=== PATIENT | female | born 1950 | race Caucasian/White ===

== ENCOUNTER → 2016-11-03 | Outpatient (CLI) | payer OTHER ==
[~2016-11-03] VITALS: Ht 157.5 cm; Wt 85.2 kg
[~2016-11-03] MED LIST: ALBUAER19 INH; ASTN NAE; CALC-20 PO; CHOL1CAP57 PO; CYAN10002 IM; CYCL5TAB PO; ESCI1TAB10 PO; FERR1TAB13 PO; FNTTP75 TOP; FRS/40 PO; GABA-113 PO; GABA300C19 PO; IPRA1AER2 INH; LACT1TAB4 PO; LORA-741 PO; MAGN400T5 PO; METO25TA56 PO; MIRA1TAB3 PO; MONT1TAB3 PO; MULT-190 PO; MULTCHW PO; NRN600 PO; OMEP20CA9 PO; ONDA4TAB46 PO; OXYC-57 PO; PANC1200 PO; POTA20TA16 PO; PYRI100T2 PO; RISP3TAB3 PO; SENNTAB23 PO; TRIA0.1P3 BU; [UNRECOGNIZED DRUG - CODE] PO; [UNRECOGNIZED DRUG - OTHER]
[2016-11-03 14:56] VITALS: BP 117/77; PULSE 66; Ht 157.5 cm; Wt 85.2 kg
== END | disposition home or self-care (01) ==
LOC: C.NEUR 13:50
PROVIDERS: ATTEND Internal Medicine Pulmonary Disease
DX: G47.30 Sleep apnea, unspecified (principal)

== ENCOUNTER → 2016-11-05 | Outpatient (CLI) | payer OTHER ==
--- NOTE | 2016-11-05 12:48 | DIAGNOSTIC IMAGING REPORT ---
CERVICAL SPINE 2 OR 3 VIEWS CLINICAL HISTORY: M54.2 Cervical pain (neck)[id number] COMPARISON STUDY: None. FINDINGS: AP, lateral, swimmer's, and odontoid views of the cervical spine were submitted. The cervical spine is visualized C1-T1. There is no fracture or subluxation. Disc spaces are preserved. Prevertebral soft tissues and the C1-C2 interval are intact. There are mild facet degenerative changes at C3-C4 and C6-C7. Mild interstitial thickening within the visualized lungs. This may be chronic. IMPRESSION: 1. No fracture or subluxation within the cervical spine. 2. Mild facet degenerative changes. The disc spaces are preserved. Electronically signed by: Noel Crenshaw M.D. 11/05/2016 12:47 PM Dictated Date/Time: 11/05/2016 12:44 PM
== END | disposition home or self-care (01) ==
LOC: C.RAD1850 11:37
PROVIDERS: ATTEND Internal Medicine
DX: M54.2 Cervicalgia (principal)

== ENCOUNTER → 2016-12-19 | Outpatient (CLI) | payer OTHER ==
--- NOTE | 2016-12-19 11:59 | DIAGNOSTIC IMAGING REPORT ---
RIGHT KNEE 3 VIEWS CLINICAL HISTORY: Chronic right knee pain. FINDINGS: AP, lateral, and sunrise views of the right knee are obtained. No prior studies are available for comparison at the time of dictation. The skeletal structures are osteopenic. A right knee arthroplasty is in near anatomic alignment. No periprosthetic lucency is identified. There has been undersurface remodeling of the patella. No fracture is seen. Mild heterotopic bone formation is noted along the lateral aspect of the joint space. No significant joint effusion is seen. The overlying soft tissues are within normal limits. IMPRESSION: No acute bony abnormality is seen in the right knee noting an arthroplasty in place. Electronically signed by: Chinedu Hicks M.D. 12/19/2016 11:58 AM Dictated Date/Time: 12/19/2016 11:56 AM
--- NOTE | 2016-12-19 12:02 | DIAGNOSTIC IMAGING REPORT ---
L-SPINE MIN 4 VIEWS ROUTINE CLINICAL HISTORY: Chronic back pain. COMPARISON: Lumbar spine MRI February 22, 2016. FINDINGS: Abdominal and pelvic surgical clips are noted. Bowel anastomoses are noted. There is a moderate amount of stool within the colon. Bowel gas pattern is normal. Mild dextroscoliosis of the lumbar spine is unchanged. No acute fracture or suspicious lesion is identified. Mild disc space narrowing at L5-S1 with osteophytosis is noted. There is endplate irregularity centered at the L2-L3 level which is unchanged. Soft tissue calcifications adjacent to the posterior iliac bones are chronic. IMPRESSION: 1. No acute lumbar spine fracture or subluxation. 2. No change in mild dextroscoliosis of the lumbar spine. 3. Mild multilevel degenerative disc disease and facet arthrosis. Electronically signed by: Mehrdad Torre M.D. 12/19/2016 12:01 PM Dictated Date/Time: 12/19/2016 11:59 AM
--- NOTE | 2016-12-19 12:05 | DIAGNOSTIC IMAGING REPORT ---
SINGLE VIEW PELVIS; 2 VIEWS RIGHT HIP CLINICAL HISTORY: Chronic right hip pain. FINDINGS: An AP view of the pelvis with AP and frog-leg views of the right hip are correlated with pelvic CT dated 12/29/2014. The skeletal structures are osteopenic. No fracture is seen in the hips or bony pelvis. Mild arthritic change is present in both hips. There is only mild loss of the joint space. Sclerotic change is noted in the sacroiliac joints. Large gluteal calcifications are again noted. Surgical clips and phleboliths are identified in the pelvis. The overlying soft tissues are within normal limits. IMPRESSION: Osteopenia and minimal arthritic change as above. No acute bony abnormality is seen in the hips or pelvis. Electronically signed by: Chinedu Hicks M.D. 12/19/2016 12:03 PM Dictated Date/Time: 12/19/2016 12:02 PM
--- NOTE | 2016-12-19 12:06 | DIAGNOSTIC IMAGING REPORT ---
RIGHT WRIST MIN 3 VIEWS ROUTINE CLINICAL HISTORY: Right wrist pain. COMPARISON: None FINDINGS: There is mild narrowing of the radiocarpal joint space. No fracture or suspicious lesion is identified. There is mild to moderate arthritis of the right first carpometacarpal joint. No erosions are identified. IMPRESSION: 1. No acute fracture or dislocation of the right wrist. 2. Mild to moderate arthritis of the right first carpometacarpal joint. 2. Mild radiocarpal joint space narrowing. Electronically signed by: Mehrdad Torre M.D. 12/19/2016 12:04 PM Dictated Date/Time: 12/19/2016 12:01 PM
== END | disposition home or self-care (01) ==
LOC: C.RAD1850 11:19
PROVIDERS: ATTEND Internal Medicine
DX: M25.539 Pain in unspecified wrist (principal); M25.551 Pain in right hip; M54.9 Dorsalgia, unspecified

== ENCOUNTER → 2017-03-10 | Outpatient (CLI) | payer OTHER ==
[~2017-03-10] MED LIST changes: +GABA-1218 PO; -GABA300C19 PO; +PREG100C PO
--- NOTE | 2017-03-10 15:25 | DIAGNOSTIC IMAGING REPORT ---
RIGHT HAND MIN 3 VIEWS ROUTINE CLINICAL HISTORY: Osteoarthritis of right thumb. COMPARISON: Right wrist radiographs December 19, 2016. FINDINGS: There is moderate joint space narrowing with osteophytosis of the right first carpometacarpal joint. There is moderate osteoarthritis within distal interphalangeal joints of multiple fingers of the right hand, most pronounced within the second digit. No fracture or suspicious osseous lesion is identified. IMPRESSION: 1. 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 2. Moderate osteoarthritis within multiple additional articulations of the right hand. Electronically signed by: Mehrdad Torre M.D. 03/10/2017 3:24 PM Dictated Date/Time: 03/10/2017 3:22 PM
== END | disposition home or self-care (01) ==
LOC: C.RAD1850 15:08
PROVIDERS: ATTEND Internal Medicine
DX: M19.041 Primary osteoarthritis, right hand (principal)

== ENCOUNTER → 2017-03-27 | Outpatient (CLI) | payer OTHER ==
[~2017-03-27] MED LIST changes: +REGADENOSON 0.4 MG/5 ML SYR ONE
--- NOTE | 2017-03-28 01:13 | MYOCARDIAL PERFUSION SCAN ---
ONE-DAY NUCLEAR MEDICINE TECHNETIUM-99M CARDIOLITE MYOCARDIAL PERFUSION SCAN PRIMARY CARE PHYSICIAN: Dr. Bailey INDICATION: Atypical chest pain, cardiac risk factors. EKG: Baseline EKG showed sinus bradycardia with first degree AV block and nonspecific ST changes. Stress EKG with Lexiscan, patient's heart rate jewels from 56 to 79 beats per minute, maximum predicted heart rate of 50%. There were no significant ST abnormalities. No significant arrhythmias. TECHNIQUE: For the stress portion of the study, 32.1 mCi of technetium-99m Cardiolite IV was injected at 1322 on 03/27/2017. Thirty minutes following the injection, imaging of the heart was performed in multiple projections. For the rest portion of the study, 11.08 mCi of technetium-99m Cardiolite was injected IV at 11:25. One hour following the injection, imaging of the heart was performed in the same projections. FINDINGS: The rotating raw images were reviewed in detail. There was mild breast attenuation and minimal diaphragmatic attenuation. There was also extraminimal gut uptake impacting the inferior imaging border of the heart. There was no significant extracardiac pathologic uptake. The short axis, long axis, vertical long axis images were reviewed in detail. There was no visual TID. There was a small mild, fixed perfusion defect involving the mid anterior septum, apical anterior wall. This was most consistent with breast attenuation and there was normal wall motion in that territory. EF was 85%, end-diastolic volume was 64%. There were no regional wall motion abnormalities. IMPRESSION: 1. Essentially normal Lexiscan myocardial perfusion study with no evidence of significant ischemia or infarct. 2. Normal left ventricular function with an ejection fraction of 85%. Normal left ventricular size. No regional wall motion abnormalities. 3. Nondiagnostic Lexiscan EKG due to inability to achieve target heart rate. MTDD
== END | disposition home or self-care (01) ==
LOC: C.NUCL 10:58
PROVIDERS: ATTEND Internal Medicine Interventional Cardiology
DX: E78.5 Hyperlipidemia, unspecified (principal); R07.89 Other chest pain

== ENCOUNTER → 2017-04-23 | Outpatient (CLI) | payer OTHER ==
[~2017-04-23] MED LIST changes: -GABA-1218 PO; +GABA300C19 PO; +GADAVIST IV PRN; -REGADENOSON 0.4 MG/5 ML SYR ONE
--- NOTE | 2017-04-23 13:42 | DIAGNOSTIC IMAGING REPORT ---
BRAIN COMBO CLINICAL HISTORY: R51 Intractable [id number] headache COMPARISON STUDY: 11/12/2015 TECHNIQUE: Utilizing a 1.5 Micaela magnet and dedicated coil, multiplanar, multiecho imaging of the brain was performed pre and postcontrast administration. IV administration of 8 mL of Gadavist contrast was uneventful. FINDINGS: Mild mucosal thickening right mastoid air cells. Signal characteristics of the cerebellar as well as cerebral hemispheres are unremarkable. There is a small focus of increased signal posterior left frontal lobe unchanged compared to prior exams. No evidence for abnormal postcontrast enhancement. Ventricular system is midline. No evidence for an acute ischemic insult. IMPRESSION: 1. Negative MRI of the brain for age. 2. Mild mucosal thickening right inferior mastoid air cells The above report was generated using voice recognition software. It may contain grammatical, syntax or spelling errors. Electronically signed by: Tano Michaud M.D. 04/23/2017 1:41 PM Dictated Date/Time: 04/23/2017 1:37 PM
== END | disposition home or self-care (01) ==
LOC: C.MRIBC 12:42
PROVIDERS: ATTEND Physician Assistant
DX: R51 Headache (principal)

== ENCOUNTER → 2017-06-02 | Outpatient (CLI) | payer OTHER ==
[~2017-06-02] MED LIST changes: -GADAVIST IV PRN
[2017-06-02 12:21] LABS: BASO % 0.4 %; BASO ABS # 0.02 K/uL (0-0.2); COMPLETE YES; EOS % 1.6 %; HEMATOCRIT 39.6 % (37-47); IG% 0.2 %; LYMPH % 30.6 %; LYMPH ABS # 1.56 K/uL (1.2-3.4); MEAN CELL VOLUME 86.1 fL (80-100); MEAN CORPUSCULAR HEMOGLOBIN 28.3 pg (25-34); MEAN CORPUSCULAR HGB CONC 32.8 g/dl (32-36); MEAN PLATELET VOLUME 9.1 fL (7.4-10.4); MONO % 6.3 %; NEUT % 60.9 %; PLATELET COUNT 230 K/uL (130-400)
[2017-06-02 12:41] LABS: ALT/SGPT 29 U/L (12-78); AST/SGOT 21 U/L (15-37); BLOOD UREA NITROGEN 21 mg/dl (7-18); BUN/CREATININE RATIO 28.8 (10-20); CALCIUM 8.5 mg/dl (8.5-10.1); CARBON DIOXIDE 27 mmol/L (21-32); CHLORIDE 106 mmol/L (98-107); CREATININE 0.73 mg/dl (0.60-1.20); GLUCOSE 91 mg/dl (70-99); POTASSIUM 4.5 mmol/L (3.5-5.1); SODIUM 137 mmol/L (136-145)
[2017-06-02 12:46] LABS: ALB/GLOB RATIO 1.1 (0.9-2); ALKALINE PHOSPHATASE 118 U/L (45-117); TOTAL IRON BINDING CAPACITY 349 mcg/dl (250-450)
== END | disposition home or self-care (01) ==
LOC: C.LAB1850 10:54
PROVIDERS: ATTEND Internal Medicine
DX: R26.89 Other abnormalities of gait and mobility (principal); E53.8 Deficiency of other specified B group vitamins; E55.9 Vitamin D deficiency, unspecified; D51.0 Vitamin B12 deficiency anemia due to intrinsic factor deficiency; E21.3 Hyperparathyroidism, unspecified

== ENCOUNTER → 2017-06-29 | Outpatient (CLI) | payer OTHER | END | disposition home or self-care (01) | LOC: C.MAMM 11:21 | PROVIDERS: ATTEND Internal Medicine | DX: M85.88 Other specified disorders of bone density and structure, other site (principal); M85.852 Other specified disorders of bone density and structure, left thigh; M85.851 Other specified disorders of bone density and structure, right thigh ==

== ENCOUNTER → 2017-09-02 | Outpatient (CLI) | payer OTHER ==
[~2017-09-02] MED LIST changes: -GABA300C19 PO
[2017-09-02 15:18] LABS: BENZODIAZEPINE, URINE NEG (NEG); COCAINE,URINE NEG (NEG); PHENCYCLIDINE, URINE NEG (NEG)
--- NOTE | 2017-09-07 11:45 | CODING QUERY MEDICAL NECESSITY ---
SUPPORTING DIAGNOSIS NEEDED Dr. Bailey, A supporting diagnosis is required for the test/procedure performed on this patient in order for us to be reimbursed by the patient's insurance. Please provide a supporting diagnosis for the following test/procedure listed below next to the test name along with your signature. *If there is no additional diagnosis for this patient that would support the following test/procedure please document that below next to the test/procedure. Test(s)/Procedure(s) that require a supporting diagnosis: * ([id number]) URINE DRUG SCREEN ([facility]) DIAGNOSIS: DATE OF SERVICE: 09/02/17 Provider Signature: Date: Thank you Bhargav Cannon [facility] Information Management Once completed, please kindly fax back to [phone] For questions please call [phone]
== END | disposition home or self-care (01) ==
LOC: C.LABSPEC 14:23
PROVIDERS: ATTEND Internal Medicine
DX: M54.9 Dorsalgia, unspecified (principal)

== ENCOUNTER 2017-12-09 14:34 | Inpatient (IN) | payer OTHER ==
[~2017-12-09] VITALS: Ht 154.9 cm; Wt 90.0 kg
[~2017-12-09 14:34] MED LIST changes: -FNTTP75 TOP; -OXYC-57 PO
[2017-12-09] MEDS ORDERED: LIDOCAINE/EPINEPH/TETRACAINE 1 EA SYR EXT STA (14:49)
[2017-12-09] MEDS ORDERED: ONDANSETRON INJ 2 MG/ML 2 ML VIAL IV STA (14:49)
[2017-12-09] MEDS ORDERED: SODIUM CHLORIDE 0.9% 1000ML 1,000 ML IV STA (14:49)
[2017-12-09] MEDS ORDERED: PREG1CAP70 PO (15:07)
[2017-12-09] MEDS ORDERED: WLC625 PO (15:07)
[2017-12-09] MEDS ORDERED: AMPI500C9 PO (15:07)
[2017-12-09] MEDS ORDERED: TRML160 TOP (15:07)
[2017-12-09] MEDS ORDERED: ALBU18002 INH (15:10)
--- NOTE | 2017-12-09 15:15 | EMERGENCY ROOM VISIT NOTE ---
History Report prepared by Lesley: Eugenia Connor Under the Supervision of: Dr. Boby Norton D.O. First contact with patient: 14:43 Chief Complaint: FALL Stated Complaint: FALL/LACERATION/WRIST PAIN History of Present Illness The patient is a 67 year old female who presents to the Emergency Room with complaints of a fall. The patient was getting gasoline when she tripped on a curb. She fell onto her left side mostly injuring her left upper extremity. The patient denies having any loss of consciousness but she did strike her head and suffered a laceration above her left eyebrow. The patient was splinted. She arrived to the emergency department via EMS. The patient denies having any back pain or abdominal pain. She does complain of neck pain but she states that she has some chronic neck pain. The patient states her pain is very severe especially in her left upper extremity. The patient denies having any nausea vomiting or chest pain. Patient's pain was mildly improved with splinting. Source of History: patient Onset: [employer] Position: arm (left) Symptom Intensity: severe Quality: other (fall) Timing: other (episodic) Modifying Factors (Relieving): other (splinting) Associated Symptoms: + neck pain, No LOC, No chest pain, No nausea, No vomiting, No abdominal pain, No back pain Review of Systems See HPI for pertinent positives & negatives. A total of 10 systems reviewed and were otherwise negative. Past Medical & Surgical Medical Problems: (1) Fever and chills (2) High output heart failure (3) Malnutrition following gastrointestinal surgery (4) Pernicious anemia (5) Wrist fracture, left Family History FH: coronary artery disease FH: diabetes mellitus Social History Smoking Status: Never Smoker Drug Use: none Marital Status: single Occupation Status: disabled Current/Historical Medications Scheduled Ampicillin (Ampicillin), 500 MG PO HS Colesevelam Hcl (Welchol), 625 MG PO TID Desipramine Hcl (Desipramine Hcl), 50 MG PO TID Desipramine Hcl (Desipramine Hcl), 100 MG PO HS Escitalopram Oxalate (Lexapro), 20 MG PO QAM Furosemide (Lasix), 40 MG PO QAM Metoprolol Tartrate (Lopressor) (Lopressor), 12.5 MG PO BID Mirabegron (Myrbetriq Er), 50 MG PO QAM Mometasone Furoate-Formoterol (Dulera 100/5 Mcg), 2 PUFFS INH BID Montelukast Sodium (Singulair), 10 MG PO QPM Omeprazole (Prilosec), 20 MG PO BID Pancrelipase (Lipase-Protease- (Creon 02260), 96,000 UNITS PO TIDM Potassium Ext Rel (Klor-Con), 20 MEQ PO QAM Pregabalin (Lyrica), 150 MG PO BID Risperidone (Risperdal), 3 MG PO HS Triamcinolone (Triamcinolone Acetonide), 1 APPLN TOP BID Scheduled PRN Albuterol Sulfate (Proair Respiclick), 2 PUFFS INH QID PRN for SOB/Wheezing Cyclobenzaprine Hcl (Flexeril), 5 MG PO DAILY PRN for Significant Headaches Lorazepam (Ativan), 0.5 MG PO TID PRN for Anxiety Miscellaneous Medications Cholecalciferol (Vitamin D3) Allergies Coded Allergies: Sulfa Antibiotics (Verified Allergy, Intermediate, Generalized Rash, ) Bupropion (Verified Allergy, Mild, NERVOUS REACTION, 12/09/17) Cephalosporins (Verified Allergy, Mild, UNKNOWN, 12/09/17) Levofloxacin (Verified Allergy, Mild, RASH,TURNED RED, 12/09/17) Prochlorperazine (Verified Allergy, Mild, NERVOUS REACTION, 12/09/17) Promethazine (Verified Allergy, Mild, UNKNOWN, 12/09/17) Tobramycin (Verified Allergy, Mild, UNKNOWN, 12/09/17) Bethanechol (Verified Allergy, Unknown, RASH, "FEELS FUNNY", 12/09/17) Clindamycin (Verified Allergy, Unknown, Unknown, 12/09/17) Per PCP records Dipyridamole (Verified Allergy, Unknown, UNKNOWN, 12/09/17) Droperidol (Verified Allergy, Unknown, Unknown, 12/09/17) Per PCP records Morphine and Related (Verified Allergy, Unknown, Unknown, 12/09/17) Per PCP records Penicillins (Verified Allergy, Unknown, RASH ALL OVER UPPER BODY NO RESP SYMPTOMS, 12/09/17) Piperacillin (Verified Allergy, Unknown, UNKNOWN, 12/09/17) Tazobactam (Verified Allergy, Unknown, RASH ALL OVER UPPER BODY NO RESP SYMPTOMS, 12/09/17) Aspirin (Verified Adverse Reaction, Severe, BLEEDING, 12/09/17) Tedizolid (Verified Adverse Reaction, Severe, GI SYMPTOMS, 12/09/17) Cephalexin (Verified Adverse Reaction, Unknown, GI SYMPTOMS, 12/09/17) VOMITED X 1 Ertapenem (Verified Adverse Reaction, Unknown, RASH, 12/09/17) Physical Exam Vital Signs Date Time Temp Pulse Resp B/P (MAP) Pulse Ox O2 Delivery O2 Flow Rate FiO2 12/09/17 16:23 67 20 101/57 95 Room Air 12/09/17 16:22 101/57 12/09/17 15:04 60 18 97 12/09/17 15:02 60 12/09/17 14:50 36.4 61 20 120/78 97 Room Air 12/09/17 14:36 120/78 Physical Exam GENERAL: Patient is awake and alert. She is very anxious and uncomfortable appearing. She appears to be in significant pain. EYES: The conjunctivae are clear. The pupils are round and reactive. There is a laceration lateral to the left eye. There is a wound dressing in place and no active bleeding was noted. EARS, NOSE, MOUTH AND THROAT: The nose is without any evidence of any deformity. Mucous membranes are moist tongue is midline NECK: The neck is diffusely tender on the paraspinal musculature. There is no midline tenderness. Range of motion appears intact. RESPIRATORY: Normal respiratory effort is noted there is no evidence of wheezing rhonchi or rales CARDIOVASCULAR: Regular rate and rhythm noted there no murmurs rubs or gallops normal S1 normal S2 GASTROINTESTINAL: The abdomen is soft. Bowel sounds are present in all quadrants. Abdomen is nontender BACK: No midline tenderness or or step-off noted range of motion in flexion extension as well as rotation no signs of muscle spasm noted MUSCULOSKELETAL/EXTREMITIES: There is gross deformity noted to the left upper extremity. There is angular deviation noted of the left hand compared to the left forearm. Capillary refill is symmetric. There is no tenderness over the shoulders or either lower extremities. SKIN: There is no obvious evidence of any rash. There is an abrasion over the ventral aspect of the left wrist. There does not appear to be an open fracture but this will be explored more thoroughly. NEUROLOGIC: Patient is awake alert and oriented x3. Strength is symmetric bilaterally. Medical Decision & Procedures ER Provider Diagnostic Interpretation: X-ray results as stated below per interpretation by me and the radiologist. Radiology results as stated below per my review and radiologist interpretation: CHEST ONE VIEW PORTABLE HISTORY: 67 years-old Female fall acute chest injury status post fall COMPARISON: Chest radiograph 06/04/2016 TECHNIQUE: Portable AP view of the chest FINDINGS: Cardiac silhouette is again mildly enlarged. Mild pulmonary vascular congestion with interstitial coarsening. The patient is slightly rotated to the right. There is no pneumothorax, pleural effusion or lobar airspace consolidation. Mild right hemidiaphragmatic elevation. Right internal jugular Bjoilc-l-Ioxr catheter is noted with distal tip in the region of the mid SVC. Surgical clips project over the epigastric region. Degenerative changes noted within the shoulders and spine. IMPRESSION: Cardiomegaly with mild pulmonary vascular congestion. The above report was generated using voice recognition software. It may contain grammatical, syntax or spelling errors. Electronically signed by: Ernesto Kirby M.D. 12/09/2017 3:34 PM Dictated Date/Time: 12/09/2017 3:33 PM L FOREARM 2 VIEWS ROUTINE CLINICAL HISTORY: 67 years-old Female presenting with fall. TECHNIQUE: Frontal and lateral views of the left forearm are obtained. COMPARISON: None. FINDINGS: Extensive soft tissue emphysema. Comminuted fractures of the distal radial and ulnar metaphyses. Significant dorsal displacement of the distal radial fracture fragment and carpus. The distal radial fracture may extend into the radial carpal articulation. The carpus remains intact. IMPRESSION: Open comminuted fractures of the distal radial and ulnar metaphyses with significant dorsal angulation (Colles' type fracture). Electronically signed by: Matthew Hernandez M.D. 12/09/2017 3:40 PM Dictated Date/Time: 12/09/2017 3:36 PM L HAND MIN 3 VIEWS ROUTINE CLINICAL HISTORY: 67 years-old Female presenting with fall. TECHNIQUE: Frontal, oblique, and lateral views of the left hand were obtained. COMPARISON: None. FINDINGS: Comminuted fractures of the distal radial and ulnar metaphyses. Soft tissue emphysema evident. Significant apex volar and apex medial angulation at the fracture sites. The distal radial fracture fragment and carpus are displaced dorsally. The distal radial fracture may be intra-articular, however, no disruption of the radiocarpal articulations. Degenerative changes noted at the first carpometacarpal articulation. Osteopenia suggested. IMPRESSION: Comminuted open fractures of the distal radial and ulnar metaphyses with significant angulation (Colles' type fracture). Electronically signed by: Matthew Hernandez M.D. 12/09/2017 3:50 PM Dictated Date/Time: 12/09/2017 3:[address] SCAN OF THE BRAIN WITHOUT IV CONTRAST CLINICAL HISTORY: Fall. COMPARISON STUDY: CT of the brain dated 08/10/2012. TECHNIQUE: Unenhanced axial CT scan of the brain is performed from the vertex to the skull base. A dose lowering technique was utilized adhering to the principles of ALARA. FINDINGS: Brain parenchyma: There are age-related involutional changes noting mild subcortical and periventricular microangiopathic change. There is no hemorrhage, mass effect, or evidence of acute territorial ischemia by CT criteria. Jerez-white matter is preserved. No extra-axial fluid collection is seen. Ventricles, sulci, cisterns: Prominent secondary to involutional change. Intracranial vasculature: There is atherosclerotic calcification of the cavernous carotid intervertebral arteries. Calvarium: The skeletal structures are osteopenic. No depressed calvarial fracture is seen. Soft tissues: There is left periorbital/supraorbital scalp contusion/laceration. Sinuses and mastoids: There is evidence of previous paranasal sinus surgery. There is moderate mucosal thickening in the right maxillary antrum. Mild mucosal thickening is seen in the left maxillary antrum, the right frontal sinus, and the ethmoid sinuses. The mastoid air cells are well pneumatized. Orbits: The bony orbits are grossly intact. There are bilateral ocular lens implants. IMPRESSION: 1. No acute intracranial abnormality. 2. Left frontal scalp injury. Electronically signed by: Chinedu Hicks M.D. 12/09/2017 4:19 PM Dictated Date/Time: 12/09/2017 4:[address] SCAN OF THE CERVICAL SPINE CLINICAL HISTORY: Fall. COMPARISON STUDY: Radiographs of the cervical spine dated 11/05/2016. TECHNIQUE: CT scan of the cervical spine is performed from the skull base to the upper thoracic spine. Images are reviewed in the axial, sagittal, and coronal planes. IV contrast was not administered for this examination. A dose lowering technique was utilized adhering to the principles of ALARA. CT DOSE: 1056.04 mGy.cm FINDINGS: Skeletal structures: The skeletal structures are osteopenic. There is no evidence of fracture or subluxation involving the cervical spine. Vertebral body height and alignment are maintained. The odontoid process and lateral masses are intact. The atlantoaxial articulation is preserved noting mild productive degenerative change. The spinous processes appear intact. A hemangioma is incidentally noted in the body of C6. Intervertebral discs: The disc spaces are well maintained. Central canal: Widely patent. Soft tissues: The prevertebral and paraspinous soft tissues are within normal limits. A right internal jugular central venous infusion port is in place. Calvarium: The visualized calvarium at the skull base appears intact. Brain parenchyma: Partially visualized brain parenchyma the skull base is within normal limits. Sinuses and mastoids: Moderate mucosal thickening is seen in the right maxillary antrum. Mild mucosal thickening is seen in the left maxillary antrum. The mastoid air cells are well pneumatized. Lung apices: Clear as visualized. IMPRESSION: There is no evidence of fracture or subluxation involving the cervical spine Electronically signed by: Chinedu Hicks M.D. 12/09/2017 4:24 PM Dictated Date/Time: 12/09/2017 4:20 PM Laboratory Results 12/09/17 15:37 Red Blood Count 4.39, Mean Corpuscular Volume 86.3, Mean Corpuscular Hemoglobin 28.5, Mean Corpuscular Hemoglobin Concent 33.0, Mean Platelet Volume 9.4, Neutrophils (%) (Auto) 61.0, Lymphocytes (%) (Auto) 30.7, Monocytes (%) (Auto) 6.2, Eosinophils (%) (Auto) 1.1, Basophils (%) (Auto) 0.5, Neutrophils # (Auto) 3.34, Lymphocytes # (Auto) 1.68, Monocytes # (Auto) 0.34, Eosinophils # (Auto) 0.06, Basophils # (Auto) 0.03 12/09/17 15:37 Test 12/09/17 15:37 White Blood Count 5.48 K/uL (4.8-10.8) Red Blood Count 4.39 M/uL (4.2-5.4) Hemoglobin 12.5 g/dL (12.0-16.0) Hematocrit 37.9 % (37-47) Mean Corpuscular Volume 86.3 fL (80-100) Mean Corpuscular Hemoglobin 28.5 pg (25-34) Mean Corpuscular Hemoglobin Concent 33.0 g/dl (32-36) Platelet Count 209 K/uL (130-400) Mean Platelet Volume 9.4 fL (7.4-10.4) Neutrophils (%) (Auto) 61.0 % Lymphocytes (%) (Auto) 30.7 % Monocytes (%) (Auto) 6.2 % Eosinophils (%) (Auto) 1.1 % Basophils (%) (Auto) 0.5 % Neutrophils # (Auto) 3.34 K/uL (1.4-6.5) Lymphocytes # (Auto) 1.68 K/uL (1.2-3.4) Monocytes # (Auto) 0.34 K/uL (0.11-0.59) Eosinophils # (Auto) 0.06 K/uL (0-0.5) Basophils # (Auto) 0.03 K/uL (0-0.2) RDW Standard Deviation 45.2 fL (36.4-46.3) RDW Coefficient of Variation 14.3 % (11.5-14.5) Immature Granulocyte % (Auto) 0.5 % Immature Granulocyte # (Auto) 0.03 K/uL (0.00-0.02) Prothrombin Time 10.9 SECONDS (9.0-12.0) Prothromb Time International Ratio 1.0 (0.9-1.1) Activated Partial Thromboplast Time 28.9 SECONDS (21.0-31.0) Partial Thromboplastin Ratio 1.1 Anion Gap 5.0 mmol/L (3-11) Est Creatinine Clear Calc Drug Dose 100.4 ml/min Estimated GFR () 112.7 Estimated GFR (Non- 97.3 BUN/Creatinine Ratio 34.9 (10-20) Calcium Level 8.3 mg/dl (8.5-10.1) Total Bilirubin 0.4 mg/dl (0.2-1) Direct Bilirubin < 0.1 mg/dl (0-0.2) Aspartate Amino Transf (AST/SGOT) 16 U/L (15-37) Alanine Aminotransferase (ALT/SGPT) 26 U/L (12-78) Alkaline Phosphatase 117 U/L (45-117) Total Protein 6.3 gm/dl (6.4-8.2) Albumin 3.2 gm/dl (3.4-5.0) Lipase 141 U/L (73-393) Laboratory results per my review. Medications Administered Medications (Trade) Dose Ordered Sig/Zoë Route Start Time Stop Time Status Last Admin Dose Admin Sodium Chloride 1,000 ml @ 999 mls/hr Q1H1M STAT IV 12/09/17 14:49 12/09/17 15:49 DC 12/09/17 14:49 999 MLS/HR Fentanyl Citrate (Fentanyl Inj) 50 mcg Q15M PRN IV 12/09/17 15:00 12/09/17 18:14 DC 12/09/17 15:50 50 MCG Ondansetron HCl (Zofran Inj) 4 mg NOW STAT IV 12/09/17 14:49 12/09/17 14:52 DC 12/09/17 15:18 4 MG Tetracaine/ Epinephrine/ Lidocaine (L.e.t. Gel 4%/ 1:100/0.5%) 1 ea UD STAT EXT 12/09/17 14:49 12/09/17 14:53 DC 12/09/17 15:50 1 EA Cefazolin Sodium 2000 mg/Dextrose 65 ml @ 100 mls/hr ONE STAT IV 12/09/17 15:51 12/09/17 16:29 DC 12/09/17 16:21 100 MLS/HR ED Course 1445: The patient was evaluated in room A10. A complete history and physical examination were performed. 1449: LET Gel EXT, Zofran Inj 4 mg IV, NSS 1000 ml @ 999 mls/hr IV. 1500: Fentanyl Inj 50 mcg IV. 1540: I reevaluated the patient. I updated her on the results. She does not have a preferred orthopedic group. 1545: I discussed the patient's case with Stef Lake PA-C orthopedic surgery [facility] and [facility]. The patient will be evaluated for further management. 1551: Cefazolin Sodium 2000 mg/Dextrose 65 ml @ 100 mls/hr IV. 1555: Upon reevaluation, the patient is stable. I discussed results and treatment plan with her. She verbalizes agreement and understanding. The patient will be evaluated for further management and care. 1600: The laceration was repaired by Nikunj Hidalgo PA-C. See his note for details. Medical Decision Prior records/ancillary studies reviewed. Triage Nursing notes reviewed. The patient's history was concerning for traumatic injury Differential diagnosis: Etiologies such as fracture, dislocation, intra-abdominal, pneumothorax, intrathoracic , intracranial, neurologic, as well as other traumatic pathologies were entertained. The patient is a 67-year-old female who presented to the emergency department after a fall. The patient suffered a fall while she was pumping gasoline for her car. She suffered an injury to the left upper extremity. She also struck the left side of her face. The patient was treated with IV fluids IV pain medicine and IV anti-medics. She was also given IV antibiotics for presumed open fracture. I discussed the patient's laboratory and radiographic studies with her. I also discussed her case with the on-call orthopedic physician. He is agreed to evaluate the patient in the emergency department for further management and disposition. Head Trauma GCS Score: 15 Medication Reconcilliation Current Medication List: was personally reviewed by me Blood Pressure Screening Patient's blood pressure: Normal blood pressure Blood pressure disposition: Did not require urgent referral Consults Time Called: [id number] Consulting Physician: Stef Lake PA-C orthopedic surgery [place] and [facility] Returned Call: [phone] I discussed the patient's case with him. The patient will be evaluated for further management. Impression Primary Impression: Fall Additional Impressions: Open Colles' fracture of left radius Facial laceration Scribe Attestation The scribe's documentation has been prepared under my direction and personally reviewed by me in its entirety. I confirm that the note above accurately reflects all work, treatment, procedures, and medical decision making performed by me. Departure Information Dispostion Being Evaluated By Surgeon Referrals No Doctor, Assigned (PCP) Patient Instructions [facility] Problem Qualifiers Primary Impression: Fall Encounter type: initial encounter Qualified Codes: W19.XXXA - Unspecified fall, initial encounter Additional Impressions: Open Colles' fracture of left radius Encounter type: initial encounter Open fracture type: open type I or II Qualified Codes: S52.532B - Colles' fracture of left radius, initial encounter for open fracture type I or II Facial laceration Encounter type: initial encounter Qualified Codes: S01.81XA - Laceration without foreign body of other part of head, initial encounter
[2017-12-09] MEDS: FENTANYL CITRATE INJ 50 MCG/1 ML 2 ML VIAL IV PRN ×2 (15:17→15:50)
--- NOTE | 2017-12-09 15:36 | DIAGNOSTIC IMAGING REPORT ---
CHEST ONE VIEW PORTABLE HISTORY: 67 years-old Female fall acute chest injury status post fall COMPARISON: Chest radiograph 06/04/2016 TECHNIQUE: Portable AP view of the chest FINDINGS: Cardiac silhouette is again mildly enlarged. Mild pulmonary vascular congestion with interstitial coarsening. The patient is slightly rotated to the right. There is no pneumothorax, pleural effusion or lobar airspace consolidation. Mild right hemidiaphragmatic elevation. Right internal jugular Qtfdfk-l-Envh catheter is noted with distal tip in the region of the mid SVC. Surgical clips project over the epigastric region. Degenerative changes noted within the shoulders and spine. IMPRESSION: Cardiomegaly with mild pulmonary vascular congestion. The above report was generated using voice recognition software. It may contain grammatical, syntax or spelling errors. Electronically signed by: Ernesto Kirby M.D. 12/09/2017 3:34 PM Dictated Date/Time: 12/09/2017 3:33 PM
--- NOTE | 2017-12-09 15:41 | DIAGNOSTIC IMAGING REPORT ---
L FOREARM 2 VIEWS ROUTINE CLINICAL HISTORY: 67 years-old Female presenting with fall. TECHNIQUE: Frontal and lateral views of the left forearm are obtained. COMPARISON: None. FINDINGS: Extensive soft tissue emphysema. Comminuted fractures of the distal radial and ulnar metaphyses. Significant dorsal displacement of the distal radial fracture fragment and carpus. The distal radial fracture may extend into the radial carpal articulation. The carpus remains intact. IMPRESSION: Open comminuted fractures of the distal radial and ulnar metaphyses with significant dorsal angulation (Colles' type fracture). Electronically signed by: Matthew Hernandez M.D. 12/09/2017 3:40 PM Dictated Date/Time: 12/09/2017 3:36 PM
[2017-12-09] MEDS ORDERED: CEFAZOLIN IV 2,000 MG in DEXTROSE 5% 50ML 50 ML IV STA (15:51)
--- NOTE | 2017-12-09 15:52 | DIAGNOSTIC IMAGING REPORT ---
L HAND MIN 3 VIEWS ROUTINE CLINICAL HISTORY: 67 years-old Female presenting with fall. TECHNIQUE: Frontal, oblique, and lateral views of the left hand were obtained. COMPARISON: None. FINDINGS: Comminuted fractures of the distal radial and ulnar metaphyses. Soft tissue emphysema evident. Significant apex volar and apex medial angulation at the fracture sites. The distal radial fracture fragment and carpus are displaced dorsally. The distal radial fracture may be intra-articular, however, no disruption of the radiocarpal articulations. Degenerative changes noted at the first carpometacarpal articulation. Osteopenia suggested. IMPRESSION: Comminuted open fractures of the distal radial and ulnar metaphyses with significant angulation (Colles' type fracture). Electronically signed by: Matthew Hernandez M.D. 12/09/2017 3:50 PM Dictated Date/Time: 12/09/2017 3:49 PM
[2017-12-09] MEDS ORDERED: XYLOCAINE 1%/SOD BICARB 20 ML VIAL INFIL STA (16:02)
[2017-12-09 16:09] LABS: BASO % 0.5 %; BASO ABS # 0.03 K/uL (0-0.2); EOS % 1.1 %; EOS ABS # 0.06 K/uL (0-0.5); HEMATOCRIT 37.9 % (37-47); HEMOGLOBIN 12.5 g/dL (12.0-16.0); IG# 0.03 K/uL (0.00-0.02); LYMPH % 30.7 %; LYMPH ABS # 1.68 K/uL (1.2-3.4); MEAN CELL VOLUME 86.3 fL (80-100); MEAN CORPUSCULAR HEMOGLOBIN 28.5 pg (25-34); MEAN PLATELET VOLUME 9.4 fL (7.4-10.4); MONO % 6.2 %; MONO ABS # 0.34 K/uL (0.11-0.59); NEUT ABS # 3.34 K/uL (1.4-6.5); PLATELET COUNT 209 K/uL (130-400); RED CELL DISTRIBUTION WIDTH CV 14.3 % (11.5-14.5); RED CELL DISTRIBUTION WIDTH SD 45.2 fL (36.4-46.3); WHITE BLOOD COUNT 5.48 K/uL (4.8-10.8)
[2017-12-09 16:17] LABS: PTT PATIENT 28.9 SECONDS (21.0-31.0)
--- NOTE | 2017-12-09 16:21 | DIAGNOSTIC IMAGING REPORT ---
CT SCAN OF THE BRAIN WITHOUT IV CONTRAST CLINICAL HISTORY: Fall. COMPARISON STUDY: CT of the brain dated 08/10/2012. TECHNIQUE: Unenhanced axial CT scan of the brain is performed from the vertex to the skull base. A dose lowering technique was utilized adhering to the principles of ALARA. FINDINGS: Brain parenchyma: There are age-related involutional changes noting mild subcortical and periventricular microangiopathic change. There is no hemorrhage, mass effect, or evidence of acute territorial ischemia by CT criteria. Jerez-white matter is preserved. No extra-axial fluid collection is seen. Ventricles, sulci, cisterns: Prominent secondary to involutional change. Intracranial vasculature: There is atherosclerotic calcification of the cavernous carotid intervertebral arteries. Calvarium: The skeletal structures are osteopenic. No depressed calvarial fracture is seen. Soft tissues: There is left periorbital/supraorbital scalp contusion/laceration. Sinuses and mastoids: There is evidence of previous paranasal sinus surgery. There is moderate mucosal thickening in the right maxillary antrum. Mild mucosal thickening is seen in the left maxillary antrum, the right frontal sinus, and the ethmoid sinuses. The mastoid air cells are well pneumatized. Orbits: The bony orbits are grossly intact. There are bilateral ocular lens implants. IMPRESSION: 1. No acute intracranial abnormality. 2. Left frontal scalp injury. Electronically signed by: Chinedu Hicks M.D. 12/09/2017 4:19 PM Dictated Date/Time: 12/09/2017 4:17 PM
--- NOTE | 2017-12-09 16:25 | DIAGNOSTIC IMAGING REPORT ---
CT SCAN OF THE CERVICAL SPINE CLINICAL HISTORY: Fall. COMPARISON STUDY: Radiographs of the cervical spine dated 11/05/2016. TECHNIQUE: CT scan of the cervical spine is performed from the skull base to the upper thoracic spine. Images are reviewed in the axial, sagittal, and coronal planes. IV contrast was not administered for this examination. A dose lowering technique was utilized adhering to the principles of ALARA. CT DOSE: 1056.04 mGy.cm FINDINGS: Skeletal structures: The skeletal structures are osteopenic. There is no evidence of fracture or subluxation involving the cervical spine. Vertebral body height and alignment are maintained. The odontoid process and lateral masses are intact. The atlantoaxial articulation is preserved noting mild productive degenerative change. The spinous processes appear intact. A hemangioma is incidentally noted in the body of C6. Intervertebral discs: The disc spaces are well maintained. Central canal: Widely patent. Soft tissues: The prevertebral and paraspinous soft tissues are within normal limits. A right internal jugular central venous infusion port is in place. Calvarium: The visualized calvarium at the skull base appears intact. Brain parenchyma: Partially visualized brain parenchyma the skull base is within normal limits. Sinuses and mastoids: Moderate mucosal thickening is seen in the right maxillary antrum. Mild mucosal thickening is seen in the left maxillary antrum. The mastoid air cells are well pneumatized. Lung apices: Clear as visualized. IMPRESSION: There is no evidence of fracture or subluxation involving the cervical spine Electronically signed by: Chinedu Hicks M.D. 12/09/2017 4:24 PM Dictated Date/Time: 12/09/2017 4:20 PM
[2017-12-09 16:26] LABS: ALBUMIN 3.2 gm/dl (3.4-5.0); ALT/SGPT 26 U/L (12-78); AST/SGOT 16 U/L (15-37); BLOOD UREA NITROGEN 20 mg/dl (7-18); CALCIUM 8.3 mg/dl (8.5-10.1); CARBON DIOXIDE 25 mmol/L (21-32); CREATININE 0.57 mg/dl (0.60-1.20); GLUCOSE 107 mg/dl (70-99); LIPASE 141 U/L (73-393); POTASSIUM 3.6 mmol/L (3.5-5.1); SODIUM 140 mmol/L (136-145)
[2017-12-09 16:29] LABS: ALKALINE PHOSPHATASE 117 U/L (45-117); TOTAL PROTEIN 6.3 gm/dl (6.4-8.2)
[2017-12-09] MEDS ORDERED: ONDANSETRON INJ 2 MG/ML 2 ML VIAL IV PRN (16:30)
[2017-12-09] MEDS ORDERED: OXYCODONE/ACETAMINOPHEN 5-325 TAB PO PRN (16:30)
--- NOTE | 2017-12-09 16:35 | EMERGENCY ROOM VISIT NOTE ---
ED Visit Note Patient was seen and evaluated by Dr. Norton. I was asked to perform primary wound closure of the L eyebrow laceration. It was 2 cm in length. Verbal consent was obtained prior to performing the procedure. LET gel and 2 cc of 1% buffered lidocaine was used to anesthetize the L eyebrow laceration. The wound was cleansed and prepped in the typical sterile fashion utilizing normal saline and Betadine. The wound was sterilely draped. Once proper anesthetization was established, the wound was further examined and demonstrated no deep involvement. The wound was copiously irrigated with normal saline and Betadine. The wound was closed using 3 simple, 6-0 nylon sutures with the wound edges being well approximated. Patient tolerated the procedure well. No complications were met. The wound was cleansed and dressed with a Bacitracin dressing. Blood Loss: <1cc Length: 2cm Total sutures: 3
[2017-12-09 16:45] VITALS: O2SAT 95; Ht 154.9 cm; Wt 90.0 kg
[2017-12-09] MEDS ORDERED: IV FLUIDS COMPLETED PRN (17:00)
[2017-12-09 18:00] VITALS: BP 152/82; PULSE 67; O2SAT 99
--- NOTE | 2017-12-09 18:12 | HISTORY & PHYSICAL EXAMINATION ---
DATE OF ADMISSION: 12/09/2017 CHIEF COMPLAINT: Left wrist pain. SECONDARY COMPLAINT: Facial laceration. HISTORY OF PRESENT ILLNESS: Liz is delightful, meeting her for the first time at Emergency Room at [facility]. She is 67. She fell, subacute injury, getting gasoline can and tripped on a curb. She fell to her left upper extremity, suffered acute injury, did hit her head, and did not lose consciousness. Also, injured her elbow. She came to the Emergency Room versus emergency transport, evaluation and treatment. PAST MEDICAL HISTORY: Positive for heart failure, gastrointestinal surgery, pernicious anemia, peptic ulcer disease. PAST SURGICAL HISTORY: Includes multiple stomach surgeries, right knee replacement, cholecystectomy, and hysterectomy. FAMILY HISTORY: Coronary artery disease, diabetes. SOCIAL HISTORY: Nonsmoker, nonuser. She is single. She is disabled. MEDICATIONS: Numerous and listed. ALLERGIES: SULFA, CLINDAMYCIN, TOBRAMYCIN, MORPHINE, PENICILLINS, ASPIRIN AND CEPHALOSPORINS. REVIEW OF SYSTEMS: She denies any blurred vision, double vision, tinnitus, vertigo. Admits to her head injury. Denies chest pain, palpitations, angina. Denies asthma, wheezing, shortness of breath. Denies nausea, vomiting. Does have a history of peptic ulcer disease and multiple surgeries. Denies urgency, frequency or dysuria. Her major complaint is her musculoskeletal left wrist pain. OBJECTIVE: VITAL SIGNS: Blood pressure 120/78, respiration rate is 20, pulse regular at 60, temperature 96.4. GENERAL: She is alert, oriented, comfortable, moderate pain. HEENT: Ear, nose and throat essentially negative. Does have a laceration about the left eye region, superior. NECK: Nontender. PULMONARY: Respiratory rate normal. No wheezing or rhonchi. CARDIAC: Regular rate and rhythm of her heart, no ectopy. ABDOMEN: Soft. Bowel sounds present. EXTREMITIES: There is gross deformity of the left upper extremity, angular deviation, small laceration. SKIN: Intact. No rashes. NEUROLOGICAL: Cranial nerves intact. Facial nerves intact. There is no deficit. No calf tenderness. IMAGING DATA: X-rays demonstrate a comminuted intraarticular fracture of the left distal radius and ulna, significant displacement. She does have some cardiomegaly on chest x-ray. LABORATORY DATA: White blood cell count 5.48, red blood cell count 4.39 and 12.5 hemoglobin. ASSESSMENT: Includes that of a delightful lady with multiple surgeries in the past. Some other significant comorbidities including heart failure, peptic ulcer disease. Acutely, she has a displaced intraarticular left wrist fracture, typically called a Colles fracture. PLAN: I am admitting her to my service for reduction of the wrist, pain control, and observation. Will have a medical consultation, evaluation and treatment to handle take care of her medical problems while she is in the hospital. We anticipate surgery tomorrow about midafternoon and then potentially discharged home on Thursday morning.
[2017-12-09] MEDS ORDERED: ACETAMINOPHEN IV 1,000 MG in EMPTY BAG 0 ML IV SCH (18:30)
[2017-12-09] MEDS: SODIUM CHLORIDE 0.9% 1000ML 1,000 ML IV SCH (18:35)
[2017-12-09] MEDS: OXYCODONE HCL IR 5 MG TAB (IMMEDIATE RELEASE) PO PRN ×2 (18:35→22:30)
[2017-12-09] MEDS ORDERED: CONSULT PHARMACY STA (20:39)
[2017-12-09] MEDS ORDERED: OPTIRAY 320 IV PRN (21:00)
[2017-12-09] MEDS ORDERED: NURSING VERBAL MED ORDER ONE (22:30)
[2017-12-09 23:14] VITALS: BP 122/78; PULSE 68; TEMP 36.4; O2SAT 100
[2017-12-09] MEDS ORDERED: MOME100A INH (23:28)
[2017-12-09] MEDS ORDERED: VTMD1000 (23:28)
[2017-12-09] MEDS ORDERED: CYCLOBENZAPRINE HCL 5 MG TAB PO PRN (23:30)
[2017-12-09] MEDS ORDERED: LORAZEPAM 0.5 MG TAB PO PRN (23:30)
[2017-12-09] MEDS ORDERED: ALBUTEROL HFA 8 GM INHALER INH PRN (23:30)
[2017-12-10] VITALS (9 sets, daily range): BP systolic 86–126; BP diastolic 53–85; PULSE 69–86; TEMP 36.4–36.8; O2SAT 91–100
[2017-12-10] MEDS: DESIPRAMINE 50 MG PO SCH ×5 (00:23→21:34)
[2017-12-10] MEDS: PREGABALIN 150 MG CAP PO SCH ×3 (00:23→21:32)
[2017-12-10] MEDS: METOPROLOL TARTRATE 25 MG TAB PO SCH ×3 (00:24→21:33)
[2017-12-10] MEDS: MONTELUKAST SOD 10 MG TAB PO SCH ×2 (00:24→21:33)
[2017-12-10] MEDS: PANTOprazole SOD 40 MG TAB PO SCH ×3 (00:25→21:34)
[2017-12-10] MEDS: RISPERIDONE 3 MG TAB PO SCH ×2 (00:25→21:33)
[2017-12-10] MEDS ORDERED: HYDROmorphone INJ 0.5 MG/0.5 ML SYR IV STA (00:39)
[2017-12-10] MEDS: OXYCODONE HCL IR 5 MG TAB (IMMEDIATE RELEASE) PO PRN ×3 (04:45→19:34)
[2017-12-10] MEDS: SODIUM CHLORIDE 0.9% 1000ML 1,000 ML IV SCH (05:44)
--- NOTE | 2017-12-10 07:20 | Medical Consult ---
Consultation Date of Consultation: Dec 09, 2017. Attending Physician: Yaron Ram DO Reason for Consultation: medication management History of Present Illness 67-year-old female presented to the ER after a mechanical fall at a gas station where she tripped on a curb. She fell to her upper left extremity and suffered an acute injury to her left wrist. She did hit her head and suffered a facial last 3 sutures. She did not lose consciousness. She came to the emergency room via emergency transport. In the ER the patient was splinted and orthopedics was consulted. Vital signs were stable and she was oxygenating 97% on room air physical exam was remarkable for a gross deformity of the left upper extremity with angular deviation noted of the left hand compared to the left forearm. Capillary refill with symmetric and there was no tenderness over the shoulders or either lower extremities. There was an abrasion over the ventral aspect of the left wrist. There did not appear to be an open fracture initially. Chest x-ray revealed cardiomegaly with mild pulmonary vascular congestion. The patient denied any history of worsening shortness of breath or chest pain in the last 6 months. She reports a chronic exercise tolerance of about 10 feet prior to having to stop to take a breath. 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 Rohith Otoole and no medication or treatment changes were made she denies any weight gain or swelling. Left forearm x-ray reveals an open comminuted fracture of the distal radius and ulnar metaphysis with significant dorsal angulation (Colles' type fracture). Lab work was unremarkable. She was given 1 L normal saline fentanyl 50, Zofran 4 mg, and 1 dose of cefazolin 2 g. The patient was admitted under Dr.'s Ram with potential surgical fix tomorrow. ROS reveals pain in LUE requiring some IV dilaudid. Past Medical/Surgical History Medical Problems: (1) Chronic diastolic (congestive) heart failure Status: Chronic (2) H/O methicillin resistant Staphylococcus aureus Status: Chronic (3) H/O peptic ulcer Status: Chronic (4) Malnutrition following gastrointestinal surgery Status: Chronic (5) Pernicious anemia Status: Chronic (6) Short bowel syndrome Status: Chronic Surgical Problems: (1) History of intestinal surgery Status: Chronic (2) S/P jeanine Status: Chronic (3) S/P hysterectomy Status: Chronic Family History FH: coronary artery disease FH: diabetes mellitus Social History Smoking Status: Never Smoker Smokeless Tobacco Use: No Alcohol Use: none Drug Use: none Marital Status: single Housing Status: lives alone Occupation Status: disabled Allergies Coded Allergies: Sulfa Antibiotics (Verified Allergy, Intermediate, Generalized Rash, ) Bupropion (Verified Allergy, Mild, NERVOUS REACTION, 12/09/17) Cephalosporins (Verified Allergy, Mild, UNKNOWN, 12/09/17) Levofloxacin (Verified Allergy, Mild, RASH,TURNED RED, 12/09/17) Prochlorperazine (Verified Allergy, Mild, NERVOUS REACTION, 12/09/17) Promethazine (Verified Allergy, Mild, UNKNOWN, 12/09/17) Tobramycin (Verified Allergy, Mild, UNKNOWN, 12/09/17) Bethanechol (Verified Allergy, Unknown, RASH, "FEELS FUNNY", 12/09/17) Clindamycin (Verified Allergy, Unknown, Unknown, 12/09/17) Per PCP records Dipyridamole (Verified Allergy, Unknown, UNKNOWN, 12/09/17) Droperidol (Verified Allergy, Unknown, Unknown, 12/09/17) Per PCP records Morphine and Related (Verified Allergy, Unknown, Unknown, 12/09/17) Per PCP records Penicillins (Verified Allergy, Unknown, RASH ALL OVER UPPER BODY NO RESP SYMPTOMS, 12/09/17) Piperacillin (Verified Allergy, Unknown, UNKNOWN, 12/09/17) Tazobactam (Verified Allergy, Unknown, RASH ALL OVER UPPER BODY NO RESP SYMPTOMS, 12/09/17) Aspirin (Verified Adverse Reaction, Severe, BLEEDING, 12/09/17) Tedizolid (Verified Adverse Reaction, Severe, GI SYMPTOMS, 12/09/17) Cephalexin (Verified Adverse Reaction, Unknown, GI SYMPTOMS, 12/09/17) VOMITED X 1 Ertapenem (Verified Adverse Reaction, Unknown, RASH, 12/09/17) Home Medications Active Reported Dulera 100/5 Mcg (Mometasone Furoate-Formoterol) 1 Aer Aer 2 Puffs INH BID 30 Days Vitamin D3 (Cholecalciferol) 1,000 Inter.unit Tab Proair Respiclick (Albuterol Sulfate) 108 Mcg/Act Aer 2 Puffs INH QID PRN Triamcinolone Acetonide (Triamcinolone) 60 Appln/60 Ml Lotn 1 Appln TOP BID Ampicillin 500 Mg Cap 500 Mg PO HS TAKES REGULARLY, PER H AT [facility] Welchol (Colesevelam Hcl) 625 Mg Tab 625 Mg PO TID Lyrica (Pregabalin) 150 Mg Cap 150 Mg PO BID Lasix (Furosemide) 40 Mg Tab 40 Mg PO QAM Desipramine Hcl 50 Mg Tab 100 Mg PO HS TWO 50 MG TABLETS AT BEDTIME Klor-Con (Potassium Chloride) 20 Meq Tabcr 20 Meq PO QAM Myrbetriq Er (Mirabegron) 50 Mg Tab 50 Mg PO QAM Flexeril (Cyclobenzaprine Hcl) 5 Mg Tab 5 Mg PO DAILY PRN PRN Creon 24300 (Pancrelipase (Lipase-Protease-) 1 Cap Cap 96,000 Units PO TIDM FOUR 24,000 UNIT CAPSULES TID WITH MEALS Desipramine Hcl 50 Mg Tab 50 Mg PO TID Ativan (Lorazepam) 0.5 Mg Tab 0.5 Mg PO TID PRN Risperdal (Risperidone) 3 Mg Tab 3 Mg PO HS Prilosec (Omeprazole) 20 Mg Cap 20 Mg PO BID Singulair (Montelukast Sodium) 10 Mg Tab 10 Mg PO QPM Lopressor (Metoprolol Tartrate) 25 Mg Tab 12.5 Mg PO BID Lexapro (Escitalopram Oxalate) 20 Mg Tab 20 Mg PO QAM Current Inpatient Medications Current Inpatient Medications Medications (Trade) Dose Ordered Sig/Zoë Route Start Time Stop Time Status Last Admin Dose Admin Ondansetron HCl (Zofran Inj) 4 mg Q6H PRN IV 12/09/17 16:30 01/08/18 16:29 Sodium Chloride 1,000 ml @ 80 mls/hr [id number] IV 12/09/17 18:15 01/08/18 18:14 12/09/17 18:35 80 MLS/HR Miscellaneous (Iv Fluids Completed) 1 ea PRN PRN N/A 12/09/17 17:00 12/09/18 16:59 Oxycodone HCl (Roxicodone Immediate Rel Tab) `1-2 tabs for pain 1 tab ... Q4H PRN PO 12/09/17 18:30 12/23/17 18:29 12/09/17 22:30 10 MG Ioversol (Optiray 320) 100 ml UD PRN IV 12/09/17 21:00 12/13/17 20:59 Acetaminophen 1000 mg/Empty Bag 100 ml @ 400 mls/hr Q8H IV 12/10/17 08:00 01/09/18 07:59 Heparin Sodium (Porcine) (Heparin 100 Unit/ml 5ml Flush) 5 ml PRN PRN IV 12/09/17 23:30 01/08/18 23:29 Review of Systems At least 10 systems were reviewed and negative except as indicated in HPI. Physical Exam Date Time Temp Pulse Resp B/P (MAP) Pulse Ox O2 Delivery O2 Flow Rate FiO2 12/09/17 18:00 67 16 152/82 (105) 99 Room Air 12/09/17 18:00 99 Room Air 12/09/17 17:34 66 129/76 100 12/09/17 17:04 63 99 12/09/17 16:45 95 Room Air 12/09/17 16:34 68 98 12/09/17 16:23 67 20 101/57 95 Room Air 12/09/17 16:22 101/57 12/09/17 15:04 60 18 97 12/09/17 15:02 60 12/09/17 14:50 36.4 61 20 120/78 97 Room Air 12/09/17 14:36 120/78 General Appearance: WD/WN, no apparent distress Head: normocephalic, atraumatic Eyes: normal inspection, PERRL, sclerae normal ENT: hearing grossly normal, pharynx normal Neck: trachea midline Respiratory/Chest: lungs clear, normal breath sounds, no respiratory distress, no accessory muscle use Cardiovascular: regular rate, rhythm, no edema, no gallop, no JVD, no murmur, normal peripheral pulses Abdomen/GI: normal bowel sounds, non tender, soft, no organomegaly Back: normal inspection Extremities/Musculoskelatal: no pedal edema, + pertinent finding (Left upper extremity is splinted, left finger is purple in color warm to touch, and neurovascularly intact) Neurologic/Psych: 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 as tested, alert, normal mood/affect, oriented x 3 Skin: warm/dry Laboratory Results 12/09/17 15:37 Red Blood Count 4.39, Mean Corpuscular Volume 86.3, Mean Corpuscular Hemoglobin 28.5, Mean Corpuscular Hemoglobin Concent 33.0, Mean Platelet Volume 9.4, Neutrophils (%) (Auto) 61.0, Lymphocytes (%) (Auto) 30.7, Monocytes (%) (Auto) 6.2, Eosinophils (%) (Auto) 1.1, Basophils (%) (Auto) 0.5, Neutrophils # (Auto) 3.34, Lymphocytes # (Auto) 1.68, Monocytes # (Auto) 0.34, Eosinophils # (Auto) 0.06, Basophils # (Auto) 0.03 12/09/17 15:37 Test 12/09/17 15:37 White Blood Count 5.48 K/uL (4.8-10.8) Red Blood Count 4.39 M/uL (4.2-5.4) Hemoglobin 12.5 g/dL (12.0-16.0) Hematocrit 37.9 % (37-47) Mean Corpuscular Volume 86.3 fL (80-100) Mean Corpuscular Hemoglobin 28.5 pg (25-34) Mean Corpuscular Hemoglobin Concent 33.0 g/dl (32-36) Platelet Count 209 K/uL (130-400) Mean Platelet Volume 9.4 fL (7.4-10.4) Neutrophils (%) (Auto) 61.0 % Lymphocytes (%) (Auto) 30.7 % Monocytes (%) (Auto) 6.2 % Eosinophils (%) (Auto) 1.1 % Basophils (%) (Auto) 0.5 % Neutrophils # (Auto) 3.34 K/uL (1.4-6.5) Lymphocytes # (Auto) 1.68 K/uL (1.2-3.4) Monocytes # (Auto) 0.34 K/uL (0.11-0.59) Eosinophils # (Auto) 0.06 K/uL (0-0.5) Basophils # (Auto) 0.03 K/uL (0-0.2) RDW Standard Deviation 45.2 fL (36.4-46.3) RDW Coefficient of Variation 14.3 % (11.5-14.5) Immature Granulocyte % (Auto) 0.5 % Immature Granulocyte # (Auto) 0.03 K/uL (0.00-0.02) Prothrombin Time 10.9 SECONDS (9.0-12.0) Prothromb Time International Ratio 1.0 (0.9-1.1) Activated Partial Thromboplast Time 28.9 SECONDS (21.0-31.0) Partial Thromboplastin Ratio 1.1 Anion Gap 5.0 mmol/L (3-11) Est Creatinine Clear Calc Drug Dose 100.4 ml/min Estimated GFR () 112.7 Estimated GFR (Non- 97.3 BUN/Creatinine Ratio 34.9 (10-20) Calcium Level 8.3 mg/dl (8.5-10.1) Total Bilirubin 0.4 mg/dl (0.2-1) Direct Bilirubin < 0.1 mg/dl (0-0.2) Aspartate Amino Transf (AST/SGOT) 16 U/L (15-37) Alanine Aminotransferase (ALT/SGPT) 26 U/L (12-78) Alkaline Phosphatase 117 U/L (45-117) Total Protein 6.3 gm/dl (6.4-8.2) Albumin 3.2 gm/dl (3.4-5.0) Lipase 141 U/L (73-393) Last 24 Hours Test 12/09/17 15:37 White Blood Count 5.48 K/uL Red Blood Count 4.39 M/uL Hemoglobin 12.5 g/dL Hematocrit 37.9 % Mean Corpuscular Volume 86.3 fL Mean Corpuscular Hemoglobin 28.5 pg Mean Corpuscular Hemoglobin Concent 33.0 g/dl Platelet Count 209 K/uL Mean Platelet Volume 9.4 fL Neutrophils (%) (Auto) 61.0 % Lymphocytes (%) (Auto) 30.7 % Monocytes (%) (Auto) 6.2 % Eosinophils (%) (Auto) 1.1 % Basophils (%) (Auto) 0.5 % Neutrophils # (Auto) 3.34 K/uL Lymphocytes # (Auto) 1.68 K/uL Monocytes # (Auto) 0.34 K/uL Eosinophils # (Auto) 0.06 K/uL Basophils # (Auto) 0.03 K/uL RDW Standard Deviation 45.2 fL RDW Coefficient of Variation 14.3 % Immature Granulocyte % (Auto) 0.5 % Immature Granulocyte # (Auto) 0.03 K/uL Prothrombin Time 10.9 SECONDS Prothromb Time International Ratio 1.0 Activated Partial Thromboplast Time 28.9 SECONDS Partial Thromboplastin Ratio 1.1 Sodium Level 140 mmol/L Potassium Level 3.6 mmol/L Chloride Level 110 mmol/L Carbon Dioxide Level 25 mmol/L Anion Gap 5.0 mmol/L Blood Urea Nitrogen 20 mg/dl Creatinine 0.57 mg/dl Est Creatinine Clear Calc Drug Dose 100.4 ml/min Estimated GFR () 112.7 Estimated GFR (Non- 97.3 BUN/Creatinine Ratio 34.9 Random Glucose 107 mg/dl Calcium Level 8.3 mg/dl Total Bilirubin 0.4 mg/dl Direct Bilirubin < 0.1 mg/dl Aspartate Amino Transf (AST/SGOT) 16 U/L Alanine Aminotransferase (ALT/SGPT) 26 U/L Alkaline Phosphatase 117 U/L Total Protein 6.3 gm/dl Albumin 3.2 gm/dl Lipase 141 U/L Assessment & Plan 67-year-old female status post mechanical fall with left open Colles' wrist fracture 1. Left wrist Colles' fracture after mechanical fall-management per Orth O. Splint in place pain meds as needed. Plan for surgical fixation tomorrow. 2. Chronic diastolic heart failure-compensated. Management per Dr. Rohith Otoole who recently saw her as an outpatient last week. Continue medical management with Lasix 40 mg daily, metoprolol 12.5 mg twice daily. 3. Facial laceration-sutured in the ER. Some ecchymosis present. 4. Asthma-controlled. Continue Dulera, Singulair, and albuterol as needed. No wheezing heard on exam. 5. Depression/anxiety-continue Lexapro and try cyclic antidepressant. Lorazepam as needed 6. History of multiple bowel surgeries and dependence on feeding tube for over 20 years-feeding tube has been removed for several years, multiple scars and incisional hernias on abdominal exam. Patient takes Creon capsules with each meal for chronic pancreatic insufficiency. 7. Chronic pain-continue home regimen including Flexeril as needed, Lyrica. 8. history of MRSA DVT prophylaxis-SCDs Full code Disposition per orthopedics Thank you for this consultation. We will follow the patient throughout her hospital stay. Dr. Roman will assume care in a.m. Dee Mccullough DO [facility]
[2017-12-10] MEDS: DULERA~ORDER AWAITING ACTION SCH ×2 (08:00→16:37)
[2017-12-10] MEDS: PANCREAZE (LIPASE 10,500U) CAP PO SCH ×3 (08:30→19:33)
[2017-12-10] MEDS: ACETAMINOPHEN IV 1,000 MG in EMPTY BAG 0 ML IV SCH ×3 (08:41→19:33)
[2017-12-10] MEDS: ESCITALOPRAM OXALATE 20 MG TAB PO SCH (09:57)
[2017-12-10] MEDS: CHOLECALCIFEROL 1000 INTER.UNIT TAB PO SCH (09:57)
[2017-12-10] MEDS: FUROSEMIDE 40 MG TAB PO SCH (09:57)
[2017-12-10] MEDS: POTASSIUM CHLORIDE 20 MEQ TABCR PO SCH (09:58)
[2017-12-10] MEDS: MIRABEGRON ER 25 MG TAB PO SCH (10:36)
--- NOTE | 2017-12-10 13:43 | Pain Clinic Procedure Note ---
Pain Management Procedure Note Procedure Date Dec 07, 2017. Procedure Description Procedure Time Out: side/site verified, patient ID confirmed, correct procedure Consent Obtained: written Performed By: Dr. Garcia Indications: therapeutic Contraindications: none Pre Procedure Vital Signs Date Time Temp Pulse Resp B/P (MAP) Pulse Ox O2 Delivery O2 Flow Rate FiO2 12/10/17 08:38 71 93/59 (70) 12/10/17 08:15 Room Air 12/10/17 07:16 36.4 71 16 86/53 (64) 91 Room Air ASA Class: 3 Description: INTERLAMINAR EPIDURAL STEROID INJECTION Diagnosis: Lumbar radiculitis, intervertebral disc disease Level injected: L1/L2 Surgeon: Dr. Garcia Prior to starting, the Patients diagnosis and the procedure were reviewed with the patient in detail. Possible risks, complications and alternative therapies were also reviewed. Patients questions were answered. Informed consent was obtained. Allergies and medication list was reviewed. The patient was brought to the fluoroscopy room and placed in prone position on the table. Immediately prior to starting the procedure, a ``time out was conducted with the staff and the patient where the patient was identified, proposed procedure was verified, consent was reviewed and the proper site for the planned procedure was identified. Fluoroscopy was utilized in performing the procedure to assist the placement of the needle, to evaluate the final position of the needle prior to injection and to avoid intravascular injection. Monitors used included intermittent blood pressure with automated device, continuous pulse oximetry and level of consciousness. Patient was not given any intravenous sedation and constant verbal contact was maintained throughout the procedure. Biplanar fluoroscopy was used to assist the placement of the needle and to evaluate final needle position prior to injection. Lumbar-sacral area was prepped with DuraPrep and Betadine solution. Sterile drapes were applied. A true AP view of the superior endplate of the L2 vertebra was obtained. Skin and soft tissue over the inferior aspect of the interlaminar laminar notch was infiltrated with 1 mL of 1% Xylocaine using a 25 gauge needle. Midline approach was utilized. A 20 gauge, 3.5 inch Tuohy needle was then inserted through the anesthetized area and advanced under fluoroscopic guidance through the intraspinous ligaments. C-arm was then turned to a true lateral view and the needle was advanced through the ligamentum flavum into the epidural space with [id number] technique with air. Upon entering the epidural space the patient did not experience pain or paresthesia. Bevel of the needle was directed in the cephalad direction. 6 inch micro bore tubing was attached to the needle and aspiration via the needle demonstrated no CSF or blood. In a lateral view, 1cc Isovue 300 contrast was injected via the needle under live fluoroscopy. The contrast was noted to be in the dorsal epidural space. No subarachnoid spread of contrast was noted. Presence of contrast was verified and contralateral oblique view. Finally, an AP view was then checked and additional 1cc of the contrast was injected under live fluoroscopy. Neither subdural or subarachnoid spread nor intravascular uptake was noted on plain fluoroscopy. No vascular uptake was noted on a 10 second run of digital subtraction angiography at rate of 8 fps. Next, 80 mg Kenalog followed by 3cc of preservation free 0.9% saline was injected via the epidural needle gradually. Patient did not experience any pain , paresthesia or discomfort throughout the injection period. Needle was flushed with additional 0.5 ML of saline withdrawn. Adequate hemostasis was noted. A sterile Band-Aid was applied at the injection site. Patient was then placed in sitting position. Patient was monitored for additional 30 minutes in the waiting area and discharged with an accompanying adult. Discharge instructions were reviewed with the Patient. Any specific questions were answered. Patient voiced understanding of the instructions. Follow-up appointment has been scheduled. Complications: none Patient Tolerated Procedure: well Post-procedure Vital Signs: reviewed and stable Discharge Instructions: reviewed & understood Comments: Potential risks including infection, bleeding, nerve injury, persistent pain at the injection site, reaction to any one of the medication used for the procedure , possibly of postdural puncture headache as well as persistent symptoms after the procedure were discussed with the patient. Alternatives to this procedure were also discussed with the patient. Patient's questions were answered. Patient gave informed consent.
[2017-12-10] MEDS ORDERED: PROPOFOL IV EMULSION 10 MG/ML 20 ML VIAL IV ONE (16:07)
[2017-12-10] MEDS ORDERED: LIDOCAINE HCL 2% 2 ML VIAL (20MG/ML) ONE (16:07)
[2017-12-10] MEDS ORDERED: ONDANSETRON INJ 2 MG/ML 2 ML VIAL ONE (16:07)
[2017-12-10] MEDS ORDERED: FENTANYL CITRATE INJ 50 MCG/1 ML 2 ML VIAL ONE (16:08)
[2017-12-10] MEDS ORDERED: MIDAZOLAM HCL 1 MG/ML 2ML VIAL ONE (16:08)
[2017-12-10] MEDS ORDERED: BUPIVACAINE/EPINEPHRINE 0.5% MPF 1:200,000 30 ML VIAL ONE (16:20)
[2017-12-10] MEDS ORDERED: CEFAZOLIN SOD 1000MG/7.5 ML IV PUSH IV ONE (16:35)
--- NOTE | 2017-12-10 16:39 | History & Physical Bridge Note ---
H&P Re-Evaluation Bridge Note: I have examined the patient, reviewed the History & Physical and in the interval since the performance of the History & Physical I have noted the following changes of clinical significance: No changes noted
[2017-12-10] MEDS ORDERED: NURSING VERBAL MED ORDER ONE (16:45)
[2017-12-10] MEDS ORDERED: BUPIVACAINE 0.5 % 5 MG/1 ML PF 10ML VIAL ONE (17:17)
--- NOTE | 2017-12-10 17:42 | Progress Note ---
Internal Med Progress Note Date of Service: Dec 10, 2017. Provider Documentation: SUBJECTIVE: The patient was seen and examined Complains of some left UE pain No other symptoms OBJECTIVE: Vital Signs-as noted below Exam: General-no distress at rets Eyes-normal ENT-normal Neck-supple Lungs-Clear to auscultate bilaterally Heart-Regular,no murmur appreciated Abdomen-Benign,no masses ,bowel sound present Extremities-No edema Left UE is in bandage Neuro-AAOx3 Lab data as noted below. ASSESSMENT & PLAN: 67-year-old female status post mechanical fall with left open Colles' wrist fracture Left wrist Colles' fracture after mechanical fall-management per Ortho. Splint in place pain meds as needed. Plan for surgical fixation this afternoon . Chronic diastolic heart failure-compensated. Management per Dr. Rohith Otoole who recently saw her as an outpatient last week. Continue medical management with Lasix 40 mg daily, metoprolol 12.5 mg twice daily. No acute symptoms now Medically stable to go for the proposed surgery Facial laceration-sutured in the ER. Some ecchymosis present. Asthma-controlled. Continue Dulera, Singulair, and albuterol as needed. No wheezing heard on exam. Depression/anxiety-continue Lexapro and try cyclic antidepressant. Lorazepam as needed History of multiple bowel surgeries and dependence on feeding tube for over 20 years-feeding tube has been removed for several years, Multiple scars and incisional hernias on abdominal exam. Patient takes Creon capsules with each meal for chronic pancreatic insufficiency. Chronic pain-continue home regimen including Flexeril as needed, Lyrica. History of MRSA No acute infection DVT prophylaxis-SCDs Full code Disposition per orthopedics Vital Signs: Date Time Temp Pulse Resp B/P (MAP) Pulse Ox O2 Delivery O2 Flow Rate FiO2 12/10/17 08:38 71 93/59 (70) 12/10/17 08:15 Room Air 12/10/17 07:16 36.4 71 16 86/53 (64) 91 Room Air 12/10/17 00:28 69 114/75 (88) 12/09/17 23:50 Nasal Cannula 2.0 12/09/17 23:14 36.4 68 15 122/78 (93) 100 Nasal Cannula 2.0 12/09/17 18:00 67 16 152/82 (105) 99 Room Air 12/09/17 18:00 99 Room Air
--- NOTE | 2017-12-10 18:01 | [facility] Post Operative Brief Note ---
Immediate Operative Summary Operative Date Dec 10, 2017. Pre-Operative Diagnosis left wrist fracture Post-Operative Diagnosis left wrist fracture Procedure(s) Performed Left Wrist External Fixator, release left carpal canal Surgeon Dr. Yaron Ram Barber Or Beauty [employer] Manager Surgeon(s) Stef JOSHUA Estimated Blood Loss 20ml Findings Consistent with Post-Op Diagnosis Specimens none per surgeon Drains None Anesthesia Type General Disposition Accompanied Pt To Recover: yes
[2017-12-10] MEDS ORDERED: MAGNESIUM HYDROXIDE SUSP 30 ML UDC PO PRN (18:15)
[2017-12-10] MEDS ORDERED: BISACODYL 10 MG SUPP PR PRN (18:15)
[2017-12-10] MEDS ORDERED: HYDROmorphone INJ 1 MG/ML SYR ONE (18:20)
[2017-12-10] MEDS ORDERED: HYDROmorphone INJ 2 MG/ML SYR/VIAL IV PRN (18:30)
[2017-12-10] MEDS ORDERED: ATROPINE SULFATE 0.1 MG/ML 5ML SYR IV PRN (18:30)
[2017-12-10] MEDS ORDERED: ONDANSETRON INJ 2 MG/ML 2 ML VIAL IV PRN (18:30)
--- NOTE | 2017-12-10 18:47 | DIAGNOSTIC IMAGING REPORT ---
L FOREARM 2 VIEWS ROUTINE HISTORY: 67 years-old Female LEFT DISTAL FOREARM REDUCTION AND EXTERNAL FIXATION status post ORIF of the left forearm with acute distal radius and ulnar fractures COMPARISON: Left forearm radiographs 12/09/2017. TECHNIQUE: 2 spot fluoroscopic images of the left forearm were obtained utilizing 12.9 seconds fluoroscopy time FINDINGS: There is improved alignment of the comminuted fractures of the distal radius and ulna status post reduction. Intra-articular extension of the distal radial fractures suspected. There is now only minimal cortical displacement dorsally. Persistent soft tissue swelling. Orthopedic metallic device is noted overlying the distal radial diaphysis. IMPRESSION: Improved alignment status post reduction of the comminuted distal radial and ulnar fractures. The above report was generated using voice recognition software. It may contain grammatical, syntax or spelling errors. Electronically signed by: Ernesto Kirby M.D. 12/10/2017 6:45 PM Dictated Date/Time: 12/10/2017 6:43 PM
--- NOTE | 2017-12-10 19:21 | OPERATIVE REPORT ---
DATE OF OPERATION: 12/10/2017 PREOPERATIVE DIAGNOSIS: Colles fracture, left upper extremity. POSTOPERATIVE DIAGNOSIS: Colles fracture left upper extremity, carpal tunnel syndrome and hematoma in the palmar aspect of her left hand. PROCEDURE: Reduction of her Colles fracture with an external fixator placement along with a release of her left carpal canal. DESCRIPTION OF PROCEDURE: The patient was examined by me in the preoperative area and holding and in the operating room itself. I was concerned about the coloration and loss of sensation to her fingers, particularly the index and long. My assessment was that she had compression of the carpal canal at the time of her trauma as well and the injury to her distal left radius. A tourniquet was applied to her left upper extremity after a LMA anesthetic. We scrubbed her first, prepped her second, and commenced with surgery and we were able to reduce it fairly readily. Two pins were placed in the index metacarpal, 2 pins in the radius. We were able to reduce it out to a normal length with normal tilt. I was pleased with the reduction and the external fixator was tightened into place. I then addressed the median nerve in the carpal canal of the same hand. I felt it was tight. I felt there was some hematoma involved and indeed there was. I made a skin incision, fascial incision, dissected the palmar fascia, dissected the transverse carpal ligament. There was significant amount of hematoma within the carpal canal; this was evacuated. We irrigated thoroughly. I felt it was safe to close the wounds and we closed with 4-0 nylon suture. Sterile dressings applied. The patient returned to PACU stable. Her condition remains guarded. There were no complications. No specimen and sponge and needle count correct at the close. I attest to the content of the Intraoperative Record and any orders documented therein. Any exception s are noted below.
[2017-12-10] MEDS: WELCHOL~ORDER AWAITING ACTION SCH (19:27)
--- NOTE | 2017-12-10 19:49 | Anesthesiology Progress Note ---
Anesthesia Post Op Note Date & Time Dec 10, 2017 at 19:49 Vital Signs Vital Signs Past 12 Hours Date Time Temp Pulse Resp B/P (MAP) Pulse Ox O2 Delivery O2 Flow Rate FiO2 12/10/17 19:39 86 15 126/82 (97) 99 Nasal Cannula 2.0 12/10/17 19:04 81 16 12/10/17 19:04 81 16 100 12/10/17 19:01 130/75 12/10/17 18:59 81 14 100 12/10/17 18:59 81 14 12/10/17 18:56 127/77 12/10/17 18:54 81 20 99 12/10/17 18:54 81 20 12/10/17 18:52 36.7 12/10/17 18:51 134/78 12/10/17 18:49 82 16 12/10/17 18:49 78 16 99 12/10/17 18:48 82 18 12/10/17 18:48 81 18 98 12/10/17 18:46 132/81 12/10/17 18:43 82 16 12/10/17 18:43 81 16 99 12/10/17 18:41 134/81 12/10/17 18:38 81 14 12/10/17 18:38 81 14 99 12/10/17 18:37 82 16 99 12/10/17 18:37 82 16 12/10/17 18:36 132/74 12/10/17 18:32 83 15 12/10/17 18:32 83 15 99 12/10/17 18:31 140/84 12/10/17 18:27 82 16 12/10/17 18:27 82 16 99 12/10/17 18:26 143/91 12/10/17 18:24 82 14 99 12/10/17 18:24 82 14 12/10/17 18:21 141/86 12/10/17 18:19 82 19 99 12/10/17 18:19 82 19 12/10/17 18:16 146/84 12/10/17 18:14 82 22 12/10/17 18:14 82 22 100 12/10/17 18:11 145/85 12/10/17 18:09 84 25 100 12/10/17 18:09 85 25 12/10/17 18:06 145/83 12/10/17 18:05 142/101 12/10/17 18:04 36.1 88 22 145/83 99 Oxymask 10 12/10/17 18:04 89 19 99 12/10/17 18:04 89 19 12/10/17 08:38 71 93/59 (70) 12/10/17 08:15 Room Air Notes Mental Status: alert / awake / arousable, participated in evaluation Pt Amnestic to Procedure: Yes Nausea / Vomiting: adequately controlled Pain: adequately controlled Airway Patency, RR, SpO2: stable & adequate BP & HR: stable & adequate Hydration State: stable & adequate Anesthetic Complications: no major complications apparent
[2017-12-10] MEDS: POTASSIUM CHLORIDE INJ 10 MEQ in SODIUM CHLORIDE 0.9% 1000ML 1,000 ML IV SCH (21:31)
[2017-12-10] MEDS: DOCUSATE SODIUM 100 MG CAP PO SCH (21:32)
[2017-12-11] VITALS (10 sets, daily range): BP systolic 89–108; BP diastolic 57–72; PULSE 67–83; TEMP 36.7–37; O2SAT 84–97
[2017-12-11] MEDS: CEFAZOLIN IV 2,000 MG in SYRINGE 0 ML IV SCH ×3 (00:33→15:51)
[2017-12-11] MEDS: POTASSIUM CHLORIDE INJ 10 MEQ in SODIUM CHLORIDE 0.9% 1000ML 1,000 ML IV SCH ×2 (04:48→14:32)
[2017-12-11] MEDS: ACETAMINOPHEN IV 1,000 MG in EMPTY BAG 0 ML IV SCH ×2 (04:49→12:13)
[2017-12-11] MEDS: DULERA~ORDER AWAITING ACTION SCH ×4 (08:00→23:25)
[2017-12-11] MEDS: PANCREAZE (LIPASE 10,500U) CAP PO SCH ×3 (09:21→17:55)
[2017-12-11] MEDS: PANTOprazole SOD 40 MG TAB PO SCH ×2 (09:23→21:00)
[2017-12-11] MEDS: METOPROLOL TARTRATE 25 MG TAB PO SCH ×2 (09:23→21:00)
[2017-12-11] MEDS: DESIPRAMINE 50 MG PO SCH ×4 (09:23→21:00)
[2017-12-11] MEDS: POTASSIUM CHLORIDE 20 MEQ TABCR PO SCH (09:23)
[2017-12-11] MEDS: DOCUSATE SODIUM 100 MG CAP PO SCH ×2 (09:23→21:00)
[2017-12-11] MEDS: MIRABEGRON ER 25 MG TAB PO SCH (09:23)
[2017-12-11] MEDS: FUROSEMIDE 40 MG TAB PO SCH (09:24)
[2017-12-11] MEDS: ESCITALOPRAM OXALATE 20 MG TAB PO SCH (09:25)
[2017-12-11] MEDS: CHOLECALCIFEROL 1000 INTER.UNIT TAB PO SCH (09:25)
[2017-12-11] MEDS: WELCHOL~ORDER AWAITING ACTION SCH ×4 (09:25→23:26)
[2017-12-11] MEDS: PREGABALIN 150 MG CAP PO SCH ×2 (09:43→21:00)
[2017-12-11] MEDS: OXYCODONE HCL IR 5 MG TAB (IMMEDIATE RELEASE) PO PRN ×2 (09:44→15:51)
--- NOTE | 2017-12-11 10:06 | Anesthesiology Progress Note ---
Anesthesia Post Op Note Date & Time Dec 11, 2017 at 10:05 Vital Signs Pain Intensity: 10.0 Vital Signs Past 12 Hours Date Time Temp Pulse Resp B/P (MAP) Pulse Ox O2 Delivery O2 Flow Rate FiO2 12/11/17 09:42 97 Room Air 12/11/17 09:22 83 105/70 (82) 12/11/17 08:03 37.0 80 14 98/64 (75) 97 Room Air 12/11/17 02:56 37.0 72 16 103/69 (80) 93 Nasal Cannula 12/11/17 00:30 Nasal Cannula 2.0 12/10/17 22:46 36.8 76 15 106/71 (83) 100 Nasal Cannula 2.0 12/10/17 22:31 36.5 77 14 111/75 (87) 100 Nasal Cannula 2.0 Notes Mental Status: alert / awake / arousable, participated in evaluation Pt Amnestic to Procedure: Yes Nausea / Vomiting: adequately controlled Pain: improving with treatment, see Notes Airway Patency, RR, SpO2: stable & adequate BP & HR: stable & adequate Hydration State: stable & adequate Anesthetic Complications: no major complications apparent RN currently getting pain medication for patient. patient encouraged to take when due for controlled pain or have them call doctor for different/ additional break through pain medications.
--- NOTE | 2017-12-11 15:41 | Progress Note ---
Internal Med Progress Note Date of Service: Dec 11, 2017. Provider Documentation: SUBJECTIVE: The patient was seen and examined Complains of some left UE pain No other symptoms Feels better OOB in a chair Has had Physical Therapy OBJECTIVE: Vital Signs-as noted below Exam: General-no distress at rest Eyes-normal ENT-normal Neck-supple Lungs-Clear to auscultate bilaterally Heart-Regular,no murmur appreciated Abdomen-Benign,no masses ,bowel sound present Extremities-No edema Left UE is in bandage Neuro-AAOx3 Lab data as noted below. ASSESSMENT & PLAN: 67-year-old female status post mechanical fall with left open Colles' wrist fracture Left wrist Colles' fracture after mechanical fall-management per Ortho. Splint in place pain meds as needed. S/P Fixation last evening Minimal Pain at rest . Chronic diastolic heart failure-compensated. Management per Dr. Rohith Otoole who recently saw her as an outpatient last week. Continue medical management with Lasix 40 mg daily, metoprolol 12.5 mg twice daily. Medically stable to go for the proposed surgery No acute symptoms Facial laceration-sutured in the ER. Some ecchymosis present. Asthma-controlled. Continue Dulera, Singulair, and albuterol as needed. No wheezing heard on exam. Depression/anxiety-continue Lexapro and try cyclic antidepressant. Lorazepam as needed Denies any acute symptoms History of multiple bowel surgeries and dependence on feeding tube for over 20 years-feeding tube has been removed for several years, Multiple scars and incisional hernias on abdominal exam. Patient takes Creon capsules with each meal for chronic pancreatic insufficiency. Chronic pain-continue home regimen including Flexeril as needed, Lyrica. Has been on Roxicodone History of MRSA No acute infection DVT prophylaxis-SCDs Full code Disposition per orthopedics Medically stable Vital Signs: Date Time Temp Pulse Resp B/P (MAP) Pulse Ox O2 Delivery O2 Flow Rate FiO2 12/11/17 15:30 36.8 67 18 89/57 (68) 95 Room Air 12/11/17 12:04 36.9 70 14 96/63 (74) 90 Room Air 12/11/17 09:42 97 Room Air 12/11/17 09:22 83 105/70 (82) 12/11/17 08:03 37.0 80 14 98/64 (75) 97 Room Air 12/11/17 08:00 Room Air 12/11/17 02:56 37.0 72 16 103/69 (80) 93 Nasal Cannula 12/11/17 00:30 Nasal Cannula 2.0 12/10/17 22:46 36.8 76 15 106/71 (83) 100 Nasal Cannula 2.0 12/10/17 22:31 36.5 77 14 111/75 (87) 100 Nasal Cannula 2.0 12/10/17 21:10 74 15 113/75 (88) 94 Nasal Cannula 2.0 12/10/17 20:16 82 16 124/85 (98) 98 Nasal Cannula 2.0 12/10/17 19:39 86 15 126/82 (97) 99 Nasal Cannula 2.0 12/10/17 19:10 94 Nasal Cannula 2.0 12/10/17 19:10 36.4 83 15 121/80 (94) 94 Nasal Cannula 2.0 12/10/17 19:10 94 Nasal Cannula 2.0 12/10/17 19:04 81 16 12/10/17 19:04 81 16 100 12/10/17 19:01 130/75 12/10/17 18:59 81 14 100 12/10/17 18:59 81 14 12/10/17 18:56 127/77 12/10/17 18:54 81 20 99 12/10/17 18:54 81 20 12/10/17 18:52 36.7 12/10/17 18:51 134/78 12/10/17 18:49 82 16 12/10/17 18:49 78 16 99 12/10/17 18:48 82 18 12/10/17 18:48 81 18 98 12/10/17 18:46 132/81 18 18:43 82 16 12/10/17 18:43 81 16 99 18 18:41 134/81 12/10/17 18:38 81 14 12/10/17 18:38 81 14 99 12/10/17 18:37 82 16 99 12/10/17 18:37 82 16 12/10/17 18:36 132/74 12/10/17 18:32 83 15 12/10/17 18:32 83 15 99 12/10/17 18:31 140/84 3/8/18 18:27 82 16 12/10/17 18:27 82 16 99 12/10/17 18:26 143/91 12/10/17 18:24 82 14 99 12/10/17 18:24 82 14 12/10/17 18:21 141/86 12/10/17 18:19 82 19 99 12/10/17 18:19 82 19 12/10/17 18:16 146/84 12/10/17 18:14 82 22 12/10/17 18:14 82 22 100 12/10/17 18:11 145/85 12/10/17 18:09 84 25 100 12/10/17 18:09 85 25 12/10/17 18:06 145/83 12/10/17 18:05 142/101 12/10/17 18:04 36.1 88 22 145/83 99 Oxymask 10 12/10/17 18:04 89 19 99 12/10/17 18:04 89 19
[2017-12-11] MEDS ORDERED: OXYC-106 PO (15:49)
--- NOTE | 2017-12-11 15:54 | Discharge Instructions ---
Discharge Instructions Date of Service Dec 11, 2017. Admission Reason for Admission: Wrist Fracture, Left Discharge Discharge Diagnosis / Problem: wrist fracure, head trauma Discharge Goals Goal(s): Improve function Activity Recommendations Activity Limitations: as noted below Lifting Limitations: no more than 5 pounds Exercise/Sports Limitations: until after follow-up appointment May Resume Sexual Activity: after follow-up appointment Shower/Bathe: keep incision dry very limited use of left hand . Instructions / Follow-Up Instructions / Follow-Up HOME, REST, TAKE IT EASY. PATIENT TO CALL OFFICE , THURSDAY @ [phone]. PLEASE MAKE AN APPOINTMENT FOR THE OR December. Current Hospital Diet Patient's current hospital diet: Regular Diet Discharge Diet Recommended Diet: Regular Diet Procedures Procedures Performed: Left Wrist External Fixator, release left carpal canal Pending Studies Studies pending at discharge: no Medical Emergencies . Who to Call and When: Medical Emergencies: If at any time you feel your situation is an emergency, please call 911 immediately. . Non-Emergent Contact Non-Emergency issues call your: Primary Care Provider Call Non-Emergent contact if: you have any medication questions . "Provider Documentation" section prepared by Yaron Ram. .
--- NOTE | 2017-12-11 17:47 | ORTHOPEDICS PROGRESS NOTE ---
DATE: 12/11/2017 SUBJECTIVE: She is alert, oriented. Moderate hand pain, wrist pain post trauma. OBJECTIVE: Vital signs stable. Alert, oriented. White cell count 4.8, hematocrit 37.9. ASSESSMENT: Status post fracture dislocation left wrist, head trauma, and multiple medical problems. DISPOSITION: She needs to stay 1 more day. We will try to get her up and ambulatory, control her pain. Tentative discharge will be tomorrow the 12 of December.
[2017-12-11] MEDS: TRIAMCINOLONE~ORDER AWAITING ACTION SCH ×2 (17:55→23:25)
[2017-12-11] MEDS: MONTELUKAST SOD 10 MG TAB PO SCH (21:00)
[2017-12-11] MEDS: RISPERIDONE 3 MG TAB PO SCH (21:00)
[2017-12-12] MEDS ORDERED: FUROSEMIDE INJ 40 MG in SYRINGE 0 ML IV ONE
[2017-12-12] MEDS: OXYCODONE/ACETAMINOPHEN 10/325MG TAB PO PRN ×2 (00:26→08:05)
[2017-12-12 03:36] VITALS: BP 106/63; PULSE 78; TEMP 36.5; O2SAT 94; O2SAT 98
--- NOTE | 2017-12-12 06:20 | DIAGNOSTIC IMAGING REPORT ---
CHEST ONE VIEW PORTABLE HISTORY: 67 years-old Female acute SOB after fluids, h/o CHF, hypoxic, thx acute shortness of breath COMPARISON: Chest radiograph 12/09/2017 TECHNIQUE: Portable AP view of the chest FINDINGS: Cardiac silhouette is again enlarged. Right internal jugular Oycsta-i-Sapf catheter is unchanged. Mild pulmonary vascular congestion without overt pulmonary edema. Calcifications of the tracheobronchial tree are noted. Mild right hemidiaphragmatic elevation. Linear subsegmental scarring of the lateral left upper lobe is unchanged. Surgical clips project over the epigastric region. Degenerative changes are noted within the shoulders and spine. IMPRESSION: Stable appearance of the chest with cardiomegaly and mild pulmonary vascular congestion. The above report was generated using voice recognition software. It may contain grammatical, syntax or spelling errors. Electronically signed by: Ernesto Kirby M.D. 12/12/2017 6:18 AM Dictated Date/Time: 12/12/2017 6:16 AM
[2017-12-12] MEDS: TRIAMCINOLONE~ORDER AWAITING ACTION SCH ×2 (08:00→16:00)
[2017-12-12] MEDS: WELCHOL~ORDER AWAITING ACTION SCH ×2 (08:00→16:00)
[2017-12-12] MEDS: DULERA~ORDER AWAITING ACTION SCH ×2 (08:00→16:00)
[2017-12-12] MEDS: PANCREAZE (LIPASE 10,500U) CAP PO SCH ×3 (08:24→17:59)
[2017-12-12] MEDS: PANTOprazole SOD 40 MG TAB PO SCH (08:26)
[2017-12-12] MEDS: CHOLECALCIFEROL 1000 INTER.UNIT TAB PO SCH (08:26)
[2017-12-12] MEDS: ESCITALOPRAM OXALATE 20 MG TAB PO SCH (08:26)
[2017-12-12] MEDS: DOCUSATE SODIUM 100 MG CAP PO SCH (08:26)
[2017-12-12] MEDS: POTASSIUM CHLORIDE 20 MEQ TABCR PO SCH (08:28)
[2017-12-12] MEDS: METOPROLOL TARTRATE 25 MG TAB PO SCH (08:28)
[2017-12-12] MEDS: MIRABEGRON ER 25 MG TAB PO SCH (08:29)
[2017-12-12] MEDS: FUROSEMIDE 40 MG TAB PO SCH (08:29)
[2017-12-12] MEDS: DESIPRAMINE 50 MG PO SCH ×2 (08:29→14:33)
[2017-12-12] MEDS: PREGABALIN 150 MG CAP PO SCH (08:34)
[2017-12-12 08:38] VITALS: BP 104/61; PULSE 81; TEMP 37.2; O2SAT 93
--- NOTE | 2017-12-12 09:27 | Discharge Instructions ---
Discharge Instructions Date of Service Dec 12, 2017. Admission Reason for Admission: Wrist Fracture, Left Discharge Discharge Diagnosis / Problem: same, head trauma Discharge Goals Goal(s): Improve function Activity Recommendations Activity Limitations: as noted below Lifting Limitations: no more than 5 pounds, gradually increase as tolerated Exercise/Sports Limitations: until after follow-up appointment Shower/Bathe: keep incision dry home, rest, recover. limited use of left hand . Instructions / Follow-Up Instructions / Follow-Up HOME REST, RECOVER. PATIENT TO CALL OFFICE @ [phone] FOR AN APPOINTMENT NEXT WEEK IN THE OFFICE Current Hospital Diet Patient's current hospital diet: Regular Diet Discharge Diet Recommended Diet: Regular Diet Procedures Procedures Performed: Left Wrist External Fixator, release left carpal canal Pending Studies Studies pending at discharge: no Medical Emergencies . Who to Call and When: Medical Emergencies: If at any time you feel your situation is an emergency, please call 911 immediately. . Non-Emergent Contact Non-Emergency issues call your: Primary Care Provider Call Non-Emergent contact if: you have any medication questions . "Provider Documentation" section prepared by Yaron Ram. .
[2017-12-12 11:09] LABS: HEMOGLOBIN 11.9 g/dL (12.0-16.0); MEAN CORPUSCULAR HEMOGLOBIN 29.1 pg (25-34); MEAN CORPUSCULAR HGB CONC 33.1 g/dl (32-36); MEAN PLATELET VOLUME 8.9 fL (7.4-10.4); PLATELET COUNT 182 K/uL (130-400); RED CELL DISTRIBUTION WIDTH CV 14.5 % (11.5-14.5); RED CELL DISTRIBUTION WIDTH SD 47.2 fL (36.4-46.3); WHITE BLOOD COUNT 9.36 K/uL (4.8-10.8)
[2017-12-12 11:45] LABS: CALCIUM 7.6 mg/dl (8.5-10.1); CREATININE 0.81 mg/dl (0.60-1.20)
[2017-12-12] MEDS ORDERED: POTASSIUM CHLORIDE 10 MEQ TABCR PO STA ×2 (11:58→14:53)
[2017-12-12] MEDS ORDERED: MAGNESIUM CHLORIDE 64MG DELAYED REL TAB PO ONE ×2 (12:00→15:00)
--- NOTE | 2017-12-12 12:06 | Progress Note ---
Internal Med Progress Note Date of Service: Dec 12, 2017. Provider Documentation: SUBJECTIVE: The patient was seen and examined Complains of some left UE pain No other symptoms Has had Some SOB last night Received IV Lasix Much better this AM OBJECTIVE: Vital Signs-as noted below Exam: General-no distress at rest Eyes-normal ENT-normal Neck-supple Lungs-Minimal crackles bilaterally at the Bases Heart-Regular,no murmur appreciated Abdomen-Benign,no masses ,bowel sound present Extremities-No edema Left UE is in bandage Neuro-AAOx3 Lab data as noted below. ASSESSMENT & PLAN: 67-year-old female status post mechanical fall with left open Colles' wrist fracture SOB -last night-secondary to mild CHF The Mild CHF was an Acute Exacerbation of the Chronic Diastolic CHF Received IV Lasix last night Potassium is low Replaced will recheck before discharge PCP appointment made on 12/16 at 12:45 AM Left wrist Colles' fracture after mechanical fall-management per Ortho. Splint in place pain meds as needed. S/P Fixation last evening Minimal Pain at rest . Chronic diastolic heart failure-compensated. Management per Dr. Rohith Otoole who recently saw her as an outpatient last week. Continue medical management with Lasix 40 mg daily, metoprolol 12.5 mg twice daily. Medically stable to go for the proposed surgery No acute symptoms Facial laceration-sutured in the ER. Some ecchymosis present. Asthma-controlled. Continue Dulera, Singulair, and albuterol as needed. No wheezing heard on exam. Depression/anxiety-continue Lexapro and try cyclic antidepressant. Lorazepam as needed Denies any acute symptoms History of multiple bowel surgeries and dependence on feeding tube for over 20 years-feeding tube has been removed for several years, Multiple scars and incisional hernias on abdominal exam. Patient takes Creon capsules with each meal for chronic pancreatic insufficiency. Chronic pain-continue home regimen including Flexeril as needed, Lyrica. Has been on Roxicodone History of MRSA No acute infection DVT prophylaxis-SCDs Full code Disposition per orthopedics Medically stable to be discharged Vital Signs: Lab Results:
[2017-12-12 14:51] LABS: CALCIUM 7.4 mg/dl (8.5-10.1); CREATININE 0.82 mg/dl (0.60-1.20)
[2017-12-12 15:45] VITALS: BP 109/72; PULSE 78; TEMP 37.1; O2SAT 92
[2017-12-12] MEDS: POTASSIUM CHLR 10 MEQ / WTR 10 MEQ in PREMIXED WATER 100 ML IV SCH ×2 (16:13→17:24)
--- NOTE | 2017-12-15 09:11 | EDITING REQUIRED CODING QUERY ---
CODING QUERY To promote full compliance with coding requirements relating to patient care, provider participation is requested in all cases of import/export agent uncertainty. Please assist us with the question(s) below: Coding Question(s): There is documentation on the 12/12/17 Progress Note of the patient having had some SOB last night and received IV Lasix and documentation of SOB last night likely secondary to Mild CHF as well as documentation of Chronic Diastolic heart failure through the record. Please clarify below regarding the Mild CHF type when the patient receiving IV Lasix. (+ ) The Mild CHF was an Acute Exacerbation of the Chronic Diastolic CHF ( ) The Mild CHF was Chronic Diastolic CHF ( ) The Mild CHF was other: Specify Physician's Response(s): Thank you Nadia Murillo Principal Diagnosis: "_that condition established after study, to be chiefly responsible for occasioning the admission of the patient to the hospital for care." Co-Existing Principal Diagnosis: "_when two or more diagnoses equally meet the criteria for principal diagnosis as determined by the circumstances of admission, diagnostic work up, and/or therapy provided, and the Alphabetic Index, Tabular List, or another coding guideline does not provide sequencing direction, any one of the diagnoses may be sequenced first." "When the physician has documented what appears to be a current diagnosis in the body of the record, but has not included the diagnosis in the final diagnostic statement, the physician should be asked whether the diagnosis should be added." (Source Coding [facility] 2 QTR90. p3-4)
--- NOTE | 2017-12-20 16:56 | DISCHARGE SUMMARY ---
HISTORY OF PRESENT ILLNESS: Alert, oriented. Minimal complaints of pain. No chest pain, shortness of breath, no confusion. Vital signs stable. Neurologically intact. Discharged home in improved stable condition. Medications offered, follow up offered; instructions, precautions given to her and through the head nurse as well.
== END 2017-12-12 19:00 | disposition home or self-care (01) | DRG 510 ==
LOC: EDBD 14:34 → C.EDA 14:36 → C.3E 16:25 → ENRESERV 17:22 → OBSVTOIN 12-11 14:58
PROVIDERS: ADMIT Orthopaedic Surgery Orthopaedic Surgery of the Spine; ATTEND Orthopaedic Surgery Orthopaedic Surgery of the Spine
PROC: 0HQ1XZZ Repair Face Skin, External Approach (ICD-10-PCS; 2017-12-09)
PROC: 0PSJ05Z Reposition Left Radius with External Fixation Device, Open Approach (ICD-10-PCS; principal; 2017-12-10 07:30)
PROC: 0J9K0ZZ Drainage of Left Hand Subcutaneous Tissue and Fascia, Open Approach (ICD-10-PCS; principal; 2017-12-10 07:30)
PROC: 01N50ZZ Release Median Nerve, Open Approach (ICD-10-PCS; principal; 2017-12-10 07:30)
DX: S52.532B Colles' fracture of left radius, initial encounter for open fracture type I or II (principal); I50.33 Acute on chronic diastolic (congestive) heart failure; G56.02 Carpal tunnel syndrome, left upper limb; S60.222A Contusion of left hand, initial encounter; S01.112A Laceration without foreign body of left eyelid and periocular area, initial encounter; M54.2 Cervicalgia; G89.29 Other chronic pain; J45.909 Unspecified asthma, uncomplicated; K86.89 Other specified diseases of pancreas; F32.9 Major depressive disorder, single episode, unspecified; F41.9 Anxiety disorder, unspecified; Z79.899 Other long term (current) drug therapy; Z87.11 Personal history of peptic ulcer disease; Z86.14 Personal history of Methicillin resistant Staphylococcus aureus infection; Z88.2 Allergy status to sulfonamides; Z88.8 Allergy status to other drugs, medicaments and biological substances; Z88.1 Allergy status to other antibiotic agents; Z88.5 Allergy status to narcotic agent; Z88.0 Allergy status to penicillin; Z88.6 Allergy status to analgesic agent; Z82.49 Family history of ischemic heart disease and other diseases of the circulatory system; Z83.3 Family history of diabetes mellitus; W22.8XXA Striking against or struck by other objects, initial encounter; Y92.524 Gas station as the place of occurrence of the external cause; Y99.8 Other external cause status

== ENCOUNTER 2018-01-14 08:47 | Day surgery (SDC) | payer OTHER ==
[2018-01-13 08:23] VITALS: Ht 154.9 cm; Wt 79.5 kg
[~2018-01-14] VITALS: Ht 154.9 cm; Wt 79.5 kg
--- NOTE | 2018-01-14 08:40 | HISTORY & PHYSICAL EXAMINATION ---
DATE OF ADMISSION: 01/14/2018 CHIEF COMPLAINT: Left wrist pain and malunion of left wrist. HISTORY: Liz is a most delightful patient. She is 67. She suffered a severe wrist fracture a few weeks ago. She had nice reduction, has gone on to a little bit of malunion and malalignment. She is being set up today for a manipulation under anesthetic of her left wrist fracture. MEDICAL HISTORY: Multiple stomach surgeries, right knee surgery, cholecystectomy, hysterectomy. FAMILY HISTORY: Coronary artery disease, diabetes. SOCIAL HISTORY: Nonsmoker, single, disabled. MEDICATIONS: Numerous and listed. ALLERGIES: SULFA, CLINDAMYCIN, TOBRAMYCIN, MORPHINE, PENICILLIN. REVIEW OF SYSTEMS: She denies any blurred vision, double vision, tinnitus, vertigo, syncope. No current angina. No shortness of breath. No asthma. No nausea or vomiting. No bowel or bladder issues. Her major positive complaint is her left wrist. PHYSICAL EXAMINATION: VITAL SIGNS: Blood pressure 120/78, ____ 20 and regular, temperature 96.4. GENERAL: Alert and oriented. CARDIAC: Normal S1, S2, no ectopy. LUNGS: Clear. ABDOMEN: Soft, nontender. EXTREMITIES: Her extremities are intact x4. She has a small angular deviation. She has no breakage of skin. She has loss of sensation as well. IMPRESSION: Severe wrist fracture malunion with carpal tunnel, median nerve compression. PLAN: Includes a manipulation under anesthetic of her left wrist. We will keep the external fixator intact and hopefully improve alignment.
[~2018-01-14 08:47] MED LIST changes: +ALBU18002 INH; -ALBUAER19 INH; +AMPI500C9 PO; -ASTN NAE; -CALC-20 PO; +CEFAZOLIN 3000MG IV PUSH 22.5 ML IV SCH; -CHOL1CAP57 PO; -CYAN10002 IM; -FERR1TAB13 PO; -GABA-113 PO; -IPRA1AER2 INH; -LACT1TAB4 PO; +LACTATED RINGER'S 1000ML 1,000 ML IV SCH; -MAGN400T5 PO; -METO25TA56 PO; +MOME100A INH; -MULT-190 PO; -MULTCHW PO; -NRN600 PO; +NSS 1000ML IV SCH; -ONDA4TAB46 PO; +POTA-639 PO; -POTA20TA16 PO; -PREG100C PO; +PREG1CAP70 PO; -PYRI100T2 PO; -SENNTAB23 PO; -TRIA0.1P3 BU; +TRML160 TOP; +VTMD1000 PO; +WLC625 PO; -[UNRECOGNIZED DRUG - OTHER]
[2018-01-14] MEDS ORDERED: METO25TA3 PO (09:32)
[2018-01-14 09:35] VITALS: BP 105/65; PULSE 61; TEMP 36.5; O2SAT 95
[2018-01-14] MEDS ORDERED: MEPERIDINE HCL 25 MG/ML CARP IV PRN (09:45)
[2018-01-14] MEDS ORDERED: ONDANSETRON INJ 2 MG/ML 2 ML VIAL IV PRN ×2 (09:45→11:15)
[2018-01-14] MEDS ORDERED: NALOXONE HCL 0.4 MG/1 ML VIAL/CARP IV PRN (09:45)
[2018-01-14] MEDS ORDERED: PHENYLEPHRINE 100MCG/ML 5ML SYR IV PRN (09:45)
[2018-01-14] MEDS ORDERED: ATROPINE SULFATE 0.1 MG/ML 5ML SYR IV PRN (09:45)
[2018-01-14] MEDS ORDERED: EpHEDrine SULFATE INJ 50 MG/ML AMP IV PRN (09:45)
[2018-01-14] MEDS ORDERED: LABETALOL HCL IV 5 MG/ML 20ML IV PRN (09:45)
[2018-01-14] MEDS ORDERED: FLUMAZENIL 0.1 MG/1 ML 10 ML VIAL IV PRN (09:45)
[2018-01-14 09:50] LABS: CALCIUM 8.4 mg/dl (8.5-10.1); CREATININE 0.75 mg/dl (0.60-1.20); POTASSIUM 3.9 mmol/L (3.5-5.1)
[2018-01-14] MEDS ORDERED: FENTANYL CITRATE INJ 50 MCG/1 ML 2 ML VIAL ONE (10:19)
[2018-01-14] MEDS ORDERED: MIDAZOLAM HCL 1 MG/ML 2ML VIAL ONE (10:19)
[2018-01-14] MEDS ORDERED: PROPOFOL IV EMULSION 10 MG/ML 20 ML VIAL IV ONE (10:19)
[2018-01-14] MEDS ORDERED: ONDANSETRON INJ 2 MG/ML 2 ML VIAL ONE (10:19)
[2018-01-14] MEDS ORDERED: LIDOCAINE HCL 2% 2 ML VIAL (20MG/ML) ONE (10:19)
[2018-01-14] MEDS ORDERED: DEXAMETHASONE SOD INJ 4 MG/ML VIAL ONE (10:54)
--- NOTE | 2018-01-14 10:59 | [facility] Post Operative Brief Note ---
Immediate Operative Summary Operative Date Jan 14, 2018. Pre-Operative Diagnosis Malunion Colles Fracture Post-Operative Diagnosis Malunion Colles Fracture Procedure(s) Performed Manipulation Under Anesthesia of Left Wrist Surgeon Dr Ram Multi Purpose Machine Operator Surgeon(s) Stef Lake PA-C Estimated Blood Loss 0cc Findings Consistent with Post-Op Diagnosis Specimens None per surgeon Anesthesia Type General Disposition Disposition: Recovery Room / PACU
[2018-01-14] MEDS ORDERED: SODIUM CHLORIDE 0.9% 1000ML 1,000 ML IV SCH (11:03)
[2018-01-14] MEDS ORDERED: ACETAMINOPHEN 325 MG TAB PO STA (11:03)
--- NOTE | 2018-01-14 11:07 | Discharge Instructions ---
Discharge Instructions Date of Service Jan 14, 2018. Admission Reason for Admission: Left Wrist Fracture Discharge Discharge Diagnosis / Problem: SAME ABOVE Discharge Goals Goal(s): Decrease discomfort, Improve function Activity Recommendations Activity Limitations: as noted below Lifting Limitations: until after follow-up appointment Exercise/Sports Limitations: until after follow-up appointment Shower/Bathe: keep incision dry . Instructions / Follow-Up Instructions / Follow-Up MEDICATIONS: * Resume previous medications unless instructed otherwise by your surgeon. * Always take pain medication on a full stomach or with food to avoid upset stomach. * Do not drink alcohol or drive while taking narcotics. * Ibuprofen or Tylenol may be taken if narcotic not needed. SPECIAL CARE INSTRUCTIONS: __ None _X_ Keep extremity elevated and iced x 48 hours; apply ice 20-30 minutes 8-10 times/day. May remove at night. __ Sling __24 hrs/day __ Remove at night __ Shoulder Immobilizer __ 24 hrs/day __ Remove at night _X_ Dressing _X_ Maintain until seen in office, may shower with plastic over site __ Remove dressings in 24-48 hours and then may shower __ Cover incisions with band-aids after showering __ Do not remove steri-strips Call physician if chills or temperature rises above 102 degrees or pain unrelieved by prescribed pain medications at . . Current Hospital Diet Patient's current hospital diet: Discharge Diet Recommended Diet: Regular Diet Procedures Procedures Performed: Manipulation Under Anesthesia of Left Wrist Pending Studies Studies pending at discharge: no Medical Emergencies . Who to Call and When: Medical Emergencies: If at any time you feel your situation is an emergency, please call 911 immediately. . Non-Emergent Contact Non-Emergency issues call your: Primary Care Provider . "Provider Documentation" section prepared by Stef Lake. .
--- NOTE | 2018-01-14 11:09 | DIAGNOSTIC IMAGING REPORT ---
INTRAOPERATIVE RADIOGRAPHS CLINICAL HISTORY: Operative fixation of the left wrist. Fluoroscopy time: 6 seconds. FINDINGS: 3 spot fluoroscopic views of the left wrist are presented. A traction device has been placed in the left wrist extending from the distal radial shaft to the level of the metacarpals. There are comminuted fractures of the distal radius and ulna with numerous distracted fragments. Alignment is near-anatomic. Overlying soft tissue edema is noted. IMPRESSION: Intraoperative images from traction device placement involving the left wrist as above. See operative report for detailed findings. Electronically signed by: Chinedu Hicks M.D. 01/14/2018 11:08 AM Dictated Date/Time: 01/14/2018 11:05 AM
[2018-01-14] MEDS: FENTANYL CITRATE INJ 50 MCG/1 ML 2 ML VIAL IV PRN ×4 (11:23→11:40)
[2018-01-14] MEDS ORDERED: MEPERIDINE HCL 50 MG/ML CARP ONE (11:38)
--- NOTE | 2018-01-14 11:38 | OPERATIVE REPORT ---
DATE OF OPERATION: 01/14/2018 PREOPERATIVE DIAGNOSIS: Malunion of the left wrist. POSTOPERATIVE DIAGNOSIS: Same. PROCEDURE: Included a closed reduction without general anesthetic and adjustment of the external fixator, left wrist. SURGEON: Yaron Ram DO SLUBBER TENDER: Stef Lake PA-C COMPLICATIONS: Zero. DESCRIPTION OF PROCEDURE: The patient was taken to the surgical suite, a LMA anesthetic successfully provided to the patient. We scrubbed off of her pin sites. We then loosened the external fixator. We were able to reduce her wrist in essentially anatomic position. We took her out of some of the volar flexion, had some radial deviation and lined up fairly well. We tightened down the fixator. Cleaned the pins once again. Retightened the fixator. Sterile dressings applied. She was extubated to PACU stable. No complications. I attest to the content of the Intraoperative Record and any orders documented therein. Any exception s are noted below.
[2018-01-14 12:05] VITALS: BP 109/55; PULSE 66; TEMP 36.6; O2SAT 95
--- NOTE | 2018-01-14 12:15 | Anesthesiology Progress Note ---
Anesthesia Post Op Note Date & Time Jan 14, 2018 at 12:14 Vital Signs Pain Intensity: 2 Vital Signs Past 12 Hours Date Time Temp Pulse Resp B/P (MAP) Pulse Ox O2 Delivery O2 Flow Rate FiO2 01/14/18 11:57 68 20 99 01/14/18 11:57 68 20 01/14/18 11:57 36.9 66 17 105/62 (80) 100 Oxymask 2 01/14/18 11:56 105/62 01/14/18 11:52 65 15 99 01/14/18 11:52 65 15 01/14/18 11:51 65 15 108/57 99 01/14/18 11:51 65 15 01/14/18 11:46 65 13 98 01/14/18 11:46 65 13 01/14/18 11:45 111/61 01/14/18 11:44 65 10 01/14/18 11:44 66 10 98 01/14/18 11:40 107/58 01/14/18 11:39 68 20 01/14/18 11:39 68 20 92 01/14/18 11:36 98/61 01/14/18 11:34 69 16 95 01/14/18 11:34 69 16 01/14/18 11:32 104/54 01/14/18 11:31 77/57 01/14/18 11:29 69 18 01/14/18 11:29 69 18 96 01/14/18 11:26 108/56 01/14/18 11:24 69 13 98 01/14/18 11:24 69 13 01/14/18 11:23 67 15 01/14/18 11:23 67 15 98 01/14/18 11:20 108/60 01/14/18 11:18 67 18 01/14/18 11:18 67 18 99 01/14/18 11:15 107/64 01/14/18 11:13 66 13 01/14/18 11:13 66 13 99 01/14/18 11:10 105/64 01/14/18 11:08 64 20 01/14/18 11:08 64 20 99 01/14/18 11:05 103/58 01/14/18 11:03 63 16 01/14/18 11:03 61 16 101/54 96 01/14/18 11:03 36.7 61 16 101/54 (68) 96 Oxymask 10 01/14/18 09:35 36.5 61 20 105/65 (78) 95 Room Air Notes Mental Status: alert / awake / arousable, participated in evaluation Pt Amnestic to Procedure: Yes Nausea / Vomiting: adequately controlled Pain: adequately controlled Airway Patency, RR, SpO2: stable & adequate BP & HR: stable & adequate Hydration State: stable & adequate Anesthetic Complications: no major complications apparent
[2018-01-14 12:35] VITALS: BP 111/55; PULSE 67; TEMP 36.6; O2SAT 95
== END 2018-01-14 13:26 | disposition home or self-care (01) ==
LOC: C.ACU 08:47
PROVIDERS: ATTEND Orthopaedic Surgery Orthopaedic Surgery of the Spine
DX: S62.102A Fracture of unspecified carpal bone, left wrist, initial encounter for closed fracture (principal); X58.XXXA Exposure to other specified factors, initial encounter; J45.909 Unspecified asthma, uncomplicated; I50.9 Heart failure, unspecified; E66.9 Obesity, unspecified; K21.9 Gastro-esophageal reflux disease without esophagitis; Z88.2 Allergy status to sulfonamides; Z88.8 Allergy status to other drugs, medicaments and biological substances; Z88.1 Allergy status to other antibiotic agents; Z88.5 Allergy status to narcotic agent; Z88.0 Allergy status to penicillin; Z82.49 Family history of ischemic heart disease and other diseases of the circulatory system; Z83.3 Family history of diabetes mellitus; Z98.84 Bariatric surgery status; Z88.6 Allergy status to analgesic agent; Z79.899 Other long term (current) drug therapy

== ENCOUNTER 2019-05-05 20:22 | Inpatient (IN) ==
[2019-05-05] MEDS ORDERED: LIDOCAINE/EPINEPH/TETRACAINE 1 EA SYR EXT STA (20:51)
[2019-05-05] MEDS ORDERED: HYDROCODONE/ACETAMOPHEN 5/325MG TAB PO STA (20:51)
[2019-05-05] MEDS ORDERED: XYLOCAINE 1%/SOD BICARB 20 ML VIAL INFIL ONE (20:51)
[2019-05-05 21:07] LABS: Basophils # (auto) 0.04 K/uL (0-0.2); Basophils % (auto) 0.6 %; Eosinophils # (auto) 0.16 K/uL (0-0.5); Eosinophils % (auto) 2.5 %; Hematocrit (blood only) 35.3 % (37-47); Hemoglobin 11.7 g/dL (12.0-16.0); Immature Granulocytes # (auto) 0.04 K/uL (0.00-0.02); Immature Granulocytes % (auto) 0.6 %; Lymphocytes # (auto) 1.81 K/uL (1.2-3.4); Lymphocytes % (auto) 28.8 %; Mean Corpuscular Hemoglobin 27.3 pg (25-34); Mean Corpuscular Hgb Conc 33.1 g/dL (32-36); Mean Corpuscular Volume 82.3 fL (80-100); Mean Platelet Volume 9.2 fL (7.4-10.4); Monocytes # (auto) 0.65 K/uL (0.11-0.59); Monocytes % (auto) 10.4 %; Neutrophils # (auto) 3.58 K/uL (1.4-6.5); Neutrophils % (auto) 57.1 %; Platelet Count 253 K/uL (130-400); RDW Coefficient of Variation 14.3 % (11.5-14.5); Red Blood Count 4.29 M/uL (4.2-5.4); White Blood Count 6.28 K/uL (4.8-10.8)
--- NOTE | 2019-05-05 21:21 | XRay Report ---
XR tibia fibula LT 2V HISTORY: 68 years-old Female fall, lateral pain acute left lower leg pain status post fall COMPARISON: Left ankle radiographic 05/26/2016 TECHNIQUE: 2 views of the left tibia and fibula FINDINGS: Degenerative changes noted about the knee and ankle. Moderate soft tissue prominence about the mid lo wer leg with soft tissue irregularity and deep tissue air. No acute fracture, dislocation or opaque f oreign body. IMPRESSION: 1. No acute fracture, dislocation or opaque foreign body. 2. Soft tissue swelling with deep tissue air compatible with penetrating trauma. The above report was generated using voice recognition software. It may contain grammatical, syntax o r spelling errors. Electronically signed by: Ernesto Kirby M.D. 05/05/2019 9:19 PM
--- NOTE | 2019-05-05 21:22 | XRay Report ---
XR chest 1V portable HISTORY: 68 years-old Female Chest Pain acute atypical chest pain COMPARISON: Chest radiograph 12/31/2018 TECHNIQUE: Portable AP view of the chest FINDINGS: Cardiac silhouette is enlarged, unchanged. There is mild right hemidiaphragmatic elevation. Chronic i nterstitial coarsening. Stable positioning of the right pectoral Ufjqat-f-Zocb catheter. There is no pneumothorax, pleural effusion or focal airspace consolidation. Surgical clips project over the epiga stric region. Degenerative changes of the shoulders and spine. IMPRESSION: Cardiomegaly with chronic interstitial coarsening. The above report was generated using voice recognition software. It may contain grammatical, syntax o r spelling errors. Electronically signed by: Ernesto Kirby M.D. 05/05/2019 9:20 PM
[2019-05-05 21:23] LABS: Alanine Aminotransferase 20 U/L (12-78); Albumin Level 3.3 gm/dl (3.4-5.0); Aspartate Aminotransferase 18 U/L (15-37); BUN Creatinine Ratio 22.4 (10-20); Blood Urea Nitrogen 17 mg/dl (7-18); Calcium 7.9 mg/dl (8.5-10.1); Carbon Dioxide 27 mmol/L (21-32); Chloride 104 mmol/L (98-107); Creatinine Clr Calc Pharmacy 79.7 ml/min; Est GFR (African American) 96.3; Est GFR (Non-African American) 83.1; Glucose 106 mg/dl (70-99); Lipase 149 U/L (73-393); Potassium 3.3 mmol/L (3.5-5.1); Sodium 137 mmol/L (136-145)
[2019-05-05 21:28] LABS: Alkaline Phosphatase 130 U/L (45-117); Bilirubin,Total 0.2 mg/dl (0.2-1); Globulin 3.2 gm/dl (2.5-4.0); Total Protein 6.5 gm/dl (6.4-8.2); Troponin I < 0.015 ng/ml (0-0.045)
[2019-05-05] MEDS ORDERED: ASPIRIN 325 MG ECTAB PO STA (23:28)
[2019-05-05] MEDS ORDERED: POTASSIUM CHLORIDE 20 MEQ TABCR PO STA (23:33)
[2019-05-05 23:47] LABS: Magnesium 1.8 mg/dl (1.8-2.4)
[2019-05-05 23:55] LABS: Partial Thromboplastin Ratio 1.1; Partial Thromboplastin Time 29.1 Seconds (21.0-31.0)
[2019-05-06 00:04] LABS: NT Pro B Type Natriuretic Pept 206 pg/ml (0-900)
[2019-05-06] MEDS ORDERED: FUROSEMIDE 40 MG in SYRINGE 0 ML IV ONE (00:12)
--- NOTE | 2019-05-06 00:12 | History & Physical Report ---
Date of Service May 06, 2019 Assessment & Plan (1) CHF exacerbation: Subacute symptoms Predominantly right-sided with minimal pulmonary congestion on CXR, normal BNP chronic diastolic heart failure (EF 55 to 60%, TTE 2016) Weight gain of 20 pounds noted from 11/2018 hx LARRY on BIPAP Transient chest pain, SOB following fall possibly from anxiety Traumatic wound, left lower extremity New onset anemia from outpatient blood work 2 weeks ago hypertension, stable asthma, currently stable history of gastric bypass ankylosing spondylitis as per records mood/anxiety disorder, at baseline PCU Diuretic Rx Strict I/Os, daily weights, CHF education, fluid restriction for now Update TTE, Cardiology consult RE subacute CHF exacerbation Anemia work-up DVT prophylaxis. SCDs RE bleeding wound left lower extremity status post repair Full code History of Present Illness Chief Complaint: Chest pain, S OB Primary Care Provider: Frederick Reynaga DO History obtained from patient and records. Medical history significant for chronic diastolic heart failure (EF 55 to 60%, TTE 2016), hypertension, LARRY on BIPAP, asthma, history of gastric bypass, hyperparathyroidism as per records, ankylosing spondylitis as per records, mood/anxiety disorder, history MRSA. Recent confinement December 2017 under Orthopedics service for left wrist fracture sp surgery. Patient seen at PCPs office about 2 weeks ago for increased shortness of breath on exertion, bilateral leg swelling for about 3 to 4 days without chest pain, some weight gain despite compliance with home diuretic Rx. Denies dietary indiscretion, claims to be compliant with home BiPAP. Outpatient BNP noted to be elevated. Outpatient hemoglobin noted to be 11. Increase diuretic Rx for 3 days then back to usual dosing for possible CHF as per records. Improved symptoms as per patient. Last night, patient tripped over some home furniture leading to a mechanical fall. Left leg wound sustained after patient landed on the ground. No head trauma. Patient noted squeezing substernal pain, S OB after episode. No unusual cough symptoms, no fever, no chills. Denies abdominal pain, black/bloody stools. Spontaneous resolution of chest discomfort at the emergency room. Left lower leg wound repaired at the ER. Medical History as above 2016 EGD disclosed esophageal stenosis, gastric bypass 2016 colonoscopy disclosed internal hemorrhoids. 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 Allergies Allergy/AdvReac Type Severity Reaction Status Date / Time Penicillins Allergy Intermediate RASH ALL Verified 05/05/19 21:42 OVER UPPER BODY NO RESP SYMPTOMS piperacillin Allergy Intermediate RASH Verified 05/05/19 21:42 Sulfa (Sulfonamide Allergy Intermediate Generalized Verified 05/05/19 21:42 Antibiotics) Rash tazobactam Allergy Intermediate RASH ALL Verified 05/05/19 21:42 OVER UPPER BODY NO RESP SYMPTOMS bupropion Allergy Mild NERVOUS Verified 05/05/19 21:42 REACTION Cephalosporins Allergy Mild RASH, Verified 05/05/19 21:42 DIARRHEA levofloxacin Allergy Mild RASH,TURNED Verified 05/05/19 21:42 RED prochlorperazine Allergy Mild NERVOUS Verified 05/05/19 21:42 REACTION promethazine Allergy Mild UNKNOWN Verified 05/05/19 21:42 tobramycin Allergy Mild UNKNOWN Verified 05/05/19 21:42 bethanechol Allergy Unknown RASH, Verified 05/05/19 21:42 "FEELS FUNNY" clindamycin Allergy Unknown Unknown Verified 05/05/19 21:42 dipyridamole Allergy Unknown UNKNOWN Verified 05/05/19 21:42 droperidol Allergy Unknown Unknown Verified 05/05/19 21:42 morphine Allergy Unknown NERVOUS Verified 05/05/19 21:42 REACTION TO IT aspirin AdvReac Severe BLEEDING Verified 05/05/19 21:42 tedizolid AdvReac Severe GI SYMPTOMS Verified 05/05/19 21:42 ertapenem AdvReac Intermediate RASH Verified 05/05/19 21:42 cephalexin AdvReac Mild GI SYMPTOMS Verified 05/05/19 21:42 Home Medications Home Medications Medication Instructions Recorded Confirmed Type albuterol sulfate 90 mcg/actuation 2 puffs INH Q4H PRN 06/17/18 05/05/19 History breath activated powder inhaler colesevelam 625 mg tablet 625 mg PO TID tab 06/17/18 05/05/19 History cyclobenzaprine 5 mg tablet 5 mg PO HS PRN 06/17/18 05/05/19 History desipramine 50 mg tablet 150 mg PO QAM tab 06/17/18 05/05/19 History escitalopram 20 mg tablet 20 mg PO QAM tab 06/17/18 05/05/19 History furosemide 40 mg tablet 40 mg PO QAM 06/17/18 05/05/19 History lorazepam 0.5 mg tablet 0.5 mg PO TID tab 06/17/18 05/05/19 History montelukast 10 mg tablet 10 mg PO HS 06/17/18 05/05/19 History omeprazole magnesium 20 mg 20 mg PO AMHS 06/17/18 05/05/19 History tablet,delayed release potassium chloride ER 20 mEq 20 meq PO QAM 06/17/18 05/05/19 History tablet,extended release(part/cryst) pregabalin 150 mg capsule 150 mg PO BID 06/17/18 05/05/19 History risperidone 3 mg tablet 3 mg PO HS tab 06/17/18 05/05/19 History metoprolol tartrate 25 mg PO QAM 11/20/18 05/05/19 History Lactobacillus acidoph-L.bulgar 1 tab PO TID 05/05/19 05/05/19 History [Floranex] ampicillin 500 mg PO HS 05/05/19 05/05/19 History calcium carbonate-vitamin D3 1 tab PO DAILY 05/05/19 05/05/19 History [Calcium 600 + D(3)] cholecalciferol (vitamin D3) 2,000 unit PO QDD 05/05/19 05/05/19 History [Vitamin D3] desipramine 100 mg PO HS 05/05/19 05/05/19 History diclofenac sodium 2 g TOPICAL DIRECTED 05/05/19 05/05/19 History ipratropium-albuterol 3 ml INHALATION Q4H PRN 05/05/19 05/05/19 History qrrezz-dyhrmfuc-vcydfvs [Creon] 4 cap PO TID 05/05/19 05/05/19 History mirabegron [Myrbetriq] 50 mg PO DAILY 05/05/19 05/05/19 History jwuqwpbd-wkr-wtok-FA-lutein 1 tab PO DAILY 05/05/19 05/05/19 History [Centrum Silver Women] mupirocin 1 applic TOPICAL BID 05/05/19 05/05/19 History ondansetron HCl [Zofran] 4 mg PO TID PRN 05/05/19 05/05/19 History pyridoxine (vitamin B6) [Vitamin 100 mg PO BID 05/05/19 05/05/19 History B-6] umeclidinium [Incruse Ellipta] 1 inh INHALATION DAILY 05/05/19 05/05/19 History Past Med/Surg History Social History Preferred Language: Malay Communication Ability: Effective Mortgage Consultant Required: No Beliefs That Will Affect Care: None Current Living Situation: Alone Other Information That Helps Us Care for You: No Feels Safe at Home: Yes Safety Concerns: Feels Safe At This Time Smoking Status: Never smoker Hx Alcohol Use: Yes Alcohol type: hard liquor Hx Substance Use: No Review of Systems Review of Systems: As per HPI, all 10 systems reviewed, all other ROS negative Physical Exam Physical Exam: GENERAL: Comfortable, slightly anxious, obese, no respiratory distress SKIN: Normal color, warm HEENT: Bespectacled, pink palpebral conjunctivae, no ptosis, dry buccal mucosa NECK : Supple, short, no tenderness CHEST : Decreased breath sounds, no tenderness HEART : RRR, systolic murmur ABDOMEN: Some distention, nontender EXTREMITIES : Bilateral LE swelling, no RLE tenderness, dressing over LLE NEUROLOGIC : Coherent, no facial asymmetry, no other gross focality Results & Data Vital Signs (Past 12 Hours) Vital Signs Temp Pulse Resp BP Pulse Ox 05/05/19 22:01 61 16 111/63 99 05/05/19 21:49 60 17 106/64 98 05/05/19 21:07 61 19 100 05/05/19 20:29 61 17 143/80 H 98 05/05/19 20:27 36.5 C 62 18 143/80 H 100 Laboratory Results Laboratory Results WBC 6.28 K/uL (4.8-10.8) 05/05/19 21:00 RBC 4.29 M/uL (4.2-5.4) 05/05/19 21:00 Hgb 11.7 g/dL (12.0-16.0) L 05/05/19 21:00 Hct 35.3 % (37-47) L 05/05/19 21:00 MCV 82.3 fL (80-100) 05/05/19 21:00 MCH 27.3 pg (25-34) 05/05/19 21:00 MCHC 33.1 g/dL (32-36) 05/05/19 21:00 RDW Std Deviation 43.0 fL (36.4-46.3) 05/05/19 21:00 RDW Coeff of David 14.3 % (11.5-14.5) 05/05/19 21:00 Plt Count 253 K/uL (130-400) 05/05/19 21:00 MPV 9.2 fL (7.4-10.4) 05/05/19 21:00 Immature Gran % (Auto) 0.6 % 05/05/19 21:00 Neut % (Auto) 57.1 % 05/05/19 21:00 Lymph % (Auto) 28.8 % 05/05/19 21:00 Bracken % (Auto) 10.4 % 05/05/19 21:00 Eos % (Auto) 2.5 % 05/05/19 21:00 Baso % (Auto) 0.6 % 05/05/19 21:00 Immature Gran # (Auto) 0.04 K/uL (0.00-0.02) H 05/05/19 21:00 Neut # (Auto) 3.58 K/uL (1.4-6.5) 05/05/19 21:00 Lymph # (Auto) 1.81 K/uL (1.2-3.4) 05/05/19 21:00 Bracken # (Auto) 0.65 K/uL (0.11-0.59) H 05/05/19 21:00 Eos # (Auto) 0.16 K/uL (0-0.5) 05/05/19 21:00 Baso # (Auto) 0.04 K/uL (0-0.2) 05/05/19 21:00 APTT 29.1 Seconds (21.0-31.0) 05/05/19 21:00 PTT Ratio 1.1 05/05/19 21:00 Sodium 137 mmol/L (136-145) 05/05/19 21:00 Potassium 3.3 mmol/L (3.5-5.1) L 05/05/19 21:00 Chloride 104 mmol/L (98-107) 05/05/19 21:00 Carbon Dioxide 27 mmol/L (21-32) 05/05/19 21:00 Anion Gap 6.0 (3-11) 05/05/19 21:00 BUN 17 mg/dl (7-18) 05/05/19 21:00 Creatinine 0.75 mg/dl (0.6-1.2) 05/05/19 21:00 Est Cr Clr Drug Dosing 79.7 ml/min 05/05/19 21:00 Est GFR ( Amer) 96.3 05/05/19 21:00 Est GFR (Non-Af Amer) 83.1 05/05/19 21:00 BUN/Creatinine Ratio 22.4 (10-20) H 05/05/19 21:00 Glucose 106 mg/dl (70-99) H 05/05/19 21:00 Calcium 7.9 mg/dl (8.5-10.1) L 05/05/19 21:00 Magnesium 1.8 mg/dl (1.8-2.4) 05/05/19 21:00 Total Bilirubin 0.2 mg/dl (0.2-1) 05/05/19 21:00 AST 18 U/L (15-37) 05/05/19 21:00 ALT 20 U/L (12-78) 05/05/19 21:00 Alkaline Phosphatase 130 U/L (45-117) H 05/05/19 21:00 Troponin I < 0.015 ng/ml (0-0.045) 05/05/19 21:00 NT-Pro-B Natriuret Pep 206 pg/ml (0-900) 05/05/19 21:00 Total Protein 6.5 gm/dl (6.4-8.2) 05/05/19 21:00 Albumin 3.3 gm/dl (3.4-5.0) L 05/05/19 21:00 Globulin 3.2 gm/dl (2.5-4.0) 05/05/19 21:00 Albumin/Globulin Ratio 1.0 (0.9-2) 05/05/19 21:00 Lipase 149 U/L (73-393) 05/05/19 21:00 TSH 2.970 uIu/ml (0.300-4.500) 05/05/19 21:00 Diagnostic Findings Chest x-ray showed Cardiomegaly with chronic interstitial coarsening. EKG as per my interpretation : Rate 60, NSR, LAD, LAFB, LVH, T wave flattening inferior, anterolateral leads Tibia-fibula x-ray: 1. No acute fracture, dislocation or opaque foreign body. 2. Soft tissue swelling with deep tissue air compatible with penetrating trauma.
[2019-05-06] MEDS ORDERED: FUROSEMIDE 40 MG/4 ML VIAL IV STA (00:19)
[2019-05-06] MEDS ORDERED: TRAMADOL HCL 50 MG TABLET PO PRN (01:21)
[2019-05-06] MEDS ORDERED: NITROGLYCERIN SL 0.4 MG/TAB TAB SL PRN (01:21)
[2019-05-06] MEDS ORDERED: ACETAMINOPHEN 325 MG TAB PO PRN (01:21)
[2019-05-06] MEDS ORDERED: METOCLOPRAMIDE HCL INJ 5 MG/ML 2 ML VIAL IV PRN (01:21)
[2019-05-06] MEDS ORDERED: HYDROmorphone INJ 0.5 MG/0.5 ML SYR IV PRN (01:21)
[2019-05-06] MEDS ORDERED: risperiDONE 3 MG TABLET PO SCH (01:21)
[2019-05-06] MEDS: PREGABALIN 150 MG CAP PO SCH ×2 (02:32→09:19)
[2019-05-06] MEDS: LORazepam 0.5 MG TAB PO SCH ×2 (02:32→09:19)
--- NOTE | 2019-05-06 02:33 | Emergency Department Note ---
Entered by Susan Walden acting as a scribe for ED Provider Note CHIEF COMPLAINT: Fall HISTORY OF PRESENT ILLNESS: The patient is a 68 year old female who presents to the Emergency Room with complaints of a complaint of a fall. Per EMS, the patient tripped and fell over an ottoman and cut her lower left leg. The patient states that she caught her fall with her arms, but denies pain in her upper extremities. The patient denies hitting her head and losing consciousness. The patient states that she has a history of asthma and is currently experiencing chest pain and shortness of breath. The patient notes that these symptoms started when she saw her blood. The patient states that she uses an inhaler and nebulizer at home as needed. The patient states that the pain in her leg is pretty bad and is requesting pain medication. Pt denies LOC, headache, fevers, chills, diaphoresis, visual changes, neck pain, nausea, vomiting, abdominal pain, back pain, melena, he matochezia, urinary symptoms, numbness, weakness, lymphadenopathy, rash, or other complaints. REVIEW OF SYSTEMS: See HPI for pertinent positives and negatives. A total of ten systems were reviewed and were otherwise negative. PMHx/PSHx: Palpitations, peptic ulcer disease, hysterectomy, cholecystectomy, lumbar stenosis. SOCIAL HISTORY: Patient lives at home. PHYSICAL EXAM: GENERAL: Awake, alert, uncomfortable-appearing, in no distress HENT: Normocephalic, atraumatic. Oropharynx unremarkable. EYES: PERRL. Normal conjunctiva. Sclera non-icteric. NECK: Inspection normal. Non-tender. Supple. No nuchal rigidity. FROM. No masses. RESPIRATORY: Clear to auscultation. No wheezes. No rales. Normal respiratory effort. CARDIAC: Normal rate. Normal rhythm. No murmurs. No rubs. Extremities warm and well perfused. Pulses equal. No JVD. GI: Soft, non-distended. No tenderness to palpation. No rebound or guarding. No masses. RECTAL: Deferred. MUSCULOSKELETAL: Atraumatic. Chest examination reveals no tenderness. The back is symmetrical on inspection without obvious abnormality. There is no CVA tenderness to palpation. No joint edema. LOWER EXTREMITIES: Knee replacement on right side. "L" shaped laceration to lateral left lower leg. Calves are equal size bilaterally and non-tender. No edema. No discoloration. NEURO: Normal sensorium. No sensory or motor deficits noted. SKIN: No rash or jaundice noted. EMERGENCY DEPARTMENT COURSE: 2025: Past medical records reviewed. The patient was evaluated in room A12, and a complete history and physical examination were performed. 2157: I updated the patient on the test results.I performed a laceration repair at this time. 2327: I discussed the patient's case with Dr. Cummings- [facility] Hospitalist. He will evaluate the patient for further management. MEDICAL DECISION MAKING: A12 Prior records/ancillary studies reviewed. Triage Nursing notes reviewed and agree them. Additional history obtained from the EMS crew. The patient's history was concerning for an accidental fall, leg laceration with bleeding and chest pain. Differential diagnosis: Etiologies such as soft tissue injury, fracture, dislocation, foreign body, cardiac ischemia, aortic dissection, pulmonary embolism, pneumonia, pne umothorax, musculoskeletal, infections, pericarditis, myocarditis, esophageal rupture, gastrointestinal, as well as others were entertained. Physical examination: As above. Patient has a 10 cm L-shaped laceration to the left lower leg. ER treatment provided: Let gel Oral Isanti. Laceration repair by me. Enteric-coated aspirin On reassessment the patient felt better. Diagnostic interpretation by me: The electrocardiogram was concerning for T wave inversions in lead V3. Somewhat subtle nonspecific changes in the anterior leads otherwise. The labs revealed an unremarkable CBC and chemistry panel. LFTs lipase negative. The patient's troponin was normal. Imaging studies: Chest x-ray was negative for acute disease. The patient had no fracture, dislocation, foreign body noted on leg imaging. The patient had an episode of chest pain and shortness of breath. This was relieved with oxygen. She was very stressed about the wound and bleeding. She does have some subtle changes on her ECG compared to prior. The wound was repaired. Given the patient's history and the chest pain further management in the hospital is warranted. I did discuss the case with the [facility] rafa. Consultation: A consultation was placed with the [facility] hospitalist. The case was discussed and diagnostics were reviewed. The patient was evaluated in the ER for further treatment. IMPRESSION: Substernal chest pain, laceration of left leg 10 cm, fall PLAN: Being evaluated by Hospitalist PROCEDURE: Location: Left leg Total length: 10 cm Complexity: Complex Verbal consent was obtained after the risks and benefits were explained, including but not limited to bleeding, scarring, infection, pain, and bone/joint/nerve damage. At this time, the risks of the procedure are less than the risks of NOT performing the procedure. A time out was taken and the correct patient and site identified. The skin was prepped with betadine. The target area was anesthetized with LET gel and 4 ml of 1% lidocaine without epinephrine. Copious irrigation was performed using saline. The skin was re-prepped with betadine and a sterile field set. The wound was explored for foreign bodies and none found. Examination revealed no injury to deep structures such as tendons, bone, or significant blood vessels. Debridement was not performed. The wound edges were approximated using two 4-0 vicryl deep sutured and eleven 4-0 simple interrupted nylon sutures and dermabond. Hemostasis and excellent approximation was achieved. Antibacterial ointment and a sterile dressing applied. Detailed wound care instructions and signs and symptoms of infection reviewed with the patient. No complications and the patient tolerated the procedure well. The scribe's documentation has been prepared under my direction and personally reviewed by me in its entirety. I confirm that the note above accurately re flects all work, treatment, procedures, and medical decision making performed by me. Impression & Plan Substernal chest pain, Laceration of left leg Past Med/Surg History Social History Preferred Language: Latvian Communication Ability: Effective Spring Forger Required: No Beliefs That Will Affect Care: None Current Living Situation: Alone Other Information That Helps Us Care for You: No Feels Safe at Home: Yes Safety Concerns: Feels Safe At This Time Smoking Status: Never smoker Hx Alcohol Use: Yes Alcohol type: hard liquor Hx Substance Use: No Results & Data Vital Signs Vital Signs - 24 hr 05/05/19 20:27 05/05/19 20:29 05/05/19 21:07 Temperature 36.5 C Temperature Source Oral Sepsis Recent Fever Within 48 Hours No Sepsis New/Unexplained Change in Mental Status No Sepsis Action Taken by Nursing No Action Required Pulse Rate 62 61 61 Pulse Rate from SpO2 Sensor 62 Pulse Rhythm Regular Regular Respiratory Rate 18 17 19 Respiratory Effort / Characteristics Non-Labored Respiratory Depth Normal Respiratory Pattern Regular Blood Pressure 143/80 H 143/80 H Blood Pressure Mean 101 101 Pulse Oximetry 100 98 100 Oxygen Delivery Method Room Air Room Air Room Air 05/05/19 21:49 05/05/19 22:01 Temperature Temperature Source Sepsis Recent Fever Within 48 Hours Sepsis New/Unexplained Change in Mental Status Sepsis Action Taken by Nursing Pulse Rate 60 61 Pulse Rate from SpO2 Sensor 61 61 Pulse Rhythm Respiratory Rate 17 16 Respiratory Effort / Characteristics Respiratory Depth Respiratory Pattern Blood Pressure 106/64 111/63 Blood Pressure Mean 78 79 Pulse Oximetry 98 99 Oxygen Delivery Method Room Air Room Air Home Medications Current Medication List: was personally reviewed by me Laboratory Data Attestation: I reviewed the patient's lab results. Result diagrams: 05/05/19 21:00 05/05/19 21:00 Lab Results 05/05/19 05/05/19 05/05/19 Range/Units 21:00 21:00 21:00 WBC 6.28 (4.8-10.8) K/uL RBC 4.29 (4.2-5.4) M/uL Hgb 11.7 L (12.0-16.0) g/dL Hct 35.3 L (37-47) % MCV 82.3 (80-100) fL MCH 27.3 (25-34) pg MCHC 33.1 (32-36) g/dL RDW Std Deviation 43.0 (36.4-46.3) fL RDW Coeff of David 14.3 (11.5-14.5) % Plt Count 253 (130-400) K/uL MPV 9.2 (7.4-10.4) fL Immature Gran % (Auto) 0.6 % Neut % (Auto) 57.1 % Lymph % (Auto) 28.8 % Payette % (Auto) 10.4 % Eos % (Auto) 2.5 % Baso % (Auto) 0.6 % Immature Gran # (Auto) 0.04 H (0.00-0.02) K/uL Neut # (Auto) 3.58 (1.4-6.5) K/uL Lymph # (Auto) 1.81 (1.2-3.4) K/uL Payette # (Auto) 0.65 H (0.11-0.59) K/uL Eos # (Auto) 0.16 (0-0.5) K/uL Baso # (Auto) 0.04 (0-0.2) K/uL APTT 29.1 (21.0-31.0) Seconds PTT Ratio 1.1 Sodium 137 (136-145) mmol/L Potassium 3.3 L (3.5-5.1) mmol/L Chloride 104 (98-107) mmol/L Carbon Dioxide 27 (21-32) mmol/L Anion Gap 6.0 (3-11) BUN 17 (7-18) mg/dl Creatinine 0.75 (0.6-1.2) mg/dl Est Cr Clr Drug Dosing 79.7 ml/min Est GFR ( Amer) 96.3 Est GFR (Non-Af Amer) 83.1 BUN/Creatinine Ratio 22.4 H (10-20) Glucose 106 H (70-99) mg/dl Calcium 7.9 L (8.5-10.1) mg/dl Magnesium 1.8 (1.8-2.4) mg/dl Total Bilirubin 0.2 (0.2-1) mg/dl AST 18 (15-37) U/L ALT 20 (12-78) U/L Alkaline Phosphatase 130 H (45-117) U/L Troponin I < 0.015 (0-0.045) ng/ml NT-Pro-B Natriuret Pep 206 (0-900) pg/ml Total Protein 6.5 (6.4-8.2) gm/dl Albumin 3.3 L (3.4-5.0) gm/dl Globulin 3.2 (2.5-4.0) gm/dl Albumin/Globulin Ratio 1.0 (0.9-2) Lipase 149 (73-393) U/L TSH 2.970 (0.300-4.500) uIu/ml Administered Medications Lorazepam (Ativan) 0.5 mg PO TID CATE Stop: 06/05/19 01:20 Last Admin: 05/06/19 02:32 Dose: 0.5 mg Documented by: [id number] Pregabalin (Lyrica) 150 mg PO BID CATE Stop: 06/05/19 01:20 Last Admin: 05/06/19 02:32 Dose: 150 mg Documented by: [id number] Risperidone (Risperdal) 3 mg PO HS CATE Stop: 06/05/19 01:20 Last Admin: 05/06/19 02:32 Dose: 3 mg Documented by: [id number] Discontinued Medications Hydrocodone Bitart/Acetaminophen (Isanti 5/325) 1 tab PO NOW STA Stop: 05/05/19 20:52 Last Admin: 05/05/19 21:18 Dose: 1 tab Documented by: [id number] Aspirin (Ecotrin) 325 mg PO NOW STA Stop: 05/05/19 23:29 Last Admin: 05/05/19 23:50 Dose: 325 mg Documented by: [id number] Furosemide (Lasix) 40 mg IV ONE STA Stop: 05/06/19 00:20 Last Admin: 05/06/19 01:14 Dose: 40 mg Documented by: [id number] Lidocaine (Let Gel 4%/1:100/0.5%) 1 ea EXT NOW STA Stop: 05/05/19 20:52 Last Admin: 05/05/19 21:18 Dose: 1 ea Documented by: [id number] Lidocaine HCl (Buffered Lidocaine 1%) 20 ml INFIL NOW ONE Stop: 05/05/19 20:52 Last Admin: 05/05/19 21:23 Dose: 20 ml Documented by: [id number] Potassium Chloride (Klor-Con M20) 40 meq PO NOW STA Stop: 05/05/19 23:34 Last Admin: 05/05/19 23:50 Dose: 40 meq Documented by: [id number] Imaging Data Radiologist's Impression: Radiology results as stated below per my review and the radiologist's interpretation: XR chest 1V portable HISTORY: 68 years-old Female Chest Pain acute atypical chest pain COMPARISON: Chest radiograph 12/31/2018 TECHNIQUE: Portable AP view of the chest FINDINGS: Cardiac silhouette is enlarged, unchanged. There is mild right hemidiaphragmatic elevation. Chronic interstitial coarsening. Stable positioning of the right pectoral [id number] catheter. There is no pneumothorax, pleural effusion or focal airspace consolidation. Surgical clips project over the epigastric region. Degenerative changes of the shoulders and spine. IMPRESSION: Cardiomegaly with chronic interstitial coarsening. The above report was generated using voice recognition software. It may contain grammatical, syntax or spelling errors. Electronically signed by: Ernesto Kirby M.D. 05/05/2019 9:20 PM XR tibia fibula LT 2V HISTORY: 68 years-old Female fall, lateral pain acute left lower leg pain status post fall COMPARISON: Left ankle radiographic 05/26/2016 TECHNIQUE: 2 views of the left tibia and fibula FINDINGS: Degenerative changes noted about the knee and ankle. Moderate soft tissue prominence about the mid lower leg with soft tissue irregularity and deep tissue air. No acute fracture, dislocation or opaque foreign body. IMPRESSION: 1. No acute fracture, dislocation or opaque foreign body. 2. Soft tissue swelling with deep tissue air compatible with penetrating trauma. The above report was generated using voice recognition software. It may contain grammatical, syntax or spelling errors. Electronically signed by: Ernesto Kirby M.D. 05/05/2019 9:19 PM ECG Data Attestation: I personally reviewed and interpreted this ECG as follows: Indication: chest pain Rate (beats per minute): 62 Rhythm: normal sinus Findings: + other (left ventricular hypertrophy) and + T-wave inversion (anteriorly); no ST elevation Comparison ECG Date: from (06/05/2016) Change: the following changes noted (T-wave inversion anteriorly is new) Blood Pressure Blood Pressure Findings: Normal blood pressure Blood Pressure Disposition: did not require urgent referral Discharge Plan Visit Data *Final* Discharge Date/Time: 05/06/19 01:09 Chief Complaint: Fall Stated Complaint: Fall, left leg laceration ED Provider: Yaron Ch Discharge Problem: Substernal chest pain, Laceration of left leg Patient Disposition: Admitted As Inpatient Discharge Instructions Interventions: ED Discharge Assessment Last Done: 05/06/19 01:09 Discharge Problem: Laceration of left leg Qualifiers: Encounter type: initial encounter Qualified Code(s): S81.812A - Laceration without foreign body, left lower leg, initial encounter The scribe's documentation has been prepared under my direction and personally reviewed by me in its entirety. I confirm that the note above accurately reflects all work, treatment, procedures, and medical decision making performed by me.
[2019-05-06 05:32] LABS: Basophils # (auto) 0.03 K/uL (0-0.2); Basophils % (auto) 0.6 %; Eosinophils # (auto) 0.16 K/uL (0-0.5); Hemoglobin 11.6 g/dL (12.0-16.0); Immature Granulocytes # (auto) 0.03 K/uL (0.00-0.02); Immature Granulocytes % (auto) 0.6 %; Lymphocytes # (auto) 1.59 K/uL (1.2-3.4); Lymphocytes % (auto) 29.4 %; Mean Corpuscular Hemoglobin 27.4 pg (25-34); Mean Corpuscular Hgb Conc 33.1 g/dL (32-36); Mean Corpuscular Volume 82.5 fL (80-100); Mean Platelet Volume 9.2 fL (7.4-10.4); Monocytes # (auto) 0.43 K/uL (0.11-0.59); Neutrophils # (auto) 3.16 K/uL (1.4-6.5); Neutrophils % (auto) 58.4 %; Platelet Count 245 K/uL (130-400); RDW Coefficient of Variation 14.3 % (11.5-14.5); RDW Standard Deviation 42.9 fL (36.4-46.3); Red Blood Count 4.24 M/uL (4.2-5.4); Reticulocyte % 1.7 % (0.5-2.0); Reticulocytes # 0.07 10^6/uL (0.02-0.10)
[2019-05-06 05:51] LABS: Partial Thromboplastin Ratio 1.1; Partial Thromboplastin Time 29.3 Seconds (21.0-31.0)
[2019-05-06 05:59] LABS: BUN Creatinine Ratio 25.5 (10-20); Calcium 8.3 mg/dl (8.5-10.1); Creatinine Clr Calc Pharmacy 90.5 ml/min; Est GFR (African American) 108.3; Est GFR (Non-African American) 93.5; Potassium 3.2 mmol/L (3.5-5.1)
[2019-05-06 06:05] LABS: Ferritin 10.7 ng/ml (8-388)
[2019-05-06] MEDS ORDERED: LACTOBACILLUS ACIDOPHILUS (FLORANEX) TAB PO SCH (08:00)
[2019-05-06] MEDS ORDERED: COLESEVELAM~ORDER AWAITING ACTION SCH (08:00)
[2019-05-06] MEDS ORDERED: PANCREAZE (LIPASE 16,800U) CAP PO SCH (08:00)
[2019-05-06] MEDS ORDERED: PYRIDOXINE HCL 50 MG TAB PO SCH (09:00)
[2019-05-06] MEDS ORDERED: FUROSEMIDE 80 MG in SYRINGE 0 ML IV SCH (09:00)
[2019-05-06] MEDS ORDERED: DESIPRAMINE HCL 50 MG TAB PO SCH ×2 (09:00→21:00)
[2019-05-06] MEDS ORDERED: ESCITALOPRAM OXALATE 20 MG TAB PO SCH (09:00)
[2019-05-06] MEDS ORDERED: ASPIRIN 81 MG ECTAB PO SCH (09:00)
[2019-05-06] MEDS ORDERED: PANTOprazole 40 MG TAB PO SCH (09:00)
[2019-05-06] MEDS ORDERED: MIRABEGRON ER 25 MG TAB PO SCH (09:00)
[2019-05-06] MEDS ORDERED: METOPROLOL TARTRATE 25 MG TAB PO SCH (09:00)
[2019-05-06] MEDS ORDERED: CEROVITE ADV FORMULA TAB PO SCH (09:00)
[2019-05-06] MEDS ORDERED: POTASSIUM CHLORIDE 20 MEQ TABCR PO SCH ×2 (09:00)
[2019-05-06] MEDS ORDERED: FUROSEMIDE 40 MG/4 ML VIAL IV SCH (09:00)
[2019-05-06] MEDS ORDERED: CALCIUM 600MG + VIT D 400 IU TAB PO SCH (09:00)
--- NOTE | 2019-05-06 10:31 | Cardiology Consultation ---
Date of Consultation May 06, 2019 Assessment & Plan (1) Chronic diastolic (congestive) heart failure: She carries a history of chronic diastolic CHF for which she is maintained on PO Lasix 80 mg in the morning and 40 mg in the afternoon on an outpatient basis. She takes an additional 40 mg PRN. She currently appears well compensated and euvolemic from a CHF standpoint. Her CXR showed no evidence of pulmonary vascular congestion and pro-BNP was within normal limits at 206. She denies any significant change in weight recently. Recommend discontinuing IV Lasix and resuming her usual PO diuretic therapy. Recommend low sodium diet, <2,000 mg daily and daily weights. She did undergo an echocardiogram this morning, and the official report is pending. (2) Substernal chest pain: She noted shortness of breath and a squeezing sensation in her chest after her fall last evening. Her symptoms lasted about 2 hours in duration before self-resolving. Her cardiac enzymes have been negative and ECG shows no acute ischemic changes. Her symptoms therefore do no appear cardiac in nature. Echocardiogram is pending. Otherwise, no additional cardiovascular testing/intervention recommended at this time. History of Present Illness Reason for Consultation: CHF Requesting Physician: Dr. Cummings History of Present Illness Ms. Braswell is a pleasant 68-year-old woman with a complex past medical history including asthma/bronchiectasis, chronic fungal sinus infection, history of MRSA, longstanding GI issues status post multiple prior surgeries and prior feeding tube, anemia, hyperlipidemia, hypertension, sleep apnea (on BIPAP), ankylosing spondylitis, and chronic diastolic heart failure who was admitted last evening after a fall at home. She was felt to possibly be in congestive heart failure, and this consultation was requested for management of her CHF. The patient states that last evening, she was ambulating in her home and sustained a mechanical fall after tripping on her ottoman. She denies loss of consciousness or symptoms leading up to the fall. She sustained a laceration to her left lower extremity, and she reports that after she fell, she noted shortness of breath and substernal chest discomfort described as a "squeezing" sensation. She denies any radiation of the pain. Her shortness of breath and chest discomfort lasted about 2 hours in duration before self-resolving. She herself feels as though the shortness of breath and chest discomfort symptoms were related to her "nerves" after the fall. She denies any recurrence of the symptoms since her hospitalization. She reports that she was feeling well prior to her fall. She notes shortness of breath with ambulating up hill to get to her apartment, especially in the hot/humid weather. She attributes the shortness of breath to her asthma, and her breathing does improve with the use of her inhaler. She denies shortness of breath symptoms when ambulating on ground level. She denies orthopnea. She reports that she noted increased lower extremity edema a couple of weeks ago and therefore increased her Lasix from 80 mg in the morning and 40 mg for a few days with resolution of the edema. She denies any significant lower extremity edema currently. She states that she put on some weight over the winter months due to increased caloric intake. More recently, her weight has remained rather stable at 194 +/- 2 lbs according to her home scales. She denies abnormal bleeding such as melena, hematochezia, or hematuria. She denies cerebrovascular symptoms. As noted in HPI. All other 10 point ROS are reviewed and otherwise negative at this time. Allergies Allergy/AdvReac Type Severity Reaction Status Date / Time Penicillins Allergy Intermediate RASH ALL Verified 05/05/19 21:42 OVER UPPER BODY NO RESP SYMPTOMS piperacillin Allergy Intermediate RASH Verified 05/05/19 21:42 Sulfa (Sulfonamide Allergy Intermediate Generalized Verified 05/05/19 21:42 Antibiotics) Rash tazobactam Allergy Intermediate RASH ALL Verified 05/05/19 21:42 OVER UPPER BODY NO RESP SYMPTOMS bupropion Allergy Mild NERVOUS Verified 05/05/19 21:42 REACTION Cephalosporins Allergy Mild RASH, Verified 05/05/19 21:42 DIARRHEA levofloxacin Allergy Mild RASH,TURNED Verified 05/05/19 21:42 RED prochlorperazine Allergy Mild NERVOUS Verified 05/05/19 21:42 REACTION promethazine Allergy Mild UNKNOWN Verified 05/05/19 21:42 tobramycin Allergy Mild UNKNOWN Verified 05/05/19 21:42 bethanechol Allergy Unknown RASH, Verified 05/05/19 21:42 "FEELS FUNNY" clindamycin Allergy Unknown Unknown Verified 05/05/19 21:42 dipyridamole Allergy Unknown UNKNOWN Verified 05/05/19 21:42 droperidol Allergy Unknown Unknown Verified 05/05/19 21:42 morphine Allergy Unknown NERVOUS Verified 05/05/19 21:42 REACTION TO IT aspirin AdvReac Severe BLEEDING Verified 05/05/19 21:42 tedizolid AdvReac Severe GI SYMPTOMS Verified 05/05/19 21:42 ertapenem AdvReac Intermediate RASH Verified 05/05/19 21:42 cephalexin AdvReac Mild GI SYMPTOMS Verified 05/05/19 21:42 Home Medications Home Medications Medication Instructions Recorded Confirmed Type albuterol sulfate 90 mcg/actuation 2 puffs INH Q4H PRN 06/17/18 05/05/19 History breath activated powder inhaler colesevelam 625 mg tablet 625 mg PO TID tab 06/17/18 05/05/19 History cyclobenzaprine 5 mg tablet 5 mg PO HS PRN 06/17/18 05/05/19 History desipramine 50 mg tablet 150 mg PO QAM tab 06/17/18 05/05/19 History escitalopram 20 mg tablet 20 mg PO QAM tab 06/17/18 05/05/19 History furosemide 40 mg tablet 40 mg PO QAM 06/17/18 05/05/19 History lorazepam 0.5 mg tablet 0.5 mg PO TID tab 06/17/18 05/05/19 History montelukast 10 mg tablet 10 mg PO HS 06/17/18 05/05/19 History omeprazole magnesium 20 mg 20 mg PO AMHS 06/17/18 05/05/19 History tablet,delayed release potassium chloride ER 20 mEq 20 meq PO QAM 06/17/18 05/05/19 History tablet,extended release(part/cryst) pregabalin 150 mg capsule 150 mg PO BID 06/17/18 05/05/19 History risperidone 3 mg tablet 3 mg PO HS tab 06/17/18 05/05/19 History metoprolol tartrate 25 mg PO QAM 11/20/18 05/05/19 History Lactobacillus acidoph-L.bulgar 1 tab PO TID 05/05/19 05/05/19 History [Floranex] ampicillin 500 mg PO HS 05/05/19 05/05/19 History calcium carbonate-vitamin D3 1 tab PO DAILY 05/05/19 05/05/19 History [Calcium 600 + D(3)] cholecalciferol (vitamin D3) 2,000 unit PO QDD 05/05/19 05/05/19 History [Vitamin D3] desipramine 100 mg PO HS 05/05/19 05/05/19 History diclofenac sodium 2 g TOPICAL DIRECTED 05/05/19 05/05/19 History ipratropium-albuterol 3 ml INHALATION Q4H PRN 05/05/19 05/05/19 History cdoifh-okuuhfja-ufrkuzl [Creon] 4 cap PO TID 05/05/19 05/05/19 History mirabegron [Myrbetriq] 50 mg PO DAILY 05/05/19 05/05/19 History jfcirvhx-xwu-cmui-FA-lutein 1 tab PO DAILY 05/05/19 05/05/19 History [Centrum Silver Women] mupirocin 1 applic TOPICAL BID 05/05/19 05/05/19 History ondansetron HCl [Zofran] 4 mg PO TID PRN 05/05/19 05/05/19 History pyridoxine (vitamin B6) [Vitamin 100 mg PO BID 05/05/19 05/05/19 History B-6] umeclidinium [Incruse Ellipta] 1 inh INHALATION DAILY 05/05/19 05/05/19 History Patient History Social History Preferred Language: [place] Communication Ability: Effective [employer] Counter Associate Required: No Beliefs That Will Affect Care: None Current Living Situation: Alone Other Information That Helps Us Care for You: No Feels Safe at Home: Yes Safety Concerns: Feels Safe At This Time Smoking Status: Never smoker Hx Alcohol Use: Yes Alcohol type: hard liquor Hx Substance Use: No Physical Exam Physical Exam: Constitutional: Alert, oriented, in no acute distress HEENT: Head is atraumatic and normocephalic. EOMs intact. Sclera non-icteric. Face is symmetric. No perioral cyanosis. Mucous membranes moist Neck: Supple, no JVD Pulmonary: Normal respiratory effort, clear to auscultation throughout Cardiac: Regular rate and rhythm, normal S1 and S2, no gallops, no rubs, grade 1/6 basal systolic murmur Extremities: Left lower extremity wound is covered with a bandage. No pitting edema of lower extremities. No clubbing or cyanosis. Pulses intact Abdomen: Normal bowel sounds, soft, non-tender, no abdominal masses palpated Skin: Normal skin color, turgor, and pigmentation. No rash Neurological: Oriented to person, place, and time Results & Data Vital Signs (Past 12 Hours) Vital Signs Temp Pulse Pulse Resp BP BP BP 05/06/19 07:12 36.3 C L 67 21 128/84 05/06/19 03:13 36.3 C L 64 20 119/68 05/06/19 01:34 36.5 C 65 18 141/98 H 05/06/19 01:21 05/06/19 01:09 64 18 122/69 Pulse Ox Pulse Ox 05/06/19 07:12 95 05/06/19 03:13 98 05/06/19 01:34 97 05/06/19 01:21 96 05/06/19 01:09 95 Laboratory Results Laboratory Results WBC 5.40 K/uL (4.8-10.8) 05/06/19 04:56 RBC 4.24 M/uL (4.2-5.4) 05/06/19 04:56 Hgb 11.6 g/dL (12.0-16.0) L 05/06/19 04:56 Hct 35.0 % (37-47) L 05/06/19 04:56 MCV 82.5 fL (80-100) 05/06/19 04:56 MCH 27.4 pg (25-34) 05/06/19 04:56 MCHC 33.1 g/dL (32-36) 05/06/19 04:56 RDW Std Deviation 42.9 fL (36.4-46.3) 05/06/19 04:56 RDW Coeff of David 14.3 % (11.5-14.5) 05/06/19 04:56 Plt Count 245 K/uL (130-400) 05/06/19 04:56 MPV 9.2 fL (7.4-10.4) 05/06/19 04:56 Immature Gran % (Auto) 0.6 % 05/06/19 04:56 Neut % (Auto) 58.4 % 05/06/19 04:56 Lymph % (Auto) 29.4 % 05/06/19 04:56 [place] % (Auto) 8.0 % 05/06/19 04:56 Eos % (Auto) 3.0 % 05/06/19 04:56 Baso % (Auto) 0.6 % 05/06/19 04:56 Reticulocyte % (Auto) 1.7 % (0.5-2.0) 05/06/19 04:56 Immature Gran # (Auto) 0.03 K/uL (0.00-0.02) H 05/06/19 04:56 Neut # (Auto) 3.16 K/uL (1.4-6.5) 05/06/19 04:56 Lymph # (Auto) 1.59 K/uL (1.2-3.4) 05/06/19 04:56 [place] # (Auto) 0.43 K/uL (0.11-0.59) 05/06/19 04:56 Eos # (Auto) 0.16 K/uL (0-0.5) 05/06/19 04:56 Baso # (Auto) 0.03 K/uL (0-0.2) 05/06/19 04:56 Reticulocyte # 0.07 10^6/uL (0.02-0.10) 05/06/19 04:56 APTT 29.3 Seconds (21.0-31.0) 05/06/19 04:56 PTT Ratio 1.1 05/06/19 04:56 Sodium 141 mmol/L (136-145) 05/06/19 04:56 Potassium 3.2 mmol/L (3.5-5.1) L 05/06/19 04:56 Chloride 106 mmol/L (98-107) 05/06/19 04:56 Carbon Dioxide 27 mmol/L (21-32) 05/06/19 04:56 Anion Gap 8.0 (3-11) 05/06/19 04:56 BUN 16 mg/dl (7-18) 05/06/19 04:56 Creatinine 0.63 mg/dl (0.6-1.2) 05/06/19 04:56 Est Cr Clr Drug Dosing 90.5 ml/min 05/06/19 04:56 Est GFR ( Amer) 108.3 05/06/19 04:56 Est GFR (Non-Af Amer) 93.5 05/06/19 04:56 BUN/Creatinine Ratio 25.5 (10-20) H 05/06/19 04:56 Glucose 95 mg/dl (70-99) 05/06/19 04:56 Calcium 8.3 mg/dl (8.5-10.1) L 05/06/19 04:56 Magnesium 1.8 mg/dl (1.8-2.4) 05/05/19 21:00 Iron 36 mcg/dl (35-150) 05/06/19 04:56 TIBC 449 mcg/dl (250-450) 05/06/19 04:56 Transferrin 353 mg/dl (200-360) 05/06/19 04:56 Ferritin 10.7 ng/ml (8-388) 05/06/19 04:56 Total Bilirubin 0.2 mg/dl (0.2-1) 05/05/19 21:00 AST 18 U/L (15-37) 05/05/19 21:00 ALT 20 U/L (12-78) 05/05/19 21:00 Alkaline Phosphatase 130 U/L (45-117) H 05/05/19 21:00 Troponin I < 0.015 ng/ml (0-0.045) 05/06/19 04:56 NT-Pro-B Natriuret Pep 206 pg/ml (0-900) 05/05/19 21:00 Total Protein 6.5 gm/dl (6.4-8.2) 05/05/19 21:00 Albumin 3.3 gm/dl (3.4-5.0) L 05/05/19 21:00 Globulin 3.2 gm/dl (2.5-4.0) 05/05/19 21:00 Albumin/Globulin Ratio 1.0 (0.9-2) 05/05/19 21:00 Triglycerides 106 mg/dl (0-150) 05/06/19 04:56 Cholesterol 186 mg/dl (0-200) 05/06/19 04:56 LDL Cholesterol, Calc 100 mg/dl 05/06/19 04:56 VLDL Cholesterol, Calc 21 mg/dl 05/06/19 04:56 HDL Cholesterol 65 mg/dl 05/06/19 04:56 Cholesterol/HDL Ratio 3 05/06/19 04:56 Lipase 149 U/L (73-393) 05/05/19 21:00 Vitamin B12 509 pg/ml (211-911) 05/06/19 04:56 Folate 3.59 ng/ml (>5.38) L 05/06/19 04:56 TSH 2.970 uIu/ml (0.300-4.500) 05/05/19 21:00 Diagnostic Findings CXR: Cardiomegaly with chronic interstitial coarsening. ECGs reviewed and show sinus rhythm with voltage criteria for LVH and nonspecific T-wave abnormality. Unchanged from prior. PG Care Time/CCT Total # of Minutes Spent Total Time Spent with Patient: Total time spent is greater than 50% in coordination of care (as documented) at patient's floor/unit and/or counseling patient: 60 minutes
[2019-05-06] MEDS ORDERED: POTASSIUM CHLORIDE 10 MEQ TABCR PO STA (14:37)
--- NOTE | 2019-05-06 15:07 | Hospitalist Progress Note ---
Date of Service May 06, 2019 Assessment & Plan (1) Chest pain: Chest pain, acute coronary syndrome ruled out In the setting of mechanical fall Troponins negative x3 EKG no signs of acute ischemia Echo: Normal LV size, borderline concentric LVH EF 65 to 70%, no regional wall motion Normal RV size and function Mild aortic regurgitation Compared with prior study on 06/28/2016: No significant changes Cardiology service consulted, chest pain not felt to be cardiac in etiology Further interventions recommended Left lower leg laceration, status post mechanical fall Patient reports tripping in her ottoman Status post suturing of the laceration at the ER Wound care service consulted, recommend OPTi foam every 3 days Follow-up with primary care physician, remove sutures in 1 week Chronic diastolic congestive heart failure There was a concern for possible CHF exacerbation on admission Patient given IV Lasix However, BNP normal Evaluated by cardiology service, felt to be euvolemic during evaluation, recommend recent changes with her Lasix dosing change Lasix 80 mg p.o. in the morning and 40 mg in the afternoon. Follow-up with cardiology clinic as scheduled Home health services arranged for the patient Anemia Hemoglobin 11.6 admitted Upon review, hemoglobin 11.7 back in November 2018 Monitor as an outpatient hypertension, stable asthma, currently stable history of gastric bypass ankylosing spondylitis as per records mood/anxiety disorder, at baseline Disposition Discharge to home with home with services Follow-up with primary care physician on Thursday as outlined in discharge instructions Follow-up with cardiology clinic as scheduled Subjective Follow-up for chest pain, status post mechanical fall Seen resting in bed, comfortable, not in distress Denies recurrence of chest pain, no shortness of breath, palpitations, dizzine ss, nausea Denies abdominal pain Mild discomfort on the lower leg, suture site No other symptoms Reevaluates in the afternoon Patient remained comfortable States she feels much better overall States she is ready and would like to be discharged today Review of Systems Review of Systems: All systems reviewed & are unremarkable except as noted in HPI & below Physical Exam Physical Exam: General- oriented x 3, not in distress, speaks in sentences w ith no effort or accessory muscle use Head- atraumatic Eyes- PERRL, EOMI, anicteric ENT- oropharynx clear Neck- supple, no JVD, no adenopathy, no thyromegaly; carotids +2/2, no bruits appreciated Lungs- clear to auscultation bilaterally, no rales/wheezes Heart- normal rate, regular rhythm; no murmur, no gallop, no rub appreciated Abdomen- normal bowel sounds, nondistended, soft, nontender, no masses or hepatosplenomegaly Extremities- no pretibial edema, no calf tenderness; peripheral pulses intact Positive laceration left lower leg, anterior region, sutures in place, no discharge of bleeding, no surrounding erythema/hematoma/warmth/tenderness Neuro- alert, oriented x 3; CN 2-12 grossly intact; motor 5/5 bilaterally;sensation 100% on all extremities; no other gross focal neurologic deficits Skin- warm & dry Results & Data Vital Signs (Past 12 Hours) Vital Signs Temp Pulse Resp BP Pulse Ox 05/06/19 12:22 36.4 C L 57 L 16 116/74 100 05/06/19 07:12 36.3 C L 67 21 128/84 95 05/06/19 03:13 36.3 C L 64 20 119/68 98 Laboratory Results Laboratory Results - last 24 hr 05/05/19 05/05/19 05/05/19 21:00 21:00 21:00 WBC 6.28 RBC 4.29 Hgb 11.7 L Hct 35.3 L MCV 82.3 MCH 27.3 MCHC 33.1 RDW Std Deviation 43.0 RDW Coeff of David 14.3 Plt Count 253 MPV 9.2 Immature Gran % (Auto) 0.6 Neut % (Auto) 57.1 Lymph % (Auto) 28.8 [place] % (Auto) 10.4 Eos % (Auto) 2.5 Baso % (Auto) 0.6 Reticulocyte % (Auto) Immature Gran # (Auto) 0.04 H Neut # (Auto) 3.58 Lymph # (Auto) 1.81 [place] # (Auto) 0.65 H Eos # (Auto) 0.16 Baso # (Auto) 0.04 Reticulocyte # APTT 29.1 PTT Ratio 1.1 Sodium 137 Potassium 3.3 L Chloride 104 Carbon Dioxide 27 Anion Gap 6.0 BUN 17 Creatinine 0.75 Est Cr Clr Drug Dosing 79.7 Est GFR ( Amer) 96.3 Est GFR (Non-Af Amer) 83.1 BUN/Creatinine Ratio 22.4 H Glucose 106 H Calcium 7.9 L Magnesium 1.8 Iron TIBC Transferrin Ferritin Total Bilirubin 0.2 AST 18 ALT 20 Alkaline Phosphatase 130 H Troponin I < 0.015 NT-Pro-B Natriuret Pep 206 Total Protein 6.5 Albumin 3.3 L Globulin 3.2 Albumin/Globulin Ratio 1.0 Triglycerides Cholesterol LDL Cholesterol, Calc VLDL Cholesterol, Calc HDL Cholesterol Cholesterol/HDL Ratio Lipase 149 Vitamin B12 Folate TSH 2.970 05/06/19 05/06/19 05/06/19 04:56 04:56 04:56 WBC 5.40 RBC 4.24 Hgb 11.6 L Hct 35.0 L MCV 82.5 MCH 27.4 MCHC 33.1 RDW Std Deviation 42.9 RDW Coeff of David 14.3 Plt Count 245 MPV 9.2 Immature Gran % (Auto) 0.6 Neut % (Auto) 58.4 Lymph % (Auto) 29.4 [place] % (Auto) 8.0 Eos % (Auto) 3.0 Baso % (Auto) 0.6 Reticulocyte % (Auto) 1.7 Immature Gran # (Auto) 0.03 H Neut # (Auto) 3.16 Lymph # (Auto) 1.59 [place] # (Auto) 0.43 Eos # (Auto) 0.16 Baso # (Auto) 0.03 Reticulocyte # 0.07 APTT 29.3 PTT Ratio 1.1 Sodium 141 Potassium 3.2 L Chloride 106 Carbon Dioxide 27 Anion Gap 8.0 BUN 16 Creatinine 0.63 Est Cr Clr Drug Dosing 90.5 Est GFR ( Amer) 108.3 Est GFR (Non-Af Amer) 93.5 BUN/Creatinine Ratio 25.5 H Glucose 95 Calcium 8.3 L Magnesium Iron 36 TIBC 449 Transferrin 353 Ferritin 10.7 Total Bilirubin AST ALT Alkaline Phosphatase Troponin I NT-Pro-B Natriuret Pep Total Protein Albumin Globulin Albumin/Globulin Ratio Triglycerides 106 Cholesterol 186 LDL Cholesterol, Calc 100 VLDL Cholesterol, Calc 21 HDL Cholesterol 65 Cholesterol/HDL Ratio 3 Lipase Vitamin B12 Folate TSH 05/06/19 05/06/19 05/06/19 04:56 04:56 04:56 WBC RBC Hgb Hct MCV MCH MCHC RDW Std Deviation RDW Coeff of David Plt Count MPV Immature Gran % (Auto) Neut % (Auto) Lymph % (Auto) [place] % (Auto) Eos % (Auto) Baso % (Auto) Reticulocyte % (Auto) Immature Gran # (Auto) Neut # (Auto) Lymph # (Auto) [place] # (Auto) Eos # (Auto) Baso # (Auto) Reticulocyte # APTT PTT Ratio Sodium Potassium Chloride Carbon Dioxide Anion Gap BUN Creatinine Est Cr Clr Drug Dosing Est GFR ( Amer) Est GFR (Non-Af Amer) BUN/Creatinine Ratio Glucose Calcium Magnesium Iron TIBC Transferrin Ferritin Total Bilirubin AST ALT Alkaline Phosphatase Troponin I < 0.015 NT-Pro-B Natriuret Pep Total Protein Albumin Globulin Albumin/Globulin Ratio Triglycerides Cholesterol LDL Cholesterol, Calc VLDL Cholesterol, Calc HDL Cholesterol Cholesterol/HDL Ratio Lipase Vitamin B12 509 Folate 3.59 L TSH
--- NOTE | 2019-05-06 15:12 | Discharge Summary ---
Date of Service May 06, 2019 Admission HPI Per Admitting Provider History obtained from patient and records. Medical history significant for chronic diastolic heart failure (EF 55 to 60%, TTE 2016), hypertension, LARRY on BIPAP, asthma, history of gastric bypass, hyperparathyroidism as per records, ankylosing spondylitis as per records, mood/anxiety disorder, history MRSA. Recent confinement December 2017 under Orthopedics service for left wrist fracture sp surgery. Patient seen at PCPs office about 2 weeks ago for increased shortness of breath on exertion, bilateral leg swelling for about 3 to 4 days without chest pain, some weight gain despite compliance with home diuretic Rx. Denies dietary indiscretion, claims to be compliant with home BiPAP. Outpatient BNP noted to be elevated. Outpatient hemoglobin noted to be 11. Increase diuretic Rx for 3 days then back to usual dosing for possible CHF as per records. Improved symptoms as per patient. Last night, patient tripped over some home furniture leading to a mechanical fall. Left leg wound sustained after patient landed on the ground. No head trauma. Patient noted squeezing substernal pain, S OB after episode. No unusual cough symptoms, no fever, no chills. Denies abdominal pain, black/bloody stools. Spontaneous resolution of chest discomfort at the emergency room. Left lower leg wound repaired at the ER. Medical History as above 2016 EGD disclosed esophageal stenosis, gastric bypass 2016 colonoscopy disclosed internal hemorrhoids. 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 Admission Exam Per Admitting Provider GENERAL: Comfortable, slightly anxious, obese, no respiratory distress SKIN: Normal color, warm HEENT: Bespectacled, pink palpebral conjunctivae, no ptosis, dry buccal mucosa NECK : Supple, short, no tenderness CHEST : Decreased breath sounds, no tenderness HEART : RRR, systolic murmur ABDOMEN: Some distention, nontender EXTREMITIES : Bilateral LE swelling, no RLE tenderness, dressing over LLE NEUROLOGIC : Coherent, no facial asymmetry, no other gross focality Principal Diagnosis Chest pain, left lower leg laceration, status post mechanical fall Discharge Exam General- oriented x 3, not in distress, speaks in sentences with no effort or accessory muscle use Head- atraumatic Eyes- PERRL, EOMI, anicteric ENT- oropharynx clear Neck- supple, no JVD, no adenopathy, no thyromegaly; carotids +2/2, no bruits appreciated Lungs- clear to auscultation bilaterally, no rales/wheezes Heart- normal rate, regular rhythm; no murmur, no gallop, no rub appreciated Abdomen- normal bowel sounds, nondistended, soft, nontender, no masses or hepatosplenomegaly Extremities- no pretibial edema, no calf tenderness; peripheral pulses intact Positive laceration left lower leg, anterior region, sutures in place, no discharge of bleeding, no surrounding erythema/hematoma/warmth/tenderness Neuro- alert, oriented x 3; CN 2-12 grossly intact; motor 5/5 bilaterally;sensation 100% on all extremities; no other gross focal neurologic deficits Skin- warm & dry Discharge Data Allergies Allergy/AdvReac Type Severity Reaction Status Date / Time Penicillins Allergy Intermediate RASH ALL Verified 05/05/19 21:42 OVER UPPER BODY NO RESP SYMPTOMS piperacillin Allergy Intermediate RASH Verified 05/05/19 21:42 Sulfa (Sulfonamide Allergy Intermediate Generalized Verified 05/05/19 21:42 Antibiotics) Rash tazobactam Allergy Intermediate RASH ALL Verified 05/05/19 21:42 OVER UPPER BODY NO RESP SYMPTOMS bupropion Allergy Mild NERVOUS Verified 05/05/19 21:42 REACTION Cephalosporins Allergy Mild RASH, Verified 05/05/19 21:42 DIARRHEA levofloxacin Allergy Mild RASH,TURNED Verified 05/05/19 21:42 RED prochlorperazine Allergy Mild NERVOUS Verified 05/05/19 21:42 REACTION promethazine Allergy Mild UNKNOWN Verified 05/05/19 21:42 tobramycin Allergy Mild UNKNOWN Verified 05/05/19 21:42 bethanechol Allergy Unknown RASH, Verified 05/05/19 21:42 "FEELS FUNNY" clindamycin Allergy Unknown Unknown Verified 05/05/19 21:42 dipyridamole Allergy Unknown UNKNOWN Verified 05/05/19 21:42 droperidol Allergy Unknown Unknown Verified 05/05/19 21:42 morphine Allergy Unknown NERVOUS Verified 05/05/19 21:42 REACTION TO IT aspirin AdvReac Severe BLEEDING Verified 05/05/19 21:42 tedizolid AdvReac Severe GI SYMPTOMS Verified 05/05/19 21:42 ertapenem AdvReac Intermediate RASH Verified 05/05/19 21:42 cephalexin AdvReac Mild GI SYMPTOMS Verified 05/05/19 21:42 Consultations 05/05/19 23:31 ED Decision to Admit Stat 05/06/19 01:21 Consult Cardiology Routine Hospital Course (1) Chest pain: CHEST PAIN, ACUTE CORONARY SYNDROME RULED OUT In the setting of mechanical fall Troponins negative x3 EKG no signs of acute ischemia Echo: Normal LV size, borderline concentric LVH EF 65 to 70%, no regional wall motion Normal RV size and function Mild aortic regurgitation Compared with prior study on 06/28/2016: No significant changes Cardiology service consulted, chest pain not felt to be cardiac in etiology No further interventions recommended LEFT LOWER LEG LACERATION, STATUS POST MECHANICAL FALL Patient reports tripping in her ottoman Status post suturing of the laceration at the ER Wound care service consulted, recommend OPTi foam every 3 days Follow-up with primary care physician, remove sutures in 1 week CHRONIC DIASTOLIC CONGESTIVE HEART FAILURE There was a concern for possible CHF exacerbation on admission Patient given IV Lasix However, BNP normal Evaluated by cardiology service, felt to be euvolemic during evaluation, recommend recent changes with her Lasix dosing change Lasix 80 mg p.o. in the morning and 40 mg in the afternoon. Follow-up with cardiology clinic as scheduled Home health services arranged for the patient ANEMIA Hemoglobin 11.6 admitted Upon review, hemoglobin 11.7 back in November 2018 Monitor as an outpatient hypertension, stable asthma, currently stable history of gastric bypass ankylosing spondylitis as per records mood/anxiety disorder, at baseline Disposition Discharge to home with home with services Follow-up with primary care physician on Thursday as outlined in discharge instructions Follow-up with cardiology clinic as scheduled Total Time Total Time Spent Total Time Spent (In Minutes): 55 minutes Discharge Plan Discharge Items Patient Disposition: Home - Self-Care Reason For Visit: CHF Discharge Diagnosis: STATUS POST MECHANICAL FALL, LEFT LOWER LEG LACERATION, CHEST PAIN Discharge Goals: Diagnostic testing and Therapeutic intervention Activity: As commented below Activity Comment: Resume activity gradually, always be careful when ambulating, always use assistive device Lifting: Wait until after follow-up appointment Bathing Comment: No bathing Exercise/Sports: Wait until after follow-up appointment Driving/Machine Use Comment: No driving until reevaluated by primary care physician Non-emergency contact: Primary Care Provider Call non-emergency contact if: you have any medication questions, your symptoms worsen, your pain is not controlled, your pain is worsening and you have a fever Follow-up/Referrals: Frederick Reynaga DO [Primary Care Provider] - 05/09/19 12:45 pm Diet: Heart Healthy Addtl Provider Instructions: Cover laceration of the left lower leg with large OPTi foam. Change every 3 days and as needed for drainage. Keep wound dry until tomorrow. You may take a shower on Wednesday, May 08, 2019. Call primary care physician or return to the ER immediately if with worsening symptoms, increasing redness, pain, warmth, drainage or bleeding from the laceration site, fevers or chills, increasing leg swelling, shortness of breath. Follow-up with primary care physician as outlined above. Follow-up with hat sprayer as scheduled. Call 911 and go to the Emergency Room if: * You have tightness or pain in your chest that does not go away with rest or Nitroglycerin * You are very short of breath even with rest Call your doctor if any of the following symptoms or problems start or get worse: * Shortness of breath or difficulty breathing * Wake up at night short of breath * Chest pain * Cough * Swelling of your hands, fee, or legs * More fatigued or tired with your normal activity * Palpitations - sudden fast heart beats WEIGHT * Weigh yourself every morning after using the bathroom. * Use the same scale. * Wear the same amount of clothing. * Write your weight down on your chart. * Call your doctor if you gain more than 2-3 pounds in 1-2 days. MEDICATIONS * Use this discharge instruction sheet for instructions. * Take your medications at the time your doctor ordered. * Do not skip a dose of your medicines. * If you miss a dose of medicine, take as soon as possible, but DO NOT DOUBLE A DOSE. * Read your medicine information when you get home. * Know all of the side effects of your medicine. * Call your doctor's office if you have any side effects. * Be sure all of your doctors know what medicine and herbs you take (including cold, flu, and herbal medicine). * Pain Medicine: If you do not get relief from your pain, please call your doctor for help. Take the following with you to your follow-up doctor appointments: * Weight Chart * Medication List * List of questions Do not drink excessive alcohol, beer or wine. Prescriptions: New furosemide 40 mg Tablet 40 mg PO DAILY@1700 30 Days Qty: 30 RF: 0 furosemide 80 mg Tablet 80 mg PO QAM 30 Days Qty: 30 RF: 0 Continued risperidone 3 mg tablet 3 mg PO HS RF: 0 lorazepam [Ativan] 0.5 mg tablet 0.5 mg PO TID RF: 0 desipramine 50 mg tablet 150 mg PO QAM RF: 0 colesevelam 625 mg tablet 625 mg PO TID RF: 0 montelukast [Singulair] 10 mg tablet 10 mg PO HS RF: 0 escitalopram oxalate [Lexapro] 20 mg tablet 20 mg PO QAM RF: 0 cyclobenzaprine 5 mg tablet 5 mg PO HS PRN (Reason: Headache) RF: 0 omeprazole magnesium [Prilosec OTC] 20 mg tablet,delayed release (DR/EC) 20 mg PO AMHS RF: 0 albuterol sulfate 90 mcg/actuation aerosol powdr breath activated 2 puffs INH Q4H PRN (Reason: Shortness Of Breath Or Wheezing) RF: 0 ipratropium-albuterol 0.5 mg-3 mg(2.5 mg base)/3 mL Solution For Nebulization 3 ml INHALATION Q4H PRN (Reason: Shortness Of Breath Or Wheezing) RF: 0 ondansetron HCl [Zofran] 4 mg Tablet 4 mg PO TID PRN (Reason: Nausea And Vomiting) RF: 0 desipramine 50 mg Tablet 100 mg PO HS RF: 0 mupirocin 2 % Ointment 1 applic TOPICAL BID RF: 0 pyridoxine (vitamin B6) [Vitamin B-6] 100 mg Tablet 100 mg PO BID RF: 0 calcium carbonate-vitamin D3 [Calcium 600 + D(3)] 600 mg(1,500mg) -400 unit Tablet 1 tab PO DAILY RF: 0 diclofenac sodium 1 % Gel 2 g TOPICAL DIRECTED RF: 0 cholecalciferol (vitamin D3) [Vitamin D3] 2,000 unit Capsule 2,000 unit PO QDD RF: 0 Creon 24,000-76,000 -120,000 unit Capsule,Delayed Release(Dr/Ec) 4 cap PO TID RF: 0 Lactobacillus acidoph-L.bulgar [Floranex] 1 million cell Tablet 1 tab PO TID RF: 0 Centrum Silver Women 8 mg iron-400 mcg-300 mcg Tablet 1 tab PO DAILY RF: 0 Myrbetriq 50 mg Tablet Extended Release 24 Hr 50 mg PO DAILY RF: 0 Incruse Ellipta 62.5 mcg/actuation Blister With Device 1 inh INHALATION DAILY RF: 0 Changed potassium chloride [Klor-Con M20] 20 mEq tablet,ER particles/crystals 40 meq PO QAM Qty: 0 RF: 0 metoprolol tartrate 25 mg tablet 12.5 mg PO BID Qty: 0 RF: 0 pregabalin [Lyrica] 150 mg capsule 200 mg PO BID Qty: 0 RF: 0 Discontinued furosemide [Lasix] 40 mg tablet 40 mg PO QAM RF: 0 ampicillin 500 mg Capsule 500 mg PO HS RF: 0 Stand-Alone Forms: [facility] Discharge Orders: Discharge Order (Routine); Ordered 05/06/19 Ordered By: Pastor Smith Admission Data Admit Date/Time: 05/06/19 00:17 Attending Provider: Pastor Smith Admit Provider: Austin Cummings Primary Care Provider: Frederick Reynaga Other Providers: Austin Cummings ; Meng Otoole Service: Telemetry
[2019-05-06] MEDS ORDERED: HEPARIN 100 UNIT/ML 5ML FLUSH ONE (15:17)
[2019-05-06] MEDS ORDERED: CHOLECALCIFEROL 1,000 UNITS TAB PO SCH (16:30)
[2019-05-06] MEDS ORDERED: FUROSEMIDE 40 MG TAB PO SCH (17:00)
[2019-05-06] MEDS ORDERED: MONTELUKAST SODIUM 10 MG TABLET PO SCH (21:00)
[2019-05-07] MEDS ORDERED: FUROSEMIDE 80 MG TAB PO SCH (09:00)
--- NOTE | 2019-05-23 09:58 | Coding Query ---
CODING QUERY To promote full compliance with coding requirements relating to patient care, provider participation is requested in all cases of lay out inspector uncertainty. Please assist us with the question(s) below: Coding Question(s): Please clarify if the CHF exacerbation was ruled out. Physician's Response(s): CHF exacerbation ruled out Thank you Milly Schmidt Principal Diagnosis: "that condition established after study, to be chiefly responsible for occasioning the admission of the patient to the hospital for care." Co-Existing Principal Diagnosis: "when two or more diagnoses equally meet the criteria for principal diagnosis as determined by the circumstances of admission, diagnostic work up, and/or therapy provided, and the Alphabetic Index, Tabular List, or another coding guideline does not provide sequencing direction, any one of the diagnoses may be sequenced first." "When the physician has documented what appears to be a current diagnosis in the body of the record, but has not included the diagnosis in the final diagnostic statement, the physician should be asked whether the diagnosis should be added." (Source Coding [facility] 2 QTR90. p3-4) ALEXANDR
== END 2019-05-06 15:30 | disposition home or self-care (01) | DRG 313 ==
LOC: ED 20:22 → 2E 05-06 00:17

== ENCOUNTER 2020-04-19 12:41 | Inpatient (IN) ==
--- NOTE | 2020-04-19 13:10 | Emergency Department Note ---
Impression & Plan Weakness, Fall, Acute UTI ED Provider Note NAME: JOSHUA ZAVALA AGE: 69 SEX: F : 1950 ARRIVES VIA: Ambulance INFORMANT: Patient ED PROVIDER(S): Pavel Alarcon DO CHIEF COMPLAINT: Fall and weakness HPI: Patient is a [age]-year-old female with extensive past medical history of CHF, anemia, neuropathy and short bowel syndrome who presents the ER for mechan ical fall. She went to get up from bed and she fell backwards. She notes that she was very dizzy. She denies any complaints from the fall. She notes that she feels extremely weak. She has no focal weakness. She denies any headache, neck pain, chest pain, shortness of breath, nausea vomiting or diarrhea. No other exacerbating or remitting factors. Patient admits that yesterday she had her greatest saphenous operated on by Dr. Daniel Otoole for venous insufficiency. ROS: See above HPI for pertinent positives & negatives. A total of 10 systems reviewed and were otherwise negative. PAST MEDICAL HISTORY:See Below PAST SURGICAL HISTORY:See Below FAMILY HISTORY:See Below SOCIAL HISTORY:See Below HOME MEDICATIONS:See Below ALLERGIES:See Below VITALS:See Below PHYSICAL EXAMINATION: GENERAL: Sitting up in bed, alert, well appearing, well nourished, no distress, non-toxic HEAD: N/C/AT EYE EXAM: normal conjunctiva. OROPHARYNX: dry mucus membranes NECK: supple, no nuchal rigidity, no adenopathy, non-tender LUNGS: Clear to auscultation. Normal chest wall mechanics HEART: no murmurs, S1 normal and S2 normal ABDOMEN: abdomen soft, non-tender, normo-active bowel sounds, no masses, no rebound or guarding. BACK: Back is symmetrical on inspection and there is no deformity, no midline tenderness, no CVA tenderness. SKIN: no rashes and no bruising UPPER EXTREMITIES: upper extremities are grossly normal. LOWER EXTREMITIES: No pitting edema. NEURO EXAM: Normal sensorium, cranial nerves II-XII grossly intact, normal speech, no gross weakness of arms, no gross weakness of legs. MEDICAL DECISION MAKING: Patient is a 69-year-old female who presents here for a fall at home. Yesterday she had saphenous ablation. She notes she is been feeling extremely weak rundown today. IV was established blood work was obtained. Labs showed no significant leukocytosis or anemia. INR was unremarkable. BMP with mild hyponatremia and hypokalemia. LFTs bilirubin was unremarkable. Troponin was negative. UA with nitrites leukocytes and +2 bacteria. It was contaminated with epithelial cells. Will treat but based on allergies gave 2 g of Ancef. Do favor that this likely cause of amatory dysfunction. Patient was updated bedside. We attempted to walk her and she became significantly weak and almost collapsed as her legs became very weak. With this discussed with the hospitalist permission. CT of the head, chest x-ray are unremarkable. Patient was updated and discussed with hospitalist for observation. Triage Nursing notes reviewed. Prior medical records reviewed Vital Signs: reviewed and remarkable for no significant abnormalities Differential diagnosis: Differential diagnosis includes etiologies such as ectopic , dysfunction uterine bleeding, bleeding dyscrasia, trauma, infection, as well as others were entertained. ER treatment provided: See below Diagnostics interpreted by me: ECG: Sinus rhythm rate [address] wave changes in the high lateral leads Improvement/resolution T wave inversion in inferior and septal leads in comparison to old EKG on March 30 Cardiac Monitoring: An order was placed for continuous cardiac monitoring. The monitor shows a rate of 90 with sinus rhythm. Laboratory studies: As stated above and show below. Imaging studies: duplex of the lower extremity and chest x-ray was unremarkable. Consultation(s): none ED COURSE: Procedures: none Critical Care: None Past Med/Surg History Medical History Abscess of skin of left wrist Chronic diastolic (congestive) heart failure (Chronic) follows w/ Dr. Otoole Chronic sinusitis Deep vein thrombosis RLE - 15-20 years ago - immobility - treated w/ AC. Depression Enterocutaneous fistula (Inactive) History of jejunostomy tube placement History of kidney stones Morbid obesity MRSA (methicillin resistant staph aureus) culture positive Left wrist Osteoarthritis Pancreatic insufficiency Peripheral neuropathy Port-A-Cath in place PUD (peptic ulcer disease) PVC (premature ventricular contraction) (Inactive) Short bowel syndrome (Chronic) Urinary leakage Wrist fracture, left Surgical History History of appendectomy History of cardiac cath 2-3 months ago - [place] - no stents History of cholecystectomy History of colonoscopy (~2015) History of esophagogastroduodenoscopy (EGD) (~2016) History of gastrointestinal surgery multiple History of joint replacement Rt thumb History of knee replacement procedure of right knee History of lithotripsy History of open reduction and internal fixation (ORIF) procedure LUE History of partial gastrectomy History of sinus surgery History of tonsillectomy and adenoidectomy History of total abdominal hysterectomy and bilateral salpingo-oophorectomy Family History Mother Family history of diabetes mellitus Sister Family history of diabetes mellitus Father Esophageal cancer Other Family history non-contributory No family history of adverse response to anesthesia Social History Preferred Language: Kyrgyz Communication Ability: Effective 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: No Beliefs That Will Affect Care: None Current Living Situation: Alone Feels Safe at Home: Yes Smoking Status: Former smoker Second Hand Exposure: Yes (parents smoke) ; Hx Alcohol Use: No Hx Substance Use: No Allergies Allergies Allergy/AdvReac Type Severity Reaction Status Date / Time Penicillins Allergy Intermediate RASH ALL Verified 04/19/20 14:59 OVER UPPER BODY NO RESP SYMPTOMS piperacillin Allergy Intermediate RASH Verified 04/19/20 14:59 Sulfa (Sulfonamide Allergy Intermediate Generalized Verified 04/19/20 14:59 Antibiotics) Rash tazobactam Allergy Intermediate RASH ALL Verified 04/19/20 14:59 OVER UPPER BODY NO RESP SYMPTOMS bupropion Allergy Mild NERVOUS Verified 04/19/20 14:59 REACTION Cephalosporins Allergy Mild RASH, Verified 04/19/20 14:59 DIARRHEA levofloxacin Allergy Mild RASH,TURNED Verified 04/19/20 14:59 RED prochlorperazine Allergy Mild NERVOUS Verified 04/19/20 14:59 REACTION promethazine Allergy Mild UNKNOWN Verified 04/19/20 14:59 tobramycin Allergy Mild UNKNOWN Verified 04/19/20 14:59 bethanechol Allergy Unknown RASH, Verified 04/19/20 14:59 "FEELS FUNNY" clindamycin Allergy Unknown Unknown Verified 04/19/20 14:59 dipyridamole Allergy Unknown UNKNOWN Verified 04/19/20 14:59 droperidol Allergy Unknown Unknown Verified 04/19/20 14:59 morphine Allergy Unknown NERVOUS Verified 04/19/20 14:59 REACTION TO IT aspirin AdvReac Severe BLEEDING Verified 04/19/20 14:59 tedizolid AdvReac Severe GI SYMPTOMS Verified 04/19/20 14:59 ertapenem AdvReac Intermediate RASH Verified 04/19/20 14:59 cephalexin AdvReac Mild GI SYMPTOMS Verified 04/19/20 14:59 Home Meds Home Medications Medication Instructions Recorded Confirmed colesevelam 625 mg tablet 625 mg PO TID tab 06/17/18 04/19/20 desipramine 50 mg tablet 50 mg PO TIDM tab 06/17/18 04/19/20 escitalopram oxalate 20 mg tablet 20 mg PO QAM tab 06/17/18 04/19/20 lorazepam 0.5 mg tablet 0.5 mg PO TID PRN tab 06/17/18 04/19/20 montelukast 10 mg tablet 10 mg PO HS 06/17/18 04/19/20 risperidone 3 mg tablet 3 mg PO HS tab 06/17/18 04/19/20 Centrum Silver Women 1 tab PO DAILY 05/05/19 04/19/20 Creon 4 cap PO TID 05/05/19 04/19/20 Myrbetriq 50 mg PO QAM 05/05/19 04/19/20 cholecalciferol (vitamin D3) 2,000 unit PO QDD 05/05/19 04/19/20 [Vitamin D3] desipramine 100 mg PO HS 05/05/19 04/19/20 diclofenac sodium 2 g TOPICAL DIRECTED 05/05/19 04/19/20 ipratropium-albuterol 3 ml INHALATION Q4H PRN 05/05/19 04/19/20 mupirocin 1 applic TOPICAL BID PRN 05/05/19 04/19/20 pyridoxine (vitamin B6) [Vitamin 100 mg PO BID 05/05/19 04/19/20 B-6] metoprolol tartrate 25 mg tablet 12.5 mg PO BID tab 05/17/19 04/19/20 omeprazole magnesium 20 mg 20 mg PO BID tab 05/17/19 04/19/20 tablet,delayed release furosemide [Lasix] 80 mg PO BID 03/30/20 04/19/20 ibuprofen [Advil] 400 mg PO Q6H PRN 03/30/20 04/19/20 oxycodone-acetaminophen 1 tab PO Q6H PRN 04/19/20 04/19/20 potassium chloride [Klor-Con M20] 20 meq PO BID 04/19/20 04/19/20 Previous Rx's Medication Instructions Recorded albuterol sulfate 90 mcg/actuation 2 puffs INH Q4H PRN #1 ea 10/17/19 breath activated powder inhaler fluticasone fur. 100 mcg-umeclid 1 puffs INH QAM #60 ea 12/12/19 62.5 mcg-vilant 25 mcg inhalat.powder ropinirole 0.25 mg tablet 0.25 mg PO HS 30 Days #30 tab 03/06/20 Results & Data (ED) Vital Signs Vital Signs - 24 hr 04/19/20 12:45 04/19/20 12:46 04/19/20 13:01 Temperature 36.9 C Temperature Source Oral Pulse Rate 90 90 79 Pulse Rate [Right Finger] Pulse Rate from SpO2 Sensor 90 91 H Respiratory Rate 20 27 H 28 H Respiratory Effort / Characteristics Non-Labored Spontaneous Respiratory Depth Normal Blood Pressure 113/65 113/65 Blood Pressure Mean 81 81 85 Pulse Oximetry 97 97 98 Oxygen Delivery Method Room Air Sepsis Recent Fever Within 48 Hours No Sepsis New/Unexplained Change in Mental Status No Sepsis Action Taken by Nursing No Action Required 04/19/20 13:35 04/19/20 15:08 04/19/20 15:24 Temperature Temperature Source Pulse Rate 96 H 102 H 102 H Pulse Rate [Right Finger] Pulse Rate from SpO2 Sensor Respiratory Rate 23 20 28 H Respiratory Effort / Characteristics Respiratory Depth Blood Pressure 122/65 104/65 Blood Pressure Mean 85 75 Pulse Oximetry Oxygen Delivery Method Sepsis Recent Fever Within 48 Hours Sepsis New/Unexplained Change in Mental Status Sepsis Action Taken by Nursing 04/19/20 15:31 04/19/20 15:32 04/19/20 16:00 Temperature Temperature Source Pulse Rate 102 H 102 H 100 H Pulse Rate [Right Finger] Pulse Rate from SpO2 Sensor 104 H 101 H 101 H Respiratory Rate 33 H 23 28 H Respiratory Effort / Characteristics Respiratory Depth Blood Pressure 109/47 L 92/50 L Blood Pressure Mean 63 56 Pulse Oximetry 93 96 97 Oxygen Delivery Method Sepsis Recent Fever Within 48 Hours Sepsis New/Unexplained Change in Mental Status Sepsis Action Taken by Nursing 04/19/20 16:50 04/19/20 17:00 04/19/20 17:05 Temperature Temperature Source Pulse Rate 103 H 99 H Pulse Rate [Right Finger] 99 H Pulse Rate from SpO2 Sensor 104 H 98 H Respiratory Rate 28 H 31 H 18 Respiratory Effort / Characteristics Non-Labored Spontaneous Respiratory Depth Blood Pressure 100/71 99/41 L Blood Pressure Mean 83 53 Pulse Oximetry 92 97 96 Oxygen Delivery Method Room Air Room Air Sepsis Recent Fever Within 48 Hours Sepsis New/Unexplained Change in Mental Status Sepsis Action Taken by Nursing 04/19/20 17:30 04/19/20 17:48 Temperature Temperature Source Pulse Rate 96 H 95 H Pulse Rate [Right Finger] Pulse Rate from SpO2 Sensor 97 H 95 H Respiratory Rate 28 H 27 H Respiratory Effort / Characteristics Respiratory Depth Blood Pressure 107/52 L Blood Pressure Mean 79 Pulse Oximetry 97 95 Oxygen Delivery Method Sepsis Recent Fever Within 48 Hours Sepsis New/Unexplained Change in Mental Status Sepsis Action Taken by Nursing Laboratory Data Result diagrams: 04/19/20 13:30 04/19/20 13:30 Lab Results 04/19/20 04/19/20 04/19/20 Range/Units 13:30 13:30 13:30 WBC 11.71 H (4.8-10.8) K/uL RBC 4.43 (4.2-5.4) M/uL Hgb 11.2 L (12.0-16.0) g/dL Hct 33.1 L (37-47) % MCV 74.7 L (80-100) fL MCH 25.3 (25-34) pg MCHC 33.8 (32-36) g/dL RDW Std Deviation 45.2 (36.4-46.3) fL RDW Coeff of David 16.4 H (11.5-14.5) % Plt Count 169 (130-400) K/uL MPV 9.0 (7.4-10.4) fL Immature Gran % (Auto) 1.1 % Neut % (Auto) 90.2 % Lymph % (Auto) 4.6 % Real % (Auto) 3.4 % Eos % (Auto) 0.5 % Baso % (Auto) 0.2 % Neut # (Auto) 10.56 H (1.4-6.5) K/uL Lymph # (Auto) 0.54 L (1.2-3.4) K/uL Real # (Auto) 0.40 (0.11-0.59) K/uL Eos # (Auto) 0.06 (0-0.5) K/uL Baso # (Auto) 0.02 (0-0.2) K/uL Immature Gran # (Auto) 0.13 H (0.00-0.02) K/uL PT 11.7 (9.0-12.0) Seconds INR 1.1 (0.9-1.1) APTT (21.0-31.0) Seconds PTT Ratio D-Dimer (0-500) ug/L FEU Sodium 132 L (136-145) mmol/L Potassium 3.4 L (3.5-5.1) mmol/L Chloride 101 (98-107) mmol/L Carbon Dioxide 21 (21-32) mmol/L Anion Gap 10.0 (3-11) BUN 28 H (7-18) mg/dl Creatinine 1.33 H (0.6-1.2) mg/dl Est Cr Clr Drug Dosing Not Reportable Est GFR ( Amer) 47.8 Est GFR (Non-Af Amer) 41.3 BUN/Creatinine Ratio 20.9 H (10-20) Glucose 105 H (70-99) mg/dl Calcium 7.5 L (8.5-10.1) mg/dl Magnesium 1.9 (1.8-2.4) mg/dl Total Bilirubin 0.6 (0.2-1) mg/dl AST 24 (15-37) U/L ALT 27 (12-78) U/L Alkaline Phosphatase 118 H (45-117) U/L Troponin I < 0.015 (0-0.045) ng/ml Total Protein 5.9 L (6.4-8.2) gm/dl Albumin 2.6 L (3.4-5.0) gm/dl Globulin 3.3 (2.5-4.0) gm/dl Albumin/Globulin Ratio 0.8 L (0.9-2) TSH 0.914 (0.300-4.500) uIu/ml Urine Color Urine Appearance (Clear) Urine pH (4.5-7.5) Ur Specific [place] (1.000-1.030) Urine Protein (Negative) Urine Glucose (UA) (Negative) Urine Ketones (Negative) Urine Blood (Negative) Urine Nitrite (Negative) Urine Bilirubin (Negative) Urine Urobilinogen (Negative) Ur Leukocyte Esterase (Negative) Urine WBC (Auto) (0-5) /hpf Urine RBC (Auto) (0-4) /hpf U Hyaline Cast (Auto) (0-5) /lpf U Epithel Cells (Auto) (0-5) /lpf Urine Bacteria (Auto) (Negative) 04/19/20 04/19/20 04/19/20 Range/Units 13:30 13:30 13:30 WBC (4.8-10.8) K/uL RBC (4.2-5.4) M/uL Hgb (12.0-16.0) g/dL Hct (37-47) % MCV (80-100) fL MCH (25-34) pg MCHC (32-36) g/dL RDW Std Deviation (36.4-46.3) fL RDW Coeff of David (11.5-14.5) % Plt Count (130-400) K/uL MPV (7.4-10.4) fL Immature Gran % (Auto) % Neut % (Auto) % Lymph % (Auto) % Real % (Auto) % Eos % (Auto) % Baso % (Auto) % Neut # (Auto) (1.4-6.5) K/uL Lymph # (Auto) (1.2-3.4) K/uL Real # (Auto) (0.11-0.59) K/uL Eos # (Auto) (0-0.5) K/uL Baso # (Auto) (0-0.2) K/uL Immature Gran # (Auto) (0.00-0.02) K/uL PT (9.0-12.0) Seconds INR (0.9-1.1) APTT 37.5 H (21.0-31.0) Seconds PTT Ratio 1.3 D-Dimer 8720 H* (0-500) ug/L FEU Sodium (136-145) mmol/L Potassium (3.5-5.1) mmol/L Chloride (98-107) mmol/L Carbon Dioxide (21-32) mmol/L Anion Gap (3-11) BUN (7-18) mg/dl Creatinine (0.6-1.2) mg/dl Est Cr Clr Drug Dosing Est GFR ( Amer) Est GFR (Non-Af Amer) BUN/Creatinine Ratio (10-20) Glucose (70-99) mg/dl Calcium (8.5-10.1) mg/dl Magnesium (1.8-2.4) mg/dl Total Bilirubin (0.2-1) mg/dl AST (15-37) U/L ALT (12-78) U/L Alkaline Phosphatase (45-117) U/L Troponin I (0-0.045) ng/ml Total Protein (6.4-8.2) gm/dl Albumin (3.4-5.0) gm/dl Globulin (2.5-4.0) gm/dl Albumin/Globulin Ratio (0.9-2) TSH (0.300-4.500) uIu/ml Urine Color Yellow Urine Appearance Clear (Clear) Urine pH 5.0 (4.5-7.5) Ur Specific [place] 1.014 (1.000-1.030) Urine Protein Negative (Negative) Urine Glucose (UA) Negative (Negative) Urine Ketones Negative (Negative) Urine Blood Negative (Negative) Urine Nitrite Positive A (Negative) Urine Bilirubin Negative (Negative) Urine Urobilinogen Negative (Negative) Ur Leukocyte Esterase Trace H (Negative) Urine WBC (Auto) 1-5 (0-5) /hpf Urine RBC (Auto) 0-4 (0-4) /hpf U Hyaline Cast (Auto) 1-5 (0-5) /lpf U Epithel Cells (Auto) 10-20 H (0-5) /lpf Urine Bacteria (Auto) 2+ H (Negative) Administered Medications Discontinued Medications Albuterol (Duoneb) 3 ml NEB NOW STA Stop: 04/19/20 16:55 Last Admin: 04/19/20 17:05 Dose: 3 ml Documented by: [id number] Sodium Chloride (Nss) 500 mls @ 999 mls/hr IV .Q31M CATE Stop: 04/19/20 13:45 Last Infusion: 04/19/20 14:23 Dose: 0 mls/hr Documented by: [id number] Admin: 04/19/20 13:20 Dose: 999 mls/hr Documented by: [id number] Cefazolin Sodium (Ancef 2000mg) 2,000 mg in 15 mls @ 3.75 mls/min IV NOW STA Stop: 04/19/20 15:32 Last Admin: 04/19/20 16:58 Dose: 3.75 mls/min Documented by: [id number] Discharge Plan Visit Data Chief Complaint: Fall ED Provider: Pavel Alarcon Discharge Problem: Weakness, Fall, Acute UTI Patient Disposition: Admitted As Inpatient Discharge Instructions Interventions: ED Discharge Assessment Last Done: 04/19/20 17:29 Forms Stand Alone Forms: [facility] Prescriptions Prescriptions: No Action risperidone 3 mg tablet 3 mg PO HS RF: 0 lorazepam [Ativan] 0.5 mg tablet 0.5 mg PO TID PRN (Reason: Anxiety) RF: 0 desipramine 50 mg tablet 50 mg PO TIDM RF: 0 colesevelam 625 mg tablet 625 mg PO TID RF: 0 montelukast [Singulair] 10 mg tablet 10 mg PO HS RF: 0 escitalopram oxalate [Lexapro] 20 mg tablet 20 mg PO QAM RF: 0 Prilosec OTC 20 mg tablet,delayed release (DR/EC) 20 mg PO BID RF: 0 albuterol sulfate 90 mcg/actuation aerosol powdr breath activated 2 puffs INH Q4H PRN (Reason: Shortness Of Breath Or Wheezing) Qty: 1 RF: 5 Trelegy Ellipta 100-62.5-25 mcg blister with device 1 puffs INH QAM Qty: 60 RF: 5 ropinirole 0.25 mg tablet 0.25 mg PO HS 30 Days Qty: 30 RF: 3 metoprolol tartrate 25 mg tablet 12.5 mg PO BID RF: 0 oxycodone-acetaminophen 5-325 mg tablet 1 tab PO Q6H PRN (Reason: Pain) RF: 0 potassium chloride [Klor-Con M20] 20 mEq tablet,ER particles/crystals 20 meq PO BID RF: 0 ipratropium-albuterol 0.5 mg-3 mg(2.5 mg base)/3 mL Solution For Nebulization 3 ml INHALATION Q4H PRN (Reason: Shortness Of Breath Or Wheezing) RF: 0 desipramine 50 mg Tablet 100 mg PO HS RF: 0 mupirocin 2 % Ointment 1 applic TOPICAL BID PRN (Reason: BREAKOUTS\\) RF: 0 pyridoxine (vitamin B6) [Vitamin B-6] 100 mg Tablet 100 mg PO BID RF: 0 diclofenac sodium 1 % Gel 2 g TOPICAL DIRECTED RF: 0 cholecalciferol (vitamin D3) [Vitamin D3] 2,000 unit Capsule 2,000 unit PO QDD RF: 0 Creon 24,000-76,000 -120,000 unit Capsule,Delayed Release(Dr/Ec) 4 cap PO TID RF: 0 Centrum Silver Women 8 mg iron-400 mcg-300 mcg Tablet 1 tab PO DAILY RF: 0 Myrbetriq 50 mg Tablet Extended Release 24 Hr 50 mg PO QAM RF: 0 furosemide [Lasix] 80 mg tablet 80 mg PO BID RF: 0 ibuprofen [Advil] 200 mg Tablet 400 mg PO Q6H PRN (Reason: Pain) RF: 0 Referrals Referrals: Frederick Reynaga DO [Primary Care Provider] - Discharge Problem: Fall Qualifiers: Encounter type: initial encounter Qualified Code(s): W19.XXXA - Unspecified fall, initial encounter
[2020-04-19] MEDS ORDERED: SODIUM CHLORIDE 0.9% 500 ML IV SCH (13:15)
[2020-04-19 13:52] LABS: Basophils # (auto) 0.02 K/uL (0-0.2); Basophils % (auto) 0.2 %; Eosinophils # (auto) 0.06 K/uL (0-0.5); Eosinophils % (auto) 0.5 %; Hematocrit (blood only) 33.1 % (37-47); Hemoglobin 11.2 g/dL (12.0-16.0); Immature Granulocytes # (auto) 0.13 K/uL (0.00-0.02); Immature Granulocytes % (auto) 1.1 %; Lymphocytes # (auto) 0.54 K/uL (1.2-3.4); Lymphocytes % (auto) 4.6 %; Mean Corpuscular Hemoglobin 25.3 pg (25-34); Mean Corpuscular Hgb Conc 33.8 g/dL (32-36); Mean Corpuscular Volume 74.7 fL (80-100); Monocytes % (auto) 3.4 %; Neutrophils # (auto) 10.56 K/uL (1.4-6.5); Neutrophils % (auto) 90.2 %; Platelet Count 169 K/uL (130-400); RDW Coefficient of Variation 16.4 % (11.5-14.5); RDW Standard Deviation 45.2 fL (36.4-46.3); Red Blood Count 4.43 M/uL (4.2-5.4); White Blood Count 11.71 K/uL (4.8-10.8)
--- NOTE | 2020-04-19 13:52 | XRay Report ---
XR chest 1V portable CLINICAL HISTORY: weakness dyspnea COMPARISON STUDY: 03/30/2020 FINDINGS: Central catheter in superior vena cava. Lungs are considered clear. Slight chronic interstitial prominence. No focal infiltrate. IMPRESSION: Chronic change. No acute process. ACT 112: Negative or not required by law. The above report was generated using voice recognition software. It may contain grammatical, syntax or spelling errors. Electronically signed by: Tano Michaud M.D. 04/19/2020 1:51 PM
[2020-04-19 13:58] LABS: Appearance Urine Clear (Clear); Bacteria Urine Automated 2+ (Negative); Bilirubin Urine Negative (Negative); Blood Urine Negative (Negative); Color Urine Yellow; Glucose Urine UA Negative (Negative); Ketones Urine Negative (Negative); Leukocyte Esterase Urine Trace (Negative); Nitrite Urine Positive (Negative); Protein Urine Negative (Negative); RBC Urine Automated 0-4 /hpf (0-4); Specific Gravity Urine 1.014 (1.000-1.030); Urobilinogen Urine Negative (Negative)
[2020-04-19 14:00] LABS: Alanine Aminotransferase 27 U/L (12-78); Albumin Level 2.6 gm/dl (3.4-5.0); Aspartate Aminotransferase 24 U/L (15-37); BUN Creatinine Ratio 20.9 (10-20); Blood Urea Nitrogen 28 mg/dl (7-18); Calcium 7.5 mg/dl (8.5-10.1); Carbon Dioxide 21 mmol/L (21-32); Chloride 101 mmol/L (98-107); Est GFR (African American) 47.8; Est GFR (Non-African American) 41.3; Glucose 105 mg/dl (70-99); Magnesium 1.9 mg/dl (1.8-2.4); Potassium 3.4 mmol/L (3.5-5.1); Sodium 132 mmol/L (136-145)
[2020-04-19 14:02] LABS: INR 1.1 (0.9-1.1); Prothrombin Time 11.7 Seconds (9.0-12.0)
[2020-04-19 14:11] LABS: Albumin Globulin Ratio 0.8 (0.9-2); Alkaline Phosphatase 118 U/L (45-117); Bilirubin,Total 0.6 mg/dl (0.2-1); Globulin 3.3 gm/dl (2.5-4.0); Thyroid Stimulating Hormone 0.914 uIu/ml (0.300-4.500); Total Protein 5.9 gm/dl (6.4-8.2); Troponin I < 0.015 ng/ml (0-0.045)
--- NOTE | 2020-04-19 14:21 | CT Scan Report ---
CT head/brain wo con CLINICAL HISTORY: Head pain status post trauma COMPARISON STUDY: 03/30/2020 TECHNIQUE: Axial CT of the brain is performed from the vertex to the skull base. IV contrast was not administered for this examination. A dose lowering technique was utilized adhering to the principles of ALARA. CT DOSE: 537.48 mGy.cm FINDINGS: No intra or extra-axial mass lesions are visualized. There is no CT evidence of acute cortical infarc tion. There is no evidence of midline shift. There is no acute hemorrhage. No calvarial fractures ar e visualized. There are patchy white matter hypodensities likely on a small vessel basis. There is no evidence of pathologic ventricular dilatation. There is chronic right maxillary sinus mucosal thickening IMPRESSION: No acute intracranial findings ACT 112: Negative or not required by law. Electronically signed by: Yousuf Denny M.D. 04/19/2020 2:20 PM
[2020-04-19] MEDS ORDERED: CEFAZOLIN 3000MG/72.5 ML BAG IV STA (15:26)
[2020-04-19] MEDS ORDERED: CEFAZOLIN 2000MG 2,000 MG/15 ML SYR IV STA (15:29)
[2020-04-19] MEDS ORDERED: ALBUT/IPRATROP 3MG/0.5MG NEB 3 ML VIAL NEB STA (16:54)
[2020-04-19 17:09] LABS: D Dimer 8720 ug/L FEU (0-500)
[2020-04-19] MEDS ORDERED: Heparin IV Standard *NO* Bolus IV ONE (17:21)
--- NOTE | 2020-04-19 17:21 | History & Physical Report ---
Date of Service April 19, 2020 Assessment & Plan (1) Weakness: (2) Fall: Pt is 69 y/o F with PMH chronic diastolic CHF, dyslipidemia, short gut syndrome, COPD, sleep apnea, depression, venous stasis presented to ER with c/o fall. Pt states today was getting out of bed and she felt dizzy and her legs felt week and then she fell. In ER pt afebrile, P: 90, R: 20, BP: 113/65, 97% on RA CT Head: no acute changes. Hgb: 11.7 and stable at baseline In ER given 500ml NSS bolus Pt with no reported injury from fall Obtain orthostatics Appears dry on exam. Gentle IVF PT/OT eval CBC, BMP in am (3) Shortness of breath: H/O COPD R/O PE C/O SOB and wheezing x 1-2 days. Denies increased extremity edema CXR: no acute changes D-Dimer: 8700 Pending venous doppler BLE to r/o DVT Consider CTA chest or VQ scan tomorrow as renal functions allow to further e valuate for PE Will start Heparin now Duonebs Continue home inhaler, singulair (4) Possible urinary tract infection: WBC: 11. UA: +nitrite, trace leuk esterase, 10-20 epithelial, 2+bacteria Pt c/o dysuria In ER given cefazolin Will continue cefazolin. Pt has extensive allergy list, however pt has received on prior admissions Urine culture pending (5) JAVI (acute kidney injury): BUN: 28, Cr: 1.33. Baseline Cr: 0.7 with baseline GFR>60 Appears on dry side on exam Hold lasix for now Gentle IV fluids (6) Hypokalemia: K: 3.4. Magnesium: 1.9 Replace and monitor (7) Chronic diastolic (congestive) heart failure: 05/2019 echo: EF 65%, mild aortic regurgitation Pt with noted murmur. Will update echo today Monitor I&O's, daily weight (8) Short bowel syndrome: H/O prior intestinal surgery Continue Abdulaziz Newman Pump Runner consult (9) Chronic venous insufficiency: A/P left greater saphenous vein ablation on 04/18/[address] Otoole (10) Complex sleep apnea syndrome: Bipap HS (11) Depression: Continue escitalopram, risperidone DVT Prophylaxis -Currently on IV heparin Full Code Follows with Dr Reynaga for routine care Pt was seen and care coordinated with Dr Chicas. See addendum History of Present Illness Chief Complaint: Fall Primary Care Provider: Frederick Reynaga DO Pt is 69 y/o F with PMH chronic diastolic CHF, dyslipidemia, short gut syndrome, COPD, sleep apnea, depression, venous stasis presented to ER with c/o fall. Pt states today was getting out of bed and she felt dizzy and her legs felt week and then she fell. She states friends called EMS to help get her up off floor. She doesn't think she had LOC and denies any neck pain, back pain or extremity pain or known injury from fall. Pt states has been SOB for past 1-2 days and had wheezing this morning. Denies orthopnea but reports waking up at night with SOB. Denies any cough or CP, fever/chills, hemoptysis. She took albuterol inhaler at home with a little relief of SOB. Denies any increased BLE edema past several days. Pt with recent h/o BLE edema and had Lasix adjustments in March and then had low potassium and low sodium and Lasix was decreased to 80mg BID. Pt had left greater saphenous vein ablation on 04/18/[address] Otoole. Denies any leg pain, erythema or discharge from surgery site. Pt did not eat or drink today. Reports some dysuria today. Denies fever/chills, diaphoresis, N/V/D/C, LESLIE, vision changes, palpitations, cough, sore throat, choking, otalgia, rhinorrhea, abdominal pain, paresthesias, rashes, hematuria, urinary frequency. Allergies Allergy/AdvReac Type Severity Reaction Status Date / Time Penicillins Allergy Intermediate RASH ALL Verified 04/19/20 14:59 OVER UPPER BODY NO RESP SYMPTOMS piperacillin Allergy Intermediate RASH Verified 04/19/20 14:59 Sulfa (Sulfonamide Allergy Intermediate Generalized Verified 04/19/20 14:59 Antibiotics) Rash tazobactam Allergy Intermediate RASH ALL Verified 04/19/20 14:59 OVER UPPER BODY NO RESP SYMPTOMS bupropion Allergy Mild NERVOUS Verified 04/19/20 14:59 REACTION Cephalosporins Allergy Mild RASH, Verified 04/19/20 14:59 DIARRHEA levofloxacin Allergy Mild RASH,TURNED Verified 04/19/20 14:59 RED prochlorperazine Allergy Mild NERVOUS Verified 04/19/20 14:59 REACTION promethazine Allergy Mild UNKNOWN Verified 04/19/20 14:59 tobramycin Allergy Mild UNKNOWN Verified 04/19/20 14:59 bethanechol Allergy Unknown RASH, Verified 04/19/20 14:59 "FEELS FUNNY" clindamycin Allergy Unknown Unknown Verified 04/19/20 14:59 dipyridamole Allergy Unknown UNKNOWN Verified 04/19/20 14:59 droperidol Allergy Unknown Unknown Verified 04/19/20 14:59 morphine Allergy Unknown NERVOUS Verified 04/19/20 14:59 REACTION TO IT aspirin AdvReac Severe BLEEDING Verified 04/19/20 14:59 tedizolid AdvReac Severe GI SYMPTOMS Verified 04/19/20 14:59 ertapenem AdvReac Intermediate RASH Verified 04/19/20 14:59 cephalexin AdvReac Mild GI SYMPTOMS Verified 04/19/20 14:59 Home Medications Home Medications Medication Instructions Recorded Confirmed Type colesevelam 625 mg tablet 625 mg PO TID tab 06/17/18 04/19/20 History desipramine 50 mg tablet 50 mg PO TIDM tab 06/17/18 04/19/20 History escitalopram oxalate 20 mg tablet 20 mg PO QAM tab 06/17/18 04/19/20 History lorazepam 0.5 mg tablet 0.5 mg PO TID PRN tab 06/17/18 04/19/20 History montelukast 10 mg tablet 10 mg PO HS 06/17/18 04/19/20 History risperidone 3 mg tablet 3 mg PO HS tab 06/17/18 04/19/20 History Centrum Silver Women 1 tab PO DAILY 05/05/19 04/19/20 History Creon 4 cap PO TID 05/05/19 04/19/20 History Myrbetriq 50 mg PO QAM 05/05/19 04/19/20 History cholecalciferol (vitamin D3) 2,000 unit PO QDD 05/05/19 04/19/20 History [Vitamin D3] desipramine 100 mg PO HS 05/05/19 04/19/20 History diclofenac sodium 2 g TOPICAL DIRECTED 05/05/19 04/19/20 History ipratropium-albuterol 3 ml INHALATION Q4H PRN 05/05/19 04/19/20 History mupirocin 1 applic TOPICAL BID PRN 05/05/19 04/19/20 History pyridoxine (vitamin B6) [Vitamin 100 mg PO BID 05/05/19 04/19/20 History B-6] metoprolol tartrate 25 mg tablet 12.5 mg PO BID tab 05/17/19 04/19/20 History omeprazole magnesium 20 mg 20 mg PO BID tab 05/17/19 04/19/20 History tablet,delayed release albuterol sulfate 90 mcg/actuation 2 puffs INH Q4H PRN #1 ea 10/17/19 04/19/20 Rx breath activated powder inhaler fluticasone fur. 100 mcg-umeclid 1 puffs INH QAM #60 ea 12/12/19 04/19/20 Rx 62.5 mcg-vilant 25 mcg inhalat.powder ropinirole 0.25 mg tablet 0.25 mg PO HS 30 Days #30 tab 03/06/20 04/19/20 Rx furosemide [Lasix] 80 mg PO BID 03/30/20 04/19/20 History ibuprofen [Advil] 400 mg PO Q6H PRN 03/30/20 04/19/20 History oxycodone-acetaminophen 1 tab PO Q6H PRN 04/19/20 04/19/20 History potassium chloride [Klor-Con M20] 20 meq PO BID 04/19/20 04/19/20 History Past Med/Surg History Medical History Abscess of skin of left wrist Chronic diastolic (congestive) heart failure (Chronic) follows w/ Dr. Otoole Chronic sinusitis Deep vein thrombosis RLE - 15-20 years ago - immobility - treated w/ AC. Depression Enterocutaneous fistula (Inactive) History of jejunostomy tube placement History of kidney stones Morbid obesity MRSA (methicillin resistant staph aureus) culture positive Left wrist Osteoarthritis Pancreatic insufficiency Peripheral neuropathy Port-A-Cath in place PUD (peptic ulcer disease) PVC (premature ventricular contraction) (Inactive) Short bowel syndrome (Chronic) Urinary leakage Wrist fracture, left Surgical History History of appendectomy History of cardiac cath 2-3 months ago - [place] - no stents History of cholecystectomy History of colonoscopy (~2016) History of esophagogastroduodenoscopy (EGD) (~2016) History of gastrointestinal surgery multiple History of joint replacement Rt thumb History of knee replacement procedure of right knee History of lithotripsy History of open reduction and internal fixation (ORIF) procedure LUE History of partial gastrectomy History of sinus surgery History of tonsillectomy and adenoidectomy History of total abdominal hysterectomy and bilateral salpingo-oophorectomy Family History Mother Family history of diabetes mellitus Sister Family history of diabetes mellitus Father Esophageal cancer Other Family history non-contributory No family history of adverse response to anesthesia Social History Preferred Language: Arabic Communication Ability: Effective Mold Builder Required: No Beliefs That Will Affect Care: None Current Living Situation: Alone Current Living Situation Comment: Apartment - [facility] Feels Safe at Home: Yes Safety Concerns: Feels Safe At This Time Smoking Status: Never smoker Second Hand Exposure: Yes (parents smoke) ; Hx Alcohol Use: No Hx Substance Use: No Review of Systems Review of Systems: All systems reviewed & are unremarkable except as noted in HPI & below Physical Exam Physical Exam: General: no distress, obese Head: normocephalic, atraumatic Eyes: PERRL, EOM's intact, conjunctiva non-injected, anicteric ENT: normal inspection external ears, nose, mucous membranes mildly dry Neck: supple, trachea midline Lungs: clear, R: 22, no wheezing/rhonchi/rales CV: RRR, + murmur, 1-2+ pretibial edema Abd: normal BS, multiple healed surgical scars, soft, non-tender Ext: no cyanosis, no erythema, no calf tenderness, left lower leg with puncture site with surrounding mild ecchymosis that is non-tender to palpation no discharge or surrounding erythema Neuro: A&O x 3, no focal deficits noted, normal affect Skin: warm, dry Results & Data Results & Data ([facility]) Vital Signs (Past 12 Hours) Vital Signs Temp Pulse Pulse Resp BP Pulse Ox 04/19/20 17:05 99 H 18 96 04/19/20 16:50 103 H 28 H 100/71 92 04/19/20 16:00 100 H 28 H 92/50 L 97 04/19/20 15:32 102 H 23 96 04/19/20 15:31 102 H 33 H 109/47 L 93 04/19/20 15:24 102 H 28 H 104/65 04/19/20 15:08 102 H 20 04/19/20 13:35 96 H 23 122/65 04/19/20 13:01 79 28 H 98 04/19/20 12:46 90 27 H 113/65 97 04/19/20 12:45 36.9 C 90 20 113/65 97 Laboratory Results Short CBC 04/19/20 Range/Units 13:30 WBC 11.71 H (4.8-10.8) K/uL Hgb 11.2 L (12.0-16.0) g/dL Hct 33.1 L (37-47) % Plt Count 169 (130-400) K/uL BMP 04/19/20 13:30 Sodium 132 L Potassium 3.4 L Chloride 101 Carbon Dioxide 21 BUN 28 H Creatinine 1.33 H Glucose 105 H Calcium 7.5 L Cardiac Enzymes 04/19/20 Range/Units 13:30 Troponin I < 0.015 (0-0.045) ng/ml Liver Function 04/19/20 Range/Units 13:30 Total Bilirubin 0.6 (0.2-1) mg/dl AST 24 (15-37) U/L ALT 27 (12-78) U/L Alkaline Phosphatase 118 H (45-117) U/L Albumin 2.6 L (3.4-5.0) gm/dl Urine 04/19/20 Range/Units 13:30 Urine Color Yellow Urine Appearance Clear (Clear) Urine pH 5.0 (4.5-7.5) Ur Specific [place] 1.014 (1.000-1.030) Urine Protein Negative (Negative) Urine Glucose (UA) Negative (Negative) Diagnostic Findings CT HEAD: IMPRESSION: No acute intracranial findings CXR: IMPRESSION: Chronic change. No acute process. Code Status & VTE Plan VTE Prophylaxis Plan VTE Prophylaxis will be ordered: Yes Supervising Physician Co-Signing Physician Notes Patient is a 69-year-old female with history of chronic diastolic heart failure, short bowel syndrome, COPD and other medical problems presents with history of dizziness associated with a fall. She also states having shortness of breath associated with some mild wheezing since 1 to 2 days duration. Patient had left great saphenous vein ablation yesterday by Dr. Otoole. She was noted to have relatively low blood pressure while in ED. Her white count is elevated at 11.7 K. Mild hypokalemia 3.4, JAVI with Cr:1.3 noted. Urinalysis suggestive of possible UTI. Also noted mild hyponatremia 132. She complained of generalized weakness currently. On exam patient is obese, no apparent distress, normocephalic atraumatic, lungs--decreased breath sounds, clear to auscultation, S1-S2,+ murmur, abdomen soft, nontender,+ well-healed surgical scar, abdominal wall hernia, grossly no focal neurologic deficits, 1+bilateral lower extremity edema noted. Patient is admitted for management of JAVI, generalized weakness/fall, dehydration, possible UTI. Also to rule out PE/DVT. D-dimer is elevated at 8700. Will hold diuretics, give IV fluids, check orthostatics. Will start on antibiotics for UTI. Will obtain cultures. Venous Doppler suggestive of left greater saphenous vein thrombus. Will need to obtain CTA once renal function improves tomorrow. Will start on IV heparin. Avoid nephrot oxic agents as able. PT OT, fall precautions. No wheezes on exam noted. Will give duo nebs. Consider glucocorticoids if develops wheezing. I personally reviewed the record. Patient is interviewed and examined at bedside. Patient's care is coordinated with Verona Templeton PA-C. Please refer to the documentation above for details of patient's presentation and for discussion of other issues.
[2020-04-19] MEDS ORDERED: HEPARIN SODIUM/DEXTROSE 25,000 UNITS/500 ML BAG IV SCH (17:30)
[2020-04-19 17:44] LABS: Partial Thromboplastin Ratio 1.3; Partial Thromboplastin Time 37.5 Seconds (21.0-31.0)
--- NOTE | 2020-04-19 18:33 | Ultrasound Report ---
US venous doppler LE BI CLINICAL HISTORY: elevated d-dimer BILATERAL LEG PAIN COMPARISON STUDY: No previous studies for comparison. FINDINGS: Grayscale, color-flow, and Doppler spectral waveform analysis was performed On the right, no intraluminal thrombus was visualized. The veins are fully compressible from the groi n to the popliteal fossa. There is normal color flow within the proximal trifurcation veins at the ri t calf. Note is made of a right-sided popliteal cyst measuring 36 x 21 x 11 mm. On the left, no thrombus is visualized within the deep system proper. There is thrombus within the gr eater saphenous vein extending from the mid calf to within 1.2 cm of the common femoral vein confluen ce. IMPRESSION: 1. No evidence of right lower extremity DVT 2. Long segment thrombus within the left greater saphenous vein extending from the mid calf to within 1.2 cm of the common femoral vein confluence ACT 112: Negative or not required by law. Electronically signed by: Yousuf Denny M.D. 04/19/2020 6:32 PM
--- NOTE | 2020-04-19 19:05 | Electrocardiogram Report ---
Test Reason : Blood Pressure : / mmHG Vent. Rate : 095 BPM Atrial Rate : 095 BPM P-R Int : 174 ms QRS Dur : 104 ms QT Int : 352 ms P-R-T Axes : 048 -25 043 degrees QTc Int : 442 ms Normal sinus rhythm Moderate voltage criteria for LVH, may be normal variant Nonspecific ST abnormality Borderline ECG When compared with ECG of 30-MAR-2020 17:06, [place] interval has decreased T wave inversion no longer evident in Inferior leads T wave inversion no longer evident in Anterior leads Confirmed by Rohith Patel ([id number]) on 04/19/2020 7:05:46 PM Referred By: ED Confirmed By:Irving Patel
[2020-04-19] MEDS ORDERED: POTASSIUM CHLORIDE 20 MEQ TABCR PO STA (19:19)
[2020-04-19] MEDS ORDERED: LORazepam 0.5 MG TAB PO PRN (19:19)
[2020-04-19] MEDS ORDERED: OXYCODONE/ACETAMINOPHEN 5mg/325mg TAB PO PRN (19:19)
[2020-04-19] MEDS: ALBUT/IPRATROP 3MG/0.5MG NEB 3 ML VIAL NEB SCH (19:46)
[2020-04-19] MEDS ORDERED: CEFAZOLIN 1000MG 1,000 MG/7.5 ML SYR IV SCH (20:00)
[2020-04-19] MEDS ORDERED: COLESEVELAM 625 MG PO SCH (21:00)
[2020-04-19] MEDS ORDERED: METOPROLOL TARTRATE 25 MG TAB PO SCH (21:00)
[2020-04-19] MEDS ORDERED: POTASSIUM CHLORIDE 20 MEQ TABCR PO SCH (21:00)
[2020-04-19] MEDS ORDERED: risperiDONE 3 MG TABLET PO SCH (21:00)
[2020-04-19] MEDS: ACETAMINOPHEN 325 MG TAB PO PRN (21:12)
[2020-04-19] MEDS: PANTOprazole 40 MG TAB PO SCH (21:13)
[2020-04-19] MEDS: MONTELUKAST SODIUM 10 MG TABLET PO SCH (21:14)
[2020-04-19] MEDS: risperiDONE 1 MG TABLET PO SCH (21:14)
[2020-04-19] MEDS: PYRIDOXINE HCL 50 MG TAB PO SCH (21:14)
[2020-04-19] MEDS: ROPINIROLE HCL 0.25 MG TABLET PO SCH (21:51)
[2020-04-19] MEDS: DESIPRAMINE HCL 50 MG TAB PO SCH (21:51)
[2020-04-19] MEDS ORDERED: POTASSIUM CHLORIDE 10 MEQ in SODIUM CHLORIDE 0.9% 1000ML 1,000 ML IV SCH (22:00)
[2020-04-19] MEDS ORDERED: HEPARIN 100 UNIT/ML 5ML FLUSH FLUSH PRN (23:03)
[2020-04-19] MEDS ORDERED: SODIUM CHLORIDE 0.9% 500 ML IV ONE (23:32)
--- NOTE | 2020-04-19 23:44 | Communication Note ---
Date of Service: April 19, 2020 Overnight developments 04/19, 2330 Notified by RN of SBP 70s. Patient asleep as per RN. NSS 500 cc bolus given. Blood cultures, lactic acid drawn for possible severe sepsis secondary to UTI. IV Cefazolin for complicated UTI changed to IV Azactam for amplified gram- negative coverage given multiple antibiotic allergies and history of cefazolin resistant Enterobacter on prior urine CS. 04/20, 12-2 AM Fever spike SBP 60s after fluid bolus RR 28 O2 sats 93 on 2L Patient drowsy as per RN. Patient denies chest pain, cough; shortness of breath better than admission as per patient Transient headache symptoms as per patient. Chest x-ray as per my interpretation congestion WBC 18 platelets 108 lactic acid WNL serum crea 1.46 Difficulty obtaining additional IV access as per med systems lead. AP Persistent hypotension Severe sepsis, possible septic shock, history recurrent UTIs, history of MRSA as per records Hypoxemic respiratory failure secondary to pulmonary congestion, possible PE (Ongoing IV heparin rx for presumptive PE, superficial LE clot) Possible adrenal insufficiency given recent outpatient steroid course for shoulder tendinitis Headache, lethargy Rule out intracranial hemorrhage with IV heparin Rx New onset thrombocytopenia Rule out HIT ICU transfer IV albumin given pulmonary congestion Add Daptomycin to Azactam Decadron 1 dose now for possible adrenal insufficiency Hold antihypertensives for now Hold heparin for now CT head prior to ICU transfer RE headache, lethargy, thrombocytopenia, IV heparin Rx HIT screen (inpatient testing currently unavailable) Consider Argatroban for presumptive PE/possible HIT until send out HIT screen testing results back if CT head negative for bleed Case d/w ICU Provider, Nikujn Conklin PA-C.
[2020-04-20] MEDS ORDERED: AZTREONAM 1,000 MG in DEXTROSE 5% 100 ML IV STA (00:04)
[2020-04-20] MEDS ORDERED: AZTREONAM CONSULT ACTIVE PRN (00:46)
[2020-04-20 00:47] LABS: BUN Creatinine Ratio 20.1 (10-20); Calcium 6.9 mg/dl (8.5-10.1); Creatinine Clr Calc Pharmacy 41.2 ml/min; Est GFR (African American) 47.4; Est GFR (Non-African American) 40.9
[2020-04-20] MEDS ORDERED: MAGNESIUM SULFATE / D5W 1 GM/100 ML BAG IV ONE (00:50)
[2020-04-20] MEDS ORDERED: POTASSIUM CHLORIDE PWD 20 MEQ PACK PO STA (00:50)
[2020-04-20] MEDS ORDERED: POTASSIUM CHLORIDE 40 MEQ in SODIUM CHLORIDE 0.9% 1000ML 1,000 ML IV ONE (00:53)
[2020-04-20] MEDS ORDERED: ACETAMINOPHEN 325 MG TAB PO STA (00:54)
[2020-04-20] MEDS ORDERED: POTASSIUM CHLORIDE 40 MEQ in SODIUM CHLORIDE 0.9% 1000ML 1,000 ML IV SCH (01:00)
[2020-04-20] MEDS ORDERED: DAPTOMYCIN CONSULT ACTIVE PRN (02:07)
[2020-04-20] MEDS ORDERED: ALBUMIN 25% 50 ML IV ONE ×2 (02:11→03:00)
[2020-04-20 02:12] LABS: Hematocrit (blood only) 31.7 % (37-47); Hemoglobin 10.8 g/dL (12.0-16.0); Mean Corpuscular Hemoglobin 25.2 pg (25-34); Mean Corpuscular Hgb Conc 34.1 g/dL (32-36); Mean Corpuscular Volume 73.9 fL (80-100); Platelet Count 108 K/uL (130-400); RDW Coefficient of Variation 16.5 % (11.5-14.5); RDW Standard Deviation 44.7 fL (36.4-46.3); Red Blood Count 4.29 M/uL (4.2-5.4); White Blood Count 18.51 K/uL (4.8-10.8)
[2020-04-20] MEDS ORDERED: XOPENEX/ATROVENT 1.25mg/0.5MG NEB COMBO NEB STA (02:23)
[2020-04-20 02:32] LABS: Partial Thromboplastin Ratio 4.4
[2020-04-20 02:34] LABS: BUN Creatinine Ratio 18.7 (10-20); Calcium 6.8 mg/dl (8.5-10.1); Creatinine Clr Calc Pharmacy 37.8 ml/min; Est GFR (African American) 42.7; Est GFR (Non-African American) 36.9; Potassium 3.7 mmol/L (3.5-5.1)
[2020-04-20] MEDS ORDERED: DEXAMETHASONE SOD PHOSPHATE 4 MG in SYRINGE 0 ML IV STA (02:34)
[2020-04-20] MEDS ORDERED: LEVALBUTEROL 1.25MG/0.5ML NEB INH STA (02:35)
[2020-04-20] MEDS ORDERED: IPRATROPIUM BROMIDE NEB SOLN 0.02% 2.5 ML VIAL INH STA (02:35)
[2020-04-20 02:40] LABS: Partial Thromboplastin Time 123.8 Seconds (21.0-31.0)
[2020-04-20] MEDS ORDERED: DAPTOmycin 275 MG in SYRINGE 0 ML IV SCH (03:00)
[2020-04-20 03:20] LABS: Allen Test POS (Pos); Base Excess ABG -4.2 mEq/L (-9-1.8); HCO3 ABG 19 mmol/L (19-24); Oxygen Saturation ABG 94.3 % (90-95); PCO2 ABG 28 mmHg (35-46); PO2 ABG 71 mmHg (80-95); pH ABG 7.45 (7.35-7.45)
[2020-04-20 03:24] LABS: Troponin I 0.047 ng/ml (0-0.045)
[2020-04-20] MEDS ORDERED: STAT IV Infusion **Titration per Protocol STA ×2 (04:17→05:31)
[2020-04-20] MEDS: NOREPINEPHRINE BIT INJ 8 MG in DEXTROSE 5% 500 ML IV SCH ×3 (04:45→21:26)
[2020-04-20] MEDS ORDERED: ICU PROTOCOL FOR HYPERGLYCEMIA PRN (04:47)
--- NOTE | 2020-04-20 05:25 | Critical Care Consultation ---
Date of Consultation April 20, 2020 Assessment & Plan (1) Admitted to intensive care unit: Reason Critically Ill: 69-year-old female admitted to the ICU for shock and hypoxia, now requiring vasopressors Neuro - Holding anxiety medications as patient has become increasingly drowsy, likely secondary to hypotension/sepsis CT head negative Cardiac - Shock/hypotensionlikely secondary to septic shock given elevated procalcitonin of 52, see treatment sepsis below -Starting 100 mg hydrocortisone every 6 hours -Follow-up TTE read, rule out cor pulmonale -Trending troponins -Currently requiring levo fed and vasopressin, titrate for maps greater than 65 -A-line for continuous BP monitoring -Holding BP medications Respiratory - Hypoxic respiratory insufficiency/apneapatient maintaining sats on nasal cannula however placed on BiPAP for periods of apnea -Suspicion for PE given hypoxia, lower extremity DVT on Doppler -Continue heparin drip -We will evaluate for cor pulmonale on echo -We will hold on CTA for now due to worsening renal function -Caution with IV fluid as patient has history of diastolic heart failure, worsening congestion on chest x-ray -We will hold on diuresis for now as patient is hypotensive -Continue DuoNeb, Singulair -Continuous monitoring on pulse ox GI - History of RENAL/LYTES - AKIcreatinine uptrending to 1.4 -Likely prerenal/ATN in the setting of hypotension/shock -Vasopressors for map management greater than 65 -Avoid nephrotoxins -Monitor routine BMPs, trend - Strict I's and O's ENDO - No history of diabetes thyroid disease ICU hyperglycemic protocol TSH within normal limits HEME - H&H stable, monitor routine CBCs ID - Sepsispatient now febrile, leukocytosis, procal 52, UA +2 bacteria -Patient with history of MRSA bacteremia and drug-resistant E. coli -Multiple antibiotic allergies, currently on daptomycin and aztreonam -Urine culture, blood cultures pending LINES/IV ACCESS - Central port access, peripheral IV DVT PROPHYLAXIS - SCDs, heparin drip I have personally spent 70 minutes of critical care time in the direct management of this patient. This is a life/limb threatening event. This includes time spent evaluating patient, direct bedside care, chart review, placing orders, interpretation of diagnostic studies, discussion with consultants, patient, and family members, as well as other required patient management activities. This time is exclusive of all separately billable procedures, and teaching time and separate from and in addition to any other critical care service time. Thank you for allowing us to participate in the care of this patient. Please refer to my attending physician's documentation for any further recommendations. (2) Shock: (3) Sepsis: (4) Acute UTI: (5) JAVI (acute kidney injury): (6) Acute respiratory insufficiency: (7) Chronic venous insufficiency: (8) Asthma: (9) Edema of left lower extremity: Supervising Physician Co-Signing Physician Notes Patient seen and examined. EMR reviewed. Images independently reviewed. Discussed with critical care ESTEVAN as well as on multidisciplinary rounds and with bedside critical care nurse. Agree with assessment and plan as noted. 69-year-old female status post fall admitted with significant hypotension.. She is currently requiring norepinephrine and vasopressin although we are weaning the neuro her chest x-ray does appear somewhat hazy and certainly pneumonia. Novel coronavirus testing was negative. She was initiated on aztreonam and daptomycin in the presumed septic shock of unclear etiology although her chest x-ray does demonstrate some mild infiltrates. There was initial concern about pulmonary embolism as she recently underwent saphenous vein ablation. No DVT was identified. She had a mild increase in serum creatinine from her baseline. At this point time she appears to have septic shock although interestingly her lactate was normal. Will continue to look for sources abdomen and pelvis as she does have an extensive abdominal history. Certainly lungs would also be a potential source of infection wean off BiPAP and continue to wean pressors as tolerated. Electrolytes will be replaced. We will keep n.p.o. pending results of imaging studies. Continue noninvasive positive pressure ventilation at night. Patient will continue to be monitored in the ICU for now. She remains critically ill with significant possibility of clinical deterioration. She has agreed to intubation mechanical ventilation should it become necessary however she would not want CPR which I think is reasonable given her age and medical comorbidities. History of Present Illness Attending Physician: Aubrey Chicas MD History of Present Illness Mrs. Braswell is a 69-year-old female with PMH significant for chronic diastolic CHF, HLD, short gut syndrome (status post multiple bowel surgeries/resection), COPD, obstructive sleep apnea (noncompliant with CPAP), venous stasis of left lower extremity (s/p ablation of left greater saphenous vein 04/18). She initially presented to the emergency department yesterday with complaints of fall after getting out of bed and feeling dizzy and weak in the legs. Patient has been short of breath for 1 to 2 days and was wheezing this morning, and reports waking up with shortness of breath. She was found to have JAVI and was admitted for weakness/falls with shortness of breath. CT of the chest was notable for due to the patient's creatinine however she did have a lower extremity DVT which did show thrombus in the left lower extremity, however patient did have ablation of the greater saphenous vein 2 days ago. She was placed on heparin drip for questionable PE. Patient did become febrile overnight and increasingly hypotensive throughout the night. She was given multiple boluses without improvement was becoming increasingly hypoxic and now requiring nasal oxygen. Patient be taken for CT the head as she was on heparin drip and complaining of headache with increased drowsiness, and result was negative. She was transferred to the ICU for worsening hypotension/shock. Her antibiotics have been broadened, and she is now requiring multiple vasopressors. Procalcitonin elevated to 53, consistent with sepsis. Patient to undergo VQ scan for PE rule out once stable. I did discuss with the patient her CODE STATUS. Patient is currently alert and oriented and answers appropriately though drowsy. She states that she has a living will that states that she is a DNR in the event of cardiac arrest. She states that in the event of cardiac arrest she would not want CPR, defibrillation, or other ACLS measures. She did state that she would be willing to be intubated if she were to experience respiratory failure requiring mechanical ventilation. Currently the patient is drowsy but arousable with verbal stimulation and is oriented and appropriate. She currently denies headache dizziness or syncope, cough or sore throat, shortness of breath, palpitations, chest pain, nausea or vomiting, abdominal pain, or diarrhea. Patient to remain in ICU this time as she is requiring multiple vasopressors for shock. Allergies Allergy/AdvReac Type Severity Reaction Status Date / Time Penicillins Allergy Intermediate RASH ALL Verified 04/19/20 14:59 OVER UPPER BODY NO RESP SYMPTOMS piperacillin Allergy Intermediate RASH Verified 04/19/20 14:59 Sulfa (Sulfonamide Allergy Intermediate Generalized Verified 04/19/20 14:59 Antibiotics) Rash tazobactam Allergy Intermediate RASH ALL Verified 04/19/20 14:59 OVER UPPER BODY NO RESP SYMPTOMS bupropion Allergy Mild NERVOUS Verified 04/19/20 14:59 REACTION Cephalosporins Allergy Mild RASH, Verified 04/19/20 14:59 DIARRHEA levofloxacin Allergy Mild RASH,TURNED Verified 04/19/20 14:59 RED prochlorperazine Allergy Mild NERVOUS Verified 04/19/20 14:59 REACTION promethazine Allergy Mild UNKNOWN Verified 04/19/20 14:59 tobramycin Allergy Mild UNKNOWN Verified 04/19/20 14:59 bethanechol Allergy Unknown RASH, Verified 04/19/20 14:59 "FEELS FUNNY" clindamycin Allergy Unknown Unknown Verified 04/19/20 14:59 dipyridamole Allergy Unknown UNKNOWN Verified 04/19/20 14:59 droperidol Allergy Unknown Unknown Verified 04/19/20 14:59 morphine Allergy Unknown NERVOUS Verified 04/19/20 14:59 REACTION TO IT aspirin AdvReac Severe BLEEDING Verified 04/19/20 14:59 tedizolid AdvReac Severe GI SYMPTOMS Verified 04/19/20 14:59 ertapenem AdvReac Intermediate RASH Verified 04/19/20 14:59 cephalexin AdvReac Mild GI SYMPTOMS Verified 04/19/20 14:59 Home Medications Home Medications Medication Instructions Recorded Confirmed Type colesevelam 625 mg tablet 625 mg PO TID tab 06/17/18 04/19/20 History desipramine 50 mg tablet 50 mg PO TIDM tab 06/17/18 04/19/20 History escitalopram oxalate 20 mg tablet 20 mg PO QAM tab 06/17/18 04/19/20 History lorazepam 0.5 mg tablet 0.5 mg PO TID PRN tab 06/17/18 04/19/20 History montelukast 10 mg tablet 10 mg PO HS 06/17/18 04/19/20 History risperidone 3 mg tablet 3 mg PO HS tab 06/17/18 04/19/20 History Centrum Silver Women 1 tab PO DAILY 05/05/19 04/19/20 History Creon 4 cap PO TID 05/05/19 04/19/20 History Myrbetriq 50 mg PO QAM 05/05/19 04/19/20 History cholecalciferol (vitamin D3) 2,000 unit PO QDD 05/05/19 04/19/20 History [Vitamin D3] desipramine 100 mg PO HS 05/05/19 04/19/20 History diclofenac sodium 2 g TOPICAL DIRECTED 05/05/19 04/19/20 History ipratropium-albuterol 3 ml INHALATION Q4H PRN 05/05/19 04/19/20 History mupirocin 1 applic TOPICAL BID PRN 05/05/19 04/19/20 History pyridoxine (vitamin B6) [Vitamin 100 mg PO BID 05/05/19 04/19/20 History B-6] metoprolol tartrate 25 mg tablet 12.5 mg PO BID tab 05/17/19 04/19/20 History omeprazole magnesium 20 mg 20 mg PO BID tab 05/17/19 04/19/20 History tablet,delayed release albuterol sulfate 90 mcg/actuation 2 puffs INH Q4H PRN #1 ea 10/17/19 04/19/20 Rx breath activated powder inhaler fluticasone fur. 100 mcg-umeclid 1 puffs INH QAM #60 ea 12/12/19 04/19/20 Rx 62.5 mcg-vilant 25 mcg inhalat.powder ropinirole 0.25 mg tablet 0.25 mg PO HS 30 Days #30 tab 03/06/20 04/19/20 Rx furosemide [Lasix] 80 mg PO BID 03/30/20 04/19/20 History ibuprofen [Advil] 400 mg PO Q6H PRN 03/30/20 04/19/20 History oxycodone-acetaminophen 1 tab PO Q6H PRN 04/19/20 04/19/20 History potassium chloride [Klor-Con M20] 20 meq PO BID 04/19/20 04/19/20 History Patient History Medical History Abscess of skin of left wrist Chronic diastolic (congestive) heart failure (Chronic) follows w/ Dr. Otoole Chronic sinusitis Deep vein thrombosis RLE - 15-20 years ago - immobility - treated w/ AC. Depression Enterocutaneous fistula (Inactive) History of jejunostomy tube placement History of kidney stones Morbid obesity MRSA (methicillin resistant staph aureus) culture positive Left wrist Osteoarthritis Pancreatic insufficiency Peripheral neuropathy Port-A-Cath in place PUD (peptic ulcer disease) PVC (premature ventricular contraction) (Inactive) Short bowel syndrome (Chronic) Urinary leakage Wrist fracture, left Surgical History History of appendectomy History of cardiac cath 2-3 months ago - [place] - no stents History of cholecystectomy History of colonoscopy (~2015) History of esophagogastroduodenoscopy (EGD) (~2015) History of gastrointestinal surgery multiple History of joint replacement Rt thumb History of knee replacement procedure of right knee History of lithotripsy History of open reduction and internal fixation (ORIF) procedure LUE History of partial gastrectomy History of sinus surgery History of tonsillectomy and adenoidectomy History of total abdominal hysterectomy and bilateral salpingo-oophorectomy Family History Mother Family history of diabetes mellitus Sister Family history of diabetes mellitus Father Esophageal cancer Other Family history non-contributory No family history of adverse response to anesthesia Social History Preferred Language: [place] Communication Ability: Effective Embossed Or Impressed Lettering Painter Required: No Beliefs That Will Affect Care: None Current Living Situation: Alone Current Living Situation Comment: [facility] Feels Safe at Home: Yes Safety Concerns: Feels Safe At This Time Smoking Status: Never smoker Second Hand Exposure: Yes (parents smoke) ; Hx Alcohol Use: No Hx Substance Use: No Review of Systems Review of Systems: All systems reviewed & are unremarkable except as noted in HPI & below Physical Exam Constitutional: cooperative and + lethargic Eyes: PERRL, conjunctivae normal, anicteric sclerae ENMT: external ear and nose normal, oropharynx normal Neck: trachea midline, no thyromegaly Respiratory: Nonlabored breathing, does display periods of apnea while asleep, symmetrical chest wall movement, coarse crackles auscultated bilaterally in lower lobes. No wheezing. No tachypnea. Cardiovascular: RRR, no murmur, no edema Heart Sounds: normal S1 and normal S2 Vessels: no JVD Extremities: normal capillary refill; no edema Gastrointestinal (Abdomen): Abdomen distended but soft and nontender, midline surgical scar healed from prior surgery, bowel sounds normal Skin: no rashes, warm and dry Neurologic: PERRL, EOMI, accommodation nl, no face palsy, no dysarthria Psychiatric: A+Ox3, euthymic affect Results & Data Results & Data ([facility]) Vital Signs (Past 12 Hours) Vital Signs Temp Pulse Pulse Resp BP BP BP 04/20/20 03:43 37.3 C 85 20 50/34 L 04/20/20 03:05 86 18 04/20/20 02:08 69/54 L 04/20/20 01:57 37.5 C 92 H 28 H 65/49 L 04/20/20 01:35 101 H 04/20/20 00:41 90 84/52 L 04/20/20 00:40 38.3 C H 04/19/20 23:00 36.9 C 93 H 18 76/51 L 71/46 L 04/19/20 21:09 36.9 C 22 109/58 L 04/19/20 19:44 77 18 04/19/20 19:31 37.1 C 98 H 20 99/63 L 04/19/20 19:18 98 H 04/19/20 17:48 95 H 27 H 04/19/20 17:30 96 H 28 H 107/52 L Pulse Ox 04/20/20 03:43 96 04/20/20 03:05 93 04/20/20 02:08 04/20/20 01:57 93 04/20/20 01:35 04/20/20 00:41 04/20/20 00:40 04/19/20 23:00 99 04/19/20 21:09 96 04/19/20 19:44 93 04/19/20 19:31 93 04/19/20 19:18 04/19/20 17:48 95 04/19/20 17:30 97 Coding Level of Care Code Critical Care 1st 30-74 mins Diagnoses Admitted to intensive care unit Z78.9 Shock R57.9 Sepsis A41.9 Acute UTI N39.0 JAVI (acute kidney injury) N17.9 Acute respiratory insufficiency R06.89 Chronic venous insufficiency I87.2 Asthma J45.909 Edema of left lower extremity R60.0
--- NOTE | 2020-04-20 05:29 | Procedure Note ---
Procedure Note Date of Service April 20, 2020 Note ARTERIAL LINE PROCEDURE NOTE: Procedure: Arterial Line Placement Attending: Dr. Troy Canales Provider: KHOI Recinos Indication: Monitoring on Pressors Anesthesia: Lidocaine 1% Line placed emergently in the setting of septic shock requiring vasopressors A time-out was completed verifying correct patient, procedure, site, positioning, and implant(s) or special equipment if applicable. Allens test was performed to ensure adequate perfusion. Patients right wrist was prepped and draped in the usual sterile fashion. Ultrasound guidance was used to aid needle placement. A 20g Arrow arterial line was introduced into the right radial artery. Catheter was threaded, and the needle was removed with appropriate blood return. Good waveform was observed. The patient tolerated the procedure well. Confirmation of placement with ultrasound. Blood Loss: Minimal Complications: None Procedural Ultrasound Guidance: Procedure Date: 04/20/2020 Indication: Arterial line insertion Attending: Dr. Troy Canales Provider: KHOI Recinos Artery Identified: YES Line confirmed in Artery with ultrasound: Yes Complications: NONE Patient tolerated procedure: WELL Coding CPT Codes Tubes, Drains, and Vasc Access - Tubes, Drains, and Vasc Access: [id number] Place Catheter In Artery ([id number]) Tubes, Drains, and Vasc Access - Tubes, Drains, and Vasc Access: [id number] Ultrasound Guidance For Vascular ([id number]) [facility] [place] Codes (Charges) Tubes, Drains, and Vasc Access Procedure 1: Tubes, Drains, and Vasc Access: [id number] Place Catheter In Artery Procedure 2: Tubes, Drains, and Vasc Access: [id number] Ultrasound Guidance For Vascular
[2020-04-20] MEDS: VASOPRESSIN 20 UNITS in 0.9 % SODIUM CHLORIDE 100 ML IV SCH ×2 (05:55→16:36)
[2020-04-20] MEDS ORDERED: HYDROCORTISONE SOD 100 MG in SYRINGE 0 ML IV SCH (06:00)
--- NOTE | 2020-04-20 06:37 | CT Scan Report ---
CT head/brain wo con CT DOSE: 537.48 mGy.cm HISTORY: elizabeth TECHNIQUE: Multiaxial CT images of the head were performed without the use of intravenous contrast. A dose lowering technique was utilized adhering to the principles of ALARA. Comparison: None Findings: Mild mucosal thickening of the maxillary sinuses The calvarium and skull base are intact. T he ventricles and sulci are within normal limits. There is no mass, hematoma, midline shift, or acute infarct. Mild age-related atrophy and chronic small vessel change. Impression: No acute intracranial abnormality. Mild mucosal thickening of the maxillary sinuses. ACT 112: Negative or not required by law. The above report was generated using voice recognition software. It may contain grammatical, syntax or spelling errors. Electronically signed by: Tano Michaud M.D. 04/20/2020 6:36 AM
[2020-04-20 07:27] LABS: BUN Creatinine Ratio 19.3 (10-20); Calcium 7.1 mg/dl (8.5-10.1); Creatinine Clr Calc Pharmacy 35.2 ml/min; Est GFR (African American) 39.1; Est GFR (Non-African American) 33.8; Magnesium 2.2 mg/dl (1.8-2.4); Phosphorus 4.4 mg/dl (2.5-4.9); Potassium 4.3 mmol/L (3.5-5.1)
[2020-04-20] MEDS: ALBUT/IPRATROP 3MG/0.5MG NEB 3 ML VIAL NEB SCH ×4 (07:30→19:54)
--- NOTE | 2020-04-20 07:43 | XRay Report ---
XR chest 1V portable HISTORY: Hypoxia. COMPARISON: Chest 04/19/2020. FINDINGS: There are low lung volumes. The heart is mildly enlarged. Right jugular Port-A-Cath termina karina at the superior cavoatrial junction. This remains unchanged. Epigastric surgical clips are again noted. There is diffuse interstitial and vascular thickening. This suggests mild congestive change. T his has slightly progressed. No pleural effusions. No pneumothorax. IMPRESSION: Cardiomegaly with slight progression of the pulmonary vascular congestion. ACT 112: Negative or not required by law. Electronically signed by: Noel Crenshaw M.D. 04/20/2020 7:42 AM
[2020-04-20] MEDS ORDERED: CALCIUM CHLORIDE 10% 1,000 MG in SODIUM CHLORIDE 0.9% 50 ML IV STA (07:52)
[2020-04-20] MEDS ORDERED: AZTREONAM 1,000 MG in DEXTROSE 5% 100 ML IV SCH (08:00)
[2020-04-20] MEDS: MULTIVITAMIN TAB PO SCH (08:20)
[2020-04-20] MEDS: PANCREAZE (LIPASE 16,800U) CAP PO SCH ×3 (08:21→18:12)
[2020-04-20] MEDS: DESIPRAMINE HCL 50 MG TAB PO SCH ×4 (08:21→20:43)
[2020-04-20] MEDS: PYRIDOXINE HCL 50 MG TAB PO SCH ×2 (08:22→20:45)
[2020-04-20] MEDS: PANTOprazole 40 MG TAB PO SCH ×2 (08:22→20:43)
[2020-04-20] MEDS: UMECLIDINIUM/VILANTEROL 62.5/25MCG 7 PUFFS/INHALER INH SCH (08:22)
[2020-04-20] MEDS: FLUTICASONE FUROATE 100MCG 14 PUFFS/INHALER INH SCH (08:23)
[2020-04-20] MEDS ORDERED: MIRABEGRON ER 25 MG TAB PO SCH (09:00)
[2020-04-20] MEDS ORDERED: ESCITALOPRAM OXALATE 20 MG TAB PO SCH (09:00)
[2020-04-20] MEDS ORDERED: NON-FORMULARY MEDICATION (Fluticasone-Umeclidin-Vilanter [Trelegy Ellipta] 1 PUFFS) INH SCH (09:00)
[2020-04-20] MEDS ORDERED: Nursing to Pharmacy Communication SCH ×2 (10:15→13:45)
[2020-04-20] MEDS ORDERED: PHARMACY CONSULT IN PROGRESS PRN (11:08)
[2020-04-20] MEDS ORDERED: CEFTAROLINE FOSAMIL ACETATE 400 MG in SODIUM CHLORIDE 0.9% 250 ML IV SCH (11:30)
[2020-04-20] MEDS: HYDROCORTISONE SOD 50 MG in SYRINGE 0 ML IV SCH ×2 (11:56→17:53)
[2020-04-20] MEDS: HEPARIN SOD 5,000 UNIT/0.5 ML VIAL SQ SCH ×2 (12:07→21:27)
--- NOTE | 2020-04-20 12:35 | XCELERA ---
[id number]
--- NOTE | 2020-04-20 13:09 | CT Scan Report ---
CT abd pelvis oral con only CLINICAL HISTORY: septic shock COMPARISON STUDY: 08/01/2015 FINDINGS: The patient was scanned following administration of dilute oral contrast. No intravenous co ntrast was administered. A dose reduction technique was utilized according to the principles of ALARA There is contrast within the distal esophagus possibly indicating reflux. There is significant respir atory motion artifact at the lung bases. There are left basilar opacities, atelectatic versus pneumon ia. No hepatic masses are visualized on this noncontrast examination. The patient appears be status post a prior cholecystectomy. No splenic masses are visualized. No pancreatic masses are visualized. Pancreas appears somewhat atrophic. No adrenal masses are visualized. There is right-sided nephrolithiasis including a 13 mm calculus within the renal pelvis. There is rig ht-sided hydronephrosis and hydroureter. There are several obstructing distal right ureteral calculi the largest of which measures 6 mm. There is a nonobstructing left renal calculus. There are dilated jejunal bowel loops. A definite transition zone is not visualized. This may represe nt an ileus. There is a ventral abdominal wall hernia. There is moderate fecal retention, possibly se condary to constipation There is no evidence of abdominal aortic aneurysm. There is no pathologic adenopathy. There is no free intraperitoneal air. There is a joint Cam catheter. There is air within the bladder likely iatrogenic. The uterus is surgically absent. There are scattered surgical clips within the pelvis. There are post surgical changes involving the stomach. There is right-sided sacroiliitis. IMPRESSION: 1. Motion compromised examination 2. Bilateral nephrolithiasis 3. Distal right ureteral calculi with secondary right-sided hydroureteronephrosis. In the setting of sepsis, emergent urological consultation is recommended 4. Left lower lobe pulmonary airspace opacities, atelectasis versus pneumonia 5. None specific proximal small bowel dilatation, possibly secondary to an ileus given the other find ings 6. Fecal retention. Clinical correlation with regards to constipation is recommended 7. Large ventral hernia ACT 112: Negative or not required by law. Electronically signed by: Yousuf Denny M.D. 04/20/2020 1:08 PM
[2020-04-20] MEDS: FLUDROCORTISONE ACETATE 0.1 MG TAB PO SCH (13:15)
--- NOTE | 2020-04-20 13:55 | Urology Consultation ---
Date of Consultation April 20, 2020 Assessment & Plan (1) Sepsis: Sepsis secondary to an obstructing right ureteral calc, hydronephrosis, and an infected right upper tract - plan for emergent intervention - cysto, right ureteral stent -Consent completed and placed on chartmove to the OR immediately -Continue supportive care History of Present Illness Attending Physician: Dee Mccullough, DO History of Present Illness 69y/o female with a multitude of chronic medical issues currently admitted to the ICU with septic shock - likely due to a urinary infection and obstructing right ureteral calculi. Bcx growing gram neg rods. UCx the same. Significant leukocytosis (18k), JAVI - b/l Cr around .6 CT demonstrates right hydro with a large renal stone and also several right distal ureteral stones Clinically ok for OR - aggressively resuscitated and stabilized upon arrival - continues to require pressors Allergies Allergy/AdvReac Type Severity Reaction Status Date / Time Penicillins Allergy Intermediate RASH ALL Verified 04/19/20 14:59 OVER UPPER BODY NO RESP SYMPTOMS piperacillin Allergy Intermediate RASH Verified 04/19/20 14:59 Sulfa (Sulfonamide Allergy Intermediate Generalized Verified 04/19/20 14:59 Antibiotics) Rash tazobactam Allergy Intermediate RASH ALL Verified 04/19/20 14:59 OVER UPPER BODY NO RESP SYMPTOMS bupropion Allergy Mild NERVOUS Verified 04/19/20 14:59 REACTION Cephalosporins Allergy Mild RASH, Verified 04/19/20 14:59 DIARRHEA levofloxacin Allergy Mild RASH,TURNED Verified 04/19/20 14:59 RED prochlorperazine Allergy Mild NERVOUS Verified 04/19/20 14:59 REACTION promethazine Allergy Mild UNKNOWN Verified 04/19/20 14:59 tobramycin Allergy Mild UNKNOWN Verified 04/19/20 14:59 bethanechol Allergy Unknown RASH, Verified 04/19/20 14:59 "FEELS FUNNY" clindamycin Allergy Unknown Unknown Verified 04/19/20 14:59 dipyridamole Allergy Unknown UNKNOWN Verified 04/19/20 14:59 droperidol Allergy Unknown Unknown Verified 04/19/20 14:59 morphine Allergy Unknown NERVOUS Verified 04/19/20 14:59 REACTION TO IT aspirin AdvReac Severe BLEEDING Verified 04/19/20 14:59 tedizolid AdvReac Severe GI SYMPTOMS Verified 04/19/20 14:59 ertapenem AdvReac Intermediate RASH Verified 04/19/20 14:59 cephalexin AdvReac Mild GI SYMPTOMS Verified 04/19/20 14:59 Home Medications Home Medications Medication Instructions Recorded Confirmed Type colesevelam 625 mg tablet 625 mg PO TID tab 06/17/18 04/19/20 History desipramine 50 mg tablet 50 mg PO TIDM tab 06/17/18 04/19/20 History escitalopram oxalate 20 mg tablet 20 mg PO QAM tab 06/17/18 04/19/20 History lorazepam 0.5 mg tablet 0.5 mg PO TID PRN tab 06/17/18 04/19/20 History montelukast 10 mg tablet 10 mg PO HS 06/17/18 04/19/20 History risperidone 3 mg tablet 3 mg PO HS tab 06/17/18 04/19/20 History Centrum Silver Women 1 tab PO DAILY 05/05/19 04/19/20 History Creon 4 cap PO TID 05/05/19 04/19/20 History Myrbetriq 50 mg PO QAM 05/05/19 04/19/20 History cholecalciferol (vitamin D3) 2,000 unit PO QDD 05/05/19 04/19/20 History [Vitamin D3] desipramine 100 mg PO HS 05/05/19 04/19/20 History diclofenac sodium 2 g TOPICAL DIRECTED 05/05/19 04/19/20 History ipratropium-albuterol 3 ml INHALATION Q4H PRN 05/05/19 04/19/20 History mupirocin 1 applic TOPICAL BID PRN 05/05/19 04/19/20 History pyridoxine (vitamin B6) [Vitamin 100 mg PO BID 05/05/19 04/19/20 History B-6] metoprolol tartrate 25 mg tablet 12.5 mg PO BID tab 05/17/19 04/19/20 History omeprazole magnesium 20 mg 20 mg PO BID tab 05/17/19 04/19/20 History tablet,delayed release albuterol sulfate 90 mcg/actuation 2 puffs INH Q4H PRN #1 ea 10/17/19 04/19/20 Rx breath activated powder inhaler fluticasone fur. 100 mcg-umeclid 1 puffs INH QAM #60 ea 12/12/19 04/19/20 Rx 62.5 mcg-vilant 25 mcg inhalat.powder ropinirole 0.25 mg tablet 0.25 mg PO HS 30 Days #30 tab 03/06/20 04/19/20 Rx furosemide [Lasix] 80 mg PO BID 03/30/20 04/19/20 History ibuprofen [Advil] 400 mg PO Q6H PRN 03/30/20 04/19/20 History oxycodone-acetaminophen 1 tab PO Q6H PRN 04/19/20 04/19/20 History potassium chloride [Klor-Con M20] 20 meq PO BID 04/19/20 04/19/20 History Patient History Medical History Abscess of skin of left wrist Chronic diastolic (congestive) heart failure (Chronic) follows w/ Dr. Otoole Chronic sinusitis Deep vein thrombosis RLE - 15-20 years ago - immobility - treated w/ AC. Depression Enterocutaneous fistula (Inactive) History of jejunostomy tube placement History of kidney stones Morbid obesity MRSA (methicillin resistant staph aureus) culture positive Left wrist Osteoarthritis Pancreatic insufficiency Peripheral neuropathy Port-A-Cath in place PUD (peptic ulcer disease) PVC (premature ventricular contraction) (Inactive) Short bowel syndrome (Chronic) Urinary leakage Wrist fracture, left Surgical History History of appendectomy History of cardiac cath 2-3 months ago - [place] - no stents History of cholecystectomy History of colonoscopy (~2015) History of esophagogastroduodenoscopy (EGD) (~2015) History of gastrointestinal surgery multiple History of joint replacement Rt thumb History of knee replacement procedure of right knee History of lithotripsy History of open reduction and internal fixation (ORIF) procedure LUE History of partial gastrectomy History of sinus surgery History of tonsillectomy and adenoidectomy History of total abdominal hysterectomy and bilateral salpingo-oophorectomy Family History Mother Family history of diabetes mellitus Sister Family history of diabetes mellitus Father Esophageal cancer Other Family history non-contributory No family history of adverse response to anesthesia Social History Preferred Language: Dominican Communication Ability: Effective Business Analysis Specialist Required: No Beliefs That Will Affect Care: None Current Living Situation: Alone Current Living Situation Comment: [facility] Feels Safe at Home: Yes Safety Concerns: Feels Safe At This Time Smoking Status: Never smoker Second Hand Exposure: Yes (parents smoke) ; Hx Alcohol Use: No Hx Substance Use: No Review of Systems Constitutional: + fever, + chills and + body aches; no fatigue Eyes: no worsening vision Ear, Nose, Mouth, Throat: no facial pain and no pain with swallowing Respiratory: no cough and no dyspnea Cardiovascular: no chest pain and no palpitations Gastrointestinal: + abdominal pain and + nausea; no vomiting Genitourinary: + dysuria and + urinary frequency; no difficulty urinating and no hematuria Musculoskeletal: + back pain Integumentary: no rash and no urticaria Neurologic: no gait abnormality and no unsteadiness Psychiatric: no behavioral changes and no depression Endocrine: no fatigue Physical Exam Constitutional: well developed and well nourished Really interactive, moderately ill-appearing Neck: neck nontender Respiratory: normal respiratory effort; no respiratory distress and does not use accessory muscles Cardiovascular: Rate/Rhythm: regular rate Vessels: radial pulses present Actively receiving pressors Gastrointestinal (Abdomen): Percussion/Palpation: + abdomen tender (Right flank) and abdomen soft; no guarding Notable midline hernia Musculoskeletal: Head/Neck/Chest: normocephalic and head atraumatic Extremities: extremities normal to inspection Skin: no rashes and no lesions Trauma: no evidence of skin trauma Prior grafting harvest sites from both legs Neurologic: awake; not obtunded Speech / Cognition: normal speech Motor/Sensory: no tremor Psychiatric: Orientation: alert and oriented x 3 Genitourinary: Right CVA tenderness, Cam in place with moderately cloudy urine Lymphatic: no lymphadenopathy Results & Data Vital Signs (Past 12 Hours) Vital Signs Temp Pulse Pulse Resp BP BP BP 04/20/20 13:04 37.4 C 85 17 108/62 04/20/20 12:00 37.4 C 87 20 108/80 04/20/20 11:04 104 H 32 H 04/20/20 11:00 37.5 C 88 24 115/69 04/20/20 10:00 37.7 C H 83 12 127/77 04/20/20 09:00 37.8 C H 82 14 119/70 04/20/20 08:00 38.3 C H 86 17 113/66 07/17/20 07:50 38.3 C H 86 18 04/20/20 07:40 38.3 C H 87 18 04/20/20 07:30 87 21 04/20/20 07:15 87 04/20/20 07:00 38.3 C H 86 17 106/63 04/20/20 06:50 38.3 C H 87 22 04/20/20 06:40 38.3 C H 86 20 04/20/20 06:30 38.2 C H 86 18 04/20/20 06:20 38.2 C H 86 17 04/20/20 06:10 38.2 C H 88 17 04/20/20 06:00 38.2 C H 89 17 108/64 04/20/20 05:55 38.2 C H 90 17 99/60 L 04/20/20 05:50 38.2 C H 90 17 99/60 L 04/20/20 05:45 38.2 C H 90 18 99/59 L 04/20/20 05:40 38.2 C H 89 18 96/59 L 04/20/20 05:35 38.2 C H 89 19 100/56 L 04/20/20 05:30 38.2 C H 88 17 95/62 L 04/20/20 05:25 38.2 C H 87 21 87/55 L 04/20/20 05:20 38.2 C H 87 18 87/53 L 04/20/20 05:15 38.2 C H 87 16 89/53 L 04/20/20 05:14 86 18 04/20/20 05:10 38.2 C H 87 18 85/50 L 04/20/20 05:05 38.2 C H 85 19 75/50 L 04/20/20 05:00 38.2 C H 84 18 65/45 L 04/20/20 04:46 84 19 61/37 L 04/20/20 04:45 84 18 70/50 L 04/20/20 04:40 85 23 04/20/20 03:43 37.3 C 85 20 50/34 L 04/20/20 03:05 86 18 04/20/20 02:08 69/54 L 04/20/20 01:57 37.5 C 92 H 28 H 65/49 L Pulse Ox 04/20/20 13:04 90 04/20/20 12:00 92 04/20/20 11:04 90 04/20/20 11:00 94 04/20/20 10:00 90 04/20/20 09:00 95 04/20/20 08:00 97 04/20/20 07:50 97 04/20/20 07:40 97 04/20/20 07:30 98 04/20/20 07:15 04/20/20 07:00 98 04/20/20 06:50 97 04/20/20 06:40 97 04/20/20 06:30 97 04/20/20 06:20 99 04/20/20 06:10 100 04/20/20 06:00 100 04/20/20 05:55 100 04/20/20 05:50 100 04/20/20 05:45 100 04/20/20 05:40 100 04/20/20 05:35 100 04/20/20 05:30 100 04/20/20 05:25 99 04/20/20 05:20 99 04/20/20 05:15 99 04/20/20 05:14 99 04/20/20 05:10 98 04/20/20 05:05 97 04/20/20 05:00 98 04/20/20 04:46 97 04/20/20 04:45 95 04/20/20 04:40 96 04/20/20 03:43 96 04/20/20 03:05 93 04/20/20 02:08 04/20/20 01:57 93 PG Care Time/CCT Total # of Minutes Spent Total Time Spent with Patient: Total time spent is greater than 50% in coordination of care (as documented) at patient's floor/unit and/or counseling patient: Coding Level of Care Code 15577 Inpt Consult Level 4 Diagnoses Sepsis A41.9
[2020-04-20] MEDS ORDERED: MIDAZOLAM HCL 1 MG/ML 2ML VIAL ONE (14:03)
[2020-04-20] MEDS ORDERED: PROPOFOL IV EMULSION 10 MG/ML 20 ML VIAL IV ONE (14:04)
[2020-04-20] MEDS ORDERED: ONDANSETRON INJ 2 MG/ML 2 ML VIAL ONE (14:04)
--- NOTE | 2020-04-20 14:06 | Anesthesiology Consultation ---
Date of Service April 20, 2020 History Surgery Operation Date: 04/20/20 14:00 Proposed Procedures p Cystoscopy, Right Stent Placement - Meng Resendiz MD Height/Weight Height: 5 ft 1 in Weight: 88.6 kg Allergies Allergy/AdvReac Type Severity Reaction Status Date / Time Penicillins Allergy Intermediate RASH ALL Verified 04/19/20 14:59 OVER UPPER BODY NO RESP SYMPTOMS piperacillin Allergy Intermediate RASH Verified 04/19/20 14:59 Sulfa (Sulfonamide Allergy Intermediate Generalized Verified 04/19/20 14:59 Antibiotics) Rash tazobactam Allergy Intermediate RASH ALL Verified 04/19/20 14:59 OVER UPPER BODY NO RESP SYMPTOMS bupropion Allergy Mild NERVOUS Verified 04/19/20 14:59 REACTION Cephalosporins Allergy Mild RASH, Verified 04/19/20 14:59 DIARRHEA levofloxacin Allergy Mild RASH,TURNED Verified 04/19/20 14:59 RED prochlorperazine Allergy Mild NERVOUS Verified 04/19/20 14:59 REACTION promethazine Allergy Mild UNKNOWN Verified 04/19/20 14:59 tobramycin Allergy Mild UNKNOWN Verified 04/19/20 14:59 bethanechol Allergy Unknown RASH, Verified 04/19/20 14:59 "FEELS FUNNY" clindamycin Allergy Unknown Unknown Verified 04/19/20 14:59 dipyridamole Allergy Unknown UNKNOWN Verified 04/19/20 14:59 droperidol Allergy Unknown Unknown Verified 04/19/20 14:59 morphine Allergy Unknown NERVOUS Verified 04/19/20 14:59 REACTION TO IT aspirin AdvReac Severe BLEEDING Verified 04/19/20 14:59 tedizolid AdvReac Severe GI SYMPTOMS Verified 04/19/20 14:59 ertapenem AdvReac Intermediate RASH Verified 04/19/20 14:59 cephalexin AdvReac Mild GI SYMPTOMS Verified 04/19/20 14:59 Medications Home Medications Medication Instructions Recorded Confirmed Last Taken colesevelam 625 mg tablet 625 mg PO TID tab 06/17/18 04/19/20 04/18/20 desipramine 50 mg tablet 50 mg PO TIDM tab 06/17/18 04/19/20 04/18/20 escitalopram oxalate 20 mg tablet 20 mg PO QAM tab 06/17/18 04/19/20 04/18/20 lorazepam 0.5 mg tablet 0.5 mg PO TID PRN tab 06/17/18 04/19/20 04/17/20 montelukast 10 mg tablet 10 mg PO HS 06/17/18 04/19/20 04/18/20 risperidone 3 mg tablet 3 mg PO HS tab 06/17/18 04/19/20 04/18/20 Centrum Silver Women 1 tab PO DAILY 05/05/19 04/19/20 04/18/20 Creon 4 cap PO TID 05/05/19 04/19/20 04/18/20 Myrbetriq 50 mg PO QAM 05/05/19 04/19/20 04/18/20 cholecalciferol (vitamin D3) 2,000 unit PO QDD 05/05/19 04/19/20 04/18/20 [Vitamin D3] desipramine 100 mg PO HS 05/05/19 04/19/20 04/18/20 diclofenac sodium 2 g TOPICAL DIRECTED 05/05/19 04/19/20 05/05/19 ipratropium-albuterol 3 ml INHALATION Q4H PRN 05/05/19 04/19/20 04/17/20 mupirocin 1 applic TOPICAL BID PRN 05/05/19 04/19/20 04/18/20 pyridoxine (vitamin B6) [Vitamin 100 mg PO BID 05/05/19 04/19/20 04/18/20 B-6] metoprolol tartrate 25 mg tablet 12.5 mg PO BID tab 05/17/19 04/19/20 04/18/20 omeprazole magnesium 20 mg 20 mg PO BID tab 05/17/19 04/19/20 04/18/20 tablet,delayed release albuterol sulfate 90 mcg/actuation 2 puffs INH Q4H PRN #1 ea 10/17/19 04/19/20 10/26/19 breath activated powder inhaler fluticasone fur. 100 mcg-umeclid 1 puffs INH QAM #60 ea 12/12/19 04/19/20 04/18/20 62.5 mcg-vilant 25 mcg inhalat.powder ropinirole 0.25 mg tablet 0.25 mg PO HS 30 Days #30 tab 03/06/20 04/19/20 04/18/20 furosemide [Lasix] 80 mg PO BID 03/30/20 04/19/2004/18/20 ibuprofen [Advil] 400 mg PO Q6H PRN 03/30/20 04/19/20 04/18/20 21:00 400 mg oxycodone-acetaminophen 1 tab PO Q6H PRN 04/19/20 04/19/20 Unknown potassium chloride [Klor-Con M20] 20 meq PO BID 04/19/20 04/19/20 04/18/20 Active Medications Generic Name Dose Route Start Last Admin Trade Name Freq PRN Reason Stop Dose Admin Acetaminophen 650 mg 04/19/20 19:19 04/19/20 21:12 Tylenol PO 05/19/20 19:18 650 mg Q4H PRN Administration Pain or Fever Albuterol 3 ml 04/19/20 19:19 04/20/20 10:47 Duoneb NEB 05/19/20 19:18 3 ml QIDR CATE Administration Lipase/Protease/Amylase 5 cap 04/20/20 08:00 04/20/20 13:16 Pancreaze [id number] Unit PO 05/20/20 07:59 5 cap TIDM CATE Administration Desipramine HCl 50 mg 04/20/20 08:00 04/20/20 13:16 Norpramin PO 05/20/20 07:59 50 mg TIDM CATE Administration Desipramine HCl 100 mg 04/19/20 21:00 04/19/20 21:51 Norpramin PO 05/19/20 20:59 100 mg HS CATE Administration Fludrocortisone Acetate 0.05 mg 04/20/20 11:30 04/20/20 13:15 Florinef PO 05/20/20 11:29 0.05 mg QAM CATE Administration Fluticasone Furoate 1 puffs 04/20/20 09:00 04/20/20 08:23 Arnuity Ellipta 100mcg INH 05/20/20 08:59 1 puffs QAM CATE Administration Heparin Sodium (Porcine) 5,000 units 04/20/20 11:30 04/20/20 12:07 Heparin Sodium (Porcine) SQ 05/20/20 11:29 5,000 units Q12 CATE Administration Norepinephrine Bitartrate 8 mg 508 mls @ 6.751 mls/hr 04/20/20 04:30 04/20/20 13:36 / Dextrose IV 05/20/20 04:29 Not Given .Q24H CATE Protocol 0.02 MCG/KG/MIN Vasopressin 20 units/ Sodium 101 mls @ 0 mls/hr 04/20/20 05:45 04/20/20 13:45 Chloride IV 05/20/20 05:44 0 unit/min .Q0M CATE 0 mls/hr Infusion 0 UNIT/MIN Hydrocortisone Sodium 1 mls @ 2 mls/min 04/20/20 12:00 04/20/20 11:56 Succinate 50 mg/ Syringe IV 05/20/20 11:59 2 mls/min Q6H CATE Administration Ceftaroline Fosamil 400 mg/ 263.3333 mls @ 270 mls/hr 04/20/20 11:30 04/20/20 13:15 Sodium Chloride IV 04/27/20 11:29 Infused Q12H CATE Infusion Montelukast Sodium 10 mg 04/19/20 21:00 04/19/20 21:14 Singulair PO 05/19/20 20:59 10 mg HS CATE Administration Multivitamins 1 tab 04/20/20 09:00 04/20/20 08:20 Multivitamin Tab PO 05/20/20 08:59 1 tab DAILY CATE Administration Pantoprazole Sodium 40 mg 04/19/20 21:00 04/20/20 08:22 Protonix PO 05/19/20 20:59 40 mg BID CATE Administration Pyridoxine HCl 100 mg 04/19/20 21:00 04/20/20 08:22 Vitamin B-6 PO 05/19/20 20:59 100 mg BID CATE Administration Risperidone 3 mg 04/19/20 21:00 04/19/20 21:14 Risperdal PO 05/19/20 20:59 3 mg HS CATE Administration Ropinirole HCl 0.25 mg 04/19/20 21:00 04/19/20 21:51 Requip PO 05/19/20 20:59 0.25 mg HS CATE Administration Umeclidinium/Vilanterol 1 puffs 04/20/20 09:00 04/20/20 08:22 Anoro Ellipta 62.5/25 Mcg Inh INH 05/20/20 08:59 1 puffs DAILY CATE Administration Past Medical History Medical History Abscess of skin of left wrist Chronic diastolic (congestive) heart failure (Chronic) follows w/ Dr. Otoole Chronic sinusitis Deep vein thrombosis RLE - 15-20 years ago - immobility - treated w/ AC. Depression Enterocutaneous fistula (Inactive) History of jejunostomy tube placement History of kidney stones Morbid obesity MRSA (methicillin resistant staph aureus) culture positive Left wrist Osteoarthritis Pancreatic insufficiency Peripheral neuropathy Port-A-Cath in place PUD (peptic ulcer disease) PVC (premature ventricular contraction) (Inactive) Short bowel syndrome (Chronic) Urinary leakage Wrist fracture, left Past Family History Family History Mother Family history of diabetes mellitus Sister Family history of diabetes mellitus Father Esophageal cancer Other Family history non-contributory No family history of adverse response to anesthesia Past Surgical History Surgical History History of appendectomy History of cardiac cath 2-3 months ago - [place] - no stents History of cholecystectomy History of colonoscopy (~2015) History of esophagogastroduodenoscopy (EGD) (~2015) History of gastrointestinal surgery multiple History of joint replacement Rt thumb History of knee replacement procedure of right knee History of lithotripsy History of open reduction and internal fixation (ORIF) procedure LUE History of partial gastrectomy History of sinus surgery History of tonsillectomy and adenoidectomy History of total abdominal hysterectomy and bilateral salpingo-oophorectomy Social History Smoking Status: Never smoker Hx Alcohol Use: No Alcohol type: hard liquor alcohol intake frequency: holidays/special occasions only Hx Substance Use: No substance use type: does not use Physical Exam Vital Signs Last Vital Signs Temp 37.4 C 04/20/20 13:04 Pulse 85 04/20/20 13:04 Resp 17 04/20/20 13:04 BP 108/62 04/20/20 13:04 Pulse Ox 90 04/20/20 13:04 Testing Laboratory Results 04/20/20 01:51 04/20/20 06:14 PT 11.7 Seconds (9.0-12.0) 04/19/20 13:30 INR 1.1 (0.9-1.1) 04/19/20 13:30 APTT 123.8 Seconds (21.0-31.0) H* 04/20/20 01:51 Urine Color Yellow 04/19/20 13:30 Urine Appearance Clear (Clear) 04/19/20 13:30 Urine pH 5.0 (4.5-7.5) 04/19/20 13:30 Ur Specific [place] 1.014 (1.000-1.030) 04/19/20 13:30 Urine Protein Negative (Negative) 04/19/20 13:30 Urine Glucose (UA) Negative (Negative) 04/19/20 13:30 Urine Ketones Negative (Negative) 04/19/20 13:30 Urine Nitrite Positive (Negative) A 04/19/20 13:30 Ur Leukocyte Esterase Trace (Negative) H 04/19/20 13:30 Urine WBC (Auto) 1-5 /hpf (0-5) 04/19/20 13:30 Urine RBC (Auto) 0-4 /hpf (0-4) 04/19/20 13:30 U Hyaline Cast (Auto) 1-5 /lpf (0-5) 04/19/20 13:30 U Epithel Cells (Auto) 10-20 /lpf (0-5) H 04/19/20 13:30 Urine Bacteria (Auto) 2+ (Negative) H 04/19/20 13:30 04/20/20 00:08 Aerobic Blood Culture - Preliminary Blood Gram negative bacilli 04/19/20 13:30 Urine Culture - Preliminary Urine,Clean Catch Gram negative bacilli 04/20/20 00:17 Aerobic Blood Culture - Preliminary Blood Gram negative bacilli 04/20/20 11:55 POC Glucose (other) 175 H
--- NOTE | 2020-04-20 15:03 | Operative Report ---
[facility] Post Operative Report Pre & Post Diagnosis Operation Date: 04/20/20 14:00 Preop diagnosis: Sepsis and obstructing right ureteral stone Postop diagnosis sepsis and obstructing right ureteral stone I identified the patient and participated in the time-out.: Yes Procedure Operation Date: 04/20/20 14:00 Procedure: Cystoscopy, right ureteral stent placement6 [place] by 24 cm Surgeon Rohith Resendiz MD Electric Shovel Operator none Estimated Blood Loss 0 Findings Consistent with Post-Op Diagnosis Specimens none Description of Procedure The patient was identified in the preoperative holding area, appropriate informed consents were reviewed and completed and the patient was transferred to the operative suite. Upon arrival, light sedation was administered and the patient was placed in dorsal lithotomy position and prepped and draped in sterile fashion. She did not receive additional antibiotics that she has been on broad-spectrum antibiotics on the floor. To begin the case I passed a 22 [place] cystoscope with 30 degree lens. Inspection revealed healthy appearing bladder mucosa with mild debris in the dependent portion of the bladder. I irrigated this debris out of the bladder and turned my attention of the right ureteral orifice. I cannulated this with a 5 [place] open-ended catheter and a sensor wire. Immediately upon advancing the wire beyond the stone I had a discharge of purulent urine from the right collecting system. I advanced the wire to the level of the kidney and subsequently placed a 6 [place] by 24 cm double-J ureteral stent. There was excellent drainage through and around the stent after placement. There was good curl in the kidney as well as the bladder. A new Cam catheter was inserted and the case was concluded. She was taken to the recovery room in stable condition. There were no complications. I attest to the content of the Intraoperative Record and any orders documented therein. Any exceptions are noted below.
[2020-04-20] MEDS ORDERED: ONDANSETRON INJ 2 MG/ML 2 ML VIAL IV PRN (15:36)
[2020-04-20] MEDS ORDERED: ePHEDrine sulfate 50 MG/ML AMP IV PRN (15:36)
[2020-04-20] MEDS ORDERED: ATROPINE SULFATE 0.1 MG/ML 10ML SYR IV PRN (15:36)
[2020-04-20] MEDS ORDERED: fentaNYL citrate 100 MCG/2 ML VIAL IV PRN (15:36)
--- NOTE | 2020-04-20 15:42 | Anesthesiology Progress Note ---
Date of Service April 20, 2020 Anesthesia Post Procedure Vital Signs Vital Signs: Temp Pulse Pulse Resp BP BP BP 04/20/20 15:20 82 18 95/70 L 04/20/20 15:10 83 18 87/59 L 04/20/20 15:01 36.7 C 87 18 89/65 L 04/20/20 14:21 36.6 C 86 18 110/63 04/20/20 14:00 37.2 C 84 16 89/58 L 04/20/20 13:04 37.4 C 85 17 108/62 04/20/20 12:00 37.4 C 87 20 108/80 04/20/20 11:04 104 H 32 H 04/20/20 11:00 37.5 C 88 24 115/69 04/20/20 10:00 37.7 C H 83 12 127/77 04/20/20 09:00 37.8 C H 82 14 119/70 04/20/20 08:00 38.3 C H 86 17 113/66 04/20/20 07:50 38.3 C H 86 18 04/20/20 07:40 38.3 C H 87 18 04/20/20 07:30 87 21 04/20/20 07:15 87 04/20/20 07:00 38.3 C H 86 17 106/63 04/20/20 06:50 38.3 C H 87 22 04/20/20 06:40 38.3 C H 86 20 04/20/20 06:30 38.2 C H 86 18 04/20/20 06:20 38.2 C H 86 17 04/20/20 06:10 38.2 C H 88 17 04/20/20 06:00 38.2 C H 89 17 108/64 04/20/20 05:55 38.2 C H 90 17 99/60 L 04/20/20 05:50 38.2 C H 90 17 99/60 L 04/20/20 05:45 38.2 C H 90 18 99/59 L 04/20/20 05:40 38.2 C H 89 18 96/59 L 04/20/20 05:35 38.2 C H 89 19 100/56 L 04/20/20 05:30 38.2 C H 88 17 95/62 L 04/20/20 05:25 38.2 C H 87 21 87/55 L 04/20/20 05:20 38.2 C H 87 18 87/53 L 04/20/20 05:15 38.2 C H 87 16 89/53 L 04/20/20 05:14 86 18 04/20/20 05:10 38.2 C H 87 18 85/50 L 04/20/20 05:05 38.2 C H 85 19 75/50 L 04/20/20 05:00 38.2 C H 84 18 65/45 L 04/20/20 04:46 84 19 61/37 L 04/20/20 04:45 84 18 70/50 L 04/20/20 04:40 85 23 04/20/20 03:43 37.3 C 85 20 50/34 L 04/20/20 03:05 86 18 04/20/20 02:08 69/54 L 04/20/20 01:57 37.5 C 92 H 28 H 65/49 L 04/20/20 01:35 101 H 04/20/20 00:41 90 84/52 L 04/20/20 00:40 38.3 C H 04/19/20 23:00 36.9 C 93 H 18 76/51 L 71/46 L 04/19/20 21:09 36.9 C 22 109/58 L 04/19/20 19:44 77 18 04/19/20 19:31 37.1 C 98 H 20 99/63 L 04/19/20 19:18 98 H 04/19/20 17:48 95 H 27 H 04/19/20 17:30 96 H 28 H 107/52 L 04/19/20 17:05 99 H 18 04/19/20 17:00 99 H 31 H 99/41 L 04/19/20 16:50 103 H 28 H 100/71 04/19/20 16:00 100 H 28 H 92/50 L Pulse Ox 04/20/20 15:20 100 04/20/20 15:10 100 04/20/20 15:01 98 04/20/20 14:21 91 04/20/20 14:00 91 04/20/20 13:04 90 04/20/20 12:00 92 04/20/20 11:04 90 04/20/20 11:00 94 04/20/20 10:00 90 04/20/20 09:00 95 04/20/20 08:00 97 04/20/20 07:50 97 04/20/20 07:40 97 04/20/20 07:30 98 04/20/20 07:15 04/20/20 07:00 98 04/20/20 06:50 97 04/20/20 06:40 97 04/20/20 06:30 97 04/20/20 06:20 99 04/20/20 06:10 100 04/20/20 06:00 100 04/20/20 05:55 100 04/20/20 05:50 100 04/20/20 05:45 100 04/20/20 05:40 100 04/20/20 05:35 100 04/20/20 05:30 100 04/20/20 05:25 99 04/20/20 05:20 99 04/20/20 05:15 99 04/20/20 05:14 99 04/20/20 05:10 98 04/20/20 05:05 97 04/20/20 05:00 98 04/20/20 04:46 97 04/20/20 04:45 95 04/20/20 04:40 96 04/20/20 03:43 96 04/20/20 03:05 93 04/20/20 02:08 04/20/20 01:57 93 04/20/20 01:35 04/20/20 00:41 04/20/20 00:40 04/19/20 23:00 99 04/19/20 21:09 96 04/19/20 19:44 93 04/19/20 19:31 93 04/19/20 19:18 04/19/20 17:48 95 04/19/20 17:30 97 04/19/20 17:05 96 04/19/20 17:00 97 04/19/20 16:50 92 04/19/20 16:00 97 Pain Intensity Head: Pain Intensity: 2 Transfer of Care Handoff Completed per policy Notes Mental Status: alert / awake / arousable and participated in evaluation Patient Amnestic to Procedure: Yes Nausea / Vomiting: adequately controlled Pain: adequately controlled Airway Patency, RR, SpO2: stable & adequate BP & HR: stable & adequate Hydration State: stable & adequate Anesthetic Complications: no major complications apparent and Pt Satisfied with anesthetic care Notes: The patient has a complex medical history. She was given a total of 2mg IV versed and 20mg IV propofol for the procedure. Per Chantel, the [employer], at the end of the procedure she noted some green bile like secretions in the patient's mo uth which she immediately suctioned. Per Chantel, it did not appear that the patient aspirated as she did not cough or drop her oxygen saturation. The patient was transported to PACU where she remained hemodynamically stable with no complaints.
--- NOTE | 2020-04-20 16:26 | Fluoroscopy Report ---
FL KUB HISTORY: 69 years-old Female RT STENT placement of a right ureteral stent COMPARISON: CT abdomen pelvis 04/20/2020 TECHNIQUE: One spot fluoroscopic image of the abdominal right upper quadrant was obtained utilizing 3 .1 seconds fluoroscopy time FINDINGS: Proximal portion of a right ureteral stent appears to be in satisfactory positioning. The distal port ion of the stent is not imaged. IMPRESSION: Fluoroscopic assistance as above. Please see procedural report for further details. ACT 112: Negative or not required by law. The above report was generated using voice recognition software. It may contain grammatical, syntax o r spelling errors. Electronically signed by: Ernesto Kirby M.D. 04/20/2020 4:25 PM
[2020-04-20] MEDS ORDERED: CHOLECALCIFEROL 1,000 UNITS 25 MCG TAB PO SCH (16:30)
[2020-04-20] MEDS: NORMOSOL-R 1,000 ML IV SCH (17:00)
--- NOTE | 2020-04-20 19:19 | Hospitalist Progress Note ---
Date of Service April 20, 2020 Assessment & Plan (1) Sepsis: septic shock 2/2 obstructive uropathy with infection present. She has undergone a procedure for source control and will hopefully be weaned off her current pressor therapy in the next 24 hours. Cont broad spectrum abx and stress dose steroids per ICU team. (2) Shock: plan as above. (3) Obstructive uropathy: s/p ureteral stent by Urology placed today. Good drainage achieved during the procedure. (4) Acute UTI: abx and ureteral stent placement. (5) Hypoxia: Initially short of breath and after a recent left greater saphenous cyanoacrylate adhesive procedure with endovenous ablation for chronic venous insufficiency. As a result a bilateral venous doppler was performed revealing a ? DVT in the left leg. She was started on a heparin drip and PE was presumed, but no CT chest wihto contrast could be performed in the setting of renal insufficiency. She was started on cefazolin for presumed UTI. (6) JAVI (acute kidney injury): worsened renal function in setting of sepsis syndrome. Monitor after resuscitation efforts. (7) Chronic venous insufficiency: S/P left greater saphenous vein ablation on 04/18/[address] Otoole (8) Complex sleep apnea syndrome: Bipap HS (9) Depression: Continue escitalopram, risperidone (10) DVT prophylaxis: heparin Conditional Code-Ok to intubate, no CPR Dispo-cont ICU level care. Dee Mccullough DO [facility] Hospitalist Admission and Anticipated Discharge Date Admission Date: April 19, 2020 Subjective 69 yo F presented with SOB and overnight became septic likely from infected urine and was transferred into the ICU She was found to have a large obstructing right ureteral stone on CT a/p. Throughout the day she has required pressor support. Urology took her for an emergent cystoscopy and placed a stent draining the purulent area around the distal right ureteral obstructing stones. She is now recovering in the ICU, is somnolent and unarousable from anesthesia, but is not intubated. She is still on Levophed. Review of Systems Review of Systems: Unobtainable due to cognitive status Physical Exam Physical Exam: CONSTITUTIONAL: WNWD, vitals as above, somnolent, NAD EYES: closed ENT: MMM RESPIRATORY: mild crackles heard throughout, worse on the right side. CARDIOVASCULAR: regular rate and rhythm, S1 and 2 heard without murmurs, gallops or rubs, no JVD, no peripheral edema GASTROINTESTINAL: soft, ventral hernias present with prior surgical scars present, slightly distended to palpation but this seems to be more from the excessive scarring and hernias that area present. MUSCULOSKELETAL: head is normocephalic and atraumatic, unable to assess as she is somnolent SKIN: warm and dry NEUROLOGIC: somnolent Results & Data Results & Data ([facility]) Vital Signs (Past 12 Hours) Vital Signs Temp Pulse Pulse Resp BP BP Pulse Ox 04/20/20 18:00 84 14 98/52 L 95 04/20/20 17:40 87 15 96 04/20/20 17:11 86 16 86/50 L 97 04/20/20 17:10 84 17 97 04/20/20 17:00 85 14 97 04/20/20 16:50 86 12 98 04/20/20 16:45 84 04/20/20 16:40 84 12 97 04/20/20 16:30 84 12 97 04/20/20 16:20 84 13 97 04/20/20 16:10 84 12 97 04/20/20 16:00 85 12 93/60 L 97 04/20/20 15:50 83 25 H 99 04/20/20 15:47 84 24 98 04/20/20 15:45 36.4 C L 83 21 89/53 L 97 04/20/20 15:20 82 18 95/70 L 100 04/20/20 15:10 83 18 87/59 L 100 04/20/20 15:01 36.7 C 87 18 89/65 L 98 04/20/20 14:21 36.6 C 86 18 110/63 91 04/20/20 14:00 37.2 C 84 16 89/58 L 91 04/20/20 13:04 37.4 C 85 17 108/62 90 04/20/20 12:00 37.4 C 87 20 108/80 92 04/20/20 11:04 104 H 32 H 90 04/20/20 11:00 37.5 C 88 24 115/69 94 04/20/20 10:00 37.7 C H 83 12 127/77 90 04/20/20 09:00 37.8 C H 82 14 119/70 95 04/20/20 08:00 38.3 C H 86 17 113/66 97 04/20/20 07:50 38.3 C H 86 18 97 04/20/20 07:40 38.3 C H 87 18 97 04/20/20 07:30 87 21 98 Laboratory Results Short CBC 04/20/20 Range/Units 01:51 WBC 18.51 H (4.8-10.8) K/uL Hgb 10.8 L (12.0-16.0) g/dL Hct 31.7 L (37-47) % Plt Count 108 L (130-400) K/uL BMP 04/20/20 04/20/20 04/20/20 00:08 01:51 06:14 Sodium 139 D 137 135 L Potassium 3.0 L 3.7 D 4.3 D Chloride 107 109 H 108 H Carbon Dioxide 20 L 18 L 19 L BUN 27 H 27 H 30 H Creatinine 1.34 H 1.46 H 1.57 H Glucose 98 120 H 151 H Calcium 6.9 L 6.8 L 7.1 L Cardiac Enzymes 04/20/20 04/20/20 Range/Units 01:51 06:14 Troponin I 0.047 H* 0.064 H* (0-0.045) ng/ml Diagnostic Findings CT abd pelvis oral con only CLINICAL HISTORY: septic shock COMPARISON STUDY: 08/01/2015 FINDINGS: The patient was scanned following administration of dilute oral contrast. No intravenous contrast was administered. A dose reduction technique was utilized according to the principles of ALARA There is contrast within the distal esophagus possibly indicating reflux. There is significant respiratory motion artifact at the lung bases. There are left basilar opacities, atelectatic versus pneumonia. No hepatic masses are visualized on this noncontrast examination. The patient appears be status post a prior cholecystectomy. No splenic masses are visualized. No pancreatic masses are visualized. Pancreas appears somewhat atrophic. No adrenal masses are visualized. There is right-sided nephrolithiasis including a 13 mm calculus within the renal pelvis. There is right-sided hydronephrosis and hydroureter. There are several obstructing distal right ureteral calculi the largest of which measures 6 mm. There is a nonobstructing left renal calculus. There are dilated jejunal bowel loops. A definite transition zone is not visualized. This may represent an ileus. There is a ventral abdominal wall hernia. There is moderate fecal retention, possibly secondary to constipation There is no evidence of abdominal aortic aneurysm. There is no pathologic adenopathy. There is no free intraperitoneal air. There is a joint Cam catheter. There is air within the bladder likely iatrogenic. The uterus is surgically absent. There are scattered surgical clips within the pelvis. There are postsurgical changes involving the stomach. There is right- sided sacroiliitis. IMPRESSION: 1. Motion compromised examination 2. Bilateral nephrolithiasis 3. Distal right ureteral calculi with secondary right-sided hydroureteronephrosis. In the setting of sepsis, emergent urological consultation is recommended 4. Left lower lobe pulmonary airspace opacities, atelectasis versus pneumonia 5. None specific proximal small bowel dilatation, possibly secondary to an ileus given the other findings 6. Fecal retention. Clinical correlation with regards to constipation is recommended 7. Large ventral hernia Medications Administered Current Inpatient Medications Acetaminophen (Tylenol) 650 mg PO Q4H PRN PRN Reason: Pain or Fever Stop: 05/19/20 19:18 Last Admin: 04/19/20 21:12 Dose: 650 mg Documented by: Albuterol (Duoneb) 3 ml NEB QIDR [facility] Stop: 05/19/20 19:18 Last Admin: 04/20/20 15:43 Dose: 3 ml Documented by: Lipase/Protease/Amylase (Pancreaze [id number] Unit) 5 cap PO TIDM [facility] Stop: 05/20/20 07:59 Last Admin: 04/20/20 18:12 Dose: Not Given Documented by: Atropine Sulfate (Atropine Sulfate) 0.5 mg IV Q1M PRN PRN Reason: PACU Use-HR<40 &/or Bradycardi Stop: 04/20/20 23:36 Desipramine HCl (Norpramin) 50 mg PO TIDM [facility] Stop: 05/20/20 07:59 Last Admin: 04/20/20 18:12 Dose: Not Given Documented by: Desipramine HCl (Norpramin) 100 mg PO HS [facility] Stop: 05/19/20 20:59 Last Admin: 04/19/20 21:51 Dose: 100 mg Documented by: Ephedrine Sulfate (Ephedrine Sulfate) 5 mg IV Q5M PRN PRN Reason: PACU Use Only-SBP<90 mmHg Stop: 04/20/20 23:36 Fentanyl Citrate (Fentanyl Citrate) 25 mcg IV Q5M PRN PRN Reason: PACU Use Only-Pain Stop: 04/20/20 23:36 Fludrocortisone Acetate (Florinef) 0.05 mg PO QAM [facility] Stop: 05/20/20 11:29 Last Admin: 04/20/20 13:15 Dose: 0.05 mg Documented by: Fluticasone Furoate (Arnuity Ellipta 100mcg) 1 puffs INH QAM [facility] Stop: 05/20/20 08:59 Last Admin: 04/20/20 08:23 Dose: 1 puffs Documented by: Heparin Sodium (Porcine) (Heparin Sodium (Porcine)) 5,000 units SQ Q12 [facility] Stop: 05/20/20 11:29 Last Admin: 04/20/20 12:07 Dose: 5,000 units Documented by: Norepinephrine Bitartrate 8 mg (/ Dextrose) 508 mls @ 13.503 mls/hr IV .Q24H [facility]; Protocol Stop: 05/20/20 04:29 Last Titration: 04/20/20 16:16 Dose: 0.04 mcg/kg/min, 13.5 mls/hr Documented by: Vasopressin 20 units/ Sodium (Chloride) 101 mls @ 0 mls/hr IV .Q0M [facility] Stop: 05/20/20 05:44 Last Admin: 04/20/20 16:36 Dose: Not Given Documented by: Hydrocortisone Sodium (Succinate 50 mg/ Syringe) 1 mls @ 2 mls/min IV Q6H [facility] Stop: 05/20/20 11:59 Last Admin: 04/20/20 17:53 Dose: 2 mls/min Documented by: Ceftriaxone Sodium 2,000 mg/ (Dextrose) 70 mls @ 140 mls/hr IV Q24H [facility] Stop: 04/30/20 22:59 Parenteral Electrolytes (Normosol-R) 1,000 mls @ 60 mls/hr IV .[id number] [facility] Stop: 05/20/20 16:59 Last Admin: 04/20/20 17:00 Dose: 60 mls/hr Documented by: Miscellaneous (I[facility] Protocol For Hyperglycemia) 1 ea N/A PRN PRN; Protocol PRN Reason: Hyperglycemia Protocol Stop: 04/22/20 04:46 Montelukast Sodium (Singulair) 10 mg PO HS [facility] Stop: 05/19/20 20:59 Last Admin: 04/19/20 21:14 Dose: 10 mg Documented by: Multivitamins (Multivitamin Tab) 1 tab PO DAILY [facility] Stop: 05/20/20 08:59 Last Admin: 04/20/20 08:20 Dose: 1 tab Documented by: Ondansetron HCl (Zofran) 4 mg IV ONCE PRN PRN Reason: PACU Use Only-Nausea/Vomiting Stop: 04/20/20 23:36 Oxycodone HCl (Roxicodone Immediate Rel) 5 mg PO Q4H PRN PRN Reason: Pain Stop: 05/04/20 04:46 Pantoprazole Sodium (Protonix) 40 mg PO BID [facility] Stop: 05/19/20 20:59 Last Admin: 04/20/20 08:22 Dose: 40 mg Documented by: Pyridoxine HCl (Vitamin B-6) 100 mg PO BID [facility] Stop: 05/19/20 20:59 Last Admin: 04/20/20 08:22 Dose: 100 mg Documented by: Risperidone (Risperdal) 3 mg PO HS [facility] Stop: 04/20/20 21:01 Last Admin: 04/19/20 21:14 Dose: 3 mg Documented by: Risperidone (Risperdal) 3 mg PO HS [facility] Stop: 05/21/20 20:59 Ropinirole HCl (Requip) 0.25 mg PO HS [facility] Stop: 05/19/20 20:59 Last Admin: 04/19/20 21:51 Dose: 0.25 mg Documented by: Umeclidinium/Vilanterol (Anoro Ellipta 62.5/25 Mcg Inh) 1 puffs INH DAILY [facility] Stop: 05/20/20 08:59 Last Admin: 04/20/20 08:22 Dose: 1 puffs Documented by:
[2020-04-20] MEDS: MONTELUKAST SODIUM 10 MG TABLET PO SCH (20:44)
[2020-04-20] MEDS: ROPINIROLE HCL 0.25 MG TABLET PO SCH (20:44)
[2020-04-20] MEDS: risperiDONE 1 MG TABLET PO SCH (20:44)
[2020-04-20] MEDS: cefTRIAXone SODIUM 2,000 MG in DEXTROSE 5% 50 ML IV SCH (22:23)
[2020-04-20] MEDS ORDERED: HEPARIN 100 UNIT/ML 5ML FLUSH FLUSH PRN (23:57)
[2020-04-21] MEDS: HYDROCORTISONE SOD 50 MG in SYRINGE 0 ML IV SCH ×4 (00:36→21:22)
[2020-04-21] MEDS: ACETAMINOPHEN 325 MG TAB PO PRN ×2 (01:09→17:42)
[2020-04-21 04:52] LABS: BUN Creatinine Ratio 25.9 (10-20); Est GFR (African American) 54.2; Est GFR (Non-African American) 46.7; Magnesium 2.3 mg/dl (1.8-2.4); Phosphorus 4.6 mg/dl (2.5-4.9); Potassium 3.4 mmol/L (3.5-5.1)
[2020-04-21] MEDS ORDERED: ICU ELECTROLYTE REPLACEMENT PROTOCOL PRN (05:08)
[2020-04-21] MEDS: POTASSIUM CHLORIDE / WTR 10 MEQ/100 ML PLCT IV SCH ×4 (05:37→08:49)
[2020-04-21 05:54] LABS: Hematocrit (blood only) 29.3 % (37-47); Mean Corpuscular Hemoglobin 25.4 pg (25-34); Mean Corpuscular Hgb Conc 34.1 g/dL (32-36); Mean Corpuscular Volume 74.6 fL (80-100); RDW Coefficient of Variation 17.6 % (11.5-14.5); RDW Standard Deviation 48.1 fL (36.4-46.3); Red Blood Count 3.93 M/uL (4.2-5.4); White Blood Count 13.16 K/uL (4.8-10.8)
[2020-04-21 06:16] LABS: Echinocytes 1+; Immature Granulocytes # (auto) 0.33 K/uL (0.00-0.02); Immature Granulocytes % (auto) 2.5 %; Lymphocytes % (auto) 3.8 %; Mean Platelet Volume 10.3 fL (7.4-10.4); Monocytes # (auto) 0.36 K/uL (0.11-0.59); Monocytes % (auto) 2.7 %; Neutrophils # (auto) 11.97 K/uL (1.4-6.5); Platelet Count 87 K/uL (130-400); Platelet Estimate Decreased (Normal)
[2020-04-21] MEDS: ALBUT/IPRATROP 3MG/0.5MG NEB 3 ML VIAL NEB SCH ×4 (07:29→19:55)
--- NOTE | 2020-04-21 07:32 | Hospitalist Progress Note ---
Date of Service April 21, 2020 Assessment & Plan (1) Sepsis: Severe Sepsis with septic shock, not POA. Septic shock 2/2 obstructive uropathy with infection present. She underwent ureteral stent placement with drainage of infectious source. She continues on ceftriaxone and stress dose steroids. She is now off pressor support and clinically improved. (2) Shock: Resolved, she is now off pressor support. (3) Obstructive uropathy: s/p ureteral stent by Urology placed 04/21. Good drainage achieved during the procedure. (4) Acute UTI: Ceftriazone and ureteral stent placement. (5) Hypoxia: Initially short of breath and after a recent left greater saphenous cyanoacrylate adhesive procedure with endovenous ablation for chronic venous insufficiency. As a result a bilateral venous doppler was performed revealing a ? DVT in the left leg. This was later felt to be the results of her recent saphenous vein procedure to treat venous insufficiency, and she reports her leg is actually feeling better. Initially she was started on a heparin drip for presumed PE, as no contrast could be in the setting of renal insufficiency. This has been stopped and she is now on minimal oxygen support at this time. (6) JAVI (acute kidney injury): worsened renal function in setting of sepsis syndrome. Improving after resuscitation and source control. (7) Chronic venous insufficiency: S/P left greater saphenous vein ablation on 04/18/[address] Otoole (8) Occlusion of left saphenous vein: *L Saphenous vein thrombus due to saphenous vein ablation (9) Complex sleep apnea syndrome: Bipap HS (10) Depression: Continue escitalopram, risperidone (11) DVT prophylaxis: heparin Conditional Code-Ok to intubate, no CPR Dispo-cont ICU level care. [facility] Admission and Anticipated Discharge Date Admission Date: April 19, 2020 Subjective doing much better today alerta and oriented denies pain was OOB to chair and is tolerating food slight O2 requirement but denies SOB off pressors. Review of Systems Review of Systems: All systems reviewed & are unremarkable except as noted in Subjective Physical Exam Physical Exam: CONSTITUTIONAL: WNWD, vitals as above, NAD EYES: Normal conjunctivae, nonicteric sclera ENT: MMM RESPIRATORY: Mild crackles that are decreased compared to yesterday, no increased respiratory effort. No wheezing. CARDIOVASCULAR: regular rate and rhythm, S1 and 2 heard without murmurs, gallops or rubs, no JVD, no peripheral edema GASTROINTESTINAL: soft, ventral hernias present with prior surgical scars present, slightly distended to palpation but this seems to be more from the excessive scarring and hernias that area present. Nontender MUSCULOSKELETAL: head is normocephalic and atraumatic, No gross focal deficit SKIN: warm and dry NEUROLOGIC: CN II through XII grossly intact, speech intact, memory intact, language intact. Moving all extremities equally. No gross focal deficits. Results & Data Results & Data ([facility]) Vital Signs (Past 12 Hours) Vital Signs Temp Pulse Pulse Resp BP Pulse Ox 04/21/20 06:00 36.7 C 86 15 105/54 L 96 04/21/20 05:00 36.9 C 88 18 111/61 95 04/21/20 04:24 86 04/21/20 04:00 36.9 C 85 16 103/58 L 95 04/21/20 03:26 87 21 95 04/21/20 03:00 36.8 C 89 17 92/56 L 95 04/21/20 02:00 36.8 C 82 15 99/53 L 95 04/21/20 01:00 36.8 C 84 14 98/53 L 95 04/21/20 00:00 36.8 C 83 16 94/56 L 95 04/20/20 23:10 89 22 95 04/20/20 23:00 36.7 C 88 20 105/58 L 95 04/20/20 22:00 36.7 C 86 19 109/57 L 97 04/20/20 21:50 36.7 C 85 14 96 04/20/20 21:30 36.7 C 85 15 97 04/20/20 21:10 36.7 C 85 12 96 04/20/20 21:00 36.7 C 85 15 98/50 L 98 04/20/20 20:50 36.7 C 86 16 96 04/20/20 20:40 36.8 C 88 14 88 L 04/20/20 20:20 87 13 90 04/20/20 20:15 83 04/20/20 20:00 84 14 102/58 L 100 04/20/20 19:56 82 18 95 Laboratory Results Short CBC 04/21/20 Range/Units 04:21 WBC 13.16 H (4.8-10.8) K/uL Hgb 10.0 L (12.0-16.0) g/dL Hct 29.3 L (37-47) % Plt Count 87 L (130-400) K/uL BMP 04/21/20 04:18 Sodium 140 Potassium 3.4 L D Chloride 110 H Carbon Dioxide 22 BUN 31 H Creatinine 1.20 D Glucose 121 H Calcium 8.0 L Medications Administered Current Inpatient Medications Acetaminophen (Tylenol) 650 mg PO Q4H PRN PRN Reason: Pain or Fever Stop: 05/19/20 19:18 Last Admin: 04/21/20 01:09 Dose: 650 mg Documented by: Albuterol (Duoneb) 3 ml NEB QIDR [facility] Stop: 05/19/20 19:18 Last Admin: 04/21/20 15:17 Dose: 3 ml Documented by: Lipase/Protease/Amylase (Pancreaze [id number] Unit) 5 cap PO TIDM [facility] Stop: 05/20/20 07:59 Last Admin: 04/21/20 13:43 Dose: 5 cap Documented by: Desipramine HCl (Norpramin) 50 mg PO TIDM [facility] Stop: 05/20/20 07:59 Last Admin: 04/21/20 13:43 Dose: 50 mg Documented by: Desipramine HCl (Norpramin) 100 mg PO HS [facility] Stop: 05/19/20 20:59 Last Admin: 04/20/20 20:43 Dose: Not Given Documented by: Fludrocortisone Acetate (Florinef) 0.05 mg PO QAM [facility] Stop: 05/20/20 11:29 Last Admin: 04/21/20 07:45 Dose: 0.05 mg Documented by: Fluticasone Furoate (Arnuity Ellipta 100mcg) 1 puffs INH QAM [facility] Stop: 05/20/20 08:59 Last Admin: 04/21/20 07:43 Dose: 1 puffs Documented by: Heparin Sodium (Porcine) (Heparin Sodium (Porcine)) 5,000 units SQ Q12 [facility] Stop: 05/20/20 11:29 Last Admin: 04/21/20 07:45 Dose: 5,000 units Documented by: Norepinephrine Bitartrate 8 mg (/ Dextrose) 508 mls @ 0 mls/hr IV .Q0M [facility]; Protocol Stop: 05/20/20 04:29 Last Admin: 04/21/20 08:13 Dose: Not Given Documented by: Ceftriaxone Sodium 2,000 mg/ (Dextrose) 70 mls @ 140 mls/hr IV Q24H [facility] Stop: 04/30/20 22:59 Last Infusion: 04/20/20 23:34 Dose: Infused Documented by: Hydrocortisone Sodium (Succinate 50 mg/ Syringe) 1 mls @ 2 mls/min IV Q8 [facility] Stop: 05/21/20 13:59 Last Admin: 04/21/20 13:43 Dose: 2 mls/min Documented by: Miscellaneous ([facility] Protocol For Hyperglycemia) 1 ea N/A PRN PRN; Protocol PRN Reason: Hyperglycemia Protocol Stop: 04/22/20 04:46 Miscellaneous ([facility] Electrolyte Replacement Protocol) 1 ea N/A UD PRN PRN Reason: for e-lyte repletion Stop: 04/28/20 05:07 Montelukast Sodium (Singulair) 10 mg PO HS [facility] Stop: 05/19/20 20:59 Last Admin: 04/20/20 20:44 Dose: Not Given Documented by: Multivitamins (Multivitamin Tab) 1 tab PO DAILY [facility] Stop: 05/20/20 08:59 Last Admin: 04/21/20 07:44 Dose: 1 tab Documented by: Oxycodone HCl (Roxicodone Immediate Rel) 5 mg PO Q4H PRN PRN Reason: Pain Stop: 05/04/20 04:46 Pantoprazole Sodium (Protonix) 40 mg PO BID [facility] Stop: 05/19/20 20:59 Last Admin: 04/21/20 07:44 Dose: 40 mg Documented by: Pyridoxine HCl (Vitamin B-6) 100 mg PO BID [facility] Stop: 05/19/20 20:59 Last Admin: 04/21/20 07:44 Dose: 100 mg Documented by: Risperidone (Risperdal) 3 mg PO HS [facility] Stop: 05/21/20 20:59 Ropinirole HCl (Requip) 0.25 mg PO HS [facility] Stop: 05/19/20 20:59 Last Admin: 04/20/20 20:44 Dose: Not Given Documented by: Umeclidinium/Vilanterol (Anoro Ellipta 62.5/25 Mcg Inh) 1 puffs INH DAILY [facility] Stop: 05/20/20 08:59 Last Admin: 04/21/20 07:43 Dose: 1 puffs Documented by:
[2020-04-21] MEDS: UMECLIDINIUM/VILANTEROL 62.5/25MCG 7 PUFFS/INHALER INH SCH (07:43)
[2020-04-21] MEDS: FLUTICASONE FUROATE 100MCG 14 PUFFS/INHALER INH SCH (07:43)
[2020-04-21] MEDS: PANCREAZE (LIPASE 16,800U) CAP PO SCH ×3 (07:44→17:39)
[2020-04-21] MEDS: PANTOprazole 40 MG TAB PO SCH ×2 (07:44→21:03)
[2020-04-21] MEDS: PYRIDOXINE HCL 50 MG TAB PO SCH ×2 (07:44→21:05)
[2020-04-21] MEDS: MULTIVITAMIN TAB PO SCH (07:44)
[2020-04-21] MEDS: DESIPRAMINE HCL 50 MG TAB PO SCH ×4 (07:45→21:04)
[2020-04-21] MEDS: FLUDROCORTISONE ACETATE 0.1 MG TAB PO SCH (07:45)
[2020-04-21] MEDS: HEPARIN SOD 5,000 UNIT/0.5 ML VIAL SQ SCH ×2 (07:45→21:02)
[2020-04-21] MEDS: NORMOSOL-R 1,000 ML IV SCH (07:46)
--- NOTE | 2020-04-21 07:55 | Critical Care Progress Note ---
Date of Service April 21, 2020 Assessment & Plan (1) Admitted to intensive care unit: Impression: 69-year-old female admitted syncopal/fall event at home. She was found to have acute pyelonephritis secondary to an obstructing stone and is on antibiotics and status post cystoscopy with stent placement. She is brought to the ICU 04/20/2024 vasopressor agents 24-hour events: Urology consultation obtained based on findings of the CT of the abdomen and pelvis demonstrating several obstructing stones. She taken to the OR and stent was placed. She tolerated this very well. Her mental status continues to show slow and steady improvement. She initially was on norepinephrine and vasopressin. Vasopressin has been weaned off and we are making significant progress in weaning her norepinephrine. Her acute kidney injury is improving. Recommendations: Neuro -no acute issues. She presented previously with some metabolic en cephalopathy which is now resolved. She is at her baseline Cardiac -severe sepsis with septic shock: She appears adequately volume resuscitated. Echocardiogram with no acute findings. Her blood pressure is tightening up with control of her underlying infection. History of diastolic heart failure and may need diuretics depending on clinical course. She does have some mild valvular heart disease. Outpatient follow-up with cardiology is appropriate. Respiratory -patient initially had some mild hypoxemia and was placed on BiPAP due to apneic periods. This has resolved. She does carry a history of sleep disordered breathing and is recommended to be on BiPAP ST 20/09 with a backup rate of 10. She follows in the sleep clinic with Dr. Hart (complex sleep apnea) and in the pulmonary clinic with JOSIANE Wallace (reactive airway disease). we will continue this nightly while she is sleeping there was initial concern for PE however the occluded saphenous vein identified on duplex ultrasound is a sequelae of her ablation procedure and there was no evidence of propagation into the deep system. Heparin drip is been discontinued. Continue ropinirole for RLS and observe for signs of anticipation or augmentation GI: Large ventral hernia without incarceration. Advance diet as tolerated. RENAL/LYTES -patient presented with acute kidney injury likely due to hypoperfusion and hypotension. Creatinine is continuing to improve on a daily basis. Monitor electrolytes acid-base status and replete as needed. -appreciate urology consultation. She is now status post stent placement. W ill need urology follow-up at discharge ENDO -glycemic control per protocol. The patient was empirically placed on hydrocortisone and Florinef for severe septic shock. Random cortisol was not obtained as the hydrocortisone was initiated before these labs could be drawn. We will continue for now until she is off pressors and then taper to off. HEME - H&H stable, monitor routine CBCs ID -urine culture growing E. coli resistant to fluoroquinolones. Blood cultures 2 out of 2 gram-negative rods, likely similar organism. She has been de- escalated to Rocephin. She reports allergies to cephalosporin including rash and diarrhea but appears to be tolerating this currently. Continue parenteral antibiotics for at least 7 days. LINES/IV ACCESS - Central port access, peripheral IV DVT PROPHYLAXIS - SCDs, subcutaneous heparin We will continue to monitor in the ICU pending resolution of her pressor requirement. At that point time, she can transfer to the floor under the care of the hospitalist. Will sign off when she leaves the ICU. (2) Hypoxia: (3) Sepsis: (4) Shock: (5) Acute UTI: (6) JAVI (acute kidney injury): Admission and Anticipated Discharge Date Admission Date: April 19, 2020 Subjective Patient seen and examined. Discussed with critical care ESTEVAN from overnight as well as bedside ICU nurse. The patient reports no specific complaints currently. She states she feels fine. No chest pain or shortness of breath. She not having any abdominal pain or nausea and vomiting did no flank pain. Review of Systems Review of Systems: All systems reviewed & are unremarkable except as noted in HPI & below Physical Exam Constitutional: WD/WN, vitals as above Neck: trachea midline, no thyromegaly Respiratory: normal respiratory effort, lungs clear to auscultation Cardiovascular: RRR, no murmur, no edema Gastrointestinal (Abdomen): normal bowel sounds, soft, nontender, no hepat osplenomegaly Large ventral hernia. Easily reducible. No tenderness to palpation Musculoskeletal: Extremities: extremities normal to inspection Skin: no rashes, warm and dry Neurologic: Nonfocal exam Lymphatic: no cervical lymphadenopathy Results & Data Results & Data ([facility]) Vital Signs (Past 12 Hours) Vital Signs Temp Pulse Pulse Resp BP Pulse Ox 04/21/20 07:29 90 18 96 04/21/20 06:00 36.7 C 86 15 105/54 L 96 04/21/20 05:00 36.9 C 88 18 111/61 95 04/21/20 04:24 86 04/21/20 04:00 36.9 C 85 16 103/58 L 95 04/21/20 03:26 87 21 95 04/21/20 03:00 36.8 C 89 17 92/56 L 95 04/21/20 02:00 36.8 C 82 15 99/53 L 95 04/21/20 01:00 36.8 C 84 14 98/53 L 95 04/21/20 00:00 36.8 C 83 16 94/56 L 95 04/20/20 23:10 89 22 95 04/20/20 23:00 36.7 C 88 20 105/58 L 95 04/20/20 22:00 36.7 C 86 19 109/57 L 97 04/20/20 21:50 36.7 C 85 14 96 04/20/20 21:30 36.7 C 85 15 97 04/20/20 21:10 36.7 C 85 12 96 04/20/20 21:00 36.7 C 85 15 98/50 L 98 04/20/20 20:50 36.7 C 86 16 96 04/20/20 20:40 36.8 C 88 14 88 L 04/20/20 20:20 87 13 90 04/20/20 20:15 83 04/20/20 20:00 84 14 102/58 L 100 04/20/20 19:56 82 18 95 Laboratory Results 04/21/20 04:21 04/21/20 04:18 Urine culture growing E. coli resistant to ciprofloxacin otherwise sensitive Blood cultures 2 out of 2 gram-negative rods, speciation and sensitivity pending Diagnostic Findings Urology consult and operative note reviewed. Cloudy purulent urine obtained after passage of stent. Echocardiogram demonstrated ejection fraction of 50 to 55% with grade 1 diastolic dysfunction. Mild aortic insufficiency and moderate mitral regurgitation noted. Left atrium is dilated. Not significantly changed from prior Coding Level of Care Code 94220 Subseq Hosp Care Lvl 3 Diagnoses Admitted to intensive care unit Z78.9 Hypoxia R09.02 Sepsis A41.9 Shock R57.9 Acute UTI N39.0 JAVI (acute kidney injury) N17.9
[2020-04-21] MEDS: NOREPINEPHRINE BIT INJ 8 MG in DEXTROSE 5% 500 ML IV SCH ×2 (08:12→08:13)
--- NOTE | 2020-04-21 11:00 | Anesthesiology Progress Note ---
Date of Service April 21, 2020 Anesthesia Post Procedure Vital Signs Vital Signs: Temp Pulse Pulse Resp BP BP Pulse Ox 04/21/20 09:10 36.4 C L 91 H 14 95 04/21/20 09:00 36.5 C 92 H 15 97/54 L 96 04/21/20 08:50 36.5 C 92 H 15 96 04/21/20 08:40 94 H 17 04/21/20 08:30 94 H 22 04/21/20 08:20 36.4 C L 95 H 15 96 04/21/20 08:10 36.6 C 96 H 17 95 04/21/20 08:00 36.6 C 96 H 14 91/51 L 94 04/21/20 07:50 36.6 C 93 H 16 95 04/21/20 07:40 36.6 C 91 H 14 94 04/21/20 07:30 36.5 C 92 H 19 93 04/21/20 07:29 90 18 96 04/21/20 07:20 36.5 C 90 16 94 04/21/20 07:10 36.6 C 91 H 17 93 04/21/20 07:00 36.6 C 91 H 15 102/55 L 95 04/21/20 06:54 36.6 C 90 18 118/62 93 04/21/20 06:50 36.6 C 91 H 15 94 04/21/20 06:45 36.6 C 91 H 20 95 04/21/20 06:00 36.7 C 86 15 105/54 L 96 04/21/20 05:00 36.9 C 88 18 111/61 95 04/21/20 04:24 86 04/21/20 04:00 36.9 C 85 16 103/58 L 95 04/21/20 03:26 87 21 95 04/21/20 03:00 36.8 C 89 17 92/56 L 95 04/21/20 02:00 36.8 C 82 15 99/53 L 95 04/21/20 01:00 36.8 C 84 14 98/53 L 95 04/21/20 00:00 36.8 C 83 16 94/56 L 95 04/20/20 23:10 89 22 95 04/20/20 23:00 36.7 C 88 20 105/58 L 95 04/20/20 22:00 36.7 C 86 19 109/57 L 97 04/20/20 21:50 36.7 C 85 14 96 04/20/20 21:30 36.7 C 85 15 97 04/20/20 21:10 36.7 C 85 12 96 04/20/20 21:00 36.7 C 85 15 98/50 L 98 04/20/20 20:50 36.7 C 86 16 96 04/20/20 20:40 36.8 C 88 14 88 L 04/20/20 20:20 87 13 90 04/20/20 20:15 83 04/20/20 20:00 84 14 102/58 L 100 04/20/20 19:56 82 18 95 04/20/20 19:00 83 12 97/55 L 95 04/20/20 18:00 84 14 98/52 L 95 04/20/20 17:40 87 15 96 04/20/20 17:11 86 16 86/50 L 97 04/20/20 17:10 84 17 97 04/20/20 17:00 85 14 97 04/20/20 16:50 86 12 98 04/20/20 16:45 84 04/20/20 16:40 84 12 97 04/20/20 16:30 84 12 97 04/20/20 16:20 84 13 97 04/20/20 16:10 84 12 97 04/20/20 16:00 85 12 93/60 L 97 04/20/20 15:50 83 25 H 99 04/20/20 15:47 84 24 98 04/20/20 15:45 36.4 C L 83 21 89/53 L 97 04/20/20 15:20 82 18 95/70 L 100 04/20/20 15:10 83 18 87/59 L 100 04/20/20 15:01 36.7 C 87 18 89/65 L 98 04/20/20 14:21 36.6 C 86 18 110/63 91 04/20/20 14:00 37.2 C 84 16 89/58 L 91 04/20/20 13:04 37.4 C 85 17 108/62 90 04/20/20 12:00 37.4 C 87 20 108/80 92 04/20/20 11:04 104 H 32 H 90 04/20/20 11:00 37.5 C 88 24 115/69 94 Pain Intensity Head: Pain Intensity: 2 Transfer of Care Handoff Completed per policy Notes Mental Status: alert / awake / arousable Patient Amnestic to Procedure: Yes Nausea / Vomiting: adequately controlled Pain: adequately controlled Airway Patency, RR, SpO2: stable & adequate BP & HR: stable & adequate Hydration State: stable & adequate Anesthetic Complications: no major complications apparent and Pt Satisfied with anesthetic care Notes: The patient was sitting comfortably in bed. Her SpO2 was 96 on 2 L NC.
[2020-04-21] MEDS: OXYCODONE HCL IR 5 MG TAB (IMMEDIATE RELEASE) PO PRN (18:51)
[2020-04-21] MEDS: risperiDONE 3 MG TABLET PO SCH (21:03)
[2020-04-21] MEDS: ROPINIROLE HCL 0.25 MG TABLET PO SCH (21:03)
[2020-04-21] MEDS: MONTELUKAST SODIUM 10 MG TABLET PO SCH (21:04)
[2020-04-21] MEDS: cefTRIAXone SODIUM 2,000 MG in DEXTROSE 5% 50 ML IV SCH (22:11)
[2020-04-22 04:51] LABS: BUN Creatinine Ratio 32.3 (10-20); Calcium 8.2 mg/dl (8.5-10.1); Creatinine Clr Calc Pharmacy 55.2 ml/min; Est GFR (African American) 66.7; Est GFR (Non-African American) 57.6; Magnesium 2.2 mg/dl (1.8-2.4); Potassium 3.7 mmol/L (3.5-5.1)
[2020-04-22 04:52] LABS: Phosphorus 3.7 mg/dl (2.5-4.9)
[2020-04-22 05:14] LABS: Mean Corpuscular Hgb Conc 34.2 g/dL (32-36)
[2020-04-22 05:17] LABS: Hematocrit (blood only) 28.1 % (37-47); Hemoglobin 9.6 g/dL (12.0-16.0); Mean Corpuscular Hemoglobin 25.3 pg (25-34); Mean Corpuscular Volume 74.1 fL (80-100); RDW Coefficient of Variation 17.7 % (11.5-14.5); RDW Standard Deviation 48.4 fL (36.4-46.3); Red Blood Count 3.79 M/uL (4.2-5.4); White Blood Count 8.76 K/uL (4.8-10.8)
[2020-04-22 05:27] LABS: Mean Platelet Volume 9.9 fL (7.4-10.4); Platelet Count 79 K/uL (130-400)
[2020-04-22 05:35] LABS: Basophils # (auto) 0.01 K/uL (0-0.2); Basophils % (auto) 0.1 %; Echinocytes 1+; Immature Granulocytes # (auto) 0.05 K/uL (0.00-0.02); Immature Granulocytes % (auto) 0.6 %; Lymphocytes # (auto) 0.54 K/uL (1.2-3.4); Lymphocytes % (auto) 6.2 %; Monocytes # (auto) 0.35 K/uL (0.11-0.59); Neutrophils # (auto) 7.81 K/uL (1.4-6.5); Neutrophils % (auto) 89.1 %; Platelet Estimate Decreased (Normal)
[2020-04-22] MEDS: HYDROCORTISONE SOD 50 MG in SYRINGE 0 ML IV SCH (06:12)
[2020-04-22] MEDS: DESIPRAMINE HCL 50 MG TAB PO SCH ×4 (07:39→20:50)
[2020-04-22] MEDS: POTASSIUM CHLORIDE 20 MEQ TABCR PO SCH ×2 (07:40→11:51)
[2020-04-22] MEDS: PANCREAZE (LIPASE 16,800U) CAP PO SCH ×3 (07:40→16:51)
[2020-04-22] MEDS: ALBUT/IPRATROP 3MG/0.5MG NEB 3 ML VIAL NEB SCH ×2 (07:52→11:04)
[2020-04-22] MEDS: UMECLIDINIUM/VILANTEROL 62.5/25MCG 7 PUFFS/INHALER INH SCH (08:17)
[2020-04-22] MEDS: FLUTICASONE FUROATE 100MCG 14 PUFFS/INHALER INH SCH (08:18)
[2020-04-22] MEDS: PANTOprazole 40 MG TAB PO SCH ×2 (08:18→20:49)
[2020-04-22] MEDS: MULTIVITAMIN TAB PO SCH (08:18)
[2020-04-22] MEDS: FLUDROCORTISONE ACETATE 0.1 MG TAB PO SCH (08:18)
[2020-04-22] MEDS: PYRIDOXINE HCL 50 MG TAB PO SCH ×2 (08:19→20:50)
[2020-04-22] MEDS: HEPARIN SOD 5,000 UNIT/0.5 ML VIAL SQ SCH (08:19)
--- NOTE | 2020-04-22 08:25 | Urology Progress Note ---
Date of Service April 22, 2020 Assessment & Plan (1) Obstructive uropathy: S/p stent placement - critical care plan in place - we will arrange for outpt f/u for definitive stone treatment after resolution of the infection Subjective Gradually progressing in regard to urosepsis - s/p emergent stent on Thursday Results & Data Vital Signs (Past 12 Hours) Vital Signs Temp Pulse Pulse Resp BP Pulse Ox 04/22/20 08:00 96 H 04/22/20 07:52 98 H 18 93 04/22/20 05:00 36.3 C L 96 H 15 129/76 91 04/22/20 04:00 36.3 C L 92 H 16 111/70 92 04/22/20 03:33 93 H 14 95 04/22/20 03:00 36.3 C L 94 H 16 115/65 94 04/22/20 02:00 36.2 C L 91 H 16 110/62 93 04/22/20 01:00 36.2 C L 91 H 15 109/64 92 04/22/20 00:01 36.2 C L 86 11 L 100/55 L 93 04/22/20 00:00 36.2 C L 85 13 100/55 L 94 04/21/20 23:00 36.1 C L 85 12 100/55 L 95 04/21/20 22:00 36.1 C L 87 13 97/57 L 94 04/21/20 21:45 90 12 100 04/21/20 21:00 36.3 C L 91 H 15 89/45 L 92 PG Care Time/CCT Total # of Minutes Spent Total Time Spent with Patient: Total time spent is greater than 50% in coordination of care (as documented) at patient's floor/unit and/or counseling patient: Coding Level of Care Code 06604 Subseq Hosp Care Lvl 1 Diagnoses Obstructive uropathy N13.9
--- NOTE | 2020-04-22 09:41 | Critical Care Progress Note ---
Date of Service April 22, 2020 Assessment & Plan (1) Admitted to intensive care unit: Impression: 69-year-old female admitted syncopal/fall event at home. She was found to have acute pyelonephritis secondary to an obstructing stone and is on antibiotics and status post cystoscopy with stent placement. She is brought to the ICU 04/20/2020 for vasopressor agents 24-hour events: She has not required any vasopressor support in the last 48 hours. Urine output has been adequate. No significant events overnight. Recommendations: Neuro -no acute issues. She continues to have some mild metabolic encephalopathy. She may have some mild dementia at baseline. She is currently on risperidone. Hopefully, this will continue to clear as her infection improves. If this does not improve, she may need further brain imaging. Cardiac -severe sepsis with septic shock: She appears adequately volume resuscitated. Echocardiogram with no acute findings. I am weaning her hydrocortisone to 50 mg every 12 and I stopped her fludrocortisone. She will likely need to be restarted on p.o. Lasix tomorrow. She does have some mild valvular heart disease. Outpatient follow-up with cardiology is appropriate. Respiratory -patient initially had some mild hypoxemia and was placed on BiPAP due to apneic periods. This has resolved. She does carry a history of sleep disordered breathing and is recommended to be on BiPAP ST 20/09 with a backup rate of 10. She follows in the sleep clinic with Dr. Hart (complex sleep apnea) and in the pulmonary clinic with JOSIANE Wallace (reactive airway disease). We will continue this nightly while she is sleeping there was initial concern for PE however the occluded saphenous vein identified on duplex ultrasound is a sequelae of her ablation procedure and there was no evidence of propagation into the deep system. Continue ropinirole for RLS and observe for signs of anticipation or augmentation GI: Large ventral hernia without incarceration. Advance diet as tolerated. RENAL/LYTES - Creatinine is continuing to improve on a daily basis. Monitor electrolytes acid-base status and replete as needed. -appreciate urology consultation. She is now status post stent placement. Will need urology follow-up at discharge ENDO -glycemic control per protocol. Weaning hydrocortisone. Fludrocortisone has been stopped. HEME - Her platelet count has been dropping a bit. This may be related to a sepsis consumptive coagulopathy. I am going to hold her heparin for today. HIT panel pending. ID -urine cultures with evidence of resistant E. coli. Continue antibiotics for total 2 weeks. I have ordered for repeat blood cultures to be done today to demonstrate clearing from previous cultures. LINES/IV ACCESS - Central port access, peripheral IV DVT PROPHYLAXIS - SCDs, holding subcutaneous heparin today Patient is safe to be transferred out of the ICU at this time. No ICU needs today. (2) Hypoxia: (3) Sepsis: (4) Shock: (5) Acute UTI: (6) JAVI (acute kidney injury): Admission and Anticipated Discharge Date Admission Date: April 19, 2020 Subjective Patient is sitting up in a chair. No significant events overnight. She has been hemodynamically stable and not required pressors in the last 48 hours. She is a bit delirious and indicated to me that she is in [place] at the [facility]. She denies any chest pain, abdominal pain, nausea or vomiting. Review of Systems Review of Systems: All systems reviewed & are unremarkable except as noted in HPI & below Physical Exam Constitutional: WD/WN, vitals as above Neck: trachea midline, no thyromegaly Respiratory: normal respiratory effort, lungs clear to auscultation Cardiovascular: Regular rate and rhythm. No murmurs. 1+ pitting edema in the lower extremities. Gastrointestinal (Abdomen): normal bowel sounds, soft, nontender, no hepatosplenomegaly Large ventral hernia. Easily reducible. No tenderness to palpation Musculoskeletal: Extremities: extremities normal to inspection Skin: no rashes, warm and dry Neurologic: Nonfocal exam Lymphatic: no cervical lymphadenopathy Results & Data Results & Data ([facility]) Vital Signs (Past 12 Hours) Vital Signs Temp Pulse Pulse Resp BP Pulse Ox 04/22/20 08:00 96 H 04/22/20 07:52 98 H 18 93 04/22/20 05:00 97.3 F L 96 H 15 129/76 91 04/22/20 04:00 97.3 F L 92 H 16 111/70 92 04/22/20 03:33 93 H 14 95 04/22/20 03:00 97.3 F L 94 H 16 115/65 94 04/22/20 02:00 97.2 F L 91 H 16 110/62 93 04/22/20 01:00 97.2 F L 91 H 15 109/64 92 07/19/20 00:01 97.2 F L 86 11 L 100/55 L 93 04/22/20 00:00 97.2 F L 85 13 100/55 L 94 04/21/20 23:00 97.0 F L 85 12 100/55 L 95 04/21/20 22:00 97.0 F L 87 13 97/57 L 94 04/21/20 21:45 90 12 100 I personally reviewed labs, chest imaging and recent notes. Coding Level of Care Code 28542 Subseq Hosp Care Lvl 3 Diagnoses Admitted to intensive care unit Z78.9 Hypoxia R09.02 Sepsis A41.9 Shock R57.9 Acute UTI N39.0 JAVI (acute kidney injury) N17.9
--- NOTE | 2020-04-22 14:11 | Anesthesiology Progress Note ---
Date of Service April 22, 2020 Anesthesia Post Procedure Vital Signs Vital Signs: Temp Pulse Pulse Resp BP Pulse Ox 04/22/20 13:00 102 H 20 131/59 L 93 04/22/20 12:00 101 H 20 132/73 90 04/22/20 11:04 98 H 18 93 04/22/20 11:00 98 H 20 130/72 96 04/22/20 10:35 99 H 19 116/66 94 04/22/20 10:33 99 H 24 125/68 94 04/22/20 10:00 97 H 22 119/69 98 04/22/20 09:00 100 H 20 115/59 L 98 04/22/20 08:33 102 H 17 138/59 L 92 04/22/20 08:00 36.3 C L 98 H 18 121/79 94 04/22/20 07:52 98 H 18 93 04/22/20 07:01 36.3 C L 93 H 22 124/70 96 04/22/20 07:00 36.3 C L 95 H 16 93 04/22/20 05:00 36.3 C L 96 H 15 129/76 91 04/22/20 04:00 36.3 C L 92 H 16 111/70 92 04/22/20 03:33 93 H 14 95 04/22/20 03:00 36.3 C L 94 H 16 115/65 94 04/22/20 02:00 36.2 C L 91 H 16 110/62 93 04/22/20 01:00 36.2 C L 91 H 15 109/64 92 04/22/20 00:01 36.2 C L 86 11 L 100/55 L 93 04/22/20 00:00 36.2 C L 85 13 100/55 L 94 04/21/20 23:00 36.1 C L 85 12 100/55 L 95 04/21/20 22:00 36.1 C L 87 13 97/57 L 94 04/21/20 21:45 90 12 100 04/21/20 21:00 36.3 C L 91 H 15 89/45 L 92 04/21/20 20:00 36.4 C L 90 12 93/57 L 100 04/21/20 19:57 92 H 20 95 04/21/20 19:45 95 H 04/21/20 19:00 95 H 19 126/65 96 07/18/20 15:40 92 H 18 Pain Intensity Head: Pain Intensity: 0 Notes Mental Status: alert / awake / arousable and participated in evaluation Nausea / Vomiting: adequately controlled Pain: adequately controlled Airway Patency, RR, SpO2: stable & adequate BP & HR: stable & adequate Hydration State: stable & adequate Anesthetic Complications: no major complications apparent and Pt Satisfied with anesthetic care
--- NOTE | 2020-04-22 14:45 | Hospitalist Progress Note ---
Date of Service April 22, 2020 Assessment & Plan (1) Abdominal pain: acute pain this afternoon. Repeat bloodwork and lactate were within normal limits. Pain improved significantly with dilaudid 0.5mg IV. CT scan revealed possible ileus with dilated loops of bowel but there was no transition point. She does have multiple hernias present, and if incarcerated bowel were of concern, we would likely need to repeat the CT scan with oral contrast. However, this was done two days ago with no issue and her lactate is normal. Also pain is controllable. She was made NPO. She initially reported a generalized abdominal pain, with a benign abdominal exam. However, later she said her pain was localized more on the left side (not the stented side) with radiation to her back. If possible stent pain/ureteral spasm, have added flomax. (2) Hypoxia: still requiring oxygen and has some evidence of edema at lung bases on both CT scans. As a result of septic shock her home Lasix 80mg BID has been held. Although we could start that now, I would encourage PO hydration and repeat Na in am which is 146. Edema likely related to sepsis resuscitation efforts. She is not working to breathe and lungs are clear on exam today. (3) Sepsis: Severe Sepsis with septic shock, not POA. Septic shock 2/2 obstructive uropathy with infection present. She underwent ureteral stent placement with drainage of infectious source. She continues on ceftriaxone and stress dose steroids. She is now off pressor support and clinically improved. (4) Shock: Resolved, she is now off pressor support. (5) Obstructive uropathy: s/p ureteral stent by Urology placed 04/21. Good drainage achieved during the procedure. Manage pain as above and definitive stone management planned for outpatient setting. (6) Hypoxia: Initially short of breath and after a recent left greater saphenous cyanoacrylate adhesive procedure with endovenous ablation for chronic venous insufficiency. As a result a bilateral venous doppler was performed revealing a ? DVT in the left leg. This was later felt to be the results of her recent saphenous vein procedure to treat venous insufficiency, and she reports her leg is actually feeling better. Initially she was started on a heparin drip for presumed PE, as no contrast could be in the setting of renal insufficiency. This has been stopped and she is now on minimal oxygen support at this time. (7) Acute pyelonephritis: plan as above. (8) Gram-negative bacteremia: FQ-resistant E coli. Continuing treatment with ceftriaxone pending further ID recommendations for abx recommendations. May be prolonged beyond 14 days pending plans for stone management. ID consult in place. Repeat blood cultures are pending. (9) JAVI (acute kidney injury): worsened renal function in setting of sepsis syndrome. resolved. (10) Chronic venous insufficiency: S/P left greater saphenous vein ablation on 04/18/[address] Otoole (11) Occlusion of left saphenous vein: *L Saphenous vein thrombus due to saphenous vein ablation (12) Complex sleep apnea syndrome: Bipap HS (13) Depression: Continue escitalopram, risperidone (14) DVT prophylaxis: heparin-on hold pending HIT assay. TEDs Conditional Code-Ok to intubate, no CPR Dispo-transferred from ICU to med/tele. Dee Mccullough DO [facility] Hospitalist Admission and Anticipated Discharge Date Admission Date: April 19, 2020 Subjective 69 yo F recent treated in the ICU for septic shock requiring pressor support with acute pyelonephritis as a source. She has been improving s/p ureteral stent placement. Although feeling well overnight and this morning and tolerating solid foods for lunch and breakfast this morning, she reports acute onset generalized abdominal pain that has been going on since transferring to the floor which was around 1430. She denies the pain is sharp but cannot describe it. She reports it is 10/10. she denies nausea. She reports last BM was yesterday. She otherwise denies any symptoms. Review of Systems Review of Systems: All systems reviewed & are unremarkable except as noted in Subjective Physical Exam Physical Exam: CONSTITUTIONAL: WNWD, vitals as above, doesn't appear ill but is writhing in pain. EYES: Normal conjunctivae, nonicteric sclera ENT: MMM RESPIRATORY: clear to auscultation, no increased respiratory effort. No wheezing. CARDIOVASCULAR: tachy rate and rhythm, S1 and 2 heard without murmurs, gallops or rubs, no JVD, no peripheral edema GASTROINTESTINAL: soft, ventral hernias present with prior surgical scars present, nondistended but is tender throughout MUSCULOSKELETAL: head is normocephalic and atraumatic, No gross focal deficit SKIN: warm and dry NEUROLOGIC: CN II through XII grossly intact, speech intact, memory intact, language intact. Moving all extremities equally. No gross focal deficits. Results & Data Results & Data ([facility]) Vital Signs (Past 12 Hours) Vital Signs Temp Pulse Pulse Resp BP Pulse Ox 04/22/20 13:00 102 H 20 131/59 L 93 04/22/20 12:00 101 H 20 132/73 90 04/22/20 11:04 98 H 18 93 04/22/20 11:00 98 H 20 130/72 96 04/22/20 10:35 99 H 19 116/66 94 04/22/20 10:33 99 H 24 125/68 94 04/22/20 10:00 97 H 22 119/69 98 04/22/20 09:00 100 H 20 115/59 L 98 04/22/20 08:33 102 H 17 138/59 L 92 04/22/20 08:00 36.3 C L 98 H 18 121/79 94 04/22/20 07:52 98 H 18 93 04/22/20 07:01 36.3 C L 93 H 22 124/70 96 04/22/20 07:00 36.3 C L 95 H 16 93 04/22/20 05:00 36.3 C L 96 H 15 129/76 91 04/22/20 04:00 36.3 C L 92 H 16 111/70 92 04/22/20 03:33 93 H 14 95 04/22/20 03:00 36.3 C L 94 H 16 115/65 94 Laboratory Results Short CBC 04/22/20 Range/Units 03:55 WBC 8.76 (4.8-10.8) K/uL Hgb 9.6 L (12.0-16.0) g/dL Hct 28.1 L (37-47) % Plt Count 79 L (130-400) K/uL Short CBC 04/22/20 04/22/20 Range/Units 03:55 17:15 WBC 8.76 8.82 (4.8-10.8) K/uL Hgb 9.6 L 10.7 L (12.0-16.0) g/dL Hct 28.1 L 31.8 L (37-47) % Plt Count 79 L 84 L (130-400) K/uL BMP 04/22/20 04/22/20 03:55 17:15 Sodium 142 146 H Potassium 3.7 3.7 Chloride 111 H 113 H Carbon Dioxide 23 23 BUN 33 H 28 H Creatinine 1.01 0.86 Glucose 107 H 91 Calcium 8.2 L 8.4 L Liver Function 04/22/20 Range/Units 17:15 Total Bilirubin 0.4 (0.2-1) mg/dl AST 19 (15-37) U/L ALT 13 (12-78) U/L Alkaline Phosphatase 128 H (45-117) U/L Albumin 2.2 L (3.4-5.0) gm/dl BMP 04/22/20 03:55 Sodium 142 Potassium 3.7 Chloride 111 H Carbon Dioxide 23 BUN 33 H Creatinine 1.01 Glucose 107 H Calcium 8.2 L Medications Administered Current Inpatient Medications Acetaminophen (Tylenol) 650 mg PO Q4H PRN PRN Reason: Pain or Fever Stop: 05/19/20 19:18 Last Admin: 04/21/20 17:42 Dose: 650 mg Documented by: Lipase/Protease/Amylase (Pancreaze [id number] Unit) 5 cap PO TIDM CATE Stop: 05/20/20 07:59 Last Admin: 04/22/20 11:51 Dose: 5 cap Documented by: Desipramine HCl (Norpramin) 50 mg PO TIDM CATE Stop: 05/20/20 07:59 Last Admin: 04/22/20 11:51 Dose: 50 mg Documented by: Desipramine HCl (Norpramin) 100 mg PO HS CATE Stop: 05/19/20 20:59 Last Admin: 04/21/20 21:04 Dose: 100 mg Documented by: Fluticasone Furoate (Arnuity Ellipta 100mcg) 1 puffs INH QAM CATE Stop: 05/20/20 08:59 Last Admin: 04/22/20 08:18 Dose: 1 puffs Documented by: Heparin Sodium (Porcine) (Heparin Sodium (Porcine)) 5,000 units SQ Q12 CATE Stop: 05/20/20 11:29 Last Admin: 04/22/20 08:19 Dose: 5,000 units Documented by: Hydrocortisone (Cortef) 20 mg PO BID17 CATE Stop: 04/24/20 09:01 Hydrocortisone (Cortef) 10 mg PO BID17 CATE Stop: 04/26/20 09:01 Ceftriaxone Sodium 2,000 mg/ (Dextrose) 70 mls @ 140 mls/hr IV Q24H CATE Stop: 04/30/20 22:59 Last Infusion: 04/21/20 22:42 Dose: Infused Documented by: Montelukast Sodium (Singulair) 10 mg PO HS CATE Stop: 05/19/20 20:59 Last Admin: 04/21/20 21:04 Dose: 10 mg Documented by: Multivitamins (Multivitamin Tab) 1 tab PO DAILY CATE Stop: 05/20/20 08:59 Last Admin: 04/22/20 08:18 Dose: 1 tab Documented by: Oxycodone HCl (Roxicodone Immediate Rel) 5 mg PO Q4H PRN PRN Reason: Pain Stop: 05/04/20 04:46 Last Admin: 04/21/20 18:51 Dose: 5 mg Documented by: Pantoprazole Sodium (Protonix) 40 mg PO BID CATE Stop: 05/19/20 20:59 Last Admin: 04/22/20 08:18 Dose: 40 mg Documented by: Pyridoxine HCl (Vitamin B-6) 100 mg PO BID CATE Stop: 05/19/20 20:59 Last Admin: 04/22/20 08:19 Dose: 100 mg Documented by: Risperidone (Risperdal) 3 mg PO HS CATE Stop: 05/21/20 20:59 Last Admin: 04/21/20 21:03 Dose: 3 mg Documented by: Ropinirole HCl (Requip) 0.25 mg PO HS CATE Stop: 05/19/20 20:59 Last Admin: 04/21/20 21:03 Dose: 0.25 mg Documented by: Umeclidinium/Vilanterol (Anoro Ellipta 62.5/25 Mcg Inh) 1 puffs INH DAILY CATE Stop: 05/20/20 08:59 Last Admin: 04/22/20 08:17 Dose: 1 puffs Documented by:
[2020-04-22] MEDS ORDERED: HYDROmorphone INJ 0.5 MG/0.5 ML SYR IV STA (16:37)
[2020-04-22] MEDS: HYDROCORTISONE 10 MG TAB PO SCH (16:51)
[2020-04-22] MEDS ORDERED: IOVERSOL 100ml IV PRN (17:22)
[2020-04-22 17:28] LABS: Hematocrit (blood only) 31.8 % (37-47); Hemoglobin 10.7 g/dL (12.0-16.0); Mean Corpuscular Hemoglobin 24.9 pg (25-34); Mean Corpuscular Volume 74.1 fL (80-100); RDW Coefficient of Variation 17.9 % (11.5-14.5); RDW Standard Deviation 48.6 fL (36.4-46.3); Red Blood Count 4.29 M/uL (4.2-5.4); White Blood Count 8.82 K/uL (4.8-10.8)
[2020-04-22 17:36] LABS: Mean Corpuscular Hgb Conc 33.6 g/dL (32-36); Mean Platelet Volume 9.9 fL (7.4-10.4); Platelet Count 84 K/uL (130-400)
[2020-04-22 17:47] LABS: Albumin Level 2.2 gm/dl (3.4-5.0); BUN Creatinine Ratio 32.5 (10-20); Calcium 8.4 mg/dl (8.5-10.1); Creatinine Clr Calc Pharmacy 64.8 ml/min; Est GFR (Non-African American) 69.9; Potassium 3.7 mmol/L (3.5-5.1)
[2020-04-22 17:49] LABS: Albumin Globulin Ratio 0.6 (0.9-2); Bilirubin,Total 0.4 mg/dl (0.2-1); Globulin 3.9 gm/dl (2.5-4.0); Total Protein 6.1 gm/dl (6.4-8.2)
--- NOTE | 2020-04-22 17:52 | CT Scan Report ---
ABDOMEN AND PELVIS CT WITH IV CONTRAST CT DOSE: 974.05 mGy.cm HISTORY: severe acute abdominal pain, tachy, h/o shock TECHNIQUE: Multiaxial CT images of the abdomen and pelvis were performed following the use of intrave nous contrast. A dose lowering technique was utilized adhering to the principles of ALARA. COMPARISON STUDY: Abdomen and pelvis CT 04/20/2020. FINDINGS: Patchy bilateral airspace opacities within the lungs, right greater than left. The heart is borderline enlarged. Tip of a central venous catheter is noted in the distal SVC. Suboptimal evaluat ion due to the motion artifact. No definite pneumoperitoneum or pneumatosis. No suspicious lytic are blastic osseous lesions. Marked thinning of the midline abdominal wall is again noted. This is likely due to old postoperative change. Presacral surgical clips. Bilateral gluteal subcutaneous calcificat ions are again noted. Mild intrahepatic bile duct dilatation. Gallbladder appears surgically absent. Mildly dilated common bile duct remains unchanged. This may be due to the patient's postcholecystecto my state. Gastrohepatic surgical clips. The spleen remains mildly enlarged. The adrenal glands unrema rkable. The pancreas is not well visualized due to the motion artifact but demonstrates diffuse fatty atrophy. No retroperitoneal lymphadenopathy. Normal caliber abdominal aorta. Multiple bilateral oxana l calculi are again noted. There is 1 cm hypodense lesion within the upper pole the right kidney. Thi s favors a cyst. Dominant right renal stone measures 1.5 cm. Interval placement of a right ureteral s tent which appears in good position. There is a 5 mm stone remaining within the distal right ureter b est seen on image 350. This is adjacent to the ureteral stent. This is unchanged in position. Bladder is decompressed by Cam catheter. Bladder wall thickening may be due to the under distention. Gas w ithin the bladder lumen is likely due to the prior catheterization. The uterus is surgically absent. Dense contrast within the proximal colon resulting in artifact along the right side the abdomen. Mode rate well-formed stool seen within the proximal to mid colon. A few mildly dilated gas-filled loops o f small bowel within the midabdomen. This favors a mild ileus. No definite transition point to sugges t a small bowel obstruction. IMPRESSION: 1. Suboptimal study due to motion artifact and the streak artifact from the dense residual barium con trast within the colon. 2. Interval placement of a right ureteral stent which appears in good position. No change in the 5 mm distal right ureteral stone. However, no right-sided hydronephrosis 3. Bilateral nephrolithiasis. 4. A few mildly dilated gas-filled loops of large and small bowel seen throughout the abdomen. No def inite transition point identified. This favors an ileus rather than an obstruction. 5. Patchy bilateral airspace opacities within the lungs, right greater than left. This could be due t o pulmonary edema versus a pneumonia. 6. Marked thinning of the midline abdominal wall. This is likely due to old postoperative change. ACT 112: Negative or not required by law. Electronically signed by: Noel Crenshaw M.D. 04/22/2020 5:50 PM
[2020-04-22] MEDS: MONTELUKAST SODIUM 10 MG TABLET PO SCH (20:49)
[2020-04-22] MEDS: TAMSULOSIN HCL 0.4 MG CAP PO SCH (20:50)
[2020-04-22] MEDS: risperiDONE 3 MG TABLET PO SCH (20:50)
[2020-04-22] MEDS: ROPINIROLE HCL 0.25 MG TABLET PO SCH (20:50)
[2020-04-22] MEDS ORDERED: HYDROCORTISONE SOD 50 MG in SYRINGE 0 ML IV SCH (21:00)
[2020-04-22] MEDS: cefTRIAXone SODIUM 2,000 MG in DEXTROSE 5% 50 ML IV SCH (22:03)
[2020-04-22] MEDS ORDERED: ALBUT/IPRATROP 3MG/0.5MG NEB 3 ML VIAL NEB STA (22:20)
[2020-04-22] MEDS ORDERED: MAGNESIUM SULFATE / D5W 1 GM/100 ML BAG IV ONE (22:23)
[2020-04-22] MEDS ORDERED: XOPENEX/ATROVENT 1.25mg/0.5MG NEB COMBO NEB STA (22:35)
[2020-04-22] MEDS ORDERED: LEVALBUTEROL 1.25MG/0.5ML NEB INH STA (22:39)
[2020-04-22] MEDS ORDERED: IPRATROPIUM BROMIDE NEB SOLN 0.02% 2.5 ML VIAL INH STA (22:39)
[2020-04-22] MEDS ORDERED: FUROSEMIDE 40 MG in SYRINGE 0 ML IV ONE (22:45)
[2020-04-22 23:00] LABS: HCO3 ABG 22 mmol/L (19-24); Oxygen Saturation ABG 86.8 % (90-95); PCO2 ABG 36 mmHg (35-46); PO2 ABG 56 mmHg (80-95); pH ABG 7.39 (7.35-7.45)
[2020-04-22 23:01] LABS: Allen Test POS (Pos)
[2020-04-22 23:06] LABS: Partial Thromboplastin Time 28.2 Seconds (21.0-31.0)
[2020-04-22 23:15] LABS: BUN Creatinine Ratio 36.7 (10-20); Calcium 8.6 mg/dl (8.5-10.1); Creatinine Clr Calc Pharmacy 73.3 ml/min; Est GFR (African American) 94.1; Est GFR (Non-African American) 81.2; Magnesium 2.1 mg/dl (1.8-2.4); Potassium 3.5 mmol/L (3.5-5.1)
[2020-04-22] MEDS: OXYCODONE HCL IR 5 MG TAB (IMMEDIATE RELEASE) PO PRN (23:57)
[2020-04-23] MEDS: POTASSIUM CHLORIDE PWD 20 MEQ PACK PO STA ×2 (00:10)
[2020-04-23] MEDS ORDERED: ACETAMINOPHEN 1,000 MG/100 ML VIAL IV STA (00:21)
[2020-04-23 00:50] LABS: Albumin Level 2.2 gm/dl (3.4-5.0); Bilirubin,Total 0.4 mg/dl (0.2-1)
[2020-04-23 00:56] LABS: Bilirubin Direct 0.1 mg/dl (0-0.2)
[2020-04-23] MEDS: POTASSIUM CHLORIDE / WTR 10 MEQ/100 ML PLCT IV SCH ×6 (01:00→07:06)
--- NOTE | 2020-04-23 01:24 | Communication Note ---
Date of Service: April 23, 2020 Overnight developments : 04/22, 1020 PM Patient complaint of shortness of breath to RT as BiPAP is being set up as per RN. O2 sats 90s on 6 L. Chest x-ray as per my interpretation : Asymmetric pulmonary congestion right greater than the left IV Lasix given for pulmonary congestion. 04/23, 1215 AM Updated by RN of patient status. Patient still S OB. Complaining of abdominal pain. Patient lethargic, unable to follow commands to swallow. O2 sats 87 on 6 L even after IV Lasix administration. At bedside, patient complaining of pleuritic chest pain and S OB. Dry cough symptoms. Worsening abdominal pain as per patient PPE : Lethargic, hard of hearing, obese Decreased breath sounds, bilateral expiratory wheezes Tachycardic Abdominal distention, minimal central abd tenderness EKG as per my interpretation rate 100, LAD, LAFB, LVH, ST depression anterolateral leads AP Encephalopathy Multifactorial : Hypoxemic respiratory failure secondary to fluid overload, history diastolic dysfunction Rule out pulmonary embolism Home neuropsychotropic meds contributory Abdominal pain, recent urologic procedure (ileus on CT abd pelvis 04/22) Continue BiPAP Additional IV Lasix (patient takes Lasix 80 mg p.o. BID at home) Nebs RTC given diffuse expiratory wheezes (hx bronchial asthma on [id number] albuterol Rx as per outpatient Rx list) CT chest PE study (patient creatinine currently within normal limits) CT abdomen pelvis RE worsening abdominal pain, recent urologic procedure) Hold parameters for neuropsychotropic meds for sedation and confusion (Consider discussing possible dose adjustment with Psychiatry if AM provider okay.) Further management pending imaging results.
[2020-04-23] MEDS ORDERED: methylPREDNISolone 20 MG in SYRINGE 0 ML IV STA (01:27)
[2020-04-23] MEDS ORDERED: FUROSEMIDE 20 MG in SYRINGE 0 ML IV ONE ×2 (01:30→09:30)
[2020-04-23 02:52] LABS: Troponin I 0.19 ng/ml (0-0.045)
[2020-04-23] MEDS ORDERED: OPTIRAY 320 125ml IV PRN (03:04)
[2020-04-23] MEDS ORDERED: XOPENEX/ATROVENT 1.25mg/0.5MG NEB COMBO NEB PRN (04:05)
[2020-04-23] MEDS ORDERED: LEVALBUTEROL 1.25MG/0.5ML NEB INH SCH ×2 (04:15→07:00)
[2020-04-23] MEDS ORDERED: IPRATROPIUM BROMIDE NEB SOLN 0.02% 2.5 ML VIAL INH SCH ×2 (04:15→07:00)
[2020-04-23] MEDS ORDERED: METOPROLOL TARTRATE 1 MG/ML VIAL IV STA (04:44)
[2020-04-23 06:20] LABS: Mean Corpuscular Hgb Conc 33.6 g/dL (32-36); Nucleated RBC # (auto) 0.02 K/uL (0-0); Nucleated RBC % (auto) 0.2 %
[2020-04-23 06:30] LABS: Partial Thromboplastin Ratio 0.9; Partial Thromboplastin Time 25.6 Seconds (21.0-31.0)
--- NOTE | 2020-04-23 06:41 | CT Scan Report ---
CT ANGIOGRAPHY OF THE CHEST, PULMONARY EMBOLUS PROTOCOL CLINICAL HISTORY: Shortness of breath. Chest pain. COMPARISON STUDY: Chest radiograph April 16, 2015. Chest radiograph April 22, 2020. TECHNIQUE: Following IV administration of 118 mL of Optiray-320, helical axial images of the chest we re obtained utilizing the pulmonary embolus protocol. Maximal intensity projections and sagittal and coronal reformats were viewed on an independent 3D workstation. IV contrast was administered withou t complication. Automated exposure control was utilized for the study. A dose lowering technique wa s utilized adhering to the principles of ALARA. CT DOSE: 2418.87 mGy.cm FINDINGS: No pulmonary emboli are identified although the segmental and subsegmental pulmonary arter ies are suboptimally assessed given respiratory motion. Note is made of mild cardiomegaly. No pericar dial effusion. No thoracic aortic dissection is noted. There is no thoracic lymphadenopathy. No pneum othorax is present. There are trace bilateral pleural effusions. Lungs are suboptimally assessed give n respiratory motion. Extensive bilateral groundglass opacities with patchy consolidation noted with interlobular septal thickening. Bony thorax is unremarkable. Abdomen and pelvis will be reported sepa rately. IMPRESSION: 1. No pulmonary emboli identified although segmental and subsegmental pulmonary arteries suboptimally assessed given respiratory motion. 2. Extensive bilateral airspace opacities. The findings may reflect pneumonia or pulmonary edema. 3. Trace bilateral pleural effusions. ACT 112: Negative or not required by law. Electronically signed by: Mehrdad Torre M.D. 04/23/2020 6:40 AM
[2020-04-23] MEDS: IPRATROPIUM BROMIDE NEB SOLN 0.02% 2.5 ML VIAL INH SCH ×3 (06:54→19:30)
[2020-04-23] MEDS: LEVALBUTEROL 1.25MG/0.5ML NEB INH SCH ×3 (06:55→19:30)
[2020-04-23 07:00] LABS: BUN Creatinine Ratio 31.5 (10-20); Calcium 8.5 mg/dl (8.5-10.1); Est GFR (African American) 98.8; Est GFR (Non-African American) 85.2; Potassium 3.7 mmol/L (3.5-5.1)
[2020-04-23] MEDS ORDERED: XOPENEX/ATROVENT 1.25mg/0.5MG NEB COMBO NEB SCH ×2 (07:00)
[2020-04-23 07:07] LABS: Troponin I 0.366 ng/ml (0-0.045)
[2020-04-23 07:20] LABS: Hemoglobin 11.1 g/dL (12.0-16.0); Mean Corpuscular Hemoglobin 24.9 pg (25-34); Platelet Count 89 K/uL (130-400); RDW Coefficient of Variation 17.9 % (11.5-14.5); RDW Standard Deviation 48.7 fL (36.4-46.3); Red Blood Count 4.46 M/uL (4.2-5.4); White Blood Count 9.55 K/uL (4.8-10.8)
[2020-04-23 07:21] LABS: Immature Granulocytes # (auto) 0.07 K/uL (0.00-0.02); Immature Granulocytes % (auto) 0.7 %; Lymphocytes # (auto) 0.38 K/uL (1.2-3.4); Microcytosis Present; Monocytes # (auto) 0.46 K/uL (0.11-0.59); Monocytes % (auto) 4.8 %; Neutrophils # (auto) 8.64 K/uL (1.4-6.5); Neutrophils % (auto) 90.5 %; Platelet Estimate Decreased (Normal); Target Cells 1+; Toxic Vacuolation 1+
--- NOTE | 2020-04-23 07:35 | XRay Report ---
XR chest 1V portable CLINICAL HISTORY: sob COMPARISON STUDY: Chest radiograph April 20, 2020. FINDINGS: Right internal jugular [id number] is in place. There is no pneumothorax. Interstitial th ickening and extensive bilateral airspace opacities have progressed. Cardiomegaly is unchanged. There are surgical clips within the upper abdomen. There are trace bilateral pleural effusions. IMPRESSION: 1. Progression of extensive bilateral airspace opacities and interstitial thickening. The findings ma y reflect pulmonary edema or pneumonia. 2. Trace bilateral pleural effusions. ACT 112: Negative or not required by law. Electronically signed by: Mehrdad Torre M.D. 04/23/2020 7:34 AM
[2020-04-23] MEDS: FUROSEMIDE 40 MG TAB PO SCH (08:04)
[2020-04-23] MEDS: HYDROCORTISONE 10 MG TAB PO SCH (08:04)
[2020-04-23] MEDS: UMECLIDINIUM/VILANTEROL 62.5/25MCG 7 PUFFS/INHALER INH SCH (08:05)
[2020-04-23] MEDS: FLUTICASONE FUROATE 100MCG 14 PUFFS/INHALER INH SCH (08:05)
[2020-04-23] MEDS: PANCREAZE (LIPASE 16,800U) CAP PO SCH (08:12)
[2020-04-23] MEDS: DESIPRAMINE HCL 50 MG TAB PO SCH (08:12)
[2020-04-23] MEDS: PANTOprazole 40 MG TAB PO SCH (08:13)
[2020-04-23] MEDS: MULTIVITAMIN TAB PO SCH (08:13)
[2020-04-23] MEDS: METOPROLOL TARTRATE 25 MG TAB PO SCH (08:13)
[2020-04-23] MEDS: PYRIDOXINE HCL 50 MG TAB PO SCH (08:13)
--- NOTE | 2020-04-23 08:22 | CT Scan Report ---
ABDOMEN AND PELVIS CT WITH IV CONTRAST HISTORY: Acute generalized abdominal pain worsening abd pain TECHNIQUE: Multiaxial CT images of the abdomen and pelvis were performed following the IV administrat ion of 118 cc of Optiray 320, A dose lowering technique was utilized adhering to the principles of A SIMON. COMPARISON STUDY: CT chest of same day, CT abdomen and pelvis 04/22/2020 FINDINGS: Extensive patchy consolidative and groundglass opacities of the lung bases with intralobula r septal thickening. Trace pleural effusions. Imaged inferior cardiac chambers are mildly enlarged. N o pneumatosis or pneumoperitoneum. Study is motion degraded. Study is motion degraded. Streak artifac t from residual enteric contrast in the colon. The spleen and adrenal glands are unremarkable. Cholec ystectomy with mild intrahepatic and extrahepatic biliary ductal dilation, likely postsurgical. Moder ate pancreatic atrophy. There are a few bilateral renal cysts. Bilateral nephrolithiasis. Indeterminate millimeter hypodensit y of the medial interpolar right kidney. Satisfactory positioning of the right ureteral stent with un changed positioning of the 5 mm distal ureteral calculus. Cam catheter noted within a decompressed urinary bladder. Hysterectomy. Aorta and IVC are unremarkable. No adenopathy. Prior gastric bypass. The duodenum is fluid-filled and mildly dilated. Fluid-filled mildly prominent loop of jejunum within the abdominal left upper quadrant appears similar to comparison. No transition point to suggest obstruction. Moderate fecal retention. Nonvisualization of the appendix. Marked thi nning of the anterior abdominal wall with diastases is unchanged. Mild nonspecific subcutaneous edema of the bilateral lower flank and gluteal distributions. Demineralized appearance of the bones with d egenerative changes of the spine, pelvis and hips. IMPRESSION: 1. Stable positioning of a right ureteral stent with unchanged 5 mm calculus of the distal right uret er. 2. Bilateral nephrolithiasis. 3. Groundglass and consolidative opacities of the lung bases suggest pneumonia versus pulmonary edema . 4. Trace pleural effusions. 5. Fluid-filled mildly dilated duodenum and proximal jejunum may be physiologic or reflect a mild ile us. No obstruction identified. 6. Moderate fecal retention. 7. Additional findings as above. ACT 112: Negative or not required by law. The above report was generated using voice recognition software. It may contain grammatical, syntax o r spelling errors. Electronically signed by: Ernesto Kirby M.D. 04/23/2020 8:20 AM
--- NOTE | 2020-04-23 08:37 | Hospitalist Progress Note ---
Date of Service April 23, 2020 Assessment & Plan (1) Acute respiratory failure: Typically uses bipap overnight per home regimen, however, hypoxia worsened overnight. CT angio revealed no evidence of PE, pulmonary edema is significant and likely the cause of her current respiratory distress. Discussed the case with Plant Facilities Technician who if evaluating her at bedside and performed a bedside lung us. Lasix 20mg IV given overnight with net 4L off overnight so far. Will give additional 20mg IV now, and transfer to PCU. ABG is WNL on BIPAP 20/09 at 40%. Inspiratory pressure was decreased to 15mmHg to decrease mask leak. Transfer to PCU for continued monitoring. (2) Abdominal pain: Likely related to ileus which may have improved with improvement in abdominal exam and no walter tenderness of exam. However, will cont to keep NPO in setting of her concerning respiratory status. Flomax added last night in case of ureteral spasm as a contributer of pain. She also is exhibiting some ?delirium, and may be suffering from uncontrolled pain. Will schedule Tylenol IV for her now. (3) Sepsis: Severe Sepsis with septic shock, not POA. Septic shock 2/2 obstructive uropathy with infection present. She underwent ureteral stent placement with drainage of infectious source. She continues on ceftriaxone and stress dose steroids. She is now off pressor support and clinically improved. (4) Shock: Resolved, she is now off pressor support. (5) Obstructive uropathy: s/p ureteral stent by Urology placed 04/21. Good drainage achieved during the procedure. Manage pain as above and definitive stone management planned for outpatient setting. (6) Acute pyelonephritis: plan as above. (7) Gram-negative bacteremia: FQ-resistant E coli. Per ID specialist, will continue with ceftriaxone and transition to oral cefdinir when tolerant of PO for total 14 day course. (8) JAVI (acute kidney injury): worsened renal function in setting of sepsis syndrome. resolved. I would expect that with two doses of IV contrast yesteday and reinitiation of Lasix overnight and today, we may start to see a worsening of this again. Will monitor with daily BMP. (9) Chronic venous insufficiency: S/P left greater saphenous vein ablation on 04/18/[address] Otoole (10) Occlusion of left saphenous vein: *L Saphenous vein thrombus due to saphenous vein ablation (11) Complex sleep apnea syndrome: Bipap HS (12) Depression: Continue escitalopram, risperidone (13) DVT prophylaxis: heparin-on hold pending HIT assay. TEDs Conditional Code-Ok to intubate, no CPR Dispo-transferred back to PCU for close monitoring of worsening respiratory status. Holding all PO meds at this time. Sister Michelle was updated by phone and verbalized that she understood the reason for the transfer with no further questions at this time. DO Kathy Zhou Hospitalist Admission and Anticipated Discharge Date Admission Date: April 19, 2020 Subjective Pt on home BIPAP this morning Received Lasix 20mg IV overnight and 4L off net overnight. Still with increased respiratory effort on BIPAP currently Lungs are clear to auscultation. Although she is oriented to person and place, she is hallucinating that cats are in the room on the ceiling. She is reporting some discomfort in her posterior right back. Although she reports pain in her abdomen, when asked where the pain is, she points to her rear right flank area. She has been afebrile. No WBC elevation on [place] this morning. Review of Systems Review of Systems: Other (difficult to obtain full ROS with BIPAP and some ? delirium in play today.) Physical Exam Physical Exam: CONSTITUTIONAL: WNWD, vitals as above, NAD except when palpating right flank which is painful. There is a softball size area of ecchymosis present there. EYES: Normal conjunctivae, nonicteric sclera ENT: MMM RESPIRATORY: clear to auscultation, BIPAP in place at 40% (17/), increased respiratory effort. CARDIOVASCULAR: tachy rate and rhythm, S1 and 2 heard without murmurs, gallops or rubs, no JVD, no peripheral edema GASTROINTESTINAL: soft, ventral hernias present with prior surgical scars present, nondistended, nontender throughout MUSCULOSKELETAL: head is normocephalic and atraumatic, No gross focal deficit SKIN: warm and dry NEUROLOGIC: CN II through XII grossly intact, speech intact, memory intact, language intact. Moving all extremities equally. No gross focal deficits. Results & Data Results & Data ([facility]) Vital Signs (Past 12 Hours) Vital Signs Temp Pulse Pulse Resp BP BP Pulse Ox 04/23/20 08:08 106 H 30 H 87 L 04/23/20 07:43 36.6 C 105 H 20 120/81 91 04/23/20 06:55 97 H 97 H 20 97 04/23/20 05:24 104 H 142/86 H 04/23/20 04:00 36.4 C L 102 H 20 142/86 H 98 04/23/20 03:21 100 H 24 96 04/23/20 01:49 102 H 24 100 04/23/20 00:00 106 H 04/22/20 23:00 36.7 C 98 H 20 122/80 95 04/22/20 22:51 106 H 20 87 L 04/22/20 22:20 108 H 20 149/86 H 90 04/22/20 22:01 88 20 90 Laboratory Results Short CBC 04/22/20 04/23/20 Range/Units 17:15 06:01 WBC 8.82 9.55 (4.8-10.8) K/uL Hgb 10.7 L 11.1 L (12.0-16.0) g/dL Hct 31.8 L 33.0 L (37-47) % Plt Count 84 L 89 L (130-400) K/uL BMP 04/22/20 04/22/20 04/23/20 17:15 22:39 06:01 Sodium 146 H 144 143 Potassium 3.7 3.5 3.7 Chloride 113 H 111 H 108 H Carbon Dioxide 23 23 26 BUN 28 H 28 H 23 H Creatinine 0.86 0.76 0.73 Glucose 91 117 H 117 H Calcium 8.4 L 8.6 8.5 Cardiac Enzymes 04/22/20 04/23/20 Range/Units 22:39 06:01 Troponin I 0.190 H* 0.366 H* (0-0.045) ng/ml Liver Function 04/22/20 04/22/20 Range/Units 17:15 22:39 Total Bilirubin 0.4 0.4 (0.2-1) mg/dl Direct Bilirubin 0.1 (0-0.2) mg/dl AST 19 17 (15-37) U/L ALT 13 17 (12-78) U/L Alkaline Phosphatase 128 H 118 H (45-117) U/L Albumin 2.2 L 2.2 L (3.4-5.0) gm/dl Medications Administered Current Inpatient Medications Lipase/Protease/Amylase (Pancreaze 33669 Unit) 5 cap PO TIDM [facility] Stop: 05/20/20 07:59 Last Admin: 04/23/20 08:12 Dose: Not Given Documented by: Desipramine HCl (Norpramin) 50 mg PO TIDM [facility] Stop: 05/20/20 07:59 Last Admin: 04/23/20 08:12 Dose: Not Given Documented by: Desipramine HCl (Norpramin) 100 mg PO HS [facility] Stop: 05/19/20 20:59 Last Admin: 04/22/20 20:50 Dose: 100 mg Documented by: Fluticasone Furoate (Arnuity Ellipta 100mcg) 1 puffs INH QAM [facility] Stop: 05/20/20 08:59 Last Admin: 04/23/20 08:05 Dose: 1 puffs Documented by: Furosemide (Lasix) 40 mg PO BID17 [facility] Stop: 05/23/20 08:59 Last Admin: 04/23/20 08:04 Dose: Not Given Documented by: Heparin Sodium (Porcine) (Heparin Sodium (Porcine)) 5,000 units SQ Q12 [facility] Stop: 05/20/20 11:29 Last Admin: 04/22/20 08:19 Dose: 5,000 units Documented by: Heparin Sodium (Porcine) (Heparin Sod 100 Unit/Ml Flush) 5 ml FLUSH PRN PRN PRN Reason: Flush Stop: 05/23/20 06:14 Hydrocortisone (Cortef) 20 mg PO BID17 [facility] Last Admin: 04/23/20 08:04 Dose: Not Given Documented by: Hydrocortisone (Cortef) 10 mg PO BID17 [facility] Ceftriaxone Sodium 2,000 mg/ (Dextrose) 70 mls @ 140 mls/hr IV Q24H [facility] Stop: 04/30/20 22:59 Last Infusion: 04/22/20 23:02 Dose: Infused Documented by: Acetaminophen (Ofirmev) 1,000 mg in 100 mls @ 400 mls/hr IV Q8H [facility] Stop: 04/26/20 08:59 Last Infusion: 04/23/20 10:06 Dose: Infused Documented by: Pantoprazole Sodium 40 mg/ (Syringe) 10 mls @ 5 mls/min IV BID [facility] Stop: 05/23/20 09:29 Last Admin: 04/23/20 09:49 Dose: 5 mls/min Documented by: Hydrocortisone Sodium (Succinate 50 mg/ Syringe) 1 mls @ 4 mls/min IV Q12H [facility] Stop: 05/23/20 09:59 Last Admin: 04/23/20 09:49 Dose: 4 mls/min Documented by: Ioversol (Optiray 320 100ml) 93 ml IV ONCE PRN PRN Reason: Interaction Checking Stop: 04/26/20 17:21 Last Admin: 04/22/20 17:22 Dose: 93 ml Documented by: Ioversol (Optiray 320 125ml) 125 ml IV ONCE PRN PRN Reason: Interaction Checking Stop: 04/27/20 03:03 Last Admin: 04/23/20 03:04 Dose: 118 ml Documented by: Ipratropium [place] (Atrovent 0.02% 0.5mg/2.5ml) 0.5 mg INH Q6R [facility] Stop: 05/23/20 06:59 Last Admin: 04/23/20 06:54 Dose: 0.5 mg Documented by: Levalbuterol HCl (Xopenex 1.25mg/0.5ml Neb) 1.25 mg INH Q6R [facility] Stop: 05/23/20 06:59 Last Admin: 04/23/20 06:55 Dose: 1.25 mg Documented by: Metoprolol Tartrate (Lopressor) 12.5 mg PO BID [facility] Stop: 05/23/20 08:59 Last Admin: 04/23/20 08:13 Dose: Not Given Documented by: Montelukast Sodium (Singulair) 10 mg PO HS [facility] Stop: 05/19/20 20:59 Last Admin: 04/22/20 20:49 Dose: 10 mg Documented by: Multivitamins (Multivitamin Tab) 1 tab PO DAILY [facility] Stop: 05/20/20 08:59 Last Admin: 04/23/20 08:13 Dose: Not Given Documented by: Oxycodone HCl (Roxicodone Immediate Rel) 5 mg PO Q4H PRN PRN Reason: Pain Stop: 05/04/20 04:46 Last Admin: 04/21/20 18:51 Dose: 5 mg Documented by: Pantoprazole Sodium (Protonix) 40 mg PO BID [facility] Stop: 05/19/20 20:59 Last Admin: 04/23/20 08:13 Dose: Not Given Documented by: Pyridoxine HCl (Vitamin B-6) 100 mg PO BID [facility] Stop: 05/19/20 20:59 Last Admin: 04/23/20 08:13 Dose: Not Given Documented by: Risperidone (Risperdal) 3 mg PO [facility] Stop: 05/21/20 20:59 Last Admin: 04/22/20 20:50 Dose: 3 mg Documented by: Ropinirole HCl (Requip) 0.25 mg PO [facility] Stop: 05/19/20 20:59 Last Admin: 04/22/20 20:50 Dose: 0.25 mg Documented by: Tamsulosin HCl (Flomax) 0.4 mg PO [facility] Stop: 05/22/20 20:59 Last Admin: 04/22/20 20:50 Dose: 0.4 mg Documented by: Umeclidinium/Vilanterol (Anoro Ellipta 62.5/25 Mcg Inh) 1 puffs INH DAILY [facility] Stop: 05/20/20 08:59 Last Admin: 04/23/20 08:05 Dose: 1 puffs Documented by:
[2020-04-23] MEDS: ACETAMINOPHEN 1,000 MG/100 ML VIAL IV SCH ×2 (09:47→16:05)
[2020-04-23] MEDS: PANTOprazole 40 MG in SYRINGE 0 ML IV SCH ×2 (09:49→20:44)
[2020-04-23] MEDS: HYDROCORTISONE SOD 50 MG in SYRINGE 0 ML IV SCH ×2 (09:49→22:01)
[2020-04-23 10:21] LABS: Base Excess ABG 1.5 mEq/L (-9-1.8); HCO3 ABG 26 mmol/L (19-24); Oxygen Saturation ABG 96.2 % (90-95); PCO2 ABG 41 mmHg (35-46); PO2 ABG 82 mmHg (80-95); pH ABG 7.42 (7.35-7.45)
[2020-04-23 10:26] LABS: Allen Test Pos (Pos)
--- NOTE | 2020-04-23 15:07 | Electrocardiogram Report ---
Test Reason : Blood Pressure : / mmHG Vent. Rate : 101 BPM Atrial Rate : 101 BPM P-R Int : 200 ms QRS Dur : 112 ms QT Int : 376 ms P-R-T Axes : 039 -27 023 degrees QTc Int : 487 ms Sinus tachycardia Minimal voltage criteria for LVH, may be normal variant Nonspecific ST abnormality Abnormal ECG When compared with ECG of 19-APR-2020 13:45, Nonspecific T wave abnormality no longer evident in Lateral leads Confirmed by Boby Nevarez ([id number]) on 04/23/2020 3:06:25 PM Referred By: REFERRED SELF Confirmed By:Boby Nevarez
[2020-04-23] MEDS ORDERED: MAGNESIUM SULFATE / D5W 1 GM/100 ML BAG IV ONE (19:45)
--- NOTE | 2020-04-23 19:55 | Communication Note ---
Date of Service: April 23, 2020 I was notified by the nurse in the afternoon that she was doing well on nasal canula and her respiratory status was improved. On arrival to bedside around 7pm, however, she was back on BIPAP 12/5 and 40% oxygenating 100%. She was not working to breathe, but was somnolent and notably on scheduled Tylenol. She does not have peripheral edema. She appears comfortable on the BIPAP. CXR is improved from last night and she has diuresed net 5.5 L today so far. Pulmonary exam reveals crackles on the left and clear on the right side. Abdomen is soft and nontender, nondistended. Lasix 40mg IV, BMP/ABG pending. Cont BIPAP with wean as tolerated. Cont NPO x meds, sips and chips as mental status allows. Cont close monitoring in PCU. DO Jamel
--- NOTE | 2020-04-23 19:56 | XRay Report ---
SINGLE VIEW CHEST CLINICAL HISTORY: Dyspnea. FINDINGS: An AP, portable, upright chest radiograph is compared to study dated 04/22/2020 and correlat ed with chest CT performed the same day 04/23/2020. The examination is degraded by portable technique and patient rotation. A right sided central venous infusion port is unchanged in position. The heart is enlarged noting atherosclerotic calcification of the thoracic ureter. There is pulmonary vascular congestion. Bilateral airspace opacities have modestly cleared from yesterday. No large pleural effus ion or pneumothorax is seen. The skeletal structures are osteopenic. The bony thorax is grossly intac t. Surgical clips project over the gastroesophageal junction. IMPRESSION: 1. Cardiomegaly with evidence of congestive failure. 2. Bilateral airspace opacities likely represent interstitial edema. This has modestly cleared as com pared to yesterday. Correlate clinically for evidence of a superimposed infectious/inflammatory pneum onitis. ACT 112: Negative or not required by law. Electronically signed by: Chinedu Hicks M.D. 04/23/2020 7:55 PM
[2020-04-23] MEDS: POTASSIUM CHLORIDE / WTR 20 MEQ/100 ML PLCT IV SCH ×2 (19:57→21:59)
[2020-04-23] MEDS ORDERED: FUROSEMIDE 40 MG in SYRINGE 0 ML IV ONE (20:00)
[2020-04-23] MEDS ORDERED: ALBUMIN 25% 50 ML with FUROSEMIDE 40 MG IV ONE (20:00)
[2020-04-23] MEDS ORDERED: ACETAMINOPHEN 1,000 MG/100 ML VIAL IV PRN (20:00)
[2020-04-23 20:12] LABS: HCO3 ABG 28 mmol/L (19-24); Oxygen Saturation ABG 98.5 % (90-95); PCO2 ABG 43 mmHg (35-46); PO2 ABG 118 mmHg (80-95); pH ABG 7.43 (7.35-7.45)
[2020-04-23 20:15] LABS: Allen Test POS (Pos)
[2020-04-23 20:24] LABS: BUN Creatinine Ratio 30.4 (10-20); Calcium 8.5 mg/dl (8.5-10.1); Creatinine Clr Calc Pharmacy 71.1 ml/min; Est GFR (African American) 94.1; Est GFR (Non-African American) 81.2; Magnesium 1.9 mg/dl (1.8-2.4); Potassium 3.2 mmol/L (3.5-5.1)
[2020-04-23] MEDS: cefTRIAXone SODIUM 2,000 MG in DEXTROSE 5% 50 ML IV SCH (23:40)
[2020-04-24] MEDS: IPRATROPIUM BROMIDE NEB SOLN 0.02% 2.5 ML VIAL INH SCH ×2 (01:06→07:18)
[2020-04-24] MEDS: LEVALBUTEROL 1.25MG/0.5ML NEB INH SCH ×2 (01:06→07:18)
[2020-04-24] MEDS: PANTOprazole 40 MG in SYRINGE 0 ML IV SCH ×2 (08:59→21:06)
[2020-04-24] MEDS: HYDROCORTISONE SOD 50 MG in SYRINGE 0 ML IV SCH ×2 (08:59→21:06)
[2020-04-24] MEDS ORDERED: LEVALBUTEROL 1.25MG/0.5ML NEB INH PRN (09:46)
[2020-04-24] MEDS ORDERED: IPRATROPIUM BROMIDE NEB SOLN 0.02% 2.5 ML VIAL INH PRN (09:46)
[2020-04-24] MEDS: FLUTICASONE FUROATE 100MCG 14 PUFFS/INHALER INH SCH (09:47)
[2020-04-24] MEDS: UMECLIDINIUM/VILANTEROL 62.5/25MCG 7 PUFFS/INHALER INH SCH (09:49)
[2020-04-24 10:27] LABS: Hematocrit (blood only) 34.4 % (37-47); Hemoglobin 11.2 g/dL (12.0-16.0); Mean Corpuscular Hemoglobin 24.7 pg (25-34); Mean Corpuscular Hgb Conc 32.6 g/dL (32-36); Mean Corpuscular Volume 75.9 fL (80-100); Mean Platelet Volume 10.1 fL (7.4-10.4); Platelet Count 139 K/uL (130-400); RDW Coefficient of Variation 17.9 % (11.5-14.5); RDW Standard Deviation 49.7 fL (36.4-46.3); Red Blood Count 4.53 M/uL (4.2-5.4); White Blood Count 9.22 K/uL (4.8-10.8)
[2020-04-24 10:43] LABS: BUN Creatinine Ratio 32.5 (10-20); Calcium 8.9 mg/dl (8.5-10.1); Creatinine Clr Calc Pharmacy 75.6 ml/min; Est GFR (African American) 103.9; Est GFR (Non-African American) 89.7; Potassium 3.1 mmol/L (3.5-5.1)
[2020-04-24] MEDS ORDERED: DEXTROSE 5% 1,000 ML IV SCH (11:15)
[2020-04-24] MEDS: PREGABALIN 100 MG CAP PO SCH ×2 (11:46→20:27)
[2020-04-24] MEDS ORDERED: HYDROCORTISONE 10 MG TAB PO SCH (17:00)
--- NOTE | 2020-04-24 17:01 | Hospitalist Progress Note ---
Date of Service April 24, 2020 Assessment & Plan (1) Acute respiratory failure: Overall this is a patient who didn't need much in the way of fluid resuscitation with septic shock based on what was recorded, who appeared euvolemic when transferred out of the ICU (04/22), but developed pulmonary edema and respiratory distress that evening, received Lasix 20mg IV and diuresed 4.5L net in 6-8 hours;hypoxia responded well to BIPAP. On 04/23 in the morning (that next morning) she had difficulty coming off the BIPAP 2/2 persistent pulmonary edema and was given an additional dose of Lasix 20mg IV with another net couple Liters off. She was able to come off the BIPAP for a few hours but then went back on it in the evening (04/23). A repeat CXR at that time revealed improving pulmonary edema. Lasix 40mg IV was given at that time. She diuresed approx 3L overnight. Na this morning (04/24) was 153. Oxygenating better on nasal canula throughout the day (04/24). D5W was started for hypernatremia (NA 153) and confusion/lethargy this morning, however, fluid stopped after 1L (1700) for worsening hypoxia and increased pulmonary edema. Responded very well to the BIPAP and respiratory will leave on BIPAP overnight and wean off in am. Diuril given as Na jewels from 153 (0700) to 154 (1700), in an effort to continue the diuresis. Suspect the hypernatremia was going to continue to climb today, but the free water slowed the rise somewhat. ? Did not give further Lasix so as to not worsen the hypernatremia. Dosed with Diuril 500mg IV instead. Alkalosis is present. No Lasix currently scheduled and fluid status will need to be re-evaluated in am to continue diuresis efforts. Nephrology consulted. Stable respiratory status on the BIPAP. Repeat BMP at 11pm this evening revealed the Na decreasing to 152, K 2.9 with an additional 30 MEq of KCl yet to give, and nurse reports she has woken up and is asking him questions. Discussed the case peripherally with the respiratory care assistant human relations teacher. Formal consult in am. Tough to say at this point, but wondering if a post-obstructive diuresis may have played a role in water balance after the emergent cystoscopy with stent placement which relieved the obstruction. Appreciate further Nephrology recs for management of the hypertonic hypernatremia and fluid balance/electrolyte replacement. Cont to diurese as tolerated to improve the pulmonary edema. (2) Abdominal pain: Nonspecific, when she had pain, an ileus appeared on imaging. However, she has now had a BM and eaten food today, so this has resolved. No further workup as abdominal pain appears to have subsided. (3) Sepsis: Severe Sepsis with septic shock, not POA. Septic shock 2/2 obstructive uropathy with infection present. She underwent ureteral stent placement with drainage of infectious source (04/20). She came off pressor support shortly after source control. She continues on ceftriaxone for E coli bacteremia, and stress dose steroids which will need to be continually weaned. (4) Shock: Resolved, she is now off pressor support. (5) Obstructive uropathy: s/p ureteral stent by Urology placed 04/21. Good drainage achieved during the procedure. Manage pain as above and definitive stone management planned for outpatient setting. (6) Gram-negative bacteremia: FQ-resistant E coli. Per ID specialist, will continue with ceftriaxone and transition to oral cefdinir when tolerant of PO for total 14 day course. (7) Acute pyelonephritis: plan as above. (8) Thrombocytopenia: Acute hypernatremia, likely related to consumption from sepsis. HIT AB was negative. PLT count improved to 135K, resumed heparin. (9) JAVI (acute kidney injury): worsened renal function in setting of sepsis syndrome. resolved. I would expect that with multiple doses of IV contrast and reinitiation of Lasix, we may start to see a worsening of this again. Will monitor with daily BMP. (10) Chronic venous insufficiency: S/P left greater saphenous vein ablation on 04/18/[address] Otoole (11) Occlusion of left saphenous vein: *L Saphenous vein thrombus due to saphenous vein ablation (12) Complex sleep apnea syndrome: Bipap HS (13) Depression: Continue escitalopram, risperidone (14) Acute pulmonary edema: plan as above, currently doing well on BIPAP (15) Hypernatremia: Hypertonic hypernatremia 2/2 loop diuretic administration with plan as above. Nephrology to reassess volume status in am and appreciate additional recommendations. (16) DVT prophylaxis: Heparin Conditional Code-Ok to intubate, no CPR Dispo-continue PCU monitoring until she is euvolemic again. Once we can get there successfully and electrolytes are corrected, she may be discharge with further stone management as outpatient. Cefdinir to complete 14 day course. Suspect may require rehab with prolonged critical illness. Dee Mccullough DO [facility] Hospitalist Admission and Anticipated Discharge Date Admission Date: April 19, 2020 Subjective Somnolent, denies abdominal pain but couldn't get much else from her. Review of Systems Review of Systems: Unobtainable due to cognitive status Physical Exam Physical Exam: CONSTITUTIONAL: WNWD, vitals as above, NAD except when palpating right flank which causes her to withdraw in pain somewhat. There is a softball size area of ecchymosis present there that is healing. EYES: Normal conjunctivae, nonicteric sclera ENT: MMM RESPIRATORY: clear to auscultation, min crackles at the left base and clear in upper left posterior lung field and in the right posterior rivera. CARDIOVASCULAR: tachy rate and rhythm, S1 and 2 heard without murmurs, gallops or rubs, no JVD, no peripheral edema GASTROINTESTINAL: soft, ventral hernias present with prior surgical scars present, nondistended, nontender throughout MUSCULOSKELETAL: head is normocephalic and atraumatic, somnolent so cannot assess but doesn't appear to have a focal deficit. Generalized weakness is present. SKIN: warm and dry, ecchymosis on left mid-axillary line. NEUROLOGIC: CN II through XII grossly intact, somnolent and cannot fully assess. Results & Data Results & Data ([facility]) Vital Signs (Past 12 Hours) Vital Signs Temp Pulse Pulse Resp BP Pulse Ox 04/24/20 14:57 36.8 C 110 H 114 H 22 114/70 94 04/24/20 12:20 37.0 C 123 H 20 145/84 H 91 04/24/20 08:00 110 H 04/24/20 07:20 109 H 22 90 04/24/20 07:12 36.6 C 108 H 20 129/83 93 Laboratory Results Short CBC 04/24/20 Range/Units 09:52 WBC 9.22 (4.8-10.8) K/uL Hgb 11.2 L (12.0-16.0) g/dL Hct 34.4 L (37-47) % Plt Count 139 D (130-400) K/uL BMP 04/23/20 04/24/20 19:58 09:52 Sodium 148 H 153 H Potassium 3.2 L 3.1 L Chloride 111 H 113 H Carbon Dioxide 27 29 BUN 23 H 23 H Creatinine 0.76 0.70 Glucose 105 H 116 H Calcium 8.5 8.9 Diagnostic Findings XR chest 1V portable HISTORY: hypoxia COMPARISON: Chest 04/23/2020. FINDINGS: No pneumothorax. The heart remains mildly enlarged. Interstitial thickening and hazy airspace opacities have slightly improved. There are trace bilateral pleural effusions. Right jugular Port-A-Cath remains at the SV. IMPRESSION: Improved aeration within the lungs. This may represent resolving edema/pneumonia. Medications Administered Current Inpatient Medications Lipase/Protease/Amylase (Pancreaze 69768 Unit) 5 cap PO TIDM [facility] Stop: 05/20/20 07:59 Last Admin: 04/23/20 08:12 Dose: Not Given Documented by: Desipramine HCl (Norpramin) 50 mg PO TIDM [facility] Stop: 05/20/20 07:59 Last Admin: 04/23/20 08:12 Dose: Not Given Documented by: Desipramine HCl (Norpramin) 100 mg PO HS [facility] Stop: 05/19/20 20:59 Last Admin: 04/22/20 20:50 Dose: 100 mg Documented by: Fluticasone Furoate (Arnuity Ellipta 100mcg) 1 puffs INH QAM [facility] Stop: 05/20/20 08:59 Last Admin: 04/24/20 09:47 Dose: 1 puffs Documented by: Furosemide (Lasix) 40 mg PO BID17 [facility] Stop: 05/23/20 08:59 Last Admin: 04/23/20 08:04 Dose: Not Given Documented by: Heparin Sodium (Porcine) (Heparin Sodium (Porcine)) 5,000 units SQ Q12 [facility] Stop: 05/20/20 11:29 Last Admin: 04/22/20 08:19 Dose: 5,000 units Documented by: Heparin Sodium (Porcine) (Heparin Sod 100 Unit/Ml Flush) 5 ml FLUSH PRN PRN PRN Reason: Flush Stop: 05/23/20 06:14 Hydrocortisone (Cortef) 20 mg PO BID17 [facility] Last Admin: 04/23/20 08:04 Dose: Not Given Documented by: Hydrocortisone (Cortef) 10 mg PO BID17 [facility] Ceftriaxone Sodium 2,000 mg/ (Dextrose) 70 mls @ 140 mls/hr IV Q24H [facility] Stop: 04/30/20 22:59 Last Infusion: 04/24/20 00:11 Dose: Infused Documented by: Pantoprazole Sodium 40 mg/ (Syringe) 10 mls @ 5 mls/min IV BID [facility] Stop: 05/23/20 09:29 Last Admin: 04/24/20 08:59 Dose: 5 mls/min Documented by: Hydrocortisone Sodium (Succinate 50 mg/ Syringe) 1 mls @ 4 mls/min IV Q12H [facility] Stop: 05/23/20 09:59 Last Admin: 04/24/20 08:59 Dose: 4 mls/min Documented by: Acetaminophen (Ofirmev) 1,000 mg in 100 mls @ 400 mls/hr IV Q8H PRN PRN Reason: Pain or Fever Stop: 04/26/20 19:59 Dextrose (D5w) 1,000 mls @ 150 mls/hr IV .Q6H40M [facility] Stop: 04/25/20 00:34 Last Admin: 04/24/20 11:41 Dose: 150 mls/hr Documented by: Ioversol (Optiray 320 100ml) 93 ml IV ONCE PRN PRN Reason: Interaction Checking Stop: 04/26/20 17:21 Last Admin: 04/22/20 17:22 Dose: 93 ml Documented by: Ioversol (Optiray 320 125ml) 125 ml IV ONCE PRN PRN Reason: Interaction Checking Stop: 04/27/20 03:03 Last Admin: 04/23/20 03:04 Dose: 118 ml Documented by: Ipratropium [place] (Atrovent 0.02% 0.5mg/2.5ml) 0.5 mg INH Q6R PRN PRN Reason: SOB/wheezing Stop: 05/23/20 06:59 Levalbuterol HCl (Xopenex 1.25mg/0.5ml Neb) 1.25 mg INH Q6R PRN PRN Reason: SOB/wheezing Stop: 05/23/20 06:59 Metoprolol Tartrate (Lopressor) 12.5 mg PO BID [facility] Stop: 05/23/20 08:59 Last Admin: 04/23/20 08:13 Dose: Not Given Documented by: Montelukast Sodium (Singulair) 10 mg PO [facility] Stop: 05/19/20 20:59 Last Admin: 04/22/20 20:49 Dose: 10 mg Documented by: Multivitamins (Multivitamin Tab) 1 tab PO DAILY [facility] Stop: 05/20/20 08:59 Last Admin: 04/23/20 08:13 Dose: Not Given Documented by: Oxycodone HCl (Roxicodone Immediate Rel) 5 mg PO Q4H PRN PRN Reason: Pain Stop: 05/04/20 04:46 Last Admin: 04/21/20 18:51 Dose: 5 mg Documented by: Pantoprazole Sodium (Protonix) 40 mg PO BID [facility] Stop: 05/19/20 20:59 Last Admin: 04/23/20 08:13 Dose: Not Given Documented by: Pregabalin (Lyrica) 100 mg PO BID [facility] Stop: 05/24/20 11:29 Last Admin: 04/24/20 11:46 Dose: 100 mg Documented by: Pyridoxine HCl (Vitamin B-6) 100 mg PO BID [facility] Stop: 05/19/20 20:59 Last Admin: 04/23/20 08:13 Dose: Not Given Documented by: Risperidone (Risperdal) 3 mg PO [facility] Stop: 05/21/20 20:59 Last Admin: 04/22/20 20:50 Dose: 3 mg Documented by: Ropinirole HCl (Requip) 0.25 mg PO [facility] Stop: 05/19/20 20:59 Last Admin: 04/22/20 20:50 Dose: 0.25 mg Documented by: Tamsulosin HCl (Flomax) 0.4 mg PO [facility] Stop: 05/22/20 20:59 Last Admin: 04/22/20 20:50 Dose: 0.4 mg Documented by: Umeclidinium/Vilanterol (Anoro Ellipta 62.5/25 Mcg Inh) 1 puffs INH DAILY [facility] Stop: 05/20/20 08:59 Last Admin: 04/24/20 09:49 Dose: 1 puffs Documented by:
[2020-04-24 17:56] LABS: Calcium 8.6 mg/dl (8.5-10.1); Creatinine Clr Calc Pharmacy 74.6 ml/min; Est GFR (African American) 102.2; Est GFR (Non-African American) 88.1
[2020-04-24 18:44] LABS: Base Excess ABG 8.2 mEq/L (-9-1.8); HCO3 ABG 33 mmol/L (19-24); Oxygen Saturation ABG 99.8 % (90-95); PCO2 ABG 47 mmHg (35-46); PO2 ABG 294 mmHg (80-95); pH ABG 7.47 (7.35-7.45)
[2020-04-24 18:45] LABS: Allen Test Pos (Pos)
[2020-04-24] MEDS ORDERED: CHLOROTHIAZIDE SODIUM 500 MG in DEXTROSE 5% 50 ML IV ONE (19:15)
--- NOTE | 2020-04-24 19:21 | XRay Report ---
XR chest 1V portable HISTORY: hypoxia COMPARISON: Chest 04/23/2020. FINDINGS: No pneumothorax. The heart remains mildly enlarged. Interstitial thickening and hazy airspa ce opacities have slightly improved. There are trace bilateral pleural effusions. Right jugular Port- A-Cath remains at the SVC. IMPRESSION: Improved aeration within the lungs. This may represent resolving edema/pneumonia. ACT 112: Negative or not required by law. Electronically signed by: Noel Crenshaw M.D. 04/24/2020 7:20 PM
[2020-04-24] MEDS: POTASSIUM ACETATE 10 MEQ in 0.9 % SODIUM CHLORIDE 100 ML IV SCH ×2 (20:25→21:33)
[2020-04-24 21:12] LABS: Creatinine Urine Random 57.7 mg/dl
[2020-04-24] MEDS: cefTRIAXone SODIUM 2,000 MG in DEXTROSE 5% 50 ML IV SCH (23:43)
[2020-04-24] MEDS: POTASSIUM CHLORIDE / WTR 10 MEQ/100 ML PLCT IV SCH (23:43)
[2020-04-24 23:58] LABS: BUN Creatinine Ratio 31.1 (10-20); Calcium 8.5 mg/dl (8.5-10.1); Creatinine Clr Calc Pharmacy 75.6 ml/min; Est GFR (African American) 103.9; Est GFR (Non-African American) 89.7; Potassium 2.9 mmol/L (3.5-5.1)
[2020-04-25] MEDS: POTASSIUM CHLORIDE / WTR 10 MEQ/100 ML PLCT IV SCH ×3 (00:41→02:24)
[2020-04-25 06:16] LABS: Mean Corpuscular Hgb Conc 32.6 g/dL (32-36)
[2020-04-25] MEDS: HEPARIN SOD 5,000 UNIT/0.5 ML VIAL SQ SCH ×3 (06:18→20:30)
[2020-04-25 06:31] LABS: Hematocrit (blood only) 35.3 % (37-47); Hemoglobin 11.5 g/dL (12.0-16.0); Mean Corpuscular Volume 76.7 fL (80-100); RDW Coefficient of Variation 17.7 % (11.5-14.5); RDW Standard Deviation 49.9 fL (36.4-46.3); White Blood Count 7.96 K/uL (4.8-10.8)
[2020-04-25 06:39] LABS: Mean Platelet Volume 10.3 fL (7.4-10.4); Platelet Count 145 K/uL (130-400); Platelet Estimate Normal (Normal)
[2020-04-25 06:46] LABS: BUN Creatinine Ratio 30.1 (10-20); Creatinine Clr Calc Pharmacy 73.5 ml/min; Est GFR (African American) 100.4; Est GFR (Non-African American) 86.7; Magnesium 1.7 mg/dl (1.8-2.4); Potassium 3.1 mmol/L (3.5-5.1)
[2020-04-25 06:51] LABS: Phosphorus 2.8 mg/dl (2.5-4.9)
[2020-04-25] MEDS: UMECLIDINIUM/VILANTEROL 62.5/25MCG 7 PUFFS/INHALER INH SCH (07:54)
[2020-04-25] MEDS: FLUTICASONE FUROATE 100MCG 14 PUFFS/INHALER INH SCH (07:54)
[2020-04-25] MEDS: PREGABALIN 100 MG CAP PO SCH ×2 (08:10→19:58)
[2020-04-25] MEDS: PANTOprazole 40 MG in SYRINGE 0 ML IV SCH ×2 (08:10→20:30)
--- NOTE | 2020-04-25 08:36 | Hospitalist Progress Note ---
Date of Service April 25, 2020 Assessment & Plan (1) Acute respiratory failure: Overall this is a patient who didn't need much in the way of fluid resuscitation with septic shock based on what was recorded, who appeared euvolemic when transferred out of the ICU (04/22), but developed pulmonary edema and respiratory distress that evening, received Lasix 20mg IV and diuresed 4.5L net in 6-8 hours;hypoxia responded well to BIPAP. On 04/23 in the morning (that next morning) she had difficulty coming off the BIPAP 2/2 persistent pulmonary edema and was given an additional dose of Lasix 20mg IV with another net couple Liters off. She was able to come off the BIPAP for a few hours but then went back on it in the evening (04/23). A repeat CXR at that time revealed improving pulmonary edema. Lasix 40mg IV was given at that time. She diuresed approx 3L overnight. Na (04/24) was 153. He was oxygenating better on nasal canula throughout the day (04/24). D5W was started for hypernatremia (NA 153) and confusion/lethargy 04/24 morning, however, fluid stopped after 1L (1700) for worsening hypoxia and increased pulmonary edema. Responded very well to the BIPAP and respiratory was on BIPAP overnight and not able to wean. Diuril given yesterday as Na jewels from 153 (0700) to 154 (1700), in an effort to continue the diuresis. Dosed with Diuril 500mg IV instead. Alkalosis is present. Nephrology consulted. Stable respiratory status on the BIPAP. Repeat BMP at 11pm 04/24 revealed the Na decreasing to 152, K 2.9 with an additional 30 MEq of KCl yet to give, and nurse reports she has woken up and is asking him questions. (2) Abdominal pain: Nonspecific, when she had pain, an ileus appeared on imaging. However, she has now had a BM and eaten food today, so this has resolved. No further workup as abdominal pain appears to have subsided. (3) Sepsis: Severe Sepsis with septic shock, not POA. Septic shock 2/2 obstructive uropathy with infection present. She underwent ureteral stent placement with drainage of infectious source (04/20). She came off pressor support shortly after. She continues on ceftriaxone for E coli bacteremia, and stress dose steroids which will need to be continually weaned. (4) Shock: 2/2 to sepsis, Resolved, she is now on floor. (5) Obstructive uropathy: s/p ureteral stent by Urology placed 04/21. Good drainage achieved during the procedure. Manage pain as above and definitive stone management planned for outpatient setting. (6) Gram-negative bacteremia: FQ-resistant E coli. Per ID specialist, will continue with ceftriaxone and transition to oral cefdinir when tolerant of PO for total 14 day course. +Staph await final ID (7) Acute pyelonephritis: plan as above. (8) Thrombocytopenia: Acute hypernatremia, likely related to consumption from sepsis. HIT AB was negative. PLT count improved to 135K, resumed heparin. (9) JAVI (acute kidney injury): worsened renal function in setting of sepsis syndrome. resolved. (10) Chronic venous insufficiency: S/P left greater saphenous vein ablation on 04/18/[address] Otoole (11) Occlusion of left saphenous vein: *L Saphenous vein thrombus due to saphenous vein ablation (12) Complex sleep apnea syndrome: Bipap HS (13) Depression: Continue escitalopram, risperidone (14) Acute pulmonary edema: plan as above, currently doing well on BIPAP (15) Hypernatremia: Hypertonic hypernatremia 2/2 loop diuretic administration with plan as above. Nephrology to reassess volume status today. (16) DVT prophylaxis: Heparin Conditional Code-Ok to intubate, no CPR Dispo-continue PCU monitoring until she is euvolemic again. Once we can get there successfully and electrolytes are corrected, she may be discharge with further stone management as outpatient. Cefdinir to complete 14 day course. Rehab with prolonged critical illness. ROS-No Headache, No Visual Changes, No Nausea, No Vomiting, No Fever, No Chills, No Neck Pain or Stiffness, No Chest Pain, No Palpitations, No SOB, No HULL, No Cough, No Sputum, No Wheezing, No Abdominal Pain, No Diarrhea, No Hematemesis, No Hemoptysis, No Unexpected Weight Loss, No Flank pain, No Melena, No Hematochezia, No Frequency, No Urgency, No Burning, No Hematuria, No Rashes, No Diaphoresis. Appetite is Normal Physical Exam Gen-AAO x 3, NAD, Afebrile, weak, on bipap, obese Head-NCAT, EOMI, PERRLA, Anicteric Sclera, No Posterior Pharyngeal Erythema Neck-Supple, No JVD, No Thyromegaly, No Masses, No LAD, No Bruits Lungs-Clear to Auscultation Bilaterally, No Rales, No Rhonchi, No Wheezing, No Crepitus Chest-No S4, +S1, +S2, No S3, No Murmurs, No Rubs, No Gallops, No Ectopy Abdomen-Soft, Bowel Sounds Present, Non Tender, Non Distended, No Hepatomegaly, No Splenomegaly, No Palpable Masses, No Rebound, No Rigidity, No Guarding Musculoskeletal-Full Range of Motion Bilaterally, No CVAT Extremities-No Cyanosis, No Clubbing, No Edema Nuero-Cranial Nerves II-XII grossly intact, Motor WNL, DTRs WNL, Strength WNL, Non Focal Psych-Normal Mood Admission and Anticipated Discharge Date Admission Date: April 19, 2020 Results & Data Results & Data ([facility]) Vital Signs (Past 12 Hours) Vital Signs Temp Pulse Pulse Resp BP BP Pulse Ox 04/25/20 08:00 36.6 C 99 H 20 126/81 96 04/25/20 07:59 99 H 29 H 93 04/25/20 04:38 36.8 C 99 H 22 124/77 98 04/25/20 03:51 90 24 95 04/25/20 00:07 36.8 C 106 H 20 123/79 95 04/24/20 23:33 104 H 24 97
[2020-04-25] MEDS ORDERED: POTASSIUM CHLORIDE 20 MEQ/15 ML UDC PO STA (09:54)
--- NOTE | 2020-04-25 10:09 | Nephrology Consultation ---
Date of Consultation April 25, 2020 Assessment & Plan (1) Hypernatremia: Patient with hypernatremia due to inadequate free water intake. Free water deficit of 5.5 L. This will be corrected of at least 2 days. Patient is also hypoxic requiring BiPAP. -We will be conservative with the correction of hypernatremia. We will start with D5 water at 80 mL/h. Monitor sodium daily. (2) Acute respiratory failure: Likely multifactorial including atelectasis, LARRY, asthma. Does not appear to be pulmonary edema. CXR yesterday showed improving aeration. Continue BiPAP as needed and encourage mobilization and incentive spirometry. No need for IV diuretics (3) Obstructive uropathy: Due to obstructive kidney stones. Patient status post a right ureteral stent. She will need additional work-up per outpatient and stone prevention therapies. She can follow-up with nephrology on discharge (4) Hypokalemia: Will give potassium chloride 40 mEq once this morning. We will follow-up on morning potassium History of Present Illness Reason for Consultation: Hypernatremia Requesting Physician: Nam Quintana DO Attending Physician: Nam Quintana DO History of Present Illness This is a 69-year-old female with complex past medical history including diastolic CHF, asthma, malabsorption syndrome, depression, obstructive sleep apnea and chronic venous insufficiency who was admitted on 04/19/2020 with urosepsis in the setting of a right obstructive stone. She underwent cystoscopy and right ureteral stent. She has been getting antibiotics. She required ICU stay for management of sepsis. She is now on the floor. On admission her sodium was 132 but has progressively increased and now ranging between 152-153 for the past 48 hours. She is also hypokalemic at 3.1 today. Main complaint today is shortness of breath. She is requiring BiPAP and desaturates off BiPAP. She is n.p.o. She required IV diuretics for the past few days and her cu mulative fluid balance is negative about 7 L. Chest x-ray yesterday showed some improvement in aeration. She was doing PT at the time of my visit and able to stand by the side of the bed but remains profoundly weak Allergies Allergy/AdvReac Type Severity Reaction Status Date / Time Penicillins Allergy Intermediate RASH ALL Verified 04/19/20 14:59 OVER UPPER BODY NO RESP SYMPTOMS piperacillin Allergy Intermediate RASH Verified 04/19/20 14:59 Sulfa (Sulfonamide Allergy Intermediate Generalized Verified 04/19/20 14:59 Antibiotics) Rash tazobactam Allergy Intermediate RASH ALL Verified 04/19/20 14:59 OVER UPPER BODY NO RESP SYMPTOMS bupropion Allergy Mild NERVOUS Verified 04/19/20 14:59 REACTION Cephalosporins Allergy Mild RASH, Verified 04/19/20 14:59 DIARRHEA levofloxacin Allergy Mild RASH,TURNED Verified 04/19/20 14:59 RED prochlorperazine Allergy Mild NERVOUS Verified 04/19/20 14:59 REACTION promethazine Allergy Mild UNKNOWN Verified 04/19/20 14:59 tobramycin Allergy Mild UNKNOWN Verified 04/19/20 14:59 bethanechol Allergy Unknown RASH, Verified 04/19/20 14:59 "FEELS FUNNY" clindamycin Allergy Unknown Unknown Verified 04/19/20 14:59 dipyridamole Allergy Unknown UNKNOWN Verified 04/19/20 14:59 droperidol Allergy Unknown Unknown Verified 04/19/20 14:59 morphine Allergy Unknown NERVOUS Verified 04/19/20 14:59 REACTION TO IT aspirin AdvReac Severe BLEEDING Verified 04/19/20 14:59 tedizolid AdvReac Severe GI SYMPTOMS Verified 04/19/20 14:59 ertapenem AdvReac Intermediate RASH Verified 04/19/20 14:59 cephalexin AdvReac Mild GI SYMPTOMS Verified 04/19/20 14:59 Home Medications Home Medications Medication Instructions Recorded Confirmed Type colesevelam 625 mg tablet 625 mg PO TID tab 06/17/18 04/19/20 History desipramine 50 mg tablet 50 mg PO TIDM tab 06/17/18 04/19/20 History escitalopram oxalate 20 mg tablet 20 mg PO QAM tab 06/17/18 04/19/20 History lorazepam 0.5 mg tablet 0.5 mg PO TID PRN tab 06/17/18 04/19/20 History montelukast 10 mg tablet 10 mg PO HS 06/17/18 04/19/20 History risperidone 3 mg tablet 3 mg PO HS tab 06/17/18 04/19/20 History Centrum Silver Women 1 tab PO DAILY 05/05/19 04/19/20 History Creon 4 cap PO TID 05/05/19 04/19/20 History Myrbetriq 50 mg PO QAM 05/05/19 04/19/20 History cholecalciferol (vitamin D3) 2,000 unit PO QDD 05/05/19 04/19/20 History [Vitamin D3] desipramine 100 mg PO HS 05/05/19 04/19/20 History diclofenac sodium 2 g TOPICAL DIRECTED 05/05/19 04/19/20 History ipratropium-albuterol 3 ml INHALATION Q4H PRN 05/05/19 04/19/20 History mupirocin 1 applic TOPICAL BID PRN 05/05/19 04/19/20 History pyridoxine (vitamin B6) [Vitamin 100 mg PO BID 05/05/19 04/19/20 History B-6] metoprolol tartrate 25 mg tablet 12.5 mg PO BID tab 05/17/19 04/19/20 History omeprazole magnesium 20 mg 20 mg PO BID tab 05/17/19 04/19/20 History tablet,delayed release albuterol sulfate 90 mcg/actuation 2 puffs INH Q4H PRN #1 ea 10/17/19 04/19/20 Rx breath activated powder inhaler fluticasone fur. 100 mcg-umeclid 1 puffs INH QAM #60 ea 12/12/19 04/19/20 Rx 62.5 mcg-vilant 25 mcg inhalat.powder ropinirole 0.25 mg tablet 0.25 mg PO HS 30 Days #30 tab 03/06/20 04/19/20 Rx furosemide [Lasix] 80 mg PO BID 03/30/20 04/19/20 History ibuprofen [Advil] 400 mg PO Q6H PRN 03/30/20 04/19/20 History oxycodone-acetaminophen 1 tab PO Q6H PRN 04/19/20 04/19/20 History potassium chloride [Klor-Con M20] 20 meq PO BID 04/19/20 04/19/20 History Patient History Medical History Abscess of skin of left wrist Chronic diastolic (congestive) heart failure (Chronic) follows w/ Dr. Otoole Chronic sinusitis Deep vein thrombosis RLE - 15-20 years ago - immobility - treated w/ AC. Depression Enterocutaneous fistula (Inactive) History of jejunostomy tube placement History of kidney stones Morbid obesity MRSA (methicillin resistant staph aureus) culture positive Left wrist Osteoarthritis Pancreatic insufficiency Peripheral neuropathy Port-A-Cath in place PUD (peptic ulcer disease) PVC (premature ventricular contraction) (Inactive) Short bowel syndrome (Chronic) Urinary leakage Wrist fracture, left Surgical History History of appendectomy History of cardiac cath 2-3 months ago - [place] - no stents History of cholecystectomy History of colonoscopy (~2015) History of esophagogastroduodenoscopy (EGD) (~2015) History of gastrointestinal surgery multiple History of joint replacement Rt thumb History of knee replacement procedure of right knee History of lithotripsy History of open reduction and internal fixation (ORIF) procedure LUE History of partial gastrectomy History of sinus surgery History of tonsillectomy and adenoidectomy History of total abdominal hysterectomy and bilateral salpingo-oophorectomy Family History Mother Family history of diabetes mellitus Sister Family history of diabetes mellitus Father Esophageal cancer Other Family history non-contributory No family history of adverse response to anesthesia Social History Smoking Status: Never smoker Second Hand Exposure: Yes (parents smoke); Hx Alcohol Use: No Hx Substance Use: No Preferred Language: Syrian Communication Ability: Effective 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 Gastrointestinal: Abdomen is soft, non distended, non tender, bowel sounds are present CVS: Regular rate and rhythm. No murmurs, rubs or gallops Musculoskeletal: No joint or muscle tenderness Extremities: Non tender, no edema, peripheral pulses are present Neuro: Oriented, no tremors, no focal neurological deficits Skin: No rashes Results & Data Vital Signs (Past 12 Hours) Vital Signs Temp Pulse Pulse Resp BP BP Pulse Ox 04/25/20 08:00 36.6 C 99 H 20 126/81 96 04/25/20 07:59 99 H 29 H 93 04/25/20 04:38 36.8 C 99 H 22 124/77 98 04/25/20 03:51 90 24 95 04/25/20 00:07 36.8 C 106 H 20 123/79 95 04/24/20 23:33 104 H 24 97 Laboratory Results 04/25/20 05:46 04/24/20 04/25/20 04/25/20 09:52 05:46 05:46 WBC 9.22 7.96 RBC 4.53 4.60 MCV 75.9 L 76.7 L MCH 24.7 L 25.0 MCHC 32.6 32.6 RDW Std Deviation 49.7 H 49.9 H RDW Coeff of David 17.9 H 17.7 H Plt Count 139 D 145 MPV 10.1 10.3 Phosphorus 2.8
[2020-04-25] MEDS: DEXTROSE 5% 1,000 ML IV SCH ×2 (11:12→22:38)
[2020-04-25] MEDS: HYDROCORTISONE SOD 50 MG in SYRINGE 0 ML IV SCH ×2 (11:12→20:31)
[2020-04-25] MEDS ORDERED: MoRPHine SULFATE 2 MG/ML CARP IV STA (22:31)
[2020-04-25] MEDS: cefTRIAXone SODIUM 2,000 MG in DEXTROSE 5% 50 ML IV SCH (22:38)
[2020-04-26] MEDS: HEPARIN SOD 5,000 UNIT/0.5 ML VIAL SQ SCH ×3 (06:10→21:35)
[2020-04-26 06:39] LABS: Basophils # (auto) 0.01 K/uL (0-0.2); Basophils % (auto) 0.1 %; Eosinophils # (auto) 0.03 K/uL (0-0.5); Eosinophils % (auto) 0.4 %; Hematocrit (blood only) 34.3 % (37-47); Hemoglobin 10.9 g/dL (12.0-16.0); Immature Granulocytes # (auto) 0.09 K/uL (0.00-0.02); Immature Granulocytes % (auto) 1.3 %; Lymphocytes # (auto) 1.16 K/uL (1.2-3.4); Lymphocytes % (auto) 16.4 %; Mean Corpuscular Hgb Conc 31.8 g/dL (32-36); Mean Corpuscular Volume 78.7 fL (80-100); Mean Platelet Volume 10.7 fL (7.4-10.4); Monocytes # (auto) 0.48 K/uL (0.11-0.59); Monocytes % (auto) 6.8 %; Platelet Count 214 K/uL (130-400); RDW Coefficient of Variation 17.8 % (11.5-14.5); RDW Standard Deviation 51.2 fL (36.4-46.3); Red Blood Count 4.36 M/uL (4.2-5.4); White Blood Count 7.07 K/uL (4.8-10.8)
--- NOTE | 2020-04-26 06:55 | Hospitalist Progress Note ---
Date of Service April 26, 2020 Assessment & Plan (1) Acute respiratory failure: Overall this is a patient who didn't need much in the way of fluid resuscitation with septic shock based on what was recorded, who appeared euvolemic when transferred out of the ICU (04/22), but developed pulmonary edema and respiratory distress that evening, received Lasix 20mg IV and diuresed 4.5L net in 6-8 hours;hypoxia responded well to BIPAP. On 04/23 in the morning (that next morning) she had difficulty coming off the BIPAP 2/2 persistent pulmonary edema and was given an additional dose of Lasix 20mg IV with another net couple Liters off. She was able to come off the BIPAP for a few hours but then went back on it in the evening (04/23). A repeat CXR at that time revealed improving pulmonary edema. Lasix 40mg IV was given at that time. She diuresed approx 3L overnight. Na (04/24) was 153. He was oxygenating better on nasal canula throughout the day (04/24). D5W was started for hypernatremia (NA 153) and confusion/lethargy 04/24 morning, however, fluid stopped after 1L (1700) for worsening hypoxia and increased pulmonary edema. Responded very well to the BIPAP and respiratory was on BIPAP overnight and not able to wean. Diuril given yesterday as Na jewels from 153 (0700) to 154 (1700), in an effort to continue the diuresis. Dosed with Diuril 500mg IV instead. Alkalosis is present. Nephrology on case. Stable respiratory status on the BIPAP. Repeated BMP at 11pm 04/24 revealed the Na decreasing to 152, K 2.9 with an additional 30 MEq of KCl yet to give. (2) Abdominal pain: Nonspecific, when she had pain, an ileus appeared on imaging. However, she has now had a BM and eaten food today, so this has resolved. No further workup as abdominal pain appears to have subsided. (3) Sepsis: Severe Sepsis with septic shock, not POA. Septic shock 2/2 obstructive uropathy with infection present. She underwent ureteral stent placement with drainage of infectious source (04/20). She came off pressor support shortly after. She continues on ceftriaxone for E coli bacteremia, and stress dose steroids which will need to be continually weaned. (4) Shock: 2/2 to sepsis, Resolved, she is now on floor. (5) Obstructive uropathy: s/p ureteral stent by Urology placed 04/21. Good drainage achieved during the procedure. Manage pain as above and definitive stone management planned for outpatient setting. (6) Gram-negative bacteremia: FQ-resistant E coli. Per ID specialist, will continue with ceftriaxone and transition to oral cefdinir when tolerant of PO for total 14 day course. +Staph await final ID (7) Acute pyelonephritis: plan as above. (8) Thrombocytopenia: Acute hypernatremia, likely related to consumption from sepsis. HIT AB was negative. PLT count improved to 135K, resumed heparin. (9) JAVI (acute kidney injury): worsened renal function in setting of sepsis syndrome. resolved. (10) Chronic venous insufficiency: S/P left greater saphenous vein ablation on 04/18/[address] Otoole (11) Occlusion of left saphenous vein: *L Saphenous vein thrombus due to saphenous vein ablation (12) Complex sleep apnea syndrome: Bipap HS (13) Depression: Continue escitalopram, risperidone (14) Acute pulmonary edema: plan as above, currently doing well on BIPAP (15) Hypernatremia: Hypertonic hypernatremia 2/2 loop diuretic administration with plan as above. Nephrology to reassess volume status today. (16) DVT prophylaxis: Heparin Conditional Code-Ok to intubate, no CPR Dispo-continue PCU monitoring until she is euvolemic again. Once we can get there successfully and electrolytes are corrected, she may be discharge with further stone management as outpatient. Cefdinir to complete 14 day course. Rehab with prolonged critical illness. labs checked ROS-No Headache, No Visual Changes, No Nausea, No Vomiting, No Fever, No Chills, No Neck Pain or Stiffness, No Chest Pain, No Palpitations, No SOB, No HULL, No Cough, No Sputum, No Wheezing, No Abdominal Pain, No Diarrhea, No Hematemesis, No Hemoptysis, No Unexpected Weight Loss, No Flank pain, No Melena, No Hematochezia, No Frequency, No Urgency, No Burning, No Hematuria, No Rashes, No Diaphoresis. Appetite is Normal Physical Exam Gen-AAO x 3, NAD, Afebrile, weak, on bipap, obese, looks a little better Head-NCAT, EOMI, PERRLA, Anicteric Sclera, No Posterior Pharyngeal Erythema Neck-Supple, No JVD, No Thyromegaly, No Masses, No LAD, No Bruits Lungs-Clear to Auscultation Bilaterally, No Rales, No Rhonchi, No Wheezing, No Crepitus Chest-No S4, +S1, +S2, No S3, No Murmurs, No Rubs, No Gallops, No Ectopy Abdomen-Soft, Bowel Sounds Present, Non Tender, Non Distended, No Hepatomegaly, No Splenomegaly, No Palpable Masses, No Rebound, No Rigidity, No Guarding Musculoskeletal-Full Range of Motion Bilaterally, No CVAT Extremities-No Cyanosis, No Clubbing, No Edema Nuero-Cranial Nerves II-XII grossly intact, Motor WNL, DTRs WNL, Strength WNL, Non Focal Psych-Normal Mood Admission and Anticipated Discharge Date Admission Date: April 19, 2020 Results & Data Results & Data ([facility]) Vital Signs (Past 12 Hours) Vital Signs Temp Pulse Pulse Resp BP Pulse Ox 04/26/20 04:37 36.6 C 86 24 137/75 94 04/26/20 03:50 93 H 29 H 95 04/25/20 23:39 36.7 C 104 H 24 127/84 94 04/25/20 22:11 104 H 30 H 95 04/25/20 20:13 96 H 27 H 90 04/25/20 20:07 97 H 32 H 132/84 90 04/25/20 19:20 97 H 26 H 97 04/25/20 19:07 36.6 C 94 H 23 124/80 97
[2020-04-26 07:10] LABS: Albumin Globulin Ratio 0.5 (0.9-2); Albumin Level 2.2 gm/dl (3.4-5.0); BUN Creatinine Ratio 29.2 (10-20); Bilirubin,Total 0.4 mg/dl (0.2-1); Calcium 8.6 mg/dl (8.5-10.1); Creatinine Clr Calc Pharmacy 88.2 ml/min; Est GFR (African American) 109.3; Est GFR (Non-African American) 94.3; Phosphorus 2.8 mg/dl (2.5-4.9); Potassium 2.9 mmol/L (3.5-5.1); Total Protein 6.2 gm/dl (6.4-8.2)
[2020-04-26] MEDS: FLUTICASONE FUROATE 100MCG 14 PUFFS/INHALER INH SCH (08:02)
[2020-04-26] MEDS: UMECLIDINIUM/VILANTEROL 62.5/25MCG 7 PUFFS/INHALER INH SCH (08:02)
[2020-04-26] MEDS: PANTOprazole 40 MG in SYRINGE 0 ML IV SCH ×2 (08:03→21:34)
[2020-04-26] MEDS: PREGABALIN 100 MG CAP PO SCH ×2 (08:05→21:34)
[2020-04-26] MEDS: SODIUM CHLORIDE 0.9% IV SCH ×2 (09:56→12:13)
[2020-04-26] MEDS: POTASSIUM ACETATE IV SCH ×2 (09:56→12:13)
[2020-04-26] MEDS: DEXTROSE 5% 1,000 ML IV SCH ×3 (09:57→19:45)
[2020-04-26] MEDS: HYDROCORTISONE SOD 50 MG in SYRINGE 0 ML IV SCH ×2 (09:57→21:34)
--- NOTE | 2020-04-26 10:19 | Nephrology Progress Note ---
Date of Service April 26, 2020 Assessment & Plan (1) Hypernatremia: Patient with hypernatremia due to inadequate free water intake. Free water deficit of 5.5 L. Sodium up to 158 this morning. This will be corrected of at least 2 days. Patient is also hypoxic on oxygen by facemask -We will increase the rate of D5 to 200 mL/h. We will repeat sodium at 3 PM today. (2) Acute respiratory failure: Likely multifactorial including atelectasis, LARRY, asthma. Does not appear to be pulmonary edema. CXR yesterday showed improving aeration. Continue BiPAP as needed and encourage mobilization and incentive spirometry. No need for IV diuretics (3) Obstructive uropathy: Due to obstructive kidney stones. Patient status post a right ureteral stent. She will need additional work-up per outpatient and stone prevention therapies. She can follow-up with nephrology on discharge (4) Hypokalemia: Will give potassium chloride 50 mEq iv once this morning. We will follow- up K this afternoon Admission and Anticipated Discharge Date Admission Date: April 19, 2020 Subjective Patient complaining of constipation. Breathing is about the same. She is now o n oxygen by facemask. Sodium is up trending. Review of Systems Review of Systems: All systems reviewed & are unremarkable except as noted in HPI & below Physical Exam Physical Exam: General exam: Appears comfortable on oxygen by facemask, no acute distress HEENT: Pupils are equal and reactive to light Neck: No JVD, neck is supple trachea is midline Respiratory system: Clear breath sounds bilaterally. Gastrointestinal: Abdomen is soft, non distended, non tender, bowel sounds are present CVS: Regular rate and rhythm. No murmurs, rubs or gallops Musculoskeletal: No joint or muscle tenderness Extremities: Non tender, no edema, peripheral pulses are present Neuro: Oriented, no tremors, no focal neurological deficits Skin: No rashes Results & Data ([facility]) Vital Signs (Past 12 Hours) Vital Signs Temp Pulse Pulse Resp BP Pulse Ox 04/26/20 08:53 36.8 C 70 22 129/80 93 04/26/20 04:37 36.6 C 86 24 137/75 94 04/26/20 03:50 93 H 29 H 95 04/25/20 23:39 36.7 C 104 H 24 127/84 94 Laboratory Results 04/26/20 05:42 04/26/20 04/26/20 05:42 05:42 WBC 7.07 RBC 4.36 MCV 78.7 L MCH 25.0 MCHC 31.8 L RDW Std Deviation 51.2 H RDW Coeff of David 17.8 H Plt Count 214 MPV 10.7 H Phosphorus 2.8 Albumin 2.2 L
[2020-04-26 15:58] LABS: BUN Creatinine Ratio 19.8 (10-20); Calcium 8.4 mg/dl (8.5-10.1); Creatinine Clr Calc Pharmacy 67.9 ml/min; Est GFR (African American) 91.2; Est GFR (Non-African American) 78.7
[2020-04-26 19:13] LABS: Potassium 5.1 mmol/L (3.5-5.1)
--- NOTE | 2020-04-26 22:31 | Electrocardiogram Report ---
Test Reason : Blood Pressure : / mmHG Vent. Rate : 101 BPM Atrial Rate : 101 BPM P-R Int : 200 ms QRS Dur : 082 ms QT Int : 346 ms P-R-T Axes : 075 -23 -50 degrees QTc Int : 448 ms Sinus tachycardia Voltage criteria for left ventricular hypertrophy T wave abnormality, consider inferior ischemia Abnormal ECG When compared with ECG of 23-APR-2020 03:30, QRS duration has decreased T wave inversion now evident in Inferior leads T wave inversion now evident in Anterior leads Confirmed by Nicho Lombardi ([id number]) on 04/26/2020 10:31:16 PM Referred By: REFERRED SELF Confirmed By:Nicho Lombardi
[2020-04-26] MEDS: cefTRIAXone SODIUM 2,000 MG in DEXTROSE 5% 50 ML IV SCH (23:03)
[2020-04-27] MEDS: DEXTROSE 5% 1,000 ML IV SCH ×2 (00:47→05:26)
[2020-04-27] MEDS: HEPARIN SOD 5,000 UNIT/0.5 ML VIAL SQ SCH ×3 (05:26→20:28)
[2020-04-27 06:39] LABS: Eosinophils # (auto) 0.11 K/uL (0-0.5); Eosinophils % (auto) 1.3 %; Hematocrit (blood only) 32.3 % (37-47); Hemoglobin 10.2 g/dL (12.0-16.0); Immature Granulocytes # (auto) 0.15 K/uL (0.00-0.02); Immature Granulocytes % (auto) 1.7 %; Lymphocytes # (auto) 1.38 K/uL (1.2-3.4); Lymphocytes % (auto) 15.7 %; Mean Corpuscular Hemoglobin 24.8 pg (25-34); Mean Corpuscular Hgb Conc 31.6 g/dL (32-36); Mean Corpuscular Volume 78.4 fL (80-100); Monocytes # (auto) 0.44 K/uL (0.11-0.59); Neutrophils % (auto) 76.3 %; Platelet Count 234 K/uL (130-400); RDW Coefficient of Variation 17.5 % (11.5-14.5); RDW Standard Deviation 49.5 fL (36.4-46.3); Red Blood Count 4.12 M/uL (4.2-5.4); White Blood Count 8.78 K/uL (4.8-10.8)
--- NOTE | 2020-04-27 06:49 | Hospitalist Progress Note ---
Date of Service April 27, 2020 Assessment & Plan (1) Acute respiratory failure: Overall this is a patient who didn't need much in the way of fluid resuscitation with septic shock based on what was recorded, who appeared euvolemic when transferred out of the ICU (04/22), but developed pulmonary edema and respiratory distress that evening, received Lasix 20mg IV and diuresed 4.5L net in 6-8 hours;hypoxia responded well to BIPAP. On 04/23 in the morning (that next morning) she had difficulty coming off the BIPAP 2/2 persistent pulmonary edema and was given an additional dose of Lasix 20mg IV with another net couple Liters off. She was able to come off the BIPAP for a few hours but then went back on it in the evening (04/23). A repeat CXR at that time revealed improving pulmonary edema. Lasix 40mg IV was given at that time. She diuresed approx 3L overnight. Na (04/24) was 153. He was oxygenating better on nasal canula throughout the day (04/24). D5W was started for hypernatremia (NA 153) and confusion/lethargy 04/24 morning, however, fluid stopped after 1L (1700) for worsening hypoxia and increased pulmonary edema. Responded very well to the BIPAP and respiratory was on BIPAP overnight and not able to wean. Diuril given yesterday as Na jewels from 153 (0700) to 154 (1700), in an effort to continue the diuresis. Dosed with Diuril 500mg IV instead. Alkalosis is present. Nephrology on case. Repeated BMP at 11pm 04/24 revealed the Na decreasing to 152, K 2.9 with an additional 30 MEq of KCl yet to give. Stable respiratory status on the BIPAP. Tolerated NC during the day yesterday, ate yesterday, feeling a lot better, Adv diet, ambulate, OOB (2) Abdominal pain: Nonspecific (3) Sepsis: Severe Sepsis with septic shock-resolved, not POA. Septic shock 2/2 obstructive uropathy with infection. She underwent ureteral stent placement with drainage of infectious source (04/20). She came off pressor support shortly after. She continues on ceftriaxone for E coli bacteremia, and stress dose steroids wean to PO. (4) Shock: 2/2 to sepsis, Resolved, she is now on floor. (5) Obstructive uropathy: s/p ureteral stent by Urology placed 04/21. Good drainage achieved during the procedure. Manage pain as above and definitive stone management planned for outpatient setting. DC alonzo today, replace if can't void (6) Gram-negative bacteremia: FQ-resistant E coli. Per ID specialist, will continue with ceftriaxone and transition to oral cefdinir when tolerant of PO for total 14 day course. +Staph await final ID (7) Acute pyelonephritis: plan as above. (8) Thrombocytopenia: Acute hypernatremia, likely related to consumption from sepsis. HIT AB was negative. PLT count improved to 135K, resumed heparin. (9) JAVI (acute kidney injury): worsened renal function in setting of sepsis syndrome. resolved. (10) Chronic venous insufficiency: S/P left greater saphenous vein ablation on 04/18/[address] Otoole (11) Occlusion of left saphenous vein: *L Saphenous vein thrombus due to saphenous vein ablation (12) Complex sleep apnea syndrome: Bipap HS (13) Depression: Continue escitalopram, risperidone (14) Acute pulmonary edema: plan as above, currently doing well on BIPAP (15) Hypernatremia: Hypertonic hypernatremia 2/2 loop diuretic administration with plan as above. Nephrology to reassess volume status today. (16) DVT prophylaxis: Heparin Conditional Code-Ok to intubate, no CPR Dispo-continue PCU monitoring until she is euvolemic again. Once we can get there successfully and electrolytes are corrected, she may be discharge with further stone management as outpatient. Cefdinir to complete 14 day course. Rehab with prolonged critical illness. labs checked ROS-No Headache, No Visual Changes, No Nausea, No Vomiting, No Fever, No Chills, No Neck Pain or Stiffness, No Chest Pain, No Palpitations, No SOB, No HULL, No Cough, No Sputum, No Wheezing, No Abdominal Pain, No Diarrhea, No Hematemesis, No Hemoptysis, No Unexpected Weight Loss, No Flank pain, No Melena, No Hematochezia, No Frequency, No Urgency, No Burning, No Hematuria, No Rashes, No Diaphoresis. Appetite is Normal Physical Exam Gen-AAO x 3, NAD, Afebrile, looks a little better each day Head-NCAT, EOMI, PERRLA, Anicteric Sclera, No Posterior Pharyngeal Erythema Neck-Supple, No JVD, No Thyromegaly, No Masses, No LAD, No Bruits Lungs-Clear to Auscultation Bilaterally, No Rales, No Rhonchi, No Wheezing, No Crepitus Chest-No S4, +S1, +S2, No S3, No Murmurs, No Rubs, No Gallops, No Ectopy Abdomen-Soft, Bowel Sounds Present, Non Tender, Non Distended, No Hepatomegaly, No Splenomegaly, No Palpable Masses, No Rebound, No Rigidity, No Guarding Musculoskeletal-Full Range of Motion Bilaterally, No CVAT Extremities-No Cyanosis, No Clubbing, No Edema Nuero-Cranial Nerves II-XII grossly intact, Motor WNL, DTRs WNL, Strength WNL, Non Focal Psych-Normal Mood Admission and Anticipated Discharge Date Admission Date: April 19, 2020 Results & Data Results & Data ([facility]) Vital Signs (Past 12 Hours) Vital Signs Temp Pulse Pulse Resp BP BP Pulse Ox 04/27/20 03:52 36.9 C 85 16 130/82 98 04/27/20 03:11 72 20 100 04/27/20 00:00 87 04/26/20 23:38 37 C 82 18 135/82 97 04/26/20 22:56 87 16 97 04/26/20 19:47 36.7 C 92 H 24 117/79 91
[2020-04-27 07:16] LABS: Magnesium 1.1 mg/dl (1.8-2.4); Phosphorus 3.3 mg/dl (2.5-4.9)
[2020-04-27] MEDS: HYDROCORTISONE SOD 50 MG in SYRINGE 0 ML IV SCH ×2 (09:11→20:28)
[2020-04-27] MEDS: PREGABALIN 100 MG CAP PO SCH ×2 (09:11→20:33)
[2020-04-27] MEDS: UMECLIDINIUM/VILANTEROL 62.5/25MCG 7 PUFFS/INHALER INH SCH (09:12)
[2020-04-27] MEDS: FLUTICASONE FUROATE 100MCG 14 PUFFS/INHALER INH SCH (09:12)
[2020-04-27] MEDS: PANTOprazole 40 MG in SYRINGE 0 ML IV SCH ×2 (09:14→20:33)
[2020-04-27 09:22] LABS: BUN Creatinine Ratio 18.7 (10-20); Calcium 7.7 mg/dl (8.5-10.1); Creatinine Clr Calc Pharmacy 106.2 ml/min; Est GFR (African American) 116.1; Est GFR (Non-African American) 100.2; Potassium 3.2 mmol/L (3.5-5.1)
[2020-04-27] MEDS ORDERED: POTASSIUM CHLORIDE 20 MEQ/15 ML UDC PO ONE (10:00)
--- NOTE | 2020-04-27 10:41 | Nephrology Progress Note ---
Date of Service April 27, 2020 Assessment & Plan (1) Hypernatremia: Patient with hypernatremia due to inadequate free water intake. Free water deficit of 5.5 L. Sodium peaked at 158 but but was 153 the day before and down to 142 today. We will stop D5 water. Patient can now drink and eat on her own. (2) Acute respiratory failure: Likely multifactorial including atelectasis, LARRY, asthma. Does not appear to be pulmonary edema. CXR yesterday showed improving aeration. Continue BiPAP as needed and encourage mobilization and incentive spirometry. No need for IV diuretics (3) Obstructive uropathy: Due to obstructive kidney stones. Patient status post a right ureteral stent. She will need additional work-up per outpatient and stone prevention therapies. She can follow-up with nephrology on discharge (4) Hypokalemia: Will give potassium chloride 40 mEqpo once this morning. We will follow- up K AM Admission and Anticipated Discharge Date Admission Date: April 19, 2020 Subjective She feels better today. Breathing is about the same. She is on oxygen by nasal cannula. Sodium is better today. Potassium still on the lower side. Review of Systems Review of Systems: All systems reviewed & are unremarkable except as noted in HPI & below Physical Exam Physical Exam: General exam: Appears comfortable, no acute distress HEENT: Pupils are equal and reactive to light Neck: No JVD, neck is supple trachea is midline Respiratory system: Clear breath sounds bilaterally. Gastrointestinal: Abdomen is soft, non distended, non tender, bowel sounds are present CVS: Regular rate and rhythm. No murmurs, rubs or gallops Musculoskeletal: No joint or muscle tenderness Extremities: Non tender, no edema, peripheral pulses are present Neuro: Oriented, no tremors, no focal neurological deficits Skin: No rashes Results & Data ([facility]) Vital Signs (Past 12 Hours) Vital Signs Temp Pulse Pulse Resp BP Pulse Ox 04/27/20 07:46 88 04/27/20 07:38 37.0 C 86 18 138/69 98 04/27/20 03:52 36.9 C 85 16 130/82 98 04/27/20 03:11 72 20 100 04/27/20 00:00 87 04/26/20 23:38 37 C 82 18 135/82 97 04/26/20 22:56 87 16 97 Laboratory Results 04/27/20 06:30 04/27/20 04/27/20 06:24 06:24 WBC 8.78 RBC 4.12 L MCV 78.4 L MCH 24.8 L MCHC 31.6 L RDW Std Deviation 49.5 H RDW Coeff of David 17.5 H Plt Count 234 MPV 10.0 Phosphorus 3.3
--- NOTE | 2020-04-27 15:40 | Electrocardiogram Report ---
Test Reason : Blood Pressure : / mmHG Vent. Rate : 102 BPM Atrial Rate : 102 BPM P-R Int : 158 ms QRS Dur : 082 ms QT Int : 336 ms P-R-T Axes : 046 -24 -59 degrees QTc Int : 437 ms Poor data quality, interpretation may be adversely affected Sinus tachycardia Voltage criteria for left ventricular hypertrophy T wave abnormality, consider inferior ischemia T wave abnormality, consider anterolateral ischemia Abnormal ECG When compared with ECG of 23-APR-2020 03:30, QRS duration has decreased T wave inversion now evident in Inferior leads T wave inversion now evident in Anterolateral leads Confirmed by Boby Nevarez ([id number]) on 04/27/2020 3:40:11 PM Referred By: REFERRED SELF Confirmed By:Boby Nevarez
[2020-04-27] MEDS: cefTRIAXone SODIUM 2,000 MG in DEXTROSE 5% 50 ML IV SCH (23:37)
[2020-04-28] MEDS: HEPARIN SOD 5,000 UNIT/0.5 ML VIAL SQ SCH ×3 (04:48→21:00)
[2020-04-28 05:36] LABS: Basophils # (auto) 0.02 K/uL (0-0.2); Basophils % (auto) 0.2 %; Eosinophils # (auto) 0.05 K/uL (0-0.5); Eosinophils % (auto) 0.6 %; Hematocrit (blood only) 32.6 % (37-47); Hemoglobin 10.3 g/dL (12.0-16.0); Immature Granulocytes # (auto) 0.32 K/uL (0.00-0.02); Immature Granulocytes % (auto) 3.6 %; Mean Corpuscular Hemoglobin 24.6 pg (25-34); Mean Corpuscular Hgb Conc 31.6 g/dL (32-36); Mean Platelet Volume 9.8 fL (7.4-10.4); Monocytes # (auto) 0.53 K/uL (0.11-0.59); Neutrophils # (auto) 6.41 K/uL (1.4-6.5); Neutrophils % (auto) 72.6 %; Platelet Count 269 K/uL (130-400); RDW Coefficient of Variation 17.7 % (11.5-14.5); RDW Standard Deviation 49.7 fL (36.4-46.3); Red Blood Count 4.18 M/uL (4.2-5.4); White Blood Count 8.83 K/uL (4.8-10.8)
[2020-04-28 06:00] LABS: Albumin Globulin Ratio 0.5 (0.9-2); Albumin Level 1.9 gm/dl (3.4-5.0); BUN Creatinine Ratio 17.3 (10-20); Bilirubin,Total 0.3 mg/dl (0.2-1); Calcium 7.3 mg/dl (8.5-10.1); Creatinine Clr Calc Pharmacy 82.5 ml/min; Est GFR (African American) 106.5; Est GFR (Non-African American) 91.9; Globulin 3.5 gm/dl (2.5-4.0); Potassium 3.7 mmol/L (3.5-5.1); Total Protein 5.4 gm/dl (6.4-8.2)
--- NOTE | 2020-04-28 07:34 | Hospitalist Progress Note ---
Date of Service April 28, 2020 Assessment & Plan (1) Acute respiratory failure: Overall this is a patient who didn't need much in the way of fluid resuscitation with septic shock based on what was recorded, who appeared euvolemic when transferred out of the ICU (04/22), but developed pulmonary edema and respiratory distress that evening, received Lasix 20mg IV and diuresed 4.5L net in 6-8 hours;hypoxia responded well to BIPAP. On 04/23 in the morning (that next morning) she had difficulty coming off the BIPAP 2/2 persistent pulmonary edema and was given an additional dose of Lasix 20mg IV with another net couple Liters off. She was able to come off the BIPAP for a few hours but then went back on it in the evening (04/23). A repeat CXR at that time revealed improving pulmonary edema. Lasix 40mg IV was given at that time. She diuresed approx 3L overnight. Na (04/24) was 153. He was oxygenating better on nasal canula throughout the day (04/24). D5W was started for hypernatremia (NA 153) and confusion/lethargy 04/24 morning, however, fluid stopped after 1L (1700) for worsening hypoxia and increased pulmonary edema. Responded very well to the BIPAP and respiratory was on BIPAP overnight and not able to wean. Diuril given yesterday as Na jewels from 153 (0700) to 154 (1700), in an effort to continue the diuresis. Dosed with Diuril 500mg IV instead. Alkalosis is present. Nephrology on case. Repeated BMP at 11pm 04/24 revealed the Na decreasing to 152, K 2.9 with an additional 30 MEq of KCl yet to give. Stable respiratory status on the BIPAP. Tolerated NC during the day, feeling a lot better, Advanced diet, ambulate, OOB, CTC today (2) Abdominal pain: Nonspecific (3) Sepsis: Severe Sepsis with septic shock-resolved, not POA. Septic shock 2/2 obstructive uropathy with infection. She underwent ureteral stent placement with drainage of infectious source (04/20). She came off pressor support shortly after. She continues on ceftriaxone for E coli bacteremia, and stress dose steroids wean to PO. (4) Shock: 2/2 to sepsis, Resolved, she is now on floor. (5) Obstructive uropathy: s/p ureteral stent by Urology placed 04/21. Good drainage achieved during the procedure. Manage pain as above and definitive stone management planned for outpatient setting. DC alonzo today, replace if can't void (6) Gram-negative bacteremia: FQ-resistant E coli. Per ID specialist, will continue with ceftriaxone and transition to oral cefdinir when tolerant of PO for total 14 day course. +Staph await final ID (7) Acute pyelonephritis: plan as above. (8) Thrombocytopenia: Acute hypernatremia, likely related to consumption from sepsis. HIT AB was negative. PLT count improved to 135K, resumed heparin. (9) JAVI (acute kidney injury): worsened renal function in setting of sepsis syndrome. resolved. (10) Chronic venous insufficiency: S/P left greater saphenous vein ablation on 04/18/[address] Otoole (11) Occlusion of left saphenous vein: *L Saphenous vein thrombus due to saphenous vein ablation (12) Complex sleep apnea syndrome: Bipap HS (13) Depression: Continue escitalopram, risperidone (14) Acute pulmonary edema: plan as above, currently doing well on BIPAP (15) Hypernatremia: Hypertonic hypernatremia 2/2 loop diuretic administration with plan as above. Nephrology to reassess volume status today. (16) DVT prophylaxis: Heparin Conditional Code-Ok to intubate, no CPR Dispo-continue PCU monitoring until she is euvolemic again. Once we can get there successfully and electrolytes are corrected, she may be discharge with further stone management as outpatient. Cefdinir to complete 14 day course. Rehab with prolonged critical illness. labs checked ROS-No Headache, No Visual Changes, No Nausea, No Vomiting, No Fever, No Chills, No Neck Pain or Stiffness, No Chest Pain, No Palpitations, No SOB, No HULL, No Cough, No Sputum, No Wheezing, No Abdominal Pain, No Diarrhea, No Hematemesis, No Hemoptysis, No Unexpected Weight Loss, No Flank pain, No Melena, No Hematochezia, No Frequency, No Urgency, No Burning, No Hematuria, No Rashes, No Diaphoresis. Appetite is Normal Physical Exam Gen-AAO x 3, NAD, Afebrile, looks a little better each day Head-NCAT, EOMI, PERRLA, Anicteric Sclera, No Posterior Pharyngeal Erythema Neck-Supple, No JVD, No Thyromegaly, No Masses, No LAD, No Bruits Lungs-Clear to Auscultation Bilaterally, + Rales, No Rhonchi, No Wheezing, No Crepitus Chest-No S4, +S1, +S2, No S3, No Murmurs, No Rubs, No Gallops, No Ectopy Abdomen-Soft, Bowel Sounds Present, Non Tender, Non Distended, No Hepatomegaly, No Splenomegaly, No Palpable Masses, No Rebound, No Rigidity, No Guarding Musculoskeletal-Full Range of Motion Bilaterally, No CVAT Extremities-No Cyanosis, No Clubbing, No Edema, TEDS Nuero-Cranial Nerves II-XII grossly intact, Motor WNL, DTRs WNL, Strength WNL, Non Focal Psych-Normal Mood Admission and Anticipated Discharge Date Admission Date: April 19, 2020 Results & Data Results & Data ([facility]) Vital Signs (Past 12 Hours) Vital Signs Temp Pulse Pulse Resp BP Pulse Ox 04/28/20 07:01 36.8 C 84 19 129/76 97 04/28/20 03:29 36.7 C 88 20 110/70 99 04/28/20 00:05 93 H 25 H 95 04/28/20 00:00 94 H 04/27/20 23:42 37.2 C 100 H 20 122/71 95
[2020-04-28] MEDS: PANTOprazole 40 MG in SYRINGE 0 ML IV SCH ×2 (08:14→21:07)
[2020-04-28] MEDS: UMECLIDINIUM/VILANTEROL 62.5/25MCG 7 PUFFS/INHALER INH SCH (08:14)
[2020-04-28] MEDS: PREGABALIN 100 MG CAP PO SCH ×2 (08:14→20:59)
[2020-04-28] MEDS: FLUTICASONE FUROATE 100MCG 14 PUFFS/INHALER INH SCH (08:14)
--- NOTE | 2020-04-28 10:19 | CT Scan Report ---
CT chest wo con CT DOSE: 552.81 mGy.cm CLINICAL HISTORY: 69 years-old Female with Rales. Acutely abnormal lung sounds TECHNIQUE: Multiaxial CT images of the chest were performed without contrast. A dose lowering techni que was utilized adhering to the principles of ALARA. COMPARISON: CTA of the chest 04/23/2020, chest CT 08/24/2014 FINDINGS: Unremarkable thyroid. Mildly enlarged precarinal and subcarinal lymph nodes measure up to 11 mm, like ly reactive. Mild cardiomegaly. Trace pericardial effusion. Mild aortic annular calcifications. No th oracic aortic aneurysm. Dilation of the main pulmonary artery, 3.3 cm suspicious for pulmonary artery hypertension. Right IJ central venous catheter distal tip terminates within the superior cavoatrial junction. Resolution of the previously described trace pleural effusions. There is moderately improved aeration of the bilateral lungs with residual multifocal multisegmental groundglass opacities. There are nume devon scattered nodular opacities within multiple lobes bilaterally, largest which measure up to 7-8 m m. These findings were previously obscured from the consolidation. The central airways appear patent. Postoperative changes of the stomach. Retained enteric contrast in the colon. Diastases of the upper anterior abdominal wall. Degenerative changes of the shoulders and spine. No acute fracture identifie d. IMPRESSION: 1. Moderately improved aeration of the lungs with persistent multifocal multilobar patchy groundglass opacities suggestive of resolving pneumonia and/or pulmonary edema. 2. Resolution of the trace pleural effusions. 3. Cardiomegaly with pulmonary artery dilation suggestive of pulmonary artery hypertension. 4. Mildly enlarged mediastinal lymph nodes, likely reactive. 5. Numerous irregular pulmonary nodules of the bilateral lungs measure up to approximately 8 mm. Foll ow-up guidelines provided below. Please refer to below summary of Fleischner criteria recommendations for follow-up of incidental CT n odules (Jacey Lee, Guidelines for management of small pulmonary nodules detected on CT scans: A sta tement from the Fleischner Society, Radiology 237: [phone].) SOLID NODULES Multiple nodules size: >8 mm * Low risk patients: follow-up at 3-6 months, then consider further follow-up at 18-24 months * high risk patients: follow-up at 3-6 months, then at 18-24 months if no change Note: newly detected indeterminate nodule in persons 35 years of age or older. * Low risk patients: minimal or absent history of smoking and/or other known risk factors * high risk patients: history of smoking or of other known risk factors (e.g. first degree relative with lung cancer, or exposure to asbestos, radon, uranium) * if a nodule up to 8 mm is partly solid or is ground glass further follow-up is required after 24 m onths to exclude possible slow growing adenocarcinoma (CARLO) The above report was generated using voice recognition software. It may contain grammatical, syntax o r spelling errors. ACT 112: Negative or not required by law. Electronically signed by: Ernesto Kirby M.D. 04/28/2020 10:18 AM
--- NOTE | 2020-04-28 10:45 | Nephrology Progress Note ---
Date of Service April 28, 2020 Assessment & Plan (1) Hypernatremia: Patient with hypernatremia due to inadequate free water intake. Free water deficit of 5.5 L. Sodium peaked at 158 but but was 153 the day before and down to 142 yesterday. Sodium is now up to 146 this morning. Patient can now drink and eat on her own. -Advised patient to drink at least 2 L of water daily. (2) Acute respiratory failure: Likely multifactorial including atelectasis, LARRY, asthma. Does not appear to be pulmonary edema. CXR yesterday showed improving aeration. Continue BiPAP as needed and encourage mobilization and incentive spirometry. No need for IV diuretics (3) Obstructive uropathy: Due to obstructive kidney stones. Patient status post a right ureteral stent. She will need additional work-up per outpatient and stone prevention therapies. She can follow-up with nephrology on discharge (4) Hypokalemia: K3.7 this morning. We will follow-up K AM Admission and Anticipated Discharge Date Admission Date: April 19, 2020 Subjective She feels better today. She is not a water drinker and drinks about 500 mm of water daily. She went for CAT scan of the chest this morning. Review of Systems Review of Systems: All systems reviewed & are unremarkable except as noted in HPI & below Physical Exam Physical Exam: General exam: Appears comfortable on oxygen by nasal cannula, no acute distress HEENT: Pupils are equal and reactive to light Neck: No JVD, neck is supple trachea is midline Respiratory system: Crackles bilaterally. Gastrointestinal: Abdomen is soft, non distended, non tender, bowel sounds are present CVS: Regular rate and rhythm. No murmurs, rubs or gallops Musculoskeletal: No joint or muscle tenderness Extremities: Non tender, no edema, peripheral pulses are present Neuro: Oriented, no tremors, no focal neurological deficits Skin: No rashes Results & Data ([facility]) Vital Signs (Past 12 Hours) Vital Signs Temp Pulse Pulse Resp BP Pulse Ox 04/28/20 08:00 85 04/28/20 07:01 36.8 C 84 19 129/76 97 04/28/20 03:29 36.7 C 88 20 110/70 99 04/28/20 00:05 93 H 25 H 95 04/28/20 00:00 94 H 04/27/20 23:42 37.2 C 100 H 20 122/71 95 Laboratory Results 07/25/20 05:23 04/28/20 04/28/20 05:23 05:23 WBC 8.83 RBC 4.18 L MCV 78.0 L MCH 24.6 L MCHC 31.6 L RDW Std Deviation 49.7 H RDW Coeff of David 17.7 H Plt Count 269 MPV 9.8 Albumin 1.9 L
[2020-04-28] MEDS: HYDROCORTISONE SOD 50 MG in SYRINGE 0 ML IV SCH (11:27)
[2020-04-28] MEDS ORDERED: ACETAMINOPHEN 325 MG TAB PO PRN (18:17)
[2020-04-28] MEDS: LORATADINE 10 MG TAB PO SCH (20:59)
[2020-04-28] MEDS: cefTRIAXone SODIUM 2,000 MG in DEXTROSE 5% 50 ML IV SCH (23:29)
[2020-04-29] MEDS: ALUMINUM/MAGNESIUM/SIMETH (MAALOX MAX) 30 ML UDC PO PRN ×2 (02:51→19:11)
[2020-04-29] MEDS: HEPARIN SOD 5,000 UNIT/0.5 ML VIAL SQ SCH (06:05)
[2020-04-29] MEDS: ONDANSETRON INJ 2 MG/ML 2 ML VIAL IV PRN ×2 (08:01→14:25)
[2020-04-29] MEDS: LORATADINE 10 MG TAB PO SCH (08:04)
[2020-04-29] MEDS: UMECLIDINIUM/VILANTEROL 62.5/25MCG 7 PUFFS/INHALER INH SCH (08:04)
[2020-04-29] MEDS: PANTOprazole 40 MG in SYRINGE 0 ML IV SCH (08:04)
[2020-04-29] MEDS: PREGABALIN 100 MG CAP PO SCH ×2 (08:04→20:04)
[2020-04-29] MEDS: HYDROCORTISONE SOD 50 MG in SYRINGE 0 ML IV SCH (08:04)
[2020-04-29] MEDS: FLUTICASONE FUROATE 100MCG 14 PUFFS/INHALER INH SCH (08:05)
--- NOTE | 2020-04-29 09:38 | Nephrology Progress Note ---
Date of Service April 29, 2020 Assessment & Plan (1) Hypernatremia: Patient with hypernatremia due to inadequate free water intake. Free water deficit of 5.5 L. Sodium peaked at 158 but but was 153 the day before and down to 142 yesterday. Sodium is now up to 146 this morning. Patient can now drink and eat on her own. -Advised patient to drink at least 2 L of water daily. (2) Obstructive uropathy: Due to obstructive kidney stones. Patient status post a right ureteral stent. She will need additional work-up per outpatient and stone prevention therapies. She can follow-up with nephrology on discharge (3) Hypokalemia: Potassium is improved with improved diet. No need for supplements. Admission and Anticipated Discharge Date Admission Date: April 19, 2020 Subjective She feels better today. She drank about 1.5 L of fluids yesterday. Sodium was 146 yesterday. Today's labs are pending Review of Systems Review of Systems: All systems reviewed & are unremarkable except as noted in HPI & below Physical Exam Physical Exam: General exam: Appears comfortable, no acute distress HEENT: Pupils are equal and reactive to light Neck: No JVD, neck is supple trachea is midline Respiratory system: Clear breath sounds bilaterally. Gastrointestinal: Abdomen is soft, non distended, non tender, bowel sounds are present CVS: Regular rate and rhythm. No murmurs, rubs or gallops Musculoskeletal: No joint or muscle tenderness Extremities: Non tender, no edema, peripheral pulses are present Neuro: Oriented, no tremors, no focal neurological deficits Skin: No rashes Results & Data ([facility]) Vital Signs (Past 12 Hours) Vital Signs Temp Pulse Pulse Resp BP Pulse Ox 04/29/20 08:00 83 04/29/20 07:05 36.5 C 83 19 104/68 97 04/29/20 02:51 36.6 C 86 20 129/79 91 04/29/20 00:00 81 04/28/20 23:51 36.8 C 89 22 112/71 98 04/28/20 22:15 79 22 100 Laboratory Results 04/28/20 05:23
[2020-04-29 10:58] LABS: Hematocrit (blood only) 34.2 % (37-47); Hemoglobin 10.8 g/dL (12.0-16.0); Mean Corpuscular Hemoglobin 25.1 pg (25-34); Mean Corpuscular Hgb Conc 31.6 g/dL (32-36); Mean Corpuscular Volume 79.5 fL (80-100); Mean Platelet Volume 9.6 fL (7.4-10.4); Platelet Count 284 K/uL (130-400); RDW Standard Deviation 50.3 fL (36.4-46.3); White Blood Count 9.23 K/uL (4.8-10.8)
[2020-04-29 11:16] LABS: BUN Creatinine Ratio 21.8 (10-20); Calcium 7.8 mg/dl (8.5-10.1); Creatinine Clr Calc Pharmacy 94.6 ml/min; Est GFR (African American) 111.8; Est GFR (Non-African American) 96.5; Potassium 3.9 mmol/L (3.5-5.1)
[2020-04-29] MEDS: CEFDINIR 300 MG CAP PO SCH ×2 (14:00→20:06)
[2020-04-29] MEDS: ENOXAPARIN INJ 40 MG/0.4 ML SYR SQ SCH (14:01)
[2020-04-29] MEDS: FUROSEMIDE 40 MG TAB PO SCH (17:07)
--- NOTE | 2020-04-29 19:47 | Hospitalist Progress Note ---
Date of Service April 29, 2020 Assessment & Plan (1) Hypernatremia: Hypertonic hypernatremia 2/2 loop diuretic administration. Nephrology following. Na is 141 today and she is tolerating free water and food. (2) Acute respiratory failure: Improving pulmonary edema on CT chest yesterday. Cont to wean oxygen as tolerated. Cont to ambulate as tolerated. Crackles on lung exam. Laix was restarted with the permission of Nephro at 50% (40mg PO BID). Cont to monitor this effect on sodium closely. (3) Sepsis: Severe Sepsis with septic shock-resolved, not POA. Septic shock 2/2 obstructive uropathy with infection. She underwent ureteral stent placement with drainage of infectious source (04/20). She came off pressor support shortly after. She continues on ceftriaxone for E coli bacteremia, and is being weaned from stress dosed steroids. Change to cefdinir for remainder of the 14 day course. (4) Shock: 2/2 to sepsis, Resolved, she is now on floor. (5) Obstructive uropathy: s/p ureteral stent by Urology placed 04/21. Good drainage achieved during the procedure. Manage pain as above and definitive stone management planned for outpatient setting. Still reporting some flank pain. Flomax and pyridium started today. (6) Gram-negative bacteremia: FQ-resistant E coli. Per ID specialist, will continue with ceftriaxone and transition to oral cefdinir when tolerant of PO for total 14 day course. (7) Acute pyelonephritis: plan as above. (8) Thrombocytopenia: Acute thrombocytopenia, likely related to consumption from sepsis. HIT AB was negative. PLT count improved. Changed Heparin to Lovenox to decrease shot burden. (9) Chronic venous insufficiency: S/P left greater saphenous vein ablation on 04/18/[address] Otoole (10) Occlusion of left saphenous vein: *L Saphenous vein thrombus due to saphenous vein ablation (11) Complex sleep apnea syndrome: Bipap HS-settings 12/5, 30% FiO2 (12) Depression: Continue escitalopram, risperidone (13) DVT prophylaxis: Lovenox OK to intubate, no CPR Dispo-to rehab at discharge. Awaiting resolution of hypoxia and symptom improvement. Discharge in the next 1-2 days. Dee Mccullough DO [facility] Hospitalist Admission and Anticipated Discharge Date Admission Date: April 19, 2020 Subjective nausea overnight that was severe, lasted until this morning but now has almost resolved. crackles at right base but reports no SOB she reports drinking free water, but not sure she can keep up with the recommendations Na is improved to 141 this morning. Review of Systems Review of Systems: All systems reviewed & are unremarkable except as noted in Subjective Physical Exam Physical Exam: CONSTITUTIONAL: WNWD, vitals as above, generally well- appearing EYES: normal conjunctivae, no scleral icterus ENT: external ear and nose normal, oropharynx clear, MMM RESPIRATORY: Coarse crackles at the right base, clear to auscultation on the left, no rales or wheezes, normal respiratory effort CARDIOVASCULAR: regular rate and rhythm, S1 and 2 heard without murmurs, gallops or rubs, no JVD, no peripheral edema GASTROINTESTINAL: normal bowel sounds, soft, nontender, nondistended MUSCULOSKELETAL: strength 5/5 throughout, head is normocephalic and atraumatic SKIN: warm and dry NEUROLOGIC: CN 2-12 grossly intact, normal cognition, normal speech, no gross focal deficits. PSYCHIATRIC: alert cooperative and oriented to person, place and time. Results & Data Results & Data ([facility]) Vital Signs (Past 12 Hours) Vital Signs Temp Pulse Pulse Resp BP BP Pulse Ox 04/29/20 19:06 36.8 C 87 18 99/66 L 99 04/29/20 16:44 36.8 C 85 20 111/72 99 04/29/20 16:00 86 04/29/20 11:28 36.8 C 84 19 95/63 L 97 04/29/20 08:00 83 Laboratory Results Short CBC 04/29/20 Range/Units 10:46 WBC 9.23 (4.8-10.8) K/uL Hgb 10.8 L (12.0-16.0) g/dL Hct 34.2 L (37-47) % Plt Count 284 (130-400) K/uL BMP 04/29/20 10:46 Sodium 141 Potassium 3.9 Chloride 109 H Carbon Dioxide 28 BUN 12 Creatinine 0.56 L Glucose 131 H Calcium 7.8 L Medications Administered Current Inpatient Medications Acetaminophen (Tylenol) 650 mg PO Q4H PRN PRN Reason: Pain or Fever Stop: 05/28/20 18:16 Al Hydrox/Mg Hydrox/Simethicone (Maalox Max) 30 ml PO Q6H PRN PRN Reason: Heartburn Stop: 05/29/20 02:34 Last Admin: 04/29/20 19:11 Dose: 30 ml Documented by: Lipase/Protease/Amylase (Pancreaze [id number] Unit) 5 cap PO TIDM [facility] Stop: 05/20/20 07:59 Last Admin: 04/23/20 08:12 Dose: Not Given Documented by: Cefdinir (Omnicef Cap) 300 mg PO BID [facility]; Protocol Stop: 05/04/20 12:44 Last Admin: 04/29/20 14:00 Dose: 300 mg Documented by: Desipramine HCl (Norpramin) 50 mg PO TIDM [facility] Stop: 05/20/20 07:59 Last Admin: 04/23/20 08:12 Dose: Not Given Documented by: Desipramine HCl (Norpramin) 100 mg PO HS [facility] Stop: 05/19/20 20:59 Last Admin: 04/22/20 20:50 Dose: 100 mg Documented by: Enoxaparin Sodium (Lovenox) 40 mg SQ QAM [facility] Stop: 05/29/20 13:59 Last Admin: 04/29/20 14:01 Dose: 40 mg Documented by: Fluticasone Furoate (Arnuity Ellipta 100mcg) 1 puffs INH QAM [facility] Stop: 05/20/20 08:59 Last Admin: 04/29/20 08:05 Dose: 1 puffs Documented by: Furosemide (Lasix) 40 mg PO BID17 [facility] Stop: 05/23/20 08:59 Last Admin: 04/29/20 17:07 Dose: 40 mg Documented by: Heparin Sodium (Porcine) (Heparin Sod 100 Unit/Ml Flush) 5 ml FLUSH PRN PRN PRN Reason: Flush Stop: 05/23/20 06:14 Hydrocortisone Sodium (Succinate 50 mg/ Syringe) 1 mls @ 4 mls/min IV Q24H [facility] Stop: 05/01/20 08:59 Last Admin: 04/29/20 08:04 Dose: 4 mls/min Documented by: Ipratropium [place] (Atrovent 0.02% 0.5mg/2.5ml) 0.5 mg INH Q6R PRN PRN Reason: SOB/wheezing Stop: 05/23/20 06:59 Last Admin: 04/25/20 20:13 Dose: 0.5 mg Documented by: Levalbuterol HCl (Xopenex 1.25mg/0.5ml Neb) 1.25 mg INH Q6R PRN PRN Reason: SOB/wheezing Stop: 05/23/20 06:59 Last Admin: 04/25/20 20:12 Dose: 1.25 mg Documented by: Loratadine (Claritin) 10 mg PO QAM [facility] Stop: 05/28/20 18:29 Last Admin: 04/29/20 08:04 Dose: 10 mg Documented by: Metoprolol Tartrate (Lopressor) 12.5 mg PO BID [facility] Stop: 05/23/20 08:59 Last Admin: 04/23/20 08:13 Dose: Not Given Documented by: Montelukast Sodium (Singulair) 10 mg PO [facility] Stop: 05/19/20 20:59 Last Admin: 04/22/20 20:49 Dose: 10 mg Documented by: Ondansetron HCl (Zofran) 4 mg IV Q6H PRN PRN Reason: Nausea Stop: 05/28/20 22:34 Last Admin: 04/29/20 14:25 Dose: 4 mg Documented by: Pantoprazole Sodium (Protonix) 40 mg PO BID [facility] Stop: 05/29/20 20:59 Pregabalin (Lyrica) 100 mg PO BID [facility] Stop: 05/24/20 11:29 Last Admin: 04/29/20 08:04 Dose: 100 mg Documented by: Pyridoxine HCl (Vitamin B-6) 100 mg PO BID [facility] Stop: 05/19/20 20:59 Last Admin: 04/23/20 08:13 Dose: Not Given Documented by: Risperidone (Risperdal) 3 mg PO [facility] Stop: 05/21/20 20:59 Last Admin: 04/22/20 20:50 Dose: 3 mg Documented by: Risperidone (Risperdal) 1 mg PO [facility] Stop: 05/29/20 20:59 Ropinirole HCl (Requip) 0.25 mg PO [facility] Stop: 05/19/20 20:59 Last Admin: 04/22/20 20:50 Dose: 0.25 mg Documented by: Tamsulosin HCl (Flomax) 0.4 mg PO [facility] Stop: 05/22/20 20:59 Last Admin: 04/22/20 20:50 Dose: 0.4 mg Documented by: Umeclidinium/Vilanterol (Anoro Ellipta 62.5/25 Mcg Inh) 1 puffs INH DAILY [facility] Stop: 05/20/20 08:59 Last Admin: 04/29/20 08:04 Dose: 1 puffs Documented by:
[2020-04-29] MEDS: PANTOprazole 40 MG TAB PO SCH (20:05)
[2020-04-29] MEDS: risperiDONE 1 MG TABLET PO SCH (20:05)
[2020-04-29] MEDS: PYRIDOXINE HCL 50 MG TAB PO SCH (20:06)
[2020-04-29] MEDS: METOPROLOL TARTRATE 25 MG TAB PO SCH (20:06)
[2020-04-29] MEDS: MONTELUKAST SODIUM 10 MG TABLET PO SCH (20:06)
[2020-04-29] MEDS: TAMSULOSIN HCL 0.4 MG CAP PO SCH (20:06)
[2020-04-29] MEDS: PHENAZOPYRIDINE HCL 100 MG TAB PO SCH (20:21)
[2020-04-30] MEDS: risperiDONE 1 MG TABLET PO SCH ×3 (00:45→20:07)
[2020-04-30] MEDS: HEPARIN 100 UNIT/ML 5ML FLUSH FLUSH PRN ×2 (05:57→09:59)
[2020-04-30 07:33] LABS: BUN Creatinine Ratio 20.6 (10-20); Calcium 8.1 mg/dl (8.5-10.1); Creatinine Clr Calc Pharmacy 86.9 ml/min; Est GFR (African American) 108.7; Est GFR (Non-African American) 93.8; Potassium 3.5 mmol/L (3.5-5.1)
[2020-04-30] MEDS: CEFDINIR 300 MG CAP PO SCH ×2 (09:59→20:05)
[2020-04-30] MEDS: HYDROCORTISONE SOD 50 MG in SYRINGE 0 ML IV SCH (09:59)
[2020-04-30] MEDS: PREGABALIN 100 MG CAP PO SCH ×2 (09:59→20:05)
[2020-04-30] MEDS: LORATADINE 10 MG TAB PO SCH (10:00)
[2020-04-30] MEDS: PANTOprazole 40 MG TAB PO SCH ×2 (10:00→20:06)
[2020-04-30] MEDS: METOPROLOL TARTRATE 25 MG TAB PO SCH ×2 (10:00→20:06)
[2020-04-30] MEDS: PYRIDOXINE HCL 50 MG TAB PO SCH ×2 (10:01→20:07)
[2020-04-30] MEDS: ENOXAPARIN INJ 40 MG/0.4 ML SYR SQ SCH (10:02)
[2020-04-30] MEDS: PHENAZOPYRIDINE HCL 100 MG TAB PO SCH ×3 (10:03→20:06)
[2020-04-30] MEDS: FLUTICASONE FUROATE 100MCG 14 PUFFS/INHALER INH SCH (10:03)
[2020-04-30] MEDS: UMECLIDINIUM/VILANTEROL 62.5/25MCG 7 PUFFS/INHALER INH SCH (10:03)
[2020-04-30] MEDS: FUROSEMIDE 40 MG TAB PO SCH ×2 (10:04→17:50)
--- NOTE | 2020-04-30 14:24 | Hospitalist Progress Note ---
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 She was on tube feeds for 20 years through a feeding tube and just started eating real food again in 2012. She has not had her pancrease enzymes started back again. Will start those in am with meals. Also will check H pylori, GI coctail or TUMS PRN for comfort ordered. (2) Gram-negative bacteremia: FQ-resistant E coli. Per ID specialist, will continue with ceftriaxone and transition to oral cefdinir when tolerant of PO for total 14 day course. (3) Obstructive uropathy: s/p ureteral stent by Urology placed 04/21. Good drainage achieved during the procedure. Manage pain as above and definitive stone management planned for outpatient setting. Still reporting some flank pain. Flomax and pyridium started on 04/29 with some imprvement in bladder discomfort, however still has ureteral stent pain. Starting trial of detrol. (4) Hypernatremia: Hypertonic hypernatremia 2/2 loop diuretic administration. Resolved and she is eating and drinking well. Lasix was restarted on 04/29. Trend BMP. (5) Acute respiratory failure: Cont to wean oxygen as tolerated. Cont to ambulate as tolerated. Crackles on lung exam are improving. She is on room air. Cont LAsix at 40mg BID. Trend BMP. (6) Sepsis: Severe Sepsis with septic shock-resolved, not POA. Septic shock 2/2 obstructive uropathy with infection. She underwent ureteral stent placement with drainage of infectious source (04/20). She came off pressor support shortly after. She continues on cefdinir for E coli bacteremia, and is being weaned from stress dosed steroids. (7) Shock: 2/2 to sepsis, Resolved, she is now on floor. (8) Acute pyelonephritis: plan as above. (9) Thrombocytopenia: Acute thrombocytopenia, likely related to consumption from sepsis. HIT AB was negative. PLT count improved. Changed Heparin to Lovenox to decrease shot burden. (10) Chronic venous insufficiency: S/P left greater saphenous vein ablation on 04/18/[address] Otoole (11) Occlusion of left saphenous vein: *L Saphenous vein thrombus due to saphenous vein ablation (12) Complex sleep apnea syndrome: Bipap HS-settings 12/5, 30% FiO2 (13) Depression: Continue escitalopram, risperidone (14) DVT prophylaxis: Lovenox OK to intubate, no CPR Dispo-to rehab at discharge. Awaiting resolution of hypoxia and symptom improvement. Discharge in the next 1-2 days. [facility]tic[facility]ated Discharge Date Admission Date: April 19, 2020 Subjective Bladder discomfort is improved on the pyridium and flomax started yesterday However, she still feels pain in the location of her ureteral stent. She is tolerating PO but reports severe esophageal burning that is not better with PPI Breathing is improved. Review of Systems Review of Systems: All systems reviewed & are unremarkable except as noted in Subjective Physical Exam Physical Exam: CONSTITUTIONAL: WNWD, vitals as above, generally well- appearing EYES: normal conjunctivae, no scleral icterus ENT: external ear and nose normal, oropharynx clear, MMM RESPIRATORY: Coarse crackles at the right base that are reduced from yesterday, clear to auscultation on the left, no rales or wheezes, normal respiratory effort CARDIOVASCULAR: regular rate and rhythm, S1 and 2 heard without murmurs, gallops or rubs, no JVD, no peripheral edema GASTROINTESTINAL: normal bowel sounds, soft, nontender, nondistended MUSCULOSKELETAL: strength 5/5 throughout, head is normocephalic and atraumatic SKIN: warm and dry NEUROLOGIC: CN 2-12 grossly intact, normal cognition, normal speech, no gross focal deficits. PSYCHIATRIC: alert cooperative and oriented to person, place and time. Results & Data Results & Data ([facility]) Vital Signs (Past 12 Hours) Vital Signs Temp Pulse Pulse Resp BP Pulse Ox 04/30/20 11:15 97 04/30/20 07:10 36.8 C 85 16 111/67 100 04/30/20 03:51 54 L 18 96 Laboratory Results BMP 04/30/20 06:29 Sodium 144 Potassium 3.5 Chloride 108 H Carbon Dioxide 31 BUN 13 Creatinine 0.61 Glucose 113 H Calcium 8.1 L Medications Administered Current Inpatient Medications Acetaminophen (Tylenol) 650 mg PO Q4H PRN PRN Reason: Pain or Fever Stop: 05/28/20 18:16 Al Hydrox/Mg Hydrox/Simethicone (Maalox Max) 30 ml PO Q6H PRN PRN Reason: Heartburn Stop: 05/29/20 02:34 Last Admin: 04/29/20 19:11 Dose: 30 ml Documented by: Lipase/Protease/Amylase (Pancreaze [id number] Unit) 5 cap PO TIDM [facility] Stop: 05/20/20 07:59 Last Admin: 04/23/20 08:12 Dose: Not Given Documented by: Cefdinir (Omnicef Cap) 300 mg PO BID [facility]; Protocol Stop: 05/04/20 12:44 Last Admin: 04/30/20 09:59 Dose: 300 mg Documented by: Desipramine HCl (Norpramin) 50 mg PO TIDM [facility] Stop: 05/20/20 07:59 Last Admin: 04/23/20 08:12 Dose: Not Given Documented by: Desipramine HCl (Norpramin) 100 mg PO HS [facility] Stop: 05/19/20 20:59 Last Admin: 04/22/20 20:50 Dose: 100 mg Documented by: Enoxaparin Sodium (Lovenox) 40 mg SQ QAM [facility] Stop: 05/29/20 13:59 Last Admin: 04/30/20 10:02 Dose: 40 mg Documented by: Fluticasone Furoate (Arnuity Ellipta 100mcg) 1 puffs INH QAM [facility] Stop: 05/20/20 08:59 Last Admin: 04/30/20 10:03 Dose: 1 puffs Documented by: Furosemide (Lasix) 40 mg PO BID17 [facility] Stop: 05/23/20 08:59 Last Admin: 04/30/20 10:04 Dose: 40 mg Documented by: Heparin Sodium (Porcine) (Heparin Sod 100 Unit/Ml Flush) 5 ml FLUSH PRN PRN PRN Reason: Flush Stop: 05/23/20 06:14 Last Admin: 04/30/20 09:59 Dose: 5 ml Documented by: Hydrocortisone Sodium (Succinate 50 mg/ Syringe) 1 mls @ 4 mls/min IV Q24H [facility] Stop: 05/01/20 08:59 Last Admin: 04/30/20 09:59 Dose: 4 mls/min Documented by: Ipratropium [place] (Atrovent 0.02% 0.5mg/2.5ml) 0.5 mg INH Q6R PRN PRN Reason: SOB/wheezing Stop: 05/23/20 06:59 Last Admin: 04/25/20 20:13 Dose: 0.5 mg Documented by: Levalbuterol HCl (Xopenex 1.25mg/0.5ml Neb) 1.25 mg INH Q6R PRN PRN Reason: SOB/wheezing Stop: 05/23/20 06:59 Last Admin: 04/25/20 20:12 Dose: 1.25 mg Documented by: Loratadine (Claritin) 10 mg PO QAM [facility] Stop: 05/28/20 18:29 Last Admin: 04/30/20 10:00 Dose: 10 mg Documented by: Metoprolol Tartrate (Lopressor) 12.5 mg PO BID [facility] Stop: 05/23/20 08:59 Last Admin: 04/30/20 10:00 Dose: 12.5 mg Documented by: Montelukast Sodium (Singulair) [address] [facility] Stop: 05/19/20 20:59 Last Admin: 04/29/20 20:06 Dose: 10 mg Documented by: Ondansetron HCl (Zofran) 4 mg IV Q6H PRN PRN Reason: Nausea Stop: 05/28/20 22:34 Last Admin: 04/29/20 14:25 Dose: 4 mg Documented by: Pantoprazole Sodium (Protonix) 40 mg PO BID [facility] Stop: 05/29/20 20:59 Last Admin: 04/30/20 10:00 Dose: 40 mg Documented by: Phenazopyridine HCl (Pyridium) 100 mg PO TID [facility] Stop: 05/02/20 20:59 Last Admin: 04/30/20 13:53 Dose: 100 mg Documented by: Pregabalin (Lyrica) 100 mg PO BID [facility] Stop: 05/24/20 11:29 Last Admin: 04/30/20 09:59 Dose: 100 mg Documented by: Pyridoxine HCl (Vitamin B-6) 100 mg PO BID [facility] Stop: 05/19/20 20:59 Last Admin: 04/30/20 10:01 Dose: 100 mg Documented by: Risperidone (Risperdal) 3 mg PO [facility] Stop: 05/21/20 20:59 Last Admin: 04/22/20 20:50 Dose: 3 mg Documented by: Risperidone (Risperdal) 1 mg PO [facility] Stop: 05/29/20 20:59 Last Admin: 04/30/20 01:24 Dose: 1 mg Documented by: Ropinirole HCl (Requip) 0.25 mg PO HS [facility] Stop: 05/19/20 20:59 Last Admin: 04/22/20 20:50 Dose: 0.25 mg Documented by: Tamsulosin HCl (Flomax) 0.4 mg PO HS [facility] Stop: 05/22/20 20:59 Last Admin: 04/29/20 20:06 Dose: 0.4 mg Documented by: Umeclidinium/Vilanterol (Anoro Ellipta 62.5/25 Mcg Inh) 1 puffs INH DAILY [facility] Stop: 05/20/20 08:59 Last Admin: 04/30/20 10:03 Dose: 1 puffs Documented by:
[2020-04-30] MEDS ORDERED: CALCIUM CARBONATE 500 MG CHEWABLE TAB PO PRN (18:11)
[2020-04-30] MEDS ORDERED: OXYBUTYNIN CHLORIDE 5 MG TAB PO STA (18:13)
[2020-04-30] MEDS ORDERED: ALUMINUM/MAGNESIUM SUSP 18 ML, LIDOCAINE HCL VISCOUS 2% 6 ML, BARCODE IDENTIFIER 1 EA PO ONE (18:45)
[2020-04-30] MEDS: TAMSULOSIN HCL 0.4 MG CAP PO SCH (20:06)
[2020-04-30] MEDS: MONTELUKAST SODIUM 10 MG TABLET PO SCH (20:07)
[2020-05-01] MEDS: METOPROLOL TARTRATE 25 MG TAB PO SCH ×2 (09:18→20:18)
[2020-05-01] MEDS: PANTOprazole 40 MG TAB PO SCH ×2 (09:19→20:20)
[2020-05-01] MEDS: CEFDINIR 300 MG CAP PO SCH ×2 (09:21→20:25)
[2020-05-01] MEDS: LORATADINE 10 MG TAB PO SCH (09:21)
[2020-05-01] MEDS: PYRIDOXINE HCL 50 MG TAB PO SCH ×2 (09:21→20:20)
[2020-05-01] MEDS: PHENAZOPYRIDINE HCL 100 MG TAB PO SCH ×3 (09:22→20:25)
[2020-05-01] MEDS: FUROSEMIDE 40 MG TAB PO SCH ×2 (09:23→18:38)
[2020-05-01] MEDS: PANCREAZE (LIPASE 16,800U) CAP PO SCH ×3 (09:24→16:22)
[2020-05-01] MEDS: ENOXAPARIN INJ 40 MG/0.4 ML SYR SQ SCH (09:25)
[2020-05-01] MEDS: UMECLIDINIUM/VILANTEROL 62.5/25MCG 7 PUFFS/INHALER INH SCH (09:27)
[2020-05-01] MEDS: FLUTICASONE FUROATE 100MCG 14 PUFFS/INHALER INH SCH (09:28)
[2020-05-01] MEDS: PREGABALIN 100 MG CAP PO SCH ×2 (09:54→20:25)
[2020-05-01] MEDS: TOLTERODINE TARTRATE LA 2 MG CAPCR PO SCH (10:48)
[2020-05-01] MEDS: DESIPRAMINE HCL 50 MG TAB PO SCH (16:21)
[2020-05-01] MEDS: ESCITALOPRAM OXALATE 10 MG TAB PO SCH (16:25)
--- NOTE | 2020-05-01 19:31 | Hospitalist Progress Note ---
Date of Service May 01, 2020 Assessment & Plan (1) Heartburn symptom: Improved with readdition of pancreas enzymes. 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 She was on tube feeds for 20 years through a feeding tube and just started eating real food again in 2012. Symptom control as needed. (2) Gram-negative bacteremia: FQ-resistant E coli. Per ID specialist, will continue with ceftriaxone an d transition to oral cefdinir when tolerant of PO for total 14 day course. (3) Obstructive uropathy: s/p ureteral stent by Urology placed 04/21. Good drainage achieved during the procedure. Manage pain as above and definitive stone management planned for outpatient setting. Still reporting some flank pain. Flomax and pyridium started on 04/29 with some imprvement in bladder discomfort, however still has ureteral stent pain. Starting trial of oxybutinin. (4) Hypernatremia: Hypertonic hypernatremia 2/2 loop diuretic administration. Resolved and she is eating and drinking well. Lasix was restarted on 04/29. Trend BMP. (5) Acute respiratory failure: Cont to wean oxygen as tolerated. Cont to ambulate as tolerated. Crackles on lung exam are improving. She is on room air. Cont LAsix at 40mg BID. Trend BMP. (6) Sepsis: Severe Sepsis with septic shock-resolved, not POA. Septic shock 2/2 obstructive uropathy with infection. She underwent ureteral stent placement with drainage of infectious source (04/20). She came off pressor support shortly after. She continues on cefdinir for E coli bacteremia. (7) Shock: 2/2 to sepsis, Resolved, she is now on floor. (8) Acute pyelonephritis: plan as above. (9) Thrombocytopenia: Acute thrombocytopenia, likely related to consumption from sepsis. HIT AB was negative. PLT count improved. Changed Heparin to Lovenox to decrease shot burden. (10) Chronic venous insufficiency: S/P left greater saphenous vein ablation on 04/18/[address] Otoole (11) Occlusion of left saphenous vein: *L Saphenous vein thrombus due to saphenous vein ablation (12) Complex sleep apnea syndrome: Bipap HS-settings 12/5, 30% FiO2 (13) Depression: Continue escitalopram, risperidone (14) DVT prophylaxis: Lovenox OK to intubate, no CPR Dispo-to rehab at discharge. Awaiting resolution of hypoxia and symptom improvement. Discharge in the next 1-2 days. Dee Mccullough DO [facility] Hospitalist Admission and Anticipated Discharge Date Admission Date: April 19, 2020 Subjective Doing well reports some improvement on the bladder pain but is having stent pain with dysuria afebrile tolerating PO Review of Systems Review of Systems: All systems reviewed & are unremarkable except as noted in Subjective Physical Exam Physical Exam: CONSTITUTIONAL: WNWD, vitals as above, generally well- appearing EYES: normal conjunctivae, no scleral icterus ENT: external ear and nose normal, oropharynx clear, MMM RESPIRATORY: clear to auscultation bilaterally, no rales or wheezes, normal respiratory effort CARDIOVASCULAR: regular rate and rhythm, S1 and 2 heard without murmurs, gallops or rubs, no JVD, no peripheral edema GASTROINTESTINAL: normal bowel sounds, soft, nontender, nondistended MUSCULOSKELETAL: strength 5/5 throughout, head is normocephalic and atraumatic SKIN: warm and dry NEUROLOGIC: CN 2-12 grossly intact, normal cognition, normal speech, no gross focal deficits. PSYCHIATRIC: alert cooperative and oriented to person, place and time. Results & Data Results & Data ([facility]) Vital Signs (Past 12 Hours) Vital Signs Temp Pulse Resp BP Pulse Ox 05/01/20 16:06 36.8 C 89 17 109/71 95 Medications Administered Current Inpatient Medications Acetaminophen (Tylenol) 650 mg PO Q4H PRN PRN Reason: Pain or Fever Stop: 05/28/20 18:16 Last Admin: 05/01/20 16:20 Dose: 650 mg Documented by: Al Hydrox/Mg Hydrox/Simethicone (Maalox Max) 30 ml PO Q6H PRN PRN Reason: Heartburn Stop: 05/29/20 02:34 Last Admin: 04/29/20 19:11 Dose: 30 ml Documented by: Lipase/Protease/Amylase (Pancreaze [id number] Unit) 5 cap PO TIDM [facility] Stop: 05/20/20 07:59 Last Admin: 04/23/20 08:12 Dose: Not Given Documented by: Lipase/Protease/Amylase (Pancreaze [id number] Unit) 5 cap PO TIDM [facility] Stop: 05/31/20 07:59 Last Admin: 05/01/20 16:22 Dose: 5 cap Documented by: Calcium Carbonate (Tums) 1,000 mg PO Q6H PRN PRN Reason: Indigestion Stop: 05/30/20 18:10 Last Admin: 05/01/20 09:54 Dose: 1,000 mg Documented by: Cefdinir (Omnicef Cap) 300 mg PO BID [facility]; Protocol Stop: 05/04/20 12:44 Last Admin: 05/01/20 09:21 Dose: 300 mg Documented by: Desipramine HCl (Norpramin) 100 mg PO HS [facility] Stop: 05/31/20 20:59 Desipramine HCl (Norpramin) 50 mg PO TIDM [facility] Stop: 05/31/20 16:59 Last Admin: 05/01/20 16:21 Dose: 50 mg Documented by: Enoxaparin Sodium (Lovenox) 40 mg SQ QAM [facility] Stop: 05/29/20 13:59 Last Admin: 05/01/20 09:25 Dose: 40 mg Documented by: Escitalopram Oxalate (Lexapro Tab) 10 mg PO QAM [facility] Stop: 05/31/20 15:29 Last Admin: 05/01/20 16:25 Dose: 10 mg Documented by: Fluticasone Furoate (Arnuity Ellipta 100mcg) 1 puffs INH QAM [facility] Stop: 05/20/20 08:59 Last Admin: 05/01/20 09:28 Dose: 1 puffs Documented by: Furosemide (Lasix) 40 mg PO BID17 [facility] Stop: 05/23/20 08:59 Last Admin: 05/01/20 18:38 Dose: 40 mg Documented by: Heparin Sodium (Porcine) (Heparin Sod 100 Unit/Ml Flush) 5 ml FLUSH PRN PRN PRN Reason: Flush Stop: 05/23/20 06:14 Last Admin: 04/30/20 09:59 Dose: 5 ml Documented by: Ipratropium [place] (Atrovent 0.02% 0.5mg/2.5ml) 0.5 mg INH Q6R PRN PRN Reason: SOB/wheezing Stop: 05/23/20 06:59 Last Admin: 04/25/20 20:13 Dose: 0.5 mg Documented by: Levalbuterol HCl (Xopenex 1.25mg/0.5ml Neb) 1.25 mg INH Q6R PRN PRN Reason: SOB/wheezing Stop: 05/23/20 06:59 Last Admin: 04/25/20 20:12 Dose: 1.25 mg Documented by: Loratadine (Claritin) 10 mg PO QAM [facility] Stop: 05/28/20 18:29 Last Admin: 05/01/20 09:21 Dose: 10 mg Documented by: Metoprolol Tartrate (Lopressor) 12.5 mg PO BID [facility] Stop: 05/23/20 08:59 Last Admin: 05/01/20 09:18 Dose: 12.5 mg Documented by: Montelukast Sodium (Singulair) 10 mg PO [facility] Stop: 05/19/20 20:59 Last Admin: 04/30/20 20:07 Dose: 10 mg Documented by: Ondansetron HCl (Zofran) 4 mg IV Q6H PRN PRN Reason: Nausea Stop: 05/28/20 22:34 Last Admin: 04/29/20 14:25 Dose: 4 mg Documented by: Pantoprazole Sodium (Protonix) 40 mg PO BID [facility] Stop: 05/29/20 20:59 Last Admin: 05/01/20 09:19 Dose: 40 mg Documented by: Phenazopyridine HCl (Pyridium) 100 mg PO TID [facility] Stop: 05/02/20 20:59 Last Admin: 05/01/20 13:14 Dose: 100 mg Documented by: Pregabalin (Lyrica) 200 mg PO TID [facility] Stop: 05/31/20 20:59 Pyridoxine HCl (Vitamin B-6) 100 mg PO BID [facility] Stop: 05/19/20 20:59 Last Admin: 05/01/20 09:21 Dose: 100 mg Documented by: Risperidone (Risperdal) 3 mg PO [facility] Stop: 05/31/20 20:59 Ropinirole HCl (Requip) 0.25 mg PO [facility] Stop: 05/19/20 20:59 Last Admin: 04/22/20 20:50 Dose: 0.25 mg Documented by: Tamsulosin HCl (Flomax) 0.4 mg PO [facility] Stop: 05/22/20 20:59 Last Admin: 04/30/20 20:06 Dose: 0.4 mg Documented by: Tolterodine Tartrate (Detrol La) 2 mg PO QAM [facility] Stop: 05/31/20 08:59 Last Admin: 05/01/20 10:48 Dose: 2 mg Documented by: Umeclidinium/Vilanterol (Anoro Ellipta 62.5/25 Mcg Inh) 1 puffs INH DAILY [facility] Stop: 05/20/20 08:59 Last Admin: 05/01/20 09:27 Dose: 1 puffs Documented by:
[2020-05-01] MEDS: MONTELUKAST SODIUM 10 MG TABLET PO SCH (20:19)
[2020-05-01] MEDS: TAMSULOSIN HCL 0.4 MG CAP PO SCH (20:20)
[2020-05-01] MEDS ORDERED: risperiDONE 3 MG TABLET PO SCH (21:00)
[2020-05-01] MEDS ORDERED: DESIPRAMINE HCL 50 MG TAB PO SCH (21:00)
[2020-05-02 06:49] LABS: Creatinine Clr Calc Pharmacy 55.4 ml/min; Est GFR (African American) 71.8
[2020-05-02] MEDS: PANCREAZE (LIPASE 16,800U) CAP PO SCH ×2 (08:07→12:12)
[2020-05-02] MEDS: FLUTICASONE FUROATE 100MCG 14 PUFFS/INHALER INH SCH (08:08)
[2020-05-02] MEDS: UMECLIDINIUM/VILANTEROL 62.5/25MCG 7 PUFFS/INHALER INH SCH (08:08)
[2020-05-02] MEDS: PYRIDOXINE HCL 50 MG TAB PO SCH (08:09)
[2020-05-02] MEDS: TOLTERODINE TARTRATE LA 2 MG CAPCR PO SCH (08:09)
[2020-05-02] MEDS: CEFDINIR 300 MG CAP PO SCH (08:09)
[2020-05-02] MEDS: ENOXAPARIN INJ 40 MG/0.4 ML SYR SQ SCH (08:09)
[2020-05-02] MEDS: LORATADINE 10 MG TAB PO SCH (08:10)
[2020-05-02] MEDS: PANTOprazole 40 MG TAB PO SCH (08:10)
[2020-05-02] MEDS: METOPROLOL TARTRATE 25 MG TAB PO SCH (08:10)
[2020-05-02] MEDS: FUROSEMIDE 40 MG TAB PO SCH (08:11)
[2020-05-02] MEDS: PHENAZOPYRIDINE HCL 100 MG TAB PO SCH (08:11)
[2020-05-02] MEDS: DESIPRAMINE HCL 50 MG TAB PO SCH ×2 (08:12→12:11)
[2020-05-02] MEDS: ESCITALOPRAM OXALATE 10 MG TAB PO SCH (08:12)
[2020-05-02] MEDS: PREGABALIN 100 MG CAP PO SCH (08:21)
--- NOTE | 2020-05-02 22:46 | Hospitalist Progress Note ---
Date of Service April 30, 2020 (documented retrospectively) Assessment & Plan (1) Gram-negative bacteremia: FQ-resistant E coli. Per ID specialist, will continue with ceftriaxone and transition to oral cefdinir when tolerant of PO for total 14 day course. (2) Obstructive uropathy: s/p ureteral stent by Urology placed 04/21. Good drainage achieved during the procedure. Manage pain as above and definitive stone management planned for outpatient setting. Still reporting some flank pain. Flomax and pyridium started on 04/29 with some imprvement in bladder discomfort, however still has ureteral stent pain. Starting trial of oxybutinin. (3) Hypernatremia: Hypertonic hypernatremia 2/2 loop diuretic administration. Resolved and she is eating and drinking well. Lasix was restarted on 04/29. Trend BMP. (4) Acute respiratory failure: Cont to wean oxygen as tolerated. Cont to ambulate as tolerated. Crackles on lung exam are improving. She is on room air. Cont LAsix at 40mg BID. Trend BMP. (5) Sepsis: Severe Sepsis with septic shock-resolved, not POA. Septic shock 2/2 obstructive uropathy with infection. She underwent ureteral stent placement with drainage of infectious source (04/20). She came off pressor support shortly after. She continues on cefdinir for E coli bacteremia. (6) Shock: 2/2 to sepsis, Resolved, she is now on floor. (7) Acute pyelonephritis: plan as above. (8) Thrombocytopenia: Acute thrombocytopenia, likely related to consumption from sepsis. HIT AB was negative. PLT count improved. Changed Heparin to Lovenox to decrease shot burden. (9) Chronic venous insufficiency: S/P left greater saphenous vein ablation on 04/18/[address] Otoole (10) Occlusion of left saphenous vein: *L Saphenous vein thrombus due to saphenous vein ablation (11) Complex sleep apnea syndrome: Bipap HS-settings 12/5, 30% FiO2 (12) Depression: Continue escitalopram, risperidone (13) DVT prophylaxis: Lovenox OK to intubate, no CPR Dispo-to rehab at discharge. Awaiting resolution of hypoxia and symptom improvement. Discharge in the next 1-2 days. Dee Mccullough DO [facility] Hospitalist Admission and Anticipated Discharge Date Admission Date: April 19, 2020 Subjective Doing well afebrile tolerating PO Review of Systems Review of Systems: All systems reviewed & are unremarkable except as noted in Subjective Physical Exam Physical Exam: CONSTITUTIONAL: WNWD, vitals as above, generally well- appearing EYES: normal conjunctivae, no scleral icterus ENT: external ear and nose normal, oropharynx clear, MMM RESPIRATORY: clear to auscultation bilaterally, no rales or wheezes, normal respiratory effort CARDIOVASCULAR: regular rate and rhythm, S1 and 2 heard without murmurs, gallops or rubs, no JVD, no peripheral edema GASTROINTESTINAL: normal bowel sounds, soft, nontender, nondistended MUSCULOSKELETAL: strength 5/5 throughout, head is normocephalic and atraumatic SKIN: warm and dry NEUROLOGIC: CN 2-12 grossly intact, normal cognition, normal speech, no gross focal deficits. PSYCHIATRIC: alert cooperative and oriented to person, place and time.
[2020-05-03] MEDS ORDERED: OXYBUTYNIN CHLORIDE XL 5 MG TABCR PO SCH (09:00)
--- NOTE | 2020-05-17 11:41 | Discharge Summary ---
Date of Service May 02, 2020 Admission HPI Per Admitting Provider Pt is 69 y/o F with PMH chronic diastolic CHF, dyslipidemia, short gut syndrome, COPD, sleep apnea, depression, venous stasis presented to ER with c/o fall. Pt states today was getting out of bed and she felt dizzy and her legs felt week and then she fell. She states friends called EMS to help get her up off floor. She doesn't think she had LOC and denies any neck pain, back pain or extremity pain or known injury from fall. Pt states has been SOB for past 1-2 days and had wheezing this morning. Denies orthopnea but reports waking up at night with SOB. Denies any cough or CP, fever/chills, hemoptysis. She took albuterol inhaler at home with a little relief of SOB. Denies any increased BLE edema past several days. Pt with recent h/o BLE edema and had Lasix adjustments in March and then had low potassium and low sodium and Lasix was decreased to 80mg BID. Pt had left greater saphenous vein ablation on 04/18/[address] Otoole. Denies any leg pain, erythema or discharge from surgery site. Pt did not eat or drink today. Reports some dysuria today. Denies fever/chills, diaphoresis, N/V/D/C, LESLIE, vision changes, palpitations, cough, sore throat, choking, otalgia, rhinorrhea, abdominal pain, paresthesias, rashes, hematuria, urinary frequency. Admission Exam Per Admitting Provider General: no distress, obese Head: normocephalic, atraumatic Eyes: PERRL, EOM's intact, conjunctiva non-injected, anicteric ENT: normal inspection external ears, nose, mucous membranes mildly dry Neck: supple, trachea midline Lungs: clear, R: 22, no wheezing/rhonchi/rales CV: RRR, + murmur, 1-2+ pretibial edema Abd: normal BS, multiple healed surgical scars, soft, non-tender Ext: no cyanosis, no erythema, no calf tenderness, left lower leg with puncture site with surrounding mild ecchymosis that is non-tender to palpation no discharge or surrounding erythema Neuro: A&O x 3, no focal deficits noted, normal affect Skin: warm, dry Principal Diagnosis Septic shock 2/2 gram negative bacteremia and obstructive uropathy-resolved s/p ureteral stnet placement Hypernatremia-resolved Acute respiratory failure Obstructive uropathy Discharge Exam CONSTITUTIONAL: WNWD, vitals as above, generally well-appearing EYES: normal conjunctivae, no scleral icterus ENT: external ear and nose normal, oropharynx clear, MMM RESPIRATORY: clear to auscultation bilaterally, no rales or wheezes, normal respiratory effort CARDIOVASCULAR: regular rate and rhythm, S1 and 2 heard without murmurs, gallops or rubs, no JVD, no peripheral edema GASTROINTESTINAL: normal bowel sounds, soft, nontender, nondistended MUSCULOSKELETAL: strength 5/5 throughout, head is normocephalic and atraumatic SKIN: warm and dry NEUROLOGIC: CN 2-12 grossly intact, normal cognition, normal speech, no gross focal deficits. PSYCHIATRIC: alert cooperative and oriented to person, place and time. Discharge Data Allergies Allergy/AdvReac Type Severity Reaction Status Date / Time Penicillins Allergy Intermediate RASH ALL Verified 05/17/20 09:48 OVER UPPER BODY NO RESP SYMPTOMS piperacillin Allergy Intermediate RASH Verified 05/17/20 09:48 Sulfa (Sulfonamide Allergy Intermediate Generalized Verified 05/17/20 09:48 Antibiotics) Rash tazobactam Allergy Intermediate RASH ALL Verified 05/17/20 09:48 OVER UPPER BODY NO RESP SYMPTOMS bupropion Allergy Mild NERVOUS Verified 05/17/20 09:48 REACTION Cephalosporins Allergy Mild RASH, Verified 05/17/20 09:48 DIARRHEA levofloxacin Allergy Mild RASH,TURNED Verified 05/17/20 09:48 RED prochlorperazine Allergy Mild NERVOUS Verified 05/17/20 09:48 REACTION promethazine Allergy Mild UNKNOWN Verified 05/17/20 09:48 tobramycin Allergy Mild UNKNOWN Verified 05/17/20 09:48 bethanechol Allergy Unknown RASH, Verified 05/17/20 09:48 "FEELS FUNNY" clindamycin Allergy Unknown Unknown Verified 05/17/20 09:48 dipyridamole Allergy Unknown UNKNOWN Verified 05/17/20 09:48 droperidol Allergy Unknown Unknown Verified 05/17/20 09:48 morphine Allergy Unknown NERVOUS Verified 05/17/20 09:48 REACTION TO IT aspirin AdvReac Severe BLEEDING Verified 05/17/20 09:48 tedizolid AdvReac Severe GI SYMPTOMS Verified 05/17/20 09:48 ertapenem AdvReac Intermediate RASH Verified 05/17/20 09:48 cephalexin AdvReac Mild GI SYMPTOMS Verified 05/17/20 09:48 Consultations 04/19/20 15:46 ED Decision to Admit Stat 04/19/20 19:19 Consult Case Management - Discharge Planning Routine 04/20/20 04:47 Consult Case Management - Discharge Planning Routine Consult General Accounting Clerk Routine 04/22/20 18:10 Consult Infectious Diseases Routine 04/24/20 22:49 Consult Nephrology Routine Procedures Performed Operation Date: 04/20/20 14:00 Actual Procedures p Cystoscopy, Right Stent Placement(Right) - Meng Resendiz MD Ordered Studies 04/19/20 13:03 CT head/brain wo con Stat 04/19/20 17:21 US venous doppler LE BI Stat 04/20/20 03:48 CT head/brain wo con Urgent 04/20/20 09:28 CT abd pelvis oral con only Urgent 04/20/20 15:00 FL KUB Routine FL fluoroscopy <1hr Routine 04/22/20 16:45 CT abd pelvis IV con only Stat 04/23/20 01:52 CT abd pelvis IV con only Urgent CT angio chest PE protocol Urgent 04/28/20 07:34 CT chest wo con Routine Hospital Course (1) Gram-negative bacteremia: FQ-resistant E coli. Per ID specialist, will continue with ceftriaxone and transition to oral cefdinir when tolerant of PO for total 14 day course. (2) Obstructive uropathy: s/p ureteral stent by Urology placed 04/21. Good drainage achieved during the procedure. Manage pain as above and definitive stone management planned for outpatient setting. Still reporting some flank pain. Flomax and pyridium started on 04/29 with some improvement in bladder discomfort. (3) Hypernatremia: Hypertonic hypernatremia 2/2 loop diuretic administration. Resolved and she is eating and drinking well. Lasix was restarted on 04/29. Remained in normal range at discharge. BMP as outpatient recommended in 1-2 weeks. (4) Acute respiratory failure: Cont to wean oxygen as tolerated--off oxygen breathing on room air by time of discharge. (5) Sepsis: Severe Sepsis with septic shock-resolved, not POA. Septic shock 2/2 obstructive uropathy with infection. She underwent ureteral stent placement with drainage of infectious source (04/20). She came off pressor support shortly after. She continues on cefdinir for E coli bacteremia. (6) Shock: 2/2 to sepsis, Resolved. (7) Acute pyelonephritis: plan as above. (8) Thrombocytopenia: Acute thrombocytopenia, likely related to consumption from sepsis. HIT AB was negative. PLT count improved. Changed Heparin to Lovenox to decrease shot burden. (9) Chronic venous insufficiency: S/P left greater saphenous vein ablation on 04/18/[address] Otoole (10) Occlusion of left saphenous vein: *L Saphenous vein thrombus due to saphenous vein ablation (11) Complex sleep apnea syndrome: Bipap HS-settings 12/5, 30% FiO2 (12) Depression: Continue escitalopram, risperidone DC exam as listed above. Discharged to [facility] in stable condition with close PCP followup recommended. Total Time Total Time Spent Total Time Spent (In Minutes): 60 Total Time Includes: Examination of the Patient, Discharge Planning, Medication Reconciliation and Communication With Other Providers Discharge Plan Discharge Items Patient Disposition: Transfer Residential Fac Reason For Visit: WEAKNESS,FALL,JAVI Discharge Diagnosis: Acute respiratory failure-resolved Severe sepsis with septic shock not present on arrival secondary to obstructive uropathy with infection present status post ureteral stent placement on the right with drainage of infectious source (04/20) E. coli bacteremia Acute pyelonephritis Thrombocytopenia resolved Acute kidney injury-resolved Chronic venous insufficiency status post left greater saphenous vein ablation on 04/18/2020 Complex sleep apnea syndrome Depression Hypernatremia-resolved Condition on Discharge: Good Activity: Resume your previous activity Non-emergency contact: Primary Care Provider Call non-emergency contact if: you have any medication questions, your symptoms worsen, your pain is not controlled, your pain is worsening, your pain is unusual for you and you have a fever Follow-up/Referrals: Frederick Reynaga DO [Primary Care Provider] - Diet: Heart Healthy Addtl Attending Provider Instructions: Please take all medications as instructed on discharge list below. Please note that your FUROSEMIDE and, therefore, your POTASSIUM, has been reduced by half. Additionally, please complete the entire course of antibiotics as prescribed for the bacterial blood infection that was found. No follow-up is necessary for this issue. Please follow-up with your primary care physician (PCP) within one to two weeks of discharge from the hospital to touch base and ensure you are still doing well after discharge. You were found to have numerous irregular pulmonary nodules in both lungs measuring up to approximately 8 mm in diameter. Please follow-up with PCP to discuss the need for repeat imaging as outpatient. Please follow-up with [facility] to establish a time/date for ureteral stent removal, or if you have any further issues with stent pain. Their number is . It was a pleasure taking care of you! Please call if you have any questions or problems. You can reach a [facility] hospitalist on duty at [facility] 24 hours a day by calling [phone]. Take care of yourself. Dee Mccullough, DO [facility] Hospitalist Pending Studies at Discharge: No Stand-Alone Forms: My [facility] Skilled Items Patient informed of condition?: Yes DNR: Yes (conditional code-no CPR, intubation ok) Discharge Level of Care: Acute rehab Communicable Disease: No Discharge Prognosis: Stable Lines: None Urinary Catheter: No Medications and DC Order Prescriptions: New cefdinir 300 mg Capsule 300 mg PO BID Qty: 4 RF: 0 tamsulosin 0.4 mg Capsule 0.4 mg PO HS Qty: 30 RF: 1 furosemide 40 mg Tablet 40 mg PO BID17 Qty: 60 RF: 1 potassium chloride 10 mEq tablet,ER particles/crystals 10 meq PO BID17 Qty: 60 RF: 1 phenazopyridine [Pyridium] 100 mg Tablet 100 mg PO TID PRN (Reason: pelvic/bladder pain) Qty: 20 RF: 0 oxybutynin chloride 5 mg Tablet Extended Release 24hr 5 mg PO QAM Qty: 30 RF: 0 Continued risperidone 3 mg tablet 3 mg PO HS RF: 0 lorazepam [Ativan] 0.5 mg tablet 0.5 mg PO TID PRN (Reason: Anxiety) RF: 0 desipramine 50 mg tablet 50 mg PO TIDM RF: 0 colesevelam 625 mg tablet 625 mg PO TID RF: 0 montelukast [Singulair] 10 mg tablet 10 mg PO HS RF: 0 escitalopram oxalate [Lexapro] 20 mg tablet 20 mg PO QAM RF: 0 Prilosec OTC 20 mg tablet,delayed release (DR/EC) 20 mg PO BID RF: 0 albuterol sulfate 90 mcg/actuation aerosol powdr breath activated 2 puffs INH Q4H PRN (Reason: Shortness Of Breath Or Wheezing) Qty: 1 RF: 5 Trelegy Ellipta 100-62.5-25 mcg blister with device 1 puffs INH QAM Qty: 60 RF: 5 ropinirole 0.25 mg tablet 0.25 mg PO HS 30 Days Qty: 30 RF: 3 metoprolol tartrate 25 mg tablet 12.5 mg PO BID RF: 0 oxycodone-acetaminophen 5-325 mg tablet 1 tab PO Q6H PRN (Reason: Pain) RF: 0 pregabalin 200 mg Capsule 200 mg PO TID RF: 0 ipratropium-albuterol 0.5 mg-3 mg(2.5 mg base)/3 mL Solution For Nebulization 3 ml INHALATION Q4H PRN (Reason: Shortness Of Breath Or Wheezing) RF: 0 desipramine 50 mg Tablet 100 mg PO HS RF: 0 mupirocin 2 % Ointment 1 applic TOPICAL BID PRN (Reason: BREAKOUTS\\) RF: 0 pyridoxine (vitamin B6) [Vitamin B-6] 100 mg Tablet 100 mg PO BID RF: 0 diclofenac sodium 1 % Gel 2 g TOPICAL DIRECTED RF: 0 cholecalciferol (vitamin D3) [Vitamin D3] 2,000 unit Capsule 2,000 unit PO QDD RF: 0 Creon 24,000-76,000 -120,000 unit Capsule,Delayed Release(Dr/Ec) 4 cap PO TID RF: 0 Centrum Silver Women 8 mg iron-400 mcg-300 mcg Tablet 1 tab PO DAILY RF: 0 ibuprofen [Advil] 200 mg Tablet 400 mg PO Q6H PRN (Reason: Pain) RF: 0 Discontinued potassium chloride [Klor-Con M20] 20 mEq tablet,ER particles/crystals 20 meq PO BID RF: 0 Myrbetriq 50 mg Tablet Extended Release 24 Hr 50 mg PO QAM RF: 0 furosemide [Lasix] 80 mg tablet 80 mg PO BID RF: 0 Discharge Orders: Discharge Order (Routine); Ordered 05/02/20 Ordered By: Dee Mccullough Admission Data Admit Date/Time: 04/19/20 16:07 Attending Provider: Dee Mccullough Admit Provider: Aubrey Chicas Primary Care Provider: Frederick Reynaga Other Providers: Gene Canales ; Meng Resendiz
== END 2020-05-02 13:15 | DRG 659 ==
LOC: ED 12:41 → SUATTDRO 16:07 → 2W 16:07 → 1E 04-20 04:35 → 2W 04-22 14:22 → 2S 04-23 09:31 → 3N 04-30 00:54

== ENCOUNTER 2021-09-24 12:21 | Inpatient (IN) ==
[~2021-09-24 12:21] MED LIST changes: -ALBU18002 INH; -AMPI500C9 PO; -CEFAZOLIN 3000MG IV PUSH 22.5 ML IV SCH; -CYCL5TAB PO; -ESCI1TAB10 PO; -FRS/40 PO; -LACTATED RINGER'S 1000ML 1,000 ML IV SCH; -LORA-741 PO; -MIRA1TAB3 PO; -MOME100A INH; -MONT1TAB3 PO; -NSS 1000ML IV SCH; -OMEP20CA9 PO; -PANC1200 PO; -POTA-639 PO; +POTASSIUM CHLORIDE CRTAB 20 MEQ TABCR PO ONE; -PREG1CAP70 PO; -RISP3TAB3 PO; -TRML160 TOP; -VTMD1000 PO; -WLC625 PO; -[UNRECOGNIZED DRUG - CODE] PO
[2021-09-24] MEDS ORDERED: ACETAMINOPHEN 1,000 MG/100 ML VIAL IV STA (12:51)
--- NOTE | 2021-09-24 12:59 | Emergency Department Note ---
Impression & Plan Hypokalemia, Ureterolithiasis, Hyponatremia, Lumbar transverse process fracture, Hydronephrosis due to obstruction of ureter ED Provider Note NAME: JOSHUA ZAVALA AGE: 71 SEX: F ARRIVES VIA: Ambulance INFORMANT: Patient ED PROVIDER(S): Semaj Hernandez MD CHIEF COMPLAINT: Fall, back pain, weakness PLAN: Disposition: Admit MEDICAL DECISION MAKING: The patient is a pleasant 71-year-old woman with a past medical history of diastolic heart failure, DVT, hypertension, hyperlipidemia, nephrolithiasis, PUD sleep apnea who presents to the emergency department after having a mechanical fall where she was attempting to get blows out of her closet and lost her balance falling backwards hitting her lower back on the commode before falling to the ground. She denies hitting her head or loss of consciousness. She was unable to get up secondary to pain. Prior to today she reports she has been in her recent state of health where she reports she has been managing increased fluid retention with a water pill prescribed by her providers. She denies any new cough, congestion, fevers, chills, nausea, vomiting, diarrhea or urinary symptoms. On arrival the patient is uncomfortable no acute distress, afebrile stable vital signs. She appears euvolemic to dry. He has no cervical or thoracic midline tenderness to palpation or step-offs. She does have lumbar paraspinal muscle tenderness left, greater than right with left-sided ecchymosis/contusion noted. There is no bony crepitus. She has normal strength in all extremities. WBC, H/H and platelets within normal limits. Chemistry without metabolic acidosis. BUN is elevated at 29 with BUN/creatinine> 30. Potassium is 1.7 with repletion initiated. Sodium 125. Magnesium 1.9 and electrolytes otherwise unremarkable. LFTs are unremarkable. UA with out convincing evidence of infection. COVID-19 RNA, NAAT test was negative. CT of the lumbar spine and abdomen pelvis were it was performed. Findings notes acute mildly displaced fracture of the left transverse process of L3 and possib le acute displaced fractures of the left transverse process of L2 1 and 2. Incidental note is made of right-sided mid ureteral calculus measuring 5 x 3 mm with mild right-sided hydronephrosis. Given the patient's electrolyte abnormalities reasonable to admit the patient for further management. The patient is in agreement with this. Kathy Lott PAC, with Dr. Jeniffer Chavez hospitalist who will evaluate the patient for admission. Triage Nursing notes reviewed and agree them. Prior medical records reviewed Vital Signs: reviewed and remarkable for no significant abnormalities Differential diagnosis: Fracture, dislocation, contusion, intra-abdominal, pneumothorax, intrathoracic, intracranial, neurologic, compartment syndrome, rhabdomyolysis, as well as other pathologies. ER treatment provided: See below. Diagnostics interpreted by me: Cardiac Monitoring: An order for continuous cardiac monitoring was placed and demonstrated NSR, 63 bpm, no ectopy. Laboratory studies: See below Imaging studies: See below Consultation(s): Kathy Lott PAC, with Dr. Jeniffer Chavez hospitalist who will evaluate the patient for admission. HPI: The patient is a pleasant 71-year-old woman with a past medical history of diastolic heart failure, DVT, hypertension, hyperlipidemia, nephrolithiasis, PUD sleep apnea who presents to the emergency department after having a mechanical fall where she was attempting to get blows out of her closet and lost her balance falling backwards hitting her lower back on the commode before falling to the ground. She denies hitting her head or loss of consciousness. She was unable to get up secondary to pain. Prior to today she reports she has been in her recent state of health where she reports she has been managing increased fluid retention with a water pill prescribed by her providers. She denies any new cough, congestion, fevers, chills, nausea, vomiting, diarrhea or urinary symptoms. ROS: See above HPI for pertinent positives & negatives. A total of 10 systems reviewed and were otherwise negative. PAST MEDICAL HISTORY:See Below PAST SURGICAL HISTORY:See Below FAMILY HISTORY:See Below SOCIAL HISTORY:See Below HOME MEDICATIONS:See Below ALLERGIES:See Below VITALS:See Below PHYSICAL EXAMINATION: GENERAL: Awake, alert, uncomfortable-appearing, in no distress HENT: Normocephalic, atraumatic. Oropharynx with dry mucous membranes and otherwise unremarkable.. EYES: Normal conjunctiva. Sclera non-icteric. NECK: Supple. No nuchal rigidity. FROM. No JVD. RESPIRATORY: Clear to auscultation. CARDIAC: Regular rate, normal rhythm. 3/6 systolic murmur. Extremities warm and well perfused. Pulses equal. ABDOMEN: Soft, non-distended. No tenderness to palpation. No rebound or guarding. No masses. RECTAL: Deferred. MUSCULOSKELETAL: Chest examination reveals no tenderness. The back is symmetrical on inspection without obvious abnormality. No cervical or thoracic midline tenderness to palpation or step-offs. Mild lumbar paraspinal muscle tenderness left greater than right with left-sided ecchymosis/contusion noted. No bony crepitus. There is no CVA tenderness to palpation. No joint edema. LOWER EXTREMITIES: Calves are equal size bilaterally and non-tender. No edema. No discoloration. NEURO: Normal sensorium. No sensory or motor deficits noted. SKIN: No rash or jaundice noted. ED COURSE: Critical Care: I have personally spent greater than 35 minutes of critical care time in the direct management of this patient. This includes bedside care, interpretation of diagnostic studies, and testing, discussion with consultants, patient, and family members, and other required patient management activities. This 35 minutes is in excess of all separately billable procedures. Semaj Hernandez MD Past Med/Surg History Medical History Anemia hx Asthma Chronic diastolic (congestive) heart failure follows w/[facility] (Dr. Otoole) Chronic sinusitis Chronic urinary tract infection Deep vein thrombosis RLE (15+ years ago), secondary immobility, treated w/AC Depression History of kidney stones Hyperlipidemia per records Hyperparathyroidism Incisional hernia Many, on abdomen from multiple surgeries/feeding tube MRSA (methicillin resistant staph aureus) culture positive Left wrist -- had 3 nasal swab and all negative - patient states thru [facility] Obesity Pancreatic insufficiency Peripheral neuropathy Port-A-Cath in place right side due to poor vascular access PUD (peptic ulcer disease) hx of and had feeding tube for 28 years and has been removed for 11 years PVC (premature ventricular contraction) Reactive hypoglycemia Sepsis 05/2020 @ [facility], urosepsis 2/2 obstructing renal stone, S/P cysto/stent and ESWL Short bowel syndrome Sleep apnea BIPAP, t/c nighttime O2 per pt Urinary leakage Vitamin D deficiency Wrist injury Scar tissue surrounding remote wrist ORIF several years ago resulting in intermittent inflammation per pt Surgical History History of appendectomy History of cardiac cath 08/2019 ([place]): essentially normal coronary arteries angiographically, + luminal irregularities. no stents History of cholecystectomy History of colonoscopy (~2015) History of cystoscopy with stone removal History of esophagogastroduodenoscopy (EGD) (~2015) History of gastrointestinal surgery multiple History of joint replacement Rt thumb History of knee replacement procedure of right knee History of lithotripsy History of open reduction and internal fixation (ORIF) procedure LUE History of partial gastrectomy History of prior ablation treatment Right LE in January 2020 and left LE 04/18/20 History of sinus surgery History of tonsillectomy and adenoidectomy History of total abdominal hysterectomy and bilateral salpingo-oophorectomy Status post laser lithotripsy of ureteral calculus (~07/26/20) [facility] Status post laser lithotripsy of ureteral calculus (~02/04/21) Family History Mother Family history of diabetes mellitus Sister Family history of diabetes mellitus Father Esophageal cancer Other Family history non-contributory No family history of adverse response to anesthesia Social History Smoking Status: Never smoker Second Hand Exposure: Yes (parents smoke); Hx Alcohol Use: Yes Alcohol type: beer Preferred Language: Khmer Communication Ability: Effective Visual Impairment: No Limitations [employer] Supervisor Required: No Beliefs That Will Affect Care: None Current Living Situation: Alone [facility] Feels Safe at Home: Yes Assistive Devices: BiPap, Glasses and Walker Allergies Allergies Allergy/AdvReac Type Severity Reaction Status Date / Time bethanechol Allergy Intermediate RASH, Verified 09/24/21 14:56 "FEELS FUNNY" ertapenem Allergy Intermediate RASH Verified 09/24/21 14:56 Sulfa (Sulfonamide Allergy Intermediate Generalized Verified 09/24/21 14:56 Antibiotics) Rash Cephalosporins Allergy Mild RASH, Verified 09/24/21 14:56 DIARRHEA levofloxacin Allergy Mild RASH,TURNED Verified 09/24/21 14:56 RED promethazine Allergy Mild UNKNOWN Verified 09/24/21 14:56 tobramycin Allergy Mild UNKNOWN Verified 09/24/21 14:56 clindamycin Allergy Unknown Unknown Verified 09/24/21 14:56 dipyridamole Allergy Unknown UNKNOWN Verified 09/24/21 14:56 droperidol Allergy Unknown Unknown Verified 09/24/21 14:56 aspirin AdvReac Intermediate BLEEDING Verified 09/24/21 14:56 nitrofurantoin AdvReac Intermediate Vomiting Verified 09/24/21 14:56 [From Macrobid] tedizolid AdvReac Intermediate GI SYMPTOMS Verified 09/24/21 14:56 bupropion AdvReac Mild NERVOUS Verified 09/24/21 14:56 REACTION cephalexin AdvReac Mild GI SYMPTOMS Verified 09/24/21 14:56 morphine AdvReac Mild NERVOUS Verified 09/24/21 14:56 REACTION TO IT prochlorperazine AdvReac Mild NERVOUS Verified 09/24/21 14:56 REACTION Home Meds Home Medications Medication Instructions Recorded Confirmed colesevelam 625 mg tablet (WelChol) 625 mg PO TID tab 06/17/18 09/24/21 lorazepam 0.5 mg tablet (Ativan) 0.5 mg PO TID PRN tab 06/17/18 09/24/21 montelukast 10 mg tablet 10 mg PO HS 06/17/18 09/24/21 (Singulair) ipratropium 0.5 mg-albuterol 3 mg 3 ml INHALATION Q4H PRN 05/05/19 09/24/21 (2.5 mg base)/3 mL nebulization soln [id number] 4 cap PO TID 05/05/19 09/24/21 24,000-76,000-120,000 unit capsule,delayed rel (Creon) pyridoxine (vitamin B6) 100 mg 100 mg PO BID 05/05/19 09/24/21 tablet (Vitamin B-6) omeprazole magnesium 20 mg 20 mg PO BID tab 05/17/19 09/24/21 tablet,delayed release (Prilosec OTC) mecobalamin (vitamin B12) 1,000 1,000 mcg PO QAM 01/21/21 09/24/21 mcg disintegrating tablet,sublingual risperidone 2 mg tablet 2 mg PO HS 02/27/21 09/24/21 albuterol sulfate 90 mcg/actuation 2 inh INH Q6H PRN 09/24/21 09/24/21 breath activated powder inhaler carvedilol 3.125 mg tablet 3.125 mg PO BID 09/24/21 09/24/21 ferrous sulfate 325 mg (65 mg 325 mg PO DAILY 09/24/21 09/24/21 iron) tablet fluticasone fur. 100 mcg-umeclid 1 inh INHALATION DAILY 09/24/21 09/24/21 62.5 mcg-vilant 25 mcg inhalat.powder (Trelegy Ellipta) metolazone 2.5 mg tablet 2.5 mg PO DAILY 09/24/21 09/24/21 mirabegron 50 mg tablet,extended 50 mg PO DAILY 09/24/21 09/24/21 release 24 hr (Myrbetriq) potassium chloride 10 mEq 10 meq PO BID 09/24/21 09/24/21 capsule,extended release ropinirole 0.25 mg tablet 0.25 mg PO HS 09/24/21 09/24/21 valacyclovir 500 mg tablet 500 mg PO DAILY 09/24/21 09/24/21 Previous Rx's Medication Instructions Recorded BiPap Machine #1 ea 07/24/20 docusate sodium 100 mg capsule 100 mg PO BID #60 cap 09/04/20 (Colace) tamsulosin 0.4 mg capsule 0.4 mg PO HS #30 cap 04/29/21 Flutter Valve #1 ea 06/19/21 fluticasone fur. 100 mcg-umeclid 1 inh INH QAM #60 ea 06/19/21 62.5 mcg-vilant 25 mcg inhalat.powder (Trelegy Ellipta) pregabalin 150 mg capsule (Lyrica) 150 mg PO TID #90 cap 08/06/21 oxycodone-acetaminophen 5 mg-325 1 tab PO Q6H PRN #30 tab 08/08/21 mg tablet (Percocet) furosemide 40 mg tablet 60 mg PO BID #270 tab 08/28/21 Results & Data (ED) Vital Signs Vital Signs - 24 hr 09/24/21 12:21 09/24/21 12:49 09/24/21 13:30 Temperature 36.6 C Temperature Source Oral Pulse Rate 66 66 Pulse Rate [Radial] 65 Pulse Rhythm Regular Regular Pulse Rhythm [Radial] Regular Pulse Strength Normal Pulse Strength [Radial] Normal Respiratory Rate 20 20 17 Respiratory Effort / Characteristics Non-Labored Non-Labored Respiratory Depth Normal Normal Respiratory Pattern Regular Blood Pressure 121/56 L Blood Pressure [Left Arm] 115/64 Blood Pressure Mean 77 Blood Pressure Mean [Left Arm] 81 Blood Pressure Position Lying Blood Pressure Position [Left Arm] Lying Pulse Oximetry 97 98 94 Oxygen Delivery Method Room Air Room Air Room Air Sepsis Recent Fever Within 48 Hours No Sepsis New/Unexplained Change in Mental Status No Sepsis Action Taken by Nursing No Action Required 09/24/21 14:00 09/24/21 14:30 09/24/21 15:00 Temperature Temperature Source Pulse Rate Pulse Rate [Radial] 63 67 63 Pulse Rhythm Pulse Rhythm [Radial] Regular Regular Regular Pulse Strength Pulse Strength [Radial] Normal Normal Normal Respiratory Rate 19 16 16 Respiratory Effort / Characteristics Non-Labored Non-Labored Non-Labored Respiratory Depth Normal Normal Normal Respiratory Pattern Blood Pressure Blood Pressure [Left Arm] 142/67 H 115/64 120/62 Blood Pressure Mean Blood Pressure Mean [Left Arm] 92 81 81 Blood Pressure Position Blood Pressure Position [Left Arm] Lying Lying Pulse Oximetry 94 94 94 Oxygen Delivery Method Room Air Room Air Room Air Sepsis Recent Fever Within 48 Hours Sepsis New/Unexplained Change in Mental Status Sepsis Action Taken by Nursing 09/24/21 16:00 09/24/21 16:30 09/24/21 17:00 Temperature Temperature Source Pulse Rate Pulse Rate [Radial] 66 68 64 Pulse Rhythm Pulse Rhythm [Radial] Regular Regular Pulse Strength Pulse Strength [Radial] Normal Normal Respiratory Rate 16 20 18 Respiratory Effort / Characteristics Non-Labored Non-Labored Non-Labored Respiratory Depth Normal Normal Normal Respiratory Pattern Blood Pressure Blood Pressure [Left Arm] 118/60 110/64 136/66 Blood Pressure Mean Blood Pressure Mean [Left Arm] 79 79 89 Blood Pressure Position Blood Pressure Position [Left Arm] Lying Lying Pulse Oximetry 95 95 98 Oxygen Delivery Method Room Air Room Air Room Air Sepsis Recent Fever Within 48 Hours Sepsis New/Unexplained Change in Mental Status Sepsis Action Taken by Nursing 09/24/21 17:30 09/24/21 18:00 Temperature Temperature Source Pulse Rate Pulse Rate [Radial] 65 66 Pulse Rhythm Pulse Rhythm [Radial] Regular Pulse Strength Pulse Strength [Radial] Normal Respiratory Rate 18 20 Respiratory Effort / Characteristics Non-Labored Respiratory Depth Normal Normal Respiratory Pattern Regular Blood Pressure Blood Pressure [Left Arm] 120/69 117/64 Blood Pressure Mean Blood Pressure Mean [Left Arm] 86 81 Blood Pressure Position Blood Pressure Position [Left Arm] Lying Lying Pulse Oximetry 98 94 Oxygen Delivery Method Room Air Room Air Sepsis Recent Fever Within 48 Hours Sepsis New/Unexplained Change in Mental Status Sepsis Action Taken by Nursing Laboratory Data Attestation: I reviewed the patient's lab results. Result diagrams: 09/24/21 13:52 09/24/21 21:10 Lab Results 09/24/21 09/24/21 09/24/21 Range/Units 13:05 13:52 13:52 WBC 6.89 (4.8-10.8) K/uL RBC 4.57 (4.2-5.4) M/uL Hgb 13.7 (12.0-16.0) g/dL Hct 38.7 (37-47) % MCV 84.7 (80-100) fL MCH 30.0 (25-34) pg MCHC 35.4 (32-36) g/dL RDW Std Deviation 40.1 (36.4-46.3) fL RDW Coeff of David 12.9 (11.5-14.5) % Plt Count 173 (130-400) K/uL MPV 10.3 (7.4-10.4) fL Immature Gran % (Auto) 0.4 % Neut % (Auto) 76.3 % Lymph % (Auto) 13.8 % [place] % (Auto) 9.0 % Eos % (Auto) 0.4 % Baso % (Auto) 0.1 % Neut # (Auto) 5.25 (1.4-6.5) K/uL Lymph # (Auto) 0.95 L (1.2-3.4) K/uL [place] # (Auto) 0.62 H (0.11-0.59) K/uL Eos # (Auto) 0.03 (0-0.5) K/uL Baso # (Auto) 0.01 (0-0.2) K/uL Immature Gran # (Auto) 0.03 H (0.00-0.02) K/uL PT (9.0-12.0) Seconds INR (0.9-1.1) Sodium 125 L (136-145) mmol/L Potassium 1.7 L* (3.5-5.1) mmol/L Chloride 81 L (98-107) mmol/L Carbon Dioxide 34 H (21-32) mmol/L Anion Gap 10.0 (3-11) BUN 29 H (7-18) mg/dl Creatinine 0.90 (0.6-1.2) mg/dl Est Cr Clr Drug Dosing 59.0 ml/min Est GFR ( Amer) 75.6 ml/min Est GFR (Non-Af Amer) 65.2 ml/min BUN/Creatinine Ratio 31.8 H (10-20) Glucose 119 H (70-99) mg/dl Osmolality (280-300) mOsm/kg Calcium 7.8 L (8.5-10.1) mg/dl Phosphorus 2.9 (2.5-4.9) mg/dl Magnesium 1.9 (1.8-2.4) mg/dl Total Bilirubin 0.4 (0.2-1) mg/dl AST 27 (15-37) U/L ALT 26 (12-78) Alkaline Phosphatase 162 H (45-117) U/L NT-Pro-B Natriuret Pep 156 (0-900) pg/ml Total Protein 6.9 (6.4-8.2) gm/dl Albumin 3.2 L (3.4-5.0) gm/dl Globulin 3.7 (2.5-4.0) gm/dl Albumin/Globulin Ratio 0.9 (0.9-2) Urine Color Urine Appearance (Clear) Urine pH (4.5-7.5) Ur Specific [place] (1.000-1.030) Urine Protein (Negative) Urine Glucose (UA) (Negative) Urine Ketones (Negative) Urine Blood (Negative) Urine Nitrite (Negative) Urine Bilirubin (Negative) Urine Urobilinogen (Negative) Ur Leukocyte Esterase (Negative) Urine WBC (Auto) (0-5) /hpf Urine RBC (Auto) (0-4) /hpf U Hyaline Cast (Auto) (0-5) /lpf U Epithel Cells (Auto) (0-5) /lpf Urine Bacteria (Auto) (Negative) SARS-CoV-2, RNA, NAAT NEGATIVE (NEGATIVE) 09/24/21 09/24/21 09/24/21 Range/Units 14:33 17:12 18:00 WBC (4.8-10.8) K/uL RBC (4.2-5.4) M/uL Hgb (12.0-16.0) g/dL Hct (37-47) % MCV (80-100) fL MCH (25-34) pg MCHC (32-36) g/dL RDW Std Deviation (36.4-46.3) fL RDW Coeff of David (11.5-14.5) % Plt Count (130-400) K/uL MPV (7.4-10.4) fL Immature Gran % (Auto) % Neut % (Auto) % Lymph % (Auto) % [place] % (Auto) % Eos % (Auto) % Baso % (Auto) % Neut # (Auto) (1.4-6.5) K/uL Lymph # (Auto) (1.2-3.4) K/uL [place] # (Auto) (0.11-0.59) K/uL Eos # (Auto) (0-0.5) K/uL Baso # (Auto) (0-0.2) K/uL Immature Gran # (Auto) (0.00-0.02) K/uL PT 10.6 (9.0-12.0) Seconds INR 1.0 (0.9-1.1) Sodium (136-145) mmol/L Potassium (3.5-5.1) mmol/L Chloride (98-107) mmol/L Carbon Dioxide (21-32) mmol/L Anion Gap (3-11) BUN (7-18) mg/dl Creatinine (0.6-1.2) mg/dl Est Cr Clr Drug Dosing ml/min Est GFR ( Amer) ml/min Est GFR (Non-Af Amer) ml/min BUN/Creatinine Ratio (10-20) Glucose (70-99) mg/dl Osmolality 275 L (280-300) mOsm/kg Calcium (8.5-10.1) mg/dl Phosphorus (2.5-4.9) mg/dl Magnesium (1.8-2.4) mg/dl Total Bilirubin (0.2-1) mg/dl AST (15-37) U/L ALT (12-78) Alkaline Phosphatase (45-117) U/L NT-Pro-B Natriuret Pep (0-900) pg/ml Total Protein (6.4-8.2) gm/dl Albumin (3.4-5.0) gm/dl Globulin (2.5-4.0) gm/dl Albumin/Globulin Ratio (0.9-2) Urine Color Yellow Urine Appearance Clear (Clear) Urine pH 7.5 (4.5-7.5) Ur Specific [place] 1.017 (1.000-1.030) Urine Protein Negative (Negative) Urine Glucose (UA) Negative (Negative) Urine Ketones Negative (Negative) Urine Blood Negative (Negative) Urine Nitrite Negative (Negative) Urine Bilirubin Negative (Negative) Urine Urobilinogen Negative (Negative) Ur Leukocyte Esterase 2+ H (Negative) Urine WBC (Auto) 5-10 H (0-5) /hpf Urine RBC (Auto) 0-4 (0-4) /hpf U Hyaline Cast (Auto) 1-5 (0-5) /lpf U Epithel Cells (Auto) 20-30 H (0-5) /lpf Urine Bacteria (Auto) Negative (Negative) SARS-CoV-2, RNA, NAAT (NEGATIVE) Administered Medications Acetaminophen (Acetaminophen 500 Mg Tab) 1,000 mg PO Q8H CATE Stop: 10/24/21 18:44 Last Admin: 09/24/21 20:09 Dose: 1,000 mg Documented by: [id number] Carvedilol (Carvedilol 3.125 Mg Tab) 3.125 mg PO BID CATE Stop: 10/24/21 20:59 Last Admin: 09/24/21 22:29 Dose: 3.125 mg Documented by: [id number] Docusate Sodium (Docusate Sodium 100 Mg Cap) 100 mg PO BID CATE Stop: 10/24/21 20:59 Last Admin: 09/24/21 22:29 Dose: 100 mg Documented by: [id number] Heparin Sodium (Porcine) (Heparin Sod 5,000 Unit/0.5 Ml Vial) 5,000 units SQ Q8 CATE Stop: 10/24/21 21:59 Last Admin: 09/24/21 22:31 Dose: 5,000 units Documented by: [id number] Potassium Chloride/Sodium Chloride (Normal Saline W/20 Meq Kcl) 20 meq in 1,000 mls @ 125 mls/hr IV .Q8H CATE Stop: 09/25/21 21:44 Last Admin: 09/24/21 22:31 Dose: 125 mls/hr Documented by: [id number] Montelukast Sodium (Montelukast Sodium 10 Mg Tablet) 10 mg PO HS CATE Stop: 10/24/21 20:59 Last Admin: 12/21/21 22:29 Dose: 10 mg Documented by: [id number] Pantoprazole Sodium (Pantoprazole 40 Mg Tab) 40 mg PO BID CATE Stop: 10/24/21 20:59 Last Admin: 09/24/21 22:30 Dose: 40 mg Documented by: [id number] Potassium Chloride (Potassium Chloride 10 Meq Tabcr) 10 meq PO BID CATE Stop: 10/24/21 20:59 Last Admin: 09/24/21 22:30 Dose: 10 meq Documented by: [id number] Pregabalin (Pregabalin 150 Mg Cap) 150 mg PO TID CATE Stop: 10/24/21 20:59 Last Admin: 09/24/21 22:30 Dose: 150 mg Documented by: [id number] Pyridoxine HCl (Pyridoxine Hcl 50 Mg Tab) 100 mg PO BID CATE Stop: 10/24/21 20:59 Last Admin: 09/24/21 22:30 Dose: 100 mg Documented by: [id number] Risperidone (Risperidone 2 Mg Tablet) 2 mg PO HS CATE Stop: 10/24/21 20:59 Last Admin: 09/24/21 22:31 Dose: 2 mg Documented by: [id number] Ropinirole HCl (Ropinirole Hcl 0.25 Mg Tablet) 0.25 mg PO [facility] Stop: 10/24/21 20:59 Last Admin: 09/24/21 22:31 Dose: 0.25 mg Documented by: [id number] Tamsulosin HCl (Tamsulosin Hcl 0.4 Mg Cap) 0.4 mg PO CATE Stop: 10/24/21 20:59 Last Admin: 09/24/21 22:31 Dose: 0.4 mg Documented by: [id number] Discontinued Medications Azithromycin (Azithromycin 250 Mg Tab) 500 mg PO NOW ONE Stop: 09/24/21 18:53 Last Admin: 09/24/21 20:10 Dose: 500 mg Documented by: [id number] Hydromorphone HCl (Hydromorphone Inj 0.5 Mg/0.5 Ml Syr) 0.5 mg IV NOW STA Stop: 09/24/21 18:40 Last Admin: 09/24/21 20:09 Dose: 0.5 mg Documented by: [id number] Acetaminophen (Ofirmev) 1,000 mg in 100 mls @ 400 mls/hr IV NOW STA Stop: 09/24/21 13:05 Last Infusion: 09/24/21 14:14 Dose: 0 mls/hr Documented by: [id number] Admin: 09/24/21 13:54 Dose: 400 mls/hr Documented by: [id number] Potassium Chloride (K Hermilo / Wtr) 10 meq in 100 mls @ 100 mls/hr IV Q1H CATE; Protocol Stop: 09/24/21 19:44 Last Infusion: 09/24/21 22:58 Dose: 0 mls/hr Documented by: [id number] Admin: 09/24/21 20:09 Dose: 100 mls/hr Documented by: [id number] Infusion: 09/24/21 20:02 Dose: 100 mls/hr Documented by: [id number] Admin: 09/24/21 19:02 Dose: 100 mls/hr Documented by: [id number] Sodium Chloride (Nss) 500 mls @ 125 mls/hr IV .Q4H CATE Stop: 10/24/21 17:44 Last Infusion: 09/24/21 22:58 Dose: 0 mls/hr Documented by: [id number] Admin: 09/24/21 17:55 Dose: 125 mls/hr Documented by: [id number] Magnesium Sulfate/Dextrose (Magnesium Sulfate / D5w) 1 gm in 100 mls @ 100 mls/hr IV NOW STA Stop: 09/24/21 18:37 Last Infusion: 09/24/21 19:01 Dose: 0 mls/hr Documented by: [id number] Admin: 09/24/21 17:55 Dose: 100 mls/hr Documented by: [id number] Ioversol (Optiray 320 100ml) 94 ml IV ONCE ONE Stop: 09/24/21 15:54 Last Admin: 09/24/21 15:55 Dose: 94 ml Documented by: [id number] Potassium Chloride (Potassium Chloride Crtab 20 Meq Tabcr) 40 meq PO NOW STA Stop: 09/24/21 17:38 Last Admin: 09/24/21 17:53 Dose: 40 meq Documented by: [id number] Potassium Chloride (Potassium Chloride Crtab 20 Meq Tabcr) 40 meq PO NOW STA Stop: 09/24/21 21:59 Last Admin: 09/24/21 22:57 Dose: 40 meq Documented by: [id number] Potassium Chloride (Potassium Chloride Crtab 20 Meq Tabcr) 40 meq PO ONE ONE Stop: 09/24/21 00:01 Last Admin: 09/25/21 00:02 Dose: 40 meq Documented by: [id number] Imaging Data Radiologist's Impression: Abdomen/Pelvis CT 09/24/21 12:51 CT OF THE ABDOMEN AND PELVIS WITH CONTRAST CLINICAL HISTORY: back pain, contusion, fall COMPARISON STUDY: CT of the abdomen and pelvis March 22, 2021. Renal ultrasound July 01, 2021. TECHNIQUE: Following IV administration of Optiray, axial images of the abdomen and pelvis were obtained from the lung bases to the proximal femurs. Images were reviewed in the axial, sagittal, and coronal planes. IV contrast was administered without complication. Automated exposure control was utilized for the study. A dose lowering technique was utilized adhering to the principles of ALARA. FINDINGS: Ground glass opacities within the lower lungs are similar to chest CT July 18, 2021. No pneumatosis, free air or portal venous gas is present. There is no evidence for traumatic injury to the liver, spleen, adrenal glands, kidneys or pancreas. Mild biliary ductal dilatation is unchanged and likely related to cholecystectomy. The choledochojejunostomy is noted. Moderate right renal atrophy is noted. A 5 mm x 3 mm mid right ureteral calculus results in mild right hydronephrosis. Multiple bilateral renal calculi are noted. Calculus burden is decreased since CT of March 22, 2021. There are no left ureteral calculi. Marked laxity of the anterior abdominal wall with diastases is again noted. This is unchanged. There is no evidence for a bowel obstruction. The ca liber and wall thickness of small and large bowel are normal. There is no free fluid. There is no hemoperitoneum. No acute pelvic fracture is noted. There is no acute hip fracture. Note is made of an acute mildly displaced fracture of the left transverse process of L3. There are possible acute nondisplaced fractures of the left transverse processes of L1 and L2. IMPRESSION: 1. No evidence for traumatic injury to the solid abdominal viscera. 2. Acute mildly displaced fracture of the left transverse process of L3. Possible acute displaced fractures of the left transverse processes of L1 and L2. 3. 5 mm x 3 mm mid right ureteral calculus. This results in mild right hydronephrosis. 4. Bilateral nephrolithiasis. ACT 112: Negative or not required by law. Electronically signed by: Mehrdad Torre M.D. 09/24/2021 4:12 PM Chest X-Ray 09/24/21 12:51 XR chest 1V portable CLINICAL HISTORY: Status post fall with pain. COMPARISON STUDY: 11/02/2020 TECHNIQUE: 1 view of the chest FINDINGS: Single frontal view of the chest demonstrates the cardiomediastinal silhouette to be within normal limits. A Port-A-Cath is in place. The lungs are clear of alveolar opacities. There is no evidence for pleural effusion. There is no evidence for vascular congestion. There is no acute osseous pathology. IMPRESSION: No acute cardiopulmonary disease. ACT 112: Negative or not required by law. Electronically signed by: Mitchell Moran M.D. 09/24/2021 1:[address] 09/24/21 12:51 CT lumbar spine w con CLINICAL HISTORY: Status post fall with pain COMPARISON STUDY: CT of the abdomen and pelvis from 03/22/2021 CT DOSE: 1252.84 mGy.cm TECHNIQUE: Standard CT of the Lumbar Spine was performed with 94 mL of Optiray 320 IV contrast which was given for earlier CT of the abdomen and pelvis. A dose lowering technique was utilized adhering to the principles of ALARA. FINDINGS: Bones: Bones are diffusely osteopenic. There is no evidence for an acute fracture or malalignment. Minimal old wedge deformities are present involving the inferior endplate of L2 and the superior endplate of L3 as seen on the old CT of the abdomen and pelvis. The heights of the remaining lumbar vertebral bodies are maintained. The vertebral bodies are in anatomic alignment. Is an omental is maintained of a hemangioma of the L3 vertebral body which is also unchanged. Disc spaces: The disc space heights are maintained. There is mild bulging of the annulus at L4-5 and L5-S1. There is vacuum disc phenomenon and calcification of the annulus at L5-S1. Facet joints: Mild hypertrophic facet joint disease is seen at the lower 2 disc space levels. There is asymmetric general change involving the right SI joint. Soft tissues: The prevertebral soft tissues are within normal limits. IMPRESSION: 1. Osteopenia with no acute osseous pathology. 2. Minimal old wedge deformities of L2 and L3. 3. 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 ACT 112: Negative or not required by law. Electronically signed by: Mitchell Moran M.D. 09/24/2021 4:22 PM Discharge Plan Visit Data Chief Complaint: Back Injury/Pain Stated Complaint: FALL, BACK PAIN, WEAK, NAUSEA ED Provider: Semaj Hernandez Discharge Problem: Hypokalemia, Ureterolithiasis, Hyponatremia, Lumbar transverse process fractu re, Hydronephrosis due to obstruction of ureter Discharge Instructions Interventions: ED Discharge Assessment Last Done: 09/24/21 20:58 Discharge Problem: Lumbar transverse process fracture Qualifiers: Encounter type: initial encounter Fracture type: closed Qualified Code(s): S32.009A - Unspecified fracture of unspecified lumbar vertebra, initial encounter for closed fracture
--- NOTE | 2021-09-24 13:32 | XRay Report ---
XR chest 1V portable CLINICAL HISTORY: Status post fall with pain. COMPARISON STUDY: 11/02/2020 TECHNIQUE: 1 view of the chest FINDINGS: Single frontal view of the chest demonstrates the cardiomediastinal silhouette to be within normal li mits. A Port-A-Cath is in place. The lungs are clear of alveolar opacities. There is no evidence for pleural effusion. There is no evidence for vascular congestion. There is no acute osseous pathology. IMPRESSION: No acute cardiopulmonary disease. ACT 112: Negative or not required by law. Electronically signed by: Mitchell Moran M.D. 09/24/2021 1:31 PM
[2021-09-24 14:06] LABS: Basophils # (auto) 0.01 K/uL (0-0.2); Basophils % (auto) 0.1 %; Eosinophils # (auto) 0.03 K/uL (0-0.5); Eosinophils % (auto) 0.4 %; Hematocrit (blood only) 38.7 % (37-47); Hemoglobin 13.7 g/dL (12.0-16.0); Immature Granulocytes # (auto) 0.03 K/uL (0.00-0.02); Immature Granulocytes % (auto) 0.4 %; Lymphocytes # (auto) 0.95 K/uL (1.2-3.4); Lymphocytes % (auto) 13.8 %; Mean Corpuscular Hgb Conc 35.4 g/dL (32-36); Mean Corpuscular Volume 84.7 fL (80-100); Mean Platelet Volume 10.3 fL (7.4-10.4); Monocytes # (auto) 0.62 K/uL (0.11-0.59); Neutrophils # (auto) 5.25 K/uL (1.4-6.5); Neutrophils % (auto) 76.3 %; Platelet Count 173 K/uL (130-400); RDW Coefficient of Variation 12.9 % (11.5-14.5); RDW Standard Deviation 40.1 fL (36.4-46.3); Red Blood Count 4.57 M/uL (4.2-5.4); White Blood Count 6.89 K/uL (4.8-10.8)
[2021-09-24 14:50] LABS: Albumin Level 3.2 gm/dl (3.4-5.0); BUN Creatinine Ratio 31.8 (10-20); Bilirubin,Total 0.4 mg/dl (0.2-1); Calcium 7.8 mg/dl (8.5-10.1); Est GFR (African American) 75.6 ml/min; Est GFR (Non-African American) 65.2 ml/min; Globulin 3.7 gm/dl (2.5-4.0); Magnesium 1.9 mg/dl (1.8-2.4); Phosphorus 2.9 mg/dl (2.5-4.9); Potassium 1.7 mmol/L (3.5-5.1); Total Protein 6.9 gm/dl (6.4-8.2)
[2021-09-24 14:51] LABS: Prothrombin Time 10.6 Seconds (9.0-12.0)
[2021-09-24 15:24] LABS: Albumin Globulin Ratio 0.9 (0.9-2)
[2021-09-24] MEDS ORDERED: OPTIRAY 320 100ml IV ONE (15:53)
--- NOTE | 2021-09-24 16:14 | CT Scan Report ---
CT OF THE ABDOMEN AND PELVIS WITH CONTRAST CLINICAL HISTORY: back pain, contusion, fall COMPARISON STUDY: CT of the abdomen and pelvis March 22, 2021. Renal ultrasound July 01, 2021. TECHNIQUE: Following IV administration of Optiray, axial images of the abdomen and pelvis were obtain ed from the lung bases to the proximal femurs. Images were reviewed in the axial, sagittal, and coron al planes. IV contrast was administered without complication. Automated exposure control was utilize d for the study. A dose lowering technique was utilized adhering to the principles of ALARA. FINDINGS: Ground glass opacities within the lower lungs are similar to chest CT July 18, 2021. No pneumatosis, free air or portal venous gas is present. There is no evidence for traumatic injury to t he liver, spleen, adrenal glands, kidneys or pancreas. Mild biliary ductal dilatation is unchanged an d likely related to cholecystectomy. The choledochojejunostomy is noted. Moderate right renal atrophy is noted. A 5 mm x 3 mm mid right ureteral calculus results in mild right hydronephrosis. Multiple b ilateral renal calculi are noted. Calculus burden is decreased since CT of March 22, 2021. There are n o left ureteral calculi. Marked laxity of the anterior abdominal wall with diastases is again noted. This is unchanged. There is no evidence for a bowel obstruction. The caliber and wall thickness of sm all and large bowel are normal. There is no free fluid. There is no hemoperitoneum. No acute pelvic f racture is noted. There is no acute hip fracture. Note is made of an acute mildly displaced fracture of the left transverse process of L3. There are possible acute nondisplaced fractures of the left tra nsverse processes of L1 and L2. IMPRESSION: 1. No evidence for traumatic injury to the solid abdominal viscera. 2. Acute mildly displaced fracture of the left transverse process of L3. Possible acute displaced fra ctures of the left transverse processes of L1 and L2. 3. 5 mm x 3 mm mid right ureteral calculus. This results in mild right hydronephrosis. 4. Bilateral nephrolithiasis. ACT 112: Negative or not required by law. Electronically signed by: Mehrdad Torre M.D. 09/24/2021 4:12 PM
--- NOTE | 2021-09-24 16:23 | CT Scan Report ---
CT lumbar spine w con CLINICAL HISTORY: Status post fall with pain COMPARISON STUDY: CT of the abdomen and pelvis from 03/22/2021 CT DOSE: 1252.84 mGy.cm TECHNIQUE: Standard CT of the Lumbar Spine was performed with 94 mL of Optiray 320 IV contrast which was given for earlier CT of the abdomen and pelvis. A dose lowering technique was utilized adhering to the principles of ALARA. FINDINGS: Bones: Bones are diffusely osteopenic. There is no evidence for an acute fracture or malalignment. Mi nimal old wedge deformities are present involving the inferior endplate of L2 and the superior endpla te of L3 as seen on the old CT of the abdomen and pelvis. The heights of the remaining lumbar vertebr al bodies are maintained. The vertebral bodies are in anatomic alignment. Is an omental is maintained of a hemangioma of the L3 vertebral body which is also unchanged. Disc spaces: The disc space heights are maintained. There is mild bulging of the annulus at L4-5 and L5-S1. There is vacuum disc phenomenon and calcification of the annulus at L5-S1. Facet joints: Mild hypertrophic facet joint disease is seen at the lower 2 disc space levels. There i s asymmetric general change involving the right SI joint. Soft tissues: The prevertebral soft tissues are within normal limits. IMPRESSION: 1. Osteopenia with no acute osseous pathology. 2. Minimal old wedge deformities of L2 and L3. 3. Degenerative disc and degenerative facet joint disease along with degenerative right SI joint dise ase. ACT 112: Negative or not required by law. Electronically signed by: Mitchell Moran M.D. 09/24/2021 4:22 PM
[2021-09-24 17:24] LABS: Appearance Urine Clear (Clear); Bacteria Urine Automated Negative (Negative); Bilirubin Urine Negative (Negative); Blood Urine Negative (Negative); Color Urine Yellow; Epithelial Cell Urine Auto 20-30 /lpf (0-5); Glucose Urine UA Negative (Negative); Ketones Urine Negative (Negative); Leukocyte Esterase Urine 2+ (Negative); Nitrite Urine Negative (Negative); Protein Urine Negative (Negative); RBC Urine Automated 0-4 /hpf (0-4); Specific Gravity Urine 1.017 (1.000-1.030); Urobilinogen Urine Negative (Negative); pH Urine 7.5 (4.5-7.5)
[2021-09-24] MEDS ORDERED: POTASSIUM CHLORIDE CRTAB 20 MEQ TABCR PO STA ×2 (17:37→21:58)
[2021-09-24] MEDS ORDERED: MAGNESIUM SULFATE / D5W 1 GM/100 ML BAG IV STA (17:38)
[2021-09-24] MEDS ORDERED: SODIUM CHLORIDE 0.9% 500 ML IV SCH (17:45)
--- NOTE | 2021-09-24 18:18 | History & Physical Report ---
Date of Service September 24, 2021 Assessment & Plan (1) Fall: Plan: - Admit to med surg with tele - PT/OT consult - Ortho consulted for possible new L1-L2 transverse fracture and if needs for brace fitting or surgical intervention - Likely secondary to significant electrolyte abnormalities as below (2) Hypokalemia: Plan: -Potassium of 1.7 upon admission, receiving replacement via IV and p.o. -Trend BMP every 4 -Holding p.o. Lasix, was taking 60 mg twice daily and an extra 80 mg daily for diastolic CHF and lower extremity edema (3) Hyponatremia: Plan: -125 on admission, likely dehydrated secondary to Lasix use, appears hypovolemic on exam -Placement with IV fluids, holding Lasix (4) Nephrolithiasis: Plan: -History of such, patient states chronic, but has past six small kidney stones within the past 2 weeks she is having right-sided flank pain -CT abdomen pelvis shows mild right hydronephrosis, will consult nephrology -Pain control -IV fluids as above -Encourage p.o. intake - Denies hematuria, UA appears clear on admission (5) Sinus infection: Plan: - will start on azithromycin po today (6) Chronic diastolic (congestive) heart failure: Plan: - Continue po meds except for lasix DVT ppx: - tedterra, scds CODE: DNR/DNI Dispo: From home, likely to remain in the hospital x 1-2 days History of Present Illness Chief Complaint: Fall Primary Care Provider: Frederick Reynaga DO This is a 71-year-old female with PMHx of chronic diastolic CHF, short-bowel syndrome with chronic malabsorption, LARRY on BiPAP, chronic pain syndrome, HLD, asthma, depression, osteopenia, 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 She presents today status post a fall where she lost her balance while reaching for clothes that were hanging on a shower rack, and fell backwards and hit her lower back on commode. Her pain currently is rated as a 10 out of 10. She is bruised on her back on exam. Patient normally ambulates well without assistance and lives at home independently participating in all ADLs. She has a life alert button and therefore pressed it whenever she was on the ground. She admits to feeling "woozy" after she fell. She has been taking her medications routinely including Lasix 60 mg twice daily and 80 mg as needed for fluid in her legs, denies any changes in her diet recently. Denies any abdominal complaints or recent nausea, vomiting or diarrhea which could explain electrolyte abnormalities. Currently she does have a headache, and also reports feeling like she has had a sinus infection for the past week. She has postnasal drip as well as sinus pressure, headache, and green nasal discharge. Denies any known Covid positive contacts. After reviewing the imaging it appears that she has sustained mildly displaced fracture of the left transverse process of L3 and possible acute displaced fractures of left transverse processes of L1 and L2. Also concerning are her electrolyte abnormalities which include sodium of 125 and a potassium of 1.7 on admission. She had been given potassium 40 M EQ p.o., started on NSS at 125 an hour and given 1 g of mag. Allergies Allergy/AdvReac Type Severity Reaction Status Date / Time bethanechol Allergy Intermediate RASH, Verified 09/24/21 14:56 "FEELS FUNNY" ertapenem Allergy Intermediate RASH Verified 09/24/21 14:56 Sulfa (Sulfonamide Allergy Intermediate Generalized Verified 09/24/21 14:56 Antibiotics) Rash Cephalosporins Allergy Mild RASH, Verified 09/24/21 14:56 DIARRHEA levofloxacin Allergy Mild RASH,TURNED Verified 09/24/21 14:56 RED promethazine Allergy Mild UNKNOWN Verified 09/24/21 14:56 tobramycin Allergy Mild UNKNOWN Verified 09/24/21 14:56 clindamycin Allergy Unknown Unknown Verified 09/24/21 14:56 dipyridamole Allergy Unknown UNKNOWN Verified 09/24/21 14:56 droperidol Allergy Unknown Unknown Verified 09/24/21 14:56 metolazone AdvReac Severe Verified 09/26/21 10:26 aspirin AdvReac Intermediate BLEEDING Verified 09/24/21 14:56 nitrofurantoin AdvReac Intermediate Vomiting Verified 09/24/21 14:56 [From Macrobid] tedizolid AdvReac Intermediate GI SYMPTOMS Verified 09/24/21 14:56 bupropion AdvReac Mild NERVOUS Verified 09/24/21 14:56 REACTION cephalexin AdvReac Mild GI SYMPTOMS Verified 09/24/21 14:56 morphine AdvReac Mild NERVOUS Verified 09/24/21 14:56 REACTION TO IT prochlorperazine AdvReac Mild NERVOUS Verified 09/24/21 14:56 REACTION Home Medications Medication Instructions Recorded Confirmed Type colesevelam 625 mg tablet (WelChol) 625 mg PO TID tab 06/17/18 10/08/21 History lorazepam 0.5 mg tablet (Ativan) 0.5 mg PO TID PRN tab 06/17/18 10/08/21 History montelukast 10 mg tablet 10 mg PO HS 06/17/18 10/08/21 History (Singulair) ipratropium 0.5 mg-albuterol 3 mg 3 ml INHALATION Q4H PRN 05/05/19 10/08/21 History (2.5 mg base)/3 mL nebulization soln [id number] 4 cap PO TID 05/05/19 10/08/21 History 24,000-76,000-120,000 unit capsule,delayed rel (Creon) pyridoxine (vitamin B6) 100 mg 100 mg PO BID 05/05/19 10/08/21 History tablet (Vitamin B-6) omeprazole magnesium 20 mg 20 mg PO BID tab 05/17/19 10/08/21 History tablet,delayed release (Prilosec OTC) BiPap Machine #1 ea 07/24/20 10/08/21 Rx docusate sodium 100 mg capsule 100 mg PO BID #60 cap 09/04/20 10/08/21 Rx (Colace) mecobalamin (vitamin B12) 1,000 1,000 mcg PO QAM 01/21/21 10/08/21 History mcg disintegrating tablet,sublingual risperidone 2 mg tablet 2 mg PO HS 02/27/21 10/08/21 History tamsulosin 0.4 mg capsule 0.4 mg PO HS #30 cap 04/29/21 10/08/21 Rx Flutter Valve #1 ea 06/19/21 10/08/21 Rx fluticasone fur. 100 mcg-umeclid 1 inh INH QAM #60 ea 06/19/21 10/08/21 Rx 62.5 mcg-vilant 25 mcg inhalat.powder (Trelegy Ellipta) pregabalin 150 mg capsule (Lyrica) 150 mg PO TID #90 cap 08/06/21 10/08/21 Rx oxycodone-acetaminophen 5 mg-325 1 tab PO Q6H PRN #30 tab 08/08/21 10/08/21 Rx mg tablet (Percocet) furosemide 40 mg tablet 60 mg PO BID #270 tab 08/28/21 10/08/21 Rx albuterol sulfate 90 mcg/actuation 2 inh INH Q6H PRN 09/24/21 10/08/21 History breath activated powder inhaler carvedilol 3.125 mg tablet 3.125 mg PO BID 09/24/21 10/08/21 History ferrous sulfate 325 mg (65 mg 325 mg PO DAILY 09/24/21 10/08/21 History iron) tablet fluticasone fur. 100 mcg-umeclid 1 inh INHALATION DAILY 09/24/21 10/08/21 History 62.5 mcg-vilant 25 mcg inhalat.powder (Trelegy Ellipta) mirabegron 50 mg tablet,extended 50 mg PO DAILY 09/24/21 10/08/21 History release 24 hr (Myrbetriq) potassium chloride 10 mEq 10 meq PO BID 09/24/21 10/08/21 History capsule,extended release ropinirole 0.25 mg tablet 0.25 mg PO HS 09/24/21 10/08/21 History valacyclovir 500 mg tablet 500 mg PO DAILY 09/24/21 10/08/21 History lidocaine 5 % topical patch 1 patch TRANSDERMAL QAM #15 ea 09/27/21 10/08/21 Rx phenazopyridine 200 mg tablet 200 mg PO Q8H PRN #10 tab 09/27/21 10/08/21 Rx (Pyridium) potassium citrate 15 mEq (1,620 15 meq PO BID #180 tab 10/08/21 10/08/21 Rx mg) tablet,extended release Past Med/Surg History Medical History Anemia hx Asthma Chronic diastolic (congestive) heart failure follows w/[facility] (Dr. Otoole) Chronic sinusitis Chronic urinary tract infection Deep vein thrombosis RLE (15+ years ago), secondary immobility, treated w/AC Depression History of kidney stones Hyperlipidemia per records Hyperparathyroidism Incisional hernia Many, on abdomen from multiple surgeries/feeding tube MRSA (methicillin resistant staph aureus) culture positive Left wrist -- had 3 nasal swab and all negative - patient states thru [facility] Obesity Pancreatic insufficiency Peripheral neuropathy Port-A-Cath in place right side due to poor vascular access PUD (peptic ulcer disease) hx of and had feeding tube for 28 years and has been removed for 11 years PVC (premature ventricular contraction) Reactive hypoglycemia Sepsis 05/2020 @ [facility], urosepsis 2/2 obstructing renal stone, S/P cysto/stent and ESWL Short bowel syndrome Sleep apnea BIPAP, t/c nighttime O2 per pt Urinary leakage Vitamin D deficiency Wrist injury Scar tissue surrounding remote wrist ORIF several years ago resulting in intermittent inflammation per pt Surgical History History of appendectomy History of cardiac cath 08/2019 ([place]): essentially normal coronary arteries angiographically, + luminal irregularities. no stents History of cholecystectomy History of colonoscopy (~2015) History of cystoscopy with stone removal History of esophagogastroduodenoscopy (EGD) (~2015) History of gastrointestinal surgery multiple History of joint replacement Rt thumb History of knee replacement procedure of right knee History of lithotripsy History of open reduction and internal fixation (ORIF) procedure LUE History of partial gastrectomy History of prior ablation treatment Right LE in January 2020 and left LE 04/18/20 History of sinus surgery History of tonsillectomy and adenoidectomy History of total abdominal hysterectomy and bilateral salpingo-oophorectomy Status post laser lithotripsy of ureteral calculus (~07/26/20) [facility] Status post laser lithotripsy of ureteral calculus (~02/04/21) Family History Mother Family history of diabetes mellitus Sister Family history of diabetes mellitus Father Esophageal cancer Other Family history non-contributory No family history of adverse response to anesthesia Social History Smoking Status: Never smoker Second Hand Exposure: Yes (parents smoke); Hx Alcohol Use: Yes Alcohol type: beer Hx Substance Use: No Preferred Language: Nigerien Communication Ability: Effective Visual Impairment: No Limitations Ota Required: No Beliefs That Will Affect Care: None Current Living Situation: Alone Current Living Situation Comment: [facility] ([facility]) Feels Safe at Home: Yes Assistive Devices: Denture - Upper, Denture - Lower, Glasses and Walker Immunizations: This is a 71-year-old female with PMHx of chronic diastolic CHF, short-bowel syndrome with chronic malabsorption, LARRY on BiPAP, chronic pain syndrome, HLD, asthma, depression, osteopenia, 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 She presents today status post a fall where she lost her balance while reaching for clothes that were hanging on a shower rack, and fell backwards and hit her lower back on commode. Her pain currently is rated as a 10 out of 10. She is bruised on her back on exam. Patient normally ambulates well without assistance and lives at home independently participating in all ADLs. She has a life alert button and therefore pressed it whenever she was on the ground. She admits to feeling "woozy" after she fell. She has been taking her medications routinely including Lasix 60 mg twice daily and 80 mg as needed for fluid in her legs, denies any changes in her diet recently. Denies any abdominal complaints or recent nausea, vomiting or diarrhea which could explain electrolyte abnormalities. Currently she does have a headache, and also reports feeling like she has had a sinus infection for the past week. She has postnasal drip as well as sinus pressure, headache, and green nasal discharge. Denies any known Covid positive contacts. After reviewing the imaging it appears that she has sustained mildly displaced fracture of the left transverse process of L3 and possible acute displaced fractures of left transverse processes of L1 and L2. Also concerning are her electrolyte abnormalities which include sodium of 125 and a potassium of 1.7 on admission. She had been given potassium 40 M EQ p.o., started on NSS at 125 an hour and given 1 g of mag. Results & Data Results & Data ([facility] [place]) Vital Signs (Past 12 Hours) Vital Signs Temp Pulse Pulse Resp BP BP Pulse Ox 09/24/21 18:00 66 20 117/64 94 09/24/21 17:30 65 18 120/69 98 09/24/21 17:00 64 18 136/66 98 09/24/21 16:30 68 20 110/64 95 09/24/21 16:00 66 16 118/60 95 09/24/21 15:00 63 16 120/62 94 09/24/21 14:30 67 16 115/64 94 09/24/21 14:00 63 19 142/67 H 94 09/24/21 13:30 65 17 115/64 94 09/24/21 12:49 66 20 98 09/24/21 12:21 36.6 C 66 20 121/56 L 97 Laboratory Results 09/24/21 09/24/21 09/24/21 18:00 17:12 14:33 WBC RBC Hgb Hct MCV MCH MCHC RDW Std Deviation RDW Coeff of David Plt Count MPV Immature Gran % (Auto) Neut % (Auto) Lymph % (Auto) Gonzales % (Auto) Eos % (Auto) Baso % (Auto) Neut # (Auto) Lymph # (Auto) Gonzales # (Auto) Eos # (Auto) Baso # (Auto) Immature Gran # (Auto) PT 10.6 INR 1.0 Sodium Potassium Chloride Carbon Dioxide Anion Gap BUN Creatinine Est Cr Clr Drug Dosing Est GFR ( Amer) Est GFR (Non-Af Amer) BUN/Creatinine Ratio Glucose Osmolality 275 L Calcium Phosphorus Magnesium Total Bilirubin AST ALT Alkaline Phosphatase NT-Pro-B Natriuret Pep Total Protein Albumin Globulin Albumin/Globulin Ratio Urine Color Yellow Urine Appearance Clear Urine pH 7.5 Ur Specific [place] 1.017 Urine Protein Negative Urine Glucose (UA) Negative Urine Ketones Negative Urine Blood Negative Urine Nitrite Negative Urine Bilirubin Negative Urine Urobilinogen Negative Ur Leukocyte Esterase 2+ H Urine WBC (Auto) 5-10 H Urine RBC (Auto) 0-4 U Hyaline Cast (Auto) 1-5 U Epithel Cells (Auto) 20-30 H Urine Bacteria (Auto) Negative SARS-CoV-2, RNA, NAAT 09/24/21 09/24/21 09/24/21 13:52 13:52 13:05 WBC 6.89 RBC 4.57 Hgb 13.7 Hct 38.7 MCV 84.7 MCH 30.0 MCHC 35.4 RDW Std Deviation 40.1 RDW Coeff of David 12.9 Plt Count 173 MPV 10.3 Immature Gran % (Auto) 0.4 Neut % (Auto) 76.3 Lymph % (Auto) 13.8 Gonzales % (Auto) 9.0 Eos % (Auto) 0.4 Baso % (Auto) 0.1 Neut # (Auto) 5.25 Lymph # (Auto) 0.95 L Gonzales # (Auto) 0.62 H Eos # (Auto) 0.03 Baso # (Auto) 0.01 Immature Gran # (Auto) 0.03 H PT INR Sodium 125 L Potassium 1.7 L* Chloride 81 L Carbon Dioxide 34 H Anion Gap 10.0 BUN 29 H Creatinine 0.90 Est Cr Clr Drug Dosing 59.0 Est GFR ( Amer) 75.6 Est GFR (Non-Af Amer) 65.2 BUN/Creatinine Ratio 31.8 H Glucose 119 H Osmolality Calcium 7.8 L Phosphorus 2.9 Magnesium 1.9 Total Bilirubin 0.4 AST 27 ALT 26 Alkaline Phosphatase 162 H NT-Pro-B Natriuret Pep 156 Total Protein 6.9 Albumin 3.2 L Globulin 3.7 Albumin/Globulin Ratio 0.9 Urine Color Urine Appearance Urine pH Ur Specific [place] Urine Protein Urine Glucose (UA) Urine Ketones Urine Blood Urine Nitrite Urine Bilirubin Urine Urobilinogen Ur Leukocyte Esterase Urine WBC (Auto) Urine RBC (Auto) U Hyaline Cast (Auto) U Epithel Cells (Auto) Urine Bacteria (Auto) SARS-CoV-2, RNA, NAAT NEGATIVE Diagnostic Findings Abdomen/Pelvis CT 09/24/21 12:51 CT OF THE ABDOMEN AND PELVIS WITH CONTRAST CLINICAL HISTORY: back pain, contusion, fall COMPARISON STUDY: CT of the abdomen and pelvis March 22, 2021. Renal ultrasound July 01, 2021. TECHNIQUE: Following IV administration of Optiray, axial images of the abdomen and pelvis were obtained from the lung bases to the proximal femurs. Images were reviewed in the axial, sagittal, and coronal planes. IV contrast was administered without complication. Automated exposure control was utilized for the study. A dose lowering technique was utilized adhering to the principles of ALARA. FINDINGS: Ground glass opacities within the lower lungs are similar to chest CT July 18, 2021. No pneumatosis, free air or portal venous gas is present. There is no evidence for traumatic injury to the liver, spleen, adrenal glands, kidneys or pancreas. Mild biliary ductal dilatation is unchanged and likely related to cholecystectomy. The choledochojejunostomy is noted. Moderate right renal atrophy is noted. A 5 mm x 3 mm mid right ureteral calculus results in mild right hydronephrosis. Multiple bilateral renal calculi are noted. Calculus burden is decreased since CT of March 22, 2021. There are no left ureteral calculi. Marked laxity of the anterior abdominal wall with diastases is again noted. This is unchanged. There is no evidence for a bowel obstruction. The caliber and wall thickness of small and large bowel are normal. There is no free fluid. There is no hemoperitoneum. No acute pelvic fracture is noted. There is no acute hip fracture. Note is made of an acute mildly displaced fracture of the left transverse process of L3. There are possible acute nondisplaced fractures of the left transverse processes of L1 and L2. IMPRESSION: 1. No evidence for traumatic injury to the solid abdominal viscera. 2. Acute mildly displaced fracture of the left transverse process of L3. Possible acute displaced fractures of the left transverse processes of L1 and L2. 3. 5 mm x 3 mm mid right ureteral calculus. This results in mild right hydronephrosis. 4. Bilateral nephrolithiasis. ACT 112: Negative or not required by law. Electronically signed by: Mehrdad Torre M.D. 09/24/2021 4:12 PM Chest X-Ray 09/24/21 12:51 XR chest 1V portable CLINICAL HISTORY: Status post fall with pain. COMPARISON STUDY: 11/02/2020 TECHNIQUE: 1 view of the chest FINDINGS: Single frontal view of the chest demonstrates the cardiomediastinal silhouette to be within normal limits. A Port-A-Cath is in place. The lungs are clear of alveolar opacities. There is no evidence for pleural effusion. There is no evidence for vascular congestion. There is no acute osseous pathology. IMPRESSION: No acute cardiopulmonary disease. ACT 112: Negative or not required by law. Electronically signed by: Mitchell Moran M.D. 09/24/2021 1:[address] 09/24/21 12:51 CT lumbar spine w con CLINICAL HISTORY: Status post fall with pain COMPARISON STUDY: CT of the abdomen and pelvis from 03/22/2021 CT DOSE: 1252.84 mGy.cm TECHNIQUE: Standard CT of the Lumbar Spine was performed with 94 mL of Optiray 320 IV contrast which was given for earlier CT of the abdomen and pelvis. A dose lowering technique was utilized adhering to the principles of ALARA. FINDINGS: Bones: Bones are diffusely osteopenic. There is no evidence for an acute fracture or malalignment. Minimal old wedge deformities are present involving the inferior endplate of L2 and the superior endplate of L3 as seen on the old CT of the abdomen and pelvis. The heights of the remaining lumbar vertebral bodies are maintained. The vertebral bodies are in anatomic alignment. Is an omental is maintained of a hemangioma of the L3 vertebral body which is also unchanged. Disc spaces: The disc space heights are maintained. There is mild bulging of the annulus at L4-5 and L5-S1. There is vacuum disc phenomenon and calcification of the annulus at L5-S1. Facet joints: Mild hypertrophic facet joint disease is seen at the lower 2 disc space levels. There is asymmetric general change involving the right SI joint. Soft tissues: The prevertebral soft tissues are within normal limits. IMPRESSION: 1. Osteopenia with no acute osseous pathology. 2. Minimal old wedge deformities of L2 and L3. 3. 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 ACT 112: Negative or not required by law. Electronically signed by: Mitchell Moran M.D. 09/24/2021 4:22 PM Code Status & VTE Plan Code Status DNR/DNI -discussed with the patient at bedside Supervising Physician Co-Signing Physician Notes Pt was seen and examined. Agreed Janice WILCOX exam, assessment and plan. 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 Pt said that she lost balance after reaching to get her clothes. She said that she fell backward and hit her lower back on commode.CT abd/pelvis showed acute mildly displaced fracture of the left transverse process of L3. Possible acute displaced fractures of the left transverse processes of L1 and L2. 5 mm x 3 mm mid right ureteral calculus. This results in mild right hydronephrosis. CT lumbar spine showed Minimal old wedge deformities of L2 and L3. Lab showed Na 125 and K 1.7 on admission. Will continue pain control. Ortho consult. Electrolytes replaced. Continue monitor BMP. Fall precaution. Urology consult for the hydronephrosis. Will continue monitor closely. MD Jeniffer (1) Fall Encounter type: initial encounter Qualified Code(s): W19.XXXA - Unspecified fall, initial encounter
[2021-09-24] MEDS ORDERED: HYDROmorphone INJ 0.5 MG/0.5 ML SYR IV STA (18:39)
[2021-09-24] MEDS ORDERED: AZITHROMYCIN 250 MG TAB PO ONE (18:52)
[2021-09-24] MEDS: POTASSIUM CHLORIDE / WTR 10 MEQ/100 ML PLCT IV SCH ×2 (19:02→20:09)
[2021-09-24] MEDS: ACETAMINOPHEN 500 MG TAB PO SCH (20:09)
[2021-09-24] MEDS ORDERED: ACETAMINOPHEN 325 MG TAB PO PRN (20:56)
[2021-09-24] MEDS ORDERED: ALBUT/IPRATROP 3MG/0.5MG NEB 3 ML VIAL INH PRN (20:56)
[2021-09-24] MEDS ORDERED: LORazepam 0.5 MG TAB PO PRN (20:56)
[2021-09-24] MEDS ORDERED: MoRPHine SULFATE 4 MG/ML 1 ML CARP\\VIAL IV PRN (20:56)
[2021-09-24] MEDS ORDERED: MoRPHine SULFATE 2 MG/ML CARP IV PRN (20:56)
[2021-09-24] MEDS ORDERED: ONDANSETRON INJ 2 MG/ML 2 ML VIAL IV PRN (20:56)
[2021-09-24] MEDS ORDERED: ALBUTEROL HFA 8 GM INHALER INH PRN (20:56)
[2021-09-24] MEDS ORDERED: oxyCODONE/ACETAMINOPHEN 5mg/325mg TAB PO PRN (20:56)
[2021-09-24 21:51] LABS: Calcium 7.7 mg/dl (8.5-10.1); Creatinine Clr Calc Pharmacy 58.3 ml/min; Est GFR (African American) 74.6 ml/min; Est GFR (Non-African American) 64.4 ml/min; Potassium 2.3 mmol/L (3.5-5.1)
--- NOTE | 2021-09-24 22:00 | Communication Note ---
Date of Service: September 24, 2021 Repeat potassium 2.3 as per RN. AP Replace potassium Hold home diuretic until serum potassium within normal limits.
[2021-09-24] MEDS: carvediloL 3.125 MG TAB PO SCH (22:29)
[2021-09-24] MEDS: MONTELUKAST SODIUM 10 MG TABLET PO SCH (22:29)
[2021-09-24] MEDS: DOCUSATE SODIUM 100 MG CAP PO SCH (22:29)
[2021-09-24] MEDS: POTASSIUM CHLORIDE 10 MEQ TABCR PO SCH (22:30)
[2021-09-24] MEDS: PANTOprazole 40 MG TAB PO SCH (22:30)
[2021-09-24] MEDS: PYRIDOXINE HCL 50 MG TAB PO SCH (22:30)
[2021-09-24] MEDS: PREGABALIN 150 MG CAP PO SCH (22:30)
[2021-09-24] MEDS: TAMSULOSIN HCL 0.4 MG CAP PO SCH (22:31)
[2021-09-24] MEDS: NSS + 20MEQ KCL 20 MEQ/1,000 ML BAG IV SCH (22:31)
[2021-09-24] MEDS: risperiDONE 2 MG TABLET PO SCH (22:31)
[2021-09-24] MEDS: HEPARIN SOD 5,000 UNIT/0.5 ML VIAL SQ SCH (22:31)
[2021-09-24] MEDS: rOPINIRole HCL 0.25 MG TABLET PO SCH (22:31)
[2021-09-25 01:28] LABS: Est GFR (African American) 71.7 ml/min; Est GFR (Non-African American) 61.9 ml/min; Potassium 2.8 mmol/L (3.5-5.1)
[2021-09-25 01:29] LABS: BUN Creatinine Ratio 28.7 (10-20); Calcium 8.1 mg/dl (8.5-10.1); Creatinine Clr Calc Pharmacy 56.5 ml/min
[2021-09-25] MEDS ORDERED: POTASSIUM CHLORIDE CRTAB 20 MEQ TABCR PO ONE (02:00)
[2021-09-25] MEDS: ACETAMINOPHEN 500 MG TAB PO SCH ×3 (03:55→18:32)
[2021-09-25] MEDS: HEPARIN SOD 5,000 UNIT/0.5 ML VIAL SQ SCH ×3 (05:05→20:59)
[2021-09-25 05:48] LABS: Hematocrit (blood only) 38.9 % (37-47); Hemoglobin 13.3 g/dL (12.0-16.0); Mean Corpuscular Hemoglobin 29.7 pg (25-34); Mean Corpuscular Hgb Conc 34.2 g/dL (32-36); Mean Corpuscular Volume 86.8 fL (80-100); Mean Platelet Volume 10.1 fL (7.4-10.4); Platelet Count 175 K/uL (130-400); RDW Coefficient of Variation 13.2 % (11.5-14.5); Red Blood Count 4.48 M/uL (4.2-5.4); White Blood Count 6.42 K/uL (4.8-10.8)
[2021-09-25] MEDS: NSS + 20MEQ KCL 20 MEQ/1,000 ML BAG IV SCH ×2 (06:04→14:18)
[2021-09-25 06:18] LABS: BUN Creatinine Ratio 30.2 (10-20); Calcium 8.3 mg/dl (8.5-10.1); Creatinine Clr Calc Pharmacy 58.3 ml/min; Est GFR (African American) 74.6 ml/min; Est GFR (Non-African American) 64.4 ml/min; Potassium 3.2 mmol/L (3.5-5.1)
[2021-09-25 06:21] LABS: Albumin Globulin Ratio 0.9 (0.9-2); Bilirubin,Total 0.5 mg/dl (0.2-1); Globulin 3.4 gm/dl (2.5-4.0); Total Protein 6.4 gm/dl (6.4-8.2)
[2021-09-25] MEDS ORDERED: POTASSIUM CHLORIDE CRTAB 20 MEQ TABCR PO STA ×2 (07:39→17:50)
--- NOTE | 2021-09-25 07:40 | Hospitalist Progress Note ---
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 Lasix, was taking 60 mg twice daily and an extra 80 mg daily for diastolic CHF and lower extremity edema - denies diarrhea (but hx of short bowel syndrome) - Nephrology also consulted (3) Hyponatremia: Plan: -125 on admission - likely dehydrated secondary to Lasix use, appears hypovolemic on exam -Placement with IV fluids, holding Lasix -Na improved this AM - nephrology consulted (4) Nephrolithiasis: Plan: Obstructing ureteral stone, mild hydronephrosis -History of such, patient states chronic, but has past six small kidney stones within the past 2 weeks -she is having right-sided flank pain -CT abdomen pelvis shows mild right hydronephrosis, urology consulted -Pain control -IV fluids as above - drain urine -Encourage p.o. intake - Denies hematuria, UA w/o nitrites, positive leukoesterase, negative bacteria (5) Sinus infection: Plan: - started on PO azithromycin on admission (6) Chronic diastolic (congestive) heart failure: Plan: - Continue po meds except for lasix DVT ppx: - teds, scds CODE: DNR/DNI Dispo: From home, likely to remain in the hospital x 1-2 days Admission and Anticipated Discharge Date Admission Date: September 24, 2021 Subjective Patient seen in follow-up of fall, back pain, flank pain, renal stone, lumbar fracture, electrolyte abnormalities Currently patient sitting up in a chair, she is teary, reports back pain and not feeling well for the past several days Reports having nausea vomiting several days ago Denies diarrhea, says she has about 1 bowel movement a day Currently denies any fevers, chills, chest pain, shortness of breath Seen by urology earlier Review of Systems Review of Systems: All systems reviewed & are unremarkable except as noted in Subjective Physical Exam Physical Exam: GENERAL: WD/WN F in NAD, but tearful HENT: Normocephalic, atraumatic EYES: Normal conjunctiva. Sclera non-icteric. NECK: Supple. RESPIRATORY: Clear to auscultation. CARDIAC: Regular rate, normal rhythm. + systolic murmur. ABDOMEN: Soft, non-distended. No tenderness to palpation. No guarding. MUSCULOSKELETAL: + lumbar spinal and lumbar paraspinal muscle tenderness, + ecchymosis noted. : + CVA tenderness (right) EXTREMITIES: moves extremities NEURO: Alert oriented, answers appropriately, no facial asymmetry, extremities, tearful during interview SKIN: warm, dry Results & Data Results & Data ([facility]) Vital Signs (Past 12 Hours) Vital Signs Temp Pulse Resp BP Pulse Ox 09/25/21 07:29 36.6 C 68 18 144/78 H 97 09/25/21 03:56 76 18 100/47 L 98 09/25/21 02:26 63 20 94/47 L 93 09/24/21 23:41 63 20 116/65 95 09/24/21 22:59 66 20 115/59 L 96 09/24/21 21:17 61 20 122/60 94 09/24/21 20:13 67 20 112/59 L 96 09/24/21 19:43 64 20 84/51 L 97 Laboratory Results 09/25/21 09/25/21 09/25/21 Range/Units 05:29 05:29 05:29 WBC 6.42 (4.8-10.8) K/uL RBC 4.48 (4.2-5.4) M/uL Hgb 13.3 (12.0-16.0) g/dL Hct 38.9 (37-47) % MCV 86.8 (80-100) fL MCH 29.7 (25-34) pg MCHC 34.2 (32-36) g/dL RDW Std Deviation 42.0 (36.4-46.3) fL RDW Coeff of David 13.2 (11.5-14.5) % Plt Count 175 (130-400) K/uL MPV 10.1 (7.4-10.4) fL Immature Gran % (Auto) % Neut % (Auto) % Lymph % (Auto) % Hayes % (Auto) % Eos % (Auto) % Baso % (Auto) % Neut # (Auto) (1.4-6.5) K/uL Lymph # (Auto) (1.2-3.4) K/uL Hayes # (Auto) (0.11-0.59) K/uL Eos # (Auto) (0-0.5) K/uL Baso # (Auto) (0-0.2) K/uL Immature Gran # (Auto) (0.00-0.02) K/uL PT (9.0-12.0) Seconds INR (0.9-1.1) Sodium 132 L (136-145) mmol/L Potassium 3.2 L (3.5-5.1) mmol/L Chloride 92 L (98-107) mmol/L Carbon Dioxide 34 H (21-32) mmol/L Anion Gap 6.0 (3-11) BUN 27 H (7-18) mg/dl Creatinine 0.91 (0.6-1.2) mg/dl Est Cr Clr Drug Dosing 58.3 ml/min Est GFR ( Amer) 74.6 ml/min Est GFR (Non-Af Amer) 64.4 ml/min BUN/Creatinine Ratio 30.2 H (10-20) Glucose 112 H (70-99) mg/dl Osmolality (280-300) mOsm/kg Calcium 8.3 L (8.5-10.1) mg/dl Phosphorus 3.0 (2.5-4.9) mg/dl Magnesium 2.4 (1.8-2.4) mg/dl Total Bilirubin 0.5 (0.2-1) mg/dl AST 23 (15-37) U/L ALT 24 (12-78) Alkaline Phosphatase 145 H (45-117) U/L NT-Pro-B Natriuret Pep (0-900) pg/ml Total Protein 6.4 (6.4-8.2) gm/dl Albumin 3.0 L (3.4-5.0) gm/dl Globulin 3.4 (2.5-4.0) gm/dl Albumin/Globulin Ratio 0.9 (0.9-2) Urine Color Urine Appearance (Clear) Urine pH (4.5-7.5) Ur Specific [place] (1.000-1.030) Urine Protein (Negative) Urine Glucose (UA) (Negative) Urine Ketones (Negative) Urine Blood (Negative) Urine Nitrite (Negative) Urine Bilirubin (Negative) Urine Urobilinogen (Negative) Ur Leukocyte Esterase (Negative) Urine WBC (Auto) (0-5) /hpf Urine RBC (Auto) (0-4) /hpf U Hyaline Cast (Auto) (0-5) /lpf U Epithel Cells (Auto) (0-5) /lpf Urine Bacteria (Auto) (Negative) SARS-CoV-2, RNA, NAAT (NEGATIVE) 09/25/21 09/24/21 09/24/21 Range/Units 00:27 21:10 18:00 WBC (4.8-10.8) K/uL RBC (4.2-5.4) M/uL Hgb (12.0-16.0) g/dL Hct (37-47) % MCV (80-100) fL MCH (25-34) pg MCHC (32-36) g/dL RDW Std Deviation (36.4-46.3) fL RDW Coeff of David (11.5-14.5) % Plt Count (130-400) K/uL MPV (7.4-10.4) fL Immature Gran % (Auto) % Neut % (Auto) % Lymph % (Auto) % Hayes % (Auto) % Eos % (Auto) % Baso % (Auto) % Neut # (Auto) (1.4-6.5) K/uL Lymph # (Auto) (1.2-3.4) K/uL Hayes # (Auto) (0.11-0.59) K/uL Eos # (Auto) (0-0.5) K/uL Baso # (Auto) (0-0.2) K/uL Immature Gran # (Auto) (0.00-0.02) K/uL PT (9.0-12.0) Seconds INR (0.9-1.1) Sodium 129 L 127 L (136-145) mmol/L Potassium 2.8 L D 2.3 L* D (3.5-5.1) mmol/L Chloride 86 L 82 L (98-107) mmol/L Carbon Dioxide 36 H 37 H (21-32) mmol/L Anion Gap 7.0 8.0 (3-11) BUN 27 H 26 H (7-18) mg/dl Creatinine 0.94 0.91 (0.6-1.2) mg/dl Est Cr Clr Drug Dosing 56.5 58.3 ml/min Est GFR ( Amer) 71.7 74.6 ml/min Est GFR (Non-Af Amer) 61.9 64.4 ml/min BUN/Creatinine Ratio 28.7 H 29.0 H (10-20) Glucose 110 H 110 H (70-99) mg/dl Osmolality 275 L (280-300) mOsm/kg Calcium 8.1 L 7.7 L (8.5-10.1) mg/dl Phosphorus (2.5-4.9) mg/dl Magnesium (1.8-2.4) mg/dl Total Bilirubin (0.2-1) mg/dl AST (15-37) U/L ALT (12-78) Alkaline Phosphatase (45-117) U/L NT-Pro-B Natriuret Pep (0-900) pg/ml Total Protein (6.4-8.2) gm/dl Albumin (3.4-5.0) gm/dl Globulin (2.5-4.0) gm/dl Albumin/Globulin Ratio (0.9-2) Urine Color Urine Appearance (Clear) Urine pH (4.5-7.5) Ur Specific [place] (1.000-1.030) Urine Protein (Negative) Urine Glucose (UA) (Negative) Urine Ketones (Negative) Urine Blood (Negative) Urine Nitrite (Negative) Urine Bilirubin (Negative) Urine Urobilinogen (Negative) Ur Leukocyte Esterase (Negative) Urine WBC (Auto) (0-5) /hpf Urine RBC (Auto) (0-4) /hpf U Hyaline Cast (Auto) (0-5) /lpf U Epithel Cells (Auto) (0-5) /lpf Urine Bacteria (Auto) (Negative) SARS-CoV-2, RNA, NAAT (NEGATIVE) 09/24/21 09/24/21 09/24/21 Range/Units 17:12 14:33 13:52 WBC (4.8-10.8) K/uL RBC (4.2-5.4) M/uL Hgb (12.0-16.0) g/dL Hct (37-47) % MCV (80-100) fL MCH (25-34) pg MCHC (32-36) g/dL RDW Std Deviation (36.4-46.3) fL RDW Coeff of David (11.5-14.5) % Plt Count (130-400) K/uL MPV (7.4-10.4) fL Immature Gran % (Auto) % Neut % (Auto) % Lymph % (Auto) % Hayes % (Auto) % Eos % (Auto) % Baso % (Auto) % Neut # (Auto) (1.4-6.5) K/uL Lymph # (Auto) (1.2-3.4) K/uL Hayes # (Auto) (0.11-0.59) K/uL Eos # (Auto) (0-0.5) K/uL Baso # (Auto) (0-0.2) K/uL Immature Gran # (Auto) (0.00-0.02) K/uL PT 10.6 (9.0-12.0) Seconds INR 1.0 (0.9-1.1) Sodium 125 L (136-145) mmol/L Potassium 1.7 L* (3.5-5.1) mmol/L Chloride 81 L (98-107) mmol/L Carbon Dioxide 34 H (21-32) mmol/L Anion Gap 10.0 (3-11) BUN 29 H (7-18) mg/dl Creatinine 0.90 (0.6-1.2) mg/dl Est Cr Clr Drug Dosing 59.0 ml/min Est GFR ( Amer) 75.6 ml/min Est GFR (Non-Af Amer) 65.2 ml/min BUN/Creatinine Ratio 31.8 H (10-20) Glucose 119 H (70-99) mg/dl Osmolality (280-300) mOsm/kg Calcium 7.8 L (8.5-10.1) mg/dl Phosphorus 2.9 (2.5-4.9) mg/dl Magnesium 1.9 (1.8-2.4) mg/dl Total Bilirubin 0.4 (0.2-1) mg/dl AST 27 (15-37) U/L ALT 26 (12-78) Alkaline Phosphatase 162 H (45-117) U/L NT-Pro-B Natriuret Pep 156 (0-900) pg/ml Total Protein 6.9 (6.4-8.2) gm/dl Albumin 3.2 L (3.4-5.0) gm/dl Globulin 3.7 (2.5-4.0) gm/dl Albumin/Globulin Ratio 0.9 (0.9-2) Urine Color Yellow Urine Appearance Clear (Clear) Urine pH 7.5 (4.5-7.5) Ur Specific [place] 1.017 (1.000-1.030) Urine Protein Negative (Negative) Urine Glucose (UA) Negative (Negative) Urine Ketones Negative (Negative) Urine Blood Negative (Negative) Urine Nitrite Negative (Negative) Urine Bilirubin Negative (Negative) Urine Urobilinogen Negative (Negative) Ur Leukocyte Esterase 2+ H (Negative) Urine WBC (Auto) 5-10 H (0-5) /hpf Urine RBC (Auto) 0-4 (0-4) /hpf U Hyaline Cast (Auto) 1-5 (0-5) /lpf U Epithel Cells (Auto) 20-30 H (0-5) /lpf Urine Bacteria (Auto) Negative (Negative) SARS-CoV-2, RNA, NAAT (NEGATIVE) 09/24/21 09/24/21 Range/Units 13:52 13:05 WBC 6.89 (4.8-10.8) K/uL RBC 4.57 (4.2-5.4) M/uL Hgb 13.7 (12.0-16.0) g/dL Hct 38.7 (37-47) % MCV 84.7 (80-100) fL MCH 30.0 (25-34) pg MCHC 35.4 (32-36) g/dL RDW Std Deviation 40.1 (36.4-46.3) fL RDW Coeff of David 12.9 (11.5-14.5) % Plt Count 173 (130-400) K/uL MPV 10.3 (7.4-10.4) fL Immature Gran % (Auto) 0.4 % Neut % (Auto) 76.3 % Lymph % (Auto) 13.8 % Hayes % (Auto) 9.0 % Eos % (Auto) 0.4 % Baso % (Auto) 0.1 % Neut # (Auto) 5.25 (1.4-6.5) K/uL Lymph # (Auto) 0.95 L (1.2-3.4) K/uL Hayes # (Auto) 0.62 H (0.11-0.59) K/uL Eos # (Auto) 0.03 (0-0.5) K/uL Baso # (Auto) 0.01 (0-0.2) K/uL Immature Gran # (Auto) 0.03 H (0.00-0.02) K/uL PT (9.0-12.0) Seconds INR (0.9-1.1) Sodium (136-145) mmol/L Potassium (3.5-5.1) mmol/L Chloride (98-107) mmol/L Carbon Dioxide (21-32) mmol/L Anion Gap (3-11) BUN (7-18) mg/dl Creatinine (0.6-1.2) mg/dl Est Cr Clr Drug Dosing ml/min Est GFR ( Amer) ml/min Est GFR (Non-Af Amer) ml/min BUN/Creatinine Ratio (10-20) Glucose (70-99) mg/dl Osmolality (280-300) mOsm/kg Calcium (8.5-10.1) mg/dl Phosphorus (2.5-4.9) mg/dl Magnesium (1.8-2.4) mg/dl Total Bilirubin (0.2-1) mg/dl AST (15-37) U/L ALT (12-78) Alkaline Phosphatase (45-117) U/L NT-Pro-B Natriuret Pep (0-900) pg/ml Total Protein (6.4-8.2) gm/dl Albumin (3.4-5.0) gm/dl Globulin (2.5-4.0) gm/dl Albumin/Globulin Ratio (0.9-2) Urine Color Urine Appearance (Clear) Urine pH (4.5-7.5) Ur Specific [place] (1.000-1.030) Urine Protein (Negative) Urine Glucose (UA) (Negative) Urine Ketones (Negative) Urine Blood (Negative) Urine Nitrite (Negative) Urine Bilirubin (Negative) Urine Urobilinogen (Negative) Ur Leukocyte Esterase (Negative) Urine WBC (Auto) (0-5) /hpf Urine RBC (Auto) (0-4) /hpf U Hyaline Cast (Auto) (0-5) /lpf U Epithel Cells (Auto) (0-5) /lpf Urine Bacteria (Auto) (Negative) SARS-CoV-2, RNA, NAAT NEGATIVE (NEGATIVE) Medications Administered Current Inpatient Medications Acetaminophen (Acetaminophen 500 Mg Tab) 1,000 mg PO Q8H CATE Stop: 10/24/21 18:44 Last Admin: 09/25/21 03:55 Dose: 1,000 mg Documented by: Acetaminophen (Acetaminophen 325 Mg Tab) 650 mg PO Q4H PRN PRN Reason: Moderate Pain Stop: 10/24/21 20:55 Albuterol (Albuterol Hfa 8 Gm Inhaler) 2 puffs INH Q6H PRN PRN Reason: Shortness Of Breath Or Wheezin Stop: 10/24/21 20:55 Albuterol (Albut/Ipratrop 3mg/0.5mg Neb 3 Ml Vial) 3 ml INH Q4H PRN; Protocol PRN Reason: Shortness Of Breath Or Wheezing Stop: 10/24/21 20:55 Lipase/Protease/Amylase (Pancreaze (Lipase 16,800u) Cap) 5 cap PO TIDM CATE Stop: 10/25/21 07:59 Azithromycin (Azithromycin 250 Mg Tab) 250 mg PO QAM [facility] Stop: 09/28/21 09:01 Carvedilol (Carvedilol 3.125 Mg Tab) 3.125 mg PO BID CATE Stop: 10/24/21 20:59 Last Admin: 09/24/21 22:29 Dose: 3.125 mg Documented by: Cyanocobalamin (Cyanocobalamin 500 Mcg Tablet (Vitamin B-12)) 1,000 mcg PO QAM CATE Stop: 10/25/21 08:59 Docusate Sodium (Docusate Sodium 100 Mg Cap) 100 mg PO BID CATE Stop: 10/24/21 20:59 Last Admin: 09/24/21 22:29 Dose: 100 mg Documented by: Ferrous Sulfate (Ferrous Sulfate 325 Mg Tab) 325 mg PO DAILY [facility] Stop: 10/25/21 08:59 Fluticasone Furoate (Fluticasone Furoate 100mcg 14 Puffs/Inhaler) 1 puffs INH QAM CATE Stop: 10/25/21 08:59 Heparin Sodium (Porcine) (Heparin Sod 5,000 Unit/0.5 Ml Vial) 5,000 units SQ Q8 [facility] Stop: 10/24/21 21:59 Last Admin: 09/25/21 05:05 Dose: 5,000 units Documented by: Potassium Chloride/Sodium Chloride (Normal Saline W/20 Meq Kcl) 20 meq in 1,000 mls @ 125 mls/hr IV .Q8H [facility] Stop: 09/25/21 21:44 Last Admin: 09/25/21 06:04 Dose: 125 mls/hr Documented by: Lorazepam (Lorazepam 0.5 Mg Tab) 0.5 mg PO TID PRN PRN Reason: Anxiety Stop: 10/24/21 20:55 Mirabegron (Mirabegron Er 25 Mg Tab) 50 mg PO DAILY [facility] Stop: 10/25/21 08:59 Miscellaneous (Colesevelam [Welchol]: Order Awaiting Action) 1 ea N/A QS [facility] Stop: 10/25/21 07:59 Montelukast Sodium (Montelukast Sodium 10 Mg Tablet) 10 mg PO HS [facility] Stop: 10/24/21 20:59 Last Admin: 09/24/21 22:29 Dose: 10 mg Documented by: Morphine Sulfate (Morphine Sulfate 2 Mg/Ml Carp) 2 mg IV Q2H PRN; Protocol PRN Reason: Pain (1,2,3,4,5) Stop: 10/08/21 20:55 Morphine Sulfate (Morphine Sulfate 4 Mg/Ml 1 Ml Carp\Vial) 4 mg IV Q2H PRN; Protocol PRN Reason: Pain (6,7,8,9,10) Stop: 10/08/21 20:55 Ondansetron HCl (Ondansetron Inj 2 Mg/Ml 2 Ml Vial) 4 mg IV Q4H PRN PRN Reason: Nausea And Vomiting Stop: 10/24/21 20:55 Oxycodone/Acetaminophen (Oxycodone/Acetaminophen 5mg/325mg Tab) 1 tab PO Q6H PRN PRN Reason: pain Stop: 10/08/21 20:55 Pantoprazole Sodium (Pantoprazole 40 Mg Tab) 40 mg PO BID [facility] Stop: 10/24/21 20:59 Last Admin: 09/24/21 22:30 Dose: 40 mg Documented by: Potassium Chloride (Potassium Chloride 10 Meq Tabcr) 10 meq PO BID [facility] Stop: 10/24/21 20:59 Last Admin: 09/24/21 22:30 Dose: 10 meq Documented by: Potassium Chloride (Potassium Chloride Crtab 20 Meq Tabcr) 20 meq PO NOW STA Stop: 09/25/21 07:40 Pregabalin (Pregabalin 150 Mg Cap) 150 mg PO TID CATE Stop: 10/24/21 20:59 Last Admin: 09/24/21 22:30 Dose: 150 mg Documented by: Pyridoxine HCl (Pyridoxine Hcl 50 Mg Tab) 100 mg PO BID CATE Stop: 10/24/21 20:59 Last Admin: 09/24/21 22:30 Dose: 100 mg Documented by: Risperidone (Risperidone 2 Mg Tablet) 2 mg PO HS [facility] Stop: 10/24/21 20:59 Last Admin: 09/24/21 22:31 Dose: 2 mg Documented by: Ropinirole HCl (Ropinirole Hcl 0.25 Mg Tablet) 0.25 mg PO HS CATE Stop: 10/24/21 20:59 Last Admin: 09/24/21 22:31 Dose: 0.25 mg Documented by: Tamsulosin HCl (Tamsulosin Hcl 0.4 Mg Cap) 0.4 mg PO HS CATE Stop: 10/24/21 20:59 Last Admin: 09/24/21 22:31 Dose: 0.4 mg Documented by: Umeclidinium/Vilanterol (Umeclidinium/Vilanterol 62.5/25mcg 7 Puffs/Inhaler) 1 puffs INH QAM [facility] Stop: 10/25/21 08:59 Valacyclovir HCl (Valacyclovir Hcl 500 Mg Tablet) 500 mg PO DAILY [facility] Stop: 10/25/21 08:59 (1) Fall Encounter type: initial encounter Qualified Code(s): W19.XXXA - Unspecified fall, initial encounter
[2021-09-25 08:02] LABS: Magnesium 2.4 mg/dl (1.8-2.4)
--- NOTE | 2021-09-25 08:09 | Urology Consultation ---
Date of Consultation September 25, 2021 Assessment & Plan (1) Hydronephrosis due to obstruction of ureter: (2) Nephrolithiasis: (3) Fall: 71yo F with multiple chronic medical issues admitted s/p fall with left transverse processe fracture, electrolyte abnormalities, and incidental finding on CT of a 5 x 3mm obstructing right ureteral stone. - Plan of care reviewed with Dr. Fernandez, on-call urologist. - CTAP reviewed and notable for an obstructing right ureteral stone with hydronephrosis as well as multiple b/l renal calculi. - Afebrile, non-toxic appearing. - Labs reviewed - Wbc 6.42, Creatinine 0.91. - UA on admission not overly suggestive of infection. - Incontinent of urine - Continue to monitor, bladder scan as needed. - No acute intervention planned for today as she has not been NPO and is currently stable from a standpoint. - We will plan to make NPO at midnight and reassess in the AM for potential procedure if she is still having right flank pain. - We discussed possible stent placement if she continues to have significant right flank pain, however she understands that her pain is likely multifactorial given her recent fall. - If her pain is controlled and she remains stable from a perspective, it would be reasonable to follow-up with urology as an outpatient to arrange definitive stone treatment. - Will also await orthopedic recommendations given her left transverse process fracture. - Continue supportive care, pain management, and close monitoring. - Please consult our service urgently if patient develops fever >101F, intractable pain or nausea, as this may necessitate urgent surgical intervention. - Will continue to follow. Supervising Physician Co-Signing Physician Notes Discussed patient with ESTEVAN. Agree with plan. No acute intervention necessary for stone. Additionally, patient is not appropriately n.p.o. Can reevaluate tomorrow morning and if pain persists, can discuss stent placement. Will need to get clearance from orthopedics first from a surgical positioning standpoint prior to scheduling any stent placement. History of Present Illness Reason for Consultation: Ureteral stone; Hydronephrosis Requesting Physician: Dr. 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 CT of the lumbar spine and abdomen pelvis were performed. Imaging revealed an acute mildly displaced fracture of the left transverse process of L3 and possible acute displaced fractures of the left transverse process of L2 1 and 2. Incidental note was made of right-sided mid ureteral calculus measuring 5 x 3 mm with mild right-sided hydronephrosis. Given the patient's electrolyte abnormalities she was admitted for further management. Urology consulted for obstructing ureteral stone. Chart review: Afebrile Wbc 6.42 Hgb 13.3 Cr 0.91 Urinalysis on admission with 2+ Leukocytes, 5-10WBC, 20-30Epis, negative bacteria, negative nitrite. On Myrbetriq and Flomax. CTAP IMPRESSION: 1. No evidence for traumatic injury to the solid abdominal viscera. 2. Acute mildly displaced fracture of the left transverse process of L3. Possible acute displaced fractures of the left transverse processes of L1 and L2 . 3. 5 mm x 3 mm mid right ureteral calculus. This results in mild right hydronephrosis. 4. Bilateral nephrolithiasis. Patient is known to the urology service. Hx of significant stone burden requiring treatment. She underwent right URS-LL with right stent exchange and basket extraction of right renal stone on 04/29/2021. Pt examined at bedside in the ED. Awake, resting in bed on arrival. Tearful during exam. No acute distress. At present, she reports bilateral flank and back pain, rates pain 8/10. Pt states she has had persistent right sided flank pain, however the pain has worsened recently from her baseline. She states "I am tired of being in pain." She reports passing 6 small stones in the past 2 weeks. She denies fevers or chills. She had breakfast. No nausea or vomiting. Denies hematuria and dysuria. She is mostly incontinent of urine. She reports urinary urgency and leakage/incontinence at baseline, for which she wears a depends at home. Denies constipation. Reports she tolerated a ureteral stent in the past with minimal bother. Offered no additional complaints at time of exam. Allergies Allergy/AdvReac Type Severity Reaction Status Date / Time bethanechol Allergy Intermediate RASH, Verified 09/24/21 14:56 "FEELS FUNNY" ertapenem Allergy Intermediate RASH Verified 09/24/21 14:56 Sulfa (Sulfonamide Allergy Intermediate Generalized Verified 09/24/21 14:56 Antibiotics) Rash Cephalosporins Allergy Mild RASH, Verified 09/24/21 14:56 DIARRHEA levofloxacin Allergy Mild RASH,TURNED Verified 09/24/21 14:56 RED promethazine Allergy Mild UNKNOWN Verified 09/24/21 14:56 tobramycin Allergy Mild UNKNOWN Verified 09/24/21 14:56 clindamycin Allergy Unknown Unknown Verified 09/24/21 14:56 dipyridamole Allergy Unknown UNKNOWN Verified 09/24/21 14:56 droperidol Allergy Unknown Unknown Verified 09/24/21 14:56 aspirin AdvReac Intermediate BLEEDING Verified 09/24/21 14:56 nitrofurantoin AdvReac Intermediate Vomiting Verified 09/24/21 14:56 [From Macrobid] tedizolid AdvReac Intermediate GI SYMPTOMS Verified 09/24/21 14:56 bupropion AdvReac Mild NERVOUS Verified 09/24/21 14:56 REACTION cephalexin AdvReac Mild GI SYMPTOMS Verified 09/24/21 14:56 morphine AdvReac Mild NERVOUS Verified 09/24/21 14:56 REACTION TO IT prochlorperazine AdvReac Mild NERVOUS Verified 09/24/21 14:56 REACTION Home Medications Medication Instructions Recorded Confirmed Type colesevelam 625 mg tablet (WelChol) 625 mg PO TID tab 06/17/18 09/24/21 History lorazepam 0.5 mg tablet (Ativan) 0.5 mg PO TID PRN tab 06/17/18 09/24/21 History montelukast 10 mg tablet 10 mg PO HS 06/17/18 09/24/21 History (Singulair) ipratropium 0.5 mg-albuterol 3 mg 3 ml INHALATION Q4H PRN 05/05/19 09/24/21 History (2.5 mg base)/3 mL nebulization soln [id number] 4 cap PO TID 05/05/19 09/24/21 History 24,000-76,000-120,000 unit capsule,delayed rel (Creon) pyridoxine (vitamin B6) 100 mg 100 mg PO BID 05/05/19 09/24/21 History tablet (Vitamin B-6) omeprazole magnesium 20 mg 20 mg PO BID tab 05/17/19 09/24/21 History tablet,delayed release (Prilosec OTC) BiPap Machine #1 ea 07/24/20 09/24/21 Rx docusate sodium 100 mg capsule 100 mg PO BID #60 cap 09/04/20 09/24/21 Rx (Colace) mecobalamin (vitamin B12) 1,000 1,000 mcg PO QAM 01/21/21 09/24/21 History mcg disintegrating tablet,sublingual risperidone 2 mg tablet 2 mg PO HS 02/27/21 09/24/21 History tamsulosin 0.4 mg capsule 0.4 mg PO HS #30 cap 04/29/21 09/24/21 Rx Flutter Valve #1 ea 06/19/21 09/24/21 Rx fluticasone fur. 100 mcg-umeclid 1 inh INH QAM #60 ea 06/19/21 09/24/21 Rx 62.5 mcg-vilant 25 mcg inhalat.powder (Trelegy Ellipta) pregabalin 150 mg capsule (Lyrica) 150 mg PO TID #90 cap 08/06/21 09/24/21 Rx oxycodone-acetaminophen 5 mg-325 1 tab PO Q6H PRN #30 tab 08/08/21 09/24/21 Rx mg tablet (Percocet) furosemide 40 mg tablet 60 mg PO BID #270 tab 08/28/21 09/24/21 Rx albuterol sulfate 90 mcg/actuation 2 inh INH Q6H PRN 09/24/21 09/24/21 History breath activated powder inhaler carvedilol 3.125 mg tablet 3.125 mg PO BID 09/24/21 09/24/21 History ferrous sulfate 325 mg (65 mg 325 mg PO DAILY 09/24/21 09/24/21 History iron) tablet fluticasone fur. 100 mcg-umeclid 1 inh INHALATION DAILY 09/24/21 09/24/21 History 62.5 mcg-vilant 25 mcg inhalat.powder (Trelegy Ellipta) metolazone 2.5 mg tablet 2.5 mg PO DAILY 09/24/21 09/24/21 History mirabegron 50 mg tablet,extended 50 mg PO DAILY 09/24/21 09/24/21 History release 24 hr (Myrbetriq) potassium chloride 10 mEq 10 meq PO BID 09/24/21 09/24/21 History capsule,extended release ropinirole 0.25 mg tablet 0.25 mg PO HS 09/24/21 09/24/21 History valacyclovir 500 mg tablet 500 mg PO DAILY 09/24/21 09/24/21 History Patient History Medical History Anemia hx Asthma Chronic diastolic (congestive) heart failure follows w/[facility] (Dr. Otooel) Chronic sinusitis Chronic urinary tract infection Deep vein thrombosis RLE (15+ years ago), secondary immobility, treated w/AC Depression History of kidney stones Hyperlipidemia per records Hyperparathyroidism Incisional hernia Many, on abdomen from multiple surgeries/feeding tube MRSA (methicillin resistant staph aureus) culture positive Left wrist -- had 3 nasal swab and all negative - patient states thru [facility] Obesity Pancreatic insufficiency Peripheral neuropathy Port-A-Cath in place right side due to poor vascular access PUD (peptic ulcer disease) hx of and had feeding tube for 28 years and has been removed for 11 years PVC (premature ventricular contraction) Reactive hypoglycemia Sepsis 05/2020 @ [facility], urosepsis 2/2 obstructing renal stone, S/P cysto/stent and ESWL Short bowel syndrome Sleep apnea BIPAP, t/c nighttime O2 per pt Urinary leakage Vitamin D deficiency Wrist injury Scar tissue surrounding remote wrist ORIF several years ago resulting in intermittent inflammation per pt Surgical History History of appendectomy History of cardiac cath 08/2019 (MD): essentially normal coronary arteries angiographically, + luminal irregularities. no stents History of cholecystectomy History of colonoscopy (~2015) History of cystoscopy with stone removal History of esophagogastroduodenoscopy (EGD) (~2015) History of gastrointestinal surgery multiple History of joint replacement Rt thumb History of knee replacement procedure of right knee History of lithotripsy History of open reduction and internal fixation (ORIF) procedure LUE History of partial gastrectomy History of prior ablation treatment Right LE in January 2020 and left LE 04/18/20 History of sinus surgery History of tonsillectomy and adenoidectomy History of total abdominal hysterectomy and bilateral salpingo-oophorectomy Status post laser lithotripsy of ureteral calculus (~07/26/20) [facility] Status post laser lithotripsy of ureteral calculus (~02/04/21) Family History Mother Family history of diabetes mellitus Sister Family history of diabetes mellitus Father Esophageal cancer Other Family history non-contributory No family history of adverse response to anesthesia Social History Smoking Status: Never smoker Second Hand Exposure: Yes (parents smoke); Hx Alcohol Use: Yes Alcohol type: beer Hx Substance Use: No Preferred Language: [place] Communication Ability: Effective Visual Impairment: No Limitations Shop Technician Required: No Beliefs That Will Affect Care: None Current Living Situation: Alone Current Living Situation Comment: Apartment - [facility] ([facility]) Feels Safe at Home: Yes Safety Concerns: Feels Safe At This Time Assistive Devices: Walker Review of Systems Review of Systems: All systems reviewed & are unremarkable except as noted in HPI & below Physical Exam Constitutional: well developed and well nourished; no acute distress Respiratory: normal respiratory effort and able to speak in complete sentences; no labored breathing and no audible wheezes Gastrointestinal (Abdomen): Inspection/Auscultation: abdomen normal to inspection; abdomen not distended Percussion/Palpation: abdomen soft; abdomen nontender and no guarding Musculoskeletal: Head/Neck/Chest: normocephalic Skin: No visible rashes or lesions to exposed skin areas Neurologic: moves all extremities and awake Psychiatric: Orientation: alert, oriented x 3 and cooperative Affect: + tearful affect Genitourinary: + CVA tenderness (right) Results & Data ([facility]) Vital Signs (Past 12 Hours) Vital Signs Temp Pulse Resp BP Pulse Ox 09/25/21 07:29 36.6 C 68 18 144/78 H 97 09/25/21 03:56 76 18 100/47 L 98 09/25/21 02:26 63 20 94/47 L 93 09/24/21 23:41 63 20 116/65 95 09/24/21 22:59 66 20 115/59 L 96 09/24/21 21:17 61 20 122/60 94 09/24/21 20:13 67 20 112/59 L 96 PG Care Time/CCT Total # of Minutes Spent Total Time Spent with Patient: Total time spent is greater than 50% in coordination of care (as documented) at patient's floor/unit and/or counseling patient: Coding Level of Care Code 35874 Initial Inpt Care Lvl 2 Diagnoses Hydronephrosis due to obstruction of ureter N13.1 Nephrolithiasis N20.0 Fall W19.XXXA Encounter type: initial encounter (1) Fall Encounter type: initial encounter Qualified Code(s): W19.XXXA - Unspecified fall, initial encounter
[2021-09-25] MEDS: PANCREAZE (LIPASE 16,800U) CAP PO SCH ×3 (10:27→17:55)
[2021-09-25] MEDS: AZITHROMYCIN 250 MG TAB PO SCH (10:27)
[2021-09-25] MEDS: carvediloL 3.125 MG TAB PO SCH ×2 (10:28→20:58)
[2021-09-25] MEDS: CYANOCOBALAMIN 500 MCG TABLET (VITAMIN B-12) PO SCH (10:28)
[2021-09-25] MEDS: FERROUS SULFATE 325 MG TAB PO SCH (10:28)
[2021-09-25] MEDS: DOCUSATE SODIUM 100 MG CAP PO SCH ×2 (10:28→20:58)
[2021-09-25] MEDS: PANTOprazole 40 MG TAB PO SCH ×2 (10:29→20:59)
[2021-09-25] MEDS: MIRABEGRON ER 25 MG TAB PO SCH (10:29)
[2021-09-25] MEDS: FLUTICASONE FUROATE 100MCG 14 PUFFS/INHALER INH SCH (10:29)
[2021-09-25] MEDS: POTASSIUM CHLORIDE 10 MEQ TABCR PO SCH ×2 (10:30→20:57)
[2021-09-25] MEDS: PREGABALIN 150 MG CAP PO SCH ×3 (10:30→20:57)
[2021-09-25] MEDS: PYRIDOXINE HCL 50 MG TAB PO SCH ×2 (10:30→20:59)
[2021-09-25] MEDS: valACYclovir HCL 500 MG TABLET PO SCH (10:30)
[2021-09-25] MEDS: UMECLIDINIUM/VILANTEROL 62.5/25MCG 7 PUFFS/INHALER INH SCH (10:31)
--- NOTE | 2021-09-25 11:23 | Orthopedic Consultation ---
Date of Consultation September 25, 2021 Assessment & Plan (1) Lumbar transverse process fracture: Discussed findings of CT scans with the patient. Explained to her that she has degenerative disc and facet arthropathy as well as some degenerative disease in her right SI joint. She also has evidence of some old wedge compression deformities of L2 and L3 with possibly some new transverse processes fractures of L1, and L2 and L3. This correlates with her point of tenderness as well as some of her ecchymosis. She does have some new onset paresthesias in the left foot. Will obtain a spine consult for further evaluation. For the time being we will allow her to be weightbearing as tolerated, activities as tolerated with the assistance of walker for ambulation. Explained to her that she will have pain for the next 4 to 6 weeks until things start to heal and resolve. Will defer bracing based on the findings by Spine team. In the mean time she can apply some ice to her back as needed for comfort acutely and then transition to heat when she gets home as needed for comfort. She can do Tylenol as needed for pain. Rest and activity modification as necessary. Advised her to try to continue to be mobile with use of her walker to prevent blood clots and also do ankle pumps frequently when in bed to help with that as well. She can be placed on an aspirin 81 mg twice daily for DVT prophylaxis for the next 4-6 weeks if appropriate and indicated as per medicine. I, Dr. Garcia, saw and examined the patient and discussed the management with my PA. I reviewed my PAs note and agree with the documented findings and the plan of care I developed. Her urinary incontinence does not appear to be new, and can continue to be managed by urology. However, her new onset diarrhea along with the decreased sensation in the left foot/great toe, should be evaluated urgently by the spine team. Continue care per primary service. Will sign off. Present on Admission?: Yes History of Present Illness Reason for Consultation: low back pain - s/p fall yesterday Attending Physician: Kenny Easley MD History of Present Illness Patient is a pleasant 71-year-old female who was seen in the emergency room today. She was brought by ambulance yesterday after sustaining a fall in her home. She states she was in her bathroom and was reaching up overhead to lift some close off of her shower [place] that were hanging. She states she fell backwards and landed directly onto the toilet. She states that she hit very hard. She did not lose consciousness or bump her head. She did not feel dizzy or lightheaded prior to her fall. She does normally walk with a rolling walker in her home. She states that she did have that with her. She did have a call alert bowel around her neck and was able to call for help. She denies any other injuries. States that she does have some low back pain discomfort today. She has had some back pain in the past but no treatment for this. She states that occasionally she uses a heating pad at home which does help. She denies any c hronic numbness or tingling in either extremity but states her left foot/toes feel little tingly since her injury. She denies any other injury at the time of her fall. She was brought to the emergency room yesterday and has been there since. She does live alone. She is tearful today and upset with herself about the fall and the situation especially around this time of the year. She states that she recently had some incontinence which comes and goes due to a kidney stone. She states that she may get a kidney stent today to help with that stone. No new onset incontinence of bladder. Does note new on-set diarrhea. She denies any known history of previous compression fractures. Allergies Allergy/AdvReac Type Severity Reaction Status Date / Time bethanechol Allergy Intermediate RASH, Verified 09/24/21 14:56 "FEELS FUNNY" ertapenem Allergy Intermediate RASH Verified 09/24/21 14:56 Sulfa (Sulfonamide Allergy Intermediate Generalized Verified 09/24/21 14:56 Antibiotics) Rash Cephalosporins Allergy Mild RASH, Verified 09/24/21 14:56 DIARRHEA levofloxacin Allergy Mild RASH,TURNED Verified 09/24/21 14:56 RED promethazine Allergy Mild UNKNOWN Verified 09/24/21 14:56 tobramycin Allergy Mild UNKNOWN Verified 09/24/21 14:56 clindamycin Allergy Unknown Unknown Verified 09/24/21 14:56 dipyridamole Allergy Unknown UNKNOWN Verified 09/24/21 14:56 droperidol Allergy Unknown Unknown Verified 09/24/21 14:56 aspirin AdvReac Intermediate BLEEDING Verified 09/24/21 14:56 nitrofurantoin AdvReac Intermediate Vomiting Verified 09/24/21 14:56 [From Macrobid] tedizolid AdvReac Intermediate GI SYMPTOMS Verified 09/24/21 14:56 bupropion AdvReac Mild NERVOUS Verified 09/24/21 14:56 REACTION cephalexin AdvReac Mild GI SYMPTOMS Verified 09/24/21 14:56 morphine AdvReac Mild NERVOUS Verified 09/24/21 14:56 REACTION TO IT prochlorperazine AdvReac Mild NERVOUS Verified 09/24/21 14:56 REACTION Home Medications Medication Instructions Recorded Confirmed Type colesevelam 625 mg tablet (WelChol) 625 mg PO TID tab 06/17/18 09/24/21 History lorazepam 0.5 mg tablet (Ativan) 0.5 mg PO TID PRN tab 06/17/18 09/24/21 History montelukast 10 mg tablet 10 mg PO HS 06/17/18 09/24/21 History (Singulair) ipratropium 0.5 mg-albuterol 3 mg 3 ml INHALATION Q4H PRN 05/05/19 09/24/21 History (2.5 mg base)/3 mL nebulization soln vkwgjg-maklwobo-mlencep 4 cap PO TID 05/05/19 09/24/21 History 24,000-76,000-120,000 unit capsule,delayed rel (Creon) pyridoxine (vitamin B6) 100 mg 100 mg PO BID 05/05/19 09/24/21 History tablet (Vitamin B-6) omeprazole magnesium 20 mg 20 mg PO BID tab 05/17/19 09/24/21 History tablet,delayed release (Prilosec OTC) BiPap Machine #1 ea 07/24/20 09/24/21 Rx docusate sodium 100 mg capsule 100 mg PO BID #60 cap 09/04/20 09/24/21 Rx (Colace) mecobalamin (vitamin B12) 1,000 1,000 mcg PO QAM 01/21/21 09/24/21 History mcg disintegrating tablet,sublingual risperidone 2 mg tablet 2 mg PO HS 02/27/21 09/24/21 History tamsulosin 0.4 mg capsule 0.4 mg PO HS #30 cap 04/29/21 09/24/21 Rx Flutter Valve #1 ea 06/19/21 09/24/21 Rx fluticasone fur. 100 mcg-umeclid 1 inh INH QAM #60 ea 06/19/21 09/24/21 Rx 62.5 mcg-vilant 25 mcg inhalat.powder (Trelegy Ellipta) pregabalin 150 mg capsule (Lyrica) 150 mg PO TID #90 cap 08/06/21 09/24/21 Rx oxycodone-acetaminophen 5 mg-325 1 tab PO Q6H PRN #30 tab 08/08/21 09/24/21 Rx mg tablet (Percocet) furosemide 40 mg tablet 60 mg PO BID #270 tab 08/28/21 09/24/21 Rx albuterol sulfate 90 mcg/actuation 2 inh INH Q6H PRN 09/24/21 09/24/21 History breath activated powder inhaler carvedilol 3.125 mg tablet 3.125 mg PO BID 09/24/21 09/24/21 History ferrous sulfate 325 mg (65 mg 325 mg PO DAILY 09/24/21 09/24/21 History iron) tablet fluticasone fur. 100 mcg-umeclid 1 inh INHALATION DAILY 09/24/21 09/24/21 History 62.5 mcg-vilant 25 mcg inhalat.powder (Trelegy Ellipta) metolazone 2.5 mg tablet 2.5 mg PO DAILY 09/24/21 09/24/21 History mirabegron 50 mg tablet,extended 50 mg PO DAILY 09/24/21 09/24/21 History release 24 hr (Myrbetriq) potassium chloride 10 mEq 10 meq PO BID 09/24/21 09/24/21 History capsule,extended release ropinirole 0.25 mg tablet 0.25 mg PO HS 09/24/21 09/24/21 History valacyclovir 500 mg tablet 500 mg PO DAILY 09/24/21 09/24/21 History Patient History Medical History Anemia hx Asthma Chronic diastolic (congestive) heart failure follows w/[facility] (Dr. Otoole) Chronic sinusitis Chronic urinary tract infection Deep vein thrombosis RLE (15+ years ago), secondary immobility, treated w/AC Depression History of kidney stones Hyperlipidemia per records Hyperparathyroidism Incisional hernia Many, on abdomen from multiple surgeries/feeding tube MRSA (methicillin resistant staph aureus) culture positive Left wrist -- had 3 nasal swab and all negative - patient states thru [facility] Obesity Pancreatic insufficiency Peripheral neuropathy Port-A-Cath in place right side due to poor vascular access PUD (peptic ulcer disease) hx of and had feeding tube for 28 years and has been removed for 11 years PVC (premature ventricular contraction) Reactive hypoglycemia Sepsis 05/2020 @ [facility], urosepsis 2/2 obstructing renal stone, S/P cysto/stent and ESWL Short bowel syndrome Sleep apnea BIPAP, t/c nighttime O2 per pt Urinary leakage Vitamin D deficiency Wrist injury Scar tissue surrounding remote wrist ORIF several years ago resulting in intermittent inflammation per pt Surgical History History of appendectomy History of cardiac cath 08/2019 ([facility]): essentially normal coronary arteries angiographically, + luminal irregularities. no stents History of cholecystectomy History of colonoscopy (~2015) History of cystoscopy with stone removal History of esophagogastroduodenoscopy (EGD) (~2015) History of gastrointestinal surgery multiple History of joint replacement Rt thumb History of knee replacement procedure of right knee History of lithotripsy History of open reduction and internal fixation (ORIF) procedure LUE History of partial gastrectomy History of prior ablation treatment Right LE in January 2020 and left LE 04/18/20 History of sinus surgery History of tonsillectomy and adenoidectomy History of total abdominal hysterectomy and bilateral salpingo-oophorectomy Status post laser lithotripsy of ureteral calculus (~07/26/20) [facility] Status post laser lithotripsy of ureteral calculus (~02/04/21) Family History Mother Family history of diabetes mellitus Sister Family history of diabetes mellitus Father Esophageal cancer Other Family history non-contributory No family history of adverse response to anesthesia Social History Smoking Status: Never smoker Second Hand Exposure: Yes (parents smoke); Hx Alcohol Use: Yes Alcohol type: beer Hx Substance Use: No Preferred Language: Uzbek Communication Ability: Effective Visual Impairment: No Limitations Upholstery Technician Required: No Beliefs That Will Affect Care: None Current Living Situation: Alone Current Living Situation Comment: [facility] ([facility]) Feels Safe at Home: Yes Safety Concerns: Feels Safe At This Time Assistive Devices: Walker Review of Systems Review of Systems: As per HPI. Physical Exam Musculoskeletal: Exam of bilateral upper extremities: She is nontender with palpation of bilateral upper extremities and shoulders. She is nontender of her cervical spine and has full cervical motion without discomfort. There is no visible deformity or ecchymosis. She is able to do full motion of her shoulders without any discomfort. Distal pulses of her upper extremities are 2+. Sensation is normal throughout. Strength is 5/5. Exam of bilateral lower extremities: Pulses are 2+ bilaterally at dorsalis pedis and posterior tibial. No distal edema in either extremity. She is able to independently straight leg raise and hold against resistance. Strength is 5/5. She can actively flex both knees to about 100 degrees bilaterally. She does have a previous history of a right total knee arthroplasty and incision is healed nicely. No effusion to either knee. No ecchymosis over her legs at all. She has full ankle range of motion bilaterally with full strength. Tolerates logrolling of her hips without any discomfort. She also tolerates full flexion of both hips to about 90 degrees with internal and external rotation and no reproduction of pain in her back. She is nontender with palpation of her thighs. Normal sensation throughout her thighs and calves. Calves are supple and nontender. She has some tingling and decreased sensation in the medial aspect of her lower leg along the medial border of her foot and into her great toe. She states the lesser toes are numb and tingly on the top and the bottom. She is able to feel and dorsum of her foot starting about the base of the metatarsals to the rest of her foot. No change in sensation laterally or anteriorly. She is able to extend the great toe and hold against resistance without any weakness noted. Exam of her back: There is no visible deformity appreciated she does have dark purple ecchymosis mid to lower back on the left side. She is point tender with palpation over the lumbar spinous processes with palpation starting at about L1- L3. No significant tenderness at L5-S1. No tenderness over her sacrum or right or left SI joint. Tenderness around the ecchymotic area and tenderness over the musculature throughout the rest of her upper back. Skin is intact. Results & Data ([facility]) Vital Signs (Past 12 Hours) Vital Signs Temp Pulse Resp BP Pulse Ox 12/22/21 07:29 36.6 C 68 18 144/78 H 97 09/25/21 03:56 76 18 100/47 L 98 09/25/21 02:26 63 20 94/47 L 93 09/24/21 23:41 63 20 116/[address] lumbar spine w con CLINICAL HISTORY: Status post fall with pain COMPARISON STUDY: CT of the abdomen and pelvis from 03/22/2021 CT DOSE: 1252.84 mGy.cm TECHNIQUE: Standard CT of the Lumbar Spine was performed with 94 mL of Optiray 320 IV contrast which was given for earlier CT of the abdomen and pelvis. A dose lowering technique was utilized adhering to the principles of ALARA. FINDINGS: Bones: Bones are diffusely osteopenic. There is no evidence for an acute fracture or malalignment. Minimal old wedge deformities are present involving the inferior endplate of L2 and the superior endplate of L3 as seen on the old CT of the abdomen and pelvis. The heights of the remaining lumbar vertebral bodies are maintained. The vertebral bodies are in anatomic alignment. Is an omental is maintained of a hemangioma of the L3 vertebral body which is also unchanged. Disc spaces: The disc space heights are maintained. There is mild bulging of the annulus at L4-5 and L5-S1. There is vacuum disc phenomenon and calcification of the annulus at L5-S1. Facet joints: Mild hypertrophic facet joint disease is seen at the lower 2 disc space levels. There is asymmetric general change involving the right SI joint. Soft tissues: The prevertebral soft tissues are within normal limits. IMPRESSION: 1. Osteopenia with no acute osseous pathology. 2. Minimal old wedge deformities of L2 and L3. 3. 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 CT OF THE ABDOMEN AND PELVIS WITH CONTRAST CLINICAL HISTORY: back pain, contusion, fall COMPARISON STUDY: CT of the abdomen and pelvis March 22, 2021. Renal ultrasound July 01, 2021. TECHNIQUE: Following IV administration of Optiray, axial images of the abdomen and pelvis were obtained from the lung bases to the proximal femurs. Images were reviewed in the axial, sagittal, and coronal planes. IV contrast was administered without complication. Automated exposure control was utilized for the study. A dose lowering technique was utilized adhering to the principles of ALARA. FINDINGS: Ground glass opacities within the lower lungs are similar to chest CT July 18, 2021. No pneumatosis, free air or portal venous gas is present. There is no evidence for traumatic injury to the liver, spleen, adrenal glands, kidneys or pancreas. Mild biliary ductal dilatation is unchanged and likely related to cholecystectomy. The choledochojejunostomy is noted. Moderate right renal atrophy is noted. A 5 mm x 3 mm mid right ureteral calculus results in mild right hydronephrosis. Multiple bilateral renal calculi are noted. Calculus burden is decreased since CT of March 22, 2021. There are no left ureteral calculi. Marked laxity of the anterior abdominal wall with diastases is again noted. This is unchanged. There is no evidence for a bowel obstruction. The caliber and wall thickness of small and large bowel are normal. There is no free fluid. There is no hemoperitoneum. No acute pelvic fracture is noted. There is no acute hip fracture. Note is made of an acute mildly displaced fracture of the left transverse process of L3. There are possible acute nondisplaced fractures of the left transverse processes of L1 and L2. IMPRESSION: 1. No evidence for traumatic injury to the solid abdominal viscera. 2. Acute mildly displaced fracture of the left transverse process of L3. Possible acute displaced fractures of the left transverse processes of L1 and L2. 3. 5 mm x 3 mm mid right ureteral calculus. This results in mild right hydronephrosis. 4. Bilateral nephrolithiasis. (1) Lumbar transverse process fracture Encounter type: initial encounter Fracture type: closed Qualified Code(s): S32.009A - Unspecified fracture of unspecified lumbar vertebra, initial encounter for closed fracture
[2021-09-25 16:36] LABS: BUN Creatinine Ratio 21.7 (10-20); Calcium 8.3 mg/dl (8.5-10.1); Creatinine Clr Calc Pharmacy 44.6 ml/min; Est GFR (African American) 53.9 ml/min; Est GFR (Non-African American) 46.5 ml/min; Potassium 3.5 mmol/L (3.5-5.1)
[2021-09-25] MEDS: HEPARIN 100 UNIT/ML 5ML FLUSH FLUSH PRN (18:33)
[2021-09-25] MEDS: MONTELUKAST SODIUM 10 MG TABLET PO SCH (20:57)
[2021-09-25] MEDS: rOPINIRole HCL 0.25 MG TABLET PO SCH (20:58)
[2021-09-25] MEDS: TAMSULOSIN HCL 0.4 MG CAP PO SCH (20:58)
[2021-09-25] MEDS: risperiDONE 2 MG TABLET PO SCH (20:58)
[2021-09-26] MEDS: ACETAMINOPHEN 500 MG TAB PO SCH ×3 (02:46→17:42)
[2021-09-26] MEDS: HEPARIN SOD 5,000 UNIT/0.5 ML VIAL SQ SCH ×3 (05:39→20:58)
--- NOTE | 2021-09-26 06:54 | Hospitalist Progress Note ---
Date of Service September 26, 2021 Assessment & Plan (1) Fall: Plan: LikelyOsteoporotic transverse process fractures of lumbar spine - Admitted to med surg with tele - PT/OT consult - Orthopedics consulted for possible new L1-L2 transverse fracture and if needs for brace fitting or surgical intervention - Likely secondary to significant electrolyte abnormalities as below (2) Hypokalemia: Plan: -Potassium of 1.7 on admission -replace and monitor -Holding p.o. Lasix, was taking 60 mg twice daily and an extra 80 mg daily for diastolic CHF and lower extremity edema - denies diarrhea (but hx of short bowel syndrome) - Nephrology also consulted -Patient also took metolazone, per nephrology, metolazone should be discontinued and placed as allergy for her (3) Hyponatremia: Plan: -125 on admission - likely dehydrated secondary to Lasix use, appears hypovolemic on exam -Placement with IV fluids, holding Lasix -Na improved this AM - nephrology consulted, as above - stop metolazone (4) Nephrolithiasis: Plan: Obstructing ureteral stone, mild hydronephrosis -History of such, patient states chronic, but has past six small kidney stones within the past 2 weeks -she is having right-sided flank pain -CT abdomen pelvis shows mild right hydronephrosis, urology consulted -Pain control -IV fluids as above - drain urine -Encourage p.o. intake - Denies hematuria, UA w/o nitrites, positive leukoesterase, negative bacteria -Plan for cystoscopy, and right ureteral stent placement with Dr. Resendiz today (08/27) (5) Sinus infection: Plan: - started on PO azithromycin on admission (6) Chronic diastolic (congestive) heart failure: Plan: - Continue po meds except for metolazone (which should be stopped altogether) DVT ppx: - teds, scds CODE: DNR/DNI Dispo: From home, likely to remain in the hospital x 1-2 days Admission and Anticipated Discharge Date Admission Date: September 24, 2021 Subjective Patient seen in follow-up of fall, back pain, flank pain, renal stone/ obstructing, lumbar transverse process fracture, electrolyte abnormalities Patient seen after her x-ray of lumbar spine Currently lying in bed, in no acute distress Plan for urology procedure later today Continues to have right flank pain and some back pain Currently denies any fever, chills, chest pain, shortness of breath Review of Systems Review of Systems: All systems reviewed & are unremarkable except as noted in Subjective Physical Exam Physical Exam: GENERAL: WD/WN F in NAD HENT: Normocephalic, atraumatic EYES: Normal conjunctiva. Sclera non-icteric. NECK: Supple. RESPIRATORY: Clear to auscultation. CARDIAC: Regular rate, normal rhythm. + systolic murmur. ABDOMEN: Soft, non-distended. No tenderness to palpation. No guarding. MUSCULOSKELETAL: + lumbar spinal and lumbar paraspinal muscle tenderness, + ecchymosis noted. : + CVA tenderness (right) EXTREMITIES: moves extremities NEURO: Alert oriented, answers appropriately, no facial asymmetry, extremities SKIN: warm, dry Results & Data Results & Data ([facility]) Vital Signs (Past 12 Hours) Vital Signs Temp Pulse Resp BP Pulse Ox 09/25/21 22:33 36.4 C L 69 16 117/71 99 09/25/21 20:49 71 154/64 H Medications Administered Current Inpatient Medications Acetaminophen (Acetaminophen 500 Mg Tab) 1,000 mg PO Q8H CATE Stop: 10/24/21 18:44 Last Admin: 09/26/21 02:46 Dose: 1,000 mg Documented by: Acetaminophen (Acetaminophen 325 Mg Tab) 650 mg PO Q4H PRN PRN Reason: Moderate Pain Stop: 10/24/21 20:55 Albuterol (Albuterol Hfa 8 Gm Inhaler) 2 puffs INH Q6H PRN PRN Reason: Shortness Of Breath Or Wheezin Stop: 10/24/21 20:55 Albuterol (Albut/Ipratrop 3mg/0.5mg Neb 3 Ml Vial) 3 ml INH Q4H PRN; Protocol PRN Reason: Shortness Of Breath Or Wheezing Stop: 10/24/21 20:55 Lipase/Protease/Amylase (Pancreaze (Lipase 16,800u) Cap) 5 cap PO TIDM CATE Stop: 10/25/21 07:59 Last Admin: 09/25/21 17:55 Dose: 5 cap Documented by: Azithromycin (Azithromycin 250 Mg Tab) 250 mg PO QAM CATE Stop: 09/28/21 09:01 Last Admin: 09/25/21 10:27 Dose: 250 mg Documented by: Carvedilol (Carvedilol 3.125 Mg Tab) 3.125 mg PO BID [facility] Stop: 10/24/21 20:59 Last Admin: 09/25/21 20:58 Dose: 3.125 mg Documented by: Cyanocobalamin (Cyanocobalamin 500 Mcg Tablet (Vitamin B-12)) 1,000 mcg PO QAM [facility] Stop: 10/25/21 08:59 Last Admin: 09/25/21 10:28 Dose: 1,000 mcg Documented by: Docusate Sodium (Docusate Sodium 100 Mg Cap) 100 mg PO BID [facility] Stop: 10/24/21 20:59 Last Admin: 09/25/21 20:58 Dose: 100 mg Documented by: Ferrous Sulfate (Ferrous Sulfate 325 Mg Tab) 325 mg PO DAILY [facility] Stop: 10/25/21 08:59 Last Admin: 09/25/21 10:28 Dose: 325 mg Documented by: Fluticasone Furoate (Fluticasone Furoate 100mcg 14 Puffs/Inhaler) 1 puffs INH QAM [facility] Stop: 10/25/21 08:59 Last Admin: 09/25/21 10:29 Dose: 1 puffs Documented by: Heparin Sodium (Porcine) (Heparin Sod 5,000 Unit/0.5 Ml Vial) 5,000 units SQ Q8 [facility] Stop: 10/24/21 21:59 Last Admin: 09/26/21 05:39 Dose: 5,000 units Documented by: Heparin Sodium (Porcine) (Heparin 100 Unit/Ml 5ml Flush) 5 ml FLUSH PRN PRN PRN Reason: Flush Stop: 10/25/21 18:01 Last Admin: 09/25/21 18:33 Dose: 5 ml Documented by: Lorazepam (Lorazepam 0.5 Mg Tab) 0.5 mg PO TID PRN PRN Reason: Anxiety Stop: 10/24/21 20:55 Mirabegron (Mirabegron Er 25 Mg Tab) 50 mg PO DAILY [facility] Stop: 10/25/21 08:59 Last Admin: 09/25/21 10:29 Dose: 50 mg Documented by: Miscellaneous (Colesevelam [Welchol]: Order Awaiting Action) 1 ea N/A QS [facility] Stop: 10/25/21 07:59 Last Admin: 09/25/21 23:34 Dose: Not Given Documented by: Montelukast Sodium (Montelukast Sodium 10 Mg Tablet) 10 mg PO HS [facility] Stop: 10/24/21 20:59 Last Admin: 09/25/21 20:57 Dose: 10 mg Documented by: Morphine Sulfate (Morphine Sulfate 2 Mg/Ml Carp) 2 mg IV Q2H PRN; Protocol PRN Reason: Pain (1,2,3,4,5) Stop: 10/08/21 20:55 Morphine Sulfate (Morphine Sulfate 4 Mg/Ml 1 Ml Carp\Vial) 4 mg IV Q2H PRN; Protocol PRN Reason: Pain (6,7,8,9,10) Stop: 10/08/21 20:55 Ondansetron HCl (Ondansetron Inj 2 Mg/Ml 2 Ml Vial) 4 mg IV Q4H PRN PRN Reason: Nausea And Vomiting Stop: 10/24/21 20:55 Oxycodone/Acetaminophen (Oxycodone/Acetaminophen 5mg/325mg Tab) 1 tab PO Q6H PRN PRN Reason: pain Stop: 10/08/21 20:55 Pantoprazole Sodium (Pantoprazole 40 Mg Tab) 40 mg PO BID [facility] Stop: 10/24/21 20:59 Last Admin: 09/25/21 20:59 Dose: 40 mg Documented by: Potassium Chloride (Potassium Chloride 10 Meq Tabcr) 10 meq PO BID [facility] Stop: 10/24/21 20:59 Last Admin: 09/25/21 20:57 Dose: 10 meq Documented by: Pregabalin (Pregabalin 150 Mg Cap) 150 mg PO TID [facility] Stop: 10/24/21 20:59 Last Admin: 09/25/21 20:57 Dose: 150 mg Documented by: Pyridoxine HCl (Pyridoxine Hcl 50 Mg Tab) 100 mg PO BID [facility] Stop: 10/24/21 20:59 Last Admin: 09/25/21 20:59 Dose: 100 mg Documented by: Risperidone (Risperidone 2 Mg Tablet) 2 mg PO [facility] Stop: 10/24/21 20:59 Last Admin: 09/25/21 20:58 Dose: 2 mg Documented by: Ropinirole HCl (Ropinirole Hcl 0.25 Mg Tablet) 0.25 mg PO [facility] Stop: 10/24/21 20:59 Last Admin: 09/25/21 20:58 Dose: 0.25 mg Documented by: Tamsulosin HCl (Tamsulosin Hcl 0.4 Mg Cap) 0.4 mg PO HS [facility] Stop: 10/24/21 20:59 Last Admin: 09/25/21 20:58 Dose: 0.4 mg Documented by: Umeclidinium/Vilanterol (Umeclidinium/Vilanterol 62.5/25mcg 7 Puffs/Inhaler) 1 puffs INH QAM CATE Stop: 10/25/21 08:59 Last Admin: 09/25/21 10:31 Dose: 1 puffs Documented by: Valacyclovir HCl (Valacyclovir Hcl 500 Mg Tablet) 500 mg PO DAILY [facility] Stop: 10/25/21 08:59 Last Admin: 09/25/21 10:30 Dose: 500 mg Documented by: (1) Fall Encounter type: initial encounter Qualified Code(s): W19.XXXA - Unspecified fall, initial encounter
[2021-09-26] MEDS: POTASSIUM CHLORIDE 10 MEQ TABCR PO SCH (08:09)
[2021-09-26] MEDS: PYRIDOXINE HCL 50 MG TAB PO SCH ×2 (08:09→20:57)
[2021-09-26] MEDS: valACYclovir HCL 500 MG TABLET PO SCH (08:09)
[2021-09-26] MEDS: PREGABALIN 150 MG CAP PO SCH ×3 (08:09→21:00)
[2021-09-26] MEDS: AZITHROMYCIN 250 MG TAB PO SCH (08:09)
[2021-09-26] MEDS: MIRABEGRON ER 25 MG TAB PO SCH (08:09)
[2021-09-26] MEDS: PANTOprazole 40 MG TAB PO SCH ×2 (08:09→20:58)
[2021-09-26] MEDS: PANCREAZE (LIPASE 16,800U) CAP PO SCH ×3 (08:09→17:42)
[2021-09-26] MEDS: DOCUSATE SODIUM 100 MG CAP PO SCH ×2 (08:10→21:01)
[2021-09-26] MEDS: CYANOCOBALAMIN 500 MCG TABLET (VITAMIN B-12) PO SCH (08:10)
[2021-09-26] MEDS: carvediloL 3.125 MG TAB PO SCH ×2 (08:10→20:59)
[2021-09-26] MEDS: FERROUS SULFATE 325 MG TAB PO SCH (08:16)
[2021-09-26] MEDS: HEPARIN 100 UNIT/ML 5ML FLUSH FLUSH PRN (08:26)
[2021-09-26 08:47] LABS: Hematocrit (blood only) 39.9 % (37-47); Hemoglobin 13.2 g/dL (12.0-16.0); Mean Corpuscular Hemoglobin 30.1 pg (25-34); Mean Corpuscular Hgb Conc 33.1 g/dL (32-36); Mean Corpuscular Volume 90.9 fL (80-100); Mean Platelet Volume 10.4 fL (7.4-10.4); Platelet Count 200 K/uL (130-400); RDW Coefficient of Variation 14.1 % (11.5-14.5); RDW Standard Deviation 46.8 fL (36.4-46.3); Red Blood Count 4.39 M/uL (4.2-5.4); White Blood Count 4.71 K/uL (4.8-10.8)
--- NOTE | 2021-09-26 09:07 | Anesthesiology Consultation ---
Date of Service September 26, 2021 Assessment & Plan (1) Encounter for pre-operative examination: Chart Review Chart Review: Acceptable Risk for Surgery and Patient NOT seen in Pre Admission Testing covid neg 09/24/21. Consults Requested none History Height/Weight Height: 5 ft 1 in Weight: 86.6 kg Allergies Allergy/AdvReac Type Severity Reaction Status Date / Time bethanechol Allergy Intermediate RASH, Verified 09/24/21 14:56 "FEELS FUNNY" ertapenem Allergy Intermediate RASH Verified 09/24/21 14:56 Sulfa (Sulfonamide Allergy Intermediate Generalized Verified 09/24/21 14:56 Antibiotics) Rash Cephalosporins Allergy Mild RASH, Verified 09/24/21 14:56 DIARRHEA levofloxacin Allergy Mild RASH,TURNED Verified 09/24/21 14:56 RED promethazine Allergy Mild UNKNOWN Verified 09/24/21 14:56 tobramycin Allergy Mild UNKNOWN Verified 09/24/21 14:56 clindamycin Allergy Unknown Unknown Verified 09/24/21 14:56 dipyridamole Allergy Unknown UNKNOWN Verified 09/24/21 14:56 droperidol Allergy Unknown Unknown Verified 09/24/21 14:56 aspirin AdvReac Intermediate BLEEDING Verified 09/24/21 14:56 nitrofurantoin AdvReac Intermediate Vomiting Verified 09/24/21 14:56 [From Macrobid] tedizolid AdvReac Intermediate GI SYMPTOMS Verified 09/24/21 14:56 bupropion AdvReac Mild NERVOUS Verified 09/24/21 14:56 REACTION cephalexin AdvReac Mild GI SYMPTOMS Verified 09/24/21 14:56 morphine AdvReac Mild NERVOUS Verified 09/24/21 14:56 REACTION TO IT prochlorperazine AdvReac Mild NERVOUS Verified 09/24/21 14:56 REACTION Medications Home Medications Medication Instructions Recorded Confirmed Last Taken colesevelam 625 mg tablet (WelChol) 625 mg PO TID tab 06/17/18 09/24/21 04/28/21 18:00 lorazepam 0.5 mg tablet (Ativan) 0.5 mg PO TID PRN tab 06/17/18 09/24/21 04/28/21 22:00 montelukast 10 mg tablet 10 mg PO HS 06/17/18 09/24/21 04/28/21 18:00 (Singulair) ipratropium 0.5 mg-albuterol 3 mg 3 ml INHALATION Q4H PRN 05/05/19 09/24/21 04/28/21 16:00 (2.5 mg base)/3 mL nebulization soln [id number] 4 cap PO TID 05/05/19 09/24/21 04/28/21 18:00 24,000-76,000-120,000 unit capsule,delayed rel (Creon) pyridoxine (vitamin B6) 100 mg 100 mg PO BID 05/05/19 09/24/21 04/28/21 18:00 tablet (Vitamin B-6) omeprazole magnesium 20 mg 20 mg PO BID tab 05/17/19 09/24/21 04/28/21 18:00 tablet,delayed release (Prilosec OTC) BiPap Machine #1 ea 07/24/20 09/24/21 Unknown docusate sodium 100 mg capsule 100 mg PO BID #60 cap 09/04/20 09/24/21 04/28/21 18:00 (Colace) mecobalamin (vitamin B12) 1,000 1,000 mcg PO QAM 01/21/21 09/24/21 04/28/21 08:00 mcg disintegrating tablet,sublingual risperidone 2 mg tablet 2 mg PO HS 02/27/21 09/24/21 04/28/21 22:00 tamsulosin 0.4 mg capsule 0.4 mg PO HS #30 cap 04/29/21 09/24/21 04/28/21 22:00 Flutter Valve #1 ea 06/19/21 09/24/21 Unknown fluticasone fur. 100 mcg-umeclid 1 inh INH QAM #60 ea 06/19/21 09/24/21 Unknown 62.5 mcg-vilant 25 mcg inhalat.powder (Trelegy Ellipta) pregabalin 150 mg capsule (Lyrica) 150 mg PO TID #90 cap 08/06/21 09/24/21 Unknown oxycodone-acetaminophen 5 mg-325 1 tab PO Q6H PRN #30 tab 08/08/21 09/24/21 Unknown mg tablet (Percocet) furosemide 40 mg tablet 60 mg PO BID #270 tab 08/28/21 09/24/21 Unknown albuterol sulfate 90 mcg/actuation 2 inh INH Q6H PRN 09/24/21 09/24/21 Unknown breath activated powder inhaler carvedilol 3.125 mg tablet 3.125 mg PO BID 09/24/21 09/24/21 Unknown ferrous sulfate 325 mg (65 mg 325 mg PO DAILY 09/24/21 09/24/21 Unknown iron) tablet fluticasone fur. 100 mcg-umeclid 1 inh INHALATION DAILY 09/24/21 09/24/21 Unknown 62.5 mcg-vilant 25 mcg inhalat.powder (Trelegy Ellipta) metolazone 2.5 mg tablet 2.5 mg PO DAILY 09/24/21 09/24/21 Unknown mirabegron 50 mg tablet,extended 50 mg PO DAILY 09/24/21 09/24/21 Unknown release 24 hr (Myrbetriq) potassium chloride 10 mEq 10 meq PO BID 09/24/21 09/24/21 Unknown capsule,extended release ropinirole 0.25 mg tablet 0.25 mg PO HS 09/24/21 09/24/21 Unknown valacyclovir 500 mg tablet 500 mg PO DAILY 09/24/21 09/24/21 Unknown Active Medications Generic Name Dose Route Start Last Admin Trade Name Freq PRN Reason Stop Dose Admin Acetaminophen 1,000 mg 09/24/21 18:45 09/26/21 02:46 Acetaminophen 500 Mg Tab PO 10/24/21 18:44 1,000 mg Q8H CATE Administration Lipase/Protease/Amylase 5 cap 09/25/21 08:00 09/26/21 08:09 Pancreaze (Lipase 16,800u) Cap PO 10/25/21 07:59 5 cap TIDM CATE Administration Azithromycin 250 mg 09/25/21 09:00 09/26/21 08:09 Azithromycin 250 Mg Tab PO 09/28/21 09:01 250 mg QAM CATE Administration Carvedilol 3.125 mg 09/24/21 21:00 09/26/21 08:10 Carvedilol 3.125 Mg Tab PO 10/24/21 20:59 3.125 mg BID CATE Administration Cyanocobalamin 1,000 mcg 09/25/21 09:00 09/26/21 08:10 Cyanocobalamin 500 Mcg Tablet (Vitamin B-12) PO 10/25/21 08:59 1,000 mcg QAM CATE Administration Docusate Sodium 100 mg 09/24/21 21:00 09/26/21 08:10 Docusate Sodium 100 Mg Cap PO 10/24/21 20:59 100 mg BID CATE Administration Ferrous Sulfate 325 mg 09/25/21 09:00 09/26/21 08:16 Ferrous Sulfate 325 Mg Tab PO 10/25/21 08:59 Not Given DAILY CATE Fluticasone Furoate 1 puffs 09/25/21 09:00 09/25/21 10:29 Fluticasone Furoate 100mcg 14 Puffs/Inhaler INH 10/25/21 08:59 1 puffs QAM CATE Administration Heparin Sodium (Porcine) 5,000 units 09/24/21 22:00 09/26/21 05:39 Heparin Sod 5,000 Unit/0.5 Ml Vial SQ 10/24/21 21:59 5,000 units Q8 CATE Administration Heparin Sodium (Porcine) 5 ml 09/25/21 18:02 09/26/21 08:26 Heparin 100 Unit/Ml 5ml Flush FLUSH 10/25/21 18:01 5 ml PRN PRN Administration Flush Mirabegron 50 mg 09/25/21 09:00 09/26/21 08:09 Mirabegron Er 25 Mg Tab PO 10/25/21 08:59 50 mg DAILY CATE Administration Miscellaneous 1 ea 09/25/21 08:00 09/26/21 08:10 Colesevelam [Welchol]: Order Awaiting Action N/A 10/25/21 07:59 Not Given QS CATE Montelukast Sodium 10 mg 09/24/21 21:00 09/25/21 20:57 Montelukast Sodium 10 Mg Tablet PO 10/24/21 20:59 10 mg HS CATE Administration Pantoprazole Sodium 40 mg 09/24/21 21:00 09/26/21 08:09 Pantoprazole 40 Mg Tab PO 10/24/21 20:59 40 mg BID CATE Administration Potassium Chloride 10 meq 09/24/21 21:00 09/26/21 08:09 Potassium Chloride 10 Meq Tabcr PO 10/24/21 20:59 10 meq BID CATE Administration Pregabalin 150 mg 09/24/21 21:00 09/26/21 08:09 Pregabalin 150 Mg Cap PO 10/24/21 20:59 150 mg TID CATE Administration Pyridoxine HCl 100 mg 09/24/21 21:00 09/26/21 08:09 Pyridoxine Hcl 50 Mg Tab PO 10/24/21 20:59 100 mg BID CATE Administration Risperidone 2 mg 09/24/21 21:00 09/25/21 20:58 Risperidone 2 Mg Tablet PO 10/24/21 20:59 2 mg HS CATE Administration Ropinirole HCl 0.25 mg 09/24/21 21:00 09/25/21 20:58 Ropinirole Hcl 0.25 Mg Tablet PO 10/24/21 20:59 0.25 mg HS CATE Administration Tamsulosin HCl 0.4 mg 09/24/21 21:00 09/25/21 20:58 Tamsulosin Hcl 0.4 Mg Cap PO 10/24/21 20:59 0.4 mg HS CATE Administration Umeclidinium/Vilanterol 1 puffs 09/25/21 09:00 09/25/21 10:31 Umeclidinium/Vilanterol 62.5/25mcg 7 Puffs/Inhaler INH 10/25/21 08:59 1 puffs QAM CATE Administration Valacyclovir HCl 500 mg 09/25/21 09:00 09/26/21 08:09 Valacyclovir Hcl 500 Mg Tablet PO 10/25/21 08:59 500 mg DAILY CATE Administration NPO Date Last Intake of Fluids: 09/25/21 Time Last Intake of Fluids: 23:45 Past Medical History Medical History Anemia hx Asthma Chronic diastolic (congestive) heart failure follows w/[facility] (Dr. Otoole) Chronic sinusitis Chronic urinary tract infection Deep vein thrombosis RLE (15+ years ago), secondary immobility, treated w/AC Depression History of kidney stones Hyperlipidemia per records Hyperparathyroidism Incisional hernia Many, on abdomen from multiple surgeries/feeding tube MRSA (methicillin resistant staph aureus) culture positive Left wrist -- had 3 nasal swab and all negative - patient states thru [facility] Obesity Pancreatic insufficiency Peripheral neuropathy Port-A-Cath in place right side due to poor vascular access PUD (peptic ulcer disease) hx of and had feeding tube for 28 years and has been removed for 11 years PVC (premature ventricular contraction) Reactive hypoglycemia Sepsis 05/2020 @ [facility], urosepsis 2/2 obstructing renal stone, S/P cysto/stent and ES [facility] Short bowel syndrome Sleep apnea BIPAP, t/c nighttime O2 per pt Urinary leakage Vitamin D deficiency Wrist injury Scar tissue surrounding remote wrist ORIF several years ago resulting in intermittent inflammation per pt Past Family History Family History Mother Family history of diabetes mellitus Sister Family history of diabetes mellitus Father Esophageal cancer Other Family history non-contributory No family history of adverse response to anesthesia Past Surgical History Surgical History History of appendectomy History of cardiac cath 08/2019 (MD): essentially normal coronary arteries angiographically, + luminal irregularities. no stents History of cholecystectomy History of colonoscopy (~2015) History of cystoscopy with stone removal History of esophagogastroduodenoscopy (EGD) (~2015) History of gastrointestinal surgery multiple History of joint replacement Rt thumb History of knee replacement procedure of right knee History of lithotripsy History of open reduction and internal fixation (ORIF) procedure LUE History of partial gastrectomy History of prior ablation treatment Right LE in January 2020 and left LE 04/18/20 History of sinus surgery History of tonsillectomy and adenoidectomy History of total abdominal hysterectomy and bilateral salpingo-oophorectomy Status post laser lithotripsy of ureteral calculus (~07/26/20) [facility] Status post laser lithotripsy of ureteral calculus (~02/04/21) Right shoulder scope with RCR. 05/25. [place] [facility] Social History Smoking Status: Never smoker Hx Alcohol Use: Yes Alcohol type: beer alcohol intake frequency: holidays/special occasions only Hx Substance Use: No substance use type: does not use Physical Exam Vital Signs Last Vital Signs Temp 37 C 09/26/21 07:04 Pulse 73 09/26/21 07:04 Resp 16 09/26/21 07:04 BP 131/68 09/26/21 07:04 Pulse Ox 98 09/26/21 07:04 Testing Laboratory Results 09/26/21 08:22 PT 10.6 Seconds (9.0-12.0) 09/24/21 14:33 INR 1.0 (0.9-1.1) 09/24/21 14:33 Urine Color Yellow 09/24/21 17:12 Urine Appearance Clear (Clear) 09/24/21 17:12 Urine pH 7.5 (4.5-7.5) 09/24/21 17:12 Ur Specific [place] 1.017 (1.000-1.030) 09/24/21 17:12 Urine Protein Negative (Negative) 09/24/21 17:12 Urine Glucose (UA) Negative (Negative) 09/24/21 17:12 Urine Ketones Negative (Negative) 09/24/21 17:12 Urine Nitrite Negative (Negative) 09/24/21 17:12 Ur Leukocyte Esterase 2+ (Negative) H 09/24/21 17:12 Urine WBC (Auto) 5-10 /hpf (0-5) H 09/24/21 17:12 Urine RBC (Auto) 0-4 /hpf (0-4) 09/24/21 17:12 U Hyaline Cast (Auto) 1-5 /lpf (0-5) 09/24/21 17:12 U Epithel Cells (Auto) 20-30 /lpf (0-5) H 09/24/21 17:12 Urine Bacteria (Auto) Negative (Negative) 09/24/21 17:12 Electrocardiogram Date: 05/23/21 DICTATED BY:Nicho Lombardi MD Test Reason : Blood Pressure : / mmHG Vent. Rate : 068 BPM Atrial Rate : 068 BPM P-R Int : 216 ms QRS Dur : 098 ms QT Int : 402 ms P-R-T Axes : 075 -18 025 degrees QTc Int : 427 ms Sinus rhythm with 1st degree A-V block Moderate voltage criteria for LVH, may be normal variant ( R in aVL , Armen product ) Nonspecific T wave abnormality Abnormal ECG When compared with ECG of 19-JUL-2020 11:34, No significant change Confirmed by Nicho Lombardi ([id number]) on 05/24/2021 6:01:40 AM Chest X-Ray Date: 09/24/21 XR chest 1V portable CLINICAL HISTORY: Status post fall with pain. COMPARISON STUDY: 11/02/2020 TECHNIQUE: 1 view of the chest FINDINGS: Single frontal view of the chest demonstrates the cardiomediastinal silhouette to be within normal limits. A Port-A-Cath is in place. The lungs are clear of alveolar opacities. There is no evidence for pleural effusion. There is no evidence for vascular congestion. There is no acute osseous pathology. IMPRESSION: No acute cardiopulmonary disease. Echocardiogram Date: 07/15/21 LV systolic function is normal. Mild LVH LA is mildly dilated Mild AR. Mild to moderate MR. EF 60-65%
--- NOTE | 2021-09-26 09:13 | Urology Progress Note ---
Date of Service September 26, 2021 Assessment & Plan (1) Hydronephrosis due to obstruction of ureter: (2) Nephrolithiasis: (3) Fall: Plan: 71yo F with multiple chronic medical issues admitted s/p fall with left transverse processe fracture, electrolyte abnormalities, and incidental finding on CT of a 5 x 3mm obstructing right ureteral stone. - Plan of care reviewed with Astrid, on-call urologist. - Still with right flank and back pain this morning, no stone passage noted. - Pt remains afebrile, non-toxic appearing. - Labs reviewed - Wbc 4.71, Creatinine 1.06 - Given her persistent right flank pain in the context of an obstructing 5x3mm right ureteral stone, will proceed with OR for cystoscopy, right retrograde pyelogram, right ureteral stent placement. Risks and benefits to be reviewed with patient by Dr. Resendiz. OR notified. Covid test negative. She is on PO Azithromycin. - Patient agreeable to plan, all questions were answered. - Keep NPO. - Strain all urine. - Continue supportive care, pain management, and close monitoring. - Will continue to follow. Admission and Anticipated Discharge Date Admission Date: September 24, 2021 Supervising Physician Co-Signing Physician Notes Plan for cysto and right stent today. Case reviewed with ortho - we will use caution when positioning her given the spinous process fractures, but moving forward with our case is not felt to pose significant risk to her spine. Subjective Pt examined at bedside this AM. Awake, sitting in wheelchair on arrival. Currently waiting to be taken to Xray. No acute distress. Has been NPO. Still with right flank and back pain. No fevers or chills. Denies nausea or vomiting this morning. Reports incontinence of bowel and bladder. Per nursing note, pt with an external Purewick catheter draining clear yellow urine. Urine output appears adequate. Offered no additional complaints at time of exam. Review of Systems Constitutional: as per Subjective / HPI Gastrointestinal: as per Subjective / HPI Genitourinary: as per Subjective / HPI Musculoskeletal: as per Subjective / HPI Physical Exam Constitutional: well developed and well nourished; no acute distress Respiratory: normal respiratory effort and able to speak in complete sentences; no labored breathing and no audible wheezes Gastrointestinal (Abdomen): Inspection/Auscultation: abdomen normal to inspection; abdomen not distended Musculoskeletal: Head/Neck/Chest: normocephalic Skin: No visible rashes or lesions to exposed skin areas Neurologic: moves all extremities and awake Psychiatric: Orientation: alert, oriented x 3 and cooperative Genitourinary: + CVA tenderness (mild right-sided) Results & Data ([facility]) Vital Signs (Past 12 Hours) Vital Signs Temp Pulse Resp BP Pulse Ox 09/26/21 07:04 37 C 73 16 131/68 98 09/25/21 22:33 36.4 C L 69 16 117/71 99 09/25/21 20:49 71 154/64 H PG Care Time/CCT Total # of Minutes Spent Total Time Spent with Patient: Total time spent is greater than 50% in coordination of care (as documented) at patient's floor/unit and/or counseling patient: Coding Level of Care Code 95369 Subseq Hosp Care Lvl 2 Diagnoses Hydronephrosis due to obstruction of ureter N13.1 Nephrolithiasis N20.0 Fall W19.XXXA Encounter type: initial encounter (1) Fall Encounter type: initial encounter Qualified Code(s): W19.XXXA - Unspecified fall, initial encounter
[2021-09-26 09:33] LABS: Albumin Level 2.8 gm/dl (3.4-5.0); BUN Creatinine Ratio 20.2 (10-20); Calcium 8.9 mg/dl (8.5-10.1); Creatinine Clr Calc Pharmacy 50.1 ml/min; Est GFR (Non-African American) 53.5 ml/min; Magnesium 2.3 mg/dl (1.8-2.4); Potassium 4.1 mmol/L (3.5-5.1)
[2021-09-26 09:38] LABS: Albumin Globulin Ratio 0.8 (0.9-2); Bilirubin,Total 0.3 mg/dl (0.2-1); Globulin 3.4 gm/dl (2.5-4.0); Phosphorus 2.7 mg/dl (2.5-4.9); Total Protein 6.2 gm/dl (6.4-8.2)
--- NOTE | 2021-09-26 10:00 | XRay Report ---
XR lumbar spine 2-3V HISTORY: 71 years-old Female back pain . Acute low back pain with recent fall COMPARISON: CT lumbar spine 09/24/2021 TECHNIQUE: 3 views of the lumbar spine FINDINGS: Acute fracture of the left L3 transverse process redemonstrated. Demineralized appearance of the bone s. No acute lumbar compression deformity, subluxation or endplate erosion. Bilateral nephrolithiasis. 5 mm right ureteral calculus overlies the right sacrum. Surgical clips and suture material of the ab domen and pelvis. Nonobstructive bowel gas pattern. Gluteal soft tissue calcifications. IMPRESSION: 1. Acute fracture of the left L3 transverse process redemonstrated. 2. Bilateral nephrolithiasis. 5 mm calculus of the right ureter overlying the right sacrum is in unch anged positioning. ACT 112: Negative or not required by law. The above report was generated using voice recognition software. It may contain grammatical, syntax o r spelling errors. Electronically signed by: Soham Kirby M.D. 09/26/2021 9:59 AM
[2021-09-26] MEDS ORDERED: PROPOFOL IV EMULSION 10 MG/ML 20 ML VIAL IV ONE (10:11)
[2021-09-26] MEDS ORDERED: LIDOCAINE 2% 2 ML VIAL/AMP(20MG/ML) INFIL ONE (10:11)
[2021-09-26] MEDS ORDERED: MIDAZOLAM HCL 1 MG/ML 2ML VIAL ONE (10:12)
[2021-09-26] MEDS ORDERED: fentaNYL citrate 100 MCG/2 ML VIAL ONE (10:12)
[2021-09-26] MEDS ORDERED: ePHEDrine sulfate 50 MG/ML AMP IV PRN (10:24)
[2021-09-26] MEDS ORDERED: fentaNYL citrate 100 MCG/2 ML VIAL IV PRN (10:24)
[2021-09-26] MEDS ORDERED: ONDANSETRON INJ 2 MG/ML 2 ML VIAL IV PRN (10:24)
[2021-09-26] MEDS ORDERED: ATROPINE SULFATE 0.1 MG/ML 10ML SYR IV PRN (10:24)
--- NOTE | 2021-09-26 11:13 | Consultation Report ---
NEPHROLOGY CONSULTATION NOTE DATE OF SERVICE: 09/26/2021 REASON FOR CONSULT: Severe electrolyte imbalance. HISTORY OF PRESENT ILLNESS: The patient is a 71-year-old female who was admitted 2 days ago because of fall at home. At the time of fall, she was feeling very weak. In the Emergency Department, blood work shows very severe electrolyte imbalance with potassium of 1.7, sodium of 125. Since admission, the Lasix and metolazone have been held, and she has been given IV fluid as well as electrolyte repl acement, and with that, this morning, sodium and potassium are both normal. CT abdomen and pelvis do ne at the time of admission showed right ureteral calculus causing mild right hydronephrosis as well as bilateral nephrolithiasis. She has been seen by urology for this and she is actually getting uret tigist stent placement later today. At this point, she is complaining of back pain as she does have a lumbar transverse process fracture, but it does not appear she is requiring surgical intervention for that. It appears the patient has significant GI issues and has problem with chronic malabsorption a s she does have a short bowel syndrome. She normally gets Lasix 60 mg twice daily, but recently abou t a week ago, she also was put on metolazone. She claims as soon as she takes metolazone, she feels very, very wiped out and feels extremely weak. ALLERGY LIST: REVIEWED IN DETAIL AND IS A VERY LONG LIST. HOME MEDICATION LIST: Reviewed in detail. Of special interest to nephrology, she is on Lasix 60 mg twice daily as well as metolazone 2.5 mg daily, but it does not appear she is actually taking it benja y. Potassium chloride 10 twice daily. REVIEW OF SYSTEMS: As listed in HPI, unless stated otherwise, 12 systems reviewed and negative. Pos itive review of systems include back pain, weakness. PHYSICAL EXAMINATION: GENERAL: A middle-aged white female who is awake, alert, and oriented x3. HEENT: Mucous membrane is moist. NECK: Supple. No jugular venous distention. CHEST: Bilateral clear to auscultation. CARDIOVASCULAR: S1 and S2 regular. ABDOMEN: Soft, nontender. EXTREMITIES: Show no edema. LABORATORY TEST: At the time of admission, potassium was 1.7, now it is normal at 4.1; sodium was lo w at 125, now it is normal at 141. WBC count 4.71, hemoglobin 13.2. Kidney function normal with a B UN of 21, creatinine 1.06. Magnesium has been normal right from the time of admission, it is 2.3 now . ASSESSMENT AND PLAN: A 71-year-old female who was admitted following a fall and was found to have cr itical electrolyte imbalance. I have been consulted for, 1. Hypokalemia. 2. Hyponatremia. 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 For her con gestive heart failure, she can be managed on Lasix alone and there is a plenty of room to go up on th e dose if needed. She seems to have a very exaggerated electrolyte response with metolazone, which i s not unusual as lot of patients do have that feature, and given this, I absolutely recommend she laney uld never ever be on metolazone and should be listed as an allergy. Her electrolytes are back to hernandez ng normal at this time. She does not appear to be in volume overload, so I would hold the Lasix for a day or two, but she can be restarted hopefully by the time of discharge. I would increase the pota ssium supplementation that she normally gets to 20 twice daily, but the main recommendation still is she should never ever be on metolazone. Job ID: [id number]
[2021-09-26] MEDS ORDERED: ONDANSETRON INJ 2 MG/ML 2 ML VIAL ONE (12:57)
--- NOTE | 2021-09-26 13:02 | Operative Report ---
PG Post Operative Report Pre & Post Diagnosis Operation Date: 09/26/21 10:40 Pre-Op Diagnosis: right ureteral stone Post-Op Diagnosis: right ureteral stone I identified the patient and participated in the time-out.: Yes Procedure Operation Date: 09/26/21 10:40 Actual Procedures p Cystoscopy Retrograde Pyelogram, Right Stent Placement(Right) - Meng Resendiz MD Surgeon Rohith Resendiz MD Tree [employer] none Estimated Blood Loss 0 Findings Consistent with Post-Op Diagnosis Specimens none Description of Procedure The patient was identified in the preoperative holding area, appropriate informed consents were reviewed and completed and the patient was transferred to the operative suite. Upon arrival, appropriate antibiotics and anesthesia were administered and the patient was placed in dorsal lithotomy position and prepped and draped in sterile fashion. At begin the case I passed a 22 [place] cystoscope with 30 degree lens. She had cloudy urine which I irrigated copiously. I then inspected the bladder which was quite healthy. There were a few small stone fragments floating in the bladder. I turned my attention to the right UO and cannulated with a sensor wire and 5 [place] open-ended catheter. The wire advanced the kidney without difficulty and I subsequently placed a 6 [place] by 24 cm double-J stent. There was good curl in the kidney as well as the bladder. Urine was draining through the stent. There were no complications and I concluded the case. She was reversed of anesthesia and taken to the recovery room in stable condition. I attest to the content of the Intraoperative Record and any orders documented therein. Any exceptions are noted below.
--- NOTE | 2021-09-26 13:15 | Anesthesiology Progress Note ---
Date of Service September 26, 2021 Anesthesia Post Procedure Vital Signs Vital Signs: Temp Pulse Pulse Resp BP BP Pulse Ox 09/26/21 13:10 70 12 100/57 L 100 09/26/21 13:04 97.2 F L 72 15 101/56 L 100 09/26/21 10:06 97.7 F 69 20 111/47 L 97 09/26/21 07:04 98.6 F 73 16 131/68 98 09/25/21 22:33 97.5 F L 69 16 117/71 99 09/25/21 20:49 71 154/64 H 09/25/21 16:40 97.3 F L 66 16 168/77 H 97 Pain Intensity Left Lower Back: Pain Intensity: 8 Transfer of Care Handoff Completed per policy Notes Mental Status: alert / awake / arousable and participated in evaluation Patient Amnestic to Procedure: Yes Nausea / Vomiting: adequately controlled Pain: adequately controlled Airway Patency, RR, SpO2: stable & adequate BP & HR: stable & adequate Hydration State: stable & adequate Anesthetic Complications: no major complications apparent and Pt Satisfied with anesthetic care
--- NOTE | 2021-09-26 13:21 | Fluoroscopy Report ---
FL KUB HISTORY: 71 years-old Female RT RETROGRADE/STENT right-sided cystourethrogram COMPARISON: CT abdomen and pelvis 09/24/2021 TECHNIQUE: 2 spot fluoroscopic images of the abdomen and pelvis were obtained utilizing 2.7 seconds f luoroscopy time FINDINGS: A right ureteral stent appears to be in satisfactory positioning. Bilateral nephrolithiasis and the r ight ureteral calculus are better seen by CT. Surgical clips of the pelvis. Pelvic basin phleboliths. IMPRESSION: Fluoroscopic assistance as above. ACT 112: Negative or not required by law. The above report was generated using voice recognition software. It may contain grammatical, syntax o r spelling errors. Electronically signed by: Soham Kirby M.D. 09/26/2021 1:19 PM
[2021-09-26] MEDS: UMECLIDINIUM/VILANTEROL 62.5/25MCG 7 PUFFS/INHALER INH SCH (13:44)
[2021-09-26] MEDS: FLUTICASONE FUROATE 100MCG 14 PUFFS/INHALER INH SCH (13:45)
[2021-09-26] MEDS: risperiDONE 2 MG TABLET PO SCH (20:57)
[2021-09-26] MEDS: TAMSULOSIN HCL 0.4 MG CAP PO SCH (20:57)
[2021-09-26] MEDS: MONTELUKAST SODIUM 10 MG TABLET PO SCH (20:57)
[2021-09-26] MEDS: rOPINIRole HCL 0.25 MG TABLET PO SCH (20:58)
[2021-09-26] MEDS: POTASSIUM CHLORIDE CRTAB 20 MEQ TABCR PO SCH (20:59)
[2021-09-27] MEDS: ACETAMINOPHEN 500 MG TAB PO SCH ×3 (03:04→11:49)
[2021-09-27] MEDS: HEPARIN SOD 5,000 UNIT/0.5 ML VIAL SQ SCH ×2 (05:52→14:08)
[2021-09-27] MEDS: PANCREAZE (LIPASE 16,800U) CAP PO SCH ×2 (07:23→11:49)
[2021-09-27] MEDS: MIRABEGRON ER 25 MG TAB PO SCH (07:23)
[2021-09-27] MEDS: AZITHROMYCIN 250 MG TAB PO SCH (07:24)
[2021-09-27] MEDS: FERROUS SULFATE 325 MG TAB PO SCH (07:24)
[2021-09-27] MEDS: PANTOprazole 40 MG TAB PO SCH (07:24)
[2021-09-27] MEDS: valACYclovir HCL 500 MG TABLET PO SCH (07:24)
[2021-09-27] MEDS: PYRIDOXINE HCL 50 MG TAB PO SCH (07:24)
[2021-09-27] MEDS: POTASSIUM CHLORIDE CRTAB 20 MEQ TABCR PO SCH (07:24)
[2021-09-27] MEDS: carvediloL 3.125 MG TAB PO SCH (07:24)
[2021-09-27] MEDS: DOCUSATE SODIUM 100 MG CAP PO SCH (07:25)
[2021-09-27] MEDS: CYANOCOBALAMIN 500 MCG TABLET (VITAMIN B-12) PO SCH (07:25)
[2021-09-27] MEDS: UMECLIDINIUM/VILANTEROL 62.5/25MCG 7 PUFFS/INHALER INH SCH (07:26)
[2021-09-27] MEDS: FLUTICASONE FUROATE 100MCG 14 PUFFS/INHALER INH SCH (07:26)
[2021-09-27] MEDS: PREGABALIN 150 MG CAP PO SCH ×2 (07:30→14:08)
[2021-09-27 08:55] LABS: Hematocrit (blood only) 42.8 % (37-47); Hemoglobin 13.9 g/dL (12.0-16.0); Mean Corpuscular Hemoglobin 29.8 pg (25-34); Mean Corpuscular Hgb Conc 32.5 g/dL (32-36); Mean Corpuscular Volume 91.8 fL (80-100); Mean Platelet Volume 10.1 fL (7.4-10.4); Platelet Count 177 K/uL (130-400); RDW Coefficient of Variation 14.6 % (11.5-14.5); RDW Standard Deviation 49.2 fL (36.4-46.3); Red Blood Count 4.66 M/uL (4.2-5.4); White Blood Count 6.57 K/uL (4.8-10.8)
[2021-09-27] MEDS ORDERED: metOLazone 2.5 MG TABLET PO SCH (09:00)
[2021-09-27 09:17] LABS: Magnesium 2.2 mg/dl (1.8-2.4); Phosphorus 2.9 mg/dl (2.5-4.9)
[2021-09-27 09:18] LABS: Albumin Level 3.1 gm/dl (3.4-5.0); BUN Creatinine Ratio 18.3 (10-20); Calcium 9.2 mg/dl (8.5-10.1); Creatinine Clr Calc Pharmacy 48.2 ml/min; Est GFR (African American) 59.3 ml/min; Est GFR (Non-African American) 51.2 ml/min; Potassium 4.7 mmol/L (3.5-5.1)
--- NOTE | 2021-09-27 09:19 | Urology Progress Note ---
Date of Service September 27, 2021 Assessment & Plan (1) Ureterolithiasis: Plan: s/p cysto, stent yesterday - ok for d/c home from a standpoint - we will plan for outpt f/u Admission and Anticipated Discharge Date Admission Date: September 24, 2021 Subjective reports that she is feeling much better today anxious to go home had to be straight cathed x1 overnight has voided since that time no other subjective complaints today Physical Exam Constitutional: well developed and well nourished Respiratory: no respiratory distress Cardiovascular: Extremities: no pedal edema Gastrointestinal (Abdomen): Inspection/Auscultation: abdomen normal to inspection Results & Data ([facility]) Vital Signs (Past 12 Hours) Vital Signs Temp Pulse Resp BP Pulse Ox 09/27/21 07:03 36.5 C 65 16 125/75 92 09/27/21 02:11 36.4 C L 66 16 115/61 97 09/26/21 22:05 36.6 C 67 16 106/68 97 PG Care Time/CCT Total # of Minutes Spent Total Time Spent with Patient: Total time spent is greater than 50% in coordination of care (as documented) at patient's floor/unit and/or counseling patient: Coding Level of Care Code 84770 Subseq Hosp Care Lvl 2 Diagnoses Ureterolithiasis N20.1
[2021-09-27 09:21] LABS: Albumin Globulin Ratio 0.8 (0.9-2); Bilirubin,Total 0.3 mg/dl (0.2-1); Globulin 3.9 gm/dl (2.5-4.0)
--- NOTE | 2021-09-27 14:44 | Orthopedic Consultation ---
Date of Consultation September 27, 2021 Assessment & Plan (1) Lumbar transverse process fracture: At this time the patient is doing well. I believe with her body habitus and other limitations brace would be more cumbersome than the beneficial. She can continue with regular activity avoid lifting more than 5 pounds for the next several weeks but I have conveyed to the patient that he should fractures will heal up without incident. She is okay for discharge per orthopedics. History of Present Illness Reason for Consultation: Patient is here status post fall and was noted to have a nondisplaced transverse process fracture of L3. Patient does admit to some back pain but is controlled. She has no other complaints at this time and states she is fairly functional and ready to go home. Attending Physician: Kenny Easley MD Allergies Allergy/AdvReac Type Severity Reaction Status Date / Time bethanechol Allergy Intermediate RASH, Verified 09/24/21 14:56 "FEELS FUNNY" ertapenem Allergy Intermediate RASH Verified 09/24/21 14:56 Sulfa (Sulfonamide Allergy Intermediate Generalized Verified 09/24/21 14:56 Antibiotics) Rash Cephalosporins Allergy Mild RASH, Verified 09/24/21 14:56 DIARRHEA levofloxacin Allergy Mild RASH,TURNED Verified 09/24/21 14:56 RED promethazine Allergy Mild UNKNOWN Verified 09/24/21 14:56 tobramycin Allergy Mild UNKNOWN Verified 09/24/21 14:56 clindamycin Allergy Unknown Unknown Verified 09/24/21 14:56 dipyridamole Allergy Unknown UNKNOWN Verified 09/24/21 14:56 droperidol Allergy Unknown Unknown Verified 09/24/21 14:56 metolazone AdvReac Severe Verified 09/26/21 10:26 aspirin AdvReac Intermediate BLEEDING Verified 09/24/21 14:56 nitrofurantoin AdvReac Intermediate Vomiting Verified 09/24/21 14:56 [From Macrobid] tedizolid AdvReac Intermediate GI SYMPTOMS Verified 09/24/21 14:56 bupropion AdvReac Mild NERVOUS Verified 09/24/21 14:56 REACTION cephalexin AdvReac Mild GI SYMPTOMS Verified 09/24/21 14:56 morphine AdvReac Mild NERVOUS Verified 09/24/21 14:56 REACTION TO IT prochlorperazine AdvReac Mild NERVOUS Verified 09/24/21 14:56 REACTION Home Medications Medication Instructions Recorded Confirmed Type colesevelam 625 mg tablet (WelChol) 625 mg PO TID tab 06/17/18 09/24/21 History lorazepam 0.5 mg tablet (Ativan) 0.5 mg PO TID PRN tab 06/17/18 09/24/21 History montelukast 10 mg tablet 10 mg PO HS 06/17/18 09/24/21 History (Singulair) ipratropium 0.5 mg-albuterol 3 mg 3 ml INHALATION Q4H PRN 05/05/19 09/24/21 History (2.5 mg base)/3 mL nebulization soln [id number] 4 cap PO TID 05/05/19 09/24/21 History 24,000-76,000-120,000 unit capsule,delayed rel (Creon) pyridoxine (vitamin B6) 100 mg 100 mg PO BID 05/05/19 09/24/21 History tablet (Vitamin B-6) omeprazole magnesium 20 mg 20 mg PO BID tab 05/17/19 09/24/21 History tablet,delayed release (Prilosec OTC) BiPap Machine #1 ea 07/24/20 09/24/21 Rx docusate sodium 100 mg capsule 100 mg PO BID #60 cap 09/04/20 09/24/21 Rx (Colace) mecobalamin (vitamin B12) 1,000 1,000 mcg PO QAM 01/21/21 09/24/21 History mcg disintegrating tablet,sublingual risperidone 2 mg tablet 2 mg PO HS 02/27/21 09/24/21 History tamsulosin 0.4 mg capsule 0.4 mg PO HS #30 cap 04/29/21 09/24/21 Rx Flutter Valve #1 ea 06/19/21 09/24/21 Rx fluticasone fur. 100 mcg-umeclid 1 inh INH QAM #60 ea 06/19/21 09/24/21 Rx 62.5 mcg-vilant 25 mcg inhalat.powder (Trelegy Ellipta) pregabalin 150 mg capsule (Lyrica) 150 mg PO TID #90 cap 08/06/21 09/24/21 Rx oxycodone-acetaminophen 5 mg-325 1 tab PO Q6H PRN #30 tab 08/08/21 09/24/21 Rx mg tablet (Percocet) furosemide 40 mg tablet 60 mg PO BID #270 tab 08/28/21 09/24/21 Rx albuterol sulfate 90 mcg/actuation 2 inh INH Q6H PRN 09/24/21 09/24/21 History breath activated powder inhaler carvedilol 3.125 mg tablet 3.125 mg PO BID 09/24/21 09/24/21 History ferrous sulfate 325 mg (65 mg 325 mg PO DAILY 09/24/21 09/24/21 History iron) tablet fluticasone fur. 100 mcg-umeclid 1 inh INHALATION DAILY 09/24/21 09/24/21 History 62.5 mcg-vilant 25 mcg inhalat.powder (Trelegy Ellipta) metolazone 2.5 mg tablet 2.5 mg PO DAILY 09/24/21 09/24/21 History mirabegron 50 mg tablet,extended 50 mg PO DAILY 09/24/21 09/24/21 History release 24 hr (Myrbetriq) potassium chloride 10 mEq 10 meq PO BID 09/24/21 09/24/21 History capsule,extended release ropinirole 0.25 mg tablet 0.25 mg PO HS 09/24/21 09/24/21 History valacyclovir 500 mg tablet 500 mg PO DAILY 09/24/21 09/24/21 History Patient History Medical History Anemia hx Asthma Chronic diastolic (congestive) heart failure follows w/[facility] (Dr. Otoole) Chronic sinusitis Chronic urinary tract infection Deep vein thrombosis RLE (15+ years ago), secondary immobility, treated w/AC Depression History of kidney stones Hyperlipidemia per records Hyperparathyroidism Incisional hernia Many, on abdomen from multiple surgeries/feeding tube MRSA (methicillin resistant staph aureus) culture positive Left wrist -- had 3 nasal swab and all negative - patient states thru [facility] Obesity Pancreatic insufficiency Peripheral neuropathy Port-A-Cath in place right side due to poor vascular access PUD (peptic ulcer disease) hx of and had feeding tube for 28 years and has been removed for 11 years PVC (premature ventricular contraction) Reactive hypoglycemia Sepsis 05/2020 @ [facility], urosepsis 2/2 obstructing renal stone, S/P cysto/stent and ESWL Short bowel syndrome Sleep apnea BIPAP, t/c nighttime O2 per pt Urinary leakage Vitamin D deficiency Wrist injury Scar tissue surrounding remote wrist ORIF several years ago resulting in intermittent inflammation per pt Surgical History History of appendectomy History of cardiac cath 08/2019 (CT): essentially normal coronary arteries angiographically, + luminal irregularities. no stents History of cholecystectomy History of colonoscopy (~2015) History of cystoscopy with stone removal History of esophagogastroduodenoscopy (EGD) (~2015) History of gastrointestinal surgery multiple History of joint replacement Rt thumb History of knee replacement procedure of right knee History of lithotripsy History of open reduction and internal fixation (ORIF) procedure LUE History of partial gastrectomy History of prior ablation treatment Right LE in January 2020 and left LE 04/18/20 History of sinus surgery History of tonsillectomy and adenoidectomy History of total abdominal hysterectomy and bilateral salpingo-oophorectomy Status post laser lithotripsy of ureteral calculus (~07/26/20) [facility] Status post laser lithotripsy of ureteral calculus (~02/04/21) Family History Mother Family history of diabetes mellitus Sister Family history of diabetes mellitus Father Esophageal cancer Other Family history non-contributory No family history of adverse response to anesthesia Social History Smoking Status: Never smoker Second Hand Exposure: Yes (parents smoke); Hx Alcohol Use: Yes Alcohol type: beer Hx Substance Use: No Preferred Language: Kyrgyz Communication Ability: Effective Visual Impairment: No Limitations Center Mgr Required: No Beliefs That Will Affect Care: None Current Living Situation: Alone Current Living Situation Comment: Apartment - [facility] ([facility]) Feels Safe at Home: Yes Safety Concerns: Feels Safe At This Time Assistive Devices: Denture - Upper, Denture - Lower, Glasses and Walker Physical Exam Physical Exam: On exam patient is very pleasant. She is at the bedside. She is eccentric to detailed testing bilateral extremities. No sensory deficits. Results & Data ([facility]) Vital Signs (Past 12 Hours) Vital Signs Temp Pulse Resp BP Pulse Ox 09/27/21 07:03 36.5 C 65 16 125/75 92 (1) Lumbar transverse process fracture Encounter type: initial encounter Fracture type: closed Qualified Code(s): S32.009A - Unspecified fracture of unspecified lumbar vertebra, initial encounter for closed fracture
--- NOTE | 2021-09-27 15:18 | Hospitalist Progress Note ---
Date of Service September 27, 2021 Assessment & Plan (1) Fall: Plan: LikelyOsteoporotic transverse process fractures of lumbar spine CT abdomen/pelvis 1. No evidence for traumatic injury to the solid abdominal viscera. 2. Acute mildly displaced fracture of the left transverse process of L3. Possible acute displaced fractures of the left transverse processes of L1 and L2. 3. 5 mm x 3 mm mid right ureteral calculus. This results in mild right hydronephrosis. 4. Bilateral nephrolithiasis. - Admitted to med surg with tele - PT/OT consult - Orthopedics consulted for Acute mildly displaced fracture of the left transverse process of L3 and possible new L1-L2 transverse fracture and if needs for brace fitting or surgical intervention - At this time orthopedics recommends no lifting anything heavier than 5 pounds for several weeks, brace may not be so helpful due to patient's body habitus - fall likely secondary to significant electrolyte abnormalities as below (2) Hypokalemia: Plan: -Potassium of 1.7 on admission -replace and monitor - ow K level normal -Holding p.o. Lasix on admission, was taking 60 mg twice daily and an extra 80 mg daily for diastolic CHF and lower extremity edema - denies diarrhea (but hx of short bowel syndrome) - Nephrology also consulted -Patient also took metolazone, per nephrology, metolazone should be discontinued and placed as allergy for her If needed, Lasix should be used in higher doses (3) Hyponatremia: Plan: -125 on admission - likely dehydrated secondary to Lasix use, appears hypovolemic on exam -Placement with IV fluids, holding Lasix -Na improved , now 137 - nephrology consulted, as above - stop metolazone (4) Nephrolithiasis: Plan: Obstructing ureteral stone, mild hydronephrosis -History of such, patient states chronic, but has past six small kidney stones within the past 2 weeks -she is having right-sided flank pain -CT abdomen pelvis shows 5 mm x 3 mm mid right ureteral calculus. This results in mild right hydronephrosis Urology consulted -Pain control -IV fluids as above - drain urine - Denies hematuria, UA w/o nitrites, positive leukoesterase, negative bacteria -Now s/p cystoscopy, and right ureteral stent placement with Dr. Resendiz (08/27) -Patient will follow-up with urology as outpatient, patient is well-known to their practice (5) Sinus infection: Plan: - started on PO azithromycin on admission (6) Chronic diastolic (congestive) heart failure: Plan: - Continue po meds except for metolazone (which should be stopped altogether) DVT ppx: - teds, scds CODE: DNR/DNI Dispo: Plan to discharge home today Admission and Anticipated Discharge Date Admission Date: September 24, 2021 Subjective Patient seen in follow-up of fall, back pain, flank pain, renal stone/ obstructing, lumbar transverse process fracture, electrolyte abnormalities No acute events overnight Patient had right ureteral stent placed yesterday, doing well today, required 1 cath overnight, now avoiding the difficulty Seen by urology this morning, cleared for discharge Currently sitting up in chair,, in no acute distress She is inquiring about discharge Currently denies any fever, chills, chest pain, shortness of breath Review of Systems Review of Systems: All systems reviewed & are unremarkable except as noted in Subjective Physical Exam Physical Exam: GENERAL: WD/WN F in NAD HENT: Normocephalic, atraumatic EYES: Normal conjunctiva. Sclera non-icteric. NECK: Supple. RESPIRATORY: Clear to auscultation. CARDIAC: Regular rate, normal rhythm. + systolic murmur. ABDOMEN: Soft, non-distended. No tenderness to palpation. No guarding. MUSCULOSKELETAL: + lumbar spinal and lumbar paraspinal muscle tenderness, + ecchymosis noted. : + CVA tenderness (right) EXTREMITIES: moves extremities NEURO: Alert oriented, answers appropriately, no facial asymmetry, extremities SKIN: warm, dry Results & Data Results & Data ([facility]) Vital Signs (Past 12 Hours) Vital Signs Temp Pulse Resp BP Pulse Ox 09/27/21 14:54 36.3 C L 58 L 17 118/67 99 09/27/21 07:03 36.5 C 65 16 125/75 92 Laboratory Results 09/27/21 09/27/21 09/27/21 Range/Units 08:41 08:41 08:41 WBC 6.57 (4.8-10.8) K/uL RBC 4.66 (4.2-5.4) M/uL Hgb 13.9 (12.0-16.0) g/dL Hct 42.8 (37-47) % MCV 91.8 (80-100) fL MCH 29.8 (25-34) pg MCHC 32.5 (32-36) g/dL RDW Std Deviation 49.2 H (36.4-46.3) fL RDW Coeff of David 14.6 H (11.5-14.5) % Plt Count 177 (130-400) K/uL MPV 10.1 (7.4-10.4) fL Sodium 137 (136-145) mmol/L Potassium 4.7 (3.5-5.1) mmol/L Chloride 106 (98-107) mmol/L Carbon Dioxide 29 (21-32) mmol/L Anion Gap 2.0 L (3-11) BUN 20 H (7-18) mg/dl Creatinine 1.10 (0.6-1.2) mg/dl Est Cr Clr Drug Dosing 48.2 ml/min Est GFR ( Amer) 59.3 ml/min Est GFR (Non-Af Amer) 51.2 ml/min BUN/Creatinine Ratio 18.3 (10-20) Glucose 142 H (70-99) mg/dl Calcium 9.2 (8.5-10.1) mg/dl Phosphorus 2.9 (2.5-4.9) mg/dl Magnesium 2.2 (1.8-2.4) mg/dl Total Bilirubin 0.3 (0.2-1) mg/dl AST 27 (15-37) U/L ALT 29 (12-78) Alkaline Phosphatase 140 H (45-117) U/L Total Protein 7.0 (6.4-8.2) gm/dl Albumin 3.1 L (3.4-5.0) gm/dl Globulin 3.9 (2.5-4.0) gm/dl Albumin/Globulin Ratio 0.8 L (0.9-2) Urine Osmolality (500-800) mOsm/kg 09/26/21 Range/Units 22:39 WBC (4.8-10.8) K/uL RBC (4.2-5.4) M/uL Hgb (12.0-16.0) g/dL Hct (37-47) % MCV (80-100) fL MCH (25-34) pg MCHC (32-36) g/dL RDW Std Deviation (36.4-46.3) fL RDW Coeff of David (11.5-14.5) % Plt Count (130-400) K/uL MPV (7.4-10.4) fL Sodium (136-145) mmol/L Potassium (3.5-5.1) mmol/L Chloride (98-107) mmol/L Carbon Dioxide (21-32) mmol/L Anion Gap (3-11) BUN (7-18) mg/dl Creatinine (0.6-1.2) mg/dl Est Cr Clr Drug Dosing ml/min Est GFR ( Amer) ml/min Est GFR (Non-Af Amer) ml/min BUN/Creatinine Ratio (10-20) Glucose (70-99) mg/dl Calcium (8.5-10.1) mg/dl Phosphorus (2.5-4.9) mg/dl Magnesium (1.8-2.4) mg/dl Total Bilirubin (0.2-1) mg/dl AST (15-37) U/L ALT (12-78) Alkaline Phosphatase (45-117) U/L Total Protein (6.4-8.2) gm/dl Albumin (3.4-5.0) gm/dl Globulin (2.5-4.0) gm/dl Albumin/Globulin Ratio (0.9-2) Urine Osmolality 400 L (500-800) mOsm/kg Medications Administered Current Inpatient Medications Acetaminophen (Acetaminophen 500 Mg Tab) 1,000 mg PO Q8H CATE Stop: 10/24/21 18:44 Last Admin: 09/27/21 11:49 Dose: 500 mg Documented by: Acetaminophen (Acetaminophen 325 Mg Tab) 650 mg PO Q4H PRN PRN Reason: Moderate Pain Stop: 10/24/21 20:55 Albuterol (Albuterol Hfa 8 Gm Inhaler) 2 puffs INH Q6H PRN PRN Reason: Shortness Of Breath Or Wheezin Stop: 10/24/21 20:55 Albuterol (Albut/Ipratrop 3mg/0.5mg Neb 3 Ml Vial) 3 ml INH Q4H PRN; Protocol PRN Reason: Shortness Of Breath Or Wheezing Stop: 10/24/21 20:55 Lipase/Protease/Amylase (Pancreaze (Lipase 16,800u) Cap) 5 cap PO TIDM CATE Stop: 10/25/21 07:59 Last Admin: 09/27/21 11:49 Dose: 5 cap Documented by: Azithromycin (Azithromycin 250 Mg Tab) 250 mg PO QAM CATE Stop: 09/28/21 09:01 Last Admin: 09/27/21 07:24 Dose: 250 mg Documented by: Carvedilol (Carvedilol 3.125 Mg Tab) 3.125 mg PO BID CATE Stop: 10/24/21 20:59 Last Admin: 09/27/21 07:24 Dose: 3.125 mg Documented by: Cyanocobalamin (Cyanocobalamin 500 Mcg Tablet (Vitamin B-12)) 1,000 mcg PO QAM CATE Stop: 10/25/21 08:59 Last Admin: 09/27/21 07:25 Dose: 1,000 mcg Documented by: Docusate Sodium (Docusate Sodium 100 Mg Cap) 100 mg PO BID CATE Stop: 10/24/21 20:59 Last Admin: 09/27/21 07:25 Dose: Not Given Documented by: Ferrous Sulfate (Ferrous Sulfate 325 Mg Tab) 325 mg PO DAILY CATE Stop: 10/25/21 08:59 Last Admin: 09/27/21 07:24 Dose: 325 mg Documented by: Fluticasone Furoate (Fluticasone Furoate 100mcg 14 Puffs/Inhaler) 1 puffs INH QAM CATE Stop: 10/25/21 08:59 Last Admin: 09/27/21 07:26 Dose: 1 puffs Documented by: Heparin Sodium (Porcine) (Heparin Sod 5,000 Unit/0.5 Ml Vial) 5,000 units SQ Q8 CATE Stop: 10/24/21 21:59 Last Admin: 09/27/21 14:08 Dose: 5,000 units Documented by: Heparin Sodium (Porcine) (Heparin 100 Unit/Ml 5ml Flush) 5 ml FLUSH PRN PRN PRN Reason: Flush Stop: 10/25/21 18:01 Last Admin: 09/26/21 08:26 Dose: 5 ml Documented by: Lidocaine (Lidocaine 5% 1 Patch) 1 patch TD Q24H CATE Stop: 10/27/21 15:59 Lorazepam (Lorazepam 0.5 Mg Tab) 0.5 mg PO TID PRN PRN Reason: Anxiety Stop: 10/24/21 20:55 Mirabegron (Mirabegron Er 25 Mg Tab) 50 mg PO DAILY [facility] Stop: 10/25/21 08:59 Last Admin: 09/27/21 07:23 Dose: 50 mg Documented by: Miscellaneous (Colesevelam [Welchol]: Order Awaiting Action) 1 ea N/A QS CATE Stop: 10/25/21 07:59 Last Admin: 09/27/21 14:45 Dose: Not Given Documented by: Miscellaneous (Remove Lidoderm Patch) 1 ea N/A Q24H CATE Stop: 10/28/21 03:59 Montelukast Sodium (Montelukast Sodium 10 Mg Tablet) 10 mg PO HS [facility] Stop: 10/24/21 20:59 Last Admin: 09/26/21 20:57 Dose: 10 mg Documented by: Morphine Sulfate (Morphine Sulfate 2 Mg/Ml Carp) 2 mg IV Q2H PRN; Protocol PRN Reason: Pain (1,2,3,4,5) Stop: 10/08/21 20:55 Morphine Sulfate (Morphine Sulfate 4 Mg/Ml 1 Ml Carp\Vial) 4 mg IV Q2H PRN; Protocol PRN Reason: Pain (6,7,8,9,10) Stop: 10/08/21 20:55 Ondansetron HCl (Ondansetron Inj 2 Mg/Ml 2 Ml Vial) 4 mg IV Q4H PRN PRN Reason: Nausea And Vomiting Stop: 10/24/21 20:55 Oxycodone/Acetaminophen (Oxycodone/Acetaminophen 5mg/325mg Tab) 1 tab PO Q6H PRN PRN Reason: pain Stop: 10/08/21 20:55 Last Admin: 09/27/21 07:28 Dose: 1 tab Documented by: Pantoprazole Sodium (Pantoprazole 40 Mg Tab) 40 mg PO BID [facility] Stop: 10/24/21 20:59 Last Admin: 09/27/21 07:24 Dose: 40 mg Documented by: Potassium Chloride (Potassium Chloride 10 Meq Tabcr) 10 meq PO BID [facility] Stop: 10/27/21 20:59 Pregabalin (Pregabalin 150 Mg Cap) 150 mg PO TID [facility] Stop: 10/24/21 20:59 Last Admin: 09/27/21 14:08 Dose: 150 mg Documented by: Pyridoxine HCl (Pyridoxine Hcl 50 Mg Tab) 100 mg PO BID [facility] Stop: 10/24/21 20:59 Last Admin: 09/27/21 07:24 Dose: 100 mg Documented by: Risperidone (Risperidone 2 Mg Tablet) 2 mg PO HS [facility] Stop: 10/24/21 20:59 Last Admin: 09/26/21 20:57 Dose: 2 mg Documented by: Ropinirole HCl (Ropinirole Hcl 0.25 Mg Tablet) 0.25 mg PO [facility] Stop: 10/24/21 20:59 Last Admin: 09/26/21 20:58 Dose: 0.25 mg Documented by: Tamsulosin HCl (Tamsulosin Hcl 0.4 Mg Cap) 0.4 mg PO [facility] Stop: 10/24/21 20:59 Last Admin: 09/26/21 20:57 Dose: 0.4 mg Documented by: Umeclidinium/Vilanterol (Umeclidinium/Vilanterol 62.5/25mcg 7 Puffs/Inhaler) 1 puffs INH QAM [facility] Stop: 10/25/21 08:59 Last Admin: 09/27/21 07:26 Dose: 1 puffs Documented by: Valacyclovir HCl (Valacyclovir Hcl 500 Mg Tablet) 500 mg PO DAILY [facility] Stop: 10/25/21 08:59 Last Admin: 09/27/21 07:24 Dose: 500 mg Documented by: (1) Fall Encounter type: initial encounter Qualified Code(s): W19.XXXA - Unspecified fall, initial encounter
[2021-09-27] MEDS ORDERED: FUROSEMIDE 20 MG TAB PO ONE (15:30)
--- NOTE | 2021-09-27 15:41 | Discharge Summary ---
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 She presents today status post a fall where she lost her balance while reaching for clothes that were hanging on a shower rack, and fell backwards and hit her lower back on commode. Her pain currently is rated as a 10 out of 10. She is bruised on her back on exam. Patient normally ambulates well without assistance and lives at home independently participating in all ADLs. She has a life alert button and therefore pressed it whenever she was on the ground. She admits to feeling "woozy" after she fell. She has been taking her medications routinely including Lasix 60 mg twice daily and 80 mg as needed for fluid in her legs, denies any changes in her diet recently. Denies any abdominal complaints or recent nausea, vomiting or diarrhea which could explain electrolyte abnormalities. Currently she does have a headache, and also reports feeling like she has had a sinus infection for the past week. She has postnasal drip as well as sinus pressure, headache, and green nasal discharge. Denies any known Covid positive contacts. After reviewing the imaging it appears that she has sustained mildly displaced fracture of the left transverse process of L3 and possible acute displaced fractures of left transverse processes of L1 and L2. Also concerning are her electrolyte abnormalities which include sodium of 125 and a potassium of 1.7 on admission. She had been given potassium 40 M EQ p.o., started on NSS at 125 an hour and given 1 g of mag. Admission Exam Per Admitting Provider Per ED provider: GENERAL: Awake, alert, uncomfortable-appearing, in no distress HENT: Normocephalic, atraumatic. Oropharynx with dry mucous membranes and otherwise unremarkable.. EYES: Normal conjunctiva. Sclera non-icteric. NECK: Supple. No nuchal rigidity. FROM. No JVD. RESPIRATORY: Clear to auscultation. CARDIAC: Regular rate, normal rhythm. 3/6 systolic murmur. Extremities warm and well perfused. Pulses equal. ABDOMEN: Soft, non-distended. No tenderness to palpation. No rebound or guarding. No masses. RECTAL: Deferred. MUSCULOSKELETAL: Chest examination reveals no tenderness. The back is symmetrical on inspection without obvious abnormality. No cervical or thoracic midline tenderness to palpation or step-offs. Mild lumbar paraspinal muscle tenderness left greater than right with left-sided ecchymosis/contusion noted. No bony crepitus. There is no CVA tenderness to palpation. No joint edema. LOWER EXTREMITIES: Calves are equal size bilaterally and non-tender. No edema. No discoloration. NEURO: Normal sensorium. No sensory or motor deficits noted. SKIN: No rash or jaundice noted. Principal Diagnosis Fall Right obstructing ureteral renal stone, mild hydronephrosis Hyponatremia, hypokalemia Lumbar transverse process fracture Discharge Exam GENERAL: WD/WN F in NAD HENT: Normocephalic, atraumatic EYES: Normal conjunctiva. Sclera non-icteric. NECK: Supple. RESPIRATORY: Clear to auscultation. CARDIAC: Regular rate, normal rhythm. + systolic murmur. ABDOMEN: Soft, non-distended. No tenderness to palpation. No guarding. MUSCULOSKELETAL: + lumbar spinal and lumbar paraspinal muscle tenderness (improved), + ecchymosis noted. : + CVA tenderness (right) - improved EXTREMITIES: moves extremities NEURO: Alert oriented, answers appropriately, no facial asymmetry, extremities SKIN: warm, dry Discharge Data Allergies Allergy/AdvReac Type Severity Reaction Status Date / Time bethanechol Allergy Intermediate RASH, Verified 09/24/21 14:56 "FEELS FUNNY" ertapenem Allergy Intermediate RASH Verified 09/24/21 14:56 Sulfa (Sulfonamide Allergy Intermediate Generalized Verified 09/24/21 14:56 Antibiotics) Rash Cephalosporins Allergy Mild RASH, Verified 09/24/21 14:56 DIARRHEA levofloxacin Allergy Mild RASH,TURNED Verified 09/24/21 14:56 RED promethazine Allergy Mild UNKNOWN Verified 09/24/21 14:56 tobramycin Allergy Mild UNKNOWN Verified 09/24/21 14:56 clindamycin Allergy Unknown Unknown Verified 09/24/21 14:56 dipyridamole Allergy Unknown UNKNOWN Verified 09/24/21 14:56 droperidol Allergy Unknown Unknown Verified 09/24/21 14:56 metolazone AdvReac Severe Verified 09/26/21 10:26 aspirin AdvReac Intermediate BLEEDING Verified 09/24/21 14:56 nitrofurantoin AdvReac Intermediate Vomiting Verified 09/24/21 14:56 [From Macrobid] tedizolid AdvReac Intermediate GI SYMPTOMS Verified 09/24/21 14:56 bupropion AdvReac Mild NERVOUS Verified 09/24/21 14:56 REACTION cephalexin AdvReac Mild GI SYMPTOMS Verified 09/24/21 14:56 morphine AdvReac Mild NERVOUS Verified 09/24/21 14:56 REACTION TO IT prochlorperazine AdvReac Mild NERVOUS Verified 09/24/21 14:56 REACTION Consultations 09/24/21 17:39 ED Decision to Admit Stat 09/24/21 18:09 Consult Nephrology Routine Consult Orthopedic Surgery Routine 09/25/21 07:54 Consult Urology Routine 09/25/21 11:38 Consult Orthopedic Surgery Routine Procedures Performed Operation Date: 09/26/21 10:40 Actual Procedures p Cystoscopy Retrograde Pyelogram, Right Stent Placement(Right) - Meng Resendiz MD Ordered Studies 09/24/21 12:51 CT abd pelvis IV con only Stat IMPRESSION: 1. No evidence for traumatic injury to the solid abdominal viscera. 2. Acute mildly displaced fracture of the left transverse process of L3. Possible acute displaced fractures of the left transverse processes of L1 and L 2. 3. 5 mm x 3 mm mid right ureteral calculus. This results in mild right hydronephrosis. 4. Bilateral nephrolithiasis. CT lumbar spine w con Stat IMPRESSION: 1. Osteopenia with no acute osseous pathology. 2. Minimal old wedge deformities of L2 and L3. 3. 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 09/26/21 11:00 FL KUB Routine Hospital Course (1) Fall: LikelyOsteoporotic transverse process fractures of lumbar spine CT abdomen/pelvis 1. No evidence for traumatic injury to the solid abdominal viscera. 2. Acute mildly displaced fracture of the left transverse process of L3. Possible acute displaced fractures of the left transverse processes of L1 and L2. 3. 5 mm x 3 mm mid right ureteral calculus. This results in mild right hydronephrosis. 4. Bilateral nephrolithiasis. - Admitted to med surg with tele - PT/OT consult - Orthopedics consulted for Acute mildly displaced fracture of the left transverse process of L3 and possible new L1-L2 transverse fracture and if needs for brace fitting or surgical intervention - At this time orthopedics recommends no lifting anything heavier than 5 pounds for several weeks, brace may not be so helpful due to patient's body habitus - fall likely secondary to significant electrolyte abnormalities as below (2) Hypokalemia: -Potassium of 1.7 on admission -replace and monitor - ow K level normal -Holding p.o. Lasix on admission, was taking 60 mg twice daily and an extra 80 mg daily for diastolic CHF and lower extremity edema - denies diarrhea (but hx of short bowel syndrome) - Nephrology also consulted -Patient also took metolazone, per nephrology, metolazone should be discontinued and placed as allergy for her If needed, Lasix should be used in higher doses (3) Hyponatremia: -125 on admission - likely dehydrated secondary to Lasix use, appears hypovolemic on exam -Placement with IV fluids, holding Lasix -Na improved , now 137 - nephrology consulted, as above - stop metolazone (4) Nephrolithiasis: Obstructing ureteral stone, mild hydronephrosis -History of such, patient states chronic, but has past six small kidney stones within the past 2 weeks -she is having right-sided flank pain -CT abdomen pelvis shows 5 mm x 3 mm mid right ureteral calculus. This results in mild right hydronephrosis Urology consulted -Pain control -IV fluids as above - drain urine - Denies hematuria, UA w/o nitrites, positive leukoesterase, negative bacteria -Now s/p cystoscopy, and right ureteral stent placement with Dr. Resendiz (08/27) -Patient will follow-up with urology as outpatient, patient is well-known to their practice (5) Sinus infection: - started on PO azithromycin on admission (6) Chronic diastolic (congestive) heart failure: - Continue po meds except for metolazone (which should be stopped altogeth er) Total Time Total Time Spent Total Time Spent (In Minutes): 50 Discharge Plan Discharge Items Patient Disposition: Home - Self-Care Reason For Visit: FALL, BACK PAIN, WEAK, NAUSEA Discharge Diagnosis: Fall Right obstructing ureteral renal stone, mild hydronephrosis Hyponatremia, hypokalemia Lumbar transverse process fracture Activity: Per Instructions section Lifting: No more than 5 pounds Lifting Comment: Do not lift anything heavier than 5 pounds, for several weeks Non-emergency contact: Primary Care Provider, Specialist and Urologist Call non-emergency contact if: you have any medication questions and your symptoms worsen Follow-up/Referrals: Frederick Reynaga DO [Primary Care Provider] - Diet: Heart Healthy Addtl Attending Provider Instructions: Follow-up with your primary care doctor, within 1 to 2 weeks. Do not take metolazone, as this caused severe loss of potassium and sodium for you. Per nephrology/kidney doctor, you should never take metolazone again. You can continue to take your furosemide/Lasix. For pain, take Tylenol up to 3,000 mg a day. Also take Pyridium, this can make your urine look orange. Use lidocaine patch on your lower back and right flank, this can be often obtained [id number], under the name Salonpas. Do not lift anything heavier than 5 pounds, for next several weeks. Finish antibiotic treatment (azithromycin), as prescribed. Pending Studies at Discharge: No Stand-Alone Forms: My [facility] Examify, Smoking Cessation Medications and DC Order Prescriptions: New phenazopyridine [Pyridium] 200 mg tablet 200 mg PO Q8H PRN (Reason: pain) Qty: 10 RF: 0 lidocaine 5 % Adhesive Patch,Medicated 1 patch transdermal QAM Qty: 15 RF: 0 azithromycin 250 mg Tablet 250 mg PO QAM 2 Days Qty: 2 RF: 0 Continued lorazepam [Ativan] 0.5 mg tablet 0.5 mg PO TID PRN (Reason: Anxiety) RF: 0 colesevelam [WelChol] 625 mg tablet 625 mg PO TID RF: 0 montelukast [Singulair] 10 mg tablet 10 mg PO HS RF: 0 Prilosec OTC 20 mg tablet,delayed release (DR/EC) 20 mg PO BID RF: 0 mecobalamin (vitamin B12) 1,000 mcg tablet,disintegrating 1,000 mcg PO QAM RF: 0 pregabalin [Lyrica] 150 mg capsule 150 mg PO TID Qty: 90 RF: 2 oxycodone-acetaminophen [Percocet] 5-325 mg tablet 1 tab PO Q6H PRN (Reason: pain) Qty: 30 RF: 0 furosemide 40 mg tablet 60 mg PO BID Qty: 270 RF: 3 (DME) BiPap Machine Misc See Rx Instructions .MEDSUPPLY Qty: 1 RF: 0 docusate sodium [Colace] 100 mg capsule 100 mg PO BID Qty: 60 RF: 0 Trelegy Ellipta 100-62.5-25 mcg blister with device 1 inh INH QAM Qty: 60 RF: 5 (DME) Flutter Valve Device See Rx Instructions .Route Qty: 1 RF: 0 ipratropium-albuterol 0.5 mg-3 mg(2.5 mg base)/3 mL Solution For Nebulization 3 ml INHALATION Q4H PRN (Reason: Shortness Of Breath Or Wheezing) RF: 0 pyridoxine (vitamin B6) [Vitamin B-6] 100 mg Tablet 100 mg PO BID RF: 0 Creon 24,000-76,000 -120,000 unit Capsule,Delayed Release(Dr/Ec) 4 cap PO TID RF: 0 potassium chloride 10 mEq capsule, extended release 10 meq PO BID RF: 0 valacyclovir 500 mg tablet 500 mg PO DAILY RF: 0 carvedilol 3.125 mg tablet 3.125 mg PO BID RF: 0 ropinirole 0.25 mg tablet 0.25 mg PO HS RF: 0 ferrous sulfate 325 mg (65 mg iron) tablet 325 mg PO DAILY RF: 0 Myrbetriq 50 mg tablet extended release 24 hr 50 mg PO DAILY RF: 0 Trelegy Ellipta 100-62.5-25 mcg blister with device 1 inh INHALATION DAILY RF: 0 albuterol sulfate 90 mcg/actuation aerosol powdr breath activated 2 inh INH Q6H PRN (Reason: Shortness Of Breath Or Wheezing) RF: 0 risperidone 2 mg Tablet 2 mg PO HS RF: 0 tamsulosin 0.4 mg capsule 0.4 mg PO HS Qty: 30 RF: 0 Discontinued metolazone 2.5 mg tablet 2.5 mg PO DAILY RF: 0 Discharge Orders: Discharge Order (Routine); Ordered 09/27/21 Ordered By: Kenny Easley Admission Data Admit Date/Time: 09/24/21 18:09 Attending Provider: Kenny Easley Admit Provider: Chen Swift Primary Care Provider: Frederick Reynaga Other Providers: Chen Swift ; Tim Fernandez ; Gene Ordoñez ; Sharri Ngo ; Jose Elias Garcia A
[2021-09-27] MEDS ORDERED: LIDOCAINE 5% 1 PATCH TD SCH (16:00)
[2021-09-27] MEDS ORDERED: POTASSIUM CHLORIDE 10 MEQ TABCR PO SCH (21:00)
== END 2021-09-27 16:35 | disposition home or self-care (01) | DRG 988 ==
LOC: ED 12:21 → SUATTDRO 18:09 → EDINP 18:09 → 3N 09-25 16:36

== ENCOUNTER 2022-03-06 18:21 | Inpatient (IN) ==
--- NOTE | 2022-03-06 18:41 | Emergency Department Note ---
Impression & Plan Junctional bradycardia, Left-sided chest pain ED Provider Note Name: JOSHUA ZAVALA Age: 71 Sex: F Arrives Via: Ambulance Informant: Patient, EMS ED Provider: Christopher Del Rio MD Chief Complaint: Chest pain Impression: As per impressions above Medical Decision Makin-year-old female with longstanding medical issues including hypothyroidism, hyperparathyroidism, CHF, number cytopenia, depression/anxiety, anxiety, GERD, COPD Radix for evaluation of acute onset left-sided chest pain throughout the day associated with bradycardia. EMS noted no severe junctional bradycardia with a heart rate in the 40s and she was given 1 mg IV atropine with improvement in heart rate to the low 50s. Per EMS gram call I did request she received some fluids but hold off on further atropine and given the chest pain give her a dose of fentanyl. By time she arrived she has no further chest pain her heart rate is now in the low 50s and she is in no distress. Work-up is relatively unremarkable other than the junctional bradycardia on the EKG. She was monitored for some time and I did start to slow down into the mid 40s but she was not hypotensive and had no further chest pain. Initial troponin was not elevated. Do not feel starting anticoagulation at this time is indicated. I discussed the case with the hospitalist and they will evaluate her for further management. Prior Medical Record and Triage/Nursing Notes reviewed by Me Additional history obtained from EMS and chart Differentials:Cardiac ischemia, aortic dissection, pulmonary embolism, pneumothorax, pneumonia, pericarditis, myocarditis, esophageal rupture, GERD, cholecystitis, pancreatitis, musculoskeletal, as well as other pathologies. Vital Signs: reviewed and remarkable for bradycardia Interventions: As per EMS administration of atropine, fentanyl, fluids under my medical command Labs:Reviewed and remarkable for no significant abnormalities Imagin view chest x-ray mild congestive findings EKG:Per My Interpretation: Indication chest pain. Patient EKG shows a junctional rhythm at 53 bpm with a QTC of 429. No acute ischemic findings or ectopy. When compared to EKG of May 23, 2021 the junctional rhythm is new having replaced sinus rhythm. Cardiac/Tele Monitoring: Cardiac Monitoring: An Order was placed for continuous cardiac monitoring. The monitor shows a rate of 50with a junctional bradycardic rhythm. Consults:Kathy hospitalist Plan: Disposition:Hospitalization Condition: Good History of Present Illness:71-year-old female arrives for evaluation of chest pain. Patient notes that throughout the day she has been having increasing chest pain. Notes her chest pain is left-sided and dull in nature. As the day went on it became more sharp. Not on was called. Patient notes she feels slightly lightheaded but otherwise feels all right. He does note that she has been having some stomach bloating the last few days and felt that that was consistent with her fluid overload that she is having the past. Denies any trouble breathing, falls, syncope, fevers, chills, nausea, vomiting, back pain, abdominal pain, leg swelling, headache, neck pain, rashes nor other signs or symptoms. She has not passed out or fallen. EMS arrived and noted patient to be in complete heart block with a heart rate of 40. She was given atropine 1 mg which improved her heart rate to the 50s. She continues have chest pain and was given 50 mcg of IV fentanyl. She was also given some fluid bolus in route. Patient notes that her chest pain has pretty much resolved and is only mild at the moment. She denies other symptoms at this time. She says she has no history of cardiac disease and had a cardiac cath in 2019 which was reported as unremarkable she has no history of blood clots nor she on any blood thinners. ROS: See above HPI for pertinent positives & negatives. A total of 10 systems reviewed and were otherwise negative. Past Medical History:See Below Past Surgical History:See Below Family History:See Below Social History:See Below Home Medications:See Below Allergies:See Below Vitals:Blood Pressure: 130/69, Pulse 52, RR 16, T 36.5C, O2 97% on RA Physical Exam: GENERAL: Patient is chronically unwell appearing and in minimal distress. EYES: No scleral icterus, unremarkable pupils. ENT: Mucous membranes moist, no nasal congestion. NECK: No masses appreciated, nomeningismus, trachea is midline. RESPIRATORY: No dyspnea. Clear to auscultation and equal bilaterally. No wheeze, no rhonchi. CARDIOVASCULAR: Bradycardic.No murmurs, rubs, gallops appreciated. GASTROINTESTINAL: Large, soft, easily reducible, nontender mid abdominal hernia. Abdomen soft, non-tender, no peritonitis.Bowel sounds positive.No masses appreciated. BACK: No midline tenderness, no CVA tenderness EXTREMITIES: Normal motion all extremities, no cyanosis, no edema. NEUROLOGIC: Alert and oriented, no acute motor or sensory deficits, no focal weakness, cranial nerves grossly intact. SKIN: No rash, no jaundice, no diaphoresis. PSYCH: Appropriate GCS: 15 ED Course: Times/Reassessments: Multiple reevaluations patient without any further pain heart rate remains around 50s sometimes in the low upper 40s and blood pressure remained stable. Christopher Del Rio MD Past Med/Surg History Medical History Acute pulmonary edema Acute pyelonephritis Acute respiratory failure JAVI (acute kidney injury) Asthma LAST USED RESCUE INHALER "ITS BEEN A WHILE" Atherosclerosis of both lower extremities Chronic diastolic (congestive) heart failure follows w/[facility] (Dr. Otoole) Chronic kidney disease stage 3b Chronic sinusitis Chronic urinary tract infection Chronic venous insufficiency COPD (chronic obstructive pulmonary disease) Depression GERD without esophagitis Gram-negative bacteremia H/O concussion History of anemia Hyperlipidemia per records Hypothyroidism Incisional hernia Many, on abdomen from multiple surgeries/feeding tube Lumbar transverse process fracture LVH (left ventricular hypertrophy) mild Mitral regurgitation Mild to moderate MRSA (methicillin resistant staph aureus) culture positive Left wrist -- had 3 nasal swab and all negative - patient states thru [facility] Obesity Pancreatic insufficiency chronic pancreatitis Peripheral neuropathy Port-A-Cath in place right side due to poor vascular access PUD (peptic ulcer disease) had feeding tube for 28 years and has been removed for 11 years Pulmonary hypertension mild per 07/[address] report PVC (premature ventricular contraction) Reactive hypoglycemia Secondary hyperparathyroidism Sepsis 05/2020 @ [facility], urosepsis 2/2 obstructing renal stone, S/P cysto/stent and ESWL Short bowel syndrome Sleep apnea complex sleep apnea, BIPAP, t/c nighttime O2 per pt Urinary leakage Wrist injury Scar tissue surrounding remote wrist ORIF several years ago resulting in inte rmittent inflammation per pt Surgical History H/O shoulder surgery RT arthroscopy 05/28/2021: LMA#4 atraumatic x 1 + PNB. Anesthesia postop progress note: "Pt denies SOB at this time. Block is functioning well. Vital signs stable and appropriate. Oxygenating well considering block placement and her comorbidities. Plan to discharge home with IS." History of appendectomy History of cardiac cath 08/2019 ([facility]): essentially normal coronary arteries angiographically, + luminal irregularities. no stents History of cholecystectomy History of colonoscopy (~2015) History of cystoscopy 04/20/2020: MAC. Per anesthesia postop progress note: "The patient has a complex medical history. She was given a total of 2mg IV versed and 20mg IV propofol for the procedure. Per Chantel, the DIRECTOR OF VALUATION, at the end of the procedure she noted some green bile like secretions in the patient's mouth which she immediately suctioned. Per Chantel, it did not appear that the patient aspirated as she did not cough or drop her oxygen saturation. The patient was transported to PACU where she remained hemodynamically stable with no complaints." History of esophagogastroduodenoscopy (EGD) (~2015) History of gastrointestinal surgery multiple History of joint replacement Rt thumb History of knee replacement procedure of right knee History of open reduction and internal fixation (ORIF) procedure left wrist + manipulation (01/2018) and I&D (10/2019) 12/11/2017: LMA#4, atraumatic x 1. History of partial gastrectomy History of prior ablation treatment Right LE in January 2020 and left LE 04/18/20 History of sinus surgery History of tonsillectomy and adenoidectomy History of total abdominal hysterectomy and bilateral salpingo-oophorectomy S/P right rotator cuff repair S/P ureteral stent placement Status post laser lithotripsy of ureteral calculus 04/29/2021: LMA#4 atraumatic x 1. [facility]. 03/01/2021: LMA#4 atraumatic x 1. [facility]. 02/04/2021: LMA#4 atraumatic x 1. [facility]. 07/04/2020: LMA#4 atraumatic x 1. [facility]. No issues per anesthesia postop progress notes. Family History Mother Family history of diabetes mellitus Sister Family history of diabetes mellitus Father Esophageal cancer Other Family history non-contributory No family history of adverse response to anesthesia Social History Smoking Status: Never smoker Second Hand Exposure: Yes (parents smoke); Hx Alcohol Use: No Hx Substance Use: No Preferred Language: Hungarian Communication Ability: Effective Visual Impairment: No Limitations Grinder Machine Setter Required: No Beliefs That Will Affect Care: None Current Living Situation: Alone Current Living Situation Comment: Apartment - [facility] Other Information That Helps Us Care for You: No Feels Safe at Home: Yes Safety Concerns: Feels Safe At This Time Assistive Devices: Walker Assistive Devices Comment: BiPap nightly at home Allergies Allergies Allergy/AdvReac Type Severity Reaction Status Date / Time bethanechol Allergy Intermediate RASH, Verified 02/26/22 11:18 "FEELS FUNNY" Cephalosporins Allergy Mild RASH, Verified 02/26/22 11:18 DIARRHEA ertapenem Allergy Mild RASH Verified 02/26/22 11:18 levofloxacin Allergy Mild RASH,TURNED Verified 02/26/22 11:18 RED Sulfa (Sulfonamide Allergy Mild Generalized Verified 02/26/22 11:18 Antibiotics) Rash clindamycin Allergy Unknown Unknown Verified 02/26/22 11:18 dipyridamole Allergy Unknown UNKNOWN Verified 02/26/22 11:18 droperidol Allergy Unknown Unknown Verified 02/26/22 11:18 promethazine Allergy Unknown UNKNOWN Verified 02/26/22 11:18 tobramycin Allergy Unknown UNKNOWN Verified 02/26/22 11:18 aspirin AdvReac Intermediate BLEEDING Verified 02/26/22 11:18 metolazone AdvReac Intermediate ELECTROLYTE Verified 02/26/22 11:18 ISSUES nitrofurantoin AdvReac Intermediate Vomiting Verified 02/26/22 11:18 [From Macrobid] tedizolid AdvReac Intermediate GI SYMPTOMS Verified 02/26/22 11:18 bupropion AdvReac Mild NERVOUS Verified 02/26/22 11:18 REACTION cephalexin AdvReac Mild GI SYMPTOMS Verified 02/26/22 11:18 morphine AdvReac Mild NERVOUS Verified 02/26/22 11:18 REACTION TO IT prochlorperazine AdvReac Mild NERVOUS Verified 02/26/22 11:18 REACTION Home Meds Home Medications Medication Instructions Recorded Confirmed colesevelam 625 mg tablet (WelChol) 625 mg PO TID tab 06/17/18 02/26/22 lorazepam 0.5 mg tablet (Ativan) 0.5 mg PO TID PRN tab 06/17/18 02/26/22 montelukast 10 mg tablet 10 mg PO HS 06/17/18 02/26/22 (Singulair) ipratropium 0.5 mg-albuterol 3 mg 3 ml INHALATION Q4H PRN 05/05/19 02/26/22 (2.5 mg base)/3 mL nebulization soln qzivfr-[id number]-wofjmwa 4 cap PO TID 05/05/19 02/26/22 24,000-76,000-120,000 unit capsule,delayed rel (Creon) omeprazole magnesium 20 mg 20 mg PO BID tab 05/17/19 02/26/22 tablet,delayed release (Prilosec OTC) mecobalamin (vitamin B12) 1,000 1,000 mcg PO QAM 01/21/21 02/26/22 mcg disintegrating tablet,sublingual risperidone 2 mg tablet 2 mg PO HS 02/27/21 02/26/22 albuterol sulfate 90 mcg/actuation 2 inh INH Q6H PRN 09/24/21 02/26/22 breath activated powder inhaler carvedilol 3.125 mg tablet 3.125 mg PO BID 09/24/21 02/26/22 mirabegron 50 mg tablet,extended 50 mg PO QAM 09/24/21 02/26/22 release 24 hr (Myrbetriq) ropinirole 0.25 mg tablet 0.25 mg PO HS 09/24/21 02/26/22 potassium chloride 10 mEq 10 meq PO TID cap 12/04/21 02/26/22 capsule,extended release torsemide 20 mg tablet See Rx Instructions PO DAILY tab 12/04/21 02/26/22 desipramine 50 mg tablet 50 mg PO BID tab 01/23/22 02/26/22 escitalopram oxalate 10 mg tablet 15 mg PO DAILY tab 01/23/22 02/26/22 (Lexapro) Previous Rx's Medication Instructions Recorded BiPap Machine #1 ea 07/24/20 tamsulosin 0.4 mg capsule 0.4 mg PO HS #30 cap 04/29/21 Flutter Valve #1 ea 06/19/21 oxycodone-acetaminophen 5 mg-325 1 tab PO Q6H PRN #30 tab 08/08/21 mg tablet (Percocet) phenazopyridine 200 mg tablet 200 mg PO Q8H PRN #10 tab 09/27/21 (Pyridium) levothyroxine 75 mcg tablet 75 mcg PO DAILY #90 tab 01/01/22 duloxetine 20 mg capsule,delayed 20 mg PO HS #30 cap 01/08/22 release (Cymbalta) fluticasone fur. 100 mcg-umeclid See Rx Instructions .ROUTE 01/21/22 62.5 mcg-vilant 25 mcg .COMPLEX #60 blister inhalat.powder (Trelegy Ellipta) pregabalin 150 mg capsule (Lyrica) 150 mg PO TID #90 cap 01/23/22 calcitriol 0.25 mcg capsule 0.25 mcg PO DAILY #90 cap 02/27/22 potassium, magnesium 1 ea PO BID #60 ea 03/05/22 citrate-sodium bicarb 10 mEq oral powder packet Results & Data (ED) Vital Signs Vital Signs - 24 hr 03/06/22 18:27 03/06/22 18:37 03/06/22 18:38 Temperature 36.5 C Temperature Source Oral Pulse Rate 52 L Pulse Rate [Left Apical] Pulse Rate from SpO2 Sensor Pulse Rhythm Regular Pulse Rhythm [Left Apical] Pulse Strength Normal Pulse Strength [Left Apical] Respiratory Rate 16 Respiratory Effort / Characteristics Non-Labored Spontaneous Non-Labored Respiratory Depth Normal Normal Respiratory Pattern Regular Blood Pressure 130/69 Blood Pressure [Right Arm] Blood Pressure Mean 89 Blood Pressure Mean [Right Arm] Blood Pressure Position Lying Blood Pressure Position [Right Arm] Pulse Oximetry 97 98 Oxygen Delivery Method Room Air Room Air Sepsis Recent Fever Within 48 Hours No Sepsis New/Unexplained Change in Mental Status No Sepsis Action Taken by Nursing No Action Required 03/06/22 18:40 03/06/22 18:45 03/06/22 19:00 Temperature Temperature Source Pulse Rate 49 L 47 L Pulse Rate [Left Apical] 49 L Pulse Rate from SpO2 Sensor 49 L Pulse Rhythm Pulse Rhythm [Left Apical] Regular Pulse Strength Pulse Strength [Left Apical] Normal Respiratory Rate 20 16 16 Respiratory Effort / Characteristics Non-Labored Respiratory Depth Normal Respiratory Pattern Blood Pressure 119/68 111/68 Blood Pressure [Right Arm] 117/63 Blood Pressure Mean 85 82 Blood Pressure Mean [Right Arm] 81 Blood Pressure Position Blood Pressure Position [Right Arm] Lying Pulse Oximetry 98 97 97 Oxygen Delivery Method Room Air Room Air Room Air Sepsis Recent Fever Within 48 Hours Sepsis New/Unexplained Change in Mental Status Sepsis Action Taken by Nursing 03/06/22 19:15 03/06/22 19:30 03/06/22 19:45 Temperature Temperature Source Pulse Rate 46 L 43 L 46 L Pulse Rate [Left Apical] Pulse Rate from SpO2 Sensor 46 L 43 L 46 L Pulse Rhythm Pulse Rhythm [Left Apical] Pulse Strength Pulse Strength [Left Apical] Respiratory Rate 15 15 20 Respiratory Effort / Characteristics Respiratory Depth Respiratory Pattern Blood Pressure 104/55 L 101/65 122/62 Blood Pressure [Right Arm] Blood Pressure Mean 71 77 82 Blood Pressure Mean [Right Arm] Blood Pressure Position Blood Pressure Position [Right Arm] Pulse Oximetry 98 97 97 Oxygen Delivery Method Room Air Room Air Sepsis Recent Fever Within 48 Hours Sepsis New/Unexplained Change in Mental Status Sepsis Action Taken by Nursing 03/06/22 20:00 03/06/22 20:16 03/06/22 20:30 Temperature Temperature Source Pulse Rate 44 L 55 L 44 L Pulse Rate [Left Apical] Pulse Rate from SpO2 Sensor 43 L 43 L Pulse Rhythm Pulse Rhythm [Left Apical] Pulse Strength Pulse Strength [Left Apical] Respiratory Rate 15 16 16 Respiratory Effort / Characteristics Respiratory Depth Respiratory Pattern Blood Pressure 102/54 L 119/63 95/57 L Blood Pressure [Right Arm] Blood Pressure Mean 70 81 69 Blood Pressure Mean [Right Arm] Blood Pressure Position Blood Pressure Position [Right Arm] Pulse Oximetry 98 100 100 Oxygen Delivery Method Room Air Room Air Room Air Sepsis Recent Fever Within 48 Hours Sepsis New/Unexplained Change in Mental Status Sepsis Action Taken by Nursing 03/06/22 20:46 03/06/22 21:00 Temperature Temperature Source Pulse Rate 42 L 42 L Pulse Rate [Left Apical] Pulse Rate from SpO2 Sensor 43 L 42 L Pulse Rhythm Pulse Rhythm [Left Apical] Pulse Strength Pulse Strength [Left Apical] Respiratory Rate 15 14 Respiratory Effort / Characteristics Respiratory Depth Respiratory Pattern Blood Pressure 113/58 L 113/61 Blood Pressure [Right Arm] Blood Pressure Mean 76 78 Blood Pressure Mean [Right Arm] Blood Pressure Position Blood Pressure Position [Right Arm] Pulse Oximetry 100 100 Oxygen Delivery Method Room Air Room Air Sepsis Recent Fever Within 48 Hours Sepsis New/Unexplained Change in Mental Status Sepsis Action Taken by Nursing Laboratory Data Result diagrams: 03/07/22 03:12 03/07/22 03:12 Lab Results 03/06/22 03/06/22 03/06/22 Range/Units 18:30 18:30 18:30 WBC 5.53 (4.8-10.8) K/uL RBC 4.17 L (4.2-5.4) M/uL Hgb 12.2 (12.0-16.0) g/dL Hct 37.7 (37-47) % MCV 90.4 (80-100) fL MCH 29.3 (25-34) pg MCHC 32.4 (32-36) g/dL RDW Std Deviation 44.1 (36.4-46.3) fL RDW Coeff of David 13.4 (11.5-14.5) % Plt Count 160 (130-400) K/uL MPV 10.4 (7.4-10.4) fL Immature Gran % (Auto) 0.2 % Neut % (Auto) 52.1 % Lymph % (Auto) 36.7 % [place] % (Auto) 9.2 % Eos % (Auto) 1.4 % Baso % (Auto) 0.4 % Neut # (Auto) 2.88 (1.4-6.5) K/uL Lymph # (Auto) 2.03 (1.2-3.4) K/uL [place] # (Auto) 0.51 (0.11-0.59) K/uL Eos # (Auto) 0.08 (0-0.5) K/uL Baso # (Auto) 0.02 (0-0.2) K/uL Immature Gran # (Auto) 0.01 (0.00-0.02) K/uL Sodium 129 L (136-145) mmol/L Potassium 4.6 (3.5-5.1) mmol/L Chloride 100 (98-107) mmol/L Carbon Dioxide 23 (21-32) mmol/L Anion Gap 6 (3-11) BUN 25 H (6-23) mg/dl Creatinine 1.00 (0.6-1.2) mg/dl Est Cr Clr Drug Dosing 56.5 ml/min Est GFR ( Amer) 66.6 ml/min Est GFR (Non-Af Amer) 57.4 ml/min BUN/Creatinine Ratio 25.0 H (10-20) Glucose 97 (70-99(Fasting)) mg/dl Calcium 8.4 L (8.5-10.1) mg/dl Magnesium 2.1 (1.7-2.4) mg/dl Total Bilirubin 0.3 (0.2-1.0) mg/dl Direct Bilirubin 0.1 (0-0.2) mg/dl AST 18 (13-39) U/L ALT 15 (7-52) U/L Alkaline Phosphatase 97 (34-104) U/L Troponin I High Sens 11.2 (0-14) pg/ml Total Protein 6.2 (6.0-8.3) gm/dl Albumin 3.7 (3.4-5.0) gm/dl TSH 3.134 (0.300-4.500) uIu/ml Urine Color Urine Appearance (Clear) Urine pH (4.5-7.5) Ur Specific Call (1.000-1.030) Urine Protein (Negative) Urine Glucose (UA) (Negative) Urine Ketones (Negative) Urine Blood (Negative) Urine Nitrite (Negative) Urine Bilirubin (Negative) Urine Urobilinogen (Negative) Ur Leukocyte Esterase (Negative) Urine WBC (Auto) (0-5) /hpf Urine RBC (Auto) (0-4) /hpf U Hyaline Cast (Auto) (0-5) /lpf U Epithel Cells (Auto) (0-5) /lpf Urine Bacteria (Auto) (Negative) Ur Renal Epithelial Cell SARS-CoV-2, RNA, NAAT (NEGATIVE) 03/06/22 03/06/22 Range/Units 18:34 20:20 WBC (4.8-10.8) K/uL RBC (4.2-5.4) M/uL Hgb (12.0-16.0) g/dL Hct (37-47) % MCV (80-100) fL MCH (25-34) pg MCHC (32-36) g/dL RDW Std Deviation (36.4-46.3) fL RDW Coeff of David (11.5-14.5) % Plt Count (130-400) K/uL MPV (7.4-10.4) fL Immature Gran % (Auto) % Neut % (Auto) % Lymph % (Auto) % [place] % (Auto) % Eos % (Auto) % Baso % (Auto) % Neut # (Auto) (1.4-6.5) K/uL Lymph # (Auto) (1.2-3.4) K/uL [place] # (Auto) (0.11-0.59) K/uL Eos # (Auto) (0-0.5) K/uL Baso # (Auto) (0-0.2) K/uL Immature Gran # (Auto) (0.00-0.02) K/uL Sodium (136-145) mmol/L Potassium (3.5-5.1) mmol/L Chloride (98-107) mmol/L Carbon Dioxide (21-32) mmol/L Anion Gap (3-11) BUN (6-23) mg/dl Creatinine (0.6-1.2) mg/dl Est Cr Clr Drug Dosing ml/min Est GFR ( Amer) ml/min Est GFR (Non-Af Amer) ml/min BUN/Creatinine Ratio (10-20) Glucose (70-99(Fasting)) mg/dl Calcium (8.5-10.1) mg/dl Magnesium (1.7-2.4) mg/dl Total Bilirubin (0.2-1.0) mg/dl Direct Bilirubin (0-0.2) mg/dl AST (13-39) U/L ALT (7-52) U/L Alkaline Phosphatase (34-104) U/L Troponin I High Sens (0-14) pg/ml Total Protein (6.0-8.3) gm/dl Albumin (3.4-5.0) gm/dl TSH (0.300-4.500) uIu/ml Urine Color Yellow Urine Appearance Clear (Clear) Urine pH 6.5 (4.5-7.5) Ur Specific Call 1.006 (1.000-1.030) Urine Protein Negative (Negative) Urine Glucose (UA) Negative (Negative) Urine Ketones Negative (Negative) Urine Blood Negative (Negative) Urine Nitrite Negative (Negative) Urine Bilirubin Negative (Negative) Urine Urobilinogen Negative (Negative) Ur Leukocyte Esterase 2+ H (Negative) Urine WBC (Auto) 10-30 H (0-5) /hpf Urine RBC (Auto) 0-4 (0-4) /hpf U Hyaline Cast (Auto) 1-5 (0-5) /lpf U Epithel Cells (Auto) 20-30 H (0-5) /lpf Urine Bacteria (Auto) Negative (Negative) Ur Renal Epithelial Cell Not Reportable SARS-CoV-2, RNA, NAAT NEGATIVE (NEGATIVE) Administered Medications Lipase/Protease/Amylase (Pancreaze (Lipase 16,800u) Cap) 4 cap PO TIDM CATE Stop: 04/06/22 07:59 Last Admin: 03/07/22 12:09 Dose: 4 cap Documented by: [id number] Admin: 03/07/22 08:24 Dose: 4 cap Documented by: [id number] Duloxetine HCl (Duloxetine Hcl 20 Mg Cap) 20 mg PO CATE Stop: 04/05/22 22:20 Last Admin: 03/06/22 23:44 Dose: 20 mg Documented by: [id number] Furosemide (Furosemide 40 Mg/4 Ml Vial) 40 mg IV BID CATE Stop: 04/05/22 22:20 Last Admin: 03/07/22 08:26 Dose: 40 mg Documented by: [id number] Admin: 03/06/22 23:57 Dose: 40 mg Documented by: [id number] Heparin Sodium (Porcine) (Heparin Sod 5,000 Unit/0.5 Ml Vial) 5,000 units SQ Q12 CATE Stop: 04/06/22 08:59 Last Admin: 03/07/22 08:26 Dose: 5,000 units Documented by: [id number] Levothyroxine Sodium (Levothyroxine Sodium 75 Mcg Tablet) 75 mcg PO DAILYBB [facility] Stop: 04/06/22 06:29 Last Admin: 03/07/22 05:32 Dose: 75 mcg Documented by: [id number] Montelukast Sodium (Montelukast Sodium 10 Mg Tablet) 10 mg PO [facility] Stop: 04/05/22 22:20 Last Admin: 03/06/22 23:45 Dose: 10 mg Documented by: [id number] Oxycodone/Acetaminophen (Oxycodone/Acetaminophen 5mg/325mg Tab) 1 tab PO Q6H PRN PRN Reason: pain Stop: 03/20/22 22:20 Last Admin: 03/07/22 09:51 Dose: 1 tab Documented by: [id number] Pantoprazole Sodium (Pantoprazole 40 Mg Tab) 40 mg PO BID CATE Stop: 04/05/22 22:59 Last Admin: 03/07/22 08:26 Dose: 40 mg Documented by: [id number] Admin: 03/06/22 23:46 Dose: 40 mg Documented by: [id number] Potassium Chloride (Potassium Chloride 10 Meq Tabcr) 10 meq PO TIDM CATE Stop: 04/05/22 22:59 Last Admin: 03/07/22 12:09 Dose: 10 meq Documented by: [id number] Admin: 03/07/22 08:28 Dose: 10 meq Documented by: [id number] Admin: 03/06/22 23:57 Dose: 10 meq Documented by: [id number] Pregabalin (Pregabalin 150 Mg Cap) 150 mg PO TID CATE Stop: 04/05/22 22:20 Last Admin: 03/07/22 13:56 Dose: 150 mg Documented by: [id number] Admin: 03/07/22 08:24 Dose: 150 mg Documented by: [id number] Admin: 03/06/22 23:57 Dose: 150 mg Documented by: [id number] Ropinirole HCl (Ropinirole Hcl 0.25 Mg Tablet) 0.25 mg PO HS CATE Stop: 04/05/22 22:20 Last Admin: 03/06/22 23:46 Dose: 0.25 mg Documented by: [id number] Discontinued Medications Aspirin (Aspirin 81 Mg Chew) 324 mg PO NOW STA Stop: 03/06/22 19:44 Last Admin: 03/06/22 20:51 Dose: 324 mg Documented by: [id number] Calcium Gluconate 1,000 mg/ (Dextrose) 60 mls @ 240 mls/hr IV NOW ONE Stop: 03/07/22 02:44 Last Infusion: 03/07/22 03:13 Dose: 0 mls/hr Documented by: [id number] Admin: 03/07/22 02:57 Dose: 240 mls/hr Documented by: [id number] Discharge Plan Visit Data Chief Complaint: Chest Pain Stated Complaint: complete heart block ED Provider: Christopher Del Rio Discharge Problem: Junctional bradycardia, Left-sided chest pain Patient Disposition: Admitted As Inpatient Discharge Instructions Interventions: ED Discharge Assessment Last Done: 03/06/22 21:38
--- NOTE | 2022-03-06 18:57 | XRay Report ---
XR chest 1V portable HISTORY: 71 years-old Female complete heart block, chest pain acute atypical chest pain COMPARISON: Chest radiograph 09/24/2021 TECHNIQUE: Portable AP view of the chest FINDINGS: Cardiac silhouette is enlarged. No overt pulmonary edema. Mild chronic interstitial coarsening. Uncha nged positioning of the right IJ Cetroe-y-Apej catheter. Chronic right hemidiaphragmatic elevation. N o pneumothorax, large pleural effusion or lobar airspace consolidation. Degenerative changes of the s houlders and spine. Surgical suture material and clips project over the epigastric distribution. IMPRESSION: Chronic findings as above without acute process. ACT 112: Negative or not required by law. The above report was generated using voice recognition software. It may contain grammatical, syntax o r spelling errors. Electronically signed by: Soham Kirby M.D. 03/06/2022 6:56 PM
[2022-03-06 19:16] LABS: Troponin I High Sensitivity 11.2 pg/ml (0-14)
[2022-03-06 19:36] LABS: Albumin Level 3.7 gm/dl (3.4-5.0); Basophils # (auto) 0.02 K/uL (0-0.2); Basophils % (auto) 0.4 %; Bilirubin Direct 0.1 mg/dl (0-0.2); Bilirubin,Total 0.3 mg/dl (0.2-1.0); Calcium 8.4 mg/dl (8.5-10.1); Creatinine Clr Calc Pharmacy 56.5 ml/min; Eosinophils # (auto) 0.08 K/uL (0-0.5); Eosinophils % (auto) 1.4 %; Est GFR (African American) 66.6 ml/min; Est GFR (Non-African American) 57.4 ml/min; Hematocrit (blood only) 37.7 % (37-47); Hemoglobin 12.2 g/dL (12.0-16.0); Immature Granulocytes # (auto) 0.01 K/uL (0.00-0.02); Immature Granulocytes % (auto) 0.2 %; Lymphocytes # (auto) 2.03 K/uL (1.2-3.4); Lymphocytes % (auto) 36.7 %; Magnesium 2.1 mg/dl (1.7-2.4); Mean Corpuscular Hemoglobin 29.3 pg (25-34); Mean Corpuscular Hgb Conc 32.4 g/dL (32-36); Mean Corpuscular Volume 90.4 fL (80-100); Mean Platelet Volume 10.4 fL (7.4-10.4); Monocytes # (auto) 0.51 K/uL (0.11-0.59); Monocytes % (auto) 9.2 %; Neutrophils # (auto) 2.88 K/uL (1.4-6.5); Neutrophils % (auto) 52.1 %; Platelet Count 160 K/uL (130-400); Potassium 4.6 mmol/L (3.5-5.1); RDW Coefficient of Variation 13.4 % (11.5-14.5); RDW Standard Deviation 44.1 fL (36.4-46.3); Red Blood Count 4.17 M/uL (4.2-5.4); Total Protein 6.2 gm/dl (6.0-8.3); White Blood Count 5.53 K/uL (4.8-10.8)
[2022-03-06] MEDS ORDERED: ASPIRIN 81 MG CHEW PO STA (19:43)
--- NOTE | 2022-03-06 20:08 | History & Physical Report ---
Date of Service March 06, 2022 Assessment & Plan (1) Junctional bradycardia: (2) Chest pain: (3) Acute on chronic diastolic CHF (congestive heart failure): (4) Complex sleep apnea syndrome: Plan: Junctional bradycardia- HR in low 40s , currently asymptomatic. Denies any new medications. Denies any tick bites. - S/p 1 dose of 1 mg atropine by EMS. TSH normal, electrolytes normal - Check for lyme disease. Hold all AV froylan blockers and medications which can worsen bradycardia - Will monitor on tele, Hold coreg and other medications that can worsen bradycardia like her antipsychotic and antidepressants. - Have atropine and pacer pad in place in case she has symptomatic bradycardia - Check echo - Consult cardio- follows Dr Otoole - Will keep npo overnight incase she might need procedure in am in case her bradycardia worsens and might need a pacer Chest pain- resolved, trop x1 negative. ?related to bradycardia. Had stress test and cath couple years ago which was negative. Will trend trop and monitor on tele. Repeat echo and ekg. Acute on chronic diastolic CHF- complains of weight gain, abd bloating, shortens of breath with exertion. Bibasilar crackles +. Baseline wt of 197 lb, currently 203 lb. Ran out of torsemide yesterday. Also gets iv lasix via port as neeeded - Will start on CHF protocol with iv lasix bid, daily weight, strict I and Os. Repeat echo. Check BNP. Hyponatremia- NA 129. ?hypervolemic. Giving lasix and on fluid restriction. R echeck in am CKD3a- Cr at baseline of around 1. Monitor with diuresis COPD- not in exacerbation, continue trelegy LARRY- on BIPAP 09/10 per patient. continue GERD- on PPI Depression/anxiety- continue cymbalta. Holding her other antidepressants or antipsychotic which can worsen bradycardia. Postsurgical malabsorption- holding colesevelam as it can worsen bradycardia Abnormal UA- denies any urinary symptoms. Could be contamination. Hold off on antibiotics for now, maribel given her multiple antibiotic allergies. DVT ppx- sc heparin Dispo- PCU on tele Full code History of Present Illness Chief Complaint: chest pain, bradycardia Primary Care Provider: Frederick Reynaga DO 71 year old female with h/o chronic diastolic CHF, COPD, LARRY on bipap, malabsorption syndrome and other medical conditions as below presented to the ED with bradycardia, dyspnea on exertion. States she was in her usual state of health until yesterday. When she woke up this morning, she did not feel right. She thought she needed more lasix. She was feeling short of breath with exertion, left sided chest pain and some dizziness. She had increase in her abdominal bloating and some leg swelling. She takes torsemide bid but ran out yesterday. She called her home nurse to get iv lasix through her port. Her RN found her to be bradycardic in 40s, called PCP and was then recommended ED evaluation. She was given 1 mg atropine and 50mcg fentanly via port by EMS. She was not given lasix. She came to the ED. She states she felt better after the medications and her symptoms completely resolved although her HR was still in low 40s in the ED. She was found to have junctional bradycardia. Trop x1 negative. She was comfortably lying in bed, not in any distress and felt fine during my encounter. States she follows Dr Otoole but has not seen him in a while. Denies any bradycardia or cardiac issues before other than her CHF. Denies any tick bites. Allergies Allergy/AdvReac Type Severity Reaction Status Date / Time bethanechol Allergy Intermediate RASH, Verified 02/26/22 11:18 "FEELS FUNNY" Cephalosporins Allergy Mild RASH, Verified 02/26/22 11:18 DIARRHEA ertapenem Allergy Mild RASH Verified 02/26/22 11:18 levofloxacin Allergy Mild RASH,TURNED Verified 02/26/22 11:18 RED Sulfa (Sulfonamide Allergy Mild Generalized Verified 02/26/22 11:18 Antibiotics) Rash clindamycin Allergy Unknown Unknown Verified 02/26/22 11:18 dipyridamole Allergy Unknown UNKNOWN Verified 02/26/22 11:18 droperidol Allergy Unknown Unknown Verified 02/26/22 11:18 promethazine Allergy Unknown UNKNOWN Verified 02/26/22 11:18 tobramycin Allergy Unknown UNKNOWN Verified 02/26/22 11:18 aspirin AdvReac Intermediate BLEEDING Verified 02/26/22 11:18 metolazone AdvReac Intermediate ELECTROLYTE Verified 02/26/22 11:18 ISSUES nitrofurantoin AdvReac Intermediate Vomiting Verified 02/26/22 11:18 [From Macrobid] tedizolid AdvReac Intermediate GI SYMPTOMS Verified 02/26/22 11:18 bupropion AdvReac Mild NERVOUS Verified 02/26/22 11:18 REACTION cephalexin AdvReac Mild GI SYMPTOMS Verified 02/26/22 11:18 morphine AdvReac Mild NERVOUS Verified 02/26/22 11:18 REACTION TO IT prochlorperazine AdvReac Mild NERVOUS Verified 02/26/22 11:18 REACTION Home Medications Medication Instructions Recorded Confirmed Type colesevelam 625 mg tablet (WelChol) 625 mg PO TID tab 06/17/18 02/26/22 History lorazepam 0.5 mg tablet (Ativan) 0.5 mg PO TID PRN tab 06/17/18 02/26/22 History montelukast 10 mg tablet 10 mg PO HS 06/17/18 02/26/22 History (Singulair) ipratropium 0.5 mg-albuterol 3 mg 3 ml INHALATION Q4H PRN 05/05/19 02/26/22 History (2.5 mg base)/3 mL nebulization soln puexma-kvihmbqn-bhchhoy 4 cap PO TID 05/05/19 02/26/22 History 24,000-76,000-120,000 unit capsule,delayed rel (Creon) omeprazole magnesium 20 mg 20 mg PO BID tab 05/17/19 02/26/22 History tablet,delayed release (Prilosec OTC) BiPap Machine #1 ea 07/24/20 02/26/22 Rx mecobalamin (vitamin B12) 1,000 1,000 mcg PO QAM 01/21/21 02/26/22 History mcg disintegrating tablet,sublingual risperidone 2 mg tablet 2 mg PO HS 02/27/21 02/26/22 History tamsulosin 0.4 mg capsule 0.4 mg PO HS #30 cap 04/29/21 02/26/22 Rx Flutter Valve #1 ea 06/19/21 02/26/22 Rx oxycodone-acetaminophen 5 mg-325 1 tab PO Q6H PRN #30 tab 08/08/21 02/26/22 Rx mg tablet (Percocet) albuterol sulfate 90 mcg/actuation 2 inh INH Q6H PRN 09/24/21 02/26/22 History breath activated powder inhaler carvedilol 3.125 mg tablet 3.125 mg PO BID 09/24/21 02/26/22 History mirabegron 50 mg tablet,extended 50 mg PO QAM 09/24/21 02/26/22 History release 24 hr (Myrbetriq) ropinirole 0.25 mg tablet 0.25 mg PO HS 09/24/21 02/26/22 History phenazopyridine 200 mg tablet 200 mg PO Q8H PRN #10 tab 09/27/21 02/26/22 Rx (Pyridium) potassium chloride 10 mEq 10 meq PO TID cap 12/04/21 02/26/22 History capsule,extended release torsemide 20 mg tablet See Rx Instructions PO DAILY tab 12/04/21 02/26/22 History levothyroxine 75 mcg tablet 75 mcg PO DAILY #90 tab 01/01/22 02/26/22 Rx duloxetine 20 mg capsule,delayed 20 mg PO HS #30 cap 01/08/22 02/26/22 Rx release (Cymbalta) fluticasone fur. 100 mcg-umeclid See Rx Instructions .ROUTE 01/21/22 02/26/22 Rx 62.5 mcg-vilant 25 mcg .COMPLEX #60 blister inhalat.powder (Trelegy Ellipta) desipramine 50 mg tablet 50 mg PO BID tab 01/23/22 02/26/22 History escitalopram oxalate 10 mg tablet 15 mg PO DAILY tab 01/23/22 02/26/22 History (Lexapro) pregabalin 150 mg capsule (Lyrica) 150 mg PO TID #90 cap 01/23/22 02/26/22 Rx calcitriol 0.25 mcg capsule 0.25 mcg PO DAILY #90 cap 02/27/22 Rx potassium, magnesium 1 ea PO BID #60 ea 03/05/22 Rx citrate-sodium bicarb 10 mEq oral powder packet Past Med/Surg History Medical History Acute pulmonary edema Acute pyelonephritis Acute respiratory failure JAVI (acute kidney injury) Asthma LAST USED RESCUE INHALER "ITS BEEN A WHILE" Atherosclerosis of both lower extremities Chronic diastolic (congestive) heart failure follows w/[facility] (Dr. Otoole) Chronic kidney disease stage 3b Chronic sinusitis Chronic urinary tract infection Chronic venous insufficiency COPD (chronic obstructive pulmonary disease) Depression GERD without esophagitis Gram-negative bacteremia H/O concussion History of anemia Hyperlipidemia per records Hypothyroidism Incisional hernia Many, on abdomen from multiple surgeries/feeding tube Lumbar transverse process fracture LVH (left ventricular hypertrophy) mild Mitral regurgitation Mild to moderate MRSA (methicillin resistant staph aureus) culture positive Left wrist -- had 3 nasal swab and all negative - patient states thru [facility] Obesity Pancreatic insufficiency chronic pancreatitis Peripheral neuropathy Port-A-Cath in place right side due to poor vascular access PUD (peptic ulcer disease) had feeding tube for 28 years and has been removed for 11 years Pulmonary hypertension mild per 07/[address] report PVC (premature ventricular contraction) Reactive hypoglycemia Secondary hyperparathyroidism Sepsis 05/2020 @ [facility], urosepsis 2/2 obstructing renal stone, S/P cysto/stent and ESWL Short bowel syndrome Sleep apnea complex sleep apnea, BIPAP, t/c nighttime O2 per pt Urinary leakage Wrist injury Scar tissue surrounding remote wrist ORIF several years ago resulting in intermittent inflammation per pt Surgical History H/O shoulder surgery RT arthroscopy 05/28/2021: LMA#4 atraumatic x 1 + PNB. Anesthesia postop progress note: "Pt denies SOB at this time. Block is functioning well. Vital signs stable and appropriate. Oxygenating well considering block placement and her comorbidities. Plan to discharge home with IS." History of appendectomy History of cardiac cath 08/2019 ([facility]): essentially normal coronary arteries angiographically, + luminal irregularities. no stents History of cholecystectomy History of colonoscopy (~2015) History of cystoscopy 04/20/2020: MAC. Per anesthesia postop progress note: "The patient has a complex medical history. She was given a total of 2mg IV versed and 20mg IV propofol for the procedure. Per Chantel, the CHIEF SCIENTIFIC OFFICER, at the end of the procedure she noted some green bile like secretions in the patient's mouth which she immediately suctioned. Per Chantel, it did not appear that the patient aspirated as she did not cough or drop her oxygen saturation. The patient was transp orted to PACU where she remained hemodynamically stable with no complaints." History of esophagogastroduodenoscopy (EGD) (~2015) History of gastrointestinal surgery multiple History of joint replacement Rt thumb History of knee replacement procedure of right knee History of open reduction and internal fixation (ORIF) procedure left wrist + manipulation (01/2018) and I&D (10/2019) 12/11/2017: LMA#4, atraumatic x 1. History of partial gastrectomy History of prior ablation treatment Right LE in January 2020 and left LE 04/18/20 History of sinus surgery History of tonsillectomy and adenoidectomy History of total abdominal hysterectomy and bilateral salpingo-oophorectomy S/P right rotator cuff repair S/P ureteral stent placement Status post laser lithotripsy of ureteral calculus 04/29/2021: LMA#4 atraumatic x 1. [facility]. 03/01/2021: LMA#4 atraumatic x 1. [facility] [place]. 02/04/2021: LMA#4 atraumatic x 1. [facility]. 07/04/2020: LMA#4 atraumatic x 1. [facility]. No issues per anesthesia postop progress notes. Family History Mother Family history of diabetes mellitus Sister Family history of diabetes mellitus Father Esophageal cancer Other Family history non-contributory No family history of adverse response to anesthesia Social History Smoking Status: Former smoker Second Hand Exposure: Yes (parents smoke); Hx Alcohol Use: Yes Alcohol type: beer Preferred Language: Tunisian Communication Ability: Effective Visual Impairment: No Limitations Circulation Clerk Required: No Beliefs That Will Affect Care: None Current Living Situation: Alone Current Living Situation Comment: [facility] ([facility]) Feels Safe at Home: Yes Assistive Devices: Glasses, Nebulizer and Walker Review of Systems Review of Systems: All systems reviewed & are unremarkable except as noted in Subjective Physical Exam Physical Exam: General: Lying comfortably in bed, not in distress, on room air HEENT: EOMI, BORA, MMM Chest: Rt sided Port. Clear breath sounds bilaterally with bilateral crackles more in bases CVS: Bradycardic but regular, no murmur Abdomen: Soft, non tender, mildly distended, normal bowel sounds Neuro: Awake, alert, oriented, conversing well, non focal Extremities: No cyanosis, clubbing, mild RLE edema Results & Data Results & Data ([facility]) Vital Signs (Past 12 Hours) Vital Signs Temp Pulse Pulse Resp BP BP Pulse Ox 03/06/22 19:00 47 L 16 111/68 97 03/06/22 18:45 49 L 16 119/68 97 03/06/22 18:40 49 L 20 117/63 98 03/06/22 18:38 98 03/06/22 18:27 36.5 C 52 L 16 130/69 97 Laboratory Results Short CBC 03/06/22 Range/Units 18:30 WBC 5.53 (4.8-10.8) K/uL Hgb 12.2 (12.0-16.0) g/dL Hct 37.7 (37-47) % Plt Count 160 (130-400) K/uL BMP 03/06/22 18:30 Sodium 129 L Potassium 4.6 Chloride 100 Carbon Dioxide 23 BUN 25 H Creatinine 1.00 Glucose 97 Calcium 8.4 L Liver Function 03/06/22 Range/Units 18:30 Total Bilirubin 0.3 (0.2-1.0) mg/dl Direct Bilirubin 0.1 (0-0.2) mg/dl AST 18 (13-39) U/L ALT 15 (7-52) U/L Alkaline Phosphatase 97 (34-104) U/L Albumin 3.7 (3.4-5.0) gm/dl Urine 03/06/22 Range/Units 20:20 Urine Color Yellow Urine Appearance Clear (Clear) Urine pH 6.5 (4.5-7.5) Ur Specific [place] 1.006 (1.000-1.030) Urine Protein Negative (Negative) Urine Glucose (UA) Negative (Negative) Diagnostic Findings Chest X-Ray 03/06/22 18:18 XR chest 1V portable HISTORY: 71 years-old Female complete heart block, chest pain acute atypical chest pain COMPARISON: Chest radiograph 09/24/2021 TECHNIQUE: Portable AP view of the chest FINDINGS: Cardiac silhouette is enlarged. No overt pulmonary edema. Mild chronic interstitial coarsening. Unchanged positioning of the right IJ Nbkihi-t-Onqt catheter. Chronic right hemidiaphragmatic elevation. No pneumothorax, large pleural effusion or lobar airspace consolidation. Degenerative changes of the shoulders and spine. Surgical suture material and clips project over the epigastric distribution. IMPRESSION: Chronic findings as above without acute process. ACT 112: Negative or not required by law. The above report was generated using voice recognition software. It may contain grammatical, syntax or spelling errors. Electronically signed by: Soham Kirby M.D. 03/06/2022 6:56 PM
[2022-03-06 21:02] LABS: Appearance Urine Clear (Clear); Bilirubin Urine Negative (Negative); Blood Urine Negative (Negative); Color Urine Yellow; Glucose Urine UA Negative (Negative); Ketones Urine Negative (Negative); Leukocyte Esterase Urine 2+ (Negative); Nitrite Urine Negative (Negative); Protein Urine Negative (Negative); Specific Gravity Urine 1.006 (1.000-1.030); Urobilinogen Urine Negative (Negative); pH Urine 6.5 (4.5-7.5)
[2022-03-06] MEDS ORDERED: ATROPINE SULFATE 0.1 MG/ML 10ML SYR IV PRN (21:07)
[2022-03-06 21:12] LABS: RBC Urine Automated 0-4 /hpf (0-4)
[2022-03-06 21:13] LABS: Bacteria Urine Automated Negative (Negative); Epithelial Cell Urine Auto 20-30 /lpf (0-5)
[2022-03-06] MEDS ORDERED: ALBUT/IPRATROP 3MG/0.5MG NEB 3 ML VIAL INH PRN (22:21)
[2022-03-06] MEDS ORDERED: ALBUTEROL HFA 8 GM INHALER INH PRN (22:52)
[2022-03-06] MEDS ORDERED: HEPARIN 100 UNIT/ML 5ML FLUSH FLUSH PRN (23:25)
[2022-03-06] MEDS: DULoxetine HCL 20 MG CAP PO SCH (23:44)
[2022-03-06] MEDS: MONTELUKAST SODIUM 10 MG TABLET PO SCH (23:45)
[2022-03-06] MEDS: PANTOprazole 40 MG TAB PO SCH (23:46)
[2022-03-06] MEDS: rOPINIRole HCL 0.25 MG TABLET PO SCH (23:46)
[2022-03-06] MEDS: PREGABALIN 150 MG CAP PO SCH (23:57)
[2022-03-06] MEDS: FUROSEMIDE 40 MG/4 ML VIAL IV SCH (23:57)
[2022-03-06] MEDS: POTASSIUM CHLORIDE 10 MEQ TABCR PO SCH (23:57)
[2022-03-07] MEDS ORDERED: CALCIUM GLUCONATE 10% 1,000 MG in DEXTROSE 5% 50 ML IV ONE (02:30)
[2022-03-07] MEDS ORDERED: STAT IV STA (02:30)
[2022-03-07 03:35] LABS: Hemoglobin 12.4 g/dL (12.0-16.0); Mean Corpuscular Hemoglobin 30.7 pg (25-34); Mean Corpuscular Hgb Conc 33.5 g/dL (32-36); Mean Corpuscular Volume 91.6 fL (80-100); Mean Platelet Volume 10.1 fL (7.4-10.4); Platelet Count 161 K/uL (130-400); RDW Coefficient of Variation 13.5 % (11.5-14.5); RDW Standard Deviation 44.5 fL (36.4-46.3); Red Blood Count 4.04 M/uL (4.2-5.4); White Blood Count 5.32 K/uL (4.8-10.8)
[2022-03-07 04:02] LABS: Albumin Globulin Ratio 1.4 (0.9-2); Albumin Level 3.6 gm/dl (3.4-5.0); BUN Creatinine Ratio 24.2 (10-20); Bilirubin,Total 0.3 mg/dl (0.2-1.0); Calcium 8.7 mg/dl (8.5-10.1); Est GFR (African American) 70.8 ml/min; Est GFR (Non-African American) 61.1 ml/min; Globulin 2.5 gm/dl (2.5-4.0); Magnesium 2.1 mg/dl (1.7-2.4); Potassium 3.8 mmol/L (3.5-5.1); Total Protein 6.1 gm/dl (6.0-8.3)
[2022-03-07] MEDS: LEVOTHYROXINE SODIUM 75 MCG TABLET PO SCH (05:32)
[2022-03-07] MEDS: PREGABALIN 150 MG CAP PO SCH ×3 (08:24→20:44)
[2022-03-07] MEDS: PANCREAZE (LIPASE 16,800U) CAP PO SCH ×3 (08:24→17:10)
[2022-03-07] MEDS: HEPARIN SOD 5,000 UNIT/0.5 ML VIAL SQ SCH ×2 (08:26→20:43)
[2022-03-07] MEDS: FUROSEMIDE 40 MG/4 ML VIAL IV SCH ×2 (08:26→20:44)
[2022-03-07] MEDS: PANTOprazole 40 MG TAB PO SCH ×2 (08:26→20:44)
[2022-03-07] MEDS: POTASSIUM CHLORIDE 10 MEQ TABCR PO SCH ×3 (08:28→17:10)
[2022-03-07] MEDS: oxyCODONE/ACETAMINOPHEN 5mg/325mg TAB PO PRN ×2 (09:51→18:34)
--- NOTE | 2022-03-07 13:07 | Cardiology Consultation ---
Date of Consultation March 07, 2022 Assessment & Plan (1) Junctional bradycardia: 2. Acute on chronic diastolic heart failure 3. Hyponatremia, chronic kidney disease stage 3 4. Malabsorption syndrome 5. Obstructive sleep apnea 6. Chronic pain syndrome 7. Mild AI, mild to moderate MR Patient admitted with acute onset chest pain/shortness of breath with reported heart rate in the 40s and junctional bradycardia on admission. TSH, electrolytes normal, no evidence of ischemia. Currently patient back in sinus rhythm and presenting symptoms resolved. Does have some evidence of pulmonary/systemic venous congestion on exam. No prior similar episodes and was on beta-isaac at time of event. For now would hold off on permanent pacemaker and continue to monitor on telemetry. Continue diuresis for acute heart failure. Recommendations: Follow-up on echo, Lyme studies Continue to monitor on telemetry overnight Continue to hold prior carvedilol Continue current twice daily IV diuretics. Possible transition to p.o. diuretics tomorrow Will continue to follow History of Present Illness Attending Physician: Padmini Lomas MD History of Present Illness Ms. Braswell is a pleasant 70-year-old woman chronic venous insufficiency and HFpEF known to me from the outpatient setting. Seen today on telemetry floor after admitted with chest pain/shortness of breath and junctional bradycardia. 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 Yesterday evening developed acute onset chest pain and shortness of breath. EMS contacted and per report had heart rates in the 40s. Given atropine x1 with increasing heart rate to the 50s and improvement in symptoms. On arrival to ED appeared to be in narrow complex junctional rhythm in the 50s with no dynamic ST changes. BNP elevated 836. Chest x-ray without acute process. HsTrop flat, negative x4 Around 2 AM on telemetry converted from junctional rhythm back to sinus rhythm and has maintained sinus rhythm since with heart rates in the 60s to 70s. Prior cardiovascular history Patient was initially diagnosed with chronic diastolic heart failure in the setting of mild volume overload noted while at patient's wound clinic back in June 2016. She was hospitalized and underwent a transthoracic echocardiogram at that time which showed preserved LV function and grade 1 diastolic dysfunction with no significant valvular pathology. She has had frequent, longstanding atypical chest pain. After multiple attempts was eventually able to undergo Lexiscan SPECT in March of 2017 which showed normal myocardial normal size and function. In August 2019 she was seen in the office with exertional chest pain. She underwent cardiac catheterization which revealed essentially normal coronary arteries. Underwent right GSV RFA 01/2020, left GSV VenaSeal 04/2020 Social history: She has been on disability since late 80s due to her GI issues. Prior to that had worked in [place]. She denies ever using significant tobacco, alcohol or illicit drugs. Prior cardiovascular studies: Echo 07/2021: LVEF 60%, mild LVH, mild to moderate MR, mild AI Cardiac cath 08/17/19: Essentially normal coronary arteries angiographically. Normal left and right-sided filling pressures. Normal pulmonary artery pressures. Normal cardiac output Dobutamine stress echo (09/2016): Nondiagnostic as unable to achieve target heart rate. With dobutamine only achieved 61 percent MPHR. Normal resting LV function Pharmacologic SPECT (07/2016): Test unable to be obtained due to infiltrated IV. Echo (06/2016): Normal LV function, no regional wall motion abnormalities noted, EF 55-60%, trace mild AI, grade 1 diastolic dysfunction Allergies Allergy/AdvReac Type Severity Reaction Status Date / Time bethanechol Allergy Intermediate RASH, Verified 02/26/22 11:18 "FEELS FUNNY" Cephalosporins Allergy Mild RASH, Verified 02/26/22 11:18 DIARRHEA ertapenem Allergy Mild RASH Verified 02/26/22 11:18 levofloxacin Allergy Mild RASH,TURNED Verified 02/26/22 11:18 RED Sulfa (Sulfonamide Allergy Mild Generalized Verified 02/26/22 11:18 Antibiotics) Rash clindamycin Allergy Unknown Unknown Verified 02/26/22 11:18 dipyridamole Allergy Unknown UNKNOWN Verified 02/26/22 11:18 droperidol Allergy Unknown Unknown Verified 02/26/22 11:18 promethazine Allergy Unknown UNKNOWN Verified 02/26/22 11:18 tobramycin Allergy Unknown UNKNOWN Verified 02/26/22 11:18 aspirin AdvReac Intermediate BLEEDING Verified 02/26/22 11:18 metolazone AdvReac Intermediate ELECTROLYTE Verified 02/26/22 11:18 ISSUES nitrofurantoin AdvReac Intermediate Vomiting Verified 02/26/22 11:18 [From Macrobid] tedizolid AdvReac Intermediate GI SYMPTOMS Verified 02/26/22 11:18 bupropion AdvReac Mild NERVOUS Verified 02/26/22 11:18 REACTION cephalexin AdvReac Mild GI SYMPTOMS Verified 02/26/22 11:18 morphine AdvReac Mild NERVOUS Verified 02/26/22 11:18 REACTION TO IT prochlorperazine AdvReac Mild NERVOUS Verified 02/26/22 11:18 REACTION Home Medications Medication Instructions Recorded Confirmed Type colesevelam 625 mg tablet (WelChol) 625 mg PO TID tab 06/17/18 02/26/22 History lorazepam 0.5 mg tablet (Ativan) 0.5 mg PO TID PRN tab 06/17/18 02/26/22 History montelukast 10 mg tablet 10 mg PO HS 06/17/18 02/26/22 History (Singulair) ipratropium 0.5 mg-albuterol 3 mg 3 ml INHALATION Q4H PRN 05/05/19 02/26/22 History (2.5 mg base)/3 mL nebulization soln [id number] 4 cap PO TID 05/05/19 02/26/22 History 24,000-76,000-120,000 unit capsule,delayed rel (Creon) omeprazole magnesium 20 mg 20 mg PO BID tab 05/17/19 02/26/22 History tablet,delayed release (Prilosec OTC) BiPap Machine #1 ea 07/24/20 02/26/22 Rx mecobalamin (vitamin B12) 1,000 1,000 mcg PO QAM 01/21/21 02/26/22 History mcg disintegrating tablet,sublingual risperidone 2 mg tablet 2 mg PO HS 02/27/21 02/26/22 History tamsulosin 0.4 mg capsule 0.4 mg PO HS #30 cap 04/29/21 02/26/22 Rx Flutter Valve #1 ea 06/19/21 02/26/22 Rx oxycodone-acetaminophen 5 mg-325 1 tab PO Q6H PRN #30 tab 08/08/21 02/26/22 Rx mg tablet (Percocet) albuterol sulfate 90 mcg/actuation 2 inh INH Q6H PRN 09/24/21 02/26/22 History breath activated powder inhaler carvedilol 3.125 mg tablet 3.125 mg PO BID 09/24/21 02/26/22 History mirabegron 50 mg tablet,extended 50 mg PO QAM 09/24/21 02/26/22 History release 24 hr (Myrbetriq) ropinirole 0.25 mg tablet 0.25 mg PO HS 09/24/21 02/26/22 History phenazopyridine 200 mg tablet 200 mg PO Q8H PRN #10 tab 09/27/21 02/26/22 Rx (Pyridium) potassium chloride 10 mEq 10 meq PO TID cap 12/04/21 02/26/22 History capsule,extended release torsemide 20 mg tablet See Rx Instructions PO DAILY tab 12/04/21 02/26/22 History levothyroxine 75 mcg tablet 75 mcg PO DAILY #90 tab 01/01/22 02/26/22 Rx duloxetine 20 mg capsule,delayed 20 mg PO HS #30 cap 01/08/22 02/26/22 Rx release (Cymbalta) fluticasone fur. 100 mcg-umeclid See Rx Instructions .ROUTE 01/21/22 02/26/22 Rx 62.5 mcg-vilant 25 mcg .COMPLEX #60 blister inhalat.powder (Trelegy Ellipta) desipramine 50 mg tablet 50 mg PO BID tab 01/23/22 02/26/22 History escitalopram oxalate 10 mg tablet 15 mg PO DAILY tab 01/23/22 02/26/22 History (Lexapro) pregabalin 150 mg capsule (Lyrica) 150 mg PO TID #90 cap 01/23/22 02/26/22 Rx calcitriol 0.25 mcg capsule 0.25 mcg PO DAILY #90 cap 02/27/22 Rx potassium, magnesium 1 ea PO BID #60 ea 03/05/22 Rx citrate-sodium bicarb 10 mEq oral powder packet Patient History Medical History Acute pulmonary edema Acute pyelonephritis Acute respiratory failure JAVI (acute kidney injury) Asthma LAST USED RESCUE INHALER "ITS BEEN A WHILE" Atherosclerosis of both lower extremities Chronic diastolic (congestive) heart failure follows w/[facility] (Dr. Otoole) Chronic kidney disease stage 3b Chronic sinusitis Chronic urinary tract infection Chronic venous insufficiency COPD (chronic obstructive pulmonary disease) Depression GERD without esophagitis Gram-negative bacteremia H/O concussion History of anemia Hyperlipidemia per records Hypothyroidism Incisional hernia Many, on abdomen from multiple surgeries/feeding tube Lumbar transverse process fracture LVH (left ventricular hypertrophy) mild Mitral regurgitation Mild to moderate MRSA (methicillin resistant staph aureus) culture positive Left wrist -- had 3 nasal swab and all negative - patient states thru [facility] Obesity Pancreatic insufficiency chronic pancreatitis Peripheral neuropathy Port-A-Cath in place right side due to poor vascular access PUD (peptic ulcer disease) had feeding tube for 28 years and has been removed for 11 years Pulmonary hypertension mild per 07/[address] report PVC (premature ventricular contraction) Reactive hypoglycemia Secondary hyperparathyroidism Sepsis 05/2020 @ [facility], urosepsis 2/2 obstructing renal stone, S/P cysto/stent and ESWL Short bowel syndrome Sleep apnea complex sleep apnea, BIPAP, t/c nighttime O2 per pt Urinary leakage Wrist injury Scar tissue surrounding remote wrist ORIF several years ago resulting in intermittent inflammation per pt Surgical History H/O shoulder surgery RT arthroscopy 05/28/2021: LMA#4 atraumatic x 1 + PNB. Anesthesia postop progress note: "Pt denies SOB at this time. Block is functioning well. Vital signs stable and appropriate. Oxygenating well considering block placement and her comorbidities. Plan to discharge home with IS." History of appendectomy History of cardiac cath 08/2019 ([facility]): essentially normal coronary arteries angiographically, + luminal irregularities. no stents History of cholecystectomy History of colonoscopy (~2015) History of cystoscopy 04/20/2020: MAC. Per anesthesia postop progress note: "The patient has a complex medical history. She was given a total of 2mg IV versed and 20mg IV propofol for the procedure. Per Chantel, the RAT TRAPPER, at the end of the procedure she noted some green bile like secretions in the patient's mouth which she immediately suctioned. Per Chantel, it did not appear that the patient aspirated as she did not cough or drop her oxygen saturation. The patient was transported to PACU where she remained hemodynamically stable with no complaints." History of esophagogastroduodenoscopy (EGD) (~2016) History of gastrointestinal surgery multiple History of joint replacement Rt thumb History of knee replacement procedure of right knee History of open reduction and internal fixation (ORIF) procedure left wrist + manipulation (01/2018) and I&D (10/2019) 12/11/2017: LMA#4, atraumatic x 1. History of partial gastrectomy History of prior ablation treatment Right LE in January 2020 and left LE 04/18/20 History of sinus surgery History of tonsillectomy and adenoidectomy History of total abdominal hysterectomy and bilateral salpingo-oophorectomy S/P right rotator cuff repair S/P ureteral stent placement Status post laser lithotripsy of ureteral calculus 04/29/2021: LMA#4 atraumatic x 1. [facility]. 03/01/2021: LMA#4 atraumatic x 1. [facility]. 02/04/2021: LMA#4 atraumatic x 1. [facility]. 07/04/2020: LMA#4 atraumatic x 1. [facility]. No issues per anesthesia postop progress notes. Family History Mother Family history of diabetes mellitus Sister Family history of diabetes mellitus Father Esophageal cancer Other Family history non-contributory No family history of adverse response to anesthesia Social History Smoking Status: Never smoker Second Hand Exposure: Yes (parents smoke); Hx Alcohol Use: No Hx Substance Use: No Preferred Language: [place]ese Communication Ability: Effective Visual Impairment: No Limitations Rub[employer] Goods Finisher Required: No Beliefs That Will Affect Care: None Current Living Situation: Alone Current Living Situation Comment: [facility] ([facility]) Other Information That Helps Us Care for You: No Feels Safe at Home: Yes Safety Concerns: Feels Safe At This Time Assistive Devices: Walker Assistive Devices Comment: BiPap nightly at home Review of Systems Review of Systems: All systems reviewed & are unremarkable except as noted in HPI & below Physical Exam Physical Exam: General: Comfortable HEENT: Sclerae anicteric, face appears flushed Lungs: Few crackles at bases bilaterally Cardiac: Regular rate and rhythm, 6 holosystolic murmur at the apex Vascular: 2+ radial Abdomen: Soft, nontender Extremities: Well perfused, no significant edema, few reticular veins/telangiectasias Neuro: Nonfocal Psych: Alert orient x3, normal affect and mood Results & Data ([facility]) Vital Signs (Past 12 Hours) Vital Signs Temp Pulse Pulse Resp BP Pulse Ox 03/07/22 12:23 97.7 F 66 20 110/61 97 03/07/22 09:21 67 03/07/22 02:33 97.2 F L 40 L 12 103/66 100 03/07/22 01:18 41 L PG Care Time/CCT Total # of Minutes Spent Total Time Spent with Patient: Total time spent is greater than 50% in coordination of care (as documented) at patient's floor/unit and/or counseling patient: Coding Level of Care Code 28011 Initial Inpt Care Lvl 3 Diagnoses Junctional bradycardia R00.1
--- NOTE | 2022-03-07 13:40 | Hospitalist Progress Note ---
Date of Service March 07, 2022 Assessment & Plan (1) Junctional bradycardia: (2) Chest pain: (3) Acute on chronic diastolic CHF (congestive heart failure): (4) Complex sleep apnea syndrome: Plan: Junctional bradycardia - At presentation, HR in low 40s. Denied any recent new medications. Denies any tick bites. - S/p 1 dose of 1 mg atropine by EMS. TSH normal, electrolytes normal - Check for lyme disease sent 03/07. Hold all AV froylan blockers and medications which can worsen bradycardia - C/t monitor on tele, Hold coreg and other medications that can worsen bradycardia like her antipsychotic and antidepressants. - Have atropine and pacer pad in place in case she has symptomatic bradycardia - Await echo - Cardio on board, appreciate recs, pt started on HH diet. - HR improving, pt remains asymptomatic. Chest pain- resolved, trop x3 negative. ?related to bradycardia. Had stress test and cath couple years ago which was negative. F/u EKG reviewed, await echo Acute on chronic diastolic CHF- complains of weight gain, abd bloating, shortens of breath with exertion. Bibasilar crackles +. Ran out of torsemide the day prior to arrival. Also gets iv lasix via port as neeeded. - iv lasix bid, daily weight, strict I and Os. Repeat echo pending. BNP elevated. transition to po lasix tomorrow. Hyponatremia- NA 129. ?hypervolemic. Giving lasix and on fluid restriction. Improving. Recheck in am CKD3a- Cr at baseline of around 1. Monitor with diuresis COPD- not in exacerbation, continue trelegy LARRY- on BIPAP 09/10 per patient. continue GERD- on PPI Depression/anxiety- continue cymbalta. Holding her other antidepressants or antipsychotic which can worsen bradycardia. Postsurgical malabsorption- holding colesevelam as it can worsen bradycardia Abnormal UA- denies any urinary symptoms. Could be contamination. Hold off on antibiotics for now, maribel given her multiple antibiotic allergies. Await C/S DVT ppx- sc heparin Dispo- PCU on tele Full code Admission and Anticipated Discharge Date Admission Date: March 06, 2022 Subjective Patient seen and examined at bedside as a follow-up of chest pain and junctional bradycardia and acute on chronic CHF. Patient was lying in bed, on room air, NAD, no new acute events overnight. Patient was n.p.o. until seen by cardiology today. Patient complains of mild chest pain ongoing. She does have chronic low back pain. She reports moving bowels okay. Denies any belly pain or nausea. She does have dizziness and headache on and off per her. Physical Exam Physical Exam: GENERAL: Alert and oriented x3. NAD, on RA. HEENT: No pallor, no icterus. Pupils equal, round and reactive to light. Oral mucosa moist. NECK: No JVD, no neck masses. HEART: S1 and S2 heard. Regular rate and rhythm. systolic murmur at aortic and pulmonic area, no gallop. RESPIRATORY SYSTEM: Normal AP diameter. No accessory muscle use. No wheezing, mid and bibasal crackles ABDOMEN: Soft, bowel sounds present, nontender, no distention. CENTRAL NERVOUS SYSTEM: No facial droop. Speech is clear. Obeys simple commands. Moves extremities. EXTREMITIES: No edema, no erythema seen. Results & Data Results & Data ([facility]) Vital Signs (Past 12 Hours) Vital Signs Temp Pulse Pulse Resp BP Pulse Ox 03/07/22 12:23 36.5 C 66 20 110/61 97 03/07/22 09:21 67 03/07/22 02:33 36.2 C L 40 L 12 103/66 100
--- NOTE | 2022-03-07 14:51 | XCELERA ---
[id number]
[2022-03-07 16:04] LABS: Lyme Ab IgG w/WB Rflx Positive (Negative); Lyme Ab IgM w/WB Rflx Equivocal (Negative)
[2022-03-07] MEDS: DULoxetine HCL 20 MG CAP PO SCH (20:43)
[2022-03-07] MEDS: rOPINIRole HCL 0.25 MG TABLET PO SCH (20:43)
[2022-03-07] MEDS: MONTELUKAST SODIUM 10 MG TABLET PO SCH (20:44)
[2022-03-08] MEDS: LEVOTHYROXINE SODIUM 75 MCG TABLET PO SCH (05:30)
[2022-03-08 07:01] LABS: Hematocrit (blood only) 39.9 % (37-47); Hemoglobin 13.2 g/dL (12.0-16.0); Mean Corpuscular Hemoglobin 30.4 pg (25-34); Mean Corpuscular Hgb Conc 33.1 g/dL (32-36); Mean Corpuscular Volume 91.9 fL (80-100); Mean Platelet Volume 10.1 fL (7.4-10.4); Platelet Count 189 K/uL (130-400); RDW Coefficient of Variation 13.5 % (11.5-14.5); Red Blood Count 4.34 M/uL (4.2-5.4); White Blood Count 5.25 K/uL (4.8-10.8)
[2022-03-08 07:49] LABS: Calcium 8.4 mg/dl (8.5-10.1); Potassium 3.9 mmol/L (3.5-5.1)
[2022-03-08 07:55] LABS: BUN Creatinine Ratio 21.6 (10-20); Creatinine Clr Calc Pharmacy 50.5 ml/min; Est GFR (African American) 58.7 ml/min; Est GFR (Non-African American) 50.6 ml/min; Phosphorus 3.5 mg/dl (2.5-4.9)
[2022-03-08] MEDS: POTASSIUM CHLORIDE 10 MEQ TABCR PO SCH ×3 (08:58→16:39)
[2022-03-08] MEDS: PREGABALIN 150 MG CAP PO SCH ×3 (08:58→20:10)
[2022-03-08] MEDS: PANCREAZE (LIPASE 16,800U) CAP PO SCH ×3 (08:58→16:36)
[2022-03-08] MEDS: PANTOprazole 40 MG TAB PO SCH ×2 (08:59→20:10)
[2022-03-08] MEDS: HEPARIN SOD 5,000 UNIT/0.5 ML VIAL SQ SCH ×2 (08:59→20:11)
[2022-03-08] MEDS: FUROSEMIDE 40 MG/4 ML VIAL IV SCH ×2 (09:04→20:11)
--- NOTE | 2022-03-08 10:59 | Cardiology Progress Note ---
Date of Service March 08, 2022 Assessment & Plan (1) Junctional bradycardia: (2) Left-sided chest pain: Plan: 1. Junctional rhythm: She has had no further junctional rhythm, her blood pressure is good so I would avoid negative chronotropic medications. 2. Chest discomfort: This appears to be noncardiac, and it is still present. Perhaps musculoskeletal. Admission and Anticipated Discharge Date Admission Date: March 06, 2022 Subjective Today she is lying in bed, she looks comfortable but she tells me that she has continued to have chest discomfort intermittently, similar to what brought her into the hospital. She locates it under her left breast, tells me it is sharp but does say it radiates to her neck. No lightheadedness, dizziness or shortness of breath. Physical Exam Physical Exam: Constitutional: Alert, cooperative and in no distress. HEENT: Unremarkable Neck: No jugular venous distention, carotid pulses are normal and equal bilaterally without bruits. Pulmonary: Clear to auscultation bilaterally. Cardiac: Regular rhythm with no murmur, gallop or rub. Abdomen: Soft, nontender with normal bowel sounds. Extremities: No edema. Distal pulses intact. Neurologic: No focal findings. Gait is steady. Skin: No rash, ecchymoses or petechiae. Results & Data ([facility]) Vital Signs (Past 12 Hours) Vital Signs Temp Pulse Pulse Resp BP Pulse Ox 03/08/22 07:15 70 03/08/22 03:34 36.7 C 71 16 104/65 92 Laboratory Results CBC 03/08/22 Range/Units 06:26 WBC 5.25 (4.8-10.8) K/uL RBC 4.34 (4.2-5.4) M/uL Hgb 13.2 (12.0-16.0) g/dL Hct 39.9 (37-47) % Plt Count 189 (130-400) K/uL Comprehensive Metabolic Panel 03/08/22 Range/Units 06:26 Sodium 143 (136-145) mmol/L Potassium 3.9 (3.5-5.1) mmol/L Chloride 108 H (98-107) mmol/L Carbon Dioxide 28 (21-32) mmol/L BUN 24 H (6-23) mg/dl Creatinine 1.11 (0.6-1.2) mg/dl Glucose 114 H (70-99(Fasting)) mg/dl Calcium 8.4 L (8.5-10.1) mg/dl Intake and Output 03/07/22 03/08/22 03/08/22 22:59 06:59 14:59 Intake Total 300 / 1100 300 / 1100 Output Total 200 / 800 Balance 300 / 300 100 / 300 Intake: Oral 300 / 1100 300 / 1100 Output: Urine Amount (Catheter) 200 / 600 External 200 / 600 Other: # Unmeasured Voids 1 1 Diagnostic Findings Telemetry: Sinus rhythm, first-degree AV block but no higher degree AV block. An echocardiogram done on March 07, 2022 shows normal left ventricular systolic function with no wall motion abnormalities. PG Care Time/CCT Total # of Minutes Spent Total Time Spent with Patient: Total time spent is greater than 50% in coordination of care (as documented) at patient's floor/unit and/or counseling patient: Coding Level of Care Code 08451 Subseq Hosp Care Lvl 2 Diagnoses Junctional bradycardia R00.1 Left-sided chest pain R07.9
[2022-03-08] MEDS: oxyCODONE/ACETAMINOPHEN 5mg/325mg TAB PO PRN (11:39)
[2022-03-08] MEDS: DOXYCYCLINE HYCLATE 100 MG CAP PO SCH ×2 (11:40→20:12)
[2022-03-08] MEDS: ESCITALOPRAM OXALATE 10 MG TAB PO SCH (11:40)
--- NOTE | 2022-03-08 12:48 | Hospitalist Progress Note ---
Date of Service March 08, 2022 Assessment & Plan (1) Junctional bradycardia: (2) Chest pain: (3) Acute on chronic diastolic CHF (congestive heart failure): (4) Complex sleep apnea syndrome: Plan: Junctional bradycardia- resolved off of BB- currently NSR in 60s-70s. ?related to lyme - At presentation, HR in low 40s. Denied any recent new medications or tick bites, however h/o lyme disease in past. - S/p 1 dose of 1 mg atropine by EMS. TSH normal, electrolytes normal - Lyme IgM equivocal, IgG positive, western blot pending- started on doxy D1 pending final results- allergic to cephalosporin- Discussed with cardiology. - Discontinue all AV froylan blockers including BB - Will resume her home antipsychotic and antidepressants and monitor on tel - Cardio following - Echo with no significant change from 07/2021: EF 55-60%, no regional WMA, mild AR Chest pain- resolved, trop x3 negative. ?related to bradycardia. Had stress test and cath couple years ago which was negative. F/u EKG reviewed, Echo with no significant change from before Acute on chronic diastolic CHF- complains of weight gain, abd bloating, shortens of breath with exertion. Bibasilar crackles +. Ran out of torsemide the day prior to arrival. Also gets iv lasix via port as needed. - iv lasix bid, daily weight, strict I and Os. Repeat echo similar to before. - change to po torsemide- likely tomorrow Hyponatremia- resolved with diuresis. Likely was hypervolemic CKD3a- Cr at baseline of around 1. Monitor with diuresis COPD- not in exacerbation, continue trelegy LARRY- on BIPAP 09/10 per patient. continue GERD- on PPI Depression/anxiety- resume home meds- monitor on tele Postsurgical malabsorption- resume colesevelam Abnormal UA- urine clx negative. Asymptomatic DVT ppx- sc heparin Dispo- Anticipate discharge in 1-2 days Admission and Anticipated Discharge Date Admission Date: March 06, 2022 Subjective She had chest tightness and shortness of breath this morning, similar to what brought her to the ED. Feels fine during my encounter, States she has been having a lot of diuresis with iv lasix. Discussed about lyme results. States she had lyme disease in the past- agreeable to ABx pending final results. Updated cardio. Physical Exam Physical Exam: General: Lying comfortably in bed, not in distress, on room air HEENT: EOMI, BORA, MMM Chest: Rt sided Port. Clear breath sounds bilaterally CVS: Regular, normal heart sounds, no murmur Abdomen: Soft, non tender, mildly distended, normal bowel sounds Neuro: Awake, alert, oriented, conversing well, non focal Extremities: No cyanosis, clubbing, trace RLE edema Results & Data Results & Data ([facility]) Vital Signs (Past 12 Hours) Vital Signs Temp Pulse Pulse Resp BP Pulse Ox 03/08/22 11:37 36.7 C 77 16 113/76 92 03/08/22 07:15 70 03/08/22 03:34 36.7 C 71 16 104/65 92 Laboratory Results Short CBC 03/08/22 Range/Units 06:26 WBC 5.25 (4.8-10.8) K/uL Hgb 13.2 (12.0-16.0) g/dL Hct 39.9 (37-47) % Plt Count 189 (130-400) K/uL BMP 03/08/22 06:26 Sodium 143 Potassium 3.9 Chloride 108 H Carbon Dioxide 28 BUN 24 H Creatinine 1.11 Glucose 114 H Calcium 8.4 L Medications Administered Current Inpatient Medications Albuterol (Albuterol Hfa 8 Gm Inhaler) 2 puffs INH Q6H PRN PRN Reason: Shortness Of Breath Or Wheezing Stop: 04/05/22 22:51 Albuterol (Albut/Ipratrop 3mg/0.5mg Neb 3 Ml Vial) 3 ml INH Q4H PRN; Protocol PRN Reason: Shortness Of Breath Or Wheezing Stop: 04/05/22 22:20 Lipase/Protease/Amylase (Pancreaze (Lipase 16,800u) Cap) 4 cap PO TIDM [facility]ATE Stop: 04/06/22 07:59 Last Admin: 03/08/22 11:40 Dose: 4 cap Documented by: Atropine Sulfate (Atropine Sulfate 0.1 Mg/Ml 10ml Syr) 0.5 mg IV DAILY PRN PRN Reason: bradycardia, HR <30 or symptomatic Stop: 04/05/22 21:06 Desipramine HCl (Desipramine Hcl 50 Mg Tab) 50 mg PO BID [facility]ATE Stop: 04/07/22 08:59 Doxycycline Hyclate (Doxycycline Hyclate 100 Mg Cap) 100 mg PO BID [facility] Stop: 03/18/22 08:59 Last Admin: 03/08/22 11:40 Dose: 100 mg Documented by: Duloxetine HCl (Duloxetine Hcl 20 Mg Cap) 20 mg PO HS [facility] Stop: 04/05/22 22:20 Last Admin: 03/07/22 20:43 Dose: 20 mg Documented by: Escitalopram Oxalate (Escitalopram Oxalate 10 Mg Tab) 10 mg PO QAM [facility] Stop: 04/07/22 08:59 Last Admin: 03/08/22 11:40 Dose: 10 mg Documented by: Furosemide (Furosemide 40 Mg/4 Ml Vial) 40 mg IV BID CATE Stop: 04/05/22 22:20 Last Admin: 03/08/22 09:04 Dose: 40 mg Documented by: Heparin Sodium (Porcine) (Heparin Sod 5,000 Unit/0.5 Ml Vial) 5,000 units SQ Q12 CATE Stop: 04/06/22 08:59 Last Admin: 03/08/22 08:59 Dose: 5,000 units Documented by: Heparin Sodium (Porcine) (Heparin 100 Unit/Ml 5ml Flush) 5 ml FLUSH PRN PRN PRN Reason: Flush Stop: 04/05/22 23:24 Levothyroxine Sodium (Levothyroxine Sodium 75 Mcg Tablet) 75 mcg PO DAILYBB [facility] Stop: 04/06/22 06:29 Last Admin: 03/08/22 05:30 Dose: 75 mcg Documented by: Montelukast Sodium (Montelukast Sodium 10 Mg Tablet) 10 mg PO HS [facility] Stop: 04/05/22 22:20 Last Admin: 03/07/22 20:44 Dose: 10 mg Documented by: Oxycodone/Acetaminophen (Oxycodone/Acetaminophen 5mg/325mg Tab) 1 tab PO Q6H PRN PRN Reason: pain Stop: 03/20/22 22:20 Last Admin: 03/08/22 11:39 Dose: 1 tab Documented by: Pantoprazole Sodium (Pantoprazole 40 Mg Tab) 40 mg PO BID [facility] Stop: 04/05/22 22:59 Last Admin: 03/08/22 08:59 Dose: 40 mg Documented by: Potassium Chloride (Potassium Chloride 10 Meq Tabcr) 10 meq PO TIDM [facility] Stop: 04/05/22 22:59 Last Admin: 03/08/22 11:40 Dose: 10 meq Documented by: Pregabalin (Pregabalin 150 Mg Cap) 150 mg PO TID [facility] Stop: 04/05/22 22:20 Last Admin: 03/08/22 08:58 Dose: 150 mg Documented by: Risperidone (Risperidone 2 Mg Tablet) 2 mg PO HS [facility] Stop: 04/07/22 20:59 Ropinirole HCl (Ropinirole Hcl 0.25 Mg Tablet) 0.25 mg PO [facility] Stop: 04/05/22 22:20 Last Admin: 03/07/22 20:43 Dose: 0.25 mg Documented by: Tamsulosin HCl (Tamsulosin Hcl 0.4 Mg Cap) 0.4 mg PO CATE Stop: 04/07/22 20:59
[2022-03-08] MEDS: DESIPRAMINE HCL 50 MG TAB PO SCH ×2 (13:06→20:11)
--- NOTE | 2022-03-08 14:24 | Electrocardiogram Report ---
Test Reason : Blood Pressure : / mmHG Vent. Rate : 053 BPM Atrial Rate : 061 BPM P-R Int : 000 ms QRS Dur : 108 ms QT Int : 458 ms P-R-T Axes : 000 -19 013 degrees QTc Int : 429 ms Junctional rhythm Moderate voltage criteria for LVH, may be normal variant Nonspecific ST and T wave abnormality Abnormal ECG When compared with ECG of 23-MAY-2021 11:40, Junctional rhythm has replaced Sinus rhythm Confirmed by Srikanth Wagner ([id number]) on 03/08/2022 2:23:38 PM Referred By: REFERRED SELF Confirmed By:Srikanth Wagner
--- NOTE | 2022-03-08 14:33 | Electrocardiogram Report ---
Test Reason : Blood Pressure : / mmHG Vent. Rate : 048 BPM Atrial Rate : 073 BPM P-R Int : 000 ms QRS Dur : 098 ms QT Int : 456 ms P-R-T Axes : 000 -18 019 degrees QTc Int : 407 ms Junctional rhythm Minimal voltage criteria for LVH, may be normal variant Nonspecific ST and T wave abnormality Abnormal ECG When compared with ECG of 06-MAR-2022 18:21, (unconfirmed) No significant change was found Confirmed by Srikanth Wagner ([id number]) on 03/08/2022 2:33:19 PM Referred By: REFERRED SELF Confirmed By:Srikanth Wagner
--- NOTE | 2022-03-08 14:35 | Electrocardiogram Report ---
Test Reason : Blood Pressure : / mmHG Vent. Rate : 067 BPM Atrial Rate : 067 BPM P-R Int : 222 ms QRS Dur : 114 ms QT Int : 432 ms P-R-T Axes : 050 -29 050 degrees QTc Int : 456 ms Sinus rhythm with 1st degree A-V block Minimal voltage criteria for LVH, may be normal variant Nonspecific T wave abnormality Abnormal ECG When compared with ECG of 06-MAR-2022 23:31, (unconfirmed) Sinus rhythm has replaced Junctional rhythm Confirmed by Srikanth Wagner ([id number]) on 03/08/2022 2:35:21 PM Referred By: REFERRED SELF Confirmed By:Srikanth Wagner
[2022-03-08] MEDS: rOPINIRole HCL 0.25 MG TABLET PO SCH (20:10)
[2022-03-08] MEDS: DULoxetine HCL 20 MG CAP PO SCH (20:10)
[2022-03-08] MEDS: TAMSULOSIN HCL 0.4 MG CAP PO SCH (20:10)
[2022-03-08] MEDS: MONTELUKAST SODIUM 10 MG TABLET PO SCH (20:11)
[2022-03-08] MEDS: risperiDONE 2 MG TABLET PO SCH (20:11)
[2022-03-09] MEDS: LEVOTHYROXINE SODIUM 75 MCG TABLET PO SCH (05:02)
[2022-03-09 06:32] LABS: Hematocrit (blood only) 43.1 % (37-47); Hemoglobin 13.9 g/dL (12.0-16.0); Mean Corpuscular Hemoglobin 29.7 pg (25-34); Mean Corpuscular Hgb Conc 32.3 g/dL (32-36); Mean Corpuscular Volume 92.1 fL (80-100); Mean Platelet Volume 10.4 fL (7.4-10.4); Platelet Count 207 K/uL (130-400); RDW Coefficient of Variation 13.9 % (11.5-14.5); RDW Standard Deviation 46.9 fL (36.4-46.3); Red Blood Count 4.68 M/uL (4.2-5.4); White Blood Count 5.87 K/uL (4.8-10.8)
[2022-03-09 06:59] LABS: BUN Creatinine Ratio 28.9 (10-20); Calcium 8.8 mg/dl (8.5-10.1); Creatinine Clr Calc Pharmacy 47.1 ml/min; Est GFR (African American) 56.8 ml/min; Potassium 4.1 mmol/L (3.5-5.1)
[2022-03-09] MEDS: oxyCODONE/ACETAMINOPHEN 5mg/325mg TAB PO PRN ×2 (09:25→15:26)
[2022-03-09] MEDS: DESIPRAMINE HCL 50 MG TAB PO SCH ×2 (09:25→20:06)
[2022-03-09] MEDS: PANCREAZE (LIPASE 16,800U) CAP PO SCH ×3 (09:25→16:28)
[2022-03-09] MEDS: POTASSIUM CHLORIDE 10 MEQ TABCR PO SCH ×3 (09:25→16:28)
[2022-03-09] MEDS: PREGABALIN 150 MG CAP PO SCH ×3 (09:25→20:07)
[2022-03-09] MEDS: ESCITALOPRAM OXALATE 10 MG TAB PO SCH (09:26)
[2022-03-09] MEDS: PANTOprazole 40 MG TAB PO SCH ×2 (09:26→20:07)
[2022-03-09] MEDS: FUROSEMIDE 40 MG/4 ML VIAL IV SCH ×2 (09:26→20:12)
[2022-03-09] MEDS: DOXYCYCLINE HYCLATE 100 MG CAP PO SCH ×2 (10:00→20:07)
[2022-03-09] MEDS: HEPARIN SOD 5,000 UNIT/0.5 ML VIAL SQ SCH ×2 (10:00→20:07)
--- NOTE | 2022-03-09 11:27 | Cardiology Progress Note ---
Date of Service March 09, 2022 Assessment & Plan (1) Junctional bradycardia: (2) Left-sided chest pain: Plan: 1. Junctional rhythm: She has had no further junctional rhythm, her blood pressure is good so I would avoid negative chronotropic medications. 2. Chest discomfort: This appears to be noncardiac, and it is not there today. Perhaps musculoskeletal. Admission and Anticipated Discharge Date Admission Date: March 06, 2022 Subjective She tells me she is short of breath but does not look it, she has no other complaints. She has not been out of bed and she is laying flat. Physical Exam Physical Exam: Constitutional: Alert, cooperative and in no distress. HEENT: Unremarkable Neck: No jugular venous distention, carotid pulses are normal and equal bilaterally without bruits. Pulmonary: Clear to auscultation bilaterally. Cardiac: Regular rhythm with no murmur, gallop or rub. Abdomen: Soft, nontender with normal bowel sounds. Extremities: No edema. Distal pulses intact. Neurologic: No focal findings. Gait is steady. Skin: No rash, ecchymoses or petechiae. Results & Data ([facility]) Vital Signs (Past 12 Hours) Vital Signs Temp Pulse Pulse Resp BP Pulse Ox 03/09/22 10:12 71 03/09/22 08:00 36.5 C 83 18 118/64 96 03/09/22 03:21 36.4 C L 76 17 106/71 100 Laboratory Results CBC 03/09/22 Range/Units 06:08 WBC 5.87 (4.8-10.8) K/uL RBC 4.68 (4.2-5.4) M/uL Hgb 13.9 (12.0-16.0) g/dL Hct 43.1 (37-47) % Plt Count 207 (130-400) K/uL Comprehensive Metabolic Panel 03/09/22 Range/Units 06:08 Sodium 142 (136-145) mmol/L Potassium 4.1 (3.5-5.1) mmol/L Chloride 106 (98-107) mmol/L Carbon Dioxide 29 (21-32) mmol/L BUN 33 H (6-23) mg/dl Creatinine 1.14 (0.6-1.2) mg/dl Glucose 128 H (70-99(Fasting)) mg/dl Calcium 8.8 (8.5-10.1) mg/dl Intake and Output 06/04/22 06/05/22 06/05/22 22:59 06:59 14:59 Intake Total 250 / 500 Output Total 450 / 1150 Balance -200 / -650 Intake: Oral 250 / 500 Output: Urine Amount (Catheter) 450 / 1150 External 450 / 1150 Other: # Unmeasured Voids 1 Weight 88.5 kg Weight Measurement Method Built in [facility] Diagnostic Findings Telemetry: First-degree AV block, no second-degree AV block. PG Care Time/CCT Total # of Minutes Spent Total Time Spent with Patient: Total time spent is greater than 50% in coordination of care (as documented) at patient's floor/unit and/or counseling patient: Coding Level of Care Code 20073 Subseq Hosp Care Lvl 2 Diagnoses Junctional bradycardia R00.1 Left-sided chest pain R07.9
--- NOTE | 2022-03-09 15:01 | Hospitalist Progress Note ---
Date of Service March 09, 2022 Assessment & Plan (1) Junctional bradycardia: (2) Chest pain: (3) Acute on chronic diastolic CHF (congestive heart failure): (4) Complex sleep apnea syndrome: Plan: Junctional bradycardia- resolved off of BB- currently NSR in 60s-70s. ?related to lyme - At presentation, HR in low 40s. Denied any recent new medications or tick bites, however h/o lyme disease in past. - S/p 1 dose of 1 mg atropine by EMS. TSH normal, electrolytes normal - Lyme IgM equivocal, IgG positive, western blot pending- started on doxy D2 pending final results- allergic to cephalosporin- Discussed with cardiology. - Discontinue all AV froylan blockers including BB - Will resume her home antipsychotic and antidepressants and monitor on tel - Cardio following - Echo with no significant change from 07/2021: EF 55-60%, no regional WMA, mild AR Chest pain- resolved, trop x3 negative. ?related to bradycardia. Had stress test and cath couple years ago which was negative. F/u EKG reviewed, Echo with no significant change from before Acute on chronic diastolic CHF- complains of weight gain, abd bloating, shortens of breath with exertion. Bibasilar crackles +. Ran out of torsemide the day prior to arrival. Also gets iv lasix via port as needed. - iv lasix bid, daily weight, strict I and Os. Repeat echo similar to before. - change to po torsemide- likely tomorrow - recommended to ambulate around to see how her dyspnea is Hyponatremia- resolved with diuresis. Likely was hypervolemic CKD3a- Cr at baseline of around 1. Monitor with diuresis COPD- not in exacerbation, continue trelegy LARRY- on BIPAP 09/10 per patient. continue GERD- on PPI Depression/anxiety- resume home meds- monitor on tele Postsurgical malabsorption- resume colesevelam Abnormal UA- urine clx negative. Asymptomatic DVT ppx- sc heparin Dispo- Anticipate discharge in 1-2 days Admission and Anticipated Discharge Date Admission Date: March 06, 2022 Subjective She feels better but still has some shortness of breath. She has not ambulated much. She states urine output seems to have slowed down. Denies any chest pain. States her abdominal bloating and swelling is improved. Physical Exam Physical Exam: General: Lying comfortably in bed, not in distress, on room air HEENT: EOMI, BORA, MMM Chest: Rt sided Port. Clear breath sounds bilaterally CVS: Regular, normal heart sounds, no murmur Abdomen: Soft, non tender, mildly distended, normal bowel sounds Neuro: Awake, alert, oriented, conversing well, non focal Extremities: No cyanosis, clubbing, trace RLE edema Results & Data Results & Data ([facility]) Vital Signs (Past 12 Hours) Vital Signs Temp Pulse Pulse Resp BP Pulse Ox 03/09/22 10:12 71 03/09/22 08:00 36.5 C 83 18 118/64 96 03/09/22 03:21 36.4 C L 76 17 106/71 100 Laboratory Results Short CBC 03/09/22 Range/Units 06:08 WBC 5.87 (4.8-10.8) K/uL Hgb 13.9 (12.0-16.0) g/dL Hct 43.1 (37-47) % Plt Count 207 (130-400) K/uL BMP 03/09/22 06:08 Sodium 142 Potassium 4.1 Chloride 106 Carbon Dioxide 29 BUN 33 H Creatinine 1.14 Glucose 128 H Calcium 8.8 Medications Administered Current Inpatient Medications Albuterol (Albuterol Hfa 8 Gm Inhaler) 2 puffs INH Q6H PRN PRN Reason: Shortness Of Breath Or Wheezing Stop: 04/05/22 22:51 Albuterol (Albut/Ipratrop 3mg/0.5mg Neb 3 Ml Vial) 3 ml INH Q4H PRN; Protocol PRN Reason: Shortness Of Breath Or Wheezing Stop: 04/05/22 22:20 Lipase/Protease/Amylase (Pancreaze (Lipase 16,800u) Cap) 4 cap PO TIDM CATE Stop: 04/06/22 07:59 Last Admin: 03/09/22 11:40 Dose: 4 cap Documented by: Atropine Sulfate (Atropine Sulfate 0.1 Mg/Ml 10ml Syr) 0.5 mg IV DAILY PRN PRN Reason: bradycardia, HR <30 or symptomatic Stop: 04/05/22 21:06 Desipramine HCl (Desipramine Hcl 50 Mg Tab) 50 mg PO BID [facility] Stop: 04/07/22 08:59 Last Admin: 03/09/22 09:25 Dose: 50 mg Documented by: Doxycycline Hyclate (Doxycycline Hyclate 100 Mg Cap) 100 mg PO BID [facility] Stop: 03/18/22 08:59 Last Admin: 03/09/22 10:00 Dose: 100 mg Documented by: Duloxetine HCl (Duloxetine Hcl 20 Mg Cap) 20 mg PO HS [facility] Stop: 04/05/22 22:20 Last Admin: 03/08/22 20:10 Dose: 20 mg Documented by: Escitalopram Oxalate (Escitalopram Oxalate 10 Mg Tab) 10 mg PO QAM [facility] Stop: 04/07/22 08:59 Last Admin: 03/09/22 09:26 Dose: 10 mg Documented by: Furosemide (Furosemide 40 Mg/4 Ml Vial) 40 mg IV BID [facility] Stop: 04/05/22 22:20 Last Admin: 03/09/22 09:26 Dose: 40 mg Documented by: Heparin Sodium (Porcine) (Heparin Sod 5,000 Unit/0.5 Ml Vial) 5,000 units SQ Q12 CATE Stop: 04/06/22 08:59 Last Admin: 03/09/22 10:00 Dose: 5,000 units Documented by: Heparin Sodium (Porcine) (Heparin 100 Unit/Ml 5ml Flush) 5 ml FLUSH PRN PRN PRN Reason: Flush Stop: 04/05/22 23:24 Levothyroxine Sodium (Levothyroxine Sodium 75 Mcg Tablet) 75 mcg PO DAILYBB [facility] Stop: 04/06/22 06:29 Last Admin: 03/09/22 05:02 Dose: 75 mcg Documented by: Montelukast Sodium (Montelukast Sodium 10 Mg Tablet) 10 mg PO HS [facility] Stop: 04/05/22 22:20 Last Admin: 03/08/22 20:11 Dose: 10 mg Documented by: Oxycodone/Acetaminophen (Oxycodone/Acetaminophen 5mg/325mg Tab) 1 tab PO Q6H PRN PRN Reason: pain Stop: 03/20/22 22:20 Last Admin: 03/09/22 09:25 Dose: 1 tab Documented by: Pantoprazole Sodium (Pantoprazole 40 Mg Tab) 40 mg PO BID [facility] Stop: 04/05/22 22:59 Last Admin: 03/09/22 09:26 Dose: 40 mg Documented by: Potassium Chloride (Potassium Chloride 10 Meq Tabcr) 10 meq PO TIDM CATE Stop: 04/05/22 22:59 Last Admin: 03/09/22 11:40 Dose: 10 meq Documented by: Pregabalin (Pregabalin 150 Mg Cap) 150 mg PO TID [facility] Stop: 04/05/22 22:20 Last Admin: 03/09/22 14:09 Dose: 150 mg Documented by: Risperidone (Risperidone 2 Mg Tablet) 2 mg PO [facility] Stop: 04/07/22 20:59 Last Admin: 03/08/22 20:11 Dose: 2 mg Documented by: Ropinirole HCl (Ropinirole Hcl 0.25 Mg Tablet) 0.25 mg PO [facility] Stop: 04/05/22 22:20 Last Admin: 03/08/22 20:10 Dose: 0.25 mg Documented by: Tamsulosin HCl (Tamsulosin Hcl 0.4 Mg Cap) 0.4 mg PO [facility] Stop: 04/07/22 20:59 Last Admin: 03/08/22 20:10 Dose: 0.4 mg Documented by:
[2022-03-09] MEDS: DULoxetine HCL 20 MG CAP PO SCH (20:06)
[2022-03-09] MEDS: rOPINIRole HCL 0.25 MG TABLET PO SCH (20:06)
[2022-03-09] MEDS: MONTELUKAST SODIUM 10 MG TABLET PO SCH (20:07)
[2022-03-09] MEDS: risperiDONE 2 MG TABLET PO SCH (20:07)
[2022-03-09] MEDS: TAMSULOSIN HCL 0.4 MG CAP PO SCH (20:07)
[2022-03-10] MEDS: oxyCODONE/ACETAMINOPHEN 5mg/325mg TAB PO PRN (04:07)
[2022-03-10] MEDS: LEVOTHYROXINE SODIUM 75 MCG TABLET PO SCH (04:08)
[2022-03-10 06:27] LABS: BUN Creatinine Ratio 30.1 (10-20); Calcium 8.8 mg/dl (8.5-10.1); Creatinine Clr Calc Pharmacy 39.5 ml/min; Est GFR (African American) 45.9 ml/min; Est GFR (Non-African American) 39.6 ml/min; Magnesium 1.6 mg/dl (1.7-2.4); Potassium 3.8 mmol/L (3.5-5.1)
[2022-03-10] MEDS: ESCITALOPRAM OXALATE 10 MG TAB PO SCH (08:11)
[2022-03-10] MEDS: HEPARIN SOD 5,000 UNIT/0.5 ML VIAL SQ SCH (08:11)
[2022-03-10] MEDS: DESIPRAMINE HCL 50 MG TAB PO SCH (08:11)
[2022-03-10] MEDS: PANCREAZE (LIPASE 16,800U) CAP PO SCH ×2 (08:11→13:12)
[2022-03-10] MEDS: PANTOprazole 40 MG TAB PO SCH (08:11)
[2022-03-10] MEDS: POTASSIUM CHLORIDE 10 MEQ TABCR PO SCH ×2 (08:12→13:12)
[2022-03-10] MEDS: DOXYCYCLINE HYCLATE 100 MG CAP PO SCH (08:12)
[2022-03-10] MEDS: PREGABALIN 150 MG CAP PO SCH (08:14)
[2022-03-10] MEDS: MAGNESIUM SULFATE / D5W 1 GM/100 ML BAG IV SCH ×2 (08:14→09:45)
[2022-03-10 14:02] LABS: 18KDIGG Band NON-REACTIVE; 23KDIGG Band NON-REACTIVE; 23KDIGM Band NON-REACTIVE; 28KDIGG Band NON-REACTIVE; 30KDIGG Band NON-REACTIVE; 39KDIGG Band NON-REACTIVE; 39KDIGM Band REACTIVE; 41KDIGG Band REACTIVE; 41KDIGM Band NON-REACTIVE; 45KDIGG Band NON-REACTIVE; 58KDIGG Band NON-REACTIVE; 66KDIGG Band NON-REACTIVE; 93KDIGG Band NON-REACTIVE; Lyme Antibodies, WB IgG NEGATIVE (NEGATIVE); Lyme Antibodies, WB IgM NEGATIVE (NEGATIVE)
--- NOTE | 2022-03-10 16:06 | Discharge Summary ---
Date of Service March 10, 2022 Admission HPI Per Admitting Provider 71 year old female with h/o chronic diastolic CHF, COPD, LARRY on bipap, malabsorption syndrome and other medical conditions as below presented to the ED with bradycardia, dyspnea on exertion. States she was in her usual state of health until yesterday. When she woke up this morning, she did not feel right. She thought she needed more lasix. She was feeling short of breath with exertion, left sided chest pain and some dizziness. She had increase in her abdominal bloating and some leg swelling. She takes torsemide bid but ran out yesterday. She called her home nurse to get iv lasix through her port. Her RN found her to be bradycardic in 40s, called PCP and was then recommended ED evaluation. She was given 1 mg atropine and 50mcg fentanly via port by EMS. She was not given lasix. She came to the ED. She states she felt better after the medications and her symptoms completely resolved although her HR was still in low 40s in the ED. She was found to have junctional bradycardia. Trop x1 negative. She was comfortably lying in bed, not in any distress and felt fine during my encounter. States she follows Dr Otoole but has not seen him in a while. Denies any bradycardia or cardiac issues before other than her CHF. Denies any tick bites. Admission Exam Per Admitting Provider General: Lying comfortably in bed, not in distress, on room air HEENT: EOMI, BORA, MMM Chest: Rt sided Port. Clear breath sounds bilaterally with bilateral crackles more in bases CVS: Bradycardic but regular, no murmur Abdomen: Soft, non tender, mildly distended, normal bowel sounds Neuro: Awake, alert, oriented, conversing well, non focal Extremities: No cyanosis, clubbing, mild RLE edema Principal Diagnosis Junctional bradycardia, Acute on chronic diastolic CHF Discharge Exam General: Sitting comfortably in chair, not in distress, on room air HEENT: EOMI, BORA, MMM Chest: Rt sided Port. Clear breath sounds bilaterally CVS: Regular, normal heart sounds, no murmur Abdomen: Soft, non tender, mildly distended, normal bowel sounds Neuro: Awake, alert, oriented, conversing well, non focal Extremities: No cyanosis, clubbing, no edema Discharge Data Allergies Allergy/AdvReac Type Severity Reaction Status Date / Time bethanechol Allergy Intermediate RASH, Verified 02/26/22 11:18 "FEELS FUNNY" Cephalosporins Allergy Mild RASH, Verified 02/26/22 11:18 DIARRHEA ertapenem Allergy Mild RASH Verified 02/26/22 11:18 levofloxacin Allergy Mild RASH,TURNED Verified 02/26/22 11:18 RED Sulfa (Sulfonamide Allergy Mild Generalized Verified 02/26/22 11:18 Antibiotics) Rash clindamycin Allergy Unknown Unknown Verified 02/26/22 11:18 dipyridamole Allergy Unknown UNKNOWN Verified 02/26/22 11:18 droperidol Allergy Unknown Unknown Verified 02/26/22 11:18 promethazine Allergy Unknown UNKNOWN Verified 02/26/22 11:18 tobramycin Allergy Unknown UNKNOWN Verified 02/26/22 11:18 aspirin AdvReac Intermediate BLEEDING Verified 02/26/22 11:18 metolazone AdvReac Intermediate ELECTROLYTE Verified 02/26/22 11:18 ISSUES nitrofurantoin AdvReac Intermediate Vomiting Verified 02/26/22 11:18 [From Macrobid] tedizolid AdvReac Intermediate GI SYMPTOMS Verified 02/26/22 11:18 bupropion AdvReac Mild NERVOUS Verified 02/26/22 11:18 REACTION cephalexin AdvReac Mild GI SYMPTOMS Verified 02/26/22 11:18 morphine AdvReac Mild NERVOUS Verified 02/26/22 11:18 REACTION TO IT prochlorperazine AdvReac Mild NERVOUS Verified 02/26/22 11:18 REACTION Consultations 03/06/22 20:00 ED Decision to Admit Stat 03/06/22 21:07 Consult Cardiology Routine Ordered Studies Laboratory Results WBC 5.87 K/uL (4.8-10.8) 03/09/22 06:08 RBC 4.68 M/uL (4.2-5.4) 03/09/22 06:08 Hgb 13.9 g/dL (12.0-16.0) 03/09/22 06:08 Hct 43.1 % (37-47) 03/09/22 06:08 MCV 92.1 fL (80-100) 03/09/22 06:08 MCH 29.7 pg (25-34) 03/09/22 06:08 MCHC 32.3 g/dL (32-36) 03/09/22 06:08 RDW Std Deviation 46.9 fL (36.4-46.3) H 03/09/22 06:08 RDW Coeff of David 13.9 % (11.5-14.5) 03/09/22 06:08 Plt Count 207 K/uL (130-400) 03/09/22 06:08 MPV 10.4 fL (7.4-10.4) 03/09/22 06:08 Immature Gran % (Auto) 0.2 % 03/06/22 18:30 Neut % (Auto) 52.1 % 03/06/22 18:30 Lymph % (Auto) 36.7 % 03/06/22 18:30 Sunflower % (Auto) 9.2 % 03/06/22 18:30 Eos % (Auto) 1.4 % 03/06/22 18:30 Baso % (Auto) 0.4 % 03/06/22 18:30 Neut # (Auto) 2.88 K/uL (1.4-6.5) 03/06/22 18:30 Lymph # (Auto) 2.03 K/uL (1.2-3.4) 03/06/22 18:30 Sunflower # (Auto) 0.51 K/uL (0.11-0.59) 03/06/22 18:30 Eos # (Auto) 0.08 K/uL (0-0.5) 03/06/22 18:30 Baso # (Auto) 0.02 K/uL (0-0.2) 03/06/22 18:30 Immature Gran # (Auto) 0.01 K/uL (0.00-0.02) 03/06/22 18:30 Sodium 141 mmol/L (136-145) 03/10/22 05:22 Potassium 3.8 mmol/L (3.5-5.1) 03/10/22 05:22 Chloride 105 mmol/L (98-107) 03/10/22 05:22 Carbon Dioxide 27 mmol/L (21-32) 03/10/22 05:22 Anion Gap 9 (3-11) 03/10/22 05:22 BUN 41 mg/dl (6-23) H 03/10/22 05:22 Creatinine 1.36 mg/dl (0.6-1.2) H 03/10/22 05:22 Est Cr Clr Drug Dosing 39.5 ml/min 03/10/22 05:22 Est GFR ( Amer) 45.9 ml/min 03/10/22 05:22 Est GFR (Non-Af Amer) 39.6 ml/min 03/10/22 05:22 BUN/Creatinine Ratio 30.1 (10-20) H 03/10/22 05:22 Glucose 110 mg/dl (70-99(Fasting)) H 03/10/22 05:22 Calcium 8.8 mg/dl (8.5-10.1) 03/10/22 05:22 Phosphorus 3.5 mg/dl (2.5-4.9) 03/08/22 06:26 Magnesium 1.6 mg/dl (1.7-2.4) L 03/10/22 05:22 Total Bilirubin 0.3 mg/dl (0.2-1.0) 03/07/22 03:12 Direct Bilirubin 0.1 mg/dl (0-0.2) 03/06/22 18:30 AST 16 U/L (13-39) 03/07/22 03:12 ALT 15 U/L (7-52) 03/07/22 03:12 Alkaline Phosphatase 103 U/L (34-104) 03/07/22 03:12 Troponin I High Sens 11.0 pg/ml (0-14) 03/07/22 09:16 B-Natriuretic Peptide 51 pg/ml (0-100) 03/10/22 05:22 Total Protein 6.1 gm/dl (6.0-8.3) 03/07/22 03:12 Albumin 3.6 gm/dl (3.4-5.0) 03/07/22 03:12 Globulin 2.5 gm/dl (2.5-4.0) 03/07/22 03:12 Albumin/Globulin Ratio 1.4 (0.9-2) 03/07/22 03:12 TSH 3.134 uIu/ml (0.300-4.500) 03/06/22 18:30 Urine Color Yellow 03/06/22 20:20 Urine Appearance Clear (Clear) 03/06/22 20:20 Urine pH 6.5 (4.5-7.5) 03/06/22 20:20 Ur Specific Jackson 1.006 (1.000-1.030) 03/06/22 20:20 Urine Protein Negative (Negative) 03/06/22 20:20 Urine Glucose (UA) Negative (Negative) 03/06/22 20:20 Urine Ketones Negative (Negative) 03/06/22 20:20 Urine Blood Negative (Negative) 03/06/22 20:20 Urine Nitrite Negative (Negative) 03/06/22 20:20 Urine Bilirubin Negative (Negative) 03/06/22 20:20 Urine Urobilinogen Negative (Negative) 03/06/22 20:20 Ur Leukocyte Esterase 2+ (Negative) H 03/06/22 20:20 Urine WBC (Auto) 10-30 /hpf (0-5) H 03/06/22 20:20 Urine RBC (Auto) 0-4 /hpf (0-4) 03/06/22 20:20 U Hyaline Cast (Auto) 1-5 /lpf (0-5) 03/06/22 20:20 U Epithel Cells (Auto) 20-30 /lpf (0-5) H 03/06/22 20:20 Urine Bacteria (Auto) Negative (Negative) 03/06/22 20:20 Ur Renal Epithelial Cell Not Reportable 03/06/22 20:20 Lyme Disease IgG Ab Positive (Negative) A 03/07/22 14:15 Lyme IgG (Western Blot) NEGATIVE (NEGATIVE) 03/07/22 14:15 Lyme IgG 18 kDa Band NON-REACTIVE 03/07/22 14:15 Lyme IgG 23 kDa Band NON-REACTIVE 03/07/22 14:15 Lyme IgG 28 kDa Band NON-REACTIVE 03/07/22 14:15 Lyme IgG 30 kDa Band NON-REACTIVE 03/07/22 14:15 Lyme IgG 39 kDa Band NON-REACTIVE 03/07/22 14:15 Lyme IgG 41 kDa Band REACTIVE A 03/07/22 14:15 Lyme IgG 45 kDa Band NON-REACTIVE 03/07/22 14:15 Lyme IgG 58 kDa Band NON-REACTIVE 03/07/22 14:15 Lyme IgG 66 kDa Band NON-REACTIVE 03/07/22 14:15 Lyme IgG 93 kDa Band NON-REACTIVE 03/07/22 14:15 Lyme IgM Ab (WB) NEGATIVE (NEGATIVE) 03/07/22 14:15 Lyme Disease IgM Ab Equivocal (Negative) A 03/07/22 14:15 Lyme IgM 23 kDa Band NON-REACTIVE 03/07/22 14:15 Lyme IgM 39 kDa Band REACTIVE A 03/07/22 14:15 Lyme IgM 41 kDa Band NON-REACTIVE 03/07/22 14:15 SARS-CoV-2, RNA, NAAT NEGATIVE (NEGATIVE) 03/06/22 18:34 Impressions Chest X-Ray 03/06/22 18:18 XR chest 1V portable HISTORY: 71 years-old Female complete heart block, chest pain acute atypical chest pain COMPARISON: Chest radiograph 09/24/2021 TECHNIQUE: Portable AP view of the chest FINDINGS: Cardiac silhouette is enlarged. No overt pulmonary edema. Mild chronic interstitial coarsening. Unchanged positioning of the right IJ Cexwof-y-Kwem catheter. Chronic right hemidiaphragmatic elevation. No pneumothorax, large pleural effusion or lobar airspace consolidation. Degenerative changes of the shoulders and spine. Surgical suture material and clips project over the epigastric distribution. IMPRESSION: Chronic findings as above without acute process. ACT 112: Negative or not required by law. The above report was generated using voice recognition software. It may contain grammatical, syntax or spelling errors. Electronically signed by: Soham Kirby M.D. 03/06/2022 6:56 PM Hospital Course (1) Junctional bradycardia: (2) Chest pain: (3) Acute on chronic diastolic CHF (congestive heart failure): (4) Complex sleep apnea syndrome: Junctional bradycardia- resolved off of BB- currently NSR in 60s-70s. ?related to lyme - At presentation, HR in low 40s. Denied any recent new medications or tick bites, however h/o lyme disease in past. - S/p 1 dose of 1 mg atropine by EMS. TSH normal, electrolytes normal - Lyme IgM equivocal, IgG positive, western blot pending- started on doxy D3/21 pending final results- allergic to cephalosporin- Discussed with cardiology. - Discontinue all AV froylan blockers including BB- home coreg discontinued - Seen by cardio- recommendations noted. - Echo with no significant change from 07/2021: EF 55-60%, no regional WMA, mild AR ?lyme disease- - Lyme IgM equivocal, IgG positive, western blot pending- started on doxy currently D3/21 pending final results- allergic to cephalosporin- Recommended follow up with PCP regarding final results and further decision on continuation of doxy per the results. Patient voiced understanding. Chest pain- resolved, trop x3 negative. ?per cardio could be MSK. Had stress test and cath couple years ago which was negative. F/u EKG reviewed, Echo with no significant change from before Acute on chronic diastolic CHF- complains of weight gain, abd bloating, shortens of breath with exertion. Bibasilar crackles +. Ran out of torsemide the day prior to arrival. Also gets iv lasix via port as needed. - s/p iv lasix bid with good diuresis and now euvolemic- lasix held today due to mild bump in Cr. Recommended overnight observation to follow up on labs in am but she was adamant and anxious to leave - Okay to resume home torsemide from tomorrow- recommended repeat BMP in 1-2 days- patient states she has home nurses who can come anytime and get the labs and can forward to the PCP - Baseline weight seems to be around 90 kg, currently 88 kg yesterday and today (91.8 kg prior to admission 02/26->96.9 kg on admission 03/06->95.3->95.4->88.5->88.1 kg) - Ambulating around the elder independently without issues, no dyspnea or hypoxia Hyponatremia- resolved with diuresis. Likely was hypervolemic CKD3a- Cr at baseline of around 1-1.2. currently 1.36 today and lasix held today. recommend repeat in the next few days. COPD- not in exacerbation, continue trelegy LARRY- on BIPAP 09/10 per patient. continue GERD- on PPI Depression/anxiety- resumed home meds and remained stable on tele with no further bradycardia Postsurgical malabsorption- continue colesevelam Abnormal UA- urine clx negative. Asymptomatic Hypomagnesemia- Repleted IV prior to discharge. Total Time Total Time Spent Total Time Spent (In Minutes): 40 Discharge Plan Discharge Items Patient Disposition: Home - Self-Care Reason For Visit: BRADYCARDIA, SOB Discharge Diagnosis: Junctional bradycardia, acute on chronic CHF Activity: Resume your previous activity Non-emergency contact: Primary Care Provider Call non-emergency contact if: you have any medication questions and your symptoms worsen Follow-up/Referrals: Frederick Reynaga DO [Primary Care Provider] - Diet: Low Sodium (2gm) Fluids: 1500ml (6 cups) Addtl Attending Provider Instructions: STOP YOUR COREG DUE TO LOW HEART RATE you can resume your waterpill from tomorrow recommend repeat blood work (BMP) in 1-2 days follow up with your heart doctor in 1-2 weeks Continue the antibiotic doxycycline twice daily- Follow up with the family doctor regarding the lyme test and regarding the duration of antibiotic based on the results Pending Studies at Discharge: Yes (western blot for lyme) Stand-Alone Forms: My [facility] Qinec, Smoking Cessation Medications and DC Order Prescriptions: New doxycycline hyclate 100 mg Capsule 100 mg PO BID 18 Days Qty: 36 RF: 0 Continued lorazepam [Ativan] 0.5 mg tablet 0.5 mg PO TID PRN (Reason: Anxiety) RF: 0 colesevelam [WelChol] 625 mg tablet 625 mg PO TID RF: 0 montelukast [Singulair] 10 mg tablet 10 mg PO HS RF: 0 Prilosec OTC 20 mg tablet,delayed release (DR/EC) 20 mg PO BID RF: 0 mecobalamin (vitamin B12) 1,000 mcg tablet,disintegrating 1,000 mcg PO QAM RF: 0 oxycodone-acetaminophen [Percocet] 5-325 mg tablet 1 tab PO Q6H PRN (Reason: pain) Qty: 30 RF: 0 duloxetine [Cymbalta] 20 mg capsule,delayed release(DR/EC) 20 mg PO HS Qty: 30 RF: 2 Trelegy Ellipta 100-62.5-25 mcg blister with device See Rx Instructions .ROUTE .COMPLEX Qty: 60 RF: 5 desipramine 50 mg tablet 50 mg PO BID RF: 0 pregabalin [Lyrica] 150 mg capsule 150 mg PO TID Qty: 90 RF: 2 escitalopram oxalate [Lexapro] 10 mg tablet 15 mg PO DAILY RF: 0 calcitriol 0.25 mcg capsule 0.25 mcg PO DAILY Qty: 90 RF: 3 pot,mag citrate-sodium bicarb 10 mEq powder in packet 1 ea PO BID Qty: 60 RF: 6 (DME) BiPap Machine Misc See Rx Instructions .MEDSUPPLY Qty: 1 RF: 0 levothyroxine 75 mcg tablet 75 mcg PO DAILY Qty: 90 RF: 3 (DME) Flutter Valve Device See Rx Instructions .Route Qty: 1 RF: 0 ipratropium-albuterol 0.5 mg-3 mg(2.5 mg base)/3 mL Solution For Nebulization 3 ml INHALATION Q4H PRN (Reason: Shortness Of Breath Or Wheezing) RF: 0 Creon 24,000-76,000 -120,000 unit Capsule,Delayed Release(Dr/Ec) 4 cap PO TID RF: 0 ropinirole 0.25 mg tablet 0.25 mg PO HS RF: 0 Myrbetriq 50 mg tablet extended release 24 hr 50 mg PO QAM RF: 0 albuterol sulfate 90 mcg/actuation aerosol powdr breath activated 2 inh INH Q6H PRN (Reason: Shortness Of Breath Or Wheezing) RF: 0 phenazopyridine [Pyridium] 200 mg tablet 200 mg PO Q8H PRN (Reason: pain) Qty: 10 RF: 0 potassium chloride 10 mEq capsule, extended release 10 meq PO TID RF: 0 torsemide 20 mg tablet See Rx Instructions PO DAILY Qty: 60 RF: 0 risperidone 2 mg Tablet 2 mg PO HS RF: 0 tamsulosin 0.4 mg capsule 0.4 mg PO HS Qty: 30 RF: 0 Discontinued carvedilol 3.125 mg tablet 3.125 mg PO BID RF: 0 Discharge Orders: Discharge Order (Routine); Ordered 03/10/22 Ordered By: Harpreet Emmanuel Admission Data Admit Date/Time: 03/06/22 21:07 Attending Provider: Harpreet Emmanuel Admit Provider: Padmini Lomas Primary Care Provider: Frederick Reynaga Other Providers: Harpreet Emmanuel ; Rohith Patel Other Interventions: Discharge Summary Assessment (RN) Last Done: 03/10/22 13:00
== END 2022-03-10 13:50 | disposition home or self-care (01) | DRG 308 ==
LOC: ED 18:21 → SUATTDRO 21:07 → 2S 21:07

== ENCOUNTER 2022-06-02 16:25 | Inpatient (IN) ==
[2022-06-02] MEDS ORDERED: ACETAMINOPHEN 1,000 MG/100 ML VIAL IV STA (17:14)
--- NOTE | 2022-06-02 17:18 | Emergency Department Note ---
History of Present Illness General Chief complaint: Abdominal Pain Time Seen by Provider: 06/02/22 16:54 Source: patient Mode of arrival: EMS Limitations: no limitations History of Present Illness Provider complaint: Right back pain, history of kidney stones Onset (ago): hour(s) Location: back Radiation: non-radiation Pain Consistency: + constant and + colicky Maximum Pain Intensity: 10 Treatments prior to arrival: other This is a 71-year-old female presents emergency department complaining of right- sided back pain. Patient states pain feels similar to prior kidney stones. Patient states pain began abruptly several hours ago, and has been constant with intermittent episodes of a sharper pain. She states the pain is otherwise nonradiating. She denies any change in urine or stools. Patient states last week she had lithotripsy performed for left-sided stones by Dr. Marvin. She denies fevers, chills, vomiting although does admit to intermittent nausea. P atient states she was previously given Percocet to take at home for her kidney stone so she did try 1 of those this morning without any improvement in her pain. She denies any other recent trauma or change in activity. No recent change in other medications. Pt seen during a time of high acuity and national emergency pandemic while wearing PPE. Home Medications Medication Instructions Recorded Confirmed Type colesevelam 625 mg tablet (WelChol) 625 mg PO TID 06/17/18 06/02/22 History lorazepam 0.5 mg tablet (Ativan) 0.5 mg PO HS 06/17/18 06/02/22 History montelukast 10 mg tablet 10 mg PO HS 06/17/18 06/02/22 History (Singulair) ipratropium 0.5 mg-albuterol 3 mg 3 ml inhalation Q4H PRN Shortness 05/05/19 06/02/22 History (2.5 mg base)/3 mL nebulization Of Breath Or Wheezing soln [id number] 4 cap PO TID 05/05/19 06/02/22 History 24,000-76,000-120,000 unit capsule,delayed rel (Creon) omeprazole magnesium 20 mg 20 mg PO BID 05/17/19 06/02/22 History tablet,delayed release (Prilosec OTC) mecobalamin (vitamin B12) 1,000 1,000 mcg PO QAM 01/21/21 06/02/22 History mcg disintegrating tablet,sublingual risperidone 2 mg tablet 2 mg PO HS 02/27/21 06/02/22 History tamsulosin 0.4 mg capsule 0.4 mg PO HS #30 caps 04/29/21 06/02/22 Rx oxycodone-acetaminophen 5 mg-325 1 tab PO Q6H PRN pain #30 tabs 08/08/21 06/02/22 Rx mg tablet (Percocet) albuterol sulfate 90 mcg/actuation 2 inh inhalation Q6H PRN Shortness 09/24/21 06/02/22 History breath activated powder inhaler Of Breath Or Wheezing ropinirole 0.25 mg tablet 0.25 mg PO HS 09/24/21 06/02/22 History phenazopyridine 200 mg tablet 200 mg PO Q8H PRN pain #10 tabs 09/27/21 06/02/22 Rx (Pyridium) potassium chloride 10 mEq 10 meq PO TID 12/04/21 06/02/22 History capsule,extended release desipramine 50 mg tablet 50 mg PO BID 01/23/22 06/02/22 History escitalopram oxalate 10 mg tablet 15 mg PO HS 01/23/22 06/02/22 History (Lexapro) fluticasone fur. 100 mcg-umeclid 1 inh inhalation QAM 04/21/22 06/02/22 History 62.5 mcg-vilant 25 mcg inhalat.powder (Trelegy Ellipta) fosfomycin tromethamine 3 gram 1 packet PO Q OTHER DAY 1 day #1 ea 05/01/22 06/02/22 Rx oral packet calcitriol 0.25 mcg capsule 0.25 mcg PO BID #60 caps 05/02/22 06/02/22 Rx calcium carbonate 600 mg calcium 600 mg PO TID #60 tabs 05/02/22 06/02/22 Rx (1,500 mg) tablet (Calcium) duloxetine 20 mg capsule,delayed 20 mg PO HS #30 caps 05/09/22 06/02/22 Rx release (Cymbalta) torsemide 10 mg tablet 10 mg PO BID 05/09/22 06/02/22 History pregabalin 150 mg capsule (Lyrica) 150 mg PO TID #90 caps 05/14/22 06/02/22 Rx levothyroxine 88 mcg tablet 88 mcg PO QAM 05/19/22 06/02/22 History vibegron 75 mg tablet (Gemtesa) 75 mg PO DAILY #30 tabs 05/22/22 06/02/22 Rx lorazepam 0.5 mg tablet 0.5 mg PO BID PRN Anxiety 06/02/22 06/02/22 History Allergies Allergy/AdvReac Type Severity Reaction Status Date / Time bethanechol Allergy Unknown RASH, Verified 06/02/22 20:16 "FEELS FUNNY" Cephalosporins Allergy Unknown RASH, Verified 06/02/22 20:16 DIARRHEA clindamycin Allergy Unknown Unknown Verified 06/02/22 20:16 dipyridamole Allergy Unknown UNKNOWN Verified 06/02/22 20:16 droperidol Allergy Unknown Unknown Verified 06/02/22 20:16 ertapenem Allergy Unknown RASH Verified 06/02/22 20:16 levofloxacin Allergy Unknown RASH,TURNED Verified 06/02/22 20:16 RED promethazine Allergy Unknown UNKNOWN Verified 06/02/22 20:16 Sulfa (Sulfonamide Allergy Unknown Generalized Verified 06/02/22 20:16 Antibiotics) Rash tobramycin Allergy Unknown UNKNOWN Verified 06/02/22 20:16 doxycycline AdvReac Severe severe Verified 05/22/22 12:31 Diarrhea, nausea aspirin AdvReac Unknown BLEEDING Verified 05/22/22 12:31 bupropion AdvReac Unknown NERVOUS Verified 05/22/22 12:31 REACTION cephalexin AdvReac Unknown GI SYMPTOMS Verified 05/22/22 12:31 metolazone AdvReac Unknown ELECTROLYTE Verified 05/22/22 12:31 ISSUES morphine AdvReac Unknown NERVOUS Verified 05/22/22 12:31 REACTION TO IT nitrofurantoin AdvReac Unknown Vomiting Verified 05/22/22 12:31 [From Macrobid] prochlorperazine AdvReac Unknown NERVOUS Verified 05/22/22 12:31 REACTION tedizolid AdvReac Unknown GI SYMPTOMS Verified 05/22/22 12:31 Past Med/Surg History Medical History Asthma Atherosclerosis of both lower extremities Chronic diastolic (congestive) heart failure Chronic kidney disease Chronic sinusitis Chronic urinary tract infection Chronic venous insufficiency COPD (chronic obstructive pulmonary disease) Depression GERD without esophagitis H/O concussion History of anemia History of esophageal dilatation Hyperlipidemia Hypothyroidism Incisional hernia Kidney stones Lumbar transverse process fracture MRSA (methicillin resistant staph aureus) culture positive Obesity Pancreatic insufficiency Peripheral neuropathy Port-A-Cath in place PUD (peptic ulcer disease) Pulmonary hypertension PVC (premature ventricular contraction) Reactive hypoglycemia Secondary hyperparathyroidism Sepsis Short bowel syndrome Sleep apnea SOB (shortness of breath) on exertion Trouble swallowing Urinary leakage Wrist injury Surgical History H/O shoulder surgery History of appendectomy History of cardiac cath History of cholecystectomy History of colonoscopy History of cystoscopy History of esophagogastroduodenoscopy (EGD) History of gastrointestinal surgery History of joint replacement History of knee replacement procedure of right knee History of open reduction and internal fixation (ORIF) procedure History of partial gastrectomy History of prior ablation treatment History of sinus surgery History of tonsillectomy and adenoidectomy History of total abdominal hysterectomy and bilateral salpingo-oophorectomy S/P right rotator cuff repair S/P ureteral stent placement Status post laser lithotripsy of ureteral calculus Family History Mother Family history of diabetes mellitus Sister Family history of diabetes mellitus Family history of breast cancer Father Esophageal cancer Other Family history non-contributory No family history of adverse response to anesthesia Social History Smoking Status: Never smoker Second Hand Exposure: No; Hx Alcohol Use: No Hx Substance Use: No Preferred Language: Belarusian Communication Ability: Effective Visual Impairment: No Limitations Postal Worker Required: No Beliefs That Will Affect Care: None marital status: Single Current Living Situation: Alone Current Living Situation Comment: [facility] How many Children do You have: 0 Other Information That Helps Us Care for You: No Feels Safe at Home: Yes Safety Concerns: Feels Safe At This Time Assistive Devices: Walker Review of Systems A total of 10 systems reviewed and were otherwise negative All systems reviewed & are unremarkable except as noted in HPI & below Physical Exam Vital Signs Vital Signs - 24 hr 06/02/22 16:32 06/02/22 18:28 Temperature 36.7 C Temperature Source Oral Pulse Rate 65 Pulse Rate [Apical] 76 Respiratory Rate 20 15 Respiratory Depth Normal Blood Pressure 125/67 Blood Pressure Mean 86 Pulse Oximetry 96 95 Oxygen Delivery Method Room Air Room Air Sepsis Recent Fever Within 48 Hours No Sepsis New/Unexplained Change in Mental Status N/A Sepsis Action Taken by Nursing No Action Required GENERAL: alert, uncomfortable appearing, well nourished, no distress, non-toxic EYE EXAM: normal conjunctiva, PERRL and EOM's grossly intact OROPHARYNX: no exudate, no erythema, lips, buccal mucosa, and tongue normal and mucous membranes are moist NECK: supple, no nuchal rigidity, no adenopathy, non-tender LUNGS: Clear to auscultation. Normal chest wall mechanics, no w/r/r HEART: no murmurs, S1 normal and S2 normal, port noted right anterior superior chest wall ABDOMEN: abdomen soft, non-tender, normo-active bowel sounds, no masses, no rebound or guarding. BACK: Back is symmetrical on inspection and there is no deformity, no midline tenderness, no CVA tenderness. Pain with palpation along right lateral lumbar area. SKIN: no rashes and no bruising UPPER EXTREMITIES: upper extremities are grossly normal. FROM, nml pulses b/l. LOWER EXTREMITIES: No pitting edema. FROM, nml pulses b/l. NEURO EXAM: Normal sensorium, cranial nerves II-XII grossly intact, normal speech, no gross weakness of arms, no gross weakness of legs. Gross sensation intact. Course Course 1924: Pt updated at bedside. Still having pain. Discussed allergies and urine culture with pharmacy. She has previously taken cipro without any reaction. 1934: Discussed with Augie Gonzales PA-C covering urology. Administered Medications Lipase/Protease/Amylase (Pancreaze (Lipase 10,500u) Cap) 9 cap PO TIDM [facility] Stop: 07/03/22 07:59 Last Admin: 06/03/22 16:44 Dose: 9 cap Documented By: Admin: 06/03/22 12:01 Dose: 9 cap Documented By: Admin: 06/03/22 08:21 Dose: 9 cap Documented By: SAWYER Calcitriol (Calcitriol 0.25 Mcg Capsule) 0.25 mcg PO BID [facility] Stop: 07/03/22 08:59 Last Admin: 06/03/22 20:24 Dose: 0.25 mcg Documented By: Admin: 06/03/22 08:22 Dose: 0.25 mcg Documented By: SAWYER Cyanocobalamin (Cyanocobalamin (B-12) 500 Mcg Tablet) 1,000 mcg PO QAM [facility] Stop: 07/03/22 08:59 Last Admin: 06/03/22 08:22 Dose: 1,000 mcg Documented By: SAWYER Desipramine HCl (Desipramine Hcl 50 Mg Tab) 50 mg PO BID [facility] Stop: 07/03/22 08:59 Last Admin: 06/03/22 20:24 Dose: 50 mg Documented By: Admin: 06/03/22 08:22 Dose: 50 mg Documented By: SAWYER Duloxetine HCl (Duloxetine Hcl 20 Mg Cap) 20 mg PO [facility] Stop: 07/03/22 20:59 Last Admin: 06/03/22 20:24 Dose: 20 mg Documented By: LESA Enoxaparin Sodium (Enoxaparin Inj 40 Mg/0.4 Ml Syr) [facility] [place] Stop: 07/03/22 08:59 Last Admin: 06/03/22 08:22 Dose: 40 mg Documented By: SAWYER Escitalopram Oxalate (Escitalopram Oxalate 10 Mg Tab) 15 mg PO [facility] Stop: 07/03/22 20:59 Last Admin: 06/03/22 20:23 Dose: 15 mg Documented By: LESA Fluticasone Furoate (Fluticasone Furoate 100mcg 14 Puffs/Inhaler) 1 puffs INH DAILY [facility] Stop: 07/03/22 08:59 Last Admin: 06/03/22 08:21 Dose: 1 puffs Documented By: SAWYER Heparin Sodium (Porcine) (Heparin 100 Unit/Ml 5ml Flush) 5 ml FLUSH PRN PRN PRN Reason: Flush Stop: 07/03/22 03:05 Last Admin: 06/03/22 18:37 Dose: 5 ml Documented By: HANY Aztreonam 2,000 mg/ Dextrose 110 mls @ 100 mls/hr IV Q8H [facility]; Protocol Stop: 06/13/22 05:59 Last Infusion: 06/03/22 23:28 Dose: 100 mls/hr Documented By: Admin: 06/03/22 22:21 Dose: 100 mls/hr Documented By: Infusion: 06/03/22 15:00 Dose: 0 mls/hr Documented By: Admin: 06/03/22 13:38 Dose: 100 mls/hr Documented By: Infusion: 06/03/22 07:06 Dose: 0 mls/hr Documented By: Admin: 06/03/22 06:00 Dose: 100 mls/hr Documented By: CASIMIRO Levothyroxine Sodium (Levothyroxine Sodium 88 Mcg Tablet) 88 mcg PO DAILYBB [facility] Stop: 07/03/22 06:29 Last Admin: 06/03/22 05:59 Dose: 88 mcg Documented By: CASIMIRO Lorazepam (Lorazepam 0.5 Mg Tab) 0.5 mg PO BID PRN PRN Reason: Anxiety Stop: 07/02/22 22:45 Last Admin: 06/02/22 23:16 Dose: 0.5 mg Documented By: CASIMIRO Lorazepam (Lorazepam 0.5 Mg Tab) 0.5 mg PO [facility] Stop: 07/03/22 20:59 Last Admin: 06/03/22 20:22 Dose: 0.5 mg Documented By: LESA Montelukast Sodium (Montelukast Sodium 10 Mg Tablet) 10 mg PO [facility] Stop: 07/03/22 20:59 Last Admin: 06/03/22 20:24 Dose: 10 mg Documented By: LESA Multivitamins/Minerals (Calcium 600mg + Vit D 400 Iu Tab) 1 tab PO TID [facility] Stop: 07/03/22 08:59 Last Admin: 06/03/22 20:23 Dose: 1 tab Documented By: Admin: 06/03/22 13:38 Dose: 1 tab Documented By: Admin: 06/03/22 08:22 Dose: 1 tab Documented By: SAWYER Oxycodone HCl (Oxycodone Hcl Ir 5 Mg Tab (Immediate Release)) 5 - 10 mg PO QID PRN PRN Reason: Pain Stop: 06/16/22 21:28 Last Admin: 06/03/22 11:13 Dose: 10 mg Documented By: Admin: 06/03/22 06:14 Dose: 10 mg Documented By: CASIMIRO Pantoprazole Sodium (Pantoprazole 40 Mg Tab) 40 mg PO BID [facility] Stop: 07/03/22 08:59 Last Admin: 06/03/22 20:24 Dose: 40 mg Documented By: Admin: 06/03/22 08:22 Dose: 40 mg Documented By: SAWYER Phenazopyridine HCl (Phenazopyridine Hcl 200 Mg Tab) 200 mg PO Q8H PRN PRN Reason: pain Stop: 07/02/22 22:45 Last Admin: 06/03/22 08:22 Dose: 200 mg Documented By: Admin: 06/02/22 23:40 Dose: 200 mg Documented By: CASIMIRO Pregabalin (Pregabalin 150 Mg Cap) 150 mg PO TID C[facility] Stop: 07/02/22 22:45 Last Admin: 06/03/22 20:22 Dose: 150 mg Documented By: Admin: 06/03/22 13:38 Dose: 150 mg Documented By: Admin: 06/03/22 08:22 Dose: 150 mg Documented By: Admin: 06/02/22 23:41 Dose: 150 mg Documented By: CASIMIRO Risperidone (Risperidone 2 Mg Tablet) 2 mg PO HS CATE Stop: 07/02/22 22:45 Last Admin: 06/03/22 20:24 Dose: 2 mg Documented By: Admin: 06/02/22 23:40 Dose: 2 mg Documented By: CASIMIRO Ropinirole HCl (Ropinirole Hcl 0.25 Mg Tablet) 0.25 mg PO HS CATE Stop: 07/02/22 22:45 Last Admin: 06/03/22 20:22 Dose: 0.25 mg Documented By: Admin: 06/02/22 23:40 Dose: 0.25 mg Documented By: CASIMIRO Tamsulosin HCl (Tamsulosin Hcl 0.4 Mg Cap) 0.4 mg PO HS CATE Stop: 07/03/22 20:59 Last Admin: 06/03/22 20:23 Dose: 0.4 mg Documented By: LESA Umeclidinium/Vilanterol (Umeclidinium/Vilanterol 62.5/25mcg 7 Puffs/Inhaler) 1 puffs INH DAILY [facility] Stop: 07/03/22 08:59 Last Admin: 06/03/22 08:21 Dose: 1 puffs Documented By: SAWYER Discontinued Medications Hydromorphone HCl (Hydromorphone Inj 0.5 Mg/0.5 Ml Syr) 0.25 mg IV NOW STA Stop: 06/02/22 19:38 Last Admin: 06/02/22 20:06 Dose: 0.25 mg Documented By: SIMONE Acetaminophen (Ofirmev) 1,000 mg in 100 mls @ 400 mls/hr IV NOW STA Stop: 06/02/22 17:28 Last Infusion: 06/02/22 17:32 Dose: 0 mls/hr Documented By: Admin: 06/02/22 17:17 Dose: 400 mls/hr Documented By: SIMONE Ciprofloxacin (Cipro / D5w) 400 mg in 200 mls @ 100 mls/hr IV NOW STA; Protocol Stop: 06/02/22 21:29 Last Infusion: 06/02/22 21:21 Dose: 0 mls/hr Documented By: Admin: 06/02/22 20:06 Dose: 100 mls/hr Documented By: SIMONE Sodium Chloride (Nss 1000ml) 1,000 mls @ 125 mls/hr IV .Q8H CATE Stop: 07/02/22 19:44 Last Infusion: 06/02/22 22:53 Dose: 0 mls/hr Documented By: Admin: 06/02/22 20:05 Dose: 125 mls/hr Documented By: SIMONE Aztreonam 2,000 mg/ Dextrose 110 mls @ 100 mls/hr IV NOW STA; Protocol Stop: 06/02/22 21:47 Last Infusion: 06/02/22 22:28 Dose: 0 mls/hr Documented By: Admin: 06/02/22 21:21 Dose: 100 mls/hr Documented By: SIMONE Sodium Chloride (Nss 1000ml) 1,000 mls @ 60 mls/hr IV .[id number] CATE Stop: 07/03/22 02:14 Last Infusion: 06/03/22 18:37 Dose: 0 mls/hr Documented By: Admin: 06/03/22 02:30 Dose: 60 mls/hr Documented By: CASIMIRO Godoycellaneous (Vibegron [Gemtesa]: Order Awaiting Action) 1 each N/A QS CATE Stop: 07/03/22 07:59 Last Admin: 06/03/22 08:22 Dose: Not Given Documented By: SAWYER Lima (Colesevelam [Welchol]: Order Awaiting Action) 1 each N/A QS CATE Stop: 07/03/22 07:59 Last Admin: 06/03/22 08:22 Dose: Not Given Documented By: SAWYER Potassium Chloride (Potassium Chloride Crtab 20 Meq Tabcr) 40 meq PO NOW STA Stop: 06/02/22 19:35 Last Admin: 06/02/22 20:05 Dose: 40 meq Documented By: SIMONE Potassium Chloride (Potassium Chloride Crtab 20 Meq Tabcr) 40 meq PO NOW STA Stop: 06/02/22 21:30 Last Admin: 06/02/22 21:47 Dose: 40 meq Documented By: SIMONE Tamsulosin HCl (Tamsulosin Hcl 0.4 Mg Cap) 0.4 mg PO NOW ONE Stop: 06/02/22 20:13 Last Admin: 06/02/22 20:40 Dose: 0.4 mg Documented By: SIMONE Medical Decision Making Differential Diagnosis Differential diagnosis: Etiologies such as shingles, pyelonephritis/UTI, renal colic, appendicitis, diverticulitis, mesenteric ischemia, torsion, aortic pathology, infections, inflammatory bowel disease, bowel obstruction, PUD, biliary pathology, as well as others were entertained. Medical Records Attestation: I reviewed the patient's medical records. Home Medications Current Medication List: was personally reviewed by me Laboratory Data Attestation: I reviewed the patient's lab results. Result diagrams: 06/03/22 06:23 06/03/22 06:23 Lab Results 06/02/22 06/02/22 06/02/22 Range/Units 16:48 16:48 17:14 WBC 10.68 (4.8-10.8) K/ul RBC 4.09 (3.93-5.22) M/uL Hgb 12.1 (12.0-16.0) g/dl Hct 35.6 (34.1-44.9) % MCV 87.0 (80.0-100.0) fL MCH 29.6 (25.0-34.0) pg MCHC 34.0 (32.0-36.0) g/dL RDW Std Deviation 40.6 (36.4-46.3) fL RDW Coeff of David 12.9 (11.5-14.5) % Plt Count 185 (130-400) K/uL MPV 10.6 (9.4-12.3) fL Immature Gran % (Auto) 0.3 % Neut % (Auto) 79.2 % Lymph % (Auto) 10.2 % Morrow % (Auto) 9.7 % Eos % (Auto) 0.3 % Baso % (Auto) 0.3 % Neut # (Auto) 8.46 H (1.4-6.5) K/uL Lymph # (Auto) 1.09 L (1.2-3.4) K/uL Morrow # (Auto) 1.04 H (0.24-0.82) K/uL Eos # (Auto) 0.03 (0-0.50) K/uL Baso # (Auto) 0.03 (0-0.2) K/uL Immature Gran # (Auto) 0.03 H (0.00-0.02) K/uL PT 11.3 (9.0-12.0) Seconds INR 1.1 (0.9-1.1) Sodium 130 L (136-145) mmol/L Potassium 2.9 L (3.5-5.1) mmol/L Chloride 91 L (98-107) mmol/L Carbon Dioxide 30 (21-32) mmol/L Anion Gap 9 (3-11) BUN 42 H (6-23) mg/dl Creatinine 1.00 (0.6-1.2) mg/dl Est Cr Clr Drug Dosing 55.2 ml/min Est GFR ( Amer) 66.6 ml/min Est GFR (Non-Af Amer) 57.4 ml/min BUN/Creatinine Ratio 42.0 H (10-20) Glucose 102 H (70-99(Fasting)) mg/dl Calcium 8.7 (8.5-10.1) mg/dl Magnesium 2.1 (1.7-2.4) mg/dl Total Bilirubin 0.5 (0.2-1.0) mg/dl AST 17 (13-39) U/L ALT 16 (7-52) U/L Alkaline Phosphatase 109 H (34-104) U/L Total Protein 6.5 (6.0-8.3) gm/dl Albumin 3.8 (3.4-5.0) gm/dl Globulin 2.7 (2.5-4.0) gm/dl Albumin/Globulin Ratio 1.4 (0.9-2) Procalcitonin (0-0.5) ng/ml TSH (0.300-4.500) uIu/ml 06/02/22 06/02/22 Range/Units 19:13 19:13 WBC (4.8-10.8) K/ul RBC (3.93-5.22) M/uL Hgb (12.0-16.0) g/dl Hct (34.1-44.9) % MCV (80.0-100.0) fL MCH (25.0-34.0) pg MCHC (32.0-36.0) g/dL RDW Std Deviation (36.4-46.3) fL RDW Coeff of David (11.5-14.5) % Plt Count (130-400) K/uL MPV (9.4-12.3) fL Immature Gran % (Auto) % Neut % (Auto) % Lymph % (Auto) % Morrow % (Auto) % Eos % (Auto) % Baso % (Auto) % Neut # (Auto) (1.4-6.5) K/uL Lymph # (Auto) (1.2-3.4) K/uL Morrow # (Auto) (0.24-0.82) K/uL Eos # (Auto) (0-0.50) K/uL Baso # (Auto) (0-0.2) K/uL Immature Gran # (Auto) (0.00-0.02) K/uL PT (9.0-12.0) Seconds INR (0.9-1.1) Sodium (136-145) mmol/L Potassium (3.5-5.1) mmol/L Chloride (98-107) mmol/L Carbon Dioxide (21-32) mmol/L Anion Gap (3-11) BUN (6-23) mg/dl Creatinine (0.6-1.2) mg/dl Est Cr Clr Drug Dosing ml/min Est GFR ( Amer) ml/min Est GFR (Non-Af Amer) ml/min BUN/Creatinine Ratio (10-20) Glucose (70-99(Fasting)) mg/dl Calcium (8.5-10.1) mg/dl Magnesium (1.7-2.4) mg/dl Total Bilirubin (0.2-1.0) mg/dl AST (13-39) U/L ALT (7-52) U/L Alkaline Phosphatase (34-104) U/L Total Protein (6.0-8.3) gm/dl Albumin (3.4-5.0) gm/dl Globulin (2.5-4.0) gm/dl Albumin/Globulin Ratio (0.9-2) Procalcitonin 0.12 (0-0.5) ng/ml TSH 1.045 (0.300-4.500) uIu/ml Imaging Data Radiologist's Impression: Abdomen/Pelvis CT 06/02/22 17:13 CT abd pelvis wo con CLINICAL HISTORY: right flank pain, hx stones TECHNIQUE: Helical axial images of the abdomen and pelvis were obtained. Automated dose lowering techniques and/or adjustment according to patient size were utilized for this exam. This exam was performed without intravenous contrast. CT DOSE: 970.90 mGy.cm COMPARISON: Comparison is made to CT abdomen pelvis 04/23/2022 FINDINGS: Lower chest: Bibasilar atelectasis versus scarring is seen. Liver: The liver measures 15 cm on craniocaudal dimension. There is suggestion of nodularity of the surface. Gallbladder and biliary tree: Patient is status post cholecystectomy. Physiologic prominence of the biliary ducts is noted. Pancreas: Fatty replacement of the pancreas is seen. Spleen: Unremarkable. Adrenals: Unremarkable. Kidneys and ureters: Numerous nonobstructive stones are seen bilaterally. In addition, there is right hydronephrosis and hydroureter. There is a stone in the right distal ureter measuring approximately 2 mm. The right kidney is atrophic. Bladder: Bladder is underdistended but mildly thickened. Reproductive organs: Patient is status post hysterectomy. Bowel: Patient is status post bowel resection. The appendix is surgically absent. There is postsurgical changes of gastric bypass surgery with a hiatal hernia. Lymph nodes Retroperitoneal: Unremarkable. Pelvic: Unremarkable. Mesenteric: Unremarkable. Peritoneum: Normal. Vessels: Unremarkable. Abdominal wall: There is diastases of the abdominal wall musculature with bulging of multiple bowel loops into the subcutaneous tissues. Bones: Degenerative changes in the visualized spine. IMPRESSION: 1. There is a 2 mm obstructive stone in the right distal ureter with resulting hydronephrosis/hydroureter. Additional nonobstructive stones are seen bilaterally. 2. Bladder wall thickening may represent chronic outlet obstruction, however cystitis cannot be excluded. Correlation with urinalysis is recommended. 3. Additional findings as above. ACT 112: Negative or not required by law. Electronically signed by: Evan Ventura M.D. 06/02/2022 6:37 PM MDM Narrative An order was placed for continuous cardiac monitoring. The monitor shows a rate of _72__ with _normal sinus__ rhythm. This is a 71 yo female who presents with acute onset right back pain consistent with prior stones. UA concerning for concurrent infection. CT revealed 2 mm stone in distal ureter. Patient appears clinically dehydrated and prerenal on labs. She was afebrile and VS stable. Patient cautiously hydrated and given meds for pain. Case discussed with hospitalist for additional evaluation and with covering PA-C for urology. Patient with recent lithotripsy for left nephrolithiasis. No evidence of bacteremia/sepsis. I do not suspect additional spine pathology at this time. All results discussed with patient at bedside. Impression & Plan Acute right-sided back pain, Ureterolithiasis, Acute UTI (urinary tract infec tion), Acute dehydration Discharge Plan Visit Data Chief Complaint: Abdominal Pain ED Provider: Florence Kilgore Discharge Problem: Acute right-sided back pain, Ureterolithiasis, Acute UTI (urinary tract infection), Acute dehydration Patient Disposition: Admitted As Inpatient Discharge Instructions Interventions: ED Discharge Assessment Last Done: 06/02/22 22:26
[2022-06-02 17:39] LABS: Appearance Urine Clear (Clear); Bacteria Urine Automated 4+ (Negative); Bilirubin Urine Negative (Negative); Blood Urine 2+ (Negative); Color Urine Yellow; Epithelial Cell Urine Auto 0-5 /lpf (0-5); Glucose Urine UA Negative (Negative); Ketones Urine Negative (Negative); Leukocyte Esterase Urine 3+ (Negative); Nitrite Urine Negative (Negative); Protein Urine 1+ (Negative); RBC Urine Automated 0-4 /hpf (0-4); Specific Gravity Urine 1.005 (1.000-1.030); Urobilinogen Urine Negative (Negative); WBC Urine Automated >30 /hpf (0-5)
--- NOTE | 2022-06-02 18:39 | CT Scan Report ---
CT abd pelvis wo con CLINICAL HISTORY: right flank pain, hx stones TECHNIQUE: Helical axial images of the abdomen and pelvis were obtained. Automated dose lowering tech niques and/or adjustment according to patient size were utilized for this exam. This exam was perfor med without intravenous contrast. CT DOSE: 970.90 mGy.cm COMPARISON: Comparison is made to CT abdomen pelvis 04/23/2022 FINDINGS: Lower chest: Bibasilar atelectasis versus scarring is seen. Liver: The liver measures 15 cm on craniocaudal dimension. There is suggestion of nodularity of the s urface. Gallbladder and biliary tree: Patient is status post cholecystectomy. Physiologic prominence of the b iliary ducts is noted. Pancreas: Fatty replacement of the pancreas is seen. Spleen: Unremarkable. Adrenals: Unremarkable. Kidneys and ureters: Numerous nonobstructive stones are seen bilaterally. In addition, there is right hydronephrosis and hydroureter. There is a stone in the right distal ureter measuring approximately 2 mm. The right kidney is atrophic. Bladder: Bladder is underdistended but mildly thickened. Reproductive organs: Patient is status post hysterectomy. Bowel: Patient is status post bowel resection. The appendix is surgically absent. There is postsurgic al changes of gastric bypass surgery with a hiatal hernia. Lymph nodes Retroperitoneal: Unremarkable. Pelvic: Unremarkable. Mesenteric: Unremarkable. Peritoneum: Normal. Vessels: Unremarkable. Abdominal wall: There is diastases of the abdominal wall musculature with bulging of multiple bowel l oops into the subcutaneous tissues. Bones: Degenerative changes in the visualized spine. IMPRESSION: 1. There is a 2 mm obstructive stone in the right distal ureter with resulting hydronephrosis/hydrou reter. Additional nonobstructive stones are seen bilaterally. 2. Bladder wall thickening may represent chronic outlet obstruction, however cystitis cannot be excl uded. Correlation with urinalysis is recommended. 3. Additional findings as above. ACT 112: Negative or not required by law. Electronically signed by: Evan Ventura M.D. 06/02/2022 6:37 PM
[2022-06-02 18:40] LABS: Basophils # (auto) 0.03 K/uL (0-0.2); Basophils % (auto) 0.3 %; Eosinophils # (auto) 0.03 K/uL (0-0.50); Eosinophils % (auto) 0.3 %; Hematocrit (blood only) 35.6 % (34.1-44.9); Hemoglobin 12.1 g/dl (12.0-16.0); Immature Granulocytes # (auto) 0.03 K/uL (0.00-0.02); Immature Granulocytes % (auto) 0.3 %; Lymphocytes # (auto) 1.09 K/uL (1.2-3.4); Lymphocytes % (auto) 10.2 %; Mean Corpuscular Hemoglobin 29.6 pg (25.0-34.0); Mean Platelet Volume 10.6 fL (9.4-12.3); Monocytes # (auto) 1.04 K/uL (0.24-0.82); Monocytes % (auto) 9.7 %; Neutrophils # (auto) 8.46 K/uL (1.4-6.5); Neutrophils % (auto) 79.2 %; Platelet Count 185 K/uL (130-400); RDW Coefficient of Variation 12.9 % (11.5-14.5); RDW Standard Deviation 40.6 fL (36.4-46.3); Red Blood Count 4.09 M/uL (3.93-5.22); White Blood Count 10.68 K/ul (4.8-10.8)
[2022-06-02 18:54] LABS: INR 1.1 (0.9-1.1); Prothrombin Time 11.3 Seconds (9.0-12.0)
[2022-06-02 19:18] LABS: Albumin Globulin Ratio 1.4 (0.9-2); Albumin Level 3.8 gm/dl (3.4-5.0); Bilirubin,Total 0.5 mg/dl (0.2-1.0); Calcium 8.7 mg/dl (8.5-10.1); Creatinine Clr Calc Pharmacy 55.2 ml/min; Est GFR (African American) 66.6 ml/min; Est GFR (Non-African American) 57.4 ml/min; Globulin 2.7 gm/dl (2.5-4.0); Potassium 2.9 mmol/L (3.5-5.1); Total Protein 6.5 gm/dl (6.0-8.3)
[2022-06-02] MEDS ORDERED: CIPROFLOXACIN / D5W 400 MG/200 ML BAG IV STA (19:30)
[2022-06-02] MEDS ORDERED: POTASSIUM CHLORIDE CRTAB 20 MEQ TABCR PO STA ×2 (19:34→21:29)
[2022-06-02] MEDS ORDERED: HYDROmorphone INJ 0.5 MG/0.5 ML SYR IV STA (19:37)
[2022-06-02] MEDS ORDERED: SODIUM CHLORIDE 0.9% 1000ML 1,000 ML IV SCH (19:45)
[2022-06-02] MEDS ORDERED: TAMSULOSIN HCL 0.4 MG CAP PO ONE (20:12)
--- NOTE | 2022-06-02 20:21 | Urology Consultation ---
Date of Consultation June 02, 2022 Assessment & Plan (1) Bilateral nephrolithiasis: The patient is being admitted on the hospitalist service. We recommend proceeding as follows: Continue resuscitation with intravenous fluids Continue Flomax for expulsive therapy Continue analgesics Provide antiemetics if needed Antibiotics in form of Cipro has been initiated. We recommend continuing this medication pending the urine culture results, at which time antibiotics can be tailored based on these results At the present time the patient is noted to be afebrile, normotensive, and without tachycardia. Her creatinine is noted to be normal. Therefore I do not feel the patient requires an urgent procedure at this time. I would however, recommend making her n.p.o. after midnight, and the patient be reassessed in the morning to determine if if cystoscopy will be required. History of Present Illness Reason for Consultation: Nephrolithiasis History of Present Illness This is a 71-year-old female who is known to Dr. Marvin of [facility]. The patient underwent a left ESWL procedure on 05/22/2022. Patient notes that she was doing reasonably well at home. She does note that she has some intermittent right-sided flank pain from time to time however earlier this morning she developed severe right-sided flank pain with radiation to her abdomen. With the symptoms she has had occasional chills but denies any fevers. She denies any nausea or vomiting. She notes no modifying factors to the pain other than pain medicines administered in the emergency department. In addition the patient reports dysuria along with urinary frequency. She specifically denies any hematuria. Her most recent oral intake was at noon today. Since arrival to the emergency department the patient has had labs and imaging which I independent reviewed. A CBC revealed white blood cell count, hemoglobin, hematocrit, and platelet count were all normal. Chemistry profile showed sodium and potassium are 130 and 2.9 respectively. Her BUN had a slight elevation at 42 and her creatinine was normal at 1.0. The patient did have a urinalysis that showed 3+ leukocyte Estrace and greater than 30 white blood cells per high-power field. She was also noted to have 4+ bacteria on this study. The specimen was negative for nitrites. In addition to these labs the patient had a CT scan of her abdomen and pelvis that showed the patient had a 2 mm obstructing kidney stone in the right distal ureter with associated hydronephrosis. There were some additional nonobstructing kidney stones noted bilaterally. Since arrival to the hospital the patient has received intravenous fluids, antibiotics in form of Cipro, Flomax, and a urine culture has been sent. At the time of my visit she was noted to be afebrile, hemodynamically stable, and was in no distress. Her pain was well controlled. Allergies Allergy/AdvReac Type Severity Reaction Status Date / Time bethanechol Allergy Unknown RASH, Verified 06/02/22 20:16 "FEELS FUNNY" Cephalosporins Allergy Unknown RASH, Verified 06/02/22 20:16 DIARRHEA clindamycin Allergy Unknown Unknown Verified 06/02/22 20:16 dipyridamole Allergy Unknown UNKNOWN Verified 06/02/22 20:16 droperidol Allergy Unknown Unknown Verified 06/02/22 20:16 ertapenem Allergy Unknown RASH Verified 06/02/22 20:16 levofloxacin Allergy Unknown RASH,TURNED Verified 06/02/22 20:16 RED promethazine Allergy Unknown UNKNOWN Verified 06/02/22 20:16 Sulfa (Sulfonamide Allergy Unknown Generalized Verified 06/02/22 20:16 Antibiotics) Rash tobramycin Allergy Unknown UNKNOWN Verified 06/02/22 20:16 doxycycline AdvReac Severe severe Verified 05/22/22 12:31 Diarrhea, nausea aspirin AdvReac Unknown BLEEDING Verified 05/22/22 12:31 bupropion AdvReac Unknown NERVOUS Verified 05/22/22 12:31 REACTION cephalexin AdvReac Unknown GI SYMPTOMS Verified 05/22/22 12:31 metolazone AdvReac Unknown ELECTROLYTE Verified 05/22/22 12:31 ISSUES morphine AdvReac Unknown NERVOUS Verified 05/22/22 12:31 REACTION TO IT nitrofurantoin AdvReac Unknown Vomiting Verified 05/22/22 12:31 [From Macrobid] prochlorperazine AdvReac Unknown NERVOUS Verified 05/22/22 12:31 REACTION tedizolid AdvReac Unknown GI SYMPTOMS Verified 05/22/22 12:31 Home Medications Medication Instructions Recorded Confirmed Type colesevelam 625 mg tablet (WelChol) 625 mg PO TID 06/17/18 05/22/22 History lorazepam 0.5 mg tablet (Ativan) 0.5 mg PO TID PRN Anxiety 06/17/18 05/22/22 History montelukast 10 mg tablet 10 mg PO HS 06/17/18 05/22/22 History (Singulair) ipratropium 0.5 mg-albuterol 3 mg 3 ml inhalation Q4H PRN Shortness 05/05/19 05/22/22 History (2.5 mg base)/3 mL nebulization Of Breath Or Wheezing soln ljpubn-hifnoqku-yafwsjy 4 cap PO TID 05/05/19 05/22/22 History 24,000-76,000-120,000 unit capsule,delayed rel (Creon) omeprazole magnesium 20 mg 20 mg PO BID 05/17/19 05/22/22 History tablet,delayed release (Prilosec OTC) mecobalamin (vitamin B12) 1,000 1,000 mcg PO QAM 01/21/21 05/22/22 History mcg disintegrating tablet,sublingual risperidone 2 mg tablet 2 mg PO HS 02/27/21 05/22/22 History tamsulosin 0.4 mg capsule 0.4 mg PO HS #30 caps 04/29/21 05/22/22 Rx oxycodone-acetaminophen 5 mg-325 1 tab PO Q6H PRN pain #30 tabs 08/08/21 05/22/22 Rx mg tablet (Percocet) albuterol sulfate 90 mcg/actuation 2 inh inhalation Q6H PRN Shortness 09/24/21 05/22/22 History breath activated powder inhaler Of Breath Or Wheezing ropinirole 0.25 mg tablet 0.25 mg PO HS 09/24/21 05/22/22 History phenazopyridine 200 mg tablet 200 mg PO Q8H PRN pain #10 tabs 09/27/21 05/22/22 Rx (Pyridium) potassium chloride 10 mEq 10 meq PO TID 12/04/21 05/22/22 History capsule,extended release desipramine 50 mg tablet 50 mg PO BID 01/23/22 05/22/22 History escitalopram oxalate 10 mg tablet 15 mg PO HS 01/23/22 05/22/22 History (Lexapro) fluticasone fur. 100 mcg-umeclid 1 inh inhalation QAM 04/21/22 05/22/22 History 62.5 mcg-vilant 25 mcg inhalat.powder (Trelegy Ellipta) fosfomycin tromethamine 3 gram 1 packet PO Q OTHER DAY 1 day #1 ea 05/01/22 05/22/22 Rx oral packet calcitriol 0.25 mcg capsule 0.25 mcg PO BID #60 caps 05/02/22 05/22/22 Rx calcium carbonate 600 mg calcium 600 mg PO TID #60 tabs 05/02/22 05/22/22 Rx (1,500 mg) tablet (Calcium) duloxetine 20 mg capsule,delayed 20 mg PO HS #30 caps 05/09/22 05/22/22 Rx release (Cymbalta) torsemide 10 mg tablet 10 mg PO BID 05/09/22 05/22/22 History pregabalin 150 mg capsule (Lyrica) 150 mg PO TID #90 caps 05/14/22 05/22/22 Rx levothyroxine 88 mcg tablet 88 mcg PO QAM 05/19/22 05/22/22 History vibegron 75 mg tablet (Gemtesa) 75 mg PO DAILY #30 tabs 05/22/22 Rx lorazepam 0.5 mg tablet 0.5 mg PO BID PRN Anxiety 06/02/22 06/02/22 History Patient History Medical History Asthma Atherosclerosis of both lower extremities Chronic diastolic (congestive) heart failure Hospitalized March 2022 Follows w/[facility] (Dr. Otoole) Chronic kidney disease stage 3b Chronic sinusitis Chronic urinary tract infection Instructed to take pre op antibiotics prior to upcoming Lithotripsy on 05/22/22. States she will start 05/20/22 in the morning Chronic venous insufficiency COPD (chronic obstructive pulmonary disease) Depression GERD without esophagitis H/O concussion History of anemia History of esophageal dilatation Hyperlipidemia per records Hypothyroidism Incisional hernia Abdominal (from multiple surgeries/feeding tube) Kidney stones Lumbar transverse process fracture Pt reports lower back detioriating - can't lie flat/sleep on a chair MRSA (methicillin resistant staph aureus) culture positive History of Left wrist Had 3 nasal swab and all negative (through [facility] per pt) Obesity Pancreatic insufficiency chronic pancreatitis Peripheral neuropathy Port-A-Cath in place right side due to poor vascular access PUD (peptic ulcer disease) Had feeding tube for 28 years (has been removed for 11 years) Pulmonary hypertension mild per 07/[address] report PVC (premature ventricular contraction) Reactive hypoglycemia Secondary hyperparathyroidism Sepsis 05/2020 @ [facility], urosepsis 2/2 obstructing renal stone, S/P cysto/stent and ESWL Short bowel syndrome Sleep apnea complex sleep apnea, BIPAP SOB (shortness of breath) on exertion Trouble swallowing hx egd with dilation / "narrowing" Urinary leakage Wrist injury Scar tissue surrounding remote wrist ORIF several years ago resulting in intermittent inflammation per pt Surgical History H/O shoulder surgery RT arthroscopy 05/28/2021: LMA#4 atraumatic x 1 + PNB. Anesthesia postop progress note: "Pt denies SOB at this time. Block is functioning well. Vital signs stable and appropriate. Oxygenating well considering block placement and her comorbidities. Plan to discharge home with IS." History of appendectomy History of cardiac cath 08/2019 ([facility]): essentially normal coronary arteries angiographically, + luminal irregularities. no stents History of cholecystectomy History of colonoscopy History of cystoscopy 04/20/2020: MAC. Per anesthesia postop progress note: "The patient has a complex medical history. She was given a total of 2mg IV versed and 20mg IV propofol for the procedure. Per Chantel, the LITERACY TEACHER, at the end of the procedure she noted some green bile like secretions in the patient's mouth which she immediately suctioned. Per Chantel, it did not appear that the patient aspirated as she did not cough or drop her oxygen saturation. The patient was transported to PACU where she remained hemodynamically stable with no complaints." History of esophagogastroduodenoscopy (EGD) History of gastrointestinal surgery multiple History of joint replacement Rt thumb History of knee replacement procedure of right knee History of open reduction and internal fixation (ORIF) procedure left wrist + manipulation (01/2018) and I&D (10/2019) 12/11/2017: LMA#4, atraumatic x 1. History of partial gastrectomy History of prior ablation treatment Right LE in January 2020 and left LE 04/18/20 History of sinus surgery History of tonsillectomy and adenoidectomy History of total abdominal hysterectomy and bilateral salpingo-oophorectomy S/P right rotator cuff repair S/P ureteral stent placement Status post laser lithotripsy of ureteral calculus most recent litho nov 2021 04/29/2021: LMA#4 atraumatic x 1. [facility]. 03/01/2021: LMA#4 atraumatic x 1. [facility]. 02/04/2021: LMA#4 atraumatic x 1. [facility]. 07/04/2020: LMA#4 atraumatic x 1. [facility]. No issues per anesthesia postop progress notes. Family History Mother Family history of diabetes mellitus Sister Family history of diabetes mellitus Family history of breast cancer Father Esophageal cancer Other Family history non-contributory No family history of adverse response to anesthesia Social History Smoking Status: Never smoker Second Hand Exposure: No; Hx Alcohol Use: Yes Alcohol type: beer Hx Substance Use: No Preferred Language: German Communication Ability: Effective Visual Impairment: No Limitations Human Factors Specialist Required: No Beliefs That Will Affect Care: None Current Living Situation: Alone Current Living Situation Comment: [facility] Feels Safe at Home: Yes Assistive Devices: BiPap, Glasses and Walker Review of Systems Constitutional: + chills; no fever Eyes: no diplopia Ear, Nose, Mouth, Throat: no ear pain Respiratory: no cough and no dyspnea Cardiovascular: no chest pain Gastrointestinal: + abdominal pain (Radiating from right flank); no nausea and no vomiting Genitourinary: as per Subjective / HPI Musculoskeletal: + back pain (Right flank) Integumentary: no rash Neurologic: no localized weakness Physical Exam Constitutional: WD/WN, vitals as above Eyes: Wears glasses ENMT: Ears: no hearing impairment and no external ear abnormality Mouth: no oropharynx abnormality Neck: trachea midline Respiratory: normal respiratory effort; no respiratory distress and no labored breathing Cardiovascular: Rate/Rhythm: regular rate and regular rhythm Vessels: dorsalis pedis pulses present and radial pulses present Gastrointestinal (Abdomen): Abdomen soft, nonrigid, nondistended, and nontender to palpation. There is no rebound tenderness or guarding Musculoskeletal: Feet are warm and non-mottled. No calf tenderness noted Skin: no rashes Neurologic: moves all extremities Psychiatric: A+Ox3, euthymic affect Genitourinary: + CVA tenderness (Right sided, noted with percussion) Results & Data ([facility]) Vital Signs (Past 12 Hours) Vital Signs Temp Pulse Pulse Resp BP Pulse Ox O2 Del Method 06/02/22 18:28 76 15 95 Room Air 06/02/22 16:32 36.7 C 65 20 125/67 96 Room Air PG Care Time/CCT Total # of Minutes Spent Total Time Spent with Patient: Total time spent is greater than 50% in coordination of care (as documented) at patient's floor/unit and/or counseling patient: Coding Level of Care Code 82092 Inpt Consult Level 5 Diagnoses Bilateral nephrolithiasis N20.0
[2022-06-02] MEDS ORDERED: AZTREONAM 2,000 MG in DEXTROSE 5% 100 ML IV STA (20:42)
--- NOTE | 2022-06-02 21:01 | XRay Report ---
XR chest 1V portable CLINICAL HISTORY: hyponatremia TECHNIQUE: Single frontal radiograph of the chest was obtained. Comparison: Comparison is made to chest radiograph 03/06/2022 FINDINGS: A port catheter is seen. Cardiomegaly is noted. Reticular interstitial opacities are seen. No evidenc e of pleural effusion or pneumothorax. IMPRESSION: No acute chest disease. ACT 112: Negative or not required by law. Electronically signed by: Evan Ventura M.D. 06/02/2022 9:00 PM
[2022-06-02 21:09] LABS: Magnesium 2.1 mg/dl (1.7-2.4)
--- NOTE | 2022-06-02 21:22 | History & Physical Report ---
Date of Service June 02, 2022 Assessment & Plan (1) Complicated UTI (urinary tract infection): Plan: History recurrent urolithiasis No sepsis for now Hyponatremia secondary to illness, home diuretics contributory chronic diastolic heart failure (EF 55 to 60%, TTE 2021), patient on the dry side LARRY on BIPAP, pulmonary hypertension, asthma -pulmonary status currently stable history of gastric bypass hx ankylosing spondylitis Hypokalemia secondary to decreased p.o. intake and home diuretic Rx mood/ anxiety disorder, at baseline GMF Follow urine CS, Azactam (Urine CS from 03/2020 showed quinolone resistant organism) Continue Flomax Urology consult Re: Obstructive uropathy (Patient already seen by provider on-call at the ER. Service recommends n.p.o. status after midnight in anticipation of procedural intervention in a.m.) Careful correction of sodium, hold home diuretic for now Replace electrolytes DVT prophylaxis. Lovenox subcu Full code Text document was generated using [employer] voice recognition software. It may contain grammatical or spelling errors. Kindly contact undersigned for clarification of any documentation item in question. History of Present Illness Chief Complaint: Right pain, dysuria Primary Care Provider: Frederick Reynaga DO History obtained from patient and records. Medical history significant for chronic diastolic heart failure (EF 55 to 60%, TTE 2021), LARRY on BIPAP, pulmonary hypertension, asthma, history of gastric bypass, hyperparathyroidism as per records, ankylosing spondylitis as per records, recurrent calcium urolithiasis, history pancreatic insufficiency/malabsorption as per records, mood/ anxiety disorder, Recent confinement 2 months ago for decompensated heart failure and junctional bradycardia. Patient underwent outpatient ESWL by [facility] [place] 2 weeks ago. This morning, patient experience achy right sided flank pain with nausea, no emesis. Hematuria. No fever, no chills. Episode reminiscent of kidney stone pain. No chest pain, no SOB, no unusual fluid retention. IV ciprofloxacin administered at the ER. 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 Allergies Allergy/AdvReac Type Severity Reaction Status Date / Time bethanechol Allergy Unknown RASH, Verified 06/02/22 20:16 "FEELS FUNNY" Cephalosporins Allergy Unknown RASH, Verified 06/02/22 20:16 DIARRHEA clindamycin Allergy Unknown Unknown Verified 06/02/22 20:16 dipyridamole Allergy Unknown UNKNOWN Verified 06/02/22 20:16 droperidol Allergy Unknown Unknown Verified 06/02/22 20:16 ertapenem Allergy Unknown RASH Verified 06/02/22 20:16 levofloxacin Allergy Unknown RASH,TURNED Verified 06/02/22 20:16 RED promethazine Allergy Unknown UNKNOWN Verified 06/02/22 20:16 Sulfa (Sulfonamide Allergy Unknown Generalized Verified 06/02/22 20:16 Antibiotics) Rash tobramycin Allergy Unknown UNKNOWN Verified 06/02/22 20:16 doxycycline AdvReac Severe severe Verified 05/22/22 12:31 Diarrhea, nausea aspirin AdvReac Unknown BLEEDING Verified 05/22/22 12:31 bupropion AdvReac Unknown NERVOUS Verified 05/22/22 12:31 REACTION cephalexin AdvReac Unknown GI SYMPTOMS Verified 05/22/22 12:31 metolazone AdvReac Unknown ELECTROLYTE Verified 05/22/22 12:31 ISSUES morphine AdvReac Unknown NERVOUS Verified 05/22/22 12:31 REACTION TO IT nitrofurantoin AdvReac Unknown Vomiting Verified 05/22/22 12:31 [From Macrobid] prochlorperazine AdvReac Unknown NERVOUS Verified 05/22/22 12:31 REACTION tedizolid AdvReac Unknown GI SYMPTOMS Verified 05/22/22 12:31 Home Medications Medication Instructions Recorded Confirmed Type colesevelam 625 mg tablet (WelChol) 625 mg PO TID 06/17/18 06/02/22 History lorazepam 0.5 mg tablet (Ativan) 0.5 mg PO HS 06/17/18 06/02/22 History montelukast 10 mg tablet 10 mg PO HS 06/17/18 06/02/22 History (Singulair) ipratropium 0.5 mg-albuterol 3 mg 3 ml inhalation Q4H PRN Shortness 05/05/19 06/02/22 History (2.5 mg base)/3 mL nebulization Of Breath Or Wheezing soln upemfw-[id number]-fnrkbyp 4 cap PO TID 05/05/19 06/02/22 History 24,000-76,000-120,000 unit capsule,delayed rel (Creon) omeprazole magnesium 20 mg 20 mg PO BID 05/17/19 06/02/22 History tablet,delayed release (Prilosec OTC) mecobalamin (vitamin B12) 1,000 1,000 mcg PO QAM 01/21/21 06/02/22 History mcg disintegrating tablet,sublingual risperidone 2 mg tablet 2 mg PO HS 02/27/21 06/02/22 History tamsulosin 0.4 mg capsule 0.4 mg PO HS #30 caps 04/29/21 06/02/22 Rx oxycodone-acetaminophen 5 mg-325 1 tab PO Q6H PRN pain #30 tabs 08/08/21 06/02/22 Rx mg tablet (Percocet) albuterol sulfate 90 mcg/actuation 2 inh inhalation Q6H PRN Shortness 09/24/21 06/02/22 History breath activated powder inhaler Of Breath Or Wheezing ropinirole 0.25 mg tablet 0.25 mg PO HS 09/24/21 06/02/22 History phenazopyridine 200 mg tablet 200 mg PO Q8H PRN pain #10 tabs 09/27/21 06/02/22 Rx (Pyridium) potassium chloride 10 mEq 10 meq PO TID 12/04/21 06/02/22 History capsule,extended release desipramine 50 mg tablet 50 mg PO BID 01/23/22 06/02/22 History escitalopram oxalate 10 mg tablet 15 mg PO HS 01/23/22 06/02/22 History (Lexapro) fluticasone fur. 100 mcg-umeclid 1 inh inhalation QAM 04/21/22 06/02/22 History 62.5 mcg-vilant 25 mcg inhalat.powder (Trelegy Ellipta) fosfomycin tromethamine 3 gram 1 packet PO Q OTHER DAY 1 day #1 ea 05/01/22 06/02/22 Rx oral packet calcitriol 0.25 mcg capsule 0.25 mcg PO BID #60 caps 05/02/22 06/02/22 Rx calcium carbonate 600 mg calcium 600 mg PO TID #60 tabs 05/02/22 06/02/22 Rx (1,500 mg) tablet (Calcium) duloxetine 20 mg capsule,delayed 20 mg PO HS #30 caps 05/09/22 06/02/22 Rx release (Cymbalta) torsemide 10 mg tablet 10 mg PO BID 05/09/22 06/02/22 History pregabalin 150 mg capsule (Lyrica) 150 mg PO TID #90 caps 05/14/22 06/02/22 Rx levothyroxine 88 mcg tablet 88 mcg PO QAM 05/19/22 06/02/22 History vibegron 75 mg tablet (Gemtesa) 75 mg PO DAILY #30 tabs 05/22/22 06/02/22 Rx lorazepam 0.5 mg tablet 0.5 mg PO BID PRN Anxiety 06/02/22 06/02/22 History Past Med/Surg History Medical History Asthma Atherosclerosis of both lower extremities Chronic diastolic (congestive) heart failure Hospitalized March 2022 Follows w/[facility] (Dr. Otoole) Chronic kidney disease stage 3b Chronic sinusitis Chronic urinary tract infection Instructed to take pre op antibiotics prior to upcoming Lithotripsy on 05/22/22. States she will start 05/20/22 in the morning Chronic venous insufficiency COPD (chronic obstructive pulmonary disease) Depression GERD without esophagitis H/O concussion History of anemia History of esophageal dilatation Hyperlipidemia per records Hypothyroidism Incisional hernia Abdominal (from multiple surgeries/feeding tube) Kidney stones Lumbar transverse process fracture Pt reports lower back detioriating - can't lie flat/sleep on a chair MRSA (methicillin resistant staph aureus) culture positive History of Left wrist Had 3 nasal swab and all negative (through [facility] per pt) Obesity Pancreatic insufficiency chronic pancreatitis Peripheral neuropathy Port-A-Cath in place right side due to poor vascular access PUD (peptic ulcer disease) Had feeding tube for 28 years (has been removed for 11 years) Pulmonary hypertension mild per 07/[address] report PVC (premature ventricular contraction) Reactive hypoglycemia Secondary hyperparathyroidism Sepsis 05/2020 @ [facility], urosepsis 2/2 obstructing renal stone, S/P cysto/stent and ESWL Short bowel syndrome Sleep apnea complex sleep apnea, BIPAP SOB (shortness of breath) on exertion Trouble swallowing hx egd with dilation / "narrowing" Urinary leakage Wrist injury Scar tissue surrounding remote wrist ORIF several years ago resulting in intermittent inflammation per pt Surgical History H/O shoulder surgery RT arthroscopy 05/28/2021: LMA#4 atraumatic x 1 + PNB. Anesthesia postop progress note: "Pt denies SOB at this time. Block is functioning well. Vital signs stable and appropriate. Oxygenating well considering block placement and her comorbidities. Plan to discharge home with IS." History of appendectomy History of cardiac cath 08/2019 ([facility]): essentially normal coronary arteries angiographically, + luminal irregularities. no stents History of cholecystectomy History of colonoscopy History of cystoscopy 04/20/2020: MAC. Per anesthesia postop progress note: "The patient has a complex medical history. She was given a total of 2mg IV versed and 20mg IV propofol for the procedure. Per Chantel, the HOME ASSESSMENT NURSE, at the end of the procedure she noted some green bile like secretions in the patient's mouth which she immediately suctioned. Per Chantel, it did not appear that the patient aspirated as she did not cough or drop her oxygen saturation. The patient was transported to PACU where she remained hemodynamically stable with no complaints." History of esophagogastroduodenoscopy (EGD) History of gastrointestinal surgery multiple History of joint replacement Rt thumb History of knee replacement procedure of right knee History of open reduction and internal fixation (ORIF) procedure left wrist + manipulation (01/2018) and I&D (10/2019) 12/11/2017: LMA#4, atraumatic x 1. History of partial gastrectomy History of prior ablation treatment Right LE in January 2020 and left LE 04/18/20 History of sinus surgery History of tonsillectomy and adenoidectomy History of total abdominal hysterectomy and bilateral salpingo-oophorectomy S/P right rotator cuff repair S/P ureteral stent placement Status post laser lithotripsy of ureteral calculus most recent litho nov 2021 04/29/2021: LMA#4 atraumatic x 1. [facility]. 03/01/2021: LMA#4 atraumatic x 1. [facility]. 02/04/2021: LMA#4 atraumatic x 1. [facility]. 07/04/2020: LMA#4 atraumatic x 1. [facility]. No issues per anesthesia postop progress notes. Family History Mother Family history of diabetes mellitus Sister Family history of diabetes mellitus Family history of breast cancer Father Esophageal cancer Other Family history non-contributory No family history of adverse response to anesthesia Social History Smoking Status: Never smoker Second Hand Exposure: No; Hx Alcohol Use: No Hx Substance Use: No Preferred Language: Mexican Communication Ability: Effective Visual Impairment: No Limitations Sales Recruiter Required: No Beliefs That Will Affect Care: None Current Living Situation: Alone Current Living Situation Comment: [facility] Other Information That Helps Us Care for You: No Feels Safe at Home: Yes Safety Concerns: Feels Safe At This Time Assistive Devices: Denture - Upper, Denture - Lower, Glasses and Walker Review of Systems Review of Systems: As per HPI, all other systems reviewed and negative Physical Exam Physical Exam: GENERAL: Comfortable, slightly anxious, obese, no respiratory distress SKIN: Normal color, warm HEENT: Bespectacled, pink palpebral conjunctivae, no ptosis, dry buccal mucosa NECK : Supple, short, no tenderness CHEST : Decreased breath sounds, no tenderness HEART : RRR, systolic murmur ABDOMEN: Some distention, minimal right-sided abdominal tenderness nontender EXTREMITIES : Bilateral LE swelling, no LE tenderness NEUROLOGIC : Coherent, no facial asymmetry, no other gross focality Results & Data Results & Data ([facility]) Vital Signs (Past 12 Hours) Vital Signs Temp Pulse Pulse Resp BP Pulse Ox O2 Del Method 06/02/22 20:37 75 16 93 Room Air 06/02/22 18:28 76 15 95 Room Air 06/02/22 16:32 36.7 C 65 20 125/67 96 Room Air Laboratory Results Laboratory Results WBC 10.68 K/ul (4.8-10.8) 06/02/22 16:48 RBC 4.09 M/uL (3.93-5.22) 06/02/22 16:48 Hgb 12.1 g/dl (12.0-16.0) 06/02/22 16:48 Hct 35.6 % (34.1-44.9) 06/02/22 16:48 MCV 87.0 fL (80.0-100.0) 06/02/22 16:48 MCH 29.6 pg (25.0-34.0) 06/02/22 16:48 MCHC 34.0 g/dL (32.0-36.0) 06/02/22 16:48 RDW Std Deviation 40.6 fL (36.4-46.3) 06/02/22 16:48 RDW Coeff of David 12.9 % (11.5-14.5) 06/02/22 16:48 Plt Count 185 K/uL (130-400) 06/02/22 16:48 MPV 10.6 fL (9.4-12.3) 06/02/22 16:48 Immature Gran % (Auto) 0.3 % 06/02/22 16:48 Neut % (Auto) 79.2 % 06/02/22 16:48 Lymph % (Auto) 10.2 % 06/02/22 16:48 [place] % (Auto) 9.7 % 06/02/22 16:48 Eos % (Auto) 0.3 % 06/02/22 16:48 Baso % (Auto) 0.3 % 06/02/22 16:48 Neut # (Auto) 8.46 K/uL (1.4-6.5) H 06/02/22 16:48 Lymph # (Auto) 1.09 K/uL (1.2-3.4) L 06/02/22 16:48 [place] # (Auto) 1.04 K/uL (0.24-0.82) H 06/02/22 16:48 Eos # (Auto) 0.03 K/uL (0-0.50) 06/02/22 16:48 Baso # (Auto) 0.03 K/uL (0-0.2) 06/02/22 16:48 Immature Gran # (Auto) 0.03 K/uL (0.00-0.02) H 06/02/22 16:48 PT 11.3 Seconds (9.0-12.0) 06/02/22 17:14 INR 1.1 (0.9-1.1) 06/02/22 17:14 Sodium 130 mmol/L (136-145) L 06/02/22 16:48 Potassium 2.9 mmol/L (3.5-5.1) L 06/02/22 16:48 Chloride 91 mmol/L (98-107) L 06/02/22 16:48 Carbon Dioxide 30 mmol/L (21-32) 06/02/22 16:48 Anion Gap 9 (3-11) 06/02/22 16:48 BUN 42 mg/dl (6-23) H 06/02/22 16:48 Creatinine 1.00 mg/dl (0.6-1.2) 06/02/22 16:48 Est Cr Clr Drug Dosing 55.2 ml/min 06/02/22 16:48 Est GFR ( Amer) 66.6 ml/min 06/02/22 16:48 Est GFR (Non-Af Amer) 57.4 ml/min 06/02/22 16:48 BUN/Creatinine Ratio 42.0 (10-20) H 06/02/22 16:48 Glucose 102 mg/dl (70-99(Fasting)) H 06/02/22 16:48 Calcium 8.7 mg/dl (8.5-10.1) 06/02/22 16:48 Magnesium 2.1 mg/dl (1.7-2.4) 06/02/22 16:48 Total Bilirubin 0.5 mg/dl (0.2-1.0) 06/02/22 16:48 AST 17 U/L (13-39) 06/02/22 16:48 ALT 16 U/L (7-52) 06/02/22 16:48 Alkaline Phosphatase 109 U/L (34-104) H 06/02/22 16:48 Total Protein 6.5 gm/dl (6.0-8.3) 06/02/22 16:48 Albumin 3.8 gm/dl (3.4-5.0) 06/02/22 16:48 Globulin 2.7 gm/dl (2.5-4.0) 06/02/22 16:48 Albumin/Globulin Ratio 1.4 (0.9-2) 06/02/22 16:48 Procalcitonin 0.12 ng/ml (0-0.5) 06/02/22 19:13 Urine Color Yellow 06/02/22 Unknown Urine Appearance Clear (Clear) 06/02/22 Unknown Urine pH 7.0 (4.5-7.5) 06/02/22 Unknown Ur Specific [place] 1.005 (1.000-1.030) 06/02/22 Unknown Urine Protein 1+ (Negative) H 06/02/22 Unknown Urine Glucose (UA) Negative (Negative) 06/02/22 Unknown Urine Ketones Negative (Negative) 06/02/22 Unknown Urine Blood 2+ (Negative) H 06/02/22 Unknown Urine Nitrite Negative (Negative) 06/02/22 Unknown Urine Bilirubin Negative (Negative) 06/02/22 Unknown Urine Urobilinogen Negative (Negative) 06/02/22 Unknown Ur Leukocyte Esterase 3+ (Negative) H 06/02/22 Unknown Urine WBC (Auto) >30 /hpf (0-5) H 06/02/22 Unknown Urine RBC (Auto) 0-4 /hpf (0-4) 06/02/22 Unknown U Hyaline Cast (Auto) 1-5 /lpf (0-5) 06/02/22 Unknown U Epithel Cells (Auto) 0-5 /lpf (0-5) 06/02/22 Unknown Urine Bacteria (Auto) 4+ (Negative) H 06/02/22 Unknown SARS-CoV-2, RNA, NAAT NEGATIVE (NEGATIVE) 06/02/22 Unknown Impressions Abdomen/Pelvis CT 06/02/22 17:13 CT abd pelvis wo con CLINICAL HISTORY: right flank pain, hx stones TECHNIQUE: Helical axial images of the abdomen and pelvis were obtained. Automated dose lowering techniques and/or adjustment according to patient size were utilized for this exam. This exam was performed without intravenous contrast. CT DOSE: 970.90 mGy.cm COMPARISON: Comparison is made to CT abdomen pelvis 04/23/2022 FINDINGS: Lower chest: Bibasilar atelectasis versus scarring is seen. Liver: The liver measures 15 cm on craniocaudal dimension. There is suggestion of nodularity of the surface. Gallbladder and biliary tree: Patient is status post cholecystectomy. Physiologic prominence of the biliary ducts is noted. Pancreas: Fatty replacement of the pancreas is seen. Spleen: Unremarkable. Adrenals: Unremarkable. Kidneys and ureters: Numerous nonobstructive stones are seen bilaterally. In addition, there is right hydronephrosis and hydroureter. There is a stone in the right distal ureter measuring approximately 2 mm. The right kidney is atrophic. Bladder: Bladder is underdistended but mildly thickened. Reproductive organs: Patient is status post hysterectomy. Bowel: Patient is status post bowel resection. The appendix is surgically absent. There is postsurgical changes of gastric bypass surgery with a hiatal hernia. Lymph nodes Retroperitoneal: Unremarkable. Pelvic: Unremarkable. Mesenteric: Unremarkable. Peritoneum: Normal. Vessels: Unremarkable. Abdominal wall: There is diastases of the abdominal wall musculature with bulging of multiple bowel loops into the subcutaneous tissues. Bones: Degenerative changes in the visualized spine. IMPRESSION: 1. There is a 2 mm obstructive stone in the right distal ureter with resulting hydronephrosis/hydroureter. Additional nonobstructive stones are seen bilaterally. 2. Bladder wall thickening may represent chronic outlet obstruction, however cystitis cannot be excluded. Correlation with urinalysis is recommended. 3. Additional findings as above. ACT 112: Negative or not required by law. Electronically signed by: Evan Ventura M.D. 06/02/2022 6:37 PM Chest X-Ray 06/02/22 20:15 XR chest 1V portable CLINICAL HISTORY: hyponatremia TECHNIQUE: Single frontal radiograph of the chest was obtained. Comparison: Comparison is made to chest radiograph 03/06/2022 FINDINGS: A port catheter is seen. Cardiomegaly is noted. Reticular interstitial opacities are seen. No evidence of pleural effusion or pneumothorax. IMPRESSION: No acute chest disease. ACT 112: Negative or not required by law. Electronically signed by: Evan Ventura M.D. 06/02/2022 9:00 PM
[2022-06-02] MEDS ORDERED: HYDROmorphone INJ 0.5 MG/0.5 ML SYR IV PRN (21:29)
[2022-06-02] MEDS ORDERED: PROMETHAZINE HCL 12.5 MG in SODIUM CHLORIDE 0.9% 50 ML IV PRN (21:29)
[2022-06-02] MEDS ORDERED: ACETAMINOPHEN 325 MG TAB PO PRN (22:46)
[2022-06-02] MEDS ORDERED: LORazepam 0.5 MG TAB PO PRN (22:46)
[2022-06-02] MEDS: PHENAZOPYRIDINE HCL 200 MG TAB PO PRN (23:40)
[2022-06-02] MEDS: rOPINIRole HCL 0.25 MG TABLET PO SCH (23:40)
[2022-06-02] MEDS: risperiDONE 2 MG TABLET PO SCH (23:40)
[2022-06-02] MEDS: PREGABALIN 150 MG CAP PO SCH (23:41)
[2022-06-03] MEDS ORDERED: SODIUM CHLORIDE 0.9% 1000ML 1,000 ML IV SCH (02:15)
[2022-06-03] MEDS: LEVOTHYROXINE SODIUM 88 MCG TABLET PO SCH (05:59)
[2022-06-03] MEDS: AZTREONAM 2,000 MG in DEXTROSE 5% 100 ML IV SCH ×3 (06:00→22:21)
[2022-06-03] MEDS: oxyCODONE HCL IR 5 MG TAB (IMMEDIATE RELEASE) PO PRN ×2 (06:14→11:13)
[2022-06-03 06:59] LABS: Basophils # (auto) 0.02 K/uL (0-0.2); Basophils % (auto) 0.2 %; Eosinophils # (auto) 0.01 K/uL (0-0.50); Eosinophils % (auto) 0.1 %; Hematocrit (blood only) 35.8 % (34.1-44.9); Hemoglobin 11.9 g/dl (12.0-16.0); Immature Granulocytes # (auto) 0.03 K/uL (0.00-0.02); Immature Granulocytes % (auto) 0.4 %; Lymphocytes # (auto) 0.88 K/uL (1.2-3.4); Lymphocytes % (auto) 10.9 %; Mean Corpuscular Hemoglobin 29.5 pg (25.0-34.0); Mean Corpuscular Hgb Conc 33.2 g/dL (32.0-36.0); Mean Corpuscular Volume 88.6 fL (80.0-100.0); Mean Platelet Volume 9.8 fL (9.4-12.3); Monocytes # (auto) 0.83 K/uL (0.24-0.82); Monocytes % (auto) 10.3 %; Neutrophils # (auto) 6.28 K/uL (1.4-6.5); Neutrophils % (auto) 78.1 %; Platelet Count 189 K/uL (130-400); RDW Coefficient of Variation 13.1 % (11.5-14.5); RDW Standard Deviation 42.3 fL (36.4-46.3); Red Blood Count 4.04 M/uL (3.93-5.22); White Blood Count 8.05 K/ul (4.8-10.8)
[2022-06-03 07:32] LABS: BUN Creatinine Ratio 33.3 (10-20); Calcium 8.5 mg/dl (8.5-10.1); Creatinine Clr Calc Pharmacy 61.4 ml/min; Est GFR (African American) 75.6 ml/min; Est GFR (Non-African American) 65.2 ml/min; Potassium 4.1 mmol/L (3.5-5.1)
[2022-06-03] MEDS: PANCREAZE (LIPASE 10,500U) CAP PO SCH ×3 (08:21→16:44)
[2022-06-03] MEDS: FLUTICASONE FUROATE 100MCG 14 PUFFS/INHALER INH SCH (08:21)
[2022-06-03] MEDS: UMECLIDINIUM/VILANTEROL 62.5/25MCG 7 PUFFS/INHALER INH SCH (08:21)
[2022-06-03] MEDS: CYANOCOBALAMIN (B-12) 500 MCG TABLET PO SCH (08:22)
[2022-06-03] MEDS: PANTOprazole 40 MG TAB PO SCH ×2 (08:22→20:24)
[2022-06-03] MEDS: DESIPRAMINE HCL 50 MG TAB PO SCH ×2 (08:22→20:24)
[2022-06-03] MEDS: PHENAZOPYRIDINE HCL 200 MG TAB PO PRN (08:22)
[2022-06-03] MEDS: PREGABALIN 150 MG CAP PO SCH ×3 (08:22→20:22)
[2022-06-03] MEDS: CALCIUM 600MG + VIT D 400 IU TAB PO SCH ×3 (08:22→20:23)
[2022-06-03] MEDS: ENOXAPARIN INJ 40 MG/0.4 ML SYR SQ SCH (08:22)
[2022-06-03] MEDS: CALCITRIOL 0.25 MCG CAPSULE PO SCH ×2 (08:22→20:24)
[2022-06-03] MEDS ORDERED: NON-FORMULARY MEDICATION (Fluticasone-Umeclidin-Vilanter [Trelegy Ellipta] 100-62.5-25 mcg INH SCH (09:00)
--- NOTE | 2022-06-03 09:00 | Urology Progress Note ---
Date of Service June 03, 2022 Assessment & Plan (1) Bilateral nephrolithiasis: Plan 1. Right mid/distal ureteral calculus2 mm This stone has a high probability of spontaneous passage of given adequate time, hydration, pain control She is interested in at least trialing conservative management overnightwe can was reassess this in the morning I will allow her to have a diet now and make her n.p.o. after midnight in the event that she does not progress well or has any other issues 2. Cystitis?/UTI? Cultures pending She shows no systemic infectious symptoms At this stage I do not believe that this warrants an immediate intervention from the stone, however, if she starts to exhibit systemic issuesfevers, hemodynamic instability, elevated white count, we may have to intervene for the infection - cont abx for now Admission and Anticipated Discharge Date Admission Date: June 02, 2022 Subjective 71-year-old female well-known to our service who follows with Dr. Marvin as an outpatient for longstanding kidney stone problems She presented to the emergency room yesterday after sudden onset of right flank pain She continues to have some mild discomfort today but intensity is tolerable No current nausea or vomiting Afebrile and hemodynamically stable Urine culture does show gram-negative bacillispeciation and sensitivities pending She has not exhibited any signs of sepsis or bacteremia CT reviewed and discussed as she has stones in both kidneys but also has a 2 mm fragment just below the vessels on the right sideseveral centimeters above the bladder with mild hydronephrosis Physical Exam Constitutional: well developed and well nourished Respiratory: no respiratory distress Cardiovascular: Extremities: no pedal edema Gastrointestinal (Abdomen): Inspection/Auscultation: abdomen normal to inspection Results & Data ([facility]) Vital Signs (Past 12 Hours) Vital Signs Temp Pulse Pulse Resp BP Pulse Ox O2 Del Method 06/03/22 08:31 36.5 C 73 18 104/68 95 Room Air 06/02/22 22:45 Nasal Cannula 06/02/22 22:45 36.4 C L 67 18 146/82 H 93 Room Air 06/02/22 22:26 74 18 95 Room Air O2 Flow Rate 06/03/22 08:31 06/02/22 22:45 3 06/02/22 22:45 06/02/22 22:26 PG Care Time/CCT Total # of Minutes Spent Total Time Spent with Patient: Total time spent is greater than 50% in coordination of care (as documented) at patient's floor/unit and/or counseling patient: Coding Level of Care Code 81875 Subseq Hosp Care Lv 3 Diagnoses Bilateral nephrolithiasis N20.0
--- NOTE | 2022-06-03 16:34 | Hospitalist Progress Note ---
Date of Service June 03, 2022 Assessment & Plan (1) Complicated UTI (urinary tract infection): Plan: 1) Ureteric Colic, hx of recurrent stones. 2) UTI 2/2 G -ve bacilli Plan: - Continue on current antibiotics. will follow up on C/S. - NPO from midnight. Hyponatremia secondary to illness, home diuretics contributory - Improved to 139. home diuretics on hold currently. chronic diastolic heart failure (EF 55 to 60%, TTE 2021), patient on the dry side LARRY on BIPAP, pulmonary hypertension, asthma -pulmonary status currently stable history of gastric bypass hx ankylosing spondylitis Hypokalemia secondary to decreased p.o. intake and home diuretic Rx mood/ anxiety disorder, at baseline Replace electrolytes [facility] Admission and Anticipated Discharge Date Admission Date: June 02, 2022 Subjective Patient is seen and examined at bedside. She is comfortable; he states that the pain is well controlled. Review of Systems Review of Systems: All systems reviewed & are unremarkable except as noted in Subjective Physical Exam Physical Exam: GENERAL: Comfortable, slightly anxious, obese, no respiratory distress SKIN: Normal color, warm HEENT: Bespectacled, pink palpebral conjunctivae, no ptosis, dry buccal mucosa NECK : Supple, short, no tenderness CHEST : Decreased breath sounds, no tenderness HEART : RRR, systolic murmur ABDOMEN: Some distention, minimal right-sided abdominal tenderness nontender EXTREMITIES : Bilateral LE swelling, no LE tenderness NEUROLOGIC : Coherent, no facial asymmetry, no other gross focality Results & Data Results & Data ([facility]) Vital Signs (Past 12 Hours) Vital Signs Temp Pulse Resp BP Pulse Ox O2 Del Method O2 Flow Rate 06/03/22 15:41 36.8 C 72 18 107/67 92 Room Air 06/03/22 07:45 Nasal Cannula 3 06/03/22 08:31 36.5 C 73 18 104/68 95 Room Air Diagnostic Findings Laboratory Results WBC 8.05 K/ul (4.8-10.8) 06/03/22 06:23 RBC 4.04 M/uL (3.93-5.22) 06/03/22 06:23 Hgb 11.9 g/dl (12.0-16.0) L 06/03/22 06:23 Hct 35.8 % (34.1-44.9) 06/03/22 06:23 MCV 88.6 fL (80.0-100.0) 06/03/22 06:23 MCH 29.5 pg (25.0-34.0) 06/03/22 06:23 MCHC 33.2 g/dL (32.0-36.0) 06/03/22 06:23 RDW Std Deviation 42.3 fL (36.4-46.3) 06/03/22 06: RDW Coeff of David 13.1 % (11.5-14.5) 06/03/22 06:23 Plt Count 189 K/uL (130-400) 06/03/22 06:23 MPV 9.8 fL (9.4-12.3) 06/03/22 06:23 Immature Gran % (Auto) 0.4 % 06/03/22 06: Neut % (Auto) 78.1 % 06/03/22 06:23 Lymph % (Auto) 10.9 % 06/03/22 06:23 [place] % (Auto) 10.3 % 06/03/22 06:23 Eos % (Auto) 0.1 % 06/03/22 06:23 Baso % (Auto) 0.2 % 06/03/22 06:23 Neut # (Auto) 6.28 K/uL (1.4-6.5) 06/03/22 06:23 Lymph # (Auto) 0.88 K/uL (1.2-3.4) L 06/03/22 06:23 [place] # (Auto) 0.83 K/uL (0.24-0.82) H 06/03/22 06:23 Eos # (Auto) 0.01 K/uL (0-0.50) 06/03/22 06:23 Baso # (Auto) 0.02 K/uL (0-0.2) 06/03/22 06:23 Immature Gran # (Auto) 0.03 K/uL (0.00-0.02) H 06/03/22 06:23 PT 11.3 Seconds (9.0-12.0) 06/02/22 17:14 INR 1.1 (0.9-1.1) 06/02/22 17:14 Sodium 139 mmol/L (136-145) 06/03/22 06:23 Potassium 4.1 mmol/L (3.5-5.1) D 06/03/22 06:23 Chloride 101 mmol/L (98-107) 06/03/22 06:23 Carbon Dioxide 30 mmol/L (21-32) 06/03/22 06:23 Anion Gap 8 (3-11) 06/03/22 06:23 BUN 30 mg/dl (6-23) H 06/03/22 06:23 Creatinine 0.90 mg/dl (0.6-1.2) 06/03/22 06:23 Est Cr Clr Drug Dosing 61.4 ml/min 06/03/22 06:23 Est GFR ( Amer) 75.6 ml/min 06/03/22 06:23 Est GFR (Non-Af Amer) 65.2 ml/min 06/03/22 06:23 BUN/Creatinine Ratio 33.3 (10-20) H 06/03/22 06:23 Glucose 118 mg/dl (70-99(Fasting)) H 06/03/22 06:23 Calcium 8.5 mg/dl (8.5-10.1) 06/03/22 06:23 Magnesium 2.1 mg/dl (1.7-2.4) 06/02/22 16:48 Total Bilirubin 0.5 mg/dl (0.2-1.0) 06/02/22 16:48 AST 17 U/L (13-39) 06/02/22 16:48 ALT 16 U/L (7-52) 06/02/22 16:48 Alkaline Phosphatase 109 U/L (34-104) H 06/02/22 16:48 Total Protein 6.5 gm/dl (6.0-8.3) 06/02/22 16:48 Albumin 3.8 gm/dl (3.4-5.0) 06/02/22 16:48 Globulin 2.7 gm/dl (2.5-4.0) 06/02/22 16:48 Albumin/Globulin Ratio 1.4 (0.9-2) 06/02/22 16:48 Procalcitonin 0.12 ng/ml (0-0.5) 06/02/22 19:13 TSH 1.045 uIu/ml (0.300-4.500) 06/02/22 19:13 Urine Color Yellow 06/02/22 Unknown Urine Appearance Clear (Clear) 06/02/22 Unknown Urine pH 7.0 (4.5-7.5) 06/02/22 Unknown Ur Specific [place] 1.005 (1.000-1.030) 06/02/22 Unknown Urine Protein 1+ (Negative) H 06/02/22 Unknown Urine Glucose (UA) Negative (Negative) 06/02/22 Unknown Urine Ketones Negative (Negative) 06/02/22 Unknown Urine Blood 2+ (Negative) H 06/02/22 Unknown Urine Nitrite Negative (Negative) 06/02/22 Unknown Urine Bilirubin Negative (Negative) 06/02/22 Unknown Urine Urobilinogen Negative (Negative) 06/02/22 Unknown Ur Leukocyte Esterase 3+ (Negative) H 06/02/22 Unknown Urine WBC (Auto) >30 /hpf (0-5) H 06/02/22 Unknown Urine RBC (Auto) 0-4 /hpf (0-4) 06/02/22 Unknown U Hyaline Cast (Auto) 1-5 /lpf (0-5) 06/02/22 Unknown U Epithel Cells (Auto) 0-5 /lpf (0-5) 06/02/22 Unknown Urine Bacteria (Auto) 4+ (Negative) H 06/02/22 Unknown SARS-CoV-2, RNA, NAAT NEGATIVE (NEGATIVE) 06/02/22 Unknown Impressions Abdomen/Pelvis CT 06/02/22 17:13 CT abd pelvis wo con CLINICAL HISTORY: right flank pain, hx stones TECHNIQUE: Helical axial images of the abdomen and pelvis were obtained. Automated dose lowering techniques and/or adjustment according to patient size were utilized for this exam. This exam was performed without intravenous contrast. CT DOSE: 970.90 mGy.cm COMPARISON: Comparison is made to CT abdomen pelvis 04/23/2022 FINDINGS: Lower chest: Bibasilar atelectasis versus scarring is seen. Liver: The liver measures 15 cm on craniocaudal dimension. There is suggestion of nodularity of the surface. Gallbladder and biliary tree: Patient is status post cholecystectomy. Physiologic prominence of the biliary ducts is noted. Pancreas: Fatty replacement of the pancreas is seen. Spleen: Unremarkable. Adrenals: Unremarkable. Kidneys and ureters: Numerous nonobstructive stones are seen bilaterally. In addition, there is right hydronephrosis and hydroureter. There is a stone in the right distal ureter measuring approximately 2 mm. The right kidney is atrophic. Bladder: Bladder is underdistended but mildly thickened. Reproductive organs: Patient is status post hysterectomy. Bowel: Patient is status post bowel resection. The appendix is surgically abs ent. There is postsurgical changes of gastric bypass surgery with a hiatal hernia. Lymph nodes Retroperitoneal: Unremarkable. Pelvic: Unremarkable. Mesenteric: Unremarkable. Peritoneum: Normal. Vessels: Unremarkable. Abdominal wall: There is diastases of the abdominal wall musculature with bulging of multiple bowel loops into the subcutaneous tissues. Bones: Degenerative changes in the visualized spine. IMPRESSION: 1. There is a 2 mm obstructive stone in the right distal ureter with resulting hydronephrosis/hydroureter. Additional nonobstructive stones are seen bilaterally. 2. Bladder wall thickening may represent chronic outlet obstruction, however cystitis cannot be excluded. Correlation with urinalysis is recommended. 3. Additional findings as above. ACT 112: Negative or not required by law. Electronically signed by: Evan Ventura M.D. 06/02/2022 6:37 PM Chest X-Ray 06/02/22 20:15 XR chest 1V portable CLINICAL HISTORY: hyponatremia TECHNIQUE: Single frontal radiograph of the chest was obtained. Comparison: Comparison is made to chest radiograph 03/06/2022 FINDINGS: A port catheter is seen. Cardiomegaly is noted. Reticular interstitial opacities are seen. No evidence of pleural effusion or pneumothorax. IMPRESSION: No acute chest disease. ACT 112: Negative or not required by law. Electronically signed by: Evan Ventura M.D. 06/02/2022 9:00 PM
[2022-06-03] MEDS: HEPARIN 100 UNIT/ML 5ML FLUSH FLUSH PRN (18:37)
[2022-06-03] MEDS: rOPINIRole HCL 0.25 MG TABLET PO SCH (20:22)
[2022-06-03] MEDS: LORazepam 0.5 MG TAB PO SCH (20:22)
[2022-06-03] MEDS: TAMSULOSIN HCL 0.4 MG CAP PO SCH (20:23)
[2022-06-03] MEDS: ESCITALOPRAM OXALATE 10 MG TAB PO SCH (20:23)
[2022-06-03] MEDS: risperiDONE 2 MG TABLET PO SCH (20:24)
[2022-06-03] MEDS: DULoxetine HCL 20 MG CAP PO SCH (20:24)
[2022-06-03] MEDS: MONTELUKAST SODIUM 10 MG TABLET PO SCH (20:24)
[2022-06-04] MEDS: AZTREONAM 2,000 MG in DEXTROSE 5% 100 ML IV SCH (05:39)
[2022-06-04] MEDS: LEVOTHYROXINE SODIUM 88 MCG TABLET PO SCH (05:39)
[2022-06-04] MEDS: oxyCODONE HCL IR 5 MG TAB (IMMEDIATE RELEASE) PO PRN (05:43)
--- NOTE | 2022-06-04 08:27 | Urology Progress Note ---
Date of Service June 04, 2022 Assessment & Plan (1) Bilateral nephrolithiasis: Plan - Follow-up of right mid/distal ureteral calculus2 mm; UTI. - No stone passage overnight. - Remains afebrile, normal creatinine and no leukocytosis on 06/03, repeat labs ordered. - Urine culture 06/02 showing prelim E. coli, pansensitive. Currently on IV Aztreonam. - Cont abx, narrow per sensitivities. - Cam intact, patent and draining cloudy/purulent urine in tubing this AM. - She continues to have right flank/abd pain, relieved with PO pain medication. - Discussed options for stone management including trial of passage vs surgical intervention. - Discussed that stone has a high probability of spontaneous passage if given adequate time, hydration, pain control. - Will keep NPO at present and reassess later this AM. Patient reassessed with Dr. Villafana, urologist baby registry sales consultant. Lab work from today reviewed - Creatinine and WBC within normal limits. Cam continues to drain some cloudy/purulent appearing urine. Again reviewed and discussed options for management of stone. After discussion, patient elects to proceed with right stent placement today. Keep NPO for procedure. OR notified. Plan for cystoscopy, retrograde pyelogram, and right ureteral stent placement today with Dr. Villafana. Admission and Anticipated Discharge Date Admission Date: June 02, 2022 Supervising Physician Co-Signing Physician Notes I have discussed Ms. Braswell's case with KHOI Rosenberg and agree with the above documentation. She remains hemodynamically stable and lab work is reassuring, however urine appears grossly purulent. We discussed options of stent placement to ensure maximal drainage of her kidney, especially since she is having ongoing right-sided flank pain. The alternative would be to monitor closely. If she were to go home and start having any fevers or chills, she would need to come back and have this procedure performed. After consideration of the risks and benefits, she expressed that she would prefer to have stent placement. We will plan for ureteral stent placement this afternoon. Subjective Patient seen and examined at bedside this AM. She is awake and resting in bed. No acute issues overnight. Denies stone passage. She continues to have right flank/abdominal pain, relieved with PO oxycodone. Cam intact and draining, urine in tubing appears cloudy/purulent. Endorses dysuria, no hematuria. No nausea or vomiting. No fever or chills. Review of Systems Constitutional: as per Subjective / HPI Gastrointestinal: as per Subjective / HPI Genitourinary: as per Subjective / HPI Physical Exam Constitutional: well developed, well nourished and + obese; no acute distress and not ill appearing Respiratory: normal respiratory effort and able to speak in complete sentences; no respiratory distress and no labored breathing Cardiovascular: Extremities: no pedal edema Gastrointestinal (Abdomen): Inspection/Auscultation: abdomen normal to inspection; abdomen not distended Percussion/Palpation: abdomen soft; abdomen nontender and no guarding Musculoskeletal: Head/Neck/Chest: normocephalic and head atraumatic Neurologic: moves all extremities and awake Psychiatric: Orientation: alert and oriented x 3 Genitourinary: Cam intact and draining, urine in tubing appears cloudy/purulent Results & Data ([facility]) Vital Signs (Past 12 Hours) Vital Signs Temp Pulse Resp BP Pulse Ox O2 Del Method O2 Flow Rate 06/04/22 06:59 36.8 C 72 18 110/69 96 Nasal Cannula 2 06/03/22 22:24 93 Nasal Cannula 06/03/22 22:23 37.2 C 81 16 126/73 87 L Room Air PG Care Time/CCT Total # of Minutes Spent Total Time Spent with Patient: Total time spent is greater than 50% in coordination of care (as documented) at patient's floor/unit and/or counseling patient: Coding Level of Care Code 22896 Subseq Hosp Care Lvl 2 Diagnoses Bilateral nephrolithiasis N20.0
[2022-06-04 09:05] LABS: Hematocrit (blood only) 35.7 % (34.1-44.9); Hemoglobin 11.3 g/dl (12.0-16.0); Mean Corpuscular Hemoglobin 29.4 pg (25.0-34.0); Mean Corpuscular Hgb Conc 31.7 g/dL (32.0-36.0); Mean Corpuscular Volume 92.7 fL (80.0-100.0); Platelet Count 192 K/uL (130-400); RDW Coefficient of Variation 13.6 % (11.5-14.5); RDW Standard Deviation 45.9 fL (36.4-46.3); Red Blood Count 3.85 M/uL (3.93-5.22); White Blood Count 7.31 K/ul (4.8-10.8)
[2022-06-04] MEDS: UMECLIDINIUM/VILANTEROL 62.5/25MCG 7 PUFFS/INHALER INH SCH (09:31)
[2022-06-04 09:32] LABS: BUN Creatinine Ratio 28.4 (10-20); Calcium 8.4 mg/dl (8.5-10.1); Creatinine Clr Calc Pharmacy 54.1 ml/min; Est GFR (Non-African American) 56.1 ml/min; Potassium 3.9 mmol/L (3.5-5.1)
[2022-06-04] MEDS: PREGABALIN 150 MG CAP PO SCH ×3 (09:32→20:23)
[2022-06-04] MEDS: FLUTICASONE FUROATE 100MCG 14 PUFFS/INHALER INH SCH (09:32)
[2022-06-04] MEDS: AMOXICILLIN/CLAVULANATE 875 MG TAB PO SCH ×2 (09:32→16:53)
[2022-06-04] MEDS: DESIPRAMINE HCL 50 MG TAB PO SCH ×2 (09:33→20:25)
[2022-06-04] MEDS: CALCIUM 600MG + VIT D 400 IU TAB PO SCH ×3 (09:33→20:24)
[2022-06-04] MEDS: CYANOCOBALAMIN (B-12) 500 MCG TABLET PO SCH (09:33)
[2022-06-04] MEDS: PANTOprazole 40 MG TAB PO SCH ×2 (09:33→20:26)
[2022-06-04] MEDS: PANCREAZE (LIPASE 10,500U) CAP PO SCH ×3 (09:34→16:54)
[2022-06-04] MEDS: CALCITRIOL 0.25 MCG CAPSULE PO SCH ×2 (09:34→20:25)
[2022-06-04] MEDS: ENOXAPARIN INJ 40 MG/0.4 ML SYR SQ SCH (09:37)
--- NOTE | 2022-06-04 11:24 | Anesthesiology Consultation ---
Date of Service June 04, 2022 Assessment & Plan Chart Review Chart Review: Acceptable Risk for Surgery and Patient NOT seen in Pre Admission Testing Consults Requested none ASA ASA4 Proposed Anesthesia Anesthesia Type: General History Surgery Operation Date: 06/04/22 08:05 Proposed Procedures p Cystoscopy, Retrograde Pyelogram, Right Stent Placement - Christopher Villafana MD Height/Weight Height: 5 ft 1 in Weight: 93 kg Allergies Allergy/AdvReac Type Severity Reaction Status Date / Time bethanechol Allergy Unknown RASH, Verified 06/02/22 20:16 "FEELS FUNNY" Cephalosporins Allergy Unknown RASH, Verified 06/02/22 20:16 DIARRHEA clindamycin Allergy Unknown Unknown Verified 06/02/22 20:16 dipyridamole Allergy Unknown UNKNOWN Verified 06/02/22 20:16 droperidol Allergy Unknown Unknown Verified 06/02/22 20:16 ertapenem Allergy Unknown RASH Verified 06/02/22 20:16 levofloxacin Allergy Unknown RASH,TURNED Verified 06/02/22 20:16 RED promethazine Allergy Unknown UNKNOWN Verified 06/02/22 20:16 Sulfa (Sulfonamide Allergy Unknown Generalized Verified 06/02/22 20:16 Antibiotics) Rash tobramycin Allergy Unknown UNKNOWN Verified 06/02/22 20:16 doxycycline AdvReac Severe severe Verified 05/22/22 12:31 Diarrhea, nausea aspirin AdvReac Unknown BLEEDING Verified 05/22/22 12:31 bupropion AdvReac Unknown NERVOUS Verified 05/22/22 12:31 REACTION cephalexin AdvReac Unknown GI SYMPTOMS Verified 05/22/22 12:31 metolazone AdvReac Unknown ELECTROLYTE Verified 05/22/22 12:31 ISSUES morphine AdvReac Unknown NERVOUS Verified 05/22/22 12:31 REACTION TO IT nitrofurantoin AdvReac Unknown Vomiting Verified 05/22/22 12:31 [From Macrobid] prochlorperazine AdvReac Unknown NERVOUS Verified 05/22/22 12:31 REACTION tedizolid AdvReac Unknown GI SYMPTOMS Verified 05/22/22 12:31 Medications Home Medications Medication Instructions Recorded Confirmed Last Taken colesevelam 625 mg tablet (WelChol) 625 mg PO TID 06/17/18 06/02/22 06/02/22 12:00 lorazepam 0.5 mg tablet (Ativan) 0.5 mg PO HS 0906/02/22 05/21/22 18:00 montelukast 10 mg tablet 10 mg PO HS 06/17/18 06/02/22 05/21/22 18:00 (Singulair) ipratropium 0.5 mg-albuterol 3 mg 3 ml inhalation Q4H PRN Shortness 05/05/19 06/02/22 05/22/22 06:00 (2.5 mg base)/3 mL nebulization Of Breath Or Wheezing soln szldad-ipsordhc-pxnaltm 4 cap PO TID 05/05/19 06/02/22 06/02/22 12:00 24,000-76,000-120,000 unit capsule,delayed rel (Creon) omeprazole magnesium 20 mg 20 mg PO BID 05/17/19 06/02/22 06/02/22 09:00 tablet,delayed release (Prilosec OTC) mecobalamin (vitamin B12) 1,000 1,000 mcg PO QAM 01/21/21 06/02/22 06/02/22 09:00 mcg disintegrating tablet,sublingual risperidone 2 mg tablet 2 mg PO HS 02/27/21 06/02/22 05/21/22 18:00 tamsulosin 0.4 mg capsule 0.4 mg PO HS #30 caps 04/29/21 06/02/22 05/21/22 18:00 oxycodone-acetaminophen 5 mg-325 1 tab PO Q6H PRN pain #30 tabs 08/08/21 06/02/22 06/02/22 06:00 mg tablet (Percocet) albuterol sulfate 90 mcg/actuation 2 inh inhalation Q6H PRN Shortness 09/24/21 06/02/22 04/28/22 breath activated powder inhaler Of Breath Or Wheezing ropinirole 0.25 mg tablet 0.25 mg PO HS 09/24/21 06/02/22 05/21/22 17:00 phenazopyridine 200 mg tablet 200 mg PO Q8H PRN pain #10 tabs 09/27/21 06/02/22 03/26/22 (Pyridium) potassium chloride 10 mEq 10 meq PO TID 12/04/21 06/02/22 06/02/22 12:00 capsule,extended release desipramine 50 mg tablet 50 mg PO BID 01/23/22 06/02/22 06/02/22 09:00 escitalopram oxalate 10 mg tablet 15 mg PO HS 01/23/22 06/02/22 05/22/22 06:00 (Lexapro) fluticasone fur. 100 mcg-umeclid 1 inh inhalation QAM 04/21/22 06/02/22 05/22/22 06:00 62.5 mcg-vilant 25 mcg inhalat.powder (Trelegy Ellipta) fosfomycin tromethamine 3 gram 1 packet PO Q OTHER DAY 1 day #1 ea 05/01/22 06/02/22 Unknown oral packet calcitriol 0.25 mcg capsule 0.25 mcg PO BID #60 caps 05/02/22 06/02/22 06/02/22 09:00 calcium carbonate 600 mg calcium 600 mg PO TID #60 tabs 05/02/22 06/02/22 06/02/22 12:00 (1,500 mg) tablet (Calcium) duloxetine 20 mg capsule,delayed 20 mg PO HS #30 caps 05/09/22 06/02/22 05/21/22 18:00 release (Cymbalta) torsemide 10 mg tablet 10 mg PO BID 05/09/22 06/02/22 06/02/22 09:00 pregabalin 150 mg capsule (Lyrica) 150 mg PO TID #90 caps 05/14/22 06/02/22 06/02/22 12:00 levothyroxine 88 mcg tablet 88 mcg PO QAM 05/19/22 06/02/22 06/02/22 08:00 vibegron 75 mg tablet (Gemtesa) 75 mg PO DAILY #30 tabs 05/22/22 06/02/22 Unknown lorazepam 0.5 mg tablet 0.5 mg PO BID PRN Anxiety 06/02/22 06/02/22 Unknown Active Medications Generic Name Dose Route Start Last Admin Trade Name Freq PRN Reason Stop Dose Admin Amoxicillin/Clavulanate Potassium 1 tab 06/04/22 08:00 06/04/22 09:32 Amoxicillin/Clavulanate 875 Mg Tab PO 06/09/22 07:59 1 tab BIDM CATE Administration Lipase/Protease/Amylase 9 cap 06/03/22 08:00 06/04/22 09:34 Pancreaze (Lipase 10,500u) Cap PO 07/03/22 07:59 9 cap TIDM CATE Administration Calcitriol 0.25 mcg 06/03/22 09:00 06/04/22 09:34 Calcitriol 0.25 Mcg Capsule PO 07/03/22 08:59 0.25 mcg BID CATE Administration Cyanocobalamin 1,000 mcg 06/03/22 09:00 06/04/22 09:33 Cyanocobalamin (B-12) 500 Mcg Tablet PO 07/03/22 08:59 1,000 mcg QAM CATE Administration Desipramine HCl 50 mg 06/03/22 09:00 06/04/22 09:33 Desipramine Hcl 50 Mg Tab PO 07/03/22 08:59 50 mg BID CATE Administration Duloxetine HCl 20 mg 06/03/22 21:00 06/03/22 20:24 Duloxetine Hcl 20 Mg Cap PO 07/03/22 20:59 20 mg HS CATE Administration Enoxaparin Sodium 40 mg 06/03/22 09:00 06/04/22 09:37 Enoxaparin Inj 40 Mg/0.4 Ml Syr SQ 07/03/22 08:59 40 mg QAM CATE Administration Escitalopram Oxalate 15 mg 06/03/22 21:00 06/03/22 20:23 Escitalopram Oxalate 10 Mg Tab PO 07/03/22 20:59 15 mg HS CATE Administration Fluticasone Furoate 1 puffs 06/03/22 09:00 06/04/22 09:32 Fluticasone Furoate 100mcg 14 Puffs/Inhaler INH 07/03/22 08:59 1 puffs DAILY CATE Administration Heparin Sodium (Porcine) 5 ml 06/03/22 03:06 06/03/22 18:37 Heparin 100 Unit/Ml 5ml Flush FLUSH 07/03/22 03:05 5 ml PRN PRN Administration Flush Levothyroxine Sodium 88 mcg 06/03/22 06:30 06/04/22 05:39 Levothyroxine Sodium 88 Mcg Tablet PO 07/03/22 06:29 88 mcg DAILYBB CATE Administration Lorazepam 0.5 mg 06/02/22 22:46 06/02/22 23:16 Lorazepam 0.5 Mg Tab PO 07/02/22 22:45 0.5 mg BID PRN Administration Anxiety Lorazepam 0.5 mg 06/03/22 21:00 06/03/22 20:22 Lorazepam 0.5 Mg Tab PO 07/03/22 20:59 0.5 mg HS CATE Administration Montelukast Sodium 10 mg 06/03/22 21:00 06/03/22 20:24 Montelukast Sodium 10 Mg Tablet PO 07/03/22 20:59 10 mg HS CATE Administration Multivitamins/Minerals 1 tab 06/03/22 09:00 06/04/22 09:33 Calcium 600mg + Vit D 400 Iu Tab PO 07/03/22 08:59 1 tab TID CATE Administration Oxycodone HCl 5 - 10 mg 06/02/22 21:29 06/04/22 05:43 Oxycodone Hcl Ir 5 Mg Tab (Immediate Release) PO 06/16/22 21:28 10 mg QID PRN Administration Pain Pantoprazole Sodium 40 mg 06/03/22 09:00 06/04/22 09:33 Pantoprazole 40 Mg Tab PO 07/03/22 08:59 40 mg BID CATE Administration Phenazopyridine HCl 200 mg 06/02/22 22:46 06/03/22 08:22 Phenazopyridine Hcl 200 Mg Tab PO 07/02/22 22:45 200 mg Q8H PRN Administration pain Pregabalin 150 mg 06/02/22 22:46 06/04/22 09:32 Pregabalin 150 Mg Cap PO 07/02/22 22:45 150 mg TID CATE Administration Risperidone 2 mg 06/02/22 22:46 06/03/22 20:24 Risperidone 2 Mg Tablet PO 07/02/22 22:45 2 mg HS CATE Administration Ropinirole HCl 0.25 mg 06/02/22 22:46 06/03/22 20:22 Ropinirole Hcl 0.25 Mg Tablet PO 07/02/22 22:45 0.25 mg HS CATE Administration Tamsulosin HCl 0.4 mg 06/03/22 21:00 06/03/22 20:23 Tamsulosin Hcl 0.4 Mg Cap PO 07/03/22 20:59 0.4 mg HS CATE Administration Umeclidinium/Vilanterol 1 puffs 06/03/22 09:00 06/04/22 09:31 Umeclidinium/Vilanterol 62.5/25mcg 7 Puffs/Inhaler INH 07/03/22 08:59 1 puffs DAILY CATE Administration Past Medical History Medical History Asthma Atherosclerosis of both lower extremities Chronic diastolic (congestive) heart failure Hospitalized March 2022 Follows w/[facility] (Dr. Otoole) Chronic kidney disease stage 3b Chronic sinusitis Chronic urinary tract infection Instructed to take pre op antibiotics prior to upcoming Lithotripsy on 05/22/22. States she will start 05/20/22 in the morning Chronic venous insufficiency COPD (chronic obstructive pulmonary disease) Depression GERD without esophagitis H/O concussion History of anemia History of esophageal dilatation Hyperlipidemia per records Hypothyroidism Incisional hernia Abdominal (from multiple surgeries/feeding tube) Kidney stones Lumbar transverse process fracture Pt reports lower back detioriating - can't lie flat/sleep on a chair MRSA (methicillin resistant staph aureus) culture positive History of Left wrist Had 3 nasal swab and all negative (through [facility] per pt) Obesity Pancreatic insufficiency chronic pancreatitis Peripheral neuropathy Port-A-Cath in place right side due to poor vascular access PUD (peptic ulcer disease) Had feeding tube for 28 years (has been removed for 11 years) Pulmonary hypertension mild per 07/[address] report PVC (premature ventricular contraction) Reactive hypoglycemia Secondary hyperparathyroidism Sepsis 05/2020 @ [facility], urosepsis 2/2 obstructing renal stone, S/P cysto/stent and ESWL Short bowel syndrome Sleep apnea complex sleep apnea, BIPAP SOB (shortness of breath) on exertion Trouble swallowing hx egd with dilation / "narrowing" Urinary leakage Wrist injury Scar tissue surrounding remote wrist ORIF several years ago resulting in intermittent inflammation per pt Exercise / Class Metabolic Activity III < 4 Walking/Shop/Light housework Past Family History Family History Mother Family history of diabetes mellitus Sister Family history of diabetes mellitus Family history of breast cancer Father Esophageal cancer Other Family history non-contributory No family history of adverse response to anesthesia Past Surgical History Surgical History H/O shoulder surgery RT arthroscopy 05/28/2021: LMA#4 atraumatic x 1 + PNB. Anesthesia postop progress note: "Pt denies SOB at this time. Block is functioning well. Vital signs stable and appropriate. Oxygenating well considering block placement and her comorbidities. Plan to discharge home with IS." History of appendectomy History of cardiac cath 08/2019 ([facility]): essentially normal coronary arteries angiographically, + luminal irregularities. no stents History of cholecystectomy History of colonoscopy History of cystoscopy 04/20/2020: MAC. Per anesthesia postop progress note: "The patient has a comp soledad medical history. She was given a total of 2mg IV versed and 20mg IV propofol for the procedure. Per Chantel, the [employer] ASSEMBLER, at the end of the procedure she noted some green bile like secretions in the patient's mouth which she immediately suctioned. Per Chantel, it did not appear that the patient aspirated as she did not cough or drop her oxygen saturation. The patient was transported to PACU where she remained hemodynamically stable with no complaints." History of esophagogastroduodenoscopy (EGD) History of gastrointestinal surgery multiple History of joint replacement Rt thumb History of knee replacement procedure of right knee History of open reduction and internal fixation (ORIF) procedure left wrist + manipulation (01/2018) and I&D (10/2019) 12/11/2017: LMA#4, atraumatic x 1. History of partial gastrectomy History of prior ablation treatment Right LE in January 2020 and left LE 04/18/20 History of sinus surgery History of tonsillectomy and adenoidectomy History of total abdominal hysterectomy and bilateral salpingo-oophorectomy S/P right rotator cuff repair S/P ureteral stent placement Status post laser lithotripsy of ureteral calculus most recent litho nov 2021 04/29/2021: LMA#4 atraumatic x 1. [facility]. 03/01/2021: LMA#4 atraumatic x 1. [place]. 02/04/2021: LMA#4 atraumatic x 1. [facility]. 07/04/2020: LMA#4 atraumatic x 1. [facility]. No issues per anesthesia postop progress notes. Past Anesthesia History No Hx of Anesthesia Complications and No Family Hx of Anesthesia Complications History of PONV No Hx of PONV and No Hx of Motion Sickness Social History Smoking Status: Never smoker Hx Alcohol Use: No Alcohol type: beer alcohol intake frequency: holidays/special occasions only Hx Substance Use: No substance use type: does not use Physical Exam Vital Signs Last Vital Signs Temp 36.8 C 06/04/22 06:59 Pulse 72 06/04/22 06:59 Resp 18 06/04/22 06:59 BP 110/69 06/04/22 06:59 Pulse Ox 96 06/04/22 06:59 O2 Del Method 06/04/22 06:59 O2 Flow Rate 2 06/04/22 06:59 Testing Laboratory Results 06/04/22 08:30 06/04/22 08:30 PT 11.3 Seconds (9.0-12.0) 06/02/22 17:14 INR 1.1 (0.9-1.1) 06/02/22 17:14 Urine Color Yellow 06/02/22 Unknown Urine Appearance Clear (Clear) 06/02/22 Unknown Urine pH 7.0 (4.5-7.5) 06/02/22 Unknown Ur Specific [place] 1.005 (1.000-1.030) 06/02/22 Unknown Urine Protein 1+ (Negative) H 06/02/22 Unknown Urine Glucose (UA) Negative (Negative) 06/02/22 Unknown Urine Ketones Negative (Negative) 06/02/22 Unknown Urine Nitrite Negative (Negative) 06/02/22 Unknown Ur Leukocyte Esterase 3+ (Negative) H 06/02/22 Unknown Urine WBC (Auto) >30 /hpf (0-5) H 06/02/22 Unknown Urine RBC (Auto) 0-4 /hpf (0-4) 06/02/22 Unknown U Hyaline Cast (Auto) 1-5 /lpf (0-5) 06/02/22 Unknown U Epithel Cells (Auto) 0-5 /lpf (0-5) 06/02/22 Unknown Urine Bacteria (Auto) 4+ (Negative) H 06/02/22 Unknown 06/02/22 Unknown Urine Culture - Final Urine,Clean Catch Escherichia coli Electrocardiogram Date: 03/07/22 Findings: + NSR @ (at 69 w/1st degree AVB) and + NSST changes Chest X-Ray Date: 06/02/22 Findings: + NAD Echocardiogram Date: 04/03/22 EF: 55% LV Function: normal RWMA: + none Other Findings: + LVH (mild) Valvular Disease: + AI (mild) and + MR (mild) Cardiac Catheterization Date: 08/17/19 Findings: + pertinent finding (just luminal irregularities,mild)
[2022-06-04] MEDS ORDERED: ATROPINE SULFATE 0.1 MG/ML 10ML SYR IV PRN (12:07)
[2022-06-04] MEDS ORDERED: ONDANSETRON INJ 2 MG/ML 2 ML VIAL IV PRN (12:07)
[2022-06-04] MEDS ORDERED: FLUMAZENIL 0.1 MG/1 ML 10 ML VIAL IV PRN (12:07)
[2022-06-04] MEDS ORDERED: NALOXONE HCL 0.4 MG/1 ML VIAL/CARP IV PRN (12:07)
[2022-06-04] MEDS ORDERED: fentaNYL citrate 100 MCG/2 ML VIAL IV PRN (12:07)
[2022-06-04] MEDS ORDERED: PROPOFOL IV EMULSION 10 MG/ML 20 ML VIAL IV ONE ×2 (12:12→12:13)
[2022-06-04] MEDS ORDERED: LIDOCAINE 2% MPF LOCAL 5 ML VIAL INFIL ONE (12:12)
[2022-06-04] MEDS ORDERED: ONDANSETRON INJ 2 MG/ML 2 ML VIAL ONE (12:18)
[2022-06-04] MEDS ORDERED: PHENYLEPHRINE 100MCG/ML 5ML SYR ONE (12:29)
--- NOTE | 2022-06-04 12:37 | Operative Report ---
[facility] Post Operative Report Pre & Post Diagnosis Operation Date: 06/04/22 08:05 Pre-Op Diagnosis: UTI, right ureteral stone Post-Op Diagnosis: UTI, right ureteral stone I identified the patient and participated in the time-out.: Yes Procedure Operation Date: 06/04/22 08:05 Cystoscopy, right retrograde pyelogram, right ureteral stent placement Surgeon Christopher Villafana MD [employer] None Estimated Blood Loss 0 Findings See Below Successful right ureteral stent placement, turbid urine draining from the stent at the end of the case. Specimens None Drains 6 [place] by 24 cm double-J ureteral stent in the right ureter. 16 [place] Cam catheter per urethra Anesthesia Type MAC Complications none Disposition Disposition: Recovery Room Indications This is a 71-year-old female with history of nephrolithiasis. She was recently admitted to the hospital with infectious symptoms and found to have a urinary tract infection. CT scan also indicated there is a 2 mm stone in the distal right ureter. Due to concern for obstructed infection, she is being brought to the OR today for right ureteral stent placement. Description of Procedure The patient was identified in the holding area and informed consent was confirmed. She was marked on the right side, then were taken to the operating room where anesthesia was initiated. She was placed in the dorsal lithotomy position with all pressure points appropriately padded. She was prepped and draped in the usual sterile fashion and a preoperative timeout was performed. A well-lubricated cystoscope was inserted per urethra and panendoscopy was performed. The urethra was normal in appearance. The bladder was of normal size with ureteral orifices in orthotopic position. There was a 2 mm stone fragment visualized within the lumen of the bladder. The right ureteral orifice was identified and cannulated with a 5 [place] open- ended catheter. A retrograde pyelogram was performed demonstrating the ureter was normal in course with some hydronephrosis of the right kidney. A 0.038" ZIPwire was advanced to the level of the kidney under fluoroscopic guidance. Over the wire, a 6 [place]e x 24 centimeter double-J ureteral stent was advanced. When the wire was removed, the proximal curl was visualized in the kidney with x-ray, and the distal curl visualized in the bladder with the cystoscope. There was drainage of turbid urine through the stent. At this point the bladder was drained and all instrumentation was removed. The stone fragment appeared to be flushed out from the bladder but could not be identified to send for analysis. The patient was then awakened from anesthesia and was brought to the PACU in stable condition. I attest to the content of the Intraoperative Record and any orders documented therein. Any exceptions are noted below.
--- NOTE | 2022-06-04 12:54 | Fluoroscopy Report ---
FL retrograde includes kub CLINICAL HISTORY: Right-sided retrograde pyelogram with stent placement. COMPARISON STUDY: None. FLUOROSCOPY TIME: 10 seconds. FINDINGS: 5 fluoroscopic spot images of the abdomen and pelvis demonstrate retrograde opacification o f the right renal collecting system/ureter followed by placement of a right ureteral stent. Only the proximal portion of the stent is identified and appears in good position. IMPRESSION: Fluoroscopic assistance provided for right ureteral stent placement as above. ACT 112: Negative or not required by law. Electronically signed by: Noel Crenshaw M.D. 06/04/2022 12:53 PM
[2022-06-04] MEDS ORDERED: DIATRIZOATE MEGLUMINE 30% 100ML VIAL INSTIL ONE (12:55)
--- NOTE | 2022-06-04 13:21 | Anesthesiology Progress Note ---
Date of Service June 04, 2022 Anesthesia Post Procedure Vital Signs Vital Signs: Temp Pulse Pulse Resp BP BP Pulse Ox 06/04/22 13:10 36.6 C 72 12 116/57 L 99 06/04/22 13:00 76 13 113/58 L 91 06/04/22 12:50 73 12 121/59 L 99 06/04/22 12:45 74 21 88/48 L 100 06/04/22 12:42 36.8 C 74 18 83/49 L 99 06/04/22 11:25 37 C 73 18 107/81 93 06/04/22 07:45 06/04/22 06:59 36.8 C 72 18 110/69 96 06/03/22 22:24 93 06/03/22 22:23 37.2 C 81 16 126/73 87 L 06/03/22 15:41 36.8 C 72 18 107/67 92 O2 Del Method O2 Flow Rate 06/04/22 13:10 Nasal Cannula 2 06/04/22 13:00 Room Air 06/04/22 12:50 Oxymask 5 06/04/22 12:45 Oxymask 5 06/04/22 12:42 Oxymask 5 06/04/22 11:25 Room Air 06/04/22 07:45 Room Air 06/04/22 06:59 Nasal Cannula 2 06/03/22 22:24 Nasal Cannula 06/03/22 22:23 Room Air 06/03/22 15:41 Room Air Pain Intensity Right Lower Abdomen: Pain Intensity: 9 Transfer of Care Handoff Completed per policy Notes Mental Status: alert / awake / arousable Patient Amnestic to Procedure: Yes Nausea / Vomiting: adequately controlled Pain: adequately controlled Airway Patency, RR, SpO2: stable & adequate BP & HR: stable & adequate Hydration State: stable & adequate Anesthetic Complications: no major complications apparent
[2022-06-04] MEDS: HEPARIN 100 UNIT/ML 5ML FLUSH FLUSH PRN (14:01)
--- NOTE | 2022-06-04 14:23 | Hospitalist Progress Note ---
Date of Service June 04, 2022 Assessment & Plan (1) Complicated UTI (urinary tract infection): Plan: 1) Ureteric Colic, hx of recurrent stones s/p right ureteral stent placement 06/04 2) UTI 2/2 pansensitive E.coli Plan: -Patient underwent a stent placement by urology today. We will follow-up postop. -Antibiotics changed to Augmentin based on sensitivity profile. Patient had undergone penicillin allergy test in the past as outpatient and did not have any reaction. Hyponatremia secondary to illness, home diuretics contributory- Resolved -Improved with IV hydration. -Continue holding off diuretics for now. Urine output is -163 mL. chronic diastolic heart failure (EF 55 to 60%, TTE 2021), patient on the dry side LARRY on BIPAP, pulmonary hypertension, asthma -pulmonary status currently stable history of gastric bypass hx ankylosing spondylitis Hypokalemia secondary to decreased p.o. intake and home diuretic Rx mood/ anxiety disorder, at baseline Replace electrolytes DVT prophylaxis. Lovenox subcu Full code Admission and Anticipated Discharge Date Admission Date: June 02, 2022 Subjective Patient seen and examined at bedside. She states that pain has resolved completely. Cam is in place draining clear urine. She was afebrile overnight. Review of Systems Review of Systems: All systems reviewed & are unremarkable except as noted in Subjective Physical Exam Physical Exam: GENERAL: Comfortable, slightly anxious, obese, no respiratory distress SKIN: Normal color, warm HEENT: Bespectacled, pink palpebral conjunctivae, no ptosis, dry buccal mucosa NECK : Supple, short, no tenderness CHEST : Decreased breath sounds, no tenderness. Port-A-Cath in right side. HEART : RRR, systolic murmur ABDOMEN: Some distention, minimal right-sided abdominal tenderness nontender EXTREMITIES : Bilateral LE swelling, no LE tenderness NEUROLOGIC : Coherent, no facial asymmetry, no other gross focality Results & Data Results & Data ([facility]) Vital Signs (Past 12 Hours) Vital Signs Temp Pulse Pulse Resp BP BP Pulse Ox 06/04/22 13:50 36.8 C 75 14 108/66 98 06/04/22 13:40 74 12 120/55 L 97 06/04/22 13:30 74 12 116/60 97 06/04/22 13:20 73 12 118/54 L 98 06/04/22 13:10 36.6 C 72 12 116/57 L 99 08/31/22 13:00 76 13 113/58 L 91 06/04/22 12:50 73 12 121/59 L 99 06/04/22 12:45 74 21 88/48 L 100 06/04/22 12:42 36.8 C 74 18 83/49 L 99 06/04/22 11:25 37 C 73 18 107/81 93 06/04/22 07:45 06/04/22 06:59 36.8 C 72 18 110/69 96 O2 Del Method O2 Flow Rate 06/04/22 13:50 Nasal Cannula 2 06/04/22 13:40 Nasal Cannula 2 06/04/22 13:30 Nasal Cannula 2 06/04/22 13:20 Nasal Cannula 2 06/04/22 13:10 Nasal Cannula 2 06/04/22 13:00 Room Air 06/04/22 12:50 Oxymask 5 06/04/22 12:45 Oxymask 5 06/04/22 12:42 Oxymask 5 06/04/22 11:25 Room Air 06/04/22 07:45 Room Air 06/04/22 06:59 Nasal Cannula 2 Diagnostic Findings Laboratory Results WBC 7.31 K/ul (4.8-10.8) 06/04/22 08:30 RBC 3.85 M/uL (3.93-5.22) L 06/04/22 08:30 Hgb 11.3 g/dl (12.0-16.0) L 06/04/22 08:30 Hct 35.7 % (34.1-44.9) 06/04/22 08:30 MCV 92.7 fL (80.0-100.0) 06/04/22 08:30 MCH 29.4 pg (25.0-34.0) 06/04/22 08:30 MCHC 31.7 g/dL (32.0-36.0) L 06/04/22 08:30 RDW Std Deviation 45.9 fL (36.4-46.3) 06/04/22 08:30 RDW Coeff of David 13.6 % (11.5-14.5) 06/04/22 08:30 Plt Count 192 K/uL (130-400) 06/04/22 08:30 MPV 10.0 fL (9.4-12.3) 06/04/22 08:30 Immature Gran % (Auto) 0.4 % 06/03/22 06:23 Neut % (Auto) 78.1 % 06/03/22 06:23 Lymph % (Auto) 10.9 % 06/03/22 06:23 [place] % (Auto) 10.3 % 06/03/22 06:23 Eos % (Auto) 0.1 % 06/03/22 06:23 Baso % (Auto) 0.2 % 06/03/22 06:23 Neut # (Auto) 6.28 K/uL (1.4-6.5) 06/03/22 06:23 Lymph # (Auto) 0.88 K/uL (1.2-3.4) L 06/03/22 06:23 Clinton # (Auto) 0.83 K/uL (0.24-0.82) H 06/03/22 06:23 Eos # (Auto) 0.01 K/uL (0-0.50) 06/03/22 06:23 Baso # (Auto) 0.02 K/uL (0-0.2) 06/03/22 06:23 Immature Gran # (Auto) 0.03 K/uL (0.00-0.02) H 06/03/22 06:23 PT 11.3 Seconds (9.0-12.0) 06/02/22 17:14 INR 1.1 (0.9-1.1) 06/02/22 17:14 Sodium 137 mmol/L (136-145) 06/04/22 08:30 Potassium 3.9 mmol/L (3.5-5.1) 06/04/22 08:30 Chloride 104 mmol/L (98-107) 06/04/22 08:30 Carbon Dioxide 28 mmol/L (21-32) 06/04/22 08:30 Anion Gap 5 (3-11) 06/04/22 08:30 BUN 29 mg/dl (6-23) H 06/04/22 08:30 Creatinine 1.02 mg/dl (0.6-1.2) 06/04/22 08:30 Est Cr Clr Drug Dosing 54.1 ml/min 06/04/22 08:30 Est GFR ( Amer) 65.0 ml/min 06/04/22 08:30 Est GFR (Non-Af Amer) 56.1 ml/min 06/04/22 08:30 BUN/Creatinine Ratio 28.4 (10-20) H 06/04/22 08:30 Glucose 104 mg/dl (70-99(Fasting)) H 06/04/22 08:30 Calcium 8.4 mg/dl (8.5-10.1) L 06/04/22 08:30 Magnesium 2.1 mg/dl (1.7-2.4) 06/02/22 16:48 Total Bilirubin 0.5 mg/dl (0.2-1.0) 06/02/22 16:48 AST 17 U/L (13-39) 06/02/22 16:48 ALT 16 U/L (7-52) 06/02/22 16:48 Alkaline Phosphatase 109 U/L (34-104) H 06/02/22 16:48 Total Protein 6.5 gm/dl (6.0-8.3) 06/02/22 16:48 Albumin 3.8 gm/dl (3.4-5.0) 06/02/22 16:48 Globulin 2.7 gm/dl (2.5-4.0) 06/02/22 16:48 Albumin/Globulin Ratio 1.4 (0.9-2) 06/02/22 16:48 Procalcitonin 0.12 ng/ml (0-0.5) 06/02/22 19:13 TSH 1.045 uIu/ml (0.300-4.500) 06/02/22 19:13 Urine Color Yellow 06/02/22 Unknown Urine Appearance Clear (Clear) 06/02/22 Unknown Urine pH 7.0 (4.5-7.5) 06/02/22 Unknown Ur Specific [place] 1.005 (1.000-1.030) 06/02/22 Unknown Urine Protein 1+ (Negative) H 06/02/22 Unknown Urine Glucose (UA) Negative (Negative) 06/02/22 Unknown Urine Ketones Negative (Negative) 06/02/22 Unknown Urine Blood 2+ (Negative) H 06/02/22 Unknown Urine Nitrite Negative (Negative) 06/02/22 Unknown Urine Bilirubin Negative (Negative) 06/02/22 Unknown Urine Urobilinogen Negative (Negative) 06/02/22 Unknown Ur Leukocyte Esterase 3+ (Negative) H 06/02/22 Unknown Urine WBC (Auto) >30 /hpf (0-5) H 06/02/22 Unknown Urine RBC (Auto) 0-4 /hpf (0-4) 06/02/22 Unknown U Hyaline Cast (Auto) 1-5 /lpf (0-5) 06/02/22 Unknown U Epithel Cells (Auto) 0-5 /lpf (0-5) 06/02/22 Unknown Urine Bacteria (Auto) 4+ (Negative) H 06/02/22 Unknown SARS-CoV-2, RNA, NAAT NEGATIVE (NEGATIVE) 06/02/22 Unknown Impressions Abdomen/Pelvis CT 06/02/22 17:13 CT abd pelvis wo con CLINICAL HISTORY: right flank pain, hx stones TECHNIQUE: Helical axial images of the abdomen and pelvis were obtained. Automated dose lowering techniques and/or adjustment according to patient size were utilized for this exam. This exam was performed without intravenous contrast. CT DOSE: 970.90 mGy.cm COMPARISON: Comparison is made to CT abdomen pelvis 04/23/2022 FINDINGS: Lower chest: Bibasilar atelectasis versus scarring is seen. Liver: The liver measures 15 cm on craniocaudal dimension. There is suggestion of nodularity of the surface. Gallbladder and biliary tree: Patient is status post cholecystectomy. Physiologic prominence of the biliary ducts is noted. Pancreas: Fatty replacement of the pancreas is seen. Spleen: Unremarkable. Adrenals: Unremarkable. Kidneys and ureters: Numerous nonobstructive stones are seen bilaterally. In addition, there is right hydronephrosis and hydroureter. There is a stone in the right distal ureter measuring approximately 2 mm. The right kidney is atrophic. Bladder: Bladder is underdistended but mildly thickened. Reproductive organs: Patient is status post hysterectomy. Bowel: Patient is status post bowel resection. The appendix is surgically absent. There is postsurgical changes of gastric bypass surgery with a hiatal hernia. Lymph nodes Retroperitoneal: Unremarkable. Pelvic: Unremarkable. Mesenteric: Unremarkable. Peritoneum: Normal. Vessels: Unremarkable. Abdominal wall: There is diastases of the abdominal wall musculature with bulging of multiple bowel loops into the subcutaneous tissues. Bones: Degenerative changes in the visualized spine. IMPRESSION: 1. There is a 2 mm obstructive stone in the right distal ureter with resulting hydronephrosis/hydroureter. Additional nonobstructive stones are seen bilaterally. 2. Bladder wall thickening may represent chronic outlet obstruction, however c ystitis cannot be excluded. Correlation with urinalysis is recommended. 3. Additional findings as above. ACT 112: Negative or not required by law. Electronically signed by: Evan Ventura M.D. 06/02/2022 6:37 PM Chest X-Ray 06/02/22 20:15 XR chest 1V portable CLINICAL HISTORY: hyponatremia TECHNIQUE: Single frontal radiograph of the chest was obtained. Comparison: Comparison is made to chest radiograph 03/06/2022 FINDINGS: A port catheter is seen. Cardiomegaly is noted. Reticular interstitial opacities are seen. No evidence of pleural effusion or pneumothorax. IMPRESSION: No acute chest disease. ACT 112: Negative or not required by law. Electronically signed by: Evan Ventura M.D. 06/02/2022 9:00 PM Retrograde Pyelogram 06/04/22 12:00 FL retrograde includes kub CLINICAL HISTORY: Right-sided retrograde pyelogram with stent placement. COMPARISON STUDY: None. FLUOROSCOPY TIME: 10 seconds. FINDINGS: 5 fluoroscopic spot images of the abdomen and pelvis demonstrate retrograde opacification of the right renal collecting system/ureter followed by placement of a right ureteral stent. Only the proximal portion of the stent is identified and appears in good position. IMPRESSION: Fluoroscopic assistance provided for right ureteral stent placement as above. ACT 112: Negative or not required by law. Electronically signed by: Noel Crenshaw M.D. 06/04/2022 12:53 PM
[2022-06-04] MEDS: PHENAZOPYRIDINE HCL 200 MG TAB PO PRN (16:53)
[2022-06-04] MEDS: LORazepam 0.5 MG TAB PO SCH (20:23)
[2022-06-04] MEDS: ESCITALOPRAM OXALATE 10 MG TAB PO SCH (20:23)
[2022-06-04] MEDS: TAMSULOSIN HCL 0.4 MG CAP PO SCH (20:23)
[2022-06-04] MEDS: MONTELUKAST SODIUM 10 MG TABLET PO SCH (20:24)
[2022-06-04] MEDS: DULoxetine HCL 20 MG CAP PO SCH (20:24)
[2022-06-04] MEDS: rOPINIRole HCL 0.25 MG TABLET PO SCH (20:25)
[2022-06-04] MEDS: risperiDONE 2 MG TABLET PO SCH (20:25)
[2022-06-05] MEDS: LEVOTHYROXINE SODIUM 88 MCG TABLET PO SCH (06:00)
--- NOTE | 2022-06-05 08:06 | Urology Progress Note ---
Date of Service June 05, 2022 Assessment & Plan (1) Ureterolithiasis: (2) Acute UTI (urinary tract infection): Plan: - Follow-up of 2 mm right mid/distal ureteral stone, UTI. - Pt POD#1 s/p cystoscopy, right retrograde pyelogram, and right ureteral stent placement. - Doing well, progressing as expected. - Afebrile, no new lab work today - creatinine and WBC were within normal limits yesterday. - Urine culture grew out E. coli. She has been transitioned to PO Augmentin. - Tolerating right ureteral stent with minimal bother. - Cam intact and draining, urine clearer today. - She was afebrile overnight - okay to remove Cam and monitor for void. - Okay to d/c from perspective when medically stable. - Recommend d/c with course of PO antibiotics, Tamsulosin, prn Pyridium and prn pain medication for stent management. - Expected clinical course reviewed, all questions answered. - Will arrange outpatient follow-up with our service to discuss definitive stone management. - will sign off. Admission and Anticipated Discharge Date Admission Date: June 02, 2022 Subjective Patient seen this AM. She is awake and resting in bed. No acute issues overnight, though notes that she did not sleep well. No flank pain. Reports mild discomfort in right lower abdomen. No dysuria or hematuria. Cam intact and draining clear orange urine, small amount of sediment noted. No nausea or vomiting. No fever or chills. Review of Systems Constitutional: as per Subjective / HPI Gastrointestinal: as per Subjective / HPI Genitourinary: as per Subjective / HPI Physical Exam Constitutional: well developed, well nourished and + obese; no acute distress and not ill appearing Respiratory: normal respiratory effort and able to speak in complete sentences; no respiratory distress and no labored breathing Gastrointestinal (Abdomen): Inspection/Auscultation: abdomen normal to inspection; abdomen not distended Percussion/Palpation: abdomen soft; abdomen nontender and no guarding Musculoskeletal: Head/Neck/Chest: normocephalic and head atraumatic Neurologic: moves all extremities and awake Psychiatric: Orientation: alert and oriented x 3 Genitourinary: Cam intact and draining clear light orange urine, small sediment noted Results & Data ([facility]) Vital Signs (Past 12 Hours) Vital Signs Temp Pulse Resp BP Pulse Ox O2 Del Method O2 Flow Rate 06/05/22 06:28 36.9 C 69 16 105/68 96 Room Air 06/05/22 04:20 36.5 C 71 16 107/68 98 Nasal Cannula 3 06/04/22 23:09 36.9 C 67 16 111/71 96 Room Air PG Care Time/CCT Total # of Minutes Spent Total Time Spent with Patient: Total time spent is greater than 50% in coordination of care (as documented) at patient's floor/unit and/or counseling patient: Coding Level of Care Code 85768 Subseq Hosp Care Lvl 2 Diagnoses Ureterolithiasis N20.1 Acute UTI (urinary tract infection) N39.0
[2022-06-05] MEDS: UMECLIDINIUM/VILANTEROL 62.5/25MCG 7 PUFFS/INHALER INH SCH (09:21)
[2022-06-05] MEDS: AMOXICILLIN/CLAVULANATE 875 MG TAB PO SCH (09:22)
[2022-06-05] MEDS: CALCITRIOL 0.25 MCG CAPSULE PO SCH (09:24)
[2022-06-05] MEDS: CALCIUM 600MG + VIT D 400 IU TAB PO SCH (09:25)
[2022-06-05] MEDS: CYANOCOBALAMIN (B-12) 500 MCG TABLET PO SCH (09:25)
[2022-06-05] MEDS: PANCREAZE (LIPASE 10,500U) CAP PO SCH ×2 (09:26→12:14)
[2022-06-05] MEDS: PANTOprazole 40 MG TAB PO SCH (09:29)
[2022-06-05] MEDS: FLUTICASONE FUROATE 100MCG 14 PUFFS/INHALER INH SCH (09:29)
[2022-06-05] MEDS: DESIPRAMINE HCL 50 MG TAB PO SCH (09:29)
[2022-06-05] MEDS: ENOXAPARIN INJ 40 MG/0.4 ML SYR SQ SCH (09:30)
[2022-06-05] MEDS: PREGABALIN 150 MG CAP PO SCH (09:32)
--- NOTE | 2022-06-05 14:02 | Discharge Summary ---
Date of Service June 05, 2022 Admission HPI Per Admitting Provider History obtained from patient and records. Medical history significant for chronic diastolic heart failure (EF 55 to 60%, TTE 2021), LARRY on BIPAP, pulmonary hypertension, asthma, history of gastric bypass, hyperparathyroidism as per records, ankylosing spondylitis as per records, recurrent calcium urolithiasis, history pancreatic insufficiency/malabsorption as per records, mood/ anxiety disorder, Recent confinement 2 months ago for decompensated heart failure and junctional bradycardia. Patient underwent outpatient ESWL by DONNA 2 weeks ago. This morning, patient experience achy right sided flank pain with nausea, no emesis. Hematuria. No fever, no chills. Episode reminiscent of kidney stone pain. No chest pain, no SOB, no unusual fluid retention. IV ciprofloxacin administered at the ER. 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 Admission Exam Per Admitting Provider GENERAL: Comfortable, slightly anxious, obese, no respiratory distress SKIN: Normal color, warm HEENT: Bespectacled, pink palpebral conjunctivae, no ptosis, dry buccal mucosa NECK : Supple, short, no tenderness CHEST : Decreased breath sounds, no tenderness HEART : RRR, systolic murmur ABDOMEN: Some distention, minimal right-sided abdominal tenderness nontender EXTREMITIES : Bilateral LE swelling, no LE tenderness NEUROLOGIC : Coherent, no facial asymmetry, no other gross focality Principal Diagnosis 1) Ureteric Colic, hx of recurrent stones s/p right ureteral stent placement 06/04 2) UTI 2/2 pansensitive E.coli 3) Hyponatremia Discharge Exam Gen: WD/WN, NAD, sitting in bedside chair, A&Ox3 HEENT: Normocephalic, atraumatic, conjunctivae moist, sclerae anicteric, mucous membranes moist Lung: Clear to Auscultation bilaterally, no wheezes/rales/rhonchi Heart: Regular rate, regular rhythm, no murmurs, rubs, or gallops Abdomen: Soft, NT, ND +BS x 4 Extremities: no edema Skin: Warm, no rash Discharge Data Allergies Allergy/AdvReac Type Severity Reaction Status Date / Time bethanechol Allergy Unknown RASH, Verified 06/02/22 20:16 "FEELS FUNNY" Cephalosporins Allergy Unknown RASH, Verified 06/02/22 20:16 DIARRHEA clindamycin Allergy Unknown Unknown Verified 06/02/22 20:16 dipyridamole Allergy Unknown UNKNOWN Verified 06/02/22 20:16 droperidol Allergy Unknown Unknown Verified 06/02/22 20:16 ertapenem Allergy Unknown RASH Verified 06/02/22 20:16 levofloxacin Allergy Unknown RASH,TURNED Verified 06/02/22 20:16 RED promethazine Allergy Unknown UNKNOWN Verified 06/02/22 20:16 Sulfa (Sulfonamide Allergy Unknown Generalized Verified 06/02/22 20:16 Antibiotics) Rash tobramycin Allergy Unknown UNKNOWN Verified 06/02/22 20:16 doxycycline AdvReac Severe severe Verified 05/22/22 12:31 Diarrhea, nausea aspirin AdvReac Unknown BLEEDING Verified 05/22/22 12:31 bupropion AdvReac Unknown NERVOUS Verified 05/22/22 12:31 REACTION cephalexin AdvReac Unknown GI SYMPTOMS Verified 05/22/22 12:31 metolazone AdvReac Unknown ELECTROLYTE Verified 05/22/22 12:31 ISSUES morphine AdvReac Unknown NERVOUS Verified 05/22/22 12:31 REACTION TO IT nitrofurantoin AdvReac Unknown Vomiting Verified 05/22/22 12:31 [From Macrobid] prochlorperazine AdvReac Unknown NERVOUS Verified 05/22/22 12:31 REACTION tedizolid AdvReac Unknown GI SYMPTOMS Verified 05/22/22 12:31 Consultations 06/02/22 20:16 ED Decision to Admit Stat Procedures Performed Operation Date: 06/04/22 08:05 Actual Procedures p Cystoscopy, Right Retrograde Pyelogram, Right Stent Placement(Right) - Christopher Villafana MD Ordered Studies 06/02/22 17:13 CT abd pelvis wo con Stat 06/04/22 12:00 FL retrograde includes kub Routine Hospital Course (1) Ureterolithiasis: (2) Hyponatremia: (3) Complicated UTI (urinary tract infection): Plan This is a 71yo F with PMH of chronic diastolic heart failure (EF 55 to 60%, TTE 2021), LARRY on BIPAP, pulmonary hypertension, asthma, history of gastric bypass, hyperparathyroidism as per records, ankylosing spondylitis as per records, recurrent calcium urolithiasis, history pancreatic insufficiency/malabsorption as per records, mood/ anxiety disorder who presented with ureteral colic and is status post right ureteral stent placement on 06/04. Per urology, continue Flomax and Pyridium as needed. Follow-up in urology clinic for definitive stone management. Found to have complicated UTI growing pansensitive E. coli on culture. Transition to Augmentin at time of discharge. Initial hyponatremia resolved with IV fluids. Patient is hemodynamically stable at time of discharge. Total Time Total Time Spent Total Time Spent (In Minutes): 45 Discharge Plan Discharge Items Patient Disposition: Home - Self-Care Reason For Visit: COMP UTI Discharge Diagnosis: 1) Ureteric Colic, hx of recurrent stones s/p right ureteral stent placement 06/04 2) UTI 2/2 pansensitive E.coli 3) Hyponatremia Activity: Resume your previous activity Non-emergency contact: Primary Care Provider Call non-emergency contact if: you have any medication questions and your symptoms worsen Follow-up/Referrals: Christopher Villafana MD [Physician] - (Dr. Kory Bruce's office will call the patient with a hospital follow up appointment once she speaks to Physician.) Frederick Reynaga DO [Primary Care Provider] - (Date & Time 06/12/2022 10:00 AM Provider Corey Pinto MD Department Family Practice [facility] ) Diet: Regular Addtl Attending Provider Instructions: You are prescribed Augmentin 1 tablet twice daily for next 7 days. Please follow-up with your primary care doctor and go to your urology appointment. Please continue to take other medication as prescribed. Pending Studies at Discharge: No Stand-Alone Forms: My [facility] [employer], Smoking Cessation Medications and DC Order Prescriptions: New amoxicillin-pot clavulanate 875-125 mg Tablet 1 tab PO BIDM 7 Days Qty: 14 0RF tamsulosin [Flomax] 0.4 mg capsule 0.4 mg PO DAILY Qty: 30 0RF Rx Instructions: Take once daily phenazopyridine [Pyridium] 100 mg tablet 100 mg PO TID PRN (Reason: pain) Qty: 9 0RF Rx Instructions: Take up to three times daily as needed for urinary pain Continued lorazepam [Ativan] 0.5 mg tablet 0.5 mg PO HS Label Comments: usually one at bedtime colesevelam [WelChol] 625 mg tablet 625 mg PO TID Label Comments: before meals , morning , noon and night montelukast [Singulair] 10 mg tablet 10 mg PO HS Prilosec OTC 20 mg tablet,delayed release (DR/EC) 20 mg PO BID mecobalamin (vitamin B12) 1,000 mcg tablet,disintegrating 1,000 mcg PO QAM Rx Instructions: place tablet under tongue and allow to dissolve for at least30 secs before swallowing oxycodone-acetaminophen [Percocet] 5-325 mg tablet 1 tab PO Q6H PRN (Reason: pain) Qty: 30 0RF desipramine 50 mg tablet 50 mg PO BID escitalopram oxalate [Lexapro] 10 mg tablet 15 mg PO HS fosfomycin tromethamine 3 gram packet 1 packet PO Q OTHER DAY 1 Days Qty: 1 0RF Rx Instructions: Take the day before ESWL procedure in the morning calcium carbonate [Calcium 600] 600 mg calcium (1,500 mg) tablet 600 mg PO TID Qty: 60 0RF calcitriol 0.25 mcg capsule 0.25 mcg PO BID Qty: 60 1RF pregabalin [Lyrica] 150 mg capsule 150 mg PO TID Qty: 90 5RF Gemtesa 75 mg tablet 75 mg PO DAILY Qty: 30 11RF torsemide 10 mg tablet 10 mg PO BID duloxetine [Cymbalta] 20 mg capsule,delayed release(DR/EC) 20 mg PO HS Qty: 30 5RF ipratropium-albuterol 0.5 mg-3 mg(2.5 mg base)/3 mL Solution For Nebulization 3 ml INHALATION Q4H PRN (Reason: Shortness Of Breath Or Wheezing) Creon 24,000-76,000 -120,000 unit Capsule,Delayed Release(Dr/Ec) 4 cap PO TID Label Comments: before meals ropinirole 0.25 mg tablet 0.25 mg PO HS albuterol sulfate 90 mcg/actuation aerosol powdr breath activated 2 inh INH Q6H PRN (Reason: Shortness Of Breath Or Wheezing) phenazopyridine [Pyridium] 200 mg tablet 200 mg PO Q8H PRN (Reason: pain) Qty: 10 0RF potassium chloride 10 mEq capsule, extended release 10 meq PO TID Trelegy Ellipta 100-62.5-25 mcg blister with device 1 inh inhalation QAM Rx Instructions: USE ONE INHALATION EVERY MORNING risperidone 2 mg Tablet 2 mg PO HS tamsulosin 0.4 mg capsule 0.4 mg PO HS Qty: 30 0RF Label Comments: TAKES HS levothyroxine 88 mcg tablet 88 mcg PO QAM lorazepam 0.5 mg Tablet 0.5 mg PO BID PRN (Reason: Anxiety) Discharge Orders: Discharge Order (Routine); Ordered 06/05/22 Ordered By: Souleymane Markham/Other Patient Handouts: Understanding Kidney Stones, Preventing Kidney Stones Admission Data Admit Date/Time: 06/02/22 21:27 Attending Provider: Souleymane Rodarte Admit Provider: Austin Cummings Primary Care Provider: Frederick Reynaga Other Providers: Austin Cummings ; Janet Younger Other Interventions: Discharge Summary Assessment (RN) Last Done: 06/05/22 12:42 Supervising Physician Co-Signing Physician Notes Patient seen and examined independently. Agree with above assessment of Janet Younger PA-C. Patient discharged on Augmentin for 7 days with instruction to follow-up with PCP and urologist. Trial of void was done on the day of discharge successfully.
== END 2022-06-05 13:53 | disposition home health service (06) | DRG 660 ==
LOC: ED 16:25 → 3W 21:27

== ENCOUNTER 2022-11-15 21:24 | Inpatient (IN) ==
[~2022-11-15 21:24] MED LIST changes: -POTASSIUM CHLORIDE CRTAB 20 MEQ TABCR PO ONE; +POTASSIUM CHLORIDE PWD 20 MEQ PACK PO ONE
--- NOTE | 2022-11-15 21:46 | Emergency Department Note ---
History of Present Illness General Chief complaint: Fall Stated complaint: fall Time Seen by Provider: 11/15/22 21:26 History of Present Illness Maximum Pain Intensity: 7 This 72-year-old female presents to the ER via EMS for increasing weakness and frequent falls for the past few days. Patient has a history of ESBL. Patient states she is feels weak and could be related to her urine infection. Patient states she fell multiple times and did hit her head. Patient denies chest pain, dyspnea, abdominal pain, vomiting, diarrhea, fever, chills. EMS went to her house 3 times today to pick her up after falls. Home Medications Medication Instructions Recorded Confirmed Type colesevelam 625 mg tablet (WelChol) 625 mg PO TID 06/17/18 11/15/22 History montelukast 10 mg tablet 10 mg PO HS 06/17/18 11/15/22 History (Singulair) ipratropium 0.5 mg-albuterol 3 mg 3 ml inhalation Q4H PRN Shortness 05/05/19 11/15/22 History (2.5 mg base)/3 mL nebulization Of Breath Or Wheezing soln [id number]-[id number]-rkdozgk 4 cap PO TID 05/05/19 11/15/22 History 24,000-76,000-120,000 unit capsule,delayed rel (Creon) omeprazole magnesium 20 mg 20 mg PO BID 05/17/19 11/15/22 History tablet,delayed release (Prilosec OTC) mecobalamin (vitamin B12) 1,000 1,000 mcg PO QAM 01/21/21 11/15/22 History mcg disintegrating tablet,sublingual risperidone 2 mg tablet 2 mg PO HS 02/27/21 11/15/22 History potassium chloride 10 mEq 10 meq PO TID 12/04/21 11/15/22 History capsule,extended release desipramine 50 mg tablet 50 mg PO BID 01/23/22 11/15/22 History levothyroxine 88 mcg tablet 88 mcg PO QAM 05/19/22 11/15/22 History calcitriol 0.5 mcg capsule 0.5 mcg PO BID #60 caps 07/02/22 11/15/22 Rx calcium carbonate 600 mg calcium 1,200 mg PO TID #180 tabs 07/02/22 11/15/22 Rx (1,500 mg) tablet (Calcium) albuterol sulfate 90 mcg/actuation 2 inh inhalation Q6H PRN Shortness 07/31/22 11/15/22 Rx breath activated powder inhaler Of Breath Or Wheezing #1 ea fluticasone fur. 100 mcg-umeclid 1 inh inhalation QAM #60 ea 07/31/22 11/15/22 Rx 62.5 mcg-vilant 25 mcg inhalat.powder (Trelegy Ellipta) pregabalin 100 mg capsule 100 mg PO TID #90 caps 10/01/22 11/15/22 Rx duloxetine 20 mg capsule,delayed 20 mg PO HS #30 caps 10/29/22 11/15/22 Rx release (Cymbalta) lamotrigine 25 mg tablet 25 mg PO BID #60 tabs 11/06/22 11/15/22 Rx lorazepam 0.5 mg tablet 0.5 mg PO BID PRN Anxiety 11/06/22 11/15/22 History cholecalciferol (vitamin D3) 25 50 mcg PO DAILY 11/15/22 11/15/22 History mcg (1,000 unit) capsule (Vitamin D3) escitalopram oxalate 20 mg tablet 20 mg PO QAM 11/15/22 11/15/22 History metolazone 2.5 mg tablet 2.5 mg PO DAILY PRN WT >199 LBS. 11/15/22 11/15/22 History cfnbdnrmclci-pwlmxvsz-twglqs tablet 1 tab PO DAILY 11/15/22 11/15/22 History oxycodone-acetaminophen 5 mg-325 1 tab PO Q6H PRN Pain 11/15/22 11/15/22 History mg tablet (Percocet) ropinirole 0.5 mg tablet 0.5 mg PO HS 11/15/22 11/15/22 History rosuvastatin 10 mg tablet 10 mg PO DAILY 11/15/22 11/15/22 History tamsulosin 0.4 mg capsule (Flomax) 0.4 mg PO DAILY 11/15/22 11/15/22 History torsemide 20 mg tablet 40 mg PO BID 11/15/22 11/15/22 History valacyclovir 500 mg tablet 500 mg PO DAILY 11/15/22 11/15/22 History Allergies Allergy/AdvReac Type Severity Reaction Status Date / Time bethanechol Allergy Intermediate RASH, Verified 11/15/22 22:07 "FEELS FUNNY" Cephalosporins Allergy Intermediate RASH, Verified 11/15/22 22:07 DIARRHEA ertapenem Allergy Intermediate RASH Verified 11/15/22 22:07 levofloxacin Allergy Intermediate RASH,TURNED Verified 11/15/22 22:07 RED Sulfa (Sulfonamide Allergy Intermediate Generalized Verified 11/15/22 22:07 Antibiotics) Rash clindamycin Allergy Unknown Unknown Verified 11/15/22 22:07 dipyridamole Allergy Unknown UNKNOWN Verified 11/15/22 22:07 droperidol Allergy Unknown Unknown Verified 11/15/22 22:07 promethazine Allergy Unknown UNKNOWN Verified 11/15/22 22:07 tobramycin Allergy Unknown UNKNOWN Verified 11/15/22 22:07 aspirin AdvReac Severe BLEEDING Verified 11/15/22 22:07 doxycycline AdvReac Severe severe Verified 11/15/22 22:07 Diarrhea, nausea metolazone AdvReac Severe ELECTROLYTE Verified 11/15/22 22:07 ISSUES bupropion AdvReac Intermediate NERVOUS Verified 11/15/22 22:07 REACTION cephalexin AdvReac Intermediate GI SYMPTOMS Verified 11/15/22 22:07 morphine AdvReac Intermediate NERVOUS Verified 11/15/22 22:07 REACTION TO IT nitrofurantoin AdvReac Intermediate Vomiting Verified 11/15/22 22:07 [From Macrobid] prochlorperazine AdvReac Intermediate NERVOUS Verified 11/15/22 22:07 REACTION tedizolid AdvReac Intermediate GI SYMPTOMS Verified 11/15/22 22:07 Past Med/Surg History Medical History Asthma Atherosclerosis of both lower extremities Chronic diastolic (congestive) heart failure Hospitalized March 2022 Follows w/[facility] (Dr. Otoole), EF 55-60% Chronic kidney disease stage 3b Chronic sinusitis Chronic urinary tract infection Chronic venous insufficiency COPD (chronic obstructive pulmonary disease) Depression GERD without esophagitis H/O concussion "a long time ago" History of anemia History of esophageal dilatation Hyperlipidemia per records Hypothyroidism Incisional hernia Abdominal (from multiple surgeries/feeding tube) Kidney stones Lumbar transverse process fracture Pt reports lower back detioriating - can't lie flat/sleep on a chair MRSA (methicillin resistant staph aureus) culture positive History of Left wrist Had 3 nasal swab and all negative (through [facility] per pt) Obesity Osteoporosis Pancreatic insufficiency chronic pancreatitis Peripheral neuropathy Port-A-Cath in place right side due to poor vascular access PUD (peptic ulcer disease) Had feeding tube for 28 years (has been removed for 11 years) Pulmonary hypertension mild per 07/[address] report PVC (premature ventricular contraction) Reactive hypoglycemia Secondary hyperparathyroidism Sepsis 05/2020 @ [facility], urosepsis 2/2 obstructing renal stone, S/P cysto/stent and ESWL Short bowel syndrome Sleep apnea complex sleep apnea, BIPAP *has not used it, can't get used to wearing a mask SOB (shortness of breath) on exertion Trouble swallowing hx egd with dilation / "narrowing" Urinary leakage Wrist injury Scar tissue surrounding remote wrist ORIF several years ago resulting in intermittent inflammation per pt Surgical History H/O shoulder surgery RT arthroscopy 05/28/2021: LMA#4 atraumatic x 1 + PNB. Anesthesia postop progress note: "Pt denies SOB at this time. Block is functioning well. Vital signs stable and appropriate. Oxygenating well considering block placement and her comorbidities. Plan to discharge home with IS." History of appendectomy History of cardiac cath 08/2019 ([facility]): essentially normal coronary arteries angiographically, + luminal irregularities. no stents History of cholecystectomy History of colonoscopy History of cystoscopy multiple History of esophagogastroduodenoscopy (EGD) History of gastrointestinal surgery multiple History of joint replacement Rt thumb History of knee replacement procedure of right knee History of open reduction and internal fixation (ORIF) procedure left wrist + manipulation (01/2018) and I&D (10/2019) History of partial gastrectomy History of prior ablation treatment Right LE in January 2020 and left LE 04/18/20 History of sinus surgery History of tonsillectomy and adenoidectomy History of total abdominal hysterectomy and bilateral salpingo-oophorectomy S/P right rotator cuff repair S/P ureteral stent placement Status post laser lithotripsy of ureteral calculus most recent litho nov 2021 04/29/2021: LMA#4 atraumatic x 1. [facility]. 03/01/2021: LMA#4 atraumatic x 1. [place]. 02/04/2021: LMA#4 atraumatic x 1. [facility]. 07/04/2020: LMA#4 atraumatic x 1. [facility]. No issues per anesthesia postop progress notes. Family History Mother Family history of diabetes mellitus Sister Family history of diabetes mellitus Family history of breast cancer Father Esophageal cancer Other Family history non-contributory No family history of adverse response to anesthesia Social History Smoking Status: Never smoker Second Hand Exposure: Yes ( A CHILD); Hx Alcohol Use: Yes Alcohol type: beer Preferred Language: Burmese Communication Ability: Effective Visual Impairment: No Limitations Medical Assisting Program Director Required: No Beliefs That Will Affect Care: None marital status: Single Current Living Situation: Alone Current Living Situation Comment: APARTMENT COMPLEX>FRIENDS ALL AROUND How many Children do You have: 0 Feels Safe at Home: Yes Assistive Devices: Glasses, Nebulizer and Walker Review of Systems A total of 10 systems reviewed and were otherwise negative Physical Exam Vital Signs Vital Signs - 24 hr 11/15/22 21:31 11/15/22 21:37 11/15/22 21:41 Temperature 36.5 C Temperature Source Oral Pulse Rate 60 61 Pulse Rate [Apical] 61 Pulse Rhythm Regular Respiratory Rate 18 16 Respiratory Effort / Characteristics Non-Labored Respiratory Depth Normal Respiratory Pattern Regular Blood Pressure 121/72 Blood Pressure [Right Arm] 121/72 Blood Pressure Mean 88 Blood Pressure Mean [Right Arm] 88 Pulse Oximetry 96 100 Oxygen Delivery Method Room Air Room Air Sepsis New/Unexplained Change in Mental Status N/A Sepsis Action Taken by Nursing No Action Required VITALS: Vitals are noted on the nurse's note and reviewed by myself. Vital signs stable. GENERAL: Pleasant elderly female following commands, in no acute distress, nondiaphoretic, well-developed well-nourished. SKIN: The skin was without rashes, erythema, or bruising. There is no tenting of the skin. Capillary reflex less than 2 seconds. HEAD: Normocephalic atraumatic. EARS: External auditory canals clear, EYES: Pupils equal round and reactive to light and accommodation. Conjunctivae without injection, sclerae without icterus. Extraocular movements intact. NOSE: Patent, turbinates without inflammation or discharge. MOUTH: Mucous membranes moist. Pharynx without erythema or exudate. Uvula midline. Airway patent. Tongue does not deviate. NECK: Supple without nuchal rigidity. No lymphadenopathy. No thyromegaly. Cervical spine is nontender. No JVD. HEART: Regular rate and rhythm LUNGS: Clear to auscultation bilaterally without wheezes, rales or rhonchi. No retractions or accessory muscle use. ABDOMEN: Positive bowel sounds x 4. Normal tympanic percussion. Soft, nontender, without masses or organomegaly. Quinonez sign negative. No guarding or rebound tenderness. No CVA tenderness MUSCULOSKELETAL: No muscle atrophy, erythema, noted. NEURO: Patient was alert and oriented to person place and time. Normal sensat ion to light and sharp touch. No focal neurological deficits. Course Administered Medications Potassium Chloride (K Hermilo / Wtr) 10 meq in 100 mls @ 100 mls/hr IV Q1H CATE; Protocol Stop: 11/16/22 00:59 Last Admin: 11/15/22 23:49 Dose: 100 mls/hr Documented By: GERHARD Discontinued Medications Diphenhydramine HCl (Diphenhydramine 50 Mg/Ml Vial) 25 mg IV NOW STA Stop: 11/15/22 21:52 Last Admin: 11/15/22 23:28 Dose: 25 mg Documented By: KATHERINE Meropenem 1,000 mg/ Syringe 20 mls @ 2 mls/min IV NOW STA; Protocol Stop: 11/15/22 21:59 Last Admin: 11/15/22 23:22 Dose: 2 mls/min Documented By: KATHERINE Potassium Chloride (Potassium Chloride 10 Meq Tabcr) 40 meq PO NOW STA Stop: 11/15/22 22:55 Last Admin: 11/15/22 23:22 Dose: 40 meq Documented By: KATHERINE Medical Decision Making Medical Records Attestation: I reviewed the patient's medical records. Home Medications Current Medication List: was personally reviewed by me Laboratory Data Attestation: I reviewed the patient's lab results. 11/15/22 21:55 11/15/22 21:55 Lab Results 11/15/22 11/15/22 11/15/22 Range/Units 21:55 21:55 21:55 WBC 6.33 (4.8-10.8) K/ul RBC 4.22 (4.20-5.40) M/uL Hgb 12.4 (12.0-16.0) g/dl Hct 36.5 L (37.0-47.0) % MCV 86.5 (80.0-100.0) fL MCH 29.4 (25.0-34.0) pg MCHC 34.0 (32.0-36.0) g/dL RDW Std Deviation 46.3 (36.4-46.3) fL RDW Coeff of David 14.6 H (11.5-14.5) % Plt Count 231 (130-400) K/uL MPV 10.1 (9.4-12.4) fL Immature Gran % (Auto) 0.9 % Neut % (Auto) 65.4 % Lymph % (Auto) 21.5 % Titus % (Auto) 10.3 % Eos % (Auto) 1.3 % Baso % (Auto) 0.6 % Neut # (Auto) 4.14 (1.40-6.50) K/uL Lymph # (Auto) 1.36 (1.2-3.4) K/uL Titus # (Auto) 0.65 H (0.11-0.59) K/uL Eos # (Auto) 0.08 (0-0.50) K/uL Baso # (Auto) 0.04 (0-0.2) K/uL Immature Gran # (Auto) 0.06 (0.01-0.20) K/uL Sodium 134 L (136-145) mmol/L Potassium 2.3 L* (3.5-5.1) mmol/L Chloride 91 L (98-107) mmol/L Carbon Dioxide 36 H (21-32) mmol/L Anion Gap 7 (3-11) BUN 48 H (6-23) mg/dl Creatinine 1.19 (0.6-1.2) mg/dl Est Cr Clr Drug Dosing 44.5 ml/min Est GFR ( Amer) 53.6 ml/min Est GFR (Non-Af Amer) 46.2 ml/min BUN/Creatinine Ratio 40.3 H (10-20) Glucose 129 H (70-99(Fasting)) mg/dl Calcium 9.7 (8.5-10.1) mg/dl Magnesium 2.2 (1.7-2.4) mg/dl Total Bilirubin 0.5 (0.2-1.0) mg/dl AST 26 (13-39) U/L ALT 21 (7-52) U/L Alkaline Phosphatase 84 (34-104) U/L Total Creatine Kinase 109 (26-192) U/L Troponin I High Sens 20.7 H (0-14) pg/ml Total Protein 6.7 (6.0-8.3) gm/dl Albumin 3.8 (3.4-5.0) gm/dl Globulin 2.9 (2.5-4.0) gm/dl Albumin/Globulin Ratio 1.3 (0.9-2) Procalcitonin (0-0.5) ng/ml TSH 1.583 (0.300-4.500) uIu/ml Urine Color Urine Appearance (Clear) Urine pH (4.5-7.5) Ur Specific [place] (1.000-1.030) Urine Protein (Negative) Urine Glucose (UA) (Negative) Urine Ketones (Negative) Urine Blood (Negative) Urine Nitrite (Negative) Urine Bilirubin (Negative) Urine Urobilinogen (Negative) Ur Leukocyte Esterase (Negative) Urine WBC (Auto) (0-5) /hpf Urine RBC (Auto) (0-4) /hpf U Hyaline Cast (Auto) (0-5) /lpf U Epithel Cells (Auto) (0-5) /lpf Urine Bacteria (Auto) (Negative) SARS-CoV-2 (PCR) (Negative) Influenza Type A (PCR) (Neg) Influenza Type B (PCR) (Neg) RSV (RT-PCR) (Neg) 11/15/22 11/15/22 11/15/22 Range/Units 21:55 21:55 22:05 WBC (4.8-10.8) K/ul RBC (4.20-5.40) M/uL Hgb (12.0-16.0) g/dl Hct (37.0-47.0) % MCV (80.0-100.0) fL MCH (25.0-34.0) pg MCHC (32.0-36.0) g/dL RDW Std Deviation (36.4-46.3) fL RDW Coeff of David (11.5-14.5) % Plt Count (130-400) K/uL MPV (9.4-12.4) fL Immature Gran % (Auto) % Neut % (Auto) % Lymph % (Auto) % Titus % (Auto) % Eos % (Auto) % Baso % (Auto) % Neut # (Auto) (1.40-6.50) K/uL Lymph # (Auto) (1.2-3.4) K/uL Titus # (Auto) (0.11-0.59) K/uL Eos # (Auto) (0-0.50) K/uL Baso # (Auto) (0-0.2) K/uL Immature Gran # (Auto) (0.01-0.20) K/uL Sodium (136-145) mmol/L Potassium (3.5-5.1) mmol/L Chloride (98-107) mmol/L Carbon Dioxide (21-32) mmol/L Anion Gap (3-11) BUN (6-23) mg/dl Creatinine (0.6-1.2) mg/dl Est Cr Clr Drug Dosing ml/min Est GFR ( Amer) ml/min Est GFR (Non-Af Amer) ml/min BUN/Creatinine Ratio (10-20) Glucose (70-99(Fasting)) mg/dl Calcium (8.5-10.1) mg/dl Magnesium (1.7-2.4) mg/dl Total Bilirubin (0.2-1.0) mg/dl AST (13-39) U/L ALT (7-52) U/L Alkaline Phosphatase (34-104) U/L Total Creatine Kinase (26-192) U/L Troponin I High Sens (0-14) pg/ml Total Protein (6.0-8.3) gm/dl Albumin (3.4-5.0) gm/dl Globulin (2.5-4.0) gm/dl Albumin/Globulin Ratio (0.9-2) Procalcitonin 0.05 (0-0.5) ng/ml TSH (0.300-4.500) uIu/ml Urine Color Yellow Urine Appearance Clear (Clear) Urine pH 7.5 (4.5-7.5) Ur Specific [place] 1.006 (1.000-1.030) Urine Protein Negative (Negative) Urine Glucose (UA) Negative (Negative) Urine Ketones Negative (Negative) Urine Blood Negative (Negative) Urine Nitrite Negative (Negative) Urine Bilirubin Negative (Negative) Urine Urobilinogen Negative (Negative) Ur Leukocyte Esterase 3+ H (Negative) Urine WBC (Auto) >30 H (0-5) /hpf Urine RBC (Auto) 0-4 (0-4) /hpf U Hyaline Cast (Auto) 1-5 (0-5) /lpf U Epithel Cells (Auto) 0-5 (0-5) /lpf Urine Bacteria (Auto) 4+ H (Negative) SARS-CoV-2 (PCR) NEGATIVE (Negative) Influenza Type A (PCR) Negative (Neg) Influenza Type B (PCR) Negative (Neg) RSV (RT-PCR) Negative (Neg) 11/15/22 Range/Units 23:05 WBC (4.8-10.8) K/ul RBC (4.20-5.40) M/uL Hgb (12.0-16.0) g/dl Hct (37.0-47.0) % MCV (80.0-100.0) fL MCH (25.0-34.0) pg MCHC (32.0-36.0) g/dL RDW Std Deviation (36.4-46.3) fL RDW Coeff of David (11.5-14.5) % Plt Count (130-400) K/uL MPV (9.4-12.4) fL Immature Gran % (Auto) % Neut % (Auto) % Lymph % (Auto) % Titus % (Auto) % Eos % (Auto) % Baso % (Auto) % Neut # (Auto) (1.40-6.50) K/uL Lymph # (Auto) (1.2-3.4) K/uL Titus # (Auto) (0.11-0.59) K/uL Eos # (Auto) (0-0.50) K/uL Baso # (Auto) (0-0.2) K/uL Immature Gran # (Auto) (0.01-0.20) K/uL Sodium (136-145) mmol/L Potassium (3.5-5.1) mmol/L Chloride (98-107) mmol/L Carbon Dioxide (21-32) mmol/L Anion Gap (3-11) BUN (6-23) mg/dl Creatinine (0.6-1.2) mg/dl Est Cr Clr Drug Dosing ml/min Est GFR ( Amer) ml/min Est GFR (Non-Af Amer) ml/min BUN/Creatinine Ratio (10-20) Glucose (70-99(Fasting)) mg/dl Calcium (8.5-10.1) mg/dl Magnesium (1.7-2.4) mg/dl Total Bilirubin (0.2-1.0) mg/dl AST (13-39) U/L ALT (7-52) U/L Alkaline Phosphatase (34-104) U/L Total Creatine Kinase (26-192) U/L Troponin I High Sens 19.8 H (0-14) pg/ml Total Protein (6.0-8.3) gm/dl Albumin (3.4-5.0) gm/dl Globulin (2.5-4.0) gm/dl Albumin/Globulin Ratio (0.9-2) Procalcitonin (0-0.5) ng/ml TSH (0.300-4.500) uIu/ml Urine Color Urine Appearance (Clear) Urine pH (4.5-7.5) Ur Specific [place] (1.000-1.030) Urine Protein (Negative) Urine Glucose (UA) (Negative) Urine Ketones (Negative) Urine Blood (Negative) Urine Nitrite (Negative) Urine Bilirubin (Negative) Urine Urobilinogen (Negative) Ur Leukocyte Esterase (Negative) Urine WBC (Auto) (0-5) /hpf Urine RBC (Auto) (0-4) /hpf U Hyaline Cast (Auto) (0-5) /lpf U Epithel Cells (Auto) (0-5) /lpf Urine Bacteria (Auto) (Negative) SARS-CoV-2 (PCR) (Negative) Influenza Type A (PCR) (Neg) Influenza Type B (PCR) (Neg) RSV (RT-PCR) (Neg) Imaging Data Attestation: I personally reviewed and interpreted this imaging study as follows: MDM Narrative Prior records/ancillary studies reviewed and summarized above. Nursing notes reviewed. Additional history obtained from EMS. The patient's history was concerning for weakness with frequent falls. Differential diagnosis: Etiologies such as ESBL infection again, metabolic, infection, hypo/hyperglycemia, electrolyte abnormalities, cardiac sources, intracerebral event, toxicologic, neurologic, as well as others were entertained. Physical examination: As above. ER treatment provided: IV Lock An order was placed for continuous cardiac monitoring. The monitor shows a rate of 60-100 with a sinus rhythm per my interpretation. IV fluids, Meropenem, K On reassessment the patient felt better. Diagnostics interpretation by me: ECG: Ordered for weakness EKG: Normal sinus, left axis deviation, left ventricular hypertrophy, rate of 61. EKG compared to prior EKG. Impression normal sinus rhythm with first- degree AV block left axis deviation left ventricular hypertrophy interpreted myself and unchanged from prior. I think arrhythmia is unlikely. EKG shows no interval abnormalities such as QT prolongation or WPW. There are no findings to suggest Brugada syndrome. Cardiac monitoring in the emergency department reveals no tachycardic or bradycardic dysrhythmia. Hypertrophic cardiomyopathy was considered but there are no clear historical elements pointing toward this. EKG is not suggestive. The QRS voltage is not extremely large The labs Independently Interpreted by myself revealed [] [address], [place] [address] / Director: Matthew Silva M.D. Clinical Laboratory Report Name: LUCASJOSHUA J Acct: [id number] Status: [facility] : 1950 [facility] Date: 07/30/22 Age: 72 Sex: F Dis Date: Loc: Laboratory Main [place] Spec: [id number] Collected: 07/30/22 Received: 07/30/[address]: Zeb Marvin, II, DO Source: Urine,Clean Catch OV Order: Ordered: Urine Culture Procedure Result Verified Site Urine Culture Final 08/01/22 Organism 1 Escherichia coli ESBL [place] Count >100,000 CFU/ml Sens Sensitivities to Follow ESBL E col RX M.I.C. --- --------- Amox/Clav S <=8/4 Ampicillin R >16 Amp/Sul S <=8/4 Cefazolin R >16 Cefepime R >16 Cefotaxime R >16 Ceftriaxone R >2 Ciprofloxacin R >2 Ertapenem S <=0.5 Gentamicin S <=4 Levofloxacin R >4 Meropenem S <=1 Nitrofurantoin S <=32 Tobramycin S <=4 Trimeth/Sulfa R >2/38 Pip/Tazo S <=16 S = SENSITIVE I = INTERMEDIATE R = RESISTANT Imaging studies: CT C SPINE: There is diffuse osseous demineralization. There is moderate multilevel degenerative disease. There is no acute osseous injury identified. There is a partially visualized tunneled right-sided central venous catheter. Radiologist: Royer Galeano MD CT HEAD: No acute findings. Moderate chronic sinus mucosal disease with near complete opacification of the right maxillary sinus and associated osseous remodeling. Radiologist: Royer Galeano MD Consultation: A consultation was placed with the hospitalist. The case was discussed and diagnostics were reviewed. The patient was evaluated in the ER for further treatment. Exam and history seem consistent with weakness, increasing falls, acute UTI with a history of ESBL,Low potassium and an elevated troponin.Labs and diagnostics were independently interpreted by myself. Patient started antibiotics immediately for concerns for UTI. Prior urine culture was reviewed. Potassium was replaced.She was reassessed multiple times. Medicine was consulted and the case was discussed. She will be admitted to the medical service. By the evaluation outlined above emergent etiologies such as intracerebral event, toxologic, neurologic, abnormalities blood glucose, metabolic, as well as others were deemed relatively unlikely. The pt informed about the findings as listed above. All questions were answered and pleased with the treatment. The chart was completed utilizing [employer] Speech voice recognition software. Grammatical errors, random word insertions, pronoun errors, and incomplete sentences are an occassional consequence of this system due to software limitations, ambient noise, and hardware issues. Any formal questions or concerns about the content, text, or information contained within the body of this dictation should be directly addressed to the physician oceanographer assistant for clarification. Impression & Plan Acute UTI, Head injury, Weakness, Fall, Hypokalemia, Elevated troponin Discharge Plan Visit Data Chief Complaint: Fall Stated Complaint: fall ED Provider: Boby Norton ED Midlevel Provider: Nallely Galeano Discharge Problem: Acute UTI, Head injury, Weakness, Fall, Hypokalemia, Elevated troponin Forms Stand Alone Forms: My [facility] Prescriptions Prescriptions: No Action colesevelam [WelChol] 625 mg tablet 625 mg PO TID Label Comments: before meals , morning , noon and night Rx Instructions: PER [facility]-TAKE 1250 MG BIDM. montelukast [Singulair] 10 mg tablet 10 mg PO HS Prilosec OTC 20 mg tablet,delayed release (DR/EC) 20 mg PO BID mecobalamin (vitamin B12) 1,000 mcg tablet,disintegrating 1,000 mcg PO QAM Rx Instructions: place tablet under tongue and allow to dissolve for at least30 secs before swallowing desipramine 50 mg tablet 50 mg PO BID Rx Instructions: PER [facility]--TAKE 25 MG TID, THEN 50 AT HS. pregabalin 100 mg capsule 100 mg PO TID Qty: 90 2RF duloxetine [Cymbalta] 20 mg capsule,delayed release(DR/EC) 20 mg PO HS Qty: 30 5RF calcium carbonate [Calcium 600] 600 mg calcium (1,500 mg) tablet 1,200 mg PO TID Qty: 180 5RF calcitriol 0.5 mcg capsule 0.5 mcg PO BID Qty: 60 5RF Trelegy Ellipta 100-62.5-25 mcg blister with device 1 inh inhalation QAM Qty: 60 5RF Rx Instructions: USE ONE INHALATION EVERY MORNING albuterol sulfate 90 mcg/actuation aerosol powdr breath activated 2 inh INH Q6H PRN (Reason: Shortness Of Breath Or Wheezing) Qty: 1 3RF lamotrigine 25 mg tablet 25 mg PO BID Qty: 60 3RF ipratropium-albuterol 0.5 mg-3 mg(2.5 mg base)/3 mL Solution For Nebulization 3 ml INHALATION Q4H PRN (Reason: Shortness Of Breath Or Wheezing) Creon 24,000-76,000 -120,000 unit Capsule,Delayed Release(Dr/Ec) 4 cap PO TID Label Comments: before meals potassium chloride 10 mEq capsule, extended release 10 meq PO TID torsemide 20 mg tablet 40 mg PO BID valacyclovir 500 mg tablet 500 mg PO DAILY ropinirole 0.5 mg tablet 0.5 mg PO HS escitalopram oxalate 20 mg tablet 20 mg PO QAM rosuvastatin 10 mg tablet 10 mg PO DAILY metolazone [Zaroxolyn] 2.5 mg Tablet 2.5 mg PO DAILY PRN (Reason: WT >199 LBS.) oxycodone-acetaminophen [Percocet] 5-325 mg Tablet 1 tab PO Q6H PRN (Reason: Pain) tamsulosin [Flomax] 0.4 mg Capsule 0.4 mg PO DAILY cholecalciferol (vitamin D3) [Vitamin D3] 25 mcg (1,000 unit) Capsule 50 mcg PO DAILY Centrum Silver Tablet 1 tab PO DAILY risperidone 2 mg Tablet 2 mg PO HS levothyroxine 88 mcg tablet 88 mcg PO QAM lorazepam 0.5 mg tablet 0.5 mg PO BID PRN (Reason: Anxiety) Referrals Referrals: Frederick Reynaga DO [Primary Care Provider] -
[2022-11-15] MEDS ORDERED: MEROPENEM 1,000 MG in SYRINGE 0 ML IV STA (21:50)
[2022-11-15] MEDS ORDERED: diphenhydrAMINE 50 MG/ML VIAL IV STA (21:51)
--- NOTE | 2022-11-15 22:07 | Emergency Department Note ---
ED Visit Note I was consulted by the Advanced Practice Provide, Nallely Galeano PA-C. I saw the patient personally and performed a substantive portion of the visit. This includes aspects of the HPI, MDM, diagnostic interpretations, and disposition/plan. .
[2022-11-15 22:23] LABS: Appearance Urine Clear (Clear); Bacteria Urine Automated 4+ (Negative); Bilirubin Urine Negative (Negative); Blood Urine Negative (Negative); Color Urine Yellow; Epithelial Cell Urine Auto 0-5 /lpf (0-5); Glucose Urine UA Negative (Negative); Ketones Urine Negative (Negative); Leukocyte Esterase Urine 3+ (Negative); Nitrite Urine Negative (Negative); Protein Urine Negative (Negative); RBC Urine Automated 0-4 /hpf (0-4); Specific Gravity Urine 1.006 (1.000-1.030); Urobilinogen Urine Negative (Negative); WBC Urine Automated >30 /hpf (0-5); pH Urine 7.5 (4.5-7.5)
[2022-11-15 22:36] LABS: Basophils # (auto) 0.04 K/uL (0-0.2); Basophils % (auto) 0.6 %; Eosinophils # (auto) 0.08 K/uL (0-0.50); Eosinophils % (auto) 1.3 %; Hematocrit (blood only) 36.5 % (37.0-47.0); Hemoglobin 12.4 g/dl (12.0-16.0); Immature Granulocytes # (auto) 0.06 K/uL (0.01-0.20); Immature Granulocytes % (auto) 0.9 %; Lymphocytes # (auto) 1.36 K/uL (1.2-3.4); Lymphocytes % (auto) 21.5 %; Mean Corpuscular Hemoglobin 29.4 pg (25.0-34.0); Mean Corpuscular Volume 86.5 fL (80.0-100.0); Mean Platelet Volume 10.1 fL (9.4-12.4); Monocytes # (auto) 0.65 K/uL (0.11-0.59); Monocytes % (auto) 10.3 %; Neutrophils # (auto) 4.14 K/uL (1.40-6.50); Neutrophils % (auto) 65.4 %; Platelet Count 231 K/uL (130-400); RDW Coefficient of Variation 14.6 % (11.5-14.5); RDW Standard Deviation 46.3 fL (36.4-46.3); Red Blood Count 4.22 M/uL (4.20-5.40); White Blood Count 6.33 K/ul (4.8-10.8)
[2022-11-15] MEDS ORDERED: POTASSIUM CHLORIDE 10 MEQ TABCR PO STA (22:54)
[2022-11-15 22:55] LABS: Albumin Globulin Ratio 1.3 (0.9-2); Albumin Level 3.8 gm/dl (3.4-5.0); BUN Creatinine Ratio 40.3 (10-20); Bilirubin,Total 0.5 mg/dl (0.2-1.0); Calcium 9.7 mg/dl (8.5-10.1); Creatinine Clr Calc Pharmacy 44.5 ml/min; Est GFR (African American) 53.6 ml/min; Est GFR (Non-African American) 46.2 ml/min; Globulin 2.9 gm/dl (2.5-4.0); Magnesium 2.2 mg/dl (1.7-2.4); Potassium 2.3 mmol/L (3.5-5.1); Total Protein 6.7 gm/dl (6.0-8.3); Troponin I High Sensitivity 20.7 pg/ml (0-14)
[2022-11-15 23:09] LABS: Influenza A virus by PCR Negative (Neg); Influenza B virus by PCR Negative (Neg); RSV by PCR Negative (Neg); SARS CoV2 RNA(COVID-19) Ceph NEGATIVE (Negative)
[2022-11-15] MEDS: POTASSIUM CHLORIDE / WTR 10 MEQ/100 ML PLCT IV SCH (23:49)
[2022-11-15] MEDS ORDERED: POTASSIUM CHLORIDE PWD 20 MEQ PACK PO STA (23:51)
--- NOTE | 2022-11-16 00:08 | History & Physical Report ---
Date of Service November 16, 2022 Assessment & Plan (1) Weakness: Plan: Multifactorial Complicated UTI recurrent illness, no sepsis for now Rule out orthostasis from possible clinical dehydration given hypokalemia in the setting of diuretic Rx Multiple neuropsychotropic medications may be contributory to falling chronic diastolic heart failure, patient on the dry side LARRY, pulmonary hypertension, asthma -pulmonary status, lung status at baseline history of gastric bypass hx ankylosing spondylitis mood/ anxiety disorder, at baseline Peripheral neuropathy, Lamictal recently added to patient's regimen by her neurologist Ambulatory dysfunction Medical telemetry CS, Ertapenem given history ESBL organism Check orthostatic vitals Replace potassium, hold home diuretics for now until patient euvolemic Review neuropsychotropic medications, consider holding new Lamictal Rx if patient still dizzy following above interventions. PT OT eval DVT prophylaxis. Lovenox subcu Full code Text document was generated using [employer] recognition software. It may contain grammatical or spelling errors. Kindly contact undersigned for clarification of any documentation item in question. History of Present Illness Chief Complaint: Dizziness, frequent falls Primary Care Provider: Frederick Reynaga DO History obtained from patient and records. Medical history significant for chronic diastolic heart failure (EF 55 to 60%, TTE 2021), LARRY, pulmonary hypertension, asthma, history of gastric bypass, hyperparathyroidism as per records, ankylosing spondylitis as per records, recurrent UTIs (ESBL E. coli infection), urolithiasis, history pancreatic insufficiency/malabsorption as per records, mood/anxiety disorder, chronic pain/neuropathy. Last confinement May 2022 for complicated UTI. Pansensitive E. coli on urine CS. Patient discharged on Augmentin course. Few days history of increasing weakness and dizziness described as lightheadedness. No headache. Patient falling at home from weakness. No syncope, no chest pain, no SOB. Appetite okay. Denies abdominal/flank pain, diarrhea, dysuria, hematuria, fever, chills. Meropenem administered at the ER for possible UTI. 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 Allergies Allergy/AdvReac Type Severity Reaction Status Date / Time bethanechol Allergy Intermediate RASH, Verified 11/15/22 22:07 "FEELS FUNNY" Cephalosporins Allergy Intermediate RASH, Verified 11/15/22 22:07 DIARRHEA ertapenem Allergy Intermediate RASH Verified 11/15/22 22:07 levofloxacin Allergy Intermediate RASH,TURNED Verified 11/15/22 22:07 RED Sulfa (Sulfonamide Allergy Intermediate Generalized Verified 11/15/22 22:07 Antibiotics) Rash clindamycin Allergy Unknown Unknown Verified 11/15/22 22:07 dipyridamole Allergy Unknown UNKNOWN Verified 11/15/22 22:07 droperidol Allergy Unknown Unknown Verified 11/15/22 22:07 promethazine Allergy Unknown UNKNOWN Verified 11/15/22 22:07 tobramycin Allergy Unknown UNKNOWN Verified 11/15/22 22:07 aspirin AdvReac Severe BLEEDING Verified 11/15/22 22:07 doxycycline AdvReac Severe severe Verified 11/15/22 22:07 Diarrhea, nausea metolazone AdvReac Severe ELECTROLYTE Verified 11/15/22 22:07 ISSUES bupropion AdvReac Intermediate NERVOUS Verified 11/15/22 22:07 REACTION cephalexin AdvReac Intermediate GI SYMPTOMS Verified 11/15/22 22:07 morphine AdvReac Intermediate NERVOUS Verified 11/15/22 22:07 REACTION TO IT nitrofurantoin AdvReac Intermediate Vomiting Verified 11/15/22 22:07 [From Macrobid] prochlorperazine AdvReac Intermediate NERVOUS Verified 11/15/22 22:07 REACTION tedizolid AdvReac Intermediate GI SYMPTOMS Verified 11/15/22 22:07 Home Medications Medication Instructions Recorded Confirmed Type colesevelam 625 mg tablet (WelChol) 625 mg PO TID 06/17/18 11/15/22 History montelukast 10 mg tablet 10 mg PO HS 06/17/18 11/15/22 History (Singulair) ipratropium 0.5 mg-albuterol 3 mg 3 ml inhalation Q4H PRN Shortness 05/05/19 11/15/22 History (2.5 mg base)/3 mL nebulization Of Breath Or Wheezing soln dxgqng-rzktwumn-ltqjgma 4 cap PO TID 05/05/19 11/15/22 History 24,000-76,000-120,000 unit capsule,delayed rel (Creon) omeprazole magnesium 20 mg 20 mg PO BID 05/17/19 11/15/22 History tablet,delayed release (Prilosec OTC) mecobalamin (vitamin B12) 1,000 1,000 mcg PO QAM 01/21/21 11/15/22 History mcg disintegrating tablet,sublingual risperidone 2 mg tablet 2 mg PO HS 02/27/21 11/15/22 History potassium chloride 10 mEq 10 meq PO TID 12/04/21 11/15/22 History capsule,extended release desipramine 50 mg tablet 50 mg PO BID 01/23/22 11/15/22 History levothyroxine 88 mcg tablet 88 mcg PO QAM 05/19/22 11/15/22 History calcitriol 0.5 mcg capsule 0.5 mcg PO BID #60 caps 07/02/22 11/15/22 Rx calcium carbonate 600 mg calcium 1,200 mg PO TID #180 tabs 07/02/22 11/15/22 Rx (1,500 mg) tablet (Calcium) albuterol sulfate 90 mcg/actuation 2 inh inhalation Q6H PRN Shortness 07/31/22 11/15/22 Rx breath activated powder inhaler Of Breath Or Wheezing #1 ea fluticasone fur. 100 mcg-umeclid 1 inh inhalation QAM #60 ea 07/31/22 11/15/22 Rx 62.5 mcg-vilant 25 mcg inhalat.powder (Trelegy Ellipta) pregabalin 100 mg capsule 100 mg PO TID #90 caps 10/01/22 11/15/22 Rx duloxetine 20 mg capsule,delayed 20 mg PO HS #30 caps 10/29/22 11/15/22 Rx release (Cymbalta) lamotrigine 25 mg tablet 25 mg PO BID #60 tabs 11/06/22 11/15/22 Rx lorazepam 0.5 mg tablet 0.5 mg PO BID PRN Anxiety 11/06/22 11/15/22 History cholecalciferol (vitamin D3) 25 50 mcg PO DAILY 11/15/22 11/15/22 History mcg (1,000 unit) capsule (Vitamin D3) escitalopram oxalate 20 mg tablet 20 mg PO QAM 11/15/22 11/15/22 History metolazone 2.5 mg tablet 2.5 mg PO DAILY PRN WT >199 LBS. 11/15/22 11/15/22 History ylxqxysdwwzg-dbueqroj-afrxak tablet 1 tab PO DAILY 11/15/22 11/15/22 History oxycodone-acetaminophen 5 mg-325 1 tab PO Q6H PRN Pain 11/15/22 11/15/22 History mg tablet (Percocet) ropinirole 0.5 mg tablet 0.5 mg PO HS 11/15/22 11/15/22 History rosuvastatin 10 mg tablet 10 mg PO DAILY 11/15/22 11/15/22 History tamsulosin 0.4 mg capsule (Flomax) 0.4 mg PO DAILY 11/15/22 11/15/22 History torsemide 20 mg tablet 40 mg PO BID 11/15/22 11/15/22 History valacyclovir 500 mg tablet 500 mg PO DAILY 11/15/22 11/15/22 History Past Med/Surg History Medical History Asthma Atherosclerosis of both lower extremities Chronic diastolic (congestive) heart failure Hospitalized March 2022 Follows w/[facility] (Dr. Otoole), EF 55-60% Chronic kidney disease stage 3b Chronic sinusitis Chronic urinary tract infection Chronic venous insufficiency COPD (chronic obstructive pulmonary disease) Depression GERD without esophagitis H/O concussion "a long time ago" History of anemia History of esophageal dilatation Hyperlipidemia per records Hypothyroidism Incisional hernia Abdominal (from multiple surgeries/feeding tube) Kidney stones Lumbar transverse process fracture Pt reports lower back detioriating - can't lie flat/sleep on a chair MRSA (methicillin resistant staph aureus) culture positive History of Left wrist Had 3 nasal swab and all negative (through [facility] per pt) Obesity Osteoporosis Pancreatic insufficiency chronic pancreatitis Peripheral neuropathy Port-A-Cath in place right side due to poor vascular access PUD (peptic ulcer disease) Had feeding tube for 28 years (has been removed for 11 years) Pulmonary hypertension mild per 07/[address] report PVC (premature ventricular contraction) Reactive hypoglycemia Secondary hyperparathyroidism Sepsis 05/2020 @ [facility], urosepsis 2/2 obstructing renal stone, S/P cysto/stent and ESWL Short bowel syndrome Sleep apnea complex sleep apnea, BIPAP *has not used it, can't get used to wearing a mask SOB (shortness of breath) on exertion Trouble swallowing hx egd with dilation / "narrowing" Urinary leakage Wrist injury Scar tissue surrounding remote wrist ORIF several years ago resulting in intermittent inflammation per pt Surgical History H/O shoulder surgery RT arthroscopy 05/28/2021: LMA#4 atraumatic x 1 + PNB. Anesthesia postop progress note: "Pt denies SOB at this time. Block is functioning well. Vital signs stable and appropriate. Oxygenating well considering block placement and her comorbidities. Plan to discharge home with IS." History of appendectomy History of cardiac cath 08/2019 ([facility]): essentially normal coronary arteries angiographically, + luminal irregularities. no stents History of cholecystectomy History of colonoscopy History of cystoscopy multiple History of esophagogastroduodenoscopy (EGD) History of gastrointestinal surgery multiple History of joint replacement Rt thumb History of knee replacement procedure of right knee History of open reduction and internal fixation (ORIF) procedure left wrist + manipulation (01/2018) and I&D (10/2019) History of partial gastrectomy History of prior ablation treatment Right LE in January 2020 and left LE 04/18/20 History of sinus surgery History of tonsillectomy and adenoidectomy History of total abdominal hysterectomy and bilateral salpingo-oophorectomy S/P right rotator cuff repair S/P ureteral stent placement Status post laser lithotripsy of ureteral calculus most recent litho nov 2021 04/29/2021: LMA#4 atraumatic x 1. [facility]. 03/01/2021: LMA#4 atraumatic x 1. [facility]. 02/04/2021: LMA#4 atraumatic x 1. [facility]. 07/04/2020: LMA#4 atraumatic x 1. [facility]. No issues per anesthesia postop progress notes. Family History Mother Family history of diabetes mellitus Sister Family history of diabetes mellitus Family history of breast cancer Father Esophageal cancer Other Family history non-contributory No family history of adverse response to anesthesia Social History Smoking Status: Never smoker Second Hand Exposure: Yes ( A CHILD); Hx Alcohol Use: No Hx Substance Use: No Preferred Language: Yi Communication Ability: Effective Visual Impairment: No Limitations Brick Setter Required: No Beliefs That Will Affect Care: None marital status: Single Current Living Situation: Alone Current Living Situation Comment: APARTMENT COMPLEX>FRIENDS ALL AROUND How many Children do You have: 0 Other Information That Helps Us Care for You: No Feels Safe at Home: Yes Safety Concerns: Feels Safe At This Time Assistive Devices: Denture - Upper Review of Systems Review of Systems: As per HPI, all other systems reviewed and negative Physical Exam Physical Exam: GENERAL: Comfortable, slightly anxious, obese, no respiratory distress SKIN: Normal color, warm HEENT: Bespectacled, pink palpebral conjunctivae, no ptosis, dry buccal mucosa NECK : Supple, short, no tenderness CHEST : Decreased breath sounds, no tenderness HEART : RRR, systolic murmur ABDOMEN: Some distention, nontender EXTREMITIES : Bilateral LE swelling, no LE tenderness NEUROLOGIC : Coherent, no facial asymmetry, no other gross focality Results & Data Results & Data ([facility]) Vital Signs (Past 12 Hours) Vital Signs Temp Pulse Pulse Resp BP BP Pulse Ox 11/15/22 21:41 61 121/72 11/15/22 21:37 61 16 100 11/15/22 21:31 36.5 C 60 18 121/72 96 O2 Del Method 11/15/22 21:41 11/15/22 21:37 Room Air 11/15/22 21:31 Room Air Laboratory Results Laboratory Results WBC 6.33 K/ul (4.8-10.8) 11/15/22 21:55 RBC 4.22 M/uL (4.20-5.40) 11/15/22 21:55 Hgb 12.4 g/dl (12.0-16.0) 11/15/22 21:55 Hct 36.5 % (37.0-47.0) L 11/15/22 21:55 MCV 86.5 fL (80.0-100.0) 11/15/22 21:55 MCH 29.4 pg (25.0-34.0) 11/15/22 21:55 MCHC 34.0 g/dL (32.0-36.0) 11/15/22 21:55 RDW Std Deviation 46.3 fL (36.4-46.3) 11/15/22 21:55 RDW Coeff of David 14.6 % (11.5-14.5) H 11/15/22 21:55 Plt Count 231 K/uL (130-400) 11/15/22 21:55 MPV 10.1 fL (9.4-12.4) 11/15/22 21:55 Immature Gran % (Auto) 0.9 % 11/15/22 21: Neut % (Auto) 65.4 % 11/15/22 21:55 Lymph % (Auto) 21.5 % 11/15/22 21:55 [place] % (Auto) 10.3 % 11/15/22 21:55 Eos % (Auto) 1.3 % 11/15/22 21:55 Baso % (Auto) 0.6 % 11/15/22 21: Neut # (Auto) 4.14 K/uL (1.40-6.50) 11/15/22 21: Lymph # (Auto) 1.36 K/uL (1.2-3.4) 11/15/22 21:55 [place] # (Auto) 0.65 K/uL (0.11-0.59) H 11/15/22 21:55 Eos # (Auto) 0.08 K/uL (0-0.50) 11/15/22 21: Baso # (Auto) 0.04 K/uL (0-0.2) 11/15/22 21: Immature Gran # (Auto) 0.06 K/uL (0.01-0.20) 11/15/22 21:55 Sodium 134 mmol/L (136-145) L 11/15/22 21: Potassium 2.3 mmol/L (3.5-5.1) L* 11/15/22 21: Chloride 91 mmol/L (98-107) L 11/15/22 21:55 Carbon Dioxide 36 mmol/L (21-32) H 11/15/22 21:55 Anion Gap 7 (3-11) 11/15/22 21: BUN 48 mg/dl (6-23) H 11/15/22 21:55 Creatinine 1.19 mg/dl (0.6-1.2) 11/15/22 21: Est Cr Clr Drug Dosing 44.5 ml/min 11/15/22 21:55 Est GFR ( Amer) 53.6 ml/min 11/15/22 21:55 Est GFR (Non-Af Amer) 46.2 ml/min 11/15/22 21:55 BUN/Creatinine Ratio 40.3 (10-20) H 11/15/22 21:55 Glucose 129 mg/dl (70-99(Fasting)) H 11/15/22 21:55 Calcium 9.7 mg/dl (8.5-10.1) 11/15/22 21:55 Magnesium 2.2 mg/dl (1.7-2.4) 11/15/22 21:55 Total Bilirubin 0.5 mg/dl (0.2-1.0) 11/15/22 21:55 AST 26 U/L (13-39) 11/15/22 21:55 ALT 21 U/L (7-52) 11/15/22 21:55 Alkaline Phosphatase 84 U/L (34-104) 11/15/22 21:55 Total Creatine Kinase 109 U/L (26-192) 11/15/22 21:55 Troponin I High Sens 19.8 pg/ml (0-14) H 11/15/22 23:05 Total Protein 6.7 gm/dl (6.0-8.3) 11/15/22 21:55 Albumin 3.8 gm/dl (3.4-5.0) 11/15/22 21:55 Globulin 2.9 gm/dl (2.5-4.0) 11/15/22 21:55 Albumin/Globulin Ratio 1.3 (0.9-2) 11/15/22 21:55 Procalcitonin 0.05 ng/ml (0-0.5) 11/15/22 21:55 TSH 1.583 uIu/ml (0.300-4.500) 11/15/22 21:55 Urine Color Yellow 11/15/22 22:05 Urine Appearance Clear (Clear) 11/15/22 22:05 Urine pH 7.5 (4.5-7.5) 11/15/22 22:05 Ur Specific Ignacio 1.006 (1.000-1.030) 11/15/22 22:05 Urine Protein Negative (Negative) 11/15/22 22:05 Urine Glucose (UA) Negative (Negative) 11/15/22 22:05 Urine Ketones Negative (Negative) 11/15/22 22:05 Urine Blood Negative (Negative) 11/15/22 22:05 Urine Nitrite Negative (Negative) 11/15/22 22:05 Urine Bilirubin Negative (Negative) 11/15/22 22:05 Urine Urobilinogen Negative (Negative) 11/15/22 22:05 Ur Leukocyte Esterase 3+ (Negative) H 11/15/22 22:05 Urine WBC (Auto) >30 /hpf (0-5) H 11/15/22 22:05 Urine RBC (Auto) 0-4 /hpf (0-4) 11/15/22 22:05 U Hyaline Cast (Auto) 1-5 /lpf (0-5) 11/15/22 22:05 U Epithel Cells (Auto) 0-5 /lpf (0-5) 11/15/22 22:05 Urine Bacteria (Auto) 4+ (Negative) H 11/15/22 22:05 SARS-CoV-2 (PCR) NEGATIVE (Negative) 11/15/22 21:55 Influenza Type A (PCR) Negative (Neg) 11/15/22 21:55 Influenza Type B (PCR) Negative (Neg) 11/15/22 21:55 RSV (RT-PCR) Negative (Neg) 11/15/22 21:[address] head initial read: No acute findings. Moderate chronic sinus mucosal disease with near complete opacification of the right maxillary sinus and associated osseous remodeling. CT cervical spine initial read: There is diffuse osseous demineralization. There is moderate multilevel degenerative disease. There is no acute osseous injury identified. There is a partially visualized tunneled right-sided central venous catheter Chest x-ray as per interpretation cardiomegaly, chronic interstitial changes EKG as per my interpretation : Rate 60, NSR, LAD, LAFB, LVH, T wave abnormality septal leads
[2022-11-16] MEDS: POTASSIUM CHLORIDE / WTR 10 MEQ/100 ML PLCT IV SCH (00:47)
[2022-11-16] MEDS ORDERED: POTASSIUM CHLORIDE CRTAB 20 MEQ TABCR PO STA (01:16)
[2022-11-16] MEDS ORDERED: ALBUMIN 25% 100 mL 25 GM/100 ML VIAL IV STA (01:19)
[2022-11-16] MEDS ORDERED: ALBUT/IPRATROP 3MG/0.5MG NEB 3 ML VIAL INH PRN (02:16)
[2022-11-16] MEDS ORDERED: LORazepam 0.5 MG TAB PO PRN (02:16)
[2022-11-16] MEDS ORDERED: ONDANSETRON INJ 2 MG/ML 2 ML VIAL IV PRN (02:16)
[2022-11-16] MEDS ORDERED: HEPARIN 100 UNIT/ML 5ML FLUSH FLUSH PRN (02:41)
[2022-11-16] MEDS: lamoTRIgine 25 MG TAB PO SCH ×3 (03:33→19:58)
[2022-11-16] MEDS: DESIPRAMINE HCL 50 MG TAB PO SCH ×3 (03:33→19:57)
[2022-11-16] MEDS: LEVOTHYROXINE SODIUM 88 MCG TABLET PO SCH (05:46)
[2022-11-16] MEDS: ERTAPENEM SODIUM 1,000 MG in SYRINGE 0 ML IV SCH (05:49)
[2022-11-16] MEDS: oxyCODONE/ACETAMINOPHEN 5mg/325mg TAB PO PRN ×2 (06:01→18:09)
[2022-11-16 06:17] LABS: Basophils # (auto) 0.04 K/uL (0-0.2); Basophils % (auto) 0.6 %; Eosinophils # (auto) 0.07 K/uL (0-0.50); Eosinophils % (auto) 1.1 %; Hematocrit (blood only) 34.3 % (37.0-47.0); Hemoglobin 11.7 g/dl (12.0-16.0); Immature Granulocytes # (auto) 0.03 K/uL (0.01-0.20); Immature Granulocytes % (auto) 0.5 %; Lymphocytes # (auto) 1.24 K/uL (1.2-3.4); Lymphocytes % (auto) 18.9 %; Mean Corpuscular Hemoglobin 29.5 pg (25.0-34.0); Mean Corpuscular Hgb Conc 34.1 g/dL (32.0-36.0); Mean Corpuscular Volume 86.6 fL (80.0-100.0); Monocytes # (auto) 0.61 K/uL (0.11-0.59); Monocytes % (auto) 9.3 %; Neutrophils # (auto) 4.58 K/uL (1.40-6.50); Neutrophils % (auto) 69.6 %; Platelet Count 220 K/uL (130-400); RDW Coefficient of Variation 14.6 % (11.5-14.5); RDW Standard Deviation 46.6 fL (36.4-46.3); Red Blood Count 3.96 M/uL (4.20-5.40); White Blood Count 6.57 K/ul (4.8-10.8)
[2022-11-16 06:34] LABS: BUN Creatinine Ratio 40.6 (10-20); Calcium 9.1 mg/dl (8.5-10.1); Creatinine Clr Calc Pharmacy 51.4 ml/min; Est GFR (African American) 65.3 ml/min; Est GFR (Non-African American) 56.4 ml/min; Potassium 3.4 mmol/L (3.5-5.1)
--- NOTE | 2022-11-16 06:55 | XRay Report ---
XR chest 1V portable HISTORY: weakness COMPARISON: Chest 06/02/2022. FINDINGS: No pneumothorax. No pleural effusions. There are low lung volumes with mild elevation of th e right hemidiaphragm, unchanged. Epigastric surgical clips are again noted. There is mild enlargemen t of the cardiac silhouette. A right jugular Port-A-Cath terminates at the distal SVC. Progressive in terstitial thickening within the mid to lower lung zones. IMPRESSION: Progressive interstitial thickening within the mid to lower lung zones which may be chronic. Stable m ild cardiomegaly. ACT 112: Negative or not required by law. Electronically signed by: Noel Crenshaw M.D. 11/16/2022 6:53 AM
--- NOTE | 2022-11-16 07:47 | CT Scan Report ---
HEAD CT NONCONTRAST CT DOSE: HISTORY: fall, [place] TECHNIQUE: Multiaxial CT images of the head were performed without the use of intravenous contrast. A utomated exposure control was utilized for this study. A dose lowering technique was utilized adheri ng to the principles of ALARA. Comparison: Head CT 04/20/2020. Findings: Partial opacification of the right maxillary sinus. The calvarium and skull base are intact . The ventricles and sulci are within normal limits. There is no mass, hematoma, midline shift, or ac curyung infarct. Impression: No acute intracranial abnormality. ACT 112: Negative or not required by law. Electronically signed by: Noel Crenshaw M.D. 11/16/2022 7:46 AM
--- NOTE | 2022-11-16 08:02 | CT Scan Report ---
CERVICAL SPINE CT CT DOSE: 867.47 mGy.cm HISTORY: Fall. Head injury. TECHNIQUE: Multiaxial CT images of the cervical spine were performed and reformatted in the sagittal and coronal plane without the use of contrast. A dose lowering technique was utilized adhering to th e principles of ALARA. COMPARISON: Cervical spine CT 12/09/2017. FINDINGS: No fractures. No subluxation. Prevertebral soft tissues and the C1-C2 interval are intact. No pneumothorax. A right-sided central venous catheter is partially visualized. IMPRESSION: No fractures within the cervical spine. ACT 112: Negative or not required by law. Electronically signed by: Noel Crenshaw M.D. 11/16/2022 8:00 AM
[2022-11-16] MEDS: UMECLIDINIUM/VILANTEROL 62.5/25MCG 7 PUFFS/INHALER INH SCH (08:09)
[2022-11-16] MEDS: CEROVITE ADV FORMULA TAB PO SCH (08:09)
[2022-11-16] MEDS: WELCHOL~ORDER AWAITING ACTION SCH ×2 (08:09→17:23)
[2022-11-16] MEDS: TAMSULOSIN HCL 0.4 MG CAP PO SCH (08:09)
[2022-11-16] MEDS: PANTOprazole 40 MG TAB PO SCH ×2 (08:10→19:59)
[2022-11-16] MEDS: CYANOCOBALAMIN (B-12) 500 MCG TABLET PO SCH (08:10)
[2022-11-16] MEDS: ESCITALOPRAM OXALATE 20 MG TAB PO SCH (08:10)
[2022-11-16] MEDS: FLUTICASONE FUROATE 100MCG 14 PUFFS/INHALER INH SCH (08:10)
[2022-11-16] MEDS: POTASSIUM CHLORIDE 10 MEQ TABCR PO SCH ×3 (08:10→19:58)
[2022-11-16] MEDS: ROSUVASTATIN CALCIUM 10 MG TAB PO SCH (08:10)
[2022-11-16] MEDS: ENOXAPARIN INJ 40 MG/0.4 ML SYR SQ SCH (08:11)
[2022-11-16] MEDS: PREGABALIN 100 MG CAP PO SCH ×3 (08:28→20:01)
[2022-11-16] MEDS ORDERED: NON-FORMULARY MEDICATION (Fluticasone-Umeclidin-Vilanter [Trelegy Ellipta] 100-62.5-25 mcg INH SCH (09:00)
[2022-11-16] MEDS: PANCREAZE (LIPASE 10,500U) CAP PO SCH (17:23)
--- NOTE | 2022-11-16 17:30 | Communication Note ---
Date of Service: November 16, 2022 Patient was seen and evaluated for follow-up of weakness. Lying in bed in no acute distress. CT head showed no acute intracranial abnormality. Cervical CT showed no fractures within the cervical spine. UA positive for leukocyte and bacteria. Currently on IV ertapenem. will follow urine culture. continue PT/OT eval. fall precaution. Continue monitor closely. MD Jeniffer
[2022-11-16] MEDS: MONTELUKAST SODIUM 10 MG TABLET PO SCH (19:57)
[2022-11-16] MEDS: risperiDONE 2 MG TABLET PO SCH (19:57)
[2022-11-16] MEDS: rOPINIRole HCL 0.25 MG TABLET PO SCH (19:57)
[2022-11-16] MEDS: DULoxetine HCL 20 MG CAP PO SCH (19:57)
[2022-11-17] MEDS: WELCHOL~ORDER AWAITING ACTION SCH ×3 (00:16→16:29)
--- NOTE | 2022-11-17 05:52 | Electrocardiogram Report ---
Test Reason : Blood Pressure : / mmHG Vent. Rate : 061 BPM Atrial Rate : 061 BPM P-R Int : 238 ms QRS Dur : 126 ms QT Int : 386 ms P-R-T Axes : 067 -31 095 degrees QTc Int : 388 ms Sinus rhythm with 1st degree A-V block Left axis deviation Left ventricular hypertrophy with QRS widening and repolarization abnormality Abnormal ECG When compared with ECG of 07-MAR-2022 04:37, Inverted T waves have replaced nonspecific T wave abnormality in Lateral leads Confirmed by Nicho Lombardi ([id number]) on 11/17/2022 5:51:41 AM Referred By: REFERRED SELF Confirmed By:Nicho Lombardi
[2022-11-17] MEDS: ERTAPENEM SODIUM 1,000 MG in SYRINGE 0 ML IV SCH (06:08)
[2022-11-17] MEDS: LEVOTHYROXINE SODIUM 88 MCG TABLET PO SCH (06:08)
[2022-11-17] MEDS: HYDROCORTISONE 2.5% CR 30 GM TUBE EXT PRN ×2 (09:00→21:14)
[2022-11-17] MEDS: ESCITALOPRAM OXALATE 20 MG TAB PO SCH (09:33)
[2022-11-17] MEDS: lamoTRIgine 25 MG TAB PO SCH ×2 (09:33→21:12)
[2022-11-17] MEDS: ROSUVASTATIN CALCIUM 10 MG TAB PO SCH (09:33)
[2022-11-17] MEDS: POTASSIUM CHLORIDE 10 MEQ TABCR PO SCH ×3 (09:33→21:11)
[2022-11-17] MEDS: CEROVITE ADV FORMULA TAB PO SCH (09:33)
[2022-11-17] MEDS: TAMSULOSIN HCL 0.4 MG CAP PO SCH (09:33)
[2022-11-17] MEDS: CYANOCOBALAMIN (B-12) 500 MCG TABLET PO SCH (09:33)
[2022-11-17] MEDS: DESIPRAMINE HCL 50 MG TAB PO SCH ×2 (09:33→21:12)
[2022-11-17] MEDS: PANCREAZE (LIPASE 10,500U) CAP PO SCH ×3 (09:33→16:31)
[2022-11-17] MEDS: PANTOprazole 40 MG TAB PO SCH ×2 (09:33→21:13)
[2022-11-17] MEDS: ENOXAPARIN INJ 40 MG/0.4 ML SYR SQ SCH (09:34)
[2022-11-17] MEDS: UMECLIDINIUM/VILANTEROL 62.5/25MCG 7 PUFFS/INHALER INH SCH (09:34)
[2022-11-17] MEDS: FLUTICASONE FUROATE 100MCG 14 PUFFS/INHALER INH SCH (09:34)
[2022-11-17] MEDS: PREGABALIN 100 MG CAP PO SCH ×3 (09:39→21:13)
[2022-11-17] MEDS: oxyCODONE/ACETAMINOPHEN 5mg/325mg TAB PO PRN ×2 (09:39→16:28)
[2022-11-17 10:27] LABS: Hematocrit (blood only) 37.2 % (37.0-47.0); Hemoglobin 12.3 g/dl (12.0-16.0); Mean Corpuscular Hemoglobin 29.1 pg (25.0-34.0); Mean Corpuscular Hgb Conc 33.1 g/dL (32.0-36.0); Mean Corpuscular Volume 87.9 fL (80.0-100.0); Mean Platelet Volume 10.1 fL (9.4-12.4); Platelet Count 230 K/uL (130-400); RDW Coefficient of Variation 15.1 % (11.5-14.5); RDW Standard Deviation 48.4 fL (36.4-46.3); Red Blood Count 4.23 M/uL (4.20-5.40); White Blood Count 6.63 K/ul (4.8-10.8)
[2022-11-17 11:04] LABS: BUN Creatinine Ratio 32.1 (10-20); Calcium 9.2 mg/dl (8.5-10.1); Creatinine Clr Calc Pharmacy 38.8 ml/min; Est GFR (African American) 46.4 ml/min; Potassium 3.4 mmol/L (3.5-5.1)
--- NOTE | 2022-11-17 16:11 | Hospitalist Progress Note ---
Date of Service November 17, 2022 Assessment & Plan (1) Weakness: Plan: Ambulatory dysfunction Mostly related to UTI CT head showed no acute intracranial abnormality. Continue PT/OT eval Fall precaution Complicated UTI Urine cx grew ESBL Continue IV ertapenem Continue monitor Renal stones Hx of multiples renal stones Renal u/s showed no hydronephrosis. Left-sided renal calculi are noted. Follow with [facility] Continue pain control Peripheral neuropathy Lamictal recently added by neurology Continue pregabalin and duloxetine Chronic diastolic heart failure No sign of volume overload Continue monitor Hypokalemia Potassium 3.4 Continue K supplement Continue monitor BMP LARRY Asthma stable DVT prophylaxis. Lovenox subcu Full code Admission and Anticipated Discharge Date Admission Date: November 16, 2022 Subjective Patient was seen and examined for follow-up of weakness and UTI Sitting in chair with no acute distress watching TV She is having low back pain that she believes it is due to her kidney stone She said her energy is slightly better compared to when she came Denies any chest pain, palpitation, dizziness, shortness of breath. Review of Systems Review of Systems: All systems reviewed & are unremarkable except as noted in Subjective Physical Exam Physical Exam: General- No acute distress Head- atraumatic Eyes- PERRL, EOMI, ENT- oropharynx clear Neck- supple, no JVD Lungs- clear to auscultation Heart- regular rhythm; no murmur Abdomen- normal bowel sounds, soft, nontender Extremities- no calf tenderness Neuro- alert, oriented x 3; PERRL, EOMI; no facial palsy; no dysarthria Skin- warm & dry Results & Data Results & Data ([facility]) Vital Signs (Past 12 Hours) Vital Signs Temp Pulse Pulse Resp BP Pulse Ox O2 Del Method 11/17/22 15:00 62 11/17/22 07:00 66 11/17/22 15:15 36.5 C 64 18 92/62 L 97 Room Air 11/17/22 10:59 36.7 C 63 18 87/56 L 94 Room Air 11/17/22 07:35 36.5 C 61 18 101/66 97 Room Air
[2022-11-17] MEDS: LIDOCAINE 5% 1 PATCH TD SCH (18:13)
--- NOTE | 2022-11-17 20:30 | Ultrasound Report ---
ULTRASOUND KIDNEYS AND BLADDER CLINICAL HISTORY: Flank pain. COMPARISON STUDY: Renal ultrasound dated 11/05/2022. Abdominal CT dated 06/02/2022. TECHNIQUE: Real-time, grayscale, and color flow sonography of the kidneys and bladder is performed. I mages are reviewed in the transverse and longitudinal planes. FINDINGS: Kidneys: The right kidney is atrophic and echogenic. There is a mild cortical atrophy of the left kid nimco. The right kidney measures 5.6 x 2.6 x 2.4 cm and the left kidney measures 8.5 x 5.0 x 4.4 cm. T here is no hydronephrosis. Nonobstructing left renal calculi measuring up to 8 mm. A 1 1.8 cyst is no nikkie on the right. There is no sonographic evidence of contour deforming renal mass lesion. No perinep hric fluid is identified. Bladder: The bladder wall appears mildly thickened. Ureteral jets were not seen. IMPRESSION: 1. The right kidney is atrophic and echogenic. 2. No hydronephrosis. 3. The bladder wall appears mildly thickened. Correlate with clinical findings and urinalysis. 4. Left-sided renal calculi are noted. ACT 112: Negative or not required by law. Electronically signed by: Chinedu Hicks M.D. 11/17/2022 8:29 PM
[2022-11-17] MEDS: rOPINIRole HCL 0.25 MG TABLET PO SCH (21:10)
[2022-11-17] MEDS: DULoxetine HCL 20 MG CAP PO SCH (21:12)
[2022-11-17] MEDS: ACETAMINOPHEN 325 MG TAB PO PRN (21:13)
[2022-11-17] MEDS: risperiDONE 2 MG TABLET PO SCH (21:13)
[2022-11-17] MEDS: MONTELUKAST SODIUM 10 MG TABLET PO SCH (21:13)
[2022-11-18] MEDS: WELCHOL~ORDER AWAITING ACTION SCH ×4 (01:04→21:52)
[2022-11-18] MEDS: ERTAPENEM SODIUM 1,000 MG in SYRINGE 0 ML IV SCH (05:49)
[2022-11-18] MEDS: LEVOTHYROXINE SODIUM 88 MCG TABLET PO SCH (05:49)
[2022-11-18] MEDS: PANTOprazole 40 MG TAB PO SCH ×2 (07:39→21:49)
[2022-11-18] MEDS: TAMSULOSIN HCL 0.4 MG CAP PO SCH (07:39)
[2022-11-18] MEDS: ESCITALOPRAM OXALATE 20 MG TAB PO SCH (07:39)
[2022-11-18] MEDS: POTASSIUM CHLORIDE 10 MEQ TABCR PO SCH ×3 (07:39→21:50)
[2022-11-18] MEDS: PANCREAZE (LIPASE 10,500U) CAP PO SCH ×3 (07:40→16:06)
[2022-11-18] MEDS: CEROVITE ADV FORMULA TAB PO SCH (07:40)
[2022-11-18] MEDS: CYANOCOBALAMIN (B-12) 500 MCG TABLET PO SCH (07:40)
[2022-11-18] MEDS: lamoTRIgine 25 MG TAB PO SCH ×2 (07:40→21:48)
[2022-11-18] MEDS: ROSUVASTATIN CALCIUM 10 MG TAB PO SCH (07:40)
[2022-11-18] MEDS: DESIPRAMINE HCL 50 MG TAB PO SCH ×2 (07:40→21:47)
[2022-11-18] MEDS: ENOXAPARIN INJ 40 MG/0.4 ML SYR SQ SCH (07:41)
[2022-11-18] MEDS: FLUTICASONE FUROATE 100MCG 14 PUFFS/INHALER INH SCH (07:42)
[2022-11-18] MEDS: LIDOCAINE 5% 1 PATCH TD SCH (07:42)
[2022-11-18] MEDS: UMECLIDINIUM/VILANTEROL 62.5/25MCG 7 PUFFS/INHALER INH SCH (07:43)
[2022-11-18] MEDS: PREGABALIN 100 MG CAP PO SCH ×3 (07:50→21:56)
[2022-11-18 08:08] LABS: Calcium 9.1 mg/dl (8.5-10.1); Creatinine Clr Calc Pharmacy 35.6 ml/min; Est GFR (African American) 41.8 ml/min; Est GFR (Non-African American) 36.1 ml/min; Potassium 2.9 mmol/L (3.5-5.1)
[2022-11-18] MEDS ORDERED: POTASSIUM CHLORIDE CRTAB 20 MEQ TABCR PO STA (08:57)
[2022-11-18] MEDS ORDERED: SODIUM CHLORIDE 0.9% 1000ML 1,000 ML IV SCH (09:00)
[2022-11-18] MEDS: ACETAMINOPHEN 325 MG TAB PO PRN (10:47)
[2022-11-18] MEDS: HYDROCORTISONE 2.5% CR 30 GM TUBE EXT PRN (11:46)
--- NOTE | 2022-11-18 18:00 | Hospitalist Progress Note ---
Date of Service November 18, 2022 Assessment & Plan (1) Weakness: Plan: Ambulatory dysfunction Mostly related to UTI CT head showed no acute intracranial abnormality. Continue PT/OT eval Fall precaution Clinically improved Complicated UTI Urine cx grew ESBL Continue IV ertapenem to complete 7 days course Continue monitor Renal stones Hx of multiples renal stones Renal u/s showed no hydronephrosis. Left-sided renal calculi are noted. Follow with Dakota peres urology Continue pain control Pain improved Peripheral neuropathy Lamictal recently added by neurology Continue pregabalin and duloxetine Chronic diastolic heart failure No sign of volume overload Continue monitor Hypokalemia Potassium 2.9 today Continue K supplement Will check BMP later JAVI Creatinine increased to 1.4 Will continue gentle IVF Continue to hold Torsemide Avoid nephrotoxic agents Will consult nephrology Continue monitor BMP LARRY Asthma stable DVT prophylaxis. Lovenox subcu Full code Disposition will discharge once medically stable Admission and Anticipated Discharge Date Admission Date: November 16, 2022 Subjective Patient was seen and examined for follow-up of weakness and UTI Sitting in chair with no acute distress Patient states she is feeling much better. She was walking in the hallway early today She said that her energy feels better Denies any chest pain, palpitation, dizziness, shortness of breath. Review of Systems Review of Systems: All systems reviewed & are unremarkable except as noted in Subjective Physical Exam Physical Exam: General- No acute distress Head- atraumatic Eyes- PERRL, EOMI, ENT- oropharynx clear Neck- supple, no JVD Lungs- clear to auscultation Heart- regular rhythm; no murmur Abdomen- normal bowel sounds, soft, nontender Extremities- no calf tenderness Neuro- alert, oriented x 3; PERRL, EOMI; no facial palsy; no dysarthria Skin- warm & dry Results & Data Results & Data ([facility]) Vital Signs (Past 12 Hours) Vital Signs Temp Pulse Pulse Resp BP Pulse Ox O2 Del Method 11/18/22 15:47 36.7 C 55 L 18 104/69 96 Room Air 11/18/22 15:21 57 L 11/18/22 11:05 36.6 C 60 18 97/62 L 99 Room Air 11/18/22 07:41 36.4 C L 60 18 99/65 L 95 Room Air 11/18/22 07:24 63
[2022-11-18 20:14] LABS: BUN Creatinine Ratio 26.2 (10-20); Calcium 8.3 mg/dl (8.5-10.1); Creatinine Clr Calc Pharmacy 27.8 ml/min; Est GFR (Non-African American) 26.8 ml/min; Potassium 4.1 mmol/L (3.5-5.1)
[2022-11-18] MEDS: DULoxetine HCL 20 MG CAP PO SCH (21:47)
[2022-11-18] MEDS: MONTELUKAST SODIUM 10 MG TABLET PO SCH (21:48)
[2022-11-18] MEDS: risperiDONE 2 MG TABLET PO SCH (21:51)
[2022-11-18] MEDS: rOPINIRole HCL 0.25 MG TABLET PO SCH (21:51)
[2022-11-18] MEDS: oxyCODONE/ACETAMINOPHEN 5mg/325mg TAB PO PRN (21:56)
[2022-11-19] MEDS: HYDROCORTISONE 2.5% CR 30 GM TUBE EXT PRN (06:17)
[2022-11-19] MEDS: ERTAPENEM SODIUM 1,000 MG in SYRINGE 0 ML IV SCH (06:17)
[2022-11-19] MEDS: LEVOTHYROXINE SODIUM 88 MCG TABLET PO SCH (06:17)
[2022-11-19 06:20] LABS: Basophils # (auto) 0.05 K/uL (0-0.2); Basophils % (auto) 0.9 %; Eosinophils # (auto) 0.19 K/uL (0-0.50); Eosinophils % (auto) 3.6 %; Hematocrit (blood only) 34.7 % (37.0-47.0); Hemoglobin 11.5 g/dl (12.0-16.0); Immature Granulocytes # (auto) 0.02 K/uL (0.01-0.20); Immature Granulocytes % (auto) 0.4 %; Lymphocytes # (auto) 1.27 K/uL (1.2-3.4); Lymphocytes % (auto) 24.1 %; Mean Corpuscular Hemoglobin 29.6 pg (25.0-34.0); Mean Corpuscular Hgb Conc 33.1 g/dL (32.0-36.0); Mean Corpuscular Volume 89.4 fL (80.0-100.0); Mean Platelet Volume 9.7 fL (9.4-12.4); Monocytes # (auto) 0.46 K/uL (0.11-0.59); Monocytes % (auto) 8.7 %; Neutrophils # (auto) 3.28 K/uL (1.40-6.50); Neutrophils % (auto) 62.3 %; Platelet Count 200 K/uL (130-400); RDW Coefficient of Variation 14.9 % (11.5-14.5); RDW Standard Deviation 48.9 fL (36.4-46.3); Red Blood Count 3.88 M/uL (4.20-5.40); White Blood Count 5.27 K/ul (4.8-10.8)
[2022-11-19 07:59] LABS: BUN Creatinine Ratio 34.3 (10-20); Calcium 8.3 mg/dl (8.5-10.1); Creatinine Clr Calc Pharmacy 37.9 ml/min; Est GFR (African American) 46.4 ml/min; Magnesium 2.1 mg/dl (1.7-2.4); Phosphorus 3.3 mg/dl (2.5-4.9); Potassium 3.7 mmol/L (3.5-5.1)
[2022-11-19] MEDS: PREGABALIN 100 MG CAP PO SCH ×3 (08:30→22:02)
[2022-11-19] MEDS: oxyCODONE/ACETAMINOPHEN 5mg/325mg TAB PO PRN ×3 (08:30→22:02)
[2022-11-19] MEDS: CEROVITE ADV FORMULA TAB PO SCH (08:31)
[2022-11-19] MEDS: ROSUVASTATIN CALCIUM 10 MG TAB PO SCH (08:31)
[2022-11-19] MEDS: CYANOCOBALAMIN (B-12) 500 MCG TABLET PO SCH (08:31)
[2022-11-19] MEDS: ADVANCED PROBIOTIC 1250 MG CAPSULE PO SCH (08:31)
[2022-11-19] MEDS: POTASSIUM CHLORIDE 10 MEQ TABCR PO SCH ×3 (08:31→21:59)
[2022-11-19] MEDS: TAMSULOSIN HCL 0.4 MG CAP PO SCH (08:32)
[2022-11-19] MEDS: PANCREAZE (LIPASE 10,500U) CAP PO SCH ×3 (08:32→16:52)
[2022-11-19] MEDS: lamoTRIgine 25 MG TAB PO SCH ×2 (08:32→21:58)
[2022-11-19] MEDS: PANTOprazole 40 MG TAB PO SCH ×2 (08:32→21:59)
[2022-11-19] MEDS: DESIPRAMINE HCL 50 MG TAB PO SCH ×2 (08:32→21:58)
[2022-11-19] MEDS: ESCITALOPRAM OXALATE 20 MG TAB PO SCH (08:32)
[2022-11-19] MEDS: LIDOCAINE 5% 1 PATCH TD SCH (08:33)
[2022-11-19] MEDS: FLUTICASONE FUROATE 100MCG 14 PUFFS/INHALER INH SCH (08:33)
[2022-11-19] MEDS: ENOXAPARIN INJ 40 MG/0.4 ML SYR SQ SCH (08:34)
[2022-11-19] MEDS: UMECLIDINIUM/VILANTEROL 62.5/25MCG 7 PUFFS/INHALER INH SCH (08:39)
--- NOTE | 2022-11-19 09:05 | Hospitalist Progress Note ---
Date of Service November 19, 2022 Assessment & Plan (1) Weakness: Plan: Ambulatory dysfunction Mostly related to UTI CT head showed no acute intracranial abnormality. Continue PT/OT eval Fall precaution Clinically improved Complicated UTI Urine cx grew ESBL Continue IV ertapenem to complete 7 days course Continue monitor Renal stones Hx of multiples renal stones Renal u/s showed no hydronephrosis. Left-sided renal calculi are noted. Follow with Dakota alberto urology Continue pain control Pain improved JAVI Creatinine increased to 1.8 yesterday - now down to 1.3 Received gentle IVF Continue to hold Torsemide Avoid nephrotoxic agents Continue monitor BMP Discussed with Dakota Alberto nephrology (pt follows w/ [facility] nephro) - reviewed renal ultrasound, and would recommend to stop IV fluids now, and recheck BMP in the morning. If no traumatic changes, okay to discharge patient tomorrow. Patient should follow-up with nephrology and have BMP checked on Thursday or Thursday. Patient will be contacted about the follow-up appointment. Peripheral neuropathy Lamictal recently added by neurology Continue pregabalin and duloxetine Chronic diastolic heart failure No sign of volume overload Continue monitor Hypokalemia Potassium 3.7 today Continue K supplement Continue to monitor LARRY Asthma stable DVT prophylaxis. Lovenox subcu Full code Disposition will discharge once medically stable / possibly tomorrow Admission and Anticipated Discharge Date Admission Date: November 16, 2022 Subjective Patient was seen and examined for follow-up of weakness and UTI Sitting in chair with no acute distress Patient states she is feeling better. She was walking in the hallway yesterday Denies any chest pain, palpitation, dizziness, shortness of breath. Cr up yesterday - received IVF Discussed w/ nephrology over the phone. Review of Systems Review of Systems: All systems reviewed & are unremarkable except as noted in Subjective Physical Exam Physical Exam: General- elderly F sitting up in chair, in No acute distress Head- atraumatic Eyes- PERRL, EOMI, ENT- oropharynx clear Neck- supple, no JVD Lungs- clear to auscultation Heart- regular rhythm; no murmur Abdomen- normal bowel sounds, soft, nontender Extremities- no calf tenderness Neuro- alert, oriented x 3; PERRL, EOMI; no facial palsy; no dysarthria, moves extremities Skin- warm & dry Results & Data Results & Data ([facility]) Vital Signs (Past 12 Hours) Vital Signs Temp Pulse Pulse Resp BP Pulse Ox O2 Del Method 11/19/22 07:38 71 11/19/22 07:17 36.6 C 69 20 95/61 L 95 Room Air 11/19/22 02:05 36.4 C L 70 18 112/73 93 Room Air 11/18/22 22:00 Room Air 11/18/22 22:10 66 11/18/22 22:00 36.3 C L 66 18 91/57 L 91 Room Air Laboratory Results 11/19/22 11/19/22 11/18/22 Range/Units 06:07 06:07 18:31 WBC 5.27 (4.8-10.8) K/ul RBC 3.88 L (4.20-5.40) M/uL Hgb 11.5 L (12.0-16.0) g/dl Hct 34.7 L (37.0-47.0) % MCV 89.4 (80.0-100.0) fL MCH 29.6 (25.0-34.0) pg MCHC 33.1 (32.0-36.0) g/dL RDW Std Deviation 48.9 H (36.4-46.3) fL RDW Coeff of David 14.9 H (11.5-14.5) % Plt Count 200 (130-400) K/uL MPV 9.7 (9.4-12.4) fL Immature Gran % (Auto) 0.4 % Neut % (Auto) 62.3 % Lymph % (Auto) 24.1 % [place] % (Auto) 8.7 % Eos % (Auto) 3.6 % Baso % (Auto) 0.9 % Neut # (Auto) 3.28 (1.40-6.50) K/uL Lymph # (Auto) 1.27 (1.2-3.4) K/uL [place] # (Auto) 0.46 (0.11-0.59) K/uL Eos # (Auto) 0.19 (0-0.50) K/uL Baso # (Auto) 0.05 (0-0.2) K/uL Immature Gran # (Auto) 0.02 (0.01-0.20) K/uL Sodium 142 138 (136-145) mmol/L Potassium 3.7 4.1 D (3.5-5.1) mmol/L Chloride 107 104 (98-107) mmol/L Carbon Dioxide 31 27 (21-32) mmol/L Anion Gap 4 7 (3-11) BUN 46 H 49 H (6-23) mg/dl Creatinine 1.34 H D 1.87 H D (0.6-1.2) mg/dl Est Cr Clr Drug Dosing 37.9 27.8 ml/min Est GFR ( Amer) 46.4 31.0 ml/min Est GFR (Non-Af Amer) 40.0 26.8 ml/min BUN/Creatinine Ratio 34.3 H 26.2 H (10-20) Glucose 96 164 H (70-99(Fasting)) mg/dl Calcium 8.3 L 8.3 L (8.5-10.1) mg/dl Phosphorus 3.3 (2.5-4.9) mg/dl Magnesium 2.1 (1.7-2.4) mg/dl Medications Administered Current Inpatient Medications Acetaminophen (Acetaminophen 325 Mg Tab) 650 mg PO Q4H PRN PRN Reason: Pain or Fever Stop: 12/16/22 02:15 Last Admin: 11/18/22 10:47 Dose: 650 mg Albuterol (Albut/Ipratrop 3mg/0.5mg Neb 3 Ml Vial) 3 ml INH Q4H PRN; Protocol PRN Reason: Shortness Of Breath Or Wheezing Stop: 12/16/22 02:15 Lipase/Protease/Amylase (Pancreaze (Lipase 10,500u) Cap) 4 cap PO AC CATE Stop: 12/16/22 16:29 Last Admin: 11/19/22 08:32 Dose: 4 cap Cyanocobalamin (Cyanocobalamin (B-12) 500 Mcg Tablet) 1,000 mcg PO QAM CATE Stop: 12/16/22 08:59 Last Admin: 11/19/22 08:31 Dose: 1,000 mcg Desipramine HCl (Desipramine Hcl 50 Mg Tab) 50 mg PO BID CATE Stop: 12/16/22 02:15 Last Admin: 11/19/22 08:32 Dose: 50 mg Duloxetine HCl (Duloxetine Hcl 20 Mg Cap) 20 mg PO HS CATE Stop: 12/16/22 20:59 Last Admin: 11/18/22 21:47 Dose: 20 mg Enoxaparin Sodium (Enoxaparin Inj 40 Mg/0.4 Ml Syr) 40 mg SQ QAM [facility] Stop: 12/16/22 08:59 Last Admin: 11/19/22 08:34 Dose: 40 mg Escitalopram Oxalate (Escitalopram Oxalate 20 Mg Tab) 20 mg PO QAM [facility] Stop: 12/16/22 08:59 Last Admin: 11/19/22 08:32 Dose: 20 mg Fluticasone Furoate (Fluticasone Furoate 100mcg 14 Puffs/Inhaler) 1 puffs INH DAILY [facility] Stop: 12/16/22 08:59 Last Admin: 11/19/22 08:33 Dose: 1 puffs Heparin Sodium (Porcine) (Heparin 100 Unit/Ml 5ml Flush) 5 ml FLUSH PRN PRN PRN Reason: Flush Stop: 12/16/22 02:40 Hydrocortisone (Hydrocortisone 2.5% Cr 30 Gm Tube) 1 appln EXT BID PRN PRN Reason: itchy rash Stop: 12/17/22 06:48 Last Admin: 11/19/22 06:17 Dose: 1 appln Ertapenem 1,000 mg/ Syringe 10 mls @ 2 mls/min IV Q24H [facility]; Protocol Stop: 11/26/22 05:59 Last Admin: 11/19/22 06:17 Dose: 2 mls/min Sodium Chloride (Nss 1000ml) 1,000 mls @ 80 mls/hr IV .[id number] [facility] Stop: 11/19/22 12:52 Last Infusion: 11/19/22 01:36 Dose: Infused Lactobacillus Acidophilus (Advanced Probiotic 1250 Mg Capsule) 2 cap PO DAILY [facility] Stop: 12/19/22 08:59 Last Admin: 11/19/22 08:31 Dose: 2 cap Lamotrigine (Lamotrigine 25 Mg Tab) 25 mg PO BID [facility] Stop: 12/16/22 02:15 Last Admin: 11/19/22 08:32 Dose: 25 mg Levothyroxine Sodium (Levothyroxine Sodium 88 Mcg Tablet) 88 mcg PO DAILYBB [facility] Stop: 12/16/22 06:29 Last Admin: 11/19/22 06:17 Dose: 88 mcg Lidocaine (Lidocaine 5% 1 Patch) [facility] Stop: 12/17/22 16:29 Last Admin: 11/19/22 08:33 Dose: 1 patch Lorazepam (Lorazepam 0.5 Mg Tab) 0.5 mg PO BID PRN PRN Reason: Anxiety Stop: 12/16/22 02:15 Miscellaneous (Welchol~Order Awaiting Action) 1 each N/A QS CATE Stop: 12/16/22 07:59 Last Admin: 11/18/22 21:52 Dose: Not Given Miscellaneous (Remove Lidoderm Patch) 1 each N/A DAILY@2100 [facility] Stop: 12/17/22 20:59 Last Admin: 11/18/22 21:51 Dose: Not Given Montelukast Sodium (Montelukast Sodium 10 Mg Tablet) 10 mg PO HS [facility] Stop: 12/16/22 20:59 Last Admin: 11/18/22 21:48 Dose: 10 mg Multivitamins/Minerals (Cerovite Adv Formula Tab) 1 tab PO DAILY [facility] Stop: 12/16/22 08:59 Last Admin: 11/19/22 08:31 Dose: 1 tab Ondansetron HCl (Ondansetron Inj 2 Mg/Ml 2 Ml Vial) 4 mg IV Q4H PRN PRN Reason: Nausea Stop: 12/16/22 02:15 Oxycodone/Acetaminophen (Oxycodone/Acetaminophen 5mg/325mg Tab) 1 tab PO Q6H P RN PRN Reason: Pain Stop: 11/30/22 02:15 Last Admin: 11/19/22 08:30 Dose: 1 tab Pantoprazole Sodium (Pantoprazole 40 Mg Tab) 40 mg PO BID [facility] Stop: 12/16/22 08:59 Last Admin: 11/19/22 08:32 Dose: 40 mg Potassium Chloride (Potassium Chloride 10 Meq Tabcr) 10 meq PO TID [facility] Stop: 12/16/22 08:59 Last Admin: 11/19/22 08:31 Dose: 10 meq Pregabalin (Pregabalin 100 Mg Cap) 100 mg PO TID [facility] Stop: 12/16/22 08:59 Last Admin: 11/19/22 08:30 Dose: 100 mg Risperidone (Risperidone 2 Mg Tablet) 2 mg PO HS [facility] Stop: 12/16/22 20:59 Last Admin: 11/18/22 21:51 Dose: 2 mg Ropinirole HCl (Ropinirole Hcl 0.25 Mg Tablet) 0.5 mg PO HS [facility] Stop: 12/16/22 20:59 Last Admin: 11/18/22 21:51 Dose: 0.5 mg Rosuvastatin Calcium (Rosuvastatin Calcium 10 Mg Tab) 10 mg PO DAILY [facility] Stop: 12/16/22 08:59 Last Admin: 11/19/22 08:31 Dose: 10 mg Tamsulosin HCl (Tamsulosin Hcl 0.4 Mg Cap) 0.4 mg PO DAILY [facility] Stop: 12/16/22 08:59 Last Admin: 11/19/22 08:32 Dose: 0.4 mg Umeclidinium/Vilanterol (Umeclidinium/Vilanterol 62.5/25mcg 7 Puffs/Inhaler) 1 puffs INH DAILY [facility] Stop: 12/16/22 08:59 Last Admin: 11/19/22 08:39 Dose: 1 puffs Zinc Acetate/Diphenhydramine (Diphenhydramine 2%/Zinc 0.1% Cream 28gm Tube) 1 appln EXT Q8H PRN PRN Reason: Itching Stop: 12/17/22 18:45 Last Admin: 11/19/22 08:33 Dose: 1 appln
--- NOTE | 2022-11-19 11:13 | Nephrology Consultation ---
Date of Consultation November 19, 2022 History of Present Illness Reason for Consultation: Acute kidney injury Requesting Physician: Dr. Cummings Attending Physician: Kenny Easley MD History of Present Illness 72-year-old female whom I am asked to evaluate for acute kidney injury was admitted on November 16 with recurrent falls and a complicated UTI. Past medical history includes chronic diastolic heart failure, sleep apnea, pulmonary hypertension, history of gastric bypass, hypothyroid, hyperparathyroidism, ankylosing spondylitis, recurrent urinary tract infections with ESBL E coli and urolithiasis, chronic pain/neuropathy, anxiety disorder, polypharmacy. Allergies Allergy/AdvReac Type Severity Reaction Status Date / Time bethanechol Allergy Intermediate RASH, Verified 11/15/22 22:07 "FEELS FUNNY" Cephalosporins Allergy Intermediate RASH, Verified 11/15/22 22:07 DIARRHEA ertapenem Allergy Intermediate RASH Verified 11/15/22 22:07 levofloxacin Allergy Intermediate RASH,TURNED Verified 11/15/22 22:07 RED Sulfa (Sulfonamide Allergy Intermediate Generalized Verified 11/15/22 22:07 Antibiotics) Rash clindamycin Allergy Unknown Unknown Verified 11/15/22 22:07 dipyridamole Allergy Unknown UNKNOWN Verified 11/15/22 22:07 droperidol Allergy Unknown Unknown Verified 11/15/22 22:07 promethazine Allergy Unknown UNKNOWN Verified 11/15/22 22:07 tobramycin Allergy Unknown UNKNOWN Verified 11/15/22 22:07 aspirin AdvReac Severe BLEEDING Verified 11/15/22 22:07 doxycycline AdvReac Severe severe Verified 11/15/22 22:07 Diarrhea, nausea metolazone AdvReac Severe ELECTROLYTE Verified 11/15/22 22:07 ISSUES bupropion AdvReac Intermediate NERVOUS Verified 11/15/22 22:07 REACTION cephalexin AdvReac Intermediate GI SYMPTOMS Verified 11/15/22 22:07 morphine AdvReac Intermediate NERVOUS Verified 11/15/22 22:07 REACTION TO IT nitrofurantoin AdvReac Intermediate Vomiting Verified 11/15/22 22:07 [From Macrobid] prochlorperazine AdvReac Intermediate NERVOUS Verified 11/15/22 22:07 REACTION tedizolid AdvReac Intermediate GI SYMPTOMS Verified 11/15/22 22:07 Home Medications Medication Instructions Recorded Confirmed Type colesevelam 625 mg tablet (WelChol) 625 mg PO TID 06/17/18 11/15/22 History montelukast 10 mg tablet 10 mg PO HS 06/17/18 11/15/22 History (Singulair) ipratropium 0.5 mg-albuterol 3 mg 3 ml inhalation Q4H PRN Shortness 05/05/19 11/15/22 History (2.5 mg base)/3 mL nebulization Of Breath Or Wheezing soln gavpie-xemmawqj-kyqvjct 4 cap PO TID 05/05/19 11/15/22 History 24,000-76,000-120,000 unit capsule,delayed rel (Creon) omeprazole magnesium 20 mg 20 mg PO BID 05/17/19 11/15/22 History tablet,delayed release (Prilosec OTC) mecobalamin (vitamin B12) 1,000 1,000 mcg PO QAM 01/21/21 11/15/22 History mcg disintegrating tablet,sublingual risperidone 2 mg tablet 2 mg PO HS 02/27/21 11/15/22 History potassium chloride 10 mEq 10 meq PO TID 12/04/21 11/15/22 History capsule,extended release desipramine 50 mg tablet 50 mg PO BID 01/23/22 11/15/22 History levothyroxine 88 mcg tablet 88 mcg PO QAM 05/19/22 11/15/22 History calcitriol 0.5 mcg capsule 0.5 mcg PO BID #60 caps 07/02/22 11/15/22 Rx calcium carbonate 600 mg calcium 1,200 mg PO TID #180 tabs 07/02/22 11/15/22 Rx (1,500 mg) tablet (Calcium) albuterol sulfate 90 mcg/actuation 2 inh inhalation Q6H PRN Shortness 07/31/22 11/15/22 Rx breath activated powder inhaler Of Breath Or Wheezing #1 ea fluticasone fur. 100 mcg-umeclid 1 inh inhalation QAM #60 ea 07/31/22 11/15/22 Rx 62.5 mcg-vilant 25 mcg inhalat.powder (Trelegy Ellipta) pregabalin 100 mg capsule 100 mg PO TID #90 caps 10/01/22 11/15/22 Rx duloxetine 20 mg capsule,delayed 20 mg PO HS #30 caps 10/29/22 11/15/22 Rx release (Cymbalta) lamotrigine 25 mg tablet 25 mg PO BID #60 tabs 11/06/22 11/15/22 Rx lorazepam 0.5 mg tablet 0.5 mg PO BID PRN Anxiety 11/06/22 11/15/22 History cholecalciferol (vitamin D3) 25 50 mcg PO DAILY 11/15/22 11/15/22 History mcg (1,000 unit) capsule (Vitamin D3) escitalopram oxalate 20 mg tablet 20 mg PO QAM 11/15/22 11/15/22 History metolazone 2.5 mg tablet 2.5 mg PO DAILY PRN WT >199 LBS. 11/15/22 11/15/22 History pmzdtjdnclym-syxqdhzj-xhskwg tablet 1 tab PO DAILY 11/15/22 11/15/22 History oxycodone-acetaminophen 5 mg-325 1 tab PO Q6H PRN Pain 11/15/22 11/15/22 History mg tablet (Percocet) ropinirole 0.5 mg tablet 0.5 mg PO HS 11/15/22 11/15/22 History rosuvastatin 10 mg tablet 10 mg PO DAILY 11/15/22 11/15/22 History tamsulosin 0.4 mg capsule (Flomax) 0.4 mg PO DAILY 11/15/22 11/15/22 History torsemide 20 mg tablet 40 mg PO BID 11/15/22 11/15/22 History valacyclovir 500 mg tablet 500 mg PO DAILY 11/15/22 11/15/22 History Patient History Medical History Asthma Atherosclerosis of both lower extremities Chronic diastolic (congestive) heart failure Hospitalized March 2022 Follows w/[facility] (Dr. Otoole), EF 55-60% Chronic kidney disease stage 3b Chronic sinusitis Chronic urinary tract infection Chronic venous insufficiency COPD (chronic obstructive pulmonary disease) Depression GERD without esophagitis H/O concussion "a long time ago" History of anemia History of esophageal dilatation Hyperlipidemia per records Hypothyroidism Incisional hernia Abdominal (from multiple surgeries/feeding tube) Kidney stones Lumbar transverse process fracture Pt reports lower back detioriating - can't lie flat/sleep on a chair MRSA (methicillin resistant staph aureus) culture positive History of Left wrist Had 3 nasal swab and all negative (through [facility] per pt) Obesity Osteoporosis Pancreatic insufficiency chronic pancreatitis Peripheral neuropathy Port-A-Cath in place right side due to poor vascular access PUD (peptic ulcer disease) Had feeding tube for 28 years (has been removed for 11 years) Pulmonary hypertension mild per 07/[address] report PVC (premature ventricular contraction) Reactive hypoglycemia Secondary hyperparathyroidism Sepsis 05/2020 @ [facility], urosepsis 2/2 obstructing renal stone, S/P cysto/stent and ESWL Short bowel syndrome Sleep apnea complex sleep apnea, BIPAP *has not used it, can't get used to wearing a mask SOB (shortness of breath) on exertion Trouble swallowing hx egd with dilation / "narrowing" Urinary leakage Wrist injury Scar tissue surrounding remote wrist ORIF several years ago resulting in intermittent inflammation per pt Surgical History H/O shoulder surgery RT arthroscopy 05/28/2021: LMA#4 atraumatic x 1 + PNB. Anesthesia postop progress note: "Pt denies SOB at this time. Block is functioning well. Vital signs stable and appropriate. Oxygenating well considering block placement and her comorbidities. Plan to discharge home with IS." History of appendectomy History of cardiac cath 08/2019 ([facility]): essentially normal coronary arteries angiographically, + luminal irregularities. no stents History of cholecystectomy History of colonoscopy History of cystoscopy multiple History of esophagogastroduodenoscopy (EGD) History of gastrointestinal surgery multiple History of joint replacement Rt thumb History of knee replacement procedure of right knee History of open reduction and internal fixation (ORIF) procedure left wrist + manipulation (01/2018) and I&D (10/2019) History of partial gastrectomy History of prior ablation treatment Right LE in January 2020 and left LE 04/18/20 History of sinus surgery History of tonsillectomy and adenoidectomy History of total abdominal hysterectomy and bilateral salpingo-oophorectomy S/P right rotator cuff repair S/P ureteral stent placement Status post laser lithotripsy of ureteral calculus most recent litho nov 2021 04/29/2021: LMA#4 atraumatic x 1. [facility]. 03/01/2021: LMA#4 atraumatic x 1. [facility]. 02/04/2021: LMA#4 atraumatic x 1. [facility]. 07/04/2020: LMA#4 atraumatic x 1. [facility]. No issues per anesthesia postop progress notes. Family History Mother Family history of diabetes mellitus Sister Family history of diabetes mellitus Family history of breast cancer Father Esophageal cancer Other Family history non-contributory No family history of adverse response to anesthesia Social History Smoking Status: Never smoker Second Hand Exposure: Yes ( A CHILD); Hx Alcohol Use: No Hx Substance Use: No Preferred Language: Mongolian Communication Ability: Effective Visual Impairment: No Limitations Child Development Specialist Required: No Beliefs That Will Affect Care: None marital status: Single Current Living Situation: Alone Current Living Situation Comment: APARTMENT COMPLEX>FRIENDS ALL AROUND How many Children do You have: 0 Other Information That Helps Us Care for You: No Feels Safe at Home: Yes Safety Concerns: Feels Safe At This Time Assistive Devices: Walker Results & Data ([facility]) Vital Signs (Past 12 Hours) Vital Signs Temp Pulse Pulse Resp BP Pulse Ox O2 Del Method 11/19/22 07:38 71 11/19/22 07:17 36.6 C 69 20 95/61 L 95 Room Air 11/19/22 02:05 36.4 C L 70 18 112/73 93 Room Air
[2022-11-19] MEDS: WELCHOL~ORDER AWAITING ACTION SCH ×3 (11:18→22:28)
[2022-11-19] MEDS ORDERED: diphenhydrAMINE Capsule 25 MG CAP PO PRN (13:14)
[2022-11-19] MEDS: DULoxetine HCL 20 MG CAP PO SCH (21:58)
[2022-11-19] MEDS: MONTELUKAST SODIUM 10 MG TABLET PO SCH (21:59)
[2022-11-19] MEDS: risperiDONE 2 MG TABLET PO SCH (22:00)
[2022-11-19] MEDS: rOPINIRole HCL 0.25 MG TABLET PO SCH (22:00)
[2022-11-20] MEDS: ERTAPENEM SODIUM 1,000 MG in SYRINGE 0 ML IV SCH (05:37)
[2022-11-20] MEDS: LEVOTHYROXINE SODIUM 88 MCG TABLET PO SCH (05:37)
[2022-11-20] MEDS: oxyCODONE/ACETAMINOPHEN 5mg/325mg TAB PO PRN (06:08)
[2022-11-20] MEDS: HYDROCORTISONE 2.5% CR 30 GM TUBE EXT PRN ×2 (06:09→08:59)
[2022-11-20 06:51] LABS: BUN Creatinine Ratio 37.9 (10-20); Calcium 8.6 mg/dl (8.5-10.1); Creatinine Clr Calc Pharmacy 43.7 ml/min; Est GFR (African American) 55.2 ml/min; Est GFR (Non-African American) 47.7 ml/min; Magnesium 2.1 mg/dl (1.7-2.4); Phosphorus 3.3 mg/dl (2.5-4.9); Potassium 3.6 mmol/L (3.5-5.1)
[2022-11-20] MEDS: PANCREAZE (LIPASE 10,500U) CAP PO SCH ×2 (08:55→12:14)
[2022-11-20] MEDS: ENOXAPARIN INJ 40 MG/0.4 ML SYR SQ SCH (08:56)
[2022-11-20] MEDS: ROSUVASTATIN CALCIUM 10 MG TAB PO SCH (08:57)
[2022-11-20] MEDS: CEROVITE ADV FORMULA TAB PO SCH (08:57)
[2022-11-20] MEDS: ADVANCED PROBIOTIC 1250 MG CAPSULE PO SCH (08:57)
[2022-11-20] MEDS: ESCITALOPRAM OXALATE 20 MG TAB PO SCH (08:57)
[2022-11-20] MEDS: CYANOCOBALAMIN (B-12) 500 MCG TABLET PO SCH (08:57)
[2022-11-20] MEDS: PANTOprazole 40 MG TAB PO SCH (08:57)
[2022-11-20] MEDS: lamoTRIgine 25 MG TAB PO SCH (08:57)
[2022-11-20] MEDS: DESIPRAMINE HCL 50 MG TAB PO SCH (08:57)
[2022-11-20] MEDS: UMECLIDINIUM/VILANTEROL 62.5/25MCG 7 PUFFS/INHALER INH SCH (08:58)
[2022-11-20] MEDS: TAMSULOSIN HCL 0.4 MG CAP PO SCH (08:58)
[2022-11-20] MEDS: FLUTICASONE FUROATE 100MCG 14 PUFFS/INHALER INH SCH (08:58)
[2022-11-20] MEDS: WELCHOL~ORDER AWAITING ACTION SCH (08:59)
[2022-11-20] MEDS: LIDOCAINE 5% 1 PATCH TD SCH (08:59)
[2022-11-20] MEDS: PREGABALIN 100 MG CAP PO SCH ×2 (09:04→13:18)
[2022-11-20] MEDS: POTASSIUM CHLORIDE 10 MEQ TABCR PO SCH ×2 (09:04→12:15)
--- NOTE | 2022-11-20 10:28 | Hospitalist Progress Note ---
Date of Service November 20, 2022 Assessment & Plan (1) Weakness: Plan: Ambulatory dysfunction Mostly related to UTI CT head showed no acute intracranial abnormality. Continue PT/OT eval Fall precaution Clinically improved Complicated UTI Urine cx grew ESBL Continue IV ertapenem to complete 7 days course (currently Day # 5 of 7) Continue monitor Renal stones Hx of multiples renal stones Renal u/s showed no hydronephrosis. Left-sided renal calculi are noted. Follows with [facility] ja urology Continue pain control Pain improved JAVI - resolved Creatinine increased to 1.8 then down to 1.3 , and down to 1.1 today Received gentle IVF Continue to hold Torsemide Avoid nephrotoxic agents Continue monitor BMP Discussed with [facility] nephrology Dr. Iesha Roberts (pt follows w/ [facility] nephro) - Patient should follow-up with nephrology and have BMP checked on Thursday or Thursday (pls send lab results to Dr. Loja). Patient will be contacted about the follow-up appointment. Peripheral neuropathy Lamictal recently added by neurology Continue pregabalin and duloxetine Chronic diastolic heart failure No sign of volume overload Continue monitor Hypokalemia Potassium 3.6 today Continue K supplement Continue to monitor LARRY Asthma stable DVT prophylaxis. Lovenox subcu Full code Disposition - plan to discharge today to [facility] Admission and Anticipated Discharge Date Admission Date: November 16, 2022 Subjective Patient was seen and examined for follow-up of weakness and UTI Sitting in chair in no acute distress Patient states she is feeling well overall. Denies any chest pain, palpitation, dizziness, shortness of breath. Review of Systems Review of Systems: All systems reviewed & are unremarkable except as noted in Subjective Physical Exam Physical Exam: General- elderly F sitting up in chair, in No acute distress Head- atraumatic Eyes- PERRL, EOMI, ENT- oropharynx clear Neck- supple, no JVD Lungs- clear to auscultation Heart- regular rhythm; no murmur Abdomen- normal bowel sounds, soft, nontender Extremities- no calf tenderness Neuro- alert, oriented x 3; PERRL, EOMI; no facial palsy; no dysarthria, moves extremities Skin- warm & dry Results & Data Results & Data ([facility] Vital Signs (Past 12 Hours) Vital Signs Temp Pulse Resp BP Pulse Ox O2 Del Method 11/20/22 08:00 36.3 C L 59 L 16 115/71 97 Room Air 11/20/22 03:00 36.3 C L 64 18 121/73 92 Room Air 11/20/22 00:24 Room Air 11/19/22 22:51 36.2 C L 69 18 109/70 95 Room Air Laboratory Results 11/20/22 Range/Units 06:08 Sodium 142 (136-145) mmol/L Potassium 3.6 (3.5-5.1) mmol/L Chloride 107 (98-107) mmol/L Carbon Dioxide 32 (21-32) mmol/L Anion Gap 3 (3-11) BUN 44 H (6-23) mg/dl Creatinine 1.16 (0.6-1.2) mg/dl Est Cr Clr Drug Dosing 43.7 ml/min Est GFR ( Amer) 55.2 ml/min Est GFR (Non-Af Amer) 47.7 ml/min BUN/Creatinine Ratio 37.9 H (10-20) Glucose 97 (70-99(Fasting)) mg/dl Calcium 8.6 (8.5-10.1) mg/dl Phosphorus 3.3 (2.5-4.9) mg/dl Magnesium 2.1 (1.7-2.4) mg/dl Medications Administered Current Inpatient Medications Acetaminophen (Acetaminophen 325 Mg Tab) 650 mg PO Q4H PRN PRN Reason: Pain or Fever Stop: 12/16/22 02:15 Last Admin: 11/18/22 10:47 Dose: 650 mg Albuterol (Albut/Ipratrop 3mg/0.5mg Neb 3 Ml Vial) 3 ml INH Q4H PRN; Protocol PRN Reason: Shortness Of Breath Or Wheezing Stop: 12/16/22 02:15 Lipase/Protease/Amylase (Pancreaze (Lipase 10,500u) Cap) 4 cap PO AC CATE Stop: 12/16/22 16:29 Last Admin: 11/20/22 08:55 Dose: 4 cap Cyanocobalamin (Cyanocobalamin (B-12) 500 Mcg Tablet) 1,000 mcg PO QAM CATE Stop: 12/16/22 08:59 Last Admin: 11/20/22 08:57 Dose: 1,000 mcg Desipramine HCl (Desipramine Hcl 50 Mg Tab) 50 mg PO BID CATE Stop: 12/16/22 02:15 Last Admin: 11/20/22 08:57 Dose: 50 mg Diphenhydramine HCl (Diphenhydramine Capsule 25 Mg Cap) 25 mg PO TID PRN PRN Reason: pruritus Stop: 12/19/22 13:13 Last Admin: 11/19/22 14:55 Dose: 25 mg Duloxetine HCl (Duloxetine Hcl 20 Mg Cap) 20 mg PO HS [facility] Stop: 12/16/22 20:59 Last Admin: 11/19/22 21:58 Dose: 20 mg Enoxaparin Sodium (Enoxaparin Inj 40 Mg/0.4 Ml Syr) 40 mg SQ QAM [facility] Stop: 12/16/22 08:59 Last Admin: 11/20/22 08:56 Dose: 40 mg Escitalopram Oxalate (Escitalopram Oxalate 20 Mg Tab) 20 mg PO QAM [facility] Stop: 12/16/22 08:59 Last Admin: 11/20/22 08:57 Dose: 20 mg Fluticasone Furoate (Fluticasone Furoate 100mcg 14 Puffs/Inhaler) 1 puffs INH DAILY [facility] Stop: 12/16/22 08:59 Last Admin: 11/20/22 08:58 Dose: 1 puffs Heparin Sodium (Porcine) (Heparin 100 Unit/Ml 5ml Flush) 5 ml FLUSH PRN PRN PRN Reason: Flush Stop: 12/16/22 02:40 Hydrocortisone (Hydrocortisone 2.5% Cr 30 Gm Tube) 1 appln EXT BID PRN PRN Reason: itchy rash Stop: 12/17/22 06:48 Last Admin: 11/20/22 08:59 Dose: 1 appln Ertapenem 1,000 mg/ Syringe 10 mls @ 2 mls/min IV Q24H [facility]; Protocol Stop: 11/26/22 05:59 Last Admin: 11/20/22 05:37 Dose: 2 mls/min Lactobacillus Acidophilus (Advanced Probiotic 1250 Mg Capsule) 2 cap PO DAILY [facility] Stop: 12/19/22 08:59 Last Admin: 11/20/22 08:57 Dose: 2 cap Lamotrigine (Lamotrigine 25 Mg Tab) 25 mg PO BID [facility] Stop: 12/16/22 02:15 Last Admin: 11/20/22 08:57 Dose: 25 mg Levothyroxine Sodium (Levothyroxine Sodium 88 Mcg Tablet) 88 mcg PO DAILYBB [facility] Stop: 12/16/22 06:29 Last Admin: 11/20/22 05:37 Dose: 88 mcg Lidocaine (Lidocaine 5% 1 Patch) 1 patch TD QAM [facility] Stop: 12/17/22 16:29 Last Admin: 11/20/22 08:59 Dose: Not Given Lorazepam (Lorazepam 0.5 Mg Tab) 0.5 mg PO BID PRN PRN Reason: Anxiety Stop: 12/16/22 02:15 Miscellaneous (Welchol~Order Awaiting Action) 1 each N/A QS [facility] Stop: 12/16/22 07:59 Last Admin: 11/20/22 08:59 Dose: Not Given Miscellaneous (Remove Lidoderm Patch) 1 each N/A DAILY@2100 [facility] Stop: 12/17/22 20:59 Last Admin: 11/19/22 22:00 Dose: 1 each Montelukast Sodium (Montelukast Sodium 10 Mg Tablet) 10 mg PO HS [facility] Stop: 12/16/22 20:59 Last Admin: 11/19/22 21:59 Dose: 10 mg Multivitamins/Minerals (Cerovite Adv Formula Tab) 1 tab PO DAILY [facility] Stop: 12/16/22 08:59 Last Admin: 11/20/22 08:57 Dose: 1 tab Ondansetron HCl (Ondansetron Inj 2 Mg/Ml 2 Ml Vial) 4 mg IV Q4H PRN PRN Reason: Nausea Stop: 12/16/22 02:15 Oxycodone/Acetaminophen (Oxycodone/Acetaminophen 5mg/325mg Tab) 1 tab PO Q6H PRN PRN Reason: Pain Stop: 11/30/22 02:15 Last Admin: 11/20/22 06:08 Dose: 1 tab Pantoprazole Sodium (Pantoprazole 40 Mg Tab) 40 mg PO BID [facility] Stop: 12/16/22 08:59 Last Admin: 11/20/22 08:57 Dose: 40 mg Potassium Chloride (Potassium Chloride 10 Meq Tabcr) 10 meq PO TID CATE Stop: 12/16/22 08:59 Last Admin: 11/20/22 09:04 Dose: 10 meq Pregabalin (Pregabalin 100 Mg Cap) 100 mg PO TID [facility] Stop: 12/16/22 08:59 Last Admin: 11/20/22 09:04 Dose: 100 mg Risperidone (Risperidone 2 Mg Tablet) 2 mg PO HS CATE Stop: 12/16/22 20:59 Last Admin: 11/19/22 22:00 Dose: 2 mg Ropinirole HCl (Ropinirole Hcl 0.25 Mg Tablet) 0.5 mg PO HS CATE Stop: 12/16/22 20:59 Last Admin: 11/19/22 22:00 Dose: 0.5 mg Rosuvastatin Calcium (Rosuvastatin Calcium 10 Mg Tab) 10 mg PO DAILY [facility] Stop: 12/16/22 08:59 Last Admin: 11/20/22 08:57 Dose: 10 mg Tamsulosin HCl (Tamsulosin Hcl 0.4 Mg Cap) 0.4 mg PO DAILY [facility] Stop: 12/16/22 08:59 Last Admin: 11/20/22 08:58 Dose: 0.4 mg Umeclidinium/Vilanterol (Umeclidinium/Vilanterol 62.5/25mcg 7 Puffs/Inhaler) 1 puffs INH DAILY [facility] Stop: 12/16/22 08:59 Last Admin: 11/20/22 08:58 Dose: 1 puffs Zinc Acetate/Diphenhydramine (Diphenhydramine 2%/Zinc 0.1% Cream 28gm Tube) 1 appln EXT Q8H PRN PRN Reason: Itching Stop: 12/17/22 18:45 Last Admin: 11/19/22 08:33 Dose: 1 appln
--- NOTE | 2022-11-20 10:59 | Discharge Summary ---
Date of Service November 20, 2022 Admission HPI Per Admitting Provider History obtained from patient and records. Medical history significant for chronic diastolic heart failure (EF 55 to 60%, TTE 2021), LARRY, pulmonary hypertension, asthma, history of gastric bypass, hyperparathyroidism as per records, ankylosing spondylitis as per records, recurrent UTIs (ESBL E. coli infection), urolithiasis, history pancreatic insufficiency/malabsorption as per records, mood/anxiety disorder, chronic pain/neuropathy. Last confinement May 2022 for complicated UTI. Pansensitive E. coli on urine CS. Patient discharged on Augmentin course. Few days history of increasing weakness and dizziness described as lightheadedness. No headache. Patient falling at home from weakness. No syncope, no chest pain, no SOB. Appetite okay. Denies abdominal/flank pain, diarrhea, dysuria, hematuria, fever, chills. Meropenem administered at the ER for possible UTI. 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 Admission Exam Per Admitting Provider GENERAL: Comfortable, slightly anxious, obese, no respiratory distress SKIN: Normal color, warm HEENT: Bespectacled, pink palpebral conjunctivae, no ptosis, dry buccal mucosa NECK : Supple, short, no tenderness CHEST : Decreased breath sounds, no tenderness HEART : RRR, systolic murmur ABDOMEN: Some distention, nontender EXTREMITIES : Bilateral LE swelling, no LE tenderness NEUROLOGIC : Coherent, no facial asymmetry, no other gross focality Principal Diagnosis ESBL E.coli UTI JAVI Hypokalemia Discharge Exam General- elderly F sitting up in chair, in No acute distress Head- atraumatic Eyes- PERRL, EOMI, ENT- oropharynx clear Neck- supple, no JVD Lungs- clear to auscultation Heart- regular rhythm; no murmur Abdomen- normal bowel sounds, soft, nontender Extremities- no calf tenderness Neuro- alert, oriented x 3; PERRL, EOMI; no facial palsy; no dysarthria, moves extremities Skin- warm & dry Discharge Data Allergies Allergy/AdvReac Type Severity Reaction Status Date / Time bethanechol Allergy Intermediate RASH, Verified 11/15/22 22:07 "FEELS FUNNY" Cephalosporins Allergy Intermediate RASH, Verified 11/15/22 22:07 DIARRHEA ertapenem Allergy Intermediate RASH Verified 11/15/22 22:07 levofloxacin Allergy Intermediate RASH,TURNED Verified 11/15/22 22:07 RED Sulfa (Sulfonamide Allergy Intermediate Generalized Verified 11/15/22 22:07 Antibiotics) Rash clindamycin Allergy Unknown Unknown Verified 11/15/22 22:07 dipyridamole Allergy Unknown UNKNOWN Verified 11/15/22 22:07 droperidol Allergy Unknown Unknown Verified 11/15/22 22:07 promethazine Allergy Unknown UNKNOWN Verified 11/15/22 22:07 tobramycin Allergy Unknown UNKNOWN Verified 11/15/22 22:07 aspirin AdvReac Severe BLEEDING Verified 11/15/22 22:07 doxycycline AdvReac Severe severe Verified 11/15/22 22:07 Diarrhea, nausea metolazone AdvReac Severe ELECTROLYTE Verified 11/15/22 22:07 ISSUES bupropion AdvReac Intermediate NERVOUS Verified 11/15/22 22:07 REACTION cephalexin AdvReac Intermediate GI SYMPTOMS Verified 11/15/22 22:07 morphine AdvReac Intermediate NERVOUS Verified 11/15/22 22:07 REACTION TO IT nitrofurantoin AdvReac Intermediate Vomiting Verified 11/15/22 22:07 [From Macrobid] prochlorperazine AdvReac Intermediate NERVOUS Verified 11/15/22 22:07 REACTION tedizolid AdvReac Intermediate GI SYMPTOMS Verified 11/15/22 22:07 Consultations 11/15/22 23:39 ED Decision to Admit Stat Ordered Studies 11/15/22 21:37 CT cervical spine wo con Stat FINDINGS: No fractures. No subluxation. Prevertebral soft tissues and the C1-C2 interval are intact. No pneumothorax. A right-sided central venous catheter is partially visualized. IMPRESSION: No fractures within the cervical spine. CT head/brain wo con Stat Findings: Partial opacification of the right maxillary sinus. The calvarium and skull base are intact. The ventricles and sulci are within normal limits. There is no mass, hematoma, midline shift, or acute infarct. Impression: No acute intracranial abnormality. 11/17/22 16:27 US Renal Bladder [US renal/blad retro comp] Routine FINDINGS: Kidneys: The right kidney is atrophic and echogenic. There is a mild cortical atrophy of the left kidney. The right kidney measures 5.6 x 2.6 x 2.4 cm and the left kidney measures 8.5 x 5.0 x 4.4 cm. There is no hydronephrosis. Nonobstructing left renal calculi measuring up to 8 mm. A 1 1.8 cyst is noted on the right. There is no sonographic evidence of contour deforming renal mass lesion. No perinephric fluid is identified. Bladder: The bladder wall appears mildly thickened. Ureteral jets were not seen. IMPRESSION: 1. The right kidney is atrophic and echogenic. 2. No hydronephrosis. 3. The bladder wall appears mildly thickened. Correlate with clinical findings and urinalysis. 4. Left-sided renal calculi are noted. Hospital Course (1) Weakness: Ambulatory dysfunction Mostly related to UTI CT head showed no acute intracranial abnormality. Continue PT/OT eval Fall precaution Clinically improved Complicated UTI Urine cx grew ESBL Continue IV ertapenem to complete 7 days course (currently Day # 5 of 7) Continue monitor Renal stones Hx of multiples renal stones Renal u/s showed no hydronephrosis. Left-sided renal calculi are noted. Follows with [facility] urology Continue pain control Pain improved JAVI - resolved Creatinine increased to 1.8 then down to 1.3 , and down to 1.1 today (11/19/2022) Received gentle IVF Continue to hold Torsemide Avoid nephrotoxic agents Continue monitor BMP Discussed with [facility] nephrology Dr. Iesha Roberts (pt follows w/ [facility] nephro) - Patient should follow-up with nephrology and have BMP checked on Thursday or Thursday (pls send lab results to Dr. Loja). Patient will be contacted about the follow-up appointment. Peripheral neuropathy Lamictal recently added by neurology Continue pregabalin and duloxetine Chronic diastolic heart failure No sign of volume overload Continue monitor Hypokalemia Potassium 3.6 today Continue K supplement Continue to monitor LARRY Asthma stable Total Time Total Time Spent Total Time Spent (In Minutes): 40 Discharge Plan Discharge Items Patient Disposition[facility] Reason For Visit: HYPOKALEMIA, COMP UTI Discharge Diagnosis: ESBL E.coli UTI JAVI Hypokalemia Activity: Per Instructions section Non-emergency contact: Primary Care Provider and Pump And B[employer] Operator Call non-emergency contact if: you have any medication questions and your symptoms worsen Follow-up/Referrals: Ronnell,Frederick, DO [Primary Care Provider] - Diet: Heart Healthy Fluids: 2000ml (8 cups) Addtl Attending Provider Instructions: Follow-up with your primary care doctor, and doctor of nurse anesthesia practice. Finish IV antibiotic treatment with ertapenem, 2 more days of treatment. Recommend to take probiotics for the next few days. As discussed, have blood work, BMP, done on Thursday or Thursday and have the results to be sent to [facility] physician group nephrologyDr. Loja. Nephrology office will also contact you about the upcoming appointment. Do not take torsemide for next 1 to 2 days. Monitor your blood pressure. Discuss further with your primary care doctor and/or nephrology, if your torsemide dose needs to be adjusted. Pending Studies at Discharge: No Stand-Alone Forms: [facility] Skilled Items Patient informed of condition?: Yes DNR: No Discharge Level of Care: Other Communicable Disease: No Discharge Prognosis: Improving Lines: None Urinary Catheter: No Medications and DC Order Prescriptions: New Advanced Probiotic 625 mg (10 billion cell) Capsule 2 cap PO DAILY 5 Days Qty: 10 0RF Continued colesevelam [WelChol] 625 mg tablet 625 mg PO TID Patient Comments: before meals , morning , noon and night Rx Instructions: PER [facility]-TAKE 1250 MG BIDM. montelukast [Singulair] 10 mg tablet 10 mg PO HS Prilosec OTC 20 mg tablet,delayed release (DR/EC) 20 mg PO BID mecobalamin (vitamin B12) 1,000 mcg tablet,disintegrating 1,000 mcg PO QAM Rx Instructions: place tablet under tongue and allow to dissolve for at least30 secs before swallowing desipramine 50 mg tablet 50 mg PO BID Rx Instructions: PER [facility]--TAKE 25 MG TID, THEN 50 AT HS. pregabalin 100 mg capsule 100 mg PO TID Qty: 90 2RF duloxetine [Cymbalta] 20 mg capsule,delayed release(DR/EC) 20 mg PO HS Qty: 30 5RF calcium carbonate [Calcium 600] 600 mg calcium (1,500 mg) tablet 1,200 mg PO TID Qty: 180 5RF calcitriol 0.5 mcg capsule 0.5 mcg PO BID Qty: 60 5RF Trelegy Ellipta 100-62.5-25 mcg blister with device 1 inh inhalation QAM Qty: 60 5RF Rx Instructions: USE ONE INHALATION EVERY MORNING albuterol sulfate 90 mcg/actuation aerosol powdr breath activated 2 inh INH Q6H PRN (Reason: Shortness Of Breath Or Wheezing) Qty: 1 3RF lamotrigine 25 mg tablet 25 mg PO BID Qty: 60 3RF ipratropium-albuterol 0.5 mg-3 mg(2.5 mg base)/3 mL Solution For Nebulization 3 ml INHALATION Q4H PRN (Reason: Shortness Of Breath Or Wheezing) Creon 24,000-76,000 -120,000 unit Capsule,Delayed Release(Dr/Ec) 4 cap PO TID Patient Comments: before meals potassium chloride 10 mEq capsule, extended release 10 meq PO TID torsemide 20 mg tablet 40 mg PO BID valacyclovir 500 mg tablet 500 mg PO DAILY ropinirole 0.5 mg tablet 0.5 mg PO HS escitalopram oxalate 20 mg tablet 20 mg PO QAM rosuvastatin 10 mg tablet 10 mg PO DAILY metolazone [Zaroxolyn] 2.5 mg Tablet 2.5 mg PO DAILY PRN (Reason: WT >199 LBS.) oxycodone-acetaminophen [Percocet] 5-325 mg Tablet 1 tab PO Q6H PRN (Reason: Pain) tamsulosin [Flomax] 0.4 mg Capsule 0.4 mg PO DAILY cholecalciferol (vitamin D3) [Vitamin D3] 25 mcg (1,000 unit) Capsule 50 mcg PO DAILY Centrum Silver Tablet 1 tab PO DAILY risperidone 2 mg Tablet 2 mg PO HS levothyroxine 88 mcg tablet 88 mcg PO QAM lorazepam 0.5 mg tablet 0.5 mg PO BID PRN (Reason: Anxiety) Discharge Orders: Discharge Order (Routine); Ordered 11/20/22 Ordered By: Kenny Easley Admission Data Admit Date/Time: 11/16/22 01:07 Attending Provider: Kenny Easley Admit Provider: Austin Cummings Primary Care Provider: Frederick Reynaga [facility]: Austin Cummings ; [facility] ; Chen Swift
== END 2022-11-20 14:10 | DRG 690 ==
LOC: ED 21:24 → 2W 11-16 01:07 → SUATTDRO 11-16 01:07 → 2W 11-16 01:58

== ENCOUNTER 2022-12-07 14:00 | Inpatient (IN) ==
[2022-12-07] MEDS ORDERED: SODIUM CHLORIDE 0.9% 500 ML IV ONE (14:17)
--- NOTE | 2022-12-07 14:27 | Emergency Department Note ---
Impression & Plan Near syncope, Acute UTI (urinary tract infection), Acute hypotension, Contusion of left shoulder ED Provider Note NAME: JOSHUA ZAVALA AGE: 72 SEX: F : 1950 ARRIVES VIA: Ambulance INFORMANT: Patient, ED PROVIDER(S): Boby Norton DO CHIEF COMPLAINT: Syncope HPI: The patient is a 72-year-old female who presented to the emergency d [facility] by ambulance for evaluation of syncope. Patient states while she was at home earlier today she had an episode where she became very dizzy and lightheaded. She is unsure if she completely passed out but she fell to the ground injuring her left shoulder. The patient was able to stand with assistance. Initially the patient was evaluated by the prehospital personnel. She did not wish to come the hospital and was feeling better. She refused care at the time. The patient had another episode where she became very lightheaded and dizzy. She called 911 again but was brought to the emergency department. Reportedly the patient had hypotension with a systolic blood pressure of 70. Th e patient denies having any back pain. She denies have any vomiting. She states that she feels like she has generalized weakness. She denies having any rectal bleeding. She was recently admitted to our facility for urinary tract infection. She states that she finished the course of the antibiotic. ROS: See above HPI for pertinent positives & negatives. A total of 10 systems reviewed and were otherwise negative. PAST MEDICAL HISTORY: See Below PAST SURGICAL HISTORY: See Below FAMILY HISTORY: See Below SOCIAL HISTORY: See Below HOME MEDICATIONS: See Below ALLERGIES: See Below VITALS: See Below PHYSICAL EXAMINATION: GENERAL: Patient is awake and alert. She does not appear to be uncomfortable or in pain. EYES: The conjunctivae are clear. The pupils are round and reactive. EARS, NOSE, MOUTH AND THROAT: The nose is without any evidence of any deformity. Mucous membranes are dry. NECK: The neck is nontender and supple. RESPIRATORY: Splinting respirations were noted. There is no tachypnea or conversational dyspnea. Rales were noted in the right base. CARDIOVASCULAR: Regular rate and rhythm noted there no murmurs rubs or gallops normal S1 normal S2. GASTROINTESTINAL: The abdomen is soft. The abdomen is diffusely tender. There is no guarding rigidity. MUSCULOSKELETAL/EXTREMITIES: There is no evidence of gross deformity full range of motion is noted in the hips and shoulders. SKIN: Skin is warm and dry. There is no significant pedal edema or calf tenderness elicited. NEUROLOGIC: Patient is awake alert and oriented x3. Strength is symmetric. There is no facial droop. Speech was clear. MEDICAL DECISION MAKING: Patient is a 72-year-old female who presented to the emergency department by ambulance. Initially she refused transport earlier today but had another near syncopal fall where she injured her left shoulder. The patient presented to the emergency department with reported hypotension. She was treated with IV fluids in the emergency department. The patient was treated with IV antibiotics for presumed urinary tract infection. She was recently discharged in our facility for similar presentation. On reevaluation the patient was feeling somewhat improved but still was not comfortable with home outpatient management given the way she was still feeling and given what happened earlier in the day. For this reason I discussed her condition with the on-call [facility] Hospitalist. They have agreed to evaluate the patient in the emergency department for further management and disposition. Triage Nursing notes reviewed. Prior medical records reviewed Vital Signs: reviewed and remarkable for initial hypotension. Differential diagnosis: Vasovagal event, dehydration, infection, hypoglycemia, electrolyte abnormalities, cardiac sources, intracerebral event, pulmonary embolism, seizur e, toxicologic, neurologic, as well as other pathologies. ER treatment provided: See below Diagnostics interpreted by me: ECG: EKG was obtained in the emergency department. My interpretation is sinus bradycardia 57 bpm. First-degree AV block was noted. LVH was suggested by voltage criteria. Nonspecific ST segment depressions were noted. This was compared to a tracing from November 15, 2022. No significant changes were noted. Cardiac Monitoring: An order was placed for continuous cardiac monitoring. The monitor shows a rate of 62 bpm with sinus rhythm Laboratory studies: As stated above and show below. Imaging studies: See below. Radiographic imaging was reviewed by myself Consultation(s): I discussed this case with Trish who is on-call for the [facility] Hospitalist group. Past Med/Surg History Medical History Asthma Atherosclerosis of both lower extremities Chronic diastolic (congestive) heart failure Hospitalized March 2022 Follows w/[facility] (Dr. Otoole), EF 55-60% Chronic kidney disease stage 3b Chronic sinusitis Chronic urinary tract infection Chronic venous insufficiency COPD (chronic obstructive pulmonary disease) Depression GERD without esophagitis H/O concussion "a long time ago" History of anemia History of esophageal dilatation Hyperlipidemia per records Hypothyroidism Incisional hernia Abdominal (from multiple surgeries/feeding tube) Kidney stones Lumbar transverse process fracture Pt reports lower back detioriating - can't lie flat/sleep on a chair MRSA (methicillin resistant staph aureus) culture positive History of Left wrist Had 3 nasal swab and all negative (through [facility] per pt) Obesity Osteoporosis Pancreatic insufficiency chronic pancreatitis Peripheral neuropathy Port-A-Cath in place right side due to poor vascular access PUD (peptic ulcer disease) Had feeding tube for 28 years (has been removed for 11 years) Pulmonary hypertension mild per 07/[address] report PVC (premature ventricular contraction) Reactive hypoglycemia Secondary hyperparathyroidism Sepsis 05/2020 @ [facility], urosepsis 2/2 obstructing renal stone, S/P cysto/stent and ESWL Short bowel syndrome Sleep apnea complex sleep apnea, BIPAP *has not used it, can't get used to wearing a mask SOB (shortness of breath) on exertion Trouble swallowing hx egd with dilation / "narrowing" Urinary leakage Wrist injury Scar tissue surrounding remote wrist ORIF several years ago resulting in intermittent inflammation per pt Surgical History H/O shoulder surgery RT arthroscopy 05/28/2021: LMA#4 atraumatic x 1 + PNB. Anesthesia postop pro jose note: "Pt denies SOB at this time. Block is functioning well. Vital signs stable and appropriate. Oxygenating well considering block placement and her comorbidities. Plan to discharge home with IS." History of appendectomy History of cardiac cath 08/2019 ([facility]): essentially normal coronary arteries angiographically, + luminal irregularities. no stents History of cholecystectomy History of colonoscopy History of cystoscopy multiple History of esophagogastroduodenoscopy (EGD) History of gastrointestinal surgery multiple History of joint replacement Rt thumb History of knee replacement procedure of right knee History of open reduction and internal fixation (ORIF) procedure left wrist + manipulation (01/2018) and I&D (10/2019) History of partial gastrectomy History of prior ablation treatment Right LE in January 2020 and left LE 04/18/20 History of sinus surgery History of tonsillectomy and adenoidectomy History of total abdominal hysterectomy and bilateral salpingo-oophorectomy S/P right rotator cuff repair S/P ureteral stent placement Status post laser lithotripsy of ureteral calculus most recent litho nov 2021 04/29/2021: LMA#4 atraumatic x 1. [facility]. 03/01/2021: LMA#4 atraumatic x 1. [facility] 02/04/2021: LMA#4 atraumatic x 1. [facility]. 07/04/2020: LMA#4 atraumatic x 1. [facility]. No issues per anesthesia postop progress notes. Family History Mother Family history of diabetes mellitus Sister Family history of diabetes mellitus Family history of breast cancer Father Esophageal cancer Other Family history non-contributory No family history of adverse response to anesthesia Social History Smoking Status: Never smoker Second Hand Exposure: Yes ( A CHILD); Hx Alcohol Use: No Hx Substance Use: No Preferred Language: Persian Communication Ability: Effective Visual Impairment: No Limitations Tankage Grinder Operator Required: No Beliefs That Will Affect Care: None marital status: Single Current Living Situation: Alone Current Living Situation Comment: APARTMENT COMPLEX>FRIENDS ALL AROUND How many Children do You have: 0 Feels Safe at Home: Yes Assistive Devices: Walker Allergies Allergies Allergy/AdvReac Type Severity Reaction Status Date / Time bethanechol Allergy Intermediate RASH, Verified 12/07/22 15:30 "FEELS FUNNY" Cephalosporins Allergy Intermediate RASH, Verified 12/07/22 15:30 DIARRHEA ertapenem Allergy Intermediate RASH Verified 12/07/22 15:30 levofloxacin Allergy Intermediate RASH,TURNED Verified 12/07/22 15:30 RED Sulfa (Sulfonamide Allergy Intermediate Generalized Verified 12/07/22 15:30 Antibiotics) Rash clindamycin Allergy Unknown Unknown Verified 12/07/22 15:30 dipyridamole Allergy Unknown UNKNOWN Verified 12/07/22 15:30 droperidol Allergy Unknown Unknown Verified 12/07/22 15:30 promethazine Allergy Unknown UNKNOWN Verified 12/07/22 15:30 tobramycin Allergy Unknown UNKNOWN Verified 12/07/22 15:30 aspirin AdvReac Severe BLEEDING Verified 12/07/22 15:30 doxycycline AdvReac Severe severe Verified 12/07/22 15:30 Diarrhea, nausea metolazone AdvReac Severe ELECTROLYTE Verified 12/07/22 15:30 ISSUES bupropion AdvReac Intermediate NERVOUS Verified 12/07/22 15:30 REACTION cephalexin AdvReac Intermediate GI SYMPTOMS Verified 12/07/22 15:30 morphine AdvReac Intermediate NERVOUS Verified 12/07/22 15:30 REACTION TO IT nitrofurantoin AdvReac Intermediate Vomiting Verified 12/07/22 15:30 [From Macrobid] prochlorperazine AdvReac Intermediate NERVOUS Verified 12/07/22 15:30 REACTION tedizolid AdvReac Intermediate GI SYMPTOMS Verified 12/07/22 15:30 Home Meds Home Medications Medication Instructions Recorded Confirmed colesevelam 625 mg tablet (WelChol) 625 mg PO TID 06/17/18 12/07/22 montelukast 10 mg tablet 10 mg PO HS 06/17/18 12/07/22 (Singulair) ipratropium 0.5 mg-albuterol 3 mg 3 ml inhalation Q4H PRN Shortness 05/05/19 12/07/22 (2.5 mg base)/3 mL nebulization Of Breath Or Wheezing soln evqdmp-jkhikbvm-zlcgfqg 4 cap PO TID 05/05/19 12/07/22 24,000-76,000-120,000 unit capsule,delayed rel (Creon) omeprazole magnesium 20 mg 20 mg PO BID 05/17/19 12/07/22 tablet,delayed release (Prilosec OTC) mecobalamin (vitamin B12) 1,000 1,000 mcg PO QAM 01/21/21 12/07/22 mcg disintegrating tablet,sublingual risperidone 2 mg tablet 2 mg PO HS 02/27/21 12/07/22 potassium chloride 10 mEq 10 meq PO TID 12/04/21 12/07/22 capsule,extended release desipramine 50 mg tablet 50 mg PO BID 01/23/22 12/07/22 levothyroxine 88 mcg tablet 88 mcg PO QAM 05/19/22 12/07/22 lorazepam 0.5 mg tablet 0.5 mg PO BID PRN Anxiety 11/06/22 12/07/22 cholecalciferol (vitamin D3) 25 50 mcg PO DAILY 11/15/22 12/07/22 mcg (1,000 unit) capsule (Vitamin D3) escitalopram oxalate 20 mg tablet 20 mg PO QAM 11/15/22 12/07/22 metolazone 2.5 mg tablet 2.5 mg PO DAILY PRN WT >199 LBS. 11/15/22 12/07/22 yeioeszdzjpw-qiglpxsh-xjhbny tablet 1 tab PO DAILY 11/15/22 12/07/22 oxycodone-acetaminophen 5 mg-325 1 tab PO Q6H PRN Pain 11/15/22 12/07/22 mg tablet (Percocet) ropinirole 0.5 mg tablet 0.5 mg PO HS 11/15/22 12/07/22 rosuvastatin 10 mg tablet 10 mg PO DAILY 11/15/22 12/07/22 tamsulosin 0.4 mg capsule (Flomax) 0.4 mg PO DAILY 11/15/22 12/07/22 torsemide 20 mg tablet 40 mg PO BID 11/15/22 12/07/22 valacyclovir 500 mg tablet 500 mg PO DAILY 11/15/22 12/07/22 Previous Rx's Medication Instructions Recorded calcitriol 0.5 mcg capsule 0.5 mcg PO BID #60 caps 07/02/22 calcium carbonate 600 mg calcium 1,200 mg PO TID #180 tabs 07/02/22 (1,500 mg) tablet (Calcium) albuterol sulfate 90 mcg/actuation 2 inh inhalation Q6H PRN Shortness 07/31/22 breath activated powder inhaler Of Breath Or Wheezing #1 ea fluticasone fur. 100 mcg-umeclid 1 inh inhalation QAM #60 ea 07/31/22 62.5 mcg-vilant 25 mcg inhalat.powder (Trelegy Ellipta) pregabalin 100 mg capsule 100 mg PO TID #90 caps 10/01/22 duloxetine 20 mg capsule,delayed 20 mg PO HS #30 caps 10/29/22 release (Cymbalta) lamotrigine 25 mg tablet 25 mg PO BID #60 tabs 11/06/22 Results & Data (ED) Vital Signs Vital Signs - 24 hr 12/07/22 14:36 12/07/22 14:36 12/07/22 15:06 Temperature 35.8 C L Temperature Source Temporal Artery Scan Pulse Rate - Lying Pulse Rate - Sitting Pulse Rate 59 L Pulse Rate [Right Finger] 61 Pulse Rhythm Regular Pulse Strength Normal Respiratory Rate 18 16 Respiratory Effort / Characteristics Non-Labored Respiratory Depth Normal Respiratory Pattern Regular Blood Pressure - Lying Blood Pressure - Sitting Blood Pressure 111/67 Blood Pressure [Right Arm] 119/72 Blood Pressure Mean 81 Blood Pressure Mean [Right Arm] 87 Blood Pressure Position Lying Pulse Oximetry 98 97 Oxygen Delivery Method Room Air Room Air Room Air Sepsis Recent Fever Within 48 Hours No Sepsis New/Unexplained Change in Mental Status No Sepsis Action Taken by Nursing No Action Required 12/07/22 15:55 12/07/22 16:32 12/07/22 16:23 Temperature Temperature Source Pulse Rate - Lying 59 L Pulse Rate - Sitting 59 L Pulse Rate 62 Pulse Rate [Right Finger] 59 L Pulse Rhythm Pulse Strength Respiratory Rate 16 Respiratory Effort / Characteristics Respiratory Depth Respiratory Pattern Blood Pressure - Lying 104/66 Blood Pressure - Sitting 122/65 Blood Pressure Blood Pressure [Right Arm] 116/73 Blood Pressure Mean Blood Pressure Mean [Right Arm] 87 Blood Pressure Position Pulse Oximetry Oxygen Delivery Method Sepsis Recent Fever Within 48 Hours Sepsis New/Unexplained Change in Mental Status Sepsis Action Taken by Correction Medications Current Medication List: was personally reviewed by me Laboratory Data Attestation: I reviewed the patient's lab results. 12/07/22 14:22 12/07/22 14:22 Lab Results 12/07/22 12/07/22 12/07/22 Range/Units 14:22 14:22 14:22 WBC 6.59 (4.8-10.8) K/ul RBC 3.73 L (4.20-5.40) M/uL Hgb 11.0 L (12.0-16.0) g/dl Hct 32.9 L (37.0-47.0) % MCV 88.2 (80.0-100.0) fL MCH 29.5 (25.0-34.0) pg MCHC 33.4 (32.0-36.0) g/dL RDW Std Deviation 47.8 H (36.4-46.3) fL RDW Coeff of David 14.9 H (11.5-14.5) % Plt Count 177 (130-400) K/uL MPV 10.9 (9.4-12.4) fL Immature Gran % (Auto) 0.5 % Neut % (Auto) 60.8 % Lymph % (Auto) 22.6 % [place] % (Auto) 9.4 % Eos % (Auto) 5.8 % Baso % (Auto) 0.9 % Neut # (Auto) 4.01 (1.40-6.50) K/uL Lymph # (Auto) 1.49 (1.2-3.4) K/uL [place] # (Auto) 0.62 H (0.11-0.59) K/uL Eos # (Auto) 0.38 (0-0.50) K/uL Baso # (Auto) 0.06 (0-0.2) K/uL Immature Gran # (Auto) 0.03 (0.01-0.20) K/uL PT 11.3 (9.0-12.0) Seconds INR 1.1 (0.9-1.1) APTT 36.7 H (21.0-31.0) Seconds PTT Ratio 1.3 VBG pH (7.36-7.41) VBG pCO2 (38-50) mmHg VBG pO2 mmHg VBG HCO3 mmol/L VBG O2 Saturation % VBG Base Excess mEq/L Sodium 137 (136-145) mmol/L Potassium 3.2 L (3.5-5.1) mmol/L Chloride 102 (98-107) mmol/L Carbon Dioxide 28 (21-32) mmol/L Anion Gap 7 (3-11) BUN 50 H (6-23) mg/dl Creatinine 1.43 H (0.6-1.2) mg/dl Est Cr Clr Drug Dosing 37.1 ml/min Est GFR ( Amer) 42.9 ml/min Est GFR (Non-Af Amer) 37.0 ml/min BUN/Creatinine Ratio 35.0 H (10-20) Glucose 109 H (70-99(Fasting)) mg/dl Lactate (0.4-2.0) mmol/L Calcium 9.1 (8.5-10.1) mg/dl Magnesium 2.0 (1.7-2.4) mg/dl Total Bilirubin 0.5 (0.2-1.0) mg/dl Direct Bilirubin 0.1 (0-0.2) mg/dl AST 22 (13-39) U/L ALT 18 (7-52) U/L Alkaline Phosphatase 80 (34-104) U/L Troponin I High Sens 12.9 (0-14) pg/ml Total Protein 6.3 (6.0-8.3) gm/dl Albumin 3.7 (3.4-5.0) gm/dl Procalcitonin (0-0.5) ng/ml Urine Color Urine Appearance (Clear) Urine pH (4.5-7.5) Ur Specific Zirconia (1.000-1.030) Urine Protein (Negative) Urine Glucose (UA) (Negative) Urine Ketones (Negative) Urine Blood (Negative) Urine Nitrite (Negative) Urine Bilirubin (Negative) Urine Urobilinogen (Negative) Ur Leukocyte Esterase (Negative) Urine WBC (Auto) (0-5) /hpf Urine RBC (Auto) (0-4) /hpf U Hyaline Cast (Auto) (0-5) /lpf U Epithel Cells (Auto) (0-5) /lpf Urine Bacteria (Auto) (Negative) 12/07/22 12/07/22 12/07/22 Range/Units 14:22 14:46 14:46 WBC (4.8-10.8) K/ul RBC (4.20-5.40) M/uL Hgb (12.0-16.0) g/dl Hct (37.0-47.0) % MCV (80.0-100.0) fL MCH (25.0-34.0) pg MCHC (32.0-36.0) g/dL RDW Std Deviation (36.4-46.3) fL RDW Coeff of David (11.5-14.5) % Plt Count (130-400) K/uL MPV (9.4-12.4) fL Immature Gran % (Auto) % Neut % (Auto) % Lymph % (Auto) % [place] % (Auto) % Eos % (Auto) % Baso % (Auto) % Neut # (Auto) (1.40-6.50) K/uL Lymph # (Auto) (1.2-3.4) K/uL [place] # (Auto) (0.11-0.59) K/uL Eos # (Auto) (0-0.50) K/uL Baso # (Auto) (0-0.2) K/uL Immature Gran # (Auto) (0.01-0.20) K/uL PT (9.0-12.0) Seconds INR (0.9-1.1) APTT (21.0-31.0) Seconds PTT Ratio VBG pH 7.37 (7.36-7.41) VBG pCO2 52 H (38-50) mmHg VBG pO2 44 mmHg VBG HCO3 30 mmol/L VBG O2 Saturation 73.5 % VBG Base Excess 3.6 mEq/L Sodium (136-145) mmol/L Potassium (3.5-5.1) mmol/L Chloride (98-107) mmol/L Carbon Dioxide (21-32) mmol/L Anion Gap (3-11) BUN (6-23) mg/dl Creatinine (0.6-1.2) mg/dl Est Cr Clr Drug Dosing ml/min Est GFR ( Amer) ml/min Est GFR (Non-Af Amer) ml/min BUN/Creatinine Ratio (10-20) Glucose (70-99(Fasting)) mg/dl Lactate 0.5 (0.4-2.0) mmol/L Calcium (8.5-10.1) mg/dl Magnesium (1.7-2.4) mg/dl Total Bilirubin (0.2-1.0) mg/dl Direct Bilirubin (0-0.2) mg/dl AST (13-39) U/L ALT (7-52) U/L Alkaline Phosphatase (34-104) U/L Troponin I High Sens (0-14) pg/ml Total Protein (6.0-8.3) gm/dl Albumin (3.4-5.0) gm/dl Procalcitonin 0.05 (0-0.5) ng/ml Urine Color Urine Appearance (Clear) Urine pH (4.5-7.5) Ur Specific Zirconia (1.000-1.030) Urine Protein (Negative) Urine Glucose (UA) (Negative) Urine Ketones (Negative) Urine Blood (Negative) Urine Nitrite (Negative) Urine Bilirubin (Negative) Urine Urobilinogen (Negative) Ur Leukocyte Esterase (Negative) Urine WBC (Auto) (0-5) /hpf Urine RBC (Auto) (0-4) /hpf U Hyaline Cast (Auto) (0-5) /lpf U Epithel Cells (Auto) (0-5) /lpf Urine Bacteria (Auto) (Negative) 12/07/22 Range/Units 15:04 WBC (4.8-10.8) K/ul RBC (4.20-5.40) M/uL Hgb (12.0-16.0) g/dl Hct (37.0-47.0) % MCV (80.0-100.0) fL MCH (25.0-34.0) pg MCHC (32.0-36.0) g/dL RDW Std Deviation (36.4-46.3) fL RDW Coeff of David (11.5-14.5) % Plt Count (130-400) K/uL MPV (9.4-12.4) fL Immature Gran % (Auto) % Neut % (Auto) % Lymph % (Auto) % [place] % (Auto) % Eos % (Auto) % Baso % (Auto) % Neut # (Auto) (1.40-6.50) K/uL Lymph # (Auto) (1.2-3.4) K/uL [place] # (Auto) (0.11-0.59) K/uL Eos # (Auto) (0-0.50) K/uL Baso # (Auto) (0-0.2) K/uL Immature Gran # (Auto) (0.01-0.20) K/uL PT (9.0-12.0) Seconds INR (0.9-1.1) APTT (21.0-31.0) Seconds PTT Ratio VBG pH (7.36-7.41) VBG pCO2 (38-50) mmHg VBG pO2 mmHg VBG HCO3 mmol/L VBG O2 Saturation % VBG Base Excess mEq/L Sodium (136-145) mmol/L Potassium (3.5-5.1) mmol/L Chloride (98-107) mmol/L Carbon Dioxide (21-32) mmol/L Anion Gap (3-11) BUN (6-23) mg/dl Creatinine (0.6-1.2) mg/dl Est Cr Clr Drug Dosing ml/min Est GFR ( Amer) ml/min Est GFR (Non-Af Amer) ml/min BUN/Creatinine Ratio (10-20) Glucose (70-99(Fasting)) mg/dl Lactate (0.4-2.0) mmol/L Calcium (8.5-10.1) mg/dl Magnesium (1.7-2.4) mg/dl Total Bilirubin (0.2-1.0) mg/dl Direct Bilirubin (0-0.2) mg/dl AST (13-39) U/L ALT (7-52) U/L Alkaline Phosphatase (34-104) U/L Troponin I High Sens (0-14) pg/ml Total Protein (6.0-8.3) gm/dl Albumin (3.4-5.0) gm/dl Procalcitonin (0-0.5) ng/ml Urine Color Yellow Urine Appearance Clear (Clear) Urine pH 6.0 (4.5-7.5) Ur Specific [place] 1.007 (1.000-1.030) Urine Protein Negative (Negative) Urine Glucose (UA) Negative (Negative) Urine Ketones Negative (Negative) Urine Blood Negative (Negative) Urine Nitrite Negative (Negative) Urine Bilirubin Negative (Negative) Urine Urobilinogen Negative (Negative) Ur Leukocyte Esterase 2+ H (Negative) Urine WBC (Auto) 10-30 H (0-5) /hpf Urine RBC (Auto) 0-4 (0-4) /hpf U Hyaline Cast (Auto) 0 (0-5) /lpf U Epithel Cells (Auto) 10-20 H (0-5) /lpf Urine Bacteria (Auto) Negative (Negative) Administered Medications Discontinued Medications Sodium Chloride (Nss) 500 mls @ 999 mls/hr IV .Q31M ONE Stop: 12/07/22 14:47 Last Infusion: 12/07/22 15:54 Dose: 0 mls/hr Documented By: Admin: 12/07/22 15:05 Dose: 999 mls/hr Documented By: QUINCY Ertapenem (Invanz) 10 mls @ 2 mls/min IV NOW STA Stop: 12/07/22 16:13 Last Admin: 12/07/22 16:37 Dose: 2 mls/min Documented By: QUINCY Imaging Data Attestation: I personally reviewed and interpreted this imaging study as follows: My Impression: CT of the abdomen and pelvis was obtained in the emergency department. My interpretation is no signs of obstruction no free air, final report pending. CT the head was obtained in the emergency department. My initial interpretation is no intracranial hemorrhage, no mass effect, final report pending X-rays of the left shoulder were obtained in the emergency department. My interpretation is no definite fracture, final report pending Chest x-ray was obtained in the emergency department. My interpretation is no definite infiltrate, cardiomegaly, final report pending. Radiologist's Impression: Abdomen/Pelvis CT 12/07/22 14:[address] WITHOUT CONTRAST HISTORY: Acute bilateral flank pain status post fall flank pain TECHNIQUE: Multiaxial CT images of the abdomen and pelvis were performed without contrast. A dose lowering technique was utilized adhering to the principles of ALARA. COMPARISON STUDY: 06/02/2022 FINDINGS: Mild cardiomegaly. Partially imaged catheter within the superior cavoatrial junction. Mild right hemidiaphragmatic elevation. Mild bibasilar atelectasis/scarring. No pneumatosis or pneumoperitoneum. The unenhanced spleen is upper limits of normal in size. Moderately atrophic pancreas. Unremarkable adrenal glands. Contracted gallbladder. Unremarkable liver. Is severely atrophic right kidney redemonstrated. Bilateral nephrolithiasis with calculi measuring up to 1.1 cm on the right and 0.9 cm on the left. Probable cyst of the superior pole right kidney measures 1.3 cm. No ureteral calculi or hydronephrosis. Unremarkable urinary bladder. Straightening. No abdominal aortic aneurysm or lymphadenopathy. Postoperative changes of the stomach and bowel. There is moderate colonic fecal retention. The appendix is not visualized. Diastases of the anterior abdominal wall. Subcutaneous calcifications of the bilateral flanks. No acute fracture identified. Demineralized appearance of the bones. L3 vertebral body hemangioma. Unchanged mild superior endplate compression at L3 with chronic inferior endplate Schmorl's node at L2. IMPRESSION: 1. No acute posttraumatic intra-abdominal or intrapelvic abnormality. 2. No bowel obstruction or bowel wall thickening. 3. Bilateral nephrolithiasis. 4. Severely atrophic right kidney. 5. Additional findings as above. ACT 112: Negative or not required by law. The above report was generated using voice recognition software. It may contain grammatical, syntax or spelling errors. Electronically signed by: Soham Kirby M.D. 12/07/2022 3:[address] 12/07/22 14:17 CT cervical spine wo con CT DOSE: 1934.80 mGy.cm CLINICAL HISTORY: 72 years-old Female with fakll. Acute neck pain status post fall COMPARISON: Head CT of same day, CT cervical spine 11/15/2022 TECHNIQUE: Multiple axial CT images of the cervical spine were obtained without contrast. A dose lowering technique was utilized adhering to the principles of ALARA. FINDINGS: Multilevel degenerative changes of the cervical spine redemonstrated. Demineralized appearance the bones. C6 vertebral body hemangioma. No acute fracture or subluxation identified. Partially imaged right IJ catheter. Heterogeneity of the thyroid. The cervical soft tissues appear unremarkable. The visualized lung apices appear clear. IMPRESSION: No acute cervical spine fracture or subluxation. ACT 112: Negative or not required by law. The above report was generated using voice recognition software. It may contain grammatical, syntax or spelling errors. Electronically signed by: Soham Kirby M.D. 12/07/2022 3:[address] 12/07/22 14:17 CT head/brain wo con CLINICAL HISTORY: 72 years-old Female with fall. Acute head trauma status post fall TECHNIQUE: Multiple axial CT images of the head were obtained without contrast. A dose lowering technique was utilized adhering to the principles of ALARA. COMPARISON: Head CT 11/15/2022 FINDINGS: No acute intracranial hemorrhage, midline shift, intracranial mass, hydrocephalus, territorial ischemia or abnormal extra-axial collection. Involutional changes. Suggestion of mild chronic microvascular ischemic disease. The calvarium is intact. Bilateral lens repair. Moderate mucoperiosteal thickening of the paranasal sinuses. Mastoid air cells are clear. IMPRESSION: No acute intracranial abnormality. ACT 112: Negative or not required by law. The above report was generated using voice recognition software. It may contain grammatical, syntax or spelling errors. Electronically signed by: Soham Kirby M.D. 12/07/2022 3:44 PM Shoulder X-Ray 12/07/22 14:17 XR shoulder LT min 2V routine HISTORY: 72 years-old Female fall acute left shoulder pain status post fall COMPARISON: Chest radiograph of same day TECHNIQUE: 3 views of the left shoulder FINDINGS: Chronic appearing left-sided rib fractures. Mild osteoarthritis of the left shoulder without acute fracture, dislocation or osseous erosion. IMPRESSION: No acute fracture or dislocation. ACT 112: Negative or not required by law. The above report was generated using voice recognition software. It may contain grammatical, syntax or spelling errors. Electronically signed by: Soham Kirby M.D. 12/07/2022 2:43 PM Chest X-Ray 12/07/22 14:18 XR chest 1V portable HISTORY: 72 years-old Female Sepsis acute sepsis COMPARISON: Left shoulder radiographs of same day, chest radiograph 11/15/2022 TECHNIQUE: AP view of the chest FINDINGS: Cardiac silhouette is enlarged. Right IJ central venous catheter is noted with distal tip in the expected location of the mid SVC. No pneumothorax, large pleural effusion or overt pulmonary edema. Mild right hemidiaphragmatic elevation. Chronic interstitial coarsening of the lung bases. Degenerative changes of the shoulders and spine. Surgical clips of the epigastric distribution. IMPRESSION: Cardiomegaly without acute process. ACT 112: Negative or not required by law. The above report was generated using voice recognition software. It may contain grammatical, syntax or spelling errors. Electronically signed by: Soham Kirby M.D. 12/07/2022 2:42 PM Discharge Plan Visit Data Chief Complaint: Fall Stated Complaint: FALL, R SHOULDER PAIN, DIZZINESS, HYPOTENSION ED Provider: Boby Norton Discharge Problem: Near syncope, Acute UTI (urinary tract infection), Acute hypotension, Contusion of left shoulder Patient Disposition: Being Evaluated by Hospitalist Forms Stand Alone Forms: [facility] Prescriptions Prescriptions: No Action colesevelam [WelChol] 625 mg tablet 625 mg PO TID Patient Comments: before meals , morning , noon and night Rx Instructions: PER [facility]-TAKE 1250 MG BIDM. montelukast [Singulair] 10 mg tablet 10 mg PO HS Prilosec OTC 20 mg tablet,delayed release (DR/EC) 20 mg PO BID mecobalamin (vitamin B12) 1,000 mcg tablet,disintegrating 1,000 mcg PO QAM Rx Instructions: place tablet under tongue and allow to dissolve for at least30 secs before swallowing desipramine 50 mg tablet 50 mg PO BID Rx Instructions: PER GMG--TAKE 25 MG TID, THEN 50 AT HS. pregabalin 100 mg capsule 100 mg PO TID Qty: 90 2RF duloxetine [Cymbalta] 20 mg capsule,delayed release(DR/EC) 20 mg PO HS Qty: 30 5RF calcium carbonate [Calcium 600] 600 mg calcium (1,500 mg) tablet 1,200 mg PO TID Qty: 180 5RF calcitriol 0.5 mcg capsule 0.5 mcg PO BID Qty: 60 5RF Trelegy Ellipta 100-62.5-25 mcg blister with device 1 inh inhalation QAM Qty: 60 5RF Rx Instructions: USE ONE INHALATION EVERY MORNING albuterol sulfate 90 mcg/actuation aerosol powdr breath activated 2 inh INH Q6H PRN (Reason: Shortness Of Breath Or Wheezing) Qty: 1 3RF lamotrigine 25 mg tablet 25 mg PO BID Qty: 60 3RF ipratropium-albuterol 0.5 mg-3 mg(2.5 mg base)/3 mL Solution For Nebulization 3 ml INHALATION Q4H PRN (Reason: Shortness Of Breath Or Wheezing) Creon 24,000-76,000 -120,000 unit Capsule,Delayed Release(Dr/Ec) 4 cap PO TID Patient Comments: before meals potassium chloride 10 mEq capsule, extended release 10 meq PO TID torsemide 20 mg tablet 40 mg PO BID valacyclovir 500 mg tablet 500 mg PO DAILY ropinirole 0.5 mg tablet 0.5 mg PO HS escitalopram oxalate 20 mg tablet 20 mg PO QAM rosuvastatin 10 mg tablet 10 mg PO DAILY metolazone 2.5 mg Tablet 2.5 mg PO DAILY PRN (Reason: WT >199 LBS.) oxycodone-acetaminophen [Percocet] 5-325 mg Tablet 1 tab PO Q6H PRN (Reason: Pain) tamsulosin [Flomax] 0.4 mg Capsule 0.4 mg PO DAILY cholecalciferol (vitamin D3) [Vitamin D3] 25 mcg (1,000 unit) Capsule 50 mcg PO DAILY tizydmpykqus-ctqkbcni-ybiiio Tablet 1 tab PO DAILY risperidone 2 mg Tablet 2 mg PO HS levothyroxine 88 mcg tablet 88 mcg PO QAM lorazepam 0.5 mg tablet 0.5 mg PO BID PRN (Reason: Anxiety) Referrals Referrals: Ronnell,Frederick, DO [Primary Care Provider] - Contusion of left shoulder Qualifiers: Encounter type: initial encounter Qualified Code(s): S40.012A - Contusion of left shoulder, initial encounter
--- NOTE | 2022-12-07 14:43 | XRay Report ---
XR chest 1V portable HISTORY: 72 years-old Female Sepsis acute sepsis COMPARISON: Left shoulder radiographs of same day, chest radiograph 11/15/2022 TECHNIQUE: AP view of the chest FINDINGS: Cardiac silhouette is enlarged. Right IJ central venous catheter is noted with distal tip in the expe cted location of the mid SVC. No pneumothorax, large pleural effusion or overt pulmonary edema. Mild right hemidiaphragmatic elevation. Chronic interstitial coarsening of the lung bases. Degenerative ch anges of the shoulders and spine. Surgical clips of the epigastric distribution. IMPRESSION: Cardiomegaly without acute process. ACT 112: Negative or not required by law. The above report was generated using voice recognition software. It may contain grammatical, syntax o r spelling errors. Electronically signed by: Soham Kirby M.D. 12/07/2022 2:42 PM
[2022-12-07 14:44] LABS: Basophils # (auto) 0.06 K/uL (0-0.2); Basophils % (auto) 0.9 %; Eosinophils # (auto) 0.38 K/uL (0-0.50); Eosinophils % (auto) 5.8 %; Hematocrit (blood only) 32.9 % (37.0-47.0); Immature Granulocytes # (auto) 0.03 K/uL (0.01-0.20); Immature Granulocytes % (auto) 0.5 %; Lymphocytes # (auto) 1.49 K/uL (1.2-3.4); Lymphocytes % (auto) 22.6 %; Mean Corpuscular Hemoglobin 29.5 pg (25.0-34.0); Mean Corpuscular Hgb Conc 33.4 g/dL (32.0-36.0); Mean Corpuscular Volume 88.2 fL (80.0-100.0); Mean Platelet Volume 10.9 fL (9.4-12.4); Monocytes # (auto) 0.62 K/uL (0.11-0.59); Monocytes % (auto) 9.4 %; Neutrophils # (auto) 4.01 K/uL (1.40-6.50); Neutrophils % (auto) 60.8 %; Platelet Count 177 K/uL (130-400); RDW Coefficient of Variation 14.9 % (11.5-14.5); RDW Standard Deviation 47.8 fL (36.4-46.3); Red Blood Count 3.73 M/uL (4.20-5.40); White Blood Count 6.59 K/ul (4.8-10.8)
--- NOTE | 2022-12-07 14:44 | XRay Report ---
XR shoulder LT min 2V routine HISTORY: 72 years-old Female fall acute left shoulder pain status post fall COMPARISON: Chest radiograph of same day TECHNIQUE: 3 views of the left shoulder FINDINGS: Chronic appearing left-sided rib fractures. Mild osteoarthritis of the left shoulder without acute fr acture, dislocation or osseous erosion. IMPRESSION: No acute fracture or dislocation. ACT 112: Negative or not required by law. The above report was generated using voice recognition software. It may contain grammatical, syntax o r spelling errors. Electronically signed by: Soham Kirby M.D. 12/07/2022 2:43 PM
[2022-12-07 14:54] LABS: Base Excess VBG 3.6 mEq/L; HCO3 VBG 30 mmol/L; Oxygen Saturation VBG 73.5 %; PCO2 VBG 52 mmHg (38-50); PO2 VBG 44 mmHg; pH VBG 7.37 (7.36-7.41)
[2022-12-07 15:00] LABS: Albumin Level 3.7 gm/dl (3.4-5.0); Bilirubin Direct 0.1 mg/dl (0-0.2); Bilirubin,Total 0.5 mg/dl (0.2-1.0); Calcium 9.1 mg/dl (8.5-10.1); Creatinine Clr Calc Pharmacy 37.1 ml/min; Est GFR (African American) 42.9 ml/min; Potassium 3.2 mmol/L (3.5-5.1); Total Protein 6.3 gm/dl (6.0-8.3)
[2022-12-07 15:05] LABS: INR 1.1 (0.9-1.1); Partial Thromboplastin Ratio 1.3; Partial Thromboplastin Time 36.7 Seconds (21.0-31.0); Prothrombin Time 11.3 Seconds (9.0-12.0)
[2022-12-07 15:06] LABS: Troponin I High Sensitivity 12.9 pg/ml (0-14)
[2022-12-07 15:14] LABS: Appearance Urine Clear (Clear); Bacteria Urine Automated Negative (Negative); Bilirubin Urine Negative (Negative); Blood Urine Negative (Negative); Cast Urine Automated 0 /lpf (0-5); Color Urine Yellow; Glucose Urine UA Negative (Negative); Ketones Urine Negative (Negative); Leukocyte Esterase Urine 2+ (Negative); Nitrite Urine Negative (Negative); Protein Urine Negative (Negative); RBC Urine Automated 0-4 /hpf (0-4); Specific Gravity Urine 1.007 (1.000-1.030); Urobilinogen Urine Negative (Negative)
--- NOTE | 2022-12-07 15:48 | CT Scan Report ---
CT head/brain wo con CLINICAL HISTORY: 72 years-old Female with fall. Acute head trauma status post fall TECHNIQUE: Multiple axial CT images of the head were obtained without contrast. A dose lowering tech nique was utilized adhering to the principles of ALARA. COMPARISON: Head CT 11/15/2022 FINDINGS: No acute intracranial hemorrhage, midline shift, intracranial mass, hydrocephalus, territorial ischem ia or abnormal extra-axial collection. Involutional changes. Suggestion of mild chronic microvascular ischemic disease. The calvarium is intact. Bilateral lens repair. Moderate mucoperiosteal thickening of the paranasal sinuses. Mastoid air cells are clear. IMPRESSION: No acute intracranial abnormality. ACT 112: Negative or not required by law. The above report was generated using voice recognition software. It may contain grammatical, syntax o r spelling errors. Electronically signed by: Soham Kirby M.D. 12/07/2022 3:44 PM
--- NOTE | 2022-12-07 15:55 | CT Scan Report ---
CT cervical spine wo con CT DOSE: 1934.80 mGy.cm CLINICAL HISTORY: 72 years-old Female with fakll. Acute neck pain status post fall COMPARISON: Head CT of same day, CT cervical spine 11/15/2022 TECHNIQUE: Multiple axial CT images of the cervical spine were obtained without contrast. A dose low ering technique was utilized adhering to the principles of ALARA. FINDINGS: Multilevel degenerative changes of the cervical spine redemonstrated. Demineralized appeara nce the bones. C6 vertebral body hemangioma. No acute fracture or subluxation identified. Partially i darren right IJ catheter. Heterogeneity of the thyroid. The cervical soft tissues appear unremarkable. The visualized lung apices appear clear. IMPRESSION: No acute cervical spine fracture or subluxation. ACT 112: Negative or not required by law. The above report was generated using voice recognition software. It may contain grammatical, syntax o r spelling errors. Electronically signed by: Soham Kirby M.D. 12/07/2022 3:53 PM
--- NOTE | 2022-12-07 16:02 | CT Scan Report ---
ABDOMEN AND PELVIS CT WITHOUT CONTRAST HISTORY: Acute bilateral flank pain status post fall flank pain TECHNIQUE: Multiaxial CT images of the abdomen and pelvis were performed without contrast. A dose lo wering technique was utilized adhering to the principles of ALARA. COMPARISON STUDY: 06/02/2022 FINDINGS: Mild cardiomegaly. Partially imaged catheter within the superior cavoatrial junction. Mild right hemidiaphragmatic elevation. Mild bibasilar atelectasis/scarring. No pneumatosis or pneumoperit oneum. The unenhanced spleen is upper limits of normal in size. Moderately atrophic pancreas. Unremar kable adrenal glands. Contracted gallbladder. Unremarkable liver. Is severely atrophic right kidney redemonstrated. Bilateral nephrolithiasis with calculi measuring up to 1.1 cm on the right and 0.9 cm on the left. Probable cyst of the superior pole right kidney measu res 1.3 cm. No ureteral calculi or hydronephrosis. Unremarkable urinary bladder. Straightening. No ab dominal aortic aneurysm or lymphadenopathy. Postoperative changes of the stomach and bowel. There is moderate colonic fecal retention. The append ix is not visualized. Diastases of the anterior abdominal wall. Subcutaneous calcifications of the bi lateral flanks. No acute fracture identified. Demineralized appearance of the bones. L3 vertebral bod y hemangioma. Unchanged mild superior endplate compression at L3 with chronic inferior endplate Schmo rl's node at L2. IMPRESSION: 1. No acute posttraumatic intra-abdominal or intrapelvic abnormality. 2. No bowel obstruction or bowel wall thickening. 3. Bilateral nephrolithiasis. 4. Severely atrophic right kidney. 5. Additional findings as above. ACT 112: Negative or not required by law. The above report was generated using voice recognition software. It may contain grammatical, syntax o r spelling errors. Electronically signed by: Soham Kirby M.D. 12/07/2022 3:59 PM
[2022-12-07] MEDS ORDERED: ERTAPENEM SODIUM 10 ML IV STA (16:09)
--- NOTE | 2022-12-07 16:32 | History & Physical Report ---
Date of Service December 07, 2022 Assessment & Plan (1) Near syncope: (2) Fall: (3) Contusion of left shoulder: (4) JAVI (acute kidney injury): Plan This is a 72-year-old female who has significant past medical history of chronic diastolic CHF, pulm hypertension, renal disease, COPD, LARRY, hyperlipidemia, chronic pancreatitis, hyperparathyroidism, hypothyroidism, GERD, history of nephrolithiasis, RLS, enclosing spondylitis depression with anxiety who presents to ED secondary to syncope x2 prior to arrival. Fall ?Syncope vs Vertiginous sx pt with 2 falls today, there is a ? of syncope vs fall in setting of idiopathic neuropathy of ? vertigo pt reports frequent falls in the last year with recent worsening no recent med changes will w/u syncope with echo, carotid doppler, orthostatics (negative in ED; however after IVF bolus) consider PT for BPPV Recent hx of Complicated ESBL UTI continue empiric IV ertapenem await urine and blood culture JAVI on CKD 3 Creatinine increased to 1.5, was 1.1 at discharge hold torsemide give gentle IVF Avoid nephrotoxic agents Follows with [facility] L Shoulder injury pt follows [facility] - consult ? RC tear and possible bicep tear ICE, elevate, make NWB for now Peripheral neuropathy Lamictal recently added by neurology Continue pregabalin and duloxetine ? if causing freq falls Chronic diastolic heart failure Sinus Bradycardia, hx of junctional rhythm No sign of volume overload Continue monitor hold torsemide off negative chronotropic agents will consult [facility] cards to eval, pt follows Dr. Otoole Hypokalemia Potassium 3.2 today replete increase supplement to 20meq tid COPD LARRY- noncompliant with cpap stable DVT prophylaxis. Lovenox subcu Full code Disposition - tele A total of 100 minutes was spent with greater than 50% of that time personally viewing all current laboratory work and diagnostic imaging studies obtained in the ED. Additionally, I was able to view the patients past medication reconciliation and history with direct visualization in the patients chart. Included in the time above, a portion of that time was spent assessing the patient while discussing and collaborating with specialists, if necessary, and making medical decision making on treatment plan. All of the above was collaborated with Dr. Easley. Please see addendum for further details. History of Present Illness Chief Complaint: Syncope x2 prior to arrival. Primary Care Provider: Frederick Reynaga, DO This is a 72-year-old female who has significant past medical history of chronic diastolic CHF, pulm hypertension, renal disease, COPD, LARRY, hyperlipidemia, chronic pancreatitis, hyperparathyroidism, hypothyroidism, GERD, history of nephrolithiasis, RLS, enclosing spondylitis depression with anxiety who presents to ED secondary to syncope x2 prior to arrival. Patient states that she had 2 falls today. First 1 was when she got out of the shower and was trying to dry herself. She felt, "funny in the head," and the next thing she knew she was on the ground on her left side. She hit the left side of her head and her left shoulder. She was unable to get up pushed her life alert button and EMS was summoned. They were able to get her up to the chair and she refused further evaluation. Upon initial questioning there was concern that patient may have syncopized. She states that she did feel lightheaded prior to the fall but denies any chest pain, shortness of breath diaphoresis or nausea. She feels that she does recall all events and does not feel it was true syncope. The second episode she was walking into the kitchen. When she first got up from her chair she felt, "funny in the head," and the more she walked she then found herself down on the ground again. This time she thinks she fell on her back/buttock. She denies any injury from that fall. Unfortunately due to left shoulder pain he required her to summon EMS again. Per prehospital personnel she was hypotensive with blood pressures in the 70s. In ED she was bolused with IV fluid and her blood pressure stabilized. She was not hypotensive in ED. She was not hypotensive in ED. Lab work notable for H&H 11.0 and 32.9, potassium 3.2, BUN 50, creatinine 1.43, BUN/creatinine ratio 35. Her urine did have positive leukocyte esterase but 10-20 epithelial cells. Due to recent UTI she was given empiric dose of IV ertapenem. She has been taking her medications regularly. She otherwise denies any recent illness, fever, chills, sweats, chest pain, shortness breath at rest, URI symptoms, nausea, vomiting, abdominal pain. He feels like her appetite is at baseline. Currently she complains of significant left shoulder pain and inability to move left shoulder. Of significance patient recently hospitalized 11/16 to 11/20/2022 secondary to complicated UTI. Urine culture grew ESBL and she was treated with IV meropenem for 7-day course. Hospital course was complicated with JAVI with peak creatinine of 1.8 and creatinine of 1.1 on the day of discharge. She received gentle IV fluids and her diuretics were held. She follows closely with [facility] nephrology. Allergies Allergy/AdvReac Type Severity Reaction Status Date / Time bethanechol Allergy Intermediate RASH, Verified 12/07/22 16:56 "FEELS FUNNY" Cephalosporins Allergy Intermediate RASH, Verified 12/07/22 15:30 DIARRHEA levofloxacin Allergy Intermediate RASH,TURNED Verified 12/07/22 15:30 RED Sulfa (Sulfonamide Allergy Intermediate Generalized Verified 12/07/22 15:30 Antibiotics) Rash ertapenem Allergy Mild RASH Verified 12/07/22 16:57 clindamycin Allergy Unknown Unknown Verified 12/07/22 15:30 dipyridamole Allergy Unknown UNKNOWN Verified 12/07/22 15:30 droperidol Allergy Unknown Unknown Verified 12/07/22 15:30 promethazine Allergy Unknown UNKNOWN Verified 12/07/22 15:30 tobramycin Allergy Unknown UNKNOWN Verified 12/07/22 15:30 aspirin AdvReac Severe BLEEDING Verified 12/07/22 15:30 doxycycline AdvReac Severe severe Verified 12/07/22 15:30 Diarrhea, nausea metolazone AdvReac Severe ELECTROLYTE Verified 12/07/22 15:30 ISSUES bupropion AdvReac Intermediate NERVOUS Verified 12/07/22 15:30 REACTION cephalexin AdvReac Intermediate GI SYMPTOMS Verified 12/07/22 15:30 morphine AdvReac Intermediate NERVOUS Verified 12/07/22 15:30 REACTION TO IT nitrofurantoin AdvReac Intermediate Vomiting Verified 12/07/22 15:30 [From Macrobid] prochlorperazine AdvReac Intermediate NERVOUS Verified 12/07/22 15:30 REACTION tedizolid AdvReac Intermediate GI SYMPTOMS Verified 12/07/22 15:30 Home Medications Medication Instructions Recorded Confirmed Type colesevelam 625 mg tablet (WelChol) 625 mg PO TID 06/17/18 12/07/22 History montelukast 10 mg tablet 10 mg PO HS 06/17/18 12/07/22 History (Singulair) ipratropium 0.5 mg-albuterol 3 mg 3 ml inhalation Q4H PRN Shortness 05/05/19 12/07/22 History (2.5 mg base)/3 mL nebulization Of Breath Or Wheezing soln xuarag-ctodxpze-zkingdo 4 cap PO TID 05/05/19 12/07/22 History 24,000-76,000-120,000 unit capsule,delayed rel (Creon) omeprazole magnesium 20 mg 20 mg PO BID 05/17/19 12/07/22 History tablet,delayed release (Prilosec OTC) mecobalamin (vitamin B12) 1,000 1,000 mcg PO QAM 01/21/21 12/07/22 History mcg disintegrating tablet,sublingual risperidone 2 mg tablet 2 mg PO HS 02/27/21 12/07/22 History potassium chloride 10 mEq 10 meq PO TID 12/04/21 12/07/22 History capsule,extended release desipramine 50 mg tablet 50 mg PO BID 01/23/22 12/07/22 History levothyroxine 88 mcg tablet 88 mcg PO QAM 05/19/22 12/07/22 History calcitriol 0.5 mcg capsule 0.5 mcg PO BID #60 caps 07/02/22 12/07/22 Rx calcium carbonate 600 mg calcium 1,200 mg PO TID #180 tabs 07/02/22 12/07/22 Rx (1,500 mg) tablet (Calcium) albuterol sulfate 90 mcg/actuation 2 inh inhalation Q6H PRN Shortness 07/31/22 12/07/22 Rx breath activated powder inhaler Of Breath Or Wheezing #1 ea fluticasone fur. 100 mcg-umeclid 1 inh inhalation QAM #60 ea 07/31/22 12/07/22 Rx 62.5 mcg-vilant 25 mcg inhalat.powder (Trelegy Ellipta) pregabalin 100 mg capsule 100 mg PO TID #90 caps 10/01/22 12/07/22 Rx duloxetine 20 mg capsule,delayed 20 mg PO HS #30 caps 10/29/22 12/07/22 Rx release (Cymbalta) lamotrigine 25 mg tablet 25 mg PO BID #60 tabs 11/06/22 12/07/22 Rx lorazepam 0.5 mg tablet 0.5 mg PO BID PRN Anxiety 11/06/22 12/07/22 History cholecalciferol (vitamin D3) 25 50 mcg PO DAILY 11/15/22 12/07/22 History mcg (1,000 unit) capsule (Vitamin D3) escitalopram oxalate 20 mg tablet 20 mg PO QAM 11/15/22 12/07/22 History metolazone 2.5 mg tablet 2.5 mg PO DAILY PRN WT >199 LBS. 11/15/22 12/07/22 His tory lqkpumhmqabl-pjubvhge-cfamqf tablet 1 tab PO DAILY 11/15/22 12/07/22 History oxycodone-acetaminophen 5 mg-325 1 tab PO Q6H PRN Pain 11/15/22 12/07/22 History mg tablet (Percocet) ropinirole 0.5 mg tablet 0.5 mg PO HS 11/15/22 12/07/22 History rosuvastatin 10 mg tablet 10 mg PO DAILY 11/15/22 12/07/22 History tamsulosin 0.4 mg capsule (Flomax) 0.4 mg PO DAILY 11/15/22 12/07/22 History torsemide 20 mg tablet 40 mg PO BID 11/15/22 12/07/22 History valacyclovir 500 mg tablet 500 mg PO DAILY 11/15/22 12/07/22 History Past Med/Surg History Medical History (Updated 12/12/22 @ 12:38 by Srikanth Wagner MD) Asthma Atherosclerosis of both lower extremities Chronic diastolic (congestive) heart failure Hospitalized March 2022 Follows w/[facility] (Dr. Otoole), EF 55-60% Chronic kidney disease stage 3b Chronic sinusitis Chronic urinary tract infection Chronic venous insufficiency COPD (chronic obstructive pulmonary disease) Depression GERD without esophagitis H/O concussion "a long time ago" History of anemia History of esophageal dilatation Hyperlipidemia per records Hypothyroidism Incisional hernia Abdominal (from multiple surgeries/feeding tube) Kidney stones Lumbar transverse process fracture Pt reports lower back detioriating - can't lie flat/sleep on a chair MRSA (methicillin resistant staph aureus) culture positive History of Left wrist Had 3 nasal swab and all negative (through [facility] per pt) Obesity Osteoporosis Pancreatic insufficiency chronic pancreatitis Peripheral neuropathy Port-A-Cath in place right side due to poor vascular access PUD (peptic ulcer disease) Had feeding tube for 28 years (has been removed for 11 years) Pulmonary hypertension mild per 07/[address] report PVC (premature ventricular contraction) Reactive hypoglycemia Right rotator cuff tear Secondary hyperparathyroidism Sepsis 05/2020 @ [facility], urosepsis 2/2 obstructing renal stone, S/P cysto/stent and ESWL Short bowel syndrome Sleep apnea complex sleep apnea, BIPAP *has not used it, can't get used to wearing a mask SOB (shortness of breath) on exertion Trouble swallowing hx egd with dilation / "narrowing" Urinary leakage Wrist injury Scar tissue surrounding remote wrist ORIF several years ago resulting in intermittent inflammation per pt Surgical History H/O shoulder surgery RT arthroscopy 05/28/2021: LMA#4 atraumatic x 1 + PNB. Anesthesia postop progress note: "Pt denies SOB at this time. Block is functioning well. Vital signs stable and appropriate. Oxygenating well considering block placement and her comorbidities. Plan to discharge home with IS." History of appendectomy History of cardiac cath 08/2019 ([facility]): essentially normal coronary arteries angiographically, + luminal irregularities. no stents History of cholecystectomy History of colonoscopy History of cystoscopy multiple History of esophagogastroduodenoscopy (EGD) History of gastrointestinal surgery multiple History of joint replacement Rt thumb History of knee replacement procedure of right knee History of open reduction and internal fixation (ORIF) procedure left wrist + manipulation (01/2018) and I&D (10/2019) History of partial gastrectomy History of prior ablation treatment Right LE in January 2020 and left LE 04/18/20 History of sinus surgery History of tonsillectomy and adenoidectomy History of total abdominal hysterectomy and bilateral salpingo-oophorectomy S/P right rotator cuff repair S/P ureteral stent placement Status post laser lithotripsy of ureteral calculus most recent litho nov 2021 04/29/2021: LMA#4 atraumatic x 1. [facility]. 03/01/2021: LMA#4 atraumatic x 1. [facility]. 02/04/2021: LMA#4 atraumatic x 1. [facility]. 07/04/2020: LMA#4 atraumatic x 1. [facility]. No issues per anesthesia postop progress notes. Family History Mother Family history of diabetes mellitus Sister Family history of diabetes mellitus Family history of breast cancer Father Esophageal cancer Other Family history non-contributory No family history of adverse response to anesthesia Social History Smoking Status: Never smoker Second Hand Exposure: Yes ( A CHILD); Hx Alcohol Use: No Hx Substance Use: No Preferred Language: Luxembourgish Communication Ability: Effective Visual Impairment: No Limitations Turning Lathe Tender Required: No Beliefs That Will Affect Care: None marital status: Single Current Living Situation: Alone Current Living Situation Comment: APARTMENT COMPLEX>FRIENDS ALL AROUND How many Children do You have: 0 Feels Safe at Home: Yes Assistive Devices: Walker Review of Systems Review of Systems: All systems reviewed & are unremarkable except as noted in HPI & below Physical Exam Physical Exam: Constitutional: WD/WN, appears older than age, slowed speech, vitals as above, NAD, sitting up in bed, pleasant, conversing easily Head: Normocephalic, Atraumatic Eyes: PERRL, conjunctivae normal, anicteric sclerae ENMT: external ear and nose normal, oropharynx normal dry mucus membranes Neck: trachea midline, no thyromegaly normal visual inspection Respiratory: normal respiratory effort, lungs clear to auscultation, no wheeze, rales, rhonchi. Normal insp/exp effort, no accessory muscle use Cardiovascular: RRR, 2/6 pati, b/l +1 edema, no redness/homans, no pain to palp no edema Vessels: no JVD or carotid bruit Chest: normal inspection of chest RACW port a cath Abdomen: normal bowel sounds, soft, nontender, no hepatosplenomegaly Musculoskeletal: no cyanosis or clubbing, L shoulder ecchymosis, inability to abduct L shoulder or extend anterior/laterally, ? bicep tear as well Skin: no rashes, warm and dry normal turgor Neurologic: PERRL, EOMI, accommodation nl, no face palsy, no dysarthria CN's II-XI intact bilaterally and moves all extremities Psychiatric: A+Ox3, euthymic affect Lymphatic: no cervical or axillary lymphadenopathy : deferred Results & Data Results & Data ([facility]) Vital Signs (Past 12 Hours) Vital Signs Temp Pulse Pulse Resp BP BP Pulse Ox 12/07/22 15:55 62 12/07/22 15:06 61 16 119/72 97 12/07/22 14:36 12/07/22 14:36 35.8 C L 59 L 18 111/67 98 O2 Del Method 12/07/22 15:55 12/07/22 15:06 Room Air 12/07/22 14:36 Room Air 12/07/22 14:36 Room Air Diagnostic Findings Abdomen/Pelvis CT 12/07/22 14:[address] WITHOUT CONTRAST HISTORY: Acute bilateral flank pain status post fall flank pain TECHNIQUE: Multiaxial CT images of the abdomen and pelvis were performed without contrast. A dose lowering technique was utilized adhering to the principles of ALARA. COMPARISON STUDY: 06/02/2022 FINDINGS: Mild cardiomegaly. Partially imaged catheter within the superior cavoatrial junction. Mild right hemidiaphragmatic elevation. Mild bibasilar atelectasis/scarring. No pneumatosis or pneumoperitoneum. The unenhanced spleen is upper limits of normal in size. Moderately atrophic pancreas. Unremarkable adrenal glands. Contracted gallbladder. Unremarkable liver. Is severely atrophic right kidney redemonstrated. Bilateral nephrolithiasis with calculi measuring up to 1.1 cm on the right and 0.9 cm on the left. Probable cyst of the superior pole right kidney measures 1.3 cm. No ureteral calculi or hydronephrosis. Unremarkable urinary bladder. Straightening. No abdominal aortic aneurysm or lymphadenopathy. Postoperative changes of the stomach and bowel. There is moderate colonic fecal retention. The appendix is not visualized. Diastases of the anterior abdominal wall. Subcutaneous calcifications of the bilateral flanks. No acute fracture identified. Demineralized appearance of the bones. L3 vertebral body hemangioma. Unchanged mild superior endplate compression at L3 with chronic inferior endplate Schmorl's node at L2. IMPRESSION: 1. No acute posttraumatic intra-abdominal or intrapelvic abnormality. 2. No bowel obstruction or bowel wall thickening. 3. Bilateral nephrolithiasis. 4. Severely atrophic right kidney. 5. Additional findings as above. ACT 112: Negative or not required by law. The above report was generated using voice recognition software. It may contain grammatical, syntax or spelling errors. Electronically signed by: Soham Kirby M.D. 12/07/2022 3:[address] 12/07/22 14:17 CT cervical spine wo con CT DOSE: 1934.80 mGy.cm CLINICAL HISTORY: 72 years-old Female with fakll. Acute neck pain status post fall COMPARISON: Head CT of same day, CT cervical spine 11/15/2022 TECHNIQUE: Multiple axial CT images of the cervical spine were obtained without contrast. A dose lowering technique was utilized adhering to the principles of ALARA. FINDINGS: Multilevel degenerative changes of the cervical spine redemonstrated. Demineralized appearance the bones. C6 vertebral body hemangioma. No acute fracture or subluxation identified. Partially imaged right IJ catheter. Heterog eneity of the thyroid. The cervical soft tissues appear unremarkable. The visualized lung apices appear clear. IMPRESSION: No acute cervical spine fracture or subluxation. ACT 112: Negative or not required by law. The above report was generated using voice recognition software. It may contain grammatical, syntax or spelling errors. Electronically signed by: Soham Kirby M.D. 12/07/2022 3:[address] 12/07/22 14:17 CT head/brain wo con CLINICAL HISTORY: 72 years-old Female with fall. Acute head trauma status post fall TECHNIQUE: Multiple axial CT images of the head were obtained without contrast. A dose lowering technique was utilized adhering to the principles of ALARA. COMPARISON: Head CT 11/15/2022 FINDINGS: No acute intracranial hemorrhage, midline shift, intracranial mass, hydrocephalus, territorial ischemia or abnormal extra-axial collection. Involutional changes. Suggestion of mild chronic microvascular ischemic disease. The calvarium is intact. Bilateral lens repair. Moderate mucoperiosteal thickening of the paranasal sinuses. Mastoid air cells are clear. IMPRESSION: No acute intracranial abnormality. ACT 112: Negative or not required by law. The above report was generated using voice recognition software. It may contain grammatical, syntax or spelling errors. Electronically signed by: Soham Kirby M.D. 12/07/2022 3:44 PM Shoulder X-Ray 12/07/22 14:17 XR shoulder LT min 2V routine HISTORY: 72 years-old Female fall acute left shoulder pain status post fall COMPARISON: Chest radiograph of same day TECHNIQUE: 3 views of the left shoulder FINDINGS: Chronic appearing left-sided rib fractures. Mild osteoarthritis of the left shoulder without acute fracture, dislocation or osseous erosion. IMPRESSION: No acute fracture or dislocation. ACT 112: Negative or not required by law. The above report was generated using voice recognition software. It may contain grammatical, syntax or spelling errors. Electronically signed by: Soham Kirby M.D. 12/07/2022 2:43 PM Chest X-Ray 12/07/22 14:18 XR chest 1V portable HISTORY: 72 years-old Female Sepsis acute sepsis COMPARISON: Left shoulder radiographs of same day, chest radiograph 11/15/2022 TECHNIQUE: AP view of the chest FINDINGS: Cardiac silhouette is enlarged. Right IJ central venous catheter is noted with distal tip in the expected location of the mid SVC. No pneumothorax, large pleural effusion or overt pulmonary edema. Mild right hemidiaphragmatic elevation. Chronic interstitial coarsening of the lung bases. Degenerative changes of the shoulders and spine. Surgical clips of the epigastric distribution. IMPRESSION: Cardiomegaly without acute process. ACT 112: Negative or not required by law. The above report was generated using voice recognition software. It may contain grammatical, syntax or spelling errors. Electronically signed by: Soham Kirby M.D. 12/07/2022 2:42 PM Medications Administered Medication List Discontinued Medications Sodium Chloride (Nss) 500 mls @ 999 mls/hr IV .Q31M ONE Stop: 12/07/22 14:47 Last Infusion: 12/07/22 15:54 Dose: 0 mls/hr Documented By: Admin: 12/07/22 15:05 Dose: 999 mls/hr Documented By: PAOLOW COVID-19 Results Results COVID-19 Adm Lab Results: RBC 3.71 M/uL (4.20-5.40) L 12/15/22 WBC 6.76 K/ul (4.8-10.8) 12/15/22 Hgb 10.9 g/dl (12.0-16.0) L 12/15/22 Hct 32.9 % (37.0-47.0) L 12/15/22 Plt Count 176 K/uL (130-400) 12/15/22 Neutrophils (%) (Auto) 51.9 % 12/08/22 Lymphocytes (%) (Auto) 27.8 % 12/08/22 Monocytes # (Auto) 0.40 K/uL (0.11-0.59) 12/08/22 Eosinophils # (Auto) 0.36 K/uL (0-0.50) 12/08/22 Immature Granulocyte % (Auto) 0.5 % 12/08/22 Neutrophils # (Auto) 2.08 K/uL (1.40-6.50) 12/08/22 Lymphocytes # (Auto) 1.11 K/uL (1.2-3.4) L 12/08/22 Monocytes # (Auto) 0.40 K/uL (0.11-0.59) 12/08/22 Eosinophils # (Auto) 0.36 K/uL (0-0.50) 12/08/22 Basophils # (Auto) 0.03 K/uL (0-0.2) 12/08/22 Immature Granulocyte # (Auto) 0.02 K/uL (0.01-0.20) 3 Na 141 mmol/L (136-145) 12/15/22 K 3.1 mmol/L (3.5-5.1) L 12/15/22 Cl 101 mmol/L (98-107) 12/15/22 CO2 33 mmol/L (21-32) H 12/15/22 Anion Gap 7 (3-11) 12/15/22 BUN 59 mg/dl (6-23) H 12/15/22 Creatinine 1.56 mg/dl (0.6-1.2) H 12/15/22 BUN/Creatinine Ratio 37.8 (10-20) H 12/15/22 Glucose Level 102 mg/dl (70-99(Fasting)) H 12/15/22 Ca 9.2 mg/dl (8.5-10.1) 12/15/22 Phosphorus Level 4.3 mg/dl (2.5-4.9) 12/10/22 Total Bilirubin 0.4 mg/dl (0.2-1.0) 12/08/22 Direct Bilirubin 0.1 mg/dl (0-0.2) 12/07/22 AST/SGOT 19 U/L (13-39) 12/08/22 ALT/SGPT 17 U/L (7-52) 12/08/22 Alkaline Phosphatase 77 U/L (34-104) 12/08/22 Total Protein 5.9 gm/dl (6.0-8.3) L 12/08/22 Albumin 3.3 gm/dl (3.4-5.0) L 12/08/22 Globulin 2.6 gm/dl (2.5-4.0) 12/08/22 Albumin/Globulin Ratio 1.3 (0.9-2) 12/08/22 Procalcitonin 0.05 ng/ml (0-0.5) 12/07/22 PTT 36.7 Seconds (21.0-31.0) H 12/07/22 INR 1.1 (0.9-1.1) 12/07/22 SARS-CoV-2, RNA, NAAT NEGATIVE (NEGATIVE) 12/07/22 Chest X-Ray 12/12/22 Code Status & VTE Plan Code Status FULL CODE VTE Prophylaxis Plan VTE Prophylaxis will be ordered: Yes Supervising Physician Co-Signing Physician Notes Pt seen and examined by me, care coordinated w/ Juan Welsh PA-C, pls see her note above for further detail. Pt is a 72 yo F w/chronic diastolic CHF, pulm hypertension, renal disease, COPD, LARRY, HLD, chronic pancreatitis, hyperparathyroidism, hypothyroidism, GERD, history of nephrolithiasis, RLS, enclosing spondylitis depression with anxiety who presents due to syncope x2 prior to arrival. She felt, "funny in the head," and the next thing she knew she was on the ground , both times. Due to recent ESBL UTI she was given empiric dose of IV ertapenem. urine and blood cultx - pending. In March pt hospitalized for poss. junctional rhythm. Currently pt is awake , alert able to answer simple questions appropriately. Lung sounds clear. Heart sounds regular, soft syst. murmur. Abdomen soft, obese, + bowel sounds. Pt moves extremities. Skin is warm dry. For now will continue antibiotics and will await urine and blood cultures. Will closely monitor on telemetry, will obtain echo and will further discuss with cardiology. MD Kaushal (3) Contusion of left shoulder Encounter type: initial encounter Qualified Code(s): S40.012A - Contusion of left shoulder, initial encounter
[2022-12-07] MEDS ORDERED: POTASSIUM CHLORIDE CRTAB 20 MEQ TABCR PO STA (17:27)
[2022-12-07] MEDS ORDERED: ALBUT/IPRATROP 3MG/0.5MG NEB 3 ML VIAL INH PRN (20:22)
[2022-12-07] MEDS ORDERED: SODIUM CHLORIDE 0.9% 1000ML 1,000 ML IV SCH (20:22)
[2022-12-07] MEDS ORDERED: ONDANSETRON INJ 2 MG/ML 2 ML VIAL IV PRN (20:22)
[2022-12-07] MEDS ORDERED: ALUMINUM/MAGNESIUM SUSP 30 ML UDC PO PRN (20:22)
[2022-12-07] MEDS ORDERED: MAGNESIUM HYDROXIDE SUSP 30 ML UDC PO PRN (20:22)
[2022-12-07] MEDS ORDERED: POLYETHYLENE (MIRALAX) 17 GM PACK PO PRN (20:22)
[2022-12-07] MEDS ORDERED: ALBUTEROL HFA 8 GM INHALER INH PRN (20:39)
[2022-12-07] MEDS: oxyCODONE/ACETAMINOPHEN 5mg/325mg TAB PO PRN (21:07)
[2022-12-07] MEDS: ENOXAPARIN INJ 40 MG/0.4 ML SYR SQ SCH (21:29)
[2022-12-07] MEDS: CALCITRIOL 0.25 MCG CAPSULE PO SCH (21:30)
[2022-12-07] MEDS: DULoxetine HCL 20 MG CAP PO SCH (21:31)
[2022-12-07] MEDS: lamoTRIgine 25 MG TAB PO SCH (21:31)
[2022-12-07] MEDS: CALCIUM CARBONATE 1250MG TAB PO SCH (21:31)
[2022-12-07] MEDS: POTASSIUM CHLORIDE CRTAB 20 MEQ TABCR PO SCH (21:32)
[2022-12-07] MEDS: PANTOprazole 40 MG TAB PO SCH (21:32)
[2022-12-07] MEDS: MONTELUKAST SODIUM 10 MG TABLET PO SCH (21:32)
[2022-12-07] MEDS: PREGABALIN 100 MG CAP PO SCH (21:33)
[2022-12-07] MEDS: rOPINIRole HCL 0.25 MG TABLET PO SCH (21:33)
[2022-12-07] MEDS: risperiDONE 2 MG TABLET PO SCH (21:33)
[2022-12-07] MEDS: DESIPRAMINE HCL 50 MG TAB PO SCH (21:34)
[2022-12-08] MEDS: oxyCODONE/ACETAMINOPHEN 5mg/325mg TAB PO PRN ×2 (03:31→16:03)
[2022-12-08] MEDS ORDERED: Nursing to Pharmacy Communication SCH (06:30)
--- NOTE | 2022-12-08 07:03 | Ultrasound Report ---
ULTRASOUND BILATERAL LOWER EXTREMITY VENOUS CLINICAL HISTORY: Lower extremity edema. COMPARISON STUDY: Bilateral lower extremity venous ultrasound dated 04/19/2020 TECHNIQUE: Real-time, grayscale, and color Doppler sonography of the deep veins of the right and left lower extremity was performed from the inguinal crease to the calf. Compression and augmentation wer e utilized. FINDINGS: There is no sonographic evidence of deep venous thrombosis identified in the right or left lower extremity. The common femoral, superficial femoral, and popliteal veins are patent and normally compressible bilaterally. The greater saphenous vein and the profunda femoris vein at the junction w ith the common femoral vein are clear in both legs. The visualized calf veins are patent bilaterally. A small right popliteal cyst measures 4.3 x 1.4 x 2.5 cm. IMPRESSION: 1. There is no sonographic evidence of deep venous thrombosis identified in the right or left lower e xtremity. 2. Right-sided Bey's cyst. ACT 112: Negative or not required by law. Electronically signed by: Chinedu Hicks M.D. 12/08/2022 7:01 AM
--- NOTE | 2022-12-08 07:08 | Ultrasound Report ---
ULTRASOUND OF THE CAROTID ARTERIES CLINICAL HISTORY: Syncope. COMPARISON STUDY: No priors. TECHNIQUE: Real-time, grayscale, and color Doppler sonography of the carotid arteries is performed. I mages are reviewed in the transverse and longitudinal planes. FINDINGS: The carotid arteries are patent bilaterally and demonstrate antegrade flow. There is no significant a therosclerotic plaque identified. Normal doppler arterial waveforms are seen throughout. Velocity pattie surements are listed below. Common carotid peak systolic velocity (cm/sec): RIGHT: 86 LEFT: 104 ICA proximal peak systolic velocity (cm/sec): RIGHT: 58 LEFT: 151 ICA mid peak systolic velocity (cm/sec): RIGHT: 69 LEFT: 78 ICA distal peak systolic velocity (cm/sec): RIGHT: 54 LEFT: 104 ICA/CC peak systolic ratio: RIGHT: 0.8 LEFT: 1.5 Antegrade flow was shown in the vertebral arteries. The external carotid arteries are patent. IMPRESSION: 1. There is no sonographic evidence of hemodynamically significant stenosis in the right or left romero tid arterial system. 2. Antegrade flow is shown in the vertebral arteries. ACT 112: Negative or not required by law. Electronically signed by: Chinedu Hicks M.D. 12/08/2022 7:07 AM
[2022-12-08 07:13] LABS: Basophils # (auto) 0.03 K/uL (0-0.2); Basophils % (auto) 0.8 %; Eosinophils # (auto) 0.36 K/uL (0-0.50); Hematocrit (blood only) 32.8 % (37.0-47.0); Hemoglobin 10.8 g/dl (12.0-16.0); Immature Granulocytes # (auto) 0.02 K/uL (0.01-0.20); Immature Granulocytes % (auto) 0.5 %; Lymphocytes # (auto) 1.11 K/uL (1.2-3.4); Lymphocytes % (auto) 27.8 %; Mean Corpuscular Hemoglobin 29.3 pg (25.0-34.0); Mean Corpuscular Hgb Conc 32.9 g/dL (32.0-36.0); Mean Corpuscular Volume 88.9 fL (80.0-100.0); Mean Platelet Volume 11.3 fL (9.4-12.4); Neutrophils # (auto) 2.08 K/uL (1.40-6.50); Neutrophils % (auto) 51.9 %; Platelet Count 159 K/uL (130-400); RDW Coefficient of Variation 14.7 % (11.5-14.5); RDW Standard Deviation 47.7 fL (36.4-46.3); Red Blood Count 3.69 M/uL (4.20-5.40)
[2022-12-08 07:48] LABS: Alanine Aminotransferase 17 U/L (7-52); Albumin Globulin Ratio 1.3 (0.9-2); Albumin Level 3.3 gm/dl (3.4-5.0); Alkaline Phosphatase 77 U/L (34-104); Anion Gap 4 (3-11); BUN Creatinine Ratio 35.7 (10-20); Bilirubin,Total 0.4 mg/dl (0.2-1.0); Blood Urea Nitrogen 50 mg/dl (6-23); Calcium 8.9 mg/dl (8.5-10.1); Carbon Dioxide 31 mmol/L (21-32); Chloride 105 mmol/L (98-107); Creatinine Clr Calc Pharmacy 37.9 ml/min; Globulin 2.6 gm/dl (2.5-4.0); Glucose 81 mg/dl (70-99(Fasting)); Magnesium 1.9 mg/dl (1.7-2.4); Sodium 140 mmol/L (136-145); Total Protein 5.9 gm/dl (6.0-8.3)
[2022-12-08] MEDS ORDERED: NON-FORMULARY MEDICATION (Fluticasone-Umeclidin-Vilanter [Trelegy Ellipta] 100-62.5-25 mcg INH SCH (09:00)
[2022-12-08] MEDS: PREGABALIN 100 MG CAP PO SCH ×3 (09:48→22:11)
[2022-12-08] MEDS: CALCIUM CARBONATE 1250MG TAB PO SCH ×3 (09:49→22:08)
[2022-12-08] MEDS: CALCITRIOL 0.25 MCG CAPSULE PO SCH ×2 (09:49→22:09)
[2022-12-08] MEDS: DESIPRAMINE HCL 50 MG TAB PO SCH ×2 (09:50→22:09)
[2022-12-08] MEDS: PANTOprazole 40 MG TAB PO SCH ×2 (09:50→22:09)
[2022-12-08] MEDS: POTASSIUM CHLORIDE CRTAB 20 MEQ TABCR PO SCH ×3 (09:50→22:09)
[2022-12-08] MEDS: lamoTRIgine 25 MG TAB PO SCH ×2 (09:50→22:09)
[2022-12-08] MEDS: ROSUVASTATIN CALCIUM 10 MG TAB PO SCH (09:51)
[2022-12-08] MEDS: TAMSULOSIN HCL 0.4 MG CAP PO SCH (09:51)
[2022-12-08] MEDS: CEROVITE ADV FORMULA TAB PO SCH (09:51)
[2022-12-08] MEDS: valACYclovir HCL 500 MG TABLET PO SCH (09:52)
[2022-12-08] MEDS: ESCITALOPRAM OXALATE 20 MG TAB PO SCH (09:52)
[2022-12-08] MEDS: LEVOTHYROXINE SODIUM 88 MCG TABLET PO SCH (09:52)
[2022-12-08] MEDS: CYANOCOBALAMIN (B-12) 500 MCG TABLET PO SCH (09:52)
[2022-12-08] MEDS: FLUTICASONE FUROATE 100MCG 14 PUFFS/INHALER INH SCH (09:53)
[2022-12-08] MEDS: CHOLECALCIFEROL 1,000 UNITS 25 MCG TAB PO SCH (09:53)
[2022-12-08] MEDS: UMECLIDINIUM/VILANTEROL 62.5/25MCG 7 PUFFS/INHALER INH SCH (09:54)
[2022-12-08 10:16] LABS: Potassium 3.3 mmol/L (3.5-5.1)
--- NOTE | 2022-12-08 11:23 | XCELERA ---
[id number]
--- NOTE | 2022-12-08 11:29 | Cardiology Consultation ---
Date of Consultation December 08, 2022 Assessment & Plan (1) Near syncope: (2) Junctional bradycardia: (3) Exertional shortness of breath: Plan 1. Near syncope (with possible syncope): This is most likely due to bradycardia although we have not been able to prove that. It seems that she has not had these symptoms while wearing a monitor although they are relatively frequent. I discussed various plans with her, I think we need to is a minimum document her rhythm. Her symptoms are increasing in frequency and now are quite frequent and she feels that they would almost certainly be picked up on a 30-day monitor. She would prefer that approach. 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 She would prefer not to do that unless she has some assurance that that is the problem. I would therefore recommend a 30-day monitor when she goes home, which I can arrange through the office. 2. History of junctional bradycardia: She did have a history of junctional bradycardia identified several years ago, but it did not seem to cause the significant symptoms that she has now. I suspect that she has ongoing sinus node dysfunction (which we saw as a single pause and junctional beat on telemetry this admission) and will likely need a pacemaker. We should document that as a cause of her symptoms however and I suspect that we can do that with a 30-day monitor. 3. Dyspnea on exertion: She has a very blunted heart rate response, which would be consistent with sinus node dysfunction, including on pharmacologic stress testing where her heart rate remained well below target as far back as 2018. I suspect her difficulty with exertion is due to poor heart rate response which could be corrected with a rate responsive pacemaker. History of Present Illness Reason for Consultation: Presyncope and falling Attending Physician: Kenny Easley MD History of Present Illness This is a 72-year-old woman who presented in March 2022 with chest discomfort and shortness of breath and had heart rates in the 40s, this appeared to be a junctional rhythm. Lyme studies were equivocal but she was treated with doxycycline. I do not believe heart block was present. She has a background diagnosis of diastolic congestive heart failure and had a preserved left ventricular ejection fraction with no valvular abnormalities. Catheterization had been done for atypical chest discomfort and a nondiagnostic stress test on August 17, 2019 and showed normal coronary arteries. A Holter monitor was done from April 01, 2022 through April 04, 2022 with a heart rate ranging from 58 to 78 bpm with an average of 67 (quite blunted) but no junctional rhythm identified. She presented here on November 20, 2022 with weakness, dizziness and falling. I believe this was felt to be secondary to a UTI. She presented again on December 07, 2022 with near syncope. She became very dizzy and lightheadedness and fell to the ground injuring her left shoulder, it is possible she passed out but that is not clear. This happened twice before she came into the emergency room. Evaluation in the emergency room included an electrocardiogram which showed sinus bradycardia with first-degree AV block, a repeat electrocardiogram this morning shows a similar finding. I do not believe her rhythm has been documented during her symptoms. She describes to me symptoms noted above. She feels the symptoms are becoming more frequent and perhaps more severe, sometimes she will have several in a day, usually a few days between them. She has had none during this hospitalization and telemetry has shown occasional sinus pauses and occasional blocked premature atrial beats. Currently she has no cardiovascular complaints. Allergies Allergy/AdvReac Type Severity Reaction Status Date / Time bethanechol Allergy Intermediate RASH, Verified 12/07/22 16:56 "FEELS FUNNY" Cephalosporins Allergy Intermediate RASH, Verified 12/07/22 15:30 DIARRHEA levofloxacin Allergy Intermediate RASH,TURNED Verified 12/07/22 15:30 RED Sulfa (Sulfonamide Allergy Intermediate Generalized Verified 12/07/22 15:30 Antibiotics) Rash ertapenem Allergy Mild RASH Verified 12/07/22 16:57 clindamycin Allergy Unknown Unknown Verified 12/07/22 15:30 dipyridamole Allergy Unknown UNKNOWN Verified 12/07/22 15:30 droperidol Allergy Unknown Unknown Verified 12/07/22 15:30 promethazine Allergy Unknown UNKNOWN Verified 12/07/22 15:30 tobramycin Allergy Unknown UNKNOWN Verified 12/07/22 15:30 aspirin AdvReac Severe BLEEDING Verified 12/07/22 15:30 doxycycline AdvReac Severe severe Verified 12/07/22 15:30 Diarrhea, nausea metolazone AdvReac Severe ELECTROLYTE Verified 12/07/22 15:30 ISSUES bupropion AdvReac Intermediate NERVOUS Verified 12/07/22 15:30 REACTION cephalexin AdvReac Intermediate GI SYMPTOMS Verified 12/07/22 15:30 morphine AdvReac Intermediate NERVOUS Verified 12/07/22 15:30 REACTION TO IT nitrofurantoin AdvReac Intermediate Vomiting Verified 12/07/22 15:30 [From Macrobid] prochlorperazine AdvReac Intermediate NERVOUS Verified 12/07/22 15:30 REACTION tedizolid AdvReac Intermediate GI SYMPTOMS Verified 12/07/22 15:30 Home Medications Medication Instructions Recorded Confirmed Type colesevelam 625 mg tablet (WelChol) 625 mg PO TID 06/17/18 12/07/22 History montelukast 10 mg tablet 10 mg PO HS 06/17/18 12/07/22 History (Singulair) ipratropium 0.5 mg-albuterol 3 mg 3 ml inhalation Q4H PRN Shortness 05/05/19 12/07/22 History (2.5 mg base)/3 mL nebulization Of Breath Or Wheezing soln vxfvxo-rlgptmvw-gpuxiwn 4 cap PO TID 05/05/19 12/07/22 History 24,000-76,000-120,000 unit capsule,delayed rel (Creon) omeprazole magnesium 20 mg 20 mg PO BID 05/17/19 12/07/22 History tablet,delayed release (Prilosec OTC) mecobalamin (vitamin B12) 1,000 1,000 mcg PO QAM 01/21/21 12/07/22 History mcg disintegrating tablet,sublingual risperidone 2 mg tablet 2 mg PO HS 02/27/21 12/07/22 History potassium chloride 10 mEq 10 meq PO TID 12/04/21 12/07/22 History capsule,extended release desipramine 50 mg tablet 50 mg PO BID 01/23/22 12/07/22 History levothyroxine 88 mcg tablet 88 mcg PO QAM 05/19/22 12/07/22 History calcitriol 0.5 mcg capsule 0.5 mcg PO BID #60 caps 07/02/22 12/07/22 Rx calcium carbonate 600 mg calcium 1,200 mg PO TID #180 tabs 07/02/22 12/07/22 Rx (1,500 mg) tablet (Calcium) albuterol sulfate 90 mcg/actuation 2 inh inhalation Q6H PRN Shortness 07/31/22 12/07/22 Rx breath activated powder inhaler Of Breath Or Wheezing #1 ea fluticasone fur. 100 mcg-umeclid 1 inh inhalation QAM #60 ea 07/31/22 12/07/22 Rx 62.5 mcg-vilant 25 mcg inhalat.powder (Trelegy Ellipta) pregabalin 100 mg capsule 100 mg PO TID #90 caps 10/01/22 12/07/22 Rx duloxetine 20 mg capsule,delayed 20 mg PO HS #30 caps 10/29/22 12/07/22 Rx release (Cymbalta) lamotrigine 25 mg tablet 25 mg PO BID #60 tabs 11/06/22 12/07/22 Rx lorazepam 0.5 mg tablet 0.5 mg PO BID PRN Anxiety 11/06/22 12/07/22 History cholecalciferol (vitamin D3) 25 50 mcg PO DAILY 11/15/22 12/07/22 History mcg (1,000 unit) capsule (Vitamin D3) escitalopram oxalate 20 mg tablet 20 mg PO QAM 11/15/22 12/07/22 History metolazone 2.5 mg tablet 2.5 mg PO DAILY PRN WT >199 LBS. 11/15/22 12/07/22 History opfbdzyvnwoe-mfwqsxkm-ofdhia tablet 1 tab PO DAILY 11/15/22 12/07/22 History oxycodone-acetaminophen 5 mg-325 1 tab PO Q6H PRN Pain 11/15/22 12/07/22 History mg tablet (Percocet) ropinirole 0.5 mg tablet 0.5 mg PO HS 11/15/22 12/07/22 History rosuvastatin 10 mg tablet 10 mg PO DAILY 11/15/22 12/07/22 History tamsulosin 0.4 mg capsule (Flomax) 0.4 mg PO DAILY 11/15/22 12/07/22 History torsemide 20 mg tablet 40 mg PO BID 11/15/22 12/07/22 History valacyclovir 500 mg tablet 500 mg PO DAILY 11/15/22 12/07/22 History Patient History Medical History Asthma Atherosclerosis of both lower extremities Chronic diastolic (congestive) heart failure Hospitalized March 2022 Follows w/[facility] (Dr. Otoole), EF 55-60% Chronic kidney disease stage 3b Chronic sinusitis Chronic urinary tract infection Chronic venous insufficiency COPD (chronic obstructive pulmonary disease) Depression GERD without esophagitis H/O concussion "a long time ago" History of anemia History of esophageal dilatation Hyperlipidemia per records Hypothyroidism Incisional hernia Abdominal (from multiple surgeries/feeding tube) Kidney stones Lumbar transverse process fracture Pt reports lower back detioriating - can't lie flat/sleep on a chair MRSA (methicillin resistant staph aureus) culture positive History of Left wrist Had 3 nasal swab and all negative (through [facility] per pt) Obesity Osteoporosis Pancreatic insufficiency chronic pancreatitis Peripheral neuropathy Port-A-Cath in place right side due to poor vascular access PUD (peptic ulcer disease) Had feeding tube for 28 years (has been removed for 11 years) Pulmonary hypertension mild per 07/[address] report PVC (premature ventricular contraction) Reactive hypoglycemia Secondary hyperparathyroidism Sepsis 05/2020 @ [facility], urosepsis 2/2 obstructing renal stone, S/P cysto/stent and ESWL Short bowel syndrome Sleep apnea complex sleep apnea, BIPAP *has not used it, can't get used to wearing a mask SOB (shortness of breath) on exertion Trouble swallowing hx egd with dilation / "narrowing" Urinary leakage Wrist injury Scar tissue surrounding remote wrist ORIF several years ago resulting in intermittent inflammation per pt Surgical History H/O shoulder surgery RT arthroscopy 05/28/2021: LMA#4 atraumatic x 1 + PNB. Anesthesia postop progress note: "Pt denies SOB at this time. Block is functioning well. Vital signs stable and appropriate. Oxygenating well considering block placement and her comorbidities. Plan to discharge home with IS." History of appendectomy History of cardiac cath 08/2019 ([facility]): essentially normal coronary arteries angiographically, + luminal irregularities. no stents History of cholecystectomy History of colonoscopy History of cystoscopy multiple History of esophagogastroduodenoscopy (EGD) History of gastrointestinal surgery multiple History of joint replacement Rt thumb History of knee replacement procedure of right knee History of open reduction and internal fixation (ORIF) procedure left wrist + manipulation (01/2018) and I&D (10/2019) History of partial gastrectomy History of prior ablation treatment Right LE in January 2020 and left LE 04/18/20 History of sinus surgery History of tonsillectomy and adenoidectomy History of total abdominal hysterectomy and bilateral salpingo-oophorectomy S/P right rotator cuff repair S/P ureteral stent placement Status post laser lithotripsy of ureteral calculus most recent litho nov 2021 04/29/2021: LMA#4 atraumatic x 1. [facility]. 03/01/2021: LMA#4 atraumatic x 1. [facility]. 02/04/2021: LMA#4 atraumatic x 1. [facility]. 07/04/2020: LMA#4 atraumatic x 1. [facility]. No issues per anesthesia postop progress notes. Family History Mother Family history of diabetes mellitus Sister Family history of diabetes mellitus Family history of breast cancer Father Esophageal cancer Other Family history non-contributory No family history of adverse response to anesthesia Social History Smoking Status: Never smoker Second Hand Exposure: Yes ( A CHILD); Hx Alcohol Use: No Hx Substance Use: No Preferred Language: Kiswahili Communication Ability: Effective Visual Impairment: No Limitations Lobby Porter Required: No Beliefs That Will Affect Care: None marital status: Single Current Living Situation: Alone Current Living Situation Comment: APARTMENT COMPLEX>FRIENDS ALL AROUND How many Children do You have: 0 Feels Safe at Home: Yes Safety Concerns: Feels Safe At This Time Assistive Devices: Walker Review of Systems Review of Systems: Review of systems was performed and is notable as in the HPI and elsewhere in the chart. Physical Exam Physical Exam: Constitutional: Alert, cooperative and in no distress. HEENT: Unremarkable Neck: No jugular venous distention, carotid pulses are normal and equal bilaterally without bruits. Pulmonary: Clear to auscultation bilaterally. Cardiac: Regular rhythm with no murmur, gallop or rub. Abdomen: Soft, nontender with normal bowel sounds. Extremities: No edema. Distal pulses intact. Neurologic: No focal findings. Gait is steady. Skin: No rash, ecchymoses or petechiae. Results & Data ([facility]) Vital Signs (Past 12 Hours) Vital Signs Temp Pulse Resp BP BP Pulse Ox O2 Del Method 12/08/22 11:13 35.4 C L 60 18 112/66 97 Room Air 12/08/22 07:55 35.3 C L 59 L 18 93/62 L 96 Room Air 12/08/22 03:13 36.6 C 55 L 18 108/70 96 Room Air 12/07/22 23:54 Room Air Laboratory Results Cardiac Enzymes 12/07/22 12/08/22 12/08/22 Range/Units 14: 06:25 09:47 AST 22 TNP 19 (13-39) U/L Troponin I High Sens 12.9 (0-14) pg/ml Coagulation 12/07/22 Range/Units 14: PT 11.3 (9.0-12.0) Seconds APTT 36.7 H (21.0-31.0) Seconds CBC 12/07/22 12/08/22 Range/Units 14: 06:25 WBC 6.59 4.00 L (4.8-10.8) K/ul RBC 3.73 L 3.69 L (4.20-5.40) M/uL Hgb 11.0 L 10.8 L (12.0-16.0) g/dl Hct 32.9 L 32.8 L (37.0-47.0) % Plt Count 177 159 (130-400) K/uL Neut # (Auto) 4.01 2.08 (1.40-6.50) K/uL Lymph # (Auto) 1.49 1.11 L (1.2-3.4) K/uL Rowan # (Auto) 0.62 H 0.40 (0.11-0.59) K/uL Eos # (Auto) 0.38 0.36 (0-0.50) K/uL Baso # (Auto) 0.06 0.03 (0-0.2) K/uL Comprehensive Metabolic Panel 12/07/22 12/08/22 12/08/22 Range/Units 14:22 06:25 09:47 Sodium 137 140 (136-145) mmol/L Potassium 3.2 L TNP 3.3 L (3.5-5.1) mmol/L Chloride 102 105 (98-107) mmol/L Carbon Dioxide 28 31 (21-32) mmol/L BUN 50 H 50 H (6-23) mg/dl Creatinine 1.43 H 1.40 H (0.6-1.2) mg/dl Glucose 109 H 81 (70-99(Fasting)) mg/dl Calcium 9.1 8.9 (8.5-10.1) mg/dl Direct Bilirubin 0.1 (0-0.2) mg/dl AST 22 TNP 19 (13-39) U/L ALT 18 17 (7-52) U/L Alkaline Phosphatase 80 77 (34-104) U/L Total Protein 6.3 5.9 L (6.0-8.3) gm/dl Albumin 3.7 3.3 L (3.4-5.0) gm/dl Intake and Output 12/07/22 12/08/22 12/08/22 22:59 06:59 14:59 Intake Total 500 / 700 200 / 700 1000 / 1000 Output Total Balance 500 / 700 200 / 700 999 / 999 Intake: IV 500 / 500 1000 / 1000 Sodium Chloride 0.9% 1000ML 1, 1000 / 1000 000 ml @ 80 mls/hr IV .[id number] [facility] Rx#:[id number] Sodium Chloride 0.9% 500 ml @ 500 / 500 999 mls/hr IV .Q31M ONE Rx#: [id number] Oral 200 / 200 Output: # Bowel Movements Other: Weight 89 kg Weight Measurement Method Built in [facility] Diagnostic Findings Telemetry: Sinus rhythm with occasional sinus pauses followed by junctional beat, nothing significant so far. Very blunted heart rate trend with very little diurnal heart rate variation. PG Care Time/CCT Total # of Minutes Spent Total Time Spent with Patient: Total time spent is greater than 50% in coordination of care (as documented) at patient's floor/unit and/or counseling patient: Coding Level of Care Code 17892 INT INP/OBS CARE 3/75MIN Diagnoses Near syncope R55 Junctional bradycardia R00.1 Exertional shortness of breath R06.02
--- NOTE | 2022-12-08 12:06 | Hospitalist Progress Note ---
Date of Service December 08, 2022 Assessment & Plan (1) Near syncope: (2) Fall: (3) Contusion of left shoulder: (4) JAVI (acute kidney injury): Plan 72-year-old female with chronic diastolic CHF, pulm hypertension, renal disease, COPD, LARRY, hyperlipidemia, chronic pancreatitis, hyperparathyroidism, hypothyroidism, GERD, history of nephrolithiasis, RLS, enclosing spondylitis depression with anxiety who presents to ED secondary to syncope x2 prior to arrival. Fall, syncope likely 2/2 bradycardia/ sinus pause pt with 2 falls on day of admission Reports "funny feeling" in her head, "blacking out" prior to falling Hx of poss. junctional rhythm per her admission in March 2022 pt reports frequent falls in the last year with recent worsening no recent med changes will w/u syncope with echo, carotid doppler, orthostatics (negative in ED; however after IVF bolus) carotid dppler - unremarkable Echo - no change Sinus pause on telemetry, about 3 seconds noted, patient feeling short of breath and having chest discomfort Discussed with cardiology at the bedside, will plan for pacemaker placement, likely tomorrow Chronic diastolic heart failure Sinus Bradycardia, hx of junctional rhythm No sign of volume overload Continue monitor hold torsemide off negative chronotropic agents [facility] consulted (pt follows Dr. Otoole), plan as above Recent hx of Complicated ESBL UTI continue empiric IV ertapenem await urine and blood culture - negative thus far JAVI on CKD 3 Creatinine increased to 1.5, was 1.1 at discharge hold torsemide gentle IVF Avoid nephrotoxic agents Follows with [facility] L Shoulder injury XR L shoulder - Chronic appearing left-sided rib fractures. Mild osteoarthritis of the left shoulder without acute fracture, dislocation or osseous erosion. pt follows [facility] - consult ? RC tear and possible bicep tear ICE, elevate, make NWB for now Peripheral neuropathy Lamictal recently added by neurology Continue pregabalin and duloxetine ? if causing freq falls Hypokalemia Potassium 3.2 on admission replete and monitor increase supplement to 20meq tid COPD LARRY- noncompliant with cpap stable DVT prophylaxis. Lovenox subcu Full code Disposition - telemetry Admission and Anticipated Discharge Date Admission Date: December 07, 2022 Subjective Patient seen in follow-up of fall, syncope Currently laying in bed, however reports feeling short of breath and having chest discomfort after coming from the bathroom Currently at the bedside with cardiology She did have a pause on monitor, and we are discussing placing a pacemaker, possibly tomorrow, patient in agreement Patient denies fevers chills abdominal pain, she does have shoulder pain Review of Systems Review of Systems: All systems reviewed & are unremarkable except as noted in Subjective Physical Exam Physical Exam: Constitutional: elderly obese F laying in bed in some distress Head: Normocephalic, Atraumatic Eyes: PERRL, conjunctivae normal, anicteric sclerae ENMT: external ear and nose normal, oropharynx normal dry mucus membranes Neck: normal visual inspection Respiratory: +rhonchi (velcro like sounds - seem chronic per pulmonary outpt note). Cardiovascular: RRR, 2/6 pati, b/l +1 edema, no pain to palp no edema Chest: normal inspection of chest RACW port a cath Abdomen: normal bowel sounds, soft, nontender Musculoskeletal:+ L shoulder ecchymosis, + tender to palp. or movement Skin: no rashes, warm and dry normal turgor Neurologic: PERRL, EOMI, no face palsy, speech fluent, moves all extremities Psychiatric: A+Ox3, euthymic affect Results & Data Results & Data ([facility]) Vital Signs (Past 12 Hours) Vital Signs Temp Pulse Resp BP BP Pulse Ox O2 Del Method 12/08/22 11:13 35.4 C L 60 18 112/66 97 Room Air 12/08/22 07:55 35.3 C L 59 L 18 93/62 L 96 Room Air 12/08/22 03:13 36.6 C 55 L 18 108/70 96 Room Air Laboratory Results 12/08/22 12/08/22 12/08/22 Range/Units 09:47 06:25 06:25 WBC 4.00 L (4.8-10.8) K/ul RBC 3.69 L (4.20-5.40) M/uL Hgb 10.8 L (12.0-16.0) g/dl Hct 32.8 L (37.0-47.0) % MCV 88.9 (80.0-100.0) fL MCH 29.3 (25.0-34.0) pg MCHC 32.9 (32.0-36.0) g/dL RDW Std Deviation 47.7 H (36.4-46.3) fL RDW Coeff of David 14.7 H (11.5-14.5) % Plt Count 159 (130-400) K/uL MPV 11.3 (9.4-12.4) fL Immature Gran % (Auto) 0.5 % Neut % (Auto) 51.9 % Lymph % (Auto) 27.8 % Wilkes % (Auto) 10.0 % Eos % (Auto) 9.0 % Baso % (Auto) 0.8 % Neut # (Auto) 2.08 (1.40-6.50) K/uL Lymph # (Auto) 1.11 L (1.2-3.4) K/uL Wilkes # (Auto) 0.40 (0.11-0.59) K/uL Eos # (Auto) 0.36 (0-0.50) K/uL Baso # (Auto) 0.03 (0-0.2) K/uL Immature Gran # (Auto) 0.02 (0.01-0.20) K/uL PT (9.0-12.0) Seconds INR (0.9-1.1) APTT (21.0-31.0) Seconds PTT Ratio VBG pH (7.36-7.41) VBG pCO2 (38-50) mmHg VBG pO2 mmHg VBG HCO3 mmol/L VBG O2 Saturation % VBG Base Excess mEq/L Sodium 140 (136-145) mmol/L Potassium 3.3 L TNP (3.5-5.1) mmol/L Chloride 105 (98-107) mmol/L Carbon Dioxide 31 (21-32) mmol/L Anion Gap 4 (3-11) BUN 50 H (6-23) mg/dl Creatinine 1.40 H (0.6-1.2) mg/dl Est Cr Clr Drug Dosing 37.9 ml/min Est GFR ( Amer) 44.0 ml/min Est GFR (Non-Af Amer) 38.0 ml/min BUN/Creatinine Ratio 35.7 H (10-20) Glucose 81 (70-99(Fasting)) mg/dl Lactate (0.4-2.0) mmol/L Calcium 8.9 (8.5-10.1) mg/dl Magnesium 1.9 (1.7-2.4) mg/dl Total Bilirubin 0.4 (0.2-1.0) mg/dl Direct Bilirubin (0-0.2) mg/dl AST 19 TNP (13-39) U/L ALT 17 (7-52) U/L Alkaline Phosphatase 77 (34-104) U/L Troponin I High Sens (0-14) pg/ml Total Protein 5.9 L (6.0-8.3) gm/dl Albumin 3.3 L (3.4-5.0) gm/dl Globulin 2.6 (2.5-4.0) gm/dl Albumin/Globulin Ratio 1.3 (0.9-2) Procalcitonin (0-0.5) ng/ml Urine Color Urine Appearance (Clear) Urine pH (4.5-7.5) Ur Specific [place] (1.000-1.030) Urine Protein (Negative) Urine Glucose (UA) (Negative) Urine Ketones (Negative) Urine Blood (Negative) Urine Nitrite (Negative) Urine Bilirubin (Negative) Urine Urobilinogen (Negative) Ur Leukocyte Esterase (Negative) Urine WBC (Auto) (0-5) /hpf Urine RBC (Auto) (0-4) /hpf U Hyaline Cast (Auto) (0-5) /lpf U Epithel Cells (Auto) (0-5) /lpf Urine Bacteria (Auto) (Negative) SARS-CoV-2, RNA, NAAT (NEGATIVE) 12/07/22 12/07/22 12/07/22 Range/Units 16:10 15:04 14:46 WBC (4.8-10.8) K/ul RBC (4.20-5.40) M/uL Hgb (12.0-16.0) g/dl Hct (37.0-47.0) % MCV (80.0-100.0) fL MCH (25.0-34.0) pg MCHC (32.0-36.0) g/dL RDW Std Deviation (36.4-46.3) fL RDW Coeff of David (11.5-14.5) % Plt Count (130-400) K/uL MPV (9.4-12.4) fL Immature Gran % (Auto) % Neut % (Auto) % Lymph % (Auto) % Wilkes % (Auto) % Eos % (Auto) % Baso % (Auto) % Neut # (Auto) (1.40-6.50) K/uL Lymph # (Auto) (1.2-3.4) K/uL Wilkes # (Auto) (0.11-0.59) K/uL Eos # (Auto) (0-0.50) K/uL Baso # (Auto) (0-0.2) K/uL Immature Gran # (Auto) (0.01-0.20) K/uL PT (9.0-12.0) Seconds INR (0.9-1.1) APTT (21.0-31.0) Seconds PTT Ratio VBG pH 7.37 (7.36-7.41) VBG pCO2 52 H (38-50) mmHg VBG pO2 44 mmHg VBG HCO3 30 mmol/L VBG O2 Saturation 73.5 % VBG Base Excess 3.6 mEq/L Sodium (136-145) mmol/L Potassium (3.5-5.1) mmol/L Chloride (98-107) mmol/L Carbon Dioxide (21-32) mmol/L Anion Gap (3-11) BUN (6-23) mg/dl Creatinine (0.6-1.2) mg/dl Est Cr Clr Drug Dosing ml/min Est GFR ( Amer) ml/min Est GFR (Non-Af Amer) ml/min BUN/Creatinine Ratio (10-20) Glucose (70-99(Fasting)) mg/dl Lactate (0.4-2.0) mmol/L Calcium (8.5-10.1) mg/dl Magnesium (1.7-2.4) mg/dl Total Bilirubin (0.2-1.0) mg/dl Direct Bilirubin (0-0.2) mg/dl AST (13-39) U/L ALT (7-52) U/L Alkaline Phosphatase (34-104) U/L Troponin I High Sens (0-14) pg/ml Total Protein (6.0-8.3) gm/dl Albumin (3.4-5.0) gm/dl Globulin (2.5-4.0) gm/dl Albumin/Globulin Ratio (0.9-2) Procalcitonin (0-0.5) ng/ml Urine Color Yellow Urine Appearance Clear (Clear) Urine pH 6.0 (4.5-7.5) Ur Specific [place] 1.007 (1.000-1.030) Urine Protein Negative (Negative) Urine Glucose (UA) Negative (Negative) Urine Ketones Negative (Negative) Urine Blood Negative (Negative) Urine Nitrite Negative (Negative) Urine Bilirubin Negative (Negative) Urine Urobilinogen Negative (Negative) Ur Leukocyte Esterase 2+ H (Negative) Urine WBC (Auto) 10-30 H (0-5) /hpf Urine RBC (Auto) 0-4 (0-4) /hpf U Hyaline Cast (Auto) 0 (0-5) /lpf U Epithel Cells (Auto) 10-20 H (0-5) /lpf Urine Bacteria (Auto) Negative (Negative) SARS-CoV-2, RNA, NAAT NEGATIVE (NEGATIVE) 12/07/22 12/07/22 12/07/22 Range/Units 14:46 14:22 14:22 WBC (4.8-10.8) K/ul RBC (4.20-5.40) M/uL Hgb (12.0-16.0) g/dl Hct (37.0-47.0) % MCV (80.0-100.0) fL MCH (25.0-34.0) pg MCHC (32.0-36.0) g/dL RDW Std Deviation (36.4-46.3) fL RDW Coeff of David (11.5-14.5) % Plt Count (130-400) K/uL MPV (9.4-12.4) fL Immature Gran % (Auto) % Neut % (Auto) % Lymph % (Auto) % Wilkes % (Auto) % Eos % (Auto) % Baso % (Auto) % Neut # (Auto) (1.40-6.50) K/uL Lymph # (Auto) (1.2-3.4) K/uL Wilkes # (Auto) (0.11-0.59) K/uL Eos # (Auto) (0-0.50) K/uL Baso # (Auto) (0-0.2) K/uL Immature Gran # (Auto) (0.01-0.20) K/uL PT (9.0-12.0) Seconds INR (0.9-1.1) APTT (21.0-31.0) Seconds PTT Ratio VBG pH (7.36-7.41) VBG pCO2 (38-50) mmHg VBG pO2 mmHg VBG HCO3 mmol/L VBG O2 Saturation % VBG Base Excess mEq/L Sodium 137 (136-145) mmol/L Potassium 3.2 L (3.5-5.1) mmol/L Chloride 102 (98-107) mmol/L Carbon Dioxide 28 (21-32) mmol/L Anion Gap 7 (3-11) BUN 50 H (6-23) mg/dl Creatinine 1.43 H (0.6-1.2) mg/dl Est Cr Clr Drug Dosing 37.1 ml/min Est GFR ( Amer) 42.9 ml/min Est GFR (Non-Af Amer) 37.0 ml/min BUN/Creatinine Ratio 35.0 H (10-20) Glucose 109 H (70-99(Fasting)) mg/dl Lactate 0.5 (0.4-2.0) mmol/L Calcium 9.1 (8.5-10.1) mg/dl Magnesium 2.0 (1.7-2.4) mg/dl Total Bilirubin 0.5 (0.2-1.0) mg/dl Direct Bilirubin 0.1 (0-0.2) mg/dl AST 22 (13-39) U/L ALT 18 (7-52) U/L Alkaline Phosphatase 80 (34-104) U/L Troponin I High Sens 12.9 (0-14) pg/ml Total Protein 6.3 (6.0-8.3) gm/dl Albumin 3.7 (3.4-5.0) gm/dl Globulin (2.5-4.0) gm/dl Albumin/Globulin Ratio (0.9-2) Procalcitonin 0.05 (0-0.5) ng/ml Urine Color Urine Appearance (Clear) Urine pH (4.5-7.5) Ur Specific [place] (1.000-1.030) Urine Protein (Negative) Urine Glucose (UA) (Negative) Urine Ketones (Negative) Urine Blood (Negative) Urine Nitrite (Negative) Urine Bilirubin (Negative) Urine Urobilinogen (Negative) Ur Leukocyte Esterase (Negative) Urine WBC (Auto) (0-5) /hpf Urine RBC (Auto) (0-4) /hpf U Hyaline Cast (Auto) (0-5) /lpf U Epithel Cells (Auto) (0-5) /lpf Urine Bacteria (Auto) (Negative) SARS-CoV-2, RNA, NAAT (NEGATIVE) 12/07/22 12/07/22 Range/Units 14:22 14:22 WBC 6.59 (4.8-10.8) K/ul RBC 3.73 L (4.20-5.40) M/uL Hgb 11.0 L (12.0-16.0) g/dl Hct 32.9 L (37.0-47.0) % MCV 88.2 (80.0-100.0) fL MCH 29.5 (25.0-34.0) pg MCHC 33.4 (32.0-36.0) g/dL RDW Std Deviation 47.8 H (36.4-46.3) fL RDW Coeff of David 14.9 H (11.5-14.5) % Plt Count 177 (130-400) K/uL MPV 10.9 (9.4-12.4) fL Immature Gran % (Auto) 0.5 % Neut % (Auto) 60.8 % Lymph % (Auto) 22.6 % Wilkes % (Auto) 9.4 % Eos % (Auto) 5.8 % Baso % (Auto) 0.9 % Neut # (Auto) 4.01 (1.40-6.50) K/uL Lymph # (Auto) 1.49 (1.2-3.4) K/uL Wilkes # (Auto) 0.62 H (0.11-0.59) K/uL Eos # (Auto) 0.38 (0-0.50) K/uL Baso # (Auto) 0.06 (0-0.2) K/uL Immature Gran # (Auto) 0.03 (0.01-0.20) K/uL PT 11.3 (9.0-12.0) Seconds INR 1.1 (0.9-1.1) APTT 36.7 H (21.0-31.0) Seconds PTT Ratio 1.3 VBG pH (7.36-7.41) VBG pCO2 (38-50) mmHg VBG pO2 mmHg VBG HCO3 mmol/L VBG O2 Saturation % VBG Base Excess mEq/L Sodium (136-145) mmol/L Potassium (3.5-5.1) mmol/L Chloride (98-107) mmol/L Carbon Dioxide (21-32) mmol/L Anion Gap (3-11) BUN (6-23) mg/dl Creatinine (0.6-1.2) mg/dl Est Cr Clr Drug Dosing ml/min Est GFR ( Amer) ml/min Est GFR (Non-Af Amer) ml/min BUN/Creatinine Ratio (10-20) Glucose (70-99(Fasting)) mg/dl Lactate (0.4-2.0) mmol/L Calcium (8.5-10.1) mg/dl Magnesium (1.7-2.4) mg/dl Total Bilirubin (0.2-1.0) mg/dl Direct Bilirubin (0-0.2) mg/dl AST (13-39) U/L ALT (7-52) U/L Alkaline Phosphatase (34-104) U/L Troponin I High Sens (0-14) pg/ml Total Protein (6.0-8.3) gm/dl Albumin (3.4-5.0) gm/dl Globulin (2.5-4.0) gm/dl Albumin/Globulin Ratio (0.9-2) Procalcitonin (0-0.5) ng/ml Urine Color Urine Appearance (Clear) Urine pH (4.5-7.5) Ur Specific [place] (1.000-1.030) Urine Protein (Negative) Urine Glucose (UA) (Negative) Urine Ketones (Negative) Urine Blood (Negative) Urine Nitrite (Negative) Urine Bilirubin (Negative) Urine Urobilinogen (Negative) Ur Leukocyte Esterase (Negative) Urine WBC (Auto) (0-5) /hpf Urine RBC (Auto) (0-4) /hpf U Hyaline Cast (Auto) (0-5) /lpf U Epithel Cells (Auto) (0-5) /lpf Urine Bacteria (Auto) (Negative) SARS-CoV-2, RNA, NAAT (NEGATIVE) Medications Administered Current Inpatient Medications Acetaminophen (Acetaminophen 325 Mg Tab) 650 mg PO Q4H PRN PRN Reason: Pain or Fever Stop: 01/06/23 20:21 Al Hydrox/Mg Hydrox/Simethicone (Aluminum/Magnesium Susp 30 Ml Udc) 15 ml PO Q4H PRN PRN Reason: Dyspepsia Stop: 01/06/23 20:21 Albuterol (Albuterol Hfa 8 Gm Inhaler) 2 puffs INH Q6H PRN PRN Reason: Shortness Of Breath Or Wheezing Stop: 01/06/23 20:38 Albuterol (Albut/Ipratrop 3mg/0.5mg Neb 3 Ml Vial) 3 ml INH Q4H PRN; Protocol PRN Reason: Shortness Of Breath Or Wheezing Stop: 01/06/23 20:21 Calcitriol (Calcitriol 0.25 Mcg Capsule) 0.5 mcg PO BID CATE Stop: 01/06/23 20:59 Last Admin: 12/08/22 09:49 Dose: 0.5 mcg Calcium Carbonate (Calcium Carbonate 1250mg Tab) 1,250 mg PO TID CATE Stop: 01/06/23 20:59 Last Admin: 12/08/22 09:49 Dose: 1,250 mg Cyanocobalamin (Cyanocobalamin (B-12) 500 Mcg Tablet) 1,000 mcg PO QAM CATE Stop: 01/07/23 08:59 Last Admin: 12/08/22 09:52 Dose: 1,000 mcg Desipramine HCl (Desipramine Hcl 50 Mg Tab) 50 mg PO BID CATE Stop: 01/06/23 20:59 Last Admin: 12/08/22 09:50 Dose: 50 mg Duloxetine HCl (Duloxetine Hcl 20 Mg Cap) 20 mg PO HS CATE Stop: 01/06/23 20:59 Last Admin: 12/07/22 21:31 Dose: 20 mg Enoxaparin Sodium (Enoxaparin Inj 40 Mg/0.4 Ml Syr) 40 mg SQ HS CATE Stop: 01/06/23 20:59 Last Admin: 12/07/22 21:29 Dose: 40 mg Escitalopram Oxalate (Escitalopram Oxalate 20 Mg Tab) 20 mg PO QAM CATE Stop: 01/07/23 08:59 Last Admin: 12/08/22 09:52 Dose: 20 mg Fluticasone Furoate (Fluticasone Furoate 100mcg 14 Puffs/Inhaler) 1 puffs INH DAILY CATE Stop: 01/07/23 08:59 Last Admin: 12/08/22 09:53 Dose: 1 puffs Heparin Sodium (Porcine) (Heparin 100 Unit/Ml 5ml Flush 5 Ml Syr) 5 ml IV PRN PRN PRN Reason: Flush Stop: 01/07/23 06:44 Ertapenem 1,000 mg/ Syringe 10 mls @ 2 mls/min IV Q24H [facility] Stop: 12/10/22 16:29 Lamotrigine (Lamotrigine 25 Mg Tab) 25 mg PO BID CATE Stop: 01/06/23 20:59 Last Admin: 12/08/22 09:50 Dose: 25 mg Levothyroxine Sodium (Levothyroxine Sodium 88 Mcg Tablet) 88 mcg PO QAM [facility] Stop: 01/07/23 08:59 Last Admin: 12/08/22 09:52 Dose: 88 mcg Magnesium Hydroxide (Magnesium Hydroxide Susp 30 Ml Udc) 30 ml PO Q12H PRN PRN Reason: Constipation Stop: 01/06/23 20:21 Miscellaneous (Colesevelam 625mg--Order Awaiting Action) 1 each N/A QS [facility] Stop: 01/07/23 00:00 Last Admin: 12/08/22 12:02 Dose: Not Given Miscellaneous (Creon--Order Awaiting Action) 1 each N/A QS [facility] Stop: 01/07/23 00:00 Last Admin: 12/08/22 12:02 Dose: Not Given Montelukast Sodium (Montelukast Sodium 10 Mg Tablet) 10 mg PO HS [facility] Stop: 01/06/23 20:59 Last Admin: 12/07/22 21:32 Dose: 10 mg Multivitamins/Minerals (Cerovite Adv Formula Tab) 1 tab PO DAILY CATE Stop: 01/07/23 08:59 Last Admin: 12/08/22 09:51 Dose: 1 tab Ondansetron HCl (Ondansetron Inj 2 Mg/Ml 2 Ml Vial) 4 mg IV Q6H PRN PRN Reason: Nausea Stop: 01/06/23 20:21 Oxycodone/Acetaminophen (Oxycodone/Acetaminophen 5mg/325mg Tab) 1 tab PO Q6H PRN PRN Reason: mod-severe pain 5,6,7, 8,9,10 Stop: 12/21/22 20:21 Last Admin: 12/08/22 03:31 Dose: 1 tab Pantoprazole Sodium (Pantoprazole 40 Mg Tab) 40 mg PO BID CATE Stop: 01/06/23 20:59 Last Admin: 12/08/22 09:50 Dose: 40 mg Polyethylene Glycol (Polyethylene (Miralax) 17 Gm Pack) 17 gm PO DAILY PRN PRN Reason: Constipation Stop: 01/06/23 20:21 Potassium Chloride (Potassium Chloride Crtab 20 Meq Tabcr) 20 meq PO TID CATE Stop: 01/06/23 20:59 Last Admin: 12/08/22 09:50 Dose: 20 meq Pregabalin (Pregabalin 100 Mg Cap) 100 mg PO TID CATE Stop: 01/06/23 20:59 Last Admin: 12/08/22 09:48 Dose: 100 mg Risperidone (Risperidone 2 Mg Tablet) 2 mg PO HS CATE Stop: 01/06/23 20:59 Last Admin: 12/07/22 21:33 Dose: 2 mg Ropinirole HCl (Ropinirole Hcl 0.25 Mg Tablet) 0.5 mg PO HS CATE Stop: 01/06/23 20:59 Last Admin: 12/07/22 21:33 Dose: 0.5 mg Rosuvastatin Calcium (Rosuvastatin Calcium 10 Mg Tab) 10 mg PO DAILY CATE Stop: 01/07/23 08:59 Last Admin: 12/08/22 09:51 Dose: 10 mg Tamsulosin HCl (Tamsulosin Hcl 0.4 Mg Cap) 0.4 mg PO DAILY CATE Stop: 01/07/23 08:59 Last Admin: 12/08/22 09:51 Dose: 0.4 mg Umeclidinium/Vilanterol (Umeclidinium/Vilanterol 62.5/25mcg 7 Puffs/Inhaler) 1 puffs INH DAILY CATE Stop: 01/07/23 08:59 Last Admin: 12/08/22 09:54 Dose: 1 puffs Valacyclovir HCl (Valacyclovir Hcl 500 Mg Tablet) 500 mg PO DAILY CATE Stop: 01/07/23 08:59 Last Admin: 12/08/22 09:52 Dose: 500 mg Vitamin D (Cholecalciferol 1,000 Units 25 Mcg Tab) 2,000 units PO DAILY CATE Stop: 01/07/23 08:59 Last Admin: 12/08/22 09:53 Dose: 2,000 units (3) Contusion of left shoulder Encounter type: initial encounter Qualified Code(s): S40.012A - Contusion of left shoulder, initial encounter
--- NOTE | 2022-12-08 17:40 | Orthopedic Consultation ---
Date of Service December 08, 2022 Assessment & Plan (1) Right rotator cuff tear: Patient likely With chronic rotator cuff tear on the right side causing his persistent pain. Treatment at this point on the side is a injection if needed. We will hold off and she can follow-up in clinic for this. (2) Contusion of left shoulder: Left shoulder acute contusion is acute. There certainly may be some underlying rotator cuff pathology. I did let this heal up a bit before intervention. Does not need a sling. She can use it as tolerated within limits of pain. It still bothers 68 weeks from now she is to call the office and consider injection. She is not a good surgical candidate. Best to treat this conservatively. That she does not need a sling. She can use her arm within limits of pain. Any orthopedic questions can direct me [phone] History of Present Illness Reason for Consultation: . Bilateral shoulder pain status post several recent falls Requesting Physician: . Attending Physician: Kenny Easley MD . 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 She has history of right shoulder surgery done by Dr. Reed in 2020 and the new onset of left shoulder pain status post a fall yesterday. She reports improving left shoulder. The right shoulder is been chronically painful for extensive surgery. No new injury. The left side is a new injury. No other real complaints. She is get a pacemaker tomorrow. Scribes mostly lateral sided pain. Allergies Allergy/AdvReac Type Severity Reaction Status Date / Time bethanechol Allergy Intermediate RASH, Verified 12/07/22 16:56 "FEELS FUNNY" Cephalosporins Allergy Intermediate RASH, Verified 12/07/22 15:30 DIARRHEA levofloxacin Allergy Intermediate RASH,TURNED Verified 12/07/22 15:30 RED Sulfa (Sulfonamide Allergy Intermediate Generalized Verified 12/07/22 15:30 Antibiotics) Rash ertapenem Allergy Mild RASH Verified 12/07/22 16:57 clindamycin Allergy Unknown Unknown Verified 12/07/22 15:30 dipyridamole Allergy Unknown UNKNOWN Verified 12/07/22 15:30 droperidol Allergy Unknown Unknown Verified 12/07/22 15:30 promethazine Allergy Unknown UNKNOWN Verified 12/07/22 15:30 tobramycin Allergy Unknown UNKNOWN Verified 12/07/22 15:30 aspirin AdvReac Severe BLEEDING Verified 12/07/22 15:30 doxycycline AdvReac Severe severe Verified 12/07/22 15:30 Diarrhea, nausea metolazone AdvReac Severe ELECTROLYTE Verified 12/07/22 15:30 ISSUES bupropion AdvReac Intermediate NERVOUS Verified 12/07/22 15:30 REACTION cephalexin AdvReac Intermediate GI SYMPTOMS Verified 12/07/22 15:30 morphine AdvReac Intermediate NERVOUS Verified 12/07/22 15:30 REACTION TO IT nitrofurantoin AdvReac Intermediate Vomiting Verified 12/07/22 15:30 [From Macrobid] prochlorperazine AdvReac Intermediate NERVOUS Verified 12/07/22 15:30 REACTION tedizolid AdvReac Intermediate GI SYMPTOMS Verified 12/07/22 15:30 Home Medications Medication Instructions Recorded Confirmed Type colesevelam 625 mg tablet (WelChol) 625 mg PO TID 06/17/18 12/07/22 History montelukast 10 mg tablet 10 mg PO HS 06/17/18 12/07/22 History (Singulair) ipratropium 0.5 mg-albuterol 3 mg 3 ml inhalation Q4H PRN Shortness 05/05/19 12/07/22 History (2.5 mg base)/3 mL nebulization Of Breath Or Wheezing soln yrjvju-hiuqhwng-olzgmwz 4 cap PO TID 05/05/19 12/07/22 History 24,000-76,000-120,000 unit capsule,delayed rel (Creon) omeprazole magnesium 20 mg 20 mg PO BID 05/17/19 12/07/22 History tablet,delayed release (Prilosec OTC) mecobalamin (vitamin B12) 1,000 1,000 mcg PO QAM 01/21/21 12/07/22 History mcg disintegrating tablet,sublingual risperidone 2 mg tablet 2 mg PO HS 02/27/21 12/07/22 History potassium chloride 10 mEq 10 meq PO TID 12/04/21 12/07/22 History capsule,extended release desipramine 50 mg tablet 50 mg PO BID 01/23/22 12/07/22 History levothyroxine 88 mcg tablet 88 mcg PO QAM 05/19/22 12/07/22 History calcitriol 0.5 mcg capsule 0.5 mcg PO BID #60 caps 07/02/22 12/07/22 Rx calcium carbonate 600 mg calcium 1,200 mg PO TID #180 tabs 07/02/22 12/07/22 Rx (1,500 mg) tablet (Calcium) albuterol sulfate 90 mcg/actuation 2 inh inhalation Q6H PRN Shortness 07/31/22 12/07/22 Rx breath activated powder inhaler Of Breath Or Wheezing #1 ea fluticasone fur. 100 mcg-umeclid 1 inh inhalation QAM #60 ea 07/31/22 12/07/22 Rx 62.5 mcg-vilant 25 mcg inhalat.powder (Trelegy Ellipta) pregabalin 100 mg capsule 100 mg PO TID #90 caps 10/01/22 12/07/22 Rx duloxetine 20 mg capsule,delayed 20 mg PO HS #30 caps 10/29/22 12/07/22 Rx release (Cymbalta) lamotrigine 25 mg tablet 25 mg PO BID #60 tabs 11/06/22 12/07/22 Rx lorazepam 0.5 mg tablet 0.5 mg PO BID PRN Anxiety 11/06/22 12/07/22 History cholecalciferol (vitamin D3) 25 50 mcg PO DAILY 11/15/22 12/07/22 History mcg (1,000 unit) capsule (Vitamin D3) escitalopram oxalate 20 mg tablet 20 mg PO QAM 11/15/22 12/07/22 History metolazone 2.5 mg tablet 2.5 mg PO DAILY PRN WT >199 LBS. 11/15/22 12/07/22 History aoxzgozboaxp-xuntpsau-zqgkbo tablet 1 tab PO DAILY 11/15/22 12/07/22 History oxycodone-acetaminophen 5 mg-325 1 tab PO Q6H PRN Pain 11/15/22 12/07/22 History mg tablet (Percocet) ropinirole 0.5 mg tablet 0.5 mg PO HS 11/15/22 12/07/22 History rosuvastatin 10 mg tablet 10 mg PO DAILY 11/15/22 12/07/22 History tamsulosin 0.4 mg capsule (Flomax) 0.4 mg PO DAILY 11/15/22 12/07/22 History torsemide 20 mg tablet 40 mg PO BID 11/15/22 12/07/22 History valacyclovir 500 mg tablet 500 mg PO DAILY 11/15/22 12/07/22 History Past Med/Surg History Medical History (Updated 12/08/22 @ 17:38 by Gilberto Younger MD) Asthma Atherosclerosis of both lower extremities Chronic diastolic (congestive) heart failure Hospitalized March 2022 Follows w/[facility] (Dr. Otoole), EF 55-60% Chronic kidney disease stage 3b Chronic sinusitis Chronic urinary tract infection Chronic venous insufficiency COPD (chronic obstructive pulmonary disease) Depression GERD without esophagitis H/O concussion "a long time ago" History of anemia History of esophageal dilatation Hyperlipidemia per records Hypothyroidism Incisional hernia Abdominal (from multiple surgeries/feeding tube) Kidney stones Lumbar transverse process fracture Pt reports lower back detioriating - can't lie flat/sleep on a chair MRSA (methicillin resistant staph aureus) culture positive History of Left wrist Had 3 nasal swab and all negative (through [facility] per pt) Obesity Osteoporosis Pancreatic insufficiency chronic pancreatitis Peripheral neuropathy Port-A-Cath in place right side due to poor vascular access PUD (peptic ulcer disease) Had feeding tube for 28 years (has been removed for 11 years) Pulmonary hypertension mild per 07/[address] report PVC (premature ventricular contraction) Reactive hypoglycemia Right rotator cuff tear Secondary hyperparathyroidism Sepsis 05/2020 @ [facility], urosepsis 2/2 obstructing renal stone, S/P cysto/stent and ESWL Short bowel syndrome Sleep apnea complex sleep apnea, BIPAP *has not used it, can't get used to wearing a mask SOB (shortness of breath) on exertion Trouble swallowing hx egd with dilation / "narrowing" Urinary leakage Wrist injury Scar tissue surrounding remote wrist ORIF several years ago resulting in intermittent inflammation per pt Surgical History H/O shoulder surgery RT arthroscopy 05/28/2021: LMA#4 atraumatic x 1 + PNB. Anesthesia postop progress note: "Pt denies SOB at this time. Block is functioning well. Vital signs stable and appropriate. Oxygenating well considering block placement and her comorbidities. Plan to discharge home with IS." History of appendectomy History of cardiac cath 08/2019 ([facility]): essentially normal coronary arteries angiographically, + luminal irregularities. no stents History of cholecystectomy History of colonoscopy History of cystoscopy multiple History of esophagogastroduodenoscopy (EGD) History of gastrointestinal surgery multiple History of joint replacement Rt thumb History of knee replacement procedure of right knee History of open reduction and internal fixation (ORIF) procedure left wrist + manipulation (01/2018) and I&D (10/2019) History of partial gastrectomy History of prior ablation treatment Right LE in January 2020 and left LE 04/18/20 History of sinus surgery History of tonsillectomy and adenoidectomy History of total abdominal hysterectomy and bilateral salpingo-oophorectomy S/P right rotator cuff repair S/P ureteral stent placement Status post laser lithotripsy of ureteral calculus most recent litho nov 2021 04/29/2021: LMA#4 atraumatic x 1. [facility] 03/01/2021: LMA#4 atraumatic x 1. [facility] [place] 02/04/2021: LMA#4 atraumatic x 1. [facility]. 07/04/2020: LMA#4 atraumatic x 1. [facility]. No issues per anesthesia postop progress notes. Family History Mother Family history of diabetes mellitus Sister Family history of diabetes mellitus Family history of breast cancer Father Esophageal cancer Other Family history non-contributory No family history of adverse response to anesthesia Social History Smoking Status: Never smoker Second Hand Exposure: Yes ( A CHILD); Hx Alcohol Use: No Hx Substance Use: No Preferred Language: Portuguese Communication Ability: Effective Visual Impairment: No Limitations [employer] Required: No Beliefs That Will Affect Care: None marital status: Single Current Living Situation: Alone Current Living Situation Comment: APARTMENT COMPLEX>FRIENDS ALL AROUND How many Children do You have: 0 Feels Safe at Home: Yes Safety Concerns: Feels Safe At This Time Assistive Devices: Walker Review of Systems All systems reviewed & are unremarkable except as noted in HPI & below. Physical Exam . Physical examination of the left shoulder reveals maybe a little bit of atrophy. She does have some bruising over the lateral deltoid area. She can actively elevate about 110 degrees. Motor strength is 4/5 at best. She got brisk refill. No obvious deformity. Examination the right shoulder reveals there is some mild atrophy. She can elevate to 120. Motor strength is 4 5 please get brisk refill. Results & Data Results & Data Laboratory Results . Diagnostic Findings . X-rays of the left shoulder reviewed. Shows no signs of fracture. Minimal arthritic change. PG Care Time/CCT Total # of Minutes Spent Total Time Spent with Patient: Total time spent is greater than 50% in coordination of care (as documented) at patient's floor/unit and/or counseling patient: Coding Level of Care Code 34561 IN/OBS CONSULT LVL 4,60M Diagnoses Right rotator cuff tear M75.101 Contusion of left shoulder S40.012A Encounter type: initial encounter (2) Contusion of left shoulder Encounter type: initial encounter Qualified Code(s): S40.012A - Contusion of left shoulder, initial encounter
[2022-12-08] MEDS: ADVANCED PROBIOTIC 1250 MG CAPSULE PO SCH (18:13)
[2022-12-08] MEDS: LIDOCAINE 5% 1 PATCH TD SCH (18:13)
[2022-12-08] MEDS: ERTAPENEM SODIUM 1,000 MG in SYRINGE 0 ML IV SCH (18:17)
[2022-12-08] MEDS: rOPINIRole HCL 0.25 MG TABLET PO SCH (22:09)
[2022-12-08] MEDS: risperiDONE 2 MG TABLET PO SCH (22:09)
[2022-12-08] MEDS: DULoxetine HCL 20 MG CAP PO SCH (22:09)
[2022-12-08] MEDS: MONTELUKAST SODIUM 10 MG TABLET PO SCH (22:09)
[2022-12-08] MEDS: ENOXAPARIN INJ 40 MG/0.4 ML SYR SQ SCH (22:10)
--- NOTE | 2022-12-09 05:07 | Electrocardiogram Report ---
Test Reason : Blood Pressure : / mmHG Vent. Rate : 057 BPM Atrial Rate : 057 BPM P-R Int : 242 ms QRS Dur : 134 ms QT Int : 476 ms P-R-T Axes : 056 -26 043 degrees QTc Int : 463 ms Sinus bradycardia with 1st degree A-V block Left ventricular hypertrophy with QRS widening and repolarization abnormality Abnormal ECG When compared with ECG of 15-NOV-2022 21:30, T wave inversion no longer evident in Lateral leads No significant change Confirmed by Srikanth Wagner ([id number]) on 12/09/2022 5:07:01 AM Referred By: STACIE PCP Confirmed By:Srikanth Wagner
--- NOTE | 2022-12-09 05:22 | Electrocardiogram Report ---
Test Reason : Blood Pressure : / mmHG Vent. Rate : 058 BPM Atrial Rate : 058 BPM P-R Int : 250 ms QRS Dur : 120 ms QT Int : 482 ms P-R-T Axes : 052 -28 036 degrees QTc Int : 473 ms Sinus bradycardia with 1st degree A-V block Left ventricular hypertrophy with QRS widening Abnormal ECG When compared with ECG of 07-DEC-2022 14:22, (unconfirmed) No significant change Confirmed by Srikanth Wagner ([id number]) on 12/09/2022 5:22:25 AM Referred By: NO PCP Confirmed By:Srikanth Wagner
--- NOTE | 2022-12-09 05:43 | Electrocardiogram Report ---
Test Reason : Blood Pressure : / mmHG Vent. Rate : 047 BPM Atrial Rate : 357 BPM P-R Int : 000 ms QRS Dur : 110 ms QT Int : 472 ms P-R-T Axes : 000 -23 008 degrees QTc Int : 417 ms Junctional rhythm Moderate voltage criteria for LVH, may be normal variant Abnormal ECG When compared with ECG of 08-DEC-2022 05:46, (unconfirmed) Junctional rhythm has replaced Sinus rhythm Nonspecific T wave abnormality no longer evident in Lateral leads QT has shortened Confirmed by Srikanth Wagner ([id number]) on 12/09/2022 5:42:44 AM Referred By: NO PCP Confirmed By:Srikanth Wagner
[2022-12-09] MEDS ORDERED: VANCOMYCIN HCL 1,250 MG in SODIUM CHLORIDE 0.9% 250 ML IV SCH (06:00)
[2022-12-09] MEDS ORDERED: CLINDAMYCIN/D5W 900 MG/50 ML BAG IV SCH (06:00)
[2022-12-09] MEDS ORDERED: WATER, STERILE FOR INJ 10 ML VIAL ONE (06:53)
[2022-12-09] MEDS ORDERED: LIDOCAINE 1% LOCAL 20 ML VIAL ONE (06:53)
[2022-12-09] MEDS ORDERED: VANCOMYCIN HCL 1000MG/20ML VIAL ONE (06:54)
[2022-12-09] MEDS ORDERED: Nursing to Pharmacy Communication STA (07:30)
--- NOTE | 2022-12-09 08:15 | Pre Anesthesia Assessment ---
Date of Service December 09, 2022 Pre Sedation Assessment Vital Signs Temp Pulse Pulse Resp BP BP Pulse Ox 12/09/22 07:25 45 L 16 112/70 98 12/09/22 07:14 47 L 12/09/22 02:22 36.6 C 42 L 16 115/57 L 93 12/08/22 23:49 48 L 12/08/22 22:31 36.8 C 51 L 15 100/56 L 96 12/08/22 19:46 57 L 12/08/22 19:43 12/08/22 19:43 36.6 C 49 L 16 106/60 95 12/08/22 18:33 36.1 C L 54 L 20 86/53 L 97 12/08/22 14:32 35.7 C L 47 L 20 95/62 L 98 12/08/22 11:13 35.4 C L 60 18 112/66 97 O2 Del Method 12/09/22 07:25 Room Air 12/09/22 07:14 12/09/22 02:22 Room Air 12/08/22 23:49 12/08/22 22:31 Room Air 12/08/22 19:46 12/08/22 19:43 Room Air 12/08/22 19:43 Room Air 12/08/22 18:33 Room Air 12/08/22 14:32 Room Air 12/08/22 11:13 Room Air Cardiovascular RRR, no murmur, no edema Respiratory normal respiratory effort, lungs clear to auscultation Pre-Sedation Airway Assessment Smoking Status: Never smoker Hx Sleep Apnea: Yes Hx Difficult Intubation: No Mallampati Class: II ASA: ASA3 NPO Status Date of Last Intake of Fluids: 12/08/22 Date of Last Intake of Solid Food: 12/08/22 Procedure Planning Contraindications for Sedation: none Current Medications Reviewed: Yes Notes The planned sedation has been discussed with the patient. Informed Consent was obtained. I have identified the patient, determined the appropriateness of sedation and have assessed the patient immediately prior to the procedure. All medicine(s) and interventions are by my order.
[2022-12-09] MEDS ORDERED: MIDAZOLAM HCL 5 MG/ML 1 ML VIAL ONE (08:36)
[2022-12-09] MEDS ORDERED: fentaNYL citrate 100 MCG/2 ML VIAL ONE (08:36)
--- NOTE | 2022-12-09 08:51 | Hospitalist Progress Note ---
Date of Service December 09, 2022 Assessment & Plan (1) Near syncope: (2) Fall: (3) Contusion of left shoulder: (4) JAVI (acute kidney injury): Plan 72-year-old female with chronic diastolic CHF, pulm hypertension, renal disease, COPD, LARRY, hyperlipidemia, chronic pancreatitis, hyperparathyroidism, hypothyroidism, GERD, history of nephrolithiasis, RLS, enclosing spondylitis depression with anxiety who presents to ED secondary to syncope x2 prior to arrival. Fall, syncope likely 2/2 bradycardia/ sinus pause pt with 2 falls on day of admission Reports "funny feeling" in her head, "blacking out" prior to falling Hx of poss. junctional rhythm per her admission in March 2022 pt reports frequent falls in the last year with recent worsening no recent med changes will w/u syncope with echo, carotid doppler, orthostatics (negative in ED; however after IVF bolus) carotid dppler - unremarkable Echo - no change Sinus pause on telemetry, about 3 seconds noted, patient feeling short of breath and having chest discomfort Discussed with cardiology at the bedside, plan for pacemaker placement attempted pacemaker placement however unsuccesful, discussed furher approach w/ cardiology at the bedside Chronic diastolic heart failure Sinus Bradycardia, hx of junctional rhythm No sign of volume overload Continue monitor hold torsemide off negative chronotropic agents [facility] [place] (pt follows Dr. Otoole), plan as above Recent hx of Complicated ESBL UTI continue empiric IV ertapenem await urine and blood culture - negative thus far JAVI on CKD 3 Creatinine increased to 1.5, was 1.1 at discharge hold torsemide gentle IVF Avoid nephrotoxic agents [place] [facility] L Shoulder injury XR L shoulder - Chronic appearing left-sided rib fractures. Mild osteoarthritis of the left shoulder without acute fracture, dislocation or osseous erosion. pt follows [facility] - consult ? RC tear and possible bicep tear ICE, elevate, make NWB for now Peripheral neuropathy Lamictal recently added by neurology Continue pregabalin and duloxetine ? if causing freq falls Hypokalemia Potassium 3.2 on admission replete and monitor increase supplement to 20meq tid COPD LARRY- noncompliant with cpap stable DVT prophylaxis. Lovenox subcu Full code Disposition - telemetry Admission and Anticipated Discharge Date Admission Date: December 08, 2022 Subjective Patient seen in follow-up of fall, syncope Currently laying in bed, in NAD, drowsy Attempted pacemaker placement today however unsuccessful Discussed further approach w/cardiology at the bedside Patient denies fevers chills abdominal pain Review of Systems Review of Systems: All systems reviewed & are unremarkable except as noted in Subjective Physical Exam Physical Exam: Constitutional: elderly obese F laying in bed in NAD Head: Normocephalic, Atraumatic Eyes: PERRL, conjunctivae normal, anicteric sclerae ENMT: external ear and nose normal, oropharynx normal Neck: normal visual inspection Respiratory: +rhonchi (velcro like sounds - seem chronic per pulmonary outpt note). Cardiovascular: RRR, 2/6 pati, b/l +1 edema, no pain to palp no edema Chest: normal inspection of chest RACW port a cath Abdomen: normal bowel sounds, soft, nontender Musculoskeletal:+ L shoulder ecchymosis, + tender to palp. or movement Skin: no rashes, warm and dry normal turgor Neurologic: PERRL, EOMI, no face palsy, speech fluent, moves all extremities Psychiatric: A+Ox3, euthymic affect Results & Data Results & Data ([facility]) Vital Signs (Past 12 Hours) Vital Signs Temp Pulse Pulse Resp BP BP Pulse Ox 12/09/22 07:25 45 L 16 112/70 98 12/09/22 07:14 47 L 12/09/22 02:22 36.6 C 42 L 16 115/57 L 93 12/08/22 23:49 48 L 12/08/22 22:31 36.8 C 51 L 15 100/56 L 96 O2 Del Method 12/09/22 07:25 Room Air 12/09/22 07:14 12/09/22 02:22 Room Air 12/08/22 23:49 12/08/22 22:31 Room Air Medications Administered Current Inpatient Medications Acetaminophen (Acetaminophen 325 Mg Tab) 650 mg PO Q4H PRN PRN Reason: Pain or Fever Stop: 01/06/23 20:21 Al Hydrox/Mg Hydrox/Simethicone (Aluminum/Magnesium Susp 30 Ml Udc) 15 ml PO Q4H PRN PRN Reason: Dyspepsia Stop: 01/06/23 20:21 Albuterol (Albuterol Hfa 8 Gm Inhaler) 2 puffs INH Q6H PRN PRN Reason: Shortness Of Breath Or Wheezing Stop: 01/06/23 20:38 Albuterol (Albut/Ipratrop 3mg/0.5mg Neb 3 Ml Vial) 3 ml INH Q4H PRN; Protocol PRN Reason: Shortness Of Breath Or Wheezing Stop: 01/06/23 20:21 Calcitriol (Calcitriol 0.25 Mcg Capsule) 0.5 mcg PO BID CATE Stop: 01/06/23 20:59 Last Admin: 12/08/22 22:09 Dose: 0.5 mcg Calcium Carbonate (Calcium Carbonate 1250mg Tab) 1,250 mg PO TID CATE Stop: 01/06/23 20:59 Last Admin: 12/08/22 22:08 Dose: 1,250 mg Cyanocobalamin (Cyanocobalamin (B-12) 500 Mcg Tablet) 1,000 mcg PO QAM CATE Stop: 01/07/23 08:59 Last Admin: 12/08/22 09:52 Dose: 1,000 mcg Desipramine HCl (Desipramine Hcl 50 Mg Tab) 50 mg PO BID CATE Stop: 01/06/23 20:59 Last Admin: 12/08/22 22:09 Dose: 50 mg Duloxetine HCl (Duloxetine Hcl 20 Mg Cap) 20 mg PO HS CATE Stop: 01/06/23 20:59 Last Admin: 12/08/22 22:09 Dose: 20 mg Enoxaparin Sodium (Enoxaparin Inj 40 Mg/0.4 Ml Syr) 40 mg SQ HS CATE Stop: 01/06/23 20:59 Last Admin: 12/08/22 22:10 Dose: 40 mg Escitalopram Oxalate (Escitalopram Oxalate 20 Mg Tab) 20 mg PO QAM [facility] Stop: 01/07/23 08:59 Last Admin: 12/08/22 09:52 Dose: 20 mg Fluticasone Furoate (Fluticasone Furoate 100mcg 14 Puffs/Inhaler) 1 puffs INH DAILY CATE Stop: 01/07/23 08:59 Last Admin: 12/08/22 09:53 Dose: 1 puffs Heparin Sodium (Porcine) (Heparin 100 Unit/Ml 5ml Flush 5 Ml Syr) 5 ml IV PRN PRN PRN Reason: Flush Stop: 01/07/23 06:44 Ertapenem 1,000 mg/ Syringe 10 mls @ 2 mls/min IV Q24H CATE Stop: 12/10/22 16:29 Last Admin: 12/08/22 18:17 Dose: 2 mls/min Lactated Ringer's (Lr) 1,000 mls @ 15 mls/hr IV .Q24H [facility] Stop: 12/12/22 00:39 Clindamycin Phosphate (Cleocin/D5w) 900 mg in 50 mls @ 100 mls/hr IV PREOP [facility]ATE Stop: 12/09/22 15:00 Last Admin: 12/09/22 07:42 Dose: Not Given Vancomycin HCl 1,250 mg/ (Sodium Chloride) 275 mls @ 200 mls/hr IV PREOP [facility]ATE Stop: 12/09/22 12:00 Last Admin: 12/09/22 07:42 Dose: 200 mls/hr Lactobacillus Acidophilus (Advanced Probiotic 1250 Mg Capsule) 2 cap PO DAILY [facility] Stop: 01/07/23 15:29 Last Admin: 12/08/22 18:13 Dose: 2 cap Lamotrigine (Lamotrigine 25 Mg Tab) 25 mg PO BID [facility] Stop: 01/06/23 20:59 Last Admin: 12/08/22 22:09 Dose: 25 mg Levothyroxine Sodium (Levothyroxine Sodium 88 Mcg Tablet) 88 mcg PO QAM [facility] Stop: 01/07/23 08:59 Last Admin: 12/08/22 09:52 Dose: 88 mcg Lidocaine (Lidocaine 5% 1 Patch) 1 patch TD QAM [facility] Stop: 01/07/23 15:29 Last Admin: 12/08/22 18:13 Dose: 1 patch Magnesium Hydroxide (Magnesium Hydroxide Susp 30 Ml Udc) 30 ml PO Q12H PRN PRN Reason: Constipation Stop: 01/06/23 20:21 Miscellaneous (Colesevelam 625mg--Order Awaiting Action) 1 each N/A QS [facility] Stop: 01/07/23 00:00 Last Admin: 12/09/22 00:15 Dose: Not Given Miscellaneous (Creon--Order Awaiting Action) 1 each N/A QS [facility] Stop: 01/07/23 00:00 Last Admin: 12/09/22 00:15 Dose: Not Given Miscellaneous (Remove Lidoderm Patch) 1 each N/A DAILY@2100 [facility] Stop: 01/07/23 22:59 Last Admin: 12/09/22 00:15 Dose: 1 each Montelukast Sodium (Montelukast Sodium 10 Mg Tablet) 10 mg PO HS [facility] Stop: 01/06/23 20:59 Last Admin: 12/08/22 22:09 Dose: 10 mg Multivitamins/Minerals (Cerovite Adv Formula Tab) 1 tab PO DAILY [facility] Stop: 01/07/23 08:59 Last Admin: 12/08/22 09:51 Dose: 1 tab Ondansetron HCl (Ondansetron Inj 2 Mg/Ml 2 Ml Vial) 4 mg IV Q6H PRN PRN Reason: Nausea Stop: 01/06/23 20:21 Oxycodone/Acetaminophen (Oxycodone/Acetaminophen 5mg/325mg Tab) 1 tab PO Q6H PRN PRN Reason: mod-severe pain 5,6,7, 8,9,10 Stop: 12/21/22 20:21 Last Admin: 12/08/22 16:03 Dose: 1 tab Pantoprazole Sodium (Pantoprazole 40 Mg Tab) 40 mg PO BID [facility] Stop: 01/06/23 20:59 Last Admin: 12/08/22 22:09 Dose: 40 mg Polyethylene Glycol (Polyethylene (Miralax) 17 Gm Pack) 17 gm PO DAILY PRN PRN Reason: Constipation Stop: 01/06/23 20:21 Potassium Chloride (Potassium Chloride Crtab 20 Meq Tabcr) 20 meq PO TID [facility] Stop: 01/06/23 20:59 Last Admin: 12/08/22 22:09 Dose: 20 meq Pregabalin (Pregabalin 100 Mg Cap) 100 mg PO TID [facility] Stop: 01/06/23 20:59 Last Admin: 12/08/22 22:11 Dose: 100 mg Risperidone (Risperidone 2 Mg Tablet) 2 mg PO HS [facility] Stop: 01/06/23 20:59 Last Admin: 12/08/22 22:09 Dose: 2 mg Ropinirole HCl (Ropinirole Hcl 0.25 Mg Tablet) 0.5 mg PO HS [facility] Stop: 01/06/23 20:59 Last Admin: 12/08/22 22:09 Dose: 0.5 mg Rosuvastatin Calcium (Rosuvastatin Calcium 10 Mg Tab) 10 mg PO DAILY [facility] Stop: 01/07/23 08:59 Last Admin: 12/08/22 09:51 Dose: 10 mg Tamsulosin HCl (Tamsulosin Hcl 0.4 Mg Cap) 0.4 mg PO DAILY [facility] Stop: 01/07/23 08:59 Last Admin: 12/08/22 09:51 Dose: 0.4 mg Umeclidinium/Vilanterol (Umeclidinium/Vilanterol 62.5/25mcg 7 Puffs/Inhaler) 1 puffs INH DAILY [facility] Stop: 01/07/23 08:59 Last Admin: 12/08/22 09:54 Dose: 1 puffs Valacyclovir HCl (Valacyclovir Hcl 500 Mg Tablet) 500 mg PO DAILY [facility] Stop: 01/07/23 08:59 Last Admin: 12/08/22 09:52 Dose: 500 mg Vitamin D (Cholecalciferol 1,000 Units 25 Mcg Tab) 2,000 units PO DAILY [facility] Stop: 01/07/23 08:59 Last Admin: 12/08/22 09:53 Dose: 2,000 units (3) Contusion of left shoulder Encounter type: initial encounter Qualified Code(s): S40.012A - Contusion of left shoulder, initial encounter
[2022-12-09] MEDS: LACTATED RINGER'S 1,000 ML IV SCH (09:01)
--- NOTE | 2022-12-09 09:31 | Electrophysiology Report ---
Date of Service December 09, 2022 Electrophysiology Procedure Electrophysiology Procedure Report Pre-op diagnosis: Sinus node dysfunction Postop diagnosis same Procedure 1: Left subclavian venogram 2: Unable to place pacemaker Surgeon Srikanth Wagner MD Sedation: Versed and fentanyl Complications: None There was no IV access in either arm, the access port was available and was used for the procedure. Left subclavian venipuncture was therefore performed without difficulty, however guidewire could not be advanced through the vessel. Using the vena puncture needle dye was injected into the left subclavian vein and it appeared to be obstructed and collateralized into the left atrium. There is no route to access the atrium from the left with a pacing lead. The right access port is in the location that the pacemaker would be placed on the right, although the catheter from the port appears to go into the right IJ. Attempts were made to place a right sided IV catheter to for a dye injection but no venous access was found, including the use of ultrasound. The procedure was therefore abandoned. Alternative access will be required, consideration of a Micra pacemaker although that is not ideal due to lack of atrial pacing. [facility] [place] Electrophysiology codes Indication for Procedure (1) Sinus node dysfunction: Miscellaneous Procedures Procedure 1: EP Miscellaneous: 13983 Contrast injection for venography Procedure 2: EP Miscellaneous: 77772-45 Vengraphy, extremity PG Moderate Sedation Codes Moderate Sedation Codes Procedure 1: Sedation/Anesthesia: 92865 Mod Sedation by the same physician;Init15 Min Child Age 5 & Up Procedure 2: Sedation/Anesthesia: 45281 Mod Sedation by the same physician; Ea [id number] Minutes
[2022-12-09 10:59] LABS: Hematocrit (blood only) 34.6 % (37.0-47.0); Hemoglobin 11.6 g/dl (12.0-16.0); Mean Corpuscular Hemoglobin 29.3 pg (25.0-34.0); Mean Corpuscular Hgb Conc 33.5 g/dL (32.0-36.0); Mean Corpuscular Volume 87.4 fL (80.0-100.0); Mean Platelet Volume 11.4 fL (9.4-12.4); Platelet Count 198 K/uL (130-400); RDW Coefficient of Variation 14.8 % (11.5-14.5); RDW Standard Deviation 47.5 fL (36.4-46.3); Red Blood Count 3.96 M/uL (4.20-5.40)
[2022-12-09 11:15] LABS: BUN Creatinine Ratio 27.5 (10-20); Calcium 9.3 mg/dl (8.5-10.1); Creatinine Clr Calc Pharmacy 28.3 ml/min; Est GFR (Non-African American) 27.7 ml/min; Magnesium 2.1 mg/dl (1.7-2.4); Phosphorus 5.4 mg/dl (2.5-4.9)
--- NOTE | 2022-12-09 13:10 | Post Anesthesia Assessment ---
Date of Service December 09, 2022 Post Sedation Assessment Vital Signs Temp Pulse Pulse Resp BP BP Pulse Ox 12/09/22 12:04 63 17 111/69 95 12/09/22 11:00 64 18 116/62 94 12/09/22 10:50 64 12/09/22 10:31 12/09/22 09:45 62 18 110/59 L 93 12/09/22 09:30 64 18 112/57 L 94 12/09/22 09:21 67 18 112/70 92 12/09/22 07:25 45 L 16 112/70 98 12/09/22 07:14 47 L 12/09/22 02:22 36.6 C 42 L 16 115/57 L 93 12/08/22 23:49 48 L 12/08/22 22:31 36.8 C 51 L 15 100/56 L 96 12/08/22 19:46 57 L 12/08/22 19:43 12/08/22 19:43 36.6 C 49 L 16 106/60 95 12/08/22 18:33 36.1 C L 54 L 20 86/53 L 97 12/08/22 14:32 35.7 C L 47 L 20 95/62 L 98 O2 Del Method 12/09/22 12:04 Room Air 12/09/22 11:00 Room Air 12/09/22 10:50 12/09/22 10:31 Room Air 12/09/22 09:45 Room Air 12/09/22 09:30 Room Air 12/09/22 09:21 Room Air 12/09/22 07:25 Room Air 12/09/22 07:14 12/09/22 02:22 Room Air 12/08/22 23:49 12/08/22 22:31 Room Air 12/08/22 19:46 12/08/22 19:43 Room Air 12/08/22 19:43 Room Air 12/08/22 18:33 Room Air 12/08/22 14:32 Room Air Recovery Score Activity: Moves 4 extremities Respiration: Deep Breath/Cough Circulation: +/-20% PreAnes Value Consciousness: Arouseable (by name) Oxygen Saturation: > 92% On Room Air Post Anesthesia Score: 9 Discharge Sedation Level of Care: Fast Track Phase II Post Sedation Plan On clinical assessment, the patient appears to have tolerated the sedation without complications. Patient is recovering as anticipated. Patient will continue to be monitored by nursing and may be discharged when sedation discharge criteria are met per below protocol. Upon Completions of procedure up to 15 minutes continue every 5 minute vital signs and the P.A.R. score; then discharge to a Phase I or Fast Track to Phase II per the following guidelines: * Discharge Patient to appropriate Phase II area if PAR is 8 or greater or return to pre- procedure baseline. The post - procedure orders will be as directed. * If PAR score is less than 8 or not return to pre-procedure baseline then patient will follow Phase I monitoring till PAR is reached for Phase II. The Phase I may be done in procedure room or may call to secure a Phase I area. * If naloxone or flumazenil are used for reversal, hold in Phase I for continued monitoring from when last reversal dose was given for a minimum of 60 minutes or longer pending the nurse and/or physician discretion of patient condition before discharge to Phase II. Please call the Sedation Physician to re-evaluate and complete post-note for discharge to Phase II area. Do NOT discharge from procedure sedation or Phase 1 until post- sedation evaluation note is complete by procedure /sedation MD Sedation Discharge Instructions to be given to the patient at discharge to home.
[2022-12-09] MEDS: PREGABALIN 100 MG CAP PO SCH ×3 (13:46→21:32)
[2022-12-09] MEDS: TAMSULOSIN HCL 0.4 MG CAP PO SCH (13:47)
[2022-12-09] MEDS: LIDOCAINE 5% 1 PATCH TD SCH (13:47)
[2022-12-09] MEDS: valACYclovir HCL 500 MG TABLET PO SCH (13:47)
[2022-12-09] MEDS: ADVANCED PROBIOTIC 1250 MG CAPSULE PO SCH (13:47)
[2022-12-09] MEDS: ROSUVASTATIN CALCIUM 10 MG TAB PO SCH (13:47)
[2022-12-09] MEDS: CYANOCOBALAMIN (B-12) 500 MCG TABLET PO SCH (13:48)
[2022-12-09] MEDS: CEROVITE ADV FORMULA TAB PO SCH (13:48)
[2022-12-09] MEDS: DESIPRAMINE HCL 50 MG TAB PO SCH ×2 (13:48→21:32)
[2022-12-09] MEDS: lamoTRIgine 25 MG TAB PO SCH ×2 (13:48→21:32)
[2022-12-09] MEDS: ESCITALOPRAM OXALATE 20 MG TAB PO SCH (13:48)
[2022-12-09] MEDS: POTASSIUM CHLORIDE CRTAB 20 MEQ TABCR PO SCH ×3 (13:49→21:32)
[2022-12-09] MEDS: CALCITRIOL 0.25 MCG CAPSULE PO SCH ×2 (13:49→21:32)
[2022-12-09] MEDS: CHOLECALCIFEROL 1,000 UNITS 25 MCG TAB PO SCH (13:49)
[2022-12-09] MEDS: FLUTICASONE FUROATE 100MCG 14 PUFFS/INHALER INH SCH (13:50)
[2022-12-09] MEDS: UMECLIDINIUM/VILANTEROL 62.5/25MCG 7 PUFFS/INHALER INH SCH (13:50)
[2022-12-09] MEDS: LEVOTHYROXINE SODIUM 88 MCG TABLET PO SCH (14:47)
[2022-12-09] MEDS: CALCIUM CARBONATE 1250MG TAB PO SCH ×3 (14:55→21:32)
[2022-12-09] MEDS: PANTOprazole 40 MG TAB PO SCH ×2 (14:55→21:32)
[2022-12-09] MEDS: ERTAPENEM SODIUM 1,000 MG in SYRINGE 0 ML IV SCH (18:00)
[2022-12-09] MEDS: DULoxetine HCL 20 MG CAP PO SCH (21:32)
[2022-12-09] MEDS: risperiDONE 2 MG TABLET PO SCH (21:32)
[2022-12-09] MEDS: rOPINIRole HCL 0.25 MG TABLET PO SCH (21:32)
[2022-12-09] MEDS: MONTELUKAST SODIUM 10 MG TABLET PO SCH (21:32)
[2022-12-09] MEDS: ENOXAPARIN INJ 40 MG/0.4 ML SYR SQ SCH (21:32)
[2022-12-10] MEDS: LEVOTHYROXINE SODIUM 88 MCG TABLET PO SCH (05:52)
[2022-12-10 06:22] LABS: Hematocrit (blood only) 35.8 % (37.0-47.0); Hemoglobin 11.8 g/dl (12.0-16.0); Mean Corpuscular Hemoglobin 29.4 pg (25.0-34.0); Mean Corpuscular Volume 89.1 fL (80.0-100.0); Mean Platelet Volume 11.2 fL (9.4-12.4); Platelet Count 180 K/uL (130-400); RDW Coefficient of Variation 14.7 % (11.5-14.5); RDW Standard Deviation 47.8 fL (36.4-46.3); Red Blood Count 4.02 M/uL (4.20-5.40); White Blood Count 4.66 K/ul (4.8-10.8)
[2022-12-10 06:50] LABS: Calcium 9.6 mg/dl (8.5-10.1); Creatinine Clr Calc Pharmacy 33.4 ml/min; Est GFR (African American) 39.8 ml/min; Est GFR (Non-African American) 34.4 ml/min; Phosphorus 4.3 mg/dl (2.5-4.9); Potassium 4.1 mmol/L (3.5-5.1)
[2022-12-10] MEDS: UMECLIDINIUM/VILANTEROL 62.5/25MCG 7 PUFFS/INHALER INH SCH (08:08)
[2022-12-10] MEDS: FLUTICASONE FUROATE 100MCG 14 PUFFS/INHALER INH SCH (08:08)
[2022-12-10] MEDS: lamoTRIgine 25 MG TAB PO SCH ×2 (08:09→20:16)
[2022-12-10] MEDS: PANTOprazole 40 MG TAB PO SCH ×2 (08:09→20:16)
[2022-12-10] MEDS: DESIPRAMINE HCL 50 MG TAB PO SCH ×2 (08:09→20:16)
[2022-12-10] MEDS: CALCITRIOL 0.25 MCG CAPSULE PO SCH ×2 (08:10→20:16)
[2022-12-10] MEDS: CHOLECALCIFEROL 1,000 UNITS 25 MCG TAB PO SCH (08:10)
[2022-12-10] MEDS: CALCIUM CARBONATE 1250MG TAB PO SCH ×3 (08:10→20:16)
[2022-12-10] MEDS: valACYclovir HCL 500 MG TABLET PO SCH (08:10)
[2022-12-10] MEDS: TAMSULOSIN HCL 0.4 MG CAP PO SCH (08:11)
[2022-12-10] MEDS: ROSUVASTATIN CALCIUM 10 MG TAB PO SCH (08:11)
[2022-12-10] MEDS: CEROVITE ADV FORMULA TAB PO SCH (08:11)
[2022-12-10] MEDS: ESCITALOPRAM OXALATE 20 MG TAB PO SCH (08:11)
[2022-12-10] MEDS: CYANOCOBALAMIN (B-12) 500 MCG TABLET PO SCH (08:11)
[2022-12-10] MEDS: ADVANCED PROBIOTIC 1250 MG CAPSULE PO SCH (08:12)
[2022-12-10] MEDS: LIDOCAINE 5% 1 PATCH TD SCH (08:12)
[2022-12-10] MEDS: LACTATED RINGER'S 1,000 ML IV SCH (09:36)
[2022-12-10] MEDS: POTASSIUM CHLORIDE CRTAB 20 MEQ TABCR PO SCH ×3 (09:43→20:16)
[2022-12-10] MEDS: PREGABALIN 100 MG CAP PO SCH ×3 (09:45→20:16)
[2022-12-10] MEDS ORDERED: FUROSEMIDE INJ 20 MG/2 ML VIAL IV ONE (11:00)
[2022-12-10] MEDS: oxyCODONE/ACETAMINOPHEN 5mg/325mg TAB PO PRN ×2 (11:28→20:19)
--- NOTE | 2022-12-10 16:24 | Hospitalist Progress Note ---
Date of Service December 10, 2022 Assessment & Plan (1) Near syncope: (2) Fall: (3) Contusion of left shoulder: (4) JAVI (acute kidney injury): Plan Patient is a 72 yr female with H/O chronic diastolic CHF, pulm hypertension, renal disease, COPD, LARRY, hyperlipidemia, chronic pancreatitis, hyperparathyroidism, hypothyroidism, GERD, history of nephrolithiasis, RLS, enclosing spondylitis depression with anxiety who presents to ED secondary to syncope x2 prior to arrival. Fall, syncope Sick sinus syndrome --CT Head:No acute intracranial abnormality. --CT Neck:No acute cervical spine fracture or subluxation. --Carotid Doppler:There is no sonographic evidence of hemodynamically significant stenosis in the right or left carotid arterial system. Antegrade flow is shown in the vertebral arteries. -- Orthostatics negative in ED --ECHO: No significant change from prior study. Was not able to have pacemaker placed due to access issues Appreciate cardiology input Will need pacemaker placement as able Fall precautions PT OT as able Chronic diastolic heart failure Held torsemide Patient follows Dr. Otoole as outpatient Monitor volume status Diuretics as needed Recent H/O Complicated ESBL UTI Completed IV ertapenem course Blood Cx:Negative to date Urine Culture: Negative JAVI on CKD III Baseline Cr ~ 1.4-1.5 held torsemide Received gentle IVF Avoid nephrotoxic agents [place] [facility] [place] Monitor renal function Right rotator cuff tear Left shoulder contusion Not a good surgical candidate as per orthopedics Conservative management Follow-up with orthopedics as needed Peripheral neuropathy Lamictal recently added by neurology Continue pregabalin and duloxetine Hypokalemia Replete electrolytes as needed Monitor COPD LARRY- noncompliant with cpap stable DVT Px: Lovenox SQ Code Status Full code Admission and Anticipated Discharge Date Admission Date: December 08, 2022 Subjective Patient is seen and examined at bedside States having right wrist, back pain Also reports dyspnea and intermittent dizziness No other complaints Review of Systems Review of Systems: All systems reviewed & are unremarkable except as noted in Subjective Physical Exam Physical Exam: Physical Exam: Vitals signs as noted above General Appearance:Moderately built and nourished, no apparent distress Head: normocephalic, Atraumatic Eyes: normal inspection, EOMI Neck: supple, Trachea midline Respiratory/Chest: Normal breath sounds, +Basal Crackles, R port, No accessory muscle use Cardiovascular: S1, S2, +murmur Abdomen/GI:Soft, Non tender, + abdominal hernia, bowel sounds present Extremities/Musculoskeletal:normal inspection, no edema, left shoulder bruising Neurologic/Psych:AAOX3, grossly no focal neurological deficits Skin: normal color, warm Results & Data Results & Data ([facility]) Vital Signs (Past 12 Hours) Vital Signs Temp Pulse Pulse Resp BP Pulse Ox O2 Del Method 12/10/22 15:06 36.4 C L 64 18 115/70 93 Room Air 12/10/22 09:58 65 12/10/22 07:28 36.4 C L 65 19 128/76 96 Room Air Laboratory Results Short CBC 12/10/22 Range/Units 05:30 WBC 4.66 L (4.8-10.8) K/ul Hgb 11.8 L (12.0-16.0) g/dl Hct 35.8 L (37.0-47.0) % Plt Count 180 (130-400) K/uL BMP 12/10/22 05:30 Sodium 144 Potassium 4.1 Chloride 106 Carbon Dioxide 33 H BUN 41 H Creatinine 1.52 H D Glucose 112 H Calcium 9.6 (3) Contusion of left shoulder Encounter type: initial encounter Qualified Code(s): S40.012A - Contusion of left shoulder, initial encounter
[2022-12-10] MEDS: ENOXAPARIN INJ 40 MG/0.4 ML SYR SQ SCH (20:16)
[2022-12-10] MEDS: DULoxetine HCL 20 MG CAP PO SCH (20:16)
[2022-12-10] MEDS: risperiDONE 2 MG TABLET PO SCH (20:16)
[2022-12-10] MEDS: rOPINIRole HCL 0.25 MG TABLET PO SCH (20:16)
[2022-12-10] MEDS: MONTELUKAST SODIUM 10 MG TABLET PO SCH (20:16)
[2022-12-11] MEDS: LEVOTHYROXINE SODIUM 88 MCG TABLET PO SCH (05:52)
[2022-12-11 07:07] LABS: Calcium 9.2 mg/dl (8.5-10.1); Creatinine Clr Calc Pharmacy 34.9 ml/min; Est GFR (African American) 42.2 ml/min; Est GFR (Non-African American) 36.4 ml/min; Magnesium 1.9 mg/dl (1.7-2.4); Potassium 3.9 mmol/L (3.5-5.1)
[2022-12-11] MEDS: ROSUVASTATIN CALCIUM 10 MG TAB PO SCH (08:46)
[2022-12-11] MEDS: TAMSULOSIN HCL 0.4 MG CAP PO SCH (08:46)
[2022-12-11] MEDS: CYANOCOBALAMIN (B-12) 500 MCG TABLET PO SCH (08:46)
[2022-12-11] MEDS: CEROVITE ADV FORMULA TAB PO SCH (08:46)
[2022-12-11] MEDS: ESCITALOPRAM OXALATE 20 MG TAB PO SCH (08:46)
[2022-12-11] MEDS: POTASSIUM CHLORIDE CRTAB 20 MEQ TABCR PO SCH ×2 (08:46→20:29)
[2022-12-11] MEDS: PANTOprazole 40 MG TAB PO SCH ×2 (08:46→20:30)
[2022-12-11] MEDS: valACYclovir HCL 500 MG TABLET PO SCH (08:46)
[2022-12-11] MEDS: CHOLECALCIFEROL 1,000 UNITS 25 MCG TAB PO SCH (08:46)
[2022-12-11] MEDS: ADVANCED PROBIOTIC 1250 MG CAPSULE PO SCH (08:46)
[2022-12-11] MEDS: DESIPRAMINE HCL 50 MG TAB PO SCH ×2 (08:47→20:27)
[2022-12-11] MEDS: FLUTICASONE FUROATE 100MCG 14 PUFFS/INHALER INH SCH (08:47)
[2022-12-11] MEDS: CALCITRIOL 0.25 MCG CAPSULE PO SCH ×2 (08:47→20:26)
[2022-12-11] MEDS: UMECLIDINIUM/VILANTEROL 62.5/25MCG 7 PUFFS/INHALER INH SCH (08:47)
[2022-12-11] MEDS: lamoTRIgine 25 MG TAB PO SCH ×2 (08:47→20:30)
[2022-12-11] MEDS: CALCIUM CARBONATE 1250MG TAB PO SCH ×3 (08:47→20:26)
[2022-12-11] MEDS: LIDOCAINE 5% 1 PATCH TD SCH (08:48)
[2022-12-11] MEDS: PREGABALIN 100 MG CAP PO SCH ×3 (08:49→20:37)
[2022-12-11] MEDS: LACTATED RINGER'S 1,000 ML IV SCH (08:53)
[2022-12-11] MEDS: oxyCODONE/ACETAMINOPHEN 5mg/325mg TAB PO PRN ×3 (08:55→20:37)
[2022-12-11] MEDS: predniSONE 5 MG TAB PO SCH (13:08)
[2022-12-11] MEDS: TORSEMIDE 20 MG TAB PO SCH ×2 (13:08→20:33)
--- NOTE | 2022-12-11 15:15 | Hospitalist Progress Note ---
Date of Service December 11, 2022 Assessment & Plan (1) Near syncope: (2) Fall: (3) Contusion of left shoulder: (4) JAVI (acute kidney injury): Plan Patient is a 72 yr female with H/O chronic diastolic CHF, pulm hypertension, renal disease, COPD, LARRY, hyperlipidemia, chronic pancreatitis, hyperparathyroidism, hypothyroidism, GERD, history of nephrolithiasis, RLS, enclosing spondylitis depression with anxiety who presents to ED secondary to syncope x2 prior to arrival. Fall, syncope Sick sinus syndrome --CT Head:No acute intracranial abnormality. --CT Neck:No acute cervical spine fracture or subluxation. --Carotid Doppler:There is no sonographic evidence of hemodynamically significant stenosis in the right or left carotid arterial system. Antegrade flow is shown in the vertebral arteries. -- Orthostatics negative in ED --ECHO: No significant change from prior study. Was not able to have pacemaker placed due to access issues Appreciate cardiology input Will need pacemaker placement eventually Fall precautions PT OT as able Needs follow up with EP for pacemaker placement Chronic diastolic heart failure Held torsemide Patient follows Dr. Otoole as outpatient Monitor volume status Torsemide resumed Monitor renal function Right Wrist Pain H/O Fall Will obtain Wrist X ray Started on low dose prednisone Recent H/O Complicated ESBL UTI Completed IV ertapenem course Blood Cx:Negative to date Urine Culture: Negative JAVI on CKD III Baseline Cr ~ 1.4-1.5 held torsemide Received gentle IVF Avoid nephrotoxic agents [place] [facility] [place] [facility] Monitor renal function Right rotator cuff tear Left shoulder contusion Not a good surgical candidate as per orthopedics Conservative management Follow-up with orthopedics as needed Peripheral neuropathy Lamictal recently added by neurology Continue pregabalin and duloxetine Hypokalemia Replete electrolytes as needed Monitor COPD LARRY- noncompliant with cpap stable DVT Px: Lovenox SQ Code Status Full code Admission and Anticipated Discharge Date Admission Date: December 08, 2022 Subjective Patient is seen and examined at bedside Reports persistent right wrist pain secondary to fall No dizziness today Denies any chest pain, dyspnea, nausea, vomiting, abd pain No other complaints Review of Systems Review of Systems: All systems reviewed & are unremarkable except as noted in Subjective Physical Exam Physical Exam: Physical Exam: Vitals signs as noted above General Appearance:Moderately built and nourished, no apparent distress Head: normocephalic, Atraumatic Eyes: normal inspection, EOMI Neck: supple, Trachea midline Respiratory/Chest: Normal breath sounds, +Basal Crackles, R port, No accessory muscle use Cardiovascular: S1, S2, +murmur Abdomen/GI:Soft, Non tender, + abdominal hernia, bowel sounds present Extremities/Musculoskeletal:normal inspection, no edema, left shoulder bruising Neurologic/Psych:AAOX3, grossly no focal neurological deficits Skin: normal color, warm Results & Data Results & Data ([facility]) Vital Signs (Past 12 Hours) Vital Signs Temp Pulse Pulse Resp BP BP Pulse Ox 12/11/22 11:13 36.4 C L 63 19 103/64 95 12/11/22 07:00 66 12/11/22 07:36 36.4 C L 68 18 108/69 93 O2 Del Method 12/11/22 11:13 Room Air 12/11/22 07:00 12/11/22 07:36 Room Air Laboratory Results BMP 12/11/22 06:05 Sodium 142 Potassium 3.9 Chloride 104 Carbon Dioxide 32 BUN 42 H Creatinine 1.45 H Glucose 142 H Calcium 9.2 (3) Contusion of left shoulder Encounter type: initial encounter Qualified Code(s): S40.012A - Contusion of left shoulder, initial encounter
--- NOTE | 2022-12-11 15:52 | XRay Report ---
XR wrist RT min 3V routine HISTORY: 72 years-old Female Wrist Pain H/O Fall COMPARISON: None TECHNIQUE: 4 views of the right wrist FINDINGS: Demineralized appearance the bones. Mostly mild multifocal osteoarthritis. Moderate degeneration of t he triscaphe joint. Prior resection of the trapezium. Mild dorsal soft tissue swelling. IMPRESSION: No acute fracture or dislocation. ACT 112: Negative or not required by law. The above report was generated using voice recognition software. It may contain grammatical, syntax o r spelling errors. Electronically signed by: Soham Kirby M.D. 12/11/2022 3:50 PM
[2022-12-11] MEDS: DULoxetine HCL 20 MG CAP PO SCH (20:28)
[2022-12-11] MEDS: ENOXAPARIN INJ 40 MG/0.4 ML SYR SQ SCH (20:28)
[2022-12-11] MEDS: MONTELUKAST SODIUM 10 MG TABLET PO SCH (20:30)
[2022-12-11] MEDS: risperiDONE 2 MG TABLET PO SCH (20:31)
[2022-12-11] MEDS: rOPINIRole HCL 0.25 MG TABLET PO SCH (20:32)
[2022-12-12] MEDS: oxyCODONE/ACETAMINOPHEN 5mg/325mg TAB PO PRN ×3 (04:21→22:45)
[2022-12-12 06:16] LABS: Hemoglobin 11.7 g/dl (12.0-16.0); Mean Corpuscular Hemoglobin 29.1 pg (25.0-34.0); Mean Corpuscular Hgb Conc 33.4 g/dL (32.0-36.0); Mean Corpuscular Volume 87.1 fL (80.0-100.0); Platelet Count 180 K/uL (130-400); RDW Coefficient of Variation 14.2 % (11.5-14.5); RDW Standard Deviation 45.3 fL (36.4-46.3); Red Blood Count 4.02 M/uL (4.20-5.40); White Blood Count 7.67 K/ul (4.8-10.8)
[2022-12-12] MEDS: LEVOTHYROXINE SODIUM 88 MCG TABLET PO SCH (06:32)
[2022-12-12 06:36] LABS: BUN Creatinine Ratio 29.3 (10-20); Calcium 9.5 mg/dl (8.5-10.1); Creatinine Clr Calc Pharmacy 30.3 ml/min; Est GFR (African American) 35.6 ml/min; Est GFR (Non-African American) 30.7 ml/min; Magnesium 1.8 mg/dl (1.7-2.4); Potassium 3.6 mmol/L (3.5-5.1)
--- NOTE | 2022-12-12 07:58 | XRay Report ---
XR chest 1V portable HISTORY: 72 years-old Female chf acute shortness of breath COMPARISON: Chest radiograph 12/07/2022 TECHNIQUE: AP view of the chest FINDINGS: Cardiomediastinal and hilar silhouettes are within normal limits. Right IJ [id number] catheter is unchanged. Patient is mildly rotated. Unchanged right hemidiaphragmatic elevation. No pneumothorax, p leural effusion, airspace consolidation or overt pulmonary edema. Degenerative changes of the shoulde rs and spine. Surgical clips of the upper abdomen. Chronic interstitial coarsening. IMPRESSION: Cardiomegaly without acute process. ACT 112: Negative or not required by law. The above report was generated using voice recognition software. It may contain grammatical, syntax o r spelling errors. Electronically signed by: Soham Kirby M.D. 12/12/2022 7:57 AM
[2022-12-12] MEDS ORDERED: POTASSIUM CHLORIDE 10 MEQ TABCR PO SCH (09:00)
[2022-12-12] MEDS: valACYclovir HCL 500 MG TABLET PO SCH (09:15)
[2022-12-12] MEDS: TAMSULOSIN HCL 0.4 MG CAP PO SCH (09:15)
[2022-12-12] MEDS: CALCITRIOL 0.25 MCG CAPSULE PO SCH ×2 (09:16→20:28)
[2022-12-12] MEDS: ADVANCED PROBIOTIC 1250 MG CAPSULE PO SCH (09:16)
[2022-12-12] MEDS: ROSUVASTATIN CALCIUM 10 MG TAB PO SCH (09:16)
[2022-12-12] MEDS: CYANOCOBALAMIN (B-12) 500 MCG TABLET PO SCH (09:16)
[2022-12-12] MEDS: ESCITALOPRAM OXALATE 20 MG TAB PO SCH (09:16)
[2022-12-12] MEDS: CHOLECALCIFEROL 1,000 UNITS 25 MCG TAB PO SCH (09:16)
[2022-12-12] MEDS: CEROVITE ADV FORMULA TAB PO SCH (09:16)
[2022-12-12] MEDS: CALCIUM CARBONATE 1250MG TAB PO SCH ×3 (09:17→20:28)
[2022-12-12] MEDS: DESIPRAMINE HCL 50 MG TAB PO SCH ×2 (09:17→20:28)
[2022-12-12] MEDS: LIDOCAINE 5% 1 PATCH TD SCH (09:18)
[2022-12-12] MEDS: FLUTICASONE FUROATE 100MCG 14 PUFFS/INHALER INH SCH (09:18)
[2022-12-12] MEDS: lamoTRIgine 25 MG TAB PO SCH ×2 (09:18→20:28)
[2022-12-12] MEDS: POTASSIUM CHLORIDE CRTAB 20 MEQ TABCR PO SCH ×2 (09:19→20:28)
[2022-12-12] MEDS: PANTOprazole 40 MG TAB PO SCH ×2 (09:19→20:28)
[2022-12-12] MEDS: TORSEMIDE 20 MG TAB PO SCH (09:20)
[2022-12-12] MEDS: UMECLIDINIUM/VILANTEROL 62.5/25MCG 7 PUFFS/INHALER INH SCH (09:20)
[2022-12-12] MEDS: PREGABALIN 100 MG CAP PO SCH ×3 (09:28→20:28)
[2022-12-12] MEDS: predniSONE 5 MG TAB PO SCH (10:04)
[2022-12-12] MEDS: AMOXICILLIN/CLAVULANATE 250 MG TAB PO SCH ×2 (10:42→16:56)
--- NOTE | 2022-12-12 12:46 | Cardiology Progress Note ---
Date of Service December 12, 2022 Assessment & Plan (1) Sinus node dysfunction: (2) Junctional rhythm: (3) Exertional shortness of breath: Plan 1. Near syncope (with possible syncope): This is most likely due to development of a junctional rhythm resulting in a junctional bradycardia. This was identified on telemetry here and did correlate with her symptoms of weakness, although she was in bed so she did not have near syncope. No other cause for syncope is evident. 2. History of junctional bradycardia: She did have a history of junctional bradycardia identified several years ago, but it did not seem to cause the significant symptoms that she has now. I suspect that she has ongoing and progressive sinus node dysfunction resulting in increased frequency of events although they are still sporadic. During the episode of junctional bradycardia in the 40s which occurred here she had retrograde atrial activation which not only worsens hemodynamics but also increases the time before sinus rhythm returns due to overdrive of the sinus node. I believe she should have a pacemaker, we could not place one from above due to an occluded left subclavian vein (she has evidence of venous access on that side but she does not remember why and probably there was injury to the vessel) and the right side is occupied by the access port. Our options are therefore a leadless pacemaker ([employer] Micra) which is placed from the groin, or a groin pacemaker with long leads. This latter approach has not been used much and with the current availability of Micra is probably not warranted. The downside to the Micra is that is a ventricular only device, not dual-chamber, but I suspect with maintenance of heart rate even with ventricular pacing she will not have the symptoms. 3. Dyspnea on exertion: She has a very blunted heart rate response, which would be consistent with sinus node dysfunction, including on pharmacologic stress testing where her heart rate remained well below target as far back as 2019. I suspect her difficulty with exertion is due to poor heart rate response which is another sign of sinus node dysfunction and which could be corrected with a rate responsive pacemaker. At this time I tentatively have her scheduled for a Micra leadless pacemaker implantation on Thursday, December 16. We could arrange this as an outpatient if she would go home before that. I discussed this with her sister Adele Martinez by phone and she agees with this approach. Admission and Anticipated Discharge Date Admission Date: December 08, 2022 Subjective She is feeling well today. She has had no recurrence of her bradycardia or her symptoms. Physical Exam Physical Exam: Constitutional: Alert, cooperative and in no distress. HEENT: Unremarkable Neck: No jugular venous distention, carotid pulses are normal and equal bilaterally without bruits. Pulmonary: Clear to auscultation bilaterally. Cardiac: Regular rhythm with no murmur, gallop or rub. Abdomen: Soft, nontender with normal bowel sounds. Extremities: No edema. Distal pulses intact. Neurologic: No focal findings. Gait is steady. Skin: No rash, ecchymoses or petechiae. Results & Data ([facility]) Vital Signs (Past 12 Hours) Vital Signs Temp Pulse Resp BP BP Pulse Ox O2 Del Method 12/12/22 10:37 36.4 C L 71 19 94/66 L 95 Room Air 12/12/22 08:08 36.4 C L 74 18 109/71 93 Room Air 12/12/22 02:35 36.4 C L 67 18 115/74 90 Room Air Laboratory Results CBC 12/12/22 Range/Units 05:23 WBC 7.67 (4.8-10.8) K/ul RBC 4.02 L (4.20-5.40) M/uL Hgb 11.7 L (12.0-16.0) g/dl Hct 35.0 L (37.0-47.0) % Plt Count 180 (130-400) K/uL Comprehensive Metabolic Panel 12/12/22 Range/Units 05:23 Sodium 143 (136-145) mmol/L Potassium 3.6 (3.5-5.1) mmol/L Chloride 102 (98-107) mmol/L Carbon Dioxide 35 H (21-32) mmol/L BUN 49 H (6-23) mg/dl Creatinine 1.67 H (0.6-1.2) mg/dl Glucose 92 (70-99(Fasting)) mg/dl Calcium 9.5 (8.5-10.1) mg/dl Intake and Output 12/11/22 12/12/22 12/12/22 22:59 06:59 14:59 Intake Total 150 / 500 100 / 500 Output Total 1250 / 2950 1050 / 2950 Balance -1100 / -2450 -950 / -2450 Intake: Oral 150 / 500 100 / 500 Output: Urine Amount (Catheter) 1250 / 2950 1050 / 2950 Cam/Indwelling 1250 / 2950 1050 / 2950 Other: Weight 81.2 kg Diagnostic Findings Telemetry: Sinus rhythm rate 60 to 70 bpm past 24 hours, no significant arrhythmia. PG Care Time/CCT Total # of Minutes Spent Total Time Spent with Patient: Total time spent is greater than 50% in coordination of care (as documented) at patient's floor/unit and/or counseling patient: Coding Level of Care Code 20855 SUB INP/OBS CARE 2/35MIN Diagnoses Sinus node dysfunction I49.5 Junctional rhythm I49.8 Exertional shortness of breath R06.02
--- NOTE | 2022-12-12 14:01 | Nephrology Consultation ---
Date of Consultation December 12, 2022 Assessment & Plan (1) JAVI (acute kidney injury): (2) Near syncope: (3) Ureterolithiasis: Plan 72 y o F with History of nephrolithiasis, repeated episodes of JAVI, complicated UTI, admitted after 2 episodes of syncope at home. has functional b radycardia and sinus node dysfunction and plan to have pacemaker placement next Thursday. the Creatinine peaked to 1.9 then improved to 1.4 but again went up to 1.7 this morning. Blood pressure stable but relatively low, more than 5 L net negative since admission. -- Recommend holding torsemide for now, encourage p.o. intake. -- Continue to monitor renal function and electrolyte, avoid hypotension -- okay to be discharged over the weekend if renal function improved, would hold diuretics and discharge with close outpatient lab monitoring. Thank you for allowing me to participate in your patient's care. It was a pleasure to see Liz. History of Present Illness Reason for Consultation: JAVI Attending Physician: Aubrey Chicas MD History of Present Illness Ms. Liz Braswell is a 72-year-old female with PMH of repeated episodes of JAVI, CHF, pulmonary hypertension, COPD, LARRY Admitted to the hospital with 2 episodes of near-syncope at home and found to have JAVI. Nephrology consult was requested for further management of JAVI. EMR records are reviewed in detail during patient's visit. Liz was brought to ER after she had 2 episodes of near-syncope at home. In ER she was found to be hypotensive with systolic blood pressure in 90s and IV fluid bolus was given with slight improvement in blood pressure. Lab showed hemoglobin 11.0, WBC was normal. She was afebrile. Creatinine was 1.4, potassium was 3.2 and BUN of 50. urinalysis showed leukocyte esterase is but no bacteria but because of recent history of complicated UTI with ESBL requiring hospitalization in November, she was empirically started on IV ertapenem.She was found to have functional bradycardia and sinus node dysfunction, evaluated by Cardiology with plan for pacemaker placement next week. She was recently hospitalized 11/16 to 11/20/2022 secondary to complicated UTI. Urine culture grew ESBL and she was treated with IV meropenem for 7-day course. Hospital course was complicated with JAVI with peak creatinine of 1.8 and creatinine of 1.1 on the day of discharge. At baseline she has decent renal function, baseline creatinine around 1-1.1.She did have repeated episodes of JAVI over last 2 years when creatinine would peaked to around 1.7 to 1.8 but improved rapidly and back to baseline of around 1.0- 1.1. No proteinuria hematuria. Never smoker but had exposure to second hand smoke. 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 Mom and brother has h/o CKD, no ESRD, sister has h/o nephrolithiasis. Renal imaging was otherwise unremarkable except bilateral nephrolithiasis. Previously she was seen in 2020 for metabolic evaluation for h/o recurrent nephrolithiasis with calcium oxalate stone, first stone episode was in April 2020, had right-sided laser lithotripsy and basket retrieval of multiple stones on 04/29/2021. h/o pyelonephritis and septic shock with right-sided obstructive uropathy. .She was found to have hypocitraturia and low urine volume and encouraged to increase fluid intake and started on potassium citrate however she could not tolerate that very well. Since then she did not come for follow-up. On admission creatinine was 1.4 but peaked to 1.9 but again started to improve and staying around 1.5-1.6. She has been voiding normally, denies dysuria or gross hematuria. Overall she otherwise feels well. Clinically she seems volume depleted, she is total net negative almost 5 L since admission. Allergies Allergy/AdvReac Type Severity Reaction Status Date / Time bethanechol Allergy Intermediate RASH, Verified 12/07/22 16:56 "FEELS FUNNY" Cephalosporins Allergy Intermediate RASH, Verified 12/07/22 15:30 DIARRHEA levofloxacin Allergy Intermediate RASH,TURNED Verified 12/07/22 15:30 RED Sulfa (Sulfonamide Allergy Intermediate Generalized Verified 12/07/22 15:30 Antibiotics) Rash ertapenem Allergy Mild RASH Verified 12/07/22 16:57 clindamycin Allergy Unknown Unknown Verified 12/07/22 15:30 dipyridamole Allergy Unknown UNKNOWN Verified 12/07/22 15:30 droperidol Allergy Unknown Unknown Verified 12/07/22 15:30 promethazine Allergy Unknown UNKNOWN Verified 12/07/22 15:30 tobramycin Allergy Unknown UNKNOWN Verified 12/07/22 15:30 aspirin AdvReac Severe BLEEDING Verified 12/07/22 15:30 doxycycline AdvReac Severe severe Verified 12/07/22 15:30 Diarrhea, nausea metolazone AdvReac Severe ELECTROLYTE Verified 12/07/22 15:30 ISSUES bupropion AdvReac Intermediate NERVOUS Verified 12/07/22 15:30 REACTION cephalexin AdvReac Intermediate GI SYMPTOMS Verified 12/07/22 15:30 morphine AdvReac Intermediate NERVOUS Verified 12/07/22 15:30 REACTION TO IT nitrofurantoin AdvReac Intermediate Vomiting Verified 12/07/22 15:30 [From Macrobid] prochlorperazine AdvReac Intermediate NERVOUS Verified 12/07/22 15:30 REACTION tedizolid AdvReac Intermediate GI SYMPTOMS Verified 12/07/22 15:30 Home Medications Medication Instructions Recorded Confirmed Type colesevelam 625 mg tablet (WelChol) 625 mg PO TID 06/17/18 12/07/22 History montelukast 10 mg tablet 10 mg PO HS 06/17/18 12/07/22 History (Singulair) ipratropium 0.5 mg-albuterol 3 mg 3 ml inhalation Q4H PRN Shortness 05/05/19 12/07/22 History (2.5 mg base)/3 mL nebulization Of Breath Or Wheezing soln yuwudg-iqeerkne-cdfajss 4 cap PO TID 05/05/19 12/07/22 History 24,000-76,000-120,000 unit capsule,delayed rel (Creon) omeprazole magnesium 20 mg 20 mg PO BID 05/17/19 12/07/22 History tablet,delayed release (Prilosec OTC) mecobalamin (vitamin B12) 1,000 1,000 mcg PO QAM 01/21/21 12/07/22 History mcg disintegrating tablet,sublingual risperidone 2 mg tablet 2 mg PO HS 02/27/21 12/07/22 History potassium chloride 10 mEq 10 meq PO TID 12/04/21 12/07/22 History capsule,extended release desipramine 50 mg tablet 50 mg PO BID 01/23/22 12/07/22 History levothyroxine 88 mcg tablet 88 mcg PO QAM 05/19/22 12/07/22 History calcitriol 0.5 mcg capsule 0.5 mcg PO BID #60 caps 07/02/22 12/07/22 Rx calcium carbonate 600 mg calcium 1,200 mg PO TID #180 tabs 07/02/22 12/07/22 Rx (1,500 mg) tablet (Calcium) albuterol sulfate 90 mcg/actuation 2 inh inhalation Q6H PRN Shortness 07/31/22 12/07/22 Rx breath activated powder inhaler Of Breath Or Wheezing #1 ea fluticasone fur. 100 mcg-umeclid 1 inh inhalation QAM #60 ea 07/31/22 12/07/22 Rx 62.5 mcg-vilant 25 mcg inhalat.powder (Trelegy Ellipta) pregabalin 100 mg capsule 100 mg PO TID #90 caps 10/01/22 12/07/22 Rx duloxetine 20 mg capsule,delayed 20 mg PO HS #30 caps 10/29/22 12/07/22 Rx release (Cymbalta) lamotrigine 25 mg tablet 25 mg PO BID #60 tabs 11/06/22 12/07/22 Rx lorazepam 0.5 mg tablet 0.5 mg PO BID PRN Anxiety 11/06/22 12/07/22 History cholecalciferol (vitamin D3) 25 50 mcg PO DAILY 11/15/22 12/07/22 History mcg (1,000 unit) capsule (Vitamin D3) escitalopram oxalate 20 mg tablet 20 mg PO QAM 11/15/22 12/07/22 History metolazone 2.5 mg tablet 2.5 mg PO DAILY PRN WT >199 LBS. 11/15/22 12/07/22 History ueggqjuhcujy-rbtwcnkc-uxouum tablet 1 tab PO DAILY 11/15/22 12/07/22 History oxycodone-acetaminophen 5 mg-325 1 tab PO Q6H PRN Pain 11/15/22 12/07/22 History mg tablet (Percocet) ropinirole 0.5 mg tablet 0.5 mg PO HS 11/15/22 12/07/22 History rosuvastatin 10 mg tablet 10 mg PO DAILY 11/15/22 12/07/22 History tamsulosin 0.4 mg capsule (Flomax) 0.4 mg PO DAILY 11/15/22 12/07/22 History torsemide 20 mg tablet 40 mg PO BID 11/15/22 12/07/22 History valacyclovir 500 mg tablet 500 mg PO DAILY 11/15/22 12/07/22 History Patient History Medical History (Updated 12/12/22 @ 12:38 by Srikanth Wagner MD) Asthma Atherosclerosis of both lower extremities Chronic diastolic (congestive) heart failure Hospitalized March 2022 Follows w/[facility] (Dr. Otoole), EF 55-60% Chronic kidney disease stage 3b Chronic sinusitis Chronic urinary tract infection Chronic venous insufficiency COPD (chronic obstructive pulmonary disease) Depression GERD without esophagitis H/O concussion "a long time ago" History of anemia History of esophageal dilatation Hyperlipidemia per records Hypothyroidism Incisional hernia Abdominal (from multiple surgeries/feeding tube) Kidney stones Lumbar transverse process fracture Pt reports lower back detioriating - can't lie flat/sleep on a chair MRSA (methicillin resistant staph aureus) culture positive History of Left wrist Had 3 nasal swab and all negative (through [facility] pt) Obesity Osteoporosis Pancreatic insufficiency chronic pancreatitis Peripheral neuropathy Port-A-Cath in place right side due to poor vascular access PUD (peptic ulcer disease) Had feeding tube for 28 years (has been removed for 11 years) Pulmonary hypertension mild per 07/[address] report PVC (premature ventricular contraction) Reactive hypoglycemia Right rotator cuff tear Secondary hyperparathyroidism Sepsis 05/2020 @ [facility], urosepsis 2/2 obstructing renal stone, S/P cysto/stent and ESWL Short bowel syndrome Sleep apnea complex sleep apnea, BIPAP *has not used it, can't get used to wearing a mask SOB (shortness of breath) on exertion Trouble swallowing hx egd with dilation / "narrowing" Urinary leakage Wrist injury Scar tissue surrounding remote wrist ORIF several years ago resulting in intermittent inflammation per pt Surgical History H/O shoulder surgery RT arthroscopy 05/28/2021: LMA#4 atraumatic x 1 + PNB. Anesthesia postop progress note: "Pt denies SOB at this time. Block is functioning well. Vital signs stable and appropriate. Oxygenating well considering block placement and her comorbidities. Plan to discharge home with IS." History of appendectomy History of cardiac cath 08/2019 ([facility]): essentially normal coronary arteries angiographically, + luminal irregularities. no stents History of cholecystectomy History of colonoscopy History of cystoscopy multiple History of esophagogastroduodenoscopy (EGD) History of gastrointestinal surgery multiple History of joint replacement Rt thumb History of knee replacement procedure of right knee History of open reduction and internal fixation (ORIF) procedure left wrist + manipulation (01/2018) and I&D (10/2019) History of partial gastrectomy History of prior ablation treatment Right LE in January 2020 and left LE 04/18/20 History of sinus surgery History of tonsillectomy and adenoidectomy History of total abdominal hysterectomy and bilateral salpingo-oophorectomy S/P right rotator cuff repair S/P ureteral stent placement Status post laser lithotripsy of ureteral calculus most recent litho nov 2021 04/29/2021: LMA#4 atraumatic x 1. [facility]. 03/01/2021: LMA#4 atraumatic x 1. [facility] [place]. 02/04/2021: LMA#4 atraumatic x 1. [facility]. 07/04/2020: LMA#4 atraumatic x 1. [facility]. No issues per anesthesia postop progress notes. Family History Mother Family history of diabetes mellitus Sister Family history of diabetes mellitus Family history of breast cancer Father Esophageal cancer Other Family history non-contributory No family history of adverse response to anesthesia Social History Smoking Status: Never smoker Second Hand Exposure: Yes ( A CHILD); Hx Alcohol Use: No Hx Substance Use: No Preferred Language: Polish Communication Ability: Effective Visual Impairment: No Limitations Blender / Cook Required: No Beliefs That Will Affect Care: None marital status: Single Current Living Situation: Alone Current Living Situation Comment: APARTMENT COMPLEX>FRIENDS ALL AROUND How many Children do You have: 0 Feels Safe at Home: Yes Assistive Devices: Walker Review of Systems Review of Systems: detailed review of system was done and pertinent positives and negatives are mentioned above. Physical Exam Constitutional: WD/WN, vitals as above no acute distress Eyes: + anicteric sclerae Neck: normal visual inspection Respiratory: Auscultation: lungs clear to auscultation bilaterally Cardiovascular: Rate/Rhythm: regular rate and regular rhythm Heart Sounds: normal S1 and normal S2 Extremities: no edema Gastrointestinal (Abdomen): Inspection/Auscultation: abdomen normal to inspection Musculoskeletal: Extremities: extremities normal to inspection Skin: no rashes Neurologic: no focal motor deficits Psychiatric: Orientation: alert and oriented x 3 Affect: euthymic affect Results & Data ([facility]) Vital Signs (Past 12 Hours) Vital Signs Temp Pulse Resp BP BP Pulse Ox O2 Del Method 12/12/22 10:37 36.4 C L 71 19 94/66 L 95 Room Air 12/12/22 08:08 36.4 C L 74 18 109/71 93 Room Air 12/12/22 02:35 36.4 C L 67 18 115/74 90 Room Air PG Care Time/CCT Total # of Minutes Spent Total Time Spent with Patient: Total time spent is greater than 50% in coordination of care (as documented) at patient's floor/unit and/or counseling patient: Coding Level of Care Code 87115 INT INP/OBS CARE 375MIN Diagnoses JAVI (acute kidney injury) N17.9 Near syncope R55 Ureterolithiasis N20.1
--- NOTE | 2022-12-12 15:50 | Hospitalist Progress Note ---
Date of Service December 12, 2022 Assessment & Plan (1) Near syncope: (2) Fall: (3) Contusion of left shoulder: (4) JAVI (acute kidney injury): Plan Patient is a 72 yr female with H/O chronic diastolic CHF, pulm hypertension, renal disease, COPD, LARRY, hyperlipidemia, chronic pancreatitis, hyperparathyroidism, hypothyroidism, GERD, history of nephrolithiasis, RLS, enclosing spondylitis depression with anxiety who presents to ED secondary to syncope x2 prior to arrival. Fall, syncope Sick sinus syndrome --CT Head:No acute intracranial abnormality. --CT Neck:No acute cervical spine fracture or subluxation. --Carotid Doppler:There is no sonographic evidence of hemodynamically significant stenosis in the right or left carotid arterial system. Antegrade flow is shown in the vertebral arteries. -- Orthostatics negative in ED --ECHO: No significant change from prior study. Was not able to have pacemaker placed due to access issues Appreciate cardiology input Will need leadless pacemaker placement Fall precautions PT OT as able Likely will have pacemaker placement on Thursday Chronic diastolic heart failure Patient follows Dr. Otoole as outpatient Monitor volume status Monitor renal function Hold torsemide for now secondary to JAVI Right Wrist Pain H/O Fall Wrist X ray: No acute fracture or dislocation. Started on low dose prednisone Acute Bronchitis Intolerance to multiple antibiotics Started on low-dose Augmentin Monitor Recent H/O Complicated ESBL UTI Completed IV ertapenem course Blood Cx:Negative to date Urine Culture: Negative JAVI on CKD III Baseline Cr ~ 1.4-1.5 Received gentle IVF Avoid nephrotoxic agents Follows with [facility] Monitor renal function Diuretics held Right rotator cuff tear Left shoulder contusion Not a good surgical candidate as per orthopedics Conservative management Follow-up with orthopedics as needed Peripheral neuropathy Lamictal recently added by neurology Continue pregabalin and duloxetine Hypokalemia Replete electrolytes as needed Monitor COPD LARRY- noncompliant with cpap stable DVT Px: Lovenox SQ Code Status Full code Admission and Anticipated Discharge Date Admission Date: December 08, 2022 Subjective Patient is seen and examined at bedside Right wrist pain better Reports cough with expectoration No recurrence of dizziness Also has chronic back pain Denies any chest pain, dyspnea, nausea, vomiting, abd pain Discussed with Cardiology today Review of Systems Review of Systems: All systems reviewed & are unremarkable except as noted in Subjective Physical Exam Physical Exam: Physical Exam: Vitals signs as noted above General Appearance:Moderately built and nourished, no apparent distress Head: normocephalic, Atraumatic Eyes: normal inspection, EOMI Neck: supple, Trachea midline Respiratory/Chest: Normal breath sounds, +B/L Crackles, R port, No accessory muscle use Cardiovascular: S1, S2, +murmur Abdomen/GI:Soft, Non tender, + abdominal hernia, bowel sounds present Extremities/Musculoskeletal:normal inspection, no edema, left shoulder bruising Neurologic/Psych:AAOX3, grossly no focal neurological deficits Skin: normal color, warm Results & Data Results & Data ([facility]) Vital Signs (Past 12 Hours) Vital Signs Temp Pulse Resp BP Pulse Ox O2 Del Method 12/12/22 15:05 36.4 C L 66 19 104/65 96 Room Air 12/12/22 10:37 36.4 C L 71 19 94/66 L 95 Room Air 12/12/22 08:08 36.4 C L 74 18 109/71 93 Room Air Laboratory Results Short CBC 12/12/22 Range/Units 05:23 WBC 7.67 (4.8-10.8) K/ul Hgb 11.7 L (12.0-16.0) g/dl Hct 35.0 L (37.0-47.0) % Plt Count 180 (130-400) K/uL BMP 12/12/22 05:23 Sodium 143 Potassium 3.6 Chloride 102 Carbon Dioxide 35 H BUN 49 H Creatinine 1.67 H Glucose 92 Calcium 9.5 (3) Contusion of left shoulder Encounter type: initial encounter Qualified Code(s): S40.012A - Contusion of left shoulder, initial encounter
[2022-12-12] MEDS: rOPINIRole HCL 0.25 MG TABLET PO SCH (20:27)
[2022-12-12] MEDS: DULoxetine HCL 20 MG CAP PO SCH (20:27)
[2022-12-12] MEDS: MONTELUKAST SODIUM 10 MG TABLET PO SCH (20:28)
[2022-12-12] MEDS: risperiDONE 2 MG TABLET PO SCH (20:28)
[2022-12-12] MEDS: ENOXAPARIN INJ 40 MG/0.4 ML SYR SQ SCH (20:29)
[2022-12-13] MEDS: LEVOTHYROXINE SODIUM 88 MCG TABLET PO SCH (05:27)
[2022-12-13] MEDS: oxyCODONE/ACETAMINOPHEN 5mg/325mg TAB PO PRN ×2 (05:28→14:56)
[2022-12-13 06:32] LABS: Calcium 9.5 mg/dl (8.5-10.1); Creatinine Clr Calc Pharmacy 31.4 ml/min; Est GFR (African American) 37.2 ml/min; Est GFR (Non-African American) 32.1 ml/min; Potassium 3.9 mmol/L (3.5-5.1)
[2022-12-13] MEDS: LIDOCAINE 5% 1 PATCH TD SCH (08:42)
[2022-12-13] MEDS: CALCITRIOL 0.25 MCG CAPSULE PO SCH ×2 (08:42→20:46)
[2022-12-13] MEDS: AMOXICILLIN/CLAVULANATE 250 MG TAB PO SCH ×2 (08:42→16:42)
[2022-12-13] MEDS: CYANOCOBALAMIN (B-12) 500 MCG TABLET PO SCH (08:43)
[2022-12-13] MEDS: CALCIUM CARBONATE 1250MG TAB PO SCH ×3 (08:43→20:47)
[2022-12-13] MEDS: CHOLECALCIFEROL 1,000 UNITS 25 MCG TAB PO SCH (08:43)
[2022-12-13] MEDS: DESIPRAMINE HCL 50 MG TAB PO SCH ×2 (08:43→20:47)
[2022-12-13] MEDS: PREGABALIN 100 MG CAP PO SCH ×3 (08:44→21:03)
[2022-12-13] MEDS: CEROVITE ADV FORMULA TAB PO SCH (08:44)
[2022-12-13] MEDS: predniSONE 5 MG TAB PO SCH (08:44)
[2022-12-13] MEDS: lamoTRIgine 25 MG TAB PO SCH ×2 (08:44→20:50)
[2022-12-13] MEDS: ESCITALOPRAM OXALATE 20 MG TAB PO SCH (08:44)
[2022-12-13] MEDS: POTASSIUM CHLORIDE CRTAB 20 MEQ TABCR PO SCH (08:44)
[2022-12-13] MEDS: TAMSULOSIN HCL 0.4 MG CAP PO SCH (08:45)
[2022-12-13] MEDS: FLUTICASONE FUROATE 100MCG 14 PUFFS/INHALER INH SCH (08:45)
[2022-12-13] MEDS: valACYclovir HCL 500 MG TABLET PO SCH (08:45)
[2022-12-13] MEDS: ADVANCED PROBIOTIC 1250 MG CAPSULE PO SCH (08:45)
[2022-12-13] MEDS: PANTOprazole 40 MG TAB PO SCH ×2 (08:45→20:53)
[2022-12-13] MEDS: ROSUVASTATIN CALCIUM 10 MG TAB PO SCH (08:45)
[2022-12-13] MEDS: UMECLIDINIUM/VILANTEROL 62.5/25MCG 7 PUFFS/INHALER INH SCH (08:45)
[2022-12-13] MEDS ORDERED: ADVANCED PROBIOTIC 1250 MG CAPSULE PO SCH (09:00)
--- NOTE | 2022-12-13 11:31 | Nephrology Progress Note ---
Date of Service December 13, 2022 Assessment & Plan (1) JAVI (acute kidney injury): Plan: Non-oliguric. Volume status acceptable. Electrolytes normal. Creatinine stable at 1.6 mg/dL. Medications appropriately dosed for kidney function. Diuretics held. Document I/O's. Repeat metabolic profile tomorrow AM. Hold potassium supplement. (2) Near syncope: Plan: History of junctional bradycardia. Cardiology consultation appreciated. Tentatively planned for pacer placement on Thursday. Remains on tele monitor. (3) Ureterolithiasis: Plan: Outpatient follow up with Dr. Roberts at discharge. Noted evidence of CKD with severely atrophic right kidney. Receiving treatment for suspected UTI. Importance of outpatient follow up reviewed. Remains on calcitriol per home Rx. Serum calcium acceptable. Admission and Anticipated Discharge Date Admission Date: December 08, 2022 Subjective No acute events overnight. Liz was resting comfortably in bedside chair this AM. No complaints today. Denies dyspnea or chest pain. Review of Systems Review of Systems: All systems reviewed & are unremarkable except as noted in HPI & below Physical Exam Constitutional: well developed; no acute distress and not ill appearing Eyes: + anicteric sclerae; pupils not irregular ENMT: Ears: + hearing impairment Mouth: oral mucous membranes not dry Neck: normal visual inspection Respiratory: normal respiratory effort Auscultation: lungs clear to auscultation bilaterally Cardiovascular: Rate/Rhythm: regular rate, regular rhythm and + bradycardic Heart Sounds: normal S1, normal S2 and + murmur Extremities: no edema Musculoskeletal: Extremities: no cyanosis and no clubbing Skin: + turgor decreased; no rashes Neurologic: Motor/Sensory: no tremor and no asterixis Psychiatric: Orientation: alert and oriented x 3 Results & Data ([facility]) Vital Signs (Past 12 Hours) Vital Signs Temp Pulse Pulse Resp BP BP Pulse Ox 12/13/22 11:00 36.7 C 66 18 105/63 96 12/13/22 06:57 36.6 C 70 19 105/66 91 12/13/22 02:26 36.7 C 72 18 111/66 91 12/13/22 01:31 71 O2 Del Method 12/13/22 11:00 Room Air 12/13/22 06:57 Room Air 12/13/22 02:26 Room Air 12/13/22 01:31 Laboratory Results Laboratory Results - last 24 hr 12/13/22 05:20 Sodium 140 Potassium 3.9 Chloride 100 Carbon Dioxide 34 H Anion Gap 6 BUN 58 H Creatinine 1.61 H Est Cr Clr Drug Dosing 31.4 Est GFR ( Amer) 37.2 Est GFR (Non-Af Amer) 32.1 BUN/Creatinine Ratio 36.0 H Glucose 90 Calcium 9.5 Magnesium 2.0 PG Care Time/CCT Total # of Minutes Spent Total Time Spent with Patient: Total time spent is greater than 50% in coordination of care (as documented) at patient's floor/unit and/or counseling patient: Coding Level of Care Code 99810 SUB INP/OBS CARE 3/50MIN Diagnoses JAVI (acute kidney injury) N17.9 Near syncope R55 Ureterolithiasis N20.1
--- NOTE | 2022-12-13 16:30 | Hospitalist Progress Note ---
Date of Service December 13, 2022 Assessment & Plan (1) Near syncope: (2) Fall: (3) Contusion of left shoulder: (4) JAVI (acute kidney injury): Plan Patient is a 72 yr female with H/O chronic diastolic CHF, pulm hypertension, renal disease, COPD, LARRY, hyperlipidemia, chronic pancreatitis, hyperparathyroidism, hypothyroidism, GERD, history of nephrolithiasis, RLS, enclosing spondylitis depression with anxiety who presents to ED secondary to syncope x2 prior to arrival. Fall, syncope Sick sinus syndrome --CT Head:No acute intracranial abnormality. --CT Neck:No acute cervical spine fracture or subluxation. --Carotid Doppler:There is no sonographic evidence of hemodynamically significant stenosis in the right or left carotid arterial system. Antegrade flow is shown in the vertebral arteries. -- Orthostatics negative in ED --ECHO: No significant change from prior study. Was not able to have pacemaker placed due to access issues Appreciate cardiology input Will need leadless pacemaker placement Fall precautions PT OT as able Likely will have pacemaker placement on Thursday Chronic diastolic heart failure Patient follows Dr. Otoole as outpatient Monitor volume status, renal function Hold torsemide for now secondary to JAVI Resume diuretics as able Right Wrist Pain H/O Fall Wrist X ray: No acute fracture or dislocation. Continue low dose prednisone Wrist pain much improved Acute Bronchitis Intolerance to multiple antibiotics Continue Augmentin Monitor Recent H/O Complicated ESBL UTI Completed IV ertapenem course Blood Cx:Negative to date Urine Culture: Negative JAVI on CKD III Baseline Cr ~ 1.4-1.5 Received gentle IVF Avoid nephrotoxic agents [place]s [place] [facility] Monitor renal function Diuretics held Right rotator cuff tear Left shoulder contusion Not a good surgical candidate as per orthopedics Conservative management Follow-up with orthopedics as needed Peripheral neuropathy Lamictal recently added by neurology Continue pregabalin and duloxetine Hypokalemia Replete electrolytes as needed Monitor COPD LARRY- noncompliant with cpap stable DVT Px: Lovenox SQ Code Status Full code Admission and Anticipated Discharge Date Admission Date: December 08, 2022 Subjective Patient is seen and examined at bedside States having brief episode of dyspnea this morning which resolved during my encounter Also states having dizziness today Right wrist pain is much improved Less cough today Denies any chest pain, dyspnea, nausea, vomiting, abd pain Review of Systems Review of Systems: All systems reviewed & are unremarkable except as noted in Subjective Physical Exam Physical Exam: Physical Exam: Vitals signs as noted above General Appearance:Moderately built and nourished, no apparent distress Head: normocephalic, Atraumatic Eyes: normal inspection, EOMI Neck: supple, Trachea midline Respiratory/Chest: Normal breath sounds, +B/L Crackles, R port, No accessory muscle use Cardiovascular: S1, S2, +murmur Abdomen/GI:Soft, Non tender, + abdominal hernia, bowel sounds present Extremities/Musculoskeletal:normal inspection, no edema, left shoulder bruising Neurologic/Psych:AAOX3, grossly no focal neurological deficits Skin: normal color, warm Results & Data Results & Data ([facility]) Vital Signs (Past 12 Hours) Vital Signs Temp Pulse Resp BP Pulse Ox O2 Del Method 12/13/22 15:02 36.6 C 64 19 113/63 95 Room Air 12/13/22 11:00 36.7 C 66 18 105/63 96 Room Air 12/13/22 06:57 36.6 C 70 19 105/66 91 Room Air Laboratory Results [facility] 12/13/22 05:20 Sodium 140 Potassium 3.9 Chloride 100 Carbon Dioxide 34 H BUN 58 H Creatinine 1.61 H Glucose 90 Calcium 9.5 (3) Contusion of left shoulder Encounter type: initial encounter Qualified Code(s): S40.012A - Contusion of left shoulder, initial encounter
[2022-12-13] MEDS: ENOXAPARIN INJ 40 MG/0.4 ML SYR SQ SCH (20:49)
[2022-12-13] MEDS: MONTELUKAST SODIUM 10 MG TABLET PO SCH (20:52)
[2022-12-13] MEDS: rOPINIRole HCL 0.25 MG TABLET PO SCH (20:54)
[2022-12-13] MEDS: risperiDONE 2 MG TABLET PO SCH (20:55)
[2022-12-13] MEDS: DULoxetine HCL 20 MG CAP PO SCH (21:10)
[2022-12-14] MEDS: oxyCODONE/ACETAMINOPHEN 5mg/325mg TAB PO PRN ×3 (04:06→20:32)
[2022-12-14] MEDS: LEVOTHYROXINE SODIUM 88 MCG TABLET PO SCH (04:06)
[2022-12-14 06:06] LABS: BUN Creatinine Ratio 40.1 (10-20); Calcium 9.1 mg/dl (8.5-10.1); Creatinine Clr Calc Pharmacy 34.5 ml/min; Est GFR (African American) 41.5 ml/min; Est GFR (Non-African American) 35.8 ml/min; Potassium 3.2 mmol/L (3.5-5.1)
[2022-12-14] MEDS: TAMSULOSIN HCL 0.4 MG CAP PO SCH (09:08)
[2022-12-14] MEDS: CEROVITE ADV FORMULA TAB PO SCH (09:08)
[2022-12-14] MEDS: AMOXICILLIN/CLAVULANATE 250 MG TAB PO SCH ×2 (09:08→16:30)
[2022-12-14] MEDS: CALCIUM CARBONATE 1250MG TAB PO SCH ×3 (09:08→20:38)
[2022-12-14] MEDS: PREGABALIN 100 MG CAP PO SCH ×3 (09:08→20:42)
[2022-12-14] MEDS: PANTOprazole 40 MG TAB PO SCH ×2 (09:08→20:38)
[2022-12-14] MEDS: LIDOCAINE 5% 1 PATCH TD SCH (09:09)
[2022-12-14] MEDS: ROSUVASTATIN CALCIUM 10 MG TAB PO SCH (09:09)
[2022-12-14] MEDS: CALCITRIOL 0.25 MCG CAPSULE PO SCH ×2 (09:09→20:35)
[2022-12-14] MEDS: predniSONE 5 MG TAB PO SCH (09:09)
[2022-12-14] MEDS: ADVANCED PROBIOTIC 1250 MG CAPSULE PO SCH (09:09)
[2022-12-14] MEDS: ESCITALOPRAM OXALATE 20 MG TAB PO SCH (09:10)
[2022-12-14] MEDS: lamoTRIgine 25 MG TAB PO SCH ×2 (09:10→20:37)
[2022-12-14] MEDS: CHOLECALCIFEROL 1,000 UNITS 25 MCG TAB PO SCH (09:10)
[2022-12-14] MEDS: UMECLIDINIUM/VILANTEROL 62.5/25MCG 7 PUFFS/INHALER INH SCH (09:10)
[2022-12-14] MEDS: CYANOCOBALAMIN (B-12) 500 MCG TABLET PO SCH (09:10)
[2022-12-14] MEDS: DESIPRAMINE HCL 50 MG TAB PO SCH ×2 (09:10→20:36)
[2022-12-14] MEDS: FLUTICASONE FUROATE 100MCG 14 PUFFS/INHALER INH SCH (09:11)
[2022-12-14] MEDS: valACYclovir HCL 500 MG TABLET PO SCH (09:11)
[2022-12-14] MEDS ORDERED: POTASSIUM CHLORIDE CRTAB 20 MEQ TABCR PO STA (09:18)
--- NOTE | 2022-12-14 09:22 | Nephrology Progress Note ---
Date of Service December 14, 2022 Assessment & Plan (1) JAVI (acute kidney injury): Plan: Non-oliguric. Volume status acceptable. Electrolytes normal. Creatinine improved to 1.47 mg/dL mg/dL. Medications appropriately dosed for kidney function. Diuretics held. Document I/O's. Repeat metabolic profile tomorrow AM. KCl 40 mEq provided this AM and 20 mEq BID to be restarted this afternoon. (2) Near syncope: Plan: History of junctional bradycardia. Cardiology consultation appreciated. Tentatively planned for pacer placement on Thursday. Remains on tele monitor. (3) Ureterolithiasis: Plan: Outpatient follow up with Dr. Roberts at discharge. Noted evidence of CKD with severely atrophic right kidney. Receiving treatment for suspected UTI. Importance of outpatient follow up reviewed. Remains on calcitriol per home Rx. Serum calcium acceptable. (4) Acute on chronic diastolic CHF (congestive heart failure): Plan: Increased rales on exam. Torsemide 40 mg provided this AM. Consider restarting home dose of 40 mg PO BID, or adding extra PRN. monitor I/O's. Admission and Anticipated Discharge Date Admission Date: December 08, 2022 Subjective No acute events overnight. Liz states that she feels reasonably well this AM. Reports increasing wheeze. Some weakness. No chest pain or palpitations. No lightheadedness, dizziness, syncope, or presyncope. Review of Systems Review of Systems: All systems reviewed & are unremarkable except as noted in HPI & below Physical Exam Constitutional: well developed; no acute distress and not ill appearing Eyes: + anicteric sclerae; pupils not irregular ENMT: Ears: + hearing impairment Mouth: oral mucous membranes not dry Neck: normal visual inspection Respiratory: normal respiratory effort Auscultation: + rales Cardiovascular: Rate/Rhythm: regular rate, regular rhythm and + bradycardic Heart Sounds: normal S1, normal S2 and + murmur Extremities: no edema Musculoskeletal: Extremities: no cyanosis and no clubbing Skin: + turgor decreased; no rashes Neurologic: Motor/Sensory: no tremor and no asterixis Psychiatric: Orientation: alert and oriented x 3 Results & Data ([facility]) Vital Signs (Past 12 Hours) Vital Signs Temp Pulse Resp BP Pulse Ox O2 Del Method 12/14/22 07:40 36.3 C L 64 18 112/63 92 Room Air 12/14/22 03:43 36.4 C L 60 16 127/71 94 Room Air 12/13/22 22:05 Room Air Laboratory Results Laboratory Results - last 24 hr 12/14/22 05:18 Sodium 139 Potassium 3.2 L Chloride 102 Carbon Dioxide 32 Anion Gap 5 BUN 59 H Creatinine 1.47 H Est Cr Clr Drug Dosing 34.5 Est GFR ( Amer) 41.5 Est GFR (Non-Af Amer) 35.8 BUN/Creatinine Ratio 40.1 H Glucose 91 Calcium 9.1 Magnesium 2.0 PG Care Time/CCT Total # of Minutes Spent Total Time Spent with Patient: Total time spent is greater than 50% in coordination of care (as documented) at patient's floor/unit and/or counseling patient: Coding Level of Care Code 54298 SUB INP/OBS CARE 3/50MIN Diagnoses JAVI (acute kidney injury) N17.9 Near syncope R55 Ureterolithiasis N20.1 Acute on chronic diastolic CHF (congestive heart failure) I50.33
[2022-12-14] MEDS: TORSEMIDE 10 MG TAB PO SCH (10:08)
--- NOTE | 2022-12-14 16:57 | Hospitalist Progress Note ---
Date of Service December 14, 2022 Assessment & Plan (1) Near syncope: (2) Fall: (3) Contusion of left shoulder: (4) JAVI (acute kidney injury): Plan Patient is a 72 yr female with H/O chronic diastolic CHF, pulm hypertension, renal disease, COPD, LARRY, hyperlipidemia, chronic pancreatitis, hyperparathyroidism, hypothyroidism, GERD, history of nephrolithiasis, RLS, enclosing spondylitis depression with anxiety who presents to ED secondary to syncope x2 prior to arrival. Fall, syncope Sick sinus syndrome --CT Head:No acute intracranial abnormality. --CT Neck:No acute cervical spine fracture or subluxation. --Carotid Doppler:There is no sonographic evidence of hemodynamically significant stenosis in the right or left carotid arterial system. Antegrade flow is shown in the vertebral arteries. -- Orthostatics negative in ED --ECHO: No significant change from prior study. Was not able to have pacemaker placed due to access issues Appreciate cardiology input Will need leadless pacemaker placement Fall precautions PT OT as able Likely will have pacemaker placement on Thursday Chronic diastolic heart failure Patient follows Dr. Otoole as outpatient Monitor volume status, renal function Initially torsemide held due to JAVI Restarted torsemide 40 mg daily Right Wrist Pain H/O Fall Wrist X ray: No acute fracture or dislocation. Received prednisone for 3 days Wrist pain much improved Acute Bronchitis Intolerance to multiple antibiotics Continue Augmentin Monitor Recent H/O Complicated ESBL UTI Completed IV ertapenem course Blood Cx:Negative to date Urine Culture: Negative JAVI on CKD III Baseline Cr ~ 1.4-1.5 Received gentle IVF Avoid nephrotoxic agents [place] [facility] [place] Monitor renal function Right rotator cuff tear Left shoulder contusion Not a good surgical candidate as per orthopedics Conservative management Follow-up with orthopedics as needed Peripheral neuropathy Lamictal recently added by neurology Continue pregabalin and duloxetine Hypokalemia Replete electrolytes as needed Monitor COPD LARRY- noncompliant with cpap stable DVT Px: Lovenox SQ Code Status Full code Admission and Anticipated Discharge Date Admission Date: December 08, 2022 Subjective Patient is seen and examined at bedside States having intermittent dizziness with ambulation No new complaints Still has cough Denies dyspnea, chest pain, dyspnea, nausea, vomiting, abd pain Review of Systems Review of Systems: All systems reviewed & are unremarkable except as noted in Subjective Physical Exam Physical Exam: Physical Exam: Vitals signs as noted above General Appearance:Moderately built and nourished, no apparent distress Head: normocephalic, Atraumatic Eyes: normal inspection, EOMI Neck: supple, Trachea midline Respiratory/Chest: Normal breath sounds, +B/L Crackles, R port, No accessory muscle use Cardiovascular: S1, S2, +murmur Abdomen/GI:Soft, Non tender, + abdominal hernia, bowel sounds present Extremities/Musculoskeletal:normal inspection, no edema, left shoulder bruising Neurologic/Psych:AAOX3, grossly no focal neurological deficits Skin: normal color, warm Results & Data Results & Data ([facility]) Vital Signs (Past 12 Hours) Vital Signs Temp Pulse Resp BP Pulse Ox O2 Del Method 12/14/22 15:30 36.4 C L 62 18 102/64 95 Room Air 12/14/22 10:57 36.3 C L 63 19 96/59 L 91 Room Air 12/14/22 07:40 36.3 C L 64 18 112/63 92 Room Air Laboratory Results [facility] 12/14/22 05:18 Sodium 139 Potassium 3.2 L Chloride 102 Carbon Dioxide 32 BUN 59 H Creatinine 1.47 H Glucose 91 Calcium 9.1 (3) Contusion of left shoulder Encounter type: initial encounter Qualified Code(s): S40.012A - Contusion of left shoulder, initial encounter
[2022-12-14] MEDS: ENOXAPARIN INJ 40 MG/0.4 ML SYR SQ SCH (20:33)
[2022-12-14] MEDS: POTASSIUM CHLORIDE CRTAB 20 MEQ TABCR PO SCH (20:34)
[2022-12-14] MEDS: MONTELUKAST SODIUM 10 MG TABLET PO SCH (20:35)
[2022-12-14] MEDS: rOPINIRole HCL 0.25 MG TABLET PO SCH (20:36)
[2022-12-14] MEDS: risperiDONE 2 MG TABLET PO SCH (20:37)
[2022-12-14] MEDS: DULoxetine HCL 20 MG CAP PO SCH (20:37)
[2022-12-15] MEDS: oxyCODONE/ACETAMINOPHEN 5mg/325mg TAB PO PRN ×3 (04:39→20:47)
[2022-12-15] MEDS: LEVOTHYROXINE SODIUM 88 MCG TABLET PO SCH (04:40)
[2022-12-15 06:27] LABS: Hematocrit (blood only) 32.9 % (37.0-47.0); Hemoglobin 10.9 g/dl (12.0-16.0); Mean Corpuscular Hemoglobin 29.4 pg (25.0-34.0); Mean Corpuscular Hgb Conc 33.1 g/dL (32.0-36.0); Mean Corpuscular Volume 88.7 fL (80.0-100.0); Mean Platelet Volume 11.1 fL (9.4-12.4); Platelet Count 176 K/uL (130-400); RDW Coefficient of Variation 13.8 % (11.5-14.5); RDW Standard Deviation 44.8 fL (36.4-46.3); Red Blood Count 3.71 M/uL (4.20-5.40); White Blood Count 6.76 K/ul (4.8-10.8)
[2022-12-15 06:45] LABS: BUN Creatinine Ratio 37.8 (10-20); Calcium 9.2 mg/dl (8.5-10.1); Creatinine Clr Calc Pharmacy 32.3 ml/min; Est GFR (African American) 38.6 ml/min; Est GFR (Non-African American) 33.3 ml/min; Magnesium 1.8 mg/dl (1.7-2.4); Potassium 3.1 mmol/L (3.5-5.1)
[2022-12-15] MEDS: LIDOCAINE 5% 1 PATCH TD SCH (08:10)
[2022-12-15] MEDS: FLUTICASONE FUROATE 100MCG 14 PUFFS/INHALER INH SCH (08:11)
[2022-12-15] MEDS: lamoTRIgine 25 MG TAB PO SCH ×2 (08:12→20:50)
[2022-12-15] MEDS: PANTOprazole 40 MG TAB PO SCH ×2 (08:12→20:50)
[2022-12-15] MEDS: CALCIUM CARBONATE 1250MG TAB PO SCH ×3 (08:12→20:50)
[2022-12-15] MEDS: CYANOCOBALAMIN (B-12) 500 MCG TABLET PO SCH (08:13)
[2022-12-15] MEDS: DESIPRAMINE HCL 50 MG TAB PO SCH ×2 (08:13→20:50)
[2022-12-15] MEDS: ROSUVASTATIN CALCIUM 10 MG TAB PO SCH (08:13)
[2022-12-15] MEDS: CALCITRIOL 0.25 MCG CAPSULE PO SCH ×2 (08:13→20:51)
[2022-12-15] MEDS: CEROVITE ADV FORMULA TAB PO SCH (08:13)
[2022-12-15] MEDS: ADVANCED PROBIOTIC 1250 MG CAPSULE PO SCH (08:13)
[2022-12-15] MEDS: AMOXICILLIN/CLAVULANATE 250 MG TAB PO SCH ×2 (08:13→17:08)
[2022-12-15] MEDS: valACYclovir HCL 500 MG TABLET PO SCH (08:14)
[2022-12-15] MEDS: TORSEMIDE 10 MG TAB PO SCH ×2 (08:14→17:08)
[2022-12-15] MEDS: ESCITALOPRAM OXALATE 20 MG TAB PO SCH (08:14)
[2022-12-15] MEDS: POTASSIUM CHLORIDE CRTAB 20 MEQ TABCR PO SCH ×2 (08:14→20:52)
[2022-12-15] MEDS: CHOLECALCIFEROL 1,000 UNITS 25 MCG TAB PO SCH (08:14)
[2022-12-15] MEDS: UMECLIDINIUM/VILANTEROL 62.5/25MCG 7 PUFFS/INHALER INH SCH (08:15)
[2022-12-15] MEDS: TAMSULOSIN HCL 0.4 MG CAP PO SCH (08:15)
[2022-12-15] MEDS: PREGABALIN 100 MG CAP PO SCH ×3 (08:17→20:47)
[2022-12-15] MEDS ORDERED: POTASSIUM CHLORIDE CRTAB 20 MEQ TABCR PO SCH ×2 (09:00→21:00)
[2022-12-15] MEDS ORDERED: POTASSIUM CHLORIDE CRTAB 20 MEQ TABCR PO ONE (09:00)
--- NOTE | 2022-12-15 09:21 | Nephrology Progress Note ---
Date of Service December 15, 2022 Assessment & Plan (1) JAVI (acute kidney injury): Plan: Non-oliguric. Creatinine stable at 1.56 mg/dL. Electrolytes notable for hypokalemia. KCl 40 mEq BID. Medications appropriately dosed for kidney function. Torsemide 40 mg provided yesterday. Net negative 1 L; weight down ~1 kg. Evidence of pulmonary edema persists. Torsemide increased to home dose of torsemide 40 mg BID this AM. Document I/O's. Repeat metabolic profile this afternoon. (2) Near syncope: Plan: History of junctional bradycardia. Tentatively planned for pacer placement tomorrow. Remains on tele monitor. (3) Ureterolithiasis: Plan: Outpatient follow up with Dr. Roberts at discharge. Noted evidence of CKD with severely atrophic right kidney. Receiving treatment for suspected UTI. Importance of outpatient follow up reviewed. Remains on calcitriol per home Rx. Serum calcium acceptable. (4) Acute on chronic diastolic CHF (congestive heart failure): Plan: Torsemide increased to 40 mg BID this AM. Monitor I/O's. Daily weight. Low sodium diet. Admission and Anticipated Discharge Date Admission Date: December 08, 2022 Subjective No acute events overnight. Negative ~1 L. HULL and some wheezing persist. No fevers or chills. No chest pain or palpitations. Liz denies lightheadedness, dizziness, or presyncope. Cam remains intact. Liz states that she would prefer to leave it in. She reports some difficulty getting out of bed to void. Review of Systems Review of Systems: All systems reviewed & are unremarkable except as noted in HPI & below Physical Exam Constitutional: well developed; no acute distress Eyes: + anicteric sclerae; pupils not irregular ENMT: Ears: + hearing impairment Mouth: oral mucous membranes not dry Neck: normal visual inspection Respiratory: normal respiratory effort Auscultation: lungs clear to auscultation bilaterally and + rales Cardiovascular: Rate/Rhythm: regular rate, regular rhythm and + bradycardic Heart Sounds: normal S1, normal S2 and + murmur Extremities: no edema Musculoskeletal: Extremities: no cyanosis and no clubbing Skin: + turgor decreased; no jaundice Neurologic: Motor/Sensory: no tremor and no asterixis Psychiatric: Orientation: alert and oriented x 3 Genitourinary: Cam with clear yellow urine in beg. Results & Data ([facility]) Vital Signs (Past 12 Hours) Vital Signs Temp Pulse Pulse Resp BP Pulse Ox O2 Del Method 12/15/22 07:30 37.1 C 63 16 92 Room Air 12/15/22 08:00 65 18 116/61 91 Room Air 12/15/22 03:07 36.6 C 63 18 120/64 92 Room Air 12/14/22 23:54 66 12/14/22 22:59 36.5 C 68 18 105/56 L 91 Room Air 12/14/22 22:20 Room Air Laboratory Results Laboratory Results - last 24 hr 12/15/22 12/15/22 05:41 05:41 WBC 6.76 RBC 3.71 L Hgb 10.9 L Hct 32.9 L MCV 88.7 MCH 29.4 MCHC 33.1 RDW Std Deviation 44.8 RDW Coeff of David 13.8 Plt Count 176 MPV 11.1 Sodium 141 Potassium 3.1 L Chloride 101 Carbon Dioxide 33 H Anion Gap 7 BUN 59 H Creatinine 1.56 H Est Cr Clr Drug Dosing 32.3 Est GFR ( Amer) 38.6 Est GFR (Non-Af Amer) 33.3 BUN/Creatinine Ratio 37.8 H Glucose 102 H Calcium 9.2 Magnesium 1.8 PG Care Time/CCT Total # of Minutes Spent Total Time Spent with Patient: Total time spent is greater than 50% in coordination of care (as documented) at patient's floor/unit and/or counseling patient: Coding Level of Care Code 85972 SUB INP/OBS CARE 3/50MIN Diagnoses JAVI (acute kidney injury) N17.9 Near syncope R55 Ureterolithiasis N20.1 Acute on chronic diastolic CHF (congestive heart failure) I50.33
--- NOTE | 2022-12-15 13:36 | Hospitalist Progress Note ---
Date of Service December 15, 2022 Assessment & Plan (1) Near syncope: (2) Fall: (3) Contusion of left shoulder: (4) JAVI (acute kidney injury): Plan Patient is a 72 yr female with H/O chronic diastolic CHF, pulm hypertension, renal disease, COPD, LARRY, hyperlipidemia, chronic pancreatitis, hyperparathyroidism, hypothyroidism, GERD, history of nephrolithiasis, RLS, enclosing spondylitis depression with anxiety who presents to ED secondary to syncope x2 prior to arrival. Fall, syncope Sick sinus syndrome --CT Head:No acute intracranial abnormality. --CT Neck:No acute cervical spine fracture or subluxation. --Carotid Doppler:There is no sonographic evidence of hemodynamically significant stenosis in the right or left carotid arterial system. Antegrade flow is shown in the vertebral arteries. -- Orthostatics negative in ED --ECHO: No significant change from prior study. Appreciate cardiology input Will need leadless pacemaker placement Fall precautions PT OT as able Plan for pacemaker placement tomorrow N.p.o. after midnight Chronic diastolic heart failure Patient follows Dr. Otoole as outpatient Monitor volume status, renal function Initially torsemide held due to JAVI Restarted torsemide 40 mg daily>> increased to 40 mg twice daily Right Wrist Pain H/O Fall Wrist X ray: No acute fracture or dislocation. Received prednisone for 3 days Wrist pain resolved Acute Bronchitis Intolerance to multiple antibiotics Continue Augmentin Monitor Recent H/O Complicated ESBL UTI Completed IV ertapenem course Blood Cx:Negative to date Urine Culture: Negative JAVI on CKD III Baseline Cr ~ 1.4-1.5 Received gentle IVF Avoid nephrotoxic agents Follows with [facility] [place] Monitor renal function Cr 1.56 today Right rotator cuff tear Left shoulder contusion Not a good surgical candidate as per orthopedics Conservative management Follow-up with orthopedics as needed Peripheral neuropathy Lamictal recently added by neurology Continue pregabalin and duloxetine Hypokalemia Replete electrolytes as needed Monitor COPD LARRY- noncompliant with cpap stable DVT Px: Lovenox SQ Code Status Full code Admission and Anticipated Discharge Date Admission Date: December 08, 2022 Subjective Patient is seen and examined at bedside States having dyspnea, intermittent wheezing associated with cough Also states having dizziness with ambulation No other complaints Plan for pacemaker placement tomorrow Denies chest pain, nausea, vomiting, abd pain Review of Systems Review of Systems: All systems reviewed & are unremarkable except as noted in Subjective Physical Exam Physical Exam: Physical Exam: Vitals signs as noted above General Appearance:Moderately built and nourished, no apparent distress Head: normocephalic, Atraumatic Eyes: normal inspection, EOMI Neck: supple, Trachea midline Respiratory/Chest: Normal breath sounds, +B/L Crackles, R port, No accessory muscle use Cardiovascular: S1, S2, +murmur Abdomen/GI:Soft, Non tender, + abdominal hernia, bowel sounds present Extremities/Musculoskeletal:normal inspection, no edema, left shoulder bruising Neurologic/Psych:AAOX3, grossly no focal neurological deficits Skin: normal color, warm Results & Data Results & Data ([facility]) Vital Signs (Past 12 Hours) Vital Signs Temp Pulse Pulse Resp BP BP Pulse Ox 12/15/22 11:16 36.4 C L 60 16 119/75 96 12/15/22 09:53 12/15/22 09:53 60 12/15/22 07:30 37.1 C 63 16 92 12/15/22 08:00 65 18 116/61 91 12/15/22 03:07 36.6 C 63 18 120/64 92 O2 Del Method 12/15/22 11:16 Room Air 12/15/22 09:53 Room Air 12/15/22 09:53 12/15/22 07:30 Room Air 12/15/22 08:00 Room Air 12/15/22 03:07 Room Air Laboratory Results Short CBC 12/15/22 Range/Units 05:41 WBC 6.76 (4.8-10.8) K/ul Hgb 10.9 L (12.0-16.0) g/dl Hct 32.9 L (37.0-47.0) % Plt Count 176 (130-400) K/uL BMP 12/15/22 05:41 Sodium 141 Potassium 3.1 L Chloride 101 Carbon Dioxide 33 H BUN 59 H Creatinine 1.56 H Glucose 102 H Calcium 9.2 (3) Contusion of left shoulder Encounter type: initial encounter Qualified Code(s): S40.012A - Contusion of left shoulder, initial encounter
[2022-12-15 17:05] LABS: Albumin Level 3.6 gm/dl (3.4-5.0); BUN Creatinine Ratio 29.4 (10-20); Calcium 9.8 mg/dl (8.5-10.1); Creatinine Clr Calc Pharmacy 24.7 ml/min; Est GFR (African American) 27.9 ml/min; Est GFR (Non-African American) 24.1 ml/min; Phosphorus 4.5 mg/dl (2.5-4.9); Potassium 3.2 mmol/L (3.5-5.1)
[2022-12-15] MEDS ORDERED: POTASSIUM CHLORIDE CRTAB 20 MEQ TABCR PO STA (17:51)
[2022-12-15] MEDS: rOPINIRole HCL 0.25 MG TABLET PO SCH (20:49)
[2022-12-15] MEDS: risperiDONE 2 MG TABLET PO SCH (20:49)
[2022-12-15] MEDS: DULoxetine HCL 20 MG CAP PO SCH (20:50)
[2022-12-15] MEDS: MONTELUKAST SODIUM 10 MG TABLET PO SCH (20:51)
[2022-12-15 22:08] LABS: Partial Thromboplastin Ratio 1.2; Partial Thromboplastin Time 33.6 Seconds (21.0-31.0)
[2022-12-16] MEDS: LEVOTHYROXINE SODIUM 88 MCG TABLET PO SCH (05:37)
[2022-12-16] MEDS ORDERED: VANCOMYCIN HCL 1 GM/270 ML BAG IV SCH (06:00)
[2022-12-16 06:35] LABS: Calcium 9.5 mg/dl (8.5-10.1); Creatinine Clr Calc Pharmacy 33.6 ml/min; Est GFR (African American) 40.5 ml/min; Est GFR (Non-African American) 34.9 ml/min; Magnesium 1.7 mg/dl (1.7-2.4); Potassium 3.4 mmol/L (3.5-5.1)
[2022-12-16] MEDS: UMECLIDINIUM/VILANTEROL 62.5/25MCG 7 PUFFS/INHALER INH SCH (07:46)
[2022-12-16] MEDS: TAMSULOSIN HCL 0.4 MG CAP PO SCH (07:46)
[2022-12-16] MEDS: ESCITALOPRAM OXALATE 20 MG TAB PO SCH (07:47)
[2022-12-16] MEDS: CEROVITE ADV FORMULA TAB PO SCH (07:47)
[2022-12-16] MEDS: valACYclovir HCL 500 MG TABLET PO SCH (07:47)
[2022-12-16] MEDS: CYANOCOBALAMIN (B-12) 500 MCG TABLET PO SCH (07:47)
[2022-12-16] MEDS: FLUTICASONE FUROATE 100MCG 14 PUFFS/INHALER INH SCH (07:47)
[2022-12-16] MEDS: CHOLECALCIFEROL 1,000 UNITS 25 MCG TAB PO SCH (07:47)
[2022-12-16] MEDS: ROSUVASTATIN CALCIUM 10 MG TAB PO SCH (07:47)
[2022-12-16] MEDS: lamoTRIgine 25 MG TAB PO SCH ×2 (07:48→21:21)
[2022-12-16] MEDS: DESIPRAMINE HCL 50 MG TAB PO SCH ×2 (07:48→21:20)
[2022-12-16] MEDS: CALCIUM CARBONATE 1250MG TAB PO SCH ×3 (07:48→21:20)
[2022-12-16] MEDS: POTASSIUM CHLORIDE CRTAB 20 MEQ TABCR PO SCH ×2 (07:48→21:21)
[2022-12-16] MEDS: PANTOprazole 40 MG TAB PO SCH ×2 (07:49→22:58)
[2022-12-16] MEDS: LIDOCAINE 5% 1 PATCH TD SCH (07:49)
[2022-12-16] MEDS: ADVANCED PROBIOTIC 1250 MG CAPSULE PO SCH (07:49)
[2022-12-16] MEDS: CALCITRIOL 0.25 MCG CAPSULE PO SCH ×2 (07:49→21:20)
[2022-12-16] MEDS: TORSEMIDE 10 MG TAB PO SCH ×2 (07:50→16:25)
[2022-12-16] MEDS: AMOXICILLIN/CLAVULANATE 250 MG TAB PO SCH ×2 (07:52→16:25)
[2022-12-16] MEDS: PREGABALIN 100 MG CAP PO SCH ×3 (08:32→21:22)
--- NOTE | 2022-12-16 09:49 | Nephrology Progress Note ---
Date of Service December 16, 2022 Assessment & Plan (1) JAVI (acute kidney injury): Plan: Non-oliguric. Creatinine stable at 1.5 mg/dL. Electrolytes acceptable. Hypokalemia improving. KCl 40 mEq BID. Medications appropriately dosed for kidney function. Torsemide 40 mg BID provided yesterday. Net negative 2.6 L; weight down ~0.5 kg. Evidence of pulmonary edema improving. Continue torsemide to encourage negative fluid balance. Patient refused this AM. Document I/O's. Repeat metabolic profile tomorrow AM. (2) Near syncope: Plan: History of junctional bradycardia. Tentatively planned for pacer placement. Remains on tele monitor. (3) Ureterolithiasis: Plan: Outpatient follow up with Dr. Roberts at discharge. Noted evidence of CKD with severely atrophic right kidney. Receiving treatment for suspected UTI. Importance of outpatient follow up reviewed. Remains on calcitriol per home Rx. (4) Acute on chronic diastolic CHF (congestive heart failure): Plan: Torsemide increased to 40 mg BID yesterday. Monitor I/O's. Daily weight. Low sodium diet. Admission and Anticipated Discharge Date Admission Date: December 08, 2022 Subjective No acute events overnight. Liz was sleeping this morning but woke to voice. Denies chest pain or palpitations. No shortness of breath. Refused Torsemide this AM. Breathing improved with diuresis yesterday. Review of Systems Review of Systems: All systems reviewed & are unremarkable except as noted in HPI & below Physical Exam Constitutional: well developed; no acute distress Eyes: + anicteric sclerae; pupils not irregular ENMT: Ears: + hearing impairment Mouth: oral mucous membranes not dry Neck: normal visual inspection Respiratory: normal respiratory effort Auscultation: lungs clear to auscultation bilaterally and + rales Cardiovascular: Rate/Rhythm: regular rate, regular rhythm and + bradycardic Heart Sounds: normal S1, normal S2 and + murmur Extremities: no edema Musculoskeletal: Extremities: no cyanosis and no clubbing Skin: + turgor decreased; no rashes and no jaundice Neurologic: Motor/Sensory: no tremor and no asterixis Psychiatric: Orientation: alert and oriented x 3 Results & Data ([facility]) Vital Signs (Past 12 Hours) Vital Signs Temp Pulse Pulse Resp BP BP Pulse Ox 12/16/22 08:00 12/16/22 08:00 61 12/16/22 08:00 36.4 C L 67 18 125/75 97 12/16/22 03:44 94 12/16/22 03:38 36.5 C 59 L 18 134/66 91 12/15/22 23:36 66 12/15/22 22:48 12/15/22 22:33 36.4 C L 61 20 113/65 92 O2 Del Method O2 Flow Rate 12/16/22 08:00 Room Air 12/16/22 08:00 12/16/22 08:00 Room Air 12/16/22 03:44 Nasal Cannula 2.0 12/16/22 03:38 Room Air 12/15/22 23:36 12/15/22 22:48 Room Air 12/15/22 22:33 Room Air Laboratory Results Laboratory Results - last 24 hr 12/15/22 12/15/22 12/15/22 16:31 21:48 21:48 APTT 33.6 H PTT Ratio 1.2 Sodium 136 Potassium 3.2 L Chloride 97 L Carbon Dioxide 34 H Anion Gap 5 BUN 60 H Creatinine 2.04 H D Est Cr Clr Drug Dosing 24.7 Est GFR ( Amer) 27.9 Est GFR (Non-Af Amer) 24.1 BUN/Creatinine Ratio 29.4 H Glucose 136 H Calcium 9.8 Phosphorus 4.5 Magnesium Troponin I High Sens 15.6 H Albumin 3.6 12/16/22 12/16/22 00:26 05:32 APTT PTT Ratio Sodium 141 Potassium 3.4 L Chloride 99 Carbon Dioxide 33 H Anion Gap 9 BUN 63 H Creatinine 1.50 H D Est Cr Clr Drug Dosing 33.6 Est GFR ( Amer) 40.5 Est GFR (Non-Af Amer) 34.9 BUN/Creatinine Ratio 42.0 H Glucose 96 Calcium 9.5 Phosphorus Magnesium 1.7 Troponin I High Sens 15.2 H Albumin PG Care Time/CCT Total # of Minutes Spent Total Time Spent with Patient: Total time spent is greater than 50% in coordination of care (as documented) at patient's floor/unit and/or counseling patient: Coding Level of Care Code 78078 SUB INP/OBS CARE 3/50MIN Diagnoses JAVI (acute kidney injury) N17.9 Near syncope R55 Ureterolithiasis N20.1 Acute on chronic diastolic CHF (congestive heart failure) I50.33
[2022-12-16] MEDS ORDERED: MIDAZOLAM HCL 5 MG/ML 1 ML VIAL ONE (12:54)
[2022-12-16] MEDS ORDERED: fentaNYL citrate 100 MCG/2 ML VIAL ONE (12:55)
[2022-12-16] MEDS: LACTATED RINGER'S 1,000 ML IV SCH (13:00)
[2022-12-16] MEDS ORDERED: LIDOCAINE 1% LOCAL 20 ML VIAL ONE (13:28)
--- NOTE | 2022-12-16 13:31 | History & Physical Bridge Note ---
Date of Service December 16, 2022 History & Physical Bridge Note I have examined the patient, reviewed the History & Physical and in the interval since the performance of the History & Physical I have noted the following changes of clinical significance: no changes noted. I reviewed the indications, procedure, risks and alternatives of Micra leadless pacemaker implantation with the patient, and answered all questions. Patient understands and agrees to the procedure. Consent obtained. I also reviewed the risks and use of sedation, patient understands and consent obtained.
--- NOTE | 2022-12-16 13:31 | Pre Anesthesia Assessment ---
Date of Service December 16, 2022 Pre Sedation Assessment Vital Signs Temp Pulse Pulse Resp BP BP Pulse Ox 12/16/22 13:12 60 20 103/60 95 12/16/22 08:00 12/16/22 08:00 61 12/16/22 08:00 36.4 C L 67 18 125/75 97 12/16/22 03:44 94 12/16/22 03:38 36.5 C 59 L 18 134/66 91 12/15/22 23:36 66 12/15/22 22:48 12/15/22 22:33 36.4 C L 61 20 113/65 92 12/15/22 19:25 36.4 C L 58 L 18 105/68 95 12/15/22 15:59 36.4 C L 56 L 18 103/62 96 O2 Del Method O2 Flow Rate 12/16/22 13:12 Room Air 12/16/22 08:00 Room Air 12/16/22 08:00 12/16/22 08:00 Room Air 12/16/22 03:44 Nasal Cannula 2.0 12/16/22 03:38 Room Air 12/15/22 23:36 12/15/22 22:48 Room Air 12/15/22 22:33 Room Air 12/15/22 19:25 Room Air 12/15/22 15:59 Room Air Cardiovascular + regular rate + murmur (Grade 2/6 crescendo decrescendo) Respiratory normal respiratory effort, lungs clear to auscultation Pre-Sedation Airway Assessment Smoking Status: Never smoker Hx Sleep Apnea: No Hx Difficult Intubation: No Short, Thick Neck: No Thyromental Distance: > or= 3.5 Finger Breadths Oral Cavity: + WNL Mallampati Class: III ASA: ASA3 NPO Status Date of Last Intake of Fluids: 12/16/22 Time of Last Intake of Fluids: 09:00 Date of Last Intake of Solid Food: 12/15/22 Time of Last Intake of Solid Foods: 18:00 Procedure Planning Contraindications for Sedation: none Current Medications Reviewed: Yes Notes The planned sedation has been discussed with the patient. Informed Consent was obtained. I have identified the patient, determined the appropriateness of sedation and have assessed the patient immediately prior to the procedure. All medicine(s) and interventions are by my order.
--- NOTE | 2022-12-16 13:41 | Hospitalist Progress Note ---
Date of Service December 16, 2022 Assessment & Plan (1) Near syncope: (2) Fall: (3) Contusion of left shoulder: (4) JAVI (acute kidney injury): Plan Patient is a 72 yr female with H/O chronic diastolic CHF, pulm hypertension, renal disease, COPD, LARRY, hyperlipidemia, chronic pancreatitis, hyperparathyroidism, hypothyroidism, GERD, history of nephrolithiasis, RLS, enclosing spondylitis depression with anxiety who presents to ED secondary to syncope x2 prior to arrival. Fall, syncope Sick sinus syndrome --CT Head:No acute intracranial abnormality. --CT Neck:No acute cervical spine fracture or subluxation. --Carotid Doppler:There is no sonographic evidence of hemodynamically significant stenosis in the right or left carotid arterial system. Antegrade flow is shown in the vertebral arteries. -- Orthostatics negative in ED --ECHO: No significant change from prior study. Appreciate cardiology input Will need leadless pacemaker placement Fall precautions PT OT as able Planned for pacemaker placement today Cardiology following Chronic diastolic heart failure Patient follows Dr. Otoole as outpatient Monitor volume status, renal function Initially torsemide held due to JAVI Restarted torsemide 40 mg daily>> increased to 40 mg twice daily Right Wrist Pain H/O Fall Wrist X ray: No acute fracture or dislocation. Received prednisone for 3 days Wrist pain resolved Acute Bronchitis Intolerance to multiple antibiotics Continue Augmentin Monitor Recent H/O Complicated ESBL UTI Completed IV ertapenem course Blood Cx:Negative to date Urine Culture: Negative JAVI on CKD III Baseline Cr ~ 1.4-1.5 Received gentle IVF Avoid nephrotoxic agents Follows with [facility] [place] Nephrology Monitor renal function Cr 1.5 today Right rotator cuff tear Left shoulder contusion Not a good surgical candidate as per orthopedics Conservative management Follow-up with orthopedics as needed Peripheral neuropathy Lamictal recently added by neurology Continue pregabalin and duloxetine Hypokalemia Replete electrolytes as needed Monitor COPD LARRY- noncompliant with cpap stable DVT Px: Lovenox SQ Code Status Full code Disposition PT OT prior to discharge Admission and Anticipated Discharge Date Admission Date: December 08, 2022 Subjective Patient is seen and examined at bedside Feels tired Less cough, dyspnea today Reports chronic back pain No dizziness today Planned for pacemaker placement today Denies chest pain, nausea, vomiting, abd pain Review of Systems Review of Systems: All systems reviewed & are unremarkable except as noted in Subjective Physical Exam Physical Exam: Physical Exam: Vitals signs as noted above General Appearance:Moderately built and nourished, no apparent distress Head: normocephalic, Atraumatic Eyes: normal inspection, EOMI Neck: supple, Trachea midline Respiratory/Chest: Normal breath sounds, +B/L Crackles, R port, No accessory muscle use Cardiovascular: S1, S2, +murmur Abdomen/GI:Soft, Non tender, + abdominal hernia, bowel sounds present Extremities/Musculoskeletal:normal inspection, no edema, left shoulder bruising Neurologic/Psych:AAOX3, grossly no focal neurological deficits Skin: normal color, warm Results & Data Results & Data ([facility]) Vital Signs (Past 12 Hours) Vital Signs Temp Pulse Pulse Resp BP BP Pulse Ox 12/16/22 13:12 60 20 103/60 95 12/16/22 08:00 12/16/22 08:00 61 12/16/22 08:00 36.4 C L 67 18 125/75 97 12/16/22 03:44 94 12/16/22 03:38 36.5 C 59 L 18 134/66 91 O2 Del Method O2 Flow Rate 12/16/22 13:12 Room Air 12/16/22 08:00 Room Air 12/16/22 08:00 12/16/22 08:00 Room Air 12/16/22 03:44 Nasal Cannula 2.0 12/16/22 03:38 Room Air Laboratory Results [facility] 12/15/22 12/16/22 16:31 05:32 Sodium 136 141 Potassium 3.2 L 3.4 L Chloride 97 L 99 Carbon Dioxide 34 H 33 H BUN 60 H 63 H Creatinine 2.04 H D 1.50 H D Glucose 136 H 96 Calcium 9.8 9.5 Liver Function 12/15/22 Range/Units 16:31 Albumin 3.6 (3.4-5.0) gm/dl (3) Contusion of left shoulder Encounter type: initial encounter Qualified Code(s): S40.012A - Contusion of left shoulder, initial encounter
[2022-12-16] MEDS ORDERED: HEPARIN (PORCINE) 1000 UNIT/ML 10 ML (CATH LAB USE ONLY) ONE (13:48)
--- NOTE | 2022-12-16 15:39 | Electrophysiology Report ---
Date of Service December 16, 2022 Electrophysiology Procedure Electrophysiology Procedure Report Preoperative diagnosis: Sinus node dysfunction with presyncope and falls No access in right or left subclavian area Postoperative diagnosis: Same Procedure: Micra leadless pacemaker implantation Surgeon: Srikanth Wagner MD Anesthesia: Local with sedation Estimated blood loss: 20 cc Complications: None Specimens: None Disposition: Relief Mate recovery: Procedure details: After obtaining informed consent for the procedure, the patient was brought to the laboratory and prepped and draped in the standard sterile manner. The right groin was anesthetized with 1% lidocaine local anes thetic and venipuncture was performed by percutaneous technique and a guidewire placed through the right femoral vein into the superior vena cava. Sequential dilators were used to dilate the femoral vein insertion site. A Micra sheath was placed over the guidewire and advanced to the right atrium. The Micra positioning sheath and pacemaker were advanced into the right atrium and then into the right ventricle. The tip of the pacemaker was positioned against the intraventricular septum and position was documented with dye injection. The pacemaker was then deployed, tested for sensing and capture and tested for fixation. Once in place the tether was removed followed by positioning system. Final pacing and sensing characteristics are noted on the data sheet. The sheath was then removed through a [id number] suture at the right groin and hemostasis obtained by firm pressure and the suture at the site and a dressing applied. [facility] Electrophysiology codes Indication for Procedure (1) Sinus node dysfunction: Pacing Procedure 1: Pacin Transcath insert/replace perm leadless pacemaker PG Moderate Sedation Codes Moderate Sedation Codes Procedure 1: Sedation/Anesthesia: 84859 Mod Sedation by the same physician;Init15 Min Child Age 5 & Up Procedure 2: Sedation/Anesthesia: 64250 Mod Sedation by the same physician; Ea [id number] Minutes
[2022-12-16] MEDS: oxyCODONE/ACETAMINOPHEN 5mg/325mg TAB PO PRN ×2 (16:27→22:58)
[2022-12-16] MEDS: DULoxetine HCL 20 MG CAP PO SCH (21:21)
[2022-12-16] MEDS: MONTELUKAST SODIUM 10 MG TABLET PO SCH (21:21)
[2022-12-16] MEDS: risperiDONE 2 MG TABLET PO SCH (21:22)
[2022-12-16] MEDS: ACETAMINOPHEN 325 MG TAB PO PRN (21:23)
[2022-12-16] MEDS: rOPINIRole HCL 0.25 MG TABLET PO SCH (21:23)
[2022-12-17] MEDS: ACETAMINOPHEN 325 MG TAB PO PRN (04:04)
[2022-12-17] MEDS: oxyCODONE/ACETAMINOPHEN 5mg/325mg TAB PO PRN ×2 (05:39→12:29)
[2022-12-17] MEDS: LEVOTHYROXINE SODIUM 88 MCG TABLET PO SCH (05:39)
--- NOTE | 2022-12-17 06:11 | Electrocardiogram Report ---
Test Reason : Blood Pressure : / mmHG Vent. Rate : 060 BPM Atrial Rate : 060 BPM P-R Int : 216 ms QRS Dur : 112 ms QT Int : 460 ms P-R-T Axes : 048 -28 007 degrees QTc Int : 460 ms Sinus rhythm with 1st degree A-V block Left ventricular hypertrophy with repolarization abnormality Abnormal ECG When compared with ECG of 08-DEC-2022 14:10, Sinus rhythm has replaced Junctional rhythm QT has lengthened Confirmed by Nicho Lombardi ([id number]) on 12/17/2022 6:11:20 AM Referred By: NO PCP Confirmed By:Nicho Lombardi
[2022-12-17 06:34] LABS: Hematocrit (blood only) 34.8 % (37.0-47.0); Hemoglobin 11.6 g/dl (12.0-16.0); Mean Corpuscular Hemoglobin 29.4 pg (25.0-34.0); Mean Corpuscular Hgb Conc 33.3 g/dL (32.0-36.0); Mean Corpuscular Volume 88.3 fL (80.0-100.0); Mean Platelet Volume 11.6 fL (9.4-12.4); Platelet Count 200 K/uL (130-400); RDW Coefficient of Variation 13.8 % (11.5-14.5); RDW Standard Deviation 44.5 fL (36.4-46.3); Red Blood Count 3.94 M/uL (4.20-5.40); White Blood Count 9.58 K/ul (4.8-10.8)
[2022-12-17 06:56] LABS: BUN Creatinine Ratio 47.5 (10-20); Calcium 9.1 mg/dl (8.5-10.1); Creatinine Clr Calc Pharmacy 41.3 ml/min; Est GFR (Non-African American) 44.8 ml/min; Magnesium 1.7 mg/dl (1.7-2.4); Potassium 3.7 mmol/L (3.5-5.1)
--- NOTE | 2022-12-17 07:42 | Hospitalist Progress Note ---
Date of Service December 17, 2022 Assessment & Plan (1) Near syncope: (2) Fall: (3) Contusion of left shoulder: (4) JAVI (acute kidney injury): Plan 72 yo F with chronic diastolic CHF, pulm hypertension, interstitia; lung disease, renal disease, COPD, LARRY, hyperlipidemia, chronic pancreatitis, hyperparathyroidism, hypothyroidism, GERD, history of nephrolithiasis, RLS, enclosing spondylitis depression with anxiety who presents to ED secondary to syncope x2 prior to arrival. Fall, syncope Sick sinus syndrome --CT Head:No acute intracranial abnormality. --CT Neck:No acute cervical spine fracture or subluxation. --Carotid Doppler:There is no sonographic evidence of hemodynamically significant stenosis in the right or left carotid arterial system. Antegrade flow is shown in the vertebral arteries. -- Orthostatics negative in ED --ECHO: No significant change from prior study. Appreciate cardiology input S/p leadless pacemaker placement on 12/16/2022 , tolerated procedure well Fall precautions PT OT as able Cardiology following Chronic diastolic heart failure Patient follows Dr. Otoole as outpatient Monitor volume status, renal function Initially torsemide held due to JAVI Restarted torsemide 40 mg daily>> increased to 40 mg twice daily JAVI on CKD III Baseline Cr ~ 1.4-1.5 Received gentle IVF Avoid nephrotoxic agents Follows with [facility] Monitor renal function Cr 1.22 today Acute Bronchitis Intolerance to multiple antibiotics Continue Augmentin Monitor Recent H/O Complicated ESBL UTI Completed IV ertapenem course Blood Cx:Negative to date Urine Culture: Negative Right Wrist Pain H/O Fall Wrist X ray: No acute fracture or dislocation. Received prednisone for 3 days Wrist pain resolved Right rotator cuff tear Left shoulder contusion (after recent fall) Not a good surgical candidate as per orthopedics Conservative management Follow-up with orthopedics as needed Peripheral neuropathy Lamictal recently added by neurology Continue pregabalin and duloxetine Hypokalemia Replete electrolytes as needed Monitor COPD LARRY- noncompliant with cpap stable DVT Px: Lovenox SQ Code Status :Full code Disposition: PT OT prior to discharge, plan to DC to [facility] Admission and Anticipated Discharge Date Admission Date: December 08, 2022 Subjective Patient seen in follow up of syncope, bradycardia. now s/p leadless pacer placement yesterday Currently laying in bed, in no acute distress, feeling tired No fevers chills chest pain palpitations, no shortness of breath Reports chronic back pain Denies abd. pain. Review of Systems Review of Systems: All systems reviewed & are unremarkable except as noted in Subjective Physical Exam Physical Exam: Constitutional: elderly obese F laying in bed in NAD Head: Normocephalic, Atraumatic Eyes: PERRL, conjunctivae normal, anicteric sclerae ENMT: external ear and nose normal, oropharynx normal Neck: normal visual inspection Respiratory: +rhonchi (velcro like sounds - seem chronic per pulmonary outpt note). Cardiovascular: RRR, 2/6 pati, b/l +1 edema, no pain to palp no edema Chest: right upper chest - port a cath Abdomen: normal bowel sounds, soft, obese, nontender Musculoskeletal:+ L shoulder ecchymosis : Cam cath draining yellow urine Skin: no rashes, warm and dry normal turgor Neurologic: PERRL, EOMI, no face palsy, speech fluent, moves all extremities Psychiatric: A+Ox3, euthymic affect Results & Data Results & Data ([facility]) Vital Signs (Past 12 Hours) Vital Signs Temp Pulse Pulse Resp BP BP Pulse Ox 12/17/22 07:29 36.6 C 63 18 106/59 L 95 12/17/22 02:34 36.7 C 64 19 114/56 L 92 12/16/22 22:03 60 12/16/22 21:15 12/16/22 22:00 36.3 C L 60 19 104/54 L 95 O2 Del Method 12/17/22 07:29 Room Air 12/17/22 02:34 Room Air 12/16/22 22:03 12/16/22 21:15 Room Air 12/16/22 22:00 Room Air Laboratory Results 12/17/22 12/17/22 Range/Units 05:29 05:29 WBC 9.58 (4.8-10.8) K/ul RBC 3.94 L (4.20-5.40) M/uL Hgb 11.6 L (12.0-16.0) g/dl Hct 34.8 L (37.0-47.0) % MCV 88.3 (80.0-100.0) fL MCH 29.4 (25.0-34.0) pg MCHC 33.3 (32.0-36.0) g/dL RDW Std Deviation 44.5 (36.4-46.3) fL RDW Coeff of David 13.8 (11.5-14.5) % Plt Count 200 (130-400) K/uL MPV 11.6 (9.4-12.4) fL Sodium 141 (136-145) mmol/L Potassium 3.7 (3.5-5.1) mmol/L Chloride 100 (98-107) mmol/L Carbon Dioxide 34 H (21-32) mmol/L Anion Gap 7 (3-11) BUN 58 H (6-23) mg/dl Creatinine 1.22 H (0.6-1.2) mg/dl Est Cr Clr Drug Dosing 41.3 ml/min Est GFR ( Amer) 52.0 ml/min Est GFR (Non-Af Amer) 44.8 ml/min BUN/Creatinine Ratio 47.5 H (10-20) Glucose 94 (70-99(Fasting)) mg/dl Calcium 9.1 (8.5-10.1) mg/dl Magnesium 1.7 (1.7-2.4) mg/dl Medications Administered Current Inpatient Medications Acetaminophen (Acetaminophen 325 Mg Tab) 650 mg PO Q4H PRN PRN Reason: Pain or Fever Stop: 01/06/23 20:21 Last Admin: 12/17/22 04:04 Dose: 650 mg Albuterol (Albuterol Hfa 8 Gm Inhaler) 2 puffs INH Q6H PRN PRN Reason: Shortness Of Breath Or Wheezing Stop: 01/06/23 20:38 Albuterol (Albut/Ipratrop 3mg/0.5mg Neb 3 Ml Vial) 3 ml INH Q4H PRN; Protocol PRN Reason: Shortness Of Breath Or Wheezing Stop: 01/06/23 20:21 Amoxicillin/Clavulanate Potassium (Amoxicillin/Clavulanate 250 Mg Tab) 1 tab PO BIDM [facility] Stop: 12/19/22 09:59 Last Admin: 12/16/22 16:25 Dose: 1 tab Calcitriol (Calcitriol 0.25 Mcg Capsule) 0.5 mcg PO BID CATE Stop: 01/06/23 20:59 Last Admin: 12/16/22 21:20 Dose: 0.5 mcg Calcium Carbonate (Calcium Carbonate 1250mg Tab) 1,250 mg PO TID CATE Stop: 01/06/23 20:59 Last Admin: 12/16/22 21:20 Dose: 1,250 mg Cyanocobalamin (Cyanocobalamin (B-12) 500 Mcg Tablet) 1,000 mcg PO QAM CATE Stop: 01/07/23 08:59 Last Admin: 12/16/22 07:47 Dose: 1,000 mcg Desipramine HCl (Desipramine Hcl 50 Mg Tab) 50 mg PO BID CATE Stop: 01/06/23 20:59 Last Admin: 12/16/22 21:20 Dose: 50 mg Duloxetine HCl (Duloxetine Hcl 20 Mg Cap) 20 mg PO HS CATE Stop: 01/06/23 20:59 Last Admin: 12/16/22 21:21 Dose: 20 mg Enoxaparin Sodium (Enoxaparin Inj 40 Mg/0.4 Ml Syr) 40 mg SQ HS CATE Stop: 01/06/23 20:59 Last Admin: 12/14/22 20:33 Dose: 40 mg Escitalopram Oxalate (Escitalopram Oxalate 20 Mg Tab) 20 mg PO QAM CATE Stop: 01/07/23 08:59 Last Admin: 12/16/22 07:47 Dose: 20 mg Fluticasone Furoate (Fluticasone Furoate 100mcg 14 Puffs/Inhaler) 1 puffs INH DAILY CATE Stop: 01/07/23 08:59 Last Admin: 12/16/22 07:47 Dose: 1 puffs Heparin Sodium (Porcine) (Heparin 100 Unit/Ml 5ml Flush 5 Ml Syr) 5 ml IV PRN PRN PRN Reason: Flush Stop: 01/07/23 06:44 Last Admin: 12/14/22 10:51 Dose: 5 ml Lactated Ringer's (Lr) 1,000 mls @ 15 mls/hr IV .Q24H CATE Stop: 12/19/22 02:39 Last Admin: 12/16/22 13:00 Dose: Not Given Lactobacillus Acidophilus (Advanced Probiotic 1250 Mg Capsule) 2 cap PO DAILY CATE Stop: 01/07/23 15:29 Last Admin: 12/16/22 07:49 Dose: 2 cap Lamotrigine (Lamotrigine 25 Mg Tab) 25 mg PO BID CATE Stop: 01/06/23 20:59 Last Admin: 12/16/22 21:21 Dose: 25 mg Levothyroxine Sodium (Levothyroxine Sodium 88 Mcg Tablet) 88 mcg PO DAILYBB [facility] Stop: 01/09/23 06:29 Last Admin: 12/17/22 05:39 Dose: 88 mcg Lidocaine (Lidocaine 5% 1 Patch) 1 patch TD QAM [facility] Stop: 01/07/23 15:29 Last Admin: 12/16/22 07:49 Dose: 1 patch Magnesium Hydroxide (Magnesium Hydroxide Susp 30 Ml Udc) 30 ml PO Q12H PRN PRN Reason: Constipation Stop: 01/06/23 20:21 Miscellaneous (Remove Lidoderm Patch) 1 each N/A DAILY@2100 [facility] Stop: 01/07/23 22:59 Last Admin: 12/16/22 21:22 Dose: 1 each Montelukast Sodium (Montelukast Sodium 10 Mg Tablet) 10 mg PO HS [facility] Stop: 01/06/23 20:59 Last Admin: 12/16/22 21:21 Dose: 10 mg Multivitamins/Minerals (Cerovite Adv Formula Tab) 1 tab PO DAILY CATE Stop: 01/07/23 08:59 Last Admin: 12/16/22 07:47 Dose: 1 tab Ondansetron HCl (Ondansetron Inj 2 Mg/Ml 2 Ml Vial) 4 mg IV Q6H PRN PRN Reason: Nausea Stop: 01/06/23 20:21 Oxycodone/Acetaminophen (Oxycodone/Acetaminophen 5mg/325mg Tab) 1 tab PO Q6H PRN PRN Reason: mod-severe pain 5,6,7, 8,9,10 Stop: 12/21/22 20:21 Last Admin: 12/17/22 05:39 Dose: 1 tab Pantoprazole Sodium (Pantoprazole 40 Mg Tab) 40 mg PO BID CATE Stop: 01/06/23 20:59 Last Admin: 12/16/22 22:58 Dose: 40 mg Polyethylene Glycol (Polyethylene (Miralax) 17 Gm Pack) 17 gm PO DAILY PRN PRN Reason: Constipation Stop: 01/06/23 20:21 Potassium Chloride (Potassium Chloride Crtab 20 Meq Tabcr) 40 meq PO BID CATE Stop: 01/14/23 20:59 Last Admin: 12/16/22 21:21 Dose: 40 meq Pregabalin (Pregabalin 100 Mg Cap) 100 mg PO TID CATE Stop: 01/06/23 20:59 Last Admin: 12/16/22 21:22 Dose: 100 mg Risperidone (Risperidone 2 Mg Tablet) 2 mg PO HS CATE Stop: 01/06/23 20:59 Last Admin: 12/16/22 21:22 Dose: 2 mg Ropinirole HCl (Ropinirole Hcl 0.25 Mg Tablet) 0.5 mg PO HS CATE Stop: 01/06/23 20:59 Last Admin: 12/16/22 21:23 Dose: 0.5 mg Rosuvastatin Calcium (Rosuvastatin Calcium 10 Mg Tab) 10 mg PO DAILY CATE Stop: 01/07/23 08:59 Last Admin: 12/16/22 07:47 Dose: 10 mg Tamsulosin HCl (Tamsulosin Hcl 0.4 Mg Cap) 0.4 mg PO DAILY CATE Stop: 01/07/23 08:59 Last Admin: 12/16/22 07:46 Dose: 0.4 mg Torsemide (Torsemide 10 Mg Tab) 40 mg PO BID17 CATE Stop: 01/14/23 16:59 Last Admin: 12/16/22 16:25 Dose: 40 mg Umeclidinium/Vilanterol (Umeclidinium/Vilanterol 62.5/25mcg 7 Puffs/Inhaler) 1 puffs INH DAILY CATE Stop: 01/07/23 08:59 Last Admin: 12/16/22 07:46 Dose: 1 puffs Valacyclovir HCl (Valacyclovir Hcl 500 Mg Tablet) 500 mg PO DAILY CATE Stop: 01/07/23 08:59 Last Admin: 12/16/22 07:47 Dose: 500 mg Vitamin D (Cholecalciferol 1,000 Units 25 Mcg Tab) 2,000 units PO DAILY CATE Stop: 01/07/23 08:59 Last Admin: 12/16/22 07:47 Dose: 2,000 units (3) Contusion of left shoulder Encounter type: initial encounter Qualified Code(s): S40.012A - Contusion of left shoulder, initial encounter
[2022-12-17] MEDS: LACTATED RINGER'S 1,000 ML IV SCH (08:32)
[2022-12-17] MEDS: ESCITALOPRAM OXALATE 20 MG TAB PO SCH (08:46)
[2022-12-17] MEDS: valACYclovir HCL 500 MG TABLET PO SCH (08:46)
[2022-12-17] MEDS: ADVANCED PROBIOTIC 1250 MG CAPSULE PO SCH (08:46)
[2022-12-17] MEDS: TORSEMIDE 10 MG TAB PO SCH ×2 (08:46→16:32)
[2022-12-17] MEDS: CALCITRIOL 0.25 MCG CAPSULE PO SCH ×2 (08:46→21:24)
[2022-12-17] MEDS: FLUTICASONE FUROATE 100MCG 14 PUFFS/INHALER INH SCH (08:46)
[2022-12-17] MEDS: CHOLECALCIFEROL 1,000 UNITS 25 MCG TAB PO SCH (08:46)
[2022-12-17] MEDS: CALCIUM CARBONATE 1250MG TAB PO SCH ×3 (08:46→21:24)
[2022-12-17] MEDS: DESIPRAMINE HCL 50 MG TAB PO SCH ×2 (08:46→21:26)
[2022-12-17] MEDS: PREGABALIN 100 MG CAP PO SCH ×3 (08:46→21:22)
[2022-12-17] MEDS: lamoTRIgine 25 MG TAB PO SCH ×2 (08:46→21:26)
[2022-12-17] MEDS: CYANOCOBALAMIN (B-12) 500 MCG TABLET PO SCH (08:46)
[2022-12-17] MEDS: AMOXICILLIN/CLAVULANATE 250 MG TAB PO SCH ×2 (08:46→16:33)
[2022-12-17] MEDS: TAMSULOSIN HCL 0.4 MG CAP PO SCH (08:46)
[2022-12-17] MEDS: LIDOCAINE 5% 1 PATCH TD SCH (08:47)
[2022-12-17] MEDS: POTASSIUM CHLORIDE CRTAB 20 MEQ TABCR PO SCH ×2 (08:47→21:25)
[2022-12-17] MEDS: CEROVITE ADV FORMULA TAB PO SCH (08:47)
[2022-12-17] MEDS: ROSUVASTATIN CALCIUM 10 MG TAB PO SCH (08:47)
[2022-12-17] MEDS: PANTOprazole 40 MG TAB PO SCH ×2 (08:48→21:23)
[2022-12-17] MEDS: UMECLIDINIUM/VILANTEROL 62.5/25MCG 7 PUFFS/INHALER INH SCH (08:48)
--- NOTE | 2022-12-17 09:44 | XRay Report ---
XR chest 2V PA/lateral HISTORY: EXACT TIME ORDERED Evaluate for pacer position COMPARISON: Chest 12/12/2022. FINDINGS: No pneumothorax. No pleural effusions. A right Port-A-Cath terminates in the SVC. Small steve ctronic device overlying the left heart which is new from the prior study. Surgical clips and suture material seen within the upper abdomen. Old, healed left-sided rib fractures are noted. Mild intersti tial thickening and dependent changes again noted at the lung bases. No evidence for pulmonary edema. The heart remains mildly enlarged. IMPRESSION: Interval placement of a small electronic device overlying the left heart. No pneumothorax. ACT 112: Negative or not required by law. Electronically signed by: Noel Crenshaw M.D. 12/17/2022 9:41 AM
--- NOTE | 2022-12-17 10:23 | Nephrology Progress Note ---
Date of Service December 17, 2022 Assessment & Plan (1) JAVI (acute kidney injury): Plan: Non-oliguric. Creatinine stable at 1.2-1.5 mg/dL. Electrolytes acceptable. KCl 40 mEq BID. Medications appropriately dosed for kidney function. Torsemide 40 mg BID provided. Volume status acceptable. Document I/O's. Repeat metabolic profile tomorrow AM. (2) Near syncope: Plan: History of junctional bradycardia. POD#1 s/p pacer. (3) Ureterolithiasis: Plan: Outpatient follow up with Dr. Roberts at discharge. Remains on calcitriol per home Rx. (4) Acute on chronic diastolic CHF (congestive heart failure): Plan: Torsemide 40 mg BID. Close outpatient follow up at discharge. Admission and Anticipated Discharge Date Admission Date: December 08, 2022 Subjective No acute events overnight. Out of bed to bathroom this morning. Denies any complaints. Review of Systems Review of Systems: All systems reviewed & are unremarkable except as noted in HPI & below Physical Exam Constitutional: well developed; no acute distress and not ill appearing Eyes: + anicteric sclerae; pupils not irregular ENMT: Ears: + hearing impairment Mouth: oral mucous membranes not dry Neck: normal visual inspection Respiratory: normal respiratory effort Auscultation: lungs clear to auscultation bilaterally and + rales Cardiovascular: Rate/Rhythm: regular rate, regular rhythm and + bradycardic Heart Sounds: normal S1, normal S2 and + murmur Extremities: no edema Musculoskeletal: Extremities: no cyanosis and no clubbing Skin: + turgor decreased; no rashes and no jaundice Neurologic: Motor/Sensory: no tremor and no asterixis Psychiatric: Orientation: alert and oriented x 3 Results & Data ([facility]) Vital Signs (Past 12 Hours) Vital Signs Temp Pulse Resp BP Pulse Ox O2 Del Method 12/17/22 07:29 36.6 C 63 18 106/59 L 95 Room Air 12/17/22 02:34 36.7 C 64 19 114/56 L 92 Room Air Laboratory Results Laboratory Results - last 24 hr 12/17/22 12/17/22 05:29 05:29 WBC 9.58 RBC 3.94 L Hgb 11.6 L Hct 34.8 L MCV 88.3 MCH 29.4 MCHC 33.3 RDW Std Deviation 44.5 RDW Coeff of David 13.8 Plt Count 200 MPV 11.6 Sodium 141 Potassium 3.7 Chloride 100 Carbon Dioxide 34 H Anion Gap 7 BUN 58 H Creatinine 1.22 H Est Cr Clr Drug Dosing 41.3 Est GFR ( Amer) 52.0 Est GFR (Non-Af Amer) 44.8 BUN/Creatinine Ratio 47.5 H Glucose 94 Calcium 9.1 Magnesium 1.7 PG Care Time/CCT Total # of Minutes Spent Total Time Spent with Patient: Total time spent is greater than 50% in coordination of care (as documented) at patient's floor/unit and/or counseling patient: Coding Level of Care Code 40572 SUB INP/OBS CARE 3/50MIN Diagnoses JAVI (acute kidney injury) N17.9 Near syncope R55 Ureterolithiasis N20.1 Acute on chronic diastolic CHF (congestive heart failure) I50.33
--- NOTE | 2022-12-17 11:44 | Cardiology Progress Note ---
Date of Service December 17, 2022 Assessment & Plan (1) Status post placement of cardiac pacemaker: Plan 1: Pacemaker: Postop day #1, she is doing very well, the groin site looks good, the chest x-ray looks good and the device is working very well. From my standpoint she can go home at any time. I will arrange office follow-up. Admission and Anticipated Discharge Date Admission Date: December 08, 2022 Subjective She is feeling well today, no groin or chest discomfort. Physical Exam Physical Exam: Her groin site is clean and dry, suture removed. Dressing remains in place. Cardiac rhythm is regular with no rubs Lungs are clear Results & Data Vital Signs (Past 12 Hours) Vital Signs Temp Pulse Resp BP BP Pulse Ox O2 Del Method 12/17/22 11:28 36.5 C 61 16 100/66 95 Room Air 12/17/22 10:41 Room Air 12/17/22 07:29 36.6 C 63 18 106/59 L 95 Room Air 12/17/22 02:34 36.7 C 64 19 114/56 L 92 Room Air Laboratory Results CBC 12/17/22 Range/Units 05:29 WBC 9.58 (4.8-10.8) K/ul RBC 3.94 L (4.20-5.40) M/uL Hgb 11.6 L (12.0-16.0) g/dl Hct 34.8 L (37.0-47.0) % Plt Count 200 (130-400) K/uL Comprehensive Metabolic Panel 12/17/22 Range/Units 05:29 Sodium 141 (136-145) mmol/L Potassium 3.7 (3.5-5.1) mmol/L Chloride 100 (98-107) mmol/L Carbon Dioxide 34 H (21-32) mmol/L BUN 58 H (6-23) mg/dl Creatinine 1.22 H (0.6-1.2) mg/dl Glucose 94 (70-99(Fasting)) mg/dl Calcium 9.1 (8.5-10.1) mg/dl Intake and Output 12/16/22 12/17/22 12/17/22 22:59 06:59 14:59 Intake Total 570 / 570 Output Total 1300 / 3100 Balance -730 / -2530 - Intake: IV 270 / 270 Vancomycin HCl 1 gm In 270 ml @ 270 / 270 200 mls/hr IV PREOP CATE Rx#: [id number] Oral 300 / 300 Output: Urine Amount (Catheter) 1300 / 3100 Cam/Indwelling 1300 / 3100 # Bowel Movements Other: Weight 80.8 kg Diagnostic Findings Postop ECG: Sinus rhythm with intact AV conduction, appropriate pacemaker suppression Telemetry: Sinus rhythm, very rare ventricular pacing appropriately Chest x-ray: Appropriate pacemaker location although more apical than desirable but that was no implant Pacemaker evaluation: Excellent pacing and sensing characteristics PG Care Time/CCT Total # of Minutes Spent Total Time Spent with Patient: Total time spent is greater than 50% in coordination of care (as documented) at patient's floor/unit and/or counseling patient: Coding Level of Care Code 14002 Post Operative Follow-Up Diagnoses Status post placement of cardiac pacemaker Z95.0 CPT Codes Dual Lead Pacemaker System - 30076 ([id number])
[2022-12-17] MEDS: rOPINIRole HCL 0.25 MG TABLET PO SCH (21:24)
[2022-12-17] MEDS: MONTELUKAST SODIUM 10 MG TABLET PO SCH (21:25)
[2022-12-17] MEDS: risperiDONE 2 MG TABLET PO SCH (21:25)
[2022-12-17] MEDS: DULoxetine HCL 20 MG CAP PO SCH (21:26)
[2022-12-18] MEDS: LEVOTHYROXINE SODIUM 88 MCG TABLET PO SCH (06:12)
[2022-12-18] MEDS: CALCITRIOL 0.25 MCG CAPSULE PO SCH (08:17)
[2022-12-18] MEDS: AMOXICILLIN/CLAVULANATE 250 MG TAB PO SCH (08:17)
[2022-12-18] MEDS: LACTATED RINGER'S 1,000 ML IV SCH (08:17)
[2022-12-18] MEDS: lamoTRIgine 25 MG TAB PO SCH (08:18)
[2022-12-18] MEDS: valACYclovir HCL 500 MG TABLET PO SCH (08:18)
[2022-12-18] MEDS: DESIPRAMINE HCL 50 MG TAB PO SCH (08:18)
[2022-12-18] MEDS: TAMSULOSIN HCL 0.4 MG CAP PO SCH (08:18)
[2022-12-18] MEDS: ESCITALOPRAM OXALATE 20 MG TAB PO SCH (08:18)
[2022-12-18] MEDS: ROSUVASTATIN CALCIUM 10 MG TAB PO SCH (08:18)
[2022-12-18] MEDS: PREGABALIN 100 MG CAP PO SCH ×2 (08:18→13:45)
[2022-12-18] MEDS: CEROVITE ADV FORMULA TAB PO SCH (08:18)
[2022-12-18] MEDS: POTASSIUM CHLORIDE CRTAB 20 MEQ TABCR PO SCH (08:18)
[2022-12-18] MEDS: PANTOprazole 40 MG TAB PO SCH (08:18)
[2022-12-18] MEDS: CHOLECALCIFEROL 1,000 UNITS 25 MCG TAB PO SCH (08:18)
[2022-12-18] MEDS: CYANOCOBALAMIN (B-12) 500 MCG TABLET PO SCH (08:18)
[2022-12-18] MEDS: TORSEMIDE 10 MG TAB PO SCH (08:18)
[2022-12-18] MEDS: ADVANCED PROBIOTIC 1250 MG CAPSULE PO SCH (08:18)
[2022-12-18] MEDS: LIDOCAINE 5% 1 PATCH TD SCH (08:19)
[2022-12-18] MEDS: FLUTICASONE FUROATE 100MCG 14 PUFFS/INHALER INH SCH (08:19)
[2022-12-18] MEDS: UMECLIDINIUM/VILANTEROL 62.5/25MCG 7 PUFFS/INHALER INH SCH (08:19)
[2022-12-18] MEDS: CALCIUM CARBONATE 1250MG TAB PO SCH ×2 (08:19→13:45)
[2022-12-18] MEDS: oxyCODONE/ACETAMINOPHEN 5mg/325mg TAB PO PRN (08:19)
[2022-12-18 08:25] LABS: Hematocrit (blood only) 34.9 % (37.0-47.0); Hemoglobin 11.3 g/dl (12.0-16.0); Mean Corpuscular Hemoglobin 29.4 pg (25.0-34.0); Mean Corpuscular Hgb Conc 32.4 g/dL (32.0-36.0); Mean Corpuscular Volume 90.9 fL (80.0-100.0); Mean Platelet Volume 10.9 fL (9.4-12.4); Platelet Count 191 K/uL (130-400); RDW Standard Deviation 45.9 fL (36.4-46.3); Red Blood Count 3.84 M/uL (4.20-5.40); White Blood Count 10.38 K/ul (4.8-10.8)
[2022-12-18 08:40] LABS: BUN Creatinine Ratio 38.7 (10-20); Creatinine Clr Calc Pharmacy 35.1 ml/min; Est GFR (African American) 43.3 ml/min; Est GFR (Non-African American) 37.3 ml/min; Magnesium 1.7 mg/dl (1.7-2.4); Phosphorus 3.6 mg/dl (2.5-4.9); Potassium 4.2 mmol/L (3.5-5.1)
--- NOTE | 2022-12-18 08:46 | Hospitalist Progress Note ---
Date of Service December 18, 2022 Assessment & Plan (1) Near syncope: (2) Fall: (3) Contusion of left shoulder: (4) JAVI (acute kidney injury): Plan 72 yo F with chronic diastolic CHF, pulm hypertension, interstitia; lung disease, renal disease, COPD, LARRY, hyperlipidemia, chronic pancreatitis, hyperparathyroidism, hypothyroidism, GERD, history of nephrolithiasis, RLS, enclosing spondylitis depression with anxiety who presents to ED secondary to syncope x2 prior to arrival. Fall, syncope Sick sinus syndrome --CT Head:No acute intracranial abnormality. --CT Neck:No acute cervical spine fracture or subluxation. --Carotid Doppler:There is no sonographic evidence of hemodynamically significant stenosis in the right or left carotid arterial system. Antegrade flow is shown in the vertebral arteries. -- Orthostatics negative in ED --ECHO: No significant change from prior study. Appreciate cardiology input S/p leadless pacemaker placement on 12/16/2022 , tolerated procedure well Fall precautions PT OT as able Cardiology following - plan to see in clinic as outpt Chronic diastolic heart failure Patient follows Dr. Otoole as outpatient Monitor volume status, renal function Initially torsemide held due to JAVI Restarted torsemide 40 mg daily>> increased to 40 mg twice daily JAVI on CKD III Baseline Cr ~ 1.4-1.5 Received gentle IVF Avoid nephrotoxic agents Follows with [facility] Nephrology Monitor renal function Cr 1.4 today Discussed w/ nephrology - ok to DC on torsemide and K suppl. , BMP next week, Nephro outpt follow up 1-2 weeks Acute Bronchitis Intolerance to multiple antibiotics Finished tx w/Augmentin Monitor Recent H/O Complicated ESBL UTI Completed IV ertapenem course Blood Cx:Negative to date Urine Culture: Negative Right Wrist Pain H/O Fall Wrist X ray: No acute fracture or dislocation. Received prednisone for 3 days Wrist pain resolved Right rotator cuff tear Left shoulder contusion (after recent fall) Not a good surgical candidate as per orthopedics Conservative management Follow-up with orthopedics as needed Peripheral neuropathy Lamictal recently added by neurology Continue pregabalin and duloxetine Hypokalemia Replete electrolytes as needed Monitor Currently on 40 bid COPD LARRY- noncompliant with cpap stable DVT Px: Lovenox SQ Code Status :Full code Disposition: plan to DC to [facility] Admission and Anticipated Discharge Date Admission Date: December 08, 2022 Subjective Patient seen in follow up of syncope, bradycardia. now s/p leadless pacer placement Currently laying in bed, in no acute distress No fevers chills chest pain palpitations, no shortness of breath Denies abd. pain. Reports eating well Discussed w/ nephrology - ok to DC on torsemide and K suppl. , BMP next week, Nephro outpt follow up 1-2 weeks Review of Systems Review of Systems: All systems reviewed & are unremarkable except as noted in Subjective Physical Exam Physical Exam: Constitutional: elderly obese F laying in bed in NAD Head: Normocephalic, Atraumatic Eyes: PERRL, conjunctivae normal, anicteric sclerae ENMT: external ear and nose normal, oropharynx normal Neck: normal visual inspection Respiratory: +mild rhonchi (velcro like sounds - seem chronic per pulmonary outpt note). Cardiovascular: RRR, 2/6 pati, no LE edema (resolved) Chest: right upper chest - port a cath Abdomen: normal bowel sounds, soft, obese, nontender Musculoskeletal:+ L shoulder ecchymosis : Cam cath draining yellow urine Skin: no rashes, warm and dry normal turgor Neurologic: PERRL, EOMI, no face palsy, speech fluent, moves all extremities Psychiatric: A+Ox3, euthymic affect Results & Data Results & Data Vital Signs (Past 12 Hours) Vital Signs Temp Pulse Resp BP BP Pulse Ox O2 Del Method 12/18/22 08:40 Room Air 12/18/22 06:58 36.4 C L 64 16 101/58 L 92 Room Air 12/18/22 03:25 36.4 C L 66 19 121/66 99 Nasal Cannula 12/17/22 23:02 36.5 C 69 20 101/62 93 Nasal Cannula 12/17/22 21:26 Room Air Laboratory Results 12/18/22 12/18/22 Range/Units 07:32 07:32 WBC 10.38 (4.8-10.8) K/ul RBC 3.84 L (4.20-5.40) M/uL Hgb 11.3 L (12.0-16.0) g/dl Hct 34.9 L (37.0-47.0) % MCV 90.9 (80.0-100.0) fL MCH 29.4 (25.0-34.0) pg MCHC 32.4 (32.0-36.0) g/dL RDW Std Deviation 45.9 (36.4-46.3) fL RDW Coeff of David 14.0 (11.5-14.5) % Plt Count 191 (130-400) K/uL MPV 10.9 (9.4-12.4) fL Sodium 141 (136-145) mmol/L Potassium 4.2 (3.5-5.1) mmol/L Chloride 101 (98-107) mmol/L Carbon Dioxide 33 H (21-32) mmol/L Anion Gap 7 (3-11) BUN 55 H (6-23) mg/dl Creatinine 1.42 H (0.6-1.2) mg/dl Est Cr Clr Drug Dosing 35.1 ml/min Est GFR ( Amer) 43.3 ml/min Est GFR (Non-Af Amer) 37.3 ml/min BUN/Creatinine Ratio 38.7 H (10-20) Glucose 117 H (70-99(Fasting)) mg/dl Calcium 9.0 (8.5-10.1) mg/dl Phosphorus 3.6 (2.5-4.9) mg/dl Magnesium 1.7 (1.7-2.4) mg/dl Medications Administered Current Inpatient Medications Acetaminophen (Acetaminophen 325 Mg Tab) 650 mg PO Q4H PRN PRN Reason: Pain or Fever Stop: 01/06/23 20:21 Last Admin: 12/17/22 04:04 Dose: 650 mg Albuterol (Albuterol Hfa 8 Gm Inhaler) 2 puffs INH Q6H PRN PRN Reason: Shortness Of Breath Or Wheezing Stop: 01/06/23 20:38 Albuterol (Albut/Ipratrop 3mg/0.5mg Neb 3 Ml Vial) 3 ml INH Q4H PRN; Protocol PRN Reason: Shortness Of Breath Or Wheezing Stop: 01/06/23 20:21 Calcitriol (Calcitriol 0.25 Mcg Capsule) 0.5 mcg PO BID CATE Stop: 01/06/23 20:59 Last Admin: 12/18/22 08:17 Dose: 0.5 mcg Calcium Carbonate (Calcium Carbonate 1250mg Tab) 1,250 mg PO TID CATE Stop: 01/06/23 20:59 Last Admin: 12/18/22 08:19 Dose: 1,250 mg Cyanocobalamin (Cyanocobalamin (B-12) 500 Mcg Tablet) 1,000 mcg PO QAM [facility] Stop: 01/07/23 08:59 Last Admin: 12/18/22 08:18 Dose: 1,000 mcg Desipramine HCl (Desipramine Hcl 50 Mg Tab) 50 mg PO BID CATE Stop: 01/06/23 20:59 Last Admin: 12/18/22 08:18 Dose: 50 mg Duloxetine HCl (Duloxetine Hcl 20 Mg Cap) 20 mg PO HS CATE Stop: 01/06/23 20:59 Last Admin: 12/17/22 21:26 Dose: 20 mg Enoxaparin Sodium (Enoxaparin Inj 40 Mg/0.4 Ml Syr) 40 mg SQ HS CATE Stop: 01/06/23 20:59 Last Admin: 12/14/22 20:33 Dose: 40 mg Escitalopram Oxalate (Escitalopram Oxalate 20 Mg Tab) 20 mg PO QAM CATE Stop: 01/07/23 08:59 Last Admin: 12/18/22 08:18 Dose: 20 mg Fluticasone Furoate (Fluticasone Furoate 100mcg 14 Puffs/Inhaler) 1 puffs INH DAILY CATE Stop: 01/07/23 08:59 Last Admin: 12/18/22 08:19 Dose: 1 puffs Heparin Sodium (Porcine) (Heparin 100 Unit/Ml 5ml Flush 5 Ml Syr) 5 ml IV PRN PRN PRN Reason: Flush Stop: 01/07/23 06:44 Last Admin: 12/14/22 10:51 Dose: 5 ml Lactated Ringer's (Lr) 1,000 mls @ 15 mls/hr IV .Q24H CATE Stop: 12/19/22 02:39 Last Admin: 12/18/22 08:17 Dose: Not Given Lactobacillus Acidophilus (Advanced Probiotic 1250 Mg Capsule) 2 cap PO DAILY CATE Stop: 01/07/23 15:29 Last Admin: 12/18/22 08:18 Dose: 2 cap Lamotrigine (Lamotrigine 25 Mg Tab) 25 mg PO BID CATE Stop: 01/06/23 20:59 Last Admin: 12/18/22 08:18 Dose: 25 mg Levothyroxine Sodium (Levothyroxine Sodium 88 Mcg Tablet) 88 mcg PO DAILYBB [facility] Stop: 01/09/23 06:29 Last Admin: 12/18/22 06:12 Dose: 88 mcg Lidocaine (Lidocaine 5% 1 Patch) 1 patch TD QAM [facility] Stop: 01/07/23 15:29 Last Admin: 12/18/22 08:19 Dose: 1 patch Magnesium Hydroxide (Magnesium Hydroxide Susp 30 Ml Udc) 30 ml PO Q12H PRN PRN Reason: Constipation Stop: 01/06/23 20:21 Miscellaneous (Remove Lidoderm Patch) 1 each N/A DAILY@2100 [facility] Stop: 01/07/23 22:59 Last Admin: 12/17/22 22:42 Dose: 1 each Montelukast Sodium (Montelukast Sodium 10 Mg Tablet) 10 mg PO HS [facility] Stop: 01/06/23 20:59 Last Admin: 12/17/22 21:25 Dose: 10 mg Multivitamins/Minerals (Cerovite Adv Formula Tab) 1 tab PO DAILY CATE Stop: 01/07/23 08:59 Last Admin: 12/18/22 08:18 Dose: 1 tab Ondansetron HCl (Ondansetron Inj 2 Mg/Ml 2 Ml Vial) 4 mg IV Q6H PRN PRN Reason: Nausea Stop: 01/06/23 20:21 Last Admin: 12/17/22 12:29 Dose: 4 mg Oxycodone/Acetaminophen (Oxycodone/Acetaminophen 5mg/325mg Tab) 1 tab PO Q6H PRN PRN Reason: mod-severe pain 5,6,7, 8,9,10 Stop: 12/21/22 20:21 Last Admin: 12/18/22 08:19 Dose: 1 tab Pantoprazole Sodium (Pantoprazole 40 Mg Tab) 40 mg PO BID [facility] Stop: 01/06/23 20:59 Last Admin: 12/18/22 08:18 Dose: 40 mg Polyethylene Glycol (Polyethylene (Miralax) 17 Gm Pack) 17 gm PO DAILY PRN PRN Reason: Constipation Stop: 01/06/23 20:21 Potassium Chloride (Potassium Chloride Crtab 20 Meq Tabcr) 40 meq PO BID [facility] Stop: 01/14/23 20:59 Last Admin: 12/18/22 08:18 Dose: 40 meq Pregabalin (Pregabalin 100 Mg Cap) 100 mg PO TID [facility] Stop: 01/06/23 20:59 Last Admin: 12/18/22 08:18 Dose: 100 mg Risperidone (Risperidone 2 Mg Tablet) 2 mg PO HS CATE Stop: 01/06/23 20:59 Last Admin: 12/17/22 21:25 Dose: 2 mg Ropinirole HCl (Ropinirole Hcl 0.25 Mg Tablet) 0.5 mg PO HS CATE Stop: 01/06/23 20:59 Last Admin: 12/17/22 21:24 Dose: 0.5 mg Rosuvastatin Calcium (Rosuvastatin Calcium 10 Mg Tab) 10 mg PO DAILY CATE Stop: 01/07/23 08:59 Last Admin: 12/18/22 08:18 Dose: 10 mg Tamsulosin HCl (Tamsulosin Hcl 0.4 Mg Cap) 0.4 mg PO DAILY CATE Stop: 01/07/23 08:59 Last Admin: 12/18/22 08:18 Dose: 0.4 mg Torsemide (Torsemide 10 Mg Tab) 40 mg PO BID17 CATE Stop: 01/14/23 16:59 Last Admin: 12/18/22 08:18 Dose: 40 mg Umeclidinium/Vilanterol (Umeclidinium/Vilanterol 62.5/25mcg 7 Puffs/Inhaler) 1 puffs INH DAILY CATE Stop: 01/07/23 08:59 Last Admin: 12/18/22 08:19 Dose: 1 puffs Valacyclovir HCl (Valacyclovir Hcl 500 Mg Tablet) 500 mg PO DAILY CATE Stop: 01/07/23 08:59 Last Admin: 12/18/22 08:18 Dose: 500 mg Vitamin D (Cholecalciferol 1,000 Units 25 Mcg Tab) 2,000 units PO DAILY CATE Stop: 01/07/23 08:59 Last Admin: 12/18/22 08:18 Dose: 2,000 units (3) Contusion of left shoulder Encounter type: initial encounter Qualified Code(s): S40.012A - Contusion of left shoulder, initial encounter
--- NOTE | 2022-12-18 09:16 | Nephrology Progress Note ---
Date of Service December 18, 2022 Assessment & Plan (1) JAVI (acute kidney injury): Plan: Non-oliguric. Creatinine stable at 1.2-1.5 mg/dL. Electrolytes acceptable. Medications appropriately dosed for kidney function. Volume status acceptable. Repeat metabolic profile within 1 week of discharge. Follow up with Dr. Roberts in the nephrology clinic in 1-2 weeks. Continue Torsemide 40 mg BID. Encourage Liz to monitor daily weights. Metolazone PRN. No change in home Rx. KCl 30-40 mEq daily. (2) Near syncope: Plan: History of junctional bradycardia. POD#2 s/p pacer. (3) Ureterolithiasis: Plan: Outpatient follow up with Dr. Roberts. Remains on calcitriol per home Rx. (4) Acute on chronic diastolic CHF (congestive heart failure): Plan: Torsemide 40 mg BID. Close outpatient follow up discussed with patient. Volume status acceptable. Low sodium diet. Monitor daily weights at home. Admission and Anticipated Discharge Date Admission Date: December 08, 2022 Subjective No acute events overnight. No complaints this AM. Anticipated discharge home. Follow up plan reviewed. Review of Systems Review of Systems: All systems reviewed & are unremarkable except as noted in HPI & below Physical Exam Constitutional: well developed; no acute distress and not ill appearing Eyes: + anicteric sclerae; pupils not irregular ENMT: Mouth: oral mucous membranes not dry Neck: normal visual inspection Respiratory: normal respiratory effort Auscultation: lungs clear to auscultation bilaterally Cardiovascular: Rate/Rhythm: regular rhythm Heart Sounds: normal S1, normal S2 and + murmur Extremities: no edema Musculoskeletal: Extremities: no cyanosis and no clubbing Skin: + turgor decreased; no rashes and no jaundice Neurologic: Motor/Sensory: no tremor and no asterixis Psychiatric: Orientation: alert and oriented x 3 Results & Data Vital Signs (Past 12 Hours) Vital Signs Temp Pulse Resp BP BP Pulse Ox O2 Del Method 12/18/22 08:40 Room Air 12/18/22 06:58 36.4 C L 64 16 101/58 L 92 Room Air 12/18/22 03:25 36.4 C L 66 19 121/66 99 Nasal Cannula 12/17/22 23:02 36.5 C 69 20 101/62 93 Nasal Cannula 12/17/22 21:26 Room Air Laboratory Results Laboratory Results - last 24 hr 12/18/22 12/18/22 07:32 07:32 WBC 10.38 RBC 3.84 L Hgb 11.3 L Hct 34.9 L MCV 90.9 MCH 29.4 MCHC 32.4 RDW Std Deviation 45.9 RDW Coeff of David 14.0 Plt Count 191 MPV 10.9 Sodium 141 Potassium 4.2 Chloride 101 Carbon Dioxide 33 H Anion Gap 7 BUN 55 H Creatinine 1.42 H Est Cr Clr Drug Dosing 35.1 Est GFR ( Amer) 43.3 Est GFR (Non-Af Amer) 37.3 BUN/Creatinine Ratio 38.7 H Glucose 117 H Calcium 9.0 Phosphorus 3.6 Magnesium 1.7 PG Care Time/CCT Total # of Minutes Spent Total Time Spent with Patient: Total time spent is greater than 50% in coordination of care (as documented) at patient's floor/unit and/or counseling patient: Coding Level of Care Code 28553 SUB INP/OBS CARE 3/50MIN Diagnoses AJVI (acute kidney injury) N17.9 Near syncope R55 Ureterolithiasis N20.1 Acute on chronic diastolic CHF (congestive heart failure) I50.33
--- NOTE | 2022-12-18 10:49 | Discharge Summary ---
Date of Service December 18, 2022 Admission HPI Per Admitting Provider This is a 72-year-old female who has significant past medical history of chronic diastolic CHF, pulm hypertension, renal disease, COPD, LARRY, hyperlipidemia, chronic pancreatitis, hyperparathyroidism, hypothyroidism, GERD, history of nephrolithiasis, RLS, enclosing spondylitis depression with anxiety who presents to ED secondary to syncope x2 prior to arrival. Patient states that she had 2 falls today. First 1 was when she got out of the shower and was trying to dry herself. She felt, "funny in the head," and the next thing she knew she was on the ground on her left side. She hit the left side of her head and her left shoulder. She was unable to get up pushed her life alert button and EMS was summoned. They were able to get her up to the chair and she refused further evaluation. Upon initial questioning there was concern that patient may have syncopized. She states that she did feel lightheaded prior to the fall but denies any chest pain, shortness of breath diaphoresis or nausea. She feels that she does recall all events and does not feel it was true syncope. The second episode she was walking into the kitchen. When she first got up from her chair she felt, "funny in the head," and the more she walked she then found herself down on the ground again. This time she thinks she fell on her back/buttock. She denies any injury from that fall. Unfortunately due to left shoulder pain he required her to summon EMS again. Per prehospital personnel she was hypotensive with blood pressures in the 70s. In ED she was bolused with IV fluid and her blood pressure stabilized. She was not hypotensive in ED. She was not hypotensive in ED. Lab work notable for H&H 11.0 and 32.9, potassium 3.2, BUN 50, creatinine 1.43, BUN/creatinine ratio 35. Her urine did have positive leukocyte esterase but 10-20 epithelial cells. Due to recent UTI she was given empiric dose of IV ertapenem. She has been taking her medications regularly. She otherwise denies any recent illness, fever, chills, sweats, chest pain, shortness breath at rest, URI symptoms, nausea, vomiting, abdominal pain. He feels like her appetite is at baseline. Currently she complains of significant left shoulder pain and inability to move left shoulder. Of significance patient recently hospitalized 11/16 to 11/20/2022 secondary to complicated UTI. Urine culture grew ESBL and she was treated with IV meropenem for 7-day course. Hospital course was complicated with JAVI with peak creatinine of 1.8 and creatinine of 1.1 on the day of discharge. She received gentle IV fluids and her diuretics were held. She follows closely with [facility] nephrology. Admission Exam Per Admitting Provider Constitutional: WD/WN, appears older than age, slowed speech, vitals as above, NAD, sitting up in bed, pleasant, conversing easily Head: Normocephalic, Atraumatic Eyes: PERRL, conjunctivae normal, anicteric sclerae ENMT: external ear and nose normal, oropharynx normal dry mucus membranes Neck: trachea midline, no thyromegaly normal visual inspection Respiratory: normal respiratory effort, lungs clear to auscultation, no wheeze, rales, rhonchi. Normal insp/exp effort, no accessory muscle use Cardiovascular: RRR, 2/6 pati, b/l +1 edema, no redness/homans, no pain to palp no edema Vessels: no JVD or carotid bruit Chest: normal inspection of chest RACW port a cath Abdomen: normal bowel sounds, soft, nontender, no hepatosplenomegaly Musculoskeletal: no cyanosis or clubbing, L shoulder ecchymosis, inability to abduct L shoulder or extend anterior/laterally, ? bicep tear as well Skin: no rashes, warm and dry normal turgor Neurologic: PERRL, EOMI, accommodation nl, no face palsy, no dysarthria CN's II-XI intact bilaterally and moves all extremities Psychiatric: A+Ox3, euthymic affect Principal Diagnosis Sick sinus rhythm s/p pacemaker placement Discharge Exam Constitutional: elderly obese F laying in bed in NAD Head: Normocephalic, Atraumatic Eyes: PERRL, conjunctivae normal, anicteric sclerae ENMT: external ear and nose normal, oropharynx normal Neck: normal visual inspection Respiratory: +mild rhonchi (velcro like sounds - seem chronic per pulmonary outpt note). Cardiovascular: RRR, 2/6 pati, no LE edema (resolved) Chest: right upper chest - port a cath Abdomen: normal bowel sounds, soft, obese, nontender Musculoskeletal:+ L shoulder ecchymosis : Cam cath draining yellow urine Skin: no rashes, warm and dry normal turgor Neurologic: PERRL, EOMI, no face palsy, speech fluent, moves all extremities Psychiatric: A+Ox3, euthymic affect Discharge Data Allergies Allergy/AdvReac Type Severity Reaction Status Date / Time bethanechol Allergy Intermediate RASH, Verified 12/07/22 16:56 "FEELS FUNNY" Cephalosporins Allergy Intermediate RASH, Verified 12/07/22 15:30 DIARRHEA levofloxacin Allergy Intermediate RASH,TURNED Verified 12/07/22 15:30 RED Sulfa (Sulfonamide Allergy Intermediate Generalized Verified 12/07/22 15:30 Antibiotics) Rash ertapenem Allergy Mild RASH Verified 12/07/22 16:57 clindamycin Allergy Unknown Unknown Verified 12/07/22 15:30 dipyridamole Allergy Unknown UNKNOWN Verified 12/07/22 15:30 droperidol Allergy Unknown Unknown Verified 12/07/22 15:30 promethazine Allergy Unknown UNKNOWN Verified 12/07/22 15:30 tobramycin Allergy Unknown UNKNOWN Verified 12/07/22 15:30 aspirin AdvReac Severe BLEEDING Verified 12/07/22 15:30 doxycycline AdvReac Severe severe Verified 12/07/22 15:30 Diarrhea, nausea metolazone AdvReac Severe ELECTROLYTE Verified 12/07/22 15:30 ISSUES bupropion AdvReac Intermediate NERVOUS Verified 12/07/22 15:30 REACTION cephalexin AdvReac Intermediate GI SYMPTOMS Verified 12/07/22 15:30 morphine AdvReac Intermediate NERVOUS Verified 12/07/22 15:30 REACTION TO IT nitrofurantoin AdvReac Intermediate Vomiting Verified 12/07/22 15:30 [From Macrobid] prochlorperazine AdvReac Intermediate NERVOUS Verified 12/07/22 15:30 REACTION tedizolid AdvReac Intermediate GI SYMPTOMS Verified 12/07/22 15:30 Consultations 12/07/22 16:16 ED Decision to Admit Stat 12/07/22 17:25 Consult Orthopedic Surgery Routine 12/07/22 18:01 Consult Cardiology Routine 12/12/22 07:40 Consult Nephrology Routine Procedures Performed Operation Date: 12/16/22 13:00 Actual Procedures p Insert/Replace Leadless PM - Srikanth Wagner MD Ordered Studies 12/07/22 14:17 CT abd pelvis wo con Stat IMPRESSION: 1. No acute posttraumatic intra-abdominal or intrapelvic abnormality. 2. No bowel obstruction or bowel wall thickening. 3. Bilateral nephrolithiasis. 4. Severely atrophic right kidney. 5. Additional findings as above. CT cervical spine wo con Stat IMPRESSION: No acute cervical spine fracture or subluxation. CT head/brain wo con Stat IMPRESSION: No acute intracranial abnormality. 12/07/22 17:00 US venous doppler LE BI Routine IMPRESSION: 1. There is no sonographic evidence of deep venous thrombosis identified in the right or left lower extremity. 2. Right-sided Bey's cyst. 12/07/22 17:25 US carotid doppler BI Routine IMPRESSION: 1. There is no sonographic evidence of hemodynamically significant stenosis in the right or left carotid arterial system. 2. Antegrade flow is shown in the vertebral arteries. 12/09/22 07:30 EP Lab Images for PACS ONCE 12/16/22 07:30 EP Lab Images for PACS ONCE Hospital Course (1) Near syncope: (2) Fall: (3) Contusion of left shoulder: (4) JAVI (acute kidney injury): Plan 72 yo F with chronic diastolic CHF, pulm hypertension, interstitia; lung disease, renal disease, COPD, LARRY, hyperlipidemia, chronic pancreatitis, hyperparathyroidism, hypothyroidism, GERD, history of nephrolithiasis, RLS, enclosing spondylitis depression with anxiety who presents to ED secondary to syncope x2 prior to arrival. Fall, syncope Sick sinus syndrome --CT Head:No acute intracranial abnormality. --CT Neck:No acute cervical spine fracture or subluxation. --Carotid Doppler:There is no sonographic evidence of hemodynamically significant stenosis in the right or left carotid arterial system. Antegrade flow is shown in the vertebral arteries. -- Orthostatics negative in ED --ECHO: No significant change from prior study. Appreciate cardiology input S/p leadless pacemaker placement on 12/16/2022 , tolerated procedure well Fall precautions PT OT as able Cardiology following - plan to see in clinic as outpt Chronic diastolic heart failure Patient follows Dr. Otoole as outpatient Monitor volume status, renal function Initially torsemide held due to JAVI Restarted torsemide 40 mg daily>> increased to 40 mg twice daily JAVI on CKD III Baseline Cr ~ 1.4-1.5 Received gentle IVF Avoid nephrotoxic agents Follows with [facility] [place] Nephrology Monitor renal function Cr 1.4 today Discussed w/ nephrology - ok to DC on torsemide and K suppl. , BMP next week, Nephro outpt follow up 1-2 weeks Acute Bronchitis Intolerance to multiple antibiotics Finished tx w/Augmentin Monitor Recent H/O Complicated ESBL UTI Completed IV ertapenem course Blood Cx:Negative to date Urine Culture: Negative Right Wrist Pain H/O Fall Wrist X ray: No acute fracture or dislocation. Received prednisone for 3 days Wrist pain resolved Right rotator cuff tear Left shoulder contusion (after recent fall) Not a good surgical candidate as per orthopedics Conservative management Follow-up with orthopedics as needed Peripheral neuropathy Lamictal recently added by neurology Continue pregabalin and duloxetine Hypokalemia Replete electrolytes as needed Monitor Currently on 40 bid COPD LARRY- noncompliant with cpap stable Disposition: plan to DC to [facility] Total Time Total Time Spent Total Time Spent (In Minutes): 40 Discharge Plan Discharge Items Patient Disposition: Transfer Halfway Fac Reason For Visit: SYNCOPE, ARRYTHMIA Discharge Diagnosis: Sick sinus rhythm s/p pacemaker placement Activity: Per Instructions section Non-emergency contact: Primary Care Provider, [facility] [employer] [facility] Call non-emergency contact if: you have any medication questions and your symptoms worsen Follow-up/Referrals: Srikanth Wagner MD [Physician] - 01/19/23 3:00 pm Frederick Reynaga DO [Primary Care Provider] - Diet: Heart Healthy Addtl Attending Provider Instructions: Follow-up with your primary care physician, nephrology, and cardiology. Continue taking torsemide 40 mg twice a day. You will also need to take potassium supplement as prescribed. Instead of 10 mEq 3-times a day, take 20 mEq 3-times a day. It is recommended that you have blood work done, BMP, early next week. You should also follow-up with nephrology within 1 to 2 weeks. Please follow-up with your primary care physician within 1 to 2 weeks as well. You will also need to follow-up with cardiology given your recent pacemaker placement. Recommend taking probiotics for at least a week. Pending Studies at Discharge: No Stand-Alone Forms: [employer] Skilled Items Patient informed of condition?: Yes DNR: No Discharge Level of Care: Skilled Communicable Disease: No Discharge Prognosis: Stable Lines: None Urinary Catheter: No Medications and DC Order Prescriptions: New Advanced Probiotic 625 mg (10 billion cell) Capsule 2 cap PO DAILY 7 Days Qty: 14 0RF Continued colesevelam [WelChol] 625 mg tablet 625 mg PO TID Patient Comments: before meals , morning , noon and night Rx Instructions: PER [facility]-TAKE 1250 MG BIDM. montelukast [Singulair] 10 mg tablet 10 mg PO HS Prilosec OTC 20 mg tablet,delayed release (DR/EC) 20 mg PO BID mecobalamin (vitamin B12) 1,000 mcg tablet,disintegrating 1,000 mcg PO QAM Rx Instructions: place tablet under tongue and allow to dissolve for at least30 secs before swallowing desipramine 50 mg tablet 50 mg PO BID Rx Instructions: PER [facility]--TAKE 25 MG TID, THEN 50 AT HS. pregabalin 100 mg capsule 100 mg PO TID Qty: 90 2RF duloxetine [Cymbalta] 20 mg capsule,delayed release(DR/EC) 20 mg PO HS Qty: 30 5RF calcium carbonate [Calcium 600] 600 mg calcium (1,500 mg) tablet 1,200 mg PO TID Qty: 180 5RF calcitriol 0.5 mcg capsule 0.5 mcg PO BID Qty: 60 5RF Trelegy Ellipta 100-62.5-25 mcg blister with device 1 inh inhalation QAM Qty: 60 5RF Rx Instructions: USE ONE INHALATION EVERY MORNING albuterol sulfate 90 mcg/actuation aerosol powdr breath activated 2 inh INH Q6H PRN (Reason: Shortness Of Breath Or Wheezing) Qty: 1 3RF lamotrigine 25 mg tablet 25 mg PO BID Qty: 60 3RF ipratropium-albuterol 0.5 mg-3 mg(2.5 mg base)/3 mL Solution For Nebulization 3 ml INHALATION Q4H PRN (Reason: Shortness Of Breath Or Wheezing) Creon 24,000-76,000 -120,000 unit Capsule,Delayed Release(Dr/Ec) 4 cap PO TID Patient Comments: before meals torsemide 20 mg tablet 40 mg PO BID valacyclovir 500 mg tablet 500 mg PO DAILY ropinirole 0.5 mg tablet 0.5 mg PO HS escitalopram oxalate 20 mg tablet 20 mg PO QAM rosuvastatin 10 mg tablet 10 mg PO DAILY metolazone 2.5 mg Tablet 2.5 mg PO DAILY PRN (Reason: WT >199 LBS.) oxycodone-acetaminophen [Percocet] 5-325 mg Tablet 1 tab PO Q6H PRN (Reason: Pain) tamsulosin [Flomax] 0.4 mg Capsule 0.4 mg PO DAILY cholecalciferol (vitamin D3) [Vitamin D3] 25 mcg (1,000 unit) Capsule 50 mcg PO DAILY [id number] Tablet 1 tab PO DAILY risperidone 2 mg Tablet 2 mg PO HS levothyroxine 88 mcg tablet 88 mcg PO QAM lorazepam 0.5 mg tablet 0.5 mg PO BID PRN (Reason: Anxiety) Changed potassium chloride 10 mEq capsule, extended release 20 meq PO TID Qty: 30 0RF Discharge Orders: Discharge Order (Routine); Ordered 12/18/22 Ordered By: Kenny Easley Admission Data Admit Date/Time: 12/08/22 15:11 Attending Provider: Kenny Easley Admit Provider: Kenny Easley Primary Care Provider: Frederick Reynaga Other Providers: Kenny Easley ; Gilberto Younger ; Kevon Dye ; Iesha [place] ; Aubrey Chicas
--- NOTE | 2022-12-19 05:44 | Electrocardiogram Report ---
Test Reason : Blood Pressure : / mmHG Vent. Rate : 064 BPM Atrial Rate : 064 BPM P-R Int : 222 ms QRS Dur : 112 ms QT Int : 450 ms P-R-T Axes : 056 -29 034 degrees QTc Int : 464 ms Sinus rhythm with 1st degree A-V block Moderate voltage criteria for LVH, may be normal variant Abnormal ECG When compared with ECG of 15-DEC-2022 22:24, No significant change Confirmed by Nicho Lombardi ([id number]) on 12/19/2022 5:44:09 AM Referred By: NO PCP Confirmed By:Nicho Lombardi
== END 2022-12-18 14:49 | DRG 229 ==
LOC: ED 14:00 → EDINP 14:00 → 2W 20:23 → SUATTDRO 12-08 15:11 → 2E 12-08 20:22

== ENCOUNTER 2023-05-20 13:14 | Inpatient (IN) ==
--- NOTE | 2023-05-20 13:19 | ED Triage Note ---
Date of Service May 20, 2023 History of Present Illness This patient was briefly evaluated while in triage. An abbreviated physical exam was performed. This patient is a 72-year-old Female who presents to the ED for evaluation of weakness. She fell 4 days ago (Sat) and was seen by her PCP on Thursday and was diagnosed with a concussion and low potassium. She has been taking potassium supplements without improvement. She states that she had a CT scan of her head and neck done at [facility] that was negative per patient. She had a ground level fall again today. She states that she was getting in the car and just felt weak and shaky causing her to fall. She did not hit her head and denies any pain or symptoms from her current fall. Still just feels weak and shaky. Her BPs have been low recently, but she states that this is normal. BSG 86. She is not on blood thinners. Currently denies any head injury symptoms and denies new head injury. Physical Exam GENERAL: Non-toxic and in no acute distress. HEENT: Pupils equal. No obvious scleral icterus. HEART: Regular rate and rhythm. LUNGS: Clear to auscultation. No accessory muscle use. ABDOMEN: Soft, BS normal. Non-tender to palpation. NEURO: Alert and oriented. No obvious neurological deficits on quick neuro exam. MUSCULOSKELETAL: Extremities are non tender to palpation. No cervical, thoracic, or lumbar spine tenderness. Initial orders for labs and / or imaging were placed and patient was placed in the waiting area until a bed is available. Please see further documentation for the full ED course.
[2023-05-20] MEDS ORDERED: SODIUM CHLORIDE 0.9% 500 ML IV SCH (13:30)
--- NOTE | 2023-05-20 14:28 | XRay Report ---
XR chest 1V not portable CLINICAL HISTORY: weakness TECHNIQUE: Single frontal radiograph of the chest was obtained. Comparison: Comparison is made to chest radiograph 12/17/2022 FINDINGS: A port catheter is seen. Cardiomegaly is noted. Reticular interstitial opacities are seen. No evidenc e of pleural effusion or pneumothorax. IMPRESSION: No acute chest disease. ACT 112: Negative or not required by law. Electronically signed by: Evan Ventura M.D. 05/20/2023 2:27 PM
[2023-05-20 14:45] LABS: Appearance Urine Clear (Clear); Bacteria Urine Automated Negative (Negative); Bilirubin Urine Negative (Negative); Blood Urine Negative (Negative); Cast Urine Automated 0 /lpf (0-5); Color Urine Yellow; Glucose Urine UA Negative (Negative); Ketones Urine Negative (Negative); Leukocyte Esterase Urine 2+ (Negative); Nitrite Urine Positive (Negative); Protein Urine Negative (Negative); RBC Urine Automated 0-4 /hpf (0-4); Specific Gravity Urine 1.007 (1.000-1.030); Urobilinogen Urine Negative (Negative); WBC Urine Automated >30 /hpf (0-5)
[2023-05-20] MEDS ORDERED: AMPICILLIN/SULBACTAM SOD 3,000 MG in 0.9 % SODIUM CHLORIDE 100 ML IV STA (15:50)
--- NOTE | 2023-05-20 15:57 | Emergency Department Note ---
Impression & Plan Falls frequently, Head injury, Hypokalemia, Generalized weakness, Urinary tract infection, Acute dehydration, Elevated troponin I level ED Provider Note NAME: JOSHUA ZAVALA AGE: 72 SEX: F : 1950 ARRIVES VIA: Ambulance INFORMANT: Patient, ED PROVIDER(S): Boby Norton DO CHIEF COMPLAINT: Weakness HPI: The patient is a 72-year-old female who presented to the emergency department for an evaluation of generalized weakness. The patient states that she has been having problems over the course of the last few weeks. She states over the last few days she has had frequent falling. She fell this morning. Today's fall was not very severe. She relates that a few days ago she did fall and strike her head. She denies having any neck or back pain. She does complain of right flank pain. She has a history of frequent urinary tract infections. She has not been seen by her family doctor. She states that she has been compliant with her outpatient medications. She notices no vomiting or signs of rectal bleeding. The patient called 911 today to come to the emergency department at the request of some of her neighbors. They thought she was more weak than usual. ROS: See above HPI for pertinent positives & negatives. A total of 10 systems reviewed and were otherwise negative. PAST MEDICAL HISTORY: See Below PAST SURGICAL HISTORY: See Below FAMILY HISTORY: See Below SOCIAL HISTORY: See Below HOME MEDICATIONS: See Below ALLERGIES: See Below VITALS: See Below PHYSICAL EXAMINATION: GENERAL: The patient is awake and alert. She was evaluated in triage. She does not appear to be uncomfortable. EYES: The conjunctivae are clear. The pupils are round and reactive. EARS, NOSE, MOUTH AND THROAT: The nose is without any evidence of any deformity. There is an area of ecchymosis over the forehead NECK: The neck is nontender and supple. RESPIRATORY: Diminished breath sounds are noted at the bases. There is no tachypnea or conversational dyspnea. CARDIOVASCULAR: Regular rate and rhythm noted there no murmurs rubs or gallops normal S1 normal S2. GASTROINTESTINAL: The abdomen is distended. There is diffuse tenderness to palpation but no guarding rigidity. BACK: Right CVA tenderness was noted to percussion. MUSCULOSKELETAL/EXTREMITIES: There is no evidence of gross deformity full range of motion is noted in the hips and shoulders. SKIN: Skin is warm and dry. Pedal edema was noted bilaterally. NEUROLOGIC: Patient is awake alert and oriented x3. Strength is symmetric but diminished. MEDICAL DECISION MAKING: The patient is a 72-year-old female who presented to the emergency department for an evaluation of generalized weakness. She came by ambulance. She has had frequent falls recently. She struck her head recently. The patient was found have signs of urinary tract infection on urinalysis. She was treated with IV antibiotics after I reviewed the patient's recent urine cultures. She was also treated with IV fluids. I discussed patient's laboratory and radiographic studies with her. Given her age and comorbidities as well as her findings this evening I do not feel the patient would be a good candidate for outpatient [facility]. For this reason I discussed her condition [facility] They have agreed to evaluate the patient in the emergency department for further management and disposition. Triage Nursing notes reviewed. Prior medical records reviewed Vital Signs: reviewed and remarkable for initial hypotension. Differential diagnosis: Infection, dehydration, metabolic abnormality, hypo/hyperglycemia, electrolyte disturbance, anemia, hypoxia, cardiac sources, intracerebral event, toxicologic, neurologic, as well as other pathologies. ER treatment provided: See below Diagnostics interpreted by me: ECG: EKG was obtained in the emergency department. My interpretation is ventricular paced rhythm at 54 bpm. [place] beats were noted. Left bundle- branch block pattern was favored. This was compared to a tracing from December 16, 2022. Sinus rhythm has been replaced with paced rhythm. Cardiac Monitoring: An order was placed for continuous cardiac monitoring. The monitor shows a rate of 84 bpm with paced rhythm. Laboratory studies: As stated above and show below. Imaging studies: See below. Radiographic imaging was reviewed by myself Consultation(s): I discussed this case with Dr. Ventura who is [facility]call [facility]. Past Med/Surg History Medical History Asthma Atherosclerosis of both lower extremities Chronic diastolic (congestive) heart failure [place] [facility] [place] Chronic kidney disease stage 3b Chronic sinusitis Chronic urinary tract infection Chronic venous insufficiency COPD (chronic obstructive pulmonary disease) "Well controlled" Depression GERD without esophagitis H/O concussion Remote hx "a long time ago" History of anemia History of DVT (deep vein thrombosis) Hyperlipidemia per records Hypothyroidism Incisional hernia Abdominal (from multiple surgeries/feeding tube) Kidney stones Lumbar transverse process fracture Pt reports lower back detioriating - can't lie flat/sleep on a chair MRSA (methicillin resistant staph aureus) culture positive Hx (Left wrist) Had 3 nasal swab and all negative (through [facility] per pt) Obesity Osteoporosis Pacemaker Med[employer], implanted 12/2022 (bradycardia) Pancreatic insufficiency chronic pancreatitis Peripheral neuropathy Port-A-Cath in place right side due to poor vascular access PUD (peptic ulcer disease) Had feeding tube for 28 years (has been removed for 11 years) Pulmonary hypertension mild per 07/[address] report PVC (premature ventricular contraction) Reactive hypoglycemia Right rotator cuff tear Secondary hyperparathyroidism Sepsis 05/2020 @ [facility], urosepsis 2/2 obstructing renal stone, S/P cysto/stent and ESWL Short bowel syndrome Sleep apnea complex sleep apnea, BIPAP (non-compliant) Urinary leakage Wrist injury Scar tissue surrounding remote wrist ORIF several years ago resulting in intermittent inflammation per pt Surgical History H/O shoulder surgery RT arthroscopy 05/28/2021: LMA#4 atraumatic x 1 + PNB. Anesthesia postop progress note: "Pt denies SOB at this time. Block is functioning well. Vital signs stable and appropriate. Oxygenating well considering block placement and her comorbidities. Plan to discharge home with IS." History of appendectomy History of cardiac cath 08/2019 ([facility])- essentially normal coronary arteries angiographically, no stents History of cholecystectomy History of colonoscopy History of cystoscopy multiple History of esophageal dilatation History of esophagogastroduodenoscopy (EGD) History of gastrointestinal surgery multiple History of joint replacement Rt thumb History of knee replacement procedure of right knee History of open reduction and internal fixation (ORIF) procedure left wrist + manipulation (01/2018) and I&D (10/2019) History of partial gastrectomy History of prior ablation treatment Right LE in January 2020 and left LE 04/18/20 History of sinus surgery History of tonsillectomy and adenoidectomy History of total abdominal hysterectomy and bilateral salpingo-oophorectomy S/P right rotator cuff repair S/P ureteral stent placement Status post laser lithotripsy of ureteral calculus Family History Mother Family history of diabetes mellitus Sister Family history of diabetes mellitus Family history of breast cancer Father Esophageal cancer Other Family history non-contributory No family history of adverse response to anesthesia Social History Smoking Status: Never smoker Second Hand Exposure: No; Do You Dip or Chew Tobacco: No; Hx Alcohol Use: Yes Alcohol type: beer Hx Substance Use: No Preferred Language: Stateless Communication Ability: Effective Visual Impairment: No Limitations Adult Education Teacher Required: No Beliefs That Will Affect Care: None marital status: Single Current Living Situation: Alone Current Living Situation Comment: APARTMENT COMPLEX>FRIENDS ALL AROUND How many Children do You have: 0 Feels Safe at Home: Yes Assistive Devices: Denture - Upper, Denture - Lower, Glasses and Walker Allergies Allergies Allergy/AdvReac Type Severity Reaction Status Date / Time bethanechol Allergy Intermediate RASH, Verified 04/27/23 12:57 "FEELS FUNNY" Cephalosporins Allergy Intermediate RASH, Verified 04/27/23 12:57 DIARRHEA levofloxacin Allergy Intermediate RASH,TURNED Verified 04/27/23 12:57 RED Sulfa (Sulfonamide Allergy Intermediate Generalized Verified 04/27/23 12:57 Antibiotics) Rash ertapenem Allergy Mild RASH Verified 04/27/23 12:57 clindamycin Allergy Unknown Unknown Verified 04/27/23 12:57 dipyridamole Allergy Unknown UNKNOWN Verified 04/27/23 12:57 droperidol Allergy Unknown Unknown Verified 04/27/23 12:57 promethazine Allergy Unknown UNKNOWN Verified 04/27/23 12:57 tobramycin Allergy Unknown UNKNOWN Verified 04/27/23 12:57 aspirin AdvReac Severe BLEEDING Verified 04/27/23 12:57 doxycycline AdvReac Severe severe Verified 04/27/23 12:57 Diarrhea, nausea metolazone AdvReac Severe ELECTROLYTE Verified 04/27/23 12:57 ISSUES bupropion AdvReac Intermediate NERVOUS Verified 04/27/23 12:57 REACTION cephalexin AdvReac Intermediate GI SYMPTOMS Verified 04/27/23 12:57 morphine AdvReac Intermediate NERVOUS Verified 04/27/23 12:57 REACTION TO IT nitrofurantoin AdvReac Intermediate Vomiting Verified 04/27/23 12:57 [From Macrobid] prochlorperazine AdvReac Intermediate NERVOUS Verified 04/27/23 12:57 REACTION tedizolid AdvReac Intermediate GI SYMPTOMS Verified 04/27/23 12:57 lamotrigine AdvReac Unknown tremors Verified 04/27/23 12:57 Home Meds Home Medications Medication Instructions Recorded Confirmed colesevelam 625 mg tablet (WelChol) 625 mg PO TID 06/17/18 04/17/23 montelukast 10 mg tablet 10 mg PO HS 06/17/18 04/17/23 (Singulair) ipratropium 0.5 mg-albuterol 3 mg 3 ml inhalation Q4H PRN Shortness 05/05/19 04/17/23 (2.5 mg base)/3 mL nebulization Of Breath Or Wheezing soln vmdgxv-ftegugcj-qqyxjaq 4 cap PO TID 05/05/19 04/17/23 24,000-76,000-120,000 unit capsule,delayed rel (Creon) omeprazole magnesium 20 mg 20 mg PO BID 05/17/19 04/17/23 tablet,delayed release (Prilosec OTC) mecobalamin (vitamin B12) 1,000 1,000 mcg PO QAM 01/21/21 04/17/23 mcg disintegrating tablet,sublingual risperidone 2 mg tablet 2 mg PO HS 02/27/21 04/17/23 desipramine 50 mg tablet 50 mg PO BID 01/23/22 04/17/23 levothyroxine 88 mcg tablet 88 mcg PO QAM 05/19/22 04/17/23 lorazepam 0.5 mg tablet 0.5 mg PO BID PRN Anxiety 11/06/22 04/17/23 cholecalciferol (vitamin D3) 25 50 mcg PO QAM 11/15/22 04/17/23 mcg (1,000 unit) capsule (Vitamin D3) escitalopram oxalate 20 mg tablet 20 mg PO QAM 11/15/22 04/17/23 metolazone 2.5 mg tablet 2.5 mg PO DAILY PRN WT >199 LBS. 11/15/22 04/17/23 oxycodone-acetaminophen 5 mg-325 1 tab PO Q6H PRN Pain 11/15/22 04/17/23 mg tablet (Percocet) ropinirole 0.5 mg tablet 0.5 mg PO HS 11/15/22 04/17/23 rosuvastatin 10 mg tablet 10 mg PO HS 11/15/22 04/17/23 tamsulosin 0.4 mg capsule (Flomax) 0.4 mg PO QAM 11/15/22 04/17/23 valacyclovir 500 mg tablet 500 mg PO QAM 11/15/22 04/17/23 fexofenadine 60 mg tablet 60 mg PO BID 12/31/22 04/17/23 gglnzzfw-kuq-yfhie acid 0.4 1 tab PO DAILY 12/31/22 04/17/23 mg-lycopene 300 mcg-lutein 250 mcg tablet (Cerovite Senior) penicillin V potassium 500 mg 500 mg PO QID 12/31/22 04/17/23 tablet torsemide 20 mg tablet 20 mg PO BID 12/31/22 04/17/23 duloxetine 30 mg capsule,delayed 30 mg PO HS 04/17/23 04/17/23 release vibegron 75 mg tablet (Gemtesa) 75 mg PO QAM 04/17/23 04/17/23 Previous Rx's Medication Instructions Recorded calcitriol 0.5 mcg capsule 0.5 mcg PO BID #60 caps 12/21/22 potassium citrate-citric acid 15 ml PO BID #473 mL 12/31/22 1,100 mg-334 mg/5 mL oral solution calcium carbonate 600 mg calcium 1,200 mg PO TID #180 tabs 01/01/23 (1,500 mg) tablet (Calcium) albuterol sulfate 90 mcg/actuation 2 inh inhalation Q6H PRN Shortness 02/03/23 breath activated powder inhaler Of Breath Or Wheezing #1 ea fluticasone fur. 100 mcg-umeclid 1 inh inhalation QAM #60 ea 02/03/23 62.5 mcg-vilant 25 mcg inhalat.powder (Trelegy Ellipta) potassium chloride 20 mEq 20 meq PO TID #90 tabs 03/30/23 tablet,extended release pregabalin 100 mg capsule 100 mg PO TID 30 days #90 caps 04/21/23 Results & Data (ED) Vital Signs Vital Signs - 24 hr 05/20/23 13:18 05/20/23 15:58 05/20/23 15:58 Temperature 36.5 C Temperature Source Temporal Artery Scan Pulse Rate 55 L Pulse Rate [Apical] 59 L Pulse Rate from SpO2 Sensor Respiratory Rate 18 12 Respiratory Effort / Characteristics Non-Labored Respiratory Depth Normal Blood Pressure 103/57 L Blood Pressure [Left Arm] 132/61 Blood Pressure Mean 72 Blood Pressure Mean [Left Arm] 84 Pulse Oximetry 98 98 98 Oxygen Delivery Method Room Air Room Air Room Air Sepsis Recent Fever Within 48 Hours No Sepsis New/Unexplained Change in Mental Status No Sepsis Action Taken by Nursing No Action Required 05/20/23 16:12 05/20/23 16:35 05/20/23 17:30 Temperature Temperature Source Pulse Rate 58 L 58 L 77 Pulse Rate [Apical] Pulse Rate from SpO2 Sensor 55 L Respiratory Rate 19 14 Respiratory Effort / Characteristics Respiratory Depth Blood Pressure 113/62 Blood Pressure [Left Arm] Blood Pressure Mean 79 Blood Pressure Mean [Left Arm] Pulse Oximetry 96 Oxygen Delivery Method Sepsis Recent Fever Within 48 Hours Sepsis New/Unexplained Change in Mental Status Sepsis Action Taken by Nursing 05/20/23 18:00 05/20/23 18:12 05/20/23 19:00 Temperature Temperature Source Pulse Rate 60 56 L 84 Pulse Rate [Apical] Pulse Rate from SpO2 Sensor Respiratory Rate 16 12 23 Respiratory Effort / Characteristics Respiratory Depth Blood Pressure 133/71 133/71 141/77 H Blood Pressure [Left Arm] Blood Pressure Mean 91 91 98 Blood Pressure Mean [Left Arm] Pulse Oximetry Oxygen Delivery Method Sepsis Recent Fever Within 48 Hours Sepsis New/Unexplained Change in Mental Status Sepsis Action Taken by Correction Medications Current Medication List: was personally reviewed by me Laboratory Data Attestation: I reviewed the patient's lab results. 05/20/23 17:18 05/20/23 17:18 Lab Results 05/20/23 05/20/23 05/20/23 Range/Units 14:25 16:27 17:18 WBC 6.42 (4.8-10.8) K/ul RBC 4.42 (4.20-5.40) M/uL Hgb 12.8 (12.0-16.0) g/dl Hct 37.4 (37.0-47.0) % MCV 84.6 (80.0-100.0) fL MCH 29.0 (25.0-34.0) pg MCHC 34.2 (32.0-36.0) g/dL RDW Std Deviation 48.3 H (36.4-46.3) fL RDW Coeff of David 15.7 H (11.5-14.5) % Plt Count 193 (130-400) K/uL MPV 9.6 (9.4-12.4) fL Immature Gran % (Auto) 0.3 % Neut % (Auto) 67.2 % Lymph % (Auto) 21.3 % [place] % (Auto) 9.2 % Eos % (Auto) 1.4 % Baso % (Auto) 0.6 % Neut # (Auto) 4.31 (1.40-6.50) K/uL Lymph # (Auto) 1.37 (1.2-3.4) K/uL [place] # (Auto) 0.59 (0.11-0.59) K/uL Eos # (Auto) 0.09 (0-0.50) K/uL Baso # (Auto) 0.04 (0-0.2) K/uL Immature Gran # (Auto) 0.02 (0.01-0.20) K/uL Sodium (136-145) mmol/L Potassium (3.5-5.1) mmol/L Chloride (98-107) mmol/L Carbon Dioxide (21-32) mmol/L Anion Gap (3-11) BUN (6-23) mg/dl Creatinine (0.6-1.2) mg/dl Est Cr Clr Drug Dosing ml/min Est GFR ( Amer) ml/min Est GFR (Non-Af Amer) ml/min BUN/Creatinine Ratio (10-20) Glucose (70-99(Fasting)) mg/dl Calcium (8.6-10.3) mg/dl Magnesium (1.7-2.4) mg/dl Total Bilirubin (0.2-1.0) mg/dl AST (13-39) U/L ALT (7-52) U/L Alkaline Phosphatase (34-104) U/L Troponin I High Sens (0-14) pg/ml C-Reactive Protein (0-0.5) mg/dl Total Protein (6.0-8.3) gm/dl Albumin (3.4-5.0) gm/dl Globulin (2.5-4.0) gm/dl Albumin/Globulin Ratio (0.9-2) Procalcitonin (0-0.5) ng/ml TSH (0.300-4.500) uIu/ml Urine Color Yellow Urine Appearance Clear (Clear) Urine pH 7.0 (4.5-7.5) Ur Specific [place] 1.007 (1.000-1.030) Urine Protein Negative (Negative) Urine Glucose (UA) Negative (Negative) Urine Ketones Negative (Negative) Urine Blood Negative (Negative) Urine Nitrite Positive A (Negative) Urine Bilirubin Negative (Negative) Urine Urobilinogen Negative (Negative) Ur Leukocyte Esterase 2+ H (Negative) Urine WBC (Auto) >30 H (0-5) /hpf Urine RBC (Auto) 0-4 (0-4) /hpf U Hyaline Cast (Auto) 0 (0-5) /lpf U Epithel Cells (Auto) 5-10 H (0-5) /lpf Urine Bacteria (Auto) Negative (Negative) SARS-CoV-2, RNA, NAAT NEGATIVE (NEGATIVE) 05/20/23 05/20/23 05/20/23 Range/Units 17:18 17:18 17:27 WBC (4.8-10.8) K/ul RBC (4.20-5.40) M/uL Hgb (12.0-16.0) g/dl Hct (37.0-47.0) % MCV (80.0-100.0) fL MCH (25.0-34.0) pg MCHC (32.0-36.0) g/dL RDW Std Deviation (36.4-46.3) fL RDW Coeff of David (11.5-14.5) % Plt Count (130-400) K/uL MPV (9.4-12.4) fL Immature Gran % (Auto) % Neut % (Auto) % Lymph % (Auto) % [place] % (Auto) % Eos % (Auto) % Baso % (Auto) % Neut # (Auto) (1.40-6.50) K/uL Lymph # (Auto) (1.2-3.4) K/uL [place] # (Auto) (0.11-0.59) K/uL Eos # (Auto) (0-0.50) K/uL Baso # (Auto) (0-0.2) K/uL Immature Gran # (Auto) (0.01-0.20) K/uL Sodium 135 L (136-145) mmol/L Potassium 2.3 L* (3.5-5.1) mmol/L Chloride 93 L (98-107) mmol/L Carbon Dioxide 32 (21-32) mmol/L Anion Gap 10 (3-11) BUN 54 H (6-23) mg/dl Creatinine 1.18 (0.6-1.2) mg/dl Est Cr Clr Drug Dosing 42.7 ml/min Est GFR ( Amer) 54.1 ml/min Est GFR (Non-Af Amer) 46.7 ml/min BUN/Creatinine Ratio 45.8 H (10-20) Glucose 112 H (70-99(Fasting)) mg/dl Calcium 8.9 (8.6-10.3) mg/dl Magnesium 2.2 (1.7-2.4) mg/dl Total Bilirubin 0.5 (0.2-1.0) mg/dl AST 29 (13-39) U/L ALT 19 (7-52) U/L Alkaline Phosphatase 76 (34-104) U/L Troponin I High Sens 22.4 H (0-14) pg/ml C-Reactive Protein 0.72 H (0-0.5) mg/dl Total Protein 6.7 (6.0-8.3) gm/dl Albumin 4.0 (3.4-5.0) gm/dl Globulin 2.7 (2.5-4.0) gm/dl Albumin/Globulin Ratio 1.5 (0.9-2) Procalcitonin < 0.05 (0-0.5) ng/ml TSH 2.050 (0.300-4.500) uIu/ml Urine Color Urine Appearance (Clear) Urine pH (4.5-7.5) Ur Specific [place] (1.000-1.030) Urine Protein (Negative) Urine Glucose (UA) (Negative) Urine Ketones (Negative) Urine Blood (Negative) Urine Nitrite (Negative) Urine Bilirubin (Negative) Urine Urobilinogen (Negative) Ur Leukocyte Esterase (Negative) Urine WBC (Auto) (0-5) /hpf Urine RBC (Auto) (0-4) /hpf U Hyaline Cast (Auto) (0-5) /lpf U Epithel Cells (Auto) (0-5) /lpf Urine Bacteria (Auto) (Negative) SARS-CoV-2, RNA, NAAT (NEGATIVE) Administered Medications Potassium Chloride (K Hermilo / Wtr) 10 meq in 100 mls @ 100 mls/hr IV ONE ONE Stop: 05/20/23 19:22 Last Admin: 05/20/23 18:39 Dose: 100 mls/hr Documented By: ARETHA Discontinued Medications Sodium Chloride (Nss) 500 mls @ 999 mls/hr IV .Q31M CATE Stop: 05/20/23 14:00 Last Admin: 05/20/23 15:57 Dose: 999 mls/hr Documented By: EDGAR Ampicillin Sodium/Sulbactam Sodium 3,000 mg/ Sodium Chloride 108 mls @ 200 mls/hr IV NOW STA; Protocol Stop: 05/20/23 16:22 Last Infusion: 05/20/23 17:09 Dose: 0 mls/hr Documented By: Admin: 05/20/23 16:25 Dose: 200 mls/hr Documented By: ARETHA Potassium Chloride (Potassium Chloride 10 Meq Tabcr) 20 meq PO NOW STA Stop: 05/20/23 18:24 Last Admin: 05/20/23 18:39 Dose: 20 meq Documented By: ARETHA Imaging Data Attestation: I personally reviewed and interpreted this imaging study as follows: My Impression: 1 view chest x-ray was obtained in the emergency department. My interpretation is no free air or definite infiltrate, final report below. CT of the brain was obtained in the emergency department. My interpretation is no intracranial hemorrhage or mass effect, final report below. Radiologist's Impression: Chest X-Ray 05/20/23 13:23 XR chest 1V not portable CLINICAL HISTORY: weakness TECHNIQUE: Single frontal radiograph of the chest was obtained. Comparison: Comparison is made to chest radiograph 12/17/2022 FINDINGS: A port catheter is seen. Cardiomegaly is noted. Reticular interstitial opacities are seen. No evidence of pleural effusion or pneumothorax. IMPRESSION: No acute chest disease. ACT 112: Negative or not required by law. Electronically signed by: Evan Ventura M.D. 05/20/2023 2:27 PM Abdomen/Pelvis CT 05/20/23 15:49 CT abd pelvis wo con CLINICAL HISTORY: flank pain, right TECHNIQUE: Helical axial images of the abdomen and pelvis were obtained. Aut omated dose lowering techniques and/or adjustment according to patient size were utilized for this exam. This exam was performed without intravenous contrast. CT DOSE: 2266.84 mGy.cm COMPARISON: None available at the time of this dictation. FINDINGS: Lower chest: Bibasilar atelectasis versus scarring is seen. Liver: Unremarkable. No focal lesions are seen. Gallbladder and biliary tree: Patient is status post cholecystectomy. Physiologic prominence of the biliary ducts is noted. Pancreas: Unremarkable, no focal lesions. Spleen: Unremarkable. Adrenals: Unremarkable. Kidneys and ureters: Diminutive right kidney is seen. Bilateral nonobstructive stones are seen. No hydronephrosis is seen. Bladder: Unremarkable. Reproductive organs: Patient is status post hysterectomy. Bowel: A hiatal hernia is seen. Lymph nodes Retroperitoneal: Unremarkable. Pelvic: Unremarkable. Mesenteric: Unremarkable. Peritoneum: Normal. Vessels: Unremarkable. Abdominal wall: Ventral hernia is again seen. Bones: Unremarkable. IMPRESSION: No acute abnormality. Bilateral nephrolithiasis with atrophic right kidney again seen. Additional findings as above. ACT 112: Negative or not required by law. Electronically signed by: Evan Ventura M.D. 05/20/2023 4:[address] 05/20/23 15:[address] DOSE: HISTORY: Neck pain. fall TECHNIQUE: Multiaxial CT images of the cervical spine were performed and reformatted in the sagittal and coronal plane without the use of contrast. A dose lowering technique was utilized adhering to the principles of ALARA. COMPARISON: Cervical spine CT 12/07/2022. FINDINGS: No fractures. No subluxation. Prevertebral soft tissues and the C1-C2 interval are intact. No pneumothorax. Partially visualized right jugular catheter is again noted. IMPRESSION: No fractures within the cervical spine. ACT 112: Negative or not required by law. Electronically signed by: Noel Crenshaw M.D. 05/20/2023 4:[address] 05/20/23 15:49 CT head/brain wo con CLINICAL HISTORY: fall Technique: Contiguous axial CT images of the head were acquired from the base of the skull to the vertex without intravenous contrast administration. Images were viewed in brain, subdural and bone windows. Automated dose lowering techniques and/or adjustment according to patient size were utilized for this exam. Comparison: None available at the time of this dictation. Findings: Areas of decreased attenuation are present in the periventricular and subcortical white matter bilaterally consistent with small vessel ischemic disease. Generalized cerebral atrophy with commensurate enlargement of the ventricles, sulci, and cisterns is also present. There is no acute intracranial hemorrhage or evidence of acute territorial infarction. No shift of the midline structures, mass effect, or extra-axial abnormalities are shown. Athero sclerotic calcifications are present in the intracranial segments of the internal carotid arteries. Right maxillary sinus disease is again seen. The orbits appear normal. There are no acute fractures of the calvaria or scalp swelling. Impression: No acute intracranial hemorrhage, no evidence of acute territorial infarction or other acute intracranial disease process. ACT 112: Negative or not required by law. Electronically signed by: Evan Ventura M.D. 05/20/2023 4:37 PM Discharge Plan Visit Data Chief Complaint: Weakness Stated Complaint: WEAKNESS ED Provider: Boby Norton Discharge Problem: Falls frequently, Head injury, Hypokalemia, Generalized weakness, Urinary tract infection, Acute dehydration, Elevated troponin I level Patient Disposition: Being Evaluated by Hospitalist Forms Stand Alone Forms: My [facility] Prescriptions Prescriptions: No Action colesevelam [WelChol] 625 mg tablet 625 mg PO TID Patient Comments: before meals , morning , noon and night Rx Instructions: PER [facility]-TAKE 1250 MG BIDM. montelukast [Singulair] 10 mg tablet 10 mg PO HS Prilosec OTC 20 mg tablet,delayed release (DR/EC) 20 mg PO BID mecobalamin (vitamin B12) 1,000 mcg tablet,disintegrating 1,000 mcg PO QAM Rx Instructions: place tablet under tongue and allow to dissolve for at least30 secs before swallowing desipramine 50 mg tablet 50 mg PO BID Rx Instructions: PER [facility]--TAKE 25 MG TID, THEN 50 AT HS. calcitriol 0.5 mcg capsule 0.5 mcg PO BID Qty: 60 5RF calcium carbonate [Calcium 600] 600 mg calcium (1,500 mg) tablet 1,200 mg PO TID Qty: 180 5RF potassium chloride 20 mEq tablet extended release 20 meq PO TID Qty: 90 3RF pregabalin 100 mg capsule 100 mg PO TID 30 Days Qty: 90 2RF Trelegy Ellipta 100-62.5-25 mcg blister with device 1 inh inhalation QAM Qty: 60 5RF Rx Instructions: USE ONE INHALATION EVERY MORNING albuterol sulfate 90 mcg/actuation aerosol powdr breath activated 2 inh INH Q6H PRN (Reason: Shortness Of Breath Or Wheezing) Qty: 1 3RF fexofenadine 60 mg tablet 60 mg PO BID penicillin V potassium 500 mg tablet 500 mg PO QID Cerovite Senior 0.4 mg-300 mcg- 250 mcg tablet 1 tab PO DAILY torsemide 20 mg tablet 20 mg PO BID potassium citrate-citric acid 1,100-334 mg/5 mL solution 15 ml PO BID Qty: 473 6RF Rx Instructions: please provide enough for a month ipratropium-albuterol 0.5 mg-3 mg(2.5 mg base)/3 mL Solution For Nebulization 3 ml INHALATION Q4H PRN (Reason: Shortness Of Breath Or Wheezing) Creon 24,000-76,000 -120,000 unit Capsule,Delayed Release(Dr/Ec) 4 cap PO TID Patient Comments: before meals valacyclovir 500 mg tablet 500 mg PO QAM ropinirole 0.5 mg tablet 0.5 mg PO HS escitalopram oxalate 20 mg tablet 20 mg PO QAM rosuvastatin 10 mg tablet 10 mg PO HS metolazone 2.5 mg Tablet 2.5 mg PO DAILY PRN (Reason: WT >199 LBS.) oxycodone-acetaminophen [Percocet] 5-325 mg Tablet 1 tab PO Q6H PRN (Reason: Pain) tamsulosin [Flomax] 0.4 mg Capsule 0.4 mg PO QAM cholecalciferol (vitamin D3) [Vitamin D3] 25 mcg (1,000 unit) Capsule 50 mcg PO QAM duloxetine 30 mg capsule,delayed release(DR/EC) 30 mg PO HS Gemtesa 75 mg tablet 75 mg PO QAM risperidone 2 mg Tablet 2 mg PO HS levothyroxine 88 mcg tablet 88 mcg PO QAM lorazepam 0.5 mg tablet 0.5 mg PO BID PRN (Reason: Anxiety) Referrals Referrals: Frederick Reynaga DO [Primary Care Provider] -
--- NOTE | 2023-05-20 15:59 | Electrocardiogram Report ---
Test Reason : Blood Pressure : / mmHG Vent. Rate : 054 BPM Atrial Rate : 042 BPM P-R Int : 000 ms QRS Dur : 170 ms QT Int : 570 ms P-R-T Axes : 000 -38 066 degrees QTc Int : 540 ms Ventricular-paced rhythm with intrinsic complexes Abnormal ECG When compared with ECG of 16-DEC-2022 16:31, Electronic ventricular pacemaker has replaced Sinus rhythm Confirmed by Boby Nevarez ([id number]) on 05/20/2023 3:59:22 PM Referred By: Confirmed By:Boby Nevarez
--- NOTE | 2023-05-20 16:39 | CT Scan Report ---
CT head/brain wo con CLINICAL HISTORY: fall Technique: Contiguous axial CT images of the head were acquired from the base of the skull to the bishnu pool without intravenous contrast administration. Images were viewed in brain, subdural and bone [employer]. Automated dose lowering techniques and/or adjustment according to patient size were utilized for this exam. Comparison: None available at the time of this dictation. Findings: Areas of decreased attenuation are present in the periventricular and subcortical white matter bilate rally consistent with small vessel ischemic disease. Generalized cerebral atrophy with commensurate e nlargement of the ventricles, sulci, and cisterns is also present. There is no acute intracranial hem orrhage or evidence of acute territorial infarction. No shift of the midline structures, mass effect, or extra-axial abnormalities are shown. Atherosclerotic calcifications are present in the intracran ial segments of the internal carotid arteries. Right maxillary sinus disease is again seen. The orbits appear normal. There are no acute fractures of the calvaria or scalp swelling. Impression: No acute intracranial hemorrhage, no evidence of acute territorial infarction or other acute intracra nial disease process. ACT 112: Negative or not required by law. Electronically signed by: Evan Ventura M.D. 05/20/2023 4:37 PM
--- NOTE | 2023-05-20 16:44 | CT Scan Report ---
CERVICAL SPINE CT CT DOSE: HISTORY: Neck pain. fall TECHNIQUE: Multiaxial CT images of the cervical spine were performed and reformatted in the sagittal and coronal plane without the use of contrast. A dose lowering technique was utilized adhering to th e principles of ALARA. COMPARISON: Cervical spine CT 12/07/2022. FINDINGS: No fractures. No subluxation. Prevertebral soft tissues and the C1-C2 interval are intact. No pneumothorax. Partially visualized right jugular catheter is again noted. IMPRESSION: No fractures within the cervical spine. ACT 112: Negative or not required by law. Electronically signed by: Noel Crenshaw M.D. 05/20/2023 4:42 PM
--- NOTE | 2023-05-20 16:51 | CT Scan Report ---
CT abd pelvis wo con CLINICAL HISTORY: flank pain, right TECHNIQUE: Helical axial images of the abdomen and pelvis were obtained. Automated dose lowering tech niques and/or adjustment according to patient size were utilized for this exam. This exam was perfor med without intravenous contrast. CT DOSE: 2266.84 mGy.cm COMPARISON: None available at the time of this dictation. FINDINGS: Lower chest: Bibasilar atelectasis versus scarring is seen. Liver: Unremarkable. No focal lesions are seen. Gallbladder and biliary tree: Patient is status post cholecystectomy. Physiologic prominence of the b iliary ducts is noted. Pancreas: Unremarkable, no focal lesions. Spleen: Unremarkable. Adrenals: Unremarkable. Kidneys and ureters: Diminutive right kidney is seen. Bilateral nonobstructive stones are seen. No hy dronephrosis is seen. Bladder: Unremarkable. Reproductive organs: Patient is status post hysterectomy. Bowel: A hiatal hernia is seen. Lymph nodes Retroperitoneal: Unremarkable. Pelvic: Unremarkable. Mesenteric: Unremarkable. Peritoneum: Normal. Vessels: Unremarkable. Abdominal wall: Ventral hernia is again seen. Bones: Unremarkable. IMPRESSION: No acute abnormality. Bilateral nephrolithiasis with atrophic right kidney again seen. Additional fin dings as above. ACT 112: Negative or not required by law. Electronically signed by: Evan Ventura M.D. 05/20/2023 4:49 PM
[2023-05-20 17:42] LABS: Basophils # (auto) 0.04 K/uL (0-0.2); Basophils % (auto) 0.6 %; Eosinophils # (auto) 0.09 K/uL (0-0.50); Eosinophils % (auto) 1.4 %; Hematocrit (blood only) 37.4 % (37.0-47.0); Hemoglobin 12.8 g/dl (12.0-16.0); Immature Granulocytes # (auto) 0.02 K/uL (0.01-0.20); Immature Granulocytes % (auto) 0.3 %; Lymphocytes # (auto) 1.37 K/uL (1.2-3.4); Lymphocytes % (auto) 21.3 %; Mean Corpuscular Hgb Conc 34.2 g/dL (32.0-36.0); Mean Corpuscular Volume 84.6 fL (80.0-100.0); Mean Platelet Volume 9.6 fL (9.4-12.4); Monocytes # (auto) 0.59 K/uL (0.11-0.59); Monocytes % (auto) 9.2 %; Neutrophils # (auto) 4.31 K/uL (1.40-6.50); Neutrophils % (auto) 67.2 %; Platelet Count 193 K/uL (130-400); RDW Coefficient of Variation 15.7 % (11.5-14.5); RDW Standard Deviation 48.3 fL (36.4-46.3); Red Blood Count 4.42 M/uL (4.20-5.40); White Blood Count 6.42 K/ul (4.8-10.8)
[2023-05-20] MEDS ORDERED: POTASSIUM CHLORIDE 10 MEQ TABCR PO STA (18:23)
[2023-05-20] MEDS ORDERED: POTASSIUM CHLORIDE / WTR 10 MEQ/100 ML PLCT IV ONE (18:23)
[2023-05-20 18:25] LABS: Albumin Globulin Ratio 1.5 (0.9-2); BUN Creatinine Ratio 45.8 (10-20); Bilirubin,Total 0.5 mg/dl (0.2-1.0); C Reactive Protein 0.72 mg/dl (0-0.5); Calcium 8.9 mg/dl (8.6-10.3); Creatinine Clr Calc Pharmacy 42.7 ml/min; Est GFR (African American) 54.1 ml/min; Est GFR (Non-African American) 46.7 ml/min; Globulin 2.7 gm/dl (2.5-4.0); Magnesium 2.2 mg/dl (1.7-2.4); Potassium 2.3 mmol/L (3.5-5.1); Total Protein 6.7 gm/dl (6.0-8.3); Troponin I High Sensitivity 22.4 pg/ml (0-14)
[2023-05-20] MEDS ORDERED: POTASSIUM CHLORIDE CRTAB 20 MEQ TABCR PO STA (20:21)
--- NOTE | 2023-05-20 20:35 | History & Physical Report ---
Date of Service May 20, 2023 Assessment & Plan (1) Falls frequently: Plan: 72-year-old female with past medical significant for chronic pancreatitis, hyperlipidemia, hypothyroidism, hyperparathyroidism, COPD, complex sleep apnea syndrome, as per patient not on oxygen or CPAP, chronic diastolic CHF, chronic kidney disease stage III, sick sinus syndrome status post pacemaker, peripheral vascular disease, left ventricular hypertrophy, chronic venous insufficiency, occlusion of left saphenous vein, renal disease, pulmonary hypertension, GERD, postsurgical malabsorption, obstructive uropathy, kidney stones, osteoarthritis, restless leg syndrome, dysgeusia, depression, generalized disorder, s/p partial gastrectomy who lives at home alone comes with frequent falls and found to have UTI and hypokalemia. Falls Generalized weakness Most likely from UTI and hypokalemia PT OT when stable UTI History of ESBL Received Unasyn in the ER Placed on IV cefepime based on previous cultures Follow the cultures Patient seems to have allergy to cephalosporins we will monitor We will monitor the response Hypokalemia Potassium of 2.3 We will replace and follow labs Patient is on torsemide and potassium supplements at home Chronic diastolic CHF Seems on torsemide 40 mg p.o. twice daily Currently placed on torsemide 20 mg p.o. twice daily Continue home potassium supplements Monitor for any volume overload as patient getting fluids Follow the labs Chronic kidney stage III Present creatinine 1.1 We will follow the labs History of chronic pancreatitis On Creon supplements Hypothyroid Continue home Synthyroid History of sick sinus syndrome status post pacemaker History of "kidney stones Follows with urology On potassium citrate Hyperlipidemia on statin and colesevelam Restless leg syndrome on ropinirole GERD on omeprazole Depression and anxiety On duloxetine, Lexapro, desipramine, risperidone History of COPD Continue home inhalers Peripheral neuropathy Pregabalin and duloxetine DVT prophylaxis Lovenox Disposition monitor in med telemetry Full code as per discussion with the patient History of Present Illness Chief Complaint: Weakness and falls Primary Care Provider: Frederick Reynaga DO 72-year-old female with past medical significant for chronic pancreatitis, hyperlipidemia, hypothyroidism, hyperparathyroidism, COPD, complex sleep apnea syndrome, as per patient not on oxygen or CPAP, chronic diastolic CHF, chronic kidney disease stage III, sick sinus syndrome status post pacemaker, peripheral vascular disease, left ventricular hypertrophy, chronic venous insufficiency, occlusion of left saphenous vein, renal disease, pulmonary hypertension, GERD, postsurgical malabsorption, obstructive uropathy, kidney stones, osteoarthritis, restless leg syndrome, dysgeusia, depression, generalized disorder, s/p partial gastrectomy who lives at home alone comes with falls. Patient says she fell last Thursday when she has to call EMS and at the time she did hit her head but no loss of consciousness. She had a headache for some time but after that she was fine. She fell again today and a person in the building helped her. Because of recurrent falls she came to the ER. Denies any fevers. Currently no headache. She was dizzy last Thursday but okay now. No earaches or runny nose or sore throat. No blurred visions or double vision, no cough. She is always short of breath. No chest pain. No nausea or vomiting. Says she has chronic back pain and sometimes radiates to the abdomen. Currently she has some abdominal discomfort left lower side. Normal bowel and bladder movements. Currently resting comfortably and hemodynamically stable Allergies Allergy/AdvReac Type Severity Reaction Status Date / Time bethanechol Allergy Intermediate RASH, Verified 04/27/23 12:57 "FEELS FUNNY" Cephalosporins Allergy Intermediate RASH, Verified 04/27/23 12:57 DIARRHEA levofloxacin Allergy Intermediate RASH,TURNED Verified 04/27/23 12:57 RED Sulfa (Sulfonamide Allergy Intermediate Generalized Verified 04/27/23 12:57 Antibiotics) Rash ertapenem Allergy Mild RASH Verified 04/27/23 12:57 clindamycin Allergy Unknown Unknown Verified 04/27/23 12:57 dipyridamole Allergy Unknown UNKNOWN Verified 04/27/23 12:57 droperidol Allergy Unknown Unknown Verified 04/27/23 12:57 promethazine Allergy Unknown UNKNOWN Verified 04/27/23 12:57 tobramycin Allergy Unknown UNKNOWN Verified 04/27/23 12:57 aspirin AdvReac Severe BLEEDING Verified 04/27/23 12:57 doxycycline AdvReac Severe severe Verified 04/27/23 12:57 Diarrhea, nausea metolazone AdvReac Severe ELECTROLYTE Verified 04/27/23 12:57 ISSUES bupropion AdvReac Intermediate NERVOUS Verified 04/27/23 12:57 REACTION cephalexin AdvReac Intermediate GI SYMPTOMS Verified 04/27/23 12:57 morphine AdvReac Intermediate NERVOUS Verified 04/27/23 12:57 REACTION TO IT nitrofurantoin AdvReac Intermediate Vomiting Verified 04/27/23 12:57 [From Macrobid] prochlorperazine AdvReac Intermediate NERVOUS Verified 04/27/23 12:57 REACTION tedizolid AdvReac Intermediate GI SYMPTOMS Verified 04/27/23 12:57 lamotrigine AdvReac Unknown tremors Verified 04/27/23 12:57 Home Medications Medication Instructions Recorded Confirmed Type colesevelam 625 mg tablet (WelChol) 625 mg PO TID 06/17/18 05/20/23 History montelukast 10 mg tablet 10 mg PO HS 06/17/18 05/20/23 History (Singulair) ipratropium 0.5 mg-albuterol 3 mg 3 ml inhalation Q4H PRN Shortness 05/05/19 05/20/23 History (2.5 mg base)/3 mL nebulization Of Breath Or Wheezing soln mjqzyg-punzixsr-gtdegvj 4 cap PO TID 05/05/19 05/20/23 History 24,000-76,000-120,000 unit capsule,delayed rel (Creon) omeprazole magnesium 20 mg 20 mg PO BID 05/17/19 05/20/23 History tablet,delayed release (Prilosec OTC) mecobalamin (vitamin B12) 1,000 1,000 mcg PO QAM 01/21/21 05/20/23 History mcg disintegrating tablet,sublingual risperidone 2 mg tablet 2 mg PO HS 02/27/21 05/20/23 History desipramine 50 mg tablet 50 mg PO BID 01/23/22 05/20/23 History levothyroxine 88 mcg tablet 88 mcg PO QAM 05/19/22 05/20/23 History lorazepam 0.5 mg tablet 0.5 mg PO BID PRN Anxiety 11/06/22 05/20/23 History cholecalciferol (vitamin D3) 25 50 mcg PO QAM 11/15/22 05/20/23 History mcg (1,000 unit) capsule (Vitamin D3) escitalopram oxalate 20 mg tablet 20 mg PO QAM 11/15/22 05/20/23 History metolazone 2.5 mg tablet 2.5 mg PO DAILY PRN WT >199 LBS. 11/15/22 05/20/23 History oxycodone-acetaminophen 5 mg-325 1 tab PO Q6H PRN Pain 11/15/22 05/20/23 History mg tablet (Percocet) ropinirole 0.5 mg tablet 0.5 mg PO HS 11/15/22 05/20/23 History rosuvastatin 10 mg tablet 10 mg PO HS 11/15/22 05/20/23 History tamsulosin 0.4 mg capsule (Flomax) 0.4 mg PO QAM 11/15/22 05/20/23 History valacyclovir 500 mg tablet 500 mg PO QAM 11/15/22 05/20/23 History calcitriol 0.5 mcg capsule 0.5 mcg PO BID #60 caps 12/21/22 05/20/23 Rx fexofenadine 60 mg tablet 60 mg PO BID 12/31/22 05/20/23 History mrpmimmt-mkt-duytl acid 0.4 1 tab PO DAILY 12/31/22 05/20/23 History mg-lycopene 300 mcg-lutein 250 mcg tablet (Cerovite Senior) potassium citrate-citric acid 15 ml PO BID #473 mL 12/31/22 05/20/23 Rx 1,100 mg-334 mg/5 mL oral solution torsemide 20 mg tablet 40 mg PO BID 12/31/22 05/20/23 History calcium carbonate 600 mg calcium 1,200 mg PO TID #180 tabs 01/01/23 05/20/23 Rx (1,500 mg) tablet (Calcium) albuterol sulfate 90 mcg/actuation 2 inh inhalation Q6H PRN Shortness 02/03/23 05/20/23 Rx breath activated powder inhaler Of Breath Or Wheezing #1 ea fluticasone fur. 100 mcg-umeclid 1 inh inhalation QAM #60 ea 02/03/23 05/20/23 Rx 62.5 mcg-vilant 25 mcg inhalat.powder (Trelegy Ellipta) potassium chloride 20 mEq 20 meq PO TID #90 tabs 03/30/23 05/20/23 Rx tablet,extended release duloxetine 30 mg capsule,delayed 30 mg PO HS 04/17/23 05/20/23 History release vibegron 75 mg tablet (Gemtesa) 75 mg PO QAM 04/17/23 05/20/23 History pregabalin 100 mg capsule 100 mg PO TID 30 days #90 caps 04/21/23 05/20/23 Rx cetirizine 10 mg tablet 10 mg PO DAILY PRN Other 05/20/23 05/20/23 History fluticasone propionate 50 1 spray intranasal DAILY PRN Other 05/20/23 05/20/23 History mcg/actuation nasal spray,suspension Past Med/Surg History Medical History Asthma Atherosclerosis of both lower extremities Chronic diastolic (congestive) heart failure Follows with [facility] cardiology Chronic kidney disease stage 3b Chronic sinusitis Chronic urinary tract infection Chronic venous insufficiency COPD (chronic obstructive pulmonary disease) "Well controlled" Depression GERD without esophagitis H/O concussion Remote hx "a long time ago" History of anemia History of DVT (deep vein thrombosis) Hyperlipidemia per records Hypothyroidism Incisional hernia Abdominal (from multiple surgeries/feeding tube) Kidney stones Lumbar transverse process fracture Pt reports lower back detioriating - can't lie flat/sleep on a chair MRSA (methicillin resistant staph aureus) culture positive Hx (Left wrist) Had 3 nasal swab and all negative (through [facility] per pt) Obesity Osteoporosis Pacemaker Medtr[employer], implanted 12/2022 (bradycardia) Pancreatic insufficiency chronic pancreatitis Peripheral neuropathy Port-A-Cath in place right side due to poor vascular access PUD (peptic ulcer disease) Had feeding tube for 28 years (has been removed for 11 years) Pulmonary hypertension mild per 07/[address] report PVC (premature ventricular contraction) Reactive hypoglycemia Right rotator cuff tear Secondary hyperparathyroidism Sepsis 05/[address] [facility], urosepsis 2/2 obstructing renal stone, S/P cysto/stent and ESWL Short bowel syndrome Sleep apnea complex sleep apnea, BIPAP (non-compliant) Urinary leakage Wrist injury Scar tissue surrounding remote wrist ORIF several years ago resulting in intermittent inflammation per pt Surgical History H/O shoulder surgery RT arthroscopy 05/28/2021: LMA#4 atraumatic x 1 + PNB. Anesthesia postop progress note: "Pt denies SOB at this time. Block is functioning well. Vital signs stable and appropriate. Oxygenating well considering block placement and her comorbidities. Plan to discharge home with IS." History of appendectomy History of cardiac cath 08/2019 ([facility])- essentially normal coronary arteries angiographically, no stents History of cholecystectomy History of colonoscopy History of cystoscopy multiple History of esophageal dilatation History of esophagogastroduodenoscopy (EGD) History of gastrointestinal surgery multiple History of joint replacement Rt thumb History of knee replacement procedure of right knee History of open reduction and internal fixation (ORIF) procedure left wrist + manipulation (01/2018) and I&D (10/2019) History of partial gastrectomy History of prior ablation treatment Right LE in January 2020 and left LE 04/18/20 History of sinus surgery History of tonsillectomy and adenoidectomy History of total abdominal hysterectomy and bilateral salpingo-oophorectomy S/P right rotator cuff repair S/P ureteral stent placement Status post laser lithotripsy of ureteral calculus Family History Mother Family history of diabetes mellitus Sister Family history of diabetes mellitus Family history of breast cancer Father Esophageal cancer Other Family history non-contributory No family history of adverse response to anesthesia Social History Smoking Status: Never smoker Second Hand Exposure: No; Do You Dip or Chew Tobacco: No; Tobacco Cessation Education Requested by Patient: No Hx Alcohol Use: Yes Alcohol type: beer Hx Substance Use: No Preferred Language: [place]an Communication Ability: Effective Visual Impairment: No Limitations Home Economics Expert Required: Yes Beliefs That Will Affect Care: Voodoo Voodoo Beliefs: Protestant marital status: Single Current Living Situation: Alone Current Living Situation Comment: In an apartment behind [facility] How many Children do You have: 0 Other Information That Helps Us Care for You: No Feels Safe at Home: Yes Safety Concerns: Feels Safe At This Time Assistive Devices: Denture - Upper, Denture - Lower, Glasses and Walker Review of Systems Review of Systems: All systems reviewed & are unremarkable except as noted in Subjective Physical Exam Physical Exam: General- Not in distress Head- atraumatic Eyes- PERRL ENT- oropharynx clear Neck- supple, no JVD, Lungs- clear to auscultation bilaterally, no wheezing or crackles Heart- regular rate and rhythm; no murmur, no gallop. Abdomen- normal bowel sounds, soft, nontender, no distension. Extremities- mild pretibial edema, no erythema seen. Neuro- alert, oriented x 3; PERRL, EOMI; no facial palsy; no dysarthria;Non foacl. Skin- warm & dry Results & Data Results & Data Vital Signs (Past 12 Hours) Vital Signs Temp Pulse Pulse Resp BP BP Pulse Ox 05/20/23 19:16 63 18 143/67 H 05/20/23 19:00 84 23 141/77 H 05/20/23 18:12 56 L 12 133/71 05/20/23 18:00 60 16 133/71 05/20/23 17:30 77 14 05/20/23 16:35 58 L 19 113/62 96 05/20/23 16:12 58 L 05/20/23 15:58 98 05/20/23 15:58 59 L 12 132/61 98 05/20/23 13:18 36.5 C 55 L 18 103/57 L 98 O2 Del Method 05/20/23 19:16 05/20/23 19:00 05/20/23 18:12 05/20/23 18:00 05/20/23 17:30 05/20/23 16:35 05/20/23 16:12 05/20/23 15:58 Room Air 05/20/23 15:58 Room Air 05/20/23 13:18 Room Air Diagnostic Findings Laboratory Results WBC 6.42 K/ul (4.8-10.8) 05/20/23 17:18 RBC 4.42 M/uL (4.20-5.40) 05/20/23 17:18 Hgb 12.8 g/dl (12.0-16.0) 05/20/23 17:18 Hct 37.4 % (37.0-47.0) 05/20/23 17:18 MCV 84.6 fL (80.0-100.0) 05/20/23 17:18 MCH 29.0 pg (25.0-34.0) 05/20/23 17:18 MCHC 34.2 g/dL (32.0-36.0) 05/20/23 17:18 RDW Std Deviation 48.3 fL (36.4-46.3) H 05/20/23 17:18 RDW Coeff of David 15.7 % (11.5-14.5) H 05/20/23 17:18 Plt Count 193 K/uL (130-400) 05/20/23 17:18 MPV 9.6 fL (9.4-12.4) 05/20/23 17:18 Immature Gran % (Auto) 0.3 % 05/20/23 17:18 Neut % (Auto) 67.2 % 05/20/23 17:18 Lymph % (Auto) 21.3 % 05/20/23 17:18 [place] % (Auto) 9.2 % 05/20/23 17:18 Eos % (Auto) 1.4 % 05/20/23 17:18 Baso % (Auto) 0.6 % 05/20/23 17:18 Neut # (Auto) 4.31 K/uL (1.40-6.50) 05/20/23 17:18 Lymph # (Auto) 1.37 K/uL (1.2-3.4) 05/20/23 17:18 [place] # (Auto) 0.59 K/uL (0.11-0.59) 05/20/23 17:18 Eos # (Auto) 0.09 K/uL (0-0.50) 05/20/23 17:18 Baso # (Auto) 0.04 K/uL (0-0.2) 05/20/23 17:18 Immature Gran # (Auto) 0.02 K/uL (0.01-0.20) 05/20/23 17:18 Sodium 135 mmol/L (136-145) L 05/20/23 17:18 Potassium 2.3 mmol/L (3.5-5.1) L* 05/20/23 17:18 Chloride 93 mmol/L (98-107) L 05/20/23 17:18 Carbon Dioxide 32 mmol/L (21-32) 05/20/23 17:18 Anion Gap 10 (3-11) 05/20/23 17:18 BUN 54 mg/dl (6-23) H 05/20/23 17:18 Creatinine 1.18 mg/dl (0.6-1.2) 05/20/23 17:18 Est Cr Clr Drug Dosing 42.7 ml/min 05/20/23 17:18 Est GFR ( Amer) 54.1 ml/min 05/20/23 17:18 Est GFR (Non-Af Amer) 46.7 ml/min 05/20/23 17:18 BUN/Creatinine Ratio 45.8 (10-20) H 05/20/23 17:18 Glucose 112 mg/dl (70-99(Fasting)) H 05/20/23 17:18 Calcium 8.9 mg/dl (8.6-10.3) 05/20/23 17:18 Magnesium 2.2 mg/dl (1.7-2.4) 05/20/23 17:18 Total Bilirubin 0.5 mg/dl (0.2-1.0) 05/20/23 17:18 AST 29 U/L (13-39) 05/20/23 17:18 ALT 19 U/L (7-52) 05/20/23 17:18 Alkaline Phosphatase 76 U/L (34-104) 05/20/23 17:18 Troponin I High Sens 22.4 pg/ml (0-14) H 05/20/23 17:18 C-Reactive Protein 0.72 mg/dl (0-0.5) H 05/20/23 17:18 Total Protein 6.7 gm/dl (6.0-8.3) 05/20/23 17:18 Albumin 4.0 gm/dl (3.4-5.0) 05/20/23 17:18 Globulin 2.7 gm/dl (2.5-4.0) 05/20/23 17:18 Albumin/Globulin Ratio 1.5 (0.9-2) 05/20/23 17:18 Procalcitonin < 0.05 ng/ml (0-0.5) 05/20/23 17:27 TSH 2.050 uIu/ml (0.300-4.500) 05/20/23 17:18 Urine Color Yellow 05/20/23 14:25 Urine Appearance Clear (Clear) 05/20/23 14:25 Urine pH 7.0 (4.5-7.5) 05/20/23 14:25 Ur Specific [place] 1.007 (1.000-1.030) 05/20/23 14:25 Urine Protein Negative (Negative) 05/20/23 14:25 Urine Glucose (UA) Negative (Negative) 05/20/23 14:25 Urine Ketones Negative (Negative) 05/20/23 14:25 Urine Blood Negative (Negative) 05/20/23 14:25 Urine Nitrite Positive (Negative) A 05/20/23 14:25 Urine Bilirubin Negative (Negative) 05/20/23 14:25 Urine Urobilinogen Negative (Negative) 05/20/23 14:25 Ur Leukocyte Esterase 2+ (Negative) H 05/20/23 14:25 Urine WBC (Auto) >30 /hpf (0-5) H 05/20/23 14:25 Urine RBC (Auto) 0-4 /hpf (0-4) 05/20/23 14:25 U Hyaline Cast (Auto) 0 /lpf (0-5) 05/20/23 14:25 U Epithel Cells (Auto) 5-10 /lpf (0-5) H 05/20/23 14:25 Urine Bacteria (Auto) Negative (Negative) 05/20/23 14:25 SARS-CoV-2, RNA, NAAT NEGATIVE (NEGATIVE) 05/20/23 16:27 Impressions Chest X-Ray 05/20/23 13:23 XR chest 1V not portable CLINICAL HISTORY: weakness TECHNIQUE: Single frontal radiograph of the chest was obtained. Comparison: Comparison is made to chest radiograph 12/17/2022 FINDINGS: A port catheter is seen. Cardiomegaly is noted. Reticular interstitial opacities are seen. No evidence of pleural effusion or pneumothorax. IMPRESSION: No acute chest disease. ACT 112: Negative or not required by law. Electronically signed by: Evan Ventura M.D. 05/20/2023 2:27 PM Abdomen/Pelvis CT 05/20/23 15:49 CT abd pelvis wo con CLINICAL HISTORY: flank pain, right TECHNIQUE: Helical axial images of the abdomen and pelvis were obtained. Automated dose lowering techniques and/or adjustment according to patient size were utilized for this exam. This exam was performed without intravenous contrast. CT DOSE: 2266.84 mGy.cm COMPARISON: None available at the time of this dictation. FINDINGS: Lower chest: Bibasilar atelectasis versus scarring is seen. Liver: Unremarkable. No focal lesions are seen. Gallbladder and biliary tree: Patient is status post cholecystectomy. Physiologic prominence of the biliary ducts is noted. Pancreas: Unremarkable, no focal lesions. Spleen: Unremarkable. Adrenals: Unremarkable. Kidneys and ureters: Diminutive right kidney is seen. Bilateral nonobstructive stones are seen. No hydronephrosis is seen. Bladder: Unremarkable. Reproductive organs: Patient is status post hysterectomy. Bowel: A hiatal hernia is seen. Lymph nodes Retroperitoneal: Unremarkable. Pelvic: Unremarkable. Mesenteric: Unremarkable. Peritoneum: Normal. Vessels: Unremarkable. Abdominal wall: Ventral hernia is again seen. Bones: Unremarkable. IMPRESSION: No acute abnormality. Bilateral nephrolithiasis with atrophic right kidney again seen. Additional findings as above. ACT 112: Negative or not required by law. Electronically signed by: Evan Ventura M.D. 05/20/2023 4:[address] 05/20/23 15:[address] DOSE: HISTORY: Neck pain. fall TECHNIQUE: Multiaxial CT images of the cervical spine were performed and reformatted in the sagittal and coronal plane without the use of contrast. A dose lowering technique was utilized adhering to the principles of ALARA. COMPARISON: Cervical spine CT 12/07/2022. FINDINGS: No fractures. No subluxation. Prevertebral soft tissues and the C1-C2 interval are intact. No pneumothorax. Partially visualized right jugular catheter is again noted. IMPRESSION: No fractures within the cervical spine. ACT 112: Negative or not required by law. Electronically signed by: Noel Crenshaw M.D. 05/20/2023 4:[address] 05/20/23 15:49 CT head/brain wo con CLINICAL HISTORY: fall Technique: Contiguous axial CT images of the head were acquired from the base of the skull to the vertex without intravenous contrast administration. Images were viewed in brain, subdural and bone windows. Automated dose lowering techniques and/or adjustment according to patient size were utilized for this exam. Comparison: None available at the time of this dictation. Findings: Areas of decreased attenuation are present in the periventricular and subcortical white matter bilaterally consistent with small vessel ischemic disease. Generalized cerebral atrophy with commensurate enlargement of the ventricles, sulci, and cisterns is also present. There is no acute intracranial hemorrhage or evidence of acute territorial infarction. No shift of the midline structures, mass effect, or extra-axial abnormalities are shown. Atherosclerotic calcifications are present in the intracranial segments of the internal carotid arteries. Right maxillary sinus disease is again seen. The orbits appear normal. There are no acute fractures of the calvaria or scalp swelling. Impression: No acute intracranial hemorrhage, no evidence of acute territorial infarction or other acute intracranial disease process. ACT 112: Negative or not required by law. Electronically signed by: Evan Ventura M.D. 05/20/2023 4:37 PM ECG Additional Comments: ECG ventricular precipitin with intrinsic complexes at rate of 54 Code Status & VTE Plan VTE Prophylaxis Plan VTE Prophylaxis will be ordered: Yes
[2023-05-20] MEDS ORDERED: POLYETHYLENE (MIRALAX) 17 GM PACK PO PRN (22:38)
[2023-05-20] MEDS ORDERED: oxyCODONE/ACETAMINOPHEN 5mg/325mg TAB PO PRN (22:38)
[2023-05-20] MEDS ORDERED: FLUTICASONE PROPIONATE NA SPR 16 GM BTL PRN (22:38)
[2023-05-20] MEDS ORDERED: NITROGLYCERIN SL 0.4 MG/TAB TAB SL PRN (22:38)
[2023-05-20] MEDS ORDERED: CETIRIZINE HCL 10 MG TABLET PO PRN (22:38)
[2023-05-20] MEDS ORDERED: LORazepam 0.5 MG TAB PO PRN (22:38)
[2023-05-20] MEDS ORDERED: ALBUT/IPRATROP 3MG/0.5MG NEB 3 ML VIAL INH PRN (22:38)
[2023-05-20] MEDS ORDERED: ALBUTEROL HFA 8 GM INHALER INH PRN (22:52)
[2023-05-20] MEDS ORDERED: [UNRECOGNIZED DRUG - OTHER] PO SCH (23:00)
[2023-05-21] MEDS: CALCIUM CARBONATE 1250MG TAB PO SCH ×4 (00:47→21:46)
[2023-05-21] MEDS: CEFEPIME 2,000 MG in SYRINGE 0 ML IV SCH ×3 (00:47→22:04)
[2023-05-21] MEDS: [UNRECOGNIZED DRUG - OTHER] PO SCH ×3 (00:48→21:49)
[2023-05-21] MEDS: ENOXAPARIN INJ 40 MG/0.4 ML SYR SQ SCH ×2 (00:48→21:47)
[2023-05-21] MEDS: DULoxetine HCL 30 MG CAP PO SCH ×2 (00:49→21:47)
[2023-05-21] MEDS: ADVANCED PROBIOTIC 1250 MG CAPSULE PO SCH ×3 (00:51→21:45)
[2023-05-21] MEDS: CALCITRIOL 0.25 MCG CAPSULE PO SCH ×3 (00:52→21:44)
[2023-05-21] MEDS: FEXOFENADINE 60 MG TAB PO SCH ×3 (00:53→21:45)
[2023-05-21] MEDS: PANTOprazole 40 MG TAB PO SCH ×3 (00:53→21:46)
[2023-05-21] MEDS: PREGABALIN 50 MG CAP PO SCH ×4 (00:53→21:57)
[2023-05-21] MEDS: TORSEMIDE 20 MG TAB PO SCH ×3 (00:53→21:46)
[2023-05-21] MEDS: risperiDONE 2 MG TABLET PO SCH ×2 (00:54→21:45)
[2023-05-21] MEDS: MONTELUKAST SODIUM 10 MG TABLET PO SCH ×2 (00:55→21:47)
[2023-05-21] MEDS: ROSUVASTATIN CALCIUM 10 MG TAB PO SCH ×2 (00:56→21:47)
[2023-05-21] MEDS: rOPINIRole HCL 0.25 MG TABLET PO SCH ×2 (00:57→21:45)
[2023-05-21] MEDS: POTASSIUM CHLORIDE CRTAB 20 MEQ TABCR PO SCH ×4 (00:57→21:57)
[2023-05-21] MEDS: DESIPRAMINE HCL 50 MG TAB PO SCH ×3 (00:58→21:47)
[2023-05-21] MEDS: NSS + 20MEQ KCL 20 MEQ/1,000 ML BAG IV SCH ×2 (01:52→23:19)
[2023-05-21] MEDS: POTASSIUM CHLORIDE / WTR 10 MEQ/100 ML PLCT IV SCH ×4 (02:16→08:50)
[2023-05-21] MEDS ORDERED: HEPARIN 100 UNIT/ML 5ML FLUSH FLUSH PRN (05:19)
[2023-05-21] MEDS: LEVOTHYROXINE SODIUM 88 MCG TABLET PO SCH (05:59)
[2023-05-21 08:53] LABS: Basophils # (auto) 0.05 K/uL (0-0.2); Basophils % (auto) 0.9 %; Eosinophils # (auto) 0.06 K/uL (0-0.50); Eosinophils % (auto) 1.1 %; Hematocrit (blood only) 38.6 % (37.0-47.0); Immature Granulocytes # (auto) 0.02 K/uL (0.01-0.20); Immature Granulocytes % (auto) 0.4 %; Lymphocytes # (auto) 0.79 K/uL (1.2-3.4); Lymphocytes % (auto) 14.9 %; Mean Corpuscular Hemoglobin 28.4 pg (25.0-34.0); Mean Corpuscular Hgb Conc 33.7 g/dL (32.0-36.0); Mean Corpuscular Volume 84.3 fL (80.0-100.0); Mean Platelet Volume 10.6 fL (9.4-12.4); Monocytes # (auto) 0.49 K/uL (0.11-0.59); Monocytes % (auto) 9.2 %; Neutrophils # (auto) 3.89 K/uL (1.40-6.50); Neutrophils % (auto) 73.5 %; Platelet Count 206 K/uL (130-400); RDW Coefficient of Variation 15.9 % (11.5-14.5); RDW Standard Deviation 48.9 fL (36.4-46.3); Red Blood Count 4.58 M/uL (4.20-5.40)
[2023-05-21] MEDS: UMECLIDINIUM/VILANTEROL 62.5/25MCG 7 PUFFS/INHALER INH SCH (08:59)
[2023-05-21] MEDS ORDERED: [UNRECOGNIZED DRUG - OTHER] PO SCH (09:00)
[2023-05-21] MEDS ORDERED: NON-FORMULARY MEDICATION (Fluticasone-Umeclidin-Vilanter [Trelegy Ellipta] 100-62.5-25 mcg INH SCH (09:00)
[2023-05-21] MEDS: CEROVITE ADV FORMULA TAB PO SCH (09:00)
[2023-05-21] MEDS: CYANOCOBALAMIN (B-12) 500 MCG TABLET PO SCH (09:00)
[2023-05-21] MEDS: TAMSULOSIN HCL 0.4 MG CAP PO SCH (09:00)
[2023-05-21] MEDS: valACYclovir HCL 500 MG TABLET PO SCH (09:00)
[2023-05-21] MEDS: CHOLECALCIFEROL 1,000 UNITS 25 MCG TAB PO SCH (09:01)
[2023-05-21] MEDS: VIBEGRON 75 MG TAB PO SCH (09:01)
[2023-05-21] MEDS: ESCITALOPRAM OXALATE 20 MG TAB PO SCH (09:01)
[2023-05-21] MEDS: FLUTICASONE FUROATE 100MCG 14 PUFFS/INHALER INH SCH (09:02)
[2023-05-21 10:15] LABS: Calcium 9.5 mg/dl (8.6-10.3); Magnesium 1.9 mg/dl (1.7-2.4)
[2023-05-21 10:17] LABS: BUN Creatinine Ratio 48.4 (10-20); Creatinine Clr Calc Pharmacy 54.2 ml/min; Est GFR (African American) 72.2 ml/min; Est GFR (Non-African American) 62.3 ml/min; Phosphorus 2.8 mg/dl (2.5-4.9)
--- NOTE | 2023-05-21 14:41 | Hospitalist Progress Note ---
Date of Service May 21, 2023 Assessment & Plan (1) Falls frequently: Plan: 72-year-old female with past medical significant for chronic pancreatitis, hyperlipidemia, hypothyroidism, hyperparathyroidism, COPD, complex sleep apnea syndrome, as per patient not on oxygen or CPAP, chronic diastolic CHF, chronic kidney disease stage III, sick sinus syndrome status post pacemaker, peripheral vascular disease, left ventricular hypertrophy, chronic venous insufficiency, occlusion of left saphenous vein, renal disease, pulmonary hypertension, GERD, postsurgical malabsorption, obstructive uropathy, kidney stones, osteoarthritis, restless leg syndrome, dysgeusia, depression, generalized disorder, s/p partial gastrectomy who lives at home alone comes with frequent falls and found to have UTI and hypokalemia. Falls Generalized weakness Most likely from UTI and hypokalemia PT OT, orth vitals. UTI History of ESBL Received Unasyn in the ER Placed on IV cefepime based on previous cultures, continue Follow the cultures Patient seems to have allergy to cephalosporins we will monitor We will monitor the response Hypokalemia Potassium of 2.3, We will replace and follow labs Patient is on torsemide and potassium supplements at home Chronic diastolic CHF Seems on torsemide 40 mg p.o. twice daily Currently placed on torsemide 20 mg p.o. twice daily --> gradually uptitrate to home dose, follow ortho vitals. Pt received fluids at presentation. Continue home potassium supplements Monitor for any volume overload Follow the labs Chronic kidney stage III Present creatinine 1.1 We will follow the labs History of chronic pancreatitis On Creon supplements Hypothyroid Continue home Synthyroid History of sick sinus syndrome status post pacemaker History of "kidney stones Follows with urology On potassium citrate Hyperlipidemia on statin and colesevelam Restless leg syndrome on ropinirole GERD on omeprazole Depression and anxiety On duloxetine, Lexapro, desipramine, risperidone History of COPD Continue home inhalers Peripheral neuropathy Pregabalin and duloxetine DVT prophylaxis Lovenox Disposition monitor in med telemetry. pt/ot, cm to asssis. Full code Admission and Anticipated Discharge Date Admission Date: May 20, 2023 Subjective Patient seen and examined at bedside as a follow-up of falls, UTI, hypokalemia. Patient was lying in bed, on room air, NAD, reports no new acute event overnight, denies any loss of consciousness during fall, denies any chest pain or lightheadedness or feeling of warmth just prior to fall. Patient reports that she was reaching out to her walker when she lost balance and fell. Physical Exam Physical Exam: GENERAL: Alert and oriented x3. NAD, on RA. HEENT: No pallor, no icterus. Pupils equal, round and reactive to light. Oral mucosa moist. NECK: No JVD, no neck masses. Rt chest w/ A port - no signs of infection. HEART: S1 and S2 heard. Regular rate and rhythm. No murmur, no gallop. RESPIRATORY SYSTEM: Normal AP diameter. No accessory muscle use. No wheezing, no crackles. ABDOMEN: Soft, bowel sounds present, nontender, no distention. CENTRAL NERVOUS SYSTEM: No facial droop. Speech is clear. Obeys simple commands. Moves extremities. EXTREMITIES: No edema, no erythema seen. Results & Data Results & Data Vital Signs (Past 12 Hours) Vital Signs Temp Pulse Pulse Resp BP BP Pulse Ox 05/21/23 11:58 05/21/23 11:19 36.5 C 62 18 98/57 L 96 05/21/23 07:58 36.4 C L 61 19 109/74 96 05/21/23 07:06 64 05/21/23 02:40 60 05/21/23 03:19 Pulse Ox O2 Del Method O2 Del Method 05/21/23 11:58 Room Air 05/21/23 11:19 Room Air 05/21/23 07:58 Room Air 05/21/23 07:06 05/21/23 02:40 05/21/23 03:19 92 Room Air
[2023-05-22] MEDS: ACETAMINOPHEN 325 MG TAB PO PRN ×3 (02:39→13:29)
[2023-05-22] MEDS: LEVOTHYROXINE SODIUM 88 MCG TABLET PO SCH (05:53)
[2023-05-22 08:16] LABS: Hematocrit (blood only) 41.4 % (37.0-47.0); Hemoglobin 13.4 g/dl (12.0-16.0); Mean Corpuscular Hemoglobin 28.5 pg (25.0-34.0); Mean Corpuscular Hgb Conc 32.4 g/dL (32.0-36.0); Mean Corpuscular Volume 88.1 fL (80.0-100.0); Mean Platelet Volume 10.2 fL (9.4-12.4); Platelet Count 196 K/uL (130-400); RDW Coefficient of Variation 16.8 % (11.5-14.5); RDW Standard Deviation 53.8 fL (36.4-46.3); White Blood Count 5.33 K/ul (4.8-10.8)
[2023-05-22 08:22] LABS: BUN Creatinine Ratio 29.7 (10-20); Calcium 9.5 mg/dl (8.6-10.3); Creatinine Clr Calc Pharmacy 42.7 ml/min; Est GFR (African American) 54.1 ml/min; Est GFR (Non-African American) 46.7 ml/min; Magnesium 1.8 mg/dl (1.7-2.4); Phosphorus 3.3 mg/dl (2.5-4.9); Potassium 3.9 mmol/L (3.5-5.1)
[2023-05-22] MEDS: POTASSIUM CHLORIDE CRTAB 20 MEQ TABCR PO SCH ×2 (08:40→13:20)
[2023-05-22] MEDS: valACYclovir HCL 500 MG TABLET PO SCH (08:41)
[2023-05-22] MEDS: TAMSULOSIN HCL 0.4 MG CAP PO SCH (08:41)
[2023-05-22] MEDS: ESCITALOPRAM OXALATE 20 MG TAB PO SCH (08:41)
[2023-05-22] MEDS: PANTOprazole 40 MG TAB PO SCH (08:42)
[2023-05-22] MEDS: FEXOFENADINE 60 MG TAB PO SCH (08:42)
[2023-05-22] MEDS: CYANOCOBALAMIN (B-12) 500 MCG TABLET PO SCH (08:42)
[2023-05-22] MEDS: CALCITRIOL 0.25 MCG CAPSULE PO SCH (08:42)
[2023-05-22] MEDS: CEROVITE ADV FORMULA TAB PO SCH (08:42)
[2023-05-22] MEDS: CHOLECALCIFEROL 1,000 UNITS 25 MCG TAB PO SCH (08:42)
[2023-05-22] MEDS: VIBEGRON 75 MG TAB PO SCH (08:43)
[2023-05-22] MEDS: DESIPRAMINE HCL 50 MG TAB PO SCH (08:43)
[2023-05-22] MEDS: TORSEMIDE 20 MG TAB PO SCH (08:43)
[2023-05-22] MEDS: CALCIUM CARBONATE 1250MG TAB PO SCH ×2 (08:43→13:21)
[2023-05-22] MEDS: ADVANCED PROBIOTIC 1250 MG CAPSULE PO SCH (08:43)
[2023-05-22] MEDS: FLUTICASONE FUROATE 100MCG 14 PUFFS/INHALER INH SCH (08:44)
[2023-05-22] MEDS: [UNRECOGNIZED DRUG - OTHER] PO SCH (08:44)
[2023-05-22] MEDS: UMECLIDINIUM/VILANTEROL 62.5/25MCG 7 PUFFS/INHALER INH SCH (08:44)
[2023-05-22] MEDS: PREGABALIN 50 MG CAP PO SCH ×2 (08:47→13:20)
[2023-05-22] MEDS: CEFEPIME 2,000 MG in SYRINGE 0 ML IV SCH (10:33)
--- NOTE | 2023-05-22 14:40 | Discharge Summary ---
Date of Service May 22, 2023 Admission HPI Per Admitting Provider 72-year-old female with past medical significant for chronic pancreatitis, hyperlipidemia, hypothyroidism, hyperparathyroidism, COPD, complex sleep apnea syndrome, as per patient not on oxygen or CPAP, chronic diastolic CHF, chronic kidney disease stage III, sick sinus syndrome status post pacemaker, peripheral vascular disease, left ventricular hypertrophy, chronic venous insufficiency, occlusion of left saphenous vein, renal disease, pulmonary hypertension, GERD, postsurgical malabsorption, obstructive uropathy, kidney stones, osteoarthritis, restless leg syndrome, dysgeusia, depression, generalized disorder, s/p partial gastrectomy who lives at home alone comes with falls. Patient says she fell last Thursday when she has to call EMS and at the time she did hit her head but no loss of consciousness. She had a headache for some time but after that she was fine. She fell again today and a person in the building helped her. Because of recurrent falls she came to the ER. Denies any fevers. Currently no headache. She was dizzy last Thursday but okay now. No earaches or runny nose or sore throat. No blurred visions or double vision, no cough. She is always short of breath. No chest pain. No nausea or vomiting. Says she has chronic back pain and sometimes radiates to the abdomen. Currently she has some abdominal discomfort left lower side. Normal bowel and bladder movements. Currently resting comfortably and hemodynamically stable Admission Exam Per Admitting Provider General- Not in distress Head- atraumatic Eyes- PERRL ENT- oropharynx clear Neck- supple, no JVD, Lungs- clear to auscultation bilaterally, no wheezing or crackles Heart- regular rate and rhythm; no murmur, no gallop. Abdomen- normal bowel sounds, soft, nontender, no distension. Extremities- mild pretibial edema, no erythema seen. Neuro- alert, oriented x 3; PERRL, EOMI; no facial palsy; no dysarthria;Non foacl. Skin- warm & dry Principal Diagnosis UTI Discharge Exam General: Alert, oriented. No acute distress, sitting at the side of the bed. Skin: No noted rashes or bruises Psych: Appropriate mood and affect HEENT: NC/AT CV: RRR, Normal s1, s2. No murmurs appreciated Resp: Breath sounds clear bilaterally, no increased effort of breathing. Abdomen: Soft, nontender, nondistended. No guarding. No organomegaly appreciated. Extremities: No edema in lower extremities bilaterally. Discharge Data Allergies Allergy/AdvReac Type Severity Reaction Status Date / Time bethanechol Allergy Intermediate RASH, Verified 04/27/23 12:57 "FEELS FUNNY" Cephalosporins Allergy Intermediate RASH, Verified 04/27/23 12:57 DIARRHEA levofloxacin Allergy Intermediate RASH,TURNED Verified 04/27/23 12:57 RED Sulfa (Sulfonamide Allergy Intermediate Generalized Verified 04/27/23 12:57 Antibiotics) Rash ertapenem Allergy Mild RASH Verified 04/27/23 12:57 clindamycin Allergy Unknown Unknown Verified 04/27/23 12:57 dipyridamole Allergy Unknown UNKNOWN Verified 04/27/23 12:57 droperidol Allergy Unknown Unknown Verified 04/27/23 12:57 promethazine Allergy Unknown UNKNOWN Verified 04/27/23 12:57 tobramycin Allergy Unknown UNKNOWN Verified 04/27/23 12:57 aspirin AdvReac Severe BLEEDING Verified 04/27/23 12:57 doxycycline AdvReac Severe severe Verified 04/27/23 12:57 Diarrhea, nausea metolazone AdvReac Severe ELECTROLYTE Verified 04/27/23 12:57 ISSUES bupropion AdvReac Intermediate NERVOUS Verified 04/27/23 12:57 REACTION cephalexin AdvReac Intermediate GI SYMPTOMS Verified 04/27/23 12:57 morphine AdvReac Intermediate NERVOUS Verified 04/27/23 12:57 REACTION TO IT nitrofurantoin AdvReac Intermediate Vomiting Verified 04/27/23 12:57 [From Macrobid] prochlorperazine AdvReac Intermediate NERVOUS Verified 04/27/23 12:57 REACTION tedizolid AdvReac Intermediate GI SYMPTOMS Verified 04/27/23 12:57 lamotrigine AdvReac Unknown tremors Verified 04/27/23 12:57 Consultations 05/20/23 19:31 ED Decision to Admit Stat Ordered Studies 05/20/23 15:49 CT abd pelvis wo con Stat CT cervical spine wo con Stat CT head/brain wo con Stat Hospital Course (1) Falls frequently: 72yoF with PMHx significant for chronic pancreatitis, hyperlipidemia, hypothyroidism, hyperparathyroidism, COPD, complex sleep apnea syndrome, as per patient not on oxygen or CPAP, chronic diastolic CHF, chronic kidney disease stage III, sick sinus syndrome status post pacemaker, peripheral vascular disease, left ventricular hypertrophy, chronic venous insufficiency, occlusion of left saphenous vein, renal disease, pulmonary hypertension, GERD, postsurgical malabsorption, obstructive uropathy, kidney stones, osteoarthritis, restless leg syndrome, dysgeusia, depression, generalized disorder, s/p partial gastrectomy admitted with frequent falls and found to have UTI and hypokalemia. Falls Generalized weakness, in setting of UTI and hypokalemia PT OT- pt discharged home with home PT/OT services UTI History of ESBL Received Unasyn in the ER, received IV cefepime based on previous cultures Pt with many antibiotic allergies, tolerated cefepime for 2 days. Discharged on cefdinir 300mg BID for an additional 3 days. Urine culture with NGTD. Hypokalemia Potassium of 2.3, repleted Patient is on torsemide and potassium supplements at home, continue. Chronic diastolic CHF On torsemide 40 mg p.o. twice daily Continue home potassium supplements Chronic kidney stage III Stable History of chronic pancreatitis On Creon supplements Hypothyroid Continue home Synthroid History of sick sinus syndrome status post pacemaker Stable History of "kidney stones Follows with urology On potassium citrate Hyperlipidemia on statin and colesevelam, continue Restless leg syndrome on ropinirole, continue GERD on omeprazole, continue Depression and anxiety On duloxetine, Lexapro, desipramine, risperidone Continue History of COPD Continue home inhalers Peripheral neuropathy Pregabalin and duloxetine Continue (2) Hypokalemia: (3) Generalized weakness: (4) Urinary tract infection: Home Health Attestation I certify that this patient is under my care and that I, or a physicians assistant coach working with me, had a face to-face encounter that meets the home health [id number] encounter requirements with this patient. The encounter with the patient was in whole, or in part, for the following medical condition, which is the primary reason for home health care (list medical condition): weakness, falls, UTI, hypokalemia I certify that, based on my findings, the following services are medically necessary home health services: PT/OT My clinical findings support the need for the above services because: Pt is weak and having frequent falls Further, I certify that my clinical findings support that this patient is homebound (i.e. absences from home require considerable and taxing effort and are for medical reasons or holiness services or infrequently or of short duration when for other reasons) because: As above Certification for Home Health Services: Based on the above findings, I certify that this patient is confined to the home and needs intermittent longterm care, physical therapy and/or speech therapy or continues to need occupational therapy. The patient is under my care, and I have initiated the establishment of the plan of care. This patient will be followed by a physician who will periodically review the plan of care. Total Time Total Time Spent Total Time Spent (In Minutes): >30 minutes Discharge Plan Discharge Items Patient Disposition: Home - Home Health Services Reason For Visit: UTI, FALL, HYPOKALEMIA Discharge Diagnosis: UTI Activity: Per Instructions section Non-emergency contact: Primary Care Provider Call non-emergency contact if: your symptoms worsen and your pain is not controlled Follow-up/Referrals: Frederick Reynaga DO [Primary Care Provider] - (Date & Time 05/26/2023 1:00 PM Provider Frederick Reynaga DO [facility] ) Diet: Heart Healthy Addtl Attending Provider Instructions: You were admitted out of concern that you had a urinary tract infection. We treated you with a medication called Cefepime for 2 days. Your urine culture did not indicate that you had an infection. We are discharging you with 3 more days of the medication Cefdinir 300mg to be taken twice a day. Please stop taking this medication if you develop any side effects. Please keep follow up with your primary care provider. Your potassium level was decreased when admitted but your level is currently normal. Your sodium level was increased by 1 point on discharge. We ask that you follow up with your primary care provider as scheduled on May 26 for repeat labwork to ensure that your potassium and sodium levels are in the normal range. You chose to go home and would like to have home physical therapy and occupational therapy services. Please continue with those services. Pending Studies at Discharge: No Stand-Alone Forms: My AFFiRiS, Smoking Cessation Medications and DC Order Prescriptions: New cefdinir 300 mg capsule 300 mg PO BID 3 Days Qty: 6 0RF Continued colesevelam [WelChol] 625 mg tablet 625 mg PO TID Patient Comments: before meals , morning , noon and night Rx Instructions: PER [facility]G-TAKE 1250 MG BIDM. montelukast [Singulair] 10 mg tablet 10 mg PO HS Prilosec OTC 20 mg tablet,delayed release (DR/EC) 20 mg PO BID mecobalamin (vitamin B12) 1,000 mcg tablet,disintegrating 1,000 mcg PO QAM Rx Instructions: place tablet under tongue and allow to dissolve for at least30 secs before swallowing desipramine 50 mg tablet 50 mg PO BID Rx Instructions: PER GMG--TAKE 25 MG TID, THEN 50 AT HS. calcitriol 0.5 mcg capsule 0.5 mcg PO BID Qty: 60 5RF calcium carbonate [Calcium 600] 600 mg calcium (1,500 mg) tablet 1,200 mg PO TID Qty: 180 5RF potassium chloride 20 mEq tablet extended release 20 meq PO TID Qty: 90 3RF pregabalin 100 mg capsule 100 mg PO TID 30 Days Qty: 90 2RF levothyroxine 88 mcg tablet 88 mcg PO QAM Qty: 30 3RF Trelegy Ellipta 100-62.5-25 mcg blister with device 1 inh inhalation QAM Qty: 60 5RF Rx Instructions: USE ONE INHALATION EVERY MORNING albuterol sulfate 90 mcg/actuation aerosol powdr breath activated 2 inh INH Q6H PRN (Reason: Shortness Of Breath Or Wheezing) Qty: 1 3RF fexofenadine 60 mg tablet 60 mg PO BID Cerovite Senior 0.4 mg-300 mcg- 250 mcg tablet 1 tab PO DAILY torsemide 20 mg tablet 40 mg PO BID potassium citrate-citric acid 1,100-334 mg/5 mL solution 15 ml PO BID Qty: 473 6RF Rx Instructions: please provide enough for a month ipratropium-albuterol 0.5 mg-3 mg(2.5 mg base)/3 mL Solution For Nebulization 3 ml INHALATION Q4H PRN (Reason: Shortness Of Breath Or Wheezing) Creon 24,000-76,000 -120,000 unit Capsule,Delayed Release(Dr/Ec) 4 cap PO TID Patient Comments: before meals valacyclovir 500 mg tablet 500 mg PO QAM ropinirole 0.5 mg tablet 0.5 mg PO HS escitalopram oxalate 20 mg tablet 20 mg PO QAM rosuvastatin 10 mg tablet 10 mg PO HS metolazone 2.5 mg Tablet 2.5 mg PO DAILY PRN (Reason: WT >199 LBS.) oxycodone-acetaminophen [Percocet] 5-325 mg Tablet 1 tab PO Q6H PRN (Reason: Pain) tamsulosin [Flomax] 0.4 mg Capsule 0.4 mg PO QAM cholecalciferol (vitamin D3) [Vitamin D3] 25 mcg (1,000 unit) Capsule 50 mcg PO QAM duloxetine 30 mg capsule,delayed release(DR/EC) 30 mg PO HS Gemtesa 75 mg tablet 75 mg PO QAM cetirizine 10 mg tablet 10 mg PO DAILY PRN (Reason: Other) fluticasone propionate 50 mcg/actuation spray,suspension 1 spray INTRANASAL DAILY PRN (Reason: Other) risperidone 2 mg Tablet 2 mg PO HS lorazepam 0.5 mg tablet 0.5 mg PO BID PRN (Reason: Anxiety) Discharge Orders: Discharge Order (Routine); Ordered 05/22/23 Ordered By: Daniella Thomas Admission Data Admit Date/Time: 05/20/23 20:16 Attending Provider: Daniella Thomas Admit Provider: Jerome Ventura Primary Care Provider: Frederick Reynaga Other Providers: Jerome Ventura ; Padmini Lomas
== END 2023-05-22 15:46 | disposition home health service (06) | DRG 690 ==
LOC: ED 13:14 → SUATTDRO 20:16 → EDINP 20:16 → 2N 22:38

== ENCOUNTER 2023-05-24 12:51 | Inpatient (IN) ==
--- NOTE | 2023-05-24 12:41 | Emergency Department Note ---
Impression & Plan Hyperkalemia, Fall, Back pain, Acute dehydration ED Provider Note NAME: JOSHUA ZAVALA AGE: 72 SEX: F : 1950 ARRIVES VIA: Ambulance INFORMANT: Patient, ED PROVIDER(S): Lion Cannon MD CHIEF COMPLAINT: Shakiness, fall MEDICAL DECISION MAKING: Patient presents due to concern for shakiness and associated fall. The patient does not exhibit any acute stroke deficits on exam. IV was established and blood work is obtained. Initial srqul-rh-lgwc potassium was greater than 6. Was noted that during her most recent admission she was hypokalemic. The patient is on potassium supplementation. Patient did receive IV Ativan. CTs of the head neck and thoracic spine are negative. Patient has a normal white count H&H and platelet count. Lab potassium was 6.2. The patient was ordered 2 g of calcium 10 mg of albuterol as a neb treatment as well as 20 of IV Lasix as well as IV fluids. Patient's initial creatinine is 1.36. Initial troponin is 16.5. Urinalysis negative for blood. I did speak the on-call hospital service [facility] Real as well as Dr. Pineda and the patient was admitted to the medicine service. Shakiness did improve with the Ativan. Repeat BMP showed improving potassium to 5.9. Critical Care: I have personally spent 45 minutes of critical care time in direct management of this patient. This includes bedside care, interpretation of diagnostic studies, and testing, discussion with consultants, patient, and family members, and other require inpatient management activities. This 45 minutes is in excess of all separately billable procedures. Prior /Outside records reviewed: I did review discharge summary from Dr. Thomas from May 22, 2023. Patient does have a known history of chronic pancreatitis hyperlipidemia hypothyroidism hyperparathyroidism COPD sleep apnea not on oxygen or CPAP history of CHF CKD pacemaker patient had presented due to concern for falls and UTI. Patient does have a history of ESBL and was discharged on cefdinir after tolerating cefepime. Urine culture with no growth to date at the time of discharge. Patient was noted to be hypokalemic at 2.3. Differential diagnosis: ICH, fracture, sprain, strain, electrolyte abnormality, hypoglycemia among others were considered. Diagnostics, as interpreted by me: ECG: Sinus bradycardia, rate of 58, prolonged GA, normal QRS, left axis deviation no ST elevations. Cardiac monitoring: An order was placed for continuous cardiac monitoring. The monitor shows a rate of 55 with paced rhythm. Patient was placed on pulse oximetry Medical decision rules: None Imaging studies: See below HPI: Patient presents via EMS due to concern for shakiness. The patient reports that she had just showered and was getting ready to get dressed in the bathroom when she started to experience some shaking but did not feel cold and fell striking her back in her head. The patient denies any LOC. The patient does not take any blood thinning medications. Patient denies any numbness tingling or focal weakness but does feel shaky. No history of Parkinson's. Patient was recently admitted for a UTI and is not currently on antibiotics that she was unable to pick them up. Patient denies any cough. Patient denies any alcohol or tobacco use. She does live at home by herself but does have a health care coordinator that does come in from time to time. Patient does have a history of frequent falls. Prior to the patient's arrival he did receive an EMS call as they were concerned about the patient's symptoms. There were no definitive symptoms of stroke but she was having some shakiness. The patient's BSG was not low. PAST MEDICAL HISTORY: See Below PAST SURGICAL HISTORY: See Below SOCIAL HISTORY: See Below HOME MEDICATIONS: See Below ALLERGIES: See Below VITALS: See Below PHYSICAL EXAMINATION: GENERAL: NAD, non-toxic. Shakiness. EYE EXAM: Normal conjunctiva. PERRL, no anisocoria and EOM's grossly intact w/o pain. OROPHARYNX: Moist mucus membranes, grossly normal dentition. NECK: Supple, no nuchal rigidity, no adenopathy, non-tender. No signs of meningismus. FROM of the neck with good chin to chest and neck extension. No stridor. LUNGS: Clear to auscultation. Normal chest wall mechanics. HEART: NSR, no MRG. ABDOMEN: Abdomen soft, non-tender, no masses, no rebound or guarding. BACK: No CVA TTP. Lower thoracic midline pain without step-offs or overlying skin changes. SKIN: Old bruising to the left elbow area as well as the left proximal thigh. UPPER EXTREMITIES: Upper extremities are grossly normal. Shaking of the bilateral upper extremities. LOWER EXTREMITIES: Grossly normal, no edema. NEURO EXAM: A&O x3, cranial nerves II-XII grossly intact, normal speech, moves all 4 extremities. Past Med/Surg History Medical History Asthma Atherosclerosis of both lower extremities Bilateral nephrolithiasis Bronchiectasis Chronic diastolic (congestive) heart failure [place]s [place] [facility] [place] Chronic kidney disease stage 3b Chronic sinusitis Chronic urinary tract infection Chronic venous insufficiency Complex sleep apnea syndrome COPD (chronic obstructive pulmonary disease) "Well controlled" Depression Fall GERD without esophagitis H/O concussion Remote hx "a long time ago" History of anemia History of DVT (deep vein thrombosis) Hyperlipidemia per records Hypothyroidism ILD (interstitial lung disease) Incisional hernia Abdominal (from multiple surgeries/feeding tube) Junctional bradycardia Kidney stones Lumbar stenosis Lumbar transverse process fracture Pt reports lower back detioriating - can't lie flat/sleep on a chair MRSA (methicillin resistant staph aureus) culture positive Hx (Left wrist) Had 3 nasal swab and all negative (through [facility] per pt) Nocturnal hypoxemia Obesity LARRY treated with BiPAP Osteoarthritis of left knee Osteoporosis Pacemaker [employer], implanted 12/2022 (bradycardia) Pancreatic insufficiency chronic pancreatitis Peripheral neuropathy Peripheral neuropathy Pernicious anemia (08/08/13) Port-A-Cath in place right side due to poor vascular access PUD (peptic ulcer disease) Had feeding tube for 28 years (has been removed for 11 years) Pulmonary hypertension mild per 07/[address] report Pulmonary nodule seen on imaging study PVC (premature ventricular contraction) Reactive hypoglycemia Right rotator cuff tear Secondary hyperparathyroidism Sepsis 05/2020 @ [facility], urosepsis 2/2 obstructing renal stone, S/P cysto/stent and ESWL Short bowel syndrome Sleep apnea complex sleep apnea, BIPAP (non-compliant) Urinary leakage Vitamin D deficiency Wrist injury Scar tissue surrounding remote wrist ORIF several years ago resulting in intermittent inflammation per pt Surgical History H/O shoulder surgery RT arthroscopy 05/28/2021: LMA#4 atraumatic x 1 + PNB. Anesthesia postop progress note: "Pt denies SOB at this time. Block is functioning well. Vital signs stable and appropriate. Oxygenating well considering block placement and her comorbidities. Plan to discharge home with IS." History of appendectomy History of cardiac cath 08/2019 ([facility])- essentially normal coronary arteries angiographically, no stents History of cholecystectomy History of colonoscopy History of cystoscopy multiple History of esophageal dilatation History of esophagogastroduodenoscopy (EGD) History of gastrointestinal surgery multiple History of joint replacement Rt thumb History of knee replacement procedure of right knee History of open reduction and internal fixation (ORIF) procedure left wrist + manipulation (01/2018) and I&D (10/2019) History of partial gastrectomy History of prior ablation treatment Right LE in January 2020 and left LE 04/18/20 History of sinus surgery History of tonsillectomy and adenoidectomy History of total abdominal hysterectomy and bilateral salpingo-oophorectomy S/P right rotator cuff repair S/P ureteral stent placement Status post laser lithotripsy of ureteral calculus Family History Mother Family history of diabetes mellitus Sister Family history of diabetes mellitus Family history of breast cancer Father Esophageal cancer Other Family history non-contributory No family history of adverse response to anesthesia Social History Smoking Status: Never smoker Second Hand Exposure: No; Do You Dip or Chew Tobacco: No; Hx Alcohol Use: Yes Alcohol type: beer Hx Substance Use: No Preferred Language: Cameroonian Communication Ability: Effective Visual Impairment: No Limitations 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: No Beliefs That Will Affect Care: Cheondoism Cheondoism Beliefs: baptist marital status: Single Current Living Situation: Alone Current Living Situation Comment: apartment behind group home facility How many Children do You have: 0 Other Information That Helps Us Care for You: No Feels Safe at Home: Yes Safety Concerns: Feels Safe At This Time Assistive Devices: Denture - Upper, Denture - Lower, Glasses and Walker Allergies Allergies Allergy/AdvReac Type Severity Reaction Status Date / Time bethanechol Allergy Intermediate RASH, Verified 05/24/23 15:32 "FEELS FUNNY" Cephalosporins Allergy Intermediate RASH, Verified 05/24/23 15:32 DIARRHEA levofloxacin Allergy Intermediate RASH,TURNED Verified 05/24/23 15:32 RED Sulfa (Sulfonamide Allergy Intermediate Generalized Verified 05/24/23 15:32 Antibiotics) Rash ertapenem Allergy Mild RASH Verified 05/24/23 15:32 atropine Allergy Unknown ON [facility] MED Verified 05/24/23 15:32 LIST clindamycin Allergy Unknown Unknown Verified 05/24/23 15:32 dipyridamole Allergy Unknown PERSANTINE--ON Verified 05/24/23 15:32 [facility]G MED LIST droperidol Allergy Unknown Unknown Verified 05/24/23 15:32 meperidine [From Demerol] Allergy Unknown ? ALLERGY Verified 05/24/23 15:32 ON [facility] MED LIST promethazine Allergy Unknown UNKNOWN Verified 05/24/23 15:32 tobramycin Allergy Unknown UNKNOWN Verified 05/24/23 15:32 aspirin AdvReac Severe BLEEDING Verified 05/24/23 15:32 doxycycline AdvReac Severe severe Verified 05/24/23 15:32 Diarrhea, nausea metolazone AdvReac Severe ELECTROLYTE Verified 05/24/23 15:32 ISSUES--HYPOKALEMIA bupropion AdvReac Intermediate NERVOUS Verified 05/24/23 15:32 REACTION cephalexin AdvReac Intermediate GI SYMPTOMS Verified 05/24/23 15:32 morphine AdvReac Intermediate NERVOUS Verified 05/24/23 15:32 REACTION TO IT nitrofurantoin AdvReac Intermediate Vomiting Verified 05/24/23 15:32 [From Macrobid] prochlorperazine AdvReac Intermediate NERVOUS Verified 05/24/23 15:32 REACTION tedizolid AdvReac Intermediate GI SYMPTOMS Verified 05/24/23 15:32 venlafaxine [From Effexor] AdvReac Intermediate NERVOUS Verified 05/24/23 15:32 REACTION lamotrigine AdvReac Unknown tremors Verified 05/24/23 15:32 Home Meds Home Medications Medication Instructions Recorded Confirmed colesevelam 625 mg tablet (WelChol) 625 mg PO TID 06/17/18 05/24/23 montelukast 10 mg tablet 10 mg PO HS 06/17/18 05/24/23 (Singulair) ipratropium 0.5 mg-albuterol 3 mg 3 ml inhalation Q4H PRN Shortness 05/05/19 05/24/23 (2.5 mg base)/3 mL nebulization Of Breath Or Wheezing soln cddmtx-rlcaqpcf-vpiqwav 4 cap PO TID 05/05/19 05/24/23 24,000-76,000-120,000 unit capsule,delayed rel (Creon) omeprazole magnesium 20 mg 20 mg PO BID 05/17/19 05/24/23 tablet,delayed release (Prilosec OTC) risperidone 2 mg tablet 2 mg PO HS 02/27/21 05/24/23 desipramine 50 mg tablet See Rx Instructions .Route .COMPLEX 01/23/22 05/24/23 lorazepam 0.5 mg tablet 0.5 mg PO BID PRN Anxiety 11/06/22 05/24/23 cholecalciferol (vitamin D3) 25 50 mcg PO QAM 11/15/22 05/24/23 mcg (1,000 unit) capsule (Vitamin D3) escitalopram oxalate 20 mg tablet 20 mg PO QAM 11/15/22 05/24/23 metolazone 2.5 mg tablet 2.5 mg PO WK 11/15/22 05/24/23 oxycodone-acetaminophen 5 mg-325 1 tab PO Q6H PRN Pain 11/15/22 05/24/23 mg tablet (Percocet) ropinirole 0.5 mg tablet 0.5 mg PO HS 11/15/22 05/24/23 rosuvastatin 10 mg tablet 10 mg PO QAM 11/15/22 05/24/23 valacyclovir 500 mg tablet 500 mg PO QAM 11/15/22 05/24/23 pfxobort-mnv-krzsb acid 0.4 1 tab PO DAILY 12/31/22 05/24/23 mg-lycopene 300 mcg-lutein 250 mcg tablet (Cerovite Senior) torsemide 20 mg tablet 40 mg PO BID 12/31/22 05/24/23 duloxetine 30 mg capsule,delayed 30 mg PO HS 04/17/23 05/24/23 release vibegron 75 mg tablet (Gemtesa) 75 mg PO QAM 04/17/23 05/24/23 cetirizine 10 mg tablet 10 mg PO DAILY PRN Other 05/20/23 05/24/23 fluticasone propionate 50 1 spray intranasal DAILY PRN 05/20/23 05/24/23 mcg/actuation nasal Congestion spray,suspension Lactobacil.acidophilus-Bifido.animalis 2 cap PO QPM 05/24/23 05/24/23 5 billion cell sprinkle capsule (Probiotic) calcium carbonate 600 mg calcium 1,200 mg PO BIDM 05/24/23 05/24/23 (1,500 mg) tablet (Calcium) cyanocobalamin (vitamin B-12) 1,000 mcg PO DAILY 05/24/23 05/24/23 1,000 mcg tablet (Vitamin B-12) epinephrine 0.3 mg/0.3 mL 0.3 mg IM DIRECTED PRN Allergic 05/24/23 05/24/23 injection, auto-injector (EpiPen) Reaction fluticasone fur. 100 mcg-umeclid 1 inh inhalation DAILY 05/24/23 05/24/23 62.5 mcg-vilant 25 mcg inhalat.powder (Trelegy Ellipta) lamotrigine 25 mg tablet (Lamictal) 25 mg PO BID 05/24/23 05/24/23 nitroglycerin 0.4 mg sublingual 0.4 mg sublingual DIRECTED PRN 05/24/23 05/24/23 tablet (Nitrostat) Chest Pain Previous Rx's Medication Instructions Recorded calcitriol 0.5 mcg capsule 0.5 mcg PO BID #60 caps 12/21/22 albuterol sulfate 90 mcg/actuation 2 inh inhalation Q6H PRN Shortness 02/03/23 breath activated powder inhaler Of Breath Or Wheezing #1 ea potassium chloride 20 mEq 20 meq PO TID #90 tabs 03/30/23 tablet,extended release pregabalin 100 mg capsule 100 mg PO TID 30 days #90 caps 04/21/23 levothyroxine 88 mcg tablet 88 mcg PO QAM #30 tabs 05/21/23 Results & Data (ED) Vital Signs Vital Signs - 24 hr 05/24/23 13:01 05/24/23 12:55 05/24/23 12:55 Temperature Temperature Source Pulse Rate 63 61 Pulse Rate [Apical] Pulse Rate from SpO2 Sensor Pulse Rhythm Respiratory Rate 16 Blood Pressure 97/31 L Blood Pressure [Right Arm] Blood Pressure Mean 53 Blood Pressure Mean [Right Arm] Pulse Oximetry 95 Oxygen Delivery Method Room Air Room Air Sepsis New/Unexplained Change in Mental Status No Sepsis Action Taken by Nursing No Action Required 05/24/23 12:55 05/24/23 12:55 05/24/23 13:00 Temperature 36.9 C Temperature Source Oral Pulse Rate 62 Pulse Rate [Apical] 61 Pulse Rate from SpO2 Sensor 57 L Pulse Rhythm Regular Respiratory Rate 16 26 H Blood Pressure 97/31 L Blood Pressure [Right Arm] 97/31 L Blood Pressure Mean 53 Blood Pressure Mean [Right Arm] 53 Pulse Oximetry 98 97 Oxygen Delivery Method Room Air Room Air Sepsis New/Unexplained Change in Mental Status Sepsis Action Taken by Nursing 05/24/23 13:30 05/24/23 14:15 05/24/23 13:45 Temperature Temperature Source Pulse Rate 60 55 L Pulse Rate [Apical] Pulse Rate from SpO2 Sensor 59 L 55 L Pulse Rhythm Respiratory Rate 22 20 Blood Pressure 90/55 L Blood Pressure [Right Arm] Blood Pressure Mean 66 Blood Pressure Mean [Right Arm] Pulse Oximetry 97 99 Oxygen Delivery Method Room Air Sepsis New/Unexplained Change in Mental Status Sepsis Action Taken by Nursing 05/24/23 14:00 05/24/23 14:15 Temperature Temperature Source Pulse Rate 54 L 55 L Pulse Rate [Apical] Pulse Rate from SpO2 Sensor 55 L 55 L Pulse Rhythm Respiratory Rate 10 L 15 Blood Pressure 89/62 L 77/39 L Blood Pressure [Right Arm] Blood Pressure Mean 71 51 Blood Pressure Mean [Right Arm] Pulse Oximetry 100 100 Oxygen Delivery Method Sepsis New/Unexplained Change in Mental Status Sepsis Action Taken by Longterm Medications Current Medication List: was personally reviewed by me Laboratory Data Attestation: I reviewed the patient's lab results. 05/24/23 13:08 05/24/23 15:10 Lab Results 05/24/23 05/24/23 05/24/23 Range/Units 13:08 13:08 13:08 WBC 8.47 (4.8-10.8) K/ul RBC 4.23 (4.20-5.40) M/uL Hgb 12.2 (12.0-16.0) g/dl POC Hgb (12.0-16.0) g/dl Hct 37.2 (37.0-47.0) % POC Hct (37-47) % MCV 87.9 (80.0-100.0) fL MCH 28.8 (25.0-34.0) pg MCHC 32.8 (32.0-36.0) g/dL RDW Std Deviation 54.8 H (36.4-46.3) fL RDW Coeff of David 17.0 H (11.5-14.5) % Plt Count 155 (130-400) K/uL MPV 9.9 (9.4-12.4) fL Immature Gran % (Auto) 0.5 % Neut % (Auto) 69.3 % Lymph % (Auto) 17.6 % [place] % (Auto) 9.2 % Eos % (Auto) 2.8 % Baso % (Auto) 0.6 % Neut # (Auto) 5.87 (1.40-6.50) K/uL Lymph # (Auto) 1.49 (1.2-3.4) K/uL [place] # (Auto) 0.78 H (0.11-0.59) K/uL Eos # (Auto) 0.24 (0-0.50) K/uL Baso # (Auto) 0.05 (0-0.2) K/uL Immature Gran # (Auto) 0.04 (0.01-0.20) K/uL PT 11.6 (9.0-12.0) Seconds INR 1.1 (0.9-1.1) POC Sodium (135-144) mmol/L Sodium 135 L (136-145) mmol/L POC Potassium (3.3-5.0) mmol/L Potassium 6.2 H* (3.5-5.1) mmol/L POC Chloride (101-112) mmol/L Chloride 104 (98-107) mmol/L Carbon Dioxide 26 (21-32) mmol/L POC Total CO2 (24-31) mmol/L Anion Gap 5 (3-11) POC Anion Gap (16-25) mmol/L POC BUN (7-18) mg/dl BUN 47 H (6-23) mg/dl Creatinine 1.36 H (0.6-1.2) mg/dl POC Creatinine (0.6-1.3) mg/dl Est Cr Clr Drug Dosing 37.7 ml/min Est GFR ( Amer) 45.6 ml/min Est GFR (Non-Af Amer) 39.3 ml/min BUN/Creatinine Ratio 34.6 H (10-20) Glucose 93 (70-99(Fasting)) mg/dl POC Glucose (70-99) mg/dl POC Glucose (other) (70-99) mg/dl Calcium 8.7 (8.6-10.3) mg/dl POC Ioniz Calcium Krystyna (1.12-1.32) mmol/l Magnesium 2.2 (1.7-2.4) mg/dl Total Bilirubin 0.4 (0.2-1.0) mg/dl AST 28 (13-39) U/L ALT 22 (7-52) U/L Alkaline Phosphatase 66 (34-104) U/L Troponin I High Sens 16.5 H (0-14) pg/ml Total Protein 6.3 (6.0-8.3) gm/dl Albumin 3.7 (3.4-5.0) gm/dl Globulin 2.6 (2.5-4.0) gm/dl Albumin/Globulin Ratio 1.4 (0.9-2) TSH (0.300-4.500) uIu/ml 05/24/23 05/24/23 05/24/23 Range/Units 13:08 13:14 13:15 WBC (4.8-10.8) K/ul RBC (4.20-5.40) M/uL Hgb (12.0-16.0) g/dl POC Hgb 12.6 (12.0-16.0) g/dl Hct (37.0-47.0) % POC Hct 37 (37-47) % MCV (80.0-100.0) fL MCH (25.0-34.0) pg MCHC (32.0-36.0) g/dL RDW Std Deviation (36.4-46.3) fL RDW Coeff of David (11.5-14.5) % Plt Count (130-400) K/uL MPV (9.4-12.4) fL Immature Gran % (Auto) % Neut % (Auto) % Lymph % (Auto) % [place] % (Auto) % Eos % (Auto) % Baso % (Auto) % Neut # (Auto) (1.40-6.50) K/uL Lymph # (Auto) (1.2-3.4) K/uL [place] # (Auto) (0.11-0.59) K/uL Eos # (Auto) (0-0.50) K/uL Baso # (Auto) (0-0.2) K/uL Immature Gran # (Auto) (0.01-0.20) K/uL PT (9.0-12.0) Seconds INR (0.9-1.1) POC Sodium 137 (135-144) mmol/L Sodium (136-145) mmol/L POC Potassium 6.2 H* (3.3-5.0) mmol/L Potassium (3.5-5.1) mmol/L POC Chloride 104 (101-112) mmol/L Chloride (98-107) mmol/L Carbon Dioxide (21-32) mmol/L POC Total CO2 24 (24-31) mmol/L Anion Gap (3-11) POC Anion Gap 17.0 (16-25) mmol/L POC BUN 41 H (7-18) mg/dl BUN (6-23) mg/dl Creatinine (0.6-1.2) mg/dl POC Creatinine 1.5 H (0.6-1.3) mg/dl Est Cr Clr Drug Dosing ml/min Est GFR ( Amer) ml/min Est GFR (Non-Af Amer) ml/min BUN/Creatinine Ratio (10-20) Glucose (70-99(Fasting)) mg/dl POC Glucose 94 (70-99) mg/dl POC Glucose (other) 94 (70-99) mg/dl Calcium (8.6-10.3) mg/dl POC Ioniz Calcium Krystyna 1.16 (1.12-1.32) mmol/l Magnesium (1.7-2.4) mg/dl Total Bilirubin (0.2-1.0) mg/dl AST (13-39) U/L ALT (7-52) U/L Alkaline Phosphatase (34-104) U/L Troponin I High Sens (0-14) pg/ml Total Protein (6.0-8.3) gm/dl Albumin (3.4-5.0) gm/dl Globulin (2.5-4.0) gm/dl Albumin/Globulin Ratio (0.9-2) TSH 1.039 (0.300-4.500) uIu/ml Administered Medications Discontinued Medications Acetaminophen (Acetaminophen 500 Mg Tab) 1,000 mg PO NOW STA Stop: 05/24/23 13:01 Last Admin: 05/24/23 13:44 Dose: 1,000 mg Documented By: BOBBI Albuterol (Albuterol 0.083% Nebu Soln 3 Ml Vial) 10 mg NEB NOW STA; Protocol Stop: 05/24/23 13:52 Last Admin: 05/24/23 14:04 Dose: 10 mg Documented By: BOBBI Furosemide (Furosemide Inj 20 Mg/2 Ml Vial) 20 mg IV ONE ONE Stop: 05/24/23 13:53 Last Admin: 05/24/23 14:18 Dose: 20 mg Documented By: BOBBI Sodium Chloride (Nss) 500 mls @ 999 mls/hr IV .Q31M ONE Stop: 05/24/23 14:21 Last Infusion: 05/24/23 15:11 Dose: 0 mls/hr Documented By: Admin: 05/24/23 14:04 Dose: 999 mls/hr Documented By: BOBBI Calcium Gluconate () 1,000 mg in 60 mls @ 240 mls/hr IV Q15M CATE Stop: 05/24/23 14:29 Last Infusion: 05/24/23 15:10 Dose: 0 mls/hr Documented By: Admin: 05/24/23 14:23 Dose: 240 mls/hr Documented By: Infusion: 05/24/23 14:23 Dose: 240 mls/hr Documented By: Admin: 05/24/23 14:09 Dose: 240 mls/hr Documented By: BOBBI Sodium Chloride (Nss 1000ml) 500 mls @ 999 mls/hr IV .Q31M ONE Stop: 05/24/23 14:55 Last Infusion: 05/24/23 15:45 Dose: 0 mls/hr Documented By: Admin: 05/24/23 15:12 Dose: 999 mls/hr Documented By: JOSE Lorazepam (Lorazepam 2 Mg/1 Ml Vial) 0.25 mg IV NOW STA Stop: 05/24/23 13:03 Last Admin: 05/24/23 13:45 Dose: 0.25 mg Documented By: [facility] Data Radiologist's Impression: Cervical Spine CT 05/24/23 13:[address] DOSE: 2064.61 mGy.cm HISTORY: fall TECHNIQUE: Multiaxial CT images of the cervical spine were performed and reform atted in the sagittal and coronal plane without the use of contrast. A dose lowering technique was utilized adhering to the principles of ALARA. COMPARISON: Cervical spine CT 05/20/2023. FINDINGS: No fractures. No subluxation. Prevertebral soft tissues and the C1-C2 interval are intact. No pneumothorax. IMPRESSION: No fractures within the cervical spine. ACT 112: Negative or not required by law. Electronically signed by: Noel Crenshaw M.D. 05/24/2023 1:59 PM Chest X-Ray 05/24/23 13:00 XR chest 1V portable HISTORY: 72 years-old Female weakness acute weakness COMPARISON: 05/20/2023 TECHNIQUE: AP view of the chest FINDINGS: The cardiac silhouette is enlarged. Mild right hemidiaphragmatic elevation. Right IJ Xolxxd-z-Vjmb catheter is unchanged. Surgical clips project over the epigastrium. Electronic device is again noted projected over the left heart border. No pneumothorax, pleural effusion or overt pulmonary edema. Chronic reticular interstitial opacities with bronchiectasis. Degenerative changes of the shoulders and spine. IMPRESSION: 1. Cardiomegaly with chronic interstitial coarsening. 2. Stable mild right hemidiaphragmatic elevation. ACT 112: Negative or not required by law. The above report was generated using voice recognition software. It may contain grammatical, syntax or spelling errors. Electronically signed by: Soham Kirby M.D. 05/24/2023 2:[address] 05/24/23 13:[address] DOSE: HISTORY: Slurred speech. fall TECHNIQUE: Multiaxial CT images of the head were performed without the use of intravenous contrast. Automated exposure control was utilized for this study. A dose lowering technique was utilized adhering to the principles of ALARA. Comparison: Head CT 05/20/2023. Findings: Partial opacification of the right maxillary sinus and right anterior ethmoid air cells again noted. The mastoid air cells are clear. Prior bilateral lens replacement. The calvarium and skull base are intact. The ventricles and sulci are within normal limits. There is no mass, hematoma, midline shift, or acute infarct. Impression: No acute intracranial abnormality. ACT 112: Negative or not required by law. Electronically signed by: Noel Crenshaw M.D. 05/24/2023 1:[address] 05/24/23 13:[address] DOSE: HISTORY: fall, midline lower T spine pain TECHNIQUE: Multiaxial CT images of the thoracic spine were performed and reformatted in the sagittal and coronal plane without the use of contrast. A dose lowering technique was utilized adhering to the principles of ALARA. COMPARISON: None. FINDINGS: No fractures. No subluxation. Paraspinal soft tissues are unremarkable. A right jugular catheter terminates at the distal SVC. There are surgical clips seen within the epigastric region. No pneumothorax. Interstitial thickening noted within the lungs which is likely chronic. Mild degenerative disc disease seen within the thoracic spine. There are few scattered vertebral body hemangiomas. IMPRESSION: No fractures within the thoracic spine. ACT 112: Negative or not required by law. Electronically signed by: Noel Crenshaw M.D. 05/24/2023 2:02 PM Discharge Plan Visit Data Chief Complaint: Stroke Alert ED Provider: Lion Cannon Discharge Problem: Hyperkalemia, Fall, Back pain, Acute dehydration Patient Disposition: Admitted As Inpatient Discharge Instructions Interventions: ED Discharge Assessment Last Done: 05/24/23 16:15
[2023-05-24] MEDS ORDERED: ACETAMINOPHEN 500 MG TAB PO STA (13:00)
[2023-05-24] MEDS ORDERED: LORazepam 2 MG/1 ML VIAL IV STA (13:02)
[2023-05-24 13:27] LABS: Basophils # (auto) 0.05 K/uL (0-0.2); Basophils % (auto) 0.6 %; Eosinophils # (auto) 0.24 K/uL (0-0.50); Eosinophils % (auto) 2.8 %; Hematocrit (blood only) 37.2 % (37.0-47.0); Hemoglobin 12.2 g/dl (12.0-16.0); Immature Granulocytes # (auto) 0.04 K/uL (0.01-0.20); Immature Granulocytes % (auto) 0.5 %; Lymphocytes # (auto) 1.49 K/uL (1.2-3.4); Lymphocytes % (auto) 17.6 %; Mean Corpuscular Hemoglobin 28.8 pg (25.0-34.0); Mean Corpuscular Hgb Conc 32.8 g/dL (32.0-36.0); Mean Corpuscular Volume 87.9 fL (80.0-100.0); Mean Platelet Volume 9.9 fL (9.4-12.4); Monocytes # (auto) 0.78 K/uL (0.11-0.59); Monocytes % (auto) 9.2 %; Neutrophils # (auto) 5.87 K/uL (1.40-6.50); Neutrophils % (auto) 69.3 %; Platelet Count 155 K/uL (130-400); RDW Standard Deviation 54.8 fL (36.4-46.3); Red Blood Count 4.23 M/uL (4.20-5.40); White Blood Count 8.47 K/ul (4.8-10.8)
[2023-05-24 13:28] LABS: iSTAT Creatinine 1.5 mg/dl (0.6-1.3); iSTAT Hemoglobin 12.6 g/dl (12.0-16.0); iSTAT Ionized Calcium 1.16 mmol/l (1.12-1.32); iSTAT Potassium 6.2 mmol/L (3.3-5.0)
[2023-05-24 13:29] LABS: INR 1.1 (0.9-1.1); Prothrombin Time 11.6 Seconds (9.0-12.0)
--- NOTE | 2023-05-24 13:39 | CT Scan Report ---
HEAD CT NONCONTRAST CT DOSE: HISTORY: Slurred speech. fall TECHNIQUE: Multiaxial CT images of the head were performed without the use of intravenous contrast. A utomated exposure control was utilized for this study. A dose lowering technique was utilized adheri ng to the principles of ALARA. Comparison: Head CT 05/20/2023. Findings: Partial opacification of the right maxillary sinus and right anterior ethmoid air cells aga in noted. The mastoid air cells are clear. Prior bilateral lens replacement. The calvarium and skull base are intact. The ventricles and sulci are within normal limits. There is no mass, hematoma, midli ne shift, or acute infarct. Impression: No acute intracranial abnormality. ACT 112: Negative or not required by law. Electronically signed by: Noel Crenshaw M.D. 05/24/2023 1:37 PM
[2023-05-24 13:48] LABS: Albumin Globulin Ratio 1.4 (0.9-2); Albumin Level 3.7 gm/dl (3.4-5.0); BUN Creatinine Ratio 34.6 (10-20); Bilirubin,Total 0.4 mg/dl (0.2-1.0); Calcium 8.7 mg/dl (8.6-10.3); Creatinine Clr Calc Pharmacy 37.7 ml/min; Est GFR (African American) 45.6 ml/min; Est GFR (Non-African American) 39.3 ml/min; Globulin 2.6 gm/dl (2.5-4.0); Magnesium 2.2 mg/dl (1.7-2.4); Potassium 6.2 mmol/L (3.5-5.1); Total Protein 6.3 gm/dl (6.0-8.3); Troponin I High Sensitivity 16.5 pg/ml (0-14)
[2023-05-24] MEDS ORDERED: SODIUM CHLORIDE 0.9% 500 ML IV ONE (13:51)
[2023-05-24] MEDS ORDERED: ALBUTEROL 0.083% NEBU SOLN 3 ML VIAL NEB STA (13:51)
[2023-05-24] MEDS ORDERED: FUROSEMIDE INJ 20 MG/2 ML VIAL IV ONE (13:52)
--- NOTE | 2023-05-24 14:01 | CT Scan Report ---
CERVICAL SPINE CT CT DOSE: 2064.61 mGy.cm HISTORY: fall TECHNIQUE: Multiaxial CT images of the cervical spine were performed and reformatted in the sagittal and coronal plane without the use of contrast. A dose lowering technique was utilized adhering to th e principles of ALARA. COMPARISON: Cervical spine CT 05/20/2023. FINDINGS: No fractures. No subluxation. Prevertebral soft tissues and the C1-C2 interval are intact. No pneumothorax. IMPRESSION: No fractures within the cervical spine. ACT 112: Negative or not required by law. Electronically signed by: Noel Crenshaw M.D. 05/24/2023 1:59 PM
--- NOTE | 2023-05-24 14:03 | CT Scan Report ---
THORACIC SPINE CT CT DOSE: HISTORY: fall, midline lower T spine pain TECHNIQUE: Multiaxial CT images of the thoracic spine were performed and reformatted in the sagittal and coronal plane without the use of contrast. A dose lowering technique was utilized adhering to th e principles of ALARA. COMPARISON: None. FINDINGS: No fractures. No subluxation. Paraspinal soft tissues are unremarkable. A right jugular cat heter terminates at the distal SVC. There are surgical clips seen within the epigastric region. No pn eumothorax. Interstitial thickening noted within the lungs which is likely chronic. Mild degenerative disc disease seen within the thoracic spine. There are few scattered vertebral body hemangiomas. IMPRESSION: No fractures within the thoracic spine. ACT 112: Negative or not required by law. Electronically signed by: Noel Crenshaw M.D. 05/24/2023 2:02 PM
--- NOTE | 2023-05-24 14:04 | XRay Report ---
XR chest 1V portable HISTORY: 72 years-old Female weakness acute weakness COMPARISON: 05/20/2023 TECHNIQUE: AP view of the chest FINDINGS: The cardiac silhouette is enlarged. Mild right hemidiaphragmatic elevation. Right IJ [id number]-a-[id number] ca theter is unchanged. Surgical clips project over the epigastrium. Electronic device is again noted pr ojected over the left heart border. No pneumothorax, pleural effusion or overt pulmonary edema. Chron ic reticular interstitial opacities with bronchiectasis. Degenerative changes of the shoulders and sp ine. IMPRESSION: 1. Cardiomegaly with chronic interstitial coarsening. 2. Stable mild right hemidiaphragmatic elevation. ACT 112: Negative or not required by law. The above report was generated using voice recognition software. It may contain grammatical, syntax o r spelling errors. Electronically signed by: Soham Kirby M.D. 05/24/2023 2:03 PM
[2023-05-24] MEDS: CALCIUM GLUCONATE 1,000 MG/60 ML BAG IV SCH ×2 (14:09→14:23)
[2023-05-24] MEDS ORDERED: SODIUM CHLORIDE 0.9% 1000ML 500 ML IV ONE (14:25)
[2023-05-24 15:25] LABS: Appearance Urine Clear (Clear); Bacteria Urine Automated Negative (Negative); Bilirubin Urine Negative (Negative); Blood Urine Negative (Negative); Cast Urine Automated 0 /lpf (0-5); Color Urine Yellow; Epithelial Cell Urine Auto 0-5 /lpf (0-5); Glucose Urine UA Negative (Negative); Ketones Urine Negative (Negative); Leukocyte Esterase Urine 1+ (Negative); Nitrite Urine Negative (Negative); Protein Urine Negative (Negative); RBC Urine Automated 0-4 /hpf (0-4); Specific Gravity Urine 1.007 (1.000-1.030); Urobilinogen Urine Negative (Negative)
[2023-05-24 15:45] LABS: BUN Creatinine Ratio 34.4 (10-20); Calcium 9.4 mg/dl (8.6-10.3); Creatinine Clr Calc Pharmacy 39.2 ml/min; Est GFR (African American) 47.7 ml/min; Est GFR (Non-African American) 41.1 ml/min; Potassium 5.9 mmol/L (3.5-5.1)
[2023-05-24] MEDS ORDERED: ACETAMINOPHEN 325 MG TAB PO PRN (16:46)
--- NOTE | 2023-05-24 17:54 | History & Physical Report ---
Date of Service May 24, 2023 Assessment & Plan (1) Hyperkalemia: (2) JAVI (acute kidney injury): Plan: Admit to telemetry Patient presenting from home with reports of tremor, generalized weakness, fall. Recently admitted to [facility] 05/20 through 05/22 for fall, weakness, UTI, hypokalemia. Potassium was replaced during admission however no adjustments were made in her medications. In the ED, labs show K+ 6.2. Patient was treated with albuterol treatment, IVF, IV Lasix, IV calcium. Creatinine mildly elevated from baseline at 1.3 Received 1 L IVF in ED, will hold on additional IVF for now given history of diastolic CHF. Repeat BMP this evening. Hold home torsemide and potassium supplementation pending a.m. labs. (3) Fall: Plan: Head, C-spine, thoracic CTs unremarkable PT/OT, case management consult --patient may benefit from SNF placement (4) Tremor: Plan: Tremor/ "shakiness" seems to occur when patient is trying to sit up or exert herself -- ?? if due to weakness from deconditioning from recent hospital admission PT/OT evals Consider additional work up with brain MRI if persistent (5) Urinary tract infection: Plan: During recent admission, patient diagnosed with E. coli UTI Discharged on 3 days of cefdinir however patient has not picked up the prescription yet. Will order cefdinir 3 days to complete course. (6) Chronic diastolic (congestive) heart failure: Plan: Holding torsemide due to mild JAVI (7) Pancreatic insufficiency: Plan: No acute issues, continue Creon (8) Sinus node dysfunction: (9) Status post placement of cardiac pacemaker: Plan: No acute issues (10) Hypothyroidism: Plan: Continue levothyroxine (11) Complex sleep apnea syndrome: Plan: BiPAP as per home setting DVT PROPHYLAXIS SQ heparin Patient seen in collaboration with Dr. Terry. I spent a total of 75 minutes coordinating, documenting, and providing care for this patient excluding time spent in the performance of separately billed services. This included personally reviewing all current laboratories and imaging studies, medication reconciliation, outpatient chart review, and discussion with specialists. Admission and Anticipated Discharge Date Admission Date: May 24, 2023 History of Present Illness Chief Complaint: Fall Primary Care Provider: Frederick Reynaga DO 72-year-old female with PMH chronic pancreatitis, HLD, hypothyroidism, COPD, complex sleep apnea syndrome, chronic diastolic CHF, HTN, CKD stage III, SSS s/p pacemaker, chronic venous insufficiency, Raynaud's, pulmonary hypertension, GERD, depression, history of partial gastrectomy, and other problems listed below who presents to the ED for evaluation after fall. History obtained from the patient and review of PCP and recent inpatient records. Patient recently admitted to [facility] 05/20 through 05/22 for fall, UTI, hypokalemia. Potassium was replaced during admission and urine culture grew E. coli and patient was discharged on 3 days of cefdinir. Patient states that her pharmacy was not able to deliver her medications over the weekend and she has not started her home antibiotic yet. No other medication changes were made. Patient reports feeling tremulous since arriving home. Today she states she suffered a fall in the bathroom. She denies associated lightheadedness, dizziness, diaphoresis, syncopal event. She pushed her life alert button and was brought to the ED for evaluation. Patient denies chest pain shortness of breath. No abdominal pain, nausea, vomiting, diarrhea. Denies urinary symptoms. In the ED, labs show K+ 6.2, creatinine 1.3. Head, C-spine, thoracic CTs all unremarkable for acute findings. Patient was given Tylenol, albuterol treatment, calcium, IV lorazepam, IVF, IV furosemide. Allergies Allergy/AdvReac Type Severity Reaction Status Date / Time bethanechol Allergy Intermediate RASH, Verified 05/24/23 15:32 "FEELS FUNNY" Cephalosporins Allergy Intermediate RASH, Verified 05/24/23 15:32 DIARRHEA levofloxacin Allergy Intermediate RASH,TURNED Verified 05/24/23 15:32 RED Sulfa (Sulfonamide Allergy Intermediate Generalized Verified 05/24/23 15:32 Antibiotics) Rash ertapenem Allergy Mild RASH Verified 05/24/23 15:32 atropine Allergy Unknown ON [facility] MED Verified 05/24/23 15:32 LIST clindamycin Allergy Unknown Unknown Verified 05/24/23 15:32 dipyridamole Allergy Unknown PERSANTINE--ON Verified 05/24/23 15:32 [facility]G MED LIST droperidol Allergy Unknown Unknown Verified 05/24/23 15:32 meperidine [From Demerol] Allergy Unknown ? ALLERGY Verified 05/24/23 15:32 ON [facility] MED LIST promethazine Allergy Unknown UNKNOWN Verified 05/24/23 15:32 tobramycin Allergy Unknown UNKNOWN Verified 05/24/23 15:32 aspirin AdvReac Severe BLEEDING Verified 05/24/23 15:32 doxycycline AdvReac Severe severe Verified 05/24/23 15:32 Diarrhea, nausea metolazone AdvReac Severe ELECTROLYTE Verified 05/24/23 15:32 ISSUES--HYPOKALEMIA bupropion AdvReac Intermediate NERVOUS Verified 05/24/23 15:32 REACTION cephalexin AdvReac Intermediate GI SYMPTOMS Verified 05/24/23 15:32 morphine AdvReac Intermediate NERVOUS Verified 05/24/23 15:32 REACTION TO IT nitrofurantoin AdvReac Intermediate Vomiting Verified 05/24/23 15:32 [From Macrobid] prochlorperazine AdvReac Intermediate NERVOUS Verified 05/24/23 15:32 REACTION tedizolid AdvReac Intermediate GI SYMPTOMS Verified 05/24/23 15:32 venlafaxine [From Effexor] AdvReac Intermediate NERVOUS Verified 05/24/23 15:32 REACTION lamotrigine AdvReac Unknown tremors Verified 05/24/23 15:32 Home Medications Medication Instructions Recorded Confirmed Type colesevelam 625 mg tablet (WelChol) 625 mg PO TID 06/17/18 05/24/23 History montelukast 10 mg tablet 10 mg PO HS 06/17/18 05/24/23 History (Singulair) ipratropium 0.5 mg-albuterol 3 mg 3 ml inhalation Q4H PRN Shortness 05/05/19 05/24/23 History (2.5 mg base)/3 mL nebulization Of Breath Or Wheezing soln udihil-jzjwaunz-ifirpha 4 cap PO TID 05/05/19 05/24/23 History 24,000-76,000-120,000 unit capsule,delayed rel (Creon) omeprazole magnesium 20 mg 20 mg PO BID 05/17/19 05/24/23 History tablet,delayed release (Prilosec OTC) risperidone 2 mg tablet 2 mg PO HS 02/27/21 05/24/23 History desipramine 50 mg tablet See Rx Instructions .Route .COMPLEX 01/23/22 05/24/23 History lorazepam 0.5 mg tablet 0.5 mg PO BID PRN Anxiety 11/06/22 05/24/23 History cholecalciferol (vitamin D3) 25 50 mcg PO QAM 11/15/22 05/24/23 History mcg (1,000 unit) capsule (Vitamin D3) escitalopram oxalate 20 mg tablet 20 mg PO QAM 11/15/22 05/24/23 History metolazone 2.5 mg tablet 2.5 mg PO WK 11/15/22 05/24/23 History oxycodone-acetaminophen 5 mg-325 1 tab PO Q6H PRN Pain 11/15/22 05/24/23 History mg tablet (Percocet) ropinirole 0.5 mg tablet 0.5 mg PO HS 11/15/22 05/24/23 History rosuvastatin 10 mg tablet 10 mg PO QAM 11/15/22 05/24/23 History valacyclovir 500 mg tablet 500 mg PO QAM 11/15/22 05/24/23 History calcitriol 0.5 mcg capsule 0.5 mcg PO BID #60 caps 12/21/22 05/24/23 Rx vmymprxa-pyf-lhxnu acid 0.4 1 tab PO DAILY 12/31/22 05/24/23 History mg-lycopene 300 mcg-lutein 250 mcg tablet (Cerovite Senior) torsemide 20 mg tablet 40 mg PO BID 12/31/22 05/24/23 History albuterol sulfate 90 mcg/actuation 2 inh inhalation Q6H PRN Shortness 02/03/23 05/24/23 Rx breath activated powder inhaler Of Breath Or Wheezing #1 ea potassium chloride 20 mEq 20 meq PO TID #90 tabs 03/30/23 05/24/23 Rx tablet,extended release duloxetine 30 mg capsule,delayed 30 mg PO HS 04/17/23 05/24/23 History release vibegron 75 mg tablet (Gemtesa) 75 mg PO QAM 04/17/23 05/24/23 History pregabalin 100 mg capsule 100 mg PO TID 30 days #90 caps 04/21/23 05/24/23 Rx cetirizine 10 mg tablet 10 mg PO DAILY PRN Other 05/20/23 05/24/23 History fluticasone propionate 50 1 spray intranasal DAILY PRN 05/20/23 05/24/23 History mcg/actuation nasal Congestion spray,suspension levothyroxine 88 mcg tablet 88 mcg PO QAM #30 tabs 05/21/23 05/24/23 Rx Lactobacil.acidophilus-Bifido.animalis 2 cap PO QPM 05/24/23 05/24/23 History 5 billion cell sprinkle capsule (Probiotic) calcium carbonate 600 mg calcium 1,200 mg PO BIDM 05/24/23 05/24/23 History (1,500 mg) tablet (Calcium) cyanocobalamin (vitamin B-12) 1,000 mcg PO DAILY 05/24/23 05/24/23 History 1,000 mcg tablet (Vitamin B-12) epinephrine 0.3 mg/0.3 mL 0.3 mg IM DIRECTED PRN Allergic 05/24/23 05/24/23 History injection, auto-injector (EpiPen) Reaction fluticasone fur. 100 mcg-umeclid 1 inh inhalation DAILY 05/24/23 05/24/23 History 62.5 mcg-vilant 25 mcg inhalat.powder (Trelegy Ellipta) lamotrigine 25 mg tablet (Lamictal) 25 mg PO BID 05/24/23 05/24/23 History nitroglycerin 0.4 mg sublingual 0.4 mg sublingual DIRECTED PRN 05/24/23 05/24/23 History tablet (Nitrostat) Chest Pain Past Med/Surg History Medical History Asthma Atherosclerosis of both lower extremities Bilateral nephrolithiasis Bronchiectasis Chronic diastolic (congestive) heart failure Follows with [facility] cardiology Chronic kidney disease stage 3b Chronic sinusitis Chronic urinary tract infection Chronic venous insufficiency Complex sleep apnea syndrome COPD (chronic obstructive pulmonary disease) "Well controlled" Depression Fall GERD without esophagitis H/O concussion Remote hx "a long time ago" History of anemia History of DVT (deep vein thrombosis) Hyperlipidemia per records Hypothyroidism ILD (interstitial lung disease) Incisional hernia Abdominal (from multiple surgeries/feeding tube) Junctional bradycardia Kidney stones Lumbar stenosis Lumbar transverse process fracture Pt reports lower back detioriating - can't lie flat/sleep on a chair MRSA (methicillin resistant staph aureus) culture positive Hx (Left wrist) Had 3 nasal swab and all negative (through [facility] per pt) Nocturnal hypoxemia Obesity LARRY treated with BiPAP Osteoarthritis of left knee Osteoporosis Pacemaker [employer], implanted 12/2022 (bradycardia) Pancreatic insufficiency chronic pancreatitis Peripheral neuropathy Peripheral neuropathy Pernicious anemia (08/08/13) Port-A-Cath in place right side due to poor vascular access PUD (peptic ulcer disease) Had feeding tube for 28 years (has been removed for 11 years) Pulmonary hypertension mild per 07/[address] report Pulmonary nodule seen on imaging study PVC (premature ventricular contraction) Reactive hypoglycemia Right rotator cuff tear Secondary hyperparathyroidism Sepsis 05/2020 @ [facility], urosepsis 2/2 obstructing renal stone, S/P cysto/stent and ESWL Short bowel syndrome Sleep apnea complex sleep apnea, BIPAP (non-compliant) Urinary leakage Vitamin D deficiency Wrist injury Scar tissue surrounding remote wrist ORIF several years ago resulting in intermittent inflammation per pt Surgical History H/O shoulder surgery RT arthroscopy 05/28/2021: LMA#4 atraumatic x 1 + PNB. Anesthesia postop progress note: "Pt denies SOB at this time. Block is functioning well. Vit al signs stable and appropriate. Oxygenating well considering block placement and her comorbidities. Plan to discharge home with IS." History of appendectomy History of cardiac cath 08/2019 ([facility])- essentially normal coronary arteries angiographically, no stents History of cholecystectomy History of colonoscopy History of cystoscopy multiple History of esophageal dilatation History of esophagogastroduodenoscopy (EGD) History of gastrointestinal surgery multiple History of joint replacement Rt thumb History of knee replacement procedure of right knee History of open reduction and internal fixation (ORIF) procedure left wrist + manipulation (01/2018) and I&D (10/2019) History of partial gastrectomy History of prior ablation treatment Right LE in January 2020 and left LE 04/18/20 History of sinus surgery History of tonsillectomy and adenoidectomy History of total abdominal hysterectomy and bilateral salpingo-oophorectomy S/P right rotator cuff repair S/P ureteral stent placement Status post laser lithotripsy of ureteral calculus Family History Mother Family history of diabetes mellitus Sister Family history of diabetes mellitus Family history of breast cancer Father Esophageal cancer Other Family history non-contributory No family history of adverse response to anesthesia Social History Smoking Status: Never smoker Second Hand Exposure: No; Do You Dip or Chew Tobacco: No; Hx Alcohol Use: Yes Alcohol type: beer Hx Substance Use: No Preferred Language: Albanian Communication Ability: Effective Visual Impairment: No Limitations [employer] Required: No Beliefs That Will Affect Care: Jehovah'S Witness Jehovah'S Witness Beliefs: lutheran marital status: Single Current Living Situation: Alone Current Living Situation Comment: apartment behind long term facility How many Children do You have: 0 Other Information That Helps Us Care for You: No Feels Safe at Home: Yes Safety Concerns: Feels Safe At This Time Assistive Devices: Denture - Upper, Denture - Lower, Glasses and Walker Review of Systems Review of Systems: ROS per HPI, all other systems reviewed and negative Physical Exam Physical Exam: please refer to Dr. Terry's addendum for physical exam Results & Data Results & Data Vital Signs (Past 12 Hours) Vital Signs Temp Pulse Pulse Resp BP BP Pulse Ox 05/24/23 16:42 80 05/24/23 16:15 68 16 96/53 L 98 05/24/23 15:30 55 L 16 95/53 L 95 05/24/23 15:15 55 L 16 90/45 L 98 05/24/23 15:00 55 L 16 89/53 L 98 05/24/23 14:15 55 L 15 77/39 L 100 05/24/23 14:00 54 L 10 L 89/62 L 100 05/24/23 13:45 55 L 20 99 05/24/23 14:15 05/24/23 13:30 60 22 90/55 L 97 05/24/23 13:00 62 26 H 97/31 L 97 05/24/23 12:55 05/24/23 12:55 36.9 C 61 16 97/31 L 98 05/24/23 12:55 05/24/23 12:55 61 16 97/31 L 95 05/24/23 13:01 63 O2 Del Method 05/24/23 16:42 05/24/23 16:15 Room Air 05/24/23 15:30 Room Air 05/24/23 15:15 Room Air 05/24/23 15:00 Room Air 05/24/23 14:15 05/24/23 14:00 05/24/23 13:45 05/24/23 14:15 Room Air 05/24/23 13:30 08/20/23 13:00 05/24/23 12:55 Room Air 05/24/23 12:55 Room Air 05/24/23 12:55 Room Air 05/24/23 12:55 Room Air 05/24/23 13:01 Laboratory Results Short CBC 05/24/23 Range/Units 13:08 WBC 8.47 (4.8-10.8) K/ul Hgb 12.2 (12.0-16.0) g/dl Hct 37.2 (37.0-47.0) % Plt Count 155 (130-400) K/uL BMP 05/24/23 05/24/23 13:08 15:10 Sodium 135 L 137 Potassium 6.2 H* 5.9 H Chloride 104 105 Carbon Dioxide 26 26 BUN 47 H 45 H Creatinine 1.36 H 1.31 H Glucose 93 107 H Calcium 8.7 9.4 Liver Function 05/24/23 Range/Units 13:08 Total Bilirubin 0.4 (0.2-1.0) mg/dl AST 28 (13-39) U/L ALT 22 (7-52) U/L Alkaline Phosphatase 66 (34-104) U/L Albumin 3.7 (3.4-5.0) gm/dl Urine 05/24/23 Range/Units 15:10 Urine Color Yellow Urine Appearance Clear (Clear) Urine pH 8.0 H (4.5-7.5) Ur Specific [place] 1.007 (1.000-1.030) Urine Protein Negative (Negative) Urine Glucose (UA) Negative (Negative) Diagnostic Findings Cervical Spine CT 05/24/23 13:[address] HISTORY: fall TECHNIQUE: Multiaxial CT images of the cervical spine were performed and reformatted in the sagittal and coronal plane without the use of contrast. A dose lowering technique was utilized adhering to the principles of ALARA. COMPARISON: Cervical spine CT 05/20/2023. FINDINGS: No fractures. No subluxation. Prevertebral soft tissues and the C1-C2 interval are intact. No pneumothorax. IMPRESSION: No fractures within the cervical spine. Electronically signed by: Noel Crenshaw M.D. 05/24/2023 1:59 PM Chest X-Ray 05/24/23 13:00 XR chest 1V portable HISTORY: 72 years-old Female weakness acute weakness COMPARISON: 05/20/2023 FINDINGS: The cardiac silhouette is enlarged. Mild right hemidiaphragmatic elevation. Right IJ Zcwjsv-y-Tvpe catheter is unchanged. Surgical clips project over the epigastrium. Electronic device is again noted projected over the left heart border. No pneumothorax, pleural effusion or overt pulmonary edema. Chronic reticular interstitial opacities with bronchiectasis. Degenerative changes of the shoulders and spine. IMPRESSION: 1. Cardiomegaly with chronic interstitial coarsening. 2. Stable mild right hemidiaphragmatic elevation. Electronically signed by: Soham Kirby M.D. 05/24/2023 2:[address] 05/24/23 13:[address] NONCONTRAST HISTORY: Slurred speech. fall TECHNIQUE: Multiaxial CT images of the head were performed without the use of intravenous contrast. Automated exposure control was utilized for this study. A dose lowering technique was utilized adhering to the principles of ALARA. Comparison: Head CT 05/20/2023. Findings: Partial opacification of the right maxillary sinus and right anterior ethmoid air cells again noted. The mastoid air cells are clear. Prior bilateral lens replacement. The calvarium and skull base are intact. The ventricles and sulci are within normal limits. There is no mass, hematoma, midline shift, or acute infarct. Impression: No acute intracranial abnormality. Electronically signed by: Noel Crenshaw M.D. 05/24/2023 1:[address] 05/24/23 13:[address] HISTORY: fall, midline lower T spine pain TECHNIQUE: Multiaxial CT images of the thoracic spine were performed and reformatted in the sagittal and coronal plane without the use of contrast. A dose lowering technique was utilized adhering to the principles of ALARA. COMPARISON: None. FINDINGS: No fractures. No subluxation. Paraspinal soft tissues are unremarkable. A right jugular catheter terminates at the distal SVC. There are surgical clips seen within the epigastric region. No pneumothorax. Interstitial thickening noted within the lungs which is likely chronic. Mild degenerative disc disease seen within the thoracic spine. There are few scattered vertebral body hemangiomas. IMPRESSION: No fractures within the thoracic spine. Electronically signed by: Noel Crenshaw M.D. 05/24/2023 2:02 PM Code Status & VTE Plan VTE Prophylaxis Plan VTE Prophylaxis will be ordered: Yes Supervising Physician Co-Signing Physician Notes Ms. Braswell is a 72-year-old female with PMHx including but not limited to SSS s/p pacemaker, HFpEF, HTN, HLP, PVD, chronic venous insufficiency, LARRY, Asthma, COPD, ILD, pulmonary HTN, hypothyroidism, GERD, CKD IIIb, short bowel syndrome, hx partial gastrectomy, chronic pancreatitis, pancreatic insufficiency, Raynaud's, peripheral neuropathy, depression, and frequent falls. She presented d/t fall. She was found to have JAVI and hyperkalemia. Of note she was recently admitted for falls, UTI, and hypokalemia. She was d/c 2 days prior to presentation to complete a course of oral abx. Unfortunately her pharmacy does not deliver over the weekend, therefore she did not take the medication prescribed. She anticipates medications will be delivered on Thursday. Upon arriving home she was feeling tremulous. "Shaking" was significantly worse on the day of presentation. She was in the bathroom and was shaking so severely that she fell and hit her back. She denies associated lightheadedness, dizziness, diaphoresis, or syncope. Other than the "shaking" she has no complaints. She reports a good appetite. She denies malaise, fatigue, f/c/n/v, CP, sob, abdominal pain, diarrhea, and dysuria. Other than falling d/t shaking she has no complaints. She would really like to know what is causing the shaking. ED course: VS notable for hypotension of 77/39, bradycardia in the 50s b/w notable for: K 6.2, Cr 1.5, eGFR 37.7. Remaining cbc, cmp, Mg, and TSH were all unimpressive/wnl trop minimally elevated at 16.5 (baseline) imaging: CT Head, C-spine, and thoracic spine all unremarkable for acute pathology Patient was given Tylenol, albuterol treatment, calcium, IV lorazepam, IVF, IV furosemide and admitted to hospitalist service. General: NAD, well nourished, well developed, non-toxic appearing Eyes: PERRL, anicteric sclera, no conjunctival injection Nose: nares patent Mouth: slightly dry Neck: supple, trachea midline CV: RRR S1 S2 Pulm: diminished. crackles right base. Abd/GI: + BS, soft, NT, ND, no guarding : no alonzo Ext: no pretibial edema MSK: normal bulk and tone Neuro: exertional tremor (in all extremities when using said extremity, in trunk when sitting up) Psych: anxious mood and affect Skin: Visible skin is warm and dry. Mild petechial rash dorsal right foot/ankle, distal LE excoriations. Distal LLE with erythematous bulla surrounded by scar tissue. Faint bruises on mid and upper back. Pt not fully undressed for exam. # fall/tremor: fall d/t exertional tremor, when asked to sit up in bed seemed somewhat ataxic. CT head neg. consider MRI if PPM is compatible, if not c/s repeat CT head f/u orthostatic vs, may need a little more IVF if BP remains soft PT/OT consult, possible rehab placement # JAVI: pt denies any change in po intake or meds (was not taking any new medication d/t lack of access) dry on exam hold diuretics, avoid nephrotoxins and hypotension monitor strict I/O, daily weight, daily bmp encourage oral intake, will have to be careful with fluid balance # Hyperkalemia: no peaked t-waves suspect d/t diminished renal function, compliance with potassium supplements anticipate improvement with renal recovery if K remains elevated c/s kayexalate or lokelma instead of lasix # UTI: continue abx as prescribed (Cefdinir x 3 days) # hypothyroidism: continue levothyroxine Rest per attested note above. (5) Urinary tract infection Hematuria presence: without hematuria Urinary tract infection type: site unspecified Qualified Code(s): N39.0 - Urinary tract infection, site not spe cified
[2023-05-24] MEDS: [UNRECOGNIZED DRUG - REMARK] SCH ×2 (19:21→23:38)
[2023-05-24 20:12] LABS: BUN Creatinine Ratio 30.9 (10-20); Calcium 8.9 mg/dl (8.6-10.3); Est GFR (African American) 40.8 ml/min; Est GFR (Non-African American) 35.2 ml/min; Potassium 4.9 mmol/L (3.5-5.1)
[2023-05-24] MEDS ORDERED: TORSEMIDE 20 MG TAB PO SCH (21:00)
[2023-05-24] MEDS: MONTELUKAST SODIUM 10 MG TABLET PO SCH (21:04)
[2023-05-24] MEDS: rOPINIRole HCL 0.25 MG TABLET PO SCH (21:04)
[2023-05-24] MEDS: risperiDONE 2 MG TABLET PO SCH (21:04)
[2023-05-24] MEDS: lamoTRIgine 25 MG TAB PO SCH (21:05)
[2023-05-24] MEDS: ADVANCED PROBIOTIC 1250 MG CAPSULE PO SCH (21:05)
[2023-05-24] MEDS: DULoxetine HCL 30 MG CAP PO SCH (21:05)
[2023-05-24] MEDS: CALCITRIOL 0.25 MCG CAPSULE PO SCH (21:05)
[2023-05-24] MEDS: CEFDINIR 300 MG CAP PO SCH (21:06)
[2023-05-24] MEDS: HEPARIN SOD 5,000 UNIT/0.5 ML VIAL SQ SCH (21:07)
[2023-05-24] MEDS: PANTOprazole 40 MG TAB PO SCH (21:07)
[2023-05-24] MEDS: DESIPRAMINE HCL 50 MG TAB PO SCH (21:10)
[2023-05-24] MEDS: PREGABALIN 100 MG CAP PO SCH (21:12)
[2023-05-24] MEDS ORDERED: DESIPRAMINE HCL 50 MG TAB PO SCH (22:00)
[2023-05-25] MEDS ORDERED: diphenhydrAMINE Capsule 25 MG CAP PO ONE ×2 (00:41→09:04)
[2023-05-25 00:43] LABS: Calcium 8.7 mg/dl (8.6-10.3); Creatinine Clr Calc Pharmacy 31.5 ml/min; Est GFR (African American) 37.2 ml/min; Est GFR (Non-African American) 32.1 ml/min; Potassium 4.4 mmol/L (3.5-5.1)
[2023-05-25] MEDS: LEVOTHYROXINE SODIUM 88 MCG TABLET PO SCH (06:03)
[2023-05-25] MEDS: DESIPRAMINE HCL 50 MG TAB PO SCH ×4 (06:03→21:20)
[2023-05-25] MEDS: HEPARIN SOD 5,000 UNIT/0.5 ML VIAL SQ SCH ×3 (06:04→21:21)
[2023-05-25 06:25] LABS: Hematocrit (blood only) 34.3 % (37.0-47.0); Mean Corpuscular Hemoglobin 28.6 pg (25.0-34.0); Mean Corpuscular Hgb Conc 32.1 g/dL (32.0-36.0); Mean Corpuscular Volume 89.3 fL (80.0-100.0); Mean Platelet Volume 10.3 fL (9.4-12.4); Platelet Count 151 K/uL (130-400); RDW Coefficient of Variation 17.2 % (11.5-14.5); RDW Standard Deviation 56.2 fL (36.4-46.3); Red Blood Count 3.84 M/uL (4.20-5.40); White Blood Count 6.72 K/ul (4.8-10.8)
[2023-05-25 06:45] LABS: BUN Creatinine Ratio 31.2 (10-20); Calcium 8.5 mg/dl (8.6-10.3); Creatinine Clr Calc Pharmacy 36.6 ml/min; Est GFR (African American) 44.8 ml/min; Est GFR (Non-African American) 38.6 ml/min; Potassium 4.2 mmol/L (3.5-5.1)
[2023-05-25] MEDS: CALCIUM CARBONATE 500 MG CHEWABLE TAB PO SCH ×2 (08:41→18:01)
[2023-05-25] MEDS: PANTOprazole 40 MG TAB PO SCH ×2 (08:43→21:19)
[2023-05-25] MEDS: CALCITRIOL 0.25 MCG CAPSULE PO SCH ×2 (08:43→21:18)
[2023-05-25] MEDS: lamoTRIgine 25 MG TAB PO SCH ×2 (08:43→21:19)
[2023-05-25] MEDS: CEFDINIR 300 MG CAP PO SCH ×2 (08:43→21:18)
[2023-05-25] MEDS: valACYclovir HCL 500 MG TABLET PO SCH (08:44)
[2023-05-25] MEDS: CHOLECALCIFEROL 1,000 UNITS 25 MCG TAB PO SCH (08:44)
[2023-05-25] MEDS: CEROVITE ADV FORMULA TAB PO SCH (08:45)
[2023-05-25] MEDS: FLUTICASONE FUROATE 100MCG 14 PUFFS/INHALER INH SCH (08:45)
[2023-05-25] MEDS: VIBEGRON 75 MG TAB PO SCH (08:46)
[2023-05-25] MEDS: ROSUVASTATIN CALCIUM 10 MG TAB PO SCH (08:46)
[2023-05-25] MEDS: UMECLIDINIUM/VILANTEROL 62.5/25MCG 7 PUFFS/INHALER INH SCH (08:46)
[2023-05-25] MEDS: ESCITALOPRAM OXALATE 20 MG TAB PO SCH (08:46)
[2023-05-25] MEDS: CYANOCOBALAMIN (B-12) 500 MCG TABLET PO SCH (08:47)
--- NOTE | 2023-05-25 09:04 | Hospitalist Progress Note ---
Date of Service May 25, 2023 Assessment & Plan (1) Hyperkalemia: (2) JAVI (acute kidney injury): Plan: Admitted to telemetry Patient presenting from home with reports of tremor, generalized weakness, fall. Recently admitted to [facility] 05/20 through 05/22 for fall, weakness, UTI, hypokalemia. Potassium was replaced during admission however no adjustments were made in her medications. In the ED, labs show K+ 6.2. Patient was treated with albuterol treatment, IVF, IV Lasix, IV calcium. Creatinine mildly elevated from baseline at 1.3 Received 1 L IVF in ED held on additional IVF on admission given history of diastolic CHF. Hold home torsemide and potassium supplementation pending a.m. labs. This AM k level 4.4 Reviewed nephrology note from 04/2023 - pt is now down to torsemide daily prn Previously she was on torsemide 40 bid then on 20 bid - need to discuss with the pt how she takes the med. On med rec it appears as 40 bid still - so likely wasn't corrected Currently while laying down she feels well. Reports she walked to bathroom w/ assistance and did not feel increased weakness, lightheadedness, etc. Cont. to closely monitor, Recheck K level tmrw AM (3) Fall: Plan: Head, C-spine, thoracic CTs unremarkable PT/OT, case management consult --patient may benefit from SNF placement (4) Tremor: Plan: Tremor/ "shakiness" seems to occur when patient is trying to sit up or exert herself -- ?? if due to weakness from deconditioning from recent hospital admission PT/OT evals Consider additional work up with brain MRI if persistent (5) Urinary tract infection: Plan: During recent admission, patient diagnosed with E. coli UTI Discharged on 3 days of cefdinir however patient has not picked up the prescription yet. Will order cefdinir 3 days to complete course. (6) Chronic diastolic (congestive) heart failure: Plan: Holding torsemide due to mild JAVI (7) Pancreatic insufficiency: Plan: No acute issues, continue Creon (8) Sinus node dysfunction: (9) Status post placement of cardiac pacemaker: Plan: No acute issues (10) Hypothyroidism: Plan: Continue levothyroxine (11) Complex sleep apnea syndrome: Plan: BiPAP as per home setting DVT PROPHYLAXIS SQ heparin Admission and Anticipated Discharge Date Admission Date: May 24, 2023 Subjective Pt seen in follow up of fall, "shakiness", hyperkalemia Recently admitted w/ UTI Currently laying in bed in NAD, K level normal today She reports skin itchiness over her shins No fever, chills, chest pain, shortness of breath, or abd. pain Review of Systems Review of Systems: All systems reviewed & are unremarkable except as noted in Subjective Physical Exam Physical Exam: General:NAD, well nourished, well developed, non-toxic appearing Eyes: PERRL, anicteric sclera, no conjunctival injection Nose:nares patent Mouth:slightly dry Neck:supple CV:RRR S1 S2 Pulm:diminished. crackles right base. Abd/GI:+ BS, soft, NT, ND, no guarding Ext:no pretibial edema MSK:normal bulk and tone Neuro:awake, alert, answers appropriately, moves extremities , no tremor noted Skin:Visible skin is warm and dry. Mild petechial rash dorsal right foot/ankle, distal LE excoriations. Results & Data Results & Data Vital Signs (Past 12 Hours) Vital Signs Temp Pulse Resp BP Pulse Ox O2 Del Method 05/25/23 07:50 36.5 C 73 16 112/68 96 Room Air 05/25/23 03:00 36.8 C 55 L 15 106/69 94 Room Air 05/24/23 23:00 36.4 C L 54 L 14 108/66 98 Room Air Laboratory Results 05/25/23 05/25/23 05/24/23 Range/Units 06:04 06:04 23:29 WBC 6.72 (4.8-10.8) K/ul RBC 3.84 L (4.20-5.40) M/uL Hgb 11.0 L (12.0-16.0) g/dl POC Hgb (12.0-16.0) g/dl Hct 34.3 L (37.0-47.0) % POC Hct (37-47) % MCV 89.3 (80.0-100.0) fL MCH 28.6 (25.0-34.0) pg MCHC 32.1 (32.0-36.0) g/dL RDW Std Deviation 56.2 H (36.4-46.3) fL RDW Coeff of David 17.2 H (11.5-14.5) % Plt Count 151 (130-400) K/uL MPV 10.3 (9.4-12.4) fL Immature Gran % (Auto) % Neut % (Auto) % Lymph % (Auto) % [place] % (Auto) % Eos % (Auto) % Baso % (Auto) % Neut # (Auto) (1.40-6.50) K/uL Lymph # (Auto) (1.2-3.4) K/uL [place] # (Auto) (0.11-0.59) K/uL Eos # (Auto) (0-0.50) K/uL Baso # (Auto) (0-0.2) K/uL Immature Gran # (Auto) (0.01-0.20) K/uL PT (9.0-12.0) Seconds INR (0.9-1.1) POC Sodium (135-144) mmol/L Sodium 142 141 (136-145) mmol/L POC Potassium (3.3-5.0) mmol/L Potassium 4.2 4.4 (3.5-5.1) mmol/L POC Chloride (101-112) mmol/L Chloride 111 H 108 H (98-107) mmol/L Carbon Dioxide 26 26 (21-32) mmol/L POC Total CO2 (24-31) mmol/L Anion Gap 5 7 (3-11) POC Anion Gap (16-25) mmol/L POC BUN (7-18) mg/dl BUN 43 H 45 H (6-23) mg/dl Creatinine 1.38 H 1.61 H (0.6-1.2) mg/dl POC Creatinine (0.6-1.3) mg/dl Est Cr Clr Drug Dosing 36.6 31.5 ml/min Est GFR ( Amer) 44.8 37.2 ml/min Est GFR (Non-Af Amer) 38.6 32.1 ml/min BUN/Creatinine Ratio 31.2 H 28.0 H (10-20) Glucose 101 H 120 H (70-99(Fasting)) mg/dl POC Glucose (70-99) mg/dl POC Glucose (other) (70-99) mg/dl Calcium 8.5 L 8.7 (8.6-10.3) mg/dl POC Ioniz Calcium Krystyna (1.12-1.32) mmol/l Magnesium (1.7-2.4) mg/dl Total Bilirubin (0.2-1.0) mg/dl AST (13-39) U/L ALT (7-52) U/L Alkaline Phosphatase (34-104) U/L Troponin I High Sens (0-14) pg/ml Total Protein (6.0-8.3) gm/dl Albumin (3.4-5.0) gm/dl Globulin (2.5-4.0) gm/dl Albumin/Globulin Ratio (0.9-2) TSH (0.300-4.500) uIu/ml Urine Color Urine Appearance (Clear) Urine pH (4.5-7.5) Ur Specific [place] (1.000-1.030) Urine Protein (Negative) Urine Glucose (UA) (Negative) Urine Ketones (Negative) Urine Blood (Negative) Urine Nitrite (Negative) Urine Bilirubin (Negative) Urine Urobilinogen (Negative) Ur Leukocyte Esterase (Negative) Urine WBC (Auto) (0-5) /hpf Urine RBC (Auto) (0-4) /hpf U Hyaline Cast (Auto) (0-5) /lpf U Epithel Cells (Auto) (0-5) /lpf Urine Bacteria (Auto) (Negative) 05/24/23 05/24/23 05/24/23 Range/Units 19:11 15:10 15:10 WBC (4.8-10.8) K/ul RBC (4.20-5.40) M/uL Hgb (12.0-16.0) g/dl POC Hgb (12.0-16.0) g/dl Hct (37.0-47.0) % POC Hct (37-47) % MCV (80.0-100.0) fL MCH (25.0-34.0) pg MCHC (32.0-36.0) g/dL RDW Std Deviation (36.4-46.3) fL RDW Coeff of David (11.5-14.5) % Plt Count (130-400) K/uL MPV (9.4-12.4) fL Immature Gran % (Auto) % Neut % (Auto) % Lymph % (Auto) % [place] % (Auto) % Eos % (Auto) % Baso % (Auto) % Neut # (Auto) (1.40-6.50) K/uL Lymph # (Auto) (1.2-3.4) K/uL [place] # (Auto) (0.11-0.59) K/uL Eos # (Auto) (0-0.50) K/uL Baso # (Auto) (0-0.2) K/uL Immature Gran # (Auto) (0.01-0.20) K/uL PT (9.0-12.0) Seconds INR (0.9-1.1) POC Sodium (135-144) mmol/L Sodium 139 137 (136-145) mmol/L POC Potassium (3.3-5.0) mmol/L Potassium 4.9 5.9 H (3.5-5.1) mmol/L POC Chloride (101-112) mmol/L Chloride 109 H 105 (98-107) mmol/L Carbon Dioxide 25 26 (21-32) mmol/L POC Total CO2 (24-31) mmol/L Anion Gap 5 6 (3-11) POC Anion Gap (16-25) mmol/L POC BUN (7-18) mg/dl BUN 46 H 45 H (6-23) mg/dl Creatinine 1.49 H 1.31 H (0.6-1.2) mg/dl POC Creatinine (0.6-1.3) mg/dl Est Cr Clr Drug Dosing 34.0 39.2 ml/min Est GFR ( Amer) 40.8 47.7 ml/min Est GFR (Non-Af Amer) 35.2 41.1 ml/min BUN/Creatinine Ratio 30.9 H 34.4 H (10-20) Glucose 135 H 107 H (70-99(Fasting)) mg/dl POC Glucose (70-99) mg/dl POC Glucose (other) (70-99) mg/dl Calcium 8.9 9.4 (8.6-10.3) mg/dl POC Ioniz Calcium Krystyna (1.12-1.32) mmol/l Magnesium (1.7-2.4) mg/dl Total Bilirubin (0.2-1.0) mg/dl AST (13-39) U/L ALT (7-52) U/L Alkaline Phosphatase (34-104) U/L Troponin I High Sens (0-14) pg/ml Total Protein (6.0-8.3) gm/dl Albumin (3.4-5.0) gm/dl Globulin (2.5-4.0) gm/dl Albumin/Globulin Ratio (0.9-2) TSH (0.300-4.500) uIu/ml Urine Color Yellow Urine Appearance Clear (Clear) Urine pH 8.0 H (4.5-7.5) Ur Specific [place] 1.007 (1.000-1.030) Urine Protein Negative (Negative) Urine Glucose (UA) Negative (Negative) Urine Ketones Negative (Negative) Urine Blood Negative (Negative) Urine Nitrite Negative (Negative) Urine Bilirubin Negative (Negative) Urine Urobilinogen Negative (Negative) Ur Leukocyte Esterase 1+ H (Negative) Urine WBC (Auto) 5-10 H (0-5) /hpf Urine RBC (Auto) 0-4 (0-4) /hpf U Hyaline Cast (Auto) 0 (0-5) /lpf U Epithel Cells (Auto) 0-5 (0-5) /lpf Urine Bacteria (Auto) Negative (Negative) 05/24/23 05/24/23 05/24/23 Range/Units 13:15 13:14 13:08 WBC (4.8-10.8) K/ul RBC (4.20-5.40) M/uL Hgb (12.0-16.0) g/dl POC Hgb 12.6 (12.0-16.0) g/dl Hct (37.0-47.0) % POC Hct 37 (37-47) % MCV (80.0-100.0) fL MCH (25.0-34.0) pg MCHC (32.0-36.0) g/dL RDW Std Deviation (36.4-46.3) fL RDW Coeff of David (11.5-14.5) % Plt Count (130-400) K/uL MPV (9.4-12.4) fL Immature Gran % (Auto) % Neut % (Auto) % Lymph % (Auto) % [place] % (Auto) % Eos % (Auto) % Baso % (Auto) % Neut # (Auto) (1.40-6.50) K/uL Lymph # (Auto) (1.2-3.4) K/uL [place] # (Auto) (0.11-0.59) K/uL Eos # (Auto) (0-0.50) K/uL Baso # (Auto) (0-0.2) K/uL Immature Gran # (Auto) (0.01-0.20) K/uL PT (9.0-12.0) Seconds INR (0.9-1.1) POC Sodium 137 (135-144) mmol/L Sodium (136-145) mmol/L POC Potassium 6.2 H* (3.3-5.0) mmol/L Potassium (3.5-5.1) mmol/L POC Chloride 104 (101-112) mmol/L Chloride (98-107) mmol/L Carbon Dioxide (21-32) mmol/L POC Total CO2 24 (24-31) mmol/L Anion Gap (3-11) POC Anion Gap 17.0 (16-25) mmol/L POC BUN 41 H (7-18) mg/dl BUN (6-23) mg/dl Creatinine (0.6-1.2) mg/dl POC Creatinine 1.5 H (0.6-1.3) mg/dl Est Cr Clr Drug Dosing ml/min Est GFR ( Amer) ml/min Est GFR (Non-Af Amer) ml/min BUN/Creatinine Ratio (10-20) Glucose (70-99(Fasting)) mg/dl POC Glucose 94 (70-99) mg/dl POC Glucose (other) 94 (70-99) mg/dl Calcium (8.6-10.3) mg/dl POC Ioniz Calcium Krystyna 1.16 (1.12-1.32) mmol/l Magnesium (1.7-2.4) mg/dl Total Bilirubin (0.2-1.0) mg/dl AST (13-39) U/L ALT (7-52) U/L Alkaline Phosphatase (34-104) U/L Troponin I High Sens (0-14) pg/ml Total Protein (6.0-8.3) gm/dl Albumin (3.4-5.0) gm/dl Globulin (2.5-4.0) gm/dl Albumin/Globulin Ratio (0.9-2) TSH 1.039 (0.300-4.500) uIu/ml Urine Color Urine Appearance (Clear) Urine pH (4.5-7.5) Ur Specific [place] (1.000-1.030) Urine Protein (Negative) Urine Glucose (UA) (Negative) Urine Ketones (Negative) Urine Blood (Negative) Urine Nitrite (Negative) Urine Bilirubin (Negative) Urine Urobilinogen (Negative) Ur Leukocyte Esterase (Negative) Urine WBC (Auto) (0-5) /hpf Urine RBC (Auto) (0-4) /hpf U Hyaline Cast (Auto) (0-5) /lpf U Epithel Cells (Auto) (0-5) /lpf Urine Bacteria (Auto) (Negative) 05/24/23 05/24/23 05/24/23 Range/Units 13:08 13:08 13:08 WBC 8.47 (4.8-10.8) K/ul RBC 4.23 (4.20-5.40) M/uL Hgb 12.2 (12.0-16.0) g/dl POC Hgb (12.0-16.0) g/dl Hct 37.2 (37.0-47.0) % POC Hct (37-47) % MCV 87.9 (80.0-100.0) fL MCH 28.8 (25.0-34.0) pg MCHC 32.8 (32.0-36.0) g/dL RDW Std Deviation 54.8 H (36.4-46.3) fL RDW Coeff of David 17.0 H (11.5-14.5) % Plt Count 155 (130-400) K/uL MPV 9.9 (9.4-12.4) fL Immature Gran % (Auto) 0.5 % Neut % (Auto) 69.3 % Lymph % (Auto) 17.6 % [place] % (Auto) 9.2 % Eos % (Auto) 2.8 % Baso % (Auto) 0.6 % Neut # (Auto) 5.87 (1.40-6.50) K/uL Lymph # (Auto) 1.49 (1.2-3.4) K/uL [place] # (Auto) 0.78 H (0.11-0.59) K/uL Eos # (Auto) 0.24 (0-0.50) K/uL Baso # (Auto) 0.05 (0-0.2) K/uL Immature Gran # (Auto) 0.04 (0.01-0.20) K/uL PT 11.6 (9.0-12.0) Seconds INR 1.1 (0.9-1.1) POC Sodium (135-144) mmol/L Sodium 135 L (136-145) mmol/L POC Potassium (3.3-5.0) mmol/L Potassium 6.2 H* (3.5-5.1) mmol/L POC Chloride (101-112) mmol/L Chloride 104 (98-107) mmol/L Carbon Dioxide 26 (21-32) mmol/L POC Total CO2 (24-31) mmol/L Anion Gap 5 (3-11) POC Anion Gap (16-25) mmol/L POC BUN (7-18) mg/dl BUN 47 H (6-23) mg/dl Creatinine 1.36 H (0.6-1.2) mg/dl POC Creatinine (0.6-1.3) mg/dl Est Cr Clr Drug Dosing 37.7 ml/min Est GFR ( Amer) 45.6 ml/min Est GFR (Non-Af Amer) 39.3 ml/min BUN/Creatinine Ratio 34.6 H (10-20) Glucose 93 (70-99(Fasting)) mg/dl POC Glucose (70-99) mg/dl POC Glucose (other) (70-99) mg/dl Calcium 8.7 (8.6-10.3) mg/dl POC Ioniz Calcium Krystyna (1.12-1.32) mmol/l Magnesium 2.2 (1.7-2.4) mg/dl Total Bilirubin 0.4 (0.2-1.0) mg/dl AST 28 (13-39) U/L ALT 22 (7-52) U/L Alkaline Phosphatase 66 (34-104) U/L Troponin I High Sens 16.5 H (0-14) pg/ml Total Protein 6.3 (6.0-8.3) gm/dl Albumin 3.7 (3.4-5.0) gm/dl Globulin 2.6 (2.5-4.0) gm/dl Albumin/Globulin Ratio 1.4 (0.9-2) TSH (0.300-4.500) uIu/ml Urine Color Urine Appearance (Clear) Urine pH (4.5-7.5) Ur Specific [place] (1.000-1.030) Urine Protein (Negative) Urine Glucose (UA) (Negative) Urine Ketones (Negative) Urine Blood (Negative) Urine Nitrite (Negative) Urine Bilirubin (Negative) Urine Urobilinogen (Negative) Ur Leukocyte Esterase (Negative) Urine WBC (Auto) (0-5) /hpf Urine RBC (Auto) (0-4) /hpf U Hyaline Cast (Auto) (0-5) /lpf U Epithel Cells (Auto) (0-5) /lpf Urine Bacteria (Auto) (Negative) Medications Administered Current Inpatient Medications Acetaminophen (Acetaminophen 325 Mg Tab) 650 mg PO Q4H PRN PRN Reason: Pain or Fever Stop: 06/23/23 16:45 Calcitriol (Calcitriol 0.25 Mcg Capsule) 0.5 mcg PO BID [facility] Stop: 06/23/23 20:59 Last Admin: 05/25/23 08:43 Dose: 0.5 mcg Calcium Carbonate (Calcium Carbonate 500 Mg Chewable Tab) 1,000 mg PO BIDM [facility] Stop: 06/24/23 07:59 Last Admin: 05/25/23 08:41 Dose: 1,000 mg Cefdinir (Cefdinir 300 Mg Cap) 300 mg PO BID [facility]; Protocol Stop: 05/27/23 09:01 Last Admin: 05/25/23 08:43 Dose: 300 mg Cyanocobalamin (Cyanocobalamin (B-12) 500 Mcg Tablet) 1,000 mcg PO DAILY [facility] Stop: 06/24/23 08:59 Last Admin: 05/25/23 08:47 Dose: 1,000 mcg Desipramine HCl (Desipramine Hcl 50 Mg Tab) 25 mg PO TID@0700,1200,1700 [facility] Stop: 06/24/23 06:59 Last Admin: 05/25/23 06:03 Dose: 25 mg Desipramine HCl (Desipramine Hcl 50 Mg Tab) 50 mg PO TODAY@2200 [facility] Stop: 06/23/23 21:59 Last Admin: 05/24/23 21:10 Dose: 50 mg Duloxetine HCl (Duloxetine Hcl 30 Mg Cap) 30 mg PO HS [facility] Stop: 06/23/23 20:59 Last Admin: 05/24/23 21:05 Dose: 30 mg Escitalopram Oxalate (Escitalopram Oxalate 20 Mg Tab) 20 mg PO QAM CATE Stop: 06/24/23 08:59 Last Admin: 05/25/23 08:46 Dose: 20 mg Fluticasone Furoate (Fluticasone Furoate 100mcg 14 Puffs/Inhaler) 1 puffs INH DAILY CATE Stop: 06/24/23 08:59 Last Admin: 05/25/23 08:45 Dose: 1 puffs Heparin Sodium (Porcine) (Heparin Sod 5,000 Unit/0.5 Ml Vial) 5,000 units SQ Q8 CATE Stop: 06/23/23 21:59 Last Admin: 05/25/23 06:04 Dose: 5,000 units Lactobacillus Acidophilus (Advanced Probiotic 1250 Mg Capsule) 2 cap PO QPM CATE Stop: 06/23/23 20:59 Last Admin: 05/24/23 21:05 Dose: 2 cap Lamotrigine (Lamotrigine 25 Mg Tab) 25 mg PO BID CATE Stop: 06/23/23 20:59 Last Admin: 05/25/23 08:43 Dose: 25 mg Levothyroxine Sodium (Levothyroxine Sodium 88 Mcg Tablet) 88 mcg PO DAILYBB CATE Stop: 06/24/23 06:29 Last Admin: 05/25/23 06:03 Dose: 88 mcg Lorazepam (Lorazepam 0.5 Mg Tab) 0.5 mg PO BID PRN PRN Reason: Anxiety Stop: 06/23/23 16:59 Metolazone (Metolazone 2.5 Mg Tablet) 2.5 mg PO Q7D CATE Stop: 06/27/23 08:59 Miscellaneous (Colesevelam [Welchol] 625 Mg Tablet- Order Awaiting Action) 1 each N/A QS CATE Stop: 06/24/23 00:00 Last Admin: 05/24/23 23:38 Dose: Not Given Miscellaneous (Wmpjly-Wphyzwgz-Hwspolb [Creon] 24,000-76,000 -120,000 Unit Caps- Order Awaiting Action) 1 each N/A QS [facility] Stop: 06/23/23 18:59 Last Admin: 05/24/23 23:38 Dose: Not Given Montelukast Sodium (Montelukast Sodium 10 Mg Tablet) 10 mg PO HS CATE Stop: 06/23/23 20:59 Last Admin: 05/24/23 21:04 Dose: 10 mg Multivitamins/Minerals (Cerovite Adv Formula Tab) 1 tab PO DAILY CATE Stop: 06/24/23 08:59 Last Admin: 05/25/23 08:45 Dose: 1 tab Oxycodone/Acetaminophen (Oxycodone/Acetaminophen 5mg/325mg Tab) 1 tab PO Q6H PRN PRN Reason: Pain Stop: 06/07/23 16:59 Pantoprazole Sodium (Pantoprazole 40 Mg Tab) 40 mg PO BID CATE Stop: 06/23/23 20:59 Last Admin: 05/25/23 08:43 Dose: 40 mg Pregabalin (Pregabalin 100 Mg Cap) 100 mg PO TID CATE Stop: 06/23/23 20:59 Last Admin: 05/24/23 21:12 Dose: 100 mg Risperidone (Risperidone 2 Mg Tablet) 2 mg PO HS CATE Stop: 06/23/23 20:59 Last Admin: 05/24/23 21:04 Dose: 2 mg Ropinirole HCl (Ropinirole Hcl 0.25 Mg Tablet) 0.5 mg PO HS CATE Stop: 06/23/23 20:59 Last Admin: 05/24/23 21:04 Dose: 0.5 mg Rosuvastatin Calcium (Rosuvastatin Calcium 10 Mg Tab) 10 mg PO QAM CATE Stop: 06/24/23 08:59 Last Admin: 05/25/23 08:46 Dose: 10 mg Torsemide (Torsemide 20 Mg Tab) 40 mg PO BID CATE Stop: 06/23/23 20:59 Umeclidinium/Vilanterol (Umeclidinium/Vilanterol 62.5/25mcg 7 Puffs/Inhaler) 1 puffs INH DAILY CATE Stop: 06/24/23 08:59 Last Admin: 05/25/23 08:46 Dose: 1 puffs Valacyclovir HCl (Valacyclovir Hcl 500 Mg Tablet) 500 mg PO QAM CATE Stop: 06/24/23 08:59 Last Admin: 05/25/23 08:44 Dose: 500 mg Vibegron (Vibegron 75 Mg Tab) 75 mg PO QAM CATE Stop: 06/24/23 08:59 Last Admin: 05/25/23 08:46 Dose: 75 mg Vitamin D (Cholecalciferol 1,000 Units 25 Mcg Tab) 1,000 units PO QAM [facility] Stop: 06/24/23 08:59 Last Admin: 05/25/23 08:44 Dose: 1,000 units (3) Fall Encounter type: initial encounter Qualified Code(s): W19.XXXA - Unspecified fall, initial encounter (5) Urinary tract infection Hematuria presence: without hematuria Urinary tract infection type: site unspecified Qualified Code(s): N39.0 - Urinary tract infection, site not specified
[2023-05-25] MEDS: PREGABALIN 100 MG CAP PO SCH ×3 (09:09→21:18)
[2023-05-25] MEDS: [UNRECOGNIZED DRUG - REMARK] SCH (09:11)
--- NOTE | 2023-05-25 10:10 | Electrocardiogram Report ---
Test Reason : Blood Pressure : / mmHG Vent. Rate : 055 BPM Atrial Rate : 000 BPM P-R Int : 000 ms QRS Dur : 112 ms QT Int : 396 ms P-R-T Axes : 000 -33 042 degrees QTc Int : 379 ms Poor data quality, interpretation may be adversely affected Atrial fibrillation with occasional ventricular-paced complexes and with premature ventricular or katelyn rrantly conducted complexes Left axis deviation Possible Anterolateral infarct , age undetermined Abnormal ECG When compared with ECG of 20-MAY-2023 14:55, No significant change Confirmed by Srikanth Wagner ([id number]) on 05/25/2023 10:09:48 AM Referred By: REFERRED SELF Confirmed By:Srikanth Wagner
--- NOTE | 2023-05-25 12:37 | Electrocardiogram Report ---
Test Reason : Blood Pressure : / mmHG Vent. Rate : 058 BPM Atrial Rate : 058 BPM P-R Int : 206 ms QRS Dur : 118 ms QT Int : 430 ms P-R-T Axes : 041 -33 027 degrees QTc Int : 422 ms Sinus bradycardia Left axis deviation Left ventricular hypertrophy with QRS widening Abnormal ECG When compared with ECG of 20-MAY-2023 14:55, Sinus rhythm has replaced Electronic ventricular pacemaker Confirmed by Srikanth Wagner ([id number] on 05/25/2023 12:37:15 PM Referred By: REFERRED SELF Confirmed By:Srikanth Wagner
[2023-05-25] MEDS: oxyCODONE/ACETAMINOPHEN 5mg/325mg TAB PO PRN (15:39)
[2023-05-25] MEDS: diphenhydrAMINE Capsule 25 MG CAP PO PRN ×2 (18:03→22:20)
[2023-05-25] MEDS: diphenhydrAMINE 2%/ZINC 0.1% CREAM 28.4GM TUBE EXT PRN (18:04)
[2023-05-25] MEDS: PANCREAZE (LIPASE 16,800U) CAP PO SCH (18:04)
[2023-05-25] MEDS: DULoxetine HCL 30 MG CAP PO SCH (21:18)
[2023-05-25] MEDS: ADVANCED PROBIOTIC 1250 MG CAPSULE PO SCH (21:19)
[2023-05-25] MEDS: MONTELUKAST SODIUM 10 MG TABLET PO SCH (21:19)
[2023-05-25] MEDS: risperiDONE 2 MG TABLET PO SCH (21:20)
[2023-05-25] MEDS: rOPINIRole HCL 0.25 MG TABLET PO SCH (21:20)
[2023-05-26] MEDS: LORazepam 0.5 MG TAB PO PRN ×2 (03:06→16:15)
[2023-05-26] MEDS: LEVOTHYROXINE SODIUM 88 MCG TABLET PO SCH (06:06)
[2023-05-26] MEDS: DESIPRAMINE HCL 50 MG TAB PO SCH ×4 (06:06→21:49)
[2023-05-26] MEDS: HEPARIN SOD 5,000 UNIT/0.5 ML VIAL SQ SCH ×3 (06:07→21:47)
[2023-05-26 06:31] LABS: Hematocrit (blood only) 34.1 % (37.0-47.0); Hemoglobin 11.1 g/dl (12.0-16.0); Mean Corpuscular Hemoglobin 28.7 pg (25.0-34.0); Mean Corpuscular Hgb Conc 32.6 g/dL (32.0-36.0); Mean Corpuscular Volume 88.1 fL (80.0-100.0); Mean Platelet Volume 10.2 fL (9.4-12.4); Platelet Count 155 K/uL (130-400); RDW Coefficient of Variation 16.9 % (11.5-14.5); RDW Standard Deviation 54.7 fL (36.4-46.3); Red Blood Count 3.87 M/uL (4.20-5.40); White Blood Count 6.16 K/ul (4.8-10.8)
[2023-05-26 06:46] LABS: BUN Creatinine Ratio 30.8 (10-20); Calcium 8.7 mg/dl (8.6-10.3); Est GFR (African American) 54.7 ml/min; Est GFR (Non-African American) 47.2 ml/min; Magnesium 2.2 mg/dl (1.7-2.4); Phosphorus 3.9 mg/dl (2.5-4.9); Potassium 3.9 mmol/L (3.5-5.1)
[2023-05-26] MEDS: CALCIUM CARBONATE 500 MG CHEWABLE TAB PO SCH ×2 (07:31→17:53)
[2023-05-26] MEDS: PANCREAZE (LIPASE 16,800U) CAP PO SCH ×3 (07:32→17:55)
[2023-05-26] MEDS: PANTOprazole 40 MG TAB PO SCH ×2 (09:19→21:48)
[2023-05-26] MEDS: CEFDINIR 300 MG CAP PO SCH ×2 (09:20→21:47)
[2023-05-26] MEDS: diphenhydrAMINE Capsule 25 MG CAP PO PRN ×2 (09:21→17:52)
[2023-05-26] MEDS: CEROVITE ADV FORMULA TAB PO SCH (09:21)
[2023-05-26] MEDS: CYANOCOBALAMIN (B-12) 500 MCG TABLET PO SCH (09:21)
[2023-05-26] MEDS: VIBEGRON 75 MG TAB PO SCH (09:22)
[2023-05-26] MEDS: valACYclovir HCL 500 MG TABLET PO SCH (09:22)
[2023-05-26] MEDS: ESCITALOPRAM OXALATE 20 MG TAB PO SCH (09:22)
[2023-05-26] MEDS: CALCITRIOL 0.25 MCG CAPSULE PO SCH ×2 (09:23→21:47)
[2023-05-26] MEDS: ROSUVASTATIN CALCIUM 10 MG TAB PO SCH (09:23)
[2023-05-26] MEDS: CHOLECALCIFEROL 1,000 UNITS 25 MCG TAB PO SCH (09:23)
[2023-05-26] MEDS: UMECLIDINIUM/VILANTEROL 62.5/25MCG 7 PUFFS/INHALER INH SCH (09:24)
[2023-05-26] MEDS: FLUTICASONE FUROATE 100MCG 14 PUFFS/INHALER INH SCH (09:24)
[2023-05-26] MEDS: lamoTRIgine 25 MG TAB PO SCH ×2 (09:25→21:48)
[2023-05-26] MEDS: diphenhydrAMINE 2%/ZINC 0.1% CREAM 28.4GM TUBE EXT PRN (09:28)
--- NOTE | 2023-05-26 09:35 | Hospitalist Progress Note ---
Date of Service May 26, 2023 Assessment & Plan (1) Hyperkalemia: (2) JAVI (acute kidney injury): Plan: Admitted to telemetry Patient presenting from home with reports of tremor, generalized weakness, fall. Recently admitted to [facility] 05/20 through 05/22 for fall, weakness, UTI, hypokalemia. Potassium was replaced during admission however no adjustments were made in her medications. In the ED, labs show K+ 6.2. Patient was treated with albuterol treatment, IVF, IV Lasix, IV calcium. Creatinine mildly elevated from baseline at 1.3 Received 1 L IVF in ED held on additional IVF on admission given history of diastolic CHF. Hold home torsemide and potassium supplementation pending a.m. labs. This AM K level normal Reviewed nephrology note from 04/2023 - recommended torsemide daily prn Previously she was on torsemide 40 bid then on 20 bid Discussed this in detail w/ the pt, she is concerned about her hx of CHF. She recalls that her administrative assistant data entry told her she was dehydrated but she does not recall to take torsemide daily prn. She says she weighs herself daily and her weight is reported to pcp office. Currently she feels well and was ambulating w/o issues today. Will give torsemide 20 today. Re-assess fluid status and check K level tmrw. She will need close outpt follow up with her providers. Cont. to closely monitor, Recheck K level tmrw AM (3) Fall: Plan: Head, C-spine, thoracic CTs unremarkable PT/OT, case management consult --patient may benefit from SNF placement (4) Tremor: Plan: Tremor/ "shakiness" seems to occur when patient is trying to sit up or exert herself -- ?? if due to weakness from deconditioning from recent hospital admission PT/OT evals Consider additional work up with brain MRI if persistent (5) Urinary tract infection: Plan: During recent admission, patient diagnosed with E. coli UTI Discharged on 3 days of cefdinir however patient has not picked up the prescription yet. Ordered cefdinir 3 days to complete course. (6) Chronic diastolic (congestive) heart failure: Plan: Holding torsemide due to mild JAVI initially Now Cr 1.17 Will give 20 torsemide today and re-assess Cr and fluid status tmrw (7) Pancreatic insufficiency: Plan: No acute issues, continue Creon (8) Sinus node dysfunction: (9) Status post placement of cardiac pacemaker: Plan: No acute issues (10) Hypothyroidism: Plan: Continue levothyroxine (11) Complex sleep apnea syndrome: Plan: BiPAP as per home setting DVT PROPHYLAXIS SQ heparin Admission and Anticipated Discharge Date Admission Date: May 24, 2023 Subjective Pt seen in follow up of fall, "shakiness", hyperkalemia Recently admitted w/ UTI Currently sitting up in chair in NAD, K level normal today She reports skin itchiness over her shins No fever, chills, chest pain, shortness of breath, or abd. pain Says she was ambulating w/o much difficulty today and feels overall well. Discussed in detail her torsemide. Since last admission she says she takes 2 AM and 1 PM. She weighs herself every AM and this reported to pcp office. I reviewed record - her visit w/ nephrology which recommends only daily as needed and reports pt being dehydrated - pt remembers that she was told she was dehydrated but does not recall only taking daily prn. She is concerned about her hx of CHF. Review of Systems Review of Systems: All systems reviewed & are unremarkable except as noted in Subjective Physical Exam Physical Exam: General:NAD, well nourished, well developed, non-toxic appearing Eyes: PERRL, anicteric sclera, no conjunctival injection Nose:nares patent Neck:supple CV:RRR S1 S2 Pulm:diminished. crackles right base (velcro like sounds - per reviewed outpt pulm. note seems at baseline) Abd/GI:+ BS, soft, NT, ND, no guarding Ext:no pretibial edema MSK:normal bulk and tone Neuro:awake, alert, answers appropriately, moves extremities , no tremor noted Skin:Visible skin is warm and dry. Mild petechial rash dorsal right foot/ankle, distal LE excoriations. Results & Data Results & Data Vital Signs (Past 12 Hours) Vital Signs Temp Pulse Pulse Resp BP BP Pulse Ox 05/26/23 07:26 36.3 C L 74 18 126/75 96 05/26/23 07:35 68 05/26/23 04:06 36.4 C L 69 15 113/72 96 05/25/23 23:00 36.4 C L 70 18 116/71 94 O2 Del Method 05/26/23 07:26 Room Air 05/26/23 07:35 05/26/23 04:06 Room Air 05/25/23 23:00 Room Air Laboratory Results 05/26/23 05/26/23 Range/Units 05:59 05:59 WBC 6.16 (4.8-10.8) K/ul RBC 3.87 L (4.20-5.40) M/uL Hgb 11.1 L (12.0-16.0) g/dl Hct 34.1 L (37.0-47.0) % MCV 88.1 (80.0-100.0) fL MCH 28.7 (25.0-34.0) pg MCHC 32.6 (32.0-36.0) g/dL RDW Std Deviation 54.7 H (36.4-46.3) fL RDW Coeff of David 16.9 H (11.5-14.5) % Plt Count 155 (130-400) K/uL MPV 10.2 (9.4-12.4) fL Sodium 142 (136-145) mmol/L Potassium 3.9 (3.5-5.1) mmol/L Chloride 110 H (98-107) mmol/L Carbon Dioxide 28 (21-32) mmol/L Anion Gap 4 (3-11) BUN 36 H (6-23) mg/dl Creatinine 1.17 (0.6-1.2) mg/dl Est Cr Clr Drug Dosing 43.0 ml/min Est GFR ( Amer) 54.7 ml/min Est GFR (Non-Af Amer) 47.2 ml/min BUN/Creatinine Ratio 30.8 H (10-20) Glucose 99 (70-99(Fasting)) mg/dl Calcium 8.7 (8.6-10.3) mg/dl Phosphorus 3.9 (2.5-4.9) mg/dl Magnesium 2.2 (1.7-2.4) mg/dl Medications Administered Current Inpatient Medications Acetaminophen (Acetaminophen 325 Mg Tab) 650 mg PO Q4H PRN PRN Reason: Pain or Fever Stop: 06/23/23 16:45 Lipase/Protease/Amylase (Pancreaze (Lipase 16,800u) Cap) 5 cap PO TIDM CATE Stop: 06/24/23 16:59 Last Admin: 05/26/23 07:32 Dose: 5 cap Calcitriol (Calcitriol 0.25 Mcg Capsule) 0.5 mcg PO BID [facility] Stop: 06/23/23 20:59 Last Admin: 05/26/23 09:23 Dose: 0.5 mcg Calcium Carbonate (Calcium Carbonate 500 Mg Chewable Tab) 1,000 mg PO BIDM [facility] Stop: 06/24/23 07:59 Last Admin: 05/26/23 07:31 Dose: 1,000 mg Cefdinir (Cefdinir 300 Mg Cap) 300 mg PO BID [facility]; Protocol Stop: 05/27/23 09:01 Last Admin: 05/26/23 09:20 Dose: 300 mg Cyanocobalamin (Cyanocobalamin (B-12) 500 Mcg Tablet) 1,000 mcg PO DAILY [facility] Stop: 06/24/23 08:59 Last Admin: 05/26/23 09:21 Dose: 1,000 mcg Desipramine HCl (Desipramine Hcl 50 Mg Tab) 25 mg PO TID@0700,1200,1700 [facility] Stop: 06/24/23 06:59 Last Admin: 05/26/23 06:06 Dose: 25 mg Desipramine HCl (Desipramine Hcl 50 Mg Tab) 50 mg PO TODAY@2200 [facility] Stop: 06/23/23 21:59 Last Admin: 05/25/23 21:20 Dose: 50 mg Diphenhydramine HCl (Diphenhydramine Capsule 25 Mg Cap) 25 mg PO QID PRN PRN Reason: Itching Stop: 06/24/23 15:51 Last Admin: 05/26/23 09:21 Dose: 25 mg Duloxetine HCl (Duloxetine Hcl 30 Mg Cap) 30 mg PO HS [facility] Stop: 06/23/23 20:59 Last Admin: 05/25/23 21:18 Dose: 30 mg Escitalopram Oxalate (Escitalopram Oxalate 20 Mg Tab) 20 mg PO QAM [facility] Stop: 06/24/23 08:59 Last Admin: 05/26/23 09:22 Dose: 20 mg Fluticasone Furoate (Fluticasone Furoate 100mcg 14 Puffs/Inhaler) 1 puffs INH DAILY [facility] Stop: 06/24/23 08:59 Last Admin: 05/26/23 09:24 Dose: 1 puffs Heparin Sodium (Porcine) (Heparin Sod 5,000 Unit/0.5 Ml Vial) 5,000 units SQ Q8 CATE Stop: 06/23/23 21:59 Last Admin: 05/26/23 06:07 Dose: 5,000 units Lactobacillus Acidophilus (Advanced Probiotic 1250 Mg Capsule) 2 cap PO QPM CATE Stop: 06/23/23 20:59 Last Admin: 05/25/23 21:19 Dose: 2 cap Lamotrigine (Lamotrigine 25 Mg Tab) 25 mg PO BID CATE Stop: 06/23/23 20:59 Last Admin: 05/26/23 09:25 Dose: 25 mg Levothyroxine Sodium (Levothyroxine Sodium 88 Mcg Tablet) 88 mcg PO DAILYBB CATE Stop: 06/24/23 06:29 Last Admin: 05/26/23 06:06 Dose: 88 mcg Lorazepam (Lorazepam 0.5 Mg Tab) 0.5 mg PO BID PRN PRN Reason: Anxiety Stop: 06/23/23 16:59 Last Admin: 05/26/23 03:06 Dose: 0.5 mg Metolazone (Metolazone 2.5 Mg Tablet) 2.5 mg PO Q7D CATE Stop: 06/27/23 08:59 Miscellaneous (Colesevelam [Welchol] 625 Mg Tablet- Order Awaiting Action) 1 each N/A QS CATE Stop: 06/24/23 00:00 Last Admin: 05/26/23 07:33 Dose: Not Given Montelukast Sodium (Montelukast Sodium 10 Mg Tablet) 10 mg PO HS CATE Stop: 06/23/23 20:59 Last Admin: 05/25/23 21:19 Dose: 10 mg Multivitamins/Minerals (Cerovite Adv Formula Tab) 1 tab PO DAILY CATE Stop: 06/24/23 08:59 Last Admin: 05/26/23 09:21 Dose: 1 tab Oxycodone/Acetaminophen (Oxycodone/Acetaminophen 5mg/325mg Tab) 1 tab PO Q6H PRN PRN Reason: Pain Stop: 06/07/23 16:59 Last Admin: 05/25/23 15:39 Dose: 1 tab Pantoprazole Sodium (Pantoprazole 40 Mg Tab) 40 mg PO BID CATE Stop: 06/23/23 20:59 Last Admin: 05/26/23 09:19 Dose: 40 mg Pregabalin (Pregabalin 100 Mg Cap) 100 mg PO TID [facility] Stop: 06/23/23 20:59 Last Admin: 05/25/23 21:18 Dose: 100 mg Risperidone (Risperidone 2 Mg Tablet) 2 mg PO [facility] Stop: 06/23/23 20:59 Last Admin: 05/25/23 21:20 Dose: 2 mg Ropinirole HCl (Ropinirole Hcl 0.25 Mg Tablet) 0.5 mg PO [facility] Stop: 06/23/23 20:59 Last Admin: 05/25/23 21:20 Dose: 0.5 mg Rosuvastatin Calcium (Rosuvastatin Calcium 10 Mg Tab) 10 mg PO QAM [facility] Stop: 06/24/23 08:59 Last Admin: 05/26/23 09:23 Dose: 10 mg Torsemide (Torsemide 20 Mg Tab) 40 mg PO BID [facility] Stop: 06/23/23 20:59 Umeclidinium/Vilanterol (Umeclidinium/Vilanterol 62.5/25mcg 7 Puffs/Inhaler) 1 puffs INH DAILY [facility] Stop: 06/24/23 08:59 Last Admin: 05/26/23 09:24 Dose: 1 puffs Valacyclovir HCl (Valacyclovir Hcl 500 Mg Tablet) [facility] Stop: 06/24/23 08:59 Last Admin: 05/26/23 09:22 Dose: 500 mg Vibegron (Vibegron 75 Mg Tab) 75 mg PO QAM [facility] Stop: 06/24/23 08:59 Last Admin: 05/26/23 09:22 Dose: 75 mg Vitamin D (Cholecalciferol 1,000 Units 25 Mcg Tab) 1,000 units [facility] Stop: 06/24/23 08:59 Last Admin: 05/26/23 09:23 Dose: 1,000 units Zinc Acetate/Diphenhydramine (Diphenhydramine 2%/Zinc 0.1% Cream 28.4gm Tube) 1 appln EXT BID PRN PRN Reason: Itching Stop: 06/24/23 09:04 Last Admin: 05/26/23 09:28 Dose: 1 appln (3) Fall Encounter type: initial encounter Qualified Code(s): W19.XXXA - Unspecified fall, initial encounter (5) Urinary tract infection Hematuria presence: without hematuria Urinary tract infection type: site unspecified Qualified Code(s): N39.0 - Urinary tract infection, site not specified
[2023-05-26] MEDS: PREGABALIN 100 MG CAP PO SCH ×3 (10:54→21:47)
[2023-05-26] MEDS: oxyCODONE/ACETAMINOPHEN 5mg/325mg TAB PO PRN ×2 (12:28→21:53)
[2023-05-26] MEDS: TORSEMIDE 10 MG TAB PO SCH (17:52)
[2023-05-26] MEDS: HYDROCORTISONE 1% OINT 30 GM TUBE EXT PRN (17:56)
[2023-05-26] MEDS: DULoxetine HCL 30 MG CAP PO SCH (21:47)
[2023-05-26] MEDS: MONTELUKAST SODIUM 10 MG TABLET PO SCH (21:48)
[2023-05-26] MEDS: ADVANCED PROBIOTIC 1250 MG CAPSULE PO SCH (21:48)
[2023-05-26] MEDS: risperiDONE 2 MG TABLET PO SCH (21:49)
[2023-05-26] MEDS: rOPINIRole HCL 0.25 MG TABLET PO SCH (21:49)
[2023-05-27] MEDS: diphenhydrAMINE Capsule 25 MG CAP PO PRN (05:01)
[2023-05-27] MEDS: LEVOTHYROXINE SODIUM 88 MCG TABLET PO SCH (06:20)
[2023-05-27] MEDS: HEPARIN SOD 5,000 UNIT/0.5 ML VIAL SQ SCH ×2 (06:21→14:07)
[2023-05-27] MEDS: oxyCODONE/ACETAMINOPHEN 5mg/325mg TAB PO PRN (06:21)
[2023-05-27] MEDS: DESIPRAMINE HCL 50 MG TAB PO SCH ×2 (06:21→12:30)
[2023-05-27] MEDS: lamoTRIgine 25 MG TAB PO SCH (08:04)
[2023-05-27] MEDS: PANTOprazole 40 MG TAB PO SCH (08:04)
[2023-05-27] MEDS: CALCITRIOL 0.25 MCG CAPSULE PO SCH (08:04)
[2023-05-27] MEDS: TORSEMIDE 10 MG TAB PO SCH (08:05)
[2023-05-27] MEDS: CYANOCOBALAMIN (B-12) 500 MCG TABLET PO SCH (08:05)
[2023-05-27] MEDS: PANCREAZE (LIPASE 16,800U) CAP PO SCH ×2 (08:05→12:30)
[2023-05-27] MEDS: CALCIUM CARBONATE 500 MG CHEWABLE TAB PO SCH (08:06)
[2023-05-27] MEDS: ROSUVASTATIN CALCIUM 10 MG TAB PO SCH (08:06)
[2023-05-27] MEDS: UMECLIDINIUM/VILANTEROL 62.5/25MCG 7 PUFFS/INHALER INH SCH (08:06)
[2023-05-27] MEDS: ESCITALOPRAM OXALATE 20 MG TAB PO SCH (08:06)
[2023-05-27] MEDS: CHOLECALCIFEROL 1,000 UNITS 25 MCG TAB PO SCH (08:06)
[2023-05-27] MEDS: CEROVITE ADV FORMULA TAB PO SCH (08:06)
[2023-05-27] MEDS: valACYclovir HCL 500 MG TABLET PO SCH (08:06)
[2023-05-27] MEDS: VIBEGRON 75 MG TAB PO SCH (08:06)
[2023-05-27] MEDS: FLUTICASONE FUROATE 100MCG 14 PUFFS/INHALER INH SCH (08:06)
[2023-05-27] MEDS: CEFDINIR 300 MG CAP PO SCH (08:07)
[2023-05-27 08:10] LABS: Hematocrit (blood only) 35.3 % (37.0-47.0); Hemoglobin 11.5 g/dl (12.0-16.0); Mean Corpuscular Hemoglobin 28.6 pg (25.0-34.0); Mean Corpuscular Hgb Conc 32.6 g/dL (32.0-36.0); Mean Corpuscular Volume 87.8 fL (80.0-100.0); Mean Platelet Volume 10.2 fL (9.4-12.4); Platelet Count 152 K/uL (130-400); RDW Coefficient of Variation 16.8 % (11.5-14.5); RDW Standard Deviation 54.6 fL (36.4-46.3); Red Blood Count 4.02 M/uL (4.20-5.40); White Blood Count 5.41 K/ul (4.8-10.8)
[2023-05-27] MEDS: PREGABALIN 100 MG CAP PO SCH ×2 (08:14→14:40)
[2023-05-27 08:53] LABS: BUN Creatinine Ratio 28.5 (10-20); Calcium 8.5 mg/dl (8.6-10.3); Creatinine Clr Calc Pharmacy 41.7 ml/min; Est GFR (African American) 51.5 ml/min; Est GFR (Non-African American) 44.4 ml/min; Magnesium 1.9 mg/dl (1.7-2.4); Phosphorus 4.4 mg/dl (2.5-4.9); Potassium 3.6 mmol/L (3.5-5.1)
[2023-05-27] MEDS: HYDROCORTISONE 1% OINT 30 GM TUBE EXT PRN (10:17)
[2023-05-27] MEDS ORDERED: diphenhydrAMINE Capsule 25 MG CAP PO PRN (11:33)
[2023-05-27] MEDS ORDERED: diphenhydrAMINE Capsule 25 MG CAP PO ONE (11:33)
[2023-05-27] MEDS ORDERED: CETIRIZINE HCL 10 MG TABLET PO SCH (11:45)
[2023-05-27] MEDS ORDERED: POTASSIUM CHLORIDE CRTAB 20 MEQ TABCR PO SCH (11:45)
[2023-05-27] MEDS ORDERED: TORSEMIDE 10 MG TAB PO SCH (21:00)
[2023-05-28] MEDS ORDERED: metOLazone 2.5 MG TABLET PO SCH (09:00)
== END 2023-05-27 15:11 | DRG 641 ==
LOC: ED 12:51 → SUATTDRO 14:54 → 2E 14:54

== ENCOUNTER 2023-05-29 18:57 | Inpatient (IN) ==
[2023-05-29] MEDS ORDERED: HYDROmorphone INJ 0.5 MG/0.5 ML SYR IV STA (19:11)
[2023-05-29] MEDS ORDERED: ONDANSETRON INJ 2 MG/ML 2 ML VIAL IV STA (19:11)
--- NOTE | 2023-05-29 19:14 | Emergency Department Note ---
Impression & Plan Fall, Back pain, Hypokalemia ED Provider Note NAME: JOSHUA ZAVALA AGE: 72 SEX: F : 1950 ARRIVES VIA: Ambulance INFORMANT: Patient ED PROVIDER(S): Pavel Alarcon DO CHIEF COMPLAINT: Fall HPI: Patient is a 72-year-old female who presents to the to the ER with a past medical history of achy, asthma, junctional rhythm for a fall. She notes she went to get up off the toilet and felt lightheaded and fell. She hit her back. She has fallen 4 times in the past 2 weeks. She denies any headache or neck pain. No chest pain or shortness of breath preceding or following this event. No belly pain, nausea, vomiting, or diarrhea. No dysuria, urgency, or frequency. No other exacerbating or remitting factors. Majority of her pain is in her mid thoracic spine. PAST MEDICAL HISTORY:See Below PAST SURGICAL HISTORY:See Below FAMILY HISTORY:See Below SOCIAL HISTORY:See Below HOME MEDICATIONS:See Below ALLERGIES:See Below VITALS:See Below PHYSICAL EXAMINATION: GENERAL: alert, well appearing, well nourished, no distress, non-toxic HEAD: normal cephalic, atraumatic EYE EXAM: normal conjunctiva, PERRL and EOM's grossly intact OROPHARYNX: no exudate, no erythema, lips, buccal mucosa, and tongue normal and mucous membranes are moist NECK: supple, no nuchal rigidity, no adenopathy, non-tender CHEST: stable to compression anteriorly and posteriorly LUNGS: clear to auscultation. Normal chest wall mechanics HEART: no murmurs, S1 normal and S2 normal ABDOMEN: abdomen soft, non-tender, normo-active bowel sounds, no masses, no rebound or guarding. PELVIS: stable to compression anteriorly and posteriorly BACK: Back is symmetrical on inspection and there is no deformity, midline tenderness in the mid thoracic region UPPER EXTREMITIES: full active and passive range of motion of all joints without tenderness to palpation LOWER EXTREMITIES: full active and passive range of motion of all joints without tenderness to palpation NEURO EXAM: Normal sensorium, cranial nerves II-XII grossly intact, normal speech, no gross weakness of arms, no gross weakness of legs. GCS: 15. MEDICAL DECISION MAKING: Patient is a 72-year-old female who presents ER following a fall and feeling lightheaded. IV was established blood work was obtained. External records reviewed. Labs show no significant leukocytosis. Mild anemia 11.1. BMP with mild hypokalemia 3.3. LFTs bilirubin was unremarkable. Lipase was normal. Troponin negative. UA was clean. CT of the head cervical spine and thoracic spine showed no acute fractures. Patient was given IV morphine. Updated bedside. Cervical collar cleared. Discussed with the hospitalist due to the pain in her back for observation and possible placement with a recurrent recent falls. Triage Nursing notes reviewed. Limited review of prior medical records performed Vital Signs: reviewed and remarkable for no significant abnormalities Differential diagnosis: Differential diagnoses include major intracranial, cervical, spinal, thoracic, abdominal, pelvic and neurologic injury. Fracture, contusion, sprain, strain, laceration, abrasions included as well. ER treatment provided: See below Diagnostics interpreted by me include EKG and cardiac monitoring as listed below: -Cardiac Monitoring: An order was placed for continuous cardiac monitoring. The monitor shows a rate of 70 with sinus rhythm. -ECG: Sinus rhythm with first-degree AV block rate of 64 Left axis No PVCs QTc 470 -Laboratory studies:Interpreted by me as stated above in MDM and shown below. Imaging studies: Xrays: As interpreted by me:none CTs show: CT head shows no obvious large bleed per my read CT of the cervical spine and thoracic spine were unremarkable Consultation(s): As described in MDM Procedures:none Critical Care: None Past Med/Surg History Medical History Asthma Atherosclerosis of both lower extremities Bilateral nephrolithiasis Bronchiectasis Chronic diastolic (congestive) heart failure [place] [facility] [place] Chronic kidney disease stage 3b Chronic sinusitis Chronic urinary tract infection Chronic venous insufficiency Complex sleep apnea syndrome COPD (chronic obstructive pulmonary disease) "Well controlled" Depression Fall GERD without esophagitis H/O concussion Remote hx "a long time ago" History of anemia History of DVT (deep vein thrombosis) Hyperlipidemia per records Hypothyroidism ILD (interstitial lung disease) Incisional hernia Abdominal (from multiple surgeries/feeding tube) Junctional bradycardia Kidney stones Lumbar stenosis Lumbar transverse process fracture Pt reports lower back detioriating - can't lie flat/sleep on a chair MRSA (methicillin resistant staph aureus) culture positive Hx (Left wrist) Had 3 nasal swab and all negative (through [facility] per pt) Nocturnal hypoxemia Obesity LARRY treated with BiPAP Osteoarthritis of left knee Osteoporosis Pacemaker Medtronic, implanted 12/2022 (bradycardia) Pancreatic insufficiency chronic pancreatitis Peripheral neuropathy Peripheral neuropathy Pernicious anemia (08/08/13) Port-A-Cath in place right side due to poor vascular access PUD (peptic ulcer disease) Had feeding tube for 28 years (has been removed for 11 years) Pulmonary hypertension mild per 07/[address] report Pulmonary nodule seen on imaging study PVC (premature ventricular contraction) Reactive hypoglycemia Right rotator cuff tear Secondary hyperparathyroidism Sepsis 05/2020 @ [facility], urosepsis 2/2 obstructing renal stone, S/P cysto/stent and ESWL Short bowel syndrome Sleep apnea complex sleep apnea, BIPAP (non-compliant) Urinary leakage Vitamin D deficiency Wrist injury Scar tissue surrounding remote wrist ORIF several years ago resulting in intermittent inflammation per pt Surgical History H/O shoulder surgery RT arthroscopy 05/28/2021: LMA#4 atraumatic x 1 + PNB. Anesthesia postop progress note: "Pt denies SOB at this time. Block is functioning well. Vital signs stable and appropriate. Oxygenating well considering block placement and her comorbidities. Plan to discharge home with IS." History of appendectomy History of cardiac cath 08/2019 ([facility])- essentially normal coronary arteries angiographically, no stents History of cholecystectomy History of colonoscopy History of cystoscopy multiple History of esophageal dilatation History of esophagogastroduodenoscopy (EGD) History of gastrointestinal surgery multiple History of joint replacement Rt thumb History of knee replacement procedure of right knee History of open reduction and internal fixation (ORIF) procedure left wrist + manipulation (01/2018) and I&D (10/2019) History of partial gastrectomy History of prior ablation treatment Right LE in January 2020 and left LE 04/18/20 History of sinus surgery History of tonsillectomy and adenoidectomy History of total abdominal hysterectomy and bilateral salpingo-oophorectomy S/P right rotator cuff repair S/P ureteral stent placement Status post laser lithotripsy of ureteral calculus Family History Mother Family history of diabetes mellitus Sister Family history of diabetes mellitus Family history of breast cancer Father Esophageal cancer Other Family history non-contributory No family history of adverse response to anesthesia Social History Smoking Status: Never smoker Second Hand Exposure: No; Do You Dip or Chew Tobacco: No; Hx Alcohol Use: Yes Alcohol type: beer Hx Substance Use: No Preferred Language: Indonesian Communication Ability: Effective Visual Impairment: No Limitations 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: No Beliefs That Will Affect Care: Mu-Ism Mu-Ism Beliefs: orthodox marital status: Single Current Living Situation: Alone Current Living Situation Comment: apartment behind [facility] facility How many Children do You have: 0 Feels Safe at Home: Yes Assistive Devices: Walker Allergies Allergies Allergy/AdvReac Type Severity Reaction Status Date / Time bethanechol Allergy Intermediate RASH, Verified 05/24/23 15:32 "FEELS FUNNY" Cephalosporins Allergy Intermediate RASH, Verified 05/24/23 15:32 DIARRHEA levofloxacin Allergy Intermediate RASH,TURNED Verified 05/24/23 15:32 RED Sulfa (Sulfonamide Allergy Intermediate Generalized Verified 05/24/23 15:32 Antibiotics) Rash ertapenem Allergy Mild RASH Verified 05/24/23 15:32 atropine Allergy Unknown ON [facility] MED Verified 05/24/23 15:32 LIST clindamycin Allergy Unknown Unknown Verified 05/24/23 15:32 dipyridamole Allergy Unknown PERSANTINE--ON Verified 05/24/23 15:32 GMG MED LIST droperidol Allergy Unknown Unknown Verified 05/24/23 15:32 meperidine [From Demerol] Allergy Unknown ? ALLERGY Verified 05/24/23 15:32 ON [facility] MED LIST promethazine Allergy Unknown UNKNOWN Verified 05/24/23 15:32 tobramycin Allergy Unknown UNKNOWN Verified 05/24/23 15:32 aspirin AdvReac Severe BLEEDING Verified 05/24/23 15:32 doxycycline AdvReac Severe severe Verified 05/24/23 15:32 Diarrhea, nausea metolazone AdvReac Severe ELECTROLYTE Verified 05/24/23 15:32 ISSUES--HYPOKALEMIA bupropion AdvReac Intermediate NERVOUS Verified 05/24/23 15:32 REACTION cephalexin AdvReac Intermediate GI SYMPTOMS Verified 05/24/23 15:32 morphine AdvReac Intermediate NERVOUS Verified 05/24/23 15:32 REACTION TO IT nitrofurantoin AdvReac Intermediate Vomiting Verified 05/24/23 15:32 [From Macrobid] prochlorperazine AdvReac Intermediate NERVOUS Verified 05/24/23 15:32 REACTION tedizolid AdvReac Intermediate GI SYMPTOMS Verified 05/24/23 15:32 venlafaxine [From Effexor] AdvReac Intermediate NERVOUS Verified 05/24/23 15:32 REACTION lamotrigine AdvReac Unknown tremors Verified 05/24/23 15:32 Home Meds Home Medications Medication Instructions Recorded Confirmed colesevelam 625 mg tablet (WelChol) 625 mg PO TID 06/17/18 05/25/23 montelukast 10 mg tablet 10 mg PO HS 06/17/18 05/25/23 (Singulair) ipratropium 0.5 mg-albuterol 3 mg 3 ml inhalation Q4H PRN Shortness 05/05/19 05/24/23 (2.5 mg base)/3 mL nebulization Of Breath Or Wheezing soln kinncp-fxbplwxv-vmurhjo 4 cap PO TID 05/05/19 05/25/23 24,000-76,000-120,000 unit capsule,delayed rel (Creon) omeprazole magnesium 20 mg 20 mg PO BID 05/17/19 05/25/23 tablet,delayed release (Prilosec OTC) risperidone 2 mg tablet 2 mg PO HS 02/27/21 05/25/23 desipramine 50 mg tablet 50 mg PO TID 01/23/22 05/25/23 lorazepam 0.5 mg tablet 0.5 mg PO BID PRN Anxiety 11/06/22 05/24/23 cholecalciferol (vitamin D3) 25 50 mcg PO QAM 11/15/22 05/24/23 mcg (1,000 unit) capsule (Vitamin D3) escitalopram oxalate 20 mg tablet 20 mg PO QAM 11/15/22 05/25/23 metolazone 2.5 mg tablet 2.5 mg PO WK 11/15/22 05/25/23 oxycodone-acetaminophen 5 mg-325 1 tab PO Q6H PRN Pain 11/15/22 05/24/23 mg tablet (Percocet) ropinirole 0.5 mg tablet 0.5 mg PO HS 11/15/22 05/25/23 rosuvastatin 10 mg tablet 10 mg PO QAM 11/15/22 05/25/23 valacyclovir 500 mg tablet 500 mg PO QAM 11/15/22 05/25/23 qzugqygy-exa-lkzeu acid 0.4 1 tab PO DAILY 12/31/22 05/24/23 mg-lycopene 300 mcg-lutein 250 mcg tablet (Cerovite Senior) duloxetine 30 mg capsule,delayed 30 mg PO HS 04/17/23 05/24/23 release vibegron 75 mg tablet (Gemtesa) 75 mg PO QAM 04/17/23 05/25/23 cetirizine 10 mg tablet 10 mg PO DAILY PRN Other 05/20/23 05/24/23 fluticasone propionate 50 1 spray intranasal DAILY PRN 05/20/23 05/24/23 mcg/actuation nasal Congestion spray,suspension Lactobacil.acidophilus-Bifido.animalis 2 cap PO QPM 05/24/23 05/24/23 5 billion cell sprinkle capsule (Probiotic) calcium carbonate 600 mg calcium 1,200 mg PO TID 05/24/23 05/25/23 (1,500 mg) tablet (Calcium) cyanocobalamin (vitamin B-12) 1,000 mcg PO DAILY 05/24/23 05/24/23 1,000 mcg tablet (Vitamin B-12) epinephrine 0.3 mg/0.3 mL 0.3 mg IM DIRECTED PRN Allergic 05/24/23 05/24/23 injection, auto-injector (EpiPen) Reaction fluticasone fur. 100 mcg-umeclid 1 inh inhalation DAILY 05/24/23 05/24/23 62.5 mcg-vilant 25 mcg inhalat.powder (Trelegy Ellipta) lamotrigine 25 mg tablet (Lamictal) 25 mg PO BID 05/24/23 05/24/23 nitroglycerin 0.4 mg sublingual 0.4 mg sublingual DIRECTED PRN 05/24/23 05/24/23 tablet (Nitrostat) Chest Pain desipramine 50 mg tablet 100 mg PO HS 05/25/23 05/25/23 cetirizine 10 mg tablet 10 mg PO DAILY 05/29/23 05/29/23 Previous Rx's Medication Instructions Recorded calcitriol 0.5 mcg capsule 0.5 mcg PO BID #60 caps 12/21/22 albuterol sulfate 90 mcg/actuation 2 inh inhalation Q6H PRN Shortness 02/03/23 breath activated powder inhaler Of Breath Or Wheezing #1 ea pregabalin 100 mg capsule 100 mg PO TID 30 days #90 caps 04/21/23 levothyroxine 88 mcg tablet 88 mcg PO QAM #30 tabs 05/21/23 cetirizine 10 mg tablet 10 mg PO QAM 5 days #5 tabs 05/27/23 diphenhydramine HCl 25 mg capsule 25 mg PO QID PRN itching 5 days 05/27/23 (Benadryl) #14 caps potassium chloride 20 mEq 20 meq PO BID #90 tabs 05/27/23 tablet,extended release torsemide 20 mg tablet 20 mg PO BID 30 days #60 tabs 05/27/23 Results & Data (ED) Vital Signs Vital Signs - 24 hr 05/29/23 19:13 05/29/23 19:13 05/29/23 19:13 Temperature 37 C 37 C Temperature Source Oral Oral Pulse Rate 64 Pulse Rate from SpO2 Sensor Respiratory Rate 15 Blood Pressure 114/64 Blood Pressure Mean 80 Pulse Oximetry 95 95 Oxygen Delivery Method Room Air Sepsis Recent Fever Within 48 Hours No Sepsis New/Unexplained Change in Mental Status N/A Sepsis Action Taken by Nursing No Action Required 05/29/23 19:13 05/29/23 19:07 05/29/23 19:07 Temperature Temperature Source Pulse Rate 63 64 Pulse Rate from SpO2 Sensor Respiratory Rate 12 Blood Pressure 114/64 Blood Pressure Mean 97 Pulse Oximetry Oxygen Delivery Method Sepsis Recent Fever Within 48 Hours Sepsis New/Unexplained Change in Mental Status Sepsis Action Taken by Nursing 05/29/23 19:10 05/29/23 19:20 05/29/23 19:30 Temperature Temperature Source Pulse Rate 64 77 Pulse Rate from SpO2 Sensor 64 64 Respiratory Rate 17 20 Blood Pressure 128/73 Blood Pressure Mean 84 Pulse Oximetry 95 96 Oxygen Delivery Method Sepsis Recent Fever Within 48 Hours Sepsis New/Unexplained Change in Mental Status Sepsis Action Taken by Nursing 05/29/23 19:30 05/29/23 19:40 05/29/23 19:50 Temperature Temperature Source Pulse Rate 65 62 61 Pulse Rate from SpO2 Sensor 66 63 61 Respiratory Rate 23 12 15 Blood Pressure Blood Pressure Mean Pulse Oximetry 97 97 90 Oxygen Delivery Method Sepsis Recent Fever Within 48 Hours Sepsis New/Unexplained Change in Mental Status Sepsis Action Taken by Nursing 05/29/23 20:00 05/29/23 20:00 05/29/23 20:10 Temperature Temperature Source Pulse Rate 59 L 61 Pulse Rate from SpO2 Sensor 59 L 63 Respiratory Rate 12 12 Blood Pressure 99/54 L Blood Pressure Mean 60 Pulse Oximetry 100 100 Oxygen Delivery Method Sepsis Recent Fever Within 48 Hours Sepsis New/Unexplained Change in Mental Status Sepsis Action Taken by Nursing 05/29/23 20:20 05/29/23 20:43 05/29/23 20:43 Temperature Temperature Source Pulse Rate 68 61 Pulse Rate from SpO2 Sensor 63 Respiratory Rate 15 15 Blood Pressure 107/66 Blood Pressure Mean 84 Pulse Oximetry 100 91 Oxygen Delivery Method Sepsis Recent Fever Within 48 Hours Sepsis New/Unexplained Change in Mental Status Sepsis Action Taken by Nursing 05/29/23 20:50 05/29/23 21:00 05/29/23 21:00 Temperature Temperature Source Pulse Rate 62 62 Pulse Rate from SpO2 Sensor 62 62 Respiratory Rate 15 13 Blood Pressure 99/48 L Blood Pressure Mean 57 Pulse Oximetry 96 100 Oxygen Delivery Method Sepsis Recent Fever Within 48 Hours Sepsis New/Unexplained Change in Mental Status Sepsis Action Taken by Nursing 05/29/23 21:10 05/29/23 21:16 05/29/23 21:16 Temperature Temperature Source Pulse Rate 69 68 Pulse Rate from SpO2 Sensor 61 62 Respiratory Rate 13 17 Blood Pressure 103/56 L Blood Pressure Mean 60 Pulse Oximetry 99 100 Oxygen Delivery Method Sepsis Recent Fever Within 48 Hours Sepsis New/Unexplained Change in Mental Status Sepsis Action Taken by Nursing 05/29/23 21:20 05/29/23 21:30 05/29/23 21:31 Temperature Temperature Source Pulse Rate 60 60 60 Pulse Rate from SpO2 Sensor 61 60 59 L Respiratory Rate 12 15 13 Blood Pressure Blood Pressure Mean Pulse Oximetry 100 99 98 Oxygen Delivery Method Sepsis Recent Fever Within 48 Hours Sepsis New/Unexplained Change in Mental Status Sepsis Action Taken by Nursing 05/29/23 21:31 05/29/23 21:40 05/29/23 21:50 Temperature Temperature Source Pulse Rate 58 L 60 Pulse Rate from SpO2 Sensor 58 L 59 L Respiratory Rate 15 15 Blood Pressure 105/58 L Blood Pressure Mean 61 Pulse Oximetry 99 96 Oxygen Delivery Method Sepsis Recent Fever Within 48 Hours Sepsis New/Unexplained Change in Mental Status Sepsis Action Taken by Nursing 05/29/23 21:53 05/29/23 21:54 05/29/23 21:54 Temperature Temperature Source Pulse Rate 60 61 Pulse Rate from SpO2 Sensor 61 61 Respiratory Rate 15 19 Blood Pressure 99/58 L Blood Pressure Mean 71 Pulse Oximetry 95 95 Oxygen Delivery Method Sepsis Recent Fever Within 48 Hours Sepsis New/Unexplained Change in Mental Status Sepsis Action Taken by Nursing 05/29/23 23:00 05/29/23 23:30 Temperature Temperature Source Pulse Rate 56 L 57 L Pulse Rate from SpO2 Sensor 56 L 57 L Respiratory Rate 12 14 Blood Pressure 104/51 L 102/63 Blood Pressure Mean 68 76 Pulse Oximetry 92 90 Oxygen Delivery Method Sepsis Recent Fever Within 48 Hours Sepsis New/Unexplained Change in Mental Status Sepsis Action Taken by Nursing Laboratory Data 05/29/23 19:50 05/29/23 19:50 Lab Results 05/29/23 05/29/23 05/29/23 Range/Units 19:50 19:50 21:55 WBC 6.66 (4.8-10.8) K/ul RBC 3.84 L (4.20-5.40) M/uL Hgb 11.1 L (12.0-16.0) g/dl Hct 33.4 L (37.0-47.0) % MCV 87.0 (80.0-100.0) fL MCH 28.9 (25.0-34.0) pg MCHC 33.2 (32.0-36.0) g/dL RDW Std Deviation 52.4 H (36.4-46.3) fL RDW Coeff of David 16.7 H (11.5-14.5) % Plt Count 162 (130-400) K/uL MPV 10.0 (9.4-12.4) fL Immature Gran % (Auto) 1.4 % Neut % (Auto) 63.7 % Lymph % (Auto) 17.3 % Bethel % (Auto) 11.1 % Eos % (Auto) 5.9 % Baso % (Auto) 0.6 % Neut # (Auto) 4.25 (1.40-6.50) K/uL Lymph # (Auto) 1.15 L (1.20-3.40) K/uL Bethel # (Auto) 0.74 H (0.11-0.59) K/uL Eos # (Auto) 0.39 (0.00-0.50) K/uL Baso # (Auto) 0.04 (0.00-0.20) K/uL Immature Gran # (Auto) 0.09 (0.01-0.20) K/uL Sodium 135 L (136-145) mmol/L Potassium 3.3 L (3.5-5.1) mmol/L Chloride 99 (98-107) mmol/L Carbon Dioxide 26 (21-32) mmol/L Anion Gap 10 (3-11) BUN 56 H (6-23) mg/dl Creatinine 1.30 H (0.6-1.2) mg/dl Est Cr Clr Drug Dosing Not Reportable Est GFR ( Amer) 48.1 ml/min Est GFR (Non-Af Amer) 41.5 ml/min BUN/Creatinine Ratio 43.1 H (10-20) Glucose 112 H (70-99(Fasting)) mg/dl Lactate (0.4-2.0) mmol/L Calcium 8.5 L (8.6-10.3) mg/dl Magnesium (1.7-2.4) mg/dl Total Bilirubin 0.6 (0.2-1.0) mg/dl AST 43 H (13-39) U/L ALT 34 (7-52) U/L Alkaline Phosphatase 73 (34-104) U/L Troponin I High Sens 13.4 (0-14) pg/ml Total Protein 6.3 (6.0-8.3) gm/dl Albumin 3.7 (3.4-5.0) gm/dl Globulin 2.6 (2.5-4.0) gm/dl Albumin/Globulin Ratio 1.4 (0.9-2) Lipase 11 (11-82) U/L Urine Color Yellow Urine Appearance Clear (Clear) Urine pH 6.0 (4.5-7.5) Ur Specific [place] 1.006 (1.000-1.030) Urine Protein Negative (Negative) Urine Glucose (UA) Negative (Negative) Urine Ketones Negative (Negative) Urine Blood Negative (Negative) Urine Nitrite Negative (Negative) Urine Bilirubin Negative (Negative) Urine Urobilinogen Negative (Negative) Ur Leukocyte Esterase Trace H (Negative) Urine WBC (Auto) 1-5 (0-5) /hpf Urine RBC (Auto) 0-4 (0-4) /hpf U Hyaline Cast (Auto) 0 (0-5) /lpf U Epithel Cells (Auto) 0-5 (0-5) /lpf Urine Bacteria (Auto) Negative (Negative) 05/29/23 05/29/23 Range/Units 21:59 23:39 WBC (4.8-10.8) K/ul RBC (4.20-5.40) M/uL Hgb (12.0-16.0) g/dl Hct (37.0-47.0) % MCV (80.0-100.0) fL MCH (25.0-34.0) pg MCHC (32.0-36.0) g/dL RDW Std Deviation (36.4-46.3) fL RDW Coeff of David (11.5-14.5) % Plt Count (130-400) K/uL MPV (9.4-12.4) fL Immature Gran % (Auto) % Neut % (Auto) % Lymph % (Auto) % Bethel % (Auto) % Eos % (Auto) % Baso % (Auto) % Neut # (Auto) (1.40-6.50) K/uL Lymph # (Auto) (1.20-3.40) K/uL Bethel # (Auto) (0.11-0.59) K/uL Eos # (Auto) (0.00-0.50) K/uL Baso # (Auto) (0.00-0.20) K/uL Immature Gran # (Auto) (0.01-0.20) K/uL Sodium (136-145) mmol/L Potassium (3.5-5.1) mmol/L Chloride (98-107) mmol/L Carbon Dioxide (21-32) mmol/L Anion Gap (3-11) BUN (6-23) mg/dl Creatinine (0.6-1.2) mg/dl Est Cr Clr Drug Dosing Est GFR ( Amer) ml/min Est GFR (Non-Af Amer) ml/min BUN/Creatinine Ratio (10-20) Glucose (70-99(Fasting)) mg/dl Lactate 0.4 (0.4-2.0) mmol/L Calcium (8.6-10.3) mg/dl Magnesium 2.3 (1.7-2.4) mg/dl Total Bilirubin (0.2-1.0) mg/dl AST (13-39) U/L ALT (7-52) U/L Alkaline Phosphatase (34-104) U/L Troponin I High Sens (0-14) pg/ml Total Protein (6.0-8.3) gm/dl Albumin (3.4-5.0) gm/dl Globulin (2.5-4.0) gm/dl Albumin/Globulin Ratio (0.9-2) Lipase (11-82) U/L Urine Color Urine Appearance (Clear) Urine pH (4.5-7.5) Ur Specific [place] (1.000-1.030) Urine Protein (Negative) Urine Glucose (UA) (Negative) Urine Ketones (Negative) Urine Blood (Negative) Urine Nitrite (Negative) Urine Bilirubin (Negative) Urine Urobilinogen (Negative) Ur Leukocyte Esterase (Negative) Urine WBC (Auto) (0-5) /hpf Urine RBC (Auto) (0-4) /hpf U Hyaline Cast (Auto) (0-5) /lpf U Epithel Cells (Auto) (0-5) /lpf Urine Bacteria (Auto) (Negative) Administered Medications Albumin Human (Albumin 25%) 25 gm in 100 mls @ 50 mls/hr IV ONE STA Stop: 05/30/23 01:09 Last Admin: 05/30/23 00:04 Dose: 50 mls/hr Documented By: BS Discontinued Medications Hydromorphone HCl (Hydromorphone Inj 0.5 Mg/0.5 Ml Syr) 0.5 mg IV NOW STA Stop: 05/29/23 19:12 Last Admin: 05/29/23 19:45 Dose: 0.5 mg Documented By: PHILLIP Midodrine (Midodrine Hcl 2.5 Mg Tab) 2.5 mg PO NOW STA Stop: 05/29/23 23:09 Last Admin: 05/30/23 00:04 Dose: 2.5 mg Documented By: BS Ondansetron HCl (Ondansetron Inj 2 Mg/Ml 2 Ml Vial) 4 mg IV NOW STA Stop: 05/29/23 19:12 Last Admin: 05/29/23 19:45 Dose: 4 mg Documented By: COLEN Potassium Chloride (Potassium Chloride Crtab 20 Meq Tabcr) 40 meq PO NOW STA Stop: 05/29/23 22:00 Last Admin: 05/30/23 00:15 Dose: Not Given Documented By: BS Imaging Data Radiologist's Impression: Cervical Spine CT 05/29/23 19:11 Exam(s): CT C SPINE EXAM: CT Cervical Spine Without Intravenous Contrast CLINICAL HISTORY: Reason for exam: fall. TECHNIQUE: Axial computed tomography images of the cervical spine without intravenous contrast. CTDI is 19.49 mGy and DLP is 329.2 mGy-cm. Automated exposure control was utilized for the study. A dose lowering technique was utilized adhering to the principles of ALARA. COMPARISON: No relevant prior studies available. FINDINGS: The vertebral body heights are maintained. The craniocervical junction is intact. The atlanto-dens interval is maintained. The dens is intact. There is no spondylolisthesis. Multilevel cervical spondylosis and degenerative disc disease. Straightening of the cervical lordosis. The unenhanced neck soft tissues are grossly unremarkable. The visualized lung apices are grossly clear. IMPRESSION: No acute fracture or subluxation of the cervical spine. Electronically signed by: Andrea Mitchell MD 05/29/23 20:[address] 05/29/23 19:11 Exam(s): CT HEAD Without Contrast EXAM: CT Head Without Intravenous Contrast CLINICAL HISTORY: Reason for exam: fall. TECHNIQUE: Axial computed tomography images of the head/brain without intravenous contrast. CTDI is 38.6 mGy and DLP is 546.36 mGy-cm. Automated exposure control was utilized for the study. A dose lowering technique was utilized adhering to the principles of ALARA. COMPARISON: No relevant prior studies available. FINDINGS: No acute intracranial hemorrhage. No midline shift or mass effect. The territorial alberts-white matter differentiation is maintained throughout. Age-related cerebral volume loss. Periventricular and subcortical white matter hypoattenuation, consistent with chronic microangiopathy. The visualized orbits appear grossly unremarkable. The calvarium is intact. Paranasal sinus mucosal thickening. IMPRESSION: No acute intracranial hemorrhage, midline shift, or mass effect. Electronically signed by: Andrea Mitchell MD 05/29/23 20:[address] 05/29/23 19:11 Exam(s): CT T SPINE EXAM: CT Thoracic Spine Without Intravenous Contrast CLINICAL HISTORY: Reason for exam: fall mid t spine pain. TECHNIQUE: Axial computed tomography images of the thoracic spine without intravenous contrast. CTDI is 35.87 mGy and DLP is 1155.56 mGy-cm. Automated exposure control was utilized for the study. A dose lowering technique was utilized adhering to the principles of ALARA. COMPARISON: No relevant prior studies available. FINDINGS: The vertebral body heights are maintained. The thoracic kyphosis is preserved. There is no spondylolisthesis. Hemangioma in the T4 vertebral body. The posterior elements are maintained, without evidence of acute fracture. The pedicles are intact. Multilevel thoracic spondylosis and degenerative disc disease. IMPRESSION: No acute fracture or subluxation of the thoracic spine. Electronically signed by: Andrea Mitchell MD 05/29/23 20:57 PM Discharge Plan Visit Data Chief Complaint: Fall ED Provider: Pavel Alarcon Discharge Problem: Fall, Back pain, Hypokalemia Forms Stand Alone Forms: [facility] [place] [employer] Prescriptions Prescriptions: No Action colesevelam [WelChol] 625 mg tablet 625 mg PO TID Patient Comments: before meals , morning , noon and night montelukast [Singulair] 10 mg tablet 10 mg PO HS Prilosec OTC 20 mg tablet,delayed release (DR/EC) 20 mg PO BID desipramine 50 mg tablet 50 mg PO TID calcitriol 0.5 mcg capsule 0.5 mcg PO BID Qty: 60 5RF pregabalin 100 mg capsule 100 mg PO TID 30 Days Qty: 90 2RF levothyroxine 88 mcg tablet 88 mcg PO QAM Qty: 30 3RF albuterol sulfate 90 mcg/actuation aerosol powdr breath activated 2 inh INH Q6H PRN (Reason: Shortness Of Breath Or Wheezing) Qty: 1 3RF Cerovite Senior 0.4 mg-300 mcg- 250 mcg tablet 1 tab PO DAILY ipratropium-albuterol 0.5 mg-3 mg(2.5 mg base)/3 mL Solution For Nebulization 3 ml INHALATION Q4H PRN (Reason: Shortness Of Breath Or Wheezing) Creon 24,000-76,000 -120,000 unit Capsule,Delayed Release(Dr/Ec) 4 cap PO TID Patient Comments: before meals valacyclovir 500 mg tablet 500 mg PO QAM ropinirole 0.5 mg tablet 0.5 mg PO HS escitalopram oxalate 20 mg tablet 20 mg PO QAM rosuvastatin 10 mg tablet 10 mg PO QAM metolazone 2.5 mg Tablet 2.5 mg PO WK Rx Instructions: THURSDAYS, FOLLOWED IN 20 MINUTES BY DAILY TORSEMIDE. oxycodone-acetaminophen [Percocet] 5-325 mg Tablet 1 tab PO Q6H PRN (Reason: Pain) cholecalciferol (vitamin D3) [Vitamin D3] 25 mcg (1,000 unit) Capsule 50 mcg PO QAM duloxetine 30 mg capsule,delayed release(DR/EC) 30 mg PO HS Gemtesa 75 mg tablet 75 mg PO QAM cetirizine 10 mg tablet 10 mg PO DAILY PRN (Reason: Other) fluticasone propionate 50 mcg/actuation spray,suspension 1 spray INTRANASAL DAILY PRN (Reason: Congestion) cyanocobalamin (vitamin B-12) [Vitamin B-12] 1,000 mcg Tablet 1,000 mcg PO DAILY lamotrigine [Lamictal] 25 mg Tablet 25 mg PO BID nitroglycerin [Nitrostat] 0.4 mg Tablet, Sublingual 0.4 mg sublingual DIRECTED PRN (Reason: Chest Pain) epinephrine [EpiPen] 0.3 mg/0.3 mL Auto-Injector 0.3 mg IM DIRECTED PRN (Reason: Allergic Reaction) Probiotic 5 billion cell Capsule, Sprinkle 2 cap PO QPM Trelegy Ellipta 100-62.5-25 mcg Blister With Device 1 inh INHALATION DAILY calcium carbonate [Calcium 600] 600 mg calcium (1,500 mg) tablet 1,200 mg PO TID desipramine 50 mg tablet 100 mg PO HS cetirizine 10 mg Tablet 10 mg PO QAM 5 Days Qty: 5 0RF diphenhydramine HCl [Benadryl] 25 mg Capsule 25 mg PO QID PRN (Reason: itching) 5 Days Qty: 14 0RF torsemide 20 mg tablet 20 mg PO BID 30 Days Qty: 60 0RF potassium chloride 20 mEq tablet extended release 20 meq PO BID Qty: 90 3RF risperidone 2 mg Tablet 2 mg PO HS lorazepam 0.5 mg tablet 0.5 mg PO BID PRN (Reason: Anxiety) Rx Instructions: LAST FILLED 11/20/22 FOR 40 TABS. PER EXT MED HX cetirizine 10 mg tablet 10 mg PO DAILY Referrals Referrals: Frederick Reynaga DO [Primary Care Provider] -
[2023-05-29 20:21] LABS: Basophils # (auto) 0.04 K/uL (0.00-0.20); Basophils % (auto) 0.6 %; Eosinophils # (auto) 0.39 K/uL (0.00-0.50); Eosinophils % (auto) 5.9 %; Hematocrit (blood only) 33.4 % (37.0-47.0); Hemoglobin 11.1 g/dl (12.0-16.0); Immature Granulocytes # (auto) 0.09 K/uL (0.01-0.20); Immature Granulocytes % (auto) 1.4 %; Lymphocytes # (auto) 1.15 K/uL (1.20-3.40); Lymphocytes % (auto) 17.3 %; Mean Corpuscular Hemoglobin 28.9 pg (25.0-34.0); Mean Corpuscular Hgb Conc 33.2 g/dL (32.0-36.0); Monocytes # (auto) 0.74 K/uL (0.11-0.59); Monocytes % (auto) 11.1 %; Neutrophils # (auto) 4.25 K/uL (1.40-6.50); Neutrophils % (auto) 63.7 %; Platelet Count 162 K/uL (130-400); RDW Coefficient of Variation 16.7 % (11.5-14.5); RDW Standard Deviation 52.4 fL (36.4-46.3); Red Blood Count 3.84 M/uL (4.20-5.40); White Blood Count 6.66 K/ul (4.8-10.8)
--- NOTE | 2023-05-29 20:56 | CT Scan Report ---
Exam(s): CT HEAD Without Contrast EXAM: CT Head Without Intravenous Contrast CLINICAL HISTORY: Reason for exam: fall. TECHNIQUE: Axial computed tomography images of the head/brain without intravenous contrast. CTDI is 38.6 mGy and DLP is 546.36 mGy-cm. Automated exposure control was utilized for the study. A dose lowering technique was utilized adhering to the principles of ALARA. COMPARISON: No relevant prior studies available. FINDINGS: No acute intracranial hemorrhage. No midline shift or mass effect. The territorial alberts-white matter differentiation is maintained throughout. Age-related cerebral volume loss. Periventricular and subcortical white matter hypoattenuation, consistent with chronic microangiopathy. The visualized orbits appear grossly unremarkable. The calvarium is intact. Paranasal sinus mucosal thickening. IMPRESSION: No acute intracranial hemorrhage, midline shift, or mass effect. Electronically signed by: Andrea Mitchell MD 05/29/23 20:55 PM
--- NOTE | 2023-05-29 20:57 | CT Scan Report ---
Exam(s): CT C SPINE EXAM: CT Cervical Spine Without Intravenous Contrast CLINICAL HISTORY: Reason for exam: fall. TECHNIQUE: Axial computed tomography images of the cervical spine without intravenous contrast. CTDI is 19.49 mGy and DLP is 329.2 mGy-cm. Automated exposure control was utilized for the study. A dose lowering technique was utilized adhering to the principles of ALARA. COMPARISON: No relevant prior studies available. FINDINGS: The vertebral body heights are maintained. The craniocervical junction is intact. The atlanto-dens interval is maintained. The dens is intact. There is no spondylolisthesis. Multilevel cervical spondylosis and degenerative disc disease. Straightening of the cervical lordosis. The unenhanced neck soft tissues are grossly unremarkable. The visualized lung apices are grossly clear. IMPRESSION: No acute fracture or subluxation of the cervical spine. Electronically signed by: Andrea Mitchell MD 05/29/23 20:56 PM
--- NOTE | 2023-05-29 20:58 | CT Scan Report ---
Exam(s): CT T SPINE EXAM: CT Thoracic Spine Without Intravenous Contrast CLINICAL HISTORY: Reason for exam: fall mid t spine pain. TECHNIQUE: Axial computed tomography images of the thoracic spine without intravenous contrast. CTDI is 35.87 mGy and DLP is 1155.56 mGy-cm. Automated exposure control was utilized for the study. A dose lowering technique was utilized adhering to the principles of ALARA. COMPARISON: No relevant prior studies available. FINDINGS: The vertebral body heights are maintained. The thoracic kyphosis is preserved. There is no spondylolisthesis. Hemangioma in the T4 vertebral body. The posterior elements are maintained, without evidence of acute fracture. The pedicles are intact. Multilevel thoracic spondylosis and degenerative disc disease. IMPRESSION: No acute fracture or subluxation of the thoracic spine. Electronically signed by: Andrea Mitchell MD 05/29/23 20:57 PM
[2023-05-29 21:07] LABS: Alanine Aminotransferase 34 U/L (7-52); Albumin Globulin Ratio 1.4 (0.9-2); Albumin Level 3.7 gm/dl (3.4-5.0); Alkaline Phosphatase 73 U/L (34-104); Anion Gap 10 (3-11); Aspartate Aminotransferase 43 U/L (13-39); BUN Creatinine Ratio 43.1 (10-20); Bilirubin,Total 0.6 mg/dl (0.2-1.0); Blood Urea Nitrogen 56 mg/dl (6-23); Calcium 8.5 mg/dl (8.6-10.3); Carbon Dioxide 26 mmol/L (21-32); Chloride 99 mmol/L (98-107); Est GFR (African American) 48.1 ml/min; Est GFR (Non-African American) 41.5 ml/min; Globulin 2.6 gm/dl (2.5-4.0); Glucose 112 mg/dl (70-99(Fasting)); Lipase 11 U/L (11-82); Potassium 3.3 mmol/L (3.5-5.1); Sodium 135 mmol/L (136-145); Total Protein 6.3 gm/dl (6.0-8.3); Troponin I High Sensitivity 13.4 pg/ml (0-14)
[2023-05-29] MEDS ORDERED: POTASSIUM CHLORIDE CRTAB 20 MEQ TABCR PO STA (21:59)
[2023-05-29 22:21] LABS: Appearance Urine Clear (Clear); Bacteria Urine Automated Negative (Negative); Bilirubin Urine Negative (Negative); Blood Urine Negative (Negative); Cast Urine Automated 0 /lpf (0-5); Color Urine Yellow; Epithelial Cell Urine Auto 0-5 /lpf (0-5); Glucose Urine UA Negative (Negative); Ketones Urine Negative (Negative); Leukocyte Esterase Urine Trace (Negative); Nitrite Urine Negative (Negative); Protein Urine Negative (Negative); RBC Urine Automated 0-4 /hpf (0-4); Specific Gravity Urine 1.006 (1.000-1.030); Urobilinogen Urine Negative (Negative)
[2023-05-29] MEDS ORDERED: MIDODRINE HCL 2.5 MG TAB PO STA (23:08)
[2023-05-29] MEDS ORDERED: ALBUMIN 25% 25 GM/100 ML VIAL IV STA (23:10)
--- NOTE | 2023-05-29 23:15 | History & Physical Report ---
Date of Service May 29, 2023 Assessment & Plan (1) Hypotension: Plan: Orthostasis symptoms resulting in fall SBP noted to be low since recent confinement. Rule out pacemaker dysfunction, hx sinus node dysfunction sp PPM Multiple home neuropsychotropic medications contributory to fall predisposition. chronic diastolic heart failure (EF 55 to 60%, TTE 2022), equivocal volume status Patient with signs of fluid retention secondary to right-sided heart failure, hx pulm hypertension/ILD/LARRY BiPAP noncompliance as per records and kidney dysfunction. hx gastric bypass chronic anemia, hemoglobin at baseline hx recurrent UTIs (ESBL E. coli infection) mood/anxiety disorder, at baseline chronic pain/neuropathy Hypothyroidism, euthyroid as of today's TSH hypokalemia secondary to diuretic Rx Hyperglycemia rule out DM, history of pancreatic insufficiency/malabsorption as per records Possible functional disability given recurrent admissions/compliance issues PCU Initiate Midodrine Pacemaker interrogation May need Cardiology input pending results ([facility] Monitor creatinine response to IV albumin Hold home diuretic for now until kidney function back to baseline Fluid restriction Patient counseled regarding need to comply with BiPAP given pulmonary hypertension/right-sided heart failure. Hold parameters for neuropsychotropic meds for sedation/confusion. Replace electrolytes Check hemoglobin A1c PT OT eval DVT prophylaxis. Lovenox subcu Full code Text document was generated using [employer] voice recognition software. It may contain grammatical or spelling errors. Kindly contact undersigned for clarification of any documentation item in question. History of Present Illness Chief Complaint: Recurrent falls Primary Care Provider: Frederick Reynaga DO History obtained from patient and records. Limited history from patient secondary to lethargic state. Medical history significant for chronic diastolic heart failure (EF 55 to 60%, TTE 2022), sinus node dysfunction sp PPM, asthma/ILD, LARRY (BiPAP noncompliance), pulmonary hypertension, history of gastric bypass, hyperparathyroidism as per records, hypothyroidism, ankylosing spondylitis as per records, chronic anemia (baseline hemoglobin of 11), recurrent UTIs (ESBL E. coli infection), u rolithiasis, history pancreatic insufficiency/malabsorption as per records, mood/anxiety disorder, chronic pain/neuropathy. Two [facility] admissions this month. 05/20-05/22 for frequent falls and UTI. 05/24- 05/26 for hyperkalemia, ARF. Kidney function normal on discharge. Patient told to decrease home diuretic dose on discharge. Increased fluid retention, leg swelling at home as per patient without chest pain, SOB. PCP recommended some diuretic changes today. Patient lightheadedness, feeling funny on getting up. Subsequent fall without headache, head trauma, LOC. No chest pain, no SOB. Achy mid back pain post fall. Patient brought to the ER for evaluation. SBP 90s upon EMS arrival at patient's home. IV Dilaudid administered at the ER. 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 Allergies Allergy/AdvReac Type Severity Reaction Status Date / Time bethanechol Allergy Intermediate RASH, Verified 05/24/23 15:32 "FEELS FUNNY" Cephalosporins Allergy Intermediate RASH, Verified 05/24/23 15:32 DIARRHEA levofloxacin Allergy Intermediate RASH,TURNED Verified 05/24/23 15:32 RED Sulfa (Sulfonamide Allergy Intermediate Generalized Verified 05/24/23 15:32 Antibiotics) Rash ertapenem Allergy Mild RASH Verified 05/24/23 15:32 atropine Allergy Unknown ON [facility] MED Verified 05/24/23 15:32 LIST clindamycin Allergy Unknown Unknown Verified 05/24/23 15:32 dipyridamole Allergy Unknown PERSANTINE--ON Verified 05/24/23 15:32 [facility] MED LIST droperidol Allergy Unknown Unknown Verified 05/24/23 15:32 meperidine [From Demerol] Allergy Unknown ? ALLERGY Verified 05/24/23 15:32 ON [facility] MED LIST promethazine Allergy Unknown UNKNOWN Verified 05/24/23 15:32 tobramycin Allergy Unknown UNKNOWN Verified 05/24/23 15:32 aspirin AdvReac Severe BLEEDING Verified 05/24/23 15:32 doxycycline AdvReac Severe severe Verified 05/24/23 15:32 Diarrhea, nausea metolazone AdvReac Severe ELECTROLYTE Verified 05/24/23 15:32 ISSUES--HYPOKALEMIA bupropion AdvReac Intermediate NERVOUS Verified 05/24/23 15:32 REACTION cephalexin AdvReac Intermediate GI SYMPTOMS Verified 05/24/23 15:32 morphine AdvReac Intermediate NERVOUS Verified 05/24/23 15:32 REACTION TO IT nitrofurantoin AdvReac Intermediate Vomiting Verified 05/24/23 15:32 [From Macrobid] prochlorperazine AdvReac Intermediate NERVOUS Verified 05/24/23 15:32 REACTION tedizolid AdvReac Intermediate GI SYMPTOMS Verified 05/24/23 15:32 venlafaxine [From Effexor] AdvReac Intermediate NERVOUS Verified 05/24/23 15:32 REACTION lamotrigine AdvReac Unknown tremors Verified 05/24/23 15:32 Home Medications Medication Instructions Recorded Confirmed Type colesevelam 625 mg tablet (WelChol) 625 mg PO TID 06/17/18 05/30/23 History montelukast 10 mg tablet 10 mg PO HS 06/17/18 05/30/23 History (Singulair) ipratropium 0.5 mg-albuterol 3 mg 3 ml inhalation Q4H PRN Shortness 05/05/19 05/30/23 History (2.5 mg base)/3 mL nebulization Of Breath Or Wheezing soln xsxeew-mbmlyusz-tjlyknw 4 cap PO TID 05/05/19 05/30/23 History 24,000-76,000-120,000 unit capsule,delayed rel (Creon) omeprazole magnesium 20 mg 20 mg PO BID 05/17/19 05/30/23 History tablet,delayed release (Prilosec OTC) risperidone 2 mg tablet 2 mg PO HS 02/27/21 05/30/23 History desipramine 50 mg tablet 50 mg PO TID 01/23/22 05/30/23 History lorazepam 0.5 mg tablet 0.5 mg PO BID PRN Anxiety 11/06/22 05/24/23 History cholecalciferol (vitamin D3) 25 50 mcg PO QAM 11/15/22 05/30/23 History mcg (1,000 unit) capsule (Vitamin D3) escitalopram oxalate 20 mg tablet 20 mg PO QAM 11/15/22 05/30/23 History metolazone 2.5 mg tablet 2.5 mg PO WK 11/15/22 05/30/23 History oxycodone-acetaminophen 5 mg-325 1 tab PO Q6H PRN Pain 11/15/22 05/30/23 History mg tablet (Percocet) ropinirole 0.5 mg tablet 0.5 mg PO HS 11/15/22 05/30/23 History valacyclovir 500 mg tablet 500 mg PO QAM 11/15/22 05/30/23 History calcitriol 0.5 mcg capsule 0.5 mcg PO BID #60 caps 12/21/22 05/30/23 Rx yewogfeu-wcg-ueatu acid 0.4 1 tab PO DAILY 12/31/22 05/30/23 History mg-lycopene 300 mcg-lutein 250 mcg tablet (Cerovite Senior) albuterol sulfate 90 mcg/actuation 2 inh inhalation Q6H PRN Shortness 02/03/23 05/30/23 Rx breath activated powder inhaler Of Breath Or Wheezing #1 ea duloxetine 30 mg capsule,delayed 30 mg PO HS 04/17/23 05/30/23 History release vibegron 75 mg tablet (Gemtesa) 75 mg PO QAM 04/17/23 05/30/23 History pregabalin 100 mg capsule 100 mg PO TID 30 days #90 caps 04/21/23 05/30/23 Rx fluticasone propionate 50 1 spray intranasal DAILY PRN 05/20/23 05/30/23 History mcg/actuation nasal Congestion spray,suspension levothyroxine 88 mcg tablet 88 mcg PO QAM #30 tabs 05/21/23 05/30/23 Rx Lactobacil.acidophilus-Bifido.animalis 2 cap PO QPM 05/24/23 05/30/23 History 5 billion cell sprinkle capsule (Probiotic) calcium carbonate 600 mg calcium 1,200 mg PO BID 05/24/23 05/30/23 History (1,500 mg) tablet (Calcium) cyanocobalamin (vitamin B-12) 1,000 mcg PO DAILY 05/24/23 05/30/23 History 1,000 mcg tablet (Vitamin B-12) epinephrine 0.3 mg/0.3 mL 0.3 mg IM DIRECTED PRN Allergic 05/24/23 05/30/23 History injection, auto-injector (EpiPen) Reaction fluticasone fur. 100 mcg-umeclid 1 inh inhalation QAM 05/24/23 05/30/23 History 62.5 mcg-vilant 25 mcg inhalat.powder (Trelegy Ellipta) lamotrigine 25 mg tablet (Lamictal) 25 mg PO BID 05/24/23 05/30/23 History nitroglycerin 0.4 mg sublingual 0.4 mg sublingual DIRECTED PRN 05/24/23 05/30/23 History tablet (Nitrostat) Chest Pain diphenhydramine HCl 25 mg capsule 25 mg PO QID PRN itching 5 days 05/27/23 0 05/30/23 Rx (Benadryl) #14 caps cetirizine 10 mg tablet 10 mg PO DAILY 05/29/23 05/29/23 History potassium chloride 20 mEq 20 meq PO QID 05/30/23 05/30/23 History tablet,extended release Past Med/Surg History Medical History Asthma Atherosclerosis of both lower extremities Bilateral nephrolithiasis Bronchiectasis Chronic diastolic (congestive) heart failure Follows with [facility] cardiology Chronic kidney disease stage 3b Chronic sinusitis Chronic urinary tract infection Chronic venous insufficiency Complex sleep apnea syndrome COPD (chronic obstructive pulmonary disease) "Well controlled" Depression Fall GERD without esophagitis H/O concussion Remote hx "a long time ago" History of anemia History of DVT (deep vein thrombosis) Hyperlipidemia per records Hypothyroidism ILD (interstitial lung disease) Incisional hernia Abdominal (from multiple surgeries/feeding tube) Junctional bradycardia Kidney stones Lumbar stenosis Lumbar transverse process fracture Pt reports lower back detioriating - can't lie flat/sleep on a chair MRSA (methicillin resistant staph aureus) culture positive Hx (Left wrist) Had 3 nasal swab and all negative (through [facility] per pt) Nocturnal hypoxemia Obesity LARRY treated with BiPAP Osteoarthritis of left knee Osteoporosis Pacemaker [employer], implanted 12/2022 (bradycardia) Pancreatic insufficiency chronic pancreatitis Peripheral neuropathy Peripheral neuropathy Pernicious anemia (08/08/13) Port-A-Cath in place right side due to poor vascular access PUD (peptic ulcer disease) Had feeding tube for 28 years (has been removed for 11 years) Pulmonary hypertension mild per 07/[address] report Pulmonary nodule seen on imaging study PVC (premature ventricular contraction) Reactive hypoglycemia Right rotator cuff tear Secondary hyperparathyroidism Sepsis 05/2020 @ [facility], urosepsis 2/2 obstructing renal stone, S/P cysto/stent and ESWL Short bowel syndrome Sleep apnea complex sleep apnea, BIPAP (non-compliant) Urinary leakage Vitamin D deficiency Wrist injury Scar tissue surrounding remote wrist ORIF several years ago resulting in intermittent inflammation per pt Surgical History H/O shoulder surgery RT arthroscopy 05/28/2021: LMA#4 atraumatic x 1 + PNB. Anesthesia postop progress note: "Pt denies SOB at this time. Block is functioning well. Vital signs stable and appropriate. Oxygenating well considering block placement and her comorbidities. Plan to discharge home with IS." History of appendectomy History of cardiac cath 08/2019 ([facility])- essentially normal coronary arteries angiographically, no stents History of cholecystectomy History of colonoscopy History of cystoscopy multiple History of esophageal dilatation History of esophagogastroduodenoscopy (EGD) History of gastrointestinal surgery multiple History of joint replacement Rt thumb History of knee replacement procedure of right knee History of open reduction and internal fixation (ORIF) procedure left wrist + manipulation (01/2018) and I&D (10/2019) History of partial gastrectomy History of prior ablation treatment Right LE in January 2020 and left LE 04/18/20 History of sinus surgery History of tonsillectomy and adenoidectomy History of total abdominal hysterectomy and bilateral salpingo-oophorectomy S/P right rotator cuff repair S/P ureteral stent placement Status post laser lithotripsy of ureteral calculus Family History Mother Family history of diabetes mellitus Sister Family history of diabetes mellitus Family history of breast cancer Father Esophageal cancer Other Family history non-contributory No family history of adverse response to anesthesia Social History Smoking Status: Never smoker Second Hand Exposure: No; Do You Dip or Chew Tobacco: No; Tobacco Cessation Education Requested by Patient: No Hx Alcohol Use: No Hx Substance Use: No Preferred Language: Argentine Communication Ability: Effective Visual Impairment: No Limitations [employer] Required: No Beliefs That Will Affect Care: None marital status: Single Current Living Situation: Personal Care Facility Current Living Situation Comment: apartment behind senior living facility How many Children do You have: 0 Other Information That Helps Us Care for You: No Feels Safe at Home: Yes Safety Concerns: Feels Safe At This Time Assistive Devices: Walker Review of Systems Review of Systems: Could not be reliably obtained secondary to lethargy Physical Exam Physical Exam: GENERAL: Lethargic, obese, no respiratory distress SKIN: Normal color, warm HEENT: pink palpebral conjunctivae, no ptosis, dry buccal mucosa NECK : Supple, short, no tenderness CHEST : Decreased breath sounds, no tenderness BACK : Mid back tenderness HEART : Bradycardic, systolic murmur ABDOMEN: Some distention, no tenderness EXTREMITIES : Bilateral LE swelling, no LE tenderness NEUROLOGIC : Lethargic, no facial asymmetry, gait and stance not assessed Results & Data Results & Data Vital Signs (Past 12 Hours) Vital Signs Temp Pulse Resp BP Pulse Ox O2 Del Method 05/29/23 21:54 61 19 95 05/29/23 21:54 99/58 L 05/29/23 21:53 60 15 95 05/29/23 21:50 60 15 96 05/29/23 21:40 58 L 15 99 05/29/23 21:31 105/58 L 05/29/23 21:31 60 13 98 05/29/23 21:30 60 15 99 05/29/23 21:20 60 12 100 05/29/23 21:16 68 17 100 05/29/23 21:16 103/56 L 05/29/23 21:10 69 13 99 05/29/23 21:00 62 13 100 05/29/23 21:00 99/48 L 05/29/23 20:50 62 15 96 05/29/23 20:43 61 15 91 05/29/23 20:43 107/66 05/29/23 20:20 68 15 100 05/29/23 20:10 61 12 100 05/29/23 20:00 59 L 12 100 05/29/23 20:00 99/54 L 05/29/23 19:50 61 15 90 05/29/23 19:40 62 12 97 05/29/23 19:30 65 23 97 05/29/23 19:30 128/73 05/29/23 19:20 77 20 96 05/29/23 19:10 64 17 95 05/29/23 19:07 64 12 05/29/23 19:07 114/64 05/29/23 19:13 63 05/29/23 19:13 95 Room Air 05/29/23 19:13 37 C 05/29/23 19:13 37 C 64 15 114/64 95 Laboratory Results Laboratory Results WBC 6.66 K/ul (4.8-10.8) 05/29/23 19:50 RBC 3.84 M/uL (4.20-5.40) L 05/29/23 19:50 Hgb 11.1 g/dl (12.0-16.0) L 05/29/23 19:50 Hct 33.4 % (37.0-47.0) L 05/29/23 19:50 MCV 87.0 fL (80.0-100.0) 05/29/23 19:50 MCH 28.9 pg (25.0-34.0) 05/29/23 19:50 MCHC 33.2 g/dL (32.0-36.0) 05/29/23 19:50 RDW Std Deviation 52.4 fL (36.4-46.3) H 05/29/23 19:50 RDW Coeff of David 16.7 % (11.5-14.5) H 05/29/23 19:50 Plt Count 162 K/uL (130-400) 05/29/23 19:50 MPV 10.0 fL (9.4-12.4) 05/29/23 19:50 Immature Gran % (Auto) 1.4 % 05/29/23 19:50 Neut % (Auto) 63.7 % 05/29/23 19:50 Lymph % (Auto) 17.3 % 05/29/23 19:50 [place] % (Auto) 11.1 % 05/29/23 19:50 Eos % (Auto) 5.9 % 05/29/23 19:50 Baso % (Auto) 0.6 % 05/29/23 19:50 Neut # (Auto) 4.25 K/uL (1.40-6.50) 05/29/23 19:50 Lymph # (Auto) 1.15 K/uL (1.20-3.40) L 05/29/23 19:50 [place] # (Auto) 0.74 K/uL (0.11-0.59) H 05/29/23 19:50 Eos # (Auto) 0.39 K/uL (0.00-0.50) 05/29/23 19:50 Baso # (Auto) 0.04 K/uL (0.00-0.20) 05/29/23 19:50 Immature Gran # (Auto) 0.09 K/uL (0.01-0.20) 05/29/23 19:50 Sodium 135 mmol/L (136-145) L 05/29/23 19:50 Potassium 3.3 mmol/L (3.5-5.1) L 05/29/23 19:50 Chloride 99 mmol/L (98-107) 05/29/23 19:50 Carbon Dioxide 26 mmol/L (21-32) 05/29/23 19:50 Anion Gap 10 (3-11) 05/29/23 19:50 BUN 56 mg/dl (6-23) H 05/29/23 19:50 Creatinine 1.30 mg/dl (0.6-1.2) H 05/29/23 19:50 Est Cr Clr Drug Dosing Not Reportable 05/29/23 19:50 Est GFR ( Amer) 48.1 ml/min 05/29/23 19:50 Est GFR (Non-Af Amer) 41.5 ml/min 05/29/23 19:50 BUN/Creatinine Ratio 43.1 (10-20) H 05/29/23 19:50 Glucose 112 mg/dl (70-99(Fasting)) H 05/29/23 19:50 Calcium 8.5 mg/dl (8.6-10.3) L 05/29/23 19:50 Magnesium 2.3 mg/dl (1.7-2.4) 05/29/23 21:59 Total Bilirubin 0.6 mg/dl (0.2-1.0) 05/29/23 19:50 AST 43 U/L (13-39) H 05/29/23 19:50 ALT 34 U/L (7-52) 05/29/23 19:50 Alkaline Phosphatase 73 U/L (34-104) 05/29/23 19:50 Troponin I High Sens 13.4 pg/ml (0-14) 05/29/23 19:50 Total Protein 6.3 gm/dl (6.0-8.3) 05/29/23 19:50 Albumin 3.7 gm/dl (3.4-5.0) 05/29/23 19:50 Globulin 2.6 gm/dl (2.5-4.0) 05/29/23 19:50 Albumin/Globulin Ratio 1.4 (0.9-2) 05/29/23 19:50 Lipase 11 U/L (11-82) 05/29/23 19:50 Urine Color Yellow 05/29/23 21:55 Urine Appearance Clear (Clear) 05/29/23 21:55 Urine pH 6.0 (4.5-7.5) 05/29/23 21:55 Ur Specific [place] 1.006 (1.000-1.030) 05/29/23 21:55 Urine Protein Negative (Negative) 05/29/23 21:55 Urine Glucose (UA) Negative (Negative) 05/29/23 21:55 Urine Ketones Negative (Negative) 05/29/23 21:55 Urine Blood Negative (Negative) 05/29/23 21:55 Urine Nitrite Negative (Negative) 05/29/23 21:55 Urine Bilirubin Negative (Negative) 05/29/23 21:55 Urine Urobilinogen Negative (Negative) 05/29/23 21:55 Ur Leukocyte Esterase Trace (Negative) H 05/29/23 21:55 Urine WBC (Auto) 1-5 /hpf (0-5) 05/29/23 21:55 Urine RBC (Auto) 0-4 /hpf (0-4) 05/29/23 21:55 U Hyaline Cast (Auto) 0 /lpf (0-5) 05/29/23 21:55 U Epithel Cells (Auto) 0-5 /lpf (0-5) 05/29/23 21:55 Urine Bacteria (Auto) Negative (Negative) 05/29/23 21:[address] 05/29/23 19:11 Exam(s): CT C SPINE EXAM: CT Cervical Spine Without Intravenous Contrast CLINICAL HISTORY: Reason for exam: fall. TECHNIQUE: Axial computed tomography images of the cervical spine without intravenous contrast. CTDI is 19.49 mGy and DLP is 329.2 mGy-cm. Automated exposure control was utilized for the study. A dose lowering technique was utilized adhering to the principles of ALARA. COMPARISON: No relevant prior studies available. FINDINGS: The vertebral body heights are maintained. The craniocervical junction is intact. The atlanto-dens interval is maintained. The dens is intact. There is no spondylolisthesis. Multilevel cervical spondylosis and degenerative disc disease. Straightening of the cervical lordosis. The unenhanced neck soft tissues are grossly unremarkable. The visualized lung apices are grossly clear. IMPRESSION: No acute fracture or subluxation of the cervical spine. Electronically signed by: Andrea Mitchell MD 05/29/23 20:[address] 05/29/23 19:11 Exam(s): CT HEAD Without Contrast EXAM: CT Head Without Intravenous Contrast CLINICAL HISTORY: Reason for exam: fall. TECHNIQUE: Axial computed tomography images of the head/brain without intravenous contrast. CTDI is 38.6 mGy and DLP is 546.36 mGy-cm. Automated exposure control was utilized for the study. A dose lowering technique was utilized adhering to the principles of ALARA. COMPARISON: No relevant prior studies available. FINDINGS: No acute intracranial hemorrhage. No midline shift or mass effect. The territorial alberts-white matter differentiation is maintained throughout. Age-related cerebral volume loss. Periventricular and subcortical white matter hypoattenuation, consistent with chronic microangiopathy. The visualized orbits appear grossly unremarkable. The calvarium is intact. Paranasal sinus mucosal thickening. IMPRESSION: No acute intracranial hemorrhage, midline shift, or mass effect. Electronically signed by: Andrea Mitchell MD 05/29/23 20:[address] 05/29/23 19:11 Exam(s): CT T SPINE EXAM: CT Thoracic Spine Without Intravenous Contrast CLINICAL HISTORY: Reason for exam: fall mid t spine pain. TECHNIQUE: Axial computed tomography images of the thoracic spine without intravenous contrast. CTDI is 35.87 mGy and DLP is 1155.56 mGy-cm. Automated exposure control was utilized for the study. A dose lowering technique was utilized adhering to the principles of ALARA. COMPARISON: No relevant prior studies available. FINDINGS: The vertebral body heights are maintained. The thoracic kyphosis is preserved. There is no spondylolisthesis. Hemangioma in the T4 vertebral body. The posterior elements are maintained, without evidence of acute fracture. The pedicles are intact. Multilevel thoracic spondylosis and degenerative disc disease. IMPRESSION: No acute fracture or subluxation of the thoracic spine. Electronically signed by: Andrea Mitchell MD 05/29/23 20:57 PM Diagnostic Findings EKG as per my interpretation :Rate 65, NSR, LAD, LAFB, LVH, T wave abnormalities septal leads
[2023-05-29] MEDS ORDERED: oxyCODONE HCL IR 5 MG TAB (IMMEDIATE RELEASE) PO PRN (23:38)
[2023-05-29] MEDS ORDERED: ONDANSETRON INJ 2 MG/ML 2 ML VIAL IV PRN (23:39)
[2023-05-30 06:26] LABS: Basophils # (auto) 0.03 K/uL (0.00-0.20); Basophils % (auto) 0.6 %; Eosinophils # (auto) 0.32 K/uL (0.00-0.50); Eosinophils % (auto) 6.4 %; Hematocrit (blood only) 31.8 % (37.0-47.0); Hemoglobin 10.5 g/dl (12.0-16.0); Immature Granulocytes # (auto) 0.03 K/uL (0.01-0.20); Immature Granulocytes % (auto) 0.6 %; Lymphocytes # (auto) 0.95 K/uL (1.20-3.40); Lymphocytes % (auto) 19.1 %; Mean Corpuscular Hemoglobin 28.5 pg (25.0-34.0); Mean Corpuscular Volume 86.2 fL (80.0-100.0); Monocytes # (auto) 0.55 K/uL (0.11-0.59); Monocytes % (auto) 11.1 %; Neutrophils # (auto) 3.09 K/uL (1.40-6.50); Neutrophils % (auto) 62.2 %; Platelet Count 169 K/uL (130-400); RDW Coefficient of Variation 16.6 % (11.5-14.5); RDW Standard Deviation 51.7 fL (36.4-46.3); Red Blood Count 3.69 M/uL (4.20-5.40); White Blood Count 4.97 K/ul (4.8-10.8)
[2023-05-30 07:00] LABS: BUN Creatinine Ratio 44.2 (10-20); Calcium 8.6 mg/dl (8.6-10.3); Creatinine Clr Calc Pharmacy 44.5 ml/min; Est GFR (Non-African American) 49.2 ml/min
--- NOTE | 2023-05-30 07:10 | Electrocardiogram Report ---
Test Reason : Blood Pressure : / mmHG Vent. Rate : 064 BPM Atrial Rate : 064 BPM P-R Int : 238 ms QRS Dur : 122 ms QT Int : 460 ms P-R-T Axes : 054 -28 049 degrees QTc Int : 474 ms Sinus rhythm with 1st degree A-V block Left ventricular hypertrophy with QRS widening Nonspecific T wave abnormality Abnormal ECG When compared with ECG of 24-MAY-2023 18:33, AL interval has increased Confirmed by Rohith Patel ([id number]) on 05/30/2023 7:10:35 AM Referred By: REFERRED SELF Confirmed By:Irving Patel
[2023-05-30] MEDS ORDERED: LORazepam 0.5 MG TAB PO PRN (07:32)
[2023-05-30 07:58] LABS: Estimated Average Glucose 114 mg/dl; Hemoglobin A1C 5.6 % (4.5-5.6)
[2023-05-30] MEDS: ALBUMIN 25% 25 GM/100 ML VIAL IV SCH ×2 (08:23→16:04)
[2023-05-30] MEDS ORDERED: ENOXAPARIN INJ 40 MG/0.4 ML SYR SQ SCH (09:00)
[2023-05-30] MEDS ORDERED: NON-FORMULARY MEDICATION (Fluticasone-Umeclidin-Vilanter [Trelegy Ellipta] 100-62.5-25 mcg INH SCH (09:00)
[2023-05-30] MEDS: UMECLIDINIUM/VILANTEROL 62.5/25MCG 7 PUFFS/INHALER INH SCH (09:09)
[2023-05-30] MEDS: FLUTICASONE FUROATE 100MCG 14 PUFFS/INHALER INH SCH (09:09)
[2023-05-30] MEDS: CALCITRIOL 0.25 MCG CAPSULE PO SCH ×2 (09:10→21:48)
[2023-05-30] MEDS: CETIRIZINE HCL 10 MG TABLET PO SCH (09:10)
[2023-05-30] MEDS: CYANOCOBALAMIN (B-12) 500 MCG TABLET PO SCH (09:11)
[2023-05-30] MEDS: CHOLECALCIFEROL 1,000 UNITS 25 MCG TAB PO SCH (09:11)
[2023-05-30] MEDS: CALCIUM CARBONATE 1250MG TAB PO SCH ×2 (09:11→21:48)
[2023-05-30] MEDS: DESIPRAMINE HCL 50 MG TAB PO SCH ×3 (09:12→22:13)
[2023-05-30] MEDS: CEROVITE ADV FORMULA TAB PO SCH (09:12)
[2023-05-30] MEDS: ESCITALOPRAM OXALATE 20 MG TAB PO SCH (09:12)
[2023-05-30] MEDS: PANTOprazole 40 MG TAB PO SCH ×2 (09:12→21:51)
[2023-05-30] MEDS: lamoTRIgine 25 MG TAB PO SCH ×2 (09:12→22:13)
[2023-05-30] MEDS: VIBEGRON 75 MG TAB PO SCH (09:13)
[2023-05-30] MEDS: MIDODRINE HCL 2.5 MG TAB PO SCH ×3 (10:09→16:10)
--- NOTE | 2023-05-30 10:10 | XRay Report ---
XR chest 1V portable CLINICAL HISTORY: Chest pain, nonspecific COMPARISON STUDY: Chest radiograph May 24, 2023. FINDINGS: Right internal jugular [id number] remains in place. Postoperative findings within the up per abdomen are incidentally noted. Elevation of the right hemidiaphragm is unchanged. Cardiomegaly i s unchanged. Mild interstitial thickening is unchanged. No evidence for pulmonary edema. No consolida tion to suggest pneumonia. IMPRESSION: No acute cardiopulmonary findings. No change in appearance of the chest. ACT 112: Negative or not required by law. Electronically signed by: Mehrdad Torre M.D. 05/30/2023 10:08 AM
[2023-05-30] MEDS: PREGABALIN 100 MG CAP PO SCH ×3 (10:12→21:51)
--- NOTE | 2023-05-30 12:05 | Cardiology Consultation ---
Date of Consultation May 30, 2023 Assessment & Plan (1) Syncope: Plan 1. Syncope: Most likely orthostatic in nature. She was notably hypotensive at the time of presentation. Her description of the episode also sounds as if low blood pressure was involved. Possibly an element of autonomic dysfunction given the absence of vasodilators in her medical regimen. We can see how she response to midodrine. 2. Dyspnea: Longstanding in nature. No evidence of pulmonary vascular c ongestion on her x-ray. Lung examination somewhat abnormal, but no gross rales. She does have an element of peripheral edema and would likely benefit from reinstitution of her diuretic. However, she does have some electrolyte derangements we will need to be addressed. NO evidence of previously documented pulmonary hypertension on echo. Normal RV size and function. 3. Sick sinus syndrome: Unable to place standard dual-chamber pacemaker due to vascular anomalies. Currently with a VVI leadless pacemaker in the right ventricle. Normal function. The rate has been set on the lower side in order to prevent competitive pacing with AV dyssynchrony. Normal function. There was some mention of bradycardia on her telemetry, but direct review reveals this to simply be undersensing of the telemetry module. No actual bradycardia (heart rate less than the lower rate limit of 55) History of Present Illness Reason for Consultation: Hypotension, dizziness Requesting Physician: William Attending Physician: Daniella Thomas MD History of Present Illness The patient is a 72-year-old woman with a history of sick sinus syndrome who has been admitted to our facility 3 times since May 20. She continues to have symptoms of dizziness, lightheadedness, syncope and falls. She also reports a longstanding history of shakes. Patient was recently felt to be hypovolemic and her diuretic was discontinued. She also had some electrolyte abnormalities which were corrected prior to her discharge. She states that after returning home she felt fairly well for a couple of days, but yesterday began having more shakes and had an episode of going out. She appeared to be preparing for an evening out when she changed from a seated to standing position. This evelyn arently resulted in her falling backwards and losing consciousness briefly. He states this has happened in a similar fashion before when changing positions. However, she also states she has dizziness at times when in a seated position. Those episodes can be fairly transient generally do not result in loss of consciousness. She has shakes which appeared to be muscular tremors associated with both arms and legs when she perform certain activity. She states that this become more problematic recently although she recalls having symptoms of this nature for many years. She is generally sedentary. She appears to have some difficulty ambulating long distances. She states she could not navigate a grocery store do much walking due to fatigue. She also has an element of dyspnea which he feels has worsened recently. She is some lower extremity edema which is also worsened. Allergies Allergy/AdvReac Type Severity Reaction Status Date / Time bethanechol Allergy Intermediate RASH, Verified 05/24/23 15:32 "FEELS FUNNY" Cephalosporins Allergy Intermediate RASH, Verified 05/30/23 20:53 DIARRHEA levofloxacin Allergy Intermediate RASH,TURNED Verified 05/24/23 15:32 RED Sulfa (Sulfonamide Allergy Intermediate Generalized Verified 05/24/23 15:32 Antibiotics) Rash ertapenem Allergy Mild RASH Verified 05/24/23 15:32 atropine Allergy Unknown ON [facility] MED Verified 05/24/23 15:32 LIST clindamycin Allergy Unknown Unknown Verified 05/24/23 15:32 dipyridamole Allergy Unknown PERSANTINE--ON Verified 05/24/23 15:32 [facility]G MED LIST droperidol Allergy Unknown Unknown Verified 05/24/23 15:32 meperidine [From Demerol] Allergy Unknown ? ALLERGY Verified 05/24/23 15:32 ON [facility] MED LIST promethazine Allergy Unknown UNKNOWN Verified 05/24/23 15:32 tobramycin Allergy Unknown UNKNOWN Verified 05/24/23 15:32 aspirin AdvReac Severe BLEEDING Verified 05/24/23 15:32 doxycycline AdvReac Severe severe Verified 05/24/23 15:32 Diarrhea, nausea metolazone AdvReac Severe ELECTROLYTE Verified 05/24/23 15:32 ISSUES--HYPOKALEMIA bupropion AdvReac Intermediate NERVOUS Verified 05/24/23 15:32 REACTION cephalexin AdvReac Intermediate GI SYMPTOMS Verified 05/24/23 15:32 morphine AdvReac Intermediate NERVOUS Verified 05/24/23 15:32 REACTION TO IT nitrofurantoin AdvReac Intermediate Vomiting Verified 05/24/23 15:32 [From Macrobid] prochlorperazine AdvReac Intermediate NERVOUS Verified 05/24/23 15:32 REACTION tedizolid AdvReac Intermediate GI SYMPTOMS Verified 05/24/23 15:32 venlafaxine [From Effexor] AdvReac Intermediate NERVOUS Verified 05/24/23 15:32 REACTION lamotrigine AdvReac Unknown tremors Verified 05/24/23 15:32 Home Medications Medication Instructions Recorded Confirmed Type colesevelam 625 mg tablet (WelChol) 625 mg PO TID 06/17/18 05/30/23 History montelukast 10 mg tablet 10 mg PO HS 06/17/18 05/30/23 History (Singulair) ipratropium 0.5 mg-albuterol 3 mg 3 ml inhalation Q4H PRN Shortness 05/05/19 05/30/23 History (2.5 mg base)/3 mL nebulization Of Breath Or Wheezing soln frlwlf-inxktpbu-cuntzrr 4 cap PO TID 05/05/19 05/30/23 History 24,000-76,000-120,000 unit capsule,delayed rel (Creon) omeprazole magnesium 20 mg 20 mg PO BID 05/17/19 05/30/23 History tablet,delayed release (Prilosec OTC) risperidone 2 mg tablet 2 mg PO HS 02/27/21 05/30/23 History desipramine 50 mg tablet 50 mg PO TID 01/23/22 05/30/23 History lorazepam 0.5 mg tablet 0.5 mg PO BID PRN Anxiety 11/06/22 05/24/23 History cholecalciferol (vitamin D3) 25 50 mcg PO QAM 11/15/22 05/30/23 History mcg (1,000 unit) capsule (Vitamin D3) escitalopram oxalate 20 mg tablet 20 mg PO QAM 11/15/22 05/30/23 History metolazone 2.5 mg tablet 2.5 mg PO WK 11/15/22 05/30/23 History oxycodone-acetaminophen 5 mg-325 1 tab PO Q6H PRN Pain 11/15/22 05/30/23 History mg tablet (Percocet) ropinirole 0.5 mg tablet 0.5 mg PO HS 11/15/22 05/30/23 History valacyclovir 500 mg tablet 500 mg PO QAM 11/15/22 05/30/23 History calcitriol 0.5 mcg capsule 0.5 mcg PO BID #60 caps 12/21/22 05/30/23 Rx fpczvibf-ktx-zpovi acid 0.4 1 tab PO DAILY 12/31/22 05/30/23 History mg-lycopene 300 mcg-lutein 250 mcg tablet (Cerovite Senior) albuterol sulfate 90 mcg/actuation 2 inh inhalation Q6H PRN Shortness 02/03/23 05/30/23 Rx breath activated powder inhaler Of Breath Or Wheezing #1 ea duloxetine 30 mg capsule,delayed 30 mg PO HS 04/17/23 05/30/23 History release vibegron 75 mg tablet (Gemtesa) 75 mg PO QAM 04/17/23 05/30/23 History pregabalin 100 mg capsule 100 mg PO TID 30 days #90 caps 04/21/23 05/30/23 Rx fluticasone propionate 50 1 spray intranasal DAILY PRN 05/20/23 05/30/23 History mcg/actuation nasal Congestion spray,suspension levothyroxine 88 mcg tablet 88 mcg PO QAM #30 tabs 05/21/23 05/30/23 Rx Lactobacil.acidophilus-Bifido.animalis 2 cap PO QPM 05/24/23 05/30/23 History 5 billion cell sprinkle capsule (Probiotic) calcium carbonate 600 mg calcium 1,200 mg PO BID 05/24/23 05/30/23 History (1,500 mg) tablet (Calcium) cyanocobalamin (vitamin B-12) 1,000 mcg PO DAILY 05/24/23 05/30/23 History 1,000 mcg tablet (Vitamin B-12) epinephrine 0.3 mg/0.3 mL 0.3 mg IM DIRECTED PRN Allergic 05/24/23 05/30/23 History injection, auto-injector (EpiPen) Reaction fluticasone fur. 100 mcg-umeclid 1 inh inhalation QAM 05/24/23 05/30/23 History 62.5 mcg-vilant 25 mcg inhalat.powder (Trelegy Ellipta) lamotrigine 25 mg tablet (Lamictal) 25 mg PO BID 05/24/23 05/30/23 History nitroglycerin 0.4 mg sublingual 0.4 mg sublingual DIRECTED PRN 05/24/23 05/30/23 History tablet (Nitrostat) Chest Pain diphenhydramine HCl 25 mg capsule 25 mg PO QID PRN itching 5 days 05/27/23 0 05/30/23 Rx (Benadryl) #14 caps cetirizine 10 mg tablet 10 mg PO DAILY 05/29/23 05/29/23 History potassium chloride 20 mEq 20 meq PO QID 05/30/23 05/30/23 History tablet,extended release Patient History Medical History Asthma Atherosclerosis of both lower extremities Bilateral nephrolithiasis Bronchiectasis Chronic diastolic (congestive) heart failure Follows with [facility] cardiology Chronic kidney disease stage 3b Chronic sinusitis Chronic urinary tract infection Chronic venous insufficiency Complex sleep apnea syndrome COPD (chronic obstructive pulmonary disease) "Well controlled" Depression Fall GERD without esophagitis H/O concussion Remote hx "a long time ago" History of anemia History of DVT (deep vein thrombosis) Hyperlipidemia per records Hypothyroidism ILD (interstitial lung disease) Incisional hernia Abdominal (from multiple surgeries/feeding tube) Junctional bradycardia Kidney stones Lumbar stenosis Lumbar transverse process fracture Pt reports lower back detioriating - can't lie flat/sleep on a chair MRSA (methicillin resistant staph aureus) culture positive Hx (Left wrist) Had 3 nasal swab and all negative (through [facility] per pt) Nocturnal hypoxemia Obesity LARRY treated with BiPAP Osteoarthritis of left knee Osteoporosis Pacemaker [employer], implanted 12/2022 (bradycardia) Pancreatic insufficiency chronic pancreatitis Peripheral neuropathy Peripheral neuropathy Pernicious anemia (08/08/13) Port-A-Cath in place right side due to poor vascular access PUD (peptic ulcer disease) Had feeding tube for 28 years (has been removed for 11 years) Pulmonary hypertension mild per 07/[address] report Pulmonary nodule seen on imaging study PVC (premature ventricular contraction) Reactive hypoglycemia Right rotator cuff tear Secondary hyperparathyroidism Sepsis 05/2020 @ [facility], urosepsis 2/2 obstructing renal stone, S/P cysto/stent and ESWL Short bowel syndrome Sleep apnea complex sleep apnea, BIPAP (non-compliant) Urinary leakage Vitamin D deficiency Wrist injury Scar tissue surrounding remote wrist ORIF several years ago resulting in intermittent inflammation per pt Surgical History H/O shoulder surgery RT arthroscopy 05/28/2021: LMA#4 atraumatic x 1 + PNB. Anesthesia postop progress note: "Pt denies SOB at this time. Block is functioning well. Vital signs stable and appropriate. Oxygenating well considering block placement and her comorbidities. Plan to discharge home with IS." History of appendectomy History of cardiac cath 08/2019 ([facility])- essentially normal coronary arteries angiographically, no stents History of cholecystectomy History of colonoscopy History of cystoscopy multiple History of esophageal dilatation History of esophagogastroduodenoscopy (EGD) History of gastrointestinal surgery multiple History of joint replacement Rt thumb History of knee replacement procedure of right knee History of open reduction and internal fixation (ORIF) procedure left wrist + manipulation (01/2018) and I&D (10/2019) History of partial gastrectomy History of prior ablation treatment Right LE in January 2020 and left LE 04/18/20 History of sinus surgery History of tonsillectomy and adenoidectomy History of total abdominal hysterectomy and bilateral salpingo-oophorectomy S/P right rotator cuff repair S/P ureteral stent placement Status post laser lithotripsy of ureteral calculus Family History Mother Family history of diabetes mellitus Sister Family history of diabetes mellitus Family history of breast cancer Father Esophageal cancer Other Family history non-contributory No family history of adverse response to anesthesia Social History Smoking Status: Never smoker Second Hand Exposure: No; Do You Dip or Chew Tobacco: No; Tobacco Cessation Education Requested by Patient: No Hx Alcohol Use: No Hx Substance Use: No Preferred Language: Estonian Communication Ability: Effective Visual Impairment: No Limitations Patroller Required: No Beliefs That Will Affect Care: None marital status: Single Current Living Situation: Personal Care Facility Current Living Situation Comment: apartment behind nursing home facility How many Children do You have: 0 Other Information That Helps Us Care for You: No Feels Safe at Home: Yes Safety Concerns: Feels Safe At This Time Assistive Devices: Walker Review of Systems Review of Systems: Per HPI Physical Exam Physical Exam: She is alert and oriented x3. Mood affect appear normal. She answered all questions appropriately. HEENT: Sclerae are anicteric. Pupils are equal and reactive to light and accommodation. Extraocular movements were intact. Neuro: Cranial nerves intact Lungs: Some poor pulmonary excursion primarily on the right. Occasional crackles. No expiratory wheezing. Normal respiratory effort. Cardiac: The rhythm was regular. S1 and S2 were normal. There are no murmurs on examination. The PMI was not markedly displaced on palpation. Extremities: Patient has bilateral radial pulses that are equal in intensity. There is no evidence cyanosis or clubbing. I would lower extremity edema bila terally Skin: There are no rashes noted on examination today. Results & Data Vital Signs (Past 12 Hours) Vital Signs Temp Pulse Pulse Pulse Resp BP BP 05/30/23 10:19 36.9 C 05/30/23 08:02 36.5 C 66 18 92/56 L 05/30/23 07:32 59 L 05/30/23 06:13 36.3 C L 05/30/23 05:28 36.3 C L 05/30/23 06:13 36.3 C L 05/30/23 03:02 57 L 05/30/23 04:19 34.7 C L 05/30/23 03:04 05/30/23 03:24 34.7 C L 60 14 121/77 05/30/23 02:54 34.7 C L 60 14 121/77 05/30/23 02:00 52 L 22 05/30/23 02:00 97/56 L 05/30/23 01:30 55 L 16 99/51 L 05/30/23 01:00 56 L 14 99/60 L 05/30/23 00:30 58 L 12 90/54 L 05/30/23 00:30 90/54 L 05/30/23 00:00 56 L 11 L 106/54 L 05/30/23 00:33 57 L Pulse Ox Pulse Ox O2 Del Method O2 Del Method 05/30/23 10:19 05/30/23 08:02 90 Room Air 05/30/23 07:32 05/30/23 06:13 05/30/23 05:28 05/30/23 06:13 05/30/23 03:02 05/30/23 04:19 05/30/23 03:04 96 Room Air 05/30/23 03:24 96 Room Air 05/30/23 02:54 96 Room Air 05/30/23 02:00 98 05/30/23 02:00 05/30/23 01:30 95 05/30/23 01:00 97 05/30/23 00:30 96 05/30/23 00:30 05/30/23 00:00 93 05/30/23 00:33 Laboratory Results Abnormal Lab Results 05/29/23 05/29/23 05/29/23 19:50 19:50 19:50 WBC 6.66 RBC 3.84 L Hgb 11.1 L Hct 33.4 L MCV 87.0 MCH 28.9 MCHC 33.2 RDW Std Deviation 52.4 H RDW Coeff of David 16.7 H Plt Count 162 MPV 10.0 Immature Gran % (Auto) 1.4 Neut % (Auto) 63.7 Lymph % (Auto) 17.3 [place] % (Auto) 11.1 Eos % (Auto) 5.9 Baso % (Auto) 0.6 Neut # (Auto) 4.25 Lymph # (Auto) 1.15 L [place] # (Auto) 0.74 H Eos # (Auto) 0.39 Baso # (Auto) 0.04 Immature Gran # (Auto) 0.09 Sodium 135 L Potassium 3.3 L Chloride 99 Carbon Dioxide 26 Anion Gap 10 BUN 56 H Creatinine 1.30 H Est Cr Clr Drug Dosing Not Reportable Est GFR ( Amer) 48.1 Est GFR (Non-Af Amer) 41.5 BUN/Creatinine Ratio 43.1 H Glucose 112 H Estimat Average Glucose 114 Hemoglobin A1c 5.6 Lactate Calcium 8.5 L Magnesium Total Bilirubin 0.6 AST 43 H ALT 34 Alkaline Phosphatase 73 Troponin I High Sens 13.4 Total Protein 6.3 Albumin 3.7 Globulin 2.6 Albumin/Globulin Ratio 1.4 Lipase 11 Urine Color Urine Appearance Urine pH Ur Specific [place] Urine Protein Urine Glucose (UA) Urine Ketones Urine Blood Urine Nitrite Urine Bilirubin Urine Urobilinogen Ur Leukocyte Esterase Urine WBC (Auto) Urine RBC (Auto) U Hyaline Cast (Auto) U Epithel Cells (Auto) Urine Bacteria (Auto) 05/29/23 05/29/23 05/29/23 21:55 21:59 23:39 WBC RBC Hgb Hct MCV MCH MCHC RDW Std Deviation RDW Coeff of David Plt Count MPV Immature Gran % (Auto) Neut % (Auto) Lymph % (Auto) [place] % (Auto) Eos % (Auto) Baso % (Auto) Neut # (Auto) Lymph # (Auto) [place] # (Auto) Eos # (Auto) Baso # (Auto) Immature Gran # (Auto) Sodium Potassium Chloride Carbon Dioxide Anion Gap BUN Creatinine Est Cr Clr Drug Dosing Est GFR ( Amer) Est GFR (Non-Af Amer) BUN/Creatinine Ratio Glucose Estimat Average Glucose Hemoglobin A1c Lactate 0.4 Calcium Magnesium 2.3 Total Bilirubin AST ALT Alkaline Phosphatase Troponin I High Sens Total Protein Albumin Globulin Albumin/Globulin Ratio Lipase Urine Color Yellow Urine Appearance Clear Urine pH 6.0 Ur Specific [place] 1.006 Urine Protein Negative Urine Glucose (UA) Negative Urine Ketones Negative Urine Blood Negative Urine Nitrite Negative Urine Bilirubin Negative Urine Urobilinogen Negative Ur Leukocyte Esterase Trace H Urine WBC (Auto) 1-5 Urine RBC (Auto) 0-4 U Hyaline Cast (Auto) 0 U Epithel Cells (Auto) 0-5 Urine Bacteria (Auto) Negative 05/30/23 05/30/23 06:08 06:08 WBC 4.97 RBC 3.69 L Hgb 10.5 L Hct 31.8 L MCV 86.2 MCH 28.5 MCHC 33.0 RDW Std Deviation 51.7 H RDW Coeff of David 16.6 H Plt Count 169 MPV 10.0 Immature Gran % (Auto) 0.6 Neut % (Auto) 62.2 Lymph % (Auto) 19.1 [place] % (Auto) 11.1 Eos % (Auto) 6.4 Baso % (Auto) 0.6 Neut # (Auto) 3.09 Lymph # (Auto) 0.95 L [place] # (Auto) 0.55 Eos # (Auto) 0.32 Baso # (Auto) 0.03 Immature Gran # (Auto) 0.03 Sodium 140 Potassium 3.0 L Chloride 101 Carbon Dioxide 33 H Anion Gap 6 BUN 50 H Creatinine 1.13 Est Cr Clr Drug Dosing 44.5 Est GFR ( Amer) 57.0 Est GFR (Non-Af Amer) 49.2 BUN/Creatinine Ratio 44.2 H Glucose 97 Estimat Average Glucose Hemoglobin A1c Lactate Calcium 8.6 Magnesium Total Bilirubin AST ALT Alkaline Phosphatase Troponin I High Sens Total Protein Albumin Globulin Albumin/Globulin Ratio Lipase Urine Color Urine Appearance Urine pH Ur Specific [place] Urine Protein Urine Glucose (UA) Urine Ketones Urine Blood Urine Nitrite Urine Bilirubin Urine Urobilinogen Ur Leukocyte Esterase Urine WBC (Auto) Urine RBC (Auto) U Hyaline Cast (Auto) U Epithel Cells (Auto) Urine Bacteria (Auto) Diagnostic Findings Echocardiogram performed 12/08/2022: Normal LV systolic function with ejection fraction of 55-60%. Normal RV size and function. Normal estimated right ventricular pressures. Mild aortic regurgitation. Mild mitral regurgitation. A CT scan of the head cervical spine and thorax was performed yesterday to exclude fracture. No fracture. Chest x-ray obtained 05/29/2023: No acute pulmonary process. I performed a complete device interrogation of her lead less pacemaker. Normal sensing and threshold. Normal device function. PG Care Time/CCT Total # of Minutes Spent Total Time Spent with Patient: Total time spent is greater than 50% in coordination of care (as documented) at patient's floor/unit and/or counseling patient: Coding Level of Care Code 51993 INT INP/OBS CARE 3/75MIN Diagnoses Syncope R55
[2023-05-30] MEDS ORDERED: HEPARIN 100 UNIT/ML 5ML FLUSH FLUSH PRN (12:34)
--- NOTE | 2023-05-30 14:04 | XCELERA ---
[id number]
[2023-05-30] MEDS: ENOXAPARIN INJ 40 MG/0.4 ML SYR SQ SCH (17:46)
[2023-05-30] MEDS ORDERED: ALBUT/IPRATROP 3MG/0.5MG NEB 3 ML VIAL NEB STA (19:44)
--- NOTE | 2023-05-30 19:46 | Communication Note ---
Date of Service: May 30, 2023 740 PM Patient complaining of headache and chest pain from coughing. Feels like something is sitting on chest. No prior episodes. 2 days history of cough productive of dark yellow mucus as per patient. Patient admits to cough symptoms sometimes after eating. SBP 90s, pulse rate 70s, RR 16, temperature 37, O2 sat 78 on room air, coarse breath sounds without obvious wheezes as per RN. Chest x-ray as per my interpretation atelectasis, elevated right hemidiaphragm, interstitial infiltrates EKG as per my interpretation : Rate 65, NSR, LAD, LAFB, LVH, T wave abnormality septal leads Troponin 61.9 Chest pain relieved by Tylenol as per patient. Patient noted to be lethargic on exam with involuntary twitching. AP Possible aspiration pneumonitis Chest pain secondary to above Troponin elevation Lethargy, possible myoclonic jerks likely from multiple neuropsychotropic home medications and narcotic Rx Rule out seizure disorder Unasyn Aspiration precautions, [employer] eval Follow troponin CT chest if with persistent elevation rule out PE Hold oxycodone given opioid toxicity concerns given myoclonic jerks EEG; Neurology consult if myoclonic jerks persistent. Psych consult re: neuropsychotropic medication management Hold neuropsychotropic medications for now until patient seen by Psychiatry
[2023-05-30] MEDS ORDERED: POTASSIUM CHLORIDE PWD 20 MEQ PACK PO STA (19:50)
[2023-05-30 20:12] LABS: Allen Test Pos (Pos); Base Excess ABG 7.2 mEq/L (-9-1.8); HCO3 ABG 33 mmol/L (19-24); Oxygen Saturation ABG 96.9 % (90-95); PCO2 ABG 51 mmHg (35-46); PO2 ABG 91 mmHg (80-95); pH ABG 7.42 (7.35-7.45)
[2023-05-30] MEDS: ACETAMINOPHEN 325 MG TAB PO PRN (20:12)
[2023-05-30] MEDS: PANCREAZE (LIPASE 16,800U) CAP PO SCH (20:21)
[2023-05-30] MEDS ORDERED: POTASSIUM CHLORIDE CRTAB 20 MEQ TABCR PO STA (20:28)
[2023-05-30 20:32] LABS: Magnesium 2.2 mg/dl (1.7-2.4)
[2023-05-30] MEDS ORDERED: risperiDONE 2 MG TABLET PO SCH (21:00)
[2023-05-30] MEDS ORDERED: DULoxetine HCL 30 MG CAP PO SCH (21:00)
[2023-05-30 21:05] LABS: Troponin I High Sensitivity 61.9 pg/ml (0-14)
[2023-05-30 21:06] LABS: Partial Thromboplastin Ratio 1.5
[2023-05-30 21:26] LABS: Partial Thromboplastin Time 42.2 Seconds (21.0-31.0)
[2023-05-30] MEDS: AMPICILLIN/SULBACTAM SOD 3,000 MG in 0.9 % SODIUM CHLORIDE 100 ML IV SCH (21:46)
[2023-05-30] MEDS: ADVANCED PROBIOTIC 1250 MG CAPSULE PO SCH (21:50)
[2023-05-30] MEDS: MONTELUKAST SODIUM 10 MG TABLET PO SCH (21:51)
[2023-05-30] MEDS: rOPINIRole HCL 0.25 MG TABLET PO SCH (21:52)
[2023-05-30] MEDS ORDERED: POTASSIUM CHLORIDE CRTAB 20 MEQ TABCR PO ONE (22:00)
[2023-05-30] MEDS ORDERED: POTASSIUM CHLORIDE PWD 20 MEQ PACK PO ONE (22:00)
--- NOTE | 2023-05-30 22:32 | Hospitalist Progress Note ---
Date of Service May 30, 2023 Assessment & Plan (1) Hypotension: Plan: Hypotension Orthostasis symptoms resulting in fall. Rule out pacemaker dysfunction, hx sinus node dysfunction sp PPM Multiple home neuropsychotropic medications contributory to fall predisposition. On midrodrine Monitor creatinine response to IV albumin Hold home diuretic for now until kidney function back to baseline Fluid restriction Cardiology consult- appreciate recs, pacer interrogation Heart failure, diastolic chronic diastolic heart failure (EF 55 to 60%, TTE 2022), equivocal volume status Patient with signs of fluid retention secondary to right-sided heart failure, hx pulm hypertension/ILD/LARRY BiPAP noncompliance as per records and kidney dysfunction. hx gastric bypass-stable chronic anemia, hemoglobin at baseline hx recurrent UTIs (ESBL E. coli infection)-stable mood/anxiety disorder, at baseline chronic pain/neuropathy-stable Hypothyroidism, euthyroid as of today's TSH hypokalemia secondary to diuretic Rx Hyperglycemia rule out DM, history of pancreatic insufficiency/malabsorption as per records Possible functional disability given recurrent admissions/compliance issues PT OT eval DVT prophylaxis. Lovenox subcu Full code Admission and Anticipated Discharge Date Admission Date: May 29, 2023 Subjective Seen. STates that she is tired, has a heaviness in her head, denies dizziness. Had shakes in the AM. Review of Systems Review of Systems: All systems reviewed & are unremarkable except as noted in Subjective Physical Exam Physical Exam: General: Alert, oriented. No acute distress Psych: Appropriate mood and affect Neuro: No gross deficits HEENT: NC/AT Resp: no increased effort of breathing. Extremities: No edema in lower extremities bilaterally. Results & Data Results & Data Vital Signs (Past 12 Hours) Vital Signs Temp Pulse Pulse Resp BP Pulse Ox O2 Del Method 05/30/23 20:07 69 18 96 Nasal Cannula 05/30/23 19:30 37.0 C 71 16 94/52 L 94 Nasal Cannula 05/30/23 15:16 36.6 C 71 18 94/55 L 93 Room Air 05/30/23 15:12 72 05/30/23 12:28 37.3 C 71 18 94/58 L 91 Room Air O2 Flow Rate 05/30/23 20:07 3 05/30/23 19:30 2 05/30/23 15:16 05/30/23 15:12 05/30/23 12:28
[2023-05-31] MEDS: ALBUMIN 25% 25 GM/100 ML VIAL IV SCH ×3 (00:50→15:41)
[2023-05-31] MEDS: AMPICILLIN/SULBACTAM SOD 3,000 MG in 0.9 % SODIUM CHLORIDE 100 ML IV SCH ×4 (02:52→21:21)
[2023-05-31] MEDS: LEVOTHYROXINE SODIUM 88 MCG TABLET PO SCH (05:52)
[2023-05-31] MEDS: ACETAMINOPHEN 325 MG TAB PO PRN ×2 (05:52→14:25)
[2023-05-31 06:13] LABS: Basophils # (auto) 0.03 K/uL (0.00-0.20); Basophils % (auto) 0.6 %; Eosinophils # (auto) 0.28 K/uL (0.00-0.50); Eosinophils % (auto) 5.5 %; Hematocrit (blood only) 30.2 % (37.0-47.0); Hemoglobin 9.7 g/dl (12.0-16.0); Immature Granulocytes # (auto) 0.02 K/uL (0.01-0.20); Immature Granulocytes % (auto) 0.4 %; Lymphocytes # (auto) 1.07 K/uL (1.20-3.40); Lymphocytes % (auto) 21.1 %; Mean Corpuscular Hemoglobin 28.5 pg (25.0-34.0); Mean Corpuscular Hgb Conc 32.1 g/dL (32.0-36.0); Mean Corpuscular Volume 88.8 fL (80.0-100.0); Mean Platelet Volume 9.8 fL (9.4-12.4); Monocytes # (auto) 0.67 K/uL (0.11-0.59); Monocytes % (auto) 13.2 %; Neutrophils # (auto) 2.99 K/uL (1.40-6.50); Neutrophils % (auto) 59.2 %; Platelet Count 155 K/uL (130-400); RDW Coefficient of Variation 16.8 % (11.5-14.5); RDW Standard Deviation 54.5 fL (36.4-46.3); White Blood Count 5.06 K/ul (4.8-10.8)
[2023-05-31 06:43] LABS: Albumin Level 4.1 gm/dl (3.4-5.0); BUN Creatinine Ratio 40.8 (10-20); Bilirubin,Total 0.7 mg/dl (0.2-1.0); Calcium 8.7 mg/dl (8.6-10.3); Creatinine Clr Calc Pharmacy 39.8 ml/min; Est GFR (African American) 50.5 ml/min; Est GFR (Non-African American) 43.5 ml/min; Potassium 3.7 mmol/L (3.5-5.1); Total Protein 6.1 gm/dl (6.0-8.3)
[2023-05-31 06:53] LABS: Partial Thromboplastin Ratio 1.1; Partial Thromboplastin Time 31.5 Seconds (21.0-31.0)
--- NOTE | 2023-05-31 06:53 | XRay Report ---
XR chest 1V portable HISTORY: cough COMPARISON: Chest 05/29/2023. FINDINGS: No pneumothorax. A right jugular Port-A-Cath terminates in the SVC. The heart remains enlar ged. Postoperative changes again noted within the upper abdomen. Chronic interstitial thickening pers ists. No new focal lung consolidations identified. IMPRESSION: No significant change compared to the prior study. No acute process. ACT 112: Negative or not required by law. Electronically signed by: Noel Crenshaw M.D. 05/31/2023 6:50 AM
[2023-05-31] MEDS: MIDODRINE HCL 2.5 MG TAB PO SCH ×3 (07:42→16:19)
[2023-05-31] MEDS: PANCREAZE (LIPASE 16,800U) CAP PO SCH ×3 (07:42→16:20)
[2023-05-31] MEDS ORDERED: SODIUM CHLORIDE 0.9% 1,000 ML IV SCH (08:00)
[2023-05-31] MEDS: CEROVITE ADV FORMULA TAB PO SCH (08:35)
[2023-05-31] MEDS: CHOLECALCIFEROL 1,000 UNITS 25 MCG TAB PO SCH (08:35)
[2023-05-31] MEDS: PANTOprazole 40 MG TAB PO SCH ×2 (08:35→21:23)
[2023-05-31] MEDS: CETIRIZINE HCL 10 MG TABLET PO SCH (08:35)
[2023-05-31] MEDS: CALCITRIOL 0.25 MCG CAPSULE PO SCH ×2 (08:36→21:23)
[2023-05-31] MEDS: FLUTICASONE PROPIONATE NA SPR 16 GM BTL PRN (08:36)
[2023-05-31] MEDS: CALCIUM CARBONATE 1250MG TAB PO SCH ×2 (08:36→21:23)
[2023-05-31] MEDS: UMECLIDINIUM/VILANTEROL 62.5/25MCG 7 PUFFS/INHALER INH SCH (08:37)
[2023-05-31] MEDS: FLUTICASONE FUROATE 100MCG 14 PUFFS/INHALER INH SCH (08:37)
[2023-05-31] MEDS: CYANOCOBALAMIN (B-12) 500 MCG TABLET PO SCH (08:38)
[2023-05-31] MEDS: VIBEGRON 75 MG TAB PO SCH (08:38)
[2023-05-31] MEDS: ESCITALOPRAM OXALATE 20 MG TAB PO SCH (08:39)
[2023-05-31] MEDS: TRIAMCINOLONE ACET 0.1% CR 80 GM TUBE EXT PRN (13:48)
[2023-05-31] MEDS: ENOXAPARIN INJ 40 MG/0.4 ML SYR SQ SCH (17:25)
--- NOTE | 2023-05-31 20:38 | Psychiatric Consultation ---
Date of Consultation May 31, 2023 Impression / Recommendations Impression 72 y/o woman with a long history of depression (and possibly other psychiatric problems as implied by medications) that she reports as being completely controlled on escitalopram and desipramine. Duloxetine was added fairly recently for reasons of which she is unaware. She is hospitalized with symptoms (falls appearing related to postural hypotension) that could very likely be at least exacerbated by, and plausibly attributed altogether to, her psychiatric medications, particularly desipramine. Desipramine is a nonselective norepinephrine reuptake inhibitor with scant serotonergic effect but significant anticholinergic, antihistaminic, and alpha adrenergic effects. Combining it with a serotonin uptake inhibitor essentially serves the pharmacologic role of SNRI's such as venlafaxine and duloxetine. It is a fairly potent Class 1A (quinidine-like) antiarrhythmic and can easily cause significant cardiotoxicity, the risk of which increases with age. Therapeutic doses tend to range from 100 mg/day to 300 mg/day, and it's entirely possible that her dose could lead to excessive blood level (unfortunately, it's been too long since it was stopped for a TCA level to be very informative). I can't know why duloxetine was added to her regimen, but generally speaking we would try to avoid using desipramine at all in patients her age, let alone at the dose she'd been on. Since the combination of desipramine and escitalopram should be pharmacologically replaceable with duloxetine, it's entirely possible that the intent may have been to replace that combination with duloxetine monotherapy and that cross-titration became interrupted when her psychiatrist left practice. The low dose, about half the 60 mg/day that both in-vivo and in- vitro studies suggest is a threshold for efficacy, may also support this hypothesis. Based on her history, I suspect escitalopram monotherapy is likely to lead to relapse. In the context of her overall health and the symptoms for which she's currently hospitalized, resuming desipramine does not seem likely to be safe. There is a reasonably good chance that duloxetine monotherapy, at a dose of at least 60 mg/day, could suffice. Given her concurrent use of 3 antidepressants which together inhibit serotonin and norepinephrine reuptake, I suspect a higher dose will likely be required. (1) Recurrent major depression in remission: Plan I heartily agree with your having stopped desipramine. I recommend stopping escitalopram and resuming duloxetine at 30 mg/day then after one day at that dose increasing to 40 mg/day for 3 days, then 60 mg daily. I don't think further dose titration should be undertaken during the current hospitalization but should be considered strongly on an outpatient basis. Pt should be working with a psychiatric practitioner (ideally a geropsychiatrist) on an outpatient basis at least until her psychiatric medication regimen is sorted out and can be shown to be working appropriately. Psych History Identifying Data JOSHUA BRASWELL is a 72-year-old woman with a history of recurrent major depression, admitted on 05/29/2023 for falls. Consult is by the hospitalist service for "neurospychotropic med mx." Chief Complaint "I just kept falling". History of Present Illness I was asked to see Ms. Braswell for recommendations about her somewhat attention- getting combination of psychiatric medications. She came to the ED after a fall when she stood from the toilet. She reports "4 or 5" such falls over the past few weeks and is worried because her sister recently fell and broke her wrist. Prior to admission, pt had been on desipramine 250 mg/day, duloxetine 30 mg/day, and escitalopram 20 mg/day among numerous other medications. The desipramine and duloxetine were stopped on admission and the escitalopram was continued. Pt reports she's been on desipramine for at least 30 years. She's not sure just how the dose changed over they years but says it's been at the recent regimen of 50 mg TID and 100 mg QHS for "ages". She can't recall if she ever had blood drawn to check therapeutic drug levels. Around 20 years ago, escitalopram was added (which would have been not long after that drug's approval in the [place]) "because the desipramine seemed to stop working". She thinks the doses of those have remained unchanged until now and says she's had practically no significant depression symptoms since. The last significant symptomatic period was about 5 years ago when her mother . She describes that episode as having been self- limited and says her medications were not changed during that time. She says the duloxetine was started a bit less than a year ago. She's not sure why, since she was having no mood symptoms and isn't aware of any side effects. Past treatment history is not directly available, but she is listed as having a prescription for risperidone, suggesting the possibility of bipolar rather than unipolar depression, as well as for lamotrigine - it's unclear whether this was prescribed for psychiatric or other reasons, and pt herself isn't sure. Pt denies any current mood symptoms. She presents as pleasantly cheerful and cooperative, though appropriately concerned about falls. Past Psychiatric History Current Psychiatric Diagnosis: ?MDD Outpatient Services: meds being refilled by PCP since psychiatrist left practice Previous Psych Admissions: denies History of Previous Suicide Attempt: No Allergies Allergy/AdvReac Type Severity Reaction Status Date / Time bethanechol Allergy Intermediate RASH, Verified 05/24/23 15:32 "FEELS FUNNY" Cephalosporins Allergy Intermediate RASH, Verified 05/30/23 20:53 DIARRHEA levofloxacin Allergy Intermediate RASH,TURNED Verified 05/24/23 15:32 RED Sulfa (Sulfonamide Allergy Intermediate Generalized Verified 05/24/23 15:32 Antibiotics) Rash ertapenem Allergy Mild RASH Verified 05/24/23 15:32 atropine Allergy Unknown ON [facility] MED Verified 05/24/23 15:32 LIST clindamycin Allergy Unknown Unknown Verified 05/24/23 15:32 dipyridamole Allergy Unknown PERSANTINE--ON Verified 05/24/23 15:32 [facility] MED LIST droperidol Allergy Unknown Unknown Verified 05/24/23 15:32 meperidine [From Demerol] Allergy Unknown ? ALLERGY Verified 05/24/23 15:32 ON [facility] MED LIST promethazine Allergy Unknown UNKNOWN Verified 05/24/23 15:32 tobramycin Allergy Unknown UNKNOWN Verified 05/24/23 15:32 aspirin AdvReac Severe BLEEDING Verified 05/24/23 15:32 doxycycline AdvReac Severe severe Verified 05/24/23 15:32 Diarrhea, nausea metolazone AdvReac Severe ELECTROLYTE Verified 05/24/23 15:32 ISSUES--HYPOKALEMIA bupropion AdvReac Intermediate NERVOUS Verified 05/24/23 15:32 REACTION cephalexin AdvReac Intermediate GI SYMPTOMS Verified 05/24/23 15:32 morphine AdvReac Intermediate NERVOUS Verified 05/24/23 15:32 REACTION TO IT nitrofurantoin AdvReac Intermediate Vomiting Verified 05/24/23 15:32 [From Macrobid] prochlorperazine AdvReac Intermediate NERVOUS Verified 05/24/23 15:32 REACTION tedizolid AdvReac Intermediate GI SYMPTOMS Verified 05/24/23 15:32 venlafaxine [From Effexor] AdvReac Intermediate NERVOUS Verified 05/24/23 15:32 REACTION lamotrigine AdvReac Unknown tremors Verified 05/24/23 15:32 Home Medications Medication Instructions Recorded Confirmed Type colesevelam 625 mg tablet (WelChol) 625 mg PO TID 06/17/18 05/30/23 History montelukast 10 mg tablet 10 mg PO HS 06/17/18 05/30/23 History (Singulair) ipratropium 0.5 mg-albuterol 3 mg 3 ml inhalation Q4H PRN Shortness 05/05/19 05/30/23 History (2.5 mg base)/3 mL nebulization Of Breath Or Wheezing soln vhgeex-muvzffsq-pkirxqy 4 cap PO TID 05/05/19 05/30/23 History 24,000-76,000-120,000 unit capsule,delayed rel (Creon) omeprazole magnesium 20 mg 20 mg PO BID 05/17/19 05/30/23 History tablet,delayed release (Prilosec OTC) risperidone 2 mg tablet 2 mg PO HS 02/27/21 05/30/23 History desipramine 50 mg tablet 50 mg PO TID 01/23/22 05/30/23 History lorazepam 0.5 mg tablet 0.5 mg PO BID PRN Anxiety 11/06/22 05/24/23 History cholecalciferol (vitamin D3) 25 50 mcg PO QAM 11/15/22 05/30/23 History mcg (1,000 unit) capsule (Vitamin D3) escitalopram oxalate 20 mg tablet 20 mg PO QAM 11/15/22 05/30/23 History metolazone 2.5 mg tablet 2.5 mg PO WK 11/15/22 05/30/23 History oxycodone-acetaminophen 5 mg-325 1 tab PO Q6H PRN Pain 11/15/22 05/30/23 History mg tablet (Percocet) ropinirole 0.5 mg tablet 0.5 mg PO HS 11/15/22 05/30/23 History valacyclovir 500 mg tablet 500 mg PO QAM 11/15/22 05/30/23 History calcitriol 0.5 mcg capsule 0.5 mcg PO BID #60 caps 12/21/22 05/30/23 Rx swsoivpv-dtx-jurue acid 0.4 1 tab PO DAILY 12/31/22 05/30/23 History mg-lycopene 300 mcg-lutein 250 mcg tablet (Cerovite Senior) albuterol sulfate 90 mcg/actuation 2 inh inhalation Q6H PRN Shortness 02/03/23 05/30/23 Rx breath activated powder inhaler Of Breath Or Wheezing #1 ea duloxetine 30 mg capsule,delayed 30 mg PO HS 04/17/23 05/30/23 History release vibegron 75 mg tablet (Gemtesa) 75 mg PO QAM 04/17/23 05/30/23 History pregabalin 100 mg capsule 100 mg PO TID 30 days #90 caps 04/21/23 05/30/23 Rx fluticasone propionate 50 1 spray intranasal DAILY PRN 05/20/23 05/30/23 History mcg/actuation nasal Congestion spray,suspension levothyroxine 88 mcg tablet 88 mcg PO QAM #30 tabs 05/21/23 05/30/23 Rx Lactobacil.acidophilus-Bifido.animalis 2 cap PO QPM 05/24/23 05/30/23 History 5 billion cell sprinkle capsule (Probiotic) calcium carbonate 600 mg calcium 1,200 mg PO BID 05/24/23 05/30/23 History (1,500 mg) tablet (Calcium) cyanocobalamin (vitamin B-12) 1,000 mcg PO DAILY 05/24/23 05/30/23 History 1,000 mcg tablet (Vitamin B-12) epinephrine 0.3 mg/0.3 mL 0.3 mg IM DIRECTED PRN Allergic 05/24/23 05/30/23 History injection, auto-injector (EpiPen) Reaction fluticasone fur. 100 mcg-umeclid 1 inh inhalation QAM 05/24/23 05/30/23 History 62.5 mcg-vilant 25 mcg inhalat.powder (Trelegy Ellipta) lamotrigine 25 mg tablet (Lamictal) 25 mg PO BID 05/24/23 05/30/23 History nitroglycerin 0.4 mg sublingual 0.4 mg sublingual DIRECTED PRN 05/24/23 05/30/23 History tablet (Nitrostat) Chest Pain diphenhydramine HCl 25 mg capsule 25 mg PO QID PRN itching 5 days 05/27/23 05/30/23 Rx (Benadryl) #14 caps cetirizine 10 mg tablet 10 mg PO DAILY 05/29/23 05/29/23 History potassium chloride 20 mEq 20 meq PO QID 05/30/23 05/30/23 History tablet,extended release Patient History Medical History (Updated 05/31/23 @ 20:58 by Tano Amaro MD) Asthma Atherosclerosis of both lower extremities Bilateral nephrolithiasis Bronchiectasis Chronic diastolic (congestive) heart failure [place] [facility] [place] Chronic kidney disease stage 3b Chronic sinusitis Chronic urinary tract infection Chronic venous insufficiency Complex sleep apnea syndrome COPD (chronic obstructive pulmonary disease) "Well controlled" Depression Fall GERD without esophagitis H/O concussion Remote hx "a long time ago" History of anemia History of DVT (deep vein thrombosis) Hyperlipidemia per records Hypothyroidism ILD (interstitial lung disease) Incisional hernia Abdominal (from multiple surgeries/feeding tube) Junctional bradycardia Kidney stones Lumbar stenosis Lumbar transverse process fracture Pt reports lower back detioriating - can't lie flat/sleep on a chair MRSA (methicillin resistant staph aureus) culture positive Hx (Left wrist) Had 3 nasal swab and all negative (through [facility]) Nocturnal hypoxemia Obesity LARRY treated with BiPAP Osteoarthritis of left knee Osteoporosis Pacemaker Medtronic, implanted 12/2022 (bradycardia) Pancreatic insufficiency chronic pancreatitis Peripheral neuropathy Peripheral neuropathy Pernicious anemia (08/08/13) Port-A-Cath in place right side due to poor vascular access PUD (peptic ulcer disease) Had feeding tube for 28 years (has been removed for 11 years) Pulmonary hypertension mild per 07/[address] report Pulmonary nodule seen on imaging study PVC (premature ventricular contraction) Reactive hypoglycemia Recurrent major depression in remission Right rotator cuff tear Secondary hyperparathyroidism Sepsis 05/2020 @ [facility], urosepsis 2/2 obstructing renal stone, S/P cysto/stent and ESWL Short bowel syndrome Sleep apnea complex sleep apnea, BIPAP (non-compliant) Urinary leakage Vitamin D deficiency Wrist injury Scar tissue surrounding remote wrist ORIF several years ago resulting in intermittent inflammation per pt Surgical History H/O shoulder surgery RT arthroscopy 05/28/2021: LMA#4 atraumatic x 1 + PNB. Anesthesia postop progress note: "Pt denies SOB at this time. Block is functioning well. Vital signs stable and appropriate. Oxygenating well considering block placement and her comorbidities. Plan to discharge home with IS." History of appendectomy History of cardiac cath 08/2019 ([facility])- essentially normal coronary arteries angiographically, no stents History of cholecystectomy History of colonoscopy History of cystoscopy multiple History of esophageal dilatation History of esophagogastroduodenoscopy (EGD) History of gastrointestinal surgery multiple History of joint replacement Rt thumb History of knee replacement procedure of right knee History of open reduction and internal fixation (ORIF) procedure left wrist + manipulation (01/2018) and I&D (10/2019) History of partial gastrectomy History of prior ablation treatment Right LE in January 2020 and left LE 04/18/20 History of sinus surgery History of tonsillectomy and adenoidectomy History of total abdominal hysterectomy and bilateral salpingo-oophorectomy S/P right rotator cuff repair S/P ureteral stent placement Status post laser lithotripsy of ureteral calculus Family History Mother Family history of diabetes mellitus Sister Family history of diabetes mellitus Family history of breast cancer Father Esophageal cancer Other Family history non-contributory No family history of adverse response to anesthesia Social History Smoking Status: Never smoker Second Hand Exposure: No; Do You Dip or Chew Tobacco: No; Tobacco Cessation Education Requested by Patient: No Hx Alcohol Use: No Hx Substance Use: No Preferred Language: Mohawk Communication Ability: Effective Visual Impairment: No Limitations Highwall Drill Operator Required: No Beliefs That Will Affect Care: None marital status: Single Current Living Situation: Personal Care Facility Current Living Situation Comment: apartment behind long-term facility How many Children do You have: 0 Other Information That Helps Us Care for You: No Feels Safe at Home: Yes Safety Concerns: Feels Safe At This Time Assistive Devices: Walker Physical Exam Vital Signs (Past 24 Hours): Last Vital Signs Temp 36.7 C 05/31/23 19:23 Pulse 68 05/31/23 19:23 Resp 18 05/31/23 19:23 BP 119/71 05/31/23 19:23 Pulse Ox 95 05/31/23 19:23 O2 Del Method Nasal Cannula 05/31/23 19:23 O2 Flow Rate 2 05/31/23 19:23 Exam Statement: I've reviewed the exams done in the ED and by the hospitalist Review of Systems Psychiatric: + abnormal sleep pattern (has complex sleep apnea); no depression, no hopelessness, no anhedonia, no change in appetite, no suicidal ideation, no anxiety, no confusion and no hallucinations Results & Data (PSY) Medications Administered Acetaminophen (Acetaminophen 325 Mg Tab) 650 mg PO Q6H PRN PRN Reason: Fever/Pain Stop: 06/28/23 23:37 Last Admin: 05/31/23 14:25 Dose: 650 mg Documented By: Admin: 05/31/23 05:52 Dose: 650 mg Documented By: Admin: 05/30/23 20:12 Dose: 650 mg Documented By: DI Lipase/Protease/Amylase (Pancreaze (Lipase 16,800u) Cap) 5 cap PO TIDM [facility] Stop: 06/29/23 17:59 Last Admin: 05/31/23 16:20 Dose: 5 cap Documented By: Admin: 05/31/23 12:11 Dose: 5 cap Documented By: Admin: 05/31/23 07:42 Dose: 5 cap Documented By: [facility] Admin: 05/30/23 20:21 Dose: 5 cap Documented By: DI Calcitriol (Calcitriol 0.25 Mcg Capsule) 0.5 mcg PO BID CATE Stop: 06/29/23 08:59 Last Admin: 05/31/23 08:36 Dose: 0.5 mcg Documented By: Admin: 05/30/23 21:48 Dose: 0.5 mcg Documented By: Admin: 05/30/23 09:10 Dose: 0.5 mcg Documented By: PORTILLO Calcium Carbonate (Calcium Carbonate 1250mg Tab) 1,250 mg PO BID CATE Stop: 06/29/23 08:59 Last Admin: 05/31/23 08:36 Dose: 1,250 mg Documented By: [facility] Admin: 05/30/23 21:48 Dose: 1,250 mg Documented By: [facility] Admin: 05/30/23 09:11 Dose: 1,250 mg Documented By: PORTILLO Cetirizine HCl (Cetirizine Hcl 10 Mg Tablet) 10 mg PO DAILY CATE Stop: 06/29/23 08:59 Last Admin: 05/31/23 08:35 Dose: 10 mg Documented By: Admin: 05/30/23 09:10 Dose: 10 mg Documented By: PORTILLO Cyanocobalamin (Cyanocobalamin (B-12) 500 Mcg Tablet) 1,000 mcg PO DAILY CATE Stop: 06/29/23 08:59 Last Admin: 05/31/23 08:38 Dose: 1,000 mcg Documented By: Admin: 05/30/23 09:11 Dose: 1,000 mcg Documented By: PORTILLO Desipramine HCl (Desipramine Hcl 50 Mg Tab) 50 mg PO TID CATE Stop: 06/29/23 08:59 Last Admin: 05/30/23 22:13 Dose: Not Given Documented By: Admin: 05/30/23 13:34 Dose: 50 mg Documented By: Admin: 05/30/23 09:12 Dose: 50 mg Documented By: PORTILLO Duloxetine HCl (Duloxetine Hcl 30 Mg Cap) 30 mg PO HS CATE Stop: 06/29/23 20:59 Last Admin: 05/30/23 22:13 Dose: Not Given Documented By: DI Enoxaparin Sodium (Enoxaparin Inj 40 Mg/0.4 Ml Syr) 40 mg SQ QPM@1800 [facility] Stop: 06/29/23 17:59 Last Admin: 05/31/23 17:25 Dose: 40 mg Documented By: Admin: 05/30/23 17:46 Dose: 40 mg Documented By: PORTILLO Escitalopram Oxalate (Escitalopram Oxalate 20 Mg Tab) 20 mg PO QAM CATE Stop: 06/29/23 08:59 Last Admin: 05/31/23 08:39 Dose: 20 mg Documented By: Admin: 05/30/23 09:12 Dose: 20 mg Documented By: PORTILLO Fluticasone Furoate (Fluticasone Furoate 100mcg 14 Puffs/Inhaler) 1 puffs INH DAILY CATE Stop: 06/29/23 08:59 Last Admin: 05/31/23 08:37 Dose: 1 puffs Documented By: Admin: 05/30/23 09:09 Dose: 1 puffs Documented By: PORTILLO Fluticasone Propionate (Fluticasone Propionate Na Spr 16 Gm Btl) 1 sprays NA DAILY PRN PRN Reason: Congestion Stop: 06/29/23 07:29 Last Admin: 05/31/23 08:36 Dose: 1 sprays Documented By: PORTILLO Albumin Human (Albumin 25%) 25 gm in 100 mls @ 50 mls/hr IV Q8H CATE Stop: 06/02/23 07:59 Last Infusion: 05/31/23 17:43 Dose: 0 mls/hr Documented By: Admin: 05/31/23 15:41 Dose: 50 mls/hr Documented By: Infusion: 05/31/23 09:19 Dose: 0 mls/hr Documented By: Admin: 05/31/23 07:33 Dose: 50 mls/hr Documented By: Infusion: 05/31/23 02:50 Dose: 0 mls/hr Documented By: Admin: 05/31/23 00:50 Dose: 50 mls/hr Documented By: Infusion: 05/30/23 18:06 Dose: 0 mls/hr Documented By: Admin: 05/30/23 16:04 Dose: 50 mls/hr Documented By: Infusion: 05/30/23 10:07 Dose: 0 mls/hr Documented By: Admin: 05/30/23 08:23 Dose: 50 mls/hr Documented By: PORTILLO Ampicillin Sodium/Sulbactam Sodium 3,000 mg/ Sodium Chloride 108 mls @ 200 mls/hr IV Q6H CATE; Protocol Stop: 06/06/23 20:59 Last Infusion: 05/31/23 15:41 Dose: 0 mls/hr Documented By: Admin: 05/31/23 14:26 Dose: 200 mls/hr Documented By: Infusion: 05/31/23 09:18 Dose: 0 mls/hr Documented By: Admin: 05/31/23 08:32 Dose: 200 mls/hr Documented By: Infusion: 05/31/23 03:25 Dose: 0 mls/hr Documented By: Admin: 05/31/23 02:52 Dose: 200 mls/hr Documented By: Infusion: 05/30/23 22:19 Dose: 0 mls/hr Documented By: Admin: 05/30/23 21:46 Dose: 200 mls/hr Documented By: SRS Lactobacillus Acidophilus (Advanced Probiotic 1250 Mg Capsule) 2 cap PO QPM CATE Stop: 06/29/23 20:59 Last Admin: 05/30/23 21:50 Dose: 2 cap Documented By: DI Lamotrigine (Lamotrigine 25 Mg Tab) 25 mg PO BID [facility] Stop: 06/29/23 08:59 Last Admin: 05/30/23 22:13 Dose: Not Given Documented By: [facility] Admin: 05/30/23 09:12 Dose: 25 mg Documented By: PORTILLO Levothyroxine Sodium (Levothyroxine Sodium 88 Mcg Tablet) 88 mcg PO DAILYBB [facility] Stop: 06/30/23 06:29 Last Admin: 05/31/23 05:52 Dose: 88 mcg Documented By: DI Midodrine (Midodrine Hcl 2.5 Mg Tab) 2.5 mg PO TID@0800,1200,1700 [facility] Stop: 06/29/23 07:59 Last Admin: 05/31/23 16:19 Dose: 2.5 mg Documented By: [facility] Admin: 05/31/23 12:11 Dose: 2.5 mg Documented By: [facility] Admin: 05/31/23 07:42 Dose: 2.5 mg Documented By: [facility] Admin: 05/30/23 16:10 Dose: 2.5 mg Documented By: [facility] Admin: 05/30/23 13:35 Dose: 2.5 mg Documented By: [facility] Admin: 05/30/23 10:09 Dose: 2.5 mg Documented By: PORTILLO Miscellaneous (Colesevelam [Welchol] 625 Mg ~ Order Awaiting Action) 1 each N/A QS [facility] Stop: 06/29/23 07:59 Last Admin: 05/31/23 16:21 Dose: Not Given Documented By: [facility] Admin: 05/31/23 13:51 Dose: Not Given Documented By: [facility] Admin: 05/31/23 00:04 Dose: Not Given Documented By: [facility] Admin: 05/30/23 17:47 Dose: Not Given Documented By: [facility] Admin: 05/30/23 10:10 Dose: Not Given Documented By: PORTILLO Montelukast Sodium (Montelukast Sodium 10 Mg Tablet) 10 mg PO HS [facility] Stop: 06/29/23 20:59 Last Admin: 05/30/23 21:51 Dose: 10 mg Documented By: [facility] Multivitamins/Minerals (Cerovite Adv Formula Tab) 1 tab PO DAILY [facility] Stop: 06/29/23 08:59 Last Admin: 05/31/23 08:35 Dose: 1 tab Documented By: Admin: 05/30/23 09:12 Dose: 1 tab Documented By: PORTILLO Oxycodone HCl (Oxycodone Hcl Ir 5 Mg Tab (Immediate Release)) 5 mg PO Q4H PRN PRN Reason: Pain Stop: 06/12/23 23:37 Last Admin: 05/30/23 11:38 Dose: 5 mg Documented By: PORTILLO Pantoprazole Sodium (Pantoprazole 40 Mg Tab) 40 mg PO BID CATE Stop: 06/29/23 08:59 Last Admin: 05/31/23 08:35 Dose: 40 mg Documented By: Admin: 05/30/23 21:51 Dose: 40 mg Documented By: Admin: 05/30/23 09:12 Dose: 40 mg Documented By: PORTILLO Pregabalin (Pregabalin 100 Mg Cap) 100 mg PO TID [facility] Stop: 06/29/23 08:59 Last Admin: 05/30/23 21:51 Dose: Not Given Documented By: Admin: 05/30/23 13:36 Dose: 100 mg Documented By: Admin: 05/30/23 10:12 Dose: 100 mg Documented By: PORTILLO Risperidone (Risperidone 2 Mg Tablet) 2 mg PO HS [facility] Stop: 06/29/23 20:59 Last Admin: 05/30/23 22:13 Dose: Not Given Documented By: DI Ropinirole HCl (Ropinirole Hcl 0.25 Mg Tablet) 0.5 mg PO HS [facility] Stop: 06/29/23 20:59 Last Admin: 05/30/23 21:52 Dose: Not Given Documented By: DI Triamcinolone Acetonide (Triamcinolone Acet 0.1% Cr 80 Gm Tube) 1 appln EXT Q6H PRN PRN Reason: itching Stop: 06/30/23 12:47 Last Admin: 05/31/23 13:48 Dose: 1 appln Documented By: PORTILLO Umeclidinium/Vilanterol (Umeclidinium/Vilanterol 62.5/25mcg 7 Puffs/Inhaler) 1 puffs INH DAILY CATE Stop: 06/29/23 08:59 Last Admin: 05/31/23 08:37 Dose: 1 puffs Documented By: Admin: 05/30/23 09:09 Dose: 1 puffs Documented By: PORTILLO Vibegron (Vibegron 75 Mg Tab) 75 mg PO QAM [facility] Stop: 06/29/23 08:59 Last Admin: 05/31/23 08:38 Dose: 75 mg Documented By: Admin: 05/30/23 09:13 Dose: 75 mg Documented By: PORTILLO Vitamin D (Cholecalciferol 1,000 Units 25 Mcg Tab) 1,000 units PO QAM [facility] Stop: 06/29/23 08:59 Last Admin: 05/31/23 08:35 Dose: 1,000 units Documented By: Admin: 05/30/23 09:11 Dose: 1,000 units Documented By: PORTILLO Coding Level of Care Code 66026 IN/OBS CONSULT LVL 4,60M Diagnoses Recurrent major depression in remission F33.40 Time Spent (min) 71
--- NOTE | 2023-05-31 20:59 | Hospitalist Progress Note ---
Date of Service May 31, 2023 Assessment & Plan (1) Hypotension: Plan: Chest Pain/Myoclonic jerks Noted and worked up overnight by Road Builder Repeat chest XRAY with no acute changes Possible pneumonitis- was started on empiric Unasyn, continue For myoclonic jerks, EEG, neuropsych eval and holding meds -appreciate psychiatry recs Hypotension Orthostasis symptoms likely resulting in fall. Rule out pacemaker dysfunction, hx sinus node dysfunction sp PPM Multiple home neuropsychotropic medications contributory to fall predisposition. Psych consult per thinner sprayer for further evaluation. On midrodrine, continue Monitor creatinine response to IV albumin Hold home diuretic for now until kidney function back to baseline Fluid restriction Cardiology consult- appreciate recs, pacer interrogation Heart failure, diastolic chronic diastolic heart failure (EF 55 to 60%, TTE 2022), equivocal volume status Patient with signs of fluid retention secondary to right-sided heart failure, hx pulm hypertension/ILD/LARRY BiPAP noncompliance as per records and kidney dysfunction. hx gastric bypass-stable chronic anemia, hemoglobin at baseline hx recurrent UTIs (ESBL E. coli infection)-stable mood/anxiety disorder, at baseline chronic pain/neuropathy-stable Hypothyroidism, euthyroid as of today's TSH hypokalemia secondary to diuretic Rx Hyperglycemia rule out DM, history of pancreatic insufficiency/malabsorption as per records Possible functional disability given recurrent admissions/compliance issues PT OT eval DVT prophylaxis. Lovenox subcu Full code Admission and Anticipated Discharge Date Admission Date: May 29, 2023 Subjective Seen this AM. Was resting comfortably. No myoclonic jerks while sleeping. Reportedly, had myoclonic jerks overnight. Pt states this usually occurs, not the first time. Also having chest pain. Review of Systems Review of Systems: All systems reviewed & are unremarkable except as noted in Subjective Physical Exam Physical Exam: General: Alert, oriented. No acute distress Psych: Appropriate mood and affect Neuro: No myoclonic jerks noted HEENT: NC/AT Resp: no increased effort of breathing. Results & Data Results & Data Vital Signs (Past 12 Hours) Vital Signs Temp Pulse Pulse Resp BP BP Pulse Ox 05/31/23 16:06 61 05/31/23 15:28 36.6 C 64 16 102/64 98 05/31/23 11:06 36.4 C L 61 16 105/68 99 05/31/23 07:48 O2 Del Method O2 Flow Rate 05/31/23 16:06 05/31/23 15:28 Nasal Cannula 2 05/31/23 11:06 Nasal Cannula 2 05/31/23 07:48 Nasal Cannula 2
[2023-05-31] MEDS: ADVANCED PROBIOTIC 1250 MG CAPSULE PO SCH (21:23)
[2023-05-31] MEDS: MONTELUKAST SODIUM 10 MG TABLET PO SCH (21:24)
[2023-06-01] MEDS: ALBUMIN 25% 25 GM/100 ML VIAL IV SCH ×2 (00:16→07:31)
[2023-06-01] MEDS: ACETAMINOPHEN 325 MG TAB PO PRN (02:04)
[2023-06-01] MEDS: AMPICILLIN/SULBACTAM SOD 3,000 MG in 0.9 % SODIUM CHLORIDE 100 ML IV SCH ×4 (03:57→21:08)
[2023-06-01] MEDS: TRIAMCINOLONE ACET 0.1% CR 80 GM TUBE EXT PRN ×2 (04:08→21:13)
[2023-06-01] MEDS: LEVOTHYROXINE SODIUM 88 MCG TABLET PO SCH (06:16)
[2023-06-01 07:38] LABS: Basophils # (auto) 0.03 K/uL (0.00-0.20); Basophils % (auto) 0.6 %; Eosinophils % (auto) 7.5 %; Hematocrit (blood only) 29.6 % (37.0-47.0); Hemoglobin 9.4 g/dl (12.0-16.0); Immature Granulocytes # (auto) 0.03 K/uL (0.01-0.20); Immature Granulocytes % (auto) 0.6 %; Lymphocytes # (auto) 0.86 K/uL (1.20-3.40); Lymphocytes % (auto) 16.2 %; Mean Corpuscular Hemoglobin 28.7 pg (25.0-34.0); Mean Corpuscular Hgb Conc 31.8 g/dL (32.0-36.0); Mean Corpuscular Volume 90.5 fL (80.0-100.0); Mean Platelet Volume 10.2 fL (9.4-12.4); Monocytes # (auto) 0.63 K/uL (0.11-0.59); Monocytes % (auto) 11.9 %; Neutrophils # (auto) 3.36 K/uL (1.40-6.50); Neutrophils % (auto) 63.2 %; Platelet Count 163 K/uL (130-400); RDW Coefficient of Variation 16.8 % (11.5-14.5); RDW Standard Deviation 56.1 fL (36.4-46.3); Red Blood Count 3.27 M/uL (4.20-5.40); White Blood Count 5.31 K/ul (4.8-10.8)
[2023-06-01] MEDS: PANCREAZE (LIPASE 16,800U) CAP PO SCH ×3 (07:38→17:29)
[2023-06-01] MEDS: MIDODRINE HCL 2.5 MG TAB PO SCH ×2 (07:40→11:42)
[2023-06-01 08:01] LABS: Albumin Globulin Ratio 2.3 (0.9-2); Albumin Level 4.3 gm/dl (3.4-5.0); Bilirubin,Total 0.7 mg/dl (0.2-1.0); Calcium 9.1 mg/dl (8.6-10.3); Est GFR (African American) 66.1 ml/min; Globulin 1.9 gm/dl (2.5-4.0); Potassium 3.2 mmol/L (3.5-5.1); Total Protein 6.2 gm/dl (6.0-8.3)
[2023-06-01] MEDS: CEROVITE ADV FORMULA TAB PO SCH (08:25)
[2023-06-01] MEDS: CHOLECALCIFEROL 1,000 UNITS 25 MCG TAB PO SCH (08:25)
[2023-06-01] MEDS: CALCITRIOL 0.25 MCG CAPSULE PO SCH ×2 (08:25→21:07)
[2023-06-01] MEDS: CALCIUM CARBONATE 1250MG TAB PO SCH ×2 (08:25→21:07)
[2023-06-01] MEDS: CETIRIZINE HCL 10 MG TABLET PO SCH (08:25)
[2023-06-01] MEDS: VIBEGRON 75 MG TAB PO SCH (08:25)
[2023-06-01] MEDS: PANTOprazole 40 MG TAB PO SCH ×2 (08:25→21:07)
[2023-06-01] MEDS: CYANOCOBALAMIN (B-12) 500 MCG TABLET PO SCH (08:28)
[2023-06-01] MEDS: FLUTICASONE PROPIONATE NA SPR 16 GM BTL PRN (08:29)
[2023-06-01] MEDS: FLUTICASONE FUROATE 100MCG 14 PUFFS/INHALER INH SCH (08:29)
[2023-06-01] MEDS: UMECLIDINIUM/VILANTEROL 62.5/25MCG 7 PUFFS/INHALER INH SCH (08:29)
[2023-06-01] MEDS: ESCITALOPRAM OXALATE 20 MG TAB PO SCH (08:29)
--- NOTE | 2023-06-01 09:20 | Hospitalist Progress Note ---
Date of Service June 01, 2023 Assessment & Plan (1) Hypotension: Plan: Chest Pain/Myoclonic jerks Possible pneumonitis- was started on empiric Unasyn, continue Notably on 2LPM via NC For myoclonic jerks, EEG was unremarkable Cont with duloxetine titration stopping lexapro and desipramine. Hypotension Orthostasis symptoms likely resulting in fall. Per cardiology, pacemaker functioning well and no significant arrhythmias contributing to this episode. possible contribution from autonomic dysfunction. Multiple home neuropsychotropic medications contributory to fall predisposition. De-escalated this as noted above. stop midodrine anemia, normocytic -likely multifactorial given chronic illness/inflammation and frequent phlebotomy -iron panel in am -dropped 3 grams Hb since admission, no active bleeding -repeat H/H in am Heart failure, diastolic chronic diastolic heart failure (EF 55 to 60%, TTE 2022), equivocal volume status, compensated med rec not confirmed on admission prior records indicate that she should be taking torsemide 20mg PO BID will restart this once daily at this time given recent hypotension. leg rash-there appears to have been some kind of allergic reaction, improved on steroid cream and with benadrryl and time. it is not clear what she may have been reacting to this seems to be improving with supportive care hx gastric bypass chronic pain/neuropathy-stable Hypothyroidism, chronic, euthyroid, cont current Synthroid per home regimen. hypokalemia secondary to diuretic Rx, BMP daily. Hyperglycemia rule out DM, history of pancreatic insufficiency/malabsorption as per records Possible functional disability given recurrent admissions/compliance issues PT OT eval DVT prophylaxis. Lovenox subcu Full code I spent a total of 60minutes coordinating, documenting, and providing care for this patient excluding time spent in the performance of separately billed services Dee Mccullough DO [facility] Hospitalist (2) Syncope: (3) Anemia: Admission and Anticipated Discharge Date Admission Date: May 29, 2023 Subjective 72 yo F admitted for syncope in setting of hypotension feeling well today per primary RN she is much better than yesterday denies issues with breathing or pain reports itching in her lower legs and there is blistering present on the dorsal toes. per primary RN this also appears improved. stopping midodrine now with BP into the 130s systolic adjusting mood medications per psychiatry recommendations and patient is in agreement with this. Physical Exam Physical Exam: CONSTITUTIONAL: WNWD, vitals as above, generally well-appearing, NAD EYES: normal conjunctivae, no scleral icterus, bespectacled ENT: external ear and nose normal NECK: trachea midline RESPIRATORY: clear to auscultation bilaterally, no crackles, rales or wheezes, normal respiratory effort CARDIOVASCULAR: regular rate and rhythm, S1 and 2 heard without murmurs, gallops or rubs, no JVD, no peripheral edema CHEST: inspection of chest was normal GASTROINTESTINAL: soft, nontender, ND, no guarding MUSCULOSKELETAL: generalized weakness without focality, head is normocephalic and atraumatic, SKIN: warm and dry, +erythematous continuous papular nonblanching rash on distal legs bilaterally. There is some associated blistering on the proximal 2- 3 toes on the right foot NEUROLOGIC: CN 2-12 grossly intact, no sensory deficit, normal cognition, normal speech, no tremor PSYCHIATRIC: alert cooperative and oriented to person, place and time. Euthymic mood, makes good eye contact, language grossly intact, recent and remote memory grossly intact. Results & Data Results & Data Vital Signs (Past 12 Hours) Vital Signs Temp Pulse Pulse Resp BP BP Pulse Ox 06/01/23 07:32 36.6 C 65 18 123/76 97 06/01/23 07:35 06/01/23 06:55 65 06/01/23 03:30 36.7 C 69 18 126/74 93 05/31/23 23:00 66 05/31/23 23:27 36.6 C 64 18 115/71 96 O2 Del Method O2 Flow Rate 06/01/23 07:32 Nasal Cannula 2 06/01/23 07:35 Nasal Cannula 2 06/01/23 06:55 06/01/23 03:30 Nasal Cannula 2 05/31/23 23:00 05/31/23 23:27 Nasal Cannula 2 Laboratory Results Short CBC 06/01/23 Range/Units 06:18 WBC 5.31 (4.8-10.8) K/ul Hgb 9.4 L (12.0-16.0) g/dl Hct 29.6 L (37.0-47.0) % Plt Count 163 (130-400) K/uL BMP 06/01/23 06:18 Sodium 147 H Potassium 3.2 L Chloride 107 Carbon Dioxide 33 H BUN 35 H Creatinine 1.00 Glucose 92 Calcium 9.1 Liver Function 06/01/23 Range/Units 06:18 Total Bilirubin 0.7 (0.2-1.0) mg/dl AST 14 (13-39) U/L ALT 15 (7-52) U/L Alkaline Phosphatase 46 (34-104) U/L Albumin 4.3 (3.4-5.0) gm/dl Medications Administered Current Inpatient Medications Acetaminophen (Acetaminophen 325 Mg Tab) 650 mg PO Q6H PRN PRN Reason: Fever/Pain Stop: 06/28/23 23:37 Last Admin: 06/01/23 02:04 Dose: 650 mg Lipase/Protease/Amylase (Pancreaze (Lipase 16,800u) Cap) 5 cap PO TIDM CATE Stop: 06/29/23 17:59 Last Admin: 06/01/23 07:38 Dose: 5 cap Calcitriol (Calcitriol 0.25 Mcg Capsule) 0.5 mcg PO BID CATE Stop: 06/29/23 08:59 Last Admin: 06/01/23 08:25 Dose: 0.5 mcg Calcium Carbonate (Calcium Carbonate 1250mg Tab) 1,250 mg PO BID CATE Stop: 06/29/23 08:59 Last Admin: 06/01/23 08:25 Dose: 1,250 mg Cetirizine HCl (Cetirizine Hcl 10 Mg Tablet) 10 mg PO DAILY CATE Stop: 06/29/23 08:59 Last Admin: 06/01/23 08:25 Dose: 10 mg Cyanocobalamin (Cyanocobalamin (B-12) 500 Mcg Tablet) 1,000 mcg PO DAILY CATE Stop: 06/29/23 08:59 Last Admin: 06/01/23 08:28 Dose: 1,000 mcg Desipramine HCl (Desipramine Hcl 50 Mg Tab) 50 mg PO TID CATE Stop: 06/29/23 08:59 Last Admin: 05/30/23 22:13 Dose: Not Given Duloxetine HCl (Duloxetine Hcl 30 Mg Cap) 30 mg PO HS CATE Stop: 06/29/23 20:59 Last Admin: 05/30/23 22:13 Dose: Not Given Enoxaparin Sodium (Enoxaparin Inj 40 Mg/0.4 Ml Syr) 40 mg SQ QPM@1800 CATE Stop: 06/29/23 17:59 Last Admin: 08/27/23 17:25 Dose: 40 mg Escitalopram Oxalate (Escitalopram Oxalate 20 Mg Tab) 20 mg PO QAM CATE Stop: 06/29/23 08:59 Last Admin: 06/01/23 08:29 Dose: 20 mg Fluticasone Furoate (Fluticasone Furoate 100mcg 14 Puffs/Inhaler) 1 puffs INH DAILY CATE Stop: 06/29/23 08:59 Last Admin: 06/01/23 08:29 Dose: 1 puffs Fluticasone Propionate (Fluticasone Propionate Na Spr 16 Gm Btl) 1 sprays NA DAILY PRN PRN Reason: Congestion Stop: 06/29/23 07:29 Last Admin: 06/01/23 08:29 Dose: 1 sprays Heparin Sodium (Porcine) (Heparin 100 Unit/Ml 5ml Flush) 5 ml FLUSH PRN PRN PRN Reason: Flush Stop: 06/29/23 12:33 Albumin Human (Albumin 25%) 25 gm in 100 mls @ 50 mls/hr IV Q8H CATE Stop: 06/02/23 07:59 Last Admin: 06/01/23 07:31 Dose: 50 mls/hr Ampicillin Sodium/Sulbactam Sodium 3,000 mg/ Sodium Chloride 108 mls @ 200 mls/hr IV Q6H CATE; Protocol Stop: 06/06/23 20:59 Last Admin: 06/01/23 08:20 Dose: 200 mls/hr Lactobacillus Acidophilus (Advanced Probiotic 1250 Mg Capsule) 2 cap PO QPM CATE Stop: 06/29/23 20:59 Last Admin: 05/31/23 21:23 Dose: 2 cap Lamotrigine (Lamotrigine 25 Mg Tab) 25 mg PO BID CATE Stop: 06/29/23 08:59 Last Admin: 05/30/23 22:13 Dose: Not Given Levothyroxine Sodium (Levothyroxine Sodium 88 Mcg Tablet) 88 mcg PO DAILYBB CATE Stop: 06/30/23 06:29 Last Admin: 06/01/23 06:16 Dose: 88 mcg Lorazepam (Lorazepam 0.5 Mg Tab) 0.25 mg PO BID PRN PRN Reason: Anxiety Stop: 06/29/23 07:31 Midodrine (Midodrine Hcl 2.5 Mg Tab) 2.5 mg PO TID@0800,1200,1700 CATE Stop: 06/29/23 07:59 Last Admin: 06/01/23 07:40 Dose: 2.5 mg Miscellaneous (Colesevelam [Welchol] 625 Mg ~ Order Awaiting Action) 1 each N/A QS CATE Stop: 06/29/23 07:59 Last Admin: 06/01/23 00:00 Dose: Not Given Montelukast Sodium (Montelukast Sodium 10 Mg Tablet) 10 mg PO HS CATE Stop: 06/29/23 20:59 Last Admin: 05/31/23 21:24 Dose: 10 mg Multivitamins/Minerals (Cerovite Adv Formula Tab) 1 tab PO DAILY CATE Stop: 06/29/23 08:59 Last Admin: 06/01/23 08:25 Dose: 1 tab Ondansetron HCl (Ondansetron Inj 2 Mg/Ml 2 Ml Vial) 4 mg IV Q4H PRN PRN Reason: Nausea Stop: 06/28/23 23:38 Oxycodone HCl (Oxycodone Hcl Ir 5 Mg Tab (Immediate Release)) 5 mg PO Q4H PRN PRN Reason: Pain Stop: 06/12/23 23:37 Last Admin: 05/30/23 11:38 Dose: 5 mg Pantoprazole Sodium (Pantoprazole 40 Mg Tab) 40 mg PO BID [facility] Stop: 06/29/23 08:59 Last Admin: 06/01/23 08:25 Dose: 40 mg Pregabalin (Pregabalin 100 Mg Cap) 100 mg PO TID CATE Stop: 06/29/23 08:59 Last Admin: 05/30/23 21:51 Dose: Not Given Risperidone (Risperidone 2 Mg Tablet) 2 mg PO HS [facility] Stop: 06/29/23 20:59 Last Admin: 05/30/23 22:13 Dose: Not Given Ropinirole HCl (Ropinirole Hcl 0.25 Mg Tablet) 0.5 mg PO HS [facility] Stop: 06/29/23 20:59 Last Admin: 05/30/23 21:52 Dose: Not Given Triamcinolone Acetonide (Triamcinolone Acet 0.1% Cr 80 Gm Tube) 1 appln EXT Q6H PRN PRN Reason: itching Stop: 06/30/23 12:47 Last Admin: 06/01/23 04:08 Dose: 1 appln Umeclidinium/Vilanterol (Umeclidinium/Vilanterol 62.5/25mcg 7 Puffs/Inhaler) 1 puffs INH DAILY [facility] Stop: 06/29/23 08:59 Last Admin: 06/01/23 08:29 Dose: 1 puffs Vibegron (Vibegron 75 Mg Tab) 75 mg PO QAM [facility] Stop: 06/29/23 08:59 Last Admin: 06/01/23 08:25 Dose: 75 mg Vitamin D (Cholecalciferol 1,000 Units 25 Mcg Tab) 1,000 units PO QAM [facility] Stop: 06/29/23 08:59 Last Admin: 06/01/23 08:25 Dose: 1,000 units
[2023-06-01] MEDS ORDERED: POTASSIUM CHLORIDE CRTAB 20 MEQ TABCR PO SCH (09:30)
[2023-06-01] MEDS: POTASSIUM CHLORIDE PWD 20 MEQ PACK PO SCH ×2 (14:48→21:07)
[2023-06-01] MEDS ORDERED: diphenhydrAMINE Capsule 25 MG CAP PO ONE (15:24)
--- NOTE | 2023-06-01 15:38 | Electroencephalogram ---
EEG Procedure Note Date of Service June 01, 2023 Start / End Times Start Time: 845 End Time: [address] Castaneda History 72-year-old with history of involuntary movements, question seizure activity Home Medication List Medication Instructions Recorded Confirmed Type colesevelam 625 mg tablet (WelChol) 625 mg PO TID 06/17/18 05/30/23 History montelukast 10 mg tablet 10 mg PO HS 06/17/18 05/30/23 History (Singulair) ipratropium 0.5 mg-albuterol 3 mg 3 ml inhalation Q4H PRN Shortness 05/05/19 05/30/23 History (2.5 mg base)/3 mL nebulization Of Breath Or Wheezing soln gjrmco-mqcukxii-zhyryit 4 cap PO TID 05/05/19 05/30/23 History 24,000-76,000-120,000 unit capsule,delayed rel (Creon) omeprazole magnesium 20 mg 20 mg PO BID 05/17/19 05/30/23 History tablet,delayed release (Prilosec OTC) risperidone 2 mg tablet 2 mg PO HS 02/27/21 05/30/23 History desipramine 50 mg tablet 50 mg PO TID 01/23/22 05/30/23 History lorazepam 0.5 mg tablet 0.5 mg PO BID PRN Anxiety 11/06/22 05/24/23 History cholecalciferol (vitamin D3) 25 50 mcg PO QAM 11/15/22 05/30/23 History mcg (1,000 unit) capsule (Vitamin D3) escitalopram oxalate 20 mg tablet 20 mg PO QAM 11/15/22 05/30/23 History metolazone 2.5 mg tablet 2.5 mg PO WK 11/15/22 05/30/23 History oxycodone-acetaminophen 5 mg-325 1 tab PO Q6H PRN Pain 11/15/22 05/30/23 History mg tablet (Percocet) ropinirole 0.5 mg tablet 0.5 mg PO HS 11/15/22 05/30/23 History valacyclovir 500 mg tablet 500 mg PO QAM 11/15/22 05/30/23 History calcitriol 0.5 mcg capsule 0.5 mcg PO BID #60 caps 12/21/22 05/30/23 Rx qxhkwgfn-gbj-pvbuy acid 0.4 1 tab PO DAILY 12/31/22 05/30/23 History mg-lycopene 300 mcg-lutein 250 mcg tablet (Cerovite Senior) albuterol sulfate 90 mcg/actuation 2 inh inhalation Q6H PRN Shortness 02/03/23 05/30/23 Rx breath activated powder inhaler Of Breath Or Wheezing #1 ea duloxetine 30 mg capsule,delayed 30 mg PO HS 04/17/23 05/30/23 History release vibegron 75 mg tablet (Gemtesa) 75 mg PO QAM 04/17/23 05/30/23 History pregabalin 100 mg capsule 100 mg PO TID 30 days #90 caps 04/21/23 05/30/23 Rx fluticasone propionate 50 1 spray intranasal DAILY PRN 05/20/23 05/30/23 History mcg/actuation nasal Congestion spray,suspension levothyroxine 88 mcg tablet 88 mcg PO QAM #30 tabs 05/21/23 05/30/23 Rx Lactobacil.acidophilus-Bifido.animalis 2 cap PO QPM 05/24/23 05/30/23 History 5 billion cell sprinkle capsule (Probiotic) calcium carbonate 600 mg calcium 1,200 mg PO BID 05/24/23 05/30/23 History (1,500 mg) tablet (Calcium) cyanocobalamin (vitamin B-12) 1,000 mcg PO DAILY 05/24/23 05/30/23 History 1,000 mcg tablet (Vitamin B-12) epinephrine 0.3 mg/0.3 mL 0.3 mg IM DIRECTED PRN Allergic 05/24/23 05/30/23 History injection, auto-injector (EpiPen) Reaction fluticasone fur. 100 mcg-umeclid 1 inh inhalation QAM 05/24/23 05/30/23 History 62.5 mcg-vilant 25 mcg inhalat.powder (Trelegy Ellipta) lamotrigine 25 mg tablet (Lamictal) 25 mg PO BID 05/24/23 05/30/23 History nitroglycerin 0.4 mg sublingual 0.4 mg sublingual DIRECTED PRN 05/24/23 05/30/23 History tablet (Nitrostat) Chest Pain diphenhydramine HCl 25 mg capsule 25 mg PO QID PRN itching 5 days 05/27/23 05/30/23 Rx (Benadryl) #14 caps cetirizine 10 mg tablet 10 mg PO DAILY 05/29/23 05/29/23 History potassium chloride 20 mEq 20 meq PO QID 05/30/23 05/30/23 History tablet,extended release Inpatient Medication List Acetaminophen (Acetaminophen 325 Mg Tab) 650 mg PO Q6H PRN PRN Reason: Fever/Pain Stop: 06/28/23 23:37 Last Admin: 06/01/23 02:04 Dose: 650 mg Documented By: [facility] Admin: 05/31/23 14:25 Dose: 650 mg Documented By: [facility] Admin: 05/31/23 05:52 Dose: 650 mg Documented By: [facility] Admin: 05/30/23 20:12 Dose: 650 mg Documented By: [facility] Lipase/Protease/Amylase (Pancreaze (Lipase 16,800u) Cap) 5 cap PO TIDM [facility] Stop: 06/29/23 17:59 Last Admin: 06/01/23 11:41 Dose: 5 cap Documented By: [facility] Admin: 06/01/23 07:38 Dose: 5 cap Documented By: [facility] Admin: 05/31/23 16:20 Dose: 5 cap Documented By: [facility] Admin: 05/31/23 12:11 Dose: 5 cap Documented By: [facility] Admin: 05/31/23 07:42 Dose: 5 cap Documented By: [facility] Admin: 05/30/23 20:21 Dose: 5 cap Documented By: [facility] Calcitriol (Calcitriol 0.25 Mcg Capsule) 0.5 mcg PO BID [facility] Stop: 06/29/23 08:59 Last Admin: 06/01/23 08:25 Dose: 0.5 mcg Documented By: [facility] Admin: 05/31/23 21:23 Dose: 0.5 mcg Documented By: [facility] Admin: 05/31/23 08:36 Dose: 0.5 mcg Documented By: [facility] Admin: 05/30/23 21:48 Dose: 0.5 mcg Documented By: [facility] Admin: 05/30/23 09:10 Dose: 0.5 mcg Documented By: [facility] Calcium Carbonate (Calcium Carbonate 1250mg Tab) 1,250 mg PO BID [facility] Stop: 06/29/23 08:59 Last Admin: 06/01/23 08:25 Dose: 1,250 mg Documented By: [facility] Admin: 08/27/23 21:23 Dose: 1,250 mg Documented By: [facility] Admin: 05/31/23 08:36 Dose: 1,250 mg Documented By: [facility] Admin: 05/30/23 21:48 Dose: 1,250 mg Documented By: [facility] Admin: 05/30/23 09:11 Dose: 1,250 mg Documented By: PORTILLO Cetirizine HCl (Cetirizine Hcl 10 Mg Tablet) 10 mg PO DAILY CATE Stop: 06/29/23 08:59 Last Admin: 06/01/23 08:25 Dose: 10 mg Documented By: [facility] Admin: 05/31/23 08:35 Dose: 10 mg Documented By: [facility] Admin: 05/30/23 09:10 Dose: 10 mg Documented By: PORTILLO Cyanocobalamin (Cyanocobalamin (B-12) 500 Mcg Tablet) 1,000 mcg PO DAILY CATE Stop: 06/29/23 08:59 Last Admin: 06/01/23 08:28 Dose: 1,000 mcg Documented By: [facility] Admin: 05/31/23 08:38 Dose: 1,000 mcg Documented By: [facility] Admin: 05/30/23 09:11 Dose: 1,000 mcg Documented By: PORTILLO Desipramine HCl (Desipramine Hcl 50 Mg Tab) 50 mg PO TID CATE Stop: 06/29/23 08:59 Last Admin: 05/30/23 22:13 Dose: Not Given Documented By: [facility] Admin: 05/30/23 13:34 Dose: 50 mg Documented By: [facility] Admin: 05/30/23 09:12 Dose: 50 mg Documented By: PORTILLO Duloxetine HCl (Duloxetine Hcl 30 Mg Cap) 30 mg PO HS CATE Stop: 06/29/23 20:59 Last Admin: 05/30/23 22:13 Dose: Not Given Documented By: [facility] Enoxaparin Sodium (Enoxaparin Inj 40 Mg/0.4 Ml Syr) 40 mg SQ QPM@1800 CATE Stop: 06/29/23 17:59 Last Admin: 05/31/23 17:25 Dose: 40 mg Documented By: [facility] Admin: 05/30/23 17:46 Dose: 40 mg Documented By: PORTILLO Escitalopram Oxalate (Escitalopram Oxalate 20 Mg Tab) 20 mg PO QAM CATE Stop: 06/29/23 08:59 Last Admin: 06/01/23 08:29 Dose: 20 mg Documented By: [facility] Admin: 05/31/23 08:39 Dose: 20 mg Documented By: Admin: 05/30/23 09:12 Dose: 20 mg Documented By: PORTILLO Fluticasone Furoate (Fluticasone Furoate 100mcg 14 Puffs/Inhaler) 1 puffs INH DAILY CATE Stop: 06/29/23 08:59 Last Admin: 06/01/23 08:29 Dose: 1 puffs Documented By: Admin: 05/31/23 08:37 Dose: 1 puffs Documented By: Admin: 05/30/23 09:09 Dose: 1 puffs Documented By: PORTILLO Fluticasone Propionate (Fluticasone Propionate Na Spr 16 Gm Btl) 1 sprays NA DAILY PRN PRN Reason: Congestion Stop: 06/29/23 07:29 Last Admin: 06/01/23 08:29 Dose: 1 sprays Documented By: Admin: 05/31/23 08:36 Dose: 1 sprays Documented By: PORTILLO Albumin Human (Albumin 25%) 25 gm in 100 mls @ 50 mls/hr IV Q8H CATE Stop: 06/02/23 07:59 Last Infusion: 06/01/23 09:37 Dose: 0 mls/hr Documented By: Admin: 06/01/23 07:31 Dose: 50 mls/hr Documented By: Infusion: 06/01/23 02:16 Dose: 0 mls/hr Documented By: [facility] Admin: 06/01/23 00:16 Dose: 50 mls/hr Documented By: Infusion: 05/31/23 17:43 Dose: 0 mls/hr Documented By: Admin: 05/31/23 15:41 Dose: 50 mls/hr Documented By: Infusion: 05/31/23 09:19 Dose: 0 mls/hr Documented By: Admin: 05/31/23 07:33 Dose: 50 mls/hr Documented By: Infusion: 05/31/23 02:50 Dose: 0 mls/hr Documented By: Admin: 05/31/23 00:50 Dose: 50 mls/hr Documented By: Infusion: 05/30/23 18:06 Dose: 0 mls/hr Documented By: Admin: 05/30/23 16:04 Dose: 50 mls/hr Documented By: Infusion: 05/30/23 10:07 Dose: 0 mls/hr Documented By: [facility] Admin: 05/30/23 08:23 Dose: 50 mls/hr Documented By: LAF Ampicillin Sodium/Sulbactam Sodium 3,000 mg/ Sodium Chloride 108 mls @ 200 mls/hr IV Q6H [facility]; Protocol Stop: 06/06/23 20:59 Last Admin: 06/01/23 14:48 Dose: 200 mls/hr Documented By: Infusion: 06/01/23 09:37 Dose: 0 mls/hr Documented By: Admin: 06/01/23 08:20 Dose: 200 mls/hr Documented By: Infusion: 06/01/23 04:30 Dose: 0 mls/hr Documented By: [facility] Admin: 06/01/23 03:57 Dose: 200 mls/hr Documented By: Infusion: 05/31/23 21:54 Dose: 0 mls/hr Documented By: [facility] Admin: 05/31/23 21:21 Dose: 200 mls/hr Documented By: Infusion: 05/31/23 15:41 Dose: 0 mls/hr Documented By: [facility] Admin: 05/31/23 14:26 Dose: 200 mls/hr Documented By: [facility] Infusion: 05/31/23 09:18 Dose: 0 mls/hr Documented By: [facility] Admin: 05/31/23 08:32 Dose: 200 mls/hr Documented By: Infusion: 05/31/23 03:25 Dose: 0 mls/hr Documented By: [facility] Admin: 05/31/23 02:52 Dose: 200 mls/hr Documented By: Infusion: 05/30/23 22:19 Dose: 0 mls/hr Documented By: Admin: 05/30/23 21:46 Dose: 200 mls/hr Documented By: [facility] Lactobacillus Acidophilus (Advanced Probiotic 1250 Mg Capsule) 2 cap PO QPM [facility] Stop: 06/29/23 20:59 Last Admin: 05/31/23 21:23 Dose: 2 cap Documented By: Admin: 05/30/23 21:50 Dose: 2 cap Documented By: SRS Lamotrigine (Lamotrigine 25 Mg Tab) 25 mg PO BID [facility] Stop: 06/29/23 08:59 Last Admin: 05/30/23 22:13 Dose: Not Given Documented By: [facility] Admin: 05/30/23 09:12 Dose: 25 mg Documented By: [facility] Levothyroxine Sodium (Levothyroxine Sodium 88 Mcg Tablet) 88 mcg PO DAILYBB [facility] Stop: 06/30/23 06:29 Last Admin: 06/01/23 06:16 Dose: 88 mcg Documented By: [facility] Admin: 05/31/23 05:52 Dose: 88 mcg Documented By: [facility] Midodrine (Midodrine Hcl 2.5 Mg Tab) 2.5 mg PO TID@0800,1200,1700 [facility] Stop: 06/29/23 07:59 Last Admin: 06/01/23 11:42 Dose: 2.5 mg Documented By: [facility] Admin: 06/01/23 07:40 Dose: 2.5 mg Documented By: [facility] Admin: 05/31/23 16:19 Dose: 2.5 mg Documented By: [facility] Admin: 05/31/23 12:11 Dose: 2.5 mg Documented By: [facility] Admin: 05/31/23 07:42 Dose: 2.5 mg Documented By: [facility] Admin: 05/30/23 16:10 Dose: 2.5 mg Documented By: [facility] Admin: 05/30/23 13:35 Dose: 2.5 mg Documented By: [facility] Admin: 05/30/23 10:09 Dose: 2.5 mg Documented By: [facility] Miscellaneous (Colesevelam [Welchol] 625 Mg ~ Order Awaiting Action) 1 each N/A QS [facility] Stop: 06/29/23 07:59 Last Admin: 06/01/23 09:38 Dose: Not Given Documented By: [facility] Admin: 06/01/23 00:00 Dose: Not Given Documented By: [facility] Admin: 05/31/23 16:21 Dose: Not Given Documented By: [facility] Admin: 05/31/23 13:51 Dose: Not Given Documented By: [facility] Admin: 05/31/23 00:04 Dose: Not Given Documented By: [facility] Admin: 05/30/23 17:47 Dose: Not Given Documented By: [facility] Admin: 05/30/23 10:10 Dose: Not Given Documented By: [facility] Montelukast Sodium (Montelukast Sodium 10 Mg Tablet) 10 mg PO HS [facility] Stop: 06/29/23 20:59 Last Admin: 08/27/23 21:24 Dose: 10 mg Documented By: [facility] Admin: 05/30/23 21:51 Dose: 10 mg Documented By: DI Multivitamins/Minerals (Cerovite Adv Formula Tab) 1 tab PO DAILY CATE Stop: 06/29/23 08:59 Last Admin: 06/01/23 08:25 Dose: 1 tab Documented By: Admin: 05/31/23 08:35 Dose: 1 tab Documented By: Admin: 05/30/23 09:12 Dose: 1 tab Documented By: PORTILLO Oxycodone HCl (Oxycodone Hcl Ir 5 Mg Tab (Immediate Release)) 5 mg PO Q4H PRN PRN Reason: Pain Stop: 06/12/23 23:37 Last Admin: 05/30/23 11:38 Dose: 5 mg Documented By: PORTILLO Pantoprazole Sodium (Pantoprazole 40 Mg Tab) 40 mg PO BID CATE Stop: 06/29/23 08:59 Last Admin: 06/01/23 08:25 Dose: 40 mg Documented By: Admin: 05/31/23 21:23 Dose: 40 mg Documented By: [facility] Admin: 05/31/23 08:35 Dose: 40 mg Documented By: [facility] Admin: 05/30/23 21:51 Dose: 40 mg Documented By: [facility] Admin: 05/30/23 09:12 Dose: 40 mg Documented By: PORTILLO Potassium Chloride (Potassium Chloride Pwd 20 Meq Pack) 40 meq PO Q6H CATE Stop: 06/01/23 20:31 Last Admin: 06/01/23 14:48 Dose: 40 meq Documented By: PORTILLO Pregabalin (Pregabalin 100 Mg Cap) 100 mg PO TID CATE Stop: 06/29/23 08:59 Last Admin: 05/30/23 21:51 Dose: Not Given Documented By: [facility] Admin: 05/30/23 13:36 Dose: 100 mg Documented By: [facility] Admin: 05/30/23 10:12 Dose: 100 mg Documented By: PORTILLO Risperidone (Risperidone 2 Mg Tablet) 2 mg PO HS CATE Stop: 06/29/23 20:59 Last Admin: 05/30/23 22:13 Dose: Not Given Documented By: DI Ropinirole HCl (Ropinirole Hcl 0.25 Mg Tablet) 0.5 mg PO [facility] Stop: 06/29/23 20:59 Last Admin: 05/30/23 21:52 Dose: Not Given Documented By: DI Triamcinolone Acetonide (Triamcinolone Acet 0.1% Cr 80 Gm Tube) 1 appln EXT Q6H PRN PRN Reason: itching Stop: 06/30/23 12:47 Last Admin: 06/01/23 04:08 Dose: 1 appln Documented By: Admin: 05/31/23 13:48 Dose: 1 appln Documented By: PORTILLO Umeclidinium/Vilanterol (Umeclidinium/Vilanterol 62.5/25mcg 7 Puffs/Inhaler) 1 puffs INH DAILY [facility] Stop: 06/29/23 08:59 Last Admin: 06/01/23 08:29 Dose: 1 puffs Documented By: Admin: 05/31/23 08:37 Dose: 1 puffs Documented By: Admin: 05/30/23 09:09 Dose: 1 puffs Documented By: PORTILLO Vibegron (Vibegron 75 Mg Tab) 75 mg PO QAM [facility] Stop: 06/29/23 08:59 Last Admin: 06/01/23 08:25 Dose: 75 mg Documented By: Admin: 05/31/23 08:38 Dose: 75 mg Documented By: Admin: 05/30/23 09:13 Dose: 75 mg Documented By: PORTILLO Vitamin D (Cholecalciferol 1,000 Units 25 Mcg Tab) 1,000 units PO QAM [facility] Stop: 06/29/23 08:59 Last Admin: 06/01/23 08:25 Dose: 1,000 units Documented By: Admin: 05/31/23 08:35 Dose: 1,000 units Documented By: Admin: 05/30/23 09:11 Dose: 1,000 units Documented By: PORTILLO Discontinued Medications Albuterol (Albut/Ipratrop 3mg/0.5mg Neb 3 Ml Vial) 3 ml NEB NOW STA; Protocol Stop: 05/30/23 19:45 Last Admin: 05/30/23 20:07 Dose: 3 ml Documented By: BOBBY Enoxaparin Sodium (Enoxaparin Inj 40 Mg/0.4 Ml Syr) 40 mg SQ QAM [facility] Stop: 06/29/23 08:59 Last Admin: 05/30/23 12:22 Dose: Not Given Documented By: PORTILLO Hydromorphone HCl (Hydromorphone Inj 0.5 Mg/0.5 Ml Syr) 0.5 mg IV NOW STA Stop: 05/29/23 19:12 Last Admin: 05/29/23 19:45 Dose: 0.5 mg Documented By: PHILLIP Albumin Human (Albumin 25%) 25 gm in 100 mls @ 50 mls/hr IV ONE STA Stop: 05/30/23 01:09 Last Infusion: 05/30/23 02:09 Dose: 0 mls/hr Documented By: Admin: 05/30/23 00:04 Dose: 50 mls/hr Documented By: MELVINA Sodium Chloride (Nss 1000ml) 1,000 mls @ 80 mls/hr IV .[id number] CATE Stop: 05/31/23 20:29 Last Infusion: 05/31/23 20:34 Dose: 0 mls/hr Documented By: Admin: 05/31/23 08:04 Dose: 80 mls/hr Documented By: POTRILLO Midodrine (Midodrine Hcl 2.5 Mg Tab) 2.5 mg PO NOW STA Stop: 05/29/23 23:09 Last Admin: 05/30/23 00:04 Dose: 2.5 mg Documented By: MELVINA Ondansetron HCl (Ondansetron Inj 2 Mg/Ml 2 Ml Vial) 4 mg IV NOW STA Stop: 05/29/23 19:12 Last Admin: 05/29/23 19:45 Dose: 4 mg Documented By: PHILLIP Potassium Chloride (Potassium Chloride Crtab 20 Meq Tabcr) 40 meq PO NOW STA Stop: 05/29/23 22:00 Last Admin: 05/30/23 00:15 Dose: Not Given Documented By: MELVINA Potassium Chloride (Potassium Chloride Pwd 20 Meq Pack) 40 meq PO NOW STA Stop: 05/30/23 19:51 Last Admin: 05/30/23 21:47 Dose: Not Given Documented By: DI Potassium Chloride (Potassium Chloride Crtab 20 Meq Tabcr) 40 meq PO NOW STA Stop: 05/30/23 20:29 Last Admin: 05/30/23 20:55 Dose: 40 meq Documented By: DI Potassium Chloride (Potassium Chloride Crtab 20 Meq Tabcr) 40 meq PO ONE ONE Stop: 05/30/23 22:01 Last Admin: 05/30/23 22:23 Dose: 40 meq Documented By: DI Potassium Chloride (Potassium Chloride Crtab 20 Meq Tabcr) 40 meq PO Q6H CATE Stop: 06/01/23 15:31 Last Admin: 06/01/23 09:43 Dose: 40 meq Documented By: PORTILLO Description This is a 21 electrode EEG with a single channel dedicated to limited EKG. The electrodes were placed in accordance with the International 10-20 system. Interpretation The predominant background activity consists of a very well modulated 7-8 Hz activity, of up to 60 mV in amplitude,seen symmetrically distributed over the posterior head regions bilaterally. This activity attenuates nicely with eye- opening and other alerting procedures. Photic stimulation was performed and elicited no change in the background activity and no abnormal responses were seen. Hyperventilation was not performed. A mild amount of muscle and movement artifact activity contaminated the recording and did not hinder interpretation to any significant degree. Throughout the waking portion of the recording, no focal abnormalities, abnormal slow activity, or potentially epileptogenic discharges are seen. The patient entered the drowsy state and brief periods of stage II sleep with no further activation. In summary, this EEG was essentially normal during wakefulness and sleep. No focal abnormalities, potentially epileptogenic discharges, or abnormal slow activity was seen. Clinical Correlation The abscence of potentially epileptogenic activity does not exclude a seizure disorder, since interictally, EEGs can be normal. Clinical correlation is required. [facility] EEG Procedure Codes Indication for Procedure (1) Syncope: (2) Myoclonic jerking: Neurology Neurology: [id number] EEG include record awake & sleepy
[2023-06-01] MEDS: ENOXAPARIN INJ 40 MG/0.4 ML SYR SQ SCH (17:29)
[2023-06-01] MEDS: diphenhydrAMINE Capsule 25 MG CAP PO PRN (21:07)
[2023-06-01] MEDS: MONTELUKAST SODIUM 10 MG TABLET PO SCH (21:07)
[2023-06-01] MEDS: ADVANCED PROBIOTIC 1250 MG CAPSULE PO SCH (21:08)
[2023-06-02] MEDS: AMPICILLIN/SULBACTAM SOD 3,000 MG in 0.9 % SODIUM CHLORIDE 100 ML IV SCH ×2 (04:07→08:40)
[2023-06-02] MEDS: LEVOTHYROXINE SODIUM 88 MCG TABLET PO SCH (05:40)
[2023-06-02 06:01] LABS: Basophils # (auto) 0.06 K/uL (0.00-0.20); Basophils % (auto) 0.8 %; Eosinophils # (auto) 0.47 K/uL (0.00-0.50); Eosinophils % (auto) 6.6 %; Hematocrit (blood only) 31.5 % (37.0-47.0); Hemoglobin 10.2 g/dl (12.0-16.0); Immature Granulocytes # (auto) 0.03 K/uL (0.01-0.20); Immature Granulocytes % (auto) 0.4 %; Lymphocytes # (auto) 0.92 K/uL (1.20-3.40); Mean Corpuscular Hemoglobin 28.7 pg (25.0-34.0); Mean Corpuscular Hgb Conc 32.4 g/dL (32.0-36.0); Mean Corpuscular Volume 88.5 fL (80.0-100.0); Mean Platelet Volume 10.1 fL (9.4-12.4); Monocytes # (auto) 0.69 K/uL (0.11-0.59); Monocytes % (auto) 9.7 %; Neutrophils # (auto) 4.91 K/uL (1.40-6.50); Neutrophils % (auto) 69.5 %; Platelet Count 174 K/uL (130-400); RDW Coefficient of Variation 16.4 % (11.5-14.5); RDW Standard Deviation 53.3 fL (36.4-46.3); Red Blood Count 3.56 M/uL (4.20-5.40); White Blood Count 7.08 K/ul (4.8-10.8)
[2023-06-02 06:12] LABS: Calcium 9.6 mg/dl (8.6-10.3); Creatinine Clr Calc Pharmacy 60.6 ml/min; Est GFR (African American) 86.6 ml/min; Est GFR (Non-African American) 74.7 ml/min; Magnesium 1.9 mg/dl (1.7-2.4); Potassium 3.8 mmol/L (3.5-5.1)
[2023-06-02] MEDS: PANCREAZE (LIPASE 16,800U) CAP PO SCH ×3 (08:35→16:40)
[2023-06-02] MEDS: CHOLECALCIFEROL 1,000 UNITS 25 MCG TAB PO SCH (08:36)
[2023-06-02] MEDS: CEROVITE ADV FORMULA TAB PO SCH (08:36)
[2023-06-02] MEDS: CALCITRIOL 0.25 MCG CAPSULE PO SCH ×2 (08:36→20:16)
[2023-06-02] MEDS: CYANOCOBALAMIN (B-12) 500 MCG TABLET PO SCH (08:36)
[2023-06-02] MEDS: PANTOprazole 40 MG TAB PO SCH ×2 (08:37→20:16)
[2023-06-02] MEDS: FLUTICASONE PROPIONATE NA SPR 16 GM BTL PRN (08:37)
[2023-06-02] MEDS: VIBEGRON 75 MG TAB PO SCH (08:37)
[2023-06-02] MEDS: UMECLIDINIUM/VILANTEROL 62.5/25MCG 7 PUFFS/INHALER INH SCH (08:37)
[2023-06-02] MEDS: FLUTICASONE FUROATE 100MCG 14 PUFFS/INHALER INH SCH (08:37)
[2023-06-02] MEDS: CETIRIZINE HCL 10 MG TABLET PO SCH (08:47)
[2023-06-02] MEDS: CALCIUM CARBONATE 1250MG TAB PO SCH ×2 (08:47→20:16)
[2023-06-02] MEDS: PREGABALIN 100 MG CAP PO SCH ×3 (08:50→20:23)
[2023-06-02] MEDS ORDERED: DULoxetine HCL 30 MG CAP PO SCH (09:00)
--- NOTE | 2023-06-02 10:15 | Hospitalist Progress Note ---
Date of Service June 02, 2023 Assessment & Plan (1) Syncope: (2) Hypotension: Plan: Chest Pain/Myoclonic jerks Possible pneumonitis- was started on empiric Unasyn, transitioned to augmentin this am, however, patient declines any further abx given diarrhea. oxygenating well on room air. For myoclonic jerks, EEG was unremarkable and these have resolved. Cont with duloxetine titration stopped lexapro and desipramine. Syncope 2/2 Hypotension-multifactorial Orthostasis symptoms likely resulting in fall. Per cardiology, pacemaker functioning well and no significant arrhythmias contributing to this episode. possible contribution from autonomic dysfunction. Multiple home neuropsychotropic medications contributory to fall predisposition. De-escalated this as noted above. stopped midodrine, BP stable. anemia, normocytic -likely multifactorial given chronic illness/inflammation and frequent phlebotomy -iron panel reflects iron deficiency -dropped 3 grams Hb since admission, no active bleeding -started iron -outpatient record review shows colonoscopy Heart failure, diastolic chronic diastolic heart failure (EF 55 to 60%, TTE 2022), equivocal volume status, compensated med rec not confirmed on admission prior records indicate that she should be taking torsemide 20mg PO BID will restart this closer to discharge. leg rash-there appears to have been some kind of allergic reaction, improved on steroid cream and with Benadryl and time. it is not clear what she may have been reacting to this seems to be improving with supportive care hx gastric bypass-may require outpatient EGD, followup with PCP regarding new progressive iron deficiency anemia. chronic pain/neuropathy-stable Hypothyroidism, chronic, euthyroid, cont current Synthroid per home regimen. hypokalemia secondary to diuretic Rx, BMP daily. Hyperglycemia rule out DM, history of pancreatic insufficiency/malabsorption as per records Possible functional disability given recurrent admissions/compliance issues PT OT eval DVT prophylaxis. Lovenox subcu Full code I spent a total of 60minutes coordinating, documenting, and providing care for this patient excluding time spent in the performance of separately billed services Dee Mccullough DO [facility] Hospitalist (3) Anemia: Admission and Anticipated Discharge Date Admission Date: May 29, 2023 Subjective 72 yo F admitted for syncope in setting of hypotension feeling well today denies issues with breathing or pain +diarrhea is a problem and she requests the antibiotics to stop (given Augmentin this am) Denies cough or any known issues with aspiration. Na 150 today and she reports feeling thirsty She is almost tearful when declining rehab which has been recommended, states that her sister just real estate broker her wrist today but that she has other friends who will help her at home. Physical Exam Physical Exam: CONSTITUTIONAL: WNWD, vitals as above, generally well-appearing, NAD EYES: normal conjunctivae, no scleral icterus, bespectacled ENT: external ear and nose normal NECK: trachea midline RESPIRATORY: clear to auscultation bilaterally, + crackles at baseline, rales or wheezes, normal respiratory effort CARDIOVASCULAR: regular rate and rhythm, S1 and 2 heard without murmurs, gallops or rubs, no JVD, no peripheral edema CHEST: inspection of chest was normal GASTROINTESTINAL: soft, nontender, ND, no guarding MUSCULOSKELETAL: generalized weakness without focality, head is normocephalic and atraumatic, SKIN: warm and dry, NEUROLOGIC: CN 2-12 grossly intact, no sensory deficit, normal cognition, normal speech, no tremor PSYCHIATRIC: alert cooperative and oriented to person, place and time. Euthymic mood, makes good eye contact, language grossly intact, recent and remote memory grossly intact. Results & Data Results & Data Vital Signs (Past 12 Hours) Vital Signs Temp Pulse Pulse Resp BP BP Pulse Ox 06/02/23 07:34 36.8 C 67 19 145/77 H 95 06/02/23 07:11 74 06/02/23 04:10 36.9 C 73 16 130/74 99 06/01/23 23:00 79 06/01/23 23:37 37.1 C 76 18 124/75 95 O2 Del Method O2 Flow Rate 06/02/23 07:34 Nasal Cannula 2 06/02/23 07:11 06/02/23 04:10 Nasal Cannula 2.0 06/01/23 23:00 06/01/23 23:37 Nasal Cannula 2.0 Laboratory Results Short CBC 06/02/23 Range/Units 05:36 WBC 7.08 (4.8-10.8) K/ul Hgb 10.2 L (12.0-16.0) g/dl Hct 31.5 L (37.0-47.0) % Plt Count 174 (130-400) K/uL BMP 06/02/23 05:36 Sodium 150 H Potassium 3.8 Chloride 110 H Carbon Dioxide 31 BUN 24 H Creatinine 0.80 Glucose 98 Calcium 9.6 Medications Administered Current Inpatient Medications Acetaminophen (Acetaminophen 325 Mg Tab) 650 mg PO Q6H PRN PRN Reason: Fever/Pain Stop: 06/28/23 23:37 Last Admin: 06/01/23 02:04 Dose: 650 mg Lipase/Protease/Amylase (Pancreaze (Lipase 16,800u) Cap) 5 cap PO TIDM CATE Stop: 06/29/23 17:59 Last Admin: 06/02/23 08:35 Dose: 5 cap Calcitriol (Calcitriol 0.25 Mcg Capsule) 0.5 mcg PO BID CATE Stop: 06/29/23 08:59 Last Admin: 06/02/23 08:36 Dose: 0.5 mcg Calcium Carbonate (Calcium Carbonate 1250mg Tab) 1,250 mg PO BID CATE Stop: 06/29/23 08:59 Last Admin: 06/02/23 08:47 Dose: 1,250 mg Cetirizine HCl (Cetirizine Hcl 10 Mg Tablet) 10 mg PO DAILY CATE Stop: 06/29/23 08:59 Last Admin: 06/02/23 08:47 Dose: 10 mg Cyanocobalamin (Cyanocobalamin (B-12) 500 Mcg Tablet) 1,000 mcg PO DAILY CATE Stop: 06/29/23 08:59 Last Admin: 06/02/23 08:36 Dose: 1,000 mcg Diphenhydramine HCl (Diphenhydramine Capsule 25 Mg Cap) 25 mg PO Q6H PRN PRN Reason: itching Stop: 07/01/23 15:23 Last Admin: 06/01/23 21:07 Dose: 25 mg Duloxetine HCl (Duloxetine Hcl 20 Mg Cap) 40 mg PO QAM CATE Stop: 06/05/23 09:01 Duloxetine HCl (Duloxetine Hcl 60 Mg Cap) 60 mg PO QAM [facility]ATE Stop: 07/06/23 08:59 Enoxaparin Sodium (Enoxaparin Inj 40 Mg/0.4 Ml Syr) 40 mg SQ QPM@1800 CATE Stop: 06/29/23 17:59 Last Admin: 06/01/23 17:29 Dose: 40 mg Fluticasone Furoate (Fluticasone Furoate 100mcg 14 Puffs/Inhaler) 1 puffs INH DAILY CATE Stop: 06/29/23 08:59 Last Admin: 06/02/23 08:37 Dose: 1 puffs Fluticasone Propionate (Fluticasone Propionate Na Spr 16 Gm Btl) 1 sprays NA DAILY PRN PRN Reason: Congestion Stop: 06/29/23 07:29 Last Admin: 06/02/23 08:37 Dose: 1 sprays Heparin Sodium (Porcine) (Heparin 100 Unit/Ml 5ml Flush) 5 ml FLUSH PRN PRN PRN Reason: Flush Stop: 06/29/23 12:33 Ampicillin Sodium/Sulbactam Sodium 3,000 mg/ Sodium Chloride 108 mls @ 200 mls/hr IV Q6H CATE; Protocol Stop: 06/06/23 20:59 Last Admin: 06/02/23 08:40 Dose: 200 mls/hr Lactobacillus Acidophilus (Advanced Probiotic 1250 Mg Capsule) 2 cap PO QPM CATE Stop: 06/29/23 20:59 Last Admin: 06/01/23 21:08 Dose: 2 cap Lamotrigine (Lamotrigine 25 Mg Tab) 25 mg PO BID CATE Stop: 06/29/23 08:59 Last Admin: 05/30/23 22:13 Dose: Not Given Levothyroxine Sodium (Levothyroxine Sodium 88 Mcg Tablet) 88 mcg PO DAILYBB CATE Stop: 06/30/23 06:29 Last Admin: 06/02/23 05:40 Dose: 88 mcg Lorazepam (Lorazepam 0.5 Mg Tab) 0.25 mg PO BID PRN PRN Reason: Anxiety Stop: 06/29/23 07:31 Montelukast Sodium (Montelukast Sodium 10 Mg Tablet) 10 mg PO HS CATE Stop: 06/29/23 20:59 Last Admin: 06/01/23 21:07 Dose: 10 mg Multivitamins/Minerals (Cerovite Adv Formula Tab) 1 tab PO DAILY CATE Stop: 06/29/23 08:59 Last Admin: 06/02/23 08:36 Dose: 1 tab Ondansetron HCl (Ondansetron Inj 2 Mg/Ml 2 Ml Vial) 4 mg IV Q4H PRN PRN Reason: Nausea Stop: 06/28/23 23:38 Oxycodone HCl (Oxycodone Hcl Ir 5 Mg Tab (Immediate Release)) 5 mg PO Q4H PRN PRN Reason: Pain Stop: 06/12/23 23:37 Last Admin: 05/30/23 11:38 Dose: 5 mg Pantoprazole Sodium (Pantoprazole 40 Mg Tab) 40 mg PO BID [facility] Stop: 06/29/23 08:59 Last Admin: 06/02/23 08:37 Dose: 40 mg Pregabalin (Pregabalin 100 Mg Cap) 100 mg PO TID CATE Stop: 06/29/23 08:59 Last Admin: 06/02/23 08:50 Dose: 100 mg Risperidone (Risperidone 2 Mg Tablet) 2 mg PO [facility] Stop: 06/29/23 20:59 Last Admin: 05/30/23 22:13 Dose: Not Given Ropinirole HCl (Ropinirole Hcl 0.25 Mg Tablet) 0.5 mg PO HS [facility] Stop: 06/29/23 20:59 Last Admin: 05/30/23 21:52 Dose: Not Given Triamcinolone Acetonide (Triamcinolone Acet 0.1% Cr 80 Gm Tube) 1 appln EXT Q6H PRN PRN Reason: itching Stop: 06/30/23 12:47 Last Admin: 06/01/23 21:13 Dose: 1 appln Umeclidinium/Vilanterol (Umeclidinium/Vilanterol 62.5/25mcg 7 Puffs/Inhaler) 1 puffs INH DAILY [facility] Stop: 06/29/23 08:59 Last Admin: 06/02/23 08:37 Dose: 1 puffs Vibegron (Vibegron 75 Mg Tab) 75 mg PO QAM [facility] Stop: 06/29/23 08:59 Last Admin: 06/02/23 08:37 Dose: 75 mg Vitamin D (Cholecalciferol 1,000 Units 25 Mcg Tab) 1,000 units PO QAM [facility] Stop: 06/29/23 08:59 Last Admin: 06/02/23 08:36 Dose: 1,000 units
[2023-06-02] MEDS: FERROUS SULFATE 325 MG TAB PO SCH ×2 (11:35→16:41)
[2023-06-02] MEDS: DEXTROSE 5% 1,000 ML IV SCH ×2 (11:35→17:31)
[2023-06-02] MEDS: ENOXAPARIN INJ 40 MG/0.4 ML SYR SQ SCH (17:30)
[2023-06-02] MEDS: diphenhydrAMINE Capsule 25 MG CAP PO PRN (17:30)
[2023-06-02 18:52] LABS: BUN Creatinine Ratio 28.4 (10-20); Calcium 9.7 mg/dl (8.6-10.3); Creatinine Clr Calc Pharmacy 65.5 ml/min; Est GFR (African American) 95.1 ml/min; Est GFR (Non-African American) 82.1 ml/min; Potassium 3.3 mmol/L (3.5-5.1)
[2023-06-02] MEDS: rOPINIRole HCL 0.25 MG TABLET PO SCH (20:16)
[2023-06-02] MEDS: MONTELUKAST SODIUM 10 MG TABLET PO SCH (20:16)
[2023-06-02] MEDS: ADVANCED PROBIOTIC 1250 MG CAPSULE PO SCH (20:16)
[2023-06-02] MEDS: TRIAMCINOLONE ACET 0.1% CR 80 GM TUBE EXT PRN (20:24)
[2023-06-02] MEDS ORDERED: AMOXICILLIN 875 MG TAB PO SCH (21:00)
[2023-06-02] MEDS: lamoTRIgine 25 MG TAB PO SCH (22:20)
[2023-06-03] MEDS: LEVOTHYROXINE SODIUM 88 MCG TABLET PO SCH (06:27)
[2023-06-03 08:10] LABS: Hematocrit (blood only) 32.9 % (37.0-47.0); Hemoglobin 10.9 g/dl (12.0-16.0); Mean Corpuscular Hemoglobin 29.1 pg (25.0-34.0); Mean Corpuscular Hgb Conc 33.1 g/dL (32.0-36.0); Mean Platelet Volume 10.4 fL (9.4-12.4); Platelet Count 192 K/uL (130-400); RDW Coefficient of Variation 16.4 % (11.5-14.5); RDW Standard Deviation 52.5 fL (36.4-46.3); Red Blood Count 3.74 M/uL (4.20-5.40); White Blood Count 8.43 K/ul (4.8-10.8)
[2023-06-03] MEDS: PANTOprazole 40 MG TAB PO SCH ×2 (08:42→20:42)
[2023-06-03] MEDS: CYANOCOBALAMIN (B-12) 500 MCG TABLET PO SCH (08:42)
[2023-06-03] MEDS: CETIRIZINE HCL 10 MG TABLET PO SCH (08:42)
[2023-06-03] MEDS: FERROUS SULFATE 325 MG TAB PO SCH ×3 (08:42→17:50)
[2023-06-03] MEDS: CALCIUM CARBONATE 1250MG TAB PO SCH ×2 (08:42→20:42)
[2023-06-03] MEDS: DULoxetine HCL 20 MG CAP PO SCH (08:42)
[2023-06-03] MEDS: CALCITRIOL 0.25 MCG CAPSULE PO SCH ×2 (08:42→20:43)
[2023-06-03] MEDS: PANCREAZE (LIPASE 16,800U) CAP PO SCH ×3 (08:43→17:50)
[2023-06-03] MEDS: VIBEGRON 75 MG TAB PO SCH (08:43)
[2023-06-03] MEDS: CHOLECALCIFEROL 1,000 UNITS 25 MCG TAB PO SCH (08:43)
[2023-06-03] MEDS: FLUTICASONE FUROATE 100MCG 14 PUFFS/INHALER INH SCH (08:43)
[2023-06-03] MEDS: CEROVITE ADV FORMULA TAB PO SCH (08:43)
[2023-06-03] MEDS: UMECLIDINIUM/VILANTEROL 62.5/25MCG 7 PUFFS/INHALER INH SCH (08:44)
[2023-06-03] MEDS: lamoTRIgine 25 MG TAB PO SCH ×2 (08:56→20:42)
[2023-06-03] MEDS: PREGABALIN 100 MG CAP PO SCH ×3 (08:56→20:45)
--- NOTE | 2023-06-03 09:50 | Hospitalist Progress Note ---
Date of Service June 03, 2023 Assessment & Plan (1) Syncope: (2) Hypotension: Plan: Chest Pain/Myoclonic jerks Possible pneumonitis- was started on empiric Unasyn, transitioned to augmentin this am, however, patient declines any further abx given diarrhea. oxygenating well on room air. For myoclonic jerks, EEG was unremarkable and these have resolved. Cont with duloxetine titration stopped lexapro and desipramine. Syncope 2/2 Hypotension-multifactorial Orthostasis symptoms likely resulting in fall. Per cardiology, pacemaker functioning well and no significant arrhythmias contributing to this episode. possible contribution from autonomic dysfunction. Multiple home neuropsychotropic medications contributory to fall predisposition. De-escalated this as noted above. stopped midodrine, BP stable. anemia, normocytic -likely multifactorial given chronic illness/inflammation and frequent phlebotomy -iron panel reflects iron deficiency -dropped 3 grams Hb since admission, no active bleeding -started iron -outpatient record review shows colonoscopy -H&H has improved Heart failure, diastolic chronic diastolic heart failure (EF 55 to 60%, TTE 2022), equivocal volume status, compensated med rec not confirmed on admission prior records indicate that she should be taking torsemide 20mg PO BID will restart this closer to discharge. leg rash-there appears to have been some kind of allergic reaction, improved on steroid cream and with Benadryl and time. it is not clear what she may have been reacting to this seems to be improving with supportive care hx gastric bypass-may require outpatient EGD, followup with PCP regarding new progressive iron deficiency anemia. chronic pain/neuropathy-stable Hypothyroidism, chronic, euthyroid, cont current Synthroid per home regimen. hypokalemia secondary to diuretic Rx, BMP daily. Hyperglycemia rule out DM, history of pancreatic insufficiency/malabsorption as per records Possible functional disability given recurrent admissions/compliance issues PT OT eval DVT prophylaxis. Lovenox subcu Full code I spent a total of 60minutes coordinating, documenting, and providing care for this patient excluding time spent in the performance of separately billed se rvDO Kathy Siu Hospitalist (3) Anemia: Admission and Anticipated Discharge Date Admission Date: May 29, 2023 Subjective 72 yo F admitted for syncope in setting of hypotension feeling well today denies issues with breathing or pain Diarrhea improved, rash improved. Sodium has been corrected Physical Exam Physical Exam: CONSTITUTIONAL: WNWD, vitals as above, generally well-appearing, NAD EYES: normal conjunctivae, no scleral icterus, bespectacled ENT: external ear and nose normal NECK: trachea midline RESPIRATORY: clear to auscultation bilaterally, + crackles at baseline, rales or wheezes, normal respiratory effort CARDIOVASCULAR: regular rate and rhythm, S1 and 2 heard without murmurs, gallops or rubs, no JVD, no peripheral edema CHEST: inspection of chest was normal GASTROINTESTINAL: soft, nontender, ND, no guarding MUSCULOSKELETAL: generalized weakness without focality, head is normocephalic and atraumatic, SKIN: warm and dry, NEUROLOGIC: CN 2-12 grossly intact, no sensory deficit, normal cognition, normal speech, no tremor PSYCHIATRIC: alert cooperative and oriented to person, place and time. Euthymic mood, makes good eye contact, language grossly intact, recent and remote memory grossly intact. Results & Data Results & Data Vital Signs (Past 12 Hours) Vital Signs Temp Pulse Pulse Resp BP Pulse Ox O2 Del Method 06/03/23 07:22 36.8 C 78 19 133/79 92 Room Air 06/03/23 07:32 77 06/02/23 23:00 66 06/03/23 02:50 37.2 C 72 20 131/72 91 Room Air 06/02/23 23:00 36.7 C 69 18 138/74 92 Room Air Laboratory Results Short CBC 06/03/23 Range/Units 07:15 WBC 8.43 (4.8-10.8) K/ul Hgb 10.9 L (12.0-16.0) g/dl Hct 32.9 L (37.0-47.0) % Plt Count 192 (130-400) K/uL BMP 06/03/23 07:17 Sodium 142 Potassium 3.3 L Chloride 106 Carbon Dioxide 29 BUN 17 Creatinine 0.74 Glucose 127 H Calcium 9.7 Medications Administered Current Inpatient Medications Acetaminophen (Acetaminophen 325 Mg Tab) 650 mg PO Q6H PRN PRN Reason: Fever/Pain Stop: 06/28/23 23:37 Last Admin: 06/01/23 02:04 Dose: 650 mg Lipase/Protease/Amylase (Pancreaze (Lipase 16,800u) Cap) 5 cap PO TIDM CATE Stop: 06/29/23 17:59 Last Admin: 06/03/23 17:50 Dose: 5 cap Calcitriol (Calcitriol 0.25 Mcg Capsule) 0.5 mcg PO BID CATE Stop: 06/29/23 08:59 Last Admin: 06/03/23 08:42 Dose: 0.5 mcg Calcium Carbonate (Calcium Carbonate 1250mg Tab) 1,250 mg PO BID CATE Stop: 06/29/23 08:59 Last Admin: 06/03/23 08:42 Dose: 1,250 mg Cetirizine HCl (Cetirizine Hcl 10 Mg Tablet) 10 mg PO DAILY CATE Stop: 06/29/23 08:59 Last Admin: 06/03/23 08:42 Dose: 10 mg Cyanocobalamin (Cyanocobalamin (B-12) 500 Mcg Tablet) 1,000 mcg PO DAILY CATE Stop: 06/29/23 08:59 Last Admin: 06/03/23 08:42 Dose: 1,000 mcg Diphenhydramine HCl (Diphenhydramine Capsule 25 Mg Cap) 25 mg PO Q6H PRN PRN Reason: itching Stop: 07/01/23 15:23 Last Admin: 06/02/23 17:30 Dose: 25 mg Duloxetine HCl (Duloxetine Hcl 20 Mg Cap) 40 mg PO QAM [facility] Stop: 06/05/23 09:01 Last Admin: 06/03/23 08:42 Dose: 40 mg Duloxetine HCl (Duloxetine Hcl 60 Mg Cap) 60 mg PO QAM [facility] Stop: 07/06/23 08:59 Enoxaparin Sodium (Enoxaparin Inj 40 Mg/0.4 Ml Syr) 40 mg SQ QPM@1800 [facility]ATE Stop: 06/29/23 17:59 Last Admin: 06/03/23 17:50 Dose: 40 mg Ferrous Sulfate (Ferrous Sulfate 325 Mg Tab) 325 mg PO TIDM [facility]ATE Stop: 07/02/23 11:59 Last Admin: 06/03/23 17:50 Dose: 325 mg Fluticasone Furoate (Fluticasone Furoate 100mcg 14 Puffs/Inhaler) 1 puffs INH DAILY [facility] Stop: 06/29/23 08:59 Last Admin: 06/03/23 08:43 Dose: 1 puffs Fluticasone Propionate (Fluticasone Propionate Na Spr 16 Gm Btl) 1 sprays NA DAILY PRN PRN Reason: Congestion Stop: 06/29/23 07:29 Last Admin: 06/02/23 08:37 Dose: 1 sprays Heparin Sodium (Porcine) (Heparin 100 Unit/Ml 5ml Flush) 5 ml FLUSH PRN PRN PRN Reason: Flush Stop: 06/29/23 12:33 Lactobacillus Acidophilus (Advanced Probiotic 1250 Mg Capsule) 2 cap PO QPM [facility] Stop: 06/29/23 20:59 Last Admin: 06/02/23 20:16 Dose: 2 cap Lamotrigine (Lamotrigine 25 Mg Tab) 25 mg PO BID [facility] Stop: 06/29/23 08:59 Last Admin: 06/03/23 08:56 Dose: 25 mg Levothyroxine Sodium (Levothyroxine Sodium 88 Mcg Tablet) 88 mcg PO DAILYBB CATE Stop: 06/30/23 06:29 Last Admin: 06/03/23 06:27 Dose: 88 mcg Lorazepam (Lorazepam 0.5 Mg Tab) 0.25 mg PO BID PRN PRN Reason: Anxiety Stop: 06/29/23 07:31 Montelukast Sodium (Montelukast Sodium 10 Mg Tablet) 10 mg PO HS [facility] Stop: 06/29/23 20:59 Last Admin: 06/02/23 20:16 Dose: 10 mg Multivitamins/Minerals (Cerovite Adv Formula Tab) 1 tab PO DAILY [facility]ATE Stop: 06/29/23 08:59 Last Admin: 06/03/23 08:43 Dose: 1 tab Ondansetron HCl (Ondansetron Inj 2 Mg/Ml 2 Ml Vial) 4 mg IV Q4H PRN PRN Reason: Nausea Stop: 06/28/23 23:38 Oxycodone HCl (Oxycodone Hcl Ir 5 Mg Tab (Immediate Release)) 5 mg PO Q4H PRN PRN Reason: Pain Stop: 06/12/23 23:37 Last Admin: 05/30/23 11:38 Dose: 5 mg Pantoprazole Sodium (Pantoprazole 40 Mg Tab) 40 mg PO BID [facility] Stop: 06/29/23 08:59 Last Admin: 06/03/23 08:42 Dose: 40 mg Pregabalin (Pregabalin 100 Mg Cap) 100 mg PO TID [facility] Stop: 06/29/23 08:59 Last Admin: 06/03/23 13:49 Dose: 100 mg Risperidone (Risperidone 2 Mg Tablet) 2 mg PO HS [facility] Stop: 06/29/23 20:59 Last Admin: 05/30/23 22:13 Dose: Not Given Ropinirole HCl (Ropinirole Hcl 0.25 Mg Tablet) 0.5 mg PO HS [facility] Stop: 06/29/23 20:59 Last Admin: 06/02/23 20:16 Dose: 0.5 mg Triamcinolone Acetonide (Triamcinolone Acet 0.1% Cr 80 Gm Tube) 1 appln EXT Q6H PRN PRN Reason: itching Stop: 06/30/23 12:47 Last Admin: 06/02/23 20:24 Dose: 1 appln Umeclidinium/Vilanterol (Umeclidinium/Vilanterol 62.5/25mcg 7 Puffs/Inhaler) 1 puffs INH DAILY [facility] Stop: 06/29/23 08:59 Last Admin: 06/03/23 08:44 Dose: 1 puffs Vibegron (Vibegron 75 Mg Tab) 75 mg PO QAM [facility] Stop: 06/29/23 08:59 Last Admin: 06/03/23 08:43 Dose: 75 mg Vitamin D (Cholecalciferol 1,000 Units 25 Mcg Tab) 1,000 units PO QAM [facility] Stop: 06/29/23 08:59 Last Admin: 06/03/23 08:43 Dose: 1,000 units
[2023-06-03 11:11] LABS: Calcium 9.7 mg/dl (8.6-10.3); Creatinine Clr Calc Pharmacy 66.8 ml/min; Est GFR (African American) 95.1 ml/min; Est GFR (Non-African American) 82.1 ml/min; Potassium 3.3 mmol/L (3.5-5.1)
[2023-06-03] MEDS: POTASSIUM CHLORIDE PWD 20 MEQ PACK PO SCH ×2 (11:49→17:51)
[2023-06-03] MEDS: ENOXAPARIN INJ 40 MG/0.4 ML SYR SQ SCH (17:50)
[2023-06-03] MEDS: rOPINIRole HCL 0.25 MG TABLET PO SCH (20:42)
[2023-06-03] MEDS: ADVANCED PROBIOTIC 1250 MG CAPSULE PO SCH (20:43)
[2023-06-03] MEDS: MONTELUKAST SODIUM 10 MG TABLET PO SCH (20:43)
[2023-06-03] MEDS: diphenhydrAMINE Capsule 25 MG CAP PO PRN (20:45)
[2023-06-03] MEDS ORDERED: LOPERAMIDE HCL 2 MG CAP PO STA (23:33)
[2023-06-04] MEDS: LEVOTHYROXINE SODIUM 88 MCG TABLET PO SCH (05:37)
[2023-06-04 06:25] LABS: Hematocrit (blood only) 33.7 % (37.0-47.0); Hemoglobin 10.8 g/dl (12.0-16.0); Mean Corpuscular Hemoglobin 28.3 pg (25.0-34.0); Mean Corpuscular Volume 88.2 fL (80.0-100.0); Mean Platelet Volume 10.2 fL (9.4-12.4); Platelet Count 197 K/uL (130-400); RDW Coefficient of Variation 16.6 % (11.5-14.5); Red Blood Count 3.82 M/uL (4.20-5.40); White Blood Count 6.31 K/ul (4.8-10.8)
[2023-06-04] MEDS: diphenhydrAMINE Capsule 25 MG CAP PO PRN (06:31)
[2023-06-04 06:56] LABS: BUN Creatinine Ratio 25.3 (10-20); Calcium 9.6 mg/dl (8.6-10.3); Creatinine Clr Calc Pharmacy 65.9 ml/min; Est GFR (African American) 93.6 ml/min; Est GFR (Non-African American) 80.8 ml/min; Potassium 4.2 mmol/L (3.5-5.1)
[2023-06-04] MEDS: CYANOCOBALAMIN (B-12) 500 MCG TABLET PO SCH (08:19)
[2023-06-04] MEDS: CEROVITE ADV FORMULA TAB PO SCH (08:19)
[2023-06-04] MEDS: VIBEGRON 75 MG TAB PO SCH (08:19)
[2023-06-04] MEDS: FERROUS SULFATE 325 MG TAB PO SCH ×2 (08:19→11:18)
[2023-06-04] MEDS: CALCIUM CARBONATE 1250MG TAB PO SCH (08:19)
[2023-06-04] MEDS: PANCREAZE (LIPASE 16,800U) CAP PO SCH ×2 (08:20→11:17)
[2023-06-04] MEDS: CETIRIZINE HCL 10 MG TABLET PO SCH (08:20)
[2023-06-04] MEDS: CALCITRIOL 0.25 MCG CAPSULE PO SCH (08:20)
[2023-06-04] MEDS: PANTOprazole 40 MG TAB PO SCH (08:20)
[2023-06-04] MEDS: DULoxetine HCL 20 MG CAP PO SCH (08:21)
[2023-06-04] MEDS: lamoTRIgine 25 MG TAB PO SCH (08:21)
[2023-06-04] MEDS: FLUTICASONE FUROATE 100MCG 14 PUFFS/INHALER INH SCH (08:21)
[2023-06-04] MEDS: UMECLIDINIUM/VILANTEROL 62.5/25MCG 7 PUFFS/INHALER INH SCH (08:22)
[2023-06-04] MEDS: CHOLECALCIFEROL 1,000 UNITS 25 MCG TAB PO SCH (08:26)
[2023-06-04] MEDS: PREGABALIN 100 MG CAP PO SCH ×2 (08:28→14:50)
--- NOTE | 2023-06-04 15:11 | Discharge Summary ---
Discharge Summary Date of Service June 04, 2023 Notes For Next Care Provider Syncopal episode likely multifactorial with orthostasis symptoms likely resulting in fall. Multiple home neuropsychotropic medications contributory to fall predisposition- Lexapro and desipramine discontinued Medication Changes From Visit Duloxetine titration to 60mg daily, Lexapro and desipramine have been discontinued. Iron supplementation TIDM, resume torsemide at 20mg daily, benadryl PRN for contact dermatitis Admission HPI Per Admitting Provider History obtained from patient and records. Limited history from patient secondary to lethargic state. Medical history significant for chronic diastolic heart failure (EF 55 to 60%, TTE 2022), sinus node dysfunction sp PPM, asthma/ILD, LARRY (BiPAP noncompliance), pulmonary hypertension, history of gastric bypass, hyperparathyroidism as per records, hypothyroidism, ankylosing spondylitis as per records, chronic anemia ( baseline hemoglobin of 11), recurrent UTIs (ESBL E. coli infection), urolithiasis, history pancreatic insufficiency/malabsorption as per records, mood/anxiety disorder, chronic pain/neuropathy. Two [facility] admissions this month. 05/20-05/22 for frequent falls and UTI. 05/24- 05/26 for hyperkalemia, ARF. Kidney function normal on discharge. Patient told to decrease home diuretic dose on discharge. Increased fluid retention, leg swelling at home as per patient without chest pain, SOB. PCP recommended some diuretic changes today. Patient lightheadedness, feeling funny on getting up. Subsequent fall without headache, head trauma, LOC. No chest pain, no SOB. Achy mid back pain post fall. Patient brought to the ER for evaluation. SBP 90s upon EMS arrival at patient's home. IV Dilaudid administered at the ER. 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 Admission Exam Per Admitting Provider GENERAL: Lethargic, obese, no respiratory distress SKIN: Normal color, warm HEENT: pink palpebral conjunctivae, no ptosis, dry buccal mucosa NECK : Supple, short, no tenderness CHEST : Decreased breath sounds, no tenderness BACK : Mid back tenderness HEART : Bradycardic, systolic murmur ABDOMEN: Some distention, no tenderness EXTREMITIES : Bilateral LE swelling, no LE tenderness NEUROLOGIC : Lethargic, no facial asymmetry, gait and stance not assessed Principal Dx & Hospital Course #1 = Principal Diagnosis (1) Syncope: (2) Hypotension: This is a 72yo F with PMH of chronic diastolic heart failure (EF 55 to 60%, TTE 2022), sinus node dysfunction sp PPM, asthma/ILD, LARRY (BiPAP noncompliance), pulmonary hypertension, history of gastric bypass, hyperparathyroidism as per records, hypothyroidism, ankylosing spondylitis as per records, chronic anemia (baseline hemoglobin of 11), recurrent UTIs (ESBL E. coli infection), urolithiasis, history pancreatic insufficiency/malabsorption as per records, mood/anxiety disorder, chronic pain/neuropathy who presents after syncopal episode. Syncopal episode likely multifactorial with orthostasis symptoms likely resulting in fall. Per cardiology, pacemaker functioning well and no significant arrhythmias contributing to this episode. Possible contribution from autonomic dysfunction. Multiple home neuropsychotropic medications contributory to fall predisposition- Lexapro and desipramine discontinued per psychiatry recommendations. Uptitrating duloxetine to 60mg daily with outpatient psych followup. No longer requiring midodrine, BP stable. Diuretics were held during admission given hypotension but euvolemic and will resume at decreased dose of 20mg torsemide daily at time of discharge. PCP to follow up and uptitrate as appropriate. Found to have possible pneumonitis on admission and was started on empiric Unasyn and transitioned to Augmentin, however, patient declines any further abx given chronic diarrhea. Noted to have myoclonic jerks during admission, but EEG was unremarkable and th christian have resolved. Found to have 3gm hemoglobin drop during admission thought to be multifactorial given chronic illness/inflammation and frequent phlebotomy. Iron panel reflects iron deficiency and was started on TIDM iron supplementation. H&H has improved. Will need outpatient follow-up with CBC for further monitoring. Noted to have a leg rash during admission that has improved, now with only excoriation noted. Likely contact dermatitis as patient has had previously from hospital sheets. Continue PRN benadryl and steroid cream at time of discharge, PCP follow up. Lastly, h/o chronic diarrhea given history of gastric bypass. TCA discontinued that may have offered some off label antidiarrheal effects, with increased frequency of episodes during admission. Improved today with PRN imodium, continue PRN Welchol, probiotic. May require GI follow up if diarrhea persists. Patient comfortable and hemodynamically stable at time of discharge home. (3) Anemia: (4) Myoclonic jerking: (5) Recurrent major depression in remission: (6) Hypokalemia: (7) Pancreatic insufficiency: (8) Chronic diastolic (congestive) heart failure: (9) Hypothyroidism: Discharge Exam Gen: WD/WN, NAD, lying in bed, A&Ox3 HEENT: Normocephalic, atraumatic, conjunctivae moist, sclerae anicteric, mucous membranes moist Lung: + crackles at baseline, no rales or wheezes, normal respiratory effort Heart: Regular rate, regular rhythm, no murmurs, rubs, or gallops Abdomen: Soft, NT, ND +BS x 4 Extremities: no edema Skin: Warm, no rash Updated Medication List Medication Instructions Recorded Confirmed Type colesevelam 625 mg tablet (WelChol) 625 mg PO TID 06/17/18 05/30/23 History montelukast 10 mg tablet 10 mg PO HS 06/17/18 05/30/23 History (Singulair) ipratropium 0.5 mg-albuterol 3 mg 3 ml inhalation Q4H PRN Shortness 05/05/19 05/30/23 History (2.5 mg base)/3 mL nebulization Of Breath Or Wheezing soln nwiaqw-diqnvfrr-hzejdyx 4 cap PO TID 05/05/19 05/30/23 History 24,000-76,000-120,000 unit capsule,delayed rel (Creon) omeprazole magnesium 20 mg 20 mg PO BID 05/17/19 05/30/23 History tablet,delayed release (Prilosec OTC) risperidone 2 mg tablet 2 mg PO HS 02/27/21 05/30/23 History lorazepam 0.5 mg tablet 0.5 mg PO BID PRN Anxiety 11/06/22 05/24/23 History cholecalciferol (vitamin D3) 25 50 mcg PO QAM 11/15/22 05/30/23 History mcg (1,000 unit) capsule (Vitamin D3) metolazone 2.5 mg tablet 2.5 mg PO WK 11/15/22 05/30/23 History oxycodone-acetaminophen 5 mg-325 1 tab PO Q6H PRN Pain 11/15/22 05/30/23 History mg tablet (Percocet) ropinirole 0.5 mg tablet 0.5 mg PO HS 11/15/22 05/30/23 History valacyclovir 500 mg tablet 500 mg PO QAM 11/15/22 05/30/23 History calcitriol 0.5 mcg capsule 0.5 mcg PO BID #60 caps 12/21/22 05/30/23 Rx svokjbws-zdn-knvfi acid 0.4 1 tab PO DAILY 12/31/22 05/30/23 History mg-lycopene 300 mcg-lutein 250 mcg tablet (Cerovite Senior) albuterol sulfate 90 mcg/actuation 2 inh inhalation Q6H PRN Shortness 02/03/23 05/30/23 Rx breath activated powder inhaler Of Breath Or Wheezing #1 ea vibegron 75 mg tablet (Gemtesa) 75 mg PO QAM 04/17/23 05/30/23 History pregabalin 100 mg capsule 100 mg PO TID 30 days #90 caps 04/21/23 05/30/23 Rx fluticasone propionate 50 1 spray intranasal DAILY PRN 05/20/23 05/30/23 History mcg/actuation nasal Congestion spray,suspension levothyroxine 88 mcg tablet 88 mcg PO QAM #30 tabs 05/21/23 05/30/23 Rx Lactobacil.acidophilus-Bifido.animalis 2 cap PO QPM 05/24/23 05/30/23 History 5 billion cell sprinkle capsule (Probiotic) calcium carbonate 600 mg calcium 1,200 mg PO BID 05/24/23 05/30/23 History (1,500 mg) tablet (Calcium) cyanocobalamin (vitamin B-12) 1,000 mcg PO DAILY 05/24/23 05/30/23 History 1,000 mcg tablet (Vitamin B-12) epinephrine 0.3 mg/0.3 mL 0.3 mg IM DIRECTED PRN Allergic 05/24/23 05/30/23 History injection, auto-injector (EpiPen) Reaction fluticasone fur. 100 mcg-umeclid 1 inh inhalation QAM 05/24/23 05/30/23 History 62.5 mcg-vilant 25 mcg inhalat.powder (Trelegy Ellipta) lamotrigine 25 mg tablet (Lamictal) 25 mg PO BID 05/24/23 05/30/23 History nitroglycerin 0.4 mg sublingual 0.4 mg sublingual DIRECTED PRN 05/24/23 05/30/23 History tablet (Nitrostat) Chest Pain cetirizine 10 mg tablet 10 mg PO DAILY 05/29/23 05/29/23 History potassium chloride 20 mEq 20 meq PO QID 05/30/23 05/30/23 History tablet,extended release duloxetine 60 mg capsule,delayed 60 mg PO QAM #30 caps 06/04/23 Rx release ferrous sulfate 325 mg (65 mg 325 mg PO TIDM #90 tabs 06/04/23 Rx iron) tablet,delayed release torsemide 20 mg tablet 20 mg PO DAILY #30 tabs 06/04/23 Rx umeclidinium 62.5 mcg-vilanterol 1 ea inhalation DAILY #14 ea 06/04/23 Rx 25 mcg/actuation powdr for inhalation (Anoro Ellipta) Hospital Stay Data Consultations 05/29/23 21:32 ED Decision to Admit Stat 05/30/23 08:57 Consult Cardiology Routine 05/30/23 22:17 Consult Psychiatry Routine Diagnostic Imagining Performed 05/29/23 19:11 CT cervical spine wo con Stat CT head/brain wo con Stat CT thoracic spine wo con Stat Pending Results Patient Have Any Pending Studies at Discharge: No Discharge Instructions Given to Patient (Per Discharging Provider) MEDICATION CHANGES: Continue with duloxetine titration: continue 40mg tomorrow and then increase to 60mg daily on 06/06. Lexapro and desipramine have been discontinued. Continue iron supplementation three times a day with meals. Resume torsemide 20mg daily for now (instead of twice daily). Continue as needed Benadryl per over the counter instructions and steroid cream for leg rash. Continue other medications as before. SUMMARY OF TEST RESULTS: You were admitted for a fall and possible loss of consciousness likely due to both low blood pressure and medication side effects. Iron panel reflects iron deficiency anemia- started on iron supplementation. EEG was essentially normal during wakefulness and sleep. No focal abnormalities, potentially epileptogenic discharges, or abnormal slow activity was seen. PENDING TEST RESULTS: None RECOMMENDATIONS FOR FOLLOW-UP: Please follow-up with primary care provider as scheduled. Will need follow-up CBC to monitor anemia. PCP to address resuming torsemide BID dosing at follow up. OTHER INSTRUCTIONS: Seek medical attention if you have: * temperature above 101 * chest pain or trouble breathing * abdominal pain, nausea, vomiting * diarrhea, dark stools or bloody stools * any unanswered questions or concerns Call 911 if symptoms are severe. Please take good care of yourself. It has been a pleasure taking care of you. Please take care of yourself. If you have any questions regarding your recent hospitalization please contact [facility] and request Kathy Hospitalist @ [phone]. Total Time Total Time Spent Total Time Spent (In Minutes): 65 Supervising Physician Co-Signing Physician Notes Pt seen and examined by myself, Daniella Thomas MD on the day of service. Care was coordinated with Janet Younger PA-C. Please refer to her note for additional information. 72yoF with multiple admissions, admitted this time with concerns about hypotension, falls and syncopal episodes. Neuropsychiatric medications adjusted as noted above which were thought to be contributory. Pt declined rehab placement or home health services. Close PCP follow up recommended as well as neuro/psychiatric specialty followup given the medication changes noted. Otherwise as above.
[2023-06-05] MEDS ORDERED: DULoxetine HCL 60 MG CAP PO SCH (09:00)
--- NOTE | 2023-06-05 14:36 | Discharge Summary ---
Discharge Summary Date of Service June 05, 2023 delayed entry date of service 05/27/23 Notes For Next Care Provider Medication Changes From Visit Torsemide 20mg BID Admission HPI Per Admitting Provider History obtained from patient and records. Limited history from patient secondary to lethargic state. Medical history significant for chronic diastolic heart failure (EF 55 to 60%, TTE 2022), sinus node dysfunction sp PPM, asthma/ILD, LARRY (BiPAP noncompliance), pulmonary hypertension, history of gastric bypass, hyperparathyroidism as per records, hypothyroidism, ankylosing spondylitis as per records, chronic anemia (baseline hemoglobin of 11), recurrent UTIs (ESBL E. coli infection), urolithiasis, history pancreatic insufficiency/malabsorption as per records, mood/anxiety disorder, chronic pain/neuropathy. Two [facility] admissions this month. 05/20-05/22 for frequent falls and UTI. 05/24- 05/26 for hyperkalemia, ARF. Kidney function normal on discharge. Patient told to decrease home diuretic dose on discharge. Increased fluid retention, leg swelling at home as per patient without chest pain, SOB. PCP recommended some diuretic changes today. Patient lightheadedness, feeling funny on getting up. Subsequent fall without headache, head trauma, LOC. No chest pain, no SOB. Achy mid back pain post fall. Patient brought to the ER for evaluation. SBP 90s upon EMS arrival at patient's home. IV Dilaudid administered at the ER. 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 crackles right base. Abd/GI:+ BS, soft, NT, ND, no guarding :no alonzo Ext:no pretibial edema MSK:normal bulk and tone Neuro:exertional tremor (in all extremities when using said extremity, in trunk when sitting up) Psych:anxious mood and affect Skin:Visible skin is warm and dry. Mild petechial rash dorsal right foot/ankle, distal LE excoriations. Distal LLE with erythematous bulla surrounded by scar tissue. Faint bruises on mid and upper back. Pt not fully undressed for exam. Principal Dx & Hospital Course #1 = Principal Diagnosis (1) Acute renal failure: per Dr. Easley's notes with addendum: (1) Hyperkalemia: (2) JAVI (acute kidney injury): Plan: Admitted to telemetry Patient presenting from home with reports of tremor, generalized weakness, fall. Recently admitted to [facility] 05/20 through 05/22 for fall, weakness, UTI, hypokalemia. Potassium was replaced during admission however no adjustments were made in her medications. In the ED, labs show K+ 6.2. Patient was treated with albuterol treatment, IVF, IV Lasix, IV calcium. Creatinine mildly elevated from baseline at 1.3 K normalized Reviewed nephrology note from 04/2023 - recommended torsemide daily prn Previously she was on torsemide 40 bid then on 20 bid Discussed this in detail w/ the pt, she is concerned about her hx of CHF. She recalls that her it service manager told her she was dehydrated but she does not recall to take torsemide daily prn. She says she weighs herself daily and her weight is reported to pcp office. Currently she feels well and was ambulating w/o issues today. 05/27 euvolemic labs stable discharge on Torsemide 20mg BID K supplement (3) Fall: Plan: Head, C-spine, thoracic CTs unremarkable PT/OT, case management consult (4) Tremor: Plan: Tremor/ "shakiness" seems to occur when patient is trying to sit up or exert herself -- ?? if due to weakness from deconditioning from recent hospital admission PT/OT evals Consider additional work up with brain MRI if persistent (5) Urinary tract infection: Plan: During recent admission, patient diagnosed with E. coli UTI Discharged on 3 days of cefdinir however patient has not picked up the prescription yet. Ordered cefdinir 3 days to complete course. (6) Chronic diastolic (congestive) heart failure: Plan: Torsemide 20mg BID K supplement (7) Pancreatic insufficiency: Plan: No acute issues, continue Creon (8) Sinus node dysfunction: (9) Status post placement of cardiac pacemaker: Plan: No acute issues (10) Hypothyroidism: Plan: Continue levothyroxine (11) Complex sleep apnea syndrome: Plan: BiPAP as per home setting Discharge Exam General- oriented x 3, not in distress, speaks in sentences with no effort or accessory muscle use Eyes- anicteric Neck- no JVD Lungs- clear breath sounds bilaterally, no rales/wheezes Heart- normal rate, regular rhythm; no murmurs Abdomen- normal bowel sounds, nondistended, soft, nontender Extremities- trace pretibial edema, no calf tenderness Neuro- alert, oriented x 3; no gross focal neurologic deficits Skin- warm & dry Updated Medication List Medication Instructions Recorded Confirmed Type colesevelam 625 mg tablet (WelChol) 625 mg PO TID 06/17/18 05/30/23 History montelukast 10 mg tablet 10 mg PO HS 06/17/18 05/30/23 History (Singulair) ipratropium 0.5 mg-albuterol 3 mg 3 ml inhalation Q4H PRN Shortness 05/05/19 05/30/23 History (2.5 mg base)/3 mL nebulization Of Breath Or Wheezing soln dvdkwx-ojcnfdwv-wtrmjpa 4 cap PO TID 05/05/19 05/30/23 History 24,000-76,000-120,000 unit capsule,delayed rel (Creon) omeprazole magnesium 20 mg 20 mg PO BID 05/17/19 05/30/23 History tablet,delayed release (Prilosec OTC) risperidone 2 mg tablet 2 mg PO HS 02/27/21 05/30/23 History lorazepam 0.5 mg tablet 0.5 mg PO BID PRN Anxiety 11/06/22 05/24/23 History cholecalciferol (vitamin D3) 25 50 mcg PO QAM 11/15/22 05/30/23 History mcg (1,000 unit) capsule (Vitamin D3) metolazone 2.5 mg tablet 2.5 mg PO WK 11/15/22 05/30/23 History oxycodone-acetaminophen 5 mg-325 1 tab PO Q6H PRN Pain 11/15/22 05/30/23 History mg tablet (Percocet) ropinirole 0.5 mg tablet 0.5 mg PO HS 11/15/22 05/30/23 History valacyclovir 500 mg tablet 500 mg PO QAM 11/15/22 05/30/23 History calcitriol 0.5 mcg capsule 0.5 mcg PO BID #60 caps 12/21/22 05/30/23 Rx wcroisen-vwj-tdfey acid 0.4 1 tab PO DAILY 12/31/22 05/30/23 History mg-lycopene 300 mcg-lutein 250 mcg tablet (Cerovite Senior) albuterol sulfate 90 mcg/actuation 2 inh inhalation Q6H PRN Shortness 02/03/23 05/30/23 Rx breath activated powder inhaler Of Breath Or Wheezing #1 ea vibegron 75 mg tablet (Gemtesa) 75 mg PO QAM 04/17/23 05/30/23 History pregabalin 100 mg capsule 100 mg PO TID 30 days #90 caps 04/21/23 05/30/23 Rx fluticasone propionate 50 1 spray intranasal DAILY PRN 05/20/23 05/30/23 History mcg/actuation nasal Congestion spray,suspension levothyroxine 88 mcg tablet 88 mcg PO QAM #30 tabs 05/21/23 05/30/23 Rx Lactobacil.acidophilus-Bifido.animalis 2 cap PO QPM 05/24/23 05/30/23 History 5 billion cell sprinkle capsule (Probiotic) calcium carbonate 600 mg calcium 1,200 mg PO BID 05/24/23 05/30/23 History (1,500 mg) tablet (Calcium) cyanocobalamin (vitamin B-12) 1,000 mcg PO DAILY 05/24/23 05/30/23 History 1,000 mcg tablet (Vitamin B-12) epinephrine 0.3 mg/0.3 mL 0.3 mg IM DIRECTED PRN Allergic 05/24/23 05/30/23 History injection, auto-injector (EpiPen) Reaction fluticasone fur. 100 mcg-umeclid 1 inh inhalation QAM 05/24/23 05/30/23 History 62.5 mcg-vilant 25 mcg inhalat.powder (Trelegy Ellipta) lamotrigine 25 mg tablet (Lamictal) 25 mg PO BID 05/24/23 05/30/23 History nitroglycerin 0.4 mg sublingual 0.4 mg sublingual DIRECTED PRN 05/24/23 05/30/23 History tablet (Nitrostat) Chest Pain cetirizine 10 mg tablet 10 mg PO DAILY 05/29/23 05/29/23 History potassium chloride 20 mEq 20 meq PO QID 05/30/23 05/30/23 History tablet,extended release duloxetine 60 mg capsule,delayed 60 mg PO QAM #30 caps 06/04/23 Rx release ferrous sulfate 325 mg (65 mg 325 mg PO TIDM #90 tabs 06/04/23 Rx iron) tablet,delayed release torsemide 20 mg tablet 20 mg PO DAILY #30 tabs 06/04/23 Rx umeclidinium 62.5 mcg-vilanterol 1 ea inhalation DAILY #14 ea 06/04/23 Rx 25 mcg/actuation powdr for inhalation (Anoro Ellipta) Hospital Stay Data Consultations 05/29/23 21:32 ED Decision to Admit Stat 05/30/23 08:57 Consult Cardiology Routine 05/30/23 22:17 Consult Psychiatry Routine Diagnostic Imagining Performed Laboratory Results WBC 6.31 K/ul (4.8-10.8) 06/04/23 05:45 RBC 3.82 M/uL (4.20-5.40) L 06/04/23 05:45 Hgb 10.8 g/dl (12.0-16.0) L 06/04/23 05:45 Hct 33.7 % (37.0-47.0) L 06/04/23 05:45 MCV 88.2 fL (80.0-100.0) 06/04/23 05:45 MCH 28.3 pg (25.0-34.0) 06/04/23 05:45 MCHC 32.0 g/dL (32.0-36.0) 06/04/23 05:45 RDW Std Deviation 54.0 fL (36.4-46.3) H 06/04/23 05:45 RDW Coeff of David 16.6 % (11.5-14.5) H 06/04/23 05:45 Plt Count 197 K/uL (130-400) 06/04/23 05:45 MPV 10.2 fL (9.4-12.4) 06/04/23 05:45 Immature Gran % (Auto) 0.4 % 06/02/23 05:36 Neut % (Auto) 69.5 % 06/02/23 05:36 Lymph % (Auto) 13.0 % 06/02/23 05:36 [place] % (Auto) 9.7 % 06/02/23 05:36 Eos % (Auto) 6.6 % 06/02/23 05:36 Baso % (Auto) 0.8 % 06/02/23 05:36 Neut # (Auto) 4.91 K/uL (1.40-6.50) 06/02/23 05:36 Lymph # (Auto) 0.92 K/uL (1.20-3.40) L 06/02/23 05:36 [place] # (Auto) 0.69 K/uL (0.11-0.59) H 06/02/23 05:36 Eos # (Auto) 0.47 K/uL (0.00-0.50) 06/02/23 05:36 Baso # (Auto) 0.06 K/uL (0.00-0.20) 06/02/23 05:36 Immature Gran # (Auto) 0.03 K/uL (0.01-0.20) 06/02/23 05:36 APTT 31.5 Seconds (21.0-31.0) H 05/31/23 05:43 PTT Ratio 1.1 05/31/23 05:43 ABG pH 7.42 (7.35-7.45) 05/30/23 19:59 ABG pCO2 51 mmHg (35-46) H 05/30/23 19:59 ABG pO2 91 mmHg (80-95) 05/30/23 19:59 ABG HCO3 33 mmol/L (19-24) H 05/30/23 19:59 ABG O2 Saturation 96.9 % (90-95) H 05/30/23 19:59 ABG Base Excess 7.2 mEq/L (-9-1.8) H 05/30/23 19:59 Ahsan Test Pos (Pos) 05/30/23 19:59 Oxygen Given 2 05/30/23 19:59 Sodium 140 mmol/L (136-145) 06/04/23 05:45 Potassium 4.2 mmol/L (3.5-5.1) D 06/04/23 05:45 Chloride 108 mmol/L (98-107) H 06/04/23 05:45 Carbon Dioxide 26 mmol/L (21-32) 06/04/23 05:45 Anion Gap 6 (3-11) 06/04/23 05:45 BUN 19 mg/dl (6-23) 06/04/23 05:45 Creatinine 0.75 mg/dl (0.6-1.2) 06/04/23 05:45 Est Cr Clr Drug Dosing 65.9 ml/min 06/04/23 05:45 Est GFR ( Amer) 93.6 ml/min 06/04/23 05:45 Est GFR (Non-Af Amer) 80.8 ml/min 06/04/23 05:45 BUN/Creatinine Ratio 25.3 (10-20) H 06/04/23 05:45 Glucose 93 mg/dl (70-99(Fasting)) 06/04/23 05:45 POC Glucose 128 mg/dl (70-99) H 05/30/23 21:25 Estimat Average Glucose 114 mg/dl 05/29/23 19:50 Hemoglobin A1c 5.6 % (4.5-5.6) 05/29/23 19:50 Lactate 0.4 mmol/L (0.4-2.0) 05/29/23 23:39 Calcium 9.6 mg/dl (8.6-10.3) 06/04/23 05:45 Magnesium 1.9 mg/dl (1.7-2.4) 06/02/23 05:36 Iron 10 mcg/dl (35-150) L 06/02/23 05:36 TIBC 208 mcg/dl (250-450) L 06/02/23 05:36 Unsaturated IBC 198 mcg/dl (155-355) 06/02/23 05:36 Transferrin % Sat 5 % (15-50) L 06/02/23 05:36 Total Bilirubin 0.7 mg/dl (0.2-1.0) 06/01/23 06:18 AST 14 U/L (13-39) 06/01/23 06:18 ALT 15 U/L (7-52) 06/01/23 06:18 Alkaline Phosphatase 46 U/L (34-104) 06/01/23 06:18 Ammonia 32.0 umol/L (18-72) 05/30/23 22:30 Troponin I High Sens 51.0 pg/ml (0-14) H* D 05/31/23 05:43 Total Protein 6.2 gm/dl (6.0-8.3) 06/01/23 06:18 Albumin 4.3 gm/dl (3.4-5.0) 06/01/23 06:18 Globulin 1.9 gm/dl (2.5-4.0) L 06/01/23 06:18 Albumin/Globulin Ratio 2.3 (0.9-2) H 06/01/23 06:18 Lipase 11 U/L (11-82) 05/29/23 19:50 Urine Color Yellow 05/29/23 21:55 Urine Appearance Clear (Clear) 05/29/23 21:55 Urine pH 6.0 (4.5-7.5) 05/29/23 21:55 Ur Specific [place] 1.006 (1.000-1.030) 05/29/23 21:55 Urine Protein Negative (Negative) 05/29/23 21:55 Urine Glucose (UA) Negative (Negative) 05/29/23 21:55 Urine Ketones Negative (Negative) 05/29/23 21:55 Urine Blood Negative (Negative) 05/29/23 21:55 Urine Nitrite Negative (Negative) 05/29/23 21:55 Urine Bilirubin Negative (Negative) 05/29/23 21:55 Urine Urobilinogen Negative (Negative) 05/29/23 21:55 Ur Leukocyte Esterase Trace (Negative) H 05/29/23 21:55 Urine WBC (Auto) 1-5 /hpf (0-5) 05/29/23 21:55 Urine RBC (Auto) 0-4 /hpf (0-4) 05/29/23 21:55 U Hyaline Cast (Auto) 0 /lpf (0-5) 05/29/23 21:55 U Epithel Cells (Auto) 0-5 /lpf (0-5) 05/29/23 21:55 Urine Bacteria (Auto) Negative (Negative) 05/29/23 21:55 SARS-CoV-2, RNA, NAAT NEGATIVE (NEGATIVE) 05/30/23 20:[address] 05/29/23 19:11 Exam(s): CT C SPINE EXAM: CT Cervical Spine Without Intravenous Contrast CLINICAL HISTORY: Reason for exam: fall. TECHNIQUE: Axial computed tomography images of the cervical spine without intravenous contrast. CTDI is 19.49 mGy and DLP is 329.2 mGy-cm. Automated exposure control was utilized for the study. A dose lowering technique was utilized adhering to the principles of ALARA. COMPARISON: No relevant prior studies available. FINDINGS: The vertebral body heights are maintained. The craniocervical junction is intact. The atlanto-dens interval is maintained. The dens is intact. There is no spondylolisthesis. Multilevel cervical spondylosis and degenerative disc disease. Straightening of the cervical lordosis. The unenhanced neck soft tissues are grossly unremarkable. The visualized lung apices are grossly clear. IMPRESSION: No acute fracture or subluxation of the cervical spine. Electronically signed by: Andrea Mitchell MD 05/29/23 20:[address] 05/29/23 19:11 Exam(s): CT HEAD Without Contrast EXAM: CT Head Without Intravenous Contrast CLINICAL HISTORY: Reason for exam: fall. TECHNIQUE: Axial computed tomography images of the head/brain without intravenous contrast. CTDI is 38.6 mGy and DLP is 546.36 mGy-cm. Automated exposure control was utilized for the study. A dose lowering technique was utilized adhering to the principles of ALARA. COMPARISON: No relevant prior studies available. FINDINGS: No acute intracranial hemorrhage. No midline shift or mass effect. The territorial alberts-white matter differentiation is maintained throughout. Age-related cerebral volume loss. Periventricular and subcortical white matter hypoattenuation, consistent with chronic microangiopathy. The visualized orbits appear grossly unremarkable. The calvarium is intact. Paranasal sinus mucosal thickening. IMPRESSION: No acute intracranial hemorrhage, midline shift, or mass effect. Electronically signed by: Andrea Mitchell MD 05/29/23 20:[address] 05/29/23 19:11 Exam(s): CT T SPINE EXAM: CT Thoracic Spine Without Intravenous Contrast CLINICAL HISTORY: Reason for exam: fall mid t spine pain. TECHNIQUE: Axial computed tomography images of the thoracic spine without intravenous contrast. CTDI is 35.87 mGy and DLP is 1155.56 mGy-cm. Automated exposure control was utilized for the study. A dose lowering technique was utilized adhering to the principles of ALARA. COMPARISON: No relevant prior studies available. FINDINGS: The vertebral body heights are maintained. The thoracic kyphosis is preserved. There is no spondylolisthesis. Hemangioma in the T4 vertebral body. The posterior elements are maintained, without evidence of acute fracture. The pedicles are intact. Multilevel thoracic spondylosis and degenerative disc disease. IMPRESSION: No acute fracture or subluxation of the thoracic spine. Electronically signed by: Andrea Mitchell MD 05/29/23 20:57 PM Chest X-Ray 05/30/23 19:41 XR chest 1V portable HISTORY: cough COMPARISON: Chest 05/29/2023. FINDINGS: No pneumothorax. A right jugular Port-A-Cath terminates in the SVC. The heart remains enlarged. Postoperative changes again noted within the upper abdomen. Chronic interstitial thickening persists. No new focal lung consolidations identified. IMPRESSION: No significant change compared to the prior study. No acute process. ACT 112: Negative or not required by law. Electronically signed by: Noel Crenshaw M.D. 05/31/2023 6:50 AM Pending Results Patient Have Any Pending Studies at Discharge: No Total Time Total Time Spent Total Time Spent (In Minutes): >30 minutes
[2023-06-06] MEDS ORDERED: DULoxetine HCL 60 MG CAP PO SCH (09:00)
== END 2023-06-04 17:36 | disposition home or self-care (01) | DRG 312 ==
LOC: ED 18:57 → 2S 23:35 → SUATTDRO 23:35 → 2S 05-30 01:37 → 3N 06-03 21:42

== ENCOUNTER 2023-10-30 14:08 | Inpatient (IN) ==
--- NOTE | 2023-10-30 14:29 | ED Triage Note ---
Date of Service October 30, 2023 Provider in Triage Author: Sixto Mack History of Present Illness This patient was briefly evaluated while in triage. An abbreviated physical exam was performed. This patient is a 73-year-old Female who presents to the ED via ambulance for headache, chest pain and nausea for the past 6 to 8 weeks. Patient does have a prior history of CHF and pacer. Physical Exam CONSTITUTIONAL: Healthy and well nourished. Alert and oriented X 3. Patient does not appear in any acute distress. HEENT: Normocephalic, atraumatic. Pupils equal, round and reactive. RESPIRATORY: Clear to auscultation bilaterally with no wheezing, crackles, rhonchi or stridor. CARDIOVASCULAR: Regular rate and rhythm with no murmurs, rubs or gallops. GASTROINTESTINAL: Bowel sounds present in all quadrants. INTEGUMENTARY: No rash or other significant dermatologic conditions noted. HEMATOLOGIC: No ecchymosis or petechiae. PSYCHIATRIC: Positive affect. NEUROLOGIC: No focal neurologic deficits noted. Initial orders for labs and / or imaging were placed and patient was placed in the waiting area until a bed is available. Please see further documentation for the full ED course. Patient does report a history of a monthly headache. Patient denies any known sick contacts. The patient lives alone. Patient denies any recent falls or injuries. The patient rates her discomfort a 10 out of 10.
--- NOTE | 2023-10-30 15:14 | CT Scan Report ---
CT head/brain wo con CLINICAL HISTORY: 73 years-old Female with LESLIE. Acute headache TECHNIQUE: Multiple axial CT images of the head were obtained without contrast. A dose lowering tech nique was utilized adhering to the principles of ALARA. CT DOSE: 547.75 mGy.cm COMPARISON: 05/29/2023 FINDINGS: No acute intracranial hemorrhage, midline shift, intracranial mass, hydrocephalus, territorial ischem ia or abnormal extra-axial collection. Involutional changes with probable chronic microvascular ische kacey disease. The calvarium is intact. Mild mucoperiosteal thickening of the paranasal sinuses with chronic postop erative changes. Prior bilateral lens repair. Trace right mastoid effusion. IMPRESSION: No acute intracranial abnormality. ACT 112: Negative or not required by law. The above report was generated using voice recognition software. It may contain grammatical, syntax o r spelling errors. Electronically signed by: Soham Kirby M.D. 10/30/2023 3:12 PM
[2023-10-30 15:51] LABS: Basophils # (auto) 0.05 K/uL (0.00-0.20); Basophils % (auto) 0.9 %; Eosinophils # (auto) 0.15 K/uL (0.00-0.50); Eosinophils % (auto) 2.7 %; Hemoglobin 12.7 g/dl (12.0-16.0); Immature Granulocytes # (auto) 0.02 K/uL (0.01-0.20); Immature Granulocytes % (auto) 0.4 %; Lymphocytes # (auto) 1.25 K/uL (1.20-3.40); Lymphocytes % (auto) 22.8 %; Mean Corpuscular Hemoglobin 28.5 pg (25.0-34.0); Mean Corpuscular Hgb Conc 33.4 g/dL (32.0-36.0); Mean Corpuscular Volume 85.4 fL (80.0-100.0); Mean Platelet Volume 9.9 fL (9.4-12.4); Monocytes # (auto) 0.73 K/uL (0.11-0.59); Monocytes % (auto) 13.3 %; Neutrophils # (auto) 3.28 K/uL (1.40-6.50); Neutrophils % (auto) 59.9 %; Platelet Count 214 K/uL (130-400); RDW Coefficient of Variation 14.9 % (11.5-14.5); RDW Standard Deviation 46.2 fL (36.4-46.3); Red Blood Count 4.45 M/uL (4.20-5.40); White Blood Count 5.48 K/ul (4.8-10.8)
[2023-10-30 16:07] LABS: Partial Thromboplastin Ratio 1.2; Partial Thromboplastin Time 35 Seconds (21-31); Prothrombin Time 10.9 Seconds (9.0-12.0)
--- NOTE | 2023-10-30 16:15 | XRay Report ---
XR chest 1V not portable HISTORY: 73 years-old Female Chest pain, nonspecific COMPARISON: 05/30/2023 TECHNIQUE: AP view of the chest FINDINGS: Cardiac silhouette is enlarged. Right IJ Cwqkfn-h-Obkn catheter is unchanged. A loop recorder device. Unchanged mild right hemidiaphragmatic elevation. Surgical clips project over the epigastric tissues . Chronic interstitial coarsening. No pneumothorax, pleural effusion or lobar airspace consolidation. The bones appear grossly intact. IMPRESSION: 1. No acute process. 2. Cardiomegaly with chronic interstitial coarsening. ACT 112: Negative or not required by law. The above report was generated using voice recognition software. It may contain grammatical, syntax o r spelling errors. Electronically signed by: Soham Kirby M.D. 10/30/2023 4:14 PM
[2023-10-30 16:21] LABS: Alanine Aminotransferase 18 U/L (7-52); Albumin Globulin Ratio 1.4 (0.9-2); Albumin Level 4.1 gm/dl (3.4-5.0); Alkaline Phosphatase 72 U/L (34-104); Anion Gap 9 (3-11); Aspartate Aminotransferase 20 U/L (13-39); BUN Creatinine Ratio 37.8 (10-20); Bilirubin,Total 0.5 mg/dl (0.2-1.0); Blood Urea Nitrogen 37 mg/dl (6-23); Calcium 9.5 mg/dl (8.6-10.3); Carbon Dioxide 33 mmol/L (21-32); Chloride 93 mmol/L (98-107); Est GFR (African American) 67.3 ml/min; Globulin 2.9 gm/dl (2.5-4.0); Glucose 96 mg/dl (70-99(Fasting)); Lipase 23 U/L (11-82); Potassium 2.5 mmol/L (3.5-5.1); Sodium 135 mmol/L (136-145); Troponin I High Sensitivity 16.7 pg/ml (0-14)
[2023-10-30] MEDS ORDERED: POTASSIUM CHLORIDE CRTAB 20 MEQ TABCR PO STA ×2 (16:23→21:18)
--- NOTE | 2023-10-30 17:38 | Electrocardiogram Report ---
Test Reason : Blood Pressure : / mmHG Vent. Rate : 059 BPM Atrial Rate : 059 BPM P-R Int : 204 ms QRS Dur : 098 ms QT Int : 456 ms P-R-T Axes : 080 -14 066 degrees QTc Int : 451 ms Sinus bradycardia Left ventricular hypertrophy with repolarization abnormality Abnormal ECG When compared with ECG of 29-MAY-2023 19:19, HI interval has decreased QRS duration has decreased Confirmed by Rohith Patel ([id number]) on 10/30/2023 5:38:24 PM Referred By: Confirmed By:Irving Patel
--- NOTE | 2023-10-30 18:01 | Emergency Department Note ---
History of Present Illness General Chief complaint: Illness Stated complaint: HEADACHE Time Seen by Provider: 10/30/23 17:28 Source: patient, RN notes reviewed and old records reviewed (06/10/23-discharge visit for when she had hyperkalemia and renal insufficiency) Mode of arrival: ambulatory Limitations: no limitations History of Present Illness Maximum Pain Intensity: 10 This patient is 73-year-old female who has a history of multiple medical problems including CHF, comes in after having multiple complaints. She has had a headache off and on for 6 to 8 weeks. She has had some nausea. She also felt short of breath that is chronic but it has been increasing lately she has had some increasing lower extremity edema at times she had chest pain off-and-on she had about a 5-minute episode today nothing made it better or worse it occurred when she was resting she is not short of breath during this episode. She feels she been keeping up with her fluids. No recent change in her medication. No blood in her stool. No fall or trauma no fever she has had a cough at times. She is followed by Dr. Marx at [facility] Medications Medication Instructions Recorded Confirmed Type colesevelam 625 mg tablet (WelChol) 625 mg PO TID 06/17/18 10/30/23 History montelukast 10 mg tablet 10 mg PO HS 06/17/18 10/30/23 History (Singulair) ipratropium 0.5 mg-albuterol 3 mg 3 ml inhalation Q4H PRN Shortness 05/05/19 10/30/23 History (2.5 mg base)/3 mL nebulization Of Breath Or Wheezing soln qdklxr-oapunwsj-ylvaxrb 4 cap PO TID 05/05/19 10/30/23 History 24,000-76,000-120,000 unit capsule,delayed rel (Creon) omeprazole magnesium 20 mg 20 mg PO BID 05/17/19 10/30/23 History tablet,delayed release (Prilosec OTC) risperidone 2 mg tablet 2 mg PO HS 02/27/21 10/30/23 History metolazone 2.5 mg tablet 2.5 mg PO WK 11/15/22 10/30/23 History oxycodone-acetaminophen 5 mg-325 1 tab PO Q6H PRN Pain 11/15/22 10/30/23 History mg tablet (Percocet) ropinirole 0.5 mg tablet 0.5 mg PO HS 11/15/22 10/30/23 History valacyclovir 500 mg tablet 500 mg PO QAM 11/15/22 10/30/23 History calcitriol 0.5 mcg capsule 0.5 mcg PO BID #60 caps 12/21/22 10/30/23 Rx albuterol sulfate 90 mcg/actuation 2 inh inhalation Q6H PRN Shortness 02/03/23 10/30/23 Rx breath activated powder inhaler Of Breath Or Wheezing #1 ea levothyroxine 88 mcg tablet 88 mcg PO QAM #30 tabs 05/21/23 10/30/23 Rx cyanocobalamin (vitamin B-12) 1,000 mcg PO DAILY 05/24/23 10/30/23 History 1,000 mcg tablet (Vitamin B-12) nitroglycerin 0.4 mg sublingual 0.4 mg sublingual DIRECTED PRN 05/24/23 10/30/23 History tablet (Nitrostat) Chest Pain cetirizine 10 mg tablet 10 mg PO DAILY 05/29/23 10/30/23 History duloxetine 60 mg capsule,delayed 60 mg PO QAM #30 caps 06/04/23 10/30/23 Rx release torsemide 20 mg tablet 20 mg PO BID 06/24/23 10/30/23 History calcium carbonate 600 mg calcium 1,200 mg PO TID 07/22/23 10/30/23 History (1,500 mg) tablet (Calcium) denosumab 60 mg/mL subcutaneous 60 mg subcut Q180D #1 mL 07/22/23 10/30/23 Rx syringe (Prolia) pregabalin 100 mg capsule 100 mg PO TID 30 days #90 caps 08/17/23 10/30/23 Rx potassium chloride 20 mEq 20 meq PO BID #180 tabs 08/19/23 10/30/23 Rx tablet,extended release vibegron 75 mg tablet (Gemtesa) 75 mg PO DAILY #90 tabs 10/13/23 10/30/23 Rx fluticasone furoate 200 1 inh inhalation DAILY 10/30/23 10/30/23 History mcg-vilanterol 25 mcg/dose inhalation powder (Breo Ellipta) gmvyebjthqef-oqoehvqg-yvlror tablet 1 tab PO DAILY 10/30/23 10/30/23 History potassium citrate 15 mEq (1,620 15 meq PO BID 10/30/23 10/30/23 History mg) tablet,extended release rosuvastatin 10 mg tablet 10 mg PO QAM 10/30/23 10/30/23 History Allergies Allergy/AdvReac Type Severity Reaction Status Date / Time bethanechol Allergy Intermediate RASH, Verified 10/30/23 18:22 "FEELS FUNNY" Cephalosporins Allergy Intermediate RASH, Verified 10/30/23 18:22 DIARRHEA levofloxacin Allergy Intermediate RASH,TURNED Verified 10/30/23 18:22 RED Sulfa (Sulfonamide Allergy Intermediate Generalized Verified 10/30/23 18:22 Antibiotics) Rash ertapenem Allergy Mild RASH Verified 10/30/23 18:22 atropine Allergy Unknown ON GMG MED Verified 10/30/23 18:22 LIST clindamycin Allergy Unknown Unknown Verified 10/30/23 18:22 dipyridamole Allergy Unknown PERSANTINE--ON Verified 10/30/23 18:22 GMG MED LIST droperidol Allergy Unknown Unknown Verified 10/30/23 18:22 meperidine [From Demerol] Allergy Unknown ? ALLERGY Verified 10/30/23 18:22 ON [facility]G MED LIST promethazine Allergy Unknown UNKNOWN Verified 10/30/23 18:22 tobramycin Allergy Unknown UNKNOWN Verified 10/30/23 18:22 aspirin AdvReac Severe BLEEDING Verified 10/30/23 18:22 doxycycline AdvReac Severe severe Verified 10/30/23 18:22 Diarrhea, nausea metolazone AdvReac Severe ELECTROLYTE Verified 10/30/23 18:22 ISSUES--HYPOKALEMIA bupropion AdvReac Intermediate NERVOUS Verified 10/30/23 18:22 REACTION cephalexin AdvReac Intermediate GI SYMPTOMS Verified 10/30/23 18:22 morphine AdvReac Intermediate NERVOUS Verified 10/30/23 18:22 REACTION TO IT nitrofurantoin AdvReac Intermediate Vomiting Verified 10/30/23 18:22 [From Macrobid] prochlorperazine AdvReac Intermediate NERVOUS Verified 10/30/23 18:22 REACTION tedizolid AdvReac Intermediate GI SYMPTOMS Verified 10/30/23 18:22 venlafaxine [From Effexor] AdvReac Intermediate NERVOUS Verified 10/30/23 18:22 REACTION lamotrigine AdvReac Unknown tremors Verified 10/30/23 18:22 Past Med/Surg History Medical History Neuropathy Bronchiectasis ILD (interstitial lung disease) Recurrent major depression in remission History of DVT (deep vein thrombosis) Pacemaker Medtronic, implanted 12/2022 (bradycardia) Right rotator cuff tear Osteoporosis Nocturnal hypoxemia Osteoarthritis of left knee Kidney stones LARRY treated with BiPAP Junctional bradycardia Hypothyroidism Secondary hyperparathyroidism Pulmonary hypertension mild per 07/[address] report Atherosclerosis of both lower extremities Chronic kidney disease stage 3b GERD without esophagitis COPD (chronic obstructive pulmonary disease) "Well controlled" History of anemia Lumbar transverse process fracture Pt reports lower back detioriating - can't lie flat/sleep on a chair Pulmonary nodule seen on imaging study Reactive hypoglycemia Vitamin D deficiency Wrist injury Scar tissue surrounding remote wrist ORIF several years ago resulting in intermittent inflammation per pt Bilateral nephrolithiasis H/O concussion Remote hx "a long time ago" Incisional hernia Abdominal (from multiple surgeries/feeding tube) Obesity Sepsis 05/[address] [facility], urosepsis 2/2 obstructing renal stone, S/P cysto/stent and ESWL Chronic urinary tract infection Sleep apnea complex sleep apnea, BIPAP (non-compliant) Hyperlipidemia per records Complex sleep apnea syndrome Chronic venous insufficiency Chronic sinusitis Pancreatic insufficiency chronic pancreatitis Peripheral neuropathy MRSA (methicillin resistant staph aureus) culture positive Hx (Left wrist) Had 3 nasal swab and all negative (through [facility] per pt) Port-A-Cath in place right side due to poor vascular access Urinary leakage PUD (peptic ulcer disease) Had feeding tube for 28 years (has been removed for 11 years) Depression Asthma Peripheral neuropathy Lumbar stenosis Chronic diastolic (congestive) heart failure [place] [facility] Short bowel syndrome Fall PVC (premature ventricular contraction) Pernicious anemia (08/08/13) Surgical History History of esophageal dilatation History of cystoscopy multiple H/O shoulder surgery RT arthroscopy 05/28/2021: LMA#4 atraumatic x 1 + PNB. Anesthesia postop progress note: "Pt denies SOB at this time. Block is functioning well. Vital signs stable and appropriate. Oxygenating well considering block placement and her comorbidities. Plan to discharge home with IS." S/P right rotator cuff repair S/P ureteral stent placement Status post laser lithotripsy of ureteral calculus History of prior ablation treatment Right LE in January 2020 and left LE 04/18/20 History of partial gastrectomy History of sinus surgery History of tonsillectomy and adenoidectomy History of total abdominal hysterectomy and bilateral salpingo-oophorectomy History of cholecystectomy History of appendectomy History of open reduction and internal fixation (ORIF) procedure left wrist + manipulation (01/2018) and I&D (10/2019) History of joint replacement Rt thumb History of knee replacement procedure of right knee History of esophagogastroduodenoscopy (EGD) History of colonoscopy History of gastrointestinal surgery multiple History of cardiac cath 08/2019 ([facility])- essentially normal coronary arteries angiographically, no stents Family History Mother Family history of diabetes mellitus Sister Family history of diabetes mellitus Family history of breast cancer Father Esophageal cancer Other Family history non-contributory No family history of adverse response to anesthesia Social History Smoking Status: Never smoker Second Hand Exposure: No; Do You Dip or Chew Tobacco: No; Hx Alcohol Use: No Hx Substance Use: No Preferred Language: Bulgarian Communication Ability: Effective Visual Impairment: No Limitations Soap Slabber Required: No Beliefs That Will Affect Care: None marital status: Single Current Living Situation: Personal Care Facility Current Living Situation Comment: apartment behind group home facility How many Children do You have: 0 Feels Safe at Home: Yes Assistive Devices: Walker Review of Systems A total of 10 systems reviewed and were otherwise negative Physical Exam Vital Signs Vital Signs - 24 hr 10/30/23 14:27 10/30/23 18:10 Temperature 36.5 C Temperature Source Temporal Artery Scan Pulse Rate 62 58 L Respiratory Rate 20 Respiratory Effort / Characteristics Non-Labored Spontaneous Respiratory Depth Normal Blood Pressure 121/72 Blood Pressure Mean 88 Pulse Oximetry 97 Oxygen Delivery Method Room Air Sepsis Recent Fever Within 48 Hours No Sepsis New/Unexplained Change in Mental Status No Sepsis Action Taken by Nursing No Action Required General: Well developed well nourished older female who appears in no acute distress, breathing comfortably on room air. Normal speech HEENT: Normal cephalic atraumatic. Pupils are equal round and reactive to light. Extraocular movements are intact. Oropharynx is pink with moist mucous membranes. No swelling of the mouth lips or tongue. Neck: Supple with a midline trachea. No meningeal signs or stiffness, no JVD or bruits. No Stridor. Chest: Clear to auscultation bilaterally. No wheezes or rhonchi. No increased work of breathing. There is an a port which is accessed in her right chest. Heart: Regular rate and rhythm without murmurs or gallops. Abdomen: Soft nontender, nondistended without rebound guarding or rigidity. Extremities: No cyanosis clubbing. She has chronic mild lower extremity edema bilaterally. No calf tenderness or assymetry Spine/Back. Non tender to palpation. No CVA tenderness Skin: Good turgor without rashes. Neurologic exam: Cranial nerves two through 12 are intact. Motor and sensation are intact and symmetrical throughout. Course Administered Medications Potassium Chloride (K Hermilo / Wtr) 10 meq in 100 mls @ 100 mls/hr IV Q1H CATE Stop: 10/31/23 00:29 Last Admin: 10/30/23 22:36 Dose: 100 mls/hr Documented By: TORIBIO Discontinued Medications Potassium Chloride (K Hermilo / Wtr) 10 meq in 100 mls @ 100 mls/hr IV Q1H CATE Stop: 10/30/23 19:59 Last Infusion: 10/30/23 20:45 Dose: Infused Documented By: Admin: 10/30/23 19:29 Dose: 100 mls/hr Documented By: Infusion: 10/30/23 19:20 Dose: Infused Documented By: Admin: 10/30/23 18:15 Dose: 100 mls/hr Documented By: ARETHA Acetaminophen (Ofirmev) 1,000 mg in 100 mls @ 400 mls/hr IV NOW STA Stop: 10/30/23 19:17 Last Infusion: 10/30/23 20:45 Dose: Infused Documented By: Admin: 10/30/23 19:45 Dose: 400 mls/hr Documented By: NICOLE Potassium Chloride (Potassium Chloride Crtab 20 Meq Tabcr) 40 meq PO NOW STA Stop: 10/30/23 16:24 Last Admin: 10/30/23 18:20 Dose: 40 meq Documented By: ARETHA Potassium Chloride (Potassium Chloride Crtab 20 Meq Tabcr) 40 meq PO NOW STA Stop: 10/30/23 21:19 Last Admin: 10/30/23 22:36 Dose: 40 meq Documented By: TORIBIO Medical Decision Making Differential Diagnosis CHF, acute coronary syndrome, electrolyte or metabolic abnormality, arrhythmia, intracranial process, infection Medical Records Attestation: I reviewed the patient's medical records. Home Medications Current Medication List: was personally reviewed by me Laboratory Data Attestation: I reviewed the patient's lab results. 10/30/23 15:30 10/30/23 15:30 Lab Results 10/30/23 Range/Units 15:30 WBC 5.48 (4.8-10.8) K/ul RBC 4.45 (4.20-5.40) M/uL Hgb 12.7 (12.0-16.0) g/dl Hct 38.0 (37.0-47.0) % MCV 85.4 (80.0-100.0) fL MCH 28.5 (25.0-34.0) pg MCHC 33.4 (32.0-36.0) g/dL RDW Std Deviation 46.2 (36.4-46.3) fL RDW Coeff of David 14.9 H (11.5-14.5) % Plt Count 214 (130-400) K/uL MPV 9.9 (9.4-12.4) fL Immature Gran % (Auto) 0.4 % Neut % (Auto) 59.9 % Lymph % (Auto) 22.8 % [place] % (Auto) 13.3 % Eos % (Auto) 2.7 % Baso % (Auto) 0.9 % Neut # (Auto) 3.28 (1.40-6.50) K/uL Lymph # (Auto) 1.25 (1.20-3.40) K/uL [place] # (Auto) 0.73 H (0.11-0.59) K/uL Eos # (Auto) 0.15 (0.00-0.50) K/uL Baso # (Auto) 0.05 (0.00-0.20) K/uL Immature Gran # (Auto) 0.02 (0.01-0.20) K/uL PT 10.9 (9.0-12.0) Seconds INR 1.0 (0.9-1.1) APTT 35 H (21-31) Seconds PTT Ratio 1.2 Sodium 135 L (136-145) mmol/L Potassium 2.5 L* (3.5-5.1) mmol/L Chloride 93 L (98-107) mmol/L Carbon Dioxide 33 H (21-32) mmol/L Anion Gap 9 (3-11) BUN 37 H (6-23) mg/dl Creatinine 0.98 (0.6-1.2) mg/dl Est Cr Clr Drug Dosing Not Reportable Est GFR ( Amer) 67.3 ml/min Est GFR (Non-Af Amer) 58.0 ml/min BUN/Creatinine Ratio 37.8 H (10-20) Glucose 96 (70-99(Fasting)) mg/dl Calcium 9.5 (8.6-10.3) mg/dl Magnesium 1.9 (1.7-2.4) mg/dl Total Bilirubin 0.5 (0.2-1.0) mg/dl AST 20 (13-39) U/L ALT 18 (7-52) U/L Alkaline Phosphatase 72 (34-104) U/L Troponin I High Sens 16.7 H (0-14) pg/ml B-Natriuretic Peptide 64 (0-100) pg/ml Total Protein 7.0 (6.0-8.3) gm/dl Albumin 4.1 (3.4-5.0) gm/dl Globulin 2.9 (2.5-4.0) gm/dl Albumin/Globulin Ratio 1.4 (0.9-2) Lipase 23 (11-82) U/L Imaging Data Attestation: I personally reviewed and interpreted this imaging study as follows: My Impression: Chest x-rayno acute infiltrate, failure, pneumothorax seen. Head CTno hemorrhage or mass effect seen. Radiologist's Impression: Chest X-Ray 10/30/23 14:29 XR chest 1V not portable HISTORY: 73 years-old Female Chest pain, nonspecific COMPARISON: 05/30/2023 TECHNIQUE: AP view of the chest FINDINGS: Cardiac silhouette is enlarged. Right IJ Qatend-k-Xgho catheter is unchanged. A loop recorder device. Unchanged mild right hemidiaphragmatic elevation. Surgical clips project over the epigastric tissues. Chronic interstitial coarsening. No pneumothorax, pleural effusion or lobar airspace consolidation. The bones appear grossly intact. IMPRESSION: 1. No acute process. 2. Cardiomegaly with chronic interstitial coarsening. ACT 112: Negative or not required by law. The above report was generated using voice recognition software. It may contain grammatical, syntax or spelling errors. Electronically signed by: Soham Kirby M.D. 10/30/2023 4:[address] 10/30/23 14:29 CT head/brain wo con CLINICAL HISTORY: 73 years-old Female with LESLIE. Acute headache TECHNIQUE: Multiple axial CT images of the head were obtained without contrast. A dose lowering technique was utilized adhering to the principles of ALARA. CT DOSE: 547.75 mGy.cm COMPARISON: 05/29/2023 FINDINGS: No acute intracranial hemorrhage, midline shift, intracranial mass, hydrocephalus, territorial ischemia or abnormal extra-axial collection. Involutional changes with probable chronic microvascular ischemic disease. The calvarium is intact. Mild mucoperiosteal thickening of the paranasal sinuses with chronic postoperative changes. Prior bilateral lens repair. Trace right mastoid effusion. IMPRESSION: No acute intracranial abnormality. ACT 112: Negative or not required by law. The above report was generated using voice recognition software. It may contain grammatical, syntax or spelling errors. Electronically signed by: Soham Kirby M.D. 10/30/2023 3:12 PM ECG Data Attestation: I personally reviewed and interpreted this ECG as follows: Indication: + chest pain, + nausea and + weakness Rate (beats per minute): 59 Rhythm: + sinus bradycardia ECG Intervals/blocks: + Normal QRS, + Normal QT and + Normal AL ECG Carson: + Normal ECG ST segments: + Normal ST segments ECG Findings: + LVH; no PACs or no PVCs Comparison ECG Date: from (may) Change: no significant change MDM Narrative This patient comes in as described above she has several different complaints including headache and chest pain. She looks well and has a normal neurologic exam her vital signs are stable. She has a complex medical history who workup was unremarkable with exception of potassium is extremely low at 2.5 .she has had issues with this before she has had no changes in her medication. She does have a a port in her chest for central venous access due to history of poor venous access. Chest x-ray does not show overt CHF shows no other acute electrolyte or metabolic abnormality. her troponin is mildly elevated 16 with follow-up troponin pending. She has had troponins elevated in the past as well. I do think she is to be admitted/observed . I have ordered 2 IV K riders to be started in the ED. [facility]. Continuous cardiac monitoring: Orders placed in EMR for continuous hospital monitor: Upon my evaluation patient noted to be sinus bradycardia with rate of 58. Impression & Plan Acute hypokalemia, Headache, Chest pain, Nausea Discharge Plan Visit Data Chief Complaint: Illness Stated Complaint: HEADACHE ED Provider: Stef Mckeon Discharge Problem: Acute hypokalemia, Headache, Chest pain, Nausea Discharge Problem: Headache Qualifiers: Headache type: unspecified Headache chronicity pattern: unspecified pattern I ntractability: not intractable Qualified Code(s): R51.9 - Headache, unspecified Chest pain Qualifiers: Chest pain type: other chest pain Qualified Code(s): R07.89 - Other chest pain
[2023-10-30 18:12] LABS: Magnesium 1.9 mg/dl (1.7-2.4)
[2023-10-30] MEDS: POTASSIUM CHLORIDE / WTR 10 MEQ/100 ML PLCT IV SCH ×4 (18:15→23:36)
--- NOTE | 2023-10-30 18:55 | History & Physical Report ---
Date of Service October 30, 2023 Assessment & Plan (1) Acute hypokalemia: Plan: Patient is 73-year-old female with PMH diastolic heart failure, hypothyroidism, sinus node dysfunction, history of gastric bypass, pancreatic insufficiency, chronic pain, neuropathy, sleep apnea, depression, and others listed below presented to ER with complaint of headache and muscle cramps. In ER afebrile, vitals stable. K: 2.5. Magnesium: 1.9. Troponin: 16.7 Likely secondary to chronic diuretic use, malabsorption In ER given 2 K riders, 40meq KCl Continue home potassium supplement Repeat BMP tonight Repeat troponin. BMP in am (2) Headache: Plan: Intermittent LESLIE x [address] head: no acute findings No focal deficits on exam Discussed trying to avoid medication overuse at home Saw neurology 10/26/23 and was recommended patient may try low dose magnesium supplementation Will hold vibegron currently as may be contributing to LESLIE also (3) Chronic diastolic (congestive) heart failure: Plan: Appears euvolemic Will hold torsemide, metolazone for now (4) Hypothyroidism: Plan: Continue levothyroxine TSH in am (5) Pancreatic insufficiency: Plan: History gastric bypass Prior history chronic diarrhea, now controlled Continue Creon, colesevelam (6) Neuropathy: Plan: Continue pregabalin (7) Sleep apnea: Plan: LARRY Previously on bipap but history noncompliance DVT Prophylaxis Lovenox SQ Full Code as per discussion with pt Follows with Dr Marx for routine care Pt was seen and care coordinated with Dr Mccullough. See addendum I spent a total of 77 minutes reviewing notes, outpatient records, labs, medication, coordinating, documenting and providing care for this patient excluding time spent in the performance of separately billed services. History of Present Illness Chief Complaint: Multiple medical complaints Primary Care Provider: Frederick Reynaga DO Patient is 73-year-old female with PMH diastolic heart failure, hypothyroidism, sinus node dysfunction, history of gastric bypass, pancreatic insufficiency, chronic pain, neuropathy, sleep apnea, depression, and others listed below presented to ER with complaint of headache and muscle cramps. History obtained from patient as well as inpatient and outpatient chart review. Patient reports has had intermittent headache for the past 6 weeks. She reports gets headaches almost daily and headaches are generalized. States last couple of days headaches have been daily and lasting all day. Patient reports has been using Tylenol 3 times daily sometimes with relief and sometimes without. She states intermittent blurry vision. Denies any current blurry vision. Does follow with neurology, recently seen 10/26/2023 and it was recommended patient reduce Tylenol use as concern for rebound headaches. Patient also reports has been having muscle cramps for 3 weeks. She reports chronic neuropathy which she feels is at baseline. Patient states that she has been having trouble sleeping however upon further discussion patient falls asleep at 7 PM and sleeps until 2 AM and then cannot fall back asleep. Patient reports chronic abdominal pain that has been ongoing for years. Denies any increased abdominal pain. Reports prior history of chronic diarrhea and states has been on Welchol with control of loose bowels. She denies any recent loose bowels. Denies any recent vomiting. Reports chronic rhinorrhea and denies any increase or sinus tenderness. Denies any recent medication changes. Denies chest pain to this provider. Reports drinks 48 ounces of water and 32-48 ounces diet Coke daily. Denies fever/chills, diaphoresis, dizziness, syncope, diplopia, vision loss, neck pain, increased SOB, palpitations, cough, sore throat, increased weakness, extremity edema, rashes, urinary symptoms. Ambulates with walker at baseline. In ER today was found to have K: 2.5 Allergies Allergy/AdvReac Type Severity Reaction Status Date / Time bethanechol Allergy Intermediate RASH, Verified 10/30/23 18:22 "FEELS FUNNY" Cephalosporins Allergy Intermediate RASH, Verified 10/30/23 18:22 DIARRHEA levofloxacin Allergy Intermediate RASH,TURNED Verified 10/30/23 18:22 RED Sulfa (Sulfonamide Allergy Intermediate Generalized Verified 10/30/23 18:22 Antibiotics) Rash ertapenem Allergy Mild RASH Verified 10/30/23 18:22 atropine Allergy Unknown ON [facility] MED Verified 10/30/23 18:22 LIST clindamycin Allergy Unknown Unknown Verified 10/30/23 18:22 dipyridamole Allergy Unknown PERSANTINE--ON Verified 10/30/23 18:22 [facility] MED LIST droperidol Allergy Unknown Unknown Verified 10/30/23 18:22 meperidine [From Demerol] Allergy Unknown ? ALLERGY Verified 10/30/23 18:22 ON [facility] MED LIST promethazine Allergy Unknown UNKNOWN Verified 10/30/23 18:22 tobramycin Allergy Unknown UNKNOWN Verified 10/30/23 18:22 aspirin AdvReac Severe BLEEDING Verified 10/30/23 18:22 doxycycline AdvReac Severe severe Verified 10/30/23 18:22 Diarrhea, nausea metolazone AdvReac Severe ELECTROLYTE Verified 10/30/23 18:22 ISSUES--HYPOKALEMIA bupropion AdvReac Intermediate NERVOUS Verified 10/30/23 18:22 REACTION cephalexin AdvReac Intermediate GI SYMPTOMS Verified 10/30/23 18:22 morphine AdvReac Intermediate NERVOUS Verified 10/30/23 18:22 REACTION TO IT nitrofurantoin AdvReac Intermediate Vomiting Verified 10/30/23 18:22 [From Macrobid] prochlorperazine AdvReac Intermediate NERVOUS Verified 10/30/23 18:22 REACTION tedizolid AdvReac Intermediate GI SYMPTOMS Verified 10/30/23 18:22 venlafaxine [From Effexor] AdvReac Intermediate NERVOUS Verified 10/30/23 18:22 REACTION lamotrigine AdvReac Unknown tremors Verified 10/30/23 18:22 Home Medications Medication Instructions Recorded Confirmed Type colesevelam 625 mg tablet (WelChol) 625 mg PO TID 06/17/18 10/30/23 History montelukast 10 mg tablet 10 mg PO HS 06/17/18 10/30/23 History (Singulair) ipratropium 0.5 mg-albuterol 3 mg 3 ml inhalation Q4H PRN Shortness 05/05/19 10/30/23 History (2.5 mg base)/3 mL nebulization Of Breath Or Wheezing soln bpvtuq-pmtilqjj-auxqhtg 4 cap PO TID 05/05/19 10/30/23 History 24,000-76,000-120,000 unit capsule,delayed rel (Creon) omeprazole magnesium 20 mg 20 mg PO BID 05/17/19 10/30/23 History tablet,delayed release (Prilosec OTC) risperidone 2 mg tablet 2 mg PO HS 02/27/21 10/30/23 History metolazone 2.5 mg tablet 2.5 mg PO WK 11/15/22 10/30/23 History oxycodone-acetaminophen 5 mg-325 1 tab PO Q6H PRN Pain 11/15/22 10/30/23 History mg tablet (Percocet) ropinirole 0.5 mg tablet 0.5 mg PO HS 11/15/22 10/30/23 History valacyclovir 500 mg tablet 500 mg PO QAM 11/15/22 10/30/23 History calcitriol 0.5 mcg capsule 0.5 mcg PO BID #60 caps 12/21/22 10/30/23 Rx albuterol sulfate 90 mcg/actuation 2 inh inhalation Q6H PRN Shortness 02/03/23 10/30/23 Rx breath activated powder inhaler Of Breath Or Wheezing #1 ea levothyroxine 88 mcg tablet 88 mcg PO QAM #30 tabs 05/21/23 10/30/23 Rx cyanocobalamin (vitamin B-12) 1,000 mcg PO DAILY 05/24/23 10/30/23 History 1,000 mcg tablet (Vitamin B-12) nitroglycerin 0.4 mg sublingual 0.4 mg sublingual DIRECTED PRN 05/24/23 10/30/23 History tablet (Nitrostat) Chest Pain cetirizine 10 mg tablet 10 mg PO DAILY 05/29/23 10/30/23 History duloxetine 60 mg capsule,delayed 60 mg PO QAM #30 caps 06/04/23 10/30/23 Rx release torsemide 20 mg tablet 20 mg PO BID 06/24/23 10/30/23 History calcium carbonate 600 mg calcium 1,200 mg PO TID 07/22/23 10/30/23 History (1,500 mg) tablet (Calcium) denosumab 60 mg/mL subcutaneous 60 mg subcut Q180D #1 mL 07/22/23 10/30/23 Rx syringe (Prolia) pregabalin 100 mg capsule 100 mg PO TID 30 days #90 caps 08/17/23 10/30/23 Rx potassium chloride 20 mEq 20 meq PO BID #180 tabs 08/19/23 10/30/23 Rx tablet,extended release vibegron 75 mg tablet (Gemtesa) 75 mg PO DAILY #90 tabs 10/13/23 10/30/23 Rx fluticasone furoate 200 1 inh inhalation DAILY 10/30/23 10/30/23 History mcg-vilanterol 25 mcg/dose inhalation powder (Breo Ellipta) qeemrnhrpmom-ttcjycee-yzfdyt tablet 1 tab PO DAILY 10/30/23 10/30/23 History potassium citrate 15 mEq (1,620 15 meq PO BID 10/30/23 10/30/23 History mg) tablet,extended release rosuvastatin 10 mg tablet 10 mg PO QAM 10/30/23 10/30/23 History Past Med/Surg History Medical History (Updated 10/30/23 @ 21:10 by Verona Templeton PA-C) Neuropathy Bronchiectasis ILD (interstitial lung disease) Recurrent major depression in remission History of DVT (deep vein thrombosis) Pacemaker [employer], implanted 12/2022 (bradycardia) Right rotator cuff tear Osteoporosis Nocturnal hypoxemia Osteoarthritis of left knee Kidney stones LARRY treated with BiPAP Junctional bradycardia Hypothyroidism Secondary hyperparathyroidism Pulmonary hypertension mild per 07/[address] report Atherosclerosis of both lower extremities Chronic kidney disease stage 3b GERD without esophagitis COPD (chronic obstructive pulmonary disease) "Well controlled" History of anemia Lumbar transverse process fracture Pt reports lower back detioriating - can't lie flat/sleep on a chair Pulmonary nodule seen on imaging study Reactive hypoglycemia Vitamin D deficiency Wrist injury Scar tissue surrounding remote wrist ORIF several years ago resulting in intermittent inflammation per pt Bilateral nephrolithiasis H/O concussion Remote hx "a long time ago" Incisional hernia Abdominal (from multiple surgeries/feeding tube) Obesity Sepsis 05/2020 @ [facility], urosepsis 2/2 obstructing renal stone, S/P cysto/stent and ESWL Chronic urinary tract infection Sleep apnea complex sleep apnea, BIPAP (non-compliant) Hyperlipidemia per records Complex sleep apnea syndrome Chronic venous insufficiency Chronic sinusitis Pancreatic insufficiency chronic pancreatitis Peripheral neuropathy MRSA (methicillin resistant staph aureus) culture positive Hx (Left wrist) Had 3 nasal swab and all negative (through [facility] per pt) Port-A-Cath in place right side due to poor vascular access Urinary leakage PUD (peptic ulcer disease) Had feeding tube for 28 years (has been removed for 11 years) Depression Asthma Peripheral neuropathy Lumbar stenosis Chronic diastolic (congestive) heart failure Follows with [facility] cardiology Short bowel syndrome Fall PVC (premature ventricular contraction) Pernicious anemia (08/08/13) Surgical History History of esophageal dilatation History of cystoscopy multiple H/O shoulder surgery RT arthroscopy 05/28/2021: LMA#4 atraumatic x 1 + PNB. Anesthesia postop progress note: "Pt denies SOB at this time. Block is functioning well. Vital signs stable and appropriate. Oxygenating well considering block placement and her comorbidities. Plan to discharge home with IS." S/P right rotator cuff repair S/P ureteral stent placement Status post laser lithotripsy of ureteral calculus History of prior ablation treatment Right LE in January 2020 and left LE 04/18/20 History of partial gastrectomy History of sinus surgery History of tonsillectomy and adenoidectomy History of total abdominal hysterectomy and bilateral salpingo-oophorectomy History of cholecystectomy History of appendectomy History of open reduction and internal fixation (ORIF) procedure left wrist + manipulation (01/2018) and I&D (10/2019) History of joint replacement Rt thumb History of knee replacement procedure of right knee History of esophagogastroduodenoscopy (EGD) History of colonoscopy History of gastrointestinal surgery multiple History of cardiac cath 08/2019 ([facility])- essentially normal coronary arteries angiographically, no stents Family History Mother Family history of diabetes mellitus Sister Family history of diabetes mellitus Family history of breast cancer Father Esophageal cancer Other Family history non-contributory No family history of adverse response to anesthesia Social History Smoking Status: Never smoker Second Hand Exposure: No; Do You Dip or Chew Tobacco: No; Hx Alcohol Use: No Hx Substance Use: No Preferred Language: Marshallese Communication Ability: Effective Visual Impairment: No Limitations [employer] Required: No Beliefs That Will Affect Care: None marital status: Single Current Living Situation: Personal Care Facility Current Living Situation Comment: apartment behind snf facility How many Children do You have: 0 Feels Safe at Home: Yes Assistive Devices: Walker Review of Systems Review of Systems: All systems reviewed & are unremarkable except as noted in HPI & below Physical Exam Physical Exam: General: no acute distress, obese Head: normocephalic, atraumatic Eyes: PERRL, EOM's intact, conjunctiva non-injected, anicteric ENT: normal inspection external ears, nose, mucous membranes moist Neck: supple, trachea midline Lungs: clear, no respiratory distress, no wheezing/rhonchi/rales CV: RRR, no pretibial edema Abd: protuberant, normal BS, soft, non-tender to palpation Ext: no cyanosis, no calf tenderness Neuro: A&O x 3, no focal deficits noted, flat affect Skin: warm, dry Results & Data Results & Data Vital Signs (Past 12 Hours) Vital Signs Temp Pulse Resp BP Pulse Ox O2 Del Method 10/30/23 14:27 36.5 C 62 20 121/72 97 Room Air Laboratory Results Short CBC 10/30/23 Range/Units 15:30 WBC 5.48 (4.8-10.8) K/ul Hgb 12.7 (12.0-16.0) g/dl Hct 38.0 (37.0-47.0) % Plt Count 214 (130-400) K/uL BMP 10/30/23 15:30 Sodium 135 L Potassium 2.5 L* Chloride 93 L Carbon Dioxide 33 H BUN 37 H Creatinine 0.98 Glucose 96 Calcium 9.5 Liver Function 10/30/23 Range/Units 15:30 Total Bilirubin 0.5 (0.2-1.0) mg/dl AST 20 (13-39) U/L ALT 18 (7-52) U/L Alkaline Phosphatase 72 (34-104) U/L Albumin 4.1 (3.4-5.0) gm/dl Diagnostic Findings Chest X-Ray 10/30/23 14:29 XR chest 1V not portable HISTORY: 73 years-old Female Chest pain, nonspecific COMPARISON: 05/30/2023 TECHNIQUE: AP view of the chest FINDINGS: Cardiac silhouette is enlarged. Right IJ Wwdbsk-e-Dpdp catheter is unchanged. A loop recorder device. Unchanged mild right hemidiaphragmatic elevation. Surgical clips project over the epigastric tissues. Chronic interstitial coarsening. No pneumothorax, pleural effusion or lobar airspace consolidation. The bones appear grossly intact. IMPRESSION: 1. No acute process. 2. Cardiomegaly with chronic interstitial coarsening. ACT 112: Negative or not required by law. The above report was generated using voice recognition software. It may contain grammatical, syntax or spelling errors. Electronically signed by: Soham Kirby M.D. 10/30/2023 4:[address] 10/30/23 14:29 CT head/brain wo con CLINICAL HISTORY: 73 years-old Female with LESLIE. Acute headache TECHNIQUE: Multiple axial CT images of the head were obtained without contrast. A dose lowering technique was utilized adhering to the principles of ALARA. CT DOSE: 547.75 mGy.cm COMPARISON: 05/29/2023 FINDINGS: No acute intracranial hemorrhage, midline shift, intracranial mass, hydrocephalus, territorial ischemia or abnormal extra-axial collection. Involutional changes with probable chronic microvascular ischemic disease. The calvarium is intact. Mild mucoperiosteal thickening of the paranasal sinuses with chronic postoperative changes. Prior bilateral lens repair. Trace right mastoid effusion. IMPRESSION: No acute intracranial abnormality. ACT 112: Negative or not required by law. The above report was generated using voice recognition software. It may contain grammatical, syntax or spelling errors. Electronically signed by: Soham Kirby M.D. 10/30/2023 3:12 PM ECG Additional Comments: Sinus bradycardia. Left ventricular hypertrophy with repolarization abnormality Supervising Physician Co-Signing Physician Notes I have seen and examined the patient and have discussed the case with the provider above. I agree with the assessment and plan as stated. 73 yo F with multiple chronic medical problems presents with a LESLIE x 6 weeks. She takes Tylenol at home but no improvement. She has seen neurology as noted above. She has some queasiness and doesnt feel well generally. K is 2.5mg on torsemide therapy twice daily. Although she takes potassium supplementation, she has lost a significant portion of her stomach and small intestine over the years and has short gut syndrome. She may not be absorbing her medication well, as a result. Physical exam reveals a chronically unwell female in NAD. She has no clear neurologic deficits on exam and is mentating clearly. Pupils are round and equal bilaterally. She appears euvolemic. Cardiac exam reveal reg rate and rhythm with 3/6 BUTCH across precordium. Abdomen is soft, NTND with a significant amount of scar tissue in the central periumbilical area, and multiple port sites that are scarred down, also. Workup as noted above, all results were reviewed. Agree with plan to replace potassium and treat her headache pain. Tylenol, Pepcid and zofram ordered in the ER. Once replaced would look to discharge her home with close followup with primary care and repeat of her potassium. She sees multiple specialists in the area and is followed closely by them . DO Jamel (2) Headache Headache chronicity pattern: unspecified pattern Headache type: unspecified Intractability: not intractable Qualified Code(s): R51.9 - Headache, unspecified
[2023-10-30] MEDS ORDERED: ACETAMINOPHEN 1,000 MG/100 ML VIAL IV STA (19:03)
[2023-10-30] MEDS ORDERED: FAMOTIDINE SUSP 20 MG/2.5 ML UDP PO STA (19:51)
[2023-10-30] MEDS ORDERED: ONDANSETRON INJ 2 MG/ML 2 ML VIAL IV STA (19:53)
[2023-10-30] MEDS ORDERED: FAMOTIDINE 40 MG/5 ML 50ML BTL PO ONE (20:30)
[2023-10-30] MEDS ORDERED: POLYETHYLENE (MIRALAX) 17 GM PACK PO PRN (22:19)
[2023-10-30] MEDS ORDERED: ONDANSETRON INJ 2 MG/ML 2 ML VIAL IV PRN (22:19)
[2023-10-30] MEDS: Patient's HEIGHT &/or WEIGHT Needed SCH ×4 (22:23→23:35)
[2023-10-30 23:02] LABS: BUN Creatinine Ratio 38.5 (10-20); Calcium 9.3 mg/dl (8.6-10.3); Creatinine Clr Calc Pharmacy 51.6 ml/min; Est GFR (Non-African American) 59.5 ml/min; Potassium 3.1 mmol/L (3.5-5.1)
[2023-10-30] MEDS ORDERED: ONDANSETRON INJ 2 MG/ML 2 ML VIAL ONE (23:13)
[2023-10-30] MEDS: MONTELUKAST SODIUM 10 MG TABLET PO SCH (23:22)
[2023-10-30] MEDS: CALCITRIOL 0.25 MCG CAPSULE PO SCH (23:22)
[2023-10-30] MEDS: PREGABALIN 100 MG CAP PO SCH (23:22)
[2023-10-30] MEDS: rOPINIRole HCL 0.25 MG TABLET PO SCH (23:22)
[2023-10-30] MEDS: oxyCODONE/ACETAMINOPHEN 5mg/325mg TAB PO PRN (23:23)
[2023-10-30] MEDS: risperiDONE 2 MG TABLET PO SCH (23:23)
[2023-10-30] MEDS: PANTOprazole 40 MG TAB PO SCH (23:24)
[2023-10-30] MEDS ORDERED: ALBUTEROL HFA 8 GM INHALER INH PRN (23:31)
[2023-10-31] MEDS ORDERED: POTASSIUM CHLORIDE CRTAB 20 MEQ TABCR PO STA (00:33)
[2023-10-31] MEDS ORDERED: MAGNESIUM SULFATE / D5W 1 GM/100 ML BAG IV ONE (00:34)
[2023-10-31] MEDS: POTASSIUM CHLORIDE / WTR 10 MEQ/100 ML PLCT IV SCH (00:36)
[2023-10-31] MEDS: LEVOTHYROXINE SODIUM 88 MCG TABLET PO SCH (06:14)
[2023-10-31] MEDS: oxyCODONE/ACETAMINOPHEN 5mg/325mg TAB PO PRN ×2 (06:14→13:08)
[2023-10-31] MEDS: HEPARIN 100 UNIT/ML 5ML FLUSH FLUSH PRN (06:15)
[2023-10-31] MEDS: ENOXAPARIN INJ 40 MG/0.4 ML SYR SQ SCH (06:15)
[2023-10-31 06:37] LABS: Hematocrit (blood only) 36.3 % (37.0-47.0); Mean Corpuscular Hemoglobin 28.8 pg (25.0-34.0); Mean Corpuscular Hgb Conc 33.1 g/dL (32.0-36.0); Mean Corpuscular Volume 87.1 fL (80.0-100.0); Mean Platelet Volume 9.9 fL (9.4-12.4); Platelet Count 187 K/uL (130-400); RDW Standard Deviation 48.1 fL (36.4-46.3); Red Blood Count 4.17 M/uL (4.20-5.40); White Blood Count 4.92 K/ul (4.8-10.8)
[2023-10-31 06:57] LABS: BUN Creatinine Ratio 36.6 (10-20); Calcium 9.3 mg/dl (8.6-10.3); Creatinine Clr Calc Pharmacy 52.5 ml/min; Est GFR (African American) 71.7 ml/min; Est GFR (Non-African American) 61.8 ml/min; Potassium 3.9 mmol/L (3.5-5.1)
[2023-10-31 07:10] LABS: Thyroid Stimulating Hormone 1.438 uIu/ml (0.300-4.500)
[2023-10-31] MEDS: FLUTICASONE/VILANTEROL 200/25MCG 14 PUFFS/INHALER INH SCH (08:34)
[2023-10-31] MEDS: PANCREAZE (LIPASE 16,800U) CAP PO SCH ×3 (08:34→18:48)
[2023-10-31] MEDS: ROSUVASTATIN CALCIUM 10 MG TAB PO SCH (08:35)
[2023-10-31] MEDS: CALCITRIOL 0.25 MCG CAPSULE PO SCH ×2 (08:35→20:30)
[2023-10-31] MEDS: PREGABALIN 100 MG CAP PO SCH ×3 (08:36→20:27)
[2023-10-31] MEDS: ACETAMINOPHEN 325 MG TAB PO PRN ×2 (08:37→20:27)
[2023-10-31] MEDS: POTASSIUM CHLORIDE CRTAB 20 MEQ TABCR PO SCH ×2 (08:38→20:29)
[2023-10-31] MEDS: CYANOCOBALAMIN (B-12) 500 MCG TABLET PO SCH (08:38)
[2023-10-31] MEDS: CETIRIZINE HCL 10 MG TABLET PO SCH (08:38)
[2023-10-31] MEDS: valACYclovir HCL 500 MG TABLET PO SCH (08:39)
[2023-10-31] MEDS: DULoxetine HCL 60 MG CAP PO SCH (08:39)
[2023-10-31] MEDS: PANTOprazole 40 MG TAB PO SCH ×2 (08:40→20:28)
[2023-10-31] MEDS: CALCIUM CARBONATE 500 MG CHEWABLE TAB PO SCH ×3 (08:40→20:28)
[2023-10-31] MEDS ORDERED: NON-FORMULARY MEDICATION (Potassium Citrate 15 mEq tablet extended release) PO SCH (09:00)
--- NOTE | 2023-10-31 10:26 | Electrocardiogram Report ---
Test Reason : Blood Pressure : / mmHG Vent. Rate : 056 BPM Atrial Rate : 056 BPM P-R Int : 202 ms QRS Dur : 108 ms QT Int : 448 ms P-R-T Axes : 047 -24 005 degrees QTc Int : 432 ms Sinus bradycardia Voltage criteria for left ventricular hypertrophy Nonspecific T wave abnormality Abnormal ECG When compared with ECG of 30-OCT-2023 15:17, T wave inversion now evident in Inferior leads T wave inversion less evident in Lateral leads Confirmed by Boby Nevarez ([id number]) on 10/31/2023 10:25:31 AM Referred By: REFERRED SELF Confirmed By:Boby Nevarez
[2023-10-31 13:58] LABS: Appearance Urine Cloudy (Clear); Bilirubin Urine Negative (Negative); Blood Urine 2+ (Negative); Color Urine Yellow; Glucose Urine UA Negative (Negative); Ketones Urine Negative (Negative); Leukocyte Esterase Urine 3+ (Negative); Nitrite Urine Negative (Negative); Protein Urine 1+ (Negative); Specific Gravity Urine 1.015 (1.000-1.030); Urobilinogen Urine Negative (Negative)
[2023-10-31 14:05] LABS: Epithelial Cell Urine 0-5 /lpf (0-5)
[2023-10-31 14:06] LABS: Bacteria Urine 2+ (Negative); WBC Urine >30 /hpf (0-5)
--- NOTE | 2023-10-31 14:41 | Hospitalist Progress Note ---
Date of Service October 31, 2023 Assessment & Plan (1) Acute hypokalemia: Plan: Patient is 73-year-old female with PMH diastolic heart failure, hypothyroidism, sinus node dysfunction, history of gastric bypass, pancreatic insufficiency, chronic pain, neuropathy, sleep apnea, depression, and others listed below presented to ER with complaint of headache and muscle cramps. In ER afebrile, vitals stable. K: 2.5. Magnesium: 1.9. Troponin: 16.7 Likely secondary to chronic diuretic use, Potassium repleted; 3.9 mmol/L today. Continue home potassium supplement Repeat BMP in AM. (2) Headache: Plan: Intermittent LESLIE x [address] head: no acute findings No focal deficits on exam Discussed trying to avoid medication overuse at home Saw neurology 10/26/23 and was recommended patient may try low dose magnesium supplementation Will hold vibegron currently as may be contributing to LESLIE also Discussed regarding obtaining MRI as patient has persistent headache. As per MRI department; since patient has pacemakerit can only be done on Thursday. (3) Chronic diastolic (congestive) heart failure: Plan: Appears euvolemic Resume torsemide. Metolazone on hold. (4) Acute UTI: Plan: Patient reports increasing frequency urgency. Urinalysis suggestive of infection. Started on ceftriaxone. (5) Hypothyroidism: Plan: Continue levothyroxine TSH within normal range. (6) Pancreatic insufficiency: Plan: History gastric bypass Prior history chronic diarrhea, now controlled Continue Creon, colesevelam (7) Neuropathy: Plan: Continue pregabalin (8) Sleep apnea: Plan: LARRY Previously on bipap but history noncompliance DVT Prophylaxis Lovenox SQ Full Code as per discussion with pt Follows with Dr Marx for routine care Please note the above document was generated using voice recognition software. It may contain grammatical, syntax or spelling errors. Any formal questions or concerns about the content, text or information contained within the body of t his dictation should be directly addressed to the provider for clarification Admission and Anticipated Discharge Date Admission Date: October 30, 2023 Subjective Patient seen and examined at bedside. She is comfortably sitting up on the chair at the side of the bed; not in distress. She reports continuous headache. She denies visual changes, dizziness, weakness/numbness of any body part. Review of Systems Review of Systems: All systems reviewed & are unremarkable except as noted in Subjective Physical Exam Physical Exam: General: no acute distress, obese Head: normocephalic, atraumatic Eyes: PERRL, EOM's intact, conjunctiva non-injected, anicteric ENT: normal inspection external ears, nose, mucous membranes moist Neck: supple, trachea midline Lungs: clear, no respiratory distress, no wheezing/rhonchi/rales CV: RRR, no pretibial edema Abd: protuberant, normal BS, soft, non-tender to palpation Ext: no cyanosis, no calf tenderness Neuro: A&O x 3, no focal deficits noted, flat affect Skin: warm, dry Results & Data Results & Data Vital Signs (Past 12 Hours) Vital Signs Temp Pulse Resp BP Pulse Ox O2 Del Method 10/31/23 11:47 36.5 C 56 L 18 98/62 L 97 Room Air 10/31/23 07:41 36.4 C L 60 18 117/74 98 Room Air 10/31/23 03:25 36.6 C 54 L 20 113/70 93 Room Air (2) Headache Headache chronicity pattern: unspecified pattern Headache type: unspecified Intractability: not intractable Qualified Code(s): R51.9 - Headache, unspecified
[2023-10-31] MEDS: cefTRIAXone SODIUM 2,000 MG in DEXTROSE 5 % MINI-B 50 ML IV SCH (15:35)
[2023-10-31] MEDS: TORSEMIDE 20 MG TAB PO SCH (18:47)
[2023-10-31] MEDS: rOPINIRole HCL 0.25 MG TABLET PO SCH (20:29)
[2023-10-31] MEDS: risperiDONE 2 MG TABLET PO SCH (20:29)
[2023-10-31] MEDS: MONTELUKAST SODIUM 10 MG TABLET PO SCH (20:29)
[2023-11-01] MEDS: oxyCODONE/ACETAMINOPHEN 5mg/325mg TAB PO PRN ×3 (02:47→22:36)
[2023-11-01] MEDS: LEVOTHYROXINE SODIUM 88 MCG TABLET PO SCH (05:33)
[2023-11-01] MEDS: HEPARIN 100 UNIT/ML 5ML FLUSH FLUSH PRN (05:33)
[2023-11-01] MEDS: ENOXAPARIN INJ 40 MG/0.4 ML SYR SQ SCH (05:33)
[2023-11-01] MEDS: ACETAMINOPHEN 325 MG TAB PO PRN ×2 (05:34→14:47)
[2023-11-01 06:28] LABS: Basophils # (auto) 0.06 K/uL (0.00-0.20); Eosinophils # (auto) 0.21 K/uL (0.00-0.50); Eosinophils % (auto) 3.3 %; Hematocrit (blood only) 40.3 % (37.0-47.0); Hemoglobin 13.2 g/dl (12.0-16.0); Immature Granulocytes # (auto) 0.01 K/uL (0.01-0.20); Immature Granulocytes % (auto) 0.2 %; Lymphocytes # (auto) 0.96 K/uL (1.20-3.40); Lymphocytes % (auto) 15.2 %; Mean Corpuscular Hemoglobin 28.6 pg (25.0-34.0); Mean Corpuscular Hgb Conc 32.8 g/dL (32.0-36.0); Mean Corpuscular Volume 87.2 fL (80.0-100.0); Mean Platelet Volume 10.5 fL (9.4-12.4); Monocytes # (auto) 0.74 K/uL (0.11-0.59); Monocytes % (auto) 11.7 %; Neutrophils # (auto) 4.33 K/uL (1.40-6.50); Neutrophils % (auto) 68.6 %; Platelet Count 213 K/uL (130-400); RDW Coefficient of Variation 15.5 % (11.5-14.5); RDW Standard Deviation 49.1 fL (36.4-46.3); Red Blood Count 4.62 M/uL (4.20-5.40); White Blood Count 6.31 K/ul (4.8-10.8)
[2023-11-01 06:52] LABS: BUN Creatinine Ratio 37.6 (10-20); Calcium 9.9 mg/dl (8.6-10.3); Creatinine Clr Calc Pharmacy 44.9 ml/min; Est GFR (African American) 59.1 ml/min; Potassium 3.7 mmol/L (3.5-5.1)
[2023-11-01] MEDS: PANCREAZE (LIPASE 16,800U) CAP PO SCH ×3 (08:58→18:05)
[2023-11-01] MEDS: TORSEMIDE 20 MG TAB PO SCH ×2 (08:59→18:04)
[2023-11-01] MEDS: CALCITRIOL 0.25 MCG CAPSULE PO SCH ×2 (08:59→20:45)
[2023-11-01] MEDS: CETIRIZINE HCL 10 MG TABLET PO SCH (08:59)
[2023-11-01] MEDS: FLUTICASONE/VILANTEROL 200/25MCG 14 PUFFS/INHALER INH SCH (09:00)
[2023-11-01] MEDS: ROSUVASTATIN CALCIUM 10 MG TAB PO SCH (09:00)
[2023-11-01] MEDS: PREGABALIN 100 MG CAP PO SCH ×3 (09:00→20:43)
[2023-11-01] MEDS: POTASSIUM CHLORIDE CRTAB 20 MEQ TABCR PO SCH ×2 (09:00→20:44)
[2023-11-01] MEDS: DULoxetine HCL 60 MG CAP PO SCH (09:01)
[2023-11-01] MEDS: PANTOprazole 40 MG TAB PO SCH ×2 (09:01→20:44)
[2023-11-01] MEDS: CYANOCOBALAMIN (B-12) 500 MCG TABLET PO SCH (09:01)
[2023-11-01] MEDS: valACYclovir HCL 500 MG TABLET PO SCH (09:02)
[2023-11-01] MEDS: CALCIUM CARBONATE 500 MG CHEWABLE TAB PO SCH ×3 (09:03→20:43)
--- NOTE | 2023-11-01 14:22 | Hospitalist Progress Note ---
Date of Service November 01, 2023 Assessment & Plan (1) Acute hypokalemia: Plan: Patient is 73-year-old female with PMH diastolic heart failure, hypothyroidism, sinus node dysfunction, history of gastric bypass, pancreatic insufficiency, chronic pain, neuropathy, sleep apnea, depression, and others listed below presented to ER with complaint of headache and muscle cramps. In ER afebrile, vitals stable. K: 2.5. Magnesium: 1.9. Troponin: 16.7 Likely secondary to chronic diuretic use, Potassium repleted; Continue home potassium supplement Repeat BMP in AM. (2) Headache: Plan: Intermittent LESLIE x [address] head: no acute findings No focal deficits on exam Discussed trying to avoid medication overuse at home Saw neurology 10/26/23 and was recommended patient may try low dose magnesium supplementation Will hold vibegron currently as may be contributing to LESLIE also Discussed regarding obtaining MRI as patient has persistent headache. As per MRI department; since patient has pacemakerit can only be done on Thursday. Neurology reevaluation for severe headache. (3) Chronic diastolic (congestive) heart failure: Plan: Appears euvolemic Resume torsemide. Metolazone on hold. (4) Acute UTI: Plan: Patient reports increasing frequency urgency. Urinalysis suggestive of infection. Urine culture growing E. coli Started on ceftriaxone. Follow-up on final culture and sensitivity (5) Hypothyroidism: Plan: Continue levothyroxine TSH within normal range. (6) Pancreatic insufficiency: Plan: History gastric bypass Prior history chronic diarrhea, now controlled Continue Creon, colesevelam (7) Neuropathy: Plan: Continue pregabalin (8) Sleep apnea: Plan: LARRY Previously on bipap but history noncompliance DVT Prophylaxis Lovenox SQ Full Code as per discussion with pt Follows with Dr Marx for routine care Please note the above document was generated using voice recognition software. It may contain grammatical, syntax or spelling errors. Any formal questions or concerns about the content, text or information contained within the body of this dictation should be directly addressed to the provider for clarification Admission and Anticipated Discharge Date Admission Date: October 30, 2023 Subjective Patient seen and examined at bedside. She reports constant headache. No complaints of visual disturbances, weakness/numbness of any body part. Review of Systems Review of Systems: All systems reviewed & are unremarkable except as noted in Subjective Physical Exam Physical Exam: General: no acute distress, obese Head: normocephalic, atraumatic Eyes: PERRL, EOM's intact, conjunctiva non-injected, anicteric ENT: normal inspection external ears, nose, mucous membranes moist Neck: supple, trachea midline Lungs: clear, no respiratory distress, no wheezing/rhonchi/rales CV: RRR, no pretibial edema Abd: protuberant, normal BS, soft, non-tender to palpation Ext: no cyanosis, no calf tenderness Neuro: A&O x 3, no focal deficits noted, flat affect Skin: warm, dry Results & Data Results & Data Vital Signs (Past 12 Hours) Vital Signs Temp Pulse Resp BP Pulse Ox O2 Del Method 11/01/23 11:58 36.3 C L 72 18 96/63 L 95 Room Air 11/01/23 08:17 36.4 C L 68 18 105/69 94 Room Air 11/01/23 02:50 36.6 C 69 20 125/78 94 Room Air (2) Headache Headache chronicity pattern: unspecified pattern Headache type: unspecified Intractability: not intractable Qualified Code(s): R51.9 - Headache, unspecified
[2023-11-01] MEDS: cefTRIAXone SODIUM 2,000 MG in DEXTROSE 5 % MINI-B 50 ML IV SCH (14:47)
--- NOTE | 2023-11-01 15:37 | Neurology Consultation ---
Date of Consultation November 01, 2023 Assessment & Plan (1) Headache: Plan 73 y/o female with history of ILD, neuropathy, obesity, GERD, hypothyroidism, asthma, heart failure, pancreatic insufficiency, and complex sleep apnea that presented with headache and muscle cramps and found to have hypokalemia and UTI. Pt with 6-8 week history of headache, and while this has been occurring less than 3 months, she has been taking acetaminophen frequently which can contribute to the development of medication overuse headaches. Current headache with minimal migrainous features. Would recommend beginning to taper acetaminophen use. For abortive therapy, could attempt a dose of ketorolac if felt to be acceptable per primary or dexamethasone taper as 4mg TID X 1 day, then 4mg bid X 1 day, and then 4 mg daily X 1 day. Would also consider initiation of topirimate 25 mg bid for headache prophylaxis if no contraindications as lamictal discontinued by patient. Additionally, would obtain MRI brain w/wo contrast and MRV/MRA head. She would also benefit from outpatient sleep medicine follow-up and outpatient follow-up with neurology. Recommend ensuring adequate sleep and hydration. Telehealth Consultation Telehealth Information Telehealth Information: I performed this visit using a real-time telehealth connection between my location and the patients location ([facility]). After connecting through interactive tele-video, patient was identified by name and date of and/or wristband check.Patient (or authorized healthcare solar sales representative) was informed that this was a telemedicine visit and it was being conducted confidentially over secure lines. My office door was closed and no one else was present in the room with me.Patient (or authorized healthcare solar sales representative) provided consent to proceed with the visit, expressed an understanding of privacy and security of the telemedicine visit, and gave permission to have a hospital solar sales representative in the room in order to assist with the visit and to conduct portions of the visit, as needed. I informed the patient (or authorized healthcare solar sales representative) that I reviewed their record and presented the opportunity for them to ask any questions regarding the visit today. The patient agreed to participate. History of Present Illness Reason for Consultation: persistent headache Requesting Physician: Dr. Souleymane Rodarte Attending Physician: Souleymane Rodarte MD History of Present Illness 73 y/o female that presents with headache and muscle cramps. She states that for the last 6-8 weeks, she has had a headache. Prior to this, she would get headaches every three to four months. She describes these headaches as dull frontal headaches, not associated with photophobia, phonphobia, or nausea. She states that several weeks ago, she woke up with a holocephalic headache, which she describes as mostly pressure like, but occasionally throbbing. She states that she has sometimes been woken up during the night with this headache. Her headache has persisted throughout the last 6-8 weeks. She denies any alleviating or aggravating factors. The headache is not affected by position changes. There is no associated photophobia or phonophobia. She states that she has been taking percocet and tylenol for abortive therapy, with not much improvement. She had been taking tylenol every day a few times a day and reports taking the percocet once every few days. She was seen by neurology on 10/26 and she was recommended to start magnesium and increase lamictal to 25 mg qm and 50 mg qhs . She did start magnesium but this was not beneficial. She stopped taking the lamictal because it was making her shake. On review of the chart, overuse headache due to tylenol was recommended and reducing tylenol was discussed but the patient states she was unaware of this. She feels she has mild generalized weakness but denies any focal weakness. She has chronic numbness in her feet. Since she has had the headache, she has felt that her vision was intermittently blurry. She denies any new numbness/tingling, vision loss, diplopia, or speech changes. She uses a walker at home for ambulation and she feels that she staggers when she walks, which has been ongoing for two years. Allergies Allergy/AdvReac Type Severity Reaction Status Date / Time bethanechol Allergy Intermediate RASH, Verified 10/30/23 18:22 "FEELS FUNNY" Cephalosporins Allergy Intermediate RASH, Verified 10/30/23 18:22 DIARRHEA levofloxacin Allergy Intermediate RASH,TURNED Verified 10/30/23 18:22 RED Sulfa (Sulfonamide Allergy Intermediate Generalized Verified 10/30/23 18:22 Antibiotics) Rash ertapenem Allergy Mild RASH Verified 10/30/23 18:22 atropine Allergy Unknown ON [facility] MED Verified 10/30/23 18:22 LIST clindamycin Allergy Unknown Unknown Verified 10/30/23 18:22 dipyridamole Allergy Unknown PERSANTINE--ON Verified 10/30/23 18:22 [facility] MED LIST droperidol Allergy Unknown Unknown Verified 10/30/23 18:22 meperidine [From Demerol] Allergy Unknown ? ALLERGY Verified 10/30/23 18:22 ON [facility] MED LIST promethazine Allergy Unknown UNKNOWN Verified 10/30/23 18:22 tobramycin Allergy Unknown UNKNOWN Verified 10/30/23 18:22 aspirin AdvReac Severe BLEEDING Verified 10/30/23 18:22 doxycycline AdvReac Severe severe Verified 10/30/23 18:22 Diarrhea, nausea metolazone AdvReac Severe ELECTROLYTE Verified 10/30/23 18:22 ISSUES--HYPOKALEMIA bupropion AdvReac Intermediate NERVOUS Verified 10/30/23 18:22 REACTION cephalexin AdvReac Intermediate GI SYMPTOMS Verified 10/30/23 18:22 morphine AdvReac Intermediate NERVOUS Verified 10/30/23 18:22 REACTION TO IT nitrofurantoin AdvReac Intermediate Vomiting Verified 10/30/23 18:22 [From Macrobid] prochlorperazine AdvReac Intermediate NERVOUS Verified 10/30/23 18:22 REACTION tedizolid AdvReac Intermediate GI SYMPTOMS Verified 10/30/23 18:22 venlafaxine [From Effexor] AdvReac Intermediate NERVOUS Verified 10/30/23 18:22 REACTION lamotrigine AdvReac Unknown tremors Verified 10/30/23 18:22 Home Medications Medication Instructions Recorded Confirmed Type colesevelam 625 mg tablet (WelChol) 625 mg PO TID 06/17/18 10/30/23 History montelukast 10 mg tablet 10 mg PO HS 06/17/18 10/30/23 History (Singulair) ipratropium 0.5 mg-albuterol 3 mg 3 ml inhalation Q4H PRN Shortness 05/05/19 10/30/23 History (2.5 mg base)/3 mL nebulization Of Breath Or Wheezing soln tshcjt-kayiehxl-llqbnnx 4 cap PO TID 05/05/19 10/30/23 History 24,000-76,000-120,000 unit capsule,delayed rel (Creon) omeprazole magnesium 20 mg 20 mg PO BID 05/17/19 10/30/23 History tablet,delayed release (Prilosec OTC) risperidone 2 mg tablet 2 mg PO HS 02/27/21 10/30/23 History metolazone 2.5 mg tablet 2.5 mg PO WK 11/15/22 10/30/23 History oxycodone-acetaminophen 5 mg-325 1 tab PO Q6H PRN Pain 11/15/22 10/30/23 History mg tablet (Percocet) ropinirole 0.5 mg tablet 0.5 mg PO HS 11/15/22 10/30/23 History valacyclovir 500 mg tablet 500 mg PO QAM 11/15/22 10/30/23 History calcitriol 0.5 mcg capsule 0.5 mcg PO BID #60 caps 12/21/22 10/30/23 Rx albuterol sulfate 90 mcg/actuation 2 inh inhalation Q6H PRN Shortness 02/03/23 10/30/23 Rx breath activated powder inhaler Of Breath Or Wheezing #1 ea levothyroxine 88 mcg tablet 88 mcg PO QAM #30 tabs 05/21/23 10/30/23 Rx cyanocobalamin (vitamin B-12) 1,000 mcg PO DAILY 05/24/23 10/30/23 History 1,000 mcg tablet (Vitamin B-12) nitroglycerin 0.4 mg sublingual 0.4 mg sublingual DIRECTED PRN 05/24/23 10/30/23 History tablet (Nitrostat) Chest Pain cetirizine 10 mg tablet 10 mg PO DAILY 05/29/23 10/30/23 History duloxetine 60 mg capsule,delayed 60 mg PO QAM #30 caps 06/04/23 10/30/23 Rx release torsemide 20 mg tablet 20 mg PO BID 06/24/23 10/30/23 History calcium carbonate 600 mg calcium 1,200 mg PO TID 07/22/23 10/30/23 History (1,500 mg) tablet (Calcium) denosumab 60 mg/mL subcutaneous 60 mg subcut Q180D #1 mL 07/22/23 10/30/23 Rx syringe (Prolia) pregabalin 100 mg capsule 100 mg PO TID 30 days #90 caps 08/17/23 10/30/23 Rx potassium chloride 20 mEq 20 meq PO BID #180 tabs 08/19/23 10/30/23 Rx tablet,extended release vibegron 75 mg tablet (Gemtesa) 75 mg PO DAILY #90 tabs 10/13/23 10/30/23 Rx fluticasone furoate 200 1 inh inhalation DAILY 10/30/23 10/30/23 History mcg-vilanterol 25 mcg/dose inhalation powder (Breo Ellipta) kasixidonzcg-twubyhon-nronea tablet 1 tab PO DAILY 10/30/23 10/30/23 History potassium citrate 15 mEq (1,620 15 meq PO BID 10/30/23 10/30/23 History mg) tablet,extended release rosuvastatin 10 mg tablet 10 mg PO QAM 10/30/23 10/30/23 History Patient History Medical History Neuropathy Bronchiectasis ILD (interstitial lung disease) Recurrent major depression in remission History of DVT (deep vein thrombosis) Pacemaker [employer], implanted 12/2022 (bradycardia) Right rotator cuff tear Osteoporosis Nocturnal hypoxemia Osteoarthritis of left knee Kidney stones LARRY treated with BiPAP Junctional bradycardia Hypothyroidism Secondary hyperparathyroidism Pulmonary hypertension mild per 07/[address] report Atherosclerosis of both lower extremities Chronic kidney disease stage 3b GERD without esophagitis COPD (chronic obstructive pulmonary disease) "Well controlled" History of anemia Lumbar transverse process fracture Pt reports lower back detioriating - can't lie flat/sleep on a chair Pulmonary nodule seen on imaging study Reactive hypoglycemia Vitamin D deficiency Wrist injury Scar tissue surrounding remote wrist ORIF several years ago resulting in intermittent inflammation per pt Bilateral nephrolithiasis H/O concussion Remote hx "a long time ago" Incisional hernia Abdominal (from multiple surgeries/feeding tube) Obesity Sepsis 05/2020 @ [facility], urosepsis 2/2 obstructing renal stone, S/P cysto/stent and ESWL Chronic urinary tract infection Sleep apnea complex sleep apnea, BIPAP (non-compliant) Hyperlipidemia per records Complex sleep apnea syndrome Chronic venous insufficiency Chronic sinusitis Pancreatic insufficiency chronic pancreatitis Peripheral neuropathy MRSA (methicillin resistant staph aureus) culture positive Hx (Left wrist) Had 3 nasal swab and all negative (through [facility] per pt) Port-A-Cath in place right side due to poor vascular access Urinary leakage PUD (peptic ulcer disease) Had feeding tube for 28 years (has been removed for 11 years) Depression Asthma Peripheral neuropathy Lumbar stenosis Chronic diastolic (congestive) heart failure Follows with [facility] cardiology Short bowel syndrome Fall PVC (premature ventricular contraction) Pernicious anemia (08/08/13) Surgical History History of esophageal dilatation History of cystoscopy multiple H/O shoulder surgery RT arthroscopy 05/28/2021: LMA#4 atraumatic x 1 + PNB. Anesthesia postop progress note: "Pt denies SOB at this time. Block is functioning well. V ital signs stable and appropriate. Oxygenating well considering block placement and her comorbidities. Plan to discharge home with IS." S/P right rotator cuff repair S/P ureteral stent placement Status post laser lithotripsy of ureteral calculus History of prior ablation treatment Right LE in January 2020 and left LE 04/18/20 History of partial gastrectomy History of sinus surgery History of tonsillectomy and adenoidectomy History of total abdominal hysterectomy and bilateral salpingo-oophorectomy History of cholecystectomy History of appendectomy History of open reduction and internal fixation (ORIF) procedure left wrist + manipulation (01/2018) and I&D (10/2019) History of joint replacement Rt thumb History of knee replacement procedure of right knee History of esophagogastroduodenoscopy (EGD) History of colonoscopy History of gastrointestinal surgery multiple History of cardiac cath 08/2019 ([facility])- essentially normal coronary arteries angiographically, no stents Family History Mother Family history of diabetes mellitus Sister Family history of diabetes mellitus Family history of breast cancer Father Esophageal cancer Other Family history non-contributory No family history of adverse response to anesthesia Social History Smoking Status: Never smoker Second Hand Exposure: No; Do You Dip or Chew Tobacco: No; Hx Alcohol Use: Yes Alcohol type: beer Hx Substance Use: No Preferred Language: Greenlandic Communication Ability: Effective Visual Impairment: No Limitations Bankruptcy Assistant Required: No Beliefs That Will Affect Care: None marital status: Single Current Living Situation: Alone Current Living Situation Comment: apartment behind shelter facility How many Children do You have: 0 Other Information That Helps Us Care for You: No Feels Safe at Home: Yes Safety Concerns: Feels Safe At This Time Assistive Devices: Denture - Upper, Denture - Lower, Glasses and Walker Review of Systems Negative except as listed in HPI Physical Exam AAO X 3 No aphasia or dysarthria VFF EOMI, no nystagsmu Facial sensations intact No facial asymmetry Tongue protrudes midline Motor: Moves all four extremities antigravity, no drift Sensation: Mild decrease to sensation in left lower extremity, otherwise intact to light touch Cerebellar: FTN and HTS intact Results & Data Vital Signs (Past 12 Hours) Vital Signs Temp Pulse Resp BP Pulse Ox O2 Del Method 11/01/23 11:58 36.3 C L 72 18 96/63 L 95 Room Air 11/01/23 08:17 36.4 C L 68 18 105/69 94 Room Air Laboratory Results WBC 6.13, HGB 13.2, HCT 40.3, Plts 213, NA 143, Potassium 3.7, Chloride 103, Carbon dioxide 31, BUN 41, Creatinine 1.09, Glucose 103, Urinalysis 3+ leukocyte esterase, urine RBC 10-30, bacteria 2+ Diagnostic Findings CTH: No acute intracranial abnormality. (1) Headache Headache chronicity pattern: unspecified pattern Headache type: unspecified Intractability: not intractable Qualified Code(s): R51.9 - Headache, unspecified
[2023-11-01] MEDS: MONTELUKAST SODIUM 10 MG TABLET PO SCH (20:44)
[2023-11-01] MEDS: risperiDONE 2 MG TABLET PO SCH (20:45)
[2023-11-01] MEDS: rOPINIRole HCL 0.25 MG TABLET PO SCH (20:45)
[2023-11-02] MEDS ORDERED: CETIRIZINE HCL 10 MG TABLET PO ONE (02:36)
[2023-11-02] MEDS: diphenhydrAMINE 2%/ZINC 0.1% CREAM 28.4GM TUBE EXT PRN ×3 (03:13→21:40)
[2023-11-02 05:11] LABS: Basophils # (auto) 0.02 K/uL (0.00-0.20); Basophils % (auto) 0.3 %; Eosinophils # (auto) 0.26 K/uL (0.00-0.50); Eosinophils % (auto) 3.8 %; Hematocrit (blood only) 38.8 % (37.0-47.0); Immature Granulocytes # (auto) 0.01 K/uL (0.01-0.20); Immature Granulocytes % (auto) 0.1 %; Lymphocytes # (auto) 1.15 K/uL (1.20-3.40); Lymphocytes % (auto) 16.6 %; Mean Corpuscular Hgb Conc 33.5 g/dL (32.0-36.0); Mean Corpuscular Volume 86.4 fL (80.0-100.0); Mean Platelet Volume 9.5 fL (9.4-12.4); Monocytes # (auto) 0.88 K/uL (0.11-0.59); Monocytes % (auto) 12.7 %; Neutrophils # (auto) 4.59 K/uL (1.40-6.50); Neutrophils % (auto) 66.5 %; Platelet Count 214 K/uL (130-400); RDW Coefficient of Variation 15.4 % (11.5-14.5); RDW Standard Deviation 48.8 fL (36.4-46.3); Red Blood Count 4.49 M/uL (4.20-5.40); White Blood Count 6.91 K/ul (4.8-10.8)
[2023-11-02] MEDS: LEVOTHYROXINE SODIUM 88 MCG TABLET PO SCH (05:39)
[2023-11-02] MEDS: ENOXAPARIN INJ 40 MG/0.4 ML SYR SQ SCH (05:39)
[2023-11-02] MEDS: HEPARIN 100 UNIT/ML 5ML FLUSH FLUSH PRN (05:39)
[2023-11-02 05:47] LABS: Calcium 9.7 mg/dl (8.6-10.3); Creatinine Clr Calc Pharmacy 34.9 ml/min; Est GFR (African American) 43.7 ml/min; Est GFR (Non-African American) 37.7 ml/min; Potassium 2.9 mmol/L (3.5-5.1)
[2023-11-02] MEDS: PANCREAZE (LIPASE 16,800U) CAP PO SCH ×3 (08:54→18:21)
[2023-11-02] MEDS: POTASSIUM CHLORIDE CRTAB 20 MEQ TABCR PO SCH ×2 (08:55→21:37)
[2023-11-02] MEDS: ROSUVASTATIN CALCIUM 10 MG TAB PO SCH (08:55)
[2023-11-02] MEDS: valACYclovir HCL 500 MG TABLET PO SCH (08:55)
[2023-11-02] MEDS: CALCIUM CARBONATE 500 MG CHEWABLE TAB PO SCH ×3 (08:57→21:38)
[2023-11-02] MEDS: CALCITRIOL 0.25 MCG CAPSULE PO SCH ×2 (08:57→21:39)
[2023-11-02] MEDS: DULoxetine HCL 60 MG CAP PO SCH (08:58)
[2023-11-02] MEDS: CYANOCOBALAMIN (B-12) 500 MCG TABLET PO SCH (08:58)
[2023-11-02] MEDS: PREGABALIN 100 MG CAP PO SCH ×3 (08:59→21:37)
[2023-11-02] MEDS: PANTOprazole 40 MG TAB PO SCH ×2 (08:59→21:39)
[2023-11-02] MEDS: FLUTICASONE/VILANTEROL 200/25MCG 14 PUFFS/INHALER INH SCH (09:00)
[2023-11-02] MEDS: TORSEMIDE 20 MG TAB PO SCH (12:07)
[2023-11-02] MEDS: POTASSIUM CHLORIDE / WTR 10 MEQ/100 ML PLCT IV SCH ×2 (12:09→13:19)
[2023-11-02] MEDS ORDERED: GADOBUTROL 30ML VIAL IV ONE (12:15)
--- NOTE | 2023-11-02 12:44 | Magnetic Resonance Report ---
MRI OF THE BRAIN COMBO CLINICAL HISTORY: Transient ischemic attack. COMPARISON STUDY: CT of the brain dated 10/30/2023. TECHNIQUE: MRI of the brain was performed utilizing various T1 and T2-weighted sequences in the axial , sagittal, and coronal planes. Contrast-enhanced sequences were acquired following the administratio n of 7.5 cc of Gadavist. FINDINGS: Brain parenchyma: There is age related involutional change noting minimal microangiopathic disease. T here is no hemorrhage or mass effect. There is no restricted diffusion to suggest acute ischemia. No enhancing mass lesion is identified on the postcontrast images. Jerez-white matter differentiation is preserved. No extra-axial fluid collection is seen. The cerebellar tonsils are normal in configuratio n. Ventricles, sulci, and cisterns: Prominent secondary to involutional change. Pituitary and sella: Unremarkable. Intracranial vasculature: Normal flow voids are maintained at the skull base. Orbits: The bony orbits are grossly intact. Orbital contents are normal in appearance noting bilatera l ocular lens implants. Sinuses and mastoids: There is evidence of previous paranasal sinus surgery. Moderate mucosal thicken ing is noted in the right maxillary antrum. The remaining paranasal sinuses and the mastoid air cells appear clear. Calvarium: Unremarkable. Cervical cord: Partially visualized cervical spinal cord is normal in morphology and signal intensity . IMPRESSION: No acute intracranial abnormality. ACT 112: Negative or not required by law. Electronically signed by: Chinedu Hicks M.D. 11/02/2023 12:42 PM
--- NOTE | 2023-11-02 13:32 | Magnetic Resonance Report ---
MR angio head wo con HISTORY: 73 years-old Female tia acute strokelike symptoms COMPARISON: Head CT 10/30/2023 TECHNIQUE: MRI of the head was obtained without the use of IV contrast with 3-D reformatted metastase s. All measurements were obtained according to NASCET criteria. FINDINGS: No aneurysm, dissection, high-grade stenosis or arterial occlusion. Volume loss with moderate polypoi d mucosal thickening of the right maxillary sinus incidentally noted. Involutional changes of the bra in parenchyma. IMPRESSION: Unremarkable MRA of the head. ACT 112: Negative or not required by law. The above report was generated using voice recognition software. It may contain grammatical, syntax o r spelling errors. Electronically signed by: Soham Kirby M.D. 11/02/2023 1:31 PM
[2023-11-02] MEDS: cefTRIAXone SODIUM 2,000 MG in DEXTROSE 5 % MINI-B 50 ML IV SCH (14:38)
--- NOTE | 2023-11-02 16:34 | Hospitalist Progress Note ---
Date of Service November 02, 2023 Assessment & Plan (1) Headache: Plan: Intermittent LESLIE x [address] head: no acute findings No focal deficits on exam Discussed trying to avoid medication overuse at home Saw neurology 10/26/23 and was recommended patient may try low dose magnesium supplementation Will hold vibegron currently as may be contributing to LESLIE also Appreciate neurology input and recommendation MRI of the head with and without contrast-unremarkable MRA of the head did not show any evidence of abnormality She continues to have headache Will start dexamethasone as advised by the neurologist Will continue with the current management and observe (2) Acute hypokalemia: Plan: Patient is 73-year-old female with PMH diastolic heart failure, hypothyroidism, sinus node dysfunction, history of gastric bypass, pancreatic insufficiency, chronic pain, neuropathy, sleep apnea, depression, and others listed below presented to ER with complaint of headache and muscle cramps. In ER afebrile, vitals stable. K: 2.5. Magnesium: 1.9. Troponin: 16.7 Likely secondary to chronic diuretic use-use of torsemide and metolazone Has been getting regular potassium supplement Potassium level remains low Will continue to supplement and monitor (3) Chronic diastolic (congestive) heart failure: Plan: Appears euvolemic Resume torsemide. Metolazone on hold. Remains hypokalemic Will hold torsemide for now (4) Acute UTI: Plan: Patient reports increasing frequency urgency. Urinalysis suggestive of infection. Urine culture growing E. coli-came out to be pansensitive Started on ceftriaxone. Will continue current antibiotic for now and changed to oral Keflex on discharge (5) Hypothyroidism: Plan: Continue levothyroxine TSH within normal range. (6) Pancreatic insufficiency: Plan: History gastric bypass Prior history chronic diarrhea, now controlled Continue Creon, colesevelam (7) Neuropathy: Plan: Continue pregabalin (8) Sleep apnea: Plan: LARRY Previously on bipap but history noncompliance DVT Prophylaxis Lovenox SQ Full Code as per discussion with pt Follows with Dr Marx for routine care Please note the above document was generated using voice recognition software. It may contain grammatical, syntax or spelling errors. Any formal questions or concerns about the content, text or information contained within the body of this dictation should be directly addressed to the provider for clarification Admission and Anticipated Discharge Date Admission Date: October 30, 2023 Subjective 11/02/2023 The patient was seen and examined in telemetry unit She has been complaining of headache which is bifrontal and has been going on for about 6 to 8 weeks Headache is associated with some shortness of breath and nausea Denies any other neurological symptoms with the headache-no visual symptoms, no problem with speech and/or swallowing, no numbness or tingling in the extremities, no localized weakness Denies any other symptoms Review of Systems Review of Systems: All systems reviewed and are unremarkable except as noted below Physical Exam Physical Exam: Sitting on a chair without any acute distress Constitutional: well developed, well nourished and + obese; not ill appearing Eyes: PERRL, conjunctivae normal, anicteric sclerae ENMT: external ear and nose normal, oropharynx normal Neck: trachea midline, no thyromegaly Respiratory: no respiratory distress Auscultation: lungs clear to auscultation bilaterally Cardiovascular: Rate/Rhythm: regular rate and regular rhythm; not tachycardic Heart Sounds: normal S1 and normal S2; no murmur Extremities: no edema Gastrointestinal (Abdomen): Inspection/Auscultation: normal bowel sounds; abdomen not distended Percussion/Palpation: abdomen soft; abdomen nontender Musculoskeletal: No acute arthritis involving any of the joint Neurologic: normal touch/pain/proprioception and moves all extremities; no focal motor deficits Psychiatric: A+Ox3, euthymic affect Lymphatic: no cervical or axillary lymphadenopathy Results & Data Results & Data Vital Signs (Past 12 Hours) Vital Signs Temp Pulse Pulse Resp BP Pulse Ox O2 Del Method 11/02/23 15:48 78 11/02/23 15:09 36.8 C 76 18 117/76 96 Room Air 11/02/23 12:32 37.0 C 77 19 110/70 97 Room Air 11/02/23 07:47 66 11/02/23 07:28 36.8 C 68 18 128/74 92 Room Air Laboratory Results Short CBC 11/02/23 Range/Units 04:55 WBC 6.91 (4.8-10.8) K/ul Hgb 13.0 (12.0-16.0) g/dl Hct 38.8 (37.0-47.0) % Plt Count 214 (130-400) K/uL BMP 11/02/23 04:55 Sodium 142 Potassium 2.9 L D Chloride 100 Carbon Dioxide 32 BUN 49 H Creatinine 1.40 H D Glucose 119 H Calcium 9.7 Medications Administered Current Inpatient Medications Acetaminophen (Acetaminophen 325 Mg Tab) 650 mg PO Q4H PRN PRN Reason: Pain or Fever Stop: 11/29/23 22:18 Last Admin: 11/01/23 14:47 Dose: 650 mg Albuterol (Albuterol Hfa 8 Gm Inhaler) 2 puffs INH Q6H PRN PRN Reason: Shortness Of Breath Or Wheezin Stop: 11/29/23 23:30 Lipase/Protease/Amylase (Pancreaze (Lipase 16,800u) Cap) 5 cap PO TIDM [facility] Stop: 11/30/23 07:59 Last Admin: 11/02/23 12:12 Dose: 5 cap Calcitriol (Calcitriol 0.25 Mcg Capsule) 0.5 mcg PO BID [facility] Stop: 11/29/23 22:18 Last Admin: 11/02/23 08:57 Dose: 0.5 mcg Calcium Carbonate (Calcium Carbonate 500 Mg Chewable Tab) 1,500 mg PO TID [facility] Stop: 11/30/23 08:59 Last Admin: 11/02/23 13:19 Dose: Not Given Cetirizine HCl (Cetirizine Hcl 10 Mg Tablet) 10 mg PO DAILY [facility] Stop: 12/03/23 08:59 Cyanocobalamin (Cyanocobalamin (B-12) 500 Mcg Tablet) 1,000 mcg PO DAILY [facility] Stop: 11/30/23 08:59 Last Admin: 11/02/23 08:58 Dose: 1,000 mcg Duloxetine HCl (Duloxetine Hcl 60 Mg Cap) 60 mg PO QAM [facility] Stop: 11/30/23 08:59 Last Admin: 11/02/23 08:58 Dose: 60 mg Enoxaparin Sodium (Enoxaparin Inj 40 Mg/0.4 Ml Syr) 40 mg SQ Q24H [facility] Stop: 11/30/23 05:59 Last Admin: 11/02/23 05:39 Dose: 40 mg Fluticasone/Vilanterol (Fluticasone/Vilanterol 200/25mcg 14 Puffs/Inhaler) 1 puffs INH DAILY [facility] Stop: 11/30/23 08:59 Last Admin: 11/02/23 09:00 Dose: 1 puffs Heparin Sodium (Porcine) (Heparin 100 Unit/Ml 5ml Flush) 5 ml FLUSH PRN PRN PRN Reason: Flush Stop: 11/30/23 04:33 Last Admin: 11/02/23 05:39 Dose: 5 ml Ceftriaxone Sodium 2,000 mg/ (Dextrose) 50 mls @ 100 mls/hr IV Q24H [facility]; Protocol Stop: 11/05/23 14:29 Last Infusion: 11/02/23 15:47 Dose: Infused Levothyroxine Sodium (Levothyroxine Sodium 88 Mcg Tablet) 88 mcg PO DAILYBB [facility] Stop: 11/30/23 06:29 Last Admin: 11/02/23 05:39 Dose: 88 mcg Miscellaneous (Order Awaiting Action: Colesevelam [Welchol] 625 Mg Tablet) 1 each N/A QS [facility] Stop: 11/30/23 00:00 Last Admin: 11/02/23 08:58 Dose: Not Given Montelukast Sodium (Montelukast Sodium 10 Mg Tablet) 10 mg PO HS [facility] Stop: 11/29/23 22:18 Last Admin: 11/01/23 20:44 Dose: 10 mg Ondansetron HCl (Ondansetron Inj 2 Mg/Ml 2 Ml Vial) 4 mg IV Q6H PRN PRN Reason: Nausea Stop: 11/29/23 22:18 Last Admin: 10/30/23 23:28 Dose: 4 mg Oxycodone/Acetaminophen (Oxycodone/Acetaminophen 5mg/325mg Tab) 1 tab PO Q6H PRN PRN Reason: Mod-Sev Pain (Scale 4-10) Stop: 11/13/23 22:18 Last Admin: 11/01/23 22:36 Dose: 1 tab Pantoprazole Sodium (Pantoprazole 40 Mg Tab) 40 mg PO BID [facility] Stop: 11/29/23 22:44 Last Admin: 11/02/23 08:59 Dose: 40 mg Polyethylene Glycol (Polyethylene (Miralax) 17 Gm Pack) 17 gm PO DAILY PRN PRN Reason: Constipation Stop: 11/29/23 22:18 Potassium Chloride (Potassium Chloride Crtab 20 Meq Tabcr) 20 meq PO BID [facility] Stop: 11/30/23 08:59 Last Admin: 11/02/23 08:55 Dose: 20 meq Pregabalin (Pregabalin 100 Mg Cap) 100 mg PO TID [facility] Stop: 11/29/23 22:18 Last Admin: 11/02/23 14:37 Dose: 100 mg Risperidone (Risperidone 2 Mg Tablet) 2 mg PO [facility] Stop: 11/29/23 22:18 Last Admin: 11/01/23 20:45 Dose: 2 mg Ropinirole HCl (Ropinirole Hcl 0.25 Mg Tablet) 0.5 mg PO HS [facility] Stop: 11/29/23 22:18 Last Admin: 11/01/23 20:45 Dose: 0.5 mg Rosuvastatin Calcium (Rosuvastatin Calcium 10 Mg Tab) 10 mg PO QAM [facility] Stop: 11/30/23 08:59 Last Admin: 11/02/23 08:55 Dose: 10 mg Torsemide (Torsemide 20 Mg Tab) 20 mg PO BID17 [facility] Stop: 11/30/23 16:59 Last Admin: 11/02/23 12:07 Dose: 20 mg Valacyclovir HCl ([facility]clovir Hcl 500 Mg Tablet) [facility] [place]: 11/30/23 08:59 Last Admin: 11/02/23 08:55 Dose: 500 mg Zinc Acetate/Diphenhydramine (Diphenhydramine 2%/Zinc 0.1% Cream 28.4gm Tube) 1 appln EXT QID PRN PRN Reason: itchy skin Stop: 12/02/23 02:35 Last Admin: 11/02/23 13:20 Dose: 1 appln (1) Headache Headache chronicity pattern: unspecified pattern Headache type: unspecified Intractability: not intractable Qualified Code(s): R51.9 - Headache, unspecified
[2023-11-02] MEDS: oxyCODONE/ACETAMINOPHEN 5mg/325mg TAB PO PRN (18:19)
[2023-11-02] MEDS: dexAMETHasone 4 MG TAB PO SCH (21:37)
[2023-11-02] MEDS: MONTELUKAST SODIUM 10 MG TABLET PO SCH (21:38)
[2023-11-02] MEDS: rOPINIRole HCL 0.25 MG TABLET PO SCH (21:39)
[2023-11-02] MEDS: risperiDONE 2 MG TABLET PO SCH (21:39)
[2023-11-03] MEDS: oxyCODONE/ACETAMINOPHEN 5mg/325mg TAB PO PRN ×3 (03:15→18:47)
[2023-11-03] MEDS: HEPARIN 100 UNIT/ML 5ML FLUSH FLUSH PRN (04:49)
[2023-11-03] MEDS: diphenhydrAMINE 2%/ZINC 0.1% CREAM 28.4GM TUBE EXT PRN ×2 (04:57→21:30)
[2023-11-03 05:25] LABS: BUN Creatinine Ratio 41.9 (10-20); Calcium 9.2 mg/dl (8.6-10.3); Est GFR (African American) 40.9 ml/min; Est GFR (Non-African American) 35.3 ml/min; Magnesium 1.9 mg/dl (1.7-2.4); Potassium 3.1 mmol/L (3.5-5.1)
[2023-11-03] MEDS: ENOXAPARIN INJ 40 MG/0.4 ML SYR SQ SCH (05:54)
[2023-11-03] MEDS: LEVOTHYROXINE SODIUM 88 MCG TABLET PO SCH (05:54)
[2023-11-03] MEDS ORDERED: POTASSIUM CHLORIDE CRTAB 20 MEQ TABCR PO STA (08:18)
[2023-11-03] MEDS: PANCREAZE (LIPASE 16,800U) CAP PO SCH ×3 (08:56→18:07)
[2023-11-03] MEDS: PREGABALIN 100 MG CAP PO SCH ×3 (08:57→21:24)
[2023-11-03] MEDS: CALCITRIOL 0.25 MCG CAPSULE PO SCH ×2 (08:58→21:26)
[2023-11-03] MEDS: CALCIUM CARBONATE 500 MG CHEWABLE TAB PO SCH ×3 (08:58→21:24)
[2023-11-03] MEDS: valACYclovir HCL 500 MG TABLET PO SCH (08:59)
[2023-11-03] MEDS: CYANOCOBALAMIN (B-12) 500 MCG TABLET PO SCH (09:00)
[2023-11-03] MEDS: POTASSIUM CHLORIDE / WTR 10 MEQ/100 ML PLCT IV SCH ×2 (09:00→10:22)
[2023-11-03] MEDS: ROSUVASTATIN CALCIUM 10 MG TAB PO SCH (09:00)
[2023-11-03] MEDS: PANTOprazole 40 MG TAB PO SCH ×2 (09:01→21:26)
[2023-11-03] MEDS: dexAMETHasone 4 MG TAB PO SCH ×3 (09:01→21:25)
[2023-11-03] MEDS: DULoxetine HCL 60 MG CAP PO SCH (09:01)
[2023-11-03] MEDS: POTASSIUM CHLORIDE CRTAB 20 MEQ TABCR PO SCH ×3 (09:01→21:26)
[2023-11-03] MEDS: CETIRIZINE HCL 10 MG TABLET PO SCH (09:02)
[2023-11-03] MEDS: FLUTICASONE/VILANTEROL 200/25MCG 14 PUFFS/INHALER INH SCH (09:03)
--- NOTE | 2023-11-03 14:00 | Hospitalist Progress Note ---
Date of Service November 03, 2023 Assessment & Plan (1) Headache: Plan: Intermittent LESLIE x [address] head: no acute findings No focal deficits on exam Discussed trying to avoid medication overuse at home Saw neurology 10/26/23 and was recommended patient may try low dose magnesium supplementation Will hold vibegron currently as may be contributing to LESLIE also Appreciate neurology input and recommendation MRI of the head with and without contrast-unremarkable MRA of the head did not show any evidence of abnormality She continues to have headache Will start dexamethasone as advised by the neurologist Will continue with the current management and observe Headache is a little better with dexamethasone Will add topiramate 25 mg nightly for 1 week and then twice daily to continue for prevention of headache (2) Acute hypokalemia: Plan: Patient is 73-year-old female with PMH diastolic heart failure, hypothyroidism, sinus node dysfunction, history of gastric bypass, pancreatic insufficiency, chronic pain, neuropathy, sleep apnea, depression, and others listed below presented to ER with complaint of headache and muscle cramps. In ER afebrile, vitals stable. K: 2.5. Magnesium: 1.9. Troponin: 16.7 Likely secondary to chronic diuretic use-use of torsemide and metolazone Has been getting regular potassium supplement Potassium level remains low Will continue to supplement and monitor Potassium level remains low and will supplement more Demadex has been on hold and metolazone has been discontinued Monitor PRP (3) Chronic diastolic (congestive) heart failure: Plan: Appears euvolemic Resume torsemide. Metolazone on hold. Remains hypokalemic Will hold torsemide for now (4) Acute UTI: Plan: Patient reports increasing frequency urgency. Urinalysis suggestive of infection. Urine culture growing E. coli-came out to be pansensitive Started on ceftriaxone. Will continue current antibiotic for now and changed to oral Keflex on discharge (5) Hypothyroidism: Plan: Continue levothyroxine TSH within normal range. (6) Pancreatic insufficiency: Plan: History gastric bypass Prior history chronic diarrhea, now controlled Continue Creon, colesevelam (7) Neuropathy: Plan: Continue pregabalin (8) Sleep apnea: Plan: LARRY Previously on bipap but history noncompliance DVT Prophylaxis Lovenox SQ Full Code as per discussion with pt Follows with Dr Marx for routine care Please note the above document was generated using voice recognition software. It may contain grammatical, syntax or spelling errors. Any formal questions or concerns about the content, text or information contained within the body of this dictation should be directly addressed to the provider for clarification Admission and Anticipated Discharge Date Admission Date: October 30, 2023 Subjective 11/02/2023 The patient was seen and examined in telemetry unit She has been complaining of headache which is bifrontal and has been going on for about 6 to 8 weeks Headache is associated with some shortness of breath and nausea Denies any other neurological symptoms with the headache-no visual symptoms, no problem with speech and/or swallowing, no numbness or tingling in the extremities, no localized weakness Denies any other symptoms 11/03/2023 The patient was seen and examined in telemetry unit Her headache is much better today but she is not yet ready to be discharged Denies any other significant symptoms Review of Systems Review of Systems: All systems reviewed and are unremarkable except as noted below Physical Exam Physical Exam: Sitting on a chair without any acute distress Constitutional: well developed, well nourished and + obese; not ill appearing Eyes: PERRL, conjunctivae normal, anicteric sclerae ENMT: external ear and nose normal, oropharynx normal Neck: trachea midline, no thyromegaly Respiratory: no respiratory distress Auscultation: lungs clear to auscultation bilaterally Cardiovascular: Rate/Rhythm: regular rate and regular rhythm; not tachycardic Heart Sounds: normal S1 and normal S2; no murmur Extremities: no edema Gastrointestinal (Abdomen): Inspection/Auscultation: normal bowel sounds; abdomen not distended Percussion/Palpation: abdomen soft; abdomen nontender Neurologic: normal touch/pain/proprioception and moves all extremities; no focal motor deficits Psychiatric: A+Ox3, euthymic affect Lymphatic: no cervical or axillary lymphadenopathy Results & Data Results & Data Vital Signs (Past 12 Hours) Vital Signs Temp Pulse Pulse Resp BP Pulse Ox O2 Del Method 11/03/23 11:35 36.7 C 65 18 112/70 96 Room Air 11/03/23 07:18 36.8 C 62 18 101/68 90 Room Air 11/03/23 07:16 66 11/03/23 03:06 36.8 C 74 20 132/72 92 Room Air Laboratory Results [facility] 11/03/23 04:28 Sodium 138 Potassium 3.1 L Chloride 99 Carbon Dioxide 30 BUN 62 H Creatinine 1.48 H Glucose 110 H Calcium 9.2 Medications Administered Current Inpatient Medications Acetaminophen (Acetaminophen 325 Mg Tab) 650 mg PO Q4H PRN PRN Reason: Pain or Fever Stop: 11/29/23 22:18 Last Admin: 11/01/23 14:47 Dose: 650 mg Albuterol (Albuterol Hfa 8 Gm Inhaler) 2 puffs INH Q6H PRN PRN Reason: Shortness Of Breath Or Wheezin Stop: 11/29/23 23:30 Lipase/Protease/Amylase (Pancreaze (Lipase 16,800u) Cap) 5 cap PO TIDM [facility] Stop: 11/30/23 07:59 Last Admin: 11/03/23 08:56 Dose: 5 cap Calcitriol (Calcitriol 0.25 Mcg Capsule) 0.5 mcg PO BID [facility] Stop: 11/29/23 22:18 Last Admin: 11/03/23 08:58 Dose: 0.5 mcg Calcium Carbonate (Calcium Carbonate 500 Mg Chewable Tab) 1,500 mg PO TID [facility] Stop: 11/30/23 08:59 Last Admin: 11/03/23 08:58 Dose: 1,500 mg Cetirizine HCl (Cetirizine Hcl 10 Mg Tablet) 10 mg PO DAILY [facility] Stop: 12/03/23 08:59 Last Admin: 11/03/23 09:02 Dose: 10 mg Cyanocobalamin (Cyanocobalamin (B-12) 500 Mcg Tablet) 1,000 mcg PO DAILY [facility] Stop: 11/30/23 08:59 Last Admin: 11/03/23 09:00 Dose: 1,000 mcg Dexamethasone (Dexamethasone 4 Mg Tab) 4 mg PO TID [facility]; [facility]aper Stop: 11/05/23 20:59 Last Admin: 11/03/23 09:01 Dose: 4 mg Duloxetine HCl (Duloxetine Hcl 60 Mg Cap) 60 mg PO QAM [facility] Stop: 11/30/23 08:59 Last Admin: 11/03/23 09:01 Dose: 60 mg Enoxaparin Sodium (Enoxaparin Inj 40 Mg/0.4 Ml Syr) 40 mg SQ Q24H [facility] Stop: 11/30/23 05:59 Last Admin: 11/03/23 05:54 Dose: 40 mg Fluticasone/Vilanterol (Fluticasone/Vilanterol 200/25mcg 14 Puffs/Inhaler) 1 puffs INH DAILY [facility] Stop: 11/30/23 08:59 Last Admin: 11/03/23 09:03 Dose: 1 puffs Heparin Sodium (Porcine) (Heparin 100 Unit/Ml 5ml Flush) 5 ml FLUSH PRN PRN PRN Reason: Flush Stop: 11/30/23 04:33 Last Admin: 11/03/23 04:49 Dose: 5 ml Ceftriaxone Sodium 2,000 mg/ (Dextrose) 50 mls @ 100 mls/hr IV Q24H [facility]; Protocol Stop: 11/05/23 14:29 Last Infusion: 11/02/23 15:47 Dose: Infused Levothyroxine Sodium (Levothyroxine Sodium 88 Mcg Tablet) 88 mcg PO DAILYBB [facility] Stop: 11/30/23 06:29 Last Admin: 11/03/23 05:54 Dose: 88 mcg Miscellaneous (Order Awaiting Action: Colesevelam [Welchol] 625 Mg Tablet) 1 each N/A QS [facility] Stop: 11/30/23 00:00 Last Admin: 11/03/23 08:57 Dose: Not Given Montelukast Sodium (Montelukast Sodium 10 Mg Tablet) 10 mg PO HS [facility] Stop: 11/29/23 22:18 Last Admin: 11/02/23 21:38 Dose: 10 mg Ondansetron HCl (Ondansetron Inj 2 Mg/Ml 2 Ml Vial) 4 mg IV Q6H PRN PRN Reason: Nausea Stop: 11/29/23 22:18 Last Admin: 10/30/23 23:28 Dose: 4 mg Oxycodone/Acetaminophen (Oxycodone/Acetaminophen 5mg/325mg Tab) 1 tab PO Q6H PRN PRN Reason: Mod-Sev Pain (Scale 4-10) Stop: 11/13/23 22:18 Last Admin: 11/03/23 11:59 Dose: 1 tab Pantoprazole Sodium (Pantoprazole 40 Mg Tab) 40 mg PO BID [facility] Stop: 11/29/23 22:44 Last Admin: 11/03/23 09:01 Dose: 40 mg Polyethylene Glycol (Polyethylene (Miralax) 17 Gm Pack) 17 gm PO DAILY PRN PRN Reason: Constipation Stop: 11/29/23 22:18 Potassium Chloride (Potassium Chloride Crtab 20 Meq Tabcr) 20 meq PO TID [facility] Stop: 12/02/23 20:59 Last Admin: 11/03/23 09:01 Dose: 20 meq Pregabalin (Pregabalin 100 Mg Cap) 100 mg PO TID [facility] Stop: 11/29/23 22:18 Last Admin: 11/03/23 08:57 Dose: 100 mg Risperidone (Risperidone 2 Mg Tablet) 2 mg PO HS [facility] Stop: 11/29/23 22:18 Last Admin: 11/02/23 21:39 Dose: 2 mg Ropinirole HCl (Ropinirole Hcl 0.25 Mg Tablet) 0.5 mg PO HS [facility] Stop: 11/29/23 22:18 Last Admin: 11/02/23 21:39 Dose: 0.5 mg Rosuvastatin Calcium (Rosuvastatin Calcium 10 Mg Tab) 10 mg PO QAM [facility] Stop: 11/30/23 08:59 Last Admin: 11/03/23 09:00 Dose: 10 mg Torsemide (Torsemide 20 Mg Tab) 20 mg PO BID17 [facility] Stop: 11/30/23 16:59 Last Admin: 11/02/23 12:07 Dose: 20 mg Valacyclovir HCl (Valacyclovir Hcl 500 Mg Tablet) 500 mg PO QAM [facility] Stop: 11/30/23 08:59 Last Admin: 11/03/23 08:59 Dose: 500 mg Zinc Acetate/Diphenhydramine (Diphenhydramine 2%/Zinc 0.1% Cream 28.4gm Tube) 1 appln EXT QID PRN PRN Reason: itchy skin Stop: 12/02/23 02:35 Last Admin: 11/03/23 04:57 Dose: 1 appln (1) Headache Headache chronicity pattern: unspecified pattern Headache type: unspecified Intractability: not intractable Qualified Code(s): R51.9 - Headache, unspecified
[2023-11-03] MEDS: cefTRIAXone SODIUM 2,000 MG in DEXTROSE 5 % MINI-B 50 ML IV SCH (15:55)
[2023-11-03] MEDS ORDERED: TOPIRAMATE 25 MG TAB PO SCH (21:00)
[2023-11-03] MEDS: ACETAMINOPHEN 325 MG TAB PO PRN (21:24)
[2023-11-03] MEDS: rOPINIRole HCL 0.25 MG TABLET PO SCH (21:25)
[2023-11-03] MEDS: risperiDONE 2 MG TABLET PO SCH (21:26)
[2023-11-03] MEDS: MONTELUKAST SODIUM 10 MG TABLET PO SCH (21:26)
[2023-11-04] MEDS: HEPARIN 100 UNIT/ML 5ML FLUSH FLUSH PRN (05:27)
[2023-11-04] MEDS: ENOXAPARIN INJ 40 MG/0.4 ML SYR SQ SCH (05:27)
[2023-11-04] MEDS: LEVOTHYROXINE SODIUM 88 MCG TABLET PO SCH (05:27)
[2023-11-04] MEDS: oxyCODONE/ACETAMINOPHEN 5mg/325mg TAB PO PRN (05:30)
[2023-11-04] MEDS: diphenhydrAMINE 2%/ZINC 0.1% CREAM 28.4GM TUBE EXT PRN (05:31)
[2023-11-04 06:37] LABS: BUN Creatinine Ratio 49.6 (10-20); Calcium 9.5 mg/dl (8.6-10.3); Creatinine Clr Calc Pharmacy 36.1 ml/min; Est GFR (African American) 45.7 ml/min; Est GFR (Non-African American) 39.4 ml/min; Magnesium 2.3 mg/dl (1.7-2.4); Potassium 4.1 mmol/L (3.5-5.1)
[2023-11-04] MEDS: PANCREAZE (LIPASE 16,800U) CAP PO SCH ×2 (08:39→12:02)
[2023-11-04] MEDS: PANTOprazole 40 MG TAB PO SCH (08:40)
[2023-11-04] MEDS: POTASSIUM CHLORIDE CRTAB 20 MEQ TABCR PO SCH (08:40)
[2023-11-04] MEDS: CALCITRIOL 0.25 MCG CAPSULE PO SCH (08:40)
[2023-11-04] MEDS: valACYclovir HCL 500 MG TABLET PO SCH (08:40)
[2023-11-04] MEDS: DULoxetine HCL 60 MG CAP PO SCH (08:41)
[2023-11-04] MEDS: CYANOCOBALAMIN (B-12) 500 MCG TABLET PO SCH (08:41)
[2023-11-04] MEDS: dexAMETHasone 4 MG TAB PO SCH (08:41)
[2023-11-04] MEDS: CETIRIZINE HCL 10 MG TABLET PO SCH (08:41)
[2023-11-04] MEDS: ROSUVASTATIN CALCIUM 10 MG TAB PO SCH (08:41)
[2023-11-04] MEDS: CALCIUM CARBONATE 500 MG CHEWABLE TAB PO SCH (08:45)
[2023-11-04] MEDS: FLUTICASONE/VILANTEROL 200/25MCG 14 PUFFS/INHALER INH SCH (08:46)
[2023-11-04] MEDS: PREGABALIN 100 MG CAP PO SCH (08:47)
--- NOTE | 2023-11-04 11:23 | Hospitalist Progress Note ---
Date of Service November 04, 2023 Assessment & Plan (1) Headache: Plan: Intermittent LESLIE x [address] head: no acute findings No focal deficits on exam Discussed trying to avoid medication overuse at home Saw neurology 10/26/23 and was recommended patient may try low dose magnesium supplementation Will hold vibegron currently as may be contributing to LESLIE also Appreciate neurology input and recommendation MRI of the head with and without contrast-unremarkable MRA of the head did not show any evidence of abnormality She continues to have headache Will start dexamethasone as advised by the neurologist Will continue with the current management and observe Headache is a little better with dexamethasone Will add topiramate 25 mg nightly for 1 week and then twice daily to continue for prevention of headache Headache is much better and she will be discharged home this afternoon (2) Acute hypokalemia: Plan: Patient is 73-year-old female with PMH diastolic heart failure, hypothyroidism, sinus node dysfunction, history of gastric bypass, pancreatic insufficiency, chronic pain, neuropathy, sleep apnea, depression, and others listed below presented to ER with complaint of headache and muscle cramps. In ER afebrile, vitals stable. K: 2.5. Magnesium: 1.9. Troponin: 16.7 Likely secondary to chronic diuretic use-use of torsemide and metolazone Has been getting regular potassium supplement Potassium level remains low Will continue to supplement and monitor Potassium level remains low and will supplement more Demadex has been on hold and metolazone has been discontinued Hypokalemia has been corrected We will continue with the potassium supplement with the diuretic (3) Chronic diastolic (congestive) heart failure: Plan: Appears euvolemic Resume torsemide. Metolazone on hold. Remains hypokalemic Will hold torsemide for now Torsemide will be restarted on discharge (4) Acute UTI: Plan: Patient reports increasing frequency urgency. Urinalysis suggestive of infection. Urine culture growing E. coli-came out to be pansensitive Started on ceftriaxone. Will continue current antibiotic for now and changed to oral Keflex on discharge Antibiotic for 2-3 more days orally (5) Hypothyroidism: Plan: Continue levothyroxine TSH within normal range. (6) Pancreatic insufficiency: Plan: History gastric bypass Prior history chronic diarrhea, now controlled Continue Creon, colesevelam (7) Neuropathy: Plan: Continue pregabalin (8) Sleep apnea: Plan: LARRY Previously on bipap but history noncompliance DVT Prophylaxis Lovenox SQ Full Code as per discussion with pt Follows with Dr Marx for routine care Has an appointment with Dr. Medrano Will be discharged this afternoon Please note the above document was generated using voice recognition software. It may contain grammatical, syntax or spelling errors. Any formal questions or concerns about the content, text or information contained within the body of this dictation should be directly addressed to the provider for clarification Admission and Anticipated Discharge Date Admission Date: October 30, 2023 Subjective 11/02/2023 The patient was seen and examined in telemetry unit She has been complaining of headache which is bifrontal and has been going on for about 6 to 8 weeks Headache is associated with some shortness of breath and nausea Denies any other neurological symptoms with the headache-no visual symptoms, no problem with speech and/or swallowing, no numbness or tingling in the extremities, no localized weakness Denies any other symptoms 11/03/2023 The patient was seen and examined in telemetry unit Her headache is much better today but she is not yet ready to be discharged Denies any other significant symptoms 11/04/2023 The patient was seen and examined in telemetry unit She has been much better today and the headache is improved Denies any other symptoms associated with it She wants to be discharged today Review of Systems Review of Systems: All systems reviewed and are unremarkable except as noted below Physical Exam Physical Exam: Sitting on a chair without any acute distress Constitutional: well developed, well nourished and + obese; not ill appearing Eyes: PERRL, conjunctivae normal, anicteric sclerae ENMT: external ear and nose normal, oropharynx normal Neck: trachea midline, no thyromegaly Respiratory: no respiratory distress Auscultation: lungs clear to auscultation bilaterally Cardiovascular: Rate/Rhythm: regular rate and regular rhythm; not tachycardic Heart Sounds: normal S1 and normal S2; no murmur Extremities: no edema Gastrointestinal (Abdomen): Inspection/Auscultation: normal bowel sounds; abdomen not distended Percussion/Palpation: abdomen soft; abdomen nontender Neurologic: normal touch/pain/proprioception and moves all extremities; no focal motor deficits Psychiatric: A+Ox3, euthymic affect Lymphatic: no cervical or axillary lymphadenopathy Results & Data Results & Data Vital Signs (Past 12 Hours) Vital Signs Temp Pulse Pulse Resp BP Pulse Ox O2 Del Method 11/04/23 08:00 Room Air 11/04/23 07:32 63 11/04/23 07:21 36.6 C 68 20 101/62 97 Room Air 11/04/23 03:20 36.3 C L 77 20 135/82 95 Room Air Laboratory Results [facility] 11/04/23 05:25 Sodium 140 Potassium 4.1 D Chloride 106 Carbon Dioxide 26 BUN 67 H Creatinine 1.35 H Glucose 175 H Calcium 9.5 Medications Administered Current Inpatient Medications Acetaminophen (Acetaminophen 325 Mg Tab) 650 mg PO Q4H PRN PRN Reason: Pain or Fever Stop: 11/29/23 22:18 Last Admin: 11/03/23 21:24 Dose: 650 mg Albuterol (Albuterol Hfa 8 Gm Inhaler) 2 puffs INH Q6H PRN PRN Reason: Shortness Of Breath Or Wheezin Stop: 11/29/23 23:30 Lipase/Protease/Amylase (Pancreaze (Lipase 16,800u) Cap) 5 cap PO TIDM CATE Stop: 11/30/23 07:59 Last Admin: 11/04/23 08:39 Dose: 5 cap Calcitriol (Calcitriol 0.25 Mcg Capsule) 0.5 mcg PO BID CATE Stop: 11/29/23 22:18 Last Admin: 11/04/23 08:40 Dose: 0.5 mcg Calcium Carbonate (Calcium Carbonate 500 Mg Chewable Tab) 1,500 mg PO TID CATE Stop: 11/30/23 08:59 Last Admin: 11/04/23 08:45 Dose: 1,500 mg Cetirizine HCl (Cetirizine Hcl 10 Mg Tablet) 10 mg PO DAILY CATE Stop: 12/03/23 08:59 Last Admin: 11/04/23 08:41 Dose: 10 mg Cyanocobalamin (Cyanocobalamin (B-12) 500 Mcg Tablet) 1,000 mcg PO DAILY CATE Stop: 11/30/23 08:59 Last Admin: 11/04/23 08:41 Dose: 1,000 mcg Dexamethasone (Dexamethasone 4 Mg Tab) 4 mg PO BID [facility]; Taper Stop: 11/05/23 20:59 Last Admin: 11/04/23 08:41 Dose: 4 mg Duloxetine HCl (Duloxetine Hcl 60 Mg Cap) 60 mg PO QAM CATE Stop: 11/30/23 08:59 Last Admin: 11/04/23 08:41 Dose: 60 mg Enoxaparin Sodium (Enoxaparin Inj 40 Mg/0.4 Ml Syr) 40 mg SQ Q24H [facility] Stop: 11/30/23 05:59 Last Admin: 11/04/23 05:27 Dose: 40 mg Fluticasone/Vilanterol (Fluticasone/Vilanterol 200/25mcg 14 Puffs/Inhaler) 1 puffs INH DAILY [facility] Stop: 11/30/23 08:59 Last Admin: 11/04/23 08:46 Dose: 1 puffs Heparin Sodium (Porcine) (Heparin 100 Unit/Ml 5ml Flush) 5 ml FLUSH PRN PRN PRN Reason: Flush Stop: 11/30/23 04:33 Last Admin: 11/04/23 05:27 Dose: 5 ml Ceftriaxone Sodium 2,000 mg/ (Dextrose) 50 mls @ 100 mls/hr IV Q24H [facility]; Protocol Stop: 11/05/23 14:29 Last Infusion: 11/03/23 17:24 Dose: Infused Levothyroxine Sodium (Levothyroxine Sodium 88 Mcg Tablet) 88 mcg PO DAILYBB [facility] Stop: 11/30/23 06:29 Last Admin: 11/04/23 05:27 Dose: 88 mcg Miscellaneous (Order Awaiting Action: Colesevelam [Welchol] 625 Mg Tablet) 1 each N/A QS [facility] Stop: 11/30/23 00:00 Last Admin: 11/04/23 08:48 Dose: Not Given Montelukast Sodium (Montelukast Sodium 10 Mg Tablet) 10 mg PO HS [facility] Stop: 11/29/23 22:18 Last Admin: 11/03/23 21:26 Dose: 10 mg Ondansetron HCl (Ondansetron Inj 2 Mg/Ml 2 Ml Vial) 4 mg IV Q6H PRN PRN Reason: Nausea Stop: 11/29/23 22:18 Last Admin: 10/30/23 23:28 Dose: 4 mg Oxycodone/Acetaminophen (Oxycodone/Acetaminophen 5mg/325mg Tab) 1 tab PO Q6H PRN PRN Reason: Mod-Sev Pain (Scale 4-10) Stop: 11/13/23 22:18 Last Admin: 11/04/23 05:30 Dose: 1 tab Pantoprazole Sodium (Pantoprazole 40 Mg Tab) 40 mg PO BID [facility] Stop: 11/29/23 22:44 Last Admin: 11/04/23 08:40 Dose: 40 mg Polyethylene Glycol (Polyethylene (Miralax) 17 Gm Pack) 17 gm PO DAILY PRN PRN Reason: Constipation Stop: 11/29/23 22:18 Potassium Chloride (Potassium Chloride Crtab 20 Meq Tabcr) 20 meq PO TID CATE Stop: 12/02/23 20:59 Last Admin: 11/04/23 08:40 Dose: 20 meq Pregabalin (Pregabalin 100 Mg Cap) 100 mg PO TID CATE Stop: 11/29/23 22:18 Last Admin: 11/04/23 08:47 Dose: 100 mg Risperidone (Risperidone 2 Mg Tablet) 2 mg PO HS [facility] Stop: 11/29/23 22:18 Last Admin: 11/03/23 21:26 Dose: 2 mg Ropinirole HCl (Ropinirole Hcl 0.25 Mg Tablet) 0.5 mg PO HS [facility] Stop: 11/29/23 22:18 Last Admin: 11/03/23 21:25 Dose: 0.5 mg Rosuvastatin Calcium (Rosuvastatin Calcium 10 Mg Tab) 10 mg PO QAM [facility] Stop: 11/30/23 08:59 Last Admin: 11/04/23 08:41 Dose: 10 mg Topiramate (Topiramate 25 Mg Tab) 25 mg PO HS [facility] Stop: 12/03/23 20:59 Last Admin: 11/03/23 21:24 Dose: 25 mg Torsemide (Torsemide 20 Mg Tab) 20 mg PO BID17 [facility] Stop: 11/30/23 16:59 Last Admin: 11/02/23 12:07 Dose: 20 mg Valacyclovir HCl (Valacyclovir Hcl 500 Mg Tablet) 500 mg PO QAM [facility] Stop: 11/30/23 08:59 Last Admin: 11/04/23 08:40 Dose: 500 mg Zinc Acetate/Diphenhydramine (Diphenhydramine 2%/Zinc 0.1% Cream 28.4gm Tube) 1 appln EXT QID PRN PRN Reason: itchy skin Stop: 12/02/23 02:35 Last Admin: 11/04/23 05:31 Dose: 1 appln (1) Headache Headache chronicity pattern: unspecified pattern Headache type: unspecified Intractability: not intractable Qualified Code(s): R51.9 - Headache, unspecified
--- NOTE | 2023-11-05 07:59 | Discharge Summary ---
Date of Service November 05, 2023 Admission HPI Per Admitting Provider Patient is 73-year-old female with PMH diastolic heart failure, hypothyroidism, sinus node dysfunction, history of gastric bypass, pancreatic insufficiency, chronic pain, neuropathy, sleep apnea, depression, and others listed below presented to ER with complaint of headache and muscle cramps. History obtained from patient as well as inpatient and outpatient chart review. Patient reports has had intermittent headache for the past 6 weeks. She reports gets headaches almost daily and headaches are generalized. States last couple of days headaches have been daily and lasting all day. Patient reports has been using Tylenol 3 times daily sometimes with relief and sometimes without. She states intermittent blurry vision. Denies any current blurry vision. Does follow with neurology, recently seen 10/26/2023 and it was recommended patient reduce Tylenol use as concern for rebound headaches. Patient also reports has been having muscle cramps for 3 weeks. She reports chronic neuropathy which she feels is at baseline. Patient states that she has been having trouble sleeping however upon further discussion patient falls asleep at 7 PM and sleeps until 2 AM and then cannot fall back asleep. Patient reports chronic abdominal pain that has been ongoing for years. Denies any increased abdominal pain. Reports prior history of chronic diarrhea and states has been on Welchol with control of loose bowels. She denies any recent loose bowels. Denies any recent vomiting. Reports chronic rhinorrhea and denies any increase or sinus tenderness. Denies any recent medication changes. Denies chest pain to this provider. Reports drinks 48 ounces of water and 32-48 ounces diet Coke daily. Denies fever/chills, diaphoresis, dizziness, syncope, diplopia, vision loss, neck pain, increased SOB, palpitations, cough, sore throat, increased weakness, extremity edema, rashes, urinary symptoms. Ambulates with walker at baseline. In ER today was found to have K: 2.5 Admission Exam Per Admitting Provider Physical Exam: General: no acute distress, obese Head: normocephalic, atraumatic Eyes: PERRL, EOM's intact, conjunctiva non-injected, anicteric ENT: normal inspection external ears, nose, mucous membranes moist Neck: supple, trachea midline Lungs: clear, no respiratory distress, no wheezing/rhonchi/rales CV: RRR, no pretibial edema Abd: protuberant, normal BS, soft, non-tender to palpation Ext: no cyanosis, no calf tenderness Neuro: A&O x 3, no focal deficits noted, flat affect Skin: warm, dry Principal Diagnosis Chronic headache-no significant cause found, electrolyte imbalance Discharge Exam Sitting on a chair without any acute distress Constitutional well developed, well nourished and + obese; not ill appearing Eyes PERRL, conjunctivae normal, anicteric sclerae ENMT external ear and nose normal, oropharynx normal Neck trachea midline, no thyromegaly Respiratory no respiratory distress Auscultation: lungs clear to auscultation bilaterally Cardiovascular Rate/Rhythm: regular rate and regular rhythm; not tachycardic Heart Sounds: normal S1 and normal S2; no murmur Extremities: no edema Gastrointestinal (Abdomen) Inspection/Auscultation: normal bowel sounds; abdomen not distended Percussion/Palpation: abdomen soft; abdomen nontender Neurologic normal touch/pain/proprioception and moves all extremities; no focal motor deficits Psychiatric A+Ox3, euthymic affect Lymphatic no cervical or axillary lymphadenopathy Discharge Data Allergies Allergy/AdvReac Type Severity Reaction Status Date / Time bethanechol Allergy Intermediate RASH, Verified 10/30/23 18:22 "FEELS FUNNY" Cephalosporins Allergy Intermediate RASH, Verified 10/30/23 18:22 DIARRHEA levofloxacin Allergy Intermediate RASH,TURNED Verified 10/30/23 18:22 RED Sulfa (Sulfonamide Allergy Intermediate Generalized Verified 10/30/23 18:22 Antibiotics) Rash ertapenem Allergy Mild RASH Verified 10/30/23 18:22 atropine Allergy Unknown ON [facility] MED Verified 10/30/23 18:22 LIST clindamycin Allergy Unknown Unknown Verified 10/30/23 18:22 dipyridamole Allergy Unknown PERSANTINE--ON Verified 10/30/23 18:22 [facility] MED LIST droperidol Allergy Unknown Unknown Verified 10/30/23 18:22 meperidine [From Demerol] Allergy Unknown ? ALLERGY Verified 10/30/23 18:22 ON [facility] MED LIST promethazine Allergy Unknown UNKNOWN Verified 10/30/23 18:22 tobramycin Allergy Unknown UNKNOWN Verified 10/30/23 18:22 aspirin AdvReac Severe BLEEDING Verified 10/30/23 18:22 doxycycline AdvReac Severe severe Verified 10/30/23 18:22 Diarrhea, nausea metolazone AdvReac Severe ELECTROLYTE Verified 10/30/23 18:22 ISSUES--HYPOKALEMIA bupropion AdvReac Intermediate NERVOUS Verified 10/30/23 18:22 REACTION cephalexin AdvReac Intermediate GI SYMPTOMS Verified 10/30/23 18:22 morphine AdvReac Intermediate NERVOUS Verified 10/30/23 18:22 REACTION TO IT nitrofurantoin AdvReac Intermediate Vomiting Verified 10/30/23 18:22 [From Macrobid] prochlorperazine AdvReac Intermediate NERVOUS Verified 10/30/23 18:22 REACTION tedizolid AdvReac Intermediate GI SYMPTOMS Verified 10/30/23 18:22 venlafaxine [From Effexor] AdvReac Intermediate NERVOUS Verified 10/30/23 18:22 REACTION lamotrigine AdvReac Unknown tremors Verified 10/30/23 18:22 Consultations 10/30/23 18:06 ED Decision to Admit Stat 11/01/23 14:22 Consult Neurology Routine Ordered Studies 10/30/23 14:[address] [CT head/brain wo con] Stat 11/02/23 10:16 MRI Angio Head [MR angio head wo con] Urgent MRI Brain [MR brain wo/w con] Urgent Hospital Course (1) Headache: Intermittent LESLIE x [address] head: no acute findings No focal deficits on exam Discussed trying to avoid medication overuse at home Saw neurology 10/26/23 and was recommended patient may try low dose magnesium supplementation Will hold vibegron currently as may be contributing to LESLIE also Appreciate neurology input and recommendation MRI of the head with and without contrast-unremarkable MRA of the head did not show any evidence of abnormality She continues to have headache Will start dexamethasone as advised by the neurologist Will continue with the current management and observe Headache is a little better with dexamethasone Will add topiramate 25 mg nightly for 1 week and then twice daily to continue for prevention of headache Headache is much better and she will be discharged home this afternoon (2) Acute hypokalemia: Patient is 73-year-old female with PMH diastolic heart failure, hypothyroidism, sinus node dysfunction, history of gastric bypass, pancreatic insufficiency, chronic pain, neuropathy, sleep apnea, depression, and others listed below presented to ER with complaint of headache and muscle cramps. In ER afebrile, vitals stable. K: 2.5. Magnesium: 1.9. Troponin: 16.7 Likely secondary to chronic diuretic use-use of torsemide and metolazone Has been getting regular potassium supplement Potassium level remains low Will continue to supplement and monitor Potassium level remains low and will supplement more Demadex has been on hold and metolazone has been discontinued Hypokalemia has been corrected We will continue with the potassium supplement with the diuretic (3) Chronic diastolic (congestive) heart failure: Appears euvolemic Resume torsemide. Metolazone on hold. Remains hypokalemic Will hold torsemide for now Torsemide will be restarted on discharge (4) Acute UTI: Patient reports increasing frequency urgency. Urinalysis suggestive of infection. Urine culture growing E. coli-came out to be pansensitive Started on ceftriaxone. Will continue current antibiotic for now and changed to oral Keflex on discharge Antibiotic for 2-3 more days orally (5) Hypothyroidism: Continue levothyroxine TSH within normal range. (6) Pancreatic insufficiency: History gastric bypass Prior history chronic diarrhea, now controlled Continue Creon, colesevelam (7) Neuropathy: Continue pregabalin (8) Sleep apnea: LARRY Previously on bipap but history noncompliance DVT Prophylaxis Lovenox SQ Full Code as per discussion with pt Follows with Dr Marx for routine care Has an appointment with Dr. Medrano Will be discharged this afternoon Please note the above document was generated using voice recognition software. It may contain grammatical, syntax or spelling errors. Any formal questions or concerns about the content, text or information contained within the body of this dictation should be directly addressed to the provider for clarification Total Time Total Time Spent Total Time Spent (In Minutes): 40 minutes Discharge Plan Discharge Items Patient Disposition: Home - Self-Care Reason For Visit: HYPOKALEMIA Discharge Diagnosis: Chronic headache-no significant cause found, electrolyte imbalance Condition on Discharge: Fair Activity: Resume your previous activity Non-emergency contact: Primary Care Provider Call non-emergency contact if: you have any medication questions and your symptoms worsen Follow-up/Referrals: Petra Marx MD [Primary Care Provider] - (Date & Time 11/09/2023 1:40 PM Provider Petra Marx MD Department Family [facility] ) Rani Hernandez PA-C [Physician Java Tech Lead] - (Date & Time 12/08/2023 12:40 PM Provider Rani Hernandez PA-C Department Neurology [facility] ) Diet: Heart Healthy and Low Sodium (2gm) Addtl Attending Provider Instructions: Please take precautions to avoid falls Take your medications as advised Please keep appointments with your healthcare provider You should have a follow-up with neurologist through your PCP Pending Studies at Discharge: No Stand-Alone Forms: My [facility] [employer], Smoking Cessation Medications and DC Order Prescriptions: New Anti-Itch(diphenhyd) with Zinc 2-0.1 % Cream 1 applic EXT QID PRN (Reason: itching) Qty: 30 0RF dexamethasone 4 mg Tablet 4 mg PO UD Qty: 3 0RF Rx Instructions: 1 p.o. twice daily for 1 day and 1 p.o. the next day topiramate 25 mg Tablet 25 mg PO HS Qty: 54 0RF Rx Instructions: 1 p.o. daily daily for 6 days and then 1 p.o. twice daily. potassium chloride 20 mEq Tablet,Er Particles/Crystals 20 meq PO TID Qty: 90 0RF Continued colesevelam [WelChol] 625 mg tablet 625 mg PO TID Patient Comments: before meals , morning , noon and night montelukast [Singulair] 10 mg tablet 10 mg PO HS Prilosec OTC 20 mg tablet,delayed release (DR/EC) 20 mg PO BID Rx Instructions: morning and bedtime calcitriol 0.5 mcg capsule 0.5 mcg PO BID Qty: 60 5RF Rx Instructions: morning and bedtime levothyroxine 88 mcg tablet 88 mcg PO QAM Qty: 30 3RF pregabalin 100 mg capsule 100 mg PO TID 30 Days Qty: 90 2RF Gemtesa 75 mg tablet 75 mg PO DAILY Qty: 90 1RF albuterol sulfate 90 mcg/actuation aerosol powdr breath activated 2 inh INH Q6H PRN (Reason: Shortness Of Breath Or Wheezing) Qty: 1 3RF torsemide 20 mg tablet 20 mg PO BID calcium carbonate [Calcium 600] 600 mg calcium (1,500 mg) tablet 1,200 mg PO TID Prolia 60 mg/mL syringe 60 mg subcut Q180D Qty: 1 1RF ipratropium-albuterol 0.5 mg-3 mg(2.5 mg base)/3 mL Solution For Nebulization 3 ml INHALATION Q4H PRN (Reason: Shortness Of Breath Or Wheezing) Creon 24,000-76,000 -120,000 unit Capsule,Delayed Release(Dr/Ec) 4 cap PO TID Patient Comments: before meals valacyclovir 500 mg tablet 500 mg PO QAM ropinirole 0.5 mg tablet 0.5 mg PO HS Rx Instructions: bedtime with food metolazone 2.5 mg Tablet 2.5 mg PO WK Rx Instructions: THURSDAYS, FOLLOWED IN 20 MINUTES BY DAILY TORSEMIDE. oxycodone-acetaminophen [Percocet] 5-325 mg Tablet 1 tab PO Q6H PRN (Reason: Pain) cyanocobalamin (vitamin B-12) [Vitamin B-12] 1,000 mcg Tablet 1,000 mcg PO DAILY nitroglycerin [Nitrostat] 0.4 mg Tablet, Sublingual 0.4 mg sublingual DIRECTED PRN (Reason: Chest Pain) Rx Instructions: 1 under tongue as needed for chest pain may repeat up to 3 times. [id number] Tablet 1 tab PO DAILY rosuvastatin 10 mg tablet 10 mg PO QAM fluticasone furoate-vilanterol [Breo Ellipta] 200-25 mcg/dose Blister With Device 1 inh INHALATION DAILY risperidone 2 mg Tablet 2 mg PO HS cetirizine 10 mg tablet 10 mg PO DAILY duloxetine 60 mg Capsule,Delayed Release(Dr/Ec) 60 mg PO QAM Qty: 30 0RF Discontinued potassium chloride 20 mEq tablet extended release 20 meq PO BID Qty: 180 3RF Rx Instructions: PER EXT MED HX-LAST FILLED 10/08/23, PER [facility]--POTASSIUM CITRATE 15 MEQ BID. potassium citrate 15 mEq tablet extended release 15 meq PO BID Discharge Orders: Discharge Order (Routine); Ordered 11/04/23 Ordered By: Whit Roman Admission Data Admit Date/Time: 10/30/23 18:57 Attending Provider: Whit Roman Admit Provider: Dee Mccullough Primary Care Provider: Petra Marx Other Providers: Dee Mccullough; Rani Hernandez; Yaron Mayer; Rani Varela; Danny Rubi; Enio Elkins; Edward Buck; Kevon Tenorio; Rach Lee; Frankie Juarez; Ervin Yanes; Lowell Pittman; Tim Day; Dinora Hogan; Serenity Wallace; Kevon Byrd; Souleymane Rodarte Other Interventions: Discharge Summary Assessment (RN) Last Done: 11/04/23 11:47
== END 2023-11-04 13:20 | disposition home or self-care (01) | DRG 103 ==
LOC: ED 14:08 → EDINP 18:57 → SUATTDRO 18:57 → 4W 22:01

== ENCOUNTER 2023-11-29 19:29 | Inpatient (IN) ==
--- OUTSIDE RECORDS SUMMARY | 2023-11-29 19:36 | External Medical Summary | Summary of Care ---
Author Name Unknown Organization [facility] Address [address] [place] [address] Phone [phone] Care Team Providers Care Clinical Resource Coordinator Name Role Phone Petra Marx MD Primary Care Provider Reason for Visit * Reason Onset Date Comments Advice 11/26/2023 Encounter Details Date Type Department Care Team (Late st Contact Info) Description 11/26/2023 Telephone Gastroenterology, [facility] [address] [facility] [place] [address] Services, Scheduling [address] [place] [address] Advice Allergies Active Allergy Reactions Criticality Noted Date Comments Aminoglycosides Nebcin Atropine ? allergy to Atropine Cephalosporins Keflin Dipyridamole Persantine Meperidine And Related ? allergy to Demerol Metolazone 10/03/2021 Severe hypokalemia Parasympathomimetics Urecholine Piperacillin Sod-Tazobactam So Rash 02/03 Prochlorperazine Salicylates ASA Sulfa Antibiotics Bactrim Venlafaxine 02/03/2013 Nervous reaction documented as of this encounter (statuses as of 11/26/2023) Medications Medication Sig Dispensed Refills Start Date End Date Status Maurice Carbajal In Vitro Strip (Glucose Blood)Indications: Type 2 diabetes mellitus (HCC) Use up to 4 times a day E11.9 100 Strip 11 02/09/2021 Active Pregabalin 100 MG Oral Capsule (Lyrica) Take 1 Capsule by mouth in the morning and 1 Capsule at noon and 1 Capsule in the evening. 90 Capsule 0 12/26/2022 Active Centrum Silver Oral Tablet Take 1 Tablet by mouth in the morning. 100 Tablet 2 12/26/2022 Active valACYclovir HCl 500 MG Oral Tablet (Valtrex) Take 1 Tablet by mouth in the morning. In the morning.. 28 Tablet 11 12/26/2022 Active Vitamin B-12 1000 MCG Oral Tablet (Cyanocobalamin) Take 1 Tablet by mouth in the morning. 90 Tablet 0 12/26/2022 Active Creon [id number] UNIT Oral Capsule Delayed Release Particles (Pancrelipase (Gfa-Nxtr-Mpoi)) TAKE 4 CAPSULES THREE TIMES DAILY 720 Capsule 5 03/26/2023 Active metOLazone 2.5 MG Oral Tablet (Zaroxolyn) TAKE ONE TABLET ONCE WEEKLY ON THURSDAY IN THE MORNING FOLLOWED IN 20 MIN BY DAILY SCHEDULED TORSEMIDE 15 Tablet 03/26/2023 Active Vibegron 75 MG Oral Tablet (Gemtesa) 1 Tablet. 0 05/22/2022 Active Cetirizine HCl 10 MG Oral Tablet (ZyrTEC) As needed 0 03/12/2023 Active Albuterol Sulfate HFA 108 (90 Base) MCG/ACT Inhalation Aerosol SolutionIndication s:Moderate persistent asthma with exacerbation Inhale 2 Puffs by mouth every 6 hours as needed for Wheezing. 18 g 3 06/17/2023 Active Torsemide 20 MG Oral Tablet (Demadex)Indicatio ns:Chronic diastolic heart failure (HCC) Take 1 tab twice daily 360 Tablet 3 06/22/2023 Active risperiDONE 2 MG Oral Tablet (RisperDAL)Indicat ions:Severe episode of recurrent major depressive disorder, without psychotic features (HCC) Take 1 Tablet by mouth at bedtime. 30 Tablet 06/26/2023 Active Ipratropium-Albute rol 0.5-2.5 (3) MG/3ML Inhalation Solution (Duoneb) Inhale 3 mL via nebulizer every 4 hours as needed for Wheezing. 360 mL 06/29/2023 Active Montelukast Sodium 10 MG Oral Tablet (Singulair) Take 1 Tablet by mouth at bedtime. 30 Tablet 06/29/2023 Active Omeprazole 20 MG Oral Capsule Delayed Release (PriLOSEC) TAKE ONE CAPSULE EVERY DAY and TAKE ONE CAPSULE AT BEDTIME 60 Capsule 06/29/2023 Active Rosuvastatin Calcium 10 MG Oral Tablet (Crestor) Take 1 Tablet by mouth in the morning. 30 Tablet 5 06/29/2023 Active Calcitriol 0.5 MCG Oral Capsule (Rocaltrol) Take 1 Capsule by mouth in the morning and 1 Capsule before bedtime. 60 Capsule 5 06/30/2023 Active rOPINIRole HCl 0.5 MG Oral Tablet Take 1 Tablet by mouth at bedtime. With food. 90 Tablet 11 07/20/2023 Active Additional Information Patient not taking.Reported on 11/09/2023 DULoxetine HCl 60 MG Oral Capsule Delayed Release Particles (Cymbalta)Indicati ons:Major depressive disorder, recurrent, moderate (HCC) Take 1 Capsule by mouth in the morning. Do not cut, crush or chew. 30 Capsule 5 07/20/2023 Active Calcium Carb-Cholecalcifer ol 600-10 MG-MCG Oral TabletIndications: Postsurgical malabsorption, not elsewhere classified Take 2 Tablets by mouth in the morning and 2 Tablets at noon and 2 Tablets before bedtime. 180 Tablet 5 07/20/2023 Active Prolia 60 MG/ML Subcutaneous Solution Prefilled Syringe (Denosumab) Inject 60 mg subcutaneously every 180 days 1 mL 1 07/22/2023 Active Colesevelam HCl 625 MG Oral Tablet (Welchol)Indicatio ns:Diarrhea due to malabsorption Take 1 Tablet by mouth in the morning and 1 Tablet at noon and 1 Tablet in the evening. 270 Tablet 1 08/14/2023 Active Breo Ellipta 200-25 MCG/ACT Inhalation Aerosol Powder Breath Activated Inhale 1 Puff by mouth daily. 0 09/02/2023 Active Nitroglycerin 0.4 MG Sublingual Tablet Sublingual (Nitrostat) Place 1 Tablet under the tongue as needed for Pain, Chest. May repeat 3 times. If chest pain continues, call 911. 25 Tablet 0 09/08/2023 Active Levothyroxine Sodium 88 MCG Oral Tablet (Levoxyl) Take 1 Tablet by mouth in the morning. 90 Tablet 1 09/19/2023 Active Topiramate 25 MG Oral Tablet (topAMAX) 1 Tablet in the morning. 1 tab by mouth daily x 6 days, then start 1 tab by mouth twice daily. 0 11/04/2023 Active lamoTRIgine 25 MG Oral Tablet (LaMICtal) Take 1 Tablet by mouth in the morning and 1 Tablet before bedtime. 1 tablet in the morning. 2 tablets at bedtime. 0 11/07/2023 Active Potassium Citrate ER 15 MEQ (1620 MG) Oral Tablet Extended Release Take 1 Tablet by mouth in the morning and 1 Tablet before bedtime. 0 Active Potassium Chloride Marla ER 20 MEQ Oral Tablet Extended ReleaseIndications :Hypokalemia Take 1 Tablet by mouth in the morning and 1 Tablet at noon and 1 Tablet before bedtime. 90 Tablet 11 11/07/2023 Active Amoxicillin 500 MG Oral Capsule (Amoxil) Take 1 Capsule by mouth in the morning and 1 Capsule at noon and 1 Capsule before bedtime. 0 11/19/2023 Active documented as of this encounter (statuses as of 11/26/2023) Active Problems Problem Noted Date Diagnosed Date Chronic diastolic congestive heart failure 11/09 Secondary hyperparathyroidism of renal origin Major depressive disorder, recurrent, in remissi on 11/09/2023 Hypoglycemia 06/29/2023 Last Assessment & Plan: Glucose 103 during visit. Reordered freestyle Larisa-patient had previously. Follows with endocrinology at [facility] Stage 3a chronic kidney disease 04/16/2023 COPD, group B, by GOLD 2017 classification 03/16 Overview: Per COPD GOLD Classification Last Assessment & Plan: Current Status : "Stable" for patient / At or near baseline Degree of Condition Awareness: Demonstrates very good awareness of condition but not disease course and/or prognosis "RED FLAG" COPD symptoms: Increased dyspnea on exertion ("I can't walk to the kitchen or up the stairs without coughing and wheezing", "My chest feels tight any time I move") Increased shortness of breath at rest ("I struggle to breathe even when watching TV", "I have to wear or turn up my oxygen just when I'm sitting on the couch") Cough ("I get a different kind of cough than what I' have every day") Medication Regimen All Classes - FABIANA Class D, Asthma/COPD Overlap - Inhaled Glucocorticoid-LABA Combination Inhaler Other: Montelukast Self-Management plan High frequency nebulizer treatments every 4-6 hours around the clock Utilize Flutter Device hourly while awake Other/Additional Comments: Call office Exacerbation plan Chest Xray Other/Additional Comments: Oral antibiotics and corticosteroids Hypothyroidism 01/13/2023 Hyperparathyroidism 01/13/2023 Age-related osteoporosis wit hout current pathological fracture 01/13/2023 Sick sinus syndrome 12/24/2022 S/P partial gastrectomy 12/24/2022 Cardiac pacemaker in situ 12/19/2022 Full code status 11/27/2022 Medical home patient encounter 09/30/2022 Pulmonary hypertension, unspecified 08/21/2022 Raynaud's disease without gangrene 07/17/2022 Gait disturbance 07/17/2022 Restless legs syndrome 06/27/2022 Last Assessment & Plan: Increase requip to 0.5 mg HS History of kidney stones 06/06/2022 Hypertensive heart and kidne y disease with chronic diastolic congestive heart failure and stage 3a chronic kidney disease 06/12/2021 Overview: Echo 08/2020: Interpretation Summary The primary indication after review was deemed appropriate and the examination was performed. Normal LV chamber size and wall thickness. Normal LV systolic function without regional wall motion abnormality. Calculated LV ejection Fraction = 57% (bi-plane method of discs). Grade 2 diastolic dysfunction. Trileaflet aortic valve with mild aortic valve sclerosis without stenosis. Mild aortic regurgitation. Mild mitral regurgitation. Mild left atrial enlargement. Last Assessment & Plan: Current Status: Actively exacerbating Degree of Condition Awareness: Demonstrates very good awareness of condition, disease course, and prognosis Current Heart Failure Classifications: With less than ordinary activity ([employer] CLASS III) "RED FLAG" HF Symptoms: Leg Swelling (Examples: "I can't wear certain socks or shoes", "My pants feel tight") Abdominal Bloating (Examples: "I can't wear certain pants", "My belly feels hard", "I look ") Increased dyspnea on exertion (Example: "I can't walk to the kitchen or up the stairs") Increased shortness of breath at rest (Example: "I struggle to breathe even when watching TV") Orthopnea (Examples: "I have to sleep with more pillows than usual", "I sleep worse than normal") Decreased urine output (Example: "I don't pee as much even with my water pills") Chronic Medication Regimen: Beta Edgar Therapy: No beta-edgar secondary to Cardiology decision, recent falls OLE Inhibitor/ARB Therapy: No OLE/ARB/ARNI secondary to: Cardiology decision, recommend starting Diuretic therapy: Torsemide 20 mg twice daily with metolazone 2.5 mg once weekly on Self - Management Plan Add additional 1 tab to afternoon dose of Torsemide Exacerbation Plan Anticipated IV Lasix dose: 80 mg CBC BMP Chest X-Ray Instructed patient to take additional 20 mg tablet torsemide today and recheck weight tomorrow. If still greater than 168 lb she can take an additional torsemide daily for up to 3 days. 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 Hyperlipidemia, unspecified 01/24/2020 Last Assessment & Plan: Continue crestor 10 mg daily Gastro-esophageal reflux disease without esophag itis 10/11/2019 Other chronic pancreatitis 11/26/2018 Other atherosclerosis of love anahi arteries of extremities, bilateral legs 11/20/2017 Primary osteoarthritis of left knee 10/19/2017 Lumbar degenerative disc disease 10/19/2017 Mitral valve disorder GENERALIZED ANXIETY DIS Last Assessment & Plan: Well controlled -continue Risperdal, lorazepam prn documented as of this encounter (statuses as of 11/26/2023) Resolved Problems Problem Noted Date Diagnosed Date Resolved Date COPD, group B, by GOLD 2017 classification 09/15/2022 12/05/2022 Overview: Per COPD GOLD Classification Chronic respiratory failure with hypoxia and hypercapnia 08/12/2021 10/03/2021 Last Assessment & Plan: From chart review, it appears her SOB is multi-factorial including both cardiac and pulm issues. I think it would be good to have some objective data alongside the subjective IVR piece - especially pulse ox and pulse to go along w/ sx if she can't weigh. Scheduled for Metolazone tomorrow and if she doesn't respond I would move RNCM visit up to 08/15 Nasal congestion 06/12/2021 10/31/2021 Stage 3b chronic kidney disease 12/28/2020 11/26/2022 Acute cystitis without hematuria 10/14/2020 08/09/2021 Pyelonephritis 05/23/2020 08/09/2021 JAVI (acute kidney injury) 05/23/2020 Overview: Acute. Cellulitis of left arm 05/23/202006/18 Protein-calorie malnutrition 05/23/2020 08/09/2021 Kidney stones 05/08/2020 06/29/2023 Sepsis due to Escherichia co li with acute renal failure and septic shock 05/07/2020 0 LVH (left ventricular hypertrophy) 05/02/2020 06/29/2023 Heart failure, diastolic, due to CAD, chronic 04/11/20 20 06/29/2023 Unstable angina 01/24/2020 04/11/2020 Simple chronic bronchitis 10/11/2019 Overview: In Check dial performed to assess inhaler technique: 11/25/19 Name of inhalers Albuterol Pass: Yes at 40L/min and Trelegy Ellipta Pass: Yes at 35L/min. Encourage to take deep breaths, use aero chamber, and rinse after steroid. Test performed by Lazarus LINOTYPIST CPFT Moderate persistent asthma w ithout complication 10/11/2019 08/09/2021 Overview: In Check dial performed to assess inhaler technique: 11/25/19 Name of inhalers Albuterol Pass: Yes at 40L/min and Trelegy Ellipta Pass: Yes at 35L/min. Encourage to take deep breaths, use aero chamber, and rinse after steroid. Test performed by Lazarus GRANADOS CPFT Ulcer of left lower extremit y, limited to breakdown of skin 10/11/2019 01/24/2020 Major depressive disorder, s silverio episode, unspecified 10/11/2019 03/28/2020 Overview: More specific code in use. History of wrist fracture 06/30/2019 Overview: Open Colles fx Historical. Chronic diastolic heart failure 05/13/2019 06/29/2023 COPD (chronic obstructive pu lmonary disease) with chronic bronchitis 04/26/2019 06/29/2023 Overview: In Check dial performed to assess inhaler technique: 11/25/19 Name of inhalers Albuterol Pass: Yes at 40L/min and Trelegy Ellipta Pass: Yes at 35L/min. Encourage to take deep breaths, use aero chamber, and rinse after steroid. Test performed by Lazarus GRANADOS CPFT Groupl B, by GOLD 2017 classification Last Assessment & Plan: O2 stable -continue singulair, trelegy, duonebs prn Fracture, Colles, left, open 05/21/2018 06/30/2019 Need for pneumococcal vaccination 05/21/2018 05/09/2020 Non-pressure chronic ulcer o f other part of right foot limited to breakdown of skin 11/20/2017 11/26/2018 Hyperparathyroidism 11/20/2017 01/24/20 20 Ankylosing spondylitis of un specified sites in spine 11/20/2017 05/01/2023 Moderate persistent asthma with exacerbation 8 08/09/2021 Overview: In Check dial performed to assess inhaler technique: 11/25/19 Name of inhalers Albuterol Pass: Yes at 40L/min and Trelegy Ellipta Pass: Yes at 35L/min. Encourage to take deep breaths, use aero chamber, and rinse after steroid. Test performed by Lazarus LINOTYPIST CPFT Acute. Anemia 10/19/2017 08/09/2021 Malabsorption 10/19/2017 10/31/2021 Chronic congestive heart failure 10/19/2017 06/20/2019 ADVANCE DIRECTIVE INFORMATION 12/08/2006 03/28/2020 Overview: No, Advance Directive brochure offered , patient declined. Historical. OSTEOARTHROS NOS-L-LEG 10/08/200405/28 ABNORMAL GRANULATION NEC Overview: Acute. Menopause 03/28/2020 Overview: Historical. Acute gastritis 11/30/2008 Overview: Resolved per Benign Acute Dxs Protocol #3 ICD-10 update of inactive term Peptic ulcer 11/26/2018 INTEST POSTOP NONABSORB 06/05 STOMACH FUNCTION DIS NEC Major depressive disorder, r ecurrent, moderate 11/04/2023 Overview: More specified condition on pl Last Assessment & Plan: Symptoms stable on duloxetine documented as of this encounter (statuses as of 11/26/2023) Immunizations Name Administration Dates Next Due COVID-19 mRNA, LNP-s, No Pre serve, 2-Dose Series (LAN-Power) 07/12/2021,05/16/2021,11/18/2020,11/04 COVID-19, LNP-s, No Preserve , Josue-sucrose, Ages 12+ (Pfizer) 05/16/2022 Covid-19, Mrna, Lnp-s, Pf, B ivalent, 30 Mcg, IM, 12 yrs and above (LAN-Power) 08/06/2022 Pneumococcal Conjugate Vacc, 13 Valent (Prevnar) 05/21/2018 Pneumococcal Polysaccharide PPV23 (Pneumovax) 07/06/2019 Seasonal Influenza, Quadriva lent Hd (Fluzone Hd) 06/09/2023,06/12/2022 Seasonal Influenza, Quadriva lent Hd, 65+ Yrs 06/26/2020 Seasonal Influenza, Quadriva lent, No Preserve, IM 08/05/2018 Seasonal Influenza, Trivalen t, Adjuvanted, 65+ yrs 07/06/2019 Zoster Vaccine Recombinant (Shingrix) 04/11/2020 ,10/11/2019 documented as of this encounter Social History Tobacco Use Types Packs/Day Years Used Date Smoking Tobacco: Never Smokeless Tobacco: Never Alcohol Use Standard Drinks/Week Comments No 0 (1 standard drink = 0.6 oz pur e alcohol) PHQ-2 Answer Date Recorded PHQ Adult Total Score 0 09/08/2023 Hunger Vital Sign Answer Date Recorded Within the past 12 months, y ou worried that your food would run out before you got the money to buy more. Never true 11/19/19 24 Within the past 12 months, t he food you bought just didn't last and you didn't have money to get more. Never true 11/19/2023 Sex and Gender Information Value Date Recorded Sex Assigned at Female 09/03/2022 1:25 PM EST Gender Identity Female 09/03/2022 1:25 PM EST Sexual Orientation Straight 09/03/2022 1: 25 PM EST Job Start Date Occupation Industry Not on file Not on file Not on file documented as of this encounter Miscellaneous Notes * Telephone Encounter - Little Tenorio RN - 11/26/2023 4:23 PM EST Patient notified. Verbalizes full understanding. * Telephone Encounter - Breann Jerome CRNP - 11/26/2023 4:02 PM EST Pls inform pt to discuss with her provider who prescribed the Amoxicillin if she should continue this med or have it changed. I will go ahead and order stool cx and Cdiff to r/o infections anyway KHOI Bean * Telephone Encounter - Little Tenorio RN - 11/26/2023 3:53 PM EST Has been on the antibiotic since last and has another week to take of it. Is on it because she had "4 teeth removed." Is taking Welchol 3 times a day. Is moving bowels 1-12 times a day. No blood in stools. Is not using a probiotic, instructed to do so. Explained that this could be a side effect of antibiotic but if symptoms persist, may need checked for c-diff. * Telephone Encounter - Ekta Solis OSA - 11/26/2023 3:01 PM EST Pt requesting advice stated she is currently on Antibiotics and whatever she eats it goes right through her. She has severe diarrhea, nausea, cramps, bloating and gassy, and constantly burping for a week and started taking the antibiotic. Thank you documented in this encounter Plan of Treatment Upcoming Encounters Date Type Department Care Team (Late st Contact Info) Description 11/27/2023 1:00 PM EST Home Visit Care Coordination and Integration [address] [facility] [place] [address] [facility] [employer] Manager [address] [place] [address] [place] [address] 12/02/2023 11:45 AM EST Immunization/Inje ction Hematology/Oncology Treatment, [place] [address] [place] [phone] Nurse, Med [address] [facility] [place] [address] 12/08/2023 12:40 PM EST Office Visit Neurology [facility] [address] [facility] [place] [address] Rani Hernandez PA-C [address] [facility] [place] [address] 12/21/2023 2:10 PM EDT Hospital Encounter [facility], Operating Room [facility] [address] [place] [phone] Yared Bennett DO [address] [place] [phone] 12/21/2023 2:10 PM EDT - 12/21/2023 3:00 PM EDT Surgery [facility], Operating Room [facility] [address] [place] [phone] Yared Bennett, DO [address] [place] [phone] DESTROY LUMBAR SACRAL NERVE IMAGING SINGLE 02/01/2024 12:30 PM EDT Imaging Radiology [address] [place] [address] 02/22/2024 1:40 PM EDT Office Visit Family [facility] [address] [place] [address] Petra Marx MD [address] [place] [address] 05/06/2024 3:20 PM EDT Office Visit Rheumatology [address] [place] [phone] [facility] [place] [address] 09/14/2024 11:00 AM EST Nurse Only Ancillary [address] [place] [address] [place], Nurse Annual [address] [place] [address] Scheduled Orders Name Type Priority Associated Diagnoses Orde r Schedule CLOSTRIDIUM DIFFICILE, PCR Lab Routine Diarrhea, unspecified type Expected: 11/26/2023, Expires: 11/26/2024 GASTROINTESTINAL PATHOGEN PANEL, STOOL Lab Routine Diarrhea, unspecified type Expected: 11/26/2023, Expires: 11/26/2024 Scheduled Procedures Name Priority Associated Diagnoses Date/Ti me DESTROY LUMBAR SACRAL NERVE IMAGING SINGLE Spondylosis of lumbar region without myelopathy or radiculopathy 12/21/2023 2:10 PM EDT DESTROY LUMBAR SACRAL NERVE IMAGING ADD'L Spondylosis of lumbar region without myelopathy or radiculopathy 12/21/2023 2:10 PM EDT Health Maintenance Due Date Last Done Comments Cologuard 1997 Sigmoidoscopy 1997 Fecal Occult Blood Test 08/09/2011 08/09/20 10, 11/14/2009, 12/16/2007, Additional history exists *BISPHONATE OR OTHER ACCEPTABLE MEDICATION NEEDED FOR OSTEOPOROSIS (REFER TO SMARTSET #1146) 01/15/2023 Mammogram 01/30/2024 01/29/2023, 01/04, 11/25/2021, Additional history exists Albumin/Creatinine Ratio 05/01/2024 05/01/2023, 03/05 CKD PHOS USE SMARTSET 46681 05/01/202404/05, 03/21/2022, 03/20/2021, Additional history exists GFR 05/09/2024 11/09/2023, 10/07, 11/03/2023, Additional history exists Depression Screening 09/08/2024 09/08/2023, 01/28/20 18 TSH 10/31/2024 10/31/2023, 12/02/2023, 07/30/2022, Additional history exists CKD HGB USE SMARTSET 57330 11/02/202411/02, 09/08/2023, 09/08/2023, Additional history exists O2 ASSESSMENT COMPLETED IN PAST YEAR FOR COPD 11/19/2024 11/19/2023 DXA Scan 07/23/2025 07/23/2023, 07/05, 03/18/2022, Additional history exists Colonoscopy 08/11/2026 08/11/2016 Colorectal Cancer Screening 08/11/2026 DTaP,Tdap,and Td Vaccines (2 - Td or Tdap) 05/21/2028 05/21/2018 (Declined) Pneumococcal Vaccine: 65+ Years Completed 07/06/2019, 05/21/2018 Zoster Vaccines Completed 04/11/2020, 10/11/2019 Alpha-1 Antitrypsin Completed 06/18/2020 VITAMIN D LEVEL ONCE IN A LIFETIME-USE SMARTSET# [id number] Completed 05/01/2023, 12/28/2014, 04/26/2012, Additional history exists Influenza Vaccine (FLU shot) Completed 02/2023, 06/12/2022, 06/26/2020, Additional history exists COVID-19 Vaccine Completed 07/01/2023, 11/2021, 05/16/2022, Additional history exists GARDASIL-HPV IMMUNIZATION SERIES Aged Out No longer eligible based on patient's age to complete this topic Hepatitis B Aged Out No longer eligi ble based on patient's age to complete this topic MENINGOCOCCAL (MENACTRA/MENVEO) Aged Out No longer eligible based on patient's age to complete this topic documented as of this encounter Medical Devices Implanted Type Area Property Assessment Monitor Device Identifier Shelf Expiration Date Model / Serial / Lot Port Power Mri W/8fr Cath - [id number] Implanted:Qty : 1 on 11/02/2017 by Ignacio Guevara MD at [facility] Right: Internal Jugular CR BARD : PERIPHERAL VASCULAR 07/04/2019 [id number] / / [id number] documented as of this encounter Visit Diagnoses Diagnosis Diarrhea, unspecified type- Primary Spondylosis of lumbar region without myelopathy or radiculopathy Lumbosacral spondylosis without myelopathy documented in this encounter Advance Directives Healthcare Agents on File Name Relationship Healthcare Agent Relationship Communication Ivonne Michelle Other - (no specific identity) Health Care Agent Care Teams Clinical Resource Coordinator Relationship Specialty Start Date End Date Petra Marx MD [address] [facility] [place] [address] PCP - General Internal Medicine 11/09/23 documented as of this encounter
--- OUTSIDE RECORDS SUMMARY | 2023-11-29 19:36 | External Medical Summary | Summary of Care ---
Author Name Unknown Organization [facility] Address [address] [place] [address] Phone [phone] Care Team Providers Care Scheduling Manager Name Role Phone Petra Marx MD Primary Care Provider Encounter Details Date Type Department Care Team (Late st Contact Info) Description 11/27/2023 1:00 PM EST Home Visit Care Coordination and Integration [address] [place] [address] Dacia Calvin, Community Health Kids Activities Coach [address] [place] [address] [place] [address] Allergies Active Allergy Reactions Criticality Noted Date Comments Aminoglycosides Nebcin Atropine ? allergy to Atropine Cephalosporins Keflin Dipyridamole Persantine Meperidine And Related ? allergy to Demerol Metolazone 10/03/2021 Severe hypokalemia Parasympathomimetics Urecholine Piperacillin Sod-Tazobactam So Rash 02/03 Prochlorperazine Salicylates ASA Sulfa Antibiotics Bactrim Venlafaxine 02/03/2013 Nervous reaction documented as of this encounter (statuses as of 11/27/2023) Medications Medication Sig Dispensed Refills Start Date End Date Status ManpreetTouch Raven In Vitro Strip (Glucose Blood)Indications: Type 2 [...] morning. 90 Tablet 0 12/26/2022 Active Creon 99264-28479 UNIT Oral Capsule Delayed Release Particles (Pancrelipase (Sdr-Rliz-Ghxe)) TAKE 4 CAPSULES THREE TIMES DAILY 720 Capsule 5 03/26/2023 Active metOLazone 2.5 MG Oral Tablet (Zaroxolyn) TAKE ONE TABLET ONCE WEEKLY ON THURSDAY IN THE MORNING FOLLOWED IN 20 MIN BY DAILY SCHEDULED TORSEMIDE 15 Tablet 5 03/26/2023 Active Vibegron 75 MG Oral Tablet [...] as of this encounter (statuses as of 11/27/2023) Active Problems Problem Noted Date Diagnosed Date Chronic diastolic congestive heart failure 11/09 Secondary hyperparathyroidism of renal origin Major depressive disorder, recurrent, in remissi on 11/09/2023 Hypoglycemia 06/29/2023 Last Assessment & Plan: Glucose 103 during visit. Reordered freestyle Larisa-patient had previously. Follows with endocrinology at [facility] Stage 3a chronic kidney disease 04/16/2023 COPD, [...] as of this encounter (statuses as of 11/27/2023) Resolved Problems Problem Noted Date Diagnosed Date [...] rinse after steroid. Test performed by Lazarus RN LICENSED PRACTICAL CPFT Moderate persistent asthma w ithout complication 10/11/2019 08/09/2021 Overview: In Check dial performed to assess inhaler technique: 11/25/19 Name of inhalers Albuterol Pass: Yes at 40L/min and Trelegy Ellipta Pass: Yes at 35L/min. Encourage to take deep breaths, use aero chamber, and rinse after steroid. Test performed by Lazarus RN LICENSED PRACTICAL CPFT Ulcer of left lower extremit y, [...] rinse after steroid. Test performed by Lazarus RN LICENSED PRACTICAL CPFT Groupl B, by GOLD 2017 classification [...] rinse after steroid. Test performed by Lazarus RN LICENSED PRACTICAL CPFT Acute. Anemia 10/19/2017 08/09/2021 Malabsorption 10/19/2017 [...] as of this encounter (statuses as of 11/27/2023) Immunizations Name Administration Dates Next Due COVID-19 mRNA, LNP-s, No Pre serve, 2-Dose Series ([employer]) 07/12/2021,05/16/2021,11/18/2020,11/04 COVID-19, LNP-s, No Preserve , Josue-sucrose, Ages 12+ (Pfizer) 05/16/2022 Covid-19, Mrna, Lnp-s, Pf, B ivalent, 30 Mcg, IM, 12 yrs and above ([employer]) 08/06/2022 Pneumococcal Conjugate Vacc, 13 Valent (Prevnar) [...] on file documented as of this encounter Last Filed Vital Signs Vital Sign Reading Time Taken Comments Blood Pressure 108/62 11/27/2023 1:35 PM EST Pulse 66 11/27/2023 1:35 PM EST Temperature 36.5 C (97.7 F) 11/27/2023 1:35 PM ES T Respiratory Rate 16 11/27/2023 1:35 PM EST Oxygen Saturation 96% 11/27/2023 1:35 PM EST Inhaled Oxygen Concentration - - Weight - - Height - - Body Mass Index - - documented in this encounter Progress Notes * Dacia Calvin, Community Health Kids Activities Coach - 11/27/2023 1:00 PM EST Telemedicine visit: No Community Health Kids Activities Coach (TIMMY) documentation: [facility] home visit for vitals recheck. BP 108/62 (BP Site: Right Arm, BP Position: Sitting, BP Cuff Size: Regular) | Pulse 66 | Temp 36.5 C (97.7 F) | Resp 16 | SpO2 96% Per chart review, patient called in to [facility] yesterday with complaints of frequent loose stools. GI placed orders to check for pathogen and c diff. Patient reports she hasnt moved bowels since this AM. Noticed she often has a BM after drinking a glass of water. Reports poor appetite. Gets Moms Meals - makes herself eat. Sometimes gets an entire meal down. Taking fluids well. Sips coke through the day to help maintain blood sugar. Snacking on crackers. Reports occasional nausea comes and goes real fast, no vomiting. Provided patient with specimen collection supplies. Hat placed over toilet. Advised patient to callCHA if she has BM before end of day, and TIMMY will take in to lab. Otherwise, patient will need to wait until Thursday evening to attempt to collect a specimen. Advised to call in to [facility] if obtained, and they will schedule a staff member to shredder picker the specimen. documented in this encounter Plan of Treatment Upcoming Encounters Date Type Department Care Team (Latest Contact Info) Description 12/02/2023 11:45 AM EST Immunization/Injec tion Hematology/Oncology Treatment, [place] [address] [place] [phone] Nurse, Med [address] [facility] [place] [address] 12/08/2023 12:40 PM EST Office Visit Neurology [facility] [address] [facility] [place] [address] Rani Hernandez PA-C [address] [facility] [place] [address] 12/21/2023 2:10 PM EDT Hospital Encounter OR [facility], Operating Room [facility] [address] [place] [phone] Yared Bennett DO [address] [place] [phone] 12/21/2023 2:10 PM EDT - 12/21/2023 3:00 PM EDT Surgery OR [facility], Operating Room [facility] [address] [place] [phone] Yared Bennett DO [address] [place] [phone] DESTROY LUMBAR SACRAL NERVE IMAGING SINGLE 02/01/2024 12:30 PM EDT Imaging Radiology [address] [place] [address] 02/22/2024 1:40 PM EDT Office Visit Family [facility] [address] [place] [address] Petra Marx MD [address] [place] [address] 05/06/2024 3:20 PM EDT Office Visit Rheumatology [address] [place] [phone] Stef Maravilla MD [address] [place] [address] [place] [address] 09/14/2024 11:00 AM EST Nurse Only Ancillary [address] [place] [address] [place], Nurse [address] [place] [address] Scheduled Procedures Name Priority Associated Diagnoses Date/Ti [...] 05/01/2024 05/01/2023, 03/05 CKD PHOS USE SMARTSET 15230 05/01/202404/05, 03/21/2022, 03/20/2021, Additional history exists GFR 05/09/2024 11/09/2023, 10/07, 11/03/2023, Additional history exists Depression Screening 09/08/2024 09/08/2023, 01/28/20 18 TSH 10/31/2024 10/31/2023, 02/2023, 07/30/2022, Additional history exists CKD HGB USE SMARTSET 74452 11/02/202411/02, 09/08/2023, 09/08/2023, Additional history exists O2 [...] D LEVEL ONCE IN A LIFETIME-USE SMARTSET# 37748 Completed 05/01/2023, 12/28/2014, 04/26/2012, Additional history exists [...] this encounter Medical Devices Implanted Type Area Ct Scan Tech Device Identifier Shelf Expiration Date Model / Serial / Lot Port Power Mri W/8fr Cath - [id number] Implanted:Qty : 1 on 11/02/2017 by Ignacio Guevara MD at OR [facility] Right: Internal Jugular CR BARD : PERIPHERAL VASCULAR 07/04/2019 [id number] / / [id number] documented as of this encounter Advance Directives Healthcare Agents on File Name Relationship Healthcare Agent Relationship Communication Ivonnepetra Martinez Other - (no specific identity) Health Care Agent Care Teams Scheduling Manager Relationship Specialty Start Date End Date Petra Marx MD [address] [facility] [place] [address] PCP - General Internal Medicine 11/09/23 documented as of this encounter
--- OUTSIDE RECORDS SUMMARY | 2023-11-29 19:37 | External Medical Summary | Summary of Care ---
Author Name Unknown Organization [facility] Address [address] [place] [address] Phone [phone] Care Team Providers Care Service Support Representative Name Role Phone Petra Marx MD Primary Care Provider Reason for Visit * Reason Onset Date Comments No Show 11/25/2023 Encounter Details Date Type Department Care Team (Late st Contact Info) Description 11/25/2023 Telephone Family Practice [address] [facility] [place] [address] [place] [address] Frederick Reynaga DO [address] [place] [address] No Show Allergies Active Allergy Reactions Criticality Noted Date Comments Aminoglycosides Nebcin Atropine ? allergy to Atropine Cephalosporins Keflin Dipyridamole Persantine Meperidine And Related ? allergy to Demerol Metolazone 10/03/2021 Severe hypokalemia Parasympathomimetics Urecholine Piperacillin Sod-Tazobactam So Rash 02/03 Prochlorperazine Salicylates ASA Sulfa Antibiotics Bactrim Venlafaxine 02/03/2013 Nervous reaction documented as of this encounter (statuses as of 11/25/2023) Medications Medication Sig Dispensed Refills Start Date End Date Status OneTouch Raven In Vitro Strip (Glucose Blood)Indications: Type [...] morning. 90 Tablet 0 12/26/2022 Active Creon 38367-14524 UNIT Oral Capsule Delayed Release Particles (Pancrelipase (Bgi-Monq-Jgyt)) TAKE 4 CAPSULES THREE TIMES DAILY 720 [...] TAKE ONE CAPSULE AT BEDTIME 60 Capsule 5 06/29/2023 Active Rosuvastatin Calcium 10 MG Oral [...] as of this encounter (statuses as of 11/25/2023) Active Problems Problem Noted Date Diagnosed Date Chronic diastolic congestive heart failure 11/09 Secondary hyperparathyroidism of renal origin Major depressive disorder, recurrent, in remissi on 11/09/2023 Hypoglycemia 06/29/2023 Last Assessment & Plan: Glucose 103 during visit. Reordered freestyle Larisa-patient had previously. Follows with endocrinology at [facility] Stage 3a chronic kidney disease 04/16/2023 COPD, [...] as of this encounter (statuses as of 11/25/2023) Resolved Problems Problem Noted Date Diagnosed Date [...] rinse after steroid. Test performed by Lazarus CAD LIBRARIAN CPFT Moderate persistent asthma w ithout complication 10/11/2019 08/09/2021 Overview: In Check dial performed to assess inhaler technique: 11/25/19 Name of inhalers Albuterol Pass: Yes at 40L/min and Trelegy Ellipta Pass: Yes at 35L/min. Encourage to take deep breaths, use aero chamber, and rinse after steroid. Test performed by Lazarus CAD LIBRARIAN CPFT Ulcer of left lower extremit y, [...] rinse after steroid. Test performed by Lazarus CAD LIBRARIAN CPFT Groupl B, by GOLD 2017 classification [...] rinse after steroid. Test performed by Lazarus CAD LIBRARIAN CPFT Acute. Anemia 10/19/2017 08/09/2021 Malabsorption 10/19/2017 [...] as of this encounter (statuses as of 11/25/2023) Immunizations Name Administration Dates Next Due COVID-19 mRNA, LNP-s, No Pre serve, 2-Dose Series ([employer]) 07/12/2021,05/16/2021,11/18/2020,11/04 COVID-19, LNP-s, No Preserve , Josue-sucrose, Ages 12+ ([employer]) 05/16/2022 Covid-19, Mrna, Lnp-s, Pf, B ivalent, 30 Mcg, IM, 12 yrs and above ([employer]) 08/06/2022 Influenza, Whole Virus 08/19/2000 Pneumococcal Conjugate Vacc, 13 Valent (Prevnar) 05/21/2018 [...] encounter Miscellaneous Notes * Telephone Encounter - Logan Moreno MED ASSIST - 11/25/2023 12:53 PM EST Called and rescheduled with Patient for 12/02. She is aware and understanding. * Telephone Encounter - Ruth King RN - 11/25/2023 12:38 PM EST Pt missed her port flush appointment today. Please call her to reschedule. Thanks documented in this encounter Plan of Treatment Upcoming Encounters Date Type Department Care Team (Latest Contact Info) Description 12/02/2023 11:45 AM EST Immunization/Injec tion Hematology/Oncology Treatment, [place] [address] [place] [address] Nurse, Med [address] [place] [address] 12/08/2023 12:40 PM EST Office Visit Neurology [facility] [place] [address] [place] [address] Rani Hernandez PA-C [address] [place] [address] 12/21/2023 2:10 PM EDT Hospital Encounter [facility], Operating Room [facility] [address] [place] [phone] Yared Bennett, [address] [place] [phone] 12/21/2023 2:10 PM EDT - 12/21/2023 3:00 PM EDT Surgery OR [facility], Operating Room [facility] [address] [place] [phone] Yared Bennett, [address] [place] [phone] DESTROY LUMBAR SACRAL NERVE IMAGING SINGLE 02/01/2024 12:30 PM EDT Imaging Radiology [address] [place] [address] 02/22/2024 1:40 PM EDT Office Visit Family [facility] [address] [place] [address] Petra Marx MD [address] [place] [address] 05/06/2024 3:20 PM EDT Office Visit Rheumatology [address] [place] [phone] Stef Maravilla MD [address] [place] [address] [place] [address] 09/14/2024 11:00 AM EST Nurse Only Ancillary Juarez Deluca [address] [place] [address] [place], Nurse [address] [place] [address] Scheduled Procedures Name Priority Associated Diagnoses Date/Ti [...] 05/01/2024 05/01/2023, 03/05 CKD PHOS USE SMARTSET 88339 05/01/202404/05, 03/21/2022, 03/20/2021, Additional history exists GFR 05/09/2024 11/09/2023, 10/07, 11/03/2023, Additional history exists Depression Screening 09/08/2024 09/08/2023, 01/28/20 18 TSH 10/31/2024 10/31/2023, 02/2023, 07/30/2022, Additional history exists CKD HGB USE SMARTSET 90862 11/02/202411/02, 09/08/2023, 09/08/2023, Additional history exists O2 [...] D LEVEL ONCE IN A LIFETIME-USE SMARTSET# 56322 Completed 05/01/2023, 12/28/2014, 04/26/2012, Additional history exists [...] this encounter Medical Devices Implanted Type Area Journey Lineman Device Identifier Shelf Expiration Date Model / Serial / Lot Port Power Mri W/8fr Cath - [id number] Implanted:Qty : 1 on 11/02/2017 by Ignacio Guevara MD at OR [facility] Right: Internal Jugular CR BARD : PERIPHERAL VASCULAR 07/04/2019 [id number] / / [id number] documented as of this encounter Advance Directives Healthcare Agents on File Name Relationship Healthcare Agent Relationship Communication Ivonne Michelle Other - (no specific identity) Health Care Agent Care Teams Service Support Representative Relationship Specialty Start Date End Date Petra Marx MD [address] [place] [address] PCP - General Internal Medicine 11/09/23 documented as of this encounter
--- OUTSIDE RECORDS SUMMARY | 2023-11-29 19:37 | External Medical Summary | Summary of Care ---
Author Name Unknown Organization [facility] Address [address] [place] [address] Phone [phone] Care Team Providers Care Otolaryngology Teacher Name Role Phone Petra Marx MD Primary Care Provider Encounter Details Date Type Department Care Team (Late st Contact Info) Description 11/24/2023 Population Health External Data Unspecified Department Allergies Active Allergy Reactions Criticality Noted Date [...] morning. 90 Tablet 0 12/26/2022 Active Creon 07629-72332 UNIT Oral Capsule Delayed Release Particles (Pancrelipase (Pyj-Clkw-Oigg)) TAKE 4 CAPSULES THREE TIMES DAILY 720 Capsule 03/26/2023 Active metOLazone 2.5 MG Oral Tablet [...] Take 1 tab twice daily 360 Tablet 06/22/2023 Active risperiDONE 2 MG Oral Tablet [...] by mouth in the morning. 30 Tablet 06/29/2023 Active Calcitriol 0.5 MCG Oral Capsule [...] had previously. Follows with endocrinology at [facility] Stage 3a chronic kidney disease 04/16/2023 COPD, [...] rinse after steroid. Test performed by Lazarus HAND TRUCKER CPFT Moderate persistent asthma w ithout complication 10/11/2019 08/09/2021 Overview: In Check dial performed to assess inhaler technique: 11/25/19 Name of inhalers Albuterol Pass: Yes at 40L/min and Trelegy Ellipta Pass: Yes at 35L/min. Encourage to take deep breaths, use aero chamber, and rinse after steroid. Test performed by Lazarus HAND TRUCKER CPFT Ulcer of left lower extremit y, [...] rinse after steroid. Test performed by Lazarus HAND TRUCKER CPFT Groupl B, by GOLD 2017 classification [...] rinse after steroid. Test performed by Lazarus HAND TRUCKER CPFT Acute. Anemia 10/19/2017 08/09/2021 Malabsorption 10/19/2017 [...] mRNA, LNP-s, No Pre serve, 2-Dose Series ([employer]) 07/12/2021,05/16/2021,11/18/2020,11/04 COVID-19, LNP-s, No Preserve , Josue-sucrose, Ages 12+ (Pfizer) 05/16/2022 Covid-19, Mrna, Lnp-s, Pf, B ivalent, 30 Mcg, IM, 12 yrs and above ([employer]) 08/06/2022 Pneumococcal Conjugate Vacc, 13 Valent (Prevnar) [...] on file documented as of this encounter Plan of Treatment Upcoming Encounters Date Type Department Care Team (Latest Contact Info) Description 12/02/2023 11:45 AM EST Immunization/Injec tion Hematology/Oncology Treatment, [place] [address] [place] [phone] Nurse, Med 200 [facility] [place] [address] 12/08/2023 12:40 PM EST Office Visit Neurology [facility] [address] [facility] [place] [address] Rani Hernandez PA-C 200 [facility] [place] [address] 12/21/2023 2:10 PM EDT Hospital Encounter [facility], Operating Room [facility] [address] [place] [phone] Yared Bennett DO [address] [place] [phone] 12/21/2023 2:10 PM EDT - 12/21/2023 3:00 PM EDT Surgery OR [facility], Operating Room [facility] [address] [place] [phone] Yared Bennett DO [address] [place] [phone] DESTROY LUMBAR SACRAL NERVE IMAGING SINGLE 02/01/2024 12:30 PM EDT Imaging Radiology [address] [place] [address] 02/22/2024 1:40 PM EDT Office Visit [facility] [address] [place] [address] Petra Marx MD [address] [place] [address] 05/06/2024 3:20 PM EDT Office Visit Rheumatology [address] [place] [phone] Stef Maravilla MD [address] [place] [address] [place] [address] 09/14/2024 11:00 AM EST Nurse Only Ancillary [address] [place] [address] [place], Nurse [address] [place] [address] Scheduled Procedures Name Priority Associated Diagnoses Date/Ti [...] 05/01/2024 05/01/2023, 03/05 CKD PHOS USE SMARTSET 23154 05/01/202404/05, 03/21/2022, 03/20/2021, Additional history exists GFR 05/09/2024 11/09/2023, 10/07, 11/03/2023, Additional history exists Depression Screening 09/08/2024 09/08/2023, 01/28/20 18 TSH 10/31/2024 10/31/2023, 02/2023, 07/30/2022, Additional history exists CKD HGB USE SMARTSET 54620 11/02/202411/02, 09/08/2023, 09/08/2023, Additional history exists O2 [...] D LEVEL ONCE IN A LIFETIME-USE SMARTSET# 72687 Completed 05/01/2023, 12/28/2014, 04/26/2012, Additional history exists [...] this encounter Medical Devices Implanted Type Area Clerk Analyst Device Identifier Shelf Expiration Date Model / Serial / Lot Port Power Mri W/8fr Cath - [id number] Implanted:Qty : 1 on 11/02/2017 by Ignacio Guevara MD at OR [facility] Right: Internal Jugular CR BARD : PERIPHERAL VASCULAR 07/04/2019 [id number] / / [id number] documented as of this encounter Advance Directives Healthcare Agents on File Name Relationship Healthcare Agent Relationship Communication Ivonne Michelle Other - (no specific identity) Health Care Agent Care Teams Otolaryngology Teacher Relationship Specialty Start Date End Date Petra Marx MD [address] [place] [address] PCP - General Internal Medicine 11/09/23 documented as of this encounter
--- OUTSIDE RECORDS SUMMARY | 2023-11-29 19:37 | External Medical Summary | Summary of Care ---
Author Name Unknown Organization [facility] Address [address] [place] [address] Phone [phone] Care Team Providers Care Director Women Name Role Phone Aaron Marx MD Primary Care Provider Reason for Visit * Reason Onset Date Comments [facility]: Maintenance 11/19/2023 Encounter Details Date Type Department Care Team (Late st Contact Info) Description 11/19/2023 Telephone [facility], [facility] [address] [place] [address] [facility], Nurse [facility] [address] [place] [address] [facility]: Maintenance Allergies Active Allergy Reactions Criticality Noted Date [...] Refills Start Date End Date Status OneTouch Verio In Vitro Strip (Glucose Blood)Indications :Type 2 diabetes mellitus (HCC) Use up to 4 times a day E11.9 100 Strip 11 05/08/202 1 Active Pregabalin 100 MG Oral Capsule (Lyrica) Take 1 Capsule by mouth in the morning and 1 Capsule at noon and 1 Capsule in the evening. 90 Capsule 0 3 Active Centrum Silver Oral Tablet Take 1 Tablet by mouth in the morning. 100 Tablet 2 3 Active valACYclovir HCl 500 MG Oral Tablet (Valtrex) Take 1 Tablet by mouth in the morning. In the morning.. 28 Tablet 11 3 Active Vitamin B-12 1000 MCG Oral Tablet (Cyanocobalamin) Take 1 Tablet by mouth in the morning. 90 Tablet 0 3 Active Creon 40516-72546 UNIT Oral Capsule Delayed Release Particles (Pancrelipase (Buz-Bsmv-Eejq)) TAKE 4 CAPSULES THREE TIMES DAILY 720 Capsule 5 3 Active metOLazone 2.5 MG Oral Tablet (Zaroxolyn) TAKE ONE TABLET ONCE WEEKLY ON THURSDAY IN THE MORNING FOLLOWED IN 20 MIN BY DAILY SCHEDULED TORSEMIDE 15 Tablet 5 3 Active Vibegron 75 MG Oral Tablet (Gemtesa) 1 Tablet. 0 2 Active Cetirizine HCl 10 MG Oral Tablet (ZyrTEC) As needed 0 3 Active Albuterol Sulfate HFA 108 (90 Base) MCG/ACT Inhalation Aerosol SolutionIndicatio ns:Moderate persistent asthma with exacerbation Inhale 2 Puffs by mouth every 6 hours as needed for Wheezing. 18 g 3 3 Active Torsemide 20 MG Oral Tablet (Demadex)Indicati ons:Chronic diastolic heart failure (HCC) Take 1 tab twice daily 360 Tablet 3 3 Active risperiDONE 2 MG Oral Tablet (RisperDAL)Indica tions:Severe episode of recurrent major depressive disorder, without psychotic features (HCC) Take 1 Tablet by mouth at bedtime. 30 Tablet 5 3 Active Ipratropium-Albut roshni 0.5-2.5 (3) MG/3ML Inhalation Solution (Duoneb) Inhale 3 mL via nebulizer every 4 hours as needed for Wheezing. 360 mL 3 3 Active Montelukast Sodium 10 MG Oral Tablet (Singulair) Take 1 Tablet by mouth at bedtime. 30 Tablet 5 3 Active Omeprazole 20 MG Oral Capsule Delayed Release (PriLOSEC) TAKE ONE CAPSULE EVERY DAY and TAKE ONE CAPSULE AT BEDTIME 60 Capsule 5 3 Active Rosuvastatin Calcium 10 MG Oral Tablet (Crestor) Take 1 Tablet by mouth in the morning. 30 Tablet 5 3 Active Calcitriol 0.5 MCG Oral Capsule (Rocaltrol) Take 1 Capsule by mouth in the morning and 1 Capsule before bedtime. 60 Capsule 5 3 Active rOPINIRole HCl 0.5 MG Oral Tablet Take 1 Tablet by mouth at bedtime. With food. 90 Tablet 11 3 Active Additional Information Patient not taking.Reported on 11/09/2023 DULoxetine HCl 60 MG Oral Capsule Delayed Release Particles (Cymbalta)Indicat ions:Major depressive disorder, recurrent, moderate (HCC) Take 1 Capsule by mouth in the morning. Do not cut, crush or chew. 30 Capsule 5 3 Active Calcium Carb-Cholecalcife rol 600-10 MG-MCG Oral TabletIndications :Postsurgical malabsorption, not elsewhere classified Take 2 Tablets by mouth in the morning and 2 Tablets at noon and 2 Tablets before bedtime. 180 Tablet 5 3 Active Prolia 60 MG/ML Subcutaneous Solution Prefilled Syringe (Denosumab) Inject 60 mg subcutaneously every 180 days 1 mL 1 3 Active Colesevelam HCl 625 MG Oral Tablet (Welchol)Indicati ons:Diarrhea due to malabsorption Take 1 Tablet by mouth in the morning and 1 Tablet at noon and 1 Tablet in the evening. 270 Tablet 1 3 Active Breo Ellipta 200-25 MCG/ACT Inhalation Aerosol Powder Breath Activated Inhale 1 Puff by mouth daily. 0 3 Active Nitroglycerin 0.4 MG Sublingual Tablet Sublingual (Nitrostat) Place 1 Tablet under the tongue as needed for Pain, Chest. May repeat 3 times. If chest pain continues, call 911. 25 Tablet 0 3 Active Levothyroxine Sodium 88 MCG Oral Tablet (Levoxyl) Take 1 Tablet by mouth in the morning. 90 Tablet 1 3 Active Topiramate 25 MG Oral Tablet (topAMAX) 1 Tablet in the morning. 1 tab by mouth daily x 6 days, then start 1 tab by mouth twice daily. 0 01/31/202 4 Active lamoTRIgine 25 MG Oral Tablet (LaMICtal) Take 1 Tablet by mouth in the morning and 1 Tablet before bedtime. 1 tablet in the morning. 2 tablets at bedtime. 0 4 Active Potassium Citrate ER 15 MEQ (1620 MG) Oral Tablet Extended Release Take 1 Tablet by mouth in the morning and 1 Tablet before bedtime. 0 Active Potassium Chloride Marla ER 20 MEQ Oral Tablet Extended ReleaseIndication s:Hypokalemia Take 1 Tablet by mouth in the morning and 1 Tablet at noon and 1 Tablet before bedtime. 90 Tablet 11 4 Active oxyCODONE-Acetami nophen 5-325 MG Oral Tablet (Percocet)Indicat ions:Lumbar degenerative disc disease,Ankylosin g spondylitis of unspecified sites in spine (HCC) Take 1 Tablet by mouth every 6 hours as needed for Pain, Moderate or Pain, Severe. Ongoing therapy 30 Tablet 0 3 024 Discontinued documented as of this encounter (statuses as of 11/25/2023) Active Problems Problem Noted Date Diagnosed Date Chronic diastolic congestive heart failure 11/09 Secondary hyperparathyroidism of renal origin Major depressive disorder, recurrent, in remissi on 11/09/2023 Hypoglycemia 06/29/2023 Last Assessment & Plan: Glucose 103 during visit. Reordered freestyle Larisa-patient had previously. Follows with endocrinology at [facility] Stage 3a chronic kidney disease 04/16/2023 [...] Heart failure, diastolic, due to CAD, chronic 04/11/2006/29/2023 Unstable angina 01/24/2020 04/11/2020 Simple chronic bronchitis 10/11/2019 Overview: In Check dial performed to assess inhaler technique: 11/25/19 Name of inhalers Albuterol Pass: Yes at 40L/min and Trelegy Ellipta Pass: Yes at 35L/min. Encourage to take deep breaths, use aero chamber, and rinse after steroid. Test performed by [employer]azar[employer] RETAIL SUPPORT ASSOCIATE CPFT Moderate persistent asthma w ithout complication 10/11/2019 08/09/2021 Overview: In Check dial performed to assess inhaler technique: 11/25/19 Name of inhalers Albuterol Pass: Yes at 40L/min and Trelegy Ellipta Pass: Yes at 35L/min. Encourage to take deep breaths, use aero chamber, and rinse after steroid. Test performed by [employer] RETAIL SUPPORT ASSOCIATE CPFT Ulcer of left lower extremit y, [...] rinse after steroid. Test performed by [employer] RETAIL SUPPORT ASSOCIATE CPFT Groupl B, by GOLD 2017 classification [...] rinse after steroid. Test performed by [employer] RETAIL SUPPORT ASSOCIATE CPFT Acute. Anemia 10/19/2017 08/09/2021 Malabsorption 10/19/2017 [...] mRNA, LNP-s, No Pre serve, 2-Dose Series ([employer] 07/12/2021,05/16/2021,11/18/2020,11/04 COVID-19, LNP-s, No Preserve , Josue-sucrose, Ages 12+ ([employer] 05/16/2022 Covid-19, Mrna, Lnp-s, Pf, B ivalent, 30 Mcg, IM, 12 yrs and above ([employer] 08/06/2022 Influenza, Whole Virus 08/19/2000 Pneumococcal Conjugate [...] encounter Miscellaneous Notes * Telephone Encounter - Katie Giron MED ASSIST - 11/25/2023 9:53 AM EST message left for patient to call back. Can hem/onc nurse relay message while pt is in for port flush today? * Telephone Encounter - Katie Giron MED ASSIST - 11/23/2023 9:06 AM EST message left for patient to call back. * Addendum Note - Aaron Marx MD - 11/20/2023 5:17 PM ESTAddended by: AARON MARX on: 11/20/2023 05:17 PM Modules accepted: Orders * Telephone Encounter - Aaron Marx MD - 11/20/2023 5:06 PM EST The 11/01 note is her inpatient consult. Appears outpatient Neurology f/u is in three weeks. Patients' headache is a "medication overuse headache." This means that taking more pain medication will keep the headache going in the long run, even if it helps a little in the short run. Percocet appears to be left over from Rx from Dr Salgado in June - was not prescribed for herheadache. Not appropriate to refill this prescription. Since she cannot take NSAIDs (s/p partial gastrectomy) recommend: -- keep taking Topiramate 25mg twice a day. -- Limit tylenol to two extra strength tablets/day -- focus on hydration and making sure she's eating enough -- if she can wear her BiPap that will help -- call [facility] for further advice as this is their area of expertise. * Addendum Note - Katie Giron MED ASSIST - 11/20/2023 8:53 AM ESTAddended by: KATIE GIRON on: 11/20/2023 08:53 AM Modules accepted: Orders * Telephone Encounter - Katie Giron MED ASSIST - 11/20/2023 8:51 AM EST Patient saw neurology on 11/01-note placed in mailbox. She has a f/u with them on 12/08. She is askingfor a refill of her Percocet. * Telephone Encounter - Aaron Marx MD - 11/20/2023 8:03 AM EST Patient sees [facility]. Was supposed to have visit this week. Please see if she attended and if we can get visit note. * Telephone Encounter - Linda Snowden RN - 11/19/2023 3:58 PM EST TT message from TIMMY Calvin to put patient on for follow up phone calls tomorrow and weekend s/p HV for [facility] admission. Patient was admitted to [facility] 10/30-11/05 with headaches, UTI, hypokalemia. TIMMY had HV today. Patient reported headache, fatigue. Patient also had teeth extracted today. Vital signs T 36.8 P 60 R 16 O 92 Bp 100/62 Phone call placed to patient to who reports headache is improving. Patient reports intermittent headaches/blurry/cloudy vision, fatigue since hospitalization. Denies blurry vision present. Patient is taking Percocet for LESLIE with some effect. Patient also reports occasional dizziness/lightheadedness but denies at present. Patient has follow up with neuro next month. Patient uses walker for ambulation, encouraged same with slow position changes. Appetite poor, patient reports she is drinking adequate amount of fluids. Patient had four teeth extracted today. Denies any pain or bleeding. Patient tolerating fluids without issue, has not eaten anything since earlier. She was prescribed Amoxicillin TID x 10 days and Ibuprofen PRN. Instructed patient to cont current treatment plan, walker for all ambulation. Frequent sips of liquids to stay hydrated, weigh daily, monitor for bleeding s/p tooth extraction. Advised to call [facility] back with any new or worsening symptoms. Follow up phone call scheduled. TIMMY making return HV tomorrow afternoon Follow up phone call scheduled Routing to care team Linda Snowden RN, BSN [facility] quantitative analyst developer Navigator documented in this encounter Plan of Treatment Upcoming Encounters Date Type Department Care Team (Latest Contact Info) Description 11/25/2023 11:30 AM EST Immunization/Injec tion Hematology/Oncology Treatment, [place] [address] [place] [phone] Nurse, Med [address] [facility] [place] [address] 12/08/2023 12:40 PM EST Office Visit Neurology [facility] [place] [address] [place] [address] Rani Hernandez PA-C [address] [place] [address] 12/21/2023 2:10 PM EDT Hospital Encounter OR [facility], Operating Room [facility] [address] [place] [phone] Yared Bennett, [address] [place] [phone] 12/21/2023 2:10 PM EDT - 12/21/2023 3:00 PM EDT Surgery OR [facility], Operating Room [facility] [address] [place] [phone] Yared Bennett, [address] [place] [phone] DESTROY LUMBAR SACRAL NERVE IMAGING SINGLE 02/01/2024 12:30 PM EDT Imaging Radiology [address] [place] [address] 02/22/2024 1:40 PM EDT Office Visit Family [facility] [address] [place] [address] Aaron Marx MD [address] [place] [address] 05/06/2024 3:20 PM EDT Office Visit Rheumatology [address] [place] [phone] Stef Maravilla MD [address] [facility] [place] [address] 09/14/2024 11:00 AM EST Nurse Only Ancillary [place] [address] [place] [address] [place], Nurse Annual [address] [place] [address] Scheduled Procedures Name Priority Associated Diagnoses Date/Ti [...] 05/01/2024 05/01/2023, 03/05 CKD PHOS USE SMARTSET 50781 05/01/202404/05, 03/21/2022, 03/20/2021, Additional history exists GFR 05/09/2024 11/09/2023, 10/07, 11/03/2023, Additional history exists Depression Screening 09/08/2024 09/08/2023, 01/28/20 18 TSH 10/31/2024 10/31/2023, 12/02/2023, 07/30/2022, Additional history exists CKD HGB USE SMARTSET 55683 11/02/202411/02, 09/08/2023, 09/08/2023, Additional history exists O2 [...] D LEVEL ONCE IN A LIFETIME-USE SMARTSET# [id number] Completed 05/01/2023, 12/28/2014, 04/26/2012, Additional history exists [...] this encounter Medical Devices Implanted Type Area Building Performance Specialist Device Identifier Shelf Expiration Date Model / Serial / Lot Port Power Mri W/8fr Cath - [id number] Implanted:Qty : 1 on 11/02/2017 by Ignacio Guevara MD at OR [facility] Right: Internal Jugular CR BARD : PERIPHERAL VASCULAR 07/04/2019 [id number] / / [id number] documented as of this encounter Visit Diagnoses Diagnosis Lumbar degenerative disc disease Degeneration of lumbar or lumbosacral intervertebral disc Ankylosing spondylitis of unspecified sites in spine (HCC) Spondylosis of lumbar region without myelopathy or radiculopathy Lumbosacral spondylosis without myelopathy documented in this encounter Advance Directives Healthcare Agents on File Name Relationship Healthcare Agent Relationship Communication Ivonne Michelle Other - (no specific identity) Health Care Agent Care Teams Director Women Relationship Specialty Start Date End Date Aaron Marx MD [address] [place] [address] PCP - General Internal Medicine 11/09/23 documented as of this encounter
--- OUTSIDE RECORDS SUMMARY | 2023-11-29 19:37 | External Medical Summary | Summary of Care ---
Author Name Unknown Organization [facility] Address [address] [place] [address] Phone [phone] Care Team Providers Care Stringer Up Soldering Machine Name Role Phone Petra Marx MD Primary Care Provider Reason for Visit * Reason Onset Date Comments No Show 11/25/2023 Encounter Details Date Type Department Care Team (Late st Contact Info) Description 11/25/2023 Telephone Family Practice [address] [facility] [place] [address] [place] [address] Frederick Reynaga DO [address] [place] [address] No Show Allergies Active [...] morning. 90 Tablet 0 12/26/2022 Active Creon 40747-01232 UNIT Oral Capsule Delayed Release Particles (Pancrelipase ([employer]es[employer]Dhuo-Hchr)) TAKE 4 CAPSULES THREE TIMES DAILY 720 [...] Larisa-patient had previously. Follows with endocrinology at [facility] Stage 3a chronic kidney disease [...] after steroid. Test performed by Lazar[employer] HAND BLOCKER CPFT Moderate persistent asthma w ithout complication 10/11/2019 08/09/2021 Overview: In Check dial performed to assess inhaler technique: 11/25/19 Name of inhalers Albuterol Pass: Yes at 40L/min and Trelegy Ellipta Pass: Yes at 35L/min. Encourage to take deep breaths, use aero chamber, and rinse after steroid. Test performed by Lazarus HAND BLOCKER CPFT Ulcer of left lower extremit y, [...] after steroid. Test performed by Lazar[employer] HAND BLOCKER CPFT Groupl B, by GOLD 2017 classification [...] after steroid. Test performed by [employer]azar[employer] HAND BLOCKER CPFT Acute. Anemia 10/19/2017 08/09/2021 Malabsorption 10/19/2017 [...] mRNA, LNP-s, No Pre serve, 2-Dose Series ([employer]) 07/12/2021,05/16/2021,11/18/2020,11/04 COVID-19, LNP-s, No Preserve , Jsoue-sucrose, Ages 12+ ([employer]) 05/16/2022 Covid-19, Mrna, Lnp-s, Pf, B ivalent, 30 Mcg, IM, 12 yrs and above ([employer]) 08/06/2022 Influenza, Whole Virus 08/19/2000 Pneumococcal Conjugate [...] 11:45 AM EST Immunization/Injec tion Hematology/Oncology Treatment, [place] [address] [place] [address] Nurse, Med [address] [place] [address] 12/08/2023 12:40 PM EST Office Visit Neurology [facility] [place] [address] [place] [address] Rani Hernandez PA-C [address] [place] [address] 12/21/2023 2:10 PM EDT Hospital Encounter [facility], Operating Room [facility] [address] [place] [phone] Yared Bennett, [address] [place] [phone] 12/21/2023 2:10 PM EDT - 12/21/2023 3:00 PM EDT Surgery [facility], Operating Room [facility] [address] [place] [phone] Yared Bennett, [address] [place] [phone] DESTROY LUMBAR SACRAL NERVE IMAGING SINGLE 02/01/2024 12:30 PM EDT Imaging Radiology [address] [place] [address] 02/22/2024 1:40 PM EDT Office Visit Family [facility] [address] [place] [address] Petra Marx MD [address] [place] [address] 05/06/2024 3:20 PM EDT Office Visit Rheumatology [address] [place] [phone] Setf Maravilla MD [address] [place] [address] [place] [address] 09/14/2024 11:00 AM EST Nurse Only Ancillary [place] [address] [place] [address] [place], Nurse [address] [place] [address] Scheduled Procedures Name Priority Associated Diagnoses Date/Ti [...] 05/01/2024 05/01/2023, 03/05 CKD PHOS USE SMARTSET 86834 05/01/202404/05, 03/21/2022, 03/20/2021, Additional history exists GFR 05/09/2024 11/09/2023, 10/07, 11/03/2023, Additional history exists Depression Screening 09/08/2024 09/08/2023, 01/28/20 18 TSH 10/31/2024 10/31/2023, 02/2023, 07/30/2022, Additional history exists CKD HGB USE SMARTSET 25106 11/02/202411/02, 09/08/2023, 09/08/2023, Additional history exists O2 [...] D LEVEL ONCE IN A LIFETIME-USE SMARTSET# 28597 Completed 05/01/2023, 12/28/2014, 04/26/2012, Additional history exists [...] this encounter Medical Devices Implanted Type Area Chief Technologist Device Identifier Shelf Expiration Date Model / Serial / Lot Port Power Mri W/8fr Cath - [id number] Implanted:Qty : 1 on 11/02/2017 by Ignacio Guevara MD at OR [facility] Right: Internal Jugular CR BARD : PERIPHERAL VASCULAR 07/04/2019 [id number] / / [id number] documented as of this encounter Advance Directives Healthcare Agents on File Name Relationship Healthcare Agent Relationship Communication Ivonne Michelle Other - (no specific identity) Health Care Agent Care Teams Stringer Up Soldering Machine Relationship Specialty Start Date End Date Petra Marx MD [address] [place] [address] PCP - General Internal Medicine 11/09/23 documented as of this encounter
--- OUTSIDE RECORDS SUMMARY | 2023-11-29 19:37 | External Medical Summary | Summary of Care ---
Author Name Unknown Organization [facility] Address [address] [place] [address] Phone [phone] Care Team Providers Care Technical Customer Support Specialist Name Role Phone Aaron Marx MD Primary Care Provider Reason for Visit * Reason Onset Date Comments [facility]: Maintenance 11/19/2023 Encounter Details Date Type Department Care Team (Late st Contact Info) Description 11/19/2023 Telephone [facility], [facility] [address] [place] [address] [facility], Nurse [facility] [address] [place] [address] [facility]: Maintenance Allergies Active Allergy [...] morning. 90 Tablet 0 3 Active Creon 97209-11537 UNIT Oral Capsule Delayed Release Particles (Pancrelipase (Fdj-Qjuq-Ozjb)) TAKE 4 CAPSULES THREE TIMES DAILY 720 [...] Larisa-patient had previously. Follows with endocrinology at [facility] Stage 3a chronic kidney disease 04/16/2023 [...] rinse after steroid. Test performed by Lazarus BULK SEALER CPFT Moderate persistent asthma w ithout complication 10/11/2019 08/09/2021 Overview: In Check dial performed to assess inhaler technique: 11/25/19 Name of inhalers Albuterol Pass: Yes at 40L/min and Trelegy Ellipta Pass: Yes at 35L/min. Encourage to take deep breaths, use aero chamber, and rinse after steroid. Test performed by Lazarus BULK SEALER CPFT Ulcer of left lower extremit y, [...] rinse after steroid. Test performed by Lazarus BULK SEALER CPFT Groupl B, by GOLD 2017 classification [...] rinse after steroid. Test performed by Lazarus BULK SEALER CPFT Acute. Anemia 10/19/2017 08/09/2021 Malabsorption 10/19/2017 [...] mRNA, LNP-s, No Pre serve, 2-Dose Series (EcoSwarm) 07/12/2021,05/16/2021,11/18/2020,11/04 COVID-19, LNP-s, No Preserve , Josue-sucrose, Ages 12+ (EcoSwarm) 05/16/2022 Covid-19, Mrna, Lnp-s, Pf, B ivalent, 30 Mcg, IM, 12 yrs and above (EcoSwarm) 08/06/2022 Influenza, Whole Virus 08/19/2000 Pneumococcal Conjugate [...] encounter Miscellaneous Notes * Telephone Encounter - Noel Alexis RN - 11/25/2023 12:32 PM EST PT was a no show to appointment today. * Telephone Encounter - Katie Giron MED NEIDA - 11/25/2023 9:53 AM EST message left [...] her BiPap that will help -- call [facility] Neurology for further advice as this is their area of expertise. * Addendum Note - Katie Grion MED ASSIST - 11/20/2023 8:53 AM ESTAddended [...] - 11/20/2023 8:03 AM EST Patient sees [facility] Neurology. Was supposed to have visit this week. Please see if she attended and if we can get visit note. * Telephone Encounter - Linda Snowden RN - 11/19/2023 3:58 PM EST TT message from TIMMY Calvin to put patient on for follow up phone calls tomorrow and weekend s/p HV for [facility] admission. Patient was admitted to [facility] 10/30-11/05 with headaches, UTI, hypokalemia. TIMMY [...] bleeding s/p tooth extraction. Advised to call [facility] back with any new or worsening symptoms. Follow up phone call scheduled. TIMMY making return HV tomorrow afternoon Follow up phone call scheduled Routing to care team Linda Snowden RN, BSN [facility] video system repairer Navigator documented in this encounter Plan of Treatment Upcoming Encounters Date Type Department Care Team (Latest Contact Info) Description 12/08/2023 12:40 PM EST Office Visit Neurology [facility] [address] [place] [address] Rani Hernandez PA-C [address] [place] [address] 12/21/2023 2:10 PM EDT Hospital Encounter [facility], Operating Room [facility] [address] [place] [phone] Yared Bennett, [address] [place] [phone] 12/21/2023 2:10 PM EDT - 12/21/2023 3:00 PM EDT Surgery OR [facility], Operating Room [facility] [address] [place] [phone] Yared Bennett, [address] [place] [phone] DESTROY LUMBAR SACRAL NERVE IMAGING SINGLE 02/01/2024 12:30 PM EDT Imaging Radiology [address] [place] [address] 02/22/2024 1:40 PM EDT Office Visit Family [facility] [address] [place] [address] Aaron Marx MD [address] [place] [address] 05/06/2024 3:20 PM EDT Office Visit Rheumatology [address] [place] [phone] Stef Maravilla MD [address] [place], [place] [address] 09/14/2024 11:00 AM EST Nurse Only Ancillary [place] [address] [place] [address] [place], Nurse Annual [address] [place] [address] Scheduled Procedures Name Priority Associated Diagnoses Date/Ti [...] 05/01/2024 05/01/2023, 03/05 CKD PHOS USE SMARTSET 72855 05/01/202404/05, 03/21/2022, 03/20/2021, Additional history exists GFR 05/09/2024 11/09/2023, 10/07, 11/03/2023, Additional history exists Depression Screening 09/08/2024 09/08/2023, 01/28/20 18 TSH 10/31/2024 10/31/2023, 12/02/2023, 07/30/2022, Additional history exists CKD HGB USE SMARTSET 38753 11/02/202411/02, 09/08/2023, 09/08/2023, Additional history exists O2 [...] D LEVEL ONCE IN A LIFETIME-USE SMARTSET# 03495 Completed 05/01/2023, 12/28/2014, 04/26/2012, Additional history exists [...] this encounter Medical Devices Implanted Type Area Couture Dressmaker Device Identifier Shelf Expiration Date Model / Serial / Lot Port Power Mri W/8fr Cath - [id number] Implanted:Qty : 1 on 11/02/2017 by Ignacio Guevara MD at OR [facility] Right: Internal Jugular CR BARD : PERIPHERAL VASCULAR 07/04/2019 [id number] / / [id number] documented as of this encounter Visit Diagnoses [...] specific identity) Health Care Agent Care Teams Technical Customer Support Specialist Relationship Specialty Start Date End Date Aaron Marx MD [address] [place] [address] PCP - General Internal Medicine 11/09/23 documented as of this encounter
--- OUTSIDE RECORDS SUMMARY | 2023-11-29 19:37 | External Medical Summary | Summary of Care ---
Author Name Unknown Organization [facility] Address [address] [facility] [address] Phone [phone] Care Team Providers Care Graphic Art Designer Name Role Phone Petra Marx MD Primary Care Provider Reason for Visit * Reason Onset Date Comments [facility]: Maintenance 11/25/2023 Encounter Details Date Type Department Care Team (Late st Contact Info) Description 11/25/2023 9:00 AM EST Scheduled Telephone [facility], [facility] [address] [employer] [place] [address] Coordinator, [facility] 132 [facility] [place] [address] Allergies Active Allergy Reactions Criticality Noted Date [...] Refills Start Date End Date Status OneTouch Vershira In Vitro Strip (Glucose Blood)Indications: Type 2 [...] morning. 90 Tablet 0 12/26/2022 Active Creon 37554-50661 UNIT Oral Capsule Delayed Release Particles (Pancrelipase (Rca-Uxpv-Dehz)) TAKE 4 CAPSULES THREE TIMES DAILY 720 [...] by mouth at bedtime. 30 Tablet 5 06/26/2023 Active Ipratropium-Albute rol 0.5-2.5 (3) MG/3ML Inhalation Solution (Duoneb) Inhale 3 mL via nebulizer every 4 hours as needed for Wheezing. 360 mL 3 06/29/2023 Active Montelukast Sodium 10 MG Oral Tablet (Singulair) Take 1 Tablet by mouth at bedtime. 30 Tablet 5 06/29/2023 Active Omeprazole 20 MG Oral Capsule [...] had previously. Follows with endocrinology at [facility] Stage 3a chronic kidney disease 04/16/2023 [...] Status post placement of ureteral stent 04/20/20 20 Last Assessment & Plan: For urological procedure [...] rinse after steroid. Test performed by Lazarus SPIRITUAL COUNSELOR CPFT Moderate persistent asthma w ithout complication 10/11/2019 08/09/2021 Overview: In Check dial performed to assess inhaler technique: 11/25/19 Name of inhalers Albuterol Pass: Yes at 40L/min and Trelegy Ellipta Pass: Yes at 35L/min. Encourage to take deep breaths, use aero chamber, and rinse after steroid. Test performed by Lazarus SPIRITUAL COUNSELOR CPFT Ulcer of left lower extremit y, limited to breakdown of skin 10/11/2019 01/24/2020 Major depressive disorder, s silverio episode, unspecified 10/11/2019 03/28/2020 Overview: More specific code in use. History of wrist fracture 06/30/2019 Overview: Open Nereydas fx Historical. Chronic diastolic heart failure 05/13/2019 06/29/2023 COPD (chronic obstructive pu lmonary disease) with chronic bronchitis 04/26/2019 06/29/2023 Overview: In Check dial performed to assess inhaler technique: 11/25/19 Name of inhalers Albuterol Pass: Yes at 40L/min and Trelegy Ellipta Pass: Yes at 35L/min. Encourage to take deep breaths, use aero chamber, and rinse after steroid. Test performed by Lazarus SPIRITUAL COUNSELOR CPFT Groupl B, by GOLD 2017 classification [...] rinse after steroid. Test performed by Lazarus SPIRITUAL COUNSELOR CPFT Acute. Anemia 10/19/2017 08/09/2021 Malabsorption 10/19/2017 [...] mRNA, LNP-s, No Pre serve, 2-Dose Series (Holidog) 07/12/2021,05/16/2021,11/18/2020,11/04 COVID-19, LNP-s, No Preserve , Josue-sucrose, Ages 12+ (Holidog) 05/16/2022 Covid-19, Mrna, Lnp-s, Pf, B ivalent, 30 Mcg, IM, 12 yrs and above (Holidog) 08/06/2022 Pneumococcal Conjugate Vacc, 13 Valent (Prevnar) [...] encounter Miscellaneous Notes * Telephone Encounter - Otilia Ortega RN - 11/25/2023 8:50 AM EST Images from the original note were not included. [facility] Telephonic Nurse Follow-Up Call [facility] Subprogram: Focused Care Management (3-9 months) Follow Up Call Type: Routine follow up call / Status Check Acute issue requiring follow-up call: Other: diarrhea Objective: 11/20/2023 12:00 PM 11/19/2023 3:16 PM 11/09/2023 1:36 PM 10/20/2023 12:11 PM 10/06/2023 10:41 AM VITALS ACROSS ENCOUNTERS BP 90/60 100/60 118/60 133/60 104/58 Pulse 80 62 58 64 68 Weight 77.1 kg 78 kg BMI 32.12 BMI 32.1 kg/m2 32.5 kg/m2 Lab Results Component Value Date BLOOD, URINE - [facility] Negative 11/09/2023 PROTEIN, URINE - [facility] Negative 11/09/2023 ESTERASE, URINE - [facility] Small (A) 11/09/2023 WBC AUTO - [facility] 6.73 09/08/2023 WBC, URINE - [facility] 10-19 (A) 11/09/2023 NITRITE, URINE - [facility] Negative 11/09/2023 QUANT URINE CULTURE GROWTH No significant growth 11/09/2023 Lab Results Component Value Date WBC AUTO - [facility] 6.73 09/08/2023 HGB - [facility] 13.1 09/08/2023 PLATELET AUTO - [facility] 210 09/08/2023 Lab Results Component Value Date SODIUM - [facility] 137 11/09/2023 POTASSIUM - [facility] 3.6 11/09/2023 MAGNESIUM - [facility] 2.8 (H) 11/09/2023 CO2 - [facility] 35 (H) 11/09/2023 CREATININE - [facility] 1.1 (H) 11/09/2023 ESTIMATED GLOMERULAR FILTRATION RATE - [facility] 56 (L) 11/09/2023 No results found for: "PRO BNP", "LEFT VENTRICULAR EJECTION FRACTION" Remote Patient Monitoring: [facility] Scale: Oxygen Needs: NO supplemental oxygen needs identified DME Needs: NO DME needs identified Medications: New medication(s) added: Stopped amoxicillin yesterday due to diarrhea Subjective: Condition Status: No change in symptoms Current Concerns: Spoke with Liz, reports diarrhea still persists, encouraged to avoid foods that are dairy, greasy, spicy or fried foods, need to follow a BRAT diet, bananas, rice, applesauce and toast, drink clear liquids and take an OTC probiotic. Encouraged to contine to take Amoxicillian for dental infection. Disposition: Routed to [facility] and/or [facility] Care Team for further advice Future Visits Scheduled: Future Appointments-next 60 days Date/Time Provider Specialty Dept Phone 11/25/2023 9:00 AM CoordinatorDirk [facility] [phone] 11/25/2023 11:30 AM NurseMarcelo 4 Hematology Oncology [phone] 12/08/2023 12:40 PM (Arrive by 12:25 PM) Rani Hernandez PA-C Neurology [phone] 12/09/2023 7:00 PM 02/01/2024 12:30 PM (Arrive by 12:15 PM) [facility] Radiology [phone] 02/22/2024 1:40 PM (Arrive by 1:25 PM) Petra Marx MD Family Medicine [phone] 05/06/2024 3:20 PM (Arrive by 3:05 PM) Stef Maravilla MD Rheumatology [phone] 09/14/2024 11:00 AM Parvez Nurse Annual Wellness Ancillary [phone] Otilia Ortega, RN documented in this encounter Plan of Treatment Upcoming Encounters Date Type Department Care Team (Latest Contact Info) Description 11/25/2023 11:30 AM EST Immunization/Injec tion Hematology/Oncology Treatment, [place] [address] [place] [phone] Nurse, Med 200 [facility] [place] [address] 12/08/2023 12:40 PM EST Office Visit Neurology [facility] 200 [facility] [place] [address] Rani Hernandez PA-C 200 [facility] [place] [address] 12/21/2023 2:10 PM EDT Hospital Encounter OR [facility], Operating Room [facility] [address] [place] [phone] Yared Bennett, [address] [place] [phone] 12/21/2023 2:10 PM EDT - 12/21/2023 3:00 PM EDT Surgery OR [facility], Operating Room [facility] [address] [place] [phone] Yared Bennett, [address] [place] [phone] DESTROY LUMBAR SACRAL NERVE IMAGING SINGLE 02/01/2024 12:30 PM EDT Imaging Radiology [address] [place] [address] 02/22/2024 1:40 PM EDT Office Visit Family [facility] [address] [place] [address] Petra Marx MD [address] [place] [address] 05/06/2024 3:20 PM EDT Office Visit Rheumatology [address] [place] [phone] Stef Maravilla MD [address] [place] [address] [place] [address] 09/14/2024 11:00 AM EST Nurse Only Ancillary [address] [place] [address] [place], Nurse [address] [place] [address] Scheduled Procedures Name Priority Associated Diagnoses Date/Ti [...] 05/01/2024 05/01/2023, 03/05 CKD PHOS USE SMARTSET 53955 05/01/202404/05, 03/21/2022, 03/20/2021, Additional history exists GFR 05/09/2024 11/09/2023, 10/07, 11/03/2023, Additional history exists Depression Screening 09/08/2024 09/08/2023, 01/28/20 18 TSH 10/31/2024 10/31/2023, 12/02/2023, 07/30/2022, Additional history exists CKD HGB USE SMARTSET 82107 11/02/202411/02, 09/08/2023, 09/08/2023, Additional history exists O2 [...] D LEVEL ONCE IN A LIFETIME-USE SMARTSET# 62989 Completed 05/01/2023, 12/28/2014, 04/26/2012, Additional history exists [...] this encounter Medical Devices Implanted Type Area Lithoduplicator Operator Device Identifier Shelf Expiration Date Model / Serial / Lot Port Power Mri W/8fr Cath - [id number] Implanted:Qty : 1 on 11/02/2017 by Ignacio Guevara MD at [facility] Right: Internal Jugular CR BARD : PERIPHERAL VASCULAR 07/04/2019 [id number] / / [id number] documented as of this encounter Advance Directives Healthcare Agents on File Name Relationship Healthcare Agent Relationship Communication Ivonne Martinez Other - (no specific identity) Health Care Agent Care Teams Graphic Art Designer Relationship Specialty Start Date End Date Petra Marx MD [address] [place] [address] PCP - General Internal Medicine 11/09/23 documented as of this encounter
--- OUTSIDE RECORDS SUMMARY | 2023-11-29 19:37 | External Medical Summary | Summary of Care ---
Author Name Unknown Organization [facility] Address [address] [place] [address] Phone [phone] Care Team Providers Care Wool Sampler Name Role Phone Aaron Marx MD Primary Care Provider Reason for Visit * Reason Onset Date Comments [facility]: Maintenance 11/19/2023 Encounter Details Date Type Department Care Team (Late st Contact Info) Description 11/19/2023 Telephone [facility], [facility] [address] [place] [address] [facility], Nurse [facility] [address] [place] [address] [facility]: Maintenance Allergies Active Allergy [...] morning. 90 Tablet 0 3 Active Creon 50169-96706 UNIT Oral Capsule Delayed Release Particles (Pancrelipase (Hlq-Gaif-Kgqv)) TAKE 4 CAPSULES THREE TIMES DAILY 720 [...] had previously. Follows with endocrinology at [facility] Stage 3a chronic kidney disease 04/16/2023 COPD, [...] rinse after steroid. Test performed by Lazarus FLOW SPECIALIST CPFT Moderate persistent asthma w ithout complication 10/11/2019 08/09/2021 Overview: In Check dial performed to assess inhaler technique: 11/25/19 Name of inhalers Albuterol Pass: Yes at 40L/min and Trelegy Ellipta Pass: Yes at 35L/min. Encourage to take deep breaths, use aero chamber, and rinse after steroid. Test performed by Lazarus FLOW SPECIALIST CPFT Ulcer of left lower extremit y, [...] rinse after steroid. Test performed by Lazarus FLOW SPECIALIST CPFT Groupl B, by GOLD 2017 classification [...] rinse after steroid. Test performed by Lazarus FLOW SPECIALIST CPFT Acute. Anemia 10/19/2017 08/09/2021 Malabsorption 10/19/2017 [...] mRNA, LNP-s, No Pre serve, 2-Dose Series (VinPerfect) 07/12/2021,05/16/2021,11/18/2020,11/04 COVID-19, LNP-s, No Preserve , Josue-sucrose, Ages 12+ (VinPerfect) 05/16/2022 Covid-19, Mrna, Lnp-s, Pf, B ivalent, 30 Mcg, IM, 12 yrs and above (VinPerfect) 08/06/2022 Influenza, Whole Virus 08/19/2000 Pneumococcal Conjugate [...] Encounter - Katie Giron MED ASSIST - 11/26/2023 1:54 PM EST Patient informed. * Telephone Encounter - Noel Alexis RN [...] her BiPap that will help -- call [facility] Neurology for further advice as this [...] - 11/20/2023 8:03 AM EST Patient sees [facility] Neurology. Was supposed to have visit this week. Please see if she attended and if we can get visit note. * Telephone Encounter - Linda Snowden RN - 11/19/2023 3:58 PM EST TT message from TIMMY Calvin to put patient on for follow up phone calls tomorrow and weekend s/p HV for [facility] admission. Patient was admitted to [facility] 10/30-11/05 with headaches, UTI, hypokalemia. TIMMY had [...] bleeding s/p tooth extraction. Advised to call [facility] back with any new or worsening symptoms. Follow up phone call scheduled. TIMMY making return HV tomorrow afternoon Follow up phone call scheduled Routing to care team Linda Snowden RN, BSN [facility] financial analysis manager Navigator documented in this encounter Plan of Treatment Upcoming Encounters Date Type Department Care Team (Late st Contact Info) Description 11/27/2023 1:00 PM EST Home Visit Care Coordination and Integration [address] [facility] [place] [address] [address] [place] [address] 12/02/2023 11:45 AM EST Immunization/Inje ction Hematology/Oncology Treatment, [place] [address] [place] [phone] Nurse, Med 200 [facility] [place] [address] 12/08/2023 12:40 PM EST Office Visit Neurology [facility] 200 [facility] [place] [address] Rani Hernandez PA-C 200 [facility] [place] [address] 12/21/2023 2:10 PM EDT Hospital Encounter OR [facility], Operating Room [facility] [address] [place] [phone] Yared Bennett DO [address] [place] [phone] 12/21/2023 2:10 PM EDT - 12/21/2023 3:00 PM EDT Surgery OR [facility], Operating Room [facility] [address] [place] [phone] Yared Bennett DO [address] [place] [phone] DESTROY LUMBAR SACRAL NERVE IMAGING SINGLE 02/01/2024 12:30 PM EDT Imaging Radiology [address] [place] [address] 02/22/2024 1:40 PM EDT Office Visit [facility] [address] [place] [address] Aaron Marx MD [address] [place] [address] 05/06/2024 3:20 PM EDT Office Visit Rheumatology [address] [place] [phone] Stef Maravilla MD [address] [place] [address] [place] [address] 09/14/2024 11:00 AM EST Nurse Only Ancillary [address] [place] [address] [place], Nurse [address] [place] [address] Scheduled Procedures Name Priority Associated Diagnoses Date/Ti [...] 05/01/2024 05/01/2023, 03/05 CKD PHOS USE SMARTSET 04946 05/01/202404/05, 03/21/2022, 03/20/2021, Additional history exists GFR 05/09/2024 11/09/2023, 10/07, 11/03/2023, Additional history exists Depression Screening 09/08/2024 09/08/2023, 01/28/20 18 TSH 10/31/2024 10/31/2023, 02/2023, 07/30/2022, Additional history exists CKD HGB USE SMARTSET 95660 11/02/202411/02, 09/08/2023, 09/08/2023, Additional history exists O2 [...] D LEVEL ONCE IN A LIFETIME-USE SMARTSET# 28896 Completed 05/01/2023, 12/28/2014, 04/26/2012, Additional history exists [...] this encounter Medical Devices Implanted Type Area Content Management Specialist Device Identifier Shelf Expiration Date Model / Serial / Lot Port Power Mri W/8fr Cath - [id number] Implanted:Qty : 1 on 11/02/2017 by Ignacio Guevara MD at OR [facility] Right: Internal Jugular CR BARD : PERIPHERAL VASCULAR 07/04/2019 [id number] / / [id number] documented as of this encounter Visit Diagnoses [...] specific identity) Health Care Agent Care Teams Wool Sampler Relationship Specialty Start Date End Date Aaron Marx MD 132 [facility] [place] [address] PCP - General Internal Medicine 11/09/23 documented as of this encounter
--- OUTSIDE RECORDS SUMMARY | 2023-11-29 19:37 | External Medical Summary | Summary of Care ---
Author Name Unknown Organization [facility] Address [address] [address] Phone [phone] Care Team Providers Care Construction Assistant Name Role Phone Petra Marx MD Primary Care Provider Reason for Visit * Reason Onset Date Comments [facility]: Maintenance 11/24/2023 Encounter Details Date Type Department Care Team (Late st Contact Info) Description 11/24/2023 10:00 AM EST Scheduled Telephone [facility], [facility] 132 [facility] [place] [address] Coordinator, [facility] 132 [facility] [place] [address] Allergies Active Allergy Reactions Criticality Noted Date [...] morning. 90 Tablet 0 12/26/2022 Active Creon 23447-91685 UNIT Oral Capsule Delayed Release Particles (Pancrelipase (Pbb-Vtcm-Jsci)) TAKE 4 CAPSULES THREE TIMES DAILY 720 [...] Larisa-patient had previously. Follows with endocrinology at [facility] Stage 3a chronic kidney disease 04/16/2023 [...] rinse after steroid. Test performed by Lazarus COACH OPERATOR CPFT Moderate persistent asthma w ithout complication 10/11/2019 08/09/2021 Overview: In Check dial performed to assess inhaler technique: 11/25/19 Name of inhalers Albuterol Pass: Yes at 40L/min and Trelegy Ellipta Pass: Yes at 35L/min. Encourage to take deep breaths, use aero chamber, and rinse after steroid. Test performed by Lazarus COACH OPERATOR CPFT Ulcer of left lower extremit y, [...] rinse after steroid. Test performed by Lazarus COACH OPERATOR CPFT Groupl B, by GOLD 2017 classification [...] rinse after steroid. Test performed by Lazarus COACH OPERATOR CPFT Acute. Anemia 10/19/2017 08/09/2021 Malabsorption 10/19/2017 [...] mRNA, LNP-s, No Pre serve, 2-Dose Series ([employer]) 07/12/2021,05/16/2021,11/18/2020,11/04 COVID-19, LNP-s, No Preserve , Josue-sucrose, Ages 12+ ([employer]) 05/16/2022 Covid-19, Mrna, Lnp-s, Pf, B ivalent, 30 Mcg, IM, 12 yrs and above ([employer] Management) 08/06/2022 Influenza, Whole Virus 08/19/2000 Pneumococcal Conjugate [...] Encounter - Otilia Ortega RN - 11/25/2023 8:35 AM EST Phone call to patient to make her aware of [facility] recommendations, states she is still having diarrhea encouraged to follow a BRAT, [place] diet and have her aide pickling machine operator an OTC probiotic, verbalized understanding. SWEETIE Kaur [facility] * Telephone Encounter - Otilia Ortega RN - 11/24/2023 9:28 AM EST [facility] Telephonic Nurse Follow-Up Call [facility] Subprogram: Focused Care Management (3-9 months) Follow Up Call Type: Routine follow up call / Status Check Acute issue requiring follow-up call: Other: how dental visit went on 11/23. any infection concerns? Objective: 11/20/2023 12:00 PM 11/19/2023 3:16 PM [...] "LEFT VENTRICULAR EJECTION FRACTION" Remote Patient Monitoring: [facility] Scale: did not weigh self this morning Oxygen Needs: NO supplemental oxygen needs identified DME Needs: NO DME needs identified Medications: No medication or dose adjustments made during acute episode Stopped amoxicillin yesterday due to diarrhea Subjective: Condition Status: Improvement in symptoms but not at baseline Current Concerns: Spoke with Liz, was seen by dentist yesterday, unsure what he did but her tooth does feel better, denies any pain to area, stopped abx yesterday as she was having diarrhea, will take imodium and follow BRAT diet, encouraged to stay hydrated. Zariae present with Liz was able to get shower this morning and ate breakfast. Disposition: Routed to [facility] and/or [facility] Care Team for further advice and Follow up call scheduled for tomorrow with JOANNA RamirezEngraver Jewelry Future Visits Scheduled: Future Appointments-next 60 days Date/Time Provider Specialty Dept Phone 11/24/2023 10:00 AM Coordinator, Dirk Ramirez [facility] [phone] 11/25/2023 11:30 AM Nurse, Med 4 Hematology Oncology [phone] 12/08/2023 12:40 PM (Arrive by 12:25 PM) Rani Hernandez PA-C Neurology [phone] 12/09/2023 7:00 PM 02/01/2024 12:30 PM (Arrive by 12:15 PM) M[facility]MOGRAPHY [place] Radiology [phone] 02/22/2024 1:40 PM (Arrive by 1:25 PM) Petra Marx MD Family Medicine [phone] 05/06/2024 3:20 PM (Arrive by 3:05 PM) Stef Maravilla MD Rheumatology [phone] 09/14/2024 11:00 AM Nurse Parvez [facility] Ancillary [phone] Otilia Ortega, RN documented in this encounter Plan of Treatment Upcoming Encounters Date Type Department Care Team (Latest Contact Info) Description 11/25/2023 9:00 AM EST Scheduled Telephone [facility], [facility] 132 [place] [address] Coordinator, Dirk Ramirez [address] [place] [address] 11/25/2023 11:30 AM EST Immunization/Injec tion Hematology/Oncology Treatment, [place] [address] [place] [address] Nurse, Med 4 [facility] [address] 12/08/2023 12:40 PM EST Office Visit Neurology Nadira Stover [place] [address] [place] [address] Rani Hernandez PA-C [address] [place] [address] 12/21/2023 2:10 PM EDT Hospital Encounter [facility], Operating Room [facility] [address] [place] [phone] Yared Bennett, [address] [place] [phone] 12/21/2023 2:10 PM EDT - 12/21/2023 3:00 PM EDT Surgery OR [facility], Operating Room [facility] [address] [place] [phone] Yared Bennett, [address] [place] [address] DESTROY LUMBAR SACRAL NERVE IMAGING SINGLE 02/01/2024 12:30 PM EDT Imaging Radiology [address] [place] [address] 02/22/2024 1:40 PM EDT Office Visit Family Practice [facility] [address] [place] [address] Petra Marx MD [address] [place] [address] 05/06/2024 3:20 PM EDT Office Visit Rheumatology [address] [place] [phone] Stef Maravilla MD [address] [facility] [place] [address] 09/14/2024 11:00 AM EST Nurse Only Ancillary Juarez Deluca [address] [place] [address] Parvez, Nurse [address] [place] [address] Scheduled Procedures Name Priority Associated Diagnoses Date/Ti [...] 05/01/2024 05/01/2023, 03/05 CKD PHOS USE SMARTSET 86044 05/01/202404/05, 03/21/2022, 03/20/2021, Additional history exists GFR 05/09/2024 11/09/2023, 10/07, 11/03/2023, Additional history exists Depression Screening 09/08/2024 09/08/2023, 01/28/20 18 TSH 10/31/2024 10/31/2023, 12/02/2023, 07/30/2022, Additional history exists CKD HGB USE SMARTSET 40994 11/02/202411/02, 09/08/2023, 09/08/2023, Additional history exists O2 [...] D LEVEL ONCE IN A LIFETIME-USE SMARTSET# 30828 Completed 05/01/2023, 12/28/2014, 04/26/2012, Additional history exists [...] this encounter Medical Devices Implanted Type Area Pst Supervisor Device Identifier Shelf Expiration Date Model / Serial / Lot Port Power Mri W/8fr Cath - [id number] Implanted:Qty : 1 on 11/02/2017 by Ignacio Guevara MD at OR [facility] Right: Internal Jugular CR BARD : PERIPHERAL VASCULAR 07/04/2019 [id number] / / [id number] documented as of this encounter Advance Directives Healthcare Agents on File Name Relationship Healthcare Agent Relationship Communication Ivonne Martinez Other - (no specific identity) Health Care Agent Care Teams Construction Assistant Relationship Specialty Start Date End Date Petra Marx MD [address] [place] [address] PCP - General Internal Medicine 11/09/23 documented as of this encounter
--- OUTSIDE RECORDS SUMMARY | 2023-11-29 19:37 | External Medical Summary | Summary of Care ---
Author Name Unknown Organization [facility] Address [address] [facility] [address] Phone [phone] Care Team Providers Care Ornamental Metal Fabricator Apprentice Name Role Phone Petra Marx MD Primary Care Provider Reason for Visit * Reason Onset Date Comments [facility]: Maintenance 11/24/2023 Encounter Details Date Type Department Care Team (Late st Contact Info) Description 11/24/2023 10:00 AM EST Scheduled Telephone [facility], [facility] 132 [facility] [place] [address] Coordinator, [facility] 132 [facility] [place] [address] Allergies Active Allergy Reactions Criticality Noted Date Comments Aminoglycosides Nebcin Atropine ? allergy to Atropine Cephalosporins Keflin Dipyridamole Persantine Meperidine And Related ? allergy to Demerol Metolazone 10/03/2021 Severe hypokalemia Parasympathomimetics Urecholine Piperacillin Sod-Tazobactam So Rash 02/03 Prochlorperazine Salicylates ASA Sulfa Antibiotics Bactrim Venlafaxine 02/03/2013 Nervous reaction documented as of this encounter (statuses as of 11/24/2023) Medications Medication Sig Dispensed Refills Start Date [...] morning. 90 Tablet 0 12/26/2022 Active Creon 95735-08499 UNIT Oral Capsule Delayed Release Particles (Pancrelipase (Fnb-Dkqh-Telp)) TAKE 4 CAPSULES THREE TIMES DAILY 720 [...] as of this encounter (statuses as of 11/24/2023) Active Problems Problem Noted Date Diagnosed Date Chronic diastolic congestive heart failure 11/09 Secondary hyperparathyroidism of renal origin Major depressive disorder, recurrent, in remissi on 11/09/2023 Hypoglycemia 06/29/2023 Last Assessment & Plan: Glucose 103 during visit. Reordered freestyle Larisa-patient had previously. Follows with endocrinology at [facility] Stage 3a chronic kidney disease [...] as of this encounter (statuses as of 11/24/2023) Resolved Problems Problem Noted Date Diagnosed Date [...] rinse after steroid. Test performed by Lazarus PUMPER HEAD CPFT Moderate persistent asthma w ithout complication 10/11/2019 08/09/2021 Overview: In Check dial performed to assess inhaler technique: 11/25/19 Name of inhalers Albuterol Pass: Yes at 40L/min and Trelegy Ellipta Pass: Yes at 35L/min. Encourage to take deep breaths, use aero chamber, and rinse after steroid. Test performed by Lazarus PUMPER HEAD CPFT Ulcer of left lower extremit y, [...] rinse after steroid. Test performed by Lazarus PUMPER HEAD CPFT Groupl B, by GOLD 2017 classification [...] rinse after steroid. Test performed by Lazarus PUMPER HEAD CPFT Acute. Anemia 10/19/2017 08/09/2021 Malabsorption 10/19/2017 [...] as of this encounter (statuses as of 11/24/2023) Immunizations Name Administration Dates Next Due COVID-19 mRNA, LNP-s, No Pre serve, 2-Dose Series ([employer]) 07/12/2021,05/16/2021,11/18/2020,11/04 COVID-19, LNP-s, No Preserve , Josue-sucrose, Ages 12+ ([employer]) 05/16/2022 Covid-19, Mrna, Lnp-s, Pf, B ivalent, 30 Mcg, IM, 12 yrs and above ([employer]) 08/06/2022 Pneumococcal Conjugate Vacc, 13 Valent (Prevnar) [...] [facility] Telephonic Nurse Follow-Up Call [facility] Subprogram: Focused Care Management (3-9 months) Follow [...] follow BRAT diet, encouraged to stay hydrated. Aide present with Liz was able to get shower this morning and ate breakfast. Disposition: Routed to [facility] and/or [facility] Care Team for further advice and Follow up call scheduled for tomorrow with JOANNA Clearing House Clerk Future Visits Scheduled: Future Appointments-next 60 days Date/Time Provider Specialty Dept Phone 11/24/2023 10:00 AM Dirk Suarez [facility] [phone] 11/25/2023 11:30 AM Nurse, Med 4 Hematology Oncology [phone] 12/08/2023 12:40 PM (Arrive by 12:25 PM) Rani Hernandez PA-C Neurology [phone] 12/09/2023 7:00 PM 02/01/2024 12:30 PM (Arrive by 12:15 PM) MAMMOGRAPHY [place] Radiology [phone] 02/22/2024 1:40 PM (Arrive by 1:25 PM) Petra Marx MD Family Medicine [phone] 05/06/2024 3:20 PM (Arrive by 3:05 PM) Stef Maravilla MD Rheumatology [phone] 09/14/2024 11:00 AM Nurse Parvez [facility] Anc[facility] [phone] Otilia Ortega RN documented in this encounter Plan of Treatment Upcoming Encounters Date Type Department Care Team (Latest Contact Info) Description 11/25/2023 9:00 AM EST Scheduled Telephone [facility], [facility] 132 [place] [address] Coordinator, [facility] 132 [place] [address] 11/25/2023 11:30 AM EST Immunization/Injec tion Hematology/Oncology Treatment, [place] [address] [place] [phone] Nurse, Med [address] [place] [address] [address] 12/08/2023 12:40 PM EST [facility] 200 [facility] [place] [address] Rani Hernandez PA-C 200 [facility] [place] [address] 12/21/2023 2:10 PM EDT Hospital Encounter [facility], Operating Room [facility] 132 [place] [phone] Yared Bennett, DO [address] [place] [address] 12/21/2023 2:10 PM EDT - 12/21/2023 3:00 PM EDT Surgery [facility], Operating Room [facility] [address] [place] [phone] Yared Bennett, DO [address] [place] [address] DESTROY LUMBAR SACRAL NERVE IMAGING SINGLE 02/01/2024 12:30 PM EDT Imaging Radiology [address] [place] [address] 02/22/2024 1:40 PM EDT Office Visit Family [facility] [address] [place] [address] Petra Marx MD [address] [place] [address] 05/06/2024 3:20 PM EDT Office Visit Rheumatology [address] [place] [phone] Stef Maravilla MD [facility] [place] [address] 09/14/2024 11:00 AM EST Nurse Only Ancillary [address] [place] [address] [place], Nurse Annual [address] [place] [address] Scheduled Procedures Name Priority Associated Diagnoses Date/Ti [...] 05/01/2024 05/01/2023, 03/05 CKD PHOS USE SMARTSET 45446 05/01/202404/05, 03/21/2022, 03/20/2021, Additional history exists GFR 05/09/2024 11/09/2023, 10/07, 11/03/2023, Additional history exists Depression Screening 09/08/2024 09/08/2023, 01/28/20 18 TSH 10/31/2024 10/31/2023, 12/0 02/2023, 07/30/2022, Additional history exists CKD HGB USE SMARTSET 80173 11/02/202411/02, 09/08/2023, 09/08/2023, Additional history exists O2 [...] D LEVEL ONCE IN A LIFETIME-USE SMARTSET# 68217 Completed 05/01/2023, 12/28/2014, 04/26/2012, Additional history exists [...] this encounter Medical Devices Implanted Type Area Sumo Wrestler Device Identifier Shelf Expiration Date Model / Serial / Lot Port Power Mri W/8fr Cath - [id number] Implanted:Qty : 1 on 11/02/2017 by Ignacio Guevara MD at [facility] Right: Internal Jugular CR BARD : PERIPHERAL VASCULAR 07/04/2019 [id number] / / [id number] documented as of this encounter Advance Directives Healthcare Agents on File Name Relationship Healthcare Agent Relationship Communication Ivonnepetra Martinez Other - (no specific identity) Health Care Agent Care Teams Ornamental Metal Fabricator Apprentice Relationship Specialty Start Date End Date Petra Marx MD [address] [place] [address] PCP - General Internal Medicine 11/09/23 documented as of this encounter
--- OUTSIDE RECORDS SUMMARY | 2023-11-29 19:38 | External Medical Summary | Summary of Care ---
Author Name Unknown Organization [facility] Address [address] [place] [facility] [place] [address] Phone [phone] Care Team Providers Care Animal Cytologist Name Role Phone Petra Marx MD Primary Care Provider Reason for Visit * Reason Onset Date Comments [facility]: Maintenance 11/21/2023 Encounter Details Date Type Department Care Team (Late st Contact Info) Description 11/21/2023 11:30 AM EST Scheduled Telephone [facility], [facility] [address] [place] [address] [facility], Nurse [facility] [address] [place] [address] Allergies Active Allergy Reactions Criticality Noted Date Comments Aminoglycosides Nebcin Atropine ? allergy to Atropine Cephalosporins Keflin Dipyridamole Persantine Meperidine And Related ? allergy to Demerol Metolazone 10/03/2021 Severe hypokalemia Parasympathomimetics Urecholine Piperacillin Sod-Tazobactam So Rash 02/03 Prochlorperazine Salicylates ASA Sulfa Antibiotics Bactrim Venlafaxine 02/03/2013 Nervous reaction documented as of this encounter (statuses as of 11/21/2023) Medications Medication Sig Dispensed Refills Start Date [...] morning. 90 Tablet 0 12/26/2022 Active Creon [id number] UNIT Oral Capsule Delayed Release Particles (Pancrelipase (Sim-Cogl-Xnzp)) TAKE 4 CAPSULES THREE TIMES DAILY 720 [...] as of this encounter (statuses as of 11/21/2023) Active Problems Problem Noted Date Diagnosed Date Chronic diastolic congestive heart failure 11/09 Secondary hyperparathyroidism of renal origin Major depressive disorder, recurrent, in remissi on 11/09/2023 Hypoglycemia 06/29/2023 Last Assessment & Plan: Glucose 103 during visit. Reordered freestyle Larisa-patient had previously. Follows with endocrinology at [facility] Stage 3a chronic kidney disease 04/16/2023 COPD, [...] as of this encounter (statuses as of 11/21/2023) Resolved Problems Problem Noted Date Diagnosed Date [...] rinse after steroid. Test performed by Lazarus CUFF PRESSER CPFT Moderate persistent asthma w ithout complication 10/11/2019 08/09/2021 Overview: In Check dial performed to assess inhaler technique: 11/25/19 Name of inhalers Albuterol Pass: Yes at 40L/min and Trelegy Ellipta Pass: Yes at 35L/min. Encourage to take deep breaths, use aero chamber, and rinse after steroid. Test performed by Lazarus CUFF PRESSER CPFT Ulcer of left lower extremit y, [...] rinse after steroid. Test performed by Lazarus CUFF PRESSER CPFT Groupl B, by GOLD 2017 classification [...] rinse after steroid. Test performed by Lazarus CUFF PRESSER CPFT Acute. Anemia 10/19/2017 08/09/2021 Malabsorption 10/19/2017 [...] as of this encounter (statuses as of 11/21/2023) Immunizations Name Administration Dates Next Due COVID-19 mRNA, LNP-s, No Pre serve, 2-Dose Series ([employer]) 07/12/2021,05/16/2021,11/18/2020,11/04 COVID-19, LNP-s, No Preserve , Josue-sucrose, Ages 12+ ([employer]) 05/16/2022 Covid-19, Mrna, Lnp-s, Pf, B ivalent, 30 Mcg, IM, 12 yrs and above ([employer]) 08/06/2022 Pneumococcal Conjugate Vacc, 13 Valent (Prevnar) [...] encounter Miscellaneous Notes * Telephone Encounter - Noemi Rice RN - 11/21/2023 12:26 PM EST Communication Note Name: Liz Braswell Situation: follow up call Background: had tooth extraction, increased fatigue, headache reported with [facility] visit 11/19. Pt was seen for follow up RN 11/20. No acute findings. Assessment: Call to patient. No answer. Left VM requesting return call. Recommendation/ Plan: Has dental follow up 11/23 Placed on for follow up call 11/24 documented in this encounter Plan of Treatment Upcoming Encounters Date Type Department Care Team (Latest Contact Info) Description 11/24/2023 10:00 AM EST Scheduled Telephone [facility] [place], [address] [place] [address] Coordinator, [facility] [address] [place] [address] 11/25/2023 11:30 AM EST Immunization/Injec tion Hematology/Oncology Treatment, [place] [address] [place] [address] Nurse, [facility] 200 [facility] [place] [address] 12/08/2023 12:40 PM EST Office Visit Neurology [facility] [address] [place] [address] Rani Hernandez PA-C 200 [facility] [place] [address] 12/21/2023 2:10 PM EDT Hospital Encounter [facility], Operating Room [facility] [address] [place] [phone] Yared Bennett, [address] [place] [address] 12/21/2023 2:10 PM EDT - 12/21/2023 3:00 PM EDT Surgery OR [facility], Operating Room [facility] [address] [place] [phone] Yared Bennett DO [address] [place] [address] DESTROY LUMBAR SACRAL NERVE IMAGING SINGLE 02/01/2024 12:30 PM EDT Imaging Radiology [address] [place] [address] 02/22/2024 1:40 PM EDT Office Visit Family Practice [facility] [address] [place] [address] Petra Marx MD [address] [place] [address] 05/06/2024 3:20 PM EDT Office Visit Rheumatology [address] [place] [phone] Stef Maravilla MD [address] [place] [address] 09/14/2024 11:00 AM EST Nurse Only Ancillary [address] [place] [address] [place], Nurse Annual [address] [place] [address] Scheduled Procedures Name Priority Associated Diagnoses Date/Ti me DESTROY LUMBAR SACRAL NERVE IMAGING SINGLE Spondylosis of lumbar region without myelopathy or radiculopathy 12/21/2023 2:10 PM EDT DESTROY LUMBAR SACRAL NERVE IMAGING ADD'L Spondylosis of lumbar region without myelopathy or radiculopathy 12/21/2023 2:10 PM EDT Health Maintenance Due Date Last Done Comments Cologuard 1997 Sigmoidoscopy 1997 Fecal Occult Blood Test 08/09/2011 08/09/20, 11/14/2009, 12/16/2007, Additional history exists *BISPHONATE OR OTHER ACCEPTABLE MEDICATION NEEDED FOR OSTEOPOROSIS (REFER TO SMARTSET #1146) 01/15/2023 Mammogram 01/30/2024 01/29/2023, 01/04, 11/25/2021, Additional history exists Albumin/Creatinine Ratio 05/01/2024 05/01/2023, 03/05 CKD PHOS USE SMARTSET 38563 05/01/202404/05, 03/21/2022, 03/20/2021, Additional history exists GFR 05/09/2024 11/09/2023, 02/2023, 06/09/2023, Additional history exists CKD HGB USE SMARTSET 24387 09/08/202409/08, 09/08/2023, 06/09/2023, Additional history exists Depression Screening 09/08/2024 09/08/2023, 01/28/20 18 TSH 09/08/2024 09/08/2023, 07/06, 05/28/2022, Additional history exists O2 ASSESSMENT COMPLETED IN [...] D LEVEL ONCE IN A LIFETIME-USE SMARTSET# 47193 Completed 05/01/2023, 12/28/2014, 04/26/2012, Additional history exists [...] this encounter Medical Devices Implanted Type Area Director Of Clinical Applications Device Identifier Shelf Expiration Date Model / Serial / Lot Port Power Mri W/8fr Cath - [id number] Implanted:Qty : 1 on 11/02/2017 by Ignacio Guevara MD at OR [facility] Right: Internal Jugular CR BARD : PERIPHERAL VASCULAR 07/04/2019 [id number] / / [id number] documented as of this encounter Advance Directives Healthcare Agents on File Name Relationship Healthcare Agent Relationship Communication Ivonne Michelle Other - (no specific identity) Health Care Agent Care Teams Animal Cytologist Relationship Specialty Start Date End Date Petra Marx MD [address] [place] [address] PCP - General Internal Medicine 11/09/23 documented as of this encounter
--- OUTSIDE RECORDS SUMMARY | 2023-11-29 19:38 | External Medical Summary | Summary of Care ---
Author Name Unknown Organization [facility] Address [address] [place] [address] Phone [phone] Care Team Providers Care Actuarial Director Name Role Phone Petra Marx MD Primary Care Provider Encounter Details Date Type Department Care Team (Late st Contact Info) Description 11/23/2023 Orders Only Family Practice [facility] [address] [place] [address] Petra Marx MD [address] [place] [address] Allergies Active Allergy Reactions Criticality Noted Date Comments Aminoglycosides Nebcin Atropine ? allergy to Atropine Cephalosporins Keflin Dipyridamole Persantine Meperidine And Related ? allergy to Demerol Metolazone 10/03/2021 Severe hypokalemia Parasympathomimetics Urecholine Piperacillin Sod-Tazobactam So Rash 02/03 Prochlorperazine Salicylates ASA Sulfa Antibiotics Bactrim Venlafaxine 02/03/2013 Nervous reaction documented as of this encounter (statuses as of 11/23/2023) Medications Medication Sig Dispensed Refills Start Date [...] morning. 90 Tablet 0 12/26/2022 Active Creon [id number] UNIT Oral Capsule Delayed Release Particles (Pancrelipase (Wup-Gelo-Mewb)) TAKE 4 CAPSULES THREE TIMES DAILY 720 [...] as of this encounter (statuses as of 11/23/2023) Active Problems Problem Noted Date Diagnosed Date Chronic diastolic congestive heart failure 11/09 Secondary hyperparathyroidism of renal origin Major depressive disorder, recurrent, in remissi on 11/09/2023 Hypoglycemia 06/29/2023 Last Assessment & Plan: Glucose 103 during visit. Reordered freestyle Larisa-patient had previously. Follows with endocrinology at [facility] Stage 3a chronic kidney disease 04/16/2023 COPD, [...] as of this encounter (statuses as of 11/23/2023) Resolved Problems Problem Noted Date Diagnosed Date [...] rinse after steroid. Test performed by Lazarus ORDER MAKE UP CLERK CPFT Moderate persistent asthma w ithout complication 10/11/2019 08/09/2021 Overview: In Check dial performed to assess inhaler technique: 11/25/19 Name of inhalers Albuterol Pass: Yes at 40L/min and Trelegy Ellipta Pass: Yes at 35L/min. Encourage to take deep breaths, use aero chamber, and rinse after steroid. Test performed by Lazarus ORDER MAKE UP CLERK CPFT Ulcer of left lower extremit y, [...] rinse after steroid. Test performed by Lazarus ORDER MAKE UP CLERK CPFT Groupl B, by GOLD 2017 classification [...] rinse after steroid. Test performed by Lazarus ORDER MAKE UP CLERK CPFT Acute. Anemia 10/19/2017 08/09/2021 Malabsorption 10/19/2017 [...] as of this encounter (statuses as of 11/23/2023) Immunizations Name Administration Dates Next Due COVID-19 mRNA, LNP-s, No Pre serve, 2-Dose Series ([employer]) 07/12/2021,05/16/2021,11/18/2020,11/04 COVID-19, LNP-s, No Preserve , Josue-sucrose, Ages 12+ ([employer]) 05/16/2022 Covid-19, Mrna, Lnp-s, Pf, B ivalent, 30 Mcg, IM, 12 yrs and above ([employer]) 08/06/2022 Pneumococcal Conjugate Vacc, 13 Valent (Prevnar) [...] AM EST Scheduled Telephone [facility], [facility] [address] [place] [address] Coordinator, [facility] [address] [place] [address] 11/25/2023 11:30 AM EST Immunization/Injec tion Hematology/Oncology Treatment, [place] [address] [place] [address] Nurse, Med [address] [place] [address] [address] 12/08/2023 12:40 PM EST Office Visit Neurology [facility] [place] [address] [facility] [place] [address] Rani Hernandez PA-C 200 [facility] [place] [address] 12/21/2023 2:10 PM EDT Hospital Encounter [facility], Operating Room [facility] [address] [place] [phone] Yared Bennett, DO [address] [place] [phone] 12/21/2023 2:10 PM EDT - 12/21/2023 3:00 PM EDT Surgery OR [facility], Operating Room [facility] [address] [place] [phone] Yared Bennett, DO [address] [place] [phone] DESTROY LUMBAR SACRAL NERVE IMAGING SINGLE 02/01/2024 12:30 PM EDT Imaging Radiology [address] [place] [address] 02/22/2024 1:40 PM EDT Office Visit Family [facility] [address] [place] [address] Petra Marx MD [address] [place] [address] 05/06/2024 3:20 PM EDT Office Visit Rheumatology [address] [place] [phone] Stef Maravilla MD [address] [place] [address] [place] [address] 09/14/2024 11:00 AM EST Nurse Only Ancillary [address] [place] [address] Parvez, Nurse [address] [place] [address] Scheduled Procedures Name Priority Associated Diagnoses Date/Ti [...] 05/01/2024 05/01/2023, 03/05 CKD PHOS USE SMARTSET 50971 05/01/202404/05, 03/21/2022, 03/20/2021, Additional history exists GFR 05/09/2024 11/09/2023, 10/07, 11/03/2023, Additional history exists Depression Screening 09/08/2024 09/08/2023, 01/28/20 18 TSH 10/31/2024 10/31/2023, 12/02/2023, 07/30/2022, Additional history exists CKD HGB USE SMARTSET 21808 11/02/202411/02, 09/08/2023, 09/08/2023, Additional history exists O2 [...] D LEVEL ONCE IN A LIFETIME-USE SMARTSET# 86436 Completed 05/01/2023, 12/28/2014, 04/26/2012, Additional history exists [...] this encounter Medical Devices Implanted Type Area Counseling Case Manager Device Identifier Shelf Expiration Date Model / Serial / Lot Port Power Mri W/8fr Cath - [id number] Implanted:Qty : 1 on 11/02/2017 by Ignacio Guevara MD at OR [facility] Right: Internal Jugular CR BARD : PERIPHERAL VASCULAR 07/04/2019 [id number] / / [id number] documented as of this encounter Procedures Procedure Name Priority Date/Time Associated Diagnosis Comments CHEMISTRY-OUTSIDE Routine 11/01/2023 documented in this encounter Results * (ABNORMAL) CHEMISTRY-OUTSIDE (11/01/2023) Not all results display below - see scan for full detail OUTSIDE LAB (SEE SCANNED REPORT) Comment:SEE SCAN - BMP CREATININE-OUTSID E LAB 1.09 0.6 - 1.2 MG/DL OUTSIDE LAB (SEE SCANNED REPORT) EGFR-OUTSIDE LAB 51.0 ML/MIN OUT SIDE LAB (SEE SCANNED REPORT) POTASSIUM-OUTSIDE LAB 3.7 3.5 - 5.1 MMOL/L OUTSIDE LAB (SEE SCANNED REPORT) GLUCOSE-OUTSIDE LAB 103(A) 70 - 99 MG/DL OUTSIDE LAB (SEE SCANNED REPORT) HOURS FASTING OUTSID E LAB (SEE SCANNED REPORT) TRIGLYCERIDES-OUT SIDE LAB OUTSIDE LAB (SEE SCANNED REPORT) CHOLESTEROL-OUTSI DE LAB OUTSIDE LAB (SEE SCANNED REPORT) HDL-OUTSIDE LAB OUTS [place] [facility] (SEE SCANNED REPORT) CHOL/HDL RATIO-OUTSIDE LAB OUTSIDE LA B (SEE SCANNED REPORT) LDL (CALCULATED)-OUTS [place] [facility] OUTSIDE LAB (SEE SCANNED REPORT) LDL (DIRECT MEASURE)-OUTSIDE LAB OUTSIDE LAB (SEE SCANNED REPORT) HEMOGLOBIN, F4K-[id number] LAB OUTSIDE LAB (SEE SCANNED REPORT) PHOSPHORUS-OUTSID E LAB OUTSIDE LAB (SEE SCANNED REPORT) PTH-OUTSIDE LAB OUTS [place] [facility] (SEE SCANNED REPORT) MICROALBUMIN RATIO-OUTSIDE LAB OUTSIDE LA B (SEE SCANNED REPORT) PROTEIN, UA-OUTSIDE LAB OUTSIDE LAB (SEE SCANNED REPORT) HEMOGLOBIN-OUTSID E LAB OUTSIDE LAB (SEE SCANNED REPORT) 11/01/2023 Souleymane Rodarte MD LABORATORY OUTSIDE LAB (SEE SCANNED REPORT) documented in this encounter Advance Directives Healthcare Agents on File Name Relationship Healthcare Agent Relationship Communication Ivonne Michelle Other - (no specific identity) Health Care Agent Care Teams Actuarial Director Relationship Specialty Start Date End Date Petra Marx MD [address] [place] [address] [address] PCP - General Internal Medicine 11/09/23 documented as of this encounter
--- OUTSIDE RECORDS SUMMARY | 2023-11-29 19:38 | External Medical Summary | Summary of Care ---
Author Name Unknown Organization [facility] Address [address] [place] [address] Phone [phone] Care Team Providers Care Galley Stripper Name Role Phone Petra Marx MD Primary Care Provider Encounter Details Date Type Department Care Team (Late st Contact Info) Description 11/19/2023 1:30 PM EST Home Visit Care Coordination and Integration [address] [place] [address] Dacia Calvin, Community Health Sap Bi Architect [address] [place] [address] [place] [address] Allergies Active Allergy Reactions Criticality Noted Date Comments Aminoglycosides Nebcin Atropine ? allergy to Atropine Cephalosporins Keflin Dipyridamole Persantine Meperidine And Related ? allergy to Demerol Metolazone 10/03/2021 Severe hypokalemia Parasympathomimetics Urecholine Piperacillin Sod-Tazobactam So Rash 02/03 Prochlorperazine Salicylates ASA Sulfa Antibiotics Bactrim Venlafaxine 02/03/2013 Nervous reaction documented as of this encounter (statuses as of 11/20/2023) Medications Medication Sig Dispensed Refills Start Date [...] morning. 90 Tablet 0 12/26/2022 Active Creon [id number] UNIT Oral Capsule Delayed Release Particles (Pancrelipase (Kdw-Spsc-Ooxj)) TAKE 4 CAPSULES THREE TIMES DAILY 720 [...] twice daily 360 Tablet 3 06/22/2023 Active oxyCODONE-Acetamin ophen 5-325 MG Oral Tablet (Percocet)Indicati ons:Lumbar degenerative disc disease,Ankylosing spondylitis of unspecified sites in spine (HCC) Take 1 Tablet by mouth every 6 hours as needed for Pain, Moderate or Pain, Severe. Ongoing therapy 30 Tablet 0 06/22/2023 Active risperiDONE 2 MG Oral Tablet [...] before bedtime. 90 Tablet 11 11/07/2023 Active documented as of this encounter (statuses as of 11/20/2023) Active Problems Problem Noted Date Diagnosed Date Chronic diastolic congestive heart failure 11/09 Secondary hyperparathyroidism of renal origin Major depressive disorder, recurrent, in remissi on 11/09/2023 Hypoglycemia 06/29/2023 Last Assessment & Plan: Glucose 103 during visit. Reordered freestyle Larisa-patient had previously. Follows with endocrinology at [facility] Stage 3a chronic kidney disease 04/16/2023 COPD, [...] as of this encounter (statuses as of 11/20/2023) Resolved Problems Problem Noted Date Diagnosed Date [...] rinse after steroid. Test performed by Lazarus METAL MOCKUP MAKER CPFT Moderate persistent asthma w ithout complication 10/11/2019 08/09/2021 Overview: In Check dial performed to assess inhaler technique: 11/25/19 Name of inhalers Albuterol Pass: Yes at 40L/min and Trelegy Ellipta Pass: Yes at 35L/min. Encourage to take deep breaths, use aero chamber, and rinse after steroid. Test performed by Lazarus METAL MOCKUP MAKER CPFT Ulcer of left lower extremit y, [...] rinse after steroid. Test performed by Lazarus METAL MOCKUP MAKER CPFT Groupl B, by GOLD 2017 classification [...] rinse after steroid. Test performed by Lazarus METAL MOCKUP MAKER CPFT Acute. Anemia 10/19/2017 08/09/2021 Malabsorption 10/19/2017 [...] as of this encounter (statuses as of 11/20/2023) Immunizations Name Administration Dates Next Due COVID-19 mRNA, LNP-s, No Pre serve, 2-Dose Series ([employer]) 07/12/2021,05/16/2021,11/18/2020,11/04 COVID-19, LNP-s, No Preserve , Josue-sucrose, Ages 12+ ([employer]) 05/16/2022 Covid-19, Mrna, Lnp-s, Pf, B ivalent, 30 Mcg, IM, 12 yrs and above ([employer]) 08/06/2022 Influenza, Whole Virus 08/19/2000 Pneumococcal Conjugate [...] Sign Reading Time Taken Comments Blood Pressure 100/60 11/19/2023 3:16 PM EST Pulse 62 11/19/2023 3:16 PM EST Temperature 36.8 C (98.2 F) 11/19/2023 3:[address] Respiratory Rate 16 11/19/2023 3:16 PM EST Oxygen Saturation 92% 11/19/2023 3:16 PM EST Inhaled Oxygen Concentration - - Weight - - Height - - Body Mass Index - - documented in this encounter Progress Notes * Petra Marx MD - 11/20/2023 5:04 PM EST See other encounter. * Linda Snowden RN - 11/19/2023 5:56 PM EST Spoke with patient, see other tele encounter from today. Follow up phone call scheduled. Linda Snowden RN, BSN [facility] auto research engineer Navigator [phone] * Dacia Calvin, Community Health Sap Bi Architect - 11/19/2023 2:40 PM EST Telemedicine visit: No Community Health Sap Bi Architect (TIMMY) documentation: Patient being seen today for follow up s/p admission to [facility]. Dx: headache, hypokalemia, CHF, UTI Patient reports meds changed while inpatient - started on Topomax and Lamictil. C/o increased fatigue and poor balance. Denies falls. Reports frequent headaches continue, denies improvement since starting new med. "I haven't had any relief of headaches". Was told in hosp not to take tylenol - okay to take Percocet. Patient reprots taking nearly every day. Requesting refill. Reports slight change in vision. Not seeing as well - blurry/cloudy vision intermittent. Reports feeling dizzy/lightheaded at last 2 days/week. Describes as "I feel like I'm going to go backwards. Itscares me". States she goes to see neuro next month. Reports appetite is poor, but taking fluids well. Drinking approx 3 bottles water/day. Sips on sodathrough the day to maintain bsg - 1-2 bottles/day. No N/V/D. No urinary s/s - repots she is asymptomatic aside from flank pain when she has a UTI. Reports feeling cold/chilled. At time of visit, patient sitting in recliner chair fully dressed with fleece jacket and heating pads on legs. States, "I can't get my legs warm". Reports BLE edema, intermittent SOB. Has [facility] scale. Has been forgetting to weigh first thing in theAM - unsure how accurate recent weights are. Believes she has gained. Last known weight: 165# Patient alert and pleasant during visit, however appears pale and fatigued. Noted what appeared to be dried blood around patient's mouth. Patient reports having 4 teeth pulledthis AM by Dr. Simons. Patient states she received Novocain injections prior. States she is not tobrush teeth or remove partial plates for 24 hours. Observed inside of patient's mouth - no active bleeding noted. Amoxicillin 500mg TID x 10 days and buprofen 600mg TID PRN ordered by Dr. Simons. VS as follows: BP 100/60 (BP Site: Right Arm, BP Position: Sitting, BP Cuff Size: Regular) | Pulse 62 | Temp 36.8 C (98.2 F) | Resp 16 | SpO2 92% See surveys/assessments completed at time of visit. documented in this encounter Plan of Treatment Upcoming Encounters Date Type Department Care Team (Latest Contact Info) Description 11/21/2023 11:30 AM EST Scheduled Telephone [facility], [facility] [address] [place] [address] [facility], Nurse [facility] [address] [place] [address] 11/25/2023 11:30 AM EST Immunization/Injec tion Hematology/Oncology Treatment, [place] [address] [place] [address] Nurse, Med 200 [facility] [place] [address] 12/08/2023 12:40 PM EST Office Visit Neurology [facility] [address] [facility] [place] [address] Rani Hernandez PA-C 200 [facility] [place] [address] 12/21/2023 2:10 PM EDT Hospital Encounter [facility], Operating Room [facility] [address] [place] [phone] Yared Bennett DO [address] [place] [phone] 12/21/2023 2:10 PM EDT - 12/21/2023 3:00 PM EDT Surgery [facility], Operating Room [facility] [address] [place] [phone] Yared Bennett DO [address] [place] [phone] DESTROY LUMBAR SACRAL NERVE IMAGING SINGLE 02/01/2024 12:30 PM EDT Imaging Radiology [address] [place] [address] 02/22/2024 1:40 PM EDT Office Visit [facility] [address] [place] [address] Petra Marx MD [address] [place] [address] 05/06/2024 3:20 PM EDT Office Visit Rheumatology [address] [place] [phone] Stef Maravilla MD [facility] [place] [address] 09/14/2024 11:00 AM EST Nurse Only Ancillary [address] [place] [address] [place], Nurse Annual [address] [place] [address] Scheduled Procedures Name Priority Associated Diagnoses Date/Ti [...] 05/01/2024 05/01/2023, 03/05 CKD PHOS USE SMARTSET 52385 05/01/202404/05, 03/21/2022, 03/20/2021, Additional history exists GFR 05/09/2024 11/09/2023, 02/2023, 06/09/2023, Additional history exists CKD HGB USE SMARTSET 53473 09/08/202409/08, 09/08/2023, 06/09/2023, Additional history exists Depression [...] D LEVEL ONCE IN A LIFETIME-USE SMARTSET# [id number] Completed 05/01/2023, 12/28/2014, 04/26/2012, Additional history exists [...] this encounter Medical Devices Implanted Type Area Orthopaedic Surgeon Device Identifier Shelf Expiration Date Model / Serial / Lot Port Power Mri W/8fr Cath - [id number] Implanted:Qty : 1 on 11/02/2017 by Ignacio Guevara MD at OR [facility] Right: Internal Jugular CR BARD : PERIPHERAL VASCULAR 07/04/2019 [id number] / / [id number] documented as of this encounter Advance Directives Healthcare Agents on File Name Relationship Healthcare Agent Relationship Communication Ivonnepetra Martinez Other - (no specific identity) Health Care Agent Care Teams Galley Stripper Relationship Specialty Start Date End Date Petra Marx MD [address] [place] [address] [place] [address] PCP - General Internal Medicine 11/09/23 documented as of this encounter
--- OUTSIDE RECORDS SUMMARY | 2023-11-29 19:38 | External Medical Summary | Summary of Care ---
Author Name Unknown Organization [facility] Address [address] [place] [address] Phone [phone] Care Team Providers Care Fan Mail Clerk Name Role Phone Petra Marx MD Primary Care Provider Encounter Details Date Type Department Care Team (Late st Contact Info) Description 11/23/2023 Orders Only Family Practice [facility] [address] [place] [address] Petra Marx MD [address] [place] [address] Allergies Active Allergy Reactions Criticality Noted Date [...] morning. 90 Tablet 0 12/26/2022 Active Creon [id number] UNIT Oral Capsule Delayed Release Particles (Pancrelipase (Xgy-Zdwz-Fjgg)) TAKE 4 CAPSULES THREE TIMES DAILY 720 [...] Larisa-patient had previously. Follows with endocrinology at [facility] Stage 3a chronic kidney disease 04/16/2023 COPD, [...] my water pills") Chronic Medication Regimen: Beta Edgra Therapy: No beta-edgar secondary to Cardiology decision, [...] rinse after steroid. Test performed by Lazarus A CLASS LINEMAN CPFT Moderate persistent asthma w ithout complication 10/11/2019 08/09/2021 Overview: In Check dial performed to assess inhaler technique: 11/25/19 Name of inhalers Albuterol Pass: Yes at 40L/min and Trelegy Ellipta Pass: Yes at 35L/min. Encourage to take deep breaths, use aero chamber, and rinse after steroid. Test performed by Lazarus A CLASS LINEMAN CPFT Ulcer of left lower extremit y, [...] rinse after steroid. Test performed by Lazarus A CLASS LINEMAN CPFT Groupl B, by GOLD 2017 classification [...] rinse after steroid. Test performed by Lazarus A CLASS LINEMAN CPFT Acute. Anemia 10/19/2017 08/09/2021 Malabsorption 10/19/2017 [...] mRNA, LNP-s, No Pre serve, 2-Dose Series ([employer]) 07/12/2021,05/16/2021,11/18/2020,11/04 COVID-19, LNP-s, No Preserve , Josue-sucrose, Ages 12+ ([employer]) 05/16/2022 Covid-19, Mrna, Lnp-s, Pf, B ivalent, 30 Mcg, IM, 12 yrs and above ([employer]) 08/06/2022 Pneumococcal Conjugate Vacc, 13 Valent (Prevnar) [...] AM EST Scheduled Telephone [facility], [facility] [address] [place] [address] Coordinator, [facility] [address] [place] [address] 11/25/2023 11:30 AM EST Immunization/Injec tion Hematology/Oncology Treatment, [place] [address] [place] [address] Nurse, Med [address] [place] [address] 12/08/2023 12:40 PM EST Office Visit Neurology [facility] [place] 200 [facility] [place] [address] Rani Hernandez PA-C 200 [facility] [place] [address] 12/21/2023 2:10 PM EDT Hospital Encounter OR [facility], Operating Room [facility] [address] [place] [phone] Yared Bennett, DO [address] [place] [phone] 12/21/2023 2:10 PM EDT - 12/21/2023 3:00 PM EDT Surgery OR [facility], Operating Room [facility] [address] [place] [phone] Yared Bennett, DO [address] [place] [phone] DESTROY LUMBAR SACRAL NERVE IMAGING SINGLE 02/01/2024 12:30 PM EDT Imaging Radiology [address] [place] [address] 02/22/2024 1:40 PM EDT Office Visit Family [facility] [address] [place] [address] Petra Marx MD [address] [place] [address] 05/06/2024 3:20 PM EDT Office Visit Rheumatology [address] [place] [phone] Stef Maravilla MD [address] [place] [address] [place] [address] 09/14/2024 11:00 AM EST Nurse Only Ancillary [address] [place] [address] [place], Nurse [address] [place] [address] Scheduled Procedures Name Priority Associated Diagnoses Date/Ti [...] 05/01/2024 05/01/2023, 03/05 CKD PHOS USE SMARTSET 98913 05/01/202404/05, 03/21/2022, 03/20/2021, Additional history exists GFR 05/09/2024 11/09/2023, 10/07, 11/03/2023, Additional history exists Depression Screening 09/08/2024 09/08/2023, 01/28/20 18 TSH 10/31/2024 10/31/2023, 12/02/2023, 07/30/2022, Additional history exists CKD HGB USE SMARTSET 47687 11/02/202411/02, 09/08/2023, 09/08/2023, Additional history exists O2 [...] D LEVEL ONCE IN A LIFETIME-USE SMARTSET# 54003 Completed 05/01/2023, 12/28/2014, 04/26/2012, Additional history exists [...] this encounter Medical Devices Implanted Type Area Sack Maker Device Identifier Shelf Expiration Date Model / Serial / Lot Port Power Mri W/8fr Cath - [id number] Implanted:Qty : 1 on 11/02/2017 by Ignacio Guevara MD at OR [facility] Right: Internal Jugular CR BARD : PERIPHERAL VASCULAR 07/04/2019 [id number] / / [id number] documented as of this encounter Procedures Procedure Name Priority Date/Time Associated Diagnosis Comments CHEMISTRY-OUTSIDE Routine 11/04/2023 documented in this encounter Results * (ABNORMAL) CHEMISTRY-OUTSIDE (11/04/2023) Not all results display below - see scan for full detail OUTSIDE LAB (SEE SCANNED REPORT) Comment:SEE SCAN - BMP, MG CREATININE-OUTSID E LAB 1.35 0.6 - 4.2 MG/DL OUTSIDE LAB (SEE SCANNED REPORT) EGFR-OUTSIDE LAB 39.4 ML/MIN OUT SIDE LAB (SEE SCANNED REPORT) POTASSIUM-OUTSIDE LAB 4.1 3.5 - 5.1 MMOL/L OUTSIDE LAB (SEE SCANNED REPORT) GLUCOSE-OUTSIDE LAB 175(A) 70 - 99 MG/DL OUTSIDE LAB (SEE [...] LAB OUTSIDE LAB (SEE SCANNED REPORT) HEMOGLOBIN, [id number] LAB OUTSIDE LAB (SEE SCANNED REPORT) PHOSPHORUS-OUTSID E LAB OUTSIDE LAB (SEE SCANNED REPORT) PTH-OUTSIDE LAB OUTS [facility] (SEE SCANNED REPORT) MICROALBUMIN RATIO-OUTSIDE LAB OUTSIDE LA B (SEE SCANNED REPORT) PROTEIN, UA-OUTSIDE LAB OUTSIDE LAB (SEE SCANNED REPORT) HEMOGLOBIN-OUTSID E LAB OUTSIDE LAB (SEE SCANNED REPORT) 11/04/2023 Whit Roman MD LABORATORY OUTSIDE LAB (SEE SCANNED REPORT) documented in this encounter Advance Directives Healthcare Agents on File Name Relationship Healthcare Agent Relationship Communication Ivonne Michelle Other - (no specific identity) Health Care Agent Care Teams Fan Mail Clerk Relationship Specialty Start Date End Date Petra Marx MD [address] [place] [address] PCP - General Internal Medicine 11/09/23 documented as of this encounter
--- OUTSIDE RECORDS SUMMARY | 2023-11-29 19:38 | External Medical Summary | Summary of Care ---
Author Name Unknown Organization [facility] Address [address] [place] [address] Phone [phone] Care Team Providers Care Gasoline Engine Assembler Name Role Phone Petra Marx MD Primary Care Provider Encounter Details Date Type Department Care Team (Late st Contact Info) Description 11/23/2023 Orders Only Family Practice [facility] [address] [place] [address] Petra Marx MD [address] [place] [address] Allergies Active Allergy Reactions Criticality Noted Date [...] morning. 90 Tablet 0 12/26/2022 Active Creon 07511-51483 UNIT Oral Capsule Delayed Release Particles (Pancrelipase (Zva-Xvis-Vayj)) TAKE 4 CAPSULES THREE TIMES DAILY 720 [...] Larisa-patient had previously. Follows with endocrinology at [facility] Stage 3a chronic kidney disease 04/16/2023 COPD, [...] rinse after steroid. Test performed by Lazarus EVENTS SPECIALIST CPFT Moderate persistent asthma w ithout complication 10/11/2019 08/09/2021 Overview: In Check dial performed to assess inhaler technique: 11/25/19 Name of inhalers Albuterol Pass: Yes at 40L/min and Trelegy Ellipta Pass: Yes at 35L/min. Encourage to take deep breaths, use aero chamber, and rinse after steroid. Test performed by Lazarus EVENTS SPECIALIST CPFT Ulcer of left lower extremit [...] rinse after steroid. Test performed by Lazarus EVENTS SPECIALIST CPFT Groupl B, by GOLD 2017 [...] rinse after steroid. Test performed by Lazarus EVENTS SPECIALIST CPFT Acute. Anemia 10/19/2017 08/09/2021 Malabsorption [...] mRNA, LNP-s, No Pre serve, 2-Dose Series (SoothEase) 07/12/2021,05/16/2021,11/18/2020,11/04 COVID-19, LNP-s, No Preserve , Josue-sucrose, Ages 12+ (SoothEase) 05/16/2022 Covid-19, Mrna, Lnp-s, Pf, B ivalent, 30 Mcg, IM, 12 yrs and above (SoothEase) 08/06/2022 Pneumococcal Conjugate Vacc, 13 Valent (Prevnar) [...] AM EST Scheduled Telephone [facility], [facility] [address] [place] [address] Coordinator, [facility] [address] [place] [address] 11/25/2023 11:30 AM EST Immunization/Injec tion Hematology/Oncology Treatment, [place] [address] [place] [address] Nurse, Med [address] [place] [address] 12/08/2023 12:40 PM EST Office Visit Neurology [facility] [place] [address] [facility] [place] [address] Rani Hernandez PA-C [address] [facility] [place] [address] 12/21/2023 2:10 PM EDT Hospital Encounter OR [facility], Operating Room [facility] [address] [place] [phone] Yared Bennett, DO [address] [place] [phone] 12/21/2023 2:10 PM EDT - 12/21/2023 3:00 PM EDT Surgery OR [facility], Operating Room [facility] [address] [place] [phone] Yared Bennett, DO [address] [place] [phone] DESTROY LUMBAR SACRAL NERVE IMAGING SINGLE 02/01/2024 12:30 PM EDT Imaging Radiology [address] [place] [address] 02/22/2024 1:40 PM EDT Office Visit Family [facility] [address] [place] [address] Petra Marx MD [address] [place] [address] 05/06/2024 3:20 PM EDT Office Visit Rheumatology [address] [place] [phone] Stef Maravilla MD [address] [place] [address] [place] [address] 09/14/2024 11:00 AM EST Nurse Only Ancillary [address] [place] [address] Parvez, Nurse [address] [place] [address] Scheduled Procedures Name Priority Associated Diagnoses Date/Ti [...] 05/01/2024 05/01/2023, 03/05 CKD PHOS USE SMARTSET 18318 05/01/202404/05, 03/21/2022, 03/20/2021, Additional history exists GFR 05/09/2024 11/09/2023, 10/07, 11/03/2023, Additional history exists Depression Screening 09/08/2024 09/08/2023, 01/28/20 18 TSH 10/31/2024 10/31/2023, 12/02/2023, 07/30/2022, Additional history exists CKD HGB USE SMARTSET 54225 11/02/202411/02, 09/08/2023, 09/08/2023, Additional history exists O2 [...] D LEVEL ONCE IN A LIFETIME-USE SMARTSET# 22576 Completed 05/01/2023, 12/28/2014, 04/26/2012, Additional history exists [...] this encounter Medical Devices Implanted Type Area Senior Scientist Device Identifier Shelf Expiration Date Model / Serial / Lot Port Power Mri W/8fr Cath - [id number] Implanted:Qty : 1 on 11/02/2017 by Ignacio Guevara MD at OR [facility] Right: Internal Jugular CR BARD : PERIPHERAL VASCULAR 07/04/2019 [id number] / / [id number] documented as of this encounter Procedures Procedure Name Priority Date/Time Associated Diagnosis Comments CHEMISTRY-OUTSIDE Routine 11/03/2023 documented in this encounter Results * (ABNORMAL) CHEMISTRY-OUTSIDE (11/03/2023) Not all results display below - see scan for full detail OUTSIDE LAB (SEE SCANNED REPORT) Comment:SEE SCAN - BMP, MG CREATININE-OUTSID E LAB 1.48(A) 0.6 - 1.2 MG/DL OUTSIDE LAB (SEE SCANNED REPORT) EGFR-OUTSIDE LAB 35.3 ML/MIN OUT SIDE LAB (SEE SCANNED REPORT) POTASSIUM-OUTSIDE LAB 3.1(A) 3.5 - 5.1 MMOL/L OUTSIDE LAB (SEE SCANNED REPORT) GLUCOSE-OUTSIDE LAB 110(A) 70 - 99 MG/DL OUTSIDE LAB (SEE [...] LAB OUTSIDE LAB (SEE SCANNED REPORT) HEMOGLOBIN, [id number]-[id number] LAB OUTSIDE LAB (SEE SCANNED REPORT) PHOSPHORUS-OUTSID E LAB OUTSIDE LAB (SEE SCANNED REPORT) PTH-OUTSIDE LAB OUTS [facility] (SEE SCANNED REPORT) MICROALBUMIN RATIO-OUTSIDE LAB OUTSIDE LA B (SEE SCANNED REPORT) PROTEIN, UA-OUTSIDE LAB OUTSIDE LAB (SEE SCANNED REPORT) HEMOGLOBIN-OUTSID E LAB OUTSIDE LAB (SEE SCANNED REPORT) 11/03/2023 Whit Roman MD LABORATORY OUTSIDE LAB (SEE SCANNED REPORT) documented in this encounter Advance Directives Healthcare Agents on File Name Relationship Healthcare Agent Relationship Communication Ivonne Michelle Other - (no specific identity) Health Care Agent Care Teams Gasoline Engine Assembler Relationship Specialty Start Date End Date Petra Marx MD [address] [place] [address] PCP - General Internal Medicine 11/09/23 documented as of this encounter
--- OUTSIDE RECORDS SUMMARY | 2023-11-29 19:38 | External Medical Summary | Summary of Care ---
Author Name Unknown Organization [facility] Address [address] [place] [address] Phone [phone] Care Team Providers Care Faculty Member Name Role Phone Aaron Marx MD Primary Care Provider Reason for Visit * Reason Onset Date Comments [facility]: Maintenance 11/19/2023 Encounter Details Date Type Department Care Team (Late st Contact Info) Description 11/19/2023 Telephone [facility], [facility] [address] [place] [address] [facility], Nurse [facility] [address] [place] [address] [facility]: Maintenance Allergies Active Allergy [...] morning. 90 Tablet 0 3 Active Creon 59281-34257 UNIT Oral Capsule Delayed Release Particles (Pancrelipase (Lnt-Uyqz-Xcpi)) TAKE 4 CAPSULES THREE TIMES DAILY 720 [...] Larisa-patient had previously. Follows with endocrinology at [facility] Stage 3a chronic kidney disease 04/16/2023 [...] rinse after steroid. Test performed by Lazarus MD DO [facility] CPFT Moderate persistent asthma w ithout complication 10/11/2019 08/09/2021 Overview: In Check dial performed to assess inhaler technique: 11/25/19 Name of inhalers Albuterol Pass: Yes at 40L/min and Trelegy Ellipta Pass: Yes at 35L/min. Encourage to take deep breaths, use aero chamber, and rinse after steroid. Test performed by Lazarus MD DO [facility] CPFT Ulcer of left lower extremit y, [...] rinse after steroid. Test performed by Lazarus MD DO [facility] CPFT Groupl B, by GOLD 2017 classification [...] rinse after steroid. Test performed by Lazarus MD DO [facility] CPFT Acute. Anemia 10/19/2017 08/09/2021 Malabsorption 10/19/2017 [...] mRNA, LNP-s, No Pre serve, 2-Dose Series (Kypha) 07/12/2021,05/16/2021,11/18/2020,11/04 COVID-19, LNP-s, No Preserve , Josue-sucrose, Ages 12+ (Pfizer) 05/16/2022 Covid-19, Mrna, Lnp-s, Pf, B ivalent, 30 Mcg, IM, 12 yrs and above (Kypha) 08/06/2022 Influenza, Whole Virus 08/19/2000 Pneumococcal Conjugate [...] - 11/20/2023 5:17 PM ESTAddended by: AARON MRAX on: 11/20/2023 05:17 PM Modules accepted: Orders [...] her BiPap that will help -- call [facility] for further advice as this is [...] - 11/20/2023 8:03 AM EST Patient sees [facility]. Was supposed to have visit this week. Please see if she attended and if we can get visit note. * Telephone Encounter - Linda Snowden RN - 11/19/2023 3:58 PM EST TT message from TIMMY Calvin to put patient on for follow up phone calls tomorrow and weekend s/p HV for [facility] admission. Patient was admitted to [facility] 10/30-11/05 with headaches, UTI, hypokalemia. TIMMY [...] bleeding s/p tooth extraction. Advised to call [facility] back with any new or worsening symptoms. Follow up phone call scheduled. TIMMY making return HV tomorrow afternoon Follow up phone call scheduled Routing to care team Linda Snowden RN, BSN [facility] yeast fermentation attendant Navigator documented in this encounter Plan of Treatment Upcoming Encounters Date Type Department Care Team (Latest Contact Info) Description 11/24/2023 10:00 AM EST Scheduled Telephone [facility], [facility] [address] [place] [address] Coordinator, [facility] [address] [facility] [place] [address] 11/25/2023 11:30 AM EST Immunization/Injec tion Hematology/Oncology Treatment, [place] [address] [place] [address] Nurse, Med [address] [place] [address] 12/08/2023 12:40 PM EST Office Visit Neurology [facility] [place] [address] [place] [address] Rani Hernandez PA-C [address] [place] [address] 12/21/2023 2:10 PM EDT Hospital Encounter [facility], Operating Room [facility] [address] [place] [phone] Yared Bennett, [address] [place] [phone] 12/21/2023 2:10 PM EDT - 12/21/2023 3:00 PM EDT Surgery [facility], Operating Room [facility] [address] [place] [phone] Yared Bennett, [address] [place] [phone] DESTROY LUMBAR SACRAL NERVE IMAGING SINGLE 02/01/2024 12:30 PM EDT Imaging Radiology [address] [place] [address] 02/22/2024 1:40 PM EDT Office Visit Family [facility] [address] [place] [address] Aaron Marx MD [address] [place] [address] 05/06/2024 3:20 PM EDT Office Visit Rheumatology [address] [place] [phone] Stef Maravilla MD [address] [place], [place] [address] 09/14/2024 11:00 AM EST Nurse Only Ancillary [place] [address] [place] [address] [place], Nurse Annual [address] [place] [address] Scheduled Procedures Name Priority Associated Diagnoses Date/Ti [...] 05/01/2024 05/01/2023, 03/05 CKD PHOS USE SMARTSET 13378 05/01/202404/05, 03/21/2022, 03/20/2021, Additional history exists GFR 05/09/2024 11/09/2023, 1202/2023, 06/09/2023, Additional history exists CKD HGB USE SMARTSET 18223 09/08/202409/08, 09/08/2023, 06/09/2023, Additional history exists Depression [...] D LEVEL ONCE IN A LIFETIME-USE SMARTSET# 31251 Completed 05/01/2023, 12/28/2014, 04/26/2012, Additional history exists [...] this encounter Medical Devices Implanted Type Area Varnisher Device Identifier Shelf Expiration Date Model / Serial / Lot Port Power Mri W/8fr Cath - [id number] Implanted:Qty : 1 on 11/02/2017 by Ignacio Guevara MD at OR [facility] Right: Internal Jugular CR BARD : PERIPHERAL VASCULAR 07/04/2019 [id number] / / [id number] documented as of this encounter Visit Diagnoses [...] specific identity) Health Care Agent Care Teams Faculty Member Relationship Specialty Start Date End Date Aaron Marx MD [address] [place] [address] PCP - General Internal Medicine 11/09/23 documented as of this encounter
--- OUTSIDE RECORDS SUMMARY | 2023-11-29 19:38 | External Medical Summary | Summary of Care ---
Author Name Unknown Organization [facility] Address [address] [place] [address] Phone [phone] Care Team Providers Care Plate Mill Hand Name Role Phone Petra Marx MD Primary Care Provider Encounter Details Date Type Department Care Team (Late st Contact Info) Description 11/23/2023 Orders Only Family Practice [facility] [address] [place] [address] Petra Marx MD [address] [place] [address] Allergies Active Allergy Reactions Criticality Noted Date [...] morning. 90 Tablet 0 12/26/2022 Active Creon 14311-51199 UNIT Oral Capsule Delayed Release Particles (Pancrelipase (Anr-Mqmw-Qyqr)) TAKE 4 CAPSULES THREE TIMES DAILY 720 [...] Follows with endocrinology at [facility] Stage 3a chronic kidney disease 04/16/2023 COPD, [...] rinse after steroid. Test performed by Lazarus FLIGHT/TRANSPORT NURSE CPFT Moderate persistent asthma w ithout complication 10/11/2019 08/09/2021 Overview: In Check dial performed to assess inhaler technique: 11/25/19 Name of inhalers Albuterol Pass: Yes at 40L/min and Trelegy Ellipta Pass: Yes at 35L/min. Encourage to take deep breaths, use aero chamber, and rinse after steroid. Test performed by Lazarus FLIGHT/TRANSPORT NURSE CPFT Ulcer of left lower extremit y, [...] rinse after steroid. Test performed by Lazarus FLIGHT/TRANSPORT NURSE CPFT Groupl B, by GOLD 2017 classification [...] rinse after steroid. Test performed by Lazarus FLIGHT/TRANSPORT NURSE CPFT Acute. Anemia 10/19/2017 08/09/2021 Malabsorption 10/19/2017 [...] mRNA, LNP-s, No Pre serve, 2-Dose Series ([employer]) 07/12/2021,05/16/2021,11/18/2020,11/04 COVID-19, LNP-s, No Preserve , Josue-sucrose, Ages 12+ ([employer]) 05/16/2022 Covid-19, Mrna, Lnp-s, Pf, B ivalent, 30 Mcg, IM, 12 yrs and above ([employer]) 08/06/2022 Pneumococcal Conjugate Vacc, 13 Valent (Prevnar) [...] EST Scheduled Telephone [facility], [facility] [address] [place] [address] Coordinator, [facility] [address] [place] [address] 11/25/2023 11:30 AM EST Immunization/Injec tion Hematology/Oncology Treatment, [place] [address] [place] [address] Nurse, Med [address] [place] [address] [address] 12/08/2023 12:40 PM EST Office Visit Neurology [facility] [place] [address] [facility] [place] [address] Rani Hernandez PA-C [address] [facility] [place] [address] 12/21/2023 2:10 PM EDT Hospital Encounter OR [facility], Operating Room OSS [address] [place] [phone] Yared Bennett, DO [address] [place] [phone] 12/21/2023 2:10 PM EDT - 12/21/2023 3:00 PM EDT Surgery OR [facility], Operating Room OSS [address] [place] [phone] Yared Bennett, DO [address] [place] [phone] DESTROY LUMBAR SACRAL NERVE IMAGING SINGLE 02/01/2024 12:30 PM EDT Imaging Radiology [address] [place] [address] 02/22/2024 1:40 PM EDT Office Visit Family [facility] [address] [place] [address] Petra Marx MD [address] [place] [address] 05/06/2024 3:20 PM EDT Office Visit Rheumatology [address] [place] [phone] Stef Maravilla MD [address] [place] [address] [place] [address] 09/14/2024 11:00 AM EST Nurse Only Ancillary [address] [place] [address] Parvez, Nurse [address] [place] [address] Scheduled Procedures Name Priority Associated Diagnoses Date/Ti [...] 05/01/2024 05/01/2023, 03/05 CKD PHOS USE SMARTSET 03746 05/01/202404/05, 03/21/2022, 03/20/2021, Additional history exists GFR 05/09/2024 11/09/2023, 10/06, 11/01/2023, Additional history exists Depression Screening 09/08/2024 09/08/2023, 01/28/20 18 TSH 10/31/2024 10/31/2023, 12/02/2023, 07/30/2022, Additional history exists CKD HGB USE SMARTSET 49326 11/02/202411/02, 09/08/2023, 09/08/2023, Additional history exists O2 [...] D LEVEL ONCE IN A LIFETIME-USE SMARTSET# 88819 Completed 05/01/2023, 12/28/2014, 04/26/2012, Additional history exists [...] this encounter Medical Devices Implanted Type Area It Support Manager Device Identifier Shelf Expiration Date Model / Serial / Lot Port Power Mri W/8fr Cath - [id number] Implanted:Qty : 1 on 11/02/2017 by Ignacio Guevara MD at OR [facility] Right: Internal Jugular CR BARD : PERIPHERAL VASCULAR 07/04/2019 [id number] / / [id number] documented as of this encounter Procedures Procedure Name Priority Date/Time Associated Diagnosis Comments CHEMISTRY-OUTSIDE Routine 10/31/2023 TSH Routine 10/31/2023 CHEMISTRY-OUTSIDE Routine 10/30/2023 documented in this encounter Results * TSH (10/31/2023) TSH - OUTSIDE LAB 1.438 0.300 - 4.500 UIU/ML OUTSIDE LAB (SEE SCANNED REPORT) Blood Venous blood specimen / Unknown 10/31/2023 [place]ona TRUJILLO B LOOD ORDERABLES OUTSIDE LAB (SEE SCANNED REPORT) * CHEMISTRY-OUTSIDE (10/31/2023) Not all results display below - see scan for full detail OUTSIDE LAB (SEE SCANNED REPORT) Comment:SEE SCAN - BMP CREATININE-OUTSID E LAB 0.93 0.6 - 1.2 MG/DL OUTSIDE LAB (SEE SCANNED REPORT) EGFR-OUTSIDE LAB 61.8 ML/MIN OUT SIDE LAB (SEE SCANNED REPORT) POTASSIUM-OUTSIDE LAB 3.9 3.5 - 5.1 MMOL/L OUTSIDE LAB (SEE SCANNED REPORT) GLUCOSE-OUTSIDE LAB 96 70 - 99 MG/DL OUTSIDE LAB (SEE [...] LAB OUTSIDE LAB (SEE SCANNED REPORT) HEMOGLOBIN, [id number] LAB OUTSIDE LAB (SEE SCANNED REPORT) PHOSPHORUS-OUTSID E LAB OUTSIDE LAB (SEE SCANNED REPORT) PTH-OUTSIDE LAB OUTS [facility] (SEE SCANNED REPORT) MICROALBUMIN RATIO-OUTSIDE LAB OUTSIDE LA B (SEE SCANNED REPORT) PROTEIN, UA-OUTSIDE LAB OUTSIDE LAB (SEE SCANNED REPORT) HEMOGLOBIN-OUTSID E LAB OUTSIDE LAB (SEE SCANNED REPORT) 10/31/2023 Verona Templeton PA-C LABOR ATORY OUTSIDE LAB (SEE SCANNED REPORT) * (ABNORMAL) CHEMISTRY-OUTSIDE (10/30/2023) Not all results display below - see scan for full detail OUTSIDE LAB (SEE SCANNED REPORT) Comment:SEE SCAN - BMP, PTIN R CREATININE-OUTSID E LAB 0.96 0.6 - 1.2 MG/DL OUTSIDE LAB (SEE SCANNED REPORT) EGFR-OUTSIDE LAB 59.5 ML/MIN OUT SIDE LAB (SEE SCANNED REPORT) [...] LAB OUTSIDE LAB (SEE SCANNED REPORT) HEMOGLOBIN, [id number] LAB OUTSIDE LAB (SEE SCANNED REPORT) PHOSPHORUS-OUTSID E LAB OUTSIDE LAB (SEE SCANNED REPORT) PTH-OUTSIDE LAB OUTS [place] (SEE SCANNED REPORT) MICROALBUMIN RATIO-OUTSIDE LAB OUTSIDE LA B (SEE SCANNED REPORT) PROTEIN, UA-OUTSIDE LAB OUTSIDE LAB (SEE SCANNED REPORT) HEMOGLOBIN-OUTSID E LAB OUTSIDE LAB (SEE SCANNED REPORT) 10/30/2023 [facility] Templeton [facility] (SEE SCANNED REPORT) documented in this encounter Advance Directives Healthcare Agents on File Name Relationship Healthcare Agent Relationship Communication Ivonne Michelle Other - (no specific identity) Health Care Agent Care Teams Plate Mill Hand Relationship Specialty Start Date End Date Petra Marx MD [address] [place] [address] PCP - General Internal Medicine 11/09/23 documented as of this encounter
--- OUTSIDE RECORDS SUMMARY | 2023-11-29 19:38 | External Medical Summary | Summary of Care ---
Author Name Unknown Organization [facility] Address [address] [place] [address] Phone [phone] Care Team Providers Care Polyethylene Combiner Name Role Phone Aaron Marx MD Primary Care Provider Reason for Visit * Reason Onset Date Comments [facility]: Maintenance 11/19/2023 Encounter Details Date Type Department Care Team (Late st Contact Info) Description 11/19/2023 Telephone [facility], [facility] [address] [place] [address] [facility], Nurse [facility] [address] [place] [address] [facility]: Maintenance Allergies Active Allergy [...] morning. 90 Tablet 0 3 Active Creon 85329-98698 UNIT Oral Capsule Delayed Release Particles (Pancrelipase (Bjy-Aqet-Hatj)) TAKE 4 CAPSULES THREE TIMES DAILY 720 [...] rinse after steroid. Test performed by Lazarus HAY CHOPPER CPFT Moderate persistent asthma w ithout complication 10/11/2019 08/09/2021 Overview: In Check dial performed to assess inhaler technique: 11/25/19 Name of inhalers Albuterol Pass: Yes at 40L/min and Trelegy Ellipta Pass: Yes at 35L/min. Encourage to take deep breaths, use aero chamber, and rinse after steroid. Test performed by Lazarus HAY CHOPPER CPFT Ulcer of left lower extremit y, [...] rinse after steroid. Test performed by Lazarus HAY CHOPPER CPFT Groupl B, by GOLD 2017 classification [...] rinse after steroid. Test performed by Lazarus HAY CHOPPER CPFT Acute. Anemia 10/19/2017 08/09/2021 Malabsorption 10/19/2017 [...] mRNA, LNP-s, No Pre serve, 2-Dose Series ([employer]) 07/12/2021,05/16/2021,11/18/2020,11/04 COVID-19, LNP-s, No Preserve , Josue-sucrose, Ages 12+ ([employer]) 05/16/2022 Covid-19, Mrna, Lnp-s, Pf, B ivalent, 30 Mcg, IM, 12 yrs and above ([employer]) 08/06/2022 Influenza, Whole Virus 08/19/2000 Pneumococcal Conjugate [...] as of this encounter Miscellaneous Notes * Addendum Note - Aaron Marx MD [...] her BiPap that will help -- call [facility] Neurology for further advice as this is [...] - 11/20/2023 8:03 AM EST Patient sees [facility] Neurology. Was supposed to have visit this [...] bleeding s/p tooth extraction. Advised to call [facility] back with any new or worsening symptoms. Follow up phone call scheduled. TIMMY making return HV tomorrow afternoon Follow up phone call scheduled Routing to care team Linda Snowden RN, BSN [facility] finance professor Navigator documented in this encounter Plan of Treatment Upcoming Encounters Date Type Department Care Team (Latest Contact Info) Description 11/21/2023 11:30 AM EST Scheduled Telephone [facility], [facility] 132 [facility] [place] [address] [facility], Nurse [address] [place] [address] 11/25/2023 11:30 AM EST Immunization/Injec tion Hematology/Oncology Treatment, [place] [address] [place] [address] Nurse, Med [address] [place] [address] 12/08/2023 12:40 PM EST Office Visit Neurology [facility] [address] [place] [address] Rani Hernandez PA-C [address] [place] [address] 12/21/2023 2:10 PM EDT Hospital Encounter [facility], Operating Room [facility] [address] [place] [phone] Yared Bennett, [address] [place] [address] 12/21/2023 2:10 PM EDT - 12/21/2023 3:00 PM EDT Surgery OR [facility], Operating Room [facility] [address] [place] [phone] Yared Bennett, [address] [place] [phone] DESTROY LUMBAR SACRAL NERVE IMAGING SINGLE 02/01/2024 12:30 PM EDT Imaging Radiology [address] [place] [address] 02/22/2024 1:40 PM EDT Office Visit Family [facility] [address] [place] [address] Aaron Marx MD [address] [place] [address] 05/06/2024 3:20 PM EDT Office Visit Rheumatology [address] [place] [phone] Stef Maravilla MD [address] [facility] [place] [address] 09/14/2024 11:00 AM EST Nurse Only Ancillary [address] [place] [address] [facility], Nurse [address] [place] [address] Scheduled Procedures Name Priority Associated Diagnoses Date/Ti [...] 05/01/2024 05/01/2023, 03/05 CKD PHOS USE SMARTSET 31188 05/01/202404/05, 03/21/2022, 03/20/2021, Additional history exists GFR 05/09/2024 11/09/2023, 1202/2023, 06/09/2023, Additional history exists CKD HGB USE SMARTSET 73324 09/08/202409/08, 09/08/2023, 06/09/2023, Additional history exists Depression [...] D LEVEL ONCE IN A LIFETIME-USE SMARTSET# 06969 Completed 05/01/2023, 12/28/2014, 04/26/2012, Additional history exists [...] this encounter Medical Devices Implanted Type Area Culled Fruit Packer Device Identifier Shelf Expiration Date Model / Serial / Lot Port Power Mri W/8fr Cath - [id number] Implanted:Qty : 1 on 11/02/2017 by Ignacio Guevara MD at OR [facility] Right: Internal Jugular CR BARD : PERIPHERAL VASCULAR 07/04/2019 [id number] / / [id number] documented as of this encounter Visit Diagnoses [...] specific identity) Health Care Agent Care Teams Polyethylene Combiner Relationship Specialty Start Date End Date Aaron Marx MD [address] [place] [address] PCP - General Internal Medicine 11/09/23 documented as of this encounter
--- OUTSIDE RECORDS SUMMARY | 2023-11-29 19:38 | External Medical Summary | Summary of Care ---
Author Name Unknown Organization [facility] Address [address] [place] [address] Phone [phone] Care Team Providers Care Operations Architect Name Role Phone Petra Marx MD Primary Care Provider Encounter Details Date Type Department Care Team (Late st Contact Info) Description 11/23/2023 Orders Only Family Practice [facility] [address] [place] [address] Petra Marx MD [address] [place] [address] Allergies Active Allergy Reactions Criticality Noted Date [...] morning. 90 Tablet 0 12/26/2022 Active Creon 31765-98389 UNIT Oral Capsule Delayed Release Particles (Pancrelipase (Mgw-Xcov-Cbcr)) TAKE 4 CAPSULES THREE TIMES DAILY 720 [...] previously. Follows with endocrinology at [facility] Stage 3a chronic kidney disease 04/16/2023 COPD, [...] rinse after steroid. Test performed by Lazarus GLASSWARE MAKER DEMONSTRATOR CPFT Moderate persistent asthma w ithout complication 10/11/2019 08/09/2021 Overview: In Check dial performed to assess inhaler technique: 11/25/19 Name of inhalers Albuterol Pass: Yes at 40L/min and Trelegy Ellipta Pass: Yes at 35L/min. Encourage to take deep breaths, use aero chamber, and rinse after steroid. Test performed by Lazarus GLASSWARE MAKER DEMONSTRATOR CPFT Ulcer of left lower extremit y, [...] rinse after steroid. Test performed by Lazarus GLASSWARE MAKER DEMONSTRATOR CPFT Groupl B, by GOLD 2017 classification [...] rinse after steroid. Test performed by Lazarus GLASSWARE MAKER DEMONSTRATOR CPFT Acute. Anemia 10/19/2017 08/09/2021 Malabsorption 10/19/2017 [...] mRNA, LNP-s, No Pre serve, 2-Dose Series ([employer]) 07/12/2021,05/16/2021,11/18/2020,11/04 COVID-19, LNP-s, No Preserve , Josue-sucrose, Ages 12+ ([employer]) 05/16/2022 Covid-19, Mrna, Lnp-s, Pf, B ivalent, 30 Mcg, IM, 12 yrs and above ([employer]) 08/06/2022 Pneumococcal Conjugate Vacc, 13 Valent (Prevnar) [...] [facility] [address] [place] [address] Coordinator, [facility] [address] [place] [address] 11/25/2023 11:30 AM EST Immunization/Injec tion Hematology/Oncology Treatment, [place] [address] [place] [address] Nurse, Med [address] [place] [address] [address] 12/08/2023 12:40 PM EST Office Visit Neurology [facility] [address] [facility] [place] [address] Rani Hernandez PA-C [address] [facility] [place] [address] 12/21/2023 2:10 PM EDT Hospital Encounter OR [facility], Operating Room [facility] [address] [place] [phone] Yared Bennett, DO [address] [place] [phone] 12/21/2023 2:10 PM EDT - 12/21/2023 3:00 PM EDT Surgery OR [facility], Operating Room [facility] [address] [place] [phone] Yared Bennett, DO [address] [place] [phone] DESTROY LUMBAR SACRAL NERVE IMAGING SINGLE 02/01/2024 12:30 PM EDT Imaging Radiology [address] [place] [address] 02/22/2024 1:40 PM EDT Office Visit Family [facility] [address] [place] [address] Petra Marx MD [address] [place] [address] 05/06/2024 3:20 PM EDT Office Visit Rheumatology [address] [place] [phone] Stef Maravilla MD [address] [place] [address] [place] [address] 09/14/2024 11:00 AM EST Nurse Only Ancillary [address] [place] [address] [place], Nurse [address] [place] [address] Scheduled Procedures Name Priority Associated Diagnoses Date/Ti [...] 05/01/2024 05/01/2023, 03/05 CKD PHOS USE SMARTSET 76665 05/01/202404/05, 03/21/2022, 03/20/2021, Additional history exists GFR 05/09/2024 11/09/2023, 10/07, 11/03/2023, Additional history exists Depression Screening 09/08/2024 09/08/2023, 01/28/20 18 TSH 10/31/2024 10/31/2023, 12/02/2023, 07/30/2022, Additional history exists CKD HGB USE SMARTSET 92583 11/02/202411/02, 09/08/2023, 09/08/2023, Additional history exists O2 [...] D LEVEL ONCE IN A LIFETIME-USE SMARTSET# 73128 Completed 05/01/2023, 12/28/2014, 04/26/2012, Additional history exists [...] this encounter Medical Devices Implanted Type Area Wrapper Stitcher Device Identifier Shelf Expiration Date Model / Serial / Lot Port Power Mri W/8fr Cath - [id number] Implanted:Qty : 1 on 11/02/2017 by Ignacio Guevara MD at OR [facility] Right: Internal Jugular CR BARD : PERIPHERAL VASCULAR 07/04/2019 [id number] / / [id number] documented as of this encounter Procedures Procedure Name Priority Date/Time Associated Diagnosis Comments CHEMISTRY-OUTSIDE Routine 11/02/2023 documented in this encounter Results * (ABNORMAL) CHEMISTRY-OUTSIDE (11/02/2023) Not all results display below - see scan for full detail OUTSIDE LAB (SEE SCANNED REPORT) Comment:SEE SCAN - BMP, CBCD CREATININE-OUTSID E LAB 1.40(A) 0.6 - 1.2 MG/DL OUTSIDE LAB (SEE SCANNED REPORT) EGFR-OUTSIDE LAB 37.7 ML/MIN OUT SIDE LAB (SEE SCANNED REPORT) POTASSIUM-OUTSIDE LAB 2.9(A) 3.5 - 5.1 MMOL/L OUTSIDE LAB (SEE SCANNED REPORT) GLUCOSE-OUTSIDE LAB 119(A) 70 - 99 MG/DL OUTSIDE LAB (SEE [...] LAB OUTSIDE LAB (SEE SCANNED REPORT) HEMOGLOBIN, S9A-CROIRBP LAB OUTSIDE LAB (SEE SCANNED REPORT) PHOSPHORUS-OUTSID E LAB OUTSIDE LAB (SEE SCANNED REPORT) PTH-OUTSIDE LAB OUTS [place] LAB (SEE SCANNED REPORT) MICROALBUMIN RATIO-OUTSIDE LAB OUTSIDE [place] B (SEE SCANNED REPORT) PROTEIN, UA-OUTSIDE LAB OUTSIDE LAB (SEE SCANNED REPORT) HEMOGLOBIN-OUTSID E LAB 13.0 12.0 - 16.0 G/DL OUTSIDE LAB (SEE SCANNED REPORT) 11/02/2023 Verona Templeton PA-C LABOR ATORY OUTSIDE LAB (SEE SCANNED REPORT) documented in this encounter Advance Directives Healthcare Agents on File Name Relationship Healthcare Agent Relationship Communication Ivonne Martinez Other - (no specific identity) Health Care Agent Care Teams Operations Architect Relationship Specialty Start Date End Date Petra Marx MD [address] [place] [address] PCP - General Internal Medicine 11/09/23 documented as of this encounter
--- OUTSIDE RECORDS SUMMARY | 2023-11-29 19:39 | External Medical Summary | Summary of Care ---
Author Name Unknown Organization [facility] [address] [facility] [address] Phone [phone] Care Team Providers Care Table Games Manager Name Role Phone Petra Marx MD Primary Care Provider Reason for Visit * Reason Onset Date Comments [facility]: Maintenance 11/20/2023 Encounter Details Date Type Department Care Team (Late st Contact Info) Description 11/20/2023 12:00 PM EST Scheduled Telephone [facility], [facility] 132 [facility] [place] [address] Coordinator, [facility] 132 [facility] [place] [address] Allergies Active Allergy Reactions Criticality Noted Date [...] morning. 90 Tablet 0 12/26/2022 Active Creon 80452-91104 UNIT Oral Capsule Delayed Release Particles (Pancrelipase (Dfj-Jlqy-Xphx)) TAKE 4 CAPSULES THREE TIMES DAILY 720 [...] rinse after steroid. Test performed by Lazarus ASSURANCE MANAGER CPFT Moderate persistent asthma w ithout complication 10/11/2019 08/09/2021 Overview: In Check dial performed to assess inhaler technique: 11/25/19 Name of inhalers Albuterol Pass: Yes at 40L/min and Trelegy Ellipta Pass: Yes at 35L/min. Encourage to take deep breaths, use aero chamber, and rinse after steroid. Test performed by Lazarus ASSURANCE MANAGER CPFT Ulcer of left lower extremit y, [...] rinse after steroid. Test performed by Lazarus ASSURANCE MANAGER CPFT Groupl B, by GOLD 2017 classification [...] rinse after steroid. Test performed by Lazarus ASSURANCE MANAGER CPFT Acute. Anemia 10/19/2017 08/09/2021 Malabsorption 10/19/2017 [...] mRNA, LNP-s, No Pre serve, 2-Dose Series ([employer]now [employer])) 07/12/2021,05/16/2021,11/18/2020,11/04 COVID-19, LNP-s, No Preserve , Josue-sucrose, Ages 12+ (Pf[employer]) 05/16/2022 Covid-19, Mrna, Lnp-s, Pf, B ivalent, 30 Mcg, IM, 12 yrs and above ([employer]now [employer])) 08/06/2022 Influenza, Whole Virus 08/19/2000 Pneumococcal Conjugate [...] encounter Miscellaneous Notes * Telephone Encounter - Kevon May DO - 11/20/2023 10:13 AM EST [facility] Remote Medical Command QuickNote [facility] Subprogram: Focused Care Management (3-9 months) Recommendations: Overall her wts are actually stable - looks like her baseline is around 170. I would monitor her weights and if it continues to climb over the weekend, then I would start her DTP Care Team - Please let me know if you're in agreement. If you could also please update the specialty comments to reflect current weight expectations (ex mentions DTP with et >199) and condense to focus on most important aspects of her active medical issues. Orders: No orders of the defined types were placed in this encounter. To Do: Please see below for follow up items to be completed and correspondence: CORA to Liz's Care Team Telephonic JOANNA Pool please work on the following: relay advice as above surrounding Liz's remote patient monitoring Kevon May DO Remote Medical Command - [facility] 11/20/2023 Scheduled appointments in the next 60 days: Future Appointments-next 60 days Date/Time Provider Specialty Dept Phone 11/20/2023 12:00 PM Coordinator, Dirk Ramirez [facility] [phone] 11/20/2023 1:00 PM Dacia Calvin [facility] Dispatcher Chief [facility] [phone] 11/21/2023 11:30 AM Franco, Nurse Emiliano Brian [facility] [phone] 11/25/2023 11:30 AM NurseMarcelo Hematology Oncology [phone] 12/08/2023 12:40 PM (Arrive by 12:25 PM) Rani Hernandez PA-C Neurology [phone] 02/01/2024 12:30 PM (Arrive by 12:15 PM) MAMMOGRAPHY [facility] Radiology [phone] 02/22/2024 1:40 PM (Arrive by 1:25 PM) Petra Marx MD Family Medicine [phone] 05/06/2024 3:20 PM (Arrive by 3:05 PM) Stef Maravilla MD Rheumatology [phone] 09/14/2024 11:00 AM Nurse Parvez [facility] Ancillary [phone] * Telephone Encounter - Florence Hill LPN - 11/20/2023 9:42 AM EST Images from the original note were not included. [facility] Telephonic Nurse Follow-Up Call [facility] Subprogram: Focused Care Management (3-9 months) Follow Up Call Type: 24 hour follow up Acute issue requiring follow-up call: f/u PC per [facility] for headache, increased fatigue, patient had tooth extractions 11/19 Objective: 11/19/2023 3:16 PM 11/09/2023 1:36 PM 10/20/2023 12:11 PM 10/06/2023 10:41 AM 09/17/2023 11:52 AM VITALS ACROSS ENCOUNTERS BP 100/60 118/60 133/60 104/58 136/65 Pulse 62 58 64 68 65 Weight 77.1 kg 78 kg BMI 32.12 [...] "LEFT VENTRICULAR EJECTION FRACTION" Remote Patient Monitoring: [facility] Scale: 170.4 lbs Oxygen Needs: NO supplemental oxygen needs identified DME Needs: NO DME needs identified Medications: No medication or dose adjustments made during acute episode Subjective: Condition Status: Improvement in symptoms but not at baseline Current Concerns: Pt states headache has improved , just slight today. Not taking anything for headache, has percocetif needed. Reports fatigue about the same States no issue with tooth extraction, states no pain, -bleeding, no issue with eating Pt's weight triggered today on AMC. Increase of 5 lbs in 6 days. Pt reports increase in SOB, not on O2 SPO2 94%, HER 85 +BLE edema, pt states a little Denies ABD distention, -CP, -cough Taking diuretics as ordered. Pt reports medication is in pills pack with exception of Torsemide. States randolph has that in a bottle and hasn't missed any doses of diuretic. Pt states she doesn't think metolazone was in her pill pack yesterday. States she doesn't remember seeing it, but she can't be sure. Reports adhering to sodium and fluid restrictions. Pt states her meals come from MOM's meals, denies any salty snacks. Reports adhering to sodium restriction. No DTP in chart will forward to care team for further direction. Disposition: Routed to [facility] and/or [facility] Care Team for further advice and Follow up call scheduled for tomorrow with JOANNA Docking Pilot Future Visits Scheduled: Future Appointments-next 60 days Date/Time Provider Specialty Dept Phone 11/20/2023 12:00 PM CoordinatorDirk at Home [phone] 11/20/2023 1:00 PM Dacia Calvin [facility] Dispatcher Chief [place] [phone] 11/21/2023 11:30 AM Franco, Nurse Dirk [facility] [phone] 11/25/2023 11:30 AM Marcelo Horta Hematology Oncology [phone] 12/08/2023 12:40 PM (Arrive by 12:25 PM) Rani Hernandez PA-C Neurology [phone] 02/01/2024 12:30 PM (Arrive by 12:15 PM) MAMMOGRAPHY [facility] Radiology [phone] 02/22/2024 1:40 PM (Arrive by 1:25 PM) Petra Marx MD Family Medicine [phone] 05/06/2024 3:20 PM (Arrive by 3:05 PM) Stef Maravilla MD Rheumatology [phone] 09/14/2024 11:00 AM Nurse Parvez [facility] Ancillary [phone] Florence Hill LPN documented in this encounter Plan of Treatment Upcoming Encounters Date Type Department Care Team (Late st Contact Info) Description 11/20/2023 1:00 PM EST Home Visit Care Coordination and Integration [address] [place] [address] Dacia Calvin, [address] [place] [address] 11/21/2023 11:30 AM EST Scheduled Telephone [facility], [facility] [address] [place] [address] Region, Nurse [facility] [address] [place] [address] 11/25/2023 11:30 AM EST Immunization/Inje ction Hematology/Oncology Treatment, [place] [address] [place] [address] Nurse, Med 200 [facility] [place] [address] 12/08/2023 12:40 PM EST Office Visit Neurology [facility] [place] [address] [facility] [place] [address] Rani Hernandez PA-C 200 [facility] [place] [address] 12/21/2023 2:10 PM EDT Hospital Encounter [facility], Operating Room [facility] [address] [place] [phone] Yared Bennett, [address] [place] [phone] 12/21/2023 2:10 PM EDT - 12/21/2023 3:00 PM EDT Surgery OR [facility], Operating Room [facility] [address] [place] [phone] Yared Bennett, [address] [place] [phone] DESTROY LUMBAR SACRAL NERVE IMAGING SINGLE 02/01/2024 12:30 PM EDT Imaging Radiology [address] [place] [address] 02/22/2024 1:40 PM EDT Office Visit Family Practice [facility] [address] [place] [address] Petra Marx MD [address] [place] [address] 05/06/2024 3:20 PM EDT Office Visit Rheumatology [address] [place] [phone] Stef Maravilla MD [facility] [place] [address] 09/14/2024 11:00 AM EST Nurse Only Ancillary [address] [place] [address] [place], Nurse [address] [place] [address] Scheduled Procedures Name Priority Associated Diagnoses Date/Ti [...] 05/01/2024 05/01/2023, 03/05 CKD PHOS USE SMARTSET 57481 05/01/202404/05, 03/21/2022, 03/20/2021, Additional history exists GFR 05/09/2024 11/09/2023, 1202/2023, 06/09/2023, Additional history exists CKD HGB USE SMARTSET 66515 09/08/202409/08, 09/08/2023, 06/09/2023, Additional history exists Depression [...] D LEVEL ONCE IN A LIFETIME-USE SMARTSET# 38554 Completed 05/01/2023, 12/28/2014, 04/26/2012, Additional history exists [...] this encounter Medical Devices Implanted Type Area Glass Melt Operator Device Identifier Shelf Expiration Date Model / Serial / Lot Port Power Mri W/8fr Cath - [id number] Implanted:Qty : 1 on 11/02/2017 by Ignacio Guevara MD at [facility] Right: Internal Jugular CR BARD : PERIPHERAL VASCULAR 07/04/2019 [id number] / / [id number] documented as of this encounter Advance Directives Healthcare Agents on File Name Relationship Healthcare Agent Relationship Communication Ivonne Martinez Other - (no specific identity) Health Care Agent Care Teams Table Games Manager Relationship Specialty Start Date End Date Petra Marx MD [address] [place] [address] PCP - General Internal Medicine 11/09/23 documented as of this encounter
--- OUTSIDE RECORDS SUMMARY | 2023-11-29 19:39 | External Medical Summary | Summary of Care ---
Author Name Unknown Organization [facility] Address [address] [facility] [address] Phone [phone] Care Team Providers Care Dancing Instructor Name Role Phone Petra Marx MD Primary Care Provider Reason for Visit * Reason Onset Date Comments [facility]: Maintenance 11/20/2023 Encounter Details Date Type Department Care Team (Late st Contact Info) Description 11/20/2023 12:00 PM EST Scheduled Telephone [facility], [facility] [address] [facility] [place] [address] Coordinator, [facility] 132 [facility] [place] [address] Allergies Active Allergy Reactions Criticality Noted Date [...] morning. 90 Tablet 0 12/26/2022 Active Creon 05944-03544 UNIT Oral Capsule Delayed Release Particles (Pancrelipase ([id number])) TAKE 4 CAPSULES THREE TIMES DAILY 720 [...] Larisa-patient had previously. Follows with endocrinology at [facility] Stage 3a chronic kidney disease 04/16/2023 [...] rinse after steroid. Test performed by Lazarus COMMISSIONING AGENT CPFT Moderate persistent asthma w ithout complication 10/11/2019 08/09/2021 Overview: In Check dial performed to assess inhaler technique: 11/25/19 Name of inhalers Albuterol Pass: Yes at 40L/min and Trelegy Ellipta Pass: Yes at 35L/min. Encourage to take deep breaths, use aero chamber, and rinse after steroid. Test performed by Lazarus COMMISSIONING AGENT CPFT Ulcer of left lower extremit y, [...] rinse after steroid. Test performed by Lazarus COMMISSIONING AGENT CPFT Groupl B, by GOLD 2017 classification [...] rinse after steroid. Test performed by Lazarus COMMISSIONING AGENT CPFT Acute. Anemia 10/19/2017 08/09/2021 Malabsorption 10/19/2017 [...] mRNA, LNP-s, No Pre serve, 2-Dose Series ([employer]) 07/12/2021,05/16/2021,11/18/2020,11/04 COVID-19, LNP-s, No Preserve , Josue-sucrose, Ages 12+ (Pfizer) 05/16/2022 Covid-19, Mrna, Lnp-s, Pf, B ivalent, 30 Mcg, IM, 12 yrs and above ([employer]) 08/06/2022 Influenza, Whole Virus 08/19/2000 Pneumococcal Conjugate [...] [facility] at Home Remote Medical Command QuickNote [facility] Subprogram: Focused Care Management (3-9 months) Recommendations: [...] PM Coordinator, Dirk Ramirez [facility] [phone] 11/20/2023 1:00 PM Dacia Calvin [facility] Starting Sheet Tank Operator Family Medicine [phone] 11/21/2023 11:30 AM Franco, Nurse Emiliano Brian [facility] [phone] 11/25/2023 11:30 AM NurseMarcelo Hematology Oncology [phone] 12/08/2023 12:40 PM (Arrive by 12:25 PM) Rani Hernandez PA-C Neurology [phone] 02/01/2024 12:30 PM (Arrive by 12:15 PM) [facility]HY [place] Radiology [phone] 02/22/2024 1:40 PM (Arrive by 1:25 PM) Petra Marx MD Family Medicine [phone] 05/06/2024 3:20 PM (Arrive by 3:05 PM) Stef Maravilla MD Rheumatology [phone] 09/14/2024 11:00 AM Nurse Parvez Annual Wellness Ancillary [phone] * Telephone Encounter - Florence Hill LPN - 11/20/2023 9:42 AM EST Images from the original note were not included. [facility] Telephonic Nurse Follow-Up Call [facility] Subprogram: Focused Care Management (3-9 months) Follow Up Call Type: 24 hour follow up Acute issue requiring follow-up call: f/u PC per [facility] for headache, increased fatigue, patient had tooth [...] "LEFT VENTRICULAR EJECTION FRACTION" Remote Patient Monitoring: [facility] Scale: 170.4 lbs Oxygen Needs: NO supplemental [...] team for further direction. Disposition: Routed to [facility] and/or [facility] Care Team for further advice and Follow up call scheduled for tomorrow with JOANNA Study Coordinator Future Visits Scheduled: Future Appointments-next 60 days Date/Time Provider Specialty Dept Phone 11/20/2023 12:00 PM CoordinatorDirk at Home [phone] 11/20/2023 1:00 PM Dacia Calvin [facility] Health Starting Sheet Tank Operator Family Medicine [phone] 11/21/2023 11:30 AM Franco, Nurse Dirk [facility] Home [phone] 11/25/2023 11:30 AM Marcelo Horta Hematology Oncology [phone] 12/08/2023 12:40 PM (Arrive by 12:25 PM) Rani Hernandez PA-C Neurology [phone] 02/01/2024 12:30 PM (Arrive by 12:15 PM) [facility] [place] Radiology [phone] 02/22/2024 1:40 PM (Arrive by 1:25 PM) Petra Marx MD Family Medicine [phone] 05/06/2024 3:20 PM (Arrive by 3:05 PM) Stef Maravilla MD Rheumatology [phone] 09/14/2024 11:00 AM Nurse Parvez Annual Well[facility] Ancillary [phone] Florence Hill LPN documented in this encounter Plan of Treatment Upcoming Encounters Date Type Department Care Team (Late st Contact Info) Description 11/20/2023 1:00 PM EST Home Visit Care Coordination and Integration [address] [place] [address] Dacia Calvin, [address] [place] [address] 11/21/2023 11:30 AM EST Scheduled Telephone [facility], [facility] [address] [place] [address] Region, Nurse [facility] 132 [place] [address] 11/25/2023 11:30 AM EST Immunization/Inje ction Hematology/Oncology Treatment, [place] [address] [place] [address] Nurse, Med 200 [facility] [place] [address] 12/08/2023 12:40 PM EST Office Visit Neurology [facility] [place] [address] [facility] [place] [address] Rani Hernandez PA-C 200 [facility] [place] [address] 12/21/2023 2:10 PM EDT Hospital Encounter OR [facility], Operating Room [facility] [address] [place] [phone] Yared Bennett, [address] [place] [phone] 12/21/2023 2:10 PM EDT - 12/21/2023 3:00 PM EDT Surgery OR OSS, Operating Room [facility] [address] [place] [phone] Yared Bennett, [address] [place] [phone] DESTROY LUMBAR SACRAL NERVE IMAGING SINGLE 02/01/2024 12:30 PM EDT Imaging Radiology [address] [place] [address] 02/22/2024 1:40 PM EDT Office Visit Family [facility] [address] [place] [address] Petra Marx MD [address] [place] [address] 05/06/2024 3:20 PM EDT Office Visit Rheumatology [address] [place] [phone] Stef Maravilla MD [facility] [place] [address] 09/14/2024 11:00 AM EST Nurse Only Ancillary [address] [place] [address] [place], Nurse [address] [place] [address] Scheduled Procedures Name Priority Associated Diagnoses Date/Ti [...] 05/01/2024 05/01/2023, 03/05 CKD PHOS USE SMARTSET 06711 05/01/202404/05, 03/21/2022, 03/20/2021, Additional history exists GFR 05/09/2024 11/09/2023, 1202/2023, 06/09/2023, Additional history exists CKD HGB USE SMARTSET 26103 09/08/202409/08, 09/08/2023, 06/09/2023, Additional history exists Depression [...] D LEVEL ONCE IN A LIFETIME-USE SMARTSET# 84046 Completed 05/01/2023, 12/28/2014, 04/26/2012, Additional history exists [...] this encounter Medical Devices Implanted Type Area Alpine Patroller Device Identifier Shelf Expiration Date Model / Serial / Lot Port Power Mri W/8fr Cath - [id number] Implanted:Qty : 1 on 11/02/2017 by Ignacio Guevara MD at [facility] Right: Internal Jugular CR BARD : PERIPHERAL VASCULAR 07/04/2019 [id number] / / [id number] documented as of this encounter Advance Directives Healthcare Agents on File Name Relationship Healthcare Agent Relationship Communication Ivonne Martinez Other - (no specific identity) Health Care Agent Care Teams Dancing Instructor Relationship Specialty Start Date End Date Petra Marx MD [address] [place] [address] PCP - General Internal Medicine 11/09/23 documented as of this encounter
--- OUTSIDE RECORDS SUMMARY | 2023-11-29 19:39 | External Medical Summary | Summary of Care ---
Author Name Unknown Organization [facility] Address [address] [facility] [address] Phone [phone] Care Team Providers Care Internet Specialist Name Role Phone Petra Marx MD Primary Care Provider Reason for Visit * Reason Onset Date Comments [facility]: Maintenance 11/20/2023 Encounter Details Date Type Department Care Team (Late st Contact Info) Description 11/20/2023 12:00 PM EST Scheduled Telephone [facility], [facility] 132 [facility] [place]S [address] Coordinator, [facility] 132 [facility] [place] [address] Allergies Active Allergy Reactions Criticality Noted Date [...] morning. 90 Tablet 0 12/26/2022 Active Creon 70231-61941 UNIT Oral Capsule Delayed Release Particles (Pancrelipase (Kqp-[id number]-Ngmo)) TAKE 4 CAPSULES THREE TIMES DAILY 720 [...] Larisa-patient had previously. Follows with endocrinology at [facility] Stage 3a chronic kidney disease [...] rinse after steroid. Test performed by Lazarus RAIL OPERATOR CPFT Moderate persistent asthma w ithout complication 10/11/2019 08/09/2021 Overview: In Check dial performed to assess inhaler technique: 11/25/19 Name of inhalers Albuterol Pass: Yes at 40L/min and Trelegy Ellipta Pass: Yes at 35L/min. Encourage to take deep breaths, use aero chamber, and rinse after steroid. Test performed by Lazarus RAIL OPERATOR CPFT Ulcer of left lower extremit [...] rinse after steroid. Test performed by Lazarus RAIL OPERATOR CPFT Groupl B, by GOLD 2017 [...] rinse after steroid. Test performed by Lazarus RAIL OPERATOR CPFT Acute. Anemia 10/19/2017 08/09/2021 Malabsorption [...] mRNA, LNP-s, No Pre serve, 2-Dose Series ([employer]) 07/12/2021,05/16/2021,11/18/2020,11/04 COVID-19, LNP-s, No Preserve , Josue-sucrose, Ages 12+ (Pfizer) 05/16/2022 Covid-19, Mrna, Lnp-s, Pf, B ivalent, 30 Mcg, IM, 12 yrs and above ([employer]) 08/06/2022 Influenza, Whole Virus 08/19/2000 Pneumococcal Conjugate [...] Kathy at Home Remote Medical Command QuickNote [facility] Subprogram: Focused Care Management (3-9 months) [...] PM Coordinator, Dirk Ramirez [facility] [phone] 11/20/2023 1:00 PM Dacia Calvin [facility] Apartment Leasing Manager Family Medicine [phone] 11/21/2023 11:30 AM Franco, Nurse Emiliano Brian [facility] [phone] 11/25/2023 11:30 AM NurseMarcelo Hematology Oncology [phone] 12/08/2023 12:40 PM (Arrive by 12:25 PM) Rani Hernandez PA-C Neurology [phone] 02/01/2024 12:30 PM (Arrive by 12:15 PM) MAMMOGRAPHY [place] Radiology [phone] 02/22/2024 1:40 PM (Arrive by 1:25 PM) Petra Marx MD Family Medicine [phone] 05/06/2024 3:20 PM (Arrive by 3:05 PM) Stef Maravilla MD Rheumatology [phone] 09/14/2024 11:00 AM Nurse Parvez Annual Wellness Ancillary [phone] * Telephone Encounter - Florence Hill LPN - 11/20/2023 9:42 AM EST Images from the original note were not included. [facility] Telephonic Nurse Follow-Up Call [facility] Subprogram: Focused Care Management (3-9 months) Follow Up Call Type: 24 hour follow up Acute issue requiring follow-up call: f/u PC per [facility] for headache, increased fatigue, patient had tooth [...] "LEFT VENTRICULAR EJECTION FRACTION" Remote Patient Monitoring: [facility] Scale: 170.4 lbs Oxygen Needs: NO supplemental [...] team for further direction. Disposition: Routed to [facility] and/or [facility] Care Team for further advice and Follow up call scheduled for tomorrow with JOANNA Elementary Secretary Future Visits Scheduled: Future Appointments-next 60 days Date/Time Provider Specialty Dept Phone 11/20/2023 12:00 PM CoordinatorDirk at Home [phone] 11/20/2023 1:00 PM Dacia Calvin [facility] Health Apartment Leasing Manager Family Medicine [phone] 11/21/2023 11:30 AM Franco, Nurse Dirk [facility] [phone] 11/25/2023 11:30 AM Marcelo Horta Hematology Oncology [phone] 12/08/2023 12:40 PM (Arrive by 12:25 PM) Rani Hernandez PA-C Neurology [phone] 02/01/2024 12:30 PM (Arrive by 12:15 PM) MAMMOGRAPHY [place] Radiology [phone] 02/22/2024 1:40 PM (Arrive by 1:25 PM) Petra Marx MD Family Medicine [phone] 05/06/2024 3:20 PM (Arrive by 3:05 PM) Stef Maravilla MD Rheumatology [phone] 09/14/2024 11:00 AM Nurse Parvez Annual Wellness Ancillary [phone] Florence Hill LPN documented in this encounter Plan of Treatment Upcoming Encounters Date Type Department Care Team (Late st Contact Info) Description 11/20/2023 1:00 PM EST Home Visit Care Coordination and Integration [address] [place] [address] Dacia Calvin, [address] [place] [address] 11/21/2023 11:30 AM EST Scheduled Telephone [facility], [facility] [address] [place] [address] Region, Nurse [facility] 132 [place] [address] 11/25/2023 11:30 AM EST Immunization/Inje ction Hematology/Oncology Treatment, [place] [address] [place] [address] Nurse, Med 200 [facility] [place] [address] 12/08/2023 12:40 PM EST Office Visit Neurology [facility] [place] [address] [facility] [place] [address] Rani Hernandez PA-C 200 [facility] [place] [address] 12/21/2023 2:10 PM EDT Hospital Encounter OR [facility], Operating Room [facility] [address] [place] [phone] Yared Bennett, [address] [place] [phone] 12/21/2023 2:10 PM EDT - 12/21/2023 3:00 PM EDT Surgery OR [facility], Operating Room [facility] [address] [place] [phone] Yared Bennett, [address] [place] [phone] DESTROY LUMBAR SACRAL NERVE IMAGING SINGLE 02/01/2024 12:30 PM EDT Imaging Radiology [address] [place] [address] 02/22/2024 1:40 PM EDT Office Visit Family Practice [facility] [address] [place] [address] Petra Marx MD [address] [place] [address] 05/06/2024 3:20 PM EDT Office Visit Rheumatology [address] [place] [phone] Stef Maravilla MD [facility] [place] [address] 09/14/2024 11:00 AM EST Nurse Only Ancillary [address] [place] [address] [place], Nurse [address] [place] [address] Scheduled Procedures Name Priority Associated Diagnoses Date/Ti [...] 05/01/2024 05/01/2023, 03/05 CKD PHOS USE SMARTSET 76672 05/01/202404/05, 03/21/2022, 03/20/2021, Additional history exists GFR 05/09/2024 11/09/2023, 1202/2023, 06/09/2023, Additional history exists CKD HGB USE SMARTSET 85619 09/08/202409/08, 09/08/2023, 06/09/2023, Additional history exists Depression [...] D LEVEL ONCE IN A LIFETIME-USE SMARTSET# 92924 Completed 05/01/2023, 12/28/2014, 04/26/2012, Additional history exists [...] this encounter Medical Devices Implanted Type Area Boiling Tub Operator Device Identifier Shelf Expiration Date Model / Serial / Lot Port Power Mri W/8fr Cath - [id number] Implanted:Qty : 1 on 11/02/2017 by Ignacio Guevara MD at [facility] Right: Internal Jugular CR BARD : PERIPHERAL VASCULAR 07/04/2019 [id number] / / [id number] documented as of this encounter Advance Directives Healthcare Agents on File Name Relationship Healthcare Agent Relationship Communication Ivonne Martinez Other - (no specific identity) Health Care Agent Care Teams Internet Specialist Relationship Specialty Start Date End Date Petra Marx MD [address] [place] [address] PCP - General Internal Medicine 11/09/23 documented as of this encounter
--- OUTSIDE RECORDS SUMMARY | 2023-11-29 19:39 | External Medical Summary | Summary of Care ---
Author Name Unknown Organization [facility] Address [address] [place] [address] Phone [phone] Care Team Providers Care Virtual Assistant For Advertisers Name Role Phone Petra Marx MD Primary Care Provider Reason for Visit * Reason Comments [facility]: Maintenance Encounter Details Date Type Department Care Team (Late st Contact Info) Description 11/20/2023 10:00 AM EST [facility] Visit [facility], [facility] [place] [address] Noemi Rice, RANDELL [facility] [place] [address] Hypertensive heart and kidney disease with chronic diastolic congestive heart failure and stage 3a chronic kidney disease (HCC)* Allergies Active Allergy Reactions Criticality Noted Date [...] Status OneTouch Verio In Vitro Strip (Glucose Blood)Indications: Type 2 [...] morning. 90 Tablet 0 12/26/2022 Active Creon [id number] UNIT Oral Capsule Delayed Release Particles (Pancrelipase (Seb-Lsii-Pedn)) TAKE 4 CAPSULES THREE TIMES DAILY 720 [...] and 1 Capsule before bedtime. 60 Capsule 06/30/2023 Active rOPINIRole HCl 0.5 MG Oral [...] had previously. Follows with endocrinology at [facility] Stage 3a chronic kidney disease [...] rinse after steroid. Test performed by Lazarus BI LEAD CPFT Moderate persistent asthma w ithout complication 10/11/2019 08/09/2021 Overview: In Check dial performed to assess inhaler technique: 11/25/19 Name of inhalers Albuterol Pass: Yes at 40L/min and Trelegy Ellipta Pass: Yes at 35L/min. Encourage to take deep breaths, use aero chamber, and rinse after steroid. Test performed by Lazarus BI LEAD CPFT Ulcer of left lower extremit y, [...] rinse after steroid. Test performed by Lazarus BI LEAD CPFT Groupl B, by GOLD 2017 classification [...] rinse after steroid. Test performed by Lazarus BI LEAD CPFT Acute. Anemia 10/19/2017 08/09/2021 Malabsorption 10/19/2017 [...] mRNA, LNP-s, No Pre serve, 2-Dose Series (Breath of Life) 07/12/2021,05/16/2021,11/18/2020,11/04 COVID-19, LNP-s, No Preserve , Josue-sucrose, Ages 12+ (Breath of Life) 05/16/2022 Covid-19, Mrna, Lnp-s, Pf, B ivalent, 30 Mcg, IM, 12 yrs and above (Pfizer) 08/06/2022 Pneumococcal Conjugate Vacc, 13 Valent (Prevnar) [...] Sign Reading Time Taken Comments Blood Pressure 90/60 11/20/2023 12:00 PM EST Pulse 80 11/20/2023 12:00 PM EST Temperature 36.7 C (98 F) 11/20/2023 12:00 PM EST Respiratory Rate - - Oxygen Saturation - - Inhaled Oxygen Concentration - - Weight - - Height - - Body Mass Index - - documented in this encounter Progress Notes * Noemi Rice RN - 11/20/2023 11:43 AM EST Images from the original note were not included. [facility] Assistant To The [employer] Monthly Visit Date: 11/20/2023 Time: 11:45 AM Name: Liz Braswell : 1950 Current Concerns: Patient being seen for follow up today. Had some teeth pulled yesterday. Has some facial swelling, but denies severe pain, fever. No activebleeding observed. Pt taking amoxicillin as ordered and has follow up with Dr Simons scheduled [facility], 11/23. Continues to complain of chronic headaches. Rates pain today 810. Is taking percocet for pain. Just took one about 15 minutes ago. Has Neurology appt on 12/08/23 for evaluation. Blood pressure on lower side today 90/60. Pt didn't eat or drink much yesterday due to tooth extraction. Denies feeling dizzy or light headed. Will increase fluids today up to 2 L per 24 hours. BP Readings from Last 8 Encounters: 11/20/23 90/60 11/19/23 100/60 11/09/23 118/60 10/20/23 133/60 10/06/23 104/58 09/17/23 136/65 09/08/23 116/62 09/08/23 116/62 Discussed ongoing border line low potassium despite supplements. Discussed potassium rich foods to consume. HF- wt a little higher today. Does not present with sxs of fluid overload. No edema. LSC. Vitals wnl for pt. Pt taking all medications as ordered. Reinforced low sodium diet. Physical Exam: BP 90/60 (BP Site: Right Arm, BP Position: Sitting, BP Cuff Size: Regular) | Pulse 80 | Temp 36.7 C (98 F) (Tympanic) Pain 8/10 headache Physical Exam HENT: Mouth/Throat: Mouth: Mucous membranes are moist. Pharynx: Oropharynx is clear. Cardiovascular: Rate and Rhythm: Normal rate. Pulses: Normal pulses. Pulmonary: Effort: Pulmonary effort is normal. Abdominal: General: Bowel sounds are normal. Palpations: Abdomen is soft. Musculoskeletal: Right lower leg: No edema. Left lower leg: No edema. Skin: General: Skin is warm and dry. Neurological: Mental Status: She is alert and oriented to person, place, and time. Problems/Symptoms: Review of Systems Constitutional: Negative for chills and fever. HENT: Positive for dental problem (bottom tooth extracted. no active bleeding). Eyes: Negative. Respiratory: Negative. Cardiovascular: Negative. Gastrointestinal: Negative. Endocrine: Negative. Genitourinary: Negative. Musculoskeletal: Negative. Skin: Negative. Neurological: Positive for headaches. Negative for dizziness and light-headedness. Hematological: Negative. Psychiatric/Behavioral: Negative. Medication Reconciliation: (See medication list) Does patient take medications as ordered: Yes Patient Well Being: PHQ2/9: No questionnaires available. MAH-10 Completed this Visit: No. Routine visit and No falls since last visit Advanced Care Planning: POLST. Reinforcement/Education: Educated on home safety: Create a fall proof home Clear floors of clutter, loose wires, throw rugs, and cords. Make sure halls, stairways, and entrances are well lit. Install a nightlight in your bedroom, hallway and bathroom. Install grab bars or handrails in the bathroom and on stairs. Use a non-skid tub/shower mat. Avoid climbing on a chair; instead use a step stool with a high handrail. Keep sidewalks and steps in good repair Keep steps and sidewalks free of snow and ice. Using aids to support and prevent falls If you have poor balance or have fallen in the past, consider additional support such as a cane or walker. Use a cane with good support and that is the proper length for you. Use a walker if a cane doesnt provide enough support. Avoid medications that increase the risk of falling by causing dizziness, change in sensation or slowed reflexes. Certain medicines may cause falls - blood pressure pills, heart medicines, water pills, or sleepingpills. Be sure to understand each medicine that you are taking and any side effects that may occur. Improve your balance and flexibility with muscle strengthening exercises. Ask your health care provider for some exercises that will be right for you. Reviewed HF symptom monitoring: -Weigh self daily in am, post-void and record -Do not add salt to food, avoid foods high in sodium -Limit fluids to 2 liters per day -Report the following: ->2 lb weight gain in one day or 5 lbs in a week to PCP -increased edema in feet, abdomen or hands -increased SOB and cough, especially if at night -increased fatigue or vertigo Reinforced safety education and fall prevention. and Reinforced medication regimen. Timing., Dosing., and Purspose. Treatment/Plan: Continue mouth care as instructed by dentist. Continue antibiotics until finished. Daily wts Low sodium diet Fluids <2 L per day Phone calls on the weekend. Follow up with dentist Thursday , 11/23. Will have TIMMY recheck bp next week. Pt to call if having dizziness, lightheadedness or decrease in urine output. Home Interventions Provided: Reinforced current Plan of Care, including self-management and medication regimen Patient's 'Red Flags': Fever, chills Light headed or dizzy Decrease in urine output Patient Needs to Remember: Call [facility] at with any new or worsening health concerns or problems, red flag symptoms. Referrals Needed: NA Follow Up: Is there cellular connectivity/connectivity in the home? Yes Does the patient have internet in the home? No Patient encouraged to call the intake phone number for all urgent but not emergent issues. Is the patient new to [facility] within the last 30 days? No, Assess appropriateness for upcoming telehealth visits. Cancel telehealth visits & schedule home visit with care steam shovel operator(s)as indicated. Provider is in agreement with Plan of Care: Yes Scheduled to follow up with patient in 24 hours with phone call. Noemi Rice RN 11/20/2023 11:45 AM documented in this encounter Plan of Treatment Upcoming Encounters Date Type Department Care Team (Latest Contact Info) Description 11/21/2023 11:30 AM EST Scheduled Telephone [facility] at Home, [facility] [address] [place] [address] Region, Nurse [facility] 132 [facility] [place] [address] 11/25/2023 11:30 AM EST Immunization/Injec tion Hematology/Oncology Treatment, [place] [address] [place] [address] Nurse, Med [address] [place] [address] 12/08/2023 12:40 PM EST Office Visit Neurology [facility] [address] [place] [address] Rani Hernandez PA-C [address] [place] [address] 12/21/2023 2:10 PM EDT Hospital Encounter [facility], Operating Room [facility] [address] [place] [phone] Yared [place], [address] [place] [phone] 12/21/2023 2:10 PM EDT - 12/21/2023 3:00 PM EDT Surgery OR [facility], Operating Room [facility] [address] [place] [phone] Yared [place], DO [address] [place] [phone] DESTROY LUMBAR SACRAL NERVE IMAGING SINGLE 02/01/2024 12:30 PM EDT Imaging Radiology [address] [place] [address] 02/22/2024 1:40 PM EDT Office Visit Family [facility] [address] [place] [address] Petra Marx MD [address] [place] [address] 05/06/2024 3:20 PM EDT Office Visit Rheumatology [address] [place] [phone] Stef Maravilla MD [address] [facility] [place] [address] 09/14/2024 11:00 AM EST Nurse Only Ancillary [address] [place] [address] [place], Nurse [address] [place] [address] Scheduled Procedures Name Priority Associated Diagnoses Date/Ti [...] 05/01/2024 05/01/2023, 03/05 CKD PHOS USE SMARTSET 95200 05/01/202404/05, 03/21/2022, 03/20/2021, Additional history exists GFR 05/09/2024 11/09/2023, 12/0 02/2023, 06/09/2023, Additional history exists CKD HGB USE SMARTSET 05096 09/08/202409/08, 09/08/2023, 06/09/2023, Additional history exists Depression [...] D LEVEL ONCE IN A LIFETIME-USE SMARTSET# 60925 Completed 05/01/2023, 12/28/2014, 04/26/2012, Additional history exists [...] this encounter Medical Devices Implanted Type Area New Car Make Ready Mechanic Device Identifier Shelf Expiration Date Model / Serial / Lot Port Power Mri W/8fr Cath - [id number] Implanted:Qty : 1 on 11/02/2017 by Ignacio Guevara MD at OR [facility] Right: Internal Jugular CR BARD : PERIPHERAL VASCULAR 07/04/2019 [id number] / / [id number] documented as of this encounter Visit Diagnoses Diagnosis Hypertensive heart and kidney disease with chronic diastolic congestive heart failure and stage 3a chronic kidney disease (HCC)- Primary Spondylosis of lumbar region without myelopathy or radiculopathy Lumbosacral spondylosis without myelopathy documented in this encounter Advance Directives Healthcare Agents on File Name Relationship Healthcare Agent Relationship Communication Ivonne Michelle Other - (no specific identity) Health Care Agent Care Teams Virtual Assistant For Advertisers Relationship Specialty Start Date End Date Petra Marx MD 132 [place] [address] PCP - General Internal Medicine 11/09/23 documented as of this encounter
--- OUTSIDE RECORDS SUMMARY | 2023-11-29 19:39 | External Medical Summary | Summary of Care ---
Author Name Unknown Organization [facility] Address [address] [place] [address] Phone [phone] Care Team Providers Care Cable Strander Name Role Phone Petra Marx MD Primary Care Provider Reason for Visit * Reason Onset Date Comments [facility]: Maintenance 11/19/2023 Encounter Details Date Type Department Care Team (Late st Contact Info) Description 11/19/2023 Telephone [facility], [facility] [address] [place] [address] [facility], Nurse [facility] [address] [place] [address] [facility]: Maintenance Allergies Active Allergy [...] morning. 90 Tablet 0 12/26/2022 Active Creon 93991-85924 UNIT Oral Capsule Delayed Release Particles (Pancrelipase (Uuc-Hyka-Fyfw)) TAKE 4 CAPSULES THREE TIMES DAILY 720 [...] previously. Follows with [facility]ocrinology at [facility] Stage 3a chronic kidney disease 04/16/2023 [...] and rinse after steroid. Test performed by A.[place] ELECTRONIC DEVICE REPAIRER CPFT Moderate persistent asthma w ithout complication 10/11/2019 08/09/2021 Overview: In Check dial performed to assess inhaler technique: 11/25/19 Name of inhalers Albuterol Pass: Yes at 40L/min and Trelegy Ellipta Pass: Yes at 35L/min. Encourage to take deep breaths, use aero chamber, and rinse after steroid. Test performed by Lazarus ELECTRONIC DEVICE REPAIRER CPFT Ulcer of left lower extremit y, [...] rinse after steroid. Test performed by Lazarus ELECTRONIC DEVICE REPAIRER CPFT Groupl B, by GOLD 2017 classification [...] rinse after steroid. Test performed by Lazarus ELECTRONIC DEVICE REPAIRER CPFT Acute. Anemia 10/19/2017 08/09/2021 Malabsorption 10/19/2017 [...] mRNA, LNP-s, No Pre serve, 2-Dose Series ([employer]) 07/12/2021,05/16/2021,11/18/2020,11/04 COVID-19, LNP-s, No Preserve , Josue-sucrose, Ages 12+ (Pfizer) 05/16/2022 Covid-19, Mrna, Lnp-s, Pf, B ivalent, 30 Mcg, IM, 12 yrs and above ([employer]) 08/06/2022 Influenza, Whole Virus 08/19/2000 Pneumococcal Conjugate [...] encounter Miscellaneous Notes * Addendum Note - Katie Giron MED [...] of her Percocet. * Telephone Encounter - Petra Marx MD - 11/20/2023 8:03 AM EST Patient sees [facility] Neurology. Was supposed to have visit this week. Please see if she attended and if we can get visit note. * Telephone Encounter - Linda Snowden RN - 11/19/2023 3:58 PM EST TT message from TIMMY Calvin to put patient on for follow up phone calls tomorrow and weekend s/p HV for [facility] admission. Patient was admitted to [facility] 10/30-11/05 with headaches, UTI, hypokalemia. TIMMY [...] bleeding s/p tooth extraction. Advised to call [facility] back with any new or worsening symptoms. Follow up phone call scheduled. TIMMY making return HV tomorrow afternoon Follow up phone call scheduled Routing to care team Linda Snowden RN, BSN [facility] line maintenance supervisor Navigator documented in this encounter Plan of Treatment Upcoming Encounters Date Type Department Care Team (Late st Contact Info) Description 11/20/2023 12:00 PM EST Scheduled Telephone [facility], [facility] [address] [place] [address] Coordinator, [place] [address] [place] [address] 11/20/2023 1:00 PM EST Home Visit Care Coordination and Integration [address] [facility] [place] [address] Dacia Calvin Community Health Hostess Party Sales Representative [address] [place] [address] [place] [address] 11/21/2023 11:30 AM EST Scheduled Telephone [facility], [facility] [address] [place] [address] Region, Nurse [place] [address] [facility] [place] [address] 11/25/2023 11:30 AM EST Immunization/Inje ction Hematology/Oncology Treatment, [place] [address] [place] [address] Nurse, Med 200 [facility] [place] [address] 12/08/2023 12:40 PM EST Office Visit Neurology [facility] 200 [place] [address] Rani Hernandez PA-C 200 [place] [address] 12/21/2023 2:10 PM EDT Hospital Encounter OR [facility], Operating Room [facility] 132 [place] [phone] Yared [place] DO 132 [place] [phone] 12/21/2023 2:10 PM EDT - 12/21/2023 3:00 PM EDT Surgery OR [facility], Operating Room [facility] [address] [place] [phone] Yared [place] DO [address] [place] [phone] DESTROY LUMBAR SACRAL NERVE IMAGING SINGLE 02/01/2024 12:30 PM EDT Imaging Radiology [address] [place] [address] 02/22/2024 1:40 PM EDT Office Visit Family [facility] [address] [place] [address] Petra Marx MD [address] [place] [address] 05/06/2024 3:20 PM EDT Office Visit Rheumatology [address] [place] [phone] Stef Maravilla MD [facility] [place] [address] 09/14/2024 11:00 AM EST Nurse Only Ancillary [address] [place] [address] [place], Nurse [address] [place] [address] Scheduled Procedures Name Priority Associated Diagnoses Date/Ti [...] 05/01/2024 05/01/2023, 03/05 CKD PHOS USE SMARTSET 63041 05/01/202404/05, 03/21/2022, 03/20/2021, Additional history exists GFR 05/09/2024 11/09/2023, 02/2023, 06/09/2023, Additional history exists CKD HGB USE SMARTSET 64694 09/08/202409/08, 09/08/2023, 06/09/2023, Additional history exists Depression [...] D LEVEL ONCE IN A LIFETIME-USE SMARTSET# 80337 Completed 05/01/2023, 12/28/2014, 04/26/2012, Additional history exists [...] this encounter Medical Devices Implanted Type Area Burrer Machine Device Identifier Shelf Expiration Date Model / Serial / Lot Port Power Mri W/8fr Cath - [id number] Implanted:Qty : 1 on 11/02/2017 by Ignacio Guevara MD at [facility] Right: Internal Jugular CR BARD : PERIPHERAL VASCULAR 07/04/2019 [id number] / / [id number] documented as of this encounter Visit Diagnoses [...] specific identity) Health Care Agent Care Teams Cable Strander Relationship Specialty Start Date End Date Petra Marx MD [address] [place] [address] PCP - General Internal Medicine 11/09/23 documented as of this encounter
--- OUTSIDE RECORDS SUMMARY | 2023-11-29 19:39 | External Medical Summary | Summary of Care ---
Author Name Unknown Organization [facility] Address [address] [place] [address] Phone [phone] Care Team Providers Care Java Web Architect Name Role Phone Petra Marx MD Primary Care Provider Encounter Details Date Type Department Care Team (Late st Contact Info) Description 11/19/2023 1:30 PM EST Home Visit Care Coordination and Integration [address] [place] [address] Dacia Calvin, Community Health Acid Washer Operator [address] [place] [address] [place] [address] Allergies Active Allergy Reactions Criticality Noted Date [...] morning. 90 Tablet 0 12/26/2022 Active Creon [id number] UNIT Oral Capsule Delayed Release Particles (Pancrelipase (Aip-Lvfq-Drmw)) TAKE 4 CAPSULES THREE TIMES DAILY 720 [...] rinse after steroid. Test performed by Lazarus GAS APPLIANCE REPAIRER CPFT Moderate persistent asthma w ithout complication 10/11/2019 08/09/2021 Overview: In Check dial performed to assess inhaler technique: 11/25/19 Name of inhalers Albuterol Pass: Yes at 40L/min and Trelegy Ellipta Pass: Yes at 35L/min. Encourage to take deep breaths, use aero chamber, and rinse after steroid. Test performed by Lazarus GAS APPLIANCE REPAIRER CPFT Ulcer of left lower extremit [...] rinse after steroid. Test performed by Lazarus GAS APPLIANCE REPAIRER CPFT Groupl B, by GOLD 2017 [...] rinse after steroid. Test performed by Lazarus GAS APPLIANCE REPAIRER CPFT Acute. Anemia 10/19/2017 08/09/2021 Malabsorption [...] mRNA, LNP-s, No Pre serve, 2-Dose Series ([employer]) 07/12/2021,05/16/2021,11/18/2020,11/04 COVID-19, LNP-s, No Preserve , Josue-sucrose, Ages 12+ (Webstep) 05/16/2022 Covid-19, Mrna, Lnp-s, Pf, B ivalent, 30 Mcg, IM, 12 yrs and above ([employer]) 08/06/2022 Influenza, Whole Virus 08/19/2000 Pneumococcal Conjugate [...] documented in this encounter Progress Notes * Linda Snowden RN - 11/19/2023 5:56 PM EST Spoke with patient, see other tele encounter from today. Follow up phone call scheduled. Linda Snowden RN, BSN [facility] physician industrial Navigator [phone] * NikunjDacia, Community Health Acid Washer Operator - 11/19/2023 2:40 PM EST Telemedicine visit: No Community Health Acid Washer Operator (TIMMY) documentation: Patient being seen today for follow up s/p admission to [facility]. Dx: headache, hypokalemia, CHF, UTI Patient reports [...] See surveys/assessments completed at time of visit. Electronically signed by Dacia Calvin [facility] Health Acid Washer Operator at 11/19/2023 5:55 PM EST documented in this encounter Plan of Treatment Upcoming Encounters Date Type Department Care Team (Late st Contact Info) Description 11/20/2023 12:00 PM EST Scheduled Telephone [facility], [address] [place] [address] Coordinator, [place] [address] [address] [place] [address] 11/20/2023 1:00 PM EST Home Visit Care Coordination and Integration [address] [facility] [address] Dacia Calvin [facility] Health Acid Washer Operator [address] [place] [address] [place] [address] 11/21/2023 11:30 AM EST Scheduled Telephone [facility], [place] [address] [address] [place] [address] Region, Nurse [address] [place] [address] 11/25/2023 11:30 AM EST Immunization/Inje ction Hematology/Oncology Treatment, [place] [address] [place] [address] Nurse, Med 200 [facility] [place] [address] 12/08/2023 12:40 PM EST Office [facility] 200 [facility] [place] [address] Rani Hernandez PA-C 200 [facility] [place] [address] 12/21/2023 2:10 PM EDT Hospital Encounter [facility], Operating Room [facility] [address] [place] [phone] Yared [place], DO [address] [place] [phone] 12/21/2023 2:10 PM EDT - 12/21/2023 3:00 PM EDT Surgery OR [facility], Operating Room [facility] [address] [place] [phone] Yared [place], DO [address] [place] [phone] DESTROY LUMBAR SACRAL NERVE IMAGING SINGLE 02/01/2024 12:30 PM EDT Imaging Radiology [address] [place] [address] 02/22/2024 1:40 PM EDT Office Visit Family [facility] [address] [place] [address] Petra Marx MD [address] [place] [address] 05/06/2024 3:20 PM EDT Office Visit Rheumatology [address] [place] [phone] Stef Maravilla MD [address] [place] [address] [place] [address] 09/14/2024 11:00 AM EST Nurse Only Ancillary [address] [place] [address] [place], Nurse [address] [place] [address] Scheduled Procedures Name Priority Associated Diagnoses Date/Ti [...] 05/01/2024 05/01/2023, 03/05 CKD PHOS USE SMARTSET 25458 05/01/202404/05, 03/21/2022, 03/20/2021, Additional history exists GFR 05/09/2024 11/09/2023, 02/2023, 06/09/2023, Additional history exists CKD HGB USE SMARTSET 81815 09/08/202409/08, 09/08/2023, 06/09/2023, Additional history exists Depression [...] D LEVEL ONCE IN A LIFETIME-USE SMARTSET# 26540 Completed 05/01/2023, 12/28/2014, 04/26/2012, Additional history exists [...] this encounter Medical Devices Implanted Type Area Rn Orthopedic Device Identifier Shelf Expiration Date Model / Serial / Lot Port Power Mri W/8fr Cath - [id number] Implanted:Qty : 1 on 11/02/2017 by Ignacio Guevara MD at OR [facility] Right: Internal Jugular CR BARD : PERIPHERAL VASCULAR 07/04/2019 [id number] / / [id number] documented as of this encounter Advance Directives Healthcare Agents on File Name Relationship Healthcare Agent Relationship Communication Ivonne Michelle Other - (no specific identity) Health Care Agent Care Teams Java Web Architect Relationship Specialty Start Date End Date Petra Marx MD 132 [facility] [place] [address] PCP - General Internal Medicine 11/09/23 documented as of this encounter
--- OUTSIDE RECORDS SUMMARY | 2023-11-29 19:39 | External Medical Summary | Summary of Care ---
Author Name Unknown Organization [facility] Address [address] [place] [address] Phone [phone] Care Team Providers Care Mine Captain Name Role Phone Petra Marx MD Primary Care Provider Encounter Details Date Type Department Care Team (Late st Contact Info) Description 11/19/2023 1:30 PM EST Home Visit Care Coordination and Integration [address] [place] [address] Dacia Calvin, Community Health Land Surveying Party Chief [address] [place] [address] [place] Xavier [address] Allergies Active Allergy Reactions Criticality Noted Date Comments Aminoglycosides Nebcin Atropine ? allergy to Atropine Cephalosporins Keflin Dipyridamole Persantine Meperidine And Related ? allergy to Demerol Metolazone 10/03/2021 Severe hypokalemia Parasympathomimetics Urecholine Piperacillin Sod-Tazobactam So Rash 02/03 Prochlorperazine Salicylates ASA Sulfa Antibiotics Bactrim Venlafaxine 02/03/2013 Nervous reaction documented as of this encounter (statuses as of 11/19/2023) Medications Medication Sig Dispensed Refills Start Date [...] morning. 90 Tablet 0 12/26/2022 Active Creon 44725-38139 UNIT Oral Capsule Delayed Release Particles (Pancrelipase (Any-Qbtf-Jdlo)) TAKE 4 CAPSULES THREE TIMES DAILY 720 [...] as of this encounter (statuses as of 11/19/2023) Active Problems Problem Noted Date Diagnosed Date Chronic diastolic congestive heart failure 11/09 Secondary hyperparathyroidism of renal origin Major depressive disorder, recurrent, in remissi on 11/09/2023 Hypoglycemia 06/29/2023 Last Assessment & Plan: Glucose 103 during visit. Reordered freestyle Larisa-patient had previously. Follows with endocrinology at [facility] Stage 3a chronic kidney [...] as of this encounter (statuses as of 11/19/2023) Resolved Problems Problem Noted Date Diagnosed Date [...] rinse after steroid. Test performed by Lazarus HOSPITALIST NOCTURNIST PHYSICIAN CPFT Moderate persistent asthma w ithout complication 10/11/2019 08/09/2021 Overview: In Check dial performed to assess inhaler technique: 11/25/19 Name of inhalers Albuterol Pass: Yes at 40L/min and Trelegy Ellipta Pass: Yes at 35L/min. Encourage to take deep breaths, use aero chamber, and rinse after steroid. Test performed by Lazarus HOSPITALIST NOCTURNIST PHYSICIAN CPFT Ulcer of left lower extremit y, [...] rinse after steroid. Test performed by Lazarus HOSPITALIST NOCTURNIST PHYSICIAN CPFT Groupl B, by GOLD 2017 classification [...] rinse after steroid. Test performed by Lazarus HOSPITALIST NOCTURNIST PHYSICIAN CPFT Acute. Anemia 10/19/2017 08/09/2021 Malabsorption 10/19/2017 [...] as of this encounter (statuses as of 11/19/2023) Immunizations Name Administration Dates Next Due COVID-19 mRNA, LNP-s, No Pre serve, 2-Dose Series ([employer]) 07/12/2021,05/16/2021,11/18/2020,11/04 COVID-19, LNP-s, No Preserve , Josue-sucrose, Ages 12+ ([employer]) 05/16/2022 Covid-19, Mrna, Lnp-s, Pf, B ivalent, 30 Mcg, IM, 12 yrs and above ([employer]) 08/06/2022 Influenza, Whole Virus 08/19/2000 Pneumococcal Conjugate [...] phone call scheduled. Linda Snowden RN, BSN [facility] subscription agent Navigator [phone] * NikunjDacia, Community Health Land Surveying Party Chief - 11/19/2023 2:40 PM EST Telemedicine visit: No Community Health Land Surveying Party Chief (TIMMY) documentation: Patient being seen today for follow up s/p admission to [facility]. Dx: headache, hypokalemia, CHF, UTI Patient reports [...] of visit. Electronically signed by Dacia Calvin [facility] Health Land Surveying Party Chief at 11/19/2023 5:55 PM EST documented in this encounter Plan of Treatment Upcoming Encounters Date Type Department Care Team (Late st Contact Info) Description 11/20/2023 12:00 PM EST Scheduled Telephone [facility], [address] [place] [address] Coordinator, [place] [address] [address] [place] [address] 11/20/2023 1:00 PM EST [facility] Coordination [facility] [address] [facility] [address] Dacia Calvin [facility] Health Land Surveying Party Chief [address] [place] [address] [place] [address] 11/21/2023 11:30 AM EST Scheduled Telephone [facility], [place] [address] [address] [place] [address] Region, Nurse [address] [place] [address] 11/25/2023 11:30 AM EST Immunization/Inje ction Hematology/Oncology Treatment, [place] [address] [place] [address] Nurse, Med 200 [facility] [place] [address] 12/08/2023 12:40 PM EST [facility] 200 [facility] [place] [address] Rani Hernandez PA-C 200 [facility] [place] [address] 12/21/2023 2:10 PM EDT Hospital Encounter [facility], Operating Room [facility] [address] [place] [phone] Yared Bennett, DO [address] [place] [phone] 12/21/2023 2:10 PM EDT - 12/21/2023 3:00 PM EDT Surgery OR [facility], Operating Room [facility] [address] [place] [phone] Yared Bennett, DO [address] [place] [phone] DESTROY LUMBAR SACRAL NERVE IMAGING SINGLE 02/01/2024 12:30 PM EDT Imaging Radiology [address] [place] [address] 02/22/2024 1:40 PM EDT Office Visit Family [facility] [address] [place] [address] Petra Marx MD [address] [place] [address] 05/06/2024 3:20 PM EDT Office Visit Rheumatology [address] [place] [phone] Stef Maravilla MD [address] [place] [address] [place] [address] 09/14/2024 11:00 AM EST Nurse Only Ancillary [address] [place] [address] [place], Nurse [address] [place] [address] Scheduled Procedures Name Priority Associated Diagnoses Date/Ti [...] 05/01/2024 05/01/2023, 03/05 CKD PHOS USE SMARTSET 85824 05/01/202404/05, 03/21/2022, 03/20/2021, Additional history exists GFR 05/09/2024 11/09/2023, 02/2023, 06/09/2023, Additional history exists CKD HGB USE SMARTSET 08566 09/08/202409/08, 09/08/2023, 06/09/2023, Additional history exists Depression [...] D LEVEL ONCE IN A LIFETIME-USE SMARTSET# 67293 Completed 05/01/2023, 12/28/2014, 04/26/2012, Additional history exists [...] this encounter Medical Devices Implanted Type Area Edge Inker Device Identifier Shelf Expiration Date Model / Serial / Lot Port Power Mri W/8fr Cath - [id number] Implanted:Qty : 1 on 11/02/2017 by Ignacio Guevara MD at OR [facility] Right: Internal Jugular CR BARD : PERIPHERAL VASCULAR 07/04/2019 [id number] / / [id number] documented as of this encounter Advance Directives Healthcare Agents on File Name Relationship Healthcare Agent Relationship Communication Ivonne Michelle Other - (no specific identity) Health Care Agent Care Teams Mine Captain Relationship Specialty Start Date End Date Petra Marx MD 132 [facility] [place] Hernandez [address] PCP - General Internal Medicine 11/09/23 documented as of this encounter
--- OUTSIDE RECORDS SUMMARY | 2023-11-29 19:39 | External Medical Summary | Summary of Care ---
Author Name Unknown Organization [facility] Address [address] [facility] [address] Phone [phone] Care Team Providers Care Outpatient Clerk Name Role Phone Petra Marx MD Primary Care Provider Reason for Visit * Reason Onset Date Comments [facility]: Maintenance 11/20/2023 Encounter Details Date Type Department Care Team (Late st Contact Info) Description 11/20/2023 12:00 PM EST Scheduled Telephone [facility], [facility] 132 [facility] [place] ROSS [address] Coordinator, [facility] 132 [facility] [place] [address] Allergies Active Allergy Reactions Criticality Noted Date [...] morning. 90 Tablet 0 12/26/2022 Active Creon 67249-91761 UNIT Oral Capsule Delayed Release Particles (Pancrelipase (Lbl-Mrhx-Hppt)) TAKE 4 CAPSULES THREE TIMES DAILY 720 [...] Larisa-patient had previously. Follows with endocrinology at [facility] Stage 3a chronic kidney disease 04/16/2023 COPD, [...] rinse after steroid. Test performed by Lazarus CEMENT GUN OPERATOR CPFT Moderate persistent asthma w ithout complication 10/11/2019 08/09/2021 Overview: In Check dial performed to assess inhaler technique: 11/25/19 Name of inhalers Albuterol Pass: Yes at 40L/min and Trelegy Ellipta Pass: Yes at 35L/min. Encourage to take deep breaths, use aero chamber, and rinse after steroid. Test performed by Lazarus CEMENT GUN OPERATOR CPFT Ulcer of left lower extremit [...] rinse after steroid. Test performed by Lazarus CEMENT GUN OPERATOR CPFT Groupl B, by GOLD 2017 [...] rinse after steroid. Test performed by Lazarus CEMENT GUN OPERATOR CPFT Acute. Anemia 10/19/2017 08/09/2021 Malabsorption [...] mRNA, LNP-s, No Pre serve, 2-Dose Series ([employer]) 07/12/2021,05/16/2021,11/18/2020,11/04 COVID-19, LNP-s, No Preserve , Josue-sucrose, Ages 12+ ([employer]) 05/16/2022 Covid-19, Mrna, Lnp-s, Pf, B ivalent, 30 Mcg, IM, 12 yrs and above ([employer]) 08/06/2022 Influenza, Whole Virus 08/19/2000 Pneumococcal Conjugate [...] encounter Miscellaneous Notes * Telephone Encounter - Florence Hill LPN - 11/20/2023 10:41 AM EST Call to pt no answer left detailed VM with message from DR May F/u call scheduled for tomorrow * Telephone Encounter - Kevon May DO - 11/20/2023 10:13 AM EST [facility] Remote Medical Command [facility] [place] Subprogram: Focused Care Management (3-9 months) Recommendations: [...] correspondence: CORA to Liz's Care Team Telephonic TRANSFORMER COIL WINDER Pool please work on the following: relay advice as above surrounding Liz's remote patient monitoring Kevon May DO Remote Medical Command - [facility] 11/20/2023 Scheduled appointments in the next 60 days: Future Appointments-next 60 days Date/Time Provider Specialty Dept Phone 11/20/2023 12:00 PM Coordinator, Dirk Torres [facility] [phone] 11/20/2023 1:00 PM Dacia Calvin [facility] Field Director Family Medicine [phone] 11/21/2023 11:30 AM Region, Nurse Emiliano Brian [facility] at [facility] [phone] 11/25/2023 11:30 AM NurseMarcelo Hematology Oncology [phone] 12/08/2023 12:40 PM (Arrive by 12:25 PM) Rani Hernandez PA-C Neurology [phone] 02/01/2024 12:30 PM (Arrive by 12:15 PM) [facility] [place] Radiology [phone] 02/22/2024 1:40 PM (Arrive by 1:25 PM) Petra Marx MD Family Medicine [phone] 05/06/2024 3:20 PM (Arrive by 3:05 PM) Stef Maravilla MD Rheumatology [phone] 09/14/2024 11:00 AM Nurse Par[facility] Ancillary [phone] * Telephone Encounter - Florence Hill LPN - 11/20/2023 9:42 AM EST Images from the original note were not included. [facility] Telephonic Nurse Follow-Up Call [facility] Subprogram: Focused Care Management (3-9 months) Follow Up Call Type: 24 hour follow up Acute issue requiring follow-up call: f/u PC per [facility] for headache, increased fatigue, patient had tooth [...] EJECTION FRACTION" Remote Patient Monitoring: [facility] Scale: 170.4 lbs Oxygen Needs: NO supplemental [...] team for further direction. Disposition: Routed to [facility] and/or [facility] at Home Care Team for further advice and Follow up call scheduled for tomorrow with TRANSFORMER COIL WINDER Dental Mold Maker Future Visits Scheduled: Future Appointments-next 60 days Date/Time Provider Specialty Dept Phone 11/20/2023 12:00 PM CoordinatorDirk at Home [phone] 11/20/2023 1:00 PM Dacia Calvin [facility] Field Director Family Medicine [phone] 11/21/2023 11:30 AM [facility], Nurse Dirk [facility] [phone] 11/25/2023 11:30 AM Nurse, Med 4 Hematology Oncology [phone] 12/08/2023 12:40 PM (Arrive by 12:25 PM) Rani Hernandez PA-C Neurology [phone] 02/01/2024 12:30 PM (Arrive by 12:15 PM) [facility] [place] Radiology [phone] 02/22/2024 1:40 PM (Arrive by 1:25 PM) Petra Marx MD Family Medicine [phone] 05/06/2024 3:20 PM (Arrive by 3:05 PM) Stef Maravilla MD Rheumatology [phone] 09/14/2024 11:00 AM Nurse [facility] Ancillary [phone] Florence Hill LPN documented in this encounter Plan of Treatment Upcoming Encounters Date Type Department Care Team (Late st Contact Info) Description 11/20/2023 1:00 PM EST Home Visit Care Coordination and Integration [address] [facility] [place] [address] Dacia Calvin, Community Health Field Director [address] [place] [address] [place] [address] 11/21/2023 11:30 AM EST Scheduled Telephone [facility], [facility] [address] [place] [address] [facility], Nurse [facility] [place] [address] 11/25/2023 11:30 AM EST Immunization/Inje ction Hematology/Oncology Treatment, [place] [address] [place] [address] Nurse, Med 200 [facility] [place] [address] 12/08/2023 12:40 PM EST Office Visit Neurology [facility] [address] [place] [address] Rani Hernandez PA-C [address] [place] [address] 12/21/2023 2:10 PM EDT Hospital Encounter [facility], Operating Room [facility] [address] [place] [phone] Yared Bennett DO [address] [place] [phone] 12/21/2023 2:10 PM EDT - 12/21/2023 3:00 PM EDT Surgery [facility], Operating Room [facility] [address] [place] [phone] Yared Bennett DO [address] [place] [phone] DESTROY LUMBAR SACRAL NERVE IMAGING SINGLE 02/01/2024 12:30 PM EDT Imaging Radiology [address] [place] [address] 02/22/2024 1:40 PM EDT Office Visit [facility] [address] [place] [address] Petra Marx MD [address] [place] [address] 05/06/2024 3:20 PM EDT Office Visit Rheumatology [address] [place] [phone] Stef Maravilla MD [address] [place] [address] [place] [address] 09/14/2024 11:00 AM EST Nurse Only Ancillary [address] [place] [address] [place], Nurse Annual [address] [place] [address] Scheduled Procedures Name Priority Associated Diagnoses Date/Ti [...] 05/01/2024 05/01/2023, 03/05 CKD PHOS USE SMARTSET 82006 05/01/202404/05, 03/21/2022, 03/20/2021, Additional history exists GFR 05/09/2024 11/09/2023, 02/2023, 06/09/2023, Additional history exists CKD HGB USE SMARTSET 51239 09/08/202409/08, 09/08/2023, 06/09/2023, Additional history exists Depression [...] D LEVEL ONCE IN A LIFETIME-USE SMARTSET# 43377 Completed 05/01/2023, 12/28/2014, 04/26/2012, Additional history exists [...] this encounter Medical Devices Implanted Type Area Turn Supervisor Device Identifier Shelf Expiration Date Model / Serial / Lot Port Power Mri W/8fr Cath - [id number] Implanted:Qty : 1 on 11/02/2017 by Ignacio Guevara MD at OR [facility] Right: Internal Jugular CR BARD : PERIPHERAL VASCULAR 07/04/2019 [id number] / / [id number] documented as of this encounter Advance Directives Healthcare Agents on File Name Relationship Healthcare Agent Relationship Communication Ivonne Michelle Other - (no specific identity) Health Care Agent Care Teams Outpatient Clerk Relationship Specialty Start Date End Date Petra Marx MD 132 [facility] [place] [address] PCP - General Internal Medicine 11/09/23 documented as of this encounter
--- OUTSIDE RECORDS SUMMARY | 2023-11-29 19:39 | External Medical Summary | Summary of Care ---
Author Name Unknown Organization [facility] Address [address] [place] [address] Phone [phone] Care Team Providers Care Manager Web Application Name Role Phone Petra Marx MD Primary Care Provider Reason for Visit * Reason Onset Date Comments [facility]: Maintenance 11/19/2023 Encounter Details Date Type Department Care Team (Late st Contact Info) Description 11/19/2023 Telephone [facility], [facility] [address] [place] [address] [facility], Nurse [facility] [address] [place] [address] [facility]: Maintenance Allergies Active Allergy [...] morning. 90 Tablet 0 12/26/2022 Active Creon 19671-28936 UNIT Oral Capsule Delayed Release Particles (Pancrelipase (Vui-Npmy-Kbvc)) TAKE 4 CAPSULES THREE TIMES DAILY 720 [...] Larisa-patient had previously. Follows with endocrinology at [facility] Stage 3a chronic kidney disease 04/16/2023 [...] without hematuria 10/14/2020 08/09/2021 Pyelonephritis 05/23/2020 08/09/2021 AJVI (acute kidney injury) 05/23/2020 Overview: Acute. Cellulitis [...] and rinse after steroid. Test performed by [facility] GLUING PRESSMAN CPFT Moderate persistent asthma w ithout complication 10/11/2019 08/09/2021 Overview: In Check dial performed to assess inhaler technique: 11/25/19 Name of inhalers Albuterol Pass: Yes at 40L/min and Trelegy Ellipta Pass: Yes at 35L/min. Encourage to take deep breaths, use aero chamber, and rinse after steroid. Test performed by Lazarus GLUING PRESSMAN CPFT Ulcer of left lower extremit y, [...] rinse after steroid. Test performed by Lazarus GLUING PRESSMAN CPFT Groupl B, by GOLD 2017 classification [...] rinse after steroid. Test performed by Lazarus GLUING PRESSMAN CPFT Acute. Anemia 10/19/2017 08/09/2021 Malabsorption 10/19/2017 [...] mRNA, LNP-s, No Pre serve, 2-Dose Series ([employer]) 07/12/2021,05/16/2021,11/18/2020,11/04 COVID-19, LNP-s, No Preserve , Josue-sucrose, Ages 12+ (Pfizer) 05/16/2022 Covid-19, Mrna, Lnp-s, Pf, B ivalent, 30 Mcg, IM, 12 yrs and above ([employer]) 08/06/2022 Influenza, Whole Virus 08/19/2000 Pneumococcal Conjugate [...] encounter Miscellaneous Notes * Telephone Encounter - Petra Marx MD - 11/20/2023 8:03 AM EST Patient sees [facility] Neurology. Was supposed to have visit this week. Please see if she attended and if we can get visit note. * Telephone Encounter - Linda Snowden RN - 11/19/2023 3:58 PM EST TT message from TIMMY Calvin to put patient on for follow up phone calls tomorrow and weekend s/p HV for [facility] admission. Patient was admitted to [facility] 10/30-11/05 with headaches, UTI, hypokalemia. TIMMY [...] bleeding s/p tooth extraction. Advised to call [facility] back with any new or worsening symptoms. Follow up phone call scheduled. TIMMY making return HV tomorrow afternoon Follow up phone call scheduled Routing to care team Linda Snowden RN, BSN [facility] engineering supervisor Navigator documented in this encounter Plan of Treatment Upcoming Encounters Date Type Department Care Team (Late st Contact Info) Description 11/20/2023 12:00 PM EST [facility]uled Telephone [facility] [address] [place] [address] Coordinator, [facility] 132 [facility] [place] [address] 11/20/2023 1:00 PM EST Home Visit Care Coordination and Integration [address] [place] [address] Dacia Calvin, Community Health Airborne Mission Systems Superintendent [address] [place] [address] [place] [address] 11/21/2023 11:30 AM EST Scheduled Telephone [facility] [place], [facility] [address] [place] [address] [facility], Nurse [facility] [address] [place] [address] 11/25/2023 11:30 AM EST Immunization/Inje ction Hematology/Oncology Treatment, [place] [address] [place] [address] Nurse, Med [address] [place] [address] 12/08/2023 12:40 PM EST Office Visit Neurology [facility] [address] [place] [address] Rani Hernandez PA-C [address] [place] [address] 12/21/2023 2:10 PM EDT Hospital Encounter [facility], Operating Room [facility] [address] [place] [phone] Yared Bennett, [address] [place] [phone] 12/21/2023 2:10 PM EDT - 12/21/2023 3:00 PM EDT Surgery OR [facility], Operating Room [facility] [address] [place] [phone] Yared Bennett, [address] [place] [phone] DESTROY LUMBAR SACRAL NERVE IMAGING SINGLE 02/01/2024 12:30 PM EDT Imaging Radiology [address] [place] [address] 02/22/2024 1:40 PM EDT Office Visit [facility] [address] [place] [address] Petra Marx MD [address] [place] [address] 05/06/2024 3:20 PM EDT Office Visit Rheumatology [address] [place] [phone] Stef Maravilla MD [address] [facility] [place] [address] 09/14/2024 11:00 AM EST Nurse Only Ancillary [address] [place] [address] [place], Nurse [address] [place] [address] Scheduled Procedures Name Priority Associated Diagnoses Date/Ti [...] 05/01/2024 05/01/2023, 03/05 CKD PHOS USE SMARTSET 04504 05/01/202404/05, 03/21/2022, 03/20/2021, Additional history exists GFR 05/09/2024 11/09/2023, 02/2023, 06/09/2023, Additional history exists CKD HGB USE SMARTSET 55576 09/08/202409/08, 09/08/2023, 06/09/2023, Additional history exists Depression [...] D LEVEL ONCE IN A LIFETIME-USE SMARTSET# 22282 Completed 05/01/2023, 12/28/2014, 04/26/2012, Additional history exists [...] this encounter Medical Devices Implanted Type Area Insurance Sales Specialist Device Identifier Shelf Expiration Date Model / Serial / Lot Port Power Mri W/8fr Cath - [id number] Implanted:Qty : 1 on 11/02/2017 by Ignacio Guevara MD at OR [facility] Right: Internal Jugular CR BARD : PERIPHERAL VASCULAR 07/04/2019 [id number] / / [id number] documented as of this encounter Advance Directives Healthcare Agents on File Name Relationship Healthcare Agent Relationship Communication Ivonne Michelle Other - (no specific identity) Health Care Agent Care Teams Manager Web Application Relationship Specialty Start Date End Date Petra Marx MD 132 [place] [address] PCP - General Internal Medicine 11/09/23 documented as of this encounter
--- OUTSIDE RECORDS SUMMARY | 2023-11-29 19:40 | External Medical Summary | Summary of Care ---
Author Name Unknown Organization [facility] Address [address] [place] [address] Phone [phone] Care Team Providers Care Locker Room Attendant Name Role Phone Petra Marx MD Primary Care Provider Reason for Visit * Reason Onset Date Comments Test Results 11/10/2023 Encounter Details Date Type Department Care Team (Late st Contact Info) Description 11/10/2023 Telephone Family Practice [facility] [address] [place] [address] Petra Marx MD [address] [place] [address] Test Results Allergies Active Allergy Reactions Criticality Noted Date Comments Aminoglycosides Nebcin Atropine ? allergy to Atropine Cephalosporins Keflin Dipyridamole Persantine Meperidine And Related ? allergy to Demerol Metolazone 10/03/2021 Severe hypokalemia Parasympathomimetics Urecholine Piperacillin Sod-Tazobactam So Rash 02/03 Prochlorperazine Salicylates ASA Sulfa Antibiotics Bactrim Venlafaxine 02/03/2013 Nervous reaction documented as of this encounter (statuses as of 11/12/2023) Medications Medication Sig Dispensed Refills Start Date [...] morning. 90 Tablet 0 12/26/2022 Active Creon 20207-63705 UNIT Oral Capsule Delayed Release Particles (Pancrelipase (Yfb-Kgak-Wnjo)) TAKE 4 CAPSULES THREE TIMES DAILY 720 [...] as of this encounter (statuses as of 11/12/2023) Active Problems Problem Noted Date Diagnosed Date Chronic diastolic congestive heart failure 11/09 Secondary hyperparathyroidism of renal origin Major depressive disorder, recurrent, in remissi on 11/09/2023 Hypoglycemia 06/29/2023 Last Assessment & Plan: Glucose 103 during visit. Reordered freestyle Larisa-patient had previously. Follows with endocrinology at [facility] Stage 3a chronic kidney disease 04/16/2023 [...] as of this encounter (statuses as of 11/12/2023) Resolved Problems Problem Noted Date Diagnosed Date [...] rinse after steroid. Test performed by [employer] EXTERNAL AUDITOR CPFT Moderate persistent asthma w ithout complication 10/11/2019 08/09/2021 Overview: In Check dial performed to assess inhaler technique: 11/25/19 Name of inhalers Albuterol Pass: Yes at 40L/min and Trelegy Ellipta Pass: Yes at 35L/min. Encourage to take deep breaths, use aero chamber, and rinse after steroid. Test performed by [employer] EXTERNAL AUDITOR CPFT Ulcer of left lower extremit y, [...] rinse after steroid. Test performed by [employer] EXTERNAL AUDITOR CPFT Groupl B, by GOLD 2017 classification [...] rinse after steroid. Test performed by [employer] EXTERNAL AUDITOR CPFT Acute. Anemia 10/19/2017 08/09/2021 Malabsorption 10/19/2017 [...] as of this encounter (statuses as of 11/12/2023) Immunizations Name Administration Dates Next Due COVID-19 mRNA, LNP-s, No Pre serve, 2-Dose Series (Appsee) 07/12/2021,05/16/2021,11/18/2020,11/04 COVID-19, LNP-s, No Preserve , Josue-sucrose, Ages 12+ (Pfizer) 05/16/2022 Covid-19, Mrna, Lnp-s, Pf, B ivalent, 30 Mcg, IM, 12 yrs and above (Appsee) 08/06/2022 Pneumococcal Conjugate Vacc, 13 Valent (Prevnar) [...] the money to buy more. Never true 04/16/20 23 Within the past 12 months, t he food you bought just didn't last and you didn't have money to get more. Never true 04/16/2023 Sex and Gender Information Value Date Recorded Sex Assigned at Female 09/03/2022 1:25 PM EST Gender Identity Female 09/03/2022 1:25 PM EST Sexual Orientation Straight 09/03/2022 1: 25 PM EST Job Start Date Occupation Industry Not on file Not on file Not on file documented as of this encounter Miscellaneous Notes * Telephone Encounter - Noemi Zuniga OSA - 11/12/2023 9:39 AM EST Patient has been notified of the message. Patient has no further questions. * Telephone Encounter - Katie Baer MED ASSIST - 11/12/2023 9:35 AM EST message left for patient to call back. * Telephone Encounter - Petra Marx MD - 11/10/2023 10:29 AM EST Patient seen Thursday. Lab results are back: -- potassium is at the low end of normal. Definitely keep taking the potassium supplement three times a day. -- magnesium is mildly elevated, not worrisome. Can keep taking magnesium to help with headache -- urinalysis did not suggest an infection -- urine culture is negative for infection documented in this encounter Plan of Treatment Upcoming Encounters Date Type Department Care Team (Latest Contact Info) Description 11/19/2023 12:30 PM EST Home Visit winter at Home, [facility] [address] [address] Sally Bonilla RN [address] [place] [address] 11/25/2023 11:30 AM EST Immunization/Injec tion Hematology/Oncology Treatment, [place] [address] [place] [address] Nurse, Med 200 [facility] [place] [address] 12/08/2023 12:40 PM EST Office Visit Neurology [facility] 200 [facility] [place] [address] Rani Hernandez PA-C 200 [facility] [place] [place] [address] 12/21/2023 2:10 PM EDT Hospital Encounter OR [facility], Operating Room [facility] [address] [place] [phone] Yared Bennett DO [address] [place] [phone] 12/21/2023 2:10 PM EDT - 12/21/2023 3:00 PM EDT Surgery OR [facility], Operating Room [facility] [address] [place] [phone] Yared Bennett DO [address] [place] [phone] DESTROY LUMBAR SACRAL NERVE IMAGING SINGLE 02/01/2024 12:30 PM EDT Imaging Radiology [address] [place] [address] 02/22/2024 1:40 PM EDT Office Visit [facility] [address] [place] [address] Petra Marx MD [address] [place] [address] 05/06/2024 3:20 PM EDT Office Visit Rheumatology [address] [place] [phone] Stef Maravilla MD [address] [place] [address] [place] [address] 09/14/2024 11:00 AM EST Nurse Only Ancillary [address] [place] [address] [place], Nurse [address] [place] [address] Scheduled Procedures Name Priority Associated Diagnoses Date/Ti [...] 05/01/2024 05/01/2023, 03/05 CKD PHOS USE SMARTSET 53810 05/01/202404/05, 03/21/2022, 03/20/2021, Additional history exists GFR 05/09/2024 11/09/2023, 1202/2023, 06/09/2023, Additional history exists CKD HGB USE SMARTSET 55815 09/08/202409/08, 09/08/2023, 06/09/2023, Additional history exists Depression Screening 09/08/2024 09/08/2023, 01/28/20 18 TSH 09/08/2024 09/08/2023, 07/06, 05/28/2022, Additional history exists O2 ASSESSMENT COMPLETED IN PAST YEAR FOR COPD 11/09/2024 11/09/2023 DXA Scan 07/23/2025 07/23/2023, 07/05, 03/18/2022, Additional history exists Colonoscopy 08/11/2026 08/11/2016 Colorectal Cancer Screening 08/11/2026 DTaP,Tdap,and Td Vaccines (2 - Td or Tdap) 05/21/2028 05/21/2018 (Declined) Pneumococcal Vaccine: 65+ Years Completed 07/06/2019, 05/21/2018 Zoster Vaccines Completed 04/11/2020, 10/11/2019 Alpha-1 Antitrypsin Completed 06/18/2020 VITAMIN D LEVEL ONCE IN A LIFETIME-USE SMARTSET# 43832 Completed 05/01/2023, 12/28/2014, 04/26/2012, Additional history exists [...] this encounter Medical Devices Implanted Type Area Camera Assembler Device Identifier Shelf Expiration Date Model / Serial / Lot Port Power Mri W/8fr Cath - [id number] Implanted:Qty : 1 on 11/02/2017 by Ignacio Guevara MD at OR [facility] Right: Internal Jugular CR BARD : PERIPHERAL VASCULAR 07/04/2019 [id number] / / [id number] documented as of this encounter Advance Directives Healthcare Agents on File Name Relationship Healthcare Agent Relationship Communication Ivonnepetra Martinez Other - (no specific identity) Health Care Agent Care Teams Locker Room Attendant Relationship Specialty Start Date End Date Petra Marx MD [address] [place] [address] PCP - General Internal Medicine 11/09/23 documented as of this encounter
--- OUTSIDE RECORDS SUMMARY | 2023-11-29 19:40 | External Medical Summary | Summary of Care ---
Author Name Unknown Organization [facility] Address [address] [place] [address] Phone [phone] Care Team Providers Care Bed Machine Operator Name Role Phone Petra Marx MD Primary Care Provider Encounter Details Date Type Department Care Team (Late st Contact Info) Description 11/19/2023 1:30 PM EST Home Visit Care Coordination and Integration [address] [place] [address] Dacia Calvin, [facility] Classifier Tender [address] [place] [address] [place] [address] Allergies Active Allergy Reactions Criticality Noted Date [...] morning. 90 Tablet 0 12/26/2022 Active Creon 08386-98196 UNIT Oral Capsule Delayed Release Particles (Pancrelipase (Bux-Ruuw-Wwzt)) TAKE 4 CAPSULES THREE TIMES DAILY 720 [...] Larisa-patient had previously. Follows with endocrinology at [facility] Stage 3a chronic kidney [...] rinse after steroid. Test performed by [employer]SP[employer]ESSION[employer] CPFT Moderate persistent asthma w ithout complication 10/11/2019 08/09/2021 Overview: In Check dial performed to assess inhaler technique: 11/25/19 Name of inhalers Albuterol Pass: Yes at 40L/min and Trelegy Ellipta Pass: Yes at 35L/min. Encourage to take deep breaths, use aero chamber, and rinse after steroid. Test performed by [employer] CPFT Ulcer of left lower extremit y, [...] rinse after steroid. Test performed by [employer] CPFT Groupl B, by GOLD 2017 classification [...] rinse after steroid. Test performed by [employer] CPFT Acute. Anemia 10/19/2017 08/09/2021 Malabsorption 10/19/2017 [...] mRNA, LNP-s, No Pre serve, 2-Dose Series (SharedReviews) 07/12/2021,05/16/2021,11/18/2020,11/04 COVID-19, LNP-s, No Preserve , Josue-sucrose, Ages 12+ (SharedReviews) 05/16/2022 Covid-19, Mrna, Lnp-s, Pf, B ivalent, 30 Mcg, IM, 12 yrs and above (SharedReviews) 08/06/2022 Influenza, Whole Virus 08/19/2000 Pneumococcal Conjugate [...] 36.8 C (98.2 F) 11/19/2023 3:16 PM ES T Respiratory Rate 16 11/19/2023 3:16 PM EST Oxygen Saturation 92% 11/19/2023 3:16 PM EST Inhaled Oxygen Concentration - - Weight - - Height - - Body Mass Index - - documented in this encounter Progress Notes * Linda Snowden RN - 11/19/2023 5:56 PM EST Spoke with patient, see other tele encounter from today. Follow up phone call scheduled. Linda Snowden RN, BSN [facility] ccnp Navigator [phone] * NikunjDacia, [facility] Classifier Tender - 11/19/2023 2:40 PM EST Telemedicine visit: No [facility] Classifier Tender (TIMMY) documentation: Patient being seen today for follow up s/p admission to [facility]. Dx: headache, hypokalemia, CHF, [...] of visit. Electronically signed by Dacia Calvin [facility] Classifier Tender at 11/19/2023 5:55 PM EST documented in this encounter Plan of Treatment Upcoming Encounters Date Type Department Care Team (Late st Contact Info) Description 11/20/2023 12:00 PM EST Scheduled Telephone [facility], [address] [place] [address] Coordinator, [place] [address] [address] [place] [address] 11/20/2023 1:00 PM EST Home Visit [facility] Coordination and Integration [address] [address] [address] Dacia Calvin [facility] Classifier Tender [address] [place] [address] [place] [address] 11/21/2023 11:30 AM EST Scheduled Telephone [facility], [place] [address] [address] [place] [address] Region, Nurse [address] [place] [address] 11/25/2023 11:30 AM EST Immunization/Inje ction Hematology/Oncology Treatment, [place] [address] [place] [address] Nurse, Med 200 [facility] [place] [address] 12/08/2023 12:40 PM EST [facility] 200 [facility] [place] [address] Rani Hernandez PA-C 200 [facility] [place] [address] 12/21/2023 2:10 PM EDT Hospital Encounter OR [facility], Operating Room [facility] [address] [place] [phone] Yared Bennett, DO [address] [place] [phone] 12/21/2023 2:10 PM EDT - 12/21/2023 3:00 PM EDT Surgery OR [facility], Operating Room [facility] [address] [place] [phone] Yared Bennett, DO [address] [place] [phone] DESTROY LUMBAR SACRAL NERVE IMAGING SINGLE 02/01/2024 12:30 PM EDT Imaging Radiology [address] [place] [address] 02/22/2024 1:40 PM EDT Office Visit Family [facility] [address] [place] [address] Petra Marx MD [address] [place] [address] 05/06/2024 3:20 PM EDT Office Visit Rheumatology [address] [place] [phone] Stef Maravilla MD [address] [place] [address] [place] [address] 09/14/2024 11:00 AM EST Nurse Only Ancillary [address] [place] [address] [place], Nurse [address] [place] [address] Scheduled Procedures Name Priority Associated Diagnoses Date/Ti [...] 05/01/2024 05/01/2023, 03/05 CKD PHOS USE SMARTSET 57876 05/01/202404/05, 03/21/2022, 03/20/2021, Additional history exists GFR 05/09/2024 11/09/2023, 02/2023, 06/09/2023, Additional history exists CKD HGB USE SMARTSET 38384 09/08/202409/08, 09/08/2023, 06/09/2023, Additional history exists Depression [...] D LEVEL ONCE IN A LIFETIME-USE SMARTSET# 16618 Completed 05/01/2023, 12/28/2014, 04/26/2012, Additional history exists [...] encounter Medical Devices Implanted Type Area Senior Oracle Database Administrator Device Identifier Shelf Expiration Date Model / Serial / Lot Port Power Mri W/8fr Cath - [id number] Implanted:Qty : 1 on 11/02/2017 by Ignacio Guevara MD at OR [facility] Right: Internal Jugular CR BARD : PERIPHERAL VASCULAR 07/04/2019 [id number] / / [id number] documented as of this encounter Advance Directives Healthcare Agents on File Name Relationship Healthcare Agent Relationship Communication Ivonne Michelle Other - (no specific identity) Health Care Agent Care Teams Bed Machine Operator Relationship Specialty Start Date End Date Petra Marx MD 132 [facility] [place] [address] PCP - General Internal Medicine 11/09/23 documented as of this encounter
--- OUTSIDE RECORDS SUMMARY | 2023-11-29 19:40 | External Medical Summary | Summary of Care ---
Author Name Unknown Organization [facility] Address [address] [place] [address] Phone [phone] Care Team Providers Care Insole Department Worker Name Role Phone Petra Marx MD Primary Care Provider Encounter Details Date Type Department Care Team (Latest Contact Info) Description 11/11/2023 10:30 AM EST Procedure Only Endoscopy, [facility] [address] [place] [address] Dana Pickett DO [address] [place] [address] Gastroesophageal reflux disease without esophagitis* Allergies Active Allergy Reactions Criticality Noted Date Comments Aminoglycosides Nebcin Atropine ? allergy to Atropine Cephalosporins Keflin Dipyridamole Persantine Meperidine And Related ? allergy to Demerol Metolazone 10/03/2021 Severe hypokalemia Parasympathomimetics Urecholine Piperacillin Sod-Tazobactam So Rash 02/03 Prochlorperazine Salicylates ASA Sulfa Antibiotics Bactrim Venlafaxine 02/03/2013 Nervous reaction documented as of this encounter (statuses as of 11/17/2023) Medications Medication Sig Dispensed Refills Start Date [...] morning. 90 Tablet 0 12/26/2022 Active Creon [id number] UNIT Oral Capsule Delayed Release Particles (Pancrelipase (Wpl-Tgtc-Ssil)) TAKE 4 CAPSULES THREE TIMES DAILY 720 [...] as of this encounter (statuses as of 11/17/2023) Active Problems Problem Noted Date Diagnosed Date [...] as of this encounter (statuses as of 11/17/2023) Resolved Problems Problem Noted Date Diagnosed Date [...] rinse after steroid. Test performed by [facility] TOOL ROOM GEAR MACHINE OPERATOR CPFT Moderate persistent asthma w ithout complication 10/11/2019 08/09/2021 Overview: In Check dial performed to assess inhaler technique: 11/25/19 Name of inhalers Albuterol Pass: Yes at 40L/min and Trelegy Ellipta Pass: Yes at 35L/min. Encourage to take deep breaths, use aero chamber, and rinse after steroid. Test performed by [facility] TOOL ROOM GEAR MACHINE OPERATOR CPFT Ulcer of left lower extremit [...] rinse after steroid. Test performed by [employer] TOOL ROOM GEAR MACHINE OPERATOR CPFT Groupl B, by GOLD 2017 [...] rinse after steroid. Test performed by [employer] TOOL ROOM GEAR MACHINE OPERATOR CPFT Acute. Anemia 10/19/2017 08/09/2021 Malabsorption [...] as of this encounter (statuses as of 11/17/2023) Immunizations Name Administration Dates Next Due COVID-19 mRNA, LNP-s, No Pre serve, 2-Dose Series (iLike) 07/12/2021,05/16/2021,11/18/2020,11/04 COVID-19, LNP-s, No Preserve , Josue-sucrose, Ages 12+ (iLike) 05/16/2022 Covid-19, Mrna, Lnp-s, Pf, B ivalent, 30 Mcg, IM, 12 yrs and above (iLike) 08/06/2022 Pneumococcal Conjugate Vacc, 13 Valent (Prevnar) [...] Description 11/19/2023 12:30 PM EST Home Visit [facility] 132 [facility] [place] [address] Sally Bonilla, RN 132 [facility] [place] [address] 11/25/2023 11:30 AM EST Immunization/Injec tion Hematology/Oncology Treatment, [place] [address] [place] [address] Nurse, Med 200 [facility] [address] 12/08/2023 12:40 PM EST Office Visit Neurology [facility] [address] [place] [address] Rani Hernandez PA-C [address] [place] [address] 12/21/2023 2:10 PM EDT Hospital Encounter OR [facility], Operating Room [facility] [address] [place] [phone] Yared Bennett, DO [address] [place] [phone] 12/21/2023 2:10 PM EDT - 12/21/2023 3:00 PM EDT Surgery OR [facility], Operating Room [facility] [address] [place] [phone] Yared Bennett, DO [address] [place] [phone] DESTROY LUMBAR SACRAL NERVE IMAGING SINGLE 02/01/2024 12:30 PM EDT Imaging Radiology [address] [place] [address] 02/22/2024 1:40 PM EDT Office Visit Family Practice [facility] [address] [place] [address] Petra Marx MD [address] [place] [address] 05/06/2024 3:20 PM EDT Office Visit Rheumatology [address] [place] [phone] Stef Maravilla MD [address] [place] [address] [place] [address] 09/14/2024 11:00 AM EST Nurse Only Ancillary [address] [place] [address] [place], Nurse [facility] [address] [place] [address] [place] [address] Scheduled Procedures Name Priority Associated Diagnoses Date/Ti [...] 05/01/2024 05/01/2023, 03/05 CKD PHOS USE SMARTSET 23245 05/01/202404/05, 03/21/2022, 03/20/2021, Additional history exists GFR 05/09/2024 11/09/2023, 02/2023, 06/09/2023, Additional history exists CKD HGB USE SMARTSET 32324 09/08/202409/08, 09/08/2023, 06/09/2023, Additional history exists Depression [...] D LEVEL ONCE IN A LIFETIME-USE SMARTSET# 64567 Completed 05/01/2023, 12/28/2014, 04/26/2012, Additional history exists [...] this encounter Medical Devices Implanted Type Area Medical Customer Service Representative Device Identifier Shelf Expiration Date Model / Serial / Lot Port Power Mri W/8fr Cath - [id number] Implanted:Qty : 1 on 11/02/2017 by Ignacio Guevara MD at OR [facility] Right: Internal Jugular CR BARD : PERIPHERAL VASCULAR 07/04/2019 [id number] / / [id number] documented as of this encounter Procedures Procedure Name Priority Date/Time Associated Diagnosis Comments UPPER GI ENDOSCOPY 11/11/2023 documented in this encounter Results * UPPER GI ENDOSCOPY (11/11/2023) 11/11/2023 Dana Pickett DO GASTRO UPPER documented in this encounter Visit Diagnoses Diagnosis Gastroesophageal reflux disease without esophagitis- Primary Esophageal reflux Spondylosis of lumbar region without myelopathy or radiculopathy Lumbosacral spondylosis without myelopathy documented in this encounter Advance Directives Healthcare Agents on File Name Relationship Healthcare Agent Relationship Communication Ivonne Michelle Other - (no specific identity) Health Care Agent Care Teams Insole Department Worker Relationship Specialty Start Date End Date Petra Marx MD [address] [place] [address] PCP - General Internal Medicine 11/09/23 documented as of this encounter
--- OUTSIDE RECORDS SUMMARY | 2023-11-29 19:40 | External Medical Summary | Summary of Care ---
Author Name Unknown Organization [facility] Address [address] [place] [address] Phone [phone] Care Team Providers Care Care Transitions Manager Name Role Phone Petra Marx MD Primary Care Provider Reason for Visit * Reason Onset Date Comments [facility]: Maintenance 11/19/2023 Encounter Details Date Type Department Care Team (Late st Contact Info) Description 11/19/2023 Telephone [facility], [facility] [address] [place] [address] [facility], Nurse [facility] [address] [place] [address] [facility]: Maintenance Allergies Active Allergy [...] morning. 90 Tablet 0 12/26/2022 Active Creon 61124-51666 UNIT Oral Capsule Delayed Release Particles (Pancrelipase (Ckg-Ctuq-Fcbp)) TAKE 4 CAPSULES THREE TIMES DAILY 720 [...] and rinse after steroid. Test performed by [place] GLOBAL COORDINATOR CPFT Moderate persistent asthma w ithout complication 10/11/2019 08/09/2021 Overview: In Check dial performed to assess inhaler technique: 11/25/19 Name of inhalers Albuterol Pass: Yes at 40L/min and Trelegy Ellipta Pass: Yes at 35L/min. Encourage to take deep breaths, use aero chamber, and rinse after steroid. Test performed by [facility] GLOBAL COORDINATOR CPFT Ulcer of left lower extremit y, [...] rinse after steroid. Test performed by [facility] GLOBAL COORDINATOR CPFT Groupl B, by GOLD 2017 classification [...] rinse after steroid. Test performed by [facility] GLOBAL COORDINATOR CPFT Acute. Anemia 10/19/2017 08/09/2021 Malabsorption 10/19/2017 [...] mRNA, LNP-s, No Pre serve, 2-Dose Series ([employer]) 07/12/2021,05/16/2021,11/18/2020,11/04 COVID-19, LNP-s, No Preserve , Josue-sucrose, Ages 12+ (Pfizer) 05/16/2022 Covid-19, Mrna, Lnp-s, Pf, B ivalent, 30 Mcg, IM, 12 yrs and above ([employer]) 08/06/2022 Pneumococcal Conjugate Vacc, 13 Valent (Prevnar) [...] encounter Miscellaneous Notes * Telephone Encounter - Linda Snowden RN - 11/19/2023 3:58 PM EST TT message from TIMMY Calvin to put patient on for follow up phone calls tomorrow and weekend s/p HV for [facility] admission. Patient was admitted to [facility] 10/30-11/05 with headaches, UTI, hypokalemia. TIMMY had [...] bleeding s/p tooth extraction. Advised to call [facility] back with any new or worsening symptoms. Follow up phone call scheduled. TIMMY making return HV tomorrow afternoon Follow up phone call scheduled Routing to care team Linda Snowden RN, BSN [facility] skip locator Navigator documented in this encounter Plan of Treatment Upcoming Encounters Date Type Department Care Team (Latest Contact Info) Description 11/20/2023 12:00 PM EST Scheduled Telephone [facility], [address] [place] [address] Coordinator, [address] [place] [address] 11/21/2023 11:30 AM EST Scheduled Telephone [facility], [address] [place] [address] Region, Nurse [address] [place] [address] 11/25/2023 11:30 AM EST Immunization/Injec tion Hematology/Oncology Treatment, [place] [address] [place] [address] Nurse, Med [address] [place] [address] [place] [address] 12/08/2023 12:40 PM EST Office Visit Neurology [facility] [address] [facility] [place] [phone] Rani Hernandez PA-C [address] [place], [place] [address] 12/21/2023 2:10 PM EDT Hospital Encounter [facility], Operating Room [facility] [address] [place] [phone] Yared Bennett, DO [address] [place] [phone] 12/21/2023 2:10 PM EDT - 12/21/2023 3:00 PM EDT Surgery [facility], Operating Room [facility] [address] [place] [phone] Yared Bennett, DO [address] [place] [phone] DESTROY LUMBAR SACRAL NERVE IMAGING SINGLE 02/01/2024 12:30 PM EDT Imaging Radiology [address] [place] [address] 02/22/2024 1:40 PM EDT Office Visit Family Practice [facility] [address] [place] [address] Petra Marx MD [address] [place] [address] 05/06/2024 3:20 PM EDT Office Visit Rheumatology [address] [place] [phone] Stef Maravilla MD [facility] [place] [address] 09/14/2024 11:00 AM EST Nurse Only Ancillary [address] [place] [address] [place], Nurse [address] [place] [address] Scheduled Procedures Name Priority Associated Diagnoses Date/Ti [...] 05/01/2024 05/01/2023, 03/05 CKD PHOS USE SMARTSET 19389 05/01/202404/05, 03/21/2022, 03/20/2021, Additional history exists GFR 05/09/2024 11/09/2023, 1202/2023, 06/09/2023, Additional history exists CKD HGB USE SMARTSET 53716 09/08/202409/08, 09/08/2023, 06/09/2023, Additional history exists Depression [...] D LEVEL ONCE IN A LIFETIME-USE SMARTSET# [id number] Completed 05/01/2023, 12/28/2014, 04/26/2012, Additional history exists [...] this encounter Medical Devices Implanted Type Area Clerical Stock Inspector Device Identifier Shelf Expiration Date Model / Serial / Lot Port Power Mri W/8fr Cath - [id number] Implanted:Qty : 1 on 11/02/2017 by Ignacio Guevara MD at OR [facility] Right: Internal Jugular CR BARD : PERIPHERAL VASCULAR 07/04/2019 [id number] / / [id number] documented as of this encounter Advance Directives Healthcare Agents on File Name Relationship Healthcare Agent Relationship Communication Ivonne Martinez Other - (no specific identity) Health Care Agent Care Teams Care Transitions Manager Relationship Specialty Start Date End Date Petra Mrax MD [address] [place] [address] [place] [phone] PCP - General Internal Medicine 11/09/23 documented as of this encounter
--- NOTE | 2023-11-29 19:55 | Emergency Department Note ---
Impression & Plan Acute hypoxemic respiratory failure, Right lower lobe pneumonia, Hypokalemia ED Provider Note NAME: JOSHUA ZAVALA AGE: 73 SEX: F : 1950 ARRIVES VIA: Ambulance INFORMANT: Patient, ED PROVIDER(S): Lion Cannon MD CHIEF COMPLAINT: Weakness, cough, diarrhea MEDICAL DECISION MAKING: Patient presented due to concern for being found on the ground and had complained of cough and weakness with associated diarrhea. IV was established and blood work was obtained. Patient was ordered empiric antibiotics. Patient was also ordered 500 cc of IV fluid. Blood work shows a normal white count H&H and platelet count. The patient's kidney function is unremarkable. VBG does not show evidence of hypercarbia. The patient does have baseline kidney dysfunction with a creatinine 1.3. Patient does have hypokalemia at 3 with an anion gap of 12. Patient does have an elevated troponin of 133. Procalcitonin of 12. Patient is positive for coronavirus OC 43. Patient's chest x-ray does show concern for right lower lobe pneumonia. The patient had received Zosyn. I did speak with the on-call hospital service Dr. Cummings and the patient was admitted to the medicine service. Critical Care: I have personally spent 55 minutes of critical care time in direct management of this patient. This includes bedside care, interpretation of diagnostic studies, and testing, discussion with consultants, patient, and family members, and other require inpatient management activities. This 55 minutes is in excess of all separately billable procedures. Discussion w/ other healthcare providers: Dr. Cummings inpatient medicine service Prior /Outside records reviewed: I reviewed a most recent urine culture which showed pansensitive E. coli. Patient has had resistant ESBL from November 2022. Sensitive to Zosyn. Differential diagnosis: Infection, dehydration, metabolic abnormality, hypo/hyperglycemia, electrolyte imbalance, anemia, UTI, pneumonia, thyroid dysfunction among others were considered. Diagnostics, as interpreted by me: ECG: Sinus rhythm, rate of 89, normal intervals, normal axis no ST elevations, T wave version in V2 as well as in the lateral leads. Cardiac monitoring: An order was placed for continuous cardiac monitoring. The monitor shows a rate of 85 with sinus rhythm. Patient was placed on pulse oximetry Medical decision rules: Curb 65 score Imaging studies: I informally interpreted the patient's chest x-ray does show concern for right lower lobe pneumonia with formal report to follow. HPI: Patient presents from [facility] due to concern for illness and weakness. The patient was reportedly found on the floor. The patient states that she does not remember what happened but it is able to state where she is and where she lives. The patient states she has had productive cough and has been feeling generally unwell over the last several days. Patient does have productive brown sputum. Patient does not take any blood thinning medications. Patient denies any neck pain but has had some associated headache. The patient denies any nausea or vomiting but has had diarrhea. Patient does complain of lower extremity weakness. The patient does not complain of any leg or arm pain. Patient reportedly did have a temp of 101 and route. Patient did not receive any medications but was noted to be hypoxemic to 86% was placed on an oxime mask which did improve her sats. PAST MEDICAL HISTORY: See Below PAST SURGICAL HISTORY: See Below SOCIAL HISTORY: See Below HOME MEDICATIONS: See Below ALLERGIES: See Below VITALS: See Below PHYSICAL EXAMINATION: GENERAL: Ill in appearance, oxy mask in place EYE EXAM: Normal conjunctiva. PERRL, no anisocoria and EOM's grossly intact w/o pain. OROPHARYNX: Moist mucus membranes, grossly normal dentition. NECK: Trachea midline, no stridor. Supple, no nuchal rigidity, no adenopathy, non-tender. No signs of meningismus. FROM of the neck with good chin to chest and neck extension. LUNGS: Rhonchi throughout. Normal chest wall mechanics. HEART: NSR, no MRG. ABDOMEN: Abdomen soft, well-healed surgical incisional scar, midline abdominal hernia, reducible, non-tender, no masses, no rebound or guarding. BACK: No CVA TTP. SKIN: No rashes and no bruising. UPPER EXTREMITIES: Upper extremities are grossly normal. No TTP or deformity. LOWER EXTREMITIES: Grossly normal, no edema. No TTP or deformity. NEURO EXAM: Opens eyes to voice but answers questions appropriately and oriented to person place and birthday, cranial nerves II-XII grossly intact, normal speech, moves all 4 extremities. Moves bilateral lower extremities weakly but symmetrically. Past Med/Surg History Medical History Difficulty swallowing "trouble swallowing pills" Poor historian Neuropathy Recurrent major depression in remission History of DVT (deep vein thrombosis) remote hx, unknown etiology, Pacemaker Medtronic, implanted 12/2022 (bradycardia) > pt does not know when last checked Right rotator cuff tear Bronchiectasis pt unaware ILD (interstitial lung disease) Osteoporosis Nocturnal hypoxemia Osteoarthritis of left knee Kidney stones LARRY treated with BiPAP Junctional bradycardia Hypothyroidism Secondary hyperparathyroidism Pulmonary hypertension mild per 07/[address] report Atherosclerosis of both lower extremities Chronic kidney disease stage 3b GERD without esophagitis COPD (chronic obstructive pulmonary disease) "Well controlled" History of anemia Lumbar transverse process fracture Pt reports lower back detioriating - can't lie flat/sleep on a chair Pulmonary nodule seen on imaging study Reactive hypoglycemia Vitamin D deficiency Wrist injury Scar tissue surrounding remote wrist ORIF several years ago resulting in intermittent inflammation per pt Bilateral nephrolithiasis H/O concussion Remote hx "a long time ago" Incisional hernia Abdominal (from multiple surgeries/feeding tube) Obesity Sepsis 05/2020 @ [facility], urosepsis 2/2 obstructing renal stone, S/P cysto/stent and ESWL Chronic urinary tract infection recent hospitalization for this at [facility] DC'ed 11/05/23 > pt reports she is still very fatigued Sleep apnea complex sleep apnea, BIPAP (non-compliant) Hyperlipidemia per records Chronic venous insufficiency Chronic sinusitis Pancreatic insufficiency chronic pancreatitis MRSA (methicillin resistant staph aureus) culture positive Hx (Left wrist) Had 3 nasal swab and all negative (through [facility] per pt) Port-A-Cath in place right side due to poor vascular access Urinary leakage PUD (peptic ulcer disease) Had feeding tube for 28 years (has been removed for 11 years) Depression Asthma Peripheral neuropathy Lumbar stenosis Chronic diastolic (congestive) heart failure Follows with [facility] cardiology Short bowel syndrome PVC (premature ventricular contraction) Pernicious anemia (08/08/13) Surgical History History of esophageal dilatation History of cystoscopy multiple H/O shoulder surgery RT arthroscopy 05/28/2021: LMA#4 atraumatic x 1 + PNB. Anesthesia postop progress note: "Pt denies SOB at this time. Block is functioning well. Vital signs stable and appropriate. Oxygenating well considering block placement and her comorbidities. Plan to discharge home with IS." S/P right rotator cuff repair S/P ureteral stent placement Status post laser lithotripsy of ureteral calculus History of prior ablation treatment Right LE in January 2020 and left LE 04/18/20 History of partial gastrectomy History of sinus surgery History of tonsillectomy and adenoidectomy History of total abdominal hysterectomy and bilateral salpingo-oophorectomy History of cholecystectomy History of appendectomy History of open reduction and internal fixation (ORIF) procedure left wrist + manipulation (01/2018) and I&D (10/2019) History of joint replacement Rt thumb History of knee replacement procedure of right knee History of esophagogastroduodenoscopy (EGD) History of colonoscopy History of gastrointestinal surgery multiple History of cardiac cath 08/2019 ([facility])- essentially normal coronary arteries angiographically, no stents Family History Mother Family history of diabetes mellitus Sister Family history of diabetes mellitus Family history of breast cancer Father Esophageal cancer Other Family history non-contributory No family history of adverse response to anesthesia Social History Smoking Status: Never smoker Second Hand Exposure: No; Do You Dip or Chew Tobacco: No; Hx Alcohol Use: Yes Alcohol type: wine Hx Substance Use: No Preferred Language: Estonian Communication Ability: Effective Visual Impairment: No Limitations Schedule Supervisor Required: No Beliefs That Will Affect Care: None marital status: Single Current Living Situation: Alone Current Living Situation Comment: apartment at [facility] in [place]/ had aid How many Children do You have: 0 Feels Safe at Home: Yes Assistive Devices: BiPap, Denture - Upper, Denture - Lower, Glasses and Walker Allergies Allergies Allergy/AdvReac Type Severity Reaction Status Date / Time bethanechol Allergy Intermediate RASH, Verified 11/29/23 20:43 "FEELS FUNNY" Cephalosporins Allergy Intermediate RASH, Verified 11/29/23 20:43 DIARRHEA levofloxacin Allergy Intermediate RASH,TURNED Verified 11/29/23 20:43 RED Sulfa (Sulfonamide Allergy Intermediate Generalized Verified 11/29/23 20:43 Antibiotics) Rash ertapenem Allergy Mild RASH Verified 11/29/23 20:43 atropine Allergy Unknown ON [facility] MED Verified 11/29/23 20:43 LIST clindamycin Allergy Unknown Unknown Verified 11/29/23 20:43 dipyridamole Allergy Unknown PERSANTINE--ON Verified 11/29/23 20:43 GM MED LIST droperidol Allergy Unknown Unknown Verified 11/29/23 20:43 meperidine [From Demerol] Allergy Unknown ? ALLERGY Verified 11/29/23 20:43 ON [facility] MED LIST promethazine Allergy Unknown UNKNOWN Verified 11/29/23 20:43 tobramycin Allergy Unknown UNKNOWN Verified 11/29/23 20:43 aspirin AdvReac Severe BLEEDING Verified 11/29/23 20:43 doxycycline AdvReac Severe severe Verified 11/29/23 20:43 Diarrhea, nausea metolazone AdvReac Severe ELECTROLYTE Verified 11/29/23 20:43 ISSUES--HYPOKALEMIA bupropion AdvReac Intermediate NERVOUS Verified 11/29/23 20:43 REACTION cephalexin AdvReac Intermediate GI SYMPTOMS Verified 11/29/23 20:43 morphine AdvReac Intermediate NERVOUS Verified 11/29/23 20:43 REACTION TO IT nitrofurantoin AdvReac Intermediate Vomiting Verified 11/29/23 20:43 [From Macrobid] prochlorperazine AdvReac Intermediate NERVOUS Verified 11/29/23 20:43 REACTION tedizolid AdvReac Intermediate GI SYMPTOMS Verified 11/29/23 20:43 venlafaxine [From Effexor] AdvReac Intermediate NERVOUS Verified 11/29/23 20:43 REACTION lamotrigine AdvReac Unknown tremors Verified 11/29/23 20:43 Home Meds Home Medications Medication Instructions Recorded Confirmed colesevelam 625 mg tablet (WelChol) 625 mg PO TID 06/17/18 11/29/23 montelukast 10 mg tablet 10 mg PO HS 06/17/18 11/29/23 (Singulair) ipratropium 0.5 mg-albuterol 3 mg 3 ml inhalation Q4H PRN Shortness 05/05/19 11/29/23 (2.5 mg base)/3 mL nebulization Of Breath Or Wheezing soln pebqrd-rpivqiee-ydbmrce 4 cap PO TID 05/05/19 11/29/23 24,000-76,000-120,000 unit capsule,delayed rel (Creon) omeprazole magnesium 20 mg 20 mg PO BID 05/17/19 11/29/23 tablet,delayed release (Prilosec OTC) risperidone 2 mg tablet 2 mg PO HS 02/27/21 11/29/23 metolazone 2.5 mg tablet 2.5 mg PO WK 11/15/22 11/29/23 oxycodone-acetaminophen 5 mg-325 1 tab PO Q6H PRN Pain 11/15/22 11/29/23 mg tablet (Percocet) ropinirole 0.5 mg tablet 0.5 mg PO HS 11/15/22 11/29/23 valacyclovir 500 mg tablet 500 mg PO QAM 11/15/22 11/29/23 cyanocobalamin (vitamin B-12) 1,000 mcg PO DAILY 05/24/23 11/29/23 1,000 mcg tablet (Vitamin B-12) nitroglycerin 0.4 mg sublingual 0.4 mg sublingual DIRECTED PRN 05/24/23 11/29/23 tablet (Nitrostat) Chest Pain cetirizine 10 mg tablet 10 mg PO DAILY PRN Allergy Symptoms 05/29/23 11/29/23 torsemide 20 mg tablet 20 mg PO BID 06/24/23 11/29/23 calcium carbonate 600 mg calcium 1,200 mg PO TID 07/22/23 11/29/23 (1,500 mg) tablet (Calcium) fluticasone furoate 200 1 inh inhalation QAM 10/30/23 11/29/23 mcg-vilanterol 25 mcg/dose inhalation powder (Breo Ellipta) megmipeskbcs-bqaezzrx-xadmwz tablet 1 tab PO DAILY 10/30/23 11/29/23 rosuvastatin 10 mg tablet 10 mg PO QAM 10/30/23 11/29/23 vibegron 75 mg tablet (Gemtesa) 75 mg PO QAM 11/06/23 11/29/23 lamotrigine 25 mg tablet See Rx Instructions .Route .COMPLEX 11/29/23 11/29/23 potassium citrate 15 mEq (1,620 15 meq PO BID 11/29/23 11/29/23 mg) tablet,extended release Previous Rx's Medication Instructions Recorded calcitriol 0.5 mcg capsule 0.5 mcg PO BID #60 caps 12/21/22 albuterol sulfate 90 mcg/actuation 2 inh inhalation Q6H PRN Shortness 02/03/23 breath activated powder inhaler Of Breath Or Wheezing #1 ea levothyroxine 88 mcg tablet 88 mcg PO QAM #30 tabs 05/21/23 duloxetine 60 mg capsule,delayed 60 mg PO QAM #30 caps 06/04/23 release denosumab 60 mg/mL subcutaneous 60 mg subcut Q180D #1 mL 07/22/23 syringe (Prolia) diphenhydramine-zinc acetate 2 1 applic EXT QID PRN itching #30 11/04/23 %-0.1 % topical cream (Anti-Itch grams (diphenhydramine) with Zinc) potassium chloride 20 mEq 20 meq PO TID #90 tabs 11/04/23 tablet,extended release(part/cryst) topiramate 25 mg tablet 25 mg PO HS #54 tabs 11/04/23 pregabalin 100 mg capsule 100 mg PO TID 30 days #90 caps 11/09/23 Results & Data (ED) Vital Signs Vital Signs - 24 hr 11/29/23 20:00 11/29/23 20:01 11/29/23 20:01 Temperature 37.4 C 37.4 C Temperature Source Oral Oral Pulse Rate 83 86 Pulse Rate from SpO2 Sensor 83 Pulse Rhythm Regular Pulse Strength Normal Respiratory Rate 24 24 Respiratory Effort / Characteristics Non-Labored Spontaneous Respiratory Depth Normal Respiratory Pattern Regular Blood Pressure 107/64 103/61 Blood Pressure Mean 78 75 Pulse Oximetry 97 86 L Oxygen Delivery Method Oxymask Room Air Oxygen Flow Rate 3 Sepsis Recent Fever Within 48 Hours Yes Sepsis New/Unexplained Change in Mental Status Yes Sepsis Action Taken by Nursing Physician Notified 11/29/23 20:30 11/29/23 21:03 11/29/23 21:30 Temperature Temperature Source Pulse Rate 82 83 81 Pulse Rate from SpO2 Sensor 82 81 Pulse Rhythm Pulse Strength Respiratory Rate 22 18 24 Respiratory Effort / Characteristics Respiratory Depth Respiratory Pattern Blood Pressure 100/63 113/62 107/57 L Blood Pressure Mean 75 79 73 Pulse Oximetry 94 94 95 Oxygen Delivery Method Oxymask Oxymask Oxygen Flow Rate 3 3 3 Sepsis Recent Fever Within 48 Hours Sepsis New/Unexplained Change in Mental Status Sepsis Action Taken by Nursing 11/29/23 22:00 11/29/23 22:30 11/29/23 23:00 Temperature Temperature Source Pulse Rate 82 86 86 Pulse Rate from SpO2 Sensor 82 85 86 Pulse Rhythm Pulse Strength Respiratory Rate 25 H 23 26 H Respiratory Effort / Characteristics Respiratory Depth Respiratory Pattern Blood Pressure 103/53 L 90/56 L 96/51 L Blood Pressure Mean 69 67 66 Pulse Oximetry 96 95 92 Oxygen Delivery Method Oxygen Flow Rate Sepsis Recent Fever Within 48 Hours Sepsis New/Unexplained Change in Mental Status Sepsis Action Taken by Nursing 11/29/23 23:30 11/30/23 00:00 Temperature Temperature Source Pulse Rate 84 83 Pulse Rate from SpO2 Sensor 84 83 Pulse Rhythm Pulse Strength Respiratory Rate 29 H 24 Respiratory Effort / Characteristics Respiratory Depth Respiratory Pattern Blood Pressure 99/58 L 91/49 L Blood Pressure Mean 71 63 Pulse Oximetry 92 92 Oxygen Delivery Method Oxygen Flow Rate Sepsis Recent Fever Within 48 Hours Sepsis New/Unexplained Change in Mental Status Sepsis Action Taken by [facility] Medications Current Medication List: was personally reviewed by me Laboratory Data Attestation: I reviewed the patient's lab results. 11/29/23 19:55 11/29/23 19:55 Lab Results 11/29/23 11/29/23 11/29/23 Range/Units 19:40 19:55 20:53 WBC 8.34 (4.8-10.8) K/ul RBC 4.98 (4.20-5.40) M/uL Hgb 13.8 (12.0-16.0) g/dl Hct 42.4 (37.0-47.0) % MCV 85.1 (80.0-100.0) fL MCH 27.7 (25.0-34.0) pg MCHC 32.5 (32.0-36.0) g/dL RDW Std Deviation 47.6 H (36.4-46.3) fL RDW Coeff of David 15.5 H (11.5-14.5) % Plt Count 260 (130-400) K/uL MPV 10.3 (9.4-12.4) fL Neutrophils % (Manual) 69 % Lymphocytes % (Manual) 19 % Monocytes % (Manual) 11 % Myelocytes % (Man) 1 % Neutrophils # (Manual) 5.75 (1.40-6.50) K/uL Total Absolute Neuts 5.75 (1.4-6.5) K/uL Lymphocytes # (Manual) 1.58 (1.2-3.4) K/uL Total Abs Lymphocytes 1.58 (1.2-3.4) K/uL Monocytes # (Manual) 0.92 H (0.11-0.59) K/uL Myelocytes # (Manual) 0.08 H (0-0) K/uL APTT 38 H (21-31) Seconds PTT Ratio 1.3 ABG pH (7.35-7.45) ABG pCO2 (35-46) mmHg ABG pO2 (80-95) mmHg ABG HCO3 (19-24) mmol/L ABG O2 Saturation (90-95) % ABG Base Excess (-9-1.8) mEq/L Ahsan Test (Pos) VBG pH 7.38 (7.36-7.41) VBG pCO2 41 (38-50) mmHg VBG pO2 46 mmHg VBG HCO3 24 mmol/L VBG O2 Saturation 76.6 % VBG Base Excess -0.8 mEq/L Oxygen Given Sodium 145 (136-145) mmol/L Potassium 3.0 L (3.5-5.1) mmol/L Chloride 110 H (98-107) mmol/L Carbon Dioxide 23 (21-32) mmol/L Anion Gap 12 H (3-11) BUN 33 H (6-23) mg/dl Creatinine 1.32 H (0.6-1.2) mg/dl Est Cr Clr Drug Dosing 33.2 ml/min Est GFR ( Amer) 46.9 ml/min Est GFR (Non-Af Amer) 40.5 ml/min BUN/Creatinine Ratio 25.0 H (10-20) Glucose 140 H (70-99(Fasting)) mg/dl Lactate 1.2 (0.4-2.0) mmol/L Calcium 8.6 (8.6-10.3) mg/dl Magnesium 2.2 (1.7-2.4) mg/dl Total Bilirubin 0.4 (0.2-1.0) mg/dl Direct Bilirubin 0.0 (0-0.2) mg/dl AST 41 H (13-39) U/L ALT 14 (7-52) U/L Alkaline Phosphatase 67 (34-104) U/L Ammonia (18-72) umol/L Total Creatine Kinase Troponin I High Sens 133.7 H* (0-14) pg/ml B-Natriuretic Peptide (0-100) pg/ml Total Protein 7.0 (6.0-8.3) gm/dl Albumin 3.6 (3.4-5.0) gm/dl Procalcitonin 12.90 H (0-0.5) ng/ml Nasal Screen MRSA (PCR) Positive A (Negative) Adenovirus (PCR) Not Detected (NotDetected) B. pertussis DNA (PCR) Not Detected (NotDetected) B.parapertussis DNA PCR Not Detected (NotDetected) C. pneumoniae DNA (PCR) Not Detected (NotDetected) Coronavirus OC43 (PCR) DETECTED A (NotDetected) Coronavirus HKU1 (PCR) Not Detected (NotDetected) Coronavirus 229E (PCR) Not Detected (NotDetected) SARS-CoV-2 (PCR) Not Detected (NotDetected) Coronavirus NL63 (PCR) Not Detected (NotDetected) Human Metapneumovir PCR Not Detected (NotDetected) Influenza Type A (PCR) Not Detected (NotDetected) Influenza Type B (PCR) Not Detected (NotDetected) M. pneumoniae (PCR) Not Detected (NotDetected) Parainfluenza 1 (PCR) Not Detected (NotDetected) Parainfluenza 2 (PCR) Not Detected (NotDetected) Parainfluenza 3 (PCR) Not Detected (NotDetected) Parainfluenza 4 (PCR) Not Detected (NotDetected) RSV (PCR) Not Detected (NotDetected) Entero/Rhino (PCR) Not Detected (NotDetected) 11/29/23 11/29/23 11/29/23 Range/Units 22:25 22:25 22:25 WBC (4.8-10.8) K/ul RBC (4.20-5.40) M/uL Hgb (12.0-16.0) g/dl Hct (37.0-47.0) % MCV (80.0-100.0) fL MCH (25.0-34.0) pg MCHC (32.0-36.0) g/dL RDW Std Deviation (36.4-46.3) fL RDW Coeff of David (11.5-14.5) % Plt Count (130-400) K/uL MPV (9.4-12.4) fL Neutrophils % (Manual) % Lymphocytes % (Manual) % Monocytes % (Manual) % Myelocytes % (Man) % Neutrophils # (Manual) (1.40-6.50) K/uL Total Absolute Neuts (1.4-6.5) K/uL Lymphocytes # (Manual) (1.2-3.4) K/uL Total Abs Lymphocytes (1.2-3.4) K/uL Monocytes # (Manual) (0.11-0.59) K/uL Myelocytes # (Manual) (0-0) K/uL APTT (21-31) Seconds PTT Ratio ABG pH (7.35-7.45) ABG pCO2 (35-46) mmHg ABG pO2 (80-95) mmHg ABG HCO3 (19-24) mmol/L ABG O2 Saturation (90-95) % ABG Base Excess (-9-1.8) mEq/L Ahsan Test (Pos) VBG pH (7.36-7.41) VBG pCO2 (38-50) mmHg VBG pO2 mmHg VBG HCO3 mmol/L VBG O2 Saturation % VBG Base Excess mEq/L Oxygen Given Sodium (136-145) mmol/L Potassium (3.5-5.1) mmol/L Chloride (98-107) mmol/L Carbon Dioxide (21-32) mmol/L Anion Gap (3-11) BUN (6-23) mg/dl Creatinine (0.6-1.2) mg/dl Est Cr Clr Drug Dosing ml/min Est GFR ( Amer) ml/min Est GFR (Non-Af Amer) ml/min BUN/Creatinine Ratio (10-20) Glucose (70-99(Fasting)) mg/dl Lactate (0.4-2.0) mmol/L Calcium (8.6-10.3) mg/dl Magnesium (1.7-2.4) mg/dl Total Bilirubin (0.2-1.0) mg/dl Direct Bilirubin (0-0.2) mg/dl AST (13-39) U/L ALT (7-52) U/L Alkaline Phosphatase (34-104) U/L Ammonia (18-72) umol/L Total Creatine Kinase Cancelled 1131 H Troponin I High Sens Cancelled 136.2 H* (0-14) pg/ml B-Natriuretic Peptide 222 H (0-100) pg/ml Total Protein (6.0-8.3) gm/dl Albumin (3.4-5.0) gm/dl Procalcitonin (0-0.5) ng/ml Nasal Screen MRSA (PCR) (Negative) Adenovirus (PCR) (NotDetected) B. pertussis DNA (PCR) (NotDetected) B.parapertussis DNA PCR (NotDetected) C. pneumoniae DNA (PCR) (NotDetected) Coronavirus OC43 (PCR) (NotDetected) Coronavirus HKU1 (PCR) (NotDetected) Coronavirus 229E (PCR) (NotDetected) SARS-CoV-2 (PCR) (NotDetected) Coronavirus NL63 (PCR) (NotDetected) Human Metapneumovir PCR (NotDetected) Influenza Type A (PCR) (NotDetected) Influenza Type B (PCR) (NotDetected) M. pneumoniae (PCR) (NotDetected) Parainfluenza 1 (PCR) (NotDetected) Parainfluenza 2 (PCR) (NotDetected) Parainfluenza 3 (PCR) (NotDetected) Parainfluenza 4 (PCR) (NotDetected) RSV (PCR) (NotDetected) Entero/Rhino (PCR) (NotDetected) 11/29/23 11/29/23 Range/Units 23:25 23:56 WBC (4.8-10.8) K/ul RBC (4.20-5.40) M/uL Hgb (12.0-16.0) g/dl Hct (37.0-47.0) % MCV (80.0-100.0) fL MCH (25.0-34.0) pg MCHC (32.0-36.0) g/dL RDW Std Deviation (36.4-46.3) fL RDW Coeff of David (11.5-14.5) % Plt Count (130-400) K/uL MPV (9.4-12.4) fL Neutrophils % (Manual) % Lymphocytes % (Manual) % Monocytes % (Manual) % Myelocytes % (Man) % Neutrophils # (Manual) (1.40-6.50) K/uL Total Absolute Neuts (1.4-6.5) K/uL Lymphocytes # (Manual) (1.2-3.4) K/uL Total Abs Lymphocytes (1.2-3.4) K/uL Monocytes # (Manual) (0.11-0.59) K/uL Myelocytes # (Manual) (0-0) K/uL APTT (21-31) Seconds PTT Ratio ABG pH 7.40 (7.35-7.45) ABG pCO2 38 (35-46) mmHg ABG pO2 73 L (80-95) mmHg ABG HCO3 24 (19-24) mmol/L ABG O2 Saturation 95.5 H (90-95) % ABG Base Excess -1.1 (-9-1.8) mEq/L Ahsan Test Pos (Pos) VBG pH (7.36-7.41) VBG pCO2 (38-50) mmHg VBG pO2 mmHg VBG HCO3 mmol/L VBG O2 Saturation % VBG Base Excess mEq/L Oxygen Given 3L Sodium (136-145) mmol/L Potassium (3.5-5.1) mmol/L Chloride (98-107) mmol/L Carbon Dioxide (21-32) mmol/L Anion Gap (3-11) BUN (6-23) mg/dl Creatinine (0.6-1.2) mg/dl Est Cr Clr Drug Dosing ml/min Est GFR ( Amer) ml/min Est GFR (Non-Af Amer) ml/min BUN/Creatinine Ratio (10-20) Glucose (70-99(Fasting)) mg/dl Lactate (0.4-2.0) mmol/L Calcium (8.6-10.3) mg/dl Magnesium (1.7-2.4) mg/dl Total Bilirubin (0.2-1.0) mg/dl Direct Bilirubin (0-0.2) mg/dl AST (13-39) U/L ALT (7-52) U/L Alkaline Phosphatase (34-104) U/L Ammonia 25.0 (18-72) umol/L Total Creatine Kinase Troponin I High Sens (0-14) pg/ml B-Natriuretic Peptide (0-100) pg/ml Total Protein (6.0-8.3) gm/dl Albumin (3.4-5.0) gm/dl Procalcitonin (0-0.5) ng/ml Nasal Screen MRSA (PCR) (Negative) Adenovirus (PCR) (NotDetected) B. pertussis DNA (PCR) (NotDetected) B.parapertussis DNA PCR (NotDetected) C. pneumoniae DNA (PCR) (NotDetected) Coronavirus OC43 (PCR) (NotDetected) Coronavirus HKU1 (PCR) (NotDetected) Coronavirus 229E (PCR) (NotDetected) SARS-CoV-2 (PCR) (NotDetected) Coronavirus NL63 (PCR) (NotDetected) Human Metapneumovir PCR (NotDetected) Influenza Type A (PCR) (NotDetected) Influenza Type B (PCR) (NotDetected) M. pneumoniae (PCR) (NotDetected) Parainfluenza 1 (PCR) (NotDetected) Parainfluenza 2 (PCR) (NotDetected) Parainfluenza 3 (PCR) (NotDetected) Parainfluenza 4 (PCR) (NotDetected) RSV (PCR) (NotDetected) Entero/Rhino (PCR) (NotDetected) Administered Medications Potassium Chloride (K Hermilo / Wtr) 10 meq in 100 mls @ 100 mls/hr IV Q1H CATE Stop: 11/30/23 03:59 Last Admin: 11/29/23 23:25 Dose: 100 mls/hr Documented By: LISA Discontinued Medications Albuterol (Albut/Ipratrop 3mg/0.5mg Neb 3 Ml Vial) 3 ml NEB NOW STA; Protocol Stop: 11/29/23 20:33 Last Admin: 11/29/23 21:44 Dose: 3 ml Documented By: ERIC Sodium Chloride (Nss) 500 mls @ 999 mls/hr IV .Q31M CATE Stop: 11/29/23 21:00 Last Infusion: 11/29/23 22:33 Dose: Infused Documented By: Admin: 11/29/23 21:39 Dose: 999 mls/hr Documented By: ERIC Piperacillin Sod/Tazobactam Sod (Zosyn) 4.5 gm in 100 mls @ 200 mls/hr IV NOW STA Stop: 02/25/24 20:53 Last Infusion: 11/29/23 22:19 Dose: Infused Documented By: Admin: 11/29/23 21:41 Dose: 200 mls/hr Documented By: ERIC Acetaminophen (Ofirmev) 1,000 mg in 100 mls @ 400 mls/hr IV NOW STA Stop: 11/29/23 20:40 Last Infusion: 11/29/23 21:50 Dose: Infused Documented By: Admin: 11/29/23 21:35 Dose: 400 mls/hr Documented By: ERIC Imaging Data Radiologist's Impression: Head CT 11/29/23 20:26 Exam(s): CT HEAD Without Contrast EXAM: CT Head Without Intravenous Contrast CLINICAL HISTORY: Reason for exam: found down. TECHNIQUE: Axial computed tomography images of the head/brain without intravenous contrast. CTDI is 37.69 mGy and DLP is 624.41 mGy-cm. Automated exposure control was utilized for the study. A dose lowering technique was utilized adhering to the principles of ALARA. COMPARISON: Comparison made to prior brain MRI from November 02, 2023. FINDINGS: Brain: Unremarkable. No hemorrhage. No significant white matter disease. No edema. Ventricles: Mild ventriculomegaly.. Bones/joints: Unremarkable. No acute fracture. Soft tissues: Bilateral lens replacements. Sinuses: Chronic maxillary and ethmoid sinusitis with small air-fluid level in the left maxillary sinus. Status post endoscopic sinus surgery.. No acute sinusitis. Mastoid air cells: Unremarkable as visualized. No mastoid effusion. IMPRESSION: No evidence of acute intracranial pathology. Electronically signed by: Janis Roper MD 11/30/23 00:53 AM Discharge Plan Visit Data Chief Complaint: Fall Stated Complaint: Fall, Hypotension, Tachypnea ED Provider: Lion Cannon Discharge Problem: Acute hypoxemic respiratory failure, Right lower lobe pneumonia, Hypokalemia Forms Stand Alone Forms: My [place] Prescriptions Prescriptions: No Action colesevelam [WelChol] 625 mg tablet 625 mg PO TID Patient Comments: before meals , morning , noon and night montelukast [Singulair] 10 mg tablet 10 mg PO HS Prilosec OTC 20 mg tablet,delayed release (DR/EC) 20 mg PO BID Rx Instructions: morning and bedtime calcitriol 0.5 mcg capsule 0.5 mcg PO BID Qty: 60 5RF Rx Instructions: morning and bedtime levothyroxine 88 mcg tablet 88 mcg PO QAM Qty: 30 3RF pregabalin 100 mg capsule 100 mg PO TID 30 Days Qty: 90 5RF albuterol sulfate 90 mcg/actuation aerosol powdr breath activated 2 inh INH Q6H PRN (Reason: Shortness Of Breath Or Wheezing) Qty: 1 3RF torsemide 20 mg tablet 20 mg PO BID calcium carbonate [Calcium 600] 600 mg calcium (1,500 mg) tablet 1,200 mg PO TID Prolia 60 mg/mL syringe 60 mg subcut Q180D Qty: 1 1RF ipratropium-albuterol 0.5 mg-3 mg(2.5 mg base)/3 mL Solution For Nebulization 3 ml INHALATION Q4H PRN (Reason: Shortness Of Breath Or Wheezing) Creon 24,000-76,000 -120,000 unit Capsule,Delayed Release(Dr/Ec) 4 cap PO TID Patient Comments: before meals valacyclovir 500 mg tablet 500 mg PO QAM ropinirole 0.5 mg tablet 0.5 mg PO HS Rx Instructions: bedtime with food metolazone 2.5 mg Tablet 2.5 mg PO WK Rx Instructions: THURSDAYS, FOLLOWED IN 20 MINUTES BY DAILY TORSEMIDE. oxycodone-acetaminophen [Percocet] 5-325 mg Tablet 1 tab PO Q6H PRN (Reason: Pain) cyanocobalamin (vitamin B-12) [Vitamin B-12] 1,000 mcg Tablet 1,000 mcg PO DAILY nitroglycerin [Nitrostat] 0.4 mg Tablet, Sublingual 0.4 mg sublingual DIRECTED PRN (Reason: Chest Pain) Rx Instructions: 1 under tongue as needed for chest pain may repeat up to 3 times. [id number] Tablet 1 tab PO DAILY rosuvastatin 10 mg tablet 10 mg PO QAM fluticasone furoate-vilanterol [Breo Ellipta] 200-25 mcg/dose Blister With Device 1 inh INHALATION QAM Anti-Itch(diphenhyd) with Zinc 2-0.1 % Cream 1 applic EXT QID PRN (Reason: itching) Qty: 30 0RF topiramate 25 mg Tablet 25 mg PO HS Qty: 54 0RF Rx Instructions: 1 p.o. daily daily for 6 days and then 1 p.o. twice daily. potassium chloride 20 mEq Tablet,Er Particles/Crystals 20 meq PO TID Qty: 90 0RF risperidone 2 mg Tablet 2 mg PO HS cetirizine 10 mg tablet 10 mg PO DAILY PRN (Reason: Allergy Symptoms) duloxetine 60 mg Capsule,Delayed Release(Dr/Ec) 60 mg PO QAM Qty: 30 0RF Gemtesa 75 mg tablet 75 mg PO QAM lamotrigine 25 mg tablet See Rx Instructions .ROUTE .COMPLEX Rx Instructions: TAKES 25 MG QAM, THEN 50 MG QPM potassium citrate 15 mEq tablet extended release 15 meq PO BID Referrals Referrals: Petra Marx MD [Primary Care Provider] - Discharge Problem: Right lower lobe pneumonia Qualifiers: Pneumonia type: due to unspecified organism Qualified Code(s): J18.9 - Pneumonia, unspecified organism
[2023-11-29 20:48] LABS: Hematocrit (blood only) 42.4 % (37.0-47.0); Hemoglobin 13.8 g/dl (12.0-16.0); Mean Corpuscular Hemoglobin 27.7 pg (25.0-34.0); Mean Corpuscular Hgb Conc 32.5 g/dL (32.0-36.0); Mean Corpuscular Volume 85.1 fL (80.0-100.0); Mean Platelet Volume 10.3 fL (9.4-12.4); Platelet Count 260 K/uL (130-400); RDW Coefficient of Variation 15.5 % (11.5-14.5); RDW Standard Deviation 47.6 fL (36.4-46.3); Red Blood Count 4.98 M/uL (4.20-5.40); White Blood Count 8.34 K/ul (4.8-10.8)
[2023-11-29 20:56] LABS: Albumin Level 3.6 gm/dl (3.4-5.0); Bilirubin,Total 0.4 mg/dl (0.2-1.0); Calcium 8.6 mg/dl (8.6-10.3); Creatinine Clr Calc Pharmacy 33.2 ml/min; Est GFR (African American) 46.9 ml/min; Est GFR (Non-African American) 40.5 ml/min; Magnesium 2.2 mg/dl (1.7-2.4)
[2023-11-29 21:05] LABS: Base Excess VBG -0.8 mEq/L; HCO3 VBG 24 mmol/L; Oxygen Saturation VBG 76.6 %; PCO2 VBG 41 mmHg (38-50); PO2 VBG 46 mmHg; pH VBG 7.38 (7.36-7.41)
[2023-11-29 21:07] LABS: Troponin I High Sensitivity 133.7 pg/ml (0-14)
[2023-11-29 21:09] LABS: ALC (manual) 1.58 K/uL (1.2-3.4); ANC (manual) 5.75 K/uL (1.4-6.5); Lymphocytes # (manual) 1.58 K/uL (1.2-3.4); Lymphocytes % (manual) 19 %; Monocytes # (manual) 0.92 K/uL (0.11-0.59); Monocytes % (manual) 11 %; Myelocytes # (manual) 0.08 K/uL (0-0); Myelocytes % (manual) 1 %; Neutrophils # (manual) 5.75 K/uL (1.40-6.50); Neutrophils % (manual) 69 %
[2023-11-29 21:30] LABS: Adenovirus PCR Not Detected (NotDetected); Bordetella parapertussis PCR Not Detected (NotDetected); Bordetella pertussis PCR Not Detected (NotDetected); Chlamydia pneumoniae PCR Not Detected (NotDetected); Coronavirus 229E PCR Not Detected (NotDetected); Coronavirus CoV-2 (COVID19)PCR Not Detected (NotDetected); Coronavirus HKU1 PCR Not Detected (NotDetected); Coronavirus NL63 PCR Not Detected (NotDetected); Coronavirus OC43PCR DETECTED (NotDetected); Human Metapneumovirus PCR Not Detected (NotDetected); Influenza A PCR Not Detected (NotDetected); Influenza B PCR Not Detected (NotDetected); Mycoplasma pneumoniae PCR Not Detected (NotDetected); Parainfluenza Virus 1 PCR Not Detected (NotDetected); Parainfluenza Virus 2 PCR Not Detected (NotDetected); Parainfluenza Virus 3 PCR Not Detected (NotDetected); Parainfluenza Virus 4 PCR Not Detected (NotDetected); Respiratory Syncytial VirusPCR Not Detected (NotDetected); Rhinovirus/Enterovirus PCR Not Detected (NotDetected)
[2023-11-29] MEDS: ACETAMINOPHEN 1,000 MG/100 ML VIAL IV STA (21:35)
[2023-11-29] MEDS: SODIUM CHLORIDE 0.9% 500 ML IV SCH (21:39)
[2023-11-29] MEDS: PIPERACILLIN/TAZOBACTAM 4.5 GM/100 ML BAG IV STA (21:41)
[2023-11-29] MEDS: ALBUT/IPRATROP 3MG/0.5MG NEB 3 ML VIAL NEB STA (21:44)
[2023-11-29 22:08] LABS: Partial Thromboplastin Ratio 1.3; Partial Thromboplastin Time 38 Seconds (21-31)
[2023-11-29 23:21] LABS: Troponin I High Sensitivity 136.2 pg/ml (0-14)
[2023-11-29] MEDS: POTASSIUM CHLORIDE / WTR 10 MEQ/100 ML PLCT IV SCH (23:25)
[2023-11-30 00:20] LABS: Base Excess ABG -1.1 mEq/L (-9-1.8); HCO3 ABG 24 mmol/L (19-24); Oxygen Saturation ABG 95.5 % (90-95); PCO2 ABG 38 mmHg (35-46); PO2 ABG 73 mmHg (80-95)
[2023-11-30 00:25] LABS: Allen Test Pos (Pos)
--- NOTE | 2023-11-30 00:54 | CT Scan Report ---
Exam(s): CT HEAD Without Contrast EXAM: CT Head Without Intravenous Contrast CLINICAL HISTORY: Reason for exam: found down. TECHNIQUE: Axial computed tomography images of the head/brain without intravenous contrast. CTDI is 37.69 mGy and DLP is 624.41 mGy-cm. Automated exposure control was utilized for the study. A dose lowering technique was utilized adhering to the principles of ALARA. COMPARISON: Comparison made to prior brain MRI from November 02, 2023. FINDINGS: Brain: Unremarkable. No hemorrhage. No significant white matter disease. No edema. Ventricles: Mild ventriculomegaly.. Bones/joints: Unremarkable. No acute fracture. Soft tissues: Bilateral lens replacements. Sinuses: Chronic maxillary and ethmoid sinusitis with small air-fluid level in the left maxillary sinus. Status post endoscopic sinus surgery.. No acute sinusitis. Mastoid air cells: Unremarkable as visualized. No mastoid effusion. IMPRESSION: No evidence of acute intracranial pathology. Electronically signed by: Janis Roper MD 11/30/23 00:53 AM
--- NOTE | 2023-11-30 00:58 | History & Physical Report ---
Date of Service November 30, 2023 Assessment & Plan (1) Encephalopathy: Plan: Multifactorial: Hypoxemic respiratory failure secondary to COPD/ILD exacerbation secondary to HCAP/coronavirus OC 43 pneumonia/ possible aspiration pneumonia ? Possible UTI, hx recurrent UTIs (ESBL E. coli infection) Multiple home neuropsychotropic, narcotic medications contributory Recurrent falls likely secondary to orthostasis BP repeatedly found to be low at home and inpatient on review of records. Rule out pacemaker dysfunction, hx sinus node dysfunction sp PPM Traumatic rhabdomyolysis secondary to fall chronic diastolic heart failure, patient on the dry side hx pulmonary hypertension/ILD/LARRY (? BiPAP compliance), CRI, creatinine at baseline hx gastric bypass chronic anemia, hemoglobin better than baseline Hypothyroidism, euthyroid as of last month's TSH hypokalemia secondary to diuretic Rx/diarrheal illness rule out C. difficile given recent antibiotic Rx Possible functional disability given recurrent admissions/compliance issues PCU Supplemental O2 Zosyn for aspiration pneumonia, and UTI Nebs RTC, steroid course for COPD exacerbation Narcan trial given oxycodone Rx at home Appropriate to hold neuropsychotropic/narcotic meds for for now given sedation /confusion. Psych consult re: medication management (multiple neuropsychotropic medications predisposing to encephalopathy in an elderly patient) Initiate Midodrine for orthostatic hypotension Pacemaker interrogation May need Cardiology input pending results (Patient known to [facility] Follow CPK response to IVF Hold home diuretic for now until patient euvolemic Replace electrolytes Stool C. difficile PT OT eval once medically stable DVT prophylaxis. Heparin subcu Full code Patient requesting for sister to be given periodic updates regarding care. Ms. Ivonne Martinez, contact #[phone]. Total critical care time was 40 minutes. Text document was generated using ilab voice recognition software. It may contain grammatical or spelling errors. Kindly contact undersigned for clarification of any documentation item in question. History of Present Illness Chief Complaint: Fall Primary Care Provider: Petra Marx MD History obtained from patient and records. Limited history from patient secondary to lethargic state. Medical history significant for chronic diastolic heart failure (EF 55 to 60%, TTE 2022), sinus node dysfunction sp PPM, asthma/COPD/ILD, LARRY, pulmonary hypertension, CRI (baseline creatinine 1.3), history of gastric bypass, hyperparathyroidism as per records, hypothyroidism, ankylosing spondylitis as per records, chronic anemia (baseline hemoglobin of 11), recurrent UTIs (ESBL E. coli infection), urolithiasis, history pancreatic insufficiency/malabsorption as per records, mood/anxiety disorder, chronic pain/neuropathy. Recent confinement last month for chronic headache. Patient with diarrhea symptoms last week as per records. Outpatient stool testing recommended by provider given antibiotic Rx following recent dental procedure. Few days history of cough symptoms productive of junky sputum as per patient. Admits to coughing with meals/water intake if not careful. Denies chest pain, admits to SOB. Patient found on the ground at apartment yesterday. Patient confused as per documentation. Patient thinks she may have passed out. Patient denies abdominal pain/flank pain. Noted to be hypoxemic, O2 sats 80s. Lowest SBP of 80s noted at the ER. 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 Allergies Allergy/AdvReac Type Severity Reaction Status Date / Time bethanechol Allergy Intermediate RASH, Verified 11/29/23 20:43 "FEELS FUNNY" Cephalosporins Allergy Intermediate RASH, Verified 11/29/23 20:43 DIARRHEA levofloxacin Allergy Intermediate RASH,TURNED Verified 11/29/23 20:43 RED Sulfa (Sulfonamide Allergy Intermediate Generalized Verified 11/29/23 20:43 Antibiotics) Rash ertapenem Allergy Mild RASH Verified 11/29/23 20:43 atropine Allergy Unknown ON [facility] MED Verified 11/29/23 20:43 LIST clindamycin Allergy Unknown Unknown Verified 11/29/23 20:43 dipyridamole Allergy Unknown PERSANTINE--ON Verified 11/29/23 20:43 [facility] MED LIST droperidol Allergy Unknown Unknown Verified 11/29/23 20:43 meperidine [From Demerol] Allergy Unknown ? ALLERGY Verified 11/29/23 20:43 ON [facility] MED LIST promethazine Allergy Unknown UNKNOWN Verified 11/29/23 20:43 tobramycin Allergy Unknown UNKNOWN Verified 11/29/23 20:43 aspirin AdvReac Severe BLEEDING Verified 11/29/23 20:43 doxycycline AdvReac Severe severe Verified 11/29/23 20:43 Diarrhea, nausea metolazone AdvReac Severe ELECTROLYTE Verified 11/29/23 20:43 ISSUES--HYPOKALEMIA bupropion AdvReac Intermediate NERVOUS Verified 11/29/23 20:43 REACTION cephalexin AdvReac Intermediate GI SYMPTOMS Verified 11/29/23 20:43 morphine AdvReac Intermediate NERVOUS Verified 11/29/23 20:43 REACTION TO IT nitrofurantoin AdvReac Intermediate Vomiting Verified 11/29/23 20:43 [From Macrobid] prochlorperazine AdvReac Intermediate NERVOUS Verified 11/29/23 20:43 REACTION tedizolid AdvReac Intermediate GI SYMPTOMS Verified 11/29/23 20:43 venlafaxine [From Effexor] AdvReac Intermediate NERVOUS Verified 11/29/23 20:43 REACTION lamotrigine AdvReac Unknown tremors Verified 11/29/23 20:43 Home Medications Medication Instructions Recorded Confirmed Type colesevelam 625 mg tablet (WelChol) 625 mg PO TID 06/17/18 11/29/23 History montelukast 10 mg tablet 10 mg PO HS 06/17/18 11/29/23 History (Singulair) ipratropium 0.5 mg-albuterol 3 mg 3 ml inhalation Q4H PRN Shortness 05/05/19 11/29/23 History (2.5 mg base)/3 mL nebulization Of Breath Or Wheezing soln lnsyfr-kmoikkts-sqxdhwj 4 cap PO TID 05/05/19 11/29/23 History 24,000-76,000-120,000 unit capsule,delayed rel (Creon) omeprazole magnesium 20 mg 20 mg PO BID 05/17/19 11/29/23 History tablet,delayed release (Prilosec OTC) risperidone 2 mg tablet 2 mg PO HS 02/27/21 11/29/23 History metolazone 2.5 mg tablet 2.5 mg PO WK 11/15/22 11/29/23 History oxycodone-acetaminophen 5 mg-325 1 tab PO Q6H PRN Pain 11/15/22 11/29/23 History mg tablet (Percocet) ropinirole 0.5 mg tablet 0.5 mg PO HS 11/15/22 11/29/23 History valacyclovir 500 mg tablet 500 mg PO QAM 11/15/22 11/29/23 History calcitriol 0.5 mcg capsule 0.5 mcg PO BID #60 caps 12/21/22 11/29/23 Rx albuterol sulfate 90 mcg/actuation 2 inh inhalation Q6H PRN Shortness 02/03/23 11/29/23 Rx breath activated powder inhaler Of Breath Or Wheezing #1 ea levothyroxine 88 mcg tablet 88 mcg PO QAM #30 tabs 05/21/23 11/29/23 Rx cyanocobalamin (vitamin B-12) 1,000 mcg PO DAILY 05/24/23 11/29/23 History 1,000 mcg tablet (Vitamin B-12) nitroglycerin 0.4 mg sublingual 0.4 mg sublingual DIRECTED PRN 05/24/23 11/29/23 History tablet (Nitrostat) Chest Pain cetirizine 10 mg tablet 10 mg PO DAILY PRN Allergy Symptoms 05/29/23 11/29/23 History duloxetine 60 mg capsule,delayed 60 mg PO QAM #30 caps 06/04/23 11/29/23 Rx release torsemide 20 mg tablet 20 mg PO BID 06/24/23 11/29/23 History calcium carbonate 600 mg calcium 1,200 mg PO TID 07/22/23 11/29/23 History (1,500 mg) tablet (Calcium) denosumab 60 mg/mL subcutaneous 60 mg subcut Q180D #1 mL 07/22/23 11/29/23 Rx syringe (Prolia) fluticasone furoate 200 1 inh inhalation QAM 10/30/23 11/29/23 History mcg-vilanterol 25 mcg/dose inhalation powder (Breo Ellipta) qpblrkzewyjn-cfkjfkzp-xsscuz tablet 1 tab PO DAILY 10/30/23 11/29/23 History rosuvastatin 10 mg tablet 10 mg PO QAM 10/30/23 11/29/23 History diphenhydramine-zinc acetate 2 1 applic EXT QID PRN itching #30 11/04/23 11/29/23 Rx %-0.1 % topical cream (Anti-Itch grams (diphenhydramine) with Zinc) potassium chloride 20 mEq 20 meq PO TID #90 tabs 11/04/23 11/29/23 Rx tablet,extended release(part/cryst) topiramate 25 mg tablet 25 mg PO HS #54 tabs 11/04/23 11/29/23 Rx vibegron 75 mg tablet (Gemtesa) 75 mg PO QAM 11/06/23 11/29/23 History pregabalin 100 mg capsule 100 mg PO TID 30 days #90 caps 11/09/23 11/29/23 Rx lamotrigine 25 mg tablet See Rx Instructions .Route .COMPLEX 11/29/23 11/29/23 History potassium citrate 15 mEq (1,620 15 meq PO BID 11/29/23 11/29/23 History mg) tablet,extended release Past Med/Surg History Medical History Difficulty swallowing "trouble swallowing pills" Poor historian Neuropathy Recurrent major depression in remission History of DVT (deep vein thrombosis) remote hx, unknown etiology, Pacemaker Med[employer], implanted 12/2022 (bradycardia) > pt does not know when last checked Right rotator cuff tear Bronchiectasis pt unaware ILD (interstitial lung disease) Osteoporosis Nocturnal hypoxemia Osteoarthritis of left knee Kidney stones LARRY treated with BiPAP Junctional bradycardia Hypothyroidism Secondary hyperparathyroidism Pulmonary hypertension mild per 07/[address] report Atherosclerosis of both lower extremities Chronic kidney disease stage 3b GERD without esophagitis COPD (chronic obstructive pulmonary disease) "Well controlled" History of anemia Lumbar transverse process fracture Pt reports lower back detioriating - can't lie flat/sleep on a chair Pulmonary nodule seen on imaging study Reactive hypoglycemia Vitamin D deficiency Wrist injury Scar tissue surrounding remote wrist ORIF several years ago resulting in intermittent inflammation per pt Bilateral nephrolithiasis H/O concussion Remote hx "a long time ago" Incisional hernia Abdominal (from multiple surgeries/feeding tube) Obesity Sepsis 05/2020 @ [facility], urosepsis 2/2 obstructing renal stone, S/P cysto/stent and ESWL Chronic urinary tract infection recent hospitalization for this at [facility] DC'ed 11/05/23 > pt reports she is still very fatigued Sleep apnea complex sleep apnea, BIPAP (non-compliant) Hyperlipidemia per records Chronic venous insufficiency Chronic sinusitis Pancreatic insufficiency chronic pancreatitis MRSA (methicillin resistant staph aureus) culture positive Hx (Left wrist) Had 3 nasal swab and all negative (through [facility] per pt) Port-A-Cath in place right side due to poor vascular access Urinary leakage PUD (peptic ulcer disease) Had feeding tube for 28 years (has been removed for 11 years) Depression Asthma Peripheral neuropathy Lumbar stenosis Chronic diastolic (congestive) heart failure Follows with [facility] [place] cardiology Short bowel syndrome PVC (premature ventricular contraction) Pernicious anemia (08/08/13) Surgical History History of esophageal dilatation History of cystoscopy multiple H/O shoulder surgery RT arthroscopy 05/28/2021: LMA#4 atraumatic x 1 + PNB. Anesthesia postop progress note: "Pt denies SOB at this time. Block is functioning well. Vital signs stable and appropriate. Oxygenating well considering block placement and her comorbidities. Plan to discharge home with IS." S/P right rotator cuff repair S/P ureteral stent placement Status post laser lithotripsy of ureteral calculus History of prior ablation treatment Right LE in January 2020 and left LE 04/18/20 History of partial gastrectomy History of sinus surgery History of tonsillectomy and adenoidectomy History of total abdominal hysterectomy and bilateral salpingo-oophorectomy History of cholecystectomy History of appendectomy History of open reduction and internal fixation (ORIF) procedure left wrist + manipulation (01/2018) and I&D (10/2019) History of joint replacement Rt thumb History of knee replacement procedure of right knee History of esophagogastroduodenoscopy (EGD) History of colonoscopy History of gastrointestinal surgery multiple History of cardiac cath 08/2019 ([facility])- essentially normal coronary arteries angiographically, no stents Family History Mother Family history of diabetes mellitus Sister Family history of diabetes mellitus Family history of breast cancer Father Esophageal cancer Other Family history non-contributory No family history of adverse response to anesthesia Social History Smoking Status: Never smoker Second Hand Exposure: No; Do You Dip or Chew Tobacco: No; Tobacco Cessation Education Requested by Patient: No Hx Alcohol Use: Yes Alcohol type: beer Hx Substance Use: No Preferred Language: [place]ican Communication Ability: Effective Visual Impairment: No Limitations Air Compressor Operator Required: No Beliefs That Will Affect Care: None marital status: Single Current Living Situation: Personal Care Facility Current Living Situation Comment: apartment at [facility] in [place]/ had aid How many Children do You have: 0 Feels Safe at Home: Yes Safety Concerns: Feels Safe At This Time Assistive Devices: Denture - Upper, Denture - Lower, Glasses and Walker Review of Systems Review of Systems: Could not be reliably obtained secondary to lethargy Physical Exam Physical Exam: GENERAL: Lethargic, obese, no respiratory distress SKIN: Normal color, warm HEENT: pink palpebral conjunctivae, no ptosis, dry buccal mucosa, nasal cannula in place NECK : Supple, short, no tenderness CHEST : Decreased breath sounds, occasional expiratory wheezes, no tenderness BACK : Mid back tenderness HEART :RRR, systolic murmur ABDOMEN: Some distention, no tenderness EXTREMITIES : Bilateral LE swelling, no LE tenderness NEUROLOGIC : Lethargic, no facial asymmetry, gait and stance not assessed Results & Data Results & Data Vital Signs (Past 12 Hours) Vital Signs Temp Pulse Resp BP Pulse Ox O2 Del Method O2 Flow Rate 11/30/23 00:00 83 24 91/49 L 92 11/29/23 23:30 84 29 H 99/58 L 92 11/29/23 23:00 86 26 H 96/51 L 92 11/29/23 22:30 86 23 90/56 L 95 11/29/23 22:00 82 25 H 103/53 L 96 11/29/23 21:30 81 24 107/57 L 95 Oxymask 3 11/29/23 21:03 83 18 113/62 94 3 11/29/23 20:30 82 22 100/63 94 Oxymask 3 11/29/23 20:01 37.4 C 11/29/23 20:01 37.4 C 86 24 103/61 86 L Room Air 11/29/23 20:00 83 24 107/64 97 Oxymask 3 Laboratory Results Laboratory Results WBC 8.34 K/ul (4.8-10.8) 11/29/23 19:55 RBC 4.98 M/uL (4.20-5.40) 11/29/23 19:55 Hgb 13.8 g/dl (12.0-16.0) 11/29/23 19:55 Hct 42.4 % (37.0-47.0) 11/29/23 19:55 MCV 85.1 fL (80.0-100.0) 11/29/23 19:55 MCH 27.7 pg (25.0-34.0) 11/29/23 19:55 MCHC 32.5 g/dL (32.0-36.0) 11/29/23 19:55 RDW Std Deviation 47.6 fL (36.4-46.3) H 11/29/23 19:55 RDW Coeff of David 15.5 % (11.5-14.5) H 11/29/23 19:55 Plt Count 260 K/uL (130-400) 11/29/23 19:55 MPV 10.3 fL (9.4-12.4) 11/29/23 19:55 Neutrophils % (Manual) 69 % 11/29/23 19:55 Lymphocytes % (Manual) 19 % 11/29/23 19:55 Monocytes % (Manual) 11 % 11/29/23 19:55 Myelocytes % (Man) 1 % 11/29/23 19:55 Neutrophils # (Manual) 5.75 K/uL (1.40-6.50) 11/29/23 19:55 Total Absolute Neuts 5.75 K/uL (1.4-6.5) 11/29/23 19:55 Lymphocytes # (Manual) 1.58 K/uL (1.2-3.4) 11/29/23 19:55 Total Abs Lymphocytes 1.58 K/uL (1.2-3.4) 11/29/23 19:55 Monocytes # (Manual) 0.92 K/uL (0.11-0.59) H 11/29/23 19:55 Myelocytes # (Manual) 0.08 K/uL (0-0) H 11/29/23 19:55 APTT 38 Seconds (21-31) H 11/29/23 19:55 PTT Ratio 1.3 11/29/23 19:55 ABG pH 7.40 (7.35-7.45) 11/29/23 23:56 ABG pCO2 38 mmHg (35-46) 11/29/23 23:56 ABG pO2 73 mmHg (80-95) L 11/29/23 23:56 ABG HCO3 24 mmol/L (19-24) 11/29/23 23:56 ABG O2 Saturation 95.5 % (90-95) H 11/29/23 23:56 ABG Base Excess -1.1 mEq/L (-9-1.8) 11/29/23 23:56 Ahsan Test Pos (Pos) 11/29/23 23:56 VBG pH 7.38 (7.36-7.41) 11/29/23 20:53 VBG pCO2 41 mmHg (38-50) 11/29/23 20:53 VBG pO2 46 mmHg 11/29/23 20:53 VBG HCO3 24 mmol/L 11/29/23 20:53 VBG O2 Saturation 76.6 % 11/29/23 20:53 VBG Base Excess -0.8 mEq/L 11/29/23 20:53 Oxygen Given 3L 11/29/23 23:56 Sodium 145 mmol/L (136-145) 11/29/23 19:55 Potassium 3.0 mmol/L (3.5-5.1) L 11/29/23 19:55 Chloride 110 mmol/L (98-107) H 11/29/23 19:55 Carbon Dioxide 23 mmol/L (21-32) 11/29/23 19:55 Anion Gap 12 (3-11) H 11/29/23 19:55 BUN 33 mg/dl (6-23) H 11/29/23 19:55 Creatinine 1.32 mg/dl (0.6-1.2) H 11/29/23 19:55 Est Cr Clr Drug Dosing 33.2 ml/min 11/29/23 19:55 Est GFR ( Amer) 46.9 ml/min 11/29/23 19:55 Est GFR (Non-Af Amer) 40.5 ml/min 11/29/23 19:55 BUN/Creatinine Ratio 25.0 (10-20) H 11/29/23 19:55 Glucose 140 mg/dl (70-99(Fasting)) H 11/29/23 19:55 Lactate 1.2 mmol/L (0.4-2.0) 11/29/23 20:53 Calcium 8.6 mg/dl (8.6-10.3) 11/29/23 19:55 Magnesium 2.2 mg/dl (1.7-2.4) 11/29/23 19:55 Total Bilirubin 0.4 mg/dl (0.2-1.0) 11/29/23 19:55 Direct Bilirubin 0.0 mg/dl (0-0.2) 11/29/23 19:55 AST 41 U/L (13-39) H 11/29/23 19:55 ALT 14 U/L (7-52) 11/29/23 19:55 Alkaline Phosphatase 67 U/L (34-104) 11/29/23 19:55 Ammonia 25.0 umol/L (18-72) 11/29/23 23:25 Total Creatine Kinase 1131 U/L (26-192) H 11/29/23 22:25 Total Creatine Kinase Cancelled 11/29/23 22:25 Troponin I High Sens 136.2 pg/ml (0-14) H* 11/29/23 22:25 Troponin I High Sens Cancelled 11/29/23 22:25 B-Natriuretic Peptide 222 pg/ml (0-100) H 11/29/23 22:25 Total Protein 7.0 gm/dl (6.0-8.3) 11/29/23 19:55 Albumin 3.6 gm/dl (3.4-5.0) 11/29/23 19:55 Procalcitonin 12.90 ng/ml (0-0.5) H 11/29/23 19:55 Nasal Screen MRSA (PCR) Positive (Negative) A 11/29/23 20:53 Adenovirus (PCR) Not Detected (NotDetected) 11/29/23 19:40 B. pertussis DNA (PCR) Not Detected (NotDetected) 11/29/23 19:40 B.parapertussis DNA PCR Not Detected (NotDetected) 11/29/23 19:40 C. pneumoniae DNA (PCR) Not Detected (NotDetected) 11/29/23 19:40 Coronavirus OC43 (PCR) DETECTED (NotDetected) A 11/29/23 19:40 Coronavirus HKU1 (PCR) Not Detected (NotDetected) 11/29/23 19:40 Coronavirus 229E (PCR) Not Detected (NotDetected) 11/29/23 19:40 SARS-CoV-2 (PCR) Not Detected (NotDetected) 11/29/23 19:40 Coronavirus NL63 (PCR) Not Detected (NotDetected) 11/29/23 19:40 Human Metapneumovir PCR Not Detected (NotDetected) 02/25/24 19:40 Influenza Type A (PCR) Not Detected (NotDetected) 11/29/23 19:40 Influenza Type B (PCR) Not Detected (NotDetected) 11/29/23 19:40 M. pneumoniae (PCR) Not Detected (NotDetected) 11/29/23 19:40 Parainfluenza 1 (PCR) Not Detected (NotDetected) 11/29/23 19:40 Parainfluenza 2 (PCR) Not Detected (NotDetected) 11/29/23 19:40 Parainfluenza 3 (PCR) Not Detected (NotDetected) 11/29/23 19:40 Parainfluenza 4 (PCR) Not Detected (NotDetected) 11/29/23 19:40 RSV (PCR) Not Detected (NotDetected) 11/29/23 19:40 Entero/Rhino (PCR) Not Detected (NotDetected) 11/29/23 19:[address] 11/29/23 20:26 Exam(s): CT HEAD Without Contrast EXAM: CT Head Without Intravenous Contrast CLINICAL HISTORY: Reason for exam: found down. TECHNIQUE: Axial computed tomography images of the head/brain without intravenous contrast. CTDI is 37.69 mGy and DLP is 624.41 mGy-cm. Automated exposure control was utilized for the study. A dose lowering technique was utilized adhering to the principles of ALARA. COMPARISON: Comparison made to prior brain MRI from November 02, 2023. FINDINGS: Brain: Unremarkable. No hemorrhage. No significant white matter disease. No edema. Ventricles: Mild ventriculomegaly.. Bones/joints: Unremarkable. No acute fracture. Soft tissues: Bilateral lens replacements. Sinuses: Chronic maxillary and ethmoid sinusitis with small air-fluid level in the left maxillary sinus. Status post endoscopic sinus surgery.. No acute sinusitis. Mastoid air cells: Unremarkable as visualized. No mastoid effusion. IMPRESSION: No evidence of acute intracranial pathology. Electronically signed by: Janis Roper MD 11/30/23 00:[address] chest: Consolidations in bilateral lung bases along the bronchovascular pathways most concerning for an infectious etiology. Diagnostic Findings EKG as per my interpretation :Rate 90, NSR, LAD, LAFB, LVH, diffuse T wave abnormalities
[2023-11-30 01:18] LABS: Appearance Urine Cloudy (Clear); Bilirubin Urine Negative (Negative); Blood Urine 3+ (Negative); Color Urine Dark Yellow; Epithelial Cell Urine Auto >30 /lpf (0-5); Glucose Urine UA Negative (Negative); Ketones Urine Trace (Negative); Leukocyte Esterase Urine 1+ (Negative); Nitrite Urine Negative (Negative); Protein Urine 2+ (Negative); Urobilinogen Urine Negative (Negative); pH Urine 5.5 (4.5-7.5)
[2023-11-30 01:29] LABS: Bacteria Urine Automated 1+ (Negative)
[2023-11-30] MEDS: ALBUMIN 25% 25 GM/100 ML VIAL IV ONE (01:41)
[2023-11-30 01:55] LABS: Amphetamines+Metham, Urine Neg (Neg); Barbiturates, Urine Neg (Neg); Benzodiazepine, Urine Neg (Neg); Cocaine, Urine Neg (Neg); MDMA (Ecstacy), Urine Neg (Neg); Marijuana, Urine Neg (Neg); Methadone, Urine Neg (Neg); Opiate, Urine Neg (Neg); Phencyclidine, Urine Neg (Neg)
[2023-11-30] MEDS: NALOXONE HCL 0.4 MG/1 ML VIAL/CARP IV STA (02:05)
[2023-11-30] MEDS: methylPREDNISolone 20 MG in SYRINGE 0 ML IV STA (02:17)
--- NOTE | 2023-11-30 02:38 | CT Scan Report ---
Exam(s): CT CHEST Without Contrast EXAM: CT Chest Without Intravenous Contrast CLINICAL HISTORY: Reason for exam: low o2, cough. TECHNIQUE: Axial computed tomography images of the chest without intravenous contrast. Automated exposure control was utilized for the study. A dose lowering technique was utilized adhering to the principles of ALARA. COMPARISON: 03/27/2023 FINDINGS: Lungs: Consolidations in bilateral lung bases along the bronchovascular pathways most concerning for an infectious etiology. No mass. Pleural space: Unremarkable. No pneumothorax. No significant effusion. Heart: Mild cardiomegaly. No significant pericardial effusion. No significant coronary artery calcifications. Bones/joints: Unremarkable. No acute fracture. No dislocation. Soft tissues: Unremarkable. Vasculature: Unremarkable. No thoracic aortic aneurysm. Lymph nodes: Unremarkable. No enlarged lymph nodes. IMPRESSION: Consolidations in bilateral lung bases along the bronchovascular pathways most concerning for an infectious etiology. Electronically signed by: Gordon Matthew M.D. 11/30/23 02:37 AM
[2023-11-30] MEDS: PIPERACILLIN/TAZOBACTAM 4.5 GM in DEXTROSE 5% MINI-B 100 ML IV SCH (04:13)
[2023-11-30 04:53] LABS: BUN Creatinine Ratio 29.4 (10-20); Calcium 8.1 mg/dl (8.6-10.3); Creatinine Clr Calc Pharmacy 32.2 ml/min; Est GFR (African American) 45.3 ml/min; Est GFR (Non-African American) 39.1 ml/min; Potassium 3.7 mmol/L (3.5-5.1)
[2023-11-30 05:46] LABS: Basophils # (auto) 0.02 K/uL (0.00-0.20); Basophils % (auto) 0.3 %; Dohle Bodies 2+; Hematocrit (blood only) 35.5 % (37.0-47.0); Hemoglobin 11.4 g/dl (12.0-16.0); Immature Granulocytes # (auto) 0.07 K/uL (0.01-0.20); Immature Granulocytes % (auto) 1.1 %; Lymphocytes # (auto) 0.85 K/uL (1.20-3.40); Mean Corpuscular Hemoglobin 27.5 pg (25.0-34.0); Mean Corpuscular Hgb Conc 32.1 g/dL (32.0-36.0); Mean Corpuscular Volume 85.7 fL (80.0-100.0); Mean Platelet Volume 10.3 fL (9.4-12.4); Monocytes # (auto) 0.48 K/uL (0.11-0.59); Monocytes % (auto) 7.4 %; Neutrophils # (auto) 5.11 K/uL (1.40-6.50); Neutrophils % (auto) 78.2 %; Platelet Count 218 K/uL (130-400); Polychromasia 1+; RDW Coefficient of Variation 15.7 % (11.5-14.5); RDW Standard Deviation 48.8 fL (36.4-46.3); Red Blood Count 4.14 M/uL (4.20-5.40); White Blood Count 6.53 K/ul (4.8-10.8)
[2023-11-30] MEDS: MIDODRINE HCL 2.5 MG TAB PO SCH (05:59)
--- NOTE | 2023-11-30 07:02 | XRay Report ---
SINGLE VIEW CHEST CLINICAL HISTORY: Atypical chest pain. FINDINGS: An AP, portable, upright chest radiograph is compared to study dated 10/30/2023 and correlat ed with chest CT dated 07/18/2021. A right internal jugular central venous infusion port is unchanged in position. The heart is enlarged noting atherosclerotic calcification of the thoracic aorta. The p ulmonary vasculature is noncongested. Chronic interstitial thickening is similar to previous. Airspac e consolidation is seen at both lung bases. No large pleural effusion or pneumothorax is identified. The bony thorax is grossly intact. Surgical clips project over the upper abdomen. IMPRESSION: 1. Cardiomegaly without radiographic evidence of congestive failure. 2. There is bibasilar consolidation. Correlate clinically for evidence of pneumonia/aspiration pneumo nitis. Radiographic follow-up to resolution is recommended. ACT 112: Negative or not required by law. Electronically signed by: Chinedu Hicks M.D. 11/30/2023 7:01 AM
[2023-11-30] MEDS ORDERED: ALBUMIN 25% 25 GM/100 ML VIAL IV SCH (08:00)
[2023-11-30] MEDS: LEVALBUTEROL 1.25 MG/3 ML NEB NEB SCH (08:17)
[2023-11-30] MEDS: IPRATROPIUM BROMIDE NEB SOLN 0.02% 0.5MG/2.5ML VIAL INH SCH (08:17)
[2023-11-30] MEDS: CYANOCOBALAMIN (B-12) 500 MCG TABLET PO SCH (08:20)
[2023-11-30] MEDS: valACYclovir HCL 500 MG TABLET PO SCH (08:20)
[2023-11-30] MEDS: FLUTICASONE/VILANTEROL 200/25MCG 14 PUFFS/INHALER INH SCH (08:20)
[2023-11-30] MEDS: HEPARIN SOD 5,000 UNIT/0.5 ML VIAL SQ SCH (08:20)
[2023-11-30] MEDS: VIBEGRON 75 MG TAB PO SCH (08:20)
[2023-11-30] MEDS: LEVOTHYROXINE SODIUM 88 MCG TABLET PO SCH (08:20)
[2023-11-30] MEDS: CEROVITE ADV FORMULA TAB PO SCH (08:20)
[2023-11-30] MEDS ORDERED: XOPENEX/ATROVENT 1.25mg/0.5MG NEB COMBO NEB SCH (09:00)
[2023-11-30] MEDS: SODIUM CHLOR 0.45% + 20MEQ KCL 20 MEQ/1,000 ML BAG IV SCH (09:27)
[2023-11-30] MEDS: ADVANCED PROBIOTIC 625 MG CAPSULE PO SCH (09:47)
--- NOTE | 2023-11-30 13:36 | Electrocardiogram Report ---
Test Reason : Blood Pressure : / mmHG Vent. Rate : 089 BPM Atrial Rate : 089 BPM P-R Int : 164 ms QRS Dur : 090 ms QT Int : 354 ms P-R-T Axes : 039 -27 020 degrees QTc Int : 430 ms Normal sinus rhythm Left axis deviation Left ventricular hypertrophy with repolarization abnormality ( R in aVL ) Abnormal ECG When compared with ECG of 31-OCT-2023 06:33, Vent. rate has increased BY 33 BPM Nonspecific T wave abnormality has replaced inverted T waves in Inferior leads Inverted T waves have replaced nonspecific T wave abnormality in Anterior leads Confirmed by Boby Nevarez ([id number]) on 11/30/2023 1:35:56 PM Referred By: REFERRED SELF Confirmed By:Boby Nevarez
--- NOTE | 2023-11-30 16:18 | Hospitalist Progress Note ---
Date of Service November 30, 2023 Assessment & Plan (1) Encephalopathy: Plan: Acute metabolic encephalopathy Multifactorial: Multifocal pneumonia, possible aspiration,UTI, Rhabdo Hypoxic respiratory failure COPD/ILD exacerbation secondary to HCAP/coronavirus OC43 UTI (H/O ESBL) --CT head:No evidence of acute intracranial pathology. --CT chest:Consolidations in bilateral lung bases along the bronchovascular pathways most concerning for an infectious etiology. -- BioFire positive for coronavirus OC43 --Normal ammonia --Elevated procalcitonin -- Blood culture pending --Urine culture pending -- Obtain stool studies if patient develops recurrence of diarrhea --Continue Zosyn Also on prednisone, Nebs Received IV fluids Advance diet as tolerated Continue home inhalers Traumatic rhabdomyolysis Secondary to fall CK 1283 Hold rosuvastatin Continue IV fluids Monitor CK Hypokalemia Replete electrolytes as needed Monitor Troponin elevation Likely due to Rhabdo, demand ischemia Monitor Recurrent falls likely secondary to orthostasis BP relatively low monitor on tele Started on midodrine H/O sinus node dysfunction sp PPM Pacemaker interrogation Chronic diastolic heart failure h/o Pulmonary hypertension Monitor volume status Hold diuretics on hold LARRY Noncompliant with BiPAP CKD III Cr at baseline Monitor renal function Avoid nephrotoxic agents as able Other chronic conditions: H/O gastric bypass chronic anemia, Hb at baseline Hypothyroidism--continue levothyroxine Possible functional disability given recurrent admissions/compliance issues DVT Px: Heparin SQ Code Status Full code Disposition PT OT prior to discharge Admission and Anticipated Discharge Date Admission Date: November 30, 2023 Subjective Patient is seen and examined at bedside Cough, dyspnea improved Admits to having poor appetite Diarrhea resolved Still has generalized weakness Denies any chest pain, nausea, vomiting, abdominal pain No other complaints Review of Systems Review of Systems: All systems reviewed & are unremarkable except as noted in Subjective Physical Exam Physical Exam: Physical Exam: Vitals signs as noted above General Appearance:Obese, no apparent distress Head: normocephalic, Atraumatic Eyes: normal inspection, EOMI Neck: supple, Trachea midline Respiratory/Chest: Decreased breath sounds, B/L crackles, No accessory muscle use Cardiovascular: S1, S2, + murmur Abdomen/GI:Soft, Non tender, Bowel sounds present Extremities/Musculoskeletal:normal inspection, Trace edema Neurologic/Psych:AAOX3, grossly no focal neurological deficits Skin: normal color, warm Results & Data Results & Data Vital Signs (Past 12 Hours) Vital Signs Temp Pulse Pulse Resp BP BP Pulse Ox 11/30/23 16:04 36.7 C 73 20 98/64 L 97 11/30/23 15:27 73 18 97 11/30/23 15:19 73 11/30/23 11:05 36.5 C 75 18 103/62 97 11/30/23 10:55 77 15 96 11/30/23 10:08 73 11/30/23 08:30 11/30/23 08:19 84 18 97 11/30/23 06:50 11/30/23 06:48 36.5 C 73 18 103/66 11/30/23 06:00 73 23 102/59 L 97 11/30/23 05:57 77 19 110/60 95 11/30/23 05:00 71 18 97/53 L 95 11/30/23 04:23 11/30/23 04:23 71 18 100/58 L 96 O2 Del Method O2 Flow Rate 11/30/23 16:04 Room Air 11/30/23 15:27 Nasal Cannula 2 11/30/23 15:19 11/30/23 11:05 Nasal Cannula 2 11/30/23 10:55 Nasal Cannula 2 11/30/23 10:08 11/30/23 08:30 Oxymask 3 11/30/23 08:19 Oxymask 3 11/30/23 06:50 Oxymask 3 11/30/23 06:48 Aerosol Mask 3 11/30/23 06:00 11/30/23 05:57 11/30/23 05:00 11/30/23 04:23 Oxymask 3 11/30/23 04:23 Oxymask 3 Laboratory Results Short CBC 11/29/23 11/30/23 Range/Units 19:55 03:56 WBC 8.34 6.53 (4.8-10.8) K/ul Hgb 13.8 11.4 L (12.0-16.0) g/dl Hct 42.4 35.5 L (37.0-47.0) % Plt Count 260 218 (130-400) K/uL BMP 11/29/23 11/30/23 19:55 03:56 Sodium 145 145 Potassium 3.0 L 3.7 D Chloride 110 H 112 H Carbon Dioxide 23 24 BUN 33 H 40 H Creatinine 1.32 H 1.36 H Glucose 140 H 119 H Calcium 8.6 8.1 L Cardiac Enzymes 11/29/23 11/29/23 11/30/23 Range/Units 22:25 22:25 03:56 Total Creatine Kinase Cancelled 1131 H 1283 H Liver Function 11/29/23 Range/Units 19:55 Total Bilirubin 0.4 (0.2-1.0) mg/dl Direct Bilirubin 0.0 (0-0.2) mg/dl AST 41 H (13-39) U/L ALT 14 (7-52) U/L Alkaline Phosphatase 67 (34-104) U/L Albumin 3.6 (3.4-5.0) gm/dl Urine 11/30/23 Range/Units 01:05 Urine Color Dark Yellow Urine Appearance Cloudy A (Clear) Urine pH 5.5 (4.5-7.5) Ur Specific [place] 1.020 (1.000-1.030) Urine Protein 2+ H (Negative) Urine Glucose (UA) Negative (Negative)
[2023-11-30] MEDS: ACETAMINOPHEN 325 MG TAB PO PRN (20:35)
[2023-12-01] MEDS: SIMETHICONE 80 MG CHEW PO ONE (06:13)
[2023-12-01 07:24] LABS: Hematocrit (blood only) 34.1 % (37.0-47.0); Hemoglobin 10.7 g/dl (12.0-16.0); Mean Corpuscular Hemoglobin 27.4 pg (25.0-34.0); Mean Corpuscular Hgb Conc 31.4 g/dL (32.0-36.0); Mean Corpuscular Volume 87.4 fL (80.0-100.0); Mean Platelet Volume 10.1 fL (9.4-12.4); Platelet Count 200 K/uL (130-400); RDW Coefficient of Variation 16.4 % (11.5-14.5); RDW Standard Deviation 52.5 fL (36.4-46.3); White Blood Count 5.09 K/ul (4.8-10.8)
[2023-12-01 07:48] LABS: BUN Creatinine Ratio 29.9 (10-20); Calcium 7.9 mg/dl (8.6-10.3); Creatinine Clr Calc Pharmacy 49.9 ml/min; Est GFR (African American) 77.7 ml/min; Magnesium 2.5 mg/dl (1.7-2.4); Potassium 3.7 mmol/L (3.5-5.1)
[2023-12-01] MEDS: predniSONE 20 MG TAB PO SCH (08:19)
[2023-12-01] MEDS: LACTATED RINGER'S 1,000 ML IV SCH (08:23)
[2023-12-01 11:29] LABS: Adenovirus F 40/41 PCR Not Detected (NotDetected); Astrovirus PCR Not Detected (NotDetected); Campylobacter PCR Not Detected (NotDetected); Cryptosporidium PCR Not Detected (NotDetected); Cyclospora cayetanensis PCR Not Detected (NotDetected); Entamoeba histolytica PCR Not Detected (NotDetected); Enteroaggregative E.coli(EAEC) Not Detected (NotDetected); Enteropathogenic E.coli (EPEC) Not Detected (NotDetected); Enterotoxigenic E.coli (ETEC) Not Detected (NotDetected); Giardia lamblia PCR Not Detected (NotDetected); Plesiomonas shigelloides PCR Not Detected (NotDetected); Rotavirus A PCR Not Detected (NotDetected); Salmonella PCR Not Detected (NotDetected); Sapovirus PCR Not Detected (NotDetected); Shiga-like Toxin E.coli (STEC) Not Detected (NotDetected); Shigella/Enteroinvasive E.coli Not Detected (NotDetected); Vibrio cholerae PCR Not Detected (NotDetected); Vibrio species PCR Not Detected (NotDetected); Yersinia enterocolitica PCR Not Detected (NotDetected)
[2023-12-01 11:35] LABS: Norovirus GI/GII PCR DETECTED (NotDetected)
[2023-12-01] MEDS ORDERED: LOPERAMIDE HCL 2 MG CAP PO PRN (13:09)
[2023-12-01] MEDS: ONDANSETRON INJ 2 MG/ML 2 ML VIAL IV PRN (13:23)
--- NOTE | 2023-12-01 17:18 | Hospitalist Progress Note ---
Date of Service December 01, 2023 Assessment & Plan (1) Encephalopathy: Plan: Acute metabolic encephalopathy Multifactorial: Multifocal pneumonia, possible aspiration,UTI, Rhabdo Hypoxic respiratory failure COPD/ILD exacerbation secondary to HCAP/coronavirus OC43 UTI (H/O ESBL) --CT head:No evidence of acute intracranial pathology. --CT chest:Consolidations in bilateral lung bases along the bronchovascular pathways most concerning for an infectious etiology. -- BioFire positive for coronavirus OC43 --Normal ammonia --Elevated procalcitonin -- Blood culture negative to date --Urine culture preliminary negative --Continue Zosyn Also on prednisone, Nebs Received IV fluids Advance diet as tolerated Continue home inhalers Transition to p.o. antibiotics as able Traumatic rhabdomyolysis Secondary to fall CK 1283>1037 Hold rosuvastatin Continue IV fluids Monitor CK Diarrhea Secondary to norovirus infection Stool negative for C. difficile Monitor volume status IV fluids as needed Hypokalemia Replete electrolytes as needed Monitor Troponin elevation Likely due to Rhabdo, demand ischemia Monitor Recurrent falls likely secondary to orthostasis BP relatively low monitor on tele Started on midodrine H/O sinus node dysfunction sp PPM Pacemaker interrogation Chronic diastolic heart failure h/o Pulmonary hypertension Monitor volume status Hold diuretics on hold LARRY Noncompliant with BiPAP CKD III Monitor renal function Avoid nephrotoxic agents as able Other chronic conditions: H/O gastric bypass chronic anemia, Hb at baseline Hypothyroidism--continue levothyroxine Possible functional disability given recurrent admissions/compliance issues DVT Px: Heparin SQ Code Status Full code Disposition PT OT prior to discharge Admission and Anticipated Discharge Date Admission Date: November 30, 2023 Subjective Patient is seen and examined at bedside Reports nausea but no vomiting today Also reports having diarrhea today Poor oral intake Reports loss of taste and smell Cough, dyspnea continues to improve Denies any chest pain, abdominal pain Review of Systems Review of Systems: All systems reviewed & are unremarkable except as noted in Subjective Physical Exam Physical Exam: Physical Exam: Vitals signs as noted above General Appearance:Obese, no apparent distress Head: normocephalic, Atraumatic Eyes: normal inspection, EOMI Neck: supple, Trachea midline Respiratory/Chest: Decreased breath sounds, B/L crackles, No accessory muscle use Cardiovascular: S1, S2, + murmur Abdomen/GI:Soft, Non tender, Bowel sounds present Extremities/Musculoskeletal:normal inspection, Trace edema Neurologic/Psych:AAOX3, grossly no focal neurological deficits Skin: normal color, warm Results & Data Results & Data Vital Signs (Past 12 Hours) Vital Signs Temp Pulse Pulse Resp BP BP Pulse Ox 12/01/23 15:20 37.0 C 100 H 18 111/67 92 12/01/23 15:17 90 12/01/23 14:21 84 18 91 12/01/23 11:15 36.6 C 86 17 120/75 99 12/01/23 11:08 79 16 97 12/01/23 09:39 64 12/01/23 08:30 12/01/23 07:53 36.6 C 73 18 113/71 98 12/01/23 07:44 16 98 O2 Del Method O2 Flow Rate 12/01/23 15:20 Room Air 12/01/23 15:17 12/01/23 14:21 Room Air 12/01/23 11:15 Nasal Cannula 2 12/01/23 11:08 Nasal Cannula 2 12/01/23 09:39 12/01/23 08:30 Nasal Cannula 2 12/01/23 07:53 Nasal Cannula 2 12/01/23 07:44 Nasal Cannula 2 Laboratory Results Short CBC 12/01/23 Range/Units 06:56 WBC 5.09 (4.8-10.8) K/ul Hgb 10.7 L (12.0-16.0) g/dl Hct 34.1 L (37.0-47.0) % Plt Count 200 (130-400) K/uL BMP 12/01/23 06:56 Sodium 144 Potassium 3.7 Chloride 114 H Carbon Dioxide 23 BUN 26 H Creatinine 0.87 D Glucose 110 H Calcium 7.9 L Cardiac Enzymes 12/01/23 Range/Units 06:56 Total Creatine Kinase 1037 H (26-192) U/L
[2023-12-01] MEDS: hydrOXYzine HCl 10 MG TAB PO PRN (23:49)
[2023-12-02 01:13] LABS: Influenza A virus by PCR Negative (Neg); Influenza B virus by PCR Negative (Neg); RSV by PCR Negative (Neg); SARS CoV2 RNA(COVID-19) Ceph NEGATIVE (Negative)
--- NOTE | 2023-12-02 02:05 | Communication Note ---
Date of Service: December 02, 2023
[2023-12-02] MEDS: ACETAMINOPHEN 1,000 MG/100 ML VIAL IV STA (02:18)
[2023-12-02] MEDS: hydrOXYzine HCl 25 MG TAB PO STA (02:21)
[2023-12-02] MEDS: TOPIRAMATE 25 MG TAB PO STA (02:22)
[2023-12-02] MEDS: risperiDONE 2 MG TABLET PO STA (02:22)
[2023-12-02] MEDS ORDERED: LOPERAMIDE HCL 2 MG CAP PO PRN (02:36)
--- NOTE | 2023-12-02 03:05 | CT Scan Report ---
Exam(s): CT ABDOMEN + PELVIS Without Contrast EXAM: CT Abdomen and Pelvis Without Intravenous Contrast CLINICAL HISTORY: abd pain. TECHNIQUE: Axial computed tomography images of the abdomen and pelvis without intravenous contrast. CTDI is 27.73 mGy and DLP is 1304.89 mGy-cm. Automated exposure control was utilized for the study. A dose lowering technique was utilized adhering to the principles of ALARA. COMPARISON: CT abdomen and pelvis without contrast dated 05/20/2023 FINDINGS: Lung bases: Diffuse coarse interstitial changes noted at the lung bases, new from the previous examination. New cylindrical bronchiectasis involving the inferior right middle lobe. No consolidation. ABDOMEN: Liver: Unremarkable. Gallbladder and bile ducts: The gallbladder is not clearly delineated and is presumed surgically absent. The common bile duct is stable to slightly decreased in size measuring 9 mm at the cheryl hepatis. Pancreas: The pancreas remains stable in appearance and is somewhat atrophic. No ductal dilation. Spleen: Unremarkable. No splenomegaly. Adrenals: Unremarkable. No mass. Kidneys and ureters: Similar atrophic and dysmorphic appearance of the right kidney with internal calcifications. Subcentimeter nonobstructive nephrolithiasis in the inferior pole of the normal appearing left kidney. No nephrolithiasis or hydronephrosis. Stomach and bowel: Stable postsurgical changes consistent with distal gastrectomy. No evidence for bowel obstruction. Evaluation the bowel mucosa is limited without contrast; however, no obvious asymmetry noted. Several of the small bowel loops remain immediately deep to the skin surface in the region of the patulous defect involving the ventral abdominal wall. PELVIS: Appendix: The appendix is not clearly delineated. No secondary findings to suggest acute appendicitis. Bladder: A Cam catheter is noted in the bladder. No bladder stones or bladder wall thickening. Reproductive: Status post hysterectomy. ABDOMEN and PELVIS: Intraperitoneal space: Unremarkable. No free air. No significant fluid collection. Bones/joints: No acute fracture. No dislocation. Soft tissues: The abnormal ventral abdominal wall is stable in appearance with absence of the ventral abdominal wall musculature and overlying soft tissues at the midline, stable. The bowel loops remain immediately deep to the skin surface. Vasculature: Unremarkable. No abdominal aortic aneurysm. Lymph nodes: Unremarkable. No enlarged lymph nodes. IMPRESSION: 1. Diffuse coarse interstitial changes noted at the lung bases, new from the previous examination. New cylindrical bronchiectasis involving the inferior right middle lobe. Findings are greater than expected for subsegmental atelectasis which raises the concern for subtle interstitial infection. 2. Stable postsurgical changes consistent with distal gastrectomy. No evidence for bowel obstruction. Evaluation the bowel mucosa is limited without contrast; however, no obvious asymmetry noted. Several of the small bowel loops remain immediately deep to the skin surface in the region of the patulous defect involving the ventral abdominal wall. No pneumatosis or pneumoperitoneum. Electronically signed by: Alfredo Aguilar MD 12/02/23 03:04 AM
[2023-12-02 08:20] LABS: Hemoglobin 11.1 g/dl (12.0-16.0); Mean Corpuscular Hgb Conc 32.6 g/dL (32.0-36.0); Mean Corpuscular Volume 85.6 fL (80.0-100.0); Mean Platelet Volume 9.7 fL (9.4-12.4); Platelet Count 232 K/uL (130-400); RDW Coefficient of Variation 16.5 % (11.5-14.5); RDW Standard Deviation 52.4 fL (36.4-46.3); Red Blood Count 3.97 M/uL (4.20-5.40); White Blood Count 5.17 K/ul (4.8-10.8)
[2023-12-02 08:37] LABS: BUN Creatinine Ratio 23.8 (10-20); Calcium 8.1 mg/dl (8.6-10.3); Creatinine Clr Calc Pharmacy 54.3 ml/min; Est GFR (Non-African American) 74.2 ml/min; Potassium 3.7 mmol/L (3.5-5.1)
--- NOTE | 2023-12-02 16:26 | Hospitalist Progress Note ---
Date of Service December 02, 2023 Assessment & Plan (1) Encephalopathy: Plan: Ms Braswell is a 73 year old woman with medical history significant for chronic diastolic heart failure (EF 55 to 60%, TTE 2022), sinus node dysfunction sp PPM, asthma/COPD/ILD, LARRY, pulmonary hypertension, CKDIII (baseline creatinine 1.3), history of gastric bypass, hyperparathyroidism as per records, hypothyroidism, ankylosing spondylitis as per records, chronic anemia (baseline hemoglobin of 11), recurrent UTIs (ESBL E. coli infection), urolithiasis, history pancreatic insufficiency/malabsorption, mood/anxiety disorder, chronic pain/neuropathy who is admitted for evaluation of encephalopathy. Patient was found down on 11/29 and brought to ED. Notable issue with 1 week of diarrhea preceding admission. Patient's encephalopathy appears resolved. Episode of tremulousness and anxiety in the evening. #Acute metabolic encephalopathy *resolved Multifactorial: Multifocal pneumonia, possible aspiration,UTI, Rhabdo Multiple viral infections on going, rhabdo CT with consolidations noted, improving with IVF and IV abx -Treat as follows #Acute hypoxic respiratory failure #COPD/ILD exacerbation secondary to HCAP/coronavirus OC43 #Recurrent UTI (H/O ESBL) --CT head:No evidence of acute intracranial pathology. --CT chest:Consolidations in bilateral lung bases along the bronchovascular pathways most concerning for an infectious etiology. -- BioFire positive for coronavirus OC43 --Normal ammonia --Elevated procalcitonin -- Blood culture negative to date --Urine culture NGTD --Continue Zosyn Continue on prednisone, EOT 12/04 Continue Nebs Advance diet Continue home inhalers Transition to p.o. antibiotics as able #Traumatic rhabdomyolysis #Mechanical fall CK 1283>1037>525 Discontinue IVF #Acute Diarrhea 2/2 Norovirus gastroenteritis Secondary to norovirus infection Stool negative for C. difficile Monitor volume status IV fluids as needed #Hypokalemia Replete electrolytes as needed Monitor #Troponin elevation resolved Likely due to Rhabdo, demand ischemia Monitor #Recurrent falls likely secondary to orthostasis BP relatively low monitor on tele Started on midodrine, new hold parameters (SBP >115) #sinus node dysfunction sp PPM Pacemaker interrogation #Chronic diastolic heart failure h/o Pulmonary hypertension Monitor volume status Hold diuretics on hold: metolazone 2.5mg weekly, torsemide 20mg BID #LARRY Noncompliant with BiPAP #CKD III Monitor renal function Avoid nephrotoxic agents as able Other chronic conditions: H/O gastric bypass chronic anemia, Hb at baseline Hypothyroidism--continue levothyroxine Possible functional disability given recurrent admissions/compliance issues DVT Px: Heparin SQ Code Status Full code Disposition PT OT rehab at [facility] Admission and Anticipated Discharge Date Admission Date: November 30, 2023 Subjective Patient in evaluated at bedside Reports feeling "alright" but notably upset over diarrhea; however, it is improving Notes that she does still take Lamictal and Risperdal at home. Patient states she doesn't take the topamax Physical Exam Constitutional: WD/WN, vitals as above Respiratory: normal respiratory effort, lungs clear to auscultation Gastrointestinal (Abdomen): normal bowel sounds, soft, nontender, no hepatosplenomegaly Results & Data Results & Data Vital Signs (Past 12 Hours) Vital Signs Temp Pulse Pulse Resp BP BP Pulse Ox 12/02/23 15:43 36.8 C 80 18 143/77 H 92 12/02/23 15:14 75 20 93 12/02/23 11:04 36.5 C 73 18 137/72 95 12/02/23 10:34 12/02/23 08:28 36.9 C 91 H 20 111/64 92 12/02/23 07:43 76 12/02/23 07:22 66 18 93 O2 Del Method 12/02/23 15:43 Room Air 12/02/23 15:14 Room Air 12/02/23 11:04 Room Air 12/02/23 10:34 Room Air 12/02/23 08:28 Room Air 12/02/23 07:43 12/02/23 07:22 Room Air Laboratory Results Short CBC 12/02/23 Range/Units 08:07 WBC 5.17 (4.8-10.8) K/ul Hgb 11.1 L (12.0-16.0) g/dl Hct 34.0 L (37.0-47.0) % Plt Count 232 (130-400) K/uL BMP 12/02/23 08:07 Sodium 148 H Potassium 3.7 Chloride 116 H Carbon Dioxide 21 BUN 19 Creatinine 0.80 Glucose 133 H Calcium 8.1 L Cardiac Enzymes 12/02/23 Range/Units 08:07 Total Creatine Kinase 525 H (26-192) U/L Medications Administered Home Medications Medication Instructions Recorded Confirmed Last Taken colesevelam 625 mg tablet (WelChol) 625 mg PO TID 06/17/18 11/29/23 11/29/23 08:00 montelukast 10 mg tablet 10 mg PO HS 06/17/18 11/29/23 11/28/23 (Singulair) ipratropium 0.5 mg-albuterol 3 mg 3 ml inhalation Q4H PRN Shortness 05/05/19 11/29/23 11/10/23 (2.5 mg base)/3 mL nebulization Of Breath Or Wheezing soln [id number]-[id number]-vkuhvmc 4 cap PO TID 05/05/19 11/29/23 11/29/23 08:00 24,000-76,000-120,000 unit capsule,delayed rel (Creon) omeprazole magnesium 20 mg 20 mg PO BID 05/17/19 11/29/23 11/29/23 08:00 tablet,delayed release (Prilosec OTC) metolazone 2.5 mg tablet 2.5 mg PO WK 11/15/22 11/29/23 11/26/23 oxycodone-acetaminophen 5 mg-325 1 tab PO Q6H PRN Pain 11/15/22 11/29/23 Unknown mg tablet (Percocet) ropinirole 0.5 mg tablet 0.5 mg PO HS 11/15/22 11/29/23 11/28/23 valacyclovir 500 mg tablet 500 mg PO QAM 11/15/22 11/29/23 11/29/23 calcitriol 0.5 mcg capsule 0.5 mcg PO BID #60 caps 12/21/22 11/29/23 11/29/23 08:00 albuterol sulfate 90 mcg/actuation 2 inh inhalation Q6H PRN Shortness 02/03/23 11/29/23 11/10/23 breath activated powder inhaler Of Breath Or Wheezing #1 ea levothyroxine 88 mcg tablet 88 mcg PO QAM #30 tabs 05/21/23 11/29/23 11/29/23 cyanocobalamin (vitamin B-12) 1,000 mcg PO DAILY 05/24/23 11/29/23 11/29/23 1,000 mcg tablet (Vitamin B-12) nitroglycerin 0.4 mg sublingual 0.4 mg sublingual DIRECTED PRN 05/24/23 11/29/23 Unknown tablet (Nitrostat) Chest Pain cetirizine 10 mg tablet 10 mg PO DAILY PRN Allergy Symptoms 05/29/23 11/29/23 10/30/23 torsemide 20 mg tablet 20 mg PO BID 06/24/23 11/29/23 11/29/23 08:00 calcium carbonate 600 mg calcium 1,200 mg PO TID 07/22/23 11/29/23 11/29/23 08:00 (1,500 mg) tablet (Calcium) denosumab 60 mg/mL subcutaneous 60 mg subcut Q180D #1 mL 07/22/23 11/29/23 08/11/23 syringe (Prolia) fluticasone furoate 200 1 inh inhalation QAM 10/30/23 11/29/23 11/29/23 mcg-vilanterol 25 mcg/dose inhalation powder (Breo Ellipta) [id number]-buqhhslh-[id number] tablet 1 tab PO DAILY 10/30/23 11/29/23 11/29/23 rosuvastatin 10 mg tablet 10 mg PO QAM 10/30/23 11/29/23 11/29/23 diphenhydramine-zinc acetate 2 1 applic EXT QID PRN itching #30 11/04/23 11/29/23 Unknown %-0.1 % topical cream (Anti-Itch grams (diphenhydramine) with Zinc) potassium chloride 20 mEq 20 meq PO TID #90 tabs 11/04/23 11/29/23 11/29/23 08:00 tablet,extended release(part/cryst) topiramate 25 mg tablet 25 mg PO HS #54 tabs 11/04/23 11/29/23 11/28/23 vibegron 75 mg tablet (Gemtesa) 75 mg PO QAM 11/06/23 11/29/23 11/29/23 pregabalin 100 mg capsule 100 mg PO TID 30 days #90 caps 11/09/23 11/29/23 11/29/23 08:00 lamotrigine 25 mg tablet See Rx Instructions .Route .COMPLEX 11/29/23 11/29/23 11/29/23 08:00 potassium citrate 15 mEq (1,620 15 meq PO BID 11/29/23 11/29/23 11/29/23 08:00 mg) tablet,extended release Active Medications Generic Name Dose Route Start Last Admin Trade Name Bj PRN Reason Stop Dose Admin Acetaminophen 650 mg 11/30/23 01:09 12/01/23 11:54 Acetaminophen 325 Mg Tab PO 12/30/23 01:08 650 mg Q4H PRN Administration Pain or Fever Cyanocobalamin 1,000 mcg 11/30/23 09:00 12/02/23 08:53 Cyanocobalamin (B-12) 500 Mcg Tablet PO 12/30/23 08:59 1,000 mcg DAILY CATE Administration Fluticasone/Vilanterol 1 puffs 11/30/23 09:00 12/02/23 08:53 Fluticasone/Vilanterol 200/25mcg 14 Puffs/Inhaler INH 12/30/23 08:59 1 puffs QAM CATE Administration Heparin Sodium (Porcine) 5,000 units 11/30/23 06:00 12/02/23 14:43 Heparin Sod 5,000 Unit/0.5 Ml Vial SQ 12/30/23 05:59 5,000 units Q8 CATE Administration Hydroxyzine HCl 10 mg 12/01/23 23:10 12/01/23 23:49 Hydroxyzine Hcl 10 Mg Tab PO 12/31/23 23:09 10 mg QID PRN Administration Anxiety Piperacillin Sod/Tazobactam 100 mls @ 25 mls/hr 11/30/23 04:00 12/02/23 16:34 Sod 4.5 gm/ Dextrose IV 12/07/23 03:59 Infused Q8H CATE Infusion Protocol Ipratropium Sodus 0.5 mg 11/30/23 07:00 12/02/23 14:56 Ipratropium Sodus Neb Soln 0.02% 0.5mg/2.5ml Vial INH 12/30/23 06:59 0.5 mg QIDR CATE Administration Lactobacillus Acidophilus 2 cap 11/30/23 09:00 12/02/23 08:54 Advanced Probiotic 1250 Mg Capsule PO 12/30/23 08:59 2 cap DAILY CATE Administration Levalbuterol HCl 1.25 mg 11/30/23 07:00 12/02/23 14:56 Levalbuterol 1.25 Mg/3 Ml Neb NEB 12/30/23 06:59 1.25 mg QIDR ACTE Administration Levothyroxine Sodium 88 mcg 11/30/23 06:30 12/02/23 05:03 Levothyroxine Sodium 88 Mcg Tablet PO 12/30/23 06:29 88 mcg DAILYBB CATE Administration Midodrine 2.5 mg 11/30/23 05:10 12/02/23 12:35 Midodrine Hcl 2.5 Mg Tab PO 12/30/23 05:09 2.5 mg TID@0800,1200,1700 CATE Administration Miscellaneous 1 each 11/30/23 08:00 12/02/23 16:04 Order Awaiting Action: Colesevelam [Welchol] 625 Mg Tablet N/A 12/30/23 07:59 Not Given QS [facility] Multivitamins/Minerals 1 tab 11/30/23 09:00 12/02/23 08:54 Cerovite Adv Formula Tab PO 12/30/23 08:59 1 tab DAILY CATE Administration Ondansetron HCl 4 mg 12/01/23 12:08 12/01/23 23:52 Ondansetron Inj 2 Mg/Ml 2 Ml Vial IV 12/31/23 12:07 4 mg Q6H PRN Administration Nausea And Vomiting Prednisone 40 mg 12/01/23 09:00 12/02/23 08:54 Prednisone 20 Mg Tab PO 12/05/23 08:59 40 mg DAILY CATE Administration Valacyclovir HCl 500 mg 11/30/23 09:00 12/02/23 08:55 Valacyclovir Hcl 500 Mg Tablet PO 12/30/23 08:59 500 mg QAM CATE Administration Vibegron 75 mg 11/30/23 09:00 12/02/23 08:55 Vibegron 75 Mg Tab PO 12/30/23 08:59 75 mg QAM CATE Administration
[2023-12-02] MEDS: lamoTRIgine 25 MG TAB PO SCH (20:42)
[2023-12-02] MEDS: risperiDONE 2 MG TABLET PO SCH (20:43)
[2023-12-03 08:13] LABS: Hematocrit (blood only) 35.3 % (37.0-47.0); Hemoglobin 11.6 g/dl (12.0-16.0); Mean Corpuscular Hgb Conc 32.9 g/dL (32.0-36.0); Mean Corpuscular Volume 85.3 fL (80.0-100.0); Mean Platelet Volume 9.7 fL (9.4-12.4); Platelet Count 250 K/uL (130-400); RDW Coefficient of Variation 16.5 % (11.5-14.5); RDW Standard Deviation 51.3 fL (36.4-46.3); Red Blood Count 4.14 M/uL (4.20-5.40); White Blood Count 8.95 K/ul (4.8-10.8)
[2023-12-03] MEDS: CETIRIZINE HCL 10 MG TABLET PO PRN (08:28)
[2023-12-03 08:43] LABS: BUN Creatinine Ratio 18.1 (10-20); Calcium 8.4 mg/dl (8.6-10.3); Creatinine Clr Calc Pharmacy 51.7 ml/min; Est GFR (African American) 82.2 ml/min; Est GFR (Non-African American) 70.9 ml/min; Potassium 3.2 mmol/L (3.5-5.1)
[2023-12-03 08:55] LABS: Magnesium 2.2 mg/dl (1.7-2.4); Phosphorus 1.3 mg/dl (2.5-4.9)
[2023-12-03] MEDS ORDERED: POTASSIUM PHOS 3 MMOL/1 ML INFUSION IV STA (11:25)
--- NOTE | 2023-12-03 11:31 | Hospitalist Progress Note ---
Date of Service December 03, 2023 Assessment & Plan (1) Encephalopathy: Plan: Ms Braswell is a 73 year old woman with medical history significant for chronic diastolic heart failure (EF 55 to 60%, TTE 2022), sinus node dysfunction sp PPM, asthma/COPD/ILD, LARRY, pulmonary hypertension, CKDIII (baseline creatinine 1.3), history of gastric bypass, hyperparathyroidism as per records, hypothyroidism, ankylosing spondylitis as per records, chronic anemia (baseline hemoglobin of 11), recurrent UTIs (ESBL E. coli infection), urolithiasis, history pancreatic insufficiency/malabsorption, mood/anxiety disorder, chronic pain/neuropathy who is admitted for evaluation of encephalopathy. Patient was found down on 11/29 and brought to ED. Notable issue with 1 week of diarrhea preceding admission. Patient's encephalopathy appears resolved. Episode of tremulousness and anxiety in the evening. #Hypernatremia -Poor PO intake and diarrhea, increased insensible losses -2.4L FWD, D5W for now -Encourage PO intake #Acute metabolic encephalopathy *resolved Multifactorial: Multifocal pneumonia, possible aspiration,UTI, Rhabdo Multiple viral infections on going, rhabdo CT with consolidations noted, improving with IVF and IV abx -Treat as follows #Acute hypoxic respiratory failure #COPD/ILD exacerbation secondary to HCAP/coronavirus OC43 #Recurrent UTI (H/O ESBL) --CT head:No evidence of acute intracranial pathology. --CT chest:Consolidations in bilateral lung bases along the bronchovascular pathways most concerning for an infectious etiology. -- BioFire positive for coronavirus OC43 --Normal ammonia --Elevated procalcitonin -- Blood culture negative to date --Urine culture NGTD --Discontinue Zosyn -MRSA +, sputum + staph -Infectious disease consult given MRSA nares + and staph in sputum Continue on prednisone, EOT 12/04 Continue Nebs Advance diet Continue home inhalers Transition to p.o. antibiotics as able #Traumatic rhabdomyolysis #Mechanical fall CK [id number] Discontinue IVF #Acute Diarrhea 2/2 Norovirus gastroenteritis Secondary to norovirus infection Stool negative for C. difficile Monitor volume status IV fluids as needed #Hypokalemia Replete electrolytes as needed Monitor #Troponin elevation resolved Likely due to Rhabdo, demand ischemia Monitor #Recurrent falls likely secondary to orthostasis BP relatively low monitor on tele Started on midodrine, new hold parameters (SBP >115) #sinus node dysfunction sp PPM Pacemaker interrogation #Chronic diastolic heart failure h/o Pulmonary hypertension Monitor volume status Hold diuretics on hold: metolazone 2.5mg weekly, torsemide 20mg BID #LARRY Noncompliant with BiPAP #CKD III Monitor renal function Avoid nephrotoxic agents as able Other chronic conditions: H/O gastric bypass chronic anemia, Hb at baseline Hypothyroidism--continue levothyroxine Possible functional disability given recurrent admissions/compliance issues DVT Px: Heparin SQ Code Status Full code Disposition PT OT rehab at [facility] Admission and Anticipated Discharge Date Admission Date: November 30, 2023 Subjective Patient in evaluated at bedside Still with diarrhea, feels marginally improved. No cough or symptoms at this time. Denies any abdominal pain and nausea gone. Encourage Po intake Physical Exam Constitutional: WD/WN, vitals as above Respiratory: normal respiratory effort, lungs clear to auscultation Cardiovascular: RRR, no murmur, no edema Gastrointestinal (Abdomen): normal bowel sounds, soft, nontender, no hepatosplenomegaly Results & Data Results & Data Vital Signs (Past 12 Hours) Vital Signs Temp Pulse Resp BP BP Pulse Ox O2 Del Method 12/03/23 11:18 37.1 C 80 18 149/82 H 100 Room Air 12/03/23 11:08 99 H 17 93 Room Air 12/03/23 07:39 36.6 C 84 18 144/84 H 95 Room Air 12/03/23 07:05 97 H 17 93 Room Air 12/03/23 03:10 36.4 C 89 17 128/72 92 Room Air 12/03/23 00:10 37.1 C 92 H 18 133/74 92 Room Air Laboratory Results Short CBC 12/03/23 Range/Units 07:20 WBC 8.95 (4.8-10.8) K/ul Hgb 11.6 L (12.0-16.0) g/dl Hct 35.3 L (37.0-47.0) % Plt Count 250 (130-400) K/uL BMP 12/03/23 07:20 Sodium 150 H Potassium 3.2 L Chloride 119 H Carbon Dioxide 24 BUN 15 Creatinine 0.83 Glucose 118 H Calcium 8.4 L Medications Administered Home Medications Medication Instructions Recorded Confirmed Last Taken colesevelam 625 mg tablet (WelChol) 625 mg PO TID 06/17/18 11/29/23 11/29/23 08:00 montelukast 10 mg tablet 10 mg PO HS 06/17/18 11/29/23 11/28/23 (Singulair) ipratropium 0.5 mg-albuterol 3 mg 3 ml inhalation Q4H PRN Shortness 05/05/19 11/29/23 11/10/23 (2.5 mg base)/3 mL nebulization Of Breath Or Wheezing soln mxzgxu-jtktodbb-zgeante 4 cap PO TID 05/05/19 11/29/23 11/29/23 08:00 24,000-76,000-120,000 unit capsule,delayed rel (Creon) omeprazole magnesium 20 mg 20 mg PO BID 05/17/19 11/29/23 11/29/23 08:00 tablet,delayed release (Prilosec OTC) metolazone 2.5 mg tablet 2.5 mg PO WK 11/15/22 11/29/23 11/26/23 oxycodone-acetaminophen 5 mg-325 1 tab PO Q6H PRN Pain 11/15/22 11/29/23 Unknown mg tablet (Percocet) ropinirole 0.5 mg tablet 0.5 mg PO HS 11/15/22 11/29/23 11/28/23 valacyclovir 500 mg tablet 500 mg PO QAM 11/15/22 11/29/23 11/29/23 calcitriol 0.5 mcg capsule 0.5 mcg PO BID #60 caps 12/21/22 11/29/23 11/29/23 08:00 albuterol sulfate 90 mcg/actuation 2 inh inhalation Q6H PRN Shortness 02/03/23 11/29/23 11/10/23 breath activated powder inhaler Of Breath Or Wheezing #1 ea levothyroxine 88 mcg tablet 88 mcg PO QAM #30 tabs 05/21/23 11/29/23 11/29/23 cyanocobalamin (vitamin B-12) 1,000 mcg PO DAILY 05/24/23 11/29/23 11/29/23 1,000 mcg tablet (Vitamin B-12) nitroglycerin 0.4 mg sublingual 0.4 mg sublingual DIRECTED PRN 05/24/23 11/29/23 Unknown tablet (Nitrostat) Chest Pain cetirizine 10 mg tablet 10 mg PO DAILY PRN Allergy Symptoms 05/29/23 11/29/23 10/30/23 torsemide 20 mg tablet 20 mg PO BID 06/24/23 11/29/23 11/29/23 08:00 calcium carbonate 600 mg calcium 1,200 mg PO TID 07/22/23 11/29/23 11/29/23 08:00 (1,500 mg) tablet (Calcium) denosumab 60 mg/mL subcutaneous 60 mg subcut Q180D #1 mL 07/22/23 11/29/23 syringe (Prolia) fluticasone furoate 200 1 inh inhalation QAM 10/30/23 11/29/23 11/29/23 mcg-vilanterol 25 mcg/dose inhalation powder (Breo Ellipta) qwdbqpjzrnyl-klukvufq-fqfnce tablet 1 tab PO DAILY 10/30/23 11/29/23 11/29/23 rosuvastatin 10 mg tablet 10 mg PO QAM 10/30/23 11/29/23 11/29/23 diphenhydramine-zinc acetate 2 1 applic EXT QID PRN itching #30 11/04/2311/06 Unknown %-0.1 % topical cream (Anti-Itch grams (diphenhydramine) with Zinc) potassium chloride 20 mEq 20 meq PO TID #90 tabs 11/04/23 11/29/23 11/29/23 08:00 tablet,extended release(part/cryst) topiramate 25 mg tablet 25 mg PO HS #54 tabs 11/04/23 11/29/23 11/28/23 vibegron 75 mg tablet (Gemtesa) 75 mg PO QAM 11/06/23 11/29/23 11/29/23 pregabalin 100 mg capsule 100 mg PO TID 30 days #90 caps 11/09/23 11/29/23 11/29/23 08:00 lamotrigine 25 mg tablet See Rx Instructions .Route .COMPLEX 11/29/23 11/29/23 11/29/23 08:00 potassium citrate 15 mEq (1,620 15 meq PO BID 11/29/23 11/29/23 11/29/23 08:00 mg) tablet,extended release Active Medications Generic Name Dose Route Start Last Admin Trade Name Krystianq PRN Reason Stop Dose Admin Acetaminophen 650 mg 11/30/23 01:09 12/01/23 11:54 Acetaminophen 325 Mg Tab PO 12/30/23 01:08 650 mg Q4H PRN Administration Pain or Fever Cetirizine HCl 10 mg 11/30/23 03:34 12/03/23 08:28 Cetirizine Hcl 10 Mg Tablet PO 12/30/23 03:33 10 mg DAILY PRN Administration Allergy Symptoms Cyanocobalamin 1,000 mcg 11/30/23 09:00 12/03/23 08:30 Cyanocobalamin (B-12) 500 Mcg Tablet PO 12/30/23 08:59 1,000 mcg DAILY CATE Administration Fluticasone/Vilanterol 1 puffs 11/30/23 09:00 12/03/23 08:33 Fluticasone/Vilanterol 200/25mcg 14 Puffs/Inhaler INH 12/30/23 08:59 1 puffs QAM CATE Administration Heparin Sodium (Porcine) 5,000 units 11/30/23 06:00 12/03/23 06:20 Heparin Sod 5,000 Unit/0.5 Ml Vial SQ 12/30/23 05:59 5,000 units Q8 CATE Administration Hydroxyzine HCl 10 mg 12/01/23 23:10 12/01/23 23:49 Hydroxyzine Hcl 10 Mg Tab PO 12/31/23 23:09 10 mg QID PRN Administration Anxiety Ipratropium [place] 0.5 mg 11/30/23 07:00 12/03/23 11:08 Ipratropium [place] Neb Soln 0.02% 0.5mg/2.5ml Vial INH 12/30/23 06:59 0.5 mg QIDR CATE Administration Lactobacillus Acidophilus 2 cap 11/30/23 09:00 12/03/23 08:30 Advanced Probiotic 1250 Mg Capsule PO 12/30/23 08:59 2 cap DAILY CATE Administration Lamotrigine 25 mg 12/02/23 21:00 12/03/23 08:31 Lamotrigine 25 Mg Tab PO 01/01/24 20:59 25 mg BID CATE Administration Protocol Levalbuterol HCl 1.25 mg 11/30/23 07:00 12/03/23 11:07 Levalbuterol 1.25 Mg/3 Ml Neb NEB 12/30/23 06:59 1.25 mg QIDR CATE Administration Levothyroxine Sodium 88 mcg 11/30/23 06:30 12/03/23 08:29 Levothyroxine Sodium 88 Mcg Tablet PO 12/30/23 06:29 88 mcg DAILYBB CATE Administration Midodrine 2.5 mg 11/30/23 05:10 12/03/23 08:29 Midodrine Hcl 2.5 Mg Tab PO 12/30/23 05:09 2.5 mg TID@0800,1200,1700 CATE Administration Miscellaneous 1 each 11/30/23 08:00 12/03/23 09:06 Order Awaiting Action: Colesevelam [Welchol] 625 Mg Tablet N/A 12/30/23 07:59 Not Given QS CATE Multivitamins/Minerals 1 tab 11/30/23 09:00 12/03/23 08:29 Cerovite Adv Formula Tab PO 12/30/23 08:59 1 tab DAILY CATE Administration Ondansetron HCl 4 mg 12/01/23 12:08 12/01/23 23:52 Ondansetron Inj 2 Mg/Ml 2 Ml Vial IV 12/31/23 12:07 4 mg Q6H PRN Administration Nausea And Vomiting Prednisone 40 mg 12/01/23 09:00 12/03/23 08:30 Prednisone 20 Mg Tab PO 12/05/23 08:59 40 mg DAILY CATE Administration Risperidone 2 mg 12/02/23 21:00 12/02/23 20:43 Risperidone 2 Mg Tablet PO 01/01/24 20:59 2 mg QPM CATE Administration Valacyclovir HCl 500 mg 11/30/23 09:00 12/03/23 08:32 Valacyclovir Hcl 500 Mg Tablet PO 12/30/23 08:59 500 mg QAM CATE Administration Vibegron 75 mg 11/30/23 09:00 12/03/23 08:32 Vibegron 75 Mg Tab PO 12/30/23 08:59 75 mg QAM CATE Administration
[2023-12-03] MEDS: POTASSIUM PHOSPHATE 30 MMOL in SODIUM CHLORIDE 0.9% 500 ML IV ONE (13:22)
[2023-12-03] MEDS: POT PHOSPHATE MONOBASIC W/ SOD TAB PO SCH (14:00)
[2023-12-03] MEDS ORDERED: VANCOMYCIN CONSULT ACTIVE PRN (15:01)
[2023-12-03] MEDS: VANCOMYCIN HCL 1,500 MG in SODIUM CHLORIDE 0.9% 500 ML IV ONE (17:53)
--- NOTE | 2023-12-03 19:04 | Pharmacy Report ---
Pharmacy PK ABX Note - Date of Service December 03, 2023 - Assessment and Plan Assessment 73 year old F admitted 11/30/23 with acute hypoxic respiratory failure. Treated with pip-tazo 11/29 PM - . Vancomycin started on . Staph species growing in sputum culture, positive MRSA nasal. h/o CKD III, baseline Scr 1.3 mg/dL Plan Vancomycin * Loading dose: 1500 mg IV x 1 * Maintenance dose: 1000 mg IV every 18 hours * Regimen is predicted to achieve target AUC/JOSE MIGUEL of 400-600 mg/L.hr * predicted AUC at steady state: 524 * predicted trough at steady state: ~15 mcg/mL * Level time/date to be determined Pharmacy will continue to follow and will adjust dose/frequency as necessary. Thank you.
[2023-12-03] MEDS: DEXTROSE 5% 1,000 ML IV SCH (20:35)
[2023-12-04] MEDS: VANCOMYCIN HCL 1,000 MG in SODIUM CHLORIDE 0.9% 250 ML IV SCH (06:09)
--- NOTE | 2023-12-04 09:05 | Gastrointestinal Consultation ---
Date of Consultation December 04, 2023 Assessment & Plan (1) Diarrhea: 73 year old female with history of diastolic heart failure, hypothyroidism, sinus node dysfunction, history of gastric bypass, pancreatic insufficiency, chronic pain, neuropathy, sleep apnea, depression and others below who is admitted COPD/ILD exacerbation secondary to HCAP/coronavirus OC43, acute metabolic encephalopathy and norovirus - GI was consulted for diarrhea. She reports 1-3 loose stools daily, this is similar to nursing documentation. Would continue conservative management. Although norovirus is typically self- limiting in 48-72 hours, it is possible she has diarrhea related to active infection at this point or post-infectious irritable bowel syndrome. Her last colonoscopy was in 2016, if she has persistent diarrhea, she should follow up in GI clinic and at that time may arrange an outpatient colonoscopy. Thank you for allowing us to participate in the care of this patient. Please call with any acute changes, questions or concerns. Please see addendum below with additional recommendation from my supervising physician. Supervising Physician Co-Signing Physician Notes agree with pe and plan as documented. Frail thin elderly female. Diarrhea suspected to be post infectious ibs or residual post viral. Agree with further plan of care as documented. History of Present Illness Reason for Consultation: diarrhea, norovirus Requesting Physician: Melvin Attending Physician: Kait Charles MD History of Present Illness 73 year old female with history of diastolic heart failure, hypothyroidism, sinus node dysfunction, history of gastric bypass, pancreatic insufficiency, chronic pain, neuropathy, sleep apnea, depression and others below who is admitted COPD/ILD exacerbation secondary to HCAP/coronavirus OC43, acute metabolic encephalopathy and norovirus. GI was asked to evaluate for diarrhea. Pt was seen and evaluated, chart reviewed. Notes that her stools are still loose but reports only 1-3 BMs daily. No report of black or bloody stools. No abd pain. Has decreased appetite form time to time. No nausea. No vomiting. Has had some dry heaving. Norovirus + 12/01/2312/02: 1 BM documented 12/01: 3 BM documented 11/30: BM documented EGD 2023: - No endoscopic esophageal abnormality to explain patient's dysphagia. Esophagus dilated to 54 Fr. - Z-line regular, 35 cm from the incisors. - Gastric bypass with a small-sized pouch and intact staple line. Gastrojejunal anastomosis characterized by healthy appearing mucosa. - No specimens collected. Allergies Allergy/AdvReac Type Severity Reaction Status Date / Time bethanechol Allergy Intermediate RASH, Verified 11/29/23 20:43 "FEELS FUNNY" Cephalosporins Allergy Intermediate RASH, Verified 11/29/23 20:43 DIARRHEA levofloxacin Allergy Intermediate RASH,TURNED Verified 11/29/23 20:43 RED Sulfa (Sulfonamide Allergy Intermediate Generalized Verified 11/29/23 20:43 Antibiotics) Rash ertapenem Allergy Mild RASH Verified 11/29/23 20:43 atropine Allergy Unknown ON [facility]G MED Verified 11/29/23 20:43 LIST clindamycin Allergy Unknown Unknown Verified 11/29/23 20:43 dipyridamole Allergy Unknown PERSANTINE--ON Verified 11/29/23 20:43 GMG MED LIST droperidol Allergy Unknown Unknown Verified 11/29/23 20:43 meperidine [From Demerol] Allergy Unknown ? ALLERGY Verified 11/29/23 20:43 ON [facility] MED LIST promethazine Allergy Unknown UNKNOWN Verified 11/29/23 20:43 tobramycin Allergy Unknown UNKNOWN Verified 11/29/23 20:43 aspirin AdvReac Severe BLEEDING Verified 11/29/23 20:43 doxycycline AdvReac Severe severe Verified 11/29/23 20:43 Diarrhea, nausea metolazone AdvReac Severe ELECTROLYTE Verified 11/29/23 20:43 ISSUES--HYPOKALEMIA bupropion AdvReac Intermediate NERVOUS Verified 11/29/23 20:43 REACTION cephalexin AdvReac Intermediate GI SYMPTOMS Verified 11/29/23 20:43 morphine AdvReac Intermediate NERVOUS Verified 11/29/23 20:43 REACTION TO IT nitrofurantoin AdvReac Intermediate Vomiting Verified 11/29/23 20:43 [From Macrobid] prochlorperazine AdvReac Intermediate NERVOUS Verified 11/29/23 20:43 REACTION tedizolid AdvReac Intermediate GI SYMPTOMS Verified 11/29/23 20:43 venlafaxine [From Effexor] AdvReac Intermediate NERVOUS Verified 11/29/23 20:43 REACTION lamotrigine AdvReac Unknown tremors Verified 11/29/23 20:43 Home Medications Medication Instructions Recorded Confirmed Type colesevelam 625 mg tablet (WelChol) 625 mg PO TID 06/17/18 11/29/23 History montelukast 10 mg tablet 10 mg PO HS 06/17/18 11/29/23 History (Singulair) ipratropium 0.5 mg-albuterol 3 mg 3 ml inhalation Q4H PRN Shortness 05/05/19 11/29/23 History (2.5 mg base)/3 mL nebulization Of Breath Or Wheezing soln xfzdde-awxgkjxs-doticwy 4 cap PO TID 05/05/19 11/29/23 History 24,000-76,000-120,000 unit capsule,delayed rel (Creon) omeprazole magnesium 20 mg 20 mg PO BID 05/17/19 11/29/23 History tablet,delayed release (Prilosec OTC) metolazone 2.5 mg tablet 2.5 mg PO WK 11/15/22 11/29/23 History oxycodone-acetaminophen 5 mg-325 1 tab PO Q6H PRN Pain 11/15/22 11/29/23 History mg tablet (Percocet) ropinirole 0.5 mg tablet 0.5 mg PO HS 11/15/22 11/29/23 History valacyclovir 500 mg tablet 500 mg PO QAM 11/15/22 11/29/23 History calcitriol 0.5 mcg capsule 0.5 mcg PO BID #60 caps 12/21/22 11/29/23 Rx albuterol sulfate 90 mcg/actuation 2 inh inhalation Q6H PRN Shortness 02/03/23 11/29/23 Rx breath activated powder inhaler Of Breath Or Wheezing #1 ea levothyroxine 88 mcg tablet 88 mcg PO QAM #30 tabs 05/21/23 11/29/23 Rx cyanocobalamin (vitamin B-12) 1,000 mcg PO DAILY 05/24/23 11/29/23 History 1,000 mcg tablet (Vitamin B-12) nitroglycerin 0.4 mg sublingual 0.4 mg sublingual DIRECTED PRN 05/24/23 11/29/23 History tablet (Nitrostat) Chest Pain cetirizine 10 mg tablet 10 mg PO DAILY PRN Allergy Symptoms 05/29/23 11/29/23 History torsemide 20 mg tablet 20 mg PO BID 06/24/23 11/29/23 History calcium carbonate 600 mg calcium 1,200 mg PO TID 07/22/23 11/29/23 History (1,500 mg) tablet (Calcium) denosumab 60 mg/mL subcutaneous 60 mg subcut Q180D #1 mL 07/22/23 11/29/23 Rx syringe (Prolia) fluticasone furoate 200 1 inh inhalation QAM 10/30/23 11/29/23 History mcg-vilanterol 25 mcg/dose inhalation powder (Breo Ellipta) utzjgqbewvvg-siyenelx-xmoiij tablet 1 tab PO DAILY 10/30/23 11/29/23 History rosuvastatin 10 mg tablet 10 mg PO QAM 10/30/23 11/29/23 History diphenhydramine-zinc acetate 2 1 applic EXT QID PRN itching #30 11/04/23 11/29/23 Rx %-0.1 % topical cream (Anti-Itch grams (diphenhydramine) with Zinc) potassium chloride 20 mEq 20 meq PO TID #90 tabs 11/04/23 11/29/23 Rx tablet,extended release(part/cryst) topiramate 25 mg tablet 25 mg PO HS #54 tabs 11/04/23 11/29/23 Rx vibegron 75 mg tablet (Gemtesa) 75 mg PO QAM 11/06/23 11/29/23 History pregabalin 100 mg capsule 100 mg PO TID 30 days #90 caps 11/09/23 11/29/23 Rx lamotrigine 25 mg tablet See Rx Instructions .Route .COMPLEX 11/29/23 11/29/23 History potassium citrate 15 mEq (1,620 15 meq PO BID 11/29/23 11/29/23 History mg) tablet,extended release Patient History Medical History Difficulty swallowing "trouble swallowing pills" Poor historian Neuropathy Recurrent major depression in remission History of DVT (deep vein thrombosis) remote hx, unknown etiology, Pacemaker [employer], implanted 12/2022 (bradycardia) > pt does not know when last checked Right rotator cuff tear Bronchiectasis pt unaware ILD (interstitial lung disease) Osteoporosis Nocturnal hypoxemia Osteoarthritis of left knee Kidney stones LARRY treated with BiPAP Junctional bradycardia Hypothyroidism Secondary hyperparathyroidism Pulmonary hypertension mild per 07/[address] report Atherosclerosis of both lower extremities Chronic kidney disease stage 3b GERD without esophagitis COPD (chronic obstructive pulmonary disease) "Well controlled" History of anemia Lumbar transverse process fracture Pt reports lower back detioriating - can't lie flat/sleep on a chair Pulmonary nodule seen on imaging study Reactive hypoglycemia Vitamin D deficiency Wrist injury Scar tissue surrounding remote wrist ORIF several years ago resulting in intermittent inflammation per pt Bilateral nephrolithiasis H/O concussion Remote hx "a long time ago" Incisional hernia Abdominal (from multiple surgeries/feeding tube) Obesity Sepsis 05/2020 @ [facility], urosepsis 2/2 obstructing renal stone, S/P cysto/stent and E SWL Chronic urinary tract infection recent hospitalization for this at [facility] DC'ed 11/05/23 > pt reports she is still very fatigued Sleep apnea complex sleep apnea, BIPAP (non-compliant) Hyperlipidemia per records Chronic venous insufficiency Chronic sinusitis Pancreatic insufficiency chronic pancreatitis MRSA (methicillin resistant staph aureus) culture positive Hx (Left wrist) Had 3 nasal swab and all negative (through [facility] pt) Port-A-Cath in place right side due to poor vascular access Urinary leakage PUD (peptic ulcer disease) Had feeding tube for 28 years (has been removed for 11 years) Depression Asthma Peripheral neuropathy Lumbar stenosis Chronic diastolic (congestive) heart failure Follows with [facility] cardiology Short bowel syndrome PVC (premature ventricular contraction) Pernicious anemia (08/08/13) Surgical History History of esophageal dilatation History of cystoscopy multiple H/O shoulder surgery RT arthroscopy 05/28/2021: LMA#4 atraumatic x 1 + PNB. Anesthesia postop progress note: "Pt denies SOB at this time. Block is functioning well. Vital signs stable and appropriate. Oxygenating well considering block placement and her comorbidities. Plan to discharge home with IS." S/P right rotator cuff repair S/P ureteral stent placement Status post laser lithotripsy of ureteral calculus History of prior ablation treatment Right LE in January 2020 and left LE 04/18/20 History of partial gastrectomy History of sinus surgery History of tonsillectomy and adenoidectomy History of total abdominal hysterectomy and bilateral salpingo-oophorectomy History of cholecystectomy History of appendectomy History of open reduction and internal fixation (ORIF) procedure left wrist + manipulation (01/2018) and I&D (10/2019) History of joint replacement Rt thumb History of knee replacement procedure of right knee History of esophagogastroduodenoscopy (EGD) History of colonoscopy History of gastrointestinal surgery multiple History of cardiac cath 08/2019 ([facility])- essentially normal coronary arteries angiographically, no stents Family History Mother Family history of diabetes mellitus Sister Family history of diabetes mellitus Family history of breast cancer Father Esophageal cancer Other Family history non-contributory No family history of adverse response to anesthesia Social History Smoking Status: Never smoker Second Hand Exposure: No; Do You Dip or Chew Tobacco: No; Tobacco Cessation Education Requested by Patient: No Hx Alcohol Use: Yes Alcohol type: beer Hx Substance Use: No Preferred Language: Yoruba Communication Ability: Effective Visual Impairment: No Limitations Cake Puncher Required: No Beliefs That Will Affect Care: None marital status: Single Current Living Situation: Personal Care Facility Current Living Situation Comment: apartment at [facility] in [place]/ had aid How many Children do You have: 0 Feels Safe at Home: Yes Safety Concerns: Feels Safe At This Time Assistive Devices: Walker Review of Systems Review of Systems: All systems reviewed & are unremarkable except as noted in HPI & below Physical Exam Constitutional: WD/WN, vitals as above Respiratory: normal respiratory effort, lungs clear to auscultation Cardiovascular: Rate/Rhythm: regular rate Gastrointestinal (Abdomen): Percussion/Palpation: abdomen soft; abdomen n ontender, no guarding and abdomen not rigid Skin: no rashes, warm and dry Results & Data Vital Signs (Past 12 Hours) Vital Signs Temp Pulse Pulse Resp BP BP Pulse Ox 12/04/23 07:41 36.9 C 79 17 115/68 12/04/23 07:03 88 18 94 12/04/23 03:34 36.8 C 73 18 135/80 93 12/03/23 23:49 78 12/03/23 23:03 36.7 C 85 20 153/86 H 90 O2 Del Method 12/04/23 07:41 Room Air 12/04/23 07:03 Room Air 12/04/23 03:34 Room Air 12/03/23 23:49 12/03/23 23:03 Room Air Laboratory Results 12/04/23 Range/Units 07:36 Phosphorus Pending Magnesium Pending
[2023-12-04 09:22] LABS: Magnesium 1.7 mg/dl (1.7-2.4); Phosphorus 2.8 mg/dl (2.5-4.9)
[2023-12-04] MEDS: DULoxetine HCL 30 MG CAP PO SCH (09:30)
[2023-12-04 09:42] LABS: BUN Creatinine Ratio 19.7 (10-20); Calcium 7.3 mg/dl (8.6-10.3); Creatinine Clr Calc Pharmacy 64.6 ml/min; Est GFR (Non-African American) 88.9 ml/min; Potassium 3.2 mmol/L (3.5-5.1)
--- NOTE | 2023-12-04 10:11 | Hospitalist Progress Note ---
Date of Service December 04, 2023 Assessment & Plan (1) Encephalopathy: Plan: Ms Braswell is a 73 year old woman with medical history significant for chronic diastolic heart failure (EF 55 to 60%, TTE 2022), sinus node dysfunction sp PPM, asthma/COPD/ILD, LARRY, pulmonary hypertension, CKDIII (baseline creatinine 1.3), history of gastric bypass, hyperparathyroidism as per records, hypothyroidism, ankylosing spondylitis as per records, chronic anemia (baseline hemoglobin of 11), recurrent UTIs (ESBL E. coli infection), urolithiasis, history pancreatic insufficiency/malabsorption, mood/anxiety disorder, chronic pain/neuropathy who is admitted for evaluation of encephalopathy. Patient was found down on 11/29 and brought to ED. Notable issue with 1 week of diarrhea preceding admission. Patient's encephalopathy appears resolved. Episode of tremulousness and anxiety in the evening which have resolved as well. Patient with MRSA nare + and staph in sputum, as well as developing opacities on imaging. Continuing with [facility]. ID consulted- awaiting susceptibilities #Hypernatremia *improved -Poor PO intake and diarrhea, increased insensible losses -2.4L FWD, D5W held in hope to encourage intake -Encourage PO intake #Acute metabolic encephalopathy *resolved Multifactorial: Multifocal pneumonia, possible aspiration,UTI, Rhabdo Multiple viral infections on going, rhabdo CT with consolidations noted, improving with IVF and IV abx -Treat as follows #Acute hypoxic respiratory failure *improving #superimposed staph pneumoniae #COPD/ILD exacerbation secondary to HCAP/coronavirus OC43 #Recurrent UTI (H/O ESBL) --CT head:No evidence of acute intracranial pathology. --CT chest:Consolidations in bilateral lung bases along the bronchovascular pathways most concerning for an infectious etiology. -- BioFire positive for coronavirus OC43 --Normal ammonia --Elevated procalcitonin -- Blood culture negative to date --Urine culture NGTD --Discontinue Zosyn -MRSA +, sputum + staph -Infectious disease consult given MRSA nares + and staph in sputum -Vancomycin in interim, follow up with ID consult -Continue, plan for 5-7 days for staph Continue on prednisone, EOT 12/04 Continue Nebs Advance diet Continue home inhalers Transition to p.o. antibiotics as able #Traumatic rhabdomyolysis *resolved #Mechanical fall CK [id number] Discontinue IVF #Acute Diarrhea 2/2 Norovirus gastroenteritis Secondary to norovirus infection Stool negative for C. difficile Monitor volume status IV fluids as needed GI consult--continue conservative, viral enteritis maybe post enteritis IBS -OP follow up #Hypokalemia Replete electrolytes as needed Monitor #Troponin elevation resolved Likely due to Rhabdo, demand ischemia Monitor #Recurrent falls likely secondary to orthostasis BP relatively low monitor on tele Started on midodrine, new hold parameters (SBP >115) #sinus node dysfunction sp PPM Monitor on tele #Chronic diastolic heart failure h/o Pulmonary hypertension Monitor volume status Hold diuretics on hold: metolazone 2.5mg weekly, torsemide 20mg BID #LARRY Noncompliant with BiPAP #CKD III Monitor renal function Avoid nephrotoxic agents as able Other chronic conditions: H/O gastric bypass chronic anemia, Hb at baseline Hypothyroidism--continue levothyroxine Possible functional disability given recurrent admissions/compliance issues DVT Px: Heparin SQ Code Status Full code Disposition PT OT rehab at [facility]--patient declined at this time, awaiting final recommendations Admission and Anticipated Discharge Date Admission Date: November 30, 2023 Subjective Patient evaluated at bedside Reports diarrhea improving. Denies any new concerns. Denies cough or sob at this time Tried to emphasize importance of rehab. Patient became tearful about discussion of rehab. She is adamant that she will not go, despite her ongoing decline. She states the last time she went it was "just so terrible." Physical Exam Constitutional: WD/WN, vitals as above Respiratory: normal respiratory effort, lungs clear to auscultation Cardiovascular: RRR, no murmur, no edema Gastrointestinal (Abdomen): normal bowel sounds, soft, nontender, no hepatosplenomegaly Results & Data Results & Data Vital Signs (Past 12 Hours) Vital Signs Temp Pulse Pulse Resp BP BP Pulse Ox 12/04/23 07:41 36.9 C 79 17 115/68 12/04/23 07:03 88 18 94 12/04/23 03:34 36.8 C 73 18 135/80 93 12/03/23 23:49 78 12/03/23 23:03 36.7 C 85 20 153/86 H 90 O2 Del Method 12/04/23 07:41 Room Air 12/04/23 07:03 Room Air 12/04/23 03:34 Room Air 12/03/23 23:49 12/03/23 23:03 Room Air Laboratory Results [facility] 12/04/23 07:36 Sodium 145 Potassium 3.2 L Chloride 114 H Carbon Dioxide 20 L BUN 13 Creatinine 0.66 Glucose 120 H Calcium 7.3 L Medications Administered Home Medications Medication Instructions Recorded Confirmed Last Taken colesevelam 625 mg tablet (WelChol) 625 mg PO TID 06/17/18 11/29/23 11/29/23 08:00 montelukast 10 mg tablet 10 mg PO HS 06/17/18 11/29/23 11/28/23 (Singulair) ipratropium 0.5 mg-albuterol 3 mg 3 ml inhalation Q4H PRN Shortness 05/05/19 11/29/23 11/10/23 (2.5 mg base)/3 mL nebulization Of Breath Or Wheezing soln qdpxsh-amyfrgab-iegruaf 4 cap PO TID 05/05/19 11/29/23 11/29/23 08:00 24,000-76,000-120,000 unit capsule,delayed rel (Creon) omeprazole magnesium 20 mg 20 mg PO BID 05/17/19 11/29/23 11/29/23 08:00 tablet,delayed release (Prilosec OTC) metolazone 2.5 mg tablet 2.5 mg PO WK 11/15/22 11/29/23 11/26/23 oxycodone-acetaminophen 5 mg-325 1 tab PO Q6H PRN Pain 11/15/22 11/29/23 Unknown mg tablet (Percocet) ropinirole 0.5 mg tablet 0.5 mg PO HS 11/15/22 11/29/23 11/28/23 valacyclovir 500 mg tablet 500 mg PO QAM 11/15/22 11/29/23 11/29/23 calcitriol 0.5 mcg capsule 0.5 mcg PO BID #60 caps 12/21/22 11/29/23 11/29/23 08:00 albuterol sulfate 90 mcg/actuation 2 inh inhalation Q6H PRN Shortness 02/03/23 11/29/23 11/10/23 breath activated powder inhaler Of Breath Or Wheezing #1 ea levothyroxine 88 mcg tablet 88 mcg PO QAM #30 tabs 05/21/23 11/29/2311/29/24 cyanocobalamin (vitamin B-12) 1,000 mcg PO DAILY 05/24/23 11/29/23 11/29/23 1,000 mcg tablet (Vitamin B-12) nitroglycerin 0.4 mg sublingual 0.4 mg sublingual DIRECTED PRN 05/24/23 11/29/23 Unknown tablet (Nitrostat) Chest Pain cetirizine 10 mg tablet 10 mg PO DAILY PRN Allergy Symptoms 05/29/23 11/29/23 10/30/23 torsemide 20 mg tablet 20 mg PO BID 06/24/23 11/29/23 11/29/23 08:00 calcium carbonate 600 mg calcium 1,200 mg PO TID 07/22/23 11/29/23 11/29/23 08:00 (1,500 mg) tablet (Calcium) denosumab 60 mg/mL subcutaneous 60 mg subcut Q180D #1 mL 07/22/23 11/29/23 08/11/23 syringe (Prolia) fluticasone furoate 200 1 inh inhalation QAM 10/30/23 11/29/23 11/29/23 mcg-vilanterol 25 mcg/dose inhalation powder (Breo Ellipta) goidyqsrbbts-wksboqyl-baawjm tablet 1 tab PO DAILY 10/30/23 11/29/23 11/29/23 rosuvastatin 10 mg tablet 10 mg PO QAM 10/30/23 11/29/23 11/29/23 diphenhydramine-zinc acetate 2 1 applic EXT QID PRN itching #30 11/04/23 11/29/23 Unknown %-0.1 % topical cream (Anti-Itch grams (diphenhydramine) with Zinc) potassium chloride 20 mEq 20 meq PO TID #90 tabs 11/04/23 11/29/23 11/29/23 08:00 tablet,extended release(part/cryst) topiramate 25 mg tablet 25 mg PO HS #54 tabs 11/04/23 11/29/23 11/28/23 vibegron 75 mg tablet (Gemtesa) 75 mg PO QAM 11/06/23 11/29/23 11/29/23 pregabalin 100 mg capsule 100 mg PO TID 30 days #90 caps 11/09/23 11/29/23 11/29/23 08:00 lamotrigine 25 mg tablet See Rx Instructions .Route .COMPLEX 11/29/23 11/29/23 11/29/23 08:00 potassium citrate 15 mEq (1,620 15 meq PO BID 11/29/23 11/29/23 11/29/23 08:00 mg) tablet,extended release Active Medications Generic Name Dose Route Start Last Admin Trade Name Freq PRN Reason Stop Dose Admin Acetaminophen 650 mg 11/30/23 01:09 12/01/23 11:54 Acetaminophen 325 Mg Tab PO 12/30/23 01:08 650 mg Q4H PRN Administration Pain or Fever Cetirizine HCl 10 mg 11/30/23 03:34 12/03/23 08:28 Cetirizine Hcl 10 Mg Tablet PO 12/30/23 03:33 10 mg DAILY PRN Administration Allergy Symptoms Cyanocobalamin 1,000 mcg 11/30/23 09:00 12/03/23 08:30 Cyanocobalamin (B-12) 500 Mcg Tablet PO 12/30/23 08:59 1,000 mcg DAILY CATE Administration Fluticasone/Vilanterol 1 puffs 11/30/23 09:00 12/03/23 08:33 Fluticasone/Vilanterol 200/25mcg 14 Puffs/Inhaler INH 12/30/23 08:59 1 puffs QAM CATE Administration Heparin Sodium (Porcine) 5,000 units 11/30/23 06:00 12/04/23 06:06 Heparin Sod 5,000 Unit/0.5 Ml Vial SQ 12/30/23 05:59 5,000 units Q8 CATE Administration Hydroxyzine HCl 10 mg 12/01/23 23:10 12/01/23 23:49 Hydroxyzine Hcl 10 Mg Tab PO 12/31/23 23:09 10 mg QID PRN Administration Anxiety Vancomycin HCl 1,000 mg/ 270 mls @ 200 mls/hr 12/04/23 06:00 12/04/23 06:09 Sodium Chloride IV 12/10/23 17:59 200 mls/hr Q18H CATE Administration Ipratropium Aurora 0.5 mg 11/30/23 07:00 12/04/23 07:03 Ipratropium [place] Neb Soln 0.02% 0.5mg/2.5ml Vial INH 12/30/23 06:59 0.5 mg QIDR CATE Administration Lactobacillus Acidophilus 2 cap 11/30/23 09:00 12/03/23 08:30 Advanced Probiotic 1250 Mg Capsule PO 12/30/23 08:59 2 cap DAILY CATE Administration Lamotrigine 25 mg 12/02/23 21:00 12/03/23 22:06 Lamotrigine 25 Mg Tab PO 01/01/24 20:59 25 mg BID CATE Administration Protocol Levalbuterol HCl 1.25 mg 11/30/23 07:00 12/04/23 07:02 Levalbuterol 1.25 Mg/3 Ml Neb NEB 12/30/23 06:59 1.25 mg QIDR CATE Administration Levothyroxine Sodium 88 mcg 11/30/23 06:30 12/03/23 08:29 Levothyroxine Sodium 88 Mcg Tablet PO 12/30/23 06:29 88 mcg DAILYBB CATE Administration Midodrine 2.5 mg 11/30/23 05:10 12/03/23 17:54 Midodrine Hcl 2.5 Mg Tab PO 12/30/23 05:09 2.5 mg TID@0800,1200,1700 CATE Administration Miscellaneous 1 each 11/30/23 08:00 12/04/23 02:35 Order Awaiting Action: Colesevelam [Welchol] 625 Mg Tablet N/A 12/30/23 07:59 Not Given QS CATE Multivitamins/Minerals 1 tab 11/30/23 09:00 12/03/23 08:29 Cerovite Adv Formula Tab PO 12/30/23 08:59 1 tab DAILY CATE Administration Ondansetron HCl 4 mg 12/01/23 12:08 12/01/23 23:52 Ondansetron Inj 2 Mg/Ml 2 Ml Vial IV 12/31/23 12:07 4 mg Q6H PRN Administration Nausea And Vomiting Prednisone 40 mg 12/01/23 09:00 12/03/23 08:30 Prednisone 20 Mg Tab PO 12/05/23 08:59 40 mg DAILY CATE Administration Valacyclovir HCl 500 mg 11/30/23 09:00 12/03/23 08:32 Valacyclovir Hcl 500 Mg Tablet PO 12/30/23 08:59 500 mg QAM CATE Administration Vibegron 75 mg 11/30/23 09:00 12/03/23 08:32 Vibegron 75 Mg Tab PO 12/30/23 08:59 75 mg QAM CATE Administration
[2023-12-04] MEDS: POTASSIUM CHLORIDE CRTAB 20 MEQ TABCR PO STA (11:39)
[2023-12-04] MEDS: POT PHOSPHATE MONOBASIC W/ SOD TAB PO SCH (12:35)
--- NOTE | 2023-12-04 13:55 | Infectious Disease Consult ---
<Statement entered by Emelina Walsh MD - 12/09/23 09:12> Date of service: 12/04/2023 I have discussed the patient's management with the medical trainee and agree with the note. Please refer to the documented findings and plan of care. The patient's service consisted of an evaluation. I have seen and evaluated the patient. Emelina Walsh MD Date of Service December 04, 2023 Telehealth Information I performed this visit using a real-time telehealth connection between my location and the patients location ([facility]). After connecting through interactive tele-video, patient was identified by name and date of and/or wristband check.Patient (or authorized healthcare textiles sales representative) was informed that this was a telemedicine visit and it was being conducted confidentially over secure lines. My office door was closed and no one else was present in the room with me.Patient (or authorized healthcare textiles sales representative) provided consent to proceed with the visit, expressed an understanding of privacy and security of the telemedicine visit, and gave permission to have a hospital textiles sales representative in the room in order to assist with the visit and to conduct portions of the visit, as needed. I informed the patient (or authorized healthcare textiles sales representative) that I reviewed their record and presented the opportunity for them to ask any questions regarding the visit today. The patient agreed to participate. Assessment & Plan (1) Diarrhea: (2) Pneumonia due to Staphylococcus: (3) Norovirus: Plan Staphylococcus pneumonia: Agree with continuing IV vancomycin for now, follow up on the respiratory cultures, need to identify the species of Staphylococcus and given MRSA nasal screen positive we will continue with IV vancomycin. we will follow the final cultures, patient likely going to need 5-7 days of antibiotics for pneumoniae respiratory symptoms can be secondary to bacterial pneumoniae are Coronavirus OC43(not SARS-COV) Norovirus: Continue with supportive care, usually self limited in immune competent individuals Final antibiotic choice depends on the final respiratory cultures History of Present Illness History of Present Illness 73 Y F Medical history significant for chronic diastolic heart failure (EF 55 to 60%, TTE 2022), sinus node dysfunction sp PPM, asthma/COPD/ILD, LARRY, pulmonary hypertension, CRI (baseline creatinine 1.3), history of gastric bypass, hyperparathyroidism, hypothyroidism, ankylosing spondylitis, chronic anemia (baseline hemoglobin of 11), recurrent UTIs (ESBL E. coli infection), urolithiasis, history pancreatic insufficiency/malabsorption, mood/anxiety disorder, chronic pain/neuropathy was admitted on 11/30 with diarrhea, cough with productive sputum. Patient remained afebrile T-max 37.1, WBC 8.9 K, UA 1+ esterase, WBC 10-30, bacteria 1+, protein 2+. Blood culture from 11/29 no growth. Urine cultures from 11/30 no growth, respiratory cultures staph aureus GI consulted for chronic diarrhea, felt that it could be a norovirus related are post infectious irritable bowel syndrome, recommended colonoscopy as outpatient Antibiotic: Vancomycin Allergies Allergy/AdvReac Type Severity Reaction Status Date / Time bethanechol Allergy Intermediate RASH, Verified 11/29/23 20:43 "FEELS FUNNY" Cephalosporins Allergy Intermediate RASH, Verified 11/29/23 20:43 DIARRHEA levofloxacin Allergy Intermediate RASH,TURNED Verified 11/29/23 20:43 RED Sulfa (Sulfonamide Allergy Intermediate Generalized Verified 11/29/23 20:43 Antibiotics) Rash ertapenem Allergy Mild RASH Verified 11/29/23 20:43 atropine Allergy Unknown ON [facility] MED Verified 11/29/23 20:43 LIST clindamycin Allergy Unknown Unknown Verified 11/29/23 20:43 dipyridamole Allergy Unknown PERSANTINE--ON Verified 11/29/23 20:43 GMG MED LIST droperidol Allergy Unknown Unknown Verified 11/29/23 20:43 meperidine [From Demerol] Allergy Unknown ? ALLERGY Verified 11/29/23 20:43 ON [facility] MED LIST promethazine Allergy Unknown UNKNOWN Verified 11/29/23 20:43 tobramycin Allergy Unknown UNKNOWN Verified 11/29/23 20:43 aspirin AdvReac Severe BLEEDING Verified 11/29/23 20:43 doxycycline AdvReac Severe severe Verified 11/29/23 20:43 Diarrhea, nausea metolazone AdvReac Severe ELECTROLYTE Verified 11/29/23 20:43 ISSUES--HYPOKALEMIA bupropion AdvReac Intermediate NERVOUS Verified 11/29/23 20:43 REACTION cephalexin AdvReac Intermediate GI SYMPTOMS Verified 11/29/23 20:43 morphine AdvReac Intermediate NERVOUS Verified 11/29/23 20:43 REACTION TO IT nitrofurantoin AdvReac Intermediate Vomiting Verified 11/29/23 20:43 [From Macrobid] prochlorperazine AdvReac Intermediate NERVOUS Verified 11/29/23 20:43 REACTION tedizolid AdvReac Intermediate GI SYMPTOMS Verified 11/29/23 20:43 venlafaxine [From Effexor] AdvReac Intermediate NERVOUS Verified 11/29/23 20:43 REACTION lamotrigine AdvReac Unknown tremors Verified 11/29/23 20:43 Home Medications Medication Instructions Recorded Confirmed Type colesevelam 625 mg tablet (WelChol) 625 mg PO TID 06/17/18 11/29/23 History montelukast 10 mg tablet 10 mg PO HS 06/17/18 11/29/23 History (Singulair) ipratropium 0.5 mg-albuterol 3 mg 3 ml inhalation Q4H PRN Shortness 05/05/19 11/29/23 History (2.5 mg base)/3 mL nebulization Of Breath Or Wheezing soln fqzlvg-gmaeewwy-ckptyds 4 cap PO TID 05/05/19 11/29/23 History 24,000-76,000-120,000 unit capsule,delayed rel (Creon) omeprazole magnesium 20 mg 20 mg PO BID 05/17/19 11/29/23 History tablet,delayed release (Prilosec OTC) metolazone 2.5 mg tablet 2.5 mg PO WK 11/15/22 11/29/23 History oxycodone-acetaminophen 5 mg-325 1 tab PO Q6H PRN Pain 11/15/22 11/29/23 History mg tablet (Percocet) ropinirole 0.5 mg tablet 0.5 mg PO HS 11/15/22 11/29/23 History valacyclovir 500 mg tablet 500 mg PO QAM 11/15/22 11/29/23 History calcitriol 0.5 mcg capsule 0.5 mcg PO BID #60 caps 12/21/22 11/29/23 Rx albuterol sulfate 90 mcg/actuation 2 inh inhalation Q6H PRN Shortness 02/03/23 11/29/23 Rx breath activated powder inhaler Of Breath Or Wheezing #1 ea levothyroxine 88 mcg tablet 88 mcg PO QAM #30 tabs 05/21/23 11/29/23 Rx cyanocobalamin (vitamin B-12) 1,000 mcg PO DAILY 05/24/23 11/29/23 History 1,000 mcg tablet (Vitamin B-12) nitroglycerin 0.4 mg sublingual 0.4 mg sublingual DIRECTED PRN 05/24/23 11/29/23 History tablet (Nitrostat) Chest Pain cetirizine 10 mg tablet 10 mg PO DAILY PRN Allergy Symptoms 05/29/23 11/29/23 History torsemide 20 mg tablet 20 mg PO BID 06/24/23 11/29/23 History calcium carbonate 600 mg calcium 1,200 mg PO TID 07/22/23 11/29/23 History (1,500 mg) tablet (Calcium) denosumab 60 mg/mL subcutaneous 60 mg subcut Q180D #1 mL 07/22/23 11/29/23 Rx syringe (Prolia) fluticasone furoate 200 1 inh inhalation QAM 10/30/23 11/29/23 History mcg-vilanterol 25 mcg/dose inhalation powder (Breo Ellipta) tppviogculcd-rxfmmiys-gsulhm tablet 1 tab PO DAILY 10/30/23 11/29/23 History rosuvastatin 10 mg tablet 10 mg PO QAM 10/30/23 11/29/23 History diphenhydramine-zinc acetate 2 1 applic EXT QID PRN itching #30 11/04/23 11/29/23 Rx %-0.1 % topical cream (Anti-Itch grams (diphenhydramine) with Zinc) potassium chloride 20 mEq 20 meq PO TID #90 tabs 11/04/23 11/29/23 Rx tablet,extended release(part/cryst) topiramate 25 mg tablet 25 mg PO HS #54 tabs 11/04/23 11/29/23 Rx vibegron 75 mg tablet (Gemtesa) 75 mg PO QAM 11/06/23 11/29/23 History pregabalin 100 mg capsule 100 mg PO TID 30 days #90 caps 11/09/23 11/29/23 Rx lamotrigine 25 mg tablet See Rx Instructions .Route .COMPLEX 11/29/23 11/29/23 History potassium citrate 15 mEq (1,620 15 meq PO BID 11/29/23 11/29/23 History mg) tablet,extended release Patient History Medical History Difficulty swallowing "trouble swallowing pills" Poor historian Neuropathy Recurrent major depression in remission History of DVT (deep vein thrombosis) remote hx, unknown etiology, Pacemaker Medtronic, implanted 12/2022 (bradycardia) > pt does not know when last checked Right rotator cuff tear Bronchiectasis pt unaware ILD (interstitial lung disease) Osteoporosis Nocturnal hypoxemia Osteoarthritis of left knee Kidney stones LARRY treated with BiPAP Junctional bradycardia Hypothyroidism Secondary hyperparathyroidism Pulmonary hypertension mild per 07/[address] report Atherosclerosis of both lower extremities Chronic kidney disease stage 3b GERD without esophagitis COPD (chronic obstructive pulmonary disease) "Well controlled" History of anemia Lumbar transverse process fracture Pt reports lower back detioriating - can't lie flat/sleep on a chair Pulmonary nodule seen on imaging study Reactive hypoglycemia Vitamin D deficiency Wrist injury Scar tissue surrounding remote wrist ORIF several years ago resulting in intermittent inflammation per pt Bilateral nephrolithiasis H/O concussion Remote hx "a long time ago" Incisional hernia Abdominal (from multiple surgeries/feeding tube) Obesity Sepsis 05/2020 @ [facility], urosepsis 2/2 obstructing renal stone, S/P cysto/stent and ESWL Chronic urinary tract infection recent hospitalization for this at [facility] DC'ed 11/05/23 > pt reports she is still very fatigued Sleep apnea complex sleep apnea, BIPAP (non-compliant) Hyperlipidemia per records Chronic venous insufficiency Chronic sinusitis Pancreatic insufficiency chronic pancreatitis MRSA (methicillin resistant staph aureus) culture positive Hx (Left wrist) Had 3 nasal swab and all negative (through [facility] per pt) Port-A-Cath in place right side due to poor vascular access Urinary leakage PUD (peptic ulcer disease) Had feeding tube for 28 years (has been removed for 11 years) Depression Asthma Peripheral neuropathy Lumbar stenosis Chronic diastolic (congestive) heart failure [place] [facility] [place] Short bowel syndrome PVC (premature ventricular contraction) Pernicious anemia (08/08/13) Surgical History History of esophageal dilatation History of cystoscopy multiple H/O shoulder surgery RT arthroscopy 05/28/2021: LMA#4 atraumatic x 1 + PNB. Anesthesia postop progress note: "Pt denies SOB at this time. Block is functioning well. Vital signs stable and appropriate. Oxygenating well considering block placement and her comorbidities. Plan to discharge home with IS." S/P right rotator cuff repair S/P ureteral stent placement Status post laser lithotripsy of ureteral calculus History of prior ablation treatment Right LE in January 2020 and left LE 04/18/20 History of partial gastrectomy History of sinus surgery History of tonsillectomy and adenoidectomy History of total abdominal hysterectomy and bilateral salpingo-oophorectomy History of cholecystectomy History of appendectomy History of open reduction and internal fixation (ORIF) procedure left wrist + manipulation (01/2018) and I&D (10/2019) History of joint replacement Rt thumb History of knee replacement procedure of right knee History of esophagogastroduodenoscopy (EGD) History of colonoscopy History of gastrointestinal surgery multiple History of cardiac cath 08/2019 ([facility])- essentially normal coronary arteries angiographically, no stents Family History Mother Family history of diabetes mellitus Sister Family history of diabetes mellitus Family history of breast cancer Father Esophageal cancer Other Family history non-contributory No family history of adverse response to anesthesia Social History Smoking Status: Never smoker Second Hand Exposure: No; Do You Dip or Chew Tobacco: No; Tobacco Cessation Education Requested by Patient: No Hx Alcohol Use: Yes Alcohol type: beer Hx Substance Use: No Preferred Language: Trinidadian Communication Ability: Effective Visual Impairment: No Limitations Call Center Receptionist Required: No Beliefs That Will Affect Care: None marital status: Single Current Living Situation: Personal Care Facility Current Living Situation Comment: apartment at [facility] in [place]/ had aid How many Children do You have: 0 Feels Safe at Home: Yes Safety Concerns: Feels Safe At This Time Assistive Devices: Walker Review of Systems All other ROS were negative Physical Exam Physical exam limited Midline in place Results & Data Vital Signs (Past 12 Hours) Vital Signs Temp Pulse Resp BP BP Pulse Ox O2 Del Method 12/04/23 07:41 36.9 C 79 17 115/68 Room Air 12/04/23 07:03 88 18 94 Room Air 12/04/23 03:34 36.8 C 73 18 135/80 93 Room Air Laboratory Results Abnormal Lab Results 12/04/23 07:36 Sodium 145 Potassium 3.2 L Chloride 114 H Carbon Dioxide 20 L Anion Gap 11 BUN 13 Creatinine 0.66 Est Cr Clr Drug Dosing 64.6 Est GFR ( Amer) 103.0 Est GFR (Non-Af Amer) 88.9 BUN/Creatinine Ratio 19.7 Glucose 120 H Calcium 7.3 L Phosphorus 2.8 D Magnesium 1.7 Diagnostic Findings CXR: Cardiomegaly without radiographic evidence of congestive failure. 2. There is bibasilar consolidation. Correlate clinically for evidence of pneumonia/aspiration pneumonitis. Radiographic follow-up to resolution is recommended. CT head: No evidence of acute intracranial pathology. Ct abdomen: Diffuse coarse interstitial changes noted at the lung bases, new from the previous examination. New cylindrical bronchiectasis involving the inferior right middle lobe. Findings are greater than expected for subsegmental atelectasis which raises the concern for subtle interstitial infection. 2. Stable postsurgical changes consistent with distal gastrectomy. No evidence for bowel obstruction. Evaluation the bowel mucosa is limited without contrast; however, no obvious asymmetry noted. Several of the small bowel loops remain immediately deep to the skin surface in the region of the patulous defect involving the ventral abdominal wall. No pneumatosis or pneumoperitoneum. CT chest: Consolidations in bilateral lung bases along the bronchovascular pathways most concerning for an infectious etiology. Medications Administered Home Medications Medication Instructions Recorded Confirmed Last Taken colesevelam 625 mg tablet (WelChol) 625 mg PO TID 06/17/18 11/29/23 11/29/23 08:00 montelukast 10 mg tablet 10 mg PO HS 06/17/18 11/29/23 11/28/23 (Singulair) ipratropium 0.5 mg-albuterol 3 mg 3 ml inhalation Q4H PRN Shortness 05/05/19 11/29/23 11/10/23 (2.5 mg base)/3 mL nebulization Of Breath Or Wheezing soln ztiwto-vdmmavll-xcqxogb 4 cap PO TID 05/05/19 11/29/23 11/29/23 08:00 24,000-76,000-120,000 unit capsule,delayed rel (Creon) omeprazole magnesium 20 mg 20 mg PO BID 05/17/19 11/29/23 11/29/23 08:00 tablet,delayed release (Prilosec OTC) metolazone 2.5 mg tablet 2.5 mg PO WK 11/15/22 11/29/23 11/26/23 oxycodone-acetaminophen 5 mg-325 1 tab PO Q6H PRN Pain 11/15/22 11/29/23 Unknown mg tablet (Percocet) ropinirole 0.5 mg tablet 0.5 mg PO HS 11/15/22 11/29/23 11/28/23 valacyclovir 500 mg tablet 500 mg PO QAM 11/15/22 11/29/23 11/29/23 calcitriol 0.5 mcg capsule 0.5 mcg PO BID #60 caps 12/21/22 11/29/23 11/29/23 08:00 albuterol sulfate 90 mcg/actuation 2 inh inhalation Q6H PRN Shortness 02/03/23 11/29/23 11/10/23 breath activated powder inhaler Of Breath Or Wheezing #1 ea levothyroxine 88 mcg tablet 88 mcg PO QAM #30 tabs 05/21/23 11/29/23 11/29/23 cyanocobalamin (vitamin B-12) 1,000 mcg PO DAILY 05/24/23 11/29/23 11/29/23 1,000 mcg tablet (Vitamin B-12) nitroglycerin 0.4 mg sublingual 0.4 mg sublingual DIRECTED PRN 05/24/23 11/29/23 Unknown tablet (Nitrostat) Chest Pain cetirizine 10 mg tablet 10 mg PO DAILY PRN Allergy Symptoms 05/29/23 11/29/23 10/30/23 torsemide 20 mg tablet 20 mg PO BID 06/24/23 11/29/23 11/29/23 08:00 calcium carbonate 600 mg calcium 1,200 mg PO TID 07/22/23 11/29/23 11/29/23 08:00 (1,500 mg) tablet (Calcium) denosumab 60 mg/mL subcutaneous 60 mg subcut Q180D #1 mL 07/22/23 11/29/23 08/11/23 syringe (Prolia) fluticasone furoate 200 1 inh inhalation QAM 10/30/23 11/29/23 11/29/23 mcg-vilanterol 25 mcg/dose inhalation powder (Breo Ellipta) kdjtlhkdrftz-xjyvgzio-nnbqrk tablet 1 tab PO DAILY 10/30/23 11/29/23 11/29/23 rosuvastatin 10 mg tablet 10 mg PO QAM 10/30/23 11/29/23 11/29/23 diphenhydramine-zinc acetate 2 1 applic EXT QID PRN itching #30 11/04/23 11/29/23 Unknown %-0.1 % topical cream (Anti-Itch grams (diphenhydramine) with Zinc) potassium chloride 20 mEq 20 meq PO TID #90 tabs 11/04/23 11/29/23 11/29/23 08:00 tablet,extended release(part/cryst) topiramate 25 mg tablet 25 mg PO HS #54 tabs 11/04/23 11/29/23 11/28/23 vibegron 75 mg tablet (Gemtesa) 75 mg PO QAM 11/06/23 11/29/23 11/29/23 pregabalin 100 mg capsule 100 mg PO TID 30 days #90 caps 11/09/23 11/29/23 11/29/23 08:00 lamotrigine 25 mg tablet See Rx Instructions .Route .COMPLEX 11/29/23 11/29/23 11/29/23 08:00 potassium citrate 15 mEq (1,620 15 meq PO BID 11/29/23 11/29/23 11/29/23 08:00 mg) tablet,extended release Active Medications Generic Name Dose Route Start Last Admin Trade Name Freq PRN Reason Stop Dose Admin Acetaminophen 650 mg 11/30/23 01:09 12/01/23 11:54 Acetaminophen 325 Mg Tab PO 12/30/23 01:08 650 mg Q4H PRN Administration Pain or Fever Cetirizine HCl 10 mg 11/30/23 03:34 12/03/23 08:28 Cetirizine Hcl 10 Mg Tablet PO 12/30/23 03:33 10 mg DAILY PRN Administration Allergy Symptoms Cyanocobalamin 1,000 mcg 11/30/23 09:00 12/04/23 11:37 Cyanocobalamin (B-12) 500 Mcg Tablet PO 12/30/23 08:59 1,000 mcg DAILY CATE Administration Fluticasone/Vilanterol 1 puffs 11/30/23 09:00 12/04/23 11:38 Fluticasone/Vilanterol 200/25mcg 14 Puffs/Inhaler INH 12/30/23 08:59 1 puffs QAM CATE Administration Heparin Sodium (Porcine) 5,000 units 11/30/23 06:00 12/04/23 06:06 Heparin Sod 5,000 Unit/0.5 Ml Vial SQ 12/30/23 05:59 5,000 units Q8 CATE Administration Hydroxyzine HCl 10 mg 12/01/23 23:10 12/01/23 23:49 Hydroxyzine Hcl 10 Mg Tab PO 12/31/23 23:09 10 mg QID PRN Administration Anxiety Vancomycin HCl 1,000 mg/ 270 mls @ 200 mls/hr 12/04/23 06:00 12/04/23 06:09 Sodium Chloride IV 12/10/23 17:59 200 mls/hr Q18H CATE Administration Ipratropium [place] 0.5 mg 11/30/23 07:00 12/04/23 10:39 Ipratropium [place] Neb Soln 0.02% 0.5mg/2.5ml Vial INH 12/30/23 06:59 Not Given QIDR CATE Lactobacillus Acidophilus 2 cap 11/30/23 09:00 12/04/23 11:38 Advanced Probiotic 1250 Mg Capsule PO 12/30/23 08:59 2 cap DAILY CATE Administration Lamotrigine 25 mg 12/02/23 21:00 12/04/23 11:38 Lamotrigine 25 Mg Tab PO 01/01/24 20:59 25 mg BID CATE Administration Protocol Levalbuterol HCl 1.25 mg 11/30/23 07:00 12/04/23 10:39 Levalbuterol 1.25 Mg/3 Ml Neb NEB 12/30/23 06:59 Not Given QIDR CATE Levothyroxine Sodium 88 mcg 11/30/23 06:30 12/03/23 08:29 Levothyroxine Sodium 88 Mcg Tablet PO 12/30/23 06:29 88 mcg DAILYBB CATE Administration Midodrine 2.5 mg 11/30/23 05:10 12/04/23 11:37 Midodrine Hcl 2.5 Mg Tab PO 12/30/23 05:09 2.5 mg TID@0800,1200,1700 CATE Administration Miscellaneous 1 each 11/30/23 08:00 12/04/23 11:37 Order Awaiting Action: Colesevelam [Welchol] 625 Mg Tablet N/A 12/30/23 07:59 Not Given QS [facility] Multivitamins/Minerals 1 tab 11/30/23 09:00 12/04/23 11:38 Cerovite Adv Formula Tab PO 12/30/23 08:59 1 tab DAILY CATE Administration Ondansetron HCl 4 mg 12/01/23 12:08 12/01/23 23:52 Ondansetron Inj 2 Mg/Ml 2 Ml Vial IV 12/31/23 12:07 4 mg Q6H PRN Administration Nausea And Vomiting Prednisone 40 mg 12/01/23 09:00 12/04/23 11:38 Prednisone 20 Mg Tab PO 12/05/23 08:59 40 mg DAILY CATE Administration Valacyclovir HCl 500 mg 11/30/23 09:00 12/04/23 11:38 Valacyclovir Hcl 500 Mg Tablet PO 12/30/23 08:59 500 mg QAM CATE Administration Vibegron 75 mg 11/30/23 09:00 12/04/23 11:39 Vibegron 75 Mg Tab PO 12/30/23 08:59 75 mg QAM CATE Administration
[2023-12-04 15:37] LABS: BUN Creatinine Ratio 16.9 (10-20); Calcium 7.4 mg/dl (8.6-10.3); Creatinine Clr Calc Pharmacy 60.1 ml/min; Est GFR (African American) 99.3 ml/min; Est GFR (Non-African American) 85.7 ml/min; Potassium 3.5 mmol/L (3.5-5.1)
[2023-12-04] MEDS: LEVALBUTEROL 1.25 MG/3 ML NEB NEB SCH (19:52)
[2023-12-04] MEDS: IPRATROPIUM BROMIDE NEB SOLN 0.02% 0.5MG/2.5ML VIAL INH SCH (19:52)
[2023-12-04] MEDS: MELATONIN 3 MG TAB PO PRN (20:25)
[2023-12-05 07:15] LABS: Hematocrit (blood only) 33.9 % (37.0-47.0); Hemoglobin 11.4 g/dl (12.0-16.0); Mean Corpuscular Hemoglobin 27.9 pg (25.0-34.0); Mean Corpuscular Hgb Conc 33.6 g/dL (32.0-36.0); Mean Corpuscular Volume 83.1 fL (80.0-100.0); Mean Platelet Volume 9.6 fL (9.4-12.4); Platelet Count 255 K/uL (130-400); RDW Standard Deviation 48.2 fL (36.4-46.3); Red Blood Count 4.08 M/uL (4.20-5.40); White Blood Count 7.98 K/ul (4.8-10.8)
[2023-12-05 07:29] LABS: BUN Creatinine Ratio 20.3 (10-20); Calcium 6.8 mg/dl (8.6-10.3); Creatinine Clr Calc Pharmacy 73.8 ml/min; Est GFR (African American) 106.9 ml/min; Est GFR (Non-African American) 92.2 ml/min; Magnesium 1.6 mg/dl (1.7-2.4); Potassium 3.1 mmol/L (3.5-5.1)
--- NOTE | 2023-12-05 07:51 | Hospitalist Progress Note ---
Date of Service December 05, 2023 Assessment & Plan (1) Encephalopathy: Plan: Ms Braswell is a 73 year old woman with medical history significant for chronic diastolic heart failure (EF 55 to 60%, TTE 2022), sinus node dysfunction sp PPM, asthma/COPD/ILD, LARRY, pulmonary hypertension, CKDIII (baseline creatinine 1.3), history of gastric bypass, hyperparathyroidism as per records, hypothyroidism, ankylosing spondylitis as per records, chronic anemia (baseline hemoglobin of 11), recurrent UTIs (ESBL E. coli infection), urolithiasis, history pancreatic insufficiency/malabsorption, mood/anxiety disorder, chronic pain/neuropathy who is admitted for evaluation of encephalopathy. Patient was found down on 11/29 and brought to ED. Notable issue with 1 week of diarrhea preceding admission. Patient's encephalopathy appears resolved. Episode of tremulousness and anxiety in the evening which have resolved as well. Patient with MRSA nare + and staph in sputum, as well as developing opacities on imaging. Continuing with [facility]. ID consulted- MRSA Patient refuses rehab. Plan for discharge to home with home health. Multiple attempts have been made to encourage patient to reconsider rehab, however patient became tearful and angry. Patient attempting to move more in room, but is full assist at this time. #Hypokalemia #hypomagnesemia iso ongoing diarrheal illness Replete electrolytes as needed Monitor #Hypernatremia *resolved -Poor PO intake and diarrhea, increased insensible losses -2.4L FWD, D5W held in hope to encourage intake -Encourage PO intake #Acute metabolic encephalopathy *resolved Multifactorial: Multifocal pneumonia, possible aspiration,UTI, Rhabdo Multiple viral infections on going, rhabdo CT with consolidations noted, improving with IVF and IV abx -Treat as follows #Acute hypoxic respiratory failure *improving #superimposed staph pneumoniae #COPD/ILD exacerbation secondary to HCAP/coronavirus OC43 #Recurrent UTI (H/O ESBL) --CT head:No evidence of acute intracranial pathology. --CT chest:Consolidations in bilateral lung bases along the bronchovascular pathways most concerning for an infectious etiology. -- BioFire positive for coronavirus OC43 --Normal ammonia --Elevated procalcitonin -- Blood culture negative to date --Urine culture NGTD --Discontinue Zosyn -MRSA +, sputum + staph -Infectious disease consult given MRSA nares + and staph/MRSA in sputum -Vancomycin in interim, follow up with ID consult -Continue, plan for 5-7 days for staph, day 3 Completed prednisone, EOT 12/04 Continue Nebs Advance diet Continue home inhalers Transition to p.o. antibiotics as able #Traumatic rhabdomyolysis *resolved #Mechanical fall CK [id number] Discontinue IVF #Acute Diarrhea 2/2 Norovirus gastroenteritis *improving Secondary to norovirus infection Stool negative for C. difficile Monitor volume status IV fluids as needed GI consult--continue conservative, viral enteritis maybe post enteritis IBS -OP follow up #Troponin elevation resolved Likely due to Rhabdo, demand ischemia Monitor #Recurrent falls likely secondary to orthostasis BP relatively low monitor on tele Started on midodrine, new hold parameters (SBP >130) --Increased to 5mg TID #sinus node dysfunction sp PPM Monitor on tele #Chronic diastolic heart failure h/o Pulmonary hypertension Monitor volume status Hold diuretics on hold: metolazone 2.5mg weekly, torsemide 20mg BID #LARRY Noncompliant with BiPAP #CKD III Monitor renal function Avoid nephrotoxic agents as able Other chronic conditions: H/O gastric bypass chronic anemia, Hb at baseline Hypothyroidism--continue levothyroxine Possible functional disability given recurrent admissions/compliance issues DVT Px: Heparin SQ Code Status Full code Disposition PT OT rehab at [facility]--patient declined at this time, awaiting final recommendations Admission and Anticipated Discharge Date Admission Date: November 30, 2023 Subjective Patient evaluated in bedside chair Reports she wants to try to move more and feels better Notes diarrhea is almost gone, still some looser stool Physical Exam Constitutional: WD/WN, vitals as above Respiratory: normal respiratory effort, lungs clear to auscultation Cardiovascular: RRR, no murmur, no edema Results & Data Results & Data Vital Signs (Past 12 Hours) Vital Signs Temp Pulse Pulse Resp BP Pulse Ox O2 Del Method 12/05/23 07:37 37.1 C 71 20 136/73 91 Room Air 12/05/23 02:42 36.6 C 74 18 145/79 H 92 Room Air 12/04/23 22:56 36.5 C 78 19 122/85 97 Room Air 12/04/23 22:00 72 12/04/23 20:00 Room Air 12/04/23 20:00 36.7 C 84 16 125/78 96 Room Air 12/04/23 19:53 66 18 94 Room Air Laboratory Results Short CBC 12/05/23 Range/Units 06:24 WBC 7.98 (4.8-10.8) K/ul Hgb 11.4 L (12.0-16.0) g/dl Hct 33.9 L (37.0-47.0) % Plt Count 255 (130-400) K/uL BMP 12/04/23 12/04/23 12/05/23 07:36 14:54 06:24 Sodium 145 142 145 Potassium 3.2 L 3.5 3.1 L Chloride 114 H 113 H 115 H Carbon Dioxide 20 L 19 L 21 BUN 13 12 12 Creatinine 0.66 0.71 0.59 L Glucose 120 H 157 H 89 Calcium 7.3 L 7.4 L 6.8 L Medications Administered Home Medications Medication Instructions Recorded Confirmed Last Taken colesevelam 625 mg tablet (WelChol) 625 mg PO TID 06/17/18 11/29/23 11/29/23 08:00 montelukast 10 mg tablet 10 mg PO HS 06/17/18 11/29/23 11/28/23 (Singulair) ipratropium 0.5 mg-albuterol 3 mg 3 ml inhalation Q4H PRN Shortness 05/05/19 11/29/23 11/10/23 (2.5 mg base)/3 mL nebulization Of Breath Or Wheezing soln lsjwxa-miggnmld-fuidxyl 4 cap PO TID 05/05/19 11/29/23 11/29/23 08:00 24,000-76,000-120,000 unit capsule,delayed rel (Creon) omeprazole magnesium 20 mg 20 mg PO BID 05/17/19 11/29/23 11/29/23 08:00 tablet,delayed release (Prilosec OTC) metolazone 2.5 mg tablet 2.5 mg PO WK 11/15/22 11/29/23 11/26/23 oxycodone-acetaminophen 5 mg-325 1 tab PO Q6H PRN Pain 11/15/22 11/29/23 Unknown mg tablet (Percocet) ropinirole 0.5 mg tablet 0.5 mg PO HS 11/15/22 11/29/23 11/28/23 valacyclovir 500 mg tablet 500 mg PO QAM 11/15/22 11/29/23 11/29/23 calcitriol 0.5 mcg capsule 0.5 mcg PO BID #60 caps 12/21/22 11/29/23 11/29/23 08:00 albuterol sulfate 90 mcg/actuation 2 inh inhalation Q6H PRN Shortness 02/03/23 11/29/23 11/10/23 breath activated powder inhaler Of Breath Or Wheezing #1 ea levothyroxine 88 mcg tablet 88 mcg PO QAM #30 tabs 05/21/23 11/29/23 11/29/23 cyanocobalamin (vitamin B-12) 1,000 mcg PO DAILY 05/24/23 11/29/23 11/29/23 1,000 mcg tablet (Vitamin B-12) nitroglycerin 0.4 mg sublingual 0.4 mg sublingual DIRECTED PRN 05/24/23 11/29/23 Unknown tablet (Nitrostat) Chest Pain cetirizine 10 mg tablet 10 mg PO DAILY PRN Allergy Symptoms 05/29/23 11/29/23 10/30/23 torsemide 20 mg tablet 20 mg PO BID 06/24/23 11/29/23 11/29/23 08:00 calcium carbonate 600 mg calcium 1,200 mg PO TID 07/22/23 11/29/23 11/29/23 08:00 (1,500 mg) tablet (Calcium) denosumab 60 mg/mL subcutaneous 60 mg subcut Q180D #1 mL 07/22/23 11/29/23 08/11/23 syringe (Prolia) fluticasone furoate 200 1 inh inhalation QAM 10/30/23 11/29/23 11/29/23 mcg-vilanterol 25 mcg/dose inhalation powder (Breo Ellipta) hwqnnqmlvosq-wwbfsnmb-zeheba tablet 1 tab PO DAILY 10/30/23 11/29/23 11/29/23 rosuvastatin 10 mg tablet 10 mg PO QAM 10/30/23 11/29/23 11/29/23 diphenhydramine-zinc acetate 2 1 applic EXT QID PRN itching #30 11/04/23 11/29/23 Unknown %-0.1 % topical cream (Anti-Itch grams (diphenhydramine) with Zinc) potassium chloride 20 mEq 20 meq PO TID #90 tabs 11/04/23 11/29/23 11/29/23 08:00 tablet,extended release(part/cryst) topiramate 25 mg tablet 25 mg PO HS #54 tabs 11/04/23 11/29/23 11/28/23 vibegron 75 mg tablet (Gemtesa) 75 mg PO QAM 11/06/23 11/29/23 11/29/23 pregabalin 100 mg capsule 100 mg PO TID 30 days #90 caps 11/09/23 11/29/23 11/29/23 08:00 lamotrigine 25 mg tablet See Rx Instructions .Route .COMPLEX 11/29/23 11/29/23 11/29/23 08:00 potassium citrate 15 mEq (1,620 15 meq PO BID 11/29/23 11/29/23 11/29/23 08:00 mg) tablet,extended release Active Medications Generic Name Dose Route Start Last Admin Trade Name Freq PRN Reason Stop Dose Admin Acetaminophen 650 mg 11/30/23 01:09 12/04/23 20:24 Acetaminophen 325 Mg Tab PO 12/30/23 01:08 650 mg Q4H PRN Administration Pain or Fever Cetirizine HCl 10 mg 11/30/23 03:34 12/03/23 08:28 Cetirizine Hcl 10 Mg Tablet PO 12/30/23 03:33 10 mg DAILY PRN Administration Allergy Symptoms Cyanocobalamin 1,000 mcg 11/30/23 09:00 12/04/23 11:37 Cyanocobalamin (B-12) 500 Mcg Tablet PO 12/30/23 08:59 1,000 mcg DAILY CATE Administration Duloxetine HCl 30 mg 12/04/23 09:00 12/04/23 09:30 Duloxetine Hcl 30 Mg Cap PO 01/03/24 08:59 30 mg QAM CATE Administration Fluticasone/Vilanterol 1 puffs 11/30/23 09:00 12/04/23 11:38 Fluticasone/Vilanterol 200/25mcg 14 Puffs/Inhaler INH 12/30/23 08:59 1 puffs QAM CATE Administration Heparin Sodium (Porcine) 5,000 units 11/30/23 06:00 12/04/23 21:35 Heparin Sod 5,000 Unit/0.5 Ml Vial SQ 12/30/23 05:59 5,000 units Q8 CATE Administration Hydroxyzine HCl 10 mg 12/01/23 23:10 12/01/23 23:49 Hydroxyzine Hcl 10 Mg Tab PO 12/31/23 23:09 10 mg QID PRN Administration Anxiety Vancomycin HCl 1,000 mg/ 270 mls @ 200 mls/hr 12/04/23 06:00 12/05/23 01:20 Sodium Chloride IV 12/10/23 17:59 Infused Q18H CATE Infusion Ipratropium [place] 0.5 mg 12/04/23 19:00 12/04/23 19:52 Ipratropium [place] Neb Soln 0.02% 0.5mg/2.5ml Vial INH 01/03/24 18:59 0.5 mg BIDR CATE Administration Lactobacillus Acidophilus 2 cap 11/30/23 09:00 12/04/23 11:38 Advanced Probiotic 1250 Mg Capsule PO 12/30/23 08:59 2 cap DAILY CATE Administration Lamotrigine 25 mg 12/02/23 21:00 12/04/23 20:26 Lamotrigine 25 Mg Tab PO 01/01/24 20:59 25 mg BID CATE Administration Protocol Levalbuterol HCl 1.25 mg 12/04/23 19:00 12/04/23 19:52 Levalbuterol 1.25 Mg/3 Ml Neb NEB 01/03/24 18:59 1.25 mg BIDR CATE Administration Levothyroxine Sodium 88 mcg 11/30/23 06:30 12/03/23 08:29 Levothyroxine Sodium 88 Mcg Tablet PO 12/30/23 06:29 88 mcg DAILYBB CATE Administration Melatonin 3 mg 12/02/23 01:53 12/04/23 20:25 Melatonin 3 Mg Tab PO 01/01/24 01:52 3 mg HS PRN Administration Sleep Midodrine 2.5 mg 11/30/23 05:10 12/04/23 18:34 Midodrine Hcl 2.5 Mg Tab PO 12/30/23 05:09 2.5 mg TID@0800,1200,1700 CATE Administration Miscellaneous 1 each 11/30/23 08:00 12/05/23 06:21 Order Awaiting Action: Colesevelam [Welchol] 625 Mg Tablet N/A 12/30/23 07:59 Not Given QS CATE Multivitamins/Minerals 1 tab 11/30/23 09:00 12/04/23 11:38 Cerovite Adv Formula Tab PO 12/30/23 08:59 1 tab DAILY CATE Administration Ondansetron HCl 4 mg 12/01/23 12:08 12/01/23 23:52 Ondansetron Inj 2 Mg/Ml 2 Ml Vial IV 12/31/23 12:07 4 mg Q6H PRN Administration Nausea And Vomiting Potassium Phosphate 1 tab 12/04/23 13:00 12/04/23 20:26 Pot Phosphate Monobasic W/ Sod Tab PO 01/03/24 12:59 1 tab QID CATE Administration Prednisone 40 mg 12/01/23 09:00 12/04/23 11:38 Prednisone 20 Mg Tab PO 12/05/23 08:59 40 mg DAILY CATE Administration Valacyclovir HCl 500 mg 11/30/23 09:00 12/04/23 11:38 Valacyclovir Hcl 500 Mg Tablet PO 12/30/23 08:59 500 mg QAM CATE Administration Vibegron 75 mg 11/30/23 09:00 12/04/23 11:39 Vibegron 75 Mg Tab PO 12/30/23 08:59 75 mg QAM CATE Administration
[2023-12-05] MEDS: MAGNESIUM SULFATE / D5W 1 GM/100 ML BAG IV SCH (08:57)
[2023-12-05] MEDS: POTASSIUM CHLORIDE CRTAB 20 MEQ TABCR PO SCH (09:01)
--- NOTE | 2023-12-05 10:32 | Pharmacy Report ---
Pharmacy PK ABX Note - Date of Service December 05, 2023 - Assessment and Plan Assessment 12/04 Sputum culture updated as MRSA. With trend downward in SCr , current dosing is now predicting just below target. Will empirically adjust dose today, obtain level tomorrow 73 year old F admitted 11/30/23 with acute hypoxic respiratory failure. Treated with pip-tazo 11/29 PM - . Vancomycin started on . Staph species growing in sputum culture, positive MRSA nasal. h/o CKD III, baseline Scr 1.3 mg/dL Plan Vancomycin * Loading dose: 1500 mg IV x 1 * Maintenance dose: 1000 mg IV every 18 hours * Regimen is predicted to be below target AUC/JOSE MIGUEL of 400-600 mg/L.hr * Adjust dose to 1000 mg IV every 12 hours * predicted AUC at steady state: 578 * predicted trough at steady state: ~17 mcg/mL * Random level tomorrow @ 1000 Pharmacy will continue to follow and will adjust dose/frequency as necessary. Thank you.
[2023-12-05] MEDS: CALCIUM 600MG + VIT D 400 IU TAB PO SCH (11:23)
[2023-12-05] MEDS: VANCOMYCIN HCL 1,000 MG in SODIUM CHLORIDE 0.9% 250 ML IV SCH (11:34)
[2023-12-05] MEDS: MIDODRINE HCL 2.5 MG TAB PO SCH (17:00)
[2023-12-06 07:00] LABS: Hematocrit (blood only) 34.7 % (37.0-47.0); Hemoglobin 11.2 g/dl (12.0-16.0); Mean Corpuscular Hemoglobin 28.1 pg (25.0-34.0); Mean Corpuscular Hgb Conc 32.3 g/dL (32.0-36.0); Mean Platelet Volume 9.8 fL (9.4-12.4); Platelet Count 272 K/uL (130-400); RDW Coefficient of Variation 16.4 % (11.5-14.5); RDW Standard Deviation 50.9 fL (36.4-46.3); Red Blood Count 3.99 M/uL (4.20-5.40); White Blood Count 7.33 K/ul (4.8-10.8)
[2023-12-06 07:49] LABS: Calcium 6.9 mg/dl (8.6-10.3); Creatinine Clr Calc Pharmacy 71.4 ml/min; Est GFR (African American) 105.7 ml/min; Est GFR (Non-African American) 91.2 ml/min; Magnesium 2.1 mg/dl (1.7-2.4); Phosphorus 3.3 mg/dl (2.5-4.9); Potassium 4.1 mmol/L (3.5-5.1)
[2023-12-06] MEDS: VANCOMYCIN LEVEL ONE (10:16)
[2023-12-06] MEDS ORDERED: STAT IV/IM STA (11:46)
--- NOTE | 2023-12-06 11:46 | Pharmacy Report ---
Pharmacy PK ABX Note - Date of Service December 06, 2023 - Assessment and Plan Assessment 12/05: Random level 19.7 mcg/ml, predict achievement of target AUC/JOSE MIGUEL with next few doses, but will be above target at steady state. Will adjust dose down with 0000 dose tonight. 12/04 Sputum culture updated as MRSA. With trend downward in SCr , current dosing is now predicting just below target. Will empirically adjust dose today, obtain level tomorrow 73 year old F admitted 11/30/23 with acute hypoxic respiratory failure. Treated with pip-tazo 11/29 PM - . Vancomycin started on . Staph species growing in sputum culture, positive MRSA nasal. h/o CKD III, baseline Scr 1.3 mg/dL Plan Vancomycin * Loading dose: 1500 mg IV x 1 * Maintenance dose: 1000 mg IV every 12 hours * Regimen is predicted to be above target AUC/JOSE MIGUEL of 400-600 mg/L.hr at steady state, but within range for next dose * Adjust dose to 750 mg IV every 12 hours * predicted AUC at steady state: 507 * predicted trough at steady state: ~15.6 mcg/mL * Random level to be ordered in 1-2 days Pharmacy will continue to follow and will adjust dose/frequency as necessary. Thank you.
--- NOTE | 2023-12-06 11:52 | Hospitalist Progress Note ---
Date of Service December 06, 2023 Assessment & Plan (1) Encephalopathy: Plan: Ms Braswell is a 73 year old woman with medical history significant for chronic diastolic heart failure (EF 55 to 60%, TTE 2022), sinus node dysfunction sp PPM, asthma/COPD/ILD, LARRY, pulmonary hypertension, CKDIII (baseline creatinine 1.3), history of gastric bypass, hyperparathyroidism as per records, hypothyroidism, ankylosing spondylitis as per records, chronic anemia (baseline hemoglobin of 11), recurrent UTIs (ESBL E. coli infection), urolithiasis, history pancreatic insufficiency/malabsorption, mood/anxiety disorder, chronic pain/neuropathy who is admitted for evaluation of encephalopathy. Patient was found down on 11/29 and brought to ED. Notable issue with 1 week of diarrhea preceding admission. Patient's encephalopathy appears resolved. Episode of tremulousness and anxiety in the evening which have resolved as well. Patient with MRSA nare + and staph in sputum, as well as developing opacities on imaging. Continuing with [facility]. ID consulted- MRSA As of 12/04, patient refused rehab. Plan for discharge to home with home health. Multiple attempts have been made to encourage patient to reconsider rehab, however patient became tearful and angry. Patient attempting to move more in room, but is full assist at this time. Discussion with sister on phone revealed patient is consistently falling and being found in precarious situations. #Hypokalemia #hypomagnesemia iso ongoing diarrheal illness Replete electrolytes as needed Monitor #Hypernatremia *uptrending -Poor PO intake and diarrhea, increased insensible losses -2.4L FWD, D5W held in hope to encourage intake, poor intake noted---resume D5W -Encourage PO intake #Hypocalcemia #Chronic nephrolithasis #Secondary hyperparathyroidism -Resume home potassium citrate -Resume home calcitrol and ca supplementation IV calcium now pth in am #Acute hypoxic respiratory failure *improving #superimposed staph pneumoniae #COPD/ILD exacerbation secondary to HCAP/coronavirus OC43 #Recurrent UTI (H/O ESBL) --CT head:No evidence of acute intracranial pathology. --CT chest:Consolidations in bilateral lung bases along the bronchovascular pathways most concerning for an infectious etiology. -- BioFire positive for coronavirus OC43 --Normal ammonia --Elevated procalcitonin -- Blood culture negative to date --Urine culture NGTD --Discontinue Zosyn -MRSA +, sputum + staph -Infectious disease consult given MRSA nares + and staph/MRSA in sputum -Vancomycin in interim, follow up with ID consult -Continue, plan for 5-7 days for staph, day 4 Completed prednisone, EOT 03/02 Continue Nebs Advance diet Continue home inhalers Likely to complete abx this admission #Hypotension #Recurrent falls likely secondary to orthostasis BP relatively low monitor on tele Started on midodrine, new hold parameters (SBP >130) --Continue to 5mg TID Cortisol in am now 48 hours post prednisone TSH in am B12 in am #Acute metabolic encephalopathy *resolved Multifactorial: Multifocal pneumonia, possible aspiration,UTI, Rhabdo Multiple viral infections on going, rhabdo CT with consolidations noted, improving with IVF and IV abx stable at this time #Acute Diarrhea 2/2 Norovirus gastroenteritis *improving #Malnutrition Secondary to norovirus infection Stool negative for C. difficile Monitor volume status IV fluids as needed GI consult--continue conservative, viral enteritis maybe post enteritis IBS -OP follow up Resume home pancreatic enzymes #Traumatic rhabdomyolysis *resolved #Mechanical fall CK [id number] #Troponin elevation resolved Likely due to Rhabdo, demand ischemia Monitor #sinus node dysfunction sp PPM Monitor on tele #Chronic diastolic heart failure h/o Pulmonary hypertension Monitor volume status Hold diuretics on hold: metolazone 2.5mg weekly, torsemide 20mg BID #LARRY Noncompliant with BiPAP #CKD III Monitor renal function Avoid nephrotoxic agents as able Other chronic conditions: H/O gastric bypass chronic anemia, Hb at baseline Hypothyroidism--continue levothyroxine Possible functional disability given recurrent admissions/compliance issues DVT Px: Heparin SQ Code Status Full code Disposition PT OT rehab at [facility]--patient declined at this time, awaiting final recommendations Admission and Anticipated Discharge Date Admission Date: November 30, 2023 Subjective Patient evaluated at bedside. Agreeable to rehab. Patient states diarrhea notably improved, however, visibly upset over decision for rehab at this time Physical Exam Constitutional: WD/WN, vitals as above Respiratory: normal respiratory effort, lungs clear to auscultation Cardiovascular: RRR, no murmur, no edema Gastrointestinal (Abdomen): normal bowel sounds, soft, nontender, no hepatosplenomegaly Results & Data Results & Data Vital Signs (Past 12 Hours) Vital Signs Temp Pulse Pulse Resp BP BP Pulse Ox 12/06/23 11:05 36.8 C 90 19 95/63 L 97 12/06/23 08:27 12/06/23 08:03 37.0 C 84 19 111/66 93 12/06/23 08:00 66 12/06/23 07:25 75 18 95 12/06/23 03:30 36.5 C 16 118/72 95 O2 Del Method 12/06/23 11:05 Room Air 12/06/23 08:27 Room Air 12/06/23 08:03 Room Air 12/06/23 08:00 12/06/23 07:25 Room Air 12/06/23 03:30 Room Air Laboratory Results Short CBC 12/06/23 Range/Units 06:29 WBC 7.33 (4.8-10.8) K/ul Hgb 11.2 L (12.0-16.0) g/dl Hct 34.7 L (37.0-47.0) % Plt Count 272 (130-400) K/uL BMP 12/06/23 06:29 Sodium 147 H Potassium 4.1 D Chloride 120 H Carbon Dioxide 22 BUN 11 Creatinine 0.61 Glucose 95 Calcium 6.9 L Medications Administered Home Medications Medication Instructions Recorded Confirmed Last Taken colesevelam 625 mg tablet (WelChol) 625 mg PO TID 06/17/18 11/29/23 11/29/23 08:00 montelukast 10 mg tablet 10 mg PO HS 06/17/18 11/29/23 11/28/23 (Singulair) ipratropium 0.5 mg-albuterol 3 mg 3 ml inhalation Q4H PRN Shortness 05/05/19 11/29/23 11/10/23 (2.5 mg base)/3 mL nebulization Of Breath Or Wheezing soln [id number]-[id number]-[id number] 4 cap PO TID 05/05/19 11/29/23 11/29/23 08:00 24,000-76,000-120,000 unit capsule,delayed rel (Creon) omeprazole magnesium 20 mg 20 mg PO BID 05/17/19 11/29/23 11/29/23 08:00 tablet,delayed release (Prilosec OTC) metolazone 2.5 mg tablet 2.5 mg PO WK 11/15/22 11/29/23 11/26/23 oxycodone-acetaminophen 5 mg-325 1 tab PO Q6H PRN Pain 11/15/22 11/29/23 Unknown mg tablet (Percocet) ropinirole 0.5 mg tablet 0.5 mg PO HS 11/15/22 11/29/23 11/28/23 valacyclovir 500 mg tablet 500 mg PO QAM 11/15/22 11/29/23 11/29/23 calcitriol 0.5 mcg capsule 0.5 mcg PO BID #60 caps 12/21/22 11/29/23 11/29/23 08:00 albuterol sulfate 90 mcg/actuation 2 inh inhalation Q6H PRN Shortness 02/03/23 11/29/23 11/10/23 breath activated powder inhaler Of Breath Or Wheezing #1 ea levothyroxine 88 mcg tablet 88 mcg PO QAM #30 tabs 05/21/23 11/29/23 11/29/23 cyanocobalamin (vitamin B-12) 1,000 mcg PO DAILY 05/24/23 11/29/23 11/29/23 1,000 mcg tablet (Vitamin B-12) nitroglycerin 0.4 mg sublingual 0.4 mg sublingual DIRECTED PRN 05/24/23 11/29/23 Unknown tablet (Nitrostat) Chest Pain cetirizine 10 mg tablet 10 mg PO DAILY PRN Allergy Symptoms 05/29/23 11/29/23 10/30/23 torsemide 20 mg tablet 20 mg PO BID 06/24/23 11/29/23 11/29/23 08:00 calcium carbonate 600 mg calcium 1,200 mg PO TID 07/22/23 11/29/23 11/29/23 08:00 (1,500 mg) tablet (Calcium) denosumab 60 mg/mL subcutaneous 60 mg subcut Q180D #1 mL 07/22/23 11/29/23 08/11/23 syringe (Prolia) fluticasone furoate 200 1 inh inhalation QAM 10/30/23 11/29/23 11/29/23 mcg-vilanterol 25 mcg/dose inhalation powder (Breo Ellipta) [id number]-[id number]-[id number] tablet 1 tab PO DAILY 10/30/23 11/29/23 11/29/23 rosuvastatin 10 mg tablet 10 mg PO QAM 10/30/23 11/29/23 11/29/23 diphenhydramine-zinc acetate 2 1 applic EXT QID PRN itching #30 11/04/23 11/29/23 Unknown %-0.1 % topical cream (Anti-Itch grams (diphenhydramine) with Zinc) potassium chloride 20 mEq 20 meq PO TID #90 tabs 11/04/23 11/29/23 11/29/23 08:00 tablet,extended release(part/cryst) topiramate 25 mg tablet 25 mg PO HS #54 tabs 11/04/23 11/29/23 11/28/23 vibegron 75 mg tablet (Gemtesa) 75 mg PO QAM 11/06/23 11/29/23 11/29/23 pregabalin 100 mg capsule 100 mg PO TID 30 days #90 caps 11/09/23 11/29/23 11/29/23 08:00 lamotrigine 25 mg tablet See Rx Instructions .Route .COMPLEX 11/29/23 11/29/23 11/29/23 08:00 potassium citrate 15 mEq (1,620 15 meq PO BID 11/29/23 11/29/23 11/29/23 08:00 mg) tablet,extended release Active Medications Generic Name Dose Route Start Last Admin Trade Name Freq PRN Reason Stop Dose Admin Acetaminophen 650 mg 11/30/23 01:09 12/05/23 21:07 Acetaminophen 325 Mg Tab PO 12/30/23 01:08 650 mg Q4H PRN Administration Pain or Fever Cetirizine HCl 10 mg 11/30/23 03:34 12/03/23 08:28 Cetirizine Hcl 10 Mg Tablet PO 12/30/23 03:33 10 mg DAILY PRN Administration Allergy Symptoms Cyanocobalamin 1,000 mcg 11/30/23 09:00 12/06/23 09:42 Cyanocobalamin (B-12) 500 Mcg Tablet PO 12/30/23 08:59 1,000 mcg DAILY CATE Administration Duloxetine HCl 30 mg 12/04/23 09:00 12/06/23 09:41 Duloxetine Hcl 30 Mg Cap PO 01/03/24 08:59 30 mg QAM CATE Administration Fluticasone/Vilanterol 1 puffs 11/30/23 09:00 12/06/23 09:43 Fluticasone/Vilanterol 200/25mcg 14 Puffs/Inhaler INH 12/30/23 08:59 1 puffs QAM CATE Administration Heparin Sodium (Porcine) 5,000 units 11/30/23 06:00 12/06/23 06:39 Heparin Sod 5,000 Unit/0.5 Ml Vial SQ 12/30/23 05:59 5,000 units Q8 CATE Administration Hydroxyzine HCl 10 mg 12/01/23 23:10 12/05/23 21:06 Hydroxyzine Hcl 10 Mg Tab PO 12/31/23 23:09 10 mg QID PRN Administration Anxiety Vancomycin HCl 1,000 mg/ 270 mls @ 200 mls/hr 12/05/23 12:00 12/06/23 01:30 Sodium Chloride IV 12/06/23 18:00 Infused Q12H CATE Infusion Ipratropium [place] 0.5 mg 12/04/23 19:00 12/06/23 07:25 Ipratropium [place] Neb Soln 0.02% 0.5mg/2.5ml Vial INH 01/03/24 18:59 0.5 mg BIDR CATE Administration Lactobacillus Acidophilus 2 cap 11/30/23 09:00 12/06/23 09:44 Advanced Probiotic 1250 Mg Capsule PO 12/30/23 08:59 2 cap DAILY CATE Administration Lamotrigine 25 mg 12/02/23 21:00 12/06/23 09:45 Lamotrigine 25 Mg Tab PO 01/01/24 20:59 25 mg BID CATE Administration Protocol Levalbuterol HCl 1.25 mg 12/04/23 19:00 12/06/23 07:25 Levalbuterol 1.25 Mg/3 Ml Neb NEB 01/03/24 18:59 1.25 mg BIDR CATE Administration Levothyroxine Sodium 88 mcg 11/30/23 06:30 12/06/23 06:39 Levothyroxine Sodium 88 Mcg Tablet PO 12/30/23 06:29 88 mcg DAILYBB CAET Administration Melatonin 3 mg 12/02/23 01:53 12/05/23 21:05 Melatonin 3 Mg Tab PO 01/01/24 01:52 3 mg HS PRN Administration Sleep Midodrine 5 mg 12/05/23 17:00 12/06/23 09:42 Midodrine Hcl 2.5 Mg Tab PO 01/04/24 16:59 5 mg TID@0800,1200,1700 CATE Administration Miscellaneous 1 each 11/30/23 08:00 12/06/23 08:09 Order Awaiting Action: Colesevelam [Welchol] 625 Mg Tablet N/A 12/30/23 07:59 Not Given QS CATE Multivitamins/Minerals 1 tab 11/30/23 09:00 12/06/23 09:45 Cerovite Adv Formula Tab PO 12/30/23 08:59 1 tab DAILY CATE Administration Ondansetron HCl 4 mg 12/01/23 12:08 12/06/23 08:07 Ondansetron Inj 2 Mg/Ml 2 Ml Vial IV 12/31/23 12:07 4 mg Q6H PRN Administration Nausea And Vomiting Valacyclovir HCl 500 mg 11/30/23 09:00 12/06/23 09:41 Valacyclovir Hcl 500 Mg Tablet PO 12/30/23 08:59 500 mg QAM CATE Administration Vibegron 75 mg 11/30/23 09:00 12/06/23 09:41 Vibegron 75 Mg Tab PO 12/30/23 08:59 75 mg QAM CATE Administration
[2023-12-06] MEDS: CALCIUM CARBONATE 1250MG TAB PO SCH (13:16)
[2023-12-06] MEDS: POTASSIUM CITRATE 10 MEQ TAB PO SCH (13:16)
[2023-12-06] MEDS: DEXTROSE 5% 1,000 ML IV SCH (13:16)
[2023-12-06] MEDS: PANCREAZE (LIPASE 10,500U) CAP PO SCH (13:17)
[2023-12-06] MEDS: CALCITRIOL 0.25 MCG CAPSULE PO SCH (13:17)
[2023-12-06] MEDS: CALCIUM GLUCONATE 10% 1,000 MG in SODIUM CHLOR 0.9% MINI-B 50 ML IV SCH (13:20)
[2023-12-06] MEDS: PREGABALIN 100 MG CAP PO SCH (13:26)
[2023-12-06] MEDS: MONTELUKAST SODIUM 10 MG TABLET PO SCH (20:27)
[2023-12-06] MEDS: rOPINIRole HCL 0.25 MG TABLET PO SCH (20:32)
[2023-12-06] MEDS: VANCOMYCIN HCL 750 MG in SODIUM CHLORIDE 0.9% 250 ML IV SCH (23:13)
[2023-12-07 07:48] LABS: Hematocrit (blood only) 31.5 % (37.0-47.0); Hemoglobin 9.9 g/dl (12.0-16.0); Mean Corpuscular Hemoglobin 27.5 pg (25.0-34.0); Mean Corpuscular Hgb Conc 31.4 g/dL (32.0-36.0); Mean Corpuscular Volume 87.5 fL (80.0-100.0); Mean Platelet Volume 9.7 fL (9.4-12.4); Platelet Count 279 K/uL (130-400); RDW Coefficient of Variation 16.7 % (11.5-14.5); RDW Standard Deviation 51.1 fL (36.4-46.3); White Blood Count 8.39 K/ul (4.8-10.8)
[2023-12-07 07:57] LABS: BUN Creatinine Ratio 11.7 (10-20); Calcium 7.4 mg/dl (8.6-10.3); Creatinine Clr Calc Pharmacy 57.4 ml/min; Est GFR (Non-African American) 77.7 ml/min; Magnesium 1.7 mg/dl (1.7-2.4); Potassium 4.1 mmol/L (3.5-5.1)
[2023-12-07 08:11] LABS: Cortisol AM 12.28 mcg/dl (6.2-22.6)
[2023-12-07 08:13] LABS: Thyroid Stimulating Hormone 0.406 uIu/ml (0.300-4.500)
[2023-12-07 08:26] LABS: Vitamin B12 > 1500 pg/ml (180-914)
[2023-12-07] MEDS: ROSUVASTATIN CALCIUM 10 MG TAB PO SCH (08:50)
--- NOTE | 2023-12-07 10:16 | XRay Report ---
XR wrist RT min 3V routine CLINICAL HISTORY: s/p fall pain TECHNIQUE: 4 views of the right wrist were obtained. Comparison: Comparison is made to wrist radiograph 12/11/2022 FINDINGS: There is no evidence of an acute fracture. Joint spaces are well-preserved. No soft tissue abnormalit y is seen. IMPRESSION: No evidence of acute osseous injury. ACT 112: Negative or not required by law. Electronically signed by: Evan Ventura M.D. 12/07/2023 10:15 AM
[2023-12-07] MEDS: VANCOMYCIN LEVEL ONE (12:20)
--- NOTE | 2023-12-07 13:38 | Pharmacy Report ---
Pharmacy PK ABX Note - Date of Service December 07, 2023 - Assessment and Plan Assessment 12/06 Random level 21.6mcg/ML, level above goal AUC/JOSE MIGUEL, frequency adjusted 12/05: Random level 19.7 mcg/ml, predict achievement of target AUC/JOSE MIGUEL with next few doses, but will be above target at steady state. Will adjust dose down with 0000 dose tonight. 12/04 Sputum culture updated as MRSA. With trend downward in SCr , current dosing is now predicting just below target. Will empirically adjust dose today, obtain level tomorrow 73 year old F admitted 11/30/23 with acute hypoxic respiratory failure. Treated with pip-tazo 11/29 PM - . Vancomycin started on . Staph species growing in sputum culture, positive MRSA nasal. h/o CKD III, baseline Scr 1.3 mg/dL Plan Vancomycin * Maintenance dose: 750mg IV every 12 hours * Regimen is predicted to be above target AUC/JOSE MIGUEL of 400-600 mg/L.hr at steady state, but within range for next dose * Adjust dose to 750 mg IV every 18 hours * predicted AUC at steady state: 488 * predicted trough at steady state: ~14.8 mcg/mL * Random level to be ordered in 1-2 days Pharmacy will continue to follow and will adjust dose/frequency as necessary. Thank you.
[2023-12-07] MEDS: DICLOFENAC SOD 1% GEL 100 GM TUBE EXT SCH (13:51)
--- NOTE | 2023-12-07 14:36 | Hospitalist Progress Note ---
Date of Service December 07, 2023 Assessment & Plan (1) Encephalopathy: Plan: Ms Braswell is a 73 year old woman with medical history significant for chronic diastolic heart failure (EF 55 to 60%, TTE 2022), sinus node dysfunction sp PPM, asthma/COPD/ILD, LARRY, pulmonary hypertension, CKDIII (baseline creatinine 1.3), history of gastric bypass, hyperparathyroidism as per records, hypothyroidism, ankylosing spondylitis as per records, chronic anemia (baseline hemoglobin of 11), recurrent UTIs (ESBL E. coli infection), urolithiasis, history pancreatic insufficiency/malabsorption, mood/anxiety disorder, chronic pain/neuropathy who is admitted for evaluation of encephalopathy. Patient was found down on 11/29 and brought to ED. Notable issue with 1 week of diarrhea preceding admission. Patient's encephalopathy appears resolved. Episode of tremulousness and anxiety in the evening which have resolved as well. Patient with MRSA nare + and staph in sputum, as well as developing opacities on imaging. Continuing with [facility]. ID consulted- MRSA As of 12/04, patient refused rehab. Plan for discharge to home with home health. Multiple attempts have been made to encourage patient to reconsider rehab, however patient became tearful and angry. Patient attempting to move more in room, but is full assist at this time. Discussion with sister on phone revealed patient is consistently falling and being found in precarious situations. #Right wrist pain -xR without fracture -Voltaren and ice #Hypokalemia *improved #hypomagnesemia *imrpoved iso ongoing diarrheal illness Replete electrolytes as needed Monitor #Hypernatremia *downtrending -Poor PO intake and diarrhea, increased insensible losses -2.4L FWD, D5W held in hope to encourage intake, poor intake noted--- D5W discontinue -Encourage PO intake #Hypocalcemia #Chronic nephrolithasis #Secondary hyperparathyroidism -Resume home potassium citrate -Resume home calcitrol and ca supplementation IV calcium now 380.8 Ensure endocrine follow up upon discharge #Acute hypoxic respiratory failure *improving #superimposed staph pneumoniae #COPD/ILD exacerbation secondary to HCAP/coronavirus OC43 #Recurrent UTI (H/O ESBL) --CT head:No evidence of acute intracranial pathology. --CT chest:Consolidations in bilateral lung bases along the bronchovascular pathways most concerning for an infectious etiology. -- BioFire positive for coronavirus OC43 --Normal ammonia --Elevated procalcitonin -- Blood culture negative to date Urine culture NGTD --Discontinue Zosyn -MRSA +, sputum + staph -Infectious disease consult given MRSA nares + and staph/MRSA in sputum -Vancomycin in interim, follow up with ID consult -Continue, plan for 5-7 days for staph, day 5 Completed prednisone, EOT / Continue Nebs Advance diet Continue home inhalers Likely to complete abx this admission #Hypotension #Recurrent falls likely secondary to orthostasis BP relatively low monitor on tele Started on midodrine, new hold parameters (SBP >130) --Continue to 5mg TID Cortisol in am now 48 hours post prednisone TSH 0.4 B12 >1500 #Acute metabolic encephalopathy *resolved Multifactorial: Multifocal pneumonia, possible aspiration,UTI, Rhabdo Multiple viral infections on going, rhabdo CT with consolidations noted, improving with IVF and IV abx stable at this time #Acute Diarrhea 2/2 Norovirus gastroenteritis *improving #Malnutrition Secondary to norovirus infection Stool negative for C. difficile Monitor volume status IV fluids as needed GI consult--continue conservative, viral enteritis maybe post enteritis IBS -OP follow up Continued home pancreatic enzymes #Traumatic rhabdomyolysis *resolved #Mechanical fall CK 1283>1037>525 #Troponin elevation resolved Likely due to Rhabdo, demand ischemia Monitor #sinus node dysfunction sp PPM Monitor on tele #Chronic diastolic heart failure h/o Pulmonary hypertension Monitor volume status Hold diuretics on hold: metolazone 2.5mg weekly, torsemide 20mg BID #LARRY Noncompliant with BiPAP #CKD III Monitor renal function Avoid nephrotoxic agents as able Other chronic conditions: H/O gastric bypass Hypothyroidism--continue levothyroxine Possible functional disability given recurrent admissions/compliance issues DVT Px: Heparin SQ Code Status Full code Disposition PT OT rehab at [facility]--patient declined at this time, awaiting final recommendations Admission and Anticipated Discharge Date Admission Date: November 30, 2023 Subjective Patient evaluated at bedside Reports most symptoms have all resolved, however right wrist is bothersome. Notes that the diarrhea was more aggravating she didn't mention the wrist and worries she fell on it during the incident that prompted admission Physical Exam Constitutional: WD/WN, vitals as above Respiratory: normal respiratory effort, lungs clear to auscultation Chest (Breasts): normal inspection/palpation of breasts Musculoskeletal: slight swelling and erythema on right wrist, mobility intact, mildly limited 2/2 pain, no crepitus noted Results & Data Results & Data Vital Signs (Past 12 Hours) Vital Signs Temp Pulse Resp BP BP Pulse Ox O2 Del Method 12/07/23 11:26 37.3 C 80 19 97/58 L 90 Room Air 12/07/23 08:01 36.8 C 78 18 106/63 100 Room Air 12/07/23 07:26 73 16 94 Room Air 12/07/23 03:00 36.4 C L 78 16 115/62 93 Room Air 12/07/23 03:00 36.9 C 64 18 107/68 94 Room Air Laboratory Results Short CBC 12/07/23 Range/Units 07:19 WBC 8.39 (4.8-10.8) K/ul Hgb 9.9 L (12.0-16.0) g/dl Hct 31.5 L (37.0-47.0) % Plt Count 279 (130-400) K/uL BMP 12/07/23 07:19 Sodium 139 Potassium 4.1 Chloride 112 H Carbon Dioxide 23 BUN 9 Creatinine 0.77 Glucose 117 H Calcium 7.4 L Medications Administered Home Medications Medication Instructions Recorded Confirmed Last Taken colesevelam 625 mg tablet (WelChol) 625 mg PO TID 06/17/18 11/29/23 11/29/23 08:00 montelukast 10 mg tablet 10 mg PO HS 06/17/18 11/29/23 11/28/23 (Singulair) ipratropium 0.5 mg-albuterol 3 mg 3 ml inhalation Q4H PRN Shortness 05/05/19 11/29/23 11/10/23 (2.5 mg base)/3 mL nebulization Of Breath Or Wheezing soln xwpola-[id number]-zyvgzie 4 cap PO TID 05/05/19 11/29/23 11/29/23 08:00 24,000-76,000-120,000 unit capsule,delayed rel (Creon) omeprazole magnesium 20 mg 20 mg PO BID 05/17/19 11/29/23 11/29/23 08:00 tablet,delayed release (Prilosec OTC) metolazone 2.5 mg tablet 2.5 mg PO WK 11/15/22 11/29/23 11/26/23 oxycodone-acetaminophen 5 mg-325 1 tab PO Q6H PRN Pain 11/15/22 11/29/23 Unknown mg tablet (Percocet) ropinirole 0.5 mg tablet 0.5 mg PO HS 11/15/22 11/29/23 11/28/23 valacyclovir 500 mg tablet 500 mg PO QAM 11/15/22 11/29/23 11/29/23 calcitriol 0.5 mcg capsule 0.5 mcg PO BID #60 caps 12/21/22 11/29/23 11/29/23 08:00 albuterol sulfate 90 mcg/actuation 2 inh inhalation Q6H PRN Shortness 02/03/23 11/29/23 11/10/23 breath activated powder inhaler Of Breath Or Wheezing #1 ea levothyroxine 88 mcg tablet 88 mcg PO QAM #30 tabs 05/21/23 11/29/23 11/29/23 cyanocobalamin (vitamin B-12) 1,000 mcg PO DAILY 05/24/23 11/29/23 11/29/23 1,000 mcg tablet (Vitamin B-12) nitroglycerin 0.4 mg sublingual 0.4 mg sublingual DIRECTED PRN 05/24/23 11/29/23 Unknown tablet (Nitrostat) Chest Pain cetirizine 10 mg tablet 10 mg PO DAILY PRN Allergy Symptoms 05/29/23 11/29/23 10/30/23 torsemide 20 mg tablet 20 mg PO BID 06/24/23 11/29/23 11/29/23 08:00 calcium carbonate 600 mg calcium 1,200 mg PO TID 07/22/23 11/29/23 11/29/23 08:00 (1,500 mg) tablet (Calcium) denosumab 60 mg/mL subcutaneous 60 mg subcut Q180D #1 mL 07/22/23 11/29/23 08/11/23 syringe (Prolia) fluticasone furoate 200 1 inh inhalation QAM 10/30/23 11/29/23 11/29/23 mcg-vilanterol 25 mcg/dose inhalation powder (Breo Ellipta) cujnanrltutn-vivpttph-mljfba tablet 1 tab PO DAILY 10/30/23 11/29/23 11/29/23 rosuvastatin 10 mg tablet 10 mg PO QAM 10/30/23 11/29/23 11/29/23 diphenhydramine-zinc acetate 2 1 applic EXT QID PRN itching #30 11/04/23 11/29/23 Unknown %-0.1 % topical cream (Anti-Itch grams (diphenhydramine) with Zinc) potassium chloride 20 mEq 20 meq PO TID #90 tabs 11/04/23 11/29/23 11/29/23 08:00 tablet,extended release(part/cryst) topiramate 25 mg tablet 25 mg PO HS #54 tabs 11/04/23 11/29/23 11/28/23 vibegron 75 mg tablet (Gemtesa) 75 mg PO QAM 11/06/23 11/29/23 11/29/23 pregabalin 100 mg capsule 100 mg PO TID 30 days #90 caps 11/09/23 11/29/23 11/29/23 08:00 lamotrigine 25 mg tablet See Rx Instructions .Route .COMPLEX 11/29/23 11/29/23 11/29/23 08:00 potassium citrate 15 mEq (1,620 15 meq PO BID 11/29/23 11/29/23 11/29/23 08:00 mg) tablet,extended release Active Medications Generic Name Dose Route Start Last Admin Trade Name Freq PRN Reason Stop Dose Admin Acetaminophen 650 mg 11/30/23 01:09 12/07/23 12:21 Acetaminophen 325 Mg Tab PO 12/30/23 01:08 650 mg Q4H PRN Administration Pain or Fever Lipase/Protease/Amylase 8 cap 12/06/23 14:00 12/07/23 14:00 Pancreaze (Lipase 10,500u) Cap PO 01/05/24 13:59 8 cap TID CATE Administration Calcitriol 0.5 mcg 12/06/23 12:00 12/07/23 08:25 Calcitriol 0.25 Mcg Capsule PO 01/05/24 11:59 0.5 mcg BID CATE Administration Calcium Carbonate 1,250 mg 12/06/23 14:00 12/07/23 13:50 Calcium Carbonate 1250mg Tab PO 01/05/24 13:59 1,250 mg TID CATE Administration Cetirizine HCl 10 mg 11/30/23 03:34 12/07/23 08:27 Cetirizine Hcl 10 Mg Tablet PO 12/30/23 03:33 10 mg DAILY PRN Administration Allergy Symptoms Cyanocobalamin 1,000 mcg 11/30/23 09:00 12/07/23 09:30 Cyanocobalamin (B-12) 500 Mcg Tablet PO 12/30/23 08:59 1,000 mcg DAILY CATE Administration Diclofenac Sodium 2 gm 12/07/23 11:00 12/07/23 13:51 Diclofenac Sod 1% Gel 100 Gm Tube EXT 01/06/24 10:59 2 gm Q4H CATE Administration Protocol Duloxetine HCl 30 mg 12/04/23 09:00 12/07/23 09:31 Duloxetine Hcl 30 Mg Cap PO 01/03/24 08:59 30 mg QAM CATE Administration Fluticasone/Vilanterol 1 puffs 11/30/23 09:00 12/07/23 08:28 Fluticasone/Vilanterol 200/25mcg 14 Puffs/Inhaler INH 12/30/23 08:59 1 puffs QAM CATE Administration Heparin Sodium (Porcine) 5,000 units 11/30/23 06:00 12/07/23 06:29 Heparin Sod 5,000 Unit/0.5 Ml Vial SQ 12/30/23 05:59 5,000 units Q8 CATE Administration Hydroxyzine HCl 10 mg 12/01/23 23:10 12/07/23 08:27 Hydroxyzine Hcl 10 Mg Tab PO 12/31/23 23:09 10 mg QID PRN Administration Anxiety Dextrose 1,000 mls @ 125 mls/hr 12/06/23 11:45 12/07/23 13:51 D5w IV 01/05/24 11:44 125 mls/hr .Q8H CATE Administration Ipratropium [place] 0.5 mg 12/04/23 19:00 12/07/23 07:26 Ipratropium [place] Neb Soln 0.02% 0.5mg/2.5ml Vial INH 01/03/24 18:59 0.5 mg BIDR CATE Administration Lactobacillus Acidophilus 2 cap 11/30/23 09:00 12/07/23 09:31 Advanced Probiotic 1250 Mg Capsule PO 12/30/23 08:59 2 cap DAILY CATE Administration Lamotrigine 25 mg 12/02/23 21:00 12/07/23 09:30 Lamotrigine 25 Mg Tab PO 01/01/24 20:59 25 mg BID CATE Administration Protocol Levalbuterol HCl 1.25 mg 12/04/23 19:00 12/07/23 07:26 Levalbuterol 1.25 Mg/3 Ml Neb NEB 01/03/24 18:59 1.25 mg BIDR CATE Administration Levothyroxine Sodium 88 mcg 11/30/23 06:30 12/07/23 08:25 Levothyroxine Sodium 88 Mcg Tablet PO 12/30/23 06:29 88 mcg DAILYBB CATE Administration Melatonin 3 mg 12/02/23 01:53 12/06/23 20:17 Melatonin 3 Mg Tab PO 01/01/24 01:52 3 mg HS PRN Administration Sleep Midodrine 5 mg 12/05/23 17:00 12/07/23 11:40 Midodrine Hcl 2.5 Mg Tab PO 01/04/24 16:59 5 mg TID@0800,1200,1700 CATE Administration Montelukast Sodium 10 mg 12/06/23 21:00 12/06/23 20:27 Montelukast Sodium 10 Mg Tablet PO 01/05/24 20:59 10 mg HS CATE Administration Multivitamins/Minerals 1 tab 11/30/23 09:00 12/07/23 11:39 Cerovite Adv Formula Tab PO 12/30/23 08:59 1 tab DAILY CATE Administration Ondansetron HCl 4 mg 12/01/23 12:08 12/06/23 08:07 Ondansetron Inj 2 Mg/Ml 2 Ml Vial IV 12/31/23 12:07 4 mg Q6H PRN Administration Nausea And Vomiting Potassium Citrate 20 meq 12/06/23 12:15 12/07/23 08:50 Potassium Citrate 10 Meq Tab PO 01/05/24 12:14 20 meq DAILY CATE Administration Pregabalin 100 mg 12/06/23 14:00 12/07/23 14:00 Pregabalin 100 Mg Cap PO 01/05/24 13:59 100 mg TID CATE Administration Ropinirole HCl 0.5 mg 12/06/23 21:00 12/06/23 20:32 Ropinirole Hcl 0.25 Mg Tablet PO 01/05/24 20:59 0.5 mg HS CATE Administration Rosuvastatin Calcium 10 mg 12/07/23 09:00 12/07/23 08:50 Rosuvastatin Calcium 10 Mg Tab PO 01/06/24 08:59 10 mg QAM CATE Administration Valacyclovir HCl 500 mg 11/30/23 09:00 12/07/23 11:39 Valacyclovir Hcl 500 Mg Tablet PO 12/30/23 08:59 500 mg QAM CATE Administration Vibegron 75 mg 11/30/23 09:00 12/07/23 09:30 Vibegron 75 Mg Tab PO 12/30/23 08:59 75 mg QAM CATE Administration
[2023-12-07] MEDS: MIDODRINE HCL 10 MG TAB PO SCH (16:06)
[2023-12-08] MEDS: VANCOMYCIN HCL 750 MG in SODIUM CHLORIDE 0.9% 250 ML IV SCH (06:37)
[2023-12-08 07:00] LABS: Hematocrit (blood only) 29.3 % (37.0-47.0); Hemoglobin 9.4 g/dl (12.0-16.0); Mean Corpuscular Hemoglobin 28.3 pg (25.0-34.0); Mean Corpuscular Hgb Conc 32.1 g/dL (32.0-36.0); Mean Corpuscular Volume 88.3 fL (80.0-100.0); Mean Platelet Volume 9.9 fL (9.4-12.4); Platelet Count 282 K/uL (130-400); RDW Coefficient of Variation 16.7 % (11.5-14.5); Red Blood Count 3.32 M/uL (4.20-5.40); White Blood Count 9.56 K/ul (4.8-10.8)
[2023-12-08 07:18] LABS: BUN Creatinine Ratio 10.1 (10-20); Calcium 7.7 mg/dl (8.6-10.3); Creatinine Clr Calc Pharmacy 26.5 ml/min; Est GFR (African American) 35.1 ml/min; Est GFR (Non-African American) 30.2 ml/min; Magnesium 1.8 mg/dl (1.7-2.4); Phosphorus 3.9 mg/dl (2.5-4.9); Potassium 4.6 mmol/L (3.5-5.1)
[2023-12-08] MEDS: LACTATED RINGER'S 500 ML IV ONE (08:32)
--- NOTE | 2023-12-08 15:39 | Hospitalist Progress Note ---
Date of Service December 08, 2023 Assessment & Plan (1) Encephalopathy: Plan: Ms Braswell is a 73 year old woman with medical history significant for chronic diastolic heart failure (EF 55 to 60%, TTE 2022), sinus node dysfunction sp PPM, asthma/COPD/ILD, LARRY, pulmonary hypertension, CKDIII (baseline creatinine 1.3), history of gastric bypass, hyperparathyroidism as per records, hypothyroidism, ankylosing spondylitis as per records, chronic anemia (baseline hemoglobin of 11), recurrent UTIs (ESBL E. coli infection), urolithiasis, history pancreatic insufficiency/malabsorption, mood/anxiety disorder, chronic pain/neuropathy who is admitted for evaluation of encephalopathy. Patient was found down on 11/29 and brought to ED. Notable issue with 1 week of diarrhea preceding admission. Patient's encephalopathy appears resolved. Episode of tremulousness and anxiety in the evening which have resolved as well. Patient with MRSA nare + and staph in sputum, as well as developing opacities on imaging. Continuing with [facility] ID consulted- MRSA As of 12/04, patient refused rehab. Plan for discharge to home with home health. Multiple attempts have been made to encourage patient to reconsider rehab, however patient became tearful and angry. Patient attempting to move more in room, but is full assist at this time. Discussion with sister on phone revealed patient is consistently falling and being found in precarious situations. Patient ultimately agreeable to rehab placement. Patient is improving clinically, but notably hypotensive despite midodrine and volume resuscitation, as well as resolution of diarrhea. Cortisol normal for morning, TSH wnl, b12/folate normal. Review of anemia labs revealed notable iron deficiency which would explain hgb and poor recovery without signs of bleed. IV venofer now x 1, anemia labs. Unclear reason for JAVI, potentially secondary to hemodynamic instability. UA ordered #JAVI on CKD III potentially secondary to liable hemodynamics noted throughout admission Monitor renal function Avoid nephrotoxic agents as able Ua ordered. Repeat Cr #Hypokalemia *improved #hypomagnesemia *imrpoved iso ongoing diarrheal illness which is improved Replete electrolytes as needed Monitor #Hypernatremia *downtrending -Poor PO intake and diarrhea, increased insensible losses -2.4L FWD, D5W held in hope to encourage intake, poor intake noted--- D5W discontinue -Encourage PO intake #Hypocalcemia #Chronic nephrolithiasis #Secondary hyperparathyroidism -Continue home potassium citrate -Continue home calcitrol and ca supplementation IV calcium now 380.8 Ensure endocrine follow up upon discharge #Acute hypoxic respiratory failure *improved #superimposed staph pneumoniae #COPD/ILD exacerbation secondary to HCAP/coronavirus OC43 #Recurrent UTI (H/O ESBL) --CT head:No evidence of acute intracranial pathology. --CT chest:Consolidations in bilateral lung bases along the bronchovascular pathways most concerning for an infectious etiology. -- BioFire positive for coronavirus OC43 --Normal ammonia --Elevated procalcitonin -- Blood culture negative to date Urine culture NGTD --Discontinue Zosyn -MRSA +, sputum + staph -Infectious disease consult given MRSA nares + and staph/MRSA in sputum -Vancomycin in interim, follow up with ID consult -Completed 5 days IV vancomycin Completed prednisone, EOT 12/04 Continue Nebs prn Continue home inhalers #Hypotension #Recurrent falls likely secondary to orthostasis BP relatively low monitor on tele Started on midodrine, new hold parameters (SBP >130) --Continue to 10mg TID Cortisol 12.28 in am draw TSH 0.4 B12 >1500 #Acute metabolic encephalopathy *resolved Multifactorial: Multifocal pneumonia, possible aspiration,UTI, Rhabdo Multiple viral infections on going, rhabdo CT with consolidations noted, improving with IVF and IV abx stable at this time #Acute Diarrhea 2/2 Norovirus gastroenteritis *improved #Malnutrition Secondary to norovirus infection Stool negative for C. difficile Monitor volume status IV fluids as needed GI consult--continue conservative, viral enteritis maybe post enteritis IBS -OP follow up Continued home pancreatic enzymes #Right wrist pain *improved -xR without fracture -Voltaren and ice #Traumatic rhabdomyolysis *resolved #Mechanical fall CK 1283>1037>525 #Troponin elevation resolved Likely due to Rhabdo, demand ischemia Monitor #sinus node dysfunction sp PPM Monitor on tele #Chronic diastolic heart failure h/o Pulmonary hypertension Monitor volume status Hold diuretics on hold: metolazone 2.5mg weekly, torsemide 20mg BID -Resume as hemodynamics allow #LARRY Noncompliant with BiPAP Other chronic conditions: H/O gastric bypass Hypothyroidism--continue levothyroxine Possible functional disability given recurrent admissions/compliance issues DVT Px: Heparin SQ Code Status Full code Disposition PT OT rehab at [facility]--patient declined at this time, awaiting final recommendations Admission and Anticipated Discharge Date Admission Date: November 30, 2023 Subjective Patient evaluated at bedside, sitting in chair Remarks that she feels much better overall and denies any acute concerns Denies any bleeding at this time. Reports intermittent nausea, but no vomiting Physical Exam Constitutional: WD/WN, vitals as above Respiratory: normal respiratory effort, lungs clear to auscultation Cardiovascular: RRR, 1+ edema noted in BLE Results & Data Results & Data Vital Signs (Past 12 Hours) Vital Signs Temp Pulse Resp BP Pulse Ox O2 Del Method 12/08/23 11:38 36.5 C 65 18 96/63 L 98 Room Air 12/08/23 07:39 77 18 95 Room Air 12/08/23 07:28 36.8 C 78 17 92/58 L 94 Room Air Laboratory Results Short CBC 12/08/23 Range/Units 06:24 WBC 9.56 (4.8-10.8) K/ul Hgb 9.4 L (12.0-16.0) g/dl Hct 29.3 L (37.0-47.0) % Plt Count 282 (130-400) K/uL BMP 12/08/23 06:24 Sodium 137 Potassium 4.6 Chloride 109 H Carbon Dioxide 21 BUN 17 Creatinine 1.68 H D Glucose 93 Calcium 7.7 L Medications Administered Home Medications Medication Instructions Recorded Confirmed Last Taken colesevelam 625 mg tablet (WelChol) 625 mg PO TID 06/17/18 11/29/23 11/29/23 08:00 montelukast 10 mg tablet 10 mg PO HS 06/17/18 11/29/23 11/28/23 (Singulair) ipratropium 0.5 mg-albuterol 3 mg 3 ml inhalation Q4H PRN Shortness 05/05/19 11/29/23 11/10/23 (2.5 mg base)/3 mL nebulization Of Breath Or Wheezing soln ypljqe-lcpwsutc-oazbsjq 4 cap PO TID 05/05/19 11/29/23 11/29/23 08:00 24,000-76,000-120,000 unit capsule,delayed rel (Creon) omeprazole magnesium 20 mg 20 mg PO BID 05/17/19 11/29/23 11/29/23 08:00 tablet,delayed release (Prilosec OTC) metolazone 2.5 mg tablet 2.5 mg PO WK 11/15/22 11/29/23 11/26/23 oxycodone-acetaminophen 5 mg-325 1 tab PO Q6H PRN Pain 11/15/22 11/29/23 Unknown mg tablet (Percocet) ropinirole 0.5 mg tablet 0.5 mg PO HS 11/15/22 11/29/23 11/28/23 valacyclovir 500 mg tablet 500 mg PO QAM 11/15/22 11/29/23 11/29/23 calcitriol 0.5 mcg capsule 0.5 mcg PO BID #60 caps 12/21/22 11/29/23 11/29/23 08:00 albuterol sulfate 90 mcg/actuation 2 inh inhalation Q6H PRN Shortness 02/03/23 11/29/23 11/10/23 breath activated powder inhaler Of Breath Or Wheezing #1 ea levothyroxine 88 mcg tablet 88 mcg PO QAM #30 tabs 05/21/23 11/29/23 11/29/23 cyanocobalamin (vitamin B-12) 1,000 mcg PO DAILY 05/24/23 11/29/23 11/29/23 1,000 mcg tablet (Vitamin B-12) nitroglycerin 0.4 mg sublingual 0.4 mg sublingual DIRECTED PRN 05/24/23 11/29/23 Unknown tablet (Nitrostat) Chest Pain cetirizine 10 mg tablet 10 mg PO DAILY PRN Allergy Symptoms 05/29/23 11/29/23 10/30/23 torsemide 20 mg tablet 20 mg PO BID 06/24/23 11/29/23 11/29/23 08:00 calcium carbonate 600 mg calcium 1,200 mg PO TID 07/22/23 11/29/23 11/29/23 08:00 (1,500 mg) tablet (Calcium) denosumab 60 mg/mL subcutaneous 60 mg subcut Q180D #1 mL 07/22/23 11/29/23 08/11/23 syringe (Prolia) fluticasone furoate 200 1 inh inhalation QAM 10/30/23 11/29/23 11/29/23 mcg-vilanterol 25 mcg/dose inhalation powder (Breo Ellipta) lktittdgqjqz-swhtnzno-uoxgps tablet 1 tab PO DAILY 10/30/23 11/29/23 11/29/23 rosuvastatin 10 mg tablet 10 mg PO QAM 10/30/23 11/29/23 11/29/23 diphenhydramine-zinc acetate 2 1 applic EXT QID PRN itching #30 11/04/23 11/29/23 Unknown %-0.1 % topical cream (Anti-Itch grams (diphenhydramine) with Zinc) potassium chloride 20 mEq 20 meq PO TID #90 tabs 11/04/23 11/29/23 11/29/23 08:00 tablet,extended release(part/cryst) topiramate 25 mg tablet 25 mg PO HS #54 tabs 11/04/23 11/29/23 11/28/23 vibegron 75 mg tablet (Gemtesa) 75 mg PO QAM 11/06/23 11/29/23 11/29/23 pregabalin 100 mg capsule 100 mg PO TID 30 days #90 caps 11/09/23 11/29/23 11/29/23 08:00 lamotrigine 25 mg tablet See Rx Instructions .Route .COMPLEX 11/29/23 11/29/23 11/29/23 08:00 potassium citrate 15 mEq (1,620 15 meq PO BID 11/29/23 11/29/23 11/29/23 08:00 mg) tablet,extended release Active Medications Generic Name Dose Route Start Last Admin Trade Name Freq PRN Reason Stop Dose Admin Acetaminophen 650 mg 11/30/23 01:09 12/07/23 22:18 Acetaminophen 325 Mg Tab PO 12/30/23 01:08 650 mg Q4H PRN Administration Pain or Fever Lipase/Protease/Amylase 8 cap 12/06/23 14:00 12/08/23 13:58 Pancreaze (Lipase 10,500u) Cap PO 01/05/24 13:59 8 cap TID CATE Administration Calcitriol 0.5 mcg 12/06/23 12:00 12/08/23 07:33 Calcitriol 0.25 Mcg Capsule PO 01/05/24 11:59 0.5 mcg BID CATE Administration Calcium Carbonate 1,250 mg 12/06/23 14:00 12/08/23 13:57 Calcium Carbonate 1250mg Tab PO 01/05/24 13:59 1,250 mg TID CATE Administration Cetirizine HCl 10 mg 11/30/23 03:34 12/07/23 22:18 Cetirizine Hcl 10 Mg Tablet PO 12/30/23 03:33 10 mg DAILY PRN Administration Allergy Symptoms Cyanocobalamin 1,000 mcg 11/30/23 09:00 12/08/23 07:36 Cyanocobalamin (B-12) 500 Mcg Tablet PO 12/30/23 08:59 1,000 mcg DAILY CATE Administration Diclofenac Sodium 2 gm 12/07/23 11:00 12/08/23 13:57 Diclofenac Sod 1% Gel 100 Gm Tube EXT 01/06/24 10:59 2 gm Q4H CATE Administration Protocol Duloxetine HCl 30 mg 12/04/23 09:00 12/08/23 07:35 Duloxetine Hcl 30 Mg Cap PO 01/03/24 08:59 30 mg QAM CATE Administration Fluticasone/Vilanterol 1 puffs 11/30/23 09:00 12/08/23 07:36 Fluticasone/Vilanterol 200/25mcg 14 Puffs/Inhaler INH 12/30/23 08:59 1 puffs QAM CATE Administration Heparin Sodium (Porcine) 5,000 units 11/30/23 06:00 12/08/23 06:37 Heparin Sod 5,000 Unit/0.5 Ml Vial SQ 12/30/23 05:59 5,000 units Q8 CATE Administration Hydroxyzine HCl 10 mg 12/01/23 23:10 12/08/23 13:57 Hydroxyzine Hcl 10 Mg Tab PO 12/31/23 23:09 10 mg QID PRN Administration Anxiety Lactobacillus Acidophilus 2 cap 11/30/23 09:00 12/08/23 07:34 Advanced Probiotic 1250 Mg Capsule PO 12/30/23 08:59 2 cap DAILY CATE Administration Lamotrigine 25 mg 12/02/23 21:00 12/08/23 07:33 Lamotrigine 25 Mg Tab PO 01/01/24 20:59 25 mg BID CATE Administration Protocol Levothyroxine Sodium 88 mcg 11/30/23 06:30 12/08/23 06:36 Levothyroxine Sodium 88 Mcg Tablet PO 12/30/23 06:29 88 mcg DAILYBB CATE Administration Melatonin 3 mg 12/02/23 01:53 12/07/23 22:19 Melatonin 3 Mg Tab PO 01/01/24 01:52 3 mg HS PRN Administration Sleep Midodrine 10 mg 12/07/23 17:00 12/08/23 13:57 Midodrine Hcl 10 Mg Tab PO 01/06/24 16:59 10 mg TID@0800,1200,1700 CATE Administration Montelukast Sodium 10 mg 12/06/23 21:00 12/07/23 22:26 Montelukast Sodium 10 Mg Tablet PO 01/05/24 20:59 10 mg HS CATE Administration Multivitamins/Minerals 1 tab 11/30/23 09:00 12/08/23 07:36 Cerovite Adv Formula Tab PO 12/30/23 08:59 1 tab DAILY CATE Administration Ondansetron HCl 4 mg 12/01/23 12:08 12/08/23 13:58 Ondansetron Inj 2 Mg/Ml 2 Ml Vial IV 12/31/23 12:07 4 mg Q6H PRN Administration Nausea And Vomiting Potassium Citrate 20 meq 12/06/23 12:15 12/08/23 07:35 Potassium Citrate 10 Meq Tab PO 01/05/24 12:14 20 meq DAILY CATE Administration Pregabalin 100 mg 12/06/23 14:00 12/08/23 14:45 Pregabalin 100 Mg Cap PO 01/05/24 13:59 100 mg TID CATE Administration Ropinirole HCl 0.5 mg 12/06/23 21:00 12/07/23 22:25 Ropinirole Hcl 0.25 Mg Tablet PO 01/05/24 20:59 0.5 mg HS CATE Administration Rosuvastatin Calcium 10 mg 12/07/23 09:00 12/08/23 07:36 Rosuvastatin Calcium 10 Mg Tab PO 01/06/24 08:59 10 mg QAM CATE Administration Valacyclovir HCl 500 mg 11/30/23 09:00 12/08/23 07:35 Valacyclovir Hcl 500 Mg Tablet PO 12/30/23 08:59 500 mg QAM CATE Administration Vibegron 75 mg 11/30/23 09:00 12/08/23 07:34 Vibegron 75 Mg Tab PO 12/30/23 08:59 75 mg QAM CATE Administration
[2023-12-08] MEDS: IRON SUCROSE 400 MG in SODIUM CHLORIDE 0.9% 250 ML IV ONE (16:12)
[2023-12-08 16:38] LABS: BUN Creatinine Ratio 10.8 (10-20); Calcium 8.3 mg/dl (8.6-10.3); Creatinine Clr Calc Pharmacy 22.9 ml/min; Est GFR (African American) 29.5 ml/min; Est GFR (Non-African American) 25.4 ml/min; Potassium 5.4 mmol/L (3.5-5.1)
[2023-12-08 16:58] LABS: Ferritin 183.1 ng/ml (8-388)
[2023-12-08] MEDS: FUROSEMIDE 40 MG/4 ML VIAL IV ONE (18:14)
--- NOTE | 2023-12-08 18:47 | Nephrology Consultation ---
Date of Consultation December 08, 2023 Assessment & Plan (1) JAVI (acute kidney injury): Non-oliguric. Clinical presentation suggestive of hemodynamically mediated ATN. There is no emergent indication for DIRECTOR BEHAVIORAL HEALTH. Check UA/microscopy. Check renal US. Volume status acceptable. IV furosemide 40 mg IV provided. Renal diet. Document strict I/O's. Repeat metabolic profile tomorrow AM. Medications acceptably dosed for kidney dysfunction. Lyrica dose reduced from TID to BID. Check vancomycin level prior to next dose. (2) Hyperkalemia: Potassium citrate held. Low potassium diet. Furosemide provided. Repeat labs schedule. (3) Metabolic acidosis: (4) Chronic diastolic (congestive) heart failure: Furosemide provided. Document strict I/O's. (5) Secondary hyperparathyroidism: Serum calcium acceptable. Continue calcitriol as Rx. History of Present Illness Reason for Consultation: JAVI, complicated hx Requesting Physician: Kait Charles MD Attending Physician: Kait Cahrles MD History of Present Illness Liz Braswell is a 73 year-old female with a complex medical history including HFpEF, sinus node dysfunction s/p PPM, asthma/COPD, LARRY, ILD, pulmonary hypertension, history of gastric bypass surgery, hypothyroidism, ankylosing spondylitis, recurrent UTI, and pancreatic insufficiency. She was admitted to [facility] in October with headaches. Liz follows in the [facility] nephrology clinic with Dr. Roberts. She has a significant history of nephrolithiasis. Metabolic evaluation notable for hypocitraturia. The right kidney is atrophic and chronically dysmorphic with notable calcifications. CT scan obtained earlier during this admission demonstrated the left kidney to be normal in appearance. Liz presented to [facility] on after being found down at home. She was lethargic and confused on presentation. Evaluation demonstrating evidence of MRSA pneumonia. She remains on treatment with vancomycin. Hospitalization also notable for diarrhea attributed to norovirus. This is resolving. Clinically, Liz has been improving but unfortunately with progressive loss of kidney function. Serum creatinine on December 06 was 0.77 mg/dL. Creatinine this AM 1.68 mg/dL and now 1.94 mg/dL. She remains non-oliguric. CK elevated earlier during admission improved with IVF. She is receiving IV iron replacement for chronic iron deficiency anemia. A positive fluid balance has been maintained since admission and diuretics held. Allergies Allergy/AdvReac Type Severity Reaction Status Date / Time lisbethol Allergy Intermediate RASH, Verified 11/29/23 20:43 "FEELS FUNNY" Cephalosporins Allergy Intermediate RASH, Verified 11/29/23 20:43 DIARRHEA levofloxacin Allergy Intermediate RASH,TURNED Verified 11/29/23 20:43 RED Sulfa (Sulfonamide Allergy Intermediate Generalized Verified 11/29/23 20:43 Antibiotics) Rash ertapenem Allergy Mild RASH Verified 11/29/23 20:43 atropine Allergy Unknown ON [facility] MED Verified 11/29/23 20:43 LIST clindamycin Allergy Unknown Unknown Verified 11/29/23 20:43 dipyridamole Allergy Unknown PERSANTINE--ON Verified 11/29/23 20:43 [facility] MED LIST droperidol Allergy Unknown Unknown Verified 11/29/23 20:43 meperidine [From Demerol] Allergy Unknown ? ALLERGY Verified 11/29/23 20:43 ON [facility] MED LIST promethazine Allergy Unknown UNKNOWN Verified 11/29/23 20:43 tobramycin Allergy Unknown UNKNOWN Verified 11/29/23 20:43 aspirin AdvReac Severe BLEEDING Verified 11/29/23 20:43 doxycycline AdvReac Severe severe Verified 11/29/23 20:43 Diarrhea, nausea metolazone AdvReac Severe ELECTROLYTE Verified 11/29/23 20:43 ISSUES--HYPOKALEMIA bupropion AdvReac Intermediate NERVOUS Verified 11/29/23 20:43 REACTION cephalexin AdvReac Intermediate GI SYMPTOMS Verified 11/29/23 20:43 morphine AdvReac Intermediate NERVOUS Verified 11/29/23 20:43 REACTION TO IT nitrofurantoin AdvReac Intermediate Vomiting Verified 11/29/23 20:43 [From Macrobid] prochlorperazine AdvReac Intermediate NERVOUS Verified 11/29/23 20:43 REACTION tedizolid AdvReac Intermediate GI SYMPTOMS Verified 11/29/23 20:43 venlafaxine [From Effexor] AdvReac Intermediate NERVOUS Verified 11/29/23 20:43 REACTION lamotrigine AdvReac Unknown tremors Verified 11/29/23 20:43 Home Medications Medication Instructions Recorded Confirmed Type colesevelam 625 mg tablet (WelChol) 625 mg PO TID 06/17/18 11/29/23 History montelukast 10 mg tablet 10 mg PO HS 06/17/18 11/29/23 History (Singulair) ipratropium 0.5 mg-albuterol 3 mg 3 ml inhalation Q4H PRN Shortness 05/05/19 11/29/23 History (2.5 mg base)/3 mL nebulization Of Breath Or Wheezing soln veozhj-hdrffazl-zcjohrz 4 cap PO TID 05/05/19 11/29/23 History 24,000-76,000-120,000 unit capsule,delayed rel (Creon) omeprazole magnesium 20 mg 20 mg PO BID 05/17/19 11/29/23 History tablet,delayed release (Prilosec OTC) metolazone 2.5 mg tablet 2.5 mg PO WK 11/15/22 11/29/23 History oxycodone-acetaminophen 5 mg-325 1 tab PO Q6H PRN Pain 11/15/22 11/29/23 History mg tablet (Percocet) ropinirole 0.5 mg tablet 0.5 mg PO HS 11/15/22 11/29/23 History valacyclovir 500 mg tablet 500 mg PO QAM 11/15/22 11/29/23 History calcitriol 0.5 mcg capsule 0.5 mcg PO BID #60 caps 12/21/22 11/29/23 Rx albuterol sulfate 90 mcg/actuation 2 inh inhalation Q6H PRN Shortness 02/03/23 11/29/23 Rx breath activated powder inhaler Of Breath Or Wheezing #1 ea levothyroxine 88 mcg tablet 88 mcg PO QAM #30 tabs 05/21/23 11/29/23 Rx cyanocobalamin (vitamin B-12) 1,000 mcg PO DAILY 05/24/23 11/29/23 History 1,000 mcg tablet (Vitamin B-12) nitroglycerin 0.4 mg sublingual 0.4 mg sublingual DIRECTED PRN 05/24/23 11/29/23 History tablet (Nitrostat) Chest Pain cetirizine 10 mg tablet 10 mg PO DAILY PRN Allergy Symptoms 05/29/23 11/29/23 History torsemide 20 mg tablet 20 mg PO BID 06/24/23 11/29/23 History calcium carbonate 600 mg calcium 1,200 mg PO TID 07/22/23 11/29/23 History (1,500 mg) tablet (Calcium) denosumab 60 mg/mL subcutaneous 60 mg subcut Q180D #1 mL 07/22/23 11/29/23 Rx syringe (Prolia) fluticasone furoate 200 1 inh inhalation QAM 10/30/23 11/29/23 History mcg-vilanterol 25 mcg/dose inhalation powder (Breo Ellipta) dbjtraakyqtg-gqkexoyg-urayuf tablet 1 tab PO DAILY 10/30/23 11/29/23 History rosuvastatin 10 mg tablet 10 mg PO QAM 10/30/23 11/29/23 History diphenhydramine-zinc acetate 2 1 applic EXT QID PRN itching #30 11/04/23 11/29/23 Rx %-0.1 % topical cream (Anti-Itch grams (diphenhydramine) with Zinc) potassium chloride 20 mEq 20 meq PO TID #90 tabs 11/04/23 11/29/23 Rx tablet,extended release(part/cryst) topiramate 25 mg tablet 25 mg PO HS #54 tabs 11/04/23 11/29/23 Rx vibegron 75 mg tablet (Gemtesa) 75 mg PO QAM 11/06/23 11/29/23 History pregabalin 100 mg capsule 100 mg PO TID 30 days #90 caps 11/09/23 11/29/23 Rx lamotrigine 25 mg tablet See Rx Instructions .Route .COMPLEX 11/29/23 11/29/23 History potassium citrate 15 mEq (1,620 15 meq PO BID 11/29/23 11/29/23 History mg) tablet,extended release Patient History Medical History Difficulty swallowing "trouble swallowing pills" Poor historian Neuropathy Recurrent major depression in remission History of DVT (deep vein thrombosis) remote hx, unknown etiology, Pacemaker Medtronic, implanted 12/2022 (bradycardia) > pt does not know when last checked Right rotator cuff tear Bronchiectasis pt unaware ILD (interstitial lung disease) Osteoporosis Nocturnal hypoxemia Osteoarthritis of left knee Kidney stones LARRY treated with BiPAP Junctional bradycardia Hypothyroidism Secondary hyperparathyroidism Pulmonary hypertension mild per 07/[address] report Atherosclerosis of both lower extremities Chronic kidney disease stage 3b GERD without esophagitis COPD (chronic obstructive pulmonary disease) "Well controlled" History of anemia Lumbar transverse process fracture Pt reports lower back detioriating - can't lie flat/sleep on a chair Pulmonary nodule seen on imaging study Reactive hypoglycemia Vitamin D deficiency Wrist injury Scar tissue surrounding remote wrist ORIF several years ago resulting in intermittent inflammation per pt Bilateral nephrolithiasis H/O concussion Remote hx "a long time ago" Incisional hernia Abdominal (from multiple surgeries/feeding tube) Obesity Sepsis 05/2020 @ [facility], urosepsis 2/2 obstructing renal stone, S/P cysto/stent and ESWL Chronic urinary tract infection recent hospitalization for this at [facility] DC'ed 11/05/23 > pt reports she is still very fatigued Sleep apnea complex sleep apnea, BIPAP (non-compliant) Hyperlipidemia per records Chronic venous insufficiency Chronic sinusitis Pancreatic insufficiency chronic pancreatitis MRSA (methicillin resistant staph aureus) culture positive Hx (Left wrist) Had 3 nasal swab and all negative (through [facility] per pt) Port-A-Cath in place right side due to poor vascular access Urinary leakage PUD (peptic ulcer disease) Had feeding tube for 28 years (has been removed for 11 years) Depression Asthma Peripheral neuropathy Lumbar stenosis Chronic diastolic (congestive) heart failure Follows with [facility] cardiology Short bowel syndrome PVC (premature ventricular contraction) Pernicious anemia (08/08/13) Surgical History History of esophageal dilatation History of cystoscopy multiple H/O shoulder surgery RT arthroscopy 05/28/2021: LMA#4 atraumatic x 1 + PNB. Anesthesia postop progress note: "Pt denies SOB at this time. Block is functioning well. Vital signs stable and appropriate. Oxygenating well considering block placement and her comorbidities. Plan to discharge home with IS." S/P right rotator cuff repair S/P ureteral stent placement Status post laser lithotripsy of ureteral calculus History of prior ablation treatment Right LE in January 2020 and left LE 04/18/20 History of partial gastrectomy History of sinus surgery History of tonsillectomy and adenoidectomy History of total abdominal hysterectomy and bilateral salpingo-oophorectomy History of cholecystectomy History of appendectomy History of open reduction and internal fixation (ORIF) procedure left wrist + manipulation (01/2018) and I&D (10/2019) History of joint replacement Rt thumb History of knee replacement procedure of right knee History of esophagogastroduodenoscopy (EGD) History of colonoscopy History of gastrointestinal surgery multiple History of cardiac cath 08/2019 ([facility])- essentially normal coronary arteries angiographically, no stents Family History Mother Family history of diabetes mellitus Sister Family history of diabetes mellitus Family history of breast cancer Father Esophageal cancer Other Family history non-contributory No family history of adverse response to anesthesia Social History Smoking Status: Never smoker Second Hand Exposure: No; Do You Dip or Chew Tobacco: No; Tobacco Cessation Education Requested by Patient: No Hx Alcohol Use: Yes Alcohol type: beer Hx Substance Use: No Preferred Language: Hungarian Communication Ability: Effective Visual Impairment: No Limitations Orthopedic Surgeon Required: No Beliefs That Will Affect Care: None marital status: Single Current Living Situation: Personal Care Facility Current Living Situation Comment: apartment at [facility] in [place]/ had aid How many Children do You have: 0 Feels Safe at Home: Yes Safety Concerns: Feels Safe At This Time Assistive Devices: Walker Review of Systems Review of Systems: All systems reviewed & are unremarkable except as noted in HPI & below Physical Exam Constitutional: well developed; no acute distress Eyes: no scleral abnormality and no corneal abnormality ENMT: Mouth: no oral mucosal abnormality and oral mucous membranes not dry Neck: normal visual inspection and trachea midline Respiratory: normal respiratory effort Auscultation: lungs clear to auscultation bilaterally Cardiovascular: Rate/Rhythm: regular rate Heart Sounds: normal S1 and normal S2 Extremities: + edema Musculoskeletal: Extremities: no cyanosis and no clubbing Skin: normal turgor; no lesions Neurologic: Motor/Sensory: no tremor and no asterixis Psychiatric: Orientation: alert and oriented x 3 Results & Data Vital Signs (Past 12 Hours) Vital Signs Temp Pulse Pulse Resp BP BP Pulse Ox 12/08/23 16:31 36.8 C 74 18 130/71 96 12/08/23 14:05 72 12/08/23 11:38 36.5 C 65 18 96/63 L 98 12/08/23 07:50 69 12/08/23 07:50 12/08/23 07:39 77 18 95 12/08/23 07:28 36.8 C 78 17 92/58 L 94 O2 Del Method 12/08/23 16:31 Room Air 12/08/23 14:05 12/08/23 11:38 Room Air 12/08/23 07:50 12/08/23 07:50 Room Air 12/08/23 07:39 Room Air 12/08/23 07:28 Room Air Laboratory Results Laboratory Results - last 24 hr 12/08/23 12/08/23 06:24 16:00 WBC 9.56 RBC 3.32 L Hgb 9.4 L Hct 29.3 L MCV 88.3 MCH 28.3 MCHC 32.1 RDW Std Deviation 52.0 H RDW Coeff of David 16.7 H Plt Count 282 MPV 9.9 Sodium 137 135 L Potassium 4.6 5.4 H Chloride 109 H 109 H Carbon Dioxide 21 20 L Anion Gap 7 6 BUN 17 21 Creatinine 1.68 H D 1.94 H Est Cr Clr Drug Dosing 26.5 22.9 Est GFR ( Amer) 35.1 29.5 Est GFR (Non-Af Amer) 30.2 25.4 BUN/Creatinine Ratio 10.1 10.8 Glucose 93 101 H Calcium 7.7 L 8.3 L Phosphorus 3.9 Magnesium 1.8 Iron 18 L TIBC 186 L Unsaturated IBC 168 Transferrin % Sat 10 L Ferritin 183.[address] Abdomen and Pelvis Without Intravenous Contrast COMPARISON: CT abdomen and pelvis without contrast dated 05/20/2023 FINDINGS: Lung bases: Diffuse coarse interstitial changes noted at the lung bases, new from the previous examination. New cylindrical bronchiectasis involving the inferior right middle lobe. No consolidation. ABDOMEN: Liver: Unremarkable. Gallbladder and bile ducts: The gallbladder is not clearly delineated and is presumed surgically absent. The common bile duct is stable to slightly decreased in size measuring 9 mm at the cheryl hepatis. Pancreas: The pancreas remains stable in appearance and is somewhat atrophic. No ductal dilation. Spleen: Unremarkable. No splenomegaly. Adrenals: Unremarkable. No mass. Kidneys and ureters: Similar atrophic and dysmorphic appearance of the right kidney with internal calcifications. Subcentimeter nonobstructive nephrolithiasis in the inferior pole of the normal appearing left kidney. No nephrolithiasis or hydronephrosis. Stomach and bowel: Stable postsurgical changes consistent with distal gastrectomy. No evidence for bowel obstruction. Evaluation the bowel mucosa is limited without contrast; however, no obvious asymmetry noted. Several of the small bowel loops remain immediately deep to the skin surface in the region of the patulous defect involving the ventral abdominal wall. PELVIS: Appendix: The appendix is not clearly delineated. No secondary findings to suggest acute appendicitis. Bladder: A Cam catheter is noted in the bladder. No bladder stones or bladder wall thickening. Reproductive: Status post hysterectomy. ABDOMEN and PELVIS: Intraperitoneal space: Unremarkable. No free air. No significant fluid collection. Bones/joints: No acute fracture. No dislocation. Soft tissues: The abnormal ventral abdominal wall is stable in appearance with absence of the ventral abdominal wall musculature and overlying soft tissues at the midline, stable. The bowel loops remain immediately deep to the skin surface. Vasculature: Unremarkable. No abdominal aortic aneurysm. Lymph nodes: Unremarkable. No enlarged lymph nodes. IMPRESSION: 1. Diffuse coarse interstitial changes noted at the lung bases, new from the previous examination. New cylindrical bronchiectasis involving the inferior right middle lobe. Findings are greater than expected for subsegmental atelectasis which raises the concern for subtle interstitial infection. 2. Stable postsurgical changes consistent with distal gastrectomy. No evidence for bowel obstruction. Evaluation the bowel mucosa is limited without contrast; however, no obvious asymmetry noted. Several of the small bowel loops remain immediately deep to the skin surface in the region of the patulous defect involving the ventral abdominal wall. No pneumatosis or pneumoperitoneum. PG Care Time/CCT Total # of Minutes Spent Total Time Spent with Patient: Total time spent is greater than 50% in coordination of care (as documented) at patient's floor/unit and/or counseling patient: Coding Level of Care Code 75875 IN/OBS CONSULT LVL 4,60M Diagnoses JAVI (acute kidney injury) N17.9 Hyperkalemia E87.5 Metabolic acidosis E87.20 Chronic diastolic (congestive) heart failure I50.32 Secondary hyperparathyroidism N25.81
[2023-12-08 19:59] LABS: Appearance Urine Cloudy (Clear); Bacteria Urine Automated Negative (Negative); Bilirubin Urine Negative (Negative); Blood Urine Trace (Negative); Color Urine Yellow; Glucose Urine UA Negative (Negative); Ketones Urine Negative (Negative); Leukocyte Esterase Urine 3+ (Negative); Nitrite Urine Negative (Negative); Protein Urine Negative (Negative); RBC Urine Automated 0-4 /hpf (0-4); Specific Gravity Urine 1.006 (1.000-1.030); Urobilinogen Urine Negative (Negative); WBC Urine Automated >30 /hpf (0-5)
[2023-12-09 06:43] LABS: Hematocrit (blood only) 28.9 % (37.0-47.0); Hemoglobin 9.4 g/dl (12.0-16.0); Mean Corpuscular Hemoglobin 28.3 pg (25.0-34.0); Mean Corpuscular Hgb Conc 32.5 g/dL (32.0-36.0); Platelet Count 348 K/uL (130-400); RDW Coefficient of Variation 17.1 % (11.5-14.5); RDW Standard Deviation 52.5 fL (36.4-46.3); Red Blood Count 3.32 M/uL (4.20-5.40); White Blood Count 7.56 K/ul (4.8-10.8)
[2023-12-09 07:09] LABS: Albumin Level 2.7 gm/dl (3.4-5.0); BUN Creatinine Ratio 9.9 (10-20); Bilirubin,Total 0.4 mg/dl (0.2-1.0); Calcium 8.7 mg/dl (8.6-10.3); Creatinine Clr Calc Pharmacy 18.4 ml/min; Est GFR (African American) 22.5 ml/min; Est GFR (Non-African American) 19.5 ml/min; Globulin 2.6 gm/dl (2.5-4.0); Phosphorus 5.3 mg/dl (2.5-4.9); Potassium 4.9 mmol/L (3.5-5.1); Total Protein 5.3 gm/dl (6.0-8.3)
--- NOTE | 2023-12-09 07:50 | Ultrasound Report ---
ULTRASOUND KIDNEYS AND BLADDER CLINICAL HISTORY: Acute renal insufficiency. Hyperkalemia. COMPARISON STUDY: Abdominal CT dated 12/02/2023 TECHNIQUE: Real-time, grayscale, and color flow sonography of the kidneys and bladder is performed. I mages are reviewed in the transverse and longitudinal planes. FINDINGS: Kidneys: There is marked and asymmetric cortical atrophy of the right kidney as compared to the left. The right kidney measures 6.3 cm and the left kidney measures 11.4 cm. There is no hydronephrosis. No shadowing renal calculi are cl early identified. Renal calcifications were better appreciated on the recent CT scan. A 2.0 cm cyst i s seen in the right upper pole. There is no sonographic evidence of contour deforming renal mass lesi on. No perinephric fluid is identified. Bladder: The bladder is distended but otherwise normal in appearance. Bilateral ureteral jets were se en. The bladder volume measures 422 cc. IMPRESSION: 1. There is marked and asymmetric cortical atrophy of the right kidney as compared to left. This is u nchanged from previous. 2. No hydronephrosis is seen. 3. The bladder is distended but otherwise normal in appearance. ACT 112: Negative or not required by law. Electronically signed by: Chinedu Hicks M.D. 12/09/2023 7:48 AM
--- NOTE | 2023-12-09 10:17 | Nephrology Progress Note ---
Date of Service December 09, 2023 Assessment & Plan (1) JAVI (acute kidney injury): Plan: Non-oliguric. Clinical presentation suggestive of hemodynamically mediated ATN. There is no emergent indication for RESIDENT CAREGIVER. UA +blood. No RBCs on micro. CK added to AM labs. Microscopy notable for WBCs. Clinical presentation atypical for AIN but this cannot be excluded but clinical presentation atypical and no obvious medication. No concerning acute changes on US. Bladder distended to 400+. Suggest bladder scan for PVR. Volume status acceptable. IV furosemide 40 mg IV provided yesterday. Hold additional diuretic this AM pending monitoring. Renal diet. Document strict I/O's. Repeat metabolic profile tomorrow AM. Medications acceptably dosed for kidney dysfunction. Lyrica dose reduced from TID to BID. Check vancomycin level prior to next dose. (2) Hyperkalemia: Plan: Potassium citrate held. Low potassium diet. Furosemide provided yesterday. Improvement noted. (3) Metabolic acidosis: (4) Chronic diastolic (congestive) heart failure: Plan: Volume status acceptable. Document strict I/O's. Goal to maintain slightly negative or even fluid balance. (5) Secondary hyperparathyroidism: Plan: Serum calcium acceptable. Continue calcitriol as Rx. Admission and Anticipated Discharge Date Admission Date: November 30, 2023 Subjective No acute events overnight. Liz was resting comfortably in her bedside chair this AM. She was incontinent of urine overnight following diuretic administration. I/O not accurate. She reports feeling significantly better this AM. Weight is increased ~1 kg. She reports improved edema. Nausea and poor appetite persistent. No vomiting. Diarrhea resolved. Denies abdominal pain. De nies sensation of incomplete empting of bladder. Denies any dysuria. No fevers or chills. Breathing comfortably. Review of Systems Review of Systems: All systems reviewed & are unremarkable except as noted in HPI & below Physical Exam Constitutional: well developed; no acute distress Eyes: no scleral abnormality and no corneal abnormality ENMT: Mouth: no oral mucosal abnormality and oral mucous membranes not dry Neck: normal visual inspection and trachea midline Respiratory: normal respiratory effort Auscultation: lungs clear to auscultation bilaterally Cardiovascular: Rate/Rhythm: regular rate Heart Sounds: normal S1 and normal S2 Extremities: + edema Musculoskeletal: Extremities: no cyanosis and no clubbing Skin: normal turgor; no lesions Neurologic: Motor/Sensory: no tremor and no asterixis Psychiatric: Orientation: alert and oriented x 3 Results & Data Vital Signs (Past 12 Hours) Vital Signs Temp Pulse Resp BP Pulse Ox O2 Del Method 12/09/23 07:27 36.4 C L 64 18 107/66 91 Room Air 12/09/23 03:00 36.6 C 64 19 108/69 90 Room Air 12/08/23 23:00 37.1 C 69 22 116/67 90 Room Air Laboratory Results Laboratory Results - last 24 hr 12/08/23 12/08/23 12/09/23 16:00 19:50 06:19 WBC 7.56 RBC 3.32 L Hgb 9.4 L Hct 28.9 L MCV 87.0 MCH 28.3 MCHC 32.5 RDW Std Deviation 52.5 H RDW Coeff of David 17.1 H Plt Count 348 MPV 10.0 Sodium 135 L 140 Potassium 5.4 H 4.9 Chloride 109 H 111 H Carbon Dioxide 20 L 23 Anion Gap 6 6 BUN 21 24 H Creatinine 1.94 H 2.42 H D Est Cr Clr Drug Dosing 22.9 18.4 Est GFR ( Amer) 29.5 22.5 Est GFR (Non-Af Amer) 25.4 19.5 BUN/Creatinine Ratio 10.8 9.9 L Glucose 101 H 91 Calcium 8.3 L 8.7 Phosphorus 5.3 H Magnesium 2.0 Iron 18 L TIBC 186 L Unsaturated IBC 168 Transferrin % Sat 10 L Ferritin 183.1 Total Bilirubin 0.4 AST 12 L ALT 16 Alkaline Phosphatase 53 Total Protein 5.3 L Albumin 2.7 L Globulin 2.6 Albumin/Globulin Ratio 1.0 Urine Color Yellow Urine Appearance Cloudy A Urine pH 6.0 Ur Specific [place] 1.006 Urine Protein Negative Urine Glucose (UA) Negative Urine Ketones Negative Urine Blood Trace H Urine Nitrite Negative Urine Bilirubin Negative Urine Urobilinogen Negative Ur Leukocyte Esterase 3+ H Urine WBC (Auto) >30 H Urine RBC (Auto) 0-4 U Hyaline Cast (Auto) 1-5 U Epithel Cells (Auto) 10-20 H Urine Bacteria (Auto) Negative Urine Yeast Budding A Diagnostic Findings ULTRASOUND KIDNEYS AND BLADDER COMPARISON STUDY: Abdominal CT dated 12/02/2023 FINDINGS: Kidneys: There is marked and asymmetric cortical atrophy of the right kidney as compared to the left. The right kidney measures 6.3 cm and the left kidney measures 11.4 cm. There is no hydronephrosis. No shadowing renal calculi are clearly identified. Renal calcifications were better appreciated on the recent CT scan. A 2.0 cm cyst is seen in the right upper pole. There is no sonographic evidence of contour deforming renal mass lesion. No perinephric fluid is identified. Bladder: The bladder is distended but otherwise normal in appearance. Bilateral ureteral jets were seen. The bladder volume measures 422 cc. IMPRESSION: 1. There is marked and asymmetric cortical atrophy of the right kidney as compared to left. This is unchanged from previous. 2. No hydronephrosis is seen. 3. The bladder is distended but otherwise normal in appearance. PG Care Time/CCT Total # of Minutes Spent Total Time Spent with Patient: Total time spent is greater than 50% in coordination of care (as documented) at patient's floor/unit and/or counseling patient: Coding Level of Care Code 52041 SUB INP/OBS CARE 3/50MIN Diagnoses JAVI (acute kidney injury) N17.9 Hyperkalemia E87.5 Metabolic acidosis E87.20 Chronic diastolic (congestive) heart failure I50.32 Secondary hyperparathyroidism N25.81
[2023-12-09] MEDS: PREGABALIN 100 MG CAP PO SCH (11:55)
[2023-12-09] MEDS: LACTULOSE SYRUP 10 GM/15 ML BTL 960 ML PO ONE (17:41)
[2023-12-09] MEDS: PROMETHAZINE HCL 12.5 MG in SODIUM CHLORIDE 0.9% 50 ML IV PRN (17:42)
--- NOTE | 2023-12-09 18:58 | Hospitalist Progress Note ---
Date of Service December 09, 2023 Assessment & Plan (1) Encephalopathy: Plan: per previous hospitalist notes with addendum: Ms Braswell is a 73 year old woman with medical history significant for chronic diastolic heart failure (EF 55 to 60%, TTE 2022), sinus node dysfunction sp PPM, asthma/COPD/ILD, LARRY, pulmonary hypertension, CKDIII (baseline creatinine 1.3), history of gastric bypass, hyperparathyroidism as per records, hypothyroidism, ankylosing spondylitis as per records, chronic anemia (baseline hemoglobin of 11), recurrent UTIs (ESBL E. coli infection), urolithiasis, history pancreatic insufficiency/malabsorption, mood/anxiety disorder, chronic pain/neuropathy who is admitted for evaluation of encephalopathy. Patient was found down on 11/29 and brought to ED. Notable issue with 1 week of diarrhea preceding admission. Patient's encephalopathy appears resolved. Episode of tremulousness and anxiety in the evening which have resolved as well. Patient with MRSA nare + and staph in sputum, as well as developing opacities on imaging. Continuing with [facility]. ID consulted- MRSA As of 12/04, patient refused rehab. Plan for discharge to home with home health. Multiple attempts have been made to encourage patient to reconsider rehab, however patient became tearful and angry. Patient attempting to move more in room, but is full assist at this time. Discussion with sister on phone revealed patient is consistently falling and being found in precarious situations. Patient ultimately agreeable to rehab placement. Patient is improving clinically, but notably hypotensive despite midodrine and volume resuscitation, as well as resolution of diarrhea. Cortisol normal for morning, TSH wnl, b12/folate normal. Review of anemia labs revealed notable iron deficiency which would explain hgb and poor recovery without signs of bleed. IV venofer now x 1, anemia labs. Unclear reason for JAVI, potentially secondary to hemodynamic instability. UA ordered #Acute hypoxic respiratory failure *improved #superimposed staph pneumoniae #COPD/ILD exacerbation secondary to HCAP/coronavirus OC43 #Recurrent UTI (H/O ESBL) --CT head:No evidence of acute intracranial pathology. --CT chest:Consolidations in bilateral lung bases along the bronchovascular pathways most concerning for an infectious etiology. -- BioFire positive for coronavirus OC43 --Normal ammonia --Elevated procalcitonin -- Blood culture negative to date Urine culture NGTD --Discontinue Zosyn -MRSA +, sputum + staph -Infectious disease consult given MRSA nares + and staph/MRSA in sputum -Vancomycin in interim, follow up with ID consult -Completed 5 days IV vancomycin Completed prednisone, EOT 12/04 Continue Nebs prn Continue home inhalers / respiratory status stable #JAVI on CKD III potentially secondary to liable hemodynamics noted throughout admission Monitor renal function Avoid nephrotoxic agents as able Ua ordered. Repeat Cr 12/08 crea increased to 2.4 Nephro on boar #Hypokalemia *improved #hypomagnesemia *imrpoved iso ongoing diarrheal illness which is improved Replete electrolytes as needed Monitor #Hypernatremia *downtrending -Poor PO intake and diarrhea, increased insensible losses -2.4L FWD, D5W held in hope to encourage intake, poor intake noted--- D5W discontinue -Encourage PO intake #Hypocalcemia #Chronic nephrolithiasis #Secondary hyperparathyroidism -Continue home potassium citrate -Continue home calcitrol and ca supplementation IV calcium now 380.8 Ensure endocrine follow up upon discharge #Hypotension #Recurrent falls likely secondary to orthostasis BP relatively low monitor on tele Started on midodrine, new hold parameters (SBP >130) --Continue to 10mg TID Cortisol 12.28 in am draw TSH 0.4 B12 >1500 #Acute metabolic encephalopathy *resolved Multifactorial: Multifocal pneumonia, possible aspiration,UTI, Rhabdo Multiple viral infections on going, rhabdo CT with consolidations noted, improving with IVF and IV abx stable at this time #Acute Diarrhea 2/2 Norovirus gastroenteritis *improved #Malnutrition Secondary to norovirus infection Stool negative for C. difficile Monitor volume status IV fluids as needed GI consult--continue conservative, viral enteritis maybe post enteritis IBS -OP follow up Continued home pancreatic enzymes #Right wrist pain *improved -xR without fracture -Voltaren and ice #Traumatic rhabdomyolysis *resolved #Mechanical fall CK 1283>[id number] #Troponin elevation resolved Likely due to Rhabdo, demand ischemia Monitor #sinus node dysfunction sp PPM Monitor on tele #Chronic diastolic heart failure h/o Pulmonary hypertension Monitor volume status Hold diuretics on hold: metolazone 2.5mg weekly, torsemide 20mg BID #LARRY Noncompliant with BiPAP Other chronic conditions: H/O gastric bypass Hypothyroidism--continue levothyroxine Possible functional disability given recurrent admissions/compliance issues DVT Px: Heparin SQ Code Status Full code Disposition PT OT rehab at [facility]--patient declined at this time, awaiting final recommendations Admission and Anticipated Discharge Date Admission Date: November 30, 2023 Subjective ff up for acute hypoxic respiratory failure, etc seen resting in chair, comfortable on room air states she feels ok overall having some nausea no BM x 2-3 days (+) flatus no problems voiding no other symptoms Review of Systems Review of Systems: all noted and negative except for above Physical Exam Physical Exam: General- oriented x 3, not in distress, speaks in sentences with no effort or accessory muscle use Eyes- anicteric Neck- no JVD Lungs- clear breath sounds bilaterally, no rales/wheezes Heart- normal rate, regular rhythm; no murmurs Abdomen- normal bowel sounds, nondistended, soft, nontender Extremities- no pretibial edema, no calf tenderness Neuro- alert, oriented x 3; no gross focal neurologic deficits Skin- warm & dry Results & Data Results & Data Vital Signs (Past 12 Hours) Vital Signs Temp Pulse Pulse Resp BP Pulse Ox O2 Del Method 12/09/23 15:55 36.8 C 69 18 116/68 91 Room Air 12/09/23 11:34 36.5 C 60 18 99/62 L 93 Room Air 12/09/23 08:45 63 12/09/23 08:45 Room Air 12/09/23 07:27 36.4 C L 64 18 107/66 91 Room Air all noted and reviewed including below
[2023-12-10 07:01] LABS: Creatinine Clr Calc Pharmacy 17.7 ml/min; Est GFR (African American) 21.6 ml/min; Est GFR (Non-African American) 18.6 ml/min
[2023-12-10] MEDS: ADVANCED PROBIOTIC 625 MG CAPSULE PO SCH (08:02)
[2023-12-10] MEDS: LACTULOSE SYRUP 30 GM/45 ML UDP PO STA (11:25)
--- NOTE | 2023-12-10 12:03 | XRay Report ---
KUB HISTORY: Acute generalized abdominal pain r/o ileus, obstruction COMPARISON: CT 12/02/2023 FINDINGS: Scattered surgical clips and metallic suture materials in the abdomen and pelvis. Subcutane ous gluteal calcifications redemonstrated. Moderate fecal retention. The renal shadows are obscured b y bowel gas. Bilateral renal calculi are again noted. No ureteral calculi identified. The bowel gas p attern is nonobstructive. Gaseous distention of the large bowel is similar to prior. Without No pneu moperitoneum or pneumatosis. No fracture. IMPRESSION: 1. Bilateral nephrolithiasis redemonstrated without ureteral calculi. 2. Moderate fecal retention with nonobstructive bowel gas pattern. ACT 112: Negative or not required by law. The above report was generated using voice recognition software. It may contain grammatical, syntax o r spelling errors. Electronically signed by: Soham Kirby M.D. 12/10/2023 12:02 PM
--- NOTE | 2023-12-10 17:09 | Nephrology Progress Note ---
Date of Service December 10, 2023 Assessment & Plan (1) JAVI (acute kidney injury): Plan: Non-oliguric. Clinical presentation suggestive of hemodynamically mediated ATN. 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 Creatinine appears to be starting to plateau. UA +blood. No RBCs on micro. CK not elevated. Microscopy notable for WBCs. Clinical presentation atypical for AIN but this cannot be excluded. No concerning culprit medications. Vancomycin has been stopped. No concerning acute changes on US. Bladder distended to 400+. Suggest bladder scan for PVR. Volume status acceptable. Renal diet. Document strict I/O's. Repeat metabolic profile tomorrow AM. Medications acceptably dosed for kidney dysfunction. Lyrica dose reduced from TID to BID. (2) Hyperkalemia: Plan: Potassium citrate held. Low potassium diet. Improved. (3) Metabolic acidosis: (4) Chronic diastolic (congestive) heart failure: Plan: Volume status acceptable. Document strict I/O's. Goal to maintain slightly negative or even fluid balance. (5) Secondary hyperparathyroidism: Plan: Serum calcium acceptable. Continue calcitriol as Rx. Admission and Anticipated Discharge Date Admission Date: November 30, 2023 Subjective No acute events overnight. No complaints today. Breathing comfortably. No chest pains or palpitations. Patient information and plan of care were discussed with Dr. Smith this afternoon. Review of Systems Review of Systems: All systems reviewed & are unremarkable except as noted in HPI & below Physical Exam Constitutional: well developed; no acute distress Eyes: no scleral abnormality and no corneal abnormality ENMT: Mouth: no oral mucosal abnormality and oral mucous membranes not dry Neck: normal visual inspection and trachea midline Respiratory: normal respiratory effort Auscultation: lungs clear to auscultation bilaterally Cardiovascular: Rate/Rhythm: regular rate Heart Sounds: normal S1 and normal S2 Extremities: + edema Musculoskeletal: Extremities: no cyanosis and no clubbing Skin: normal turgor; no lesions Neurologic: Motor/Sensory: no tremor and no asterixis Psychiatric: Orientation: alert and oriented x 3 Results & Data Vital Signs (Past 12 Hours) Vital Signs Temp Pulse Resp BP BP Pulse Ox O2 Del Method 12/10/23 15:03 36.6 C 61 19 98/59 L 96 Room Air 12/10/23 11:21 36.4 C L 63 18 93/58 L 96 Room Air 12/10/23 07:35 36.4 C L 63 18 98/61 L 94 Room Air Laboratory Results Laboratory Results - last 24 hr 12/10/23 12/10/23 06:21 Unknown Creatinine 2.51 H Est Cr Clr Drug Dosing 17.7 Est GFR ( Amer) 21.6 Est GFR (Non-Af Amer) 18.6 Stool Occult Bld Scrn Negative PG Care Time/CCT Total # of Minutes Spent Total Time Spent with Patient: Total time spent is greater than 50% in coordination of care (as documented) at patient's floor/unit and/or counseling patient: Coding Level of Care Code 16936 SUB INP/OBS CARE 3/50MIN Diagnoses JAVI (acute kidney injury) N17.9 Hyperkalemia E87.5 Metabolic acidosis E87.20 Chronic diastolic (congestive) heart failure I50.32 Secondary hyperparathyroidism N25.81
--- NOTE | 2023-12-10 18:22 | Hospitalist Progress Note ---
Date of Service December 10, 2023 Assessment & Plan (1) Encephalopathy: Plan: per previous hospitalist notes with addendum: Ms Braswell is a 73 year old woman with medical history significant for chronic diastolic heart failure (EF 55 to 60%, TTE 2022), sinus node dysfunction sp PPM, asthma/COPD/ILD, LARRY, pulmonary hypertension, CKDIII (baseline creatinine 1.3), history of gastric bypass, hyperparathyroidism as per records, hypothyroidism, ankylosing spondylitis as per records, chronic anemia (baseline hemoglobin of 11), recurrent UTIs (ESBL E. coli infection), urolithiasis, history pancreatic insufficiency/malabsorption, mood/anxiety disorder, chronic pain/neuropathy who is admitted for evaluation of encephalopathy. Patient was found down on 11/29 and brought to ED. Notable issue with 1 week of diarrhea preceding admission. Patient's encephalopathy appears resolved. Episode of tremulousness and anxiety in the evening which have resolved as well. Patient with MRSA nare + and staph in sputum, as well as developing opacities on imaging. Continuing with Vanc. ID consulted- MRSA As of 12/04, patient refused rehab. Plan for discharge to home with home health. Multiple attempts have been made to encourage patient to reconsider rehab, however patient became tearful and angry. Patient attempting to move more in room, but is full assist at this time. Discussion with sister on phone revealed patient is consistently falling and being found in precarious situations. Patient ultimately agreeable to rehab placement. Patient is improving clinically, but notably hypotensive despite midodrine and volume resuscitation, as well as resolution of diarrhea. Cortisol normal for morning, TSH wnl, b12/folate normal. Review of anemia labs revealed notable iron deficiency which would explain hgb and poor recovery without signs of bleed. IV venofer now x 1, anemia labs. Unclear reason for JAVI, potentially secondary to hemodynamic instability. UA ordered #Acute hypoxic respiratory failure *improved #superimposed staph pneumoniae #COPD/ILD exacerbation secondary to HCAP/coronavirus OC43 #Recurrent UTI (H/O ESBL) --CT head:No evidence of acute intracranial pathology. --CT chest:Consolidations in bilateral lung bases along the bronchovascular pathways most concerning for an infectious etiology. -- BioFire positive for coronavirus OC43 --Normal ammonia --Elevated procalcitonin -- Blood culture negative to date Urine culture NGTD --Discontinue Zosyn -MRSA +, sputum + staph -Infectious disease consult given MRSA nares + and staph/MRSA in sputum -Vancomycin in interim, follow up with ID consult -Completed 5 days IV vancomycin Completed prednisone, EOT 12/04 Continue Nebs prn Continue home inhalers 12/09 respiratory status stable #JAVI on CKD III potentially secondary to liable hemodynamics noted throughout admission Monitor renal function Avoid nephrotoxic agents as able Ua ordered. Repeat Cr 12/09 crea increased to 2.4--> 2.5 diuretics on hold Nephro on board #Hypokalemia *improved #hypomagnesemia *improved iso ongoing diarrheal illness which is improved Replete electrolytes as needed Monitor #Hypernatremia *downtrending -Poor PO intake and diarrhea, increased insensible losses -2.4L FWD, D5W held in hope to encourage intake, poor intake noted--- D5W discontinue -Encourage PO intake #Hypocalcemia #Chronic nephrolithiasis #Secondary hyperparathyroidism -Continue home potassium citrate -Continue home calcitrol and ca supplementation IV calcium now 380.8 Ensure endocrine follow up upon discharge #Hypotension #Recurrent falls likely secondary to orthostasis BP relatively low monitor on tele Started on midodrine, new hold parameters (SBP >130) --Continue to 10mg TID Cortisol 12.28 in am draw TSH 0.4 B12 >1500 #Acute metabolic encephalopathy *resolved Multifactorial: Multifocal pneumonia, possible aspiration,UTI, Rhabdo Multiple viral infections on going, rhabdo CT with consolidations noted, improving with IVF and IV abx stable at this time #Acute Diarrhea 2/2 Norovirus gastroenteritis *improved #Malnutrition Secondary to norovirus infection Stool negative for C. difficile Monitor volume status IV fluids as needed GI consult--continue conservative, viral enteritis maybe post enteritis IBS -OP follow up Continued home pancreatic enzymes Constipation Lactulose ordered #Right wrist pain *improved -xR without fracture -Voltaren and ice #Traumatic rhabdomyolysis *resolved #Mechanical fall CK 1283>1037>525 #Troponin elevation resolved Likely due to Rhabdo, demand ischemia Monitor #sinus node dysfunction sp PPM Monitor on tele #Chronic diastolic heart failure h/o Pulmonary hypertension Monitor volume status Hold diuretics on hold: metolazone 2.5mg weekly, torsemide 20mg BID #LARRY Noncompliant with BiPAP Other chronic conditions: H/O gastric bypass Hypothyroidism--continue levothyroxine Possible functional disability given recurrent admissions/compliance issues DVT Px: Heparin SQ Code Status Full code Disposition pending Admission and Anticipated Discharge Date Admission Date: November 30, 2023 Subjective ff up for pneumonia, etc seen resting in bed sitting up comfortable states she feels ok overall still having some abdominal bloating, mild nausea no BMs yet no problems with voiding, denies frequency or urgency Review of Systems Review of Systems: all noted and negative except for above Physical Exam Physical Exam: General- oriented x 3, not in distress, speaks in sentences with no effort or accessory muscle use Eyes- anicteric Neck- no JVD Lungs- clear breath sounds bilaterally, no crackles or wheezing Heart- normal rate, regular rhythm; no murmurs Abdomen- normal bowel sounds, nondistended, soft, nontender Extremities- no pretibial edema, no calf tenderness Neuro- alert, oriented x 3; no gross focal neurologic deficits Skin- warm & dry Results & Data Results & Data Vital Signs (Past 12 Hours) Vital Signs Temp Pulse Resp BP BP Pulse Ox O2 Del Method 12/10/23 15:03 36.6 C 61 19 98/59 L 96 Room Air 12/10/23 11:21 36.4 C L 63 18 93/58 L 96 Room Air 12/10/23 07:35 36.4 C L 63 18 98/61 L 94 Room Air all noted and reviewed including below
[2023-12-11 06:48] LABS: BUN Creatinine Ratio 10.6 (10-20); Calcium 9.8 mg/dl (8.6-10.3); Creatinine Clr Calc Pharmacy 16.9 ml/min; Est GFR (African American) 20.4 ml/min; Est GFR (Non-African American) 17.6 ml/min; Phosphorus 6.4 mg/dl (2.5-4.9); Potassium 5.1 mmol/L (3.5-5.1)
--- NOTE | 2023-12-11 11:03 | Nephrology Progress Note ---
Date of Service December 11, 2023 Assessment & Plan (1) JAVI (acute kidney injury): Plan: Non-oliguric. Clinical presentation suggestive of hemodynamically mediated ATN. 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 Creatinine continues slow upward trend: 2.4-->2.5-->2.6. Baseline <1 mg/dL. UA +blood. No RBCs on micro. CK not elevated. Microscopy notable for WBCs. Clinical presentation atypical for AIN but this cannot be excluded. No concerning culprit medications. Vancomycin has been stopped. No concerning acute changes on US. Bladder distended to 400+. Repeat bladder scan for PVR today. Low threshold for Cam catheter. Maintained on Gemtesa for urinary incontinence which will be held. Volume status acceptable. Renal diet. Document strict I/O's. Repeat metabolic profile tomorrow AM. Medications acceptably dosed for kidney dysfunction. Lyrica dose reduced from TID to BID. (2) Hyperkalemia: Plan: Potassium citrate held. Low potassium diet. Improved. (3) Metabolic acidosis: (4) Chronic diastolic (congestive) heart failure: Plan: Volume status acceptable. Document strict I/O's. Goal to maintain even fluid balance. (5) Secondary hyperparathyroidism: Plan: Serum calcium acceptable. Continue calcitriol as Rx. Admission and Anticipated Discharge Date Admission Date: November 30, 2023 Subjective No acute events overnight. Liz feels well this AM. She reported some nausea and upset stomach. Denies constipation. No diarrhea. Appetite decreased. She is out of bed. She is voiding her urine without difficulty. Admitted to some sensation of urinary retention post void this AM. Remains resistant to the idea of a urinary catheter. PVR will be repeated today. She is not experiencing dysuria or discomfort in her pelvis. She is breathing comfortably. She denies fluid retention or edema. Review of Systems Review of Systems: All systems reviewed & are unremarkable except as noted in HPI & below Physical Exam Constitutional: well developed; no acute distress Eyes: no scleral abnormality and no corneal abnormality ENMT: Mouth: no oral mucosal abnormality and oral mucous membranes not dry Neck: normal visual inspection and trachea midline Respiratory: normal respiratory effort Auscultation: lungs clear to auscultation bilaterally Cardiovascular: Rate/Rhythm: regular rate Heart Sounds: normal S1 and normal S2 Extremities: + edema Musculoskeletal: Extremities: no cyanosis and no clubbing Skin: normal turgor; no lesions Neurologic: Motor/Sensory: no tremor and no asterixis Psychiatric: Orientation: alert and oriented x 3 Results & Data Vital Signs (Past 12 Hours) Vital Signs Temp Pulse Resp BP Pulse Ox O2 Del Method 12/11/23 10:59 36.6 C 66 19 113/66 97 Room Air 12/11/23 07:30 Room Air 12/11/23 07:22 36.9 C 70 19 121/71 93 Room Air 12/11/23 03:07 36.8 C 69 18 106/67 90 Room Air 12/11/23 02:46 Room Air 12/10/23 23:03 37.1 C 77 18 107/66 93 Room Air Laboratory Results Laboratory Results - last 24 hr 12/10/23 12/11/23 Unknown 06:03 Sodium 141 Potassium 5.1 Chloride 110 H Carbon Dioxide 25 Anion Gap 6 BUN 28 H Creatinine 2.63 H Est Cr Clr Drug Dosing 16.9 Est GFR ( Amer) 20.4 Est GFR (Non-Af Amer) 17.6 BUN/Creatinine Ratio 10.6 Glucose 89 Calcium 9.8 Phosphorus 6.4 H Albumin 3.0 L Stool Occult Bld Scrn Negative PG Care Time/CCT Total # of Minutes Spent Total Time Spent with Patient: Total time spent is greater than 50% in coordination of care (as documented) at patient's floor/unit and/or counseling patient: Coding Level of Care Code 51142 SUB INP/OBS CARE 3/50MIN Diagnoses JAVI (acute kidney injury) N17.9 Hyperkalemia E87.5 Metabolic acidosis E87.20 Chronic diastolic (congestive) heart failure I50.32 Secondary hyperparathyroidism N25.81
--- NOTE | 2023-12-11 13:54 | Infectious Disease Consult ---
Date of Service December 11, 2023 Telehealth Information I performed this visit using a real-time telehealth connection between my location and the patients location ([facility]). After connecting through interactive tele-video, patient was identified by name and date of and/or wristband check.Patient (or authorized healthcare financial service representative) was informed that this was a telemedicine visit and it was being conducted confidentially over secure lines. My office door was closed and no one else was present in the room with me.Patient (or authorized healthcare financial service representative) provided consent to proceed with the visit, expressed an understanding of privacy and security of the telemedicine visit, and gave permission to have a hospital financial service representative in the room in order to assist with the visit and to conduct portions of the visit, as needed. I informed the patient (or authorized healthcare financial service representative) that I reviewed their record and presented the opportunity for them to ask any questions regarding the visit today. The patient agreed to participate. Assessment & Plan (1) Pneumonia due to Staphylococcus: Plan: Suspected bacterial pneumonia w/ MRSA Pyuria w/ ESBL E coli/PSA - possible colonization Gastroenteritis w/ Norovirus JAVI on CKD multifactorial (rhabdomyolysis +/- drug-induced nephropathy) Hx of reaction to cephalosporin (rash; tolerated zosyn), LVQ (rash), sulfa (rash), ertapenem (rash), clinda, tobra, doxy, cephalexin (GI sx), nitro (vomiting), tedizolid (GI sx) - the patient has already completed a course of vancomycin iv for MRSA pneumonia: 11/29-12/05. It is likely that the vancomycin level stayed in a therapeutic level for several days post discontinuation given patient's decreased renal function. Given her clinical response, there is no indication to provide further MRSA coverage w/ addtional abx at this time. - It is unclear if the pyuria w/ positive urine culture actually indicates active infection as she does have any specific symptoms or findings suggestive of such infection. As the patient remain in the hospital for the weekend, she can be monitored off abx. If she develops s/sx of infection consistent w/ UTI, I recommend to start meropenem IV to cover both the ESBL E coli and PSA. Case discussed w/ Dr. Smith More than 50% of this 60-minute visit was spent counseling and coordinating care pertaining to the patient's infection diagnosis, additional work-up, and treatment option(s) as well as potential adverse events of the treatment. History of Present Illness History of Present Illness This is a 73 y/o female w/ hx of recurrent UTI w/ ESBL E coli, chronic nephrolithiasis, chronic diastonic HF, sinus node dysfunction s/p PPM, COPD/ILD, pulm HTN, LARRY, HTN, CKD III, gastric bypass, pancreatic insufficiency, malabsorption, hypothyroidism, chronic anemia, chronic pain, and mood d/o. The patient was admitted to [facility] after found down on 11/29/23. Reportedly she had severe diarrhea x1 week prior to admission. ID was called to evaluate the patient for developing opacities on imaging: CT chest showed consolidations in the bilateral lung bases along the bronchovascular pathways. She was treated w/ vancomycin iv from 11/29 to 12/06/23: JAVI noted. Zosyn was stopped before that. No fever. She initially had acute hypoxic respiratory failure, which has improved. Acute diarrhea presumably secondary to Norovirus infection and rhabdomyolysis have improved as well. Pyuria was noted on evaluation for the JAVI on CKD and the reflex urine culture showed ESBL E coli and PSA. The patient is resting comfortably in chair. Although she feels very tired, she feels much better compared to the day of her admission. Denies diarrhea, n/v, abd pain, sob, coughing, chest pain, or f/c. She denies flank pain, urinary frequency, urgency, or dysuria. She reports urinary hesitancy at time but she is not able to tell if this is much different from her baseline. Allergies Allergy/AdvReac Type Severity Reaction Status Date / Time bethanechol Allergy Intermediate RASH, Verified 11/29/23 20:43 "FEELS FUNNY" Cephalosporins Allergy Intermediate RASH, Verified 11/29/23 20:43 DIARRHEA levofloxacin Allergy Intermediate RASH,TURNED Verified 11/29/23 20:43 RED Sulfa (Sulfonamide Allergy Intermediate Generalized Verified 11/29/23 20:43 Antibiotics) Rash ertapenem Allergy Mild RASH Verified 11/29/23 20:43 atropine Allergy Unknown ON [facility]G MED Verified 11/29/23 20:43 LIST clindamycin Allergy Unknown Unknown Verified 11/29/23 20:43 dipyridamole Allergy Unknown PERSANTINE--ON Verified 11/29/23 20:43 GMG MED LIST droperidol Allergy Unknown Unknown Verified 11/29/23 20:43 meperidine [From Demerol] Allergy Unknown ? ALLERGY Verified 11/29/23 20:43 ON [facility] MED LIST promethazine Allergy Unknown UNKNOWN Verified 11/29/23 20:43 tobramycin Allergy Unknown UNKNOWN Verified 11/29/23 20:43 aspirin AdvReac Severe BLEEDING Verified 11/29/23 20:43 doxycycline AdvReac Severe severe Verified 11/29/23 20:43 Diarrhea, nausea metolazone AdvReac Severe ELECTROLYTE Verified 11/29/23 20:43 ISSUES--HYPOKALEMIA bupropion AdvReac Intermediate NERVOUS Verified 11/29/23 20:43 REACTION cephalexin AdvReac Intermediate GI SYMPTOMS Verified 11/29/23 20:43 morphine AdvReac Intermediate NERVOUS Verified 11/29/23 20:43 REACTION TO IT nitrofurantoin AdvReac Intermediate Vomiting Verified 11/29/23 20:43 [From Macrobid] prochlorperazine AdvReac Intermediate NERVOUS Verified 11/29/23 20:43 REACTION tedizolid AdvReac Intermediate GI SYMPTOMS Verified 11/29/23 20:43 venlafaxine [From Effexor] AdvReac Intermediate NERVOUS Verified 11/29/23 20:43 REACTION lamotrigine AdvReac Unknown tremors Verified 11/29/23 20:43 Home Medications Medication Instructions Recorded Confirmed Type colesevelam 625 mg tablet (WelChol) 625 mg PO TID 06/17/18 11/29/23 History montelukast 10 mg tablet 10 mg PO HS 06/17/18 11/29/23 History (Singulair) ipratropium 0.5 mg-albuterol 3 mg 3 ml inhalation Q4H PRN Shortness 05/05/19 11/29/23 History (2.5 mg base)/3 mL nebulization Of Breath Or Wheezing soln dutzqw-urqdbmne-ezcklmc 4 cap PO TID 05/05/19 11/29/23 History 24,000-76,000-120,000 unit capsule,delayed rel (Creon) omeprazole magnesium 20 mg 20 mg PO BID 05/17/19 11/29/23 History tablet,delayed release (Prilosec OTC) metolazone 2.5 mg tablet 2.5 mg PO WK 11/15/22 11/29/23 History oxycodone-acetaminophen 5 mg-325 1 tab PO Q6H PRN Pain 11/15/22 11/29/23 History mg tablet (Percocet) ropinirole 0.5 mg tablet 0.5 mg PO HS 11/15/22 11/29/23 History valacyclovir 500 mg tablet 500 mg PO QAM 11/15/22 11/29/23 History calcitriol 0.5 mcg capsule 0.5 mcg PO BID #60 caps 12/21/22 11/29/23 Rx albuterol sulfate 90 mcg/actuation 2 inh inhalation Q6H PRN Shortness 02/03/23 11/29/23 Rx breath activated powder inhaler Of Breath Or Wheezing #1 ea levothyroxine 88 mcg tablet 88 mcg PO QAM #30 tabs 05/21/23 11/29/23 Rx cyanocobalamin (vitamin B-12) 1,000 mcg PO DAILY 05/24/23 11/29/23 History 1,000 mcg tablet (Vitamin B-12) nitroglycerin 0.4 mg sublingual 0.4 mg sublingual DIRECTED PRN 05/24/23 11/29/23 History tablet (Nitrostat) Chest Pain cetirizine 10 mg tablet 10 mg PO DAILY PRN Allergy Symptoms 05/29/23 11/29/23 History torsemide 20 mg tablet 20 mg PO BID 06/24/23 11/29/23 History calcium carbonate 600 mg calcium 1,200 mg PO TID 07/22/23 11/29/23 History (1,500 mg) tablet (Calcium) denosumab 60 mg/mL subcutaneous 60 mg subcut Q180D #1 mL 07/22/23 11/29/23 Rx syringe (Prolia) fluticasone furoate 200 1 inh inhalation QAM 10/30/23 11/29/23 History mcg-vilanterol 25 mcg/dose inhalation powder (Breo Ellipta) iqgnldbuzcej-jamccuzr-lxzusx tablet 1 tab PO DAILY 10/30/23 11/29/23 History rosuvastatin 10 mg tablet 10 mg PO QAM 10/30/23 11/29/23 History diphenhydramine-zinc acetate 2 1 applic EXT QID PRN itching #30 11/04/23 11/29/23 Rx %-0.1 % topical cream (Anti-Itch grams (diphenhydramine) with Zinc) potassium chloride 20 mEq 20 meq PO TID #90 tabs 11/04/23 11/29/23 Rx tablet,extended release(part/cryst) topiramate 25 mg tablet 25 mg PO HS #54 tabs 11/04/23 11/29/23 Rx vibegron 75 mg tablet (Gemtesa) 75 mg PO QAM 11/06/23 11/29/23 History pregabalin 100 mg capsule 100 mg PO TID 30 days #90 caps 11/09/23 11/29/23 Rx lamotrigine 25 mg tablet See Rx Instructions .Route .COMPLEX 11/29/23 11/29/23 History potassium citrate 15 mEq (1,620 15 meq PO BID 11/29/23 11/29/23 History mg) tablet,extended release Patient History Medical History Difficulty swallowing "trouble swallowing pills" Poor historian Neuropathy Recurrent major depression in remission History of DVT (deep vein thrombosis) remote hx, unknown etiology, Pacemaker [employer], implanted 12/2022 (bradycardia) > pt does not know when last checked Right rotator cuff tear Bronchiectasis pt unaware ILD (interstitial lung disease) Osteoporosis Nocturnal hypoxemia Osteoarthritis of left knee Kidney stones LARRY treated with BiPAP Junctional bradycardia Hypothyroidism Secondary hyperparathyroidism Pulmonary hypertension mild per 07/[address] report Atherosclerosis of both lower extremities Chronic kidney disease stage 3b GERD without esophagitis COPD (chronic obstructive pulmonary disease) "Well controlled" History of anemia Lumbar transverse process fracture Pt reports lower back detioriating - can't lie flat/sleep on a chair Pulmonary nodule seen on imaging study Reactive hypoglycemia Vitamin D deficiency Wrist injury Scar tissue surrounding remote wrist ORIF several years ago resulting in intermittent inflammation per pt Bilateral nephrolithiasis H/O concussion Remote hx "a long time ago" Incisional hernia Abdominal (from multiple surgeries/feeding tube) Obesity Sepsis 05/2020 @ [facility], urosepsis 2/2 obstructing renal stone, S/P cysto/stent and ESWL Chronic urinary tract infection recent hospitalization for this at [facility] DC'ed 11/05/23 > pt reports she is still very fatigued Sleep apnea complex sleep apnea, BIPAP (non-compliant) Hyperlipidemia per records Chronic venous insufficiency Chronic sinusitis Pancreatic insufficiency chronic pancreatitis MRSA (methicillin resistant staph aureus) culture positive Hx (Left wrist) Had 3 nasal swab and all negative (through [facility] per pt) Port-A-Cath in place right side due to poor vascular access Urinary leakage PUD (peptic ulcer disease) Had feeding tube for 28 years (has been removed for 11 years) Depression Asthma Peripheral neuropathy Lumbar stenosis Chronic diastolic (congestive) heart failure Follows with [facility] cardiology Short bowel syndrome PVC (premature ventricular contraction) Pernicious anemia (08/08/13) Surgical History History of esophageal dilatation History of cystoscopy multiple H/O shoulder surgery RT arthroscopy 05/28/2021: LMA#4 atraumatic x 1 + PNB. Anesthesia postop progress note: "Pt denies SOB at this time. Block is functioning well. Vital signs stable and appropriate. Oxygenating well considering block placement and her comorbidities. Plan to discharge home with IS." S/P right rotator cuff repair S/P ureteral stent placement Status post laser lithotripsy of ureteral calculus History of prior ablation treatment Right LE in January 2020 and left LE 04/18/20 History of partial gastrectomy History of sinus surgery History of tonsillectomy and adenoidectomy History of total abdominal hysterectomy and bilateral salpingo-oophorectomy History of cholecystectomy History of appendectomy History of open reduction and internal fixation (ORIF) procedure left wrist + manipulation (01/2018) and I&D (10/2019) History of joint replacement Rt thumb History of knee replacement procedure of right knee History of esophagogastroduodenoscopy (EGD) History of colonoscopy History of gastrointestinal surgery multiple History of cardiac cath 08/2019 ([facility])- essentially normal coronary arteries angiographically, no stents Family History Mother Family history of diabetes mellitus Sister Family history of diabetes mellitus Family history of breast cancer Father Esophageal cancer Other Family history non-contributory No family history of adverse response to anesthesia Social History Smoking Status: Never smoker Second Hand Exposure: No; Do You Dip or Chew Tobacco: No; Hx Alcohol Use: Yes Alcohol type: beer Hx Substance Use: No Preferred Language: Swedish Communication Ability: Effective Visual Impairment: No Limitations Supervisor Brine Required: No Beliefs That Will Affect Care: None marital status: Single Current Living Situation: Personal Care Facility Current Living Situation Comment: apartment at [facility] in [place]/ had aid How many Children do You have: 0 Feels Safe at Home: Yes Assistive Devices: Walker Review of Systems as HPI and all others negative Physical Exam General: nno acute distress Lungs: breathing comfortably on room air Neuro: alert, conversant, answering questions appropriately Results & Data Vital Signs (Past 12 Hours) Vital Signs Temp Pulse Resp BP Pulse Ox O2 Del Method 12/11/23 10:59 36.6 C 66 19 113/66 97 Room Air 12/11/23 07:30 Room Air 12/11/23 07:22 36.9 C 70 19 121/71 93 Room Air 12/11/23 03:07 36.8 C 69 18 106/67 90 Room Air 12/11/23 02:46 Room Air Laboratory Results Labs WBC 8.34K ->-> 7.56K H 9.4 Plt 348K Cr 2.63 Cr 1.32 ->-> 0.66 ->> 1.68 ->-> 2.63 Diagnostic Findings RPPCR (11/29/23): Coronavirus OC43 detected MRSA screen (11/29/23): positive Blood cx (11/29): NG GI pathogen panel (12/01/23): Norovirus detected Sputum cx (12/02): MRSA (S to clinda, rifa, tetra, serenity, vanco kacey 2) UA (12/07): LE 3+, WBC >30 U cx (12/07): ESBL E coli (S to ertapenem, gent, yolanda, nitro, tobra, zosyn), PSA (S to cefep, ceftaz, gent, yolanda, tobra, zosyn; I to cipro; R to lvq) CT head (11/29/23): No evidence of acute intracranial pathology. CT chest (11/30/23): Consolidations in bilateral lung bases along the bronchovascular pathways most concerning for an infectious etiology. CT A/P (12/02): 1. Diffuse coarse interstitial changes noted at the lung bases, new from the previous examination. New cylindrical bronchiectasis involving the inferior right middle lobe. Findings are greater than expected for subsegmental atelectasis which raises the concern for subtle interstitial infection. 2. Stable postsurgical changes consistent with distal gastrectomy. No evidence for bowel obstruction. Evaluation the bowel mucosa is limited without contrast; however, no obvious asymmetry noted. Several of the small bowel loops remain immediately deep to the skin surface in the region of the patulous defect involving the ventral abdominal wall. No pneumatosis or pneumoperitoneum. Renal US (12/07): 1. There is marked and asymmetric cortical atrophy of the right kidney as compared to left. This is unchanged from previous. 2. No hydronephrosis is seen. 3. The bladder is distended but otherwise normal in appearance. KUB X-Ray (12/09): 1. Bilateral nephrolithiasis redemonstrated without ureteral calculi. 2. Moderate fecal retention with nonobstructive bowel gas pattern. Medications Administered Zosyn and vancomycin iv
--- NOTE | 2023-12-11 18:57 | Hospitalist Progress Note ---
Date of Service December 11, 2023 Assessment & Plan (1) Encephalopathy: Plan: per previous hospitalist notes with addendum: Ms Braswell is a 73 year old woman with medical history significant for chronic diastolic heart failure (EF 55 to 60%, TTE 2022), sinus node dysfunction sp PPM, asthma/COPD/ILD, LARRY, pulmonary hypertension, CKDIII (baseline creatinine 1.3), history of gastric bypass, hyperparathyroidism as per records, hypothyroidism, ankylosing spondylitis as per records, chronic anemia (baseline hemoglobin of 11), recurrent UTIs (ESBL E. coli infection), urolithiasis, history pancreatic insufficiency/malabsorption, mood/anxiety disorder, chronic pain/neuropathy who is admitted for evaluation of encephalopathy. Patient was found down on 11/29 and brought to ED. Notable issue with 1 week of diarrhea preceding admission. Patient's encephalopathy appears resolved. Episode of tremulousness and anxiety in the evening which have resolved as well. Patient with MRSA nare + and staph in sputum, as well as developing opacities on imaging. Continuing with [facility]. ID consulted- MRSA As of 12/04, patient refused rehab. Plan for discharge to home with home health. Multiple attempts have been made to encourage patient to reconsider rehab, however patient became tearful and angry. Patient attempting to move more in room, but is full assist at this time. Discussion with sister on phone revealed patient is consistently falling and being found in precarious situations. Patient ultimately agreeable to rehab placement. Patient is improving clinically, but notably hypotensive despite midodrine and volume resuscitation, as well as resolution of diarrhea. Cortisol normal for morning, TSH wnl, b12/folate normal. Review of anemia labs revealed notable iron deficiency which would explain hgb and poor recovery without signs of bleed. IV venofer now x 1, anemia labs. Unclear reason for JAVI, potentially secondary to hemodynamic instability. UA ordered #Acute hypoxic respiratory failure *improved #superimposed staph pneumoniae #COPD/ILD exacerbation secondary to HCAP/coronavirus OC43 #Recurrent UTI (H/O ESBL) --CT head:No evidence of acute intracranial pathology. --CT chest:Consolidations in bilateral lung bases along the bronchovascular pathways most concerning for an infectious etiology. -- BioFire positive for coronavirus OC43 --Normal ammonia --Elevated procalcitonin -- Blood culture negative to date Urine culture NGTD --Discontinue Zosyn -MRSA +, sputum + staph -Infectious disease consult given MRSA nares + and staph/MRSA in sputum -Vancomycin in interim, follow up with ID consult -Completed 5 days IV vancomycin Completed prednisone, EOT 12/04 Continue Nebs prn Continue home inhalers 12/10 respiratory status stable #JAVI on CKD III potentially secondary to liable hemodynamics noted throughout admission Monitor renal function Avoid nephrotoxic agents as able Ua ordered. Repeat Cr 12/10 crea increased to 2.4--> 2.5--> 2.6 Still has good urine output diuretics on hold Nephro on board #Hypokalemia *improved #hypomagnesemia *improved iso ongoing diarrheal illness which is improved Replete electrolytes as needed Monitor #Hypernatremia *downtrending -Poor PO intake and diarrhea, increased insensible losses -2.4L FWD, D5W held in hope to encourage intake, poor intake noted--- D5W discontinue -Encourage PO intake #Hypocalcemia #Chronic nephrolithiasis #Secondary hyperparathyroidism -Continue home potassium citrate -Continue home calcitrol and ca supplementation IV calcium now 380.8 Ensure endocrine follow up upon discharge #Hypotension #Recurrent falls likely secondary to orthostasis BP relatively low monitor on tele Started on midodrine, new hold parameters (SBP >130) --Continue to 10mg TID Cortisol 12.28 in am draw TSH 0.4 B12 >1500 #Acute metabolic encephalopathy *resolved Multifactorial: Multifocal pneumonia, possible aspiration,UTI, Rhabdo Multiple viral infections on going, rhabdo CT with consolidations noted, improving with IVF and IV abx stable at this time #Acute Diarrhea 2/2 Norovirus gastroenteritis *improved #Malnutrition Secondary to norovirus infection Stool negative for C. difficile Monitor volume status IV fluids as needed GI consult--continue conservative, viral enteritis maybe post enteritis IBS -OP follow up Continued home pancreatic enzymes Constipation Lactulose ordered #Right wrist pain *improved -xR without fracture -Voltaren and ice #Traumatic rhabdomyolysis *resolved #Mechanical fall CK [id number] #Troponin elevation resolved Likely due to Rhabdo, demand ischemia Monitor #sinus node dysfunction sp PPM Monitor on tele #Chronic diastolic heart failure h/o Pulmonary hypertension Monitor volume status Hold diuretics on hold: metolazone 2.5mg weekly, torsemide 20mg BID #LARRY Noncompliant with BiPAP Other chronic conditions: H/O gastric bypass Hypothyroidism--continue levothyroxine Possible functional disability given recurrent admissions/compliance issues DVT Px: Heparin SQ Code Status Full code Disposition pending Admission and Anticipated Discharge Date Admission Date: November 30, 2023 Subjective Follow-up for acute kidney injury, etc. Seen resting in bedside chair, comfortable States she feels okay overall Just weak No abdominal pain, nausea vomiting No other new symptoms Review of Systems Review of Systems: all noted and negative except for above Physical Exam Physical Exam: General- oriented x 2, not in distress, speaks in sentences with no effort or accessory muscle use Eyes- anicteric Neck- no JVD Lungs- clear breath sounds bilaterally Heart- normal rate, regular rhythm; no murmurs Abdomen- normal bowel sounds, nondistended, soft, no tenderness Extremities- no pretibial edema, no calf tenderness Neuro- alert, oriented x 2; no gross focal neurologic deficits Skin- warm & dry Results & Data Results & Data Vital Signs (Past 12 Hours) Vital Signs Temp Pulse Resp BP Pulse Ox O2 Del Method 12/11/23 17:12 36.6 C 60 18 144/78 H 98 Room Air 12/11/23 10:59 36.6 C 66 19 113/66 97 Room Air 12/11/23 07:30 Room Air 12/11/23 07:22 36.9 C 70 19 121/71 93 Room Air all noted and reviewed including below
--- NOTE | 2023-12-12 08:57 | Nephrology Progress Note ---
Date of Service December 12, 2023 Assessment & Plan (1) JAVI (acute kidney injury): Plan: * Non-oliguric. Clinical presentation suggestive of hemodynamically mediated ATN. * Volume status and electrolyte balance remain acceptable. Cr has stabilized at 2.6 (baseline 0.7). * Monitor PRP, UO (2) Norovirus: Plan: * N/V, diarrhea resolved (3) Cystitis: Plan: * 12/08/23 urine cx w/ ESBL E. Coli and Pseudomonas * 12/11/23 ID consultation recommends Meropenem only if febrile Admission and Anticipated Discharge Date Admission Date: November 30, 2023 Subjective Ms. Braswell was evaluated in her hospital room this morning. She denied fever, flank pain or dysuria. Her only concern was weakness Review of Systems Constitutional: no fever Eyes: no problem reported Ear, Nose, Mouth, Throat: no problem reported Respiratory: no cough and no dyspnea Cardiovascular: no chest pain Gastrointestinal: no abdominal pain, no nausea, no vomiting and no diarrhea/loose stools Genitourinary: no dysuria and no flank pain Integumentary: no rash Neurologic: no problem reported Physical Exam Constitutional: not in distress Eyes: PERRL, conjunctivae normal, anicteric sclerae ENMT: external ear and nose normal, oropharynx normal Neck: trachea midline, no thyromegaly Respiratory: normal respiratory effort, lungs clear to auscultation Cardiovascular: RRR, no murmur, no edema Gastrointestinal (Abdomen): normal bowel sounds, soft, nontender, no hepat osplenomegaly Skin: no rashes, warm and dry Neurologic: Speech / Cognition: normal speech and normal cognition Results & Data Vital Signs (Past 12 Hours) Vital Signs Temp Pulse Pulse Resp BP BP Pulse Ox 12/12/23 07:34 67 12/12/23 07:30 67 18 130/76 12/12/23 07:00 36.3 C L 67 19 134/77 94 12/12/23 02:56 36.6 C 74 16 144/78 H 96 12/11/23 23:03 36.7 C 67 17 146/80 H 90 12/11/23 21:57 67 O2 Del Method 12/12/23 07:34 12/12/23 07:30 Room Air 12/12/23 07:00 Room Air 12/12/23 02:56 Room Air 12/11/23 23:03 Room Air 12/11/23 21:57 Laboratory Results Laboratory Results - last 24 hr 12/12/23 09:12 WBC 6.63 RBC 3.32 L Hgb 9.5 L Hct 29.7 L MCV 89.5 MCH 28.6 MCHC 32.0 RDW Std Deviation 51.3 H RDW Coeff of David 16.3 H Plt Count 379 MPV 9.6 Sodium 139 Potassium 4.8 Chloride 109 H Carbon Dioxide 24 Anion Gap 6 BUN 32 H Creatinine 2.61 H Est Cr Clr Drug Dosing 17.0 Est GFR ( Amer) 20.6 Est GFR (Non-Af Amer) 17.8 BUN/Creatinine Ratio 12.3 Glucose 109 H Calcium 10.2 PG Care Time/CCT Total # of Minutes Spent Total Time Spent with Patient: Total time spent is greater than 50% in coordination of care (as documented) at patient's floor/unit and/or counseling patient: Coding Level of Care Code 70335 SUB INP/OBS CARE 3/50MIN Diagnoses JAVI (acute kidney injury) N17.9 Norovirus A08.11 Cystitis N30.90
[2023-12-12 09:44] LABS: Hematocrit (blood only) 29.7 % (37.0-47.0); Hemoglobin 9.5 g/dl (12.0-16.0); Mean Corpuscular Hemoglobin 28.6 pg (25.0-34.0); Mean Corpuscular Volume 89.5 fL (80.0-100.0); Mean Platelet Volume 9.6 fL (9.4-12.4); Platelet Count 379 K/uL (130-400); RDW Coefficient of Variation 16.3 % (11.5-14.5); RDW Standard Deviation 51.3 fL (36.4-46.3); Red Blood Count 3.32 M/uL (4.20-5.40); White Blood Count 6.63 K/ul (4.8-10.8)
[2023-12-12 09:56] LABS: BUN Creatinine Ratio 12.3 (10-20); Calcium 10.2 mg/dl (8.6-10.3); Est GFR (African American) 20.6 ml/min; Est GFR (Non-African American) 17.8 ml/min; Potassium 4.8 mmol/L (3.5-5.1)
--- NOTE | 2023-12-12 18:08 | Hospitalist Progress Note ---
Date of Service December 12, 2023 Assessment & Plan (1) Encephalopathy: Plan: per previous hospitalist notes with addendum: Ms Braswell is a 73 year old woman with medical history significant for chronic diastolic heart failure (EF 55 to 60%, TTE 2022), sinus node dysfunction sp PPM, asthma/COPD/ILD, LARRY, pulmonary hypertension, CKDIII (baseline creatinine 1.3), history of gastric bypass, hyperparathyroidism as per records, hypothyroidism, ankylosing spondylitis as per records, chronic anemia (baseline hemoglobin of 11), recurrent UTIs (ESBL E. coli infection), urolithiasis, history pancreatic insufficiency/malabsorption, mood/anxiety disorder, chronic pain/neuropathy who is admitted for evaluation of encephalopathy. Patient was found down on 11/29 and brought to ED. Notable issue with 1 week of diarrhea preceding admission. Patient's encephalopathy appears resolved. Episode of tremulousness and anxiety in the evening which have resolved as well. Patient with MRSA nare + and staph in sputum, as well as developing opacities on imaging. Continuing with [facility]. ID consulted- MRSA As of 12/04, patient refused rehab. Plan for discharge to home with home health. Multiple attempts have been made to encourage patient to reconsider rehab, however patient became tearful and angry. Patient attempting to move more in room, but is full assist at this time. Discussion with sister on phone revealed patient is consistently falling and being found in precarious situations. Patient ultimately agreeable to rehab placement. Patient is improving clinically, but notably hypotensive despite midodrine and volume resuscitation, as well as resolution of diarrhea. Cortisol normal for morning, TSH wnl, b12/folate normal. Review of anemia labs revealed notable iron deficiency which would explain hgb and poor recovery without signs of bleed. IV venofer now x 1, anemia labs. Unclear reason for JAVI, potentially secondary to hemodynamic instability. UA ordered #Acute hypoxic respiratory failure *improved #superimposed staph pneumoniae #COPD/ILD exacerbation secondary to HCAP/coronavirus OC43 #Recurrent UTI (H/O ESBL) --CT head:No evidence of acute intracranial pathology. --CT chest:Consolidations in bilateral lung bases along the bronchovascular pathways most concerning for an infectious etiology. -- BioFire positive for coronavirus OC43 --Normal ammonia --Elevated procalcitonin -- Blood culture negative to date Urine culture NGTD --Discontinue Zosyn -MRSA +, sputum + staph -Infectious disease consult given MRSA nares + and staph/MRSA in sputum -Vancomycin in interim, follow up with ID consult -Completed 5 days IV vancomycin Completed prednisone, EOT 12/04 Continue Nebs prn Continue home inhalers 12/11 respiratory status stable #JAVI on CKD III potentially secondary to liable hemodynamics noted throughout admission Monitor renal function Avoid nephrotoxic agents as able Ua ordered. Repeat Cr 12/11 crea increased to 2.4--> 2.5--> 2.6--> seems to have plateaud Still has good urine output diuretics on hold Nephro on board #Hypokalemia *improved #hypomagnesemia *improved iso ongoing diarrheal illness which is improved Replete electrolytes as needed Monitor #Hypernatremia *downtrending -Poor PO intake and diarrhea, increased insensible losses -2.4L FWD, D5W held in hope to encourage intake, poor intake noted--- D5W discontinue -Encourage PO intake #Hypocalcemia #Chronic nephrolithiasis #Secondary hyperparathyroidism -Continue home potassium citrate -Continue home calcitrol and ca supplementation IV calcium now 380.8 Ensure endocrine follow up upon discharge #Hypotension #Recurrent falls likely secondary to orthostasis BP relatively low monitor on tele Started on midodrine, new hold parameters (SBP >130) --Continue to 10mg TID Cortisol 12.28 in am draw TSH 0.4 B12 >1500 #Acute metabolic encephalopathy *resolved Multifactorial: Multifocal pneumonia, possible aspiration,UTI, Rhabdo Multiple viral infections on going, rhabdo CT with consolidations noted, improving with IVF and IV abx stable at this time #Acute Diarrhea 2/2 Norovirus gastroenteritis *improved #Malnutrition Secondary to norovirus infection Stool negative for C. difficile Monitor volume status IV fluids as needed GI consult--continue conservative, viral enteritis maybe post enteritis IBS -OP follow up Continued home pancreatic enzymes Constipation Lactulose ordered resolved #Right wrist pain *improved -xR without fracture -Voltaren and ice #Traumatic rhabdomyolysis *resolved #Mechanical fall CK 1283>1037>525 #Troponin elevation resolved Likely due to Rhabdo, demand ischemia Monitor #sinus node dysfunction sp PPM Monitor on tele #Chronic diastolic heart failure h/o Pulmonary hypertension Monitor volume status Hold diuretics on hold: metolazone 2.5mg weekly, torsemide 20mg BID #LARRY Noncompliant with BiPAP Other chronic conditions: H/O gastric bypass Hypothyroidism--continue levothyroxine Possible functional disability given recurrent admissions/compliance issues DVT Px: Heparin SQ Code Status Full code Disposition pending Admission and Anticipated Discharge Date Admission Date: November 30, 2023 Subjective ff up for pneumonia, etc seen resting in bed, comfortable watching tv feels fine overall no chest pain, dyspnea, palpitations, dizziness no abdominal pain, problems voiding no other symptoms Review of Systems Review of Systems: all noted and negative except for above Physical Exam Physical Exam: General- oriented x 3, not in distress, speaks in sentences with no effort or accessory muscle use Eyes- anicteric Neck- no JVD Lungs- clear BS BL no rales/wheezing Heart- normal rate, regular rhythm; no murmurs Abdomen- normal bowel sounds, nondistended, soft, nontender Extremities- no pretibial edema, no calf tenderness Neuro- alert, oriented x 3; no gross focal neurologic deficits Skin- warm & dry Results & Data Results & Data Vital Signs (Past 12 Hours) Vital Signs Temp Pulse Pulse Resp BP BP Pulse Ox 12/12/23 16:51 74 145/78 H 12/12/23 15:56 36.7 C 67 19 127/67 96 12/12/23 11:00 36.6 C 68 19 136/78 94 12/12/23 07:34 67 12/12/23 07:30 67 18 130/76 12/12/23 07:00 36.3 C L 67 19 134/77 94 O2 Del Method 12/12/23 16:51 Nasal Cannula 12/12/23 15:56 Room Air 12/12/23 11:00 Room Air 12/12/23 07:34 12/12/23 07:30 Room Air 12/12/23 07:00 Room Air all noted and reviewed including below
[2023-12-13] MEDS: HEPARIN 100 UNIT/ML 5ML FLUSH FLUSH PRN (06:27)
[2023-12-13 07:02] LABS: Hematocrit (blood only) 30.5 % (37.0-47.0); Hemoglobin 9.9 g/dl (12.0-16.0); Mean Corpuscular Hemoglobin 28.4 pg (25.0-34.0); Mean Corpuscular Hgb Conc 32.5 g/dL (32.0-36.0); Mean Corpuscular Volume 87.4 fL (80.0-100.0); Mean Platelet Volume 9.7 fL (9.4-12.4); Platelet Count 422 K/uL (130-400); RDW Coefficient of Variation 16.3 % (11.5-14.5); RDW Standard Deviation 50.6 fL (36.4-46.3); Red Blood Count 3.49 M/uL (4.20-5.40); White Blood Count 5.72 K/ul (4.8-10.8)
[2023-12-13 07:22] LABS: BUN Creatinine Ratio 13.8 (10-20); Calcium 11.2 mg/dl (8.6-10.3); Creatinine Clr Calc Pharmacy 16.2 ml/min; Est GFR (African American) 19.3 ml/min; Est GFR (Non-African American) 16.7 ml/min; Potassium 4.3 mmol/L (3.5-5.1)
--- NOTE | 2023-12-13 09:17 | Nephrology Progress Note ---
Date of Service December 13, 2023 Assessment & Plan (1) JAVI (acute kidney injury): Plan: * Non-oliguric. Clinical presentation suggestive of hemodynamically mediated ATN. * Volume status and electrolyte balance remain acceptable. Cr has stabilized at 2.6-2.7 (baseline 0.7). * Monitor PRP, UO. Encourage oral hydration * Recommend tapering Midodrine keeping SBP > 100 mm Hg (2) Norovirus: Plan: * N/V, diarrhea resolved (3) Cystitis: Plan: * 12/08/23 urine cx w/ ESBL E. Coli and Pseudomonas * 12/11/23 ID consultation recommends Meropenem only if febrile Admission and Anticipated Discharge Date Admission Date: November 30, 2023 Subjective Ms. Braswell was evaluated in her hospital room this morning. She denied fever, flank pain or dysuria. Ms. Braswell reports that her diarrhea has resolved. Her strength is mildly improved Review of Systems Constitutional: no fever Eyes: no problem reported Ear, Nose, Mouth, Throat: no problem reported Respiratory: no cough and no dyspnea Cardiovascular: no chest pain Gastrointestinal: no abdominal pain, no nausea, no vomiting and no diarrhea/loose stools Genitourinary: no dysuria and no flank pain Integumentary: no rash Neurologic: no problem reported Physical Exam Constitutional: not in distress Eyes: PERRL, conjunctivae normal, anicteric sclerae ENMT: external ear and nose normal, oropharynx normal Neck: trachea midline, no thyromegaly Respiratory: normal respiratory effort, lungs clear to auscultation Cardiovascular: RRR, no murmur, no edema Gastrointestinal (Abdomen): normal bowel sounds, soft, nontender, no hepatosplenomegaly Skin: no rashes, warm and dry Neurologic: Speech / Cognition: normal speech and normal cognition Results & Data Vital Signs (Past 12 Hours) Vital Signs Temp Pulse Pulse Resp BP Pulse Ox O2 Del Method 12/13/23 07:19 36.4 C L 63 19 151/75 H 96 Room Air 12/13/23 03:00 37 C 64 20 137/74 90 Room Air 12/12/23 23:00 36.4 C L 79 18 146/86 H 90 Room Air 12/12/23 21:56 69 Laboratory Results Laboratory Results - last 24 hr 12/12/23 12/13/23 09:12 06:19 WBC 6.63 5.72 RBC 3.32 L 3.49 L Hgb 9.5 L 9.9 L Hct 29.7 L 30.5 L MCV 89.5 87.4 MCH 28.6 28.4 MCHC 32.0 32.5 RDW Std Deviation 51.3 H 50.6 H RDW Coeff of David 16.3 H 16.3 H Plt Count 379 422 H MPV 9.6 9.7 Sodium 139 141 Potassium 4.8 4.3 Chloride 109 H 108 H Carbon Dioxide 24 25 Anion Gap 6 8 BUN 32 H 38 H Creatinine 2.61 H 2.75 H Est Cr Clr Drug Dosing 17.0 16.2 Est GFR ( Amer) 20.6 19.3 Est GFR (Non-Af Amer) 17.8 16.7 BUN/Creatinine Ratio 12.3 13.8 Glucose 109 H 92 Calcium 10.2 11.2 H PG Care Time/CCT Total # of Minutes Spent Total Time Spent with Patient: Total time spent is greater than 50% in coordination of care (as documented) at patient's floor/unit and/or counseling patient: Coding Level of Care Code 58165 SUB INP/OBS CARE 3/50MIN Diagnoses JAVI (acute kidney injury) N17.9 Norovirus A08.11 Cystitis N30.90
--- NOTE | 2023-12-13 14:07 | Hospitalist Progress Note ---
Date of Service December 13, 2023 Assessment & Plan (1) Encephalopathy: Plan: per previous hospitalist notes with addendum: Ms Braswell is a 73 year old woman with medical history significant for chronic diastolic heart failure (EF 55 to 60%, TTE 2022), sinus node dysfunction sp PPM, asthma/COPD/ILD, LARRY, pulmonary hypertension, CKDIII (baseline creatinine 1.3), history of gastric bypass, hyperparathyroidism as per records, hypothyroidism, ankylosing spondylitis as per records, chronic anemia (baseline hemoglobin of 11), recurrent UTIs (ESBL E. coli infection), urolithiasis, history pancreatic insufficiency/malabsorption, mood/anxiety disorder, chronic pain/neuropathy who is admitted for evaluation of encephalopathy. Patient was found down on 11/29 and brought to ED. Notable issue with 1 week of diarrhea preceding admission. Patient's encephalopathy appears resolved. Episode of tremulousness and anxiety in the evening which have resolved as well. Patient with MRSA nare + and staph in sputum, as well as developing opacities on imaging. Continuing with [facility]. ID consulted- MRSA As of 12/04, patient refused rehab. Plan for discharge to home with home health. Multiple attempts have been made to encourage patient to reconsider rehab, however patient became tearful and angry. Patient attempting to move more in room, but is full assist at this time. Discussion with sister on phone revealed patient is consistently falling and being found in precarious situations. Patient ultimately agreeable to rehab placement. Patient is improving clinically, but notably hypotensive despite midodrine and volume resuscitation, as well as resolution of diarrhea. Cortisol normal for morning, TSH wnl, b12/folate normal. Review of anemia labs revealed notable iron deficiency which would explain hgb and poor recovery without signs of bleed. IV venofer now x 1, anemia labs. Unclear reason for JAVI, potentially secondary to hemodynamic instability. UA ordered #Acute hypoxic respiratory failure *improved #superimposed staph pneumoniae #COPD/ILD exacerbation secondary to HCAP/coronavirus OC43 #Recurrent UTI (H/O ESBL) --CT head:No evidence of acute intracranial pathology. --CT chest:Consolidations in bilateral lung bases along the bronchovascular pathways most concerning for an infectious etiology. -- BioFire positive for coronavirus OC43 --Normal ammonia --Elevated procalcitonin -- Blood culture negative to date Urine culture NGTD --Discontinue Zosyn -MRSA +, sputum + staph -Infectious disease consult given MRSA nares + and staph/MRSA in sputum -Vancomycin in interim, follow up with ID consult -Completed 5 days IV vancomycin Completed prednisone, EOT 12/04 Continue Nebs prn Continue home inhalers 12/12 respiratory status stable #JAVI on CKD III potentially secondary to liable hemodynamics noted throughout admission Monitor renal function Avoid nephrotoxic agents as able Ua ordered. Repeat Cr 12/12 crea increased to2.4--> 2.5--> 2.6--> 2.7 Still has good urine output diuretics on hold Nephro on board #Hypokalemia *improved #hypomagnesemia *improved iso ongoing diarrheal illness which is improved Replete electrolytes as needed Monitor #Hypernatremia *downtrending -Poor PO intake and diarrhea, increased insensible losses -2.4L FWD, D5W held in hope to encourage intake, poor intake noted--- D5W discontinue -Encourage PO intake #Hypocalcemia #Chronic nephrolithiasis #Secondary hyperparathyroidism -Continue home potassium citrate -Continue home calcitrol and ca supplementation IV calcium now 380.8 Ensure endocrine follow up upon discharge #Hypotension #Recurrent falls likely secondary to orthostasis BP relatively low monitor on tele Started on midodrine, new hold parameters (SBP >130) --Continue to 10mg TID Cortisol 12.28 in am draw TSH 0.4 B12 >1500 #Acute metabolic encephalopathy *resolved Multifactorial: Multifocal pneumonia, possible aspiration,UTI, Rhabdo Multiple viral infections on going, rhabdo CT with consolidations noted, improving with IVF and IV abx stable at this time #Acute Diarrhea 2/2 Norovirus gastroenteritis *improved #Malnutrition Secondary to norovirus infection Stool negative for C. difficile Monitor volume status IV fluids as needed GI consult--continue conservative, viral enteritis maybe post enteritis IBS -OP follow up Continued home pancreatic enzymes Constipation Lactulose ordered resolved #Right wrist pain *improved -xR without fracture -Voltaren and ice #Traumatic rhabdomyolysis *resolved #Mechanical fall CK 1283>1037>525 #Troponin elevation resolved Likely due to Rhabdo, demand ischemia Monitor #sinus node dysfunction sp PPM Monitor on tele #Chronic diastolic heart failure h/o Pulmonary hypertension Monitor volume status Hold diuretics on hold: metolazone 2.5mg weekly, torsemide 20mg BID #LARRY Noncompliant with BiPAP Other chronic conditions: H/O gastric bypass Hypothyroidism--continue levothyroxine Possible functional disability given recurrent admissions/compliance issues DVT Px: Heparin SQ Code Status Full code Disposition pending Admission and Anticipated Discharge Date Admission Date: November 30, 2023 Subjective ff up for javi, etc seen resting in bed, comfortable states she feels fine overall no chest pain, dyspnea, palpitations, dizziness no abdominal pain no urinary complaints Review of Systems Review of Systems: all noted and negative except for above Physical Exam Physical Exam: General- oriented x 3, not in distress, speaks in sentences with no effort or accessory muscle use Eyes- anicteric Neck- no JVD Lungs- clear breath sounds bilaterally Heart- normal rate, regular rhythm; no murmurs Abdomen- normal bowel sounds, nondistended, soft, no tenderness Extremities- no pretibial edema, no calf tenderness Neuro- alert, oriented x 3; no gross focal neurologic deficits Skin- warm & dry Results & Data Results & Data Vital Signs (Past 12 Hours) Vital Signs Temp Pulse Resp BP BP Pulse Ox O2 Del Method 12/13/23 11:40 36.5 C 62 19 148/73 H 94 Room Air 12/13/23 07:19 36.4 C L 63 19 151/75 H 96 Room Air 12/13/23 03:00 37 C 64 20 137/74 90 Room Air all noted and reviewed including below
[2023-12-13] MEDS: MIDODRINE HCL 2.5 MG TAB PO SCH (17:17)
[2023-12-14 07:38] LABS: Hematocrit (blood only) 30.8 % (37.0-47.0); Hemoglobin 10.1 g/dl (12.0-16.0); Mean Corpuscular Hemoglobin 28.5 pg (25.0-34.0); Mean Corpuscular Hgb Conc 32.8 g/dL (32.0-36.0); Mean Corpuscular Volume 86.8 fL (80.0-100.0); Mean Platelet Volume 9.7 fL (9.4-12.4); Platelet Count 412 K/uL (130-400); RDW Standard Deviation 49.4 fL (36.4-46.3); Red Blood Count 3.55 M/uL (4.20-5.40); White Blood Count 5.43 K/ul (4.8-10.8)
[2023-12-14 07:52] LABS: BUN Creatinine Ratio 13.8 (10-20); Calcium 11.3 mg/dl (8.6-10.3); Creatinine Clr Calc Pharmacy 13.8 ml/min; Est GFR (African American) 16.7 ml/min; Est GFR (Non-African American) 14.4 ml/min; Potassium 3.9 mmol/L (3.5-5.1)
--- NOTE | 2023-12-14 09:09 | Nephrology Progress Note ---
Date of Service December 14, 2023 Assessment & Plan (1) JAVI (acute kidney injury): Plan: * Clinical presentation suggestive of hemodynamically mediated ATN * Urine volume was not measured last 24 hours. Will request I&O's * Patient remains in injury phase of ATN. Cr has risen to 3.1. Electrolyte balance remain acceptable. Patient appears clinically volume contracted * Will provide 1 L Plasmalyte IV * Monitor PRP, UO. Encourage oral hydration * Recommend tapering Midodrine keeping SBP > 100 mm Hg (2) Norovirus: Plan: * N/V, diarrhea resolved (3) Cystitis: Plan: * 12/08/23 urine cx w/ ESBL E. Coli and Pseudomonas * 12/11/23 ID consultation recommends Meropenem only if febrile Admission and Anticipated Discharge Date Admission Date: November 30, 2023 Subjective Ms. Braswell was evaluated in her hospital room this morning. She denied fever, flank pain or dysuria. Ms. Braswell reports that diarrhea has resolved. She reports a good appetite Review of Systems Constitutional: no fever Eyes: no problem reported Ear, Nose, Mouth, Throat: no problem reported Respiratory: no cough and no dyspnea Cardiovascular: no chest pain Gastrointestinal: no abdominal pain, no nausea, no vomiting and no diarrhea/loose stools Genitourinary: no dysuria and no flank pain Integumentary: no rash Neurologic: no problem reported Physical Exam Constitutional: not in distress Eyes: PERRL, conjunctivae normal, anicteric sclerae ENMT: external ear and nose normal, oropharynx normal Neck: trachea midline, no thyromegaly Respiratory: normal respiratory effort, lungs clear to auscultation Cardiovascular: RRR, no murmur, no edema Gastrointestinal (Abdomen): normal bowel sounds, soft, nontender, no hepatosplenomegaly Skin: no rashes, warm and dry Neurologic: Speech / Cognition: normal speech and normal cognition Results & Data Vital Signs (Past 12 Hours) Vital Signs Temp Pulse Pulse Resp BP Pulse Ox O2 Del Method 12/14/23 07:49 36.7 C 61 18 151/76 H 94 Room Air 12/14/23 07:19 60 12/14/23 03:00 36.6 C 62 19 154/81 H 92 Room Air 12/13/23 22:04 65 Laboratory Results Laboratory Results - last 24 hr 12/14/23 06:36 WBC 5.43 RBC 3.55 L Hgb 10.1 L Hct 30.8 L MCV 86.8 MCH 28.5 MCHC 32.8 RDW Std Deviation 49.4 H RDW Coeff of David 16.0 H Plt Count 412 H MPV 9.7 Sodium 142 Potassium 3.9 Chloride 107 Carbon Dioxide 27 Anion Gap 8 BUN 43 H Creatinine 3.11 H D Est Cr Clr Drug Dosing 13.8 Est GFR ( Amer) 16.7 Est GFR (Non-Af Amer) 14.4 BUN/Creatinine Ratio 13.8 Glucose 93 Calcium 11.3 H Diagnostic Findings 12/08/23 Renal US: There is marked and asymmetric cortical atrophy of the right kidney as compared to the left. The right kidney measures 6.3 cm and the left kidney measures 11.4 cm. There is no hydronephrosis. No shadowing renal calculi are clearly identified. Renal calcifications were better appreciated on the recent CT scan. A 2.0 cm cyst is seen in the right upper pole. There is no sonographic evidence of contour deforming renal mass lesion. No perinephric fluid is identified. The bladder is distended but otherwise normal in appearance. Bilateral ureteral jets were seen. The bladder volume measures 422 cc. PG Care Time/CCT Total # of Minutes Spent Total Time Spent with Patient: Total time spent is greater than 50% in coordination of care (as documented) at patient's floor/unit and/or counseling patient: Coding Level of Care Code 67290 SUB INP/OBS CARE 350MIN Diagnoses JAVI (acute kidney injury) N17.9 Norovirus A08.11 Cystitis N30.90
[2023-12-14] MEDS: PLASMA-LYTE A 1,000 ML IV SCH (12:32)
[2023-12-14] MEDS: MIDODRINE HCL 2.5 MG TAB PO SCH (13:14)
[2023-12-14] MEDS: FLUTICASONE PROPIONATE NA SPR 16 GM BTL SCH (17:00)
[2023-12-14] MEDS: oxyCODONE HCL IR 5 MG TAB (IMMEDIATE RELEASE) PO STA (17:00)
--- NOTE | 2023-12-14 18:09 | Hospitalist Progress Note ---
Date of Service December 14, 2023 Assessment & Plan (1) Encephalopathy: Plan: per previous hospitalist notes with addendum: Ms Braswell is a 73 year old woman with medical history significant for chronic diastolic heart failure (EF 55 to 60%, TTE 2022), sinus node dysfunction sp PPM, asthma/COPD/ILD, LARRY, pulmonary hypertension, CKDIII (baseline creatinine 1.3), history of gastric bypass, hyperparathyroidism as per records, hypothyroidism, ankylosing spondylitis as per records, chronic anemia (baseline hemoglobin of 11), recurrent UTIs (ESBL E. coli infection), urolithiasis, history pancreatic insufficiency/malabsorption, mood/anxiety disorder, chronic pain/neuropathy who is admitted for evaluation of encephalopathy. Patient was found down on 11/29 and brought to ED. Notable issue with 1 week of diarrhea preceding admission. Patient's encephalopathy appears resolved. Episode of tremulousness and anxiety in the evening which have resolved as well. Patient with MRSA nare + and staph in sputum, as well as developing opacities on imaging. Continuing with [facility]. ID consulted- MRSA As of 12/04, patient refused rehab. Plan for discharge to home with home health. Multiple attempts have been made to encourage patient to reconsider rehab, however patient became tearful and angry. Patient attempting to move more in room, but is full assist at this time. Discussion with sister on phone revealed patient is consistently falling and being found in precarious situations. Patient ultimately agreeable to rehab placement. Patient is improving clinically, but notably hypotensive despite midodrine and volume resuscitation, as well as resolution of diarrhea. Cortisol normal for morning, TSH wnl, b12/folate normal. Review of anemia labs revealed notable iron deficiency which would explain hgb and poor recovery without signs of bleed. IV venofer now x 1, anemia labs. Unclear reason for JAVI, potentially secondary to hemodynamic instability. UA ordered #Acute hypoxic respiratory failure *improved #superimposed staph pneumoniae #COPD/ILD exacerbation secondary to HCAP/coronavirus OC43 #Recurrent UTI (H/O ESBL) --CT head:No evidence of acute intracranial pathology. --CT chest:Consolidations in bilateral lung bases along the bronchovascular pathways most concerning for an infectious etiology. -- BioFire positive for coronavirus OC43 --Normal ammonia --Elevated procalcitonin -- Blood culture negative to date Urine culture NGTD --Discontinue Zosyn -MRSA +, sputum + staph -Infectious disease consult given MRSA nares + and staph/MRSA in sputum -Vancomycin in interim, follow up with ID consult -Completed 5 days IV vancomycin Completed prednisone, EOT 12/04 Continue Nebs prn Continue home inhalers 12/13 respiratory status stable Reports generalized headache associated with nasal symptoms-ongoing even at home Possible chronic sinusitis Flonase twice daily As needed oxycodone as patient's medication regimen limited in light of acute renal failure, tramadol cannot be used as well as patient is on Lamictal and Cymbalta #JAVI on CKD III potentially secondary to liable hemodynamics noted throughout admission Monitor renal function Avoid nephrotoxic agents as able Ua ordered. Repeat Cr 12/13 crea increased to2.4--> 2.5--> 2.6--> 2.7--3.1 Plasma-Lyte ordered Hold diuretics Monitor closely #Hypokalemia *improved #hypomagnesemia *improved iso ongoing diarrheal illness which is improved Replete electrolytes as needed Monitor #Hypernatremia *downtrending -Poor PO intake and diarrhea, increased insensible losses -2.4L FWD, D5W held in hope to encourage intake, poor intake noted--- D5W discontinue -Encourage PO intake #Hypocalcemia #Chronic nephrolithiasis #Secondary hyperparathyroidism -Continue home potassium citrate -Continue home calcitrol and ca supplementation IV calcium now 380.8 Ensure endocrine follow up upon discharge #Hypotension #Recurrent falls likely secondary to orthostasis BP relatively low monitor on tele Started on midodrine, new hold parameters (SBP >130) --Continue to 10mg TID Cortisol 12.28 in am draw TSH 0.4 B12 >1500 12/13 Being weaned off midodrine Currently on 2.5 mg p.o. 3 times daily Maintain systolic BP more than 100 per nephro #Acute metabolic encephalopathy *resolved Multifactorial: Multifocal pneumonia, possible aspiration,UTI, Rhabdo Multiple viral infections on going, rhabdo CT with consolidations noted, improving with IVF and IV abx stable at this time #Acute Diarrhea 2/2 Norovirus gastroenteritis *improved #Malnutrition Secondary to norovirus infection Stool negative for C. difficile Monitor volume status IV fluids as needed GI consult--continue conservative, viral enteritis maybe post enteritis IBS -OP follow up Continued home pancreatic enzymes Constipation Lactulose ordered resolved #Right wrist pain *improved -xR without fracture -Voltaren and ice #Traumatic rhabdomyolysis *resolved #Mechanical fall CK [id number] #Troponin elevation resolved Likely due to Rhabdo, demand ischemia Monitor #sinus node dysfunction sp PPM Monitor on tele #Chronic diastolic heart failure h/o Pulmonary hypertension Monitor volume status Hold diuretics on hold: metolazone 2.5mg weekly, torsemide 20mg BID #LARRY Noncompliant with BiPAP Other chronic conditions: H/O gastric bypass Hypothyroidism--continue levothyroxine Possible functional disability given recurrent admissions/compliance issues DVT Px: Heparin SQ Code Status Full code Disposition pending Admission and Anticipated Discharge Date Admission Date: November 30, 2023 Subjective Follow-up for acute renal failure, etc. Resting in bed, sitting up Not in distress, comfortable Reports generalized headache today associated with nasal congestion and nasal drainage Denies fevers or chills No other new symptom Review of Systems Review of Systems: all noted and negative except for above Physical Exam Physical Exam: General- oriented x 3, not in distress, speaks in sentences with no effort or accessory muscle use Face-mild maxillary sinus tenderness on the right Eyes- anicteric Neck- no JVD Lungs- clear BS bilaterally,, no crackles or wheezing Heart- normal rate, regular rhythm; no murmurs Abdomen- normal bowel sounds, nondistended, soft, nontender Extremities- no pretibial edema, no calf tenderness Neuro- alert, oriented x 3; no gross focal neurologic deficits Skin- warm & dry Results & Data Results & Data Vital Signs (Past 12 Hours) Vital Signs Temp Pulse Pulse Resp BP BP Pulse Ox 12/14/23 15:50 36.5 C 68 19 147/71 H 96 12/14/23 15:00 60 12/14/23 10:37 36.4 C L 60 18 127/71 95 12/14/23 07:49 36.7 C 61 18 151/76 H 94 12/14/23 07:19 60 O2 Del Method 12/14/23 15:50 Room Air 12/14/23 15:00 12/14/23 10:37 Room Air 12/14/23 07:49 Room Air 12/14/23 07:19 all noted and reviewed including below
[2023-12-14 19:48] LABS: Creatinine Urine Random 35.7 mg/dl; Protein Creatinine Ratio Urine 0.7 (0-0.2); Total Protein Urine Random 24.4 mg/dl (0-11.9)
[2023-12-15 06:49] LABS: Hematocrit (blood only) 30.8 % (37.0-47.0); Mean Corpuscular Hemoglobin 28.7 pg (25.0-34.0); Mean Corpuscular Hgb Conc 32.5 g/dL (32.0-36.0); Mean Corpuscular Volume 88.3 fL (80.0-100.0); Mean Platelet Volume 9.5 fL (9.4-12.4); Platelet Count 354 K/uL (130-400); RDW Coefficient of Variation 16.2 % (11.5-14.5); RDW Standard Deviation 50.5 fL (36.4-46.3); Red Blood Count 3.49 M/uL (4.20-5.40); White Blood Count 6.67 K/ul (4.8-10.8)
[2023-12-15 06:57] LABS: Appearance Urine Clear (Clear); Bacteria Urine Automated 1+ (Negative); Bilirubin Urine Negative (Negative); Blood Urine Trace (Negative); Color Urine Yellow; Glucose Urine UA Negative (Negative); Ketones Urine Negative (Negative); Leukocyte Esterase Urine 3+ (Negative); Nitrite Urine Negative (Negative); Protein Urine Trace (Negative); RBC Urine Automated 0-4 /hpf (0-4); Specific Gravity Urine 1.011 (1.000-1.030); Urobilinogen Urine Negative (Negative); WBC Urine Automated >30 /hpf (0-5)
[2023-12-15 07:16] LABS: Albumin Globulin Ratio 1.2 (0.9-2); Albumin Level 3.1 gm/dl (3.4-5.0); Bilirubin,Total 0.4 mg/dl (0.2-1.0); Calcium 10.5 mg/dl (8.6-10.3); Creatinine Clr Calc Pharmacy 15.6 ml/min; Est GFR (African American) 18.5 ml/min; Globulin 2.5 gm/dl (2.5-4.0); Potassium 3.6 mmol/L (3.5-5.1); Total Protein 5.6 gm/dl (6.0-8.3)
--- NOTE | 2023-12-15 08:59 | Nephrology Progress Note ---
Date of Service December 15, 2023 Assessment & Plan (1) JAVI (acute kidney injury): Plan: * Clinical presentation suggestive of hemodynamically mediated ATN * Urine volume 1500 cc last 24 hours. Patient was 207 cc volume + overnight * Patient remains clinically volume contracted. FeNa 5% but patient did respond to gentle hydration. Cr has improved from 3.11 to 2.85 overnight. Electrolyte balance remain acceptable * Hold IVF and obtain CXR this am * Monitor PRP, UO. Encourage oral hydration * Recommend tapering Midodrine to off keeping SBP > 100 mm Hg (2) Norovirus: Plan: * N/V, diarrhea resolved (3) Cystitis: Plan: * 12/08/23 urine cx w/ ESBL E. Coli and Pseudomonas * 12/11/23 ID consultation recommends Meropenem only if febrile Admission and Anticipated Discharge Date Admission Date: November 30, 2023 Subjective Ms. Braswell was evaluated in her hospital room this morning. She was sitting up in a chair and denied fever, flank pain or dysuria. Ms. Braswell reports that diarrhea has resolved. She does have mild HULL but has not required O2. Review of Systems Constitutional: no fever Eyes: no problem reported Ear, Nose, Mouth, Throat: no problem reported Respiratory: no cough and no dyspnea Cardiovascular: no chest pain Gastrointestinal: no abdominal pain, no nausea, no vomiting and no diarrhea/loose stools Genitourinary: no dysuria and no flank pain Integumentary: no rash Neurologic: no problem reported Physical Exam Constitutional: not in distress Eyes: PERRL, conjunctivae normal, anicteric sclerae ENMT: external ear and nose normal, oropharynx normal Neck: trachea midline, no thyromegaly Respiratory: normal respiratory effort, lungs clear to auscultation Cardiovascular: RRR, no murmur, no edema Gastrointestinal (Abdomen): normal bowel sounds, soft, nontender, no hepatosplenomegaly Skin: no rashes, warm and dry Neurologic: Speech / Cognition: normal speech and normal cognition Results & Data Vital Signs (Past 12 Hours) Vital Signs Temp Pulse Pulse Resp BP BP Pulse Ox 12/15/23 07:43 12/15/23 07:33 36.6 C 61 18 155/72 H 92 12/15/23 02:30 36.9 C 60 18 161/76 H 96 12/14/23 22:57 36.2 C L 62 18 149/77 H 94 12/14/23 21:59 64 O2 Del Method 12/15/23 07:43 Room Air 12/15/23 07:33 Room Air 12/15/23 02:30 Room Air 12/14/23 22:57 Room Air 12/14/23 21:59 Laboratory Results Laboratory Results - last 24 hr 12/14/23 12/15/23 12/15/23 19:10 06:01 06:33 WBC 6.67 RBC 3.49 L Hgb 10.0 L Hct 30.8 L MCV 88.3 MCH 28.7 MCHC 32.5 RDW Std Deviation 50.5 H RDW Coeff of David 16.2 H Plt Count 354 MPV 9.5 Sodium 142 Potassium 3.6 Chloride 107 Carbon Dioxide 27 Anion Gap 8 BUN 40 H Creatinine 2.85 H Est Cr Clr Drug Dosing 15.6 Est GFR ( Amer) 18.5 Est GFR (Non-Af Amer) 16.0 BUN/Creatinine Ratio 14.0 Glucose 91 Calcium 10.5 H Total Bilirubin 0.4 AST 19 ALT 11 Alkaline Phosphatase 49 Total Protein 5.6 L Albumin 3.1 L Globulin 2.5 Albumin/Globulin Ratio 1.2 Urine Color Yellow Urine Appearance Clear Urine pH 7.0 Ur Specific [place] 1.011 Urine Protein Trace H Urine Glucose (UA) Negative Urine Ketones Negative Urine Blood Trace H Urine Nitrite Negative Urine Bilirubin Negative Urine Urobilinogen Negative Ur Leukocyte Esterase 3+ H Urine WBC (Auto) >30 H Urine RBC (Auto) 0-4 U Hyaline Cast (Auto) 1-5 U Epithel Cells (Auto) 5-10 H Urine Bacteria (Auto) 1+ H Ur Random Creatinine 35.7 U Random Total Protein 24.4 H Ur Random Sodium 83 Protein/Creatinin Ratio 0.7 H PG Care Time/CCT Total # of Minutes Spent Total Time Spent with Patient: Total time spent is greater than 50% in coordination of care (as documented) at patient's floor/unit and/or counseling patient: Coding Level of Care Code 73583 SUB INP/OBS CARE 3/50MIN Diagnoses JAVI (acute kidney injury) N17.9 Norovirus A08.11 Cystitis N30.90
--- NOTE | 2023-12-15 10:52 | XRay Report ---
XR chest 1V portable HISTORY: 73 years-old Female dyspnea acute shortness of breath COMPARISON: Chest CT 11/30/2023 TECHNIQUE: AP view of the chest FINDINGS: Cardiac silhouette is mildly enlarged. Right IJ [id number] catheter is stable. Cardiac loop record er device. Upper abdominal surgical clips and shweta. Mild chronic interstitial coarsening. No pneum othorax, pleural effusion, or overt pulmonary edema. Improved aeration of the lung bases compared to the prior study. IMPRESSION: 1. Cardiomegaly without overt pulmonary edema. 2. Improving bibasilar opacities compared to the 11/30/2023 study. ACT 112: Negative or not required by law. The above report was generated using voice recognition software. It may contain grammatical, syntax o r spelling errors. Electronically signed by: Soham Kirby M.D. 12/15/2023 10:51 AM
--- NOTE | 2023-12-15 15:06 | Hospitalist Progress Note ---
Date of Service December 15, 2023 Assessment & Plan (1) Encephalopathy: Plan: per previous hospitalist notes with addendum: Ms Braswell is a 73 year old woman with medical history significant for chronic diastolic heart failure (EF 55 to 60%, TTE 2022), sinus node dysfunction sp PPM, asthma/COPD/ILD, LARRY, pulmonary hypertension, CKDIII (baseline creatinine 1.3), history of gastric bypass, hyperparathyroidism as per records, hypothyroidism, ankylosing spondylitis as per records, chronic anemia (baseline hemoglobin of 11), recurrent UTIs (ESBL E. coli infection), urolithiasis, history pancreatic insufficiency/malabsorption, mood/anxiety disorder, chronic pain/neuropathy who is admitted for evaluation of encephalopathy. Patient was found down on 11/29 and brought to ED. Notable issue with 1 week of diarrhea preceding admission. Patient's encephalopathy appears resolved. Episode of tremulousness and anxiety in the evening which have resolved as well. Patient with MRSA nare + and staph in sputum, as well as developing opacities on imaging. Continuing with [facility]. ID consulted- MRSA As of 12/04, patient refused rehab. Plan for discharge to home with home health. Multiple attempts have been made to encourage patient to reconsider rehab, however patient became tearful and angry. Patient attempting to move more in room, but is full assist at this time. Discussion with sister on phone revealed patient is consistently falling and being found in precarious situations. Patient ultimately agreeable to rehab placement. Patient is improving clinically, but notably hypotensive despite midodrine and volume resuscitation, as well as resolution of diarrhea. Cortisol normal for morning, TSH wnl, b12/folate normal. Review of anemia labs revealed notable iron deficiency which would explain hgb and poor recovery without signs of bleed. IV venofer now x 1, anemia labs. Unclear reason for JAVI, potentially secondary to hemodynamic instability. UA ordered Acute hypoxic respiratory failure, resolved Pneumonia, staph COPD/ILD exacerbation secondary to HCAP/coronavirus OC43 Recurrent UTI (H/O ESBL) --CT head:No evidence of acute intracranial pathology. --CT chest:Consolidations in bilateral lung bases along the bronchovascular pathways most concerning for an infectious etiology. -- BioFire positive for coronavirus OC43 --Normal ammonia --Elevated procalcitonin -- Blood culture negative to date Urine culture NGTD --Discontinue Zosyn -MRSA +, sputum + staph -Infectious disease consult given MRSA nares + and staph/MRSA in sputum -Vancomycin in interim, follow up with ID consult -Completed 5 days IV vancomycin Completed prednisone, EOT 12/04 Continue Nebs prn Continue home inhalers 12/14 Has remained stable JAVI on CKD III potentially secondary to episode of hypotension, vancomycin 12/14 crea increased to 2.4--> 2.5--> 2.6--> 2.7--3.1 Plasma-Lyte ordered 12/13 Creatinine improved today, 2.8 Nephrology service on board Diuretics on hold Persistent headache Reports generalized headache associated with nasal symptoms-chronic Possible chronic sinusitis Flonase twice daily As needed oxycodone as patient's medication regimen limited in light of acute renal failure, tramadol cannot be used as well as patient is on Lamictal and Cymbalta -Had an outpatient appointment for neurology consult, will request neurology inpatient consult #Hypotension #Recurrent falls likely secondary to orthostasis BP relatively low monitor on tele Started on midodrine, new hold parameters (SBP >130) --Continue to 10mg TID Cortisol 12.28 in am draw TSH 0.4 B12 >1500 12/14 Being weaned off midodrine Currently on 2.5 mg p.o. 3 times daily Maintain systolic BP more than 100 per nephro Can likely DC midodrine in 1 to 2 days #Acute metabolic encephalopathy *resolved Multifactorial: Multifocal pneumonia, possible aspiration,UTI, Rhabdo Multiple viral infections on going, rhabdo CT with consolidations noted, improving with IVF and IV abx stable at this time #Acute Diarrhea 2/2 Norovirus gastroenteritis *improved #Malnutrition Secondary to norovirus infection Stool negative for C. difficile GI consult--continue conservative, viral enteritis maybe post enteritis IBS -OP follow up Continued home pancreatic enzymes #Hypocalcemia #Chronic nephrolithiasis #Secondary hyperparathyroidism -Continue home potassium citrate -Continue home calcitrol and ca supplementation IV calcium 380.8 Ensure endocrine follow up upon discharge #Traumatic rhabdomyolysis *resolved #Mechanical fall CK [id number] #sinus node dysfunction sp PPM #Chronic diastolic heart failure h/o Pulmonary hypertension Monitor volume status diuretics on hold: metolazone 2.5mg weekly, torsemide 20mg BID #LARRY Noncompliant with BiPAP Other chronic conditions: H/O gastric bypass Hypothyroidism--continue levothyroxine Possible functional disability given recurrent admissions/compliance issues DVT Px: Heparin SQ Code Status Full code Disposition pending Will need to transition to custodial facility Admission and Anticipated Discharge Date Admission Date: November 30, 2023 Subjective Follow-up for pneumonia, acute renal failure etc. Seen resting in chair, sleeping but easily awakened Not in distress States she continues to have headaches Nasal congestion seems to be improving No fevers or chills, no neck pain no chest pain, dyspnea, palpitations, dizziness No other new symptoms Review of Systems Review of Systems: all noted and negative except for above Physical Exam Physical Exam: General- oriented x 3, not in distress, speaks in sentences with no effort or accessory muscle use Eyes- anicteric Neck- no JVD Lungs- clear BS BL no rales/wheezing Heart- normal rate, regular rhythm; no murmurs Abdomen- normal bowel sounds, nondistended, soft, nontender Extremities- no pretibial edema, no calf tenderness Neuro- alert, oriented x 3; no gross focal neurologic deficits Skin- warm & dry Results & Data Results & Data Vital Signs (Past 12 Hours) Vital Signs Temp Pulse Pulse Resp BP BP Pulse Ox 12/15/23 11:16 36.2 C L 59 L 16 129/73 96 12/15/23 10:45 96 12/15/23 08:00 68 12/15/23 07:43 12/15/23 07:33 36.6 C 61 18 155/72 H 92 O2 Del Method 12/15/23 11:16 Room Air 12/15/23 10:45 12/15/23 08:00 12/15/23 07:43 Room Air 12/15/23 07:33 Room Air all noted and reviewed including below
[2023-12-16] MEDS: IPRATROPIUM BROMIDE NEB SOLN 0.02% 0.5MG/2.5ML VIAL INH PRN (08:10)
[2023-12-16] MEDS: LEVALBUTEROL 1.25 MG/3 ML NEB NEB PRN (08:11)
[2023-12-16 08:51] LABS: BUN Creatinine Ratio 14.8 (10-20); Calcium 10.4 mg/dl (8.6-10.3); Creatinine Clr Calc Pharmacy 15.2 ml/min; Est GFR (African American) 18.7 ml/min; Est GFR (Non-African American) 16.1 ml/min; Potassium 3.6 mmol/L (3.5-5.1)
--- NOTE | 2023-12-16 09:09 | Nephrology Progress Note ---
Date of Service December 16, 2023 Assessment & Plan (1) JAVI (acute kidney injury): Plan: * Clinical presentation suggestive of hemodynamically mediated ATN * Nonoliguric. Urine volume 1651 cc last shift * Patient remains clinically volume contracted. Cr stable at 2.85 overnight. Electrolyte balance remain acceptable. Encouraged 1-2 L free water intake daily * 12/15/23 CXR - no CHF or infiltrate * Monitor PRP, UO * Recommend tapering Midodrine to off keeping SBP > 100 mm Hg (2) Norovirus: Plan: * N/V, diarrhea resolved (3) Cystitis: Plan: * 12/08/23 urine cx w/ ESBL E. Coli and Pseudomonas * 12/11/23 ID consultation recommends Meropenem only if febrile Admission and Anticipated Discharge Date Admission Date: November 30, 2023 Subjective Ms. Braswell was evaluated in her hospital room this morning. She was sitting up in a chair and denied fever, flank pain or dysuria. She tolerated gentle hydration yesterday without worsening dyspnea or progressive LE swelling Review of Systems Constitutional: no fever Eyes: no problem reported Ear, Nose, Mouth, Throat: no problem reported Respiratory: no cough and no dyspnea Cardiovascular: no chest pain Gastrointestinal: no abdominal pain, no nausea, no vomiting and no diarrhea/loose stools Genitourinary: no dysuria and no flank pain Integumentary: no rash Neurologic: no problem reported Physical Exam Constitutional: not in distress Eyes: PERRL, conjunctivae normal, anicteric sclerae ENMT: external ear and nose normal, oropharynx normal Neck: trachea midline, no thyromegaly Respiratory: normal respiratory effort, lungs clear to auscultation Cardiovascular: RRR, no murmur, no edema Gastrointestinal (Abdomen): normal bowel sounds, soft, nontender, no hepatosplenomegaly Skin: no rashes, warm and dry Neurologic: Speech / Cognition: normal speech and normal cognition Results & Data Vital Signs (Past 12 Hours) Vital Signs Temp Pulse Pulse Resp BP Pulse Ox O2 Del Method 12/16/23 08:11 64 18 95 Room Air 12/16/23 07:45 36.3 C L 57 L 20 123/73 96 Room Air 12/16/23 02:58 36.4 C L 92 H 18 154/82 H 97 Room Air 12/16/23 00:00 61 12/15/23 23:04 36.5 C 62 18 138/68 90 Room Air Laboratory Results Laboratory Results - last 24 hr 12/16/23 06:31 Sodium 142 Potassium 3.6 Chloride 107 Carbon Dioxide 27 Anion Gap 8 BUN 42 H Creatinine 2.83 H Est Cr Clr Drug Dosing 15.2 Est GFR ( Amer) 18.7 Est GFR (Non-Af Amer) 16.1 BUN/Creatinine Ratio 14.8 Glucose 95 Calcium 10.4 H Diagnostic Findings 12/15/23 CXR - no CHF or infiltrate PG Care Time/CCT Total # of Minutes Spent Total Time Spent with Patient: Total time spent is greater than 50% in coordination of care (as documented) at patient's floor/unit and/or counseling patient: Coding Level of Care Code 87484 SUB INP/OBS CARE 350MIN Diagnoses JAVI (acute kidney injury) N17.9 Norovirus A08.11 Cystitis N30.90
--- NOTE | 2023-12-16 12:04 | Neurology Consultation ---
Date of Consultation December 16, 2023 Assessment & Plan (1) Chronic headache: Plan 73 y/o female that was admitted on 11/30 after being found found down at home. She had suspected syncopal event and presented with encephalopathy. She was found to have hypoxic respiratory failure secondary to ILD/COPD exacerbation secondary to HCAP/Coronavirus OC43 as well as norovirus gastroenteritis and traumatic rhabomyolsis. She has also been treated for JAVI on CKD and hypotension/suspected orthostasis. Neurology has been consulted for headache. Suspect chronic TTH with MOH. As she is now tolerating the lamictal well, reasonable to consider increasing lamictal to 25 mg qam and 50 mg qhs as pre viously planned by outpatient neurologist and continuing to attempt acetaminophen taper. Alternatively, a trial of gabapentin could be considered. 1. MRV 2. Consider increasing lamictal to 25 mg qam and 50 mg qhs 3. ESR/CRP 4. Outpatient neurology follow-up 5. Outpatient sleep medicine follow-up. Telehealth Consultation Telehealth Information Telehealth Information: I performed this visit using a real-time telehealth connection between my location and the patients location ([facility]). After connecting through interactive tele-video, patient was identified by name and date of and/or wristband check.Patient (or authorized healthcare agency sales representative) was informed that this was a telemedicine visit and it was being conducted confidentially over secure lines. My office door was closed and no one else was present in the room with me.Patient (or authorized healthcare agency sales representative) provided consent to proceed with the visit, expressed an understanding of privacy and security of the telemedicine visit, and gave permission to have a hospital agency sales representative in the room in order to assist with the visit and to conduct portions of the visit, as needed. I informed the patient (or authorized healthcare agency sales representative) that I reviewed their record and presented the opportunity for them to ask any questions regarding the visit today. The patient agreed to participate. History of Present Illness Reason for Consultation: persistent severe headache Requesting Physician: Pastor Smith MD Attending Physician: Souleymane Rodarte MD History of Present Illness 73 y/o female that was admitted on 11/30 after being found found down at home. S he had suspected syncopal event and presented with encephalopathy. She was found to have hypoxic respiratory failure secondary to ILD/COPD exacerbation secondary to HCAP/Coronavirus OC43 and traumatic rhabomyolsis. She has also been treated for JAVI on CKD, hypotension/suspected orthostasis, and norovirus gastroeneteritis. Neurology has been consulted for evaluation of headache. She has followed with neurology outpatient for headache and in October 2023, medication overuse headaches were suspected , she had been recommended to increase lamotrigine to 25 mg qam and 50 mg qhs, initiate magnesium, and begin tapering use of acetaminophen. During a recent admission following this, she was seen for headache and she endorsed a perisitent headache over the last 6-8 weeks, where she had previously only gotten headaches every three to for months. Her prior chronic headaches were described at that time as dull frontal headaches, not associated with photophobia, phobophobia, or nausea. Her more rec ent headache had been described as pressure like and holocephalic with no associated nausea, photophobia, phonophobia, or alleviating/aggravating factors. At that time, she indicated that she had stopped taking lamictal at that time because it made her shake. A short course of dexamethasone was given and low dose topirimate was started, and after a few days, headache reportedly improved and pt was discharged home. She did have a MRI brain during that admission which did not show any enhancing lesions or acute intracranial findings. On today, she states that she is unsure how long she continued topirimate but believes she did restart lamictal after her last discharge. She has been placed on lamictal 25 mg bid during this admission. Additionally, cymbalta 30 mg was initiated on 12/03. She believes that she has now tolerate lamictal okay without any side effects. She states that she continues to have daily headaches. She has been taking tylenol daily for headache when at home and taking percocet occasionally. She continues to describe a pressure like holocephalic headache that is not associated with phonophobia, photophobia, or nausea. She has still not been able to identify any alleviating or aggravating factors. She denies any change in headache with position. She does sometimes have pain. She denies any associated lacrimation, conjunctival injection, rhinorrhea, or eyelid drooping. If she does not take acetaminophen, her headache will last for several hours. She has a prior diagnosis of complex sleep apnea but she has not been able to tolerate BiPAP. She states that before her headaches she had four teeth removed, and after the extraction, she had some mouth pain and this also around the time that she started to have more frequent headaches. She was taking tylenol for pain at that time and estimates that she had began taking tylenol two to three times per day at that time. Allergies Allergy/AdvReac Type Severity Reaction Status Date / Time bethanechol Allergy Intermediate RASH, Verified 11/29/23 20:43 "FEELS FUNNY" Cephalosporins Allergy Intermediate RASH, Verified 11/29/23 20:43 DIARRHEA levofloxacin Allergy Intermediate RASH,TURNED Verified 11/29/23 20:43 RED Sulfa (Sulfonamide Allergy Intermediate Generalized Verified 11/29/23 20:43 Antibiotics) Rash ertapenem Allergy Mild RASH Verified 11/29/23 20:43 atropine Allergy Unknown ON [facility] MED Verified 11/29/23 20:43 LIST clindamycin Allergy Unknown Unknown Verified 11/29/23 20:43 dipyridamole Allergy Unknown PERSANTINE--ON Verified 11/29/23 20:43 [facility]G MED LIST droperidol Allergy Unknown Unknown Verified 11/29/23 20:43 meperidine [From Demerol] Allergy Unknown ? ALLERGY Verified 11/29/23 20:43 ON [facility] MED LIST promethazine Allergy Unknown UNKNOWN Verified 11/29/23 20:43 tobramycin Allergy Unknown UNKNOWN Verified 11/29/23 20:43 aspirin AdvReac Severe BLEEDING Verified 11/29/23 20:43 doxycycline AdvReac Severe severe Verified 11/29/23 20:43 Diarrhea, nausea metolazone AdvReac Severe ELECTROLYTE Verified 11/29/23 20:43 ISSUES--HYPOKALEMIA bupropion AdvReac Intermediate NERVOUS Verified 11/29/23 20:43 REACTION cephalexin AdvReac Intermediate GI SYMPTOMS Verified 11/29/23 20:43 morphine AdvReac Intermediate NERVOUS Verified 11/29/23 20:43 REACTION TO IT nitrofurantoin AdvReac Intermediate Vomiting Verified 11/29/23 20:43 [From Macrobid] prochlorperazine AdvReac Intermediate NERVOUS Verified 11/29/23 20:43 REACTION tedizolid AdvReac Intermediate GI SYMPTOMS Verified 11/29/23 20:43 venlafaxine [From Effexor] AdvReac Intermediate NERVOUS Verified 11/29/23 20:43 REACTION lamotrigine AdvReac Unknown tremors Verified 11/29/23 20:43 Home Medications Medication Instructions Recorded Confirmed Type colesevelam 625 mg tablet (WelChol) 625 mg PO TID 06/17/18 11/29/23 History montelukast 10 mg tablet 10 mg PO HS 06/17/18 11/29/23 History (Singulair) ipratropium 0.5 mg-albuterol 3 mg 3 ml inhalation Q4H PRN Shortness 05/05/19 11/29/23 History (2.5 mg base)/3 mL nebulization Of Breath Or Wheezing soln kupxyy-hkeymylk-urrcrtg 4 cap PO TID 05/05/19 11/29/23 History 24,000-76,000-120,000 unit capsule,delayed rel (Creon) omeprazole magnesium 20 mg 20 mg PO BID 05/17/19 11/29/23 History tablet,delayed release (Prilosec OTC) metolazone 2.5 mg tablet 2.5 mg PO WK 11/15/22 11/29/23 History oxycodone-acetaminophen 5 mg-325 1 tab PO Q6H PRN Pain 11/15/22 11/29/23 History mg tablet (Percocet) ropinirole 0.5 mg tablet 0.5 mg PO HS 11/15/22 11/29/23 History valacyclovir 500 mg tablet 500 mg PO QAM 11/15/22 11/29/23 History calcitriol 0.5 mcg capsule 0.5 mcg PO BID #60 caps 12/21/22 11/29/23 Rx albuterol sulfate 90 mcg/actuation 2 inh inhalation Q6H PRN Shortness 02/03/23 11/29/23 Rx breath activated powder inhaler Of Breath Or Wheezing #1 ea levothyroxine 88 mcg tablet 88 mcg PO QAM #30 tabs 05/21/23 11/29/23 Rx cyanocobalamin (vitamin B-12) 1,000 mcg PO DAILY 05/24/23 11/29/23 History 1,000 mcg tablet (Vitamin B-12) nitroglycerin 0.4 mg sublingual 0.4 mg sublingual DIRECTED PRN 05/24/23 11/29/23 History tablet (Nitrostat) Chest Pain cetirizine 10 mg tablet 10 mg PO DAILY PRN Allergy Symptoms 05/29/23 11/29/23 History torsemide 20 mg tablet 20 mg PO BID 06/24/23 11/29/23 History calcium carbonate 600 mg calcium 1,200 mg PO TID 07/22/23 11/29/23 History (1,500 mg) tablet (Calcium) denosumab 60 mg/mL subcutaneous 60 mg subcut Q180D #1 mL 07/22/23 11/29/23 Rx syringe (Prolia) fluticasone furoate 200 1 inh inhalation QAM 10/30/23 11/29/23 History mcg-vilanterol 25 mcg/dose inhalation powder (Breo Ellipta) joqsyjkgwjch-vtjuxvwb-shsvdk tablet 1 tab PO DAILY 10/30/23 11/29/23 History rosuvastatin 10 mg tablet 10 mg PO QAM 10/30/23 11/29/23 History diphenhydramine-zinc acetate 2 1 applic EXT QID PRN itching #30 11/04/23 11/29/23 Rx %-0.1 % topical cream (Anti-Itch grams (diphenhydramine) with Zinc) potassium chloride 20 mEq 20 meq PO TID #90 tabs 11/04/23 11/29/23 Rx tablet,extended release(part/cryst) topiramate 25 mg tablet 25 mg PO HS #54 tabs 11/04/23 11/29/23 Rx vibegron 75 mg tablet (Gemtesa) 75 mg PO QAM 11/06/23 11/29/23 History pregabalin 100 mg capsule 100 mg PO TID 30 days #90 caps 11/09/23 11/29/23 Rx lamotrigine 25 mg tablet See Rx Instructions .Route .COMPLEX 11/29/23 11/29/23 History potassium citrate 15 mEq (1,620 15 meq PO BID 11/29/23 11/29/23 History mg) tablet,extended release Patient History Medical History Difficulty swallowing "trouble swallowing pills" Poor historian Neuropathy Recurrent major depression in remission History of DVT (deep vein thrombosis) remote hx, unknown etiology, Pacemaker Medtronic, implanted 12/2022 (bradycardia) > pt does not know when last checked Right rotator cuff tear Bronchiectasis pt unaware ILD (interstitial lung disease) Osteoporosis Nocturnal hypoxemia Osteoarthritis of left knee Kidney stones LARRY treated with BiPAP Junctional bradycardia Hypothyroidism Secondary hyperparathyroidism Pulmonary hypertension mild per 07/[address] report Atherosclerosis of both lower extremities Chronic kidney disease stage 3b GERD without esophagitis COPD (chronic obstructive pulmonary disease) "Well controlled" History of anemia Lumbar transverse process fracture Pt reports lower back detioriating - can't lie flat/sleep on a chair Pulmonary nodule seen on imaging study Reactive hypoglycemia Vitamin D deficiency Wrist injury Scar tissue surrounding remote wrist ORIF several years ago resulting in intermittent inflammation per pt Bilateral nephrolithiasis H/O concussion Remote hx "a long time ago" Incisional hernia Abdominal (from multiple surgeries/feeding tube) Obesity Sepsis 05/2020 @ [facility], urosepsis 2/2 obstructing renal stone, S/P cysto/stent and ESWL Chronic urinary tract infection recent hospitalization for this at [facility] DC'ed 11/05/23 > pt reports she is still very fatigued Sleep apnea complex sleep apnea, BIPAP (non-compliant) Hyperlipidemia per records Chronic venous insufficiency Chronic sinusitis Pancreatic insufficiency chronic pancreatitis MRSA (methicillin resistant staph aureus) culture positive Hx (Left wrist) Had 3 nasal swab and all negative (through [facility] per pt) Port-A-Cath in place right side due to poor vascular access Urinary leakage PUD (peptic ulcer disease) Had feeding tube for 28 years (has been removed for 11 years) Depression Asthma Peripheral neuropathy Lumbar stenosis Chronic diastolic (congestive) heart failure Follows with [facility] cardiology Short bowel syndrome PVC (premature ventricular contraction) Pernicious anemia (08/08/13) Surgical History History of esophageal dilatation History of cystoscopy multiple H/O shoulder surgery RT arthroscopy 05/28/2021: LMA#4 atraumatic x 1 + PNB. Anesthesia postop progress note: "Pt denies SOB at this time. Block is functioning well. Vital signs stable and appropriate. Oxygenating well considering block placement and her comorbidities. Plan to discharge home with IS." S/P right rotator cuff repair S/P ureteral stent placement Status post laser lithotripsy of ureteral calculus History of prior ablation treatment Right LE in January 2020 and left LE 04/18/20 History of partial gastrectomy History of sinus surgery History of tonsillectomy and adenoidectomy History of total abdominal hysterectomy and bilateral salpingo-oophorectomy History of cholecystectomy History of appendectomy History of open reduction and internal fixation (ORIF) procedure left wrist + manipulation (01/2018) and I&D (10/2019) History of joint replacement Rt thumb History of knee replacement procedure of right knee History of esophagogastroduodenoscopy (EGD) History of colonoscopy History of gastrointestinal surgery multiple History of cardiac cath 08/2019 ([facility])- essentially normal coronary arteries angiographically, no stents Family History Mother Family history of diabetes mellitus Sister Family history of diabetes mellitus Family history of breast cancer Father Esophageal cancer Other Family history non-contributory No family history of adverse response to anesthesia Social History Smoking Status: Never smoker Second Hand Exposure: No; Do You Dip or Chew Tobacco: No; Hx Alcohol Use: Yes Alcohol type: beer Hx Substance Use: No Preferred Language: Indian Communication Ability: Effective Visual Impairment: No Limitations Assembly Person Required: No Beliefs That Will Affect Care: None marital status: Single Current Living Situation: Personal Care Facility Current Living Situation Comment: apartment at [facility] in [place]/ had aid How many Children do You have: 0 Feels Safe at Home: Yes Assistive Devices: Walker Review of Systems Negative except as listed in HPI Physical Exam AAO X 3 No aphasia or dysarthria VFF grossly intact EOMI, no nystagmus Facial sensations intact No facial asymmetry Tongue protrudes midline Motor: Moves all four extremities antigravity, no drift. Sensation: Intact to light touch throughout Cerebellar: FTN intact Results & Data Vital Signs (Past 12 Hours) Vital Signs Temp Pulse Pulse Resp BP BP Pulse Ox 12/16/23 11:08 36.4 C L 67 18 117/67 97 12/16/23 09:24 67 109/67 12/16/23 08:11 64 18 95 12/16/23 08:00 57 L 12/16/23 07:45 36.3 C L 57 L 20 123/73 96 12/16/23 02:58 36.4 C L 92 H 18 154/82 H 97 O2 Del Method 12/16/23 11:08 Room Air 12/16/23 09:24 12/16/23 08:11 Room Air 12/16/23 08:00 12/16/23 07:45 Room Air 12/16/23 02:58 Room Air Laboratory Results Na 142, Potassium 3.6, Chloride 107. Carbon Dioxide 27, BUN 42, Creatinine 2.83, Glucose [address] Head 11/29: No evidence of acute intracranial pathology. CT Chest: Consolidations in bilateral lung bases along the bronchovascular pathways most concerning for an infectious etiology. CT abdomen/pelvis: 1. Diffuse coarse interstitial changes noted at the lung bases, new from the previous examination. New cylindrical bronchiectasis involving the inferior right middle lobe. Findings are greater than expected for subsegmental atelectasis which raises the concern for subtle interstitial infection. 2. Stable postsurgical changes consistent with distal gastrectomy. No evidence for bowel obstruction. Evaluation the bowel mucosa is limited without contrast; however, no obvious asymmetry noted. Several of the small bowel loops remain immediately deep to the skin surface in the region of the patulous defect involving the ventral abdominal wall. No pneumatosis or pneumoperitoneum.
--- NOTE | 2023-12-16 14:12 | Hospitalist Progress Note ---
Date of Service December 16, 2023 Assessment & Plan (1) Encephalopathy: Plan: Ms Braswell is a 73 year old woman with medical history significant for chronic diastolic heart failure (EF 55 to 60%, TTE 2022), sinus node dysfunction sp PPM, asthma/COPD/ILD, LARRY, pulmonary hypertension, CKDIII (baseline creatinine 1.3), history of gastric bypass, hyperparathyroidism as per records, hypothyroidism, ankylosing spondylitis as per records, chronic anemia (baseline hemoglobin of 11), recurrent UTIs (ESBL E. coli infection), urolithiasis, history pancreatic insufficiency/malabsorption, mood/anxiety disorder, chronic pain/neuropathy who is admitted for evaluation of encephalopathy. Patient was found down on 11/29 and brought to ED. Notable issue with 1 week of diarrhea preceding admission. Patient's encephalopathy appears resolved. Episode of tremulousness and anxiety in the evening which have resolved as well. Patient with MRSA nare + and staph in sputum, as well as developing opacities on imaging. Continuing with [facility]. ID consulted-treated with vancomycin. Acute hypoxic respiratory failure, resolved Pneumonia, staph COPD/ILD exacerbation secondary to HCAP/coronavirus OC43 Recurrent UTI (H/O ESBL) --CT head:No evidence of acute intracranial pathology. --CT chest:Consolidations in bilateral lung bases along the bronchovascular pathways most concerning for an infectious etiology. -- BioFire positive for coronavirus OC43 --Normal ammonia --Elevated procalcitonin -- Blood culture negative to date Urine culture NGTD -MRSA +, sputum + staph -Infectious disease consult given MRSA nares + and staph/MRSA in sputum -Vancomycin in interim, follow up with ID consult -Completed 5 days IV vancomycin Completed prednisone, EOT 12/04 Continue Nebs prn Continue home inhalers Patient is currently on room air. JAVI on CKD III potentially secondary to episode of hypotension, vancomycin Creatinine up trended to 3.1 mg/dl. Improved with IV hydration to 2.8 Nephrology on board; recommended to encourage oral hydration. Strict input and output monitoring Persistent headache Reports generalized headache associated with nasal symptoms-chronic Possible chronic sinusitis Flonase twice daily Neurology consulted; appreciate recommendation #Hypotension #Recurrent falls likely secondary to orthostasis BP relatively low monitor on tele Started on midodrine, new hold parameters (SBP >130) Started at 10 mg 3 times daily; weaning off to 2.5 mg 3 times a day Continue to monitor; hold off if SBP is greater than 110 mmHg. #Acute metabolic encephalopathy *resolved Multifactorial: Multifocal pneumonia, possible aspiration,UTI, Rhabdo Multiple viral infections on going, rhabdo CT with consolidations noted, improving with IVF and IV abx stable at this time #Acute Diarrhea 2/2 Norovirus gastroenteritis *improved #Malnutrition Secondary to norovirus infection Stool negative for C. difficile GI consult--continue conservative, viral enteritis maybe post enteritis IBS -OP follow up Continued home pancreatic enzymes #Hypocalcemia #Chronic nephrolithiasis #Secondary hyperparathyroidism -Continue home potassium citrate -on Continue home calcitrol and ca supplementation Stopping calcium supplement and holding off on home calcitriol given elevated level of calcium #Traumatic rhabdomyolysis *resolved #Mechanical fall CK [id number] #sinus node dysfunction sp PPM #Chronic diastolic heart failure h/o Pulmonary hypertension Monitor volume status diuretics on hold: metolazone 2.5mg weekly, torsemide 20mg BID #LARRY Noncompliant with BiPAP Other chronic conditions: H/O gastric bypass Hypothyroidism--continue levothyroxine Possible functional disability given recurrent admissions/compliance issues DVT Px: Heparin SQ Code Status Full code Disposition pending Will need to transition to [facility] facility Time spent evaluating patient, direct bedside care, chart review, placing orders, interpretation of diagnostic studies, discussion with consultants, patient, and family members, as well as other required patient management activities is 50 minutes Please note the above document was generated using voice recognition software. It may contain grammatical, syntax or spelling errors. Any formal questions or concerns about the content, text or information contained within the body of this dictation should be directly addressed to the provider for clarification Admission and Anticipated Discharge Date Admission Date: November 30, 2023 Subjective Patient seen and examined at bedside. She is sitting up on the chair; she is comfortable. She reports headache. No other complaints. Review of Systems Review of Systems: All systems reviewed & are unremarkable except as noted in Subjective Physical Exam Physical Exam: General- oriented x 3, not in distress, speaks in sentences with no effort or accessory muscle use Eyes- anicteric Neck- no JVD Lungs-bilateral clear breath sound Heart- normal rate, regular rhythm; no murmurs Abdomen- normal bowel sounds, nondistended, soft, nontender Extremities- no pretibial edema, no calf tenderness Neuro- alert, oriented x 3; no gross focal neurologic deficits Skin- warm & dry Results & Data Results & Data Vital Signs (Past 12 Hours) Vital Signs Temp Pulse Pulse Resp BP BP Pulse Ox 12/16/23 11:08 36.4 C L 67 18 117/67 97 12/16/23 09:24 67 109/67 12/16/23 08:11 64 18 95 12/16/23 08:00 57 L 12/16/23 07:45 36.3 C L 57 L 20 123/73 96 12/16/23 02:58 36.4 C L 92 H 18 154/82 H 97 O2 Del Method 12/16/23 11:08 Room Air 12/16/23 09:24 12/16/23 08:11 Room Air 12/16/23 08:00 12/16/23 07:45 Room Air 12/16/23 02:58 Room Air
[2023-12-17 07:28] LABS: BUN Creatinine Ratio 14.9 (10-20); Calcium 9.7 mg/dl (8.6-10.3); Est GFR (African American) 19.8 ml/min; Est GFR (Non-African American) 17.1 ml/min; Potassium 3.7 mmol/L (3.5-5.1)
[2023-12-17] MEDS: valACYclovir HCL 500 MG TABLET PO SCH (08:17)
--- NOTE | 2023-12-17 09:11 | Nephrology Progress Note ---
Date of Service December 17, 2023 Assessment & Plan (1) JAVI (acute kidney injury): Plan: * Clinical presentation suggestive of hemodynamically mediated ATN * Nonoliguric. Urine volume 1651 cc yesterday * Patient remains clinically volume contracted. Cr improved to 2.69 (Baseline 0.7). Electrolyte balance remain acceptable. Encouraged 1-2 L free water intake daily * 12/15/23 CXR - no CHF or infiltrate * Monitor PRP, UO * Recommend tapering Midodrine to off keeping SBP > 100 mm Hg (2) Chronic kidney disease with symptom management only, stage 2 (mild): Plan: * Baseline Cr 0.7 w/ EGFR 78 cc/min * Atrophic, nonfunctional R kidney (6.3 cm on 12/08/23 renal US) (3) Coronavirus infection: Plan: * Positive for Coronavirus OC43 at time of admission (11/29/23). Suffered syncopal event complicated by low grade rhabdomyolysis (4) Norovirus: Plan: * N/V, diarrhea resolved (5) Cystitis: Plan: * 12/08/23 urine cx w/ ESBL E. Coli and Pseudomonas * 12/11/23 ID consultation recommends Meropenem only if febrile Admission and Anticipated Discharge Date Admission Date: November 30, 2023 Subjective Ms. Braswell was evaluated in her hospital room this morning. She was sitting up in a chair and denied fever, flank pain or dysuria. She reports improved strength and hopes to transfer to [facility] following hospitalization Review of Systems Constitutional: no fever Eyes: no problem reported Ear, Nose, Mouth, Throat: no problem reported Respiratory: no cough and no dyspnea Cardiovascular: no chest pain Gastrointestinal: no abdominal pain, no nausea, no vomiting and no diarrhea/loose stools Genitourinary: no dysuria and no flank pain Integumentary: no rash Neurologic: no problem reported Physical Exam Constitutional: not in distress Eyes: PERRL, conjunctivae normal, anicteric sclerae ENMT: external ear and nose normal, oropharynx normal Neck: trachea midline, no thyromegaly Respiratory: normal respiratory effort, lungs clear to auscultation Cardiovascular: RRR, no murmur, no edema Gastrointestinal (Abdomen): normal bowel sounds, soft, nontender, no hepatosplenomegaly Skin: no rashes, warm and dry Neurologic: Speech / Cognition: normal speech and normal cognition Results & Data Vital Signs (Past 12 Hours) Vital Signs Temp Pulse Pulse Resp BP Pulse Ox O2 Del Method 12/17/23 07:40 59 L 12/17/23 03:07 36.7 C 57 L 20 130/74 94 Room Air 12/17/23 00:00 66 12/16/23 23:10 36.4 C L 59 L 20 148/70 H 92 Room Air Laboratory Results Laboratory Results - last 24 hr 12/17/23 06:44 Sodium 142 Potassium 3.7 Chloride 108 H Carbon Dioxide 27 Anion Gap 7 BUN 40 H Creatinine 2.69 H Est Cr Clr Drug Dosing 16.0 Est GFR ( Amer) 19.8 Est GFR (Non-Af Amer) 17.1 BUN/Creatinine Ratio 14.9 Glucose 95 Calcium 9.7 PG Care Time/CCT Total # of Minutes Spent Total Time Spent with Patient: Total time spent is greater than 50% in coordination of care (as documented) at patient's floor/unit and/or counseling patient: Coding Level of Care Code 01760 SUB INP/OBS CARE 3/50MIN Diagnoses JAVI (acute kidney injury) N17.9 Chronic kidney disease with symptom management only, stage 2 (mild) N18.2 Coronavirus infection B34.2 Norovirus A08.11 Cystitis N30.90
--- NOTE | 2023-12-17 13:28 | Hospitalist Progress Note ---
Date of Service December 17, 2023 Assessment & Plan (1) Encephalopathy: Plan: Ms Braswell is a 73 year old woman with medical history significant for chronic diastolic heart failure (EF 55 to 60%, TTE 2022), sinus node dysfunction sp PPM, asthma/COPD/ILD, LARRY, pulmonary hypertension, CKDIII (baseline creatinine 1.3), history of gastric bypass, hyperparathyroidism as per records, hypothyroidism, ankylosing spondylitis as per records, chronic anemia (baseline hemoglobin of 11), recurrent UTIs (ESBL E. coli infection), urolithiasis, history pancreatic insufficiency/malabsorption, mood/anxiety disorder, chronic pain/neuropathy who is admitted for evaluation of encephalopathy. Patient was found down on 11/29 and brought to ED. Notable issue with 1 week of diarrhea preceding admission. Patient's encephalopathy appears resolved. Episode of tremulousness and anxiety in the evening which have resolved as well. Patient with MRSA nare + and staph in sputum, as well as developing opacities on imaging. Continuing with Vanc. ID consulted-treated with vancomycin. Acute hypoxic respiratory failure, resolved Pneumonia, staph COPD/ILD exacerbation secondary to HCAP/coronavirus OC43 Recurrent UTI (H/O ESBL) --CT head:No evidence of acute intracranial pathology. --CT chest:Consolidations in bilateral lung bases along the bronchovascular pathways most concerning for an infectious etiology. -- BioFire positive for coronavirus OC43 --Normal ammonia --Elevated procalcitonin -- Blood culture negative to date Urine culture NGTD -MRSA +, sputum + staph -Infectious disease consult given MRSA nares + and staph/MRSA in sputum -Vancomycin in interim, follow up with ID consult -Completed 5 days IV vancomycin Completed prednisone, EOT 12/04 Continue Nebs prn Continue home inhalers Patient is currently on room air. JAVI on CKD III potentially secondary to episode of hypotension, vancomycin Creatinine up trended to 3.1 mg/dl. Improved with IV hydration to 2.69 Nephrology on board; recommended to encourage oral hydration. Strict input and output monitoring Persistent headache Reports generalized headache associated with nasal symptoms-chronic Possible chronic sinusitis Flonase twice daily Neurology consulted; recommended to increase Lamictal 25 mg and 50mg at night, MRV and ESR/CRP. #Hypotension #Recurrent falls likely secondary to orthostasis BP relatively low monitor on tele Started on midodrine, new hold parameters (SBP >130) Started at 10 mg 3 times daily; stopped midodrine. Continue to monitor #Acute metabolic encephalopathy *resolved Multifactorial: Multifocal pneumonia, possible aspiration,UTI, Rhabdo Multiple viral infections on going, rhabdo CT with consolidations noted, improving with IVF and IV abx stable at this time #Acute Diarrhea 2/2 Norovirus gastroenteritis *improved #Malnutrition Secondary to norovirus infection Stool negative for C. difficile GI consult--continue conservative, viral enteritis maybe post enteritis IBS -OP follow up Continued home pancreatic enzymes #Hypocalcemia #Chronic nephrolithiasis #Secondary hyperparathyroidism -Continue home potassium citrate -on Continue home calcitrol and ca supplementation Stopping calcium supplement and holding off on home calcitriol given elevated level of calcium #Traumatic rhabdomyolysis *resolved #Mechanical fall CK [id number] #sinus node dysfunction sp PPM #Chronic diastolic heart failure h/o Pulmonary hypertension Monitor volume status diuretics on hold: metolazone 2.5mg weekly, torsemide 20mg BID #LARRY Noncompliant with BiPAP Other chronic conditions: H/O gastric bypass Hypothyroidism--continue levothyroxine Possible functional disability given recurrent admissions/compliance issues DVT Px: Heparin SQ Code Status Full code Disposition pending Will need to transition [facility] facility Time spent evaluating patient, direct bedside care, chart review, placing order s, interpretation of diagnostic studies, discussion with consultants, patient, and family members, as well as other required patient management activities is 50 minutes Please note the above document was generated using voice recognition software. It may contain grammatical, syntax or spelling errors. Any formal questions or concerns about the content, text or information contained within the body of this dictation should be directly addressed to the provider for clarification Admission and Anticipated Discharge Date Admission Date: November 30, 2023 Subjective Patient seen and examined at bedside. Comfortable; not in distress. Denies fever, chills, chest pain, shortness of breath, abdominal pain or urinary symptoms. No significant overnight events Review of Systems Review of Systems: All systems reviewed & are unremarkable except as noted in Subjective Physical Exam Physical Exam: General- oriented x 3, not in distress, speaks in sentences with no effort or accessory muscle use Eyes- anicteric Neck- no JVD Lungs-bilateral clear breath sound Heart- normal rate, regular rhythm; no murmurs Abdomen- normal bowel sounds, nondistended, soft, nontender Extremities- no pretibial edema, no calf tenderness Neuro- alert, oriented x 3; no gross focal neurologic deficits Skin- warm & dry Results & Data Results & Data Vital Signs (Past 12 Hours) Vital Signs Temp Pulse Pulse Resp BP BP Pulse Ox 12/17/23 11:52 12/17/23 11:24 36.3 C L 57 L 17 105/66 94 12/17/23 07:40 59 L 12/17/23 07:00 36.5 C 74 16 113/75 95 12/17/23 03:07 36.7 C 57 L 20 130/74 94 O2 Del Method 12/17/23 11:52 Room Air 12/17/23 11:24 Room Air 12/17/23 07:40 12/17/23 07:00 Room Air 12/17/23 03:07 Room Air
--- NOTE | 2023-12-17 16:34 | Magnetic Resonance Report ---
MR venography head wo con HISTORY: 73 years-old Female severe headache chronic headache COMPARISON: 11/02/2023 TECHNIQUE: MR venogram was obtained with nipple reformats. FINDINGS: Cerebral venous sinuses appear unremarkable. No thrombus identified. IMPRESSION: Normal MRV. ACT 112: Negative or not required by law. The above report was generated using voice recognition software. It may contain grammatical, syntax o r spelling errors. Electronically signed by: Soham Kirby M.D. 12/17/2023 4:31 PM
[2023-12-17] MEDS: lamoTRIgine 25 MG TAB PO SCH (20:16)
[2023-12-18 07:22] LABS: BUN Creatinine Ratio 16.5 (10-20); C Reactive Protein 0.63 mg/dl (0-0.5); Calcium 9.3 mg/dl (8.6-10.3); Creatinine Clr Calc Pharmacy 17.6 ml/min; Est GFR (African American) 22.4 ml/min; Est GFR (Non-African American) 19.4 ml/min; Potassium 3.6 mmol/L (3.5-5.1)
--- NOTE | 2023-12-18 09:08 | Nephrology Progress Note ---
Date of Service December 18, 2023 Assessment & Plan (1) JAVI (acute kidney injury): Plan: * Clinical presentation suggestive of hemodynamically mediated ATN * Nonoliguric. Urine volume 1800 cc yesterday * Kidney function continues to improve with oral hydration. Cr improved to 2.43 this am (Baseline 0.7). * Electrolyte balance remain acceptable. Encouraged 1-2 L free water intake daily * 12/15/23 CXR - no CHF or infiltrate * Monitor PRP, UO * Midodrine has been stopped. BP remains acceptable (2) Chronic kidney disease with symptom management only, stage 2 (mild): Plan: * Baseline Cr 0.7 w/ EGFR 78 cc/min * Atrophic, nonfunctional R kidney (6.3 cm on 12/08/23 renal US) (3) Coronavirus infection: Plan: * Positive for Coronavirus OC43 at time of admission (11/29/23). Suffered syncopal event complicated by low grade rhabdomyolysis (4) Norovirus: Plan: * N/V, diarrhea resolved (5) Cystitis: Plan: * 12/08/23 urine cx w/ ESBL E. Coli and Pseudomonas * 12/11/23 ID consultation recommends Meropenem only if febrile Admission and Anticipated Discharge Date Admission Date: November 30, 2023 Subjective Ms. Braswell was evaluated in her hospital room this morning. She was sitting up in a chair and denied fever, flank pain or dysuria. Ms. Braswell reports that she will likely return home w/ private caregivers when discharged Review of Systems Constitutional: no fever Eyes: no problem reported Ear, Nose, Mouth, Throat: no problem reported Respiratory: no cough and no dyspnea Cardiovascular: no chest pain Gastrointestinal: no abdominal pain, no nausea, no vomiting and no diarrhea/loose stools Genitourinary: no dysuria and no flank pain Integumentary: no rash Neurologic: no problem reported Physical Exam Constitutional: not in distress Eyes: PERRL, conjunctivae normal, anicteric sclerae ENMT: external ear and nose normal, oropharynx normal Neck: trachea midline, no thyromegaly Respiratory: normal respiratory effort, lungs clear to auscultation Cardiovascular: RRR, no murmur, no edema Gastrointestinal (Abdomen): normal bowel sounds, soft, nontender, no hepatosplenomegaly Skin: no rashes, warm and dry Neurologic: Speech / Cognition: normal speech and normal cognition Results & Data Vital Signs (Past 12 Hours) Vital Signs Temp Pulse Resp BP BP Pulse Ox O2 Del Method 12/18/23 08:00 36.9 C 63 18 126/72 97 Room Air 12/18/23 03:21 36.7 C 61 20 149/80 H 91 Room Air 12/17/23 23:27 36.7 C 61 20 126/75 93 Room Air Laboratory Results Laboratory Results - last 24 hr 12/18/23 05:43 ESR 62 H Sodium 143 Potassium 3.6 Chloride 109 H Carbon Dioxide 26 Anion Gap 8 BUN 40 H Creatinine 2.43 H Est Cr Clr Drug Dosing 17.6 Est GFR ( Amer) 22.4 Est GFR (Non-Af Amer) 19.4 BUN/Creatinine Ratio 16.5 Glucose 92 Calcium 9.3 C-Reactive Protein 0.63 H PG Care Time/CCT Total # of Minutes Spent Total Time Spent with Patient: Total time spent is greater than 50% in coordination of care (as documented) at patient's floor/unit and/or counseling patient: Coding Level of Care Code 82150 SUB INP/OBS CARE 3/50MIN Diagnoses JAVI (acute kidney injury) N17.9 Chronic kidney disease with symptom management only, stage 2 (mild) N18.2 Coronavirus infection B34.2 Norovirus A08.11 Cystitis N30.90
[2023-12-18] MEDS: lamoTRIgine 25 MG TAB PO SCH (11:28)
--- NOTE | 2023-12-18 14:22 | Hospitalist Progress Note ---
Date of Service December 18, 2023 Assessment & Plan (1) Encephalopathy: Plan: Ms Braswell is a 73 year old woman with medical history significant for chronic diastolic heart failure (EF 55 to 60%, TTE 2022), sinus node dysfunction sp PPM, asthma/COPD/ILD, LARRY, pulmonary hypertension, CKDIII (baseline creatinine 1.3), history of gastric bypass, hyperparathyroidism as per records, hypothyroidism, ankylosing spondylitis as per records, chronic anemia (baseline hemoglobin of 11), recurrent UTIs (ESBL E. coli infection), urolithiasis, history pancreatic insufficiency/malabsorption, mood/anxiety disorder, chronic pain/neuropathy who is admitted for evaluation of encephalopathy. Patient was found down on 11/29 and brought to ED. Notable issue with 1 week of diarrhea preceding admission. Patient's encephalopathy appears resolved. Episode of tremulousness and anxiety in the evening which have resolved as well. Patient with MRSA nare + and staph in sputum, as well as developing opacities on imaging. Continuing with Vanc. ID consulted-treated with vancomycin. JAVI on CKD III potentially secondary to episode of hypotension, vancomycin Creatinine up trended to 3.1 mg/dl. Improved with IV hydration to 2.4 Nephrology on board; recommended to encourage oral hydration. Strict input and output monitoring Persistent headache Reports generalized headache associated with nasal symptoms-chronic Neurology consulted; recommended to increase Lamictal 25 mg and 50mg at night, MRV was done as per recommendation by neurologyno acute findings Discussed with Dr. Hogan on December 18, 2023; she will follow-up with the patient. Appreciate additional recommendation Acute hypoxic respiratory failure, resolved Pneumonia, staph COPD/ILD exacerbation secondary to HCAP/coronavirus OC43 Recurrent UTI (H/O ESBL) --CT head:No evidence of acute intracranial pathology. --CT chest:Consolidations in bilateral lung bases along the bronchovascular pathways most concerning for an infectious etiology. -- BioFire positive for coronavirus OC43 --Normal ammonia --Elevated procalcitonin -- Blood culture negative to date Urine culture NGTD -MRSA +, sputum + staph -Infectious disease consult given MRSA nares + and staph/MRSA in sputum -Vancomycin in interim, follow up with ID consult -Completed 5 days IV vancomycin Completed prednisone, EOT 12/04 Continue Nebs prn Continue home inhalers Patient is currently on room air. #Hypotension #Recurrent falls likely secondary to orthostasis BP relatively low monitor on tele Started on midodrine, initially. It is weaned off; and discontinued #Acute metabolic encephalopathy *resolved Multifactorial: Multifocal pneumonia, possible aspiration,UTI, Rhabdo Multiple viral infections on going, rhabdo Resolved #Acute Diarrhea 2/2 Norovirus gastroenteritis *resolved #Malnutrition Secondary to norovirus infection Stool negative for C. difficile GI consult--continue conservative, viral enteritis maybe post enteritis IBS -OP follow up Continued home pancreatic enzymes #Hypocalcemia #Chronic nephrolithiasis #Secondary hyperparathyroidism -Continue home potassium citrate -on Continue home calcitrol and ca supplementation Stopping calcium supplement and holding off on home calcitriol given elevated level of calcium #Traumatic rhabdomyolysis *resolved #Mechanical fall CK [id number] #sinus node dysfunction sp PPM #Chronic diastolic heart failure h/o Pulmonary hypertension Monitor volume status diuretics on hold: metolazone 2.5mg weekly, torsemide 20mg BID #LARRY Noncompliant with BiPAP Other chronic conditions: H/O gastric bypass Hypothyroidism--continue levothyroxine Possible functional disability given recurrent admissions/compliance issues DVT Px: Heparin SQ Code Status Full code Disposition Awaiting neurology's input regarding persistent headache. Possible discharge to SNF tomorrow depending on clinical improvement. Please note the above document was generated using voice recognition software. It may contain grammatical, syntax or spelling errors. Any formal questions or concerns about the content, text or information contained within the body of this dictation should be directly addressed to the provider for clarification Admission and Anticipated Discharge Date Admission Date: November 30, 2023 Subjective Patient seen and examined at bedside. She continues to report headache; no visual disturbances, weakness/numbness of any body part Afebrile and vital stable. Review of Systems Review of Systems: All systems reviewed & are unremarkable except as noted in Subjective Physical Exam Physical Exam: General- oriented x 3, not in distress, speaks in sentences with no effort or accessory muscle use Eyes- anicteric Neck- no JVD Lungs-bilateral clear breath sound Heart- normal rate, regular rhythm; no murmurs Abdomen- normal bowel sounds, nondistended, soft, nontender Extremities- no pretibial edema, no calf tenderness Neuro- alert, oriented x 3; no gross focal neurologic deficits Skin- warm & dry Results & Data Results & Data Vital Signs (Past 12 Hours) Vital Signs Temp Pulse Pulse Resp BP BP Pulse Ox 12/18/23 11:36 36.2 C L 56 L 18 122/74 94 12/18/23 10:38 12/18/23 08:00 36.9 C 63 18 126/72 97 12/18/23 07:00 59 L 12/18/23 03:21 36.7 C 61 20 149/80 H 91 O2 Del Method 12/18/23 11:36 Room Air 12/18/23 10:38 Room Air 12/18/23 08:00 Room Air 12/18/23 07:00 12/18/23 03:21 Room Air
--- NOTE | 2023-12-18 20:39 | Neurology Progress Note ---
Date of Service December 18, 2023 Assessment & Plan (1) Chronic headache: Plan 73 y/o female that was admitted on 11/30 after being found found down at home. She had suspected syncopal event and presented with encephalopathy. She was found to have hypoxic respiratory failure secondary to ILD/COPD exacerbation secondary to HCAP/Coronavirus OC43 as well as norovirus gastroenteritis and traumatic rhabdomyolsis. She has also been treated for JAVI on CKD and hypotension/suspected orthostasis. Neurology is following for headache. Unclear etiology of headache. However, overall, leading suspicion is for chronic TTH with MOH. Would continue increased dose of lamictal 25 mg qam and 50 mg qhs and continue to attempt acetaminophen taper. Additionally, could consider steroid course with prednisone 60 mg X 5 days or dexamethasone 4mg TID X 1 day, then 4mg bid X 1 day, and then 4 mg daily X 1 day. Alternatively, could consider Depakote 500 mg IV X 1 dose. Subjective Telehealth Information I performed this visit using a real-time telehealth connection between my location and the patients location ([facility]). After connecting through interactive tele-video, patient was identified by name and date of and/or wristband check.Patient (or authorized healthcare containers sales representative) was informed that this was a telemedicine visit and it was being conducted confidentially over secure lines. My office door was closed and no one else was present in the room with me.Patient (or authorized healthcare containers sales representative) provided consent to proceed with the visit, expressed an understanding of privacy and security of the telemedicine visit, and gave permission to have a hospital containers sales representative in the room in order to assist with the visit and to conduct portions of the visit, as needed. I informed the patient (or authorized healthcare containers sales representative) that I reviewed their record and presented the opportunity for them to ask any questions regarding the visit today. The patient agreed to participate. She states that her headache has not yet improved. She has difficulty sometimes with vision while reading at home but has not otherwise noticed any visual ch anges. She denies any jaw claudication. Physical Exam AAO X 3 No aphasia or dysarthria VFF grossly intact EOMI, no nystagmus Facial sensations intact No facial asymmetry Tongue protrudes midline Motor: Moves all four extremities antigravity, no drift. Sensation: Intact to light touch throughout Cerebellar: FTN intact Results & Data Vital Signs (Past 12 Hours) Vital Signs Temp Pulse Pulse Pulse Resp BP BP 12/18/23 20:26 36.5 C 65 18 124/74 12/18/23 19:56 12/18/23 15:32 36.4 C L 61 18 112/69 12/18/23 15:00 57 L 12/18/23 11:36 36.2 C L 56 L 18 122/74 12/18/23 10:38 Pulse Ox O2 Del Method 12/18/23 20:26 92 Room Air 12/18/23 19:56 Room Air 12/18/23 15:32 95 Room Air 12/18/23 15:00 12/18/23 11:36 94 Room Air 12/18/23 10:38 Room Air Laboratory Results ESR 62, NA 143, Potassium 3.6, Chloride 109, BUN 40, Creatinine 2.43, Glucose 92, CRP 0.63 Diagnostic Findings MRV:Normal MRV.
[2023-12-19 08:26] LABS: Basophils # (auto) 0.05 K/uL (0.00-0.20); Basophils % (auto) 0.9 %; Eosinophils % (auto) 1.9 %; Hematocrit (blood only) 33.6 % (37.0-47.0); Hemoglobin 10.5 g/dl (12.0-16.0); Immature Granulocytes # (auto) 0.03 K/uL (0.01-0.20); Immature Granulocytes % (auto) 0.6 %; Lymphocytes # (auto) 1.18 K/uL (1.20-3.40); Mean Corpuscular Hemoglobin 28.6 pg (25.0-34.0); Mean Corpuscular Hgb Conc 31.3 g/dL (32.0-36.0); Mean Corpuscular Volume 91.6 fL (80.0-100.0); Mean Platelet Volume 10.2 fL (9.4-12.4); Monocytes # (auto) 0.49 K/uL (0.11-0.59); Monocytes % (auto) 9.1 %; Neutrophils # (auto) 3.52 K/uL (1.40-6.50); Neutrophils % (auto) 65.5 %; Platelet Count 209 K/uL (130-400); RDW Coefficient of Variation 16.8 % (11.5-14.5); RDW Standard Deviation 56.7 fL (36.4-46.3); Red Blood Count 3.67 M/uL (4.20-5.40); White Blood Count 5.37 K/ul (4.8-10.8)
[2023-12-19] MEDS: predniSONE 20 MG TAB PO SCH (08:35)
[2023-12-19 08:39] LABS: BUN Creatinine Ratio 16.1 (10-20); Calcium 9.3 mg/dl (8.6-10.3); Creatinine Clr Calc Pharmacy 19.6 ml/min; Est GFR (African American) 24.8 ml/min; Est GFR (Non-African American) 21.4 ml/min; Potassium 4.1 mmol/L (3.5-5.1)
--- NOTE | 2023-12-19 11:25 | Nephrology Progress Note ---
Date of Service December 19, 2023 Assessment & Plan (1) JAVI (acute kidney injury): Plan: * Clinical presentation suggestive of hemodynamically mediated ATN * Nonoliguric * Volume status acceptable * Kidney function continues to improve with oral hydration. Cr improved to 2.24 this am (Baseline 0.7). * Electrolyte balance remain acceptable * Torsemide has been held * Potassium citrate held * No additional evaluation from a nephrology standpoint at this time * Please arrange follow up with Dr. Evans in the [facility] nephrology clinic within 2 weeks of discharge * Repeat metabolic profile early next week (2) Chronic kidney disease with symptom management only, stage 2 (mild): Plan: * Baseline Cr 0.7 w/ EGFR 78 cc/min * Atrophic, nonfunctional R kidney (6.3 cm on 12/08/23 renal US) (3) Coronavirus infection: Plan: * Positive for Coronavirus OC43 at time of admission (11/29/23). Suffered syncopal event complicated by low grade rhabdomyolysis (4) Norovirus: Plan: * N/V, diarrhea resolved (5) Cystitis: Plan: * 12/08/23 urine cx w/ ESBL E. Coli and Pseudomonas * 12/11/23 ID consultation recommends Meropenem only if febrile Admission and Anticipated Discharge Date Admission Date: November 30, 2023 Subjective No acute events overnight. No complaints this AM. Out of bed and walking in room. Liz told me that she is going to [facility] today. She feels good about discharge. Review of Systems Review of Systems: All systems reviewed & are unremarkable except as noted in HPI & below Physical Exam Constitutional: well developed; no acute distress Eyes: no scleral abnormality and no corneal abnormality ENMT: Mouth: no oral mucosal abnormality and oral mucous membranes not dry Neck: normal visual inspection and trachea midline Respiratory: normal respiratory effort Auscultation: lungs clear to auscultation bilaterally Cardiovascular: Rate/Rhythm: regular rate Heart Sounds: normal S1 and normal S2 Extremities: + edema Musculoskeletal: Extremities: no cyanosis and no clubbing Skin: normal turgor; no lesions Neurologic: Motor/Sensory: no tremor and no asterixis Psychiatric: Orientation: alert and oriented x 3 Results & Data Vital Signs (Past 12 Hours) Vital Signs Temp Pulse Pulse Resp BP Pulse Ox O2 Del Method 12/19/23 11:17 36.3 C L 67 18 134/82 97 Room Air 12/19/23 07:32 36.5 C 61 18 119/72 91 Room Air 12/19/23 07:00 60 12/19/23 03:51 36.6 C 72 20 110/63 93 Room Air 12/18/23 23:53 66 Laboratory Results Laboratory Results - last 24 hr 12/19/23 07:40 WBC 5.37 RBC 3.67 L Hgb 10.5 L Hct 33.6 L MCV 91.6 MCH 28.6 MCHC 31.3 L RDW Std Deviation 56.7 H RDW Coeff of David 16.8 H Plt Count 209 MPV 10.2 Immature Gran % (Auto) 0.6 Neut % (Auto) 65.5 Lymph % (Auto) 22.0 Kaufman % (Auto) 9.1 Eos % (Auto) 1.9 Baso % (Auto) 0.9 Neut # (Auto) 3.52 Lymph # (Auto) 1.18 L Kaufman # (Auto) 0.49 Eos # (Auto) 0.10 Baso # (Auto) 0.05 Immature Gran # (Auto) 0.03 Sodium 142 Potassium 4.1 Chloride 110 H Carbon Dioxide 25 Anion Gap 7 BUN 36 H Creatinine 2.24 H Est Cr Clr Drug Dosing 19.6 Est GFR ( Amer) 24.8 Est GFR (Non-Af Amer) 21.4 BUN/Creatinine Ratio 16.1 Glucose 98 Calcium 9.3 PG Care Time/CCT Total # of Minutes Spent Total Time Spent with Patient: Total time spent is greater than 50% in coordination of care (as documented) at patient's floor/unit and/or counseling patient: Coding Level of Care Code 18922 SUB INP/OBS CARE 3/50MIN Diagnoses JAVI (acute kidney injury) N17.9 Chronic kidney disease with symptom management only, stage 2 (mild) N18.2 Coronavirus infection B34.2 Norovirus A08.11 Cystitis N30.90
--- NOTE | 2023-12-19 12:40 | Communication Note ---
Date of Service: December 19, 2023 Neurology update: 73 y/o female that was admitted on 11/29 with hypoxic respiratory failure secondary to ILD/COPD exacerbation secondary to HCAP/Coronavirus OC43, norovirus gastroenteritis, traumatic rhabdomyolsis, and JAVI on CKD. Pt with history of chronic headaches and headaches have become daily over the last 3-4 months. 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 On prior admission in late October, MRI brain w/wo and MRA head were without acute findings. CTH on admission for this presentation with no acute intracranial findings and MRV during this admission with evidence of venous sinus thrombosis. Lamictal has been increased to 25 mg qam and 50 mg qhs, and the pt may benefit from further titration in future. NSAIDs have been avoided. Pt would likely also benefit from attempting to acetaminophen taper. Prednisone 60 mg X 6 days has been initiated per primary. No jaw claudication or vision abnormalities. Would recommend ensuring no temporal tenderness. If no improvement in headache, would consider LP.
--- NOTE | 2023-12-19 13:55 | Discharge Summary ---
Date of Service December 19, 2023 Admission HPI Per Admitting Provider History obtained from patient and records. Limited history from patient secondary to lethargic state. Medical history significant for chronic diastolic heart failure (EF 55 to 60%, TTE 2022), sinus node dysfunction sp PPM, asthma/COPD/ILD, LARRY, pulmonary hypertension, CRI (baseline creatinine 1.3), history of gastric bypass, hyperparathyroidism as per records, hypothyroidism, ankylosing spondylitis as per records, chronic anemia (baseline hemoglobin of 11), recurrent UTIs (ESBL E. coli infection), urolithiasis, history pancreatic insufficiency/malabsorption as per records, mood/anxiety disorder, chronic pain/neuropathy. Recent confinement last month for chronic headache. Patient with diarrhea symptoms last week as per records. Outpatient stool testing recommended by provider given antibiotic Rx following recent dental procedure. Few days history of cough symptoms productive of junky sputum as per patient. Admits to coughing with meals/water intake if not careful. Denies chest pain, admits to SOB. Patient found on the ground at apartment yesterday. Patient confused as per documentation. Patient thinks she may have passed out. Patient denies abdominal pain/flank pain. Noted to be hypoxemic, O2 sats 80s. Lowest SBP of 80s noted at the ER. 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 Admission Exam Per Admitting Provider GENERAL: Lethargic, obese, no respiratory distress SKIN: Normal color, warm HEENT: pink palpebral conjunctivae, no ptosis, dry buccal mucosa, nasal cannula in place NECK : Supple, short, no tenderness CHEST : Decreased breath sounds, occasional expiratory wheezes, no tenderness BACK : Mid back tenderness HEART :RRR, systolic murmur ABDOMEN: Some distention, no tenderness EXTREMITIES : Bilateral LE swelling, no LE tenderness NEUROLOGIC : Lethargic, no facial asymmetry, gait and stance not assessed Principal Diagnosis Encephalopathy Acute hypoxic respiratory failure Pneumonia JAVI on CKD Discharge Exam General- oriented x 3, not in distress, speaks in sentences with no effort or accessory muscle use Eyes- anicteric Neck- no JVD Lungs-bilateral clear breath sound Heart- normal rate, regular rhythm; no murmurs Abdomen- normal bowel sounds, nondistended, soft, nontender Extremities- no pretibial edema, no calf tenderness Neuro- alert, oriented x 3; no gross focal neurologic deficits Skin- warm & dry Discharge Data Allergies Allergy/AdvReac Type Severity Reaction Status Date / Time bethanechol Allergy Intermediate RASH, Verified 11/29/23 20:43 "FEELS FUNNY" Cephalosporins Allergy Intermediate RASH, Verified 11/29/23 20:43 DIARRHEA levofloxacin Allergy Intermediate RASH,TURNED Verified 11/29/23 20:43 RED Sulfa (Sulfonamide Allergy Intermediate Generalized Verified 11/29/23 20:43 Antibiotics) Rash ertapenem Allergy Mild RASH Verified 11/29/23 20:43 atropine Allergy Unknown ON [facility]G MED Verified 11/29/23 20:43 LIST clindamycin Allergy Unknown Unknown Verified 11/29/23 20:43 dipyridamole Allergy Unknown PERSANTINE--ON Verified 11/29/23 20:43 GMG MED LIST droperidol Allergy Unknown Unknown Verified 11/29/23 20:43 meperidine [From Demerol] Allergy Unknown ? ALLERGY Verified 11/29/23 20:43 ON [facility] MED LIST promethazine Allergy Unknown UNKNOWN Verified 11/29/23 20:43 tobramycin Allergy Unknown UNKNOWN Verified 11/29/23 20:43 aspirin AdvReac Severe BLEEDING Verified 11/29/23 20:43 doxycycline AdvReac Severe severe Verified 11/29/23 20:43 Diarrhea, nausea metolazone AdvReac Severe ELECTROLYTE Verified 11/29/23 20:43 ISSUES--HYPOKALEMIA bupropion AdvReac Intermediate NERVOUS Verified 11/29/23 20:43 REACTION cephalexin AdvReac Intermediate GI SYMPTOMS Verified 11/29/23 20:43 morphine AdvReac Intermediate NERVOUS Verified 11/29/23 20:43 REACTION TO IT nitrofurantoin AdvReac Intermediate Vomiting Verified 11/29/23 20:43 [From Macrobid] prochlorperazine AdvReac Intermediate NERVOUS Verified 11/29/23 20:43 REACTION tedizolid AdvReac Intermediate GI SYMPTOMS Verified 11/29/23 20:43 venlafaxine [From Effexor] AdvReac Intermediate NERVOUS Verified 11/29/23 20:43 REACTION lamotrigine AdvReac Unknown tremors Verified 11/29/23 20:43 Consultations 11/29/23 21:34 ED Decision to Admit Stat 12/03/23 11:43 Consult Infectious Diseases Routine 12/03/23 15:28 Consult Gastroenterology Routine 12/08/23 17:33 Consult Nephrology Routine 12/10/23 17:05 Consult Infectious Diseases Routine 12/15/23 14:13 Consult Neurology Routine Ordered Studies 11/29/23 20:26 CT head/brain wo con Stat 11/30/23 01:07 CT chest diagnostic wo con Stat 12/02/23 01:53 CT abd pelvis wo con Stat 12/08/23 17:33 US renal/blad retro comp Routine 12/17/23 09:33 MR venography head wo con Routine Hospital Course (1) Encephalopathy: Ms Braswell is a 73 year old woman with medical history significant for chronic diastolic heart failure (EF 55 to 60%, TTE 2022), sinus node dysfunction sp PPM, asthma/COPD/ILD, LARRY, pulmonary hypertension, CKDIII (baseline creatinine 1.3), history of gastric bypass, hyperparathyroidism as per records, hypothyroidism, ankylosing spondylitis as per records, chronic anemia (baseline hemoglobin of 11), recurrent UTIs (ESBL E. coli infection), urolithiasis, history pancreatic insufficiency/malabsorption, mood/anxiety disorder, chronic pain/neuropathy who is admitted for evaluation of encephalopathy. Patient was found to have acute hypoxic respiratory failure. She was found to have pneumonia in bilateral lung. Bio-Fire was positive for coronavirus OC 43. Patient was treated with antibiotics with vancomycin for possible MRSA pneumonia as suggested by infectious disease. Patient was found to have JAVI on CKD during the hospitalization likely secondary to sepsis/hypertensive episodes. Her creatinine up trended to 3.1 Mg per DL; was started on IV fluids and midodrine. Patient's creatinine down trended to 2.4 at the time of the discharge. Nephrology recommended to encourage oral hydration. Patient will have BMP done as outpatient. For persistent headache, Neurology was consulted. She underwent MRV as recommended by them; neurology recommended patient's Lamictal to be increased to 50 mg at night; continue on Lamictal 25 mg in AM. She was also started on prednisone for 5 days. Patient to follow-up with neurology as outpatient. Patient dose of Lyrica was decreased to 25 mg 3 times daily given her JAVI. Patient's torsemide and metolazone was kept on hold at discharge. It may need to be restarted as outpatient. PT OT evaluation was done; patient was discharged to [facility] for rehab. Please note the above document was generated using voice recognition software. It may contain grammatical, syntax or spelling errors. Any formal questions or concerns about the content, text or information contained within the body of this dictation should be directly addressed to the provider for clarification Total Time Total Time Spent Total Time Spent (In Minutes): 35 Total Time Includes: Examination of the Patient, Discharge Planning, Medication Reconciliation, Communication With Other Providers and Other Discharge Plan Discharge Items Patient Disposition: Transfer Long Term Fac Reason For Visit: HYPOTENSION, RESP FAILURE Discharge Diagnosis: MRSA pneumonia Acute encephalopathy Persistent headache JAVI on CKD Activity: Resume your previous activity Non-emergency contact: Primary Care Provider Call non-emergency contact if: you have any medication questions and your symptoms worsen Follow-up/Referrals: Petra Marx MD [Primary Care Provider] - Diet: Regular Addtl Attending Provider Instructions: You were admitted to the hospital due to pneumonia and encephalopathy. You are treated with antibiotics during the hospitalization. You are found to have acute kidney injury. Your kidney function are improving. Please continue to drink 1.5 to 2 L of water every day. You will need to have BMP done on December 23, 2023 to check on your kidney function. Your creatinine at discharge is 2.24. Your torsemide and metolazone has been discontinued at this point. They might need to be restarted down the road if your kidney function have improved. Please make an appointment with classified copy control clerk in 2 weeks. For headache, Lamictal dose has been increased to 50 mg at night; continue taking 25 mg in the morning. You are prescribed prednisone 60 mg to be taken for total of 5 days. Please follow-up with your primary care doctor after discharge from rehab. Pending Studies at Discharge: No Stand-Alone Forms: My [facility] Skilled Items Patient informed of condition?: Yes DNR: No Discharge Level of Care: Skilled Communicable Disease: No Discharge Prognosis: Stable Lines: None Urinary Catheter: No Medications and DC Order Prescriptions: New valacyclovir 500 mg Tablet 500 mg PO Q48H Qty: 60 0RF duloxetine 30 mg Capsule,Delayed Release(Dr/Ec) 30 mg PO QAM Qty: 30 0RF prednisone 20 mg Tablet 60 mg PO DAILY 5 Days Qty: 15 0RF lamotrigine [Lamictal] 25 mg Tablet 25 mg PO QAM Qty: 30 0RF lamotrigine [Lamictal] 25 mg Tablet 50 mg PO HS Qty: 60 0RF fluticasone propionate 50 mcg/actuation Winslow,Suspension 2 spray NA DAILY Qty: 16 0RF pregabalin 25 mg capsule 25 mg PO Q8H Qty: 90 0RF Continued Prolia 60 mg/mL syringe 60 mg subcut Q180D Qty: 1 1RF ipratropium-albuterol 0.5 mg-3 mg(2.5 mg base)/3 mL Solution For Nebulization 3 ml INHALATION Q4H PRN (Reason: Shortness Of Breath Or Wheezing) Qty: 90 0RF cetirizine 10 mg tablet 10 mg PO DAILY PRN (Reason: Allergy Symptoms) Qty: 30 0RF cyanocobalamin (vitamin B-12) [Vitamin B-12] 1,000 mcg Tablet 1,000 mcg PO DAILY Qty: 30 0RF levothyroxine 88 mcg tablet 88 mcg PO QAM Qty: 30 3RF ropinirole 0.5 mg tablet 0.5 mg PO HS Qty: 30 0RF Rx Instructions: bedtime with food nitroglycerin [Nitrostat] 0.4 mg Tablet, Sublingual 0.4 mg sublingual DIRECTED PRN (Reason: Chest Pain) Qty: 30 0RF Rx Instructions: 1 under tongue as needed for chest pain may repeat up to 3 times. montelukast 10 mg tablet 10 mg PO HS Qty: 30 0RF calcitriol 0.5 mcg capsule 0.5 mcg PO BID Qty: 60 5RF Rx Instructions: morning and bedtime [id number] Tablet 1 tab PO DAILY Qty: 30 0RF rosuvastatin 10 mg tablet 10 mg PO QAM Qty: 30 0RF omeprazole magnesium 20 mg tablet,delayed release (DR/EC) 20 mg PO BID Qty: 30 0RF Rx Instructions: morning and bedtime Creon 24,000-76,000 -120,000 unit Capsule,Delayed Release(Dr/Ec) 4 cap PO TID Qty: 120 0RF fluticasone furoate-vilanterol [Breo Ellipta] 200-25 mcg/dose Blister With Device 1 inh INHALATION QAM Qty: 60 0RF albuterol sulfate 90 mcg/actuation aerosol powdr breath activated 2 inh INH Q6H PRN (Reason: Shortness Of Breath Or Wheezing) Qty: 1 3RF Changed calcium carbonate [Calcium 600] 600 mg calcium (1,500 mg) tablet 1,200 mg PO DAILY Qty: 60 0RF Discontinued colesevelam [WelChol] 625 mg tablet 625 mg PO TID Patient Comments: before meals , morning , noon and night pregabalin 100 mg capsule 100 mg PO TID 30 Days Qty: 90 5RF torsemide 20 mg tablet 20 mg PO BID valacyclovir 500 mg tablet 500 mg PO QAM metolazone 2.5 mg Tablet 2.5 mg PO WK Rx Instructions: THURSDAYS, FOLLOWED IN 20 MINUTES BY DAILY TORSEMIDE. oxycodone-acetaminophen [Percocet] 5-325 mg Tablet 1 tab PO Q6H PRN (Reason: Pain) Anti-Itch(diphenhyd) with Zinc 2-0.1 % Cream 1 applic EXT QID PRN (Reason: itching) Qty: 30 0RF topiramate 25 mg Tablet 25 mg PO HS Qty: 54 0RF Rx Instructions: 1 p.o. daily daily for 6 days and then 1 p.o. twice daily. potassium chloride 20 mEq Tablet,Er Particles/Crystals 20 meq PO TID Qty: 90 0RF Gemtesa 75 mg tablet 75 mg PO QAM lamotrigine 25 mg tablet See Rx Instructions .ROUTE .COMPLEX Rx Instructions: TAKES 25 MG QAM, THEN 50 MG QPM potassium citrate 15 mEq tablet extended release 15 meq PO BID Discharge Orders: Discharge Order (Routine); Ordered 12/19/23 Ordered By: Souleymane Rodarte Admission Data Admit Date/Time: 11/30/23 01:05 Attending Provider: Souleymane Rodarte Admit Provider: Austin Cummings Primary Care Provider: Petra Marx Other Providers: Jennifer Kwan; Austin Cummings; Alek Baron; Alec Painting; Neal Younger I.; Jamie Wilson II; Geri Chisholm; Tano Woods; Malcom Fletcher; Emelina Walsh; Amaury Smith; Fady Quevedo; Toy Huynh; Rani Hernandez; Yaron Mayer; Rani Varela; Danny Rubi; Enio Elkins; Edward Buck; Kevon Tenorio; Rach Lee; Frankie Juarez; rEvin Yanes; Lowell Pittman; Tim Day; Dinora Hogan; Serenity Wallace; Kevon Byrd Other Interventions: Discharge Summary Assessment (RN) Last Done: 12/19/23 13:36
--- NOTE | 2023-12-22 06:30 | Coding Query ---
SEPSIS To promote full compliance with coding requirements relating to patient care, physician participation is requested in all cases of venetian blind washer uncertainty. Please assist us with the question(s) below: The medical record reflects the following clinical findings: Pt admitted with MRSA pneumonia. Discharge Summary stated under encephalopathy : " Patient found to have JAVI on CKD during hospitalization secondary to Sepsis / hypertensive episodes". Please check below , if applicable, the diagnosis that was treated during this inpatient stay. thank you. Aamir Tyson, [facility]. ____ ( )Bacteremia (Nonspecific laboratory finding of bacteria in the blood)- Ruled out Specify Organism ( ) Present on Admission ( ) Not present on admission ( ) Unable to clinically determine ( ) Septicemia (Systemic disease associated with the presence of pathogenic microorganisms in the blood): Ruled out ( ) Present on Admission ( ) Not present on admission ( ) Unable to clinically determine ( ) Sepsis Specify Organism Specify Associated Condition/Diagnosis (X ) Present on Admission ( ) Not present on admission ( ) Unable to clinically determine ( ) Severe Sepsis (Sepsis associated with acute organ dysfunction) Specify Organism Specify Associated Condition/Diagnosis ( X) Present on Admission ( ) Not present on admission ( X) Unable to clinically determine ( ) Septic Shock (Severe sepsis with acute circulatory failure, unexplained by other causes)- RUled out ( ) Present on Admission ( ) Not present on admission ( ) Unable to clinically determine ( ) Other, patient has: MTDD
== END 2023-12-19 14:16 | DRG 871 ==
LOC: ED 19:29 → EDINP 11-30 01:05 → SUATTDRO 11-30 01:05 → 2S 11-30 03:34 → 2W 12-18 21:41

== ENCOUNTER 2024-02-04 15:43 | Inpatient (IN) ==
[2024-02-04 16:45] LABS: Basophils # (auto) 0.05 K/uL (0.00-0.20); Basophils % (auto) 0.9 %; Eosinophils # (auto) 0.08 K/uL (0.00-0.50); Eosinophils % (auto) 1.5 %; Hematocrit (blood only) 37.1 % (37.0-47.0); Hemoglobin 11.9 g/dl (12.0-16.0); Immature Granulocytes # (auto) 0.01 K/uL (0.01-0.20); Immature Granulocytes % (auto) 0.2 %; Lymphocytes # (auto) 0.99 K/uL (1.20-3.40); Lymphocytes % (auto) 18.1 %; Mean Corpuscular Hemoglobin 29.5 pg (25.0-34.0); Mean Corpuscular Hgb Conc 32.1 g/dL (32.0-36.0); Mean Corpuscular Volume 92.1 fL (80.0-100.0); Mean Platelet Volume 9.6 fL (9.4-12.4); Monocytes # (auto) 0.57 K/uL (0.11-0.59); Monocytes % (auto) 10.4 %; Neutrophils # (auto) 3.78 K/uL (1.40-6.50); Neutrophils % (auto) 68.9 %; Platelet Count 203 K/uL (130-400); RDW Coefficient of Variation 18.6 % (11.5-14.5); RDW Standard Deviation 63.4 fL (36.4-46.3); Red Blood Count 4.03 M/uL (4.20-5.40); White Blood Count 5.48 K/ul (4.8-10.8)
[2024-02-04 17:00] LABS: Alanine Aminotransferase 15 U/L (7-52); Albumin Globulin Ratio 1.8 (0.9-2); Albumin Level 3.9 gm/dl (3.4-5.0); Alkaline Phosphatase 55 U/L (34-104); Anion Gap 7 (3-11); Aspartate Aminotransferase 20 U/L (13-39); BUN Creatinine Ratio 17.6 (10-20); Bilirubin,Total 0.3 mg/dl (0.2-1.0); Blood Urea Nitrogen 16 mg/dl (6-23); Calcium 8.1 mg/dl (8.6-10.3); Carbon Dioxide 17 mmol/L (21-32); Chloride 117 mmol/L (98-107); Est GFR (African American) 73.6 ml/min; Est GFR (Non-African American) 63.5 ml/min; Globulin 2.2 gm/dl (2.5-4.0); Glucose 99 mg/dl (70-99(Fasting)); Lipase 9 U/L (11-82); Potassium 3.4 mmol/L (3.5-5.1); Sodium 141 mmol/L (136-145); Total Protein 6.1 gm/dl (6.0-8.3)
[2024-02-04 18:08] LABS: Appearance Urine Clear (Clear); Bacteria Urine Automated 4+ (None Seen); Bilirubin Urine 1+ (Negative); Blood Urine Negative (Negative); Cast Urine Automated 0-2 /lpf (0-2); Color Urine Dark Yellow; Epithelial Cell Urine Auto 0-2 /hpf (0-2); Glucose Urine UA Negative (Negative); Ketones Urine Negative (Negative); Leukocyte Esterase Urine 1+ (Negative); Nitrite Urine Positive (Negative); Protein Urine 1+ (Negative); RBC Urine Automated 0-2 /hpf (0-2); Specific Gravity Urine 1.014 (1.000-1.030); Urobilinogen Urine Negative (Negative); pH Urine 5.5 (4.5-7.5)
[2024-02-04] MEDS: ONDANSETRON INJ 2 MG/ML 2 ML VIAL IV STA (18:29)
[2024-02-04] MEDS: fentaNYL citrate PF 100 MCG/2 ML VIAL IV STA (18:30)
--- NOTE | 2024-02-04 18:47 | Emergency Department Note ---
Impression & Plan Acute UTI, Nausea & vomiting, Abdominal pain, Weakness ED Provider Note Provider: Rufino Hill MD DATE OF SERVICE: 02/04/2024 CHIEF COMPLAINT: Nausea vomiting diarrhea, urinary symptoms, weakness HISTORY OF PRESENT ILLNESS: Patient is a 73-year-old female extensive past medical history including ILD, bronchiectasis, pacemaker, gastric bypass, history of CHF, extensive hospitalization here in November and December of this year presenting today via ambulance from her apartment. Has been home for several weeks. Did several weeks ago suffer a fall and hit her head. Has been experiencing headaches since October and has seen neurology previously for this. Reports she is here because over the last day or so she has had worsening of nausea and vomiting nonbloody in nature as well as diarrhea. Some diarrhea and some nausea has been persistent since prior admission but she says it is worsened. Pain in the upper abdomen but not particular the hernia that she has in this area. Denies significant chest pain or shortness of breath. Feeling generally weak and reports burning with urination. States that her doctor would not give her more Zofran to use at home for nausea. PAST MEDICAL HISTORY: As noted above MEDICATIONS: Reviewed medication SOCIAL HISTORY: Lives by herself in apartment PHYSICAL EXAM: GENERAL: alert and oriented in no acute distress on stretcher fatigued in appearance Head: normocephalic and atraumatic EYES: No injection, discharge or icterus. NECK: Trachea midline. ENT: Mucous membranes pink and moist. LUNGS: Airway patent. No retractions. Breath sounds clear HEART: Regular rate and rhythm. Right upper chest port is accessed. ABDOMEN: Soft and non-tender, without guarding or rebound. Soft nontender upper abdominal ventral hernia appreciated. SKIN: Acyanotic, warm, dry, without rashes EXTREMITIES: Without swelling, tenderness or deformity NEUROLOGICAL: No focal deficits. No aphasia. No facial droop or slurred speech. EK bpm normal sinus rhythm. No PVC or PAC. No acute ST segment elevation or depression with a QTc of 453. CONTINUOUS CARDIAC MONITORING: was ordered and showed a heart rate of 60s-70s bpm in normal sinus rhythm Patient's laboratory studies and imaging reviewed. Differential includes Infection, gastrointestinal issues, dehydration, metabolic abnormality, hypo/hyperglycemia, electrolyte disturbance, anemia, hypoxia, cardiac sources, toxicologic, neurologic/traumatic injury, as well as other pathologies. IMPRESSION/MEDICAL DECISION MAKING: Reviewed discharge summary from extensive hospitalization here recently. Will send stool testing given persistent diarrhea. Given a bit of Protonix but doubt GI bleed as she does not report any blood in vomit or diarrhea. Hernia is not tender. Will obtain CT of the head as well as the abdomen pelvis given her fall with some headache from several weeks ago persisting as well as upper abdominal discomfort. Blood work obtained from triage No significant cytosis. Stable to slightly improved anemia. Very slight hypokalemia but no significant acute renal dysfunction actually improved compared to previous. No evidence of acute hepatitis or pancreatitis. Will complete EKG and troponin but less likely be cardiac in nature denies chest pain. Endorsed urinary symptoms and has positive urinalysis. Last urine culture with ESBL as well as Pseudomonas. Discussed with pharmacy. Patient with extensive allergy list. Has tolerated ertapenem in the past and will try meropenem at this point pending further speciation. Will require IV antibiotics at this point. Respiratory viral panel was sent. Waiting for stool sample for stool testing. Given a small bottle of fentanyl for pain and some Zofran for nausea here. Given history of heart failure want to avoid significant IV fluid boluses. Do not believe she is septic. CT of the head as well as abdomen pelvis per radiology report without significant cute intra-abdominal abnormality. Abdominal report questions possibly enteritis or ileus but having diarrhea and I doubt obstruction or ileus. There could be the question of enteritis. Will bring to the hospital for treatment given her history of resistant UTIs and further evaluation of her abdominal symptoms. Hospitalist contacted. DIAGNOSIS: Weakness, acute UTI, abdominal pain, nausea and vomiting DISPOSITION: Hospitalist will evaluate Patient was agreeable with this plan. Past Med/Surg History Medical History (Updated 02/04/24 @ 18:47 by Rufino Hill M.D.) Difficulty swallowing "trouble swallowing pills" History of DVT (deep vein thrombosis) remote hx, unknown etiology, Right rotator cuff tear Junctional bradycardia Pulmonary hypertension mild per 07/[address] report Atherosclerosis of both lower extremities Lumbar transverse process fracture Pt reports lower back detioriating - can't lie flat/sleep on a chair Pulmonary nodule seen on imaging study Wrist injury Scar tissue surrounding remote wrist ORIF several years ago resulting in intermittent inflammation per pt Bilateral nephrolithiasis H/O concussion Remote hx "a long time ago" Incisional hernia Abdominal (from multiple surgeries/feeding tube) Sepsis 05/2020 @ [facility], urosepsis 2/2 obstructing renal stone, S/P cysto/stent and ESWL Chronic urinary tract infection recent hospitalization for this at [facility] DC'ed 11/05/23 > pt reports she is still very fatigued Chronic venous insufficiency Port-A-Cath in place right side due to poor vascular access Urinary leakage PUD (peptic ulcer disease) Had feeding tube for 28 years (has been removed for 11 years) Lumbar stenosis Short bowel syndrome Surgical History History of esophageal dilatation History of cystoscopy multiple H/O shoulder surgery RT arthroscopy 05/28/2021: LMA#4 atraumatic x 1 + PNB. Anesthesia postop progress note: "Pt denies SOB at this time. Block is functioning well. Vital signs stable and appropriate. Oxygenating well considering block placement and her comorbidities. Plan to discharge home with IS." S/P right rotator cuff repair S/P ureteral stent placement Status post laser lithotripsy of ureteral calculus History of prior ablation treatment Right LE in January 2020 and left LE 04/18/20 History of partial gastrectomy History of sinus surgery History of tonsillectomy and adenoidectomy History of total abdominal hysterectomy and bilateral salpingo-oophorectomy History of cholecystectomy History of appendectomy History of open reduction and internal fixation (ORIF) procedure left wrist + manipulation (01/2018) and I&D (10/2019) History of joint replacement Rt thumb History of knee replacement procedure of right knee History of esophagogastroduodenoscopy (EGD) History of colonoscopy History of gastrointestinal surgery multiple History of cardiac cath 08/2019 ([facility])- essentially normal coronary arteries angiographically, no stents Family History Mother Family history of diabetes mellitus Sister Family history of diabetes mellitus Family history of breast cancer Father Esophageal cancer Other Family history non-contributory No family history of adverse response to anesthesia Social History Smoking Status: Never smoker Second Hand Exposure: No; Do You Dip or Chew Tobacco: No; Hx Alcohol Use: Yes Alcohol type: beer Hx Substance Use: No Preferred Language: Croatian Communication Ability: Effective Visual Impairment: No Limitations [employer] Required: No Beliefs That Will Affect Care: None marital status: Single Current Living Situation: Personal Care Facility Current Living Situation Comment: apartment at [facility] in [place]/ had aid How many Children do You have: 0 Feels Safe at Home: Yes Assistive Devices: Walker Allergies Allergies Allergy/AdvReac Type Severity Reaction Status Date / Time bethanechol Allergy Intermediate RASH, Verified 02/04/24 19:35 "FEELS FUNNY" Cephalosporins Allergy Intermediate RASH, Verified 02/04/24 19:35 DIARRHEA levofloxacin Allergy Intermediate RASH,TURNED Verified 02/04/24 19:35 RED Sulfa (Sulfonamide Allergy Intermediate Generalized Verified 02/04/24 19:35 Antibiotics) Rash ertapenem Allergy Mild RASH Verified 02/04/24 19:35 atropine Allergy Unknown ON [facility] MED Verified 02/04/24 19:35 LIST clindamycin Allergy Unknown Unknown Verified 02/04/24 19:35 dipyridamole Allergy Unknown PERSANTINE--ON Verified 02/04/24 19:35 [facility] MED LIST droperidol Allergy Unknown Unknown Verified 02/04/24 19:35 meperidine [From Demerol] Allergy Unknown ? ALLERGY Verified 02/04/24 19:35 ON [facility] MED LIST promethazine Allergy Unknown UNKNOWN Verified 02/04/24 19:35 tobramycin Allergy Unknown UNKNOWN Verified 02/04/24 19:35 aspirin AdvReac Severe BLEEDING Verified 02/04/24 19:35 doxycycline AdvReac Severe severe Verified 02/04/24 19:35 Diarrhea, nausea metolazone AdvReac Severe ELECTROLYTE Verified 02/04/24 19:35 ISSUES--HYPOKALEMIA bupropion AdvReac Intermediate NERVOUS Verified 02/04/24 19:35 REACTION cephalexin AdvReac Intermediate GI SYMPTOMS Verified 02/04/24 19:35 morphine AdvReac Intermediate NERVOUS Verified 02/04/24 19:35 REACTION TO IT nitrofurantoin AdvReac Intermediate Vomiting Verified 02/04/24 19:35 [From Macrobid] prochlorperazine AdvReac Intermediate NERVOUS Verified 02/04/24 19:35 REACTION tedizolid AdvReac Intermediate GI SYMPTOMS Verified 02/04/24 19:35 venlafaxine [From Effexor] AdvReac Intermediate NERVOUS Verified 02/04/24 19:35 REACTION lamotrigine AdvReac Unknown tremors Verified 02/04/24 19:35 Home Meds Previous Rx's Medication Instructions Recorded denosumab 60 mg/mL subcutaneous 60 mg subcut Q180D #1 mL 07/22/23 syringe (Prolia) albuterol sulfate 90 mcg/actuation 2 inh inhalation Q6H PRN Shortness 12/19/23 breath activated powder inhaler Of Breath Or Wheezing #1 ea calcium carbonate (Calcium 600) 1,200 mg (2 x 600 mg calcium 12/19/23 (1,500 mg)) PO DAILY #60 tabs cetirizine 10 mg tablet 10 mg PO DAILY PRN Allergy 12/19/23 Symptoms #30 tabs cyanocobalamin (vitamin B-12) 1,000 mcg PO DAILY #30 tabs 12/19/23 1,000 mcg tablet (Vitamin B-12) duloxetine 30 mg capsule,delayed 30 mg PO QAM #30 caps 12/19/23 release fluticasone furoate 200 1 inh inhalation QAM #60 ea 12/19/23 mcg-vilanterol 25 mcg/dose inhalation powder (Breo Ellipta) fluticasone propionate 50 2 spray NA DAILY #16 grams 12/19/23 mcg/actuation nasal spray,suspension ipratropium 0.5 mg-albuterol 3 mg 3 ml inhalation Q4H PRN Shortness 12/19/23 (2.5 mg base)/3 mL nebulization Of Breath Or Wheezing #90 mL soln lamotrigine 25 mg tablet (Lamictal) 25 mg PO QAM #30 tabs 12/19/23 lamotrigine 25 mg tablet (Lamictal) 50 mg (2 x 25 mg) PO HS #60 tabs 12/19/23 levothyroxine 88 mcg tablet 88 mcg PO QAM #30 tabs 12/19/23 nnlzmb-rncmewis-ndwmwum 4 cap PO TID #120 caps 12/19/23 24,000-76,000-120,000 unit capsule,delayed rel (Creon) montelukast 10 mg tablet 10 mg PO HS #30 tabs 12/19/23 aofwtjpbmroc-fqejnfuj-tgryna tablet 1 tab PO DAILY #30 tabs 12/19/23 nitroglycerin 0.4 mg sublingual 0.4 mg sublingual DIRECTED PRN 12/19/23 tablet (Nitrostat) Chest Pain #30 tabs omeprazole magnesium 20 mg 20 mg PO BID #30 tabs 12/19/23 tablet,delayed release pregabalin 25 mg capsule 25 mg PO Q8H #90 caps 12/19/23 ropinirole 0.5 mg tablet 0.5 mg PO HS #30 tabs 12/19/23 rosuvastatin 10 mg tablet 10 mg PO QAM #30 tabs 12/19/23 valacyclovir 500 mg tablet 500 mg PO Q48H #60 tabs 12/19/23 calcitriol 0.5 mcg capsule 1 mcg (2 x 0.5 mcg) PO BID #120 12/29/23 caps Results & Data (ED) Vital Signs Vital Signs - 24 hr 02/04/24 15:50 02/04/24 17:37 02/04/24 17:39 Temperature 37.1 C Temperature Source Oral Pulse Rate 77 72 Pulse Rate [Apical] 73 Pulse Rate from SpO2 Sensor Respiratory Rate 18 18 24 Respiratory Effort / Characteristics Non-Labored Non-Labored Respiratory Depth Normal Normal Respiratory Pattern Regular Blood Pressure 130/75 Blood Pressure [Right Arm] 168/87 H Blood Pressure Mean 93 Blood Pressure Mean [Right Arm] 114 Pulse Oximetry 95 97 Oxygen Delivery Method Room Air Room Air Sepsis Recent Fever Within 48 Hours No Sepsis New/Unexplained Change in Mental Status N/A Sepsis Action Taken by Nursing No Action Required 02/04/24 17:44 02/04/24 17:46 02/04/24 17:50 Temperature Temperature Source Pulse Rate 71 71 71 Pulse Rate [Apical] Pulse Rate from SpO2 Sensor Respiratory Rate 15 19 Respiratory Effort / Characteristics Respiratory Depth Respiratory Pattern Blood Pressure Blood Pressure [Right Arm] Blood Pressure Mean Blood Pressure Mean [Right Arm] Pulse Oximetry Oxygen Delivery Method Sepsis Recent Fever Within 48 Hours Sepsis New/Unexplained Change in Mental Status Sepsis Action Taken by Nursing 02/04/24 18:00 02/04/24 18:10 02/04/24 18:20 Temperature Temperature Source Pulse Rate 69 77 76 Pulse Rate [Apical] Pulse Rate from SpO2 Sensor Respiratory Rate 14 18 15 Respiratory Effort / Characteristics Respiratory Depth Respiratory Pattern Blood Pressure Blood Pressure [Right Arm] Blood Pressure Mean Blood Pressure Mean [Right Arm] Pulse Oximetry Oxygen Delivery Method Sepsis Recent Fever Within 48 Hours Sepsis New/Unexplained Change in Mental Status Sepsis Action Taken by Nursing 02/04/24 18:28 02/04/24 18:28 02/04/24 18:30 Temperature Temperature Source Pulse Rate 77 Pulse Rate [Apical] Pulse Rate from SpO2 Sensor Respiratory Rate 18 Respiratory Effort / Characteristics Respiratory Depth Respiratory Pattern Blood Pressure 138/73 132/96 Blood Pressure [Right Arm] Blood Pressure Mean 115 106 Blood Pressure Mean [Right Arm] Pulse Oximetry Oxygen Delivery Method Sepsis Recent Fever Within 48 Hours Sepsis New/Unexplained Change in Mental Status Sepsis Action Taken by Nursing 02/04/24 18:30 02/04/24 18:51 02/04/24 19:00 Temperature Temperature Source Pulse Rate 77 78 75 Pulse Rate [Apical] Pulse Rate from SpO2 Sensor 77 76 Respiratory Rate 19 16 14 Respiratory Effort / Characteristics Respiratory Depth Respiratory Pattern Blood Pressure Blood Pressure [Right Arm] Blood Pressure Mean Blood Pressure Mean [Right Arm] Pulse Oximetry 97 94 Oxygen Delivery Method Sepsis Recent Fever Within 48 Hours Sepsis New/Unexplained Change in Mental Status Sepsis Action Taken by Nursing 02/04/24 19:51 02/04/24 20:01 02/04/24 20:10 Temperature Temperature Source Pulse Rate 77 80 79 Pulse Rate [Apical] Pulse Rate from SpO2 Sensor 76 79 80 Respiratory Rate 15 16 16 Respiratory Effort / Characteristics Respiratory Depth Respiratory Pattern Blood Pressure Blood Pressure [Right Arm] Blood Pressure Mean Blood Pressure Mean [Right Arm] Pulse Oximetry 94 95 96 Oxygen Delivery Method Sepsis Recent Fever Within 48 Hours Sepsis New/Unexplained Change in Mental Status Sepsis Action Taken by Nursing Laboratory Data 02/04/24 16:23 02/04/24 16:23 Lab Results 02/04/24 02/04/24 02/04/24 Range/Units 16:23 17:36 18:24 WBC 5.48 (4.8-10.8) K/ul RBC 4.03 L (4.20-5.40) M/uL Hgb 11.9 L (12.0-16.0) g/dl Hct 37.1 (37.0-47.0) % MCV 92.1 (80.0-100.0) fL MCH 29.5 (25.0-34.0) pg MCHC 32.1 (32.0-36.0) g/dL RDW Std Deviation 63.4 H (36.4-46.3) fL RDW Coeff of David 18.6 H (11.5-14.5) % Plt Count 203 (130-400) K/uL MPV 9.6 (9.4-12.4) fL Immature Gran % (Auto) 0.2 % Neut % (Auto) 68.9 % Lymph % (Auto) 18.1 % [facility] % (Auto) 10.4 % Eos % (Auto) 1.5 % Baso % (Auto) 0.9 % Neut # (Auto) 3.78 (1.40-6.50) K/uL Lymph # (Auto) 0.99 L (1.20-3.40) K/uL [facility] # (Auto) 0.57 (0.11-0.59) K/uL Eos # (Auto) 0.08 (0.00-0.50) K/uL Baso # (Auto) 0.05 (0.00-0.20) K/uL Immature Gran # (Auto) 0.01 (0.01-0.20) K/uL Sodium 141 (136-145) mmol/L Potassium 3.4 L (3.5-5.1) mmol/L Chloride 117 H (98-107) mmol/L Carbon Dioxide 17 L (21-32) mmol/L Anion Gap 7 (3-11) BUN 16 (6-23) mg/dl Creatinine 0.91 (0.6-1.2) mg/dl Est Cr Clr Drug Dosing Not Reportable Est GFR ( Amer) 73.6 ml/min Est GFR (Non-Af Amer) 63.5 ml/min BUN/Creatinine Ratio 17.6 (10-20) Glucose 99 (70-99(Fasting)) mg/dl Calcium 8.1 L (8.6-10.3) mg/dl Magnesium 2.0 (1.7-2.4) mg/dl Total Bilirubin 0.3 (0.2-1.0) mg/dl AST 20 (13-39) U/L ALT 15 (7-52) U/L Alkaline Phosphatase 55 (34-104) U/L Troponin I High Sens 13.9 (0-14) pg/ml Total Protein 6.1 (6.0-8.3) gm/dl Albumin 3.9 (3.4-5.0) gm/dl Globulin 2.2 L (2.5-4.0) gm/dl Albumin/Globulin Ratio 1.8 (0.9-2) Lipase 9 L (11-82) U/L TSH 1.239 (0.300-4.500) uIu/ml Urine Color Dark Yellow Urine Appearance Clear (Clear) Urine pH 5.5 (4.5-7.5) Ur Specific [place] 1.014 (1.000-1.030) Urine Protein 1+ H (Negative) Urine Glucose (UA) Negative (Negative) Urine Ketones Negative (Negative) Urine Blood Negative (Negative) Urine Nitrite Positive A (Negative) Urine Bilirubin 1+ H (Negative) Urine Urobilinogen Negative (Negative) Ur Leukocyte Esterase 1+ H (Negative) Urine WBC (Auto) 6-10 H (0-5) /hpf Urine RBC (Auto) 0-2 (0-2) /hpf U Hyaline Cast (Auto) 0-2 (0-2) /lpf U Epithel Cells (Auto) 0-2 (0-2) /hpf Urine Bacteria (Auto) 4+ H (None Seen) Adenovirus (PCR) Not Detected (NotDetected) B. pertussis DNA (PCR) Not Detected (NotDetected) B.parapertussis DNA PCR Not Detected (NotDetected) C. pneumoniae DNA (PCR) Not Detected (NotDetected) Coronavirus OC43 (PCR) Not Detected (NotDetected) Coronavirus HKU1 (PCR) Not Detected (NotDetected) Coronavirus 229E (PCR) Not Detected (NotDetected) SARS-CoV-2 (PCR) Not Detected (NotDetected) Coronavirus NL63 (PCR) Not Detected (NotDetected) Human Metapneumovir PCR Not Detected (NotDetected) Influenza Type A (PCR) Not Detected (NotDetected) Influenza Type B (PCR) Not Detected (NotDetected) M. pneumoniae (PCR) Not Detected (NotDetected) Parainfluenza 1 (PCR) Not Detected (NotDetected) Parainfluenza 2 (PCR) Not Detected (NotDetected) Parainfluenza 3 (PCR) Not Detected (NotDetected) Parainfluenza 4 (PCR) Not Detected (NotDetected) RSV (PCR) Not Detected (NotDetected) Entero/Rhino (PCR) Not Detected (NotDetected) Administered Medications Meropenem 500 mg/ Syringe 10 mls @ 2 mls/min IV Q8H [facility]; Protocol Stop: 02/06/24 18:29 Last Admin: 02/04/24 19:10 Dose: 2 mls/min Documented By: JOSIE Discontinued Medications Clonidine HCl (Clonidine Hcl 0.1 Mg Tab) 0.1 mg PO NOW ONE Stop: 02/04/24 20:25 Last Admin: 02/04/24 21:10 Dose: Not Given Documented By: KAREN Fentanyl Citrate (Fentanyl Citrate Pf 100 Mcg/2 Ml Vial) 50 mcg IV NOW STA Stop: 02/04/24 18:18 Last Admin: 02/04/24 18:30 Dose: 50 mcg Documented By: CITLALY Pantoprazole Sodium 80 mg/ (Dextrose) 120 mls @ 480 mls/hr IV ONE STA Stop: 02/04/24 18:28 Last Infusion: 02/04/24 19:53 Dose: Infused Documented By: Admin: 02/04/24 19:10 Dose: 480 mls/hr Documented By: JOSIE Ondansetron HCl (Ondansetron Inj 2 Mg/Ml 2 Ml Vial) 4 mg IV NOW STA Stop: 02/04/24 18:17 Last Admin: 02/04/24 18:29 Dose: 4 mg Documented By: CITLALY Potassium Chloride (Potassium Chloride Pwd 20 Meq Pack) 40 meq PO NOW STA Stop: 02/04/24 20:26 Last Admin: 02/04/24 21:08 Dose: 40 meq Documented By: KAREN Imaging Data Radiologist's Impression: Abdomen/Pelvis CT 02/04/24 18:03 Exam(s): CT ABDOMEN + PELVIS Without Contrast EXAM: CT Abdomen and Pelvis Without Intravenous Contrast CLINICAL HISTORY: Reason for exam: n/v/d, weak, gastric bypass hx. TECHNIQUE: Axial computed tomography images of the abdomen and pelvis without intravenous contrast. CTDI is 21.36 mGy and DLP is 999.33 mGy-cm. Automated exposure control was utilized for the study. A dose lowering technique was utilized adhering to the principles of ALARA. COMPARISON: CT abdomen/pelvis on 12/02/2023 FINDINGS: Lung bases: Lower lung atelectasis and possible chronic interstitial lung changes. Heart: Postsurgical changes of the heart. ABDOMEN: Liver: Mild hepatomegaly. Gallbladder and bile ducts: Prior cholecystectomy. No ductal dilation. Pancreas: Unremarkable. No ductal dilation. Spleen: Unremarkable. No splenomegaly. Adrenals: Unremarkable. No mass. Kidneys and ureters: Atrophy of the right kidney. Nonobstructing bilateral renal stones. No hydronephrosis or ureteral stone. Stomach and bowel: Fluid and gas-filled small bowel loops could represent enteritis or ileus in the appropriate clinical setting. Bowel loops are again noted to be bulging along a diastatic anterior abdominal wall just under the skin surface. Gastric bypass changes. Evaluation of the stomach is limited by slight under distention. PELVIS: Appendix: Appendix is not visualized on this exam. Bladder: Unremarkable. No stones. Reproductive: Prior hysterectomy. ABDOMEN and PELVIS: Intraperitoneal space: Unremarkable. No free air. No significant fluid collection. Bones/joints: Mild degenerative changes of the spine. Chronic mild endplate depressions at L2-3. No acute fracture. No dislocation. Soft tissues: Injection granulomas in the gluteal soft tissues. Vasculature: Phleboliths in the pelvis. No abdominal aortic aneurysm. Lymph nodes: Unremarkable. No enlarged lymph nodes. IMPRESSION: 1. Fluid and gas-filled small bowel loops could represent enteritis or ileus in the appropriate clinical setting. 2. Atrophy of the right kidney. Nonobstructing bilateral renal stones. No hydronephrosis or ureteral stone. 3. Bowel loops are again noted to be bulging along a diastatic anterior abdominal wall just under the skin surface. Electronically signed by: Atif Donald M.D. 02/04/24 19:[address] 02/04/24 18:13 Exam(s): CT HEAD Without Contrast EXAM: CT Head Without Intravenous Contrast CLINICAL HISTORY: Reason for exam: fall, headaches. TECHNIQUE: Axial computed tomography images of the head/brain without intravenous contrast. CTDI is 34.77 mGy and DLP is 546.36 mGy-cm. Automated exposure control was utilized for the study. A dose lowering technique was utilized adhering to the principles of ALARA. COMPARISON: CT head on 11/29/2023 FINDINGS: Brain: No acute infarct or hemorrhage identified. No extra-axial fluid collection. No mass effect or midline shift. Scattered areas of hypoattenuation in the supratentorial white matter likely represent chronic small vessel ischemic changes. Ventricles and sulci: Prominence of the ventricles and sulci is likely secondary to cerebral volume loss. Bones: Normal. No bony lesion or acute fracture. Subcutaneous tissues: Normal. Sinuses: Mucosal thickening partially seen in right and left maxillary sinuses. Hyperostosis of the [place] of the right maxillary sinus, suggesting chronic sinusitis. Mild mucosal thickening in the ethmoid air cells. Mastoid air cells: Normal. Orbits: Bilateral lens implants. Other: Atherosclerotic calcifications in the intracranial vasculature. IMPRESSION: 1. No acute intracranial abnormality. 2. Mild chronic small vessel ischemic changes and cerebral volume loss. Electronically signed by: Atif Donald M.D. 02/04/24 19:10 PM Discharge Plan Visit Data Chief Complaint: Urinary Symptoms ED Provider: Rufino Hill Discharge Problem: Acute UTI, Nausea & vomiting, Abdominal pain, Weakness Patient Disposition: Admitted As Inpatient Discharge Instructions Interventions: ED Discharge Assessment Last Done: 02/04/24 21:55
[2024-02-04 19:03] LABS: Troponin I High Sensitivity 13.9 pg/ml (0-14)
--- NOTE | 2024-02-04 19:07 | CT Scan Report ---
Exam(s): CT ABDOMEN + PELVIS Without Contrast EXAM: CT Abdomen and Pelvis Without Intravenous Contrast CLINICAL HISTORY: Reason for exam: n/v/d, weak, gastric bypass hx. TECHNIQUE: Axial computed tomography images of the abdomen and pelvis without intravenous contrast. CTDI is 21.36 mGy and DLP is 999.33 mGy-cm. Automated exposure control was utilized for the study. A dose lowering technique was utilized adhering to the principles of ALARA. COMPARISON: CT abdomen/pelvis on 12/02/2023 FINDINGS: Lung bases: Lower lung atelectasis and possible chronic interstitial lung changes. Heart: Postsurgical changes of the heart. ABDOMEN: Liver: Mild hepatomegaly. Gallbladder and bile ducts: Prior cholecystectomy. No ductal dilation. Pancreas: Unremarkable. No ductal dilation. Spleen: Unremarkable. No splenomegaly. Adrenals: Unremarkable. No mass. Kidneys and ureters: Atrophy of the right kidney. Nonobstructing bilateral renal stones. No hydronephrosis or ureteral stone. Stomach and bowel: Fluid and gas-filled small bowel loops could represent enteritis or ileus in the appropriate clinical setting. Bowel loops are again noted to be bulging along a diastatic anterior abdominal wall just under the skin surface. Gastric bypass changes. Evaluation of the stomach is limited by slight under distention. PELVIS: Appendix: Appendix is not visualized on this exam. Bladder: Unremarkable. No stones. Reproductive: Prior hysterectomy. ABDOMEN and PELVIS: Intraperitoneal space: Unremarkable. No free air. No significant fluid collection. Bones/joints: Mild degenerative changes of the spine. Chronic mild endplate depressions at L2-3. No acute fracture. No dislocation. Soft tissues: Injection granulomas in the gluteal soft tissues. Vasculature: Phleboliths in the pelvis. No abdominal aortic aneurysm. Lymph nodes: Unremarkable. No enlarged lymph nodes. IMPRESSION: 1. Fluid and gas-filled small bowel loops could represent enteritis or ileus in the appropriate clinical setting. 2. Atrophy of the right kidney. Nonobstructing bilateral renal stones. No hydronephrosis or ureteral stone. 3. Bowel loops are again noted to be bulging along a diastatic anterior abdominal wall just under the skin surface. Electronically signed by: Atif Donald M.D. 02/04/24 19:07 PM
[2024-02-04] MEDS: PANTOprazole 80 MG in DEXTROSE 5% 100 ML IV STA (19:10)
[2024-02-04] MEDS: MEROPENEM 500 MG in SYRINGE 0 ML IV SCH (19:10)
--- NOTE | 2024-02-04 19:11 | CT Scan Report ---
Exam(s): CT HEAD Without Contrast EXAM: CT Head Without Intravenous Contrast CLINICAL HISTORY: Reason for exam: fall, headaches. TECHNIQUE: Axial computed tomography images of the head/brain without intravenous contrast. CTDI is 34.77 mGy and DLP is 546.36 mGy-cm. Automated exposure control was utilized for the study. A dose lowering technique was utilized adhering to the principles of ALARA. COMPARISON: CT head on 11/29/2023 FINDINGS: Brain: No acute infarct or hemorrhage identified. No extra-axial fluid collection. No mass effect or midline shift. Scattered areas of hypoattenuation in the supratentorial white matter likely represent chronic small vessel ischemic changes. Ventricles and sulci: Prominence of the ventricles and sulci is likely secondary to cerebral volume loss. Bones: Normal. No bony lesion or acute fracture. Subcutaneous tissues: Normal. Sinuses: Mucosal thickening partially seen in right and left maxillary sinuses. Hyperostosis of the tidwell of the right maxillary sinus, suggesting chronic sinusitis. Mild mucosal thickening in the ethmoid air cells. Mastoid air cells: Normal. Orbits: Bilateral lens implants. Other: Atherosclerotic calcifications in the intracranial vasculature. IMPRESSION: 1. No acute intracranial abnormality. 2. Mild chronic small vessel ischemic changes and cerebral volume loss. Electronically signed by: Atif Donald M.D. 02/04/24 19:10 PM
[2024-02-04 20:25] LABS: Adenovirus PCR Not Detected (NotDetected); Bordetella parapertussis PCR Not Detected (NotDetected); Bordetella pertussis PCR Not Detected (NotDetected); Chlamydia pneumoniae PCR Not Detected (NotDetected); Coronavirus 229E PCR Not Detected (NotDetected); Coronavirus CoV-2 (COVID19)PCR Not Detected (NotDetected); Coronavirus HKU1 PCR Not Detected (NotDetected); Coronavirus NL63 PCR Not Detected (NotDetected); Coronavirus OC43PCR Not Detected (NotDetected); Human Metapneumovirus PCR Not Detected (NotDetected); Influenza A PCR Not Detected (NotDetected); Influenza B PCR Not Detected (NotDetected); Mycoplasma pneumoniae PCR Not Detected (NotDetected); Parainfluenza Virus 1 PCR Not Detected (NotDetected); Parainfluenza Virus 2 PCR Not Detected (NotDetected); Parainfluenza Virus 3 PCR Not Detected (NotDetected); Parainfluenza Virus 4 PCR Not Detected (NotDetected); Respiratory Syncytial VirusPCR Not Detected (NotDetected); Rhinovirus/Enterovirus PCR Not Detected (NotDetected)
[2024-02-04] MEDS: POTASSIUM CHLORIDE PWD 20 MEQ PACK PO STA (21:08)
[2024-02-04] MEDS: cloNIDine HCL 0.1 MG TAB PO ONE (21:10)
--- NOTE | 2024-02-04 21:21 | History & Physical Report ---
Date of Service February 04, 2024 Assessment & Plan (1) Complicated UTI (urinary tract infection): Plan: hx recurrent UTIs (ESBL E. coli infection, Pseudomonas on previous urine CS) No sepsis for now chronic diastolic heart failure (EF 55 to 60%, TTE 2022), patient on the dry side sinus node dysfunction sp PPM asthma/COPD/ILD, LARRY, pulmonary hypertension, lung status at baseline CRI, creatinine at baseline hx of gastric bypass, hypothyroidism, euthyroid as of today's TSH reactive hypoglycemia as per records, patient follows [facility] Endocrinology chronic anemia, hemoglobin better than baseline likely secondary to hemoconcentration Chronic diarrhea possible IBS as per GI evaluation from recent admission history pancreatic insufficiency/malabsorption as per records mood/anxiety disorder, stable chronic pain/neuropathy chronic headache, possible tension headaches as per neurology hx MRSA functional disability given recurrent admissions/compliance issues GMF CS, Meropenem following microbiologic history ID consult once CS results available IVF PT OT eval DVT prophylaxis. Lovenox subcu Full code Patient requesting for sister to be given periodic updates regarding care. Ms. Ivonne Martinez, contact #[phone]. Text document was generated using [employer] voice recognition software. It may contain grammatical or spelling errors. Kindly contact undersigned for clarification of any documentation item in question. History of Present Illness Chief Complaint: UTI symptoms Primary Care Provider: Petra Marx MD History obtained from patient and records. Medical history significant for chronic diastolic heart failure (EF 55 to 60%, TTE 2022), sinus node dysfunction sp PPM, asthma/COPD/ILD, LARRY, pulmonary hypertension, CRI (baseline creatinine 1.3), history of gastric bypass, hyperparathyroidism as per records, hypothyroidism, reactive hypoglycemia as per records, ankylosing spondylitis as per records, chronic anemia (baseline hemoglobin of 9-10), recurrent UTIs (hx ESBL E. coli infection), urolithiasis, history pancreatic insufficiency/malabsorption as per records, mood/anxiety disorder, chronic pain/neuropathy, chronic diarrhea, chronic headache, hx MRSA. Recent confinement 2 months ago for encephalopathy secondary to respiratory failure secondary to bilateral pneumonia. Patient discharged to [facility] for rehab prior to transitioning home. According to patient, she has not been well since leaving hospital few months ago. Chronic watery diarrhea symptoms without unusual abdominal pain. Intermittent achy headache symptoms attributed by neurology to tension headache as per outpatient note from 2 weeks ago. Few days ago, patient noted dysuria symptoms along with nausea, vomiting and chills. No unusual chest pain, SOB, headache symptoms. IV meropenem administered at the ER. 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 Allergies Allergy/AdvReac Type Severity Reaction Status Date / Time bethanechol Allergy Intermediate RASH, Verified 02/04/24 19:35 "FEELS FUNNY" Cephalosporins Allergy Intermediate RASH, Verified 02/04/24 19:35 DIARRHEA levofloxacin Allergy Intermediate RASH,TURNED Verified 02/04/24 19:35 RED Sulfa (Sulfonamide Allergy Intermediate Generalized Verified 02/04/24 19:35 Antibiotics) Rash ertapenem Allergy Mild RASH Verified 02/04/24 19:35 atropine Allergy Unknown ON [facility] MED Verified 02/04/24 19:35 LIST clindamycin Allergy Unknown Unknown Verified 02/04/24 19:35 dipyridamole Allergy Unknown PERSANTINE--ON Verified 02/04/24 19:35 [facility] MED LIST droperidol Allergy Unknown Unknown Verified 02/04/24 19:35 meperidine [From Demerol] Allergy Unknown ? ALLERGY Verified 02/04/24 19:35 ON [facility] MED LIST promethazine Allergy Unknown UNKNOWN Verified 02/04/24 19:35 tobramycin Allergy Unknown UNKNOWN Verified 02/04/24 19:35 aspirin AdvReac Severe BLEEDING Verified 02/04/24 19:35 doxycycline AdvReac Severe severe Verified 02/04/24 19:35 Diarrhea, nausea metolazone AdvReac Severe ELECTROLYTE Verified 02/04/24 19:35 ISSUES--HYPOKALEMIA bupropion AdvReac Intermediate NERVOUS Verified 02/04/24 19:35 REACTION cephalexin AdvReac Intermediate GI SYMPTOMS Verified 02/04/24 19:35 morphine AdvReac Intermediate NERVOUS Verified 02/04/24 19:35 REACTION TO IT nitrofurantoin AdvReac Intermediate Vomiting Verified 02/04/24 19:35 [From Macrobid] prochlorperazine AdvReac Intermediate NERVOUS Verified 02/04/24 19:35 REACTION tedizolid AdvReac Intermediate GI SYMPTOMS Verified 02/04/24 19:35 venlafaxine [From Effexor] AdvReac Intermediate NERVOUS Verified 02/04/24 19:35 REACTION lamotrigine AdvReac Unknown tremors Verified 02/04/24 19:35 Home Medications Medication Instructions Recorded Confirmed Type denosumab 60 mg/mL subcutaneous 60 mg subcut Q180D #1 mL 07/22/23 02/04/24 Rx syringe (Prolia) albuterol sulfate 90 mcg/actuation 2 inh inhalation Q6H PRN Shortness 12/19/23 02/04/24 Rx breath activated powder inhaler Of Breath Or Wheezing #1 ea calcium carbonate (Calcium 600) 1,200 mg (2 x 600 mg calcium 12/19/23 02/04/24 Rx (1,500 mg)) PO DAILY #60 tabs cetirizine 10 mg tablet 10 mg PO DAILY PRN Allergy 12/19/23 02/04/24 Rx Symptoms #30 tabs cyanocobalamin (vitamin B-12) 1,000 mcg PO DAILY #30 tabs 12/19/23 02/04/24 Rx 1,000 mcg tablet (Vitamin B-12) duloxetine 30 mg capsule,delayed 30 mg PO QAM #30 caps 12/19/23 02/04/24 Rx release fluticasone furoate 200 1 inh inhalation QAM #60 ea 12/19/23 02/04/24 Rx mcg-vilanterol 25 mcg/dose inhalation powder (Breo Ellipta) fluticasone propionate 50 2 spray NA DAILY #16 grams 12/19/23 02/04/24 Rx mcg/actuation nasal spray,suspension ipratropium 0.5 mg-albuterol 3 mg 3 ml inhalation Q4H PRN Shortness 12/19/23 02/04/24 Rx (2.5 mg base)/3 mL nebulization Of Breath Or Wheezing #90 mL soln lamotrigine 25 mg tablet (Lamictal) 25 mg PO QAM #30 tabs 12/19/23 02/04/24 Rx lamotrigine 25 mg tablet (Lamictal) 50 mg (2 x 25 mg) PO HS #60 tabs 12/19/23 02/04/24 Rx levothyroxine 88 mcg tablet 88 mcg PO QAM #30 tabs 12/19/23 02/04/24 Rx pzgnzo-vqwciqcy-zybxogo 4 cap PO TID #120 caps 12/19/23 02/04/24 Rx 24,000-76,000-120,000 unit capsule,delayed rel (Creon) montelukast 10 mg tablet 10 mg PO HS #30 tabs 12/19/23 02/04/24 Rx llbgfbxqunuf-xjodskwp-rsipsi tablet 1 tab PO DAILY #30 tabs 12/19/23 02/04/24 Rx nitroglycerin 0.4 mg sublingual 0.4 mg sublingual DIRECTED PRN 12/19/23 02/04/24 Rx tablet (Nitrostat) Chest Pain #30 tabs omeprazole magnesium 20 mg 20 mg PO BID #30 tabs 12/19/23 02/04/24 Rx tablet,delayed release pregabalin 25 mg capsule 25 mg PO Q8H #90 caps 12/19/23 02/04/24 Rx ropinirole 0.5 mg tablet 0.5 mg PO HS #30 tabs 12/19/23 02/04/24 Rx rosuvastatin 10 mg tablet 10 mg PO QAM #30 tabs 12/19/23 02/04/24 Rx valacyclovir 500 mg tablet 500 mg PO Q48H #60 tabs 12/19/23 02/04/24 Rx calcitriol 0.5 mcg capsule 0.5 mcg PO BID 02/05/24 02/05/24 History Past Med/Surg History Medical History (Updated 02/05/24 @ 04:35 by Austin Cummings MD) Difficulty swallowing "trouble swallowing pills" History of DVT (deep vein thrombosis) remote hx, unknown etiology, Right rotator cuff tear Junctional bradycardia Pulmonary hypertension mild per 07/[address] report Atherosclerosis of both lower extremities Lumbar transverse process fracture Pt reports lower back detioriating - can't lie flat/sleep on a chair Pulmonary nodule seen on imaging study Wrist injury Scar tissue surrounding remote wrist ORIF several years ago resulting in intermittent inflammation per pt Bilateral nephrolithiasis H/O concussion Remote hx "a long time ago" Incisional hernia Abdominal (from multiple surgeries/feeding tube) Sepsis 05/2020 @ [facility], urosepsis 2/2 obstructing renal stone, S/P cysto/stent and ESWL Chronic urinary tract infection recent hospitalization for this at [facility] DC'ed 11/05/23 > pt reports she is still very fatigued Chronic venous insufficiency Port-A-Cath in place right side due to poor vascular access Urinary leakage PUD (peptic ulcer disease) Had feeding tube for 28 years (has been removed for 11 years) Lumbar stenosis Short bowel syndrome Surgical History History of esophageal dilatation History of cystoscopy multiple H/O shoulder surgery RT arthroscopy 05/28/2021: LMA#4 atraumatic x 1 + PNB. Anesthesia postop progress note: "Pt denies SOB at this time. Block is functioning well. Vital signs stable and appropriate. Oxygenating well considering block placement and her comorbidities. Plan to discharge home with IS." S/P right rotator cuff repair S/P ureteral stent placement Status post laser lithotripsy of ureteral calculus History of prior ablation treatment Right LE in January 2020 and left LE 04/18/20 History of partial gastrectomy History of sinus surgery History of tonsillectomy and adenoidectomy History of total abdominal hysterectomy and bilateral salpingo-oophorectomy History of cholecystectomy History of appendectomy History of open reduction and internal fixation (ORIF) procedure left wrist + manipulation (01/2018) and I&D (10/2019) History of joint replacement Rt thumb History of knee replacement procedure of right knee History of esophagogastroduodenoscopy (EGD) History of colonoscopy History of gastrointestinal surgery multiple History of cardiac cath 08/2019 ([facility])- essentially normal coronary arteries angiographically, no stents Family History Mother Family history of diabetes mellitus Sister Family history of diabetes mellitus Family history of breast cancer Father Esophageal cancer Other Family history non-contributory No family history of adverse response to anesthesia Social History Smoking Status: Never smoker Second Hand Exposure: No; Do You Dip or Chew Tobacco: No; Hx Alcohol Use: Yes Alcohol type: beer Hx Substance Use: No Preferred Language: Kuwaiti Communication Ability: Effective Visual Impairment: No Limitations Manager Clinical Pharmacy Required: No Beliefs That Will Affect Care: None marital status: Single Current Living Situation: Personal Care Facility Current Living Situation Comment: apartment at [facility] in [place]/ had aid How many Children do You have: 0 Other Information That Helps Us Care for You: No Feels Safe at Home: Yes Safety Concerns: Feels Safe At This Time Assistive Devices: Denture - Upper, Denture - Lower, Glasses and Walker Review of Systems Review of Systems: As per HPI, all other systems reviewed and negative Physical Exam Physical Exam: GENERAL: Comfortable, eating a sandwich, obese, no respiratory distress SKIN: Pallor, warm HEENT: Bespectacled, pale palpebral conjunctivae, no ptosis, dry buccal mucosa NECK : Supple, no tenderness CHEST : Decreased breath sounds, no tenderness HEART :RRR, systolic murmur ABDOMEN: Some distention, no tenderness EXTREMITIES : Minimal LE swelling, no LE tenderness NEUROLOGIC : Coherent, no facial asymmetry, pleasant, gait and stance not assessed Results & Data Results & Data Vital Signs (Past 12 Hours) Vital Signs Temp Pulse Pulse Resp BP BP Pulse Ox 02/04/24 17:44 71 02/04/24 17:37 73 18 168/87 H 97 02/04/24 15:50 37.1 C 77 18 130/75 95 O2 Del Method 02/04/24 17:44 02/04/24 17:37 Room Air 02/04/24 15:50 Room Air Laboratory Results Laboratory Results WBC 5.48 K/ul (4.8-10.8) 02/04/24 16:23 RBC 4.03 M/uL (4.20-5.40) L 02/04/24 16:23 Hgb 11.9 g/dl (12.0-16.0) L 02/04/24 16:23 Hct 37.1 % (37.0-47.0) 02/04/24 16:23 MCV 92.1 fL (80.0-100.0) 02/04/24 16:23 MCH 29.5 pg (25.0-34.0) 02/04/24 16:23 MCHC 32.1 g/dL (32.0-36.0) 02/04/24 16:23 RDW Std Deviation 63.4 fL (36.4-46.3) H 02/04/24 16:23 RDW Coeff of David 18.6 % (11.5-14.5) H 02/04/24 16:23 Plt Count 203 K/uL (130-400) 02/04/24 16:23 MPV 9.6 fL (9.4-12.4) 02/04/24 16:23 Immature Gran % (Auto) 0.2 % 02/04/24 16:23 Neut % (Auto) 68.9 % 02/04/24 16:23 Lymph % (Auto) 18.1 % 02/04/24 16:23 Meagher % (Auto) 10.4 % 02/04/24 16:23 Eos % (Auto) 1.5 % 02/04/24 16:23 Baso % (Auto) 0.9 % 02/04/24 16:23 Neut # (Auto) 3.78 K/uL (1.40-6.50) 02/04/24 16:23 Lymph # (Auto) 0.99 K/uL (1.20-3.40) L 02/04/24 16:23 Meagher # (Auto) 0.57 K/uL (0.11-0.59) 02/04/24 16:23 Eos # (Auto) 0.08 K/uL (0.00-0.50) 02/04/24 16:23 Baso # (Auto) 0.05 K/uL (0.00-0.20) 02/04/24 16:23 Immature Gran # (Auto) 0.01 K/uL (0.01-0.20) 02/04/24 16:23 Sodium 141 mmol/L (136-145) 02/04/24 16:23 Potassium 3.4 mmol/L (3.5-5.1) L 02/04/24 16:23 Chloride 117 mmol/L (98-107) H 02/04/24 16:23 Carbon Dioxide 17 mmol/L (21-32) L 02/04/24 16:23 Anion Gap 7 (3-11) 02/04/24 16:23 BUN 16 mg/dl (6-23) 02/04/24 16:23 Creatinine 0.91 mg/dl (0.6-1.2) 02/04/24 16:23 Est Cr Clr Drug Dosing Not Reportable 02/04/24 16:23 Est GFR ( Amer) 73.6 ml/min 02/04/24 16:23 Est GFR (Non-Af Amer) 63.5 ml/min 02/04/24 16:23 BUN/Creatinine Ratio 17.6 (10-20) 02/04/24 16:23 Glucose 99 mg/dl (70-99(Fasting)) 02/04/24 16:23 Calcium 8.1 mg/dl (8.6-10.3) L 02/04/24 16:23 Total Bilirubin 0.3 mg/dl (0.2-1.0) 02/04/24 16:23 AST 20 U/L (13-39) 02/04/24 16:23 ALT 15 U/L (7-52) 02/04/24 16:23 Alkaline Phosphatase 55 U/L (34-104) 02/04/24 16:23 Troponin I High Sens 13.9 pg/ml (0-14) 02/04/24 16:23 Total Protein 6.1 gm/dl (6.0-8.3) 02/04/24 16:23 Albumin 3.9 gm/dl (3.4-5.0) 02/04/24 16:23 Globulin 2.2 gm/dl (2.5-4.0) L 02/04/24 16:23 Albumin/Globulin Ratio 1.8 (0.9-2) 02/04/24 16:23 Lipase 9 U/L (11-82) L 02/04/24 16:23 Urine Color Dark Yellow 02/04/24 17:36 Urine Appearance Clear (Clear) 02/04/24 17:36 Urine pH 5.5 (4.5-7.5) 02/04/24 17:36 Ur Specific [place] 1.014 (1.000-1.030) 02/04/24 17:36 Urine Protein 1+ (Negative) H 02/04/24 17:36 Urine Glucose (UA) Negative (Negative) 02/04/24 17:36 Urine Ketones Negative (Negative) 02/04/24 17:36 Urine Blood Negative (Negative) 02/04/24 17:36 Urine Nitrite Positive (Negative) A 02/04/24 17:36 Urine Bilirubin 1+ (Negative) H 02/04/24 17:36 Urine Urobilinogen Negative (Negative) 02/04/24 17:36 Ur Leukocyte Esterase 1+ (Negative) H 02/04/24 17:36 Urine WBC (Auto) 6-10 /hpf (0-5) H 02/04/24 17:36 Urine RBC (Auto) 0-2 /hpf (0-2) 02/04/24 17:36 U Hyaline Cast (Auto) 0-2 /lpf (0-2) 02/04/24 17:36 U Epithel Cells (Auto) 0-2 /hpf (0-2) 02/04/24 17:36 Urine Bacteria (Auto) 4+ (None Seen) H 02/04/24 17:36 Adenovirus (PCR) Not Detected (NotDetected) 02/04/24 18:24 B. pertussis DNA (PCR) Not Detected (NotDetected) 02/04/24 18:24 B.parapertussis DNA PCR Not Detected (NotDetected) 02/04/24 18:24 C. pneumoniae DNA (PCR) Not Detected (NotDetected) 02/04/24 18:24 Coronavirus OC43 (PCR) Not Detected (NotDetected) 02/04/24 18:24 Coronavirus HKU1 (PCR) Not Detected (NotDetected) 02/04/24 18:24 Coronavirus 229E (PCR) Not Detected (NotDetected) 02/04/24 18:24 SARS-CoV-2 (PCR) Not Detected (NotDetected) 02/04/24 18:24 Coronavirus NL63 (PCR) Not Detected (NotDetected) 02/04/24 18:24 Human Metapneumovir PCR Not Detected (NotDetected) 02/04/24 18:24 Influenza Type A (PCR) Not Detected (NotDetected) 02/04/24 18:24 Influenza Type B (PCR) Not Detected (NotDetected) 02/04/24 18:24 M. pneumoniae (PCR) Not Detected (NotDetected) 02/04/24 18:24 Parainfluenza 1 (PCR) Not Detected (NotDetected) 02/04/24 18:24 Parainfluenza 2 (PCR) Not Detected (NotDetected) 02/04/24 18:24 Parainfluenza 3 (PCR) Not Detected (NotDetected) 02/04/24 18:24 Parainfluenza 4 (PCR) Not Detected (NotDetected) 02/04/24 18:24 RSV (PCR) Not Detected (NotDetected) 02/04/24 18:24 Entero/Rhino (PCR) Not Detected (NotDetected) 02/04/24 18:24 Impressions Abdomen/Pelvis CT 02/04/24 18:03 Exam(s): CT ABDOMEN + PELVIS Without Contrast EXAM: CT Abdomen and Pelvis Without Intravenous Contrast CLINICAL HISTORY: Reason for exam: n/v/d, weak, gastric bypass hx. TECHNIQUE: Axial computed tomography images of the abdomen and pelvis without intravenous contrast. CTDI is 21.36 mGy and DLP is 999.33 mGy-cm. Automated exposure control was utilized for the study. A dose lowering technique was utilized adhering to the principles of ALARA. COMPARISON: CT abdomen/pelvis on 12/02/2023 FINDINGS: Lung bases: Lower lung atelectasis and possible chronic interstitial lung changes. Heart: Postsurgical changes of the heart. ABDOMEN: Liver: Mild hepatomegaly. Gallbladder and bile ducts: Prior cholecystectomy. No ductal dilation. Pancreas: Unremarkable. No ductal dilation. Spleen: Unremarkable. No splenomegaly. Adrenals: Unremarkable. No mass. Kidneys and ureters: Atrophy of the right kidney. Nonobstructing bilateral renal stones. No hydronephrosis or ureteral stone. Stomach and bowel: Fluid and gas-filled small bowel loops could represent enteritis or ileus in the appropriate clinical setting. Bowel loops are again noted to be bulging along a diastatic anterior abdominal wall just under the skin surface. Gastric bypass changes. Evaluation of the stomach is limited by slight under distention. PELVIS: Appendix: Appendix is not visualized on this exam. Bladder: Unremarkable. No stones. Reproductive: Prior hysterectomy. ABDOMEN and PELVIS: Intraperitoneal space: Unremarkable. No free air. No significant fluid collection. Bones/joints: Mild degenerative changes of the spine. Chronic mild endplate depressions at L2-3. No acute fracture. No dislocation. Soft tissues: Injection granulomas in the gluteal soft tissues. Vasculature: Phleboliths in the pelvis. No abdominal aortic aneurysm. Lymph nodes: Unremarkable. No enlarged lymph nodes. IMPRESSION: 1. Fluid and gas-filled small bowel loops could represent enteritis or ileus in the appropriate clinical setting. 2. Atrophy of the right kidney. Nonobstructing bilateral renal stones. No hydronephrosis or ureteral stone. 3. Bowel loops are again noted to be bulging along a diastatic anterior abdominal wall just under the skin surface. Electronically signed by: Atif Donald M.D. 02/04/24 19:[address] 02/04/24 18:13 Exam(s): CT HEAD Without Contrast EXAM: CT Head Without Intravenous Contrast CLINICAL HISTORY: Reason for exam: fall, headaches. TECHNIQUE: Axial computed tomography images of the head/brain without intravenous contrast. CTDI is 34.77 mGy and DLP is 546.36 mGy-cm. Automated exposure control was utilized for the study. A dose lowering technique was utilized adhering to the principles of ALARA. COMPARISON: CT head on 11/29/2023 FINDINGS: Brain: No acute infarct or hemorrhage identified. No extra-axial fluid collection. No mass effect or midline shift. Scattered areas of hypoattenuation in the supratentorial white matter likely represent chronic small vessel ischemic changes. Ventricles and sulci: Prominence of the ventricles and sulci is likely secondary to cerebral volume loss. Bones: Normal. No bony lesion or acute fracture. Subcutaneous tissues: Normal. Sinuses: Mucosal thickening partially seen in right and left maxillary sinuses. Hyperostosis of the tidwell of the right maxillary sinus, suggesting chronic sinusitis. Mild mucosal thickening in the ethmoid air cells. Mastoid air cells: Normal. Orbits: Bilateral lens implants. Other: Atherosclerotic calcifications in the intracranial vasculature. IMPRESSION: 1. No acute intracranial abnormality. 2. Mild chronic small vessel ischemic changes and cerebral volume loss. Electronically signed by: Atif Donald M.D. 02/04/24 19:10 PM Diagnostic Findings EKG as per my interpretation : Rate 75, NSR, LAD, LAFB, T wave abnormalities septal leads
[2024-02-04 22:16] LABS: Thyroid Stimulating Hormone 1.239 uIu/ml (0.300-4.500)
[2024-02-04] MEDS: PREGABALIN 25 MG CAP PO SCH (23:32)
[2024-02-04] MEDS: NSS + 20MEQ KCL 20 MEQ/1,000 ML BAG IV ONE (23:32)
[2024-02-05] MEDS: oxyCODONE HCL IR 5 MG TAB (IMMEDIATE RELEASE) PO PRN (04:09)
[2024-02-05] MEDS: ONDANSETRON INJ 2 MG/ML 2 ML VIAL IV PRN (04:10)
[2024-02-05] MEDS: LEVOTHYROXINE SODIUM 88 MCG TABLET PO SCH (05:42)
[2024-02-05 07:07] LABS: Basophils # (auto) 0.04 K/uL (0.00-0.20); Basophils % (auto) 0.8 %; Eosinophils # (auto) 0.08 K/uL (0.00-0.50); Eosinophils % (auto) 1.5 %; Hematocrit (blood only) 35.3 % (37.0-47.0); Hemoglobin 11.3 g/dl (12.0-16.0); Immature Granulocytes # (auto) 0.02 K/uL (0.01-0.20); Immature Granulocytes % (auto) 0.4 %; Lymphocytes # (auto) 0.92 K/uL (1.20-3.40); Lymphocytes % (auto) 17.5 %; Mean Corpuscular Hemoglobin 29.9 pg (25.0-34.0); Mean Corpuscular Volume 93.4 fL (80.0-100.0); Mean Platelet Volume 9.9 fL (9.4-12.4); Monocytes # (auto) 0.59 K/uL (0.11-0.59); Monocytes % (auto) 11.2 %; Neutrophils # (auto) 3.61 K/uL (1.40-6.50); Neutrophils % (auto) 68.6 %; Platelet Count 173 K/uL (130-400); RDW Coefficient of Variation 18.9 % (11.5-14.5); RDW Standard Deviation 64.2 fL (36.4-46.3); Red Blood Count 3.78 M/uL (4.20-5.40); White Blood Count 5.26 K/ul (4.8-10.8)
[2024-02-05 07:34] LABS: BUN Creatinine Ratio 15.9 (10-20); Calcium 7.2 mg/dl (8.6-10.3); Creatinine Clr Calc Pharmacy 60.3 ml/min; Est GFR (African American) 101.5 ml/min; Est GFR (Non-African American) 87.6 ml/min; Potassium 4.3 mmol/L (3.5-5.1)
[2024-02-05] MEDS ORDERED: CALCITRIOL 0.25 MCG CAPSULE PO SCH (09:00)
[2024-02-05] MEDS: CYANOCOBALAMIN (B-12) 500 MCG TABLET PO SCH (09:23)
[2024-02-05] MEDS: PANTOprazole 40 MG TAB PO SCH (09:23)
[2024-02-05] MEDS: CEROVITE ADV FORMULA TAB PO SCH (09:23)
[2024-02-05] MEDS: CALCITRIOL 0.25 MCG CAPSULE PO SCH (09:23)
[2024-02-05] MEDS: ROSUVASTATIN CALCIUM 10 MG TAB PO SCH (09:23)
[2024-02-05] MEDS: PANCREAZE (LIPASE 10,500U) CAP PO SCH (09:23)
[2024-02-05] MEDS: CALCIUM CARBONATE 1250MG TAB PO SCH (09:24)
[2024-02-05] MEDS: DULoxetine HCL 30 MG CAP PO SCH (09:24)
[2024-02-05] MEDS: CETIRIZINE HCL 10 MG TABLET PO PRN (09:24)
[2024-02-05] MEDS: lamoTRIgine 25 MG TAB PO SCH ×2 (09:24→22:24)
[2024-02-05] MEDS: ENOXAPARIN INJ 40 MG/0.4 ML SYR SQ SCH (09:25)
[2024-02-05] MEDS: FLUTICASONE PROPIONATE NA SPR 16 GM BTL SCH (09:25)
[2024-02-05] MEDS: MEROPENEM 500 MG in SYRINGE 0 ML IV SCH (12:18)
[2024-02-05] MEDS: PROCHLORPERAZINE 5 MG in SYRINGE 4 ML IV ONE (16:07)
[2024-02-05] MEDS: LACTATED RINGER'S 1,000 ML IV ONE (16:54)
--- NOTE | 2024-02-05 16:54 | Hospitalist Progress Note ---
Date of Service February 05, 2024 Assessment & Plan (1) Complicated UTI (urinary tract infection): Plan: Complicated urinary tract infection H/O recurrent UTIs with ESBL, Pseudomonas Urine culture growing gram-negative bacilli CT as below Continue meropenem for now Suspected enteritis/ileus Chronic diarrhea possible IBS as per GI evaluation from recent admission --CT ABD:Fluid and gas-filled small bowel loops could represent enteritis or ileus in the appropriate clinical setting. Atrophy of the right kidney. Nonobstructing bilateral renal stones. No hydronephrosis or ureteral stone. Bowel loops are again noted to be bulging along a diastatic anterior abdominal wall just under the skin surface. -- Will obtain stool studies if develops diarrhea IV antibiotics as above Continue IV fluids Antiemetics as needed Will repeat KUB tomorrow Consider GI evaluation if needed Chronic diastolic heart failure Last EF 55 to 60%, TTE 2022 Clinically looks dry Monitor volume status Not on diuretics at home Monitor Sinus node dysfunction S/P pacemaker Asthma/COPD/ILD, LARRY Pulmonary hypertension Pulmonary status seem to be at baseline Continue home medications CKD II Renal function at baseline Monitor renal function Hypokalemia Replete electrolytes as needed Monitor Other chronic conditions: H/O Gastric bypass--- continue home meds Hypothyroidism--continue levothyroxine Chronic anemia--stable H/O Pancreatic insufficiency/malabsorption--continue home meds Mood/anxiety disorder--mood at baseline, continue home meds Chronic pain/neuropathy Chronic headache, possible tension headaches as per neurology H/O MRSA Functional disability given recurrent admissions/compliance issues--PT OT prior to discharge DVT Px: Lovenox SQ Code Status Full code Admission and Anticipated Discharge Date Admission Date: February 04, 2024 Subjective Patient is seen and examined at bedside States having nausea associated with some abdominal pain Denies any chest pain, dyspnea, vomiting, diarrhea No other complaints Review of Systems Review of Systems: All systems reviewed & are unremarkable except as noted in Subjective Physical Exam Physical Exam: Physical Exam: Vitals signs as noted above General Appearance:Obese, no apparent distress Head: normocephalic, Atraumatic Eyes: normal inspection, EOMI Neck: supple, Trachea midline Respiratory/Chest: Normal breath sounds, CTA, R port, No accessory muscle use Cardiovascular: S1, S2, No murmur Abdomen/GI:Soft, mild epigastric tender, Bowel sounds present Extremities/Musculoskeletal:normal inspection, no edema Neurologic/Psych:AAOX3, grossly no focal neurological deficits Skin: normal color, warm Results & Data Results & Data Vital Signs (Past 12 Hours) Vital Signs Temp Pulse Pulse Resp BP Pulse Ox O2 Del Method 02/05/24 15:16 36.7 C 64 16 117/71 93 Room Air 02/05/24 08:00 Room Air 02/05/24 07:52 36.8 C 68 15 127/78 93 Room Air Laboratory Results Short CBC 02/04/24 02/05/24 Range/Units 16:23 06:33 WBC 5.48 5.26 (4.8-10.8) K/ul Hgb 11.9 L 11.3 L (12.0-16.0) g/dl Hct 37.1 35.3 L (37.0-47.0) % Plt Count 203 173 (130-400) K/uL BMP 02/04/24 02/05/24 16:23 06:33 Sodium 141 144 Potassium 3.4 L 4.3 D Chloride 117 H 121 H Carbon Dioxide 17 L 21 BUN 16 11 Creatinine 0.91 0.69 Glucose 99 91 Calcium 8.1 L 7.2 L Liver Function 02/04/24 Range/Units 16:23 Total Bilirubin 0.3 (0.2-1.0) mg/dl AST 20 (13-39) U/L ALT 15 (7-52) U/L Alkaline Phosphatase 55 (34-104) U/L Albumin 3.9 (3.4-5.0) gm/dl Urine 02/04/24 Range/Units 17:36 Urine Color Dark Yellow Urine Appearance Clear (Clear) Urine pH 5.5 (4.5-7.5) Ur Specific [place] 1.014 (1.000-1.030) Urine Protein 1+ H (Negative) Urine Glucose (UA) Negative (Negative)
[2024-02-05] MEDS: rOPINIRole HCL 0.25 MG TABLET PO SCH (22:24)
[2024-02-05] MEDS: MONTELUKAST SODIUM 10 MG TABLET PO SCH (22:24)
[2024-02-06 07:10] LABS: Hematocrit (blood only) 34.8 % (37.0-47.0); Hemoglobin 11.1 g/dl (12.0-16.0); Mean Corpuscular Hemoglobin 30.2 pg (25.0-34.0); Mean Corpuscular Hgb Conc 31.9 g/dL (32.0-36.0); Mean Corpuscular Volume 94.6 fL (80.0-100.0); Platelet Count 170 K/uL (130-400); RDW Coefficient of Variation 18.9 % (11.5-14.5); RDW Standard Deviation 66.3 fL (36.4-46.3); Red Blood Count 3.68 M/uL (4.20-5.40); White Blood Count 4.67 K/ul (4.8-10.8)
[2024-02-06 07:18] LABS: Calcium 7.3 mg/dl (8.6-10.3); Creatinine Clr Calc Pharmacy 59.4 ml/min; Est GFR (Non-African American) 87.2 ml/min; Magnesium 1.7 mg/dl (1.7-2.4); Potassium 4.3 mmol/L (3.5-5.1)
--- NOTE | 2024-02-06 09:42 | XRay Report ---
KUB CLINICAL HISTORY: Ileus. FINDINGS: 3 AP, portable, supine abdominal radiographs are compared to study dated 12/10/2023 and corre lated with abdominal CT dated 02/04/2024. There is no radiographic evidence of high-grade bowel obstruc tion. There is mild gaseous distention of the small bowel and colon. Suture material and surgical cli ps project over the upper abdomen. There are also numerous surgical clips in the pelvis. Bilateral ne phrolithiasis is observed. Numerous phleboliths are seen in the pelvis. The skeletal structures are o steopenic and appear intact. There is mild to moderate lumbosacral spondylosis. Calcified granulomas are noted in the gluteal tissues. IMPRESSION: 1. There is mild gaseous distention of the small bowel and colon. This is nonspecific and could repre sent ileus as clinically suspected. 2. There is no radiographic evidence of high-grade obstruction. 3. Bilateral nephrolithiasis. Electronically signed by: Chinedu Hicks M.D. 02/06/2024 9:40 AM
[2024-02-06] MEDS: POLYETHYLENE (MIRALAX) 17 GM PACK PO SCH (11:33)
[2024-02-06] MEDS: DOCUSATE SODIUM 100 MG CAP PO SCH (11:33)
[2024-02-06] MEDS: PROCHLORPERAZINE 5 MG in SYRINGE 4 ML IV ONE (11:34)
[2024-02-06] MEDS ORDERED: bisacodyL 5 MG TABEC PO PRN (16:29)
--- NOTE | 2024-02-06 16:32 | Hospitalist Progress Note ---
Date of Service February 06, 2024 Assessment & Plan (1) Complicated UTI (urinary tract infection): Plan: Complicated urinary tract infection H/O recurrent UTIs with ESBL, Pseudomonas Urine culture grew ESBL E. coli CT as below Continue meropenem Suspected enteritis/ileus Chronic diarrhea possible IBS as per GI evaluation from recent admission --CT ABD:Fluid and gas-filled small bowel loops could represent enteritis or ileus in the appropriate clinical setting. Atrophy of the right kidney. Nonobstructing bilateral renal stones. No hydronephrosis or ureteral stone. Bowel loops are again noted to be bulging along a diastatic anterior abdominal wall just under the skin surface. -- Will obtain stool studies if develops diarrhea IV antibiotics as above Received IV fluids Antiemetics as needed KUB today suggestive of possible ileus Continue bowel regimen Encouraged to ambulate Chronic diastolic heart failure Last EF 55 to 60%, TTE 2022 Clinically looks dry Monitor volume status Not on diuretics at home Monitor Sinus node dysfunction S/P pacemaker Asthma/COPD/ILD, LARRY Pulmonary hypertension Pulmonary status seem to be at baseline Continue home medications CKD II Renal function at baseline Monitor renal function Hypokalemia Replete electrolytes as needed Monitor Other chronic conditions: H/O Gastric bypass--- continue home meds Hypothyroidism--continue levothyroxine Chronic anemia--stable H/O Pancreatic insufficiency/malabsorption--continue home meds Mood/anxiety disorder--mood at baseline, continue home meds Chronic pain/neuropathy Chronic headache, possible tension headaches as per neurology H/O MRSA Functional disability given recurrent admissions/compliance issues--PT OT prior to discharge DVT Px: Lovenox SQ Code Status Full code Admission and Anticipated Discharge Date Admission Date: February 04, 2024 Subjective Patient is seen and examined at bedside Reports nausea, abdominal discomfort No vomiting today Also reports constipation Chronic headache Prefers diet to be advanced Denies any chest pain, dyspnea, vomiting, diarrhea Review of Systems Review of Systems: All systems reviewed & are unremarkable except as noted in Subjective Physical Exam Physical Exam: Physical Exam: Vitals signs as noted above General Appearance:Obese, no apparent distress Head: normocephalic, Atraumatic Eyes: normal inspection, EOMI Neck: supple, Trachea midline Respiratory/Chest: Normal breath sounds, CTA, R port, No accessory muscle use Cardiovascular: S1, S2, No murmur Abdomen/GI:Soft, mild epigastric tender, Bowel sounds present Extremities/Musculoskeletal:normal inspection, no edema Neurologic/Psych:AAOX3, grossly no focal neurological deficits Skin: normal color, warm Results & Data Results & Data Vital Signs (Past 12 Hours) Vital Signs Temp Pulse Resp BP Pulse Ox O2 Del Method 02/06/24 15:41 36.6 C 75 18 107/67 95 Room Air 02/06/24 08:00 Room Air 02/06/24 07:48 36.6 C 62 18 101/65 94 Room Air Laboratory Results Short CBC 02/06/24 Range/Units 06:41 WBC 4.67 L (4.8-10.8) K/ul Hgb 11.1 L (12.0-16.0) g/dl Hct 34.8 L (37.0-47.0) % Plt Count 170 (130-400) K/uL BMP 02/06/24 06:41 Sodium 143 Potassium 4.3 Chloride 116 H Carbon Dioxide 24 BUN 7 Creatinine 0.70 Glucose 92 Calcium 7.3 L
[2024-02-07 06:52] LABS: BUN Creatinine Ratio 12.5 (10-20); Calcium 7.1 mg/dl (8.6-10.3); Est GFR (Non-African American) 74.2 ml/min
[2024-02-07 06:58] LABS: Hematocrit (blood only) 34.1 % (37.0-47.0); Hemoglobin 10.9 g/dl (12.0-16.0); Mean Corpuscular Hemoglobin 30.1 pg (25.0-34.0); Mean Corpuscular Volume 94.2 fL (80.0-100.0); Mean Platelet Volume 9.8 fL (9.4-12.4); Platelet Count 172 K/uL (130-400); RDW Coefficient of Variation 18.6 % (11.5-14.5); RDW Standard Deviation 64.6 fL (36.4-46.3); Red Blood Count 3.62 M/uL (4.20-5.40); White Blood Count 4.64 K/ul (4.8-10.8)
[2024-02-07] MEDS: HEPARIN 100 UNIT/ML 5ML FLUSH FLUSH PRN (10:14)
[2024-02-07] MEDS: PROCHLORPERAZINE 5 MG in SYRINGE 4 ML IV ONE (14:56)
--- NOTE | 2024-02-07 15:43 | CT Scan Report ---
ABDOMEN AND PELVIS CT WITHOUT CONTRAST CT DOSE: 1086.99 mGy.cm HISTORY: Nausea, vomiting, abd pain TECHNIQUE: Multiaxial CT images of the abdomen and pelvis were performed without contrast. A dose lo wering technique was utilized adhering to the principles of ALARA. COMPARISON STUDY: Abdomen and pelvis CT 02/04/2024. FINDINGS: Chronic interstitial thickening and scattered linear scarlike densities persist within the lung bases. There is mild bronchiectasis again noted the right lung base. No pneumoperitoneum. No pne umatosis. No acute fractures. The heart remains mildly enlarged. The unenhanced liver, spleen, and ad renal glands unremarkable. The pancreas remains atrophic prior cholecystectomy. Stable dilatation of the common bile duct. Surgical clips within the epigastric region with postoperative changes consiste nt with prior distal gastrectomy. Marked diastases with severe thinning of the anterior abdominal wal l again noted. There is a new small left mid abdominal wall hernia best seen on image 199 containing a short segment of small bowel. Proximal to this herniated bowel, the proximal jejunum and duodenum o f the afferent loop are mildly distended and fluid-filled. Therefore, this raises the possibility of a small bowel obstruction secondary to this bowel containing hernia. There is atrophic right kidney a gain noted. Bilateral nephrolithiasis, unchanged. No hydronephrosis. No retroperitoneal lymphadenopat hy. Normal caliber abdominal aorta. No pelvic lymphadenopathy or pelvic free fluid. Multiple surgical clips seen within the pelvis. The bladder is unremarkable. Prior hysterectomy. Moderate fecal retent ion again noted. IMPRESSION: 1. There is a new small left mid abdominal wall hernia containing a short segment of small bowel. Pro ximal to this herniated bowel, the proximal jejunum and duodenum of the afferent loop are mildly dist ended and fluid-filled. Therefore, this is concerning for small bowel obstruction secondary to this b owel containing hernia. 2. Bilateral nephrolithiasis. No ureteral stones. No hydronephrosis. 3. Postoperative changes as described above. ACT 112: Negative or not required by law. Electronically signed by: Noel Crenshaw M.D. 02/07/2024 3:41 PM
[2024-02-07] MEDS: PANCREAZE (LIPASE 16,800U) CAP PO SCH (16:28)
--- NOTE | 2024-02-07 17:16 | Hospitalist Progress Note ---
Date of Service February 07, 2024 Assessment & Plan (1) Complicated UTI (urinary tract infection): Plan: Complicated urinary tract infection H/O recurrent UTIs with ESBL, Pseudomonas Urine culture grew ESBL E. coli CT as below Continue meropenem Dysuria improving Small bowel obstruction Chronic diarrhea possible IBS as per GI evaluation from recent admission --CT ABD:Fluid and gas-filled small bowel loops could represent enteritis or ileus in the appropriate clinical setting. Atrophy of the right kidney. Nonobstructing bilateral renal stones. No hydronephrosis or ureteral stone. Bowel loops are again noted to be bulging along a diastatic anterior abdominal wall just under the skin surface. --Repeat CT abdomen:There is a new small left mid abdominal wall hernia containing a short segment of small bowel. Proximal to this herniated bowel, the proximal jejunum and duodenum of the afferent loop are mildly distended and fluid-filled. Therefore, this is concerning for small bowel obstruction secondary to this bowel containing hernia. Bilateral nephrolithiasis. No ureteral stones. No hydronephrosis. -- Will obtain stool studies if develops diarrhea Antiemetics as needed Consulted surgery for input N.p.o. for now Gentle IV fluids Chronic diastolic heart failure Last EF 55 to 60%, TTE 2022 Clinically looks dry Monitor volume status Not on diuretics at home Monitor Sinus node dysfunction S/P pacemaker Asthma/COPD/ILD, LARRY Pulmonary hypertension Pulmonary status seem to be at baseline Continue home medications CKD II Renal function at baseline Monitor renal function Hypokalemia Replete electrolytes as needed Monitor Other chronic conditions: H/O Gastric bypass--- continue home meds Hypothyroidism--continue levothyroxine Chronic anemia--stable H/O Pancreatic insufficiency/malabsorption--continue home meds Mood/anxiety disorder--mood at baseline, continue home meds Chronic pain/neuropathy Chronic headache, possible tension headaches as per neurology H/O MRSA Functional disability given recurrent admissions/compliance issues--PT OT prior to discharge DVT Px: Lovenox SQ--Hold given possible procedure SCDs for now Code Status Full code Admission and Anticipated Discharge Date Admission Date: February 04, 2024 Subjective Patient is seen and examined at bedside Dysuria improving per patient Continues to have dry heaves this morning and had an episode of emesis this afternoon per RN Denies any chest pain, dyspnea, dizziness Given persistent symptoms, will obtain CT abdomen Review of Systems Review of Systems: All systems reviewed & are unremarkable except as noted in Subjective Physical Exam Physical Exam: Physical Exam: Vitals signs as noted above General Appearance:Obese, no apparent distress Head: normocephalic, Atraumatic Eyes: normal inspection, EOMI Neck: supple, Trachea midline Respiratory/Chest: Normal breath sounds, CTA, R port, No accessory muscle use Cardiovascular: S1, S2, No murmur Abdomen/GI:Soft, mild epigastric tender, Bowel sounds present Extremities/Musculoskeletal:normal inspection, no edema Neurologic/Psych:AAOX3, grossly no focal neurological deficits Skin: normal color, warm Results & Data Results & Data Vital Signs (Past 12 Hours) Vital Signs Temp Pulse Resp BP Pulse Ox O2 Del Method 02/07/24 15:41 36.7 C 72 18 110/71 93 Room Air 02/07/24 09:53 Room Air 02/07/24 07:16 36.7 C 71 18 115/55 L 95 Room Air Laboratory Results Short CBC 02/07/24 Range/Units 06:13 WBC 4.64 L (4.8-10.8) K/ul Hgb 10.9 L (12.0-16.0) g/dl Hct 34.1 L (37.0-47.0) % Plt Count 172 (130-400) K/uL BMP 02/07/24 06:13 Sodium 142 Potassium 4.0 Chloride 112 H Carbon Dioxide 27 BUN 10 Creatinine 0.80 Glucose 99 Calcium 7.1 L
[2024-02-07] MEDS: bisacodyL 10 MG SUPP PR ONE (17:47)
[2024-02-07] MEDS: SODIUM CHLORIDE 0.9% 1,000 ML IV SCH (17:54)
--- NOTE | 2024-02-07 19:26 | Surgery Consultation ---
Date of Consultation February 07, 2024 Assessment & Plan (1) Small bowel obstruction: The patient has been admitted on the hospital service. From surgical perspective we recommend the following: Implement n.p.o. status Provide IV fluid for hydration Follow serial labs Follow serial abdominal exams At the present time the patient is nontoxic-appearing. At the time of my exam she was resting comfortably in bed and not appear to be in any significant pain or distress.She is noted to be normotensive without tachycardia or fever. She also does not exhibit any leukocytosis or have acute kidney injury. I feel we can hold on placing NG tube as the patient is not having any current emesis but this modality may need to be reconsidered if emesis ensues As noted in history of present illness this patient has had multiple prior abdominal surgeries. Also upon reviewing her CT scan the patient appears to have severe diastases recti. With these factors in mind we would like to avoid operative intervention at this time as any surgical intervention would be very complex and risky undertaking. Will continue to follow along with the patient was hospitalized with additional recommendations which will be based on her clinical course as it unfolds History of Present Illness Reason for Consultation: Small bowel obstruction Attending Physician: Aubrey Chicas MD History of Present Illness This is a 73-year-old female who has been admitted to [facility] since 02/04/2024. Patient notes that prior to admission she presented to the emergency department due to worsening nausea and nonbloody emesis as well as diarrhea. She notes that she has been having such symptomatology since she was previously admitted to [facility] in December of this year but has gotten somewhat worse. In addition the patient reports some dysuria. At the time of presentation the patient did undergo a CT scan of the abdomen and pelvis which showed the patient had fluid and gas-filled small bowel loops that were felt to represent an ileus or an enteritis. She also underwent a CT scan of the head that showed no acute intracranial abnormalities. Since admission the patient notes that she continues to have some loose bowel movements but over the past 12 to 24 hours the patient has been having some persistent dry heaving. She notes that she is not vomiting any blood but is more bilious in nature. Because of the symptomatology the patient has had additional abdominal imaging performed including a KUB on 02/06/2024 that showed gaseous distention of the small bowel and colon again felt to represent an ileus. She ultimately had a repeat CT scan of the abdomen pelvis today which showed a new small left mid abdominal wall hernia containing a short segment of small bowel which was concerning for small bowel obstruction. Patient was also noted to have marked diastases and severe thinning of the anterior abdominal wall. Labs today include a CBC were white blood cell count is 4.6. Her hemoglobin and hematocrit are 10.9 and 34.1. Platelet count is normal. Chemistry profile showed sodium and potassium as well as the BUN and creatinine are normal. I asked the patient about her nausea and vomiting and the patient says that although she is having some dry heaves and some emesis of bilious material. She does note that her most recent bowel movement was about 3 days ago. She said she did pass a small amount of flatus this morning. Currently she notes that she has some tenderness to her abdominal on the left side just lateral to her umbilicus. She notes that the pain does not radiate and is worse with palpation. Patient notes that she has a history of severe peptic ulcer disease and has had numerous surgical procedures including a partial colectomy, gastric resection, cholecystectomy, hysterectomy, appendectomy, and partial small bowel resection. Patient notes that the surgeries were done in [facility] and she cannot provide any additional details but she did state that she no longer follows with the surgeons who perform these procedures. Since admission to the hospital the patient has been treated for complicated urinary tract infection which has grown resistant E. coli. The patient is receiving meropenem for this problem. At the time of my interview the patient was resting comfortably in bed and she was no distress. Allergies Allergy/AdvReac Type Severity Reaction Status Date / Time bethanechol Allergy Intermediate RASH, Verified 02/04/24 19:35 "FEELS FUNNY" Cephalosporins Allergy Intermediate RASH, Verified 02/04/24 19:35 DIARRHEA levofloxacin Allergy Intermediate RASH,TURNED Verified 02/04/24 19:35 RED Sulfa (Sulfonamide Allergy Intermediate Generalized Verified 02/04/24 19:35 Antibiotics) Rash ertapenem Allergy Mild RASH Verified 02/04/24 19:35 atropine Allergy Unknown ON [facility] MED Verified 02/04/24 19:35 LIST clindamycin Allergy Unknown Unknown Verified 02/04/24 19:35 dipyridamole Allergy Unknown PERSANTINE--ON Verified 02/04/24 19:35 [facility]G MED LIST droperidol Allergy Unknown Unknown Verified 02/04/24 19:35 meperidine [From Demerol] Allergy Unknown ? ALLERGY Verified 02/04/24 19:35 ON [facility] MED LIST promethazine Allergy Unknown UNKNOWN Verified 02/04/24 19:35 tobramycin Allergy Unknown UNKNOWN Verified 02/04/24 19:35 aspirin AdvReac Severe BLEEDING Verified 02/04/24 19:35 doxycycline AdvReac Severe severe Verified 02/04/24 19:35 Diarrhea, nausea metolazone AdvReac Severe ELECTROLYTE Verified 02/04/24 19:35 ISSUES--HYPOKALEMIA bupropion AdvReac Intermediate NERVOUS Verified 02/04/24 19:35 REACTION cephalexin AdvReac Intermediate GI SYMPTOMS Verified 02/04/24 19:35 morphine AdvReac Intermediate NERVOUS Verified 02/04/24 19:35 REACTION TO IT nitrofurantoin AdvReac Intermediate Vomiting Verified 02/04/24 19:35 [From Macrobid] prochlorperazine AdvReac Intermediate NERVOUS Verified 02/04/24 19:35 REACTION tedizolid AdvReac Intermediate GI SYMPTOMS Verified 02/04/24 19:35 venlafaxine [From Effexor] AdvReac Intermediate NERVOUS Verified 02/04/24 19:35 REACTION lamotrigine AdvReac Unknown tremors Verified 02/04/24 19:35 Home Medications Medication Instructions Recorded Confirmed Type denosumab 60 mg/mL subcutaneous 60 mg subcut Q180D #1 mL 07/22/23 02/04/24 Rx syringe (Prolia) albuterol sulfate 90 mcg/actuation 2 inh inhalation Q6H PRN Shortness 12/19/23 02/04/24 Rx breath activated powder inhaler Of Breath Or Wheezing #1 ea calcium carbonate (Calcium 600) 1,200 mg (2 x 600 mg calcium 12/19/23 02/04/24 Rx (1,500 mg)) PO DAILY #60 tabs cetirizine 10 mg tablet 10 mg PO DAILY PRN Allergy 12/19/23 02/04/24 Rx Symptoms #30 tabs cyanocobalamin (vitamin B-12) 1,000 mcg PO DAILY #30 tabs 12/19/23 02/04/24 Rx 1,000 mcg tablet (Vitamin B-12) duloxetine 30 mg capsule,delayed 30 mg PO QAM #30 caps 12/19/23 02/04/24 Rx release fluticasone furoate 200 1 inh inhalation QAM #60 ea 12/19/23 02/04/24 Rx mcg-vilanterol 25 mcg/dose inhalation powder (Breo Ellipta) fluticasone propionate 50 2 spray NA DAILY #16 grams 12/19/23 02/04/24 Rx mcg/actuation nasal spray,suspension ipratropium 0.5 mg-albuterol 3 mg 3 ml inhalation Q4H PRN Shortness 12/19/23 02/04/24 Rx (2.5 mg base)/3 mL nebulization Of Breath Or Wheezing #90 mL soln lamotrigine 25 mg tablet (Lamictal) 25 mg PO QAM #30 tabs 12/19/23 02/04/24 Rx lamotrigine 25 mg tablet (Lamictal) 50 mg (2 x 25 mg) PO HS #60 tabs 12/19/23 02/04/24 Rx levothyroxine 88 mcg tablet 88 mcg PO QAM #30 tabs 12/19/23 02/04/24 Rx gedppt-uvaxagbw-sanmsmi 4 cap PO TID #120 caps 12/19/23 02/04/24 Rx 24,000-76,000-120,000 unit capsule,delayed rel (Creon) montelukast 10 mg tablet 10 mg PO HS #30 tabs 12/19/23 02/04/24 Rx gygczyfobjyt-uwzibcpr-lexlvj tablet 1 tab PO DAILY #30 tabs 12/19/23 02/04/24 Rx nitroglycerin 0.4 mg sublingual 0.4 mg sublingual DIRECTED PRN 12/19/23 02/04/24 Rx tablet (Nitrostat) Chest Pain #30 tabs omeprazole magnesium 20 mg 20 mg PO BID #30 tabs 12/19/23 02/04/24 Rx tablet,delayed release pregabalin 25 mg capsule 25 mg PO Q8H #90 caps 12/19/23 02/04/24 Rx ropinirole 0.5 mg tablet 0.5 mg PO HS #30 tabs 12/19/23 02/04/24 Rx rosuvastatin 10 mg tablet 10 mg PO QAM #30 tabs 12/19/23 02/04/24 Rx valacyclovir 500 mg tablet 500 mg PO Q48H #60 tabs 12/19/23 02/04/24 Rx calcitriol 0.5 mcg capsule 0.5 mcg PO BID 02/05/24 02/05/24 History Patient History Medical History (Updated 02/07/24 @ 19:22 by Edward Gonzales PA-C) Difficulty swallowing "trouble swallowing pills" History of DVT (deep vein thrombosis) remote hx, unknown etiology, Right rotator cuff tear Junctional bradycardia Pulmonary hypertension mild per 07/[address] report Atherosclerosis of both lower extremities Lumbar transverse process fracture Pt reports lower back detioriating - can't lie flat/sleep on a chair Pulmonary nodule seen on imaging study Wrist injury Scar tissue surrounding remote wrist ORIF several years ago resulting in intermittent inflammation per pt Bilateral nephrolithiasis H/O concussion Remote hx "a long time ago" Incisional hernia Abdominal (from multiple surgeries/feeding tube) Sepsis 05/2020 @ [facility], urosepsis 2/2 obstructing renal stone, S/P cysto/stent and ESWL Chronic urinary tract infection recent hospitalization for this at [facility] DC'ed 11/05/23 > pt reports she is still very fatigued Chronic venous insufficiency Port-A-Cath in place right side due to poor vascular access Urinary leakage PUD (peptic ulcer disease) Had feeding tube for 28 years (has been removed for 11 years) Lumbar stenosis Short bowel syndrome Surgical History History of esophageal dilatation History of cystoscopy multiple H/O shoulder surgery RT arthroscopy 05/28/2021: LMA#4 atraumatic x 1 + PNB. Anesthesia postop progress note: "Pt denies SOB at this time. Block is functioning well. Vital signs stable and appropriate. Oxygenating well considering block placement and her comorbidities. Plan to discharge home with IS." S/P right rotator cuff repair S/P ureteral stent placement Status post laser lithotripsy of ureteral calculus History of prior ablation treatment Right LE in January 2020 and left LE 04/18/20 History of partial gastrectomy History of sinus surgery History of tonsillectomy and adenoidectomy History of total abdominal hysterectomy and bilateral salpingo-oophorectomy History of cholecystectomy History of appendectomy History of open reduction and internal fixation (ORIF) procedure left wrist + manipulation (01/2018) and I&D (10/2019) History of joint replacement Rt thumb History of knee replacement procedure of right knee History of esophagogastroduodenoscopy (EGD) History of colonoscopy History of gastrointestinal surgery multiple History of cardiac cath 08/2019 ([facility])- essentially normal coronary arteries angiographically, no stents Family History Mother Family history of diabetes mellitus Sister Family history of diabetes mellitus Family history of breast cancer Father Esophageal cancer Other Family history non-contributory No family history of adverse response to anesthesia Social History Smoking Status: Never smoker Second Hand Exposure: No; Do You Dip or Chew Tobacco: No; Hx Alcohol Use: Yes Alcohol type: beer Hx Substance Use: No Preferred Language: Romanian Communication Ability: Effective Visual Impairment: No Limitations [employer] Required: No Beliefs That Will Affect Care: None marital status: Single Current Living Situation: Personal Care Facility Current Living Situation Comment: apartment at [facility] in [place]/ had aid How many Children do You have: 0 Other Information That Helps Us Care for You: No Feels Safe at Home: Yes Safety Concerns: Feels Safe At This Time Assistive Devices: Walker Review of Systems Constitutional: no fever and no chills Eyes: + corrective lenses Ear, Nose, Mouth, Throat: no ear pain Respiratory: no cough Cardiovascular: no chest pain Gastrointestinal: as per Subjective / HPI Genitourinary: no dysuria Musculoskeletal: no back pain Integumentary: no rash Neurologic: no localized weakness Physical Exam Constitutional: WD/WN, vitals as above Eyes: Wears glasses ENMT: Ears: no hearing impairment and no external ear abnormality Mouth: no oropharynx abnormality Respiratory: normal respiratory effort; no respiratory distress and no labored breathing Cardiovascular: Rate/Rhythm: regular rate and regular rhythm Gastrointestinal (Abdomen): Patient's abdomen is rotund. Minimal distention is noted. The patient had a midline surgical incision that was intact. With palpation of her abdomen she did not have any rebound tenderness or guarding but she did have tenderness to palpation to the left of midline in the center of her abdomen. I cannot palpate any reducible hernia. The patient's abdominal wall appeared to be very thin consistent with diastases noted on CT scan Skin: no rashes Neurologic: moves all extremities Psychiatric: A+Ox3, euthymic affect Results & Data Vital Signs (Past 12 Hours) Vital Signs Temp Pulse Resp BP Pulse Ox O2 Del Method 02/07/24 15:41 36.7 C 72 18 110/71 93 Room Air 02/07/24 09:53 Room Air PG Care Time/CCT Total # of Minutes Spent Total Time Spent with Patient: Total time spent is greater than 50% in coordination of care (as documented) at patient's floor/unit and/or counseling patient: Coding Level of Care Code 13688 INT INP/OBS CARE 3/75MIN Diagnoses Small bowel obstruction K56.609
--- NOTE | 2024-02-07 21:31 | Electrocardiogram Report ---
Test Reason : Blood Pressure : / mmHG Vent. Rate : 075 BPM Atrial Rate : 075 BPM P-R Int : 200 ms QRS Dur : 098 ms QT Int : 406 ms P-R-T Axes : 067 -12 071 degrees QTc Int : 453 ms Normal sinus rhythm Normal ECG When compared with ECG of 29-NOV-2023 19:36, No significant change Confirmed by Srikanth Wagner ([id number]) on 02/07/2024 9:31:02 PM Referred By: REFERRED SELF Confirmed By:Srikanth Wagner
[2024-02-07] MEDS: oxyCODONE HCL IR 5 MG TAB (IMMEDIATE RELEASE) PO PRN (22:09)
[2024-02-07] MEDS: PANTOprazole 40 MG in SYRINGE 0 ML IV SCH (22:10)
[2024-02-08 00:12] LABS: Adenovirus F 40/41 PCR Not Detected (NotDetected); Astrovirus PCR Not Detected (NotDetected); Campylobacter PCR Not Detected (NotDetected); Cryptosporidium PCR Not Detected (NotDetected); Cyclospora cayetanensis PCR Not Detected (NotDetected); Entamoeba histolytica PCR Not Detected (NotDetected); Enteroaggregative E.coli(EAEC) Not Detected (NotDetected); Enteropathogenic E.coli (EPEC) Not Detected (NotDetected); Enterotoxigenic E.coli (ETEC) Not Detected (NotDetected); Giardia lamblia PCR Not Detected (NotDetected); Norovirus GI/GII PCR Not Detected (NotDetected); Plesiomonas shigelloides PCR Not Detected (NotDetected); Rotavirus A PCR Not Detected (NotDetected); Salmonella PCR Not Detected (NotDetected); Sapovirus PCR Not Detected (NotDetected); Shiga-like Toxin E.coli (STEC) Not Detected (NotDetected); Shigella/Enteroinvasive E.coli Not Detected (NotDetected); Vibrio cholerae PCR Not Detected (NotDetected); Vibrio species PCR Not Detected (NotDetected); Yersinia enterocolitica PCR Not Detected (NotDetected)
[2024-02-08 00:30] LABS: Cdiff Antigen Positive; Cdiff Toxin A+B Negative Cdiff Toxin (Negative); Cdiff Toxin B Gene (2yr or >) Positive Cdiff Gene (Neg)
[2024-02-08] MEDS: ACETAMINOPHEN 1,000 MG/100 ML VIAL IV PRN (04:24)
--- NOTE | 2024-02-08 09:59 | Surgery Progress Note ---
Date of Service February 08, 2024 Assessment & Plan (1) Small bowel obstruction: Plan: We have been consulted for concern for SBO 2/2 left sided abdominal wall hernia containing small bowel Pt has an extensive abdominal surgical history with loss of abdominal domain Labs are pending, Vitals are stable. HRs 60-70s with normal BPs She reports + pain and nausea today, states this has been ongoing for awhile, but worsening over last several days Denies recent flatus/BM. + nausea but no true emesis On exam abdomen is soft with some mild distention and + discomfort elicited in the midline and off to the L. I believe i can appreciate a L sided midline hernia that is reducible, then pops back out with pressure Will obtain a KUB for the time being to evaluate bowel/gas pattern If worsening pain/nausea/vomiting will recommend NGT Due to complex abdominal surgical history with loss of domain if surgery is indicated may need consideration of trsfer to tertiary center Admission and Anticipated Discharge Date Admission Date: February 04, 2024 Supervising Physician Co-Signing Physician Notes pnt S&E, labs and imaging reviewed, agree with above. Mult abd surgeries w/ large ventral hernia and loss of abdominal domain, admitted last week w/ complicated UTI. Over weekend developed abd bloating and pain, CT showed sbo w/ possible transition point a left side of hernia. Patient states she has been dry heaving and not passing flatus, has pain and feels bloated. On exam large midline scar w/ midportion appears to have large ventral hernia, reducible, but retracted muscle. suspect bowel directly under skin. No peritonitis. Personally reviewed and interpreted CT, and do not agree that there is a diastasis. This appears to be a large ventral hernia w/ retracted muscle and transition point tapering within the hernia. Would recommend non operative management for now, unclear if NG tube will be beneficial given prior gastrectomy, but may try if symptoms persist. If surgical intervention becomes necessary, would recommend transfer to tertiary center given history and loss of domain. Subjective Patient reports + abdominal pain and nausea. She states it has been ongoing for the last few weeks, but has worsened over the last couple of days. Denies flatu s/BM over last 12-24 hrs. She notes some dry-heaves but no true emesis. Feels bloated. Physical Exam Physical Exam: awake/alert, no distress Gastrointestinal (Abdomen): Inspection/Auscultation: + abdomen distended (mild) and + abdominal surgical scar (midline w/ multiple port site/drain appearing scars) Percussion/Palpation: + abdomen tender (tender in midline and to the L abdomen) and abdomen soft + thin abdominal wall in the midline. le ft lateral to this i believe i appreciate a hernia and can reduce contents and pops back out with abdominal pressure Results & Data Vital Signs (Past 12 Hours) Vital Signs Temp Pulse Resp BP Pulse Ox O2 Del Method O2 Flow Rate 02/08/24 07:10 97.3 F L 63 16 131/76 97 Nasal Cannula 2 PG Care Time/CCT Total # of Minutes Spent Total Time Spent with Patient: Total time spent is greater than 50% in coordination of care (as documented) at patient's floor/unit and/or counseling patient: Coding Level of Care Code 49545 SUB INP/OBS CARE 10/29MIN Diagnoses Small bowel obstruction K56.609
[2024-02-08] MEDS: ONDANSETRON INJ 2 MG/ML 2 ML VIAL IV STA (10:27)
[2024-02-08 11:01] LABS: Basophils # (auto) 0.03 K/uL (0.00-0.20); Basophils % (auto) 0.8 %; Eosinophils # (auto) 0.14 K/uL (0.00-0.50); Eosinophils % (auto) 3.9 %; Hematocrit (blood only) 35.6 % (37.0-47.0); Hemoglobin 11.3 g/dl (12.0-16.0); Immature Granulocytes # (auto) 0.02 K/uL (0.01-0.20); Immature Granulocytes % (auto) 0.6 %; Lymphocytes # (auto) 0.86 K/uL (1.20-3.40); Mean Corpuscular Hemoglobin 29.8 pg (25.0-34.0); Mean Corpuscular Hgb Conc 31.7 g/dL (32.0-36.0); Mean Corpuscular Volume 93.9 fL (80.0-100.0); Mean Platelet Volume 9.8 fL (9.4-12.4); Monocytes # (auto) 0.53 K/uL (0.11-0.59); Monocytes % (auto) 14.8 %; Neutrophils % (auto) 55.9 %; Platelet Count 169 K/uL (130-400); RDW Coefficient of Variation 18.5 % (11.5-14.5); RDW Standard Deviation 64.4 fL (36.4-46.3); Red Blood Count 3.79 M/uL (4.20-5.40); White Blood Count 3.58 K/ul (4.8-10.8)
[2024-02-08 11:06] LABS: BUN Creatinine Ratio 11.8 (10-20); Calcium 7.2 mg/dl (8.6-10.3); Creatinine Clr Calc Pharmacy 54.7 ml/min; Est GFR (African American) 91.5 ml/min; Est GFR (Non-African American) 78.9 ml/min; Potassium 4.3 mmol/L (3.5-5.1)
--- NOTE | 2024-02-08 11:48 | XRay Report ---
XR KUB/Abdomen 1 view CLINICAL HISTORY: eval bowel/gas pattern TECHNIQUE: 1 view of the abdomen was obtained. Comparison: Comparison is made to abdomen radiograph 02/06/2024 FINDINGS: Lung bases are unremarkable. Degenerative changes are seen in the visualized skeleton. Postsurgical c hanges are seen in the upper abdomen. The bowel gas pattern is nonobstructive. Prominent colonic gas is seen. IMPRESSION: Prominent colonic gas is seen. No evidence of bowel obstruction. ACT 112: Negative or not required by law. Electronically signed by: Evan Ventura M.D. 02/08/2024 11:46 AM
[2024-02-08] MEDS: PROMETHAZINE HCL 6.25 MG in SODIUM CHLORIDE 0.9% 50 ML IV PRN (15:04)
--- NOTE | 2024-02-08 17:07 | Hospitalist Progress Note ---
Date of Service February 08, 2024 Assessment & Plan (1) Complicated UTI (urinary tract infection): Plan: Complicated urinary tract infection H/O recurrent UTIs with ESBL, Pseudomonas Urine culture grew ESBL E. coli CT as below Continue meropenem Dysuria improving Continue current management Small bowel obstruction Chronic diarrhea possible IBS as per GI evaluation from recent admission --CT ABD:Fluid and gas-filled small bowel loops could represent enteritis or ileus in the appropriate clinical setting. Atrophy of the right kidney. Nonobstructing bilateral renal stones. No hydronephrosis or ureteral stone. Bowel loops are again noted to be bulging along a diastatic anterior abdominal wall just under the skin surface. --Repeat CT abdomen:There is a new small left mid abdominal wall hernia containing a short segment of small bowel. Proximal to this herniated bowel, the proximal jejunum and duodenum of the afferent loop are mildly distended and fluid-filled. Therefore, this is concerning for small bowel obstruction secondary to this bowel containing hernia. Bilateral nephrolithiasis. No ureteral stones. No hydronephrosis. Antiemetics as needed N.p.o. for now Gentle IV fluids Appreciate surgery input Conservative management as per surgery If requires surgery, patient needs tertiary care facility Chronic diastolic heart failure Last EF 55 to 60%, TTE 2022 Clinically looks dry Monitor volume status Not on diuretics at home Monitor Sinus node dysfunction S/P pacemaker Asthma/COPD/ILD, LARRY Pulmonary hypertension Pulmonary status seem to be at baseline Continue home medications CKD II Renal function at baseline Monitor renal function Hypokalemia Replete electrolytes as needed Monitor Other chronic conditions: H/O Gastric bypass--- continue home meds Hypothyroidism--continue levothyroxine Chronic anemia--stable H/O Pancreatic insufficiency/malabsorption--continue home meds Mood/anxiety disorder--mood at baseline, continue home meds Chronic pain/neuropathy Chronic headache, possible tension headaches as per neurology H/O MRSA Functional disability given recurrent admissions/compliance issues--PT OT prior to discharge DVT Px: Lovenox SQ--Hold given possible procedure SCDs for now Code Status Full code Admission and Anticipated Discharge Date Admission Date: February 04, 2024 Subjective Patient is seen and examined at bedside Reports persistent nausea, abdominal pain Denies any flatus, BM today Also denies chest pain, dyspnea, dizziness Review of Systems Review of Systems: All systems reviewed & are unremarkable except as noted in Subjective Physical Exam Physical Exam: Physical Exam: Vitals signs as noted above General Appearance:Obese, no apparent distress Head: normocephalic, Atraumatic Eyes: normal inspection, EOMI Neck: supple, Trachea midline Respiratory/Chest: Normal breath sounds, CTA, R port, No accessory muscle use Cardiovascular: S1, S2, No murmur Abdomen/GI:Soft, mild epigastric tender, distended, abdominal surgical scar, bowel sounds diminished Extremities/Musculoskeletal:normal inspection, no edema Neurologic/Psych:AAOX3, grossly no focal neurological deficits Skin: normal color, warm Results & Data Results & Data Vital Signs (Past 12 Hours) Vital Signs Temp Pulse Resp BP Pulse Ox O2 Del Method O2 Flow Rate 02/08/24 14:17 36.2 C L 67 16 132/79 94 Room Air 02/08/24 07:10 36.3 C L 63 16 131/76 97 Nasal Cannula 2 Laboratory Results Short CBC 02/08/24 Range/Units 10:22 WBC 3.58 L (4.8-10.8) K/ul Hgb 11.3 L (12.0-16.0) g/dl Hct 35.6 L (37.0-47.0) % Plt Count 169 (130-400) K/uL BMP 02/08/24 10:22 Sodium 144 Potassium 4.3 Chloride 111 H Carbon Dioxide 30 BUN 9 Creatinine 0.76 Glucose 95 Calcium 7.2 L
--- NOTE | 2024-02-09 07:59 | Surgery Progress Note ---
Date of Service February 09, 2024 Assessment & Plan (1) Abdominal pain: Plan: We have been consulted for concern for SBO on most recent CT scan Pt has an extensive abdominal surgical history with loss of abdominal domain Vitals are stable. HRs 60-70s with normal BPs She continues to report + pain and nausea Denies recent flatus/BM. + nausea but no true emesis On exam abdomen is soft with some mild distention and + discomfort elicited across the midline KUB yesterday showed non obstructive bowel gas pattern, will repeat again today for further info If worsening pain/nausea/vomiting will recommend NGT, but likely okay to hold off for now Continue NPO status Due to complex abdominal surgical history with loss of domain if surgery is indicated may need consideration of trsfer to tertiary center Admission and Anticipated Discharge Date Admission Date: February 04, 2024 Supervising Physician Co-Signing Physician Notes pnt s&e, agree w/ above. 2 bms this morning, still sore but improving. afvss, abd soft, minimally ttp, mild distention. wbc normal. kub w air and stool in colon. resolving sbo, continue non operative management. if surgery indicated, would recommend tertiary center. Subjective Patient reports feeling about the same. Ongoing abdominal pain, some mild nausea but no vomiting. No flatus/BM. Physical Exam Physical Exam: awake/alert, no distress Gastrointestinal (Abdomen): Inspection/Auscultation: + abdomen distended (mild) and + abdominal surgical scar (midline w/ multiple port site/drain appearing scars) Percussion/Palpation: + abdomen tender (tender across the midline) and abdomen soft Results & Data Vital Signs (Past 12 Hours) Vital Signs Temp Pulse Resp BP Pulse Ox O2 Del Method O2 Flow Rate 02/09/24 06:59 97.7 F 68 16 125/72 98 Nasal Cannula 2 02/08/24 20:20 98.1 F 68 16 124/77 93 Room Air 02/08/24 20:00 Room Air PG Care Time/CCT Total # of Minutes Spent Total Time Spent with Patient: Total time spent is greater than 50% in coordination of care (as documented) at patient's floor/unit and/or counseling patient: Coding Level of Care Code 97842 SUB INP/OBS CARE 1/25MIN Diagnoses Abdominal pain R10.9
[2024-02-09 08:16] LABS: Hematocrit (blood only) 37.1 % (37.0-47.0); Hemoglobin 11.8 g/dl (12.0-16.0); Mean Corpuscular Hgb Conc 31.8 g/dL (32.0-36.0); Mean Corpuscular Volume 94.4 fL (80.0-100.0); Mean Platelet Volume 9.6 fL (9.4-12.4); Platelet Count 174 K/uL (130-400); RDW Coefficient of Variation 17.9 % (11.5-14.5); RDW Standard Deviation 62.4 fL (36.4-46.3); Red Blood Count 3.93 M/uL (4.20-5.40); White Blood Count 4.46 K/ul (4.8-10.8)
[2024-02-09 08:39] LABS: BUN Creatinine Ratio 14.5 (10-20); Calcium 6.9 mg/dl (8.6-10.3); Creatinine Clr Calc Pharmacy 67.1 ml/min; Est GFR (African American) 105.1 ml/min; Est GFR (Non-African American) 90.7 ml/min; Magnesium 1.6 mg/dl (1.7-2.4); Potassium 4.4 mmol/L (3.5-5.1)
--- NOTE | 2024-02-09 08:51 | XRay Report ---
XR KUB/Abdomen 1 view CLINICAL HISTORY: eval bowel/gas pattern TECHNIQUE: 1 view of the abdomen was obtained. Comparison: Comparison is made to abdomen radiograph 02/08/2024 FINDINGS: Postsurgical changes are in the left upper quadrant, compatible with gastric bypass. Right renal ston es are seen. Degenerative changes are seen in the visualized skeleton. The bowel gas pattern is nonob structive. A moderate amount of stool is noted within the large bowel. IMPRESSION: Nonobstructive bowel gas pattern. ACT 112: Negative or not required by law. Electronically signed by: Evan Ventura M.D. 02/09/2024 8:50 AM
[2024-02-09] MEDS: MAGNESIUM SULFATE / D5W 1 GM/100 ML BAG IV ONE (11:23)
--- NOTE | 2024-02-09 17:38 | Hospitalist Progress Note ---
Date of Service February 09, 2024 Assessment & Plan (1) Complicated UTI (urinary tract infection): Plan: Complicated urinary tract infection H/O recurrent UTIs with ESBL, Pseudomonas Urine culture grew ESBL E. coli CT as below Continue meropenem Day #5 Dysuria resolved Small bowel obstruction Chronic diarrhea possible IBS as per GI evaluation from recent admission --CT ABD:Fluid and gas-filled small bowel loops could represent enteritis or ileus in the appropriate clinical setting. Atrophy of the right kidney. Nonobstructing bilateral renal stones. No hydronephrosis or ureteral stone. Bowel loops are again noted to be bulging along a diastatic anterior abdominal wall just under the skin surface. --Repeat CT abdomen:There is a new small left mid abdominal wall hernia containing a short segment of small bowel. Proximal to this herniated bowel, the proximal jejunum and duodenum of the afferent loop are mildly distended and fluid-filled. Therefore, this is concerning for small bowel obstruction secondary to this bowel containing hernia. Bilateral nephrolithiasis. No ureteral stones. No hydronephrosis. Antiemetics as needed Gentle IV fluids as needed Appreciate surgery input Conservative management as per surgery If requires surgery, patient needs tertiary care facility Started on liquid diet today Chronic diastolic heart failure Last EF 55 to 60%, TTE 2022 Clinically looks dry Monitor volume status Not on diuretics at home Monitor Sinus node dysfunction S/P pacemaker Asthma/COPD/ILD, LARRY Pulmonary hypertension Pulmonary status seem to be at baseline Continue home medications CKD II Renal function at baseline Monitor renal function Hypokalemia Replete electrolytes as needed Monitor Other chronic conditions: H/O Gastric bypass--- continue home meds Hypothyroidism--continue levothyroxine Chronic anemia--stable H/O Pancreatic insufficiency/malabsorption--continue home meds Mood/anxiety disorder--mood at baseline, continue home meds Chronic pain/neuropathy Chronic headache, possible tension headaches as per neurology H/O MRSA Functional disability given recurrent admissions/compliance issues--PT OT prior to discharge DVT Px: Lovenox SQ--Hold given possible procedure SCDs for now Code Status Full code Admission and Anticipated Discharge Date Admission Date: February 04, 2024 Subjective Patient is seen and examined at bedside Reports having flatus, small BM today Also reports nausea and abdominal pain today Also denies chest pain, dyspnea, dizziness Review of Systems Review of Systems: All systems reviewed & are unremarkable except as noted in Subjective Physical Exam Physical Exam: Physical Exam: Vitals signs as noted above General Appearance:Obese, no apparent distress Head: normocephalic, Atraumatic Eyes: normal inspection, EOMI Neck: supple, Trachea midline Respiratory/Chest: Normal breath sounds, CTA, R port, No accessory muscle use Cardiovascular: S1, S2, No murmur Abdomen/GI:Soft, mild tender, distended, abdominal surgical scar, bowel sounds diminished Extremities/Musculoskeletal:normal inspection, no edema Neurologic/Psych:AAOX3, grossly no focal neurological deficits Skin: normal color, warm Results & Data Results & Data Vital Signs (Past 12 Hours) Vital Signs Temp Pulse Resp BP Pulse Ox O2 Del Method O2 Flow Rate 02/09/24 14:20 36.6 C 79 16 132/82 92 Room Air 02/09/24 08:02 Room Air 02/09/24 06:59 36.5 C 68 16 125/72 98 Nasal Cannula 2 Laboratory Results Short CBC 02/09/24 Range/Units 07:42 WBC 4.46 L (4.8-10.8) K/ul Hgb 11.8 L (12.0-16.0) g/dl Hct 37.1 (37.0-47.0) % Plt Count 174 (130-400) K/uL BMP 02/09/24 07:42 Sodium 142 Potassium 4.4 Chloride 108 H Carbon Dioxide 26 BUN 9 Creatinine 0.62 Glucose 77 Calcium 6.9 L
[2024-02-10 08:25] LABS: Hematocrit (blood only) 34.8 % (37.0-47.0); Hemoglobin 11.1 g/dl (12.0-16.0); Mean Corpuscular Hemoglobin 29.8 pg (25.0-34.0); Mean Corpuscular Hgb Conc 31.9 g/dL (32.0-36.0); Mean Corpuscular Volume 93.5 fL (80.0-100.0); Mean Platelet Volume 9.6 fL (9.4-12.4); Platelet Count 175 K/uL (130-400); RDW Coefficient of Variation 17.4 % (11.5-14.5); RDW Standard Deviation 60.4 fL (36.4-46.3); Red Blood Count 3.72 M/uL (4.20-5.40)
--- NOTE | 2024-02-10 08:37 | Surgery Progress Note ---
Date of Service February 10, 2024 Assessment & Plan (1) Small bowel obstruction: Plan: having BMs yesterday +flatus mild nausea off and on , no emesis tolerating diet VSS Could advance to full liquid and see how she fairs Will follow along Admission and Anticipated Discharge Date Admission Date: February 04, 2024 Supervising Physician Co-Signing Physician Notes pnt S&E, agree w/ above. Complex abd surgical history, admitted for complex uti, during stay developed psbo. Was doing well yest, now increased distention, cramping and nausea. abd slightly more distended, large hernia reduces but protrudes immediately. KUB personally reviewed and interpreted, increased distention. will order repeat ct w/ oral and iv contrast. If surgery indicated, needs transfer to tertiary center. Subjective Pt reports some abd achiness over midline abdominal area/post grafting site Started having BMs yesterday +flatus mild nausea off and on , no emesis tolerating diet Review of Systems Constitutional: no fever and no chills Respiratory: no dyspnea Cardiovascular: no chest pain Gastrointestinal: + abdominal pain, + nausea and + crampin g; no vomiting Musculoskeletal: no muscle weakness Psychiatric: no confusion Physical Exam Physical Exam: alert oriented pleasant Constitutional: cooperative and comfortable; no acute distress Respiratory: normal respiratory effort and able to speak in complete sentences; no respiratory distress Cardiovascular: Rate/Rhythm: regular rate Gastrointestinal (Abdomen): Inspection/Auscultation: + abdominal surgical scar Percussion/Palpation: + abdomen tender and abdomen soft Results & Data Vital Signs (Past 12 Hours) Vital Signs Temp Pulse Resp BP BP Pulse Ox O2 Del Method 02/10/24 07:40 97.7 F 60 16 122/78 92 Room Air 02/09/24 21:09 98.1 F 64 18 112/68 93 Room Air PG Care Time/CCT Total # of Minutes Spent Total Time Spent with Patient: Total time spent is greater than 50% in coordination of care (as documented) at patient's floor/unit and/or counseling patient: Coding Level of Care Code 00467 SUB INP/OBS CARE 1/25MIN Diagnoses Small bowel obstruction K56.609
[2024-02-10 09:00] LABS: BUN Creatinine Ratio 12.9 (10-20); Calcium 6.6 mg/dl (8.6-10.3); Creatinine Clr Calc Pharmacy 67.1 ml/min; Est GFR (African American) 105.1 ml/min; Est GFR (Non-African American) 90.7 ml/min; Magnesium 1.7 mg/dl (1.7-2.4); Potassium 3.8 mmol/L (3.5-5.1)
[2024-02-10] MEDS: ACETAMINOPHEN 325 MG TAB PO PRN (09:45)
--- NOTE | 2024-02-10 11:43 | XRay Report ---
KUB CLINICAL HISTORY: Monitor SBO COMPARISON STUDY: CT of the abdomen and pelvis February 07, 2024. KUB February 09, 2024. FINDINGS: Abdominal and pelvic surgical clips are noted. There is a left upper quadrant surgical stap le line. Gas throughout the colon and rectum is noted. Several loops of dilated small bowel are noted . Small bowel dilatation has increased since prior exam. IMPRESSION: Increase in small bowel dilatation. The findings could reflect a partial small bowel obs truction or ileus. ACT 112: Negative or not required by law. Electronically signed by: Mehrdad Torre M.D. 02/10/2024 11:42 AM
[2024-02-10] MEDS: LACTATED RINGER'S 1,000 ML IV SCH (15:21)
--- NOTE | 2024-02-10 15:27 | Hospitalist Progress Note ---
Date of Service February 10, 2024 Assessment & Plan (1) Complicated UTI (urinary tract infection): Plan: Complicated urinary tract infection H/O recurrent UTIs with ESBL, Pseudomonas Urine culture grew ESBL E. coli CT as below Continue meropenem Day #6 Dysuria resolved Small bowel obstruction Chronic diarrhea possible IBS as per GI evaluation from recent admission --CT ABD:Fluid and gas-filled small bowel loops could represent enteritis or ileus in the appropriate clinical setting. Atrophy of the right kidney. Nonobstructing bilateral renal stones. No hydronephrosis or ureteral stone. Bowel loops are again noted to be bulging along a diastatic anterior abdominal wall just under the skin surface. --Repeat CT abdomen:There is a new small left mid abdominal wall hernia containing a short segment of small bowel. Proximal to this herniated bowel, the proximal jejunum and duodenum of the afferent loop are mildly distended and fluid-filled. Therefore, this is concerning for small bowel obstruction secondary to this bowel containing hernia. Bilateral nephrolithiasis. No ureteral stones. No hydronephrosis. Antiemetics as needed KUB today noted increased small bowel dilatation Diet was held initially and CT abd w/po and IV co obtained CT abd today reported no evidence of bowel obstruction, small left mid abd wall bowel containing hernia have been reduced, b/l nephrolithiasis without hydronephrosis Resume liquid diet and monitor Chronic diastolic heart failure Last EF 55 to 60%, TTE 2022 Monitor volume status Not on diuretics at home Sinus node dysfunction S/P pacemaker Asthma/COPD/ILD, LARRY Pulmonary hypertension Pulmonary status seem to be at baseline Continue home medications CKD II Renal function at baseline Monitor renal function Other chronic conditions: H/O Gastric bypass--- continue home meds Hypothyroidism--continue levothyroxine Chronic anemia--stable H/O Pancreatic insufficiency/malabsorption--continue home meds Mood/anxiety disorder--mood at baseline, continue home meds Chronic pain/neuropathy Chronic headache, possible tension headaches as per neurology H/O MRSA Functional disability given recurrent admissions/compliance issues--PT OT prior to discharge DVT Px: Lovenox SQ--Hold given possible procedure SCDs for now Code Status Full code I spent a total of 50 minutes coordinating, documenting and providing care for this patient excluding time spent in performance of separately billed services Admission and Anticipated Discharge Date Admission Date: February 04, 2024 Subjective Patient seen and examined. Patient reported severe abdominal pain before lunchtime Reported nausea. Reported two small-volume emesis since lunch. Denies any fever, chills Denies any dizziness Denies any chest pain, cough, shortness of breath Reported small bowel movement earlier today Physical Exam Constitutional: + well hydrated; no acute distress Eyes: PERRL, conjunctivae normal, anicteric sclerae ENMT: external ear and nose normal, oropharynx normal Respiratory: normal respiratory effort, lungs clear to auscultation Cardiovascular: S1 S2 Gastrointestinal (Abdomen): Soft, surgical scar,+ tenderness, bowel sounds Musculoskeletal: No pedal edema Neurologic: PERRL, EOMI, accommodation nl, no face palsy, no dysarthria Psychiatric: A+Ox3, euthymic affect Results & Data Results & Data Vital Signs (Past 12 Hours) Vital Signs Temp Pulse Resp BP Pulse Ox O2 Del Method 02/10/24 14:32 36.5 C 70 16 144/84 H 96 Room Air 02/10/24 07:40 36.5 C 60 16 122/78 92 Room Air 02/10/24 07:35 Room Air Laboratory Results Abnormal lab results 02/10/24 Range/Units 07:44 WBC 3.80 L (4.8-10.8) K/ul RBC 3.72 L (4.20-5.40) M/uL Hgb 11.1 L (12.0-16.0) g/dl Hct 34.8 L (37.0-47.0) % MCHC 31.9 L (32.0-36.0) g/dL RDW Std Deviation 60.4 H (36.4-46.3) fL RDW Coeff of David 17.4 H (11.5-14.5) % Chloride 109 H (98-107) mmol/L Calcium 6.6 L (8.6-10.3) mg/dl
[2024-02-10] MEDS: OPTIRAY 320 100ml IV ONE (16:00)
--- NOTE | 2024-02-10 16:18 | CT Scan Report ---
ABDOMEN AND PELVIS CT WITH IV AND ORAL CONTRAST CT DOSE: 1120.9 mGy.cm HISTORY: Small bowel obstruction. Normal KUB. TECHNIQUE: Multiaxial CT images of the abdomen and pelvis were performed following the use of intrave nous and oral contrast. A dose lowering technique was utilized adhering to the principles of ALARA. COMPARISON STUDY: Abdomen and pelvis CT 02/07/2024. FINDINGS: Chronic interstitial thickening and scattered linear scarlike densities persist within the lung bases. No pneumoperitoneum. No pneumatosis. Partially visualized catheter tip of the distal SVC. The heart remains mildly enlarged. The spleen and adrenal glands unremarkable. No hepatic masses. Mi ld intrahepatic bile duct dilatation is noted. Prior cholecystectomy. Fatty atrophy of the pancreas a gain noted. LM millimeters cystic focus at the uncinate process of the pancreas is likely benign. Nima ateral nephrolithiasis. No hydronephrosis. A 1 cm cyst within the atrophic right kidney. Postoperativ e changes consistent with a prior distal gastrectomy. Mild bladder wall thickening may be due to unde rdistention. Prior hysterectomy. No pelvic free fluid or pelvic lymphadenopathy. Normal caliber abdom inal aorta. Contrast seen within the ascending colon. No dilated loops of bowel to suggest an obstruc tion. The small fat-containing hernia within the left mid abdominal wall appears to have been reduced in the interval. Diastases and marked thinning of the anterior midline abdominal wall, unchanged. IMPRESSION: 1. No evidence for a bowel obstruction. 2. The small left mid abdominal wall bowel containing hernia appears to have been reduced in the inte rval. 3. Bilateral nephrolithiasis. No hydronephrosis. 4. Postoperative changes as described above. ACT 112: Negative or not required by law. Electronically signed by: Noel Crenshaw M.D. 02/10/2024 4:17 PM
[2024-02-11] MEDS: METOCLOPRAMIDE HCL INJ 5 MG/ML 2 ML VIAL IV ONE (03:14)
[2024-02-11] MEDS: HYDROmorphone INJ 0.5 MG/0.5 ML SYR IV STA (03:14)
[2024-02-11 06:55] LABS: Hematocrit (blood only) 34.9 % (37.0-47.0); Mean Corpuscular Hemoglobin 29.8 pg (25.0-34.0); Mean Corpuscular Hgb Conc 31.5 g/dL (32.0-36.0); Mean Corpuscular Volume 94.6 fL (80.0-100.0); Platelet Count 161 K/uL (130-400); RDW Coefficient of Variation 17.5 % (11.5-14.5); RDW Standard Deviation 61.3 fL (36.4-46.3); Red Blood Count 3.69 M/uL (4.20-5.40); White Blood Count 3.55 K/ul (4.8-10.8)
[2024-02-11 07:22] LABS: BUN Creatinine Ratio 9.4 (10-20); Calcium 6.9 mg/dl (8.6-10.3); Est GFR (African American) 104.1 ml/min; Est GFR (Non-African American) 89.8 ml/min; Magnesium 1.7 mg/dl (1.7-2.4); Phosphorus 2.2 mg/dl (2.5-4.9); Potassium 3.9 mmol/L (3.5-5.1)
--- NOTE | 2024-02-11 09:04 | XRay Report ---
KUB CLINICAL HISTORY: Small bowel obstruction. COMPARISON STUDY: KUB and CT of the abdomen and pelvis February 10, 2024. FINDINGS: Contrast within the bladder from recent contrast-enhanced CT is noted. There is also contra st within the left colon from prior CT. Prominent gas-filled loops of bowel are noted without convinc ing evidence for a bowel obstruction. IMPRESSION: 1. Prominent gas-filled loops of bowel without evidence for a bowel obstruction. 2. Oral contrast from prior CT within the descending colon and rectum. ACT 112: Negative or not required by law. Electronically signed by: Mehrdad Torre M.D. 02/11/2024 9:03 AM
[2024-02-11] MEDS: CALCIUM GLUCONATE 1,000 MG/60 ML BAG IV STA (09:28)
[2024-02-11] MEDS: POT PHOSPHATE MONOBASIC W/ SOD TAB PO SCH (09:28)
--- NOTE | 2024-02-11 09:57 | Surgery Progress Note ---
Date of Service February 11, 2024 Assessment & Plan (1) Small bowel obstruction: Plan: CT scan from yesterday and KUB from this AM reading resolving SBO Patient still has c/o nausea, without vomiting this has been an ongoing chronic issue for her Reports some relief with the Phenergan Advance diet as tolerated to low fiber if pt wishes May need GI follow up o/p and o/p fu with her surgeon in [place] will follow while in house Admission and Anticipated Discharge Date Admission Date: February 04, 2024 Subjective c/o nausea without vomiting and abdominal cramping Had BM last night Review of Systems Constitutional: + fatigue; no fever and no chills Respiratory: no dyspnea Cardiovascular: no chest pain Gastrointestinal: + abdominal pain, + nausea and + crampin g; no vomiting Physical Exam Physical Exam: alert oriented tearful at times Constitutional: cooperative; no acute distress Respiratory: normal respiratory effort and able to speak in complete sentences; no respiratory distress Gastrointestinal (Abdomen): Inspection/Auscultation: + abdominal surgical scar Percussion/Palpation: + abdomen tender and abdomen soft; abdomen not rigid Results & Data Vital Signs (Past 12 Hours) Vital Signs Temp Pulse Resp BP Pulse Ox O2 Del Method 02/11/24 07:10 Room Air 02/11/24 07:09 97.9 F 65 16 134/83 94 Room Air Diagnostic Findings [place], [place] [phone] XRay Report Patient: JOSHUA ZAVALA Admit Date: 02/04/24 MR#: [id number] Address1: [address] [place] [address] Acct ID:[id number] Address2: [address] Date: 1950 [facility] Zip: [place] [address] Age: 73 Location: 3W Sex: F Room/Bed: [facility] Att Phy: Hortensia Freeman MD Diagnosis: COMP UTI Tabatha Phy: Petra Marx MD Service Date: 02/11/24 Fam Phy: Interpreting Phy: Mehrdad Torre MDAdmit Phy: Austin Cummings MD Ordering Phy: Branden Barber cc: ~ KUB CLINICAL HISTORY: Small bowel obstruction. COMPARISON STUDY: KUB and CT of the abdomen and pelvis February 10, 2024. FINDINGS: Contrast within the bladder from recent contrast-enhanced CT is noted. There is also contrast within the left colon from prior CT. Prominent gas-filled loops of bowel are noted without convincing evidence for a bowel obstruction. IMPRESSION: 1. Prominent gas-filled loops of bowel without evidence for a bowel obstruction. 2. Oral contrast from prior CT within the descending colon and rectum. ACT 112: Negative or not required by law. Electronically signed by: Mehrdad Torre M.D. 02/11/2024 9:03 AM Dictated: 02/11/24899 Transcribed: 02/11/24899 [place], [place] [phone] CT Scan Report Patient: JOSHUA ZAVALA Admit Date: 02/04/24 MR#: [id number] Address1: [facility] [address] Acct ID:[id number] Address2: [address] Date: 1950 [facility] Zip: [place] [address] Age: 73 Location: 3W Sex: F Room/Bed: [facility] Att Phy: Hortensia Freeman MD Diagnosis: COMP UTI Tabatha Phy: Petra Marx MD Service Date: 02/10/24 Fam Phy: Interpreting Phy: Noel Crenshaw MDAdmviviana Phy: Austin Cummings MD Ordering Phy: Branden Barber cc: ~ ABDOMEN AND PELVIS CT WITH IV AND ORAL CONTRAST CT DOSE: 1120.9 mGy.cm HISTORY: Small bowel obstruction. Normal KUB. TECHNIQUE: Multiaxial CT images of the abdomen and pelvis were performed following the use of intravenous and oral contrast. A dose lowering technique was utilized adhering to the principles of ALARA. COMPARISON STUDY: Abdomen and pelvis CT 02/07/2024. FINDINGS: Chronic interstitial thickening and scattered linear scarlike densities persist within the lung bases. No pneumoperitoneum. No pneumatosis. Partially visualized catheter tip of the distal SVC. The heart remains mildly enlarged. The spleen and adrenal glands unremarkable. No hepatic masses. Mild intrahepatic bile duct dilatation is noted. Prior cholecystectomy. Fatty atrophy of the pancreas again noted. LM millimeters cystic focus at the uncinate process of the pancreas is likely benign. Bilateral nephrolithiasis. No hydronephrosis. A 1 cm cyst within the atrophic right kidney. Postoperative changes consistent with a prior distal gastrectomy. Mild bladder wall thickening may be due to underdistention. Prior hysterectomy. No pelvic free fluid or pelvic lymphadenopathy. Normal caliber abdominal aorta. Contrast seen within the ascending colon. No dilated loops of bowel to suggest an obstruction. The small fat-containing hernia within the left mid abdominal wall appears to have been reduced in the interval. Diastases and marked thinning of the anterior midline abdominal wall, unchanged. IMPRESSION: 1. No evidence for a bowel obstruction. 2. The small left mid abdominal wall bowel containing hernia appears to have been reduced in the interval. 3. Bilateral nephrolithiasis. No hydronephrosis. 4. Postoperative changes as described above. ACT 112: Negative or not required by law. Electronically signed by: Noel Crenshaw M.D. 02/10/2024 4:17 PM Dictated: 02/10/24 1610 Transcribed: 02/10/24 1610 PG Care Time/CCT Total # of Minutes Spent Total Time Spent with Patient: Total time spent is greater than 50% in coordination of care (as documented) at patient's floor/unit and/or counseling patient: Coding Level of Care Code 93568 SUB INP/OBS CARE 10/29MIN Diagnoses Small bowel obstruction K56.609
--- NOTE | 2024-02-11 14:18 | Hospitalist Progress Note ---
Date of Service February 11, 2024 Assessment & Plan (1) Complicated UTI (urinary tract infection): Plan: Complicated urinary tract infection H/O recurrent UTIs with ESBL, Pseudomonas Urine culture grew ESBL E. coli CT as below Continue meropenem Day #7 Dysuria resolved Small bowel obstruction Chronic diarrhea possible IBS as per GI evaluation from recent admission --CT ABD:Fluid and gas-filled small bowel loops could represent enteritis or ileus in the appropriate clinical setting. Atrophy of the right kidney. Nonobstructing bilateral renal stones. No hydronephrosis or ureteral stone. Bowel loops are again noted to be bulging along a diastatic anterior abdominal wall just under the skin surface. --Repeat CT abdomen:There is a new small left mid abdominal wall hernia containing a short segment of small bowel. Proximal to this herniated bowel, the proximal jejunum and duodenum of the afferent loop are mildly distended and fluid-filled. Therefore, this is concerning for small bowel obstruction secondary to this bowel containing hernia. Bilateral nephrolithiasis. No ureteral stones. No hydronephrosis. Repeat CT abd 02/10/24 reported no evidence of bowel obstruction, small left mid abd wall bowel containing hernia have been reduced, b/l nephrolithiasis without hydronephrosis Surgery recommends advancing diet as tolerated Continue antiemetics prn Will continue to monitor Replete hypocalcemia and hypophosphatemia Chronic diastolic heart failure Last EF 55 to 60%, TTE 2022 Monitor volume status Not on diuretics at home Sinus node dysfunction S/P pacemaker Asthma/COPD/ILD, LARRY Pulmonary hypertension Pulmonary status seem to be at baseline Continue home medications CKD II Renal function at baseline Monitor renal function Other chronic conditions: H/O Gastric bypass--- continue home meds Hypothyroidism--continue levothyroxine Chronic anemia--stable H/O Pancreatic insufficiency/malabsorption--continue home meds Mood/anxiety disorder--mood at baseline, continue home meds Chronic pain/neuropathy Chronic headache, possible tension headaches as per neurology H/O MRSA DVT Px: Lovenox SQ Code Status Full code I spent a total of 45 minutes coordinating, documenting and providing care for this patient excluding time spent in performance of separately billed services Admission and Anticipated Discharge Date Admission Date: February 04, 2024 Subjective Patient seen and examined. Reports intermittent nausea. Had an episode of vomiting this AM Reports antiemetics help Reports mild abd pain associated with vomiting episode Had BM earlier today Denies any fever, chills Denies any dizziness Denies any chest pain, cough, shortness of breath Denies dysuria, freq, urgency Physical Exam Constitutional: + well hydrated; no acute distress Eyes: PERRL, conjunctivae normal, anicteric sclerae ENMT: external ear and nose normal, oropharynx normal Respiratory: normal respiratory effort, lungs clear to auscultation Cardiovascular: S1 S2 Gastrointestinal (Abdomen): Soft, surgical scar,+ tenderness, bowel sounds Neurologic: PERRL, EOMI, accommodation nl, no face palsy, no dysarthria Psychiatric: A+Ox3, euthymic affect Results & Data Results & Data Vital Signs (Past 12 Hours) Vital Signs Temp Pulse Resp BP Pulse Ox O2 Del Method 02/11/24 07:10 Room Air 02/11/24 07:09 36.6 C 65 16 134/83 94 Room Air Laboratory Results Abnormal lab results 02/11/24 02/11/24 Range/Units 06:24 07:11 WBC 3.55 L (4.8-10.8) K/ul RBC 3.69 L (4.20-5.40) M/uL Hgb 11.0 L (12.0-16.0) g/dl Hct 34.9 L (37.0-47.0) % MCHC 31.5 L (32.0-36.0) g/dL RDW Std Deviation 61.3 H (36.4-46.3) fL RDW Coeff of David 17.5 H (11.5-14.5) % Chloride 110 H (98-107) mmol/L BUN/Creatinine Ratio 9.4 L (10-20) Calcium 6.9 L (8.6-10.3) mg/dl Ionized Calcium 1.02 L (1.12-1.32) mmol/L Phosphorus 2.2 L (2.5-4.9) mg/dl
[2024-02-11] MEDS: FOSAPREPITANT DIMEGLUMINE 115 MG in 0.9 % SODIUM CHLORIDE 111.1667 ML IV ONE (14:53)
[2024-02-11 19:30] LABS: Cdiff Antigen Positive; Cdiff Toxin A+B Negative Cdiff Toxin (Negative); Cdiff Toxin B Gene (2yr or >) Positive Cdiff Gene (Neg)
[2024-02-12 08:24] LABS: Hematocrit (blood only) 37.1 % (37.0-47.0); Hemoglobin 11.9 g/dl (12.0-16.0); Mean Corpuscular Hemoglobin 29.8 pg (25.0-34.0); Mean Corpuscular Hgb Conc 32.1 g/dL (32.0-36.0); Mean Corpuscular Volume 92.8 fL (80.0-100.0); Mean Platelet Volume 9.9 fL (9.4-12.4); Platelet Count 199 K/uL (130-400); RDW Coefficient of Variation 17.1 % (11.5-14.5); RDW Standard Deviation 58.3 fL (36.4-46.3); White Blood Count 5.92 K/ul (4.8-10.8)
[2024-02-12 08:56] LABS: BUN Creatinine Ratio 8.2 (10-20); Calcium 7.7 mg/dl (8.6-10.3); Est GFR (Non-African American) 82.9 ml/min; Magnesium 1.4 mg/dl (1.7-2.4); Phosphorus 2.6 mg/dl (2.5-4.9); Potassium 3.9 mmol/L (3.5-5.1)
--- NOTE | 2024-02-12 11:12 | Surgery Progress Note ---
Date of Service February 12, 2024 Assessment & Plan (1) Small bowel obstruction: Plan: resolved sbo, some of pain and nausea appears chronic due to history. cont diet as tolerated surgery will follow peripherally Dr. Bauer on over weekend no a candidate for surgery at this facility given history Admission and Anticipated Discharge Date Admission Date: February 04, 2024 Subjective resolved sbo, still w/ pain and nausea, mult loose bm's. Physical Exam Constitutional: WD/WN, vitals as above Gastrointestinal (Abdomen): Inspection/Auscultation: + abdominal surgical scar Percussion/Palpation: + abdomen tender and + hernia (large reducible); no guarding and abdomen not rigid Results & Data Vital Signs (Past 12 Hours) Vital Signs Temp Pulse Resp BP Pulse Ox O2 Del Method 02/12/24 07:32 36.7 C 78 18 130/80 93 Room Air PG Care Time/CCT Total # of Minutes Spent Total Time Spent with Patient: Total time spent is greater than 50% in coordination of care (as documented) at patient's floor/unit and/or counseling patient: Coding Level of Care Code 00741 SUB INP/OBS CARE 2/35MIN Diagnoses Small bowel obstruction K56.609
[2024-02-12] MEDS: DICYCLOMINE HCL 10 MG CAP PO ONE (11:29)
--- NOTE | 2024-02-12 14:48 | Hospitalist Progress Note ---
Date of Service February 12, 2024 Assessment & Plan (1) Complicated UTI (urinary tract infection): Plan: Complicated urinary tract infection H/O recurrent UTIs with ESBL, Pseudomonas Urine culture grew ESBL E. coli CT as below Continue meropenem Day #8 Dysuria resolved Small bowel obstruction Chronic diarrhea possible IBS as per GI evaluation from recent admission --CT ABD:Fluid and gas-filled small bowel loops could represent enteritis or ileus in the appropriate clinical setting. Atrophy of the right kidney. Nonobstructing bilateral renal stones. No hydronephrosis or ureteral stone. Bowel loops are again noted to be bulging along a diastatic anterior abdominal wall just under the skin surface. --Repeat CT abdomen:There is a new small left mid abdominal wall hernia containing a short segment of small bowel. Proximal to this herniated bowel, the proximal jejunum and duodenum of the afferent loop are mildly distended and fluid-filled. Therefore, this is concerning for small bowel obstruction secondary to this bowel containing hernia. Bilateral nephrolithiasis. No ureteral stones. No hydronephrosis. Repeat CT abd 02/10/24 reported no evidence of bowel obstruction, small left mid abd wall bowel containing hernia have been reduced, b/l nephrolithiasis without hydronephrosis Tolerating diet Continue antiemetics prn Patient asking about GI evaluation and endoscopy I discussed her case with Dr Ferguson on the phone. She had a recent EGD from 11/28 which was not remarkable GI recommends symptom mgt/supportive care and outpatient follow up with GI Replete hypocalcemia and hypomagnesemia today Start po mag daily Chronic diastolic heart failure Last EF 55 to 60%, TTE 2022 Monitor volume status Not on diuretics at home Sinus node dysfunction S/P pacemaker Asthma/COPD/ILD, LARRY Pulmonary hypertension Pulmonary status seem to be at baseline Continue home medications CKD II Renal function at baseline Monitor renal function Other chronic conditions: H/O Gastric bypass--- continue home meds Hypothyroidism--continue levothyroxine Chronic anemia--stable H/O Pancreatic insufficiency/malabsorption--continue home meds Mood/anxiety disorder--mood at baseline, continue home meds Chronic pain/neuropathy Chronic headache, possible tension headaches as per neurology H/O MRSA DVT Px: Lovenox SQ Code Status Full code Plan to dc home once antibiotics is completed and symptoms better controlled I spent a total of 45 minutes coordinating, documenting and providing care for this patient excluding time spent in performance of separately billed services Admission and Anticipated Discharge Date Admission Date: February 04, 2024 Subjective Continues to report severe intermittent abd pain, nausea and an episode of vomiting Having BM No abdominal distention Patient asked about GI evaluation Physical Exam Constitutional: + well hydrated; no acute distress Eyes: PERRL, conjunctivae normal, anicteric sclerae ENMT: external ear and nose normal, oropharynx normal Respiratory: normal respiratory effort, lungs clear to auscultation Cardiovascular: S1 S2 Gastrointestinal (Abdomen): Soft, not distended, +tender, normal bowel sounds Musculoskeletal: No pedal edema Neurologic: PERRL, EOMI, accommodation nl, no face palsy, no dysarthria Psychiatric: A+Ox3, euthymic affect Results & Data Results & Data Vital Signs (Past 12 Hours) Vital Signs Temp Pulse Resp BP Pulse Ox O2 Del Method 02/12/24 14:22 36.9 C 69 16 109/69 91 Room Air 02/12/24 07:32 36.7 C 78 18 130/80 93 Room Air Laboratory Results Abnormal lab results 02/11/24 02/12/24 Range/Units 17:20 07:54 RBC 4.00 L (4.20-5.40) M/uL Hgb 11.9 L (12.0-16.0) g/dl RDW Std Deviation 58.3 H (36.4-46.3) fL RDW Coeff of David 17.1 H (11.5-14.5) % BUN/Creatinine Ratio 8.2 L (10-20) Calcium 7.7 L (8.6-10.3) mg/dl Ionized Calcium 1.03 L (1.12-1.32) mmol/L Magnesium 1.4 L (1.7-2.4) mg/dl Stl C. diff Tox B Gene Positive Cdiff Gene H (Neg)
[2024-02-12] MEDS: MAGNESIUM SULFATE / D5W 1 GM/100 ML BAG IV SCH (16:39)
[2024-02-12] MEDS: CALCIUM GLUCONATE 1,000 MG/60 ML BAG IV STA (16:39)
[2024-02-13 07:43] LABS: Hematocrit (blood only) 32.8 % (37.0-47.0); Hemoglobin 10.3 g/dl (12.0-16.0); Mean Corpuscular Hemoglobin 29.7 pg (25.0-34.0); Mean Corpuscular Hgb Conc 31.4 g/dL (32.0-36.0); Mean Corpuscular Volume 94.5 fL (80.0-100.0); Mean Platelet Volume 9.3 fL (9.4-12.4); Platelet Count 151 K/uL (130-400); RDW Coefficient of Variation 16.5 % (11.5-14.5); RDW Standard Deviation 57.5 fL (36.4-46.3); Red Blood Count 3.47 M/uL (4.20-5.40); White Blood Count 3.55 K/ul (4.8-10.8)
[2024-02-13 08:08] LABS: BUN Creatinine Ratio 11.4 (10-20); Calcium 7.3 mg/dl (8.6-10.3); Creatinine Clr Calc Pharmacy 59.4 ml/min; Est GFR (Non-African American) 87.2 ml/min; Magnesium 1.8 mg/dl (1.7-2.4); Phosphorus 3.3 mg/dl (2.5-4.9); Potassium 3.4 mmol/L (3.5-5.1)
[2024-02-13] MEDS: MAGNESIUM OXIDE 400 MG TAB PO SCH (08:53)
--- NOTE | 2024-02-13 13:07 | Hospitalist Progress Note ---
Date of Service February 13, 2024 Assessment & Plan (1) Complicated UTI (urinary tract infection): Plan: Complicated urinary tract infection H/O recurrent UTIs with ESBL, Pseudomonas Urine culture grew ESBL E. coli CT as below Continue meropenem Day #9 Dysuria resolved Small bowel obstruction Chronic diarrhea possible IBS as per GI evaluation from recent admission --CT ABD:Fluid and gas-filled small bowel loops could represent enteritis or ileus in the appropriate clinical setting. Atrophy of the right kidney. Nonobstructing bilateral renal stones. No hydronephrosis or ureteral stone. Bowel loops are again noted to be bulging along a diastatic anterior abdominal wall just under the skin surface. --Repeat CT abdomen:There is a new small left mid abdominal wall hernia containing a short segment of small bowel. Proximal to this herniated bowel, the proximal jejunum and duodenum of the afferent loop are mildly distended and fluid-filled. Therefore, this is concerning for small bowel obstruction secondary to this bowel containing hernia. Bilateral nephrolithiasis. No ureteral stones. No hydronephrosis. Repeat CT abd 02/10/24 reported no evidence of bowel obstruction, small left mid abd wall bowel containing hernia have been reduced, b/l nephrolithiasis without hydronephrosis Tolerating diet Continue antiemetics prn Reports N, V and abd pain has been recurring since hospitalization 2 months ago On 02/12/24, I discussed her case with Dr Ferguson on the phone. She had a recent EGD from 11/28 which was not remarkable GI recommends symptom mgt/supportive care and outpatient follow up with GI Continue po mag daily Replete hypokalemia Chronic diastolic heart failure Last EF 55 to 60%, TTE 2022 Monitor volume status Not on diuretics at home Sinus node dysfunction S/P pacemaker Asthma/COPD/ILD, LARRY Pulmonary hypertension Pulmonary status seem to be at baseline Continue home medications CKD II Renal function at baseline Monitor renal function Other chronic conditions: H/O Gastric bypass--- continue home meds Hypothyroidism--continue levothyroxine Chronic anemia--stable H/O Pancreatic insufficiency/malabsorption--continue home meds Mood/anxiety disorder--mood at baseline, continue home meds Chronic pain/neuropathy Chronic headache, possible tension headaches as per neurology H/O MRSA DVT Px: Lovenox SQ Code Status Full code Plan to dc home tomorrow after completion of antibiotics I spent a total of 45 minutes coordinating, documenting and providing care for this patient excluding time spent in performance of separately billed services Admission and Anticipated Discharge Date Admission Date: February 04, 2024 Subjective Patient seen and examined Reports nausea, vomiting especially in the morning Reports some intermittent abd pain Having BMs No abdominal distention Denied other complaints Physical Exam Constitutional: + well hydrated; no acute distress Eyes: PERRL, conjunctivae normal, anicteric sclerae ENMT: external ear and nose normal, oropharynx normal Respiratory: normal respiratory effort, lungs clear to auscultation Cardiovascular: S1 S2 Gastrointestinal (Abdomen): normal bowel sounds, soft, nontender, no hepatosplenomegaly Musculoskeletal: No pedal edema Neurologic: PERRL, EOMI, accommodation nl, no face palsy, no dysarthria Psychiatric: A+Ox3, euthymic affect Results & Data Results & Data Vital Signs (Past 12 Hours) Vital Signs Temp Pulse Resp BP Pulse Ox O2 Del Method 02/13/24 08:56 36.8 C 71 18 119/71 94 Room Air Laboratory Results Abnormal lab results 02/13/24 Range/Units 07:19 WBC 3.55 L (4.8-10.8) K/ul RBC 3.47 L (4.20-5.40) M/uL Hgb 10.3 L (12.0-16.0) g/dl Hct 32.8 L (37.0-47.0) % MCHC 31.4 L (32.0-36.0) g/dL RDW Std Deviation 57.5 H (36.4-46.3) fL RDW Coeff of David 16.5 H (11.5-14.5) % MPV 9.3 L (9.4-12.4) fL Potassium 3.4 L (3.5-5.1) mmol/L Carbon Dioxide 34 H (21-32) mmol/L Calcium 7.3 L (8.6-10.3) mg/dl
[2024-02-13] MEDS: POTASSIUM CHLORIDE CRTAB 20 MEQ TABCR PO STA (15:07)
[2024-02-14 07:24] LABS: Hematocrit (blood only) 32.1 % (37.0-47.0); Mean Corpuscular Hemoglobin 29.9 pg (25.0-34.0); Mean Corpuscular Hgb Conc 31.2 g/dL (32.0-36.0); Mean Corpuscular Volume 95.8 fL (80.0-100.0); Mean Platelet Volume 9.7 fL (9.4-12.4); Platelet Count 146 K/uL (130-400); RDW Coefficient of Variation 16.5 % (11.5-14.5); RDW Standard Deviation 59.1 fL (36.4-46.3); Red Blood Count 3.35 M/uL (4.20-5.40); White Blood Count 3.18 K/ul (4.8-10.8)
[2024-02-14 08:04] LABS: Potassium 4.1 mmol/L (3.5-5.1)
[2024-02-14 08:05] LABS: BUN Creatinine Ratio 15.6 (10-20); Calcium 6.9 mg/dl (8.6-10.3); Creatinine Clr Calc Pharmacy 46.2 ml/min; Est GFR (African American) 74.6 ml/min; Est GFR (Non-African American) 64.3 ml/min; Magnesium 1.7 mg/dl (1.7-2.4); Phosphorus 2.7 mg/dl (2.5-4.9)
--- NOTE | 2024-02-14 13:33 | Discharge Summary ---
Date of Service February 14, 2024 Admission HPI Per Admitting Provider History obtained from patient and records. Medical history significant for chronic diastolic heart failure (EF 55 to 60%, TTE 2022), sinus node dysfunction sp PPM, asthma/COPD/ILD, LARRY, pulmonary hypertension, CRI (baseline creatinine 1.3), history of gastric bypass, hyperparathyroidism as per records, hypothyroidism, reactive hypoglycemia as per records, ankylosing spondylitis as per records, chronic anemia (baseline hemoglobin of 9-10), recurrent UTIs (hx ESBL E. coli infection), urolithiasis, history pancreatic insufficiency/malabsorption as per records, mood/anxiety disorder, chronic pain/neuropathy, chronic diarrhea, chronic headache, hx MRSA. Recent confinement 2 months ago for encephalopathy secondary to respiratory failure secondary to bilateral pneumonia. Patient discharged to [facility] for rehab prior to transitioning home. According to patient, she has not been well since leaving hospital few months ago. Chronic watery diarrhea symptoms without unusual abdominal pain. Intermittent achy headache symptoms attributed by neurology to tension headache as per outpatient note from 2 weeks ago. Few days ago, patient noted dysuria symptoms along with nausea, vomiting and chills. No unusual chest pain, SOB, headache symptoms. IV meropenem administered at the ER. 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 Admission Exam Per Admitting Provider GENERAL: Comfortable, eating a sandwich, obese, no respiratory distress SKIN: Pallor, warm HEENT: Bespectacled, pale palpebral conjunctivae, no ptosis, dry buccal mucosa NECK : Supple, no tenderness CHEST : Decreased breath sounds, no tenderness HEART :RRR, systolic murmur ABDOMEN: Some distention, no tenderness EXTREMITIES : Minimal LE swelling, no LE tenderness NEUROLOGIC : Coherent, no facial asymmetry, pleasant, gait and stance not assessed Principal Diagnosis Complicated urinary tract infection Small bowel obstruction Discharge Exam Constitutional + well hydrated; no acute distress Eyes PERRL, conjunctivae normal, anicteric sclerae ENMT external ear and nose normal, oropharynx normal Respiratory normal respiratory effort, lungs clear to auscultation Cardiovascular S1 S2 Gastrointestinal (Abdomen) normal bowel sounds, soft, nontender, no hepatosplenomegaly Neurologic PERRL, EOMI, accommodation nl, no face palsy, no dysarthria Psychiatric A+Ox3, euthymic affect Discharge Data Allergies Allergy/AdvReac Type Severity Reaction Status Date / Time bethanechol Allergy Intermediate RASH, Verified 02/04/24 19:35 "FEELS FUNNY" Cephalosporins Allergy Intermediate RASH, Verified 02/04/24 19:35 DIARRHEA levofloxacin Allergy Intermediate RASH,TURNED Verified 02/04/24 19:35 RED Sulfa (Sulfonamide Allergy Intermediate Generalized Verified 02/04/24 19:35 Antibiotics) Rash ertapenem Allergy Mild RASH Verified 02/04/24 19:35 atropine Allergy Unknown ON [facility] MED Verified 02/04/24 19:35 LIST clindamycin Allergy Unknown Unknown Verified 02/04/24 19:35 dipyridamole Allergy Unknown PERSANTINE--ON Verified 02/04/24 19:35 [facility] MED LIST droperidol Allergy Unknown Unknown Verified 02/04/24 19:35 meperidine [From Demerol] Allergy Unknown ? ALLERGY Verified 02/04/24 19:35 ON [facility] MED LIST promethazine Allergy Unknown UNKNOWN Verified 02/04/24 19:35 tobramycin Allergy Unknown UNKNOWN Verified 02/04/24 19:35 aspirin AdvReac Severe BLEEDING Verified 02/04/24 19:35 doxycycline AdvReac Severe severe Verified 02/04/24 19:35 Diarrhea, nausea metolazone AdvReac Severe ELECTROLYTE Verified 02/04/24 19:35 ISSUES--HYPOKALEMIA bupropion AdvReac Intermediate NERVOUS Verified 02/04/24 19:35 REACTION cephalexin AdvReac Intermediate GI SYMPTOMS Verified 02/04/24 19:35 morphine AdvReac Intermediate NERVOUS Verified 02/04/24 19:35 REACTION TO IT nitrofurantoin AdvReac Intermediate Vomiting Verified 02/04/24 19:35 [From Macrobid] prochlorperazine AdvReac Intermediate NERVOUS Verified 02/04/24 19:35 REACTION tedizolid AdvReac Intermediate GI SYMPTOMS Verified 02/04/24 19:35 venlafaxine [From Effexor] AdvReac Intermediate NERVOUS Verified 02/04/24 19:35 REACTION lamotrigine AdvReac Unknown tremors Verified 02/04/24 19:35 Consultations 02/04/24 20:12 ED Decision to Admit Stat 02/07/24 17:16 Consult General Surgery Routine Ordered Studies 02/04/24 18:03 CT abd pelvis wo con Stat 02/04/24 18:13 CT head/brain wo con Stat 02/07/24 14:31 CT Abd and Pelvis [CT abd pelvis wo con] Urgent 02/10/24 12:39 CT abd pelvis oral and IV con Routine Hospital Course (1) Complicated UTI (urinary tract infection): Complicated urinary tract infection H/O recurrent UTIs with ESBL, Pseudomonas Urine culture grew ESBL E. coli Urinary symptoms resolved Completed 10 days of meropenem inpatient Small bowel obstruction Chronic diarrhea possible IBS as per GI evaluation from recent admission --CT ABD:Fluid and gas-filled small bowel loops could represent enteritis or ileus in the appropriate clinical setting. Atrophy of the right kidney. Nonobstructing bilateral renal stones. No hydronephrosis or ureteral stone. Bowel loops are again noted to be bulging along a diastatic anterior abdominal wall just under the skin surface. --Repeat CT abdomen:There is a new small left mid abdominal wall hernia containing a short segment of small bowel. Proximal to this herniated bowel, the proximal jejunum and duodenum of the afferent loop are mildly distended and fluid-filled. Therefore, this is concerning for small bowel obstruction secondary to this bowel containing hernia. Bilateral nephrolithiasis. No ureter al stones. No hydronephrosis. Repeat CT abd 02/10/24 reported no evidence of bowel obstruction, small left mid abd wall bowel containing hernia have been reduced, b/l nephrolithiasis without hydronephrosis Tolerating diet well Reports N, V and abd pain has been recurring since hospitalization 2 months ago On 02/12/24, I discussed her case with Dr Ferguson on the phone. She had a recent EGD from 11/28 which was not remarkable GI recommends symptom mgt/supportive care and outpatient follow up with GI Discharged on po zofran prn Had hypokalemia, hypomagnesemia inpatient requiring repletion Discharged on po magnesium Chronic diastolic heart failure Last EF 55 to 60%, TTE 2022 Monitor volume status Not on diuretics at home Sinus node dysfunction S/P pacemaker Asthma/COPD/ILD, LARRY Pulmonary hypertension Pulmonary status seem to be at baseline Continue home medications CKD II Renal function at baseline Monitor renal function Other chronic conditions: H/O Gastric bypass--- continue home meds Hypothyroidism--continue levothyroxine Chronic anemia--stable H/O Pancreatic insufficiency/malabsorption--continue home meds Mood/anxiety disorder--mood at baseline, continue home meds Chronic pain/neuropathy Chronic headache, possible tension headaches as per neurology H/O MRSA Total Time Total Time Spent Total Time Spent (In Minutes): 40 Total Time Includes: Examination of the Patient, Discharge Planning and Medication Reconciliation Discharge Plan Discharge Items Patient Disposition: Home - Self-Care Reason For Visit: Urinary symptoms, nausea, vomiting Discharge Diagnosis: Complicated urinary tract infection Small bowel obstruction Activity: Resume your previous activity Non-emergency contact: Primary Care Provider and Glass Etcher Call non-emergency contact if: you have any medication questions and your symptoms worsen Follow-up/Referrals: Petra Marx MD [Primary Care Provider] - (Date & Time 02/18/2024 11:20 AM Provider Petra Marx MD Department Family Practice [facility] ) Diet: Lactose Intolerant Addtl Attending Provider Instructions: Ms French Ford came to the hospital complaining of feeling unwell, nausea, vomiting and urinary symptoms. You were managed for the above listed diagnoses. Please ensure follow up with your Family Doctor and Gastroenterology. It was a pleasure taking care of you. Pending Studies at Discharge: No Stand-Alone Forms: My ActionPlanner, Smoking Cessation Medications and DC Order Prescriptions: New acetaminophen 325 mg Tablet 650 mg PO QID PRN (Reason: pain) Qty: 60 0RF oxycodone 5 mg Tablet 5 mg PO Q8H PRN (Reason: severe pain (scale score 7-10)) Qty: 10 0RF Rx Instructions: For severe pain not controlled with tylenol magnesium oxide 400 mg (241.3 mg magnesium) Tablet 400 mg PO QAM Qty: 30 0RF ondansetron 4 mg tablet,disintegrating 4 mg PO TID PRN (Reason: nausea and vomiting) Qty: 20 0RF Continued Prolia 60 mg/mL syringe 60 mg subcut Q180D Qty: 1 1RF duloxetine 30 mg Capsule,Delayed Release(Dr/Ec) 30 mg PO QAM Qty: 30 0RF lamotrigine [Lamictal] 25 mg Tablet 25 mg PO QAM Qty: 30 0RF lamotrigine [Lamictal] 25 mg Tablet 50 mg PO HS Qty: 60 0RF fluticasone propionate 50 mcg/actuation [employer],Suspension 2 spray NA DAILY Qty: 16 0RF ipratropium-albuterol 0.5 mg-3 mg(2.5 mg base)/3 mL Solution For Nebulization 3 ml INHALATION Q4H PRN (Reason: Shortness Of Breath Or Wheezing) Qty: 90 0RF cetirizine 10 mg tablet 10 mg PO DAILY PRN (Reason: Allergy Symptoms) Qty: 30 0RF cyanocobalamin (vitamin B-12) [Vitamin B-12] 1,000 mcg Tablet 1,000 mcg PO DAILY Qty: 30 0RF levothyroxine 88 mcg tablet 88 mcg PO QAM Qty: 30 3RF calcium carbonate [Calcium 600] 600 mg calcium (1,500 mg) tablet 1,200 mg PO DAILY Qty: 60 0RF ropinirole 0.5 mg tablet 0.5 mg PO HS Qty: 30 0RF Rx Instructions: bedtime with food nitroglycerin [Nitrostat] 0.4 mg Tablet, Sublingual 0.4 mg sublingual DIRECTED PRN (Reason: Chest Pain) Qty: 30 0RF Rx Instructions: 1 under tongue as needed for chest pain may repeat up to 3 times. montelukast 10 mg tablet 10 mg PO HS Qty: 30 0RF [id number] Tablet 1 tab PO DAILY Qty: 30 0RF rosuvastatin 10 mg tablet 10 mg PO QAM Qty: 30 0RF omeprazole magnesium 20 mg tablet,delayed release (DR/EC) 20 mg PO BID Qty: 30 0RF Rx Instructions: morning and bedtime Creon 24,000-76,000 -120,000 unit Capsule,Delayed Release(Dr/Ec) 4 cap PO TID Qty: 120 0RF fluticasone furoate-vilanterol [Breo Ellipta] 200-25 mcg/dose Blister With Device 1 inh INHALATION QAM Qty: 60 0RF albuterol sulfate 90 mcg/actuation aerosol powdr breath activated 2 inh INH Q6H PRN (Reason: Shortness Of Breath Or Wheezing) Qty: 1 3RF pregabalin 25 mg capsule 25 mg PO Q8H Qty: 90 0RF calcitriol 0.5 mcg capsule 0.5 mcg PO BID Changed valacyclovir 500 mg Tablet 500 mg PO DAILY Qty: 14 0RF Discharge Orders: Discharge Order (Routine); Ordered 02/14/24 Ordered By: Hortensia Freeman Admission Data Admit Date/Time: 02/04/24 21:24 Attending Provider: Hortensia Freeman I. Admit Provider: Austin Cummings Primary Care Provider: Petra Marx Other Providers: Austin Cummings; Kwame Justice [facility]; Alfredo Casey; Aubrey Chicas
== END 2024-02-14 17:47 | disposition home or self-care (01) | DRG 690 ==
LOC: ED 15:43 → SUATTDRO 21:24 → 3W 21:24

== ENCOUNTER 2024-06-19 17:39 | Inpatient (IN) ==
--- OUTSIDE RECORDS SUMMARY | 2024-06-19 17:47 | External Medical Summary | Summary of Care ---
Author Name Unknown Organization [facility] Address [address] [place] [address] Phone [phone] Care Team Providers Care Health Data Analyst Name Role Phone Petra Marx MD Primary Care Provider Reason for Visit * Reason Onset Date Comments Medication Pre-auth 06/16/2024 Encounter Details Date Type Department Care Team (Late st Contact Info) Description 06/16/2024 Telephone Neurology [facility] [address] [facility] [place] [address] Rani Varela MD [address] [place] [address] Medication Pre-auth Allergies Active Allergy Reactions Criticality Noted Date Comments Aminoglycosides Nebcin Atropine ? allergy to Atropine Cephalosporins Keflin Dipyridamole Persantine Meperidine And Related ? allergy to Demerol Metolazone 10/03/2021 Severe hypokalemia Parasympathomimetics Urecholine Piperacillin Sod-Tazobactam So Rash 02/03 Prochlorperazine Salicylates ASA Sulfa Antibiotics Bactrim Venlafaxine 02/03/2013 Nervous reaction documented as of this encounter (statuses as of 06/16/2024) Medications Medication Sig Dispensed Refills Start Date End Date Status Centrum Silver Oral Tablet Take 1 Tablet by mouth in the morning. 100 Tablet 2 12/26/2022 Active Vitamin B-12 1000 MCG Oral Tablet (Cyanocobalamin) Take 1 Tablet by mouth in the morning. 90 Tablet 12/26/2022 Active Cetirizine HCl 10 MG Oral Tablet (ZyrTEC) Take 0.5 Tablets by mouth at bedtime. 03/12/2023 Active Prolia 60 MG/ML Subcutaneous Solution Prefilled Syringe (Denosumab) Inject 60 mg subcutaneously every 180 days 1 mL 1 07/22/2023 Active Nitroglycerin 0.4 MG Sublingual Tablet Sublingual (Nitrostat) Place 1 Tablet under the tongue as needed for Pain, Chest. May repeat 3 times. If chest pain continues, call 911. 25 Tablet 09/08/2023 Active Albuterol Sulfate HFA 108 (90 Base) MCG/ACT Inhalation Aerosol SolutionIndications :Moderate persistent asthma with exacerbation Inhale 2 Puffs by mouth every 6 hours as needed for Wheezing. 18 g 12/25/2023 Active Calcitriol 0.5 MCG Oral Capsule (Rocaltrol) Take 1 Capsule by mouth in the morning and 1 Capsule before bedtime. 60 Capsule 12/25/2023 Active Ipratropium-Albuter ol 0.5-2.5 (3) MG/3ML Inhalation Solution (Duoneb) Inhale 3 mL via nebulizer every 4 hours as needed for Wheezing. 360 mL 12/25/2023 Active Diclofenac Sodium 1 % External Gel (Voltaren)Indicatio ns:Neck pain Apply topically to affected area 4 times a day as needed (neck pain). Apply to back of neck 150 g 2 12/31/2023 Active DULoxetine HCl 30 MG Oral Capsule Delayed Release Particles (Cymbalta) Take 1 Capsule by mouth in the morning. 90 Capsule 1 01/22/2024 Active Calcium Carb-Cholecalcifero l 600-10 MG-MCG Oral TabletIndications:P ostsurgical malabsorption, not elsewhere classified TAKE TWO TABLETS THREE TIMES A DAY ( AM, NOON & BEDTIME) 180 Tablet 5 01/26/2024 Active oxyCODONE HCl 5 MG Oral Tablet (Oxy IR) Take 1 Tablet by mouth every 8 hours as needed for Pain, Moderate. 02/14/2024 Active Maurice Carbajal In Vitro Strip (Glucose Blood) Test as directed. Use up to 4 x day Active rOPINIRole HCl 0.5 MG Oral Tablet (Requip)Indications :Restless legs syndrome TAKE ONE TABLET BY MOUTH AT BEDTIME 90 Tablet 1 03/24/2024 Active Rosuvastatin Calcium 10 MG Oral Tablet (Crestor) TAKE ONE TABLET BY MOUTH IN THE MORNING 30 Tablet 3 03/24/2024 Active valACYclovir HCl 500 MG Oral Tablet (Valtrex)Indication s:Cold sore TAKE 1 TABLET BY MOUTH EVERY OTHER DAY 45 Tablet 1 03/24/2024 Active Vancomycin HCl 125 MG Oral Capsule (Vancocin)Indicatio ns:Clostridioides difficile infection Take 1 Capsule by mouth every 6 hours. 40 Capsule 03/22/2024 Active Additional Information Patient not taking.Reported on 05/06/2024 Ondansetron HCl 4 MG Oral TabletIndications:N ausea and vomiting, unspecified vomiting type Take 1 Tablet by mouth every 6 hours as needed for Nausea. 30 Tablet 03/23/2024 Active Zinc 25 MG Oral TabletIndications:L ow zinc level Take 1 Tablet by mouth daily. 30 Tablet 11 03/23/2024 Active Famotidine 20 MG Oral Tablet (Pepcid) TAKE ONE TABLET BY MOUTH AT BEDTIME 30 Tablet 2 04/19/2024 Active Montelukast Sodium 10 MG Oral Tablet (Singulair) TAKE ONE TABLET BY MOUTH AT BEDTIME 30 Tablet 2 04/19/2024 Active Omeprazole 20 MG Oral Capsule Delayed Release (PriLOSEC) TAKE ONE CAPSULE EVERY DAY and TAKE ONE CAPSULE AT BEDTIME 60 Capsule 5 04/22/2024 Active lamoTRIgine 25 MG Oral Tablet (LaMICtal) Take 1 tablet in the morning and 2 tablets at bedtime 90 Tablet 2 04/22/2024 Active Metoclopramide HCl 5 MG Oral Tablet (Reglan) TAKE ONE TABLET THREE TIMES DAILY NEEDED FOR NAUSEA AT LEAST 30 MINUTES BEFORE MEALS. 60 Tablet 05/08/2024 Active Creon 04468-48590 UNIT Oral Capsule Delayed Release Particles (Pancrelipase (Csx-Ttqg-Wpkv)) TAKE FOUR CAPSULES THREE TIMES DAILY 720 Capsule 05/09/2024 Active Levothyroxine Sodium 88 MCG Oral Tablet (Levoxyl) Take 1 Tablet by mouth in the morning. 90 Tablet 1 05/20/2024 Active Breo Ellipta 200-25 MCG/ACT Inhalation Aerosol Powder Breath Activated Inhale 1 Puff by mouth daily. 60 Blister Dosing Unit 5 05/24/2024 Active Fluticasone Propionate 50 MCG/ACT Nasal Suspension (Flonase) 2 [address] Nostril daily 16 g 06/02/2024 Active Pregabalin 25 MG Oral Capsule (Lyrica)Indications :Peripheral polyneuropathy TAKE TWO CAPSULES IN THE MORNING and TAKE 2 CAPSULES IN THE EVENING and TAKE TWO CAPSULES AT BEDTIME 180 Capsule 1 06/14/2024 Active Ubrelvy 50 MG Oral Tablet (Ubrogepant) Take 1 tablet at onset of migraine and may repeat in 2 hours if needed. Do not exceed 2 tablets in 24 hours. 10 Tablet 5 06/16/2024 Active documented as of this encounter (statuses as of 06/16/2024) Active Problems Problem Noted Date Diagnosed Date Colon polyps 05/24/2024 Overview: 05/2024. Done at [facility]. Three small. Clostridioides difficile infection 03/23/2024 Chronic diastolic congestive heart failure 11/09 Secondary hyperparathyroidism of renal origin Hypoglycemia 06/29/2023 Last Assessment & Plan: Glucose 103 during visit. Reordered freestyle Larisa-patient had previously. Follows with endocrinology at [facility] Stage 3a chronic kidney disease 04/16/2023 [...] corticosteroids Hypothyroidism 01/13/2023 Hyperparathyroidism 01/13/2023 Age-related osteoporosis [place] current pathological fracture 01/13/2023 Sick sinus syndrome [...] as of this encounter (statuses as of 06/16/2024) Resolved Problems Problem Noted Date Diagnosed Date Resolved Date Major depressive disorder, r ecurrent, in remission 11/09/2023 12/23/2023 COPD, group B, by GOLD 2017 classification [...] rinse after steroid. Test performed by Lazar[employer] FLARE BREAKER CPFT Moderate persistent asthma w ithout complication 10/11/2019 08/09/2021 Overview: In Check dial performed to assess inhaler technique: 11/25/19 Name of inhalers Albuterol Pass: Yes at 40L/min and Trelegy Ellipta Pass: Yes at 35L/min. Encourage to take deep breaths, use aero chamber, and rinse after steroid. Test performed by Lazarus FLARE BREAKER CPFT Ulcer of left lower extremit y, [...] rinse after steroid. Test performed by Lazarus FLARE BREAKER CPFT Groupl B, by GOLD 2017 classification [...] rinse after steroid. Test performed by Lazar[employer] FLARE BREAKER CPFT Acute. Anemia 10/19/2017 08/09/2021 Malabsorption 10/19/2017 [...] as of this encounter (statuses as of 06/16/2024) Immunizations Name Administration Dates Next Due COVID-19 mRNA, LNP-s, No Pre serve, 2-Dose Series (Icecreamlabs) 07/12/2021,05/16/2021,11/18/2020,11/04 COVID-19, LNP-s, No Preserve , Josue-sucrose, Ages 12+ (Icecreamlabs) 05/16/2022 Covid-19, Mrna, Lnp-s, Pf, B ivalent, 30 Mcg, IM, 12 yrs and above (Icecreamlabs) 08/06/2022 Pneumococcal Conjugate Vacc, 13 Valent (Prevnar) 05/21/2018 Pneumococcal Polysaccharide PPV23 (Pneumovax) 07/06/2019 Seasonal Influenza, Quadriva lent Hd (Fluzone Hd) 06/09/2023,06/12/2022 Seasonal Influenza, Quadriva lent Hd, 65+ Yrs 06/26/2020 Seasonal Influenza, Quadriva lent, No Preserve, IM 08/05/2018 Seasonal Influenza, Trivalen t, Adjuvanted, 65+ YRS, PF, (Fluad) 07/06/2019 Zoster Vaccine Recombinant (Shingrix) 04/11/2020 ,10/11/2019 [...] money to get more. Never true 11/19/2023 Childcare Answer Date Recorded Do you feel overwhelmed with taking care of a child, family member or friend? No 11/19/2023 Does your family need help f inding childcare? (Household - for ages 0-17 years) Not on file 11/19/2023 Clothing Answer Date Recorded Have you been unable to get clothing when it was really needed? No 11/19/2023 Is your family able to get c lothes or diapers when needed? (Household - for ages 0-17 years) Not on file 11/19/2023 Personal Safety Answer Date Recorded Do you feel unsafe or have concerns for your saf ety? No 11/19/2023 Do you have concerns for you r family's safety? (Household - for ages 0-17 years) Not on file 11/19/2023 Utilities Answer Date Recorded Do you have trouble paying y our heating, water, or electric bill? No 11/19/2023 Is your family able to pay t he heat, water, or electric bill? (Household - for ages 0-17 years) Not on file 11/19/2023 Does your family have access to good internet? (Household - for ages 0-17 years) Not on file 11/19/2023 Employment Status Answer Date Recorded Are you unemployed or without regular income? No 11/19/2023 Does the household have a re gular source of income? (Household - for ages 0-17 years) Not on file 11/19/2023 Social Connections Answer Date Recorded How often do you feel lonely or isolated from th ose around you? Never 11/19/2023 Financial Resource Strain Answer Date R ecorded Do you have any trouble payi ng for your medications, or do you think you might in the future? No 11/19/2023 Does your family have troubl e paying for medicine? (Household - for ages 0-17 years) Not on file 11/19/2023 Transportation Needs Answer Date Record ed READ ONLY Do you have troubl e getting a ride to medical visits or work? Never True 11/19/2023 Does your family have a hard time getting a ride to doctors visits? (Household - for ages 0-17 years) Not on file 11/19/2023 Has lack of transportation k ept you from medical appointments, meetings, work, or from getting things needed for daily living? Check all that apply. (Adult - for ages 18 years and over) Not on file 11/19/2023 Do you (or your family) have trouble finding or paying for a ride (transportation)? (Household - for ages 0-17 years) Not on file 11/19/2023 Housing Stability Answer Date Recorded Do you currently live in a s helter or have no steady place to sleep at night? No 11/19/2023 READ ONLY Do you think you a re at risk of becoming homeless? No 11/19/2023 Does your family worry about paying for your home or becoming homeless? (Household - for ages 0-17 years) Not on file 0 11/19/2023 Are you homeless or worried that you might be in the future? (Adult - for ages 18 years and over) Not on file Are you (or your family) destinee eless or worried that you might be in the future? (Household - for ages 0-17 years) Not on file Food Insecurity Answer Date Recorded Do you need food for this week? No 11/19/2023 Are you able to get enough f ood for your family? (Household - for ages 0-17 years) Not on file 11/19/2023 Does your family need food t his week? (Household - for ages 0-17 years) Not on file 11/19/2023 Do you always have enough fo od for your family? (Household - for ages 0-17 years) Not on file 11/19/2023 Sex and Gender Information Value Date Recorded Sex Assigned at Female 09/03/2022 1:25 PM EST Gender Identity Female 09/03/2022 1:25 PM EST Sexual Orientation Straight 09/03/2022 1: 25 PM EST Job Start Date Occupation Industry Not on file Not on file Not on file documented as of this encounter Miscellaneous Notes * Telephone Encounter - Roshni Parks MED ASSIST - 06/16/2024 1:18 PM EDT Neurology Pre-Cert Request Medication/Disease State Information: Medication: Ubrelvy 50 mg- take one tablet at onset of migraine and may repeat in 2 hours if needed. Do not exceed 2 tablets in 24 hours. Diagnosis (including ICD-10): Migraine - Chronic Migraine G43.709 - Self- administered - route pre-cert request to [id number] See corresponding visit note(s) for additional supporting clinical information. Office Information: Prescriber: Rani Varela MD documented in this encounter Plan of Treatment Upcoming Encounters Date Type Department Care Team (Late st Contact Info) Description 06/22/2024 11:40 AM EDT Office Visit Family Practice [facility] [address] [address] Petra Marx MD [address] [place] [address] 06/23/2024 10:00 AM EDT Office Visit Neurology [facility] [address] [place] [address] Rani Varela MD [address] [facility] [place] [address] 06/30/2024 12:30 PM EDT Home Visit [facility] [address] [address] Sally Bonilla, RANDELL [address] [address] 07/04/2024 10:30 AM EDT Office Visit Sleep Disorders Ctr [facility] [address] [address] Andria Goldstein CRNP [address] [place] [address] 07/11/2024 2:00 PM EDT Scheduled Telephone Interventional Pain Center, [facility] [address] [place] [address] C[place], Nurse Phone Call Interventional Pain [place] [address] [address] [place] [address] 07/27/2024 12:45 PM EDT Immunization/Injec tion Hematology/Oncology Treatment, [place] [address] [place] [phone] Jolanta, Chair 2 Hem Onc [address]en[address] [place] [address] 08/03/2024 12:00 PM EDT Office Visit Family [facility] [address] [place] [address] Petra Marx MD [address] [address] 08/19/2024 10:00 AM EST Office Visit Family Practice [facility] [address] [place] [address] Petra Marx MD [address] [address] 08/30/2024 12:00 PM EST Office Visit Gastroenterology, [facility] [address] [address] Breann Jerome CRNP [address] [place] [address] 09/14/2024 11:00 AM EST Nurse Only Ancillary [address] [place] [address] [place], Nurse Annual [address] [place] [address] 02/02/2025 12:30 PM EDT Imaging Radiology [address] [place] [address] Health Maintenance Due Date Last Done Comments Cologuard 1997 Sigmoidoscopy 1997 Fecal Occult Blood Test 08/09/2011 08/09/20 10, 11/14/2009, 12/16/2007, Additional history exists Albumin/Creatinine Ratio 05/01/2024 05/01/2023, 03/05 Influenza Vaccine (FLU shot) (#1) 2024 06/09/2023, 06/12/2022, 06/26/2020, Additional history exists Adult Wellness Visit 09/08/2024 09/08/2023, 09/03/2022, 05/27/2021 Depression Monitoring 09/08/2024 09/08/2023 GFR 09/30/2024 03/31/2024, 03/05, 02/18/2024, Additional history exists TSH 10/31/2024 10/31/2023, 12/0 02/2023, 07/30/2022, Additional history exists Mammogram 01/31/2025 02/01/2024, 04/06/2024, 01/29/2023, Additional history exists CKD HGB USE SMARTSET 34485 03/17/202503/17, 03/17/2024, 12/25/2023, Additional history exists CKD PHOS USE SMARTSET 51416 03/17/202503/05, 02/18/2024, 05/01/2023, Additional history exists O2 ASSESSMENT COMPLETED IN PAST YEAR FOR COPD 05/30/2025 05/30/2024 DXA Scan 07/23/2025 07/23/2023, 07/05, 03/18/2022, Additional history exists DTap/Tdap Vaccines (2 - Td or Tdap) 05/21/2028 05/21/2018 (Declined) Colonoscopy 05/04/2034 05/04/2024, 04/06, 08/11/2016 Colorectal Cancer Screening 05/04/2034 Pneumococcal Vaccine: 65+ Years Completed 07/06/2019, 05/21/2018 Zoster Vaccines Completed 04/11/2020, 10/11/2019 Alpha-1 Antitrypsin Completed 06/18/2020 COVID-19 Vaccine Discontinued 07/01/2023, 11/2021, 05/16/2022, Additional history exists VITAMIN D LEVEL ONCE IN A LIFETIME-USE SMARTSET# [id number] Completed 02/18/2024, 05/01/2023, 12/28/2014, Additional history exists HPV (Gardasil) Vaccine Aged Out No lo nger eligible based on patient's age to complete this topic Hepatitis B Vaccine Aged Out No longe r eligible based on patient's age to complete this topic MENINGOCOCCAL (MENACTRA/MENVEO) Aged Out No longer eligible based on patient's age to complete this topic documented as of this encounter Medical Devices Implanted Type Area Steamer Blocker Device Identifier Shelf Expiration Date Model / Serial / Lot Port Power Mri W/8fr Cath - [id number] Implanted:Qty : 1 on 11/02/2017 by Ignacio Guevara MD at OR [facility] Right: Internal Jugular CR BARD : PERIPHERAL VASCULAR 07/04/2019 [id number] / / [id number] documented as of this encounter Advance Directives Healthcare Agents on File Name Relationship Healthcare Agent Relationship Communication Ivonne Michelle Other - (no specific identity) Health Care Agent Care Teams Health Data Analyst Relationship Specialty Start Date End Date Petra Marx MD [address] [place] [address] PCP - General Internal Medicine 11/09/23 documented as of this encounter
--- OUTSIDE RECORDS SUMMARY | 2024-06-19 17:47 | External Medical Summary | Summary of Care ---
Author Name Unknown Organization [facility] Address [address] [place] [address] Phone [phone] Care Team Providers Care Corporate Buyer Name Role Phone Petra Marx MD Primary Care Provider Reason for Visit * Reason Onset Date Comments Medication Pre-auth 06/16/2024 Encounter Details Date Type Department Care Team (Late st Contact Info) Description 06/16/2024 Telephone Neurology [facility] [address] [facility] [place] [address] Rani Varela MD [address] [place] [address] Medication Pre-auth Allergies Active Allergy Reactions Criticality [...] BEFORE MEALS. 60 Tablet 05/08/2024 Active Creon 41230-89704 UNIT Oral Capsule Delayed Release Particles (Pancrelipase (Jfs-Sjlr-Jubs)) TAKE FOUR CAPSULES THREE TIMES DAILY 720 [...] Colon polyps 05/24/2024 Overview: 05/2024. Done at [facility]. Three small. Clostridioides difficile infection 03/23/2024 Chronic diastolic congestive heart failure 11/09 Secondary hyperparathyroidism of renal origin Hypoglycemia 06/29/2023 Last Assessment & Plan: Glucose 103 during visit. Reordered freestyle Larisa-patient had previously. Follows with endocrinology at [facility] Stage 3a chronic kidney disease 04/16/2023 COPD, [...] rinse after steroid. Test performed by [employer] SPREADING MACHINE OPERATOR CPFT Moderate persistent asthma w ithout complication 10/11/2019 08/09/2021 Overview: In Check dial performed to assess inhaler technique: 11/25/19 Name of inhalers Albuterol Pass: Yes at 40L/min and Trelegy Ellipta Pass: Yes at 35L/min. Encourage to take deep breaths, use aero chamber, and rinse after steroid. Test performed by [employer] SPREADING MACHINE OPERATOR CPFT Ulcer of left lower [...] rinse after steroid. Test performed by [employer] SPREADING MACHINE OPERATOR CPFT Groupl B, by GOLD [...] rinse after steroid. Test performed by [employer] SPREADING MACHINE OPERATOR CPFT Acute. Anemia 10/19/2017 08/09/2021 [...] mRNA, LNP-s, No Pre serve, 2-Dose Series (Signiant) 07/12/2021,05/16/2021,11/18/2020,11/04 COVID-19, LNP-s, No Preserve , Josue-sucrose, Ages 12+ (Signiant) 05/16/2022 Covid-19, Mrna, Lnp-s, Pf, B ivalent, 30 Mcg, IM, 12 yrs and above (Signiant) 08/06/2022 Pneumococcal Conjugate Vacc, 13 Valent (Prevnar) [...] Self- administered - route pre-cert request to [id number] See corresponding visit note(s) for additional supporting clinical information. Office Information: Prescriber: Rani Varela MD documented in this encounter Plan of Treatment Upcoming Encounters Date Type Department Care Team (Late st Contact Info) Description 06/22/2024 11:40 AM EDT Office Visit Family Practice [facility] [address] [address] Petra Marx MD [address] [address] 06/23/2024 10:00 AM EDT Office Visit Neurology [facility] [address] [place] [address] Rani Varela MD [address] [facility] [place] [address] 06/30/2024 12:30 PM EDT Home Visit [facility] [address] [address] Sally Bonilla, RANDELL [address] [address] 07/04/2024 10:30 AM EDT Office Visit Sleep Disorders Ctr [facility] [address] [address] Andria Goldstein CRNP [address] [place] [address] 07/11/2024 2:00 PM EDT Scheduled Telephone Interventional Pain Center, [facility] [address] [place] [address] [place], Nurse Phone Call Interventional Pain [place] [address] [address] [place] [address] 07/27/2024 12:45 PM EDT Immunization/Injec tion Hematology/Oncology Treatment, [place] [address] [place] [address] Jolanta, Chair 2 Hem Onc Scenery [address] [place] [address] 08/03/2024 12:00 PM EDT Office Visit Family [facility] [address] [place] [address] Petra Mrax MD [address] [address] 08/19/2024 10:00 AM EST Office Visit Family Practice [facility] [address] [place] [address] Petra Marx MD [address] [address] 08/30/2024 12:00 PM EST Office Visit Gastroenterology, [facility] [address] [address] Breann Jerome CRNP [address] [place] [address] 09/14/2024 11:00 AM EST Nurse Only Ancillary [address] [place] [address] [place], Nurse Annual [address] [place] [address] 02/02/2025 12:30 PM EDT Imaging Radiology [address] [place] [address] Health Maintenance Due Date Last Done Comments [...] Additional history exists CKD HGB USE SMARTSET 91607 03/17/202503/17, 03/17/2024, 12/25/2023, Additional history exists CKD PHOS USE SMARTSET 29994 03/17/202503/05, 02/18/2024, 05/01/2023, Additional history exists O2 [...] D LEVEL ONCE IN A LIFETIME-USE SMARTSET# 56285 Completed 02/18/2024, 05/01/2023, 12/28/2014, Additional history exists [...] this encounter Medical Devices Implanted Type Area Junction Maker Device Identifier Shelf Expiration Date Model / Serial / Lot Port Power Mri W/8fr Cath - [id number] Implanted:Qty : 1 on 11/02/2017 by Ignacio Guevara MD at OR [facility] Right: Internal Jugular CR BARD : PERIPHERAL VASCULAR 07/04/2019 [id number] / / [id number] documented as of this encounter Advance Directives Healthcare Agents on File Name Relationship Healthcare Agent Relationship Communication Ivonne Michelle Other - (no specific identity) Health Care Agent Care Teams Corporate Buyer Relationship Specialty Start Date End Date Petra Marx MD [address] [place] [address] PCP - General Internal Medicine 11/09/23 documented as of this encounter
--- OUTSIDE RECORDS SUMMARY | 2024-06-19 17:47 | External Medical Summary | Summary of Care ---
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] Procedures DESTROY LUMBAR SACRAL NERVE IMAGING SINGLE DESTROY LUMBAR SACRAL NERVE IMAGING ADD'L DESTROY LUMBAR SACRAL NERVE IMAGING SINGLE DESTROY LUMBAR SACRAL NERVE IMAGING ADD'L Yared Bennett DO [address] [place] [phone] Or [facility] [address] [place] [phone] Referral ID Status Reason Start Date Expiration Date Visits Re quested Visits Authorized [id number] Encounter Details Date Type Department Care Team (Late st Contact Info) Description 06/15/2024 12:45 PM EDT Immunization/I njection Hematology/Oncology Treatment, [place] [address] [place] [phone] Jolanta, Chair 7 Hem Onc [facility] [id number] Medical home patient encounter* Allergies Active Allergy Reactions Criticality Noted Date Comments Aminoglycosides Nebcin Atropine ? allergy to Atropine Cephalosporins Keflin Dipyridamole Persantine Meperidine And Related ? allergy to Demerol Metolazone 10/03/2021 Severe hypokalemia Parasympathomimetics Urecholine Piperacillin Sod-Tazobactam So Rash 02/03 Prochlorperazine Salicylates ASA Sulfa Antibiotics Bactrim Venlafaxine 02/03/2013 Nervous reaction documented as of this encounter (statuses as of 06/15/2024) Medications Medication Sig Dispensed Refills Start Date [...] as needed for Pain, Moderate. 02/14/2024 Active ManpreetTouch Verio In Vitro Strip (Glucose Blood) Test as [...] BEFORE MEALS. 60 Tablet 05/08/2024 Active Creon 23268-07627 UNIT Oral Capsule Delayed Release Particles (Pancrelipase (Mzq-Qhsv-Hpem)) TAKE FOUR CAPSULES THREE TIMES DAILY 720 [...] Via Nostril daily 16 g 06/02/2024 Active Reyvow 50 MG Oral Tablet (Lasmiditan Succinate) 1 at onset of migraine, max 1 dose in 24 hours 10 Tablet 1 06/03/2024 Active Pregabalin 25 MG Oral Capsule (Lyrica)Indications :Peripheral polyneuropathy TAKE TWO CAPSULES IN THE MORNING and TAKE 2 CAPSULES IN THE EVENING and TAKE TWO CAPSULES AT BEDTIME 180 Capsule 1 06/14/2024 Active documented as of this encounter (statuses as of 06/15/2024) Active Problems Problem Noted Date Diagnosed Date Colon polyps 05/24/2024 Overview: 05/2024. Done at [facility]. Three small. Clostridioides difficile infection 03/23/2024 Chronic diastolic congestive heart failure 11/09 Secondary hyperparathyroidism of renal origin Hypoglycemia 06/29/2023 Last Assessment & Plan: Glucose 103 during visit. Reordered freestyle Larisa-patient had previously. Follows with endocrinology at [facility] Stage 3a chronic kidney disease 04/16/2023 [...] as of this encounter (statuses as of 06/15/2024) Resolved Problems Problem Noted Date Diagnosed Date [...] rinse after steroid. Test performed by Lazarus CHANNEL PROCESS PLANT OPERATOR CPFT Moderate persistent asthma w ithout complication 10/11/2019 08/09/2021 Overview: In Check dial performed to assess inhaler technique: 11/25/19 Name of inhalers Albuterol Pass: Yes at 40L/min and Trelegy Ellipta Pass: Yes at 35L/min. Encourage to take deep breaths, use aero chamber, and rinse after steroid. Test performed by Lazarus CHANNEL PROCESS PLANT OPERATOR CPFT Ulcer of left lower extremit [...] rinse after steroid. Test performed by Lazarus CHANNEL PROCESS PLANT OPERATOR CPFT Groupl B, by GOLD 2017 [...] rinse after steroid. Test performed by Lazarus CHANNEL PROCESS PLANT OPERATOR CPFT Acute. Anemia 10/19/2017 08/09/2021 Malabsorption [...] as of this encounter (statuses as of 06/15/2024) Immunizations Name Administration Dates Next Due COVID-19 mRNA, LNP-s, No Pre serve, 2-Dose Series ([employer]) 07/12/2021,05/16/2021,11/18/2020,01/31 /2021 COVID-19, LNP-s, No Preserve , Josue-sucrose, Ages [...] No 11/19/2023 Does the household have a [facility] source of income? (Household - for ages [...] on file documented as of this encounter Nursing Notes * Ruth Pulido RN - 06/15/2024 1:29 PM EDT Patient to chair 4 ambulatory Patient voices no complaints or concerns. Patient did hit left alberto area getting walker out of car,bleeding controlled after being addressed by staff in waiting area. Dressing removed, bleeding controlled, approximately quarter size "V" shape laceration; patient did not want to go get checked at ED for possible sutures. Area was redressed and education given on sign and symptoms of infection andto keep clean with soap and water. Patient verbalized understanding. Safety and Risk for Injury Patient will remain free from injury. Ensure appropriate safety devices are available. Provide and maintain safe environment. Patient instructed on use of heat and massage functions where applicable. Patient shown how to operate the heat function of the chair and to alert nursing staff if the chair feels too warm. Patient instructed on the risk of potential coats while using the heat function. Goals: patient will remain free of injury Possible barriers to meeting goals: ambulation using walker, increase risk of fall Stability of the patient: Moderately stable - low risk of patient condition declining or worsening Summary regarding today's goals: Met: patient remained free of injury VAD (Venous Access Device) accessed with #20G 3/4" without difficulty. Flushed easy, positive bloodreturn. VAD flushed with 10 ml NSS and Heparin 5 ml (100 units/ml). Mak needle removed intact. Patient discharged in good condition, tolerated well. documented in this encounter Plan of Treatment Upcoming Encounters Date Type Department Care Team (Late st Contact Info) Description 06/22/2024 11:40 AM EDT Office Visit Family Practice [facility] [address] [place] [address] Petra Marx MD [address] [place] [address] 06/23/2024 10:00 AM EDT Office Visit Neurology [facility] 200 [facility] [place] [address] Rani Varela MD 200 [facility] [address] 06/30/2024 12:30 PM EDT Home Visit [facility] [address] [place] [address] Sally Bonilla RN 132 [facility] [place] [address] 07/04/2024 10:30 AM EDT Office Visit Sleep Disorders Ctr [facility] [address] [place] [phone] Andria Goldstein CRNP [address] [place] [address] 07/11/2024 2:00 PM EDT Scheduled Telephone Interventional Pain Center, [facility] [address] [place] [address] Darryn Nurse Phone Call Interventional Pain Reji 132 [place] [address] 07/27/2024 12:45 PM EDT Immunization/Injec tion Hematology/Oncology Treatment, [place] [address] [place] [phone] Park, Chair 2 Hem Onc Scenery [address] [place] [address] 08/03/2024 12:00 PM EDT Office Visit Family Practice [facility] [address] [place] [address] Petra Marx MD 132 [place] [address] 08/19/2024 10:00 AM EST Office Visit Family Practice [facility] [address] [place] [address] Petra Marx MD [address] [place] [address] 08/30/2024 12:00 PM EST Office Visit Gastroenterology, [facility] [address] [place] [address] Breann Jerome CRNP [address] [place] [address] 09/14/2024 11:00 AM EST Nurse Only Ancillary [address] [place] [address] Parvez Nurse [address] [place] [address] 02/02/2025 12:30 PM EDT Imaging Radiology [address] [place] [address] Health Maintenance Due Date Last Done Comments [...] 07/30/2022, Additional history exists Mammogram 01/31/2025 02/01/2024, 01/04, 01/29/2023, Additional history exists CKD HGB USE SMARTSET 80305 03/17/202503/17, 03/17/2024, 12/25/2023, Additional history exists CKD PHOS USE SMARTSET 20247 03/17/202503/05, 02/18/2024, 05/01/2023, Additional history exists O2 [...] D LEVEL ONCE IN A LIFETIME-USE SMARTSET# 86604 Completed 02/18/2024, 05/01/2023, 12/28/2014, Additional history exists [...] this encounter Medical Devices Implanted Type Area Typewriter Mechanic Device Identifier Shelf Expiration Date Model / Serial / Lot Port Power Mri W/8fr Cath - [id number] Implanted:Qty : 1 on 11/02/2017 by Ignacio Guveara MD at OR [facility] Right: Internal Jugular CR BARD : PERIPHERAL VASCULAR 07/04/2019 [id number] / / [id number] documented as of this encounter Visit Diagnoses Diagnosis Medical home patient encounter- Primary Other specified examination documented in this encounter Administered Medications Active Administered Medications - up to 3 most recent administrations Medication Order MAR Action Action Date Dose Rate Site hEParin 100 UNIT/ML Lock Flush inj 500 Units 500 Units (5 mL), IV Lock, PRN Other, IV Flush, Starting on Thu06/15/24 at 1249, Until Luzmaria 06/16/24 at 1248, For 24 hours, Do not flush if lock, PICC, or central line not in place; IV infusing or unable to flush. Given 06/15/2024 12:59 PM EDT 500 Units sodium chloride 0.9 % flush central line 10 mL 10 mL, IV Push, PRN Other, IV Flush, Starting on Thu06/15/24 at 1249, Until Luzmaria 06/16/24 at 1248, For 24 hours, Do not flush if lock, PICC, or central line not in place; IV infusing or unable to flush. Given 06/15/2024 12:58 PM EDT 10 mL documented in this encounter Advance Directives Healthcare Agents on File Name Relationship Healthcare Agent Relationship Communication Ivonne Martinez Other - (no specific identity) Health Care Agent Care Teams Correctional Casework Specialist Relationship Specialty Start Date End Date Petra Marx MD [address] [place] [address] PCP - General Internal Medicine 11/09/23 documented as of this encounter
--- OUTSIDE RECORDS SUMMARY | 2024-06-19 17:47 | External Medical Summary | Summary of Care ---
Author Name Unknown Organization [facility] Address [address] [place] [address] Phone [phone] Care Team Providers Care Parachute Packer Name Role Phone Petra Marx MD Primary Care Provider Reason for Visit * Reason Comments eRx-Medication Refill Encounter Details Date Type Department Care Team (Late st Contact Info) Description 06/13/2024 Refill Neurology [facility] [address] [place] [address] Rani Jean MD [address] [facility] [place] [address] Peripheral polyneuropathy Allergies Active Allergy Reactions Criticality Noted Date Comments Aminoglycosides Nebcin Atropine ? allergy to Atropine Cephalosporins Keflin Dipyridamole Persantine Meperidine And Related ? allergy to Demerol Metolazone 10/03/2021 Severe hypokalemia Parasympathomimetics Urecholine Piperacillin Sod-Tazobactam So Rash 02/03 Prochlorperazine Salicylates ASA Sulfa Antibiotics Bactrim Venlafaxine 02/03/2013 Nervous reaction documented as of this encounter (statuses as of 06/14/2024) Medications Medication Sig Dispensed Refills Start Date End Date Status Centrum Silver Oral Tablet Take 1 Tablet by mouth in the morning. 100 Tablet 2 12/27/19 23 Active Vitamin B-12 1000 MCG Oral Tablet (Cyanocobalamin) Take 1 Tablet by mouth in the morning. 90 Tablet 12/27/19 23 Active Cetirizine HCl 10 MG Oral Tablet (ZyrTEC) Take 0.5 Tablets by mouth at bedtime. 03/12/20 23 Active Prolia 60 MG/ML Subcutaneous Solution Prefilled Syringe (Denosumab) Inject 60 mg subcutaneously every 180 days 1 mL 1 07/22/20 23 Active Nitroglycerin 0.4 MG Sublingual Tablet Sublingual (Nitrostat) Place 1 Tablet under the tongue as needed for Pain, Chest. May repeat 3 times. If chest pain continues, call 911. 25 Tablet 09/08/20 23 Active Albuterol Sulfate HFA 108 (90 Base) MCG/ACT Inhalation Aerosol SolutionIndication s:Moderate persistent asthma with exacerbation Inhale 2 Puffs by mouth every 6 hours as needed for Wheezing. 18 g 12/25/19 24 Active Calcitriol 0.5 MCG Oral Capsule (Rocaltrol) Take 1 Capsule by mouth in the morning and 1 Capsule before bedtime. 60 Capsule 12/25/19 24 Active Ipratropium-Albute rol 0.5-2.5 (3) MG/3ML Inhalation Solution (Duoneb) Inhale 3 mL via nebulizer every 4 hours as needed for Wheezing. 360 mL 12/25/19 24 Active Diclofenac Sodium 1 % External Gel (Voltaren)Indicati ons:Neck pain Apply topically to affected area 4 times a day as needed (neck pain). Apply to back of neck 150 g 2 12/31/19 24 Active DULoxetine HCl 30 MG Oral Capsule Delayed Release Particles (Cymbalta) Take 1 Capsule by mouth in the morning. 90 Capsule 1 01/22/20 24 Active Calcium Carb-Cholecalcifer ol 600-10 MG-MCG Oral TabletIndications: Postsurgical malabsorption, not elsewhere classified TAKE TWO TABLETS THREE TIMES A DAY ( AM, NOON & BEDTIME) 180 Tablet 5 01/26/20 24 Active oxyCODONE HCl 5 MG Oral Tablet (Oxy IR) Take 1 Tablet by mouth every 8 hours as needed for Pain, Moderate. 02/14/20 24 Active OneTouch Verio In Vitro Strip (Glucose Blood) Test as directed. Use up to 4 x day Active rOPINIRole HCl 0.5 MG Oral Tablet (Requip)Indication s:Restless legs syndrome TAKE ONE TABLET BY MOUTH AT BEDTIME 90 Tablet 1 03/24/20 24 Active Rosuvastatin Calcium 10 MG Oral Tablet (Crestor) TAKE ONE TABLET BY MOUTH IN THE MORNING 30 Tablet 3 03/24/20 24 Active valACYclovir HCl 500 MG Oral Tablet (Valtrex)Indicatio ns:Cold sore TAKE 1 TABLET BY MOUTH EVERY OTHER DAY 45 Tablet 1 03/24/20 24 Active Vancomycin HCl 125 MG Oral Capsule (Vancocin)Indicati ons:Clostridioides difficile infection Take 1 Capsule by mouth every 6 hours. 40 Capsule 03/22/20 24 Active Additional Information Patient not taking.Reported on 05/06/2024 Ondansetron HCl 4 MG Oral TabletIndications: Nausea and vomiting, unspecified vomiting type Take 1 Tablet by mouth every 6 hours as needed for Nausea. 30 Tablet 03/23/20 24 Active Zinc 25 MG Oral TabletIndications: Low zinc level Take 1 Tablet by mouth daily. 30 Tablet 11 03/23/20 24 Active Famotidine 20 MG Oral Tablet (Pepcid) TAKE ONE TABLET BY MOUTH AT BEDTIME 30 Tablet 2 04/19/20 24 Active Montelukast Sodium 10 MG Oral Tablet (Singulair) TAKE ONE TABLET BY MOUTH AT BEDTIME 30 Tablet 2 04/19/20 24 Active Omeprazole 20 MG Oral Capsule Delayed Release (PriLOSEC) TAKE ONE CAPSULE EVERY DAY and TAKE ONE CAPSULE AT BEDTIME 60 Capsule 5 04/22/20 24 Active lamoTRIgine 25 MG Oral Tablet (LaMICtal) Take 1 tablet in the morning and 2 tablets at bedtime 90 Tablet 2 04/22/20 24 Active Metoclopramide HCl 5 MG Oral Tablet (Reglan) TAKE ONE TABLET THREE TIMES DAILY NEEDED FOR NAUSEA AT LEAST 30 MINUTES BEFORE MEALS. 60 Tablet 05/08/20 24 Active Creon 79132-23627 UNIT Oral Capsule Delayed Release Particles (Pancrelipase (Sqo-Gncg-Lgtc)) TAKE FOUR CAPSULES THREE TIMES DAILY 720 Capsule 05/09/20 24 Active Levothyroxine Sodium 88 MCG Oral Tablet (Levoxyl) Take 1 Tablet by mouth in the morning. 90 Tablet 1 05/20/20 24 Active Breo Ellipta 200-25 MCG/ACT Inhalation Aerosol Powder Breath Activated Inhale 1 Puff by mouth daily. 60 Blister Dosing Unit 5 05/24/20 24 Active Fluticasone Propionate 50 MCG/ACT Nasal Suspension (Flonase) 2 spray Via Nostril daily 16 g 06/02/20 24 Active Reyvow 50 MG Oral Tablet (Lasmiditan Succinate) 1 at onset of migraine, max 1 dose in 24 hours 10 Tablet 1 06/03/20 24 Active Pregabalin 25 MG Oral Capsule (Lyrica)Indication s:Peripheral polyneuropathy TAKE TWO CAPSULES IN THE MORNING and TAKE 2 CAPSULES IN THE EVENING and TAKE TWO CAPSULES AT BEDTIME 180 Capsule 1 06/14/20 24 Active Pregabalin 25 MG Oral Capsule (Lyrica)Indication s:Peripheral polyneuropathy 2 in the am, 1 in the afternoon, 1 in the evening x 1 week then 2 in the morning 2 in the afternoon 1 in the evening x 1 week then 2 three times a day 180 Capsule 1 04/01/20 24 024 Discontinued documented as of this encounter (statuses as of 06/14/2024) Active Problems Problem Noted Date Diagnosed Date Colon polyps 05/24/2024 Overview: 05/2024. Done at [facility]. Three small. Clostridioides difficile infection 03/23/2024 Chronic [...] as of this encounter (statuses as of 06/14/2024) Resolved Problems Problem Noted Date Diagnosed Date [...] rinse after steroid. Test performed by Lazarus PNEUMATIC SYSTEM CONVEYOR OPERATOR CPFT Moderate persistent asthma w ithout complication 10/11/2019 08/09/2021 Overview: In Check dial performed to assess inhaler technique: 11/25/19 Name of inhalers Albuterol Pass: Yes at 40L/min and Trelegy Ellipta Pass: Yes at 35L/min. Encourage to take deep breaths, use aero chamber, and rinse after steroid. Test performed by Lazarus PNEUMATIC SYSTEM CONVEYOR OPERATOR CPFT Ulcer of left lower extremit [...] rinse after steroid. Test performed by Lazarus PNEUMATIC SYSTEM CONVEYOR OPERATOR CPFT Groupl B, by GOLD 2017 [...] rinse after steroid. Test performed by Lazarus PNEUMATIC SYSTEM CONVEYOR OPERATOR CPFT Acute. Anemia 10/19/2017 08/09/2021 Malabsorption [...] as of this encounter (statuses as of 06/14/2024) Immunizations Name Administration Dates Next Due COVID-19 mRNA, LNP-s, No Pre serve, 2-Dose Series ([employer]) 07/12/2021,05/16/2021,11/18/2020,11/04 COVID-19, LNP-s, No Preserve , Josue-sucrose, Ages 12+ ([employer]) 05/16/2022 Covid-19, Mrna, Lnp-s, Pf, B ivalent, 30 Mcg, IM, 12 yrs and above ([employer]) 08/06/2022 Pneumococcal Conjugate Vacc, 13 Valent (Prevnar) [...] encounter Miscellaneous Notes * Telephone Encounter - Rani Jean MD - 06/14/2024 9:57 AM EDTSigned Prescriptions: Disp Refills Pregabalin 25 MG Oral Capsule (Lyrica) 180 Ca*1 Sig: TAKE TWO CAPSULES IN THE MORNING and TAKE 2 CAPSULES IN THE EVENING and TAKE TWO CAPSULES AT BEDTIME Authorizing Provider: RANI JEAN * Telephone Encounter - Roshni Parks, MED ASSIST - 06/14/2024 8:56 AM EDT Pending Prescriptions: Disp Refills Pregabalin 25 MG Oral Capsule [Pharmacy Me*180 Ca*1 Sig: TAKE TWO CAPSULES IN THE MORNING and TAKE 2 CAPSULES IN THE EVENING and TAKE TWO CAPSULES AT BEDTIME * Telephone Encounter - Stefany Mccarthy - 06/13/2024 7:43 PM EDTPending Prescriptions: Disp Refills Pregabalin 25 MG Oral Capsule [Pharmacy Me*180 Ca*1 Sig: TAKE TWO CAPSULES IN THE MORNING and TAKE 2 CAPSULES IN THE EVENING and TAKE TWO CAPSULES AT BEDTIME * Telephone Encounter - Stefany Mccarthy - 06/13/2024 7:41 PM EDT Did you pend patient's preferred pharmacy and medication before forwarding?yes Pharmacy: [facility], [address] [place] Pending Prescriptions: Disp Refills Pregabalin 25 MG Oral Capsule (Lyrica) [P*180 Ca*1 Sig: TAKE TWO CAPSULES IN THE MORNING and TAKE 2 CAPSULES IN THE EVENING and TAKE TWO CAPSULES AT BEDTIME Last Visit: 04/01/2024 (in office), Visit date not found (telemedicine) Next Visit: 06/23/2024 If no future appointments scheduled, and last appointment is greater than a year ago, please schedule patient for a follow-up appointment Last date the medication was ordered: 04/01/2024 Is this request for a controlled substance?Yes and urine drug screen was not completed Urine Drug Screen:No results found. However, due to the size of the patient record, not all encounters were searched. Please check Results Review for a complete set of results. Patient Phone Numbers Labs: Lab Results Component Value Date/Time CREAT 1.1 (H) 03/31/2024 12:07 PM CREAT 1.35 11/04/2023 12:00 AM CREAT 1.2 (H) 08/22/2020 11:19 AM CREAT 0.7 08/11/1996 12:20 PM POTASSIUM 4.1 03/31/2024 12:07 PM POTASSIUM 4.1 11/04/2023 12:00 AM POTASSIUM 4.3 06/22/2020 12:21 PM POTASSIUM 4.5 08/11/1996 12:20 PM TSH 1.438 10/31/2023 12:00 AM TSH 2.99 06/18/2020 02:32 PM TSH 2.30 08/11/1996 12:20 PM LDL 83 03/31/2024 12:07 PM LDL 131 (H) 11/20/2017 01:47 PM ALT 15 12/21/2023 06:31 AM ALT 21 06/18/2020 02:32 PM ALT 18 08/11/1996 12:20 PM HGBA1C 5.6 09/08/2023 03:13 PM HGBA1C 5.5 07/17/2020 02:00 PM documented in this encounter Plan of Treatment Upcoming Encounters Date Type Department Care Team (Late st Contact Info) Description 06/15/2024 12:45 PM EDT Immunization/Injec tion Hematology/Oncology Treatment, [place] [facility] [phone] J[place], Chair [address] [place] [address] 06/22/2024 11:40 AM EDT Office Visit Family Practice [facility] [address] [place] [address] Petra Marx MD [address] [place] [address] 06/23/2024 10:00 AM EDT Office Visit Neurology [facility] 200 [facility] [place] [address] Rani Jean MD 200 [facility] [place] [address] 06/30/2024 12:30 PM EDT Home Visit [facility] [place], [facility] [address] [place] [address] Sally Bonilla, RANDELL 132 [facility] [place] [address] 07/04/2024 10:30 AM EDT Office Visit Sleep Disorders Ctr [facility] [address] [place] [phone] Andria Goldstein CRNP [address] [place] [address] 07/11/2024 2:00 PM EDT Scheduled Telephone Interventional Pain Center, [address] [place] [address] Darryn Nurse Phone Call Interventional Pain [address] [place] [address] 08/03/2024 12:00 PM EDT Office Visit Family Practice [facility] 132 [facility] [place] [address] Petra Marx MD 132 [facility] [place] [address] 08/19/2024 10:00 AM EST [facility] [place] [address] Petra Marx MD 132 [facility] [place] [address] 08/30/2024 12:00 PM EST Office Visit Gastroenterology, [facility] 132 [facility] [place] [address] Breann Jerome CRNP [address] [place] [address] 09/14/2024 11:00 AM EST Nurse Only Ancillary [address] [place] [address] Nurse Parvez Annual [address] [place] [address] 02/02/2025 12:30 PM EDT Imaging Radiology [address] [place] [address] Health Maintenance Due Date Last Done Comments Cologuard 1997 Sigmoidoscopy 1997 Fecal Occult Blood Test 08/09/2011 08/09/20 10, 11/14/2009, 12/16/2007, Additional history exists Albumin/Creatinine Ratio 05/01/2024 05/01/2023, 03/05 Influenza Vaccine (FLU shot) (#1) 2024 06/09/2023, 06/12/2022, 06/26/2020, Additional history exists Adult Wellness Visit 09/08/2024 09/08/2023, 09/03/2022, 05/27/2021 Depression Monitoring 09/08/2024 09/08/2023 GFR 09/30/2024 03/31/2024, 03/05, 02/18/2024, Additional history exists TSH 10/31/2024 10/31/2023, 1202/2023, 07/30/2022, Additional history exists Mammogram 01/31/2025 02/01/2024, 01/04, 01/29/2023, Additional history exists CKD HGB USE SMARTSET 62980 03/17/202503/17, 03/17/2024, 12/25/2023, Additional history exists CKD PHOS USE SMARTSET 08163 03/17/202503/05, 02/18/2024, 05/01/2023, Additional history exists O2 [...] D LEVEL ONCE IN A LIFETIME-USE SMARTSET# 18786 Completed 02/18/2024, 05/01/2023, 12/28/2014, Additional history exists [...] this encounter Medical Devices Implanted Type Area Delivery Stock Clerk Device Identifier Shelf Expiration Date Model / Serial / Lot Port Power Mri W/8fr Cath - [id number] Implanted:Qty : 1 on 11/02/2017 by Ignacio Guevara MD at OR [facility] Right: Internal Jugular CR BARD : PERIPHERAL VASCULAR 07/04/2019 [id number] / / [id number] documented as of this encounter Visit Diagnoses Diagnosis Peripheral polyneuropathy Unspecified hereditary and idiopathic peripheral neuropathy documented in this encounter Advance Directives Healthcare Agents on File Name Relationship Healthcare Agent Relationship Communication Ivonne Michelle Other - (no specific identity) Health Care Agent Care Teams Parachute Packer Relationship Specialty Start Date End Date Petra Marx MD [address] [place] [address] PCP - General Internal Medicine 11/09/23 documented as of this encounter
--- OUTSIDE RECORDS SUMMARY | 2024-06-19 17:47 | External Medical Summary | Summary of Care ---
Author Name Unknown Organization [facility] Address [address] [place] [address] Phone [phone] Care Team Providers Care Sales Clerk Supervisor Name Role Phone Petra Marx MD Primary Care Provider Reason for Visit * Reason Onset Date Comments Pre Cert/Prior Auth 06/03/2024 REYVOW Encounter Details Date Type Department Care Team (Late st Contact Info) Description 06/03/2024 Telephone Neurology [facility] [address] [facility] [place] [address] aRni Varela MD [address] [facility] [place] [address] Pre Cert/Prior Auth ( REYV ) Allergies Active Allergy Reactions Criticality Noted Date Comments Aminoglycosides Nebcin Atropine ? allergy to Atropine Cephalosporins Keflin Dipyridamole Persantine Meperidine And Related ? allergy to Demerol Metolazone 10/03/2021 Severe hypokalemia Parasympathomimetics Urecholine Piperacillin Sod-Tazobactam So Rash 02/03 Prochlorperazine Salicylates ASA Sulfa Antibiotics Bactrim Venlafaxine 02/03/2013 Nervous reaction documented as of this encounter (statuses as of 06/13/2024) Medications Medication Sig Dispensed Refills Start Date [...] as needed for Pain, Moderate. 02/14/2024 Active OneTouch Verio In Vitro Strip (Glucose [...] mouth daily. 30 Tablet 11 03/23/2024 Active Pregabalin 25 MG Oral Capsule (Lyrica)Indications :Peripheral polyneuropathy 2 in the am, 1 in the afternoon, 1 in the evening x 1 week then 2 in the morning 2 in the afternoon 1 in the evening x 1 week then 2 three times a day 180 Capsule 1 04/01/2024 Active Famotidine 20 MG Oral Tablet (Pepcid) [...] BEFORE MEALS. 60 Tablet 05/08/2024 Active Creon 24680-95079 UNIT Oral Capsule Delayed Release Particles (Pancrelipase (Pcs-Dglh-Espe)) TAKE FOUR CAPSULES THREE TIMES DAILY 720 [...] 24 hours 10 Tablet 1 06/03/2024 Active documented as of this encounter (statuses as of 06/13/2024) Active Problems Problem Noted Date Diagnosed Date [...] as of this encounter (statuses as of 06/13/2024) Resolved Problems Problem Noted Date Diagnosed Date [...] rinse after steroid. Test performed by Lazarus GLASS INSTALLER TECHNICIAN CPFT Moderate persistent asthma w ithout complication [...] and rinse after steroid. Test performed by A.Isom GLASS INSTALLER TECHNICIAN CPFT Acute. Anemia 10/19/2017 08/09/2021 Malabsorption 10/19/2017 [...] as of this encounter (statuses as of 06/13/2024) Immunizations Name Administration Dates Next Due COVID-19 mRNA, LNP-s, No Pre serve, 2-Dose Series ([employer]) 07/12/2021,05/16/2021,11/18/2020,11/04 COVID-19, LNP-s, No Preserve , Josue-sucrose, Ages 12+ ([employer]) 05/16/2022 Covid-19, Mrna, Lnp-s, Pf, B ivalent, 30 Mcg, IM, 12 yrs and above ([employer]) 08/06/2022 Influenza, Whole Virus 08/19/2000 Pneumococcal Conjugate [...] encounter Miscellaneous Notes * Telephone Encounter - Carol Ann Sheth OSA - 06/07/2024 8:40 AM EDT Per [facility] - they will not allow reyvow unless nurtec and ubrelvy tried first - I see they denied nurtec twice -even though patiient cannot take triptans - nurtec should have beenapproved and always do if fail TWO triptans or can't take triptans - not sure why they denied - I think it may have been an error on their part. I would suggest doing peer to peer on nurtec denial -they will almost always approve after peer to peer - if time to do peer to peer - I can try sending nurtec again with info that patient can't take triptans and see if they cover and if they deny again - you can do peer peer - at that time. * Telephone Encounter - Roshni Parks MED ASSIST - 06/03/2024 3:13 PM EDT Neurology Pre-Cert Request Medication/Disease State Information: Medication: Reyvow 50 mg- take one tab at onset of migraine, max one dose in 24 hours Diagnosis (including ICD-10): Migraine - Chronic Migraine G43.709 - Self- administered - route pre-cert request to [id number] See corresponding visit note(s) for additional supporting clinical information. Office Information: Prescriber: Rani Varela MD documented in this encounter Plan of Treatment Upcoming Encounters Date Type Department Care Team (Late st Contact Info) Description 06/15/2024 12:45 PM EDT Immunization/Injec tion Hematology/Oncology Treatment, [place] [address] [place] [phone] Jolanta, Chair 7 Hem Onc [facility] [address] [facility] [place] [address] 06/22/2024 11:40 AM EDT Office Visit Family Practice [facility] [address] [place] [address] Petra Marx MD [address] [place] [address] 06/23/2024 10:00 AM EDT Office Visit Neurology [facility] [address] [place] [address] Rani Varela MD [address] [facility] [place] [address] 06/30/2024 12:30 PM EDT [facility], [facility] [address] [address] Sally Bonilla, RANDELL [address] [place] [address] 07/04/2024 10:30 AM EDT Office Visit Sleep Disorders Ctr [facility] [address] [phone] Andria Goldstein CRNP [address] [place] [address] 07/11/2024 2:00 PM EDT Scheduled Telephone Interventional Pain Center, [facility] [address] [place] [address] Darryn, Nurse Phone Call Interventional Pain [facility] [address] [place] [address] 08/03/2024 12:00 PM EDT Office Visit Family Practice [facility] [address] [place] [address] Petra Marx MD [address] [place] [address] 08/19/2024 10:00 AM EST Office Visit Family Practice [facility] [address] [place] [address] Petra Marx MD [address] [place] [address] 08/30/2024 12:00 PM EST Office Visit Gastroenterology, [facility] [address] [place] [address] Breann Jerome CRNP [address] [place] [address] 09/14/2024 11:00 AM EST Nurse Only Ancillary [address] [place] [address] [place], Nurse [address] [place] [address] 02/02/2025 12:30 PM EDT Imaging Radiology [address] [place] [address] Health Maintenance Due Date Last Done Comments Cologuard 1997 Sigmoidoscopy 1997 Fecal Occult Blood Test 08/09/2011 08/09/20, 11/14/2009, 12/16/2007, Additional history exists Albumin/Creatinine Ratio 05/01/2024 05/01/2023, 03/05 Influenza Vaccine (FLU shot) (#1) 2024 06/09/2023, 06/12/2022, 06/26/2020, Additional history exists Adult Wellness Visit 09/08/2024 09/08/2023, 09/03/2022, 05/27/2021 Depression Monitoring 09/08/2024 09/08/2023 GFR 09/30/2024 03/31/2024, 03/05, 02/18/2024, Additional history exists TSH 10/31/2024 10/31/2023, 12/02/2023, 07/30/2022, Additional history exists Mammogram 01/31/2025 02/01/2024, 01/04, 01/29/2023, Additional history exists CKD HGB USE SMARTSET 76402 03/17/202503/17, 03/17/2024, 12/25/2023, Additional history exists CKD PHOS USE SMARTSET 40721 03/17/202503/05, 02/18/2024, 05/01/2023, Additional history exists O2 [...] D LEVEL ONCE IN A LIFETIME-USE SMARTSET# 90263 Completed 02/18/2024, 05/01/2023, 12/28/2014, Additional history exists [...] this encounter Medical Devices Implanted Type Area Associate Application Developer Device Identifier Shelf Expiration Date Model / Serial / Lot Port Power Mri W/8fr Cath - [id number] Implanted:Qty : 1 on 11/02/2017 by Ignacio Guevara MD at OR [facility] Right: Internal Jugular CR BARD : PERIPHERAL VASCULAR 07/04/2019 [id number] / / [id number] documented as of this encounter Advance Directives Healthcare Agents on File Name Relationship Healthcare Agent Relationship Communication Ivonne Michelle Other - (no specific identity) Health Care Agent Care Teams Sales Clerk Supervisor Relationship Specialty Start Date End Date Petra Marx MD [address] [place] [address] PCP - General Internal Medicine 11/09/23 documented as of this encounter
--- OUTSIDE RECORDS SUMMARY | 2024-06-19 17:48 | External Medical Summary | Summary of Care ---
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 [M47.816] Procedures DESTROY LUMBAR SACRAL NERVE IMAGING SINGLE DESTROY LUMBAR SACRAL NERVE IMAGING ADD'L DESTROY LUMBAR SACRAL NERVE IMAGING SINGLE DESTROY LUMBAR SACRAL NERVE IMAGING ADD'L Yared Bennett DO [address] [place] [address] [facility] [address] [employer] [address] [place] [phone] Referral ID Status Reason Start Date Expiration Date Visits Re quested Visits Authorized [id number] Encounter Details Date Type Department Care Team (Latest Contact Info) Description 05/30/2024 1:24 PM EDT - 05/30/2024 3:27 PM EDT Hospital Encounter [facility], Operating Room [facility] [address] [place] [address] Yared Bennett DO [address] [place] [address] Discharge Disposition: Home - Self Care Allergies Active Allergy Reactions Criticality Noted Date Comments Aminoglycosides Nebcin Atropine ? allergy to Atropine Cephalosporins Keflin Dipyridamole Persantine Meperidine And Related ? allergy to Demerol Metolazone 10/03/2021 Severe hypokalemia Parasympathomimetics Urecholine Piperacillin Sod-Tazobactam So Rash 02/03 Prochlorperazine Salicylates ASA Sulfa Antibiotics Bactrim Venlafaxine 02/03/2013 Nervous reaction documented as of this encounter (statuses as of 05/31/2024) Medications Medication Sig Dispensed Refills Start Date [...] before bedtime. 60 Capsule 12/25/19 24 Active Diclofenac Sodium 1 % [...] BEDTIME) 180 Tablet 5 01/26/20 24 Active rOPINIRole HCl 0.5 MG Oral Tablet [...] DAY 45 Tablet 1 03/24/20 24 Active Ondansetron HCl 4 MG Oral TabletIndications: Nausea and vomiting, unspecified vomiting type Take 1 Tablet by mouth every 6 hours as needed for Nausea. 30 Tablet 03/23/20 24 Active Zinc 25 MG Oral TabletIndications: Low zinc level Take 1 Tablet by mouth daily. 30 Tablet 11 03/23/20 24 Active Pregabalin 25 MG Oral Capsule (Lyrica)Indication s:Peripheral polyneuropathy 2 in the am, 1 in the afternoon, 1 in the evening x 1 week then 2 in the morning 2 in the afternoon 1 in the evening x 1 week then 2 three times a day 180 Capsule 1 04/01/20 24 Active Famotidine 20 MG Oral Tablet [...] MEALS. 60 Tablet 05/08/20 24 Active Creon 68676-66096 UNIT Oral Capsule Delayed Release Particles (Pancrelipase (Cpp-Voiw-Ysqe)) TAKE FOUR CAPSULES THREE TIMES DAILY 720 Capsule 05/09/20 24 Active Levothyroxine Sodium 88 MCG Oral Tablet (Levoxyl) Take 1 Tablet by mouth in the morning. 90 Tablet 1 05/20/20 24 Active Breo Ellipta 200-25 MCG/ACT Inhalation Aerosol Powder Breath Activated Inhale 1 Puff by mouth daily. 60 Blister Dosing Unit 05/24/20 Active Maurice Carbajal In Vitro Strip (Glucose Blood)Indications: Type 2 diabetes mellitus (HCC) Use up to 4 times a day E11.9 100 Strip 11 02/10/20 21 024 Discontinued(Me dication List Clean Up) Pregabalin 100 MG Oral Capsule (Lyrica) Take 1 Capsule by mouth in the morning and 1 Capsule at noon and 1 Capsule in the evening. 90 Capsule 12/27/19 024 Discontinued(Me dication List Clean Up) Creon 90659-71667 UNIT Oral Capsule Delayed Release Particles (Pancrelipase (Axz-Qrgo-Sjmp)) TAKE 4 CAPSULES THREE TIMES DAILY 720 Capsule 03/26/20 024 Discontinued(Re fill) metOLazone 2.5 MG Oral Tablet (Zaroxolyn) TAKE ONE TABLET ONCE WEEKLY ON THURSDAY IN THE MORNING FOLLOWED IN 20 MIN BY DAILY SCHEDULED TORSEMIDE 15 Tablet 03/26/20 024 Discontinued(Me dication List Clean Up) Vibegron 75 MG Oral Tablet (Gemtesa) 1 Tablet. 05/22/20 024 Discontinued(Me dication List Clean Up) Albuterol Sulfate HFA 108 (90 Base) MCG/ACT Inhalation Aerosol SolutionIndication s:Moderate persistent asthma with exacerbation Inhale 2 Puffs by mouth every 6 hours as needed for Wheezing. 18 g 3 06/17/20 024 Discontinued(Re fill) Torsemide 20 MG Oral Tablet (Demadex)Indicatio ns:Chronic diastolic heart failure (HCC) Take 1 tab twice daily 360 Tablet 3 06/22/20 024 Discontinued(Me dication List Clean Up) Ipratropium-Albute rol 0.5-2.5 (3) MG/3ML Inhalation Solution (Duoneb) Inhale 3 mL via nebulizer every 4 hours as needed for Wheezing. 360 mL 3 06/29/20 024 Discontinued(Re fill) Montelukast Sodium 10 MG Oral Tablet (Singulair) Take 1 Tablet by mouth at bedtime. 30 Tablet 5 06/29/2025 12/22/2 024 Discontinued(Re fill) Omeprazole 20 MG Oral Capsule Delayed Release (PriLOSEC) TAKE ONE CAPSULE EVERY DAY and TAKE ONE CAPSULE AT BEDTIME 60 Capsule 5 06/29/20 024 Discontinued(Re fill) Rosuvastatin Calcium 10 MG Oral Tablet (Crestor) Take 1 Tablet by mouth in the morning. 30 Tablet 5 06/29/20 024 Discontinued(Re fill) Calcitriol 0.5 MCG Oral Capsule (Rocaltrol) Take 1 Capsule by mouth in the morning and 1 Capsule before bedtime. 60 Capsule 5 06/30/20 23 024 Discontinued(Re fill) rOPINIRole HCl 0.5 MG Oral Tablet Take 1 Tablet by mouth at bedtime. With food. 90 Tablet 11 07/20/20 024 Discontinued(Re fill) DULoxetine HCl 60 MG Oral Capsule Delayed Release Particles (Cymbalta)Indicati ons:Major depressive disorder, recurrent, moderate (HCC) Take 1 Capsule by mouth in the morning. Do not cut, crush or chew. 30 Capsule 5 07/20/20 024 Discontinued(Me dication List Clean Up) Calcium Carb-Cholecalcifer ol 600-10 MG-MCG Oral TabletIndications: Postsurgical malabsorption, not elsewhere classified Take 2 Tablets by mouth in the morning and 2 Tablets at noon and 2 Tablets before bedtime. 180 Tablet 5 07/20/20 23 024 Discontinued Colesevelam HCl 625 MG Oral Tablet (Welchol)Indicatio ns:Diarrhea due to malabsorption Take 1 Tablet by mouth in the morning and 1 Tablet at noon and 1 Tablet in the evening. 270 Tablet 1 08/14/20 024 Discontinued(Me dication List Clean Up) Breo Ellipta 200-25 MCG/ACT Inhalation Aerosol Powder Breath Activated Inhale 1 Puff by mouth daily. 09/02/20 024 Discontinued(Re fill) Levothyroxine Sodium 88 MCG Oral Tablet (Levoxyl) Take 1 Tablet by mouth in the morning. 90 Tablet 1 09/19/20 024 Discontinued(Re fill) documented as of this encounter (statuses as of 05/31/2024) Active Problems Problem Noted Date Diagnosed Date Colon polyps 05/24/2024 Overview: 05/2024. Done at [facility]. Three small. Clostridioides difficile infection 03/23/2024 [...] as of this encounter (statuses as of 05/31/2024) Resolved Problems Problem Noted Date Diagnosed Date [...] rinse after steroid. Test performed by [facility] [employer] [facility] Moderate persistent asthma w ithout complication 10/11/2019 08/09/2021 Overview: In Check dial performed to assess inhaler technique: 11/25/19 Name of inhalers Albuterol Pass: Yes at 40L/min and Trelegy Ellipta Pass: Yes at 35L/min. Encourage to take deep breaths, use aero chamber, and rinse after steroid. Test performed by [facility] [employer] [facility] Ulcer of left lower extremit y, [...] rinse after steroid. Test performed by [facility] [employer] [facility] Groupl B, by GOLD 2017 classification [...] rinse after steroid. Test performed by [facility] [employer] [facility] Acute. Anemia 10/19/2017 08/09/2021 Malabsorption 10/19/2017 10/31/2021 Chronic congestive heart failure 10/19/2017 06/20/2019 ADVANCE DIRECTIVE INFORMATION 12/08/2006 03/28/2020 Overview: No, Advance Directive brochure offered , patient declined. Historical. OSTEOARTHROS NOS-L-LEG 10/08/2004 08/24 /2023 ABNORMAL GRANULATION NEC Overview: Acute. Menopause 03/28/2020 [...] as of this encounter (statuses as of 05/31/2024) Immunizations Name Administration Dates Next Due COVID-19 mRNA, LNP-s, No Pre serve, 2-Dose Series ([employer]) 07/12/2021,05/16/2021,11/18/2020,11/04 COVID-19, LNP-s, No Preserve , Josue-sucrose, Ages 12+ (Pfizer) 05/16/2022 Covid-19, Mrna, Lnp-s, Pf, B ivalent, 30 Mcg, IM, 12 yrs and above ([employer]) 08/06/2022 Pneumococcal Conjugate Vacc, 13 Valent (Prevnar) [...] No 11/19/2023 Does the household have a [facility] [[email or web address]]lar source of income? (Household - for ages [...] Sign Reading Time Taken Comments Blood Pressure 121/60 05/30/2024 3:11 PM EDT Pulse 63 05/30/2024 3:11 PM EDT Temperature 36.3 C (97.4 F) 05/30/2024 2:21 PM ED T Respiratory Rate 16 05/30/2024 3:11 PM EDT Oxygen Saturation 100% 05/30/2024 3:11 PM EDT Inhaled Oxygen Concentration - - Weight 67.1 kg (148 lb) 05/30/2024 2:21 PM EDT Height 154.9 cm (5' 1") 05/30/2024 2:21 PM EDT Body Mass Index 27.96 05/30/2024 2:21 PM EDT documented in this encounter Discharge Instructions * Discharge Instr - AVS* Yared Bennett DO - 05/30/2024 3:13 PM EDT [facility] [address] [place] [address] Discharge Date: 05/30/2024 You may call [facility] at [phone] during business hours. For after-hours emergencies call 911. Your attending physician at the time of your discharge was: Yared Bennett DO [address] [place] [address] The information below provides you with the instructions and the list of medications you need to betaking following discharge from the hospital. If you have any questions, please ask before leaving.Please carry this letter with you when you see your doctor in the clinic. Diet: Resume your normal diet If you are diabetic, follow your blood sugars closely for next 2-3 days as they are likely to be elevated. If you are having difficulty controlling your blood sugars call your family doctor or the physician that treats your diabetes. Activity: Do not engage in strenuous activity today Resume your normal activities tomorrow Do not soak in water for 24 hours. No swimming, hot tub or bath but showering is allowed. Do not use heat on the injection site for 24 hours. If uncomfortable ice may be helpful. Some injections may make your arms or legs weak for a few hours. Be extremely careful when walking or changing positions that you do not fall. Have someone assist you for the next 6 hours. If weakness or numbness becomes progressive CALL IMMEDIATELY or GO TO THE NEAREST EMERGENCY ROOM Do not restart physical therapy or chiropractic manipulation until 48 hours after your injection Call : If weakness or numbness suddenly becomes worse or become progressive If the injection site becomes red, swollen, warm to the touch, begins to bleed or drain fluid, or is excessively painful. If you have any questions Medications: Resume all the medications you were taking prior to your injection. Resume your anticoagulants tomorrow unless otherwise instructed by your family physician, admiralty lawyer or the anticoagulation clinic. Additional Instructions: None Driving: You may resume driving in 12-24 hours if no weakness is noted . Date you may return to work or school: N/A Follow Up: Please make a follow-up telephone appointment with our nursing staff in 4-6 weeks. documented in this encounter Progress Notes * Yared Bennett DO - 05/30/2024 3:13 PM EDT [facility] [place] [address] [place] [facility] [address] OUTPATIENT SURGERY DISCHARGE SUMMARY NOTE Name: Liz Braswell Location: OR [facility]/DE Date: 05/30/2024 Time: 3:13 PM Surgery Date: 05/30/2024 Procedure: DESTROY LUMBAR SACRAL NERVE IMAGING SINGLE, DESTROY LUMBAR SACRAL NERVE IMAGING ADD'L Bilateral Bilateral Surgeon: Yared Bennett DO Discharge Diagnosis: lumbar spondylosis After examination of this patient, I have determined she is ready for discharge to home when the patient meets criteria. Discharge instructions were given to the patient. Yared Bennett DO [facility], Operating Room [facility] [address] [facility] [phone] documented in this encounter H&P Notes * Yared Bennett DO - 05/30/2024 2:09 PM EDT Interventional Pain H&P Subjective: History of Present Illness: Liz Braswell is a 73 year old year-old female with a past medical history significant for lumbosacral spondylosis who is presenting for bilateral L3,4,5 medial branch RFA to improve her pain andfunction. her pain is essentially unchanged since our last office visit with her. ASA 3 AW nml Review of Systems: A focused 12-pt ROS were of reviewed with the patient including difficulty with sleep, snoring, aspiration history, dysphagia, stomach pain, nausea and vomiting, severe headaches, confusion, open skin lesions or wounds, chest pain, shortness of breath, excessive thirst, somnolence, dysuria, incomplete bladder emptying, easy bruising, recent clotting problems or bleeding, depression or rushed thoughts unless noted previously. Review of patient's allergies indicates: Allergen Reactions Aminoglycosides Nebcin Atropine ? allergy to Atropine Cephalosporins Keflin Dipyridamole Persantine Meperidine And Related ? allergy to Demerol Metolazone Severe hypokalemia Parasympathomimetics Urecholine Piperacillin Sod-Tazobactam So Rash Prochlorperazine Salicylates ASA Sulfa Antibiotics Bactrim Venlafaxine Nervous reaction Medications, Past Medical History, Past Surgical History reviewed and documented in Epic. See detailed report if needed. Pertinent Labs/Test Results: INR (no units) Date Value 06/12/2010 1.05 No results found for: "CREATININE" Hemoglobin A1C (%) Date Value 09/08/2023 5.6 07/17/2020 5.5 No results found for: "AMPHETAMINE", "BARBITURATES", "BENZODIAZEPINES", "BUPRENORPHINE", "METHADONE", "OPIATES", "OXYCODONE", "PHENCYCLIDINE", "CANNABINOIDS", "TOX SCREEN", "URINE", "TOX SCREEN-SERUM", "TOX SCREEN, URINE" Imaging: I personally reviewed the imaging and my findings were . XR ABDOMEN 1 VIEW Narrative: EXAM XR ABDOMEN 1 VIEW - 03/31/2024 12:16 pm HISTORY diarrhea TECHNIQUE Two supine views abdomen COMPARISON None. FINDINGS Surgical shweta are present in the epigastric region can be due to previous gastric bypass. Bowel gas pattern is nonobstructed. Small to moderate amount of stool is contained within the colon. Fecalith right mid abdomen measures 9 mm. Broad-based dextroscoliosis of the lumbar spine. Mild hip osteoarthritis. Impression: IMPRESSION Nonobstructed bowel-gas pattern. Objective Physical Exam: Vital Signs: There were no vitals taken for this visit. There is no height or weight on file to calculate BMI. General: No apparent distress. Eyes: pupils equal and round, sclera white, pupils midsize. ENT: mucous membranes moist Resp: Non-labored breathing CV: Extremities warm and well-perfused. Psych: Oriented; affect warm, insight good. Skin: No rashes or lesions appreciated on exposed skin Neuromuscular Exam: Facet loading pos, TTT over lumbar spine Assessment: Liz is a 73 year old year-old female with: Lumbar spondylosis Plan: The patient is undergoing bilateral L3,4,5 medial branch RFA today to alleviate her pain and improve her function. The risks, benefits and alternatives to the procedure were reviewed at length and the patient was provided the opportunity to ask questions which were answered to their voiced understanding. Following this comprehensive discussion, the patient opted to proceed. The patient was consented to the procedure following this comprehensive conversation. Yared Bennett DO [facility], Operating Room [address] [address] documented in this encounter Nursing Notes * Isacc Daniels RN - 05/30/2024 3:18 PM EDT Pt tolerated procedure well. Pt has been visited by Dr. Bennett. Discharge instructions reviewed with pt and pt has verbalized understanding of these teachings. Pt ready for discharge. * Emily Bautista RN - 05/30/2024 3:10 PM EDT Band aid applied to area. Patient transferred to PACU 11 via wheelchair * Emily Bautista RN - 05/30/2024 3:06 PM EDT Band aid applied to area. Patient transferred to PACU 11 via wheelchair * Emily Bautista RN - 05/30/2024 3:02 PM EDT Patient tolerating pain management injection well. * Emily Bautista RN - 05/30/2024 2:56 PM EDT Patient tolerating pain management injection well. * Emily Bautista RN - 05/30/2024 2:51 PM EDT Ablation started Patient tolerating pain management injection well. * Emily Bautista RN - 05/30/2024 2:37 PM EDT Patient tolerating pain management injection well. documented in this encounter OR Notes * OR Surgeon - Yared Bennett DO - 05/30/2024 3:10 PM EDT LUMBAR MEDIAL BRANCH RADIOFREQUENCY ABLATION DATE: 05/30/2024 PHYSICIAN: Yared Bennett DO PREOPERATIVE DIAGNOSIS: Lumbar spondylosis with lumbar facet arthropathy. POSTOPERATIVE DIAGNOSIS: Lumbar spondylosis with lumbar facet arthropathy. PROCEDURE PERFORMED: 1. Radiofrequency ablation of the L3 medial branch nerves, bilateral. 2. Additional levels: L4 medial branch and L5 dorsal ramus nerves, bilateral. 3. Fluoroscopy for precise needle placement. ANESTHESIA: Local infiltration with conscious sedation MONITORS: Automatic blood pressure cuff, pulse oximetry. INDICATIONS: Liz Braswell ([id number]) is a 73 year old year-old female with history of lumbar spondylosis and facetogenic pain. The patient had 2 positive diagnostic medial branch blocks and came today for elective medial branch radiofrequency ablation at the above noted levels. MEDICATIONS: No current facility-administered medications for this encounter. ALLERGIES: Review of patient's allergies indicates: Allergen Reactions Aminoglycosides Nebcin Atropine ? allergy to Atropine Cephalosporins Keflin Dipyridamole Persantine Meperidine And Related ? allergy to Demerol Metolazone Severe hypokalemia Parasympathomimetics Urecholine Piperacillin Sod-Tazobactam So Rash Prochlorperazine Salicylates ASA Sulfa Antibiotics Bactrim Venlafaxine Nervous reaction REVIEW OF SYSTEMS: Negative for fever, chills, chest pain, SOB, bleeding abnormalities, nausea, vomiting, diarrhea, worsening edema, or new rashes. FOCUSED PHYSICAL EXAMINATION: The patient is awake, alert and oriented, and is in no acute distress. Vital signs are stable. The patient is afebrile. The rest of the physical examination is essentially unchanged from the patient's recent visit to our office. I explained the procedure to the patient including the risks, benefits and alternatives to the procedure. The risks discussed with the patient included but were not limited to: bleeding, infection, and damage to surrounding nerves, tissues, and organs, paralysis, increased pain, allergic reaction, blood pressure instability, seizures, heart block, headaches, . Alternatives to the procedure were also explained and include: do nothing, surgery, medications, and physical therapy. The patient verbalized understanding and was willing to proceed. PROCEDURE IN DETAIL: An informed consent was obtained. The patient was taken to the procedure room and was positively identified by the staff and the attending physician. The patient was positioned prone on the procedure bed. Vital signs were monitored as above and remained stable throughout the procedure. Conscious sedation was utilized for the procedure. The skin was prepped and draped in the standard sterile fashion. A surgical pause (time-out) was performed and was agreed upon by the members of the team. A fluoroscopic view of the lumbar spine was obtained, and the area of interest was identified. The skin was anesthetized using 1% lidocaine and 25-gauge 1-1/2-inch needle. After that, an 18-gauge 10-cm radiofrequency cannula with 10-mm active tip was advanced onto the junction between the superior articular process and the transverse process of L4 on the right side while in the declined and oblique view. Full contact with the bone was established. Additional RF cannulae were placed between the superior articular process and the transverse process of L5 on the rightside and between the superior articular process of S1 and the sacral ala. This was to target the L3, L4 medial branches and L5 dorsal ramus innervating the L4/5, and L5/S1 facet joints. Proper needleplacement was verified and optimized in AP and lateral views. The nerve root motor fiber recruitment was ruled out by stimulation at 2 Hz in the range between 1.5 to 2.5 V after establishing 50Hz sensory thresholds with a goal less than or equal to 0.5V. Only localized twitching of the multifidus muscle was elicited. Prior to lesioning, each nerve was anesthetized with 1 mL of 2% lidocaine. Each nerve was then simultaneously lesioned at 85 degrees centigrade, 150 seconds in duration. During removal of each cannula, the tract was anesthetized with 1mL of 0.25% bupivacaine. The procedure was repeated in the same fashion on the contralateral side. Bandages were then placed over each of the puncture sites as needed. The patient tolerated the procedure well. The patient was transferred in stable condition to the recovery room. COMPLICATIONS: None. DISPOSITION: 1. Return to clinic in 1-2 months for follow-up evaluation, sooner as needed. 2. Resume activity as tolerated. 3. Patient can drive after 12-24 hours if no weakness noted. Yared Bennett DO [facility], Operating Room [facility] [address] [place] [phone] documented in this encounter Plan of Treatment Upcoming Encounters Date Type Department Care Team (Late st Contact Info) Description 06/15/2024 12:45 PM EDT Immunization/Injec tion Hematology/Oncology Treatment, [place] [address] [place] [address] Jolanta, Chair 7 Hem [facility] [address] [facility] [address] 06/22/2024 11:40 AM EDT Office Visit [facility] [address] [place] [address] Petra Marx MD [address] [place] [address] 06/23/2024 10:00 AM EDT Office Visit Neurology [facility] [address] [facility] [place] [address] Rani Varela MD [address] [facility] [address] [place] [address] 06/30/2024 12:30 PM EDT Home Visit [facility], [facility] [address] [place] [address] Sally Bonilla RN [address] [place] [address] 07/04/2024 10:30 AM EDT Office Visit Sleep Disorders Ctr [facility] [address] [place] [id number] Andria Goldstein CRNP [address] [place] [address] 07/11/2024 2:00 PM EDT Scheduled Telephone Interventional Pain Center, [facility] [address] [place] [address] [facility], Nurse Phone Call Interventional Pain [facility] [address] [place] [address] 08/03/2024 12:00 PM EDT Office Visit Family [facility] [address] [place] [address] Petra Marx MD [address] [place] [address] 08/19/2024 10:00 AM EST Office Visit Family [facility] [address] [place] [address] Petra Marx MD [address] [place] [address] 08/30/2024 12:00 PM EST Office Visit Gastroenterology, [facility] [address] [place] [address] Breann Jerome CRNP [address] [place] [address] 09/14/2024 11:00 AM EST Nurse Only Ancillary [address] [place] [address] [place], Nurse [address] [place] [address] 02/02/2025 12:30 PM EDT Imaging Radiology [address] [place] [address] Health Maintenance Due Date Last Done Comments [...] Additional history exists CKD HGB USE SMARTSET 75476 03/17/202503/17, 03/17/2024, 12/25/2023, Additional history exists CKD PHOS USE SMARTSET 50799 03/17/202503/05, 02/18/2024, 05/01/2023, Additional history exists O2 ASSESSMENT COMPLETED IN PAST YEAR FOR COPD 05/30/2025 05/30/2024 DXA Scan 07/23/2025 07/23/2023, 07/05, 03/18/2022, Additional history exists DTaP,Tdap,and Td Vaccines (2 - Td or Tdap) 05/21/2028 05/21/2018 (Declined) Colonoscopy 05/04/2034 05/04/2024, 08/11/2016 Colorectal Cancer Screening 05/04/2034 Pneumococcal Vaccine: 65+ Years Completed 07/06/2019, 05/21/2018 Zoster Vaccines Completed 04/11/2020, 10/11/2019 Alpha-1 Antitrypsin Completed 06/18/2020 COVID-19 Vaccine Discontinued 07/01/2023, 11/2021, 05/16/2022, Additional history exists VITAMIN D LEVEL ONCE IN A LIFETIME-USE SMARTSET# [id number] Completed 02/18/2024, 05/01/2023, 12/28/2014, Additional history exists [...] this encounter Medical Devices Implanted Type Area Material Engineer Device Identifier Shelf Expiration Date Model / Serial / Lot Port Power Mri W/8fr Cath - [id number] Implanted:Qty : 1 on 11/02/2017 by Ignacio Guevara MD at OR [facility] Right: Internal Jugular CR BARD : PERIPHERAL VASCULAR 07/04/2019 [id number] / / [id number] documented as of this encounter Procedures Procedure Name Priority Date/Time Associated Diagnosis Comments FLUORO INTERVENTIONAL PAIN PROCEDURE NONBILLABLE Routine 05/30/2024 3:05 PM EDT documented in this encounter Results * FLUORO INTERVENTIONAL PAIN PROCEDURE NONBILLABLE (05/30/2024 3:05 PM EDT) Narrative Scheduling, Silent - 05/30/2024 3:06 PM EDT This procedure will not be read by a Radiologist. Please see operative note. Yared Bennett DO RAD FLUOROSCOPY documented in this encounter Administered Medications Inactive Administered Medications - up to 3 most recent administrations Medication Order MAR Action Action Date Dose Rate Site Acetaminophen (Tylenol) tab 650 mg 650 mg, Oral, PRN Pain, Mild, Starting on Thu05/30/24 at 1514, Until Thu05/30/24 at 1930, For 1 dose, Maximum of 4 grams (4000 mg) per day., Post-op bupivacaine (Sensorcaine) 0.25 % inj 3.75 mg 3.75 mg (1.5 mL), Injection, ONCE, On Thu05/30/24 at 1400, For 1 dose, Bilateral Given 05/30/2024 2:54 PM EDT 7 mL lidocaine 1 % inj 15 mg 15 mg (1.5 mL), Subcutaneous, ONCE, On Thu05/30/24 at 1400, For 1 dose Given 05/30/2024 2:36 PM EDT 5 mL Other-Specify lidocaine 2 % inj 30 mg 30 mg (1.5 mL), Injection, ONCE, On Thu05/30/24 at 1400, For 1 dose Given 05/30/2024 2:49 PM EDT 10 mL documented in this encounter Active and Recently Administered Medications Times are shown in EDT. Scheduled Medication Order 05/28/2024 05/29/2024 05/30/2024 bupivacaine (Sensorcaine) 0.25 % inj 3.75 mg (COMPLETED) 3.75 mg (1.5 mL), Injection, ONCE, On Thu05/30/24 at 1400, For 1 dose, Bilateral 1454 (Given - Provid er: Emily Bautista RN - Comment: BILATERAL L3L4L5 RADIOFREQUENCY divided doses) lidocaine 1 % inj 15 mg (COMPLETED) 15 mg (1.5 mL), Subcutaneous, ONCE, On Thu05/30/24 at 1400, For 1 dose 1436 (Given - Provid er: Emily Bautista RN - Comment: BILATERAL L3L4L5 RADIOFREQUENCY divided doses) lidocaine 2 % inj 30 mg (COMPLETED) 30 mg (1.5 mL), Injection, ONCE, On Thu05/30/24 at 1400, For 1 dose 1449 (Given - Provid er: Emily Bautista RN - Comment: BILATERAL L3L4L5 RADIOFREQUENCY divided doses) PRN Medication Order 05/28/2024 05/29/2024 05/30/2024 Acetaminophen (Tylenol) tab 650 mg 650 mg, Oral, PRN Pain, Mild, Starting on Thu05/30/24 at 1514, Until Thu05/30/24 at 1930, For 1 dose, Maximum of 4 grams (4000 mg) per day., Post-op documented in this encounter Advance Directives Healthcare Agents on File Name Relationship Healthcare Agent Relationship Communication Ivonne Martinez Other - (no specific identity) Health Care Agent Care Teams Mailmaster Relationship Specialty Start Date End Date Petra Marx MD [address] [place] [address] PCP - General Internal Medicine 11/09/23 documented as of this encounter
--- OUTSIDE RECORDS SUMMARY | 2024-06-19 17:48 | External Medical Summary | Summary of Care ---
Author Name Unknown Organization [facility] Address [address] [place] [address] Phone [phone] Care Team Providers Care Calculus Professor Name Role Phone Petra Marx MD Primary Care Provider Reason for Visit * Reason Onset Date Comments Medication Pre-auth 06/03/2024 Encounter Details Date Type Department Care Team (Late st Contact Info) Description 06/03/2024 Telephone Neurology [facility] [address] [place] [address] Rani Varela MD [address] [place] [address] Medication Pre-auth Allergies Active Allergy Reactions Criticality Noted Date Comments Aminoglycosides Nebcin Atropine ? allergy to Atropine Cephalosporins Keflin Dipyridamole Persantine Meperidine And Related ? allergy to Demerol Metolazone 10/03/2021 Severe hypokalemia Parasympathomimetics Urecholine Piperacillin Sod-Tazobactam So Rash 02/03 Prochlorperazine Salicylates ASA Sulfa Antibiotics Bactrim Venlafaxine 02/03/2013 Nervous reaction documented as of this encounter (statuses as of 06/03/2024) Medications Medication Sig Dispensed Refills Start Date [...] BEFORE MEALS. 60 Tablet 05/08/2024 Active Creon 41735-06029 UNIT Oral Capsule Delayed Release Particles (Pancrelipase (Vor-Nsdk-Dzhu)) TAKE FOUR CAPSULES THREE TIMES DAILY 720 [...] as of this encounter (statuses as of 06/03/2024) Active Problems Problem Noted Date Diagnosed Date Colon polyps 05/24/2024 Overview: 05/2024. Done at [facility]. Three small. Clostridioides difficile infection 03/23/2024 Chronic diastolic congestive heart failure 11/09 Secondary hyperparathyroidism of renal origin Hypoglycemia 06/29/2023 Last Assessment & Plan: Glucose 103 during visit. Reordered freestyle Larisa-patient had previously. Follows with endocrinology at [facility] Stage 3a chronic kidney disease 04/16/2023 [...] Hypothyroidism 01/13/2023 Hyperparathyroidism 01/13/2023 Age-related osteoporosis wit raffi current pathological fracture 01/13/2023 Sick sinus syndrome [...] as of this encounter (statuses as of 06/03/2024) Resolved Problems Problem Noted Date Diagnosed Date [...] rinse after steroid. Test performed by Lazarus DAT INSTRUCTOR CPFT Moderate persistent asthma w ithout complication 10/11/2019 08/09/2021 Overview: In Check dial performed to assess inhaler technique: 11/25/19 Name of inhalers Albuterol Pass: Yes at 40L/min and Trelegy Ellipta Pass: Yes at 35L/min. Encourage to take deep breaths, use aero chamber, and rinse after steroid. Test performed by Lazarus DAT INSTRUCTOR CPFT Ulcer of left lower extremit y, [...] rinse after steroid. Test performed by Lazarus DAT INSTRUCTOR CPFT Acute. Anemia 10/19/2017 08/09/2021 Malabsorption 10/19/2017 [...] as of this encounter (statuses as of 06/03/2024) Immunizations Name Administration Dates Next Due COVID-19 mRNA, LNP-s, No Pre serve, 2-Dose Series ([employer]) 07/12/2021,05/16/2021,11/18/2020,11/04 COVID-19, LNP-s, No Preserve , Josue-sucrose, Ages 12+ ([employer]) 05/16/2022 Covid-19, Mrna, Lnp-s, Pf, B ivalent, 30 Mcg, IM, 12 yrs and above ([employer]) 08/06/2022 Pneumococcal Conjugate Vacc, 13 Valent (Prevnar) [...] Self- administered - route pre-cert request to [id number] See corresponding visit note(s) for additional supporting clinical information. Office Information: Prescriber: Rani Varela MD documented in this encounter Plan of Treatment Upcoming Encounters Date Type Department Care Team (Late st Contact Info) Description 06/15/2024 12:45 PM EDT Immunization/Injec tion Hematology/Oncology Treatment, [address] [place] [address] Jolanta, Chair 7 Hem On[address] [place] [address] 06/22/2024 11:40 AM EDT Office Visit Family [facility] [address] [place] [address] Petra Marx MD [address] [place] [address] 06/23/2024 10:00 AM EDT Office Visit Neurology [address] [place] [address] Rani Varela MD [address] [place] [address] [place] [address] 06/30/2024 12:30 PM EDT [facility] Visit [facility] [address] [place] [address] Sally Bonilla, RN [address] [place] [address] 07/04/2024 10:30 AM EDT Office Visit [facility] [place] [phone] Andria Goldstein CRNP [address] [place] [address] 07/11/2024 2:00 PM EDT Scheduled Telephone Interventional Pain Center, [facility] [place] [address] [facility], Nurse Phone Call Interventional Pain [facility] [address] [place] [address] 08/03/2024 12:00 PM EDT Office Visit Family Practice [facility] [address] [place] [address] Petra Marx MD [address] [place] [address] 08/19/2024 10:00 AM EST [facility] [place] [address] Petra Marx MD [address] [place] [address] 08/30/2024 12:00 PM EST Office Visit Gastroenterology, [facility] [address] [facility] [place] [address] Breann Jerome CRNP [address] [place] [address] 09/14/2024 11:00 AM EST Nurse Only Ancillary [address] [place] [address] [place], Nurse Annual Wellness [address] [place] [address] [place] [address] 02/02/2025 12:30 PM EDT Imaging Radiology [address] [place] [address] Health Maintenance Due Date Last Done Comments [...] Additional history exists CKD HGB USE SMARTSET 67053 03/17/202503/17, 03/17/2024, 12/25/2023, Additional history exists CKD PHOS USE SMARTSET 47490 03/17/202503/05, 02/18/2024, 05/01/2023, Additional history exists O2 [...] D LEVEL ONCE IN A LIFETIME-USE SMARTSET# 72862 Completed 02/18/2024, 05/01/2023, 12/28/2014, Additional history exists [...] this encounter Medical Devices Implanted Type Area Furnace Mechanic Device Identifier Shelf Expiration Date Model / Serial / Lot Port Power Mri W/8fr Cath - [id number] Implanted:Qty : 1 on 11/02/2017 by Ignacio Guevara MD at OR [facility] Right: Internal Jugular CR BARD : PERIPHERAL VASCULAR 07/04/2019 [id number] / / [id number] documented as of this encounter Advance Directives Healthcare Agents on File Name Relationship Healthcare Agent Relationship Communication Ivonne Michelle Other - (no specific identity) Health Care Agent Care Teams Calculus Professor Relationship Specialty Start Date End Date Petra Marx MD [address] [place] [address] PCP - General Internal Medicine 11/09/23 documented as of this encounter
--- OUTSIDE RECORDS SUMMARY | 2024-06-19 17:48 | External Medical Summary | Summary of Care ---
Author Name Unknown Organization [facility] Address [address] [place] [address] Phone [phone] Care Team Providers Care Director Financial Planning Name Role Phone Petra Marx MD Primary Care Provider Reason for Visit * Reason Onset Date Comments Precert In Process 06/03/2024 03 [facility] PEND [facility] QUESTION [facility] Encounter Details Date Type Department Care Team (Late st Contact Info) Description 06/03/2024 Telephone Neurology [facility] [address] [place] [address] Rani Varela MD [address] [place] [facility] [place] [address] Precert In Process (03 [facility] PENDING [facility]... Allergies Active Allergy Reactions Criticality Noted Date Comments Aminoglycosides Nebcin Atropine ? allergy to Atropine Cephalosporins Keflin Dipyridamole Persantine Meperidine And Related ? allergy to Demerol Metolazone 10/03/2021 Severe hypokalemia Parasympathomimetics Urecholine Piperacillin Sod-Tazobactam So Rash 02/03 Prochlorperazine Salicylates ASA Sulfa Antibiotics Bactrim Venlafaxine 02/03/2013 Nervous reaction documented as of this encounter (statuses as of 06/07/2024) Medications Medication Sig Dispensed Refills Start Date [...] BEFORE MEALS. 60 Tablet 05/08/2024 Active Creon 40125-95161 UNIT Oral Capsule Delayed Release Particles (Pancrelipase (Wkw-Jozw-Vnbe)) TAKE FOUR CAPSULES THREE TIMES DAILY 720 [...] as of this encounter (statuses as of 06/07/2024) Active Problems Problem Noted Date Diagnosed Date Colon polyps 05/24/2024 Overview: 05/2024. Done at [facility]. Three small. Clostridioides difficile infection 03/23/2024 Chronic diastolic congestive heart failure 11/09 Secondary hyperparathyroidism of renal origin Hypoglycemia 06/29/2023 Last Assessment & Plan: Glucose 103 during visit. Reordered freestyle Larisa-patient had previously. Follows with endocrinology at [facility] Stage 3a chronic kidney disease [...] as of this encounter (statuses as of 06/07/2024) Resolved Problems Problem Noted Date Diagnosed Date [...] rinse after steroid. Test performed by Lazarus ASSISTANT PRODUCER CPFT Moderate persistent asthma w ithout complication 10/11/2019 08/09/2021 Overview: In Check dial performed to assess inhaler technique: 11/25/19 Name of inhalers Albuterol Pass: Yes at 40L/min and Trelegy Ellipta Pass: Yes at 35L/min. Encourage to take deep breaths, use aero chamber, and rinse after steroid. Test performed by Lazarus ASSISTANT PRODUCER CPFT Ulcer of left lower extremit y, [...] rinse after steroid. Test performed by Lazarus ASSISTANT PRODUCER CPFT Acute. Anemia 10/19/2017 08/09/2021 Malabsorption 10/19/2017 [...] as of this encounter (statuses as of 06/07/2024) Immunizations Name Administration Dates Next Due COVID-19 mRNA, LNP-s, No Pre serve, 2-Dose Series ([employer]) 07/12/2021,05/16/2021,11/18/2020,11/04 COVID-19, LNP-s, No Preserve , Josue-sucrose, Ages 12+ ([employer]) 05/16/2022 Covid-19, Mrna, Lnp-s, Pf, B ivalent, 30 Mcg, IM, 12 yrs and above ([employer]) 08/06/2022 Influenza, Whole Virus 08/19/2000 Pneumococcal Conjugate [...] Self- administered - route pre-cert request to [id number] See corresponding visit note(s) for additional supporting clinical information. Office Information: Prescriber: Rani Varela MD documented in this encounter Plan of Treatment Upcoming Encounters Date Type Department Care Team (Late st Contact Info) Description 06/15/2024 12:45 PM EDT Immunization/Injec tion Hematology/Oncology Treatment, [place] [address] [facility] [address] [place] [phone] Jolanta, Chair 7 Hem Onc [facility] [address] [facility] [place] [address] 06/22/2024 11:40 AM EDT Office Visit Family Practice [facility] [address] [place] [address] Petra Marx MD [address] [place] [address] 06/23/2024 10:00 AM EDT Office Visit Neurology [facility] [address] [facility] [place] [address] Rani Varela MD [address] [place] [address] 06/30/2024 12:30 PM EDT [facility] [place] [address] [place] [address] Sally Bonilla, RN [address] [place] [address] 07/04/2024 10:30 AM EDT Office Visit Sleep Disorders Ctr [facility] [address] [place] [phone] Andria Goldstein CRNP [address] [place] [address] 07/11/2024 2:00 PM EDT Scheduled Telephone Interventional Pain Center, [facility] [address] [place] [address] Darryn Nurse Phone Call Interventional Pain [facility] [address] [place] [address] 08/03/2024 12:00 PM EDT [facility] [address] [place] [address] Petra Marx MD [address] [place] [address] 08/19/2024 10:00 AM EST [facility] Visit [facility] [address] [place] [address] Petra Marx MD [address] [place] [address] 08/30/2024 12:00 PM EST Office Visit Gastroenterology, [facility] [address] [place] [address] Breann Jerome CRNP [address] [place] [address] 09/14/2024 11:00 AM EST Nurse Only Ancillary [address] [place] [address] [place], Nurse [address] [place] [address] 02/02/2025 12:30 PM EDT Imaging Radiology [address] [place] [address] Health Maintenance Due Date Last Done Comments [...] Additional history exists CKD HGB USE SMARTSET 96836 03/17/202503/17, 03/17/2024, 12/25/2023, Additional history exists CKD PHOS USE SMARTSET 22361 03/17/202503/05, 02/18/2024, 05/01/2023, Additional history exists O2 [...] D LEVEL ONCE IN A LIFETIME-USE SMARTSET# [id number] Completed 02/18/2024, 05/01/2023, 12/28/2014, Additional history exists [...] this encounter Medical Devices Implanted Type Area Automobile Upholstery Trim Installer Device Identifier Shelf Expiration Date Model / Serial / Lot Port Power Mri W/8fr Cath - [id number] Implanted:Qty : 1 on 11/02/2017 by Ignacio Guevara MD at OR [facility] Right: Internal Jugular CR BARD : PERIPHERAL VASCULAR 07/04/2019 [id number] / / [id number] documented as of this encounter Advance Directives Healthcare Agents on File Name Relationship Healthcare Agent Relationship Communication Ivonnepetra Martinez Other - (no specific identity) Health Care Agent Care Teams Director Financial Planning Relationship Specialty Start Date End Date Petra Marx MD [address] [place] [address] PCP - General Internal Medicine 11/09/23 documented as of this encounter
--- OUTSIDE RECORDS SUMMARY | 2024-06-19 17:48 | External Medical Summary | Summary of Care ---
Author Name Unknown Organization [facility] Address [address] [place] [address] Phone [phone] Care Team Providers Care Curer Acid Drum Name Role Phone Aaron Marx MD Primary Care Provider Reason for Visit * Reason Comments eRx-Medication Refill Encounter Details Date Type Department Care Team (Late st Contact Info) Description 05/31/2024 Refill Family Practice [facility] [address] [facility] [place] [address] Aaron Marx MD [address] [facility] [place] [address] Allergies Active Allergy Reactions Criticality Noted Date Comments Aminoglycosides Nebcin Atropine ? allergy to Atropine Cephalosporins Keflin Dipyridamole Persantine Meperidine And Related ? allergy to Demerol Metolazone 10/03/2021 Severe hypokalemia Parasympathomimetics Urecholine Piperacillin Sod-Tazobactam So Rash 02/03 Prochlorperazine Salicylates ASA Sulfa Antibiotics Bactrim Venlafaxine 02/03/2013 Nervous reaction documented as of this encounter (statuses as of 06/02/2024) Medications Medication Sig Dispensed Refills Start Date [...] needed for Pain, Moderate. 02/14/20 24 Active Maurice Carbajal In Vitro Strip (Glucose [...] daily. 30 Tablet 11 03/23/20 24 Active Nurtec 75 MG Oral Tablet Disintegrating (Rimegepant Sulfate)Indication s:New onset of headaches after age 50 1 at onset of migraine max 1 dose in 24 hours 10 Tablet 5 04/01/20 24 Active Pregabalin 25 MG Oral Capsule [...] MEALS. 60 Tablet 05/08/20 24 Active Creon 02109-11102 UNIT Oral Capsule Delayed Release Particles (Pancrelipase (Lya-Toxq-Dirr)) TAKE FOUR CAPSULES THREE TIMES DAILY 720 [...] Nostril daily 16 g 06/02/20 24 Active Fluticasone Propionate 50 MCG/ACT Nasal Suspension (Flonase) Administer 1 Brady into each nostril in the morning. 12/23/19 24 024 Discontinued documented as of this encounter (statuses as of 06/02/2024) Active Problems Problem Noted Date Diagnosed Date Colon polyps 05/24/2024 Overview: 05/2024. Done at [facility]. Three small. Clostridioides difficile infection 03/23/2024 Chronic diastolic congestive heart failure 11/09 Secondary hyperparathyroidism of renal origin Hypoglycemia 06/29/2023 Last Assessment & Plan: Glucose 103 during visit. Reordered freestyle Larisa-patient had previously. Follows with endocrinology at [facility] Stage 3a chronic kidney disease [...] as of this encounter (statuses as of 06/02/2024) Resolved Problems Problem Noted Date Diagnosed Date [...] rinse after steroid. Test performed by Lazarus AIRPLANE FUELER CPFT Moderate persistent asthma w ithout complication 10/11/2019 08/09/2021 Overview: In Check dial performed to assess inhaler technique: 11/25/19 Name of inhalers Albuterol Pass: Yes at 40L/min and Trelegy Ellipta Pass: Yes at 35L/min. Encourage to take deep breaths, use aero chamber, and rinse after steroid. Test performed by Lazarus AIRPLANE FUELER CPFT Ulcer of left lower extremit y, [...] rinse after steroid. Test performed by Lazarus AIRPLANE FUELER CPFT Groupl B, by GOLD 2017 classification [...] rinse after steroid. Test performed by Lazarus AIRPLANE FUELER CPFT Acute. Anemia 10/19/2017 08/09/2021 Malabsorption 10/19/2017 [...] as of this encounter (statuses as of 06/02/2024) Immunizations Name Administration Dates Next Due COVID-19 mRNA, LNP-s, No Pre serve, 2-Dose Series ([employer]) 07/12/2021,05/16/2021,11/18/2020,11/04 COVID-19, LNP-s, No Preserve , Josue-sucrose, Ages 12+ ([employer]) 05/16/2022 Covid-19, Mrna, Lnp-s, Pf, B ivalent, 30 Mcg, IM, 12 yrs and above ([employer]) 08/06/2022 Pneumococcal Conjugate Vacc, 13 Valent (Prevnar) [...] encounter Miscellaneous Notes * Telephone Encounter - Aaron Marx MD - 06/02/2024 9:45 PM EDT Signed Prescriptions: Disp Refills Fluticasone Propionate 50 MCG/ACT Nasal Funes*16 g 0 Si spray Via Nostril daily Authorizing Provider: AARON MARX * Telephone Encounter - Christopher Patino [facility] - 06/02/2024 10:01 AM EDT Pending Prescriptions: Disp Refills Fluticasone Propionate 50 MCG/ACT Nasal Funes*16 g 0 Si spray Via Nostril daily * Telephone Encounter - Christopher Patino [facility] - 06/02/2024 10:01 AM EDT Pharmacists cannot authorize refills for meds listed as "historical" in chart. Please approve if appropriate. Thanks, Christopher Patino, AngD Clinical Pharmacist [facility] ([facility]) [phone] 06/02/2024, 10:01 AM documented in this encounter Plan of Treatment Upcoming Encounters Date Type Department Care Team (Late st Contact Info) Description 06/15/2024 12:45 PM EDT Immunization/Injec tion Hematology/Oncology Treatment, [address] [place] [phone] Jolanta, Chair [address] [place] [address] 06/22/2024 11:40 AM EDT Office Visit Family Practice [facility] [address] [place] [address] Aaron Marx MD [address] [place] [address] 06/23/2024 10:00 AM EDT Office Visit Neurology [address] [place] [address] Rani Varela MD [address] [place] [address] [place] [address] 06/30/2024 12:30 PM EDT [facility] Visit [facility] [address] [place] [address] Sally Bonilla, RANDELL [address] [place] [address] 07/04/2024 10:30 AM EDT Office Visit [facility] Disorders [facility]tr [facility] [address] [place] [address] [phone] Andria Goldstein CRNP [address] [place] [address] 07/11/2024 2:00 PM EDT Scheduled Telephone Interventional Pain Center, [facility] [address] [place] [address] [place], Nurse Phone Call Interventional Pain [place] [address] [address] [place] [address] 08/03/2024 12:00 PM EDT Office Visit Family Practice [facility] [address] [place] [address] Aaron Marx MD [address] [place] [address] 08/19/2024 10:00 AM EST [facility] Visit [facility] [address] [place] [address] Aaron Marx MD [address] [place] [address] 08/30/2024 12:00 PM EST Office Visit Gastroenterology, [facility] [address] [place] [address] Breann Jerome CRNP [address] [place] [address] 09/14/2024 11:00 AM EST Nurse Only Ancillary [address] [place] [address] Nurse Parvez [address] [place] [address] 02/02/2025 12:30 PM EDT Imaging Radiology [address] [place] [address] Health Maintenance Due Date Last Done Comments [place] 1997 Sigmoidoscopy 1997 Fecal Occult Blood Test [...] Additional history exists CKD HGB USE SMARTSET 18280 03/17/202503/17, 03/17/2024, 12/25/2023, Additional history exists CKD PHOS USE SMARTSET 48652 03/17/202503/05, 02/18/2024, 05/01/2023, Additional history exists O2 [...] D LEVEL ONCE IN A LIFETIME-USE SMARTSET# [id number] Completed 02/18/2024, 05/01/2023, 12/28/2014, Additional history exists [...] this encounter Medical Devices Implanted Type Area Lehr Tender Device Identifier Shelf Expiration Date Model / Serial / Lot Port Power Mri W/8fr Cath - [id number] Implanted:Qty : 1 on 11/02/2017 by Ignacio Guevara MD at OR [facility] Right: Internal Jugular CR BARD : PERIPHERAL VASCULAR 07/04/2019 [id number] / / [id number] documented as of this encounter Advance Directives Healthcare Agents on File Name Relationship Healthcare Agent Relationship Communication Ivonnepetra Martinez Other - (no specific identity) Health Care Agent Care Teams Curer Acid Drum Relationship Specialty Start Date End Date Aaron Marx MD [address] [facility] [place] [address] PCP - General Internal Medicine 11/09/23 documented as of this encounter
--- OUTSIDE RECORDS SUMMARY | 2024-06-19 17:48 | External Medical Summary | Summary of Care ---
Author Name Unknown Organization [facility] Address [address] [place] [address] Phone [phone] Care Team Providers Care Element Winding Machine Tender Name Role Phone Petra Marx MD Primary Care Provider Reason for Visit * Reason Onset Date Comments Advice 03/03/2024 Encounter Details Date Type Department Care Team (Late st Contact Info) Description 03/03/2024 Telephone Access Center, [place] [address] [facility] *DO NOT REMOVE THIS DEPARTMENT* [place] [address] Services, Scheduling [address] [place] [address] Advice Allergies Active Allergy Reactions Criticality Noted [...] call 911. 25 Tablet 09/08/20 23 Active Fluticasone Propionate 50 MCG/ACT Nasal Suspension (Flonase) Administer 1 Monarch into each nostril in the morning. 12/23/19 24 Active Albuterol Sulfate HFA 108 (90 Base) [...] needed for Pain, Moderate. 02/14/20 24 Active OneWilfredouch Vershira In Vitro Strip (Glucose Blood) Test as directed. Use up to 4 x day Active Breo Ellipta 200-25 MCG/ACT Inhalation Aerosol Powder Breath Activated Inhale 1 Puff by mouth daily. 60 Blister Dosing Unit 12/25/19 24 024 Discontinued(Re fill) Creon 20976-82668 UNIT Oral Capsule Delayed Release Particles (Pancrelipase (Tax-Kzlg-Zcwv)) TAKE 4 CAPSULES THREE TIMES DAILY 720 Capsule 12/25/19 24 024 Discontinued Levothyroxine Sodium 88 MCG Oral Tablet (Levoxyl) Take 1 Tablet by mouth in the morning. 90 Tablet 1 12/25/19 24 024 Discontinued(Re fill) Ondansetron HCl 4 MG Oral TabletIndications: Nausea and vomiting, unspecified vomiting type Take 1 Tablet by mouth every 6 hours as needed for Nausea. 30 Tablet 01/07/20 24 024 Discontinued(Re fill) Montelukast Sodium 10 MG Oral Tablet (Singulair) TAKE ONE TABLET AT BEDTIME 30 Tablet 2 01/20/20 24 024 Discontinued Famotidine 20 MG Oral Tablet (Pepcid) TAKE ONE TABLET AT BEDTIME 30 Tablet 2 01/20/20 24 024 Discontinued Omeprazole 20 MG Oral Capsule Delayed Release (PriLOSEC) TAKE ONE CAPSULE EVERY DAY and TAKE ONE CAPSULE AT BEDTIME 60 Capsule 2 01/26/20 24 024 Discontinued(Re fill) lamoTRIgine 25 MG Oral Tablet (LaMICtal) Take 1 tablet in the morning and 2 tablets at bedtime 90 Tablet 2 01/25/20 24 024 Discontinued(Re fill) Ondansetron 4 MG Oral Tablet Disintegrating (Zofran)Indication s:Nausea and vomiting, unspecified vomiting type Place 1 Tablet on tongue every 8 hours as needed for Nausea or Vomiting. 20 Tablet 1 02/18/20 24 024 Discontinued(Sd dication List Clean Up) Pregabalin 25 MG Oral Capsule (Lyrica)Indication s:Peripheral polyneuropathy Take 1 Capsule by mouth in the morning and 1 Capsule at noon and 1 Capsule before bedtime. 90 Capsule 02/18/20 24 024 Discontinued rOPINIRole HCl 0.5 MG Oral Tablet Take 1 Tablet by mouth at bedtime. With food. 30 Tablet 02/22/20 24 024 Discontinued Rosuvastatin Calcium 10 MG Oral Tablet (Crestor) Take 1 Tablet by mouth in the morning. 30 Tablet 02/22/20 24 024 Discontinued valACYclovir HCl 500 MG Oral Tablet (Valtrex) Take 1 tablet every other day 15 Tablet 02/26/20 24 024 Discontinued documented as of this encounter (statuses as of 06/02/2024) Active Problems Problem Noted Date Diagnosed Date Colon polyps 05/24/2024 Overview: 05/2024. Done at [facility]. Three small. Clostridioides difficile infection 03/23/2024 Chronic diastolic congestive heart failure 11/09 Secondary hyperparathyroidism of renal origin Hypoglycemia 06/29/2023 Last Assessment & Plan: Glucose 103 during visit. Reordered freestyle Larisa-patient had previously. Follows with endocrinology at [facility] Stage 3a chronic kidney disease [...] rinse after steroid. Test performed by Lazarus SOLE DYER CPFT Moderate persistent asthma w ithout complication 10/11/2019 08/09/2021 Overview: In Check dial performed to assess inhaler technique: 11/25/19 Name of inhalers Albuterol Pass: Yes at 40L/min and Trelegy Ellipta Pass: Yes at 35L/min. Encourage to take deep breaths, use aero chamber, and rinse after steroid. Test performed by Lazarus SOLE DYER CPFT Ulcer of left lower extremit y, [...] rinse after steroid. Test performed by Lazarus SOLE DYER CPFT Groupl B, by GOLD 2017 classification [...] rinse after steroid. Test performed by Lazarus SOLE DYER CPFT Acute. Anemia 10/19/2017 08/09/2021 Malabsorption 10/19/2017 [...] mRNA, LNP-s, No Pre serve, 2-Dose Series (Jambo) 07/12/2021,05/16/2021,11/18/2020,11/04 COVID-19, LNP-s, No Preserve , Josue-sucrose, Ages 12+ (Pfizer) 05/16/2022 Covid-19, Mrna, Lnp-s, Pf, B ivalent, 30 Mcg, IM, 12 yrs and above (Jambo) 08/06/2022 Pneumococcal Conjugate Vacc, 13 Valent (Prevnar) [...] Telephone Encounter - Petra Marx MD - 03/04/2024 8:52 AM EDT Trish - can you check in with patient? See also other encounter for other questions about diarrhea, fluid, etc. * Telephone Encounter - Katie Baer MED ASSIST - 03/04/2024 8:22 AM EDT FYI * Telephone Encounter - Evette Elizabeth OSA - 03/03/2024 2:20 PM EDT Calling to advise that pt has fallen twice this week, both times occurred when she was bending overto do something. She does not have any injuries and does not wish to have any follow ups. No bruising, Unwitnessed, was able to get herself up. documented in this encounter Plan of Treatment Upcoming Encounters Date Type Department Care Team (Late st Contact Info) Description 06/15/2024 12:45 PM EDT Immunization/Injec tion Hematology/Oncology Treatment, [place] [address] [place] [phone] Jolanta, Chair 7 Hem On[address] [facility] [address] 06/22/2024 11:40 AM EDT Office Visit [facility] [address] [place] [address] Petra Marx MD [address] [place] [address] 06/23/2024 10:00 AM EDT Office Visit Neurology [facility] [address] [facility] [place] [address] Rani Varela MD [address] [facility] [place] [address] 06/30/2024 12:30 PM EDT [facility] Visit [facility] [place], [facility] [address] [place] [address] Sally Bonilla RN [address] [facility] [place] [address] 07/04/2024 10:30 AM EDT Office Visit Sleep Disorders Ctr [facility] [address] [place] [phone] Andria Goldstein CRNP 132 [facility] [place] [address] 07/11/2024 2:00 PM EDT Scheduled Telephone Interventional Pain Center, [facility] [address] [place] [address] Darryn, Nurse Phone Call Interventional Pain [facility] [address] [place] [address] 08/03/2024 12:00 PM EDT Office Visit Family [facility] [address] [place] [address] Petar Marx MD [address] [place] [address] 08/19/2024 10:00 AM EST Office Visit Family [facility] [address] [place] [address] Petra Marx MD [address] [place] [address] 08/30/2024 12:00 PM EST Office Visit Gastroenterology, [facility] [address] [place] [address] Breann Jerome CRNP [address] [place] [address] 09/14/2024 11:00 AM EST Nurse Only Ancillary [address] [place] [address] [place], Nurse Annual [address] [place] [address] 02/02/2025 12:30 PM EDT Imaging Radiology [address] [place] [address] Health Maintenance Due Date Last Done Comments [...] Additional history exists CKD HGB USE SMARTSET 31780 03/17/202503/17, 03/17/2024, 12/25/2023, Additional history exists CKD PHOS USE SMARTSET 02711 03/17/202503/05, 02/18/2024, 05/01/2023, Additional history exists O2 [...] D LEVEL ONCE IN A LIFETIME-USE SMARTSET# 48590 Completed 02/18/2024, 05/01/2023, 12/28/2014, Additional history exists [...] this encounter Medical Devices Implanted Type Area Ship Purser Device Identifier Shelf Expiration Date Model / Serial / Lot Port Power Mri W/8fr Cath - [id number] Implanted:Qty : 1 on 11/02/2017 by Ignacio Guevara MD at OR [facility] Right: Internal Jugular CR BARD : PERIPHERAL VASCULAR 07/04/2019 [id number] / / [id number] documented as of this encounter Additional Health Concerns Infection Onset Date Last Indicated Resolved Time Gastrointestinal Rule-Out 03/18/2024 03/18/2024 10:15 AM EDT C. difficile Rule-Out 03/18/2024 03/18/20242023 11:49 PM EDT C. difficile 03/18/2024 03/18/2024 04/17/2024 12:2 0 AM EDT documented as of this encounter Advance Directives Healthcare Agents on File Name Relationship Healthcare Agent Relationship Communication Ivonne Martinez Other - (no specific identity) Health Care Agent Care Teams Element Winding Machine Tender Relationship Specialty Start Date End Date Petra Marx MD [address] [place] [address] PCP - General Internal Medicine 11/09/23 documented as of this encounter
--- OUTSIDE RECORDS SUMMARY | 2024-06-19 17:48 | External Medical Summary | Summary of Care ---
Author Name Unknown Organization [facility] Address [address] [place] [address] Phone [phone] Care Team Providers Care Manager Coding Name Role Phone Petra Marx MD Primary Care Provider Reason for Visit * Reason Onset Date Comments Precert In Process 06/03/2024 03 [facility] PEND [facility] QUESTION [facility] Encounter Details Date Type Department Care Team (Late st Contact Info) Description 06/03/2024 Telephone Neurology [facility] [address] [facility] [place] [address] Rani Varela MD [address] [facility] [place] [address] Precert In Process (03 NIR[facility]AL PENDING CLINI... Allergies Active Allergy Reactions Criticality Noted Date Comments Aminoglycosides Nebcin Atropine ? allergy to Atropine Cephalosporins Keflin Dipyridamole Persantine Meperidine And Related ? allergy to Demerol Metolazone 10/03/2021 Severe hypokalemia Parasympathomimetics Urecholine Piperacillin Sod-Tazobactam So Rash 02/03 Prochlorperazine Salicylates ASA Sulfa Antibiotics Bactrim Venlafaxine 02/03/2013 Nervous reaction documented as of this encounter (statuses as of 06/10/2024) Medications Medication Sig Dispensed Refills Start Date [...] BEFORE MEALS. 60 Tablet 05/08/2024 Active Creon 79136-83055 UNIT Oral Capsule Delayed Release Particles (Pancrelipase (Isx-Izqa-Bsxq)) TAKE FOUR CAPSULES THREE TIMES DAILY 720 [...] as of this encounter (statuses as of 06/10/2024) Active Problems Problem Noted Date Diagnosed Date Colon polyps 05/24/2024 Overview: 05/2024. Done at [facility]. Three small. Clostridioides difficile infection 03/23/2024 Chronic diastolic congestive heart failure 11/09 Secondary hyperparathyroidism of renal origin Hypoglycemia 06/29/2023 Last Assessment & Plan: Glucose 103 during visit. Reordered freestyle Larisa-patient had previously. Follows with endocrinology at [facility] Stage 3a chronic kidney disease [...] as of this encounter (statuses as of 06/10/2024) Resolved Problems Problem Noted Date Diagnosed Date [...] rinse after steroid. Test performed by Lazarus UNIT NURSE CPFT Moderate persistent asthma w ithout complication 10/11/2019 08/09/2021 Overview: In Check dial performed to assess inhaler technique: 11/25/19 Name of inhalers Albuterol Pass: Yes at 40L/min and Trelegy Ellipta Pass: Yes at 35L/min. Encourage to take deep breaths, use aero chamber, and rinse after steroid. Test performed by Lazarus UNIT NURSE CPFT Ulcer of left lower extremit [...] rinse after steroid. Test performed by Lazarus UNIT NURSE CPFT Acute. Anemia 10/19/2017 08/09/2021 Malabsorption [...] as of this encounter (statuses as of 06/10/2024) Immunizations Name Administration Dates Next Due COVID-19 mRNA, LNP-s, No Pre serve, 2-Dose Series ([employer]) 07/12/2021,05/16/2021,11/18/2020,11/04 COVID-19, LNP-s, No Preserve , Josue-sucrose, Ages 12+ (Pfizer) 05/16/2022 Covid-19, Mrna, Lnp-s, Pf, B ivalent, 30 Mcg, IM, 12 yrs and above ([employer]) 08/06/2022 Influenza, Whole Virus 08/19/2000 Pneumococcal Conjugate [...] Self- administered - route pre-cert request to [id number] See corresponding visit note(s) for additional supporting clinical information. Office Information: Prescriber: Rani Varela MD documented in this encounter Plan of Treatment Upcoming Encounters Date Type Department Care Team (Late st Contact Info) Description 06/15/2024 12:45 PM EDT Immunization/Injec tion Hematology/Oncology Treatment, [place] [address] [place] [phone] Jolanta, Chair 7 Hem Onc [facility] [address] [facility] [place] [address] 06/22/2024 11:40 AM EDT Office Visit Family Practice [facility] [address] [place] [address] Petra Marx MD [address] [place] [address] 06/23/2024 10:00 AM EDT Office Visit Neurology [facility] [address] [facility] [place] [address] Rani Varela MD [address] [facility] [place] [address] 06/30/2024 12:30 PM EDT [facility], [facility] [address] [place] [address] Sally Bonilla, RN [address] [place] [address] 07/04/2024 10:30 AM EDT Office Visit Sleep Disorders Ctr [facility] [address] [place] [phone] Andria Goldstein CRNP [address] [place] [address] 07/11/2024 2:00 PM EDT Scheduled Telephone Interventional Pain Center, [facility] [address] [place] [address] Darryn Nurse Phone Call Interventional Pain [facility] [address] [place] [address] 08/03/2024 12:00 PM EDT Office Visit [facility] [address] [place] [address] Petra Marx MD [address] [place] [address] 08/19/2024 10:00 AM EST Office Visit [facility] [address] [place] [address] Petra Marx MD [address] [place] [address] 08/30/2024 12:00 PM EST Office Visit Gastroenterology, [facility] [address] [place] [address] Breann Jerome CRNP [address] [place] [address] 09/14/2024 11:00 AM EST Nurse Only Ancillary [address] [place] [address] [place], Nurse [address] [place] [address] 02/02/2025 12:30 PM EDT Imaging Radiology [address] [place] [address] Health Maintenance Due Date Last Done Comments [...] Additional history exists CKD HGB USE SMARTSET 43389 03/17/202503/17, 03/17/2024, 12/25/2023, Additional history exists CKD PHOS USE SMARTSET 49294 03/17/202503/05, 02/18/2024, 05/01/2023, Additional history exists O2 [...] D LEVEL ONCE IN A LIFETIME-USE SMARTSET# 78996 Completed 02/18/2024, 05/01/2023, 12/28/2014, Additional history exists [...] this encounter Medical Devices Implanted Type Area Post Doctoral Researcher Device Identifier Shelf Expiration Date Model / Serial / Lot Port Power Mri W/8fr Cath - [id number] Implanted:Qty : 1 on 11/02/2017 by Ignacio Guevara MD at OR [facility] Right: Internal Jugular CR BARD : PERIPHERAL VASCULAR 07/04/2019 [id number] / / [id number] documented as of this encounter Advance Directives Healthcare Agents on File Name Relationship Healthcare Agent Relationship Communication Ivonnepetra Martinez Other - (no specific identity) Health Care Agent Care Teams Manager Coding Relationship Specialty Start Date End Date Petra Marx MD [address] [place] [address] PCP - General Internal Medicine 11/09/23 documented as of this encounter
--- OUTSIDE RECORDS SUMMARY | 2024-06-19 17:48 | External Medical Summary | Summary of Care ---
Author Name Unknown Organization [facility] Address [address] [place] [address] Phone [phone] Care Team Providers Care Tech Writer Name Role Phone Petra Marx MD Primary Care Provider Reason for Referral * Evaluate & Treat - Unlimited Visits (Within 30 days (routine)) - Authorized Specialty Diagnoses / Procedures Referred By Varghese pillai Referred To Contact Podiatry Diagnoses Overgrown toenails Petra Marx MD [address] [employer] [place] [address] Referral ID Status Reason Start Date Expiration Date Visits Requested Visits Authorized [id number] Authorized Specialty Services Required 06/07/[phone] Question Answer Referral Priority Within 30 days (routine) Where should this appointment be scheduled? External Which condition are you referring this patient for? Nail trimming Medicare Patient? No Reason for Visit * Reason Onset Date Comments Information 06/07/2024 Encounter Details Date Type Department Care Team (Late st Contact Info) Description 06/07/2024 Telephone Family Practice [facility] [address] [employer] [place] [address] Petra Marx MD [address] [employer] [place] [address] Information (/) Allergies Active Allergy Reactions Criticality Noted Date [...] BEFORE MEALS. 60 Tablet 05/08/2024 Active Creon 30655-10115 UNIT Oral Capsule Delayed Release Particles (Pancrelipase (Iju-Vids-Ktat)) TAKE FOUR CAPSULES THREE TIMES DAILY 720 [...] Colon polyps 05/24/2024 Overview: 05/2024. Done at [facility]. Three small. Clostridioides difficile infection 03/23/2024 Chronic diastolic congestive heart failure 11/09 Secondary hyperparathyroidism of renal origin Hypoglycemia 06/29/2023 Last Assessment & Plan: Glucose 103 during visit. Reordered freestyle Larisa-patient had previously. Follows with endocrinology at [facility] Stage 3a chronic kidney disease [...] steroid. Test performed by Lazarus GRANADOS CPFT Moderate persistent asthma w ithout complication [...] History of wrist fracture 06/30/2019 Overview: Open Karen fx Historical. Chronic diastolic heart failure 05/13/2019 [...] rinse after steroid. Test performed by Lazarus CARPET JACK CPFT Acute. Anemia 10/19/2017 08/09/2021 Malabsorption 10/19/2017 [...] mRNA, LNP-s, No Pre serve, 2-Dose Series ([employer]) 07/12/2021,05/16/2021,11/18/2020,11/04 COVID-19, LNP-s, No Preserve , Josue-sucrose, [...] ages 0-17 years) Not on file 11/19/2023 Are you homeless or worried that [...] encounter Miscellaneous Notes * Telephone Encounter - Annabelle Myrick OSA - 06/07/2024 3:31 PM EDT Faxed to number provided * Telephone Encounter - Matthew Tran MD - 06/07/2024 3:17 PM EDT Please fax * Telephone Encounter - Nancy Da Silva LPN - 06/07/2024 1:57 PM EDT Patient is calling. She needs a podiatry referral. She is going to see Dr. Bear from [place]. He is coming to her apartment tomorrow to cut her toenails. Fax is [phone] documented in this encounter Plan of Treatment Upcoming Encounters Date Type Department Care Team (Late st Contact Info) Description 06/15/2024 12:45 PM EDT Immunization/Injec tion Hematology/Oncology Treatment, [place] [address] [place] [phone] [place], Chair 7 Hem Onc [facility] 200 [facility] [place] [address] 06/22/2024 11:40 AM EDT Office Visit Family Practice [facility] system [address] [place] [address] Ptera Marx MD [address] [place] [address] 06/23/2024 10:00 AM EDT Office Visit Neurology [facility] 200 [facility] [place] [address] Rani Varela MD 200 [facility] [place] [address] 06/30/2024 12:30 PM EDT Home Visit [facility] [place], [facility] [address] [place] [address] Sally Bonilla RN [address] [place] [address] 07/04/2024 10:30 AM EDT Office Visit Sleep Disorders Ctr [facility] [address] [place] [phone] Andria Goldstein CRNP [address] [place] [address] 07/11/2024 2:00 PM EDT Scheduled Telephone Interventional Pain Center, [facility] system [address] [place] [address] Darryn Nurse Phone Call Interventional Pain [facility] [address] [place] [address] 08/03/2024 12:00 PM EDT Office Visit [facility] [address] [place] [address] Petra Marx MD [address] [place] [address] 08/19/2024 10:00 AM EST Office Visit [facility] [address] [place] [address] Petra Marx MD [address] [place] [address] 08/30/2024 12:00 PM EST Office [facility], [facility] [place] [address] Breann Jerome CRNP [address] [place] [address] 09/14/2024 11:00 AM EST Nurse Only Ancillary [address] [place] [address] Parvez, Nurse [address] [place] [address] 02/02/2025 12:30 PM EDT Imaging Radiology [address] [place] [address] Scheduled Referrals Name Type Priority Associated Diagnoses Orde r Schedule PODIATRY REFERRAL OP Referral Within 30 days (routine) Overgrown toenails Ordered: 06/07/2024 Health Maintenance Due Date Last Done Comments Cologuard 1997 Sigmoidoscopy 1997 Fecal Occult Blood Test 08/09/2011 08/09/2011/14/2009, 12/16/2007, Additional history exists Albumin/Creatinine Ratio 05/01/2024 05/01/2023, 03/05 Influenza Vaccine (FLU shot) (#1) 2024 06/09/2023, 06/12/2022, 06/26/2020, Additional history exists Adult Wellness Visit 09/08/2024 09/08/2023, 09/03/2022, 05/27/2021 Depression Monitoring 09/08/2024 09/08/2023 GFR 09/30/2024 03/31/2024, 03/05, 02/18/2024, Additional history exists TSH 10/31/2024 10/31/2023, 02/2023, 07/30/2022, Additional history exists Mammogram 01/31/2025 02/01/2024, 01/04, 01/29/2023, Additional history exists CKD HGB USE SMARTSET 81759 03/17/202503/17, 03/17/2024, 12/25/2023, Additional history exists CKD PHOS USE SMARTSET 46552 03/17/202503/05, 02/18/2024, 05/01/2023, Additional history exists O2 [...] D LEVEL ONCE IN A LIFETIME-USE SMARTSET# 78461 Completed 02/18/2024, 05/01/2023, 12/28/2014, Additional history exists [...] this encounter Medical Devices Implanted Type Area Pediatric Psychologist Device Identifier Shelf Expiration Date Model / Serial / Lot Port Power Mri W/8fr Cath - [id number] Implanted:Qty : 1 on 11/02/2017 by Ignacio Guevara MD at OR [facility] Right: Internal Jugular CR BARD : PERIPHERAL VASCULAR 07/04/2019 [id number] / / [id number] documented as of this encounter Visit Diagnoses Diagnosis Overgrown toenails- Primary Other specified disease of nail documented in this encounter Advance Directives Healthcare Agents on File Name Relationship Healthcare Agent Relationship Communication Ivonne Michelle Other - (no specific identity) Health Care Agent Care Teams Tech Writer Relationship Specialty Start Date End Date Petra Marx MD [address] [facility] [place] [address] PCP - General Internal Medicine 11/09/23 documented as of this encounter
--- OUTSIDE RECORDS SUMMARY | 2024-06-19 17:48 | External Medical Summary | Summary of Care ---
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 Trades Worker Name Role Phone Aaron Marx MD Primary Care Provider Reason for Visit * Reason Onset Date Comments Medication Refill 12/30/2023 Encounter Details Date Type Department Care Team (Late st Contact Info) Description 12/30/2023 Refill Family Practice [facility] [address] [facility] [place] [address] Aaron Marx MD [address] [facility] [place], [place] [id number] Neck pain* Allergies Active Allergy Reactions Criticality Noted Date [...] HFA 108 (90 Base) MCG/ACT Inhalation Aerosol SolutionIndicati ons:Moderate persistent asthma with exacerbation Inhale 2 Puffs by mouth every 6 hours as needed for Wheezing. 18 g 12/25/19 24 Active Calcitriol 0.5 MCG Oral Capsule (Rocaltrol) Take 1 Capsule by mouth in the morning and 1 Capsule before bedtime. 60 Capsule 12/25/19 24 Active Ipratropium-Albu terol 0.5-2.5 (3) MG/3ML Inhalation Solution (Duoneb) Inhale 3 mL via nebulizer every 4 hours as needed for Wheezing. 360 mL 12/25/19 24 Active Diclofenac Sodium 1 % External Gel (Voltaren)Indica tions:Neck pain Apply topically to affected area 4 times a day as needed (neck pain). Apply to back of neck 150 g 2 12/31/19 24 Active OneTouch Verio In Vitro Strip (Glucose Blood)Indication s:Type 2 diabetes mellitus (HCC) Use up to 4 times a day E11.9 100 Strip 11 02/10/20 21 024 Discontinued(Hi dication List Clean Up) Calcium Carb-Cholecalcif roshni 600-10 MG-MCG Oral TabletIndication s:Postsurgical malabsorption, not elsewhere classified Take 2 Tablets by mouth in the morning and 2 Tablets at noon and 2 Tablets before bedtime. 180 Tablet 5 07/20/20 23 024 Discontinued Fluticasone Propionate 50 MCG/ACT Nasal Suspension (Flonase) Administer 1 [place] into each nostril in the morning. 12/23/19 24 024 Discontinued Breo Ellipta 200-25 MCG/ACT Inhalation Aerosol Powder Breath Activated Inhale 1 Puff by mouth daily. 60 Blister Dosing Unit 12/25/19 24 024 Discontinued(Re fill) Creon 81144-25042 UNIT Oral Capsule Delayed Release Particles (Pancrelipase (Bfp-Thbc-Odmd)) TAKE 4 CAPSULES THREE TIMES DAILY 720 Capsule 12/25/19 24 024 Discontinued DULoxetine HCl 30 MG Oral Capsule Delayed Release Particles (Cymbalta) Take 1 Capsule by mouth in the morning. 12/25/19 24 024 Discontinued(Re fill) lamoTRIgine 25 MG Oral Tablet (LaMICtal) Take 1 Tablet by mouth in the morning and 1 Tablet before bedtime. 1 tablet in the morning. 2 tablets at bedtime. 90 Tablet 12/25/19 24 024 Discontinued(Re fill) Levothyroxine Sodium 88 MCG Oral Tablet (Levoxyl) Take 1 Tablet by mouth in the morning. 90 Tablet 1 12/25/19 24 024 Discontinued(Re fill) Montelukast Sodium 10 MG Oral Tablet (Singulair) Take 1 Tablet by mouth at bedtime. 30 Tablet 12/25/19 24 024 Discontinued Omeprazole 20 MG Oral Capsule Delayed Release (PriLOSEC) TAKE ONE CAPSULE EVERY DAY and TAKE ONE CAPSULE AT BEDTIME 60 Capsule 12/25/19 24 024 Discontinued(Re fill) rOPINIRole HCl 0.5 MG Oral Tablet Take 1 Tablet by mouth at bedtime. With food. 30 Tablet 12/25/19 24 024 Discontinued(Re fill) Rosuvastatin Calcium 10 MG Oral Tablet (Crestor) Take 1 Tablet by mouth in the morning. 30 Tablet 12/25/19 24 024 Discontinued(Re fill) valACYclovir HCl 500 MG Oral Tablet (Valtrex) Take 1 Tablet by mouth every other day. In the morning. 15 Tablet 12/25/19 24 024 Discontinued(Re fill) Pregabalin 25 MG Oral Capsule (Lyrica) Take 1 Capsule by mouth in the morning and 1 Capsule at noon and 1 Capsule before bedtime. 90 Capsule 12/25/19 24 024 Discontinued Famotidine 20 MG Oral Tablet (Pepcid) Take 1 Tablet by mouth in the morning. 024 Discontinued Ondansetron HCl 4 MG Oral Tablet Take 1 Tablet by mouth every 12 hours as needed for Nausea. 20 Tablet 12/31/19 24 024 Discontinued(Hi dication List Clean Up) documented as of this encounter (statuses as of 06/07/2024) Active Problems Problem Noted Date Diagnosed Date Colon polyps 05/24/2024 Overview: 05/2024. Done at [facility]. Three small. Clostridioides difficile infection 03/23/2024 Chronic diastolic congestive heart failure 11/09 Secondary hyperparathyroidism of renal origin Hypoglycemia 06/29/2023 Last Assessment & Plan: Glucose 103 during visit. Reordered freestyle Larisa-patient had previously. Follows with endocrinology at [facility] Stage 3a chronic kidney disease 04/16/2023 COPD, [...] rinse after steroid. Test performed by Lazarus SALT LIFTER CPFT Moderate persistent asthma w ithout complication 10/11/2019 08/09/2021 Overview: In Check dial performed to assess inhaler technique: 11/25/19 Name of inhalers Albuterol Pass: Yes at 40L/min and Trelegy Ellipta Pass: Yes at 35L/min. Encourage to take deep breaths, use aero chamber, and rinse after steroid. Test performed by Lazarus SALT LIFTER CPFT Ulcer of left lower extremit y, [...] rinse after steroid. Test performed by Lazarus SALT LIFTER CPFT Groupl B, by GOLD 2017 classification [...] rinse after steroid. Test performed by Lazarus SALT LIFTER CPFT Acute. Anemia 10/19/2017 08/09/2021 Malabsorption 10/19/2017 [...] mRNA, LNP-s, No Pre serve, 2-Dose Series (XMLAW) 07/12/2021,05/16/2021,11/18/2020,11/04 COVID-19, LNP-s, No Preserve , Josue-sucrose, Ages 12+ (Pfizer) 05/16/2022 Covid-19, Mrna, Lnp-s, Pf, B ivalent, 30 Mcg, IM, 12 yrs and above (XMLAW) 08/06/2022 Pneumococcal Conjugate Vacc, 13 Valent (Prevnar) [...] 11/19/2023 Does the household have a re lar source of income? (Household - for ages [...] Telephone Encounter - Aaron Marx MD - 12/31/2023 10:47 PM EDT Signed Prescriptions: Disp Refills Diclofenac Sodium 1 % External Gel (Voltar*150 g 2 Sig: Apply topically to affected area 4 times a day as needed (neck pain). Apply to back of neck Authorizing Provider: AARON MARX Ondansetron HCl 4 MG Oral Tablet 20 Tab*0 Sig: Take 1 Tablet by mouth every 12 hours as needed for Nausea. Dell ayers Provider: AARON MARX * Telephone Encounter - Aaron Marx MD - 12/31/2023 10:46 PM EDT Small supply zofran provided. Discuss whether to continue at hosp discharge visit. * Telephone Encounter - Anitra Ambriz LPN - 12/31/2023 9:08 AM EDTPending Prescriptions: Disp Refills Diclofenac Sodium 1 % External Gel (Voltar* Sig: Apply topically to affected area. Apply to * Telephone Encounter - Anitra Ambriz LPN - 12/31/2023 9:02 AM EDT Where is she applying the voltaren? Zofran is not a chronic medication typically. When is she using it? How often? How many does she have left? Preference is to defer to hosp f/u visit next week to discuss. Called pt: She is applying the Voltaren to the back of her neck PRN. Pt is using the Zofran one in the morning and one before bedtime for nausea. She has 4 left. Takingthem DAILY. She has been nauseous every day ever since she has been d/c from the hospital. She dosehave belching frequently but no vomiting. Dose not feel confident that she will be able to make it until her 01/07/24 appt with the amount of Zofran she has left. * Telephone Encounter - Aaron Marx MD - 12/30/2023 9:05 PM EDT Pending Prescriptions: Disp Refills Diclofenac Sodium 1 % External Gel (Voltar* Sig: Apply topically to affected area. Apply to * Telephone Encounter - Aaron Marx MD - 12/30/2023 9:03 PM EDT Need more information. Where is she applying the voltaren? Zofran is not a chronic medication typically. When is she using it? How often? How many does she have left? Preference is to defer to hosp f/u visit next week to discuss. * Telephone Encounter - ArnAnna nash PHARM Tech - 12/30/2023 11:44 AM EDT Patient called in today stating that when she was in the hospital and rehab she was given voltaren and zofran and she is wondering if she can get these prescribed again. Please advise Thank you, Anna Gee Manager [facility] ([facility])(formerly Telepharmacy) 12/30/2023,11:44 AM documented in this encounter Plan of Treatment Upcoming Encounters Date Type Department Care Team (Late st Contact Info) Description 06/15/2024 12:45 PM EDT Immunization/Injec tion Hematology/[facility], [place] [facility] [id number] Jolanta, Chair 7 Hem On[address] [place] [address] 06/22/2024 11:40 AM EDT Office Visit Family Practice [facility] [address] [place] [address] Aaron Marx MD [address] [place] [address] 06/23/2024 10:00 AM EDT Office Visit Neurology [facility] [address] [facility] [place] [address] Rani Varela MD [address] [facility] [place] [address] 06/30/2024 12:30 PM EDT Home Visit [facility] [address] [place] [address] Sally Bonilla, RANDELL [address] [place] [address] 07/04/2024 10:30 AM EDT Office Visit Sleep Disorders Ctr [facility] [address] [place] [address] Andria Goldstein CRNP [address] [place] [address] 07/11/2024 2:00 PM EDT Scheduled Telephone Interventional Pain Center, [facility] [address] [place] [address] Darryn, Nurse Phone Call Interventional Pain [facility] [address] [place] [address] 08/03/2024 12:00 PM EDT Office Visit Family Practice [facility] [address] [place] [address] Aaron Marx MD [address] [place] [address] 08/19/2024 10:00 AM EST Office Visit [facility] [address] [place] [address] Aaron Marx MD [address] [place] [address] 08/30/2024 12:00 PM EST Office Visit Gastroenterology, [facility] [address] [place] [address] Breann Jerome CRNP [address] [place] [address] 09/14/2024 11:00 AM EST Nurse Only Ancillary [address] [place] [address] [place], Nurse [address] [place] [address] 02/02/2025 12:30 PM EDT Imaging Radiology [address] [place], [place] [address] Health Maintenance Due Date Last Done Comments [...] Additional history exists CKD HGB USE SMARTSET 92628 03/17/202503/17, 03/17/2024, 12/25/2023, Additional history exists CKD PHOS USE SMARTSET 53082 03/17/202503/05, 02/18/2024, 05/01/2023, Additional history exists O2 [...] D LEVEL ONCE IN A LIFETIME-USE SMARTSET# 39636 Completed 02/18/2024, 05/01/2023, 12/28/2014, Additional history exists [...] this encounter Medical Devices Implanted Type Area Wireless Retail Manager Device Identifier Shelf Expiration Date Model / Serial / Lot Port Power Mri W/8fr Cath - [id number] Implanted:Qty : 1 on 11/02/2017 by Ignacio Guevara MD at OR [facility] Right: Internal Jugular CR BARD : PERIPHERAL VASCULAR 07/04/2019 [id number] / / [id number] documented as of this encounter Visit Diagnoses Diagnosis Neck pain- Primary Cervicalgia documented in this encounter Additional Health Concerns Infection Onset [...] specific identity) Health Care Agent Care Teams Metal Casting Trades Worker Relationship Specialty Start Date End Date Aaron Marx MD 132 [facility] [place] [address] PCP - General Internal Medicine 11/09/23 documented as of this encounter
--- OUTSIDE RECORDS SUMMARY | 2024-06-19 17:48 | External Medical Summary | Summary of Care ---
Author Name Unknown Organization [facility] Address [address] [place] [address] Phone [phone] Care Team Providers Care Sisal Picker Name Role Phone Petra Marx MD Primary Care Provider Reason for Visit * Reason Onset Date Comments Precert In Process 06/03/2024 03 [facility] PEND [facility]G [facility]INIC QUESTION [facility] Encounter Details Date Type Department Care Team (Late st Contact Info) Description 06/03/2024 Telephone Neurology [facility] [address] [facility] [place] [address] Rani Varela MD [address] [place] [address] Precert In Process (03 [facility] PENDING CLINI... Allergies Active Allergy Reactions Criticality Noted Date Comments Aminoglycosides Nebcin Atropine ? allergy to Atropine Cephalosporins Keflin Dipyridamole Persantine Meperidine And Related ? allergy to Demerol Metolazone 10/03/2021 Severe hypokalemia Parasympathomimetics Urecholine Piperacillin Sod-Tazobactam So Rash 02/03 Prochlorperazine Salicylates ASA Sulfa Antibiotics Bactrim Venlafaxine 02/03/2013 Nervous reaction documented as of this encounter (statuses as of 06/08/2024) Medications Medication Sig Dispensed Refills Start Date [...] BEFORE MEALS. 60 Tablet 05/08/2024 Active Creon [id number] UNIT Oral Capsule Delayed Release Particles (Pancrelipase (Cwa-Yulv-Cdat)) TAKE FOUR CAPSULES THREE TIMES DAILY 720 [...] as of this encounter (statuses as of 06/08/2024) Active Problems Problem Noted Date Diagnosed Date Colon polyps 05/24/2024 Overview: 05/2024. Done at [facility]. Three small. Clostridioides difficile infection 03/23/2024 Chronic diastolic congestive heart failure 11/09 Secondary hyperparathyroidism of renal origin Hypoglycemia 06/29/2023 Last Assessment & Plan: Glucose 103 during visit. Reordered freestyle Larisa-patient had previously. Follows with endocrinology at [facility] Stage 3a chronic kidney disease 04/16/2023 [...] as of this encounter (statuses as of 06/08/2024) Resolved Problems Problem Noted Date Diagnosed Date [...] rinse after steroid. Test performed by Lazarus BRIM FLEXER CPFT Moderate persistent asthma w ithout complication 10/11/2019 08/09/2021 Overview: In Check dial performed to assess inhaler technique: 11/25/19 Name of inhalers Albuterol Pass: Yes at 40L/min and Trelegy Ellipta Pass: Yes at 35L/min. Encourage to take deep breaths, use aero chamber, and rinse after steroid. Test performed by Lazarus BRIM FLEXER CPFT Ulcer of left lower extremit y, [...] rinse after steroid. Test performed by Lazarus BRIM FLEXER CPFT Acute. Anemia 10/19/2017 08/09/2021 Malabsorption 10/19/2017 [...] as of this encounter (statuses as of 06/08/2024) Immunizations Name Administration Dates Next Due COVID-19 mRNA, LNP-s, No Pre serve, 2-Dose Series ([employer]) 07/12/2021,05/16/2021,11/18/2020,11/04 COVID-19, LNP-s, No Preserve , Josue-sucrose, Ages 12+ (Pfizer) 05/16/2022 Covid-19, Mrna, Lnp-s, Pf, B ivalent, 30 Mcg, IM, 12 yrs and above ([employer]) 08/06/2022 Influenza, Whole Virus 08/19/2000 Pneumococcal Conjugate [...] Self- administered - route pre-cert request to [id number] See corresponding visit note(s) for additional supporting clinical information. Office Information: Prescriber: Rani Varela MD documented in this encounter Plan of Treatment Upcoming Encounters Date Type Department Care Team (Late st Contact Info) Description 06/15/2024 12:45 PM EDT Immunization/Injec tion Hematology/Oncology Treatment, [place] [address] [facility] [address] [place] [id number] Jolanta, Chair 7 Hem Onc [facility] [address] [facility] [place] [address] 06/22/2024 11:40 AM EDT Office Visit Family Practice [facility] [address] [place] [address] Petra Marx MD [address] [place] [address] 06/23/2024 10:00 AM EDT Office Visit Neurology [facility] [address] [facility] [place] [address] Rani Varela MD [address] [facility] [place] [address] 06/30/2024 12:30 PM EDT Home Visit [facility] [place], [facility] [address] [place] [address] Sally Bonilla, RN [address] [place] [address] 07/04/2024 10:30 AM EDT Office Visit Sleep Disorders Ctr [facility] [address] [place] [phone] Andria Goldstein CRNP [address] [place] [address] 07/11/2024 2:00 PM EDT Scheduled Telephone Interventional Pain Center, [facility] [address] [place] [address] Darryn Nurse Phone Call Interventional Pain [facility] [address] [place] [address] 08/03/2024 12:00 PM EDT Office Visit [facility] [address] [place] [address] Petra Marx MD [address] [place] [address] 08/19/2024 10:00 AM EST Office Visit [facility] [address] [place] [address] Petra Marx MD [address] [place] [address] 08/30/2024 12:00 PM EST Office Visit Gastroenterology, [facility] [address] [place] [address] Breann Jerome CRNP [address] [place] [address] 09/14/2024 11:00 AM EST Nurse Only Ancillary [address] [place] [address] [place], Nurse [address] [place] [address] 02/02/2025 12:30 PM EDT Imaging Radiology [address] [place] [address] Health Maintenance Due Date Last Done Comments [...] Additional history exists CKD HGB USE SMARTSET 45677 03/17/202503/17, 03/17/2024, 12/25/2023, Additional history exists CKD PHOS USE SMARTSET 36824 03/17/202503/05, 02/18/2024, 05/01/2023, Additional history exists O2 [...] D LEVEL ONCE IN A LIFETIME-USE SMARTSET# 14598 Completed 02/18/2024, 05/01/2023, 12/28/2014, Additional history exists [...] this encounter Medical Devices Implanted Type Area Lecturer In Marketing Device Identifier Shelf Expiration Date Model / Serial / Lot Port Power Mri W/8fr Cath - [id number] Implanted:Qty : 1 on 11/02/2017 by Ignacio Guevara MD at OR [facility] Right: Internal Jugular CR BARD : PERIPHERAL VASCULAR 07/04/2019 [id number] / / [id number] documented as of this encounter Advance Directives Healthcare Agents on File Name Relationship Healthcare Agent Relationship Communication Ivonnepetra Martinez Other - (no specific identity) Health Care Agent Care Teams Sisal Picker Relationship Specialty Start Date End Date Petra Marx MD [address] [place] [address] PCP - General Internal Medicine 11/09/23 documented as of this encounter
--- NOTE | 2024-06-19 18:11 | Emergency Department Note ---
Impression & Plan Pneumonia ADMIT ED Provider Note HPI: History obtained from patient and bedside RN via EMS report. The patient is a 73-year-old female with history of sinus node dysfunction status post pacemaker, interstitial lung disease, osteoporosis, chronic kidney disease, chronic diastolic heart failure, presents the emergency department with altered mental status and lethargy. Patient reportedly was having issues this morning when her neighbors checked on her and refused EMS transport at that time. Later in the afternoon someone else came to check on the patient and she was very lethargic appearing and seemed to have some increased work of breathing and therefore EMS was contacted and the patient was brought to the ER to be assessed. On arrival here to the ED the patient is listless appearing but she is alert, she is able to answer my questions appropriately. She is not noted to have any focal deficits. Patient states she was up all night with some generalized illness, she states she did have some vomiting. Patient states she does not feel short of breath. Patient states she also has a headache. ROS: - Per HPI Differential Diagnosis: Sepsis, urinary tract infection, pneumonia, viral upper respiratory infection, stroke, intracranial hemorrhage, small bowel obstruction, acute cholecystitis, acute appendicitis, diverticulitis, viral gastroenteritis, acute kidney injury/dehydration, amongst other potential pathologies. *Outpatient medications and allergy history reviewed. PE: General: Alert, listless appearing HEENT: Normocephalic, trachea midline Eyes: Extraocular eye movement is intact, no scleral erythema Pulmonary: Clear to auscultation bilaterally, no wheezing Cardio: Regular rate and rhythm GI: Abdomen is soft to palpation, mild distention : No suprapubic tenderness MSK: No evidence of trauma or malformation of the extremities, no edema Skin: No evidence of rash Neuro: Alert, no focal deficits, equal bilateral food processing plant manager strength, symmetrical facial movements are appreciated Psychiatric: Cooperative INDEPENDENT INTERPRETATIONS: traffic monitor specialist: (As interpreted by myself): - An order was placed for continuous cardiac monitoring - Patient was noted to be in sinus rhythm with a rate of 99 EKG: (As interpreted by myself): Rate: 93 Rhythm: Normal sinus rhythm Intervals: Within normal limits ST changes: No ST elevation Time: 1834 Chest x-ray: (As interpreted by myself): Left lower lobe infiltrate Interventions provided in ED: -IV Zosyn, IV azithromycin Medical Decision Making: IV was established and lab work obtained, patient was placed on nuclear monitoring technician. Lab work shows no leukocytosis, hemoglobin is normal, platelet count is normal, venous blood gas was obtained that shows a normal pH and normal pCO2, CMP shows hypokalemia 2.9, BUN is elevated at 32, lactic acid is normal, troponin is elevated at 134 however this appears to be near the patient's baseline. BNP is mildly elevated at 315, procalcitonin is high at 20.20, urinalysis shows 1+ ketones, 3+ blood, urine nitrite is negative, 1+ leukocyte esterase is noted. Viral panel testing was obtained and is pending at the time of admission. Patient is saturating well on nasal cannula oxygen, I suspect her hypoxia is likely secondary to pneumonia, she denies any chest pain, low suspicion for PE at this time. In addition, troponin is stable in comparison to previous levels. EKG per my interpretation does not show any evidence of acute ischemic changes. I discussed the above findings and the patient's presentation with the on-call hospitalist for [facility], Dr. Ventura, and he is in agreement to admit the patient for further management. Consultants/Discussions held with other healthcare providers: -Hospitalist, Dr. Ventura Disposition discussion held by myself with: -Patient * CRITICAL CARE TIME: ( 43 ) minutes -Stabilization of patient with vital signs concerning for sepsis with hypotension and hypoxia and finding of pneumonia on chest x-ray requiring aggressive fluid resuscitation and initiation of broad-spectrum antibiotics, time spent at the bedside, interpretation of diagnostic studies, discussion with other healthcare providers and arrangement of admission. Diagnosis: 1. Pneumonia, acute, left lower lobe 2. Hypoxia, acute 3. Enteritis, acute 4. Hypokalemia, acute 5. Hypotension, acute, fluid responsive Disposition: Admission Tano Elizabeth DO Emergency Medicine Past Med/Surg History Problem List (Updated 06/19/24 @ 21:05 by Tano Elizabeth DO) Pneumonia (Acute) Diarrhea Change in bowel habits Small bowel obstruction Complicated UTI (urinary tract infection) Weakness (Acute) Abdominal pain (Acute) Nausea & vomiting (Acute) Acute UTI (Acute) Chronic headache Cystitis Neuropathy Nausea (Acute) Dyspnea on exertion Recurrent major depression in remission Pacemaker [employer], implanted 12/2022 (bradycardia) > pt does not know when last checked Status post placement of cardiac pacemaker Sinus node dysfunction Bronchiectasis pt unaware ILD (interstitial lung disease) Osteoporosis History of esophageal dilatation Hypothyroidism Secondary hyperparathyroidism Chronic kidney disease stage 3b GERD without esophagitis Reactive hypoglycemia Vitamin D deficiency Obesity Sleep apnea complex sleep apnea, BIPAP (non-compliant) Chronic sinusitis Pancreatic insufficiency chronic pancreatitis Asthma Chronic diastolic (congestive) heart failure Follows with [facility] cardiology Pernicious anemia (08/08/13) Medical History History of small bowel obstruction Sinus node dysfunction Bronchiectasis ILD (interstitial lung disease) Secondary hyperparathyroidism Pancreatic insufficiency Neuropathy Pernicious anemia History of sepsis 2019 [facility] Reactive hypoglycemia HULL (dyspnea on exertion) GERD (gastroesophageal reflux disease) Chronic sinusitis Cystitis Chronic kidney disease stage 3, follows with Dr Roberts Chronic diastolic (congestive) heart failure follows with [facility] cardiology Sleep apnea complex sleep apnea, BIPAP (non-compliant) COPD (chronic obstructive pulmonary disease) Asthma Difficulty swallowing "trouble swallowing pills" History of DVT (deep vein thrombosis) remote hx, unknown etiology, Junctional bradycardia Pulmonary hypertension mild per 07/[address] report Atherosclerosis of both lower extremities Lumbar transverse process fracture Pt reports lower back detioriating - can't lie flat/sleep on a chair Pulmonary nodule seen on imaging study Wrist injury Scar tissue surrounding remote wrist ORIF several years ago resulting in intermittent inflammation per pt Bilateral nephrolithiasis current on CT scan H/O concussion Remote hx "a long time ago" Incisional hernia Abdominal (from multiple surgeries/feeding tube) Chronic urinary tract infection recent hospitalization for this at [facility] DC'ed 02/14/2024> pt reports no symptoms Chronic venous insufficiency Port-A-Cath in place right side due to poor vascular access Urinary leakage PUD (peptic ulcer disease) Had feeding tube for 28 years (has been removed for 11 years) Lumbar stenosis Short bowel syndrome Surgical History History of cystoscopy multiple H/O shoulder surgery RT arthroscopy 05/28/2021: LMA#4 atraumatic x 1 + PNB. Anesthesia postop progress note: "Pt denies SOB at this time. Block is functioning well. Vital signs stable and appropriate. Oxygenating well considering block placement and her comorbidities. Plan to discharge home with IS." S/P right rotator cuff repair S/P ureteral stent placement Status post laser lithotripsy of ureteral calculus History of prior ablation treatment Right LE in January 2020 and left LE 04/18/20 History of partial gastrectomy History of sinus surgery History of tonsillectomy and adenoidectomy History of total abdominal hysterectomy and bilateral salpingo-oophorectomy History of cholecystectomy History of appendectomy History of open reduction and internal fixation (ORIF) procedure left wrist + manipulation (01/2018) and I&D (10/2019) History of joint replacement Rt thumb History of knee replacement procedure of right knee History of esophagogastroduodenoscopy (EGD) with dilatation History of colonoscopy History of gastrointestinal surgery multiple History of cardiac cath 08/2019 ([facility])- essentially normal coronary arteries angiographically, no stents Family History Mother Family history of diabetes mellitus Sister Family history of diabetes mellitus Family history of breast cancer Father Esophageal cancer Other Family history non-contributory No family history of adverse response to anesthesia Social History Smoking Status: Unknown if ever smoked Second Hand Exposure: No; Do You Dip or Chew Tobacco: No; Hx Alcohol Use: No Hx Substance Use: No Preferred Language: Faroese Communication Ability: Effective Visual Impairment: No Limitations Electronic Design Engineer Required: No Beliefs That Will Affect Care: None marital status: Single Current Living Situation: Alone Current Living Situation Comment: apartment at [facility] in [place]/ had aid How many Children do You have: 0 Feels Safe at Home: Yes Assistive Devices: Denture - Upper, Denture - Lower, Glasses and Walker Allergies Allergies Allergy/AdvReac Type Severity Reaction Status Date / Time bethanechol Allergy Intermediate RASH, Verified 05/25/24 13:17 "FEELS FUNNY" Cephalosporins Allergy Intermediate RASH, Verified 05/25/24 13:17 DIARRHEA levofloxacin Allergy Intermediate RASH,TURNED Verified 05/25/24 13:17 RED Sulfa (Sulfonamide Allergy Intermediate Generalized Verified 05/25/24 13:17 Antibiotics) Rash ertapenem Allergy Mild RASH Verified 05/25/24 13:17 atropine Allergy Unknown ON [facility] Verified 05/25/24 13:17 LIST clindamycin Allergy Unknown Unknown Verified 05/25/24 13:17 dipyridamole Allergy Unknown PERSANTINE--ON Verified 05/25/24 13:17 [facility] MED LIST droperidol Allergy Unknown Unknown Verified 05/25/24 13:17 meperidine [From Demerol] Allergy Unknown ? ALLERGY Verified 05/25/24 13:17 ON [facility] LIST promethazine Allergy Unknown UNKNOWN Verified 05/25/24 13:17 tobramycin Allergy Unknown UNKNOWN Verified 05/25/24 13:17 aspirin AdvReac Severe BLEEDING Verified 05/25/24 13:17 doxycycline AdvReac Severe severe Verified 05/25/24 13:17 Diarrhea, nausea metolazone AdvReac Severe ELECTROLYTE Verified 05/25/24 13:17 ISSUES--HYPOKALEMIA bupropion AdvReac Intermediate NERVOUS Verified 05/25/24 13:17 REACTION cephalexin AdvReac Intermediate GI SYMPTOMS Verified 05/25/24 13:17 morphine AdvReac Intermediate NERVOUS Verified 05/25/24 13:17 REACTION TO IT nitrofurantoin AdvReac Intermediate Vomiting Verified 05/25/24 13:17 [From Macrobid] prochlorperazine AdvReac Intermediate NERVOUS Verified 05/25/24 13:17 REACTION tedizolid AdvReac Intermediate GI SYMPTOMS Verified 05/25/24 13:17 venlafaxine [From Effexor] AdvReac Intermediate NERVOUS Verified 05/25/24 13:17 REACTION lamotrigine AdvReac Unknown tremors Verified 05/25/24 13:17 Home Meds Home Medications Medication Instructions Recorded Confirmed calcium carbonate (Calcium 600) 1,200 mg PO TID 04/21/24 05/25/24 cetirizine 10 mg tablet 10 mg PO QAM PRN Allergy Symptoms 04/21/24 05/25/24 cyanocobalamin (vitamin B-12) 1,000 mcg PO QAM 04/21/24 05/25/24 1,000 mcg tablet (Vitamin B-12) metoclopramide HCl 10 mg tablet 10 mg PO TID PRN prn 04/21/24 05/25/24 (Reglan) wzugeawdehnk-hbatmhtw-esmyqh tablet 1 tab PO QAM 04/21/24 05/25/24 pregabalin 25 mg capsule 25 mg PO QID 04/21/24 05/25/24 valacyclovir 500 mg tablet 500 mg PO QAM 04/21/24 05/25/24 Previous Rx's Medication Instructions Recorded denosumab 60 mg/mL subcutaneous 60 mg subcut Q180D #1 mL 10/18/23 syringe (Prolia) albuterol sulfate 90 mcg/actuation 2 inh inhalation Q6H PRN Shortness 12/19/23 breath activated powder inhaler Of Breath Or Wheezing #1 ea duloxetine 30 mg capsule,delayed 30 mg PO QAM #30 caps 12/19/23 release fluticasone furoate 200 1 inh inhalation QAM #60 ea 12/19/23 mcg-vilanterol 25 mcg/dose inhalation powder (Breo Ellipta) fluticasone propionate 50 2 spray NA DAILY #16 grams 12/19/23 mcg/actuation nasal spray,suspension ipratropium 0.5 mg-albuterol 3 mg 3 ml inhalation Q4H PRN Shortness 12/19/23 (2.5 mg base)/3 mL nebulization Of Breath Or Wheezing #90 mL soln lamotrigine 25 mg tablet (Lamictal) 25 mg PO QAM #30 tabs 12/19/23 lamotrigine 25 mg tablet (Lamictal) 50 mg (2 x 25 mg) PO HS #60 tabs 12/19/23 levothyroxine 88 mcg tablet 88 mcg PO QAM #30 tabs 12/19/23 rhfrko-thhdmqvk-spjujel 4 cap PO TID #120 caps 12/19/23 24,000-76,000-120,000 unit capsule,delayed rel (Creon) montelukast 10 mg tablet 10 mg PO HS #30 tabs 12/19/23 nitroglycerin 0.4 mg sublingual 0.4 mg sublingual DIRECTED PRN 12/19/23 tablet (Nitrostat) Chest Pain #30 tabs omeprazole magnesium 20 mg 20 mg PO BID #30 tabs 12/19/23 tablet,delayed release ropinirole 0.5 mg tablet 0.5 mg PO HS #30 tabs 12/19/23 rosuvastatin 10 mg tablet 10 mg PO QAM #30 tabs 12/19/23 acetaminophen 325 mg tablet 650 mg (2 x 325 mg) PO QID PRN 02/14/24 pain #60 tabs magnesium oxide 400 mg (241.3 mg 400 mg PO QAM #30 tabs 02/14/24 magnesium) tablet ondansetron 4 mg disintegrating 4 mg PO TID PRN nausea and 02/14/24 tablet vomiting #20 tabs colesevelam 625 mg tablet (WelChol) 625 mg PO BID 30 days #60 tabs 05/25/24 calcitriol 0.5 mcg capsule 0.5 mcg PO DAILY #30 caps 06/13/24 Results & Data (ED) Vital Signs Vital Signs - 24 hr 06/19/24 17:51 06/19/24 17:59 06/19/24 18:05 Temperature 36.5 C Temperature Source Oral Pulse Rate 94 H 94 H Pulse Rate [Apical] Respiratory Rate 30 H Blood Pressure 104/48 L Blood Pressure [Left Arm] Blood Pressure Mean 66 Blood Pressure Mean [Left Arm] Pulse Oximetry 96 Oxygen Delivery Method Nasal Cannula Nasal Cannula Oxygen Flow Rate 4 4 Sepsis Recent Fever Within 48 Hours No Sepsis New/Unexplained Change in Mental Status N/A Sepsis Action Taken by Nursing No Action Required 06/19/24 18:05 06/19/24 18:47 06/19/24 19:17 Temperature 36.5 C Temperature Source Oral Pulse Rate Pulse Rate [Apical] 94 H 96 H 95 H Respiratory Rate 30 H 34 H 39 H Blood Pressure Blood Pressure [Left Arm] 104/48 L 105/59 L 90/54 L Blood Pressure Mean Blood Pressure Mean [Left Arm] 66 74 66 Pulse Oximetry 96 100 100 Oxygen Delivery Method Nasal Cannula Nasal Cannula Nasal Cannula Oxygen Flow Rate 4 4 4 Sepsis Recent Fever Within 48 Hours Sepsis New/Unexplained Change in Mental Status Sepsis Action Taken by Nursing 06/19/24 19:56 06/19/24 20:10 06/19/24 20:11 Temperature Temperature Source Pulse Rate 96 H Pulse Rate [Apical] 99 H 96 H Respiratory Rate 18 34 H 34 H Blood Pressure Blood Pressure [Left Arm] 112/49 L 97/53 L Blood Pressure Mean Blood Pressure Mean [Left Arm] 70 67 Pulse Oximetry 94 93 93 Oxygen Delivery Method Nasal Cannula Nasal Cannula Nasal Cannula Oxygen Flow Rate 4 4 4 Sepsis Recent Fever Within 48 Hours Sepsis New/Unexplained Change in Mental Status Sepsis Action Taken by Nursing 06/19/24 20:32 Temperature Temperature Source Pulse Rate Pulse Rate [Apical] 97 H Respiratory Rate 36 H Blood Pressure Blood Pressure [Left Arm] 106/63 Blood Pressure Mean Blood Pressure Mean [Left Arm] 77 Pulse Oximetry 94 Oxygen Delivery Method Nasal Cannula Oxygen Flow Rate 4 Sepsis Recent Fever Within 48 Hours Sepsis New/Unexplained Change in Mental Status Sepsis Action Taken by Nursing Laboratory Data 06/19/24 18:57 06/19/24 18:57 Lab Results 06/19/24 06/19/24 06/19/24 Range/Units 17:49 18:57 19:50 WBC 5.59 (4.8-10.8) K/ul RBC 4.54 (4.20-5.40) M/uL Hgb 13.7 (12.0-16.0) g/dl Hct 42.4 (37.0-47.0) % MCV 93.4 (80.0-100.0) fL MCH 30.2 (25.0-34.0) pg MCHC 32.3 (32.0-36.0) g/dL RDW Std Deviation 49.4 H (36.4-46.3) fL RDW Coeff of David 14.3 (11.5-14.5) % Plt Count 142 (130-400) K/uL MPV 9.6 (9.4-12.4) fL Immature Gran % (Auto) 0.4 % Neut % (Auto) 81.0 % Lymph % (Auto) 9.1 % Woods % (Auto) 9.3 % Eos % (Auto) 0.0 % Baso % (Auto) 0.2 % Neut # (Auto) 4.53 (1.40-6.50) K/uL Lymph # (Auto) 0.51 L (1.20-3.40) K/uL Woods # (Auto) 0.52 (0.11-0.59) K/uL Eos # (Auto) 0.00 (0.00-0.50) K/uL Baso # (Auto) 0.01 (0.00-0.20) K/uL Immature Gran # (Auto) 0.02 (0.01-0.20) K/uL PT 11.9 (9.0-12.0) Seconds INR 1.1 (0.9-1.1) VBG pH 7.41 (7.36-7.41) VBG pCO2 41 (38-50) mmHg VBG pO2 40 mmHg VBG HCO3 26 mmol/L VBG O2 Saturation 70.3 % VBG Base Excess 1.2 mEq/L Sodium 142 (136-145) mmol/L Potassium 2.9 L (3.5-5.1) mmol/L Chloride 106 (98-107) mmol/L Carbon Dioxide 27 (21-32) mmol/L Anion Gap 9 (3-11) BUN 32 H (6-23) mg/dl Creatinine 1.02 (0.6-1.2) mg/dl Est Cr Clr Drug Dosing 45.9 ml/min Est GFR ( Amer) 64.1 ml/min Est GFR (Non-Af Amer) 55.3 ml/min BUN/Creatinine Ratio 31.4 H (10-20) Glucose 111 H (70-99(Fasting)) mg/dl POC Glucose 86 (70-99) mg/dl Lactate 1.0 (0.4-2.0) mmol/L Calcium 9.0 (8.6-10.3) mg/dl Magnesium 2.3 (1.7-2.4) mg/dl Total Bilirubin 0.4 (0.2-1.0) mg/dl Direct Bilirubin 0.1 (0-0.2) mg/dl AST 68 H (13-39) U/L ALT 25 (7-52) U/L Alkaline Phosphatase 58 (34-104) U/L Troponin I High Sens 134.7 H* (0-14) pg/ml B-Natriuretic Peptide 315 H (0-100) pg/ml Total Protein 6.1 (6.0-8.3) gm/dl Albumin 3.8 (3.4-5.0) gm/dl Procalcitonin 20.20 H (0-0.5) ng/ml Urine Color Urine Appearance (Clear) Urine pH (4.5-7.5) Ur Specific [place] (1.000-1.030) Urine Protein (Negative) Urine Glucose (UA) (Negative) Urine Ketones (Negative) Urine Blood (Negative) Urine Nitrite (Negative) Urine Bilirubin (Negative) Urine Urobilinogen (Negative) Ur Leukocyte Esterase (Negative) Urine WBC (Auto) (0-5) /hpf Urine RBC (Auto) (0-2) /hpf U Hyaline Cast (Auto) (0-2) /lpf U Epithel Cells (Auto) (0-2) /hpf Urine Bacteria (Auto) (None Seen) 06/19/24 Range/Units 20:04 WBC (4.8-10.8) K/ul RBC (4.20-5.40) M/uL Hgb (12.0-16.0) g/dl Hct (37.0-47.0) % MCV (80.0-100.0) fL MCH (25.0-34.0) pg MCHC (32.0-36.0) g/dL RDW Std Deviation (36.4-46.3) fL RDW Coeff of David (11.5-14.5) % Plt Count (130-400) K/uL MPV (9.4-12.4) fL Immature Gran % (Auto) % Neut % (Auto) % Lymph % (Auto) % Woods % (Auto) % Eos % (Auto) % Baso % (Auto) % Neut # (Auto) (1.40-6.50) K/uL Lymph # (Auto) (1.20-3.40) K/uL Woods # (Auto) (0.11-0.59) K/uL Eos # (Auto) (0.00-0.50) K/uL Baso # (Auto) (0.00-0.20) K/uL Immature Gran # (Auto) (0.01-0.20) K/uL PT (9.0-12.0) Seconds INR (0.9-1.1) VBG pH (7.36-7.41) VBG pCO2 (38-50) mmHg VBG pO2 mmHg VBG HCO3 mmol/L VBG O2 Saturation % VBG Base Excess mEq/L Sodium (136-145) mmol/L Potassium (3.5-5.1) mmol/L Chloride (98-107) mmol/L Carbon Dioxide (21-32) mmol/L Anion Gap (3-11) BUN (6-23) mg/dl Creatinine (0.6-1.2) mg/dl Est Cr Clr Drug Dosing ml/min Est GFR ( Amer) ml/min Est GFR (Non-Af Amer) ml/min BUN/Creatinine Ratio (10-20) Glucose (70-99(Fasting)) mg/dl POC Glucose (70-99) mg/dl Lactate (0.4-2.0) mmol/L Calcium (8.6-10.3) mg/dl Magnesium (1.7-2.4) mg/dl Total Bilirubin (0.2-1.0) mg/dl Direct Bilirubin (0-0.2) mg/dl AST (13-39) U/L ALT (7-52) U/L Alkaline Phosphatase (34-104) U/L Troponin I High Sens (0-14) pg/ml B-Natriuretic Peptide (0-100) pg/ml Total Protein (6.0-8.3) gm/dl Albumin (3.4-5.0) gm/dl Procalcitonin (0-0.5) ng/ml Urine Color Yellow Urine Appearance Clear (Clear) Urine pH 7.0 (4.5-7.5) Ur Specific [place] 1.014 (1.000-1.030) Urine Protein 2+ H (Negative) Urine Glucose (UA) Negative (Negative) Urine Ketones 1+ H (Negative) Urine Blood 3+ H (Negative) Urine Nitrite Negative (Negative) Urine Bilirubin Negative (Negative) Urine Urobilinogen Negative (Negative) Ur Leukocyte Esterase 1+ H (Negative) Urine WBC (Auto) 0-5 (0-5) /hpf Urine RBC (Auto) 11-20 H (0-2) /hpf U Hyaline Cast (Auto) 0-2 (0-2) /lpf U Epithel Cells (Auto) 0-2 (0-2) /hpf Urine Bacteria (Auto) 1+ H (None Seen) Administered Medications Discontinued Medications Sodium Chloride (Nss) 1,000 mls @ 999 mls/hr IV .Q1H1M CATE Stop: 06/19/24 19:15 Last Infusion: 06/19/24 20:15 Dose: Infused Documented By: Admin: 06/19/24 19:09 Dose: 999 mls/hr Documented By: BRIA Sodium Chloride (Nss) 1,000 mls @ 999 mls/hr IV .Q1H1M ONE Stop: 06/19/24 20:42 Last Admin: 06/19/24 20:14 Dose: 999 mls/hr Documented By: BRIA Imaging Data Radiologist's Impression: Chest X-Ray 06/19/24 18:08 XR chest 1V portable CLINICAL HISTORY: Sepsis TECHNIQUE: Single frontal radiograph of the chest was obtained. Comparison: Comparison is made to chest radiograph 12/15/2023 FINDINGS: A port catheter is seen. The cardiomediastinal silhouette is normal. Left lower lung airspace opacity is seen. Interstitial thickening is noted. No evidence of pleural effusion or pneumothorax. IMPRESSION: Left lower lung airspace opacity. This may represent atelectasis, pneumonia, and/or aspiration. ACT 112: Negative or not required by law. Electronically signed by: Evan Ventura M.D. 06/19/2024 7:[address] 06/19/24 18:11 Exam(s): CT HEAD Without Contrast EXAM: CT Head Without Intravenous Contrast CLINICAL HISTORY: LESLIE. TECHNIQUE: Axial computed tomography images of the head/brain without intravenous contrast. CTDI is 36.31 mGy and DLP is 546.36 mGy-cm. Automated exposure control was utilized for the study. A dose lowering technique was utilized adhering to the principles of ALARA. COMPARISON: CT head without contrast dated 02/04/2024 FINDINGS: Brain: No intracranial hemorrhage. No significant mass effect. No cortical infarct. Stable parenchymal involutional changes with prominence of the cerebral sulci and sylvian fissures. No significant white matter disease. Ventricles: No midline shift or ventriculomegaly. Bones/joints: Unremarkable. No acute fracture. Soft tissues: Unremarkable. Sinuses: Mucosal thickening and opacification of the right maxillary sinus and a few anterior right ethmoid air cells. Stable postoperative changes with turbulent resection. Mastoid air cells: Unremarkable as visualized. No mastoid effusion. IMPRESSION: No acute intracranial process or significant alteration from the prior examination with chronic underlying presumed age-related findings. Electronically signed by: Alfredo Aguilar MD 06/19/24 20:33 PM Abdomen/Pelvis CT 06/19/24 18:12 Exam(s): CT ABDOMEN + PELVIS Without Contrast EXAM: CT Abdomen and Pelvis Without Intravenous Contrast CLINICAL HISTORY: N/V. TECHNIQUE: Axial computed tomography images of the abdomen and pelvis without intravenous contrast. CTDI is 63.53 mGy and DLP is 1249 mGy-cm. Automated exposure control was utilized for the study. A dose lowering technique was utilized adhering to the principles of ALARA. COMPARISON: CT abdomen and pelvis with contrast dated 02/10/2024 FINDINGS: Limitations: There is respiratory artifact, which degrades image quality on multiple image slices. Lung bases: Patchy airspace consolidation involving the inferior lingular segments and left lower, new from the previous examination. Additional subsegmental changes at the right lung base are chronic atelectasis or fibrosis. Heart: Cardiomegaly. Implanted cardiac monitoring device. ABDOMEN: Liver: The liver is unremarkable, accounting for lack of IV contrast and respiratory artifact. Gallbladder and bile ducts: The gallbladder is not clearly delineated. Similar ectasia of the common bile duct. No significant intrahepatic biliary dilatation. Pancreas: Unremarkable. No ductal dilation. Spleen: Unremarkable. No splenomegaly. Adrenals: Unremarkable. No mass. Kidneys and ureters: The right kidney remains atrophic and somewhat dysmorphic in appearance. Stable nonobstructive nephrolithiasis noted internally. The normal caliber left kidney demonstrates nonobstructive nephrolithiasis, subcentimeter in size involving inferior pole calyces. No hydronephrosis. No ureteral stones. Stomach and bowel: Postsurgical changes involving the stomach consistent with prior gastric bypass. The duodenum appears to be ligated proximally. There is prominent fluid dilation of the duodenum and a proximal jejunal loop with a relative transition to decompressed small bowel loops anteriorly. There are also nonspecific fluid and gas distended, but not dilated small bowel loops in the central pelvis. Moderate stool burden. PELVIS: Appendix: No findings to suggest acute appendicitis. Bladder: Unremarkable. No stones. Reproductive: Status post hysterectomy. ABDOMEN and PELVIS: Intraperitoneal space: Unremarkable. No free air. No significant fluid collection. Bones/joints: No acute osseous abnormality. No alteration from the prior examination. Soft tissues: Chronic dysmorphic appearance of the anterior abdominal wall with laxity and marked lobulation. The number of the bowel loops lie immediately deep to the skin surface, as noted on the previous examination. Vasculature: Unremarkable. No abdominal aortic aneurysm. Lymph nodes: Unremarkable. No enlarged lymph nodes. IMPRESSION: 1. Patchy airspace consolidation involving the inferior lingular segments and left lower, new from the previous examination. The primary consideration is left basilar pneumonia. 2. Postsurgical changes involving the stomach consistent with prior gastric bypass. The duodenum appears to be ligated proximally. There is prominent fluid dilation of the duodenum and a proximal jejunal loop with a relative transition to decompressed small bowel loops anteriorly. There are also nonspecific fluid and gas distended, but not dilated small bowel loops in the central pelvis. Findings suggest jejunitis/enteritis. A proximal small bowel obstruction is difficult to exclude. Recommend serial radiographic evaluation or dedicated small bowel follow-through, as clinically indicated. Electronically signed by: Alfredo Aguilar MD 06/19/24 20:44 PM Discharge Plan Visit Data Chief Complaint: Confusion Stated Complaint: AMS, HYPOXIA ED Provider: Tano Elizabeth Discharge Problem: Pneumonia Forms Stand Alone Forms: [facility] Prescriptions Prescriptions: No Action calcitriol 0.5 mcg capsule 0.5 mcg PO DAILY Qty: 30 2RF Prolia 60 mg/mL syringe 60 mg subcut Q180D Qty: 1 1RF colesevelam [WelChol] 625 mg tablet 625 mg PO BID 30 Days Qty: 60 2RF duloxetine 30 mg Capsule,Delayed Release(Dr/Ec) 30 mg PO QAM Qty: 30 0RF lamotrigine [Lamictal] 25 mg Tablet 25 mg PO QAM Qty: 30 0RF lamotrigine [Lamictal] 25 mg Tablet 50 mg PO HS Qty: 60 0RF fluticasone propionate 50 mcg/actuation [place],Suspension 2 spray NA DAILY Qty: 16 0RF ipratropium-albuterol 0.5 mg-3 mg(2.5 mg base)/3 mL Solution For Nebulization 3 ml INHALATION Q4H PRN (Reason: Shortness Of Breath Or Wheezing) Qty: 90 0RF levothyroxine 88 mcg tablet 88 mcg PO QAM Qty: 30 3RF ropinirole 0.5 mg tablet 0.5 mg PO HS Qty: 30 0RF Rx Instructions: bedtime with food nitroglycerin [Nitrostat] 0.4 mg Tablet, Sublingual 0.4 mg sublingual DIRECTED PRN (Reason: Chest Pain) Qty: 30 0RF Rx Instructions: 1 under tongue as needed for chest pain may repeat up to 3 times. montelukast 10 mg tablet 10 mg PO HS Qty: 30 0RF rosuvastatin 10 mg tablet 10 mg PO QAM Qty: 30 0RF omeprazole magnesium 20 mg tablet,delayed release (DR/EC) 20 mg PO BID Qty: 30 0RF Rx Instructions: morning and bedtime Creon 24,000-76,000 -120,000 unit Capsule,Delayed Release(Dr/Ec) 4 cap PO TID Qty: 120 0RF fluticasone furoate-vilanterol [Breo Ellipta] 200-25 mcg/dose Blister With Device 1 inh INHALATION QAM Qty: 60 0RF albuterol sulfate 90 mcg/actuation aerosol powdr breath activated 2 inh INH Q6H PRN (Reason: Shortness Of Breath Or Wheezing) Qty: 1 3RF acetaminophen 325 mg Tablet 650 mg PO QID PRN (Reason: pain) Qty: 60 0RF magnesium oxide 400 mg (241.3 mg magnesium) Tablet 400 mg PO QAM Qty: 30 0RF ondansetron 4 mg tablet,disintegrating 4 mg PO TID PRN (Reason: nausea and vomiting) Qty: 20 0RF cetirizine 10 mg tablet 10 mg PO QAM PRN (Reason: Allergy Symptoms) cyanocobalamin (vitamin B-12) [Vitamin B-12] 1,000 mcg tablet 1,000 mcg PO QAM valacyclovir 500 mg tablet 500 mg PO QAM calcium carbonate [Calcium 600] 600 mg calcium (1,500 mg) tablet 1,200 mg PO TID [id number] Tablet 1 tab PO QAM pregabalin 25 mg capsule 25 mg PO QID metoclopramide HCl [Reglan] 10 mg Tablet 10 mg PO TID PRN (Reason: prn) Referrals Referrals: PCP,NO [Primary Care Provider] - Discharge Problem: Pneumonia Qualifiers: Pneumonia type: due to unspecified organism Laterality: left Lung location: l ower lobe of lung Qualified Code(s): J18.9 - Pneumonia, unspecified organism
[2024-06-19] MEDS: SODIUM CHLORIDE 0.9% 1,000 ML IV SCH (19:09)
[2024-06-19 19:16] LABS: Basophils # (auto) 0.01 K/uL (0.00-0.20); Basophils % (auto) 0.2 %; Hematocrit (blood only) 42.4 % (37.0-47.0); Hemoglobin 13.7 g/dl (12.0-16.0); Immature Granulocytes # (auto) 0.02 K/uL (0.01-0.20); Immature Granulocytes % (auto) 0.4 %; Lymphocytes # (auto) 0.51 K/uL (1.20-3.40); Lymphocytes % (auto) 9.1 %; Mean Corpuscular Hemoglobin 30.2 pg (25.0-34.0); Mean Corpuscular Hgb Conc 32.3 g/dL (32.0-36.0); Mean Corpuscular Volume 93.4 fL (80.0-100.0); Mean Platelet Volume 9.6 fL (9.4-12.4); Monocytes # (auto) 0.52 K/uL (0.11-0.59); Monocytes % (auto) 9.3 %; Neutrophils # (auto) 4.53 K/uL (1.40-6.50); Platelet Count 142 K/uL (130-400); RDW Coefficient of Variation 14.3 % (11.5-14.5); RDW Standard Deviation 49.4 fL (36.4-46.3); Red Blood Count 4.54 M/uL (4.20-5.40); White Blood Count 5.59 K/ul (4.8-10.8)
[2024-06-19 19:30] LABS: Albumin Level 3.8 gm/dl (3.4-5.0); BUN Creatinine Ratio 31.4 (10-20); Bilirubin Direct 0.1 mg/dl (0-0.2); Bilirubin,Total 0.4 mg/dl (0.2-1.0); Creatinine Clr Calc Pharmacy 45.9 ml/min; Est GFR (African American) 64.1 ml/min; Est GFR (Non-African American) 55.3 ml/min; Magnesium 2.3 mg/dl (1.7-2.4); Potassium 2.9 mmol/L (3.5-5.1); Total Protein 6.1 gm/dl (6.0-8.3)
--- NOTE | 2024-06-19 19:37 | XRay Report ---
XR chest 1V portable CLINICAL HISTORY: Sepsis TECHNIQUE: Single frontal radiograph of the chest was obtained. Comparison: Comparison is made to chest radiograph 12/15/2023 FINDINGS: A port catheter is seen. The cardiomediastinal silhouette is normal. Left lower lung airspace opacity is seen. Interstitial thickening is noted. No evidence of pleural effusion or pneumothorax. IMPRESSION: Left lower lung airspace opacity. This may represent atelectasis, pneumonia, and/or aspiration. ACT 112: Negative or not required by law. Electronically signed by: Evan Ventura M.D. 06/19/2024 7:36 PM
[2024-06-19 19:40] LABS: Troponin I High Sensitivity 134.7 pg/ml (0-14)
[2024-06-19 19:49] LABS: INR 1.1 (0.9-1.1); Prothrombin Time 11.9 Seconds (9.0-12.0)
[2024-06-19 19:58] LABS: Base Excess VBG 1.2 mEq/L; HCO3 VBG 26 mmol/L; Oxygen Saturation VBG 70.3 %; PCO2 VBG 41 mmHg (38-50); PO2 VBG 40 mmHg; pH VBG 7.41 (7.36-7.41)
[2024-06-19] MEDS: SODIUM CHLORIDE 0.9% 1,000 ML IV ONE (20:14)
[2024-06-19 20:34] LABS: Appearance Urine Clear (Clear); Bacteria Urine Automated 1+ (None Seen); Bilirubin Urine Negative (Negative); Blood Urine 3+ (Negative); Cast Urine Automated 0-2 /lpf (0-2); Color Urine Yellow; Epithelial Cell Urine Auto 0-2 /hpf (0-2); Glucose Urine UA Negative (Negative); Ketones Urine 1+ (Negative); Leukocyte Esterase Urine 1+ (Negative); Nitrite Urine Negative (Negative); Protein Urine 2+ (Negative); Specific Gravity Urine 1.014 (1.000-1.030); Urobilinogen Urine Negative (Negative); WBC Urine Automated 0-5 /hpf (0-5)
--- NOTE | 2024-06-19 20:34 | CT Scan Report ---
Exam(s): CT HEAD Without Contrast EXAM: CT Head Without Intravenous Contrast CLINICAL HISTORY: LESLIE. TECHNIQUE: Axial computed tomography images of the head/brain without intravenous contrast. CTDI is 36.31 mGy and DLP is 546.36 mGy-cm. Automated exposure control was utilized for the study. A dose lowering technique was utilized adhering to the principles of ALARA. COMPARISON: CT head without contrast dated 02/04/2024 FINDINGS: Brain: No intracranial hemorrhage. No significant mass effect. No cortical infarct. Stable parenchymal involutional changes with prominence of the cerebral sulci and sylvian fissures. No significant white matter disease. Ventricles: No midline shift or ventriculomegaly. Bones/joints: Unremarkable. No acute fracture. Soft tissues: Unremarkable. Sinuses: Mucosal thickening and opacification of the right maxillary sinus and a few anterior right ethmoid air cells. Stable postoperative changes with turbulent resection. Mastoid air cells: Unremarkable as visualized. No mastoid effusion. IMPRESSION: No acute intracranial process or significant alteration from the prior examination with chronic underlying presumed age-related findings. Electronically signed by: Alfredo Aguilar MD 06/19/24 20:33 PM
--- NOTE | 2024-06-19 20:45 | CT Scan Report ---
Exam(s): CT ABDOMEN + PELVIS Without Contrast EXAM: CT Abdomen and Pelvis Without Intravenous Contrast CLINICAL HISTORY: N/V. TECHNIQUE: Axial computed tomography images of the abdomen and pelvis without intravenous contrast. CTDI is 63.53 mGy and DLP is 1249 mGy-cm. Automated exposure control was utilized for the study. A dose lowering technique was utilized adhering to the principles of ALARA. COMPARISON: CT abdomen and pelvis with contrast dated 02/10/2024 FINDINGS: Limitations: There is respiratory artifact, which degrades image quality on multiple image slices. Lung bases: Patchy airspace consolidation involving the inferior lingular segments and left lower, new from the previous examination. Additional subsegmental changes at the right lung base are chronic atelectasis or fibrosis. Heart: Cardiomegaly. Implanted cardiac monitoring device. ABDOMEN: Liver: The liver is unremarkable, accounting for lack of IV contrast and respiratory artifact. Gallbladder and bile ducts: The gallbladder is not clearly delineated. Similar ectasia of the common bile duct. No significant intrahepatic biliary dilatation. Pancreas: Unremarkable. No ductal dilation. Spleen: Unremarkable. No splenomegaly. Adrenals: Unremarkable. No mass. Kidneys and ureters: The right kidney remains atrophic and somewhat dysmorphic in appearance. Stable nonobstructive nephrolithiasis noted internally. The normal caliber left kidney demonstrates nonobstructive nephrolithiasis, subcentimeter in size involving inferior pole calyces. No hydronephrosis. No ureteral stones. Stomach and bowel: Postsurgical changes involving the stomach consistent with prior gastric bypass. The duodenum appears to be ligated proximally. There is prominent fluid dilation of the duodenum and a proximal jejunal loop with a relative transition to decompressed small bowel loops anteriorly. There are also nonspecific fluid and gas distended, but not dilated small bowel loops in the central pelvis. Moderate stool burden. PELVIS: Appendix: No findings to suggest acute appendicitis. Bladder: Unremarkable. No stones. Reproductive: Status post hysterectomy. ABDOMEN and PELVIS: Intraperitoneal space: Unremarkable. No free air. No significant fluid collection. Bones/joints: No acute osseous abnormality. No alteration from the prior examination. Soft tissues: Chronic dysmorphic appearance of the anterior abdominal wall with laxity and marked lobulation. The number of the bowel loops lie immediately deep to the skin surface, as noted on the previous examination. Vasculature: Unremarkable. No abdominal aortic aneurysm. Lymph nodes: Unremarkable. No enlarged lymph nodes. IMPRESSION: 1. Patchy airspace consolidation involving the inferior lingular segments and left lower, new from the previous examination. The primary consideration is left basilar pneumonia. 2. Postsurgical changes involving the stomach consistent with prior gastric bypass. The duodenum appears to be ligated proximally. There is prominent fluid dilation of the duodenum and a proximal jejunal loop with a relative transition to decompressed small bowel loops anteriorly. There are also nonspecific fluid and gas distended, but not dilated small bowel loops in the central pelvis. Findings suggest jejunitis/enteritis. A proximal small bowel obstruction is difficult to exclude. Recommend serial radiographic evaluation or dedicated small bowel follow-through, as clinically indicated. Electronically signed by: Alfredo Aguilar MD 06/19/24 20:44 PM
[2024-06-19] MEDS: PIPERACILLIN/TAZOBACTAM 4.5 GM/100 ML BAG IV ONE (21:21)
[2024-06-19 21:22] LABS: Adenovirus PCR Not Detected (NotDetected); Bordetella parapertussis PCR Not Detected (NotDetected); Bordetella pertussis PCR Not Detected (NotDetected); Chlamydia pneumoniae PCR Not Detected (NotDetected); Coronavirus 229E PCR Not Detected (NotDetected); Coronavirus CoV-2 (COVID19)PCR DETECTED (NotDetected); Coronavirus HKU1 PCR Not Detected (NotDetected); Coronavirus NL63 PCR Not Detected (NotDetected); Coronavirus OC43PCR Not Detected (NotDetected); Human Metapneumovirus PCR Not Detected (NotDetected); Influenza A PCR Not Detected (NotDetected); Influenza B PCR Not Detected (NotDetected); Mycoplasma pneumoniae PCR Not Detected (NotDetected); Parainfluenza Virus 1 PCR Not Detected (NotDetected); Parainfluenza Virus 2 PCR Not Detected (NotDetected); Parainfluenza Virus 3 PCR Not Detected (NotDetected); Parainfluenza Virus 4 PCR Not Detected (NotDetected); Respiratory Syncytial VirusPCR Not Detected (NotDetected); Rhinovirus/Enterovirus PCR Not Detected (NotDetected)
[2024-06-19] MEDS: SODIUM CHLORIDE 0.9% 250 ML IV ONE (21:22)
[2024-06-19] MEDS: POTASSIUM CHLORIDE / WTR 10 MEQ/100 ML PLCT IV SCH (21:46)
[2024-06-19] MEDS: AZITHROMYCIN 500 MG in DEXTROSE 5% 250 ML IV STA (22:22)
[2024-06-19] MEDS ORDERED: VANCOMYCIN CONSULT ACTIVE PRN (22:24)
--- NOTE | 2024-06-19 22:55 | History & Physical Report ---
Date of Service June 19, 2024 Assessment & Plan (1) Lethargy: Plan: 73-year-old female with past medical history significant for chronic pancreatitis, hyperlipidemia, hypothyroidism, secondary hyperparathyroidism of renal origin, history of hypoglycemia, COPD, complex sleep apnea syndrome, chronic diastolic CHF, CKD stage III, sick sinus syndrome status post pacemaker, mitral valve disorder, chronic venous insufficiency, history of renal disease, pulmonary hypertension, history of occlusion of left saphenous vein, GERD, status post partial gastrectomy ,postsurgical malabsorption, obstructive uropathy, osteoarthritis, restless leg syndrome, osteoporosis, dysgeusia, history of C. difficile, depression, KRYSTAL, history of kidney stones, gait disturbance ambulates with walker, lives alone was brought in because of confusion and lethargy and found to have COVID, UTI and pneumonia. Patient is currently lethargic could not get any history from the patient. As per ER patient is having some issues this morning and when neighbors checked on her she refused EMS transport at that time. Later in the afternoon when someone came to check on her she was very lethargic appearing and seems to have increased work of breathing and EMS was contacted. For EMS patient was hypoxic and was placed on oxygen nasal cannula and brought to the ER. In the ER seems she was able to answer questions appropriately without any focal deficit. She told the ER she has headache. And told that she was not vomiting. And was up all night with some generalized illness.Called sister and able to reach her. As per sister patient was in the sisters house yesterday evening. And she seemed okay. But she was coughing a lot. And told sister that she has decreased appetite. And was nauseous. She did not seem to have any fever. Not sure about diarrhea. Currently in ER blood pressures are soft. Has hypokalemia. VBG okay. Initial troponin 134 and repeat 211. BNP is 315. Procalcitonin 20Lactic acid 1.0 Urinalysis positive. Respiratory bio fire positive for COVID. Lethargic Severe sepsis/Septic omar COVID Pneumonia UTI Blood pressure soft Lactic acid 1 Procalcitonin [address] head okay CT abdomen pelvis showing degenerative/enteritis. Possible SBO Chest x-ray left lower lung opacity. Atelectasis/aspiration/pneumonia Requiring oxygen as was having tachypnea placed on bipap and BP dropping even after fluid resuscitation and still lethargic called ICU and was transferred to ICU IN ICU requiring pressors Appreciate critical care help Will monitor closely hemodynamics COVID COVID precautions As patient requiring oxygen we will place her on remdesivir and Decadron And closely follow remdesivir labs Pneumonia Got Zosyn and azithromycin in ER Will continue with meropenem and azithromycin and Vanco mrsa creen positive Vanco with 48 hours stop orderd - but to continue for now Continue oxygenation CTA chest No PE but shows multi lobe consolidation.Possible left lower lobe necrotizing process. Possible aspiration. Nebs as needed Follow the cultures UTI History of ESBL and Pseudomonas Placed on meropenem Is allergic to Invanz with rash Will closely monitor Hypokalemia Replacing Follow labs Elevated troponin Initial troponin 134 and repeat 211 Mostly demand ischemia Will follow serial cardiac enzymes and echo Possible SBO On CT scan jejunitis/enteritis Possible gastroenteritis Currently n.p.o. and IV fluids Surgery consult Follow repeat imaging studies esophagitis on ct scan iv ppi. Chronic diastolic CHF Getting fluids Monitor for volume overload History of COPD/asthma/ILD/pulmonary hypertension Continue home inhalers Nebs as needed Obstructive sleep apnea Noncompliant with BiPAP Sister says she recently had another sleep study and per sister not using oxygen while sleeping. VBG okay in ER Placed on bipap currently Hypothyroidism On Synthyroid follow tsh Sick sinus syndrome Status post pacemaker History of mitral valve disorder Chronic venous insufficiency Follow echo GERD Famotidine and PPI History of C. difficile Recently in March had course of p.o. vancomycin Monitor for any diarrhea History of gastric bypass Continue home medications History of chronic pancreatitis Pancreatic insufficiency Malabsorption Continue home meds when able to take History of mood/anxiety disorder Continue home meds when able to take Chronic pain Neuropathy Pregabalin Pain oxycodone as needed Will start once patient is more stable History of chronic headaches Possible tension headaches per neurology On Lamictal and Cymbalta Seems recently started on Ubrelvy History of MRSA Positive MRSA screen CKD stage III Creatinine 1 Will follow labs History of hypotension Requiring midodrine during admission in December 2023 History of chronic nephrolithiasis Secondary hyperparathyroidism On Calcitrol and calcium supplementation Endocrinology follow-up Ambulate dysfunction Ambulates with a walker DVT prophylaxis Lovenox Disposition Close monitor in ICU Full code. History of Present Illness Chief Complaint: Lethargic Primary Care Provider: NO PCP 73-year-old female with past medical history significant for chronic pancreatitis, hyperlipidemia, hypothyroidism, secondary hyperparathyroidism of renal origin, history of hypoglycemia, COPD, complex sleep apnea syndrome, chronic diastolic CHF, CKD stage III, sick sinus syndrome status post pacemaker, mitral valve disorder, chronic venous insufficiency, history of renal disease, pulmonary hypertension, history of occlusion of left saphenous vein, GERD, status post partial gastrectomy ,postsurgical malabsorption, obstructive uropathy, osteoarthritis, restless leg syndrome, osteoporosis, dysgeusia, history of C. difficile, depression, KRYSTAL, history of kidney stones, gait disturbance ambulates with walker, lives alone was brought in because of confusion and lethargy and found to have COVID, UTI and pneumonia. Patient is currently lethargic could not get any history from the patient. As per ER patient is having some issues this morning and when neighbors checked on her she refused EMS transport at that time. Later in the afternoon when someone came to check on her she was very lethargic appearing and seems to have increased work of breathing and EMS was contacted. For EMS patient was hypoxic and was placed on oxygen nasal cannula and brought to the ER. In the ER seems she was able to answer questions appropriately without any focal deficit. She told the ER she has headache. And told that she was not vomiting. And was up all night with some generalized illness.Called sister and able to reach her. As per sister patient was in the sisters house yesterday evening. And she seemed okay. But she was coughing a lot. And told sister that she has decreased appetite. And was nauseous. She did not seem to have any fever. Not sure about diarrhea. Currently in ER blood pressures are soft. Has hypokalemia. VBG okay. Initial troponin 134 and repeat 211. BNP is 315. Procalcitonin 20Lactic acid 1.0 Urinalysis positive. Respiratory bio fire positive for COVID. Past medical history. As as mentioned above. Past surgical history. Abdominal surgery. Cystoscopy with insertion of stent in right side. Bilateral distal lumbosacral node. EGD. Partial colectomy with anastomosis. Cholecystectomy. Partial removal of stomach. Total hysterectomy. Pacemaker placement. Social history. No smoking. No alcohol use. No drug use. Family history. Sister has asthma. Sister has breast cancer. Hypertension. Father had cancer. Mother had diabetes. Glaucoma. Heart disorder. Hypertension. Allergies Allergy/AdvReac Type Severity Reaction Status Date / Time bethanechol Allergy Intermediate RASH, Verified 05/25/24 13:17 "FEELS FUNNY" Cephalosporins Allergy Intermediate RASH, Verified 05/25/24 13:17 DIARRHEA levofloxacin Allergy Intermediate RASH,TURNED Verified 05/25/24 13:17 RED Sulfa (Sulfonamide Allergy Intermediate Generalized Verified 05/25/24 13:17 Antibiotics) Rash ertapenem Allergy Mild RASH Verified 05/25/24 13:17 atropine Allergy Unknown ON [facility]G MED Verified 05/25/24 13:17 LIST clindamycin Allergy Unknown Unknown Verified 05/25/24 13:17 dipyridamole Allergy Unknown PERSANTINE--ON Verified 05/25/24 13:17 GMG MED LIST droperidol Allergy Unknown Unknown Verified 05/25/24 13:17 meperidine [From Demerol] Allergy Unknown ? ALLERGY Verified 05/25/24 13:17 ON [facility]G MED LIST promethazine Allergy Unknown UNKNOWN Verified 05/25/24 13:17 tobramycin Allergy Unknown UNKNOWN Verified 05/25/24 13:17 aspirin AdvReac Severe BLEEDING Verified 05/25/24 13:17 doxycycline AdvReac Severe severe Verified 05/25/24 13:17 Diarrhea, nausea metolazone AdvReac Severe ELECTROLYTE Verified 05/25/24 13:17 ISSUES--HYPOKALEMIA bupropion AdvReac Intermediate NERVOUS Verified 05/25/24 13:17 REACTION cephalexin AdvReac Intermediate GI SYMPTOMS Verified 05/25/24 13:17 morphine AdvReac Intermediate NERVOUS Verified 05/25/24 13:17 REACTION TO IT nitrofurantoin AdvReac Intermediate Vomiting Verified 05/25/24 13:17 [From Macrobid] prochlorperazine AdvReac Intermediate NERVOUS Verified 05/25/24 13:17 REACTION tedizolid AdvReac Intermediate GI SYMPTOMS Verified 05/25/24 13:17 venlafaxine [From Effexor] AdvReac Intermediate NERVOUS Verified 05/25/24 13:17 REACTION lamotrigine AdvReac Unknown tremors Verified 05/25/24 13:17 Home Medications Medication Instructions Recorded Confirmed Type albuterol sulfate 90 mcg/actuation 2 puff inhalation Q6H PRN 06/19/24 06/19/24 History aerosol inhaler Shortness Of Breath Or Wheezing calcitriol 0.5 mcg capsule 0.5 mcg PO DAILY 06/19/24 06/19/24 History calcium carbonate 600 mg-vitamin 2 tab PO TID 06/19/24 06/19/24 History D3 10 mcg (400 unit) tablet cetirizine 10 mg tablet 10 mg PO DAILY PRN Allergic 06/19/24 06/19/24 History Symptoms denosumab 60 mg/mL subcutaneous 60 mg subcut UD 06/19/24 06/19/24 History syringe (Prolia) duloxetine 30 mg capsule,delayed 30 mg PO DAILY 06/19/24 06/19/24 History release famotidine 20 mg tablet 20 mg PO HS 06/19/24 06/19/24 History fluticasone furoate 200 1 inh inhalation DAILY 06/19/24 06/19/24 History mcg-vilanterol 25 mcg/dose inhalation powder (Breo Ellipta) ipratropium 0.5 mg-albuterol 3 mg 3 ml inhalation Q4H PRN Shortness 06/19/24 06/19/24 History (2.5 mg base)/3 mL nebulization Of Breath Or Wheezing soln lamotrigine 25 mg tablet 25 mg PO UD 06/19/24 06/19/24 History levothyroxine 88 mcg tablet 88 mcg PO DAILY 06/19/24 06/19/24 History zgkltn-oabdkhnp-dsvketk 4 cap PO TID 06/19/24 06/19/24 History 24,000-76,000-120,000 unit capsule,delayed rel (Creon) metoclopramide HCl 5 mg tablet 5 mg PO TID PRN Nausea And Vomiting 06/19/24 06/19/24 History montelukast 10 mg tablet 10 mg PO HS 06/19/24 06/19/24 History nitroglycerin 0.4 mg sublingual 0.4 mg sublingual UD PRN Chest Pain 06/19/24 06/19/24 History tablet omeprazole 20 mg capsule,delayed 20 mg PO BID 06/19/24 06/19/24 History release ondansetron 4 mg disintegrating 4 mg PO TID PRN Nausea And Vomiting 06/19/24 06/19/24 History tablet oxycodone 5 mg tablet 5 mg PO TID PRN Severe Pain (Scale 06/19/24 06/19/24 His tory Score 7-10) pregabalin 25 mg capsule 50 mg PO TID 06/19/24 06/19/24 History ropinirole 0.5 mg tablet 0.5 mg PO HS 06/19/24 06/19/24 History rosuvastatin 10 mg tablet 10 mg PO DAILY 06/19/24 06/19/24 History valacyclovir 500 mg tablet 500 mg PO Q2D 06/19/24 06/19/24 History zinc 25 mg tablet 25 mg PO DAILY 06/19/24 06/19/24 History Past Med/Surg History Problem List (Updated 06/20/24 @ 02:38 by KHOI Jackman) Encephalopathy COVID-19 Septic shock Lethargy Pneumonia (Acute) Diarrhea Change in bowel habits Small bowel obstruction Complicated UTI (urinary tract infection) Weakness (Acute) Abdominal pain (Acute) Nausea & vomiting (Acute) Acute UTI (Acute) Chronic headache Cystitis Neuropathy Nausea (Acute) Dyspnea on exertion Recurrent major depression in remission Pacemaker Medtronic, implanted 12/2022 (bradycardia) > pt does not know when last checked Status post placement of cardiac pacemaker Sinus node dysfunction Bronchiectasis pt unaware ILD (interstitial lung disease) Osteoporosis History of esophageal dilatation Hypothyroidism Secondary hyperparathyroidism Chronic kidney disease stage 3b GERD without esophagitis Reactive hypoglycemia Vitamin D deficiency Obesity Sleep apnea complex sleep apnea, BIPAP (non-compliant) Chronic sinusitis Pancreatic insufficiency chronic pancreatitis Asthma Chronic diastolic (congestive) heart failure Follows with [facility] cardiology Pernicious anemia (08/08/13) Medical History History of small bowel obstruction Sinus node dysfunction Bronchiectasis ILD (interstitial lung disease) Secondary hyperparathyroidism Pancreatic insufficiency Neuropathy Pernicious anemia History of sepsis 2019 [facility] Reactive hypoglycemia HULL (dyspnea on exertion) GERD (gastroesophageal reflux disease) Chronic sinusitis Cystitis Chronic kidney disease stage 3, follows with Dr Roberts Chronic diastolic (congestive) heart failure follows with [facility] cardiology Sleep apnea complex sleep apnea, BIPAP (non-compliant) COPD (chronic obstructive pulmonary disease) Asthma Difficulty swallowing "trouble swallowing pills" History of DVT (deep vein thrombosis) remote hx, unknown etiology, Junctional bradycardia Pulmonary hypertension mild per 07/[address] report Atherosclerosis of both lower extremities Lumbar transverse process fracture Pt reports lower back detioriating - can't lie flat/sleep on a chair Pulmonary nodule seen on imaging study Wrist injury Scar tissue surrounding remote wrist ORIF several years ago resulting in intermittent inflammation per pt Bilateral nephrolithiasis current on CT scan H/O concussion Remote hx "a long time ago" Incisional hernia Abdominal (from multiple surgeries/feeding tube) Chronic urinary tract infection recent hospitalization for this at [facility] DC'ed 02/14/2024> pt reports no sym ptoms Chronic venous insufficiency Port-A-Cath in place right side due to poor vascular access Urinary leakage PUD (peptic ulcer disease) Had feeding tube for 28 years (has been removed for 11 years) Lumbar stenosis Short bowel syndrome Surgical History History of cystoscopy multiple H/O shoulder surgery RT arthroscopy 05/28/2021: LMA#4 atraumatic x 1 + PNB. Anesthesia postop progress note: "Pt denies SOB at this time. Block is functioning well. Vital signs stable and appropriate. Oxygenating well considering block placement and her comorbidities. Plan to discharge home with IS." S/P right rotator cuff repair S/P ureteral stent placement Status post laser lithotripsy of ureteral calculus History of prior ablation treatment Right LE in January 2020 and left LE 04/18/20 History of partial gastrectomy History of sinus surgery History of tonsillectomy and adenoidectomy History of total abdominal hysterectomy and bilateral salpingo-oophorectomy History of cholecystectomy History of appendectomy History of open reduction and internal fixation (ORIF) procedure left wrist + manipulation (01/2018) and I&D (10/2019) History of joint replacement Rt thumb History of knee replacement procedure of right knee History of esophagogastroduodenoscopy (EGD) with dilatation History of colonoscopy History of gastrointestinal surgery multiple History of cardiac cath 08/2019 ([facility])- essentially normal coronary arteries angiographically, no stents Family History Mother Family history of diabetes mellitus Sister Family history of diabetes mellitus Family history of breast cancer Father Esophageal cancer Other Family history non-contributory No family history of adverse response to anesthesia Social History Smoking Status: Never smoker Second Hand Exposure: No; Do You Dip or Chew Tobacco: No; Hx Alcohol Use: Yes Alcohol type: beer Hx Substance Use: No Preferred Language: Bermudian Communication Ability: Effective Visual Impairment: No Limitations Midlevel Provider Required: No Beliefs That Will Affect Care: None marital status: Single Current Living Situation: Personal Care Facility Current Living Situation Comment: [facility] How many Children do You have: 0 Feels Safe at Home: Yes Safety Concerns: Feels Safe At This Time Assistive Devices: Denture - Upper, Denture - Lower, Glasses and Walker Review of Systems Review of Systems: Unobtainable due to reduced consciousness Physical Exam Physical Exam: General- Lethargic Head- atraumatic Eyes- PERRL. Neck- no JVD, Lungs- clear to auscultation mild rhonchi bilateral Heart- regular rate and rhythm; no murmur, no gallop. Abdomen- normal bowel sounds, soft, multiple surgical scars seen no distension Extremities- no pretibial edema, small superficial wound seen on left alberto Neuro- Drowsy; not responding to verbal or mild painful stimuli Results & Data Results & Data Vital Signs (Past 12 Hours) Vital Signs Temp Pulse Pulse Resp BP BP Pulse Ox 06/19/24 22:47 96 H 44 H 82/50 L 94 06/19/24 22:25 97 H 40 H 91/44 L 94 06/19/24 22:10 97 H 06/19/24 21:35 97 H 30 H 97/58 L 95 06/19/24 21:00 104 H 23 111/65 94 06/19/24 20:32 97 H 36 H 106/63 94 06/19/24 20:11 96 H 34 H 93 06/19/24 20:10 96 H 34 H 97/53 L 93 06/19/24 19:56 99 H 18 112/49 L 94 06/19/24 19:17 95 H 39 H 90/54 L 100 06/19/24 18:47 96 H 34 H 105/59 L 100 06/19/24 18:05 36.5 C 94 H 30 H 104/48 L 96 06/19/24 18:05 06/19/24 17:59 36.5 C 94 H 30 H 104/48 L 96 06/19/24 17:51 94 H O2 Del Method O2 Flow Rate 06/19/24 22:47 Nasal Cannula 4 06/19/24 22:25 Nasal Cannula 4 06/19/24 22:10 06/19/24 21:35 Nasal Cannula 4 06/19/24 21:00 Nasal Cannula 4 06/19/24 20:32 Nasal Cannula 4 06/19/24 20:11 Nasal Cannula 4 06/19/24 20:10 Nasal Cannula 4 06/19/24 19:56 Nasal Cannula 4 06/19/24 19:17 Nasal Cannula 4 06/19/24 18:47 Nasal Cannula 4 06/19/24 18:05 Nasal Cannula 4 06/19/24 18:05 Nasal Cannula 4 06/19/24 17:59 Nasal Cannula 4 06/19/24 17:51 Diagnostic Findings Laboratory Results WBC 5.59 K/ul (4.8-10.8) 06/19/24 18:57 RBC 4.54 M/uL (4.20-5.40) 06/19/24 18:57 Hgb 13.7 g/dl (12.0-16.0) 06/19/24 18:57 Hct 42.4 % (37.0-47.0) 06/19/24 18:57 MCV 93.4 fL (80.0-100.0) 06/19/24 18:57 MCH 30.2 pg (25.0-34.0) 06/19/24 18:57 MCHC 32.3 g/dL (32.0-36.0) 06/19/24 18:57 RDW Std Deviation 49.4 fL (36.4-46.3) H 06/19/24 18:57 RDW Coeff of David 14.3 % (11.5-14.5) 06/19/24 18:57 Plt Count 142 K/uL (130-400) 06/19/24 18:57 MPV 9.6 fL (9.4-12.4) 06/19/24 18:57 Immature Gran % (Auto) 0.4 % 06/19/24 18:57 Neut % (Auto) 81.0 % 06/19/24 18:57 Lymph % (Auto) 9.1 % 06/19/24 18:57 Bates % (Auto) 9.3 % 06/19/24 18:57 Eos % (Auto) 0.0 % 06/19/24 18:57 Baso % (Auto) 0.2 % 06/19/24 18:57 Neut # (Auto) 4.53 K/uL (1.40-6.50) 06/19/24 18:57 Lymph # (Auto) 0.51 K/uL (1.20-3.40) L 06/19/24 18:57 Bates # (Auto) 0.52 K/uL (0.11-0.59) 06/19/24 18:57 Eos # (Auto) 0.00 K/uL (0.00-0.50) 06/19/24 18:57 Baso # (Auto) 0.01 K/uL (0.00-0.20) 06/19/24 18:57 Immature Gran # (Auto) 0.02 K/uL (0.01-0.20) 06/19/24 18:57 PT 11.9 Seconds (9.0-12.0) 06/19/24 18:57 INR 1.1 (0.9-1.1) 06/19/24 18:57 VBG pH 7.41 (7.36-7.41) 06/19/24 19:50 VBG pCO2 41 mmHg (38-50) 06/19/24 19:50 VBG pO2 40 mmHg 06/19/24 19:50 VBG HCO3 26 mmol/L 06/19/24 19:50 VBG O2 Saturation 70.3 % 06/19/24 19:50 VBG Base Excess 1.2 mEq/L 06/19/24 19:50 Sodium 142 mmol/L (136-145) 06/19/24 18:57 Potassium 2.9 mmol/L (3.5-5.1) L 06/19/24 18:57 Chloride 106 mmol/L (98-107) 06/19/24 18:57 Carbon Dioxide 27 mmol/L (21-32) 06/19/24 18:57 Anion Gap 9 (3-11) 06/19/24 18:57 BUN 32 mg/dl (6-23) H 06/19/24 18:57 Creatinine 1.02 mg/dl (0.6-1.2) 06/19/24 18:57 Est Cr Clr Drug Dosing 45.9 ml/min 06/19/24 18:57 Est GFR ( Amer) 64.1 ml/min 06/19/24 18:57 Est GFR (Non-Af Amer) 55.3 ml/min 06/19/24 18:57 BUN/Creatinine Ratio 31.4 (10-20) H 06/19/24 18:57 Glucose 111 mg/dl (70-99(Fasting)) H 06/19/24 18:57 POC Glucose 86 mg/dl (70-99) 06/19/24 17:49 Lactate 1.0 mmol/L (0.4-2.0) 06/19/24 18:57 Calcium 9.0 mg/dl (8.6-10.3) 06/19/24 18:57 Magnesium 2.3 mg/dl (1.7-2.4) 06/19/24 18:57 Total Bilirubin 0.4 mg/dl (0.2-1.0) 06/19/24 18:57 Direct Bilirubin 0.1 mg/dl (0-0.2) 06/19/24 18:57 AST 68 U/L (13-39) H 06/19/24 18:57 ALT 25 U/L (7-52) 06/19/24 18:57 Alkaline Phosphatase 58 U/L (34-104) 06/19/24 18:57 Troponin I High Sens 211.7 pg/ml (0-14) H* D 06/19/24 21:29 B-Natriuretic Peptide 315 pg/ml (0-100) H 06/19/24 18:57 Total Protein 6.1 gm/dl (6.0-8.3) 06/19/24 18:57 Albumin 3.8 gm/dl (3.4-5.0) 06/19/24 18:57 Procalcitonin 20.20 ng/ml (0-0.5) H 06/19/24 18:57 Urine Color Yellow 06/19/24 20:04 Urine Appearance Clear (Clear) 06/19/24 20:04 Urine pH 7.0 (4.5-7.5) 06/19/24 20:04 Ur Specific Brielle 1.014 (1.000-1.030) 06/19/24 20:04 Urine Protein 2+ (Negative) H 06/19/24 20:04 Urine Glucose (UA) Negative (Negative) 06/19/24 20:04 Urine Ketones 1+ (Negative) H 06/19/24 20:04 Urine Blood 3+ (Negative) H 06/19/24 20:04 Urine Nitrite Negative (Negative) 06/19/24 20:04 Urine Bilirubin Negative (Negative) 06/19/24 20:04 Urine Urobilinogen Negative (Negative) 06/19/24 20:04 Ur Leukocyte Esterase 1+ (Negative) H 06/19/24 20:04 Urine WBC (Auto) 0-5 /hpf (0-5) 06/19/24 20:04 Urine RBC (Auto) 11-20 /hpf (0-2) H 06/19/24 20:04 U Hyaline Cast (Auto) 0-2 /lpf (0-2) 06/19/24 20:04 U Epithel Cells (Auto) 0-2 /hpf (0-2) 06/19/24 20:04 Urine Bacteria (Auto) 1+ (None Seen) H 06/19/24 20:04 Adenovirus (PCR) Not Detected (NotDetected) 06/19/24 20:04 B. pertussis DNA (PCR) Not Detected (NotDetected) 06/19/24 20:04 B.parapertussis DNA PCR Not Detected (NotDetected) 06/19/24 20:04 C. pneumoniae DNA (PCR) Not Detected (NotDetected) 06/19/24 20:04 Coronavirus OC43 (PCR) Not Detected (NotDetected) 06/19/24 20:04 Coronavirus HKU1 (PCR) Not Detected (NotDetected) 06/19/24 20:04 Coronavirus 229E (PCR) Not Detected (NotDetected) 06/19/24 20:04 SARS-CoV-2 (PCR) DETECTED (NotDetected) A 06/19/24 20:04 Coronavirus NL63 (PCR) Not Detected (NotDetected) 06/19/24 20:04 Human Metapneumovir PCR Not Detected (NotDetected) 06/19/24 20:04 Influenza Type A (PCR) Not Detected (NotDetected) 06/19/24 20:04 Influenza Type B (PCR) Not Detected (NotDetected) 06/19/24 20:04 M. pneumoniae (PCR) Not Detected (NotDetected) 06/19/24 20:04 Parainfluenza 1 (PCR) Not Detected (NotDetected) 06/19/24 20:04 Parainfluenza 2 (PCR) Not Detected (NotDetected) 06/19/24 20:04 Parainfluenza 3 (PCR) Not Detected (NotDetected) 06/19/24 20:04 Parainfluenza 4 (PCR) Not Detected (NotDetected) 06/19/24 20:04 RSV (PCR) Not Detected (NotDetected) 06/19/24 20:04 Entero/Rhino (PCR) Not Detected (NotDetected) 06/19/24 20:04 Impressions Chest X-Ray 06/19/24 18:08 XR chest 1V portable CLINICAL HISTORY: Sepsis TECHNIQUE: Single frontal radiograph of the chest was obtained. Comparison: Comparison is made to chest radiograph 12/15/2023 FINDINGS: A port catheter is seen. The cardiomediastinal silhouette is normal. Left lower lung airspace opacity is seen. Interstitial thickening is noted. No evidence of pleural effusion or pneumothorax. IMPRESSION: Left lower lung airspace opacity. This may represent atelectasis, pneumonia, and/or aspiration. ACT 112: Negative or not required by law. Electronically signed by: Evan Ventura M.D. 06/19/2024 7:[address] 06/19/24 18:11 Exam(s): CT HEAD Without Contrast EXAM: CT Head Without Intravenous Contrast CLINICAL HISTORY: LESLIE. TECHNIQUE: Axial computed tomography images of the head/brain without intravenous contrast. CTDI is 36.31 mGy and DLP is 546.36 mGy-cm. Automated exposure control was utilized for the study. A dose lowering technique was utilized adhering to the principles of ALARA. COMPARISON: CT head without contrast dated 02/04/2024 FINDINGS: Brain: No intracranial hemorrhage. No significant mass effect. No cortical infarct. Stable parenchymal involutional changes with prominence of the cerebral sulci and sylvian fissures. No significant white matter disease. Ventricles: No midline shift or ventriculomegaly. Bones/joints: Unremarkable. No acute fracture. Soft tissues: Unremarkable. Sinuses: Mucosal thickening and opacification of the right maxillary sinus and a few anterior right ethmoid air cells. Stable postoperative changes with turbulent resection. Mastoid air cells: Unremarkable as visualized. No mastoid effusion. IMPRESSION: No acute intracranial process or significant alteration from the prior examination with chronic underlying presumed age-related findings. Electronically signed by: Alfredo Aguilar MD 06/19/24 20:33 PM Abdomen/Pelvis CT 06/19/24 18:12 Exam(s): CT ABDOMEN + PELVIS Without Contrast EXAM: CT Abdomen and Pelvis Without Intravenous Contrast CLINICAL HISTORY: N/V. TECHNIQUE: Axial computed tomography images of the abdomen and pelvis without intravenous contrast. CTDI is 63.53 mGy and DLP is 1249 mGy-cm. Automated exposure control was utilized for the study. A dose lowering technique was utilized adhering to the principles of ALARA. COMPARISON: CT abdomen and pelvis with contrast dated 02/10/2024 FINDINGS: Limitations: There is respiratory artifact, which degrades image quality on multiple image slices. Lung bases: Patchy airspace consolidation involving the inferior lingular segments and left lower, new from the previous examination. Additional subsegmental changes at the right lung base are chronic atelectasis or fibrosis. Heart: Cardiomegaly. Implanted cardiac monitoring device. ABDOMEN: Liver: The liver is unremarkable, accounting for lack of IV contrast and respiratory artifact. Gallbladder and bile ducts: The gallbladder is not clearly delineated. Similar ectasia of the common bile duct. No significant intrahepatic biliary dilatation. Pancreas: Unremarkable. No ductal dilation. Spleen: Unremarkable. No splenomegaly. Adrenals: Unremarkable. No mass. Kidneys and ureters: The right kidney remains atrophic and somewhat dysmorphic in appearance. Stable nonobstructive nephrolithiasis noted internally. The normal caliber left kidney demonstrates nonobstructive nephrolithiasis, subcentimeter in size involving inferior pole calyces. No hydronephrosis. No ureteral stones. Stomach and bowel: Postsurgical changes involving the stomach consistent with prior gastric bypass. The duodenum appears to be ligated proximally. There is prominent fluid dilation of the duodenum and a proximal jejunal loop with a relative transition to decompressed small bowel loops anteriorly. There are also nonspecific fluid and gas distended, but not dilated small bowel loops in the central pelvis. Moderate stool burden. PELVIS: Appendix: No findings to suggest acute appendicitis. Bladder: Unremarkable. No stones. Reproductive: Status post hysterectomy. ABDOMEN and PELVIS: Intraperitoneal space: Unremarkable. No free air. No significant fluid collection. Bones/joints: No acute osseous abnormality. No alteration from the prior examination. Soft tissues: Chronic dysmorphic appearance of the anterior abdominal wall with laxity and marked lobulation. The number of the bowel loops lie immediately deep to the skin surface, as noted on the previous examination. Vasculature: Unremarkable. No abdominal aortic aneurysm. Lymph nodes: Unremarkable. No enlarged lymph nodes. IMPRESSION: 1. Patchy airspace consolidation involving the inferior lingular segments and left lower, new from the previous examination. The primary consideration is left basilar pneumonia. 2. Postsurgical changes involving the stomach consistent with prior gastric bypass. The duodenum appears to be ligated proximally. There is prominent fluid dilation of the duodenum and a proximal jejunal loop with a relative transition to decompressed small bowel loops anteriorly. There are also nonspecific fluid and gas distended, but not dilated small bowel loops in the central pelvis. Findings suggest jejunitis/enteritis. A proximal small bowel obstruction is difficult to exclude. Recommend serial radiographic evaluation or dedicated small bowel follow-through, as clinically indicated. Electronically signed by: Alfredo Aguilar MD 06/19/24 20:44 PM ECG Additional Comments: ECG. Normal sinus rhythm with a rate of 93. Left axis deviation. Left ventricular hypertrophy. Code Status & VTE Plan VTE Prophylaxis Plan VTE Prophylaxis will be ordered: Yes
[2024-06-19] MEDS: DEXAMETHASONE SOD INJ 4 MG/ML VIAL IV STA (23:14)
[2024-06-19] MEDS: OPTIRAY 320 125ml IV ONE (23:49)
[2024-06-20] MEDS ORDERED: NITROGLYCERIN SL 0.4 MG/TAB TAB SL PRN
[2024-06-20] MEDS ORDERED: ALBUTEROL HFA 8 GM INHALER INH PRN
[2024-06-20] MEDS ORDERED: ALBUT/IPRATROP 3MG/0.5MG NEB 3 ML VIAL INH PRN
[2024-06-20] MEDS: VANCOMYCIN HCL 1,500 MG in SODIUM CHLORIDE 0.9% 500 ML IV STA (00:44)
--- NOTE | 2024-06-20 01:14 | CT Scan Report ---
Exam(s): CTA CHEST IV Amt: 118 ML OPTIRAY 320 EXAM: CT Angiography Chest With Intravenous Contrast CLINICAL HISTORY: Evaluate for potential PE. TECHNIQUE: Axial computed tomographic angiography images of the chest with intravenous contrast. CTDI is 30.26 mGy and DLP is 684.84 mGy-cm. Automated exposure control was utilized for the study. A dose lowering technique was utilized adhering to the principles of ALARA. MIP reconstructed images were created and reviewed. COMPARISON: CT chest without contrast dated 11/30/2023 FINDINGS: Limitations: There is respiratory artifact, which degrades image quality throughout the examination. Pulmonary arteries: Accounting for limitations with respiratory artifact, there is no definite evidence for pulmonary embolism. Aorta: The thoracic aorta is unremarkable. No dissection or significant aneurysm. Lungs: Dense consolidation involving the left lower lobe with an area of diminished enhancement within the dense consolidation posteriorly, measuring approximately 3 x 4.8 cm. Additional areas of consolidation noted involving the inferior left lingular segments and right medial basal segment. Patchy opacities also noted in the anterior right upper lobe. There is some layering fluid noted involving the posterior aspect of the proximal right and left bronchi with complete opacification of the subsegmental branches serving the consolidation involving the left lingular segments and left lower lobe. Pleural space: The right pleural effusion is noted with some mild lobulation superiorly. The pleural effusion is small in volume, measuring up to 1.5 cm. No pneumothorax. Heart: Cardiomegaly. Implanted cardiac monitoring device is noted in the right ventricle. Mediastinum: Abnormal mucosal thickening suggested involving the mid esophagus. No esophageal obstruction or pneumomediastinum. Bones/joints: No acute fracture. No dislocation. Soft tissues: Unremarkable. Lymph nodes: Unremarkable. No enlarged lymph nodes. Tubes, lines and devices: A right internal jugular approach portacatheter is noted with the tip in the right atrium. IMPRESSION: 1. Accounting for limitations with respiratory artifact, there is no definite evidence for pulmonary embolism. 2. Dense consolidation involving the left lower lobe with an area of diminished enhancement within the dense consolidation posteriorly, measuring approximately 3 x 4.8 cm. Findings are consistent with pneumonia with suspected internal developing necrotizing process. No cavitation noted. 3. Additional areas of consolidation noted involving the inferior left lingular segments and right medial basal segment. Patchy opacities also noted in the anterior right upper lobe. 4. There is some layering fluid noted involving the posterior aspect of the proximal right and left bronchi with complete opacification of the subsegmental branches serving the consolidation involving the left lingular segments and left lower lobe. This may represent aspiration or endobronchial secretions. 5. Abnormal mucosal thickening suggested involving the mid esophagus. No esophageal obstruction or pneumomediastinum. Findings suggest esophagitis. 6. The right pleural effusion is noted with some mild lobulation superiorly. The pleural effusion is small in volume, measuring up to 1.5 cm. Electronically signed by: Alfredo Aguilar MD 06/20/24 01:13 AM
[2024-06-20] MEDS: SODIUM CHLORIDE 0.9% 500 ML IV SCH (01:32)
[2024-06-20] MEDS: MEROPENEM 500 MG in SYRINGE 0 ML IV SCH ×2 (01:38→08:59)
--- NOTE | 2024-06-20 02:21 | Critical Care Consultation ---
Date of Consultation June 20, 2024 Assessment & Plan (1) Septic shock: (2) COVID-19: (3) Encephalopathy: (4) Pneumonia: (5) Diarrhea: (6) ILD (interstitial lung disease): (7) Hypothyroidism: (8) Chronic kidney disease: (9) Chronic diastolic (congestive) heart failure: (10) Pancreatic insufficiency: Plan Reason Critically Ill: 73 YOF presents with worsening encephalopathy, weakness in setting of pneumonia and COVID 19. High likelihood of requiring vasopressors and intubation if BiPAP bridge not successful. Neuro - Metabolic Encephalopathy, neuropathy, chronic body pain CAM ICU: YESSY - Multifactorial at this time to include hypovolemia and COVID and pulmonary bacterial infection - if encephalopathy worsens or no improvement may need to consider LP and/or advanced imaging - TSH pending - supportive care - Chronic body pain - Continue Lyrica when able- adjust if needed for renal function - Hold Percocet Cardiac - septic shock, hx of pacemaker for sinus node dysfunction, elevated HsCTNI - Shock likely combination of septic and hypovolemic in setting of chronic diarrhea and n/v at home with decreased oral intake - Organ dysfunction- lungs, heart, brain, kidney - received 3L crystalloid in the EMD- re-evaluate volume status on arrival to ICU with POCUS and UO - Source likely pulmonary at this time- bacterial and viral likely complicated by aspiration - Vasopressors to maintain MAP >65 - See ID section for further care - Troponin elevated likely secondary to demand- ECG without STEMi- trend Respiratory - COVID 19, bilateral pneumonia, ILD, LARRY - Supportive care with COVID- Decadron 6mg IV daily - increase dose if worsening hypoxia - Defer remdisivir to admitting team - follow renal numbers - BIPAP 09/10- hopeful this will bridge her to prevent intubation - low threshold to intubate - FABIANA nebs scheduled - Zosyn, Vanco, Azithro for pulmonary coverage GI - Chronic diarrhea, possible SBO, Jejunitis/enteritis - No blood reported in stools- previously treated for Cdiff in February with NEGATIVE result 05/27/24 - Continue Welchol/pancrelipase for chronic - follow GI imaging for possible SBO with daily KUB next on 06/21 - Bowel rest for now - IV PPI while on steroids and NPO - Stool culture negative from 05/27/24 RENAL/LYTES - JAVI on CKD, hypokalemia - Supportive care as above- MAPS >65, crystalloid bolus based on hemodynamic/PLR/UO - ICU electrolyte protocol - Hx ESBL UTI - await cultures- continue Zosyn ENDO - Hypothyroidism - TSH pending on arrival - ICU hyper/hypoglycemic protocol HEME - No acute needs ID - COVID 19, Bilateral Pneumonia, Septic Shock with current source - pulmonary - Hx of MRSA in sputum - pending MRSA swab - Continue Zosyn and Vancomycin pending cx - May have component of aspiration as well - No leukocytosis, NLR 3:1, PCT 20.2 LINES/IV ACCESS - PIV, RT SCL Mediport Continue use of these lines DVT PROPHYLAXIS - SCDs, Lovenox 40 sub q q24 DISPO: ICU until hemodynamics and respiratory status stabilized. I have personally spent 50 minutes of critical care time in the direct management of this patient. This is a life/limb threatening event. This includes time spent evaluating patient, direct bedside care, chart review, placing orders, interpretation of diagnostic studies, discussion with consultants, patient, and family members, as well as other required patient management activities. This time is exclusive of all separately billable procedures, and teaching time and separate from and in addition to any other critical care service time. Thank you for allowing us to participate in the care of this patient. Please refer to my attending physician's documentation for any further recommendations. Supervising Physician Co-Signing Physician Notes Patient seen and examined. EMR reviewed. Discussed with overnight critical care ESTEVAN and agree with assessment plan as noted. Discussed with bedside critical care nurse as well as with multidisciplinary team and on multidisciplinary rounds. Case was also discussed with the patient's sister who is the designated POA. Patient remains critically ill with multifactorial encephalopathy and hypoxemic respiratory failure. She is on noninvasive positive pressure ventilation at this point time and can likely be transitioned to high flow oxygen if she is already hypocapnic. Her encephalopathy may be multifactorial as well. CT of the head showed no acute changes with some chronic underlying issues (prominent central sulci and fissures). She remains on pressors. CT scan demonstrated multifocal airspace opacity with dense consolidation in the right lower lobe. She is currently on meropenem remdesivir dexamethasone azithromycin and vancomycin. Cultures are negative to date but procalcitonin was significantly elevated. Will continue with meropenem and azithromycin (decreased to 250 mg daily). Continue vancomycin for now given the severity of her illness. May be able to discontinue in 24 to 48 hours if nasal MRSA swab negative. Unable to obtain deep respiratory cultures currently not a candidate for bronchoscopy without intubation. I do not think she is currently a candidate for IL-6 blockade Patient may well deteriorate to requiring intubation mechanical ventilation but will see how she does on high flow. If encephalopathy fails to clear with the patient remains hemodynamically unstable, may consider additional interventions however intubation and mechanical ventilation may come with significant morbidity and mortality in this patient with underlying structural lung disease (restrictive lung disease with potential ILD) and other underlying medical issues. Patient abiola critically ill with multiorgan system dysfunction. An additional 60 minutes of critical care time was spent in evaluation management and coordination of care in this critically ill patient History of Present Illness Reason for Consultation: septic shock Requesting Physician: Jerome Ventura MD Attending Physician: Souleymane Rodarte MD History of Present Illness 73 YOF with medical history of: UTI, ILD, Pacemaker for sinus node dysfunction, HfpEF, Esophageal stricture with dilation, LARRY, Restrictive lung disease, pancreatic insufficiency, and partial gastrectomy secondary to ulcers/and gastric bypass. Patient was brought to the EMD today for concerns of lethargy and alteration in mental status. Appears neighbors and ? family have been checking on the patient, and patient initially refused EMS transport notes reviewed show that when EMS arrived second time to evaluate the patient, she was very lethargic and dyspneic. In the EMD the patient was placed on NC with reported good response, VBG was obtained with normal PH and PCo2, she had blood cultures and urine cultures obtained. She initially had Head CT and CT abdomen and pelvis completed. ABD/Pelvis was notable for possible obstruction and jejunitis/enteritis, as well as noting what was visualized of the lungs with patchy airpace consolidation. She was tested for COVID and was noted to be positive, medicine was consulted for admission and she eventually had a CTA of the chest obtained, this was reported as negative for PE giveing the limitations from respiratory artifact, consolidation of LLL and RUL, as well as likely component of aspiration. She was noted to be more lethargic per hospitalist and she was placed on BiPAP. She was also noted at this time to becoming more hypotensive despite 3L crystalloid given prior. Patient was evaluated in B8 in the EMD, upon request of hospitalist service, patient was able to arouse to voice, open eyes and participate in some history taking. She is frail and tired appearing, BP was adequate at this time without any vasopressor support. She reports that she has been feeling ill for about a week, and just has no energy. She reports frequent coughing without sputum production. Patient will be brought to the ICU for continued supportive care, she may require intubation as well as vasopressors. CODE: FULL Allergies Allergy/AdvReac Type Severity Reaction Status Date / Time bethanechol Allergy Intermediate RASH, Verified 05/25/24 13:17 "FEELS FUNNY" Cephalosporins Allergy Intermediate RASH, Verified 05/25/24 13:17 DIARRHEA levofloxacin Allergy Intermediate RASH,TURNED Verified 05/25/24 13:17 RED Sulfa (Sulfonamide Allergy Intermediate Generalized Verified 05/25/24 13:17 Antibiotics) Rash ertapenem Allergy Mild RASH Verified 05/25/24 13:17 atropine Allergy Unknown ON [facility]G MED Verified 05/25/24 13:17 LIST clindamycin Allergy Unknown Unknown Verified 05/25/24 13:17 dipyridamole Allergy Unknown PERSANTINE--ON Verified 05/25/24 13:17 GMG MED LIST droperidol Allergy Unknown Unknown Verified 05/25/24 13:17 meperidine [From Demerol] Allergy Unknown ? ALLERGY Verified 05/25/24 13:17 ON [facility]G MED LIST promethazine Allergy Unknown UNKNOWN Verified 05/25/24 13:17 tobramycin Allergy Unknown UNKNOWN Verified 05/25/24 13:17 aspirin AdvReac Severe BLEEDING Verified 05/25/24 13:17 doxycycline AdvReac Severe severe Verified 05/25/24 13:17 Diarrhea, nausea metolazone AdvReac Severe ELECTROLYTE Verified 05/25/24 13:17 ISSUES--HYPOKALEMIA bupropion AdvReac Intermediate NERVOUS Verified 05/25/24 13:17 REACTION cephalexin AdvReac Intermediate GI SYMPTOMS Verified 05/25/24 13:17 morphine AdvReac Intermediate NERVOUS Verified 05/25/24 13:17 REACTION TO IT nitrofurantoin AdvReac Intermediate Vomiting Verified 05/25/24 13:17 [From Macrobid] prochlorperazine AdvReac Intermediate NERVOUS Verified 05/25/24 13:17 REACTION tedizolid AdvReac Intermediate GI SYMPTOMS Verified 05/25/24 13:17 venlafaxine [From Effexor] AdvReac Intermediate NERVOUS Verified 05/25/24 13:17 REACTION lamotrigine AdvReac Unknown tremors Verified 05/25/24 13:17 Home Medications Medication Instructions Recorded Confirmed Type albuterol sulfate 90 mcg/actuation 2 puff inhalation Q6H PRN 06/19/24 06/19/24 History aerosol inhaler Shortness Of Breath Or Wheezing calcitriol 0.5 mcg capsule 0.5 mcg PO DAILY 06/19/24 06/19/24 History calcium carbonate 600 mg-vitamin 2 tab PO TID 06/19/24 06/19/24 History D3 10 mcg (400 unit) tablet cetirizine 10 mg tablet 10 mg PO DAILY PRN Allergic 06/19/24 06/19/24 History Symptoms denosumab 60 mg/mL subcutaneous 60 mg subcut UD 06/19/24 06/19/24 History syringe (Prolia) duloxetine 30 mg capsule,delayed 30 mg PO DAILY 06/19/24 06/19/24 History release famotidine 20 mg tablet 20 mg PO HS 06/19/24 06/19/24 History fluticasone furoate 200 1 inh inhalation DAILY 06/19/24 06/19/24 History mcg-vilanterol 25 mcg/dose inhalation powder (Breo Ellipta) ipratropium 0.5 mg-albuterol 3 mg 3 ml inhalation Q4H PRN Shortness 06/19/24 06/19/24 History (2.5 mg base)/3 mL nebulization Of Breath Or Wheezing soln lamotrigine 25 mg tablet 25 mg PO UD 06/19/24 06/19/24 History levothyroxine 88 mcg tablet 88 mcg PO DAILY 06/19/24 06/19/24 History gvfuql-suuwtsqf-cangilu 4 cap PO TID 06/19/24 06/19/24 History 24,000-76,000-120,000 unit capsule,delayed rel (Creon) metoclopramide HCl 5 mg tablet 5 mg PO TID PRN Nausea And Vomiting 06/19/24 06/19/24 History montelukast 10 mg tablet 10 mg PO HS 06/19/24 06/19/24 History nitroglycerin 0.4 mg sublingual 0.4 mg sublingual UD PRN Chest Pain 06/19/24 06/19/24 History tablet omeprazole 20 mg capsule,delayed 20 mg PO BID 06/19/24 06/19/24 History release ondansetron 4 mg disintegrating 4 mg PO TID PRN Nausea And Vomiting 06/19/24 06/19/24 History tablet oxycodone 5 mg tablet 5 mg PO TID PRN Severe Pain (Scale 06/19/24 06/19/24 History Score 7-10) pregabalin 25 mg capsule 50 mg PO TID 06/19/24 06/19/24 History ropinirole 0.5 mg tablet 0.5 mg PO HS 06/19/24 06/19/24 History rosuvastatin 10 mg tablet 10 mg PO DAILY 06/19/24 06/19/24 History valacyclovir 500 mg tablet 500 mg PO Q2D 06/19/24 06/19/24 History zinc 25 mg tablet 25 mg PO DAILY 06/19/24 06/19/24 History Patient History Medical History History of small bowel obstruction Sinus node dysfunction Bronchiectasis ILD (interstitial lung disease) Secondary hyperparathyroidism Pancreatic insufficiency Neuropathy Pernicious anemia History of sepsis 2019 [facility] Reactive hypoglycemia HULL (dyspnea on exertion) GERD (gastroesophageal reflux disease) Chronic sinusitis Cystitis Chronic kidney disease stage 3, follows with Dr Roberts Chronic diastolic (congestive) heart failure follows with [facility] cardiology Sleep apnea complex sleep apnea, BIPAP (non-compliant) COPD (chronic obstructive pulmonary disease) Asthma Difficulty swallowing "trouble swallowing pills" History of DVT (deep vein thrombosis) remote hx, unknown etiology, Junctional bradycardia Pulmonary hypertension mild per 07/[address] report Atherosclerosis of both lower extremities Lumbar transverse process fracture Pt reports lower back detioriating - can't lie flat/sleep on a chair Pulmonary nodule seen on imaging study Wrist injury Scar tissue surrounding remote wrist ORIF several years ago resulting in intermittent inflammation per pt Bilateral nephrolithiasis current on CT scan H/O concussion Remote hx "a long time ago" Incisional hernia Abdominal (from multiple surgeries/feeding tube) Chronic urinary tract infection recent hospitalization for this at [facility] DC'ed 02/14/2024> pt reports no symptoms Chronic venous insufficiency Port-A-Cath in place right side due to poor vascular access Urinary leakage PUD (peptic ulcer disease) Had feeding tube for 28 years (has been removed for 11 years) Lumbar stenosis Short bowel syndrome Surgical History History of cystoscopy multiple H/O shoulder surgery RT arthroscopy 05/28/2021: LMA#4 atraumatic x 1 + PNB. Anesthesia postop progress note: "Pt denies SOB at this time. Block is functioning well. Vital signs stable and appropriate. Oxygenating well considering block placement and her comorbidities. Plan to discharge home with IS." S/P right rotator cuff repair S/P ureteral stent placement Status post laser lithotripsy of ureteral calculus History of prior ablation treatment Right LE in January 2020 and left LE 04/18/20 History of partial gastrectomy History of sinus surgery History of tonsillectomy and adenoidectomy History of total abdominal hysterectomy and bilateral salpingo-oophorectomy History of cholecystectomy History of appendectomy History of open reduction and internal fixation (ORIF) procedure left wrist + manipulation (01/2018) and I&D (10/2019) History of joint replacement Rt thumb History of knee replacement procedure of right knee History of esophagogastroduodenoscopy (EGD) with dilatation History of colonoscopy History of gastrointestinal surgery multiple History of cardiac cath 08/2019 ([facility])- essentially normal coronary arteries angiographically, no stents Family History Mother Family history of diabetes mellitus Sister Family history of diabetes mellitus Family history of breast cancer Father Esophageal cancer Other Family history non-contributory No family history of adverse response to anesthesia Social History Smoking Status: Never smoker Second Hand Exposure: No; Do You Dip or Chew Tobacco: No; Hx Alcohol Use: Yes Alcohol type: beer Hx Substance Use: No Preferred Language: Salvadorean Communication Ability: Effective Visual Impairment: No Limitations Electrical Systems Drafter Required: No Beliefs That Will Affect Care: None marital status: Single Current Living Situation: Personal Care Facility Current Living Situation Comment: [facility] How many Children do You have: 0 Feels Safe at Home: Yes Safety Concerns: Feels Safe At This Time Assistive Devices: Denture - Upper, Denture - Lower, Glasses and Walker Review of Systems Review of Systems: unable to obtain full ROS secondary to lethargy. ROS per HPI Physical Exam Physical Exam: PHYSICAL EXAM: General: Lethargic, fatigued appearing, Head: Normocephalic, atraumatic ENT: PERRLA, EOMI, mucous membranes dry Neuro: AAO x 3, speech clear and appropriate, strength intact bilaterally 5/5, sensation intact and equal all extremities Chest: equal rise and fall of the chest, on BiPAP without retractions, decreased through out with scattered rhonchi and end expiratory wheeze Cardiac: Regular rate and rhythm, telemetry reviewed- NSR, skin warm dry, cap refill <3 seconds, peripheral pulses +2 no JVD, no murmur, trace peripheral edema GI: NABS x 4 quadrants, soft, nontender to palpation, no rebound, guarding or tenderness Skin: no rash or erythema Results & Data Results & Data Vital Signs (Past 12 Hours) Vital Signs Temp Pulse Pulse Resp BP BP Pulse Ox 06/20/24 01:14 06/20/24 01:14 93 H 44 H 82/50 L 97 06/20/24 00:30 95 H 38 H 97 06/20/24 00:00 94 H 28 H 87/56 L 97 06/19/24 23:00 97 H 44 H 98/75 L 93 06/19/24 22:47 96 H 44 H 82/50 L 94 06/19/24 22:25 97 H 40 H 91/44 L 94 06/19/24 22:10 97 H 06/19/24 21:35 97 H 30 H 97/58 L 95 06/19/24 21:00 104 H 23 111/65 94 06/19/24 20:32 97 H 36 H 106/63 94 06/19/24 20:11 96 H 34 H 93 06/19/24 20:10 96 H 34 H 97/53 L 93 06/19/24 19:56 99 H 18 112/49 L 94 06/19/24 19:17 95 H 39 H 90/54 L 100 06/19/24 18:47 96 H 34 H 105/59 L 100 06/19/24 18:05 36.5 C 94 H 30 H 104/48 L 96 06/19/24 18:05 06/19/24 17:59 36.5 C 94 H 30 H 104/48 L 96 06/19/24 17:51 94 H Pulse Ox O2 Del Method O2 Del Method O2 Flow Rate FiO2 09/16/24 01:14 97 BiPAP 06/20/24 01:14 Room Air 06/20/24 00:30 60 06/20/24 00:00 BiPAP 06/19/24 23:00 Nasal Cannula 4 06/19/24 22:47 Nasal Cannula 4 06/19/24 22:25 Nasal Cannula 4 06/19/24 22:10 06/19/24 21:35 Nasal Cannula 4 06/19/24 21:00 Nasal Cannula 4 06/19/24 20:32 Nasal Cannula 4 06/19/24 20:11 Nasal Cannula 4 06/19/24 20:10 Nasal Cannula 4 06/19/24 19:56 Nasal Cannula 4 06/19/24 19:17 Nasal Cannula 4 06/19/24 18:47 Nasal Cannula 06/19/24 18:05 Nasal Cannula 4 06/19/24 18:05 Nasal Cannula 06/19/24 17:59 Nasal Cannula 06/19/24 17:51 Laboratory Results Abnormal lab results 06/19/24 06/19/24 06/19/24 Range/Units 18:57 20:04 21:29 RDW Std Deviation 49.4 H (36.4-46.3) fL Lymph # (Auto) 0.51 L (1.20-3.40) K/uL Potassium 2.9 L (3.5-5.1) mmol/L BUN 32 H (6-23) mg/dl BUN/Creatinine Ratio 31.4 H (10-20) Glucose 111 H (70-99(Fasting)) mg/dl AST 68 H (13-39) U/L Troponin I High Sens 134.7 H* 211.7 H* D (0-14) pg/ml B-Natriuretic Peptide 315 H (0-100) pg/ml Procalcitonin 20.20 H (0-0.5) ng/ml Urine Protein 2+ H (Negative) Urine Ketones 1+ H (Negative) Urine Blood 3+ H (Negative) Ur Leukocyte Esterase 1+ H (Negative) Urine RBC (Auto) 11-20 H (0-2) /hpf Urine Bacteria (Auto) 1+ H (None Seen) SARS-CoV-2 (PCR) DETECTED A (NotDetected) Diagnostic Findings Chest X-Ray 06/19/24 18:08 XR chest 1V portable CLINICAL HISTORY: Sepsis TECHNIQUE: Single frontal radiograph of the chest was obtained. Comparison: Comparison is made to chest radiograph 12/15/2023 FINDINGS: A port catheter is seen. The cardiomediastinal silhouette is normal. Left lower lung airspace opacity is seen. Interstitial thickening is noted. No evidence of pleural effusion or pneumothorax. IMPRESSION: Left lower lung airspace opacity. This may represent atelectasis, pneumonia, and/or aspiration. ACT 112: Negative or not required by law. Electronically signed by: Evan Ventura M.D. 06/19/2024 7:[address] 06/19/24 18:11 Exam(s): CT HEAD Without Contrast EXAM: CT Head Without Intravenous Contrast CLINICAL HISTORY: LESLIE. TECHNIQUE: Axial computed tomography images of the head/brain without intravenous contrast. CTDI is 36.31 mGy and DLP is 546.36 mGy-cm. Automated exposure control was utilized for the study. A dose lowering technique was utilized adhering to the principles of ALARA. COMPARISON: CT head without contrast dated 02/04/2024 FINDINGS: Brain: No intracranial hemorrhage. No significant mass effect. No cortical infarct. Stable parenchymal involutional changes with prominence of the cerebral sulci and sylvian fissures. No significant white matter disease. Ventricles: No midline shift or ventriculomegaly. Bones/joints: Unremarkable. No acute fracture. Soft tissues: Unremarkable. Sinuses: Mucosal thickening and opacification of the right maxillary sinus and a few anterior right ethmoid air cells. Stable postoperative changes with turbulent resection. Mastoid air cells: Unremarkable as visualized. No mastoid effusion. IMPRESSION: No acute intracranial process or significant alteration from the prior examination with chronic underlying presumed age-related findings. Electronically signed by: Alfredo Aguilar MD 06/19/24 20:33 PM Abdomen/Pelvis CT 06/19/24 18:12 Exam(s): CT ABDOMEN + PELVIS Without Contrast EXAM: CT Abdomen and Pelvis Without Intravenous Contrast CLINICAL HISTORY: N/V. TECHNIQUE: Axial computed tomography images of the abdomen and pelvis without intravenous contrast. CTDI is 63.53 mGy and DLP is 1249 mGy-cm. Automated exposure control was utilized for the study. A dose lowering technique was utilized adhering to the principles of ALARA. COMPARISON: CT abdomen and pelvis with contrast dated 02/10/2024 FINDINGS: Limitations: There is respiratory artifact, which degrades image quality on multiple image slices. Lung bases: Patchy airspace consolidation involving the inferior lingular segments and left lower, new from the previous examination. Additional subsegmental changes at the right lung base are chronic atelectasis or fibrosis. Heart: Cardiomegaly. Implanted cardiac monitoring device. ABDOMEN: Liver: The liver is unremarkable, accounting for lack of IV contrast and respiratory artifact. Gallbladder and bile ducts: The gallbladder is not clearly delineated. Similar ectasia of the common bile duct. No significant intrahepatic biliary dilatation. Pancreas: Unremarkable. No ductal dilation. Spleen: Unremarkable. No splenomegaly. Adrenals: Unremarkable. No mass. Kidneys and ureters: The right kidney remains atrophic and somewhat dysmorphic in appearance. Stable nonobstructive nephrolithiasis noted internally. The normal caliber left kidney demonstrates nonobstructive nephrolithiasis, subcentimeter in size involving inferior pole calyces. No hydronephrosis. No ureteral stones. Stomach and bowel: Postsurgical changes involving the stomach consistent with prior gastric bypass. The duodenum appears to be ligated proximally. There is prominent fluid dilation of the duodenum and a proximal jejunal loop with a relative transition to decompressed small bowel loops anteriorly. There are also nonspecific fluid and gas distended, but not dilated small bowel loops in the central pelvis. Moderate stool burden. PELVIS: Appendix: No findings to suggest acute appendicitis. Bladder: Unremarkable. No stones. Reproductive: Status post hysterectomy. ABDOMEN and PELVIS: Intraperitoneal space: Unremarkable. No free air. No significant fluid collection. Bones/joints: No acute osseous abnormality. No alteration from the prior examination. Soft tissues: Chronic dysmorphic appearance of the anterior abdominal wall with laxity and marked lobulation. The number of the bowel loops lie immediately deep to the skin surface, as noted on the previous examination. Vasculature: Unremarkable. No abdominal aortic aneurysm. Lymph nodes: Unremarkable. No enlarged lymph nodes. IMPRESSION: 1. Patchy airspace consolidation involving the inferior lingular segments and left lower, new from the previous examination. The primary consideration is left basilar pneumonia. 2. Postsurgical changes involving the stomach consistent with prior gastric bypass. The duodenum appears to be ligated proximally. There is prominent fluid dilation of the duodenum and a proximal jejunal loop with a relative transition to decompressed small bowel loops anteriorly. There are also nonspecific fluid and gas distended, but not dilated small bowel loops in the central pelvis. Findings suggest jejunitis/enteritis. A proximal small bowel obstruction is difficult to exclude. Recommend serial radiographic evaluation or dedicated small bowel follow-through, as clinically indicated. Electronically signed by: Alfredo Aguilar MD 06/19/24 20:44 PM Chest CTA 06/19/24 22:55 Exam(s): CTA CHEST IV Amt: 118 ML OPTIRAY 320 EXAM: CT Angiography Chest With Intravenous Contrast CLINICAL HISTORY: Evaluate for potential PE. TECHNIQUE: Axial computed tomographic angiography images of the chest with intravenous contrast. CTDI is 30.26 mGy and DLP is 684.84 mGy-cm. Automated exposure control was utilized for the study. A dose lowering technique was utilized adhering to the principles of ALARA. MIP reconstructed images were created and reviewed. COMPARISON: CT chest without contrast dated 11/30/2023 FINDINGS: Limitations: There is respiratory artifact, which degrades image quality throughout the examination. Pulmonary arteries: Accounting for limitations with respiratory artifact, there is no definite evidence for pulmonary embolism. Aorta: The thoracic aorta is unremarkable. No dissection or significant aneurysm. Lungs: Dense consolidation involving the left lower lobe with an area of diminished enhancement within the dense consolidation posteriorly, measuring approximately 3 x 4.8 cm. Additional areas of consolidation noted involving the inferior left lingular segments and right medial basal segment. Patchy opacities also noted in the anterior right upper lobe. There is some layering fluid noted involving the posterior aspect of the proximal right and left bronchi with complete opacification of the subsegmental branches serving the consolidation involving the left lingular segments and left lower lobe. Pleural space: The right pleural effusion is noted with some mild lobulation superiorly. The pleural effusion is small in volume, measuring up to 1.5 cm. No pneumothorax. Heart: Cardiomegaly. Implanted cardiac monitoring device is noted in the right ventricle. Mediastinum: Abnormal mucosal thickening suggested involving the mid esophagus. No esophageal obstruction or pneumomediastinum. Bones/joints: No acute fracture. No dislocation. Soft tissues: Unremarkable. Lymph nodes: Unremarkable. No enlarged lymph nodes. Tubes, lines and devices: A right internal jugular approach portacatheter is noted with the tip in the right atrium. IMPRESSION: 1. Accounting for limitations with respiratory artifact, there is no definite evidence for pulmonary embolism. 2. Dense consolidation involving the left lower lobe with an area of diminished enhancement within the dense consolidation posteriorly, measuring approximately 3 x 4.8 cm. Findings are consistent with pneumonia with suspected internal developing necrotizing process. No cavitation noted. 3. Additional areas of consolidation noted involving the inferior left lingular segments and right medial basal segment. Patchy opacities also noted in the anterior right upper lobe. 4. There is some layering fluid noted involving the posterior aspect of the proximal right and left bronchi with complete opacification of the subsegmental branches serving the consolidation involving the left lingular segments and left lower lobe. This may represent aspiration or endobronchial secretions. 5. Abnormal mucosal thickening suggested involving the mid esophagus. No esophageal obstruction or pneumomediastinum. Findings suggest esophagitis. 6. The right pleural effusion is noted with some mild lobulation superiorly. The pleural effusion is small in volume, measuring up to 1.5 cm. Electronically signed by: Alfredo Aguilar MD 06/20/24 01:13 AM Medications Administered Meropenem 500 mg/ Syringe 10 mls @ 2 mls/min IV Q8H CATE; Protocol Stop: 06/30/24 00:00 Last Admin: 06/20/24 01:38 Dose: 2 mls/min Documented By: CHRIS Discontinued Medications Dexamethasone (Dexamethasone Sod Inj 4 Mg/Ml Vial) 6 mg IV NOW STA Stop: 06/19/24 22:26 Last Admin: 06/19/24 23:14 Dose: 6 mg Documented By: CHRIS Sodium Chloride (Nss) 1,000 mls @ 999 mls/hr IV .Q1H1M CATE Stop: 06/19/24 19:15 Last Infusion: 06/19/24 20:15 Dose: Infused Documented By: Admin: 06/19/24 19:09 Dose: 999 mls/hr Documented By: BRIA Sodium Chloride (Nss) 1,000 mls @ 999 mls/hr IV .Q1H1M ONE Stop: 06/19/24 20:42 Last Infusion: 06/19/24 21:25 Dose: Infused Documented By: Admin: 06/19/24 20:14 Dose: 999 mls/hr Documented By: BRIA Piperacillin Sod/Tazobactam Sod (Zosyn) 4.5 gm in 100 mls @ 200 mls/hr IV NOW ONE Stop: 06/19/24 21:15 Last Infusion: 06/19/24 22:22 Dose: Infused Documented By: Admin: 06/19/24 21:21 Dose: 200 mls/hr Documented By: BRIA Azithromycin 500 mg/ Dextrose 255 mls @ 127.5 mls/hr IV NOW STA Stop: 06/19/24 22:46 Last Infusion: 06/20/24 01:27 Dose: Infused Documented By: Admin: 06/19/24 22:22 Dose: 127.5 mls/hr Documented By: BRIA Sodium Chloride (Nss) 250 mls @ 999 mls/hr IV .Q16M ONE Stop: 06/19/24 21:04 Last Infusion: 06/19/24 22:22 Dose: Infused Documented By: Admin: 06/19/24 21:22 Dose: 999 mls/hr Documented By: BRIA Potassium Chloride (K Hermilo / Wtr) 10 meq in 100 mls @ 100 mls/hr IV Q1H CATE Stop: 06/20/24 01:14 Last Admin: 06/20/24 01:38 Dose: 100 mls/hr Documented By: Infusion: 06/20/24 01:38 Dose: Infused Documented By: Admin: 06/20/24 00:40 Dose: 100 mls/hr Documented By: Infusion: 06/20/24 00:32 Dose: Infused Documented By: Infusion: 06/20/24 00:14 Dose: Infused Documented By: Admin: 06/19/24 23:14 Dose: 100 mls/hr Documented By: Infusion: 06/19/24 23:07 Dose: Infused Documented By: Admin: 06/19/24 21:46 Dose: 100 mls/hr Documented By: BRIA Vancomycin HCl 1,500 mg/ (Sodium Chloride) 530 mls @ 200 mls/hr IV NOW STA Stop: 06/20/24 02:20 Last Admin: 06/20/24 00:44 Dose: 200 mls/hr Documented By: CHRIS Sodium Chloride (Nss) 500 mls @ 500 mls/hr IV .Q1H CATE Stop: 06/20/24 01:59 Last Admin: 06/20/24 01:32 Dose: Not Given Documented By: CHRIS Ioversol (Optiray 320 125ml) 125 ml IV ONCE ONE Stop: 06/19/24 23:50 Last Admin: 06/19/24 23:49 Dose: 118 ml Documented By: FOX ECG Additional Comments: Normal sinus rhythm Left axis deviation Left ventricular hypertrophywith repolarization abnormality(R in aVL, [place] product) Abnormal ECG When compared with ECG [id number] 18:24, T wave inversion now evident inInferior leads Nonspecific T wave abnormality, worse inAnterior leads QT has shortened Coding Level of Care Code 98383 CRITICAL CARE EA ADD 30M Diagnoses Septic shock A41.9; R65.21 COVID-19 U07.1 Encephalopathy G93.40 Pneumonia J18.9 Laterality: left Lung location: lower lobe of lung Pneumonia type: due to unspecified organism Diarrhea R19.7 ILD (interstitial lung disease) J84.9 Hypothyroidism E03.9 Chronic kidney disease N18.9 Chronic diastolic (congestive) heart failure I50.32 Pancreatic insufficiency K86.89 (4) Pneumonia Laterality: left Lung location: lower lobe of lung Pneumonia type: due to unspecified organism Qualified Code(s): J18.9 - Pneumonia, unspecified organism
[2024-06-20] MEDS ORDERED: ONDANSETRON 4 MG OD TAB PO PRN (03:13)
[2024-06-20] MEDS ORDERED: HEPARIN 100 UNIT/ML 5ML FLUSH FLUSH PRN (03:28)
[2024-06-20] MEDS: REMDESIVIR 200 MG in SODIUM CHLORIDE 0.9% 210 ML IV STA (03:31)
[2024-06-20] MEDS: ACETAMINOPHEN 1,000 MG/100 ML VIAL IV STA (03:31)
[2024-06-20 03:40] LABS: Base Excess VBG -6.2 mEq/L; HCO3 VBG 20 mmol/L; Oxygen Saturation VBG 89.6 %; PCO2 VBG 39 mmHg (38-50); PO2 VBG 59 mmHg; pH VBG 7.31 (7.36-7.41)
[2024-06-20 03:46] LABS: Hematocrit (blood only) 37.1 % (37.0-47.0); Mean Corpuscular Hemoglobin 30.2 pg (25.0-34.0); Mean Corpuscular Hgb Conc 32.3 g/dL (32.0-36.0); Mean Corpuscular Volume 93.2 fL (80.0-100.0); Mean Platelet Volume 9.5 fL (9.4-12.4); Platelet Count 113 K/uL (130-400); RDW Coefficient of Variation 14.4 % (11.5-14.5); RDW Standard Deviation 48.9 fL (36.4-46.3); Red Blood Count 3.98 M/uL (4.20-5.40); White Blood Count 3.55 K/ul (4.8-10.8)
[2024-06-20] MEDS: ALBUT/IPRATROP 3MG/0.5MG NEB 3 ML VIAL INH SCH (03:55)
[2024-06-20 04:01] LABS: iSTAT Allen Test Pass; iSTAT Art Bld Gas pCO2 Correct 38 mmHg (35-46); iSTAT Art Bld Gas pH Corrected 7.309 (7.35-7.45); iSTAT Arterial Blood Gas HCO3 18 meg/L (19-24); iSTAT Arterial Blood Gas pCO2 34 mmHg (35-46); iSTAT Arterial Blood Gas pH 7.34 (7.35-7.45); iSTAT Arterial Blood Gas pO2 96 mmHg (80-95); iSTAT Arterial Blood Gas pO2 C 111; iSTAT Carbon Dioxide 19 mmol/L (24-31); iSTAT FiO2 50 %; iSTAT Hematocrit 37 % (37-47); iSTAT Hemoglobin 12.6 g/dl (12.0-16.0); iSTAT Potassium 2.6 mmol/L (3.3-5.0); iSTAT Site R Brachial; iSTAT Sodium 143 mmol/L (135-144)
[2024-06-20 04:01] LABS: iSTAT Allen Test Pass; iSTAT Art Bld Gas pCO2 Correct 42 mmHg (35-46); iSTAT Art Bld Gas pH Corrected 7.293 (7.35-7.45); iSTAT Arterial Blood Gas HCO3 20 meg/L (19-24); iSTAT Arterial Blood Gas pCO2 38 mmHg (35-46); iSTAT Arterial Blood Gas pH 7.32 (7.35-7.45); iSTAT Arterial Blood Gas pO2 50 mmHg (80-95); iSTAT Arterial Blood Gas pO2 C 58; iSTAT Carbon Dioxide 21 mmol/L (24-31); iSTAT FiO2 50 %; iSTAT Hematocrit 35 % (37-47); iSTAT Hemoglobin 11.9 g/dl (12.0-16.0); iSTAT Potassium 2.7 mmol/L (3.3-5.0); iSTAT Site R Radial; iSTAT Sodium 143 mmol/L (135-144)
[2024-06-20] MEDS: NSS + 20MEQ KCL 20 MEQ/1,000 ML BAG IV SCH ×2 (04:01→04:02)
[2024-06-20 04:05] LABS: Albumin Level 2.9 gm/dl (3.4-5.0); BUN Creatinine Ratio 28.9 (10-20); Bilirubin Direct 0.1 mg/dl (0-0.2); Bilirubin,Total 0.4 mg/dl (0.2-1.0); Calcium 7.3 mg/dl (8.6-10.3); Est GFR (African American) 74.6 ml/min; Est GFR (Non-African American) 64.3 ml/min; Magnesium 1.9 mg/dl (1.7-2.4); Potassium 2.9 mmol/L (3.5-5.1); Total Protein 4.7 gm/dl (6.0-8.3)
[2024-06-20] MEDS ORDERED: STAT IV Infusion **Titration per Protocol STA (04:08)
[2024-06-20 04:09] LABS: Dohle Bodies 1+; Immature Granulocytes # (auto) 0.07 K/uL (0.01-0.20); Lymphocytes # (auto) 0.32 K/uL (1.20-3.40); Monocytes # (auto) 0.34 K/uL (0.11-0.59); Monocytes % (auto) 9.6 %; Neutrophils # (auto) 2.82 K/uL (1.40-6.50); Neutrophils % (auto) 79.4 %; Toxic Vacuolation 1+
[2024-06-20] MEDS: NOREPINEPHRINE/D5W 4 MG/250 ML PLCT IV SCH (04:14)
[2024-06-20 04:15] LABS: Troponin I High Sensitivity 405.5 pg/ml (0-14)
[2024-06-20 04:33] LABS: Thyroid Stimulating Hormone 0.74 uIu/ml (0.300-4.500)
--- NOTE | 2024-06-20 05:29 | Procedure Note ---
Procedure Note Date of Service June 20, 2024 Procedure: Arterial Line Placement Proceduralist: Salvador WESTFALL ([facility]) Attending: Dr. RIVERA Indication: Monitoring on Pressors Anesthesia: xLidocaine 1% Emergent Consent was implied as patient was with increasing vasopressor requirements in setting of septic shock and she is a full code- no family immediately available. Benefits outweigh risks at this current time A time-out was completed verifying correct patient, procedure, site, and posi tioning. Allens test was performed to ensure adequate perfusion. Patients RIGHT wrist was prepped and draped in the usual sterile fashion. Ultrasound guidance was used to hydrotel operator the vessel prior to procedure and after sterile prep and drape was also used to aid needle placement. A 20g Arrow arterial line was introduced into the RIGHT RADIAL artery x1 attempt. Brisk flash of blood was noted, the wire was advanced without resistance, the Catheter was threaded, and the needle was removed with appropriate blood return. Pressure tubing was attached noting good arterial waveform. The line was secured with suture and covered with sterile tegaderm dressing. The patient tolerated the procedure well. No immediate complications were noted Blood Loss: Minimal Complications: None immediately noted Artery Identified: YES Line confirmed in Artery with ultrasound: YES Complications: NONE Patient tolerated procedure: WELL Images not saved as this was urgent procedure. [facility] [place] Procedure Codes (Charges) Tubes, Drains, and Vasc Access Procedure 1: Tubes, Drains, and Vasc Access: [id number] Arterial Cath/Cannulation Sampling/Monitoring/Transfusion Coding CPT Codes Tubes, Drains, and Vasc Access - Tubes, Drains, and Vasc Access: [id number] Arterial Cath/Cannulation Sampling/Monitoring/Transfusion ([id number]) Additional Codes Date of Service (PG.SURGERY)
[2024-06-20] MEDS: PLASMA-LYTE A 250 ML IV ONE (05:53)
[2024-06-20] MEDS: LEVOTHYROXINE SODIUM 88 MCG TABLET PO SCH (05:54)
[2024-06-20] MEDS: ICU ELECTROLYTE REPLACEMENT PROTOCOL SCH (05:57)
[2024-06-20] MEDS ORDERED: SODIUM PHOSPHATE 3 MMOL/1 ML INFUSION IV STA (05:59)
[2024-06-20] MEDS: SODIUM PHOSPHATE 15 MMOL in SODIUM CHLORIDE 0.9% 250 ML IV ONE (06:28)
[2024-06-20] MEDS: MAGNESIUM SULFATE / D5W 1 GM/100 ML BAG IV SCH (06:28)
[2024-06-20] MEDS: POTASSIUM CHLORIDE / WTR 20 MEQ/100 ML PLCT IV SCH (06:37)
[2024-06-20] MEDS: ROSUVASTATIN CALCIUM 10 MG TAB PO SCH (08:55)
[2024-06-20] MEDS: CALCITRIOL 0.25 MCG CAPSULE PO SCH (08:55)
[2024-06-20] MEDS: ZINC SULFATE 220 MG CAPSULE PO SCH (08:55)
[2024-06-20] MEDS: DULoxetine HCL 30 MG CAP PO SCH (08:55)
[2024-06-20] MEDS: lamoTRIgine 25 MG TAB PO SCH ×2 (08:55→19:42)
[2024-06-20] MEDS: dexAMETHasone 6 MG in SYRINGE 0 ML IV SCH (08:59)
[2024-06-20] MEDS: PANTOprazole 40 MG in SYRINGE 0 ML IV SCH (08:59)
[2024-06-20] MEDS: ENOXAPARIN INJ 40 MG/0.4 ML SYR SQ SCH (09:00)
[2024-06-20] MEDS ORDERED: PREGABALIN 50 MG CAP PO SCH (09:00)
[2024-06-20] MEDS ORDERED: FLUTICASONE/VILANTEROL 200/25MCG 14 PUFFS/INHALER INH SCH (09:00)
[2024-06-20] MEDS ORDERED: PANTOprazole 40 MG TAB PO SCH (09:00)
[2024-06-20] MEDS ORDERED: CALCIUM 600MG + VIT D 400 IU TAB PO SCH (09:00)
--- NOTE | 2024-06-20 10:35 | Pharmacy Report ---
Pharmacy PK ABX Note - Date of Service June 20, 2024 - Assessment and Plan Assessment * 73 year old F receiving VANCOMYCIN + MEROPENEM + AZITHROMYCIN for treatment of septic shock likely from pulmonary +/- urinary source. * NOTE: Vancomycin has been ordered for 48 hrs only * Pertinent microbiologic data includes: Positive MRSA Nasal Swab, resp BioFire + COVID19, BLCX and UCx pending, UA did not show pyuria * Day # 2 of antimicrobial therapy. * Patient remains on norepi for pressor support, not intubated at this time, JAVI improving Plan Vancomycin * Loading dose: 1500 mg IV x 1 given overnight * Maintenance dose: 1250 mg IV every 24 hours (to begin at 1600 today to more quickly achieve therapeutic targets) * Regimen is predicted to achieve target AUC/JOSE MIGUEL of 400-600 mg/L.hr * Will check drug level if therapy to continue beyond 48 hours Pharmacy will continue to follow and will adjust dose/frequency as necessary. Thank you. Pharmacy has transitioned to AUC monitoring for vancomycin. AUC/JOSE MIGUEL is the pref erred PK/PD target and is associated with decreased risk of nephrotoxicity compared to traditional trough targets.
--- NOTE | 2024-06-20 10:58 | Surgery Consultation ---
Date of Consultation June 20, 2024 Assessment & Plan (1) Septic shock: (2) COVID-19: (3) Abdominal pain: (4) Nausea: Plan 73F with COVID PNA hypoxic respiratory failure and septic shock with mild GI symptoms and distended bowel loops by imaging. No surgical etiology for her abdominal pain or mildly distended bowel loops. Patient currently without nausea. Her abdomen is soft without distention, chronic protuberant-type belly very soft. I think the patient's abdominal pain is due to enteritis secondary to viral infection. Appearance of possible SBO due to subsequent mild ileus. Consider inserting NGT if patient begins to c/o nausea or has vomiting. No surgical inter vention. My only other input is in regards to the significant left colonic stool burden evident on CT from yesterday would be to consider suppositories as what is being reported as diarrhea could be seepage of liquified stool around fecal impaction. I have spoken to the hospitalist about my observations. Will follow peripherally for now. History of Present Illness Reason for Consultation: CT evidence for possible SBO Attending Physician: Souleymane Rodarte MD History of Present Illness The patient is a 73-year-old female with history of poor IV access, mediport present since 2017, sinus node dysfunction status post pacemaker, interstitial lung disease, osteoporosis, chronic kidney disease, chronic diastolic heart failure, significant peptic ulcer disease a/w inability to eat requiring a feeding tube subsequently with Bilroth II [place] en Y followed by ability to remove feeding tube and resume oral intake as of 2012. presented the emergency department with altered mental status and lethargy. She presented to the ED yesterday reportedly having health issues since yesterday am initially refusing EMS with neighbors until later in the day when her sister was able to performed a well check at which time the patient was very lethargic appearing and seemed to have some increased work of breathing. EMS was contacted and the patient was brought to the ER. Reportedly listless in the ED c/o generalized fatigue and headache. Was noted with hypoxia, viral panel reveal COVID 19 (+). Admission to medicine was initiated until the patient's respiratory and HD status further declined with initial treatments, she was then transferred to the ICU. The patient is in the ICU some of her issues include severe sepsis secondary to COVID PNA, evolving hypoxic respiratory failure, evidence for demand ischemia with elevated troponin and inferior lead ST changes on EKG. A CT A/P without contrast was obtained yesterday reading fluid dilation of the duodenum and proximal jejunal loop with a relative transition to decompressed small bowel loops anteriorly. Nonspecific fluid and gas distended small bowel loops without distention in the central pelvis. The patient has been reportedly having non- bloody diarrhea. General surgery has been consulted for potential SBO. Allergies Allergy/AdvReac Type Severity Reaction Status Date / Time bethanechol Allergy Intermediate RASH, Verified 05/25/24 13:17 "FEELS FUNNY" Cephalosporins Allergy Intermediate RASH, Verified 05/25/24 13:17 DIARRHEA levofloxacin Allergy Intermediate RASH,TURNED Verified 05/25/24 13:17 RED Sulfa (Sulfonamide Allergy Intermediate Generalized Verified 05/25/24 13:17 Antibiotics) Rash ertapenem Allergy Mild RASH Verified 05/25/24 13:17 atropine Allergy Unknown ON [facility] MED Verified 05/25/24 13:17 LIST clindamycin Allergy Unknown Unknown Verified 05/25/24 13:17 dipyridamole Allergy Unknown PERSANTINE--ON Verified 05/25/24 13:17 [facility] MED LIST droperidol Allergy Unknown Unknown Verified 05/25/24 13:17 meperidine [From Demerol] Allergy Unknown ? ALLERGY Verified 05/25/24 13:17 ON [facility] MED LIST promethazine Allergy Unknown UNKNOWN Verified 05/25/24 13:17 tobramycin Allergy Unknown UNKNOWN Verified 05/25/24 13:17 aspirin AdvReac Severe BLEEDING Verified 05/25/24 13:17 doxycycline AdvReac Severe severe Verified 05/25/24 13:17 Diarrhea, nausea metolazone AdvReac Severe ELECTROLYTE Verified 05/25/24 13:17 ISSUES--HYPOKALEMIA bupropion AdvReac Intermediate NERVOUS Verified 05/25/24 13:17 REACTION cephalexin AdvReac Intermediate GI SYMPTOMS Verified 05/25/24 13:17 morphine AdvReac Intermediate NERVOUS Verified 05/25/24 13:17 REACTION TO IT nitrofurantoin AdvReac Intermediate Vomiting Verified 05/25/24 13:17 [From Macrobid] prochlorperazine AdvReac Intermediate NERVOUS Verified 05/25/24 13:17 REACTION tedizolid AdvReac Intermediate GI SYMPTOMS Verified 05/25/24 13:17 venlafaxine [From Effexor] AdvReac Intermediate NERVOUS Verified 05/25/24 13:17 REACTION lamotrigine AdvReac Unknown tremors Verified 05/25/24 13:17 Home Medications Medication Instructions Recorded Confirmed Type albuterol sulfate 90 mcg/actuation 2 puff inhalation Q6H PRN 06/19/24 06/19/24 History aerosol inhaler Shortness Of Breath Or Wheezing calcitriol 0.5 mcg capsule 0.5 mcg PO DAILY 06/19/24 06/19/24 History calcium carbonate 600 mg-vitamin 2 tab PO TID 06/19/24 06/19/24 History D3 10 mcg (400 unit) tablet cetirizine 10 mg tablet 10 mg PO DAILY PRN Allergic 06/19/24 06/19/24 History Symptoms denosumab 60 mg/mL subcutaneous 60 mg subcut UD 06/19/24 06/19/24 History syringe (Prolia) duloxetine 30 mg capsule,delayed 30 mg PO DAILY 06/19/24 06/19/24 History release famotidine 20 mg tablet 20 mg PO HS 06/19/24 06/19/24 History fluticasone furoate 200 1 inh inhalation DAILY 06/19/24 06/19/24 History mcg-vilanterol 25 mcg/dose inhalation powder (Breo Ellipta) ipratropium 0.5 mg-albuterol 3 mg 3 ml inhalation Q4H PRN Shortness 06/19/24 06/19/24 History (2.5 mg base)/3 mL nebulization Of Breath Or Wheezing soln lamotrigine 25 mg tablet 25 mg PO UD 06/19/24 06/19/24 History levothyroxine 88 mcg tablet 88 mcg PO DAILY 06/19/24 06/19/24 History tfsith-ntpfiyae-msgmhyj 4 cap PO TID 06/19/24 06/19/24 History 24,000-76,000-120,000 unit capsule,delayed rel (Creon) metoclopramide HCl 5 mg tablet 5 mg PO TID PRN Nausea And Vomiting 06/19/24 06/19/24 History montelukast 10 mg tablet 10 mg PO HS 06/19/24 06/19/24 History nitroglycerin 0.4 mg sublingual 0.4 mg sublingual UD PRN Chest Pain 06/19/24 06/19/24 History tablet omeprazole 20 mg capsule,delayed 20 mg PO BID 06/19/24 06/19/24 History release ondansetron 4 mg disintegrating 4 mg PO TID PRN Nausea And Vomiting 06/19/24 06/19/24 History tablet oxycodone 5 mg tablet 5 mg PO TID PRN Severe Pain (Scale 06/19/24 06/19/24 History Score 7-10) pregabalin 25 mg capsule 50 mg PO TID 06/19/24 06/19/24 History ropinirole 0.5 mg tablet 0.5 mg PO HS 06/19/24 06/19/24 History rosuvastatin 10 mg tablet 10 mg PO DAILY 06/19/24 06/19/24 History valacyclovir 500 mg tablet 500 mg PO Q2D 06/19/24 06/19/24 History zinc 25 mg tablet 25 mg PO DAILY 06/19/24 06/19/24 History Patient History Medical History History of small bowel obstruction Sinus node dysfunction Bronchiectasis ILD (interstitial lung disease) Secondary hyperparathyroidism Pancreatic insufficiency Neuropathy Pernicious anemia History of sepsis 2019 [facility] Reactive hypoglycemia HULL (dyspnea on exertion) GERD (gastroesophageal reflux disease) Chronic sinusitis Cystitis Chronic kidney disease stage 3, follows with Dr Roberts Chronic diastolic (congestive) heart failure follows with [facility] cardiology Sleep apnea complex sleep apnea, BIPAP (non-compliant) COPD (chronic obstructive pulmonary disease) Asthma Difficulty swallowing "trouble swallowing pills" History of DVT (deep vein thrombosis) remote hx, unknown etiology, Junctional bradycardia Pulmonary hypertension mild per 07/[address] report Atherosclerosis of both lower extremities Lumbar transverse process fracture Pt reports lower back detioriating - can't lie flat/sleep on a chair Pulmonary nodule seen on imaging study Wrist injury Scar tissue surrounding remote wrist ORIF several years ago resulting in intermittent inflammation per pt Bilateral nephrolithiasis current on CT scan H/O concussion Remote hx "a long time ago" Incisional hernia Abdominal (from multiple surgeries/feeding tube) Chronic urinary tract infection recent hospitalization for this at [facility] DC'ed 02/14/2024> pt reports no symptoms Chronic venous insufficiency Port-A-Cath in place right side due to poor vascular access Urinary leakage PUD (peptic ulcer disease) Had feeding tube for 28 years (has been removed for 11 years) Lumbar stenosis Short bowel syndrome Surgical History History of cystoscopy multiple H/O shoulder surgery RT arthroscopy 05/28/2021: LMA#4 atraumatic x 1 + PNB. Anesthesia postop progress note: "Pt denies SOB at this time. Block is functioning well. Vital signs stable and appropriate. Oxygenating well considering block placement and her comorbidities. Plan to discharge home with IS." S/P right rotator cuff repair S/P ureteral stent placement Status post laser lithotripsy of ureteral calculus History of prior ablation treatment Right LE in January 2020 and left LE 04/18/20 History of partial gastrectomy History of sinus surgery History of tonsillectomy and adenoidectomy History of total abdominal hysterectomy and bilateral salpingo-oophorectomy History of cholecystectomy History of appendectomy History of open reduction and internal fixation (ORIF) procedure left wrist + manipulation (01/2018) and I&D (10/2019) History of joint replacement Rt thumb History of knee replacement procedure of right knee History of esophagogastroduodenoscopy (EGD) with dilatation History of colonoscopy History of gastrointestinal surgery multiple History of cardiac cath 08/2019 ([facility])- essentially normal coronary arteries angiographically, no stents Family History Mother Family history of diabetes mellitus Sister Family history of diabetes mellitus Family history of breast cancer Father Esophageal cancer Other Family history non-contributory No family history of adverse response to anesthesia Social History Smoking Status: Never smoker Second Hand Exposure: No; Do You Dip or Chew Tobacco: No; Hx Alcohol Use: Yes Alcohol type: beer Hx Substance Use: No Preferred Language: [place] Communication Ability: Effective Visual Impairment: No Limitations Ground Worker Required: No Beliefs That Will Affect Care: None marital status: Single Current Living Situation: Personal Care Facility Current Living Situation Comment: [facility] How many Children do You have: 0 Feels Safe at Home: Yes Safety Concerns: Feels Safe At This Time Assistive Devices: Denture - Upper, Denture - Lower, Glasses and Walker Review of Systems Review of Systems: minimally able to obtain due to patient's respiratory status and is on BiPap she was able to communicate with me that she does have some off and on abdominal pain along with a small amount of TTP she is unable to give any extensive ROS Physical Exam Constitutional: + ill appearing; + not healthy appearing , + uncomfortable and not diaphoretic Respiratory: + respiratory distress and + cough; + ab normal respiratory effort and + not able to speak in complete sentence Cardiovascular: Rate/Rhythm: + tachycardic Extremities: no calf tenderness and no pedal edema palpable DP pulses b/l LE Gastrointestinal (Abdomen): abdomen is soft with minimal diffuse TTP. There is no significant distention, patient has a large opening incisional hernia evident in a broad loose surgical scar of low integrity and thin skin overlying bowel. The area is very soft without specifically distended or tense bowel loops. Without peritonitis. There are no bowel sounds present Patient deferred rectal examination due to respiratory status. Results & Data Vital Signs (Past 12 Hours) Vital Signs Temp Pulse Pulse Resp BP BP Pulse Ox 06/20/24 09:03 91 H 41 H 06/20/24 08:20 06/20/24 07:35 68 20 98 06/20/24 06:48 36.2 C L 72 13 98 06/20/24 06:40 102/63 06/20/24 06:36 36.3 C L 71 15 97 06/20/24 06:30 36.3 C L 70 20 98 06/20/24 06:25 97/63 L 06/20/24 06:25 97/63 L 06/20/24 06:15 36.4 C L 72 21 97 06/20/24 06:10 98/55 L 06/20/24 06:10 98/55 L 06/20/24 06:10 98/55 L 06/20/24 06:10 98/55 L 06/20/24 06:09 36.4 C L 73 15 95 06/20/24 06:00 36.7 C 73 21 98 06/20/24 05:55 95/58 L 06/20/24 05:55 95/58 L 06/20/24 05:51 36.8 C 74 17 97 06/20/24 05:48 36.8 C 75 17 97 06/20/24 05:40 95/59 L 06/20/24 05:40 95/59 L 06/20/24 05:40 95/59 L 06/20/24 05:36 36.9 C 75 20 97 06/20/24 05:30 37.1 C 128 H 25 H 97 06/20/24 05:25 94/64 L 06/20/24 05:24 36.9 C 76 19 99 06/20/24 05:15 37.1 C 77 21 98 06/20/24 04:51 111/66 06/20/24 04:45 38.1 C H 73 18 97 06/20/24 04:41 106/58 L 06/20/24 04:39 38.3 C H 76 21 97 06/20/24 04:38 93/53 L 06/20/24 04:37 91/51 L 06/20/24 04:37 91/51 L 06/20/24 04:35 86/49 L 06/20/24 04:21 38.8 C H 83 22 96 06/20/24 04:15 39.1 C H 85 22 96 06/20/24 04:15 78/47 L 06/20/24 04:15 78/47 L 06/20/24 04:15 78/47 L 06/20/24 04:05 83/49 L 06/20/24 04:05 83/49 L 06/20/24 04:00 39.3 C H 84 23 97 06/20/24 04:00 79/43 L 06/20/24 03:56 84 17 95 06/20/24 03:45 39.4 C H 85 23 95 06/20/24 03:24 39.2 C H 87 3 L 95 06/20/24 03:10 06/20/24 03:00 88 36 H 95 06/20/24 03:00 39.2 C H 87 28 H 101/61 96 06/20/24 03:00 39.4 C H 06/20/24 02:24 92 H 31 H 99 06/20/24 02:15 99/58 L 06/20/24 02:03 93 H 34 H 98 06/20/24 02:00 95/56 L 06/20/24 02:00 95/56 L 06/20/24 02:00 95/56 L 06/20/24 01:54 97 H 16 99 06/20/24 01:45 90/54 L 06/20/24 01:45 90/54 L 06/20/24 01:36 87/56 L 06/20/24 01:33 92 H 33 H 98 06/20/24 01:30 92 H 32 H 98 06/20/24 01:14 06/20/24 01:14 93 H 44 H 82/50 L 97 06/20/24 00:30 95 H 38 H 97 06/20/24 00:00 94 H 28 H 87/56 L 97 06/19/24 23:00 97 H 44 H 98/75 L 93 Pulse Ox O2 Del Method O2 Del Method O2 Flow Rate FiO2 06/20/24 09:03 50 06/20/24 08:20 BiPAP 0.5 06/20/24 07:35 50 06/20/24 06:48 06/20/24 06:40 06/20/24 06:36 06/20/24 06:30 06/20/24 06:25 06/20/24 06:25 06/20/24 06:15 06/20/24 06:10 06/20/24 06:10 06/20/24 06:10 06/20/24 06:10 06/20/24 06:09 06/20/24 06:00 06/20/24 05:55 06/20/24 05:55 06/20/24 05:51 06/20/24 05:48 06/20/24 05:40 06/20/24 05:40 06/20/24 05:40 06/20/24 05:36 06/20/24 05:30 06/20/24 05:25 06/20/24 05:24 06/20/24 05:15 06/20/24 04:51 06/20/24 04:45 06/20/24 04:41 06/20/24 04:39 06/20/24 04:38 06/20/24 04:37 06/20/24 04:37 06/20/24 04:35 06/20/24 04:21 06/20/24 04:15 06/20/24 04:15 06/20/24 04:15 06/20/24 04:15 06/20/24 04:05 06/20/24 04:05 06/20/24 04:00 06/20/24 04:00 06/20/24 03:56 BiPAP 50 06/20/24 03:45 06/20/24 03:24 06/20/24 03:10 BiPAP 50 06/20/24 03:00 60 06/20/24 03:00 BiPAP 06/20/24 03:00 06/20/24 02:24 06/20/24 02:15 06/20/24 02:03 06/20/24 02:00 06/20/24 02:00 06/20/24 02:00 06/20/24 01:54 06/20/24 01:45 06/20/24 01:45 06/20/24 01:36 06/20/24 01:33 06/20/24 01:30 06/20/24 01:14 97 BiPAP 06/20/24 01:14 Room Air 06/20/24 00:30 60 06/20/24 00:00 BiPAP 06/19/24 23:00 Nasal Cannula 4 Laboratory Results Potassium 2.9 Troponin 333 Diagnostic [place], [place] [phone] CT Scan Report Patient: JOSHUA ZAVALA Admit Date: 06/19/24 MR#: [id number] Address1: [facility] [address] Acct ID:[id number] Address2: [address] Date: 1950 [facility] Zip: [place] [address] Age: 73 Location: ED Sex: F Room/Bed: Att Phy: Diagnosis: AMS, HYPOXIA Tabatha Phy: PCP,NO Service Date: 06/19/24 [facility] Phy: Interpreting Phy: Alfredo Aguilar MDAdmit Phy: Ordering Phy: Tano Elizabeth DO cc: ~ Exam(s): CT ABDOMEN + PELVIS Without Contrast EXAM: CT Abdomen and Pelvis Without Intravenous Contrast CLINICAL HISTORY: N/V. TECHNIQUE: Axial computed tomography images of the abdomen and pelvis without intravenous contrast. CTDI is 63.53 mGy and DLP is 1249 mGy-cm. Automated exposure control was utilized for the study. A dose lowering technique was utilized adhering to the principles of ALARA. COMPARISON: CT abdomen and pelvis with contrast dated 02/10/2024 FINDINGS: Limitations: There is respiratory artifact, which degrades image quality on multiple image slices. Lung bases: Patchy airspace consolidation involving the inferior lingular segments and left lower, new from the previous examination. Additional subsegmental changes at the right lung base are chronic atelectasis or fibrosis. Heart: Cardiomegaly. Implanted cardiac monitoring device. ABDOMEN: Liver: The liver is unremarkable, accounting for lack of IV contrast and respiratory artifact. Gallbladder and bile ducts: The gallbladder is not clearly delineated. Similar ectasia of the common bile duct. No significant intrahepatic biliary dilatation. Pancreas: Unremarkable. No ductal dilation. Spleen: Unremarkable. No splenomegaly. Adrenals: Unremarkable. No mass. Kidneys and ureters: The right kidney remains atrophic and somewhat dysmorphic in appearance. Stable nonobstructive nephrolithiasis noted internally. The normal caliber left kidney demonstrates nonobstructive nephrolithiasis, subcentimeter in size involving inferior pole calyces. No hydronephrosis. No ureteral stones. Stomach and bowel: Postsurgical changes involving the stomach consistent with prior gastric bypass. The duodenum appears to be ligated proximally. There is prominent fluid dilation of the duodenum and a proximal jejunal loop with a relative transition to decompressed small bowel loops anteriorly. There are also nonspecific fluid and gas distended, but not dilated small bowel loops in the central pelvis. Moderate stool burden. PELVIS: Appendix: No findings to suggest acute appendicitis. Bladder: Unremarkable. No stones. Reproductive: Status post hysterectomy. ABDOMEN and PELVIS: Intraperitoneal space: Unremarkable. No free air. No significant fluid collection. Bones/joints: No acute osseous abnormality. No alteration from the prior examination. Soft tissues: Chronic dysmorphic appearance of the anterior abdominal wall with laxity and marked lobulation. The number of the bowel loops lie immediately deep to the skin surface, as noted on the previous examination. Vasculature: Unremarkable. No abdominal aortic aneurysm. Lymph nodes: Unremarkable. No enlarged lymph nodes. IMPRESSION: 1. Patchy airspace consolidation involving the inferior lingular segments and left lower, new from the previous examination. The primary consideration is left basilar pneumonia. 2. Postsurgical changes involving the stomach consistent with prior gastric bypass. The duodenum appears to be ligated proximally. There is prominent fluid dilation of the duodenum and a proximal jejunal loop with a relative transition to decompressed small bowel loops anteriorly. There are also nonspecific fluid and gas distended, but not dilated small bowel loops in the central pelvis. Findings suggest jejunitis/enteritis. A proximal small bowel obstruction is difficult to exclude. Recommend serial radiographic evaluation or dedicated small bowel follow-through, as clinically indicated. Electronically signed by: Alfredo Aguilar MD 06/19/24 20:44 PM PG Care Time/CCT Total # of Minutes Spent Total Time Spent with Patient: Total time spent is greater than 50% in coordination of care (as documented) at patient's floor/unit and/or counseling patient: Coding Level of Care Code 27094 INT INP/OBS CARE 3/75MIN Diagnoses Septic shock A41.9; R65.21 COVID-19 U07.1 Generalized abdominal pain R10.84 Abdominal location: generalized Nausea R11.0 (3) Abdominal pain Abdominal location: generalized Qualified Code(s): R10.84 - Generalized abdominal pain
--- NOTE | 2024-06-20 13:32 | Hospitalist Progress Note ---
Date of Service June 20, 2024 Assessment & Plan (1) Lethargy: Plan: 73-year-old female with past medical history significant for chronic pancreatitis, hyperlipidemia, hypothyroidism, secondary hyperparathyroidism of renal origin, history of hypoglycemia, COPD, complex sleep apnea syndrome, chronic diastolic CHF, CKD stage III, sick sinus syndrome status post pacemaker, mitral valve disorder, chronic venous insufficiency, history of renal disease, pulmonary hypertension, history of occlusion of left saphenous vein, GERD, status post partial gastrectomy ,postsurgical malabsorption, obstructive uropathy, osteoarthritis, restless leg syndrome, osteoporosis, dysgeusia, history of C. difficile, depression, KRYSTAL, history of kidney stones, gait disturbance ambulates with walker, lives alone was brought in because of confusion and lethargy and found to have COVID, UTI and pneumonia. Metabolic encephalopathy Severe sepsis/Septic shock Acute hypoxic respiratory failure COVID 19 Infection Multifocal Pneumonia Acute UTI Patient's presents with confusion and lethargy. CT headno acute finding CTA chest shows dense consolidation involving the left lower lobe; consistent with pneumonia with suspected interval developing necrotizing process. No cavitation noted. Also has areas of consolidation involving the right lung. Bronchi on right and left side with complete opacification of segmental branches; likely represent aspiration or endobronchial secretions. CT abdomen and pelvis findings suggestive of jejunitis/enteritis. Continue hemodynamic support with vasopressors Currently on BiPAP; management of airway as per cafe helper On meropenem, vancomycin, azithromycin and dexamethasone COVID COVID precautions on Dexamethasone UTI History of ESBL and Pseudomonas Placed on meropenem Is allergic to Invanz with rash Will closely monitor Hypokalemia Repleted Follow labs Elevated troponin Demand Ischemia High sensitive troponin 134 and admission peaked to 405.5 and down trended Echocardiogram pending esophagitis on ct scan iv ppi, continue Chronic diastolic CHF Getting fluids Monitor for volume overload History of COPD/asthma/ILD/pulmonary hypertension Continue home inhalers Nebs as needed Obstructive sleep apnea Noncompliant with BiPAP Sister says she recently had another sleep study and per sister not using oxygen while sleeping. on bipap Hypothyroidism On Synthyroid, continue Sick sinus syndrome Status post pacemaker History of mitral valve disorder Chronic venous insufficiency Follow echo GERD Famotidine and PPI History of C. difficile Recently in March had course of p.o. vancomycin Monitor for any diarrhea History of gastric bypass Continue home medications History of chronic pancreatitis Pancreatic insufficiency Malabsorption Continue home meds when able to take History of mood/anxiety disorder Continue home meds when able to take Chronic pain Neuropathy On Pregabalin Pain oxycodone as needed Will start once patient is more stable History of chronic headaches Possible tension headaches per neurology On Lamictal and Cymbalta Seems recently started on Ubrelvy History of MRSA Positive MRSA screen CKD stage III Creatinine 1 Will follow labs History of hypotension Requiring midodrine during admission in December 2023 History of chronic nephrolithiasis Secondary hyperparathyroidism On Calcitrol and calcium supplementation Endocrinology follow-up Ambulate dysfunction Ambulates with a walker DVT prophylaxis Lovenox Disposition Continues to be hospitalized in ICU due to severe sepsis, acute hypoxic respiratory failure requiring BiPAP. Prognosis guarded Time spent evaluating patient, direct bedside care, chart review, placing orders, interpretation of diagnostic studies, as well as other required patient management activities is 50 minutes Please note the above document was generated using voice recognition software. It may contain grammatical, syntax or spelling errors. Any formal questions or concerns about the content, text or information contained within the body of this dictation should be directly addressed to the provider for clarification Admission and Anticipated Discharge Date Admission Date: June 19, 2024 Subjective Patient lethargic and opens her eyes to voice. She is on BiPAP with setting of 10/ 5. She is also on Levophed for hemodynamic support Review of Systems Review of Systems: Unobtainable due to reduced consciousness Physical Exam Physical Exam: General- Lethargic, Opens her eyes to voice Head- atraumatic Eyes- PERRL. Neck- no JVD, Lungs- Decreased breath sounds at bilateral bases Heart- regular rate and rhythm; no murmur, no gallop. Abdomen- normal bowel sounds, soft, multiple surgical scars seen no distension Extremities- no pretibial edema, small superficial wound seen on left alberto Neuro- Drowsy; not responding to verbal or mild painful stimuli Results & Data Results & Data Vital Signs (Past 12 Hours) Vital Signs Temp Pulse Pulse Resp BP BP Pulse Ox 06/20/24 11:10 116/67 06/20/24 11:10 116/67 06/20/24 11:10 116/67 06/20/24 11:04 68 27 H 97 06/20/24 11:02 35.5 C L 70 21 94 06/20/24 10:55 115/66 06/20/24 10:45 35.6 C L 67 20 82 L 06/20/24 10:40 105/65 06/20/24 10:40 105/65 06/20/24 10:35 35.5 C L 68 23 85 L 06/20/24 10:12 35.4 C L 66 17 06/20/24 10:10 99/64 L 06/20/24 10:10 99/64 L 06/20/24 09:55 107/66 06/20/24 09:55 107/66 06/20/24 09:54 35.2 C L 71 19 76 L 06/20/24 09:30 35.1 C L 73 19 74 L 06/20/24 09:26 100/62 06/20/24 09:26 100/62 06/20/24 09:11 35.0 C L 91 H 19 06/20/24 09:03 91 H 41 H 06/20/24 08:20 06/20/24 07:35 68 20 98 06/20/24 06:48 36.2 C L 72 13 98 06/20/24 06:40 102/63 06/20/24 06:36 36.3 C L 71 15 97 06/20/24 06:30 36.3 C L 70 20 98 06/20/24 06:25 97/63 L 06/20/24 06:25 97/63 L 06/20/24 06:15 36.4 C L 72 21 97 06/20/24 06:10 98/55 L 06/20/24 06:10 98/55 L 06/20/24 06:10 98/55 L 06/20/24 06:10 98/55 L 06/20/24 06:09 36.4 C L 73 15 95 06/20/24 06:00 36.7 C 73 21 98 06/20/24 05:55 95/58 L 06/20/24 05:55 95/58 L 06/20/24 05:51 36.8 C 74 17 97 06/20/24 05:48 36.8 C 75 17 97 06/20/24 05:40 95/59 L 06/20/24 05:40 95/59 L 06/20/24 05:40 95/59 L 06/20/24 05:36 36.9 C 75 20 97 06/20/24 05:30 37.1 C 128 H 25 H 97 06/20/24 05:25 94/64 L 06/20/24 05:24 36.9 C 76 19 99 06/20/24 05:15 37.1 C 77 21 98 06/20/24 04:51 111/66 06/20/24 04:45 38.1 C H 73 18 97 06/20/24 04:41 106/58 L 06/20/24 04:39 38.3 C H 76 21 97 06/20/24 04:38 93/53 L 06/20/24 04:37 91/51 L 06/20/24 04:37 91/51 L 06/20/24 04:35 86/49 L 06/20/24 04:21 38.8 C H 83 22 96 06/20/24 04:15 39.1 C H 85 22 96 06/20/24 04:15 78/47 L 06/20/24 04:15 78/47 L 06/20/24 04:15 78/47 L 06/20/24 04:05 83/49 L 06/20/24 04:05 83/49 L 06/20/24 04:00 39.3 C H 84 23 97 06/20/24 04:00 79/43 L 06/20/24 03:56 84 17 95 06/20/24 03:45 39.4 C H 85 23 95 06/20/24 03:24 39.2 C H 87 3 L 95 06/20/24 03:10 06/20/24 03:00 88 36 H 95 06/20/24 03:00 39.2 C H 87 28 H 101/61 96 06/20/24 03:00 39.4 C H 06/20/24 02:24 92 H 31 H 99 06/20/24 02:15 99/58 L 06/20/24 02:03 93 H 34 H 98 06/20/24 02:00 95/56 L 06/20/24 02:00 95/56 L 06/20/24 02:00 95/56 L 06/20/24 01:54 97 H 16 99 06/20/24 01:45 90/54 L 06/20/24 01:45 90/54 L 06/20/24 01:36 87/56 L 06/20/24 01:33 92 H 33 H 98 06/20/24 01:30 92 H 32 H 98 O2 Del Method FiO2 06/20/24 11:10 06/20/24 11:10 06/20/24 11:10 06/20/24 11:04 40 06/20/24 11:02 06/20/24 10:55 06/20/24 10:45 06/20/24 10:40 06/20/24 10:40 06/20/24 10:35 06/20/24 10:12 06/20/24 10:10 06/20/24 10:10 06/20/24 09:55 06/20/24 09:55 06/20/24 09:54 06/20/24 09:30 06/20/24 09:26 06/20/24 09:26 06/20/24 09:11 06/20/24 09:03 50 06/20/24 08:20 BiPAP 0.5 06/20/24 07:35 50 06/20/24 06:48 06/20/24 06:40 06/20/24 06:36 06/20/24 06:30 06/20/24 06:25 06/20/24 06:25 06/20/24 06:15 06/20/24 06:10 06/20/24 06:10 06/20/24 06:10 06/20/24 06:10 06/20/24 06:09 06/20/24 06:00 06/20/24 05:55 06/20/24 05:55 06/20/24 05:51 06/20/24 05:48 06/20/24 05:40 06/20/24 05:40 06/20/24 05:40 06/20/24 05:36 06/20/24 05:30 06/20/24 05:25 06/20/24 05:24 06/20/24 05:15 06/20/24 04:51 06/20/24 04:45 06/20/24 04:41 06/20/24 04:39 06/20/24 04:38 06/20/24 04:37 06/20/24 04:37 06/20/24 04:35 06/20/24 04:21 06/20/24 04:15 06/20/24 04:15 06/20/24 04:15 06/20/24 04:15 06/20/24 04:05 06/20/24 04:05 06/20/24 04:00 06/20/24 04:00 06/20/24 03:56 BiPAP 50 06/20/24 03:45 06/20/24 03:24 06/20/24 03:10 BiPAP 50 06/20/24 03:00 60 06/20/24 03:00 BiPAP 06/20/24 03:00 06/20/24 02:24 06/20/24 02:15 06/20/24 02:03 06/20/24 02:00 06/20/24 02:00 06/20/24 02:00 06/20/24 01:54 06/20/24 01:45 06/20/24 01:45 06/20/24 01:36 06/20/24 01:33 06/20/24 01:30
[2024-06-20] MEDS: VANCOMYCIN HCL 1,250 MG in SODIUM CHLORIDE 0.9% 250 ML IV SCH (15:00)
[2024-06-20 17:41] LABS: Creatinine Clr Calc Pharmacy 64.2 ml/min; Est GFR (Non-African American) 82.9 ml/min; Potassium 4.4 mmol/L (3.5-5.1)
[2024-06-20 17:52] LABS: Troponin I High Sensitivity 270.2 pg/ml (0-14)
[2024-06-20] MEDS ORDERED: VANCOMYCIN HCL 1,250 MG in SODIUM CHLORIDE 0.9% 250 ML IV SCH (18:00)
[2024-06-20] MEDS ORDERED: ICU ELECTROLYTE REPLACEMENT PROTOCOL SCH (18:00)
[2024-06-20] MEDS: PANCREAZE (LIPASE 16,800U) CAP PO SCH (19:17)
[2024-06-20] MEDS: bisacodyL 10 MG SUPP PR PRN (19:23)
[2024-06-20] MEDS: FAMOTIDINE 20 MG TAB PO SCH (19:42)
[2024-06-20] MEDS: AZITHROMYCIN 250 MG in DEXTROSE 5% 250 ML IV SCH (19:48)
[2024-06-20] MEDS ORDERED: REMDESIVIR 100 MG in SODIUM CHLORIDE 0.9% 230 ML IV SCH (20:00)
[2024-06-20] MEDS ORDERED: rOPINIRole HCL 0.25 MG TABLET PO SCH (21:00)
[2024-06-20] MEDS ORDERED: MONTELUKAST SODIUM 10 MG TABLET PO SCH (21:00)
[2024-06-20] MEDS ORDERED: AZITHROMYCIN 500 MG in DEXTROSE 5% 250 ML IV SCH (22:00)
[2024-06-20] MEDS: ACETAMINOPHEN 1,000 MG/100 ML VIAL IV PRN (22:11)
[2024-06-20] MEDS: ONDANSETRON INJ 2 MG/ML 2 ML VIAL ONE (23:29)
[2024-06-21 04:34] LABS: BUN Creatinine Ratio 34.8 (10-20); Creatinine Clr Calc Pharmacy 69.9 ml/min; Est GFR (African American) 102.3 ml/min; Est GFR (Non-African American) 88.3 ml/min; Magnesium 2.2 mg/dl (1.7-2.4); Phosphorus 2.7 mg/dl (2.5-4.9); Potassium 4.4 mmol/L (3.5-5.1)
--- NOTE | 2024-06-21 06:26 | Electrocardiogram Report ---
Test Reason : Blood Pressure : */* mmHG Vent. Rate : 93 BPM Atrial Rate : 93 BPM P-R Int : 170 ms QRS Dur : 90 ms QT Int : 310 ms P-R-T Axes : 41 -31 -17 degrees QTcB Int : 385 ms Normal sinus rhythm Left axis deviation Left ventricular hypertrophy with repolarization abnormality ( R in aVL , Starr product ) Abnormal ECG When compared with ECG of 04-Feb-2024 18:24, T wave inversion now evident in Inferior leads Nonspecific T wave abnormality, worse in Anterior leads Confirmed by Srikanth Wagner ([id number] on 06/21/2024 6:25:46 AM Referred By: REFERRED SELF Confirmed By: Srikanth Wagner
[2024-06-21] MEDS: VANCOMYCIN HCL 1,250 MG in SODIUM CHLORIDE 0.9% 250 ML IV SCH (09:01)
[2024-06-21] MEDS: valACYclovir HCL 500 MG TABLET PO SCH (09:25)
--- NOTE | 2024-06-21 09:32 | XRay Report ---
KUB HISTORY: Acute generalized abdominal pain eval for worsening ? SBO from CT scan 06/19 COMPARISON: CT 06/19/2024 FINDINGS: Surgical clips and anastomotic sutures project over the abdomen and pelvis. Left basilar op acity is redemonstrated along with cardiomegaly. Air-filled loops of large and small bowel are again noted projected over the central abdomen with mild gaseous distention. A catheter projects over the r ectum. Moderately stool-filled rectosigmoid. Renal shadows are partially obscured by bowel gas. Bila teral nephrolithiasis redemonstrated. No definite ureteral calculi identified. No pneumoperitoneum or pneumatosis. No fracture. IMPRESSION: 1. Air-filled loops of large and small bowel within the central abdomen are similar to the prior CT w hich may represent ileus versus partial obstruction. Continued follow-up recommended. 2. Bilateral nephrolithiasis. ACT 112: Negative or not required by law. The above report was generated using voice recognition software. It may contain grammatical, syntax o r spelling errors. Electronically signed by: Soham Kirby M.D. 06/21/2024 9:29 AM
--- NOTE | 2024-06-21 09:35 | Electrocardiogram Report ---
Test Reason : Blood Pressure : */* mmHG Vent. Rate : 93 BPM Atrial Rate : 93 BPM P-R Int : 160 ms QRS Dur : 86 ms QT Int : 356 ms P-R-T Axes : 47 -31 15 degrees QTcB Int : 442 ms Normal sinus rhythm Left axis deviation Left ventricular hypertrophy Abnormal ECG When compared with ECG of 19-Jun-2024 18:34, Nonspecific ST and T wave abnormality no longer present Confirmed by Kevon Dye ([id number] on 06/21/2024 9:34:36 AM Referred By: REFERRED SELF Confirmed By: Kevon Dye
[2024-06-21] MEDS: DOCUSATE SODIUM 100 MG CAP PO ONE (10:37)
--- NOTE | 2024-06-21 11:31 | Critical Care Progress Note ---
Date of Service June 21, 2024 Assessment & Plan (1) Septic shock: (2) COVID-19: (3) Encephalopathy: (4) Pneumonia: (5) Diarrhea: (6) ILD (interstitial lung disease): (7) Hypothyroidism: (8) Chronic kidney disease: (9) Chronic diastolic (congestive) heart failure: (10) Pancreatic insufficiency: Plan Impression: 73 YOF presents with worsening encephalopathy, weakness in setting of pneumonia and COVID 19. 24-hour events: Patient shown significant clinical improvement. Has been weaned off noninvasive positive pressure ventilation. Her sensorium is cleared. She is now neurologically intact. Recommendations: Neuro - Metabolic Encephalopathy -now resolved. Patient is on multiple medications for chronic pain issues including Lyrica and oxycodone in the outpatient setting. Will judiciously restart her narcotics and see how she does but I suspect the majority of her pain is related to pleural irritation from her underlying pneumonic process. Cardiac - septic shock, now resolved. Troponin leak secondary to supply/demand mismatch. May benefit from diuresis at some point but will see how she responds Respiratory -hypoxemic respiratory failure secondary to COVID superimposed on restrictive lung disease and interstitial lung disease. She is better today. Continue to wean oxygen as tolerated defending oxygen saturations of about 90%. Will continue Decadron 6 mg daily until oxygen requirement decreases down to baseline. See below for antibiotic coverage. GI -obstipation on CT scan now with bowels moving. Likely exacerbated by concomitant use of narcotics. Continue stool softeners and Dulcolax as well as suppository as needed. Will restart her pancreatic enzyme replacement when taking p.o. Questionable prior history of C. difficile with evidence of enteritis on CT scan. Recheck for C. difficile. On antibiotics already RENAL/LYTES -kidney function at baseline. ICU electrolyte replacement protocol initiated. Mild hypernatremia. Will adjust fluids for small amount of free water and continue to trend. -Cam catheter for now ENDO - glycemic protocol per ICU orders. Continue thyroid replacement HEME - No acute needs ID -COVID-19 pneumonitis superimposed on probable bacterial pneumonia. Currently day number 2 Zosyn vancomycin azithromycin. Complete 3 days of azithromycin and 7 days Zosyn vancomycin given MRSA positive nares. LINES/IV ACCESS - PIV, RT SCL Mediport Continue use of these lines DVT PROPHYLAXIS - SCDs, Lovenox 40 sub q q24 DISPO: Clinically improved. Will observe today but if she continues to trend in the right direction can likely downgrade later this afternoon or tomorrow. Admission and Anticipated Discharge Date Admission Date: June 19, 2024 Subjective Patient seen and examined. EMR reviewed. Discussed with overnight critical care ESTEVAN as well as with bedside critical care nurse and on multidisciplinary rounds. Patient is clinically improved this morning. Her mentation is much better. Her respiratory status has significantly improved. She has been weaned off of noninvasive positive pressure ventilation. She is complaining of some abdominal pain which is chronic in nature as well as some chest discomfort. She has had frequent bowel movements. Review of Systems Review of Systems: All systems reviewed & are unremarkable except as noted in Subjective Physical Exam Constitutional: WD/WN, vitals as above Neck: trachea midline, no thyromegaly Respiratory: + cough and + tachypneic; no respiratory distress and no labored breathing Auscultation: + crackles and + rhonchi; no wheezes Cardiovascular: RRR, no murmur, no edema Gastrointestinal (Abdomen): normal bowel sounds, soft, nontender, no hepatosplenomegaly Large ventral hernia. Easily reducible. No tenderness to palpation Musculoskeletal: Extremities: extremities normal to inspection Skin: no rashes, warm and dry Neurologic: Nonfocal exam Lymphatic: no cervical lymphadenopathy Results & Data Results & Data Vital Signs (Past 12 Hours) Vital Signs Temp Pulse Pulse Resp BP Pulse Ox O2 Del Method 06/21/24 10:48 36.8 C 107 H 22 129/79 93 High Flow Nasal Cannula 06/21/24 10:45 36.7 C 108 H 24 133/83 94 High Flow Nasal Cannula 06/21/24 09:54 36.9 C 108 H 20 131/74 97 High Flow Nasal Cannula 06/21/24 09:03 36.8 C 98 H 19 98 High Flow Nasal Cannula 06/21/24 08:51 36.8 C 92 H 22 110/72 94 High Flow Nasal Cannula 06/21/24 08:27 95 H 20 96 High Flow Nasal Cannula 06/21/24 08:06 36.7 C 96 H 32 H 98 BiPAP 06/21/24 07:15 BiPAP 06/21/24 07:09 36.7 C 95 H 29 H 135/80 97 BiPAP 06/21/24 04:45 36.5 C 96 H 28 H 94 06/21/24 04:30 36.5 C 92 H 26 H 95 06/21/24 04:29 98 H 24 99 06/21/24 04:27 36.5 C 95 H 30 H 97 06/21/24 04:18 36.5 C 93 H 32 H 97 06/21/24 03:45 36.5 C 81 20 94 06/21/24 03:30 36.4 C L 98 H 28 H 80 L 06/21/24 03:15 36.4 C L 87 21 96 06/21/24 03:10 98/60 L 06/21/24 03:06 36.4 C L 95 H 31 H 95 06/21/24 03:00 36.5 C 89 28 H 93 06/21/24 02:48 36.4 C L 88 24 97 06/21/24 02:21 36.4 C L 94 H 23 93 06/21/24 02:06 36.4 C L 95 H 16 95 06/21/24 01:54 36.5 C 95 H 18 95 06/21/24 01:42 36.5 C 87 22 100 06/21/24 01:30 36.5 C 78 21 100 06/21/24 01:12 36.6 C 82 22 100 06/21/24 01:10 99/60 L 06/21/24 01:10 99/60 L 06/21/24 01:09 36.6 C 83 23 100 06/21/24 01:03 36.6 C 91 H 24 94 06/21/24 01:00 06/21/24 00:42 36.7 C 79 13 100 06/21/24 00:33 36.8 C 78 20 100 06/21/24 00:27 36.8 C 77 20 98 06/21/24 00:12 36.9 C 77 22 100 06/20/24 23:42 37.0 C 92 H 14 98 O2 Del Method O2 Flow Rate FiO2 06/21/24 10:48 40 06/21/24 10:45 40 06/21/24 09:54 40 06/21/24 09:03 60 40 06/21/24 08:51 60 40 06/21/24 08:27 60 40 06/21/24 08:06 40 06/21/24 07:15 40 06/21/24 07:09 40 06/21/24 04:45 06/21/24 04:30 06/21/24 04:29 40 06/21/24 04:27 06/21/24 04:18 06/21/24 03:45 06/21/24 03:30 06/21/24 03:15 06/21/24 03:10 06/21/24 03:06 06/21/24 03:00 06/21/24 02:48 06/21/24 02:21 06/21/24 02:06 06/21/24 01:54 06/21/24 01:42 06/21/24 01:30 06/21/24 01:12 06/21/24 01:10 06/21/24 01:10 06/21/24 01:09 06/21/24 01:03 06/21/24 01:00 BiPAP 06/21/24 00:42 06/21/24 00:33 06/21/24 00:27 06/21/24 00:12 06/20/24 23:42 Critical Care Results & Data Vital Signs (Past 12 Hours) Vital Signs Temp Pulse Pulse Resp BP Pulse Ox O2 Del Method 06/21/24 10:48 36.8 C 107 H 22 129/79 93 High Flow Nasal Cannula 06/21/24 10:45 36.7 C 108 H 24 133/83 94 High Flow Nasal Cannula 06/21/24 09:54 36.9 C 108 H 20 131/74 97 High Flow Nasal Cannula 06/21/24 09:03 36.8 C 98 H 19 98 High Flow Nasal Cannula 06/21/24 08:51 36.8 C 92 H 22 110/72 94 High Flow Nasal Cannula 06/21/24 08:27 95 H 20 96 High Flow Nasal Cannula 06/21/24 08:06 36.7 C 96 H 32 H 98 BiPAP 06/21/24 07:15 BiPAP 06/21/24 07:09 36.7 C 95 H 29 H 135/80 97 BiPAP 06/21/24 04:45 36.5 C 96 H 28 H 94 06/21/24 04:30 36.5 C 92 H 26 H 95 06/21/24 04:29 98 H 24 99 06/21/24 04:27 36.5 C 95 H 30 H 97 06/21/24 04:18 36.5 C 93 H 32 H 97 06/21/24 03:45 36.5 C 81 20 94 06/21/24 03:30 36.4 C L 98 H 28 H 80 L 06/21/24 03:15 36.4 C L 87 21 96 06/21/24 03:10 98/60 L 06/21/24 03:06 36.4 C L 95 H 31 H 95 06/21/24 03:00 36.5 C 89 28 H 93 06/21/24 02:48 36.4 C L 88 24 97 06/21/24 02:21 36.4 C L 94 H 23 93 06/21/24 02:06 36.4 C L 95 H 16 95 06/21/24 01:54 36.5 C 95 H 18 95 06/21/24 01:42 36.5 C 87 22 100 06/21/24 01:30 36.5 C 78 21 100 06/21/24 01:12 36.6 C 82 22 100 06/21/24 01:10 99/60 L 06/21/24 01:10 99/60 L 06/21/24 01:09 36.6 C 83 23 100 06/21/24 01:03 36.6 C 91 H 24 94 06/21/24 01:00 06/21/24 00:42 36.7 C 79 13 100 06/21/24 00:33 36.8 C 78 20 100 06/21/24 00:27 36.8 C 77 20 98 06/21/24 00:12 36.9 C 77 22 100 06/20/24 23:42 37.0 C 92 H 14 98 O2 Del Method O2 Flow Rate FiO2 06/21/24 10:48 40 06/21/24 10:45 40 06/21/24 09:54 40 06/21/24 09:03 60 40 06/21/24 08:51 60 40 06/21/24 08:27 60 40 06/21/24 08:06 40 06/21/24 07:15 40 06/21/24 07:09 40 06/21/24 04:45 06/21/24 04:30 06/21/24 04:29 40 06/21/24 04:27 06/21/24 04:18 06/21/24 03:45 06/21/24 03:30 06/21/24 03:15 06/21/24 03:10 06/21/24 03:06 06/21/24 03:00 06/21/24 02:48 06/21/24 02:21 06/21/24 02:06 06/21/24 01:54 06/21/24 01:42 06/21/24 01:30 06/21/24 01:12 06/21/24 01:10 06/21/24 01:10 06/21/24 01:09 06/21/24 01:03 06/21/24 01:00 BiPAP 06/21/24 00:42 06/21/24 00:33 06/21/24 00:27 06/21/24 00:12 06/20/24 23:42 Lab & Micro Results (Past 24 Hours) No Data to Display Na 149 mmol/L (136-145) H 06/21/24 K 4.4 mmol/L (3.5-5.1) 06/21/24 Cl 122 mmol/L (98-107) H 06/21/24 CO2 20 mmol/L (21-32) L 06/21/24 Anion Gap 7 (3-11) 06/21/24 BUN 23 mg/dl (6-23) 06/21/24 Creatinine 0.66 mg/dl (0.6-1.2) 06/21/24 Estimated GFR ( Amer) 102.3 ml/min 06/21/24 Estimated GFR (Non-Af Amer) 88.3 ml/min 06/21/24 BUN/Creatinine Ratio 34.8 (10-20) H 06/21/24 Glu 96 mg/dl (70-99(Fasting)) 06/21/24 Ca 7.0 mg/dl (8.6-10.3) L 06/21/24 Phosphorus Level 2.7 mg/dl (2.5-4.9) 06/21/24 AST 148 U/L (13-39) H 06/21/24 ALT 54 U/L (7-52) H 06/21/24 Mg 2.2 mg/dl (1.7-2.4) 06/21/24 03:46 Calcium Level 7.0 mg/dl (8.6-10.3) L 06/21/24 03:46 Microbiology 06/19/24 18:57 Aerobic Blood Culture - Preliminary Blood No growth in Aerobic bottle after 24 hours. Anaerobic Blood Culture - Preliminary No growth in Anaerobic bottle after 24 hours. 06/19/24 20:04 Urine Culture - Final Urine,Clean Catch Three types of organisms present, all high counts. Repeat collection recommended. No further identifications or sensitivities to follow. Diagnostic Findings (Past 24 Hours) KUB X-Ray 06/21/24 06:30 KUB HISTORY: Acute generalized abdominal pain eval for worsening ? SBO from CT scan 06/19 COMPARISON: CT 06/19/2024 FINDINGS: Surgical clips and anastomotic sutures project over the abdomen and pelvis. Left basilar opacity is redemonstrated along with cardiomegaly. Air- filled loops of large and small bowel are again noted projected over the central abdomen with mild gaseous distention. A catheter projects over the rectum. Moderately stool-filled rectosigmoid. Renal shadows are partially obscured by bowel gas. Bilateral nephrolithiasis redemonstrated. No definite ureteral calculi identified. No pneumoperitoneum or pneumatosis. No fracture. IMPRESSION: 1. Air-filled loops of large and small bowel within the central abdomen are similar to the prior CT which may represent ileus versus partial obstruction. Continued follow-up recommended. 2. Bilateral nephrolithiasis. ACT 112: Negative or not required by law. The above report was generated using voice recognition software. It may contain grammatical, syntax or spelling errors. Electronically signed by: Soham Kirby M.D. 06/21/2024 9:29 AM I & O Totals 24 Hours 06/20/24 06/21/24 06/22/24 06:59 06:59 06:59 Intake Total 4367.316 / 4367.316 4657.800 / 4657.800 375 / 375 Output Total 650 / 650 2476 / 2476 345 / 345 Balance 3717.316 / 3717.316 2181.800 / 2181.800 30 / Cumulative 06/19/24 17:30 thru 06/21/24 11:25 Intake Total 9400.116 Output Total 3471 Balance 5929.116 RT Ventilator Mngmt (Last Documented) Ventilator Ordered Settings Respiratory Rate 22 06/21/24 10:48 Fraction of Inspired Oxygen 40 06/21/24 10:48 Ventilator - PT Measurements Respiratory Rate 22 Coding Level of Care Code 35416 SUB INP/OBS CARE 3/50MIN Diagnoses Septic shock A41.9; R65.21 COVID-19 U07.1 Encephalopathy G93.40 Pneumonia J18.9 Laterality: left Lung location: lower lobe of lung Pneumonia type: due to unspecified organism Diarrhea R19.7 ILD (interstitial lung disease) J84.9 Hypothyroidism E03.9 Chronic kidney disease N18.9 Chronic diastolic (congestive) heart failure I50.32 Pancreatic insufficiency K86.89 (4) Pneumonia Laterality: left Lung location: lower lobe of lung Pneumonia type: due to unspecified organism Qualified Code(s): J18.9 - Pneumonia, unspecified organism
--- NOTE | 2024-06-21 12:41 | Pharmacy Report ---
Pharmacy PK ABX Note - Date of Service June 21, 2024 - Assessment and Plan Assessment * 73 year old F receiving VANCOMYCIN + MEROPENEM + AZITHROMYCIN for treatment of septic shock likely from pulmonary +/- urinary source. * Pertinent microbiologic data includes: Positive MRSA Nasal Swab, resp BioFire + COVID19, BLCX and UCx pending, UA did not show pyuria, UCx showed likely contamination * Day # 3 of antimicrobial therapy. * Norepi has been titrated off, JAVI resolved, noted to be improving clinically (from both respiratory and neuro perspective) Plan Vancomycin * Current maintenance dose 1250 mg IV every 24 hours will be changed to 1250mg IV every 18 hours due to improving renal fxn. * New regimen is predicted to achieve target AUC/JOSE MIGUEL of 400-600 mg/L.hr * Will check drug level tomorrow to confirm therapeutic targets achieved Pharmacy will continue to follow and will adjust dose/frequency as necessary. Thank you. Pharmacy has transitioned to AUC monitoring for vancomycin. AUC/JOSE MIGUEL is the preferred PK/PD target and is associated with decreased risk of nephrotoxicity compared to traditional trough targets.
--- NOTE | 2024-06-21 14:32 | Hospitalist Progress Note ---
Date of Service June 21, 2024 Assessment & Plan (1) Lethargy: Plan: 73-year-old female with past medical history significant for chronic pancreatitis, hyperlipidemia, hypothyroidism, secondary hyperparathyroidism of renal origin, history of hypoglycemia, COPD, complex sleep apnea syndrome, chronic diastolic CHF, CKD stage III, sick sinus syndrome status post pacemaker, mitral valve disorder, chronic venous insufficiency, history of renal disease, pulmonary hypertension, history of occlusion of left saphenous vein, GERD, status post partial gastrectomy ,postsurgical malabsorption, obstructive uropathy, osteoarthritis, restless leg syndrome, osteoporosis, dysgeusia, history of C. difficile, depression, KRYSTAL, history of kidney stones, gait disturbance ambulates with walker, lives alone was brought in because of confusion and lethargy and found to have COVID, UTI and pneumonia. Metabolic encephalopathy- resolved Severe sepsis/Septic shock Acute hypoxic respiratory failure COVID 19 Infection Multifocal Pneumonia Acute UTI Patient's presents with confusion and lethargy. CT headno acute finding CTA chest shows dense consolidation involving the left lower lobe; consistent with pneumonia with suspected interval developing necrotizing process. No cavitation noted. Also has areas of consolidation involving the right lung. Bronchi on right and left side with complete opacification of segmental branches; likely represent aspiration or endobronchial secretions. MRSA nares positive CT abdomen and pelvis findings suggestive of jejunitis/enteritis. Blood cultureno growth till date Urine culture3 types of organism; all high counts Continue on meropenem, vancomycin, azithromycin and dexamethasone. plan for 7 day course Continue hemodynamic support with vasopressors Currently on BiPAP; management of airway as per exterior interior specialist COVID COVID precautions on Dexamethasone wean oxygen as tolerated Hypokalemia Repleted Follow labs Elevated troponin Demand Ischemia High sensitive troponin 134 and admission peaked to 405.5 and down trended Echocardiogram shows EF of 55-60%. esophagitis on ct scan iv ppi, continue Chronic diastolic CHF Getting fluids Monitor for volume overload History of COPD/asthma/ILD/pulmonary hypertension Continue home inhalers Nebs as needed Obstructive sleep apnea Noncompliant with BiPAP Bipap hs if tolerated Hypothyroidism On Synthyroid, continue Sick sinus syndrome Status post pacemaker GERD Famotidine and PPI History of C. difficile Recently in March had course of p.o. vancomycin Monitor for any diarrhea C.diff negative History of gastric bypass Continue home medications History of chronic pancreatitis Pancreatic insufficiency Malabsorption Continue home meds when able to take History of mood/anxiety disorder Continue home meds when able to take Chronic pain Neuropathy On Pregabalin oxycodone as needed Will start once patient is more stable History of chronic headaches Possible tension headaches per neurology On Lamictal and Cymbalta Seems recently started on Ubrelvy CKD stage III Creatinine 1 Will follow labs History of hypotension Requiring midodrine during admission in December 2023 History of chronic nephrolithiasis Secondary hyperparathyroidism On Calcitrol and calcium supplementation Endocrinology follow-up Ambulate dysfunction Ambulates with a walker DVT prophylaxis Lovenox Disposition Continues to be hospitalized in ICU due to severe sepsis, acute hypoxic respiratory failure requiring HFNC. Time spent evaluating patient, direct bedside care, chart review, placing orders, interpretation of diagnostic studies, as well as other required patient management activities is 50 minutes Please note the above document was generated using voice recognition software. It may contain grammatical, syntax or spelling errors. Any formal questions or concerns about the content, text or information contained within the body of this dictation should be directly addressed to the provider for clarification Admission and Anticipated Discharge Date Admission Date: June 19, 2024 Subjective Patient more awake today; able to answer few questions. She is on high flow nasal cannula She is off vasopressors No significant events overnight Review of Systems Review of Systems: All systems reviewed & are unremarkable except as noted in Subjective Physical Exam Physical Exam: General- Lethargic, Opens her eyes to voice Head- atraumatic Eyes- PERRL. Neck- no JVD, Lungs- Decreased breath sounds at bilateral bases Heart- regular rate and rhythm; no murmur, no gallop. Abdomen- normal bowel sounds, soft, multiple surgical scars seen no distension Extremities- no pretibial edema, small superficial wound seen on left alberto Neuro- Drowsy; not responding to verbal or mild painful stimuli Results & Data Results & Data Vital Signs (Past 12 Hours) Vital Signs Temp Pulse Pulse Resp BP Pulse Ox O2 Del Method 06/21/24 12:51 36.5 C 102 H 33 H 118/69 94 High Flow Nasal Cannula 06/21/24 11:51 36.7 C 105 H 31 H 113/73 92 High Flow Nasal Cannula 06/21/24 11:30 107 H 26 H 92 High Flow Nasal Cannula 06/21/24 10:48 36.8 C 107 H 22 129/79 93 High Flow Nasal Cannula 06/21/24 10:45 36.7 C 108 H 24 133/83 94 High Flow Nasal Cannula 06/21/24 09:54 36.9 C 108 H 20 131/74 97 High Flow Nasal Cannula 06/21/24 09:03 36.8 C 98 H 19 98 High Flow Nasal Cannula 06/21/24 08:51 36.8 C 92 H 22 110/72 94 High Flow Nasal Cannula 06/21/24 08:27 95 H 20 96 High Flow Nasal Cannula 06/21/24 08:06 36.7 C 96 H 32 H 98 BiPAP 06/21/24 07:15 BiPAP 06/21/24 07:09 36.7 C 95 H 29 H 135/80 97 BiPAP 06/21/24 04:45 36.5 C 96 H 28 H 94 06/21/24 04:30 36.5 C 92 H 26 H 95 06/21/24 04:29 98 H 24 99 06/21/24 04:27 36.5 C 95 H 30 H 97 06/21/24 04:18 36.5 C 93 H 32 H 97 06/21/24 03:45 36.5 C 81 20 94 06/21/24 03:30 36.4 C L 98 H 28 H 80 L 06/21/24 03:15 36.4 C L 87 21 96 06/21/24 03:10 98/60 L 06/21/24 03:06 36.4 C L 95 H 31 H 95 06/21/24 03:00 36.5 C 89 28 H 93 06/21/24 02:48 36.4 C L 88 24 97 O2 Flow Rate FiO2 06/21/24 12:51 55 40 06/21/24 11:51 60 40 06/21/24 11:30 55 40 06/21/24 10:48 40 06/21/24 10:45 40 06/21/24 09:54 40 06/21/24 09:03 60 40 06/21/24 08:51 60 40 06/21/24 08:27 60 40 06/21/24 08:06 40 06/21/24 07:15 40 06/21/24 07:09 40 06/21/24 04:45 06/21/24 04:30 06/21/24 04:29 40 06/21/24 04:27 06/21/24 04:18 06/21/24 03:45 06/21/24 03:30 06/21/24 03:15 06/21/24 03:10 06/21/24 03:06 06/21/24 03:00 06/21/24 02:48
[2024-06-21] MEDS ORDERED: AZITHROMYCIN 500 MG in DEXTROSE 5% 250 ML IV SCH (17:00)
[2024-06-21 18:45] LABS: Magnesium 2.2 mg/dl (1.7-2.4); Phosphorus 2.4 mg/dl (2.5-4.9); Potassium 4.3 mmol/L (3.5-5.1)
[2024-06-21] MEDS ORDERED: SODIUM PHOSPHATE 3 MMOL/1 ML INFUSION IV STA (18:53)
[2024-06-21] MEDS ORDERED: SODIUM PHOSPHATE 15 MMOL in SODIUM CHLORIDE 0.9% 250 ML IV ONE (19:15)
[2024-06-21] MEDS: POTASSIUM PHOSPHATE 15 MMOL in SODIUM CHLORIDE 0.9% 250 ML IV ONE (19:25)
[2024-06-21] MEDS: oxyCODONE/ACETAMINOPHEN 5mg/325mg TAB PO PRN (19:32)
[2024-06-21] MEDS: DOCUSATE SODIUM 100 MG CAP PO SCH (21:11)
[2024-06-22 05:11] LABS: BUN Creatinine Ratio 32.5 (10-20); Calcium 7.1 mg/dl (8.6-10.3); Creatinine Clr Calc Pharmacy 60.3 ml/min; Est GFR (African American) 89.4 ml/min; Est GFR (Non-African American) 77.1 ml/min; Magnesium 2.2 mg/dl (1.7-2.4); Phosphorus 3.1 mg/dl (2.5-4.9); Potassium 4.5 mmol/L (3.5-5.1)
[2024-06-22] MEDS ORDERED: traMADol HCL 50 MG TABLET PO PRN (08:24)
--- NOTE | 2024-06-22 08:29 | Critical Care Progress Note ---
Date of Service June 22, 2024 Assessment & Plan (1) Septic shock: (2) COVID-19: (3) Encephalopathy: (4) Pneumonia: (5) Diarrhea: (6) ILD (interstitial lung disease): (7) Hypothyroidism: (8) Chronic kidney disease: (9) Chronic diastolic (congestive) heart failure: (10) Pancreatic insufficiency: Plan Impression: 73 YOF presents with worsening encephalopathy, weakness in setting of pneumonia and COVID 19. 24-hour events: Oxygen has been weaned. She is tolerating a diet. She is having bowel movements. Recommendations: Neuro - Metabolic Encephalopathy -now resolved. Given obtundation associated with oxycodone, will discontinue and try low-dose of tramadol for pain control if needed if it is unresponsive to acetaminophen. Cardiac - septic shock, now resolved. Troponin leak secondary to supply/demand mismatch. Start Lasix today and see how she responds Respiratory -hypoxemic respiratory failure secondary to COVID and probable bacterial pneumonia superimposed on restrictive lung disease and interstitial lung disease. Continues to show slow improvement. Continue to wean oxygen as tolerated defending oxygen saturations of about 90%. May be able to transition to facemask today. Will continue Decadron 6 mg daily until oxygen requirement decreases down to baseline. See below for antibiotic coverage. GI -continue bowel regiment RENAL/LYTES -kidney function at baseline. ICU electrolyte replacement protocol initiated. Mild hypernatremia. Start D5 quarter normal to correct hypernatremia and follow with Lasix -Cam catheter for now ENDO - glycemic protocol per ICU orders. Continue thyroid replacement HEME - No acute needs ID -COVID-19 pneumonitis superimposed on probable bacterial pneumonia. Currently D#3 Zosyn vancomycin azithromycin. Complete 5 days of azithromycin and 7 days Zosyn vancomycin given MRSA positive nares. LINES/IV ACCESS - PIV, RT SCL Mediport Continue use of these lines DVT PROPHYLAXIS - SCDs, Lovenox 40 sub q q24 DISPO: Clinically improved. If able to wean oxygen may be able to transition out of the intensive care unit later today Admission and Anticipated Discharge Date Admission Date: June 19, 2024 Subjective Patient seen and examined. EMR reviewed. Discussed with overnight critical care ESTEVAN as well as with bedside critical care nurse and on multidisciplinary rounds. Patient reports that she is making slow progress. She had some abdominal pain yesterday which resolved with several bowel movements. Her oxygen is being weaned. She continues to cough and has a somewhat rhonchorous respiratory effort. She denies any chest pain or palpitations. No fevers or chills overnight. She did receive 1 Percocet and then had to go on BiPAP for period of time last evening. She does take narcotics at home intermittently Review of Systems Review of Systems: All systems reviewed & are unremarkable except as noted in Subjective Physical Exam Constitutional: WD/WN, vitals as above Neck: trachea midline, no thyromegaly Respiratory: + cough and + tachypneic; no respiratory distress and no labored breathing Auscultation: + crackles and + rhonchi; no wheezes Cardiovascular: RRR, no murmur, no edema Gastrointestinal (Abdomen): normal bowel sounds, soft, nontender, no hepatosplenomegaly Musculoskeletal: Extremities: extremities normal to inspection Skin: no rashes, warm and dry Lymphatic: no cervical lymphadenopathy Results & Data Results & Data Vital Signs (Past 12 Hours) Vital Signs Temp Pulse Pulse Resp BP Pulse Ox O2 Del Method 06/22/24 07:53 92 H 24 92 High Flow Nasal Cannula 06/22/24 04:00 36.7 C 91 H 28 H 94 06/22/24 03:52 109/06/22/24 03:52 109/06/22/24 03:52 109/06/22/24 03:52 109/06/22/24 03:45 36.7 C 88 29 H 95 06/22/24 03:18 36.7 C 91 H 30 H 92 06/22/24 03:16 90 29 H 94 06/22/24 02:52 116/65 06/22/24 02:42 36.7 C 88 28 H 06/22/24 02:30 36.8 C 88 26 H 94 06/22/24 02:21 36.8 C 87 25 H 92 06/22/24 02:03 36.8 C 87 24 94 06/22/24 01:52 103/61 06/22/24 01:48 36.8 C 91 H 28 H 06/22/24 01:45 36.8 C 86 24 93 06/22/24 01:36 36.8 C 87 26 H 92 06/22/24 01:15 36.8 C 90 29 H 06/22/24 01:00 36.8 C 88 28 H 92 06/22/24 00:52 101/63 06/22/24 00:52 101/63 06/22/24 00:51 36.8 C 87 24 93 06/22/24 00:45 36.8 C 92 H 30 H 93 06/22/24 00:36 36.8 C 88 27 H 94 06/22/24 00:15 36.8 C 90 26 H 93 06/22/24 00:03 89 30 H 92 06/22/24 00:00 36.8 C 90 19 93 06/21/24 23:52 106/63 06/21/24 23:52 106/63 06/21/24 23:51 36.8 C 87 27 H 93 06/21/24 23:33 36.8 C 87 24 92 06/21/24 23:21 36.8 C 89 30 H 92 06/21/24 23:06 36.8 C 90 27 H 90 06/21/24 22:52 101/67 06/21/24 22:51 36.8 C 87 24 90 06/21/24 22:45 36.8 C 94 H 29 H 90 06/21/24 22:39 36.8 C 87 23 91 06/21/24 22:03 36.8 C 92 H 25 H 90 06/21/24 21:52 116/64 06/21/24 21:48 36.8 C 93 H 28 H 91 06/21/24 21:30 36.7 C 96 H 31 H 93 06/21/24 21:15 36.8 C 93 H 25 H 90 06/21/24 21:06 36.7 C 95 H 30 H 93 06/21/24 20:57 36.7 C 97 H 31 H 92 06/21/24 20:52 104/63 06/21/24 20:52 104/63 06/21/24 20:52 104/63 06/21/24 20:39 36.7 C 95 H 32 H 91 06/21/24 20:34 98 H 26 H 93 High Flow Nasal Cannula 06/21/24 20:33 36.8 C 98 H 34 H 91 O2 Flow Rate FiO2 06/22/24 07:53 50 35 06/22/24 04:00 06/22/24 03:52 06/22/24 03:52 06/22/24 03:52 06/22/24 03:52 06/22/24 03:45 06/22/24 03:18 06/22/24 03:16 35 06/22/24 02:52 06/22/24 02:42 06/22/24 02:30 06/22/24 02:21 06/22/24 02:03 06/22/24 01:52 06/22/24 01:48 06/22/24 01:45 06/22/24 01:36 06/22/24 01:15 06/22/24 01:00 06/22/24 00:52 06/22/24 00:52 06/22/24 00:51 06/22/24 00:45 06/22/24 00:36 06/22/24 00:15 06/22/24 00:03 35 06/22/24 00:00 06/21/24 23:52 06/21/24 23:52 06/21/24 23:51 06/21/24 23:33 06/21/24 23:21 06/21/24 23:06 06/21/24 22:52 06/21/24 22:51 06/21/24 22:45 06/21/24 22:39 06/21/24 22:03 06/21/24 21:52 06/21/24 21:48 06/21/24 21:30 06/21/24 21:15 06/21/24 21:06 06/21/24 20:57 06/21/24 20:52 06/21/24 20:52 06/21/24 20:52 06/21/24 20:39 06/21/24 20:34 50 35 06/21/24 20:33 Critical Care Results & Data Vital Signs (Past 12 Hours) Vital Signs Temp Pulse Pulse Resp BP Pulse Ox O2 Del Method 06/22/24 07:53 92 H 24 92 High Flow Nasal Cannula 06/22/24 04:00 36.7 C 91 H 28 H 94 06/22/24 03:52 109/67 06/22/24 03:52 109/67 06/22/24 03:52 109/67 06/22/24 03:52 109/67 06/22/24 03:45 36.7 C 88 29 H 95 06/22/24 03:18 36.7 C 91 H 30 H 92 06/22/24 03:16 90 29 H 94 06/22/24 02:52 116/65 06/22/24 02:42 36.7 C 88 28 H 93 06/22/24 02:30 36.8 C 88 26 H 94 06/22/24 02:21 36.8 C 87 25 H 92 06/22/24 02:03 36.8 C 87 24 94 06/22/24 01:52 103/61 06/22/24 01:48 36.8 C 91 H 28 H 93 06/22/24 01:45 36.8 C 86 24 93 06/22/24 01:36 36.8 C 87 26 H 92 06/22/24 01:15 36.8 C 90 29 H 93 06/22/24 01:00 36.8 C 88 28 H 92 06/22/24 00:52 101/63 06/22/24 00:52 101/63 06/22/24 00:51 36.8 C 87 24 93 06/22/24 00:45 36.8 C 92 H 30 H 93 06/22/24 00:36 36.8 C 88 27 H 94 06/22/24 00:15 36.8 C 90 26 H 93 06/22/24 00:03 89 30 H 92 06/22/24 00:00 36.8 C 90 19 93 06/21/24 23:52 106/63 06/21/24 23:52 106/63 06/21/24 23:51 36.8 C 87 27 H 93 06/21/24 23:33 36.8 C 87 24 92 06/21/24 23:21 36.8 C 89 30 H 92 06/21/24 23:06 36.8 C 90 27 H 90 06/21/24 22:52 101/67 06/21/24 22:51 36.8 C 87 24 90 06/21/24 22:45 36.8 C 94 H 29 H 90 06/21/24 22:39 36.8 C 87 23 91 06/21/24 22:03 36.8 C 92 H 25 H 90 06/21/24 21:52 116/64 06/21/24 21:48 36.8 C 93 H 28 H 91 06/21/24 21:30 36.7 C 96 H 31 H 93 06/21/24 21:15 36.8 C 93 H 25 H 90 06/21/24 21:06 36.7 C 95 H 30 H 93 06/21/24 20:57 36.7 C 97 H 31 H 92 06/21/24 20:52 104/63 06/21/24 20:52 104/63 06/21/24 20:52 104/63 06/21/24 20:39 36.7 C 95 H 32 H 91 06/21/24 20:34 98 H 26 H 93 High Flow Nasal Cannula 06/21/24 20:33 36.8 C 98 H 34 H 91 O2 Flow Rate FiO2 06/22/24 07:53 50 35 06/22/24 04:00 06/22/24 03:52 06/22/24 03:52 06/22/24 03:52 06/22/24 03:52 06/22/24 03:45 06/22/24 03:18 06/22/24 03:16 35 06/22/24 02:52 06/22/24 02:42 06/22/24 02:30 06/22/24 02:21 06/22/24 02:03 06/22/24 01:52 06/22/24 01:48 06/22/24 01:45 06/22/24 01:36 06/22/24 01:15 06/22/24 01:00 06/22/24 00:52 06/22/24 00:52 06/22/24 00:51 06/22/24 00:45 06/22/24 00:36 06/22/24 00:15 06/22/24 00:03 35 06/22/24 00:00 06/21/24 23:52 06/21/24 23:52 06/21/24 23:51 06/21/24 23:33 06/21/24 23:21 06/21/24 23:06 06/21/24 22:52 06/21/24 22:51 06/21/24 22:45 06/21/24 22:39 06/21/24 22:03 06/21/24 21:52 06/21/24 21:48 06/21/24 21:30 06/21/24 21:15 06/21/24 21:06 06/21/24 20:57 06/21/24 20:52 06/21/24 20:52 06/21/24 20:52 06/21/24 20:39 06/21/24 20:34 50 35 06/21/24 20:33 Lab & Micro Results (Past 24 Hours) No Data to Display Na 152 mmol/L (136-145) H 06/22/24 K 4.5 mmol/L (3.5-5.1) 06/22/24 Cl 124 mmol/L (98-107) H 06/22/24 CO2 17 mmol/L (21-32) L 06/22/24 Anion Gap 11 (3-11) 06/22/24 BUN 25 mg/dl (6-23) H 06/22/24 Creatinine 0.77 mg/dl (0.6-1.2) 06/22/24 Estimated GFR ( Amer) 89.4 ml/min 06/22/24 Estimated GFR (Non-Af Amer) 77.1 ml/min 06/22/24 BUN/Creatinine Ratio 32.5 (10-20) H 06/22/24 Glu 101 mg/dl (70-99(Fasting)) H 06/22/24 Ca 7.1 mg/dl (8.6-10.3) L 06/22/24 Phosphorus Level 3.1 mg/dl (2.5-4.9) 06/22/24 AST 175 U/L (13-39) H 06/22/24 ALT 82 U/L (7-52) H 06/22/24 Mg 2.2 mg/dl (1.7-2.4) 06/22/24 04:34 Calcium Level 7.1 mg/dl (8.6-10.3) L 06/22/24 04:34 Microbiology 06/19/24 18:57 Aerobic Blood Culture - Preliminary Blood No growth in Aerobic bottle after 48 hours. Anaerobic Blood Culture - Preliminary No growth in Anaerobic bottle after 48 hours. Diagnostic Findings (Past 24 Hours) KUB X-Ray 06/21/24 06:30 KUB HISTORY: Acute generalized abdominal pain eval for worsening ? SBO from CT scan 06/19 COMPARISON: CT 06/19/2024 FINDINGS: Surgical clips and anastomotic sutures project over the abdomen and pelvis. Left basilar opacity is redemonstrated along with cardiomegaly. Air-f illed loops of large and small bowel are again noted projected over the central abdomen with mild gaseous distention. A catheter projects over the rectum. Moderately stool-filled rectosigmoid. Renal shadows are partially obscured by bowel gas. Bilateral nephrolithiasis redemonstrated. No definite ureteral calculi identified. No pneumoperitoneum or pneumatosis. No fracture. IMPRESSION: 1. Air-filled loops of large and small bowel within the central abdomen are similar to the prior CT which may represent ileus versus partial obstruction. Continued follow-up recommended. 2. Bilateral nephrolithiasis. ACT 112: Negative or not required by law. The above report was generated using voice recognition software. It may contain grammatical, syntax or spelling errors. Electronically signed by: Soham Kirby M.D. 06/21/2024 9:29 AM I & O Totals 24 Hours 06/21/24 06/22/24 06/23/24 06:59 06:59 06:59 Intake Total 4657.800 / 4657.800 1157.5 / 1157.5 Output Total 2476 / 2476 1290 / 1290 Balance 2181.800 / 2181.800 -132.5 / -132.5 Cumulative 06/19/24 17:30 thru 06/22/24 05:43 Intake Total 54051.616 Output Total 4416 Balance 5766.616 RT Ventilator Mngmt (Last Documented) Ventilator Ordered Settings Respiratory Rate 24 06/22/24 07:53 Fraction of Inspired Oxygen 35 06/22/24 07:53 Ventilator - PT Measurements Respiratory Rate 24 Coding Level of Care Code 26388 SUB INP/OBS CARE 3/50MIN Diagnoses Septic shock A41.9; R65.21 COVID-19 U07.1 Encephalopathy G93.40 Pneumonia J18.9 Laterality: left Lung location: lower lobe of lung Pneumonia type: due to unspecified organism Diarrhea R19.7 ILD (interstitial lung disease) J84.9 Hypothyroidism E03.9 Chronic kidney disease N18.9 Chronic diastolic (congestive) heart failure I50.32 Pancreatic insufficiency K86.89 (4) Pneumonia Laterality: left Lung location: lower lobe of lung Pneumonia type: due to unspecified organism Qualified Code(s): J18.9 - Pneumonia, unspecified organism
[2024-06-22] MEDS: ONDANSETRON INJ 2 MG/ML 2 ML VIAL IV PRN (08:34)
[2024-06-22] MEDS: FUROSEMIDE INJ 20 MG/2 ML VIAL IV ONE ×2 (08:53→10:37)
[2024-06-22] MEDS: D5W AND 0.2% NaCL 1,000 ML IV SCH (10:37)
--- NOTE | 2024-06-22 11:07 | XRay Report ---
XR chest 1V portable CLINICAL HISTORY: Respiratory failure. COMPARISON STUDY: Chest radiograph and chest CT June 19, 2024. FINDINGS: Right internal jugular [id number] is in place. Cardiomegaly is again noted. There is a m oderate left pleural effusion. A small to moderate left pneumothorax has developed since prior examin ation. Superior pleural separation measures 1.1 cm. Pleural gas along the medial aspect of the left l amarjit is noted. There is also a suspected lateral pneumothorax. Bilateral airspace opacities, greater w ithin the left lung, persists. IMPRESSION: 1. Interval development of a small to moderate left hydropneumothorax. Findings will be called/faxed to the ordering provider at time of dictation. 2. Persistent bilateral airspace opacities, greater within the left lung, suggestive of multifocal pn eumonia. ACT 112: Negative or not required by law. Electronically signed by: Mehrdad Torre M.D. 06/22/2024 11:05 AM
--- NOTE | 2024-06-22 14:33 | Pharmacy Report ---
Pharmacy PK ABX Note - Date of Service June 22, 2024 - Assessment and Plan Assessment * 73 year old F receiving VANCOMYCIN + MEROPENEM + AZITHROMYCIN for treatment of septic shock likely from pulmonary +/- urinary source. * Pertinent microbiologic data includes: Positive MRSA Nasal Swab, resp BioFire + COVID19, BLCX no growth to date, UA did not show pyuria, UCx showed likely contamination * Day # 4 of antimicrobial therapy (planned 7 day course of vancomycin/meropenem per Radio Reporter) * Continuing to show slow improvement per Provider assessment. Renal fxn stable Plan Vancomycin * Random vancomycin level drawn this afternoon = 19.7 (@1301) * Will change current maintenance dose of 1250 mg IV every 24 hours to 1500mg IV every 24 hours. Current regimen likely to overshoot p'kinetic target AUC/JOSE MIGUEL ratio * New regimen is predicted to achieve target AUC/JOSE MIGUEL of 400-600 mg/L.hr * Will check drug level again in 24-48 hours Pharmacy will continue to follow and will adjust dose/frequency as necessary. Thank you. Pharmacy has transitioned to AUC monitoring for vancomycin. AUC/JOSE MIGUEL is the preferred PK/PD target and is associated with decreased risk of nephrotoxicity compared to traditional trough targets.
--- NOTE | 2024-06-22 15:37 | Hospitalist Progress Note ---
Date of Service June 22, 2024 Assessment & Plan (1) Lethargy: Plan: 73-year-old female with past medical history significant for chronic pancreatitis, hyperlipidemia, hypothyroidism, secondary hyperparathyroidism of renal origin, history of hypoglycemia, COPD, complex sleep apnea syndrome, chronic diastolic CHF, CKD stage III, sick sinus syndrome status post pacemaker, mitral valve disorder, chronic venous insufficiency, history of renal disease, pulmonary hypertension, history of occlusion of left saphenous vein, GERD, status post partial gastrectomy ,postsurgical malabsorption, obstructive uropathy, osteoarthritis, restless leg syndrome, osteoporosis, dysgeusia, history of C. difficile, depression, KRYSTAL, history of kidney stones, gait disturbance ambulates with walker, lives alone was brought in because of confusion and lethargy and found to have COVID, UTI and pneumonia. Acute Metabolic encephalopathy- resolved Severe sepsis/Septic shock Acute hypoxic respiratory failure COVID 19 Infection Multifocal Pneumonia Acute UTI Patient's presents with confusion and lethargy. --CT head:No acute intracranial process or significant alteration from the prior examination with chronic underlying presumed age-related findings. --CTA chest shows dense consolidation involving the left lower lobe; consistent with pneumonia with suspected interval developing necrotizing process. No cavitation noted. Also has areas of consolidation involving the right lung. Bronchi on right and left side with complete opacification of segmental branches; likely represent aspiration or endobronchial secretions. --MRSA nares positive --CT abdomen and pelvis findings suggestive of jejunitis/enteritis. --Blood cultureno growth till date --Urine culture3 types of organism; all high counts Continue on meropenem, vancomycin, azithromycin and dexamethasone. plan for 7 day course Appreciate director of supply chain help Vasopressors discontinued BiPAP transition to nasal cannula Titrate down oxygen as able Advance diet as able Hypernatremia Continue IV fluids Monitor sodium levels Obstipation Continue Bowel regimen Had bowel movements Jejunitis/enteritis Esophagitis Stool for C. difficile negative On antibiotics as above Continue PPI Hypokalemia Replete and monitor Elevated troponin Demand Ischemia High sensitive troponin 134 and admission peaked to 405.5 and down trended Echocardiogram shows EF of 55-60%. Chronic diastolic CHF Getting fluids Monitor for volume overload History of COPD/asthma/ILD/pulmonary hypertension Continue home inhalers Nebs as needed Obstructive sleep apnea Noncompliant with BiPAP BiPAP HS if tolerated Hypothyroidism Continue levothyroxine Sick sinus syndrome Status post pacemaker GERD continue famotidine and PPI H/O C. difficile Recently in March had course of p.o. vancomycin Monitor for any diarrhea C.diff negative H/O Gastric bypass Continue home medications H/O Chronic pancreatitis Pancreatic insufficiency Malabsorption Continue home meds when able to take H/O mood/anxiety disorder Continue home meds when able to take Chronic pain Neuropathy On Pregabalin oxycodone as needed H/O chronic headaches Possible tension headaches per neurology On Lamictal and Cymbalta Seems recently started on Ubrelvy CKD stage III Creatinine Stable Monitor H/O Hypotension Requiring midodrine during admission in December 2023 Monitor BP History of chronic nephrolithiasis Secondary hyperparathyroidism On Calcitrol and calcium supplementation Endocrinology follow-up Ambulate dysfunction Ambulates with a walker Continue PT/OT DVT prophylaxis Lovenox SQ Disposition PT/OT prior to discharge Admission and Anticipated Discharge Date Admission Date: June 19, 2024 Subjective Patient is seen and examined at bedside States having cough Less supplemental oxygen requirement today Also reports nausea and feels very tired Abdominal pain resolved, had bowel movements Currently saturating well on 12 L supplemental oxygen Will downgrade out of ICU Review of Systems Review of Systems: All systems reviewed & are unremarkable except as noted in Subjective Physical Exam Physical Exam: Physical Exam: Vitals signs as noted above General Appearance:Obese, no apparent distress Head: normocephalic, Atraumatic Eyes: normal inspection, EOMI Neck: supple, Trachea midline Respiratory/Chest: Decreased breath sounds, + crackles, rhonchi, no accessory muscle use Cardiovascular: S1, S2, No murmur Abdomen/GI:Soft, non tender, bowel sounds present Extremities/Musculoskeletal:normal inspection, no edema Neurologic/Psych:AAOX3, grossly no focal neurological deficits Skin: normal color, warm Results & Data Results & Data Vital Signs (Past 12 Hours) Vital Signs Temp Pulse Pulse Resp BP Pulse Ox O2 Del Method 06/22/24 12:12 37.1 C 96 H 24 97 Nasal Cannula 06/22/24 11:52 126/73 06/22/24 11:48 37.1 C 96 H 27 H 96 06/22/24 11:00 37.1 C 102 H 16 95 06/22/24 10:09 36.9 C 98 H 16 97 06/22/24 09:52 143/77 H 06/22/24 09:52 143/77 H 06/22/24 09:48 36.9 C 94 H 32 H 92 06/22/24 09:12 36.8 C 93 H 15 92 06/22/24 09:03 High Flow Nasal Cannula 06/22/24 08:03 36.7 C 94 H 38 H 92 High Flow Nasal Cannula 06/22/24 07:53 92 H 24 92 High Flow Nasal Cannula 06/22/24 07:52 114/69 06/22/24 07:52 114/69 06/22/24 07:45 36.7 C 88 26 H 94 06/22/24 07:00 36.7 C 87 29 H 95 06/22/24 04:00 36.7 C 91 H 28 H 94 06/22/24 03:52 109/67 06/22/24 03:52 109/67 06/22/24 03:52 109/67 06/22/24 03:52 109/67 06/22/24 03:45 36.7 C 88 29 H 95 O2 Flow Rate FiO2 06/22/24 12:12 12 06/22/24 11:52 06/22/24 11:48 06/22/24 11:00 06/22/24 10:09 06/22/24 09:52 06/22/24 09:52 06/22/24 09:48 06/22/24 09:12 06/22/24 09:03 35 55 06/22/24 08:03 35 0.55 06/22/24 07:53 50 35 06/22/24 07:52 06/22/24 07:52 06/22/24 07:45 06/22/24 07:00 06/22/24 04:00 06/22/24 03:52 06/22/24 03:52 06/22/24 03:52 06/22/24 03:52 06/22/24 03:45 Laboratory Results BMP 06/21/24 06/22/24 18:11 04:34 Sodium 152 H Potassium 4.3 4.5 Chloride 124 H Carbon Dioxide 17 L BUN 25 H Creatinine 0.77 Glucose 101 H Calcium 7.1 L Liver Function 06/22/24 Range/Units 04:34 AST 175 H (13-39) U/L ALT 82 H (7-52) U/L
--- NOTE | 2024-06-22 15:42 | Communication Note ---
Date of Service: June 22, 2024 CXR suggestive of small to moderate left hydropneumothorax. Will update Critical Care and monitor with daily CXR.
[2024-06-22] MEDS: PANTOprazole 40 MG TAB PO SCH (20:43)
[2024-06-22] MEDS: VANCOMYCIN HCL 1,500 MG in SODIUM CHLORIDE 0.9% 500 ML IV SCH (22:41)
--- NOTE | 2024-06-23 07:09 | XRay Report ---
XR chest 1V portable HISTORY: 74 years-old Female resp failure acute respiratory failure COMPARISON: 06/22/2024 TECHNIQUE: AP view of the chest FINDINGS: Loculated left-sided hydropneumothorax with pneumothorax lateral component measuring up to 1.8 cm, si milar to prior. The heart is upper limits of normal in size. Right IJ Oikzzf-c-Lycq catheter is uncha nged. Mixed interstitial and alveolar opacities redemonstrated along with small right pleural effusio n and upper abdominal surgical clips. IMPRESSION: 1. No significant change in size of the loculated left hydropneumothorax. 2. Mixed interstitial and alveolar opacities of the lungs are similar to prior. ACT 112: Negative or not required by law. The above report was generated using voice recognition software. It may contain grammatical, syntax o r spelling errors. Electronically signed by: Soham Kirby M.D. 06/23/2024 7:07 AM
--- NOTE | 2024-06-23 08:29 | Pulmonology Progress Note ---
Date of Service June 23, 2024 Assessment & Plan (1) COVID-19: (2) Encephalopathy: (3) Pneumonia: Laterality: left Lung location: lower lobe of lung Pneumonia type: due to unspecified organism Qualified Code(s): J18.9 - Pneumonia, unspecified organism (4) ILD (interstitial lung disease): (5) Chronic kidney disease: Plan Impression: 73 YOF presents with history of interstitial lung disease and pneumonia as well as COVID. Her chest x-ray demonstrates a small stable loculated left basilar pneumothorax. Recommendations: 1. Pneumonia: Completing course of meropenem, vancomycin, and azithromycin. 2. COVID: Continue dexamethasone 6 mg daily. Recommend initiation of diuresis 3. Pneumothorax: Likely secondary to interstitial lung disease, COVID, and use of positive airway pressure. Discontinue BiPAP. Pneumothorax has been stable on imaging. Will repeat chest x-ray in a.m.. If it increases in size or becomes hemodynamically significant, will consider drainage at that time. 4. Encephalopathy: Bicarb is decreasing. Will recheck blood gas and lactate Prognosis remains guarded Admission and Anticipated Discharge Date Admission Date: June 19, 2024 Subjective Patient seen and examined on the floor. She is sleeping but arousable. She does appear somewhat more somnolent compared to yesterday. She has BiPAP in place which will be discontinued given the loculated pneumothorax identified on the left on her chest x-ray. Review of Systems 2 Review of Systems: Unobtainable due to reduced consciousness Physical Exam 2 Constitutional: WD/WN, vitals as above Neck: trachea midline, no thyromegaly Respiratory: + cough and + tachypneic; no respiratory distress and no labored breathing Auscultation: + crackles and + rhonchi; no wheezes Cardiovascular: RRR, no murmur, no edema Gastrointestinal (Abdomen): normal bowel sounds, soft, nontender, no hepatosplenomegaly Musculoskeletal: Extremities: extremities normal to inspection Skin: no rashes, warm and dry Lymphatic: no cervical lymphadenopathy Results & Data Results & Data Vital Signs (Past 12 Hours) Vital Signs Temp Pulse Pulse Resp BP Pulse Ox O2 Del Method 06/23/24 07:36 37.0 C 90 22 146/91 H 97 BiPAP 06/23/24 07:00 88 06/23/24 03:55 36.4 C L 86 33 H 129/79 94 BiPAP 06/23/24 03:00 92 H 28 H 93 06/22/24 23:47 36.8 C 87 30 H 128/81 95 BiPAP 06/22/24 22:30 104 H 30 H 96 06/22/24 21:58 92 H 06/22/24 20:40 High Flow Nasal Cannula O2 Flow Rate FiO2 06/23/24 07:36 06/23/24 07:00 06/23/24 03:55 06/23/24 03:00 35 06/22/24 23:47 06/22/24 22:30 35 06/22/24 21:58 06/22/24 20:40 10 Laboratory Results 06/20/24 03:23 06/22/24 04:34 Diagnostic Findings Chest x-ray from today was reviewed. There is no change in the 17 mm loculated left basilar pneumothorax PG Care Time/CCT Total # of Minutes Spent Total Time Spent with Patient: Total time spent is greater than 50% in coordination of care (as documented) at patient's floor/unit and/or counseling patient: Coding Level of Care Code 41806 SUB INP/OBS CARE 3/50MIN Diagnoses COVID-19 U07.1 Encephalopathy G93.40 Pneumonia J18.9 Laterality: left Lung location: lower lobe of lung Pneumonia type: due to unspecified organism ILD (interstitial lung disease) J84.9 Chronic kidney disease N18.9
[2024-06-23] MEDS: FUROSEMIDE INJ 20 MG/2 ML VIAL IV SCH (08:58)
[2024-06-23 09:05] LABS: Allen Test Pos (Pos); Base Excess ABG -4.4 mEq/L (-9-1.8); HCO3 ABG 23 mmol/L (19-24); Oxygen Saturation ABG 95.9 % (90-95); PCO2 ABG 48 mmHg (35-46); PO2 ABG 76 mmHg (80-95); pH ABG 7.28 (7.35-7.45)
[2024-06-23 09:11] LABS: Basophils # (auto) 0.04 K/uL (0.00-0.20); Basophils % (auto) 0.3 %; Eosinophils # (auto) 0.02 K/uL (0.00-0.50); Eosinophils % (auto) 0.1 %; Hematocrit (blood only) 43.2 % (37.0-47.0); Hemoglobin 13.5 g/dl (12.0-16.0); Immature Granulocytes # (auto) 0.18 K/uL (0.01-0.20); Immature Granulocytes % (auto) 1.3 %; Lymphocytes # (auto) 0.63 K/uL (1.20-3.40); Lymphocytes % (auto) 4.7 %; Mean Corpuscular Hemoglobin 29.9 pg (25.0-34.0); Mean Corpuscular Hgb Conc 31.3 g/dL (32.0-36.0); Mean Corpuscular Volume 95.6 fL (80.0-100.0); Mean Platelet Volume 10.2 fL (9.4-12.4); Monocytes # (auto) 1.18 K/uL (0.11-0.59); Monocytes % (auto) 8.8 %; Neutrophils # (auto) 11.29 K/uL (1.40-6.50); Neutrophils % (auto) 84.8 %; Platelet Count 149 K/uL (130-400); RDW Coefficient of Variation 16.3 % (11.5-14.5); RDW Standard Deviation 57.8 fL (36.4-46.3); Red Blood Count 4.52 M/uL (4.20-5.40); White Blood Count 13.34 K/ul (4.8-10.8)
[2024-06-23 09:28] LABS: BUN Creatinine Ratio 33.3 (10-20); Calcium 7.2 mg/dl (8.6-10.3); Creatinine Clr Calc Pharmacy 70.6 ml/min; Est GFR (African American) 102.3 ml/min; Est GFR (Non-African American) 88.3 ml/min; Magnesium 1.9 mg/dl (1.7-2.4); Potassium 4.4 mmol/L (3.5-5.1)
[2024-06-23] MEDS ORDERED: POTASSIUM PHOS 3 MMOL/1 ML INFUSION IV ONE (09:39)
[2024-06-23] MEDS: POTASSIUM PHOSPHATE 24 MMOL in SODIUM CHLORIDE 0.9% 250 ML IV ONE (13:54)
--- NOTE | 2024-06-23 15:30 | Hospitalist Progress Note ---
Date of Service June 23, 2024 Assessment & Plan (1) Lethargy: Plan: 73-year-old female with past medical history significant for chronic pancreatitis, hyperlipidemia, hypothyroidism, secondary hyperparathyroidism of renal origin, history of hypoglycemia, COPD, complex sleep apnea syndrome, chronic diastolic CHF, CKD stage III, sick sinus syndrome status post pacemaker, mitral valve disorder, chronic venous insufficiency, history of renal disease, pulmonary hypertension, history of occlusion of left saphenous vein, GERD, status post partial gastrectomy ,postsurgical malabsorption, obstructive uropathy, osteoarthritis, restless leg syndrome, osteoporosis, dysgeusia, history of C. difficile, depression, KRYSTAL, history of kidney stones, gait disturbance ambulates with walker, lives alone was brought in because of confusion and lethargy and found to have COVID, UTI and pneumonia. Acute Metabolic encephalopathy- resolved Severe sepsis/Septic shock Acute hypoxic respiratory failure COVID 19 Infection Multifocal Pneumonia Acute UTI Patient's presents with confusion and lethargy. --CT head:No acute intracranial process or significant alteration from the prior examination with chronic underlying presumed age-related findings. --CTA chest shows dense consolidation involving the left lower lobe; consistent with pneumonia with suspected interval developing necrotizing process. No cavitation noted. Also has areas of consolidation involving the right lung. Bronchi on right and left side with complete opacification of segmental branches; likely represent aspiration or endobronchial secretions. --MRSA nares positive --CT abdomen and pelvis findings suggestive of jejunitis/enteritis. --Blood cultureno growth till date --Urine culture3 types of organism; all high counts Continue on meropenem, vancomycin, azithromycin and dexamethasone. plan for 7 day course Appreciate building superintendent help Vasopressors discontinued Continue high flow oxygen, avoid BiPAP given pneumothorax Titrate down oxygen as able Discussed in detail with patient and patient's sister (POA) over the phone Started on IV diuresis to keep on right side Poor prognosis Left hydropneumothorax Avoid BiPAP Will repeat chest x-ray tomorrow Pulmonology following Hypernatremia Continue IV fluids Monitor sodium levels Sodium 151 today Obstipation Continue Bowel regimen Had bowel movements Jejunitis/enteritis Esophagitis Stool for C. difficile negative On antibiotics as above Continue PPI Hypokalemia Replete and monitor Elevated troponin Demand Ischemia High sensitive troponin 134 and admission peaked to 405.5 and down trended Echocardiogram shows EF of 55-60%. Chronic diastolic CHF Monitor for volume overload IV Lasix as above History of COPD/asthma/ILD/pulmonary hypertension Continue home inhalers Nebs as needed Obstructive sleep apnea Noncompliant with BiPAP Continue supplemental oxygen Hypothyroidism Continue levothyroxine Sick sinus syndrome Status post pacemaker GERD continue famotidine and PPI H/O C. difficile Recently in March had course of p.o. vancomycin Monitor for any diarrhea C.diff negative H/O Gastric bypass Continue home medications H/O Chronic pancreatitis Pancreatic insufficiency Malabsorption Continue home meds when able to take H/O mood/anxiety disorder Continue home meds when able to take Chronic pain Neuropathy On Pregabalin oxycodone as needed Minimize narcotics to avoid excess sedation H/O chronic headaches Possible tension headaches per neurology On Lamictal and Cymbalta Seems recently started on Ubrelvy CKD stage III Creatinine Stable Monitor H/O Hypotension Requiring midodrine during admission in December 2023 Monitor BP History of chronic nephrolithiasis Secondary hyperparathyroidism On Calcitrol and calcium supplementation Endocrinology follow-up Ambulate dysfunction Ambulates with a walker Continue PT/OT DVT prophylaxis Lovenox SQ Disposition PT/OT prior to discharge Admission and Anticipated Discharge Date Admission Date: June 19, 2024 Subjective Patient is seen and examined at bedside Patient is drowsy but able to answer questions Admits to have cough and dyspnea Denies any chest pain, abdominal pain, nausea, vomiting Updated patient's family over the phone/discussed CODE STATUS both with patient and family Requiring high flow oxygen to maintain saturation Review of Systems Review of Systems: All systems reviewed & are unremarkable except as noted in Subjective Physical Exam Physical Exam: Physical Exam: Vitals signs as noted above General Appearance:Obese, no apparent distress Head: normocephalic, Atraumatic Eyes: normal inspection, EOMI Neck: supple, Trachea midline Respiratory/Chest: Decreased breath sounds, + crackles, rhonchi, +accessory muscle use Cardiovascular: S1, S2, No murmur Abdomen/GI:Soft, non tender, bowel sounds present Extremities/Musculoskeletal:normal inspection, no edema Neurologic/Psych:AAOX3, grossly no focal neurological deficits Skin: normal color, warm Results & Data Results & Data Vital Signs (Past 12 Hours) Vital Signs Temp Pulse Pulse Resp BP Pulse Ox O2 Del Method 06/23/24 11:16 36.8 C 88 21 125/74 95 High Flow Nasal Cannula 06/23/24 09:45 89 27 H 93 High Flow Nasal Cannula 06/23/24 08:00 BiPAP 06/23/24 07:36 37.0 C 90 22 146/91 H 97 BiPAP 06/23/24 07:00 88 06/23/24 03:55 36.4 C L 86 33 H 129/79 94 BiPAP O2 Flow Rate FiO2 06/23/24 11:16 35 06/23/24 09:45 35 60 06/23/24 08:00 06/23/24 07:36 06/23/24 07:00 06/23/24 03:55 Laboratory Results Short CBC 06/23/24 Range/Units 08:44 WBC 13.34 H (4.8-10.8) K/ul Hgb 13.5 (12.0-16.0) g/dl Hct 43.2 (37.0-47.0) % Plt Count 149 (130-400) K/uL BMP 06/23/24 08:44 Sodium 151 H Potassium 4.4 Chloride 122 H Carbon Dioxide 24 BUN 22 Creatinine 0.66 Glucose 160 H Calcium 7.2 L Liver Function 06/23/24 Range/Units 08:44 AST 93 H (13-39) U/L ALT 76 H (7-52) U/L
--- NOTE | 2024-06-23 15:53 | Communication Note ---
Date of Service: June 23, 2024 Discussed CODE STATUS with patient and patient's sister- Ms.Dee Martinez (POA): Given multiple comorbidities, poor prognosis patient's CODE STATUS changed to DO NOT INTUBATE only. Will consider palliative care if continues to deteriorate.
[2024-06-24 06:16] LABS: Hematocrit (blood only) 39.3 % (37.0-47.0); Hemoglobin 12.6 g/dl (12.0-16.0); Mean Corpuscular Hemoglobin 30.1 pg (25.0-34.0); Mean Corpuscular Hgb Conc 32.1 g/dL (32.0-36.0); Mean Platelet Volume 10.8 fL (9.4-12.4); Platelet Count 144 K/uL (130-400); RDW Coefficient of Variation 15.8 % (11.5-14.5); RDW Standard Deviation 54.3 fL (36.4-46.3); Red Blood Count 4.18 M/uL (4.20-5.40); White Blood Count 8.76 K/ul (4.8-10.8)
[2024-06-24 06:29] LABS: BUN Creatinine Ratio 33.9 (10-20); Calcium 6.8 mg/dl (8.6-10.3); Est GFR (African American) 106.1 ml/min; Est GFR (Non-African American) 91.6 ml/min; Magnesium 1.5 mg/dl (1.7-2.4); Phosphorus 1.7 mg/dl (2.5-4.9); Potassium 3.9 mmol/L (3.5-5.1)
--- NOTE | 2024-06-24 07:14 | XRay Report ---
XR chest 1V portable HISTORY: 74 years-old Female resp failure acute shortness of breath with respiratory failure COMPARISON: 06/23/2024 TECHNIQUE: AP view the chest FINDINGS: Loculated left-sided hydropneumothorax with pneumothorax component measuring up to 2.8 cm at the lung apex, increased from prior. The heart is upper limits of normal in size. Right IJ Txygnt-s-Zpha cath eter is unchanged. And electronic device projects over the left heart border. Mixed interstitial and alveolar opacities have progressed. Small right pleural effusion and upper abdominal surgical clips. IMPRESSION: 1. Increased size of the loculated left-sided hydropneumothorax. 2. Progressive mixed interstitial and alveolar opacities of the lungs. ACT 112: Negative or not required by law. The above report was generated using voice recognition software. It may contain grammatical, syntax o r spelling errors. Electronically signed by: Soham Kirby M.D. 06/24/2024 7:13 AM
[2024-06-24] MEDS ORDERED: POTASSIUM PHOS 3 MMOL/1 ML INFUSION IV ONE (08:01)
[2024-06-24] MEDS: POTASSIUM PHOSPHATE 30 MMOL in SODIUM CHLORIDE 0.9% 500 ML IV ONE (09:18)
[2024-06-24] MEDS: MAGNESIUM SULFATE / D5W 1 GM/100 ML BAG IV SCH (09:18)
--- NOTE | 2024-06-24 09:24 | Procedure Note ---
Procedure Note Date of Service June 24, 2024 Procedure: Attempted 14 Bhutanese pigtail catheter placement. Conversion to 20 Bhutanese chest tube Indication: Secondary pneumothorax Consent risk and benefits were discussed with the patient. She agreed. Accounts Receivable Specialist Dr. Canales Estimated blood loss:20 mL Anesthesia: 10 mL 1% lidocaine without epinephrine locally. Procedure: The patient been admitted with diffuse pulmonary infiltrates and COVID. She had worsening of her oxygen requirement and chest x-ray was performed which revealed progression of a moderate-sized pneumothorax on the left. Patient was declining clinically in respiratory distress. She was brought urgently to the ICU. I verbally discussed chest tube placement and she agreed. We also discussed intubation mechanical ventilation which she also agreed to The patient was placed in a semirecumbent left side up decubitus position. The anterior to posterior axillary line lateral to the nipple was cleansed using chlorhexidine and a sterile field established. An area in the mid axillary line lateral to the nipple was anesthetized with lidocaine. The muscle and deeper soft tissues were anesthetized using a finder needle. An additional pass was unable to aspirate air. I then marked a second spot approximately 2 cm above our initial attempt. A small skin ever was made with a scalpel there and the needle was advanced where we were able to aspirate blood and air. A 19-gauge needle was then used to advance on a similar line into the space where we again were able to aspirate air. A wire was passed. The needle was removed leaving the wire in place. A dilator was passed over the wire without difficulty. 2014 Bhutanese pigtail catheter was then passed over the wire and the wire removed. It was kinked.. The locking mechanism was secured and the tube was attached to suction however no significant air leak was identified. The tube was manipulated on multiple occasions and we were unable to get any significant air leak or tidaling. Decision was made to remove that tube and proceed with a surgical chest tube. The tube was removed and a dressing applied to the incision site. The patient remained in the decubitus position. The axillary area lateral to the nipple was again cleaned using chlorhexidine and a sterile field reestablished. Body habitus made palpation of anatomical structures difficult. Using a 21-gauge needle, an area that was again infiltrated with lidocaine down to the chest wall. A 2 cm incision was made with a scalpel and blunt dissection using curved hemostats was conducted through the adipose tissue until I was able to pass my finger into the incision. Additional blunt dissection was conducted with my finger and curved hemostats until I was able to palpate ribs. I was able to identify an intercostal space. At that point in time I took a curved Jorge clamp and performed up neurotomy which was then dilated until I could pass my finger in between the ribs. I was able to sweep 360 degrees and did not feel any adherent lung. At that point in time a 20 Bhutanese chest tube on a stiff trocar was directed with my finger through the pleurodesis tight and directed superiorly and laterally. The trocar was removed. The tube was attached to suction with some bloody return but minimal air. There was some bleeding emanating from the skin incision site which was controlled with direct pressure. Once hemostasis was confirmed, 2-0 silk was used to approximate the skin edges and tied the chest tube into place. A sterile dressing was applied. The tube was attached to 20 cm of wall suction and a follow-up chest x-ray has been ordered. The patient tolerated the procedure well. [facility] [place] Procedure Codes (Charges) Pulmonary/Thoracic Procedure 1: Pulmonary and Thoracic: 37999 Pleural drainage w/o imaging Procedure 2: Pulmonary and Thoracic: 71248 Tube thoracostomy Coding CPT Codes Pulmonary/Thoracic - Pulmonary and Thoracic: 81817 Pleural drainage w/o imaging ([id number]) Pulmonary/Thoracic - Pulmonary and Thoracic: 57903 Tube thoracostomy ([id number]) Additional Codes Date of Service (PG.SURGERY)
--- NOTE | 2024-06-24 09:35 | Procedure Note ---
Procedure Note Date of Service June 24, 2024 INTUBATION PROCEDURE NOTE: Provider: Gene Canales MD A time-out was completed verifying correct patient, procedure, site, positioning. Patient was evaluated and required intubation for respiratory failure and respiratory distress. Sedative agent used: Etomidate Paralysis agent used: None Emergent consent was implied given patients rapidly declining clinical status and need for airway protection. The patient was prepared in the appropriate fashion. Sedation was achieved utilizing etomidate. The patient was preoxygenated on high flow. Once sedation was achieved, video laryngoscopy was performed. Vocal cords were easily visualized. A 7.5 endotracheal tube was placed and observed passing through the cords. The stylette was removed and balloon was inflated with 10mL of air. Appropriate Colorimetric change was appreciated. Bilateral breath sounds were heard without air sounds in the abdomen. Post Intubation Chest X-ray confirms placement without pneumothorax. Patient tolerated the procedure well and there were no immediate complications. [facility] [place] Procedure Codes (Charges) Resuscitation Resuscitation: 39909 Endotracheal Intubation, emergency Coding CPT Codes Resuscitation - Resuscitation: 22804 Endotracheal Intubation, emergency ([id number]) Additional Codes Date of Service (PG.SURGERY)
--- NOTE | 2024-06-24 09:39 | Procedure Note ---
Procedure Note Date of Service June 24, 2024 ARTERIAL LINE PROCEDURE NOTE: Procedure: Arterial Line Placement Provider: Gene Canales MD Indication: Monitoring on Pressors Anesthesia: None Procedure was emergent. Patient just been intubated and was hemodynamically unstable. A time-out was completed verifying correct patient, procedure, site, positioning, and implant(s) or special equipment if applicable. Allens test was performed to ensure adequate perfusion. Patient's right groin was interrogated using ultrasound. The artery and vein were easily identified. Under direct ultrasound visualization, the right femoral artery was cannulated with an 18- gauge needle. A wire was passed into the vessel and the needle removed leaving the wire in place. A small skin ever was made. A 12 cm catheter was then threaded over the wire into the vessel and the wire removed. Pulsatile blood flow was observed. Tubing was attached to the catheter and an arterial waveform observed. Blood Loss: 5 mL Complications: None [facility] [place] Procedure Codes (Charges) Tubes, Drains, and Vasc Access Procedure 1: Tubes, Drains, and Vasc Access: [id number] Arterial Cath/Cannulation Sampling/Monitoring/Transfusion Procedure 2: Tubes, Drains, and Vasc Access: [id number] Ultrasound Guidance For Vascular Coding CPT Codes Tubes, Drains, and Vasc Access - Tubes, Drains, and Vasc Access: [id number] Arterial Cath/Cannulation Sampling/Monitoring/Transfusion ([id number]) Tubes, Drains, and Vasc Access - Tubes, Drains, and Vasc Access: [id number] Ultrasound Guidance For Vascular ([id number]) Additional Codes Date of Service (PG.SURGERY)
[2024-06-24 09:40] LABS: iSTAT Art Bld Gas pCO2 Correct 50 mmHg (35-46); iSTAT Arterial Blood Gas HCO3 23 meg/L (19-24); iSTAT Arterial Blood Gas pCO2 50 mmHg (35-46); iSTAT Arterial Blood Gas pH 7.26 (7.35-7.45); iSTAT Arterial Blood Gas pO2 67 mmHg (80-95); iSTAT Arterial Blood Gas pO2 C 67; iSTAT Carbon Dioxide 24 mmol/L (24-31); iSTAT FiO2 100 %; iSTAT Hematocrit 35 % (37-47); iSTAT Hemoglobin 11.9 g/dl (12.0-16.0); iSTAT Potassium 3.4 mmol/L (3.3-5.0); iSTAT Site Art Line; iSTAT Sodium 150 mmol/L (135-144)
--- NOTE | 2024-06-24 09:59 | XRay Report ---
XR chest 1V portable HISTORY: chest tube COMPARISON: Chest 06/24/2024. FINDINGS: Interval placement of a left-sided chest tube which terminates within the left upper hemith orax. Interval decrease in size in the now small left hydropneumothorax. No mediastinal shift. The he art is unenlarged. The endotracheal tube terminates 1.7 cm from the robert. A right jugular catheter terminates in the SVC. Nasogastric tube terminates below the diaphragm. The tip is not included on th is study. The multifocal bilateral airspace opacities and a small right pleural effusion persist. The re is diffuse interstitial thickening. IMPRESSION: 1. Interval decrease in size in the now small left hydropneumothorax status post left chest tube plac ement. 2. Additional satisfactory support line placement as described above. 3. Bilateral airspace opacities persist. ACT 112: Negative or not required by law. Electronically signed by: Noel Crenshaw M.D. 06/24/2024 9:58 AM
[2024-06-24] MEDS: MIDAZOLAM HCL 1 MG/ML 2ML VIAL IV PRN (10:00)
--- NOTE | 2024-06-24 10:01 | Procedure Note ---
Procedure Note Date of Service June 24, 2024 CENTRAL LINE PROCEDURE NOTE: Procedure: Central Line Placement Provider: Gene Canales MD Indication: Central Drug Administration, Poor Venous Access, Multiple Lab Draws Necessary, etc. Anesthesia: 3 mL 1% lidocaine Site: Initial approach in the left subclavian, transition to right femoral Procedure was emergent. The patient was intubated and unable to provide verbal or written consent. No family immediately available A time-out was completed verifying correct patient, procedure, site, positioning, and implants(s) or special equipment if applicable. I initially attempted a left subclavian access. The skin was cleaned and draped in normal sterile fashion. I was easily able to access the subclavian vein on the first pass. A wire was passed however he did meet some resistance. I attempted to dilate the tract and passed a central triple-lumen catheter over the wire however the catheter was unable to be advanced much beyond about 10 cm. 2 of the ports were able to flush and draw but the distal port was nonfunctional. I suspect the patient has some degree of stenosis potentially related to her indwelling port. Decision was made to transition to a femoral site. The patient's right groin was cleaned using chlorhexidine and a sterile field established. Under direct ultrasound visualization, the femoral vein on the right was easily identified. An 18-gauge needle was used to access the vein. A wire was passed through the needle and the needle removed leaving the wire in place. Tract was dilated after a small skin ever was made with a scalpel. A triple-lumen catheter was advanced over the wire into the vessel and the wire r emoved. All ports thomas and flushed easily. Catheter was sutured in place and a sterile dressing was applied. estimated blood loss: 5 mL [facility] Procedure Codes (Charges) Tubes, Drains, and Vasc Access Procedure 1: Tubes, Drains, and Vasc Access: [id number] Place catheter in vein superior or inferior vena cava Procedure 2: Tubes, Drains, and Vasc Access: [id number] Ultrasound Guidance For Vascular Coding CPT Codes Tubes, Drains, and Vasc Access - Tubes, Drains, and Vasc Access: [id number] Place catheter in vein superior or inferior vena cava ([id number]) Tubes, Drains, and Vasc Access - Tubes, Drains, and Vasc Access: [id number] Ultrasound Guidance For Vascular ([id number]) Additional Codes Date of Service (PG.SURGERY)
[2024-06-24] MEDS ORDERED: PROPOFOL BOLUS FROM BAG IV PRN (11:08)
[2024-06-24] MEDS ORDERED: STAT IV Infusion **Titration per Protocol STA ×2 (11:08→14:27)
[2024-06-24] MEDS: PROPOFOL IV EMULSION 10 MG/ML 100 ML VIAL IV ONE (12:35)
[2024-06-24] MEDS: PHENYLEPHRINE HCL 25 MG/250 ML NSS IV ONE ×2 (12:35→12:36)
[2024-06-24] MEDS: PHENYLEPHRINE/NSS 25 MG/250 ML BAG IV SCH (12:35)
[2024-06-24] MEDS: fentaNYL citrate PF 100 MCG/2 ML VIAL ONE (12:36)
[2024-06-24] MEDS: RAPID SEQUENCE INDUCTION BAG ONE (12:36)
[2024-06-24] MEDS ORDERED: Nursing to Pharmacy Communication SCH ×2 (13:00)
[2024-06-24] MEDS: propofoL 1,000 MG/100 ML VIAL IV SCH (13:00)
--- NOTE | 2024-06-24 13:30 | Critical Care Progress Note ---
Date of Service June 24, 2024 Assessment & Plan (1) Septic shock: (2) COVID-19: (3) Encephalopathy: (4) Pneumonia: (5) Diarrhea: (6) ILD (interstitial lung disease): (7) Hypothyroidism: (8) Chronic kidney disease: (9) Chronic diastolic (congestive) heart failure: (10) Pancreatic insufficiency: Plan Impression: 73 YOF with interstitial lung disease and restrictive PFTs and hypoxemic and hypercarbic respiratory failure admitted with COVID and superi mposed probable bacterial pneumonia. She was initially in the ICU on noninvasive positive pressure ventilation and transferred to the floor. She developed a pneumothorax which initially was stable but on 06/24/2024 had increased in size with the patient developing increasing respiratory distress. She was transferred to the ICU 06/24/2024 where chest tube was placed and she was intubated for hypoxemic hypercarbic respiratory failure. 24-hour events: Patient transferred to the ICU urgently this morning. Chest tube was placed. The patient was intubated. Central venous and arterial lines were placed. Please refer to separate procedure notes. She was resuscitated and is now stable but critically ill Recommendations: Neuro -intubated. Continue propofol and as needed Versed. Cardiac -patient developed hypotension in the setting of sedation requiring Jhon- Synephrine. Potentially volume down. Aggressive electrolyte replacement and wean vasopressors as tolerated. Respiratory -hypoxemic respiratory failure secondary to COVID and probable bacterial pneumonia superimposed on restrictive lung disease and interstitial lung disease. She has developed a secondary pneumothorax. Chest tube has been placed with reexpansion of the lung. She continues to manifest patchy bilateral parenchymal densities superimposed on underlying fibrotic lung disease. Will check respiratory cultures. Continue protective ventilatory strategy. Keep chest tube to suction for now. GI -continue bowel regiment. Consult dietitian for initiation of tube feeding RENAL/LYTES -initiate ICU electrolyte replacement protocol. Will add free water to her gastric tube regiment. -Cam catheter ENDO - glycemic protocol per ICU orders. Continue thyroid replacement HEME - No acute needs. There was some bleeding associated with placement of the chest tube so we will hold on Lovenox for now and transition her to subcu heparin ID -COVID-19 pneumonitis superimposed on probable bacterial pneumonia. Currently D# Zosyn vancomycin azithromycin. Completed 5 days of azithromycin and will continue for an additional 2 days Zosyn vancomycin given MRSA positive nares. LINES/IV ACCESS - PIV, RT SCL Mediport, right femoral central venous catheter and right femoral arterial line Continue use of these lines DVT PROPHYLAXIS - SCDs, transition to subcu heparin The patient is critically ill with significant possibility of clinical deterioration and/or . No family is immediately available. A total of 90 minutes in critical care time exclusive of procedures was spent in evaluation management stabilization of this patient. Admission and Anticipated Discharge Date Admission Date: June 19, 2024 Subjective Patient is now intubated and sedated on the ventilator. Review of Systems Review of Systems: Unobtainable due to endotracheal tube Physical Exam Constitutional: WD/WN, vitals as above + mechanically ventilated Neck: trachea midline, no thyromegaly Respiratory: + tachypneic; no respiratory distress, n o labored breathing and no cough Auscultation: + crackles and + rhonchi; no wheezes Cardiovascular: RRR, no murmur, no edema Chest (Breasts): Additional Comments: Chest tube in place Gastrointestinal (Abdomen): normal bowel sounds, soft, nontender, no hepatosplenomegaly Musculoskeletal: Extremities: extremities normal to inspection Skin: no rashes, warm and dry Lymphatic: no cervical lymphadenopathy Results & Data Results & Data Vital Signs (Past 12 Hours) Vital Signs Temp Pulse Pulse Resp BP BP Pulse Ox 06/24/24 10:44 101 H 35 H 93 06/24/24 10:22 95/58 L 06/24/24 10:06 110 H 36 H 90 06/24/24 10:00 109 H 35 H 91 06/24/24 09:48 107 H 36 H 92 06/24/24 09:45 100/62 06/24/24 09:39 100/68 06/24/24 09:37 101/70 06/24/24 09:36 115 H 34 H 93 06/24/24 09:30 109 H 33 H 93 06/24/24 09:22 135/57 L 06/24/24 09:21 109 H 35 H 111/76 94 06/24/24 09:11 110/73 06/24/24 09:06 106 H 27 H 118/71 90 06/24/24 09:05 99/61 L 06/24/24 09:03 89/60 L 06/24/24 08:57 124 H 27 H 96/64 L 90 06/24/24 08:55 111/65 06/24/24 08:54 126/75 06/24/24 08:49 165/92 H 06/24/24 08:48 139/90 06/24/24 08:45 111 H 37 H 89 L 06/24/24 08:42 66/44 L 06/24/24 07:21 109 H 40 H 91 06/24/24 07:05 37.9 C H 118 H 25 H 141/96 H 82 L 06/24/24 07:00 90 06/24/24 03:41 37.5 C 73 32 H 132/73 94 06/24/24 03:30 68 18 92 O2 Del Method O2 Flow Rate FiO2 06/24/24 10:44 100 06/24/24 10:22 06/24/24 10:06 06/24/24 10:00 06/24/24 09:48 06/24/24 09:45 06/24/24 09:39 06/24/24 09:37 06/24/24 09:36 06/24/24 09:30 06/24/24 09:22 06/24/24 09:21 06/24/24 09:11 06/24/24 09:06 06/24/24 09:05 06/24/24 09:03 06/24/24 08:57 06/24/24 08:55 06/24/24 08:54 06/24/24 08:49 06/24/24 08:48 06/24/24 08:45 100 06/24/24 08:42 06/24/24 07:21 High Flow Nasal Cannula 40 100 06/24/24 07:05 High Flow Nasal Cannula 30 06/24/24 07:00 High Flow Nasal Cannula 40 100 06/24/24 03:41 High Flow Nasal Cannula 06/24/24 03:30 High Flow Nasal Cannula 30 60 Critical Care Results & Data Vital Signs (Past 12 Hours) Vital Signs Temp Pulse Pulse Resp BP BP Pulse Ox 06/24/24 10:44 101 H 35 H 93 06/24/24 10:22 95/58 L 06/24/24 10:06 110 H 36 H 90 06/24/24 10:00 109 H 35 H 91 06/24/24 09:48 107 H 36 H 92 06/24/24 09:45 100/62 06/24/24 09:39 100/68 06/24/24 09:37 101/70 06/24/24 09:36 115 H 34 H 93 06/24/24 09:30 109 H 33 H 93 06/24/24 09:22 135/57 L 06/24/24 09:21 109 H 35 H 111/76 94 06/24/24 09:11 110/73 06/24/24 09:06 106 H 27 H 118/71 90 06/24/24 09:05 99/61 L 06/24/24 09:03 89/60 L 06/24/24 08:57 124 H 27 H 96/64 L 90 06/24/24 08:55 111/65 06/24/24 08:54 126/75 06/24/24 08:49 165/92 H 06/24/24 08:48 139/90 06/24/24 08:45 111 H 37 H 89 L 06/24/24 08:42 66/44 L 06/24/24 07:21 109 H 40 H 91 06/24/24 07:05 37.9 C H 118 H 25 H 141/96 H 82 L 06/24/24 07:00 90 06/24/24 03:41 37.5 C 73 32 H 132/73 94 06/24/24 03:30 68 18 92 O2 Del Method O2 Flow Rate FiO2 06/24/24 10:44 100 06/24/24 10:22 06/24/24 10:06 06/24/24 10:00 06/24/24 09:48 06/24/24 09:45 06/24/24 09:39 06/24/24 09:37 06/24/24 09:36 06/24/24 09:30 06/24/24 09:22 06/24/24 09:21 06/24/24 09:11 06/24/24 09:06 06/24/24 09:05 06/24/24 09:03 06/24/24 08:57 06/24/24 08:55 06/24/24 08:54 06/24/24 08:49 06/24/24 08:48 06/24/24 08:45 100 06/24/24 08:42 06/24/24 07:21 High Flow Nasal Cannula 40 100 06/24/24 07:05 High Flow Nasal Cannula 30 06/24/24 07:00 High Flow Nasal Cannula 40 100 06/24/24 03:41 High Flow Nasal Cannula 06/24/24 03:30 High Flow Nasal Cannula 30 60 Lab & Micro Results (Past 24 Hours) RBC 4.18 M/uL (4.20-5.40) L 06/24/24 WBC 8.76 K/ul (4.8-10.8) 06/24/24 Hgb 12.6 g/dl (12.0-16.0) 06/24/24 Hct 39.3 % (37.0-47.0) 06/24/24 MCV 94.0 fL (80.0-100.0) 06/24/24 MCH 30.1 pg (25.0-34.0) 06/24/24 MCHC 32.1 g/dL (32.0-36.0) 06/24/24 RDW Standard Deviation 54.3 fL (36.4-46.3) H 06/24/24 RDW Coefficient of Variation 15.8 % (11.5-14.5) H 06/24/24 Plt Count 144 K/uL (130-400) 06/24/24 MPV 10.8 fL (9.4-12.4) 06/24/24 Na 149 mmol/L (136-145) H 06/24/24 K 3.9 mmol/L (3.5-5.1) 06/24/24 Cl 118 mmol/L (98-107) H 06/24/24 CO2 25 mmol/L (21-32) 06/24/24 Anion Gap 6 (3-11) 06/24/24 BUN 20 mg/dl (6-23) 06/24/24 Creatinine 0.59 mg/dl (0.6-1.2) L 06/24/24 Estimated GFR ( Amer) 106.1 ml/min 06/24/24 Estimated GFR (Non-Af Amer) 91.6 ml/min 06/24/24 BUN/Creatinine Ratio 33.9 (10-20) H 06/24/24 Glu 138 mg/dl (70-99(Fasting)) H 06/24/24 Ca 6.8 mg/dl (8.6-10.3) L 06/24/24 Phosphorus Level 1.7 mg/dl (2.5-4.9) L 06/24/24 AST 72 U/L (13-39) H 06/24/24 ALT 64 U/L (7-52) H 06/24/24 Mg 1.5 mg/dl (1.7-2.4) L 06/24/24 05:28 Calcium Level 6.8 mg/dl (8.6-10.3) L 06/24/24 05:28 Ahsan Test NA 06/24/24 09:29 Diagnostic Findings (Past 24 Hours) Chest X-Ray 06/24/24 07:00 XR chest 1V portable HISTORY: 74 years-old Female resp failure acute shortness of breath with respiratory failure COMPARISON: 06/23/2024 TECHNIQUE: AP view the chest FINDINGS: Loculated left-sided hydropneumothorax with pneumothorax component measuring up to 2.8 cm at the lung apex, increased from prior. The heart is upper limits of normal in size. Right IJ [id number] catheter is unchanged. And electronic device projects over the left heart border. Mixed interstitial and alveolar opacities have progressed. Small right pleural effusion and upper abdominal surgical clips. IMPRESSION: 1. Increased size of the loculated left-sided hydropneumothorax. 2. Progressive mixed interstitial and alveolar opacities of the lungs. ACT 112: Negative or not required by law. The above report was generated using voice recognition software. It may contain grammatical, syntax or spelling errors. Electronically signed by: Soham Kirby M.D. 06/24/2024 7:13 AM Chest X-Ray 06/24/24 09:24 XR chest 1V portable HISTORY: chest tube COMPARISON: Chest 06/24/2024. FINDINGS: Interval placement of a left-sided chest tube which terminates within the left upper hemithorax. Interval decrease in size in the now small left hydropneumothorax. No mediastinal shift. The heart is unenlarged. The endotracheal tube terminates 1.7 cm from the robert. A right jugular catheter terminates in the SVC. Nasogastric tube terminates below the diaphragm. The tip is not included on this study. The multifocal bilateral airspace opacities and a small right pleural effusion persist. There is diffuse interstitial thickening. IMPRESSION: 1. Interval decrease in size in the now small left hydropneumothorax status post left chest tube placement. 2. Additional satisfactory support line placement as described above. 3. Bilateral airspace opacities persist. ACT 112: Negative or not required by law. Electronically signed by: Noel Crenshaw M.D. 06/24/2024 9:58 AM I & O Totals 24 Hours 06/23/24 06/24/24 06/25/24 06:59 06:59 06:59 Intake Total 1995.5 / 1995.5 2920.500 / 2920.500 86.667 / 86.667 Output Total 3001 / 3001 2901 / 2901 Balance -1004.5 / -1004.5 19.500 / 19.500 86.667 / 86.667 Cumulative 06/19/24 17:30 thru 06/24/24 11:02 Intake Total 50515.283 Output Total 14668 Balance 4868.283 RT Ventilator Mngmt (Last Documented) Ventilator Ordered Settings Ventilator Support Mode Assist Control 06/24/24 10:44 Respiratory Rate 35 06/24/24 10:44 Ventilator Tidal Volume 350 06/24/24 10:44 Setting Minute Ventilation 12 06/24/24 10:44 Positive End Expiratory 8 06/24/24 10:44 Pressure Fraction of Inspired Oxygen 100 06/24/24 10:44 Ventilator - PT Measurements Respiratory Rate 35 Exhaled Tidal Volume 350 Minute Ventilation 12 Peak Inspiratory Airway 38 Pressure Plateau Pressure 30 Respiratory Cycle Inspiratory: 1:1.2 Expiratory Ratio Inspiratory Phase Time 0.72 End-Tidal CO2 26 Static Lung Compliance 15.91 Dynamic Lung Compliance 11.67 Normal Static Lung Compliance 42.00 Coding Level of Care Code 05094 CRITICAL CARE EA ADD 30M Diagnoses Septic shock A41.9; R65.21 COVID-19 U07.1 Encephalopathy G93.40 Pneumonia J18.9 Laterality: left Lung location: lower lobe of lung Pneumonia type: due to unspecified organism Diarrhea R19.7 ILD (interstitial lung disease) J84.9 Hypothyroidism E03.9 Chronic kidney disease N18.9 Chronic diastolic (congestive) heart failure I50.32 Pancreatic insufficiency K86.89 (4) Pneumonia Laterality: left Lung location: lower lobe of lung Pneumonia type: due to unspecified organism Qualified Code(s): J18.9 - Pneumonia, unspecified organism
[2024-06-24] MEDS ORDERED: fentaNYL BOLUS from BAG IV PRN (14:27)
--- NOTE | 2024-06-24 14:37 | Hospitalist Progress Note ---
Date of Service June 24, 2024 Assessment & Plan (1) Lethargy: Plan: 73-year-old female with past medical history significant for chronic pancreatitis, hyperlipidemia, hypothyroidism, secondary hyperparathyroidism of renal origin, history of hypoglycemia, COPD, complex sleep apnea syndrome, chronic diastolic CHF, CKD stage III, sick sinus syndrome status post pacemaker, mitral valve disorder, chronic venous insufficiency, history of renal disease, pulmonary hypertension, history of occlusion of left saphenous vein, GERD, status post partial gastrectomy ,postsurgical malabsorption, obstructive uropathy, osteoarthritis, restless leg syndrome, osteoporosis, dysgeusia, history of C. difficile, depression, KRYSTAL, history of kidney stones, gait disturbance ambulates with walker, lives alone was brought in because of confusion and lethargy and found to have COVID, UTI and pneumonia. Acute Metabolic encephalopathy- resolved Severe sepsis/Septic shock Acute hypoxic/hypercarbic respiratory failure COVID 19 Infection Multifocal Pneumonia Acute UTI Left Hydropneumothorax Patient's presents with confusion and lethargy. --CT head:No acute intracranial process or significant alteration from the prior examination with chronic underlying presumed age-related findings. --CTA chest shows dense consolidation involving the left lower lobe; consistent with pneumonia with suspected interval developing necrotizing process. No cavitation noted. Also has areas of consolidation involving the right lung. Bronchi on right and left side with complete opacification of segmental branches; likely represent aspiration or endobronchial secretions. --MRSA nares positive --CT abdomen and pelvis findings suggestive of jejunitis/enteritis. --Blood cultureno growth till date --Urine culture3 types of organism; all high counts Continue on meropenem, vancomycin, dexamethasone. plan for 7 day course Completed azithromycin course Appreciate hand molder meat help Restarted pressors as patient developed hypotension due to sedation Intubated on 06/24/2024 Appreciate critical care input S/P left chest tube placement on 06/24/2024 Prognosis is guarded Updated patient's family over the phone on 06/23 & 06/24/2024 Hypernatremia Continue gentle IV fluids Monitor sodium levels Sodium 150 today Obstipation Continue Bowel regimen Had bowel movements Jejunitis/enteritis Esophagitis Stool for C. difficile negative On antibiotics as above Continue PPI Hypokalemia Hypomagnesemia Hypophosphatemia Replete electrolytes and monitor Elevated troponin Demand Ischemia High sensitive troponin 134 and admission peaked to 405.5 and down trended Echocardiogram shows EF of 55-60%. Chronic diastolic CHF Monitor for volume overload IV Lasix as needed History of COPD/asthma/ILD/pulmonary hypertension Continue home inhalers Nebs as needed Obstructive sleep apnea Noncompliant with BiPAP Continue supplemental oxygen Hypothyroidism Continue levothyroxine Sick sinus syndrome Status post pacemaker GERD continue famotidine and PPI H/O C. difficile Recently in March had course of p.o. vancomycin Monitor for any diarrhea C.diff negative H/O Gastric bypass Continue home medications H/O Chronic pancreatitis Pancreatic insufficiency Malabsorption Continue home meds when able to take H/O mood/anxiety disorder Continue home meds when able to take Chronic pain Neuropathy On Pregabalin oxycodone as needed Minimize narcotics to avoid excess sedation H/O chronic headaches Possible tension headaches per neurology On Lamictal and Cymbalta Seems recently started on Ubrelvy CKD stage III Creatinine Stable Monitor H/O Hypotension Requiring midodrine during admission in December 2023 Monitor BP History of chronic nephrolithiasis Secondary hyperparathyroidism On Calcitriol and calcium supplementation Endocrinology follow-up Ambulate dysfunction Ambulates with a walker Continue PT/OT DVT prophylaxis Heparin SQ CODE STATUS To be readdressed Disposition To be determined Admission and Anticipated Discharge Date Admission Date: June 19, 2024 Subjective Patient is seen and examined at bedside Given worsening respiratory failure, pneumothorax patient was intubated this morning per patient's request Patient also had chest tube placement by critical care Updated patient's sister over the phone Developed hypotension due to sedation requiring pressors Review of Systems Review of Systems: Unobtainable due to endotracheal tube Physical Exam Physical Exam: Physical Exam: Vitals signs as noted above General Appearance:Obese, no apparent distress, + mechanically ventilated Head: normocephalic, Atraumatic Eyes: normal inspection, EOMI Neck: supple, Trachea midline Respiratory/Chest: Decreased breath sounds, + crackles, rhonchi, no accessory muscle use, +Chest Tube Cardiovascular: S1, S2, No murmur Abdomen/GI:Soft, non tender, bowel sounds present Extremities/Musculoskeletal:normal inspection, no edema Neurologic/Psych: Sedated and intubated Skin: normal color, warm Results & Data Results & Data Vital Signs (Past 12 Hours) Vital Signs Temp Pulse Pulse Resp BP BP Pulse Ox 06/24/24 10:44 101 H 35 H 93 06/24/24 10:22 95/58 L 06/24/24 10:06 110 H 36 H 90 06/24/24 10:00 109 H 35 H 91 06/24/24 09:48 107 H 36 H 92 06/24/24 09:45 100/62 06/24/24 09:39 100/68 06/24/24 09:37 101/70 06/24/24 09:36 115 H 34 H 93 06/24/24 09:30 109 H 33 H 93 06/24/24 09:22 135/57 L 06/24/24 09:21 109 H 35 H 111/76 94 06/24/24 09:11 110/73 06/24/24 09:06 106 H 27 H 118/71 90 06/24/24 09:05 99/61 L 06/24/24 09:03 89/60 L 06/24/24 08:57 124 H 27 H 96/64 L 90 06/24/24 08:55 111/65 06/24/24 08:54 126/75 06/24/24 08:49 165/92 H 06/24/24 08:48 139/90 06/24/24 08:45 111 H 37 H 89 L 06/24/24 08:42 66/44 L 06/24/24 07:21 109 H 40 H 91 06/24/24 07:05 37.9 C H 118 H 25 H 141/96 H 82 L 06/24/24 07:00 90 06/24/24 03:41 37.5 C 73 32 H 132/73 94 06/24/24 03:30 68 18 92 O2 Del Method O2 Flow Rate FiO2 06/24/24 10:44 100 06/24/24 10:22 06/24/24 10:06 06/24/24 10:00 06/24/24 09:48 06/24/24 09:45 06/24/24 09:39 06/24/24 09:37 06/24/24 09:36 06/24/24 09:30 06/24/24 09:22 06/24/24 09:21 06/24/24 09:11 06/24/24 09:06 06/24/24 09:05 06/24/24 09:03 06/24/24 08:57 06/24/24 08:55 06/24/24 08:54 06/24/24 08:49 06/24/24 08:48 06/24/24 08:45 100 06/24/24 08:42 06/24/24 07:21 High Flow Nasal Cannula 40 100 06/24/24 07:05 High Flow Nasal Cannula 30 06/24/24 07:00 High Flow Nasal Cannula 40 100 06/24/24 03:41 High Flow Nasal Cannula 06/24/24 03:30 High Flow Nasal Cannula 30 60 Laboratory Results Short CBC 06/24/24 Range/Units 05:28 WBC 8.76 (4.8-10.8) K/ul Hgb 12.6 (12.0-16.0) g/dl Hct 39.3 (37.0-47.0) % Plt Count 144 (130-400) K/uL BMP 06/24/24 05:28 Sodium 149 H Potassium 3.9 Chloride 118 H Carbon Dioxide 25 BUN 20 Creatinine 0.59 L Glucose 138 H Calcium 6.8 L Liver Function 06/24/24 Range/Units 05:28 AST 72 H (13-39) U/L ALT 64 H (7-52) U/L
[2024-06-24] MEDS: PHENYLEPHRINE/NSS 100 MG/250 ML BAG IV SCH (15:11)
[2024-06-24] MEDS: TUBE FEEDING WATER FLUSH GT SCH (15:11)
[2024-06-24] MEDS: fentaNYL citrate 2,500 MCG/250 ML BAG IV SCH (15:11)
[2024-06-24] MEDS: LACTATED RINGER'S 1,000 ML IV SCH (15:13)
[2024-06-24] MEDS: Concentrate Phenylephrine IV Infusion ONE (16:10)
[2024-06-24] MEDS ORDERED: MIDAZOLAM HCL 5 MG/ML 2ML VIAL IV ONE (16:28)
[2024-06-24] MEDS ORDERED: ETOMIDATE 2 MG/ML 20 ML VIAL IV ONE (16:28)
[2024-06-24] MEDS ORDERED: PHARMACY GLYCEMIC MGMT CONSULT PRN (17:41)
[2024-06-24] MEDS ORDERED: DEXTROSE 50% 50 ML SYRINGE IV PRN (18:30)
[2024-06-24] MEDS ORDERED: GLUCOSE 40% GEL 15 GM TUBE PO PRN (18:30)
[2024-06-24] MEDS ORDERED: GLUCAGON FOR INJ 1 MG VIAL IM PRN (18:30)
[2024-06-24] MEDS ORDERED: GLUCOSE 10 TAB/TUBE PO PRN (18:30)
[2024-06-24] MEDS: ICU ELECTROLYTE REPLACEMENT PROTOCOL SCH (18:30)
[2024-06-24] MEDS ORDERED: CARBOHYDRATES FOR HYPOGLYCEMIA PO PRN (18:30)
[2024-06-24] MEDS: THIAMINE HCL 100 MG in SYRINGE 9 ML IV SCH (18:31)
[2024-06-24] MEDS: PEPTAMEN INTENSE VHP 1.0 CAL 1,000 ML BAG OG SCH (18:35)
[2024-06-24] MEDS: INSULIN ASPART PER UNIT CHARGE SC SCH (18:40)
[2024-06-24] MEDS: ACETAMINOPHEN 500 MG TAB PO PRN (19:30)
[2024-06-24] MEDS: PANTOprazole 40 MG in SYRINGE BID IV SCH (21:15)
[2024-06-24] MEDS: FAMOTIDINE SUSP 20 MG/2.5 ML UDP NG SCH (21:16)
[2024-06-24] MEDS: DOCUSATE SODIUM SYRUP 100 MG/10 ML UDC GT SCH (21:16)
[2024-06-24] MEDS: HEPARIN SOD 5,000 UNIT/0.5 ML VIAL SQ SCH (21:16)
[2024-06-24 23:42] LABS: Appearance Urine Turbid (Clear); Bacteria Urine Automated 1+ (None Seen); Bilirubin Urine Negative (Negative); Blood Urine 2+ (Negative); Cast Urine Automated >20 /lpf (0-2); Color Urine Yellow; Glucose Urine UA Negative (Negative); Ketones Urine Negative (Negative); Leukocyte Esterase Urine 3+ (Negative); Nitrite Urine Negative (Negative); Protein Urine 2+ (Negative); RBC Urine Automated >20 /hpf (0-2); Specific Gravity Urine 1.016 (1.000-1.030); Urobilinogen Urine Negative (Negative); WBC Urine Automated >50 /hpf (0-5); pH Urine 5.5 (4.5-7.5)
[2024-06-25 04:38] LABS: iSTAT Art Bld Gas pCO2 Correct 34 mmHg (35-46); iSTAT Art Bld Gas pH Corrected 7.377 (7.35-7.45); iSTAT Arterial Blood Gas HCO3 20 meg/L (19-24); iSTAT Arterial Blood Gas pCO2 32 mmHg (35-46); iSTAT Arterial Blood Gas pO2 88 mmHg (80-95); iSTAT Arterial Blood Gas pO2 C 95; iSTAT Carbon Dioxide 20 mmol/L (24-31); iSTAT FiO2 45 %; iSTAT Hematocrit 37 % (37-47); iSTAT Hemoglobin 12.6 g/dl (12.0-16.0); iSTAT Potassium 4.6 mmol/L (3.3-5.0); iSTAT Site Art Line; iSTAT Sodium 151 mmol/L (135-144)
[2024-06-25 04:59] LABS: Hematocrit (blood only) 39.3 % (37.0-47.0); Hemoglobin 12.7 g/dl (12.0-16.0); Mean Corpuscular Hemoglobin 29.7 pg (25.0-34.0); Mean Corpuscular Hgb Conc 32.3 g/dL (32.0-36.0); Mean Corpuscular Volume 91.8 fL (80.0-100.0); Mean Platelet Volume 11.5 fL (9.4-12.4); Nucleated RBC # (auto) 0.05 K/uL (0.00-0.12); Nucleated RBC % (auto) 0.3 %; Platelet Count 243 K/uL (130-400); RDW Coefficient of Variation 15.3 % (11.5-14.5); RDW Standard Deviation 51.8 fL (36.4-46.3); Red Blood Count 4.28 M/uL (4.20-5.40); White Blood Count 14.49 K/ul (4.8-10.8)
[2024-06-25 05:10] LABS: BUN Creatinine Ratio 39.7 (10-20); Calcium 7.5 mg/dl (8.6-10.3); Creatinine Clr Calc Pharmacy 63.8 ml/min; Est GFR (African American) 95.4 ml/min; Est GFR (Non-African American) 82.3 ml/min; Magnesium 2.1 mg/dl (1.7-2.4); Phosphorus 3.6 mg/dl (2.5-4.9); Potassium 4.8 mmol/L (3.5-5.1)
[2024-06-25 05:15] LABS: INR 1.2 (0.9-1.1)
--- NOTE | 2024-06-25 07:13 | XRay Report ---
XR chest 1V portable HISTORY: 74 years-old Female Resp failure acute respiratory failure COMPARISON: 06/24/2024 TECHNIQUE: AP view of the chest FINDINGS: Endotracheal tube overlies the midline, 1.2 cm superior to the robert. Right IJ Hrowhl-l-Adww cathete r is unchanged. Enteric tube courses into the stomach. Upper abdominal surgical clips. The heart is enlarged. Unchanged small left-sided hydropneumothorax with left-sided chest tube. Incre asing amount of subcutaneous emphysema along the left lateral chest wall. Apical separation of the pl eura measures 5 mm. Unchanged right pleural effusion. Mixed interstitial and alveolar opacities are s table. IMPRESSION: 1. Lines and tubes as above. 2. Stable small left hydropneumothorax with left-sided chest tube in place. 3. No significant change of the mixed interstitial and alveolar opacities. ACT 112: Negative or not required by law. The above report was generated using voice recognition software. It may contain grammatical, syntax o r spelling errors. Electronically signed by: Soham Kirby M.D. 06/25/2024 7:11 AM
--- NOTE | 2024-06-25 08:58 | Critical Care Progress Note ---
Date of Service June 25, 2024 Assessment & Plan (1) Septic shock: (2) COVID-19: (3) Encephalopathy: (4) Pneumonia: (5) Diarrhea: (6) ILD (interstitial lung disease): (7) Hypothyroidism: (8) Chronic kidney disease: (9) Chronic diastolic (congestive) heart failure: (10) Pancreatic insufficiency: Plan Impression: 73 YOF with interstitial lung disease and restrictive PFTs and hypoxemic and hypercarbic respiratory failure admitted with COVID and superi mposed probable bacterial pneumonia. She was initially in the ICU on noninvasive positive pressure ventilation and transferred to the floor. She developed a pneumothorax which initially was stable but on 06/24/2024 had increased in size with the patient developing increasing respiratory distress. She was transferred to the ICU 06/24/2024 where chest tube was placed and she was intubated for hypoxemic hypercarbic respiratory failure. 24-hour events: Patient's Jhon-Synephrine has been weaned significantly. Her FiO2 is also improved. She remains sedated. Recommendations: Neuro -intubated. Continue propofol, fentanyl and as needed Versed. Neurologically intact prior to intubation Cardiac -hypotension, improved significantly from yesterday. Continue attempts to wean Jhon-Synephrine. Respiratory -hypoxemic respiratory failure secondary to COVID and probable bacterial pneumonia superimposed on restrictive lung disease and interstitial lung disease. She has developed a secondary pneumothorax. Chest tube has been placed with reexpansion of the lung, chest x-ray this morning demonstrates small apical pneumothorax. Continue tube while on mechanical ventilation.. She continues to manifest patchy bilateral parenchymal densities superimposed on underlying fibrotic lung disease. Cultures remain negative to date. Continue lung protective strategy. Prognosis guarded GI -continue bowel regiment. Continue tube feeding. On thiamine. RENAL/LYTES -initiate ICU electrolyte replacement protocol. Continue free water for hypernatremia -Cam catheter ENDO - glycemic protocol per ICU orders. Continue thyroid replacement HEME - No acute needs. Subcu heparin for DVT prophylaxis, increase to every 8 ID -COVID-19 pneumonitis superimposed on probable bacterial pneumonia. Currently D#6 Viridiana vancomycin azithromycin. Completed 5 days of azithromycin. Still persistently febrile. Check Fungitell and fungal blood cultures. Continue dexamethasone 6 mg for COVID pneumonitis. Given potential infectious etiologies, do not think the patient is a candidate for additional immune suppression. LINES/IV ACCESS - PIV, RT SCL Mediport, right femoral central venous catheter and right femoral arterial line Continue use of these lines DVT PROPHYLAXIS - SCDs, transition to subcu heparin The patient is critically ill with significant possibility of clinical deterioration and/or . No family is immediately available. A total of 47 minutes in critical care time exclusive of procedures was spent in evaluation management stabilization of this patient. Prognosis remains guarded Admission and Anticipated Discharge Date Admission Date: June 19, 2024 Subjective Patient is intubated and sedated. Discussed with bedside critical care nurse as well as on multidisciplinary rounds. No family available. Has been hemodynamically improved and vent settings have improved significantly Review of Systems Review of Systems: Unobtainable due to endotracheal tube Physical Exam Constitutional: WD/WN, vitals as above + mechanically ventilated Neck: trachea midline, no thyromegaly Respiratory: + tachypneic; no respiratory distress, n o labored breathing and no cough Auscultation: + crackles and + rhonchi; no wheezes Cardiovascular: RRR, no murmur, no edema Gastrointestinal (Abdomen): normal bowel sounds, soft, nontender, no hepatosplenomegaly Musculoskeletal: Extremities: extremities normal to inspection Skin: no rashes, warm and dry Lymphatic: no cervical lymphadenopathy Results & Data Results & Data Vital Signs (Past 12 Hours) Vital Signs Temp Pulse Resp BP Pulse Ox O2 Del Method FiO2 06/25/24 08:13 70 27 H 100 40 06/25/24 06:00 35 06/25/24 05:00 38.5 C H 76 30 H 119/62 98 Mechanical Vent 45 06/25/24 04:45 76 126/67 06/25/24 04:30 76 30 H 96 45 06/25/24 04:00 38.2 C H 73 30 H 121/85 99 Mechanical Vent 45 06/25/24 03:00 38.3 C H 72 30 H 121/85 99 Mechanical Vent 45 06/25/24 02:00 45 06/25/24 02:00 38.3 C H 72 30 H 127/71 100 Mechanical Vent 45 06/25/24 01:00 38.4 C H 73 30 H 128/74 96 Mechanical Vent 45 06/25/24 00:00 38.5 C H 72 30 H 127/74 99 Mechanical Vent 45 06/25/24 00:00 73 06/24/24 23:40 70 30 H 95 45 06/24/24 23:00 38.3 C H 73 30 H 124/71 100 Mechanical Vent 60 06/24/24 22:00 Mechanical Vent 60 Critical Care Results & Data Vital Signs (Past 12 Hours) Vital Signs Temp Pulse Resp BP Pulse Ox O2 Del Method FiO2 06/25/24 08:13 70 27 H 100 40 06/25/24 06:00 35 06/25/24 05:00 38.5 C H 76 30 H 119/62 98 Mechanical Vent 45 06/25/24 04:45 76 126/67 06/25/24 04:30 76 30 H 96 45 06/25/24 04:00 38.2 C H 73 30 H 121/85 99 Mechanical Vent 45 06/25/24 03:00 38.3 C H 72 30 H 121/85 99 Mechanical Vent 45 06/25/24 02:00 45 06/25/24 02:00 38.3 C H 72 30 H 127/71 100 Mechanical Vent 45 06/25/24 01:00 38.4 C H 73 30 H 128/74 96 Mechanical Vent 45 06/25/24 00:00 38.5 C H 72 30 H 127/74 99 Mechanical Vent 45 06/25/24 00:00 73 06/24/24 23:40 70 30 H 95 45 06/24/24 23:00 38.3 C H 73 30 H 124/71 100 Mechanical Vent 60 06/24/24 22:00 Mechanical Vent 60 Lab & Micro Results (Past 24 Hours) RBC 4.28 M/uL (4.20-5.40) 06/25/24 WBC 14.49 K/ul (4.8-10.8) H 06/25/24 Hgb 12.7 g/dl (12.0-16.0) 06/25/24 Hct 39.3 % (37.0-47.0) 06/25/24 MCV 91.8 fL (80.0-100.0) 06/25/24 MCH 29.7 pg (25.0-34.0) 06/25/24 MCHC 32.3 g/dL (32.0-36.0) 06/25/24 RDW Standard Deviation 51.8 fL (36.4-46.3) H 06/25/24 RDW Coefficient of Variation 15.3 % (11.5-14.5) H 06/25/24 Plt Count 243 K/uL (130-400) 06/25/24 MPV 11.5 fL (9.4-12.4) 06/25/24 Nucleated Red Blood Cells % (auto) 0.3 % 06/25 Nucleated RBC Absolute Count (auto) 0.05 K/uL (0.00-0.12) 0 06/25/24 Na 151 mmol/L (136-145) H 06/25/24 K 4.8 mmol/L (3.5-5.1) 06/25/24 Cl 121 mmol/L (98-107) H 06/25/24 CO2 21 mmol/L (21-32) 06/25/24 Anion Gap 9 (3-11) 06/25/24 BUN 29 mg/dl (6-23) H 06/25/24 Creatinine 0.73 mg/dl (0.6-1.2) 06/25/24 Estimated GFR ( Amer) 95.4 ml/min 06/25/24 Estimated GFR (Non-Af Amer) 82.3 ml/min 06/25/24 BUN/Creatinine Ratio 39.7 (10-20) H 06/25/24 Glu 161 mg/dl (70-99(Fasting)) H 06/25/24 Ca 7.5 mg/dl (8.6-10.3) L 06/25/24 Phosphorus Level 3.6 mg/dl (2.5-4.9) 06/25/24 Mg 2.1 mg/dl (1.7-2.4) 06/25/24 04:37 Calcium Level 7.5 mg/dl (8.6-10.3) L 06/25/24 04:37 Prothromb Time International Ratio 1.2 (0.9-1.1) H 06/25/24 04 :37 Ahsan Test NA 06/25/24 04:22 Microbiology 06/24/24 15:20 Gram Stain - Final Sputum,Vent Suction 06/19/24 18:57 Aerobic Blood Culture - Final Blood No growth in Aerobic bottle after 5 days. Anaerobic Blood Culture - Final No growth in Anaerobic bottle after 5 days. Diagnostic Findings (Past 24 Hours) Chest X-Ray 06/24/24 09:24 XR chest 1V portable HISTORY: chest tube COMPARISON: Chest 06/24/2024. FINDINGS: Interval placement of a left-sided chest tube which terminates within the left upper hemithorax. Interval decrease in size in the now small left hydropneumothorax. No mediastinal shift. The heart is unenlarged. The endotracheal tube terminates 1.7 cm from the robert. A right jugular catheter terminates in the SVC. Nasogastric tube terminates below the diaphragm. The tip is not included on this study. The multifocal bilateral airspace opacities and a small right pleural effusion persist. There is diffuse interstitial thickening. IMPRESSION: 1. Interval decrease in size in the now small left hydropneumothorax status post left chest tube placement. 2. Additional satisfactory support line placement as described above. 3. Bilateral airspace opacities persist. ACT 112: Negative or not required by law. Electronically signed by: Noel Crenshaw M.D. 06/24/2024 9:58 AM Chest X-Ray 06/25/24 07:00 XR chest 1V portable HISTORY: 74 years-old Female Resp failure acute respiratory failure COMPARISON: 06/24/2024 TECHNIQUE: AP view of the chest FINDINGS: Endotracheal tube overlies the midline, 1.2 cm superior to the robert. Right IJ Vhpllz-q-Jakv catheter is unchanged. Enteric tube courses into the stomach. Upper abdominal surgical clips. The heart is enlarged. Unchanged small left-sided hydropneumothorax with left- sided chest tube. Increasing amount of subcutaneous emphysema along the left lateral chest wall. Apical separation of the pleura measures 5 mm. Unchanged right pleural effusion. Mixed interstitial and alveolar opacities are stable. IMPRESSION: 1. Lines and tubes as above. 2. Stable small left hydropneumothorax with left-sided chest tube in place. 3. No significant change of the mixed interstitial and alveolar opacities. ACT 112: Negative or not required by law. The above report was generated using voice recognition software. It may contain grammatical, syntax or spelling errors. Electronically signed by: Soham Kirby M.D. 06/25/2024 7:11 AM I & O Totals 24 Hours 06/24/24 06/25/24 06/26/24 06:59 06:59 06:59 Intake Total 2920.500 / 2920.500 3789.592 / 3789.592 147.743 / 147.743 Output Total 2901 / 2901 1600 / 1600 Balance 19.500 / 19.500 2189.592 / 2189.592 147.743 / 147.743 Cumulative 06/19/24 17:30 thru 06/25/24 07:13 Intake Total 26294.951 Output Total 23068 Balance 7118.951 RT Ventilator Mngmt (Last Documented) Ventilator Ordered Settings Ventilator Support Mode Assist Control 06/25/24 08:13 Respiratory Rate 27 06/25/24 08:13 Ventilator Tidal Volume 350 06/25/24 08:13 Setting Minute Ventilation 9.4 06/25/24 08:13 Positive End Expiratory 5 06/25/24 08:13 Pressure Fraction of Inspired Oxygen 40 06/25/24 08:13 Machine Comment changes made by previous shift 06/25/24 08:13 post ABG Ventilator - PT Measurements Respiratory Rate 27 Exhaled Tidal Volume 350 Minute Ventilation 9.4 Peak Inspiratory Airway 23 Pressure Plateau Pressure 24.9 Respiratory Cycle Inspiratory: 1:1.9 Expiratory Ratio Inspiratory Phase Time 0.7 End-Tidal CO2 27 Static Lung Compliance 17.59 Dynamic Lung Compliance 19.44 Normal Static Lung Compliance 45.00 Coding Level of Care Code 09722 CRITICAL CARE 1ST 30-74M Diagnoses Septic shock A41.9; R65.21 COVID-19 U07.1 Encephalopathy G93.40 Pneumonia J18.9 Laterality: left Lung location: lower lobe of lung Pneumonia type: due to unspecified organism Diarrhea R19.7 ILD (interstitial lung disease) J84.9 Hypothyroidism E03.9 Chronic kidney disease N18.9 Chronic diastolic (congestive) heart failure I50.32 Pancreatic insufficiency K86.89 (4) Pneumonia Laterality: left Lung location: lower lobe of lung Pneumonia type: due to unspecified organism Qualified Code(s): J18.9 - Pneumonia, unspecified organism
--- NOTE | 2024-06-25 11:50 | Pharmacy Report ---
Pharmacy PK ABX Note - Date of Service June 25, 2024 - Assessment and Plan Assessment 06/25 * SCr w slight bump today, but not dissimilar to previous. Random level associated with therapeutic AUC. No change. 06/22 * 73 year old F receiving VANCOMYCIN + MEROPENEM + AZITHROMYCIN for treatment of septic shock likely from pulmonary +/- urinary source. * Pertinent microbiologic data includes: Positive MRSA Nasal Swab, resp BioFire + COVID19, BLCX no growth to date, UA did not show pyuria, UCx showed likely contamination * Day # 4 of antimicrobial therapy (planned 7 day course of vancomycin/meropenem per [employer]) * Continuing to show slow improvement per Provider assessment. Renal fxn stable Plan Vancomycin * Random vancomycin level drawn this afternoon = 20.7 * Continue 1500mg IV every 24 hours. * Regimen is predicted to achieve target AUC/JOSE MIGUEL of 400-600 mg/L.hr * No additional levels unless therapy is extended beyond 7 days or if renal function changes Pharmacy will continue to follow and will adjust dose/frequency as necessary. Thank you. Pharmacy has transitioned to AUC monitoring for vancomycin. AUC/JOSE MIGUEL is the preferred PK/PD target and is associated with decreased risk of nephrotoxicity compared to traditional trough targets.
--- NOTE | 2024-06-25 14:50 | Pharmacy Report ---
Pharmacy Glycemic Short Note 2 - Date of Service June 25, 2024 - Glycemic Short BSG Results (Last 24 hours): 06/24/24 06/24/24 06/25/24 17:38 23:56 04:37 Glucose 161 H POC Glucose 153 H POC Glucose (other) 201 H 06/25/24 05:49 Glucose POC Glucose 134 H POC Glucose (other) OUTPATIENT ANTIDIABETIC REGIMEN: * none * HbA1c 5.6%(05/29/23) repeat pending (06/26/24) ASSESSMENT: * Liz is a 74 YOF admitted with sepsis/COVID 19/multifocal pneumonia/hydropneumothroax currently ICU status and intubated/sedated. No history of diabetes noted, although pancreatic insufficiency noted treated with Creon at home. * BSGs trended up yesterday potentially due to severity of infection/steroid administration. She was also started on Peptamen Intense trickle tube feeds yesterday. She also continues to receive dexamethasone 6mg IV daily for Covid infection. * Novolog with a correction factor initiated yesterday, BSGs better controlled, continue. Hold basal as BSGs are not warranting at this time. PLAN FOR INPATIENT GLYCEMIC CONTROL: * Basal insulin * Hold * Bolus insulin * NovoLog per scale ACHS or Q6hrs while NPO * Goal Range: Low 110 mg/dL - High 180 mg/dL * Correction Factor: 35 mg/dL/unit * Nutritional / Prandial insulin per carb ratio of 1 unit per NONE grams CHO consumed
--- NOTE | 2024-06-25 15:42 | Hospitalist Progress Note ---
Date of Service June 25, 2024 Assessment & Plan (1) Lethargy: Plan: 73-year-old female with past medical history significant for chronic pancreatitis, hyperlipidemia, hypothyroidism, secondary hyperparathyroidism of renal origin, history of hypoglycemia, COPD, complex sleep apnea syndrome, chronic diastolic CHF, CKD stage III, sick sinus syndrome status post pacemaker, mitral valve disorder, chronic venous insufficiency, history of renal disease, pulmonary hypertension, history of occlusion of left saphenous vein, GERD, status post partial gastrectomy ,postsurgical malabsorption, obstructive uropathy, osteoarthritis, restless leg syndrome, osteoporosis, dysgeusia, history of C. difficile, depression, KRYSTAL, history of kidney stones, gait disturbance ambulates with walker, lives alone was brought in because of confusion and lethargy and found to have COVID, UTI and pneumonia. Acute Metabolic encephalopathy- resolved Severe sepsis/Septic shock Acute hypoxic/hypercarbic respiratory failure COVID 19 Infection Multifocal Pneumonia Acute UTI Left Hydropneumothorax Patient's presents with confusion and lethargy. --CT head:No acute intracranial process or significant alteration from the prior examination with chronic underlying presumed age-related findings. --CTA chest shows dense consolidation involving the left lower lobe; consistent with pneumonia with suspected interval developing necrotizing process. No cavitation noted. Also has areas of consolidation involving the right lung. Bronchi on right and left side with complete opacification of segmental branches; likely represent aspiration or endobronchial secretions. --MRSA nares positive --CT abdomen and pelvis findings suggestive of jejunitis/enteritis. --Blood cultureno growth till date --Urine culture3 types of organism; all high counts -Repeat cultures pending Continue on meropenem, vancomycin, dexamethasone. plan for 7 day course Completed azithromycin course Wean off of pressors as able Intubated on 06/24/2024 Appreciate critical care input S/P left chest tube placement on 06/24/2024 Prognosis is guarded Updated patient's family over the phone on multiple occasions Vent management as per critical care team Started on tube feeds Hypernatremia Continue gentle IV fluids Monitor sodium levels Sodium 151 today Added free water Obstipation Continue Bowel regimen Had bowel movements Jejunitis/enteritis Esophagitis Stool for C. difficile negative On antibiotics as above Continue PPI Hypokalemia Hypomagnesemia Hypophosphatemia Replete electrolytes and monitor Elevated troponin Demand Ischemia High sensitive troponin 134 and admission peaked to 405.5 and down trended Echocardiogram shows EF of 55-60%. Chronic diastolic CHF Monitor for volume overload IV Lasix as needed History of COPD/asthma/ILD/pulmonary hypertension Continue home inhalers Nebs as needed Obstructive sleep apnea Noncompliant with BiPAP Continue supplemental oxygen Hypothyroidism Continue levothyroxine Sick sinus syndrome Status post pacemaker GERD continue famotidine and PPI H/O C. difficile Recently in March had course of p.o. vancomycin Monitor for any diarrhea C.diff negative H/O Gastric bypass Continue home medications H/O Chronic pancreatitis Pancreatic insufficiency Malabsorption Continue home meds when able to take H/O mood/anxiety disorder Continue home meds when able to take Chronic pain Neuropathy On Pregabalin oxycodone as needed Minimize narcotics to avoid excess sedation H/O chronic headaches Possible tension headaches per neurology On Lamictal and Cymbalta Seems recently started on Ubrelvy CKD stage III Creatinine Stable Monitor H/O Hypotension Requiring midodrine during admission in December 2023 Monitor BP History of chronic nephrolithiasis Secondary hyperparathyroidism On Calcitriol and calcium supplementation Endocrinology follow-up Ambulate dysfunction Ambulates with a walker Continue PT/OT DVT prophylaxis Heparin SQ Disposition To be determined Admission and Anticipated Discharge Date Admission Date: June 19, 2024 Subjective Patient is seen and examined at bedside Remains sedated and intubated Febrile today Cultures pending Vent settings improving Plan to wean off pressors as able Review of Systems Review of Systems: Unobtainable due to endotracheal tube Physical Exam Physical Exam: Physical Exam: Vitals signs as noted above General Appearance:Obese, no apparent distress, + mechanically ventilated Head: normocephalic, Atraumatic Eyes: normal inspection, EOMI Neck: supple, Trachea midline Respiratory/Chest: Decreased breath sounds, + crackles, rhonchi, no accessory muscle use, +Chest Tube Cardiovascular: S1, S2, No murmur Abdomen/GI:Soft, non tender, bowel sounds present Extremities/Musculoskeletal:normal inspection, no edema Neurologic/Psych: Sedated and intubated Skin: normal color, warm Results & Data Results & Data Vital Signs (Past 12 Hours) Vital Signs Temp Pulse Resp BP Pulse Ox O2 Del Method FiO2 06/25/24 14:30 69 26 H 100 35 06/25/24 14:00 40 06/25/24 12:48 38.2 C H 76 23 97 06/25/24 12:45 114/71 06/25/24 12:45 114/71 06/25/24 12:45 114/71 06/25/24 12:42 38.2 C H 73 23 97 06/25/24 12:33 38.2 C H 74 23 96 06/25/24 12:18 38.2 C H 71 23 97 06/25/24 12:00 38.2 C H 76 23 98 06/25/24 11:48 38.2 C H 73 23 98 06/25/24 11:45 109/69 06/25/24 11:45 109/69 06/25/24 11:39 38.2 C H 75 23 98 06/25/24 11:18 38.2 C H 77 23 97 06/25/24 11:03 38.2 C H 79 23 97 06/25/24 10:45 38.2 C H 79 23 97 06/25/24 10:45 114/75 06/25/24 10:45 114/75 06/25/24 10:43 72 27 H 99 35 06/25/24 10:42 38.2 C H 79 23 97 06/25/24 10:21 38.3 C H 75 23 98 06/25/24 10:12 38.3 C H 72 23 99 Mechanical Vent 0.4 06/25/24 09:56 40 06/25/24 09:51 38.3 C H 73 23 99 06/25/24 09:45 117/76 06/25/24 09:36 38.3 C H 71 23 98 06/25/24 09:30 38.3 C H 73 23 99 06/25/24 09:15 38.3 C H 73 22 98 06/25/24 09:03 38.3 C H 65 26 H 97 06/25/24 08:48 38.3 C H 75 26 H 98 06/25/24 08:45 114/74 06/25/24 08:45 114/74 06/25/24 08:13 70 27 H 100 40 06/25/24 08:12 38.4 C H 77 26 H 97 Mechanical Vent 0.4 06/25/24 07:59 Mechanical Vent 0.45 06/25/24 07:51 38.4 C H 73 26 H 99 06/25/24 07:45 122/79 06/25/24 07:42 38.4 C H 73 26 H 100 06/25/24 07:33 38.4 C H 72 27 H 99 06/25/24 07:15 38.4 C H 76 26 H 100 06/25/24 07:09 38.4 C H 77 26 H 99 06/25/24 06:00 35 06/25/24 05:00 38.5 C H 76 30 H 119/62 98 Mechanical Vent 45 06/25/24 04:45 76 126/67 06/25/24 04:30 76 30 H 96 45 06/25/24 04:00 38.2 C H 73 30 H 121/85 99 Mechanical Vent 45 Laboratory Results Short CBC 06/25/24 Range/Units 04:37 WBC 14.49 H (4.8-10.8) K/ul Hgb 12.7 (12.0-16.0) g/dl Hct 39.3 (37.0-47.0) % Plt Count 243 D (130-400) K/uL BMP 06/25/24 04:37 Sodium 151 H Potassium 4.8 D Chloride 121 H Carbon Dioxide 21 BUN 29 H Creatinine 0.73 Glucose 161 H Calcium 7.5 L Urine 06/24/24 Range/Units Unknown Urine Color Yellow Urine Appearance Turbid A (Clear) Urine pH 5.5 (4.5-7.5) Ur Specific [place] 1.016 (1.000-1.030) Urine Protein 2+ H (Negative) Urine Glucose (UA) Negative (Negative)
[2024-06-25] MEDS: HEPARIN SOD 5,000 UNIT/0.5 ML VIAL SQ SCH (15:57)
[2024-06-26 04:57] LABS: Hematocrit (blood only) 31.8 % (37.0-47.0); Hemoglobin 10.5 g/dl (12.0-16.0); Mean Corpuscular Hemoglobin 30.3 pg (25.0-34.0); Mean Corpuscular Volume 91.9 fL (80.0-100.0); Mean Platelet Volume 11.8 fL (9.4-12.4); Nucleated RBC # (auto) 0.05 K/uL (0.00-0.12); Nucleated RBC % (auto) 0.6 %; Platelet Count 180 K/uL (130-400); RDW Coefficient of Variation 14.7 % (11.5-14.5); Red Blood Count 3.46 M/uL (4.20-5.40); White Blood Count 8.16 K/ul (4.8-10.8)
[2024-06-26 05:03] LABS: BUN Creatinine Ratio 44.4 (10-20); Calcium 7.3 mg/dl (8.6-10.3); Creatinine Clr Calc Pharmacy 74.5 ml/min; Est GFR (African American) 103.9 ml/min; Est GFR (Non-African American) 89.6 ml/min; Magnesium 1.8 mg/dl (1.7-2.4); Phosphorus 2.3 mg/dl (2.5-4.9); Potassium 4.4 mmol/L (3.5-5.1)
[2024-06-26 05:09] LABS: iSTAT Allen Test Pass; iSTAT Art Bld Gas pCO2 Correct 36 mmHg (35-46); iSTAT Art Bld Gas pH Corrected 7.398 (7.35-7.45); iSTAT Arterial Blood Gas HCO3 22 meg/L (19-24); iSTAT Arterial Blood Gas pCO2 36 mmHg (35-46); iSTAT Arterial Blood Gas pO2 155 mmHg (80-95); iSTAT Arterial Blood Gas pO2 C 155; iSTAT Carbon Dioxide 23 mmol/L (24-31); iSTAT FiO2 35 %; iSTAT Hematocrit 30 % (37-47); iSTAT Hemoglobin 10.2 g/dl (12.0-16.0); iSTAT Potassium 4.3 mmol/L (3.3-5.0); iSTAT Site Art Line; iSTAT Sodium 147 mmol/L (135-144)
[2024-06-26 05:15] LABS: ALC (manual) 0.16 K/uL (1.2-3.4); ANC (manual) 7.67 K/uL (1.4-6.5); Basophils # (manual) 0.08 K/uL (0-0.2); Basophils % (manual) 1 %; Lymphocytes # (manual) 0.16 K/uL (1.2-3.4); Lymphocytes % (manual) 2 %; Monocytes # (manual) 0.24 K/uL (0.11-0.59); Monocytes % (manual) 3 %; Neutrophils # (manual) 7.67 K/uL (1.40-6.50); Neutrophils % (manual) 94 %; RBC Morphology Unremarkable
[2024-06-26] MEDS ORDERED: SODIUM PHOSPHATE 3 MMOL/1 ML INFUSION IV STA (05:21)
[2024-06-26] MEDS: MAGNESIUM SULFATE / D5W 1 GM/100 ML BAG IV SCH (05:46)
[2024-06-26] MEDS: SODIUM PHOSPHATE 15 MMOL in SODIUM CHLORIDE 0.9% 250 ML IV ONE (05:48)
[2024-06-26 07:24] LABS: Estimated Average Glucose 120 mg/dl; Hemoglobin A1C 5.8 % (4.5-5.6)
--- NOTE | 2024-06-26 07:31 | XRay Report ---
XR chest 1V portable CLINICAL HISTORY: Respiratory failure. COMPARISON STUDY: Chest radiograph June 25, 2024. Chest CT June 19, 2024. FINDINGS: Tip of endotracheal tube is just above the robert. The tube could be withdrawn 2 cm. Right internal jugular Ndzzig-[id number]-Unrl remains in place. Tip of nasogastric tube is below the lower aspect of this image but at least within the body of the stomach. A left chest tube remains in place. A small left pneumothorax has decreased in size. Superior pleural separation measures 3 mm. There is equivoca l small right apical pneumothorax. Bilateral airspace opacities and interstitial thickening persists. Cardiomegaly is again noted. IMPRESSION: 1. Tip of endotracheal tube just above the robert. The tube could be withdrawn 2 cm. 2. Left chest tube in place. Decrease in size of a small left pneumothorax. 3. Equivocal small right apical pneumothorax. This is likely artifactual. Short-term radiographic fol low-up is recommended. 4. Persistent bilateral airspace opacities suggestive of multifocal pneumonia. ACT 112: Negative or not required by law. Electronically signed by: Mehrdad Torre M.D. 06/26/2024 7:29 AM
--- NOTE | 2024-06-26 08:12 | Critical Care Progress Note ---
Date of Service June 26, 2024 Assessment & Plan (1) Septic shock: (2) COVID-19: (3) Encephalopathy: (4) Pneumonia: (5) Diarrhea: (6) ILD (interstitial lung disease): (7) Hypothyroidism: (8) Chronic kidney disease: (9) Chronic diastolic (congestive) heart failure: (10) Pancreatic insufficiency: Plan Impression: 73 YOF with interstitial lung disease and restrictive PFTs and hypoxemic and hypercarbic respiratory failure admitted with COVID and superi mposed probable bacterial pneumonia. She was initially in the ICU on noninvasive positive pressure ventilation and transferred to the floor. She developed a pneumothorax which initially was stable but on 06/24/2024 had increased in size with the patient developing increasing respiratory distress. She was transferred to the ICU 06/24/2024 where chest tube was placed and she was intubated for hypoxemic hypercarbic respiratory failure. 24-hour events: Patient is made significant progress over the last 24 hours. Her FiO2 was down to 0.3. Jhon-Synephrine has been weaned to off. Recommendations: Neuro -intubated. Currently on propofol, fentanyl and as needed Versed. Neurologically intact prior to intubation. Will pursue sedation break this morning to assess for potential vent liberation Cardiac -hypotension, improved significantly from yesterday. Now off pressors Respiratory -hypoxemic respiratory failure secondary to COVID and probable bacterial pneumonia superimposed on restrictive lung disease and interstitial lung disease. She has developed a secondary pneumothorax. Chest tube has been placed with reexpansion of the lung, chest x-ray this morning demonstrates small apical pneumothorax. Continue tube while on mechanical ventilation. She continues to manifest patchy bilateral parenchymal densities superimposed on underlying fibrotic lung disease. Cultures remain negative to date. Continue lung protective strategy. Will consider SBT with sedation break to assess for ventilator liberation. GI -continue bowel regiment. Hold tube feeding for SBT. Continue thiamine. RENAL/LYTES -initiate ICU electrolyte replacement protocol. Continue free water for hypernatremia -Cam catheter ENDO - glycemic protocol per ICU orders. Continue thyroid replacement HEME - No acute needs. Subcu heparin for DVT prophylaxis, increase to every 8 ID -COVID-19 pneumonitis superimposed on probable bacterial pneumonia. Currently D#7 Viridiana vancomycin azithromycin. Completed 5 days of azithromycin. Discontinue antibiotics at this point in time. Fever curve resolved over the last 24 hours. Pending Fungitell and fungal blood cultures. Continue dexamethasone 6 mg for COVID pneumonitis. Given potential infectious etiologies, do not think the patient is a candidate for additional immune suppression. LINES/IV ACCESS - PIV, RT SCL Mediport, right femoral central venous catheter and right femoral arterial line. If remains hemodynamically stable can discontinue arterial line. DVT PROPHYLAXIS - SCDs, subcu heparin The patient is critically ill with significant possibility of clinical deterioration and/or . No family is immediately available. A total of 41 minutes in critical care time exclusive of procedures was spent in evaluation management stabilization of this patient. Prognosis remains guarded Admission and Anticipated Discharge Date Admission Date: June 19, 2024 Subjective Patient seen and examined. EMR reviewed. Discussed with bedside critical care nurse and on multidisciplinary rounds. Patient remains intubated and sedated. Review of Systems Review of Systems: Unobtainable due to endotracheal tube Physical Exam Constitutional: WD/WN, vitals as above + mechanically ventilated Neck: trachea midline, no thyromegaly Respiratory: + tachypneic; no respiratory distress, n o labored breathing and no cough Auscultation: + crackles and + rhonchi; no wheezes Cardiovascular: RRR, no murmur, no edema Gastrointestinal (Abdomen): normal bowel sounds, soft, nontender, no hepatosplenomegaly Musculoskeletal: Extremities: extremities normal to inspection Skin: no rashes, warm and dry Lymphatic: no cervical lymphadenopathy Results & Data Results & Data Vital Signs (Past 12 Hours) Vital Signs Temp Pulse Resp BP Pulse Ox FiO2 06/26/24 07:24 70 06/26/24 05:30 100/64 06/26/24 05:30 100/64 06/26/24 05:30 100/64 06/26/24 05:30 100/64 06/26/24 05:30 37.0 C 67 26 H 96 06/26/24 05:09 37.0 C 69 26 H 95 35 06/26/24 05:00 113/64 06/26/24 04:39 36.8 C 70 23 96 06/26/24 04:30 114/66 06/26/24 04:15 72 27 H 94 30 06/26/24 04:00 37.0 C 77 21 98 06/26/24 04:00 106/06/26/24 04:00 106/06/26/24 04:00 106/67 06/26/24 04:00 67 102/53 L 06/26/24 03:36 36.9 C 69 23 98 06/26/24 03:03 36.9 C 75 23 98 35 06/26/24 03:00 107/70 06/26/24 02:57 37.1 C 72 23 98 06/26/24 02:39 37.1 C 67 23 97 35 06/26/24 02:00 35 06/26/24 01:51 37.3 C 78 23 97 06/26/24 01:00 97/57 L 06/26/24 01:00 37.3 C 72 26 H 95 35 06/26/24 00:42 37.2 C 73 21 96 06/26/24 00:30 100/65 06/26/24 00:27 37.3 C 78 26 H 97 06/26/24 00:06 37.3 C 82 27 H 96 35 06/26/24 00:00 112/68 06/26/24 00:00 73 06/26/24 00:00 72 101/54 L 06/25/24 23:51 37.4 C 80 26 H 96 06/25/24 23:33 37.4 C 80 26 H 94 06/25/24 23:30 93/57 L 06/25/24 23:27 37.4 C 77 26 H 94 06/25/24 23:05 81 33 H 100 35 06/25/24 23:03 37.5 C 80 26 H 93 35 06/25/24 23:00 96/65 L 06/25/24 22:33 37.6 C H 80 26 H 94 06/25/24 22:00 37.6 C H 75 26 H 94 35 06/25/24 22:00 35 06/25/24 21:45 101/61 06/25/24 21:45 37.6 C H 78 26 H 93 06/25/24 21:33 37.6 C H 75 26 H 93 06/25/24 21:12 37.6 C H 80 26 H 94 06/25/24 20:45 110/76 06/25/24 20:39 37.7 C H 81 27 H 94 06/25/24 20:30 37.7 C H 76 27 H 96 Critical Care Results & Data Vital Signs (Past 12 Hours) Vital Signs Temp Pulse Resp BP Pulse Ox FiO2 06/26/24 07:24 70 06/26/24 05:30 100/64 06/26/24 05:30 100/64 06/26/24 05:30 100/64 06/26/24 05:30 100/64 06/26/24 05:30 37.0 C 67 26 H 96 06/26/24 05:09 37.0 C 69 26 H 95 35 06/26/24 05:00 113/64 06/26/24 04:39 36.8 C 70 23 96 06/26/24 04:30 114/66 06/26/24 04:15 72 27 H 94 30 06/26/24 04:00 37.0 C 77 21 98 06/26/24 04:00 106/67 06/26/24 04:00 106/67 06/26/24 04:00 106/67 06/26/24 04:00 67 102/53 L 06/26/24 03:36 36.9 C 69 23 98 06/26/24 03:03 36.9 C 75 23 98 35 06/26/24 03:00 107/70 06/26/24 02:57 37.1 C 72 23 98 06/26/24 02:39 37.1 C 67 23 97 35 06/26/24 02:00 35 06/26/24 01:51 37.3 C 78 23 97 06/26/24 01:00 97/57 L 06/26/24 01:00 37.3 C 72 26 H 95 35 06/26/24 00:42 37.2 C 73 21 96 06/26/24 00:30 100/65 06/26/24 00:27 37.3 C 78 26 H 97 06/26/24 00:06 37.3 C 82 27 H 96 35 06/26/24 00:00 112/68 06/26/24 00:00 73 06/26/24 00:00 72 101/54 L 06/25/24 23:51 37.4 C 80 26 H 96 06/25/24 23:33 37.4 C 80 26 H 94 06/25/24 23:30 93/57 L 06/25/24 23:27 37.4 C 77 26 H 94 06/25/24 23:05 81 33 H 100 35 06/25/24 23:03 37.5 C 80 26 H 93 35 06/25/24 23:00 96/65 L 06/25/24 22:33 37.6 C H 80 26 H 94 06/25/24 22:00 37.6 C H 75 26 H 94 35 06/25/24 22:00 35 06/25/24 21:45 101/61 06/25/24 21:45 37.6 C H 78 26 H 93 06/25/24 21:33 37.6 C H 75 26 H 93 06/25/24 21:12 37.6 C H 80 26 H 94 06/25/24 20:45 110/76 06/25/24 20:39 37.7 C H 81 27 H 94 06/25/24 20:30 37.7 C H 76 27 H 96 Lab & Micro Results (Past 24 Hours) RBC 3.46 M/uL (4.20-5.40) L 06/26/24 WBC 8.16 K/ul (4.8-10.8) 06/26/24 Hgb 10.5 g/dl (12.0-16.0) L 06/26/24 Hct 31.8 % (37.0-47.0) L 06/26/24 MCV 91.9 fL (80.0-100.0) 06/26/24 MCH 30.3 pg (25.0-34.0) 06/26/24 MCHC 33.0 g/dL (32.0-36.0) 06/26/24 RDW Standard Deviation 50.0 fL (36.4-46.3) H 06/26/24 RDW Coefficient of Variation 14.7 % (11.5-14.5) H 06/26/24 Plt Count 180 K/uL (130-400) 06/26/24 MPV 11.8 fL (9.4-12.4) 06/26/24 Nucleated Red Blood Cells % (auto) 0.6 % 06/26 Nucleated RBC Absolute Count (auto) 0.05 K/uL (0.00-0.12) 0 06/26/24 ANC 7.67 K/uL (1.4-6.5) H 06/26/24 ALC 0.16 K/uL (1.2-3.4) L 06/26/24 Neutrophils % (Manual) 94 % 06/26/24 Lymphocytes % (Manual) 2 % 06/26/24 Monocytes % (Manual) 3 % 06/26/24 Basophils % (Manual) 1 % 06/26/24 Neutrophils # (Manual) 7.67 K/uL (1.40-6.50) H 06/26/24 Lymphocytes # (Manual) 0.16 K/uL (1.2-3.4) L 06/26/24 Monocytes # (Manual) 0.24 K/uL (0.11-0.59) 06/26/24 Basophils # (Manual) 0.08 K/uL (0-0.2) 06/26/24 Red Blood Cell Morphology Unremarkable 06/26/24 Na 146 mmol/L (136-145) H 06/26/24 K 4.4 mmol/L (3.5-5.1) 06/26/24 Cl 118 mmol/L (98-107) H 06/26/24 CO2 23 mmol/L (21-32) 06/26/24 Anion Gap 5 (3-11) 06/26/24 BUN 28 mg/dl (6-23) H 06/26/24 Creatinine 0.63 mg/dl (0.6-1.2) 06/26/24 Estimated GFR ( Amer) 103.9 ml/min 06/26/24 Estimated GFR (Non-Af Amer) 89.6 ml/min 06/26/24 BUN/Creatinine Ratio 44.4 (10-20) H 06/26/24 Glu 152 mg/dl (70-99(Fasting)) H 06/26/24 Ca 7.3 mg/dl (8.6-10.3) L 06/26/24 Phosphorus Level 2.3 mg/dl (2.5-4.9) L 06/26/24 Mg 1.8 mg/dl (1.7-2.4) 06/26/24 04:14 Calcium Level 7.3 mg/dl (8.6-10.3) L 06/26/24 04:14 Ahsan Test Pass 06/26/24 04:56 Microbiology 06/24/24 21:19 Aerobic Blood Culture - Preliminary Blood No growth in Aerobic bottle after 24 hours. Anaerobic Blood Culture - Preliminary No growth in Anaerobic bottle after 24 hours. 06/24/24 19:01 Aerobic Blood Culture - Preliminary Blood No growth in Aerobic bottle after 24 hours. Anaerobic Blood Culture - Preliminary No growth in Anaerobic bottle after 24 hours. 06/25/24 09:37 Fungal Smear - Final Blood 06/24/24 15:20 Gram Stain - Final Sputum,Vent Suction Sputum Culture - Preliminary No growth 06/19/24 18:57 Aerobic Blood Culture - Final Blood No growth in Aerobic bottle after 5 days. Anaerobic Blood Culture - Final No growth in Anaerobic bottle after 5 days. Diagnostic Findings (Past 24 Hours) Chest X-Ray 06/26/24 07:00 XR chest 1V portable CLINICAL HISTORY: Respiratory failure. COMPARISON STUDY: Chest radiograph June 25, 2024. Chest CT June 19, 2024. FINDINGS: Tip of endotracheal tube is just above the robert. The tube could be withdrawn 2 cm. Right internal jugular [id number] remains in place. Tip of nasogastric tube is below the lower aspect of this image but at least within the body of the stomach. A left chest tube remains in place. A small left pneumothorax has decreased in size. Superior pleural separation measures 3 mm. There is equivocal small right apical pneumothorax. Bilateral airspace opacities and interstitial thickening persists. Cardiomegaly is again noted. IMPRESSION: 1. Tip of endotracheal tube just above the robert. The tube could be withdrawn 2 cm. 2. Left chest tube in place. Decrease in size of a small left pneumothorax. 3. Equivocal small right apical pneumothorax. This is likely artifactual. Short- term radiographic follow-up is recommended. 4. Persistent bilateral airspace opacities suggestive of multifocal pneumonia. ACT 112: Negative or not required by law. Electronically signed by: Mehrdad Torre M.D. 06/26/2024 7:29 AM I & O Totals 24 Hours 06/25/24 06/26/24 06/27/24 06:59 06:59 06:59 Intake Total 3789.592 / 3789.592 4734.641 / 4734.641 135.753 / 135.753 Output Total 1600 / 1600 1845 / 1845 Balance 2189.592 / 2189.592 2889.641 / 2889.641 135.753 / 135.753 Cumulative 06/19/24 17:30 thru 06/26/24 07:38 Intake Total 37029.602 Output Total 68911 Balance 9996.602 RT Ventilator Mngmt (Last Documented) Ventilator Ordered Settings Ventilator Support Mode Assist Control 06/26/24 04:15 Respiratory Rate 26 06/26/24 05:30 Ventilator Tidal Volume 350 06/26/24 04:15 Setting Minute Ventilation 9.1 06/26/24 04:15 Positive End Expiratory 5 06/26/24 04:15 Pressure Fraction of Inspired Oxygen 35 06/26/24 05:09 Machine Comment fio2 titrated to 30% 06/26/24 04:15 Ventilator - PT Measurements Respiratory Rate 26 Exhaled Tidal Volume 351 Minute Ventilation 9.1 Peak Inspiratory Airway 19 Pressure Plateau Pressure 21 Respiratory Cycle Inspiratory: 1:1.9 Expiratory Ratio Inspiratory Phase Time 0.8 End-Tidal CO2 24 Static Lung Compliance 21.94 Dynamic Lung Compliance 25.07 Normal Static Lung Compliance 47.00 Coding Level of Care Code 51476 CRITICAL CARE 1ST 30-74M Diagnoses Septic shock A41.9; R65.21 COVID-19 U07.1 Encephalopathy G93.40 Pneumonia J18.9 Laterality: left Lung location: lower lobe of lung Pneumonia type: due to unspecified organism Diarrhea R19.7 ILD (interstitial lung disease) J84.9 Hypothyroidism E03.9 Chronic kidney disease N18.9 Chronic diastolic (congestive) heart failure I50.32 Pancreatic insufficiency K86.89 (4) Pneumonia Laterality: left Lung location: lower lobe of lung Pneumonia type: due to unspecified organism Qualified Code(s): J18.9 - Pneumonia, unspecified organism
--- NOTE | 2024-06-26 14:15 | Hospitalist Progress Note ---
Date of Service June 26, 2024 Assessment & Plan (1) Lethargy: Plan: 73-year-old female with past medical history significant for chronic pancreatitis, hyperlipidemia, hypothyroidism, secondary hyperparathyroidism of renal origin, history of hypoglycemia, COPD, complex sleep apnea syndrome, chronic diastolic CHF, CKD stage III, sick sinus syndrome status post pacemaker, mitral valve disorder, chronic venous insufficiency, history of renal disease, pulmonary hypertension, history of occlusion of left saphenous vein, GERD, status post partial gastrectomy ,postsurgical malabsorption, obstructive uropathy, osteoarthritis, restless leg syndrome, osteoporosis, dysgeusia, history of C. difficile, depression, KRYSTAL, history of kidney stones, gait disturbance ambulates with walker, lives alone was brought in because of confusion and lethargy and found to have COVID, UTI and pneumonia. Acute Metabolic encephalopathy- resolved Severe sepsis/Septic shock Acute hypoxic/hypercarbic respiratory failure COVID 19 Infection Multifocal Pneumonia Acute UTI Left Hydropneumothorax Patient's presents with confusion and lethargy. --CT head:No acute intracranial process or significant alteration from the prior examination with chronic underlying presumed age-related findings. --CTA chest shows dense consolidation involving the left lower lobe; consistent with pneumonia with suspected interval developing necrotizing process. No cavitation noted. Also has areas of consolidation involving the right lung. Bronchi on right and left side with complete opacification of segmental branches; likely represent aspiration or endobronchial secretions. --MRSA nares positive --CT abdomen and pelvis findings suggestive of jejunitis/enteritis. --Blood cultureno growth till date --Urine culture3 types of organism; all high counts -Repeat cultures negative to date --S/P left chest tube placement on 06/24/2024 Completed 7-day course of meropenem, vancomycin Continue IV dexamethasone Completed 5-day azithromycin course Weaned off of pressors Appreciate critical care input Prognosis is guarded Vent management as per critical care team Continue tube feeds Monitor off antibiotics Stool for C. difficile negative Hypernatremia Continue gentle IV fluids Monitor sodium levels Sodium 147 today Continue free water Jejunitis/enteritis Esophagitis Stool for C. difficile negative Completed antibiotic course Continue PPI Hypokalemia Hypomagnesemia Hypophosphatemia Replete electrolytes and monitor Elevated troponin Demand Ischemia High sensitive troponin 134 and admission peaked to 405.5 and down trended Echocardiogram shows EF of 55-60%. Chronic diastolic CHF Monitor for volume overload IV Lasix as needed History of COPD/asthma/ILD/pulmonary hypertension Continue home inhalers Nebs as needed Obstructive sleep apnea Noncompliant with BiPAP Continue supplemental oxygen Hypothyroidism Continue levothyroxine Sick sinus syndrome Status post pacemaker GERD continue famotidine and PPI H/O C. difficile Recently in March had course of p.o. vancomycin Monitor for any diarrhea C.diff negative H/O Gastric bypass Continue home medications H/O Chronic pancreatitis Pancreatic insufficiency Malabsorption Continue home meds when able to take H/O mood/anxiety disorder Continue home meds when able to take Chronic pain Neuropathy On Pregabalin oxycodone as needed Minimize narcotics to avoid excess sedation H/O chronic headaches Possible tension headaches per neurology On Lamictal and Cymbalta Seems recently started on Ubrelvy CKD stage III Creatinine Stable Monitor H/O Hypotension Requiring midodrine during admission in December 2023 Monitor BP History of chronic nephrolithiasis Secondary hyperparathyroidism On Calcitriol and calcium supplementation Endocrinology follow-up Ambulate dysfunction Ambulates with a walker PT/OT as able DVT prophylaxis Heparin SQ Disposition To be determined Admission and Anticipated Discharge Date Admission Date: June 19, 2024 Subjective Patient is seen and examined at bedside Sedated and intubated Weaned off of pressors Cultures remain negative Afebrile today Review of Systems Review of Systems: All systems reviewed & are unremarkable except as noted in Subjective Physical Exam Physical Exam: Physical Exam: Vitals signs as noted above General Appearance:Obese, no apparent distress, + mechanically ventilated Head: normocephalic, Atraumatic Eyes: normal inspection, EOMI Neck: supple, Trachea midline Respiratory/Chest: Decreased breath sounds, + crackles, rhonchi, no accessory muscle use, +Chest Tube Cardiovascular: S1, S2, No murmur Abdomen/GI:Soft, non tender, bowel sounds present Extremities/Musculoskeletal:normal inspection, no edema Neurologic/Psych: Sedated and intubated Skin: normal color, warm Results & Data Results & Data Vital Signs (Past 12 Hours) Vital Signs Temp Pulse Resp BP Pulse Ox O2 Del Method FiO2 06/26/24 13:27 37.1 C 79 26 H 96 Mechanical Vent 06/26/24 13:11 119/69 06/26/24 13:09 37.2 C 71 26 H 94 Mechanical Vent 06/26/24 13:06 37.2 C 70 26 H 95 06/26/24 12:41 124/75 06/26/24 12:24 37.2 C 78 26 H 96 06/26/24 12:11 141/83 H 06/26/24 12:09 37.3 C 83 27 H 94 06/26/24 11:42 138/81 06/26/24 11:39 37.2 C 85 28 H 92 06/26/24 11:29 30 06/26/24 11:25 88 31 H 95 30 06/26/24 11:12 36.5 C 101 H 33 H 95 Mechanical Vent 06/26/24 11:12 143/104 H 06/26/24 11:00 36.7 C 89 31 H 96 06/26/24 10:42 36.7 C 92 H 31 H 92 06/26/24 10:42 153/107 H 06/26/24 10:42 153/107 H 06/26/24 10:03 80 30 H 97 06/26/24 10:00 36.7 C 81 29 H 97 06/26/24 09:21 36.5 C 76 31 H 96 06/26/24 09:12 140/90 06/26/24 09:07 77 29 H 97 06/26/24 09:03 36.3 C L 83 26 H 96 Mechanical Vent 06/26/24 09:00 36.7 C 71 26 H 94 06/26/24 08:18 36.8 C 80 27 H 90 06/26/24 08:00 Mechanical Vent 06/26/24 08:00 30 06/26/24 07:42 67 29 H 97 30 06/26/24 07:30 103/61 06/26/24 07:27 36.8 C 64 26 H 97 06/26/24 07:24 70 06/26/24 07:12 36.8 C 69 26 H 97 06/26/24 07:00 114/65 06/26/24 06:45 36.9 C 71 26 H 97 06/26/24 06:36 37.0 C 69 26 H 97 06/26/24 06:30 101/61 06/26/24 05:30 100/64 06/26/24 05:30 100/64 06/26/24 05:30 100/64 06/26/24 05:30 100/64 06/26/24 05:30 37.0 C 67 26 H 96 06/26/24 05:09 37.0 C 69 26 H 95 35 06/26/24 05:00 113/64 06/26/24 04:39 36.8 C 70 23 96 06/26/24 04:30 114/66 06/26/24 04:15 72 27 H 94 30 06/26/24 04:00 37.0 C 77 21 98 06/26/24 04:00 106/67 06/26/24 04:00 106/67 06/26/24 04:00 106/67 06/26/24 04:00 67 102/53 L 06/26/24 03:36 36.9 C 69 23 98 06/26/24 03:03 36.9 C 75 23 98 35 06/26/24 03:00 107/70 06/26/24 02:57 37.1 C 72 23 98 06/26/24 02:39 37.1 C 67 23 97 35 Laboratory Results Short CBC 06/26/24 Range/Units 04:14 WBC 8.16 (4.8-10.8) K/ul Hgb 10.5 L (12.0-16.0) g/dl Hct 31.8 L (37.0-47.0) % Plt Count 180 (130-400) K/uL BMP 06/26/24 04:14 Sodium 146 H Potassium 4.4 Chloride 118 H Carbon Dioxide 23 BUN 28 H Creatinine 0.63 Glucose 152 H Calcium 7.3 L
[2024-06-27 05:20] LABS: Hematocrit (blood only) 33.2 % (37.0-47.0); Hemoglobin 10.6 g/dl (12.0-16.0); Mean Corpuscular Hemoglobin 29.9 pg (25.0-34.0); Mean Corpuscular Hgb Conc 31.9 g/dL (32.0-36.0); Mean Corpuscular Volume 93.8 fL (80.0-100.0); Mean Platelet Volume 11.5 fL (9.4-12.4); Platelet Count 221 K/uL (130-400); RDW Coefficient of Variation 14.5 % (11.5-14.5); RDW Standard Deviation 49.9 fL (36.4-46.3); Red Blood Count 3.54 M/uL (4.20-5.40); White Blood Count 9.95 K/ul (4.8-10.8)
[2024-06-27 05:37] LABS: BUN Creatinine Ratio 49.1 (10-20); Calcium 7.3 mg/dl (8.6-10.3); Creatinine Clr Calc Pharmacy 85.3 ml/min; Est GFR (African American) 108.6 ml/min; Est GFR (Non-African American) 93.7 ml/min; Phosphorus 3.4 mg/dl (2.5-4.9); Potassium 4.4 mmol/L (3.5-5.1)
[2024-06-27] MEDS: MAGNESIUM SULFATE / D5W 1 GM/100 ML BAG IV SCH (06:33)
[2024-06-27 06:56] LABS: Basophils # (auto) 0.03 K/uL (0.00-0.20); Basophils % (auto) 0.3 %; Immature Granulocytes # (auto) 0.69 K/uL (0.01-0.20); Immature Granulocytes % (auto) 6.9 %; Lymphocytes # (auto) 0.55 K/uL (1.20-3.40); Lymphocytes % (auto) 5.5 %; Monocytes # (auto) 0.53 K/uL (0.11-0.59); Monocytes % (auto) 5.3 %; Neutrophils # (auto) 8.15 K/uL (1.40-6.50)
--- NOTE | 2024-06-27 07:08 | XRay Report ---
XR chest 1V portable HISTORY: 74 years-old Female ptx acute respiratory failure COMPARISON: 06/26/2024 TECHNIQUE: AP view of the chest FINDINGS: Endotracheal tube overlies the midline, 6 mm superior to the robert. Right IJ Eembyx-c-Oxuc catheter is unchanged. Enteric tube courses into the stomach. Electronic device projects over the left heart b order. Upper abdominal surgical clips and sutures. Left-sided chest tube is unchanged. Left-sided hyd ropneumothorax redemonstrated with pleural separation at the lung apex measuring 4 mm. Mild subcutane ous emphysema of the lateral left chest wall. Trace right pleural effusion. Unchanged mixed interstit ial and alveolar opacities. IMPRESSION: 1. Lines and tubes as above. 2. Stable size of the left-sided hydropneumothorax. 3. No definite right-sided pneumothorax identified. 4. Unchanged mixed interstitial and alveolar opacities. ACT 112: Negative or not required by law. The above report was generated using voice recognition software. It may contain grammatical, syntax o r spelling errors. Electronically signed by: Soham Kirby M.D. 06/27/2024 7:06 AM
[2024-06-27 08:02] LABS: iSTAT Art Bld Gas pCO2 Correct 33 mmHg (35-46); iSTAT Art Bld Gas pH Corrected 7.428 (7.35-7.45); iSTAT Arterial Blood Gas HCO3 22 meg/L (19-24); iSTAT Arterial Blood Gas pCO2 34 mmHg (35-46); iSTAT Arterial Blood Gas pH 7.42 (7.35-7.45); iSTAT Arterial Blood Gas pO2 290 mmHg (80-95); iSTAT Arterial Blood Gas pO2 C 287; iSTAT Carbon Dioxide 23 mmol/L (24-31); iSTAT FiO2 30 %; iSTAT Hematocrit 29 % (37-47); iSTAT Hemoglobin 9.9 g/dl (12.0-16.0); iSTAT Potassium 4.4 mmol/L (3.3-5.0); iSTAT Site Art Line; iSTAT Sodium 143 mmol/L (135-144)
--- NOTE | 2024-06-27 09:14 | Critical Care Progress Note ---
Date of Service June 27, 2024 Assessment & Plan (1) Septic shock: (2) COVID-19: (3) Encephalopathy: (4) Pneumonia: (5) Diarrhea: (6) ILD (interstitial lung disease): (7) Hypothyroidism: (8) Chronic kidney disease: (9) Chronic diastolic (congestive) heart failure: (10) Pancreatic insufficiency: Plan Impression: 73 YOF with interstitial lung disease and restrictive PFTs and hypoxemic and hypercarbic respiratory failure admitted with COVID and superi mposed probable bacterial pneumonia. She was initially in the ICU on noninvasive positive pressure ventilation and transferred to the floor. She developed a pneumothorax which initially was stable but on 06/24/2024 had increased in size with the patient developing increasing respiratory distress. She was transferred to the ICU 06/24/2024 where chest tube was placed and she was intubated for hypoxemic hypercarbic respiratory failure. 24-hour events: Hemodynamics have improved and off of vasoactive medications. Currently on minimal vent settings. Yesterday sedation vacation was trialed and spontaneous breathing trial was attempted with increased work of breathing and thus this was aborted. This morning she is doing well on minimal vent settings and low sedation. Recommendations: Neuro -intubated. Will pursue sedation vacation and possible SBT. Continue home meds including Lamictal. Resume duloxetine. Cardiac -hypotension has resolved. Echo 06/20/2024 with an EF of 55 to 60%. Right ventricle normal in size and function. Aortic valve sclerotic without significant stenosis. Respiratory -patient with reported history of interstitial lung disease. CT from November reviewed with reticular nodular opacities noted. This admission she had a chest CTA 06/19/2024 which revealed and consolidation of the left lower lobe with a possible necrotizing component. Also areas of consolidation noted in the inferior lingula segments and right medial basal segments. Patchy opacities in the anterior right upper lobe. Some layering fluid noted in the posterior aspect of the proximal right and left bronchi with complete opacification suggesting possible aspiration. Also seen was a small left pleural effusion. Patient currently intubated and sedated. Will attempt spontaneous breathing trial. If she fails, will need to consider bronchoscopy. Patient now with a chest tube on the left side placed 06/24/2024 for secondary pneumothorax. Small left pneumothorax noted. Continue chest tube to suction to -20 cm H2O. Currently on dexamethasone for COVID-19 pneumonitis. Right requirements minimal. I suspect her hypoxemic respiratory failure is related to bacterial pneumonia and less likely to COVID. Will discontinue dexamethasone. Given reported history of asthma, will initiate Brovana twice daily and Pulmicort nebulizer twice daily. Will also start percussive vest therapy to promote mucociliary clearance. GI -continue bowel regiment. Hold tube feeding for SBT. Continue thiamine. LFTs were elevated 06/23/2024, but downtrending on follow-up 06/24/2024. If unable to extubate, will need to consider initiation of tube feeds. GI prophylaxis with Pepcid. Continue home valacyclovir. RENAL/LYTES -continue ICU electrolyte replacement protocol. Continue free water for hypernatremia -Cam catheter ENDO - glycemic protocol per ICU orders. Continue levothyroxine. HEME - No acute needs. Subcu heparin for DVT prophylaxis, increase to every 8. Latest TSH 0.74 06/20/2024. ID -COVID-19 pneumonitis superimposed on probable bacterial pneumonia. Sputum cultures from 06/24/2024 grew rare Staphylococcus species. Patient completed 7 days of meropenem, vancomycin and 5 days of azithromycin. Antibiotics discontinued 06/26/2024. Fever curve resolved over the last 24 hours. Pending Fungitell and fungal blood cultures. Patient currently on dexamethasone for COVID-19 pneumonitis. LINES/IV ACCESS - PIV, RT SCL Mediport, right femoral central venous catheter and right femoral arterial line. If remains hemodynamically stable can discontinue arterial line. DVT PROPHYLAXIS - SCDs, subcu heparin CRITICAL CARE TIME I have personally spent 48 minutes of critical care time in the direct management of this patient. This is a life/limb threatening event. This includes time spent evaluating patient, direct bedside care, chart review, placing orders, interpretation of diagnostic studies, discussion with consultants, patient, and family members, as well as other required patient management activities. This time is exclusive of all separately billable procedures, and teaching time and separate from and in addition to any other critical care service time. Admission and Anticipated Discharge Date Admission Date: June 19, 2024 Subjective Patient seen and examined. Remains on propofol and fentanyl. Minimally responsive to commands while intubated and sedated. Patient on low ventilator settings at this time. Hemodynamically stable not requiring any active BP meds. Review of Systems Review of Systems: Unobtainable due to endotracheal tube and Unobtainable due to reduced consciousness Physical Exam Constitutional: WD/WN, vitals as above + mechanically ventilated Neck: trachea midline, no thyromegaly Respiratory: + tachypneic; no respiratory distress, n o labored breathing and no cough Auscultation: + crackles and + rhonchi; no wheezes Cardiovascular: RRR, no murmur, no edema Gastrointestinal (Abdomen): normal bowel sounds, soft, nontender, no hepatosplenomegaly Musculoskeletal: Extremities: extremities normal to inspection Skin: no rashes, warm and dry Lymphatic: no cervical lymphadenopathy Results & Data Results & Data Vital Signs (Past 12 Hours) Vital Signs Temp Pulse Resp BP Pulse Ox FiO2 06/27/24 07:57 76 23 98 30 06/27/24 07:12 118/71 06/27/24 07:12 118/71 06/27/24 07:06 36.4 C L 66 22 94 06/27/24 07:00 36.4 C L 65 22 97 06/27/24 07:00 69 06/27/24 06:42 36.2 C L 73 25 H 97 06/27/24 06:42 125/65 06/27/24 06:42 125/65 06/27/24 06:42 125/65 06/27/24 06:39 36.4 C L 70 22 97 06/27/24 06:12 122/71 06/27/24 06:12 122/71 06/27/24 06:12 122/71 06/27/24 06:12 36.6 C 71 24 96 06/27/24 06:05 73 06/27/24 06:03 36.6 C 71 23 97 06/27/24 05:42 146/79 H 06/27/24 05:33 36.5 C 70 23 95 06/27/24 05:12 126/71 06/27/24 05:09 36.5 C 68 22 99 06/27/24 04:41 129/69 06/27/24 04:41 129/69 06/27/24 04:41 129/69 06/27/24 04:41 129/69 06/27/24 04:39 36.4 C L 72 22 98 06/27/24 04:06 36.5 C 71 22 100 06/27/24 04:00 30 06/27/24 04:00 77 128/65 06/27/24 03:59 69 22 100 30 06/27/24 03:42 110/61 06/27/24 03:42 110/61 06/27/24 03:36 36.4 C L 71 0 L 100 06/27/24 03:11 112/64 06/27/24 03:11 112/64 06/27/24 03:00 36.2 C L 72 27 H 98 06/27/24 02:41 116/65 06/27/24 02:41 116/65 06/27/24 02:33 36.3 C L 65 26 H 98 06/27/24 02:11 109/66 06/27/24 02:06 36.4 C L 71 26 H 100 06/27/24 02:03 36.4 C L 73 28 H 100 06/27/24 01:41 98/55 L 06/27/24 01:41 98/55 L 06/27/24 01:30 36.5 C 64 26 H 96 06/27/24 01:11 100/59 L 06/27/24 01:11 100/59 L 06/27/24 01:11 100/59 L 06/27/24 01:00 36.4 C L 61 26 H 96 06/27/24 00:27 36.3 C L 63 23 98 06/27/24 00:00 30 06/27/24 00:00 64 118/57 L 06/26/24 23:47 71 31 H 100 30 06/26/24 23:41 123/67 06/26/24 23:39 35.9 C L 73 26 H 99 06/26/24 23:11 120/63 06/26/24 23:06 36.1 C L 77 26 H 99 06/26/24 23:03 36.2 C L 69 26 H 99 06/26/24 22:11 94/53 L 06/26/24 22:06 36.6 C 63 26 H 96 06/26/24 22:03 36.6 C 64 26 H 96 06/26/24 21:11 97/62 L 06/26/24 21:09 36.9 C 64 26 H 94 06/26/24 21:03 36.9 C 65 26 H 94 Coding Level of Care Code 35927 CRITICAL CARE 1ST 30-74M Diagnoses Septic shock A41.9; R65.21 COVID-19 U07.1 Encephalopathy G93.40 Pneumonia J18.9 Laterality: left Lung location: lower lobe of lung Pneumonia type: due to unspecified organism Diarrhea R19.7 ILD (interstitial lung disease) J84.9 Hypothyroidism E03.9 Chronic kidney disease N18.9 Chronic diastolic (congestive) heart failure I50.32 Pancreatic insufficiency K86.89 (4) Pneumonia Laterality: left Lung location: lower lobe of lung Pneumonia type: due to unspecified organism Qualified Code(s): J18.9 - Pneumonia, unspecified organism
[2024-06-27] MEDS: FORMOTEROL 20 MCG/2 ML VIAL ONE (10:11)
[2024-06-27] MEDS ORDERED: VANCOMYCIN CONSULT ACTIVE PRN (10:23)
--- NOTE | 2024-06-27 10:50 | Pharmacy Report ---
Pharmacy PK ABX Note - Date of Service June 27, 2024 - Assessment and Plan Assessment 06/27 * Staph species growing from sputum culture obtained 06/24. This was well into the antibiotic course therefore growth occurred despite concurrent antibiotics. Patient improving (including pressor requirement), but was still febrile on 06/25 * Resuming vancomycin today, likely for an additional 7 days (total of 14 days) per discussion at ICU rounds. There will only be ~a 12 hour gap in vancomycin, not likely to be too clinically significant 06/25 * SCr w slight bump today, but not dissimilar to previous. Random level associated with therapeutic AUC. No change. 06/22 * 73 year old F receiving VANCOMYCIN + MEROPENEM + AZITHROMYCIN for treatment of septic shock likely from pulmonary +/- urinary source. * Pertinent microbiologic data includes: Positive MRSA Nasal Swab, resp BioFire + COVID19, BLCX no growth to date, UA did not show pyuria, UCx showed likely contamination * Day # 4 of antimicrobial therapy (planned 7 day course of vancomycin/meropenem per [employer]) * Continuing to show slow improvement per Provider assessment. Renal fxn stable Plan Vancomycin * Resume 1500mg IV every 24 hours. * Regimen is predicted to achieve target AUC/JOSE MIGUEL of 400-600 mg/L.hr * Repeat random level 9/25 AM Pharmacy will continue to follow and will adjust dose/frequency as necessary. Thank you. Pharmacy has transitioned to AUC monitoring for vancomycin. AUC/JOSE MIGUEL is the preferred PK/PD target and is associated with decreased risk of nephrotoxicity compared to traditional trough targets.
--- NOTE | 2024-06-27 10:57 | Pharmacy Report ---
Pharmacy Glycemic Sign Off Nt - Date of Service June 27, 2024 - Assessment & Plan ASSESSMENT: * Patient is on dexamethasone for COVID. * No diabetes at baseline, and only 1 unit correctional insulin administered in last 4 days * Remains critically ill in ICU w goal BSG 140-180 mg/dL * Only ordered correctional insulin now, to be admin if BSG's rise above 180 mg/dL * D/w Dr. Prescott - pharmacy signing off glycemic management at this time PLAN FOR INPATIENT GLYCEMIC CONTROL: No changes needed to current regimen. * Continue NovoLog per scale ACHS/Q6hrs while NPO * Goal range = 110 180 mg/dl * CF = 35 mg/dl/unit * CR = none * Pharmacy is signing off of glycemic consult and will no longer be making adjustments to inpatient regimen. Please feel free to re-consult if needed. Thank you.
[2024-06-27] MEDS: VANCOMYCIN HCL 1,500 MG in SODIUM CHLORIDE 0.9% 500 ML IV SCH (11:15)
--- NOTE | 2024-06-27 13:19 | Communication Note ---
Date of Service: June 27, 2024 1252: Reached out to the patient's sister, Adele Martinez ([phone]), to provide update. Expressed to her that the patient is currently maximized and able to be extubated at this point. Of note, the patient is still listed as a "conditional code" without wish for intubation or mechanical ventilation. Adele informs me that the patient has a brother and a sister with whom she communicates with. Collectively, they agree that they would not wish to have their sister undergo aggressive resuscitation efforts in the event that she does not do well with the extubation process. Specifically, they would not wish to have her orally intubated or on the ventilator again. Admittedly, she is unaware of any paperwork in place formally. Will plan on discussing patient's wishes shortly after extubation and readdress this topic moving forward. Patient successfully extubated to nasal cannula. She was reevaluated and noted to be anxious and tachypneic. She is maintaining her saturations well. She is alert and oriented and able to provide location, time, and self. When asked if she would wish to undergo reintubation in the event of worsening decline, she was adamant that she would not wish to have a breathing tube placed again. When asked if she would rather transition to comfort, she reiterates that she would rather be comfortable. I asked her if she would be interested in trying something for comfort in her breathing at this point and she nods yes. We will provide her a one-time dose of morphine to see if this helps with air hunger. P hilda will be for changing CODE STATUS to DNR/DNI per patient and family wishes. 1419: Spoke with the patient's sister again. Provided update. She is in agreement with the patient's wishes to not undergo reintubation if necessary. She agrees with DNR/DNI status and reiterates that she and all family members are in agreement as well. I have personally spent 35 minutes of critical care time in the direct management of this patient. This is a life/limb threatening event. This includes time spent evaluating patient, direct bedside care, chart review, placing orders, interpretation of diagnostic studies, discussion with consultants, patient, and family members, as well as other required patient management activities. This time is exclusive of all separately billable procedures, and teaching time and separate from and in addition to any other critical care service time. Coding Level of Care Code 45390 CRITICAL CARE EA ADD 30M
[2024-06-27] MEDS: MoRPHine SULFATE 2 MG/ML CARP IV STA (14:28)
--- NOTE | 2024-06-27 17:47 | Hospitalist Progress Note ---
Date of Service June 27, 2024 Assessment & Plan (1) Lethargy: Plan: 73-year-old female with past medical history significant for chronic pancreatitis, hyperlipidemia, hypothyroidism, secondary hyperparathyroidism of renal origin, history of hypoglycemia, COPD, complex sleep apnea syndrome, chronic diastolic CHF, CKD stage III, sick sinus syndrome status post pacemaker, mitral valve disorder, chronic venous insufficiency, history of renal disease, pulmonary hypertension, history of occlusion of left saphenous vein, GERD, status post partial gastrectomy ,postsurgical malabsorption, obstructive uropathy, osteoarthritis, restless leg syndrome, osteoporosis, dysgeusia, history of C. difficile, depression, KRYSTAL, history of kidney stones, gait disturbance ambulates with walker, lives alone was brought in because of confusion and lethargy and found to have COVID, UTI and pneumonia. Acute Metabolic encephalopathy- resolved Severe sepsis/Septic shock Acute hypoxic/hypercarbic respiratory failure COVID 19 Infection Multifocal Pneumonia with likely superimposed bacterial infection Acute UTI Left Hydropneumothorax Patient's presents with confusion and lethargy. --CT head:No acute intracranial process or significant alteration from the prior examination with chronic underlying presumed age-related findings. --CTA chest shows dense consolidation involving the left lower lobe; consistent with pneumonia with suspected interval developing necrotizing process. No cavitation noted. Also has areas of consolidation involving the right lung. Bronchi on right and left side with complete opacification of segmental branches; likely represent aspiration or endobronchial secretions. --MRSA nares positive --CT abdomen and pelvis findings suggestive of jejunitis/enteritis. --Blood cultureno growth till date --Urine culture3 types of organism; all high counts -Repeat cultures negative to date --S/P left chest tube placement on 06/24/2024 Completed 7-day course of meropenem, vancomycin and 5-day course of azithromycin IV dexamethasone discontinued Weaned off of pressors Appreciate critical care input Prognosis is guarded Extubated on 06/27/2024 Currently on high flow oxygen Continue nebulizers per critical care Started on percussion therapy Hypernatremia Continue gentle IV fluids Monitor sodium levels Sodium 143 today Continue free water Jejunitis/enteritis Esophagitis Stool for C. difficile negative Completed antibiotic course Continue PPI Hypokalemia Hypomagnesemia Hypophosphatemia Replete electrolytes and monitor Elevated troponin Demand Ischemia High sensitive troponin 134 and admission peaked to 405.5 and down trended Echocardiogram shows EF of 55-60%. Chronic diastolic CHF Monitor for volume overload IV Lasix as needed History of COPD/asthma/ILD/pulmonary hypertension Continue home inhalers Nebs as needed Obstructive sleep apnea Noncompliant with BiPAP Continue supplemental oxygen Hypothyroidism Continue levothyroxine Sick sinus syndrome Status post pacemaker GERD continue famotidine and PPI H/O C. difficile Recently in March had course of p.o. vancomycin Monitor for any diarrhea C.diff negative H/O Gastric bypass Continue home medications H/O Chronic pancreatitis Pancreatic insufficiency Malabsorption Continue home meds when able to take H/O mood/anxiety disorder Continue home meds when able to take Chronic pain Neuropathy On Pregabalin oxycodone as needed Minimize narcotics to avoid excess sedation H/O chronic headaches Possible tension headaches per neurology On Lamictal and Cymbalta Seems recently started on Ubrelvy CKD stage III Creatinine Stable Monitor H/O Hypotension Requiring midodrine during admission in December 2023 Monitor BP History of chronic nephrolithiasis Secondary hyperparathyroidism On Calcitriol and calcium supplementation Endocrinology follow-up Ambulate dysfunction Ambulates with a walker PT/OT as able DVT prophylaxis Heparin SQ CODE STATUS DNI DNR Disposition To be determined Admission and Anticipated Discharge Date Admission Date: June 19, 2024 Subjective Patient is seen and examined at bedside Extubated today States feeling anxious during my encounter Currently on high flow oxygen Continues having cough and dyspnea No other complaints today Review of Systems Review of Systems: All systems reviewed & are unremarkable except as noted in Subjective Physical Exam Physical Exam: Physical Exam: Vitals signs as noted above General Appearance:Obese, mild respiratory distress Head: normocephalic, Atraumatic Eyes: normal inspection, EOMI Neck: supple, Trachea midline Respiratory/Chest: Decreased breath sounds, + crackles, rhonchi, + minimal accessory muscle use, +Chest Tube Cardiovascular: S1, S2, No murmur Abdomen/GI:Soft, non tender, bowel sounds present Extremities/Musculoskeletal:normal inspection, no edema Neurologic/Psych: Alert, awake, oriented, grossly no focal deficits Skin: normal color, warm Results & Data Results & Data Vital Signs (Past 12 Hours) Vital Signs Temp Pulse Pulse Resp BP Pulse Ox O2 Del Method 06/27/24 16:30 100 H 26 H 93 High Flow Nasal Cannula 06/27/24 16:00 100 H 06/27/24 14:00 37.1 C 111 H 23 94 06/27/24 13:41 142/85 H 06/27/24 13:39 37.1 C 92 H 36 H 96 06/27/24 12:45 36.8 C 85 29 H 95 06/27/24 12:42 125/74 06/27/24 12:24 36.9 C 81 35 H 95 06/27/24 12:12 36.9 C 80 30 H 97 06/27/24 11:58 79 31 H 97 06/27/24 10:42 114/73 06/27/24 10:42 114/73 06/27/24 10:36 36.6 C 78 30 H 92 06/27/24 10:23 77 29 H 93 Mechanical Vent 06/27/24 10:10 77 29 H 93 06/27/24 10:00 36.5 C 74 27 H 94 06/27/24 09:42 36.4 C L 77 27 H 96 06/27/24 09:42 137/63 06/27/24 09:42 137/63 06/27/24 09:30 Mechanical Vent 06/27/24 09:03 36.4 C L 65 22 97 06/27/24 08:42 127/79 06/27/24 08:30 36.4 C L 71 24 96 06/27/24 08:11 119/81 06/27/24 08:09 36.4 C L 70 24 96 06/27/24 08:00 69 06/27/24 08:00 36.3 C L 71 24 96 06/27/24 07:57 76 23 98 06/27/24 07:42 112/76 06/27/24 07:15 36.4 C L 71 22 98 06/27/24 07:12 118/71 06/27/24 07:12 118/71 06/27/24 07:06 36.4 C L 66 22 94 06/27/24 07:00 36.4 C L 65 22 97 06/27/24 07:00 69 06/27/24 06:42 36.2 C L 73 25 H 97 06/27/24 06:42 125/65 06/27/24 06:42 125/65 06/27/24 06:42 125/65 06/27/24 06:39 36.4 C L 70 22 97 06/27/24 06:12 122/71 06/27/24 06:12 122/71 06/27/24 06:12 122/71 06/27/24 06:12 36.6 C 71 24 96 06/27/24 06:05 73 06/27/24 06:03 36.6 C 71 23 97 06/27/24 05:42 146/79 H O2 Flow Rate FiO2 06/27/24 16:30 60 45 06/27/24 16:00 06/27/24 14:00 06/27/24 13:41 06/27/24 13:39 06/27/24 12:45 06/27/24 12:42 06/27/24 12:24 06/27/24 12:12 30 06/27/24 11:58 30 06/27/24 10:42 06/27/24 10:42 06/27/24 10:36 06/27/24 10:23 30 06/27/24 10:10 30 06/27/24 10:00 06/27/24 09:42 06/27/24 09:42 06/27/24 09:42 06/27/24 09:30 30 06/27/24 09:03 06/27/24 08:42 06/27/24 08:30 06/27/24 08:11 06/27/24 08:09 06/27/24 08:00 06/27/24 08:00 06/27/24 07:57 30 06/27/24 07:42 06/27/24 07:15 06/27/24 07:12 06/27/24 07:12 06/27/24 07:06 06/27/24 07:00 06/27/24 07:00 06/27/24 06:42 06/27/24 06:42 06/27/24 06:42 06/27/24 06:42 06/27/24 06:39 06/27/24 06:12 06/27/24 06:12 06/27/24 06:12 06/27/24 06:12 06/27/24 06:05 06/27/24 06:03 06/27/24 05:42
[2024-06-27] MEDS: ARFORMOTEROL TART 15MCG/2ML VIAL INH SCH (20:41)
[2024-06-27] MEDS: FORMOTEROL 20 MCG/2 ML VIAL INH SCH (20:43)
[2024-06-27] MEDS: BUDESONIDE 0.5 MG/2 ML VIAL (PULMICORT) NEB SCH (20:43)
[2024-06-28 05:14] LABS: Basophils % (auto) 0.5 %; Eosinophils # (auto) 0.05 K/uL (0.00-0.50); Eosinophils % (auto) 0.2 %; Hematocrit (blood only) 35.5 % (37.0-47.0); Hemoglobin 11.6 g/dl (12.0-16.0); Immature Granulocytes # (auto) 0.83 K/uL (0.01-0.20); Immature Granulocytes % (auto) 4.1 %; Lymphocytes # (auto) 0.74 K/uL (1.20-3.40); Lymphocytes % (auto) 3.6 %; Mean Corpuscular Hemoglobin 29.8 pg (25.0-34.0); Mean Corpuscular Hgb Conc 32.7 g/dL (32.0-36.0); Mean Corpuscular Volume 91.3 fL (80.0-100.0); Mean Platelet Volume 11.7 fL (9.4-12.4); Monocytes # (auto) 1.32 K/uL (0.11-0.59); Monocytes % (auto) 6.5 %; Neutrophils # (auto) 17.27 K/uL (1.40-6.50); Neutrophils % (auto) 85.1 %; Nucleated RBC # (auto) 0.09 K/uL (0.00-0.12); Nucleated RBC % (auto) 0.4 %; Platelet Count 267 K/uL (130-400); RDW Coefficient of Variation 14.3 % (11.5-14.5); RDW Standard Deviation 47.6 fL (36.4-46.3); Red Blood Count 3.89 M/uL (4.20-5.40); White Blood Count 20.31 K/ul (4.8-10.8)
[2024-06-28 06:04] LABS: Calcium 7.5 mg/dl (8.6-10.3); Magnesium 1.9 mg/dl (1.7-2.4)
[2024-06-28 06:09] LABS: BUN Creatinine Ratio 34.5 (10-20); Creatinine Clr Calc Pharmacy 89.1 ml/min; Est GFR (African American) 108.6 ml/min; Est GFR (Non-African American) 93.7 ml/min; Phosphorus 3.7 mg/dl (2.5-4.9)
[2024-06-28] MEDS ORDERED: MAGNESIUM SULFATE / D5W 1 GM/100 ML BAG IV ONE (06:13)
[2024-06-28] MEDS: MAGNESIUM SULFATE / D5W 1 GM/100 ML BAG IV SCH (06:23)
[2024-06-28] MEDS: MoRPHine SULFATE 2 MG/ML CARP IV STA (08:38)
--- NOTE | 2024-06-28 08:40 | Critical Care Progress Note ---
Date of Service June 28, 2024 Assessment & Plan (1) Septic shock: (2) COVID-19: (3) Encephalopathy: (4) Pneumonia: (5) Diarrhea: (6) ILD (interstitial lung disease): (7) Hypothyroidism: (8) Chronic kidney disease: (9) Chronic diastolic (congestive) heart failure: (10) Pancreatic insufficiency: Plan Impression: 73 YOF with interstitial lung disease and restrictive PFTs and hypoxemic and hypercarbic respiratory failure admitted with COVID and superi mposed probable bacterial pneumonia. She was initially in the ICU on noninvasive positive pressure ventilation and transferred to the floor. She developed a pneumothorax which initially was stable but on 06/24/2024 had increased in size with the patient developing increasing respiratory distress. She was transferred to the ICU 06/24/2024 where chest tube was placed and she was intubated for hypoxemic hypercarbic respiratory failure. 24-hour events: Patient successfully liberated from the ventilator yesterday. She is currently requiring high flow liters cannula at 60 L and 35%. Appears to be more related to generalized weakness and fatigue at this point. Recommendations: Neuro - Doing much better at this time. Conversant, but weak. Continue home meds including Lamictal. Resume duloxetine. Cardiac - Hypotension has resolved. Echo 06/20/2024 with an EF of 55 to 60%. Right ventricle normal in size and function. Aortic valve sclerotic without significant stenosis. Respiratory - Patient with reported history of interstitial lung disease. CT from November reviewed with reticular nodular opacities noted. This admission she had a chest CTA 06/19/2024 which revealed and consolidation of the left lower lobe with a possible necrotizing component. Also areas of consolidation noted in the inferior lingula segments and right medial basal segments. Patchy opacities in the anterior right upper lobe. Some layering fluid noted in the posterior aspect of the proximal right and left bronchi with complete opacification suggesting possible aspiration. Also seen was a small left pleural effusion. Patient currently intubated and sedated. Will attempt spontaneous breathing trial. If she fails, will need to consider bronchoscopy. Patient now with a chest tube on the left side placed 06/24/2024 for secondary pneumothorax. Small left pneumothorax noted. Continue chest tube to suction to -20 cm H2O. Currently on dexamethasone for COVID-19 pneumonitis. Right requirements minimal. Continue with Brovona and Pulmicort. Chest PT with NT suctioning. Would benefit from percussive therapy as well. 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 GI prophylaxis with Pepcid. Continue home valacyclovir. RENAL/LYTES - Continue ICU electrolyte replacement protocol. Continue free water for hypernatremia -Cam catheter ENDO - Glycemic protocol per ICU orders. Continue levothyroxine. HEME - No acute needs. Subcu heparin for DVT prophylaxis, increase to every 8. Latest TSH 0.74 06/20/2024. ID - COVID-19 pneumonitis superimposed on probable bacterial pneumonia. Sputum cultures from 06/24/2024 grew rare Staphylococcus species. Patient completed 7 days of meropenem, vancomycin and 5 days of azithromycin. Antibiotics discontinued 06/26/2024. Pending Fungitell and fungal blood cultures. Patient currently on dexamethasone for COVID-19 pneumonitis. LINES/IV ACCESS - PIV, RT SCL Mediport, right femoral central venous catheter. DVT PROPHYLAXIS - SCDs, subcu heparin CODE STATUS -patient had received 1 dose of morphine early this morning secondary to respiratory distress. Had a conversation with the patient's sister, Adele, to provide update. Again, she is comfortable with treatment plan, but would also be okay if the patient wished to transition to formal comfort measures at this time. Had an extensive discussion with the patient at bedside. I did explain to her that unfortunately, she has not shown significant improvement and that if she were to improve, it would likely be very slow. I did explain to her that the likelihood of her declining rapidly is very high. We did discuss treatment options moving forward including continuing current treatment plan, no escal ation of care, or transition to comfort based approach. After explaining all of these to her, she did not wish to discontinue care at this point and focus on a comfort based approach. I do understand this, but I did explain to her that if her symptoms do decline, we should highly consider transitioning to comfort at that point. She is agreeable to this. We did discuss no escalation of care in the event of significant decline which the patient agrees to as well. Unfortunately, at this point, the patient has substantial underlying disease and is complicated by her COVID infection, pneumonia, and pneumothorax. While her oxygen requirements not significant, the patient is generally weak and fatigued and I am concerned that she will likely rapidly decompensate. Even if she were to improve, it would take a substantial amount of time for her to get back to a great functional status. Respectfully, the patient does wish to continue current care at this point which I certainly not opposed to as this is the wishes for the patient. Certainly, if she were to decline, transition to comfort based approach would likely be in the patient's best interest. CRITICAL CARE TIME I have personally spent 45 minutes of critical care time in the direct management of this patient. This is a life/limb threatening event. This includes time spent evaluating patient, direct bedside care, chart review, placing orders, interpretation of diagnostic studies, discussion with consultants, patient, and family members, as well as other required patient management activities. This time is exclusive of all separately billable procedures, and teaching time and separate from and in addition to any other critical care service time. Admission and Anticipated Discharge Date Admission Date: June 19, 2024 Subjective Patient was seen and evaluated at bedside this morning. She reports a rough night as she was unable to sleep. She offers no complaints of pain. She does report some difficulty breathing, but is better than yesterday. She did well with morphine as needed for shortness of breath. Review of Systems Review of Systems: unable to obtain full ROS secondary to lethargy. ROS per HPI Physical Exam Physical Exam: VITAL SIGNS Vital signs and nursing notes were reviewed. GENERAL 74-year-old female appearing her stated age who is in no acute distress. Communicates well with provider and answers questions appropriately. SKIN Without rashes or lesions. NOSE Midline and without cyanosis. MOUTH/OROPHARYNX Without perioral cyanosis. NECK Neck with FROM. LUNGS Chest wall evaluation demonstrates normal chest wall A:P diameter. Auscultation reveals coarse breath sounds bilaterally. CARDIAC RRR with S1/S2. No murmur, rubs, or gallops appreciated. ABDOMEN Abdominal inspection demonstrates an obese abdomen. BS normoactive all four quadrants. No tenderness, palpable masses, or ascites noted. EXTREMITIES Nail clubbing not present. No peripheral cyanosis. No pretibial edema present. +3/5 radial palpated throughout. PSYCH A&Ox3 and cooperates fully with examiner. Results & Data Results & Data Vital Signs (Past 12 Hours) Vital Signs Temp Pulse Pulse Resp BP Pulse Ox O2 Del Method 06/28/24 08:32 86 37 H 95 High Flow Nasal Cannula 06/28/24 08:31 89 37 H 96 High Flow Nasal Cannula 06/28/24 06:09 37.4 C 101 H 27 H 137/72 95 06/28/24 05:03 37.6 C H 96 H 22 92 06/28/24 04:41 149/90 H 06/28/24 04:41 149/90 H 06/28/24 04:36 37.4 C 103 H 36 H 97 06/28/24 04:35 104 H 28 H 96 High Flow Nasal Cannula 06/28/24 04:09 37.5 C 101 H 24 96 06/28/24 03:42 141/95 H 06/28/24 03:42 141/95 H 06/28/24 03:27 37.4 C 96 H 24 136/68 97 06/28/24 02:42 37.4 C 98 H 24 96 06/28/24 02:09 37.5 C 98 H 26 H 136/68 96 06/28/24 01:03 37.5 C 100 H 30 H 96 06/28/24 00:42 128/57 L 06/28/24 00:42 128/57 L 06/28/24 00:42 128/57 L 06/28/24 00:42 37.5 C 94 H 34 H 96 06/28/24 00:00 37.5 C 95 H 27 H 97 06/27/24 23:42 147/63 H 06/27/24 23:42 147/63 H 06/27/24 23:42 37.5 C 97 H 24 96 06/27/24 23:41 94 H 28 H 96 High Flow Nasal Cannula 06/27/24 23:30 93 H 06/27/24 23:09 37.5 C 98 H 24 96 06/27/24 22:41 130/56 L 06/27/24 22:28 95 H 06/27/24 22:18 37.5 C 94 H 22 97 06/27/24 22:09 37.5 C 95 H 30 H 95 06/27/24 21:42 121/60 06/27/24 21:42 121/60 06/27/24 21:39 37.5 C 95 H 30 H 98 06/27/24 21:12 37.6 C H 91 H 26 H 94 06/27/24 20:45 94 H 26 H 94 High Flow Nasal Cannula 06/27/24 20:45 94 H 26 H 94 High Flow Nasal Cannula 06/27/24 20:41 115/71 O2 Flow Rate FiO2 06/28/24 08:32 60 35 06/28/24 08:31 60 35 06/28/24 06:09 06/28/24 05:03 06/28/24 04:41 06/28/24 04:41 06/28/24 04:36 06/28/24 04:35 60 45 06/28/24 04:09 06/28/24 03:42 06/28/24 03:42 06/28/24 03:27 06/28/24 02:42 06/28/24 02:09 06/28/24 01:03 06/28/24 00:42 06/28/24 00:42 06/28/24 00:42 06/28/24 00:42 06/28/24 00:00 06/27/24 23:42 06/27/24 23:42 06/27/24 23:42 06/27/24 23:41 60 45 06/27/24 23:30 06/27/24 23:09 06/27/24 22:41 06/27/24 22:28 06/27/24 22:18 06/27/24 22:09 06/27/24 21:42 06/27/24 21:42 06/27/24 21:39 06/27/24 21:12 06/27/24 20:45 60 45 06/27/24 20:45 60 45 06/27/24 20:41 Coding Level of Care Code 52003 CRITICAL CARE 1ST 30-74M Diagnoses Septic shock A41.9; R65.21 COVID-19 U07.1 Encephalopathy G93.40 Pneumonia J18.9 Laterality: left Lung location: lower lobe of lung Pneumonia type: due to unspecified organism Diarrhea R19.7 ILD (interstitial lung disease) J84.9 Hypothyroidism E03.9 Chronic kidney disease N18.9 Chronic diastolic (congestive) heart failure I50.32 Pancreatic insufficiency K86.89 (4) Pneumonia Laterality: left Lung location: lower lobe of lung Pneumonia type: due to unspecified organism Qualified Code(s): J18.9 - Pneumonia, unspecified organism
--- NOTE | 2024-06-28 10:30 | XRay Report ---
SINGLE VIEW CHEST CLINICAL HISTORY: Pneumothorax. FINDINGS: An AP, portable, upright chest radiograph is compared to study dated 06/27/2024 and correlat ed with chest CT dated 06/19/2024. A right internal jugular central venous infusion port is unchanged in position. The heart is enlarged noting atherosclerotic calcification of the thoracic. There is pul monary vascular congestion with interstitial edema. There are layering pleural effusions with depende nt consolidation. A left-sided chest tube is unchanged in position. Trace left-sided pneumothorax is likely unchanged. The skeletal structures are osteopenic. The bony thorax is grossly intact. Suture m aterial and surgical clips are noted in the upper abdomen. IMPRESSION: 1. Cardiomegaly with evidence of congestive failure and pulmonary edema. 2. Layering pleural effusions with dependent consolidation. 3. Trace left apical pneumothorax is likely unchanged. ACT 112: Negative or not required by law. Electronically signed by: Chinedu Hicks M.D. 06/28/2024 10:28 AM
[2024-06-28] MEDS: PANTOprazole 40 MG in SYRINGE BID IV SCH (11:12)
[2024-06-28] MEDS: MoRPHine SULFATE 2 MG/ML CARP IV PRN (11:13)
--- NOTE | 2024-06-28 14:43 | Hospitalist Progress Note ---
Date of Service June 28, 2024 Assessment & Plan (1) Lethargy: Plan: 73-year-old female with past medical history significant for chronic pancreatitis, hyperlipidemia, hypothyroidism, secondary hyperparathyroidism of renal origin, history of hypoglycemia, COPD, complex sleep apnea syndrome, chronic diastolic CHF, CKD stage III, sick sinus syndrome status post pacemaker, mitral valve disorder, chronic venous insufficiency, history of renal disease, pulmonary hypertension, history of occlusion of left saphenous vein, GERD, status post partial gastrectomy ,postsurgical malabsorption, obstructive uropathy, osteoarthritis, restless leg syndrome, osteoporosis, dysgeusia, history of C. difficile, depression, KRYSTAL, history of kidney stones, gait disturbance ambulates with walker, lives alone was brought in because of confusion and lethargy and found to have COVID, UTI and pneumonia. Acute Metabolic encephalopathy- resolved Severe sepsis/Septic shock Acute hypoxic/hypercarbic respiratory failure COVID 19 Infection Multifocal Pneumonia with likely superimposed bacterial infection Acute UTI Left Hydropneumothorax Patient's presents with confusion and lethargy. --CT head:No acute intracranial process or significant alteration from the prior examination with chronic underlying presumed age-related findings. --CTA chest shows dense consolidation involving the left lower lobe; consistent with pneumonia with suspected interval developing necrotizing process. No cavitation noted. Also has areas of consolidation involving the right lung. Bronchi on right and left side with complete opacification of segmental branches; likely represent aspiration or endobronchial secretions. --MRSA nares positive --CT abdomen and pelvis findings suggestive of jejunitis/enteritis. --Blood cultureno growth till date --Urine culture3 types of organism; all high counts -Repeat cultures negative to date --S/P left chest tube placement on 06/24/2024 Completed 7-day course of meropenem, vancomycin and 5-day course of azithromycin IV dexamethasone discontinued Weaned off of pressors Appreciate critical care input Prognosis is guarded Extubated on 06/27/2024 Remains on high flow oxygen Aspiration precautions Continue nebulizers per critical care Continue percussion therapy Restarted vancomycin on 06/27/2024 given low-grade fever this a.m., worsening leukocytosis Aggressive pulmonary hygiene Speech therapy evaluation today--recommends to continue n.p.o. for now Hypernatremia Monitor sodium levels Sodium 144 today Continue gentle IV fluids Jejunitis/enteritis Esophagitis Stool for C. difficile negative Completed antibiotic course Continue PPI Hypokalemia Hypomagnesemia Hypophosphatemia Replete electrolytes and monitor Elevated troponin Demand Ischemia High sensitive troponin 134 and admission peaked to 405.5 and down trended Echocardiogram shows EF of 55-60%. Chronic diastolic CHF Monitor for volume overload IV Lasix as needed History of COPD/asthma/ILD/pulmonary hypertension Continue home inhalers Nebs as needed Obstructive sleep apnea Noncompliant with BiPAP Continue supplemental oxygen Hypothyroidism Continue levothyroxine Sick sinus syndrome Status post pacemaker GERD continue famotidine and PPI H/O C. difficile Recently in March had course of p.o. vancomycin Monitor for any diarrhea C.diff negative H/O Gastric bypass Continue home medications H/O Chronic pancreatitis Pancreatic insufficiency Malabsorption Continue home meds when able to take H/O mood/anxiety disorder Continue home meds Chronic pain Neuropathy On Pregabalin oxycodone as needed Minimize narcotics to avoid excess sedation H/O chronic headaches Possible tension headaches per neurology On Lamictal and Cymbalta Seems recently started on Ubrelvy CKD stage III Creatinine Stable Monitor H/O Hypotension Requiring midodrine during admission in December 2023 Monitor BP History of chronic nephrolithiasis Secondary hyperparathyroidism On Calcitriol and calcium supplementation Endocrinology follow-up Ambulate dysfunction Ambulates with a walker PT/OT as able DVT prophylaxis Heparin SQ CODE STATUS DNI DNR Disposition PT OT prior to discharge Admission and Anticipated Discharge Date Admission Date: June 19, 2024 Subjective Patient is seen and examined at bedside Poor historian Remains on high flow oxygen intermittent saturation Less dyspnea today Still has some cough No other complaints today Review of Systems Review of Systems: All systems reviewed & are unremarkable except as noted in Subjective Physical Exam Physical Exam: Physical Exam: Vitals signs as noted above General Appearance:Obese, mild respiratory distress Head: normocephalic, Atraumatic Eyes: normal inspection, EOMI Neck: supple, Trachea midline Respiratory/Chest: Decreased coarse breath sounds, + minimal accessory muscle use, +Chest Tube Cardiovascular: S1, S2, No murmur Abdomen/GI:Soft, non tender, bowel sounds present Extremities/Musculoskeletal:normal inspection, no edema Neurologic/Psych: Alert, awake, oriented, grossly no focal deficits Skin: normal color, warm Results & Data Results & Data Vital Signs (Past 12 Hours) Vital Signs Temp Pulse Pulse Resp BP Pulse Ox O2 Del Method 06/28/24 13:07 90 30 H 92 High Flow Nasal Cannula 06/28/24 12:15 37.4 C 90 34 H 93 06/28/24 11:42 37.5 C 100 H 28 H 93 06/28/24 11:42 115/76 06/28/24 10:41 78/56 L 06/28/24 10:36 37.3 C 92 H 23 94 06/28/24 10:12 37.3 C 95 H 27 H 97 06/28/24 09:41 137/75 06/28/24 09:41 137/75 06/28/24 09:41 137/75 06/28/24 09:33 37.4 C 93 H 24 96 06/28/24 09:00 37.4 C 90 33 H 97 06/28/24 08:42 131/65 06/28/24 08:42 131/65 06/28/24 08:36 37.4 C 85 36 H 94 06/28/24 08:32 86 37 H 95 High Flow Nasal Cannula 06/28/24 08:31 89 37 H 96 High Flow Nasal Cannula 06/28/24 08:09 37.4 C 95 H 34 H 98 06/28/24 08:00 100 H 06/28/24 07:42 135/75 06/28/24 07:42 135/75 06/28/24 07:42 37.4 C 93 H 24 97 06/28/24 07:30 High Flow Nasal Cannula 06/28/24 07:21 37.4 C 96 H 25 H 97 06/28/24 06:41 143/94 H 06/28/24 06:36 37.4 C 97 H 39 H 96 06/28/24 06:09 37.4 C 101 H 27 H 137/72 95 06/28/24 05:03 37.6 C H 96 H 22 92 06/28/24 04:41 149/90 H 06/28/24 04:41 149/90 H 06/28/24 04:36 37.4 C 103 H 36 H 97 06/28/24 04:35 104 H 28 H 96 High Flow Nasal Cannula 06/28/24 04:09 37.5 C 101 H 24 96 06/28/24 03:42 141/95 H 06/28/24 03:42 141/95 H 06/28/24 03:27 37.4 C 96 H 24 136/68 97 09/24/24 02:42 37.4 C 98 H 24 96 O2 Flow Rate FiO2 06/28/24 13:07 60 35 06/28/24 12:15 06/28/24 11:42 06/28/24 11:42 06/28/24 10:41 06/28/24 10:36 06/28/24 10:12 06/28/24 09:41 06/28/24 09:41 06/28/24 09:41 06/28/24 09:33 06/28/24 09:00 06/28/24 08:42 06/28/24 08:42 06/28/24 08:36 06/28/24 08:32 60 35 06/28/24 08:31 60 35 06/28/24 08:09 06/28/24 08:00 06/28/24 07:42 06/28/24 07:42 06/28/24 07:42 06/28/24 07:30 06/28/24 07:21 06/28/24 06:41 06/28/24 06:36 06/28/24 06:09 06/28/24 05:03 06/28/24 04:41 06/28/24 04:41 06/28/24 04:36 06/28/24 04:35 60 45 06/28/24 04:09 06/28/24 03:42 06/28/24 03:42 06/28/24 03:27 06/28/24 02:42 Laboratory Results Short CBC 06/28/24 Range/Units 05:02 WBC 20.31 H (4.8-10.8) K/ul Hgb 11.6 L (12.0-16.0) g/dl Hct 35.5 L (37.0-47.0) % Plt Count 267 (130-400) K/uL BMP 06/28/24 05:02 Sodium 144 Potassium 4.0 Chloride 114 H Carbon Dioxide 20 L BUN 19 Creatinine 0.55 L Glucose 100 H Calcium 7.5 L
[2024-06-28 18:07] LABS: Fungitell (1-3)-B-D-Glucan <31 pg/mL
[2024-06-29 04:54] LABS: Basophils # (auto) 0.05 K/uL (0.00-0.20); Basophils % (auto) 0.2 %; Eosinophils # (auto) 0.02 K/uL (0.00-0.50); Eosinophils % (auto) 0.1 %; Hematocrit (blood only) 33.7 % (37.0-47.0); Hemoglobin 10.9 g/dl (12.0-16.0); Immature Granulocytes # (auto) 0.64 K/uL (0.01-0.20); Immature Granulocytes % (auto) 3.2 %; Lymphocytes # (auto) 0.62 K/uL (1.20-3.40); Lymphocytes % (auto) 3.1 %; Mean Corpuscular Hemoglobin 29.8 pg (25.0-34.0); Mean Corpuscular Hgb Conc 32.3 g/dL (32.0-36.0); Mean Corpuscular Volume 92.1 fL (80.0-100.0); Mean Platelet Volume 11.5 fL (9.4-12.4); Monocytes # (auto) 1.16 K/uL (0.11-0.59); Monocytes % (auto) 5.8 %; Neutrophils # (auto) 17.58 K/uL (1.40-6.50); Neutrophils % (auto) 87.6 %; Nucleated RBC # (auto) 0.02 K/uL (0.00-0.12); Nucleated RBC % (auto) 0.1 %; Platelet Count 306 K/uL (130-400); RDW Coefficient of Variation 14.2 % (11.5-14.5); Red Blood Count 3.66 M/uL (4.20-5.40); White Blood Count 20.07 K/ul (4.8-10.8)
[2024-06-29 05:05] LABS: BUN Creatinine Ratio 21.2 (10-20); Calcium 7.9 mg/dl (8.6-10.3); Creatinine Clr Calc Pharmacy 94.3 ml/min; Est GFR (African American) 110.6 ml/min; Est GFR (Non-African American) 95.5 ml/min; Magnesium 1.9 mg/dl (1.7-2.4); Phosphorus 3.5 mg/dl (2.5-4.9); Potassium 3.8 mmol/L (3.5-5.1)
[2024-06-29] MEDS: POTASSIUM CHLORIDE / WTR 20 MEQ/100 ML PLCT IV SCH (05:39)
[2024-06-29] MEDS: MAGNESIUM SULFATE / D5W 1 GM/100 ML BAG IV SCH (05:40)
--- NOTE | 2024-06-29 07:54 | XRay Report ---
XR chest 1V portable CLINICAL HISTORY: ptx TECHNIQUE: Single frontal radiograph of the chest was obtained. Comparison: Comparison is made to chest radiograph 06/28/2024 FINDINGS: Right portacatheter is seen. Cardiomegaly is noted. Pulmonary vascular congestion and interstitial ed geovanna are seen. Airspace opacities are noted. Small bilateral pleural effusions are noted. Small left a pical pneumothorax is partially visualized, likely unchanged. IMPRESSION: 1. Cardiomegaly and moderate pulmonary edema. Airspace opacities likely represent atelectasis with o r without superimposed aspiration, pneumonia, and/or alveolar edema. 2. Small bilateral pleural effusions. 3. Partial visualization of left pneumothorax. ACT 112: Negative or not required by law. Electronically signed by: Evan Ventura M.D. 06/29/2024 7:53 AM
--- NOTE | 2024-06-29 08:40 | Pulmonology Progress Note ---
Date of Service June 29, 2024 Assessment & Plan (1) Septic shock: (2) COVID-19: (3) Encephalopathy: (4) Pneumonia: Laterality: left Lung location: lower lobe of lung Pneumonia type: due to unspecified organism Qualified Code(s): J18.9 - Pneumonia, unspecified organism (5) Diarrhea: (6) ILD (interstitial lung disease): (7) Hypothyroidism: (8) Chronic kidney disease: (9) Chronic diastolic (congestive) heart failure: (10) Pancreatic insufficiency: (11) End of life care: Plan Impression: 73 YOF with interstitial lung disease and restrictive PFTs and hypoxemic and hypercarbic respiratory failure admitted with COVID and superimposed probable bacterial pneumonia. She was initially in the ICU on noninvasive positive pressure ventilation and transferred to the floor. She developed a pneumothorax which initially was stable but on 06/24/2024 had increased in size with the patient developing increasing respiratory distress. She was transferred to the ICU 06/24/2024 where chest tube was placed and she was intubated for hypoxemic hypercarbic respiratory failure. 24-hour events: Patient has remained weak and tachypneic. She has poor cough. Has required doses of morphine for comfort throughout the night. Recommendations: Neuro -weak Cardiac - Hypotension has resolved. Echo 06/20/2024 with an EF of 55 to 60%. Right ventricle normal in size and function. Aortic valve sclerotic without significant stenosis. Respiratory - Remains weak and with poor respiratory effort and cough. Follow- up chest CT today shows continued effusion and worsening pneumonia process as well. Will diurese. Prognosis remains guarded. GI - Failed swallow evaluation yesterday. GI prophylaxis with Pepcid. Continue home valacyclovir. RENAL/LYTES - Continue ICU electrolyte replacement protocol. Continue free water for hypernatremia -Cam catheter ENDO - Glycemic protocol per ICU orders. Continue levothyroxine. HEME - No acute needs. Subcu heparin for DVT prophylaxis, increase to every 8. Latest TSH 0.74 06/20/2024. ID - COVID-19 pneumonitis superimposed on probable bacterial pneumonia. Sputum cultures from 06/24/2024 grew rare Staphylococcus species. Patient completed 7 days of meropenem, vancomycin and 5 days of azithromycin. Antibiotics dis continued 06/26/2024. Pending Fungitell and fungal blood cultures. LINES/IV ACCESS - PIV, RT SCL Mediport, right femoral central venous catheter. DVT PROPHYLAXIS - SCDs, subcu heparin CRITICAL CARE TIME I have personally spent 45 minutes of critical care time in the direct management of this patient. This is a life/limb threatening event. This includes time spent evaluating patient, direct bedside care, chart review, placing orders, interpretation of diagnostic studies, discussion with consultants, patient, and family members, as well as other required patient management activities. This time is exclusive of all separately billable procedures, and teaching time and separate from and in addition to any other critical care service time. Admission and Anticipated Discharge Date Admission Date: June 19, 2024 Supervising Physician Co-Signing Physician Notes Agree with the note as above aside for any additions/options: I had extensive discussions with the patient and patient's sister, Adele, over the phone. We had discussions regarding her chances of recovery and chronic medical issues. Patient's siblings including her sister and the patient are all in agreement that she would likely transition to comfort measures only at this point. She feels that she is actively dying and is suffering at this time. Her sister will come in later today and after that we will transition to comfort measures only. I did adjust the chest tube prior to our conversation today and pulled it back about 5 cm. She appears to have evidence of hemothorax which is loculated. The loculated left upper lobe pneumothorax is stable. Patient's cough mechanism is quite poor and she is unable to clear any secretions. She would be a poor candidate for bronchoscopy at this time as she would likely need to be reintubated for bronchoscopy in order for this to be safely achieved. As above, will proceed with comfort measures once patient's sister has seen the patient in person. Subjective Patient seen and evaluated. She remains weak and tachypneic. Has required doses of morphine for comfort throughout the night. Physical Exam Physical Exam: VITAL SIGNS Vital signs and nursing notes were reviewed. GENERAL 74-year-old female appearing her stated age who is in no acute distress. Communicates well with provider and answers questions appropriately. SKIN Without rashes or lesions. NOSE Midline and without cyanosis. MOUTH/OROPHARYNX Without perioral cyanosis. NECK Neck with FROM. LUNGS Chest wall evaluation demonstrates normal chest wall A:P diameter. Auscultation reveals coarse breath sounds bilaterally. CARDIAC RRR with S1/S2. No murmur, rubs, or gallops appreciated. ABDOMEN Abdominal inspection demonstrates an obese abdomen. BS normoactive all four quadrants. No tenderness, palpable masses, or ascites noted. EXTREMITIES Nail clubbing not present. No peripheral cyanosis. No pretibial edema present. +3/5 radial palpated throughout. PSYCH A&Ox3 and cooperates fully with examiner. Results & Data Results & Data Vital Signs (Past 12 Hours) Vital Signs Temp Pulse Pulse Resp BP Pulse Ox O2 Del Method 06/29/24 08:06 37.3 C 101 H 32 H 94 06/29/24 08:00 High Flow Nasal Cannula 06/29/24 07:42 37.2 C 96 H 32 H 92 06/29/24 07:42 141/81 H 06/29/24 07:19 97 H 32 H 96 High Flow Nasal Cannula 06/29/24 07:00 37.1 C 95 H 28 H 94 06/29/24 06:42 158/134 H 06/29/24 06:42 158/134 H 06/29/24 06:42 158/134 H 06/29/24 06:39 37.1 C 94 H 35 H 93 06/29/24 06:03 37.1 C 88 26 H 153/58 H 93 06/29/24 05:42 153/58 H 06/29/24 05:36 37.2 C 89 26 H 94 06/29/24 04:45 37.2 C 97 H 22 90 06/29/24 04:43 143/69 H 06/29/24 04:39 37.2 C 109 H 24 94 06/29/24 04:12 37.0 C 94 H 24 94 06/29/24 03:45 71 26 H 94 High Flow Nasal Cannula 06/29/24 03:42 135/75 06/29/24 03:39 37.1 C 88 15 135/75 95 06/29/24 02:03 37.0 C 88 32 H 94 06/29/24 01:42 37.0 C 88 24 93 06/29/24 01:03 37.1 C 95 H 24 125/69 95 06/29/24 00:42 114/67 06/29/24 00:42 114/67 06/28/24 23:48 86 06/28/24 23:40 93 H 30 H 94 High Flow Nasal Cannula 06/28/24 22:41 136/63 06/28/24 22:41 136/63 06/28/24 22:41 136/63 06/28/24 22:39 37.3 C 94 H 22 93 06/28/24 22:09 37.4 C 104 H 22 94 06/28/24 21:41 141/80 H 06/28/24 21:36 37.3 C 93 H 20 94 06/28/24 21:02 96 H 06/28/24 20:52 High Flow Nasal Cannula 06/28/24 20:42 133/58 L 06/28/24 20:42 133/58 L O2 Flow Rate FiO2 06/29/24 08:06 06/29/24 08:00 50 30 06/29/24 07:42 06/29/24 07:42 06/29/24 07:19 60 30 06/29/24 07:00 06/29/24 06:42 06/29/24 06:42 06/29/24 06:42 06/29/24 06:39 06/29/24 06:03 06/29/24 05:42 06/29/24 05:36 06/29/24 04:45 06/29/24 04:43 06/29/24 04:39 06/29/24 04:12 06/29/24 03:45 60 30 06/29/24 03:42 06/29/24 03:39 06/29/24 02:03 06/29/24 01:42 06/29/24 01:03 06/29/24 00:42 06/29/24 00:42 06/28/24 23:48 06/28/24 23:40 60 30 06/28/24 22:41 06/28/24 22:41 06/28/24 22:41 06/28/24 22:39 06/28/24 22:09 06/28/24 21:41 06/28/24 21:36 06/28/24 21:02 06/28/24 20:52 06/28/24 20:42 06/28/24 20:42 PG Care Time/CCT Total # of Minutes Spent Total Time Spent with Patient: Total time spent is greater than 50% in coordination of care (as documented) at patient's floor/unit and/or counseling patient: Coding Level of Care Code 77129 CRITICAL CARE 1ST 30-74M Diagnoses Septic shock A41.9; R65.21 COVID-19 U07.1 Encephalopathy G93.40 Pneumonia J18.9 Laterality: left Lung location: lower lobe of lung Pneumonia type: due to unspecified organism Diarrhea R19.7 ILD (interstitial lung disease) J84.9 Hypothyroidism E03.9 Chronic kidney disease N18.9 Chronic diastolic (congestive) heart failure I50.32 Pancreatic insufficiency K86.89 End of life care Z51.5
[2024-06-29] MEDS ORDERED: VANCOMYCIN LEVEL ONE (09:30)
[2024-06-29] MEDS: FUROSEMIDE INJ 20 MG/2 ML VIAL IV ONE (09:49)
--- NOTE | 2024-06-29 11:25 | Pharmacy Report ---
Pharmacy PK ABX Note - Date of Service June 29, 2024 - Assessment and Plan Assessment 06/29 * Today is Day # 10 vancomycin therapy of planned 14 day course. * 06/24 sputum cx grew MRSA (with Vanco JOSE MIGUEL 1) * Level drawn this AM = 14.8mcg/mL. Current regimen of 1500mg IV Q 24 hrs still predicted to produce AUC/JOSE MIGUEL of 400-600. However pt is clinically worse today vs recent progress. Will adjust maint dose slightly to achieve a higher AUC/JOSE MIGUEL within the target range. * Chest CT has been ordered. Chest tube remains in place. Renal fxn stable, continued improvement 06/27 * Staph species growing from sputum culture obtained 06/24. This was well into the antibiotic course therefore growth occurred despite concurrent antibiotics. Patient improving (including pressor requirement), but was still febrile on 06/25 * Resuming vancomycin today, likely for an additional 7 days (total of 14 days) per discussion at ICU rounds. There will only be ~a 12 hour gap in vancomycin, not likely to be too clinically significant 06/25 * SCr w slight bump today, but not dissimilar to previous. Random level associated with therapeutic AUC. No change. 06/22 * 73 year old F receiving VANCOMYCIN + MEROPENEM + AZITHROMYCIN for treatment of septic shock likely from pulmonary +/- urinary source. * Pertinent microbiologic data includes: Positive MRSA Nasal Swab, resp BioFire + COVID19, BLCX no growth to date, UA did not show pyuria, UCx showed likely contamination * Day # 4 of antimicrobial therapy (planned 7 day course of vancomycin/meropenem per [facility]) * Continuing to show slow improvement per Provider assessment. Renal fxn stable Plan Vancomycin * Change maint dose to 1250mg IV every 18 hours. * Regimen is predicted to achieve target AUC/JOSE MIGUEL of 400-600 mg/L.hr * Plan to repeat level in 24-48 hours Pharmacy will continue to follow and will adjust dose/frequency as necessary. Thank you. Pharmacy has transitioned to AUC monitoring for vancomycin. AUC/JOSE MIGUEL is the preferred PK/PD target and is associated with decreased risk of nephrotoxicity compared to traditional trough targets.
--- NOTE | 2024-06-29 11:49 | CT Scan Report ---
CT SCAN OF THE CHEST WITHOUT IV CONTRAST CLINICAL HISTORY: Hypoxia COMPARISON STUDY: Chest x-ray dated 06/29/2024. A chest CT dated 06/19/2024. TECHNIQUE: CT scan of the thorax was performed from the thoracic inlet to the upper abdomen. Images are reviewed in the axial, sagittal, and coronal planes. IV contrast was not administered for this ex amination as per the referring clinician. A dose lowering technique was utilized adhering to the m[place]. The examination is significantly degraded by motion artifact. There is also streak artifact from the arms which could not be elevated above the chest. CT DOSE: 655.01 mGy.cm FINDINGS: Thyroid: Imaged portions of the thyroid gland are normal in size and attenuation. Thoracic aorta: The thoracic aorta is normal in caliber and demonstrates bovine variant arch anatomy. Heart: A right internal jugular central venous infusion port is in place. The heart is enlarged and w ithout pericardial effusion. An indeterminate metallic device is seen in the right ventricle. The pul monary trunk is dilated, measuring 3.7 cm in diameter. This suggests pulmonary artery hypertension. Lungs and pleural spaces: Evaluation of the lung parenchyma is compromised by motion artifact. A left -sided chest tube enters between the anterolateral fifth and sixth ribs. A small residual loculated p neumothorax is seen anteriorly extending from the apex to the base. The tip terminates at the medial left apex. There are small pleural effusions. Dense airspace consolidation is seen throughout the lef t lower lobe. Milder patchy airspace consolidation is seen throughout the right lung, greatest at the right lung base. The trachea is clear. Secretions are noted in the right mainstem bronchus. The left lower lobe airways are impacted. Mediastinum: There are numerous enlarged metastatic lymph nodes. An AP window node on image #87 measu res 11 mm in short axis. Ginger: Not well assessed without IV contrast. Axillae: There is no axillary lymphadenopathy. Upper abdomen: Numerous surgical clips are noted in the upper abdomen. Postsurgical change is noted i n the stomach. There is trace perisplenic ascites. Residual enteric contrast is noted in the upper ab domen. Skeletal structures: The skeletal structures are osteopenic. Degenerative change and hyperkyphosis is noted in the thoracic spine. Spinal hemangiomas are incidentally noted. No lytic or blastic bony les ions are seen. There are chronic/healed left-sided rib fractures. Soft tissues: There is mild edema and foci of subcutaneous gas in the left body wall. IMPRESSION: 1. Streak and motion compromised examination. 2. A left-sided chest tube is in place. There is a residual loculated pneumothorax seen anteriorly ex tending from the apex to the base. 3. Small pleural effusions, left larger than right. 4. Dense airspace consolidation is seen throughout the left lower lobe. This has progressed from 06/19. 5. Milder patchy airspace consolidation is seen throughout the right lung. This has also increased fr om previous. 6. There is impacted material throughout the left lower lobe airways. 7. Cardiomegaly with evidence of pulmonary artery hypertension. 8. Small volume perisplenic ascites. 9. Additional findings as above. ACT 112: Negative or not required by law. Electronically signed by: Chinedu Hicks M.D. 06/29/2024 11:47 AM
[2024-06-29 12:34] VITALS: O2SAT 99
--- NOTE | 2024-06-29 13:15 | Hospitalist Progress Note ---
Date of Service June 29, 2024 Assessment & Plan (1) Lethargy: Plan: 73-year-old female with past medical history significant for chronic pancreatitis, hyperlipidemia, hypothyroidism, secondary hyperparathyroidism of renal origin, history of hypoglycemia, COPD, complex sleep apnea syndrome, chronic diastolic CHF, CKD stage III, sick sinus syndrome status post pacemaker, mitral valve disorder, chronic venous insufficiency, history of renal disease, pulmonary hypertension, history of occlusion of left saphenous vein, GERD, status post partial gastrectomy ,postsurgical malabsorption, obstructive uropathy, osteoarthritis, restless leg syndrome, osteoporosis, dysgeusia, history of C. difficile, depression, KRYSTAL, history of kidney stones, gait disturbance ambulates with walker, lives alone was brought in because of confusion and lethargy and found to have COVID, UTI and pneumonia. Acute Metabolic encephalopathy Severe sepsis/Septic shock Acute hypoxic/hypercarbic respiratory failure COVID 19 Infection Multifocal Pneumonia Acute UTI Left Hydropneumothorax S/P left chest tube placement on 06/24/2024 Patient's presents with confusion and lethargy. --CT head:No acute intracranial process or significant alteration from the prior examination with chronic underlying presumed age-related findings. --CTA chest shows dense consolidation involving the left lower lobe; consistent with pneumonia with suspected interval developing necrotizing process. No cavitation noted. Also has areas of consolidation involving the right lung. Bronchi on right and left side with complete opacification of segmental branches; likely represent aspiration or endobronchial secretions. --MRSA nares positive --CT abdomen and pelvis findings suggestive of jejunitis/enteritis. --Blood cultureno growth till date --Urine culture3 types of organism; all high counts -Repeat cultures negative to date Completed 7-day course of meropenem, vancomycin and 5-day course of azithromycin wean oxygen as tolerated Extubated on 06/27/2024 Remains on high flow oxygen Aspiration precautions Continue nebulizers per critical care Continue percussion therapy Restarted vancomycin by critical care on 06/27/2024 for low grade fever and worsening leukocytosis Aggressive pulmonary hygiene Hypernatremia Monitor sodium levels Sodium 145 today Continue gentle IV fluids Jejunitis/enteritis Esophagitis Stool for C. difficile negative Completed antibiotic course Continue PPI Hypokalemia Hypomagnesemia Hypophosphatemia Replete electrolytes and monitor Elevated troponin Demand Ischemia High sensitive troponin 134 and admission peaked to 405.5 and down trended Echocardiogram shows EF of 55-60%. Chronic diastolic CHF Monitor for volume overload IV Lasix as needed History of COPD/asthma/ILD/pulmonary hypertension Continue home inhalers Nebs as needed Obstructive sleep apnea Noncompliant with BiPAP Continue supplemental oxygen Hypothyroidism Continue levothyroxine Sick sinus syndrome Status post pacemaker GERD continue famotidine and PPI H/O C. difficile Recently in March had course of p.o. vancomycin Monitor for any diarrhea C.diff negative H/O Gastric bypass Continue home medications H/O Chronic pancreatitis Pancreatic insufficiency Malabsorption Continue home meds when able to take H/O mood/anxiety disorder Continue home meds Chronic pain Neuropathy On Pregabalin oxycodone as needed Minimize narcotics to avoid excess sedation H/O chronic headaches Possible tension headaches per neurology On Lamictal and Cymbalta Seems recently started on Ubrelvy CKD stage III Creatinine Stable Monitor H/O Hypotension Requiring midodrine during admission in December 2023 Monitor BP History of chronic nephrolithiasis Secondary hyperparathyroidism On Calcitriol and calcium supplementation Endocrinology follow-up Ambulate dysfunction Ambulates with a walker PT/OT as able DVT prophylaxis Heparin SQ CODE STATUS DNI DNR Updated patient's sister over the phone regarding patient's critical condition. She reported that she had discussion with providers before regarding patient's medical condition. Patient had discussed with pulmonology/critical care regarding her wishes for comfort care measures. After discussion with patient's sister; patient to be evaluated for [facility] hospice. Referral sent by case management. Disposition Continues to be hospitalized due to several medical conditions. [facility] hospice evaluation later today. Time spent evaluating patient, direct bedside care, chart review, placing orders, interpretation of diagnostic studies, discussion with consultants, patient, and family members, as well as other required patient management activities is 50 minutes Please note the above document was generated using voice recognition software. It may contain grammatical, syntax or spelling errors. Any formal questions or concerns about the content, text or information contained within the body of this dictation should be directly addressed to the provider for clarification Admission and Anticipated Discharge Date Admission Date: June 19, 2024 Subjective Patient seen and examined at bedside. She appears to be lethargic; oriented to self. No significant events overnight Review of Systems Review of Systems: Unobtainable due to cognitive status Physical Exam Physical Exam: General- Lethargic, Opens her eyes to voice. appears very weak Head- atraumatic Eyes- PERRL. Neck- no JVD, Lungs- Decreased breath sounds at bilateral bases Heart- regular rate and rhythm; no murmur, no gallop. Abdomen- normal bowel sounds, soft, multiple surgical scars seen no distension Extremities- no pretibial edema, small superficial wound seen on left alberto Neuro- Drowsy;able to nods to questions. Results & Data Results & Data Vital Signs (Past 12 Hours) Vital Signs Temp Pulse Pulse Resp BP Pulse Ox O2 Del Method 06/29/24 12:29 119/74 06/29/24 12:24 37.1 C 97 H 31 H 99 06/29/24 12:00 37.2 C 89 28 H 97 06/29/24 11:29 142/76 H 06/29/24 11:29 142/76 H 06/29/24 11:24 37.5 C 108 H 30 H 97 06/29/24 11:06 37.4 C 110 H 34 H 99 06/29/24 10:15 37.4 C 101 H 32 H 100 06/29/24 10:05 106 H 96 Oxymask 06/29/24 09:42 142/92 H 06/29/24 09:42 37.4 C 101 H 26 H 93 06/29/24 09:18 37.3 C 101 H 37 H 87 L 06/29/24 08:42 147/79 H 06/29/24 08:42 147/79 H 06/29/24 08:42 147/79 H 06/29/24 08:30 37.3 C 97 H 31 H 93 06/29/24 08:06 37.3 C 101 H 32 H 94 06/29/24 08:00 High Flow Nasal Cannula 06/29/24 07:42 37.2 C 96 H 32 H 92 06/29/24 07:42 141/81 H 06/29/24 07:19 97 H 32 H 96 High Flow Nasal Cannula 06/29/24 07:00 37.1 C 95 H 28 H 94 06/29/24 06:42 158/134 H 06/29/24 06:42 158/134 H 06/29/24 06:42 158/134 H 06/29/24 06:39 37.1 C 94 H 35 H 93 06/29/24 06:03 37.1 C 88 26 H 153/58 H 93 09/25/24 05:42 153/58 H 06/29/24 05:36 37.2 C 89 26 H 94 06/29/24 04:45 37.2 C 97 H 22 90 06/29/24 04:43 143/69 H 06/29/24 04:39 37.2 C 109 H 24 94 06/29/24 04:12 37.0 C 94 H 24 94 06/29/24 03:45 71 26 H 94 High Flow Nasal Cannula 06/29/24 03:42 135/75 06/29/24 03:39 37.1 C 88 15 135/75 95 06/29/24 02:03 37.0 C 88 32 H 94 06/29/24 01:42 37.0 C 88 24 93 O2 Flow Rate FiO2 06/29/24 12:29 06/29/24 12:24 06/29/24 12:00 06/29/24 11:29 06/29/24 11:29 06/29/24 11:24 06/29/24 11:06 06/29/24 10:15 06/29/24 10:05 7 06/29/24 09:42 06/29/24 09:42 06/29/24 09:18 06/29/24 08:42 06/29/24 08:42 06/29/24 08:42 06/29/24 08:30 06/29/24 08:06 06/29/24 08:00 50 30 06/29/24 07:42 06/29/24 07:42 06/29/24 07:19 60 30 06/29/24 07:00 06/29/24 06:42 06/29/24 06:42 06/29/24 06:42 06/29/24 06:39 06/29/24 06:03 06/29/24 05:42 06/29/24 05:36 06/29/24 04:45 06/29/24 04:43 06/29/24 04:39 06/29/24 04:12 06/29/24 03:45 60 30 06/29/24 03:42 06/29/24 03:39 06/29/24 02:03 06/29/24 01:42
[2024-06-29 13:16] LABS: iSTAT Allen Test Pass; iSTAT Art Bld Gas pCO2 Correct 39 mmHg (35-46); iSTAT Art Bld Gas pH Corrected 7.331 (7.35-7.45); iSTAT Arterial Blood Gas HCO3 21 meg/L (19-24); iSTAT Arterial Blood Gas pCO2 39 mmHg (35-46); iSTAT Arterial Blood Gas pH 7.33 (7.35-7.45); iSTAT Arterial Blood Gas pO2 88 mmHg (80-95); iSTAT Arterial Blood Gas pO2 C 88; iSTAT Carbon Dioxide 22 mmol/L (24-31); iSTAT FiO2 7 %; iSTAT Hematocrit 33 % (37-47); iSTAT Hemoglobin 11.2 g/dl (12.0-16.0); iSTAT Potassium 3.9 mmol/L (3.3-5.0); iSTAT Site R Radial; iSTAT Sodium 144 mmol/L (135-144)
--- NOTE | 2024-06-29 13:22 | XRay Report ---
XR chest 1V portable CLINICAL HISTORY: s/p chest tube adjustment TECHNIQUE: Single frontal radiograph of the chest was obtained. Comparison: Comparison is made to chest radiograph 06/29/[address] chest 06/29/2024 FINDINGS: A port catheter is seen. Right chest tube appears withdrawn with the side-port lying outside the thor acic cavity. Cardiomegaly is noted. Multifocal airspace opacities are seen. IMPRESSION: The chest tube appears withdrawn compared to the prior exam, the side-port lies outside the thoracic cavity. Previously noted pneumothorax is not well seen. Stable multifocal airspace opacities. ACT 112: Negative or not required by law. Electronically signed by: Evan Ventura M.D. 06/29/2024 1:21 PM
[2024-06-29] MEDS ORDERED: LORazepam 2 MG/1 ML VIAL IV PRN (14:02)
[2024-06-29] MEDS ORDERED: MoRPHine BOLUS from BAG IV PRN (14:02)
[2024-06-29] MEDS ORDERED: STAT IV Infusion **Titration per Protocol STA (14:02)
[2024-06-29] MEDS ORDERED: ONDANSETRON INJ 2 MG/ML 2 ML VIAL IV PRN (14:02)
[2024-06-29] MEDS ORDERED: GLYCOPYRROLATE 0.2 MG/ML VIAL IV PRN (14:02)
[2024-06-29] MEDS: MoRPHine SULF/NSS 100 MG/100 ML BAG IV SCH (15:38)
[2024-06-29 16:12] VITALS: RESP 32; TEMP 99.1
[2024-06-29 16:17] VITALS: BP 141/96; PULSE 106
[2024-06-29] MEDS ORDERED: SODIUM BICARB 8.4% INJ 50 MEQ/50 ML SYR IV ONE (16:28)
[2024-06-29] MEDS ORDERED: SODIUM CHLORIDE 0.9% 10ML FLUSH IV ONE (16:28)
[2024-06-29] MEDS ORDERED: CALCIUM CHLORIDE 10% 10 ML SYR IV ONE (16:28)
--- NOTE | 2024-06-29 16:28 | Discharge Summary ---
Date of Service June 29, 2024 Admission HPI Per Admitting Provider 73-year-old female with past medical history significant for chronic pancreatitis, hyperlipidemia, hypothyroidism, secondary hyperparathyroidism of renal origin, history of hypoglycemia, COPD, complex sleep apnea syndrome, chronic diastolic CHF, CKD stage III, sick sinus syndrome status post pacemaker, mitral valve disorder, chronic venous insufficiency, history of renal disease, pulmonary hypertension, history of occlusion of left saphenous vein, GERD, status post partial gastrectomy ,postsurgical malabsorption, obstructive uropathy, osteoarthritis, restless leg syndrome, osteoporosis, dysgeusia, history of C. difficile, depression, KRYSTAL, history of kidney stones, gait disturbance ambulates with walker, lives alone was brought in because of confusion and lethargy and found to have COVID, UTI and pneumonia. Patient is currently lethargic could not get any history from the patient. As per ER patient is having some issues this morning and when neighbors checked on her she refused EMS transport at that time. Later in the afternoon when someone came to check on her she was very lethargic appearing and seems to have increased work of breathing and EMS was contacted. For EMS patient was hypoxic and was placed on oxygen nasal cannula and brought to the ER. In the ER seems she was able to answer questions appropriately without any focal deficit. She told the ER she has headache. And told that she was not vomiting. And was up all night with some generalized illness.Called sister and able to reach her. As per sister patient was in the sisters house yesterday evening. And she seemed okay. But she was coughing a lot. And told sister that she has decreased appetite. And was nauseous. She did not seem to have any fever. Not sure about diarrhea. Currently in ER blood pressures are soft. Has hypokalemia. VBG okay. Initial troponin 134 and repeat 211. BNP is 315. Procalcitonin 20Lactic acid 1.0 Urinalysis positive. Respiratory bio fire positive for COVID. Past medical history. As as mentioned above. Past surgical history. Abdominal surgery. Cystoscopy with insertion of stent in right side. Bilateral distal lumbosacral node. EGD. Partial colectomy with anastomosis. Cholecystectomy. Partial removal of stomach. Total hysterectomy. Pacemaker placement. Social history. No smoking. No alcohol use. No drug use. Family history. Sister has asthma. Sister has breast cancer. Hypertension. Father had cancer. Mother had diabetes. Glaucoma. Heart disorder. Hypertension. Admission Exam Per Admitting Provider General- Lethargic Head- atraumatic Eyes- PERRL. Neck- no JVD, Lungs- clear to auscultation mild rhonchi bilateral Heart- regular rate and rhythm; no murmur, no gallop. Abdomen- normal bowel sounds, soft, multiple surgical scars seen no distension Extremities- no pretibial edema, small superficial wound seen on left alberto Neuro- Drowsy; not responding to verbal or mild painful stimuli Principal Diagnosis Acute Metabolic encephalopathy Severe sepsis/Septic shock Acute hypoxic/hypercarbic respiratory failure COVID 19 Infection Multifocal Pneumonia Acute UTI Left Hydropneumothorax S/P left chest tube placement on 06/24/2024 Discharge Exam General- Lethargic, Opens her eyes to voice. appears very weak Head- atraumatic Eyes- PERRL. Neck- no JVD, Lungs- Decreased breath sounds at bilateral bases Heart- regular rate and rhythm; no murmur, no gallop. Abdomen- normal bowel sounds, soft, multiple surgical scars seen no distension Extremities- no pretibial edema, small superficial wound seen on left alberto Neuro- Drowsy;able to nods to questions. Discharge Data Allergies Allergy/AdvReac Type Severity Reaction Status Date / Time bethanechol Allergy Intermediate RASH, Verified 05/25/24 13:17 "FEELS FUNNY" Cephalosporins Allergy Intermediate RASH, Verified 05/25/24 13:17 DIARRHEA levofloxacin Allergy Intermediate RASH,TURNED Verified 05/25/24 13:17 RED Sulfa (Sulfonamide Allergy Intermediate Generalized Verified 05/25/24 13:17 Antibiotics) Rash ertapenem Allergy Mild RASH Verified 05/25/24 13:17 atropine Allergy Unknown ON [facility] MED Verified 05/25/24 13:17 LIST clindamycin Allergy Unknown Unknown Verified 05/25/24 13:17 dipyridamole Allergy Unknown PERSANTINE--ON Verified 05/25/24 13:17 GMG MED LIST droperidol Allergy Unknown Unknown Verified 05/25/24 13:17 meperidine [From Demerol] Allergy Unknown ? ALLERGY Verified 05/25/24 13:17 ON [facility] MED LIST promethazine Allergy Unknown UNKNOWN Verified 05/25/24 13:17 tobramycin Allergy Unknown UNKNOWN Verified 05/25/24 13:17 aspirin AdvReac Severe BLEEDING Verified 05/25/24 13:17 doxycycline AdvReac Severe severe Verified 05/25/24 13:17 Diarrhea, nausea metolazone AdvReac Severe ELECTROLYTE Verified 05/25/24 13:17 ISSUES--HYPOKALEMIA bupropion AdvReac Intermediate NERVOUS Verified 05/25/24 13:17 REACTION cephalexin AdvReac Intermediate GI SYMPTOMS Verified 05/25/24 13:17 morphine AdvReac Intermediate NERVOUS Verified 05/25/24 13:17 REACTION TO IT nitrofurantoin AdvReac Intermediate Vomiting Verified 05/25/24 13:17 [From Macrobid] prochlorperazine AdvReac Intermediate NERVOUS Verified 05/25/24 13:17 REACTION tedizolid AdvReac Intermediate GI SYMPTOMS Verified 05/25/24 13:17 venlafaxine [From Effexor] AdvReac Intermediate NERVOUS Verified 05/25/24 13:17 REACTION lamotrigine AdvReac Unknown tremors Verified 05/25/24 13:17 Consultations 06/19/24 20:55 ED Decision to Admit Stat 06/20/24 03:13 Consult [employer] Consultant Routine 06/20/24 08:00 Consult General Surgery Routine 06/23/24 09:30 Consult Pulmonology Routine 06/29/24 13:40 Consult Palliative Care Routine Ordered Studies 06/19/24 18:11 CT head/brain wo con Stat 06/19/24 18:12 CT abd pelvis wo con Stat 06/19/24 22:55 CT angio chest PE protocol Urgent 06/29/24 09:41 CT chest diagnostic wo con Urgent Hospital Course (1) Lethargy: 73-year-old female with past medical history significant for chronic pancreatitis, hyperlipidemia, hypothyroidism, secondary hyperparathyroidism of renal origin, history of hypoglycemia, COPD, complex sleep apnea syndrome, chronic diastolic CHF, CKD stage III, sick sinus syndrome status post pacemaker, mitral valve disorder, chronic venous insufficiency, history of renal disease, pulmonary hypertension, history of occlusion of left saphenous vein, GERD, status post partial gastrectomy ,postsurgical malabsorption, obstructive uropathy, osteoarthritis, restless leg syndrome, osteoporosis, dysgeusia, history of C. difficile, depression, KRYSTAL, history of kidney stones, gait disturbance ambulates with walker, lives alone was brought in because of confusion and lethargy and found to have COVID, UTI and pneumonia. Patient was admitted to ICU and required BiPAP for several days. Patient also required vasopressors for hemodynamic support She was also placed on IV antibiotics for the pneumonia. Patient required mechanical ventilation due to increasing respiratory distress. She also had left-sided chest tube placed for left hydropneumothorax. After extubation, patient continued to be lethargic, weak and continued to have respiratory failure requiring high flow oxygen. Discussion was done with patient and patient's sister regarding goals of care; she reported that she did not want repeat intubation and wanted to be made comfortable as possible. General inpatient hospice evaluation was done; patient was discharged to general inpatient hospice in the same hospital. Please note the above document was generated using voice recognition software. It may contain grammatical, syntax or spelling errors. Any formal questions or concerns about the content, text or information contained within the body of this dictation should be directly addressed to the provider for clarification Total Time Total Time Spent Total Time Spent (In Minutes): 45 Total Time Includes: Examination of the Patient, Discharge Planning, Medication Reconciliation, Communication With Other Providers and Other Discharge Plan Discharge Items Patient Disposition: Hospice - Medical Facility Reason For Visit: CONFUSION, COVID, PNEUMONIA, UTI, HYPOKALEMIA Discharge Diagnosis: Acute Metabolic encephalopathy Severe sepsis/Septic shock Acute hypoxic/hypercarbic respiratory failure COVID 19 Infection Multifocal Pneumonia Acute UTI Left Hydropneumothorax S/P left chest tube placement on 06/24/2024 Activity: Resume your previous activity Non-emergency contact: Primary Care Provider Call non-emergency contact if: you have any medication questions and your symptoms worsen Follow-up/Referrals: PCP,NO [Physician] - Diet: Regular Addtl Attending Provider Instructions: Discharge to hospice Pending Studies at Discharge: No Stand-Alone Forms: My [facility] Skilled Items Patient informed of condition?: Yes DNR: Yes Discharge Level of Care: Other Communicable Disease: No Discharge Prognosis: Deteriorating Lines: Peripheral IV Urinary Catheter: Yes Medications and DC Order Prescriptions: Continued ipratropium-albuterol 0.5 mg-3 mg(2.5 mg base)/3 mL solution for nebulization 3 ml INHALATION Q4H PRN (Reason: Shortness Of Breath Or Wheezing) cetirizine 10 mg tablet 10 mg PO DAILY PRN (Reason: Allergic Symptoms) valacyclovir 500 mg tablet 500 mg PO Q2D Rx Instructions: every other day lamotrigine 25 mg tablet 25 mg PO UD Rx Instructions: 25mg in am 50mg in pm levothyroxine 88 mcg tablet 88 mcg PO DAILY famotidine 20 mg tablet 20 mg PO HS metoclopramide HCl 5 mg tablet 5 mg PO TID PRN (Reason: Nausea And Vomiting) calcitriol 0.5 mcg capsule 0.5 mcg PO DAILY ropinirole 0.5 mg tablet 0.5 mg PO HS nitroglycerin 0.4 mg tablet, sublingual 0.4 mg sublingual UD PRN (Reason: Chest Pain) Rx Instructions: prn chest pain q 5min x 3 omeprazole 20 mg capsule,delayed release(DR/EC) 20 mg PO BID montelukast 10 mg tablet 10 mg PO HS albuterol sulfate 90 mcg/actuation HFA aerosol inhaler 2 puff INHALATION Q6H PRN (Reason: Shortness Of Breath Or Wheezing) ondansetron 4 mg tablet,disintegrating 4 mg PO TID PRN (Reason: Nausea And Vomiting) oxycodone 5 mg tablet 5 mg PO TID PRN (Reason: Severe Pain (Scale Score 7-10)) rosuvastatin 10 mg tablet 10 mg PO DAILY duloxetine 30 mg capsule,delayed release(DR/EC) 30 mg PO DAILY pregabalin 25 mg capsule 50 mg PO TID calcium carbonate-vitamin D3 600 mg-10 mcg (400 unit) tablet 2 tab PO TID Creon 24,000-76,000 -120,000 unit capsule,delayed release(DR/EC) 4 cap PO TID Prolia 60 mg/mL syringe 60 mg SUBCUT UD Rx Instructions: q 180days fluticasone furoate-vilanterol [Breo Ellipta] 200-25 mcg/dose blister with device 1 inh INHALATION DAILY zinc 25 mg Tablet 25 mg PO DAILY Discharge Orders: Discharge Order (Routine); Ordered 06/29/24 Ordered By: Souleymane Rodarte Admission Data Admit Date/Time: 06/19/24 22:22 Attending Provider: Souleymane Rodarte Admit Provider: Jerome Ventura Primary Care Provider: Petra Marx Other Providers: Gene Canales; Jerome Ventura; Danny Lara; [facility]; Elena Aj
[2024-06-30] MEDS ORDERED: VANCOMYCIN HCL 1,250 MG in SODIUM CHLORIDE 0.9% 250 ML IV SCH (04:00)
--- NOTE | 2024-06-30 11:48 | Discharge Summary ---
Date of Service June 30, 2024 Admission HPI Per Admitting Provider 73-year-old female with past medical history significant for chronic pancreatitis, hyperlipidemia, hypothyroidism, secondary hyperparathyroidism of renal origin, history of hypoglycemia, COPD, complex sleep apnea syndrome, chronic diastolic CHF, CKD stage III, sick sinus syndrome status post pacemaker, mitral valve disorder, chronic venous insufficiency, history of renal disease, pulmonary hypertension, history of occlusion of left saphenous vein, GERD, status post partial gastrectomy ,postsurgical malabsorption, obstructive uropathy, osteoarthritis, restless leg syndrome, osteoporosis, dysgeusia, history of C. difficile, depression, KRYSTAL, history of kidney stones, gait disturbance ambulates with walker, lives alone was brought in because of confusion and lethargy and found to have COVID, UTI and pneumonia. Patient was admitted to ICU and required BiPAP for several days. Patient also required vasopressors for hemodynamic support She was also placed on IV antibiotics for the pneumonia. Patient required mechanical ventilation due to increasing respiratory distress. She also had left-sided chest tube placed for left hydropneumothorax. After extubation, patient continued to be lethargic, weak and continued to have respiratory failure requiring high flow oxygen. Discussion was done with patient and patient's sister regarding goals of care; she reported that she did not want repeat intubation and wanted to be made comfortable as possible. General inpatient hospice evaluation was done; patient admitted under General inpatient Hospice. Admission Exam Per Admitting Provider General- Lethargic, Opens her eyes to voice. appears very weak Head- atraumatic Eyes- PERRL. Neck- no JVD, Lungs- Decreased breath sounds at bilateral bases Heart- regular rate and rhythm; no murmur, no gallop. Abdomen- normal bowel sounds, soft, multiple surgical scars seen no distension Extremities- no pretibial edema, small superficial wound seen on left alberto Neuro- Drowsy;able to nods to questions. Principal Diagnosis (1) Septic shock: (2) End of life care: (3) Hospice care: Discharge Exam Patient Discharge Data Allergies Allergy/AdvReac Type Severity Reaction Status Date / Time bethanechol Allergy Intermediate RASH, Verified 05/25/24 13:17 "FEELS FUNNY" Cephalosporins Allergy Intermediate RASH, Verified 05/25/24 13:17 DIARRHEA levofloxacin Allergy Intermediate RASH,TURNED Verified 05/25/24 13:17 RED Sulfa (Sulfonamide Allergy Intermediate Generalized Verified 05/25/24 13:17 Antibiotics) Rash ertapenem Allergy Mild RASH Verified 05/25/24 13:17 atropine Allergy Unknown ON GMG MED Verified 05/25/24 13:17 LIST clindamycin Allergy Unknown Unknown Verified 05/25/24 13:17 dipyridamole Allergy Unknown PERSANTINE--ON Verified 05/25/24 13:17 GMG MED LIST droperidol Allergy Unknown Unknown Verified 05/25/24 13:17 meperidine [From Demerol] Allergy Unknown ? ALLERGY Verified 05/25/24 13:17 ON GMG MED LIST promethazine Allergy Unknown UNKNOWN Verified 05/25/24 13:17 tobramycin Allergy Unknown UNKNOWN Verified 05/25/24 13:17 aspirin AdvReac Severe BLEEDING Verified 05/25/24 13:17 doxycycline AdvReac Severe severe Verified 05/25/24 13:17 Diarrhea, nausea metolazone AdvReac Severe ELECTROLYTE Verified 05/25/24 13:17 ISSUES--HYPOKALEMIA bupropion AdvReac Intermediate NERVOUS Verified 05/25/24 13:17 REACTION cephalexin AdvReac Intermediate GI SYMPTOMS Verified 05/25/24 13:17 morphine AdvReac Intermediate NERVOUS Verified 05/25/24 13:17 REACTION TO IT nitrofurantoin AdvReac Intermediate Vomiting Verified 05/25/24 13:17 [From Macrobid] prochlorperazine AdvReac Intermediate NERVOUS Verified 05/25/24 13:17 REACTION tedizolid AdvReac Intermediate GI SYMPTOMS Verified 05/25/24 13:17 venlafaxine [From Effexor] AdvReac Intermediate NERVOUS Verified 05/25/24 13:17 REACTION lamotrigine AdvReac Unknown tremors Verified 05/25/24 13:17 Consultations 06/19/24 20:55 ED Decision to Admit Stat 06/20/24 03:13 Consult Oracle Database Consultant Routine 06/20/24 08:00 Consult General Surgery Routine 06/23/24 09:30 Consult Pulmonology Routine 06/29/24 13:40 Consult Palliative Care Routine Ordered Studies 06/19/24 18:11 CT head/brain wo con Stat 06/19/24 18:12 CT abd pelvis wo con Stat 06/19/24 22:55 CT angio chest PE protocol Urgent 06/29/24 09:41 CT chest diagnostic wo con Urgent Hospital Course (1) Lethargy: 73-year-old female with past medical history significant for chronic pancreatitis, hyperlipidemia, hypothyroidism, secondary hyperparathyroidism of renal origin, history of hypoglycemia, COPD, complex sleep apnea syndrome, chronic diastolic CHF, CKD stage III, sick sinus syndrome status post pacemaker, mitral valve disorder, chronic venous insufficiency, history of renal disease, pulmonary hypertension, history of occlusion of left saphenous vein, GERD, sta tus post partial gastrectomy ,postsurgical malabsorption, obstructive uropathy, osteoarthritis, restless leg syndrome, osteoporosis, dysgeusia, history of C. difficile, depression, KRYSTAL, history of kidney stones, gait disturbance ambulates with walker, lives alone was brought in because of confusion and lethargy and found to have COVID, UTI and pneumonia. Patient was admitted to ICU and required BiPAP for several days. Patient also required vasopressors for hemodynamic support She was also placed on IV antibiotics for the pneumonia. Patient required mechanical ventilation due to increasing respiratory distress. She also had left-sided chest tube placed for left hydropneumothorax. After extubation, patient continued to be lethargic, weak and continued to have respiratory failure requiring high flow oxygen. Discussion was done with patient and patient's sister regarding goals of care; she reported that she did not want repeat intubation and wanted to be made comfortable as possible. General inpatient hospice was initiated. Patient at 1:10 AM on 06/30/2024. Please note the above document was generated using voice recognition software. It may contain grammatical, syntax or spelling errors. Any formal questions or concerns about the content, text or information contained within the body of this dictation should be directly addressed to the provider for clarification Total Time Total Time Spent Total Time Spent (In Minutes): 10 Total Time Includes: Examination of the Patient, Discharge Planning, Medication Reconciliation, Communication With Other Providers and Other Discharge Plan Discharge Items Patient Disposition: Hospice - Medical Facility Reason For Visit: CONFUSION, COVID, PNEUMONIA, UTI, HYPOKALEMIA Discharge Diagnosis: Acute Metabolic encephalopathy Severe sepsis/Septic shock Acute hypoxic/hypercarbic respiratory failure COVID 19 Infection Multifocal Pneumonia Acute UTI Left Hydropneumothorax S/P left chest tube placement on 06/24/2024 Activity: Resume your previous activity Non-emergency contact: Primary Care Provider Call non-emergency contact if: you have any medication questions and your symptoms worsen Follow-up/Referrals: PCP,NO [Physician] - Diet: Regular Addtl Attending Provider Instructions: Discharge to hospice Pending Studies at Discharge: No Stand-Alone Forms: My [facility] Skilled Items Patient informed of condition?: Yes DNR: Yes Discharge Level of Care: Other Communicable Disease: No Discharge Prognosis: Deteriorating Lines: Peripheral IV Urinary Catheter: Yes Medications and DC Order Prescriptions: Continued ipratropium-albuterol 0.5 mg-3 mg(2.5 mg base)/3 mL solution for nebulization 3 ml INHALATION Q4H PRN (Reason: Shortness Of Breath Or Wheezing) cetirizine 10 mg tablet 10 mg PO DAILY PRN (Reason: Allergic Symptoms) valacyclovir 500 mg tablet 500 mg PO Q2D Rx Instructions: every other day lamotrigine 25 mg tablet 25 mg PO UD Rx Instructions: 25mg in am 50mg in pm levothyroxine 88 mcg tablet 88 mcg PO DAILY famotidine 20 mg tablet 20 mg PO HS metoclopramide HCl 5 mg tablet 5 mg PO TID PRN (Reason: Nausea And Vomiting) calcitriol 0.5 mcg capsule 0.5 mcg PO DAILY ropinirole 0.5 mg tablet 0.5 mg PO HS nitroglycerin 0.4 mg tablet, sublingual 0.4 mg sublingual UD PRN (Reason: Chest Pain) Rx Instructions: prn chest pain q 5min x 3 omeprazole 20 mg capsule,delayed release(DR/EC) 20 mg PO BID montelukast 10 mg tablet 10 mg PO HS albuterol sulfate 90 mcg/actuation HFA aerosol inhaler 2 puff INHALATION Q6H PRN (Reason: Shortness Of Breath Or Wheezing) ondansetron 4 mg tablet,disintegrating 4 mg PO TID PRN (Reason: Nausea And Vomiting) oxycodone 5 mg tablet 5 mg PO TID PRN (Reason: Severe Pain (Scale Score 7-10)) rosuvastatin 10 mg tablet 10 mg PO DAILY duloxetine 30 mg capsule,delayed release(DR/EC) 30 mg PO DAILY pregabalin 25 mg capsule 50 mg PO TID calcium carbonate-vitamin D3 600 mg-10 mcg (400 unit) tablet 2 tab PO TID Creon 24,000-76,000 -120,000 unit capsule,delayed release(DR/EC) 4 cap PO TID Prolia 60 mg/mL syringe 60 mg SUBCUT UD Rx Instructions: q 180days fluticasone furoate-vilanterol [Breo Ellipta] 200-25 mcg/dose blister with device 1 inh INHALATION DAILY zinc 25 mg Tablet 25 mg PO DAILY Discharge Orders: Discharge Order (Routine); Ordered 06/29/24 Ordered By: Souleymane Rodarte Admission Data Admit Date/Time: 06/19/24 22:22 Attending Provider: Souleymane Rodarte Admit Provider: Jerome Ventura Primary Care Provider: Petra Marx Other Providers: Gene Canales; Jerome Ventura; Danny Lara; [facility]; Elena Aj
== END 2024-06-29 16:29 | disposition hospice, inpatient (51) | DRG 871 ==
LOC: ED 17:39 → SUATTDRO 22:22 → EDINP 22:22 → 1E 06-20 00:01 → 2S 06-22 19:09 → 1E 06-24 07:42

== ENCOUNTER 2024-06-29 16:53 | Inpatient (IN) ==
[2024-06-29] MEDS ORDERED: LORazepam 2 MG/1 ML VIAL IV PRN (16:56)
[2024-06-29] MEDS ORDERED: STAT IV Infusion **Titration per Protocol STA (16:56)
[2024-06-29] MEDS ORDERED: ONDANSETRON INJ 2 MG/ML 2 ML VIAL IV PRN (16:56)
[2024-06-29] MEDS ORDERED: MoRPHine SULFATE 2 MG/ML CARP IV PRN (16:56)
[2024-06-29] MEDS ORDERED: ALBUT/IPRATROP 3MG/0.5MG NEB 3 ML VIAL NEB PRN (16:58)
--- NOTE | 2024-06-29 17:02 | History & Physical Report ---
Date of Service June 29, 2024 Assessment & Plan (1) Septic shock: (2) End of life care: (3) Hospice care: Plan 73-year-old female with past medical history significant for chronic pancreatitis, hyperlipidemia, hypothyroidism, secondary hyperparathyroidism of renal origin, history of hypoglycemia, COPD, complex sleep apnea syndrome, chronic diastolic CHF, CKD stage III, sick sinus syndrome status post pacemaker, mitral valve disorder, chronic venous insufficiency, history of renal disease, pulmonary hypertension, history of occlusion of left saphenous vein, GERD, status post partial gastrectomy ,postsurgical malabsorption, obstructive uropathy, osteoarthritis, restless leg syndrome, osteoporosis, dysgeusia, history of C. difficile, depression, KRYSTAL, history of kidney stones, gait disturbance ambulates with walker, lives alone was brought in because of confusion and lethargy and found to have COVID, UTI and pneumonia on 06/19/2024 Patient was admitted to ICU and required BiPAP for several days. Patient also required vasopressors for hemodynamic support She was also placed on IV antibiotics for the pneumonia. Patient required mechanical ventilation due to increasing respiratory distress. She also had left-sided chest tube placed for left hydropneumothorax. After extubation, patient continued to be lethargic, weak and continued to have respiratory failure requiring high flow oxygen. Discussion was done with patient and patient's sister regarding goals of care; she reported that she did not want repeat intubation and wanted to be made comfortable as possible. Patient admitted under general inpatient hospice on 06/29/2024. Currently on morphine drip; titrate to comfort Ativan as needed Comfort care measures no Labs Please note the above document was generated using voice recognition software. It may contain grammatical, syntax or spelling errors. Any formal questions or concerns about the content, text or information contained within the body of this dictation should be directly addressed to the provider for clarification History of Present Illness Chief Complaint: General inpatient hospice Primary Care Provider: Petra Marx MD 73-year-old female with past medical history significant for chronic pancreatitis, hyperlipidemia, hypothyroidism, secondary hyperparathyroidism of renal origin, history of hypoglycemia, COPD, complex sleep apnea syndrome, chronic diastolic CHF, CKD stage III, sick sinus syndrome status post pacemaker, mitral valve disorder, chronic venous insufficiency, history of renal disease, pulmonary hypertension, history of occlusion of left saphenous vein, GERD, status post partial gastrectomy ,postsurgical malabsorption, obstructive uropathy, osteoarthritis, restless leg syndrome, osteoporosis, dysgeusia, history of C. difficile, depression, KRYSTAL, history of kidney stones, gait disturbance ambulates with walker, lives alone was brought in because of confusion and lethargy and found to have COVID, UTI and pneumonia. Patient was admitted to ICU and required BiPAP for several days. Patient also required vasopressors for hemodynamic support She was also placed on IV antibiotics for the pneumonia. Patient required mechanical ventilation due to increasing respiratory distress. She also had left-sided chest tube placed for left hydropneumothorax. After extubation, patient continued to be lethargic, weak and continued to have respiratory failure requiring high flow oxygen. Discussion was done with patient and patient's sister regarding goals of care; she reported that she did not want repeat intubation and wanted to be made comfortable as possible. General inpatient hospice evaluation was done; patient admitted under General inpatient Hospice Allergies Allergy/AdvReac Type Severity Reaction Status Date / Time bethanechol Allergy Intermediate RASH, Verified 05/25/24 13:17 "FEELS FUNNY" Cephalosporins Allergy Intermediate RASH, Verified 05/25/24 13:17 DIARRHEA levofloxacin Allergy Intermediate RASH,TURNED Verified 05/25/24 13:17 RED Sulfa (Sulfonamide Allergy Intermediate Generalized Verified 05/25/24 13:17 Antibiotics) Rash ertapenem Allergy Mild RASH Verified 05/25/24 13:17 atropine Allergy Unknown ON [facility]G MED Verified 05/25/24 13:17 LIST clindamycin Allergy Unknown Unknown Verified 05/25/24 13:17 dipyridamole Allergy Unknown PERSANTINE--ON Verified 05/25/24 13:17 GMG MED LIST droperidol Allergy Unknown Unknown Verified 05/25/24 13:17 meperidine [From Demerol] Allergy Unknown ? ALLERGY Verified 05/25/24 13:17 ON [facility] MED LIST promethazine Allergy Unknown UNKNOWN Verified 05/25/24 13:17 tobramycin Allergy Unknown UNKNOWN Verified 05/25/24 13:17 aspirin AdvReac Severe BLEEDING Verified 05/25/24 13:17 doxycycline AdvReac Severe severe Verified 05/25/24 13:17 Diarrhea, nausea metolazone AdvReac Severe ELECTROLYTE Verified 05/25/24 13:17 ISSUES--HYPOKALEMIA bupropion AdvReac Intermediate NERVOUS Verified 05/25/24 13:17 REACTION cephalexin AdvReac Intermediate GI SYMPTOMS Verified 05/25/24 13:17 morphine AdvReac Intermediate NERVOUS Verified 05/25/24 13:17 REACTION TO IT nitrofurantoin AdvReac Intermediate Vomiting Verified 05/25/24 13:17 [From Macrobid] prochlorperazine AdvReac Intermediate NERVOUS Verified 05/25/24 13:17 REACTION tedizolid AdvReac Intermediate GI SYMPTOMS Verified 05/25/24 13:17 venlafaxine [From Effexor] AdvReac Intermediate NERVOUS Verified 05/25/24 13:17 REACTION lamotrigine AdvReac Unknown tremors Verified 05/25/24 13:17 Home Medications Medication Instructions Recorded Confirmed Type albuterol sulfate 90 mcg/actuation 2 puff inhalation Q6H PRN 06/19/24 06/19/24 History aerosol inhaler Shortness Of Breath Or Wheezing calcitriol 0.5 mcg capsule 0.5 mcg PO DAILY 06/19/24 06/19/24 History calcium carbonate 600 mg-vitamin 2 tab PO TID 06/19/24 06/19/24 History D3 10 mcg (400 unit) tablet cetirizine 10 mg tablet 10 mg PO DAILY PRN Allergic 06/19/24 06/19/24 History Symptoms denosumab 60 mg/mL subcutaneous 60 mg subcut UD 06/19/24 06/19/24 History syringe (Prolia) duloxetine 30 mg capsule,delayed 30 mg PO DAILY 06/19/24 06/19/24 History release famotidine 20 mg tablet 20 mg PO HS 06/19/24 06/19/24 History fluticasone furoate 200 1 inh inhalation DAILY 06/19/24 06/19/24 History mcg-vilanterol 25 mcg/dose inhalation powder (Breo Ellipta) ipratropium 0.5 mg-albuterol 3 mg 3 ml inhalation Q4H PRN Shortness 06/19/24 06/19/24 History (2.5 mg base)/3 mL nebulization Of Breath Or Wheezing soln lamotrigine 25 mg tablet 25 mg PO UD 06/19/24 06/19/24 History levothyroxine 88 mcg tablet 88 mcg PO DAILY 06/19/24 06/19/24 History hymafh-zwsoobmf-ftterfq 4 cap PO TID 06/19/24 06/19/24 History 24,000-76,000-120,000 unit capsule,delayed rel (Creon) metoclopramide HCl 5 mg tablet 5 mg PO TID PRN Nausea And Vomiting 06/19/24 06/19/24 History montelukast 10 mg tablet 10 mg PO HS 06/19/24 06/19/24 History nitroglycerin 0.4 mg sublingual 0.4 mg sublingual UD PRN Chest Pain 06/19/24 06/19/24 History tablet omeprazole 20 mg capsule,delayed 20 mg PO BID 06/19/24 06/19/24 History release ondansetron 4 mg disintegrating 4 mg PO TID PRN Nausea And Vomiting 06/19/24 06/19/24 History tablet oxycodone 5 mg tablet 5 mg PO TID PRN Severe Pain (Scale 06/19/24 06/19/24 History Score 7-10) pregabalin 25 mg capsule 50 mg PO TID 06/19/24 06/19/24 History ropinirole 0.5 mg tablet 0.5 mg PO HS 06/19/24 06/19/24 History rosuvastatin 10 mg tablet 10 mg PO DAILY 06/19/24 06/19/24 History valacyclovir 500 mg tablet 500 mg PO Q2D 06/19/24 06/19/24 History zinc 25 mg tablet 25 mg PO DAILY 06/19/24 06/19/24 History Past Med/Surg History Problem List (Updated 06/29/24 @ 17:00 by Souleymane Rodarte MD) Hospice care End of life care Encephalopathy COVID-19 Septic shock Lethargy Pneumonia (Acute) Diarrhea Change in bowel habits Small bowel obstruction Complicated UTI (urinary tract infection) Weakness (Acute) Abdominal pain (Acute) Nausea & vomiting (Acute) Acute UTI (Acute) Chronic headache Cystitis Neuropathy Nausea (Acute) Dyspnea on exertion Recurrent major depression in remission Pacemaker [employer], implanted 12/2022 (bradycardia) > pt does not know when last checked Status post placement of cardiac pacemaker Sinus node dysfunction Bronchiectasis pt unaware ILD (interstitial lung disease) Osteoporosis History of esophageal dilatation Hypothyroidism Secondary hyperparathyroidism Chronic kidney disease stage 3b GERD without esophagitis Reactive hypoglycemia Vitamin D deficiency Obesity Sleep apnea complex sleep apnea, BIPAP (non-compliant) Chronic sinusitis Pancreatic insufficiency chronic pancreatitis Asthma Chronic diastolic (congestive) heart failure Follows with [facility] cardiology Pernicious anemia (08/08/13) Medical History History of small bowel obstruction Sinus node dysfunction Bronchiectasis ILD (interstitial lung disease) Secondary hyperparathyroidism Pancreatic insufficiency Neuropathy Pernicious anemia History of sepsis 2019 [facility] Reactive hypoglycemia HULL (dyspnea on exertion) GERD (gastroesophageal reflux disease) Chronic sinusitis Cystitis Chronic kidney disease stage 3, follows with Dr Roberts Chronic diastolic (congestive) heart failure follows with [facility] cardiology Sleep apnea complex sleep apnea, BIPAP (non-compliant) COPD (chronic obstructive pulmonary disease) Asthma Difficulty swallowing "trouble swallowing pills" History of DVT (deep vein thrombosis) remote hx, unknown etiology, Junctional bradycardia Pulmonary hypertension mild per 07/[address] report Atherosclerosis of both lower extremities Lumbar transverse process fracture Pt reports lower back detioriating - can't lie flat/sleep on a chair Pulmonary nodule seen on imaging study Wrist injury Scar tissue surrounding remote wrist ORIF several years ago resulting in intermittent inflammation per pt Bilateral nephrolithiasis current on CT scan H/O concussion Remote hx "a long time ago" Incisional hernia Abdominal (from multiple surgeries/feeding tube) Chronic urinary tract infection recent hospitalization for this at [facility] DC'ed 02/14/2024> pt reports no symptoms Chronic venous insufficiency Port-A-Cath in place right side due to poor vascular access Urinary leakage PUD (peptic ulcer disease) Had feeding tube for 28 years (has been removed for 11 years) Lumbar stenosis Short bowel syndrome Surgical History History of cystoscopy multiple H/O shoulder surgery RT arthroscopy 05/28/2021: LMA#4 atraumatic x 1 + PNB. Anesthesia postop progress note: "Pt denies SOB at this time. Block is functioning well. Vital signs stable and appropriate. Oxygenating well considering block placement and her comorbidities. Plan to discharge home with IS." S/P right rotator cuff repair S/P ureteral stent placement Status post laser lithotripsy of ureteral calculus History of prior ablation treatment Right LE in January 2020 and left LE 04/18/20 History of partial gastrectomy History of sinus surgery History of tonsillectomy and adenoidectomy History of total abdominal hysterectomy and bilateral salpingo-oophorectomy History of cholecystectomy History of appendectomy History of open reduction and internal fixation (ORIF) procedure left wrist + manipulation (01/2018) and I&D (10/2019) History of joint replacement Rt thumb History of knee replacement procedure of right knee History of esophagogastroduodenoscopy (EGD) with dilatation History of colonoscopy History of gastrointestinal surgery multiple History of cardiac cath 08/2019 ([facility])- essentially normal coronary arteries angiographically, no stents Family History Mother Family history of diabetes mellitus Sister Family history of diabetes mellitus Family history of breast cancer Father Esophageal cancer Other Family history non-contributory No family history of adverse response to anesthesia Social History Smoking Status: Never smoker Second Hand Exposure: No; Do You Dip or Chew Tobacco: No; Hx Alcohol Use: Yes Alcohol type: beer Hx Substance Use: No Preferred Language: Urdu Communication Ability: Unable Visual Impairment: No Limitations [employer] Required: No Beliefs That Will Affect Care: None marital status: Single Current Living Situation: Personal Care Facility Current Living Situation Comment: [facility] How many Children do You have: 0 Feels Safe at Home: Yes Assistive Devices: Denture - Upper, Denture - Lower, Glasses and Walker Physical Exam Physical Exam: General- Lethargic, Opens her eyes to voice. appears very weak Head- atraumatic Eyes- PERRL. Neck- no JVD, Lungs- Decreased breath sounds at bilateral bases Heart- regular rate and rhythm; no murmur, no gallop. Abdomen- normal bowel sounds, soft, multiple surgical scars seen no distension Extremities- no pretibial edema, small superficial wound seen on left alberto Neuro- Drowsy;able to nods to questions.
[2024-06-29 17:28] VITALS: PULSE 91; RESP 30; TEMP 99; O2SAT 93
[2024-06-29] MEDS: MoRPHine SULF/NSS 100 MG/100 ML BAG IV SCH (17:54)
[2024-06-29] MEDS: MoRPHine BOLUS from BAG IV PRN (20:36)
[2024-06-29] MEDS: SCOPOLAMINE 1 MG/72 HR TDSY PATCH TD SCH (20:51)
--- OUTSIDE RECORDS SUMMARY | 2024-06-30 06:45 | External Medical Summary | Summary of Care ---
Author Name Unknown Organization [facility] Address [address] [place] [address] Phone [phone] Care Team Providers Care Plastics Factory Worker Name Role Phone Petra Marx MD Primary Care Provider Encounter Details Date Type Department Care Team (Late st Contact Info) Description 06/23/2024 Population Health External Data Unspecified Department Allergies Active Allergy Reactions Criticality Noted Date Comments Aminoglycosides Nebcin Atropine ? allergy to Atropine Cephalosporins Keflin Dipyridamole Persantine Meperidine And Related ? allergy to Demerol Metolazone 10/03/2021 Severe hypokalemia Parasympathomimetics Urecholine Piperacillin Sod-Tazobactam So Rash 02/03 Prochlorperazine Salicylates ASA Sulfa Antibiotics Bactrim Venlafaxine 02/03/2013 Nervous reaction documented as of this encounter (statuses as of 06/27/2024) Medications Medication Sig Dispensed Refills Start Date [...] as needed for Pain, Moderate. 02/14/2024 Active [facility] Strip (Glucose Blood) Test as [...] BEFORE MEALS. 60 Tablet 05/08/2024 Active Creon 97401-77213 UNIT Oral Capsule Delayed Release Particles (Pancrelipase (Drn-Szlv-Zrev)) TAKE FOUR CAPSULES THREE TIMES DAILY 720 [...] as of this encounter (statuses as of 06/27/2024) Active Problems Problem Noted Date Diagnosed Date Colon polyps 05/24/2024 Overview: 05/2024. Done at [facility]. Three small. Clostridioides difficile infection 03/23/2024 Chronic diastolic congestive heart failure 11/09 Secondary hyperparathyroidism of renal origin Hypoglycemia 06/29/2023 Last Assessment & Plan: Glucose 103 during visit. Reordered freestyle Larisa-patient had previously. Follows with endocrinology at [facility] Stage 3a chronic kidney disease 04/16/2023 COPD, [...] as of this encounter (statuses as of 06/27/2024) Resolved Problems Problem Noted Date Diagnosed Date [...] rinse after steroid. Test performed by L[facility] CIGAR HEAD PUNCHER CPFT Moderate persistent asthma w ithout complication 10/11/2019 08/09/2021 Overview: In Check dial performed to assess inhaler technique: 11/25/19 Name of inhalers Albuterol Pass: Yes at 40L/min and Trelegy Ellipta Pass: Yes at 35L/min. Encourage to take deep breaths, use aero chamber, and rinse after steroid. Test performed by Lazarus CIGAR HEAD PUNCHER CPFT Ulcer of left lower extremit y, [...] rinse after steroid. Test performed by Lazarus CIGAR HEAD PUNCHER CPFT Groupl B, by GOLD 2017 classification [...] rinse after steroid. Test performed by Lazarus CIGAR HEAD PUNCHER CPFT Acute. Anemia 10/19/2017 08/09/2021 Malabsorption 10/19/2017 [...] as of this encounter (statuses as of 06/27/2024) Immunizations Name Administration Dates Next Due COVID-19 mRNA, LNP-s, No Pre serve, 2-Dose Series ([employer]) 07/12/2021,05/16/2021,11/18/2020,11/04 COVID-19, LNP-s, No Preserve , Josue-sucrose, Ages 12+ ([employer]) 05/16/2022 Covid-19, Mrna, Lnp-s, Pf, B ivalent, 30 Mcg, IM, 12 yrs and above ([employer]) 08/06/2022 Pneumococcal Conjugate Vacc, 13 Valent (Prevnar) [...] Care Team (Late st Contact Info) Description 06/30/2024 12:30 PM EDT Home Visit [facility], [facility] [address] [address] Sally Bonilla, RN [address] [address] 07/04/2024 10:30 AM EDT Office Visit Sleep Disorders Ctr [facility] [address] [phone] Andria Goldstein CRNP [address] [address] 07/11/2024 2:00 PM EDT Scheduled Telephone Interventional Pain Center, [facility] [address] [address] Darryn, Nurse Phone Call Interventional Pain [facility] [address] [address] 07/27/2024 12:45 PM EDT Immunization/Injec tion Hematology/Oncology Treatment, [address], [place] [phone] [place], Chair 2 Hem Onc [facility] [address] 08/03/2024 12:00 PM EDT Office Visit [facility] [address] [address] Petra Marx MD [address] [address] 08/19/2024 10:00 AM EST Office Visit [facility] [address] [address] Petra Marx MD [address] [place] [address] 08/30/2024 12:00 PM EST Office Visit Gastroenterology, [facility] [address] [place] [address] Breann Jerome CRNP [address] [place] [address] 09/14/2024 11:00 AM EST Nurse Only Ancillary [address] [place] [address] [place], Nurse [address] [place] [address] 02/02/2025 12:30 PM EDT Imaging Radiology [address] [place] [address] Health Maintenance Due Date Last Done Comments [...] Additional history exists CKD HGB USE SMARTSET 33081 03/17/202503/17, 03/17/2024, 12/25/2023, Additional history exists CKD PHOS USE SMARTSET 39759 03/17/202503/05, 02/18/2024, 05/01/2023, Additional history exists O2 [...] D LEVEL ONCE IN A LIFETIME-USE SMARTSET# 77526 Completed 02/18/2024, 05/01/2023, 12/28/2014, Additional history exists [...] this encounter Medical Devices Implanted Type Area Television Production Assistant Device Identifier Shelf Expiration Date Model / Serial / Lot Port Power Mri W/8fr Cath - [id number] Implanted:Qty : 1 on 11/02/2017 by Ignacio Guevara MD at OR [facility] Right: Internal Jugular CR BARD : PERIPHERAL VASCULAR 07/04/2019 [id number] / / [id number] documented as of this encounter Advance Directives Healthcare Agents on File Name Relationship Healthcare Agent Relationship Communication Ivonne Michelle Other - (no specific identity) Health Care Agent Care Teams Plastics Factory Worker Relationship Specialty Start Date End Date Petra Marx MD [address] [address] PCP - General Internal Medicine 11/09/23 documented as of this encounter
--- OUTSIDE RECORDS SUMMARY | 2024-06-30 06:46 | External Medical Summary | Summary of Care ---
Author Name Unknown Organization [facility] Address [address] [place] [address] Phone [phone] Care Team Providers Care Drivers License Examiner Name Role Phone Petra Marx MD Primary Care Provider Encounter Details Date Type Department Care Team (Latest Contact Info) Description 12/10/2023 11:40 AM EST - 12/10/2023 11:59 PM [facility] Hospital Encounter Radiology Film File [address] [place] [address] Discharge Disposition: Home - Self Care Allergies Active Allergy Reactions Criticality Noted Date Comments Aminoglycosides Nebcin Atropine ? allergy to Atropine Cephalosporins Keflin Dipyridamole Persantine Meperidine And Related ? allergy to Demerol Metolazone 10/03/2021 Severe hypokalemia Parasympathomimetics Urecholine Piperacillin Sod-Tazobactam So Rash 02/03 Prochlorperazine Salicylates ASA Sulfa Antibiotics Bactrim Venlafaxine 02/03/2013 Nervous reaction documented as of this encounter (statuses as of 06/25/2024) Medications Medication Sig Dispensed Refills Start Date [...] continues, call 911. 25 Tablet 09/08/2023 Active documented as of this encounter (statuses as of 06/25/2024) Active Problems Problem Noted Date Diagnosed Date Colon polyps 05/24/2024 Overview: 05/2024. Done at [facility]. Three small. Clostridioides difficile infection 03/23/2024 Chronic diastolic congestive heart failure 11/09 Secondary hyperparathyroidism of renal origin Hypoglycemia 06/29/2023 Last Assessment & Plan: Glucose 103 during visit. Reordered freestyle Larisa-patient had previously. Follows with endocrinology at [facility] Stage 3a chronic kidney disease 04/16/2023 [...] as of this encounter (statuses as of 06/25/2024) Resolved Problems Problem Noted Date Diagnosed Date [...] rinse after steroid. Test performed by [facility]us PROVIDER NETWORK MGR CPFT Moderate persistent asthma w ithout complication 10/11/2019 08/09/2021 Overview: In Check dial performed to assess inhaler technique: 11/25/19 Name of inhalers Albuterol Pass: Yes at 40L/min and Trelegy Ellipta Pass: Yes at 35L/min. Encourage to take deep breaths, use aero chamber, and rinse after steroid. Test performed by Lazarus PROVIDER NETWORK MGR CPFT Ulcer of left lower extremit y, [...] rinse after steroid. Test performed by Lazarus PROVIDER NETWORK MGR CPFT Groupl B, by GOLD 2017 classification [...] rinse after steroid. Test performed by Lazarus PROVIDER NETWORK MGR CPFT Acute. Anemia 10/19/2017 08/09/2021 Malabsorption 10/19/2017 [...] as of this encounter (statuses as of 06/25/2024) Immunizations Name Administration Dates Next Due COVID-19 mRNA, LNP-s, No Pre serve, 2-Dose Series ([employer]) 07/12/2021,05/16/2021,11/18/2020,11/04 COVID-19, LNP-s, No Preserve , Josue-sucrose, Ages 12+ (Pfizer) 05/16/2022 Covid-19, Mrna, Lnp-s, Pf, B ivalent, 30 Mcg, IM, 12 yrs and above ([employer]) 08/06/2022 Pneumococcal Conjugate Vacc, 13 Valent (Prevnar) [...] Description 06/30/2024 12:30 PM EDT [facility] [address] [address] Sally Bonilla, RANDELL [address] [place] [address] [address] 07/04/2024 10:30 AM EDT Office Visit Sleep Disorders Ctr [facility] [address] [phone] Andria Goldstein CRNP [address] [place] [address] 07/11/2024 2:00 PM EDT Scheduled Telephone Interventional Pain Center, [facility] [address] [address] Darryn, Nurse Phone Call Interventional Pain [facility] [address] [address] 07/27/2024 12:45 PM EDT Immunization/Injec tion Hematology/Oncology Treatment, [place] [address] [place] [phone] Jolanta, Chair 2 Hem Onc [facility] [address] [place] [address] 08/03/2024 12:00 PM EDT Office Visit Family Practice [facility] [address] [address] Petra Marx MD [address] [place] [address] 08/19/2024 10:00 AM EST Office Visit Family Practice [facility] [address] [place] [address] Petra Marx MD [address] [place] [address] 08/30/2024 12:00 PM EST Office Visit Gastroenterology, [facility] [address] [address] Breann Jerome CRNP [address] [place] [address] 09/14/2024 11:00 AM EST Nurse Only Ancillary [address] [place] [address] [place], Nurse [address] [place] [address] 02/02/2025 12:30 PM EDT Imaging Radiology [address] [place] [address] Health Maintenance Due Date Last Done Comments [...] Additional history exists CKD HGB USE SMARTSET 06958 03/17/202503/17, 03/17/2024, 12/25/2023, Additional history exists CKD PHOS USE SMARTSET 38635 03/17/202503/05, 02/18/2024, 05/01/2023, Additional history exists O2 [...] D LEVEL ONCE IN A LIFETIME-USE SMARTSET# 00901 Completed 02/18/2024, 05/01/2023, 12/28/2014, Additional history exists [...] this encounter Medical Devices Implanted Type Area Mc Kay Stitcher Device Identifier Shelf Expiration Date Model / Serial / Lot Port Power Mri W/8fr Cath - [id number] Implanted:Qty : 1 on 11/02/2017 by Ignacio Guevara MD at OR [facility] Right: Internal Jugular CR BARD : PERIPHERAL VASCULAR 07/04/2019 [id number] / / [id number] documented as of this encounter Procedures Procedure Name Priority Date/Time Associated Diagnosis Comments RADIOLOGY EXAM - GENERAL RAD (IMAGES ONLY,NO REPORT) Routine 12/10/2023 11:40 AM EST documented in this encounter Results * RADIOLOGY EXAM - GENERAL RAD (IMAGES ONLY,NO REPORT) (12/10/2023 11:40 AM EST) 12/10/2023 11:4 0 AM EST Narrative Scheduling, Silent - 06/24/2024 12:20 PM EDT This is an imaging study not interpreted or resulted by a [facility] or [facility] contracted radiologist. Petra Marx MD RADIOLOGY (RAD GENERAL) documented in this encounter Advance Directives Healthcare Agents on File Name Relationship Healthcare Agent Relationship Communication Ivonne Michelle Other - (no specific identity) Health Care Agent Care Teams Drivers License Examiner Relationship Specialty Start Date End Date Petra Marx MD [address] [place] [address] PCP - General Internal Medicine 11/09/23 documented as of this encounter
--- OUTSIDE RECORDS SUMMARY | 2024-06-30 06:46 | External Medical Summary | Summary of Care ---
Author Name Unknown Organization [facility] Address [address] [place] [address] Phone [phone] Care Team Providers Care Industrial Aerial Installer Name Role Phone Petra Marx MD Primary Care Provider Encounter Details Date Type Department Care Team (Latest Contact Info) Description 02/10/2024 3:55 PM EDT - 02/10/2024 11:59 PM EDT Hospital Encounter Radiology Film File [address] [place] [address] Discharge Disposition: Home - Self [...] Capsule before bedtime. 60 Capsule 12/25/2023 Active Ipratropium-Albute rol 0.5-2.5 (3) MG/3ML Inhalation [...] morning. 90 Capsule 1 01/22/2024 Active Calcium Carb-Cholecalcifer ol 600-10 MG-MCG Oral TabletIndications: Postsurgical malabsorption, not elsewhere classified TAKE TWO TABLETS THREE TIMES A DAY ( AM, NOON & BEDTIME) 180 Tablet 5 01/26/2024 Active documented as of this encounter (statuses as of 06/25/2024) Active Problems Problem Noted Date Diagnosed Date Colon polyps 05/24/2024 Overview: 05/2024. Done at [facility]. Three small. Clostridioides difficile infection 03/23/2024 Chronic diastolic congestive heart failure 11/09 Secondary hyperparathyroidism of renal origin Hypoglycemia 06/29/2023 Last Assessment & Plan: Glucose 103 during visit. Reordered freestyle Larisa-patient had previously. Follows with endocrinology at [facility] Stage 3a chronic kidney disease [...] rinse after steroid. Test performed by [facility] LIFE INSURANCE UNDERWRITER CPFT Moderate persistent asthma w ithout complication 10/11/2019 08/09/2021 Overview: In Check dial performed to assess inhaler technique: 11/25/19 Name of inhalers Albuterol Pass: Yes at 40L/min and Trelegy Ellipta Pass: Yes at 35L/min. Encourage to take deep breaths, use aero chamber, and rinse after steroid. Test performed by Lazarus LIFE INSURANCE UNDERWRITER CPFT Ulcer of left lower extremit y, [...] rinse after steroid. Test performed by Lazarus LIFE INSURANCE UNDERWRITER CPFT Groupl B, by GOLD 2017 classification [...] rinse after steroid. Test performed by [facility]us LIFE INSURANCE UNDERWRITER CPFT Acute. Anemia 10/19/2017 08/09/2021 Malabsorption 10/19/2017 [...] mRNA, LNP-s, No Pre serve, 2-Dose Series ([employer]) 07/12/2021,05/16/2021,11/18/2020,11/04 COVID-19, LNP-s, No Preserve , Josue-sucrose, [...] No 11/19/2023 Does the household have a [facility] iron[facility] hospital[facility] source of income? (Household - for ages [...] Description 06/30/2024 12:30 PM EDT Home Visit [facility] [address] [address] Sally Bonilla, RANDELL [address] [address] [address] 07/04/2024 10:30 AM EDT Office Visit Sleep Disorders Ctr [facility] [address] [phone] Andria Goldstein CRNP [address] [address] 07/11/2024 2:00 PM EDT Scheduled Telephone Interventional Pain Center, [facility] [address] [address] Darryn, Nurse Phone Call Interventional Pain [facility] [address] [address] 07/27/2024 12:45 PM EDT Immunization/Injec tion Hematology/Oncology Treatment, [place] [address] [place] [phone] Jolanta, Chair 2 Hem Onc [place] [address] [place] [address] 08/03/2024 12:00 PM EDT Office Visit Family Practice [facility] [address] [address] Petra Marx MD [address] [place] [address] 08/19/2024 10:00 AM EST Office Visit Family Practice [facility] [address] [address] Petra Marx MD [address] [place] [address] 08/30/2024 12:00 PM EST Office Visit Gastroenterology, [facility] [address] [address] Breann Jerome CRNP [address] [address] 09/14/2024 11:00 AM EST Nurse Only Ancillary [address] [place] [address] Yanney, Nurse Annual Wellness [address] [place] [address] [place] [address] 02/02/2025 12:30 PM EDT Imaging Radiology [address] [place] [address] Health Maintenance Due Date Last Done Comments [...] Additional history exists CKD HGB USE SMARTSET 19540 03/17/202503/17, 03/17/2024, 12/25/2023, Additional history exists CKD PHOS USE SMARTSET 31988 03/17/202503/05, 02/18/2024, 05/01/2023, Additional history exists O2 ASSESSMENT COMPLETED IN PAST YEAR FOR COPD 05/30/2025 05/30/2024 DXA Scan 07/23/2025 07/23/2023, 07/05, 03/18/2022, Additional history exists DTap/Tdap Vaccines (2 - Td or Tdap) 05/21/2028 05/21/2018 (Declined) Colonoscopy 05/04/2034 05/04/2024, 07/3 10/2023, 08/11/2016 Colorectal Cancer Screening 05/04/2034 Pneumococcal Vaccine: 65+ Years Completed 07/06/2019, 05/21/2018 Zoster Vaccines Completed 04/11/2020, 10/11/2019 Alpha-1 Antitrypsin Completed 06/18/2020 COVID-19 Vaccine Discontinued 07/01/2023, 11/2021, 05/16/2022, Additional history exists VITAMIN D LEVEL ONCE IN A LIFETIME-USE SMARTSET# 48961 Completed 02/18/2024, 05/01/2023, 12/28/2014, Additional history exists [...] this encounter Medical Devices Implanted Type Area Cash Checker Device Identifier Shelf Expiration Date Model / Serial / Lot Port Power Mri W/8fr Cath - [id number] Implanted:Qty : 1 on 11/02/2017 by Ignacio Guevara MD at OR [facility] Right: Internal Jugular CR BARD : PERIPHERAL VASCULAR 07/04/2019 [id number] / / [id number] documented as of this encounter Procedures Procedure Name Priority Date/Time Associated Diagnosis Comments RADIOLOGY EXAM - CT (IMAGES ONLY, NO REPORT) Routine 02/10/2024 3:55 PM EDT documented in this encounter Results * RADIOLOGY EXAM - CT (IMAGES ONLY, NO REPORT) (02/10/2024 3:55 PM EDT) 02/10/2024 3:51 PM EDT Narrative Scheduling, Silent - 06/24/2024 10:37 AM EDT This is an imaging study not interpreted or resulted by a [facility] or [facility] contracted radiologist. Petra Marx MD RAD CT documented in this encounter Advance Directives Healthcare Agents on File Name Relationship Healthcare Agent Relationship Communication Ivonne Michelle Other - (no specific identity) Health Care Agent Care Teams Industrial Aerial Installer Relationship Specialty Start Date End Date Petra Marx MD [address] [address] PCP - General Internal Medicine 11/09/23 documented as of this encounter
--- OUTSIDE RECORDS SUMMARY | 2024-06-30 06:46 | External Medical Summary | Summary of Care ---
Author Name Unknown Organization [facility] Address [address] [place] [address] Phone [phone] Care Team Providers Care House Superintendent Name Role Phone Petra Marx MD Primary Care Provider Encounter Details Date Type Department Care Team (Latest Contact Info) Description 02/06/2024 9:00 AM EDT - 02/06/2024 11:59 PM EDT Hospital Encounter Radiology Film File [address] [place] [address] Discharge Disposition: Home - Self [...] Colon polyps 05/24/2024 Overview: 05/2024. Done at [facility]. Three small. Clostridioides difficile infection 03/23/2024 Chronic diastolic congestive heart failure 11/09 Secondary hyperparathyroidism of renal origin Hypoglycemia 06/29/2023 Last Assessment & Plan: Glucose 103 during visit. Reordered freestyle Larisa-patient had previously. Follows with endocrinology at [facility] Stage 3a chronic kidney disease 04/16/2023 [...] after steroid. Test performed by [facility] GLOBAL PRESIDENT CPFT Moderate persistent asthma w ithout complication 10/11/2019 08/09/2021 Overview: In Check dial performed to assess inhaler technique: 11/25/19 Name of inhalers Albuterol Pass: Yes at 40L/min and Trelegy Ellipta Pass: Yes at 35L/min. Encourage to take deep breaths, use aero chamber, and rinse after steroid. Test performed by Lazarus GLOBAL PRESIDENT CPFT Ulcer of left lower extremit y, [...] after steroid. Test performed by Lazarus GLOBAL PRESIDENT CPFT Groupl B, by GOLD 2017 classification [...] after steroid. Test performed by Lazarus GLOBAL PRESIDENT CPFT Acute. Anemia 10/19/2017 08/09/2021 Malabsorption 10/19/2017 [...] mRNA, LNP-s, No Pre serve, 2-Dose Series ([employer]) 07/12/2021,05/16/2021,11/18/2020,11/04 COVID-19, LNP-s, No Preserve , Josue-sucrose, [...] No 11/19/2023 Does the household have a [facility] source of income? (Household - for [...] Description 06/30/2024 12:30 PM EDT Home Visit [facility] [address] [address] Sally Bonilla, RANDELL [address] [address] 07/04/2024 10:30 AM EDT Office Visit Sleep Disorders [facility]tr [facility] [address] [phone] Andria Goldstein CRNP [address] [address] 07/11/2024 2:00 PM EDT Scheduled Telephone Interventional Pain Center, [facility] [address] [address] Darryn, Nurse Phone Call Interventional Pain [facility] [address] [address] 07/27/2024 12:45 PM EDT Immunization/Injec tion Hematology/Oncology Treatment, [place] [address] [place] [phone] Jolanta, Chair 2 Hem Onc Scenery [address] [place] [address] 08/03/2024 12:00 PM EDT Office Visit Family Practice [facility] [address] [address] Petra Marx MD [address] [address] 08/19/2024 10:00 AM EST Office Visit Family Practice [facility] [address] [address] Petra Marx MD [address] [place] [address] 08/30/2024 12:00 PM EST Office Visit Gastroenterology, [facility] [address] [address] Breann Jerome CRNP [address] [address] 09/14/2024 11:00 AM EST Nurse Only Ancillary [address] [place] [address] Yanney, Nurse Annual Wellness [address] [place] [address] [place] [address] 02/02/2025 12:30 PM EDT Imaging Radiology [address] [place] [address] Health Maintenance Due Date Last Done Comments [...] Additional history exists CKD HGB USE SMARTSET 85145 03/17/202503/17, 03/17/2024, 12/25/2023, Additional history exists CKD PHOS USE SMARTSET 42056 03/17/202503/05, 02/18/2024, 05/01/2023, Additional history exists O2 ASSESSMENT COMPLETED IN PAST YEAR FOR COPD 05/30/2025 05/30/2024 DXA Scan 07/23/2025 07/23/2023, 07/05, 03/18/2022, Additional history exists DTap/Tdap Vaccines (2 - Td or Tdap) 05/21/2028 05/21/2018 (Declined) Colonoscopy 05/04/2034 05/04/2024, 0710/2023, 08/11/2016 Colorectal Cancer Screening 05/04/2034 Pneumococcal Vaccine: 65+ Years Completed 07/06/2019, 05/21/2018 Zoster Vaccines Completed 04/11/2020, 10/11/2019 Alpha-1 Antitrypsin Completed 06/18/2020 COVID-19 Vaccine Discontinued 07/01/2023, 11/2021, 05/16/2022, Additional history exists VITAMIN D LEVEL ONCE IN A LIFETIME-USE SMARTSET# 66537 Completed 02/18/2024, 05/01/2023, 12/28/2014, Additional history exists [...] this encounter Medical Devices Implanted Type Area Scale Clerk Device Identifier Shelf Expiration Date Model / Serial / Lot Port Power Mri W/8fr Cath - [id number] Implanted:Qty : 1 on 11/02/2017 by Ignacio Guevara MD at OR [facility] Right: Internal Jugular CR BARD : PERIPHERAL VASCULAR 07/04/2019 [id number] / / [id number] documented as of this encounter Procedures Procedure Name Priority Date/Time Associated Diagnosis Comments RADIOLOGY EXAM - GENERAL RAD (IMAGES ONLY,NO REPORT) Routine 02/06/2024 9:00 AM EDT documented in this encounter Results * RADIOLOGY EXAM - GENERAL RAD (IMAGES ONLY,NO REPORT) (02/06/2024 9:00 AM EDT) 02/06/2024 8:59 AM EDT Narrative Scheduling, Silent - 06/24/2024 11:35 AM EDT This is an imaging study not interpreted or resulted by a [facility] or [facility] contracted radiologist. Petra Marx MD RADIOLOGY (RAD GENERAL) documented in this encounter Advance Directives Healthcare Agents on File Name Relationship Healthcare Agent Relationship Communication Ivonne Michelle Other - (no specific identity) Health Care Agent Care Teams House Superintendent Relationship Specialty Start Date End Date Petra Marx MD [address] [address] PCP - General Internal Medicine 11/09/23 documented as of this encounter
--- OUTSIDE RECORDS SUMMARY | 2024-06-30 06:46 | External Medical Summary | Summary of Care ---
Author Name Unknown Organization [facility] Address [address] [place] [address] Phone [phone] Care Team Providers Care Director Statistical Programming Name Role Phone Petra Marx MD Primary Care Provider Encounter Details Date Type Department Care Team (Latest Contact Info) Description 11/29/2023 8:55 PM EST - 11/29/2023 11:59 PM EST Hospital Encounter Radiology Film File [address] [place] [address] Discharge Disposition: Home - Self [...] Colon polyps 05/24/2024 Overview: 05/2024. Done at [facility]. Three small. Clostridioides difficile infection 03/23/2024 Chronic diastolic congestive heart failure 11/09 Secondary hyperparathyroidism of renal origin Hypoglycemia 06/29/2023 Last Assessment & Plan: Glucose 103 during visit. Reordered freestyle Larisa-patient had previously. Follows with endocrinology at [facility] Stage 3a chronic kidney disease [...] rinse after steroid. Test performed by Lazarus APPLICATION ARCHITECT MANAGER CPFT Moderate persistent asthma w ithout complication 10/11/2019 08/09/2021 Overview: In Check dial performed to assess inhaler technique: 11/25/19 Name of inhalers Albuterol Pass: Yes at 40L/min and Trelegy Ellipta Pass: Yes at 35L/min. Encourage to take deep breaths, use aero chamber, and rinse after steroid. Test performed by Lazarus APPLICATION ARCHITECT MANAGER CPFT Ulcer of left lower extremit [...] rinse after steroid. Test performed by Lazarus APPLICATION ARCHITECT MANAGER CPFT Groupl B, by GOLD 2017 [...] rinse after steroid. Test performed by Lazarus APPLICATION ARCHITECT MANAGER CPFT Acute. Anemia 10/19/2017 08/09/2021 Malabsorption [...] mRNA, LNP-s, No Pre serve, 2-Dose Series ([employer]) 07/12/2021,05/16/2021,11/18/2020,11/04 COVID-19, LNP-s, No Preserve , Josue-sucrose, Ages 12+ (Pfizer) 05/16/2022 Covid-19, Mrna, Lnp-s, Pf, B ivalent, 30 Mcg, IM, 12 yrs and above ([employer]) 08/06/2022 Pneumococcal Conjugate Vacc, 13 Valent (Prevnar) [...] PM EDT [facility] [address] [address] Sally Bonilla, RANDELL [address] [address] 07/04/2024 10:30 AM EDT Office Visit Sleep Disorders Ctr [facility] [address] [phone] Andria Goldstein CRNP [address] [place] [address] 07/11/2024 2:00 PM EDT Scheduled Telephone Interventional Pain Center, [facility] [address] [address] Darryn, Nurse Phone Call Interventional Pain [facility] [address] [address] 07/27/2024 12:45 PM EDT Immunization/Injec tion Hematology/Oncology Treatment, [place] [address] [place] [phone] Jolanta, Chair 2 Hem Onc Scenery [address] [place] [address] 08/03/2024 12:00 PM EDT Office Visit Family Practice [facility] [address] [address] Petra Marx MD [address] [address] 08/19/2024 10:00 AM EST Office Visit Family Practice [facility] [address] [place] [address] Petra Marx MD [address] [place] [address] 08/30/2024 12:00 PM EST Office Visit Gastroenterology, [facility] [address] [address] Breann Jerome CRNP [address] [place] [address] 09/14/2024 11:00 AM EST Nurse Only Ancillary [address] [place] [address] [place], Nurse [address] [place] [address] 02/02/2025 12:30 PM EDT Imaging Radiology [address] [place] [address] Health Maintenance Due Date Last Done Comments [...] Additional history exists CKD HGB USE SMARTSET 84672 03/17/202503/17, 03/17/2024, 12/25/2023, Additional history exists CKD PHOS USE SMARTSET 16454 03/17/202503/05, 02/18/2024, 05/01/2023, Additional history exists O2 [...] D LEVEL ONCE IN A LIFETIME-USE SMARTSET# [id number] Completed 02/18/2024, 05/01/2023, 12/28/2014, Additional history exists [...] this encounter Medical Devices Implanted Type Area Gelatin Dynamite Packing Operator Device Identifier Shelf Expiration Date Model / Serial / Lot Port Power Mri W/8fr Cath - [id number] Implanted:Qty : 1 on 11/02/2017 by Ignacio Guevara MD at OR [facility] Right: Internal Jugular CR BARD : PERIPHERAL VASCULAR 07/04/2019 [id number] / / [id number] documented as of this encounter Procedures Procedure Name Priority Date/Time Associated Diagnosis Comments RADIOLOGY EXAM - CT (IMAGES ONLY, NO REPORT) Routine 11/29/2023 8:55 PM EST documented in this encounter Results * RADIOLOGY EXAM - CT (IMAGES ONLY, NO REPORT) (11/29/2023 8:55 PM EST) 11/29/2023 8:55 PM EST Narrative Scheduling, Silent - 06/24/2024 12:16 PM EDT This is an imaging study not interpreted or resulted by a [employer] contracted radiologist. Petra Marx MD RAD CT documented in this encounter Advance Directives Healthcare Agents on File Name Relationship Healthcare Agent Relationship Communication Ivonne Michelle Other - (no specific identity) Health Care Agent Care Teams Director Statistical Programming Relationship Specialty Start Date End Date Petra Marx MD [address] [place] [address] PCP - General Internal Medicine 11/09/23 documented as of this encounter
--- OUTSIDE RECORDS SUMMARY | 2024-06-30 06:46 | External Medical Summary | Summary of Care ---
Author Name Unknown Organization [facility] Address [address] [place] [address] Phone [phone] Care Team Providers Care Director Of Rehabilitation Name Role Phone Petra Marx MD Primary Care Provider Encounter Details Date Type Department Care Team (Latest Contact Info) Description 02/07/2024 3:20 PM EDT - 02/07/2024 11:59 PM EDT Hospital Encounter Radiology Film File [address] [place] [address] Discharge Disposition: Home - Self [...] Colon polyps 05/24/2024 Overview: 05/2024. Done at [facility]. Three small. Clostridioides difficile infection 03/23/2024 Chronic diastolic congestive heart failure 11/09 Secondary hyperparathyroidism of renal origin Hypoglycemia 06/29/2023 Last Assessment & Plan: Glucose 103 during visit. Reordered freestyle Larisa-patient had previously. Follows with endocrinology at [facility] Stage 3a chronic kidney disease 04/16/2023 COPD, [...] rinse after steroid. Test performed by Lazarus ORACLE ADF CONSULTANT CPFT Moderate persistent asthma w ithout complication 10/11/2019 08/09/2021 Overview: In Check dial performed to assess inhaler technique: 11/25/19 Name of inhalers Albuterol Pass: Yes at 40L/min and Trelegy Ellipta Pass: Yes at 35L/min. Encourage to take deep breaths, use aero chamber, and rinse after steroid. Test performed by Lazarus ORACLE ADF CONSULTANT CPFT Ulcer of left lower extremit y, [...] rinse after steroid. Test performed by Lazarus ORACLE ADF CONSULTANT CPFT Groupl B, by GOLD 2017 classification [...] rinse after steroid. Test performed by Lazarus ORACLE ADF CONSULTANT CPFT Acute. Anemia 10/19/2017 08/09/2021 Malabsorption 10/19/2017 [...] mRNA, LNP-s, No Pre serve, 2-Dose Series ([employer]) 07/12/2021,05/16/2021,11/18/2020,11/04 COVID-19, LNP-s, No Preserve , Josue-sucrose, [...] No 11/19/2023 Does the household have a [facility] source of income? (Household - for [...] Description 06/30/2024 12:30 PM EDT Home Visit [facility] [address] [address] Sally Bonilla, RANDELL [address] [address] 07/04/2024 10:30 AM EDT Office Visit Sleep Disorders Ctr [facility] [address] [phone] Andria Goldstein CRNP [address] [address] 07/11/2024 2:00 PM EDT Scheduled Telephone Interventional Pain Center, [facility] [address] [address] Darryn, Nurse Phone Call Interventional Pain [facility] [address] [address] 07/27/2024 12:45 PM EDT Immunization/Injec tion Hematology/Oncology Treatment, [place] [address] [place] [phone] Jolanta, Chair 2 Hem Onc Scenery [address] [place] [address] 08/03/2024 12:00 PM EDT Office Visit Family Practice [facility] [address] [address] Petra Marx MD [address] [address] 08/19/2024 10:00 AM EST Office Visit Family Practice [facility] [address] [address] Petra Marx MD [address] [place] [address] 08/30/2024 12:00 PM EST Office Visit Gastroenterology, [facility] [address] [address] Breann Jerome CRNP [address] [address] 09/14/2024 11:00 AM EST Nurse Only Ancillary [address] [place] [address] Yanney, Nurse Annual Wellness [address] [place] [address] [place] [address] 02/02/2025 12:30 PM EDT Imaging Radiology [address] [place] [address] Health Maintenance Due Date Last Done Comments [...] Additional history exists CKD HGB USE SMARTSET 25041 03/17/202503/17, 03/17/2024, 12/25/2023, Additional history exists CKD PHOS USE SMARTSET 84195 03/17/202503/05, 02/18/2024, 05/01/2023, Additional history exists O2 [...] D LEVEL ONCE IN A LIFETIME-USE SMARTSET# [id number] Completed 02/18/2024, 05/01/2023, 12/28/2014, Additional history exists [...] this encounter Medical Devices Implanted Type Area Criminal Justice Department Chair Device Identifier Shelf Expiration Date Model / Serial / Lot Port Power Mri W/8fr Cath - [id number] Implanted:Qty : 1 on 11/02/2017 by Ignacio Guevara MD at OR [facility] Right: Internal Jugular CR BARD : PERIPHERAL VASCULAR 07/04/2019 [id number] / / [id number] documented as of this encounter Procedures Procedure Name Priority Date/Time Associated Diagnosis Comments RADIOLOGY EXAM - CT (IMAGES ONLY, NO REPORT) Routine 02/07/2024 3:20 PM EDT documented in this encounter Results * RADIOLOGY EXAM - CT (IMAGES ONLY, NO REPORT) (02/07/2024 3:20 PM EDT) 02/07/2024 3:19 PM EDT Narrative Scheduling, Silent - 06/24/2024 10:38 AM EDT This is an imaging study not interpreted or resulted by a [facility] contracted radiologist. Petra Marx MD RAD CT documented in this encounter Advance Directives Healthcare Agents on File Name Relationship Healthcare Agent Relationship Communication Ivonne Michelle Other - (no specific identity) Health Care Agent Care Teams Director Of Rehabilitation Relationship Specialty Start Date End Date Petra Marx MD [address] [address] PCP - General Internal Medicine 11/09/23 documented as of this encounter
--- OUTSIDE RECORDS SUMMARY | 2024-06-30 06:46 | External Medical Summary | Summary of Care ---
Author Name Unknown Organization [facility] Address [address] [place] [address] Phone [phone] Care Team Providers Care Physics Instructor Name Role Phone Petra Marx MD Primary Care Provider Encounter Details Date Type Department Care Team (Latest Contact Info) Description 12/15/2023 10:20 AM EDT - 12/15/2023 11:59 PM EDT Hospital Encounter Radiology Film File [address] [place] [address] Discharge Disposition: Home - Self [...] Colon polyps 05/24/2024 Overview: 05/2024. Done at [facility]. Three small. Clostridioides difficile infection 03/23/2024 Chronic diastolic congestive heart failure 11/09 Secondary hyperparathyroidism of renal origin Hypoglycemia 06/29/2023 Last Assessment & Plan: Glucose 103 during visit. Reordered freestyle Larisa-patient had previously. Follows with endocrinology at [facility] Stage 3a chronic kidney disease 04/16/2023 [...] rinse after steroid. Test performed by Lazarus HEALTHCARE ADVISORY SERVICES MANAGER CPFT Moderate persistent asthma w ithout complication 10/11/2019 08/09/2021 Overview: In Check dial performed to assess inhaler technique: 11/25/19 Name of inhalers Albuterol Pass: Yes at 40L/min and Trelegy Ellipta Pass: Yes at 35L/min. Encourage to take deep breaths, use aero chamber, and rinse after steroid. Test performed by Lazarus HEALTHCARE ADVISORY SERVICES MANAGER CPFT Ulcer of left lower extremit [...] rinse after steroid. Test performed by Lazarus HEALTHCARE ADVISORY SERVICES MANAGER CPFT Groupl B, by GOLD 2017 [...] rinse after steroid. Test performed by Lazarus HEALTHCARE ADVISORY SERVICES MANAGER CPFT Acute. Anemia 10/19/2017 08/09/2021 Malabsorption [...] mRNA, LNP-s, No Pre serve, 2-Dose Series ([employer]) 07/12/2021,05/16/2021,11/18/2020,11/04 COVID-19, LNP-s, No Preserve , Josue-sucrose, Ages 12+ (Pfizer) 05/16/2022 Covid-19, Mrna, Lnp-s, Pf, B ivalent, 30 Mcg, IM, 12 yrs and above ([employer]) 08/06/2022 Pneumococcal Conjugate Vacc, 13 Valent (Prevnar) [...] PM EDT [facility] [address] [address] Sally Bonilla, RANDELL [address] [address] 07/04/2024 10:30 AM EDT Office Visit Sleep Disorders Ctr [facility] [address] [phone] Andria Goldstein CRNP [address] [place] [address] 07/11/2024 2:00 PM EDT Scheduled Telephone Interventional Pain Center, [facility] [address] [address] Darryn, Nurse Phone Call Interventional Pain [facility] [address] [address] 07/27/2024 12:45 PM EDT Immunization/Injec tion Hematology/Oncology Treatment, [place] [address] [place] [phone] Jolanta, Chair 2 Hem Onc Scenery [address] [place] [address] 08/03/2024 12:00 PM EDT Office Visit Family Practice [facility] [address] [address] Petra Marx MD [address] [address] 08/19/2024 10:00 AM EST Office Visit Family Practice [facility] [address] [place] [address] Petra Marx MD [address] [place] [address] 08/30/2024 12:00 PM EST Office Visit Gastroenterology, [facility] [address] [address] Breann Jerome CRNP [address] [place] [address] 09/14/2024 11:00 AM EST Nurse Only Ancillary [address] [place] [address] [place], Nurse [address] [place] [address] 02/02/2025 12:30 PM EDT Imaging Radiology [address] [place] [address] Health Maintenance Due Date Last Done Comments [...] Additional history exists CKD HGB USE SMARTSET 78412 03/17/202503/17, 03/17/2024, 12/25/2023, Additional history exists CKD PHOS USE SMARTSET 28143 03/17/202503/05, 02/18/2024, 05/01/2023, Additional history exists O2 [...] D LEVEL ONCE IN A LIFETIME-USE SMARTSET# 59294 Completed 02/18/2024, 05/01/2023, 12/28/2014, Additional history exists [...] this encounter Medical Devices Implanted Type Area Subeditor Device Identifier Shelf Expiration Date Model / Serial / Lot Port Power Mri W/8fr Cath - [id number] Implanted:Qty : 1 on 11/02/2017 by Ignacio Guevara MD at OR [facility] Right: Internal Jugular CR BARD : PERIPHERAL VASCULAR 07/04/2019 [id number] / / [id number] documented as of this encounter Procedures Procedure Name Priority Date/Time Associated Diagnosis Comments RADIOLOGY EXAM - GENERAL RAD (IMAGES ONLY,NO REPORT) Routine 12/15/2023 10:20 AM EDT documented in this encounter Results * RADIOLOGY EXAM - GENERAL RAD (IMAGES ONLY,NO REPORT) (12/15/2023 10:20 AM EDT) 12/15/2023 10:1 8 AM EDT Narrative Scheduling, Silent - 06/24/2024 11:13 AM EDT This is an imaging study not interpreted or resulted by a [employer] or [employer] contracted radiologist. Petra Marx MD RADIOLOGY (RAD GENERAL) documented in this encounter Advance Directives Healthcare Agents on File Name Relationship Healthcare Agent Relationship Communication Ivonne Michelle Other - (no specific identity) Health Care Agent Care Teams Physics Instructor Relationship Specialty Start Date End Date Petra Marx MD [address] [place] [address] PCP - General Internal Medicine 11/09/23 documented as of this encounter
--- OUTSIDE RECORDS SUMMARY | 2024-06-30 06:46 | External Medical Summary | Summary of Care ---
Author Name Unknown Organization [facility] Address [address] [place] [address] Phone [phone] Care Team Providers Care Head Of Strategy Name Role Phone Aaron Marx MD Primary Care Provider Reason for Visit * Reason Onset Date Comments No Show 06/27/2024 [facility] No Show Auto mation Encounter Details Date Type Department Care Team (Late st Contact Info) Description 06/27/2024 Telephone Family Practice [facility] [address] [place] [address] Aaron Marx MD [address] [facility] [place] [address] No Show ([place] No Show Automation) Allergies Active Allergy Reactions Criticality Noted Date [...] BEFORE MEALS. 60 Tablet 05/08/2024 Active Creon 96783-[address] UNIT Oral Capsule Delayed Release Particles (Pancrelipase (Fbo-Ancw-Wfwg)) TAKE FOUR CAPSULES THREE TIMES DAILY 720 [...] Colon polyps 05/24/2024 Overview: 05/2024. Done at [facility]. Three small. Clostridioides difficile infection 03/23/2024 Chronic diastolic congestive heart failure 11/09 Secondary hyperparathyroidism of renal origin Hypoglycemia 06/29/2023 Last Assessment & Plan: Glucose 103 during visit. Reordered freestyle Larisa-patient had previously. Follows with endocrinology at [facility] Stage 3a chronic kidney disease 04/16/2023 COPD, [...] rinse after steroid. Test performed by Lazarus CHUCKING LATHE OPERATOR CPFT Moderate persistent asthma w ithout complication 10/11/2019 08/09/2021 Overview: In Check dial performed to assess inhaler technique: 11/25/19 Name of inhalers Albuterol Pass: Yes at 40L/min and Trelegy Ellipta Pass: Yes at 35L/min. Encourage to take deep breaths, use aero chamber, and rinse after steroid. Test performed by Lazarus CHUCKING LATHE OPERATOR CPFT Ulcer of left lower extremit [...] rinse after steroid. Test performed by Lazarus CHUCKING LATHE OPERATOR CPFT Groupl B, by GOLD 2017 [...] rinse after steroid. Test performed by Lazarus CHUCKING LATHE OPERATOR CPFT Acute. Anemia 10/19/2017 08/09/2021 Malabsorption [...] mRNA, LNP-s, No Pre serve, 2-Dose Series ([employer]) 07/12/2021,05/16/2021,11/18/2020,11/04 COVID-19, LNP-s, No Preserve , Josue-sucrose, Ages 12+ ([employer]) 05/16/2022 Covid-19, Mrna, Lnp-s, Pf, B ivalent, 30 Mcg, IM, 12 yrs and above ([employer]) 08/06/2022 Pneumococcal Conjugate Vacc, 13 Valent (Prevnar) [...] encounter Miscellaneous Notes * Telephone Encounter - Valentine Mccarthy Show - 06/27/2024 7:55 AM EDT Dear Liz Braswell, Looks like you missed an appointment with AARON MARX on 06/22/2024 at 11:40 AM. If you haven't already rescheduled, you have a couple of options: Reschedule in [place]/scheduling Call us at [phone] Can't make a future appointment? Cancel and let someone else have your spot! It's easy to do via [employer] or by calling us. Thanks for trusting [facility] with your care. We hope to see you back in our office soon. Sincerely, AARON MARX documented in this encounter Plan of Treatment Upcoming Encounters Date Type Department Care Team (Late st Contact Info) Description 06/30/2024 12:30 PM EDT [facility] [address] [address] Sally Bonilla, RANDELL [address] [address] 07/04/2024 10:30 AM EDT Office Visit Sleep Disorders Ctr [facility] [address] [phone] Andria Goldstein CRNP [address] [place] [address] 07/11/2024 2:00 PM EDT Scheduled Telephone Interventional Pain Center, [facility] [address] [address] Nurse Darryn Phone Call Interventional Pain [facility] [address] [address] 07/27/2024 12:45 PM EDT Immunization/Injec tion Hematology/Oncology Treatment, [place] [address] [place] [phone] [place], Chair 2 Hem Onc Scenery [address] [place] [address] 08/03/2024 12:00 PM EDT Office Visit Family [facility] [address] [address] Aaron Marx MD [address] [place] [address] 08/19/2024 10:00 AM EST Office Visit Family Practice [facility] [address] [address] Aaron Marx MD [address] [place] [address] 08/30/2024 12:00 PM EST Office Visit Gastroenterology, [facility] [address] [address] Breann Jerome CRNP [address] [place] [address] 09/14/2024 11:00 AM EST Nurse Only Ancillary [address] [place] [address] Parvez, Nurse [address] [place] [address] 02/02/2025 12:30 PM EDT Imaging Radiology [address] [place] [address] Health Maintenance Due Date Last Done Comments [...] Additional history exists CKD HGB USE SMARTSET 62199 03/17/202503/17, 03/17/2024, 12/25/2023, Additional history exists CKD PHOS USE SMARTSET 51798 03/17/202503/05, 02/18/2024, 05/01/2023, Additional history exists O2 [...] D LEVEL ONCE IN A LIFETIME-USE SMARTSET# [id number] Completed 02/18/2024, 05/01/2023, 12/28/2014, Additional history exists [...] this encounter Medical Devices Implanted Type Area Textile Technologist Device Identifier Shelf Expiration Date Model / Serial / Lot Port Power Mri W/8fr Cath - [id number] Implanted:Qty : 1 on 11/02/2017 by Ignacio Guevara MD at OR [facility] Right: Internal Jugular CR BARD : PERIPHERAL VASCULAR 07/04/2019 [id number] / / [id number] documented as of this encounter Advance Directives Healthcare Agents on File Name Relationship Healthcare Agent Relationship Communication Ivonne Martinez Other - (no specific identity) Health Care Agent Care Teams Head Of Strategy Relationship Specialty Start Date End Date Aaron Marx MD [address] [place] [address] [place] [address] PCP - General Internal Medicine 11/09/23 documented as of this encounter
--- OUTSIDE RECORDS SUMMARY | 2024-06-30 06:46 | External Medical Summary | Summary of Care ---
Author Name Unknown Organization [facility] Address [address] [place] [address] Phone [phone] Care Team Providers Care Color Finisher Name Role Phone Petra Marx MD Primary Care Provider Encounter Details Date Type Department Care Team (Latest Contact Info) Description 12/17/2023 3:50 PM EDT - 12/17/2023 11:59 PM EDT Hospital Encounter Radiology Film File [address] [place] [address] Discharge Disposition: Home - Self [...] Colon polyps 05/24/2024 Overview: 05/2024. Done at [facility]. Three small. Clostridioides difficile infection 03/23/2024 Chronic diastolic congestive heart failure 11/09 Secondary hyperparathyroidism of renal origin Hypoglycemia 06/29/2023 Last Assessment & Plan: Glucose 103 during visit. Reordered freestyle Larisa-patient had previously. Follows with endocrinology at [facility] Stage 3a chronic kidney disease 04/16/2023 [...] rinse after steroid. Test performed by Lazarus SPLICING MACHINE OPERATOR AUTOMATIC CPFT Moderate persistent asthma w ithout complication 10/11/2019 08/09/2021 Overview: In Check dial performed to assess inhaler technique: 11/25/19 Name of inhalers Albuterol Pass: Yes at 40L/min and Trelegy Ellipta Pass: Yes at 35L/min. Encourage to take deep breaths, use aero chamber, and rinse after steroid. Test performed by Lazarus SPLICING MACHINE OPERATOR AUTOMATIC CPFT Ulcer of left lower extremit y, [...] rinse after steroid. Test performed by Lazarus SPLICING MACHINE OPERATOR AUTOMATIC CPFT Groupl B, by GOLD 2017 classification [...] rinse after steroid. Test performed by Lazarus SPLICING MACHINE OPERATOR AUTOMATIC CPFT Acute. Anemia 10/19/2017 08/09/2021 Malabsorption 10/19/2017 [...] mRNA, LNP-s, No Pre serve, 2-Dose Series (LABOMAR) 07/12/2021,05/16/2021,11/18/2020,11/04 COVID-19, LNP-s, No Preserve , Josue-sucrose, Ages 12+ (Pfizer) 05/16/2022 Covid-19, Mrna, Lnp-s, Pf, B ivalent, 30 Mcg, IM, 12 yrs and above (LABOMAR) 08/06/2022 Pneumococcal Conjugate Vacc, 13 Valent (Prevnar) [...] PM EDT [facility], [facility] [address] [address] Sally Bonilla, RANDELL [address] [address] 07/04/2024 10:30 AM EDT Office Visit Sleep Disorders Ctr [facility] [address] [phone] Andria Goldstein CRNP [address] [place] [address] 07/11/2024 2:00 PM EDT Scheduled Telephone Interventional Pain Center, [facility] [address] [address] Darryn, Nurse Phone Call Interventional Pain [facility] [address] [address] 07/27/2024 12:45 PM EDT Immunization/Injec tion Hematology/Oncology Treatment, [place] [address] [place] [phone] Jolanta, Chair 2 Hem Onc Scenery [address] [place] [address] 08/03/2024 12:00 PM EDT Office Visit Family Practice [facility] [address] [address] Petra Marx MD [address] [address] 08/19/2024 10:00 AM EST Office Visit Family Practice [facility] [address] [place] [address] Petra Marx MD [address] [place] [address] 08/30/2024 12:00 PM EST Office Visit Gastroenterology, [facility] [address] [address] Breann Jerome CRNP [address] [place] [address] 09/14/2024 11:00 AM EST Nurse Only Ancillary [address] [place] [address] [place], Nurse [address] [place] [address] 02/02/2025 12:30 PM EDT Imaging Radiology [address] [place] [address] Health Maintenance Due Date Last Done Comments [...] Additional history exists CKD HGB USE SMARTSET 72581 03/17/202503/17, 03/17/2024, 12/25/2023, Additional history exists CKD PHOS USE SMARTSET 45820 03/17/202503/05, 02/18/2024, 05/01/2023, Additional history exists O2 [...] D LEVEL ONCE IN A LIFETIME-USE SMARTSET# 96712 Completed 02/18/2024, 05/01/2023, 12/28/2014, Additional history exists [...] this encounter Medical Devices Implanted Type Area Casing Splitter Device Identifier Shelf Expiration Date Model / Serial / Lot Port Power Mri W/8fr Cath - [id number] Implanted:Qty : 1 on 11/02/2017 by Ignacio Guevara MD at OR [facility] Right: Internal Jugular CR BARD : PERIPHERAL VASCULAR 07/04/2019 [id number] / / [id number] documented as of this encounter Procedures Procedure Name Priority Date/Time Associated Diagnosis Comments RADIOLOGY EXAM - MRI (IMAGES ONLY, NO REPORT) Routine 12/17/2023 3:50 PM EDT documented in this encounter Results * RADIOLOGY EXAM - MRI (IMAGES ONLY, NO REPORT) (12/17/2023 3:50 PM EDT) 12/17/2023 3:48 PM EDT Narrative Scheduling, Silent - 06/24/2024 10:31 AM EDT This is an imaging study not interpreted or resulted by a [employer] or [employer] contracted radiologist. Petra Marx MD RAD MRI-MRA documented in this encounter Advance Directives Healthcare Agents on File Name Relationship Healthcare Agent Relationship Communication Ivonne Michelle Other - (no specific identity) Health Care Agent Care Teams Color Finisher Relationship Specialty Start Date End Date Petra Marx MD [address] [place] [address] PCP - General Internal Medicine 11/09/23 documented as of this encounter
--- OUTSIDE RECORDS SUMMARY | 2024-06-30 06:46 | External Medical Summary | Summary of Care ---
Author Name Unknown Organization [facility] Address [address] [place] [address] Phone [phone] Care Team Providers Care Channel Manager Name Role Phone Petra Marx MD Primary Care Provider Encounter Details Date Type Department Care Team (Latest Contact Info) Description 12/08/2023 8:25 PM EST - 12/08/2023 11:59 PM EST Hospital Encounter Radiology Film File [address] [place] [address] Discharge Disposition: Home - Self [...] Colon polyps 05/24/2024 Overview: 05/2024. Done at [facility]. Three small. Clostridioides difficile infection 03/23/2024 Chronic diastolic congestive heart failure 11/09 Secondary hyperparathyroidism of renal origin Hypoglycemia 06/29/2023 Last Assessment & Plan: Glucose 103 during visit. Reordered freestyle Larisa-patient had previously. Follows with endocrinology at [facility] Stage 3a chronic kidney disease 04/16/2023 [...] rinse after steroid. Test performed by Lazarus COAT PADDER CPFT Moderate persistent asthma w ithout complication 10/11/2019 08/09/2021 Overview: In Check dial performed to assess inhaler technique: 11/25/19 Name of inhalers Albuterol Pass: Yes at 40L/min and Trelegy Ellipta Pass: Yes at 35L/min. Encourage to take deep breaths, use aero chamber, and rinse after steroid. Test performed by Lazarus COAT PADDER CPFT Ulcer of left lower extremit y, [...] rinse after steroid. Test performed by Lazarus COAT PADDER CPFT Groupl B, by GOLD 2017 classification [...] rinse after steroid. Test performed by Lazarus COAT PADDER CPFT Acute. Anemia 10/19/2017 08/09/2021 Malabsorption 10/19/2017 [...] mRNA, LNP-s, No Pre serve, 2-Dose Series ([employer]) 07/12/2021,05/16/2021,11/18/2020,11/04 COVID-19, LNP-s, No Preserve , Josue-sucrose, Ages 12+ (Pfizer) 05/16/2022 Covid-19, Mrna, Lnp-s, Pf, B ivalent, 30 Mcg, IM, 12 yrs and above ([employer]) 08/06/2022 Pneumococcal Conjugate Vacc, 13 Valent (Prevnar) [...] PM EDT [facility] [address] [address] aSlly Bonilla, RANDELL [address] [address] 07/04/2024 10:30 AM EDT Office Visit Sleep Disorders Ctr [facility] [address] [phone] Andria Goldstein CRNP [address] [place] [address] 07/11/2024 2:00 PM EDT Scheduled Telephone Interventional Pain Center, [facility] [address] [address] Darryn, Nurse Phone Call Interventional Pain [facility] [address] [address] 07/27/2024 12:45 PM EDT Immunization/Injec tion Hematology/Oncology Treatment, [place] [address] [place] [address] Jolanta, Chair 2 Hem Onc Scenery [address] [place] [address] 08/03/2024 12:00 PM EDT Office Visit Family Practice [facility] [address] [address] Petra Marx MD [address] [address] 08/19/2024 10:00 AM EST Office Visit Family Practice [facility] [address] [place] [address] Petra Marx MD [address] [place] [address] 08/30/2024 12:00 PM EST Office Visit Gastroenterology, [facility] [address] [address] Breann Jerome CRNP [address] [place] [address] 09/14/2024 11:00 AM EST Nurse Only Ancillary [address] [place] [address] [place], Nurse [address] [place] [address] 02/02/2025 12:30 PM EDT Imaging Radiology [address] [place] [address] Health Maintenance Due Date Last Done Comments [...] Additional history exists CKD HGB USE SMARTSET 87998 03/17/202503/17, 03/17/2024, 12/25/2023, Additional history exists CKD PHOS USE SMARTSET 38301 03/17/202503/05, 02/18/2024, 05/01/2023, Additional history exists O2 [...] D LEVEL ONCE IN A LIFETIME-USE SMARTSET# 53684 Completed 02/18/2024, 05/01/2023, 12/28/2014, Additional history exists [...] this encounter Medical Devices Implanted Type Area Dry Can Tender Device Identifier Shelf Expiration Date Model / Serial / Lot Port Power Mri W/8fr Cath - [id number] Implanted:Qty : 1 on 11/02/2017 by Ignacio Guevara MD at OR [facility] Right: Internal Jugular CR BARD : PERIPHERAL VASCULAR 07/04/2019 [id number] / / [id number] documented as of this encounter Procedures Procedure Name Priority Date/Time Associated Diagnosis Comments RADIOLOGY EXAM - US (IMAGES ONLY, NO REPORT) Routine 12/08/2023 8:25 PM EST documented in this encounter Results * RADIOLOGY EXAM - US (IMAGES ONLY, NO REPORT) (12/08/2023 8:25 PM EST) 12/08/2023 8:23 PM EST Narrative Scheduling, Silent - 06/24/2024 12:11 PM EDT This is an imaging study not interpreted or resulted by a [employer] or [employer] contracted radiologist. Petra Marx MD RAD ULTRASOUND documented in this encounter Advance Directives Healthcare Agents on File Name Relationship Healthcare Agent Relationship Communication Ivonne Michelle Other - (no specific identity) Health Care Agent Care Teams Channel Manager Relationship Specialty Start Date End Date Petra Marx MD [address] [place] [address] PCP - General Internal Medicine 11/09/23 documented as of this encounter
--- OUTSIDE RECORDS SUMMARY | 2024-06-30 06:46 | External Medical Summary | Summary of Care ---
Author Name Unknown Organization [facility] Address [address] [place] [address] Phone [phone] Care Team Providers Care Motor Equipment Commanding Officer Name Role Phone Petra Marx MD Primary Care Provider Encounter Details Date Type Department Care Team (Latest Contact Info) Description 12/07/2023 9:50 AM EST - 12/07/2023 11:59 PM EST Hospital Encounter Radiology Film File [address] [place] [address] Discharge Disposition: Home - Self [...] polyps 05/24/2024 Overview: 05/2024. Done at [facility]. Three small. Clostridioides difficile infection 03/23/2024 Chronic diastolic congestive heart failure 11/09 Secondary hyperparathyroidism of renal origin Hypoglycemia 06/29/2023 Last Assessment & Plan: Glucose 103 during visit. Reordered freestyle Larisa-patient had previously. Follows with endocrinology at [facility] Stage 3a chronic kidney disease 04/16/2023 COPD, [...] rinse after steroid. Test performed by Lazarus NON DESTRUCTIVE TESTING SCIENTIST CPFT Moderate persistent asthma w ithout complication 10/11/2019 08/09/2021 Overview: In Check dial performed to assess inhaler technique: 11/25/19 Name of inhalers Albuterol Pass: Yes at 40L/min and Trelegy Ellipta Pass: Yes at 35L/min. Encourage to take deep breaths, use aero chamber, and rinse after steroid. Test performed by Lazarus NON DESTRUCTIVE TESTING SCIENTIST CPFT Ulcer of left lower extremit y, [...] rinse after steroid. Test performed by Lazarus NON DESTRUCTIVE TESTING SCIENTIST CPFT Groupl B, by GOLD 2017 classification [...] rinse after steroid. Test performed by Lazarus NON DESTRUCTIVE TESTING SCIENTIST CPFT Acute. Anemia 10/19/2017 08/09/2021 Malabsorption 10/19/2017 [...] mRNA, LNP-s, No Pre serve, 2-Dose Series ([employer]) 07/12/2021,05/16/2021,11/18/2020,11/04 COVID-19, LNP-s, No Preserve , Josue-sucrose, Ages 12+ (Pfizer) 05/16/2022 Covid-19, Mrna, Lnp-s, Pf, B ivalent, 30 Mcg, IM, 12 yrs and above ([employer]) 08/06/2022 Pneumococcal Conjugate Vacc, 13 Valent (Prevnar) [...] PM EDT [facility], [facility] [address] [address] Sally Bonilla, RANDE[place] [address] [address] [address] 07/04/2024 10:30 AM EDT Office Visit Sleep Disorders Ctr [facility] [address] [phone] Andria Goldstein CRNP [address] [place] [address] 07/11/2024 2:00 PM EDT Scheduled Telephone Interventional Pain Center, [facility] [address] [address] Darryn, Nurse Phone Call Interventional Pain [facility] [address] [address] 07/27/2024 12:45 PM EDT Immunization/Injec tion Hematology/Oncology Treatment, [place] [address] [place] [address] Jolanta, Chair 2 Hem Onc Scenery [address] [place] [address] 08/03/2024 12:00 PM EDT Office Visit Family Practice [facility] [address] [address] Petra Marx MD [address] [place] [address] 08/19/2024 10:00 AM EST Office Visit Family Practice [facility] [address] [place] [address] Petra Marx MD [address] [place] [address] 08/30/2024 12:00 PM EST Office Visit Gastroenterology, [facility] [address] [address] Breann Jerome CRNP [address] [place] [address] 09/14/2024 11:00 AM EST Nurse Only Ancillary [address] [place] [address] [place], Nurse [address] [place] [address] 02/02/2025 12:30 PM EDT Imaging Radiology [address] [place] [address] Health Maintenance Due Date Last Done Comments [...] Additional history exists CKD HGB USE SMARTSET 33612 03/17/202503/17, 03/17/2024, 12/25/2023, Additional history exists CKD PHOS USE SMARTSET 41006 03/17/202503/05, 02/18/2024, 05/01/2023, Additional history exists O2 [...] D LEVEL ONCE IN A LIFETIME-USE SMARTSET# 70547 Completed 02/18/2024, 05/01/2023, 12/28/2014, Additional history exists [...] this encounter Medical Devices Implanted Type Area Garment Sewer Hand Device Identifier Shelf Expiration Date Model / Serial / Lot Port Power Mri W/8fr Cath - [id number] Implanted:Qty : 1 on 11/02/2017 by Ignacio Guevara MD at OR [facility] Right: Internal Jugular CR BARD : PERIPHERAL VASCULAR 07/04/2019 [id number] / / [id number] documented as of this encounter Procedures Procedure Name Priority Date/Time Associated Diagnosis Comments RADIOLOGY EXAM - GENERAL RAD (IMAGES ONLY,NO REPORT) Routine 12/07/2023 9:50 AM EST documented in this encounter Results * RADIOLOGY EXAM - GENERAL RAD (IMAGES ONLY,NO REPORT) (12/07/2023 9:50 AM EST) 12/07/2023 9:48 AM EST Narrative Scheduling, Silent - 06/24/2024 10:47 AM EDT This is an imaging study not interpreted or resulted by a [employer] or [employer] contracted radiologist. Petra Marx MD RADIOLOGY (RAD GENERAL) documented in this encounter Advance Directives Healthcare Agents on File Name Relationship Healthcare Agent Relationship Communication Ivonne Michelle Other - (no specific identity) Health Care Agent Care Teams Motor Equipment Commanding Officer Relationship Specialty Start Date End Date Petra Marx MD [address] [place] [address] PCP - General Internal Medicine 11/09/23 documented as of this encounter
--- OUTSIDE RECORDS SUMMARY | 2024-06-30 06:47 | External Medical Summary | Summary of Care ---
Author Name Unknown Organization [facility] Address [address] [place] [address] Phone [phone] Care Team Providers Care Ticket Printer Name Role Phone Petra Marx MD Primary Care Provider Encounter Details Date Type Department Care Team (Latest Contact Info) Description 02/08/2024 11:00 AM EDT - 02/08/2024 11:59 PM EDT Hospital Encounter Radiology Film File [address] [place] [address] Discharge Disposition: Home - Self [...] Colon polyps 05/24/2024 Overview: 05/2024. Done at [facility]. Three small. Clostridioides difficile infection 03/23/2024 Chronic diastolic congestive heart failure 11/09 Secondary hyperparathyroidism of renal origin Hypoglycemia 06/29/2023 Last Assessment & Plan: Glucose 103 during visit. Reordered freestyle Larisa-patient had previously. Follows with endocrinology at [facility] Stage 3a chronic kidney disease [...] rinse after steroid. Test performed by Lazarus PLASTER MIXER CPFT Moderate persistent asthma w ithout complication 10/11/2019 08/09/2021 Overview: In Check dial performed to assess inhaler technique: 11/25/19 Name of inhalers Albuterol Pass: Yes at 40L/min and Trelegy Ellipta Pass: Yes at 35L/min. Encourage to take deep breaths, use aero chamber, and rinse after steroid. Test performed by Lazarus PLASTER MIXER CPFT Ulcer of left lower extremit y, [...] rinse after steroid. Test performed by Lazarus PLASTER MIXER CPFT Groupl B, by GOLD 2017 classification [...] rinse after steroid. Test performed by Lazarus PLASTER MIXER CPFT Acute. Anemia 10/19/2017 08/09/2021 Malabsorption 10/19/2017 [...] mRNA, LNP-s, No Pre serve, 2-Dose Series ([employer]) 07/12/2021,05/16/2021,11/18/2020,11/04 COVID-19, LNP-s, No Preserve , [...] No 11/19/2023 Does the household have a [facility] source of income? (Household - for [...] Description 06/30/2024 12:30 PM EDT Home Visit [facility] [address] [address] Sally Bonilla, RANDELL [address] [address] 07/04/2024 10:30 AM EDT Office Visit Sleep Disorders Ctr [facility] [address] [phone] Andria Goldstein CRNP [address] [address] 07/11/2024 2:00 PM EDT Scheduled Telephone Interventional Pain Center, [facility] [address] [address] Darryn, Nurse Phone Call Interventional Pain [facility] [address] [address] 07/27/2024 12:45 PM EDT Immunization/Injec tion Hematology/Oncology Treatment, [place] [address] [place] [phone] Jolanta, Chair 2 Hem Onc Scenery [address] [place] [address] 08/03/2024 12:00 PM EDT Office Visit Family Practice [facility] [address] [address] Petra Marx MD [address] [place] [address] 08/19/2024 10:00 AM EST Office Visit Family Practice [facility] [address] [address] Petra Marx MD [address] [place] [address] 08/30/2024 12:00 PM EST Office Visit Gastroenterology, [facility] [address] [address] Breann Jerome CRNP [address] [address] 09/14/2024 11:00 AM EST Nurse Only Ancillary [address] [place] [address] Yanney, Nurse Annual Wellness [address] [place] [address] [place] [address] 02/02/2025 12:30 PM EDT Imaging Radiology [address] [place] [address] Health Maintenance Due Date Last Done Comments [...] Additional history exists CKD HGB USE SMARTSET 96218 03/17/202503/17, 03/17/2024, 12/25/2023, Additional history exists CKD PHOS USE SMARTSET 45124 03/17/202503/05, 02/18/2024, 05/01/2023, Additional history exists O2 [...] D LEVEL ONCE IN A LIFETIME-USE SMARTSET# 62367 Completed 02/18/2024, 05/01/2023, 12/28/2014, Additional history exists [...] this encounter Medical Devices Implanted Type Area Doll Wig Hackler Device Identifier Shelf Expiration Date Model / Serial / Lot Port Power Mri W/8fr Cath - [id number] Implanted:Qty : 1 on 11/02/2017 by Ignacio Guevara MD at OR [facility] Right: Internal Jugular CR BARD : PERIPHERAL VASCULAR 07/04/2019 [id number] / / [id number] documented as of this encounter Procedures Procedure Name Priority Date/Time Associated Diagnosis Comments RADIOLOGY EXAM - GENERAL RAD (IMAGES ONLY,NO REPORT) Routine 02/08/2024 11:00 AM EDT documented in this encounter Results * RADIOLOGY EXAM - GENERAL RAD (IMAGES ONLY,NO REPORT) (02/08/2024 11:00 AM EDT) 02/08/2024 10:5 8 AM EDT Narrative Scheduling, Silent - 06/24/2024 11:11 AM EDT This is an imaging study not interpreted or resulted by a [facility] or [facility] contracted radiologist. Petra Marx MD RADIOLOGY (RAD GENERAL) documented in this encounter Advance Directives Healthcare Agents on File Name Relationship Healthcare Agent Relationship Communication Ivonne Michelle Other - (no specific identity) Health Care Agent Care Teams Ticket Printer Relationship Specialty Start Date End Date Petra Marx MD [address] [place] [address] PCP - General Internal Medicine 11/09/23 documented as of this encounter
--- OUTSIDE RECORDS SUMMARY | 2024-06-30 06:47 | External Medical Summary | Summary of Care ---
Author Name Unknown Organization [facility] Address [address] [place] [address] Phone [phone] Care Team Providers Care Commercial Singer Name Role Phone Petra Marx MD Primary Care Provider Encounter Details Date Type Department Care Team (Latest Contact Info) Description 02/04/2024 6:40 PM EDT - 02/04/2024 6:44 PM EDT Hospital Encounter Radiology Film File [address] [place] [address] Discharge Disposition: Home - Self [...] polyps 05/24/2024 Overview: 05/2024. Done at [facility]. Three small. Clostridioides difficile infection 03/23/2024 Chronic diastolic congestive heart failure 11/09 Secondary hyperparathyroidism of renal origin Hypoglycemia 06/29/2023 Last Assessment & Plan: Glucose 103 during visit. Reordered freestyle Larisa-patient had previously. Follows with endocrinology at [facility] Stage 3a chronic kidney disease [...] rinse after steroid. Test performed by Lazarus SHOE SHINER CPFT Moderate persistent asthma w ithout complication 10/11/2019 08/09/2021 Overview: In Check dial performed to assess inhaler technique: 11/25/19 Name of inhalers Albuterol Pass: Yes at 40L/min and Trelegy Ellipta Pass: Yes at 35L/min. Encourage to take deep breaths, use aero chamber, and rinse after steroid. Test performed by Lazarus SHOE SHINER CPFT Ulcer of left lower extremit y, [...] rinse after steroid. Test performed by Lazarus SHOE SHINER CPFT Groupl B, by GOLD 2017 classification [...] rinse after steroid. Test performed by Lazarus SHOE SHINER CPFT Acute. Anemia 10/19/2017 08/09/2021 Malabsorption 10/19/2017 [...] mRNA, LNP-s, No Pre serve, 2-Dose Series ([place]) 07/12/2021,05/16/2021,11/18/2020,11/04 COVID-19, LNP-s, No Preserve , Josue-sucrose, [...] No 11/19/2023 Does the household have a [facility] source of income? (Household - for [...] Description 06/30/2024 12:30 PM EDT Home Visit [facility] [address] [address] Sally Bonilla, RANDELL [address] [address] 07/04/2024 10:30 AM EDT Office Visit Sleep Disorders Ctr [facility] [address] [phone] Andria Goldstein CRNP [address] [address] 07/11/2024 2:00 PM EDT Scheduled Telephone Interventional Pain Center, [facility] [address] [address] Darryn, Nurse Phone Call Interventional Pain [facility] [address] [address] 07/27/2024 12:45 PM EDT Immunization/Injec tion Hematology/Oncology Treatment, [place] [address] [place] [phone] Jolanta, Chair 2 Hem Onc Scenery [address] [place] [address] 08/03/2024 12:00 PM EDT Office Visit Family Practice [facility] [address] [address] Petra Marx MD [address] [address] 08/19/2024 10:00 AM EST Office Visit Family Practice [facility] [address] [address] Petra Marx MD [address] [place] [address] 08/30/2024 12:00 PM EST Office Visit Gastroenterology, [facility] [address] [address] Breann Jerome CRNP [address] [address] 09/14/2024 11:00 AM EST Nurse Only Ancillary [address] [place] [address] Yanney, Nurse Annual Wellness [address] [place] [address] [place] [address] 02/02/2025 12:30 PM EDT Imaging Radiology [address] [place] [address] Health Maintenance Due Date Last Done Comments [...] Additional history exists CKD HGB USE SMARTSET 81000 03/17/202503/17, 03/17/2024, 12/25/2023, Additional history exists CKD PHOS USE SMARTSET 91374 03/17/202503/05, 02/18/2024, 05/01/2023, Additional history exists O2 [...] D LEVEL ONCE IN A LIFETIME-USE SMARTSET# [id number] Completed 02/18/2024, 05/01/2023, 12/28/2014, Additional history exists [...] this encounter Medical Devices Implanted Type Area Automatic Presser Device Identifier Shelf Expiration Date Model / Serial / Lot Port Power Mri W/8fr Cath - [id number] Implanted:Qty : 1 on 11/02/2017 by Ignacio Guevara MD at OR [facility] Right: Internal Jugular CR BARD : PERIPHERAL VASCULAR 07/04/2019 [id number] / / [id number] documented as of this encounter Procedures Procedure Name Priority Date/Time Associated Diagnosis Comments RADIOLOGY EXAM - CT (IMAGES ONLY, NO REPORT) Routine 02/04/2024 6:40 PM EDT documented in this encounter Results * RADIOLOGY EXAM - CT (IMAGES ONLY, NO REPORT) (02/04/2024 6:40 PM EDT) 02/04/2024 6:36 PM EDT Narrative Scheduling, Silent - 06/24/2024 10:35 AM EDT This is an imaging study not interpreted or resulted by a [facility] or [employer] [facility] contracted radiologist. Petra Marx MD RAD CT documented in this encounter Advance Directives Healthcare Agents on File Name Relationship Healthcare Agent Relationship Communication Ivonne Michelle Other - (no specific identity) Health Care Agent Care Teams Commercial Singer Relationship Specialty Start Date End Date Petra Marx MD [address] [address] PCP - General Internal Medicine 11/09/23 documented as of this encounter
--- OUTSIDE RECORDS SUMMARY | 2024-06-30 06:47 | External Medical Summary | Summary of Care ---
Author Name Unknown Organization [facility] Address [address] [place] [address] Phone [phone] Care Team Providers Care Application Software Engineer Name Role Phone Petra Marx MD Primary Care Provider Encounter Details Date Type Department Care Team (Latest Contact Info) Description 12/02/2023 2:10 AM EST - 12/02/2023 11:59 PM [facility] Hospital Encounter Radiology Film File [address] [place] [address] Discharge Disposition: Home - Self [...] polyps 05/24/2024 Overview: 05/2024. Done at [facility]. Three small. Clostridioides difficile infection 03/23/2024 Chronic diastolic congestive heart failure 11/09 Secondary hyperparathyroidism of renal origin Hypoglycemia 06/29/2023 Last Assessment & Plan: Glucose 103 during visit. Reordered freestyle Larisa-patient had previously. Follows with endocrinology at [facility] Stage 3a chronic kidney disease 04/16/2023 [...] rinse after steroid. Test performed by Lazarus TESTER SOUND CPFT Moderate persistent asthma w ithout complication 10/11/2019 08/09/2021 Overview: In Check dial performed to assess inhaler technique: 11/25/19 Name of inhalers Albuterol Pass: Yes at 40L/min and Trelegy Ellipta Pass: Yes at 35L/min. Encourage to take deep breaths, use aero chamber, and rinse after steroid. Test performed by Lazarus TESTER SOUND CPFT Ulcer of left lower extremit y, [...] rinse after steroid. Test performed by Lazarus TESTER SOUND CPFT Groupl B, by GOLD 2017 classification [...] rinse after steroid. Test performed by Lazarus TESTER SOUND CPFT Acute. Anemia 10/19/2017 08/09/2021 Malabsorption 10/19/2017 [...] mRNA, LNP-s, No Pre serve, 2-Dose Series ([employer]) 07/12/2021,05/16/2021,11/18/2020,11/04 COVID-19, LNP-s, No Preserve , Josue-sucrose, Ages 12+ (Pfizer) 05/16/2022 Covid-19, Mrna, Lnp-s, Pf, B ivalent, 30 Mcg, IM, 12 yrs and above ([employer]) 08/06/2022 Pneumococcal Conjugate Vacc, 13 Valent (Prevnar) [...] PM EDT [facility] [address] [address] Sally Bonilla, RANDELL [address] [address] 07/04/2024 10:30 AM EDT Office Visit Sleep Disorders Ctr [facility] [address] [phone] Andria Goldstein CRNP [address] [place] [address] 07/11/2024 2:00 PM EDT Scheduled Telephone Interventional Pain Center, [facility] [address] [address] Darryn, Nurse Phone Call Interventional Pain [facility] [address] [address] 07/27/2024 12:45 PM EDT Immunization/Injec tion Hematology/Oncology Treatment, [place] [address] [place] [phone] Jolanta, Chair 2 Hem Onc Scenery [address] [place] [address] 08/03/2024 12:00 PM EDT Office Visit Family Practice [facility] [address] [address] Petra Marx MD [address] [address] 08/19/2024 10:00 AM EST Office Visit Family Practice [facility] [address] [place] [address] Petra Marx MD [address] [place] [address] 08/30/2024 12:00 PM EST Office Visit Gastroenterology, [facility] [address] [address] Breann Jerome CRNP [address] [place] [address] 09/14/2024 11:00 AM EST Nurse Only Ancillary [address] [place] [address] [place], Nurse [address] [place] [address] 02/02/2025 12:30 PM EDT Imaging Radiology [address] [place] [address] Health Maintenance Due Date Last Done Comments [...] Additional history exists CKD HGB USE SMARTSET 19935 03/17/202503/17, 03/17/2024, 12/25/2023, Additional history exists CKD PHOS USE SMARTSET 29992 03/17/202503/05, 02/18/2024, 05/01/2023, Additional history exists O2 [...] D LEVEL ONCE IN A LIFETIME-USE SMARTSET# 60545 Completed 02/18/2024, 05/01/2023, 12/28/2014, Additional history exists [...] this encounter Medical Devices Implanted Type Area Cloth Dye Range Operator Device Identifier Shelf Expiration Date Model / Serial / Lot Port Power Mri W/8fr Cath - [id number] Implanted:Qty : 1 on 11/02/2017 by Ignacio Guevara MD at OR [facility] Right: Internal Jugular CR BARD : PERIPHERAL VASCULAR 07/04/2019 [id number] / / [id number] documented as of this encounter Procedures Procedure Name Priority Date/Time Associated Diagnosis Comments RADIOLOGY EXAM - CT (IMAGES ONLY, NO REPORT) Routine 12/02/2023 2:10 AM EST documented in this encounter Results * RADIOLOGY EXAM - CT (IMAGES ONLY, NO REPORT) (12/02/2023 2:10 AM EST) 12/02/2023 2:06 AM EST Narrative Scheduling, Silent - 06/24/2024 11:19 AM EDT This is an imaging study not interpreted or resulted by a [employer] or [employer] contracted radiologist. Petra Marx MD RAD CT documented in this encounter Advance Directives Healthcare Agents on File Name Relationship Healthcare Agent Relationship Communication Ivonne Michelle Other - (no specific identity) Health Care Agent Care Teams Application Software Engineer Relationship Specialty Start Date End Date Petra Marx MD [address] [place] [address] PCP - General Internal Medicine 11/09/23 documented as of this encounter
--- OUTSIDE RECORDS SUMMARY | 2024-06-30 06:47 | External Medical Summary | Summary of Care ---
Author Name Unknown Organization [facility] Address [address] [place] [address] Phone [phone] Care Team Providers Care Policy Adviser Name Role Phone Petra Marx MD Primary Care Provider Encounter Details Date Type Department Care Team (Latest Contact Info) Description 11/29/2023 8:35 PM EST - 11/29/2023 8:54 PM EST Hospital Encounter Radiology Film File [address] [place] [address] Discharge Disposition: Home - Self [...] Colon polyps 05/24/2024 Overview: 05/2024. Done at [facility]. Three small. Clostridioides difficile infection 03/23/2024 Chronic diastolic congestive heart failure 11/09 Secondary hyperparathyroidism of renal origin Hypoglycemia 06/29/2023 Last Assessment & Plan: Glucose 103 during visit. Reordered freestyle Larisa-patient had previously. Follows with endocrinology at [facility] Stage 3a chronic kidney [...] rinse after steroid. Test performed by Lazarus CAPTAIN'S ASSISTANT CPFT Moderate persistent asthma w ithout complication 10/11/2019 08/09/2021 Overview: In Check dial performed to assess inhaler technique: 11/25/19 Name of inhalers Albuterol Pass: Yes at 40L/min and Trelegy Ellipta Pass: Yes at 35L/min. Encourage to take deep breaths, use aero chamber, and rinse after steroid. Test performed by Lazarus CAPTAIN'S ASSISTANT CPFT Ulcer of left lower extremit y, [...] rinse after steroid. Test performed by Lazarus CAPTAIN'S ASSISTANT CPFT Groupl B, by GOLD 2017 classification [...] rinse after steroid. Test performed by Lazarus CAPTAIN'S ASSISTANT CPFT Acute. Anemia 10/19/2017 08/09/2021 Malabsorption 10/19/2017 [...] mRNA, LNP-s, No Pre serve, 2-Dose Series ([employer]) 07/12/2021,05/16/2021,11/18/2020,11/04 COVID-19, LNP-s, No Preserve , Josue-sucrose, Ages 12+ (Pfizer) 05/16/2022 Covid-19, Mrna, Lnp-s, Pf, B ivalent, 30 Mcg, IM, 12 yrs and above ([employer]) 08/06/2022 Pneumococcal Conjugate Vacc, 13 Valent (Prevnar) [...] PM EDT [facility] [address] [address] Sally Bonilla, RANDELL [address] [address] 07/04/2024 10:30 AM EDT Office Visit Sleep Disorders Ctr [facility] [address] [phone] Andria Goldstein CRNP [address] [place] [address] 07/11/2024 2:00 PM EDT Scheduled Telephone Interventional Pain Center, [facility] [address] [address] Darryn, Nurse Phone Call Interventional Pain [facility] [address] [address] 07/27/2024 12:45 PM EDT Immunization/Injec tion Hematology/Oncology Treatment, [place] [address] [place] [address] Jolanta, Chair 2 Hem Onc Scenery [address] [place] [address] 08/03/2024 12:00 PM EDT Office Visit Family Practice [facility] [address] [address] Petra Marx MD [address] [address] 08/19/2024 10:00 AM EST Office Visit Family Practice [facility] [address] [place] [address] Petra Marx MD [address] [place] [address] 08/30/2024 12:00 PM EST Office Visit Gastroenterology, [facility] [address] [address] Breann Jerome CRNP [address] [place] [address] 09/14/2024 11:00 AM EST Nurse Only Ancillary [address] [place] [address] [place], Nurse [address] [place] [address] 02/02/2025 12:30 PM EDT Imaging Radiology [address] [place] [address] Health Maintenance Due Date Last Done Comments [...] Additional history exists CKD HGB USE SMARTSET 66468 03/17/202503/17, 03/17/2024, 12/25/2023, Additional history exists CKD PHOS USE SMARTSET 40536 03/17/202503/05, 02/18/2024, 05/01/2023, Additional history exists O2 [...] D LEVEL ONCE IN A LIFETIME-USE SMARTSET# 95715 Completed 02/18/2024, 05/01/2023, 12/28/2014, Additional history exists [...] this encounter Medical Devices Implanted Type Area Electronic Engineering Draftsperson Device Identifier Shelf Expiration Date Model / Serial / Lot Port Power Mri W/8fr Cath - [id number] Implanted:Qty : 1 on 11/02/2017 by Ignacio Guevara MD at OR [facility] Right: Internal Jugular CR BARD : PERIPHERAL VASCULAR 07/04/2019 [id number] / / [id number] documented as of this encounter Procedures Procedure Name Priority Date/Time Associated Diagnosis Comments RADIOLOGY EXAM - GENERAL RAD (IMAGES ONLY,NO REPORT) Routine 11/29/2023 8:35 PM EST documented in this encounter Results * RADIOLOGY EXAM - GENERAL RAD (IMAGES ONLY,NO REPORT) (11/29/2023 8:35 PM EST) 11/29/2023 8:33 PM EST Narrative Scheduling, Silent - 06/24/2024 12:15 PM EDT This is an imaging study not interpreted or resulted by a [facility] or [employer] contracted radiologist. Petra Marx MD RADIOLOGY (RAD GENERAL) documented in this encounter Advance Directives Healthcare Agents on File Name Relationship Healthcare Agent Relationship Communication Ivonne Michelle Other - (no specific identity) Health Care Agent Care Teams Policy Adviser Relationship Specialty Start Date End Date Petra Marx MD [address] [place] [address] PCP - General Internal Medicine 11/09/23 documented as of this encounter
--- OUTSIDE RECORDS SUMMARY | 2024-06-30 06:47 | External Medical Summary | Summary of Care ---
Author Name Unknown Organization [facility] Address [address] [place] [address] Phone [phone] Care Team Providers Care Dietetic Aide Name Role Phone Petra Marx MD Primary Care Provider Encounter Details Date Type Department Care Team (Latest Contact Info) Description 02/11/2024 8:45 AM EDT - 02/11/2024 11:59 PM EDT Hospital Encounter Radiology Film File [address] [place] [address] Discharge Disposition: Home - Self [...] Colon polyps 05/24/2024 Overview: 05/2024. Done at [facility]. Three small. Clostridioides difficile infection 03/23/2024 Chronic diastolic congestive heart failure 11/09 Secondary hyperparathyroidism of renal origin Hypoglycemia 06/29/2023 Last Assessment & Plan: Glucose 103 during visit. Reordered freestyle Larisa-patient had previously. Follows with endocrinology at [facility] Stage 3a chronic kidney disease [...] rinse after steroid. Test performed by Lazarus SUPERVISOR BONDING CPFT Moderate persistent asthma w ithout complication 10/11/2019 08/09/2021 Overview: In Check dial performed to assess inhaler technique: 11/25/19 Name of inhalers Albuterol Pass: Yes at 40L/min and Trelegy Ellipta Pass: Yes at 35L/min. Encourage to take deep breaths, use aero chamber, and rinse after steroid. Test performed by Lazarus SUPERVISOR BONDING CPFT Ulcer of left lower extremit y, [...] rinse after steroid. Test performed by Lazarus SUPERVISOR BONDING CPFT Groupl B, by GOLD 2017 classification [...] rinse after steroid. Test performed by Lazarus SUPERVISOR BONDING CPFT Acute. Anemia 10/19/2017 08/09/2021 Malabsorption 10/19/2017 [...] mRNA, LNP-s, No Pre serve, 2-Dose Series ([employer]) 07/12/2021,05/16/2021,11/18/2020,11/04 COVID-19, LNP-s, No Preserve , Josue-sucrose, [...] No 11/19/2023 Does the household have a [facility] source of income? (Household - for [...] Description 06/30/2024 12:30 PM EDT Home Visit [facility] [address] [address] Sally Bonilla, RANDELL [address] [address] 07/04/2024 10:30 AM EDT Office Visit Sleep Disorders Ctr [facility] [address] [phone] Andria Goldstein CRNP [address] [address] 07/11/2024 2:00 PM EDT Scheduled Telephone Interventional Pain Center, [facility] [address] [address] Darryn, Nurse Phone Call Interventional Pain [facility] [address] [address] 07/27/2024 12:45 PM EDT Immunization/Injec tion Hematology/Oncology Treatment, [place] [address] [place] [phone] Jolanta, Chair 2 Hem Onc Scenery [address] [place] [address] 08/03/2024 12:00 PM EDT Office Visit Family Practice [facility] [address] [address] Petra Marx MD [address] [address] 08/19/2024 10:00 AM EST Office Visit Family Practice [facility] [address] [address] Petra Marx MD [address] [place] [address] 08/30/2024 12:00 PM EST Office Visit Gastroenterology, [facility] [address] [address] Breann Jerome CRNP [address] [address] 09/14/2024 11:00 AM EST Nurse Only Ancillary [address] [place] [address] Yanney, Nurse Annual Wellness [address] [place] [address] [place] [address] 02/02/2025 12:30 PM EDT Imaging Radiology [address] [place] [address] Health Maintenance Due Date Last Done Comments [...] Additional history exists CKD HGB USE SMARTSET 66799 03/17/202503/17, 03/17/2024, 12/25/2023, Additional history exists CKD PHOS USE SMARTSET 68864 03/17/202503/05, 02/18/2024, 05/01/2023, Additional history exists O2 [...] D LEVEL ONCE IN A LIFETIME-USE SMARTSET# 03609 Completed 02/18/2024, 05/01/2023, 12/28/2014, Additional history exists [...] this encounter Medical Devices Implanted Type Area Applications Programmer Analyst Device Identifier Shelf Expiration Date Model / Serial / Lot Port Power Mri W/8fr Cath - [id number] Implanted:Qty : 1 on 11/02/2017 by Ignacio Guevara MD at OR [facility] Right: Internal Jugular CR BARD : PERIPHERAL VASCULAR 07/04/2019 [id number] / / [id number] documented as of this encounter Procedures Procedure Name Priority Date/Time Associated Diagnosis Comments RADIOLOGY EXAM - GENERAL RAD (IMAGES ONLY,NO REPORT) Routine 02/11/2024 8:45 AM EDT documented in this encounter Results * RADIOLOGY EXAM - GENERAL RAD (IMAGES ONLY,NO REPORT) (02/11/2024 8:45 AM EDT) 02/11/2024 8:44 AM EDT Narrative Scheduling, Silent - 06/24/2024 11:29 AM EDT This is an imaging study not interpreted or resulted by a [facility] or [employer] [employer] contracted radiologist. Petra Marx MD RADIOLOGY (RAD GENERAL) documented in this encounter Advance Directives Healthcare Agents on File Name Relationship Healthcare Agent Relationship Communication Ivonne Michelle Other - (no specific identity) Health Care Agent Care Teams Dietetic Aide Relationship Specialty Start Date End Date Petra Marx MD [address] [address] PCP - General Internal Medicine 11/09/23 documented as of this encounter
--- OUTSIDE RECORDS SUMMARY | 2024-06-30 06:48 | External Medical Summary | Summary of Care ---
Author Name Unknown Organization [facility] Address [address] [place] [address] Phone [phone] Care Team Providers Care Wealth Management Advisor Name Role Phone Petra Marx MD Primary Care Provider Encounter Details Date Type Department Care Team (Late st Contact Info) Description 02/11/2024 Orders Only Family Practice [facility] system [address] [place] [address] Petra Marx MD [address] [facility] [address] Allergies Active Allergy Reactions Criticality Noted Date Comments Aminoglycosides Nebcin Atropine ? allergy to Atropine Cephalosporins Keflin Dipyridamole Persantine Meperidine And Related ? allergy to Demerol Metolazone 10/03/2021 Severe hypokalemia Parasympathomimetics Urecholine Piperacillin Sod-Tazobactam So Rash 02/03 Prochlorperazine Salicylates ASA Sulfa Antibiotics Bactrim Venlafaxine 02/03/2013 Nervous reaction documented as of this encounter (statuses as of 06/24/2024) Medications Medication Sig Dispensed Refills Start Date [...] as of this encounter (statuses as of 06/24/2024) Active Problems Problem Noted Date Diagnosed Date [...] as of this encounter (statuses as of 06/24/2024) Resolved Problems Problem Noted Date Diagnosed Date [...] rinse after steroid. Test performed by Lazarus SQL TECH CPFT Moderate persistent asthma w ithout complication 10/11/2019 08/09/2021 Overview: In Check dial performed to assess inhaler technique: 11/25/19 Name of inhalers Albuterol Pass: Yes at 40L/min and Trelegy Ellipta Pass: Yes at 35L/min. Encourage to take deep breaths, use aero chamber, and rinse after steroid. Test performed by Lazarus SQL TECH CPFT Ulcer of left lower extremit y, [...] rinse after steroid. Test performed by Lazarus SQL TECH CPFT Groupl B, by GOLD 2017 classification [...] rinse after steroid. Test performed by Lazarus SQL TECH CPFT Acute. Anemia 10/19/2017 08/09/2021 Malabsorption 10/19/2017 [...] as of this encounter (statuses as of 06/24/2024) Immunizations Name Administration Dates Next Due COVID-19 mRNA, LNP-s, No Pre serve, 2-Dose Series ([employer]Haven) 07/12/2021,05/16/2021,11/18/2020,11/04 COVID-19, LNP-s, No Preserve , Josue-sucrose, Ages 12+ (Pfizer) 05/16/2022 Covid-19, Mrna, Lnp-s, Pf, B ivalent, 30 Mcg, IM, 12 yrs and above ([employer]) 08/06/2022 Pneumococcal Conjugate Vacc, 13 Valent (Prevnar) [...] No 11/19/2023 Does the household have a [facility] source of income? (Household - for ages [...] Description 06/30/2024 12:30 PM EDT Home Visit ising at [facility] [address] [address] Sally Bonilla, RN [address] [place] [address] 07/04/2024 10:30 AM EDT Office Visit Sleep Disorders Ctr [facility] [address] [place] [phone] Andria Goldstein CRNP [address] [place] [address] 07/11/2024 2:00 PM EDT Scheduled Telephone Interventional Pain Center, Health system [address] [place] [address] [facility], Nurse Phone Call Interventional Pain [facility] [address] [place] [address] 07/27/2024 12:45 PM EDT Immunization/Injec tion Hematology/Oncology Treatment, [place] [address] [place], [place] [phone] [place], Chair 2 Hem Onc Scenery [address] [place] [address] 08/03/2024 12:00 PM EDT Office Visit Family [facility] [address] [place] [address] Petra Marx MD [address] [place] [address] 08/19/2024 10:00 AM EST Office Visit [facility] [address] [address] Petra Marx MD [address] [place] [address] 08/30/2024 12:00 PM EST Office Visit Gastroenterology, Health system [address] [place] [address] Breann Jerome CRNP [address] [place] [address] 09/14/2024 11:00 AM EST Nurse Only Ancillary [address] [place] [address] [place], Nurse [address] [place] [address] 02/02/2025 12:30 PM EDT Imaging Radiology [address] [place] [address] Health Maintenance Due Date Last Done Comments [...] Additional history exists CKD HGB USE SMARTSET 19245 03/17/202503/17, 03/17/2024, 12/25/2023, Additional history exists CKD PHOS USE SMARTSET 51981 03/17/202503/05, 02/18/2024, 05/01/2023, Additional history exists O2 [...] D LEVEL ONCE IN A LIFETIME-USE SMARTSET# [id number] Completed 02/18/2024, 05/01/2023, 12/28/2014, Additional history exists [...] this encounter Medical Devices Implanted Type Area Patient Service Associate Device Identifier Shelf Expiration Date Model / Serial / Lot Port Power Mri W/8fr Cath - [id number] Implanted:Qty : 1 on 11/02/2017 by Ignacio Guevara MD at OR [facility] Right: Internal Jugular CR BARD : PERIPHERAL VASCULAR 07/04/2019 [id number] / / [id number] documented as of this encounter Procedures Procedure [...] interpreted or resulted by a [facility] or [employer] contracted radiologist. Petra Marx MD RADIOLOGY (RAD GENERAL) documented in this encounter Additional Health Concerns [...] specific identity) Health Care Agent Care Teams Wealth Management Advisor Relationship Specialty Start Date End Date Petra Marx MD [address] [place] [address] PCP - General Internal Medicine 11/09/23 documented as of this encounter
--- OUTSIDE RECORDS SUMMARY | 2024-06-30 06:48 | External Medical Summary | Summary of Care ---
Author Name Unknown Organization [facility] Address [address] [place] [address] Phone [phone] Care Team Providers Care Band Teacher Name Role Phone Petra Marx MD Primary Care Provider Encounter Details Date Type Department Care Team (Late st Contact Info) Description 02/06/2024 Orders Only Family Practice [facility] [address] [place] [address] Petra Marx MD [address] [facility] [place] [address] Allergies Active Allergy Reactions Criticality [...] Colon polyps 05/24/2024 Overview: 05/2024. Done at [facility]. Three small. Clostridioides difficile infection 03/23/2024 Chronic diastolic congestive heart failure 11/09 Secondary hyperparathyroidism of renal origin Hypoglycemia 06/29/2023 Last Assessment & Plan: Glucose 103 during visit. Reordered freestyle Larisa-patient had previously. Follows with endocrinology at [facility] Stage 3a chronic kidney disease 04/16/2023 COPD, [...] rinse after steroid. Test performed by Lazarus SWATCH CUTTER CPFT Moderate persistent asthma w ithout complication 10/11/2019 08/09/2021 Overview: In Check dial performed to assess inhaler technique: 11/25/19 Name of inhalers Albuterol Pass: Yes at 40L/min and Trelegy Ellipta Pass: Yes at 35L/min. Encourage to take deep breaths, use aero chamber, and rinse after steroid. Test performed by Lazarus SWATCH CUTTER CPFT Ulcer of left lower extremit y, [...] rinse after steroid. Test performed by Lazarus SWATCH CUTTER CPFT Groupl B, by GOLD 2017 classification [...] rinse after steroid. Test performed by Lazarus SWATCH CUTTER CPFT Acute. Anemia 10/19/2017 08/09/2021 Malabsorption 10/19/2017 [...] mRNA, LNP-s, No Pre serve, 2-Dose Series (viseto) 07/12/2021,05/16/2021,11/18/2020,11/04 COVID-19, LNP-s, No Preserve , Josue-sucrose, Ages 12+ (Pfizer) 05/16/2022 Covid-19, Mrna, Lnp-s, Pf, B ivalent, 30 Mcg, IM, 12 yrs and above (viseto) 08/06/2022 Pneumococcal Conjugate Vacc, 13 Valent (Prevnar) [...] No 11/19/2023 Does the household have a [facility] source of income? (Household - for [...] 12:30 PM EDT Home Visit ising at [facility] [address] [place] [address] [address] Sally Bonilla, RN [address] [place] [address] 07/04/2024 10:30 AM EDT Office Visit Sleep Disorders Ctr [facility] [address] [place] [phone] Andria Goldstein CRNP [address] [place] [address] 07/11/2024 2:00 PM EDT Scheduled Telephone Interventional Pain Center, [facility] [address] [place] [address] [facility], Nurse Phone Call Interventional Pain [facility] [address] [place] [address] 07/27/2024 12:45 PM EDT Immunization/Injec tion Hematology/Oncology Treatment, [place] [address] [place], [place] [phone] Park, Chair 2 Hem Onc Scenery [address] [place] [address] 08/03/2024 12:00 PM EDT Office Visit Family [facility] [address] [place] [address] Petra Marx MD [address] [place] [address] 08/19/2024 10:00 AM EST Office Visit [facility] [address] [address] [address] Petra Marx MD [address] [place] [address] 08/30/2024 12:00 PM EST Office Visit Gastroenterology, [facility] [address] [place] [address] Breann Jerome CRNP [address] [place] [address] 09/14/2024 11:00 AM EST Nurse Only Ancillary [address] [place] [address] [place], Nurse [address] [place] [address] 02/02/2025 12:30 PM EDT Imaging Radiology [address] [place] [address] Health Maintenance Due Date Last Done Comments [...] Additional history exists CKD HGB USE SMARTSET 85878 03/17/202503/17, 03/17/2024, 12/25/2023, Additional history exists CKD PHOS USE SMARTSET 20189 03/17/202503/05, 02/18/2024, 05/01/2023, Additional history exists O2 [...] D LEVEL ONCE IN A LIFETIME-USE SMARTSET# [id number] Completed 02/18/2024, 05/01/2023, 12/28/2014, Additional history exists [...] this encounter Medical Devices Implanted Type Area Carton Filling Machine Operator Device Identifier Shelf Expiration Date Model / Serial / Lot Port Power Mri W/8fr Cath - [id number] Implanted:Qty : 1 on 11/02/2017 by Ignacio Guevara MD at OR [facility] Right: Internal Jugular CR BARD : PERIPHERAL VASCULAR 07/04/2019 [id number] / / [id number] documented as of this encounter Procedures Procedure [...] interpreted or resulted by a [facility] or [employer] contracted radiologist. Petra Marx MD RADIOLOGY (RAD [...] specific identity) Health Care Agent Care Teams Band Teacher Relationship Specialty Start Date End Date Petra Marx MD [address] [place] [address] PCP - General Internal Medicine 11/09/23 documented as of this encounter
--- OUTSIDE RECORDS SUMMARY | 2024-06-30 06:48 | External Medical Summary | Summary of Care ---
Author Name Unknown Organization [facility] Address [address] [place] [address] Phone [phone] Care Team Providers Care Bandoleer Straightener Stamper Name Role Phone Petra Marx MD Primary Care Provider Encounter Details Date Type Department Care Team (Latest Contact Info) Description 02/04/2024 6:45 PM EDT - 02/04/2024 11:59 PM EDT Hospital Encounter Radiology Film File [address] [place] [address] Discharge Disposition: Home - Self [...] polyps 05/24/2024 Overview: 05/2024. Done at [facility]. Three small. Clostridioides difficile infection 03/23/2024 Chronic diastolic congestive heart failure 11/09 Secondary hyperparathyroidism of renal origin Hypoglycemia 06/29/2023 Last Assessment & Plan: Glucose 103 during visit. Reordered freestyle Larisa-patient had previously. Follows with endocrinology at [facility] Stage 3a chronic kidney disease 04/16/2023 COPD, [...] rinse after steroid. Test performed by Lazarus MOLDER MACHINE TENDER CPFT Moderate persistent asthma w ithout complication 10/11/2019 08/09/2021 Overview: In Check dial performed to assess inhaler technique: 11/25/19 Name of inhalers Albuterol Pass: Yes at 40L/min and Trelegy Ellipta Pass: Yes at 35L/min. Encourage to take deep breaths, use aero chamber, and rinse after steroid. Test performed by Lazarus MOLDER MACHINE TENDER CPFT Ulcer of left lower extremit y, [...] rinse after steroid. Test performed by Lazarus MOLDER MACHINE TENDER CPFT Groupl B, by GOLD 2017 classification [...] rinse after steroid. Test performed by Lazarus MOLDER MACHINE TENDER CPFT Acute. Anemia 10/19/2017 08/09/2021 Malabsorption 10/19/2017 [...] mRNA, LNP-s, No Pre serve, 2-Dose Series ([employer]) 07/12/2021,05/16/2021,11/18/2020,11/04 COVID-19, LNP-s, No Preserve , Josue-sucrose, [...] No 11/19/2023 Does the household have a [facility] source of income? (Household - for ages [...] Description 06/30/2024 12:30 PM EDT Home Visit [facility] [address] [place] [address] [address] Sally Bonilla, [place]ANDE[place] [address] [place] [address] 07/04/2024 10:30 AM EDT Office Visit Sleep Disorders Ctr [facility] [address] [place] [address] [phone] Andria Goldstein CRNP [address] [place] [address] 07/11/2024 2:00 PM EDT Scheduled Telephone Interventional Pain Center, [facility] [address] [place] [address] [place], Nurse Phone Call Interventional Pain [facility] [address] [place] [address] 07/27/2024 12:45 PM EDT Immunization/Injec tion Hematology/Oncology Treatment, [place] [address] [place] [phone] [place], Chair 2 Hem Onc Scenery [address] [place] [address] 08/03/2024 12:00 PM EDT Office Visit Family Practice [facility] [address] [place] [address] [address] Petra Marx MD [address] [place] [address] 08/19/2024 10:00 AM EST Office Visit Family Practice [facility] [address] [place] [address] Petra Marx MD [address] [place] [address] 08/30/2024 12:00 PM EST Office Visit Gastroenterology, [facility] [address] [place] [address] [address] Breann Jerome CRNP [address] [place] [address] 09/14/2024 11:00 AM EST Nurse Only Ancillary [address] [place] [address] [place], Nurse [facility] [address] [place] [address] [place] [address] 02/02/2025 12:30 PM EDT Imaging Radiology [address] [place] [address] Health Maintenance Due Date Last Done Comments [...] Additional history exists CKD HGB USE SMARTSET 31630 03/17/202503/17, 03/17/2024, 12/25/2023, Additional history exists CKD PHOS USE SMARTSET 53809 03/17/202503/05, 02/18/2024, 05/01/2023, Additional history exists O2 [...] D LEVEL ONCE IN A LIFETIME-USE SMARTSET# 36636 Completed 02/18/2024, 05/01/2023, 12/28/2014, Additional history exists [...] this encounter Medical Devices Implanted Type Area Heel Attacher Wood Device Identifier Shelf Expiration Date Model / Serial / Lot Port Power Mri W/8fr Cath - [id number] Implanted:Qty : 1 on 11/02/2017 by Ignacio Guevara MD at OR [facility] Right: Internal Jugular CR BARD : PERIPHERAL VASCULAR 07/04/2019 [id number] / / [id number] documented as of this encounter Procedures Procedure Name Priority Date/Time Associated Diagnosis Comments RADIOLOGY EXAM - CT (IMAGES ONLY, NO REPORT) Routine 02/04/2024 6:45 PM EDT documented in this encounter Results * RADIOLOGY EXAM - CT (IMAGES ONLY, NO REPORT) (02/04/2024 6:45 PM EDT) 02/04/2024 6:38 PM EDT Narrative Scheduling, Silent - 06/24/2024 11:31 AM EDT This is an imaging study not interpreted or resulted by a [facility] or [employer] contracted radiologist. Petra Marx MD RAD CT documented in this encounter Advance Directives Healthcare Agents on File Name Relationship Healthcare Agent Relationship Communication Ivonne Michelle Other - (no specific identity) Health Care Agent Care Teams Bandoleer Straightener Stamper Relationship Specialty Start Date End Date Perta Marx MD [address] [place] [address] PCP - General Internal Medicine 11/09/23 documented as of this encounter
--- OUTSIDE RECORDS SUMMARY | 2024-06-30 06:48 | External Medical Summary | Summary of Care ---
Author Name Unknown Organization [facility] Address [address] [place] [address] Phone [phone] Care Team Providers Care Rail Bonder Name Role Phone Petra Marx MD Primary Care Provider Encounter Details Date Type Department Care Team (Latest Contact Info) Description 11/30/2023 1:25 AM EST - 11/30/2023 11:59 PM [facility] Hospital Encounter Radiology Film File [address] [place] [address] Discharge Disposition: Home - Self [...] polyps 05/24/2024 Overview: 05/2024. Done at [facility]. Three small. Clostridioides difficile infection 03/23/2024 Chronic diastolic congestive heart failure 11/09 Secondary hyperparathyroidism of renal origin Hypoglycemia 06/29/2023 Last Assessment & Plan: Glucose 103 during visit. Reordered freestyle Larisa-patient had previously. Follows with endocrinology at [facility] Stage 3a chronic kidney disease 04/16/2023 COPD, [...] rinse after steroid. Test performed by Lazarus TECHNICAL OPERATIONS SPECIALIST CPFT Moderate persistent asthma w ithout complication 10/11/2019 08/09/2021 Overview: In Check dial performed to assess inhaler technique: 11/25/19 Name of inhalers Albuterol Pass: Yes at 40L/min and Trelegy Ellipta Pass: Yes at 35L/min. Encourage to take deep breaths, use aero chamber, and rinse after steroid. Test performed by Lazarus TECHNICAL OPERATIONS SPECIALIST CPFT Ulcer of left lower extremit [...] rinse after steroid. Test performed by Lazarus TECHNICAL OPERATIONS SPECIALIST CPFT Groupl B, by GOLD 2017 [...] rinse after steroid. Test performed by Lazarus TECHNICAL OPERATIONS SPECIALIST CPFT Acute. Anemia 10/19/2017 08/09/2021 Malabsorption [...] mRNA, LNP-s, No Pre serve, 2-Dose Series (Clustrix) 07/12/2021,05/16/2021,11/18/2020,11/04 COVID-19, LNP-s, No Preserve , Josue-sucrose, Ages 12+ (Pfizer) 05/16/2022 Covid-19, Mrna, Lnp-s, Pf, B ivalent, 30 Mcg, IM, 12 yrs and above (Clustrix) 08/06/2022 Pneumococcal Conjugate Vacc, 13 Valent (Prevnar) [...] PM EDT [facility] [address] [place] [address] [address] Sally Bonilla, RANDELL [address] [place] [address] 07/04/2024 10:30 AM EDT Office Visit Sleep Disorders Ctr [facility] [address] [place] [address] [phone] Andria Goldstein CRNP [address] [place] [address] 07/11/2024 2:00 PM EDT Scheduled Telephone Interventional Pain Center, [facility] [address] [address] [place], Nurse Phone Call Interventional Pain [facility] [address] [place] [address] 07/27/2024 12:45 PM EDT Immunization/Injec tion Hematology/Oncology Treatment, [place] [address] [place] [phone] [place], Chair 2 Hem Onc Scenery [address] [place] [address] 08/03/2024 12:00 PM EDT Office Visit Family Practice [facility] [address] [place] [address] [address] Petra Marx MD [address] [place] [address] 08/19/2024 10:00 AM EST Office Visit Family Practice [facility] [address] [place] [address] Petra Marx MD [address] [place] [address] 08/30/2024 12:00 PM EST Office Visit Gastroenterology, [facility] [address] [address] Breann Jerome CRNP [address] [place] [address] 09/14/2024 11:00 AM EST Nurse Only Ancillary [address] [place] [address] [place], Nurse [address] [place] [address] 02/02/2025 12:30 PM EDT Imaging Radiology [address] [place] [address] Health Maintenance Due Date Last Done Comments [...] Additional history exists CKD HGB USE SMARTSET 08200 03/17/202503/17, 03/17/2024, 12/25/2023, Additional history exists CKD PHOS USE SMARTSET 40093 03/17/202503/05, 02/18/2024, 05/01/2023, Additional history exists O2 [...] D LEVEL ONCE IN A LIFETIME-USE SMARTSET# 48022 Completed 02/18/2024, 05/01/2023, 12/28/2014, Additional history exists [...] this encounter Medical Devices Implanted Type Area Wall Cleaner Device Identifier Shelf Expiration Date Model / Serial / Lot Port Power Mri W/8fr Cath - [id number] Implanted:Qty : 1 on 11/02/2017 by Ignacio Guevara MD at OR [facility] Right: Internal Jugular CR BARD : PERIPHERAL VASCULAR 07/04/2019 [id number] / / [id number] documented as of this encounter Procedures Procedure Name Priority Date/Time Associated Diagnosis Comments RADIOLOGY EXAM - CT (IMAGES ONLY, NO REPORT) Routine 11/30/2023 1:25 AM EST documented in this encounter Results * RADIOLOGY EXAM - CT (IMAGES ONLY, NO REPORT) (11/30/2023 1:25 AM EST) 11/30/2023 1:21 AM EST Narrative Scheduling, Silent - 06/24/2024 10:33 AM EDT This is an imaging study not interpreted or resulted by a [employer] or [employer] contracted radiologist. Petra Marx MD RAD CT documented in this encounter Advance Directives Healthcare Agents on File Name Relationship Healthcare Agent Relationship Communication Ivonne Michelle Other - (no specific identity) Health Care Agent Care Teams Rail Bonder Relationship Specialty Start Date End Date Petra Marx MD [address] [place] [address] PCP - General Internal Medicine 11/09/23 documented as of this encounter
--- OUTSIDE RECORDS SUMMARY | 2024-06-30 06:48 | External Medical Summary | Summary of Care ---
Author Name Unknown Organization [facility] Address [address] [place] [address] Phone [phone] Care Team Providers Care Wallpaperer Helper Name Role Phone Petra Marx MD Primary Care Provider Encounter Details Date Type Department Care Team (Late st Contact Info) Description 02/04/2024 Orders Only Family Practice [facility] [address] [place] [address] Petra Marx MD [address] [place] [address] Allergies Active Allergy Reactions Criticality [...] rinse after steroid. Test performed by Lazarus SCHEDULING AGENT CPFT Moderate persistent asthma w ithout complication 10/11/2019 08/09/2021 Overview: In Check dial performed to assess inhaler technique: 11/25/19 Name of inhalers Albuterol Pass: Yes at 40L/min and Trelegy Ellipta Pass: Yes at 35L/min. Encourage to take deep breaths, use aero chamber, and rinse after steroid. Test performed by Lazarus SCHEDULING AGENT CPFT Ulcer of left lower extremit [...] rinse after steroid. Test performed by Lazarus SCHEDULING AGENT CPFT Groupl B, by GOLD 2017 [...] rinse after steroid. Test performed by Lazarus SCHEDULING AGENT CPFT Acute. Anemia 10/19/2017 08/09/2021 Malabsorption [...] mRNA, LNP-s, No Pre serve, 2-Dose Series (mPort) 07/12/2021,05/16/2021,11/18/2020,11/04 COVID-19, LNP-s, No Preserve , Josue-sucrose, Ages 12+ (Pfizer) 05/16/2022 Covid-19, Mrna, Lnp-s, Pf, B ivalent, 30 Mcg, IM, 12 yrs and above (mPort) 08/06/2022 Pneumococcal Conjugate Vacc, 13 Valent (Prevnar) [...] 11/19/2023 Does the household have a [facility] source of income? (Household - for [...] 12:30 PM EDT Home Visit ising at [facility] [address] [address] [address] Sally Bonilla, RN [address] [place] [address] 07/04/2024 10:30 AM EDT Office Visit Sleep Disorders Ctr [facility] [address] [place] [phone] Andria Goldstein CRNP [address] [place] [address] 07/11/2024 2:00 PM EDT Scheduled Telephone Interventional Pain Center, [facility] [address] [place] [address] [facility], Nurse Phone Call Interventional Pain [facility] [address] [place] [address] 07/27/2024 12:45 PM EDT Immunization/Injec tion Hematology/Oncology Treatment, [place] [address] [place], [place] [phone] Park, Chair 2 Hem Onc Scenery [address] [place] [address] 08/03/2024 12:00 PM EDT Office Visit Family [facility] [address] [place] [address] Petra Marx MD [address] [place] [address] 08/19/2024 10:00 AM EST Office Visit [facility] [address] [place] [address] [address] Petra Marx MD [address] [place] [address] 08/30/2024 12:00 PM EST Office Visit Gastroenterology, [facility] [address] [place] [address] Breann Jerome CRNP [address] [place] [address] 09/14/2024 11:00 AM EST Nurse Only Ancillary [address] [place] [address] [place], Nurse [address] [place] [address] 02/02/2025 12:30 PM EDT Imaging Radiology [address] [place] [address] Health Maintenance Due Date Last Done Comments [...] Additional history exists CKD HGB USE SMARTSET 64558 03/17/202503/17, 03/17/2024, 12/25/2023, Additional history exists CKD PHOS USE SMARTSET 65832 03/17/202503/05, 02/18/2024, 05/01/2023, Additional history exists O2 [...] D LEVEL ONCE IN A LIFETIME-USE SMARTSET# 59530 Completed 02/18/2024, 05/01/2023, 12/28/2014, Additional history exists [...] this encounter Medical Devices Implanted Type Area Retail Office Manager Device Identifier Shelf Expiration Date Model / Serial / Lot Port Power Mri W/8fr Cath - [id number] Implanted:Qty : 1 on 11/02/2017 by Ignacio Guevara MD at OR [facility] Right: Internal Jugular CR BARD : PERIPHERAL VASCULAR 07/04/2019 [id number] / / [id number] documented as of this encounter Procedures Procedure [...] interpreted or resulted by a [facility] or [facility] contracted radiologist. Petra Marx MD RAD CT documented in this encounter Additional Health Concerns [...] specific identity) Health Care Agent Care Teams Wallpaperer Helper Relationship Specialty Start Date End Date Petra Marx MD [address] [place] [address] PCP - General Internal Medicine 11/09/23 documented as of this encounter
--- OUTSIDE RECORDS SUMMARY | 2024-06-30 06:48 | External Medical Summary | Summary of Care ---
Author Name Unknown Organization [facility] Address [address] [place] [address] Phone [phone] Care Team Providers Care Order Packer Name Role Phone Petra Marx MD Primary Care Provider Encounter Details Date Type Department Care Team (Latest Contact Info) Description 02/10/2024 11:10 AM EDT - 02/10/2024 3:54 PM EDT Hospital Encounter Radiology Film File [address] [place] [address] Discharge Disposition: Home - Self [...] Colon polyps 05/24/2024 Overview: 05/2024. Done at [facility]. Three small. Clostridioides difficile infection 03/23/2024 Chronic diastolic congestive heart failure 11/09 Secondary hyperparathyroidism of renal origin Hypoglycemia 06/29/2023 Last Assessment & Plan: Glucose 103 during visit. Reordered freestyle Larisa-patient had previously. Follows with endocrinology at [facility] Stage 3a chronic kidney disease 04/16/2023 COPD, [...] rinse after steroid. Test performed by Lazarus BEVERAGE DISTILLER CPFT Moderate persistent asthma w ithout complication 10/11/2019 08/09/2021 Overview: In Check dial performed to assess inhaler technique: 11/25/19 Name of inhalers Albuterol Pass: Yes at 40L/min and Trelegy Ellipta Pass: Yes at 35L/min. Encourage to take deep breaths, use aero chamber, and rinse after steroid. Test performed by Lazarus BEVERAGE DISTILLER CPFT Ulcer of left lower extremit y, [...] rinse after steroid. Test performed by Lazarus BEVERAGE DISTILLER CPFT Groupl B, by GOLD 2017 classification [...] rinse after steroid. Test performed by Lazarus BEVERAGE DISTILLER CPFT Acute. Anemia 10/19/2017 08/09/2021 Malabsorption 10/19/2017 [...] mRNA, LNP-s, No Pre serve, 2-Dose Series ([facility]) 07/12/2021,05/16/2021,11/18/2020,11/04 COVID-19, LNP-s, No Preserve , Josue-sucrose, [...] No 11/19/2023 Does the household have a [facility] source of income? (Household - for [...] Description 06/30/2024 12:30 PM EDT Home Visit [facility] [address] [place] [address] [address] Sally Bonilla, [place] [address] [place] [address] 07/04/2024 10:30 AM EDT Office Visit Sleep Disorders Ctr [facility] [address] [address] [phone] Andria Goldstein CRNP [address] [place] [address] 07/11/2024 2:00 PM EDT Scheduled Telephone Interventional Pain Center, [facility] [address] [address] [address] [place], Nurse Phone Call Interventional Pain [facility] [address] [place] [address] 07/27/2024 12:45 PM EDT Immunization/Injec tion Hematology/Oncology Treatment, [place] [address] [place] [phone] [place], Chair 2 Hem Onc Scenery [address] [place] [address] 08/03/2024 12:00 PM EDT Office Visit Family Practice [facility] [address] [place] [address] [address] Petra Marx MD [address] [place] [address] 08/19/2024 10:00 AM EST Office Visit Family Practice [facility] [address] [address] [address] Petra Marx MD [address] [place] [address] 08/30/2024 12:00 PM EST Office Visit Gastroenterology, [facility] [address] [address] [address] Breann Jerome CRNP [address] [place] [address] 09/14/2024 11:00 AM EST Nurse Only Ancillary [address] [place] [address] [place], Nurse Annual Wellness [address] [place] [address] [place] [address] 02/02/2025 12:30 PM EDT Imaging Radiology [address] [place] [address] Health Maintenance Due Date Last Done Comments [...] Additional history exists CKD HGB USE SMARTSET 21976 03/17/202503/17, 03/17/2024, 12/25/2023, Additional history exists CKD PHOS USE SMARTSET 88742 03/17/202503/05, 02/18/2024, 05/01/2023, Additional history exists O2 [...] D LEVEL ONCE IN A LIFETIME-USE SMARTSET# 47742 Completed 02/18/2024, 05/01/2023, 12/28/2014, Additional history exists [...] this encounter Medical Devices Implanted Type Area Automat Watcher Device Identifier Shelf Expiration Date Model / Serial / Lot Port Power Mri W/8fr Cath - [id number] Implanted:Qty : 1 on 11/02/2017 by Ignacio Guevara MD at OR [facility] Right: Internal Jugular CR BARD : PERIPHERAL VASCULAR 07/04/2019 [id number] / / [id number] documented as of this encounter Procedures Procedure Name Priority Date/Time Associated Diagnosis Comments RADIOLOGY EXAM - GENERAL RAD (IMAGES ONLY,NO REPORT) Routine 02/10/2024 11:10 AM EDT documented in this encounter Results * RADIOLOGY EXAM - GENERAL RAD (IMAGES ONLY,NO REPORT) (02/10/2024 11:10 AM EDT) 02/10/2024 11:0 7 AM EDT Narrative Scheduling, Silent - 06/24/2024 11:21 AM EDT This is an imaging study not interpreted or resulted by a [facility] or [facility] contracted radiologist. Petra Marx MD RADIOLOGY (RAD GENERAL) documented in this encounter Advance Directives Healthcare Agents on File Name Relationship Healthcare Agent Relationship Communication Ivonne Michelle Other - (no specific identity) Health Care Agent Care Teams Order Packer Relationship Specialty Start Date End Date Petra Marx MD [address] [place] [address] PCP - General Internal Medicine 11/09/23 documented as of this encounter
--- OUTSIDE RECORDS SUMMARY | 2024-06-30 06:48 | External Medical Summary | Summary of Care ---
Author Name Unknown Organization [facility] Address [address] [place] [address] Phone [phone] Care Team Providers Care Marketing Finance Specialist Name Role Phone Petra Marx MD Primary Care Provider Encounter Details Date Type Department Care Team (Latest Contact Info) Description 02/09/2024 8:30 AM EDT - 02/09/2024 11:59 PM EDT Hospital Encounter Radiology Film File [address] [place] [address] Discharge Disposition: Home - Self [...] Colon polyps 05/24/2024 Overview: 05/2024. Done at [facility]. Three small. Clostridioides difficile infection 03/23/2024 Chronic diastolic congestive heart failure 11/09 Secondary hyperparathyroidism of renal origin Hypoglycemia 06/29/2023 Last Assessment & Plan: Glucose 103 during visit. Reordered freestyle Larisa-patient had previously. Follows with endocrinology at [facility] Stage 3a chronic kidney disease 04/16/2023 [...] rinse after steroid. Test performed by Lazarus TEACHING ASSOCIATE CPFT Moderate persistent asthma w ithout complication 10/11/2019 08/09/2021 Overview: In Check dial performed to assess inhaler technique: 11/25/19 Name of inhalers Albuterol Pass: Yes at 40L/min and Trelegy Ellipta Pass: Yes at 35L/min. Encourage to take deep breaths, use aero chamber, and rinse after steroid. Test performed by Lazarus TEACHING ASSOCIATE CPFT Ulcer of left lower extremit [...] rinse after steroid. Test performed by Lazarus TEACHING ASSOCIATE CPFT Groupl B, by GOLD 2017 [...] rinse after steroid. Test performed by Lazarus TEACHING ASSOCIATE CPFT Acute. Anemia 10/19/2017 08/09/2021 Malabsorption [...] mRNA, LNP-s, No Pre serve, 2-Dose Series ([facility]) 07/12/2021,05/16/2021,11/18/2020,11/04 COVID-19, LNP-s, No Preserve , Josue-sucrose, [...] No 11/19/2023 Does the household have a [facility] source of income? (Household - for [...] Description 06/30/2024 12:30 PM EDT Home Visit [facility] [address] [address] [address] Sally Bonilla, [place] [address] [place] [address] 07/04/2024 10:30 AM EDT Office Visit Sleep Disorders Ctr [facility] [address] [place] [address] [phone] Andria Goldstein CRNP [address] [place] [address] 07/11/2024 2:00 PM EDT Scheduled Telephone Interventional Pain Center, [facility] [address] [address] [address] Darryn, Nurse Phone Call Interventional Pain [facility] [address] [place] [address] 07/27/2024 12:45 PM EDT Immunization/Injec tion Hematology/Oncology Treatment, [place] [address] [place] [phone] Jol[place], Chair 2 Hem Onc Scenery [address] [place] [address] 08/03/2024 12:00 PM EDT Office Visit Family Practice [facility] [address] [address] [address] Petra Marx MD [address] [place] [address] 08/19/2024 10:00 AM EST Office Visit Family Practice [facility] [address] [address] [address] Petra Marx MD [address] [place] [address] 08/30/2024 12:00 PM EST Office Visit Gastroenterology, [facility] [address] [address] Breann Jerome CRNP [address] [place] [address] 09/14/2024 11:00 AM EST Nurse Only Ancillary [address] [place] [address] [place], Nurse Annual Wellness [address] [place] [address] [place] [address] 02/02/2025 12:30 PM EDT Imaging Radiology [address] [place] [address] Health Maintenance Due Date Last Done Comments [...] Additional history exists CKD HGB USE SMARTSET 80050 03/17/202503/17, 03/17/2024, 12/25/2023, Additional history exists CKD PHOS USE SMARTSET 50945 03/17/202503/05, 02/18/2024, 05/01/2023, Additional history exists O2 [...] D LEVEL ONCE IN A LIFETIME-USE SMARTSET# 58051 Completed 02/18/2024, 05/01/2023, 12/28/2014, Additional history exists [...] this encounter Medical Devices Implanted Type Area Solution Maker Device Identifier Shelf Expiration Date Model / Serial / Lot Port Power Mri W/8fr Cath - [id number] Implanted:Qty : 1 on 11/02/2017 by Ignacio Guevara MD at OR [facility] Right: Internal Jugular CR BARD : PERIPHERAL VASCULAR 07/04/2019 [id number] / / [id number] documented as of this encounter Procedures Procedure Name Priority Date/Time Associated Diagnosis Comments RADIOLOGY EXAM - GENERAL RAD (IMAGES ONLY,NO REPORT) Routine 02/09/2024 8:30 AM EDT documented in this encounter Results * RADIOLOGY EXAM - GENERAL RAD (IMAGES ONLY,NO REPORT) (02/09/2024 8:30 AM EDT) 02/09/2024 8:30 AM EDT Narrative Scheduling, Silent - 06/24/2024 10:45 AM EDT This is an imaging study not interpreted or resulted by a [facility] or [facility] contracted radiologist. Petra Marx MD RADIOLOGY (RAD GENERAL) documented in this encounter Advance Directives Healthcare Agents on File Name Relationship Healthcare Agent Relationship Communication Ivonne Michelle Other - (no specific identity) Health Care Agent Care Teams Marketing Finance Specialist Relationship Specialty Start Date End Date Petra Marx MD [address] [place] [address] PCP - General Internal Medicine 11/09/23 documented as of this encounter
--- OUTSIDE RECORDS SUMMARY | 2024-06-30 06:48 | External Medical Summary | Summary of Care ---
Author Name Unknown Organization [facility] Address [address] [place] [address] Phone [phone] Care Team Providers Care Driver License Examiner Name Role Phone Petra Marx MD Primary Care Provider Encounter Details Date Type Department Care Team (Late st Contact Info) Description 02/08/2024 Orders Only Family Practice [facility] [address] [place] [address] Petra Marx MD [address] [facility] [place] [address] Allergies Active Allergy Reactions Criticality [...] polyps 05/24/2024 Overview: 05/2024. Done at [facility]. Three small. Clostridioides difficile infection 03/23/2024 Chronic diastolic congestive heart failure 11/09 Secondary hyperparathyroidism of renal origin Hypoglycemia 06/29/2023 Last Assessment & Plan: Glucose 103 during visit. Reordered freestyle Larisa-patient had previously. Follows with endocrinology at [facility] Stage 3a chronic kidney disease 04/16/2023 COPD, [...] after steroid. Test performed by Lazarus RN CLINICAL QUALITY CPFT Moderate persistent asthma w ithout complication 10/11/2019 08/09/2021 Overview: In Check dial performed to assess inhaler technique: 11/25/19 Name of inhalers Albuterol Pass: Yes at 40L/min and Trelegy Ellipta Pass: Yes at 35L/min. Encourage to take deep breaths, use aero chamber, and rinse after steroid. Test performed by Lazarus RN CLINICAL QUALITY CPFT Ulcer of left lower extremit y, [...] after steroid. Test performed by Lazarus RN CLINICAL QUALITY CPFT Groupl B, by GOLD 2017 classification [...] after steroid. Test performed by Lazarus RN CLINICAL QUALITY CPFT Acute. Anemia 10/19/2017 08/09/2021 Malabsorption 10/19/2017 [...] mRNA, LNP-s, No Pre serve, 2-Dose Series ([employer]) 07/12/2021,05/16/2021,11/18/2020,11/04 COVID-19, LNP-s, No Preserve , Josue-sucrose, Ages 12+ (Pfizer) 05/16/2022 Covid-19, Mrna, Lnp-s, Pf, B ivalent, 30 Mcg, IM, 12 yrs and above ([employer]) 08/06/2022 Pneumococcal Conjugate Vacc, 13 Valent (Prevnar) [...] Does the household have a [facility] source of income? (Household - for [...] 12:30 PM EDT Home Visit ising at [facility] [address] [address] Sally Bonilla, RN [address] [place] [address] [address] 07/04/2024 10:30 AM EDT Office Visit Sleep Disorders Ctr [facility] [address] [place] [phone] Andria Goldstein CRNP [address] [place] [address] 07/11/2024 2:00 PM EDT Scheduled Telephone Interventional Pain Center, [facility] [address] [place] [address] [facility], Nurse Phone Call Interventional Pain [facility] [address] [place] [address] 07/27/2024 12:45 PM EDT Immunization/Injec tion Hematology/Oncology Treatment, [place] [address] [place], [place] [phone] [place], Chair 2 Hem Onc Scenery [address] [place] [address] 08/03/2024 12:00 PM EDT Office Visit Family [facility] [address] [place] [address] Petra Marx MD [address] [place] [address] 08/19/2024 10:00 AM EST [facility] [address] [address] Petra Marx MD [address] [place] [address] 08/30/2024 12:00 PM EST Office Visit Gastroenterology, [facility] [address] [place] [address] Breann Jerome CRNP [address] [place] [address] 09/14/2024 11:00 AM EST Nurse Only Ancillary [address] [place] [address] [place], Nurse [address] [place] [address] 02/02/2025 12:30 PM EDT Imaging Radiology [address] [place] [address] Health Maintenance Due Date Last Done Comments [...] Additional history exists CKD HGB USE SMARTSET 22975 03/17/202503/17, 03/17/2024, 12/25/2023, Additional history exists CKD PHOS USE SMARTSET 98237 03/17/202503/05, 02/18/2024, 05/01/2023, Additional history exists O2 [...] D LEVEL ONCE IN A LIFETIME-USE SMARTSET# 12512 Completed 02/18/2024, 05/01/2023, 12/28/2014, Additional history exists [...] this encounter Medical Devices Implanted Type Area Food Supervisor Device Identifier Shelf Expiration Date Model / Serial / Lot Port Power Mri W/8fr Cath - [id number] Implanted:Qty : 1 on 11/02/2017 by Ignacio Guevara MD at OR [facility] Right: Internal Jugular CR BARD : PERIPHERAL VASCULAR 07/04/2019 [id number] / / [id number] documented as of this encounter Procedures Procedure [...] interpreted or resulted by a [facility] or [facility] contracted radiologist. Petra Marx MD RADIOLOGY (RAD [...] specific identity) Health Care Agent Care Teams Driver License Examiner Relationship Specialty Start Date End Date Petra Marx MD [address] [place] [address] PCP - General Internal Medicine 11/09/23 documented as of this encounter
--- OUTSIDE RECORDS SUMMARY | 2024-06-30 06:48 | External Medical Summary | Summary of Care ---
Author Name Unknown Organization [facility] Address [address] [place] [address] Phone [phone] Care Team Providers Care Online Marketing Manager Name Role Phone Petra Marx MD Primary Care Provider Encounter Details Date Type Department Care Team (Late st Contact Info) Description 02/10/2024 Orders [address] [facility] [address] [place] [address] Petra Marx MD [address] [place] [address] Allergies Active Allergy Reactions Criticality [...] rinse after steroid. Test performed by Lazarus OIL AND GAS DRAFTER CPFT Moderate persistent asthma w ithout complication 10/11/2019 08/09/2021 Overview: In Check dial performed to assess inhaler technique: 11/25/19 Name of inhalers Albuterol Pass: Yes at 40L/min and Trelegy Ellipta Pass: Yes at 35L/min. Encourage to take deep breaths, use aero chamber, and rinse after steroid. Test performed by Lazarus OIL AND GAS DRAFTER CPFT Ulcer of left lower extremit y, [...] rinse after steroid. Test performed by Lazarus OIL AND GAS DRAFTER CPFT Groupl B, by GOLD 2017 classification [...] rinse after steroid. Test performed by Lazarus OIL AND GAS DRAFTER CPFT Acute. Anemia 10/19/2017 08/09/2021 Malabsorption 10/19/2017 [...] mRNA, LNP-s, No Pre serve, 2-Dose Series ([employer]) 07/12/2021,05/16/2021,11/18/2020,11/04 COVID-19, LNP-s, No Preserve , Josue-sucrose, Ages 12+ (Pfizer) 05/16/2022 Covid-19, Mrna, Lnp-s, Pf, B ivalent, 30 Mcg, IM, 12 yrs and above ([employer]) 08/06/2022 Pneumococcal Conjugate Vacc, 13 Valent (Prevnar) [...] 12:30 PM EDT Home Visit ising at [facility] [address] [address] Sally Bonilla, RN [address] [place] [address] 07/04/2024 10:30 AM EDT Office Visit Sleep Disorders Ctr [facility] [address] [place] [phone] Andria Goldstein CRNP [address] [place] [address] 07/11/2024 2:00 PM EDT Scheduled Telephone Interventional Pain Center, [facility] [address] [place] [address] [facility], Nurse Phone Call Interventional Pain [facility] [address] [place] [address] 07/27/2024 12:45 PM EDT Immunization/Injec tion Hematology/Oncology Treatment, [place] [address] [place], [place] [phone] [place], Chair 2 Hem Onc Scenery [address] [place] [address] 08/03/2024 12:00 PM EDT Office Visit Family [facility] [address] [place] [address] Petra Marx MD [address] [place] [address] 08/19/2024 10:00 AM EST Office Visit [facility] [address] [address] Petra Marx MD [address] [place] [address] 08/30/2024 12:00 PM EST Office Visit Gastroenterology, [facility] [address] [place] [place] [address] Breann Jerome CRNP [address] [place] [address] 09/14/2024 11:00 AM EST Nurse Only Ancillary [address] [place] [address] [place], Nurse [address] [place] [address] 02/02/2025 12:30 PM EDT Imaging Radiology [address] [place] [address] Health Maintenance Due Date Last Done Comments [...] Additional history exists CKD HGB USE SMARTSET 91368 03/17/202503/17, 03/17/2024, 12/25/2023, Additional history exists CKD PHOS USE SMARTSET 52767 03/17/202503/05, 02/18/2024, 05/01/2023, Additional history exists O2 [...] D LEVEL ONCE IN A LIFETIME-USE SMARTSET# 97129 Completed 02/18/2024, 05/01/2023, 12/28/2014, Additional history exists [...] this encounter Medical Devices Implanted Type Area Human Services Assistant Device Identifier Shelf Expiration Date Model / Serial / Lot Port Power Mri W/8fr Cath - [id number] Implanted:Qty : 1 on 11/02/2017 by Ignacio Guevara MD at OR [facility] Right: Internal Jugular CR BARD : PERIPHERAL VASCULAR 07/04/2019 [id number] / / [id number] documented as of this encounter Procedures Procedure [...] interpreted or resulted by a [facility] or [facility] contracted radiologist. Petra Marx MD RADIOLOGY (RAD [...] specific identity) Health Care Agent Care Teams Online Marketing Manager Relationship Specialty Start Date End Date Petra Marx MD [address] [place] [address] PCP - General Internal Medicine 11/09/23 documented as of this encounter
--- OUTSIDE RECORDS SUMMARY | 2024-06-30 06:49 | External Medical Summary | Summary of Care ---
Author Name Unknown Organization [facility] Address [address] [place] [address] Phone [phone] Care Team Providers Care Silk Hanger Name Role Phone Petra Marx MD Primary Care Provider Reason for Visit * Reason Onset Date Comments Sleep Apnea Device 05/19/2024 Encounter Details Date Type Department Care Team (Late st Contact Info) Description 05/19/2024 Telephone Sleep Disorders Ctr [facility] [address] [place] [address] Andria Goldstein CRNP [address] [place] [address] Sleep Apnea Device Allergies Active Allergy Reactions Criticality Noted Date Comments Aminoglycosides Nebcin Atropine ? allergy to Atropine Cephalosporins Keflin Dipyridamole Persantine Meperidine And Related ? allergy to Demerol Metolazone 10/03/2021 Severe hypokalemia Parasympathomimetics Urecholine Piperacillin Sod-Tazobactam So Rash 02/03 Prochlorperazine Salicylates ASA Sulfa Antibiotics Bactrim Venlafaxine 02/03/2013 Nervous reaction documented as of this encounter (statuses as of 06/22/2024) Medications Medication Sig Dispensed Refills Start Date [...] needed for Pain, Moderate. 02/14/2024 Active Maurice Vershira In Vitro Strip (Glucose Blood) Test [...] Tablet 03/23/2024 Active Zinc 25 MG Oral TabletIndications: Low [...] BEFORE MEALS. 60 Tablet 05/08/2024 Active Creon [id number] UNIT Oral Capsule Delayed Release Particles (Pancrelipase (Jvh-[id number])) TAKE FOUR CAPSULES THREE TIMES DAILY 720 Capsule 05/09/2024 Active documented as of this encounter (statuses as of 06/22/2024) Active Problems Problem Noted Date Diagnosed Date Colon polyps 05/24/2024 Overview: 05/2024. Done at [facility]. Three small. Clostridioides difficile infection 03/23/2024 Chronic diastolic congestive heart failure 11/09 Secondary hyperparathyroidism of renal origin Hypoglycemia 06/29/2023 Last Assessment & Plan: Glucose 103 during visit. Reordered freestyle Larisa-patient had previously. Follows with endocrinology at [facility] Stage 3a chronic kidney disease [...] as of this encounter (statuses as of 06/22/2024) Resolved Problems Problem Noted Date Diagnosed Date [...] rinse after steroid. Test performed by Lazarus LOAN CONSULTANT CPFT Moderate persistent asthma w ithout complication 10/11/2019 08/09/2021 Overview: In Check dial performed to assess inhaler technique: 11/25/19 Name of inhalers Albuterol Pass: Yes at 40L/min and Trelegy Ellipta Pass: Yes at 35L/min. Encourage to take deep breaths, use aero chamber, and rinse after steroid. Test performed by Lazarus LOAN CONSULTANT CPFT Ulcer of left lower extremit [...] rinse after steroid. Test performed by Lazarus LOAN CONSULTANT CPFT Groupl B, by GOLD 2017 [...] rinse after steroid. Test performed by Lazarus LOAN CONSULTANT CPFT Acute. Anemia 10/19/2017 08/09/2021 Malabsorption [...] as of this encounter (statuses as of 06/22/2024) Immunizations Name Administration Dates Next Due COVID-19 mRNA, LNP-s, No Pre serve, 2-Dose Series ([employer]) 07/12/2021,05/16/2021,11/18/2020,11/04 COVID-19, LNP-s, No Preserve , Josue-sucrose, Ages 12+ ([employer]) 05/16/2022 Covid-19, Mrna, Lnp-s, Pf, B ivalent, 30 Mcg, IM, 12 yrs and above ([employer]) 08/06/2022 Pneumococcal Conjugate Vacc, 13 Valent (Prevnar) [...] encounter Miscellaneous Notes * Telephone Encounter - Mi January LARRY Espinosa - 05/20/2024 5:55 PM EDT Called pt, no answer. LM to return call. Ok to schedule first available with Andria Ramos wait list for sooner apt. * Telephone Encounter - Dinora Quinn LPN - 05/19/2024 3:21 PM EDT Pt would like a visit with Andria to discuss all options. Please reach out to pt to get her scheduled for return visit with Andria. * Telephone Encounter - Andria Goldstein CRNP - 05/19/2024 1:14 PM EDT Sleep study showed moderately severe sleep apnea with low oxygen to 82%. If she is willing to restart PAP therapy, would need titration study with nasal mask and chin strap, along with face to face visit. If she would like to discuss Inspire for treatment of sleep apnea, a return visit can be arranged with one of us or a consult can be placed to [facility] in [place]. * Telephone Encounter - Dinora Quinn LPN - 05/19/2024 11:44 AM EDT I spoke with the pt. She says she never heard anything from [facility]: machine wasn't serviced, she hasn't used in > a year. She had a sleep study without PAP done 04/19/24. Please advise. * Telephone Encounter - Andria Goldstein CRNP - 05/19/2024 7:09 AM EDT Reviewed telephone encounter from 06/23/2023. As of 06/23/2023, it was not time for replacement and machine needed to be serviced. Was this done by [facility]? Is patient using BPAP? Provide download if using. Titration study was ordered to assess treatment needs but baseline study completed instead, 04/19/2024. documented in this encounter Plan of Treatment Upcoming Encounters Date Type Department Care Team (Late st Contact Info) Description 06/23/2024 10:00 AM EDT Office Visit Neurology [facility] [address] [facility] [place] [address] Rani Varela MD [address] [facility] [place] [address] 06/30/2024 12:30 PM EDT Home Visit [facility] [place], [facility] [address] [facility] [place] [address] Sally Bonilla, RANDELL 132 [facility] [place] [address] 07/04/2024 10:30 AM EDT Office Visit Sleep Disorders Ctr [facility] [place] [address] [place] [phone] Andria Goldstein CRNP 132 [facility] [place] [address] 07/11/2024 2:00 PM EDT Scheduled Telephone Interventional Pain Center, [facility] [address] [facility] [place] [address] Darryn, Nurse Phone Call Interventional Pain [facility] [address] [place] [address] 07/27/2024 12:45 PM EDT Immunization/Injec tion Hematology/Oncology Treatment, [place] [address] [place] [phone] Jolanta, Chair 2 Hem Onc [facility] [address] [facility] [place] [address] 08/03/2024 12:00 PM EDT Office Visit Family Practice [facility] [address] [place] [address] Petra Marx MD [address] [place] [address] 08/19/2024 10:00 AM EST Office Visit Family Practice [facility] [address] [place] [address] Petra Marx MD [address] [place] [address] 08/30/2024 12:00 PM EST Office Visit Gastroenterology, [facility] 132 [place] [address] Breann Jerome CRNP [address] [place] [address] 09/14/2024 11:00 AM EST Nurse Only Ancillary [address] [place] [address] [place], Nurse [address] [place] [address] 02/02/2025 12:30 PM EDT Imaging Radiology [address] [place] [address] Health Maintenance Due Date Last Done Comments Cologuard 1997 Sigmoidoscopy 1997 Fecal Occult Blood Test 08/09/2011 08/09/20 10, 11/14/2009, 12/16/2007, Additional history exists Albumin/Creatinine Ratio 05/01/2024 05/01/2023, 03/05 Influenza Vaccine (FLU shot) (#1) 2024 06/09/2023, 06/12/2022, 06/26/2020, Additional history exists Adult Wellness Visit 09/08/2024 09/08/2023, 09/03/2022, 05/27/2021 Depression Monitoring 09/08/2024 09/08/2023 GFR 09/30/2024 03/31/2024, 03/05, 02/18/2024, Additional history exists TSH 10/31/2024 10/31/2023, 2023, 07/30/2022, Additional history exists Mammogram 01/31/2025 02/01/2024, 01/04, 01/29/2023, Additional history exists CKD HGB USE SMARTSET 77836 03/17/202503/17, 03/17/2024, 12/25/2023, Additional history exists CKD PHOS USE SMARTSET 81333 03/17/202503/05, 02/18/2024, 05/01/2023, Additional history exists O2 [...] D LEVEL ONCE IN A LIFETIME-USE SMARTSET# 57233 Completed 02/18/2024, 05/01/2023, 12/28/2014, Additional history exists [...] this encounter Medical Devices Implanted Type Area Imaging Account Manager Device Identifier Shelf Expiration Date Model / Serial / Lot Port Power Mri W/8fr Cath - [id number] Implanted:Qty : 1 on 11/02/2017 by Ignacio Guevara MD at OR [facility] [address] Right: Internal Jugular CR BARD : PERIPHERAL VASCULAR 07/04/2019 [id number] / / [id number] documented as of this encounter Advance Directives Healthcare Agents on File Name Relationship Healthcare Agent Relationship Communication Ivonne Martinez Other - (no specific identity) Health Care Agent Care Teams Silk Hanger Relationship Specialty Start Date End Date Petra Marx MD 132 [place] [address] PCP - General Internal Medicine 11/09/23 documented as of this encounter
--- OUTSIDE RECORDS SUMMARY | 2024-06-30 06:49 | External Medical Summary | Summary of Care ---
Author Name Unknown Organization [facility] Address [address] [place] [address] Phone [phone] Care Team Providers Care Broom Machine Operator Name Role Phone Petra Marx MD Primary Care Provider Encounter Details Date Type Department Care Team (Late st Contact Info) Description 02/04/2024 Orders Only Family Practice [facility] [address] [place] [address] Petra Marx MD [address] [place] [address] Allergies Active Allergy Reactions Criticality [...] Colon polyps 05/24/2024 Overview: 05/2024. Done at [facility]. Three small. Clostridioides difficile infection 03/23/2024 Chronic diastolic congestive heart failure 11/09 Secondary hyperparathyroidism of renal origin Hypoglycemia 06/29/2023 Last Assessment & Plan: Glucose 103 during visit. Reordered freestyle Larisa-patient had previously. Follows with endocrinology at [facility] Stage 3a chronic kidney disease 04/16/2023 COPD, [...] rinse after steroid. Test performed by Lazarus DRY KILN BURNER CPFT Moderate persistent asthma w ithout complication 10/11/2019 08/09/2021 Overview: In Check dial performed to assess inhaler technique: 11/25/19 Name of inhalers Albuterol Pass: Yes at 40L/min and Trelegy Ellipta Pass: Yes at 35L/min. Encourage to take deep breaths, use aero chamber, and rinse after steroid. Test performed by Lazarus DRY KILN BURNER CPFT Ulcer of left lower extremit y, [...] rinse after steroid. Test performed by Lazarus DRY KILN BURNER CPFT Groupl B, by GOLD 2017 classification [...] rinse after steroid. Test performed by Lazarus DRY KILN BURNER CPFT Acute. Anemia 10/19/2017 08/09/2021 Malabsorption 10/19/2017 [...] mRNA, LNP-s, No Pre serve, 2-Dose Series ([employer]) 07/12/2021,05/16/2021,11/18/2020,11/04 COVID-19, LNP-s, No Preserve , Josue-sucrose, Ages 12+ (Pfizer) 05/16/2022 Covid-19, Mrna, Lnp-s, Pf, B ivalent, 30 Mcg, IM, 12 yrs and above ([employer]) 08/06/2022 Pneumococcal Conjugate Vacc, 13 Valent (Prevnar) [...] No 11/19/2023 Does the household have a [facility] source of income? (Household - for ages [...] 12:30 PM EDT Home Visit ising at [facility] 132 [place] [address] Sally Bonilla, RN 132 [place] [address] 07/04/2024 10:30 AM EDT Office Visit Sleep Disorders Ctr [facility] [address] [place] [phone] Andria Goldstein CRNP [address] [place] [address] 07/11/2024 2:00 PM EDT Scheduled Telephone Interventional Pain Center, [facility] [address] [place] [address] [facility], Nurse Phone Call Interventional Pain [facility] [address] [place] [address] 07/27/2024 12:45 PM EDT Immunization/Injec tion Hematology/Oncology Treatment, [place] [address] [place], [place] [phone] [place], Chair 2 Hem Onc Scenery [address] [place] [address] 08/03/2024 12:00 PM EDT Office Visit Family [facility] [address] [place] [address] Petra Marx MD [address] [place] [address] 08/19/2024 10:00 AM EST Office Visit [facility] [address] [place] [address] Petra Marx MD [address] [place] [address] 08/30/2024 12:00 PM EST Office Visit Gastroenterology, [facility] [address] [place] [address] Breann Jerome CRNP 132 [place] [address] 09/14/2024 11:00 AM EST Nurse Only Ancillary [address] [place] [address] [place], Nurse [address] [place] [address] 02/02/2025 12:30 PM EDT Imaging Radiology [address] [place] [address] Health Maintenance Due Date Last Done Comments [...] Additional history exists CKD HGB USE SMARTSET 30782 03/17/202503/17, 03/17/2024, 12/25/2023, Additional history exists CKD PHOS USE SMARTSET 39899 03/17/202503/05, 02/18/2024, 05/01/2023, Additional history exists O2 [...] D LEVEL ONCE IN A LIFETIME-USE SMARTSET# 80178 Completed 02/18/2024, 05/01/2023, 12/28/2014, Additional history exists [...] this encounter Medical Devices Implanted Type Area Turbinated Bone Grinder Device Identifier Shelf Expiration Date Model / Serial / Lot Port Power Mri W/8fr Cath - [id number] Implanted:Qty : 1 on 11/02/2017 by Ignacio Guevara MD at OR [facility] Right: Internal Jugular CR BARD : PERIPHERAL VASCULAR 07/04/2019 [id number] / / [id number] documented as of this encounter Procedures Procedure [...] interpreted or resulted by a [facility] or [facility] contracted radiologist. Petra aMrx MD RAD CT documented in this encounter [...] specific identity) Health Care Agent Care Teams Broom Machine Operator Relationship Specialty Start Date End Date Petra Marx MD [address] [place] [address] PCP - General Internal Medicine 11/09/23 documented as of this encounter
--- OUTSIDE RECORDS SUMMARY | 2024-06-30 06:49 | External Medical Summary | Summary of Care ---
Author Name Unknown Organization [facility] Address [address] [place] [address] Phone [phone] Care Team Providers Care Zipper Lining Folder Name Role Phone Petra Marx MD Primary Care Provider Encounter Details Date Type Department Care Team (Late st Contact Info) Description 02/09/2024 Orders Only Family Practice [facility] [address] [place] [address] Petra Marx MD [address] [facility] [place] [address] Allergies Active Allergy Reactions Criticality [...] 05/24/2024 Overview: 05/2024. Done at [facility]. Three small. Clostridioides difficile infection 03/23/2024 Chronic diastolic congestive heart failure 11/09 Secondary hyperparathyroidism of renal origin Hypoglycemia 06/29/2023 Last Assessment & Plan: Glucose 103 during visit. Reordered freestyle Larisa-patient had previously. Follows with endocrinology at [facility] Stage 3a chronic kidney disease 04/16/2023 [...] rinse after steroid. Test performed by Lazarus PARKER CPFT Moderate persistent asthma w ithout complication 10/11/2019 08/09/2021 Overview: In Check dial performed to assess inhaler technique: 11/25/19 Name of inhalers Albuterol Pass: Yes at 40L/min and Trelegy Ellipta Pass: Yes at 35L/min. Encourage to take deep breaths, use aero chamber, and rinse after steroid. Test performed by Lazarus PARKER CPFT Ulcer of left lower extremit y, [...] rinse after steroid. Test performed by Lazarus PARKER CPFT Groupl B, by GOLD 2017 classification [...] rinse after steroid. Test performed by Lazarus PARKER CPFT Acute. Anemia 10/19/2017 08/09/2021 Malabsorption 10/19/2017 [...] mRNA, LNP-s, No Pre serve, 2-Dose Series ([employer]) 07/12/2021,05/16/2021,11/18/2020,11/04 COVID-19, LNP-s, No Preserve , Josue-sucrose, Ages 12+ (Pfizer) 05/16/2022 Covid-19, Mrna, Lnp-s, Pf, B ivalent, 30 Mcg, IM, 12 yrs and above ([employer]) 08/06/2022 Pneumococcal Conjugate Vacc, 13 Valent (Prevnar) [...] 11/19/2023 Does the household have a [facility] source of income? (Household - for ages [...] 12:30 PM EDT Home Visit ising at [facility] [address] [place] [address] Sally Bonilla, RN 132 [place] [address] 07/04/2024 10:30 AM EDT Office Visit Sleep Disorders Ctr [facility] [address] [place] [address] Andria Goldstein CRNP [address] [place] [address] 07/11/2024 2:00 PM EDT Scheduled Telephone Interventional Pain Center, [facility] [address] [place] [address] [facility], Nurse Phone Call Interventional Pain [facility] [address] [place] [address] 07/27/2024 12:45 PM EDT Immunization/Injec tion Hematology/Oncology Treatment, [place] [address] [place], [place] [phone] [place], Chair 2 Hem Onc Scenery [address] [place] [address] 08/03/2024 12:00 PM EDT Office Visit Family [facility] [address] [place] [address] Petra Marx MD [address] [place] [address] 08/19/2024 10:00 AM EST Office Visit [facility] [address] [place] [address] Petra Marx MD [address] [place] [address] 08/30/2024 12:00 PM EST Office Visit Gastroenterology, [facility] [address] [place] [address] Breann Jerome CRNP 132 [place] [address] 09/14/2024 11:00 AM EST Nurse Only Ancillary [address] [place] [address] [place], Nurse [address] [place] [address] 02/02/2025 12:30 PM EDT Imaging Radiology [address] [place] [address] Health Maintenance Due Date Last Done Comments [...] Additional history exists CKD HGB USE SMARTSET 98855 03/17/202503/17, 03/17/2024, 12/25/2023, Additional history exists CKD PHOS USE SMARTSET 98413 03/17/202503/05, 02/18/2024, 05/01/2023, Additional history exists O2 [...] D LEVEL ONCE IN A LIFETIME-USE SMARTSET# 17749 Completed 02/18/2024, 05/01/2023, 12/28/2014, Additional history exists [...] this encounter Medical Devices Implanted Type Area Memory Care Program Resident Device Identifier Shelf Expiration Date Model / Serial / Lot Port Power Mri W/8fr Cath - [id number] Implanted:Qty : 1 on 11/02/2017 by Ignacio Guevara MD at OR [facility] Right: Internal Jugular CR BARD : PERIPHERAL VASCULAR 07/04/2019 [id number] / / [id number] documented as of this encounter Procedures Procedure [...] interpreted or resulted by a [facility] or [facility] contracted radiologist. Petra Marx MD RADIOLOGY (RAD [...] specific identity) Health Care Agent Care Teams Zipper Lining Folder Relationship Specialty Start Date End Date Petra Marx MD [address] [place] [address] PCP - General Internal Medicine 11/09/23 documented as of this encounter
--- OUTSIDE RECORDS SUMMARY | 2024-06-30 06:49 | External Medical Summary | Summary of Care ---
Author Name Unknown Organization [facility] Address [address] [place] [address] Phone [phone] Care Team Providers Care Professor Of Physical Education Name Role Phone Petra Marx MD Primary Care Provider Encounter Details Date Type Department Care Team (Late st Contact Info) Description 02/10/2024 Orders Only Family Practice [facility] [address] [place] [address] Petra Marx MD [address] [facility] [place] [place] [address] Allergies Active Allergy Reactions Criticality [...] Colon polyps 05/24/2024 Overview: 05/2024. Done at [facility]. Three small. Clostridioides difficile infection 03/23/2024 Chronic diastolic congestive heart failure 11/09 Secondary hyperparathyroidism of renal origin Hypoglycemia 06/29/2023 Last Assessment & Plan: Glucose 103 during visit. Reordered freestyle Larisa-patient had previously. Follows with endocrinology at [facility] Stage 3a chronic kidney disease [...] every day") Medication Regimen All Classes - FAIBANA Class D, Asthma/COPD Overlap - Inhaled Glucocorticoid-LABA [...] rinse after steroid. Test performed by Lazarus PRINTING PRESSMAN CPFT Moderate persistent asthma w ithout complication 10/11/2019 08/09/2021 Overview: In Check dial performed to assess inhaler technique: 11/25/19 Name of inhalers Albuterol Pass: Yes at 40L/min and Trelegy Ellipta Pass: Yes at 35L/min. Encourage to take deep breaths, use aero chamber, and rinse after steroid. Test performed by Lazarus PRINTING PRESSMAN CPFT Ulcer of left lower extremit [...] rinse after steroid. Test performed by Lazarus PRINTING PRESSMAN CPFT Groupl B, by GOLD 2017 [...] rinse after steroid. Test performed by Lazarus PRINTING PRESSMAN CPFT Acute. Anemia 10/19/2017 08/09/2021 Malabsorption [...] mRNA, LNP-s, No Pre serve, 2-Dose Series ([employer]) 07/12/2021,05/16/2021,11/18/2020,11/04 COVID-19, LNP-s, No Preserve , Josue-sucrose, Ages 12+ (Pfizer) 05/16/2022 Covid-19, Mrna, Lnp-s, Pf, B ivalent, 30 Mcg, IM, 12 yrs and above ([employer]) 08/06/2022 Pneumococcal Conjugate Vacc, 13 Valent (Prevnar) [...] No 11/19/2023 Does the household have a [facility] source [facility] income? (Household - for [...] Home Visit ising at [facility] [address] [place] [address] Sally Bonilla, RN [address] [place] [address] 07/04/2024 10:30 AM EDT Office Visit Sleep Disorders Ctr [facility] [address] [place] [phone] Andria Goldstein CRNP [address] [place] [address] 07/11/2024 2:00 PM EDT Scheduled Telephone Interventional Pain Center, [facility] [address] [place] [address] [facility], Nurse Phone Call Interventional Pain [facility] [address] [place] [address] 07/27/2024 12:45 PM EDT Immunization/Injec tion Hematology/Oncology Treatment, [place] [address] [place], [place] [phone] Park, Chair 2 Hem Onc Scenery [address] [place] [address] 08/03/2024 12:00 PM EDT Office Visit Family [facility] [address] [place] [address] Petra Marx MD [address] [place] [address] 08/19/2024 10:00 AM EST Office Visit [facility] [address] [place] [address] Petra Marx MD [address] [place] [address] 08/30/2024 12:00 PM EST Office Visit Gastroenterology, [facility] [address] [place] [address] Breann Jerome CRNP [address] [place] [address] 09/14/2024 11:00 AM EST Nurse Only Ancillary [address] [place] [address] [place], Nurse [address] [place] [address] 02/02/2025 12:30 PM EDT Imaging Radiology [address] [place] [address] Health Maintenance Due Date Last Done Comments [...] Additional history exists CKD HGB USE SMARTSET 99107 03/17/202503/17, 03/17/2024, 12/25/2023, Additional history exists CKD PHOS USE SMARTSET 55552 03/17/202503/05, 02/18/2024, 05/01/2023, Additional history exists O2 [...] D LEVEL ONCE IN A LIFETIME-USE SMARTSET# 72872 Completed 02/18/2024, 05/01/2023, 12/28/2014, Additional history exists [...] this encounter Medical Devices Implanted Type Area Global Project Manager Device Identifier Shelf Expiration Date Model / Serial / Lot Port Power Mri W/8fr Cath - [id number] Implanted:Qty : 1 on 11/02/2017 by Ignacio Guevara MD at OR [facility] Right: Internal Jugular CR BARD : PERIPHERAL VASCULAR 07/04/2019 [id number] / / [id number] documented as of this encounter Procedures Procedure [...] interpreted or resulted by a [facility] or [facility] contracted radiologist. Petra Marx MD RAD CT [...] specific identity) Health Care Agent Care Teams Professor Of Physical Education Relationship Specialty Start Date End Date Petra Marx MD [address] [place] [address] PCP - General Internal Medicine 11/09/23 documented as of this encounter
--- OUTSIDE RECORDS SUMMARY | 2024-06-30 06:49 | External Medical Summary | Summary of Care ---
Author Name Unknown Organization [facility] Address [address] [place] [address] Phone [phone] Care Team Providers Care Greeting Card Maker Name Role Phone Petra Marx MD Primary Care Provider Encounter Details Date Type Department Care Team (Late st Contact Info) Description 06/22/2024 Population Health External Data Unspecified Department Allergies [...] as needed for Pain, Moderate. 02/14/2024 Active [facility] (Glucose Blood) Test [...] BEFORE MEALS. 60 Tablet 05/08/2024 Active Creon 61739-24244 UNIT Oral Capsule Delayed Release Particles (Pancrelipase (Lqw-Ifhd-Epnf)) TAKE FOUR CAPSULES THREE TIMES DAILY 720 [...] Colon polyps 05/24/2024 Overview: 05/2024. Done at [facility]. Three small. Clostridioides difficile infection 03/23/2024 Chronic diastolic congestive heart failure 11/09 Secondary hyperparathyroidism of renal origin Hypoglycemia 06/29/2023 Last Assessment & Plan: Glucose 103 during visit. Reordered freestyle Larisa-patient had previously. Follows with endocrinology at [facility] Stage 3a chronic kidney disease 04/16/2023 [...] after steroid. Test performed by Lazarus AIRPLANE WOODWORKER CPFT Moderate persistent asthma w ithout complication 10/11/2019 08/09/2021 Overview: In Check dial performed to assess inhaler technique: 11/25/19 Name of inhalers Albuterol Pass: Yes at 40L/min and Trelegy Ellipta Pass: Yes at 35L/min. Encourage to take deep breaths, use aero chamber, and rinse after steroid. Test performed by Lazarus AIRPLANE WOODWORKER CPFT Ulcer of left lower extremit y, [...] after steroid. Test performed by Lazarus AIRPLANE WOODWORKER CPFT Groupl B, by GOLD 2017 classification [...] after steroid. Test performed by Lazarus AIRPLANE WOODWORKER CPFT Acute. Anemia 10/19/2017 08/09/2021 Malabsorption 10/19/2017 [...] mRNA, LNP-s, No Pre serve, 2-Dose Series ([employer]) 07/12/2021,05/16/2021,11/18/2020,11/04 COVID-19, LNP-s, No Preserve , Josue-sucrose, Ages 12+ ([employer]) 05/16/2022 Covid-19, Mrna, Lnp-s, Pf, B ivalent, 30 Mcg, IM, 12 yrs and above ([employer]) 08/06/2022 Pneumococcal Conjugate Vacc, 13 Valent (Prevnar) [...] 11:40 AM EDT Office Visit Family Practice [facility] [address] [address] Petra Marx MD [address] [place] [address] 06/23/2024 10:00 AM EDT Office Visit Neurology [facility] [address] [place] [address] Rani Varela MD 200 [facility] [place] [address] 06/30/2024 12:30 PM EDT Home Visit [facility], [facility] [address] [address] Sally Bonilla RN [address] [place] [address] 07/04/2024 10:30 AM EDT Office Visit Sleep Disorders Ctr [facility] [address] [phone] Andria Goldstein CRNP [address] [place] [address] 07/11/2024 2:00 PM EDT Scheduled Telephone Interventional Pain Center, [facility] [address] [address] Darryn, Nurse Phone Call Interventional Pain [facility] [address] [address] 07/27/2024 12:45 PM EDT Immunization/Injec tion Hematology/Oncology Treatment, [place] [address] [place] [phone] Jolanta, Chair 2 Hem Onc Scenery [address] [place] [address] 08/03/2024 12:00 PM EDT Office Visit [facility] [address] [place] [address] Petra Marx MD [address] [place] [address] 08/19/2024 10:00 AM EST Office Visit [facility] [address] [place] [address] Petra Marx MD [address] [place] [address] 08/30/2024 12:00 PM EST Office Visit Gastroenterology, [facility] [address] [place] [address] Breann Jerome CR[facility] [place] [address] 09/14/2024 11:00 AM EST Nurse Only Ancillary [address] [place] [address] [place], Nurse [address] [place] [address] 02/02/2025 12:30 PM EDT Imaging Radiology [address] [place] [address] Health Maintenance Due Date Last Done Comments [...] Additional history exists CKD HGB USE SMARTSET 45123 03/17/202503/17, 03/17/2024, 12/25/2023, Additional history exists CKD PHOS USE SMARTSET 55113 03/17/202503/05, 02/18/2024, 05/01/2023, Additional history exists O2 [...] D LEVEL ONCE IN A LIFETIME-USE SMARTSET# [id number] Completed 02/18/2024, 05/01/2023, 12/28/2014, Additional history exists [...] this encounter Medical Devices Implanted Type Area Thermal Cutting Tracer Machine Operator Device Identifier Shelf Expiration Date Model / Serial / Lot Port Power Mri W/8fr Cath - [id number] Implanted:Qty : 1 on 11/02/2017 by Ignacio Guevara MD at OR [facility] Right: Internal Jugular CR BARD : PERIPHERAL VASCULAR 07/04/2019 [id number] / / [id number] documented as of this encounter Advance Directives Healthcare Agents on File Name Relationship Healthcare Agent Relationship Communication Ivonnepetra Martinez Other - (no specific identity) Health Care Agent Care Teams Greeting Card Maker Relationship Specialty Start Date End Date Petra Marx MD [address] [place] [address] PCP - General Internal Medicine 11/09/23 documented as of this encounter
--- OUTSIDE RECORDS SUMMARY | 2024-06-30 06:49 | External Medical Summary | Summary of Care ---
Author Name Unknown Organization [facility] Address [address] [place] [address] Phone [phone] Care Team Providers Care Meter Supervisor Name Role Phone Petra Marx MD Primary Care Provider Reason for Visit * Reason Onset Date Comments [facility]: Maintenance 06/22/2024 Encounter Details Date Type Department Care Team (Late st Contact Info) Description 06/22/2024 Telephone [facility] [place] [address] [place] [address] Britt Zimmerman LPN [address] [place] [address] [facility]: Maintenance Allergies Active Allergy [...] needed for Pain, Moderate. 02/14/2024 Active OneTouch Vershira In Vitro Strip (Glucose Blood) Test [...] BEFORE MEALS. 60 Tablet 05/08/2024 Active Creon 20881-64744 UNIT Oral Capsule Delayed Release Particles (Pancrelipase (Lsc-Nnnd-Cvju)) TAKE FOUR CAPSULES THREE TIMES DAILY 720 [...] rinse after steroid. Test performed by Lazarus VICE PRESIDENT OF DEVELOPMENT CPFT Moderate persistent asthma w ithout complication [...] and rinse after steroid. Test performed by A.Kar VICE PRESIDENT OF DEVELOPMENT CPFT Acute. Anemia 10/19/2017 08/09/2021 Malabsorption 10/19/2017 [...] mRNA, LNP-s, No Pre serve, 2-Dose Series ([employer]) 07/12/2021,05/16/2021,11/18/2020,11/04 COVID-19, LNP-s, No Preserve , Josue-sucrose, Ages 12+ (Pfizer) 05/16/2022 Covid-19, Mrna, Lnp-s, Pf, B ivalent, 30 Mcg, IM, 12 yrs and above ([employer]) 08/06/2022 Pneumococcal Conjugate Vacc, 13 Valent (Prevnar) [...] encounter Miscellaneous Notes * Telephone Encounter - Britt Zimmerman LPN - 06/22/2024 4:42 PM EDT Pt admitted to [facility] as of 06/22/24. Added to hosp list, will follow for d/c. Britt Zimmerman LPN [facility] 06/22/2024,4:42 PM documented in this encounter Plan of Treatment Upcoming Encounters Date Type Department Care Team (Late st Contact Info) Description 06/23/2024 10:00 AM EDT Office Visit Neurology [facility] [address] [place] [address] Rani Varela MD [address] [place] [address] 06/30/2024 12:30 PM EDT [facility] [place] [address] [place] [address] Sally Bonilla RN 132 [facility] [place] [address] 07/04/2024 10:30 AM EDT Office Visit Sleep Disorders Ctr [facility] [address] [phone] Andria Goldstein CRNP [address] [place] [address] 07/11/2024 2:00 PM EDT Scheduled Telephone Interventional Pain Center, [facility] [address] [address] Darryn Nurse Phone Call Interventional Pain [facility] [address] [address] 07/27/2024 12:45 PM EDT Immunization/Injec tion Hematology/Oncology Treatment, [place] [address] [place] [phone] Jolanta, Chair 2 Hem Onc Scenery [address] [place] [address] 08/03/2024 12:00 PM EDT Office Visit Family Practice [facility] [address] [address] Petra Marx MD [address] [place] [address] 08/19/2024 10:00 AM EST Office Visit Family [facility] [address] [address] Petra Marx MD [address] [place] [address] 08/30/2024 12:00 PM EST Office Visit Gastroenterology, [facility] [address] [address] Breann Jerome CRNP [address] [place] [address] 09/14/2024 11:00 AM EST Nurse Only Ancillary [address] [place] [address] [place], Nurse [address] [place] [address] 02/02/2025 12:30 PM EDT Imaging Radiology [address] [place] [address] Health Maintenance Due Date Last Done Comments [...] Additional history exists CKD HGB USE SMARTSET 40960 03/17/202503/17, 03/17/2024, 12/25/2023, Additional history exists CKD PHOS USE SMARTSET 47343 03/17/202503/05, 02/18/2024, 05/01/2023, Additional history exists O2 [...] D LEVEL ONCE IN A LIFETIME-USE SMARTSET# [id number] Completed 02/18/2024, 05/01/2023, 12/28/2014, Additional history exists [...] this encounter Medical Devices Implanted Type Area Churn Operator Margarine Device Identifier Shelf Expiration Date Model / Serial / Lot Port Power Mri W/8fr Cath - [id number] Implanted:Qty : 1 on 11/02/2017 by Ignacio Guevara MD at OR [facility] Right: Internal Jugular CR BARD : PERIPHERAL VASCULAR 07/04/2019 [id number] / / [id number] documented as of this encounter Advance Directives Healthcare Agents on File Name Relationship Healthcare Agent Relationship Communication Ivonne Michelle Other - (no specific identity) Health Care Agent Care Teams Meter Supervisor Relationship Specialty Start Date End Date Petra Marx MD 132 [facility] [place] [address] PCP - General Internal Medicine 11/09/23 documented as of this encounter
--- OUTSIDE RECORDS SUMMARY | 2024-06-30 06:49 | External Medical Summary | Summary of Care ---
Author Name Unknown Organization [facility] Address [address] [place] [address] Phone [phone] Care Team Providers Care Cement Mason [employer] Name Role Phone Petra Marx MD Primary Care Provider Encounter Details Date Type Department Care Team (Late st Contact Info) Description 02/07/2024 Orders Only Family Practice [facility] [address] [place] [address] Petra Marx MD [address] [place] [address] Allergies Active Allergy Reactions Criticality [...] polyps 05/24/2024 Overview: 05/2024. Done at [facility]. Three small. Clostridioides difficile infection 03/23/2024 Chronic diastolic congestive heart failure 11/09 Secondary hyperparathyroidism of renal origin Hypoglycemia 06/29/2023 Last Assessment & Plan: Glucose 103 during visit. Reordered freestyle Larisa-patient had previously. Follows with endocrinology at [facility] Stage 3a chronic kidney disease 04/16/2023 [...] rinse after steroid. Test performed by Lazarus SAFETY AIDE CPFT Moderate persistent asthma w ithout complication 10/11/2019 08/09/2021 Overview: In Check dial performed to assess inhaler technique: 11/25/19 Name of inhalers Albuterol Pass: Yes at 40L/min and Trelegy Ellipta Pass: Yes at 35L/min. Encourage to take deep breaths, use aero chamber, and rinse after steroid. Test performed by Lazarus SAFETY AIDE CPFT Ulcer of left lower extremit y, [...] rinse after steroid. Test performed by Lazarus SAFETY AIDE CPFT Groupl B, by GOLD 2017 classification [...] rinse after steroid. Test performed by Lazarus SAFETY AIDE CPFT Acute. Anemia 10/19/2017 08/09/2021 Malabsorption 10/19/2017 [...] mRNA, LNP-s, No Pre serve, 2-Dose Series ([employer]) 07/12/2021,05/16/2021,11/18/2020,11/04 COVID-19, LNP-s, No Preserve , Josue-sucrose, Ages 12+ (Pfizer) 05/16/2022 Covid-19, Mrna, Lnp-s, Pf, B ivalent, 30 Mcg, IM, 12 yrs and above ([employer]) 08/06/2022 Pneumococcal Conjugate Vacc, 13 Valent (Prevnar) [...] No 11/19/2023 Does the household have a [facility] source of income? (Household - for ages [...] 12:30 PM EDT Home Visit ising at [facility] [address] [address] Sally Bonilla, RN [address] [address] 07/04/2024 10:30 AM EDT Office Visit Sleep Disorders Ctr [facility] [address] [place] [phone] Andria Goldstein CRNP [address] [place] [address] 07/11/2024 2:00 PM EDT Scheduled Telephone Interventional Pain Center, [facility] [address] [place] [address] [facility], Nurse Phone Call Interventional Pain [facility] [address] [place] [address] 07/27/2024 12:45 PM EDT Immunization/Injec tion Hematology/Oncology Treatment, [place] [address] [place], [place] [phone] [place], Chair 2 Hem Onc Scenery [address] [place] [address] 08/03/2024 12:00 PM EDT Office Visit Family [facility] [address] [place] [address] Petra Marx MD [address] [place] [address] 08/19/2024 10:00 AM EST Office Visit [facility] [address] [address] Petra Marx MD [address] [place] [address] 08/30/2024 12:00 PM EST Office Visit Gastroenterology, [facility] [address] [place] [address] Breann Jerome CRNP [address] [place] [address] 09/14/2024 11:00 AM EST Nurse Only Ancillary [address] [place] [address] [place], Nurse [address] [place] [address] 02/02/2025 12:30 PM EDT Imaging Radiology [address] [place] [address] Health Maintenance Due Date Last Done Comments [...] Additional history exists CKD HGB USE SMARTSET 76137 03/17/202503/17, 03/17/2024, 12/25/2023, Additional history exists CKD PHOS USE SMARTSET 68578 03/17/202503/05, 02/18/2024, 05/01/2023, Additional history exists O2 [...] D LEVEL ONCE IN A LIFETIME-USE SMARTSET# [id number] Completed 02/18/2024, 05/01/2023, 12/28/2014, Additional history exists [...] this encounter Medical Devices Implanted Type Area Drill Operator Automatic Device Identifier Shelf Expiration Date Model / Serial / Lot Port Power Mri W/8fr Cath - [id number] Implanted:Qty : 1 on 11/02/2017 by Ignacio Guevara MD at [facility] Right: Internal Jugular CR BARD : PERIPHERAL VASCULAR 07/04/2019 [id number] / / [id number] documented as of this encounter Procedures Procedure [...] interpreted or resulted by a [facility] or [facility] contracted radiologist. Petra Marx MD RAD CT [...] specific identity) Health Care Agent Care Teams Cement [employer] Relationship Specialty Start Date End Date Petra Marx MD [address] [place] [address] PCP - General Internal Medicine 11/09/23 documented as of this encounter
--- OUTSIDE RECORDS SUMMARY | 2024-06-30 06:49 | External Medical Summary | Summary of Care ---
Author Name Unknown Organization [facility] Address [address] [place] [address] Phone [phone] Care Team Providers Care Book Retailer Name Role Phone Petra Marx MD Primary Care Provider Encounter Details Date Type Department Care Team (Late st Contact Info) Description 03/23/[address] [facility] [address] [place] [address] Petra Marx MD [address] [facility] [place] [address] Allergies Active Allergy Reactions Criticality [...] Use up to 4 x day Active Vancomycin HCl 125 MG Oral Capsule [...] daily. 30 Tablet 11 03/23/20 24 Active Fluticasone Propionate 50 MCG/ACT Nasal Suspension (Flonase) Administer 1 [place] into each nostril in the morning. 12/23/19 24 024 Discontinued Breo Ellipta 200-25 MCG/ACT Inhalation Aerosol Powder Breath Activated Inhale 1 Puff by mouth daily. 60 Blister Dosing Unit 12/25/19 24 024 Discontinued(Re fill) Creon [id number] UNIT Oral Capsule Delayed Release Particles (Pancrelipase (Ejg-Zmnj-Xpgc)) TAKE 4 CAPSULES THREE TIMES DAILY 720 [...] Tablet 2 01/25/20 24 024 Discontinued(Re fill) Pregabalin 25 MG Oral Capsule (Lyrica)Indication s:Peripheral polyneuropathy Take 1 Capsule by mouth in the morning and 1 Capsule at noon and 1 Capsule before bedtime. 90 Capsule 02/18/20 24 024 Discontinued rOPINIRole HCl 0.5 MG Oral Tablet Take 1 Tablet by mouth at bedtime. With food. 30 Tablet 02/22/20 24 024 Discontinued valACYclovir HCl 500 MG Oral Tablet (Valtrex) Take 1 tablet every other day 15 Tablet 02/26/20 24 024 Discontinued documented as of this encounter (statuses as of 06/22/2024) Active Problems Problem Noted Date Diagnosed Date Colon polyps 05/24/2024 Overview: 05/2024. Done at [facility]. Three small. Clostridioides difficile infection 03/23/2024 Chronic diastolic congestive heart failure 11/09 Secondary hyperparathyroidism of renal origin Hypoglycemia 06/29/2023 Last Assessment & Plan: Glucose 103 during visit. Reordered freestyle Larisa-patient had previously. Follows with endocrinology at [facility] Stage 3a chronic kidney disease 04/16/2023 [...] Chronic Medication Regimen: Beta Edgar Therapy: No beta-edgra secondary to Cardiology decision, recent falls OLE [...] rinse after steroid. Test performed by Lazarus BELLY ROLLER CPFT Moderate persistent asthma w ithout complication 10/11/2019 08/09/2021 Overview: In Check dial performed to assess inhaler technique: 11/25/19 Name of inhalers Albuterol Pass: Yes at 40L/min and Trelegy Ellipta Pass: Yes at 35L/min. Encourage to take deep breaths, use aero chamber, and rinse after steroid. Test performed by Lazarus BELLY ROLLER CPFT Ulcer of left lower extremit y, [...] rinse after steroid. Test performed by Lazarus BELLY ROLLER CPFT Groupl B, by GOLD 2017 classification [...] rinse after steroid. Test performed by Lazarus BELLY ROLLER CPFT Acute. Anemia 10/19/2017 08/09/2021 Malabsorption 10/19/2017 [...] mRNA, LNP-s, No Pre serve, 2-Dose Series ([employer]) 07/12/2021,05/16/2021,11/18/2020,11/04 COVID-19, LNP-s, No Preserve , Josue-sucrose, Ages 12+ (Pfizer) 05/16/2022 Covid-19, Mrna, Lnp-s, Pf, B ivalent, 30 Mcg, IM, 12 yrs and above ([employer]) 08/06/2022 Pneumococcal Conjugate Vacc, 13 Valent (Prevnar) [...] encounter Miscellaneous Notes * Telephone Encounter - Yumiko Wallace OSA - 03/24/2024 8:36 AM EDT Pt has appts scheduled for June, July ad August with her PCP, LM for pt to call back to see what appt she wants to keep for her 4mo rech * Telephone Encounter - Natty Ruiz OSA - 03/23/2024 3:23 PM EDT 4 month return, none available documented in this encounter Plan of Treatment Upcoming Encounters Date Type Department Care Team (Late st Contact Info) Description 06/23/2024 10:00 AM EDT Office Visit Neurology [facility] 200 [facility] [place] [address] Rani Varela MD 200 [facility] [place] [address] 06/30/2024 12:30 PM EDT Home Visit [facility] [address] [place] [address] [address] Sally Bonilla RN [address] [place] [address] 07/04/2024 10:30 AM EDT Office Visit Sleep Disorders Ctr [facility] [address] [phone] Andria Goldstein CRNP [address] [place] [address] 07/11/2024 2:00 PM EDT Scheduled Telephone Interventional Pain Center, [facility] [address] [address] Darryn Nurse Phone Call Interventional Pain [place] [address] [place] [address] 07/27/2024 12:45 PM EDT Immunization/Injec tion Hematology/Oncology Treatment, [place] [address] [place] [phone] [place], Chair 2 Hem Onc Scenery [address] [place] [address] 08/03/2024 12:00 PM EDT Office Visit Family Practice [facility] [address] [address] [address] Petra Marx MD [address] [place] [address] 08/19/2024 10:00 AM EST Office Visit Family Practice [facility] [address] [address] [address] Petra Marx MD [address] [place] [address] 08/30/2024 12:00 PM EST Office Visit Gastroenterology, [facility] [address] [address] Breann Jerome CRNP [address] [place] [address] 09/14/2024 11:00 AM EST Nurse Only Ancillary [address] [place] [address] [place], Nurse [address] [place] [address] 02/02/2025 12:30 PM EDT Imaging Radiology [address] [place] [address] Health Maintenance Due Date Last Done Comments [...] 07/30/2022, Additional history exists Mammogram 01/31/2025 02/01/2024, 0406/2024, 01/29/2023, Additional history exists CKD HGB USE SMARTSET 52635 03/17/202503/17, 03/17/2024, 12/25/2023, Additional history exists CKD PHOS USE SMARTSET 43617 03/17/202503/05, 02/18/2024, 05/01/2023, Additional history exists O2 [...] D LEVEL ONCE IN A LIFETIME-USE SMARTSET# 73348 Completed 02/18/2024, 05/01/2023, 12/28/2014, Additional history exists [...] this encounter Medical Devices Implanted Type Area Functional Consultant Device Identifier Shelf Expiration Date Model / Serial / Lot Port Power Mri W/8fr Cath - [id number] Implanted:Qty : 1 on 11/02/2017 by Ignacio Guevara MD at OR [facility] Right: Internal Jugular CR BARD : PERIPHERAL VASCULAR 07/04/2019 [id number] / / [id number] documented as of this encounter Additional Health Concerns Infection Onset Date Last Indicated Resolved Time C. difficile 03/18/2024 03/18/2024 04/17/2024 12:2 0 AM EDT documented as of this encounter Advance Directives Healthcare Agents on File Name Relationship Healthcare Agent Relationship Communication Ivonne Martinez Other - (no specific identity) Health Care Agent Care Teams Book Retailer Relationship Specialty Start Date End Date Petra Marx MD [address] [place] [address] PCP - General Internal Medicine 11/09/23 documented as of this encounter
--- OUTSIDE RECORDS SUMMARY | 2024-06-30 06:49 | External Medical Summary | Summary of Care ---
Author Name Unknown Organization [facility] Address [address] [place] [address] Phone [phone] Care Team Providers Care Drug Abuse Worker Name Role Phone Petra Marx MD Primary Care Provider Reason for Visit * Reason Onset Date Comments Precert Approved 06/16/2024 UBRELVY Encounter Details Date Type Department Care Team (Late st Contact Info) Description 06/16/2024 Telephone Neurology [facility] [address] [facility] [place] [address] Rani Varela MD [address] [place] [address] Precert Approved ( UBRELVY) Allergies Active Allergy Reactions Criticality Noted Date Comments Aminoglycosides Nebcin Atropine ? allergy to Atropine Cephalosporins Keflin Dipyridamole Persantine Meperidine And Related ? allergy to Demerol Metolazone 10/03/2021 Severe hypokalemia Parasympathomimetics Urecholine Piperacillin Sod-Tazobactam So Rash 02/03 Prochlorperazine Salicylates ASA Sulfa Antibiotics Bactrim Venlafaxine 02/03/2013 Nervous reaction documented as of this encounter (statuses as of 06/20/2024) Medications Medication Sig Dispensed Refills Start Date [...] BEFORE MEALS. 60 Tablet 05/08/2024 Active Creon [id number] UNIT Oral Capsule Delayed Release Particles (Pancrelipase ([id number])) TAKE FOUR CAPSULES THREE TIMES DAILY 720 [...] as of this encounter (statuses as of 06/20/2024) Active Problems Problem Noted Date Diagnosed Date Colon polyps 05/24/2024 Overview: 05/2024. Done at [facility]. Three small. Clostridioides difficile infection 03/23/2024 Chronic diastolic congestive heart failure 11/09 Secondary hyperparathyroidism of renal origin Hypoglycemia 06/29/2023 Last Assessment & Plan: Glucose 103 during visit. Reordered freestyle Larisa-patient had previously. Follows with endocrinology at [facility] Stage 3a chronic kidney disease 04/16/2023 COPD, [...] as of this encounter (statuses as of 06/20/2024) Resolved Problems Problem Noted Date Diagnosed Date [...] rinse after steroid. Test performed by Lazarus MANNEQUIN MOLDER CPFT Moderate persistent asthma w ithout complication [...] rinse after steroid. Test performed by Lazarus MANNEQUIN MOLDER CPFT Acute. Anemia 10/19/2017 08/09/2021 Malabsorption 10/19/2017 [...] as of this encounter (statuses as of 06/20/2024) Immunizations Name Administration Dates Next Due COVID-19 mRNA, LNP-s, No Pre serve, 2-Dose Series (Trivnet) 07/12/2021,05/16/2021,11/18/2020,11/04 COVID-19, LNP-s, No Preserve , Josue-sucrose, Ages 12+ (Pfizer) 05/16/2022 Covid-19, Mrna, Lnp-s, Pf, B ivalent, 30 Mcg, IM, 12 yrs and above (Trivnet) 08/06/2022 Influenza, Whole Virus 08/19/2000 Pneumococcal Conjugate [...] Self- administered - route pre-cert request to [id number] See corresponding visit note(s) for additional supporting clinical information. Office Information: Prescriber: Rani Varela MD documented in this encounter Plan of Treatment Upcoming Encounters Date Type Department Care Team (Late st Contact Info) Description 06/22/2024 11:40 AM EDT Office Visit Family Practice [facility] [address] [place] [address] Petra Marx MD [address] [place] [address] 06/23/2024 10:00 AM EDT Office Visit Neurology [facility] 200 [facility] [place] [address] Rani Varela MD [address] [facility] [place] [address] 06/30/2024 12:30 PM EDT Home Visit [facility] 132 [facility] [place] [address] Sally Bonilla, RANDELL [address] [place] [address] 07/04/2024 10:30 AM EDT Office Visit Sleep Disorders Ctr [facility] [address] [facility] [place] [phone] Andria Goldstein CRNP 132 [facility] [place] [address] 07/11/2024 2:00 PM EDT Scheduled Telephone Interventional Pain Center, [facility] 132 [facility] [place] [address] Darryn, Nurse Phone Call Interventional Pain [place] [address] [place] [address] 07/27/2024 12:45 PM EDT Immunization/Injec tion Hematology/Oncology Treatment, [place] [address] [place] [id number] Park, Chair 2 Hem Onc [address] [place] [address] 08/03/2024 12:00 PM EDT Office Visit Family [facility] [place] [address] Petra Marx MD [address] [place] [address] 08/19/2024 10:00 AM EST Office Visit Family [facility] [address] [place] [address] Petra Marx MD 132 [place] [address] 08/30/2024 12:00 PM EST Office Visit Gastroenterology, [facility] [address] [place] [place] [address] Breann Jerome CRNP 132 [place] [address] 09/14/2024 11:00 AM EST Nurse Only Ancillary [address] [place] [address] [place], Nurse [address] [place] [address] 02/02/2025 12:30 PM EDT Imaging Radiology [address] [place] [address] Health Maintenance Due Date Last Done Comments [...] Additional history exists CKD HGB USE SMARTSET 97048 03/17/202503/17, 03/17/2024, 12/25/2023, Additional history exists CKD PHOS USE SMARTSET 82771 03/17/202503/05, 02/18/2024, 05/01/2023, Additional history exists O2 [...] D LEVEL ONCE IN A LIFETIME-USE SMARTSET# 43579 Completed 02/18/2024, 05/01/2023, 12/28/2014, Additional history exists [...] this encounter Medical Devices Implanted Type Area Porter Luggage Device Identifier Shelf Expiration Date Model / Serial / Lot Port Power Mri W/8fr Cath - [id number] Implanted:Qty : 1 on 11/02/2017 by Ignacio Guevara MD at OR [facility] Right: Internal Jugular CR BARD : PERIPHERAL VASCULAR 07/04/2019 [id number] / / [id number] documented as of this encounter Advance Directives Healthcare Agents on File Name Relationship Healthcare Agent Relationship Communication Ivonne Michelle Other - (no specific identity) Health Care Agent Care Teams Drug Abuse Worker Relationship Specialty Start Date End Date Petra Marx MD [address] [place] [address] PCP - General Internal Medicine 11/09/23 documented as of this encounter
--- OUTSIDE RECORDS SUMMARY | 2024-06-30 06:50 | External Medical Summary | Summary of Care ---
Author Name Unknown Organization [facility] Address [address] [place] [address] Phone [phone] Care Team Providers Care Dispatcher Refinery Name Role Phone Petra Marx MD Primary Care Provider Reason for Visit * Reason Onset Date Comments Precert In Process 06/16/2024 16 NIRMAL KELLY UBRELVY Encounter Details Date Type Department Care Team (Late st Contact Info) Description 06/16/2024 Telephone Neurology [facility] 200 [facility] [place] [address] Rani Varela MD [address] [place] [address] Precert In Process (16 NIRMAL KELLY UBRELVY) Allergies Active Allergy Reactions Criticality Noted [...] BEFORE MEALS. 60 Tablet 05/08/2024 Active Creon [id number] UNIT Oral Capsule Delayed Release Particles (Pancrelipase ([id number])) TAKE FOUR CAPSULES THREE TIMES DAILY 720 [...] 05/24/2024 Overview: 05/2024. Done at [facility]. Three small. Clostridioides difficile infection 03/23/2024 Chronic diastolic congestive heart failure 11/09 Secondary hyperparathyroidism of renal origin Hypoglycemia 06/29/2023 Last Assessment & Plan: Glucose 103 during visit. Reordered freestyle Larisa-patient had previously. Follows with endocrinology at [facility] Stage 3a chronic kidney disease 04/16/2023 COPD, [...] rinse after steroid. Test performed by Lazarus NURSE SUPERVISOR CPFT Moderate persistent asthma w ithout complication 10/11/2019 08/09/2021 Overview: In Check dial performed to assess inhaler technique: 11/25/19 Name of inhalers Albuterol Pass: Yes at 40L/min and Trelegy Ellipta Pass: Yes at 35L/min. Encourage to take deep breaths, use aero chamber, and rinse after steroid. Test performed by Lazarus NURSE SUPERVISOR CPFT Ulcer of left lower extremit y, [...] rinse after steroid. Test performed by Lazarus NURSE SUPERVISOR CPFT Groupl B, by GOLD 2017 classification [...] rinse after steroid. Test performed by Lazarus NURSE SUPERVISOR CPFT Acute. Anemia 10/19/2017 08/09/2021 Malabsorption 10/19/2017 [...] mRNA, LNP-s, No Pre serve, 2-Dose Series (cFares) 07/12/2021,05/16/2021,11/18/2020,11/04 COVID-19, LNP-s, No Preserve , Josue-sucrose, Ages 12+ (Pfizer) 05/16/2022 Covid-19, Mrna, Lnp-s, Pf, B ivalent, 30 Mcg, IM, 12 yrs and above (cFares) 08/06/2022 Influenza, Whole Virus 08/19/2000 Pneumococcal Conjugate [...] Self- administered - route pre-cert request to [id number] See corresponding visit note(s) for additional supporting clinical information. Office Information: Prescriber: Rani Varela MD documented in this encounter Plan of Treatment Upcoming Encounters Date Type Department Care Team (Late st Contact Info) Description 06/22/2024 11:40 AM EDT Office Visit Family Practice [facility] 132 [facility] [place] [address] Petra Marx MD 132 [facility] [place] [address] 06/23/2024 10:00 AM EDT Office Visit Neurology [facility] [address] [place] [address] Rani Varela MD [address] [place] [address] 06/30/2024 12:30 PM EDT Home Visit [facility] 132 [facility] [place] [address] Sally Bonilla, RANDELL 132 [facility] [place] [address] 07/04/2024 10:30 AM EDT Office Visit Sleep Disorders Ctr [facility] [address] [place] [phone] Andria Goldstein CRNP 132 [facility] [place] [address] 07/11/2024 2:00 PM EDT Scheduled Telephone Interventional Pain Center, [facility] 132 [facility] [place] [address] Darryn, Nurse Phone Call Interventional Pain [facility] [address] [place] [address] 07/27/2024 12:45 PM EDT Immunization/Injec tion Hematology/Oncology Treatment, [address] [place] [phone] Park, Chair 2 Hem Onc [facility] [address] [facility] [place] [address] 08/03/2024 12:00 PM EDT Office Visit [facility] [place] [address] [place] [address] Petra Marx MD [address] [place] [address] 08/19/2024 10:00 AM EST Office Visit [facility] 132 [place] [address] Petra Marx MD [address] [place] [address] 08/30/2024 12:00 PM EST Office Visit Gastroenterology, [facility] [address] [place] [address] Breann Jerome CRNP [address] [place] [address] 09/14/2024 11:00 AM EST Nurse Only Ancillary [address] [place] [address] [place], Nurse [address] [place] [address] 02/02/2025 12:30 PM EDT Imaging Radiology [address] [place] [address] Health Maintenance Due Date Last Done Comments [...] Additional history exists CKD HGB USE SMARTSET 87226 03/17/202503/17, 03/17/2024, 12/25/2023, Additional history exists CKD PHOS USE SMARTSET 60444 03/17/202503/05, 02/18/2024, 05/01/2023, Additional history exists O2 [...] D LEVEL ONCE IN A LIFETIME-USE SMARTSET# 59599 Completed 02/18/2024, 05/01/2023, 12/28/2014, Additional history exists [...] this encounter Medical Devices Implanted Type Area Credentialing Analyst Device Identifier Shelf Expiration Date Model / Serial / Lot Port Power Mri W/8fr Cath - [id number] Implanted:Qty : 1 on 11/02/2017 by Ignacio Guevara MD at OR [facility] Right: Internal Jugular CR BARD : PERIPHERAL VASCULAR 07/04/2019 [id number] / / [id number] documented as of this encounter Advance Directives Healthcare Agents on File Name Relationship Healthcare Agent Relationship Communication Ivonne Michelle Other - (no specific identity) Health Care Agent Care Teams Dispatcher Refinery Relationship Specialty Start Date End Date Petra Marx MD [address] [place] [address] PCP - General Internal Medicine 11/09/23 documented as of this encounter
[2024-06-30] MEDS ORDERED: CHECK SCOPOLAMINE PATCH PLACEMENT SCH (08:00)
--- NOTE | 2024-07-01 15:19 | Discharge Summary ---
Date of Service June 30, 2024 Admission HPI Per Admitting Provider 73-year-old female with past medical history significant for chronic pancreatitis, hyperlipidemia, hypothyroidism, secondary hyperparathyroidism of renal origin, history of hypoglycemia, COPD, complex sleep apnea syndrome, chronic diastolic CHF, CKD stage III, sick sinus syndrome status post pacemaker, mitral valve disorder, chronic venous insufficiency, history of renal disease, pulmonary hypertension, history of occlusion of left saphenous vein, GERD, status post partial gastrectomy ,postsurgical malabsorption, obstructive uropathy, osteoarthritis, restless leg syndrome, osteoporosis, dysgeusia, history of C. difficile, depression, KRYSTAL, history of kidney stones, gait disturbance ambulates with walker, lives alone was brought in because of confusion and lethargy and found to have COVID, UTI and pneumonia. Patient was admitted to ICU and required BiPAP for several days. Patient also required vasopressors for hemodynamic support She was also placed on IV antibiotics for the pneumonia. Patient required mechanical ventilation due to increasing respiratory distress. She also had left-sided chest tube placed for left hydropneumothorax. After extubation, patient continued to be lethargic, weak and continued to have respiratory failure requiring high flow oxygen. Discussion was done with patient and patient's sister regarding goals of care; she reported that she did not want repeat intubation and wanted to be made comfortable as possible. General inpatient hospice evaluation was done; patient admitted under General inpatient Hospice Admission Exam Per Admitting Provider General- Lethargic, Opens her eyes to voice. appears very weak Head- atraumatic Eyes- PERRL. Neck- no JVD, Lungs- Decreased breath sounds at bilateral bases Heart- regular rate and rhythm; no murmur, no gallop. Abdomen- normal bowel sounds, soft, multiple surgical scars seen no distension Extremities- no pretibial edema, small superficial wound seen on left alberto Neuro- Drowsy;able to nods to questions. Principal Diagnosis Pneumonia Discharge Exam Patient Discharge Data Allergies Allergy/AdvReac Type Severity Reaction Status Date / Time bethanechol Allergy Intermediate RASH, Verified 05/25/24 13:17 "FEELS FUNNY" Cephalosporins Allergy Intermediate RASH, Verified 05/25/24 13:17 DIARRHEA levofloxacin Allergy Intermediate RASH,TURNED Verified 05/25/24 13:17 RED Sulfa (Sulfonamide Allergy Intermediate Generalized Verified 05/25/24 13:17 Antibiotics) Rash ertapenem Allergy Mild RASH Verified 05/25/24 13:17 atropine Allergy Unknown ON [facility] MED Verified 05/25/24 13:17 LIST clindamycin Allergy Unknown Unknown Verified 05/25/24 13:17 dipyridamole Allergy Unknown PERSANTINE--ON Verified 05/25/24 13:17 [facility] MED LIST droperidol Allergy Unknown Unknown Verified 05/25/24 13:17 meperidine [From Demerol] Allergy Unknown ? ALLERGY Verified 05/25/24 13:17 ON [facility] MED LIST promethazine Allergy Unknown UNKNOWN Verified 05/25/24 13:17 tobramycin Allergy Unknown UNKNOWN Verified 05/25/24 13:17 aspirin AdvReac Severe BLEEDING Verified 05/25/24 13:17 doxycycline AdvReac Severe severe Verified 05/25/24 13:17 Diarrhea, nausea metolazone AdvReac Severe ELECTROLYTE Verified 05/25/24 13:17 ISSUES--HYPOKALEMIA bupropion AdvReac Intermediate NERVOUS Verified 05/25/24 13:17 REACTION cephalexin AdvReac Intermediate GI SYMPTOMS Verified 05/25/24 13:17 morphine AdvReac Intermediate NERVOUS Verified 05/25/24 13:17 REACTION TO IT nitrofurantoin AdvReac Intermediate Vomiting Verified 05/25/24 13:17 [From Macrobid] prochlorperazine AdvReac Intermediate NERVOUS Verified 05/25/24 13:17 REACTION tedizolid AdvReac Intermediate GI SYMPTOMS Verified 05/25/24 13:17 venlafaxine [From Effexor] AdvReac Intermediate NERVOUS Verified 05/25/24 13:17 REACTION lamotrigine AdvReac Unknown tremors Verified 05/25/24 13:17 Hospital Course (1) Septic shock: (2) End of life care: (3) Hospice care: (4) Lethargy: 73-year-old female with past medical history significant for chronic pancreatitis, hyperlipidemia, hypothyroidism, secondary hyperparathyroidism of renal origin, history of hypoglycemia, COPD, complex sleep apnea syndrome, chronic diastolic CHF, CKD stage III, sick sinus syndrome status post pacemaker, mitral valve disorder, chronic venous insufficiency, history of renal disease, pulmonary hypertension, history of occlusion of left saphenous vein, GERD, status post partial gastrectomy ,postsurgical malabsorption, obstructive uropathy, osteoarthritis, restless leg syndrome, osteoporosis, dysgeusia, history of C. difficile, depression, KRYSTAL, history of kidney stones, gait disturbance ambulates with walker, lives alone was brought in because of confusion and lethargy and found to have COVID, UTI and pneumonia. Patient was admitted to ICU and required BiPAP for several days. Patient also required vasopressors for hemodynamic support She was also placed on IV antibiotics for the pneumonia. Patient required mechanical ventilation due to increasing respiratory distress. She also had left-sided chest tube placed for left hydropneumothorax. After extubation, patient continued to be lethargic, weak and continued to have respiratory failure requiring high flow oxygen. Discussion was done with patient and patient's sister regarding goals of care; she reported that she did not want repeat intubation and wanted to be made comfortable as possible. General inpatient hospice was initiated. Patient at 1:10 AM on 06/30/2024. Please note the above document was generated using voice recognition software. It may contain grammatical, syntax or spelling errors. Any formal questions or concerns about the content, text or information contained within the body of this dictation should be directly addressed to the provider for clarification Total Time Total Time Spent Total Time Spent (In Minutes): 35 Total Time Includes: Examination of the Patient, Discharge Planning, Medication Reconciliation, Communication With Other Providers and Other Discharge Plan Discharge Items Patient Disposition: Other Date/Time: 06/30/24 01:10
== END 2024-06-30 03:05 | disposition expired | DRG 951 ==
LOC: SUATTDRO 17:01 → 1E 17:01